=== PATIENT | male | born 1965 | race Caucasian/White ===

== ENCOUNTER 2017-11-10 20:06 | Inpatient (IN) | payer OTHER ==
--- OUTSIDE RECORDS SUMMARY | 2017-11-10 20:09 | XMS REPORT | Clinical Summary ---
:1965 Author Organization [facility] Address [address] [place] [address] Phone Care Team Providers Name Role Phone Unavailable Primary Care Provider Unavailable Allergies Active Allergy Reactions Severity Noted Date Comments Morphine 04/16/2017 Current Medications Prescription Sig. Disp. Refills Start Date End Date Status benzocaine (ORAJEL) Use as 9.45 g 0 04/21/2017 Active 7.5 % oral gel directed in the mouth or throat 3 (three) times daily as needed for Pain. amLODIPine Take 10 mg by Discontinued (NORVASC) 10 MG mouth daily. 7 tablet furosemide (LASIX) Take 20 mg by Discontinued 20 MG tablet mouth daily. 7 cilostazol (PLETAL) Take 100 mg by Discontinued 100 MG tablet mouth 2 (two) 7 times daily. multivitamin Take 1 tablet 30 tablet 0 04/20/2017 (THERAGRAN) tablet by mouth daily 7 for 30 days. folic acid Take 1 tablet 30 tablet 0 04/20/2017 (FOLVITE) 1 MG (1 mg total) 7 tablet by mouth daily for 30 days. levETIRAcetam Take 1 tablet 60 tablet 0 04/19/2017 (KEPPRA) 500 MG (500 mg total) 7 tablet by mouth 2 (two) times daily for 30 days New seizure medicine. amLODIPine Take 1 tablet 30 tablet 0 04/19/2017 (NORVASC) 10 MG (10 mg total) 7 tablet by mouth daily for 30 days. sodium bicarbonate Take 1 tablet 60 tablet 0 04/19/2017 Discontinued 650 MG tablet (650 mg total) 7 by mouth 2 (two) times daily for 30 days To treat acid level. Lactobacillus Take 1 tablet 60 tablet 0 04/21/2017 acidoph-L.bulgar by mouth 2 7 (FLORANEX) 1 (two) times million cell Tab daily for 30 per tablet days For diarrhea. loperamide Take 1 capsule 30 capsule 0 04/21/2017 (IMODIUM) 2 mg (2 mg total) 7 capsule by mouth 4 (four) times daily as needed for Diarrhea (max 16 mg per day) for up to 10 days. sodium bicarbonate Take 2 tablets 180 tablet 0 04/21/2017 650 MG tablet (1,300 mg 7 total) by mouth 3 (three) times daily for 30 days To treat acid level. Active Problems Problem Noted Date Metabolic acidosis 04/20/2017 H/O ETOH abuse 04/17/2017 Acute kidney injury (HCC) 04/17/2017 Hypertension, essential 04/17/2017 Leukocytosis 04/17/2017 Tongue laceration 04/17/2017 Status epilepticus ([facility]) 04/16/2017 Encounters Date Type Specialty Care Team Description 04/16/2017 - Hospital Encounter General Internal Jose Desouza Status epilepticus 04/21/2017 Medicine Shalini, ([facility]);Acute MD respiratory failure Danna, with hypoxia MD Roxana ([facility]);Acute encephalopathy;CODY (acute kidney injury) ([facility]);Acute kidney injury ([facility]);H/O ETOH abuse;Hypertension, essential;Laceration of tongue, subsequent encounter;Tetrahydro cannabinol (THC) use disorder, mild, abuse after 11/09/2016 Social History Tobacco Use Types Packs/Day Years Used Date Current Every Day Smoker 1 Smokeless Tobacco: Current User Tobacco Cessation: Ready to Quit: No; Counseling Given: Yes Sex Assigned at Date Recorded Not on file Last Filed Vital Signs Vital Sign Reading Time Taken Blood Pressure 133/63 04/21/2017 8:05 AM [facility] Pulse 58 04/21/2017 8:05 AM [facility] Temperature 36.8 C (98.2 F) 04/21/2017 8:05 AM [facility] Respiratory Rate 18 04/21/2017 8:05 AM [facility] Oxygen Saturation 98% 04/21/2017 8:05 AM [facility] Inhaled Oxygen Concentration - - Weight 93.2 kg (205 lb 8 oz) 04/21/2017 5:00 AM [facility] Height 185.4 cm (6' 1") 04/16/2017 8:00 PM [facility] Body Mass Index 27.11 04/21/2017 5:00 AM [facility] Plan of Treatment Not on file Results EKG-SCANNED (04/24/2017 2:03 PM)Basic Metabolic Panel (04/21/2017 5:12 AM) Only the most recent of6 resultswithin the time period is included. Component Value Ref Range Sodium 137 136 - 145 meq/L Potassium 3.6 3.5 - 5.1 meq/L Chloride 110 (H) 98 - 107 meq/L CO2 16 (L) 22 - 29 meq/L BUN 18 7 - 21 mg/dL Creatinine 2.02 (H) 0.57 - 1.25 mg/dL Glucose 91 70 - 105 mg/dL Calcium 9.3 8.4 - 10.2 mg/dL EGFR 35Comment: ESTIMATED GFR IS NOT ACCURATE mL/min/1.73 sq m CREATININE CLEARANCE IN PREDICTING GLOMERULAR FILTRATION RATE. ESTIMATED GFR IS NOT APPLICABLE FOR DIALYSIS PATIENTS. Specimen Performing Laboratory Blood [address] [address] Blood gas, arterial (04/20/2017 10:49 AM)Only the most recent of2 resultswithin the time period is included. Component Value Ref Range pH, Arterial 7.38 7.35 - 7.45 pCO2, Arterial 28 (L) 35 - 45 mmHg pO2, Arterial 95 (H) 80 - 90 mmHg O2 Sat, Arterial 97.4 (H) 96.0 - 97.0 % HCO3, Arterial 16 (L) 21 - 29 mmol/L Base Excess, Arterial -7.2 (L) -2.0 - 3.0 mmol/L Patient Temperature 36.5 C FIO2 21.0 % Specimen Performing Laboratory Blood, Arterial - Arm, Right [address] [address] PTH, intact (04/20/2017 4:25 AM) Component Value Ref Range PTH 41.8 8.5 - 72.5 pg/mL Specimen Performing Laboratory Blood - Arm, Left [address] [address] STOOL PATH CHARGE (04/19/2017 12:58 PM) Component Value Ref Range Pathogen exam charged Done Specimen Performing Laboratory Stool [address] [address] Shiga Toxin Screen (04/19/2017 12:58 PM) Component Value Ref Range Shiga toxin 1 Not detected Not detected Shiga toxin 2 Not detected Not detected Specimen Performing Laboratory Stool [address] [address] Clostridium difficile Toxin PCR (04/19/2017 12:58 PM) Component Value Ref Range C.Diff Toxin, PCR Not Detected Not Detected Specimen Performing Laboratory Stool [address] [address] Narrative This qualitative real-time polymerase chain reaction assay detects the tcdB gene, encoded on the C.difficile pathogenicity locus (PaLoc).The product of tcdB , toxin B, is a cytotoxin essential for causing C.difficile-associated disease (CDAD) and is found in virtually all toxigenic C.difficile. This assay is performed for patients suspected of having either community- acquired or nosocomial CDAD.Accordingly, only symptomatic patients should be tested and formed stools will be rejected unless ileus is present (i.e., specified when ordering).Patients may be colonized with toxigenic C.difficile strains not causing active disease; therefore, clinical correlation is needed when deciding how to manage patients with a positive test result. The assay has not been validated as a test of cure as amplifiable nucleic acid may persist after effective treatment; therefore, follow-up testing of a positive result is not recommended. Ova and Parasite Examination (04/19/2017 12:58 PM) Specimen Performing Laboratory Stool [address] [address] Narrative See Scanned Results. Stool culture + Shiga toxin (04/19/2017 12:58 PM) Component Value Ref Range Result No Salmonella, Shigella or Campylobacter isolated Specimen Performing Laboratory Stool [address] [address] Sodium, random urine (04/19/2017 6:13 AM)Only the most recent of2 resultswithin the time period is included. Component Value Ref Range Sodium Urine 65 meq/L Specimen Performing Laboratory Urine [address] [address] Narrative Reference Range: No Normals Prothrombin time/INR (04/19/2017 5:37 AM)Only the most recent of2 resultswithin the time period is included. Component Value Ref Range Protime 14.5 11.7 - 14.7 seconds INR 1.1 <=5.9 Specimen Performing Laboratory Blood - Arm, Right [address] [address] Narrative RECOMMENDED COUMADIN/WARFARIN INR THERAPY RANGES STANDARD DOSE: 2.0 - 3.0 Includes: PROPHYLAXIS for venous thrombosis, systemic embolization; TREATMENT for venous thrombosis and/or pulmonary embolus. HIGH RISK: Target INR is 2.5-3.5 for patients with mechanical heart valves. Rapid drug screen, urine (04/18/2017 2:59 PM) Component Value Ref Range Barbiturate Screen Negative Negative Benzodiazepine Screen Positive (A) Negative Cocaine (Metab.) Screen Negative Negative Methadone Screen Negative Negative Opiate Screen Negative Negative Cannabinoid Screen Negative Negative Amph/Methamph Screen Negative Negative Phencyclidine Screen Negative Negative Oxycodone Screen Negative Negative Specimen Performing Laboratory Urine - Urine, Voided [address] [address] Narrative DRUGCUTOFF CONC. Cocaine 300 ng/mL Cxplkjxwyez15 ng/mL Rnqmulwfkglili317 ng/mL Barbiturate 200 ng/mL Mddxbgyeamxpx34 ng/mL Sjzkpb943 ng/mL Methadone 300 ng/mL Amphetamine/ 1000 ng/mL Methamphetamine Oxycodone 300 ng/mL This assay provides an unconfirmed qualitative test result for the clinical management of patients in emergency situations. Chain of custody not maintained. Some jkax-nfx-notbbai medications, as well as adulterants, may cause inaccurate results. Clinical correlation should be applied. A more comprehensive drug screen or confirmation of a detected drug may be performed upon request. CBC with platelet count + automated diff (04/18/2017 6:18 AM)Only the most recent of3 resultswithin the time period is included. Component Value Ref Range WBC 9.9 3.5 - 10.5 K/L RBC 4.01 (L) 4.63 - 6.08 M/L Hemoglobin 13.2 (L) 13.7 - 17.5 GM/DL Hematocrit 38.1 (L) 40.1 - 51.0 % MCV 95.0 (H) 79.0 - 92.2 fL MCH 32.9 (H) 25.7 - 32.2 pg MCHC 34.6 32.3 - 36.5 GM/DL RDW 13.1 11.6 - 14.4 % Platelets 121 (L) 150 - 450 K/CU MM MPV 10.1 9.4 - 12.4 fL nRBC 0 0 - 0 /100 WBC % Neutros 73 % % Lymphs 17 % % Monos 8 % % Eos 2 % % Baso 0 % # Neutros 7.25 (H) 1.78 - 5.38 K/L # Lymphs 1.66 1.32 - 3.57 K/L # Monos 0.76 0.30 - 0.82 K/L # Eos 0.19 0.04 - 0.54 K/L # Baso 0.03 0.01 - 0.08 K/L Immature Granulocytes-Relative 0 0 - 1 % Specimen Performing Laboratory Blood [facility] [address] [address] CBC with platelet count + automated diff (04/18/2017 6:18 AM)Only the most recent of3 resultswithin the time period is included. Specimen Performing Laboratory Blood Narrative The following orders were created for panel order CBC with platelet count + automated diff. Procedure Abnormality Status --------- ------ CBC with platelet count ...[[id number]]AbnormalFinal result Please view results for these tests on the individual orders. US renal complete (04/17/2017 9:57 PM) Specimen Performing Laboratory [employer] Narrative FINAL REPORT Renal ultrasound. Clinical History: acute kidney injury. Comparison Study: None. Findings: The right kidney measures 11.7 x 6.4 x 6.6 cm and left kidney measures 12.7 x 6.8 x 6.2 cm. There is no evidence of hydronephrosis, nephrolithiasis or renal mass on either side. The echogenicity is normal bilaterally. The cortical thickness on the right side is 1.8 cm and on the left side is 1.9 cm. Color flow is documented to both kidneys. The bladder is partially filled with urine. Impression: Morphologically normal appearing kidneys bilaterally with no evidence of hydronephrosis. Signed: Zion Jack MD Report Verified Date/Time:04/17/2017 22:34:25 Reading Location: [facility] [address] Consult Reading Room Procedure Note Interface, External Ris In - 04/17/2017 10:36 PM [facility] FINAL REPORT Renal ultrasound. Clinical History: acute kidney injury. Comparison Study: None. Findings: The right kidney measures 11.7 x 6.4 x 6.6 cm and left kidney measures 12.7 x 6.8 x 6.2 cm. There is no evidence of hydronephrosis, nephrolithiasis or renal mass on either side. The echogenicity is normal bilaterally. The cortical thickness on the right side is 1.8 cm and on the left side is 1.9 cm. Color flow is documented to both kidneys. The bladder is partially filled with urine. Impression: Morphologically normal appearing kidneys bilaterally with no evidence of hydronephrosis. Signed: Zion Jack MD Report Verified Date/Time: 04/17/2017 22:34:25 Reading Location: [facility] [id number] Consult Reading Room brain without IV contrast (04/17/2017 6:31 PM) Specimen Performing Laboratory [employer] [facility] Narrative FINAL REPORT MRI Brain without contrast Clinical History: Epilepsy Stroke evaluation Technique: MRI of the brain utilizing axial T2, FLAIR, GRE, DWI; coronal T1, T2, FLAIR; sagittal T1-weighted images. Comparisons: None Findings: There is no evidence of acute infarct or hemorrhage. There is periventricular and subcortical white matter T2 hyperintensity, which is nonspecific but compatible with chronic microvascular ischemic change. There is mild generalized parenchymal volume loss without hydrocephalus, midline shift, or apparent mass effect. There are no extra-axial fluid collections. The craniocervical junction is preserved. The major intracranial flow-voids appear patent. Please note that the coronal sequences are motion degraded, limiting evaluation of the hippocampi as well as evaluation for focal dysplasia or heterotopia. IMPRESSION: No evidence of acute infarct, hemorrhage, or hydrocephalus. Repeat thin section coronal T1, T2, and FLAIR sequences are recommended for better evaluation of the hippocampi and for possible seizure foci. Signed: Wicho Davis MD Report Verified Date/Time:04/17/2017 19:18:34 Reading [facility] Rad[facility] Reading Room Procedure Note Interface, External Ris In - 04/17/2017 7:20 PM [facility] FINAL REPORT MRI Brain without contrast Clinical History: Epilepsy Stroke evaluation Technique: MRI of the brain utilizing axial T2, FLAIR, GRE, DWI; coronal T1, T2, FLAIR; sagittal T1-weighted images. Comparisons: None Findings: There is no evidence of acute infarct or hemorrhage. There is periventricular and subcortical white matter T2 hyperintensity, which is nonspecific but compatible with chronic microvascular ischemic change. There is mild generalized parenchymal volume loss without hydrocephalus, midline shift, or apparent mass effect. There are no extra-axial fluid collections. The craniocervical junction is preserved. The major intracranial flow-voids appear patent. Please note that the coronal sequences are motion degraded, limiting evaluation of the hippocampi as well as evaluation for focal dysplasia or heterotopia. IMPRESSION: No evidence of acute infarct, hemorrhage, or hydrocephalus. Repeat thin section coronal T1, T2, and FLAIR sequences are recommended for better evaluation of the hippocampi and for possible seizure foci. Signed: Wicho Davis MD Report Verified Date/Time: 04/17/2017 19:18:34 Reading Location: [facility] Rad[facility] Reading Room Creatine Kinase (CK) (04/17/2017 9:23 AM) Component Value Ref Range Total CK 136 29 - 200 U/L Specimen Performing Laboratory Blood - Arm, [address] [address] Urea Nitrogen, random urine (04/17/2017 9:08 AM) Component Value Ref Range Urea Nitrogen, Ur 172 mg/dL Specimen Performing Laboratory Urine - Urine, [address] [address] Narrative Reference Range: No Normals Myoglobin, random urine (04/17/2017 9:08 AM) Component Value Ref Range Myoglobin, Urine 32 (H) <28 mcg/L Comment: This test was developed and its analytical performance characteristics have been determined by [facility]. It has not been cleared or approved by the US Food and Drug Administration. This assay has been validated pursuant to the CLIA regulations and is used for clinical purposes. Specimen Performing Laboratory Urine - Urine, [facility] [address] [place] [address] Narrative Performing Lab *[facility], [address] [place] [address] B Aime POSADAS, FCAP Creatinine, random urine (04/17/2017 9:08 AM) Component Value Ref Range Creatinine, Ur 69.7 mg/dL Specimen Performing Laboratory Urine - Urine, [address] [address] Narrative Reference Range: No Normals Urinalysis w/Microscopic (04/17/2017 9:08 AM)Only the most recent of2 resultswithin the time period is included. Component Value Ref Range Color, UA Light Yellow Clarity, UA Clear Specific [place], UA 1.006 1.001 - 1.035 pH, UA 6.0 5.0 - 8.0 Protein, UA 30 mg/dL (A) Negative Glucose, UA Negative Negative Ketones, UA Negative Negative Bilirubin, UA Negative Negative Blood, UA Small (A) Negative Nitrite, UA Negative Negative Leukocytes, UA Large (A) Negative Urobilinogen, UA 0.2 0.2 - 1.0 mg/dL RBC, UA 7 /HPF WBC, UA 21 /HPF Bacteria, UA Occasional Squam Epithel, UA <1 /HPF Uric Acid Crystals Rare Specimen Source Urine, [place] Specimen Performing Laboratory Urine - Urine, [address] [address] Eosinophil smear (04/17/2017 9:08 AM) Component Value Ref Range Eosinophil Smear No EOS seen No EOS seen Specimen Performing Laboratory Urine - Urine, [address] [address] EEG monitoring with video recording each 24 hours (04/17/2017 7:07 AM)Only the most recent of2 resultswithin the time period is included. Specimen Performing Laboratory [facility] Narrative DATE OF TEST: 04/17/2017 DATE OF REPORT 04/17/2017 ACC: [id number] EE Start time: 16:42 Stop time: 18:44 ICD-10: R56.9 CPT Code: 25093 HISTORY: 51 y/o woman with history of epilepsy presents with status epilepticus, now intubated and sedated MEDICATIONS: Ativan, versed, rocephin, propofol, ketamine, fentanyl, diprivan TECHNICAL SUMMARY: This is a digital video EEG recorded with 32 input channels reviewed with bipolar and referential montages using the modified combinatorial system nomenclature. DESCRIPTION OF RECORD: The entire EEG is technically limited. There are brief periods of reduced artifact in a few of the EEG channels during which the background consists of 2-3 Hz delta intermixed with 4-8 Hz alpha and theta activity and occasional faster frequencies. IMPRESSION: Technically limited EEG. CLINICAL CORRELATION: The majority of the EEG background is obscured by artifact. There are brief periods where a few channels are visible during which there are no seizures. Furthermore, this recording condition has a low sensitivity for differentiating mild encephalopathy from normal lianet-sleep somnolence. Aixa Reis M.D. Neurophysiology Fellow I have reviewed this electroencephalogram and this report and agree with its interpretation. Shahnaz Davis MD Neurophysiology Attending Procedure Note Interface, External Ris In - 04/17/2017 6:01 PM [facility] DATE OF TEST: 04/17/2017 DATE OF REPORT 04/17/2017 ACC: [id number] EE Start time: 16:42 Stop time: 18:44 ICD-10: R56.9 CPT Code: 66101 HISTORY: 51 y/o woman with history of epilepsy presents with status epilepticus, now intubated and sedated MEDICATIONS: Ativan, versed, rocephin, propofol, ketamine, fentanyl, diprivan TECHNICAL SUMMARY: This is a digital video EEG recorded with 32 input channels reviewed with bipolar and referential montages using the modified combinatorial system nomenclature. DESCRIPTION OF RECORD: The entire EEG is technically limited. There are brief periods of reduced artifact in a few of the EEG channels during which the background consists of 2-3 Hz delta intermixed with 4-8 Hz alpha and theta activity and occasional faster frequencies. IMPRESSION: Technically limited EEG. CLINICAL CORRELATION: The majority of the EEG background is obscured by artifact. There are brief periods where a few channels are visible during which there are no seizures. Furthermore, this recording condition has a low sensitivity for differentiating mild encephalopathy from normal lianet-sleep somnolence. Aixa Reis M.D. Neurophysiology Fellow I have reviewed this electroencephalogram and this report and agree with its interpretation. Shahnaz Davis MD Neurophysiology Attending 12 lead (04/16/2017 11:29 AM) Specimen Performing Laboratory GE [facility] Narrative Ventricular Rate 98 BPM Atrial Rate 98 BPM P-R Interval 154 ms QRS Duration 78 ms Q-T Interval 366 ms QTC Calculation(Bazett) 467 ms P Kent 43 degrees R Kent 0 degrees T Kent 31 degrees Normal sinus rhythm Normal ECG No previous ECGs available Confirmed by MD Wilson Roberto ([id number]) on 04/16/2017 5:38:41 PM Procedure Note Interface, External Ris In - 04/16/2017 5:38 PM [facility] Ventricular Rate 98 BPM Atrial Rate 98 BPM P-R Interval 154 ms QRS Duration 78 ms Q-T Interval 366 ms QTC Calculation(Bazett) 467 ms P Kent 43 degrees R Kent 0 degrees T Kent 31 degrees Normal sinus rhythm Normal ECG No previous ECGs available Confirmed by MD Wilson Roberto ([id number]) on 04/16/2017 5:38:41 PM XR chest 1 view portable / bedside (04/16/2017 9:12 AM) Specimen Performing Laboratory [facility] Narrative FINAL REPORT Chest two views AP 04/16/2017 9:15 AM CLINICAL INDICATION: intubated COMPARISON: None available IMPRESSION: Support hardware is in satisfactory radiographic position. Cardiomediastinal contours are within normal limits. There is central pulmonary vasculature congestion without remarkable peripheral edema. There are streaky foci of atelectasis bilaterally. Superimposed pneumonia should be excluded clinically. Signed: Rogerio Hernandez MD Report Verified Date/Time:04/16/2017 09:16:32 Reading Location[facility] Rad[facility] Reading Room Procedure Note Interface, External Ris In - 04/16/2017 9:18 AM [facility] FINAL REPORT Chest two views AP 04/16/2017 9:15 AM CLINICAL INDICATION: intubated COMPARISON: None available IMPRESSION: Support hardware is in satisfactory radiographic position. Cardiomediastinal contours are within normal limits. There is central pulmonary vasculature congestion without remarkable peripheral edema. There are streaky foci of atelectasis bilaterally. Superimposed pneumonia should be excluded clinically. Signed: Rogerio Hernandez MD Report Verified Date/Time: 04/16/2017 09:16:32 Reading Location[facility] Rad[facility] Reading Room AWAKE/ASLEEP (04/16/2017 9:08 AM) Specimen Performing Laboratory [facility] Narrative DATE OF TEST: 04/16/2017 DATE OF REPORT 04/16/2017 ACC: [id number] EE Start time: 08:21 Stop time: 08:42 ICD-10: R56.9 CPT Code: 60056 HISTORY: 51 y/o woman with history of epilepsy presents with status epilepticus, now intubated and sedated MEDICATIONS: Ativan, versed, rocephin, propofol, ketamine, fentanyl, diprivan TECHNICAL SUMMARY: This is a digital video EEG recorded with 32 input channels reviewed with bipolar and referential montages using the modified combinatorial system nomenclature. DESCRIPTION OF RECORD: Neither a posterior dominant rhythm nor anterior-posterior voltage gradient are present. The EEG background consists of 5-7 Hz theta activities intermixed with 3-4 Hz delta activities. Superimposed on the background are diffuse 12-14 Hz spindle-like activities. There are brief periods of background voltage attenuation. The EEG is unreactive to external stimulus. No sleep is recorded. There are no clinical or electrographic seizures. HV: Hyperventilation was not performed. PHOTIC STIMULATION: Flash stimulation was done from 3-21 Hz; no photic driving was seen; photoparoxysmal responses were absent. IMPRESSION: Abnormal EEG due to: 1. Diffuse delta and theta background slowing, unreactive 2. Excessive beta activity CLINICAL CORRELATION: The diffuse slowing in this record is consistent with a severe degree of encephalopathy. The excessive beta activity is likely related to medications, thus the degree of encephalopathy in the record may be in part due to pharmacological sedation.An EEG without epileptiform discharges does not exclude the possibility of epilepsy. If the clinical suspicion of epilepsy remains, consider additional EEG recordings. Aixa Reis M.D. Neurophysiology Fellow Attending note: I personally reviewed this EEG record in its entirety and I agree with the details of this report. Phoebe Villar MD Epilepsy Attending Procedure Note Interface, External Ris In - 04/16/2017 1:27 PM [facility] DATE OF TEST: 04/16/2017 DATE OF REPORT 04/16/2017 ACC: [id number] EE Start time: 08:21 Stop time: 08:42 ICD-10: R56.9 CPT Code: 87747 HISTORY: 51 y/o woman with history of epilepsy presents with status epilepticus, now intubated and sedated MEDICATIONS: Ativan, versed, rocephin, propofol, ketamine, fentanyl, diprivan TECHNICAL SUMMARY: This is a digital video EEG recorded with 32 input channels reviewed with bipolar and referential montages using the modified combinatorial system nomenclature. DESCRIPTION OF RECORD: Neither a posterior dominant rhythm nor anterior-posterior voltage gradient are present. The EEG background consists of 5-7 Hz theta activities intermixed with 3-4 Hz delta activities. Superimposed on the background are diffuse 12-14 Hz spindle-like activities. There are brief periods of background voltage attenuation. The EEG is unreactive to external stimulus. No sleep is recorded. There are no clinical or electrographic seizures. HV: Hyperventilation was not performed. PHOTIC STIMULATION: Flash stimulation was done from 3-21 Hz; no photic driving was seen; photoparoxysmal responses were absent. IMPRESSION: Abnormal EEG due to: 1. Diffuse delta and theta background slowing, unreactive 2. Excessive beta activity CLINICAL CORRELATION: The diffuse slowing in this record is consistent with a severe degree of encephalopathy. The excessive beta activity is likely related to medications, thus the degree of encephalopathy in the record may be in part due to pharmacological sedation. An EEG without epileptiform discharges does not exclude the possibility of epilepsy. If the clinical suspicion of epilepsy remains, consider additional EEG recordings. Aixa Reis M.D. Neurophysiology Fellow Attending note: I personally reviewed this EEG record in its entirety and I agree with the details of this report. Phoebe Villar MD Epilepsy Attending Folate, Serum (04/16/2017 5:23 AM) Component Value Ref Range Folate 8.0 >=7.0 ng/mL Specimen Performing Laboratory [address] [address] Vitamin B12 (04/16/2017 5:23 AM) Component Value Ref Range Vitamin B12 450 213 - 816 pg/mL Specimen Performing Laboratory Blood [address] [address] Urine culture (04/16/2017 4:49 AM) Component Value Ref Range Result No growth Specimen Performing Laboratory Urine - Urine, [place] [address] [address] Blood culture (04/16/2017 4:48 AM) Component Value Ref Range Result No growth in 5 days Specimen Performing Laboratory Blood - Arm, Right [address] [address] Phosphorus (04/16/2017 4:47 AM) Component Value Ref Range Phosphorus 3.0Comment: Specimen moderately hemolyzed 2.3 - 4.7 mg/dL Specimen Performing Laboratory [address] [address] Magnesium (04/16/2017 4:47 AM) Component Value Ref Range Magnesium 3.0 (H)Comment: Specimen moderately hemolyzed 1.6 - 2.6 mg/dL Specimen Performing Laboratory [address] [address] Hepatic function panel (04/16/2017 4:47 AM) Component Value Ref Range Protein, Total 8.0Comment: Specimen moderately hemolyzed 6.0 - 8.3 gm/dL Albumin 3.8Comment: Specimen moderately hemolyzed 3.5 - 5.0 g/dL Total Bilirubin 0.3Comment: Specimen moderately hemolyzed 0.2 - 1.2 mg/dL Bilirubin, Direct 0.1Comment: Specimen moderately hemolyzed 0.1 - 0.5 mg/dL Alkaline Phosphatase 79 40 - 150 U/L AST 34Comment: Specimen moderately hemolyzed 5 - 34 U/L ALT 30Comment: Specimen moderately hemolyzed 6 - 55 U/L Specimen Performing Laboratory Blood [facility] [address] [address] after 11/09/2016
--- OUTSIDE RECORDS SUMMARY | 2017-11-10 20:10 | XMS REPORT ---
:1965 [facility] Organization [facility] Address [address] [place] [address] Dr. Monsivais [address] [place] [id number] Care Team Providers Name Role Phone VICTOR M SEGURA Unavailable Unavailable Problems This patient has no known problems. Allergies, Adverse Reactions, Alerts This patient has no known allergies or adverse reactions. Medications This patient has no known medications. Results Test Description Test Time Test Comments Text Results Atomic Results Result Comments BLOOD CULTURE 2017-04-21 10:00:00 Test Item Value Reference Range Comments CULTURE (BEAKER) (test svdg=5463) No growth in 5 days STOOL CULTURE + SHIGA [id number] 09:59:00 Test Item Value Reference Range Comments CULTURE (BEAKER) (test No Salmonella, Shigella or ojhb=6293) Campylobacter isolated STOOL PATH [id number] 09:01:00 Test Item Value Reference Range Comments PATHOGEN EXAM CHARGED (BEAKER) (test nski=4478) Done BASIC METABOLIC [id number] 06:59:00 Test Item Value Reference Range Comments SODIUM (BEAKER) (test 137 meq/L 136-145 zdhq=121) POTASSIUM (BEAKER) (test 3.6 meq/L 3.5-5.1 vsoq=978) CHLORIDE (BEAKER) (test 110 meq/L 98-107 oqax=986) CO2 (BEAKER) (test 16 meq/L 22-29 byjo=121) BLOOD UREA NITROGEN 18 mg/dL 7-21 (BEAKER) (test avgb=432) CREATININE (BEAKER) (test 2.02 mg/dL 0.57-1.25 cdwv=675) GLUCOSE RANDOM (BEAKER) 91 mg/dL 70-105 (test dmsv=980) CALCIUM (BEAKER) (test 9.3 mg/dL 8.4-10.2 ehwd=639) EGFR (BEAKER) (test 35 mL/min/1.73 sq m ESTIMATED GFR IS NOT curz=0371) ACCURATE CREATININE CLEARANCE IN PREDICTING GLOMERULAR FILTRATION RATE. ESTIMATED GFR IS NOT APPLICABLE FOR DIALYSIS PATIENTS. SHIGA TOXIN [id number] 15:48:00 Test Item Value Reference Range Comments SHIGA TOXIN 1 (BEAKER) (test nooj=7467) Not detected Not detected SHIGA TOXIN 2 (BEAKER) (test nxnj=6146) Not detected Not detected CLOSTRIDIUM DIFFICILE TOXIN [id number] 15:13:00 Test Item Value Reference Range Comments CLOSTRIDIUM DIFFICILE TOXIN, PCR (BEAKER) (test Not Detected Not Detected anci=1145) This qualitative real-time polymerase chain reaction assay detects the tcdB gene , encoded on the C.difficile pathogenicity locus (PaLoc). The product of tcdB, toxin B, is a cytotoxin essential for causing C.difficile-associated disease ( CDAD) and is found in virtually all toxigenic C.difficile.This assay is performed for patients suspected of having either community-acquired or nosocomial CDAD. Accordingly, only symptomatic patients should be tested and formed stools will be rejected unless ileus is present (i.e., specified when ordering). Patients may be colonized with toxigenic C.difficile strains not causing active disease; therefore, clinical correlation is needed when deciding how to manage patients with a positive test result.The assay has not been validated as a test of cure as amplifiable nucleic acid may persist after effective treatment; therefore, follow-up testing of a positive result is not recommended.BLOOD GAS, [id number] 11:03:00 Test Item Value Reference Range Comments PH ARTERIAL (BEAKER) (test csii=621) 7.38 7.35-7.45 PCO2 ARTERIAL (BEAKER) (test lksx=647) 28 mmHg 35-45 PO2 ARTERIAL (BEAKER) (test xuzl=577) 95 mmHg 80-90 O2 SATURATION ARTERIAL (BEAKER) (test irhu=403) 97.4 % 96.0-97.0 HCO3 ARTERIAL (BEAKER) (test plmf=509) 16 mmol/L 21-29 BASE EXCESS ARTERIAL (BEAKER) (test bzva=928) -7.2 mmol/L -2.0-3.0 PATIENT TEMPERATURE (BEAKER) (test iuup=6592) 36.5 C FIO2 (BEAKER) (test opcj=8231) 21.0 % BASIC METABOLIC [id number] 05:14:00 Test Item Value Reference Range Comments SODIUM (BEAKER) (test 136 meq/L 136-145 qfzt=372) POTASSIUM (BEAKER) (test 3.9 meq/L 3.5-5.1 xybq=799) CHLORIDE (BEAKER) (test 111 meq/L 98-107 tmwj=606) CO2 (BEAKER) (test 13 meq/L 22-29 pmng=419) BLOOD UREA NITROGEN 20 mg/dL 7-21 (BEAKER) (test czfm=458) CREATININE (BEAKER) (test 2.70 mg/dL 0.57-1.25 xuss=852) GLUCOSE RANDOM (BEAKER) 77 mg/dL 70-105 (test mgpy=026) CALCIUM (BEAKER) (test 9.3 mg/dL 8.4-10.2 ufix=140) EGFR (BEAKER) (test 25 mL/min/1.73 sq m ESTIMATED GFR IS NOT gbvf=4866) ACCURATE CREATININE CLEARANCE IN PREDICTING GLOMERULAR FILTRATION RATE. ESTIMATED GFR IS NOT APPLICABLE FOR DIALYSIS PATIENTS. PTH, [id number] 05:03:00 Test Item Value Reference Range Comments PARATHYROID HORMONE INTACT (BEAKER) (test 41.8 pg/mL 8.5-72.5 qcom=796) BASIC METABOLIC [id number] 07:10:00 Test Item Value Reference Range Comments SODIUM (BEAKER) (test 136 meq/L 136-145 vktj=350) POTASSIUM (BEAKER) (test 3.4 meq/L 3.5-5.1 gvbi=035) CHLORIDE (BEAKER) (test 109 meq/L 98-107 urcb=232) CO2 (BEAKER) (test 15 meq/L 22-29 twpq=963) BLOOD UREA NITROGEN 23 mg/dL 7-21 (BEAKER) (test ppbs=998) CREATININE (BEAKER) (test 3.91 mg/dL 0.57-1.25 ndgp=537) GLUCOSE RANDOM (BEAKER) 79 mg/dL 70-105 (test gfwv=633) CALCIUM (BEAKER) (test 8.9 mg/dL 8.4-10.2 ympa=871) EGFR (BEAKER) (test 16 mL/min/1.73 sq m ESTIMATED GFR IS NOT iesg=2146) ACCURATE CREATININE CLEARANCE IN PREDICTING GLOMERULAR FILTRATION RATE. ESTIMATED GFR IS NOT APPLICABLE FOR DIALYSIS PATIENTS. SODIUM, RANDOM [id number] 06:58:00 Test Item Value Reference Range Comments SODIUM URINE (BEAKER) (test nbme=139) 65 meq/L Reference Range: No NormalsPROTHROMBIN [id number] 06:47:00 Test Item Value Reference Range Comments PROTIME (BEAKER) (test bdit=739) 14.5 seconds 11.7-14.7 INR (BEAKER) (test mvor=211) 1.1 <=5.9 RECOMMENDED COUMADIN/WARFARIN INR THERAPY RANGESSTANDARD DOSE: 2.0 - 3.0 Includes: PROPHYLAXIS forvenous thrombosis, systemic embolization; TREATMENT for venous thrombosis and/or pulmonary embolus.HIGH RISK: Target INR is 2.5-3.5 for patients with mechanical heart valves.RAPID DRUG SCREEN, [id number] 15: 43:00 Test Item Value Reference Range Comments BARBITURATE URINE (BEAKER) (test dzjh=038) Negative Negative BENZODIAZEPINE SCREEN URINE (BEAKER) (test Positive Negative jbzh=116) COCAINE (METAB.) SCREEN (BEAKER) (test hkbs=1651) Negative Negative METHADONE SCREEN (BEAKER) (test kchj=1807) Negative Negative OPIATE SCREEN URINE (BEAKER) (test vigu=605) Negative Negative CANNABINOID SCREEN URINE (BEAKER) (test rksf=331) Negative Negative AMPH/METHAMPH SCREEN (BEAKER) (test zwmm=5446) Negative Negative PHENCYCLIDINE SCREEN URINE (BEAKER) (test qwvd=906) Negative Negative OXYCODONE SCREEN URINE (BEAKER) (test jebi=5882) Negative Negative DRUG CUTOFF CONC.Cocaine 300 ng/mL Cannabinoid 50 ng/mL Benzodiazepine 200 ng/mLBarbiturate 200 ng/ mLPhencyclidine 25 ng/mLOpiate 300 ng/mLMethadone 300 ng/mLAmphetamine/ 1000 ng/mL MethamphetamineOxycodone 300 ng/mLThis assay provides an unconfirmed qualitative test result for the clinical management of patients in emergency situations. Chain of custody not maintained. Some ojcs-kyd-pjdgbyy medications, as well as adulterants, may cause inaccurate results. Clinical correlation should be applied. A more comprehensive drug screen or confirmation of a detected drug may be performed upon request.URINE [id number] 14:33:00 Test Item Value Reference Range Comments CULTURE (BEAKER) (test trnd=8022) No growth BASIC METABOLIC [id number] 08:09:00 Test Item Value Reference Range Comments SODIUM (BEAKER) (test 136 meq/L 136-145 yhmc=471) POTASSIUM (BEAKER) (test 3.5 meq/L 3.5-5.1 Specimen slightly ysim=956) hemolyzed CHLORIDE (BEAKER) (test 107 meq/L 98-107 iozu=817) CO2 (BEAKER) (test 15 meq/L 22-29 zkmp=314) BLOOD UREA NITROGEN 25 mg/dL 7-21 (BEAKER) (test vzyu=349) CREATININE (BEAKER) (test 4.75 mg/dL 0.57-1.25 Specimen slightly hyjh=732) hemolyzed GLUCOSE RANDOM (BEAKER) 74 mg/dL 70-105 (test fdrq=144) CALCIUM (BEAKER) (test 8.5 mg/dL 8.4-10.2 sjwt=571) EGFR (BEAKER) (test 13 mL/min/1.73 sq m ESTIMATED GFR IS NOT jqim=0615) ACCURATE CREATININE CLEARANCE IN PREDICTING GLOMERULAR FILTRATION RATE. ESTIMATED GFR IS NOT APPLICABLE FOR DIALYSIS PATIENTS. CBC W/PLT COUNT & AUTO [id number] 06:38:00 Test Item Value Reference Range Comments WHITE BLOOD CELL COUNT (BEAKER) (test kcgo=993) 9.9 K/ L 3.5-10.5 RED BLOOD CELL COUNT (BEAKER) (test csfy=571) 4.01 M/ L 4.63-6.08 HEMOGLOBIN (BEAKER) (test ppog=762) 13.2 GM/DL 13.7-17.5 HEMATOCRIT (BEAKER) (test zwol=758) 38.1 % 40.1-51.0 MEAN CORPUSCULAR VOLUME (BEAKER) (test vuvl=701) 95.0 fL 79.0-92.2 MEAN CORPUSCULAR HEMOGLOBIN (BEAKER) (test 32.9 pg 25.7-32.2 ltws=994) MEAN CORPUSCULAR HEMOGLOBIN CONC (BEAKER) (test 34.6 GM/DL 32.3-36.5 bvso=385) RED CELL DISTRIBUTION WIDTH (BEAKER) (test 13.1 % 11.6-14.4 cnmg=530) PLATELET COUNT (BEAKER) (test ijcz=488) 121 K/CU MM 150-450 MEAN PLATELET VOLUME (BEAKER) (test bexg=012) 10.1 fL 9.4-12.4 NUCLEATED RED BLOOD CELLS (BEAKER) (test 0 /100 WBC 0-0 zzjr=331) NEUTROPHILS RELATIVE PERCENT (BEAKER) (test 73 % eujj=920) LYMPHOCYTES RELATIVE PERCENT (BEAKER) (test 17 % bsfq=593) MONOCYTES RELATIVE PERCENT (BEAKER) (test 8 % gkdx=277) EOSINOPHILS RELATIVE PERCENT (BEAKER) (test 2 % qhpt=068) BASOPHILS RELATIVE PERCENT (BEAKER) (test 0 % vnhd=323) NEUTROPHILS ABSOLUTE COUNT (BEAKER) (test 7.25 K/ L 1.78-5.38 zzqp=828) LYMPHOCYTES ABSOLUTE COUNT (BEAKER) (test 1.66 K/ L 1.32-3.57 tunw=221) MONOCYTES ABSOLUTE COUNT (BEAKER) (test 0.76 K/ L 0.30-0.82 xnps=570) EOSINOPHILS ABSOLUTE COUNT (BEAKER) (test 0.19 K/ L 0.04-0.54 cdzd=309) BASOPHILS ABSOLUTE COUNT (BEAKER) (test 0.03 K/ L 0.01-0.08 gcqo=196) IMMATURE GRANULOCYTES-RELATIVE PERCENT (BEAKER) 0 % 0-1 (test blij=5587) U/S, RENAL, [id number] 22:34:00Reason for exam:->acute kidney injuryFINAL REPORT Renal ultrasound. Clinical History: acute kidney [...] no evidence of hydronephrosis. Signed: Zion Jack MDReport Verified Date/Time: 2016 22:34:25 Reading Location:[facility] C013 Consult Reading Room MR, BRAIN, WITHOUT [id number] 19:18:00Reason for exam:->Stroke evaluationFINAL REPORT MRI Brain without contrast Clinical History: EpilepsyStroke evaluation Technique: MRI of the brain utilizing axial T2, FLAIR , GRE, DWI; coronal T1, T2, FLAIR; sagittal [...] T1, T2, and FLAIR sequences are recommended forbetter evaluation of the hippocampi and for possible seizure foci. Signed: Wicho Davis MDReport Verified Date/Time: 04/17/2017 19:18:34 Reading Location: [facility] Radiology Reading Room EEG MONITORING WITH VIDEO RECORDING EACH 24 [id number] 18:01:00DATE OF TEST: 04/17/2017 DATE OF REPORT 04/17/2017 ACC: [id number] EE Start time: 16:42 Stop time: 18: 44 ICD-10: R56.9 CPT Code: 76666 HISTORY: 51 y/o woman with history of epilepsy presents with status epilepticus, now intubated and sedated MEDICATIONS: Ativan , versed, rocephin, propofol, ketamine, fentanyl, diprivan TECHNICAL [...] its interpretation. Shahnaz Davis MD Neurophysiology Attending URINALYSIS W/ [id number] 11:57:00 Test Item Value Reference Range Comments COLOR (BEAKER) (test rsir=683) Light Yellow CLARITY (BEAKER) (test dpkg=116) Clear SPECIFIC GRAVITY UA (BEAKER) (test snqi=568) 1.006 1.001-1.035 PH UA (BEAKER) (test wemw=359) 6.0 5.0-8.0 PROTEIN UA (BEAKER) (test cwnu=331) 30 mg/dL Negative GLUCOSE UA (BEAKER) (test znjs=806) Negative Negative KETONES UA (BEAKER) (test eqva=556) Negative Negative BILIRUBIN UA (BEAKER) (test ftyw=771) Negative Negative BLOOD UA (BEAKER) (test xqfu=113) Small Negative NITRITE UA (BEAKER) (test cgpp=023) Negative Negative LEUKOCYTE ESTERASE UA (BEAKER) (test ldtj=657) Large Negative UROBILINOGEN UA (BEAKER) (test vxuj=886) 0.2 mg/dL 0.2-1.0 RBC UA (BEAKER) (test mbmq=107) 7 /HPF WBC UA (BEAKER) (test ydlt=246) 21 /HPF BACTERIA (BEAKER) (test yihd=801) Occasional SQUAMOUS EPITHELIAL (BEAKER) (test zqrq=278) < /HPF URIC ACID CRYSTALS (BEAKER) (test iabm=2140) Rare SOURCE(BEAKER) (test tioz=3431) Urine, Cooper EOSINOPHIL SMEAR, [id number] 11:56:00 Test Item Value Reference Range Comments EOSINOPHIL SMEAR, URINE (BEAKER) (test No EOS seen No EOS seen fmry=9176) CREATININE, RANDOM [id number] 11:24:00 Test Item Value Reference Range Comments CREATININE URINE (BEAKER) (test gwpr=006) 69.7 mg/dL Reference Range: No NormalsSODIUM, RANDOM [id number] 11:24:00 Test Item Value Reference Range Comments SODIUM URINE (BEAKER) (test emkg=954) 58 meq/L Reference Range: No NormalsUREA NITROGEN, RANDOM [id number] 11:24:00 Test Item Value Reference Range Comments UREA NITROGEN URINE (BEAKER) (test ombg=968) 172 mg/dL Reference Range: No NormalsCREATINE KINASE (CK)2017-04-17 11:06:00 Test Item Value Reference Range Comments CREATINE KINASE TOTAL (BEAKER) (test pfui=593) 136 U/L 29-200 BASIC METABOLIC [id number] 04:53:00 Test Item Value Reference Range Comments SODIUM (BEAKER) (test 137 meq/L 136-145 ngfn=725) POTASSIUM (BEAKER) (test 3.4 meq/L 3.5-5.1 urfb=464) CHLORIDE (BEAKER) (test 105 meq/L 98-107 ktzc=384) CO2 (BEAKER) (test 21 meq/L 22-29 xhuk=539) BLOOD UREA NITROGEN 19 mg/dL 7-21 (BEAKER) (test dkff=993) CREATININE (BEAKER) (test 3.75 mg/dL 0.57-1.25 rmxi=685) GLUCOSE RANDOM (BEAKER) 100 mg/dL 70-105 (test uldz=881) CALCIUM (BEAKER) (test 8.6 mg/dL 8.4-10.2 zfjv=272) EGFR (BEAKER) (test 17 mL/min/1.73 sq m ESTIMATED GFR IS NOT paar=9087) ACCURATE CREATININE CLEARANCE IN PREDICTING GLOMERULAR FILTRATION RATE. ESTIMATED GFR IS NOT APPLICABLE FOR DIALYSIS PATIENTS. CBC W/PLT COUNT & AUTO [id number] 04:19:00 Test Item Value Reference Range Comments WHITE BLOOD CELL COUNT (BEAKER) (test dnny=505) 12.0 K/ L 3.5-10.5 RED BLOOD CELL COUNT (BEAKER) (test xglh=126) 4.19 M/ L 4.63-6.08 HEMOGLOBIN (BEAKER) (test lxer=869) 13.8 GM/DL 13.7-17.5 HEMATOCRIT (BEAKER) (test ajfa=765) 40.4 % 40.1-51.0 MEAN CORPUSCULAR VOLUME (BEAKER) (test otio=090) 96.4 fL 79.0-92.2 MEAN CORPUSCULAR HEMOGLOBIN (BEAKER) (test 32.9 pg 25.7-32.2 ierk=979) MEAN CORPUSCULAR HEMOGLOBIN CONC (BEAKER) (test 34.2 GM/DL 32.3-36.5 xihr=883) RED CELL DISTRIBUTION WIDTH (BEAKER) (test 13.4 % 11.6-14.4 dsji=666) PLATELET COUNT (BEAKER) (test ptfi=033) 118 K/CU MM 150-450 MEAN PLATELET VOLUME (BEAKER) (test wwxh=615) 9.5 fL 9.4-12.4 NUCLEATED RED BLOOD CELLS (BEAKER) (test 0 /100 WBC 0-0 ulcg=764) NEUTROPHILS RELATIVE PERCENT (BEAKER) (test 77 % ptdh=695) LYMPHOCYTES RELATIVE PERCENT (BEAKER) (test 15 % gtsp=997) MONOCYTES RELATIVE PERCENT (BEAKER) (test 7 % ytsv=086) EOSINOPHILS RELATIVE PERCENT (BEAKER) (test 1 % sysc=330) BASOPHILS RELATIVE PERCENT (BEAKER) (test 0 % awek=100) NEUTROPHILS ABSOLUTE COUNT (BEAKER) (test 9.20 K/ L 1.78-5.38 xxck=163) LYMPHOCYTES ABSOLUTE COUNT (BEAKER) (test 1.78 K/ L 1.32-3.57 fhgj=310) MONOCYTES ABSOLUTE COUNT (BEAKER) (test 0.82 K/ L 0.30-0.82 ngzk=422) EOSINOPHILS ABSOLUTE COUNT (BEAKER) (test 0.12 K/ L 0.04-0.54 xxgw=484) BASOPHILS ABSOLUTE COUNT (BEAKER) (test 0.04 K/ L 0.01-0.08 ggno=891) IMMATURE GRANULOCYTES-RELATIVE PERCENT (BEAKER) 0 % 0-1 (test skok=0156) EEG MONITORING WITH VIDEO RECORDING EACH 24 [id number] 17:57:00DATE OF TEST : 04/16/2017DATE OF REPORT 04/16/2017 ACC: [id number]: Start time: 08: 42 Stop time: 16:42ICD-10: R56.9CPT Code: 25055YYMVKMM: 51 y/o woman with history of epilepsy presents with status epilepticus, now intubated and sedatedMEDICATIONS: Ativan, versed, rocephin, propofol, ketamine, fentanyl, diprivanTECHNICAL SUMMARY: This is a digital video EEG recorded with 32 input channels reviewed with bipolar and referential montages using the modified combinatorial system nomenclature.DESCRIPTION OF RECORD: During the maximally alert state, the background consists of 5-7 Hz theta activities intermixed with 1.5-4 Hz delta activities. Towards the end of the recording, frequencies up to 9 -10Hz are present in the occipital region bilaterally, though a clear posterior dominant rhythm is not demonstrated. There are diffuse superimposed 12-14 Hz beta frequency activities. The EEG demonstrates spontaneous variability. No normal sleep structures are present. HV: Hyperventilation was not performed. PHOTIC STIMULATION: Flash stimulation was not done.IMPRESSION: Abnormal EEG due to: 1. Mildto moderate diffuse slowing 2. Excessive beta activity CLINICAL CORRELATION: The diffuse slowingin this record is consistent with a mild to moderate degree of encephalopathy. The excessive beta activity is likely related to medications, thus the degree of encephalopathy in the record may be in part due to pharmacological sedation. An EEG without epileptiform discharges does not exclude the possibility of epilepsy. When compared to the prior EEG, this EEG demonstrates improvement in the degree of encephalopathy.Aixa Reis M.D.Neurophysiology FellowAttending note: I personally reviewed this EEG record in tis entirety and I agree with the details of this report.Phoebe Villar MDEpilepsy Attending EEG AWAKE/ASLEEP AND [id number] 13:27:00Reason for exam:->status epilepticusDATE OF TEST: DATE OF REPORT 04/16/2017 ACC: [id number] EEart time: 08:21 Stop time: 08:42ICD-10: R56.9CPT Code: 43580EOLOJLE: 51 y/o woman with history of epilepsy presents with status epilepticus, now intubated and sedatedMEDICATIONS: Ativan, versed, rocephin, propofol, ketamine,fentanyl, diprivanTECHNICAL SUMMARY: This is a digital video EEG recorded with 32 input channels reviewed with bipolar and referential montages using the modified combinatorial system nomenclature.DESCRIPTION OF RECORD: Neither a posterior dominant rhythm [...] from 3-21 Hz; no photic driving was seen ; photoparoxysmal responses were absent.IMPRESSION: Abnormal EEG due to: 1. Diffuse delta and theta background slowing, unreactive 2. Excessive beta activity CLINICAL CORRELATION: The diffuse slowing in this record isconsistent with a severe degree of encephalopathy. The excessive beta activity is likely related to medications, thus the degree of encephalopathy in the record may be in part due to pharmacological sedation. An EEG without epileptiform discharges does not exclude the possibility of epilepsy. If the clinical suspicion of epilepsy remains, consider additional EEG recordings.Aixa Reis M.D.Neurophysiology FellowAttending note:I personally reviewed this EEG record in its entirety and I agree with the details of this report.Phoebe Villar MDEpilepsy Attending HEPATIC FUNCTION [id number] 12:59:00 Test Item Value Reference Range Comments TOTAL PROTEIN (BEAKER) (test 8.0 gm/dL 6.0-8.3 Specimen moderately hemolyzed lkdt=557) ALBUMIN (BEAKER) (test 3.8 g/dL 3.5-5.0 Specimen moderately hemolyzed qugq=1985) BILIRUBIN TOTAL (BEAKER) (test 0.3 mg/dL 0.2-1.2 Specimen moderately hemolyzed erzl=984) BILIRUBIN DIRECT (BEAKER) 0.1 mg/dL 0.1-0.5 Specimen moderately hemolyzed (test hgpy=124) ALKALINE PHOSPHATASE (BEAKER) 79 U/L 40-150 (test pall=561) AST (SGOT) (BEAKER) (test 34 U/L 5-34 Specimen moderately hemolyzed egfn=892) ALT (SGPT) (BEAKER) (test 30 U/L 6-55 Specimen moderately doxh=401) hemolyzed RAD, CHEST, 1 VIEW, NON [id number] 09:16:00Reason for exam:-> intubatedShould this be performed at the bedside?->YesFINAL REPORT Chest two views AP 04/16/2017 9:15 AM CLINICAL INDICATION: intubated COMPARISON: None available IMPRESSION: Support hardware is in satisfactory radiographic position. Cardiomediastinal contours are within normal limits. There is central pulmonary vasculature congestion without remarkable peripheral edema. There are streaky foci of atelectasis bilaterally. Superimposed pneumonia should be excluded clinically. Signed: Rogerio Hernandez Verified Date/Time: 04/16/2017 09:16:32 Reading Location: [facility] Radiology Reading Room VITAMIN [id number] 07:31:00 Test Item Value Reference Range Comments VITAMIN B12 (BEAKER) (test abbv=535) 450 pg/mL 213-816 FOLATE, [id number] 07:31:00 Test Item Value Reference Range Comments FOLATE (BEAKER) (test qnkq=593) 8.0 ng/mL >=7.0 URINALYSIS W/ [id number] 07:09:00 Test Item Value Reference Range Comments COLOR (BEAKER) (test mfgv=808) Light Yellow CLARITY (BEAKER) (test mdgo=395) Hazy SPECIFIC GRAVITY UA (BEAKER) (test eagc=951) 1.008 1.001-1.035 PH UA (BEAKER) (test ckpj=836) 6.0 5.0-8.0 PROTEIN UA (BEAKER) (test oyda=868) 20 mg/dL Negative GLUCOSE UA (BEAKER) (test bsfx=710) 200 mg/dL Negative KETONES UA (BEAKER) (test lhst=664) Negative Negative BILIRUBIN UA (BEAKER) (test ttmy=608) Negative Negative BLOOD UA (BEAKER) (test ahby=597) Negative Negative NITRITE UA (BEAKER) (test endf=793) Negative Negative LEUKOCYTE ESTERASE UA (BEAKER) (test kacq=101) Negative Negative UROBILINOGEN UA (BEAKER) (test byki=703) 0.2 mg/dL 0.2-1.0 RBC UA (BEAKER) (test yvfd=375) < /HPF WBC UA (BEAKER) (test nccy=222) 1 /HPF BACTERIA (BEAKER) (test cmhy=899) Rare SQUAMOUS EPITHELIAL (BEAKER) (test uwqu=779) < /HPF HYALINE CASTS (BEAKER) (test qfcw=316) 8 /LPF SOURCE(BEAKER) (test nzlv=9162) [id number] 05:59:00 Test Item Value Reference Range Comments MAGNESIUM (BEAKER) (test 3.0 mg/dL 1.6-2.6 Specimen moderately hemolyzed gelw=398) [id number] 05:59:00 Test Item Value Reference Range Comments PHOSPHORUS (BEAKER) (test 3.0 mg/dL 2.3-4.7 Specimen moderately hemolyzed yrhm=735) BASIC METABOLIC [id number] 05:59:00 Test Item Value Reference Range Comments SODIUM (BEAKER) (test 137 meq/L 136-145 mwnr=318) POTASSIUM (BEAKER) (test 3.8 meq/L 3.5-5.1 Specimen moderately rybs=552) hemolyzed CHLORIDE (BEAKER) (test 99 meq/L 98-107 ahgn=405) CO2 (BEAKER) (test 23 meq/L 22-29 whgu=303) BLOOD UREA NITROGEN 14 mg/dL 7-21 (BEAKER) (test bwrs=328) CREATININE (BEAKER) (test 1.48 mg/dL 0.57-1.25 Specimen moderately uovi=877) hemolyzed GLUCOSE RANDOM (BEAKER) 386 mg/dL 70-105 (test raxb=188) CALCIUM (BEAKER) (test 8.0 mg/dL 8.4-10.2 nmqz=319) EGFR (BEAKER) (test 50 mL/min/1.73 sq m ESTIMATED GFR IS NOT gjkz=3410) ACCURATE CREATININE CLEARANCE IN PREDICTING GLOMERULAR FILTRATION RATE. ESTIMATED GFR IS NOT APPLICABLE FOR DIALYSIS PATIENTS. PROTHROMBIN [id number] 05:33:00 Test Item Value Reference Range Comments PROTIME (BEAKER) (test qhxs=837) 15.7 seconds 11.7-14.7 INR (BEAKER) (test gqhb=786) 1.3 <=5.9 RECOMMENDED COUMADIN/WARFARIN INR THERAPY RANGESSTANDARD DOSE: 2.0 - 3.0 Includes: PROPHYLAXIS forvenous thrombosis, systemic embolization; TREATMENT for venous thrombosis and/or pulmonary embolus.HIGH RISK: Target INR is 2.5-3.5 for patients with mechanical heart valves.BLOOD GAS, [id number] 05:31:00 Test Item Value Reference Range Comments PH ARTERIAL (BEAKER) (test jdze=284) 7.34 7.35-7.45 PCO2 ARTERIAL (BEAKER) (test zcsa=867) 43 mmHg 35-45 PO2 ARTERIAL (BEAKER) (test haqr=811) 123 mmHg 80-90 O2 SATURATION ARTERIAL (BEAKER) (test adgm=672) 98.2 % 96.0-97.0 HCO3 ARTERIAL (BEAKER) (test gvps=159) 22 mmol/L 21-29 BASE EXCESS ARTERIAL (BEAKER) (test wcnc=066) -3.2 mmol/L -2.0-3.0 PATIENT TEMPERATURE (BEAKER) (test ujfi=5805) 37.2 C FIO2 (BEAKER) (test kpxz=0856) 60.0 % CBC W/PLT COUNT & AUTO [id number] 05:08:00 Test Item Value Reference Range Comments WHITE BLOOD CELL COUNT (BEAKER) (test jxhr=472) 16.2 K/ L 3.5-10.5 RED BLOOD CELL COUNT (BEAKER) (test qshu=549) 4.53 M/ L 4.63-6.08 HEMOGLOBIN (BEAKER) (test elro=183) 14.9 GM/DL 13.7-17.5 HEMATOCRIT (BEAKER) (test ekhr=758) 43.7 % 40.1-51.0 MEAN CORPUSCULAR VOLUME (BEAKER) (test ihrz=218) 96.5 fL 79.0-92.2 MEAN CORPUSCULAR HEMOGLOBIN (BEAKER) (test 32.9 pg 25.7-32.2 lkqt=474) MEAN CORPUSCULAR HEMOGLOBIN CONC (BEAKER) (test 34.1 GM/DL 32.3-36.5 plos=255) RED CELL DISTRIBUTION WIDTH (BEAKER) (test 13.2 % 11.6-14.4 xiqw=879) PLATELET COUNT (BEAKER) (test bflb=945) 127 K/CU MM 150-450 MEAN PLATELET VOLUME (BEAKER) (test abnp=697) 10.0 fL 9.4-12.4 NUCLEATED RED BLOOD CELLS (BEAKER) (test 0 /100 WBC 0-0 xebc=661) NEUTROPHILS RELATIVE PERCENT (BEAKER) (test 84 % dnlw=491) LYMPHOCYTES RELATIVE PERCENT (BEAKER) (test 7 % nezz=430) MONOCYTES RELATIVE PERCENT (BEAKER) (test 9 % znkq=543) EOSINOPHILS RELATIVE PERCENT (BEAKER) (test 0 % jzhi=084) BASOPHILS RELATIVE PERCENT (BEAKER) (test 0 % mlko=477) NEUTROPHILS ABSOLUTE COUNT (BEAKER) (test 13.58 K/ L 1.78-5.38 dxgp=154) LYMPHOCYTES ABSOLUTE COUNT (BEAKER) (test 1.06 K/ L 1.32-3.57 buqu=656) MONOCYTES ABSOLUTE COUNT (BEAKER) (test 1.38 K/ L 0.30-0.82 dbef=794) EOSINOPHILS ABSOLUTE COUNT (BEAKER) (test 0.01 K/ L 0.04-0.54 hgbu=623) BASOPHILS ABSOLUTE COUNT (BEAKER) (test 0.02 K/ L 0.01-0.08 twwc=646) IMMATURE GRANULOCYTES-RELATIVE PERCENT (BEAKER) 1 % 0-1 (test etgc=7820)
[2017-11-10] MEDS ORDERED: PIPER/TAZO/NS 3.375gm 3.375 GM/100 ML BAG ONE (21:11)
[2017-11-10] MEDS ORDERED: NA CHLORIDE 0.9% 1,000 ML ONE (21:11)
[2017-11-10] MEDS ORDERED: VANCOMYCIN 1 GM/250 ML BAG ONE (21:11)
[2017-11-10 21:23] LABS: RBC Red Blood Cell Count 4.42 M/uL (4.33-5.43)
[2017-11-10 21:26] LABS: Absolute Lymphocytes (CBC) 1.8 K/uL (0.7-4.9); Absolute Monocytes 1.5 K/uL (0.1-1.3); Absolute Neutrophil 17.5 K/uL (1.8-8.0); Basophils % 0.3 % (0-1.3); Eosinophils % 0.1 % (0-4.4); Lymphocytes % 8.8 % (15.3-44.8); MCH 33.3 pg (27.0-35.0); MPV 8.2 fL (7.6-11.3); Monocytes % 7.3 % (3.3-12.3)
[2017-11-10] MEDS ORDERED: ONDANSETRON 4 MG/2 ML VIAL ONE (21:30)
[2017-11-10] MEDS ORDERED: FENTANYL CITR 100 MCG/2 ML ONE (21:30)
--- NOTE | 2017-11-10 21:35 | RAD REPORT ---
EXAM DESCRIPTION: RAD - Foot Left 3 View - 11/10/2017 9:27 pm CLINICAL HISTORY: Left Foot pain FINDINGS: No fracture or dislocation is seen. Pes planus and hammertoe deformities are noted. Arthritis involves talonavicular joint. Osteophytes and subchondral cysts are present within the firs t MTP joint. Mild lateral subluxation of the first proximal phalanx is seen. The bones are osteoporotic. Ulceration involves the soft tissues of the first phalanx in the region of the first IP joint. No und erlying bony destructive lesion is noted.
[2017-11-10 21:47] LABS: Blood Morphology Comment NOT SEEN (NOT SEEN); Platelet Estimate ADEQ; Toxic Granulation 1+
[2017-11-10 21:55] LABS: Albumin 3.8 g/dL (3.2-5.5); Bilirubin Total 0.7 mg/dL (0.3-1.2); C-Reactive Protein 179.8 mg/L (<10.0); Protein, Total 8.1 g/dL (6.0-8.3)
[2017-11-10 22:04] LABS: Potassium 2.8 mEq/L (3.6-5.0)
--- NOTE | 2017-11-10 23:16 | ER ---
Nurse's Notes [facility] Name: Karlos Lelbanc Age: 51 yrs Sex: Male : 1965 Arrival Date: 11/10/2017 Time: 20:10 Bed 24 Private MD: Diagnosis: Cellulitis of the foot Presentation: 11/10 20:41 Presenting complaint: Patient states: he had a new air of shoes that gave him what he kr2 calls "[employer] foot". States the shoes caused his feet to trap a lot of moisture and he developed sores on his left foot a couple of weeks ago. He just recently noticed his toe changed colors to a black and red and he has streaking going up his leg. Transition of care: patient was not received from another setting of care. Onset of symptoms is unknown. Risk Assessment: Do you want to hurt yourself or someone else? Patient reports no desire to harm self or others. Initial Sepsis Screen: Does the patient meet any 2 criteria? No. Patient's initial sepsis screen is negative. Does the patient have a suspected source of infection? No. Patient's initial sepsis screen is negative. Care prior to arrival: None. 20:41 Method Of Arrival: Ambulatory kr2 20:41 Acuity: KENIA 3 kr2 Triage Assessment: 20:45 General: Appears in no apparent distress. uncomfortable, unkempt, well developed, well kr2 nourished, Behavior is calm, cooperative, appropriate for age. Pain: Complains of pain in left foot Pain currently is 7 out of 10 on a pain scale. Quality of pain is described as aching, tender, throbbing, Is continuous, Alleviated by nothing. Aggravated by increased activity, weight bearing. Historical: - Allergies: 23:48 Morphine; kr2 - Home Meds: 23:48 alprazolam 2 mg Oral tab 1 tab twice a day [Active]; amlodipine 10 mg tab 1 tab once kr2 daily [Active]; atorvastatin 40 mg Oral tab 1 tab once daily [Active]; diclofenac sodium 75 mg Oral TbEC 1 tab 2 times per day [Active]; gabapentin 300 mg Oral cap 1 cap twice a day [Active]; Lasix 20 mg Oral tab 1 tab once daily [Active]; lisinopril 10 mg Oral tab 1 tab once daily [Active]; metoprolol tartrate 100 mg Oral tab 1 tab 2 times per day [Active]; [place] 10-325 mg Oral tab 1 tab [Active]; Pletal 100 mg Oral tab 1 tab 2 times per day [Active]; Tylenol-Codeine #3 300- 60 mg Oral 1 tab twice a day for Pain [Active]; umeclidinium/vilanterol [Active]; - PMHx: 23:48 CHF; COPD; CVA; Seizures; Myocardial infarction; kr2 - PSHx: 23:48 amputation of toes to right foot; kr2 - Immunization history:: Adult Immunizations up to date. - Social history:: Smoking status: Patient uses tobacco products, smokes one pack cigarettes per day. - Ebola Screening: : No symptoms or risks identified at this time. Screenin:44 Abuse screen: Denies threats or abuse. Denies injuries from another. Nutritional kr2 screening: No deficits noted. Tuberculosis screening: No symptoms or risk factors identified. Fall Risk None identified. Assessment: 20:30 General: Appears in no apparent distress. uncomfortable, well groomed, well developed, kr2 well nourished, Behavior is calm, cooperative, appropriate for age. Pain: Complains of pain in left foot Pain does not radiate. Pain currently is 7 out of 10 on a pain scale. Quality of pain is described as aching, tender, throbbing, Is continuous, Alleviated by nothing. Aggravated by increased activity, weight bearing. Neuro: Level of Consciousness is awake, alert, obeys commands, Oriented to person, place, time, situation, Appropriate for age Intact. Cardiovascular: Capillary refill < 3 seconds in bilateral fingers Patient's skin is warm and dry. Respiratory: Airway is patent Respiratory effort is even, unlabored, Respiratory pattern is regular, symmetrical. GI: Abdomen is round non-distended. : No signs and/or symptoms were reported regarding the genitourinary system. EENT: Oral mucosa is moist. Derm: Skin with poor turgor Skin is pink, warm \\T\\ dry. Wound noted left foot Wound is on bottom of foot and wound bed is black, small amount of yellow-green, foul smelling drainage. Great toe is purple and foot is red with streaking up inner aspect of left leg up to thigh level. Musculoskeletal: Amputation of patient reports it was the result of an infection of a wound on his foot Circulation, motion, and sensation intact. 21:45 Reassessment: Patient appears in no apparent distress at this time. Patient and/or kr2 family updated on plan of care and expected duration. Pain level reassessed. Patient is alert, oriented x 3, equal unlabored respirations, skin warm/dry/pink. 22:30 Reassessment: Patient appears in no apparent distress at this time. Patient and/or kr2 family updated on plan of care and expected duration. Pain level reassessed. Patient is alert, oriented x 3, equal unlabored respirations, skin warm/dry/pink. 23:36 Reassessment: Patient appears in no apparent distress at this time. Patient and/or kr2 family updated on plan of care and expected duration. Pain level reassessed. Patient is alert, oriented x 3, equal unlabored respirations, skin warm/dry/pink. 23:57 Reassessment: Patient appears in no apparent distress at this time. Patient and/or kr2 family updated on plan of care and expected duration. Pain level reassessed. Patient is alert, oriented x 3, equal unlabored respirations, skin warm/dry/pink. Complains of pain to left foot 12/04. Provider notified. Orders received for Fentanyl, see JUL. 11/11 00:55 Reassessment: Patient appears in no apparent distress at this time. Patient and/or kr2 family updated on plan of care and expected duration. Pain level reassessed. Patient is alert, oriented x 3, equal unlabored respirations, skin warm/dry/pink. 00:55 Reassessment: Report called to Daphne Herrera. [facility] Vital Signs: 11/10 20:46 BP 139 / 82; Pulse 89; Resp 18; Temp 98.6; Pulse Ox 97% on R/A; Weight 99.79 kg; Height kr2 6 ft. 1 in. (185.42 cm); Pain 12/04; 21:19 BP 142 / 79; Pulse 94; Resp 16; Pulse Ox 99% on R/A; kr2 21:39 BP 106 / 79; Pulse 94; Resp 17; Pulse Ox 100% on R/A; kr2 22:30 BP 150 / 78; Pulse 96; Resp 17; Pulse Ox 99% on R/A; kr2 23:39 BP 132 / 88; Pulse 93; Resp 16; Pulse Ox 99% on R/A; kr2 11/11 00:55 BP 131 / 74; Pulse 84; Resp 17; Pulse Ox 95% on R/A; kr2 11/10 20:46 Body Mass Index 29.03 (99.79 kg, 185.42 cm) kr2 ED Course: 11/10 20:10 Patient arrived in ED. es 20:34 [facility] jmm 20:34 Aaron Pichardo MD is Attending Physician. jmm 20:41 Christine Leggett, TAVO is Primary Nurse. kr2 20:44 Triage completed. kr2 20:45 Arm band placed on. kr2 20:46 Patient has correct armband on for positive identification. Bed in low position. Call kr2 light in reach. Side rails up X 1. Pulse ox on. NIBP on. Door closed. Warm blanket given. Head of bed elevated. 21:02 Missed attempt(s): 22 gauge in left forearm. Bleeding controlled, band aid applied, kr2 catheter tip intact. 21:05 Inserted saline lock: 22 gauge in left forearm, using aseptic technique. Blood kr2 collected. 21:28 Foot Left 3 View In Process Unspecified. EDMS 22:04 Notified Nurse Practitioner and/or Physician Retail Advertising Executive of a critical lab result(s), bb POTASSIUM OF 2.8 J. JAE BACA NOTIFIED. 22:49 Ultrasound completed. Patient tolerated well. Notified VISUAL MERCHANDISING SPECIALIST/PA susan. sg3 23:14 Huy Glass MD is Hospitalizing Provider. jm 23:16 [facility] [employer] [facility] In Process Unspecified. EDMS 11/11 00:56 No provider procedures requiring assistance completed. Patient admitted, IV remains in kr2 place. Administered Medications: 11/10 21:18 Drug: NS 0.9% 1000 ml Route: IV; Rate: 1 bolus; Site: left antecubital; ao 23:13 Follow up: Response: No adverse reaction; IV Status: Completed infusion kr2 21:18 Drug: vancoMYCIN 1 grams Route: IVPB; Infused Over: 2 hrs; Site: left forearm; kr2 23:13 Follow up: Response: No adverse reaction; IV Status: Completed infusion kr2 21:44 Drug: Zofran 4 mg Route: IVP; Site: left forearm; kr2 21:53 Follow up: Response: No adverse reaction kr2 21:45 Drug: fentaNYL (PF) 50 mcg Route: IVP; Site: left forearm; kr2 21:53 Follow up: Response: No adverse reaction; Pain is decreased kr2 23:13 Drug: Zosyn 3.375 grams Route: IVPB; Infused Over: 60 mins; Site: left forearm; kr2 23:58 Follow up: Response: No adverse reaction; IV Status: Completed infusion kr2 23:58 Drug: fentaNYL (PF) 50 mcg Route: IVP; Site: left forearm; kr2 Outcome: 23:15 Decision to Hospitalize by Provider. nirmal 11/11 00:56 Admitted to Med/surg accompanied by tech, via wheelchair, room 204, with chart, Report kr2 called to Daphne Herrera Condition: stable 01:43 Patient left the ED. ao Signatures: Dispatcher [employer] EDAK Susan Payne PA PA jmm Salyer, Edna es Ballard, Brenda, RN RN bb Apolinar Reza RN RN Christine Kelly RN RN kr2 Leonila De sg3 Corrections: (The following items were deleted from the chart) 11/10 21:42 21:41 No provider procedures requiring assistance completed. kr2 kr2 21:42 21:41 Patient did not have IV access during this emergency room visit. kr2 kr2 21:42 21:41 Condition: good kr2 kr2 21:42 21:41 Discharged to home ambulatory, with family, kr2 kr2 21:42 21:41 Discharge instructions given to patient, Instructed on discharge instructions, kr2 follow up and referral plans. medication usage, Demonstrated understanding of instructions, follow-up care, medications, Prescriptions given X 1, kr2 21:45 21:41 Reassessment: Patient appears in no apparent distress at this time. Patient kr2 and/or family updated on plan of care and expected duration. Pain level reassessed. Patient is alert, oriented x 3, equal unlabored respirations, skin warm/dry/pink. Patient denies pain at this time. kr2 21:46 21:39 BP 121 / 79; Pulse 57bpm; Resp 16bpm; Pulse Ox 100% RA; kr2 kr2 21:53 21:18 Zosyn 3.375 grams IVPB in left antecubital over 60 mins ao kr2 21:54 21:53 Response: No adverse reaction; Pain is decreased kr2 kr2
--- NOTE | 2017-11-10 23:16 | EDPHYS ---
Physician Documentation [facility] Name: Karlos Leblanc Age: 51 yrs Sex: Male : 1965 Arrival Date: 11/10/2017 Time: 20:10 Bed 24 Private MD: ED Physician Aaron Pichardo HPI: 11/10 20:42 This 51 yrs old Male presents to ER via Ambulatory with complaints of jmm INFECTION IN FOOT. 20:42 The patient presents with pain, that is acute, swelling. The complaints affect the jmm instep of left foot, dorsum of left foot, left first toe and medial aspect of left toes. Onset: The symptoms/episode began/occurred gradually, 1.5 week(s) ago. Modifying factors: The symptoms are alleviated by nothing, the symptoms are aggravated by nothing. Associated signs and symptoms: Pertinent positives: chills. This is a 51 year old male with a history of CHF, COPD, CAD that presents to the ED with pain, swelling, and redness to the left foot. Patient has history of toe amputation to the right foot. Patient admits to chills.. Historical: - Allergies: 23:48 Morphine; kr2 - Home Meds: 23:48 alprazolam 2 mg Oral tab 1 tab twice a day [Active]; amlodipine 10 mg tab 1 tab once kr2 daily [Active]; atorvastatin 40 mg Oral tab 1 tab once daily [Active]; diclofenac sodium 75 mg Oral TbEC 1 tab 2 times per day [Active]; gabapentin 300 mg Oral cap 1 cap twice a day [Active]; Lasix 20 mg Oral tab 1 tab once daily [Active]; lisinopril 10 mg Oral tab 1 tab once daily [Active]; metoprolol tartrate 100 mg Oral tab 1 tab 2 times per day [Active]; [place] 10-325 mg Oral tab 1 tab [Active]; Pletal 100 mg Oral tab 1 tab 2 times per day [Active]; Tylenol-Codeine #3 300- 60 mg Oral 1 tab twice a day for Pain [Active]; umeclidinium/vilanterol [Active]; - PMHx: 23:48 CHF; COPD; CVA; Seizures; Myocardial infarction; kr2 - PSHx: 23:48 amputation of toes to right foot; kr2 - Immunization history:: Adult Immunizations up to date. - Social history:: Smoking status: Patient uses tobacco products, smokes one pack cigarettes per day. - Ebola Screening: : No symptoms or risks identified at this time. ROS: 20:42 Eyes: Negative for injury, pain, redness, and discharge, Cardiovascular: Negative for jmm chest pain, palpitations, and edema, Respiratory: Negative for shortness of breath, cough, wheezing, and pleuritic chest pain, Abdomen/GI: Negative for abdominal pain, nausea, vomiting, diarrhea, and constipation. 20:42 Constitutional: Positive for chills. 20:42 MS/extremity: Positive for pain. 20:42 Skin: Positive for erythema. 20:42 Neuro: Negative for weakness. 20:42 Psych: 20:42 All other systems are negative. Exam: 20:42 Head/Face: atraumatic. Chest/axilla: Normal chest wall appearance and motion. jmm Nontender with no deformity. No lesions are appreciated. Cardiovascular: Regular rate and rhythm. No gallops, murmurs, or rubs. Full/Equal distal pulses. Respiratory: Lungs have equal breath sounds bilaterally, clear to auscultation. No rales, rhonchi or wheezes noted. No increased work of breathing, no retractions or nasal flaring. Abdomen/GI: Soft, non-tender, with normal bowel sounds. No distension or tympany. No guarding or rebound. No evidence of tenderness throughout. Back: No spinal tenderness. No costovertebral tenderness. Full range of motion. 20:42 Constitutional: The patient appears in no acute distress, alert, awake. 20:42 Musculoskeletal/extremity: erythema noted to the left foot, dorsalis pedis pulse appreciated, NVI. 20:42 Skin: erythema noted to the left foot with ecchymosis along the lateral surface of the great toe. 20:42 Neuro: Orientation: is normal, Mentation: is normal, Memory: is normal. 20:42 Psych: Behavior/mood is pleasant, cooperative. Vital Signs: 20:46 BP 139 / 82; Pulse 89; Resp 18; Temp 98.6; Pulse Ox 97% on R/A; Weight 99.79 kg; Height kr2 6 ft. 1 in. (185.42 cm); Pain 7/10; 21:19 BP 142 / 79; Pulse 94; Resp 16; Pulse Ox 99% on R/A; kr2 21:39 BP 106 / 79; Pulse 94; Resp 17; Pulse Ox 100% on R/A; kr2 22:30 BP 150 / 78; Pulse 96; Resp 17; Pulse Ox 99% on R/A; kr2 23:39 BP 132 / 88; Pulse 93; Resp 16; Pulse Ox 99% on R/A; 2 11/11 00:55 BP 131 / 74; Pulse 84; Resp 17; Pulse Ox 95% on R/A; 2 11/10 20:46 Body Mass Index 29.03 (99.79 kg, 185.42 cm) [facility] MDM: 11/10 20:42 Patient medically screened. [facility] 23:14 Data reviewed: vital signs, nurses notes, lab test result(s), radiologic studies, plain [facility] films, ultrasound. Counseling: I had a detailed discussion with the patient and/or guardian regarding: the historical points, exam findings, and any diagnostic results supporting the discharge/admit diagnosis, lab results, radiology results, the need for further work-up and treatment in the hospital. Physician consultation: Krish Burroughs MD. Physician consultation: Huy Glass MD and will see patient in ED. 11/10 20:52 Order name: CBC with Manual Differential; Complete Time: 21:49 [facility] 11/10 20:52 Order name: CMP; Complete Time: 22:15 [facility] 11/10 20:52 Order name: Lactate; Complete Time: 21:39 [facility] 11/10 20:52 Order name: Procalcitonin; Complete Time: 21:58 [facility] 11/10 20:52 Order name: Blood Culture Adult (2) [facility] 11/10 20:52 Order name: ESR; Complete Time: 21:49 [facility] 11/10 20:52 Order name: CRP; Complete Time: 22:15 [facility] 11/10 21:23 Order name: Foot Left 3 View; Complete Time: 21:39 [facility] 11/10 21:58 Order name: LE [facility] Administered Medications: 21:18 Drug: NS 0.9% 1000 ml Route: IV; Rate: 1 bolus; Site: left antecubital; ao 23:13 Follow up: Response: No adverse reaction; IV Status: Completed infusion [facility] 21:18 Drug: vancoMYCIN 1 grams Route: IVPB; Infused Over: 2 hrs; Site: left forearm; kr2 23:13 Follow up: Response: No adverse reaction; IV Status: Completed infusion kr2 21:44 Drug: Zofran 4 mg Route: IVP; Site: left forearm; kr2 21:53 Follow up: Response: No adverse reaction kr2 21:45 Drug: fentaNYL (PF) 50 mcg Route: IVP; Site: left forearm; kr2 21:53 Follow up: Response: No adverse reaction; Pain is decreased kr2 23:13 Drug: Zosyn 3.375 grams Route: IVPB; Infused Over: 60 mins; Site: left forearm; kr2 23:58 Follow up: Response: No adverse reaction; IV Status: Completed infusion kr2 23:58 Drug: fentaNYL (PF) 50 mcg Route: IVP; Site: left forearm; kr2 Disposition: 11/10/17 23:15 Hospitalization ordered by Huy Glass for Inpatient Admission. Preliminary diagnosis is Cellulitis of the foot. - Bed requested for Telemetry/MedSurg (Inpatient). - Status is Inpatient Admission. ao - Condition is Stable. - Problem is new. - Symptoms are unchanged. UTI on Admission? No Addendum: 11/12/2017 09:58 Co-signature as Attending Physician, Aaron Pichardo MD I agree with the assessment and c gutiérrez plan of care. Signatures: Dispatcher [employer] [facility] Tara Cabral RN RN kl Anderson, Corey, MD MD cha Mickail, Joel, PA PA Apolinar Mendes RN RN ao Reaves, Karey, RN RN kr2 Botello, Elizabeth eb Corrections: (The following items were deleted from the chart) 11/10 21:23 20:53 Foot Right 3 View+RAD.RAD.BRZ ordered. [facility] 11/11 00:05 11/10 23:15 Hospitalization Ordered by Huy Glass MD for Inpatient Admission. eb Preliminary diagnosis is Cellulitis of the foot. Bed requested for Telemetry/MedSurg (Inpatient). Status is Inpatient Admission. Condition is Stable. Problem is new. Symptoms are unchanged. UTI on Admission? No. [facility] 11/11 00:33 00:05 11/10/2017 23:15 Hospitalization Ordered by Huy Glass MD for Inpatient kl Admission. Preliminary diagnosis is Cellulitis of the foot. Bed requested for Telemetry/MedSurg (Inpatient). Status is Inpatient Admission. Condition is Stable. Problem is new. Symptoms are unchanged. UTI on Admission? No. eb 01:03 11/10 20:42 This is a 51 year old male with a history of CHF, COPD, CAD that presents [facility] to the ED with pain, swelling, and redness to the left foot. Patient has history of toe amputation to the right foot. Patient admits to chills denies measured subjective fever. . [facility] 11/11 01:43 00:33 11/10/2017 23:15 Hospitalization Ordered by Huy Glass MD for Inpatient ao Admission. Preliminary diagnosis is Cellulitis of the foot. Bed requested for Telemetry/MedSurg (Inpatient). Status is Inpatient Admission. Condition is Stable. Problem is new. Symptoms are unchanged. UTI on Admission? No. kl
--- NOTE | 2017-11-10 23:56 | P.HP ---
Certification for Inpatient Patient admitted to: Inpatient With expected LOS: >2 Midnights Practitioner: I am a practitioner with admitting privileges, knowledge of patient current condition, hospital course, and medical plan of care. Services: Services provided to patient in accordance with Admission requirements found in Title 42 Section 412.3 of the Code of Federal Regulations Patient History Date of Service: 11/10/17 Reason for admission: cellulitis/gangrene History of Present Illness: Mr Leblanc is a 51 years old male with history of PVD, osteomyelitis, CKD, S/P right foot amputation, tobacco abuse, who start about 1 week ago with a lesion on the posterior aspect of first toe on his left foot. He states that the wound got worse today, turning to black descoloration. He has an ulcerative lesion with a black escar. No history o fever, but has had chills. Lab work remarkable for Leukocytosis, with normal lactate and procalcitonin. No fever at presentation. Allergies morphine Allergy (Mild, Verified 01/25/17 09:14) Headaches No Known Drug Allergies Allergy (Uncoded 07/27/16 10:55) Unknown Home Medications: Amlodipine Besylate 10 mg PO DAILY 03/13/17 Furosemide 20 mg PO DAILY 03/13/17 - Past Medical/Surgical History Diabetic: No -: HTN -: CHF, diastolic dysfunction -: COPD -: CAD -: Alcohol withdrawal seizure -: Right metatarsal amputation -: History of osteomyelitis -: IV drug use -: Alcohol abuse -: Tobacco abuse -: Rt great toe & 2nd toe amputated-Dec 2015 Psychosocial/ Personal History: Unable to be obtained - Family History Family History: Reviewed- Non-Contributory - Social History Smoking Status: Current every day smoker Counseled patient to stop smoking for: less than 10 minutes Smoking therapy provided: Yes Patient receptive to therapy: Yes Alcohol use: Yes CD- Drugs: No Caffeine use: Yes Place of Residence: Home Review of Systems 10-point ROS is otherwise unremarkable Physical Examination - Physical Exam General: Alert, In no apparent distress HEENT: Atraumatic, PERRLA, Mucous membr. moist/pink, EOMI, Sclerae nonicteric Neck: Supple, 2+ carotid pulse no bruit, No LAD, Without JVD or thyroid abnormality Respiratory: Clear to auscultation bilaterally, Diminished Cardiovascular: Regular rate/rhythm, Normal S1 S2 Gastrointestinal: Normal bowel sounds, No tenderness Musculoskeletal: No tenderness Integumentary: Skin lesion, Tenderness/swelling, Other (black escar on his first metatarsal area of his left foot.) Neurological: Normal speech, Normal strength at 5/5 x4 extr, Normal tone, Normal affect Lymphatics: No axilla or inguinal lymphadenopathy - Studies Laboratory Data (last 24 hrs) 11/10/17 21:05: Sodium 132 L, Potassium 2.8 L*, BUN 20, Creatinine 1.69 H, Glucose 115, Total Bilirubin 0.7, AST 25, ALT 29, Alkaline Phosphatase 62 11/10/17 21:05: WBC 21.0 H*, Hgb 14.7, Hct 42.0, Plt Count 211 Assessment and Plan - Problems (Diagnosis) (1) Cellulitis Current Visit: Yes Status: Acute Qualifiers: Site of cellulitis: extremity Site of cellulitis of extremity: lower extremity Laterality: left Qualified Code(s): L03.116 - Cellulitis of left lower limb (2) Gangrene Current Visit: Yes Status: Acute (3) Tobacco abuse Current Visit: No Status: Chronic - Plan The patient will be admitted to the hospital due to cellulitis/gangrene of his first toe on the left foot. Will start empiric treatment with IV Vancomycin and Zosyn. Will consult Dr Burroughs. Keep NPO after midnight for eventual surgical procedure. - Advance Directives Does patient have a Living Will: No Does patient have a Durable POA for Healthcare: No - Code Status/Comfort Care Code Status Assessed: Yes Code Status: Full Code
[2017-11-11] MEDS ORDERED: FENTANYL CITR 100 MCG/2 ML IV PRN (02:07)
[2017-11-11] MEDS ORDERED: ACETAMINOPHEN 500 MG TAB PO PRN (02:07)
[2017-11-11] MEDS ORDERED: ONDANSETRON 4 MG/2 ML VIAL IV PRN (02:07)
[2017-11-11] MEDS: NA CHLORIDE 0.9% 1,000 ML IV SCH ×3 (02:31→16:17)
[2017-11-11] MEDS ORDERED: PIPER/TAZO/NS 3.375gm 3.375 GM/100 ML BAG IVPB SCH (03:00)
[2017-11-11] MEDS ORDERED: VANCOMYCIN 0.75 GM in NA CHLORIDE 0.9% 250 ML IV ONE (03:00)
[2017-11-11] MEDS ORDERED: NA CHLORIDE 0.9% 250 ML ONE (03:01)
[2017-11-11] MEDS ORDERED: VANCOMYCIN 1 GM/VIAL ONE (03:01)
[2017-11-11] MEDS ORDERED: PIPER/TAZO/NS 3.375gm 3.375 GM/100 ML BAG ONE (03:02)
[2017-11-11 05:19] LABS: Absolute Lymphocytes (CBC) 1.6 K/uL (0.7-4.9); Absolute Monocytes 1.2 K/uL (0.1-1.3); Absolute Neutrophil 12.9 K/uL (1.8-8.0); Basophils % 0.5 % (0-1.3); Eosinophils % 0.3 % (0-4.4); Hematocrit 37.5 % (39.6-49.0); MCH 33.6 pg (27.0-35.0); MCV 94.9 fL (80-100); MPV 8.4 fL (7.6-11.3); Monocytes % 7.8 % (3.3-12.3); RBC Red Blood Cell Count 3.95 M/uL (4.33-5.43)
[2017-11-11 05:41] LABS: Potassium 3.2 mEq/L (3.6-5.0)
[2017-11-11] MEDS ORDERED: POTASSIUM 25 MEQ EFFERV TAB PO ONE ×2 (05:59→16:00)
[2017-11-11] MEDS: PIPER/TAZO/NS 3.375gm 3.375 GM/100 ML BAG IVPB SCH ×2 (08:27→16:30)
[2017-11-11] MEDS: NICOTINE 21 MG/PAT TD SCH (09:00)
[2017-11-11] MEDS ORDERED: COLLAGENASE 30 GM OINTMENT TOP ONE (10:47)
[2017-11-11] MEDS ORDERED: Ringers Lactate 1,000 ML IV ONE (10:48)
[2017-11-11] MEDS ORDERED: PROPOFOL 200 MG/20 ML VIAL IV ONE (10:49)
[2017-11-11] MEDS ORDERED: FENTANYL CITR 100 MCG/2 ML ONE ×2 (10:49→11:16)
[2017-11-11] MEDS ORDERED: IPRATROPIUM BROM 0.5MG/2.5ML NEB PRN (10:55)
--- NOTE | 2017-11-11 10:59 | P.PN ---
Subjective Date of Service: 11/11/17 Chief Complaint: cellulitis/gangrene Subjective: Worsening (Patient's lack complaining of discoloration pain swelling of the left foot is a necrotizing infection) Review of Systems General: Weakness Musculoskeletal: Foot Pain Integumentary: Other, As per HPI Physical Examination - Vital Signs Temperature: 98.7 F Blood Pressure: 123/67 Pulse: 81 Respirations: 20 Pulse Ox (%): 98 - Physical Exam General: Alert, Cooperative, Severe distress Neck: Supple Respiratory: Clear to auscultation bilaterally Cardiovascular: No edema, Regular rate/rhythm - Studies Laboratory Data (last 24 hrs) 11/10/17 21:05: Sodium 132 L, Potassium 2.8 L*, BUN 20, Creatinine 1.69 H, Glucose 115, Total Bilirubin 0.7, AST 25, ALT 29, Alkaline Phosphatase 62 11/10/17 21:05: WBC 21.0 H*, Hgb 14.7, Hct 42.0, Plt Count 211 Assessment & Plan - Problems (Diagnosis) (1) Necrotizing subcutaneous infection Current Visit: Yes Status: Acute Plan: Patient is 51 years of age admitted with necrotizing infection of his left foot he is to be gangrenous seen by Dr. Hampton now scheduled to have surgery today continue with vancomycin and Zosyn and pain relief these OD had amputation of the limb right foot will continues to smoke has COPD takes net labs reviewed white count elevated he also drinks on a daily basis patient is also hypokalemic may be a side effect of the Lasix Plan to discharge in: 72 Hours
[2017-11-11] MEDS ORDERED: DEXAMETHASONE 10 MG/ML VIAL ONE (11:18)
[2017-11-11] MEDS ORDERED: ONDANSETRON HCL 40 MG/20 ML VIAL ONE (11:18)
[2017-11-11] MEDS ORDERED: KETOROLAC 30 MG/ML INJ ONE (11:19)
--- NOTE | 2017-11-11 11:30 | P.OP ---
Preoperative diagnosis: Gangrene and cellulitis left great toe, severe PVD Postoperative diagnosis: same Primary procedure: L first toe T-M amputation Anesthesia: gen Estimated blood loss: min Specimen: l first toe Findings: as above Complications: None Transferred to: Recovery Room Condition: Good
[2017-11-11] MEDS ORDERED: MEPERIDINE HCL 25 MG/0.5 ML ONE (11:56)
--- NOTE | 2017-11-11 12:40 | RAD REPORT ---
EXAM DESCRIPTION: VAS - Lower Extremity Artery Uni Ltd - 11/10/2017 11:16 pm CLINICAL HISTORY: PAIN Claudication. 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 The proximal left SFA is monophasic with spectral broadening and peak systolic velocity 117 cm/second . All distal left lower extremity artery show similar monophasic waveforms with spectral broadening a nd decreased PSV. Multifocal multisegmental atherosclerosis is present. IMPRESSION: Significant change in peak systolic velocity and Doppler waveform from the left common f emoral artery to the left superficial femoral artery is seen as described, suggesting a treatable les ion may be present in this location.
--- NOTE | 2017-11-11 13:35 | OP ---
Date of Procedure: 11/11/2017 Surgeon: Krish Burroughs MD Preoperative Diagnosis: Gangrenous and cellulitis, left great toe. Postoperative Diagnosis: Gangrenous and cellulitis, left great toe. Procedure: Left transmetatarsal first toe amputation. Estimated Blood Loss: Minimal. Specimen: Left great toe and transmetatarsal head. Findings: As above. Anesthesia: General. Complications: None. Disposition: The patient tolerated the procedure in stable condition and taken to Recovery in good g eneral condition. Procedure In Detail: The patient was brought to the OR and placed in supine position. General anest hesia begun. The patient was prepped and draped in usual sterile fashion. Marcaine 0.5% was infiltr ated locally for postop pain control. Then, sharp dissection was proceeded, which performed around t he gangrenous part to the midfoot medially and then in the first web space. Toward the great toe and to include the ulcer on the posterior aspect, subcutaneous tissue was divided. All structures divid ed with cautery and then the toe removed and metatarsal head identified. Bone cautery was used to di vide that and then sent to Pathology as specimen. Wound irrigated. Bleeding controlled with cautery . Wet-to-dry normal saline dressing change applied. The patient tolerated the procedure in stable condition and taken to the Recovery in good g eneral condition. /MODL Voice ID: [id number] Report ID: [id number]
--- NOTE | 2017-11-11 13:44 | PREOPCON ---
Reason For Consultation: Cellulitis and gangrene, left great toe. History Of Present Illness: The patient is a 51-year-old gentleman with multiple medical problems, w payal states about a week ago he had a new shoe that he is wearing caused an ulcer on the posterior aspe ct of his first toe, and yesterday and the day before turned to black with the entire toe with increa sing redness, swelling, fever, and increasing pain. Please note, he has had all of his toes amputate d on the right foot for similar issues. I am managing this patient for a long time with regard to hi s right foot in the past and all the wounds on that side had healed up. He does have peripheral vasc ular disease as well. No sore throat, runny nose, cough, headaches, or dizziness. No chest pain. Review of Systems: Otherwise unremarkable. Past Medical History: Significant for hypertension, CHF, COPD, coronary artery disease, history of a lcohol withdrawal seizure, history of osteomyelitis, IV drug abuse, tobacco abuse. Past Surgical History: All of his toes on his right foot have been amputated. Allergies: INCLUDE MORPHINE. Social History: He does smoke, he was counseled by the primary care physician. He does drink occasi onally. Family History: Noncontributory. Physical Examination: Vital Signs: T-max is 100.1, currently afebrile. Vital signs are stable. General: He is awake, alert, and oriented x3. Head and Neck: Cranial nerves 2 through 12 grossly within normal limits. No neck masses. No JVD. Throat clear. Neck is supple. Chest: Clear. Heart: S1, S2. Abdomen: Soft. Extremities: Markedly diminished popliteal dorsalis pedis and posterior tibial pulses on both sides. On the left foot, there is gangrene on the left entire toe extending towards the medial foot. Ther e is erythema, warmth, and edema extending up the foot towards the lower lateral left leg. Laboratory Data: His white count on admission was 21,000 with left shift and sed rate was 80. His w tracy count today is 15.8. Chemistry reviewed. Potassium was 2.9, it is up to 3.2. Procalcitonin is 0.27. Lactic acid is 13.3. Foot x-ray reviewed and the Doppler study reviewed with Dr. Moura [facility] shows probably a blockage in the distal left common femoral artery and he will need evaluation by the Cardiology Department to see if he is accounted for an intervention. Assessment: Left foot gangrene with cellulitis of the great toe with severe peripheral vascular dise ase. Recommendations: The patient needs toe amputation transmetatarsal of the first toe. He understands risks, benefits, and alternatives and agrees to procedure. Continue IV antibiotics and will need Car diology evaluation for his peripheral vascular disease. /MODL Voice ID: [id number] Report ID: [id number]
[2017-11-11] MEDS: HYDROCODONE/APAP 7.5/325 MG TAB PO PRN ×3 (13:45→22:33)
[2017-11-11] MEDS: MORPHINE 4 MG/ML SYR IV PRN ×2 (16:17→20:27)
[2017-11-11] MEDS: VANCOMYCIN 1.75 GM in NA CHLORIDE 0.9% 500 ML IVPB SCH (20:26)
[2017-11-12] MEDS: PIPER/TAZO/NS 3.375gm 3.375 GM/100 ML BAG IVPB SCH ×3 (00:11→18:02)
[2017-11-12] MEDS: MORPHINE 4 MG/ML SYR IV PRN ×2 (00:47→05:11)
[2017-11-12] MEDS: HYDROCODONE/APAP 7.5/325 MG TAB PO PRN ×4 (02:45→19:23)
[2017-11-12] MEDS ORDERED: VANCOMYCIN 1.75 GM in NA CHLORIDE 0.9% 500 ML IVPB SCH (03:00)
[2017-11-12 05:14] LABS: Absolute Lymphocytes (CBC) 1.1 K/uL (0.7-4.9); Absolute Monocytes 0.6 K/uL (0.1-1.3); Absolute Neutrophil 15.7 K/uL (1.8-8.0); Basophils % 0.2 % (0-1.3); Hematocrit 39.1 % (39.6-49.0); Lymphocytes % 6.2 % (15.3-44.8); MCH 33.5 pg (27.0-35.0); MCV 96.9 fL (80-100); MPV 8.1 fL (7.6-11.3); Monocytes % 3.5 % (3.3-12.3); RBC Red Blood Cell Count 4.03 M/uL (4.33-5.43)
[2017-11-12 05:44] LABS: Phosphorus 2.4 mg/dL (2.5-4.3)
[2017-11-12 05:46] LABS: Potassium 2.8 mEq/L (3.6-5.0)
[2017-11-12] MEDS: KCL 20 MEQ/100 mL IVPB 20 MEQ/100 ML BAG IV SCH ×3 (08:00→10:00)
[2017-11-12] MEDS: NA CHLORIDE 0.9% 1,000 ML IV SCH ×3 (08:07→21:05)
[2017-11-12] MEDS ORDERED: TRAMADOL HCL 50 MG TAB PO PRN (08:45)
[2017-11-12] MEDS ORDERED: ALBUTEROL 2.5 MG/3 ML NEB SOL NEB PRN (08:46)
--- NOTE | 2017-11-12 08:48 | P.PN ---
Subjective Date of Service: 11/12/17 Chief Complaint: cellulitis/gangrene Subjective: Doing well (Pain seems to be controlled. Patient desires to smoke.) Physical Examination - Vital Signs Temperature: 98.1 F Blood Pressure: 163/80 Pulse: 68 Respirations: 16 Pulse Ox (%): 100 - Physical Exam General: Alert, In no apparent distress, Oriented x3, Cooperative HEENT: Atraumatic Neck: Supple Respiratory: Clear to auscultation bilaterally, Normal air movement Cardiovascular: Normal pulses, Regular rate/rhythm Gastrointestinal: Normal bowel sounds, Soft and benign, Non-distended, No tenderness, No masses, No rebound, No guarding Musculoskeletal: No erythema, No tenderness, No warmth Integumentary: Other (Left foot bandaged. Patient status post left great toe amputation and of the head of the metatarsal.) Neurological: Normal speech, Normal strength at 5/5 x4 extr, Normal tone, Normal affect, Other (Patient currently in wheelchair.) - Studies Laboratory Data (last 24 hrs) 11/12/17 04:53: Sodium 136, Potassium 2.8 L*, BUN 16, Creatinine 1.29 H, Glucose 156 H, Phosphorus 2.4 L, Magnesium 2.0 D 11/12/17 04:53: WBC 17.4 H, Hgb 13.5 L, Hct 39.1 L, Plt Count 202 11/11/17 12:15: Potassium 3.6 Medications List Reviewed: Yes Assessment & Plan - Problems (Diagnosis) (1) Cellulitis Current Visit: Yes Status: Acute Plan: Cellulitis and gangrene to the left great toe. Patient status post surgery including amputation of the left great toe and head of the metatarsal. Patient doing well this time. Case discussed with surgery. Surgery believes the patient has underlying peripheral vascular disease. Surgery has consulted Cardiology for further evaluation. Patient may require angiogram with possible further intervention. Await Cardiology recommendation. Continue IV antibiotic therapy. At discharge patient will continue with oral antibiotic therapy. Qualifiers: Site of cellulitis: extremity Site of cellulitis of extremity: lower extremity Laterality: left Qualified Code(s): L03.116 - Cellulitis of left lower limb (2) Gangrene Current Visit: Yes Status: Acute Plan: Continue as above. (3) Hyperlipemia Current Visit: No Status: Chronic Plan: Will check fasting lipid panel. Will start medication. Qualifiers: Hyperlipidemia type: unspecified Qualified Code(s): E78.5 - Hyperlipidemia , unspecified (4) COPD (chronic obstructive pulmonary disease) Onset Date: 03/15/17 Current Visit: No Status: Chronic Plan: Will continue with COPD medication. Qualifiers: COPD type: chronic bronchitis Chronic bronchitis type: unspecified Qualified Code(s): J42 - Unspecified chronic bronchitis (5) Hypertension Onset Date: 01/07/16 Current Visit: No Status: Chronic Plan: Will continue with Norvasc. Will add lisinopril for better blood pressure control. Qualifiers: Hypertension type: essential hypertension Qualified Code(s): I10 - Essential (primary) hypertension (6) PAD (peripheral artery disease) Current Visit: No Status: Chronic Plan: Patient with peripheral artery disease. Cardiology to evaluate further. (7) Tobacco abuse Current Visit: No Status: Chronic Plan: Tobacco cessation addressed in detail. (8) Renal insufficiency Current Visit: Yes Status: Acute Plan: Will continue with IV fluids. Will monitor and adjust appropriately. (9) Hypokalemia Current Visit: Yes Status: Acute Plan: Will monitor and replace appropriately. Replacement protocol in place. (10) Hyponatremia Current Visit: Yes Status: Acute Plan: Will continue with IV fluids. Will monitor and adjust electrolytes. Discharge Plan: Home Plan to discharge in: 48 Hours Time Spent Managing Pts Care (In Minutes): 55
[2017-11-12] MEDS: NICOTINE 21 MG/PAT TD SCH (08:52)
[2017-11-12] MEDS: AMLODIPINE 10 MG TAB PO SCH (08:53)
[2017-11-12] MEDS: THIAMINE HCL 100 MG TABLET PO SCH (08:53)
[2017-11-12] MEDS: LISINOPRIL 10 MG TAB PO SCH (08:59)
[2017-11-12] MEDS ORDERED: FUROSEMIDE 20 MG TABLET PO SCH (09:00)
--- NOTE | 2017-11-12 11:27 | CON ---
History Of Present Illness: Mr. Leblanc is a 51-year-old, came to the hospital with gangrene on his l eft toes. He has had surgery, seems to be getting better. He may have more extensive gangrene. His calf is very tender. I am asked to see him because of possible stenosis in his left iliac and super ficial femoral arteries. The patient no doubt has peripheral vascular disease. 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 He has history of drug abuse, history of amputations on the right, it is a transmetatarsal amputation. On the left, he has had at least 2 digits amputated now. The patient continues to use tobacco. We believe he is also using some illicit drugs and alcohol. He has a history of poor compl iance with medical recommendations, and it was just yesterday that he had amputation of the left grea t toe. Physical Examination: General: He appears to be older than his stated age of 51, 6 feet 1 inch, 209 pounds. Vital Signs: Temperature 96.5, blood pressure 159/92. HEENT: Unremarkable. Neck: I do not appreciate a carotid bruit. Lungs: Clear. Heart: Does not have a significant murmur or gallop. Abdomen: Soft. Extremities: There is left iliac, left femoral bruit. His left calf is tender, but the skin seems t o be well perfused. I do not really appreciate cellulitis, but there is a lot of discoloration of th e skin on the left and popliteal pulse is not palpable. Impression: I think it is reasonable to attempt an angiogram and possible stent of the left iliac. I will talk with Dr. Burroughs about the status of his foot to see if we should try to do it tomorrow or await a little bit for the antibiotics to work, make sure we do not insert a stent in a patient who h as bacteremia. FELISHA/RENATO Voice ID: [id number] Report ID: [id number]
[2017-11-12] MEDS ORDERED: POTASSIUM CL 60 MEQ in NA CHLORIDE 0.9% 500 ML IV ONE (11:30)
--- NOTE | 2017-11-12 11:36 | PN ---
Date of Progress Note: 11/12/2017 Subjective: The patient is awake, alert. States that the left groin and thigh pain is much better; however, still having pain below the knee and the foot. Objective: Vital Signs: Stable. Afebrile. Extremities: Dressing is clean, dry, and intact. Assessment: Left great toe transmetatarsal amputation for gangrene with cellulitis and lymphangitis. Recommendations: Continue IV antibiotics. 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 We will discuss amelia t with Dr. Perry. Wound care as ordered. /MODL Voice ID: [id number] Report ID: [id number]
[2017-11-12] MEDS: VANCOMYCIN 1.75 GM in NA CHLORIDE 0.9% 500 ML IVPB SCH (15:02)
[2017-11-12] MEDS: ENOXAPARIN 40 MG/0.4 ML SQ SCH (17:00)
[2017-11-12] MEDS: ARFORMOTEROL TARTRATE 15 MCG/2 ML VIAL.NEB NEB SCH (19:48)
[2017-11-12] MEDS ORDERED: MORPHINE 2 MG/ML SYR IV PRN (20:18)
[2017-11-12] MEDS: ATORVASTATIN 40 MG TAB PO SCH (20:31)
[2017-11-13] MEDS: PIPER/TAZO/NS 3.375gm 3.375 GM/100 ML BAG IVPB SCH ×4 (00:13→23:48)
[2017-11-13] MEDS ORDERED: POTASSIUM 25 MEQ EFFERV TAB PO ONE ×2 (01:58→06:34)
[2017-11-13] MEDS: HYDROCODONE/APAP 7.5/325 MG TAB PO PRN ×2 (04:08→11:23)
[2017-11-13 04:53] LABS: Absolute Lymphocytes (CBC) 1.8 K/uL (0.7-4.9); Absolute Monocytes 0.5 K/uL (0.1-1.3); Absolute Neutrophil 7.6 K/uL (1.8-8.0); Basophils % 0.2 % (0-1.3); Eosinophils % 0.2 % (0-4.4); Hematocrit 33.4 % (39.6-49.0); Lymphocytes % 18.2 % (15.3-44.8); MCH 34.1 pg (27.0-35.0); MCV 95.4 fL (80-100); MPV 8.6 fL (7.6-11.3); Monocytes % 4.6 % (3.3-12.3); RBC Red Blood Cell Count 3.51 M/uL (4.33-5.43)
[2017-11-13 05:23] LABS: Potassium 3.5 mEq/L (3.6-5.0)
[2017-11-13] MEDS: PANTOPRAZOLE 40MG TABLET PO SCH (05:33)
--- NOTE | 2017-11-13 07:46 | P.PN ---
Subjective Date of Service: 11/13/17 Primary Care Provider: None Chief Complaint: cellulitis/gangrene Subjective: Improving (Patient doing better. Patient required IV pain medication last night.) Physical Examination - Vital Signs Temperature: 97.5 F Blood Pressure: 120/63 Pulse: 74 Respirations: 18 Pulse Ox (%): 98 - Physical Exam General: Alert, In no apparent distress, Oriented x3, Cooperative HEENT: Atraumatic Neck: Supple Respiratory: Clear to auscultation bilaterally, Normal air movement Cardiovascular: Normal pulses, Regular rate/rhythm Gastrointestinal: Normal bowel sounds, Soft and benign, Non-distended, No tenderness, No masses, No rebound, No guarding Musculoskeletal: No erythema, No warmth, Tenderness (Patient reports pain to the left foot.) Integumentary: Other (Left foot bandaged.) Neurological: Normal speech, Normal strength at 5/5 x4 extr, Normal tone, Normal affect - Studies Medications List Reviewed: Yes Assessment & Plan - Problems (Diagnosis) (1) Cellulitis Onset Date: 11/12/17 Current Visit: Yes Status: Acute Plan: Cellulitis and gangrene to the left great toe. Patient status post surgery including amputation of the left great toe and head of the metatarsal. Will continue with pain control. Will add Neurontin for pain. Will decrease IV pain medication use. Case discussed with surgery yesterday. Cardiology has evaluated patient. Cardiology agrees with angiogram and possible need for stent placement. Will discuss with cardiology to see when this will be done. So far blood cultures negative. Will continue IV antibiotic therapy. Qualifiers: Site of cellulitis: extremity Site of cellulitis of extremity: lower extremity Laterality: left Qualified Code(s): L03.116 - Cellulitis of left lower limb (2) Gangrene Onset Date: 11/12/17 Current Visit: Yes Status: Acute Plan: Continue as above. (3) Hyperlipemia Current Visit: No Status: Chronic Plan: Will continue with medication. Qualifiers: Hyperlipidemia type: unspecified Qualified Code(s): E78.5 - Hyperlipidemia , unspecified (4) COPD (chronic obstructive pulmonary disease) Onset Date: 03/15/17 Current Visit: No Status: Chronic Plan: Will continue with COPD medication. Qualifiers: COPD type: chronic bronchitis Chronic bronchitis type: unspecified Qualified Code(s): J42 - Unspecified chronic bronchitis (5) Hypertension Onset Date: 01/07/16 Current Visit: No Status: Chronic Plan: Blood pressure better controlled with lisinopril. Patient already on Norvasc. Qualifiers: Hypertension type: essential hypertension Qualified Code(s): I10 - Essential (primary) hypertension (6) PAD (peripheral artery disease) Current Visit: No Status: Chronic Plan: Patient with peripheral artery disease. Cardiology has evaluated patient. Cardiology agrees with plan for angiogram and possible need for stent placement. Will discuss with Cardiology to determine when this will be done. (7) Tobacco abuse Onset Date: 11/12/17 Current Visit: Yes Status: Chronic Plan: Tobacco cessation addressed in detail. (8) Renal insufficiency Onset Date: 11/12/17 Current Visit: Yes Status: Acute Plan: Will continue with IV fluids. This has improved. Will Dc IV fluids if taking oral intake well. (9) Hypokalemia Onset Date: 11/12/17 Current Visit: Yes Status: Acute Plan: Will monitor and replace appropriately. Replacement protocol in place. (10) Hyponatremia Onset Date: 11/12/17 Current Visit: Yes Status: Acute Plan: Will continue with IV fluids. Will monitor and adjust electrolytes. (11) Anemia Onset Date: 01/07/16 Current Visit: No Status: Chronic Plan: Patient is status post surgery. Will monitor closely. Qualifiers: Anemia type: other cause Discharge Plan: Home Plan to discharge in: 24 Hours (to 48 hours) Time Spent Managing Pts Care (In Minutes): 55
[2017-11-13] MEDS: ARFORMOTEROL TARTRATE 15 MCG/2 ML VIAL.NEB NEB SCH ×2 (07:59→21:27)
[2017-11-13] MEDS: GABAPENTIN 100 MG CAP PO SCH ×3 (08:50→20:15)
[2017-11-13] MEDS: NICOTINE 21 MG/PAT TD SCH (08:50)
[2017-11-13] MEDS: AMLODIPINE 10 MG TAB PO SCH (08:51)
[2017-11-13] MEDS: LISINOPRIL 10 MG TAB PO SCH (08:51)
[2017-11-13] MEDS: VANCOMYCIN 1.75 GM in NA CHLORIDE 0.9% 500 ML IVPB SCH (08:52)
[2017-11-13] MEDS: THIAMINE HCL 100 MG TABLET PO SCH (08:58)
[2017-11-13] MEDS: MORPHINE 4 MG/ML SYR IV PRN ×3 (08:59→20:36)
[2017-11-13] MEDS: COLLAGENASE 30 GM OINTMENT TOP SCH (11:24)
[2017-11-13] MEDS: NA CHLORIDE 0.9% 1,000 ML IV SCH (11:40)
--- NOTE | 2017-11-13 13:49 | PN ---
Date of Progress Note: 11/13/2017 Subjective: The patient with no complaints. Objective: Vital Signs: Stable. Afebrile. Extremities: Dressing clean, dry, and intact. Assessment: Status post left first toe transmetatarsal amputation. Recommendations: Continue IV antibiotics. The patient needs to have a peripheral angiogram on . We will await the results of that, following which, the patient can be discharged. /MODL Voice ID: [id number] Report ID: [id number]
[2017-11-13] MEDS: ENOXAPARIN 40 MG/0.4 ML SQ SCH (16:58)
[2017-11-13] MEDS: ATORVASTATIN 40 MG TAB PO SCH (20:14)
[2017-11-14] MEDS: MORPHINE 4 MG/ML SYR IV PRN ×2 (00:11→06:00)
[2017-11-14] MEDS: NA CHLORIDE 0.9% 1,000 ML IV SCH (00:34)
[2017-11-14] MEDS: VANCOMYCIN 1.75 GM in NA CHLORIDE 0.9% 500 ML IVPB SCH ×2 (03:41→21:06)
[2017-11-14 05:00] LABS: Absolute Lymphocytes (CBC) 2.6 K/uL (0.7-4.9); Absolute Monocytes 0.4 K/uL (0.1-1.3); Absolute Neutrophil 3.2 K/uL (1.8-8.0); Eosinophils % 1.6 % (0-4.4); Hematocrit 35.5 % (39.6-49.0); Lymphocytes % 40.1 % (15.3-44.8); MCH 32.7 pg (27.0-35.0); MPV 8.4 fL (7.6-11.3)
[2017-11-14 05:22] LABS: Magnesium 2.3 mg/dL (1.8-2.4); Potassium 3.5 mmol/L (3.5-5.1)
[2017-11-14] MEDS: PANTOPRAZOLE 40MG TABLET PO SCH (05:56)
[2017-11-14] MEDS ORDERED: POTASSIUM 25 MEQ EFFERV TAB PO ONE (06:00)
[2017-11-14] MEDS: ARFORMOTEROL TARTRATE 15 MCG/2 ML VIAL.NEB NEB SCH ×2 (07:50→20:01)
[2017-11-14] MEDS: NICOTINE 21 MG/PAT TD SCH (09:00)
[2017-11-14] MEDS: AMLODIPINE 10 MG TAB PO SCH (09:34)
[2017-11-14] MEDS: LISINOPRIL 10 MG TAB PO SCH (09:34)
[2017-11-14] MEDS: THIAMINE HCL 100 MG TABLET PO SCH (09:34)
[2017-11-14] MEDS: GABAPENTIN 100 MG CAP PO SCH ×3 (09:34→21:07)
[2017-11-14] MEDS: PIPER/TAZO/NS 3.375gm 3.375 GM/100 ML BAG IVPB SCH ×2 (09:35→17:19)
[2017-11-14] MEDS: COLLAGENASE 30 GM OINTMENT TOP SCH (09:35)
--- NOTE | 2017-11-14 09:55 | P.PN ---
Subjective Date of Service: 11/14/17 Primary Care Provider: None Chief Complaint: cellulitis/gangrene Subjective: Other (Patient doing well. Pain the left lower extremity improved.) Physical Examination - Vital Signs Temperature: 97.8 F Blood Pressure: 114/67 Pulse: 70 Respirations: 18 Pulse Ox (%): 97 - Physical Exam General: Alert, In no apparent distress, Oriented x3, Cooperative HEENT: Atraumatic, Mucous membr. moist/pink Neck: Supple Respiratory: Clear to auscultation bilaterally, Normal air movement Cardiovascular: Normal pulses, Regular rate/rhythm Gastrointestinal: Normal bowel sounds, Soft and benign, Non-distended, No tenderness, No masses, No rebound, No guarding Musculoskeletal: No tenderness, No warmth Integumentary: Other (Bandage to the left foot in place. No edema noted.) Neurological: Normal speech, Normal strength at 5/5 x4 extr, Normal tone, Normal affect Lymphatics: No axilla or inguinal lymphadenopathy - Studies Medications List Reviewed: Yes Assessment & Plan - Problems (Diagnosis) (1) Cellulitis Onset Date: 11/12/17 Current Visit: Yes Status: Acute Plan: Cellulitis and gangrene to the left great toe. Patient status post surgery including amputation of the left great toe and head of the metatarsal. Will continue with pain control. Will increase Neurontin for better pain control. Will limit IV pain medication. Cardiology plans for angiogram and possible stent placement tomorrow. Possible discharge tomorrow if stable. Patient will need oral antibiotic therapy at discharge. Continue with wound care. Qualifiers: Site of cellulitis: extremity Site of cellulitis of extremity: lower extremity Laterality: left Qualified Code(s): L03.116 - Cellulitis of left lower limb (2) Gangrene Onset Date: 11/12/17 Current Visit: Yes Status: Acute Plan: Continue as above. (3) Hyperlipemia Current Visit: No Status: Chronic Plan: Will continue with medication. Qualifiers: Hyperlipidemia type: unspecified Qualified Code(s): E78.5 - Hyperlipidemia , unspecified (4) COPD (chronic obstructive pulmonary disease) Onset Date: 03/15/17 Current Visit: No Status: Chronic Plan: Will continue with COPD medication. Qualifiers: COPD type: chronic bronchitis Chronic bronchitis type: unspecified Qualified Code(s): J42 - Unspecified chronic bronchitis (5) Hypertension Onset Date: 01/07/16 Current Visit: No Status: Chronic Plan: Blood pressure better controlled with lisinopril. Patient already on Norvasc. Qualifiers: Hypertension type: essential hypertension Qualified Code(s): I10 - Essential (primary) hypertension (6) PAD (peripheral artery disease) Current Visit: No Status: Chronic Plan: Patient with peripheral artery disease. Cardiology has evaluated patient. Cardiology agrees with plan for angiogram and possible need for stent placement for tomorrow. (7) Tobacco abuse Onset Date: 11/12/17 Current Visit: Yes Status: Chronic Plan: Tobacco cessation addressed in detail. (8) Renal insufficiency Onset Date: 11/12/17 Current Visit: Yes Status: Acute Plan: This appears resolved. If taking good oral intake will discontinue IV fluids. (9) Hypokalemia Onset Date: 11/12/17 Current Visit: Yes Status: Acute Plan: Will monitor and replace appropriately. Replacement protocol in place. (10) Hyponatremia Onset Date: 11/12/17 Current Visit: Yes Status: Acute Plan: Will continue with IV fluids. Will monitor and adjust electrolytes. (11) Anemia Onset Date: 01/07/16 Current Visit: No Status: Chronic Plan: Patient is status post surgery. Will monitor closely. Qualifiers: Anemia type: other cause Discharge Plan: Home Plan to discharge in: 24 Hours Time Spent Managing Pts Care (In Minutes): 55
[2017-11-14] MEDS: HYDROCODONE/APAP 7.5/325 MG TAB PO PRN ×2 (12:57→17:18)
[2017-11-14] MEDS: ENOXAPARIN 40 MG/0.4 ML SQ SCH (17:19)
[2017-11-14] MEDS: ATORVASTATIN 40 MG TAB PO SCH (21:07)
[2017-11-15] MEDS: PIPER/TAZO/NS 3.375gm 3.375 GM/100 ML BAG IVPB SCH ×3 (00:25→17:00)
--- NOTE | 2017-11-15 00:53 | PN ---
Subjective: Mr. Leblanc had been seen by Dr. Perry, admitted by Dr. Mota, and seen by Dr. Burroughs fo r peripheral vascular disease and gangrene. Arterial Doppler is consistent with iliac stenosis on left side in the common iliac and probably SFA. Remains on IV antibiotics, slightly febrile, with an elevated white count. We will continue his present therapy with IV antibiotics. We will plan to give him that for another 48 hours. I will plan to do an abdominal angiogram with runoff with possib le intervention on , 11/15/2017. The patient understands the risk and the benefit of the pro cedure. Dr. Mota and Dr. Burroughs are aware. LASHAUN/RENATO Voice ID: [id number] Report ID: [id number]
[2017-11-15] MEDS: PANTOPRAZOLE 40MG TABLET PO SCH (04:39)
[2017-11-15 04:43] LABS: Absolute Lymphocytes (CBC) 2.2 K/uL (0.7-4.9); Absolute Monocytes 0.6 K/uL (0.1-1.3); Absolute Neutrophil 4.6 K/uL (1.8-8.0); Basophils % 1.1 % (0-1.3); Eosinophils % 2.3 % (0-4.4); Hematocrit 40.7 % (39.6-49.0); Lymphocytes % 28.3 % (15.3-44.8); MCV 96.4 fL (80-100); MPV 8.2 fL (7.6-11.3); Monocytes % 7.9 % (3.3-12.3); RBC Red Blood Cell Count 4.23 M/uL (4.33-5.43)
[2017-11-15 04:49] LABS: Magnesium 2.2 mg/dL (1.8-2.4); Potassium 3.8 mmol/L (3.5-5.1)
[2017-11-15] MEDS ORDERED: NA CHLORIDE 0.9% 250 ML ONE (05:34)
[2017-11-15] MEDS ORDERED: KCL 20 MEQ/100 mL IVPB 20 MEQ/100 ML BAG IV SCH (06:00)
[2017-11-15 06:33] VITALS: BMI 27.1
[2017-11-15] MEDS: MORPHINE 4 MG/ML SYR IV PRN ×3 (06:55→16:19)
[2017-11-15] MEDS: COLLAGENASE 30 GM OINTMENT TOP SCH ×2 (07:22→08:24)
[2017-11-15] MEDS: ARFORMOTEROL TARTRATE 15 MCG/2 ML VIAL.NEB NEB SCH ×2 (07:27→20:39)
[2017-11-15] MEDS: AMLODIPINE 10 MG TAB PO SCH (08:20)
[2017-11-15] MEDS: LISINOPRIL 10 MG TAB PO SCH (08:21)
[2017-11-15] MEDS: GABAPENTIN 100 MG CAP PO SCH ×2 (08:27→13:48)
[2017-11-15] MEDS: NICOTINE 21 MG/PAT TD SCH (08:27)
[2017-11-15] MEDS: THIAMINE HCL 100 MG TABLET PO SCH ×2 (08:28→16:11)
--- NOTE | 2017-11-15 08:40 | P.PN ---
Subjective Date of Service: 11/15/17 Primary Care Provider: None Chief Complaint: cellulitis/gangrene Subjective: Doing well Physical Examination - Vital Signs Temperature: 97.9 F Blood Pressure: 151/79 Pulse: 78 Respirations: 18 Pulse Ox (%): 99 - Physical Exam General: Alert, In no apparent distress, Oriented x3 HEENT: Atraumatic, Mucous membr. moist/pink Neck: Supple Respiratory: Clear to auscultation bilaterally, Normal air movement Cardiovascular: Normal pulses, Regular rate/rhythm Gastrointestinal: Normal bowel sounds, Soft and benign, Non-distended, No tenderness, No masses, No rebound, No guarding Musculoskeletal: No erythema, No tenderness, No warmth Integumentary: Other (Wounds to the left foot evaluated. Good granulation noted to amputated area. No exudate noted.) Neurological: Normal speech, Normal strength at 5/5 x4 extr, Normal tone, Normal affect - Studies Medications List Reviewed: Yes Assessment & Plan - Problems (Diagnosis) (1) Cellulitis Onset Date: 11/12/17 Current Visit: Yes Status: Acute Plan: Patient doing well post amputation of the left great toe and head of the metatarsal. Wound evaluated. Good granulation noted. Patient will continue with current wound care. Pain seems to be better controlled with Neurontin. Patient to have angiogram with possible stent placement today. If stable possible discharge later today. Patient will need to continue with wound care and follow up with surgery. Will discuss with cardiology about plan of care. Qualifiers: Site of cellulitis: extremity Site of cellulitis of extremity: lower extremity Laterality: left Qualified Code(s): L03.116 - Cellulitis of left lower limb (2) Gangrene Onset Date: 11/12/17 Current Visit: Yes Status: Acute Plan: Continue as above. (3) Hyperlipemia Current Visit: No Status: Chronic Plan: Will continue with medication. Qualifiers: Hyperlipidemia type: unspecified Qualified Code(s): E78.5 - Hyperlipidemia , unspecified (4) COPD (chronic obstructive pulmonary disease) Onset Date: 03/15/17 Current Visit: No Status: Chronic Plan: Will continue with COPD medication. Qualifiers: COPD type: chronic bronchitis Chronic bronchitis type: unspecified Qualified Code(s): J42 - Unspecified chronic bronchitis (5) Hypertension Onset Date: 01/07/16 Current Visit: No Status: Chronic Plan: Blood pressure better controlled with lisinopril. Patient already on Norvasc. Qualifiers: Hypertension type: essential hypertension Qualified Code(s): I10 - Essential (primary) hypertension (6) PAD (peripheral artery disease) Current Visit: No Status: Chronic Plan: Patient with peripheral artery disease. Cardiology has evaluated patient. Cardiology plans for angiogram with possible stent placement of the lower extremity today. Await recommendations and findings. (7) Tobacco abuse Onset Date: 11/12/17 Current Visit: Yes Status: Chronic Plan: Tobacco cessation addressed in detail. (8) Renal insufficiency Onset Date: 11/12/17 Current Visit: Yes Status: Acute Plan: This appears resolved. If taking good oral intake will discontinue IV fluids. (9) Hypokalemia Onset Date: 11/12/17 Current Visit: Yes Status: Acute Plan: Will monitor and replace appropriately. Replacement protocol in place. (10) Hyponatremia Onset Date: 11/12/17 Current Visit: Yes Status: Acute Plan: Will continue with IV fluids. Will monitor and adjust electrolytes. (11) Anemia Onset Date: 01/07/16 Current Visit: No Status: Chronic Plan: Patient is status post surgery. Will monitor closely. Qualifiers: Anemia type: other cause Discharge Plan: Home Plan to discharge in: 24 Hours Time Spent Managing Pts Care (In Minutes): 55
--- NOTE | 2017-11-15 12:19 | PN ---
Date of Progress Note: 11/15/2017 Subjective: The patient is awake, alert. No complaint. Objective: Vital Signs: Stable. Afebrile. Extremities: Dressing clean, dry, intact. Assessment: Status post left great toe transmetatarsal amputation with severe peripheral vascular di sease. Recommendations: The patient is on antibiotics, we will continue that. We will have an angiogram to day and following which if he is stable, he can be discharged home. Follow up with me with the appro priate antibiotics discussed with Dr. Mota as well as wound care and we will make further recommend ation after seeing him in the clinic next week. /MODL Voice ID: [id number] Report ID: [id number]
[2017-11-15] MEDS ORDERED: MIDAZOLAM HCL 2 MG/2 ML INJ ONE ×2 (13:54→14:20)
[2017-11-15] MEDS ORDERED: FENTANYL CITR 100 MCG/2 ML ONE (13:54)
[2017-11-15] MEDS ORDERED: LIDOCAINE 1% 20 ML MDV ONE (13:54)
[2017-11-15] MEDS ORDERED: HEPA 1000U/500MLS 2,000 UNIT/1,000 ML BAG IV ONE (13:54)
[2017-11-15] MEDS ORDERED: HEPARIN 5000 UNIT/ML 1 ML VIAL ONE (14:15)
[2017-11-15] MEDS ORDERED: CLOPIDOGREL 75 MG TABLET ONE (14:46)
--- NOTE | 2017-11-15 15:18 | P.DS ---
Admission Date: 11/12/17 Discharge Date: 11/15/17 Primary Care Provider: None Disposition: ROUTINE DISCHARGE Discharge Condition: GOOD Reason for Admission: cellulitis/gangrene Consultations: Surgery-Dr. Burroughs Cardiology-Dr. Clark Procedures: Surgery: Date of Procedure: 11/11/2017 Surgeon: Krish Burroughs MD Preoperative Diagnosis: Gangrenous and cellulitis, left great toe. Postoperative Diagnosis: Gangrenous and cellulitis, left great toe. Procedure: Left transmetatarsal first toe amputation. Estimated Blood Loss: Minimal. Specimen: Left great toe and transmetatarsal head. Findings: As above. Anesthesia: General. Complications: None. Angiogram: Stent placed to Left Superficial Femoral Artery. - Problems (1) Cellulitis Onset Date: 11/12/17 Current Visit: Yes Status: Acute Qualifiers: Site of cellulitis: extremity Site of cellulitis of extremity: lower extremity Laterality: left Qualified Code(s): L03.116 - Cellulitis of left lower limb (2) Gangrene Onset Date: 11/12/17 Current Visit: Yes Status: Acute (3) Hyperlipemia Current Visit: No Status: Chronic Qualifiers: Hyperlipidemia type: unspecified Qualified Code(s): E78.5 - Hyperlipidemia , unspecified (4) COPD (chronic obstructive pulmonary disease) Onset Date: 03/15/17 Current Visit: No Status: Chronic Qualifiers: COPD type: chronic bronchitis Chronic bronchitis type: unspecified Qualified Code(s): J42 - Unspecified chronic bronchitis (5) Hypertension Onset Date: 01/07/16 Current Visit: No Status: Chronic Qualifiers: Hypertension type: essential hypertension Qualified Code(s): I10 - Essential (primary) hypertension (6) PAD (peripheral artery disease) Current Visit: No Status: Chronic (7) Tobacco abuse Onset Date: 11/12/17 Current Visit: Yes Status: Chronic (8) Renal insufficiency Onset Date: 11/12/17 Current Visit: Yes Status: Acute (9) Hypokalemia Onset Date: 11/12/17 Current Visit: Yes Status: Acute (10) Hyponatremia Onset Date: 11/12/17 Current Visit: Yes Status: Acute (11) Anemia Onset Date: 01/07/16 Current Visit: No Status: Chronic Qualifiers: Anemia type: other cause (12) Superficial femoral artery occlusion Current Visit: Yes Status: Acute Brief History of Present Illness: 51 yo CM presented to the ER with Gangrene to the left great toe. He was admitted for treatment. He has HTN, COPD, PVD. Hospital Course: Patient presented with Gangrene to the left great toe. Patient seen and evaluated by Surgery. Surgery recommended amputation. Patient had Amputation of left great toe and distal metatarsal head. He tolerated procedure well. At discharge he will continue with wound care. He will continue with Cipro 500 mg one pill twice daily and doxycycline 100 mg one pill twice daily for 10 days. He will need to follow up with Surgery at the Wound care center to continue to monitor and care for the wound. Patient has COPD. He will continue with Symbicort 2 puffs twice daily and Proair HFA 2 puffs three times a day as needed for shortness of breath. Patient has HTN. Recommendation is to maintain BP less than 150/80. At discharge he will continue with Norvasc 10 mg daily and Lisinopril 10 mg daily. Further adjustment can be done by his PCP as outpatient. Tobacco and alcohol cessation education will be provided. Patient has peripheral vascular disease. Surgery recommended Cardiology evaluation for further assessment of his PVD. Patient seen by Cardiology. He had an angiogram of the left lower extremity. Stent was placed to Left Superficial Femoral Artery. He tolerated the procedure well. Cardiology recommends that he continue with Aspirin 81 mg daily and Plavix 75 mg one pill daily. Patient has Chronic pain and neuropathy. At discharge he will continue with Neurontin 200 mg one pill three times a day. He will be given a limited supply of Tramadol for severe pain. Recommendation is for the patient to see Pain management as an outpatient to further address and control. Patient has GERD. At discharge he will continue with Protonix 40 mg daily Patient has Hyperlipidemia. He will continue with Lipitor 80 mg one pill daily. Vital Signs/Physical Exam: Temp Pulse Resp BP Pulse Ox 98.8 F 53 15 130/73 100 11/15/17 14:27 11/15/17 14:57 11/15/17 14:57 11/15/17 14:57 11/15/17 12:00 General: Alert, In no apparent distress, Oriented x3, Cooperative HEENT: Atraumatic Neck: Supple Respiratory: Clear to auscultation bilaterally, Normal air movement Cardiovascular: Normal pulses, Regular rate/rhythm Gastrointestinal: Normal bowel sounds, Soft and benign, Non-distended, No tenderness, No masses, No rebound, No guarding Musculoskeletal: No erythema, No tenderness, No warmth Integumentary: No tenderness/swelling, No erythema, No warmth, No cyanosis Neurological: Normal speech, Normal strength at 5/5 x4 extr, Normal tone, Normal affect Laboratory Data at Discharge: WBC 7.6 K/uL (4.3-10.9) D 11/15/17 04:06 Hgb 14.0 g/dL (13.6-17.9) 11/15/17 04:06 Hct 40.7 % (39.6-49.0) 11/15/17 04:06 Plt Count 233 K/uL (152-406) D 11/15/17 04:06 Sodium 140 mmol/L (136-145) 11/15/17 04:06 Potassium 3.8 mmol/L (3.5-5.1) 11/15/17 04:06 BUN 9 mg/dL (7-18) 11/15/17 04:06 Creatinine 1.00 mg/dL (0.55-1.3) 11/15/17 04:06 Glucose 106 mg/dL (74-106) 11/15/17 04:06 Phosphorus 2.4 mg/dL (2.5-4.3) L 11/12/17 04:53 Magnesium 2.2 mg/dL (1.8-2.4) 11/15/17 04:06 Total Bilirubin 0.7 mg/dL (0.3-1.2) 11/10/17 21:05 AST 25 IU/L (10-42) 11/10/17 21:05 ALT 29 IU/L (10-60) 11/10/17 21:05 Alkaline Phosphatase 62 IU/L (42-121) 11/10/17 21:05 Triglycerides 264 mg/dL (35-160) H 11/13/17 04:16 Cholesterol 155 mg/dL (<200) 11/13/17 04:16 HDL Cholesterol 12 mg/dL (27-67) L 11/13/17 04:16 Cholesterol/HDL Ratio 12.92 11/13/17 04:16 Home Medications: Albuterol Sulfate [Proair Hfa] 8.5 gm IH TID PRN #1 hfa.aer.ad 11/15/17 Amlodipine Besylate 10 mg PO DAILY #30 tablet 11/15/17 Aspirin [Aspirin EC 81 MG] 81 mg PO DAILY #90 tablet. 11/15/17 Atorvastatin Calcium [Lipitor] 80 mg PO BEDTIME #30 tablet 11/15/17 Budesonide/Formoterol Fumarate [Symbicort 160-4.5 Mcg Inhaler] 2 puff IH BID #1 hfa.aer.ad 11/15/17 Clopidogrel Bisulfate [Plavix] 75 mg PO DAILY #30 tablet 11/15/17 Collagenase [Santyl Ointment*] 1 appl TOP DAILY #1 tube 11/15/17 Gabapentin [Neurontin*] 200 mg PO TID #180 cap 11/15/17 Lisinopril [Prinivil*] 10 mg PO DAILY #30 tab 11/15/17 Pantoprazole [Protonix Tab*] 40 mg PO DAILYAC #30 tab 11/15/17 Thiamine HCl [Vitamin B-1*] 100 mg PO DAILY #30 tablet 11/15/17 traMADol HCL [Ultram*] 50 mg PO TID PRN #20 tab 11/15/17 New Medications: Albuterol Sulfate [Proair Hfa] 8.5 gm IH TID PRN #1 hfa.aer.ad PRN Reason: Shortness Of Breath Amlodipine Besylate 10 mg PO DAILY #30 tablet Aspirin [Aspirin EC 81 MG] 81 mg PO DAILY #90 tablet. Atorvastatin Calcium [Lipitor] 80 mg PO BEDTIME #30 tablet Budesonide/Formoterol Fumarate [Symbicort 160-4.5 Mcg Inhaler] 2 puff IH BID #1 hfa.aer.ad Clopidogrel Bisulfate [Plavix] 75 mg PO DAILY #30 tablet Collagenase [Santyl Ointment*] 1 appl TOP DAILY #1 tube Gabapentin [Neurontin*] 200 mg PO TID #180 cap Lisinopril [Prinivil*] 10 mg PO DAILY #30 tab Pantoprazole [Protonix Tab*] 40 mg PO DAILYAC #30 tab Thiamine HCl [Vitamin B-1*] 100 mg PO DAILY #30 tablet traMADol HCL [Ultram*] 50 mg PO TID PRN #20 tab PRN Reason: Pain Mild Patient Discharge Instructions: 1. Patient will need to follow up with his PCP in 1 week to follow up this hospitalization. 2. Patient presented with Gangrene to the left great toe. Patient seen and evaluated by Surgery. Surgery recommended amputation. Patient had Amputation of left great toe and distal metatarsal head. He tolerated procedure well. At discharge he will continue with wound care. He will continue with Cipro 500 mg one pill twice daily and doxycycline 100 mg one pill twice daily for 10 days. He will need to follow up with Surgery at the Wound care center to continue to monitor and care for the wound. 3. Patient has COPD. He will continue with Symbicort 2 puffs twice daily and Proair HFA 2 puffs three times a day as needed for shortness of breath. 4. Patient has HTN. Recommendation is to maintain BP less than 150/ 80. At discharge he will continue with Norvasc 10 mg daily and Lisinopril 10 mg daily. Further adjustment can be done by his PCP as outpatient. 5. Tobacco and alcohol cessation education will be provided. 6. Patient has peripheral vascular disease. Patient seen by Cardiology. He has an angiogram of the left lower extremity. Stent was placed to Left Superficial Femoral Artery. He tolerated the procedure well. He will continue with Aspirin 81 mg daily and Plavix 75 mg one pill daily. 7. Patient has Chronic pain and neuropathy. At discharge he will continue with Neurontin 200 mg one pill three times a day. He will be given a limited supply of Tramadol for severe pain. Recommendation is for the patient to see Pain management as an outpatient to further address and control. 8. Patient has GERD. At discharge he will continue with Protonix 40 mg daily. 9. Patient has Hyperlipidemia. He will continue with Lipitor 80 mg one pill daily. Diet: AHA Activity: Fall precautions Followup: Krish Burroughs MD [ACTIVE - CAN ADMIT] - 1-2 Weeks ([facility] in my clinic) Time spent managing pt's care (in minutes): 55
[2017-11-15] MEDS: ENOXAPARIN 40 MG/0.4 ML SQ SCH (16:24)
[2017-11-15] MEDS: VANCOMYCIN 1.75 GM in NA CHLORIDE 0.9% 500 ML IVPB SCH (16:43)
[2017-11-15 17:24] VITALS: O2SAT 100
[2017-11-15 18:03] VITALS: BP 157/74; TEMP 97.6
--- NOTE | 2017-11-16 02:31 | OP ---
Date of Procedure: 11/15/2017 Surgeon: Bill Clark MD Rejector: Justa Parikh. Case was discussed with Dr. Mota. I recommended he goes home on Plavix, aspirin, and Lipitor 80 mg daily. The patient can go home in 2 hours. Closure was done using [employer]. Procedure: Abdominal angiogram with runoff with primary stent of the left SFA. Indication: Peripheral vascular disease. Description Of Procedure: Mr. Leblanc was brought in as an inpatient. He is a 51-year-old. He is st atus post toe amputation on the left foot, documented peripheral vascular disease by Doppler, brought in for abdominal angiogram with runoff. Given 2 mg of Versed for IV sedation and 25 mg of fentanyl. A 6-[place] sheath introduced in the right common femoral artery successfully. A pigtail was used a nd advanced above the renals. Angiogram showed normal renals, diffuse plaquing in the left SFA, diff use disease below the knee on the left side. On the right-sided below the knee, he had some minimal plaquing, but patent posterior tibial, anterior tibial, and peroneal vessels. He has some mild-to-mo derate plaquing in the iliacs and throughout the SFA. He had only one 90% stenosis in the left SFA t hat was focal. A 6 x 39 Omnilink stent was used. Primary was 0% residual at 8 atmosphere. No compl ications. Blood loss was 5 cc. Final Diagnosis: Peripheral vascular disease status post primary stent of the left SFA. 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 Total conscious sedation was 45 minutes. Operators: MD LASHAUN Guzman/RENATO Voice ID: [id number] Report ID: [id number]
[2017-11-16] MEDS ORDERED: ASPIRIN EC 81 MG TAB PO SCH (09:00)
== END 2017-11-15 21:00 | disposition home health service (06) | DRG 253 ==
LOC: ER 20:06 → ERHOLD 11-11 00:27 → 2ND 11-11 00:43 → OBSVTOIN 11-12 08:13 → 4TH 11-13 16:41
PROVIDERS: ADMIT Internal Medicine; ATTEND Family Medicine
PROC: 0Y6Q0Z0 Detachment at Left 1st Toe, Complete, Open Approach (ICD-10-PCS; principal; 2017-11-11 11:00)
PROC: 047L3DZ Dilation of Left Femoral Artery with Intraluminal Device, Percutaneous Approach (ICD-10-PCS; 2017-11-15)
PROC: B41D1ZZ Fluoroscopy of Aorta and Bilateral Lower Extremity Arteries using Low Osmolar Contrast (ICD-10-PCS; 2017-11-15)
DX: I70.262 Atherosclerosis of native arteries of extremities with gangrene, left leg (principal); L03.116 Cellulitis of left lower limb; E87.1 Hypo-osmolality and hyponatremia; I50.32 Chronic diastolic (congestive) heart failure; L97.521 Non-pressure chronic ulcer of other part of left foot limited to breakdown of skin; E78.5 Hyperlipidemia, unspecified; J42 Unspecified chronic bronchitis; N28.9 Disorder of kidney and ureter, unspecified; E87.6 Hypokalemia; D64.9 Anemia, unspecified; F19.11 Other psychoactive substance abuse, in remission; Z89.421 Acquired absence of other right toe(s); Z89.411 Acquired absence of right great toe; Z89.422 Acquired absence of other left toe(s); I25.10 Atherosclerotic heart disease of native coronary artery without angina pectoris; I11.0 Hypertensive heart disease with heart failure; F17.210 Nicotine dependence, cigarettes, uncomplicated
CPT/HCPCS: 36415; 37226; 75630; 80048; 80053; 80061; 80202; 83605; 83735; 84100; 84132; 84145; 85025; 85652; 86140; 87040; 88305; 93926; 94640; 96365; 96366; 96367; 96375; 99285; C1725; C1769; C1887; C1893; J1100; J1644; J1650; J2175; J2250; J2270; J2405; J2543; J3010; J3370; J3590; J7030; J7605

== ENCOUNTER 2018-02-17 19:08 | Observation (INO) | payer OTHER ==
[2018-02-17 20:37] LABS: Absolute Monocytes 0.6 K/uL (0.1-1.3); Basophils % 1.5 % (0-1.3); Hematocrit 39.2 % (39.6-49.0); Lymphocytes % 29.8 % (15.3-44.8); MCH 32.9 pg (27.0-35.0); MCV 94.9 fL (80-100); MPV 8.4 fL (7.6-11.3); Monocytes % 5.9 % (3.3-12.3); RBC Red Blood Cell Count 4.14 M/uL (4.33-5.43)
[2018-02-17 20:41] LABS: Protime INR 1.08
[2018-02-17 20:48] LABS: AST/SGOT 12 U/L (15-37); BUN Blood Urea Nitrogen 10 mg/dL (7-18); Bicarbonate 28 mmol/L (21-32); Glucose Level 83 mg/dL (74-106); Potassium 3.9 mmol/L (3.5-5.1); Sodium Level 137 mmol/L (136-145)
[2018-02-17 20:49] LABS: ALT/SGPT 17 U/L (12-78); Albumin 3.6 g/dL (3.4-5.0); Alkaline Phosphatase 113 U/L (45-117); Bilirubin Direct < 0.1 mg/dL (0-0.2); Bilirubin Total 0.3 mg/dL (0.2-1.0); Protein, Total 8.1 g/dL (6.4-8.2)
[2018-02-17 21:08] LABS: Urine Blood NEGATIVE (NEG); Urine Glucose NEGATIVE (NEG); Urine Protein NEGATIVE (NEG)
--- NOTE | 2018-02-17 21:14 | ER ---
Nurse's Notes [facility] Name: Karlos Leblanc Age: 52 yrs Sex: Male : 1965 Arrival Date: 02/17/2018 Time: 19:11 Bed 27 Private MD: Diagnosis: Cellulitis of left lower limb Presentation: 02/17 19:23 Presenting complaint: Patient states: he was sent by Dr Burroughs for evaluation of left bb foot non-healing post-op wound from amputation to big toe on Father's Day with possible IV antibiotics. Transition of care: patient was not received from another setting of care. Onset of symptoms was November 11, 2017. Risk Assessment: Do you want to hurt yourself or someone else? Patient reports no desire to harm self or others. Initial Sepsis Screen: Does the patient meet any 2 criteria? No. Patient's initial sepsis screen is negative. Does the patient have a suspected source of infection? No. Patient's initial sepsis screen is negative. Care prior to arrival: None. 19:23 Method Of Arrival: Wheelchair bb 19:23 Acuity: KENIA 3 bb Historical: - Allergies: 19:35 NKDA; bb - Home Meds: 19:35 gabapentin 100 mg oral cap 2 caps 3 times per day [Active]; clopidogrel 75 mg oral tab bb 1 tab once daily [Active]; VITAMIN B1 100 MG DAILY [Active]; amlodipine 10 mg tab 1 tab once daily [Active]; atorvastatin 80 mg oral tab 1 tab once daily [Active]; aspirin 81 mg Oral chew 1 tab once daily [Active]; lisinopril 10 mg Oral tab 1 tab once daily [Active]; ACETIC ACID TOPICAL [Active]; ibuprofen 200 mg Oral tab 2 tabs every 4-6 hours [Active]; naproxen sodium 220 mg Oral cap [Active]; Santyl 250 unit/gram Topical oint once daily [Active]; Centrum oral oral [Active]; - PMHx: 19:35 CHF; COPD; CVA; Myocardial infarction; Seizures; PVD; bb - PSHx: 19:35 AMPUTATIONS TO BILATERAL FEET; bb - Immunization history:: Adult Immunizations up to date. - Ebola Screening: : Patient negative for fever greater than or equal to 101.5 degrees Fahrenheit, and additional compatible Ebola Virus Disease symptoms Patient denies exposure to infectious person Patient denies travel to an Ebola-affected area in the 21 days before illness onset. - Social history:: Smoking status: Patient uses tobacco products, smokes two packs cigarettes per day. Patient/guardian denies using alcohol, street drugs. Screenin:25 Abuse screen: Denies threats or abuse. Denies injuries from another. Nutritional rv screening: No deficits noted. Tuberculosis screening: No symptoms or risk factors identified. Fall Risk None identified. Assessment: 19:24 General: Appears in no apparent distress. comfortable, Behavior is calm, cooperative. rv Pain: Complains of pain in left foot Pain currently is 4 out of 10 on a pain scale. Neuro: Level of Consciousness is awake, alert, obeys commands, Oriented to person, place, time, situation. Cardiovascular: Capillary refill < 3 seconds. Respiratory: Airway is patent. GI: No signs and/or symptoms were reported involving the gastrointestinal system. : No signs and/or symptoms were reported regarding the genitourinary system. EENT: No signs and/or symptoms were reported regarding the EENT system. Derm: Wound noted left foot. Musculoskeletal: Reports pain in left foot. 21:07 Reassessment: Patient appears in no apparent distress at this time. Patient and/or rv family updated on plan of care and expected duration. Pain level reassessed. Patient is alert, oriented x 3, equal unlabored respirations, skin warm/dry/pink. 22:54 Reassessment: Patient appears in no apparent distress at this time. Patient and/or rv family updated on plan of care and expected duration. Pain level reassessed. Patient is alert, oriented x 3, equal unlabored respirations, skin warm/dry/pink. Vital Signs: 19:35 BP 160 / 60; Pulse 78; Resp 18 S; Temp 99.1(O); Pulse Ox 96% on R/A; Weight 90.72 kg bb (R); Height 6 ft. 1 in. (185.42 cm) (R); Pain 4/10; 20:26 BP 153 / 81; Pulse 75; Resp 12; Pulse Ox 96% on R/A; rv 21:07 BP 156 / 77; Pulse 70; rv 22:53 BP 161 / 79; Pulse 68; rv 19:35 Body Mass Index 26.39 (90.72 kg, 185.42 cm) bb ED Course: 19:11 Patient arrived in ED. es 19:18 Aaron Meek PA is PHCP. cp 19:18 Aaron Pichardo MD is Attending Physician. cp 19:25 Triage completed. bb 19:26 Patient has correct armband on for positive identification. Bed in low position. Call rv light in reach. Side rails up X 1. Pulse ox on. NIBP on. 20:15 Inserted saline lock: 20 gauge in left antecubital area, using aseptic technique. rv 20:17 Wound Culture Sent. rv 20:23 EKG done, by ED staff, reviewed by Aaron BACA. jp3 20:36 XRAY Foot LEFT 2 View In Process Unspecified. EDMS 21:07 Awaiting radiology results. rv 21:12 Huy Glass MD is Hospitalizing Provider. cp 22:54 No provider procedures requiring assistance completed. Patient admitted, IV remains in rv place. intact. Administered Medications: 21:24 Drug: Zosyn 3.375 grams Route: IVPB; Infused Over: 60 mins; Site: left antecubital; rv 22:23 Follow up: IV Status: Completed infusion rv 21:38 Drug: fentaNYL (PF) 25 mcg Route: IVP; Site: left antecubital; rv 22:23 Follow up: Response: No adverse reaction rv 22:24 Drug: vancoMYCIN 1 grams Route: IVPB; Infused Over: 2 hrs; Site: left antecubital; rv 23:14 Follow up: IV Status: Infusion continued upon admission rv Point of Care Testing: Blood Glucose: 20:26 Blood Glucose: 78 mg/dL; rv Ranges: Outcome: 21:13 Decision to Hospitalize by Provider. cp 22:54 Admitted to Med/surg accompanied by tech, via wheelchair, room 212, with chart, Report rv called to ADRIÁN VO 22:54 Condition: good 22:54 Instructed on the need for admit. 23:15 Patient left the ED. rv Signatures: Dispatcher [employer] EDBibi Le Brenda, RN RN Aaron Zheng PA PA cp Chava Lux, RN RN rv Stan Thomas jp3
--- NOTE | 2018-02-17 21:14 | EDPHYS ---
Physician Documentation [facility] Name: Karlos Leblanc Age: 52 yrs Sex: Male : 1965 Arrival Date: 02/17/2018 Time: 19:11 Bed 27 Private MD: ED Physician Aaron Pichardo HPI: 02/17 20:00 This 52 yrs old Male presents to ER via Wheelchair with complaints of Foot cp infected. 20:00 The patient presents with cellulitis. cp 20:00 The complaints affect the left foot. Onset: The symptoms/episode began/occurred cp gradually. Associated signs and symptoms: Pertinent positives: swelling, warmth, open wound with drainage, Pertinent negatives: calf tenderness, fever. Severity of symptoms: in the emergency department the symptoms are unchanged, despite home interventions. Historical: - Allergies: 19:35 NKDA; bb - Home Meds: 19:35 gabapentin 100 mg oral cap 2 caps 3 times per day [Active]; clopidogrel 75 mg oral tab bb 1 tab once daily [Active]; VITAMIN B1 100 MG DAILY [Active]; amlodipine 10 mg tab 1 tab once daily [Active]; atorvastatin 80 mg oral tab 1 tab once daily [Active]; aspirin 81 mg Oral chew 1 tab once daily [Active]; lisinopril 10 mg Oral tab 1 tab once daily [Active]; ACETIC ACID TOPICAL [Active]; ibuprofen 200 mg Oral tab 2 tabs every 4-6 hours [Active]; naproxen sodium 220 mg Oral cap [Active]; Santyl 250 unit/gram Topical oint once daily [Active]; Centrum oral oral [Active]; - PMHx: 19:35 CHF; COPD; CVA; Myocardial infarction; Seizures; PVD; bb - PSHx: 19:35 AMPUTATIONS TO BILATERAL FEET; bb - Immunization history:: Adult Immunizations up to date. - Ebola Screening: : Patient negative for fever greater than or equal to 101.5 degrees Fahrenheit, and additional compatible Ebola Virus Disease symptoms Patient denies exposure to infectious person Patient denies travel to an Ebola-affected area in the 21 days before illness onset. - Social history:: Smoking status: Patient uses tobacco products, smokes two packs cigarettes per day. Patient/guardian denies using alcohol, street drugs. ROS: 20:05 Constitutional: Negative for body aches, chills, fever, poor PO intake. cp 20:05 Eyes: Negative for injury, pain, redness, and discharge. cp 20:05 Cardiovascular: Negative for chest pain, edema, palpitations. 20:05 Respiratory: Negative for cough, shortness of breath, wheezing. 20:05 Abdomen/GI: Negative for abdominal pain, nausea, vomiting, and diarrhea. 20:05 MS/extremity: Positive for erythema, pain, swelling, warmth, of the left foot, open wound. 20:05 Neuro: Negative for altered mental status, headache, weakness. 20:05 All other systems are negative. Exam: 20:10 Constitutional: The patient appears in no acute distress, alert, awake, cp non-diaphoretic, non-toxic, well developed, well nourished. 20:10 Head/Face: Normocephalic, atraumatic. cp 20:10 Eyes: Periorbital structures: appear normal, Conjunctiva: normal, no exudate, no injection, Sclera: no appreciated abnormality, Lids and lashes: appear normal, bilaterally. 20:10 ENT: External ear(s): are unremarkable, Nose: is normal, Mouth: Lips: moist, Oral mucosa: pink and intact, moist, Posterior pharynx: is normal, airway is patent, no erythema, no exudate, Voice: is normal. 20:10 Chest/axilla: Inspection: normal, Palpation: is normal, no crepitus, no tenderness. 20:10 Cardiovascular: Rate: normal, Rhythm: regular, Edema: is not appreciated, JVD: is not appreciated. 20:10 Respiratory: the patient does not display signs of respiratory distress, Respirations: normal, no use of accessory muscles, no retractions, no splinting, no tachypnea, labored breathing, is not present, Breath sounds: are clear throughout, no decreased breath sounds, no stridor, no wheezing. 20:10 Abdomen/GI: Exam negative for discomfort, distension, guarding, Inspection: abdomen appears normal. 20:10 Skin: cellulitis, that is moderate, on the left foot, noted open wound medial aspect left foot with amputated left great toe, mild colored drainage. 20:10 Neuro: Orientation: to person, place \T\ time. Mentation: lucid, able to follow commands, Cerebellar function: is grossly normal, Motor: moves all fours, strength is normal. 20:25 ECG was reviewed by the Attending Physician. Vital Signs: 19:35 BP 160 / 60; Pulse 78; Resp 18 S; Temp 99.1(O); Pulse Ox 96% on R/A; Weight 90.72 kg bb (R); Height 6 ft. 1 in. (185.42 cm) (R); Pain 4/10; 20:26 BP 153 / 81; Pulse 75; Resp 12; Pulse Ox 96% on R/A; rv 21:07 BP 156 / 77; Pulse 70; rv 22:53 BP 161 / 79; Pulse 68; rv 19:35 Body Mass Index 26.39 (90.72 kg, 185.42 cm) bb MDM: 19:18 Patient medically screened. cp 21:10 Data reviewed: vital signs, nurses notes, lab test result(s), EKG, radiologic studies, cp plain films, and as a result, I will admit patient. 21:11 Physician consultation: Huy Glass MD was called at 21:11, was contacted at 21:11, regarding admission, to the medical/surgical unit. patient's condition. 21:45 Physician consultation: Krish Burroughs MD was contacted at 21:40, regarding consult, patient's condition, and will see patient in inpatient room, tomorrow. 02/17 19:53 Order name: Wound Culture 02/17 19:53 Order name: Basic Metabolic Panel; Complete Time: 21:09 02/17 19:53 Order name: Blood Culture Adult (2) 02/17 19:53 Order name: CBC with Diff; Complete Time: 20:48 02/17 20:48 Interpretation: Normal except: RBC 4.14; HCT 39.2; BASO% 1.5. 02/17 19:53 Order name: Lactate; Complete Time: 21:09 02/17 19:53 Order name: LFT's; Complete Time: 21:09 02/17 19:53 Order name: Procalcitonin 02/17 19:53 Order name: Protime (+inr); Complete Time: 20:48 02/17 19:53 Order name: Ptt, Activated; Complete Time: 20:48 02/17 19:53 Order name: XRAY Foot LEFT 2 View 02/17 19:54 Order name: Wound Culture EDMO 02/17 20:56 Order name: Urine Dipstick--Ancillary (enter results) mw2 02/17 19:53 Order name: Accucheck; Complete Time: 20:26 cp 02/17 19:53 Order name: Cardiac monitoring; Complete Time: 20:17 cp 02/17 19:53 Order name: EKG - Nurse/Tech; Complete Time: 20:17 cp 02/17 19:53 Order name: IV Saline Lock - Large Bore; Complete Time: 20:17 cp 02/17 19:53 Order name: Labs collected and sent; Complete Time: 20:17 cp 02/17 19:53 Order name: O2 Per Protocol; Complete Time: 20:17 cp 02/17 19:53 Order name: O2 Sat Monitoring; Complete Time: 20:17 cp 02/17 19:53 Order name: Urine Dipstick-Ancillary (obtain specimen); Complete Time: 20:54 cp 02/17 19:53 Order name: Misc. Order: doppler pulse of left foot; Complete Time: 20:33 cp EC:25 Rate is 67 beats/min. Rhythm is regular. LA interval is normal. QRS interval is normal. cp QT interval is normal. Interpreted by me. Reviewed by me. Administered Medications: 21:24 Drug: Zosyn 3.375 grams Route: IVPB; Infused Over: 60 mins; Site: left antecubital; rv 22:23 Follow up: IV Status: Completed infusion rv 21:38 Drug: fentaNYL (PF) 25 mcg Route: IVP; Site: left antecubital; rv 22:23 Follow up: Response: No adverse reaction rv 22:24 Drug: vancoMYCIN 1 grams Route: IVPB; Infused Over: 2 hrs; Site: left antecubital; rv 23:14 Follow up: IV Status: Infusion continued upon admission rv Point of Care Testing: Blood Glucose: 20:26 Blood Glucose: 78 mg/dL; rv Ranges: Critical Glucose Levels:Adult <50 mg/dl or >400 mg/dl <40 mg/dl or >180 mg/dl Disposition: 02/18 07:10 Co-signature as Attending Physician, Aaron POSADAS I agree with the assessment and riya plan of care. Disposition: 02/17/18 21:13 Hospitalization ordered by Huy Glass for Inpatient Admission. Preliminary diagnosis is Cellulitis of left lower limb. - Bed requested for Telemetry/MedSurg (Inpatient). - Status is Inpatient Admission. rv - Condition is Stable. - Problem is an ongoing problem. - Symptoms have improved. UTI on Admission? No Signatures: Dispatcher [employer] EDTara Sanchez, RN RN Aaron Mercado MD MD cha Ballard, Brenda RN RN Aaron Zheng PA PA cp Vicente, Ronaldo RN RN rv Corrections: (The following items were deleted from the chart) 02/17 22:39 21:13 Hospitalization Ordered by Huy Glass MD for Inpatient Admission. Preliminary kl diagnosis is Cellulitis of left lower limb. Bed requested for Telemetry/MedSurg (Inpatient). Status is Inpatient Admission. Condition is Stable. Problem is an ongoing problem. Symptoms have improved. UTI on Admission? No. cp 23:15 22:39 02/17/2018 21:13 Hospitalization Ordered by Huy Glass MD for Inpatient rv Admission. Preliminary diagnosis is Cellulitis of left lower limb. Bed requested for Telemetry/MedSurg (Inpatient). Status is Inpatient Admission. Condition is Stable. Problem is an ongoing problem. Symptoms have improved. UTI on Admission? No. kl 02/18 02:04 02/16 20:00 This 52 yrs old Male presents to ER via Wheelchair with cp complaints of Foot infected. cp
[2018-02-17] MEDS ORDERED: VANCOMYCIN 1 GM/250 ML BAG ONE (21:21)
[2018-02-17] MEDS ORDERED: PIPER/TAZO/NS 3.375gm 3.375 GM/100 ML BAG ONE (21:21)
--- NOTE | 2018-02-17 21:32 | RAD REPORT ---
EXAM DESCRIPTION: RAD - Foot Left 2 View - 02/17/2018 8:38 pm CLINICAL HISTORY: open wound of foot COMPARISON: None FINDINGS: Soft tissue swelling is seen along the dorsum of the forefoot. Prominent larger wound is s een along the medial aspect of the forefoot. Underlying definitive evidence of osteomyelitis is not s een, however, early osteomyelitis may not be appreciable on plain radiograph. No acute fracture or fo reign body. Prominent calcaneal spurs.
[2018-02-17] MEDS ORDERED: FENTANYL CITR 100 MCG/2 ML ONE (21:39)
--- NOTE | 2018-02-17 22:11 | P.HP ---
Certification for Inpatient Patient admitted to: Observation With expected LOS: <2 Midnights Practitioner: I am a practitioner with admitting privileges, knowledge of patient current condition, hospital course, and medical plan of care. Services: Services provided to patient in accordance with Admission requirements found in Title 42 Section 412.3 of the Code of Federal Regulations Patient History Date of Service: 02/17/18 Reason for admission: Worsening nonhealing wound History of Present Illness: Mr Leblanc is a 52-year-old male with history of hypertension, coronary artery disease, tobacco abuse, bilateral feet amputation, last time he had great toe amputation in 10/2017, the wound was not healing requiring significant wound care. He has had VAC in place until 3 days ago which was removed since the wound has improved. However, have nurse came to see the patient today and found worsening appearance of the wound, it has yellowish/greenish secretion, increasing pain and swelling. There is no history of fever or chills. ER workup shows normal WBC count, normal procalcitonin and lactate. Allergies No Known Allergies Allergy (Verified 11/12/17 20:22) Home medications list reviewed: Yes Home Medications: Albuterol Sulfate [Proair Hfa] 8.5 gm IH TID PRN #1 hfa.aer.ad 11/15/17 Amlodipine Besylate 10 mg PO DAILY #30 tablet 11/15/17 Aspirin [Aspirin EC 81 MG] 81 mg PO DAILY #90 tablet.dr 11/15/17 Atorvastatin Calcium [Lipitor] 80 mg PO BEDTIME #30 tablet 11/15/17 Budesonide/Formoterol Fumarate [Symbicort 160-4.5 Mcg Inhaler] 2 puff IH BID #1 hfa.aer.ad 11/15/17 Clopidogrel Bisulfate [Plavix] 75 mg PO DAILY #30 tablet 11/15/17 Collagenase [Santyl Ointment*] 1 appl TOP DAILY #1 tube 11/15/17 Gabapentin [Neurontin*] 200 mg PO TID #180 cap 11/15/17 Lisinopril [Prinivil*] 10 mg PO DAILY #30 tab 11/15/17 Pantoprazole [Protonix Tab*] 40 mg PO DAILYAC #30 tab 11/15/17 Thiamine HCl [Vitamin B-1*] 100 mg PO DAILY #30 tablet 11/15/17 traMADol HCL [Ultram*] 50 mg PO TID PRN #20 tab 11/15/17 - Past Medical/Surgical History Diabetic: No -: HTN -: CHF, diastolic dysfunction -: COPD -: CAD -: Alcohol withdrawal seizure -: Right metatarsal amputation -: History of osteomyelitis -: IV drug use -: Alcohol abuse -: Tobacco abuse -: Rt great toe & 2nd toe amputated-Dec 2015 Psychosocial/ Personal History: Unable to be obtained - Social History Smoking Status: Current every day smoker Counseled patient to stop smoking for: less than 10 minutes Smoking therapy provided: Yes Patient receptive to therapy: No Alcohol use: No CD- Drugs: No Caffeine use: Yes Place of Residence: Home Review of Systems 10-point ROS is otherwise unremarkable Physical Examination - Physical Exam General: Alert, In no apparent distress HEENT: Atraumatic, PERRLA, Mucous membr. moist/pink, EOMI, Sclerae nonicteric Neck: Supple, 2+ carotid pulse no bruit, No LAD, Without JVD or thyroid abnormality Respiratory: Normal air movement, Other (coarse bilaterally) Cardiovascular: Regular rate/rhythm, Normal S1 S2 Gastrointestinal: Normal bowel sounds, No tenderness Musculoskeletal: No tenderness Integumentary: Skin lesion ( nonhealing chronic wound, after amputation of the great toe on the left foot.) Neurological: Normal speech, Normal strength at 5/5 x4 extr, Normal tone, Normal affect Lymphatics: No axilla or inguinal lymphadenopathy - Studies Laboratory Data (last 24 hrs) 02/17/18 20:15: PT 12.7 H, INR 1.08, APTT 41.2 H 02/17/18 20:15: WBC 9.9, Hgb 13.6, Hct 39.2 L, Plt Count 205 02/17/18 20:15: Sodium 137, Potassium 3.9, BUN 10, Creatinine 1.10, Glucose 83, Total Bilirubin 0.3, AST 12 L, ALT 17, Alkaline Phosphatase 113 Assessment and Plan - Problems (Diagnosis) (1) Pressure ulcer of left foot, stage 3 Current Visit: No Status: Acute (2) CAD (coronary artery disease) Onset Date: 03/15/17 Current Visit: No Status: Chronic Qualifiers: Coronary Disease-Associated Artery/Lesion type: unspecified vessel or lesion type [place] vs. transplanted heart: unspecified whether [place] or transplanted heart Associated angina: without angina Qualified Code(s): I25.10 - Atherosclerotic heart disease of [place] coronary artery without angina pectoris (3) COPD (chronic obstructive pulmonary disease) Onset Date: 03/15/17 Current Visit: No Status: Chronic Qualifiers: COPD type: chronic bronchitis Chronic bronchitis type: unspecified Qualified Code(s): J42 - Unspecified chronic bronchitis (4) Tobacco abuse Onset Date: 11/12/17 Current Visit: No Status: Chronic - Plan The patient will be admitted to the hospital to worsening nonhealing surgical wound, after application of the great toe. He has no sign of systemic infection , no fever, WBC within normal limits. The case has been discussed it with Dr. Burroughs, who recommended to admit the patient and start IV vancomycin and IV Zosyn empiric treatment. Consult wound care team. - Advance Directives Does patient have a Living Will: No Does patient have a Durable POA for Healthcare: No - Code Status/Comfort Care Code Status Assessed: Yes Code Status: Full Code
[2018-02-17] MEDS ORDERED: ONDANSETRON 4 MG/2 ML VIAL IV PRN (22:42)
[2018-02-17] MEDS ORDERED: VANCOMYCIN/NS 1 gm 1 GM/250 ML BAG IVPB SCH (22:42)
[2018-02-17] MEDS ORDERED: KETOROLAC 30 MG/ML INJ IV PRN (22:42)
[2018-02-17] MEDS ORDERED: ACETAMINOPHEN 500 MG TAB PO PRN (22:42)
[2018-02-17 23:26] VITALS: BMI 24.6
[2018-02-17] MEDS ORDERED: VANCOMYCIN 500 MG in NA CHLORIDE 0.9% 250 ML IV ONE (23:45)
[2018-02-18] MEDS ORDERED: NA CHLORIDE 0.9% 250 ML ONE (00:09)
[2018-02-18] MEDS ORDERED: VANCOMYCIN 500 MG/VIAL ONE (00:11)
[2018-02-18] MEDS: NA CHLORIDE 0.9% 1,000 ML IV SCH ×2 (01:07→10:11)
[2018-02-18] MEDS ORDERED: PIPER/TAZO/NS 3.375gm 3.375 GM/100 ML BAG IVPB SCH ×2 (04:00→09:00)
[2018-02-18] MEDS ORDERED: PIPER/TAZO/NS 3.375gm 3.375 GM/100 ML BAG ONE (04:14)
[2018-02-18 04:40] VITALS: TEMP 97.6
[2018-02-18 04:46] LABS: Absolute Lymphocytes (CBC) 1.8 K/uL (0.7-4.9); Absolute Monocytes 0.6 K/uL (0.1-1.3); Absolute Neutrophil 5.1 K/uL (1.8-8.0); Basophils % 0.7 % (0-1.3); Eosinophils % 2.3 % (0-4.4); Hematocrit 42.6 % (39.6-49.0); Lymphocytes % 23.4 % (15.3-44.8); MCH 32.5 pg (27.0-35.0); MPV 8.1 fL (7.6-11.3); Monocytes % 7.7 % (3.3-12.3); RBC Red Blood Cell Count 4.49 M/uL (4.33-5.43)
[2018-02-18 05:13] LABS: Magnesium 2.4 mg/dL (1.8-2.4); Potassium 4.3 mmol/L (3.5-5.1)
[2018-02-18] MEDS ORDERED: LORazepam 2 MG/ML VIAL ONE ×2 (07:17→07:24)
[2018-02-18] MEDS ORDERED: ZIPRASIDONE MESYLA 20 MG/VIAL IM ONE (07:20)
[2018-02-18] MEDS ORDERED: WATER FOR INJ,STERILE 10 ML ONE (07:21)
[2018-02-18] MEDS ORDERED: DIAZEPAM 10 MG/2 ML INJ SYRINGE ONE (07:35)
[2018-02-18] MEDS ORDERED: DIAZEPAM 10 MG/2 ML INJ SYRINGE IV PRN (07:40)
--- NOTE | 2018-02-18 08:08 | EKG ---
Test Date: 2018-02-17 Test Time: 20:16:34 [employer]: MARIELENA MEASUREMENT RESULTS: Intervals: Rate: 67 NJ: 148 QRSD: 88 QT: 400 QTc: 422 [place]: P: 54 NJ: 148 QRS: 23 T: 35 INTERPRETIVE STATEMENTS: Normal sinus rhythm Normal ECG Compared to ECG 04/16/2017 00:18:30 Sinus tachycardia no longer present ST (T wave) deviation no longer present Electronically Signed On 02-18-18 08:08:02 CDT by Parveen Perry
[2018-02-18 09:16] LABS: Barbiturates NEGATIVE (NEGATIVE); Benzodiazepines NEGATIVE (NEGATIVE); Cocaine NEGATIVE (NEGATIVE); METHAMPHETAM NEGATIVE (NEGATIVE); Methadone NEGATIVE (NEGATIVE); Opiates NEGATIVE (NEGATIVE); Phencyclidine NEGATIVE (NEGATIVE); THC Cannibis NEGATIVE (NEGATIVE)
[2018-02-18 10:54] VITALS: O2SAT 97
[2018-02-18] MEDS ORDERED: VANCOMYCIN 1.5 GM in NA CHLORIDE 0.9% 500 ML IV SCH ×3 (11:00)
[2018-02-18 11:48] VITALS: BP 150/74
--- OUTSIDE RECORDS SUMMARY | 2018-02-18 12:14 | XMS REPORT | Clinical Summary ---
:1965 [facility] Address [address] [place] [address] Phone Care Team Providers Name Role Phone [...] Leukocytosis 04/17/2017 Tongue laceration 04/17/2017 Status epilepticus (FORMERLY [facility]) 04/16/2017 Encounters Date Type Specialty Care Team Description 04/16/2017 - Hospital Encounter General Internal Jose Desouza Status epilepticus 04/21/2017 Medicine Shalini, (FORMERLY [facility]);Acute MD respiratory failure Danna, with hypoxia MD Roxana (FORMERLY [facility]);Acute encephalopathy;CODY (acute kidney injury) (FORMERLY [facility]);Acute kidney injury (FORMERLY [facility]);H/O ETOH abuse;Hypertension, essential;Laceration of tongue, subsequent encounter;Tetrahydro cannabinol (THC) use disorder, mild, abuse after 02/17/2017 Social History Tobacco Use Types Packs/Day Years Used Date Current Every Day Smoker 1 Smokeless Tobacco: Current User Tobacco Cessation: Ready to Quit: No; Counseling Given: Yes Sex Assigned at Date Recorded Not on file Last Filed Vital Signs Vital Sign Reading Time Taken Blood Pressure 133/63 04/21/2017 8:05 AM EVENT MGR Pulse 58 04/21/2017 8:05 AM EVENT MGR Temperature 36.8 C (98.2 F) 04/21/2017 8:05 AM EVENT MGR Respiratory Rate 18 04/21/2017 8:05 AM EVENT MGR Oxygen Saturation 98% 04/21/2017 8:05 AM EVENT MGR Inhaled Oxygen Concentration - - Weight 93.2 kg (205 lb 8 oz) 04/21/2017 5:00 AM EVENT MGR Height 185.4 cm (6' 1") 04/16/2017 8:00 PM EVENT MGR Body Mass Index 27.11 04/21/2017 5:00 AM EVENT MGR Plan of Treatment Not on file Results [...] FOR DIALYSIS PATIENTS. Specimen Performing Laboratory Blood [address] [address] Blood gas, arterial (04/20/2017 10:49 AM)Only the [...] Performing Laboratory Blood, Arterial - Arm, Right [address] [address] PTH, intact (04/20/2017 4:25 AM) Component Value Ref Range PTH 41.8 8.5 - 72.5 pg/mL Specimen Performing Laboratory Blood - Arm, Left [address] [address] STOOL PATH CHARGE (04/19/2017 12:58 PM) Component Value Ref Range Pathogen exam charged Done Specimen Performing Laboratory Stool [address] [address] Shiga Toxin Screen (04/19/2017 12:58 PM) Component Value Ref Range Shiga toxin 1 Not detected Not detected Shiga toxin 2 Not detected Not detected Specimen Performing Laboratory Stool [address] [address] Clostridium difficile Toxin PCR (04/19/2017 12:58 PM) Component Value Ref Range C.Diff Toxin, PCR Not Detected Not Detected Specimen Performing Laboratory Stool [address] [address] Narrative This qualitative real-time polymerase chain reaction [...] (04/19/2017 12:58 PM) Specimen Performing Laboratory Stool [address] [address] Narrative See Scanned Results. Stool culture + Shiga toxin (04/19/2017 12:58 PM) Component Value Ref Range Result No Salmonella, Shigella or Campylobacter isolated Specimen Performing Laboratory Stool [address] [address] Sodium, random urine (04/19/2017 6:13 AM)Only the most recent of2 resultswithin the time period is included. Component Value Ref Range Sodium Urine 65 meq/L Specimen Performing Laboratory Urine [address] [address] Narrative Reference Range: No Normals Prothrombin time/INR (04/19/2017 5:37 AM)Only the most recent of2 resultswithin the time period is included. Component Value Ref Range Protime 14.5 11.7 - 14.7 seconds INR 1.1 <=5.9 Specimen Performing Laboratory Blood - Arm, Right [address] [address] Narrative RECOMMENDED COUMADIN/WARFARIN INR THERAPY RANGES STANDARD [...] Specimen Performing Laboratory Urine - Urine, Voided [address] [address] Narrative DRUGCUTOFF CONC. Cocaine 300 ng/mL Hlqjhgdasge46 ng/mL Biatwhepsbmbcn821 ng/mL Barbiturate 200 ng/mL Ptygxzdhaziec18 ng/mL Epijtv252 ng/mL Methadone 300 ng/mL Amphetamine/ 1000 ng/mL Methamphetamine Oxycodone 300 ng/mL This assay provides an unconfirmed qualitative test result for the clinical management of patients in emergency situations. Chain of custody not maintained. Some ykov-fxm-gmxvapy medications, as well as adulterants, may cause [...] 1 % Specimen Performing Laboratory Blood [facility] [address] [address] CBC with platelet count + automated diff (04/18/2017 6:18 AM)Only the most recent of3 resultswithin the time period is included. Specimen Performing Laboratory Blood Narrative The following orders were created for panel order CBC with platelet count + automated diff. Procedure Abnormality Status --------- ------ CBC with platelet count ...[[id number]]AbnormalFinal result Please view results for these tests on the individual orders. US renal complete (04/17/2017 9:57 PM) Specimen Performing Laboratory [facility] Narrative FINAL REPORT Renal ultrasound. Clinical History: [...] MD Report Verified Date/Time:04/17/2017 22:34:25 Reading Location: [facility] B1 C013W Consult Reading Room Procedure Note Interface, External Ris In - 04/17/2017 10:36 PM EVENT MGR FINAL REPORT Renal ultrasound. Clinical History: acute [...] Report Verified Date/Time: 04/17/2017 22:34:25 Reading Location: [facility] C013W Consult Reading Room brain without IV contrast (04/17/2017 6:31 PM) Specimen Performing Laboratory Lovely RIS Narrative FINAL REPORT MRI Brain without [...] MD Report Verified Date/Time:04/17/2017 19:18:34 Reading Location: [facility] Radiology Reading Room Procedure Note Interface, External Ris In - 04/17/2017 7:20 PM EVENT MGR FINAL REPORT MRI Brain without contrast Clinical [...] Report Verified Date/Time: 04/17/2017 19:18:34 Reading Location: [facility] Radiology Reading Room Creatine Kinase (CK) (04/17/2017 9:23 AM) Component Value Ref Range Total CK 136 29 - 200 U/L Specimen Performing Laboratory Blood - Arm, [address] [address] Urea Nitrogen, random urine (04/17/2017 9:08 AM) Component Value Ref Range Urea Nitrogen, Ur 172 mg/dL Specimen Performing Laboratory Urine - Urine, [address] [address] Narrative Reference Range: No Normals Myoglobin, random urine (04/17/2017 9:08 AM) Component Value Ref Range Myoglobin, Urine 32 (H) <28 mcg/L Comment: This test was developed and its analytical performance characteristics have been determined by [facility]. It has not been cleared or approved by the [place] Food and Drug Administration. This assay has been validated pursuant to the CLIA regulations and is used for clinical purposes. Specimen Performing Laboratory Urine - Urine, [place] [facility] [address] [place] [address] Narrative Performing Lab *[facility], [address] [place] [address] B Aime POSADAS, FCAP Creatinine, random urine (04/17/2017 9:08 AM) Component Value Ref Range Creatinine, Ur 69.7 mg/dL Specimen Performing Laboratory Urine - Urine, [address] [address] Narrative Reference Range: No Normals Urinalysis w/Microscopic (04/17/2017 9:08 AM)Only the most recent of2 resultswithin the time period is included. Component Value Ref Range Color, UA Light Yellow Clarity, UA Clear Specific Larsen, UA 1.006 1.001 - 1.035 pH, UA [...] Uric Acid Crystals Rare Specimen Source Urine, [place] Specimen Performing Laboratory Urine - Urine, [address] [address] Eosinophil smear (04/17/2017 9:08 AM) Component Value Ref Range Eosinophil Smear No EOS seen No EOS seen Specimen Performing Laboratory Urine - Urine, [address] [address] EEG monitoring with video recording each 24 hours (04/17/2017 7:07 AM)Only the most recent of2 resultswithin the time period is included. Specimen Performing Laboratory GE RIS Narrative DATE OF TEST: 04/17/2017 DATE OF REPORT 04/17/2017 ACC: [id number] EE Start time: 16:42 Stop time: 18:44 ICD-10: R56.9 CPT Code: 60319 HISTORY: 51 y/o woman with history of [...] External Ris In - 04/17/2017 6:01 PM EVENT MGR DATE OF TEST: 04/17/2017 DATE OF REPORT 04/17/2017 ACC: [id number] EE Start time: 16:42 Stop time: 18:44 ICD-10: R56.9 CPT Code: 89494 HISTORY: 51 y/o woman with history of [...] 366 ms QTC Calculation(Bazett) 467 ms P [place] 43 degrees R [place] 0 degrees T [place] 31 degrees Normal sinus rhythm Normal ECG No previous ECGs available Confirmed by MD Wilson Roberto ([id number]) on 04/16/2017 5:38:41 PM Procedure Note Interface, External Ris In - 04/16/2017 5:38 PM EVENT MGR Ventricular Rate 98 BPM Atrial Rate 98 BPM P-R Interval 154 ms QRS Duration 78 ms Q-T Interval 366 ms QTC Calculation(Bazett) 467 ms P [place] 43 degrees R [place] 0 degrees T [place] 31 degrees Normal sinus rhythm Normal ECG [...] MD Report Verified Date/Time:04/16/2017 09:16:32 Reading Location: [facility] Radiology Reading Room Procedure Note Interface, External Ris In - 04/16/2017 9:18 AM EVENT MGR FINAL REPORT Chest two views AP 04/16/2017 9:15 AM CLINICAL INDICATION: intubated COMPARISON: None available IMPRESSION: Support hardware is in satisfactory radiographic position. Cardiomediastinal contours are within normal limits. There is central pulmonary vasculature congestion without remarkable peripheral edema. There are streaky foci of atelectasis bilaterally. Superimposed pneumonia should be excluded clinically. Signed: Rogerio Hernandez MD Report Verified Date/Time: 04/16/2017 09:16:32 Reading Location: [facility] Radiology Reading Room AWAKE/ASLEEP (04/16/2017 9:08 AM) Specimen Performing Laboratory GE RIS Narrative DATE OF TEST: 04/16/2017 DATE OF REPORT 04/16/2017 ACC: [id number] EE Start time: 08:21 Stop time: 08:42 ICD-10: R56.9 CPT Code: 95880 HISTORY: 51 y/o woman with history of [...] External Ris In - 04/16/2017 1:27 PM EVENT MGR DATE OF TEST: 04/16/2017 DATE OF REPORT 04/16/2017 ACC: [id number] EE Start time: 08:21 Stop time: 08:42 ICD-10: R56.9 CPT Code: 87962 HISTORY: 51 y/o woman with history of [...] Folate 8.0 >=7.0 ng/mL Specimen Performing Laboratory [address] [address] Vitamin B12 (04/16/2017 5:23 AM) Component Value Ref Range Vitamin B12 450 213 - 816 pg/mL Specimen Performing Laboratory Blood [address] [address] Urine culture (04/16/2017 4:49 AM) Component Value Ref Range Result No growth Specimen Performing Laboratory Urine - Urine, [place] [address] [address] Blood culture (04/16/2017 4:48 AM) Component Value Ref Range Result No growth in 5 days Specimen Performing Laboratory Blood - Arm, Right [address] [address] Phosphorus (04/16/2017 4:47 AM) Component Value Ref Range Phosphorus 3.0Comment: Specimen moderately hemolyzed 2.3 - 4.7 mg/dL Specimen Performing Laboratory [address] [address] Magnesium (04/16/2017 4:47 AM) Component Value Ref Range Magnesium 3.0 (H)Comment: Specimen moderately hemolyzed 1.6 - 2.6 mg/dL Specimen Performing Laboratory [address] [address] Hepatic function panel (04/16/2017 4:47 AM) Component [...] 55 U/L Specimen Performing Laboratory Blood [facility] [address] [address] after 02/17/2017
--- OUTSIDE RECORDS SUMMARY | 2018-02-18 12:17 | XMS REPORT | Continuity of Care Document ---
:1965 Author Organization Interface Problems Problem Status Onset Classification Date Comments Source Date Reported ANEMIA Active 04/04/20 The 16 [facility] Discharge 03/14/20 03/17/2016 The Diagnosis: Acute 16 [facility] on chronic renal failure Discharge 03/14/20 03/17/2016 The Diagnosis: Anemia 16 [facility] Discharge 03/14/20 03/17/2016 The Diagnosis: [address] [place] [address] Post-operative pain Discharge 03/14/20 03/17/2016 The Diagnosis: Acute 16 [facility] hypokalemia OTHER Active 03/13/20 The 16 [facility] FOOT GANGRENE Active 01/31/20 The 16 [facility] LEFT FOOT SORES Active 01/31/20 The 16 [facility] Discharge 02/17/20 02/19/2015 The Diagnosis: 15 [facility] Hyperlipidemia Discharge 02/17/20 02/19/2015 The Diagnosis: 15 [facility] Hypertension Discharge 02/17/20 02/19/2015 The Diagnosis: Angina 15 [facility] pectoris CHEST PAIN Active 02/16/20 The 15 [facility] CP Active 02/16/20 The 15 [facility] Discharge 02/10/20 02/12/2015 The Diagnosis: Wrist 15 [facility] sprain LEFT WRIST PAIN Active 02/10/20 The 15 [facility] Discharge 01/24/20 01/26/2015 The Diagnosis: 15 [facility] Epileptic seizure, generalized Discharge 01/24/20 01/26/2015 The Diagnosis: 15 [facility] Cerebral seizure AMS Active 01/24/20 The 15 [facility] WOUND INFECTION V Active 10/21/19 The NECFAS;CHRONIC 14 [facility] OSTEOMY Acute Active Problem 04/08/2016 The osteomyelitis [facility] CHF - Congestive Active Problem 04/08/2016 The heart failure [facility] HTN (<span Active Problem 04/08/2016 The ID="[id number]"> [facility] Confirmed</span>) Bronchitis Active Problem 04/08/2016 [place] COPD Active Problem 04/08/2016 [place] Nose bleed Active Problem 04/08/2016 [place] Seizure Active Problem 04/08/2016 [place] H/O candidiasis Active Problem 04/08/2016 [place] H/O amputation of Active Problem 04/08/2016 The lesser toe [facility] Hx of peripheral Active Problem 04/08/2016 The vascular disease [facility] BPH (<span Active Problem 04/08/2016 The ID="[id number]" [facility] >Confirmed</span> ) CELLULITIS OF Active The FOOT [facility] AC Active MH The OSTEOMYELITIS-UNS [facility] PEC CHEST PAIN NOS Active [place] GANGRENE, NOT Active The ELSEWHERE [facility] CLASSIFIED ANEMIA, Active The UNSPECIFIED [facility] Medications Medication Details Route Status Patient Ordering Order Source Instructions Provider Date Sodium Chloride IVPB, 150 Active The 0.9% IV ml/hr, PRN, 2015 [facility] Start date: 04/05/16 8:00:00 [employer], Duration: 30, 1,000 ml EPINEPHrine 0.5 mg, 0.5 Active The mL, Route: 2015 [facility] IVP, Drug form: INJ, PRN, PRN Other -See Comment, Start date: 04/05/16 7:22:00 [employer], Duration: 30 day, Stop date: 05/05/16 7:21:00 CSTNotes: MEDICATION WASTE Product Size: 1 mg Product Wasted: ___ mg Solu-CORTEF 100 mg, 2 mL, Active The Route: IVP2015 [facility] Drug form: PDR/INJ, PRN, PRN Other -See Comment, Start date: 04/05/16 7:22:00 [employer], Duration: 30 day, Stop date: 05/05/16 7:21:00 CSTNotes: (Same as: Solu-CORTEF) Benadryl 50 mg, 1 mL, Active The Route: IVP, 2015 [facility] Drug form: INJ, PRN, PRN Other -See Comment, Start date: 04/05/16 7:22:00 [employer], Duration: 30 day, Stop date: 05/05/16 7:21:00 CSTNotes: (Same as: Benadryl) Sodium Chloride IV, 0 ml/hr, Active The 0.9% IV PRN, PRN Blood 2015 [facility] Transfusion, Start date: 04/05/16 7:21:00 [employer], Duration: 30, 250 ml heparin flush 500 unit, 5 Active The mL, Route: 2015 [facility] IVP, Drug form: SOLN, PRN, PRN Line Flush, Start date: 04/05/16 7:21:00 [employer], Duration: 30 day, Stop date: 05/05/16 7:20:00 CSTNotes: (Same as: Heparin Lock Flush) BD Normal Saline 20 mL, Route: Active The Flush IVP, Drug 2015 [facility] Form: INJ, PRN, PRN Line Flush, Start date: 04/05/16 7:21:00 [employer], Duration: 30 day, Stop date: 05/05/16 7:20:00 CSTNotes: (Same as: BD Posiflush) Benadryl 25 mg, 0.5 mL, Active The Route: IVP, 2015 [facility] Drug form: INJ, Before Transfusion, PRN Blood Transfusion, Start date: 04/05/16 7:21:00 [employer], Duration: 30 day, Stop date: 05/05/16 7:20:00 CSTNotes: (Same as: Benadryl) Tylenol 650 mg, 2 tab, Active The Route: PO, 2015 [facility] Drug form: TAB, Before Transfusion, PRN Blood Transfusion, Start date: 04/05/16 7:20:00 [employer], Duration: 30 day, Stop date: 05/05/16 7:19:00 CSTNotes: Do not exceed 4 gm/day. (Same as: Tylenol) Acetaminophen 325 1 tab, Route: Inactive The MG / Hydrocodone PO, Drug Form: 2015 [facility] Bitartrate 5 MG TAB, Dosing Oral Tablet [[place] Weight 98.636, 5/325] kg, ONCE, STAT, Start date: 03/14/16 6:34:00 CDT, Stop date: 03/14/16 6:34:00 CDTNotes: (Same as: [place] 325/5) Do not exceed 4gm/day of acetaminophen. Acetaminophen 300 1 tab, PO, No Longer The MG / Codeine Q4H, PRN Pain, Active 2015 [facility] Phosphate 30 MG X 2 day, # 12 Oral Tablet tab, 0 [Tylenol with Refill(s) Codeine #3] Zofran 4 mg, 2 mL, No Longer The Route: IVP, Active 2015 [facility] Drug form: INJ, ONCE, Dosing Weight 98.636, kg, Priority: STAT, Start date: 03/13/16 23:18:00 CDT, Stop date: 03/13/16 23:18:00 CDTNotes: (Same as: Zofran) MEDICATION WASTE Product Size: 4 mg Product Wasted: ___ mg Dilaudid 0.5 mg, 0.5 No Longer The mL, Route: Active 2015 [facility] IVP, Drug form: INJ, ONCE, Dosing Weight 98.636, kg, Priority: STAT, Start date: 03/13/16 23:18:00 CDT, Stop date: 03/13/16 23:18:00 CDTNotes: Same as: Dilaudid Sodium Chloride 500 mL, 500 No Longer The 0.154 MEQ/ML ml/hr, Infuse Active 2015 [facility] Injectable Over: 1 hr, Solution Route: IV, 500, Drug form: INJ, ONCE, Priority: STAT, Dosing Weight 98.636 kg, Start date: 03/13/16 23:18:00 CDT, Duration: 1 doses or times, Stop date: 03/13/16 23:18:00 CDT Oxycodone 15 mg=3 tab, Active The Hydrochloride 5 MG PO, Q4H, PRN 2015 [facility] Oral Tablet Pain Score 7-10, 0 Refill(s) Oxycodone 15 mg, 3 tab, Inactive The Hydrochloride 5 MG Route: PO, 2015 [facility] Oral Tablet Drug form: TAB, Q4H, Dosing Weight 96.023, kg, PRN Pain Score 7-10, Start date: 02/18/16 8:43:00 CDT, Duration: 30 day, Stop date: 03/19/16 8:42:00 CDTNotes: (Same as: Roxicodone) Ceftriaxone 2 gm, Route: No Longer The IVPB, [id number], Active 2015 [facility] Dosing Weight 96.023, kg, Start date: 02/17/16 15:00:00 CDT, Duration: 30 day, Stop date: 03/17/16 15:00:00 CDTNotes: (Same As: Rocephin). Use with 100 mL NS and infuse over 30 min MEDICATION WASTE Product Size: 2000 mg Product Wasted: ___ mg Albuterol 0.83 NEB, PRN, PRN Active The MG/ML Inhalant Respiratory 2015 [facility] Solution Protocol, 0 Refill(s) chlorhexidine 1 appl, BATHE, Active The gluconate 40 MG/ML Q-M-W-F, 0 2015 [facility] Medicated Liquid Refill(s) Soap tamsulosin 0.4 mg 0.4 mg=1 cap, Active The oral capsule PO, After 2015 [facility] Dinner, 0 Refill(s) fluconazole 100 mg 200 mg=2 tab, Active The oral tablet PO, [id number], 0 2015 [facility] Refill(s) pantoprazole 40 mg 40 mg=1 tab, Active The oral enteric PO, Before 2015 [facility] coated tablet Breakfast, 0 Refill(s) Acetaminophen 325 1 tab, PO, Active The MG / Hydrocodone Q4H, PRN Pain 2015 [facility] Bitartrate 5 MG Score 1-3, 0 Oral Tablet Refill(s) cefTRIAXone + 2 gm, Route: No Longer The sodium chloride IVPB, [id number], Active 2015 [facility] 0.9% INJ 100 mL Dosing Weight 96.023, kg, Start date: 02/15/16 18:00:00 CDT, Duration: 2 day, Stop date: 02/16/16 18:00:00 CDTNotes: (Same As: Rocephin). Use with 100 mL NS and infuse over 30 min MEDICATION WASTE Product Size: 2000 mg Product Wasted: ___ mg Flomax 0.4 mg, 1 cap, No Longer The Route: PO, Active 2015 [facility] Drug form: CAP, After Dinner, Dosing Weight 96.023, kg, Start date: 02/13/16 17:00:00 CDT, Duration: 30 day, Stop date: 03/13/16 17:00:00 CDTNotes: (Same As: Flomax) "Do Not Crush" vancomycin + 1,000 mg, No Longer The sodium chloride Route: IVPB, Active [place] 0.9% INJ 250 mL Q24H, Start date: 02/13/16 6:00:00 CDT, Duration: 30 day, Stop date: 03/13/16 6:00:00 CDTNotes: TIME CRITICAL MEDICATION (Same As: Vancocin) Infusion rate 2001 mg: infuse over 2.5 hours MEDICATION WASTE Product Size: 1000 mg Product Wasted: ___ mg Fluconazole 200 mg, 2 tab, No Longer The Route: PO, Active 2015 [facility] Drug form: TAB, [id number], Dosing Weight 96.023, kg, Start date: 02/12/16 16:00:00 CDT, Duration: 30 day, Stop date: 03/12/16 16:00:00 CDTNotes: (Same as: Diflucan) Dilaudid 1.5 mg, 0.75 No Longer The mL, Route: Active 2015 [facility] IVP, Drug form: INJ, Q4H, Dosing Weight 96.023, kg, PRN Pain Score 7-10, Start date: 02/12/16 14:19:00 CDT, Stop date: 03/13/16 14:18:00 CDTNotes: Same as: Dilaudid gabapentin 600 mg, 2 cap, No Longer The Route: PO, Active 2015 [facility] Drug form: CAP, TID, Dosing Weight 97.273, kg, Start date: 02/12/16 13:00:00 CDT, Duration: 30 day, Stop date: 03/13/16 9:00:00 CDTNotes: (Same as: Neurontin) Naloxone 0.4 mg, 1 mL, Inactive The Route: IVP, 2015 [facility] Drug form: INJ, Q2MIN, Dosing Weight 96.023, kg, PRN Narcotic Reversal, Start date: 02/12/16 9:59:00 CDT, Duration: 8 doses or times, Stop date: Limited # of timesNotes: Same as Narcan Lorazepam 0.5 mg, 0.25 Inactive The mL, Route: 2015 [facility] IVP, Drug form: INJ, Q20Min, Dosing Weight 96.023, kg, PRN Anxiety, Start date: 02/12/16 9:59:00 CDT, Duration: 3 doses or times, Stop date: Limited # of timesNotes: (Same as: Ativan) Ondansetron 4 mg, Route: Inactive The IVP, ONCE, 2015 [facility] Dosing Weight 96.023, kg, PRN Nausea & Vomiting, Start date: 02/12/16 9:59:00 CDT Glycopyrrolate 0.2 mg, 1 mL, Inactive The Route: IVP, 2015 [facility] Drug form: INJ, Q5Min, Dosing Weight 96.023, kg, PRN Bradycardia, Start date: 02/12/16 9:59:00 CDT, Duration: 3 doses or times, Stop date: Limited # of timesNotes: (Same as: [place]) Flumazenil 0.2 mg, 2 mL, Inactive The Route: IVP, 2015 [facility] Drug form: INJ, PRN, Dosing Weight 96.023, kg, PRN Benzodiazepine Reversal, Initial dose, Start date: 02/12/16 9:59:00 CDT, Duration: 30 day, Stop date: 03/13/16 9:58:00 CDTNotes: (Same as: Romazicon) Fentanyl 25 microgram, Inactive The 0.5 mL, Route: 2015 [facility] IVP, Drug form: INJ, Q5Min, Dosing Weight 96.023, kg, PRN Pain Score 4-6, Start date: 02/12/16 9:59:00 CDT, Duration: 4 doses or times, Stop date: Limited # of timesNotes: (Same as: Sublimaze) Preservative free. Hydralazine 10 mg, 0.5 mL, Inactive The Route: IVP, 2015 [facility] Drug form: INJ, Q20Min, Dosing Weight 96.023, kg, PRN Elevated BP, Start date: 02/12/16 9:59:00 CDT, Duration: 2 doses or times, Stop date: Limited # of timesNotes: (Same as: Apresoline) Push over 5 minutes Hydromorphone 0.5 mg, 0.5 Inactive The mL, Route: 2015 [facility] IVP, Drug form: INJ, Q5Min, Dosing Weight 96.023, kg, PRN Pain Score 7-10, Start date: 02/12/16 9:59:00 CDT, Duration: 4 doses or times, Stop date: Limited # of timesNotes: Same as: Dilaudid Labetalol 10 mg, 2 mL, Inactive The Route: IVP, 2015 [facility] Drug form: INJ, Q5Min, Dosing Weight 96.023, kg, PRN Elevated BP, Start date: 02/12/16 9:59:00 CDT, Duration: 5 doses or times, Stop date: Limited # of times fentaNYL (ANES) Route: IV, Inactive The Drug form: 2015 [facility] INJ, ONCE, Stop date: 02/12/16 8:40:00 CDT propofol (ANES) Route: IV, Inactive The Drug form: 2015 [facility] INJ, ONCE, Stop date: 02/12/16 8:40:00 CDT lidocaine (ANES) Route: IV, Inactive The Drug form: 2015 [facility] INJ, ONCE, Stop date: 02/12/16 8:40:00 CDT LR 1000 mL INJ Route: IV, Inactive The (ANES) Total Volume: 2015 [facility] 1,000, Start date: 02/12/16 7:55:00 CDT, Stop date: 02/12/16 8:55:00 CDT Ceftriaxone 2 gm, Route: No Longer The IVPB, [id number], Active 2015 [facility] Dosing Weight 96.023, kg, Start date: 02/11/16 13:00:00 CDT, Duration: 5 day, Stop date: 02/15/16 13:00:00 CDTNotes: (Same As: Rocephin). Use with 100 mL NS and infuse over 30 min MEDICATION WASTE Product Size: 2000 mg Product Wasted: ___ mg Dilaudid 1 mg, 1 mL, No Longer The Route: IVP, Active 2015 [facility] Drug form: INJ, Q6H, Dosing Weight 96.023, kg, PRN Pain Score 7-10, Start date: 02/11/16 8:37:00 CDT, Duration: 30 day, Stop date: 03/12/16 8:36:00 CDTNotes: Same as: Dilaudid vancomycin 750 mg, 150 No Longer The mL, Route: Active 2015 [facility] IVPB, Drug form: INJ, Q24H, Start date: 02/11/16 6:00:00 CDT, Duration: 30 day, Stop date: 03/11/16 6:00:00 CDTNotes: TIME CRITICAL MEDICATION Same as: Vancocin Infusion rate 2000 mg: infuse over 2.5 hours metoprolol 50 mg, 1 tab, No Longer The Route: PO, Active 2015 [facility] Drug form: ERTAB, Daily, Start date: 02/10/16 9:00:00 CDT, Duration: 30 day, Stop date: 03/10/16 9:00:00 CDTNotes: (Same as: Toprol XL) May split tab, but do not crush. Alprazolam 1 MG 1 mg, 1 tab, No Longer The Oral Tablet Route: PO, Active 2015 [facility] [Xanax] Drug form: TAB, Q12H, Dosing Weight 96.023, kg, PRN Anxiety, Start date: 02/10/16 8:19:00 CDT, Duration: 30 day, Stop date: 03/11/16 8:18:00 CDTNotes: With food or milk (Same as: Xanax) vancomycin 750 mg, 150 Inactive The mL, Route: 2015 [facility] IVPB, Drug form: INJ, ONCE, Start date: 02/10/16 5:00:00 CDT, Stop date: 02/10/16 5:00:00 CDTNotes: TIME CRITICAL MEDICATION Same as: Vancocin Infusion rate 2001 mg: infuse over 2.5 hours Anoro 62.5mcg/25 Anoro No Longer The mcg 62.5mcg/25 Active 2015 [facility] mcg, 1 puff, Route: INHALATION, RBID, 02/09/16 20:00:00 CDT, Duration: 30 day, Stop date: 03/10/16 8:00:00 CDT ketOROLAC 30 mg/mL 60 mg, Route: Inactive The injectable IVP, Drug 2015 [facility] solution form: INJ, ONCE, Dosing Weight 96.023, kg, Start date: 02/09/16 17:40:00 CDT, Duration: 1 doses or times, Stop date: 02/09/16 17:40:00 CDT Vancomycin Dosing Vancomycin No Longer The per RPh Dosing per Active 2015 [facility], [facility] Drug form: MISC, Route: MISC, PRN, PRN Other -See Comment, 02/09/16 14:51:00 CDT, Duration: 30 day, Stop date: 03/10/16 14:50:00 CDT Dilaudid 1 mg, 1 mL, No Longer The Route: IVP, Active 2015 [facility] Drug form: INJ, Q4H, Dosing Weight 96.023, kg, PRN Pain Score 7-10, Start date: 02/09/16 13:01:00 CDT, Duration: 30 day, Stop date: 03/10/16 13:00:00 CDTNotes: Same as: Dilaudid Sodium Chloride 500 mL, 500 Inactive The 0.154 MEQ/ML ml/hr, Infuse 2015 [facility] Injectable Over: 1 hr, Solution Route: IV, 500, Drug form: INJ, ONCE, Priority: STAT, Dosing Weight 96.023 kg, Start date: 02/09/16 12:59:00 CDT, Duration: 1 doses or times, Stop date: 02/09/16 12:59:00 CDT pantoprazole 40 mg, 1 tab, No Longer The Route: PO, Active 2015 [facility] Drug form: ECTAB, Before Breakfast, Dosing Weight 96.023, kg, Start date: 02/09/16 9:00:00 CDT, Stop date: 03/09/16 7:30:00 CDTNotes: Tablet should not be chewed or crushed. (Same as: Protonix) chlorhexidine 1 appl, Route: No Longer The gluconate 40 MG/ML BATHE, Active 2015 [facility] Medicated Liquid Q-M-W-F, Drug Soap form: SOAP, Start date: 02/09/16 9:00:00 CDT, Duration: 30 day, Stop date: 03/08/16 9:00:00 CDTNotes: (Same As: M[place]) Simvastatin 20 mg, 1 tab, No Longer The Route: PO, Active 2015 [facility] Drug form: TAB, Bedtime, Dosing Weight 96.023, kg, Start date: 02/08/16 21:00:00 CDT, Duration: 30 day, Stop date: 03/08/16 21:00:00 CDTNotes: (Same as: Zocor) Cefuroxime 1.5 gm, Route: No Longer The IVPB, [id number], Active 2015 [facility] [place] Dosing Weight 96.023, kg, Start date: 02/08/16 21:00:00 CDT, Duration: 3 doses or times, Stop date: 02/09/16 13:00:00 CDT Neutra-Phos 2 pkt, Route: No Longer The PO, Drug Form: Active 2015 [facility] PDR/REC, Dosing Weight 96.023, kg, PRN, PRN Abnormal Lab Result, FOR ICU USE ONLY, Start date: 02/08/16 20:04:00 CDT, Duration: 30 day, Stop date: 03/09/16 20:03:00 CDTNotes: Same as: Phos-Nak Mix 1 packet with 75 mL water or juice. Each packet has 160mg of sodium, 280mg of potassium, and 250mg of phosphorus Non-Formulary Item potassium 45 mmol, 15 No Longer The phosphate + sodium mL, Route: Active 2015 [facility] chloride 0.9% 500 IVPB, Drug ml INJ 500 mL form: INJ, PRN, Dosing Weight 96.023, kg, PRN Abnormal Lab Result, Start date: 02/08/16 20:04:00 CDT, Duration: 30 day, Stop date: 03/09/16 20:03:00 CDT, FOR ICU USE ONLYNotes: (Same as: K Phosphate.) 1 mMol phoshate has 1.47 mEq potassium Infuse over 4 hours potassium 30 mmol, 10 No Longer The phosphate + sodium mL, Route: Active 2015 [facility] chloride 0.9% INJ IVPB, PRN, 250 mL Dosing Weight 96.023, kg, PRN Abnormal Lab Result, Start date: 02/08/16 20:04:00 CDT, Duration: 30 day, Stop date: 03/09/16 20:03:00 CDT, FOR ICU USE ONLYNotes: (Same as: K Phosphate.) 1 mMol phoshate has 1.47 mEq potassium Infuse over 4 hours Magnesium Oxide 800 mg, 2 tab, No Longer The Route: PO, Active 2015 [facility] Drug form: TAB, PRN, Dosing Weight 96.023, kg, PRN Abnormal Lab Result, FOR ICU USE ONLY, Start date: 02/08/16 20:04:00 CDT, Duration: 30 day, Stop date: 03/09/16 20:03:00 CDTNotes: (Same as: Mag-Ox 400) Magnesium oxide [id number] elemental magnesium Dose=____mg magnesium oxide (___mg elemental magnesium) Magnesium Sulfate 2 gm, 50 mL, No Longer The Route: IVPB, Active 2015 [facility] Drug form: INJ, PRN, Dosing Weight 96.023, kg, PRN Abnormal Lab Result, Start date: 02/08/16 20:04:00 CDT, Duration: 30 day, Stop date: 03/09/16 20:03:00 CDT, FOR ICU USE ONLYNotes: WASTE: F/P - Sink; E - Municipal Trash Bin potassium chloride 20 mEq, 15 mL, No Longer The Route: NJ, Active 2015 [facility] Drug form: LIQ, PRN, Dosing Weight 96.023, kg, PRN Abnormal Lab Result, Start date: 02/08/16 20:04:00 CDT, Duration: 30 day, Stop date: 03/09/16 20:03:00 CDT, FOR ICU USE ONLYNotes: (Same as: Potassium Chloride) sodium phosphate + 15 mmol, 5 mL, No Longer The sodium chloride Route: IVPB, Active 2015 [facility] 0.9% INJ 250 mL PRN, Dosing Weight 96.023, kg, PRN Abnormal Lab Result, Start date: 02/08/16 20:04:00 CDT, Duration: 30 day, Stop date: 03/09/16 20:03:00 CDT, FOR ICU USE ONLY sodium phosphate + 45 mmol, 15 No Longer The sodium chloride mL, Route: Active 2015 [facility] 0.9% 500 ml INJ IVPB, Drug 500 mL form: INJ, PRN, Dosing Weight 96.023, kg, PRN Abnormal Lab Result, Start date: 02/08/16 20:04:00 CDT, Duration: 30 day, Stop date: 03/09/16 20:03:00 CDT, FOR ICU USE ONLY Calcium Carbonate 500 mg, 1 tab, No Longer The 500 MG Chewable Route: PO, Active 2015 [facility] Tablet Drug form: CHEWTAB, PRN, Dosing Weight 96.023, kg, PRN Abnormal Lab Result, FOR ICU USE ONLY, Start date: 02/08/16 20:04:00 CDT, Duration: 30 day, Stop date: 03/09/16 20:03:00 CDTNotes: (Same As: [place]) Calcium Carbonate 500 [id number] mg elemental calcium Dose= mg calcium carbonate ( mg elemental calcium) Calcium Gluconate 1 gm, 10 mL, No Longer The Route: IVPB, Active 2015 [facility] PRN, Dosing Weight 96.023, kg, PRN Abnormal Lab Result, Start date: 02/08/16 20:04:00 CDT, Duration: 30 day, Stop date: 03/09/16 20:03:00 CDT, FOR ICU USE ONLYNotes: WASTE: F/P - Sink; E - Municipal Trash Bin Albuterol 0.83 2.49 mg, 3 mL, No Longer The MG/ML Inhalant Route: NEB, Active 2015 [facility] Solution Drug form: SOLN, PRN, Dosing Weight 96.023, kg, PRN Respiratory Protocol, Start date: 02/08/16 20:04:00 CDT, Duration: 30 day, Stop date: 03/09/16 20:03:00 CDTNotes: SEE RT DOCUMENTATION (Same as: Proventil) Dextrose 50% 25 gm, 50 mL, No Longer The Syringe Route: IVP, Active 2015 [facility] Drug Form: INJ, Dosing Weight 96.023, kg, PRN, PRN Blood Glucose Results, Start date: 02/08/16 20:04:00 CDT, Duration: 30 day, Stop date: 03/09/16 20:03:00 CDT Docusate 100 mg, 1 cap, No Longer The Route: PO, Active 2015 [facility] Drug form: CAP, BID, Dosing Weight 96.023, kg, PRN Constipation, Start date: 02/08/16 20:04:00 CDT, Duration: 30 day, Stop date: 03/09/16 20:03:00 CDTNotes: (Same as: Colace) (Do Not Crush) Glucagon 1 mg, Route: No Longer The IM, Drug form: Active 2015 [facility] PDR/INJ, PRN, Dosing Weight 96.023, kg, PRN Blood Glucose Results, Start date: 02/08/16 20:04:00 CDT, Duration: 30 day, Stop date: 03/09/16 20:03:00 CDT Acetaminophen 325 2 tab, Route: No Longer The MG / Hydrocodone PO, Drug Form: Active 2015 [facility] Bitartrate 5 MG TAB, Dosing Oral Tablet Weight 96.023, kg, Q4H, PRN Pain Score 4-6, Start date: 02/08/16 20:04:00 CDT, Duration: 30 day, Stop date: 03/09/16 20:03:00 CDTNotes: (Same as: [place] 325/5) Do not exceed 4gm/day of acetaminophen. Acetaminophen 650 mg, 2 tab, No Longer The Route: PO, Active 2015 [facility] Drug form: TAB, Q4H, Dosing Weight 96.023, kg, PRN Pain 1-3/Temp > 100.4 F, Start date: 02/08/16 20:04:00 CDT, Duration: 30 day, Stop date: 03/09/16 20:03:00 CDTNotes: Do not exceed 4 gm/day. (Same as: Tylenol) D5W 1/2NS + KCL 1,000 mL, No Longer The 20mEq/L 1000ml Rate: 50 Active 2015 [facility] (Premix) 1,000 mL ml/hr, Infuse over: 20 hr, Route: IV, Dosing Weight 96.023 kg, Total Volume: 1,000, Start date: 02/08/16 20:04:00 CDT, Duration: 30 day, Stop date: 03/09/16 20:03:00 CDTNotes: PREMIX IV - Do Not Alter WASTE: F/P - Sink; E - Municipal Trash Bin Ondansetron 4 mg, 2 mL, Inactive The Route: IVP, 2015 [facility] Drug form: INJ, ONCE, Dosing Weight 96.023, kg, PRN Nausea & Vomiting, Start date: 02/08/16 9:59:00 CDTNotes: (Same as: Zofran) MEDICATION WASTE Product Size: 4 mg Product Wasted: ___ mg Promethazine 6.25 mg, 25 Inactive The mL, Route: 2015 [facility] IVPB, Drug form: SOLN, ONCE, Dosing Weight 96.023, kg, PRN Nausea & Vomiting, Start date: 02/08/16 9:59:00 CDT Flumazenil 0.2 mg, 2 mL, Inactive The Route: IV2015 [facility] Drug form: INJ, PRN, Dosing Weight 96.023, kg, PRN Benzodiazepine Reversal, Initial dose, Start date: 02/08/16 9:59:00 CDT, Duration: 30 day, Stop date: 03/09/16 9:58:00 CDTNotes: (Same as: Romazicon) Naloxone 0.4 mg, 1 mL, Inactive The Route: IVP, 2015 [place] Drug form: INJ, Q2MIN, Dosing Weight 96.023, kg, PRN Narcotic Reversal, Start date: 02/08/16 9:59:00 CDT, Duration: 8 doses or times, Stop date: Limited # of timesNotes: Same as Narcan Fentanyl 50 microgram, Inactive The 1 mL, Route: 2015 [place] IVP, Drug form: INJ, Q5Min, Dosing Weight 96.023, kg, PRN Pain Score 7-10, Start date: 02/08/16 9:59:00 CDT, Duration: 2 doses or times, Stop date: Limited # of timesNotes: (Same as: [employer]) Preservative free. Hydromorphone 1 mg, 1 mL, Inactive The Route: IVP, 2015 [facility] [place] Drug form: INJ, Q5Min, Dosing Weight 96.023, kg, PRN Pain Score 7-10, Start date: 02/08/16 9:59:00 CDT, Duration: 4 doses or times, Stop date: Limited # of timesNotes: Same as: Dilaudid Labetalol 10 mg, 2 mL, Inactive The Route: IVP, 2015 [facility] Drug form: INJ, Q5Min, Dosing Weight 96.023, kg, PRN Elevated BP, Start date: 02/08/16 9:59:00 CDT, Duration: 5 doses or times, Stop date: Limited # of times ondansetron (ANES) Route: IV, Inactive The Drug form: 2015 [facility] [place] INJ, ONCE, Stop date: 02/08/16 9:40:00 CDT hydromorphone Route: IV, Inactive The (ANES) Drug form: 2015 [facility] [place] INJ, ONCE, Stop date: 02/08/16 9:15:00 CDT LR 1000 mL INJ Route: IV, Inactive The (ANES) Total Volume: 2015 [facility] [place] 1,000, Start date: 02/08/16 9:08:00 CDT, Stop date: 02/08/16 10:08:00 CDT heparin (ANES) Route: IV, Inactive The Drug form: 2015 [facility] [place] INJ, ONCE, Stop date: 02/08/16 8:55:00 CDT fentaNYL (ANES) Route: IV, Inactive The Drug form: 2015 [facility] [place] INJ, ONCE, Stop date: 02/08/16 8:40:00 CDT propofol (ANES) Route: IV, Inactive The Drug form: 2015 [facility] INJ, ONCE, Stop date: 02/08/16 8:40:00 CDT lidocaine (ANES) Route: IV, Inactive The Drug form: [facility] INJ, ONCE, Stop date: 02/08/16 8:40:00 CDT midazolam (ANES) Route: IV, Inactive The Drug form: [facility] SOLN, ONCE, Stop date: 02/08/16 8:40:00 CDT rocuronium (ANES) Route: IV, Inactive The Drug form: 2015 [facility] [place] INJ, ONCE, Stop date: 02/08/16 8:40:00 CDT piperacillin-tazob IV, ONCE Inactive The actam (ANES) [facility] famotidine (ANES) Route: IV, Inactive The Drug form: 2015 [facility] INJ, ONCE, Stop date: 02/08/16 8:25:00 CDT Rifadin IV 600 mg, Route: No Longer The MISC, Drug Active 2015 form: PDR/INJ, ONCALL, Start date: 02/08/16 7:00:00 CDT, Duration: 30 day, Stop date: 03/09/16 6:59:00 CDTNotes: Child:10-20mg/ kg , Lidocaine 5 mg, Route: Inactive The Hydrochloride 10 INTRADERM, [facility] MG/ML Injectable Dosing Weight Solution 98.636, kg, ONCALL, Start date: 02/08/16 7:00:00 CDT, Duration: 30 day, Stop date: 03/09/16 6:59:00 CDT Lactated Ringers 1,000 mL, No Longer The 1,000 mL Rate: 40 Active [facility] ml/hr, Infuse over: 25 hr, Route: IV, Dosing Weight 98.636 kg, Total Volume: 1,000, Start date: 02/08/16 6:31:00 CDT, Duration: 30 day, Stop date: 03/09/16 6:30:00 CDT Roxicodone 15 mg, Route: Inactive The PO, Drug form: [facility] TAB, Q4H, Start date: 02/07/16 12:00:00 CDT, Stop date: 03/08/16 8:00:00 CDT Roxicodone 15 mg, 3 tab, No Longer The Route: PO, Active 2015 [facility] Drug form: TAB, Q4H, PRN Pain 1-3/Temp > 100.4 F, Start date: 02/07/16 10:35:00 CDT, Duration: 30 day, Stop date: 03/08/16 10:34:00 CDTNotes: (Same as: Roxicodone) oxyCODONE 10 mg 15 mg, Route: Inactive The extended release PO, Drug form: 2015 [facility] ERTAB, Q6H, Start date: 02/05/16 18:00:00 CDT, Duration: 30 day, Stop date: 03/06/16 12:00:00 CDT Roxicodone 15 mg, 3 tab, No Longer The Route: PO, Active 2015 [facility] Drug form: TAB, Q6Hnow, Start date: 02/05/16 15:21:00 CDT, Stop date: 03/06/16 11:00:00 CDTNotes: (Same as: Roxicodone) Dilaudid 2 mg, 1 mL, No Longer The Route: IV, Active 2015 [facility] Drug form: INJ, Q2H, Dosing Weight 97.273, kg, PRN Pain Score 7-10, Start date: 02/05/16 15:04:00 CDT, Duration: 30 day, Stop date: 03/06/16 15:03:00 CDTNotes: Same as: Dilaudid sodium chloride 1,000 mL, No Longer The 0.9% 1000 ml INJ Rate: 50 Active 2015 [facility] 1,000 mL ml/hr, Infuse over: 20 hr, Route: IV, Dosing Weight 97.273 kg, Total Volume: 1,000, Start date: 02/04/16 11:14:00 CDT, Stop date: 03/05/16 11:13:00 CDT vancomycin 750 mg, 150 No Longer The mL, Route: Active 2015 [facility] IVPB, Drug form: INJ, [id number], Start date: 02/02/16 15:00:00 CDT, Duration: 30 day, Stop date: 03/03/16 3:00:00 CDTNotes: TIME CRITICAL MEDICATION Same as: Vancocin Infusion rate 2000 mg: infuse over 2.5 hours atorvastatin 40 mg, 1 tab, No Longer The Route: PO, Active [address] [place] [address] Drug form: TAB, Bedtime, Dosing Weight 97.273, kg, Start date: 02/01/16 21:00:00 CDT, Duration: 30 day, Stop date: 03/01/16 21:00:00 CDTNotes: (Same as: Lipitor) Vancomycin 1 ea, Route: Inactive The MISC, Dosing 2015 [facility] Weight 97.273, kg, ONCALL, Start date: 02/01/16 15:00:00 CDT, Duration: 1 doses or times, Pharmacy to dose Acetaminophen 325 1 tab, Route: No Longer The MG / Hydrocodone PO, Drug Form: Active 2015 [facility] Bitartrate 10 MG TAB, Dosing Oral Tablet [[place] Weight 97.273, 10/325] kg, Q6H, PRN Pain Score 4-6, Start date: 02/01/16 13:10:00 CDT, Duration: 30 day, Stop date: 03/02/16 13:09:00 CDTNotes: Do not exceed 4gm/day of acetaminophen. (Same as: [place] 325/10) Tylenol 650 mg, 2 tab, No Longer The Route: PO, Active 2015 [facility] Drug form: TAB, Q6H, Dosing Weight 97.273, kg, PRN Pain Score 1-3, Start date: 02/01/16 13:02:00 CDT, Duration: 30 day, Stop date: 03/02/16 13:01:00 CDTNotes: Do not exceed 4 gm/day. (Same as: Tylenol) Vancomycin 1,000 mg, No Longer The Route: IVPB, Active 2015 [facility] [id number], Dosing Weight 97.273, kg, Start date: 02/01/16 13:00:00 CDT, Stop date: 03/02/16 1:00:00 CDTNotes: TIME CRITICAL MEDICATION (Same As: Vancocin) Infusion rate 2001 mg: infuse over 2.5 hours MEDICATION WASTE Product Size: 1000 mg Product Wasted: ___ mg Zosyn 3.375 gm, No Longer The Route: IVPB, Active 2015 [facility] [id number], Dosing Weight 97.273, kg, CrCl Notes: (Same as: Zosyn) Dosing based on Piperacillin component MEDICATION WASTE Product Size: 3375 mg Product Wasted: ___ mg Lisinopril 5 mg, 1 tab, No Longer The Route: PO, Active 2015 [facility] Drug form: TAB, Daily, Dosing Weight 97.273, kg, Start date: 02/01/16 9:00:00 CDT, Stop date: 03/01/16 9:00:00 CDTNotes: (Same as: Prinivil, Zestril) Amlodipine 5 mg, 1 tab, No Longer The Route: PO, Active [facility] Drug form: TAB, Daily, Dosing Weight 97.273, kg, Start date: 02/01/16 9:00:00 CDT, Stop date: 03/01/16 9:00:00 CDTNotes: (Same as: Norvasc) cilostazol 100 mg, 1 tab, No Longer The Route: PO, Active [facility] Drug form: TAB, BID, Dosing Weight 97.273, kg, Start date: 02/01/16 9:00:00 CDT, Duration: 30 day, Stop date: 03/01/16 17:00:00 CDTNotes: Non-Formulary Drug. (Same As: Pletal) Doxazosin 1 mg, 0.5 tab, No Longer The Route: PO, Active [facility] Drug form: TAB, Daily, Dosing Weight 97.273, kg, Start date: 02/01/16 9:00:00 CDT, Duration: 30 day, Stop date: 03/01/16 9:00:00 CDTNotes: (Same as: Cardura) gabapentin 300 mg, 1 cap, No Longer The Route: PO, Active [facility] Drug form: CAP, BID, Dosing Weight 97.273, kg, Start date: 02/01/16 9:00:00 CDT, Duration: 30 day, Stop date: 03/01/16 17:00:00 CDTNotes: (Same as: Neurontin) 24 HR Metoprolol 0.5 tab, No Longer The Tartrate 100 MG Route: PO, Active 2015 [facility] Extended Release Drug form: Tablet [Toprol] ERTAB, Daily, Start date: 02/01/16 9:00:00 CDT, Duration: 30 day, Stop date: 03/01/16 9:00:00 CDTNotes: (Same as: Toprol XL) May split tab, but do not crush. Alprazolam 2 MG 2 mg, 2 tab, No Longer The Oral Tablet Route: PO, Active 2015 [facility] Drug form: TAB, BID, Dosing Weight 97.273, kg, PRN Anxiety, Start date: 02/01/16 8:23:00 CDT, Duration: 30 day, Stop date: 03/02/16 8:22:00 CDTNotes: With food or milk (Same as: Xanax) Albuterol 0.833 3 ml, Route: No Longer The MG/ML / NEB, Drug Active 2015 [facility] Ipratropium Form: SOLN, [place] 0.167 Dosing Weight MG/ML Inhalant 97.273, kg, Solution PRN, PRN Respiratory Protocol, Start date: 02/01/16 8:22:00 CDT, Duration: 30 day, Stop date: 03/02/16 8:21:00 CDTNotes: (Same as: Duoneb) Zofran 4 mg, 2 mL, No Longer The Route: IVP, Active 2015 [facility] Drug form: INJ, Q6H, Dosing Weight 97.273, kg, PRN Nausea, Start date: 02/01/16 1:24:00 CDT, Duration: 30 day, Stop date: 03/02/16 1:23:00 CDTNotes: (Same as: Zofran) MEDICATION WASTE Product Size: 4 mg Product Wasted: ___ mg Dilaudid 2 mg, 2 mL, No Longer The Route: IVP, Active 2015 [facility] Drug form: INJ, Q4H, Dosing Weight 97.273, kg, PRN Pain Score 7-10, Start date: 02/01/16 1:23:00 CDT, Duration: 30 day, Stop date: 03/02/16 1:22:00 CDTNotes: Same as: Dilaudid Acetaminophen 300 1 tab, PO, No Longer The MG / Codeine BID, PRN pain, Active 2015 [facility] Phosphate 30 MG # 28 tab, 0 Oral Tablet Refill(s) lisinopril 10 mg 10 mg=1 tab, Active The oral tablet PO, Daily, # 2015 [facility] 30 tab, 0 Refill(s) metoprolol 100 mg=1 tab, Active The tartrate 100 mg PO, BID, # 60 2015 [facility] oral tablet tab, 0 Refill(s) Centrum Adults 1 tab, PO, Active The oral tablet Daily, 0 2015 [facility] Refill(s) doxazosin 1 mg 1 mg=1 tab, Active The oral tablet PO, Daily, # 2015 [facility] 30 tab, 0 Refill(s) atorvastatin 40 mg 40 mg=1 tab, Active The oral tablet PO, Bedtime, # 2015 [facility] 30 tab, 0 Refill(s) Anoro Ellipta 62.5 1 puff, Active The mcg-25 mcg INHALER, 2015 [facility] inhalation powder Daily, # 1 ea, 3 Refill(s) Alprazolam 2 MG 2 mg=1 tab, Active The Oral Tablet PO, BID, PRN 2015 [facility] Anxiety, # 20 tab, 0 Refill(s) Furosemide 20 MG 20 mg=1 tab, Active The Oral Tablet PO, Daily, # 2015 [facility] 30 tab, 0 Refill(s) cilostazol 100 mg 100 mg=1 tab, Active The oral tablet PO, BID, # 60 2015 [facility] tab, 0 Refill(s) Acetaminophen 650 mg, Route: Inactive The PO, Drug form: 2015 [facility] TAB, ONCE, Dosing Weight 95, kg, Priority: STAT, Start date: 01/31/16 22:28:00 CDT, Stop date: 01/31/16 22:28:00 CDT Piperacillin / 3.375 gm, Inactive The tazobactam Route: IVPB, 2015 [facility] ONCE, Dosing Weight 95, kg, Priority: STAT, Start date: 01/31/16 17:57:00 CDT, Stop date: 01/31/16 17:57:00 CDTNotes: (Same as: Zosyn) Dosing based on Piperacillin component MEDICATION WASTE Product Size: 3375 mg Product Wasted: ___ mg Vancomycin 1,000 mg, Inactive The Route: IVPB, 2015 [facility] ONCE, Dosing Weight 95, kg, Priority: STAT, Start date: 01/31/16 17:57:00 CDT, Stop date: 01/31/16 17:57:00 CDT, TIME CRITICAL MEDICATIONNote s: TIME CRITICAL MEDICATION (Same As: Vancocin) Infusion rate 2001 mg: infuse over 2.5 hours MEDICATION WASTE Product Size: 1000 mg Product Wasted: ___ mg Sodium Chloride 1,000 mL, Inactive The 0.154 MEQ/ML 2,000 ml/hr, 2015 [facility] Injectable Infuse Over: Solution 30 minutes, Route: IV, 1,000, Drug form: INJ, ONCE, Priority: STAT, Dosing Weight 95 kg, Start date: 01/31/16 17:04:00 CDT, Duration: 1 doses or times, Stop date: 01/31/16 17:04:00 CDT Acetaminophen 325 1 tab, Route: Inactive The MG / Hydrocodone PO, Drug Form: 2015 [facility] Bitartrate 10 MG TAB, Dosing Oral Tablet [[place] Weight 95, kg, 10/325] ONCE, STAT, Start date: 01/31/16 16:57:00 CDT, Stop date: 01/31/16 16:57:00 CDTNotes: Do not exceed 4gm/day of acetaminophen. (Same as: [place] 325/10) Amlodipine 10 mg, PO, Active The Daily, 0 2015 [facility] Refill(s) gabapentin 300 mg, PO, Active The BID, 0 2015 [facility] Refill(s) atorvastatin 20 mg, 1 tab, Inactive The Route: PO, 2014 [facility] Drug form: TAB, Bedtime, Dosing Weight 98.267, kg, Start date: 02/16/15 21:00:00, Duration: 30 day, Stop date: 03/17/15 21:00:00Notes: (Same As: Lipitor) lovastatin 20 mg 20 mg=1 tab, Active The oral tablet PO, Bedtime, # [facility] 30 tab, 0 Refill(s), given to patient Hydrochlorothiazid 1 tab, Route: No Longer The e 12.5 MG / PO, Drug Form: Active [facility] Lisinopril 20 MG TAB, Dosing Oral Tablet Weight 98.267, kg, Daily, Start date: 02/16/15 9:00:00, Duration: 30 day, Stop date: 03/17/15 9:00:00 Prinivil 20 mg, 1 tab, Inactive The Route: PO, 2014 [facility] Drug form: TAB, Daily, Start date: 02/16/15 9:00:00, Duration: 30 day, Stop date: 03/17/15 9:00:00Notes: (Same as: Prinivil, Zestril) metoprolol 25 mg, 1 tab, Inactive The tartrate Route: PO, 2014 [facility] Drug form: TAB, Q12H, Dosing Weight 98.267, kg, Start date: 02/16/15 9:00:00, Duration: 30 day, Stop date: 03/17/15 21:00:00Notes: (Same as: Lopressor) Microzide 12.5 mg, 1 Inactive The tab, Route: 2014 [facility] PO, Drug form: TAB, Daily, Start date: 02/16/15 9:00:00, Duration: 30 day, Stop date: 03/17/15 9:00:00Notes: (Same as: Hydrodiuril). Give with food. pneumococcal 0.5 mL, Route: Inactive The capsular IM, Drug Form: 2014 [facility] polysaccharide INJ, Daily, type 1 vaccine / Start date: pneumococcal 02/16/15 capsular 9:00:00, polysaccharide Duration: 1 type 10A vaccine / doses or pneumococcal times, Stop capsular date: 02/16/15 polysaccharide 9:00:00Notes: type 11A vaccine / (Same as: pneumococcal Pneumovax 23) capsular Refrigerate polysaccharide type 12F vaccine / pneumococcal capsular polysacchar Alprazolam 0.25 MG 0.25 mg, 1 No Longer The Oral Tablet tab, Route: Active 2014 [facility] [Xanax] PO, Drug form: TAB, BID, Dosing Weight 98.267, kg, PRN Anxiety, Start date: 02/15/15 23:39:00, Duration: 30 day, Stop date: 03/17/15 23:38:00Notes: With food or milk (Same as: Xanax) Acetaminophen 325 1 tab, Route: No Longer The MG / Hydrocodone PO, Drug Form: Active 2014 [facility] Bitartrate 5 MG TAB, Dosing Oral Tablet [[place] Weight 98.267, 5/325] kg, Q12H, PRN Pain 1-3/Temp > 100.4 F, Start date: 02/15/15 23:39:00, Duration: 30 day, Stop date: 03/17/15 23:38:00Notes: (Same as: [place] 325/5) Do not exceed 4gm/day of acetaminophen. Tessalon Perles 200 mg, 2 cap, No Longer The Route: PO, Active 2014 [facility] Drug form: CAP, TID, Dosing Weight 13.636, kg, Start date: 02/15/15 20:00:00, Duration: 30 day, Stop date: 03/17/15 17:00:00Notes: (Same As: Tessalon Perles) "Do Not Crush" Acetaminophen 325 1 tab, PO, Active The MG / Hydrocodone Q12H, PRN 2014 [facility] Bitartrate 5 MG Pain, # 30 Oral Tablet [[place] tab, 0 5/325] Refill(s) Alprazolam 0.25 MG 0.25 mg=1 tab, Active The Oral Tablet PO, BID, PRN 2014 [facility] [Xanax] Anxiety, Stress, # 20 tab, 0 Refill(s) metoprolol 25 mg, PO, Active The tartrate BID, 0 2014 [facility] Refill(s) NS 1,000 mL 1,000 mL, No Longer The Rate: 75 Active 2014 [facility] ml/hr, Infuse over: 13.3 hr, Route: IV, Dosing Weight 13.636 kg, Total Volume: 1,000, Start date: 02/15/15 18:04:00, Duration: 30 day, Stop date: 03/17/15 18:03:00 Xopenex 0.63 mg, 3 mL, No Longer The Route: NEB, Active 2014 [facility] Drug form: SOLN, PRN, Dosing Weight 13.636, kg, PRN Respiratory Protocol, Start date: 02/15/15 18:03:00, Duration: 30 day, Stop date: 03/17/15 18:02:00Notes: SEE RT DOCUMENTATION (Same as:Xopenex) Non-Formulary Acetaminophen 325 2 tab, Route: No Longer The MG / Hydrocodone PO, Drug Form: Active 2014 [facility] Bitartrate 10 MG TAB, Dosing Oral Tablet [[place] Weight 13.636, 10/325] kg, Q4H, PRN Pain Score 4-6, Start date: 02/15/15 18:03:00, Duration: 30 day, Stop date: 03/17/15 18:02:00Notes: Do not exceed 4gm/day of acetaminophen. (Same as: [place] 325/10) Albuterol 0.833 3 ml, Route: No Longer The MG/ML / NEB, Drug Active 2014 [facility] Ipratropium Form: SOLN, [place] 0.167 Dosing Weight MG/ML Inhalant 13.636, kg, Solution [DuoNeb] PRN, PRN Respiratory Protocol, Start date: 02/15/15 15:51:00, Duration: 30 day, Stop date: 03/17/15 15:50:00Notes: (Same as: Duoneb) Aspirin 324 mg, 4 tab, Inactive The Route: CHEW, 2014 [facility] Drug form: CHEWTAB, ONCE, Dosing Weight 13.636, kg, Priority: STAT, Start date: 02/15/15 15:00:00, Stop date: 02/15/15 15:00:00Notes: Take with food. tramadol 100 mg=2 tab, Active The hydrochloride 50 PO, Q6H, PRN 2014 [facility] MG Oral Tablet pain, X 3 day, [Ultram] # 20 tab, 0 Refill(s) Tylenol 650 mg, 2 tab, Inactive The Route: PO, 2014 [facility] Drug form: TAB, ONCE, Dosing Weight 108.182, kg, Pediatric Dosing, Priority: STAT, Start date: 02/09/15 15:47:00, Stop date: 02/09/15 15:47:00Notes: Do not exceed 4 gm/day. (Same as: Tylenol) Sodium Chloride 1,000 mL, Inactive The 0.154 MEQ/ML 1,000 ml/hr, 2014 [facility] Injectable Infuse Over: 1 Solution hr, Route: IV, 1,000, Drug form: INJ, ONCE, Priority: STAT, Dosing Weight 104.545 kg, Start date: 01/23/15 14:39:00, Duration: 1 doses or times, Stop date: 01/23/15 14:39:00 Saline Flush 0.9% 10 mL, Route: Inactive The IVP, Drug 2014 [facility] Form: INJ, Dosing Weight 104.545, kg, PRN, PRN Line Flush, Start date: 01/23/15 14:39:00, Duration: 30 day, Stop date: 02/22/15 14:38:00Notes: preservative free. Allergies, Adverse Reactions, Alerts Substance Category Reaction Severity Reaction Status Date Comments Source type Reported morphine Assertion Drug Active The allergy [facility] Immunizations Immunization Date Site Status Last Updated Comments Source Given pneumococcal Right completed Ashok The 23-valent 5 deltoid [facility] vaccine Results Order Name Results Value Reference Date Interpretation Comments Source Range BLOOD BANK RBC product Product available 04/04 The RESULTS /2015 [facility] (04/04/16 11:22 AM) BLOOD BANK ABO/Rh B POS 04/04 The RESULTS [facility] BLOOD BANK Antibody Negative 04/04 The RESULTS [facility] (04/04/16 11:20 AM) URINE AND UA <=1.0 0.1 - 1.0 03/14 The STOOL Urobilinogen mg/dL /2016 [facility] URINE AND UA RBC 1 /HPF 0 - 2 03/14 The [facility]OOL [facility] URINE AND UA WBC 3 /HPF 0 - 5 03/14 The STOOL [facility] URINE AND UA Sq Epi Few /LPF Few /LPF 03/14 [facility] The STOOL [facility] URINE AND UA Mucus Few /LPF None Seen 03/14 The STOOL /LPF /[facility] URINE AND UA Leuk Est Negative Negative 03/14 The STOOL [facility] (03/14/16 2:08 AM) URINE AND UA Protein Negative Negative 03/14 The STOOL mg/dL mg/dL [facility] URINE AND UA pH 5.0 5.0 - 8.0 03/14 The STOOL [facility] URINE AND UA Spec Grav 1.009 <=1.030 03/14 The [facility] URINE AND UA Turbidity Clear Clear 03/14 The [facility] (03/14/16 2:08 AM) URINE AND UA Ketones Negative Negative 03/14 The STOOL mg/dL mg/dL [facility] URINE AND UA Glucose Negative Negative 03/14 The STOOL mg/dL mg/dL [facility] URINE AND UA Color Yellow Yellow 03/14 The [facility] *NA* (03/14/16 2:08 AM) URINE AND UA Nitrite Negative Negative 03/14 The STOOL [facility] (03/14/16 2:08 AM) URINE AND UA Blood Negative Negative 03/14 The [facility] (03/14/16 2:08 AM) URINE AND UA Bili Negative Negative 03/14 The [facility] *NA* (03/14/16 2:08 AM) CHEM PANEL Lactic Acid 0.8 mMol/L 0.5 - 2.2 03/14 The Lvl [facility] CHEM PANEL Procalcitoni <0.05 0.00 - 03/14 The n Lvl ng/mL 0. [facility] BLOOD BANK Antibody Negative 03/14 The RESULTS [facility] (03/13/16 9:07 PM) BLOOD BANK ABO/Rh B POS 03/14 The RESULTS [facility] CHEM PANEL eGFR 43 03/14 Result Comment: The eGFR is calculated using the CKD-EPI formula. In most young, healthy individuals the eGFR will be >90 mL/ min/1.73m2. The eGFR declines with age. An eGFR of 60-89 may be normal in The mL/min/1.7 some populations, particularly the elderly, for whom the CKD-EPI formula has not been extensively validated. Use of the eGFR is not recommended in the following populations: [place] [address] Individuals with unstable creatinine concentrations, including patients and those with serious co-morbid conditions. Patients with extremes in muscle mass or diet. The data above are obtained from the National Kid[employer] Disease Education Program (NKDEP) which additionally recommends that when the eGFR is used in patients with extremes of body mass index for purposes of drug dosing, the eGFR should be multiplied by the estimated BMI. CHEM PANEL BUN 21 mg/dL 7 - 22 03/14 MH [facility] CHEM PANEL Creatinine 1.79 mg/dL 0.50 - 03/14 [facility] The Lvl 1.40 [facility] CHEM PANEL Alk Phos 95 unit/L 39 - 136 03/14 MH [facility] CHEM PANEL Bili Total 0.3 mg/dL 0.2 - 1.3 03/14 MH [facility] CHEM PANEL AST 39 unit/L 0 - 37 03/14 MH The [facility] CHEM PANEL ALT 59 unit/L 0 - 65 03/14 MH The [facility] CHEM PANEL Sodium Lvl 139 meq/L 135 - 145 03/14 MH The [facility] CHEM PANEL Total 7.8 g/dL 6.4 - 8.4 03/14 MH The Protein [facility] CHEM PANEL Albumin Lvl 2.5 g/dL 3.5 - 5.0 03/14 MH The [facility] CHEM PANEL Glucose Lvl 120 mg/dL 70 - 99 03/14 MH The [facility] CHEM PANEL Chloride Lvl 106 meq/L 95 - 109 03/14 [facility] The [facility] CHEM PANEL CO2 21 meq/L 24 - 32 03/14 MH [facility] CHEM PANEL Calcium Lvl 10.1 mg/dL 8.5 - 10.5 03/14 MH The [facility] CHEM PANEL Potassium 3.3 meq/L 3.5 - 5.1 03/14 [facility] The Lvl [facility] CHEM PANEL A/G Ratio 0.5 0.7 - 1.6 03/14 MH The [facility] CHEM PANEL Globulin 5.3 g/dL 2.7 - 4.2 03/14 The [facility] CHEM PANEL B/C Ratio 12 6 - 25 03/14 The [facility] CHEM PANEL AGAP 15.3 meq/L 10.0 - 03/14 [facility] The 20.0 [facility] HEMATOLOGY MPV 7.4 fL 7.4 - 10.4 03/14 [facility] The [facility] HEMATOLOGY WBC 7.3 K/CMM 3.7 - 10.4 03/14 The [facility] HEMATOLOGY MCV 88.5 fL 80.0 - 03/14 [facility] The 94.0 [facility] HEMATOLOGY RBC 3.00 M/CMM 4.70 - 03/14 [facility] The 6. [facility] HEMATOLOGY Hct 26.5 % 42.0 - 03/14 [facility] The 54.0 [facility] HEMATOLOGY Hgb 8.8 g/dL 14.0 - 03/14 MH The 18.0 [facility] HEMATOLOGY MCHC 33.1 g/dL 32.0 - 03/14 MH The 36.0 [facility] HEMATOLOGY MCH 29.3 pg 27.0 - 03/14 MH The 31.0 [facility] HEMATOLOGY Platelet 241 K/CMM 133 - 450 03/14 MH The [facility] HEMATOLOGY RDW 15.5 % 11.5 - 03/14 [facility] The 14.5 [facility] HEMATOLOGY Basophils # 0.1 K/CMM 0.0 - 0.2 03/14 MH The [facility] HEMATOLOGY Lymphocytes 14.3 % 20.0 - 03/14 MH The 40.0 [facility] HEMATOLOGY Eosinophils 1.9 % 0.0 - 4.0 03/14 MH The [facility] HEMATOLOGY Segs 77.1 % 45.0 - 03/14 MH The 75.0 [facility] Monocytes 5.3 % 2.0 - 12.0 03/14 [facility] Basophils 1.4 % 0.0 - 1.0 03/14 [facility] Segs-Bands # 5.6 K/CMM 1.5 - 8.1 03/14 [facility] Lymphocytes 1.0 K/CMM 1.0 - 5.5 03/14 [facility] # [facility] Monocytes # 0.4 K/CMM 0.0 - 0.8 03/14 [facility] Eosinophils 0.1 K/CMM 0.0 - 0.5 03/14 [facility] Ext Lower Ext Lower Study: Ext Lower Venous Doppler Bilat US 03/13/2016 11: 06 PM CDT 03/13 - [facility] Venous Venous /2015 [facility] Doppler Doppler Ordering Physician: Blanche Diaz MD Bilat US Bilat US Clinical Indication: Pain, Limb. 50-year-old with bilateral lower extremity pain, worse on the left than the right. Read by: Tayla Thorne MD Dictated Date/time: 03/13/16 23:52 Comparison: None Electronically Signed by: Tayla Thorne MD 03/13/16 23:59 FINAL REPORT TECHNIQUE: Sonographic evaluation of the bilateral lower extremity veins is performed using high resolution B-mode imaging, along with pulse and color Doppler imaging. FINDINGS: Normal, spontaneous, phasic flow with normal augmentation and compression is identified in the bilateral common femoral, superficial femoral and popliteal veins. Spontaneous, phasic flow is present in t he external iliac, greater saphenous and posterior tibial veins. IMPRESSION: Negative bilateral lower extremity venous Doppler ultrasound, with no evidence for deep venous thrombosis. SL: [id number] Chest Chest 1view Study: Chest 1view DX 03/13/2016 11:18 PM CDT 03/13 [facility] 1view DX DX [facility] Ordering Physician: Blanche Diaz MD Clinical Indication: Fever Read by: Tayla Thorne MD Dictated Date/time: 03/13/16 23:32 Comparison: February 15, 2016 Electronically Signed by: Tayla Thorne MD 03/13/16 23:33 FINAL REPORT FINDINGS: A right arm PICC line catheter is present, with tip projecting over the distal SVC. The lungs are adequately expanded and clear. There is no evidence for alveolar consolidation, pleural effusion, pulmonary edema or pneumothorax. The cardiomediastinal silhouette is within normal limits. No acute osseous abnormality is seen. Soft tissues are unremarkable. IMPRESSION: A right arm PICC line catheter is present with tip overlying the distal SVC. There is no pneumothorax. No acute cardiopulmonary disease. SL: [id number] ANEMIA UIBC 174 ug/dl 110 - 370 02/15 The [facility] ANEMIA TIBC 196 ug/dl 228 - 428 02/15 The [facility] ANEMIA Iron 22 ug/dl 45 - 160 02/15 The [facility] ANEMIA % [place] 11 % 12 - 57 02/15 The [facility] Chest Chest 1view Clinical Indication: Fever; 02/14 - The 1view DX DX /2015 - [facility] Comparison: 02/15/2015 Read by: Akil Castaneda MD Dictated Date/time: 02/15/16 16:57 FINDINGS: Electronically Signed by: Akil Castaneda MD 02/15/16 16:57 FINAL REPORT AP chest radiographs shows normal lung volumes without interstitial or airspace opacities, pleural effusions or pneumothorax. The heart size and pulmonary vasculature are normal. The trachea is midline. There are no clinically significant osseous abnormalities noted. IMPRESSION: No chest radiographic evidence of acute cardiopulmonary disease. SL: [id number] CHEM PANEL eGFR 57 02/14 Result Comment: The eGFR is calculated using the CKD-EPI formula. In most young, healthy individuals the eGFR will be >90 mL/ min/1.73m2. The eGFR declines with age. An eGFR of 60-89 may be normal in The mL/min/1. some populations, particularly the elderly, for whom the CKD-EPI formula has not been extensively validated. Use of the eGFR is not recommended in the following populations: [facility] 3m2 Individuals with unstable creatinine concentrations, including patients and those with serious co-morbid conditions. Patients with extremes in muscle mass or diet. The data above are obtained from the National Kidney Disease Education Program (NKDEP) which additionally recommends that when the eGFR is used in patients with extremes of body mass index for purposes of drug dosing, the eGFR should be multiplied by the estimated BMI. CHEM PANEL AGAP 14.7 meq/L 10.0 - 02/14 The . [facility] CHEM PANEL Calcium Lvl 8.7 mg/dL 8.5 - 10.5 02/14 [facility] CHEM PANEL CO2 24 meq/L 24 - 32 02/14 [facility] CHEM PANEL Chloride Lvl 99 meq/L 95 - 109 02/14 [facility] CHEM PANEL Potassium 3.7 meq/L 3.5 - 5.1 02/14 The Lvl /2015 [facility] CHEM PANEL BUN 16 mg/dL 7 - 22 02/14 The [facility] CHEM PANEL Glucose Lvl 128 mg/dL 70 - 99 02/14 The [facility] CHEM PANEL Sodium Lvl 134 meq/L 135 - 145 02/14 The [facility] CHEM PANEL Creatinine 1.42 mg/dL 0.50 - 02/14 The Lvl 1.40 [facility] CHEM PANEL eGFR 51 02/13 Result Comment: The eGFR is calculated using the CKD-EPI formula. In most young, healthy individuals the eGFR will be >90 mL/ min/1.73m2. The eGFR declines with age. An eGFR of 60-89 may be normal in The mL/min/1.7 some populations, particularly the elderly, for whom the CKD-EPI formula has not been extensively validated. Use of the eGFR is not recommended in the following populations: [address] Individuals with unstable creatinine concentrations, including patients and those with serious co-morbid conditions. Patients with extremes in muscle mass or diet. The data above are obtained from the National Kidney Disease Education Program (NKDEP) which additionally recommends that when the eGFR is used in patients with extremes of body mass index for purposes of drug dosing, the eGFR should be multiplied by the estimated BMI. CHEM PANEL Bili Total 0.8 mg/dL 0.2 - 1.3 02/13 Result Comment: [facility] reviewed all results 02/14/2016 06:35 [facility] CHEM PANEL ALT 25 unit/L 0 - 65 02/13 The [facility] CHEM PANEL AST 15 unit/L 0 - 37 02/13 The [facility] CHEM PANEL Alk Phos 62 unit/L 39 - 136 02/13 The [facility] CHEM PANEL Globulin 4.8 g/dL 2.7 - 4.2 02/13 The [facility] CHEM PANEL A/G Ratio 0.5 0.7 - 1.6 02/13 The [facility] CHEM PANEL Calcium Lvl 9.0 mg/dL 8.5 - 10.5 02/13 The [facility] CHEM PANEL Glucose Lvl 109 mg/dL 70 - 99 02/13 The [facility] CHEM PANEL CO2 24 meq/L 24 - 32 02/13 The [facility] CHEM PANEL Chloride Lvl 101 meq/L 95 - 109 02/13 The [facility] CHEM PANEL BUN 17 mg/dL 7 - 22 02/13 The [facility] CHEM PANEL Potassium 4.1 meq/L 3.5 - 5.1 02/13 The Lvl /2015 [facility] CHEM PANEL AGAP 14.1 meq/L 10.0 - 02/13 The 20.0 [facility] CHEM PANEL Albumin Lvl 2.3 g/dL 3.5 - 5.0 02/13 The [facility] CHEM PANEL Total 7.1 g/dL 6.4 - 8.4 02/13 The Protein /2015 [facility] CHEM PANEL Creatinine 1.55 mg/dL 0.50 - 02/13 The Lvl 1.40 [facility] CHEM PANEL Sodium Lvl 135 meq/L 135 - 145 02/13 The [facility] CHEM PANEL B/C Ratio 11 6 - 25 02/13 The [facility] HEMATOLOGY MPV 7.7 fL 7.4 - 10.4 02/13 The [facility] HEMATOLOGY Hct 25.4 % 42.0 - 02/13 The 54.0 [facility] HEMATOLOGY MCH 32.7 pg 27.0 - 02/13 The 31.0 [facility] HEMATOLOGY MCV 96.6 fL 80.0 - 02/13 The 94.0 [facility] HEMATOLOGY Platelet 296 K/CMM 133 - 450 02/13 The [facility] HEMATOLOGY RDW 14.7 % 11.5 - 02/13 The 14.5 [facility] HEMATOLOGY MCHC 33.8 g/dL 32.0 - 02/13 The 36.0 [facility] HEMATOLOGY WBC 8.4 K/CMM 3.7 - 10.4 02/13 The [facility] HEMATOLOGY Hgb 8.6 g/dL 14.0 - 02/13 The 18.0 [facility] HEMATOLOGY RBC 2.63 M/CMM 4.70 - 02/13 The 6.10 [facility] HEMATOLOGY Lymphocytes 1.5 K/CMM 1.0 - 5.5 02/13 The # /2015 [facility] HEMATOLOGY Eosinophils 0.2 K/CMM 0.0 - 0.5 02/13 The # [facility] HEMATOLOGY Monocytes # 0.8 K/CMM 0.0 - 0.8 02/13 MH The [facility] HEMATOLOGY Basophils # 0.1 K/CMM 0.0 - 0.2 02/13 The [facility] HEMATOLOGY Monocytes 9.9 % 2.0 - 12.0 02/13 The [facility] HEMATOLOGY Lymphocytes 17.2 % 20.0 - 02/13 MH The 40.0 [facility] HEMATOLOGY Segs 69.8 % 45.0 - 02/13 MH The 75.0 [facility] HEMATOLOGY Eosinophils 2.2 % 0.0 - 4.0 02/13 The [facility] HEMATOLOGY Segs-Bands # 5.9 K/CMM 1.5 - 8.1 02/13 [facility] HEMATOLOGY Basophils 0.9 % 0.0 - 1.0 02/13 The [facility] Foot Foot series Clinical Indication: Pain and swelling. Post surgery. The series DX DX - [facility] Comparison: 01/31/2016. Read by: Samson Ramirez MD Dictated Date/time: 02/13/16 19:20 Electronically Signed by: Samson Ramirez MD 02/13/16 19:22 FINAL REPORT FINDINGS: The 4 views of the foot show interval postsurgical changes status post transmetatarsal amputations at the level of the proximal metatarsals. Soft tissue swelling and soft tissue gas is noted at the stum p site, related to the recent surgery. The mid tarsal joints and subtalar joint show mild degenerative changes. Small plantar calcaneal spur is noted. Follow-up radiographs may be obtained for complete assessment. IMPRESSION: 1. Interval postsurgical changes of the right foot status post transmetatarsal amputation, as noted above. SL: [id number] CHEM PANEL Total 6.3 g/dL 6.4 - 8.4 02/12 The Protein [facility] CHEM PANEL A/G Ratio 0.7 0.7 - 1.6 02/12 [facility] CHEM PANEL B/C Ratio 12 6 - 25 02/12 [facility] CHEM PANEL Globulin 3.8 g/dL 2.7 - 4.2 02/12 [facility] CHEM PANEL AST 12 unit/L 0 - 37 02/12 [facility] CHEM PANEL Alk Phos 61 unit/L 39 - 136 02/12 The [facility] CHEM PANEL Albumin Lvl 2.5 g/dL 3.5 - 5.0 02/12 [facility] CHEM PANEL ALT 26 unit/L 0 - 65 02/12 [facility] CHEM PANEL Bili Total 0.4 mg/dL 0.2 - 1.3 02/12 [facility] CHEM PANEL AGAP 13.5 meq/L 10.0 - 02/12 The 20.0 [facility] CHEM PANEL eGFR 57 02/12 Result Comment: The eGFR is calculated using the CKD-EPI formula. In most young, healthy individuals the eGFR will be >90 mL/ min/1.73m2. The eGFR declines with age. An eGFR of 60-89 may be normal in The mL/min/1. some populations, particularly the elderly, for whom the CKD-EPI formula has not been extensively validated. Use of the eGFR is not recommended in the following populations: [address] Individuals with unstable creatinine concentrations, including patients and those with serious co-morbid conditions. Patients with extremes in muscle mass or diet. The data above are obtained from the National Kidney Disease Education Program (NKDEP) which additionally recommends that when the eGFR is used in patients with extremes of body mass index for purposes of drug dosing, the eGFR should be multiplied by the estimated BMI. CHEM PANEL CO2 27 meq/L 24 - 32 02/12 [facility] CHEM PANEL Calcium Lvl 8.7 mg/dL 8.5 - 10.5 02/12 [facility] CHEM PANEL Chloride Lvl 100 meq/L 95 - 109 02/12 [facility] CHEM PANEL Potassium 4.5 meq/L 3.5 - 5.1 02/12 The Lvl [facility] CHEM PANEL Creatinine 1.42 mg/dL 0.50 - 02/12 MH The Lvl 1.40 [facility] CHEM PANEL Sodium Lvl 136 meq/L 135 - 145 02/12 The [facility] CHEM PANEL Glucose Lvl 105 mg/dL 70 - 99 02/12 The [facility] CHEM PANEL BUN 17 mg/dL 7 - 22 02/12 [facility] CHEM PANEL Phosphorus 4.9 mg/dL 2.5 - 4.5 02/11 The /2015 [facility] CHEM PANEL Magnesium 1.8 mg/dL 1.8 - 2.4 02/11 MH The Lvl /2015 [facility] HEMATOLOGY Segs 70.5 % 45.0 - 02/11 MH The 75.0 [facility] HEMATOLOGY Lymphocytes 18.0 % 20.0 - 02/11 MH The 40.0 [facility] HEMATOLOGY Monocytes 9.7 % 2.0 - 12.0 02/11 The [facility] HEMATOLOGY Segs-Bands # 6.4 K/CMM 1.5 - 8.1 02/11 The [facility] HEMATOLOGY Lymphocytes 1.6 K/CMM 1.0 - 5.5 02/11 MH The [facility] HEMATOLOGY Basophils 0.5 % 0.0 - 1.0 02/11 MH The [facility] HEMATOLOGY Eosinophils 1.3 % 0.0 - 4.0 02/11 MH The [facility] HEMATOLOGY Monocytes # 0.9 K/CMM 0.0 - 0.8 02/11 The [facility] HEMATOLOGY Eosinophils 0.1 K/CMM 0.0 - 0.5 02/11 MH The # [facility] HEMATOLOGY Platelet 307 K/CMM 133 - 450 02/11 The [facility] HEMATOLOGY MPV 6.9 fL 7.4 - 10.4 02/11 The [facility] HEMATOLOGY MCHC 33.9 g/dL 32.0 - 02/11 The 36.0 [facility] HEMATOLOGY RDW 15.1 % 11.5 - 02/11 MH The 14.5 [facility] HEMATOLOGY RBC 2.69 M/CMM 4.70 - 02/11 The 6.10 [facility] HEMATOLOGY MCV 96.5 fL 80.0 - 02/11 MH The 94.0 [facility] HEMATOLOGY WBC 9.1 K/CMM 3.7 - 10.4 02/11 The [facility] HEMATOLOGY Hgb 8.8 g/dL 14.0 - 02/11 MH The 18.0 [facility] HEMATOLOGY Hct 26.0 % 42.0 - 02/11 MH The 54.0 [facility] HEMATOLOGY MCH 32.7 pg 27.0 - 02/11 MH The 31.0 [facility] HEMATOLOGY Segs-Bands # 7.7 K/CMM 1.5 - 8.1 02/11 The [facility] HEMATOLOGY Basophils 1.5 % 0.0 - 1.0 02/11 The [facility] HEMATOLOGY Basophils # 0.2 K/CMM 0.0 - 0.2 02/11 MH The [facility] HEMATOLOGY Eosinophils 0.2 K/CMM 0.0 - 0.5 02/11 MH The # /2015 [facility] HEMATOLOGY Monocytes # 1.2 K/CMM 0.0 - 0.8 02/11 The [facility] HEMATOLOGY Segs 69.4 % 45.0 - 02/11 MH The 75.0 [facility] HEMATOLOGY Monocytes 10.5 % 2.0 - 12.0 02/11 The [facility] HEMATOLOGY Eosinophils 1.6 % 0.0 - 4.0 02/11 The [facility] HEMATOLOGY Lymphocytes 1.9 K/CMM 1.0 - 5.5 02/11 MH The # /2015 [facility] HEMATOLOGY Lymphocytes 17.0 % 20.0 - 02/11 The 40.0 [facility] HEMATOLOGY Hct 28.9 % 42.0 - 02/11 The 54.0 [facility] HEMATOLOGY MCHC 33.6 g/dL 32.0 - 02/11 The 36.0 [facility] HEMATOLOGY RDW 14.6 % 11.5 - 02/11 The 14.5 [facility] HEMATOLOGY MCV 96.6 fL 80.0 - 02/11 The 94.0 [facility] HEMATOLOGY MCH 32.4 pg 27.0 - 02/11 The 31.0 [facility] HEMATOLOGY Hgb 9.7 g/dL 14.0 - 02/11 The 18.0 [facility] HEMATOLOGY WBC 11.1 K/CMM 3.7 - 10.4 02/11 The [facility] HEMATOLOGY RBC 2.99 M/CMM 4.70 - 02/11 The 6.10 [facility] HEMATOLOGY Platelet 360 K/CMM 133 - 450 02/11 MH The [facility] HEMATOLOGY MPV 7.4 fL 7.4 - 10.4 02/11 The [facility] HEMATOLOGY Basophils # 0.1 K/CMM 0.0 - 0.2 02/09 The [facility] HEMATOLOGY Sed Rate null 0 - 15 02/08 The [facility] BLOOD BANK Antibody Negative 02/07 The RESULTS Scrn [facility] (02/08/16 5:38 AM) BLOOD BANK ABO/Rh B POS 02/07 The RESULTS [facility] CHEM PANEL Procalcitoni 0.11 ng/mL 0.00 - 02/07 The n Lvl 0.10 [facility] URINE AND UA Sq Epi None Seen 02/04 The STOOL [facility] URINE AND UA <=1.0 0.1 - 1.0 02/04 The STOOL Urobilinogen mg/dL lands URINE AND UA Leuk Est Negative Negative 02/04 The STOOL [facility] (02/05/16 12:36 AM) URINE AND UA Bacteria Occasional None Seen 02/04 The STOOL /HPF /HPF lands URINE AND UA WBC 1 /HPF 0 - 5 02/04 The lands URINE AND UA Blood Negative Negative 02/04 The STOOL lands (02/05/16 12:36 AM) URINE AND UA Bili Negative Negative 02/04 The lands *NA* (02/05/16 12:36 AM) URINE AND UA Nitrite Negative Negative 02/04 The STOOL [facility] (02/05/16 12:36 AM) URINE AND UA Glucose Negative Negative 02/04 The STOOL mg/dL mg/dL lands URINE AND UA Protein Negative Negative 02/04 The STOOL mg/dL mg/dL lands URINE AND UA Turbidity Clear Clear 02/04 The STOOL lands (02/05/16 12:36 AM) URINE AND UA pH 6.0 5.0 - 8.0 02/04 The lands URINE AND UA Color Light Yellow Yellow 02/04 The lands *NA* (02/05/16 12:36 AM) URINE AND UA Ketones Negative Negative 02/04 The STOOL mg/dL mg/dL lands URINE AND UA Spec Grav 1.006 <=1.030 02/04 The [facility] Abdominal Abdominal Clinical Indication: Gangrene; right foot gangrene. - MH The Aorta with Aorta with /2015 - [facility] runoff CTA runoff CTA Comparison: None Read by: Jaciel Atkinson MD Dictated Date/time: 02/03/16 14:29 TECHNIQUE: CT angiography of the abdomen, pelvis, and bilateral lower extremities was performed after administration of iodinated contrast. Coronal and sagittal reconstructions were obtained. 3-D recons Electronically Signed by: Jaciel Atkinson MD 02/03/16 14:47 truction imaging, MIP with postprocessing was also performed of the arterial vessels. FINAL REPORT IV CONTRAST: [address] Radiation Dose DLP 1418 mGy-cm FINDINGS: ARTERIAL EVALUATION: Advanced multifocal atherosclerosis of the infrarenal aorta. No evidence of aneurysm or dissection. Multifocal atherosclerosis throughout the celiac axis, superior and inferior mesenteric arteries without significant focal stenosis. The peripheral the cerebral branches are patent. Atherosclerotic plaque is seen in the bilateral renal arteries and intrarenal branches, without CT evidence of renal artery stenosis. RIGHT LOWER EXTREMITY: Aortoiliac inflow: The common iliac and external iliac arteries demonstrate advanced multifocal atherosclerosis without significant stenosis or occlusion. Femoral-popliteal outflow: There is a severe focal stenosis of the right common femoral artery (greater than 80%), which extends into the proximal SFA. The PFA is patent. There is severe multifocal athe rosclerosis throughout the course of the right SFA with multifocal stenosis. No definite areas of occlusion. Moderate atherosclerosis of the popliteal artery without definite focal stenosis. Infrapopliteal runoff: The anterior tibial, posterior tibial, and peroneal arteries are patent. The dosalis pedis artery is patent. LEFT LOWER EXTREMITY: Aortoiliac inflow: The common iliac and external iliac arteries demonstrate advanced multifocal atherosclerosis without significant stenosis or occlusion. Femoral-popliteal outflow: Severe multifocal atherosclerosis is seen, and and superficial femoral artery. The PFA is patent. Moderate atherosclerosis of the popliteal artery without focal stenosis. Infrapopliteal runoff: The anterior tibial, posterior tibial, and peroneal arteries are patent. The dosalis pedis artery is patent. VISUALIZED LUNG BASES: Unremarkable. ABDOMINAL SOLID ORGANS: The arterial phase contrast-enhanced images of the liver, spleen, pancreas, kidneys and adrenals are unremarkable. The gallbladder is present. PERITONEUM AND RETROPERITONEUM: There is no retroperitoneal or abdominal lymphadenopathy. There is no abdominal ascites. STOMACH AND BOWEL: No evidence of bowel obstruction. No bowel wall thickening or perienteric inflammation. BLADDER: The bladder is unremarkable. OSSEOUS STRUCTURES: Advanced multifocal degenerative disc disease of the lumbar spine. Prior amputation of the distal right 1st and 2nd ray. Soft tissue ulceration overlying the 1st metatarsal stump wit h soft tissue ulceration along the plantar aspect of the lateral foot and soft tissue gas. Metacarpal phalangeal joint. IMPRESSION: 1. Focal severe stenosis of the right common femoral artery (greater than 80%). 2. Severe multifocal atherosclerosis throughout the superficial femoral arteries bilaterally with preserved popliteal and three-vessel runoff below the knee. 3. Advanced multifocal atherosclerosis of the aorta. No aneurysm or dissection. 4. Soft tissue ulceration of the distal right foot with prior amputation of the distal 1st and 2nd rays. Soft tissue gas adjacent to the 5th metatarsal head and 5th MCP is concerning for osteomyelitis. SL: [id number] URINE AND UA Sq Epi None Seen 01/31 The [facility] URINE AND UA <=1.0 0.1 - 1.0 01/31 The STOOL Urobilinogen mg/dL [facility] URINE AND UA Blood Negative Negative 01/31 The [facility] (02/01/16 4:31 PM) URINE AND UA Nitrite Negative Negative 01/31 The [facility] (02/01/16 4:31 PM) URINE AND UA Leuk Est Negative Negative 01/31 The [facility] (02/01/16 4:31 PM) URINE AND UA WBC 1 /HPF 0 - 5 01/31 The [facility] URINE AND UA Hyal Cast 3 /LPF 0 - 2 01/31 The [facility] URINE AND UA pH 5.5 5.0 - 8.0 01/31 The [facility] URINE AND UA Glucose Negative Negative 01/31 The STOOL mg/dL mg/dL [facility] URINE AND UA Ketones Negative Negative 01/31 The STOOL mg/dL mg/dL [facility] URINE AND UA Bili Negative Negative 01/31 The [facility] *NA* (02/01/16 4:31 PM) URINE AND UA Protein Negative Negative 01/31 The STOOL mg/dL mg/dL [facility] URINE AND UA Color Yellow Yellow 01/31 The [facility] *NA* (02/01/16 4:31 PM) URINE AND UA Turbidity Clear Clear 01/31 The [facility] (02/01/16 4:31 PM) URINE AND UA Spec Grav 1.007 <=1.030 01/31 MH The STOOL [facility] URINE CHEM U Chloride 41 meq/L 01/31 The [facility] URINE CHEM U Creatinine 70.40 01/31 The mg/dL [facility] URINE CHEM U Sodium 38 meq/L 01/31 The [facility] Retroperit Retroperiton Clinical Indication: Renal insufficiency 01/31 - The talbot eal limited /2015 - [facility] US Comparison: None Read by: Ky Woods MD Dictated Date/time: 02/01/16 21:24 TECHNIQUE: Electronically Signed by: Ky Woods MD 02/01/16 21:25 FINAL REPORT Multiple longitudinal and transverse real time sonographic images of the kidneys and urinary bladder are obtained. FINDINGS: KIDNEY: The right kidney measures 10.2 cm. The left kidney measures 11.8 cm. Both kidneys demonstrate normal echotexture. No solid renal masses. No echogenic intrarenal foci to suggest calculi. No hydronephrosis. No perinephric fluid collections. BLADDER: Scanning through the pelvis reveals the bladder to be partially distended with anechoic urine and layering echogenic debris. Bilateral ureteral jets are noted. IMPRESSION: 1. Layering echogenic debris of the bladder. Correlation with urinalysis recommended as findings can be seen with hematuria or urinary tract infection. SL: [id number] CARDIAC Troponin-I null 0.00 - 01/30 The ENZYMES 0.40 /2015 [facility] CHEM PANEL Procalcitoni 0.13 ng/mL 0.00 - 01/30 The n Lvl 0.10 [facility] CHEM PANEL Lactic Acid 1.7 mMol/L 0.5 - 2.2 01/30 The Lvl /2015 [facility] CHEM PANEL Bili Total 0.4 mg/dL 0.2 - 1.3 01/30 The [facility] CHEM PANEL Total 7.7 g/dL 6.4 - 8.4 01/30 The Protein [facility] CHEM PANEL AST 19 unit/L 0 - 37 01/30 The [facility] CHEM PANEL ALT 23 unit/L 0 - 65 01/30 The [facility] CHEM PANEL Alk Phos 58 unit/L 39 - 136 01/30 The [facility] CHEM PANEL Albumin Lvl 2.8 g/dL 3.5 - 5.0 01/30 [facility] CHEM PANEL A/G Ratio 0.6 0.7 - 1.6 01/30 [facility] CHEM PANEL Globulin 4.9 g/dL 2.7 - 4.2 01/30 [facility] CHEM PANEL B/C Ratio 15 6 - 25 01/30 The [facility] HEMATOLOGY PTT 42.4 s 22.9 - 01/30 The 35.8 [facility] HEMATOLOGY PT 14.6 s 12.0 - 01/30 The 14.7 [facility] HEMATOLOGY INR 1.11 0.85 - 01/30 The 1.17 [facility] Ext Lower Ext Lower Clinical Indication: Right leg claudication and leg ulcer. 01/30 - The Arterial Arterial /2015 [facility] Doppler Doppler Comparison: None unilat US unilat US Read by: Samson Ramirez MD Dictated Date/time: 01/31/16 20:20 Electronically Signed by: Samson Ramirez MD 01/31/16 20:25 FINAL REPORT TECHNIQUE: Sonographic evaluation of the right lower extremity arteries was performed with grayscale and color Doppler imaging with standard technique. FINDINGS: RIGHT: ROPE CLEANER: Monophasic waveforms with severely decreased peak systolic velocities. SFA: Monophasic waveforms. Spectral broadening. Mildly decreased peak systolic velocities. This may be related to collateral flow. POP: Monophasic waveforms. Spectral broadening with moderately decreased peak systolic velocities. HAND CLOTH CUTTER: Monophasic waveforms. Spectral broadening with severely decreased peak systolic velocities. ADAMA: Monophasic waveforms. Spectral broadening with moderate to severely decreased peak systolic velocities. DP: Monophasic waveforms. Spectral broadening with severely decreased peak systolic velocities. Recommended CTA, MRA or conventional angiography for complete assessment. IMPRESSION: 1. Severely decreased peak systolic velocities of the right common femoral artery, which may be related to severe stenosis or near occlusion. 2. Monophasic waveforms throughout the right lower extremity with spectral broadening of the waveforms. Mild superficial femoral artery, moderate popliteal artery, severe posterior tibial artery, modera te to severe anterior tibial artery and severe dorsalis pedis artery decreased peak systolic velocities. These findings may be related to collateral flow with superimposed other distal areas of arterial occlusive disease. Recommended CTA, MRA or conventional angiography for complete assessment. SL: [id number] Foot Foot series Clinical Indication: Pain and swelling , status post amputation 4 years ago 01/30 - The series DX DX - [facility] Comparison: None Read by: Ky Woods MD Dictated Date/time: 01/31/16 15:30 FINDINGS: Electronically Signed by: Ky Woods MD 01/31/16 15:31 FINAL REPORT 3 views of the right foot. Transmetatarsal 1st and 2nd ray amputation. No erosive change or periostitis to suggest osteomyelitis of the metatarsal stumps. No acute fracture or dislocation. No soft tissue gas or radiopaque foreign body. IMPRESSION: Postoperative change. No acute osseous changes. If there is continued concern, MRI (preferred) or three-phase bone scan of the right foot may be beneficial. SL: [id number] LIPIDS VLDL 77 02/16 MH The [facility] LIPIDS HDL 29 mg/dL >=61 mg/dL 02/16 The [facility] LIPIDS Chol 222 mg/dL <=199 02/16 MH The mg/dL [facility] LIPIDS CHD Risk 7.66 4.00 - 02/16 The 7.30 [facility] LIPIDS Trig 384 mg/dL <=149 02/16 MH The mg/dL [facility] LIPIDS LDL 116 mg/dL <=99 mg/dL 02/16 The (Calculated) [facility] CARDIAC CK MB Index 0.8 0.0 - 2.5 02/16 The ENZYMES [facility] CARDIAC CK MB 0.6 ng/mL 0.5 - 3.6 02/16 The [facility] CARDIAC Troponin-I null 0.00 - 02/16 The ENZYMES 0.40 [facility] CARDIAC Total CK 76 unit/L - 02/16 The ENZYMES [facility] CARDIAC Troponin-I null 0.00 - 02/16 The ENZYMES 0.40 [facility] CARDIAC Total CK 89 unit/L - 02/16 The ENZYMES [facility] CARDIAC CK MB Index 1.0 0.0 - 2.5 02/16 The ENZYMES [facility] CARDIAC CK MB 0.9 ng/mL 0.5 - 3.6 02/16 The ENZYMES [facility] THYROID TSH 2.000 0.360 - 02/16 The PANEL uIU/mL 3.740 [facility] CARDIAC CK MB Index 0.8 0.0 - 2.5 02/15 MH The ENZYMES /2014 [facility] CARDIAC Troponin-I null 0.00 - 02/15 MH The ENZYMES 0.40 /2014 [facility] CARDIAC Total CK 111 unit/L 12 - 191 02/15 MH The ENZYMES [facility] CARDIAC CK MB 0.9 ng/mL 0.5 - 3.6 02/15 MH The ENZYMES [facility] CHEM PANEL eGFR 70 02/15 Result Comment: The eGFR is calculated using the CKD-EPI formula. In most young, healthy individuals the eGFR will be >90 mL/ min/1.73m2. The eGFR declines with age. An eGFR of 60-89 may be normal in The mL/min/1.7 /2014 some populations, particularly the elderly, for whom the CKD-EPI formula has not been extensively validated. Use of the eGFR is not recommended in the following populations: [address] Individuals with unstable creatinine concentrations, including patients and those with serious co-morbid conditions. Patients with extremes in muscle mass or diet. The data above are obtained from the National Kidney Disease Education Program (NKDEP) which additionally recommends that when the eGFR is used in patients with extremes of body mass index for purposes of drug dosing, the eGFR should be multiplied by the estimated BMI. CHEM PANEL Alk Phos 87 unit/L 39 - 136 02/15 MH The [facility] CHEM PANEL AST 23 unit/L 0 - 37 02/15 MH The [facility] CHEM PANEL ALT 27 unit/L 0 - 65 02/15 MH The [facility] CHEM PANEL Albumin Lvl 3.4 g/dL 3.5 - 5.0 02/15 The [facility] CHEM PANEL Total 7.7 g/dL 6.4 - 8.4 02/15 The Protein [facility] CHEM PANEL A/G Ratio 0.8 0.7 - 1.6 02/15 MH The [facility] CHEM PANEL Globulin 4.3 g/dL 2.0 - 4.0 02/15 MH The [facility] CHEM PANEL B/C Ratio 6 6 - 25 02/15 MH The [facility] CHEM PANEL AGAP 11.8 meq/L 10.0 - 02/15 MH The 20.0 [facility] CHEM PANEL Bili Total 0.4 mg/dL 0.2 - 1.3 02/15 The [facility] CHEM PANEL Calcium Lvl 9.2 mg/dL 8.5 - 10.5 02/15 The [facility] CHEM PANEL CO2 25 meq/L 24 - 32 02/15 The [facility] CHEM PANEL Glucose Lvl 88 mg/dL 70 - 99 02/15 The [facility] CHEM PANEL Chloride Lvl 106 meq/L 95 - 109 02/15 The [facility] CHEM PANEL Potassium 4.8 meq/L 3.5 - 5.1 02/15 The [facility] CHEM PANEL Sodium Lvl 138 meq/L 135 - 145 02/15 The [facility] CHEM PANEL Creatinine 1.2 mg/dL 0.5 - 1.4 02/15 The [facility] CHEM PANEL BUN 7 mg/dL 7 - 22 02/15 The [facility] CHEM PANEL Magnesium 2.0 mg/dL 1.8 - 2.4 02/15 The l [facility] HEMATOLOGY Eosinophils 0.4 K/CMM 0.0 - 0.5 02/15 The # [facility] HEMATOLOGY Basophils # 0.0 K/CMM 0.0 - 0.2 02/15 The [facility] HEMATOLOGY Segs-Bands # 4.6 K/CMM 1.5 - 8.1 02/15 The [facility] HEMATOLOGY Monocytes # 0.8 K/CMM 0.0 - 0.8 02/15 The [facility] HEMATOLOGY Monocytes 10.3 % 2.0 - 12.0 02/15 The [facility] HEMATOLOGY Eosinophils 5.0 % 0.0 - 4.0 02/15 The [facility] HEMATOLOGY Basophils 0.4 % 0.0 - 1.0 02/15 The [facility] HEMATOLOGY Lymphocytes 25.7 % 20.0 - 02/15 MH The 40.0 [facility] HEMATOLOGY Lymphocytes 2.0 K/CMM 1.0 - 5.5 02/15 The [facility] HEMATOLOGY Segs 58.6 % 45.0 - 02/15 MH The 75.0 [facility] HEMATOLOGY INR 1.00 0.85 - 02/15 MH The 1.17 [facility] HEMATOLOGY PT 13.5 s 12.0 - 02/15 MH The 14.7 [facility] HEMATOLOGY PTT 33.7 s 22.9 - 02/15 The 35.8 /2014 [facility] HEMATOLOGY Platelet 170 K/CMM 133 - 450 02/15 The [facility] HEMATOLOGY WBC 7.8 K/CMM 3.7 - 10.4 02/15 The [facility] HEMATOLOGY MCH 33.3 pg 27.0 - 02/15 The 31.0 /2014 [facility] HEMATOLOGY RBC 4.62 M/CMM 4.70 - 02/15 The 6.10 [facility] HEMATOLOGY MCV 97.4 fL 80.0 - 02/15 The 94.0 [facility] HEMATOLOGY Hgb 15.4 g/dL 14.0 - 02/15 The 18.0 /2014 [facility] HEMATOLOGY Hct 45.0 % 42.0 - 02/15 The 54.0 [facility] HEMATOLOGY MCHC 34.2 g/dL 32.0 - 02/15 The 36.0 [facility] HEMATOLOGY MPV 7.0 fL 7.4 - 10.4 02/15 The [facility] HEMATOLOGY RDW 16.0 % 11.5 - 02/15 The 14.5 [facility] Chest 2 Chest 2 NAME: REMEDIOS SANCHEZ 02/15 - The views DX views DX [facility] : 1965 SEX: M Ordering Physician: Jaciel De Read by: Parveen Solares MD Dictated Date/time: 02/15/15 13:57 Chest 2 views : Feb 15, 2015 01:43:00 PM. Electronically Signed by: Parveen Solares MD 02/15/15 13:58 FINAL REPORT CLINICAL INDICATION: chest pain; smoker / See Clinic Indication Comparison Examination: October 20, 2013. FINDINGS: The PA and lateral chest radiographs show normal lung volumes without consolidations, interstitial opacities, pleural effusions or pneumothorax. The heart size and pulmonary vasculature are normal. The mediastinal contour appears unremarkable. The trachea is midline. There are no clinically significant osseous abnormalities noted. IMPRESSION: 1. No acute cardiopulmonary disease. SL: 24 Wrist Wrist NAME: REMEDIOS SANCHEZ 02/09 - The complete complete DX /2014 [facility] DX : 1965 SEX: M Ordering Physician: Víctor Wasserman Read by: Ky Woods MD Dictated Date/time: 02/09/15 15:49 Wrist complete ( min.3 views) : Feb 09, 2015 03:45:00 PM. Electronically Signed by: Ky Woods MD 02/09/15 15 :50 FINAL REPORT CLINICAL INDICATION: Pain and swelling / See Clinic Indication Comparison Examination: None. FINDINGS: Four views of the left wrist were performed. No evidence of acute fracture or dislocation. No destructive osseous lesions seen. Overlying soft tissues are unremarkable. Follow-up radiographs are recommended in 7-10 days to exclude an occult fracture if clinical symptoms persist. IMPRESSION: 1. No acute osseous injury of the left wrist. SL: 24 DRUG U Cocaine Negative Negative 01/23 The SCREEN Scr [facility] *NA* (01/23/15 3:10 PM) DRUG U Opiate Scr Negative Negative 01/23 The [facility] *NA* (01/23/15 3:10 PM) DRUG U Cannab Scr Negative Negative 01/23 The [facility] *NA* (01/23/15 3:10 PM) DRUG U Phencyc Negative Negative 01/23 The SCREEN [facility] *NA* (01/23/15 3:10 PM) DRUG UDS Note See Note 01/23 The [facility] (01/23/15 3:10 PM) DRUG U Shoshana Scr Negative Negative 01/23 The [facility] *NA* (01/23/15 3:10 PM) DRUG U Benzodia Positive Negative 01/23 The SCREEN [facility] *ABN* (01/23/15 3:10 PM) DRUG U Amph Scr Negative Negative 01/23 The [facility] *NA* (01/23/15 3:10 PM) URINE AND UA <=1.0 0.1 - 1.0 01/23 The STOOL Urobilinogen mg/dL /2014 [facility] URINE AND UA Glucose Negative Negative 01/23 The STOOL mg/dL mg/dL [facility] URINE AND UA Sq Epi Few /LPF Few /LPF 01/23 The STOOL /2014 [facility] URINE AND UA Leuk Est Negative Negative 01/23 The STOOL /2014 [facility] (01/23/15 3:10 PM) URINE AND UA Nitrite Negative Negative 01/23 MH The STOOL /2014 [facility] (01/23/15 3:10 PM) URINE AND UA Bacteria Occasional None Seen 01/23 The STOOL /HPF /HPF lands URINE AND UA RBC 3 /HPF 0 - 2 01/23 The STOOL lands URINE AND UA WBC null 0 - 5 01/23 The STOOL lands URINE AND UA Hyal Cast 5 /LPF 0 - 2 01/23 The STOOL lands URINE AND UA Amorph Occasional None Seen 01/23 The STOOL Brisa /HPF /HPF lands URINE AND UA Mucus Few /LPF None Seen 01/23 The STOOL /LPF /2014lands URINE AND UA Color Yellow Yellow 01/23 The STOOL lands *NA* (01/23/15 3:10 PM) URINE AND UA Protein 200 mg/dL Negative 01/23 The STOOL mg/dL lands URINE AND UA pH 6.0 5.0 - 8.0 01/23 The lands URINE AND UA Spec Grav 1.017 <=1.030 01/23 The STOOL lands URINE AND UA Turbidity Slight Clear 01/23 The lands *ABN* (01/23/15 3:10 PM) URINE AND UA Blood Moderate Negative 01/23 The [facility] *ABN* (01/23/15 3:10 PM) URINE AND UA Bili Negative Negative 01/23 The [facility] *NA* (01/23/15 3:10 PM) URINE AND UA Ketones Trace Negative 01/23 The STOOL mg/dL mg/dL lands URINE AND UA Sperm Occasional None Seen 01/23 The STOOL /HPF /HPF [facility] CARDIAC CK MB Index 0.7 0.0 - 2.5 01/23 The ENZYMES [facility] CARDIAC Troponin-I null 0.00 - 01/23 The ENZYMES 0.40 [facility] CARDIAC Total CK 170 unit/L 12 - 191 01/23 The ENZYMES lands CARDIAC CK MB 1.2 ng/mL 0.5 - 3.6 01/23 The ENZYMES [facility] CHEM PANEL eGFR 54 01/23 Result Comment: The eGFR is calculated using the CKD-EPI formula. In most young, healthy individuals the eGFR will be >90 mL/ min/1.73m2. The eGFR declines with age. An eGFR of 60-89 may be normal in The mL/min/1.7 some populations, particularly the elderly, for whom the CKD-EPI formula has not been extensively validated. Use of the eGFR is not recommended in the following populations: [address] Individuals with unstable creatinine concentrations, including patients and those with serious co-morbid conditions. Patients with extremes in muscle mass or diet. The data above are obtained from the National Kidney Disease Education Program (NKDEP) which additionally recommends that when the eGFR is used in patients with extremes of body mass index for purposes of drug dosing, the eGFR should be multiplied by the estimated BMI. CHEM PANEL A/G Ratio 1.0 0.7 - 1.6 01/23 [facility] CHEM PANEL AST 23 unit/L 0 - 37 01/23 The [facility] CHEM PANEL Albumin Lvl 4.3 g/dL 3.5 - 5.0 01/23 [facility] CHEM PANEL ALT 39 unit/L 0 - 65 01/23 The [facility] CHEM PANEL Total 8.8 g/dL 6.4 - 8.4 01/23 The Protein [facility] CHEM PANEL Calcium Lvl 9.3 mg/dL 8.5 - 10.5 01/23 The [facility] CHEM PANEL AGAP 20.5 meq/L 10.0 - 01/23 MH The 20.0 [facility] CHEM PANEL Globulin 4.5 g/dL 2.0 - 4.0 01/23 The [facility] CHEM PANEL B/C Ratio 10 6 - 25 01/23 The [facility] CHEM PANEL Bili Total 0.5 mg/dL 0.2 - 1.3 01/23 The [facility] CHEM PANEL Alk Phos 88 unit/L 39 - 136 01/23 The [facility] CHEM PANEL Potassium 4.5 meq/L 3.5 - 5.1 01/23 MH The Lvl [facility] CHEM PANEL Sodium Lvl 139 meq/L 135 - 145 01/23 The [facility] CHEM PANEL CO2 17 meq/L 24 - 32 01/23 The [facility] CHEM PANEL Chloride Lvl 106 meq/L 95 - 109 01/23 The [facility] CHEM PANEL Glucose Lvl 114 mg/dL 70 - 99 01/23 The [facility] CHEM PANEL Creatinine 1.5 mg/dL 0.5 - 1.4 01/23 The Lvl [facility] CHEM PANEL BUN 15 mg/dL 7 - 22 01/23 The [facility] HEMATOLOGY Segs 89.7 % 45.0 - 01/23 The 75.0 [facility] HEMATOLOGY Segs-Bands # 11.6 K/CMM 1.5 - 8.1 01/23 The [facility] HEMATOLOGY Lymphocytes 0.8 K/CMM 1.0 - 5.5 01/23 The [facility] HEMATOLOGY Lymphocytes 6.5 % 20.0 - 01/23 The 40.0 [facility] HEMATOLOGY Monocytes 3.2 % 2.0 - 12.0 01/23 The [facility] HEMATOLOGY Monocytes # 0.4 K/CMM 0.0 - 0.8 01/23 The [facility] HEMATOLOGY Eosinophils 0.0 K/CMM 0.0 - 0.5 01/23 The [facility] HEMATOLOGY Basophils # 0.1 K/CMM 0.0 - 0.2 01/23 The [facility] HEMATOLOGY Eosinophils 0.2 % 0.0 - 4.0 01/23 The [facility] HEMATOLOGY Basophils 0.4 % 0.0 - 1.0 01/23 The [facility] HEMATOLOGY PT 14.2 s 12.0 - 01/23 The . [facility] HEMATOLOGY INR 1.07 0.85 - 01/23 The 1.17 [facility] HEMATOLOGY PTT 31.2 s 22.9 - 01/23 The 35.8 [facility] HEMATOLOGY MPV 8.3 fL 7.4 - 10.4 01/23 The [facility] HEMATOLOGY MCHC 32.8 g/dL 32.0 - 01/23 The 36.0 [facility] HEMATOLOGY RDW 17.0 % 11.5 - 01/23 The 14. [facility] HEMATOLOGY Platelet 202 K/CMM 133 - 450 01/23 The [facility] HEMATOLOGY Hct 51.7 % 42.0 - 01/23 The 54.0 [facility] HEMATOLOGY MCV 97.9 fL 80.0 - 01/23 MH The 94.0 [facility] HEMATOLOGY MCH 32.1 pg 27.0 - 01/23 The 31.0 [facility] HEMATOLOGY Hgb 17.0 g/dL 14.0 - 01/23 The 18.0 [facility] HEMATOLOGY WBC 12.9 K/CMM 3.7 - 10.4 01/23 [facility] HEMATOLOGY RBC 5.28 M/CMM 4.70 - 01/23 The 6.10 [facility] Brain wo Brain wo Name: REMEDIOS SANCHEZ 01/23 - The contrast contrast CT /2014 - [facility] CT : 1965 Read by: Tayla Thorne MD Dictated Date/time: 01/23/15 16:01 SEX: M Electronically Signed by: Tayla Thorne MD 01/23/15 16:07 FINAL REPORT Ordering Physician: Tim Fry wo contrast CT : Jan 23, 2015 03:04:00 PM. CLINICAL INDICATION: Seizures Comparison Examination: None 2.[address] images are obtained from the skull base to the vertex. Sagittal and coronal reformats are acquired. Total examined DLP is 1180.2 mgy- CM. A small region of decreased attenuation is present in the genu of the corpus callosum on the left, associated with ex vacuo dilatation of the left frontal horn. The appearance could reflect ischemic riya nge, however, given the location, demyelination should be considered. No additional areas of abnormal density are identified within the cerebral or cerebellar hemispheres. The mace-white junction is int act. There is no evidence for intracranial mass, mass effect or extra- axial fluid collection. No intracranial hemorrhage is seen. The skull is intact. Mild mucosal thickening is present in the inferior left maxillary antrum. Moderate bilateral ethmoid, mild right sphenoid and mild bilateral frontal sinus opacification is present. Mastoids are clear. Orbits are grossly unremarkable. IMPRESSION: Is a small focus of decreased attenuation in the genu of the corpus callosum on the left, measuring approximately 1.5 x 0.5 x 0.5 cm. This is associated with ex vacuo dilatation of the frontal horn of t he left lateral ventricle. The appearance is nonspecific and could reflect chronic ischemic change; there is evidence for minimal chronic small vessel ischemic disease in the frontal white matter. Given the location within the corpus callosum, however, demyelination should be considered. MRI of the brain without and with contrast may be helpful. There is mild to moderate chronic pansinusitis. SL: 23 CHEM PANEL eGFR 71 11/20 1Result Comment: The eGFR is calculated using the CKD-EPI formula. In most young, healthy individuals the eGFR will be >90 mL/ min/1.73m2. The eGFR declines with age. An eGFR of 60-89 may be normal in The mL/min/1.7 some populations, particularly the elderly, for whom the CKD-EPI formula has not been extensively validated. Use of the eGFR is not recommended in the following populations: [address] Individuals with unstable creatinine concentrations, including patients and those with serious co-morbid conditions. Patients with extremes in muscle mass or diet. The data above are obtained from the National Kidney Disease Education Program (NKDEP) which additionally recommends that when the eGFR is used in patients with extremes of body mass index for purposes of drug dosing, the eGFR should be multiplied by the estimated BMI. CHEM PANEL Bili Total 0.3 mg/dL 0.2 - 1.3 11/20 [facility] CHEM PANEL AST 18 unit/L 0 - 37 11/20 [facility] CHEM PANEL Alk Phos 88 unit/L 39 - 136 11/20 [facility] CHEM PANEL ALT 36 unit/L 0 - 65 11/20 The [facility] CHEM PANEL Albumin Lvl 4.0 g/dL 3.5 - 5.0 11/20 [facility] CHEM PANEL Total 8.8 g/dL 6.4 - 8.4 11/20 The Protein [facility] CHEM PANEL CO2 22 meq/L 24 - 32 11/20 [facility] CHEM PANEL Calcium Lvl 9.5 mg/dL 8.5 - 10.5 11/20 [facility] CHEM PANEL Chloride Lvl 103 meq/L 95 - 109 11/20 [facility] CHEM PANEL Sodium Lvl 135 meq/L 135 - 145 11/20 [facility] CHEM PANEL Potassium 4.2 meq/L 3.5 - 5.1 11/20 The [facility] CHEM PANEL Creatinine 1.2 mg/dL 0.5 - 1.4 11/20 The Lvl [facility] CHEM PANEL Glucose Lvl 110 mg/dL 70 - 99 11/20 4Interpretive Data: Adult reference range values reflect the clinical guidelines MH of the [place] [employer]. [facility] CHEM PANEL BUN 7 mg/dL 7 - 22 11/20 The [facility] CHEM PANEL Globulin 4.8 g/dL 2.0 - 4.0 11/20 The [facility] CHEM PANEL A/G Ratio 0.8 0.7 - 1.6 11/20 The [facility] CHEM PANEL B/C Ratio 6 6 - 25 11/20 The [facility] CHEM PANEL AGAP 14.2 meq/L 10.0 - 11/20 The 20.0 [facility] HEMATOLOGY Eosinophils 3.2 % 0.0 - 4.0 11/20 The [facility] HEMATOLOGY Lymphocytes 16.7 % 20.0 - 11/20 The 40.0 [facility] HEMATOLOGY Monocytes 6.2 % 2.0 - 12.0 11/20 The [facility] HEMATOLOGY Segs 73.3 % 45.0 - 11/20 The 75.0 [facility] HEMATOLOGY Basophils 0.6 % 0.0 - 1.0 11/20 The [facility] HEMATOLOGY Basophils # 0.1 K/CMM 0.0 - 0.2 11/20 The [facility] HEMATOLOGY Eosinophils 0.3 K/CMM 0.0 - 0.5 11/20 The # [facility] HEMATOLOGY Monocytes # 0.6 K/CMM 0.0 - 0.8 11/20 The [facility] HEMATOLOGY Lymphocytes 1.6 K/CMM 1.0 - 5.5 11/20 The [facility] HEMATOLOGY Segs-Bands # 6.8 K/CMM 1.5 - 8.1 11/20 The [facility] HEMATOLOGY Platelet 170 K/CMM 133 - 450 11/20 The [facility] HEMATOLOGY MPV 7.6 fL 7.4 - 10.4 11/20 The [facility] HEMATOLOGY MCHC 33.8 g/dL 32.0 - 11/20 The 36.0 [facility] HEMATOLOGY RDW 14.2 % 11.5 - 11/20 The 14. [facility] HEMATOLOGY MCH 33.1 pg 27.0 - 11/20 The [facility] HEMATOLOGY MCV 97.9 fL 80.0 - 11/20 The [facility] HEMATOLOGY Hgb 14.2 g/dL 14.0 - 11/20 The [facility] HEMATOLOGY Hct 42.1 % 42.0 - 11/20 The [facility] HEMATOLOGY WBC 9.3 K/CMM 3.7 - 10.4 11/20 [facility] HEMATOLOGY RBC 4.30 M/CMM 4.70 - 11/20 The 11.04 [facility] CHEM PANEL eGFR 47 11/17 2Result Comment: The eGFR is calculated using the CKD-EPI formula. In most young, healthy individuals the eGFR will be >90 mL/ min/1.73m2. The eGFR declines with age. An eGFR of 60-89 may be normal in The mL/min/1. some populations, particularly the elderly, for whom the CKD-EPI formula has not been extensively validated. Use of the eGFR is not recommended in the following populations: [facility] 3m2 Individuals with unstable creatinine concentrations, including patients and those with serious co-morbid conditions. Patients with extremes in muscle mass or diet. The data above are obtained from the National Kidney Disease Education Program (NKDEP) which additionally recommends that when the eGFR is used in patients with extremes of body mass index for purposes of drug dosing, the eGFR should be multiplied by the estimated BMI. CHEM PANEL Creatinine 1.7 mg/dL 0.5 - 1.4 11/17 The [facility] CHEM PANEL BUN 14 mg/dL 7 - 11/17 [facility] ELECTROLYT Potassium 4.3 meq/L 3.5 - 5.1 11/17 The ES [facility] HEMATOLOGY Hct 36.8 % 42.0 - 11/17 The [facility] HEMATOLOGY MCV 97.6 fL 80.0 - 11/17 The [facility] HEMATOLOGY MCH 33.2 pg 27.0 - 11/17 The [facility] HEMATOLOGY Hgb 12.5 g/dL 14.0 - 11/17 The [facility] HEMATOLOGY WBC 7.7 K/CMM 3.7 - 10.4 11/17 The [facility] HEMATOLOGY RBC 3.77 M/CMM 4.70 - 11/17 The 6.10 [facility] HEMATOLOGY RDW 14.0 % 11.5 - 11/17 The 14. [facility] HEMATOLOGY Platelet 155 K/CMM 133 - 450 11/17 The [facility] HEMATOLOGY MPV 7.7 fL 7.4 - 10.4 11/17 The [facility] HEMATOLOGY MCHC 34.0 g/dL 32.0 - 11/17 The 36.0 [facility] HEMATOLOGY Segs-Bands # 5.7 K/CMM 1.5 - 8.1 11/17 The [facility] HEMATOLOGY Eosinophils 4.3 % 0.0 - 4.0 11/17 The [facility] HEMATOLOGY Basophils # 0.0 K/CMM 0.0 - 0.2 11/17 The [facility] HEMATOLOGY Basophils 0.3 % 0.0 - 1.0 11/17 The [facility] HEMATOLOGY Monocytes 5.1 % 2.0 - 12.0 11/17 The [facility] HEMATOLOGY Lymphocytes 16.3 % 20.0 - 11/17 The 40.0 [facility]AT[facility] Lymphocytes 1.2 K/CMM 1.0 - 5.5 11/17 The [facility]AT[facility] Eosinophils 0.3 K/CMM 0.0 - 0.5 11/17 The [facility]EMAT[facility] Monocytes # 0.4 K/CMM 0.0 - 0.8 11/17 The [facility]EMAT[facility] Segs 74.0 % 45.0 - 11/17 The 75.0 [facility] CHEM PANEL eGFR 54 11/13 3Result Comment: The eGFR is calculated using the CKD-EPI formula. In most young, healthy individuals the eGFR will be >90 mL/ min/1.73m2. The eGFR declines with age. An eGFR of 60-89 may be normal in The mL/min/1.7 /2013 some populations, particularly the elderly, for whom the CKD-EPI formula has not been extensively validated. Use of the eGFR is not recommended in the following populations: [facility] [place] 3m2 Individuals with unstable creatinine concentrations, including patients and those with serious co-morbid conditions. Patients with extremes in muscle mass or diet. The data above are obtained from the National Kidney Disease Education Program (NKDEP) which additionally recommends that when the eGFR is used in patients with extremes of body mass index for purposes of drug dosing, the eGFR should be multiplied by the estimated BMI. CHEM PANEL Creatinine 1.5 mg/dL 0.5 - 1.4 11/13 The [facility] CHEM PANEL BUN 11 mg/dL 7 - 22 11/13 [facility] ELECTROLYT Potassium 4.5 meq/L 3.5 - 5.1 11/13 The ES Lvl [facility]EMAT[facility] MCH 32.7 pg 27.0 - 11/13 The 31.0 [facility]EMAT[facility] MCHC 33.6 g/dL 32.0 - 11/13 The 36.0 [facility]EMAT[facility] Platelet 186 K/CMM 133 - 450 11/13 The [facility] HEMATOLOGY RDW 14.0 % 11.5 - 11/13 [facility] The 14.5 [facility]EMAT[facility] MPV 7.4 fL 7.4 - 10.4 11/13 The [facility]EMAT[facility] Hgb 12.2 g/dL 14.0 - 11/13 The 18.0 [facility]EMAT[facility] RBC 3.73 M/CMM 4.70 - 11/13 [facility] The 6.10 [facility]EMAT[facility] MCV 97.6 fL 80.0 - 11/13 The 94.0 [facility]EMAT[facility] Hct 36.4 % 42.0 - 11/13 [facility] The 54.0 [facility] HEMAT[facility] WBC 9.7 K/CMM 3.7 - 10.4 11/13 The [facility] HEMAT[facility]Y Basophils # 0.1 K/CMM 0.0 - 0.2 11/13 The [facility]EMAT[facility] Lymphocytes 2.0 K/CMM 1.0 - 5.5 11/13 [facility] The [facility] HEMATOLOGY Monocytes # 0.7 K/CMM 0.0 - 0.8 11/13 [facility] The [facility]EMAT[facility] Eosinophils 0.4 K/CMM 0.0 - 0.5 11/13 [facility] The [facility]EMAT[facility] Basophils 0.6 % 0.0 - 1.0 11/13 The [facility] HEMATOLOGY Segs-Bands # 6.6 K/CMM 1.5 - 8.1 11/13 [facility]EMAT[facility] Lymphocytes 20.5 % 20.0 - 11/13 [facility] The 40.0 [facility] HEMATOLOGY Monocytes 7.3 % 2.0 - 12.0 11/13 [facility] HEMATOLOGY Eosinophils 3.7 % 0.0 - 4.0 11/13 [facility] HEMATOLOG[facility] Segs 67.9 % 45.0 - 11/13 The 75.0 [facility] Vital Signs Vital Sign Value Date Comments Source Systolic (mm Hg) 84 04/05/2016 [facility] [place] Diastolic (mm Hg) 47 04/05/2016 [place] Respitory Rate 18 04/05/2016 [place] Heart Rate 76 04/05/2016 [place] Systolic (mm Hg) 80 04/05/2016 [place] Diastolic (mm Hg) 49 04/05/2016 [place] Respitory Rate 18 04/05/2016 [place] Heart Rate 73 04/05/2016 [place] Respitory Rate 18 04/05/2016 [place] Heart Rate 72 04/05/2016 [place] Systolic (mm Hg) 79 04/05/2016 [place] Diastolic (mm Hg) 42 04/05/2016 [place] Temperature Oral (F) 97.7 F 04/05/2016 [place] Temperature Oral (F) 97.7 F 04/05/2016 [place] Temperature Oral (F) 98.2 F 04/05/2016 [place] Weight 98.6 04/05/2016 [place] BMI Calculated 28.81 04/05/2016 [place] Height 185 cm 04/05/2016 [place] Respitory Rate 18 03/14/2016 [place] Systolic (mm Hg) 119 03/14/2016 [place] Diastolic (mm Hg) 63 03/14/2016 [place] Systolic (mm Hg) 124 03/14/2016 [place] Diastolic (mm Hg) 58 03/14/2016 [place] Respitory Rate 16 03/14/2016 [place] Temperature Oral (F) 98.8 F 03/14/2016 [place] Respitory Rate 18 03/14/2016 [place] Systolic (mm Hg) 129 03/14/2016 [facility] [place] Diastolic (mm Hg) 62 03/14/2016 [place] Temperature Oral (F) 98.7 F 03/14/2016 [facility] [place] Heart Rate 95 03/14/2016 [facility] [place] BMI Calculated 28.69 03/13/2016 [facility] [place] Weight 98.636 03/13/2016 [place] Temperature Oral (F) 98.6 F 03/13/2016 [facility] [place] Height 185.42 cm 03/13/2016 [facility] [place] Heart Rate 105 03/13/2016 [facility] [place] Heart Rate 111 02/18/2016 [place] Temperature Oral (F) 98.8 F 02/18/2016 [facility] [place] Respitory Rate 18 02/18/2016 [facility] [place] Systolic (mm Hg) 110 02/18/2016 [facility] [place] Diastolic (mm Hg) 56 02/18/2016 [place] Temperature Oral (F) 98.3 F 02/18/2016 [place] Heart Rate 97 02/18/2016 [facility] [place] Systolic (mm Hg) 94 02/18/2016 [facility] [place] Diastolic (mm Hg) 56 02/18/2016 [place] Respitory Rate 18 02/18/2016 [place] Temperature Oral (F) 98.2 F 02/18/2016 [place] Heart Rate 86 02/18/2016 [facility] [place] Systolic (mm Hg) 112 02/18/2016 [facility] [place] Diastolic (mm Hg) 54 02/18/2016 [place] Respitory Rate 18 02/18/2016 [place] Weight 96.023 02/08/2016 [place] BMI Calculated 28.69 02/08/2016 [place] Weight 98.636 02/08/2016 [place] Height 185.42 cm 02/08/2016 [facility] [place] Weight 97.273 02/01/2016 [facility] [place] BMI Calculated 28.29 02/01/2016 [facility] [place] Height 185.42 cm 02/01/2016 [facility] [place] Height 185.42 cm 01/31/2016 [facility] [place] BMI Calculated 27.63 01/31/2016 [facility] [place] Respitory Rate 16 02/16/2015 [place] Temperature Oral (F) 98.0 F 02/16/2015 [place] Respitory Rate 18 02/16/2015 [place] Heart Rate 77 02/16/2015 [place] Systolic (mm Hg) 175 02/16/2015 [facility] [place] Diastolic (mm Hg) 94 02/16/2015 [place] Temperature Oral (F) 98.2 F 02/16/2015 [place] Heart Rate 74 02/16/2015 [facility] [place] Systolic (mm Hg) 164 02/16/2015 [facility] [place] Diastolic (mm Hg) 89 02/16/2015 [place] Respitory Rate 18 02/16/2015 [place] Temperature Oral (F) 97.5 F 02/16/2015 [facility] [place] Systolic (mm Hg) 145 02/16/2015 [facility] [place] Diastolic (mm Hg) 83 02/16/2015 [place] Heart Rate 72 02/16/2015 [place] Height 185.42 cm 02/16/2015 [place] BMI Calculated 28.58 02/16/2015 [place] Weight 98.267 02/16/2015 [place] Weight 13.636 02/15/2015 [place] BMI Calculated 3.97 02/15/2015 [place] Height 185.42 cm 02/15/2015 [place] Temperature Oral (F) 98.2 F 02/09/2015 [place] Heart Rate 88 02/09/2015 [place] Respitory Rate 18 02/09/2015 [place] Systolic (mm Hg) 173 02/09/2015 [place] Diastolic (mm Hg) 82 02/09/2015 [place] BMI Calculated 31.47 02/09/2015 [place] Weight 108.182 02/09/2015 [place] Height 185.42 cm 02/09/2015 [place] Systolic (mm Hg) 189 02/09/2015 [place] Diastolic (mm Hg) 97 02/09/2015 [place] Heart Rate 77 02/09/2015 [place] Respitory Rate 16 02/09/2015 [facility] [place] Systolic (mm Hg) 172 01/23/2015 [facility] [place] Diastolic (mm Hg) 79 01/23/2015 [place] Systolic (mm Hg) 174 01/23/2015 [place] Diastolic (mm Hg) 92 01/23/2015 [place] Systolic (mm Hg) 184 01/23/[address] [facility] Diastolic (mm Hg) 86 01/23/2015 [place] Respitory Rate 18 01/23/2015 [place] Weight 104.545 01/23/2015 [place] Height 185.42 cm 01/23/2015 [place] BMI Calculated 30.41 01/23/2015 [place] Respitory Rate 18 01/23/[address] [facility] Heart Rate 92 01/23/[address] [facility] Temperature Oral (F) 98.5 F 01/23/[address] [facility] Encounters Location Location Encounter Encounter Reason Attending ADM DC Status Source Details Type Number For Provider Date Date Visit [facility] OP Recurring [id number] Nabeel 10/31 11/30 [facility]2013 [facility] EC Emergency [id number] Edozie 01/23 01/23 [facility] Lisandra /2014 [facility] EC Emergency [id number] [place] 02/09 02/09 [facility] OBS [id number] Juan 02/15 02/16 [facility] /2014 [place] [facility] Patient [facility] Inpatient [id number] Abb 01/30 02/17 [facility] Kari /2015 [facility] Emergency [id number] Blanche 03/13 03/14 [facility] Diaz /2015 [facility] Outpatient [id number] Abb 04/05 04/06 [facility] /2015 [facility] Procedures Procedure Code Date Perfomer Comments Source Amputation of toe [id number] [place] Amputation of [id number] toes The toe<sup>1</sup> [facility] Blood transfusion [id number] [facility]
--- OUTSIDE RECORDS SUMMARY | 2018-02-18 12:20 | XMS REPORT ---
:1965 [facility] Address [address] [place] [address] Dr. Monsivais [address] [place] [address] Care Team Providers Name Role Phone VICTOR [...] Value Reference Range Comments CULTURE (BEAKER) (test okma=9559) No growth in 5 days STOOL CULTURE + SHIGA [id number] 09:59:00 Test Item Value Reference Range Comments CULTURE (BEAKER) (test No Salmonella, Shigella or qlij=7957) Campylobacter isolated STOOL PATH [id number] 09:01:00 Test Item Value Reference Range Comments PATHOGEN EXAM CHARGED (BEAKER) (test enyl=2689) Done BASIC METABOLIC [id number] 06:59:00 Test Item Value Reference Range Comments SODIUM (BEAKER) (test 137 meq/L 136-145 xlyv=604) POTASSIUM (BEAKER) (test 3.6 meq/L 3.5-5.1 nrig=603) CHLORIDE (BEAKER) (test 110 meq/L 98-107 jdqp=862) CO2 (BEAKER) (test 16 meq/L 22-29 nrww=712) BLOOD UREA NITROGEN 18 mg/dL 7-21 (BEAKER) (test lqre=391) CREATININE (BEAKER) (test 2.02 mg/dL 0.57-1.25 ysyi=441) GLUCOSE RANDOM (BEAKER) 91 mg/dL 70-105 (test hylk=417) CALCIUM (BEAKER) (test 9.3 mg/dL 8.4-10.2 qwfu=591) EGFR (BEAKER) (test 35 mL/min/1.73 sq m ESTIMATED GFR IS NOT hidg=6647) ACCURATE CREATININE CLEARANCE IN PREDICTING GLOMERULAR FILTRATION RATE. ESTIMATED GFR IS NOT APPLICABLE FOR DIALYSIS PATIENTS. SHIGA TOXIN [id number] 15:48:00 Test Item Value Reference Range Comments SHIGA TOXIN 1 (BEAKER) (test zvmr=5261) Not detected Not detected SHIGA TOXIN 2 (BEAKER) (test vpuh=6750) Not detected Not detected CLOSTRIDIUM DIFFICILE TOXIN [id number] 15:13:00 Test Item Value Reference Range Comments CLOSTRIDIUM DIFFICILE TOXIN, PCR (BEAKER) (test Not Detected Not Detected sqdl=7326) This qualitative real-time polymerase chain reaction assay [...] a positive result is not recommended.BLOOD GAS, [id number] 11:03:00 Test Item Value Reference Range Comments PH ARTERIAL (BEAKER) (test cmpp=978) 7.38 7.35-7.45 PCO2 ARTERIAL (BEAKER) (test hrrt=149) 28 mmHg 35-45 PO2 ARTERIAL (BEAKER) (test fhyw=075) 95 mmHg 80-90 O2 SATURATION ARTERIAL (BEAKER) (test jlfp=023) 97.4 % 96.0-97.0 HCO3 ARTERIAL (BEAKER) (test xrnn=696) 16 mmol/L 21-29 BASE EXCESS ARTERIAL (BEAKER) (test mika=569) -7.2 mmol/L -2.0-3.0 PATIENT TEMPERATURE (BEAKER) (test bptx=8813) 36.5 C FIO2 (BEAKER) (test eitu=2359) 21.0 % BASIC METABOLIC [id number] 05:14:00 Test Item Value Reference Range Comments SODIUM (BEAKER) (test 136 meq/L 136-145 hfmp=945) POTASSIUM (BEAKER) (test 3.9 meq/L 3.5-5.1 wzru=328) CHLORIDE (BEAKER) (test 111 meq/L 98-107 hiot=358) CO2 (BEAKER) (test 13 meq/L 22-29 kpbk=211) BLOOD UREA NITROGEN 20 mg/dL 7-21 (BEAKER) (test wevr=480) CREATININE (BEAKER) (test 2.70 mg/dL 0.57-1.25 opoe=447) GLUCOSE RANDOM (BEAKER) 77 mg/dL 70-105 (test trwb=720) CALCIUM (BEAKER) (test 9.3 mg/dL 8.4-10.2 yyhu=591) EGFR (BEAKER) (test 25 mL/min/1.73 sq m ESTIMATED GFR IS NOT qmjp=7642) ACCURATE CREATININE CLEARANCE IN PREDICTING GLOMERULAR FILTRATION RATE. ESTIMATED GFR IS NOT APPLICABLE FOR DIALYSIS PATIENTS. PTH, [id number] 05:03:00 Test Item Value Reference Range Comments PARATHYROID HORMONE INTACT (BEAKER) (test 41.8 pg/mL 8.5-72.5 wrbr=011) BASIC METABOLIC [id number] 07:10:00 Test Item Value Reference Range Comments SODIUM (BEAKER) (test 136 meq/L 136-145 plwt=967) POTASSIUM (BEAKER) (test 3.4 meq/L 3.5-5.1 oblr=320) CHLORIDE (BEAKER) (test 109 meq/L 98-107 taaa=074) CO2 (BEAKER) (test 15 meq/L 22-29 emos=280) BLOOD UREA NITROGEN 23 mg/dL 7-21 (BEAKER) (test liox=912) CREATININE (BEAKER) (test 3.91 mg/dL 0.57-1.25 wggn=396) GLUCOSE RANDOM (BEAKER) 79 mg/dL 70-105 (test xviq=851) CALCIUM (BEAKER) (test 8.9 mg/dL 8.4-10.2 sgmp=273) EGFR (BEAKER) (test 16 mL/min/1.73 sq m ESTIMATED GFR IS NOT qooo=7246) ACCURATE CREATININE CLEARANCE IN PREDICTING GLOMERULAR FILTRATION RATE. ESTIMATED GFR IS NOT APPLICABLE FOR DIALYSIS PATIENTS. SODIUM, RANDOM [id number] 06:58:00 Test Item Value Reference Range Comments SODIUM URINE (BEAKER) (test qvrs=619) 65 meq/L Reference Range: No NormalsPROTHROMBIN [id number] 06:47:00 Test Item Value Reference Range Comments PROTIME (BEAKER) (test kmdm=515) 14.5 seconds 11.7-14.7 INR (BEAKER) (test ltzf=222) 1.1 <=5.9 RECOMMENDED COUMADIN/WARFARIN INR THERAPY RANGESSTANDARD DOSE: 2.0 - 3.0 Includes: PROPHYLAXIS forvenous thrombosis, systemic embolization; TREATMENT for venous thrombosis and/or pulmonary embolus.HIGH RISK: Target INR is 2.5-3.5 for patients with mechanical heart valves.RAPID DRUG SCREEN, [id number] 15: 43:00 Test Item Value Reference Range Comments BARBITURATE URINE (BEAKER) (test jobj=901) Negative Negative BENZODIAZEPINE SCREEN URINE (BEAKER) (test Positive Negative aoeh=593) COCAINE (METAB.) SCREEN (BEAKER) (test sjpx=2568) Negative Negative METHADONE SCREEN (BEAKER) (test vups=4930) Negative Negative OPIATE SCREEN URINE (BEAKER) (test nfsc=627) Negative Negative CANNABINOID SCREEN URINE (BEAKER) (test tbre=767) Negative Negative AMPH/METHAMPH SCREEN (BEAKER) (test kdgb=0271) Negative Negative PHENCYCLIDINE SCREEN URINE (BEAKER) (test asxx=427) Negative Negative OXYCODONE SCREEN URINE (BEAKER) (test twjq=1031) Negative Negative DRUG CUTOFF CONC.Cocaine 300 ng/mL Cannabinoid 50 ng/mL Benzodiazepine 200 ng/mLBarbiturate 200 ng/ mLPhencyclidine 25 ng/mLOpiate 300 ng/mLMethadone 300 ng/mLAmphetamine/ 1000 ng/mL MethamphetamineOxycodone 300 ng/mLThis assay provides an unconfirmed qualitative test result for the clinical management of patients in emergency situations. Chain of custody not maintained. Some mhif-afc-edbyqui medications, as well as adulterants, may cause inaccurate results. Clinical correlation should be applied. A more comprehensive drug screen or confirmation of a detected drug may be performed upon request.URINE [id number] 14:33:00 Test Item Value Reference Range Comments CULTURE (BEAKER) (test hvex=4444) No growth BASIC METABOLIC [id number] 08:09:00 Test Item Value Reference Range Comments SODIUM (BEAKER) (test 136 meq/L 136-145 hmxk=455) POTASSIUM (BEAKER) (test 3.5 meq/L 3.5-5.1 Specimen slightly rcem=754) hemolyzed CHLORIDE (BEAKER) (test 107 meq/L 98-107 xwnh=578) CO2 (BEAKER) (test 15 meq/L 22-29 reyd=662) BLOOD UREA NITROGEN 25 mg/dL 7-21 (BEAKER) (test nell=990) CREATININE (BEAKER) (test 4.75 mg/dL 0.57-1.25 Specimen slightly sxlg=065) hemolyzed GLUCOSE RANDOM (BEAKER) 74 mg/dL 70-105 (test nwit=180) CALCIUM (BEAKER) (test 8.5 mg/dL 8.4-10.2 ajii=424) EGFR (BEAKER) (test 13 mL/min/1.73 sq m ESTIMATED GFR IS NOT egkh=4686) ACCURATE CREATININE CLEARANCE IN PREDICTING GLOMERULAR FILTRATION RATE. ESTIMATED GFR IS NOT APPLICABLE FOR DIALYSIS PATIENTS. CBC W/PLT COUNT & AUTO [id number] 06:38:00 Test Item Value Reference Range Comments WHITE BLOOD CELL COUNT (BEAKER) (test bjdv=631) 9.9 K/ L 3.5-10.5 RED BLOOD CELL COUNT (BEAKER) (test ipam=338) 4.01 M/ L 4.63-6.08 HEMOGLOBIN (BEAKER) (test dxbm=653) 13.2 GM/DL 13.7-17.5 HEMATOCRIT (BEAKER) (test vccc=262) 38.1 % 40.1-51.0 MEAN CORPUSCULAR VOLUME (BEAKER) (test mcny=915) 95.0 fL 79.0-92.2 MEAN CORPUSCULAR HEMOGLOBIN (BEAKER) (test 32.9 pg 25.7-32.2 blgt=665) MEAN CORPUSCULAR HEMOGLOBIN CONC (BEAKER) (test 34.6 GM/DL 32.3-36.5 xtsq=393) RED CELL DISTRIBUTION WIDTH (BEAKER) (test 13.1 % 11.6-14.4 efmn=824) PLATELET COUNT (BEAKER) (test acrc=690) 121 K/CU MM 150-450 MEAN PLATELET VOLUME (BEAKER) (test oiqc=444) 10.1 fL 9.4-12.4 NUCLEATED RED BLOOD CELLS (BEAKER) (test 0 /100 WBC 0-0 zvwl=405) NEUTROPHILS RELATIVE PERCENT (BEAKER) (test 73 % yzuj=141) LYMPHOCYTES RELATIVE PERCENT (BEAKER) (test 17 % jjyu=051) MONOCYTES RELATIVE PERCENT (BEAKER) (test 8 % mcyc=172) EOSINOPHILS RELATIVE PERCENT (BEAKER) (test 2 % mopv=778) BASOPHILS RELATIVE PERCENT (BEAKER) (test 0 % bxqt=680) NEUTROPHILS ABSOLUTE COUNT (BEAKER) (test 7.25 K/ L 1.78-5.38 tjey=083) LYMPHOCYTES ABSOLUTE COUNT (BEAKER) (test 1.66 K/ L 1.32-3.57 xhwr=798) MONOCYTES ABSOLUTE COUNT (BEAKER) (test 0.76 K/ L 0.30-0.82 acnu=018) EOSINOPHILS ABSOLUTE COUNT (BEAKER) (test 0.19 K/ L 0.04-0.54 avbt=351) BASOPHILS ABSOLUTE COUNT (BEAKER) (test 0.03 K/ L 0.01-0.08 lrpa=144) IMMATURE GRANULOCYTES-RELATIVE PERCENT (BEAKER) 0 % 0-1 (test wdzb=0949) U/S, RENAL, [id number] 22:34:00Reason for exam:->acute kidney injuryFINAL REPORT Renal [...] with no evidence of hydronephrosis. Signed: Zion Jackeport Verified Date/Time: 2016 22:34:25 Reading Location:[facility] C0[facility] Consult Reading Room MR, BRAIN, WITHOUT [id number] 19:18:00Reason for exam:->Stroke evaluationFINAL REPORT MRI Brain [...] MDReport Verified Date/Time: 04/17/2017 19:18:34 Reading Location: [facility] [address] Radiology Reading Room EEG MONITORING WITH VIDEO RECORDING EACH 24 [id number] 18:01:00DATE OF TEST: 04/17/2017 DATE OF REPORT 04/17/2017 ACC: [id number] EE Start time: 16:42 Stop time: 18: 44 ICD-10: R56.9 CPT Code: 89955 HISTORY: 51 y/o woman with history of [...] Shahnaz Davis MD Neurophysiology Attending URINALYSIS W/ [id number] 11:57:00 Test Item Value Reference Range Comments COLOR (BEAKER) (test ikoh=010) Light Yellow CLARITY (BEAKER) (test ngvn=535) Clear SPECIFIC GRAVITY UA (BEAKER) (test mwwr=296) 1.006 1.001-1.035 PH UA (BEAKER) (test ejyz=935) 6.0 5.0-8.0 PROTEIN UA (BEAKER) (test ipxj=253) 30 mg/dL Negative GLUCOSE UA (BEAKER) (test klig=363) Negative Negative KETONES UA (BEAKER) (test fmhd=589) Negative Negative BILIRUBIN UA (BEAKER) (test xlvc=590) Negative Negative BLOOD UA (BEAKER) (test pjxt=945) Small Negative NITRITE UA (BEAKER) (test mlpf=666) Negative Negative LEUKOCYTE ESTERASE UA (BEAKER) (test upzx=278) Large Negative UROBILINOGEN UA (BEAKER) (test ixxw=923) 0.2 mg/dL 0.2-1.0 RBC UA (BEAKER) (test ejch=863) 7 /HPF WBC UA (BEAKER) (test wvzh=233) 21 /HPF BACTERIA (BEAKER) (test lwqd=352) Occasional SQUAMOUS EPITHELIAL (BEAKER) (test rgba=876) < /HPF URIC ACID CRYSTALS (BEAKER) (test pnqg=2248) Rare SOURCE(BEAKER) (test phti=0107) Urine, Cooper EOSINOPHIL SMEAR, [id number] 11:56:00 Test Item Value Reference Range Comments EOSINOPHIL SMEAR, URINE (BEAKER) (test No EOS seen No EOS seen bbxl=4572) CREATININE, RANDOM [id number] 11:24:00 Test Item Value Reference Range Comments CREATININE URINE (BEAKER) (test lxcb=988) 69.7 mg/dL Reference Range: No NormalsSODIUM, RANDOM [id number] 11:24:00 Test Item Value Reference Range Comments SODIUM URINE (BEAKER) (test hzur=465) 58 meq/L Reference Range: No NormalsUREA NITROGEN, RANDOM [id number] 11:24:00 Test Item Value Reference Range Comments UREA NITROGEN URINE (BEAKER) (test pmdz=403) 172 mg/dL Reference Range: No NormalsCREATINE KINASE (CK)2017-04-17 11:06:00 Test Item Value Reference Range Comments CREATINE KINASE TOTAL (BEAKER) (test mlfz=245) 136 U/L 29-200 BASIC METABOLIC [id number] 04:53:00 Test Item Value Reference Range Comments SODIUM (BEAKER) (test 137 meq/L 136-145 kkzf=448) POTASSIUM (BEAKER) (test 3.4 meq/L 3.5-5.1 zcbe=734) CHLORIDE (BEAKER) (test 105 meq/L 98-107 yasp=476) CO2 (BEAKER) (test 21 meq/L 22-29 erwn=675) BLOOD UREA NITROGEN 19 mg/dL 7-21 (BEAKER) (test mtyc=747) CREATININE (BEAKER) (test 3.75 mg/dL 0.57-1.25 hjwn=110) GLUCOSE RANDOM (BEAKER) 100 mg/dL 70-105 (test dgfh=752) CALCIUM (BEAKER) (test 8.6 mg/dL 8.4-10.2 ixiy=496) EGFR (BEAKER) (test 17 mL/min/1.73 sq m ESTIMATED GFR IS NOT vdnr=6548) ACCURATE CREATININE CLEARANCE IN PREDICTING GLOMERULAR FILTRATION RATE. ESTIMATED GFR IS NOT APPLICABLE FOR DIALYSIS PATIENTS. CBC W/PLT COUNT & AUTO [id number] 04:19:00 Test Item Value Reference Range Comments WHITE BLOOD CELL COUNT (BEAKER) (test hdvp=476) 12.0 K/ L 3.5-10.5 RED BLOOD CELL COUNT (BEAKER) (test zpgb=907) 4.19 M/ L 4.63-6.08 HEMOGLOBIN (BEAKER) (test eenh=512) 13.8 GM/DL 13.7-17.5 HEMATOCRIT (BEAKER) (test asai=076) 40.4 % 40.1-51.0 MEAN CORPUSCULAR VOLUME (BEAKER) (test bjfh=145) 96.4 fL 79.0-92.2 MEAN CORPUSCULAR HEMOGLOBIN (BEAKER) (test 32.9 pg 25.7-32.2 iftf=743) MEAN CORPUSCULAR HEMOGLOBIN CONC (BEAKER) (test 34.2 GM/DL 32.3-36.5 spwe=694) RED CELL DISTRIBUTION WIDTH (BEAKER) (test 13.4 % 11.6-14.4 ktbd=493) PLATELET COUNT (BEAKER) (test pmhe=446) 118 K/CU MM 150-450 MEAN PLATELET VOLUME (BEAKER) (test gwfe=187) 9.5 fL 9.4-12.4 NUCLEATED RED BLOOD CELLS (BEAKER) (test 0 /100 WBC 0-0 wtcr=288) NEUTROPHILS RELATIVE PERCENT (BEAKER) (test 77 % zakc=074) LYMPHOCYTES RELATIVE PERCENT (BEAKER) (test 15 % mjss=849) MONOCYTES RELATIVE PERCENT (BEAKER) (test 7 % fbbe=035) EOSINOPHILS RELATIVE PERCENT (BEAKER) (test 1 % dqio=915) BASOPHILS RELATIVE PERCENT (BEAKER) (test 0 % qmah=770) NEUTROPHILS ABSOLUTE COUNT (BEAKER) (test 9.20 K/ L 1.78-5.38 hvay=626) LYMPHOCYTES ABSOLUTE COUNT (BEAKER) (test 1.78 K/ L 1.32-3.57 nycu=792) MONOCYTES ABSOLUTE COUNT (BEAKER) (test 0.82 K/ L 0.30-0.82 tygz=132) EOSINOPHILS ABSOLUTE COUNT (BEAKER) (test 0.12 K/ L 0.04-0.54 dkeo=674) BASOPHILS ABSOLUTE COUNT (BEAKER) (test 0.04 K/ L 0.01-0.08 egxt=062) IMMATURE GRANULOCYTES-RELATIVE PERCENT (BEAKER) 0 % 0-1 (test fmgh=3302) EEG MONITORING WITH VIDEO RECORDING EACH 24 [id number] 17:57:00DATE OF TEST : 04/16/2017DATE OF REPORT 04/16/2017 ACC: [id number]: Start time: 08: 42 Stop time: 16:42ICD-10: R56.9CPT Code: 29014SIYWNYK: 51 y/o woman with history of epilepsy [...] report.Phoebe Villar MDEpilepsy Attending EEG AWAKE/ASLEEP AND [id number] 13:27:00Reason for exam:->status epilepticusDATE OF TEST: DATE OF REPORT 04/16/2017 ACC: [id number] EEart time: 08:21 Stop time: 08:42ICD-10: R56.9CPT Code: 81923ZXOCAKQ: 51 y/o woman with history of epilepsy [...] this report.Phoebe Villar MDEpilepsy Attending HEPATIC FUNCTION [id number] 12:59:00 Test Item Value Reference Range Comments TOTAL PROTEIN (BEAKER) (test 8.0 gm/dL 6.0-8.3 Specimen moderately hemolyzed kcrp=194) ALBUMIN (BEAKER) (test 3.8 g/dL 3.5-5.0 Specimen moderately hemolyzed dlue=3895) BILIRUBIN TOTAL (BEAKER) (test 0.3 mg/dL 0.2-1.2 Specimen moderately hemolyzed rfdx=373) BILIRUBIN DIRECT (BEAKER) 0.1 mg/dL 0.1-0.5 Specimen moderately hemolyzed (test mvop=662) ALKALINE PHOSPHATASE (BEAKER) 79 U/L 40-150 (test lhsv=049) AST (SGOT) (BEAKER) (test 34 U/L 5-34 Specimen moderately hemolyzed luyk=588) ALT (SGPT) (BEAKER) (test 30 U/L 6-55 Specimen moderately bits=394) hemolyzed RAD, CHEST, 1 VIEW, NON [id number] 09:16:00Reason for exam:-> intubatedShould this be performed [...] Hernandez Verified Date/Time: 04/16/2017 09:16:32 Reading Location: [facility] [address] Radiology Reading Room VITAMIN [id number] 07:31:00 Test Item Value Reference Range Comments VITAMIN B12 (BEAKER) (test zaoc=232) 450 pg/mL 213-816 FOLATE, [id number] 07:31:00 Test Item Value Reference Range Comments FOLATE (BEAKER) (test euik=161) 8.0 ng/mL >=7.0 URINALYSIS W/ [id number] 07:09:00 Test Item Value Reference Range Comments COLOR (BEAKER) (test slik=482) Light Yellow CLARITY (BEAKER) (test wgws=419) Hazy SPECIFIC GRAVITY UA (BEAKER) (test yjzd=041) 1.008 1.001-1.035 PH UA (BEAKER) (test mwbl=181) 6.0 5.0-8.0 PROTEIN UA (BEAKER) (test gqpi=279) 20 mg/dL Negative GLUCOSE UA (BEAKER) (test clyz=783) 200 mg/dL Negative KETONES UA (BEAKER) (test qqkc=544) Negative Negative BILIRUBIN UA (BEAKER) (test khhv=248) Negative Negative BLOOD UA (BEAKER) (test aknv=700) Negative Negative NITRITE UA (BEAKER) (test ukfu=026) Negative Negative LEUKOCYTE ESTERASE UA (BEAKER) (test iiuo=308) Negative Negative UROBILINOGEN UA (BEAKER) (test tuvt=845) 0.2 mg/dL 0.2-1.0 RBC UA (BEAKER) (test audn=817) < /HPF WBC UA (BEAKER) (test hhvp=587) 1 /HPF BACTERIA (BEAKER) (test zowb=250) Rare SQUAMOUS EPITHELIAL (BEAKER) (test luak=670) < /HPF HYALINE CASTS (BEAKER) (test khih=930) 8 /LPF SOURCE(BEAKER) (test ejdp=3195) [id number] 05:59:00 Test Item Value Reference Range Comments MAGNESIUM (BEAKER) (test 3.0 mg/dL 1.6-2.6 Specimen moderately hemolyzed xawo=097) [id number] 05:59:00 Test Item Value Reference Range Comments PHOSPHORUS (BEAKER) (test 3.0 mg/dL 2.3-4.7 Specimen moderately hemolyzed ojbl=115) BASIC METABOLIC [id number] 05:59:00 Test Item Value Reference Range Comments SODIUM (BEAKER) (test 137 meq/L 136-145 efic=017) POTASSIUM (BEAKER) (test 3.8 meq/L 3.5-5.1 Specimen moderately akib=290) hemolyzed CHLORIDE (BEAKER) (test 99 meq/L 98-107 huby=268) CO2 (BEAKER) (test 23 meq/L 22-29 dgji=193) BLOOD UREA NITROGEN 14 mg/dL 7-21 (BEAKER) (test yzro=803) CREATININE (BEAKER) (test 1.48 mg/dL 0.57-1.25 Specimen moderately jiau=454) hemolyzed GLUCOSE RANDOM (BEAKER) 386 mg/dL 70-105 (test ctii=099) CALCIUM (BEAKER) (test 8.0 mg/dL 8.4-10.2 pcmk=113) EGFR (BEAKER) (test 50 mL/min/1.73 sq m ESTIMATED GFR IS NOT bvzg=1049) ACCURATE CREATININE CLEARANCE IN PREDICTING GLOMERULAR FILTRATION RATE. ESTIMATED GFR IS NOT APPLICABLE FOR DIALYSIS PATIENTS. PROTHROMBIN [id number] 05:33:00 Test Item Value Reference Range Comments PROTIME (BEAKER) (test hzdu=439) 15.7 seconds 11.7-14.7 INR (BEAKER) (test egqj=358) 1.3 <=5.9 RECOMMENDED COUMADIN/WARFARIN INR THERAPY RANGESSTANDARD DOSE: 2.0 - 3.0 Includes: PROPHYLAXIS forvenous thrombosis, systemic embolization; TREATMENT for venous thrombosis and/or pulmonary embolus.HIGH RISK: Target INR is 2.5-3.5 for patients with mechanical heart valves.BLOOD GAS, [id number] 05:31:00 Test Item Value Reference Range Comments PH ARTERIAL (BEAKER) (test mamv=140) 7.34 7.35-7.45 PCO2 ARTERIAL (BEAKER) (test lgkc=181) 43 mmHg 35-45 PO2 ARTERIAL (BEAKER) (test qsbr=305) 123 mmHg 80-90 O2 SATURATION ARTERIAL (BEAKER) (test huwq=511) 98.2 % 96.0-97.0 HCO3 ARTERIAL (BEAKER) (test isgh=082) 22 mmol/L 21-29 BASE EXCESS ARTERIAL (BEAKER) (test xgbf=293) -3.2 mmol/L -2.0-3.0 PATIENT TEMPERATURE (BEAKER) (test ljbi=9990) 37.2 C FIO2 (BEAKER) (test ewfq=1217) 60.0 % CBC W/PLT COUNT & AUTO [id number] 05:08:00 Test Item Value Reference Range Comments WHITE BLOOD CELL COUNT (BEAKER) (test qqxp=771) 16.2 K/ L 3.5-10.5 RED BLOOD CELL COUNT (BEAKER) (test zzym=200) 4.53 M/ L 4.63-6.08 HEMOGLOBIN (BEAKER) (test ejnk=556) 14.9 GM/DL 13.7-17.5 HEMATOCRIT (BEAKER) (test ctms=413) 43.7 % 40.1-51.0 MEAN CORPUSCULAR VOLUME (BEAKER) (test xpiy=823) 96.5 fL 79.0-92.2 MEAN CORPUSCULAR HEMOGLOBIN (BEAKER) (test 32.9 pg 25.7-32.2 vkza=262) MEAN CORPUSCULAR HEMOGLOBIN CONC (BEAKER) (test 34.1 GM/DL 32.3-36.5 sowt=679) RED CELL DISTRIBUTION WIDTH (BEAKER) (test 13.2 % 11.6-14.4 hegu=158) PLATELET COUNT (BEAKER) (test tyvr=280) 127 K/CU MM 150-450 MEAN PLATELET VOLUME (BEAKER) (test etea=881) 10.0 fL 9.4-12.4 NUCLEATED RED BLOOD CELLS (BEAKER) (test 0 /100 WBC 0-0 fzku=631) NEUTROPHILS RELATIVE PERCENT (BEAKER) (test 84 % idla=287) LYMPHOCYTES RELATIVE PERCENT (BEAKER) (test 7 % djxj=079) MONOCYTES RELATIVE PERCENT (BEAKER) (test 9 % bfqk=340) EOSINOPHILS RELATIVE PERCENT (BEAKER) (test 0 % lntx=531) BASOPHILS RELATIVE PERCENT (BEAKER) (test 0 % kiea=740) NEUTROPHILS ABSOLUTE COUNT (BEAKER) (test 13.58 K/ L 1.78-5.38 maof=534) LYMPHOCYTES ABSOLUTE COUNT (BEAKER) (test 1.06 K/ L 1.32-3.57 hdvj=770) MONOCYTES ABSOLUTE COUNT (BEAKER) (test 1.38 K/ L 0.30-0.82 tmfz=316) EOSINOPHILS ABSOLUTE COUNT (BEAKER) (test 0.01 K/ L 0.04-0.54 nrzy=852) BASOPHILS ABSOLUTE COUNT (BEAKER) (test 0.02 K/ L 0.01-0.08 taua=531) IMMATURE GRANULOCYTES-RELATIVE PERCENT (BEAKER) 1 % 0-1 (test [id number])
--- NOTE | 2018-02-18 13:57 | CON ---
Date of Consultation: 02/17/2018 Reason: Infection, left foot. History Of Present Illness: The patient is a 52-year-old gentleman who [facility]. 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 This wound VAC was stopped in the last clinic visit ; however, he had a little bit of redness and he was prescribed antibiotics which he failed to pick u p. Sunday, I got a call from the visiting nurse, stating again she noticed some redness. I advised her that if he has not picked up his antibiotics to do so immediately, if not go to the emergency [facility] . He apparently did not last picker the antibiotics on Sunday night and yesterday I got a call early in the morning from the visiting nurse stating that he had increasing redness and swelling, so I said i mmediately take him to the ER where he had a workup initially done, normal procalcitonin, normal lact ate and he was okay until he went down to smoke and he came back and he was very combative and code jordin leiva was called and he was transferred to the ICU with restraints for his own protection. He has be en started on IV antibiotics. He denies any fever or chills. He is somewhat sedated at this time. Review of Systems: Otherwise unremarkable. Past Medical History: Significant for hypertension, CHF, COPD, coronary artery disease, history of o steo, multiple amputations of his lower extremity on the foot and toes. Allergies: NONE. Social History: He does have a history of tobacco use, alcohol use and IV drug use. He was counsele d by the hospitalist regarding these issues. Family History: Noncontributory. Physical Examination: Vital Signs: Currently are stable. He is afebrile. He is awake, alert, sedated from the medication given to him, his anxiety is down. Head and Neck: No masses. Chest: Clear. Heart: S1, S2. ABDOMEN: Soft. Extremity: Diminished dorsalis pedis and posterior tibial pulses. On the left foot on the medial as pect, there is approximately a 4 x 2 cm wound with good granulation tissue. At this time there is no surrounding erythema, warmth and edema. There is no purulent discharge. Neuro: Nonfocal. Laboratory Data: White count is normal. Chemistry: His procalcitonin less than 0.05, lactic acid i s 1.6. His foot x-ray does not show any evidence of osteo. Assessment: Wound to left foot with possible mild cellulitis. Recommendations: Continue IV antibiotics as ordered. When he is medically stabilized, he can be dis charged on Cipro and doxy as previously ordered. We will make sure the squadron worker can provide him with the antibiotics before he leaves the hospital so he has access to the medications, collagenase dressing and he can follow up with me [facility] the [facility] upon discharge. /MODL Voice ID: [id number] Report ID: [id number]
--- NOTE | 2018-02-18 14:13 | RAD REPORT ---
EXAM DESCRIPTION: CT - Head Brain Wo Cont - 02/18/2018 2:02 pm CLINICAL HISTORY: Alteration of awareness/confusion COMPARISON: February 2017 TECHNIQUE: Computed axial tomography of the head was obtained. IV contrast was not requested. All CT scans are performed using dose optimization technique as appropriate and may include automated exposure control or mA/KV adjustment according to patient size. FINDINGS: An intracranial bleed is not seen . The ventricles are normal in caliber. No extra-axial fluid collection is noted. Mild low-density areas within periventricular, deep and sub cortical white matter likely represent ischemic changes secondary to small vessel disease. Fluid within the sinuses/ mastoids is not seen. IMPRESSION: No acute intracranial abnormality is seen. If patient's symptoms persist MRI of the bra in would be recommended.
--- NOTE | 2018-02-18 14:22 | P.SSS ---
Patient History Date of Service: 02/18/18 Reason for admission: Worsening nonhealing wound History of Present Illness: Mr Leblanc is a 52-year-old male with history of hypertension, coronary artery disease, tobacco abuse, bilateral feet amputation, last time he had great toe amputation in 10/2017, the wound was not healing requiring significant wound care. He has had VAC in place until 3 days ago which was removed since the wound has improved. However, have nurse came to see the patient today and found worsening appearance of the wound, it has yellowish/greenish secretion, increasing pain and swelling. There is no history of fever or chills. ER workup shows normal WBC count, normal procalcitonin and lactate. Allergies No Known Allergies Allergy (Verified 11/12/17 20:22) Home Medications: Amlodipine Besylate 10 mg PO DAILY #30 tablet 11/15/17 Aspirin [Aspirin EC 81 MG] 81 mg PO DAILY #90 tablet. 11/15/17 Atorvastatin Calcium [Lipitor] 80 mg PO BEDTIME #30 tablet 11/15/17 Clopidogrel Bisulfate [Plavix*] 75 mg PO DAILY #30 tablet 11/15/17 Collagenase [Santyl Ointment*] 1 appl TOP DAILY #1 tube 11/15/17 Gabapentin [Neurontin*] 200 mg PO TID #180 cap 11/15/17 Lisinopril [Prinivil*] 10 mg PO DAILY #30 tab 11/15/17 Thiamine HCl [Vitamin B-1*] 100 mg PO DAILY #30 tablet 11/15/17 Acetic Acid 0.25% [Acetic Acid 0.25%*] 1 appl IR DAILY 02/17/18 Ibuprofen [Motrin*] 400 mg PO Q4HP PRN 02/17/18 Multivit,Ther Iron,Ca,FA & Min [Centrum Tablet*] 1 tab PO DAILY 02/17/18 Naproxen [Naprosyn] 500 mg PO DAILYPRN PRN 02/17/18 Ciprofloxacin HCl 500 mg PO DAILY #14 tablet 02/18/18 Doxycycline Hyclate 100 mg PO BID #28 tablet 02/18/18 - Past Medical/Surgical History Has patient received pneumonia vaccine in the past: No Diabetic: No -: HTN -: CHF, diastolic dysfunction -: COPD -: CAD -: . -: Right metatarsal amputation -: History of osteomyelitis -: IV drug use -: Alcohol abuse -: Tobacco abuse -: Rt great toe & 2nd toe amputated-Dec 2015 Psychosocial/ Personal History: Unable to be obtained - Social History Smoking Status: Current every day smoker Alcohol use: No CD- Drugs: No Caffeine use: Yes Place of Residence: Home Review of Systems 10-point ROS is otherwise unremarkable Physical Examination - Vital Signs Temperature: 97.6 F Blood Pressure: 150/74 Pulse: 67 Respirations: 27 Pulse Ox (%): 98 - Physical Exam General: Alert, In no apparent distress HEENT: Atraumatic, PERRLA, Mucous membr. moist/pink, EOMI, Sclerae nonicteric Neck: Supple, 2+ carotid pulse no bruit, No LAD, Without JVD or thyroid abnormality Respiratory: Clear to auscultation bilaterally, Normal air movement Cardiovascular: Regular rate/rhythm, Normal S1 S2 Gastrointestinal: Normal bowel sounds, No tenderness Musculoskeletal: No tenderness Integumentary: No rashes Neurological: Normal gait, Normal speech, Normal strength at 5/5 x4 extr, Normal tone, Normal affect Lymphatics: No axilla or inguinal lymphadenopathy - Studies Laboratory Data (last 24 hrs) 02/17/18 20:15: PT 12.7 H, INR 1.08, APTT 41.2 H 02/17/18 20:15: WBC 9.9, Hgb 13.6, Hct 39.2 L, Plt Count 205 02/17/18 20:15: Sodium 137, Potassium 3.9, BUN 10, Creatinine 1.10, Glucose 83, Total Bilirubin 0.3, AST 12 L, ALT 17, Alkaline Phosphatase 113 Microbiology Data (last 24 hrs): 02/17/18 20:17 Wound - Left Foot Gram Stain - Final - Diagnosis (Problem(s)) (1) Non-healing surgical wound Current Visit: No Status: Chronic Plan: Left toe without any cellulitis. Doing well. Qualifiers: Encounter type: sequela Qualified Code(s): T81.89XS - Other complications of procedures, not elsewhere classified, sequela (2) Encounter for tobacco use cessation counseling Current Visit: No Status: Acute (3) Anemia Onset Date: 01/07/16 Current Visit: No Status: Chronic Qualifiers: Anemia type: other cause (4) CAD (coronary artery disease) Onset Date: 03/15/17 Current Visit: No Status: Chronic Qualifiers: Coronary Disease-Associated Artery/Lesion type: unspecified vessel or lesion type [place] vs. transplanted heart: unspecified whether [place] or transplanted heart Associated angina: without angina Qualified Code(s): I25.10 - Atherosclerotic heart disease of [place] coronary artery without angina pectoris (5) COPD (chronic obstructive pulmonary disease) Onset Date: 03/15/17 Current Visit: No Status: Chronic Qualifiers: COPD type: chronic bronchitis Chronic bronchitis type: unspecified Qualified Code(s): J42 - Unspecified chronic bronchitis (6) Congestive heart failure Current Visit: No Status: Chronic (7) Hyperlipemia Current Visit: No Status: Chronic Qualifiers: Hyperlipidemia type: unspecified Qualified Code(s): E78.5 - Hyperlipidemia , unspecified (8) Hypertension Onset Date: 01/07/16 Current Visit: No Status: Chronic Qualifiers: Hypertension type: essential hypertension Qualified Code(s): I10 - Essential (primary) hypertension (9) Methamphetamine abuse Onset Date: 03/15/17 Current Visit: No Status: Chronic (10) PAD (peripheral artery disease) Current Visit: No Status: Chronic Treatment Summary: Overall during the hospital stay patient remained stable Patient was initially admitted to the hospital for left leg cellulitis. Patient has nonhealing surgical wound chronically. Patient does have wound care that comes to the house. General surgery was consulted here in the hospital who recommended the patient to be discharged home on p.o. antibiotics. Wound looks the same as before. No new changes were noted. Patient was discharged home under stable condition. Of note while patient was here in the hospital patient went down to have a cigarette smoke and then came back up and was having intermittent confusion. Cardia was called patient was transferred to the ICU. Patient became very combative and was given Valium 5 mg x2. Patient did well overall after that. Patient was alert oriented x3 and 3 hr post Valium. Patient then was discharged home under stable condition. UDS was done for possible drug abuse. UDS however was negative. Patient had CT was negative. The patient states that he does have some intermittent confusion sometimes. There may be a concern for meth abuse. As you DS does not protect all drugs in the urine there is a concern that patient might have had something that was not detected in the urine drug screen. However patient's repeat lab work here in the hospital after code yellow to remained negative for any acute abnormality and thus patient was discharged home under stable condition. - Disposition Disposition: ROUTINE DISCHARGE Condition: GOOD Patient Discharge Instructions: Please f.u with PCP and Dr Burroughs In clinic in 1 to 2 week post discharge. New medication. Ciprofloxacin and Doxycycline for 14 days Diet: Regular Activity: Ad leydi
[2018-02-19] MEDS ORDERED: COLLAGENASE 30 GM OINTMENT TOP SCH (09:00)
== END 2018-02-18 14:50 | disposition home or self-care (01) ==
LOC: ER 19:08 → ERHOLD 21:46 → INTOOBSV 21:46 → 2ND 22:58 → 3RD-ICU 02-18 07:35
PROVIDERS: ADMIT Internal Medicine; ATTEND Internal Medicine
DX: T81.89XA Other complications of procedures, not elsewhere classified, initial encounter (principal); S91.102A Unspecified open wound of left great toe without damage to nail, initial encounter; I25.10 Atherosclerotic heart disease of native coronary artery without angina pectoris; I11.0 Hypertensive heart disease with heart failure; I50.9 Heart failure, unspecified; J44.9 Chronic obstructive pulmonary disease, unspecified; J42 Unspecified chronic bronchitis; F17.220 Nicotine dependence, chewing tobacco, uncomplicated; D64.9 Anemia, unspecified; E78.5 Hyperlipidemia, unspecified; Z98.890 Other specified postprocedural states; Z89.432 Acquired absence of left foot
CPT/HCPCS: 36415; 70450; 73620; 80048 ×2; 80076; 80307 ×8; 81003; 82962 ×2; 83605; 83735; 84145; 85025 ×2; 85610; 85730; 87040 ×2; 87070; 87077 ×2; 87186 ×2; 87205; 93005; 96365; 96367; 96375; 99285; G0378 ×2; J2543 ×3; J3010; J3360; J3370; J3486; J7030 ×3; J3590

== ENCOUNTER 2018-03-21 10:49 | Emergency (ER) | payer OTHER ==
--- OUTSIDE RECORDS SUMMARY | 2018-03-21 10:51 | XMS REPORT | Clinical Summary ---
:1965 [facility] Address [address] [place] [address] Phone Care Team Providers Name Role Phone [...] Leukocytosis 04/17/2017 Tongue laceration 04/17/2017 Status epilepticus ([facility]) 04/16/2017 Encounters Date Type Specialty Care Team Description 04/16/2017 - Hospital Encounter General Internal Jose Desouza Status epilepticus 04/21/2017 Medicine Shalini, ([facility]);Acute MD respiratory failure Danna, with hypoxia MD Roxana ([facility]);Acute encephalopathy;CODY (acute kidney injury) ([facility]);Acute kidney injury ([facility]);H/O ETOH abuse;Hypertension, essential;Laceration of tongue, subsequent encounter;Tetrahydro cannabinol (THC) use disorder, mild, abuse after 03/20/2017 Social History Tobacco Use Types Packs/Day Years Used Date Current Every Day Smoker 1 Smokeless Tobacco: Current User Tobacco Cessation: Ready to Quit: No; Counseling Given: Yes Sex Assigned at Date Recorded Not on file Last Filed Vital Signs Vital Sign Reading Time Taken Blood Pressure 133/63 04/21/2017 8:05 AM [employer] Pulse 58 04/21/2017 8:05 AM [employer] Temperature 36.8 C (98.2 F) 04/21/2017 8:05 AM [employer] Respiratory Rate 18 04/21/2017 8:05 AM [employer] Oxygen Saturation 98% 04/21/2017 8:05 AM [employer] Inhaled Oxygen Concentration - - Weight 93.2 kg (205 lb 8 oz) 04/21/2017 5:00 AM [employer] Height 185.4 cm (6' 1") 04/16/2017 8:00 PM [employer] Body Mass Index 27.11 04/21/2017 5:00 AM [employer] Plan of Treatment Not on file Results [...] FOR DIALYSIS PATIENTS. Specimen Performing Laboratory Blood [address] [address] Blood gas, arterial (04/20/2017 10:49 AM)Only the [...] Performing Laboratory Blood, Arterial - Arm, Right [address] [address] PTH, intact (04/20/2017 4:25 AM) Component Value Ref Range PTH 41.8 8.5 - 72.5 pg/mL Specimen Performing Laboratory Blood - Arm, Left [address] [address] STOOL PATH CHARGE (04/19/2017 12:58 PM) Component Value Ref Range Pathogen exam charged Done Specimen Performing Laboratory Stool [address] [address] Shiga Toxin Screen (04/19/2017 12:58 PM) Component Value Ref Range Shiga toxin 1 Not detected Not detected Shiga toxin 2 Not detected Not detected Specimen Performing Laboratory Stool [address] [address] Clostridium difficile Toxin PCR (04/19/2017 12:58 PM) Component Value Ref Range C.Diff Toxin, PCR Not Detected Not Detected Specimen Performing Laboratory Stool [address] [address] Narrative This qualitative real-time polymerase chain reaction [...] (04/19/2017 12:58 PM) Specimen Performing Laboratory Stool [address] [address] Narrative See Scanned Results. Stool culture + Shiga toxin (04/19/2017 12:58 PM) Component Value Ref Range Result No Salmonella, Shigella or Campylobacter isolated Specimen Performing Laboratory Stool [address] [address] Sodium, random urine (04/19/2017 6:13 AM)Only the most recent of2 resultswithin the time period is included. Component Value Ref Range Sodium Urine 65 meq/L Specimen Performing Laboratory Urine [address] [address] Narrative Reference Range: No Normals Prothrombin time/INR (04/19/2017 5:37 AM)Only the most recent of2 resultswithin the time period is included. Component Value Ref Range Protime 14.5 11.7 - 14.7 seconds INR 1.1 <=5.9 Specimen Performing Laboratory Blood - Arm, Right [address] [address] Narrative RECOMMENDED COUMADIN/WARFARIN INR THERAPY RANGES STANDARD [...] Specimen Performing Laboratory Urine - Urine, Voided [address] [address] Narrative DRUGCUTOFF CONC. Cocaine 300 ng/mL Dwcvxtjuwuq10 ng/mL Nhqfzpkfzhzdkv746 ng/mL Barbiturate 200 ng/mL Dxjioqgckbfmh25 ng/mL Cimzsq480 ng/mL Methadone 300 ng/mL Amphetamine/ 1000 ng/mL Methamphetamine Oxycodone 300 ng/mL This assay provides an unconfirmed qualitative test result for the clinical management of patients in emergency situations. Chain of custody not maintained. Some suqm-fad-orjphbs medications, as well as adulterants, may cause [...] 1 % Specimen Performing Laboratory Blood [facility] [address] [address] CBC with platelet count + automated diff (04/18/2017 6:18 AM)Only the most recent of3 resultswithin the time period is included. Specimen Performing Laboratory Blood Narrative The following orders were created for panel order CBC with platelet count + automated diff. Procedure Abnormality Status --------- ------ CBC with platelet count ...[[id number]]AbnormalFinal result Please view results for these tests on the individual orders. US renal complete (04/17/2017 9:57 PM) Specimen Performing Laboratory [facility] Narrative FINAL REPORT Renal ultrasound. Clinical History: [...] MD Report Verified Date/Time:04/17/2017 22:34:25 Reading Location: [facility] B1 C013W Consult Reading Room Procedure Note Interface, External Ris In - 04/17/2017 10:36 PM [employer] FINAL REPORT Renal ultrasound. Clinical History: acute [...] Verified Date/Time: 04/17/2017 22:34:25 Reading Location: [facility] C013W Consult Reading Room brain without IV contrast (04/17/2017 6:31 PM) Specimen Performing Laboratory Qian Xiao'er RIS Narrative FINAL REPORT MRI Brain without [...] MD Report Verified Date/Time:04/17/2017 19:18:34 Reading Location: [facility] Radiology Reading Room Procedure Note Interface, External Ris In - 04/17/2017 7:20 PM [employer] FINAL REPORT MRI Brain without contrast Clinical [...] Report Verified Date/Time: 04/17/2017 19:18:34 Reading Location: [facility] Radiology Reading Room Creatine Kinase (CK) (04/17/2017 9:23 AM) Component Value Ref Range Total CK 136 29 - 200 U/L Specimen Performing Laboratory Blood - Arm, [address] [address] Urea Nitrogen, random urine (04/17/2017 9:08 AM) Component Value Ref Range Urea Nitrogen, Ur 172 mg/dL Specimen Performing Laboratory Urine - Urine, [address] [address] Narrative Reference Range: No Normals Myoglobin, random urine (04/17/2017 9:08 AM) Component Value Ref Range Myoglobin, Urine 32 (H) <28 mcg/L Comment: This test was developed and its analytical performance characteristics have been determined by [facility]. It has not been cleared or approved by the US Food and Drug Administration. This assay has been validated pursuant to the CLIA regulations and is used for clinical purposes. Specimen Performing Laboratory Urine - Urine, [place] [facility] [address] [place] [address] Narrative Performing Lab *[facility], [address] [place] [address] B Aime POSADAS, FCAP Creatinine, random urine (04/17/2017 9:08 AM) Component Value Ref Range Creatinine, Ur 69.7 mg/dL Specimen Performing Laboratory Urine - Urine, [address] [address] Narrative Reference Range: No Normals Urinalysis w/Microscopic (04/17/2017 9:08 AM)Only the most recent of2 resultswithin the time period is included. Component Value Ref Range Color, UA Light Yellow Clarity, UA Clear Specific Micro, UA 1.006 1.001 - 1.035 pH, UA [...] Uric Acid Crystals Rare Specimen Source Urine, [place] Specimen Performing Laboratory Urine - Urine, [address] [address] Eosinophil smear (04/17/2017 9:08 AM) Component Value Ref Range Eosinophil Smear No EOS seen No EOS seen Specimen Performing Laboratory Urine - Urine, [address] [address] EEG monitoring with video recording each 24 hours (04/17/2017 7:07 AM)Only the most recent of2 resultswithin the time period is included. Specimen Performing Laboratory GE RIS Narrative DATE OF TEST: 04/17/2017 DATE OF REPORT 04/17/2017 ACC: [id number] EE Start time: 16:42 Stop time: 18:44 ICD-10: R56.9 CPT Code: 31591 HISTORY: 51 y/o woman with history of [...] External Ris In - 04/17/2017 6:01 PM [employer] DATE OF TEST: 04/17/2017 DATE OF REPORT 04/17/2017 ACC: [id number] EE Start time: 16:42 Stop time: 18:44 ICD-10: R56.9 CPT Code: 62629 HISTORY: 51 y/o woman with history of [...] 366 ms QTC Calculation(Bazett) 467 ms P [place] 43 degrees R [place] 0 degrees T [place] 31 degrees Normal sinus rhythm Normal ECG No previous ECGs available Confirmed by MD Wilson Roberto ([id number]) on 04/16/2017 5:38:41 PM Procedure Note Interface, External Ris In - 04/16/2017 5:38 PM [employer] Ventricular Rate 98 BPM Atrial Rate 98 BPM P-R Interval 154 ms QRS Duration 78 ms Q-T Interval 366 ms QTC Calculation(Bazett) 467 ms P [place] 43 degrees R [place] 0 degrees T [place] 31 degrees Normal sinus rhythm Normal ECG [...] MD Report Verified Date/Time:04/16/2017 09:16:32 Reading Location: [facility] Radiology Reading Room Procedure Note Interface, External Ris In - 04/16/2017 9:18 AM [employer] FINAL REPORT Chest two views AP 04/16/2017 9:15 AM CLINICAL INDICATION: intubated COMPARISON: None available IMPRESSION: Support hardware is in satisfactory radiographic position. Cardiomediastinal contours are within normal limits. There is central pulmonary vasculature congestion without remarkable peripheral edema. There are streaky foci of atelectasis bilaterally. Superimposed pneumonia should be excluded clinically. Signed: Rogerio Hernandez MD Report Verified Date/Time: 04/16/2017 09:16:32 Reading Location: [facility] Radiology Reading Room AWAKE/ASLEEP (04/16/2017 9:08 AM) Specimen Performing Laboratory GE RIS Narrative DATE OF TEST: 04/16/2017 DATE OF REPORT 04/16/2017 ACC: [id number] EE Start time: 08:21 Stop time: 08:42 ICD-10: R56.9 CPT Code: 13033 HISTORY: 51 y/o woman with history of [...] External Ris In - 04/16/2017 1:27 PM [employer] DATE OF TEST: 04/16/2017 DATE OF REPORT 04/16/2017 ACC: [id number] EE Start time: 08:21 Stop time: 08:42 ICD-10: R56.9 CPT Code: 18086 HISTORY: 51 y/o woman with history of [...] Folate 8.0 >=7.0 ng/mL Specimen Performing Laboratory [address] [address] Vitamin B12 (04/16/2017 5:23 AM) Component Value Ref Range Vitamin B12 450 213 - 816 pg/mL Specimen Performing Laboratory Blood [address] [address] Urine culture (04/16/2017 4:49 AM) Component Value Ref Range Result No growth Specimen Performing Laboratory Urine - Urine, [place] [address] [address] Blood culture (04/16/2017 4:48 AM) Component Value Ref Range Result No growth in 5 days Specimen Performing Laboratory Blood - Arm, Right [address] [address] Phosphorus (04/16/2017 4:47 AM) Component Value Ref Range Phosphorus 3.0Comment: Specimen moderately hemolyzed 2.3 - 4.7 mg/dL Specimen Performing Laboratory [address] [address] Magnesium (04/16/2017 4:47 AM) Component Value Ref Range Magnesium 3.0 (H)Comment: Specimen moderately hemolyzed 1.6 - 2.6 mg/dL Specimen Performing Laboratory [address] [address] Hepatic function panel (04/16/2017 4:47 AM) Component [...] 55 U/L Specimen Performing Laboratory Blood [facility] [address] [address] after 03/20/2017
--- OUTSIDE RECORDS SUMMARY | 2018-03-21 10:56 | XMS REPORT | Continuity of Care Document ---
:1965 Author Organization Interface Problems Problem Status Onset Classification Date Comments Source Date Reported ANEMIA Active 04/04/20 The [place] Discharge 03/14/20 03/17/2016 The Diagnosis: Acute [place] on chronic renal failure Discharge 03/14/20 03/17/2016 The Diagnosis: Anemia 16 [place] Discharge 03/14/20 03/17/2016 The Diagnosis: [address] [place] [address] Post-operative pain Discharge 03/14/20 03/17/2016 The Diagnosis: Acute 16 [place] hypokalemia OTHER Active 03/13/20 The [place] FOOT GANGRENE Active 01/31/20 The [place] LEFT FOOT SORES Active 01/31/20 The [place] Discharge 02/17/20 02/19/2015 The Diagnosis: 15 [place] Hyperlipidemia Discharge 02/17/20 02/19/2015 The Diagnosis: 15 [place] Hypertension Discharge 02/17/20 02/19/2015 The Diagnosis: Angina 15 [place] pectoris CHEST PAIN Active 02/16/20 The 15 [place] CP Active 02/16/20 The 15 [place] Discharge 02/10/20 02/12/2015 The Diagnosis: Wrist 15 [place] sprain LEFT WRIST PAIN Active 02/10/20 The [place] Discharge 01/24/20 01/26/2015 The Diagnosis: 15 [place] Epileptic seizure, generalized Discharge 01/24/20 01/26/2015 The Diagnosis: 15 [place] Cerebral seizure AMS Active 01/24/20 The 15 [place] WOUND INFECTION V Active 10/21/19 The NECFAS;CHRONIC 14 [place] OSTEOMY Acute Active Problem 04/08/2016 The osteomyelitis [place] CHF - Congestive Active Problem 04/08/2016 The heart failure [place] HTN (<span Active Problem 04/08/2016 The ID="[id number]"> [place] Confirmed</span>) Bronchitis Active Problem 04/08/2016 [place] COPD Active Problem 04/08/2016 [place] Nose bleed Active Problem 04/08/2016 [place] Seizure Active Problem 04/08/2016 [place] H/O candidiasis Active Problem 04/08/2016 [place] H/O amputation of Active Problem 04/08/2016 The lesser toe [place] Hx of peripheral Active Problem 04/08/2016 The vascular disease [place] BPH (<span Active Problem 04/08/2016 The ID="[id number]" [place] >Confirmed</span> ) CELLULITIS OF Active The FOOT [place] AC Active [facility] The OSTEOMYELITIS-UNS [place] PEC CHEST PAIN NOS Active [place] GANGRENE, NOT Active The ELSEWHERE [place] CLASSIFIED ANEMIA, Active The UNSPECIFIED [place] Medications Medication Details Route Status Patient Ordering Order Source Instructions Provider Date Sodium Chloride IVPB, 150 Active The 0.9% IV ml/hr, PRN, 2015 [place] Start date: 04/05/16 8:00:00 [employer], Duration: 30, 1,000 ml EPINEPHrine 0.5 mg, 0.5 Active The mL, Route: 2015 [place] IVP, Drug form: INJ, PRN, PRN Other -See Comment, Start date: 04/05/16 7:22:00 [employer], Duration: 30 day, Stop date: 05/05/16 7:21:00 CSTNotes: MEDICATION WASTE Product Size: 1 mg Product Wasted: ___ mg Solu-CORTEF 100 mg, 2 mL, Active The Route: IVP2015 [place] Drug form: PDR/INJ, PRN, PRN Other -See Comment, Start date: 04/05/16 7:22:00 [employer], Duration: 30 day, Stop date: 05/05/16 7:21:00 CSTNotes: (Same as: Solu-CORTEF) Benadryl 50 mg, 1 mL, Active The Route: IVP, 2015 [place] Drug form: INJ, PRN, PRN Other -See Comment, Start date: 04/05/16 7:22:00 [employer], Duration: 30 day, Stop date: 05/05/16 7:21:00 CSTNotes: (Same as: Benadryl) Sodium Chloride IV, 0 ml/hr, Active The 0.9% IV PRN, PRN Blood 2015 [place] Transfusion, Start date: 04/05/16 7:21:00 [employer], Duration: 30, 250 ml heparin flush 500 unit, 5 Active The mL, Route: 2015 [place] IVP, Drug form: SOLN, PRN, PRN Line Flush, Start date: 04/05/16 7:21:00 [employer], Duration: 30 day, Stop date: 05/05/16 7:20:00 CSTNotes: (Same as: Heparin Lock Flush) BD Normal Saline 20 mL, Route: Active The Flush IVP, Drug 2015 [place] Form: INJ, PRN, PRN Line Flush, Start date: 04/05/16 7:21:00 [employer], Duration: 30 day, Stop date: 05/05/16 7:20:00 CSTNotes: (Same as: BD Posiflush) Benadryl 25 mg, 0.5 mL, Active The Route: IVP, 2015 [place] Drug form: INJ, Before Transfusion, PRN Blood Transfusion, Start date: 04/05/16 7:21:00 [employer], Duration: 30 day, Stop date: 05/05/16 7:20:00 CSTNotes: (Same as: Benadryl) Tylenol 650 mg, 2 tab, Active The Route: PO, 2015 [place] Drug form: TAB, Before Transfusion, PRN Blood Transfusion, Start date: 04/05/16 7:20:00 [employer], Duration: 30 day, Stop date: 05/05/16 7:19:00 CSTNotes: Do not exceed 4 gm/day. (Same as: Tylenol) Acetaminophen 325 1 tab, Route: Inactive The MG / Hydrocodone PO, Drug Form: 2015 [place] Bitartrate 5 MG TAB, Dosing Oral Tablet [[place] Weight 98.636, 5/325] kg, ONCE, STAT, Start date: 03/14/16 6:34:00 CDT, Stop date: 03/14/16 6:34:00 CDTNotes: (Same as: [place] 325/5) Do not exceed 4gm/day of acetaminophen. Acetaminophen 300 1 tab, PO, No Longer The MG / Codeine Q4H, PRN Pain, Active 2015 [place] Phosphate 30 MG X 2 day, # 12 Oral Tablet tab, 0 [Tylenol with Refill(s) Codeine #3] Zofran 4 mg, 2 mL, No Longer The Route: IVP, Active 2015 [place] Drug form: INJ, ONCE, Dosing Weight 98.636, kg, Priority: STAT, Start date: 03/13/16 23:18:00 CDT, Stop date: 03/13/16 23:18:00 CDTNotes: (Same as: Zofran) MEDICATION WASTE Product Size: 4 mg Product Wasted: ___ mg Dilaudid 0.5 mg, 0.5 No Longer The mL, Route: Active 2015 [place] IVP, Drug form: INJ, ONCE, Dosing Weight 98.636, kg, Priority: STAT, Start date: 03/13/16 23:18:00 CDT, Stop date: 03/13/16 23:18:00 CDTNotes: Same as: Dilaudid Sodium Chloride 500 mL, 500 No Longer The 0.154 MEQ/ML ml/hr, Infuse Active 2015 [place] Injectable Over: 1 hr, Solution Route: IV, 500, Drug form: INJ, ONCE, Priority: STAT, Dosing Weight 98.636 kg, Start date: 03/13/16 23:18:00 CDT, Duration: 1 doses or times, Stop date: 03/13/16 23:18:00 CDT Oxycodone 15 mg=3 tab, Active The Hydrochloride 5 MG PO, Q4H, PRN 2015 [place] Oral Tablet Pain Score 7-10, 0 Refill(s) Oxycodone 15 mg, 3 tab, Inactive The Hydrochloride 5 MG Route: PO, 2015 [place] Oral Tablet Drug form: TAB, Q4H, Dosing Weight 96.023, kg, PRN Pain Score 7-10, Start date: 02/18/16 8:43:00 CDT, Duration: 30 day, Stop date: 03/19/16 8:42:00 CDTNotes: (Same as: Roxicodone) Ceftriaxone 2 gm, Route: No Longer The IVPB, [id number], Active 2015 [place] Dosing Weight 96.023, kg, Start date: 02/17/16 15:00:00 CDT, Duration: 30 day, Stop date: 03/17/16 15:00:00 CDTNotes: (Same As: Rocephin). Use with 100 mL NS and infuse over 30 min MEDICATION WASTE Product Size: 2000 mg Product Wasted: ___ mg Albuterol 0.83 NEB, PRN, PRN Active The MG/ML Inhalant Respiratory 2015 [place] Solution Protocol, 0 Refill(s) chlorhexidine 1 appl, BATHE, Active The gluconate 40 MG/ML Q-M-W-F, 0 [place] Medicated Liquid Refill(s) Soap tamsulosin 0.4 mg 0.4 mg=1 cap, Active The oral capsule PO, After 2015 [place] Dinner, 0 Refill(s) fluconazole 100 mg 200 mg=2 tab, Active The oral tablet PO, [id number], 0 2015 [place] Refill(s) pantoprazole 40 mg 40 mg=1 tab, Active The oral enteric PO, Before 2015 [place] coated tablet Breakfast, 0 Refill(s) Acetaminophen 325 1 tab, PO, Active The MG / Hydrocodone Q4H, PRN Pain 2015 [place] Bitartrate 5 MG Score 1-3, 0 Oral Tablet Refill(s) cefTRIAXone + 2 gm, Route: No Longer The sodium chloride IVPB, [id number], Active 2015 [place] 0.9% INJ 100 mL Dosing Weight 96.023, kg, Start date: 02/15/16 18:00:00 CDT, Duration: 2 day, Stop date: 02/16/16 18:00:00 CDTNotes: (Same As: Rocephin). Use with 100 mL NS and infuse over 30 min MEDICATION WASTE Product Size: 2000 mg Product Wasted: ___ mg Flomax 0.4 mg, 1 cap, No Longer The Route: PO, Active 2015 [place] Drug form: CAP, After Dinner, Dosing Weight [...] No Longer The Route: PO, Active 2015 [place] Drug form: TAB, [id number], Dosing Weight 96.023, kg, Start date: 02/12/16 16:00:00 CDT, Duration: 30 day, Stop date: 03/12/16 16:00:00 CDTNotes: (Same as: Diflucan) Dilaudid 1.5 mg, 0.75 No Longer The mL, Route: Active 2015 [place] IVP, Drug form: INJ, Q4H, Dosing Weight 96.023, kg, PRN Pain Score 7-10, Start date: 02/12/16 14:19:00 CDT, Stop date: 03/13/16 14:18:00 CDTNotes: Same as: Dilaudid gabapentin 600 mg, 2 cap, No Longer The Route: PO, Active 2015 [place] Drug form: CAP, TID, Dosing Weight 97.273, kg, Start date: 02/12/16 13:00:00 CDT, Duration: 30 day, Stop date: 03/13/16 9:00:00 CDTNotes: (Same as: Neurontin) Naloxone 0.4 mg, 1 mL, Inactive The Route: IVP, 2015 [place] Drug form: INJ, Q2MIN, Dosing Weight 96.023, kg, PRN Narcotic Reversal, Start date: 02/12/16 9:59:00 CDT, Duration: 8 doses or times, Stop date: Limited # of timesNotes: Same as Narcan Lorazepam 0.5 mg, 0.25 Inactive The mL, Route: 2015 [place] IVP, Drug form: INJ, Q20Min, Dosing Weight 96.023, kg, PRN Anxiety, Start date: 02/12/16 9:59:00 CDT, Duration: 3 doses or times, Stop date: Limited # of timesNotes: (Same as: Ativan) Ondansetron 4 mg, Route: Inactive The IVP, ONCE, 2015 [place] Dosing Weight 96.023, kg, PRN Nausea & Vomiting, Start date: 02/12/16 9:59:00 CDT Glycopyrrolate 0.2 mg, 1 mL, Inactive The Route: IVP, 2015 [place] Drug form: INJ, Q5Min, Dosing Weight 96.023, kg, PRN Bradycardia, Start date: 02/12/16 9:59:00 CDT, Duration: 3 doses or times, Stop date: Limited # of timesNotes: (Same as: [place]) Flumazenil 0.2 mg, 2 mL, Inactive The Route: IVP, 2015 [place] Drug form: INJ, PRN, Dosing Weight 96.023, kg, PRN Benzodiazepine Reversal, Initial dose, Start date: 02/12/16 9:59:00 CDT, Duration: 30 day, Stop date: 03/13/16 9:58:00 CDTNotes: (Same as: Romazicon) Fentanyl 25 microgram, Inactive The 0.5 mL, Route: 2015 [place] IVP, Drug form: INJ, Q5Min, Dosing Weight 96.023, kg, PRN Pain Score 4-6, Start date: 02/12/16 9:59:00 CDT, Duration: 4 doses or times, Stop date: Limited # of timesNotes: (Same as: Sublimaze) Preservative free. Hydralazine 10 mg, 0.5 mL, Inactive The Route: IVP, 2015 [place] Drug form: INJ, Q20Min, Dosing Weight 96.023, kg, PRN Elevated BP, Start date: 02/12/16 9:59:00 CDT, Duration: 2 doses or times, Stop date: Limited # of timesNotes: (Same as: Apresoline) Push over 5 minutes Hydromorphone 0.5 mg, 0.5 Inactive The mL, Route: 2015 [place] IVP, Drug form: INJ, Q5Min, Dosing Weight 96.023, kg, PRN Pain Score 7-10, Start date: 02/12/16 9:59:00 CDT, Duration: 4 doses or times, Stop date: Limited # of timesNotes: Same as: Dilaudid Labetalol 10 mg, 2 mL, Inactive The Route: IVP, 2015 [place] Drug form: INJ, Q5Min, Dosing Weight 96.023, kg, PRN Elevated BP, Start date: 02/12/16 9:59:00 CDT, Duration: 5 doses or times, Stop date: Limited # of times fentaNYL (ANES) Route: IV, Inactive The Drug form: 2015 [place] INJ, ONCE, Stop date: 02/12/16 8:40:00 CDT propofol (ANES) Route: IV, Inactive The Drug form: 2015 [place] INJ, ONCE, Stop date: 02/12/16 8:40:00 CDT lidocaine (ANES) Route: IV, Inactive The Drug form: 2015 [place] INJ, ONCE, Stop date: 02/12/16 8:40:00 CDT LR 1000 mL INJ Route: IV, Inactive The (ANES) Total Volume: 2015 [place] 1,000, Start date: 02/12/16 7:55:00 CDT, Stop date: 02/12/16 8:55:00 CDT Ceftriaxone 2 gm, Route: No Longer The IVPB, [id number], Active 2015 [place] Dosing Weight 96.023, kg, Start date: 02/11/16 13:00:00 CDT, Duration: 5 day, Stop date: 02/15/16 13:00:00 CDTNotes: (Same As: Rocephin). Use with 100 mL NS and infuse over 30 min MEDICATION WASTE Product Size: 2000 mg Product Wasted: ___ mg Dilaudid 1 mg, 1 mL, No Longer The Route: IVP, Active 2015 [place] Drug form: INJ, Q6H, Dosing Weight 96.023, kg, PRN Pain Score 7-10, Start date: 02/11/16 8:37:00 CDT, Duration: 30 day, Stop date: 03/12/16 8:36:00 CDTNotes: Same as: Dilaudid vancomycin 750 mg, 150 No Longer The mL, Route: Active 2015 [place] IVPB, Drug form: INJ, Q24H, Start date: 02/11/16 6:00:00 CDT, Duration: 30 day, Stop date: 03/11/16 6:00:00 CDTNotes: TIME CRITICAL MEDICATION Same as: Vancocin Infusion rate 2000 mg: infuse over 2.5 hours metoprolol 50 mg, 1 tab, No Longer The Route: PO, Active 2015 [place] Drug form: ERTAB, Daily, Start date: 02/10/16 9:00:00 CDT, Duration: 30 day, Stop date: 03/10/16 9:00:00 CDTNotes: (Same as: Toprol XL) May split tab, but do not crush. Alprazolam 1 MG 1 mg, 1 tab, No Longer The Oral Tablet Route: PO, Active 2015 [place] [Xanax] Drug form: TAB, Q12H, Dosing Weight 96.023, kg, PRN Anxiety, Start date: 02/10/16 8:19:00 CDT, Duration: 30 day, Stop date: 03/11/16 8:18:00 CDTNotes: With food or milk (Same as: Xanax) vancomycin 750 mg, 150 Inactive The mL, Route: 2015 [place] IVPB, Drug form: INJ, ONCE, Start date: 02/10/16 5:00:00 CDT, Stop date: 02/10/16 5:00:00 CDTNotes: TIME CRITICAL MEDICATION Same as: Vancocin Infusion rate 2001 mg: infuse over 2.5 hours Anoro 62.5mcg/25 Anoro No Longer The mcg 62.5mcg/25 Active 2015 [place] mcg, 1 puff, Route: INHALATION, RBID, 02/09/16 20:00:00 CDT, Duration: 30 day, Stop date: 03/10/16 8:00:00 CDT ketOROLAC 30 mg/mL 60 mg, Route: Inactive The injectable IVP, Drug 2015 [place] solution form: INJ, ONCE, Dosing Weight 96.023, kg, Start date: 02/09/16 17:40:00 CDT, Duration: 1 doses or times, Stop date: 02/09/16 17:40:00 CDT Vancomycin Dosing Vancomycin No Longer The per RPh Dosing per Active 2015 [facility], ., Drug form: MISC, Route: MISC, PRN, PRN Other -See Comment, 02/09/16 14:51:00 CDT, Duration: 30 day, Stop date: 03/10/16 14:50:00 CDT Dilaudid 1 mg, 1 mL, No Longer The Route: IVP, Active 2015 [place] Drug form: INJ, Q4H, Dosing Weight 96.023, kg, PRN Pain Score 7-10, Start date: 02/09/16 13:01:00 CDT, Duration: 30 day, Stop date: 03/10/16 13:00:00 CDTNotes: Same as: Dilaudid Sodium Chloride 500 mL, 500 Inactive The 0.154 MEQ/ML ml/hr, Infuse 2015 [place] Injectable Over: 1 hr, Solution Route: IV, 500, Drug form: INJ, ONCE, Priority: STAT, Dosing Weight 96.023 kg, Start date: 02/09/16 12:59:00 CDT, Duration: 1 doses or times, Stop date: 02/09/16 12:59:00 CDT pantoprazole 40 mg, 1 tab, No Longer The Route: PO, Active 2015 [place] Drug form: ECTAB, Before Breakfast, Dosing Weight 96.023, kg, Start date: 02/09/16 9:00:00 CDT, Stop date: 03/09/16 7:30:00 CDTNotes: Tablet should not be chewed or crushed. (Same as: Protonix) chlorhexidine 1 appl, Route: No Longer The gluconate 40 MG/ML BATHE, Active 2015 [place] Medicated Liquid Q-M-W-F, Drug Soap form: SOAP, Start date: 02/09/16 9:00:00 CDT, Duration: 30 day, Stop date: 03/08/16 9:00:00 CDTNotes: (Same As: [place]) Simvastatin 20 mg, 1 tab, No Longer The Route: PO, Active 2015 [place] Drug form: TAB, Bedtime, Dosing Weight 96.023, kg, Start date: 02/08/16 21:00:00 CDT, Duration: 30 day, Stop date: 03/08/16 21:00:00 CDTNotes: (Same as: Zocor) Cefuroxime 1.5 gm, Route: No Longer The IVPB, [id number], Active 2015 [place] Dosing Weight 96.023, kg, Start date: 02/08/16 21:00:00 CDT, Duration: 3 doses or times, Stop date: 02/09/16 13:00:00 CDT Neutra-Phos 2 pkt, Route: No Longer The PO, Drug Form: Active 2015 [place] PDR/REC, Dosing Weight 96.023, kg, PRN, PRN [...] phosphate + sodium mL, Route: Active 2015 [place] chloride 0.9% 500 IVPB, Drug ml INJ [...] phosphate + sodium mL, Route: Active 2015 [place] chloride 0.9% INJ IVPB, PRN, 250 mL Dosing Weight 96.023, kg, PRN Abnormal Lab Result, Start date: 02/08/16 20:04:00 CDT, Duration: 30 day, Stop date: 03/09/16 20:03:00 CDT, FOR ICU USE ONLYNotes: (Same as: K Phosphate.) 1 mMol phoshate has 1.47 mEq potassium Infuse over 4 hours Magnesium Oxide 800 mg, 2 tab, No Longer The Route: PO, Active 2015 [place] Drug form: TAB, PRN, Dosing Weight 96.023, kg, PRN Abnormal Lab Result, FOR ICU USE ONLY, Start date: 02/08/16 20:04:00 CDT, Duration: 30 day, Stop date: 03/09/16 20:03:00 CDTNotes: (Same as: Mag-Ox 400) Magnesium oxide [id number] elemental magnesium Dose=____mg magnesium oxide (___mg elemental magnesium) Magnesium Sulfate 2 gm, 50 mL, No Longer The Route: IVPB, Active 2015 [place] Drug form: INJ, PRN, Dosing Weight 96.023, kg, PRN Abnormal Lab Result, Start date: 02/08/16 20:04:00 CDT, Duration: 30 day, Stop date: 03/09/16 20:03:00 CDT, FOR ICU USE ONLYNotes: WASTE: F/P - Sink; E - Municipal Trash Bin potassium chloride 20 mEq, 15 mL, No Longer The Route: [place], Active 2015 [place] Drug form: LIQ, PRN, Dosing Weight 96.023, kg, PRN Abnormal Lab Result, Start date: 02/08/16 20:04:00 CDT, Duration: 30 day, Stop date: 03/09/16 20:03:00 CDT, FOR ICU USE ONLYNotes: (Same as: Potassium Chloride) sodium phosphate + 15 mmol, 5 mL, No Longer The sodium chloride Route: IVPB, Active 2015 [place] 0.9% INJ 250 mL PRN, Dosing Weight 96.023, kg, PRN Abnormal Lab Result, Start date: 02/08/16 20:04:00 CDT, Duration: 30 day, Stop date: 03/09/16 20:03:00 CDT, FOR ICU USE ONLY sodium phosphate + 45 mmol, 15 No Longer The sodium chloride mL, Route: Active 2015 [place] 0.9% 500 ml INJ IVPB, Drug 500 mL form: INJ, PRN, Dosing Weight 96.023, kg, PRN Abnormal Lab Result, Start date: 02/08/16 20:04:00 CDT, Duration: 30 day, Stop date: 03/09/16 20:03:00 CDT, FOR ICU USE ONLY Calcium Carbonate 500 mg, 1 tab, No Longer The 500 MG Chewable Route: PO, Active 2015 [place] Tablet Drug form: CHEWTAB, PRN, Dosing Weight 96.023, kg, PRN Abnormal Lab Result, FOR ICU USE ONLY, Start date: 02/08/16 20:04:00 CDT, Duration: 30 day, Stop date: 03/09/16 20:03:00 CDTNotes: (Same As: [place]) Calcium Carbonate 500 hc=119 mg elemental calcium Dose= mg calcium carbonate ( mg elemental calcium) Calcium Gluconate 1 gm, 10 mL, No Longer The Route: IVPB, Active 2015 [place] PRN, Dosing Weight 96.023, kg, PRN Abnormal Lab Result, Start date: 02/08/16 20:04:00 CDT, Duration: 30 day, Stop date: 03/09/16 20:03:00 CDT, FOR ICU USE ONLYNotes: WASTE: F/P - Sink; E - Municipal Trash Bin Albuterol 0.83 2.49 mg, 3 mL, No Longer The MG/ML Inhalant Route: NEB, Active 2015 [place] Solution Drug form: SOLN, PRN, Dosing Weight 96.023, kg, PRN Respiratory Protocol, Start date: 02/08/16 20:04:00 CDT, Duration: 30 day, Stop date: 03/09/16 20:03:00 CDTNotes: SEE RT DOCUMENTATION (Same as: Proventil) Dextrose 50% 25 gm, 50 mL, No Longer The Syringe Route: IVP, Active 2015 [place] Drug Form: INJ, Dosing Weight 96.023, kg, PRN, PRN Blood Glucose Results, Start date: 02/08/16 20:04:00 CDT, Duration: 30 day, Stop date: 03/09/16 20:03:00 CDT Docusate 100 mg, 1 cap, No Longer The Route: PO, Active 2015 [place] Drug form: CAP, BID, Dosing Weight 96.023, kg, PRN Constipation, Start date: 02/08/16 20:04:00 CDT, Duration: 30 day, Stop date: 03/09/16 20:03:00 CDTNotes: (Same as: Colace) (Do Not Crush) Glucagon 1 mg, Route: No Longer The IM, Drug form: Active 2015 [place] PDR/INJ, PRN, Dosing Weight 96.023, kg, PRN Blood Glucose Results, Start date: 02/08/16 20:04:00 CDT, Duration: 30 day, Stop date: 03/09/16 20:03:00 CDT Acetaminophen 325 2 tab, Route: No Longer The MG / Hydrocodone PO, Drug Form: Active 2015 [place] Bitartrate 5 MG TAB, Dosing Oral Tablet Weight 96.023, kg, Q4H, PRN Pain Score 4-6, Start date: 02/08/16 20:04:00 CDT, Duration: 30 day, Stop date: 03/09/16 20:03:00 CDTNotes: (Same as: [place] 325/5) Do not exceed 4gm/day of acetaminophen. Acetaminophen 650 mg, 2 tab, No Longer The Route: PO, Active 2015 [place] Drug form: TAB, Q4H, Dosing Weight 96.023, kg, PRN Pain 1-3/Temp > 100.4 F, Start date: 02/08/16 20:04:00 CDT, Duration: 30 day, Stop date: 03/09/16 20:03:00 CDTNotes: Do not exceed 4 gm/day. (Same as: Tylenol) D5W 1/2NS + KCL 1,000 mL, No Longer The 20mEq/L 1000ml Rate: 50 Active 2015 [place] (Premix) 1,000 mL ml/hr, Infuse over: 20 hr, Route: IV, Dosing Weight 96.023 kg, Total Volume: 1,000, Start date: 02/08/16 20:04:00 CDT, Duration: 30 day, Stop date: 03/09/16 20:03:00 CDTNotes: PREMIX IV - Do Not Alter WASTE: F/P - Sink; E - Municipal Trash Bin Ondansetron 4 mg, 2 mL, Inactive The Route: IVP, 2015 [place] Drug form: INJ, ONCE, Dosing Weight 96.023, kg, PRN Nausea & Vomiting, Start date: 02/08/16 9:59:00 CDTNotes: (Same as: Zofran) MEDICATION WASTE Product Size: 4 mg Product Wasted: ___ mg Promethazine 6.25 mg, 25 Inactive The mL, Route: 2015 [place] IVPB, Drug form: SOLN, ONCE, Dosing Weight 96.023, kg, PRN Nausea & Vomiting, Start date: 02/08/16 9:59:00 CDT Flumazenil 0.2 mg, 2 mL, Inactive The Route: IV2015 [place] Drug form: INJ, PRN, Dosing Weight 96.023, kg, PRN Benzodiazepine Reversal, Initial dose, Start date: 02/08/16 9:59:00 CDT, Duration: 30 day, Stop date: 03/09/16 9:58:00 CDTNotes: (Same as: Romazicon) Naloxone 0.4 mg, 1 mL, Inactive The Route: IVP, 2015 [place] Drug form: INJ, Q2MIN, Dosing Weight 96.023, kg, PRN Narcotic Reversal, Start date: 02/08/16 9:59:00 CDT, Duration: 8 doses or times, Stop date: Limited # of timesNotes: Same as Narcan Fentanyl 50 microgram, Inactive The 1 mL, Route: 2015 [place] IVP, Drug form: INJ, Q5Min, Dosing Weight 96.023, kg, PRN Pain Score 7-10, Start date: 02/08/16 9:59:00 CDT, Duration: 2 doses or times, Stop date: Limited # of timesNotes: (Same as: Sublimaze) Preservative free. Hydromorphone 1 mg, 1 mL, Inactive The Route: IVP, 2015 [place] Drug form: INJ, Q5Min, Dosing Weight 96.023, kg, PRN Pain Score 7-10, Start date: 02/08/16 9:59:00 CDT, Duration: 4 doses or times, Stop date: Limited # of timesNotes: Same as: Dilaudid Labetalol 10 mg, 2 mL, Inactive The Route: IVP, 2015 [place] Drug form: INJ, Q5Min, Dosing Weight 96.023, kg, PRN Elevated BP, Start date: 02/08/16 9:59:00 CDT, Duration: 5 doses or times, Stop date: Limited # of times ondansetron (ANES) Route: IV, Inactive The Drug form: 2015 [place] INJ, ONCE, Stop date: 02/08/16 9:40:00 CDT hydromorphone Route: IV, Inactive The (ANES) Drug form: 2015 [place] INJ, ONCE, Stop date: 02/08/16 9:15:00 CDT LR 1000 mL INJ Route: IV, Inactive The (ANES) Total Volume: 2015 [place] 1,000, Start date: 02/08/16 9:08:00 CDT, Stop date: 02/08/16 10:08:00 CDT heparin (ANES) Route: IV, Inactive The Drug form: 2015 [place] INJ, ONCE, Stop date: 02/08/16 8:55:00 CDT fentaNYL (ANES) Route: IV, Inactive The Drug form: 2015 [place] INJ, ONCE, Stop date: 02/08/16 8:40:00 CDT propofol (ANES) Route: IV, Inactive The Drug form: 2015 [place] INJ, ONCE, Stop date: 02/08/16 8:40:00 CDT lidocaine (ANES) Route: IV, Inactive The Drug form: [place] INJ, ONCE, Stop date: 02/08/16 8:40:00 CDT midazolam (ANES) Route: IV, Inactive The Drug form: [place] SOLN, ONCE, Stop date: 02/08/16 8:40:00 CDT rocuronium (ANES) Route: IV, Inactive The Drug form: 2015 [place] INJ, ONCE, Stop date: 02/08/16 8:40:00 CDT piperacillin-tazob IV, ONCE Inactive The actam (ANES) [place] famotidine (ANES) Route: IV, Inactive The Drug form: 2015 [place] INJ, ONCE, Stop date: 02/08/16 8:25:00 CDT [...] No Longer The Route: PO, Active 2015 [place] Drug form: TAB, Q4H, PRN Pain 1-3/Temp > 100.4 F, Start date: 02/07/16 10:35:00 CDT, Duration: 30 day, Stop date: 03/08/16 10:34:00 CDTNotes: (Same as: Roxicodone) oxyCODONE 10 mg 15 mg, Route: Inactive The extended release PO, Drug form: 2015 [place] ERTAB, Q6H, Start date: 02/05/16 18:00:00 CDT, Duration: 30 day, Stop date: 03/06/16 12:00:00 CDT Roxicodone 15 mg, 3 tab, No Longer The Route: PO, Active 2015 [place] Drug form: TAB, Q6Hnow, Start date: 02/05/16 15:21:00 CDT, Stop date: 03/06/16 11:00:00 CDTNotes: (Same as: Roxicodone) Dilaudid 2 mg, 1 mL, No Longer The Route: IV, Active 2015 [place] Drug form: INJ, Q2H, Dosing Weight 97.273, kg, PRN Pain Score 7-10, Start date: 02/05/16 15:04:00 CDT, Duration: 30 day, Stop date: 03/06/16 15:03:00 CDTNotes: Same as: Dilaudid sodium chloride 1,000 mL, No Longer The 0.9% 1000 ml INJ Rate: 50 Active 2015 [place] 1,000 mL ml/hr, Infuse over: 20 hr, Route: IV, Dosing Weight 97.273 kg, Total Volume: 1,000, Start date: 02/04/16 11:14:00 CDT, Stop date: 03/05/16 11:13:00 CDT vancomycin 750 mg, 150 No Longer The mL, Route: Active 2015 [place] IVPB, Drug form: INJ, [id number], Start date: 02/02/16 15:00:00 CDT, Duration: 30 day, Stop date: 03/03/16 3:00:00 CDTNotes: TIME CRITICAL MEDICATION Same as: Vancocin Infusion rate 2000 mg: infuse over 2.5 hours atorvastatin 40 mg, 1 tab, No Longer The Route: PO, Active [address] [place] [address] Drug form: TAB, Bedtime, Dosing Weight 97.273, kg, Start date: 02/01/16 21:00:00 CDT, Duration: 30 day, Stop date: 03/01/16 21:00:00 CDTNotes: (Same as: Lipitor) Vancomycin 1 ea, Route: Inactive The MISC, Dosing 2015 [place] Weight 97.273, kg, ONCALL, Start date: 02/01/16 15:00:00 CDT, Duration: 1 doses or times, Pharmacy to dose Acetaminophen 325 1 tab, Route: No Longer The MG / Hydrocodone PO, Drug Form: Active 2015 [place] Bitartrate 10 MG TAB, Dosing Oral Tablet [[place] Weight 97.273, 10/325] kg, Q6H, PRN Pain Score 4-6, Start date: 02/01/16 13:10:00 CDT, Duration: 30 day, Stop date: 03/02/16 13:09:00 CDTNotes: Do not exceed 4gm/day of acetaminophen. (Same as: [place] 325/10) Tylenol 650 mg, 2 tab, No Longer The Route: PO, Active 2015 [place] Drug form: TAB, Q6H, Dosing Weight 97.273, kg, PRN Pain Score 1-3, Start date: 02/01/16 13:02:00 CDT, Duration: 30 day, Stop date: 03/02/16 13:01:00 CDTNotes: Do not exceed 4 gm/day. (Same as: Tylenol) Vancomycin 1,000 mg, No Longer The Route: IVPB, Active 2015 [place] [id number], Dosing Weight 97.273, kg, Start date: 02/01/16 13:00:00 CDT, Stop date: 03/02/16 1:00:00 CDTNotes: TIME CRITICAL MEDICATION (Same As: Vancocin) Infusion rate 2001 mg: infuse over 2.5 hours MEDICATION WASTE Product Size: 1000 mg Product Wasted: ___ mg Zosyn 3.375 gm, No Longer The Route: IVPB, Active 2015 [place] [id number], Dosing Weight 97.273, kg, CrCl Notes: (Same as: Zosyn) Dosing based on Piperacillin component MEDICATION WASTE Product Size: 3375 mg Product Wasted: ___ mg Lisinopril 5 mg, 1 tab, No Longer The Route: PO, Active 2015 [place] Drug form: TAB, Daily, Dosing Weight 97.273, [...] Tartrate 100 MG Route: PO, Active 2015 [place] Extended Release Drug form: Tablet [Toprol] ERTAB, Daily, Start date: 02/01/16 9:00:00 CDT, Duration: 30 day, Stop date: 03/01/16 9:00:00 CDTNotes: (Same as: Toprol XL) May split tab, but do not crush. Alprazolam 2 MG 2 mg, 2 tab, No Longer The Oral Tablet Route: PO, Active 2015 [place] Drug form: TAB, BID, Dosing Weight 97.273, kg, PRN Anxiety, Start date: 02/01/16 8:23:00 CDT, Duration: 30 day, Stop date: 03/02/16 8:22:00 CDTNotes: With food or milk (Same as: Xanax) Albuterol 0.833 3 ml, Route: No Longer The MG/ML / NEB, Drug Active 2015 [place] Ipratropium Form: SOLN, [place] 0.167 Dosing Weight MG/ML Inhalant 97.273, kg, Solution PRN, PRN Respiratory Protocol, Start date: 02/01/16 8:22:00 CDT, Duration: 30 day, Stop date: 03/02/16 8:21:00 CDTNotes: (Same as: Duoneb) Zofran 4 mg, 2 mL, No Longer The Route: IVP, Active 2015 [place] Drug form: INJ, Q6H, Dosing Weight 97.273, kg, PRN Nausea, Start date: 02/01/16 1:24:00 CDT, Duration: 30 day, Stop date: 03/02/16 1:23:00 CDTNotes: (Same as: Zofran) MEDICATION WASTE Product Size: 4 mg Product Wasted: ___ mg Dilaudid 2 mg, 2 mL, No Longer The Route: IVP, Active 2015 [place] Drug form: INJ, Q4H, Dosing Weight 97.273, kg, PRN Pain Score 7-10, Start date: 02/01/16 1:23:00 CDT, Duration: 30 day, Stop date: 03/02/16 1:22:00 CDTNotes: Same as: Dilaudid Acetaminophen 300 1 tab, PO, No Longer The MG / Codeine BID, PRN pain, Active 2015 [place] Phosphate 30 MG # 28 tab, 0 Oral Tablet Refill(s) lisinopril 10 mg 10 mg=1 tab, Active The oral tablet PO, Daily, # 2015 [place] 30 tab, 0 Refill(s) metoprolol 100 mg=1 tab, Active The tartrate 100 mg PO, BID, # 60 2015 [place] oral tablet tab, 0 Refill(s) Centrum Adults 1 tab, PO, Active The oral tablet Daily, 0 2015 [place] Refill(s) doxazosin 1 mg 1 mg=1 tab, Active The oral tablet PO, Daily, # 2015 [place] 30 tab, 0 Refill(s) atorvastatin 40 mg 40 mg=1 tab, Active The oral tablet PO, Bedtime, # 2015 [place] 30 tab, 0 Refill(s) Anoro Ellipta 62.5 1 puff, Active The mcg-25 mcg INHALER, 2015 [place] inhalation powder Daily, # 1 ea, 3 Refill(s) Alprazolam 2 MG 2 mg=1 tab, Active The Oral Tablet PO, BID, PRN 2015 [place] Anxiety, # 20 tab, 0 Refill(s) Furosemide 20 MG 20 mg=1 tab, Active The Oral Tablet PO, Daily, # 2015 [place] 30 tab, 0 Refill(s) cilostazol 100 mg 100 mg=1 tab, Active The oral tablet PO, BID, # 60 2015 [place] tab, 0 Refill(s) Acetaminophen 650 mg, Route: Inactive The PO, Drug form: 2015 [place] TAB, ONCE, Dosing Weight 95, kg, Priority: STAT, Start date: 01/31/16 22:28:00 CDT, Stop date: 01/31/16 22:28:00 CDT Piperacillin / 3.375 gm, Inactive The tazobactam Route: IVPB, 2015 [place] ONCE, Dosing Weight 95, kg, Priority: STAT, Start date: 01/31/16 17:57:00 CDT, Stop date: 01/31/16 17:57:00 CDTNotes: (Same as: Zosyn) Dosing based on Piperacillin component MEDICATION WASTE Product Size: 3375 mg Product Wasted: ___ mg Vancomycin 1,000 mg, Inactive The Route: IVPB, 2015 [place] ONCE, Dosing Weight 95, kg, Priority: STAT, Start date: 01/31/16 17:57:00 CDT, Stop date: 01/31/16 17:57:00 CDT, TIME CRITICAL MEDICATIONNote s: TIME CRITICAL MEDICATION (Same As: Vancocin) Infusion rate 2001 mg: infuse over 2.5 hours MEDICATION WASTE Product Size: 1000 mg Product Wasted: ___ mg Sodium Chloride 1,000 mL, Inactive The 0.154 MEQ/ML 2,000 ml/hr, 2015 [place] Injectable Infuse Over: Solution 30 minutes, Route: IV, 1,000, Drug form: INJ, ONCE, Priority: STAT, Dosing Weight 95 kg, Start date: 01/31/16 17:04:00 CDT, Duration: 1 doses or times, Stop date: 01/31/16 17:04:00 CDT Acetaminophen 325 1 tab, Route: Inactive The MG / Hydrocodone PO, Drug Form: 2015 [place] Bitartrate 10 MG TAB, Dosing Oral Tablet [[place] Weight 95, kg, 10/325] ONCE, STAT, Start date: 01/31/16 16:57:00 CDT, Stop date: 01/31/16 16:57:00 CDTNotes: Do not exceed 4gm/day of acetaminophen. (Same as: [place] 325/10) Amlodipine 10 mg, PO, Active The Daily, 0 2015 [place] Refill(s) gabapentin 300 mg, PO, Active The BID, 0 2015 [place] Refill(s) atorvastatin 20 mg, 1 tab, Inactive The Route: PO, 2014 [place] Drug form: TAB, Bedtime, Dosing Weight 98.267, [...] 1 tab, Inactive The Route: PO, 2014 [place] Drug form: TAB, Daily, Start date: 02/16/15 9:00:00, Duration: 30 day, Stop date: 03/17/15 9:00:00Notes: (Same as: Prinivil, Zestril) metoprolol 25 mg, 1 tab, Inactive The tartrate Route: PO, 2014 [place] Drug form: TAB, Q12H, Dosing Weight 98.267, kg, Start date: 02/16/15 9:00:00, Duration: 30 day, Stop date: 03/17/15 21:00:00Notes: (Same as: Lopressor) Microzide 12.5 mg, 1 Inactive The tab, Route: 2014 [place] PO, Drug form: TAB, Daily, Start date: 02/16/15 9:00:00, Duration: 30 day, Stop date: 03/17/15 9:00:00Notes: (Same as: Hydrodiuril). Give with food. pneumococcal 0.5 mL, Route: Inactive The capsular IM, Drug Form: 2014 [place] polysaccharide INJ, Daily, type 1 vaccine / [...] The Oral Tablet tab, Route: Active 2014 [place] [Xanax] PO, Drug form: TAB, BID, Dosing Weight 98.267, kg, PRN Anxiety, Start date: 02/15/15 23:39:00, Duration: 30 day, Stop date: 03/17/15 23:38:00Notes: With food or milk (Same as: Xanax) Acetaminophen 325 1 tab, Route: No Longer The MG / Hydrocodone PO, Drug Form: Active 2014 [place] Bitartrate 5 MG TAB, Dosing Oral Tablet [[place] Weight 98.267, 5/325] kg, Q12H, PRN Pain 1-3/Temp > 100.4 F, Start date: 02/15/15 23:39:00, Duration: 30 day, Stop date: 03/17/15 23:38:00Notes: (Same as: [place] 325/5) Do not exceed 4gm/day of acetaminophen. Tessalon Perles 200 mg, 2 cap, No Longer The Route: PO, Active 2014 [place] Drug form: CAP, TID, Dosing Weight 13.636, kg, Start date: 02/15/15 20:00:00, Duration: 30 day, Stop date: 03/17/15 17:00:00Notes: (Same As: Tessalon Perles) "Do Not Crush" Acetaminophen 325 1 tab, PO, Active The MG / Hydrocodone Q12H, PRN 2014 [place] Bitartrate 5 MG Pain, # 30 Oral Tablet [[place] tab, 0 5/325] Refill(s) Alprazolam 0.25 MG 0.25 mg=1 tab, Active The Oral Tablet PO, BID, PRN 2014 [place] [Xanax] Anxiety, Stress, # 20 tab, 0 Refill(s) metoprolol 25 mg, PO, Active The tartrate BID, 0 2014 [place] Refill(s) NS 1,000 mL 1,000 mL, No Longer The Rate: 75 Active 2014 [place] ml/hr, Infuse over: 13.3 hr, Route: IV, Dosing Weight 13.636 kg, Total Volume: 1,000, Start date: 02/15/15 18:04:00, Duration: 30 day, Stop date: 03/17/15 18:03:00 Xopenex 0.63 mg, 3 mL, No Longer The Route: NEB, Active 2014 [place] Drug form: SOLN, PRN, Dosing Weight 13.636, kg, PRN Respiratory Protocol, Start date: 02/15/15 18:03:00, Duration: 30 day, Stop date: 03/17/15 18:02:00Notes: SEE RT DOCUMENTATION (Same as:Xopenex) Non-Formulary Acetaminophen 325 2 tab, Route: No Longer The MG / Hydrocodone PO, Drug Form: Active 2014 [place] Bitartrate 10 MG TAB, Dosing Oral Tablet [[place] Weight 13.636, 10/325] kg, Q4H, PRN Pain Score 4-6, Start date: 02/15/15 18:03:00, Duration: 30 day, Stop date: 03/17/15 18:02:00Notes: Do not exceed 4gm/day of acetaminophen. (Same as: [place] 325/10) Albuterol 0.833 3 ml, Route: No Longer The MG/ML / NEB, Drug Active 2014 [place] Ipratropium Form: SOLN, [place] 0.167 Dosing Weight MG/ML Inhalant 13.636, kg, Solution [DuoNeb] PRN, PRN Respiratory Protocol, Start date: 02/15/15 15:51:00, Duration: 30 day, Stop date: 03/17/15 15:50:00Notes: (Same as: Duoneb) Aspirin 324 mg, 4 tab, Inactive The Route: CHEW, 2014 [place] Drug form: CHEWTAB, ONCE, Dosing Weight 13.636, kg, Priority: STAT, Start date: 02/15/15 15:00:00, Stop date: 02/15/15 15:00:00Notes: Take with food. tramadol 100 mg=2 tab, Active The hydrochloride 50 PO, Q6H, PRN 2014 [place] MG Oral Tablet pain, X 3 day, [Ultram] # 20 tab, 0 Refill(s) Tylenol 650 mg, 2 tab, Inactive The Route: PO, 2014 [place] Drug form: TAB, ONCE, Dosing Weight 108.182, kg, Pediatric Dosing, Priority: STAT, Start date: 02/09/15 15:47:00, Stop date: 02/09/15 15:47:00Notes: Do not exceed 4 gm/day. (Same as: Tylenol) Sodium Chloride 1,000 mL, Inactive The 0.154 MEQ/ML 1,000 ml/hr, 2014 [place] Injectable Infuse Over: 1 Solution hr, Route: IV, 1,000, Drug form: INJ, ONCE, Priority: STAT, Dosing Weight 104.545 kg, Start date: 01/23/15 14:39:00, Duration: 1 doses or times, Stop date: 01/23/15 14:39:00 Saline Flush 0.9% 10 mL, Route: Inactive The IVP, Drug 2014 [place] Form: INJ, Dosing Weight 104.545, kg, PRN, PRN Line Flush, Start date: 01/23/15 14:39:00, Duration: 30 day, Stop date: 02/22/15 14:38:00Notes: preservative free. Allergies, Adverse Reactions, Alerts Substance Category Reaction Severity Reaction Status Date Comments Source type Reported morphine Assertion Drug Active The allergy [place] Immunizations Immunization Date Site Status Last Updated Comments Source Given pneumococcal Right completed Ashok The 23-valent 5 deltoid [place] vaccine Results Order Name Results Value Reference Date Interpretation Comments Source Range BLOOD BANK RBC product Product available 04/04 The RESULTS /2015 [place] (04/04/16 11:22 AM) BLOOD BANK ABO/Rh B POS 04/04 The RESULTS [place] BLOOD BANK Antibody Negative 04/04 The RESULTS Scr [place] (04/04/16 11:20 AM) URINE AND UA <=1.0 0.1 - 1.0 03/14 The STOOL Urobilinogen mg/dL /2016 [place] URINE AND UA RBC 1 /HPF 0 [...] mMol/L 0.5 - 2.2 03/14 The Lvl [place] CHEM PANEL Procalcitoni <0.05 0.00 - 03/14 The n Lvl ng/mL 0. [place] BLOOD BANK Antibody Negative 03/14 The RESULTS [place] (03/13/16 9:07 PM) BLOOD BANK ABO/Rh B POS 03/14 The RESULTS [place] CHEM PANEL eGFR 43 03/14 Result Comment: [...] is not recommended in the following populations: [place] [address] Individuals with unstable creatinine concentrations, including patients [...] 21 mg/dL 7 - 22 03/14 MH [place] CHEM PANEL Creatinine 1.79 mg/dL 0.50 - 03/14 MH The Lvl 1.40 [place] CHEM PANEL Alk Phos 95 unit/L 39 - 136 03/14 MH [place] CHEM PANEL Bili Total 0.3 mg/dL 0.2 - 1.3 03/14 MH [place] CHEM PANEL AST 39 unit/L 0 - 37 03/14 MH The [place] CHEM PANEL ALT 59 unit/L 0 - 65 03/14 MH The [place] CHEM PANEL Sodium Lvl 139 meq/L 135 - 145 03/14 MH The [place] CHEM PANEL Total 7.8 g/dL 6.4 - 8.4 03/14 MH The Protein [place] CHEM PANEL Albumin Lvl 2.5 g/dL 3.5 - 5.0 03/14 MH The [place] CHEM PANEL Glucose Lvl 120 mg/dL 70 - 99 03/14 MH The [place] CHEM PANEL Chloride Lvl 106 meq/L 95 - 109 03/14 MH The [place] CHEM PANEL CO2 21 meq/L 24 - 32 03/14 MH [place] CHEM PANEL Calcium Lvl 10.1 mg/dL 8.5 - 10.5 03/14 MH The [place] CHEM PANEL Potassium 3.3 meq/L 3.5 - 5.1 03/14 MH The Lvl [place] CHEM PANEL A/G Ratio 0.5 0.7 - 1.6 03/14 MH The [place] CHEM PANEL Globulin 5.3 g/dL 2.7 - 4.2 03/14 The [place] CHEM PANEL B/C Ratio 12 6 - 25 03/14 The [place] CHEM PANEL AGAP 15.3 meq/L 10.0 - 03/14 MH The 20.0 [place] HEMATOLOGY MPV 7.4 fL 7.4 - 10.4 03/14 MH The [place] HEMATOLOGY WBC 7.3 K/CMM 3.7 - 10.4 03/14 The [place] HEMATOLOGY MCV 88.5 fL 80.0 - 03/14 MH The 94.0 [place] HEMATOLOGY RBC 3.00 M/CMM 4.70 - 03/14 MH The 6. [place] HEMATOLOGY Hct 26.5 % 42.0 - 03/14 MH The 54.0 [place] HEMATOLOGY Hgb 8.8 g/dL 14.0 - 03/14 MH The 18.0 [place] HEMATOLOGY MCHC 33.1 g/dL 32.0 - 03/14 MH The 36.0 [place] HEMATOLOGY MCH 29.3 pg 27.0 - 03/14 MH The 31.0 [place] HEMATOLOGY Platelet 241 K/CMM 133 - 450 03/14 MH The [place] HEMATOLOGY RDW 15.5 % 11.5 - 03/14 MH The 14.5 [place] HEMATOLOGY Basophils # 0.1 K/CMM 0.0 - 0.2 03/14 MH The [place] HEMATOLOGY Lymphocytes 14.3 % 20.0 - 03/14 MH The 40.0 [place] HEMATOLOGY Eosinophils 1.9 % 0.0 - 4.0 03/14 MH The [place] HEMATOLOGY Segs 77.1 % 45.0 - 03/14 MH The 75.0 [place] HEMATOLOGY Monocytes 5.3 % 2.0 - 12.0 03/14 MH The [place] HEMATOLOGY Basophils 1.4 % 0.0 - 1.0 03/14 MH The [place] HEMATOLOGY Segs-Bands # 5.6 K/CMM 1.5 - 8.1 03/14 MH The [place] HEMATOLOGY Lymphocytes 1.0 K/CMM 1.0 - 5.5 03/14 MH The # [place] HEMATOLOGY Monocytes # 0.4 K/CMM 0.0 - 0.8 03/14 [place] HEMATOLOGY Eosinophils 0.1 K/CMM 0.0 - 0.5 03/14 The [place] Ext Lower Ext Lower Study: Ext Lower Venous Doppler Bilat US 03/13/2016 11: 06 PM CDT 03/13 - [facility] Venous Venous /2015 [facility] Doppler Doppler Ordering Physician: Blanche Diaz MD [...] no evidence for deep venous thrombosis. SL: [id number] Chest Chest 1view Study: Chest 1view DX 03/13/2016 11:18 PM CDT 03/13 [facility] 1view DX DX [facility] Ordering Physician: Blanche Diaz MD Clinical Indication: [...] no pneumothorax. No acute cardiopulmonary disease. SL: [id number] ANEMIA UIBC 174 ug/dl 110 - 370 02/15 The [place] ANEMIA TIBC 196 ug/dl 228 - 428 02/15 The [place] ANEMIA Iron 22 ug/dl 45 - 160 02/15 The [place] ANEMIA % [place] Fe 11 % 12 - 57 02/15 The [place] Chest Chest 1view Clinical Indication: Fever; 02/14 - The 1view DX DX /2015 - [place] Comparison: 02/15/2015 Read by: Akil Castaneda MD [...] radiographic evidence of acute cardiopulmonary disease. SL: [id number] CHEM PANEL eGFR 57 02/14 Result Comment: [...] is not recommended in the following populations: [place] 3m2 Individuals with unstable creatinine concentrations, including [...] 14.7 meq/L 10.0 - 02/14 The . [place] CHEM PANEL Calcium Lvl 8.7 mg/dL 8.5 - 10.5 02/14 [place] CHEM PANEL CO2 24 meq/L 24 - 32 02/14 [place] CHEM PANEL Chloride Lvl 99 meq/L 95 - 109 02/14 [place] CHEM PANEL Potassium 3.7 meq/L 3.5 - 5.1 02/14 The Lvl /2015 [place] CHEM PANEL BUN 16 mg/dL 7 - 22 02/14 The [place] CHEM PANEL Glucose Lvl 128 mg/dL 70 - 99 02/14 The [place] CHEM PANEL Sodium Lvl 134 meq/L 135 - 145 02/14 The [place] CHEM PANEL Creatinine 1.42 mg/dL 0.50 - 02/14 The Lvl 1.40 [place] CHEM PANEL eGFR 51 02/13 Result Comment: [...] not recommended in the following populations: [address] Individuals with unstable creatinine concentrations, including [...] mg/dL 0.2 - 1.3 02/13 Result Comment: [place] reviewed all results 02/14/2016 06:35 [facility] CHEM PANEL ALT 25 unit/L 0 - 65 02/13 The [place] CHEM PANEL AST 15 unit/L 0 - 37 02/13 The [place] CHEM PANEL Alk Phos 62 unit/L 39 - 136 02/13 The [place] CHEM PANEL Globulin 4.8 g/dL 2.7 - 4.2 02/13 The [place] CHEM PANEL A/G Ratio 0.5 0.7 - 1.6 02/13 The [place] CHEM PANEL Calcium Lvl 9.0 mg/dL 8.5 - 10.5 02/13 The [place] CHEM PANEL Glucose Lvl 109 mg/dL 70 - 99 02/13 The [place] CHEM PANEL CO2 24 meq/L 24 - 32 02/13 The [place] CHEM PANEL Chloride Lvl 101 meq/L 95 - 109 02/13 The [place] CHEM PANEL BUN 17 mg/dL 7 - 22 02/13 The [place] CHEM PANEL Potassium 4.1 meq/L 3.5 - 5.1 02/13 The Lvl /2015 [place] CHEM PANEL AGAP 14.1 meq/L 10.0 - 02/13 The 20.0 [place] CHEM PANEL Albumin Lvl 2.3 g/dL 3.5 - 5.0 02/13 The [place] CHEM PANEL Total 7.1 g/dL 6.4 - 8.4 02/13 The Protein /2015 [place] CHEM PANEL Creatinine 1.55 mg/dL 0.50 - 02/13 The Lvl 1.40 [place] CHEM PANEL Sodium Lvl 135 meq/L 135 - 145 02/13 The [place] CHEM PANEL B/C Ratio 11 6 - 25 02/13 The [place] HEMATOLOGY MPV 7.7 fL 7.4 - 10.4 02/13 The [place] HEMATOLOGY Hct 25.4 % 42.0 - 02/13 The 54.0 [place] HEMATOLOGY MCH 32.7 pg 27.0 - 02/13 The 31.0 [place] HEMATOLOGY MCV 96.6 fL 80.0 - 02/13 The 94.0 [place] HEMATOLOGY Platelet 296 K/CMM 133 - 450 02/13 The [place] HEMATOLOGY RDW 14.7 % 11.5 - 02/13 The 14.5 [place] HEMATOLOGY MCHC 33.8 g/dL 32.0 - 02/13 The 36.0 [place] HEMATOLOGY WBC 8.4 K/CMM 3.7 - 10.4 02/13 The [place] HEMATOLOGY Hgb 8.6 g/dL 14.0 - 02/13 The 18.0 [place] HEMATOLOGY RBC 2.63 M/CMM 4.70 - 02/13 The 6.10 [place] HEMATOLOGY Lymphocytes 1.5 K/CMM 1.0 - 5.5 02/13 The # /2015 [place] HEMATOLOGY Eosinophils 0.2 K/CMM 0.0 - 0.5 02/13 The # [place] HEMATOLOGY Monocytes # 0.8 K/CMM 0.0 - 0.8 02/13 MH The [place] HEMATOLOGY Basophils # 0.1 K/CMM 0.0 - 0.2 02/13 The [place] HEMATOLOGY Monocytes 9.9 % 2.0 - 12.0 02/13 The [place] HEMATOLOGY Lymphocytes 17.2 % 20.0 - 02/13 MH The 40.0 [place] HEMATOLOGY Segs 69.8 % 45.0 - 02/13 MH The 75.0 [place] HEMATOLOGY Eosinophils 2.2 % 0.0 - 4.0 02/13 The [place] HEMATOLOGY Segs-Bands # 5.9 K/CMM 1.5 - 8.1 02/13 [place] HEMATOLOGY Basophils 0.9 % 0.0 - 1.0 02/13 The [place] Foot Foot series Clinical Indication: Pain and swelling. Post surgery. The series DX DX - [place] Comparison: 01/31/2016. Read by: Samson Ramirez MD [...] post transmetatarsal amputation, as noted above. SL: [id number] CHEM PANEL Total 6.3 g/dL 6.4 - 8.4 02/12 The Protein [place] CHEM PANEL A/G Ratio 0.7 0.7 - 1.6 02/12 [place] CHEM PANEL B/C Ratio 12 6 - 25 02/12 [place] CHEM PANEL Globulin 3.8 g/dL 2.7 - 4.2 02/12 [place] CHEM PANEL AST 12 unit/L 0 - 37 02/12 [place] CHEM PANEL Alk Phos 61 unit/L 39 - 136 02/12 The [place] CHEM PANEL Albumin Lvl 2.5 g/dL 3.5 - 5.0 02/12 [place] CHEM PANEL ALT 26 unit/L 0 - 65 02/12 [place] CHEM PANEL Bili Total 0.4 mg/dL 0.2 - 1.3 02/12 [place] CHEM PANEL AGAP 13.5 meq/L 10.0 - 02/12 The 20.0 [place] CHEM PANEL eGFR 57 02/12 Result Comment: [...] not recommended in the following populations: [address] Individuals with unstable creatinine concentrations, including [...] CO2 27 meq/L 24 - 32 02/12 [place] CHEM PANEL Calcium Lvl 8.7 mg/dL 8.5 - 10.5 02/12 [place] CHEM PANEL Chloride Lvl 100 meq/L 95 - 109 02/12 [place] CHEM PANEL Potassium 4.5 meq/L 3.5 - 5.1 02/12 The Lvl [place] CHEM PANEL Creatinine 1.42 mg/dL 0.50 - 02/12 MH The Lvl 1.40 [place] CHEM PANEL Sodium Lvl 136 meq/L 135 - 145 02/12 The [place] CHEM PANEL Glucose Lvl 105 mg/dL 70 - 99 02/12 The [place] CHEM PANEL BUN 17 mg/dL 7 - 22 02/12 [place] CHEM PANEL Phosphorus 4.9 mg/dL 2.5 - 4.5 02/11 The /2015 [place] CHEM PANEL Magnesium 1.8 mg/dL 1.8 - 2.4 02/11 MH The Lvl /2015 [place] HEMATOLOGY Segs 70.5 % 45.0 - 02/11 MH The 75.0 [place] HEMATOLOGY Lymphocytes 18.0 % 20.0 - 02/11 MH The 40.0 [place] HEMATOLOGY Monocytes 9.7 % 2.0 - 12.0 02/11 The [place] HEMATOLOGY Segs-Bands # 6.4 K/CMM 1.5 - 8.1 02/11 The [place] HEMATOLOGY Lymphocytes 1.6 K/CMM 1.0 - 5.5 02/11 MH The [place] HEMATOLOGY Basophils 0.5 % 0.0 - 1.0 02/11 MH The [place] HEMATOLOGY Eosinophils 1.3 % 0.0 - 4.0 02/11 MH The [place] HEMATOLOGY Monocytes # 0.9 K/CMM 0.0 - 0.8 02/11 The [place] HEMATOLOGY Eosinophils 0.1 K/CMM 0.0 - 0.5 02/11 MH The # [place] HEMATOLOGY Platelet 307 K/CMM 133 - 450 02/11 The [place] HEMATOLOGY MPV 6.9 fL 7.4 - 10.4 02/11 The [place] HEMATOLOGY MCHC 33.9 g/dL 32.0 - 02/11 The 36.0 [place] HEMATOLOGY RDW 15.1 % 11.5 - 02/11 MH The 14.5 [place] HEMATOLOGY RBC 2.69 M/CMM 4.70 - 02/11 The 6.10 [place] HEMATOLOGY MCV 96.5 fL 80.0 - 02/11 MH The 94.0 [place] HEMATOLOGY WBC 9.1 K/CMM 3.7 - 10.4 02/11 The [place] HEMATOLOGY Hgb 8.8 g/dL 14.0 - 02/11 MH The 18.0 [place] HEMATOLOGY Hct 26.0 % 42.0 - 02/11 MH The 54.0 [place] HEMATOLOGY MCH 32.7 pg 27.0 - 02/11 MH The 31.0 [place] HEMATOLOGY Segs-Bands # 7.7 K/CMM 1.5 - 8.1 02/11 The [place] HEMATOLOGY Basophils 1.5 % 0.0 - 1.0 02/11 The [place] HEMATOLOGY Basophils # 0.2 K/CMM 0.0 - 0.2 02/11 MH The [place] HEMATOLOGY Eosinophils 0.2 K/CMM 0.0 - 0.5 02/11 MH The # /2015 [place] HEMATOLOGY Monocytes # 1.2 K/CMM 0.0 - 0.8 02/11 The [place] HEMATOLOGY Segs 69.4 % 45.0 - 02/11 MH The 75.0 [place] HEMATOLOGY Monocytes 10.5 % 2.0 - 12.0 02/11 The [place] HEMATOLOGY Eosinophils 1.6 % 0.0 - 4.0 02/11 The [place] HEMATOLOGY Lymphocytes 1.9 K/CMM 1.0 - 5.5 02/11 MH The # /2015 [place] HEMATOLOGY Lymphocytes 17.0 % 20.0 - 02/11 The 40.0 [place] HEMATOLOGY Hct 28.9 % 42.0 - 02/11 The 54.0 [place] HEMATOLOGY MCHC 33.6 g/dL 32.0 - 02/11 The 36.0 [place] HEMATOLOGY RDW 14.6 % 11.5 - 02/11 The 14.5 [place] HEMATOLOGY MCV 96.6 fL 80.0 - 02/11 The 94.0 [place] HEMATOLOGY MCH 32.4 pg 27.0 - 02/11 The 31.0 [place] HEMATOLOGY Hgb 9.7 g/dL 14.0 - 02/11 The 18.0 [place] HEMATOLOGY WBC 11.1 K/CMM 3.7 - 10.4 02/11 The [place] HEMATOLOGY RBC 2.99 M/CMM 4.70 - 02/11 The 6.10 [place] HEMATOLOGY Platelet 360 K/CMM 133 - 450 02/11 MH The [place] HEMATOLOGY MPV 7.4 fL 7.4 - 10.4 02/11 The [place] HEMATOLOGY Basophils # 0.1 K/CMM 0.0 - 0.2 02/09 The [place] HEMATOLOGY Sed Rate null 0 - 15 02/08 The [place] BLOOD BANK Antibody Negative 02/07 The RESULTS Scrn [place] (02/08/16 5:38 AM) BLOOD BANK ABO/Rh B POS 02/07 The RESULTS [place] CHEM PANEL Procalcitoni 0.11 ng/mL 0.00 - 02/07 The n Lvl 0.10 [place] URINE AND UA Sq Epi None Seen 02/04 The STOOL [place] URINE AND UA <=1.0 0.1 - 1.0 02/04 The STOOL Urobilinogen mg/dL [place] URINE AND UA Leuk Est Negative Negative 02/04 The STOOL [place] (02/05/16 12:36 AM) URINE AND UA Bacteria [...] UA Spec Grav 1.006 <=1.030 02/04 The [place] Abdominal Abdominal Clinical Indication: Gangrene; right foot gangrene. - MH The Aorta with Aorta with /2015 - [place] runoff CTA runoff CTA Comparison: None Read [...] 5th MCP is concerning for osteomyelitis. SL: [id number] URINE AND UA Sq Epi None Seen 01/31 The [place] URINE AND UA <=1.0 0.1 - 1.0 01/31 The STOOL Urobilinogen mg/dL [place] URINE AND UA Blood Negative Negative 01/31 The [place] (02/01/16 4:31 PM) URINE AND UA Nitrite Negative Negative 01/31 The [place] (02/01/16 4:31 PM) URINE AND UA Leuk Est Negative Negative 01/31 The [place] (02/01/16 4:31 PM) URINE AND UA WBC 1 /HPF 0 - 5 01/31 The [place] URINE AND UA Hyal Cast 3 /LPF 0 - 2 01/31 The [place] URINE AND UA pH 5.5 5.0 - 8.0 01/31 The [place] URINE AND UA Glucose Negative Negative 01/31 The STOOL mg/dL mg/dL [place] URINE AND UA Ketones Negative Negative 01/31 The STOOL mg/dL mg/dL [place] URINE AND UA Bili Negative Negative 01/31 The [place] *NA* (02/01/16 4:31 PM) URINE AND UA Protein Negative Negative 01/31 The STOOL mg/dL mg/dL [place] URINE AND UA Color Yellow Yellow 01/31 The [place] *NA* (02/01/16 4:31 PM) URINE AND UA Turbidity Clear Clear 01/31 The [place] (02/01/16 4:31 PM) URINE AND UA Spec Grav 1.007 <=1.030 01/31 MH The STOOL [place] URINE CHEM U Chloride 41 meq/L 01/31 The [place] URINE CHEM U Creatinine 70.40 01/31 The mg/dL [place] URINE CHEM U Sodium 38 meq/L 01/31 The [place] Retroperit Retroperiton Clinical Indication: Renal insufficiency 01/31 - The [place] eal limited /2015 - [facility] [place] Comparison: None Read by: Ky Woods [...] with hematuria or urinary tract infection. SL: [id number] CARDIAC Troponin-I null 0.00 - 01/30 The ENZYMES 0.40 /2015 [place] CHEM PANEL Procalcitoni 0.13 ng/mL 0.00 - 01/30 The n Lvl 0.10 [place] CHEM PANEL Lactic Acid 1.7 mMol/L 0.5 - 2.2 01/30 The Lvl /2015 [place] CHEM PANEL Bili Total 0.4 mg/dL 0.2 - 1.3 01/30 The [place] CHEM PANEL Total 7.7 g/dL 6.4 - 8.4 01/30 The Protein [place] CHEM PANEL AST 19 unit/L 0 - 37 01/30 The [place] CHEM PANEL ALT 23 unit/L 0 - 65 01/30 The [place] CHEM PANEL Alk Phos 58 unit/L 39 - 136 01/30 The [place] CHEM PANEL Albumin Lvl 2.8 g/dL 3.5 - 5.0 01/30 [place] CHEM PANEL A/G Ratio 0.6 0.7 - 1.6 01/30 [place] CHEM PANEL Globulin 4.9 g/dL 2.7 - 4.2 01/30 [place] CHEM PANEL B/C Ratio 15 6 - 25 01/30 The [place] HEMATOLOGY PTT 42.4 s 22.9 - 01/30 The 35.8 [place] HEMATOLOGY PT 14.6 s 12.0 - 01/30 The 14.7 [place] HEMATOLOGY INR 1.11 0.85 - 01/30 The 1.17 [place] Ext Lower Ext Lower Clinical Indication: Right leg claudication and leg ulcer. 01/30 - The Arterial Arterial /2015 [place] Doppler Doppler Comparison: None unilat US unilat US Read by: Samson Ramirez MD Dictated Date/time: 01/31/16 20:20 Electronically Signed by: Samson Ramirez MD 01/31/16 20:25 FINAL REPORT TECHNIQUE: Sonographic evaluation of the right lower extremity arteries was performed with grayscale and color Doppler imaging with standard technique. FINDINGS: RIGHT: FIXED ASSETS ACCOUNTANT: Monophasic waveforms with severely decreased peak systolic velocities. SFA: Monophasic waveforms. Spectral broadening. Mildly decreased peak systolic velocities. This may be related to collateral flow. POP: Monophasic waveforms. Spectral broadening with moderately decreased peak systolic velocities. [employer] RECORD CLERK: Monophasic waveforms. Spectral broadening with severely decreased [...] or conventional angiography for complete assessment. SL: [id number] Foot Foot series Clinical Indication: Pain and swelling , status post amputation 4 years ago 01/30 - The series DX DX - [place] Comparison: None Read by: Ky Woods MD [...] the right foot may be beneficial. SL: [id number] LIPIDS VLDL 77 02/16 MH The [place] LIPIDS HDL 29 mg/dL >=61 mg/dL 02/16 The [place] LIPIDS Chol 222 mg/dL <=199 02/16 MH The mg/dL [place] LIPIDS CHD Risk 7.66 4.00 - 02/16 The 7.30 [place] LIPIDS Trig 384 mg/dL <=149 02/16 MH The mg/dL [place] LIPIDS LDL 116 mg/dL <=99 mg/dL 02/16 The (Calculated) [place] CARDIAC CK MB Index 0.8 0.0 - 2.5 02/16 The ENZYMES [place] CARDIAC CK MB 0.6 ng/mL 0.5 - 3.6 02/16 The [place] CARDIAC Troponin-I null 0.00 - 02/16 The ENZYMES 0.40 [place] CARDIAC Total CK 76 unit/L - 02/16 The ENZYMES [place] CARDIAC Troponin-I null 0.00 - 02/16 The ENZYMES 0.40 [place] CARDIAC Total CK 89 unit/L - 02/16 The ENZYMES [place] CARDIAC CK MB Index 1.0 0.0 - 2.5 02/16 The ENZYMES [place] CARDIAC CK MB 0.9 ng/mL 0.5 - 3.6 02/16 The ENZYMES [place] THYROID TSH 2.000 0.360 - 02/16 The PANEL uIU/mL 3.740 [place] CARDIAC CK MB Index 0.8 0.0 - 2.5 02/15 MH The ENZYMES /2014 [place] CARDIAC Troponin-I null 0.00 - 02/15 MH The ENZYMES 0.40 /2014 [place] CARDIAC Total CK 111 unit/L 12 - 191 02/15 MH The ENZYMES [place] CARDIAC CK MB 0.9 ng/mL 0.5 - 3.6 02/15 MH The ENZYMES [place] CHEM PANEL eGFR 70 02/15 Result Comment: [...] not recommended in the following populations: [address] Individuals with unstable creatinine concentrations, including [...] unit/L 39 - 136 02/15 MH The [place] CHEM PANEL AST 23 unit/L 0 - 37 02/15 MH The [place] CHEM PANEL ALT 27 unit/L 0 - 65 02/15 MH The [place] CHEM PANEL Albumin Lvl 3.4 g/dL 3.5 - 5.0 02/15 The [place] CHEM PANEL Total 7.7 g/dL 6.4 - 8.4 02/15 The Protein [place] CHEM PANEL A/G Ratio 0.8 0.7 - 1.6 02/15 MH The [place] CHEM PANEL Globulin 4.3 g/dL 2.0 - 4.0 02/15 MH The [place] CHEM PANEL B/C Ratio 6 6 - 25 02/15 MH The [place] CHEM PANEL AGAP 11.8 meq/L 10.0 - 02/15 MH The 20.0 [place] CHEM PANEL Bili Total 0.4 mg/dL 0.2 - 1.3 02/15 The [place] CHEM PANEL Calcium Lvl 9.2 mg/dL 8.5 - 10.5 02/15 The [place] CHEM PANEL CO2 25 meq/L 24 - 32 02/15 The [place] CHEM PANEL Glucose Lvl 88 mg/dL 70 - 99 02/15 The [place] CHEM PANEL Chloride Lvl 106 meq/L 95 - 109 02/15 The [place] CHEM PANEL Potassium 4.8 meq/L 3.5 - 5.1 02/15 The [place] CHEM PANEL Sodium Lvl 138 meq/L 135 - 145 02/15 The [place] CHEM PANEL Creatinine 1.2 mg/dL 0.5 - 1.4 02/15 The [place] CHEM PANEL BUN 7 mg/dL 7 - 22 02/15 The [place] CHEM PANEL Magnesium 2.0 mg/dL 1.8 - 2.4 02/15 The l [place] HEMATOLOGY Eosinophils 0.4 K/CMM 0.0 - 0.5 02/15 The # [place] HEMATOLOGY Basophils # 0.0 K/CMM 0.0 - 0.2 02/15 The [place] HEMATOLOGY Segs-Bands # 4.6 K/CMM 1.5 - 8.1 02/15 The [place] HEMATOLOGY Monocytes # 0.8 K/CMM 0.0 - 0.8 02/15 The [place] HEMATOLOGY Monocytes 10.3 % 2.0 - 12.0 02/15 The [place] HEMATOLOGY Eosinophils 5.0 % 0.0 - 4.0 02/15 The [place] HEMATOLOGY Basophils 0.4 % 0.0 - 1.0 02/15 The [place] HEMATOLOGY Lymphocytes 25.7 % 20.0 - 02/15 MH The 40.0 [place] HEMATOLOGY Lymphocytes 2.0 K/CMM 1.0 - 5.5 02/15 The [place] HEMATOLOGY Segs 58.6 % 45.0 - 02/15 MH The 75.0 [place] HEMATOLOGY INR 1.00 0.85 - 02/15 MH The 1.17 [place] HEMATOLOGY PT 13.5 s 12.0 - 02/15 MH The 14.7 [place] HEMATOLOGY PTT 33.7 s 22.9 - 02/15 The 35.8 /2014 [place] HEMATOLOGY Platelet 170 K/CMM 133 - 450 02/15 The [place] HEMATOLOGY WBC 7.8 K/CMM 3.7 - 10.4 02/15 The [place] HEMATOLOGY MCH 33.3 pg 27.0 - 02/15 The 31.0 /2014 [place] HEMATOLOGY RBC 4.62 M/CMM 4.70 - 02/15 The 6.10 [place] HEMATOLOGY MCV 97.4 fL 80.0 - 02/15 The 94.0 [place] HEMATOLOGY Hgb 15.4 g/dL 14.0 - 02/15 The 18.0 /2014 [place] HEMATOLOGY Hct 45.0 % 42.0 - 02/15 The 54.0 [place] HEMATOLOGY MCHC 34.2 g/dL 32.0 - 02/15 The 36.0 [place] HEMATOLOGY MPV 7.0 fL 7.4 - 10.4 02/15 The [place] HEMATOLOGY RDW 16.0 % 11.5 - 02/15 The 14.5 [place] Chest 2 Chest 2 NAME: REMEDIOS SANCHEZ 02/15 - The views DX views DX [place] : 1965 SEX: M Ordering Physician: Jaciel [...] 02/09 - The complete complete DX /2014 [facility] DX : 1965 SEX: M Ordering Physician: [...] Cocaine Negative Negative 01/23 The SCREEN Scr [place] *NA* (01/23/15 3:10 PM) DRUG U Opiate Scr Negative Negative 01/23 The [place] *NA* (01/23/15 3:10 PM) DRUG U Cannab Scr Negative Negative 01/23 The [place] *NA* (01/23/15 3:10 PM) DRUG U Phencyc Negative Negative 01/23 The SCREEN [place] *NA* (01/23/15 3:10 PM) DRUG UDS Note See Note 01/23 The [place] (01/23/15 3:10 PM) DRUG U Shoshana Scr Negative Negative 01/23 The [place] *NA* (01/23/15 3:10 PM) DRUG U Benzodia Positive Negative 01/23 The SCREEN [place] *ABN* (01/23/15 3:10 PM) DRUG U Amph Scr Negative Negative 01/23 The [place] *NA* (01/23/15 3:10 PM) URINE AND UA <=1.0 0.1 - 1.0 01/23 The STOOL Urobilinogen mg/dL /2014 [place] URINE AND UA Glucose Negative Negative 01/23 The STOOL mg/dL mg/dL [place] URINE AND UA Sq Epi Few /LPF Few /LPF 01/23 The STOOL /2014 [place] URINE AND UA Leuk Est Negative Negative 01/23 The STOOL /2014 [place] (01/23/15 3:10 PM) URINE AND UA Nitrite Negative Negative 01/23 MH The STOOL /2014 [place] (01/23/15 3:10 PM) URINE AND UA Bacteria [...] AND UA Blood Moderate Negative 01/23 The [place] *ABN* (01/23/15 3:10 PM) URINE AND UA Bili Negative Negative 01/23 The [place] *NA* (01/23/15 3:10 PM) URINE AND UA Ketones Trace Negative 01/23 The STOOL mg/dL mg/dL lands URINE AND UA Sperm Occasional None Seen 01/23 The STOOL /HPF /HPF [place] CARDIAC CK MB Index 0.7 0.0 - 2.5 01/23 The ENZYMES [place] CARDIAC Troponin-I null 0.00 - 01/23 The ENZYMES 0.40 [place] CARDIAC Total CK 170 unit/L 12 - 191 01/23 The ENZYMES lands CARDIAC CK MB 1.2 ng/mL 0.5 - 3.6 01/23 The ENZYMES [place] CHEM PANEL eGFR 54 01/23 Result Comment: [...] not recommended in the following populations: [address] Individuals with unstable creatinine concentrations, including [...] A/G Ratio 1.0 0.7 - 1.6 01/23 [place] CHEM PANEL AST 23 unit/L 0 - 37 01/23 The [place] CHEM PANEL Albumin Lvl 4.3 g/dL 3.5 - 5.0 01/23 [place] CHEM PANEL ALT 39 unit/L 0 - 65 01/23 The [place] CHEM PANEL Total 8.8 g/dL 6.4 - 8.4 01/23 The Protein [place] CHEM PANEL Calcium Lvl 9.3 mg/dL 8.5 - 10.5 01/23 The [place] CHEM PANEL AGAP 20.5 meq/L 10.0 - 01/23 MH The 20.0 [place] CHEM PANEL Globulin 4.5 g/dL 2.0 - 4.0 01/23 The [place] CHEM PANEL B/C Ratio 10 6 - 25 01/23 The [place] CHEM PANEL Bili Total 0.5 mg/dL 0.2 - 1.3 01/23 The [place] CHEM PANEL Alk Phos 88 unit/L 39 - 136 01/23 The [place] CHEM PANEL Potassium 4.5 meq/L 3.5 - 5.1 01/23 MH The Lvl [place] CHEM PANEL Sodium Lvl 139 meq/L 135 - 145 01/23 The [place] CHEM PANEL CO2 17 meq/L 24 - 32 01/23 The [place] CHEM PANEL Chloride Lvl 106 meq/L 95 - 109 01/23 The [place] CHEM PANEL Glucose Lvl 114 mg/dL 70 - 99 01/23 The [place] CHEM PANEL Creatinine 1.5 mg/dL 0.5 - 1.4 01/23 The Lvl [place] CHEM PANEL BUN 15 mg/dL 7 - 22 01/23 The [place] HEMATOLOGY Segs 89.7 % 45.0 - 01/23 The 75.0 [place] HEMATOLOGY Segs-Bands # 11.6 K/CMM 1.5 - 8.1 01/23 The [place] HEMATOLOGY Lymphocytes 0.8 K/CMM 1.0 - 5.5 01/23 The [place] HEMATOLOGY Lymphocytes 6.5 % 20.0 - 01/23 The 40.0 [place] HEMATOLOGY Monocytes 3.2 % 2.0 - 12.0 01/23 The [place] HEMATOLOGY Monocytes # 0.4 K/CMM 0.0 - 0.8 01/23 The [place] HEMATOLOGY Eosinophils 0.0 K/CMM 0.0 - 0.5 01/23 The [place] HEMATOLOGY Basophils # 0.1 K/CMM 0.0 - 0.2 01/23 The [place] HEMATOLOGY Eosinophils 0.2 % 0.0 - 4.0 01/23 The [place] HEMATOLOGY Basophils 0.4 % 0.0 - 1.0 01/23 The [place] HEMATOLOGY PT 14.2 s 12.0 - 01/23 The . [place] HEMATOLOGY INR 1.07 0.85 - 01/23 The 1.17 [place] HEMATOLOGY PTT 31.2 s 22.9 - 01/23 The 35.8 [place] HEMATOLOGY MPV 8.3 fL 7.4 - 10.4 01/23 The [place] HEMATOLOGY MCHC 32.8 g/dL 32.0 - 01/23 The 36.0 [place] HEMATOLOGY RDW 17.0 % 11.5 - 01/23 The 14. [place] HEMATOLOGY Platelet 202 K/CMM 133 - 450 01/23 The [place] HEMATOLOGY Hct 51.7 % 42.0 - 01/23 The 54.0 [place] HEMATOLOGY MCV 97.9 fL 80.0 - 01/23 MH The 94.0 [place] HEMATOLOGY MCH 32.1 pg 27.0 - 01/23 The 31.0 [place] HEMATOLOGY Hgb 17.0 g/dL 14.0 - 01/23 The 18.0 [place] HEMATOLOGY WBC 12.9 K/CMM 3.7 - 10.4 01/23 [place] HEMATOLOGY RBC 5.28 M/CMM 4.70 - 01/23 The 6.10 [place] Brain wo Brain wo Name: REMEDIOS SANCHEZ 01/23 - The contrast contrast CT /2014 - [place] CT : 1965 Read by: Tayla Thorne [...] not recommended in the following populations: [address] Individuals with unstable creatinine concentrations, including [...] Total 0.3 mg/dL 0.2 - 1.3 11/20 [place] CHEM PANEL AST 18 unit/L 0 - 37 11/20 [place] CHEM PANEL Alk Phos 88 unit/L 39 - 136 11/20 [place] CHEM PANEL ALT 36 unit/L 0 - 65 11/20 The [place] CHEM PANEL Albumin Lvl 4.0 g/dL 3.5 - 5.0 11/20 [place] CHEM PANEL Total 8.8 g/dL 6.4 - 8.4 11/20 The Protein [place] CHEM PANEL CO2 22 meq/L 24 - 32 11/20 [place] CHEM PANEL Calcium Lvl 9.5 mg/dL 8.5 - 10.5 11/20 [place] CHEM PANEL Chloride Lvl 103 meq/L 95 - 109 11/20 [place] CHEM PANEL Sodium Lvl 135 meq/L 135 - 145 11/20 [place] CHEM PANEL Potassium 4.2 meq/L 3.5 - 5.1 11/20 The [place] CHEM PANEL Creatinine 1.2 mg/dL 0.5 - 1.4 11/20 The Lvl [place] CHEM PANEL Glucose Lvl 110 mg/dL 70 - 99 11/20 4Interpretive Data: Adult reference range values reflect the clinical guidelines MH of the [place] [employer]. [place] CHEM PANEL BUN 7 mg/dL 7 - 22 11/20 The [place] CHEM PANEL Globulin 4.8 g/dL 2.0 - 4.0 11/20 The [place] CHEM PANEL A/G Ratio 0.8 0.7 - 1.6 11/20 The [place] CHEM PANEL B/C Ratio 6 6 - 25 11/20 The [place] CHEM PANEL AGAP 14.2 meq/L 10.0 - 11/20 The 20.0 [place] HEMATOLOGY Eosinophils 3.2 % 0.0 - 4.0 11/20 The [place] HEMATOLOGY Lymphocytes 16.7 % 20.0 - 11/20 The 40.0 [place] HEMATOLOGY Monocytes 6.2 % 2.0 - 12.0 11/20 The [place] HEMATOLOGY Segs 73.3 % 45.0 - 11/20 The 75.0 [place] HEMATOLOGY Basophils 0.6 % 0.0 - 1.0 11/20 The [place] HEMATOLOGY Basophils # 0.1 K/CMM 0.0 - 0.2 11/20 The [place] HEMATOLOGY Eosinophils 0.3 K/CMM 0.0 - 0.5 11/20 The # [place] HEMATOLOGY Monocytes # 0.6 K/CMM 0.0 - 0.8 11/20 The [place] HEMATOLOGY Lymphocytes 1.6 K/CMM 1.0 - 5.5 11/20 The [place] HEMATOLOGY Segs-Bands # 6.8 K/CMM 1.5 - 8.1 11/20 The [place] HEMATOLOGY Platelet 170 K/CMM 133 - 450 11/20 The [place] HEMATOLOGY MPV 7.6 fL 7.4 - 10.4 11/20 The [place] HEMATOLOGY MCHC 33.8 g/dL 32.0 - 11/20 The 36.0 [place] HEMATOLOGY RDW 14.2 % 11.5 - 11/20 The 14. [place] HEMATOLOGY MCH 33.1 pg 27.0 - 11/20 The [place] HEMATOLOGY MCV 97.9 fL 80.0 - 11/20 The [place] HEMATOLOGY Hgb 14.2 g/dL 14.0 - 11/20 The [place] HEMATOLOGY Hct 42.1 % 42.0 - 11/20 The [place] HEMATOLOGY WBC 9.3 K/CMM 3.7 - 10.4 11/20 [place] HEMATOLOGY RBC 4.30 M/CMM 4.70 - 11/20 The 11.04 [place] CHEM PANEL eGFR 47 11/17 2Result Comment: [...] is not recommended in the following populations: [place] 3m2 Individuals with unstable creatinine concentrations, including [...] 1.7 mg/dL 0.5 - 1.4 11/17 The [place] CHEM PANEL BUN 14 mg/dL 7 - 11/17 [place] ELECTROLYT Potassium 4.3 meq/L 3.5 - 5.1 11/17 The ES [place] HEMATOLOGY Hct 36.8 % 42.0 - 11/17 The [place] HEMATOLOGY MCV 97.6 fL 80.0 - 11/17 The [place] HEMATOLOGY MCH 33.2 pg 27.0 - 11/17 The [place] HEMATOLOGY Hgb 12.5 g/dL 14.0 - 11/17 The [place] HEMATOLOGY WBC 7.7 K/CMM 3.7 - 10.4 11/17 The [place] HEMATOLOGY RBC 3.77 M/CMM 4.70 - 11/17 The 6.10 [place] HEMATOLOGY RDW 14.0 % 11.5 - 11/17 The 14. [place] HEMATOLOGY Platelet 155 K/CMM 133 - 450 11/17 The [place] HEMATOLOGY MPV 7.7 fL 7.4 - 10.4 11/17 The [place] HEMATOLOGY MCHC 34.0 g/dL 32.0 - 11/17 The 36.0 [place] HEMATOLOGY Segs-Bands # 5.7 K/CMM 1.5 - 8.1 11/17 The [place] HEMATOLOGY Eosinophils 4.3 % 0.0 - 4.0 11/17 The [place] HEMATOLOGY Basophils # 0.0 K/CMM 0.0 - 0.2 11/17 The [place] HEMATOLOGY Basophils 0.3 % 0.0 - 1.0 11/17 The [place] HEMATOLOGY Monocytes 5.1 % 2.0 - 12.0 11/17 The [place] HEMATOLOGY Lymphocytes 16.3 % 20.0 - 11/17 The 40.0 [place] HEMATOLOGY Lymphocytes 1.2 K/CMM 1.0 - 5.5 11/17 The [place] HEMATOLOGY Eosinophils 0.3 K/CMM 0.0 - 0.5 11/17 The [place] HEMATOLOGY Monocytes # 0.4 K/CMM 0.0 - 0.8 11/17 The [place] HEMATOLOGY Segs 74.0 % 45.0 - 11/17 The 75.0 [place] CHEM PANEL eGFR 54 11/13 3Result Comment: [...] is not recommended in the following populations: [place] 3m2 Individuals with unstable creatinine concentrations, including [...] 1.5 mg/dL 0.5 - 1.4 11/13 The [place] CHEM PANEL BUN 11 mg/dL 7 - 22 11/13 [place] ELECTROLYT Potassium 4.5 meq/L 3.5 - 5.1 11/13 The ES Lvl [place] HEMATOLOGY MCH 32.7 pg 27.0 - 11/13 The 31.0 [place] HEMATOLOGY MCHC 33.6 g/dL 32.0 - 11/13 The 36.0 [place] HEMATOLOGY Platelet 186 K/CMM 133 - 450 11/13 The [place] HEMATOLOGY RDW 14.0 % 11.5 - 11/13 MH The 14.5 [place] HEMATOLOGY MPV 7.4 fL 7.4 - 10.4 11/13 The [place] HEMATOLOGY Hgb 12.2 g/dL 14.0 - 11/13 The 18.0 [place] HEMATOLOGY RBC 3.73 M/CMM 4.70 - 11/13 MH The 6.10 [place] HEMATOLOGY MCV 97.6 fL 80.0 - 11/13 The 94.0 [place] HEMATOLOGY Hct 36.4 % 42.0 - 11/13 MH The 54.0 [place] HEMATOLOGY WBC 9.7 K/CMM 3.7 - 10.4 11/13 The [place] HEMATOLOGY Basophils # 0.1 K/CMM 0.0 - 0.2 11/13 The [place] HEMATOLOGY Lymphocytes 2.0 K/CMM 1.0 - 5.5 11/13 MH The [place] HEMATOLOGY Monocytes # 0.7 K/CMM 0.0 - 0.8 11/13 MH The [place] HEMATOLOGY Eosinophils 0.4 K/CMM 0.0 - 0.5 11/13 MH The [place] HEMATOLOGY Basophils 0.6 % 0.0 - 1.0 11/13 The [place] HEMATOLOGY Segs-Bands # 6.6 K/CMM 1.5 - 8.1 11/13 [place] HEMATOLOGY Lymphocytes 20.5 % 20.0 - 11/13 MH The 40.0 [place] HEMATOLOGY Monocytes 7.3 % 2.0 - 12.0 11/13 [place] HEMATOLOGY Eosinophils 3.7 % 0.0 - 4.0 11/13 [place] HEMATOLOGY Segs 67.9 % 45.0 - 11/13 The 75.0 [place] Vital Signs Vital Sign Value Date Comments Source Systolic (mm Hg) 84 04/05/2016 [facility] [place] Diastolic (mm Hg) 47 04/05/2016 [place] Respitory Rate 18 04/05/2016 [place] Heart Rate 76 04/05/2016 [place] Systolic (mm Hg) 80 04/05/2016 [place] Diastolic (mm Hg) 49 04/05/2016 [place] Respitory Rate 18 04/05/2016 [place] Heart Rate 73 04/05/2016 [place] Respitory Rate 18 04/05/2016 [place] Heart Rate 72 04/05/2016 [place] Systolic (mm Hg) 79 04/05/2016 [place] Diastolic (mm Hg) 42 04/05/2016 [place] Temperature Oral (F) 97.7 F 04/05/2016 [place] Temperature Oral (F) 97.7 F 04/05/2016 [place] Temperature Oral (F) 98.2 F 04/05/2016 [place] Weight 98.6 04/05/2016 [place] BMI Calculated 28.81 04/05/2016 [place] Height 185 cm 04/05/2016 [place] Respitory Rate 18 03/14/2016 [place] Systolic (mm Hg) 119 03/14/2016 [place] Diastolic (mm Hg) 63 03/14/2016 [place] Systolic (mm Hg) 124 03/14/2016 [place] Diastolic (mm Hg) 58 03/14/2016 [place] Respitory Rate 16 03/14/2016 [place] Temperature Oral (F) 98.8 F 03/14/2016 [place] Respitory Rate 18 03/14/2016 [place] Systolic (mm Hg) 129 03/14/2016 MH [place] Diastolic (mm Hg) 62 03/14/2016 [place] Temperature Oral (F) 98.7 F 03/14/2016 MH [place] Heart Rate 95 03/14/2016 MH [place] BMI Calculated 28.69 03/13/2016 MH [place] Weight 98.636 03/13/2016 [place] Temperature Oral (F) 98.6 F 03/13/2016 MH [place] Height 185.42 cm 03/13/2016 MH [place] Heart Rate 105 03/13/2016 MH [place] Heart Rate 111 02/18/2016 [place] Temperature Oral (F) 98.8 F 02/18/2016 MH [place] Respitory Rate 18 02/18/2016 MH [place] Systolic (mm Hg) 110 02/18/2016 MH [place] Diastolic (mm Hg) 56 02/18/2016 [place] Temperature Oral (F) 98.3 F 02/18/2016 [place] Heart Rate 97 02/18/2016 MH [place] Systolic (mm Hg) 94 02/18/2016 MH [place] Diastolic (mm Hg) 56 02/18/2016 [place] Respitory Rate 18 02/18/2016 [place] Temperature Oral (F) 98.2 F 02/18/2016 [place] Heart Rate 86 02/18/2016 MH [place] Systolic (mm Hg) 112 02/18/2016 MH [place] Diastolic (mm Hg) 54 02/18/2016 [place] Respitory Rate 18 02/18/2016 [place] Weight 96.023 02/08/2016 [place] BMI Calculated 28.69 02/08/2016 [place] Weight 98.636 02/08/2016 [place] Height 185.42 cm 02/08/2016 MH [place] Weight 97.273 02/01/2016 MH [place] BMI Calculated 28.29 02/01/2016 MH [place] Height 185.42 cm 02/01/2016 MH [place] Height 185.42 cm 01/31/2016 [facility] [place] BMI Calculated 27.63 01/31/2016 MH [place] Respitory Rate 16 02/16/2015 [place] Temperature Oral (F) 98.0 F 02/16/2015 [place] Respitory Rate 18 02/16/2015 [place] Heart Rate 77 02/16/2015 [place] Systolic (mm Hg) 175 02/16/2015 MH [place] Diastolic (mm Hg) 94 02/16/2015 [place] Temperature Oral (F) 98.2 F 02/16/2015 [place] Heart Rate 74 02/16/2015 MH [place] Systolic (mm Hg) 164 02/16/2015 MH [place] Diastolic (mm Hg) 89 02/16/2015 [place] Respitory Rate 18 02/16/2015 [place] Temperature Oral (F) 97.5 F 02/16/2015 MH [place] Systolic (mm Hg) 145 02/16/2015 MH [place] Diastolic (mm Hg) 83 02/16/2015 [place] Heart Rate 72 02/16/2015 [place] Height 185.42 cm 02/16/2015 [place] BMI Calculated 28.58 02/16/2015 [place] Weight 98.267 02/16/2015 [place] Weight 13.636 02/15/2015 [place] BMI Calculated 3.97 02/15/2015 [place] Height 185.42 cm 02/15/2015 [place] Temperature Oral (F) 98.2 F 02/09/2015 [place] Heart Rate 88 02/09/2015 [place] Respitory Rate 18 02/09/2015 [place] Systolic (mm Hg) 173 02/09/2015 [place] Diastolic (mm Hg) 82 02/09/2015 [place] BMI Calculated 31.47 02/09/2015 [place] Weight 108.182 02/09/2015 [place] Height 185.42 cm 02/09/2015 [place] Systolic (mm Hg) 189 02/09/2015 [place] Diastolic (mm Hg) 97 02/09/2015 [place] Heart Rate 77 02/09/2015 [place] Respitory Rate 16 02/09/2015 MH [place] Systolic (mm Hg) 172 01/23/2015 MH [place] Diastolic (mm Hg) 79 01/23/2015 [place] Systolic (mm Hg) 174 01/23/2015 [place] Diastolic (mm Hg) 92 01/23/2015 [place] Systolic (mm Hg) 184 01/23/2015 [facility] Diastolic (mm Hg) 86 01/23/2015 [place] Respitory Rate 18 01/23/2015 [place] Weight 104.545 01/23/2015 [place] Height 185.42 cm 01/23/2015 [place] BMI Calculated 30.41 01/23/2015 [place] Respitory Rate 18 01/23/2015 [facility] Heart Rate 92 01/23/2015 [facility] Temperature Oral (F) 98.5 F 01/23/2015 [facility] Encounters Location Location Encounter Encounter Reason Attending ADM DC Status Source Details Type Number For Provider Date Date Visit [facility] OP Recurring [id number] Nabeel 10/31 11/30 The [facility] Rosibel /2013 [facility] EC Emergency [id number] Edozie 01/23 01/23 The [facility] Lisandra /2014 [facility] Emergency [id number] Az Ladd 02/09 02/09 [facility] /2014 [facility] OBS [id number] Juan 02/15 02/16 The [facility] Observation Torres /2014 [place] [facility] [id number] Abb 01/30 02/17 The Ronald Kari /2015 [facility] Emergency [id number] Blanche 03/13 03/14 The Kaiemile Diaz /2015 [facility] Outpatient [id number] Abb 04/05 04/06 The Ronald Kari /2015 [facility] Procedures Procedure Code Date Perfomer Comments Source Amputation of toe [id number] [place] Amputation of [id number] 2 toes The toe<sup>1</sup> [place] Blood transfusion [id number] [facility]
[2018-03-21] MEDS ORDERED: LORazepam 2 MG/ML VIAL ONE (10:58)
[2018-03-21] MEDS ORDERED: ZIPRASIDONE MESYLA 20 MG/VIAL IM ONE (10:58)
--- OUTSIDE RECORDS SUMMARY | 2018-03-21 10:59 | XMS REPORT ---
:1965 [facility] Address [address] [place] [address] Dr. Monsivais [address] [place] [id number] Care Team Providers Name Role Phone VICTOR [...] Value Reference Range Comments CULTURE (BEAKER) (test lksu=5575) No growth in 5 days STOOL CULTURE + SHIGA [id number] 09:59:00 Test Item Value Reference Range Comments CULTURE (BEAKER) (test No Salmonella, Shigella or izwy=7653) Campylobacter isolated STOOL PATH [id number] 09:01:00 Test Item Value Reference Range Comments PATHOGEN EXAM CHARGED (BEAKER) (test bvjg=5930) Done BASIC METABOLIC [id number] 06:59:00 Test Item Value Reference Range Comments SODIUM (BEAKER) (test 137 meq/L 136-145 kdds=522) POTASSIUM (BEAKER) (test 3.6 meq/L 3.5-5.1 klhd=726) CHLORIDE (BEAKER) (test 110 meq/L 98-107 kntv=160) CO2 (BEAKER) (test 16 meq/L 22-29 czbv=443) BLOOD UREA NITROGEN 18 mg/dL 7-21 (BEAKER) (test tnvs=356) CREATININE (BEAKER) (test 2.02 mg/dL 0.57-1.25 xghi=536) GLUCOSE RANDOM (BEAKER) 91 mg/dL 70-105 (test fmij=326) CALCIUM (BEAKER) (test 9.3 mg/dL 8.4-10.2 bfvo=571) EGFR (BEAKER) (test 35 mL/min/1.73 sq m ESTIMATED GFR IS NOT jxqa=5323) ACCURATE CREATININE CLEARANCE IN PREDICTING GLOMERULAR FILTRATION RATE. ESTIMATED GFR IS NOT APPLICABLE FOR DIALYSIS PATIENTS. SHIGA TOXIN [id number] 15:48:00 Test Item Value Reference Range Comments SHIGA TOXIN 1 (BEAKER) (test kjie=2771) Not detected Not detected SHIGA TOXIN 2 (BEAKER) (test blkc=5550) Not detected Not detected CLOSTRIDIUM DIFFICILE TOXIN [id number] 15:13:00 Test Item Value Reference Range Comments CLOSTRIDIUM DIFFICILE TOXIN, PCR (BEAKER) (test Not Detected Not Detected kyzw=4466) This qualitative real-time polymerase chain reaction assay [...] a positive result is not recommended.BLOOD GAS, [id number] 11:03:00 Test Item Value Reference Range Comments PH ARTERIAL (BEAKER) (test tugj=698) 7.38 7.35-7.45 PCO2 ARTERIAL (BEAKER) (test rgir=446) 28 mmHg 35-45 PO2 ARTERIAL (BEAKER) (test ybzn=641) 95 mmHg 80-90 O2 SATURATION ARTERIAL (BEAKER) (test cmcr=947) 97.4 % 96.0-97.0 HCO3 ARTERIAL (BEAKER) (test svgm=790) 16 mmol/L 21-29 BASE EXCESS ARTERIAL (BEAKER) (test hqvi=239) -7.2 mmol/L -2.0-3.0 PATIENT TEMPERATURE (BEAKER) (test lacs=6713) 36.5 C FIO2 (BEAKER) (test wmxd=5100) 21.0 % BASIC METABOLIC [id number] 05:14:00 Test Item Value Reference Range Comments SODIUM (BEAKER) (test 136 meq/L 136-145 onvu=727) POTASSIUM (BEAKER) (test 3.9 meq/L 3.5-5.1 wqxt=299) CHLORIDE (BEAKER) (test 111 meq/L 98-107 gfyr=916) CO2 (BEAKER) (test 13 meq/L 22-29 ndsw=084) BLOOD UREA NITROGEN 20 mg/dL 7-21 (BEAKER) (test dnnp=329) CREATININE (BEAKER) (test 2.70 mg/dL 0.57-1.25 blkr=518) GLUCOSE RANDOM (BEAKER) 77 mg/dL 70-105 (test rwnp=932) CALCIUM (BEAKER) (test 9.3 mg/dL 8.4-10.2 gznj=391) EGFR (BEAKER) (test 25 mL/min/1.73 sq m ESTIMATED GFR IS NOT qguu=7252) ACCURATE CREATININE CLEARANCE IN PREDICTING GLOMERULAR FILTRATION RATE. ESTIMATED GFR IS NOT APPLICABLE FOR DIALYSIS PATIENTS. PTH, [id number] 05:03:00 Test Item Value Reference Range Comments PARATHYROID HORMONE INTACT (BEAKER) (test 41.8 pg/mL 8.5-72.5 wozb=415) BASIC METABOLIC [id number] 07:10:00 Test Item Value Reference Range Comments SODIUM (BEAKER) (test 136 meq/L 136-145 ernh=519) POTASSIUM (BEAKER) (test 3.4 meq/L 3.5-5.1 cbqr=221) CHLORIDE (BEAKER) (test 109 meq/L 98-107 tirk=708) CO2 (BEAKER) (test 15 meq/L 22-29 fclm=756) BLOOD UREA NITROGEN 23 mg/dL 7-21 (BEAKER) (test kspj=085) CREATININE (BEAKER) (test 3.91 mg/dL 0.57-1.25 xnes=943) GLUCOSE RANDOM (BEAKER) 79 mg/dL 70-105 (test dagp=962) CALCIUM (BEAKER) (test 8.9 mg/dL 8.4-10.2 iprj=896) EGFR (BEAKER) (test 16 mL/min/1.73 sq m ESTIMATED GFR IS NOT icgh=8886) ACCURATE CREATININE CLEARANCE IN PREDICTING GLOMERULAR FILTRATION RATE. ESTIMATED GFR IS NOT APPLICABLE FOR DIALYSIS PATIENTS. SODIUM, RANDOM [id number] 06:58:00 Test Item Value Reference Range Comments SODIUM URINE (BEAKER) (test jodw=257) 65 meq/L Reference Range: No NormalsPROTHROMBIN [id number] 06:47:00 Test Item Value Reference Range Comments PROTIME (BEAKER) (test piqs=469) 14.5 seconds 11.7-14.7 INR (BEAKER) (test fcea=328) 1.1 <=5.9 RECOMMENDED COUMADIN/WARFARIN INR THERAPY RANGESSTANDARD DOSE: 2.0 - 3.0 Includes: PROPHYLAXIS forvenous thrombosis, systemic embolization; TREATMENT for venous thrombosis and/or pulmonary embolus.HIGH RISK: Target INR is 2.5-3.5 for patients with mechanical heart valves.RAPID DRUG SCREEN, [id number] 15: 43:00 Test Item Value Reference Range Comments BARBITURATE URINE (BEAKER) (test vuwi=666) Negative Negative BENZODIAZEPINE SCREEN URINE (BEAKER) (test Positive Negative dwdt=135) COCAINE (METAB.) SCREEN (BEAKER) (test xscp=7896) Negative Negative METHADONE SCREEN (BEAKER) (test suqo=7710) Negative Negative OPIATE SCREEN URINE (BEAKER) (test ispu=605) Negative Negative CANNABINOID SCREEN URINE (BEAKER) (test kjao=086) Negative Negative AMPH/METHAMPH SCREEN (BEAKER) (test ylwx=2203) Negative Negative PHENCYCLIDINE SCREEN URINE (BEAKER) (test lflx=514) Negative Negative OXYCODONE SCREEN URINE (BEAKER) (test wpbr=0537) Negative Negative DRUG CUTOFF CONC.Cocaine 300 ng/mL Cannabinoid 50 ng/mL Benzodiazepine 200 ng/mLBarbiturate 200 ng/ mLPhencyclidine 25 ng/mLOpiate 300 ng/mLMethadone 300 ng/mLAmphetamine/ 1000 ng/mL MethamphetamineOxycodone 300 ng/mLThis assay provides an unconfirmed qualitative test result for the clinical management of patients in emergency situations. Chain of custody not maintained. Some glwa-hhw-yehjcjr medications, as well as adulterants, may cause inaccurate results. Clinical correlation should be applied. A more comprehensive drug screen or confirmation of a detected drug may be performed upon request.URINE [id number] 14:33:00 Test Item Value Reference Range Comments CULTURE (BEAKER) (test vmjo=1743) No growth BASIC METABOLIC [id number] 08:09:00 Test Item Value Reference Range Comments SODIUM (BEAKER) (test 136 meq/L 136-145 ywvo=881) POTASSIUM (BEAKER) (test 3.5 meq/L 3.5-5.1 Specimen slightly toax=598) hemolyzed CHLORIDE (BEAKER) (test 107 meq/L 98-107 owaf=237) CO2 (BEAKER) (test 15 meq/L 22-29 rtgh=167) BLOOD UREA NITROGEN 25 mg/dL 7-21 (BEAKER) (test ktrp=078) CREATININE (BEAKER) (test 4.75 mg/dL 0.57-1.25 Specimen slightly xlje=203) hemolyzed GLUCOSE RANDOM (BEAKER) 74 mg/dL 70-105 (test hfxa=321) CALCIUM (BEAKER) (test 8.5 mg/dL 8.4-10.2 kljm=053) EGFR (BEAKER) (test 13 mL/min/1.73 sq m ESTIMATED GFR IS NOT jnoq=7763) ACCURATE CREATININE CLEARANCE IN PREDICTING GLOMERULAR FILTRATION RATE. ESTIMATED GFR IS NOT APPLICABLE FOR DIALYSIS PATIENTS. CBC W/PLT COUNT & AUTO [id number] 06:38:00 Test Item Value Reference Range Comments WHITE BLOOD CELL COUNT (BEAKER) (test jrtg=101) 9.9 K/ L 3.5-10.5 RED BLOOD CELL COUNT (BEAKER) (test yeby=213) 4.01 M/ L 4.63-6.08 HEMOGLOBIN (BEAKER) (test imlk=716) 13.2 GM/DL 13.7-17.5 HEMATOCRIT (BEAKER) (test ktvi=422) 38.1 % 40.1-51.0 MEAN CORPUSCULAR VOLUME (BEAKER) (test tdww=292) 95.0 fL 79.0-92.2 MEAN CORPUSCULAR HEMOGLOBIN (BEAKER) (test 32.9 pg 25.7-32.2 iunc=294) MEAN CORPUSCULAR HEMOGLOBIN CONC (BEAKER) (test 34.6 GM/DL 32.3-36.5 yncu=211) RED CELL DISTRIBUTION WIDTH (BEAKER) (test 13.1 % 11.6-14.4 vzaw=715) PLATELET COUNT (BEAKER) (test tarm=358) 121 K/CU MM 150-450 MEAN PLATELET VOLUME (BEAKER) (test bjri=777) 10.1 fL 9.4-12.4 NUCLEATED RED BLOOD CELLS (BEAKER) (test 0 /100 WBC 0-0 omyi=772) NEUTROPHILS RELATIVE PERCENT (BEAKER) (test 73 % tprx=179) LYMPHOCYTES RELATIVE PERCENT (BEAKER) (test 17 % erhu=380) MONOCYTES RELATIVE PERCENT (BEAKER) (test 8 % ezlj=455) EOSINOPHILS RELATIVE PERCENT (BEAKER) (test 2 % amox=672) BASOPHILS RELATIVE PERCENT (BEAKER) (test 0 % tkgm=330) NEUTROPHILS ABSOLUTE COUNT (BEAKER) (test 7.25 K/ L 1.78-5.38 kcmh=561) LYMPHOCYTES ABSOLUTE COUNT (BEAKER) (test 1.66 K/ L 1.32-3.57 otye=725) MONOCYTES ABSOLUTE COUNT (BEAKER) (test 0.76 K/ L 0.30-0.82 nkep=447) EOSINOPHILS ABSOLUTE COUNT (BEAKER) (test 0.19 K/ L 0.04-0.54 mrya=080) BASOPHILS ABSOLUTE COUNT (BEAKER) (test 0.03 K/ L 0.01-0.08 ibmu=025) IMMATURE GRANULOCYTES-RELATIVE PERCENT (BEAKER) 0 % 0-1 (test zxsi=6734) U/S, RENAL, [id number] 22:34:00Reason for exam:->acute kidney injuryFINAL REPORT Renal [...] [place] Verified Date/Time: 2016 22:34:25 Reading Location:[facility] C0[facility] Consult Reading Room MR, BRAIN, WITHOUT [id number] 19:18:00Reason for exam:->Stroke evaluationFINAL REPORT MRI Brain [...] MDReport Verified Date/Time: 04/17/2017 19:18:34 Reading Location: [facility] Radiology Reading Room EEG MONITORING WITH VIDEO RECORDING EACH 24 [id number] 18:01:00DATE OF TEST: 04/17/2017 DATE OF REPORT 04/17/2017 ACC: [id number] EE Start time: 16:42 Stop time: 18: 44 ICD-10: R56.9 CPT Code: 21111 HISTORY: 51 y/o woman with history of [...] Shahnaz Davis MD Neurophysiology Attending URINALYSIS W/ [id number] 11:57:00 Test Item Value Reference Range Comments COLOR (BEAKER) (test yqci=330) Light Yellow CLARITY (BEAKER) (test jklz=127) Clear SPECIFIC GRAVITY UA (BEAKER) (test audx=574) 1.006 1.001-1.035 PH UA (BEAKER) (test wyun=639) 6.0 5.0-8.0 PROTEIN UA (BEAKER) (test zlgr=707) 30 mg/dL Negative GLUCOSE UA (BEAKER) (test qums=502) Negative Negative KETONES UA (BEAKER) (test vimx=849) Negative Negative BILIRUBIN UA (BEAKER) (test xuiq=708) Negative Negative BLOOD UA (BEAKER) (test pake=170) Small Negative NITRITE UA (BEAKER) (test zyit=857) Negative Negative LEUKOCYTE ESTERASE UA (BEAKER) (test blgs=360) Large Negative UROBILINOGEN UA (BEAKER) (test clui=783) 0.2 mg/dL 0.2-1.0 RBC UA (BEAKER) (test bwsq=977) 7 /HPF WBC UA (BEAKER) (test fpqd=623) 21 /HPF BACTERIA (BEAKER) (test tcee=804) Occasional SQUAMOUS EPITHELIAL (BEAKER) (test vdnq=775) < /HPF URIC ACID CRYSTALS (BEAKER) (test pdbr=0074) Rare SOURCE(BEAKER) (test rpfq=3148) Urine, Cooper EOSINOPHIL SMEAR, [id number] 11:56:00 Test Item Value Reference Range Comments EOSINOPHIL SMEAR, URINE (BEAKER) (test No EOS seen No EOS seen dvda=2561) CREATININE, RANDOM [id number] 11:24:00 Test Item Value Reference Range Comments CREATININE URINE (BEAKER) (test vwpt=695) 69.7 mg/dL Reference Range: No NormalsSODIUM, RANDOM [id number] 11:24:00 Test Item Value Reference Range Comments SODIUM URINE (BEAKER) (test dlfl=360) 58 meq/L Reference Range: No NormalsUREA NITROGEN, RANDOM [id number] 11:24:00 Test Item Value Reference Range Comments UREA NITROGEN URINE (BEAKER) (test pogl=521) 172 mg/dL Reference Range: No NormalsCREATINE KINASE (CK)2017-04-17 11:06:00 Test Item Value Reference Range Comments CREATINE KINASE TOTAL (BEAKER) (test lnyj=103) 136 U/L 29-200 BASIC METABOLIC [id number] 04:53:00 Test Item Value Reference Range Comments SODIUM (BEAKER) (test 137 meq/L 136-145 cadw=247) POTASSIUM (BEAKER) (test 3.4 meq/L 3.5-5.1 wzqs=097) CHLORIDE (BEAKER) (test 105 meq/L 98-107 exnu=659) CO2 (BEAKER) (test 21 meq/L 22-29 wslc=080) BLOOD UREA NITROGEN 19 mg/dL 7-21 (BEAKER) (test xsis=198) CREATININE (BEAKER) (test 3.75 mg/dL 0.57-1.25 gtho=099) GLUCOSE RANDOM (BEAKER) 100 mg/dL 70-105 (test dblc=413) CALCIUM (BEAKER) (test 8.6 mg/dL 8.4-10.2 kkvg=120) EGFR (BEAKER) (test 17 mL/min/1.73 sq m ESTIMATED GFR IS NOT rlso=8582) ACCURATE CREATININE CLEARANCE IN PREDICTING GLOMERULAR FILTRATION RATE. ESTIMATED GFR IS NOT APPLICABLE FOR DIALYSIS PATIENTS. CBC W/PLT COUNT & AUTO [id number] 04:19:00 Test Item Value Reference Range Comments WHITE BLOOD CELL COUNT (BEAKER) (test jtjd=704) 12.0 K/ L 3.5-10.5 RED BLOOD CELL COUNT (BEAKER) (test fnyr=294) 4.19 M/ L 4.63-6.08 HEMOGLOBIN (BEAKER) (test kxfe=731) 13.8 GM/DL 13.7-17.5 HEMATOCRIT (BEAKER) (test zoom=170) 40.4 % 40.1-51.0 MEAN CORPUSCULAR VOLUME (BEAKER) (test wpss=982) 96.4 fL 79.0-92.2 MEAN CORPUSCULAR HEMOGLOBIN (BEAKER) (test 32.9 pg 25.7-32.2 uoyo=599) MEAN CORPUSCULAR HEMOGLOBIN CONC (BEAKER) (test 34.2 GM/DL 32.3-36.5 xbjf=134) RED CELL DISTRIBUTION WIDTH (BEAKER) (test 13.4 % 11.6-14.4 cvuk=773) PLATELET COUNT (BEAKER) (test pxzh=919) 118 K/CU MM 150-450 MEAN PLATELET VOLUME (BEAKER) (test tclp=663) 9.5 fL 9.4-12.4 NUCLEATED RED BLOOD CELLS (BEAKER) (test 0 /100 WBC 0-0 fpsm=497) NEUTROPHILS RELATIVE PERCENT (BEAKER) (test 77 % lnhw=464) LYMPHOCYTES RELATIVE PERCENT (BEAKER) (test 15 % pajh=698) MONOCYTES RELATIVE PERCENT (BEAKER) (test 7 % schi=953) EOSINOPHILS RELATIVE PERCENT (BEAKER) (test 1 % vopl=961) BASOPHILS RELATIVE PERCENT (BEAKER) (test 0 % xxga=154) NEUTROPHILS ABSOLUTE COUNT (BEAKER) (test 9.20 K/ L 1.78-5.38 ajqm=007) LYMPHOCYTES ABSOLUTE COUNT (BEAKER) (test 1.78 K/ L 1.32-3.57 ctml=858) MONOCYTES ABSOLUTE COUNT (BEAKER) (test 0.82 K/ L 0.30-0.82 kmmv=489) EOSINOPHILS ABSOLUTE COUNT (BEAKER) (test 0.12 K/ L 0.04-0.54 euxj=393) BASOPHILS ABSOLUTE COUNT (BEAKER) (test 0.04 K/ L 0.01-0.08 vlej=653) IMMATURE GRANULOCYTES-RELATIVE PERCENT (BEAKER) 0 % 0-1 (test ztfj=9542) EEG MONITORING WITH VIDEO RECORDING EACH 24 [id number] 17:57:00DATE OF TEST : 04/16/2017DATE OF REPORT 04/16/2017 ACC: [id number]: Start time: 08: 42 Stop time: 16:42ICD-10: R56.9CPT Code: 37486QYNBLFI: 51 y/o woman with history of epilepsy [...] report.Phoebe Villar MDEpilepsy Attending EEG AWAKE/ASLEEP AND [id number] 13:27:00Reason for exam:->status epilepticusDATE OF TEST: DATE OF REPORT 04/16/2017 ACC: [id number] EEart time: 08:21 Stop time: 08:42ICD-10: R56.9CPT Code: [id number]: 51 y/o woman with history of epilepsy [...] this report.Phoebe Villar MDEpilepsy Attending HEPATIC FUNCTION [id number] 12:59:00 Test Item Value Reference Range Comments TOTAL PROTEIN (BEAKER) (test 8.0 gm/dL 6.0-8.3 Specimen moderately hemolyzed wkhk=025) ALBUMIN (BEAKER) (test 3.8 g/dL 3.5-5.0 Specimen moderately hemolyzed julw=5681) BILIRUBIN TOTAL (BEAKER) (test 0.3 mg/dL 0.2-1.2 Specimen moderately hemolyzed yytn=112) BILIRUBIN DIRECT (BEAKER) 0.1 mg/dL 0.1-0.5 Specimen moderately hemolyzed (test oolb=185) ALKALINE PHOSPHATASE (BEAKER) 79 U/L 40-150 (test rxwi=539) AST (SGOT) (BEAKER) (test 34 U/L 5-34 Specimen moderately hemolyzed lexi=391) ALT (SGPT) (BEAKER) (test 30 U/L 6-55 Specimen moderately ibtf=543) hemolyzed RAD, CHEST, 1 VIEW, NON [id number] 09:16:00Reason for exam:-> intubatedShould this be performed [...] Hernandez Verified Date/Time: 04/16/2017 09:16:32 Reading Location: [facility] Radiology Reading Room VITAMIN [id number] 07:31:00 Test Item Value Reference Range Comments VITAMIN B12 (BEAKER) (test pmzb=292) 450 pg/mL 213-816 FOLATE, [id number] 07:31:00 Test Item Value Reference Range Comments FOLATE (BEAKER) (test frlu=460) 8.0 ng/mL >=7.0 URINALYSIS W/ [id number] 07:09:00 Test Item Value Reference Range Comments COLOR (BEAKER) (test qmfq=267) Light Yellow CLARITY (BEAKER) (test wwhk=244) Hazy SPECIFIC GRAVITY UA (BEAKER) (test owfj=019) 1.008 1.001-1.035 PH UA (BEAKER) (test issk=546) 6.0 5.0-8.0 PROTEIN UA (BEAKER) (test lumn=500) 20 mg/dL Negative GLUCOSE UA (BEAKER) (test rzdh=201) 200 mg/dL Negative KETONES UA (BEAKER) (test gzbg=122) Negative Negative BILIRUBIN UA (BEAKER) (test osjy=781) Negative Negative BLOOD UA (BEAKER) (test smrq=595) Negative Negative NITRITE UA (BEAKER) (test sezt=341) Negative Negative LEUKOCYTE ESTERASE UA (BEAKER) (test mbdb=111) Negative Negative UROBILINOGEN UA (BEAKER) (test kode=077) 0.2 mg/dL 0.2-1.0 RBC UA (BEAKER) (test qwgx=697) < /HPF WBC UA (BEAKER) (test vdfb=982) 1 /HPF BACTERIA (BEAKER) (test mxvj=866) Rare SQUAMOUS EPITHELIAL (BEAKER) (test yzot=868) < /HPF HYALINE CASTS (BEAKER) (test msgg=623) 8 /LPF SOURCE(BEAKER) (test obba=9443) [id number] 05:59:00 Test Item Value Reference Range Comments MAGNESIUM (BEAKER) (test 3.0 mg/dL 1.6-2.6 Specimen moderately hemolyzed sbkl=911) [id number] 05:59:00 Test Item Value Reference Range Comments PHOSPHORUS (BEAKER) (test 3.0 mg/dL 2.3-4.7 Specimen moderately hemolyzed wdeq=220) BASIC METABOLIC [id number] 05:59:00 Test Item Value Reference Range Comments SODIUM (BEAKER) (test 137 meq/L 136-145 vdgk=890) POTASSIUM (BEAKER) (test 3.8 meq/L 3.5-5.1 Specimen moderately rqfr=214) hemolyzed CHLORIDE (BEAKER) (test 99 meq/L 98-107 cuzo=710) CO2 (BEAKER) (test 23 meq/L 22-29 fsdb=966) BLOOD UREA NITROGEN 14 mg/dL 7-21 (BEAKER) (test xoah=925) CREATININE (BEAKER) (test 1.48 mg/dL 0.57-1.25 Specimen moderately vnfy=435) hemolyzed GLUCOSE RANDOM (BEAKER) 386 mg/dL 70-105 (test utqu=841) CALCIUM (BEAKER) (test 8.0 mg/dL 8.4-10.2 bsir=119) EGFR (BEAKER) (test 50 mL/min/1.73 sq m ESTIMATED GFR IS NOT qmyb=2140) ACCURATE CREATININE CLEARANCE IN PREDICTING GLOMERULAR FILTRATION RATE. ESTIMATED GFR IS NOT APPLICABLE FOR DIALYSIS PATIENTS. PROTHROMBIN [id number] 05:33:00 Test Item Value Reference Range Comments PROTIME (BEAKER) (test egpd=504) 15.7 seconds 11.7-14.7 INR (BEAKER) (test imgf=466) 1.3 <=5.9 RECOMMENDED COUMADIN/WARFARIN INR THERAPY RANGESSTANDARD DOSE: 2.0 - 3.0 Includes: PROPHYLAXIS forvenous thrombosis, systemic embolization; TREATMENT for venous thrombosis and/or pulmonary embolus.HIGH RISK: Target INR is 2.5-3.5 for patients with mechanical heart valves.BLOOD GAS, [id number] 05:31:00 Test Item Value Reference Range Comments PH ARTERIAL (BEAKER) (test dbsc=819) 7.34 7.35-7.45 PCO2 ARTERIAL (BEAKER) (test pmml=895) 43 mmHg 35-45 PO2 ARTERIAL (BEAKER) (test xjru=191) 123 mmHg 80-90 O2 SATURATION ARTERIAL (BEAKER) (test rfbt=002) 98.2 % 96.0-97.0 HCO3 ARTERIAL (BEAKER) (test nkml=131) 22 mmol/L 21-29 BASE EXCESS ARTERIAL (BEAKER) (test bbmg=468) -3.2 mmol/L -2.0-3.0 PATIENT TEMPERATURE (BEAKER) (test cczh=0458) 37.2 C FIO2 (BEAKER) (test zsde=2536) 60.0 % CBC W/PLT COUNT & AUTO [id number] 05:08:00 Test Item Value Reference Range Comments WHITE BLOOD CELL COUNT (BEAKER) (test oxel=261) 16.2 K/ L 3.5-10.5 RED BLOOD CELL COUNT (BEAKER) (test qvpy=952) 4.53 M/ L 4.63-6.08 HEMOGLOBIN (BEAKER) (test gsnr=414) 14.9 GM/DL 13.7-17.5 HEMATOCRIT (BEAKER) (test mchf=483) 43.7 % 40.1-51.0 MEAN CORPUSCULAR VOLUME (BEAKER) (test yelz=684) 96.5 fL 79.0-92.2 MEAN CORPUSCULAR HEMOGLOBIN (BEAKER) (test 32.9 pg 25.7-32.2 aeeu=608) MEAN CORPUSCULAR HEMOGLOBIN CONC (BEAKER) (test 34.1 GM/DL 32.3-36.5 eupr=131) RED CELL DISTRIBUTION WIDTH (BEAKER) (test 13.2 % 11.6-14.4 ejsn=228) PLATELET COUNT (BEAKER) (test gech=452) 127 K/CU MM 150-450 MEAN PLATELET VOLUME (BEAKER) (test qlwa=893) 10.0 fL 9.4-12.4 NUCLEATED RED BLOOD CELLS (BEAKER) (test 0 /100 WBC 0-0 jjfg=244) NEUTROPHILS RELATIVE PERCENT (BEAKER) (test 84 % ebsm=087) LYMPHOCYTES RELATIVE PERCENT (BEAKER) (test 7 % lcjl=404) MONOCYTES RELATIVE PERCENT (BEAKER) (test 9 % upxi=884) EOSINOPHILS RELATIVE PERCENT (BEAKER) (test 0 % ioos=568) BASOPHILS RELATIVE PERCENT (BEAKER) (test 0 % owix=486) NEUTROPHILS ABSOLUTE COUNT (BEAKER) (test 13.58 K/ L 1.78-5.38 qajr=362) LYMPHOCYTES ABSOLUTE COUNT (BEAKER) (test 1.06 K/ L 1.32-3.57 tgmv=084) MONOCYTES ABSOLUTE COUNT (BEAKER) (test 1.38 K/ L 0.30-0.82 atli=733) EOSINOPHILS ABSOLUTE COUNT (BEAKER) (test 0.01 K/ L 0.04-0.54 hyuz=770) BASOPHILS ABSOLUTE COUNT (BEAKER) (test 0.02 K/ L 0.01-0.08 zeai=360) IMMATURE GRANULOCYTES-RELATIVE PERCENT (BEAKER) 1 % 0-1 (test zmdd=2323)
[2018-03-21] MEDS ORDERED: MIDAZOLAM HCL 2 MG/2 ML INJ ONE (11:06)
--- NOTE | 2018-03-21 11:39 | RAD REPORT ---
EXAM DESCRIPTION: CT - Head Brain Wo Cont - 03/21/2018 11:29 am CLINICAL HISTORY: CONFUSED Drowsiness COMPARISON: Head Brain Wo Cont dated 02/18/2018; Head Brain Wo Cont dated 03/13/2017 TECHNIQUE: All CT scans are performed using dose optimization technique as appropriate and may inclu de automated exposure control or mA/KV adjustment according to patient size. FINDINGS: No intracranial hemorrhage, hydrocephalus or extra-axial fluid collection.No areas of brai n edema or evidence of midline shift. The paranasal sinuses and mastoids are clear. The calvarium is intact. IMPRESSION: No acute intracranial abnormality.
[2018-03-21 11:41] LABS: Absolute Lymphocytes (CBC) 4.1 K/uL (0.7-4.9); Absolute Neutrophil 8.7 K/uL (1.8-8.0); Basophils % 1.3 % (0-1.3); Eosinophils % 0.3 % (0-4.4); Hematocrit 55.2 % (39.6-49.0); MCH 32.3 pg (27.0-35.0); MCV 101.9 fL (80-100); MPV 8.9 fL (7.6-11.3); Monocytes % 7.4 % (3.3-12.3); RBC Red Blood Cell Count 5.41 M/uL (4.33-5.43)
[2018-03-21] MEDS ORDERED: NA CHLORIDE 0.9% 1,000 ML ONE ×2 (11:47→12:14)
[2018-03-21 11:51] LABS: Barbiturates NEGATIVE (NEGATIVE); Benzodiazepines NEGATIVE (NEGATIVE); Cocaine NEGATIVE (NEGATIVE); METHAMPHETAM NEGATIVE (NEGATIVE); Methadone NEGATIVE (NEGATIVE); Opiates NEGATIVE (NEGATIVE); Phencyclidine NEGATIVE (NEGATIVE); THC Cannibis NEGATIVE (NEGATIVE)
[2018-03-21 12:01] LABS: Protime INR 0.97
[2018-03-21 12:06] LABS: Arterial Blood Carboxyhemoglob 5.4 % (0-1.5); Blood Gas Oxyhemoglobin 89.7 % (94-97)
--- NOTE | 2018-03-21 12:19 | RAD REPORT ---
EXAM DESCRIPTION: RAD - Chest Single View - 03/21/2018 12:13 pm CLINICAL HISTORY: AMS Chest pain. COMPARISON: Chest Single View dated 04/16/2017; Chest Pa And Lat (2 Views) dated 04/10/2017; Chest S johny View dated 03/15/2017; Chest Single View dated 03/14/2017 FINDINGS: Portable technique limits examination quality. The lungs are emphysematous but grossly clear. The heart is normal in size. No displaced fractures. IMPRESSION: No acute intrathoracic process suspected.
[2018-03-21 12:25] LABS: ALT/SGPT 25 U/L (12-78); AST/SGOT 20 U/L (15-37); Albumin 4.1 g/dL (3.4-5.0); Alkaline Phosphatase 102 U/L (45-117); BUN Blood Urea Nitrogen 12 mg/dL (7-18); Bilirubin Direct < 0.1 mg/dL (0-0.2); Bilirubin Total 0.3 mg/dL (0.2-1.0); Glucose Level 134 mg/dL (74-106); Magnesium 2.8 mg/dL (1.8-2.4); NT PRO-BNP 904 pg/mL (<125); Potassium 3.1 mmol/L (3.5-5.1); Protein, Total 9.3 g/dL (6.4-8.2); Sodium Level 138 mmol/L (136-145); Troponin (Emerg Dept Use Only) < 0.02 ng/mL (0.0-0.045)
[2018-03-21 12:26] LABS: Bicarbonate 13 mmol/L (21-32)
[2018-03-21 12:34] LABS: Urine White Blood Cell Casts OK
[2018-03-21 12:35] LABS: Blood Morphology Comment NOT SEEN (NOT SEEN); Platelet Estimate ADEQ
[2018-03-21 13:01] LABS: Urine Blood NEGATIVE (NEG); Urine Glucose TRACE (NEG); Urine Protein 1+ (NEG); Urine Specific Gravity 1.005 (1.005-1.030); Urine pH 5.5 (5.0-7.0)
[2018-03-21 14:00] LABS: Potassium 3.6 mmol/L (3.5-5.1)
--- NOTE | 2018-03-21 14:13 | ER ---
Nurse's Notes [facility] Name: Karlos Leblanc Age: 52 yrs Sex: Male : 1965 Arrival Date: 03/21/2018 Time: 10:50 Bed 4 Private MD: Diagnosis: Seizure Presentation: 03/21 10:45 Note Went outside to get the pt from his friends truck. Pt was placed in a wheelchair sv by bystander, pt slumped over to the right, drooling. Pt taken to ER #3, uncooperative, aggressive and combative. Dr Guerin and Henry BACA at bedside. 10:51 Presenting complaint: Friend states: He was just at the wound care center to have a sg wound debrided by , we were driving back home and he just got real red in the face and stiffened up and then wasn't acting right or able to talk to me so i turned around and brought him back here. Transition of care: patient was not received from another setting of care. Onset of symptoms was March 21, 2018. Risk Assessment: Do you want to hurt yourself or someone else? Unable to obtain. Initial Sepsis Screen: Does the patient meet any 2 criteria? Altered Mental Status. Does the patient have a suspected source of infection? Yes: Skin breakdown/wound Other: currently being treated by [facility], . Care prior to arrival: None. 10:51 Method Of Arrival: Wheelchair sg 10:51 Acuity: KENIA 2 sg Triage Assessment: 10:45 General: Appears distressed, Behavior is agitated, combative, uncooperative. Pain: sv Unable to use pain scale. Patient is disoriented. FLACC scale score is 0 out of 10. Neuro: Level of Consciousness is confused, Oriented to none Moves all extremities. Respiratory: Respiratory effort is even, labored, Respiratory pattern is tachypnea. Derm: Skin is diaphoretic. Historical: - Allergies: 11:43 NKDA; sg - Home Meds: 11:43 acetic acid topical [Active]; amlodipine 10 mg tab 1 tab once daily [Active]; aspirin sg 81 mg Oral chew 1 tab once daily [Active]; atorvastatin 80 mg Oral tab 1 tab once daily [Active]; Centrum Oral [Active]; clopidogrel 75 mg Oral tab 1 tab once daily [Active]; gabapentin 100 mg Oral cap 2 caps 3 times per day [Active]; ibuprofen 200 mg Oral tab 2 tabs every 4-6 hours [Active]; lisinopril 10 mg Oral tab 1 tab once daily [Active]; naproxen sodium 220 mg Oral cap [Active]; Santyl 250 unit/gram Topical oint once daily [Active]; VITAMIN B1 100 MG DAILY [Active]; - PMHx: 11:43 CHF; COPD; CVA; Myocardial infarction; PVD; Seizures; sg - PSHx: 11:43 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 - Social history:: Smoking status: Patient uses tobacco products, unknown amount. - Ebola Screening: : Patient negative for fever greater than or equal to 101.5 degrees Fahrenheit, and additional compatible Ebola Virus Disease symptoms Patient denies exposure to infectious person Patient denies travel to an Ebola-affected area in the 21 days before illness onset No symptoms or risks identified at this time. Screenin:01 Abuse screen: Denies threats or abuse. Denies injuries from another. Nutritional sv screening: No deficits noted. Tuberculosis screening: No symptoms or risk factors identified. Fall Risk No fall in past 12 months (0 pts). Secondary diagnosis (15 points) seizures, IV access (20 points). Ambulatory Aid- None/Bed Rest/Nurse Assist (0 pts). Gait- Normal/Bed Rest/Wheelchair (0 pts) Mental Status- Oriented to own ability (0 pts). Total Mota Fall Scale indicates Low Risk Score (25-44 pts). Fall prevention measures have been instituted. Side Rails Up X 2 Frequent Obs/Assesments occuring Family Present and informed to notify staff if they need to leave bedside As available Patient and Family Educated on Fall Prevention Program and strategies. Assessment: 11:00 Reassessment: V/O received for Soft Restraint x4 per Henry BACA. sg 11:46 Reassessment: RT at bedside for ABG, pt is awake and speaking with ER staff at this sg time, pt is currently non combative and aa\T\ox2. 11:50 General: Appears in no apparent distress. Behavior is calm, cooperative, appropriate sv for age. Pain: Denies pain. Neuro: Level of Consciousness is awake, obeys commands, confused, Oriented to person, time, Speech is normal. Respiratory: Respiratory effort is even, unlabored, Respiratory pattern is regular, symmetrical. 13:36 Reassessment: Patient appears in no apparent distress at this time. Patient and/or sv family updated on plan of care and expected duration. Pain level reassessed. Patient is alert, oriented x 3, equal unlabored respirations, skin warm/dry/pink. 14:26 Reassessment: Patient appears in no apparent distress at this time. Patient and/or sv family updated on plan of care and expected duration. Pain level reassessed. Patient is alert, oriented x 3, equal unlabored respirations, skin warm/dry/pink. Pt's friend taking him home. Vital Signs: 10:45 Pulse 155; sv 11:15 BP 148 / 84; Pulse 104; Resp 27; Pulse Ox 95% on R/A; dh3 11:15 Temp 98.8; hb 11:53 BP 165 / 92; Pulse 103; Resp 14; Pulse Ox 99% on R/A; sv 13:00 BP 178 / 92; Pulse 95; Resp 13; Pulse Ox 99% ; sv 14:15 BP 166 / 90; Pulse 97; Resp 16; Pulse Ox 99% ; sv 10:45 Pt uncooperative, aggressive, and combative at this time. sv Patricia Coma Score: 12:52 Eye Response: spontaneous(4). Verbal Response: confused(4). Motor Response: obeys jr8 commands(6). Total: 14. ED Course: 10:50 Patient arrived in ED. as 11:00 Patient has correct armband on for positive identification. Bed in low position. Side sv rails up X2. 11:05 Missed attempt(s): 20 gauge in left forearm. x2. Bleeding controlled, band aid applied, sv catheter tip intact. 11:10 Henry Mcgowan PA is PHCP. jr8 11:10 German Guerin MD is Attending Physician. jr8 11:10 Missed attempt(s): 18 gauge in right antecubital area. done by Henry BACA. Bleeding sv controlled, band aid applied, catheter tip intact. 11:12 EKG done, by endoscopy technican. reviewed by Henry BACA. at1 11:20 Initial lab(s) drawn, by wv, sent to lab. Inserted saline lock: 18 gauge in right sv forearm, using aseptic technique. Blood collected. Flushed right forearm with 5 ml normal saline. 11:[address] via stretcher. sv 11:29 CT Head Brain wo Cont In Process Unspecified. EDMS 11:38 Lata Valladares, RN is Primary Nurse. sv 11:40 Straight cath inserted, using sterile technique, 16 Fr. Specimen obtained. Returned sv clear yellow urine. Patient tolerated well. 11:44 Lab(s) recollected, by me, sent to lab. dh3 11:45 Triage completed. sg 11:46 Arm band placed on. sg 11:53 X-ray(s) taken. sv 11:59 X-ray completed. Portable x-ray completed in exam room. Patient tolerated procedure jb2 well. 12:01 XRAY Chest (1 view) In Process Unspecified. EDMS 12:05 ABG Arterial Blood Gas Sent. sv 12:27 Notified Nurse Practitioner and/or Physician Last Ironer of a critical lab result(s), Co2 hb 13. 13:36 Repeat lab(s) drawn. by me, sent to lab. sv 14:08 Notified Nurse Practitioner and/or Physician Last Ironer of a critical lab result(s), sv lactic acid-2.4. 14:12 Anibal Escobar MD is Referral Physician. jr8 14:27 No provider procedures requiring assistance completed. IV discontinued, intact, sv bleeding controlled, No redness/swelling at site. Pressure dressing applied. Restraints: 11:00 Violent/Self Destructive Restraint: Order: obtained. Initiated March 21, 2018 at sg 11:00 Staff present during the Initiation of Restraint: , Henry BACA, Lata Valladares RN, Harish Floyd RN, Latia Haney RN. Observed actions/behavior: violent, severely aggressive, confusion/disorientation, repeated attempts to get up from bed/chair without assistance. decreased Level of Consciousness (LOC), unable to follow instructions, Clinical justification for use: Violent/self destructing behavior impacts therapeutic environment. Poses a serious danger to physical safety of self \T\ others. 11:15 Violent/Self Destructive Restraint: Monitoring: Mental status: patient asleep, sg Cognition: poor judgement, poor safety awareness, Circulation: Within defined parameters (based on Cardiovascular assessment). Skin integrity: Within defined parameters (based on Integumentary assessment). 11:30 Violent/Self Destructive Restraint: Monitoring: Mental status: patient asleep, sg Cognition: poor judgement, poor safety awareness, Circulation: Within defined parameters (based on Cardiovascular assessment). Skin integrity: Within defined parameters (based on Integumentary assessment). 11:45 Violent/Self Destructive Restraint: Monitoring: Mental status: patient asleep, sg Cognition: poor judgement, poor safety awareness, Circulation: Within defined parameters (based on Cardiovascular assessment). Skin integrity: Within defined parameters (based on Integumentary assessment). 11:50 Violent/Self Destructive Restraint: Face to Face Evaluatn: Terminate restraint. MD bocanegra Notified of Evaluation result: Henry BACA Restraint discontinuation: Discontinued at March 21, 2018 at 11:50 Effective alternative interventions: reoriented to location, family at bedside, Debriefing: Staff in attendance: Harish Floyd RN, Lata Valladares RN, Henry BACA. Success/Problems/Necessary Modifications: pt was successfully and safely restrained, no harm to pt or hospital staff noted. Administered Medications: 11:00 Drug: Ativan 2 mg Route: IM; Site: right vastus lateralis; sg 12:05 Follow up: Response: No adverse reaction sv 11:10 Drug: Versed 3 mg Route: IM; Site: right vastus lateralis; sg 12:05 Follow up: Response: No adverse reaction sv 11:39 Not Given (Other Intervention Used): Ativan 2 mg IVP once sg 11:40 Drug: NS 0.9% 1000 ml Route: IV; Rate: 1000 ml; Site: right forearm; sv 13:34 Follow up: Response: No adverse reaction; IV Status: Completed infusion; IV Intake: sv 1000ml 12:21 Drug: NS 0.9% 1000 ml Route: IV; Rate: 1000 ml; Site: right forearm; sv 13:33 Follow up: Response: No adverse reaction; IV Status: Completed infusion; IV Intake: sv 1000ml Point of Care Testing: Blood Glucose: 11:20 Blood Glucose: 118 mg/dL; sg Ranges: Intake: 13:33 IV: 1000ml; Total: 1000ml. sv 13:34 IV: 1000ml; Total: 2000ml. sv Outcome: 14:12 Discharge ordered by . jr8 14:27 Discharged to home ambulatory, with friend. sv 14:27 Condition: stable 14:27 Discharge instructions given to patient, Instructed on discharge instructions, follow up and referral plans. Demonstrated understanding of instructions, follow-up care. 14:28 Patient left the ED. sv Signatures: Dispatcher [employer] Lata Cody, Harish Giron RN, RN RN Bautista Rojas Amelia as Roszak, Josh, PA PA jr8 Becka Stafford, shot grinder operator EKG Tat1 Latia Haney RN RN Sarai Venegas [facility]
--- NOTE | 2018-03-21 14:13 | EDPHYS ---
Physician Documentation [facility] Name: Karlos Leblanc Age: 52 yrs Sex: Male : 1965 Arrival Date: 03/21/2018 Time: 10:50 Bed 4 Private MD: ED Physician German Guerin HPI: 03/21 12:52 This 52 yrs old Male presents to ER via Wheelchair with complaints of Altered jr8 Mental Status. 12:52 The patient presents with agitation, confusion. Onset: The symptoms/episode jr8 began/occurred acutely, today. Possible causes: unknown. Associated signs and symptoms: The patient has no apparent associated signs or symptoms. Current symptoms: In the emergency department the patient's symptoms are unchanged from the initial presentation. Patient's baseline: Neuro: alert and fully oriented, Motor: no deficits, Ambulation: walks without assistance, Speech: normal. It is unknown whether or not the patient has had similar symptoms in the past. The patient has been recently seen by a physician: with different complaint(s). Patient had just been seen and let go from our wound healing center here. Stated that he was completely normal at that time. Friend stated that while in there vehicle patient became red and stiffened up. Has been altered since then. Patient continues to be altered and aggressive/combative in ED. Patient does have seizure history . Historical: - Allergies: 11:43 NKDA; sg - Home Meds: 11:43 acetic acid topical [Active]; amlodipine 10 mg tab 1 tab once daily [Active]; aspirin sg 81 mg Oral chew 1 tab once daily [Active]; atorvastatin 80 mg Oral tab 1 tab once daily [Active]; Centrum Oral [Active]; clopidogrel 75 mg Oral tab 1 tab once daily [Active]; gabapentin 100 mg Oral cap 2 caps 3 times per day [Active]; ibuprofen 200 mg Oral tab 2 tabs every 4-6 hours [Active]; lisinopril 10 mg Oral tab 1 tab once daily [Active]; naproxen sodium 220 mg Oral cap [Active]; Santyl 250 unit/gram Topical oint once daily [Active]; VITAMIN B1 100 MG DAILY [Active]; - PMHx: 11:43 CHF; COPD; CVA; Myocardial infarction; PVD; Seizures; sg - PSHx: 11:43 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 - Social history:: Smoking status: Patient uses tobacco products, unknown amount. - Ebola Screening: : Patient negative for fever greater than or equal to 101.5 degrees Fahrenheit, and additional compatible Ebola Virus Disease symptoms Patient denies exposure to infectious person Patient denies travel to an Ebola-affected area in the 21 days before illness onset No symptoms or risks identified at this time. ROS: 12:52 Unable to obtain ROS due to altered mental status. jr8 Exam: 12:52 Eyes: Pupils equal round and reactive to light, extra-ocular motions intact. Lids and jr8 lashes normal. Conjunctiva and sclera are non-icteric and not injected. Cornea within normal limits. Periorbital areas with no swelling, redness, or edema. ENT: Nares patent. No nasal discharge, no septal abnormalities noted. Tympanic membranes are normal and external auditory canals are clear. Oropharynx with no redness, swelling, or masses, exudates, or evidence of obstruction, uvula midline. Mucous membranes moist. Neck: Trachea midline, no thyromegaly or masses palpated, and no cervical lymphadenopathy. Supple, full range of motion without nuchal rigidity, or vertebral point tenderness. No Meningismus. Cardiovascular: Sinus Tachycardia with a normal S1 and S2. No gallops, murmurs, or rubs. Normal PMI, no JVD. No pulse deficits. Respiratory: Lungs have equal breath sounds bilaterally, clear to auscultation and percussion. No rales, rhonchi or wheezes noted. Tachypneic with increased work of breathing noted Abdomen/GI: Soft with normal bowel sounds. No distension or tympany. No guarding or rebound. Back: Full range of motion. Skin: Warm, and moist with normal turgor. Normal color with no rashes, no lesions, and no evidence of cellulitis. MS/ Extremity: Pulses equal, no cyanosis. Neurovascular intact. Full, normal range of motion. 12:52 Neuro: Orientation: Not oriented to person, place, time, situation, Mentation: confused, Memory: unable to test, Cranial nerves: unable to test, Cerebellar function: unable to test, Motor: moves all fours, strength is 5/5 in all extremities, Sensation: no obvious gross deficits, Gait: not tested. Abnormal movements: there are no abnormal movements. Vital Signs: 10:45 Pulse 155; sv 11:15 BP 148 / 84; Pulse 104; Resp 27; Pulse Ox 95% on R/A; dh3 11:15 Temp 98.8; hb 11:53 BP 165 / 92; Pulse 103; Resp 14; Pulse Ox 99% on R/A; sv 13:00 BP 178 / 92; Pulse 95; Resp 13; Pulse Ox 99% ; sv 14:15 BP 166 / 90; Pulse 97; Resp 16; Pulse Ox 99% ; sv 10:45 Pt uncooperative, aggressive, and combative at this time. sv [place] Coma Score: 12:52 Eye Response: spontaneous(4). Verbal Response: confused(4). Motor Response: obeys jr8 commands(6). Total: 14. MDM: 11:10 Patient medically screened. jr8 13:13 Data reviewed: vital signs, nurses notes, lab test result(s), EKG, radiologic studies, jr8 CT scan, plain films. Data interpreted: Pulse oximetry: on room air is 99 %. Interpretation: normal. Counseling: I had a detailed discussion with the patient and/or guardian regarding: the historical points, exam findings, and any diagnostic results supporting the discharge/admit diagnosis, lab results, radiology results. ED course: Patient now alert and oriented to person, place, time, event. No longer altered. Has no complaints currently and feels back to normal. Patient more then likely had a seizure with prolonged postictal state. Will recheck his labs to insure they are trending back to normal . 14:03 ED course: labs are markedly better after fluids. Patient without seizures and still at jr8 baseline. Patient is wanting to go home and f/u. Could not convince him to stay for further evaluation and observation. Patient and friend know to come back if anything were to change or worsen or if he were to have another episode . 03/21 11:11 Order name: Basic Metabolic Panel; Complete Time: 12: jr8 03/21 11:11 Order name: CBC with Diff; Complete Time: 12:52 jr8 03/21 11:11 Order name: LFT's; Complete Time: 12:32 jr8 03/21 11:11 Order name: Magnesium; Complete Time: 12:32 jr8 03/21 11:11 Order name: NT PRO-BNP; Complete Time: 12:32 jr8 03/21 11:11 Order name: PT-INR; Complete Time: 12:24 [facility] 03/21 11:11 Order name: Troponin (emerg Dept Use Only); Complete Time: 12:32 [facility] 03/21 11:11 Order name: Acetaminophen; Complete Time: 12:32 [facility] 03/21 11:11 Order name: ETOH Level; Complete Time: 11:50 [facility] 03/21 11:11 Order name: Ptt, Activated; Complete Time: 12:24 [facility] 03/21 11:11 Order name: Salicylate; Complete Time: 11:45 [facility] 03/21 11:11 Order name: Urine Drug Screen; Complete Time: 11:52 [facility] 03/21 11:11 Order name: AMMONIA; Complete Time: 12:02 [facility] 03/21 11:11 Order name: Lactate; Complete Time: 11:59 [facility] 03/21 11:11 Order name: CT Head Brain wo Cont; Complete Time: 11:45 [facility] 03/21 11:11 Order name: XRAY Chest (1 view); Complete Time: 12:24 [facility] 03/21 11:11 Order name: EKG; Complete Time: 11:12 [facility] 03/21 11:29 Order name: Urine Dipstick--Ancillary (enter results); Complete Time: 13:12 03/21 11:33 Order name: ABG [facility] 03/21 11:44 Order name: CBC Smear Scan; Complete Time: 12:52 [facility] 03/21 12:03 Order name: ABG Arterial Blood Gas; Complete Time: 12:24 [facility] 03/21 13:41 Order name: Lactate; Complete Time: 14:11 [facility] 03/21 13:41 Order name: Basic Metabolic Panel; Complete Time: 14:02 [facility] 03/21 11:11 Order name: Cardiac monitoring; Complete Time: 11:27 [facility] 03/21 11:11 Order name: EKG - Nurse/Tech; Complete Time: 11:27 [facility] 03/21 11:11 Order name: IV Saline Lock; Complete Time: 11:40 [facility] 03/21 11:11 Order name: Labs collected and sent; Complete Time: 11:27 [facility] 03/21 11:11 Order name: O2 Per Protocol; Complete Time: 11:27 [facility] 03/21 11:11 Order name: O2 Sat Monitoring; Complete Time: 11:27 jr8 03/21 11:53 Order name: Restraint:Violent/Self Destructive (Adult:18yo or >); Complete Time: 11:53 sg 03/21 13:33 Order name: Diet Heart Healthy; Complete Time: 13:40 sv Administered Medications: 11:00 Drug: Ativan 2 mg Route: IM; Site: right vastus lateralis; sg 12:05 Follow up: Response: No adverse reaction sv 11:10 Drug: Versed 3 mg Route: IM; Site: right vastus lateralis; sg 12:05 Follow up: Response: No adverse reaction sv 11:39 Not Given (Other Intervention Used): Ativan 2 mg IVP once sg 11:40 Drug: NS 0.9% 1000 ml Route: IV; Rate: 1000 ml; Site: right forearm; sv 13:34 Follow up: Response: No adverse reaction; IV Status: Completed infusion; IV Intake: sv 1000ml 12:21 Drug: NS 0.9% 1000 ml Route: IV; Rate: 1000 ml; Site: right forearm; sv 13:33 Follow up: Response: No adverse reaction; IV Status: Completed infusion; IV Intake: sv 1000ml Point of Care Testing: Blood Glucose: 11:20 Blood Glucose: 118 mg/dL; sg Ranges: Critical Glucose Levels:Adult <50 mg/dl or >400 mg/dl <40 mg/dl or >180 mg/dl Disposition: 16:07 Co-signature as Attending Physician, German Guerin MD. rn Disposition: 03/21/18 14:12 Discharged to Home. Impression: Seizure. - Condition is Stable. - Discharge Instructions: Nonepileptic Seizures, Seizure, Adult. - Medication Reconciliation Form, Thank You Letter, Antibiotic Education, Prescription Opioid Use form. - Follow up: Anibal Escobar MD; When: 1 - 2 days; Reason: Recheck today's complaints, Continuance of care, Re-evaluation by your physician. - Problem is new. - Symptoms have improved. Signatures: Dispatcher [employer] Lata Cody RN RN Harish Marcelino RN RN sg Nieto, Roman, MD MD rn Roszak, Josh, PA PA jr8 Corrections: (The following items were deleted from the chart) 12:59 12:52 Patient had just been seen and let go from our wound healing center here. Stated jr8 that he was completely normal at that time. Friend stated that while in there vehicle patient became red and stiffened up. Has been altered since then. Patient continues to be altered and aggressive/combative in ED . jr8 14:14 14:03 ED course: labs are markedly better after fluids. Patient without seizures and jr8 still at baseline. Patient is wanting to go home and f/u. Could not convince him to stay for further evaluation and observation . jr8 14:28 14:12 03/21/2018 14:12 Discharged to Home. Impression: Seizure. Condition is Stable. sv Forms are Medication Reconciliation Form, Thank You Letter, Antibiotic Education, Prescription Opioid Use. Follow up: Anibal Escobar; When: 1 - 2 days; Reason: Recheck today's complaints, Continuance of care, Re-evaluation by your physician. Problem is new. Symptoms have improved. jr8
[2018-03-21 14:56] VITALS: TEMP 98.8
[2018-03-21 14:57] VITALS: O2SAT 99
[2018-03-21 15:00] VITALS: BP 166/90
--- NOTE | 2018-03-22 07:31 | EKG ---
Test Date: 2018-03-21 Test Time: 11:08:26 Freight Sorter: SHADI MEASUREMENT RESULTS: Intervals: Rate: 109 [place]: 140 QRSD: 100 QT: 336 QTc: 452 [place]: P: 82 [place]: 140 QRS: 48 T: 91 INTERPRETIVE STATEMENTS: Sinus tachycardia ST depression, consider subendocardial injury Abnormal ECG Compared to ECG 02/17/2018 20:16:34 ST (T wave) deviation now present Sinus rhythm no longer present Electronically Signed On 03-22-18 07:27:59 CDT by Bill Clark
== END 2018-03-21 14:28 | disposition home or self-care (01) ==
LOC: ER 10:49
DX: G40.909 Epilepsy, unspecified, not intractable, without status epilepticus (principal); J44.9 Chronic obstructive pulmonary disease, unspecified; I50.9 Heart failure, unspecified; I25.2 Old myocardial infarction; Z79.82 Long term (current) use of aspirin; Z86.73 Personal history of transient ischemic attack (TIA), and cerebral infarction without residual deficits
CPT/HCPCS: 36415; 51702; 70450; 71045; 80048 ×2; 80076; 80307 ×8; 80320; 80329 ×2; 81003; 82140; 82805; 82962; 83605 ×2; 83735; 83880; 84484; 85025; 85610; 85730; 93005; 96360; 96361; 96372; 99285; J2250; J7030 ×2; J3486

== ENCOUNTER 2018-05-01 13:19 | Emergency (ER) | payer OTHER ==
--- OUTSIDE RECORDS SUMMARY | 2018-05-01 13:21 | XMS REPORT | Clinical Summary ---
:1965 Author Organization [employer] [id number] [facility] [place] [address] Care Team Providers Name Role Phone Unavailable Primary Care Provider Unavailable Allergies Active Allergy Reactions Severity Noted Date Comments Morphine 04/16/2017 Medications Medication Sig Dispensed Refills Start Date End Date Status benzocaine (ORAJEL) Use as directed 9.45 g 0 04/21/2017 Active 7.5 % oral gel in the mouth or throat 3 (three) times daily as needed for Pain. multivitamin Take 1 tablet 30 tablet 0 04/20/2017 05/20/2017 (THERAGRAN) tablet by mouth daily for 30 days. folic acid (FOLVITE) Take 1 tablet 30 tablet 0 04/20/2017 05/20/2017 1 MG tablet (1 mg total) by mouth daily for 30 days. levETIRAcetam Take 1 tablet 60 tablet 0 04/19/2017 05/19/2017 (KEPPRA) 500 MG (500 mg total) tablet by mouth 2 (two) times daily for 30 days New seizure medicine. amLODIPine (NORVASC) Take 1 tablet 30 tablet 0 04/19/2017 05/19/2017 10 MG tablet (10 mg total) by mouth daily for 30 days. Lactobacillus Take 1 tablet 60 tablet 0 04/21/2017 05/21/2017 acidoph-L.bulgar by mouth 2 (FLORANEX) 1 million (two) times cell Tab per tablet daily for 30 days For diarrhea. loperamide (IMODIUM) Take 1 capsule 30 capsule 0 04/21/2017 05/01/2017 2 mg capsule (2 mg total) by mouth 4 (four) times daily as needed for Diarrhea (max 16 mg per day) for up to 10 days. sodium bicarbonate Take 2 tablets 180 tablet 0 04/21/2017 05/21/2017 650 MG tablet (1,300 mg total) by mouth 3 (three) times daily for 30 days To treat acid level. Active Problems Problem Noted Date Metabolic acidosis 04/20/2017 H/O ETOH abuse 04/17/2017 Acute kidney injury 04/17/2017 Hypertension, essential 04/17/2017 Leukocytosis 04/17/2017 Tongue laceration 04/17/2017 Status epilepticus 04/16/2017 Social History Tobacco Use Types Packs/Day Years Used Date Current Every Day Smoker 1 Smokeless Tobacco: Current User Tobacco Cessation: Ready to Quit: No; Counseling Given: Yes Sex Assigned at Date Recorded Not on file Job Start Date Occupation Industry Not on file Not on file Not on file Travel History Travel Start Travel End No recent travel history available. Last Filed Vital Signs Not on file Plan of Treatment Not on file Results Not on fileafter 04/30/2017 Insurance Payer Benefit Plan / Subscriber ID Type Phone Address Group [employer] - [employer] MED[employer]ARE xxxxxxxx [facility] [phone] MEDICARE [id number] [place] [address]
--- OUTSIDE RECORDS SUMMARY | 2018-05-01 13:27 | XMS REPORT | Continuity of Care Document ---
:1965 Author Organization Interface Problems Problem Status Onset Classification Date Comments Source Date Reported ANEMIA Active 04/04/20 The 16 [facility] Discharge 03/14/20 03/17/2016 The Diagnosis: Acute 16 [facility] on chronic renal failure Discharge 03/14/20 03/17/2016 The Diagnosis: Anemia 16 [facility] Discharge 03/14/20 03/17/2016 The Diagnosis: 16 [facility] Post-operative pain Discharge 03/14/20 03/17/2016 The Diagnosis: Acute 16 [facility] hypokalemia OTHER Active 03/13/20 The 16 [facility] FOOT GANGRENE Active 01/31/20 The 16 [facility] LEFT FOOT SORES Active 01/31/20 The 16 [facility] Discharge 02/17/20 02/19/2015 The Diagnosis: 15 [facility] Hyperlipidemia Discharge 02/17/20 02/19/2015 The Diagnosis: 15 [facility] Hypertension Discharge 02/17/20 02/19/2015 The Diagnosis: Angina 15 [facility] pectoris CHEST PAIN Active 02/16/20 The 15 [facility] CP Active 02/16/20 The 15 [facility] Discharge 02/10/20 02/12/2015 The Diagnosis: Wrist 15 [facility] sprain LEFT WRIST PAIN Active 02/10/20 The 15 [facility] Discharge 01/24/20 01/26/2015 The Diagnosis: 15 [facility] Epileptic seizure, generalized Discharge 01/24/20 01/26/2015 The Diagnosis: 15 [facility] Cerebral seizure AMS Active 01/24/20 The 15 [facility] WOUND INFECTION V Active 10/21/19 The NECFAS;CHRONIC 14 [facility] OSTEOMY Acute Active Problem 04/08/2016 The osteomyelitis [facility] Bronchitis Active Problem 04/08/2016 [facility] CHF - Congestive Active Problem 04/08/2016 The heart failure [facility] COPD Active Problem 04/08/2016 [facility] HTN (<span Active Problem 04/08/2016 The ID="[id number]"> [facility] Confirmed</span>) Nose bleed Active Problem 04/08/2016 [facility] Seizure Active Problem 04/08/2016 [facility] H/O candidiasis Active Problem 04/08/2016 [facility] H/O amputation of Active Problem 04/08/2016 The lesser toe [facility] Hx of peripheral Active Problem 04/08/2016 The vascular disease [facility] BPH (<span Active Problem 04/08/2016 The ID="[id number]" [facility] >Confirmed</span> ) CELLULITIS OF Active The FOOT [facility] AC Active [facility] The OSTEOMYELITIS-UNS [facility] PEC CHEST PAIN NOS Active [facility] GANGRENE, NOT Active The ELSEWHERE [facility] CLASSIFIED ANEMIA, Active The UNSPECIFIED [facility] Medications Medication Details Route Status Patient Ordering Order Source Instructions Provider Date Sodium Chloride IVPB, 150 Active The 0.9% IV ml/hr, PRN, 2015 [facility] Start date: 04/05/16 8:00:00 ASSISTANT INVENTORY MANAGER, Duration: 30, 1,000 ml EPINEPHrine 0.5 mg, 0.5 Active The mL, Route: 2015 [facility] IVP, Drug form: INJ, PRN, PRN Other -See Comment, Start date: 04/05/16 7:22:00 ASSISTANT INVENTORY MANAGER, Duration: 30 day, Stop date: 05/05/16 7:21:00 CSTNotes: MEDICATION WASTE Product Size: 1 mg Product Wasted: ___ mg Solu-CORTEF 100 mg, 2 mL, Active The Route: IVP2015 [place] Drug form: PDR/INJ, PRN, PRN Other -See Comment, Start date: 04/05/16 7:22:00 ASSISTANT INVENTORY MANAGER, Duration: 30 day, Stop date: 05/05/16 7:21:00 CSTNotes: (Same as: Solu-CORTEF) Benadryl 50 mg, 1 mL, Active The Route: IVP, 2015 [place] Drug form: INJ, PRN, PRN Other -See Comment, Start date: 04/05/16 7:22:00 ASSISTANT INVENTORY MANAGER, Duration: 30 day, Stop date: 05/05/16 7:21:00 CSTNotes: (Same as: Benadryl) Sodium Chloride IV, 0 ml/hr, Active The 0.9% IV PRN, PRN Blood 2015 [facility] Transfusion, Start date: 04/05/16 7:21:00 ASSISTANT INVENTORY MANAGER, Duration: 30, 250 ml heparin flush 500 unit, 5 Active The mL, Route: 2015 [place] IVP, Drug form: SOLN, PRN, PRN Line Flush, Start date: 04/05/16 7:21:00 ASSISTANT INVENTORY MANAGER, Duration: 30 day, Stop date: 05/05/16 7:20:00 CSTNotes: (Same as: Heparin Lock Flush) BD Normal Saline 20 mL, Route: Active The Flush IVP, Drug 2015 [place] Form: INJ, PRN, PRN Line Flush, Start date: 04/05/16 7:21:00 ASSISTANT INVENTORY MANAGER, Duration: 30 day, Stop date: 05/05/16 7:20:00 CSTNotes: (Same as: BD Posiflush) Benadryl 25 mg, 0.5 mL, Active The Route: IVP, 2015 [place] Drug form: INJ, Before Transfusion, PRN Blood Transfusion, Start date: 04/05/16 7:21:00 ASSISTANT INVENTORY MANAGER, Duration: 30 day, Stop date: 05/05/16 7:20:00 CSTNotes: (Same as: Benadryl) Tylenol 650 mg, 2 tab, Active The Route: PO, 2015 [place] Drug form: TAB, Before Transfusion, PRN Blood Transfusion, Start date: 04/05/16 7:20:00 ASSISTANT INVENTORY MANAGER, Duration: 30 day, Stop date: 05/05/16 7:19:00 CSTNotes: Do not exceed 4 gm/day. (Same as: Tylenol) Acetaminophen 325 1 tab, Route: Inactive The MG / Hydrocodone PO, Drug Form: 2015 [facility] Bitartrate 5 MG TAB, Dosing Oral Tablet [[place] Weight 98.636, 5/325] kg, ONCE, STAT, Start date: 03/14/16 6:34:00 CDT, Stop date: 03/14/16 6:34:00 CDTNotes: (Same as: [place] 325/5) Do not exceed 4gm/day of acetaminophen. Acetaminophen 300 1 tab, PO, No Longer The MG / Codeine Q4H, PRN Pain, Active 2015 [place] Phosphate 30 MG X 2 day, # 12 Oral Tablet tab, 0 [Tylenol with Refill(s) Codeine #3] Zofran 4 mg, 2 mL, No Longer The Route: IVP, Active 2015 [facility] Drug form: INJ, ONCE, Dosing Weight 98.636, kg, Priority: STAT, Start date: 03/13/16 23:18:00 CDT, Stop date: 03/13/16 23:18:00 CDTNotes: (Same as: Zofran) MEDICATION WASTE Product Size: 4 mg Product Wasted: ___ mg Dilaudid 0.5 mg, 0.5 No Longer The mL, Route: Active 2015 [facility] IVP, Drug form: INJ, ONCE, Dosing Weight 98.636, kg, Priority: STAT, Start date: 03/13/16 23:18:00 CDT, Stop date: 03/13/16 23:18:00 CDTNotes: Same as: Dilaudid Sodium Chloride 500 mL, 500 No Longer The 0.154 MEQ/ML ml/hr, Infuse Active 2015 [facility] Injectable Over: 1 hr, Solution Route: IV, 500, Drug form: INJ, ONCE, Priority: STAT, Dosing Weight 98.636 kg, Start date: 03/13/16 23:18:00 CDT, Duration: 1 doses or times, Stop date: 03/13/16 23:18:00 CDT Oxycodone 15 mg=3 tab, Active The Hydrochloride 5 MG PO, Q4H, PRN 2015 [place] Oral Tablet Pain Score 7-10, 0 Refill(s) Oxycodone 15 mg, 3 tab, Inactive The Hydrochloride 5 MG Route: PO, 2015 [facility] Oral Tablet Drug form: TAB, Q4H, Dosing Weight 96.023, kg, PRN Pain Score 7-10, Start date: 02/18/16 8:43:00 CDT, Duration: 30 day, Stop date: 03/19/16 8:42:00 CDTNotes: (Same as: Roxicodone) Ceftriaxone 2 gm, Route: No Longer The IVPB, [id number], Active 2015 [facility] Dosing Weight 96.023, kg, Start date: 02/17/16 15:00:00 CDT, Duration: 30 day, Stop date: 03/17/16 15:00:00 CDTNotes: (Same As: Rocephin). Use with 100 mL NS and infuse over 30 min MEDICATION WASTE Product Size: 2000 mg Product Wasted: ___ mg Albuterol 0.83 NEB, PRN, PRN Active The MG/ML Inhalant Respiratory 2015 [facility] Solution Protocol, 0 Refill(s) chlorhexidine 1 appl, BATHE, Active The gluconate 40 MG/ML Q-M-W-F, 0 2015 [facility] Medicated Liquid Refill(s) Soap tamsulosin 0.4 mg 0.4 mg=1 cap, Active The oral capsule PO, After 2015 [facility] Dinner, 0 Refill(s) fluconazole 100 mg 200 mg=2 tab, Active The oral tablet PO, [id number], 0 2015 [facility] Refill(s) pantoprazole 40 mg 40 mg=1 tab, Active The oral enteric PO, Before 2015 [facility] coated tablet Breakfast, 0 Refill(s) Acetaminophen 325 1 tab, PO, Active The MG / Hydrocodone Q4H, PRN Pain 2015 [place] Bitartrate 5 MG Score 1-3, 0 Oral Tablet Refill(s) cefTRIAXone + 2 gm, Route: No Longer The sodium chloride IVPB, [id number], Active 2015 [place] 0.9% INJ 100 mL Dosing Weight 96.023, kg, Start date: 02/15/16 18:00:00 CDT, Duration: 2 day, Stop date: 02/16/16 18:00:00 CDTNotes: (Same As: Rocephin). Use with 100 mL NS and infuse over 30 min MEDICATION WASTE Product Size: 2000 mg Product Wasted: ___ mg Flomax 0.4 mg, 1 cap, No Longer The Route: PO, Active 2015 [place] Drug form: CAP, After Dinner, Dosing Weight [...] No Longer The Route: PO, Active 2015 [place] Drug form: TAB, [id number], Dosing Weight 96.023, kg, Start date: 02/12/16 16:00:00 CDT, Duration: 30 day, Stop date: 03/12/16 16:00:00 CDTNotes: (Same as: Diflucan) Dilaudid 1.5 mg, 0.75 No Longer The mL, Route: Active 2015 [facility] IVP, Drug form: INJ, Q4H, Dosing Weight 96.023, kg, PRN Pain Score 7-10, Start date: 02/12/16 14:19:00 CDT, Stop date: 03/13/16 14:18:00 CDTNotes: Same as: Dilaudid gabapentin 600 mg, 2 cap, No Longer The Route: PO, Active 2015 [place] Drug form: CAP, TID, Dosing Weight 97.273, kg, Start date: 02/12/16 13:00:00 CDT, Duration: 30 day, Stop date: 03/13/16 9:00:00 CDTNotes: (Same as: Neurontin) Naloxone 0.4 mg, 1 mL, Inactive The Route: IVP, 2015 [place] Drug form: INJ, Q2MIN, Dosing Weight 96.023, kg, PRN Narcotic Reversal, Start date: 02/12/16 9:59:00 CDT, Duration: 8 doses or times, Stop date: Limited # of timesNotes: Same as Narcan Lorazepam 0.5 mg, 0.25 Inactive The mL, Route: 2015 [facility] IVP, Drug form: INJ, Q20Min, Dosing Weight 96.023, kg, PRN Anxiety, Start date: 02/12/16 9:59:00 CDT, Duration: 3 doses or times, Stop date: Limited # of timesNotes: (Same as: Ativan) Ondansetron 4 mg, Route: Inactive The IVP, ONCE, 2015 [place] Dosing Weight 96.023, kg, PRN Nausea & Vomiting, Start date: 02/12/16 9:59:00 CDT Glycopyrrolate 0.2 mg, 1 mL, Inactive The Route: IVP, 2015 [place] Drug form: INJ, Q5Min, Dosing Weight 96.023, kg, PRN Bradycardia, Start date: 02/12/16 9:59:00 CDT, Duration: 3 doses or times, Stop date: Limited # of timesNotes: (Same as: [place] Antonio) Flumazenil 0.2 mg, 2 mL, Inactive The Route: IVP, 2015 [place] Drug form: INJ, PRN, Dosing Weight 96.023, kg, PRN Benzodiazepine Reversal, Initial dose, Start date: 02/12/16 9:59:00 CDT, Duration: 30 day, Stop date: 03/13/16 9:58:00 CDTNotes: (Same as: Romazicon) Fentanyl 25 microgram, Inactive The 0.5 mL, Route: 2015 [place] IVP, Drug form: INJ, Q5Min, Dosing Weight 96.023, kg, PRN Pain Score 4-6, Start date: 02/12/16 9:59:00 CDT, Duration: 4 doses or times, Stop date: Limited # of timesNotes: (Same as: Sublimaze) Preservative free. Hydralazine 10 mg, 0.5 mL, Inactive The Route: IVP, 2015 [place] Drug form: INJ, Q20Min, Dosing Weight 96.023, kg, PRN Elevated BP, Start date: 02/12/16 9:59:00 CDT, Duration: 2 doses or times, Stop date: Limited # of timesNotes: (Same as: Apresoline) Push over 5 minutes Hydromorphone 0.5 mg, 0.5 Inactive The mL, Route: 2015 [place] IVP, Drug form: INJ, Q5Min, Dosing Weight 96.023, kg, PRN Pain Score 7-10, Start date: 02/12/16 9:59:00 CDT, Duration: 4 doses or times, Stop date: Limited # of timesNotes: Same as: Dilaudid Labetalol 10 mg, 2 mL, Inactive The Route: IVP, 2015 [place] Drug form: INJ, Q5Min, Dosing Weight 96.023, kg, PRN Elevated BP, Start date: 02/12/16 9:59:00 CDT, Duration: 5 doses or times, Stop date: Limited # of times fentaNYL (ANES) Route: IV, Inactive The Drug form: 2015 [place] INJ, ONCE, Stop date: 02/12/16 8:40:00 CDT propofol (ANES) Route: IV, Inactive The Drug form: 2015 [place] INJ, ONCE, Stop date: 02/12/16 8:40:00 CDT lidocaine (ANES) Route: IV, Inactive The Drug form: 2015 [place] INJ, ONCE, Stop date: 02/12/16 8:40:00 CDT LR 1000 mL INJ Route: IV, Inactive The (ANES) Total Volume: 2015 [place] 1,000, Start date: 02/12/16 7:55:00 CDT, Stop date: 02/12/16 8:55:00 CDT Ceftriaxone 2 gm, Route: No Longer The IVPB, [id number], Active 2015 [place] Dosing Weight 96.023, kg, Start date: 02/11/16 13:00:00 CDT, Duration: 5 day, Stop date: 02/15/16 13:00:00 CDTNotes: (Same As: Rocephin). Use with 100 mL NS and infuse over 30 min MEDICATION WASTE Product Size: 2000 mg Product Wasted: ___ mg Dilaudid 1 mg, 1 mL, No Longer The Route: IVP, Active 2015 [place] Drug form: INJ, Q6H, Dosing Weight 96.023, kg, PRN Pain Score 7-10, Start date: 02/11/16 8:37:00 CDT, Duration: 30 day, Stop date: 03/12/16 8:36:00 CDTNotes: Same as: Dilaudid vancomycin 750 mg, 150 No Longer The mL, Route: Active 2015 [facility] IVPB, Drug form: INJ, Q24H, Start date: 02/11/16 6:00:00 CDT, Duration: 30 day, Stop date: 03/11/16 6:00:00 CDTNotes: TIME CRITICAL MEDICATION Same as: Vancocin Infusion rate 2000 mg: infuse over 2.5 hours metoprolol 50 mg, 1 tab, No Longer The Route: PO, Active 2015 [place] Drug form: ERTAB, Daily, Start date: 02/10/16 9:00:00 CDT, Duration: 30 day, Stop date: 03/10/16 9:00:00 CDTNotes: (Same as: Toprol XL) May split tab, but do not crush. Alprazolam 1 MG 1 mg, 1 tab, No Longer The Oral Tablet Route: PO, Active 2015 [facility] [Xanax] Drug form: TAB, Q12H, Dosing Weight 96.023, kg, PRN Anxiety, Start date: 02/10/16 8:19:00 CDT, Duration: 30 day, Stop date: 03/11/16 8:18:00 CDTNotes: With food or milk (Same as: Xanax) vancomycin 750 mg, 150 Inactive The mL, Route: 2015 [facility] IVPB, Drug form: INJ, ONCE, Start date: 02/10/16 5:00:00 CDT, Stop date: 02/10/16 5:00:00 CDTNotes: TIME CRITICAL MEDICATION Same as: Vancocin Infusion rate 2001 mg: infuse over 2.5 hours Anoro 62.5mcg/25 Anoro No Longer The mcg 62.5mcg/25 Active 2015 [facility] mcg, 1 puff, Route: INHALATION, RBID, 02/09/16 20:00:00 CDT, Duration: 30 day, Stop date: 03/10/16 8:00:00 CDT ketOROLAC 30 mg/mL 60 mg, Route: Inactive The injectable IVP, Drug 2015 [facility] solution form: INJ, ONCE, Dosing Weight 96.023, kg, Start date: 02/09/16 17:40:00 CDT, Duration: 1 doses or times, Stop date: 02/09/16 17:40:00 CDT Vancomycin Dosing Vancomycin No Longer The per RPh Dosing per Active 2015 [facility], [facility] Drug form: MISC, Route: MISC, PRN, PRN Other -See Comment, 02/09/16 14:51:00 CDT, Duration: 30 day, Stop date: 03/10/16 14:50:00 CDT Dilaudid 1 mg, 1 mL, No Longer The Route: IVP, Active 2015 [place] Drug form: INJ, Q4H, Dosing Weight 96.023, kg, PRN Pain Score 7-10, Start date: 02/09/16 13:01:00 CDT, Duration: 30 day, Stop date: 03/10/16 13:00:00 CDTNotes: Same as: Dilaudid Sodium Chloride 500 mL, 500 Inactive The 0.154 MEQ/ML ml/hr, Infuse 2015 [facility] Injectable Over: 1 hr, Solution Route: IV, 500, Drug form: INJ, ONCE, Priority: STAT, Dosing Weight 96.023 kg, Start date: 02/09/16 12:59:00 CDT, Duration: 1 doses or times, Stop date: 02/09/16 12:59:00 CDT pantoprazole 40 mg, 1 tab, No Longer The Route: PO, Active 2015 [place] Drug form: ECTAB, Before Breakfast, Dosing Weight 96.023, kg, Start date: 02/09/16 9:00:00 CDT, Stop date: 03/09/16 7:30:00 CDTNotes: Tablet should not be chewed or crushed. (Same as: Protonix) chlorhexidine 1 appl, Route: No Longer The gluconate 40 MG/ML BATHE, Active 2015 [facility] Medicated Liquid Q-M-W-F, Drug Soap form: SOAP, Start date: 02/09/16 9:00:00 CDT, Duration: 30 day, Stop date: 03/08/16 9:00:00 CDTNotes: (Same As: Milla) Simvastatin 20 mg, 1 tab, No Longer The Route: PO, Active 2015 [place] Drug form: TAB, Bedtime, Dosing Weight 96.023, kg, Start date: 02/08/16 21:00:00 CDT, Duration: 30 day, Stop date: 03/08/16 21:00:00 CDTNotes: (Same as: Zocor) Cefuroxime 1.5 gm, Route: No Longer The IVPB, [id number], Active 2015 [place] Dosing Weight 96.023, kg, Start date: 02/08/16 21:00:00 CDT, Duration: 3 doses or times, Stop date: 02/09/16 13:00:00 CDT Neutra-Phos 2 pkt, Route: No Longer The PO, Drug Form: Active 2015 [facility] PDR/REC, Dosing Weight 96.023, kg, PRN, PRN [...] phosphate + sodium mL, Route: Active 2015 [place] chloride 0.9% 500 IVPB, Drug ml INJ [...] phosphate + sodium mL, Route: Active 2015 [place] chloride 0.9% INJ IVPB, PRN, 250 mL Dosing Weight 96.023, kg, PRN Abnormal Lab Result, Start date: 02/08/16 20:04:00 CDT, Duration: 30 day, Stop date: 03/09/16 20:03:00 CDT, FOR ICU USE ONLYNotes: (Same as: K Phosphate.) 1 mMol phoshate has 1.47 mEq potassium Infuse over 4 hours Magnesium Oxide 800 mg, 2 tab, No Longer The Route: PO, Active 2015 [place] Drug form: TAB, PRN, Dosing Weight 96.023, kg, PRN Abnormal Lab Result, FOR ICU USE ONLY, Start date: 02/08/16 20:04:00 CDT, Duration: 30 day, Stop date: 03/09/16 20:03:00 CDTNotes: (Same as: Mag-Ox 400) Magnesium oxide [id number] elemental magnesium Dose=____mg magnesium oxide (___mg elemental magnesium) Magnesium Sulfate 2 gm, 50 mL, No Longer The Route: IVPB, Active 2015 [place] Drug form: INJ, PRN, Dosing Weight 96.023, kg, PRN Abnormal Lab Result, Start date: 02/08/16 20:04:00 CDT, Duration: 30 day, Stop date: 03/09/16 20:03:00 CDT, FOR ICU USE ONLYNotes: WASTE: F/P - Sink; E - Municipal Trash Bin potassium chloride 20 mEq, 15 mL, No Longer The Route: NJ, Active 2015 [place] Drug form: LIQ, PRN, Dosing Weight 96.023, kg, PRN Abnormal Lab Result, Start date: 02/08/16 20:04:00 CDT, Duration: 30 day, Stop date: 03/09/16 20:03:00 CDT, FOR ICU USE ONLYNotes: (Same as: Potassium Chloride) sodium phosphate + 15 mmol, 5 mL, No Longer The sodium chloride Route: IVPB, Active 2015 [place] 0.9% INJ 250 mL PRN, Dosing Weight 96.023, kg, PRN Abnormal Lab Result, Start date: 02/08/16 20:04:00 CDT, Duration: 30 day, Stop date: 03/09/16 20:03:00 CDT, FOR ICU USE ONLY sodium phosphate + 45 mmol, 15 No Longer The sodium chloride mL, Route: Active 2015 [place] 0.9% 500 ml INJ IVPB, Drug 500 mL form: INJ, PRN, Dosing Weight 96.023, kg, PRN Abnormal Lab Result, Start date: 02/08/16 20:04:00 CDT, Duration: 30 day, Stop date: 03/09/16 20:03:00 CDT, FOR ICU USE ONLY Calcium Carbonate 500 mg, 1 tab, No Longer The 500 MG Chewable Route: PO, Active 2015 [place] Tablet Drug form: CHEWTAB, PRN, Dosing Weight 96.023, kg, PRN Abnormal Lab Result, FOR ICU USE ONLY, Start date: 02/08/16 20:04:00 CDT, Duration: 30 day, Stop date: 03/09/16 20:03:00 CDTNotes: (Same As: [place]) Calcium Carbonate 500 up=704 mg elemental calcium Dose= mg calcium carbonate ( mg elemental calcium) Calcium Gluconate 1 gm, 10 mL, No Longer The Route: IVPB, Active 2015 [facility] PRN, Dosing Weight 96.023, kg, PRN Abnormal Lab Result, Start date: 02/08/16 20:04:00 CDT, Duration: 30 day, Stop date: 03/09/16 20:03:00 CDT, FOR ICU USE ONLYNotes: WASTE: F/P - Sink; E - Municipal Trash Bin Albuterol 0.83 2.49 mg, 3 mL, No Longer The MG/ML Inhalant Route: NEB, Active 2015 [facility] Solution Drug form: SOLN, PRN, Dosing Weight 96.023, kg, PRN Respiratory Protocol, Start date: 02/08/16 20:04:00 CDT, Duration: 30 day, Stop date: 03/09/16 20:03:00 CDTNotes: SEE RT DOCUMENTATION (Same as: Proventil) Dextrose 50% 25 gm, 50 mL, No Longer The Syringe Route: IVP, Active 2015 [place] Drug Form: INJ, Dosing Weight 96.023, kg, PRN, PRN Blood Glucose Results, Start date: 02/08/16 20:04:00 CDT, Duration: 30 day, Stop date: 03/09/16 20:03:00 CDT Docusate 100 mg, 1 cap, No Longer The Route: PO, Active 2015 [place] Drug form: CAP, BID, Dosing Weight 96.023, kg, PRN Constipation, Start date: 02/08/16 20:04:00 CDT, Duration: 30 day, Stop date: 03/09/16 20:03:00 CDTNotes: (Same as: Colace) (Do Not Crush) Glucagon 1 mg, Route: No Longer The IM, Drug form: Active 2015 [place] PDR/INJ, PRN, Dosing Weight 96.023, kg, PRN Blood Glucose Results, Start date: 02/08/16 20:04:00 CDT, Duration: 30 day, Stop date: 03/09/16 20:03:00 CDT Acetaminophen 325 2 tab, Route: No Longer The MG / Hydrocodone PO, Drug Form: Active 2015 [facility] Bitartrate 5 MG TAB, Dosing Oral Tablet Weight 96.023, kg, Q4H, PRN Pain Score 4-6, Start date: 02/08/16 20:04:00 CDT, Duration: 30 day, Stop date: 03/09/16 20:03:00 CDTNotes: (Same as: [place] 325/5) Do not exceed 4gm/day of acetaminophen. Acetaminophen 650 mg, 2 tab, No Longer The Route: PO, Active 2015 [place] Drug form: TAB, Q4H, Dosing Weight 96.023, kg, PRN Pain 1-3/Temp > 100.4 F, Start date: 02/08/16 20:04:00 CDT, Duration: 30 day, Stop date: 03/09/16 20:03:00 CDTNotes: Do not exceed 4 gm/day. (Same as: Tylenol) D5W 1/2NS + KCL 1,000 mL, No Longer The 20mEq/L 1000ml Rate: 50 Active 2015 [facility] (Premix) 1,000 mL ml/hr, Infuse over: 20 hr, Route: IV, Dosing Weight 96.023 kg, Total Volume: 1,000, Start date: 02/08/16 20:04:00 CDT, Duration: 30 day, Stop date: 03/09/16 20:03:00 CDTNotes: PREMIX IV - Do Not Alter WASTE: F/P - Sink; E - Municipal Trash Bin Ondansetron 4 mg, 2 mL, Inactive The Route: IVP, 2015 [place] Drug form: INJ, ONCE, Dosing Weight 96.023, kg, PRN Nausea & Vomiting, Start date: 02/08/16 9:59:00 CDTNotes: (Same as: Zofran) MEDICATION WASTE Product Size: 4 mg Product Wasted: ___ mg Promethazine 6.25 mg, 25 Inactive The mL, Route: 2015 [place] IVPB, Drug form: SOLN, ONCE, Dosing Weight 96.023, kg, PRN Nausea & Vomiting, Start date: 02/08/16 9:59:00 CDT Flumazenil 0.2 mg, 2 mL, Inactive The Route: IV2015 [place] Drug form: INJ, PRN, Dosing Weight 96.023, kg, PRN Benzodiazepine Reversal, Initial dose, Start date: 02/08/16 9:59:00 CDT, Duration: 30 day, Stop date: 03/09/16 9:58:00 CDTNotes: (Same as: Romazicon) Naloxone 0.4 mg, 1 mL, Inactive The Route: IVP, 2015 [place] Drug form: INJ, Q2MIN, Dosing Weight 96.023, kg, PRN Narcotic Reversal, Start date: 02/08/16 9:59:00 CDT, Duration: 8 doses or times, Stop date: Limited # of timesNotes: Same as Narcan Fentanyl 50 microgram, Inactive The 1 mL, Route: 2015 [place] IVP, Drug form: INJ, Q5Min, Dosing Weight 96.023, kg, PRN Pain Score 7-10, Start date: 02/08/16 9:59:00 CDT, Duration: 2 doses or times, Stop date: Limited # of timesNotes: (Same as: Sublimaze) Preservative free. Hydromorphone 1 mg, 1 mL, Inactive The Route: IVP, 2015 [place] Drug form: INJ, Q5Min, Dosing Weight 96.023, kg, PRN Pain Score 7-10, Start date: 02/08/16 9:59:00 CDT, Duration: 4 doses or times, Stop date: Limited # of timesNotes: Same as: Dilaudid Labetalol 10 mg, 2 mL, Inactive The Route: IVP, 2015 [place] Drug form: INJ, Q5Min, Dosing Weight 96.023, kg, PRN Elevated BP, Start date: 02/08/16 9:59:00 CDT, Duration: 5 doses or times, Stop date: Limited # of times ondansetron (ANES) Route: IV, Inactive The Drug form: 2015 [place] INJ, ONCE, Stop date: 02/08/16 9:40:00 CDT hydromorphone Route: IV, Inactive The (ANES) Drug form: 2015 [place] INJ, ONCE, Stop date: 02/08/16 9:15:00 CDT LR 1000 mL INJ Route: IV, Inactive The (ANES) Total Volume: 2015 [place] 1,000, Start date: 02/08/16 9:08:00 CDT, Stop date: 02/08/16 10:08:00 CDT heparin (ANES) Route: IV, Inactive The Drug form: 2015 [place] INJ, ONCE, Stop date: 02/08/16 8:55:00 CDT fentaNYL (ANES) Route: IV, Inactive The Drug form: 2015 [place] INJ, ONCE, Stop date: 02/08/16 8:40:00 CDT propofol (ANES) Route: IV, Inactive The Drug form: 2015 [place] INJ, ONCE, Stop date: 02/08/16 8:40:00 CDT lidocaine (ANES) Route: IV, Inactive The Drug form: [place] INJ, ONCE, Stop date: 02/08/16 8:40:00 CDT midazolam (ANES) Route: IV, Inactive The Drug form: [place] SOLN, ONCE, Stop date: 02/08/16 8:40:00 CDT rocuronium (ANES) Route: IV, Inactive The Drug form: 2015 [place] INJ, ONCE, Stop date: 02/08/16 8:40:00 CDT piperacillin-tazob IV, ONCE Inactive The actam (ANES) [place] famotidine (ANES) Route: IV, Inactive The Drug form: 2015 [place] INJ, ONCE, Stop date: 02/08/16 8:25:00 CDT [...] No Longer The Route: PO, Active 2015 [place] Drug form: TAB, Q4H, PRN Pain 1-3/Temp > 100.4 F, Start date: 02/07/16 10:35:00 CDT, Duration: 30 day, Stop date: 03/08/16 10:34:00 CDTNotes: (Same as: Roxicodone) oxyCODONE 10 mg 15 mg, Route: Inactive The extended release PO, Drug form: 2015 [place] ERTAB, Q6H, Start date: 02/05/16 18:00:00 CDT, Duration: 30 day, Stop date: 03/06/16 12:00:00 CDT Roxicodone 15 mg, 3 tab, No Longer The Route: PO, Active 2015 [facility] Drug form: TAB, Q6Hnow, Start date: 02/05/16 15:21:00 CDT, Stop date: 03/06/16 11:00:00 CDTNotes: (Same as: Roxicodone) Dilaudid 2 mg, 1 mL, No Longer The Route: IV, Active 2015 [facility] Drug form: INJ, Q2H, Dosing Weight 97.273, kg, PRN Pain Score 7-10, Start date: 02/05/16 15:04:00 CDT, Duration: 30 day, Stop date: 03/06/16 15:03:00 CDTNotes: Same as: Dilaudid sodium chloride 1,000 mL, No Longer The 0.9% 1000 ml INJ Rate: 50 Active 2015 [facility] 1,000 mL ml/hr, Infuse over: 20 hr, Route: IV, Dosing Weight 97.273 kg, Total Volume: 1,000, Start date: 02/04/16 11:14:00 CDT, Stop date: 03/05/16 11:13:00 CDT vancomycin 750 mg, 150 No Longer The mL, Route: Active 2015 [facility] IVPB, Drug form: INJ, [id number], Start date: 02/02/16 15:00:00 CDT, Duration: 30 day, Stop date: 03/03/16 3:00:00 CDTNotes: TIME CRITICAL MEDICATION Same as: Vancocin Infusion rate 2000 mg: infuse over 2.5 hours atorvastatin 40 mg, 1 tab, No Longer The Route: PO, Active [address] [place] [address] Drug form: TAB, Bedtime, Dosing Weight 97.273, kg, Start date: 02/01/16 21:00:00 CDT, Duration: 30 day, Stop date: 03/01/16 21:00:00 CDTNotes: (Same as: Lipitor) Vancomycin 1 ea, Route: Inactive The MISC, Dosing 2015 [facility] Weight 97.273, kg, ONCALL, Start date: 02/01/16 15:00:00 CDT, Duration: 1 doses or times, Pharmacy to dose Acetaminophen 325 1 tab, Route: No Longer The MG / Hydrocodone PO, Drug Form: Active 2015 [facility] Bitartrate 10 MG TAB, Dosing Oral Tablet [[place] Weight 97.273, 10/325] kg, Q6H, PRN Pain Score 4-6, Start date: 02/01/16 13:10:00 CDT, Duration: 30 day, Stop date: 03/02/16 13:09:00 CDTNotes: Do not exceed 4gm/day of acetaminophen. (Same as: [place] 325/10) Tylenol 650 mg, 2 tab, No Longer The Route: PO, Active 2015 [facility] Drug form: TAB, Q6H, Dosing Weight 97.273, kg, PRN Pain Score 1-3, Start date: 02/01/16 13:02:00 CDT, Duration: 30 day, Stop date: 03/02/16 13:01:00 CDTNotes: Do not exceed 4 gm/day. (Same as: Tylenol) Vancomycin 1,000 mg, No Longer The Route: IVPB, Active 2015 [facility] [id number], Dosing Weight 97.273, kg, Start date: 02/01/16 13:00:00 CDT, Stop date: 03/02/16 1:00:00 CDTNotes: TIME CRITICAL MEDICATION (Same As: Vancocin) Infusion rate 2001 mg: infuse over 2.5 hours MEDICATION WASTE Product Size: 1000 mg Product Wasted: ___ mg Zosyn 3.375 gm, No Longer The Route: IVPB, Active 2015 [facility] [id number], Dosing Weight 97.273, kg, CrCl Notes: (Same as: Zosyn) Dosing based on Piperacillin component MEDICATION WASTE Product Size: 3375 mg Product Wasted: ___ mg Lisinopril 5 mg, 1 tab, No Longer The Route: PO, Active 2015 [facility] Drug form: TAB, Daily, Dosing Weight 97.273, [...] Tartrate 100 MG Route: PO, Active 2015 [facility] Extended Release Drug form: Tablet [Toprol] ERTAB, Daily, Start date: 02/01/16 9:00:00 CDT, Duration: 30 day, Stop date: 03/01/16 9:00:00 CDTNotes: (Same as: Toprol XL) May split tab, but do not crush. Alprazolam 2 MG 2 mg, 2 tab, No Longer The Oral Tablet Route: PO, Active 2015 [facility] Drug form: TAB, BID, Dosing Weight 97.273, kg, PRN Anxiety, Start date: 02/01/16 8:23:00 CDT, Duration: 30 day, Stop date: 03/02/16 8:22:00 CDTNotes: With food or milk (Same as: Xanax) Albuterol 0.833 3 ml, Route: No Longer The MG/ML / NEB, Drug Active 2015 [facility] Ipratropium Form: SOLN, [place] 0.167 Dosing Weight MG/ML Inhalant 97.273, kg, Solution PRN, PRN Respiratory Protocol, Start date: 02/01/16 8:22:00 CDT, Duration: 30 day, Stop date: 03/02/16 8:21:00 CDTNotes: (Same as: Duoneb) Zofran 4 mg, 2 mL, No Longer The Route: IVP, Active 2015 [facility] Drug form: INJ, Q6H, Dosing Weight 97.273, kg, PRN Nausea, Start date: 02/01/16 1:24:00 CDT, Duration: 30 day, Stop date: 03/02/16 1:23:00 CDTNotes: (Same as: Zofran) MEDICATION WASTE Product Size: 4 mg Product Wasted: ___ mg Dilaudid 2 mg, 2 mL, No Longer The Route: IVP, Active 2015 [facility] Drug form: INJ, Q4H, Dosing Weight 97.273, kg, PRN Pain Score 7-10, Start date: 02/01/16 1:23:00 CDT, Duration: 30 day, Stop date: 03/02/16 1:22:00 CDTNotes: Same as: Dilaudid Acetaminophen 300 1 tab, PO, No Longer The MG / Codeine BID, PRN pain, Active 2015 [facility] Phosphate 30 MG # 28 tab, 0 Oral Tablet Refill(s) lisinopril 10 mg 10 mg=1 tab, Active The oral tablet PO, Daily, # 2015 [facility] 30 tab, 0 Refill(s) metoprolol 100 mg=1 tab, Active The tartrate 100 mg PO, BID, # 60 2015 [facility] oral tablet tab, 0 Refill(s) Centrum Adults 1 tab, PO, Active The oral tablet Daily, 0 2015 [facility] Refill(s) doxazosin 1 mg 1 mg=1 tab, Active The oral tablet PO, Daily, # 2015 [facility] 30 tab, 0 Refill(s) atorvastatin 40 mg 40 mg=1 tab, Active The oral tablet PO, Bedtime, # 2015 [facility] 30 tab, 0 Refill(s) Anoro Ellipta 62.5 1 puff, Active The mcg-25 mcg INHALER, 2015 [facility] inhalation powder Daily, # 1 ea, 3 Refill(s) Alprazolam 2 MG 2 mg=1 tab, Active The Oral Tablet PO, BID, PRN 2015 [facility] Anxiety, # 20 tab, 0 Refill(s) Furosemide 20 MG 20 mg=1 tab, Active The Oral Tablet PO, Daily, # 2015 [facility] 30 tab, 0 Refill(s) cilostazol 100 mg 100 mg=1 tab, Active The oral tablet PO, BID, # 60 2015 [facility] tab, 0 Refill(s) Acetaminophen 650 mg, Route: Inactive The PO, Drug form: 2015 [facility] TAB, ONCE, Dosing Weight 95, kg, Priority: STAT, Start date: 01/31/16 22:28:00 CDT, Stop date: 01/31/16 22:28:00 CDT Piperacillin / 3.375 gm, Inactive The tazobactam Route: IVPB, 2015 [facility] ONCE, Dosing Weight 95, kg, Priority: STAT, Start date: 01/31/16 17:57:00 CDT, Stop date: 01/31/16 17:57:00 CDTNotes: (Same as: Zosyn) Dosing based on Piperacillin component MEDICATION WASTE Product Size: 3375 mg Product Wasted: ___ mg Vancomycin 1,000 mg, Inactive The Route: IVPB, 2015 [facility] ONCE, Dosing Weight 95, kg, Priority: STAT, Start date: 01/31/16 17:57:00 CDT, Stop date: 01/31/16 17:57:00 CDT, TIME CRITICAL MEDICATIONNote s: TIME CRITICAL MEDICATION (Same As: Vancocin) Infusion rate 2001 mg: infuse over 2.5 hours MEDICATION WASTE Product Size: 1000 mg Product Wasted: ___ mg Sodium Chloride 1,000 mL, Inactive The 0.154 MEQ/ML 2,000 ml/hr, 2015 [facility] Injectable Infuse Over: Solution 30 minutes, Route: IV, 1,000, Drug form: INJ, ONCE, Priority: STAT, Dosing Weight 95 kg, Start date: 01/31/16 17:04:00 CDT, Duration: 1 doses or times, Stop date: 01/31/16 17:04:00 CDT Acetaminophen 325 1 tab, Route: Inactive The MG / Hydrocodone PO, Drug Form: 2015 [facility] Bitartrate 10 MG TAB, Dosing Oral Tablet [[place] Weight 95, kg, 10/325] ONCE, STAT, Start date: 01/31/16 16:57:00 CDT, Stop date: 01/31/16 16:57:00 CDTNotes: Do not exceed 4gm/day of acetaminophen. (Same as: [place] 325/10) Amlodipine 10 mg, PO, Active The Daily, 0 2015 [facility] Refill(s) gabapentin 300 mg, PO, Active The BID, 0 2015 [facility] Refill(s) atorvastatin 20 mg, 1 tab, Inactive The Route: PO, 2014 [facility] Drug form: TAB, Bedtime, Dosing Weight 98.267, [...] 1 tab, Inactive The Route: PO, 2014 [facility] Drug form: TAB, Daily, Start date: 02/16/15 9:00:00, Duration: 30 day, Stop date: 03/17/15 9:00:00Notes: (Same as: Prinivil, Zestril) metoprolol 25 mg, 1 tab, Inactive The tartrate Route: PO, 2014 [facility] Drug form: TAB, Q12H, Dosing Weight 98.267, kg, Start date: 02/16/15 9:00:00, Duration: 30 day, Stop date: 03/17/15 21:00:00Notes: (Same as: Lopressor) Microzide 12.5 mg, 1 Inactive The tab, Route: 2014 [facility] PO, Drug form: TAB, Daily, Start date: 02/16/15 9:00:00, Duration: 30 day, Stop date: 03/17/15 9:00:00Notes: (Same as: Hydrodiuril). Give with food. pneumococcal 0.5 mL, Route: Inactive The capsular IM, Drug Form: 2014 [facility] polysaccharide INJ, Daily, type 1 vaccine / [...] The Oral Tablet tab, Route: Active 2014 [facility] [Xanax] PO, Drug form: TAB, BID, Dosing Weight 98.267, kg, PRN Anxiety, Start date: 02/15/15 23:39:00, Duration: 30 day, Stop date: 03/17/15 23:38:00Notes: With food or milk (Same as: Xanax) Acetaminophen 325 1 tab, Route: No Longer The MG / Hydrocodone PO, Drug Form: Active 2014 [facility] Bitartrate 5 MG TAB, Dosing Oral Tablet [[place] Weight 98.267, 5/325] kg, Q12H, PRN Pain 1-3/Temp > 100.4 F, Start date: 02/15/15 23:39:00, Duration: 30 day, Stop date: 03/17/15 23:38:00Notes: (Same as: [place] 325/5) Do not exceed 4gm/day of acetaminophen. Tessalon Perles 200 mg, 2 cap, No Longer The Route: PO, Active 2014 [facility] Drug form: CAP, TID, Dosing Weight 13.636, kg, Start date: 02/15/15 20:00:00, Duration: 30 day, Stop date: 03/17/15 17:00:00Notes: (Same As: Tessalon Perles) "Do Not Crush" Acetaminophen 325 1 tab, PO, Active The MG / Hydrocodone Q12H, PRN 2014 [facility] Bitartrate 5 MG Pain, # 30 Oral Tablet [[place] tab, 0 5/325] Refill(s) Alprazolam 0.25 MG 0.25 mg=1 tab, Active The Oral Tablet PO, BID, PRN 2014 [facility] [Xanax] Anxiety, Stress, # 20 tab, 0 Refill(s) metoprolol 25 mg, PO, Active The tartrate BID, 0 2014 [facility] Refill(s) NS 1,000 mL 1,000 mL, No Longer The Rate: 75 Active 2014 [facility] ml/hr, Infuse over: 13.3 hr, Route: IV, Dosing Weight 13.636 kg, Total Volume: 1,000, Start date: 02/15/15 18:04:00, Duration: 30 day, Stop date: 03/17/15 18:03:00 Xopenex 0.63 mg, 3 mL, No Longer The Route: NEB, Active 2014 [facility] Drug form: SOLN, PRN, Dosing Weight 13.636, kg, PRN Respiratory Protocol, Start date: 02/15/15 18:03:00, Duration: 30 day, Stop date: 03/17/15 18:02:00Notes: SEE RT DOCUMENTATION (Same as:Xopenex) Non-Formulary Acetaminophen 325 2 tab, Route: No Longer The MG / Hydrocodone PO, Drug Form: Active 2014 [facility] Bitartrate 10 MG TAB, Dosing Oral Tablet [[place] Weight 13.636, 10/325] kg, Q4H, PRN Pain Score 4-6, Start date: 02/15/15 18:03:00, Duration: 30 day, Stop date: 03/17/15 18:02:00Notes: Do not exceed 4gm/day of acetaminophen. (Same as: [place] 325/10) Albuterol 0.833 3 ml, Route: No Longer The MG/ML / NEB, Drug Active 2014 [facility] Ipratropium Form: SOLN, [place] 0.167 Dosing Weight MG/ML Inhalant 13.636, kg, Solution [DuoNeb] PRN, PRN Respiratory Protocol, Start date: 02/15/15 15:51:00, Duration: 30 day, Stop date: 03/17/15 15:50:00Notes: (Same as: Duoneb) Aspirin 324 mg, 4 tab, Inactive The Route: CHEW, 2014 [facility] Drug form: CHEWTAB, ONCE, Dosing Weight 13.636, kg, Priority: STAT, Start date: 02/15/15 15:00:00, Stop date: 02/15/15 15:00:00Notes: Take with food. tramadol 100 mg=2 tab, Active The hydrochloride 50 PO, Q6H, PRN 2014 [facility] MG Oral Tablet pain, X 3 day, [Ultram] # 20 tab, 0 Refill(s) Tylenol 650 mg, 2 tab, Inactive The Route: PO, 2014 [facility] Drug form: TAB, ONCE, Dosing Weight 108.182, kg, Pediatric Dosing, Priority: STAT, Start date: 02/09/15 15:47:00, Stop date: 02/09/15 15:47:00Notes: Do not exceed 4 gm/day. (Same as: Tylenol) Sodium Chloride 1,000 mL, Inactive The 0.154 MEQ/ML 1,000 ml/hr, 2014 [facility] Injectable Infuse Over: 1 Solution hr, Route: IV, 1,000, Drug form: INJ, ONCE, Priority: STAT, Dosing Weight 104.545 kg, Start date: 01/23/15 14:39:00, Duration: 1 doses or times, Stop date: 01/23/15 14:39:00 Saline Flush 0.9% 10 mL, Route: Inactive The IVP, Drug 2014 [facility] Form: INJ, Dosing Weight 104.545, kg, PRN, PRN Line Flush, Start date: 01/23/15 14:39:00, Duration: 30 day, Stop date: 02/22/15 14:38:00Notes: preservative free. Allergies, Adverse Reactions, Alerts Substance Category Reaction Severity Reaction Status Date Comments Source type Reported morphine Assertion Drug Active The allergy [facility] Immunizations Immunization Date Site Status Last Updated Comments Source Given pneumococcal Right completed Ashok The 23-valent 5 deltoid [facility] vaccine Results Order Name Results Value Reference Date Interpretation Comments Source Range BLOOD BANK RBC product Product available 04/04 The RESULTS /2015 [facility] (04/04/16 11:22 AM) BLOOD BANK ABO/Rh B POS 04/04 The RESULTS [facility] BLOOD BANK Antibody Negative 04/04 The RESULTS [facility] (04/04/16 11:20 AM) URINE AND UA <=1.0 0.1 - 1.0 03/14 The STOOL Urobilinogen mg/dL /2016 [facility] URINE AND UA RBC 1 /HPF 0 [...] mMol/L 0.5 - 2.2 03/14 The Lvl [facility] CHEM PANEL Procalcitoni <0.05 0.00 - 03/14 The n Lvl ng/mL 0. [facility] BLOOD BANK Antibody Negative 03/14 The RESULTS [place] (03/13/16 9:07 PM) BLOOD BANK ABO/Rh B POS 03/14 The RESULTS [facility] CHEM PANEL eGFR 43 03/14 Result Comment: [...] is not recommended in the following populations: [place] [id number] Individuals with unstable creatinine concentrations, including patients [...] 21 mg/dL 7 - 22 03/14 [facility] CHEM PANEL Creatinine 1.79 mg/dL 0.50 - 03/14 MH The Lvl 1.40 [facility] CHEM PANEL Alk Phos 95 unit/L 39 - 136 03/14 [facility] CHEM PANEL Bili Total 0.3 mg/dL 0.2 - 1.3 03/14 [facility] CHEM PANEL AST 39 unit/L 0 - 37 03/14 MH The [facility] CHEM PANEL ALT 59 unit/L 0 - 65 03/14 MH The [facility] CHEM PANEL Sodium Lvl 139 meq/L 135 - 145 03/14 MH The [facility] CHEM PANEL Total 7.8 g/dL 6.4 - 8.4 03/14 MH The Protein [facility] CHEM PANEL Albumin Lvl 2.5 g/dL 3.5 - 5.0 03/14 MH The [facility] CHEM PANEL Glucose Lvl 120 mg/dL 70 - 99 03/14 MH The [facility] CHEM PANEL Chloride Lvl 106 meq/L 95 - 109 03/14 MH The [facility] CHEM PANEL CO2 21 meq/L 24 - 32 03/14 [facility] CHEM PANEL Calcium Lvl 10.1 mg/dL 8.5 - 10.5 03/14 MH The [facility] CHEM PANEL Potassium 3.3 meq/L 3.5 - 5.1 03/14 MH The Lvl [facility] CHEM PANEL A/G Ratio 0.5 0.7 - 1.6 03/14 MH The [facility] CHEM PANEL Globulin 5.3 g/dL 2.7 - 4.2 03/14 The [facility] CHEM PANEL B/C Ratio 12 6 - 25 03/14 The [facility] CHEM PANEL AGAP 15.3 meq/L 10.0 - 03/14 MH The 20.0 [facility] HEMATOLOGY MPV 7.4 fL 7.4 - 10.4 03/14 MH The [facility] HEMATOLOGY WBC 7.3 K/CMM 3.7 - 10.4 03/14 The [facility] HEMATOLOGY MCV 88.5 fL 80.0 - 03/14 MH The 94.0 [facility] HEMATOLOGY RBC 3.00 M/CMM 4.70 - 03/14 MH The 6. [facility] HEMATOLOGY Hct 26.5 % 42.0 - 03/14 MH The 54.0 [facility] HEMATOLOGY Hgb 8.8 g/dL 14.0 - 03/14 MH The 18.0 [facility] HEMATOLOGY MCHC 33.1 g/dL 32.0 - 03/14 MH The 36.0 [facility] HEMATOLOGY MCH 29.3 pg 27.0 - 03/14 MH The 31.0 [facility] HEMATOLOGY Platelet 241 K/CMM 133 - 450 03/14 MH The [facility] HEMATOLOGY RDW 15.5 % 11.5 - 03/14 MH The 14.5 [facility] HEMATOLOGY Basophils # 0.1 K/CMM 0.0 - 0.2 03/14 MH The [facility] HEMATOLOGY Lymphocytes 14.3 % 20.0 - 03/14 MH The 40.0 [facility] HEMATOLOGY Eosinophils 1.9 % 0.0 - 4.0 03/14 MH The [facility] HEMATOLOGY Segs 77.1 % 45.0 - 03/14 MH The 75.0 [facility] HEMATOLOGY Monocytes 5.3 % 2.0 - 12.0 03/14 MH The [facility] HEMATOLOGY Basophils 1.4 % 0.0 - 1.0 03/14 MH The [facility] HEMATOLOGY Segs-Bands # 5.6 K/CMM 1.5 - 8.1 03/14 MH The [facility] HEMATOLOGY Lymphocytes 1.0 K/CMM 1.0 - 5.5 03/14 MH The # [facility] HEMATOLOGY Monocytes # 0.4 K/CMM 0.0 - 0.8 03/14 [facility] HEMATOLOGY Eosinophils 0.1 K/CMM 0.0 - 0.5 03/14 The [facility] Ext Lower Ext Lower Study: Ext Lower Venous Doppler Bilat US 03/13/2016 11: 06 PM CDT 03/13 - [facility] Venous Venous /2015 [facility] Doppler Doppler Ordering Physician: Blanche Diza MD Bilat US Bilat US Clinical Indication: [...] no evidence for deep venous thrombosis. SL: [id number] Chest Chest 1view Study: Chest 1view DX 03/13/2016 11:18 PM CDT 03/13 [facility] 1view DX DX [facility] Ordering Physician: Blanche Diaz MD Clinical Indication: [...] no pneumothorax. No acute cardiopulmonary disease. SL: [id number] ANEMIA UIBC 174 ug/dl 110 - 370 02/15 The [facility] ANEMIA TIBC 196 ug/dl 228 - 428 02/15 The [facility] ANEMIA Iron 22 ug/dl 45 - 160 02/15 The [facility] ANEMIA % [place] 11 % 12 - 57 02/15 The [facility] Chest Chest 1view Clinical Indication: Fever; 02/14 - The 1view DX DX /2015 - [facility] Comparison: 02/15/2015 Read by: Akil Castaneda MD [...] radiographic evidence of acute cardiopulmonary disease. SL: [id number] CHEM PANEL eGFR 57 02/14 Result Comment: [...] is not recommended in the following populations: [facility] 3m2 Individuals with unstable creatinine concentrations, including [...] 14.7 meq/L 10.0 - 02/14 The . [facility] CHEM PANEL Calcium Lvl 8.7 mg/dL 8.5 - 10.5 02/14 [facility] CHEM PANEL CO2 24 meq/L 24 - 32 02/14 [facility] CHEM PANEL Chloride Lvl 99 meq/L 95 - 109 02/14 [facility] CHEM PANEL Potassium 3.7 meq/L 3.5 - 5.1 02/14 The Lvl /2015 [facility] CHEM PANEL BUN 16 mg/dL 7 - 22 02/14 The [facility] CHEM PANEL Glucose Lvl 128 mg/dL 70 - 99 02/14 The [facility] CHEM PANEL Sodium Lvl 134 meq/L 135 - 145 02/14 The [facility] CHEM PANEL Creatinine 1.42 mg/dL 0.50 - 02/14 The Lvl 1.40 [facility] CHEM PANEL eGFR 51 02/13 Result Comment: [...] is not recommended in the following populations: [address] Individuals with unstable creatinine concentrations, including [...] mg/dL 0.2 - 1.3 02/13 Result Comment: [facility] reviewed all results 02/14/2016 06:35 [facility] CHEM PANEL ALT 25 unit/L 0 - 65 02/13 The [facility] CHEM PANEL AST 15 unit/L 0 - 37 02/13 The [facility] CHEM PANEL Alk Phos 62 unit/L 39 - 136 02/13 The [facility] CHEM PANEL Globulin 4.8 g/dL 2.7 - 4.2 02/13 The [facility] CHEM PANEL A/G Ratio 0.5 0.7 - 1.6 02/13 The [facility] CHEM PANEL Calcium Lvl 9.0 mg/dL 8.5 - 10.5 02/13 The [facility] CHEM PANEL Glucose Lvl 109 mg/dL 70 - 99 02/13 The [facility] CHEM PANEL CO2 24 meq/L 24 - 32 02/13 The [facility] CHEM PANEL Chloride Lvl 101 meq/L 95 - 109 02/13 The [facility] CHEM PANEL BUN 17 mg/dL 7 - 22 02/13 The [facility] CHEM PANEL Potassium 4.1 meq/L 3.5 - 5.1 02/13 The Lvl /2015 [facility] CHEM PANEL AGAP 14.1 meq/L 10.0 - 02/13 The 20.0 [facility] CHEM PANEL Albumin Lvl 2.3 g/dL 3.5 - 5.0 02/13 The [facility] CHEM PANEL Total 7.1 g/dL 6.4 - 8.4 02/13 The Protein /2015 [facility] CHEM PANEL Creatinine 1.55 mg/dL 0.50 - 02/13 The Lvl 1.40 [facility] CHEM PANEL Sodium Lvl 135 meq/L 135 - 145 02/13 The [facility] CHEM PANEL B/C Ratio 11 6 - 25 02/13 The [facility] HEMATOLOGY MPV 7.7 fL 7.4 - 10.4 02/13 The [facility] HEMATOLOGY Hct 25.4 % 42.0 - 02/13 The 54.0 [facility] HEMATOLOGY MCH 32.7 pg 27.0 - 02/13 The 31.0 [facility] HEMATOLOGY MCV 96.6 fL 80.0 - 02/13 The 94.0 [facility] HEMATOLOGY Platelet 296 K/CMM 133 - 450 02/13 The [facility] HEMATOLOGY RDW 14.7 % 11.5 - 02/13 The 14.5 [facility] HEMATOLOGY MCHC 33.8 g/dL 32.0 - 02/13 The 36.0 [facility] HEMATOLOGY WBC 8.4 K/CMM 3.7 - 10.4 02/13 The [facility] HEMATOLOGY Hgb 8.6 g/dL 14.0 - 02/13 The 18.0 [facility] HEMATOLOGY RBC 2.63 M/CMM 4.70 - 02/13 The 6.10 [facility] HEMATOLOGY Lymphocytes 1.5 K/CMM 1.0 - 5.5 02/13 The # /2015 [facility] HEMATOLOGY Eosinophils 0.2 K/CMM 0.0 - 0.5 02/13 The # [facility] HEMATOLOGY Monocytes # 0.8 K/CMM 0.0 - 0.8 02/13 [facility] HEMATOLOGY Basophils # 0.1 K/CMM 0.0 - 0.2 02/13 [facility] HEMATOLOGY Monocytes 9.9 % 2.0 - 12.0 02/13 The [facility] HEMATOLOGY Lymphocytes 17.2 % 20.0 - 02/13 The 40.0 [facility] HEMATOLOGY Segs 69.8 % 45.0 - 02/13 The 75.0 [facility] HEMATOLOGY Eosinophils 2.2 % 0.0 - 4.0 02/13 The [facility] HEMATOLOGY Segs-Bands # 5.9 K/CMM 1.5 - 8.1 02/13 [facility] HEMATOLOGY Basophils 0.9 % 0.0 - 1.0 02/13 [facility] TOXICOLOGY Vanco Tr 14.8 ug/ml 02/13 [facility] TOXICOLOGY Vanco Tr TND TBD 02/13 [facility] Foot Foot series Clinical Indication: Pain and swelling. Post surgery. The series DX DX - [facility] Comparison: 01/31/2016. Read by: Samson Ramirez MD [...] post transmetatarsal amputation, as noted above. SL: [id number] CHEM PANEL Total 6.3 g/dL 6.4 - 8.4 02/12 The Protein [facility] CHEM PANEL A/G Ratio 0.7 0.7 - 1.6 02/12 The [facility] CHEM PANEL B/C Ratio 12 6 - 25 02/12 [facility] CHEM PANEL Globulin 3.8 g/dL 2.7 - 4.2 02/12 MH The [place] CHEM PANEL AST 12 unit/L 0 - 37 02/12 MH The [place] CHEM PANEL Alk Phos 61 unit/L 39 - 136 02/12 MH The [place] CHEM PANEL Albumin Lvl 2.5 g/dL 3.5 - 5.0 02/12 MH The [place] CHEM PANEL ALT 26 unit/L 0 - 65 02/12 MH The [place] CHEM PANEL Bili Total 0.4 mg/dL 0.2 - 1.3 02/12 MH The [place] CHEM PANEL AGAP 13.5 meq/L 10.0 - 02/12 MH The 20.0 [facility] CHEM PANEL eGFR 57 02/12 Result Comment: [...] is not recommended in the following populations: [address] Individuals with unstable creatinine concentrations, including [...] CO2 27 meq/L 24 - 32 02/12 MH [facility] CHEM PANEL Calcium Lvl 8.7 mg/dL 8.5 - 10.5 02/12 MH The [place] CHEM PANEL Chloride Lvl 100 meq/L 95 - 109 02/12 MH The [place] CHEM PANEL Potassium 4.5 meq/L 3.5 - 5.1 02/12 MH The [place] CHEM PANEL Creatinine 1.42 mg/dL 0.50 - 02/12 MH The Lvl 1.40 [facility] CHEM PANEL Sodium Lvl 136 meq/L 135 - 145 02/12 MH The [place] CHEM PANEL Glucose Lvl 105 mg/dL 70 - 99 02/12 MH The [place] CHEM PANEL BUN 17 mg/dL 7 - 22 02/12 The [facility] TOXICOLOGY Vanco Tr TND TBD 02/12 The [facility] TOXICOLOGY Vanco Tr 9.3 ug/ml 02/12 The [facility] CHEM PANEL Phosphorus 4.9 mg/dL 2.5 - 4.5 02/11 The [facility] CHEM PANEL Magnesium 1.8 mg/dL 1.8 - 2.4 02/11 The Lvl [facility] HEMATOLOGY Segs 70.5 % 45.0 - 02/11 MH The 75.0 [facility] HEMATOLOGY Lymphocytes 18.0 % 20.0 - 02/11 MH The 40.0 [facility] HEMATOLOGY Monocytes 9.7 % 2.0 - 12.0 02/11 The [facility] HEMATOLOGY Segs-Bands # 6.4 K/CMM 1.5 - 8.1 02/11 The [facility] HEMATOLOGY Lymphocytes 1.6 K/CMM 1.0 - 5.5 02/11 The # [facility] HEMATOLOGY Basophils 0.5 % 0.0 - 1.0 02/11 MH The [place] HEMATOLOGY Eosinophils 1.3 % 0.0 - 4.0 02/11 MH The [place] HEMATOLOGY Monocytes # 0.9 K/CMM 0.0 - 0.8 02/11 The [place] HEMATOLOGY Eosinophils 0.1 K/CMM 0.0 - 0.5 02/11 The # [facility] HEMATOLOGY Platelet 307 K/CMM 133 - 450 02/11 The [facility] HEMATOLOGY MPV 6.9 fL 7.4 - 10.4 02/11 The [facility] HEMATOLOGY MCHC 33.9 g/dL 32.0 - 02/11 The 36.0 [facility] HEMATOLOGY RDW 15.1 % 11.5 - 02/11 MH The 14.5 [facility] HEMATOLOGY RBC 2.69 M/CMM 4.70 - 02/11 MH The 6.10 [facility] HEMATOLOGY MCV 96.5 fL 80.0 - 02/11 MH The 94.0 [facility] HEMATOLOGY WBC 9.1 K/CMM 3.7 - 10.4 02/11 The [facility] HEMATOLOGY Hgb 8.8 g/dL 14.0 - 02/11 MH The 18.0 [facility] HEMATOLOGY Hct 26.0 % 42.0 - 02/11 MH The 54.0 [facility] HEMATOLOGY MCH 32.7 pg 27.0 - 02/11 MH The 31.0 [facility] HEMATOLOGY Segs-Bands # 7.7 K/CMM 1.5 - 8.1 02/11 The [facility] HEMATOLOGY Basophils 1.5 % 0.0 - 1.0 02/11 MH The [place] HEMATOLOGY Basophils # 0.2 K/CMM 0.0 - 0.2 02/11 MH The [place] HEMATOLOGY Eosinophils 0.2 K/CMM 0.0 - 0.5 02/11 MH The # /2015 [facility] HEMATOLOGY Monocytes # 1.2 K/CMM 0.0 - 0.8 02/11 MH The [place] HEMATOLOGY Segs 69.4 % 45.0 - 02/11 MH The 75.0 [facility] HEMATOLOGY Monocytes 10.5 % 2.0 - 12.0 02/11 The [facility] HEMATOLOGY Eosinophils 1.6 % 0.0 - 4.0 02/11 MH The [place] HEMATOLOGY Lymphocytes 1.9 K/CMM 1.0 - 5.5 02/11 MH The # /2015 [facility] HEMATOLOGY Lymphocytes 17.0 % 20.0 - 02/11 MH The 40.0 [facility] HEMATOLOGY Hct 28.9 % 42.0 - 02/11 MH The 54.0 [facility] HEMATOLOGY MCHC 33.6 g/dL 32.0 - 02/11 The 36.0 [facility] HEMATOLOGY RDW 14.6 % 11.5 - 02/11 The 14.5 [facility] HEMATOLOGY MCV 96.6 fL 80.0 - 02/11 MH The 94.0 [facility] HEMATOLOGY MCH 32.4 pg 27.0 - 02/11 MH The 31.0 [facility] HEMATOLOGY Hgb 9.7 g/dL 14.0 - 02/11 MH The 18.0 [facility] HEMATOLOGY WBC 11.1 K/CMM 3.7 - 10.4 02/11 MH The [place] HEMATOLOGY RBC 2.99 M/CMM 4.70 - 02/11 The 6.10 [facility] HEMATOLOGY Platelet 360 K/CMM 133 - 450 02/11 The [facility] HEMATOLOGY MPV 7.4 fL 7.4 - 10.4 02/11 The [facility] TOXICOLOGY Vanco Tr 10.9 ug/ml 02/10 The [facility] TOXICOLOGY Vanco Tr TND TBD 02/10 The [facility] HEMATOLOGY Basophils # 0.1 K/CMM 0.0 - 0.2 02/09 The [facility] TOXICOLOGY Vanco Lvl 14.1 ug/ml 02/09 The [facility] HEMATOLOGY Sed Rate null 0 - 15 02/08 The [facility] BLOOD BANK Antibody Negative 02/07 The RESULTS Scrn /2015 [facility] (02/08/16 5:38 AM) BLOOD BANK ABO/Rh B POS 02/07 The RESULTS [facility] CHEM PANEL Procalcitoni 0.11 ng/mL 0.00 - 02/07 The n Lvl 0. [facility] URINE AND UA Sq Epi None Seen 02/04 The STOOL [facility] URINE AND UA <=1.0 0.1 - 1.0 02/04 The STOOL Urobilinogen mg/dL [facility] URINE AND UA Leuk Est Negative Negative 02/04 The STOOL /2015 [facility] (02/05/16 12:36 AM) URINE AND UA Bacteria Occasional None Seen 02/04 The STOOL /HPF /HPF [facility] URINE AND UA WBC 1 /HPF 0 - 5 02/04 The STOOL [facility] URINE AND UA Blood Negative Negative 02/04 The STOOL /2015 [facility] (02/05/16 12:36 AM) URINE AND UA Bili Negative Negative 02/04 The STOOL [facility] *NA* (02/05/16 12:36 AM) URINE AND UA Nitrite Negative Negative 02/04 The STOOL /2015 [facility] (02/05/16 12:36 AM) URINE AND UA Glucose Negative Negative 02/04 The ST[facility]OL mg/dL mg/dL [facility] URINE AND UA Protein Negative Negative 02/04 The STOOL mg/dL mg/dL [place] URINE AND UA Turbidity Clear Clear 02/04 The STOOL /2015 [facility] (02/05/16 12:36 AM) URINE AND UA pH 6.0 5.0 - 8.0 02/04 The STOOL /2015 [facility] URINE AND UA Color Light Yellow Yellow 02/04 The STOOL [facility] *NA* (02/05/16 12:36 AM) URINE AND UA Ketones Negative Negative 02/04 The STOOL mg/dL mg/dL /2015[place] URINE AND UA Spec Grav 1.006 <=1.030 02/04 The STOOL [facility] Abdominal Abdominal Clinical Indication: Gangrene; right foot gangrene. The Aorta with Aorta with /2015 - [facility] runoff CTA runoff CTA Comparison: None Read [...] 5th MCP is concerning for osteomyelitis. SL: [id number] URINE AND UA Sq Epi None Seen 01/31 The [facility] URINE AND UA <=1.0 0.1 - 1.0 01/31 The STOOL Urobilinogen mg/dL [place] URINE AND UA Blood Negative Negative 01/31 The [facility] (02/01/16 4:31 PM) URINE AND UA Nitrite Negative Negative 01/31 The [facility] (02/01/16 4:31 PM) URINE AND UA Leuk Est Negative Negative 01/31 The [facility] (02/01/16 4:31 PM) URINE AND UA WBC 1 /HPF 0 - 5 01/31 The [facility] [place] URINE AND UA Hyal Cast 3 /LPF 0 - 2 01/31 The [facility] [place] URINE AND UA pH 5.5 5.0 - 8.0 01/31 The [facility] [place] URINE AND UA Glucose Negative Negative 01/31 The STOOL mg/dL mg/dL [place] URINE AND UA Ketones Negative Negative 01/31 The STOOL mg/dL mg/dL /2015 [facility] URINE AND UA Bili Negative Negative 01/31 The STOOL [facility] *NA* (02/01/16 4:31 PM) URINE AND UA Protein Negative Negative 01/31 The STOOL mg/dL mg/dL /2015 [facility] URINE AND UA Color Yellow Yellow 01/31 The STOOL [facility] *NA* (02/01/16 4:31 PM) URINE AND UA Turbidity Clear Clear 01/31 The STOOL /2015 [place] (02/01/16 4:31 PM) URINE AND UA Spec Grav 1.007 <=1.030 01/31 The STOOL [place] URINE CHEM U Chloride 41 meq/L 01/31 The [place] URINE CHEM U Creatinine 70.40 01/31 The mg/dL [place] URINE CHEM U Sodium 38 meq/L 01/31 The [place] Retroperit Retroperiton Clinical Indication: Renal insufficiency 01/31 - The [facility] - [facility] US US Comparison: None Read by: Ky Woods [...] with hematuria or urinary tract infection. SL: [id number] CARDIAC Troponin-I null 0.00 - 01/30 The ENZYMES 0.40 [place] CHEM PANEL Procalcitoni 0.13 ng/mL 0.00 - 01/30 The n Lvl 0.10 [place] CHEM PANEL Lactic Acid 1.7 mMol/L 0.5 - 2.2 01/30 The Lvl /2015 [place] CHEM PANEL Bili Total 0.4 mg/dL 0.2 - 1.3 01/30 The [place] CHEM PANEL Total 7.7 g/dL 6.4 - 8.4 01/30 The Protein [place] CHEM PANEL AST 19 unit/L 0 - 37 01/30 The [place] CHEM PANEL ALT 23 unit/L 0 - 65 01/30 The [place] CHEM PANEL Alk Phos 58 unit/L 39 - 136 01/30 The [place] CHEM PANEL Albumin Lvl 2.8 g/dL 3.5 - 5.0 01/30 The [place] CHEM PANEL A/G Ratio 0.6 0.7 - 1.6 01/30 The [place] CHEM PANEL Globulin 4.9 g/dL 2.7 - 4.2 01/30 The [place] CHEM PANEL B/C Ratio 15 6 - 25 01/30 The [place] HEMATOLOGY PTT 42.4 s 22.9 - 01/30 The 35.8 [place] HEMATOLOGY PT 14.6 s 12.0 - 01/30 The 14.7 [place] HEMATOLOGY INR 1.11 0.85 - 01/30 The 1.17 [place] Ext Lower Ext Lower Clinical Indication: Right leg claudication and leg ulcer. 01/30 - The Arterial Arterial /2015 [place] Doppler Doppler [facility]: [facility] Read by: Samson Ramirez MD Dictated Date/time: 01/31/16 20:20 Electronically Signed by: Samson Ramirez MD 01/31/16 20:25 FINAL REPORT TECHNIQUE: Sonographic evaluation of the right lower extremity arteries was performed with grayscale and color Doppler imaging with standard technique. FINDINGS: RIGHT: SUGAR REFINER: Monophasic waveforms with severely decreased peak systolic velocities. SFA: Monophasic waveforms. Spectral broadening. Mildly decreased peak systolic velocities. This may be related to collateral flow. POP: Monophasic waveforms. Spectral broadening with moderately decreased peak systolic velocities. SHUTTLE FINAL INSPECTOR: Monophasic waveforms. Spectral broadening with severely decreased [...] or conventional angiography for complete assessment. SL: [id number] Foot Foot series Clinical Indication: Pain and swelling , status post amputation 4 years ago 01/30 The series DX /2015 [facility] Comparison: None Read by: Ky Woods MD [...] the right foot may be beneficial. SL: [id number] LIPIDS VLDL 77 02/16 [place] LIPIDS HDL 29 mg/dL >=61 mg/dL 02/16 The [place] LIPIDS Chol 222 mg/dL <=199 02/16 The mg/dL [place] LIPIDS CHD Risk 7.66 4.00 - 02/16 The 7.30 [place] LIPIDS Trig 384 mg/dL <=149 02/16 The mg/dL [place] LIPIDS LDL 116 mg/dL <=99 mg/dL 02/16 The (Calculated) /2014 [place] CARDIAC CK MB Index 0.8 0.0 - 2.5 02/16 The ENZYMES /2014 [place] CARDIAC CK MB 0.6 ng/mL 0.5 - 3.6 02/16 The ENZYMES /2014 [place] CARDIAC Troponin-I null 0.00 - 02/16 The ENZYMES 0.40 [place] CARDIAC Total CK 76 unit/L 12 - 191 02/16 The ENZYMES [place] CARDIAC Troponin-I null 0.00 - 02/16 [facility] The ENZYMES 0.40 /2014 [place] CARDIAC Total CK 89 unit/L 12 - 191 02/16 MH The ENZYMES [place] CARDIAC CK MB Index 1.0 0.0 - 2.5 02/16 MH The ENZYMES [place] CARDIAC CK MB 0.9 ng/mL 0.5 - 3.6 02/16 MH The ENZYMES [place] THYROID TSH 2.000 0.360 - 02/16 MH The PANEL uIU/mL 3.740 /2014 [place] CARDIAC CK MB Index 0.8 0.0 - 2.5 02/15 MH The ENZYMES [place] CARDIAC Troponin-I null 0.00 - 02/15 MH The ENZYMES 0.40 [place] CARDIAC Total CK 111 unit/L 12 - 191 02/15 MH The ENZYMES [place] CARDIAC CK MB 0.9 ng/mL 0.5 - 3.6 02/15 MH The ENZYMES [place] CHEM PANEL eGFR 70 02/15 Result Comment: [...] is not recommended in the following populations: [place] 3m2 Individuals with unstable creatinine concentrations, including [...] 87 unit/L 39 - 136 02/15 [facility] [place] CHEM PANEL AST 23 unit/L 0 - 37 02/15 MH [place] CHEM PANEL ALT 27 unit/L 0 - 65 02/15 [facility] The [place] CHEM PANEL Albumin Lvl 3.4 g/dL 3.5 - 5.0 02/15 The [place] CHEM PANEL Total 7.7 g/dL 6.4 - 8.4 02/15 [facility] The Protein [place] CHEM PANEL A/G Ratio 0.8 0.7 - 1.6 02/15 The [place] CHEM PANEL Globulin 4.3 g/dL 2.0 - 4.0 02/15 The [place] CHEM PANEL B/C Ratio 6 6 - 25 02/15 The [place] CHEM PANEL AGAP 11.8 meq/L 10.0 - 02/15 The 20.0 [place] CHEM PANEL Bili Total 0.4 mg/dL 0.2 - 1.3 02/15 The [place] CHEM PANEL Calcium Lvl 9.2 mg/dL 8.5 - 10.5 02/15 The [place] CHEM PANEL CO2 25 meq/L 24 - 32 02/15 The [place] CHEM PANEL Glucose Lvl 88 mg/dL 70 - 99 02/15 The [place] CHEM PANEL Chloride Lvl 106 meq/L 95 - 109 02/15 The [place] CHEM PANEL Potassium 4.8 meq/L 3.5 - 5.1 02/15 The Lv [place] CHEM PANEL Sodium Lvl 138 meq/L 135 - 145 02/15 The [place] CHEM PANEL Creatinine 1.2 mg/dL 0.5 - 1.4 02/15 The l [place] CHEM PANEL BUN 7 mg/dL 7 - 22 02/15 The [place] CHEM PANEL Magnesium 2.0 mg/dL 1.8 - 2.4 02/15 The Lv [place] HEMATOLOGY Eosinophils 0.4 K/CMM 0.0 - 0.5 02/15 The # [place] HEMATOLOGY Basophils # 0.0 K/CMM 0.0 - 0.2 02/15 The [place] HEMATOLOGY Segs-Bands # 4.6 K/CMM 1.5 - 8.1 02/15 The [place] HEMATOLOGY Monocytes # 0.8 K/CMM 0.0 - 0.8 02/15 The [place] HEMATOLOGY Monocytes 10.3 % 2.0 - 12.0 02/15 The [place] HEMATOLOGY Eosinophils 5.0 % 0.0 - 4.0 02/15 The [place] HEMATOLOGY Basophils 0.4 % 0.0 - 1.0 02/15 The /2014 [place] HEMATOLOGY Lymphocytes 25.7 % 20.0 - 02/15 The 40.0 /2014 [place] HEMATOLOGY Lymphocytes 2.0 K/CMM 1.0 - 5.5 02/15 The # /2014 [place] HEMATOLOGY Segs 58.6 % 45.0 - 02/15 The 75.0 [place] HEMATOLOGY INR 1.00 0.85 - 02/15 The 1.17 [place] HEMATOLOGY PT 13.5 s 12.0 - 02/15 The 14.7 [place] HEMATOLOGY PTT 33.7 s 22.9 - 02/15 The 35.8 [place] HEMATOLOGY Platelet 170 K/CMM 133 - 450 02/15 The [place] HEMATOLOGY WBC 7.8 K/CMM 3.7 - 10.4 02/15 The [place] HEMATOLOGY MCH 33.3 pg 27.0 - 02/15 The 31.0 [place] HEMATOLOGY RBC 4.62 M/CMM 4.70 - 02/15 The 6.10 [place] HEMATOLOGY MCV 97.4 fL 80.0 - 02/15 The 94.0 [place] HEMATOLOGY Hgb 15.4 g/dL 14.0 - 02/15 The 18.0 [place] HEMATOLOGY Hct 45.0 % 42.0 - 02/15 The 54.0 [place] HEMATOLOGY MCHC 34.2 g/dL 32.0 - 02/15 The 36.0 [place] HEMATOLOGY MPV 7.0 fL 7.4 - 10.4 02/15 The [place] HEMATOLOGY RDW 16.0 % 11.5 - 02/15 The 14.5 [place] Chest 2 Chest 2 NAME: REMEDIOS SANCHEZ 02/15 - The views DX views DX - [place] : 1965 SEX: M Ordering Physician: Jaciel [...] 02/09 - The complete complete DX /2014 [place] DX : 1965 SEX: M Ordering Physician: [...] U Cocaine Negative Negative 01/23 The SCREEN [place] *NA* (01/23/15 3:10 PM) DRUG U Opiate Scr Negative Negative 01/23 The [place] *NA* (01/23/15 3:10 PM) DRUG U Cannab Scr Negative Negative 01/23 The [place] *NA* (01/23/15 3:10 PM) DRUG U Phencyc Negative Negative 01/23 The SCREEN [place] *NA* (01/23/15 3:10 PM) DRUG UDS Note See Note 01/23 The [place] (01/23/15 3:10 PM) DRUG U Shoshana Scr Negative Negative 01/23 The [place] *NA* (01/23/15 3:10 PM) DRUG U Benzodia Positive Negative 01/23 The SCREEN [place] *ABN* (01/23/15 3:10 PM) DRUG U Amph Scr Negative Negative 01/23 The [place] *NA* (01/23/15 3:10 PM) URINE AND UA <=1.0 0.1 - 1.0 01/23 [facility] The STOOL Urobilinogen mg/dL [place] URINE AND UA Glucose Negative Negative 01/23 The [facility] mg/dL mg/dL [facility] URINE AND UA Sq Epi Few /LPF Few /LPF 01/23 The STOOL [facility] URINE AND UA Leuk Est Negative Negative 01/23 The ST[facility] (01/23/15 3:10 PM) URINE AND UA Nitrite Negative Negative 01/23 The STOOL [facility] (01/23/15 3:10 PM) URINE AND UA Bacteria Occasional None Seen 01/23 The STOOL /HPF /HPF [facility] URINE AND UA RBC 3 /HPF 0 - 2 01/23 The STOOL [facility] URINE AND UA WBC null 0 - 5 01/23 The STOOL [facility] URINE AND UA Hyal Cast 5 /LPF 0 - 2 01/23 The lands URINE AND UA Amorph Occasional None Seen 01/23 [facility] The [facility] Brisa /HPF /HPF lands URINE AND UA Mucus Few /LPF None Seen 01/23 The STOOL /LPF /2014[place] URINE AND UA Color Yellow Yellow 01/23 The lands *NA* (01/23/15 3:10 PM) URINE AND UA Protein 200 mg/dL Negative 01/23 The STOOL mg/dL lands URINE AND UA pH 6.0 5.0 - 8.0 01/23 The lands URINE AND UA Spec Grav 1.017 <=1.030 01/23 The lands URINE AND UA Turbidity Slight Clear 01/23 The lands *ABN* (01/23/15 3:10 PM) URINE AND UA Blood Moderate Negative 01/23 The lands *ABN* (01/23/15 3:10 PM) URINE AND UA Bili Negative Negative 01/23 The lands *NA* (01/23/15 3:10 PM) URINE AND UA Ketones Trace Negative 01/23 The STO[facility] mg/dL mg/dL [facility] URINE AND UA Sperm Occasional None Seen 01/23 MH The [facility] /HPF /HPF [facility] CARDIAC CK MB Index 0.7 0.0 - 2.5 01/23 MH The ENZYMES [place] CARDIAC Troponin-I null 0.00 - 01/23 MH The ENZYMES 0.40 /2014 [place] CARDIAC Total CK 170 unit/L 12 - 191 01/23 MH The ENZYMES [place] CARDIAC CK MB 1.2 ng/mL 0.5 - 3.6 01/23 The ENZYMES [place] CHEM PANEL eGFR 54 01/23 Result Comment: [...] is not recommended in the following populations: [place] 3m2 Individuals with unstable creatinine concentrations, including [...] A/G Ratio 1.0 0.7 - 1.6 01/23 [place] CHEM PANEL AST 23 unit/L 0 - 37 01/23 The [place] CHEM PANEL Albumin Lvl 4.3 g/dL 3.5 - 5.0 01/23 [place] CHEM PANEL ALT 39 unit/L 0 - 65 01/23 The [place] CHEM PANEL Total 8.8 g/dL 6.4 - 8.4 01/23 The Protein [place] CHEM PANEL Calcium Lvl 9.3 mg/dL 8.5 - 10.5 01/23 [place] CHEM PANEL AGAP 20.5 meq/L 10.0 - 01/23 MH The 20.0 [place] CHEM PANEL Globulin 4.5 g/dL 2.0 - 4.0 01/23 [place] CHEM PANEL B/C Ratio 10 6 - 25 01/23 [place] CHEM PANEL Bili Total 0.5 mg/dL 0.2 - 1.3 01/23 MH The [place] CHEM PANEL Alk Phos 88 unit/L 39 - 136 01/23 MH The [place] CHEM PANEL Potassium 4.5 meq/L 3.5 - 5.1 01/23 MH The Lvl [place] CHEM PANEL Sodium Lvl 139 meq/L 135 - 145 01/23 The [place] CHEM PANEL CO2 17 meq/L 24 - 32 01/23 The [place] CHEM PANEL Chloride Lvl 106 meq/L 95 - 109 01/23 MH The [place] CHEM PANEL Glucose Lvl 114 mg/dL 70 - 99 01/23 MH The [place] CHEM PANEL Creatinine 1.5 mg/dL 0.5 - 1.4 01/23 MH The Lv [place] CHEM PANEL BUN 15 mg/dL 7 - 22 01/23 The [place] HEMATOLOGY Segs 89.7 % 45.0 - 01/23 MH The 75.0 [place] HEMATOLOGY Segs-Bands # 11.6 K/CMM 1.5 - 8.1 01/23 The [place] HEMATOLOGY Lymphocytes 0.8 K/CMM 1.0 - 5.5 01/23 MH The [place] HEMATOLOGY Lymphocytes 6.5 % 20.0 - 01/23 The 40.0 [place] HEMATOLOGY Monocytes 3.2 % 2.0 - 12.0 01/23 MH The [place] HEMATOLOGY Monocytes # 0.4 K/CMM 0.0 - 0.8 01/23 The [place] HEMATOLOGY Eosinophils 0.0 K/CMM 0.0 - 0.5 01/23 MH The [place] HEMATOLOGY Basophils # 0.1 K/CMM 0.0 - 0.2 01/23 MH The [place] HEMATOLOGY Eosinophils 0.2 % 0.0 - 4.0 01/23 The [place] HEMATOLOGY Basophils 0.4 % 0.0 - 1.0 01/23 The [place] HEMATOLOGY PT 14.2 s 12.0 - 01/23 MH The 14.7 [place] HEMATOLOGY INR 1.07 0.85 - 01/23 MH The 1.17 [place] HEMATOLOGY PTT 31.2 s 22.9 - 01/23 MH The 35.8 [place] HEMATOLOGY MPV 8.3 fL 7.4 - 10.4 01/23 The [place] HEMATOLOGY MCHC 32.8 g/dL 32.0 - 01/23 The 36.0 [place] HEMATOLOGY RDW 17.0 % 11.5 - 01/23 MH The 14.5 [place] HEMATOLOGY Platelet 202 K/CMM 133 - 450 01/23 The [place] HEMATOLOGY Hct 51.7 % 42.0 - 01/23 The 54.0 [place] HEMATOLOGY MCV 97.9 fL 80.0 - 01/23 The 94.0 [place] HEMATOLOGY MCH 32.1 pg 27.0 - 01/23 The 31.0 [place] HEMATOLOGY Hgb 17.0 g/dL 14.0 - 01/23 The 18.0 [place] HEMATOLOGY WBC 12.9 K/CMM 3.7 - 10.4 01/23 The [place] HEMATOLOGY RBC 5.28 M/CMM 4.70 - 01/23 The 6.10 [place] TOXICOLOGY Etoh (%) null 01/23 The [place] TOXICOLOGY Ethanol Lvl null 01/23 [place] Brain wo Brain wo Name: REMEDIOS SANCHEZ 01/23 - The contrast contrast CT /2014 [facility] CT : 1965 Read by: Tayla hTorne MD Dictated Date/time: 01/23/15 16:01 SEX: M Electronically Signed by: Tayla Thorne MD 01/23/15 16:07 FINAL REPORT Ordering Physician: Tim Fry Brain wo contrast CT : Jan 23, 2015 [...] is not recommended in the following populations: [address] Individuals with unstable creatinine concentrations, including [...] Total 0.3 mg/dL 0.2 - 1.3 11/20 [place] CHEM PANEL AST 18 unit/L 0 - 37 11/20 [place] CHEM PANEL Alk Phos 88 unit/L 39 - 136 11/20 [place] CHEM PANEL ALT 36 unit/L 0 - 65 11/20 [place] CHEM PANEL Albumin Lvl 4.0 g/dL 3.5 - 5.0 11/20 [place] CHEM PANEL Total 8.8 g/dL 6.4 - 8.4 11/20 The Protein [place] CHEM PANEL CO2 22 meq/L 24 - 32 11/20 The [place] CHEM PANEL Calcium Lvl 9.5 mg/dL 8.5 - 10.5 11/20 The [place] CHEM PANEL Chloride Lvl 103 meq/L 95 - 109 11/20 The [place] CHEM PANEL Sodium Lvl 135 meq/L 135 - 145 11/20 The [place] CHEM PANEL Potassium 4.2 meq/L 3.5 - 5.1 11/20 The Lvl [place] CHEM PANEL Creatinine 1.2 mg/dL 0.5 - 1.4 11/20 The Lvl [place] CHEM PANEL Glucose Lvl 110 mg/dL 70 - 99 11/20 4Interpretive Data: Adult reference range values reflect the clinical guidelines MH of the [place] [employer]. [place] CHEM PANEL BUN 7 mg/dL 7 - 22 11/20 The [place] CHEM PANEL Globulin 4.8 g/dL 2.0 - 4.0 11/20 The [place] CHEM PANEL A/G Ratio 0.8 0.7 - 1.6 11/20 The [place] CHEM PANEL B/C Ratio 6 6 - 25 11/20 The [place] CHEM PANEL AGAP 14.2 meq/L 10.0 - 11/20 The 20.0 [place] HEMATOLOGY Eosinophils 3.2 % 0.0 - 4.0 11/20 The [place] HEMATOLOGY Lymphocytes 16.7 % 20.0 - 11/20 The 40.0 [place] HEMATOLOGY Monocytes 6.2 % 2.0 - 12.0 11/20 The [place] HEMATOLOGY Segs 73.3 % 45.0 - 11/20 The 75.0 [place] HEMATOLOGY Basophils 0.6 % 0.0 - 1.0 11/20 The [place] HEMATOLOGY Basophils # 0.1 K/CMM 0.0 - 0.2 11/20 The [place] HEMATOLOGY Eosinophils 0.3 K/CMM 0.0 - 0.5 11/20 The # [place] HEMATOLOGY Monocytes # 0.6 K/CMM 0.0 - 0.8 11/20 The [place] HEMATOLOGY Lymphocytes 1.6 K/CMM 1.0 - 5.5 11/20 The # [place] HEMATOLOGY Segs-Bands # 6.8 K/CMM 1.5 - 8.1 11/20 The [place] HEMATOLOGY Platelet 170 K/CMM 133 - 450 11/20 The [place] HEMATOLOGY MPV 7.6 fL 7.4 - 10.4 11/20 The [place] HEMATOLOGY MCHC 33.8 g/dL 32.0 - 11/20 The 36.0 [place] HEMATOLOGY RDW 14.2 % 11.5 - 11/20 The 14. [place] HEMATOLOGY MCH 33.1 pg 27.0 - 11/20 The 31.0 [place] HEMATOLOGY MCV 97.9 fL 80.0 - 11/20 The 94.0 [place] HEMATOLOGY Hgb 14.2 g/dL 14.0 - 11/20 The 18.0 [place] HEMATOLOGY Hct 42.1 % 42.0 - 11/20 The 54.0 [place] HEMATOLOGY WBC 9.3 K/CMM 3.7 - 10.4 11/20 The [place] HEMATOLOGY RBC 4.30 M/CMM 4.70 - 11/20 The 6. [place] TOXICOLOGY Vanco Tr TND unknown 11/20 [place] TOXICOLOGY Vanco Tr 7.7 ug/ml 11/20 5Interpretive Data: Therapeutic Range: Trough: 10 - 20 ug/mL [place] Peak: 20 - 40 ug/mL Potential Toxicity: >80 ug/mL CHEM PANEL eGFR 47 11/17 2Result Comment: [...] is not recommended in the following populations: [place] 3m2 Individuals with unstable creatinine concentrations, including [...] 1.7 mg/dL 0.5 - 1.4 11/17 The [place] CHEM PANEL BUN 14 mg/dL 7 - 22 11/17 [place] ELECTROLYT Potassium 4.3 meq/L 3.5 - 5.1 11/17 The ES [place] HEMATOLOGY Hct 36.8 % 42.0 - 11/17 The 54.0 [place] HEMATOLOGY MCV 97.6 fL 80.0 - 11/17 The 94.0 [place] HEMATOLOGY MCH 33.2 pg 27.0 - 11/17 The 31.0 [place] HEMATOLOGY Hgb 12.5 g/dL 14.0 - 11/17 The 18.0 [place] HEMATOLOGY WBC 7.7 K/CMM 3.7 - 10.4 11/17 [place] HEMATOLOGY RBC 3.77 M/CMM 4.70 - 11/17 The 6.10 [place] HEMATOLOGY RDW 14.0 % 11.5 - 11/17 The 14. [place] HEMATOLOGY Platelet 155 K/CMM 133 - 450 11/17 [place] HEMATOLOGY MPV 7.7 fL 7.4 - 10.4 11/17 The [place] HEMATOLOGY MCHC 34.0 g/dL 32.0 - 11/17 The 36.0 [place] HEMATOLOGY Segs-Bands # 5.7 K/CMM 1.5 - 8.1 11/17 [place] HEMATOLOGY Eosinophils 4.3 % 0.0 - 4.0 11/17 The [place] HEMATOLOGY Basophils # 0.0 K/CMM 0.0 - 0.2 11/17 The [place] HEMATOLOGY Basophils 0.3 % 0.0 - 1.0 11/17 The [place] HEMATOLOGY Monocytes 5.1 % 2.0 - 12.0 11/17 [place] HEMATOLOGY Lymphocytes 16.3 % 20.0 - 11/17 The 40.0 [place] HEMATOLOGY Lymphocytes 1.2 K/CMM 1.0 - 5.5 11/17 The [place] HEMATOLOGY Eosinophils 0.3 K/CMM 0.0 - 0.5 11/17 The [place] HEMATOLOGY Monocytes # 0.4 K/CMM 0.0 - 0.8 11/17 [place] HEMATOLOGY Segs 74.0 % 45.0 - 11/17 The 75.0 [place] TOXICOLOGY Vanco Tr TND unknown 11/17 [place] TOXICOLOGY Vanco Tr 24.4 ug/ml 11/17 6Interpretive Data: Therapeutic Range: Trough: 10 - 20 ug/mL [place] Peak: 20 - 40 ug/mL Potential Toxicity: >80 ug/mL CHEM PANEL eGFR 54 11/13 3Result Comment: [...] is not recommended in the following populations: [place] 3m2 Individuals with unstable creatinine concentrations, including [...] 1.5 mg/dL 0.5 - 1.4 11/13 The [place] CHEM PANEL BUN 11 mg/dL 7 - 22 11/13 [place] ELECTROLYT Potassium 4.5 meq/L 3.5 - 5.1 11/13 The ES [place] HEMATOLOGY MCH 32.7 pg 27.0 - 11/13 The 31.0 [place] HEMATOLOGY MCHC 33.6 g/dL 32.0 - 11/13 The 36.0 [place] HEMATOLOGY Platelet 186 K/CMM 133 - 450 11/13 [place] HEMATOLOGY RDW 14.0 % 11.5 - 11/13 The 14.5 [place] HEMATOLOGY MPV 7.4 fL 7.4 - 10.4 11/13 The [place] HEMATOLOGY Hgb 12.2 g/dL 14.0 - 11/13 The 18.0 [place] HEMATOLOGY RBC 3.73 M/CMM 4.70 - 11/13 The 6.10 [place] HEMATOLOGY MCV 97.6 fL 80.0 - 11/13 The 94.0 [place] HEMATOLOGY Hct 36.4 % 42.0 - 11/13 The 54.0 [place] HEMATOLOGY WBC 9.7 K/CMM 3.7 - 10.4 11/13 The [place] HEMATOLOGY Basophils # 0.1 K/CMM 0.0 - 0.2 11/13 The [place] HEMATOLOGY Lymphocytes 2.0 K/CMM 1.0 - 5.5 11/13 The [place] HEMATOLOGY Monocytes # 0.7 K/CMM 0.0 - 0.8 11/13 The [place] HEMATOLOGY Eosinophils 0.4 K/CMM 0.0 - 0.5 11/13 The [place] HEMATOLOGY Basophils 0.6 % 0.0 - 1.0 11/13 The [place] HEMATOLOGY Segs-Bands # 6.6 K/CMM 1.5 - 8.1 11/13 The [place] HEMATOLOGY Lymphocytes 20.5 % 20.0 - 11/13 The 40.0 [place] HEMATOLOGY Monocytes 7.3 % 2.0 - 12.0 11/13 The [place] HEMATOLOGY Eosinophils 3.7 % 0.0 - 4.0 11/13 The [place] HEMATOLOGY Segs 67.9 % 45.0 - 11/13 The 75.0 [place] TOXICOLOGY Vanco Tr TND NA 11/13 The [place] TOXICOLOGY Vanco Tr 24.1 ug/ml 11/13 7Interpretive Data: Therapeutic Range: Trough: 10 - 20 ug/mL [place] Peak: 20 - 40 ug/mL Potential Toxicity: >80 ug/mL Vital Signs Vital Sign Value Date Comments Source Systolic (mm Hg) 84 04/05/2016 [facility] Diastolic (mm Hg) 47 04/05/2016 [facility] Respitory Rate 18 04/05/2016 [place] Heart Rate 76 04/05/2016 [facility] Systolic (mm Hg) 80 04/05/2016 [place] Diastolic (mm Hg) 49 04/05/2016 [facility] Respitory Rate 18 04/05/2016 [place] Heart Rate 73 04/05/2016 [facility] Respitory Rate 18 04/05/2016 [place] Heart Rate 72 04/05/2016 [facility] Systolic (mm Hg) 79 04/05/2016 [facility] Diastolic (mm Hg) 42 04/05/2016 [facility] Temperature Oral (F) 97.7 F 04/05/2016 [facility] Temperature Oral (F) 97.7 F 04/05/2016 [facility] Temperature Oral (F) 98.2 F 04/05/2016 [place] Weight 98.6 04/05/2016 [facility] BMI Calculated 28.81 04/05/2016 [facility] Height 185 cm 04/05/2016 [facility] Respitory Rate 18 03/14/2016 [place] Systolic (mm Hg) 119 03/14/2016 [place] Diastolic (mm Hg) 63 03/14/2016 [facility] Systolic (mm Hg) 124 03/14/2016 [facility] Diastolic (mm Hg) 58 03/14/2016 [facility] Respitory Rate 16 03/14/2016 [place] Temperature Oral (F) 98.8 F 03/14/2016 [facility] Respitory Rate 18 03/14/2016 [facility] Systolic (mm Hg) 129 03/14/2016 [place] Diastolic (mm Hg) 62 03/14/2016 [place] Temperature Oral (F) 98.7 F 03/14/2016 [place] Heart Rate 95 03/14/2016 [facility] BMI Calculated 28.69 03/13/2016 [place] Weight 98.636 03/13/2016 [place] Temperature Oral (F) 98.6 F 03/13/2016 [place] Height 185.42 cm 03/13/2016 [place] Heart Rate 105 03/13/2016 [place] Heart Rate 111 02/18/2016 [place] Temperature Oral (F) 98.8 F 02/18/2016 [place] Respitory Rate 18 02/18/2016 [facility] [place] Systolic (mm Hg) 110 02/18/2016 [facility] [place] Diastolic (mm Hg) 56 02/18/2016 [place] Temperature Oral (F) 98.3 F 02/18/2016 [facility] [place] Heart Rate 97 02/18/2016 [facility] [place] Systolic (mm Hg) 94 02/18/2016 [facility] [place] Diastolic (mm Hg) 56 02/18/2016 [facility] [place] Respitory Rate 18 02/18/2016 [place] Temperature Oral (F) 98.2 F 02/18/2016 [facility] Heart Rate 86 02/18/2016 [facility] [place] Systolic (mm Hg) 112 02/18/2016 [facility] [place] Diastolic (mm Hg) 54 02/18/2016 [facility] [place] Respitory Rate 18 02/18/2016 [place] Weight 96.023 02/08/2016 [facility] BMI Calculated 28.69 02/08/2016 [facility] [place] Weight 98.636 02/08/2016 [facility] [place] Height 185.42 cm 02/08/2016 [facility] [place] Weight 97.273 02/01/2016 [facility] [place] BMI Calculated 28.29 02/01/2016 [facility] [place] Height 185.42 cm 02/01/2016 [facility] [place] Height 185.42 cm 01/31/2016 [facility] [place] BMI Calculated 27.63 01/31/2016 [facility] [place] Respitory Rate 16 02/16/2015 [place] Temperature Oral (F) 98.0 F 02/16/2015 [facility] Respitory Rate 18 02/16/2015 [place] Heart Rate 77 02/16/2015 [facility] [place] Systolic (mm Hg) 175 02/16/2015 [facility] [place] Diastolic (mm Hg) 94 02/16/2015 [facility] [place] Temperature Oral (F) 98.2 F 02/16/2015 [facility] [place] Heart Rate 74 02/16/2015 [facility] [place] Systolic (mm Hg) 164 02/16/2015 [facility] [place] Diastolic (mm Hg) 89 02/16/2015 [place] Respitory Rate 18 02/16/2015 [facility] Temperature Oral (F) 97.5 F 02/16/2015 [facility] Systolic (mm Hg) 145 02/16/2015 [facility] Diastolic (mm Hg) 83 02/16/2015 [facility] Heart Rate 72 02/16/2015 [facility] Height 185.42 cm 02/16/2015 [facility] BMI Calculated 28.58 02/16/2015 [facility] Weight 98.267 02/16/2015 [facility] Weight 13.636 02/15/2015 [facility] BMI Calculated 3.97 02/15/2015 [facility] Height 185.42 cm 02/15/2015 [facility] Temperature Oral (F) 98.2 F 02/09/2015 [facility] Heart Rate 88 02/09/2015 [facility] Respitory Rate 18 02/09/2015 [facility] Systolic (mm Hg) 173 02/09/2015 [facility] Diastolic (mm Hg) 82 02/09/2015 [facility] BMI Calculated 31.47 02/09/2015 [facility] Weight 108.182 02/09/2015 [facility] Height 185.42 cm 02/09/2015 [facility] Systolic (mm Hg) 189 02/09/2015 [facility] Diastolic (mm Hg) 97 02/09/2015 [facility] Heart Rate 77 02/09/2015 [facility] Respitory Rate 16 02/09/2015 [facility] Systolic (mm Hg) 172 01/23/2015 [facility] Diastolic (mm Hg) 79 01/23/2015 [facility] Systolic (mm Hg) 174 01/23/2015 [facility] Diastolic (mm Hg) 92 01/23/2015 [facility] Systolic (mm Hg) 184 01/23/2015 [facility] Diastolic (mm Hg) 86 01/23/2015 [facility] Respitory Rate 18 01/23/2015 [facility] Weight 104.545 01/23/2015 [facility] Height 185.42 cm 01/23/2015 [facility] BMI Calculated 30.41 01/23/2015 [facility] Respitory Rate 18 01/23/2015 [facility] Heart Rate 92 01/23/2015 [facility] Temperature Oral (F) 98.5 F 01/23/2015 [facility] Encounters Location Location Encounter Encounter Reason Attending ADM DC Status Source Details Type Number For Provider Date Date Visit [facility] [id number] Nabeel 10/31 11/30 [facility]2013 [facility] EC Emergency [id number] Edozie 01/23 01/23 [facility] Lisandra /2014 [facility] EC Emergency [id number] [place] 02/09 02/09 [facility] /2014 [facility] OBS [id number] Juan 02/15 02/16 [facility] /2014 [facility] Inpatient [id number] Abbas 01/30 02/17 [facility] [place] [facility] /2015 [facility] Emergency [id number] Blanche 03/13 03/14 [facility] /2015 [facility] Outpatient [id number] Abb 04/05 04/06 [facility] [place] Kari /2015 [facility] Procedures Procedure Code Date Perfomer Comments Source Amputation of toe [id number] [facility] Amputation of [id number] 2 toes The toe<sup>1</sup> [place] [facility] transfusion [id number] [facility]
--- OUTSIDE RECORDS SUMMARY | 2018-05-01 13:30 | XMS REPORT ---
:1965 [facility] Address [address] [place] [address] Dr. Monsivais [address] [place] [id number] Care Team Providers Name Role Phone VICTOR [...] Value Reference Range Comments CULTURE (BEAKER) (test hust=8414) No growth in 5 days STOOL CULTURE + SHIGA [id number] 09:59:00 Test Item Value Reference Range Comments CULTURE (BEAKER) (test No Salmonella, Shigella or vdae=0150) Campylobacter isolated STOOL PATH [id number] 09:01:00 Test Item Value Reference Range Comments PATHOGEN EXAM CHARGED (BEAKER) (test aqrq=5539) Done BASIC METABOLIC [id number] 06:59:00 Test Item Value Reference Range Comments SODIUM (BEAKER) (test 137 meq/L 136-145 lqih=964) POTASSIUM (BEAKER) (test 3.6 meq/L 3.5-5.1 kvzp=188) CHLORIDE (BEAKER) (test 110 meq/L 98-107 rqnq=544) CO2 (BEAKER) (test 16 meq/L 22-29 ycoq=978) BLOOD UREA NITROGEN 18 mg/dL 7-21 (BEAKER) (test sjmv=815) CREATININE (BEAKER) (test 2.02 mg/dL 0.57-1.25 visf=139) GLUCOSE RANDOM (BEAKER) 91 mg/dL 70-105 (test cpfe=136) CALCIUM (BEAKER) (test 9.3 mg/dL 8.4-10.2 qhti=786) EGFR (BEAKER) (test 35 mL/min/1.73 sq m ESTIMATED GFR IS NOT nbej=0861) ACCURATE CREATININE CLEARANCE IN PREDICTING GLOMERULAR FILTRATION RATE. ESTIMATED GFR IS NOT APPLICABLE FOR DIALYSIS PATIENTS. SHIGA TOXIN [id number] 15:48:00 Test Item Value Reference Range Comments SHIGA TOXIN 1 (BEAKER) (test kgpa=9810) Not detected Not detected SHIGA TOXIN 2 (BEAKER) (test kemk=0750) Not detected Not detected CLOSTRIDIUM DIFFICILE TOXIN [id number] 15:13:00 Test Item Value Reference Range Comments CLOSTRIDIUM DIFFICILE TOXIN, PCR (BEAKER) (test Not Detected Not Detected rvro=0431) This qualitative real-time polymerase chain reaction assay [...] a positive result is not recommended.BLOOD GAS, [id number] 11:03:00 Test Item Value Reference Range Comments PH ARTERIAL (BEAKER) (test zhnb=771) 7.38 7.35-7.45 PCO2 ARTERIAL (BEAKER) (test ngxc=255) 28 mmHg 35-45 PO2 ARTERIAL (BEAKER) (test tzsf=308) 95 mmHg 80-90 O2 SATURATION ARTERIAL (BEAKER) (test ltab=681) 97.4 % 96.0-97.0 HCO3 ARTERIAL (BEAKER) (test icgw=990) 16 mmol/L 21-29 BASE EXCESS ARTERIAL (BEAKER) (test zwxd=928) -7.2 mmol/L -2.0-3.0 PATIENT TEMPERATURE (BEAKER) (test bbiw=8467) 36.5 C FIO2 (BEAKER) (test mzcx=2885) 21.0 % BASIC METABOLIC [id number] 05:14:00 Test Item Value Reference Range Comments SODIUM (BEAKER) (test 136 meq/L 136-145 uhqj=063) POTASSIUM (BEAKER) (test 3.9 meq/L 3.5-5.1 ycgk=765) CHLORIDE (BEAKER) (test 111 meq/L 98-107 uyfq=100) CO2 (BEAKER) (test 13 meq/L 22-29 iedi=307) BLOOD UREA NITROGEN 20 mg/dL 7-21 (BEAKER) (test gkmp=734) CREATININE (BEAKER) (test 2.70 mg/dL 0.57-1.25 bore=643) GLUCOSE RANDOM (BEAKER) 77 mg/dL 70-105 (test ibtn=617) CALCIUM (BEAKER) (test 9.3 mg/dL 8.4-10.2 mqtx=733) EGFR (BEAKER) (test 25 mL/min/1.73 sq m ESTIMATED GFR IS NOT frkw=3509) ACCURATE CREATININE CLEARANCE IN PREDICTING GLOMERULAR FILTRATION RATE. ESTIMATED GFR IS NOT APPLICABLE FOR DIALYSIS PATIENTS. PTH, [id number] 05:03:00 Test Item Value Reference Range Comments PARATHYROID HORMONE INTACT (BEAKER) (test 41.8 pg/mL 8.5-72.5 clbu=493) BASIC METABOLIC [id number] 07:10:00 Test Item Value Reference Range Comments SODIUM (BEAKER) (test 136 meq/L 136-145 gdgw=933) POTASSIUM (BEAKER) (test 3.4 meq/L 3.5-5.1 youe=784) CHLORIDE (BEAKER) (test 109 meq/L 98-107 qaje=063) CO2 (BEAKER) (test 15 meq/L 22-29 lqkm=798) BLOOD UREA NITROGEN 23 mg/dL 7-21 (BEAKER) (test jfqw=750) CREATININE (BEAKER) (test 3.91 mg/dL 0.57-1.25 fsxp=307) GLUCOSE RANDOM (BEAKER) 79 mg/dL 70-105 (test ujyq=069) CALCIUM (BEAKER) (test 8.9 mg/dL 8.4-10.2 kdzd=143) EGFR (BEAKER) (test 16 mL/min/1.73 sq m ESTIMATED GFR IS NOT cxvw=9092) ACCURATE CREATININE CLEARANCE IN PREDICTING GLOMERULAR FILTRATION RATE. ESTIMATED GFR IS NOT APPLICABLE FOR DIALYSIS PATIENTS. SODIUM, RANDOM [id number] 06:58:00 Test Item Value Reference Range Comments SODIUM URINE (BEAKER) (test oldm=503) 65 meq/L Reference Range: No NormalsPROTHROMBIN [id number] 06:47:00 Test Item Value Reference Range Comments PROTIME (BEAKER) (test wdnj=858) 14.5 seconds 11.7-14.7 INR (BEAKER) (test bxuo=684) 1.1 <=5.9 RECOMMENDED COUMADIN/WARFARIN INR THERAPY RANGESSTANDARD DOSE: 2.0 - 3.0 Includes: PROPHYLAXIS forvenous thrombosis, systemic embolization; TREATMENT for venous thrombosis and/or pulmonary embolus.HIGH RISK: Target INR is 2.5-3.5 for patients with mechanical heart valves.RAPID DRUG SCREEN, [id number] 15: 43:00 Test Item Value Reference Range Comments BARBITURATE URINE (BEAKER) (test ewza=561) Negative Negative BENZODIAZEPINE SCREEN URINE (BEAKER) (test Positive Negative ipkd=378) COCAINE (METAB.) SCREEN (BEAKER) (test txjv=4090) Negative Negative METHADONE SCREEN (BEAKER) (test xrqq=0803) Negative Negative OPIATE SCREEN URINE (BEAKER) (test gmkm=598) Negative Negative CANNABINOID SCREEN URINE (BEAKER) (test pobk=027) Negative Negative AMPH/METHAMPH SCREEN (BEAKER) (test ssao=2514) Negative Negative PHENCYCLIDINE SCREEN URINE (BEAKER) (test bleb=785) Negative Negative OXYCODONE SCREEN URINE (BEAKER) (test hawp=2782) Negative Negative DRUG CUTOFF CONC.Cocaine 300 ng/mL Cannabinoid 50 ng/mL Benzodiazepine 200 ng/mLBarbiturate 200 ng/ mLPhencyclidine 25 ng/mLOpiate 300 ng/mLMethadone 300 ng/mLAmphetamine/ 1000 ng/mL MethamphetamineOxycodone 300 ng/mLThis assay provides an unconfirmed qualitative test result for the clinical management of patients in emergency situations. Chain of custody not maintained. Some herf-kih-rjaffbs medications, as well as adulterants, may cause inaccurate results. Clinical correlation should be applied. A more comprehensive drug screen or confirmation of a detected drug may be performed upon request.URINE [id number] 14:33:00 Test Item Value Reference Range Comments CULTURE (BEAKER) (test sdxn=8941) No growth BASIC METABOLIC [id number] 08:09:00 Test Item Value Reference Range Comments SODIUM (BEAKER) (test 136 meq/L 136-145 ycoz=961) POTASSIUM (BEAKER) (test 3.5 meq/L 3.5-5.1 Specimen slightly zwwy=046) hemolyzed CHLORIDE (BEAKER) (test 107 meq/L 98-107 dszl=336) CO2 (BEAKER) (test 15 meq/L 22-29 rgln=422) BLOOD UREA NITROGEN 25 mg/dL 7-21 (BEAKER) (test beub=422) CREATININE (BEAKER) (test 4.75 mg/dL 0.57-1.25 Specimen slightly vkin=085) hemolyzed GLUCOSE RANDOM (BEAKER) 74 mg/dL 70-105 (test dxyv=601) CALCIUM (BEAKER) (test 8.5 mg/dL 8.4-10.2 yojl=691) EGFR (BEAKER) (test 13 mL/min/1.73 sq m ESTIMATED GFR IS NOT euha=4040) ACCURATE CREATININE CLEARANCE IN PREDICTING GLOMERULAR FILTRATION RATE. ESTIMATED GFR IS NOT APPLICABLE FOR DIALYSIS PATIENTS. CBC W/PLT COUNT & AUTO [id number] 06:38:00 Test Item Value Reference Range Comments WHITE BLOOD CELL COUNT (BEAKER) (test sfqx=391) 9.9 K/ L 3.5-10.5 RED BLOOD CELL COUNT (BEAKER) (test rmue=241) 4.01 M/ L 4.63-6.08 HEMOGLOBIN (BEAKER) (test hcvo=173) 13.2 GM/DL 13.7-17.5 HEMATOCRIT (BEAKER) (test dosq=979) 38.1 % 40.1-51.0 MEAN CORPUSCULAR VOLUME (BEAKER) (test asgx=087) 95.0 fL 79.0-92.2 MEAN CORPUSCULAR HEMOGLOBIN (BEAKER) (test 32.9 pg 25.7-32.2 xexf=449) MEAN CORPUSCULAR HEMOGLOBIN CONC (BEAKER) (test 34.6 GM/DL 32.3-36.5 mwrb=845) RED CELL DISTRIBUTION WIDTH (BEAKER) (test 13.1 % 11.6-14.4 rysl=601) PLATELET COUNT (BEAKER) (test sbdl=556) 121 K/CU MM 150-450 MEAN PLATELET VOLUME (BEAKER) (test rkhi=699) 10.1 fL 9.4-12.4 NUCLEATED RED BLOOD CELLS (BEAKER) (test 0 /100 WBC 0-0 ygla=315) NEUTROPHILS RELATIVE PERCENT (BEAKER) (test 73 % zcby=014) LYMPHOCYTES RELATIVE PERCENT (BEAKER) (test 17 % atai=303) MONOCYTES RELATIVE PERCENT (BEAKER) (test 8 % jteq=151) EOSINOPHILS RELATIVE PERCENT (BEAKER) (test 2 % mgej=596) BASOPHILS RELATIVE PERCENT (BEAKER) (test 0 % zfuk=746) NEUTROPHILS ABSOLUTE COUNT (BEAKER) (test 7.25 K/ L 1.78-5.38 robx=437) LYMPHOCYTES ABSOLUTE COUNT (BEAKER) (test 1.66 K/ L 1.32-3.57 rbze=023) MONOCYTES ABSOLUTE COUNT (BEAKER) (test 0.76 K/ L 0.30-0.82 hrcm=258) EOSINOPHILS ABSOLUTE COUNT (BEAKER) (test 0.19 K/ L 0.04-0.54 oron=730) BASOPHILS ABSOLUTE COUNT (BEAKER) (test 0.03 K/ L 0.01-0.08 kkmo=023) IMMATURE GRANULOCYTES-RELATIVE PERCENT (BEAKER) 0 % 0-1 (test qmgh=9354) U/S, RENAL, [id number] 22:34:00Reason for exam:->acute kidney injuryFINAL REPORT Renal [...] [place] Verified Date/Time: 2016 22:34:25 Reading Location:[facility] C0[facility] Consult Reading Room MR, BRAIN, WITHOUT [id number] 19:18:00Reason for exam:->Stroke evaluationFINAL REPORT MRI Brain [...] MDReport Verified Date/Time: 04/17/2017 19:18:34 Reading Location: [facility] Radiology Reading Room EEG MONITORING WITH VIDEO RECORDING EACH 24 [id number] 18:01:00DATE OF TEST: 04/17/2017 DATE OF REPORT 04/17/2017 ACC: [id number] EE Start time: 16:42 Stop time: 18: 44 ICD-10: R56.9 CPT Code: 37842 HISTORY: 51 y/o woman with history of [...] Shahnaz Davis MD Neurophysiology Attending URINALYSIS W/ [id number] 11:57:00 Test Item Value Reference Range Comments COLOR (BEAKER) (test szeo=541) Light Yellow CLARITY (BEAKER) (test bnag=727) Clear SPECIFIC GRAVITY UA (BEAKER) (test lmbo=345) 1.006 1.001-1.035 PH UA (BEAKER) (test fkmc=265) 6.0 5.0-8.0 PROTEIN UA (BEAKER) (test ssxf=667) 30 mg/dL Negative GLUCOSE UA (BEAKER) (test andi=783) Negative Negative KETONES UA (BEAKER) (test nhmx=915) Negative Negative BILIRUBIN UA (BEAKER) (test xqaf=971) Negative Negative BLOOD UA (BEAKER) (test eaas=218) Small Negative NITRITE UA (BEAKER) (test uldc=781) Negative Negative LEUKOCYTE ESTERASE UA (BEAKER) (test grwb=077) Large Negative UROBILINOGEN UA (BEAKER) (test ndsv=271) 0.2 mg/dL 0.2-1.0 RBC UA (BEAKER) (test lzhm=238) 7 /HPF WBC UA (BEAKER) (test glcd=851) 21 /HPF BACTERIA (BEAKER) (test psew=631) Occasional SQUAMOUS EPITHELIAL (BEAKER) (test vunv=925) < /HPF URIC ACID CRYSTALS (BEAKER) (test futh=4163) Rare SOURCE(BEAKER) (test reul=0471) Urine, Cooper EOSINOPHIL SMEAR, [id number] 11:56:00 Test Item Value Reference Range Comments EOSINOPHIL SMEAR, URINE (BEAKER) (test No EOS seen No EOS seen bihc=7959) CREATININE, RANDOM [id number] 11:24:00 Test Item Value Reference Range Comments CREATININE URINE (BEAKER) (test yysb=895) 69.7 mg/dL Reference Range: No NormalsSODIUM, RANDOM [id number] 11:24:00 Test Item Value Reference Range Comments SODIUM URINE (BEAKER) (test lxsp=712) 58 meq/L Reference Range: No NormalsUREA NITROGEN, RANDOM [id number] 11:24:00 Test Item Value Reference Range Comments UREA NITROGEN URINE (BEAKER) (test bdbq=248) 172 mg/dL Reference Range: No NormalsCREATINE KINASE (CK)2017-04-17 11:06:00 Test Item Value Reference Range Comments CREATINE KINASE TOTAL (BEAKER) (test dxhq=867) 136 U/L 29-200 BASIC METABOLIC [id number] 04:53:00 Test Item Value Reference Range Comments SODIUM (BEAKER) (test 137 meq/L 136-145 qzlz=136) POTASSIUM (BEAKER) (test 3.4 meq/L 3.5-5.1 cbwd=773) CHLORIDE (BEAKER) (test 105 meq/L 98-107 phet=548) CO2 (BEAKER) (test 21 meq/L 22-29 atvs=023) BLOOD UREA NITROGEN 19 mg/dL 7-21 (BEAKER) (test kvby=398) CREATININE (BEAKER) (test 3.75 mg/dL 0.57-1.25 dway=898) GLUCOSE RANDOM (BEAKER) 100 mg/dL 70-105 (test icjm=122) CALCIUM (BEAKER) (test 8.6 mg/dL 8.4-10.2 jfwn=578) EGFR (BEAKER) (test 17 mL/min/1.73 sq m ESTIMATED GFR IS NOT uzey=0651) ACCURATE CREATININE CLEARANCE IN PREDICTING GLOMERULAR FILTRATION RATE. ESTIMATED GFR IS NOT APPLICABLE FOR DIALYSIS PATIENTS. CBC W/PLT COUNT & AUTO [id number] 04:19:00 Test Item Value Reference Range Comments WHITE BLOOD CELL COUNT (BEAKER) (test ebtc=259) 12.0 K/ L 3.5-10.5 RED BLOOD CELL COUNT (BEAKER) (test zcjb=577) 4.19 M/ L 4.63-6.08 HEMOGLOBIN (BEAKER) (test ornb=661) 13.8 GM/DL 13.7-17.5 HEMATOCRIT (BEAKER) (test zstl=244) 40.4 % 40.1-51.0 MEAN CORPUSCULAR VOLUME (BEAKER) (test ryyu=197) 96.4 fL 79.0-92.2 MEAN CORPUSCULAR HEMOGLOBIN (BEAKER) (test 32.9 pg 25.7-32.2 fwrf=784) MEAN CORPUSCULAR HEMOGLOBIN CONC (BEAKER) (test 34.2 GM/DL 32.3-36.5 mzfb=574) RED CELL DISTRIBUTION WIDTH (BEAKER) (test 13.4 % 11.6-14.4 ntmw=929) PLATELET COUNT (BEAKER) (test uvqg=031) 118 K/CU MM 150-450 MEAN PLATELET VOLUME (BEAKER) (test lqbt=052) 9.5 fL 9.4-12.4 NUCLEATED RED BLOOD CELLS (BEAKER) (test 0 /100 WBC 0-0 crdg=184) NEUTROPHILS RELATIVE PERCENT (BEAKER) (test 77 % jaww=640) LYMPHOCYTES RELATIVE PERCENT (BEAKER) (test 15 % kygx=635) MONOCYTES RELATIVE PERCENT (BEAKER) (test 7 % axgt=513) EOSINOPHILS RELATIVE PERCENT (BEAKER) (test 1 % wxeb=355) BASOPHILS RELATIVE PERCENT (BEAKER) (test 0 % pnsi=610) NEUTROPHILS ABSOLUTE COUNT (BEAKER) (test 9.20 K/ L 1.78-5.38 qinf=051) LYMPHOCYTES ABSOLUTE COUNT (BEAKER) (test 1.78 K/ L 1.32-3.57 osgz=528) MONOCYTES ABSOLUTE COUNT (BEAKER) (test 0.82 K/ L 0.30-0.82 kxug=472) EOSINOPHILS ABSOLUTE COUNT (BEAKER) (test 0.12 K/ L 0.04-0.54 ryrg=856) BASOPHILS ABSOLUTE COUNT (BEAKER) (test 0.04 K/ L 0.01-0.08 jzte=099) IMMATURE GRANULOCYTES-RELATIVE PERCENT (BEAKER) 0 % 0-1 (test anfw=9984) EEG MONITORING WITH VIDEO RECORDING EACH 24 [id number] 17:57:00DATE OF TEST : 04/16/2017DATE OF REPORT 04/16/2017 ACC: [id number]: Start time: 08: 42 Stop time: 16:42ICD-10: R56.9CPT Code: 20143NSJRTLO: 51 y/o woman with history of epilepsy [...] report.Phoebe Villar MDEpilepsy Attending EEG AWAKE/ASLEEP AND [id number] 13:27:00Reason for exam:->status epilepticusDATE OF TEST: DATE OF REPORT 04/16/2017 ACC: [id number] EEart time: 08:21 Stop time: 08:42ICD-10: R56.9CPT Code: 73859MHMVZFV: 51 y/o woman with history of epilepsy [...] this report.Phoebe Villar MDEpilepsy Attending HEPATIC FUNCTION [id number] 12:59:00 Test Item Value Reference Range Comments TOTAL PROTEIN (BEAKER) (test 8.0 gm/dL 6.0-8.3 Specimen moderately hemolyzed dpsu=404) ALBUMIN (BEAKER) (test 3.8 g/dL 3.5-5.0 Specimen moderately hemolyzed ucii=1121) BILIRUBIN TOTAL (BEAKER) (test 0.3 mg/dL 0.2-1.2 Specimen moderately hemolyzed evzh=987) BILIRUBIN DIRECT (BEAKER) 0.1 mg/dL 0.1-0.5 Specimen moderately hemolyzed (test qgbx=330) ALKALINE PHOSPHATASE (BEAKER) 79 U/L 40-150 (test ivaa=570) AST (SGOT) (BEAKER) (test 34 U/L 5-34 Specimen moderately hemolyzed ruvi=598) ALT (SGPT) (BEAKER) (test 30 U/L 6-55 Specimen moderately ekbv=460) hemolyzed RAD, CHEST, 1 VIEW, NON [id number] 09:16:00Reason for exam:-> intubatedShould this be performed [...] Hernandez Verified Date/Time: 04/16/2017 09:16:32 Reading Location: [facility] Radiology Reading Room VITAMIN [id number] 07:31:00 Test Item Value Reference Range Comments VITAMIN B12 (BEAKER) (test meyk=269) 450 pg/mL 213-816 FOLATE, [id number] 07:31:00 Test Item Value Reference Range Comments FOLATE (BEAKER) (test xkoc=878) 8.0 ng/mL >=7.0 URINALYSIS W/ [id number] 07:09:00 Test Item Value Reference Range Comments COLOR (BEAKER) (test qucg=775) Light Yellow CLARITY (BEAKER) (test sysw=662) Hazy SPECIFIC GRAVITY UA (BEAKER) (test ovch=781) 1.008 1.001-1.035 PH UA (BEAKER) (test kdth=172) 6.0 5.0-8.0 PROTEIN UA (BEAKER) (test gdlh=957) 20 mg/dL Negative GLUCOSE UA (BEAKER) (test vixw=220) 200 mg/dL Negative KETONES UA (BEAKER) (test pjok=597) Negative Negative BILIRUBIN UA (BEAKER) (test xmtg=655) Negative Negative BLOOD UA (BEAKER) (test hkwj=915) Negative Negative NITRITE UA (BEAKER) (test tiqi=926) Negative Negative LEUKOCYTE ESTERASE UA (BEAKER) (test hhkt=929) Negative Negative UROBILINOGEN UA (BEAKER) (test ajvk=350) 0.2 mg/dL 0.2-1.0 RBC UA (BEAKER) (test sais=612) < /HPF WBC UA (BEAKER) (test mwwx=208) 1 /HPF BACTERIA (BEAKER) (test yvlo=336) Rare SQUAMOUS EPITHELIAL (BEAKER) (test ohcz=146) < /HPF HYALINE CASTS (BEAKER) (test yeam=004) 8 /LPF SOURCE(BEAKER) (test yplu=0852) [id number] 05:59:00 Test Item Value Reference Range Comments MAGNESIUM (BEAKER) (test 3.0 mg/dL 1.6-2.6 Specimen moderately hemolyzed izyj=857) [id number] 05:59:00 Test Item Value Reference Range Comments PHOSPHORUS (BEAKER) (test 3.0 mg/dL 2.3-4.7 Specimen moderately hemolyzed ceaz=995) BASIC METABOLIC [id number] 05:59:00 Test Item Value Reference Range Comments SODIUM (BEAKER) (test 137 meq/L 136-145 aaky=321) POTASSIUM (BEAKER) (test 3.8 meq/L 3.5-5.1 Specimen moderately hgwk=751) hemolyzed CHLORIDE (BEAKER) (test 99 meq/L 98-107 crih=227) CO2 (BEAKER) (test 23 meq/L 22-29 cubu=784) BLOOD UREA NITROGEN 14 mg/dL 7-21 (BEAKER) (test ncky=544) CREATININE (BEAKER) (test 1.48 mg/dL 0.57-1.25 Specimen moderately glxt=631) hemolyzed GLUCOSE RANDOM (BEAKER) 386 mg/dL 70-105 (test wzyw=920) CALCIUM (BEAKER) (test 8.0 mg/dL 8.4-10.2 jqgc=065) EGFR (BEAKER) (test 50 mL/min/1.73 sq m ESTIMATED GFR IS NOT joif=6181) ACCURATE CREATININE CLEARANCE IN PREDICTING GLOMERULAR FILTRATION RATE. ESTIMATED GFR IS NOT APPLICABLE FOR DIALYSIS PATIENTS. PROTHROMBIN [id number] 05:33:00 Test Item Value Reference Range Comments PROTIME (BEAKER) (test axig=876) 15.7 seconds 11.7-14.7 INR (BEAKER) (test wimz=819) 1.3 <=5.9 RECOMMENDED COUMADIN/WARFARIN INR THERAPY RANGESSTANDARD DOSE: 2.0 - 3.0 Includes: PROPHYLAXIS forvenous thrombosis, systemic embolization; TREATMENT for venous thrombosis and/or pulmonary embolus.HIGH RISK: Target INR is 2.5-3.5 for patients with mechanical heart valves.BLOOD GAS, [id number] 05:31:00 Test Item Value Reference Range Comments PH ARTERIAL (BEAKER) (test tosh=262) 7.34 7.35-7.45 PCO2 ARTERIAL (BEAKER) (test fkim=550) 43 mmHg 35-45 PO2 ARTERIAL (BEAKER) (test llkx=074) 123 mmHg 80-90 O2 SATURATION ARTERIAL (BEAKER) (test edpd=912) 98.2 % 96.0-97.0 HCO3 ARTERIAL (BEAKER) (test bewj=103) 22 mmol/L 21-29 BASE EXCESS ARTERIAL (BEAKER) (test fvld=758) -3.2 mmol/L -2.0-3.0 PATIENT TEMPERATURE (BEAKER) (test nddw=1528) 37.2 C FIO2 (BEAKER) (test zvpa=3104) 60.0 % CBC W/PLT COUNT & AUTO [id number] 05:08:00 Test Item Value Reference Range Comments WHITE BLOOD CELL COUNT (BEAKER) (test iats=012) 16.2 K/ L 3.5-10.5 RED BLOOD CELL COUNT (BEAKER) (test smhb=696) 4.53 M/ L 4.63-6.08 HEMOGLOBIN (BEAKER) (test lcvx=069) 14.9 GM/DL 13.7-17.5 HEMATOCRIT (BEAKER) (test szxr=614) 43.7 % 40.1-51.0 MEAN CORPUSCULAR VOLUME (BEAKER) (test dsbi=857) 96.5 fL 79.0-92.2 MEAN CORPUSCULAR HEMOGLOBIN (BEAKER) (test 32.9 pg 25.7-32.2 efvj=672) MEAN CORPUSCULAR HEMOGLOBIN CONC (BEAKER) (test 34.1 GM/DL 32.3-36.5 psnh=691) RED CELL DISTRIBUTION WIDTH (BEAKER) (test 13.2 % 11.6-14.4 ditt=424) PLATELET COUNT (BEAKER) (test mgac=308) 127 K/CU MM 150-450 MEAN PLATELET VOLUME (BEAKER) (test adyq=805) 10.0 fL 9.4-12.4 NUCLEATED RED BLOOD CELLS (BEAKER) (test 0 /100 WBC 0-0 amih=929) NEUTROPHILS RELATIVE PERCENT (BEAKER) (test 84 % nbez=010) LYMPHOCYTES RELATIVE PERCENT (BEAKER) (test 7 % jxgg=538) MONOCYTES RELATIVE PERCENT (BEAKER) (test 9 % ordw=664) EOSINOPHILS RELATIVE PERCENT (BEAKER) (test 0 % ytwl=103) BASOPHILS RELATIVE PERCENT (BEAKER) (test 0 % mszs=270) NEUTROPHILS ABSOLUTE COUNT (BEAKER) (test 13.58 K/ L 1.78-5.38 tnvo=174) LYMPHOCYTES ABSOLUTE COUNT (BEAKER) (test 1.06 K/ L 1.32-3.57 fcjh=546) MONOCYTES ABSOLUTE COUNT (BEAKER) (test 1.38 K/ L 0.30-0.82 qhtb=773) EOSINOPHILS ABSOLUTE COUNT (BEAKER) (test 0.01 K/ L 0.04-0.54 xmjp=253) BASOPHILS ABSOLUTE COUNT (BEAKER) (test 0.02 K/ L 0.01-0.08 lzwu=987) IMMATURE GRANULOCYTES-RELATIVE PERCENT (BEAKER) 1 % 0-1 (test jyqs=3842)
[2018-05-01 14:57] LABS: Absolute Lymphocytes (CBC) 2.3 K/uL (0.7-4.9); Absolute Monocytes 1.1 K/uL (0.1-1.3); Absolute Neutrophil 8.9 K/uL (1.8-8.0); Eosinophils % 0.2 % (0-4.4); Lymphocytes % 18.4 % (15.3-44.8); MCV 96.1 fL (80-100); MPV 7.9 fL (7.6-11.3); Monocytes % 8.8 % (3.3-12.3); RBC Red Blood Cell Count 5.62 M/uL (4.33-5.43)
[2018-05-01 15:15] LABS: ALT/SGPT 25 U/L (12-78); AST/SGOT 19 U/L (15-37); Albumin 4.3 g/dL (3.4-5.0); Alkaline Phosphatase 88 U/L (45-117); BUN Blood Urea Nitrogen 23 mg/dL (7-18); Bicarbonate 25 mmol/L (21-32); Bilirubin Direct 0.2 mg/dL (0-0.2); Bilirubin Total 0.6 mg/dL (0.2-1.0); Glucose Level 97 mg/dL (74-106); Potassium 3.9 mmol/L (3.5-5.1); Protein, Total 9.1 g/dL (6.4-8.2); Sodium Level 136 mmol/L (136-145)
--- NOTE | 2018-05-01 15:15 | RAD REPORT ---
EXAM DESCRIPTION: CT - Head C Spine Mpr Wo Con - 05/01/2018 2:48 pm CLINICAL HISTORY: Seizure with Head and neck injury and head and neck pain COMPARISON: February [address] TECHNIQUE: Computed axial tomography of the head and cervical spine was obtained. Sagittal and coronal reconstruction was performed. All CT scans are performed using dose optimization technique as appropriate and may include automated exposure control or mA/KV adjustment according to patient size. FINDINGS: Mild low-density areas within periventricular and deep white matter likely represent ische javier changes secondary to small vessel disease. An intracranial bleed is not seen. The ventricles are normal in caliber. An extra-axial fluid collect ion is not noted.Fluid within the visualized sinuses and mastoids is not seen A cervical fracture is not visualized. No dislocation is noted. Spondylosis involves the cervical spi ne. A right Cade's duct stone is unchanged IMPRESSION: No acute intracranial abnormality is seen. A cervical fracture is not visualized. If the patient continues to have symptoms to suggest intracra nial /spinal cord pathology then MRI would be recommended
[2018-05-01 15:20] LABS: Protime INR 1.07
--- NOTE | 2018-05-01 15:33 | EKG ---
Test Date: 2018-05-01 Test Time: 13:55:09 Object Oriented Programmer: SHADI MEASUREMENT RESULTS: Intervals: Rate: 101 SD: 132 QRSD: 90 QT: 340 QTc: 440 [place]: P: 84 SD: 132 QRS: 59 T: 77 INTERPRETIVE STATEMENTS: Sinus tachycardia Otherwise normal ECG Compared to ECG 03/21/2018 11:08:26 ST (T wave) deviation no longer present Electronically Signed On 05-01-18 15:32:39 PULLER MACHINE by Parveen Perry
[2018-05-01] MEDS ORDERED: NA CHLORIDE 0.9% 1,000 ML ONE (16:03)
[2018-05-01] MEDS ORDERED: HYDROCODONE/APAP 5/325 MG TAB ONE (16:09)
[2018-05-01] MEDS ORDERED: levETIRAcetam 1,000 MG in NA CHLORIDE 0.9% 100 ML IV ONE (17:00)
--- NOTE | 2018-05-01 17:20 | ER ---
Nurse's Notes [facility] Name: Karlos Leblanc Age: 52 yrs Sex: Male : 1965 Arrival Date: 05/01/2018 Time: 13:20 Bed 23 Private MD: None, None Diagnosis: Epilepsy and recurrent seizures Presentation: 05/01 13:25 Note name called twice, no answer, no one by that name inside ER at this time. tw2 13:49 Presenting complaint: Patient states: i had a seizure 3 oclock Sunday morning, my home tw2 health nurse told me to come here and get checked out. Presenting complaint: Patient states: i also have been throwing up and having nausea and diarrhea. Transition of care: patient was not received from another setting of care. Onset of symptoms was May 01, 2018. Risk Assessment: Do you want to hurt yourself or someone else? Patient reports no desire to harm self or others. Initial Sepsis Screen: Does the patient meet any 2 criteria? No. Patient's initial sepsis screen is negative. Does the patient have a suspected source of infection? No. Patient's initial sepsis screen is negative. Care prior to arrival: None. 13:49 Method Of Arrival: Ambulatory tw2 13:49 Acuity: KENIA 3 tw2 Historical: - Allergies: 13:51 NKDA; tw2 - Home Meds: 17:58 VITAMIN B1 100 MG DAILY [Active]; naproxen sodium 220 mg Oral cap [Active]; Santyl 250 mg2 unit/gram Topical oint once daily [Active]; lisinopril 10 mg Oral tab 1 tab once daily [Active]; ibuprofen 200 mg Oral tab 2 tabs every 4-6 hours [Active]; gabapentin 100 mg Oral cap 2 caps 3 times per day [Active]; clopidogrel 75 mg Oral tab 1 tab once daily [Active]; Centrum Oral [Active]; atorvastatin 80 mg Oral tab 1 tab once daily [Active]; aspirin 81 mg Oral chew 1 tab once daily [Active]; amlodipine 10 mg tab 1 tab once daily [Active]; acetic acid topical [Active]; - PMHx: 13:51 CHF; CVA; COPD; Myocardial infarction; PVD; Seizures; tw2 - PSHx: 13:51 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 - Social history:: Smoking status: Patient uses tobacco products, smokes one pack cigarettes per day. Smoking status: Patient uses tobacco products. - Ebola Screening: : Patient denies travel to an Ebola-affected area in the 21 days before illness onset. Screenin:13 Abuse screen: Denies threats or abuse. Denies injuries from another. Nutritional aj1 screening: No deficits noted. Tuberculosis screening: No symptoms or risk factors identified. 17:58 Fall Risk Secondary diagnosis (15 points) seizures, IV access (20 points). mg2 Assessment: 14:13 General: Appears in no apparent distress. uncomfortable, Behavior is calm, cooperative, aj1 appropriate for age. Pain: Complains of pain in scalp Pain currently is 6 out of 10 on a pain scale. Neuro: Level of Consciousness is awake, alert, obeys commands, Oriented to person, place, time, situation, Speech is normal, Reports he has a seizure at 0300 Sunday morning, his friends told him that he refused EMS when it happened, but he does not remember that. Cardiovascular: Patient's skin is warm and dry. Respiratory: Airway is patent Respiratory effort is even, unlabored, Respiratory pattern is regular, symmetrical. GI: Abdomen is non-distended, Reports diarrhea, nausea, vomiting. : No signs and/or symptoms were reported regarding the genitourinary system. EENT: No signs and/or symptoms were reported regarding the EENT system. Derm: No signs and/or symptoms reported regarding the dermatologic system. Skin is pink, warm \T\ dry. normal. Musculoskeletal: No signs and/or symptoms reported regarding the musculoskeletal system. Circulation, motion, and sensation intact. 15:32 Reassessment: Patient appears in no apparent distress at this time. No changes from aj1 previously documented assessment. Patient and/or family updated on plan of care and expected duration. Pain level reassessed. Patient is alert, oriented x 3, equal unlabored respirations, skin warm/dry/pink. 16:30 Reassessment: Patient appears in no apparent distress at this time. No changes from aj1 previously documented assessment. Patient and/or family updated on plan of care and expected duration. Pain level reassessed. Patient is alert, oriented x 3, equal unlabored respirations, skin warm/dry/pink. 17:13 Reassessment: Patient appears in no apparent distress at this time. No changes from aj1 previously documented assessment. Patient and/or family updated on plan of care and expected duration. Pain level reassessed. Patient is alert, oriented x 3, equal unlabored respirations, skin warm/dry/pink. Vital Signs: 13:50 BP 141 / 93; Pulse 101; Resp 16; Temp 99.8(O); Pulse Ox 96% on R/A; Pain 4/10; tw2 15:32 BP 137 / 96; Pulse 97; Resp 20; Pulse Ox 100% on R/A; aj1 16:30 BP 146 / 92; Pulse 88; Resp 18; Pulse Ox 99% ; aj1 17:15 BP 151 / 82; Pulse 75; Resp 18; Pulse Ox 97% on R/A; aj1 17:56 BP 138 / 83; Pulse 80; Resp 18; Pulse Ox 100% on R/A; Pain 0/10; mg2 Patricia Coma Score: 17:59 Eye Response: spontaneous(4). Verbal Response: oriented(5). Motor Response: obeys mg2 commands(6). Total: 15. ED Course: 13:20 Patient arrived in ED. sb2 13:20 None, None is Private Physician. sb2 13:50 Triage completed. tw2 13:51 Arm band placed on. tw2 13:57 Stevie Payne PA is PHCP. jm 13:57 German Guerin MD is Attending Physician. jm 13:58 Kell Jane, TAVO is Primary Nurse. aj1 14:00 EKG done, by tablet technician. reviewed by German Guerin MD. vh 14:13 Patient has correct armband on for positive identification. Bed in low position. Call aj1 light in reach. Side rails up X 1. 14:13 No provider procedures requiring assistance completed. aj1 17:18 Anibal Escobar MD is Referral Physician. jmm 17:52 IV discontinued, intact, bleeding controlled, No redness/swelling at site. Pressure mg2 dressing applied. 17:57 Seizure precautions initiated. mg2 Administered Medications: 16:26 Drug: NS 0.9% 1000 ml Route: IV; Rate: 1 bolus; Site: right antecubital; ph 17:30 Follow up: IV Status: Completed infusion; IV Intake: 1000ml aj1 16:26 Drug: [place] 5 mg-325 mg 1 tabs Route: PO; ph 17:52 Follow up: Response: No adverse reaction aj1 17:08 Drug: Keppra 1000 mg Route: IV; Rate: calculated rate; Site: right antecubital; aj1 17:27 Follow up: IV Status: Completed infusion; IV Intake: 100ml aj1 Intake: 17:27 IV: 100ml; Total: 100ml. aj1 17:30 IV: 1000ml; Total: 1100ml. aj1 Outcome: 17:19 Discharge ordered by . nirmal 17:56 Discharged to home ambulatory. mg2 17:56 Condition: stable 17:56 Discharge instructions given to patient, Instructed on discharge instructions, follow up and referral plans. medication usage, Demonstrated understanding of instructions, follow-up care, medications, Prescriptions given X 1. 18:00 Patient left the ED. mg2 Signatures: Kell Jane, RN RN aj1 Stevie Payne PA PA jmm Harrell, Venessa vh Hall, Patricia, RN RN Jailene Yi RN RN 2 Linette Dumas [facility] Cristhian Garduno RN RN mg2
--- NOTE | 2018-05-01 17:20 | EDPHYS ---
Physician Documentation [facility] Name: Karlos Leblanc Age: 52 yrs Sex: Male : 1965 Arrival Date: 05/01/2018 Time: 13:20 Bed 23 Private MD: None, None ED Physician German Guerin HPI: 05/01 14:18 This 52 yrs old Male presents to ER via Ambulatory with complaints of jmm Probable Seizure. 14:18 The patient presents after having a single isolated seizure. Character of seizure(s): jmm Loss of consciousness: the patient experienced loss of consciousness, Motor activity: generalized. Seizure onset: today. Seizure Hx: Seizure medications:. Associated injury: Head/face:. Current symptoms: Currently, the patient is not experiencing any symptoms. This is a 52 year old male complaining of headache after a seizure which occurred earlier today. Was witnessed by friends. Patient states having a history of seizure. States he takes his antiseizure medication. Patient states he has been stressed recently with decreased sleep. . Historical: - Allergies: 13:51 NKDA; tw2 - Home Meds: 17:58 VITAMIN B1 100 MG DAILY [Active]; naproxen sodium 220 mg Oral cap [Active]; Santyl 250 mg2 unit/gram Topical oint once daily [Active]; lisinopril 10 mg Oral tab 1 tab once daily [Active]; ibuprofen 200 mg Oral tab 2 tabs every 4-6 hours [Active]; gabapentin 100 mg Oral cap 2 caps 3 times per day [Active]; clopidogrel 75 mg Oral tab 1 tab once daily [Active]; Centrum Oral [Active]; atorvastatin 80 mg Oral tab 1 tab once daily [Active]; aspirin 81 mg Oral chew 1 tab once daily [Active]; amlodipine 10 mg tab 1 tab once daily [Active]; acetic acid topical [Active]; - PMHx: 13:51 CHF; CVA; COPD; Myocardial infarction; PVD; Seizures; tw2 - PSHx: 13:51 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 - Social history:: Smoking status: Patient uses tobacco products, smokes one pack cigarettes per day. Smoking status: Patient uses tobacco products. - Ebola Screening: : Patient denies travel to an Ebola-affected area in the 21 days before illness onset. ROS: 14:18 Constitutional: Negative for fever, chills, and weight loss, Cardiovascular: Negative [facility] for chest pain, palpitations, and edema, Respiratory: Negative for shortness of breath, cough, wheezing, and pleuritic chest pain. 14:18 Neuro: Positive for headache. 14:18 All other systems are negative. Exam: 14:18 Constitutional: This is a well developed, well nourished patient who is awake, alert, jmm and in no acute distress. Head/Face: atraumatic. Eyes: EOMI, no conjunctival erythema appreciated ENT: Moist Mucus Membranes Neck: Trachea midline, Supple Chest/axilla: Normal chest wall appearance and motion. Cardiovascular: Regular rate and rhythm. No edema appreciated Respiratory: Normal respirations, no respiratory distress appreciated Abdomen/GI: Non distended, soft Back: Normal ROM Skin: General appearance color normal MS/ Extremity: Moves all extremities, no obvious deformities appreciated, no edema noted to the lower extremities Neuro: Awake and alert, normal gait Psych: Behavior is normal, Mood is normal, Patient is cooperative and pleasant Vital Signs: 13:50 BP 141 / 93; Pulse 101; Resp 16; Temp 99.8(O); Pulse Ox 96% on R/A; Pain 4/10; tw2 15:32 BP 137 / 96; Pulse 97; Resp 20; Pulse Ox 100% on R/A; aj1 16:30 BP 146 / 92; Pulse 88; Resp 18; Pulse Ox 99% ; aj1 17:15 BP 151 / 82; Pulse 75; Resp 18; Pulse Ox 97% on R/A; aj1 17:56 BP 138 / 83; Pulse 80; Resp 18; Pulse Ox 100% on R/A; Pain 0/10; mg2 [place] Coma Score: 17:59 Eye Response: spontaneous(4). Verbal Response: oriented(5). Motor Response: obeys mg2 commands(6). Total: 15. MDM: 14:13 Patient medically screened. [facility] 16:00 Data reviewed: vital signs, nurses notes. [facility] 16:21 Counseling: I had a detailed discussion with the patient and/or guardian regarding: the [facility] historical points, exam findings, and any diagnostic results supporting the discharge/admit diagnosis, lab results, the need for outpatient follow up, to return to the emergency department if symptoms worsen or persist or if there are any questions or concerns that arise at home. ED course: I discussed the patient with Dr. Escobar whom recommends sherrell and will follow up with patient. 05/01 14:14 Order name: Acetaminophen [facility] 05/01 14:14 Order name: Basic Metabolic Panel [facility] 05/01 14:14 Order name: CBC with Diff [facility] 05/01 14:14 Order name: ETOH Level [facility] 05/01 14:14 Order name: Hepatic Function [facility] 05/01 14:14 Order name: PT-INR [facility] 05/01 14:14 Order name: Ptt, Activated [facility] 05/01 14:14 Order name: Salicylate [facility] 05/01 14:14 Order name: Urine Drug Screen [facility] 05/01 14:24 Order name: Troponin (emerg Dept Use Only) [facility] 05/01 14:24 Order name: CPK [facility] 05/01 15:08 Order name: CBC with Automated Diff; Complete Time: 15:18 EDMS 05/01 15:15 Order name: Alcohol Serum/Plasma; Complete Time: 15:18 EDMS 05/01 15:21 Order name: Basic Metabolic Panel; Complete Time: 15:21 EDMS 05/01 14:14 Order name: EKG; Complete Time: 14:15 [facility] 05/01 14:14 Order name: EKG - Nurse/Tech; Complete Time: 14:16 [facility] 05/01 14:14 Order name: IV Saline Lock; Complete Time: 15:04 [facility] 05/01 14:14 Order name: Labs collected and sent; Complete Time: 15:04 [facility] 05/01 14:14 Order name: CT Head C Spine [facility] 05/01 15:16 Order name: CT; Complete Time: 15:18 EDMS 05/01 15:21 Order name: Liver (Hepatic) Function; Complete Time: 15:21 MS 05/01 15:21 Order name: Acetaminophen Level; Complete Time: 15:21 EDMS 05/01 15:43 Order name: Protime (+INR); Complete Time: 15:55 EDMS 05/01 15:43 Order name: PTT, Activated Partial Thromb; Complete Time: 15:55 EDMS 05/01 16:43 Order name: Salicylates Level; Complete Time: 17:18 EDMS Administered Medications: 16:26 Drug: NS 0.9% 1000 ml Route: IV; Rate: 1 bolus; Site: right antecubital; ph 17:30 Follow up: IV Status: Completed infusion; IV Intake: 1000ml [facility] 16:26 Drug: [place] 5 mg-325 mg 1 tabs Route: PO; ph 17:52 Follow up: Response: No adverse reaction aj1 17:08 Drug: Keppra 1000 mg Route: IV; Rate: calculated rate; Site: right antecubital; aj1 17:27 Follow up: IV Status: Completed infusion; IV Intake: 100ml [facility] Disposition: 18:38 Co-signature as Attending Physician, German Guerin MD. rn Disposition: 05/01/18 17:19 Discharged to Home. Impression: Epilepsy and recurrent seizures. - Condition is Stable. - Discharge Instructions: Seizure, Adult. - Prescriptions for Keppra 500 mg Oral Tablet - take 1 tablet by ORAL route every 12 hours; 60 tablet. - Medication Reconciliation Form, Thank You Letter, Antibiotic Education, Prescription Opioid Use form. - Follow up: Anibal Escobar MD; When: 2 - 3 days; Reason: Recheck today's complaints, Continuance of care, Re-evaluation by your physician. Signatures: Dispatcher [employer] EDKell Del Rio RN RN aj1 Stevie Payne PA PA jmm Nieto, Roman, MD MD rn Kelsey Contreras RN RN Jailene Yi, RN RN tw2 Cristhian Garduno RN RN mg2 Corrections: (The following items were deleted from the chart) 18:00 17:19 05/01/2018 17:19 Discharged to Home. Impression: Epilepsy and recurrent seizures. mg2 Condition is Stable. Forms are Medication Reconciliation Form, Thank You Letter, Antibiotic Education, Prescription Opioid Use. Follow up: Anibal Escobar; When: 2 - 3 days; Reason: Recheck today's complaints, Continuance of care, Re-evaluation by your physician. nirmal
[2018-05-01 18:06] VITALS: TEMP 99.8
[2018-05-01 18:11] VITALS: BP 138/83; O2SAT 100
== END 2018-05-01 18:00 | disposition home or self-care (01) ==
LOC: ER 13:19
DX: G40.802 Other epilepsy, not intractable, without status epilepticus (principal); F17.210 Nicotine dependence, cigarettes, uncomplicated; I50.9 Heart failure, unspecified; J44.9 Chronic obstructive pulmonary disease, unspecified; I25.2 Old myocardial infarction; Z79.82 Long term (current) use of aspirin
CPT/HCPCS: 36415; 70450; 72125; 80048; 80076; 80320; 80329 ×2; 85025; 85610; 85730; 93005; J1953; J7030

== ENCOUNTER 2018-08-07 14:49 | Emergency (ER) | payer OTHER ==
--- OUTSIDE RECORDS SUMMARY | 2018-08-07 14:52 | XMS REPORT | Clinical Summary ---
:1965 Author Organization [facility] Address [address] [place] [address] Care Team Providers Name Role Phone Unavailable Primary Care Provider Unavailable Allergies Active Allergy Reactions Severity Noted Date Comments Morphine 04/16/2017 Medications Medication Sig Dispensed Refills Start Date End Date Status benzocaine (ORAJEL) Use as directed in 9.45 g 0 04/21/2017 Active 7.5 % oral gel the mouth or throat 3 (three) times daily as needed for Pain. Active Problems Problem Noted Date Metabolic acidosis [...] Not on file Results Not on fileafter 08/06/2017 Insurance Payer Benefit Plan / Subscriber ID Type Phone Address Group [employer] - [employer] MED[employer]ARE xxxxxxxx [facility] Contracted [phone] MEDICARE [employer] HMO POS [id number] [place] [address]
--- OUTSIDE RECORDS SUMMARY | 2018-08-07 15:02 | XMS REPORT | Continuity of Care Document ---
:1965 Author Organization Interface Problems Problem Status Onset Classification Date Comments Source Date Reported ANEMIA Active 04/04/20 The 16 [place] Discharge 03/14/20 03/17/2016 The Diagnosis: Acute 16 [place] on chronic renal failure Discharge 03/14/20 03/17/2016 The Diagnosis: Anemia 16 [place] Discharge 03/14/20 03/17/2016 The Diagnosis: [address] [place] [address] Post-operative pain Discharge 03/14/20 03/17/2016 The Diagnosis: Acute 16 [place] hypokalemia OTHER Active 03/13/20 The 16 [place] FOOT GANGRENE Active 01/31/20 The 16 [place] LEFT FOOT SORES Active 01/31/20 The 16 [place] Discharge 02/17/20 02/19/2015 The Diagnosis: 15 [place] Hyperlipidemia Discharge 02/17/20 02/19/2015 The Diagnosis: 15 [place] Hypertension Discharge 02/17/20 02/19/2015 The Diagnosis: Angina 15 [place] pectoris CHEST PAIN Active 02/16/20 The 15 [place] CP Active 02/16/20 The 15 [place] Discharge 02/10/20 02/12/2015 The Diagnosis: Wrist 15 [place] sprain LEFT WRIST PAIN Active 02/10/20 The 15 [place] Discharge 01/24/20 01/26/2015 The Diagnosis: 15 [place] Epileptic seizure, generalized Discharge 01/24/20 01/26/2015 The Diagnosis: 15 [place] Cerebral seizure AMS Active 01/24/20 The 15 [place] WOUND INFECTION V Active 10/21/19 The NECFAS;CHRONIC 14 [place] OSTEOMY Acute Active Problem 04/08/2016 The osteomyelitis [place] CHF - Congestive Active Problem 04/08/2016 The heart failure [place] HTN (<span Active Problem 04/08/2016 The ID="[id number]"> [place] Confirmed</span>) Bronchitis Active Problem 04/08/2016 [place] COPD Active Problem 04/08/2016 [place] Nose bleed Active Problem 04/08/2016 [place] Seizure Active Problem 04/08/2016 [place] H/O candidiasis Active Problem 04/08/2016 [place] H/O amputation of Active Problem 04/08/2016 The lesser toe [place] Hx of peripheral Active Problem 04/08/2016 The vascular disease [place] BPH (<span Active Problem 04/08/2016 The ID="[id number]" [place] >Confirmed</span> ) CELLULITIS OF Active The FOOT [place] AC Active [facility] The OSTEOMYELITIS-UNS [place] PEC CHEST PAIN NOS Active [place] GANGRENE, NOT Active The ELSEWHERE [place] CLASSIFIED ANEMIA, Active The UNSPECIFIED [place] Medications Medication Details Route Status Patient Ordering Order Source Instructions Provider Date Sodium Chloride IVPB, 150 Active The 0.9% IV ml/hr, PRN, 2015 [place] Start date: 04/05/16 8:00:00 [employer], Duration: 30, 1,000 ml EPINEPHrine 0.5 mg, 0.5 Active The mL, Route: 2015 [place] IVP, Drug form: INJ, PRN, PRN Other -See Comment, Start date: 04/05/16 7:22:00 [employer], Duration: 30 day, Stop date: 05/05/16 7:21:00 CSTNotes: MEDICATION WASTE Product Size: 1 mg Product Wasted: ___ mg Solu-CORTEF 100 mg, 2 mL, Active The Route: IVP2015 [place] Drug form: PDR/INJ, PRN, PRN Other -See Comment, Start date: 04/05/16 7:22:00 [employer], Duration: 30 day, Stop date: 05/05/16 7:21:00 CSTNotes: (Same as: Solu-CORTEF) Benadryl 50 mg, 1 mL, Active The Route: IVP, 2015 [place] Drug form: INJ, PRN, PRN Other -See Comment, Start date: 04/05/16 7:22:00 [employer], Duration: 30 day, Stop date: 05/05/16 7:21:00 CSTNotes: (Same as: Benadryl) Sodium Chloride IV, 0 ml/hr, Active The 0.9% IV PRN, PRN Blood 2015 [place] Transfusion, Start date: 04/05/16 7:21:00 [employer], Duration: 30, 250 ml heparin flush 500 unit, 5 Active The mL, Route: 2015 [place] IVP, Drug form: SOLN, PRN, PRN Line Flush, Start date: 04/05/16 7:21:00 [employer], Duration: 30 day, Stop date: 05/05/16 7:20:00 CSTNotes: (Same as: Heparin Lock Flush) BD Normal Saline 20 mL, Route: Active The Flush IVP, Drug 2015 [place] Form: INJ, PRN, PRN Line Flush, Start date: 04/05/16 7:21:00 [employer], Duration: 30 day, Stop date: 05/05/16 7:20:00 CSTNotes: (Same as: BD Posiflush) Benadryl 25 mg, 0.5 mL, Active The Route: IVP, 2015 [place] Drug form: INJ, Before Transfusion, PRN Blood Transfusion, Start date: 04/05/16 7:21:00 [employer], Duration: 30 day, Stop date: 05/05/16 7:20:00 CSTNotes: (Same as: Benadryl) Tylenol 650 mg, 2 tab, Active The Route: PO, 2015 [place] Drug form: TAB, Before Transfusion, PRN Blood Transfusion, Start date: 04/05/16 7:20:00 [employer], Duration: 30 day, Stop date: 05/05/16 7:19:00 CSTNotes: Do not exceed 4 gm/day. (Same as: Tylenol) Acetaminophen 325 1 tab, Route: Inactive The MG / Hydrocodone PO, Drug Form: 2015 [place] Bitartrate 5 MG TAB, Dosing Oral Tablet [[place] Weight 98.636, 5/325] kg, ONCE, STAT, Start date: 03/14/16 6:34:00 CDT, Stop date: 03/14/16 6:34:00 CDTNotes: (Same as: [place] 325/5) Do not exceed 4gm/day of acetaminophen. Acetaminophen 300 1 tab, PO, No Longer The MG / Codeine Q4H, PRN Pain, Active 2015 [place] Phosphate 30 MG X 2 day, # 12 Oral Tablet tab, 0 [Tylenol with Refill(s) Codeine #3] Zofran 4 mg, 2 mL, No Longer The Route: IVP, Active 2015 [place] Drug form: INJ, ONCE, Dosing Weight 98.636, kg, Priority: STAT, Start date: 03/13/16 23:18:00 CDT, Stop date: 03/13/16 23:18:00 CDTNotes: (Same as: Zofran) MEDICATION WASTE Product Size: 4 mg Product Wasted: ___ mg Dilaudid 0.5 mg, 0.5 No Longer The mL, Route: Active 2015 [place] IVP, Drug form: INJ, ONCE, Dosing Weight 98.636, kg, Priority: STAT, Start date: 03/13/16 23:18:00 CDT, Stop date: 03/13/16 23:18:00 CDTNotes: Same as: Dilaudid Sodium Chloride 500 mL, 500 No Longer The 0.154 MEQ/ML ml/hr, Infuse Active 2015 [place] Injectable Over: 1 hr, Solution Route: IV, 500, Drug form: INJ, ONCE, Priority: STAT, Dosing Weight 98.636 kg, Start date: 03/13/16 23:18:00 CDT, Duration: 1 doses or times, Stop date: 03/13/16 23:18:00 CDT Oxycodone 15 mg=3 tab, Active The Hydrochloride 5 MG PO, Q4H, PRN 2015 [place] Oral Tablet Pain Score 7-10, 0 Refill(s) Oxycodone 15 mg, 3 tab, Inactive The Hydrochloride 5 MG Route: PO, 2015 [place] Oral Tablet Drug form: TAB, Q4H, Dosing Weight 96.023, kg, PRN Pain Score 7-10, Start date: 02/18/16 8:43:00 CDT, Duration: 30 day, Stop date: 03/19/16 8:42:00 CDTNotes: (Same as: Roxicodone) Ceftriaxone 2 gm, Route: No Longer The IVPB, [id number], Active 2015 [place] Dosing Weight 96.023, kg, Start date: 02/17/16 15:00:00 CDT, Duration: 30 day, Stop date: 03/17/16 15:00:00 CDTNotes: (Same As: Rocephin). Use with 100 mL NS and infuse over 30 min MEDICATION WASTE Product Size: 2000 mg Product Wasted: ___ mg Albuterol 0.83 NEB, PRN, PRN Active The MG/ML Inhalant Respiratory 2015 [place] Solution Protocol, 0 Refill(s) chlorhexidine 1 appl, BATHE, Active The gluconate 40 MG/ML Q-M-W-F, 0 2015 [place] Medicated Liquid Refill(s) Soap tamsulosin 0.4 mg 0.4 mg=1 cap, Active The oral capsule PO, After 2015 [place] Dinner, 0 Refill(s) fluconazole 100 mg 200 mg=2 tab, Active The oral tablet PO, [id number], 0 2015 [place] Refill(s) pantoprazole 40 mg 40 mg=1 tab, Active The oral enteric PO, Before 2015 [place] coated tablet Breakfast, 0 Refill(s) Acetaminophen 325 1 tab, PO, Active The MG / Hydrocodone Q4H, PRN Pain 2015 [place] Bitartrate 5 MG Score 1-3, 0 Oral Tablet Refill(s) cefTRIAXone + 2 gm, Route: No Longer The sodium chloride IVPB, [id number], Active 2015 [place] 0.9% INJ 100 mL Dosing Weight 96.023, kg, Start date: 02/15/16 18:00:00 CDT, Duration: 2 day, Stop date: 02/16/16 18:00:00 CDTNotes: (Same As: Rocephin). Use with 100 mL NS and infuse over 30 min MEDICATION WASTE Product Size: 2000 mg Product Wasted: ___ mg Flomax 0.4 mg, 1 cap, No Longer The Route: PO, Active 2015 [place] Drug form: CAP, After Dinner, Dosing Weight [...] No Longer The Route: PO, Active 2015 [place] Drug form: TAB, [id number], Dosing Weight 96.023, kg, Start date: 02/12/16 16:00:00 CDT, Duration: 30 day, Stop date: 03/12/16 16:00:00 CDTNotes: (Same as: Diflucan) Dilaudid 1.5 mg, 0.75 No Longer The mL, Route: Active 2015 [place] IVP, Drug form: INJ, Q4H, Dosing Weight 96.023, kg, PRN Pain Score 7-10, Start date: 02/12/16 14:19:00 CDT, Stop date: 03/13/16 14:18:00 CDTNotes: Same as: Dilaudid gabapentin 600 mg, 2 cap, No Longer The Route: PO, Active 2015 [place] Drug form: CAP, TID, Dosing Weight 97.273, kg, Start date: 02/12/16 13:00:00 CDT, Duration: 30 day, Stop date: 03/13/16 9:00:00 CDTNotes: (Same as: Neurontin) Naloxone 0.4 mg, 1 mL, Inactive The Route: IVP, 2015 [place] Drug form: INJ, Q2MIN, Dosing Weight 96.023, kg, PRN Narcotic Reversal, Start date: 02/12/16 9:59:00 CDT, Duration: 8 doses or times, Stop date: Limited # of timesNotes: Same as Narcan Lorazepam 0.5 mg, 0.25 Inactive The mL, Route: 2015 [place] IVP, Drug form: INJ, Q20Min, Dosing Weight 96.023, kg, PRN Anxiety, Start date: 02/12/16 9:59:00 CDT, Duration: 3 doses or times, Stop date: Limited # of timesNotes: (Same as: Ativan) Ondansetron 4 mg, Route: Inactive The IVP, ONCE, 2015 [place] Dosing Weight 96.023, kg, PRN Nausea & Vomiting, Start date: 02/12/16 9:59:00 CDT Glycopyrrolate 0.2 mg, 1 mL, Inactive The Route: IVP, 2015 [place] Drug form: INJ, Q5Min, Dosing Weight 96.023, kg, PRN Bradycardia, Start date: 02/12/16 9:59:00 CDT, Duration: 3 doses or times, Stop date: Limited # of timesNotes: (Same as: [place]) Flumazenil 0.2 mg, 2 mL, Inactive The Route: IVP, 2015 [place] Drug form: INJ, PRN, Dosing Weight 96.023, kg, PRN Benzodiazepine Reversal, Initial dose, Start date: 02/12/16 9:59:00 CDT, Duration: 30 day, Stop date: 03/13/16 9:58:00 CDTNotes: (Same as: Romazicon) Fentanyl 25 microgram, Inactive The 0.5 mL, Route: 2015 [place] IVP, Drug form: INJ, Q5Min, Dosing Weight 96.023, kg, PRN Pain Score 4-6, Start date: 02/12/16 9:59:00 CDT, Duration: 4 doses or times, Stop date: Limited # of timesNotes: (Same as: Sublimaze) Preservative free. Hydralazine 10 mg, 0.5 mL, Inactive The Route: IVP, 2015 [place] Drug form: INJ, Q20Min, Dosing Weight 96.023, kg, PRN Elevated BP, Start date: 02/12/16 9:59:00 CDT, Duration: 2 doses or times, Stop date: Limited # of timesNotes: (Same as: Apresoline) Push over 5 minutes Hydromorphone 0.5 mg, 0.5 Inactive The mL, Route: 2015 [place] IVP, Drug form: INJ, Q5Min, Dosing Weight 96.023, kg, PRN Pain Score 7-10, Start date: 02/12/16 9:59:00 CDT, Duration: 4 doses or times, Stop date: Limited # of timesNotes: Same as: Dilaudid Labetalol 10 mg, 2 mL, Inactive The Route: IVP, 2015 [place] Drug form: INJ, Q5Min, Dosing Weight 96.023, kg, PRN Elevated BP, Start date: 02/12/16 9:59:00 CDT, Duration: 5 doses or times, Stop date: Limited # of times fentaNYL (ANES) Route: IV, Inactive The Drug form: 2015 [place] INJ, ONCE, Stop date: 02/12/16 8:40:00 CDT propofol (ANES) Route: IV, Inactive The Drug form: 2015 [place] INJ, ONCE, Stop date: 02/12/16 8:40:00 CDT lidocaine (ANES) Route: IV, Inactive The Drug form: 2015 [place] INJ, ONCE, Stop date: 02/12/16 8:40:00 CDT LR 1000 mL INJ Route: IV, Inactive The (ANES) Total Volume: 2015 [place] 1,000, Start date: 02/12/16 7:55:00 CDT, Stop date: 02/12/16 8:55:00 CDT Ceftriaxone 2 gm, Route: No Longer The IVPB, [id number], Active 2015 [place] Dosing Weight 96.023, kg, Start date: 02/11/16 13:00:00 CDT, Duration: 5 day, Stop date: 02/15/16 13:00:00 CDTNotes: (Same As: Rocephin). Use with 100 mL NS and infuse over 30 min MEDICATION WASTE Product Size: 2000 mg Product Wasted: ___ mg Dilaudid 1 mg, 1 mL, No Longer The Route: IVP, Active 2015 [place] Drug form: INJ, Q6H, Dosing Weight 96.023, kg, PRN Pain Score 7-10, Start date: 02/11/16 8:37:00 CDT, Duration: 30 day, Stop date: 03/12/16 8:36:00 CDTNotes: Same as: Dilaudid vancomycin 750 mg, 150 No Longer The mL, Route: Active 2015 [place] IVPB, Drug form: INJ, Q24H, Start date: 02/11/16 6:00:00 CDT, Duration: 30 day, Stop date: 03/11/16 6:00:00 CDTNotes: TIME CRITICAL MEDICATION Same as: Vancocin Infusion rate 2000 mg: infuse over 2.5 hours metoprolol 50 mg, 1 tab, No Longer The Route: PO, Active 2015 [place] Drug form: ERTAB, Daily, Start date: 02/10/16 9:00:00 CDT, Duration: 30 day, Stop date: 03/10/16 9:00:00 CDTNotes: (Same as: Toprol XL) May split tab, but do not crush. Alprazolam 1 MG 1 mg, 1 tab, No Longer The Oral Tablet Route: PO, Active 2015 [place] [Xanax] Drug form: TAB, Q12H, Dosing Weight 96.023, kg, PRN Anxiety, Start date: 02/10/16 8:19:00 CDT, Duration: 30 day, Stop date: 03/11/16 8:18:00 CDTNotes: With food or milk (Same as: Xanax) vancomycin 750 mg, 150 Inactive The mL, Route: 2015 [place] IVPB, Drug form: INJ, ONCE, Start date: 02/10/16 5:00:00 CDT, Stop date: 02/10/16 5:00:00 CDTNotes: TIME CRITICAL MEDICATION Same as: Vancocin Infusion rate 2001 mg: infuse over 2.5 hours Anoro 62.5mcg/25 Anoro No Longer The mcg 62.5mcg/25 Active 2015 [place] mcg, 1 puff, Route: INHALATION, RBID, 02/09/16 20:00:00 CDT, Duration: 30 day, Stop date: 03/10/16 8:00:00 CDT ketOROLAC 30 mg/mL 60 mg, Route: Inactive The injectable IVP, Drug 2015 [place] solution form: INJ, ONCE, Dosing Weight 96.023, kg, Start date: 02/09/16 17:40:00 CDT, Duration: 1 doses or times, Stop date: 02/09/16 17:40:00 CDT Vancomycin Dosing Vancomycin No Longer The per RPh Dosing per Active 2015 [facility], [facility] Drug form: MISC, Route: MISC, PRN, PRN Other -See Comment, 02/09/16 14:51:00 CDT, Duration: 30 day, Stop date: 03/10/16 14:50:00 CDT Dilaudid 1 mg, 1 mL, No Longer The Route: IVP, Active 2015 [place] Drug form: INJ, Q4H, Dosing Weight 96.023, kg, PRN Pain Score 7-10, Start date: 02/09/16 13:01:00 CDT, Duration: 30 day, Stop date: 03/10/16 13:00:00 CDTNotes: Same as: Dilaudid Sodium Chloride 500 mL, 500 Inactive The 0.154 MEQ/ML ml/hr, Infuse 2015 [place] Injectable Over: 1 hr, Solution Route: IV, 500, Drug form: INJ, ONCE, Priority: STAT, Dosing Weight 96.023 kg, Start date: 02/09/16 12:59:00 CDT, Duration: 1 doses or times, Stop date: 02/09/16 12:59:00 CDT pantoprazole 40 mg, 1 tab, No Longer The Route: PO, Active 2015 [place] Drug form: ECTAB, Before Breakfast, Dosing Weight 96.023, kg, Start date: 02/09/16 9:00:00 CDT, Stop date: 03/09/16 7:30:00 CDTNotes: Tablet should not be chewed or crushed. (Same as: Protonix) chlorhexidine 1 appl, Route: No Longer The gluconate 40 MG/ML BATHE, Active 2015 [place] Medicated Liquid Q-M-W-F, Drug Soap form: SOAP, Start date: 02/09/16 9:00:00 CDT, Duration: 30 day, Stop date: 03/08/16 9:00:00 CDTNotes: (Same As: [place]) Simvastatin 20 mg, 1 tab, No Longer The Route: PO, Active 2015 [place] Drug form: TAB, Bedtime, Dosing Weight 96.023, kg, Start date: 02/08/16 21:00:00 CDT, Duration: 30 day, Stop date: 03/08/16 21:00:00 CDTNotes: (Same as: Zocor) Cefuroxime 1.5 gm, Route: No Longer The IVPB, [id number], Active 2015 [place] Dosing Weight 96.023, kg, Start date: 02/08/16 21:00:00 CDT, Duration: 3 doses or times, Stop date: 02/09/16 13:00:00 CDT Neutra-Phos 2 pkt, Route: No Longer The PO, Drug Form: Active 2015 [place] PDR/REC, Dosing Weight 96.023, kg, PRN, PRN [...] phosphate + sodium mL, Route: Active 2015 [place] chloride 0.9% 500 IVPB, Drug ml INJ [...] phosphate + sodium mL, Route: Active 2015 [place] chloride 0.9% INJ IVPB, PRN, 250 mL Dosing Weight 96.023, kg, PRN Abnormal Lab Result, Start date: 02/08/16 20:04:00 CDT, Duration: 30 day, Stop date: 03/09/16 20:03:00 CDT, FOR ICU USE ONLYNotes: (Same as: K Phosphate.) 1 mMol phoshate has 1.47 mEq potassium Infuse over 4 hours Magnesium Oxide 800 mg, 2 tab, No Longer The Route: PO, Active 2015 [place] Drug form: TAB, PRN, Dosing Weight 96.023, kg, PRN Abnormal Lab Result, FOR ICU USE ONLY, Start date: 02/08/16 20:04:00 CDT, Duration: 30 day, Stop date: 03/09/16 20:03:00 CDTNotes: (Same as: Mag-Ox 400) Magnesium oxide [id number] elemental magnesium Dose=____mg magnesium oxide (___mg elemental magnesium) Magnesium Sulfate 2 gm, 50 mL, No Longer The Route: IVPB, Active 2015 [place] Drug form: INJ, PRN, Dosing Weight 96.023, kg, PRN Abnormal Lab Result, Start date: 02/08/16 20:04:00 CDT, Duration: 30 day, Stop date: 03/09/16 20:03:00 CDT, FOR ICU USE ONLYNotes: WASTE: F/P - Sink; E - Municipal Trash Bin potassium chloride 20 mEq, 15 mL, No Longer The Route: [place], Active 2015 [place] Drug form: LIQ, PRN, Dosing Weight 96.023, kg, PRN Abnormal Lab Result, Start date: 02/08/16 20:04:00 CDT, Duration: 30 day, Stop date: 03/09/16 20:03:00 CDT, FOR ICU USE ONLYNotes: (Same as: Potassium Chloride) sodium phosphate + 15 mmol, 5 mL, No Longer The sodium chloride Route: IVPB, Active 2015 [place] 0.9% INJ 250 mL PRN, Dosing Weight 96.023, kg, PRN Abnormal Lab Result, Start date: 02/08/16 20:04:00 CDT, Duration: 30 day, Stop date: 03/09/16 20:03:00 CDT, FOR ICU USE ONLY sodium phosphate + 45 mmol, 15 No Longer The sodium chloride mL, Route: Active 2015 [place] 0.9% 500 ml INJ IVPB, Drug 500 mL form: INJ, PRN, Dosing Weight 96.023, kg, PRN Abnormal Lab Result, Start date: 02/08/16 20:04:00 CDT, Duration: 30 day, Stop date: 03/09/16 20:03:00 CDT, FOR ICU USE ONLY Calcium Carbonate 500 mg, 1 tab, No Longer The 500 MG Chewable Route: PO, Active 2015 [place] Tablet Drug form: CHEWTAB, PRN, Dosing Weight 96.023, kg, PRN Abnormal Lab Result, FOR ICU USE ONLY, Start date: 02/08/16 20:04:00 CDT, Duration: 30 day, Stop date: 03/09/16 20:03:00 CDTNotes: (Same As: [place]) Calcium Carbonate 500 ng=773 mg elemental calcium Dose= mg calcium carbonate ( mg elemental calcium) Calcium Gluconate 1 gm, 10 mL, No Longer The Route: IVPB, Active 2015 [place] PRN, Dosing Weight 96.023, kg, PRN Abnormal Lab Result, Start date: 02/08/16 20:04:00 CDT, Duration: 30 day, Stop date: 03/09/16 20:03:00 CDT, FOR ICU USE ONLYNotes: WASTE: F/P - Sink; E - Municipal Trash Bin Albuterol 0.83 2.49 mg, 3 mL, No Longer The MG/ML Inhalant Route: NEB, Active 2015 [place] Solution Drug form: SOLN, PRN, Dosing Weight 96.023, kg, PRN Respiratory Protocol, Start date: 02/08/16 20:04:00 CDT, Duration: 30 day, Stop date: 03/09/16 20:03:00 CDTNotes: SEE RT DOCUMENTATION (Same as: Proventil) Dextrose 50% 25 gm, 50 mL, No Longer The Syringe Route: IVP, Active 2015 [place] Drug Form: INJ, Dosing Weight 96.023, kg, PRN, PRN Blood Glucose Results, Start date: 02/08/16 20:04:00 CDT, Duration: 30 day, Stop date: 03/09/16 20:03:00 CDT Docusate 100 mg, 1 cap, No Longer The Route: PO, Active 2015 [place] Drug form: CAP, BID, Dosing Weight 96.023, kg, PRN Constipation, Start date: 02/08/16 20:04:00 CDT, Duration: 30 day, Stop date: 03/09/16 20:03:00 CDTNotes: (Same as: Colace) (Do Not Crush) Glucagon 1 mg, Route: No Longer The IM, Drug form: Active 2015 [place] PDR/INJ, PRN, Dosing Weight 96.023, kg, PRN Blood Glucose Results, Start date: 02/08/16 20:04:00 CDT, Duration: 30 day, Stop date: 03/09/16 20:03:00 CDT Acetaminophen 325 2 tab, Route: No Longer The MG / Hydrocodone PO, Drug Form: Active 2015 [place] Bitartrate 5 MG TAB, Dosing Oral Tablet Weight 96.023, kg, Q4H, PRN Pain Score 4-6, Start date: 02/08/16 20:04:00 CDT, Duration: 30 day, Stop date: 03/09/16 20:03:00 CDTNotes: (Same as: [place] 325/5) Do not exceed 4gm/day of acetaminophen. Acetaminophen 650 mg, 2 tab, No Longer The Route: PO, Active 2015 [place] Drug form: TAB, Q4H, Dosing Weight 96.023, kg, PRN Pain 1-3/Temp > 100.4 F, Start date: 02/08/16 20:04:00 CDT, Duration: 30 day, Stop date: 03/09/16 20:03:00 CDTNotes: Do not exceed 4 gm/day. (Same as: Tylenol) D5W 1/2NS + KCL 1,000 mL, No Longer The 20mEq/L 1000ml Rate: 50 Active 2015 [place] (Premix) 1,000 mL ml/hr, Infuse over: 20 hr, Route: IV, Dosing Weight 96.023 kg, Total Volume: 1,000, Start date: 02/08/16 20:04:00 CDT, Duration: 30 day, Stop date: 03/09/16 20:03:00 CDTNotes: PREMIX IV - Do Not Alter WASTE: F/P - Sink; E - Municipal Trash Bin Ondansetron 4 mg, 2 mL, Inactive The Route: IVP, 2015 [place] Drug form: INJ, ONCE, Dosing Weight 96.023, kg, PRN Nausea & Vomiting, Start date: 02/08/16 9:59:00 CDTNotes: (Same as: Zofran) MEDICATION WASTE Product Size: 4 mg Product Wasted: ___ mg Promethazine 6.25 mg, 25 Inactive The mL, Route: 2015 [place] IVPB, Drug form: SOLN, ONCE, Dosing Weight 96.023, kg, PRN Nausea & Vomiting, Start date: 02/08/16 9:59:00 CDT Flumazenil 0.2 mg, 2 mL, Inactive The Route: IV2015 [place] Drug form: INJ, PRN, Dosing Weight 96.023, kg, PRN Benzodiazepine Reversal, Initial dose, Start date: 02/08/16 9:59:00 CDT, Duration: 30 day, Stop date: 03/09/16 9:58:00 CDTNotes: (Same as: Romazicon) Naloxone 0.4 mg, 1 mL, Inactive The Route: IVP, 2015 [place] Drug form: INJ, Q2MIN, Dosing Weight 96.023, kg, PRN Narcotic Reversal, Start date: 02/08/16 9:59:00 CDT, Duration: 8 doses or times, Stop date: Limited # of timesNotes: Same as Narcan Fentanyl 50 microgram, Inactive The 1 mL, Route: 2015 [place] IVP, Drug form: INJ, Q5Min, Dosing Weight 96.023, kg, PRN Pain Score 7-10, Start date: 02/08/16 9:59:00 CDT, Duration: 2 doses or times, Stop date: Limited # of timesNotes: (Same as: Sublimaze) Preservative free. Hydromorphone 1 mg, 1 mL, Inactive The Route: IVP, 2015 [place] Drug form: INJ, Q5Min, Dosing Weight 96.023, kg, PRN Pain Score 7-10, Start date: 02/08/16 9:59:00 CDT, Duration: 4 doses or times, Stop date: Limited # of timesNotes: Same as: Dilaudid Labetalol 10 mg, 2 mL, Inactive The Route: IVP, 2015 [place] Drug form: INJ, Q5Min, Dosing Weight 96.023, kg, PRN Elevated BP, Start date: 02/08/16 9:59:00 CDT, Duration: 5 doses or times, Stop date: Limited # of times ondansetron (ANES) Route: IV, Inactive The Drug form: 2015 [place] INJ, ONCE, Stop date: 02/08/16 9:40:00 CDT hydromorphone Route: IV, Inactive The (ANES) Drug form: 2015 [place] INJ, ONCE, Stop date: 02/08/16 9:15:00 CDT LR 1000 mL INJ Route: IV, Inactive The (ANES) Total Volume: 2015 [place] 1,000, Start date: 02/08/16 9:08:00 CDT, Stop date: 02/08/16 10:08:00 CDT heparin (ANES) Route: IV, Inactive The Drug form: 2015 [place] INJ, ONCE, Stop date: 02/08/16 8:55:00 CDT fentaNYL (ANES) Route: IV, Inactive The Drug form: 2015 [place] INJ, ONCE, Stop date: 02/08/16 8:40:00 CDT propofol (ANES) Route: IV, Inactive The Drug form: 2015 [place] INJ, ONCE, Stop date: 02/08/16 8:40:00 CDT lidocaine (ANES) Route: IV, Inactive The Drug form: [place] INJ, ONCE, Stop date: 02/08/16 8:40:00 CDT midazolam (ANES) Route: IV, Inactive The Drug form: [place] SOLN, ONCE, Stop date: 02/08/16 8:40:00 CDT rocuronium (ANES) Route: IV, Inactive The Drug form: 2015 [place] INJ, ONCE, Stop date: 02/08/16 8:40:00 CDT piperacillin-tazob IV, ONCE Inactive The actam (ANES) [place] famotidine (ANES) Route: IV, Inactive The Drug form: 2015 [place] INJ, ONCE, Stop date: 02/08/16 8:25:00 CDT [...] No Longer The Route: PO, Active 2015 [place] Drug form: TAB, Q4H, PRN Pain 1-3/Temp > 100.4 F, Start date: 02/07/16 10:35:00 CDT, Duration: 30 day, Stop date: 03/08/16 10:34:00 CDTNotes: (Same as: Roxicodone) oxyCODONE 10 mg 15 mg, Route: Inactive The extended release PO, Drug form: 2015 [place] ERTAB, Q6H, Start date: 02/05/16 18:00:00 CDT, Duration: 30 day, Stop date: 03/06/16 12:00:00 CDT Roxicodone 15 mg, 3 tab, No Longer The Route: PO, Active 2015 [place] Drug form: TAB, Q6Hnow, Start date: 02/05/16 15:21:00 CDT, Stop date: 03/06/16 11:00:00 CDTNotes: (Same as: Roxicodone) Dilaudid 2 mg, 1 mL, No Longer The Route: IV, Active 2015 [place] Drug form: INJ, Q2H, Dosing Weight 97.273, kg, PRN Pain Score 7-10, Start date: 02/05/16 15:04:00 CDT, Duration: 30 day, Stop date: 03/06/16 15:03:00 CDTNotes: Same as: Dilaudid sodium chloride 1,000 mL, No Longer The 0.9% 1000 ml INJ Rate: 50 Active 2015 [place] 1,000 mL ml/hr, Infuse over: 20 hr, Route: IV, Dosing Weight 97.273 kg, Total Volume: 1,000, Start date: 02/04/16 11:14:00 CDT, Stop date: 03/05/16 11:13:00 CDT vancomycin 750 mg, 150 No Longer The mL, Route: Active 2015 [place] IVPB, Drug form: INJ, [id number], Start date: 02/02/16 15:00:00 CDT, Duration: 30 day, Stop date: 03/03/16 3:00:00 CDTNotes: TIME CRITICAL MEDICATION Same as: Vancocin Infusion rate 2000 mg: infuse over 2.5 hours atorvastatin 40 mg, 1 tab, No Longer The Route: PO, Active 50 [place] [address] Drug form: TAB, Bedtime, Dosing Weight 97.273, kg, Start date: 02/01/16 21:00:00 CDT, Duration: 30 day, Stop date: 03/01/16 21:00:00 CDTNotes: (Same as: Lipitor) Vancomycin 1 ea, Route: Inactive The MISC, Dosing 2015 [place] Weight 97.273, kg, ONCALL, Start date: 02/01/16 15:00:00 CDT, Duration: 1 doses or times, Pharmacy to dose Acetaminophen 325 1 tab, Route: No Longer The MG / Hydrocodone PO, Drug Form: Active 2015 [place] Bitartrate 10 MG TAB, Dosing Oral Tablet [[place] Weight 97.273, 10/325] kg, Q6H, PRN Pain Score 4-6, Start date: 02/01/16 13:10:00 CDT, Duration: 30 day, Stop date: 03/02/16 13:09:00 CDTNotes: Do not exceed 4gm/day of acetaminophen. (Same as: [place] 325/10) Tylenol 650 mg, 2 tab, No Longer The Route: PO, Active 2015 [place] Drug form: TAB, Q6H, Dosing Weight 97.273, kg, PRN Pain Score 1-3, Start date: 02/01/16 13:02:00 CDT, Duration: 30 day, Stop date: 03/02/16 13:01:00 CDTNotes: Do not exceed 4 gm/day. (Same as: Tylenol) Vancomycin 1,000 mg, No Longer The Route: IVPB, Active 2015 [place] [id number], Dosing Weight 97.273, kg, Start date: 02/01/16 13:00:00 CDT, Stop date: 03/02/16 1:00:00 CDTNotes: TIME CRITICAL MEDICATION (Same As: Vancocin) Infusion rate 2001 mg: infuse over 2.5 hours MEDICATION WASTE Product Size: 1000 mg Product Wasted: ___ mg Zosyn 3.375 gm, No Longer The Route: IVPB, Active 2015 [place] [id number], Dosing Weight 97.273, kg, CrCl Notes: (Same as: Zosyn) Dosing based on Piperacillin component MEDICATION WASTE Product Size: 3375 mg Product Wasted: ___ mg Lisinopril 5 mg, 1 tab, No Longer The Route: PO, Active 2015 [place] Drug form: TAB, Daily, Dosing Weight 97.273, [...] Tartrate 100 MG Route: PO, Active 2015 [place] Extended Release Drug form: Tablet [Toprol] ERTAB, Daily, Start date: 02/01/16 9:00:00 CDT, Duration: 30 day, Stop date: 03/01/16 9:00:00 CDTNotes: (Same as: Toprol XL) May split tab, but do not crush. Alprazolam 2 MG 2 mg, 2 tab, No Longer The Oral Tablet Route: PO, Active 2015 [place] Drug form: TAB, BID, Dosing Weight 97.273, kg, PRN Anxiety, Start date: 02/01/16 8:23:00 CDT, Duration: 30 day, Stop date: 03/02/16 8:22:00 CDTNotes: With food or milk (Same as: Xanax) Albuterol 0.833 3 ml, Route: No Longer The MG/ML / NEB, Drug Active 2015 [place] Ipratropium Form: SOLN, [place] 0.167 Dosing Weight MG/ML Inhalant 97.273, kg, Solution PRN, PRN Respiratory Protocol, Start date: 02/01/16 8:22:00 CDT, Duration: 30 day, Stop date: 03/02/16 8:21:00 CDTNotes: (Same as: Duoneb) Zofran 4 mg, 2 mL, No Longer The Route: IVP, Active 2015 [place] Drug form: INJ, Q6H, Dosing Weight 97.273, kg, PRN Nausea, Start date: 02/01/16 1:24:00 CDT, Duration: 30 day, Stop date: 03/02/16 1:23:00 CDTNotes: (Same as: Zofran) MEDICATION WASTE Product Size: 4 mg Product Wasted: ___ mg Dilaudid 2 mg, 2 mL, No Longer The Route: IVP, Active 2015 [place] Drug form: INJ, Q4H, Dosing Weight 97.273, kg, PRN Pain Score 7-10, Start date: 02/01/16 1:23:00 CDT, Duration: 30 day, Stop date: 03/02/16 1:22:00 CDTNotes: Same as: Dilaudid Acetaminophen 300 1 tab, PO, No Longer The MG / Codeine BID, PRN pain, Active 2015 [place] Phosphate 30 MG # 28 tab, 0 Oral Tablet Refill(s) lisinopril 10 mg 10 mg=1 tab, Active The oral tablet PO, Daily, # 2015 [place] 30 tab, 0 Refill(s) metoprolol 100 mg=1 tab, Active The tartrate 100 mg PO, BID, # 60 2015 [place] oral tablet tab, 0 Refill(s) Centrum Adults 1 tab, PO, Active The oral tablet Daily, 0 2015 [place] Refill(s) doxazosin 1 mg 1 mg=1 tab, Active The oral tablet PO, Daily, # 2015 [place] 30 tab, 0 Refill(s) atorvastatin 40 mg 40 mg=1 tab, Active The oral tablet PO, Bedtime, # 2015 [place] 30 tab, 0 Refill(s) Anoro Ellipta 62.5 1 puff, Active The mcg-25 mcg INHALER, 2015 [place] inhalation powder Daily, # 1 ea, 3 Refill(s) Alprazolam 2 MG 2 mg=1 tab, Active The Oral Tablet PO, BID, PRN 2015 [place] Anxiety, # 20 tab, 0 Refill(s) Furosemide 20 MG 20 mg=1 tab, Active The Oral Tablet PO, Daily, # 2015 [place] 30 tab, 0 Refill(s) cilostazol 100 mg 100 mg=1 tab, Active The oral tablet PO, BID, # 60 2015 [place] tab, 0 Refill(s) Acetaminophen 650 mg, Route: Inactive The PO, Drug form: 2015 [place] TAB, ONCE, Dosing Weight 95, kg, Priority: STAT, Start date: 01/31/16 22:28:00 CDT, Stop date: 01/31/16 22:28:00 CDT Piperacillin / 3.375 gm, Inactive The tazobactam Route: IVPB, 2015 [place] ONCE, Dosing Weight 95, kg, Priority: STAT, Start date: 01/31/16 17:57:00 CDT, Stop date: 01/31/16 17:57:00 CDTNotes: (Same as: Zosyn) Dosing based on Piperacillin component MEDICATION WASTE Product Size: 3375 mg Product Wasted: ___ mg Vancomycin 1,000 mg, Inactive The Route: IVPB, 2015 [place] ONCE, Dosing Weight 95, kg, Priority: STAT, Start date: 01/31/16 17:57:00 CDT, Stop date: 01/31/16 17:57:00 CDT, TIME CRITICAL MEDICATIONNote s: TIME CRITICAL MEDICATION (Same As: Vancocin) Infusion rate 2001 mg: infuse over 2.5 hours MEDICATION WASTE Product Size: 1000 mg Product Wasted: ___ mg Sodium Chloride 1,000 mL, Inactive The 0.154 MEQ/ML 2,000 ml/hr, 2015 [place] Injectable Infuse Over: Solution 30 minutes, Route: IV, 1,000, Drug form: INJ, ONCE, Priority: STAT, Dosing Weight 95 kg, Start date: 01/31/16 17:04:00 CDT, Duration: 1 doses or times, Stop date: 01/31/16 17:04:00 CDT Acetaminophen 325 1 tab, Route: Inactive The MG / Hydrocodone PO, Drug Form: 2015 [place] Bitartrate 10 MG TAB, Dosing Oral Tablet [[place] Weight 95, kg, 10/325] ONCE, STAT, Start date: 01/31/16 16:57:00 CDT, Stop date: 01/31/16 16:57:00 CDTNotes: Do not exceed 4gm/day of acetaminophen. (Same as: [place] 325/10) Amlodipine 10 mg, PO, Active The Daily, 0 2015 [place] Refill(s) gabapentin 300 mg, PO, Active The BID, 0 2015 [place] Refill(s) atorvastatin 20 mg, 1 tab, Inactive The Route: PO, 2014 [place] Drug form: TAB, Bedtime, Dosing Weight 98.267, [...] 1 tab, Inactive The Route: PO, 2014 [place] Drug form: TAB, Daily, Start date: 02/16/15 9:00:00, Duration: 30 day, Stop date: 03/17/15 9:00:00Notes: (Same as: Prinivil, Zestril) metoprolol 25 mg, 1 tab, Inactive The tartrate Route: PO, 2014 [place] Drug form: TAB, Q12H, Dosing Weight 98.267, kg, Start date: 02/16/15 9:00:00, Duration: 30 day, Stop date: 03/17/15 21:00:00Notes: (Same as: Lopressor) Microzide 12.5 mg, 1 Inactive The tab, Route: 2014 [place] PO, Drug form: TAB, Daily, Start date: 02/16/15 9:00:00, Duration: 30 day, Stop date: 03/17/15 9:00:00Notes: (Same as: Hydrodiuril). Give with food. pneumococcal 0.5 mL, Route: Inactive The capsular IM, Drug Form: 2014 [place] polysaccharide INJ, Daily, type 1 vaccine / [...] The Oral Tablet tab, Route: Active 2014 [place] [Xanax] PO, Drug form: TAB, BID, Dosing Weight 98.267, kg, PRN Anxiety, Start date: 02/15/15 23:39:00, Duration: 30 day, Stop date: 03/17/15 23:38:00Notes: With food or milk (Same as: Xanax) Acetaminophen 325 1 tab, Route: No Longer The MG / Hydrocodone PO, Drug Form: Active 2014 [place] Bitartrate 5 MG TAB, Dosing Oral Tablet [[place] Weight 98.267, 5/325] kg, Q12H, PRN Pain 1-3/Temp > 100.4 F, Start date: 02/15/15 23:39:00, Duration: 30 day, Stop date: 03/17/15 23:38:00Notes: (Same as: [place] 325/5) Do not exceed 4gm/day of acetaminophen. Tessalon Perles 200 mg, 2 cap, No Longer The Route: PO, Active 2014 [place] Drug form: CAP, TID, Dosing Weight 13.636, kg, Start date: 02/15/15 20:00:00, Duration: 30 day, Stop date: 03/17/15 17:00:00Notes: (Same As: Tessalon Perles) "Do Not Crush" Acetaminophen 325 1 tab, PO, Active The MG / Hydrocodone Q12H, PRN 2014 [place] Bitartrate 5 MG Pain, # 30 Oral Tablet [[place] tab, 0 5/325] Refill(s) Alprazolam 0.25 MG 0.25 mg=1 tab, Active The Oral Tablet PO, BID, PRN 2014 [place] [Xanax] Anxiety, Stress, # 20 tab, 0 Refill(s) metoprolol 25 mg, PO, Active The tartrate BID, 0 2014 [place] Refill(s) NS 1,000 mL 1,000 mL, No Longer The Rate: 75 Active 2014 [place] ml/hr, Infuse over: 13.3 hr, Route: IV, Dosing Weight 13.636 kg, Total Volume: 1,000, Start date: 02/15/15 18:04:00, Duration: 30 day, Stop date: 03/17/15 18:03:00 Xopenex 0.63 mg, 3 mL, No Longer The Route: NEB, Active 2014 [place] Drug form: SOLN, PRN, Dosing Weight 13.636, kg, PRN Respiratory Protocol, Start date: 02/15/15 18:03:00, Duration: 30 day, Stop date: 03/17/15 18:02:00Notes: SEE RT DOCUMENTATION (Same as:Xopenex) Non-Formulary Acetaminophen 325 2 tab, Route: No Longer The MG / Hydrocodone PO, Drug Form: Active 2014 [place] Bitartrate 10 MG TAB, Dosing Oral Tablet [[place] Weight 13.636, 10/325] kg, Q4H, PRN Pain Score 4-6, Start date: 02/15/15 18:03:00, Duration: 30 day, Stop date: 03/17/15 18:02:00Notes: Do not exceed 4gm/day of acetaminophen. (Same as: [place] 325/10) Albuterol 0.833 3 ml, Route: No Longer The MG/ML / NEB, Drug Active 2014 [place] Ipratropium Form: SOLN, [place] 0.167 Dosing Weight MG/ML Inhalant 13.636, kg, Solution [DuoNeb] PRN, PRN Respiratory Protocol, Start date: 02/15/15 15:51:00, Duration: 30 day, Stop date: 03/17/15 15:50:00Notes: (Same as: Duoneb) Aspirin 324 mg, 4 tab, Inactive The Route: CHEW, 2014 [place] Drug form: CHEWTAB, ONCE, Dosing Weight 13.636, kg, Priority: STAT, Start date: 02/15/15 15:00:00, Stop date: 02/15/15 15:00:00Notes: Take with food. tramadol 100 mg=2 tab, Active The hydrochloride 50 PO, Q6H, PRN 2014 [place] MG Oral Tablet pain, X 3 day, [Ultram] # 20 tab, 0 Refill(s) Tylenol 650 mg, 2 tab, Inactive The Route: PO, 2014 [place] Drug form: TAB, ONCE, Dosing Weight 108.182, kg, Pediatric Dosing, Priority: STAT, Start date: 02/09/15 15:47:00, Stop date: 02/09/15 15:47:00Notes: Do not exceed 4 gm/day. (Same as: Tylenol) Sodium Chloride 1,000 mL, Inactive The 0.154 MEQ/ML 1,000 ml/hr, 2014 [place] Injectable Infuse Over: 1 Solution hr, Route: IV, 1,000, Drug form: INJ, ONCE, Priority: STAT, Dosing Weight 104.545 kg, Start date: 01/23/15 14:39:00, Duration: 1 doses or times, Stop date: 01/23/15 14:39:00 Saline Flush 0.9% 10 mL, Route: Inactive The IVP, Drug 2014 [place] Form: INJ, Dosing Weight 104.545, kg, PRN, PRN Line Flush, Start date: 01/23/15 14:39:00, Duration: 30 day, Stop date: 02/22/15 14:38:00Notes: preservative free. Allergies, Adverse Reactions, Alerts Substance Category Reaction Severity Reaction Status Date Comments Source type Reported morphine Assertion Drug Active The allergy [place] Immunizations Immunization Date Site Status Last Updated Comments Source Given pneumococcal Right completed Ashok The 23-valent 5 deltoid [place] vaccine Results Order Name Results Value Reference Date Interpretation Comments Source Range BLOOD BANK RBC product Product available 04/04 The RESULTS /2015 [place] (04/04/16 11:22 AM) BLOOD BANK ABO/Rh B POS 04/04 The RESULTS [place] BLOOD BANK Antibody Negative 04/04 The RESULTS [facility] [place] (04/04/16 11:20 AM) URINE AND UA <=1.0 0.1 - 1.0 03/14 The STOOL Urobilinogen mg/dL /2016 [place] URINE AND UA RBC 1 /HPF 0 [...] mMol/L 0.5 - 2.2 03/14 The Lvl [place] CHEM PANEL Procalcitoni <0.05 0.00 - 03/14 The n Lvl ng/mL 0. [place] BLOOD BANK Antibody Negative 03/14 The RESULTS [place] (03/13/16 9:07 PM) BLOOD BANK ABO/Rh B POS 03/14 The RESULTS [place] CHEM PANEL eGFR 43 03/14 Result Comment: [...] is not recommended in the following populations: [place] [address] Individuals with unstable creatinine concentrations, including patients [...] 21 mg/dL 7 - 22 03/14 MH [place] CHEM PANEL Creatinine 1.79 mg/dL 0.50 - 03/14 MH The Lvl 1.40 [place] CHEM PANEL Alk Phos 95 unit/L 39 - 136 03/14 MH [place] CHEM PANEL Bili Total 0.3 mg/dL 0.2 - 1.3 03/14 MH [place] CHEM PANEL AST 39 unit/L 0 - 37 03/14 MH The [place] CHEM PANEL ALT 59 unit/L 0 - 65 03/14 MH The [place] CHEM PANEL Sodium Lvl 139 meq/L 135 - 145 03/14 MH The [place] CHEM PANEL Total 7.8 g/dL 6.4 - 8.4 03/14 MH The Protein [place] CHEM PANEL Albumin Lvl 2.5 g/dL 3.5 - 5.0 03/14 MH The [place] CHEM PANEL Glucose Lvl 120 mg/dL 70 - 99 03/14 MH The [place] CHEM PANEL Chloride Lvl 106 meq/L 95 - 109 03/14 MH The [place] CHEM PANEL CO2 21 meq/L 24 - 32 03/14 MH [place] CHEM PANEL Calcium Lvl 10.1 mg/dL 8.5 - 10.5 03/14 MH The [place] CHEM PANEL Potassium 3.3 meq/L 3.5 - 5.1 03/14 MH The Lvl [place] CHEM PANEL A/G Ratio 0.5 0.7 - 1.6 03/14 MH The [place] CHEM PANEL Globulin 5.3 g/dL 2.7 - 4.2 03/14 The [place] CHEM PANEL B/C Ratio 12 6 - 25 03/14 The [place] CHEM PANEL AGAP 15.3 meq/L 10.0 - 03/14 MH The 20.0 [place] HEMATOLOGY MPV 7.4 fL 7.4 - 10.4 03/14 MH The [place] HEMATOLOGY WBC 7.3 K/CMM 3.7 - 10.4 03/14 The [place] HEMATOLOGY MCV 88.5 fL 80.0 - 03/14 MH The 94.0 [place] HEMATOLOGY RBC 3.00 M/CMM 4.70 - 03/14 MH The 6. [place] HEMATOLOGY Hct 26.5 % 42.0 - 03/14 MH The 54.0 [place] HEMATOLOGY Hgb 8.8 g/dL 14.0 - 03/14 MH The 18.0 [place] HEMATOLOGY MCHC 33.1 g/dL 32.0 - 03/14 MH The 36.0 [place] HEMATOLOGY MCH 29.3 pg 27.0 - 03/14 MH The 31.0 [place] HEMATOLOGY Platelet 241 K/CMM 133 - 450 03/14 MH The [place] HEMATOLOGY RDW 15.5 % 11.5 - 03/14 MH The 14.5 [place] HEMATOLOGY Basophils # 0.1 K/CMM 0.0 - 0.2 03/14 MH The [place] HEMATOLOGY Lymphocytes 14.3 % 20.0 - 03/14 MH The 40.0 [place] HEMATOLOGY Eosinophils 1.9 % 0.0 - 4.0 03/14 MH The [place] HEMATOLOGY Segs 77.1 % 45.0 - 03/14 MH The 75.0 [place] HEMATOLOGY Monocytes 5.3 % 2.0 - 12.0 03/14 MH The [place] HEMATOLOGY Basophils 1.4 % 0.0 - 1.0 03/14 MH The [place] HEMATOLOGY Segs-Bands # 5.6 K/CMM 1.5 - 8.1 03/14 MH The [place] HEMATOLOGY Lymphocytes 1.0 K/CMM 1.0 - 5.5 03/14 MH The # [place] HEMATOLOGY Monocytes # 0.4 K/CMM 0.0 - 0.8 03/14 [place] HEMATOLOGY Eosinophils 0.1 K/CMM 0.0 - 0.5 03/14 The [place] Ext Lower Ext Lower Study: Ext Lower Venous Doppler Bilat US 03/13/2016 11: 06 PM CDT 03/13 - [facility] Venous Venous /2015 [facility] Doppler Doppler Ordering Physician: Blanche Diaz [...] no evidence for deep venous thrombosis. SL: [id number] Chest Chest 1view Study: Chest 1view DX 03/13/2016 11:18 PM CDT 03/13 [facility] 1view DX DX [facility] Ordering Physician: Blanche Diaz MD Clinical [...] no pneumothorax. No acute cardiopulmonary disease. SL: [id number] ANEMIA UIBC 174 ug/dl 110 - 370 02/15 The [place] ANEMIA TIBC 196 ug/dl 228 - 428 02/15 The [place] ANEMIA Iron 22 ug/dl 45 - 160 02/15 The [place] ANEMIA % [place] Fe 11 % 12 - 57 02/15 The [place] Chest Chest 1view Clinical Indication: Fever; 02/14 - The 1view DX DX /2015 - [place] Comparison: 02/15/2015 Read by: Akil Castaneda MD [...] radiographic evidence of acute cardiopulmonary disease. SL: [id number] CHEM PANEL eGFR 57 02/14 Result Comment: [...] is not recommended in the following populations: [place] 3m2 Individuals with unstable creatinine concentrations, including [...] 14.7 meq/L 10.0 - 02/14 The . [place] CHEM PANEL Calcium Lvl 8.7 mg/dL 8.5 - 10.5 02/14 [place] CHEM PANEL CO2 24 meq/L 24 - 32 02/14 [place] CHEM PANEL Chloride Lvl 99 meq/L 95 - 109 02/14 [place] CHEM PANEL Potassium 3.7 meq/L 3.5 - 5.1 02/14 The Lvl /2015 [place] CHEM PANEL BUN 16 mg/dL 7 - 22 02/14 The [place] CHEM PANEL Glucose Lvl 128 mg/dL 70 - 99 02/14 The [place] CHEM PANEL Sodium Lvl 134 meq/L 135 - 145 02/14 The [place] CHEM PANEL Creatinine 1.42 mg/dL 0.50 - 02/14 The Lvl 1.40 [place] CHEM PANEL eGFR 51 02/13 Result Comment: [...] is not recommended in the following populations: [address] Individuals with unstable creatinine concentrations, including [...] mg/dL 0.2 - 1.3 02/13 Result Comment: [place] reviewed all results 02/14/2016 06:35 [facility] CHEM PANEL ALT 25 unit/L 0 - 65 02/13 The [place] CHEM PANEL AST 15 unit/L 0 - 37 02/13 The [place] CHEM PANEL Alk Phos 62 unit/L 39 - 136 02/13 The [place] CHEM PANEL Globulin 4.8 g/dL 2.7 - 4.2 02/13 The [place] CHEM PANEL A/G Ratio 0.5 0.7 - 1.6 02/13 The [place] CHEM PANEL Calcium Lvl 9.0 mg/dL 8.5 - 10.5 02/13 The [place] CHEM PANEL Glucose Lvl 109 mg/dL 70 - 99 02/13 The [place] CHEM PANEL CO2 24 meq/L 24 - 32 02/13 The [place] CHEM PANEL Chloride Lvl 101 meq/L 95 - 109 02/13 The [place] CHEM PANEL BUN 17 mg/dL 7 - 22 02/13 The [place] CHEM PANEL Potassium 4.1 meq/L 3.5 - 5.1 02/13 The Lvl /2015 [place] CHEM PANEL AGAP 14.1 meq/L 10.0 - 02/13 The 20.0 [place] CHEM PANEL Albumin Lvl 2.3 g/dL 3.5 - 5.0 02/13 The [place] CHEM PANEL Total 7.1 g/dL 6.4 - 8.4 02/13 The Protein /2015 [place] CHEM PANEL Creatinine 1.55 mg/dL 0.50 - 02/13 The Lvl 1.40 [place] CHEM PANEL Sodium Lvl 135 meq/L 135 - 145 02/13 The [place] CHEM PANEL B/C Ratio 11 6 - 25 02/13 The [place] HEMATOLOGY MPV 7.7 fL 7.4 - 10.4 02/13 The [place] HEMATOLOGY Hct 25.4 % 42.0 - 02/13 The 54.0 [place] HEMATOLOGY MCH 32.7 pg 27.0 - 02/13 The 31.0 [place] HEMATOLOGY MCV 96.6 fL 80.0 - 02/13 The 94.0 [place] HEMATOLOGY Platelet 296 K/CMM 133 - 450 02/13 The [place] HEMATOLOGY RDW 14.7 % 11.5 - 02/13 The 14.5 [place] HEMATOLOGY MCHC 33.8 g/dL 32.0 - 02/13 The 36.0 [place] HEMATOLOGY WBC 8.4 K/CMM 3.7 - 10.4 02/13 The [place] HEMATOLOGY Hgb 8.6 g/dL 14.0 - 02/13 The 18.0 [place] HEMATOLOGY RBC 2.63 M/CMM 4.70 - 02/13 The 6.10 [place] HEMATOLOGY Lymphocytes 1.5 K/CMM 1.0 - 5.5 02/13 The # /2015 [place] HEMATOLOGY Eosinophils 0.2 K/CMM 0.0 - 0.5 02/13 The # [place] HEMATOLOGY Monocytes # 0.8 K/CMM 0.0 - 0.8 02/13 [place] HEMATOLOGY Basophils # 0.1 K/CMM 0.0 - 0.2 02/13 [place] HEMATOLOGY Monocytes 9.9 % 2.0 - 12.0 02/13 The [place] HEMATOLOGY Lymphocytes 17.2 % 20.0 - 02/13 The 40.0 [place] HEMATOLOGY Segs 69.8 % 45.0 - 02/13 The 75.0 [place] HEMATOLOGY Eosinophils 2.2 % 0.0 - 4.0 02/13 The [place] HEMATOLOGY Segs-Bands # 5.9 K/CMM 1.5 - 8.1 02/13 [place] HEMATOLOGY Basophils 0.9 % 0.0 - 1.0 02/13 [place] TOXICOLOGY Vanco Tr 14.8 ug/ml 02/13 [place] TOXICOLOGY Vanco Tr TND TBD 02/13 [place] Foot Foot series Clinical Indication: Pain and swelling. Post surgery. The series DX DX - [place] Comparison: 01/31/2016. Read by: Samson Ramirez MD [...] post transmetatarsal amputation, as noted above. SL: [id number] CHEM PANEL Total 6.3 g/dL 6.4 - 8.4 02/12 The Protein [place] CHEM PANEL A/G Ratio 0.7 0.7 - 1.6 02/12 The [place] CHEM PANEL B/C Ratio 12 6 - 25 02/12 [place] CHEM PANEL Globulin 3.8 g/dL 2.7 - 4.2 02/12 MH The [place] CHEM PANEL AST 12 unit/L 0 - 37 02/12 MH The [place] CHEM PANEL Alk Phos 61 unit/L 39 - 136 02/12 MH The [place] CHEM PANEL Albumin Lvl 2.5 g/dL 3.5 - 5.0 02/12 MH The [place] CHEM PANEL ALT 26 unit/L 0 - 65 02/12 MH The [place] CHEM PANEL Bili Total 0.4 mg/dL 0.2 - 1.3 02/12 MH The [place] CHEM PANEL AGAP 13.5 meq/L 10.0 - 02/12 MH The 20.0 [place] CHEM PANEL eGFR 57 02/12 Result Comment: [...] is not recommended in the following populations: [address] Individuals with unstable creatinine concentrations, including [...] 27 meq/L 24 - 32 02/12 MH [place] CHEM PANEL Calcium Lvl 8.7 mg/dL 8.5 - 10.5 02/12 MH The [place] CHEM PANEL Chloride Lvl 100 meq/L 95 - 109 02/12 MH The [place] CHEM PANEL Potassium 4.5 meq/L 3.5 - 5.1 02/12 MH The [place] CHEM PANEL Creatinine 1.42 mg/dL 0.50 - 02/12 MH The Lvl 1.40 [place] CHEM PANEL Sodium Lvl 136 meq/L 135 - 145 02/12 MH The [place] CHEM PANEL Glucose Lvl 105 mg/dL 70 - 99 02/12 MH The [place] CHEM PANEL BUN 17 mg/dL 7 - 22 02/12 The [place] TOXICOLOGY Vanco Tr TND TBD 02/12 The [place] TOXICOLOGY Vanco Tr 9.3 ug/ml 02/12 The [place] CHEM PANEL Phosphorus 4.9 mg/dL 2.5 - 4.5 02/11 The [place] CHEM PANEL Magnesium 1.8 mg/dL 1.8 - 2.4 02/11 The Lvl [place] HEMATOLOGY Segs 70.5 % 45.0 - 02/11 MH The 75.0 [place] HEMATOLOGY Lymphocytes 18.0 % 20.0 - 02/11 MH The 40.0 [place] HEMATOLOGY Monocytes 9.7 % 2.0 - 12.0 02/11 The [place] HEMATOLOGY Segs-Bands # 6.4 K/CMM 1.5 - 8.1 02/11 The [place] HEMATOLOGY Lymphocytes 1.6 K/CMM 1.0 - 5.5 02/11 The # [place] HEMATOLOGY Basophils 0.5 % 0.0 - 1.0 02/11 MH The [place] HEMATOLOGY Eosinophils 1.3 % 0.0 - 4.0 02/11 MH The [place] HEMATOLOGY Monocytes # 0.9 K/CMM 0.0 - 0.8 02/11 The [place] HEMATOLOGY Eosinophils 0.1 K/CMM 0.0 - 0.5 02/11 The # [place] HEMATOLOGY Platelet 307 K/CMM 133 - 450 02/11 The [place] HEMATOLOGY MPV 6.9 fL 7.4 - 10.4 02/11 The [place] HEMATOLOGY MCHC 33.9 g/dL 32.0 - 02/11 The 36.0 [place] HEMATOLOGY RDW 15.1 % 11.5 - 02/11 MH The 14.5 [place] HEMATOLOGY RBC 2.69 M/CMM 4.70 - 02/11 MH The 6.10 [place] HEMATOLOGY MCV 96.5 fL 80.0 - 02/11 MH The 94.0 [place] HEMATOLOGY WBC 9.1 K/CMM 3.7 - 10.4 02/11 The [place] HEMATOLOGY Hgb 8.8 g/dL 14.0 - 02/11 MH The 18.0 [place] HEMATOLOGY Hct 26.0 % 42.0 - 02/11 MH The 54.0 [place] HEMATOLOGY MCH 32.7 pg 27.0 - 02/11 MH The 31.0 [place] HEMATOLOGY Segs-Bands # 7.7 K/CMM 1.5 - 8.1 02/11 The [place] HEMATOLOGY Basophils 1.5 % 0.0 - 1.0 02/11 MH The [place] HEMATOLOGY Basophils # 0.2 K/CMM 0.0 - 0.2 02/11 MH The [place] HEMATOLOGY Eosinophils 0.2 K/CMM 0.0 - 0.5 02/11 MH The # /2015 [place] HEMATOLOGY Monocytes # 1.2 K/CMM 0.0 - 0.8 02/11 MH The [place] HEMATOLOGY Segs 69.4 % 45.0 - 02/11 MH The 75.0 [place] HEMATOLOGY Monocytes 10.5 % 2.0 - 12.0 02/11 The [place] HEMATOLOGY Eosinophils 1.6 % 0.0 - 4.0 02/11 MH The [place] HEMATOLOGY Lymphocytes 1.9 K/CMM 1.0 - 5.5 02/11 MH The # /2015 [place] HEMATOLOGY Lymphocytes 17.0 % 20.0 - 02/11 MH The 40.0 [place] HEMATOLOGY Hct 28.9 % 42.0 - 02/11 MH The 54.0 [place] HEMATOLOGY MCHC 33.6 g/dL 32.0 - 02/11 The 36.0 [place] HEMATOLOGY RDW 14.6 % 11.5 - 02/11 The 14.5 [place] HEMATOLOGY MCV 96.6 fL 80.0 - 02/11 MH The 94.0 [place] HEMATOLOGY MCH 32.4 pg 27.0 - 02/11 MH The 31.0 [place] HEMATOLOGY Hgb 9.7 g/dL 14.0 - 02/11 MH The 18.0 [place] HEMATOLOGY WBC 11.1 K/CMM 3.7 - 10.4 02/11 MH The [place] HEMATOLOGY RBC 2.99 M/CMM 4.70 - 02/11 The 6.10 [place] HEMATOLOGY Platelet 360 K/CMM 133 - 450 02/11 The [place] HEMATOLOGY MPV 7.4 fL 7.4 - 10.4 02/11 The [place] TOXICOLOGY Vanco Tr 10.9 ug/ml 02/10 The [place] TOXICOLOGY Vanco Tr TND TBD 02/10 The [place] HEMATOLOGY Basophils # 0.1 K/CMM 0.0 - 0.2 02/09 The [place] TOXICOLOGY Vanco Lvl 14.1 ug/ml 02/09 The [place] HEMATOLOGY Sed Rate null 0 - 15 02/08 The [place] BLOOD BANK Antibody Negative 02/07 The RESULTS Scrn /2015 [place] (02/08/16 5:38 AM) BLOOD BANK ABO/Rh B POS 02/07 The RESULTS [place] CHEM PANEL Procalcitoni 0.11 ng/mL 0.00 - 02/07 The n Lvl 0. [place] URINE AND UA Sq Epi None Seen 02/04 The STOOL [place] URINE AND UA <=1.0 0.1 - 1.0 02/04 The STOOL Urobilinogen mg/dL [place] URINE AND UA Leuk Est Negative Negative 02/04 The STOOL /2015 [place] (02/05/16 12:36 AM) URINE AND UA Bacteria Occasional None Seen 02/04 The STOOL /HPF /HPF [place] URINE AND UA WBC 1 /HPF 0 - 5 02/04 The STOOL [place] URINE AND UA Blood Negative Negative 02/04 The STOOL /2015 [place] (02/05/16 12:36 AM) URINE AND UA Bili Negative Negative 02/04 The STOOL [place] *NA* (02/05/16 12:36 AM) URINE AND UA Nitrite Negative Negative 02/04 The STOOL /2015 [place] (02/05/16 12:36 AM) URINE AND UA Glucose Negative Negative 02/04 The STOOL mg/dL mg/dL [place] URINE AND UA Protein Negative Negative 02/04 The STOOL mg/dL mg/dL [place] URINE AND UA Turbidity Clear Clear 02/04 The STOOL /2015 [place] (02/05/16 12:36 AM) URINE AND UA pH 6.0 5.0 - 8.0 02/04 The STOOL /2015 [place] URINE AND UA Color Light Yellow Yellow 02/04 The STOOL [place] *NA* (02/05/16 12:36 AM) URINE AND UA Ketones Negative Negative 02/04 The STOOL mg/dL mg/dL /2015[place] URINE AND UA Spec Grav 1.006 <=1.030 02/04 The STOOL [place] Abdominal Abdominal Clinical Indication: Gangrene; right foot gangrene. The Aorta with Aorta with /2015 - [place] runoff CTA runoff CTA Comparison: None Read [...] 5th MCP is concerning for osteomyelitis. SL: [id number] URINE AND UA Sq Epi None Seen 01/31 The [facility] [place] URINE AND UA <=1.0 0.1 - 1.0 01/31 The STOOL Urobilinogen mg/dL [place] URINE AND UA Blood Negative Negative 01/31 The [place] (02/01/16 4:31 PM) URINE AND UA Nitrite Negative Negative 01/31 The [place] (02/01/16 4:31 PM) URINE AND UA Leuk Est Negative Negative 01/31 The [facility] [place] (02/01/16 4:31 PM) URINE AND UA WBC 1 /HPF 0 - 5 01/31 The [facility] [place] URINE AND UA Hyal Cast 3 /LPF 0 - 2 01/31 The [facility] [place] URINE AND UA pH 5.5 5.0 - 8.0 01/31 The [facility] [place] URINE AND UA Glucose Negative Negative 01/31 The [facility] mg/dL mg/dL [place] URINE AND UA Ketones Negative Negative 01/31 The [facility] mg/dL mg/dL /2015 [place] URINE AND UA Bili Negative Negative 01/31 The STOOL [place] *NA* (02/01/16 4:31 PM) URINE AND UA Protein Negative Negative 01/31 The [facility] mg/dL mg/dL /2015 [place] URINE AND UA Color Yellow Yellow 01/31 The STOOL [place] *NA* (02/01/16 4:31 PM) URINE AND UA Turbidity Clear Clear 01/31 The STOOL /2015 [place] (02/01/16 4:31 PM) URINE AND UA Spec Grav 1.007 <=1.030 01/31 The STOOL [place] URINE CHEM U Chloride 41 meq/L 01/31 The [place] URINE CHEM U Creatinine 70.40 01/31 The mg/dL [place] URINE CHEM U Sodium 38 meq/L 01/31 The [place] Retroperit Retroperiton Clinical Indication: Renal insufficiency 01/31 - The [facility] [facility] - [facility] US US Comparison: None Read by: Ky [...] with hematuria or urinary tract infection. SL: [id number] CARDIAC Troponin-I null 0.00 - 01/30 The ENZYMES 0.40 [place] CHEM PANEL Procalcitoni 0.13 ng/mL 0.00 - 01/30 The n Lvl 0.10 [place] CHEM PANEL Lactic Acid 1.7 mMol/L 0.5 - 2.2 01/30 The Lvl /2015 [place] CHEM PANEL Bili Total 0.4 mg/dL 0.2 - 1.3 01/30 The [place] CHEM PANEL Total 7.7 g/dL 6.4 - 8.4 01/30 The Protein [place] CHEM PANEL AST 19 unit/L 0 - 37 01/30 The [place] CHEM PANEL ALT 23 unit/L 0 - 65 01/30 The [place] CHEM PANEL Alk Phos 58 unit/L 39 - 136 01/30 The [place] CHEM PANEL Albumin Lvl 2.8 g/dL 3.5 - 5.0 01/30 The [place] CHEM PANEL A/G Ratio 0.6 0.7 - 1.6 01/30 The [place] CHEM PANEL Globulin 4.9 g/dL 2.7 - 4.2 01/30 The [place] CHEM PANEL B/C Ratio 15 6 - 25 01/30 The [place] HEMATOLOGY PTT 42.4 s 22.9 - 01/30 The 35.8 [place] HEMATOLOGY PT 14.6 s 12.0 - 01/30 The 14.7 [place] HEMATOLOGY INR 1.11 0.85 - 01/30 The 1.17 [place] Ext Lower Ext Lower Clinical Indication: Right leg claudication and leg ulcer. 01/30 - The Arterial Arterial /2015 [place] Doppler Doppler [facility] Read by: Samson Ramirez MD Dictated Date/time: 01/31/16 20:20 Electronically Signed by: Samson Ramirez MD 01/31/16 20:25 FINAL REPORT TECHNIQUE: Sonographic evaluation of the right lower extremity arteries was performed with grayscale and color Doppler imaging with standard technique. FINDINGS: RIGHT: PLANT CONTROLLER: Monophasic waveforms with severely decreased peak systolic velocities. SFA: Monophasic waveforms. Spectral broadening. Mildly decreased peak systolic velocities. This may be related to collateral flow. POP: Monophasic waveforms. Spectral broadening with moderately decreased peak systolic velocities. ECHOCARDIOGRAPH TECHNICIAN: Monophasic waveforms. Spectral broadening with severely decreased [...] or conventional angiography for complete assessment. SL: [id number] Foot Foot series Clinical Indication: Pain and swelling , status post amputation 4 years ago 01/30 The series DX /2015 [facility] Comparison: None Read by: Ky Woods MD [...] the right foot may be beneficial. SL: [id number] LIPIDS VLDL 77 02/16 [place] LIPIDS HDL 29 mg/dL >=61 mg/dL 02/16 The [place] LIPIDS Chol 222 mg/dL <=199 02/16 The mg/dL [place] LIPIDS CHD Risk 7.66 4.00 - 02/16 The 7.30 [place] LIPIDS Trig 384 mg/dL <=149 02/16 The mg/dL [place] LIPIDS LDL 116 mg/dL <=99 mg/dL 02/16 The (Calculated) /2014 [place] CARDIAC CK MB Index 0.8 0.0 - 2.5 02/16 The ENZYMES /2014 [place] CARDIAC CK MB 0.6 ng/mL 0.5 - 3.6 02/16 The ENZYMES /2014 [place] CARDIAC Troponin-I null 0.00 - 02/16 The ENZYMES 0.40 [place] CARDIAC Total CK 76 unit/L 12 - 191 02/16 The ENZYMES [place] CARDIAC Troponin-I null 0.00 - 02/16 [facility] The ENZYMES 0.40 /2014 [place] CARDIAC Total CK 89 unit/L 12 - 191 02/16 MH The ENZYMES [place] CARDIAC CK MB Index 1.0 0.0 - 2.5 02/16 MH The ENZYMES [place] CARDIAC CK MB 0.9 ng/mL 0.5 - 3.6 02/16 MH The ENZYMES [place] THYROID TSH 2.000 0.360 - 02/16 MH The PANEL uIU/mL 3.740 /2014 [place] CARDIAC CK MB Index 0.8 0.0 - 2.5 02/15 MH The ENZYMES [place] CARDIAC Troponin-I null 0.00 - 02/15 MH The ENZYMES 0.40 [place] CARDIAC Total CK 111 unit/L 12 - 191 02/15 MH The ENZYMES [place] CARDIAC CK MB 0.9 ng/mL 0.5 - 3.6 02/15 MH The ENZYMES [place] CHEM PANEL eGFR 70 02/15 Result Comment: [...] is not recommended in the following populations: [place] 3m2 Individuals with unstable creatinine concentrations, including [...] 87 unit/L 39 - 136 02/15 MH [place] CHEM PANEL AST 23 unit/L 0 - 37 02/15 MH [place] CHEM PANEL ALT 27 unit/L 0 - 65 02/15 MH The [place] CHEM PANEL Albumin Lvl 3.4 g/dL 3.5 - 5.0 02/15 The [place] CHEM PANEL Total 7.7 g/dL 6.4 - 8.4 02/15 MH The Protein [place] CHEM PANEL A/G Ratio 0.8 0.7 - 1.6 02/15 The [place] CHEM PANEL Globulin 4.3 g/dL 2.0 - 4.0 02/15 The [place] CHEM PANEL B/C Ratio 6 6 - 25 02/15 The [place] CHEM PANEL AGAP 11.8 meq/L 10.0 - 02/15 The 20.0 [place] CHEM PANEL Bili Total 0.4 mg/dL 0.2 - 1.3 02/15 The [place] CHEM PANEL Calcium Lvl 9.2 mg/dL 8.5 - 10.5 02/15 The [place] CHEM PANEL CO2 25 meq/L 24 - 32 02/15 The [place] CHEM PANEL Glucose Lvl 88 mg/dL 70 - 99 02/15 The [place] CHEM PANEL Chloride Lvl 106 meq/L 95 - 109 02/15 The [place] CHEM PANEL Potassium 4.8 meq/L 3.5 - 5.1 02/15 The Lv [place] CHEM PANEL Sodium Lvl 138 meq/L 135 - 145 02/15 The [place] CHEM PANEL Creatinine 1.2 mg/dL 0.5 - 1.4 02/15 The l [place] CHEM PANEL BUN 7 mg/dL 7 - 22 02/15 The [place] CHEM PANEL Magnesium 2.0 mg/dL 1.8 - 2.4 02/15 The Lv [place] HEMATOLOGY Eosinophils 0.4 K/CMM 0.0 - 0.5 02/15 The # [place] HEMATOLOGY Basophils # 0.0 K/CMM 0.0 - 0.2 02/15 The [place] HEMATOLOGY Segs-Bands # 4.6 K/CMM 1.5 - 8.1 02/15 The [place] HEMATOLOGY Monocytes # 0.8 K/CMM 0.0 - 0.8 02/15 The [place] HEMATOLOGY Monocytes 10.3 % 2.0 - 12.0 02/15 The [place] HEMATOLOGY Eosinophils 5.0 % 0.0 - 4.0 02/15 The [place] HEMATOLOGY Basophils 0.4 % 0.0 - 1.0 02/15 The /2014 [place] HEMATOLOGY Lymphocytes 25.7 % 20.0 - 02/15 The 40.0 /2014 [place] HEMATOLOGY Lymphocytes 2.0 K/CMM 1.0 - 5.5 02/15 The # /2014 [place] HEMATOLOGY Segs 58.6 % 45.0 - 02/15 The 75.0 [place] HEMATOLOGY INR 1.00 0.85 - 02/15 The 1.17 [place] HEMATOLOGY PT 13.5 s 12.0 - 02/15 The 14.7 [place] HEMATOLOGY PTT 33.7 s 22.9 - 02/15 The 35.8 [place] HEMATOLOGY Platelet 170 K/CMM 133 - 450 02/15 The [place] HEMATOLOGY WBC 7.8 K/CMM 3.7 - 10.4 02/15 The [place] HEMATOLOGY MCH 33.3 pg 27.0 - 02/15 The 31.0 [place] HEMATOLOGY RBC 4.62 M/CMM 4.70 - 02/15 The 6.10 [place] HEMATOLOGY MCV 97.4 fL 80.0 - 02/15 The 94.0 [place] HEMATOLOGY Hgb 15.4 g/dL 14.0 - 02/15 The 18.0 [place] HEMATOLOGY Hct 45.0 % 42.0 - 02/15 The 54.0 [place] HEMATOLOGY MCHC 34.2 g/dL 32.0 - 02/15 The 36.0 [place] HEMATOLOGY MPV 7.0 fL 7.4 - 10.4 02/15 The [place] HEMATOLOGY RDW 16.0 % 11.5 - 02/15 The 14.5 [place] Chest 2 Chest 2 NAME: REMEDIOS SANCHEZ 02/15 - The views DX views DX - [place] : 1965 SEX: M Ordering Physician: Jaciel [...] 02/09 - The complete complete DX /2014 [place] DX : 1965 SEX: M Ordering Physician: [...] U Cocaine Negative Negative 01/23 The SCREEN [place] *NA* (01/23/15 3:10 PM) DRUG U Opiate Scr Negative Negative 01/23 The [place] *NA* (01/23/15 3:10 PM) DRUG U Cannab Scr Negative Negative 01/23 The [place] *NA* (01/23/15 3:10 PM) DRUG U Phencyc Negative Negative 01/23 The SCREEN [place] *NA* (01/23/15 3:10 PM) DRUG UDS Note See Note 01/23 The [place] (01/23/15 3:10 PM) DRUG U Shoshana Scr Negative Negative 01/23 The [place] *NA* (01/23/15 3:10 PM) DRUG U Benzodia Positive Negative 01/23 The SCREEN [place] *ABN* (01/23/15 3:10 PM) DRUG U Amph Scr Negative Negative 01/23 The [place] *NA* (01/23/15 3:10 PM) URINE AND UA [...] 0.0 - 2.5 01/23 MH The ENZYMES [place] CARDIAC Troponin-I null 0.00 - 01/23 MH The ENZYMES 0.40 /2014 [place] CARDIAC Total CK 170 unit/L 12 - 191 01/23 MH The ENZYMES [place] CARDIAC CK MB 1.2 ng/mL 0.5 - 3.6 01/23 The ENZYMES [place] CHEM PANEL eGFR 54 01/23 Result Comment: [...] is not recommended in the following populations: [place] 3m2 Individuals with unstable creatinine concentrations, including [...] A/G Ratio 1.0 0.7 - 1.6 01/23 [place] CHEM PANEL AST 23 unit/L 0 - 37 01/23 The [place] CHEM PANEL Albumin Lvl 4.3 g/dL 3.5 - 5.0 01/23 [place] CHEM PANEL ALT 39 unit/L 0 - 65 01/23 The [place] CHEM PANEL Total 8.8 g/dL 6.4 - 8.4 01/23 The Protein [place] CHEM PANEL Calcium Lvl 9.3 mg/dL 8.5 - 10.5 01/23 [place] CHEM PANEL AGAP 20.5 meq/L 10.0 - 01/23 MH The 20.0 [place] CHEM PANEL Globulin 4.5 g/dL 2.0 - 4.0 01/23 [place] CHEM PANEL B/C Ratio 10 6 - 25 01/23 [place] CHEM PANEL Bili Total 0.5 mg/dL 0.2 - 1.3 01/23 MH The [place] CHEM PANEL Alk Phos 88 unit/L 39 - 136 01/23 MH The [place] CHEM PANEL Potassium 4.5 meq/L 3.5 - 5.1 01/23 MH The Lvl [place] CHEM PANEL Sodium Lvl 139 meq/L 135 - 145 01/23 The [place] CHEM PANEL CO2 17 meq/L 24 - 32 01/23 The [place] CHEM PANEL Chloride Lvl 106 meq/L 95 - 109 01/23 MH The [place] CHEM PANEL Glucose Lvl 114 mg/dL 70 - 99 01/23 MH The [place] CHEM PANEL Creatinine 1.5 mg/dL 0.5 - 1.4 01/23 MH The Lv [place] CHEM PANEL BUN 15 mg/dL 7 - 22 01/23 The [place] HEMATOLOGY Segs 89.7 % 45.0 - 01/23 MH The 75.0 [place] HEMATOLOGY Segs-Bands # 11.6 K/CMM 1.5 - 8.1 01/23 The [place] HEMATOLOGY Lymphocytes 0.8 K/CMM 1.0 - 5.5 01/23 MH The [place] HEMATOLOGY Lymphocytes 6.5 % 20.0 - 01/23 The 40.0 [place] HEMATOLOGY Monocytes 3.2 % 2.0 - 12.0 01/23 MH The [place] HEMATOLOGY Monocytes # 0.4 K/CMM 0.0 - 0.8 01/23 The [place] HEMATOLOGY Eosinophils 0.0 K/CMM 0.0 - 0.5 01/23 MH The [place] HEMATOLOGY Basophils # 0.1 K/CMM 0.0 - 0.2 01/23 MH The [place] HEMATOLOGY Eosinophils 0.2 % 0.0 - 4.0 01/23 The [place] HEMATOLOGY Basophils 0.4 % 0.0 - 1.0 01/23 The [place] HEMATOLOGY PT 14.2 s 12.0 - 01/23 MH The 14.7 [place] HEMATOLOGY INR 1.07 0.85 - 01/23 MH The 1.17 [place] HEMATOLOGY PTT 31.2 s 22.9 - 01/23 MH The 35.8 [place] HEMATOLOGY MPV 8.3 fL 7.4 - 10.4 01/23 The [place] HEMATOLOGY MCHC 32.8 g/dL 32.0 - 01/23 The 36.0 [place] HEMATOLOGY RDW 17.0 % 11.5 - 01/23 MH The 14.5 [place] HEMATOLOGY Platelet 202 K/CMM 133 - 450 01/23 The [place] HEMATOLOGY Hct 51.7 % 42.0 - 01/23 The 54.0 [place] HEMATOLOGY MCV 97.9 fL 80.0 - 01/23 The 94.0 [place] HEMATOLOGY MCH 32.1 pg 27.0 - 01/23 The 31.0 [place] HEMATOLOGY Hgb 17.0 g/dL 14.0 - 01/23 The 18.0 [place] HEMATOLOGY WBC 12.9 K/CMM 3.7 - 10.4 01/23 The [place] HEMATOLOGY RBC 5.28 M/CMM 4.70 - 01/23 The 6.10 [place] TOXICOLOGY Etoh (%) null 01/23 The [place] TOXICOLOGY Ethanol Lvl null 01/23 [place] Brain wo Brain wo Name: REMEDIOS SANCHEZ 01/23 - The contrast contrast CT /2014 [facility] [place] : 1965 Read by: Tayla Thorne [...] is not recommended in the following populations: [address] Individuals with unstable creatinine concentrations, including [...] Total 0.3 mg/dL 0.2 - 1.3 11/20 [place] CHEM PANEL AST 18 unit/L 0 - 37 11/20 [place] CHEM PANEL Alk Phos 88 unit/L 39 - 136 11/20 [place] CHEM PANEL ALT 36 unit/L 0 - 65 11/20 [place] CHEM PANEL Albumin Lvl 4.0 g/dL 3.5 - 5.0 11/20 [place] CHEM PANEL Total 8.8 g/dL 6.4 - 8.4 11/20 The Protein [place] CHEM PANEL CO2 22 meq/L 24 - 32 11/20 The [place] CHEM PANEL Calcium Lvl 9.5 mg/dL 8.5 - 10.5 11/20 The [place] CHEM PANEL Chloride Lvl 103 meq/L 95 - 109 11/20 The [place] CHEM PANEL Sodium Lvl 135 meq/L 135 - 145 11/20 The [place] CHEM PANEL Potassium 4.2 meq/L 3.5 - 5.1 11/20 The Lvl [place] CHEM PANEL Creatinine 1.2 mg/dL 0.5 - 1.4 11/20 The Lvl [place] CHEM PANEL Glucose Lvl 110 mg/dL 70 - 99 11/20 4Interpretive Data: Adult reference range values reflect the clinical guidelines MH of the [place]. [place] CHEM PANEL BUN 7 mg/dL 7 - 22 11/20 The [place] CHEM PANEL Globulin 4.8 g/dL 2.0 - 4.0 11/20 The [place] CHEM PANEL A/G Ratio 0.8 0.7 - 1.6 11/20 The [place] CHEM PANEL B/C Ratio 6 6 - 25 11/20 The [place] CHEM PANEL AGAP 14.2 meq/L 10.0 - 11/20 The 20.0 [place] HEMATOLOGY Eosinophils 3.2 % 0.0 - 4.0 11/20 The [place] HEMATOLOGY Lymphocytes 16.7 % 20.0 - 11/20 The 40.0 [place] HEMATOLOGY Monocytes 6.2 % 2.0 - 12.0 11/20 The [place] HEMATOLOGY Segs 73.3 % 45.0 - 11/20 The 75.0 [place] HEMATOLOGY Basophils 0.6 % 0.0 - 1.0 11/20 The [place] HEMATOLOGY Basophils # 0.1 K/CMM 0.0 - 0.2 11/20 The [place] HEMATOLOGY Eosinophils 0.3 K/CMM 0.0 - 0.5 11/20 The # [place] HEMATOLOGY Monocytes # 0.6 K/CMM 0.0 - 0.8 11/20 The [place] HEMATOLOGY Lymphocytes 1.6 K/CMM 1.0 - 5.5 11/20 The # [place] HEMATOLOGY Segs-Bands # 6.8 K/CMM 1.5 - 8.1 11/20 The [place] HEMATOLOGY Platelet 170 K/CMM 133 - 450 11/20 The [place] HEMATOLOGY MPV 7.6 fL 7.4 - 10.4 11/20 The [place] HEMATOLOGY MCHC 33.8 g/dL 32.0 - 11/20 The 36.0 [place] HEMATOLOGY RDW 14.2 % 11.5 - 11/20 The 14. [place] HEMATOLOGY MCH 33.1 pg 27.0 - 11/20 The 31.0 [place] HEMATOLOGY MCV 97.9 fL 80.0 - 11/20 The 94.0 [place] HEMATOLOGY Hgb 14.2 g/dL 14.0 - 11/20 The 18.0 [place] HEMATOLOGY Hct 42.1 % 42.0 - 11/20 The 54.0 [place] HEMATOLOGY WBC 9.3 K/CMM 3.7 - 10.4 11/20 The [place] HEMATOLOGY RBC 4.30 M/CMM 4.70 - 11/20 The 6. [place] TOXICOLOGY Vanco Tr TND unknown 11/20 [place] TOXICOLOGY Vanco Tr 7.7 ug/ml 11/20 5Interpretive Data: Therapeutic Range: Trough: 10 - 20 ug/mL [place] Peak: 20 - 40 ug/mL Potential Toxicity: [...] is not recommended in the following populations: [place] 3m2 Individuals with unstable creatinine concentrations, including [...] 1.7 mg/dL 0.5 - 1.4 11/17 The [place] CHEM PANEL BUN 14 mg/dL 7 - 22 11/17 [place] ELECTROLYT Potassium 4.3 meq/L 3.5 - 5.1 11/17 The ES [place] HEMATOLOGY Hct 36.8 % 42.0 - 11/17 The 54.0 [place] HEMATOLOGY MCV 97.6 fL 80.0 - 11/17 The 94.0 [place] HEMATOLOGY MCH 33.2 pg 27.0 - 11/17 The 31.0 [place] HEMATOLOGY Hgb 12.5 g/dL 14.0 - 11/17 The 18.0 [place] HEMATOLOGY WBC 7.7 K/CMM 3.7 - 10.4 11/17 [place] HEMATOLOGY RBC 3.77 M/CMM 4.70 - 11/17 The 6.10 [place] HEMATOLOGY RDW 14.0 % 11.5 - 11/17 The 14. [place] HEMATOLOGY Platelet 155 K/CMM 133 - 450 11/17 [place] HEMATOLOGY MPV 7.7 fL 7.4 - 10.4 11/17 The [place] HEMATOLOGY MCHC 34.0 g/dL 32.0 - 11/17 The 36.0 [place] HEMATOLOGY Segs-Bands # 5.7 K/CMM 1.5 - 8.1 11/17 [place] HEMATOLOGY Eosinophils 4.3 % 0.0 - 4.0 11/17 The [place] HEMATOLOGY Basophils # 0.0 K/CMM 0.0 - 0.2 11/17 The [place] HEMATOLOGY Basophils 0.3 % 0.0 - 1.0 11/17 The [place] HEMATOLOGY Monocytes 5.1 % 2.0 - 12.0 11/17 [place] HEMATOLOGY Lymphocytes 16.3 % 20.0 - 11/17 The 40.0 [place] HEMATOLOGY Lymphocytes 1.2 K/CMM 1.0 - 5.5 11/17 The [place] HEMATOLOGY Eosinophils 0.3 K/CMM 0.0 - 0.5 11/17 The [place] HEMATOLOGY Monocytes # 0.4 K/CMM 0.0 - 0.8 11/17 [place] HEMATOLOGY Segs 74.0 % 45.0 - 11/17 The 75.0 [place] TOXICOLOGY Vanco Tr TND unknown 11/17 [place] TOXICOLOGY Vanco Tr 24.4 ug/ml 11/17 6Interpretive Data: Therapeutic Range: Trough: 10 - 20 ug/mL [place] Peak: 20 - 40 ug/mL Potential Toxicity: [...] is not recommended in the following populations: [place] 3m2 Individuals with unstable creatinine concentrations, including [...] 1.5 mg/dL 0.5 - 1.4 11/13 The [place] CHEM PANEL BUN 11 mg/dL 7 - 22 11/13 [place] ELECTROLYT Potassium 4.5 meq/L 3.5 - 5.1 11/13 The ES [place] HEMATOLOGY MCH 32.7 pg 27.0 - 11/13 The 31.0 [place] HEMATOLOGY MCHC 33.6 g/dL 32.0 - 11/13 The 36.0 [place] HEMATOLOGY Platelet 186 K/CMM 133 - 450 11/13 [place] HEMATOLOGY RDW 14.0 % 11.5 - 11/13 The 14.5 [place] HEMATOLOGY MPV 7.4 fL 7.4 - 10.4 11/13 The [place] HEMATOLOGY Hgb 12.2 g/dL 14.0 - 11/13 The 18.0 [place] HEMATOLOGY RBC 3.73 M/CMM 4.70 - 11/13 The 6.10 [place] HEMATOLOGY MCV 97.6 fL 80.0 - 11/13 The 94.0 [place] HEMATOLOGY Hct 36.4 % 42.0 - 11/13 The 54.0 [place] HEMATOLOGY WBC 9.7 K/CMM 3.7 - 10.4 11/13 The [place] HEMATOLOGY Basophils # 0.1 K/CMM 0.0 - 0.2 11/13 The [place] HEMATOLOGY Lymphocytes 2.0 K/CMM 1.0 - 5.5 11/13 The [place] HEMATOLOGY Monocytes # 0.7 K/CMM 0.0 - 0.8 11/13 The [place] HEMATOLOGY Eosinophils 0.4 K/CMM 0.0 - 0.5 11/13 The [place] HEMATOLOGY Basophils 0.6 % 0.0 - 1.0 11/13 The [place] HEMATOLOGY Segs-Bands # 6.6 K/CMM 1.5 - 8.1 11/13 The [place] HEMATOLOGY Lymphocytes 20.5 % 20.0 - 11/13 The 40.0 [place] HEMATOLOGY Monocytes 7.3 % 2.0 - 12.0 11/13 The [place] HEMATOLOGY Eosinophils 3.7 % 0.0 - 4.0 11/13 The [place] HEMATOLOGY Segs 67.9 % 45.0 - 11/13 The 75.0 [place] TOXICOLOGY Vanco Tr TND NA 11/13 The [place] TOXICOLOGY Vanco Tr 24.1 ug/ml 11/13 7Interpretive Data: Therapeutic Range: Trough: 10 - 20 ug/mL [place] Peak: 20 - 40 ug/mL Potential Toxicity: >80 ug/mL Vital Signs Vital Sign Value Date Comments Source Systolic (mm Hg) 84 04/05/2016 [facility] Diastolic (mm Hg) 47 04/05/2016 [facility] [place] Respitory Rate 18 04/05/2016 [place] Heart Rate 76 04/05/2016 [place] Systolic (mm Hg) 80 04/05/2016 [place] Diastolic (mm Hg) 49 04/05/2016 [place] Respitory Rate 18 04/05/2016 [place] Heart Rate 73 04/05/2016 [place] Respitory Rate 18 04/05/2016 [place] Heart Rate 72 04/05/2016 [place] Systolic (mm Hg) 79 04/05/2016 [place] Diastolic (mm Hg) 42 04/05/2016 [place] Temperature Oral (F) 97.7 F 04/05/2016 [place] Temperature Oral (F) 97.7 F 04/05/2016 [place] Temperature Oral (F) 98.2 F 04/05/2016 [place] Weight 98.6 04/05/2016 [place] BMI Calculated 28.81 04/05/2016 [place] Height 185 cm 04/05/2016 [place] Respitory Rate 18 03/14/2016 [place] Systolic (mm Hg) 119 03/14/2016 [place] Diastolic (mm Hg) 63 03/14/2016 [place] Systolic (mm Hg) 124 03/14/2016 [place] Diastolic (mm Hg) 58 03/14/2016 [place] Respitory Rate 16 03/14/2016 [place] Temperature Oral (F) 98.8 F 03/14/2016 [place] Respitory Rate 18 03/14/2016 [place] Systolic (mm Hg) 129 03/14/2016 [place] Diastolic (mm Hg) 62 03/14/2016 [place] Temperature Oral (F) 98.7 F 03/14/2016 [place] Heart Rate 95 03/14/2016 [place] BMI Calculated 28.69 03/13/2016 [place] Weight 98.636 03/13/2016 [place] Temperature Oral (F) 98.6 F 03/13/2016 [place] Height 185.42 cm 03/13/2016 [place] Heart Rate 105 03/13/2016 [place] Heart Rate 111 02/18/2016 [place] Temperature Oral (F) 98.8 F 02/18/2016 [place] Respitory Rate 18 02/18/2016 [facility] [place] Systolic (mm Hg) 110 02/18/2016 [facility] [place] Diastolic (mm Hg) 56 02/18/2016 [place] Temperature Oral (F) 98.3 F 02/18/2016 [facility] [place] Heart Rate 97 02/18/2016 [facility] [place] Systolic (mm Hg) 94 02/18/2016 [facility] [place] Diastolic (mm Hg) 56 02/18/2016 [facility] [place] Respitory Rate 18 02/18/2016 [place] Temperature Oral (F) 98.2 F 02/18/2016 [place] Heart Rate 86 02/18/2016 [facility] [place] Systolic (mm Hg) 112 02/18/2016 [facility] [place] Diastolic (mm Hg) 54 02/18/2016 [facility] [place] Respitory Rate 18 02/18/2016 [place] Weight 96.023 02/08/2016 [place] BMI Calculated 28.69 02/08/2016 [facility] [place] Weight 98.636 02/08/2016 [facility] [place] Height 185.42 cm 02/08/2016 [facility] [place] Weight 97.273 02/01/2016 [facility] [place] BMI Calculated 28.29 02/01/2016 [facility] [place] Height 185.42 cm 02/01/2016 [facility] [place] Height 185.42 cm 01/31/2016 [facility] [place] BMI Calculated 27.63 01/31/2016 [facility] [place] Respitory Rate 16 02/16/2015 [place] Temperature Oral (F) 98.0 F 02/16/2015 [place] Respitory Rate 18 02/16/2015 [place] Heart Rate 77 02/16/2015 [facility] [place] Systolic (mm Hg) 175 02/16/2015 [facility] [place] Diastolic (mm Hg) 94 02/16/2015 [facility] [place] Temperature Oral (F) 98.2 F 02/16/2015 [facility] [place] Heart Rate 74 02/16/2015 [facility] [place] Systolic (mm Hg) 164 02/16/2015 [facility] [place] Diastolic (mm Hg) 89 02/16/2015 [place] Respitory Rate 18 02/16/2015 [place] Temperature Oral (F) 97.5 F 02/16/2015 [facility] [place] Systolic (mm Hg) 145 02/16/2015 [facility] [place] Diastolic (mm Hg) 83 02/16/2015 [facility] [place] Heart Rate 72 02/16/2015 [facility] [place] Height 185.42 cm 02/16/2015 [facility] [place] BMI Calculated 28.58 02/16/2015 [facility] [place] Weight 98.267 02/16/2015 [facility] [place] Weight 13.636 02/15/2015 [facility] [place] BMI Calculated 3.97 02/15/2015 [facility] [place] Height 185.42 cm 02/15/2015 [place] Temperature Oral (F) 98.2 F 02/09/2015 [facility] [place] Heart Rate 88 02/09/2015 [facility] [place] Respitory Rate 18 02/09/2015 [facility] [place] Systolic (mm Hg) 173 02/09/2015 [facility] [place] Diastolic (mm Hg) 82 02/09/2015 [place] BMI Calculated 31.47 02/09/2015 [facility] [place] Weight 108.182 02/09/2015 [place] Height 185.42 cm 02/09/2015 [facility] [place] Systolic (mm Hg) 189 02/09/2015 [facility] [place] Diastolic (mm Hg) 97 02/09/2015 [place] Heart Rate 77 02/09/2015 [facility] [place] Respitory Rate 16 02/09/2015 [facility] [place] Systolic (mm Hg) 172 01/23/2015 [facility] [place] Diastolic (mm Hg) 79 01/23/2015 [facility] [place] Systolic (mm Hg) 174 01/23/2015 [facility] [place] Diastolic (mm Hg) 92 01/23/2015 [place] Systolic (mm Hg) 184 01/23/2015 [facility] [place] Diastolic (mm Hg) 86 01/23/2015 [place] Respitory Rate 18 01/23/2015 [place] Weight 104.545 01/23/2015 [facility] [place] Height 185.42 cm 01/23/2015 [place] BMI Calculated 30.41 01/23/2015 [facility] [place] Respitory Rate 18 01/23/2015 [place] Heart Rate 92 01/23/2015 [place] Temperature Oral (F) 98.5 F 01/23/2015 [place] Encounters Location Location Encounter Encounter Reason Attending ADM DC Status Source Details Type Number For Provider Date Date Visit [facility] [id number] Nabeel 10/31 11/30 [facility] /2013 [facility] EC Emergency [id number] Edozie 01/23 01/23 [facility] Lisandra /2014 [facility] EC Emergency [id number] Az Radnor 02/09 02/09 [facility] /2014 [facility] OBS [id number] Juan 02/15 02/16 [facility] /2014 [place] [facility] Inpatient [id number] Abbas 01/30 02/17 [facility] Kari /2015 [facility] Emergency [id number] Blanche 03/13 03/14 [facility] Diaz /2015 [facility] Outpatient [id number] Abb 04/05 04/06 [facility] Kari /2015 [facility] Procedures Procedure Code Date Perfomer Comments Source Amputation of toe [id number] [facility] Amputation of [id number] 2 toes The toe<sup>1</sup> [place] Blood transfusion [id number] [facility]
--- OUTSIDE RECORDS SUMMARY | 2018-08-07 15:06 | XMS REPORT ---
:1965 [facility] Address [address] [place] [address] Dr. Monsivais [address] [place] [id number] Care Team Providers Name Role Phone VICTOR [...] Value Reference Range Comments CULTURE (BEAKER) (test bgzz=5301) No growth in 5 days STOOL CULTURE + SHIGA [id number] 09:59:00 Test Item Value Reference Range Comments CULTURE (BEAKER) (test No Salmonella, Shigella or yugq=0291) Campylobacter isolated STOOL PATH [id number] 09:01:00 Test Item Value Reference Range Comments PATHOGEN EXAM CHARGED (BEAKER) (test kxns=3511) Done BASIC METABOLIC [id number] 06:59:00 Test Item Value Reference Range Comments SODIUM (BEAKER) (test 137 meq/L 136-145 aigf=637) POTASSIUM (BEAKER) (test 3.6 meq/L 3.5-5.1 suge=158) CHLORIDE (BEAKER) (test 110 meq/L 98-107 qgim=996) CO2 (BEAKER) (test 16 meq/L 22-29 qpqg=954) BLOOD UREA NITROGEN 18 mg/dL 7-21 (BEAKER) (test oyuf=083) CREATININE (BEAKER) (test 2.02 mg/dL 0.57-1.25 elpm=710) GLUCOSE RANDOM (BEAKER) 91 mg/dL 70-105 (test lnva=742) CALCIUM (BEAKER) (test 9.3 mg/dL 8.4-10.2 ogrg=476) EGFR (BEAKER) (test 35 mL/min/1.73 sq m ESTIMATED GFR IS NOT mzrw=3962) ACCURATE CREATININE CLEARANCE IN PREDICTING GLOMERULAR FILTRATION RATE. ESTIMATED GFR IS NOT APPLICABLE FOR DIALYSIS PATIENTS. SHIGA TOXIN [id number] 15:48:00 Test Item Value Reference Range Comments SHIGA TOXIN 1 (BEAKER) (test uhtc=8635) Not detected Not detected SHIGA TOXIN 2 (BEAKER) (test zakd=1808) Not detected Not detected CLOSTRIDIUM DIFFICILE TOXIN [id number] 15:13:00 Test Item Value Reference Range Comments CLOSTRIDIUM DIFFICILE TOXIN, PCR (BEAKER) (test Not Detected Not Detected dyeu=1911) This qualitative real-time polymerase chain reaction assay [...] a positive result is not recommended.BLOOD GAS, [id number] 11:03:00 Test Item Value Reference Range Comments PH ARTERIAL (BEAKER) (test oskc=841) 7.38 7.35-7.45 PCO2 ARTERIAL (BEAKER) (test jtck=886) 28 mmHg 35-45 PO2 ARTERIAL (BEAKER) (test snfp=206) 95 mmHg 80-90 O2 SATURATION ARTERIAL (BEAKER) (test tbjq=959) 97.4 % 96.0-97.0 HCO3 ARTERIAL (BEAKER) (test dody=020) 16 mmol/L 21-29 BASE EXCESS ARTERIAL (BEAKER) (test nsjj=536) -7.2 mmol/L -2.0-3.0 PATIENT TEMPERATURE (BEAKER) (test sixq=6894) 36.5 C FIO2 (BEAKER) (test pknz=8305) 21.0 % BASIC METABOLIC [id number] 05:14:00 Test Item Value Reference Range Comments SODIUM (BEAKER) (test 136 meq/L 136-145 xqql=362) POTASSIUM (BEAKER) (test 3.9 meq/L 3.5-5.1 fice=550) CHLORIDE (BEAKER) (test 111 meq/L 98-107 cafl=334) CO2 (BEAKER) (test 13 meq/L 22-29 udgh=285) BLOOD UREA NITROGEN 20 mg/dL 7-21 (BEAKER) (test juun=385) CREATININE (BEAKER) (test 2.70 mg/dL 0.57-1.25 dguq=535) GLUCOSE RANDOM (BEAKER) 77 mg/dL 70-105 (test siek=134) CALCIUM (BEAKER) (test 9.3 mg/dL 8.4-10.2 scea=695) EGFR (BEAKER) (test 25 mL/min/1.73 sq m ESTIMATED GFR IS NOT gktd=3479) ACCURATE CREATININE CLEARANCE IN PREDICTING GLOMERULAR FILTRATION RATE. ESTIMATED GFR IS NOT APPLICABLE FOR DIALYSIS PATIENTS. PTH, [id number] 05:03:00 Test Item Value Reference Range Comments PARATHYROID HORMONE INTACT (BEAKER) (test 41.8 pg/mL 8.5-72.5 wugr=821) BASIC METABOLIC [id number] 07:10:00 Test Item Value Reference Range Comments SODIUM (BEAKER) (test 136 meq/L 136-145 pbzt=392) POTASSIUM (BEAKER) (test 3.4 meq/L 3.5-5.1 bibo=114) CHLORIDE (BEAKER) (test 109 meq/L 98-107 byzm=038) CO2 (BEAKER) (test 15 meq/L 22-29 rbxk=427) BLOOD UREA NITROGEN 23 mg/dL 7-21 (BEAKER) (test pgyp=557) CREATININE (BEAKER) (test 3.91 mg/dL 0.57-1.25 yqnm=936) GLUCOSE RANDOM (BEAKER) 79 mg/dL 70-105 (test butm=085) CALCIUM (BEAKER) (test 8.9 mg/dL 8.4-10.2 rbfu=857) EGFR (BEAKER) (test 16 mL/min/1.73 sq m ESTIMATED GFR IS NOT cndr=4606) ACCURATE CREATININE CLEARANCE IN PREDICTING GLOMERULAR FILTRATION RATE. ESTIMATED GFR IS NOT APPLICABLE FOR DIALYSIS PATIENTS. SODIUM, RANDOM [id number] 06:58:00 Test Item Value Reference Range Comments SODIUM URINE (BEAKER) (test kpnc=046) 65 meq/L Reference Range: No NormalsPROTHROMBIN [id number] 06:47:00 Test Item Value Reference Range Comments PROTIME (BEAKER) (test bers=626) 14.5 seconds 11.7-14.7 INR (BEAKER) (test hcau=139) 1.1 <=5.9 RECOMMENDED COUMADIN/WARFARIN INR THERAPY RANGESSTANDARD DOSE: 2.0 - 3.0 Includes: PROPHYLAXIS forvenous thrombosis, systemic embolization; TREATMENT for venous thrombosis and/or pulmonary embolus.HIGH RISK: Target INR is 2.5-3.5 for patients with mechanical heart valves.RAPID DRUG SCREEN, [id number] 15: 43:00 Test Item Value Reference Range Comments BARBITURATE URINE (BEAKER) (test tzfz=048) Negative Negative BENZODIAZEPINE SCREEN URINE (BEAKER) (test Positive Negative ajjm=397) COCAINE (METAB.) SCREEN (BEAKER) (test ztgt=2887) Negative Negative METHADONE SCREEN (BEAKER) (test kmxh=2869) Negative Negative OPIATE SCREEN URINE (BEAKER) (test vooe=661) Negative Negative CANNABINOID SCREEN URINE (BEAKER) (test vbgb=286) Negative Negative AMPH/METHAMPH SCREEN (BEAKER) (test sqcp=9419) Negative Negative PHENCYCLIDINE SCREEN URINE (BEAKER) (test onuv=843) Negative Negative OXYCODONE SCREEN URINE (BEAKER) (test vccx=8720) Negative Negative DRUG CUTOFF CONC.Cocaine 300 ng/mL Cannabinoid 50 ng/mL Benzodiazepine 200 ng/mLBarbiturate 200 ng/ mLPhencyclidine 25 ng/mLOpiate 300 ng/mLMethadone 300 ng/mLAmphetamine/ 1000 ng/mL MethamphetamineOxycodone 300 ng/mLThis assay provides an unconfirmed qualitative test result for the clinical management of patients in emergency situations. Chain of custody not maintained. Some eylf-ypi-igxnttx medications, as well as adulterants, may cause inaccurate results. Clinical correlation should be applied. A more comprehensive drug screen or confirmation of a detected drug may be performed upon request.URINE [id number] 14:33:00 Test Item Value Reference Range Comments CULTURE (BEAKER) (test edre=3167) No growth BASIC METABOLIC [id number] 08:09:00 Test Item Value Reference Range Comments SODIUM (BEAKER) (test 136 meq/L 136-145 bnog=944) POTASSIUM (BEAKER) (test 3.5 meq/L 3.5-5.1 Specimen slightly vdjb=114) hemolyzed CHLORIDE (BEAKER) (test 107 meq/L 98-107 mfin=292) CO2 (BEAKER) (test 15 meq/L 22-29 igup=240) BLOOD UREA NITROGEN 25 mg/dL 7-21 (BEAKER) (test zphj=413) CREATININE (BEAKER) (test 4.75 mg/dL 0.57-1.25 Specimen slightly hpao=510) hemolyzed GLUCOSE RANDOM (BEAKER) 74 mg/dL 70-105 (test mtsy=129) CALCIUM (BEAKER) (test 8.5 mg/dL 8.4-10.2 msxe=391) EGFR (BEAKER) (test 13 mL/min/1.73 sq m ESTIMATED GFR IS NOT dbrk=2960) ACCURATE CREATININE CLEARANCE IN PREDICTING GLOMERULAR FILTRATION RATE. ESTIMATED GFR IS NOT APPLICABLE FOR DIALYSIS PATIENTS. CBC W/PLT COUNT & AUTO [id number] 06:38:00 Test Item Value Reference Range Comments WHITE BLOOD CELL COUNT (BEAKER) (test qfzi=516) 9.9 K/ L 3.5-10.5 RED BLOOD CELL COUNT (BEAKER) (test bfav=034) 4.01 M/ L 4.63-6.08 HEMOGLOBIN (BEAKER) (test kxla=913) 13.2 GM/DL 13.7-17.5 HEMATOCRIT (BEAKER) (test zjip=274) 38.1 % 40.1-51.0 MEAN CORPUSCULAR VOLUME (BEAKER) (test zcid=638) 95.0 fL 79.0-92.2 MEAN CORPUSCULAR HEMOGLOBIN (BEAKER) (test 32.9 pg 25.7-32.2 ghnr=867) MEAN CORPUSCULAR HEMOGLOBIN CONC (BEAKER) (test 34.6 GM/DL 32.3-36.5 wafp=962) RED CELL DISTRIBUTION WIDTH (BEAKER) (test 13.1 % 11.6-14.4 gqhq=671) PLATELET COUNT (BEAKER) (test khfe=451) 121 K/CU MM 150-450 MEAN PLATELET VOLUME (BEAKER) (test qmuz=185) 10.1 fL 9.4-12.4 NUCLEATED RED BLOOD CELLS (BEAKER) (test 0 /100 WBC 0-0 iuzi=735) NEUTROPHILS RELATIVE PERCENT (BEAKER) (test 73 % hgdz=454) LYMPHOCYTES RELATIVE PERCENT (BEAKER) (test 17 % kunb=040) MONOCYTES RELATIVE PERCENT (BEAKER) (test 8 % lewf=094) EOSINOPHILS RELATIVE PERCENT (BEAKER) (test 2 % fuqk=131) BASOPHILS RELATIVE PERCENT (BEAKER) (test 0 % qktb=920) NEUTROPHILS ABSOLUTE COUNT (BEAKER) (test 7.25 K/ L 1.78-5.38 bzet=256) LYMPHOCYTES ABSOLUTE COUNT (BEAKER) (test 1.66 K/ L 1.32-3.57 eucv=073) MONOCYTES ABSOLUTE COUNT (BEAKER) (test 0.76 K/ L 0.30-0.82 nceh=472) EOSINOPHILS ABSOLUTE COUNT (BEAKER) (test 0.19 K/ L 0.04-0.54 wyog=007) BASOPHILS ABSOLUTE COUNT (BEAKER) (test 0.03 K/ L 0.01-0.08 eunq=880) IMMATURE GRANULOCYTES-RELATIVE PERCENT (BEAKER) 0 % 0-1 (test puex=3172) U/S, RENAL, [id number] 22:34:00Reason for exam:->acute kidney injuryFINAL REPORT Renal [...] [place] Verified Date/Time: 2016 22:34:25 Reading Location:[facility] C0[facility] Consult Reading Room MR, BRAIN, WITHOUT [id number] 19:18:00Reason for exam:->Stroke evaluationFINAL REPORT MRI Brain [...] MDReport Verified Date/Time: 04/17/2017 19:18:34 Reading Location: [facility] Radiology Reading Room EEG MONITORING WITH VIDEO RECORDING EACH 24 [id number] 18:01:00DATE OF TEST: 04/17/2017 DATE OF REPORT 04/17/2017 ACC: [id number] EE Start time: 16:42 Stop time: 18: 44 ICD-10: R56.9 CPT Code: 27570 HISTORY: 51 y/o woman with history of [...] Shahnaz Davis MD Neurophysiology Attending URINALYSIS W/ [id number] 11:57:00 Test Item Value Reference Range Comments COLOR (BEAKER) (test zakr=955) Light Yellow CLARITY (BEAKER) (test jpjs=288) Clear SPECIFIC GRAVITY UA (BEAKER) (test qqqa=796) 1.006 1.001-1.035 PH UA (BEAKER) (test jmps=190) 6.0 5.0-8.0 PROTEIN UA (BEAKER) (test cbgs=677) 30 mg/dL Negative GLUCOSE UA (BEAKER) (test otov=120) Negative Negative KETONES UA (BEAKER) (test yflk=028) Negative Negative BILIRUBIN UA (BEAKER) (test uuki=839) Negative Negative BLOOD UA (BEAKER) (test ibsc=807) Small Negative NITRITE UA (BEAKER) (test lguu=577) Negative Negative LEUKOCYTE ESTERASE UA (BEAKER) (test wckb=363) Large Negative UROBILINOGEN UA (BEAKER) (test hkou=668) 0.2 mg/dL 0.2-1.0 RBC UA (BEAKER) (test kvjy=773) 7 /HPF WBC UA (BEAKER) (test xkoa=995) 21 /HPF BACTERIA (BEAKER) (test yvzs=629) Occasional SQUAMOUS EPITHELIAL (BEAKER) (test xspe=673) < /HPF URIC ACID CRYSTALS (BEAKER) (test yayy=3663) Rare SOURCE(BEAKER) (test tggl=2203) Urine, Cooper EOSINOPHIL SMEAR, [id number] 11:56:00 Test Item Value Reference Range Comments EOSINOPHIL SMEAR, URINE (BEAKER) (test No EOS seen No EOS seen ilum=1338) CREATININE, RANDOM [id number] 11:24:00 Test Item Value Reference Range Comments CREATININE URINE (BEAKER) (test gbbn=005) 69.7 mg/dL Reference Range: No NormalsSODIUM, RANDOM [id number] 11:24:00 Test Item Value Reference Range Comments SODIUM URINE (BEAKER) (test cqoq=184) 58 meq/L Reference Range: No NormalsUREA NITROGEN, RANDOM [id number] 11:24:00 Test Item Value Reference Range Comments UREA NITROGEN URINE (BEAKER) (test ouxi=421) 172 mg/dL Reference Range: No NormalsCREATINE KINASE (CK)2017-04-17 11:06:00 Test Item Value Reference Range Comments CREATINE KINASE TOTAL (BEAKER) (test vuyw=983) 136 U/L 29-200 BASIC METABOLIC [id number] 04:53:00 Test Item Value Reference Range Comments SODIUM (BEAKER) (test 137 meq/L 136-145 dffg=890) POTASSIUM (BEAKER) (test 3.4 meq/L 3.5-5.1 bxxz=838) CHLORIDE (BEAKER) (test 105 meq/L 98-107 akgj=252) CO2 (BEAKER) (test 21 meq/L 22-29 wjwe=497) BLOOD UREA NITROGEN 19 mg/dL 7-21 (BEAKER) (test omzv=662) CREATININE (BEAKER) (test 3.75 mg/dL 0.57-1.25 bgkj=777) GLUCOSE RANDOM (BEAKER) 100 mg/dL 70-105 (test thpn=479) CALCIUM (BEAKER) (test 8.6 mg/dL 8.4-10.2 iegf=406) EGFR (BEAKER) (test 17 mL/min/1.73 sq m ESTIMATED GFR IS NOT iutw=9092) ACCURATE CREATININE CLEARANCE IN PREDICTING GLOMERULAR FILTRATION RATE. ESTIMATED GFR IS NOT APPLICABLE FOR DIALYSIS PATIENTS. CBC W/PLT COUNT & AUTO [id number] 04:19:00 Test Item Value Reference Range Comments WHITE BLOOD CELL COUNT (BEAKER) (test bmyd=470) 12.0 K/ L 3.5-10.5 RED BLOOD CELL COUNT (BEAKER) (test ozfm=649) 4.19 M/ L 4.63-6.08 HEMOGLOBIN (BEAKER) (test rkur=160) 13.8 GM/DL 13.7-17.5 HEMATOCRIT (BEAKER) (test zqtr=214) 40.4 % 40.1-51.0 MEAN CORPUSCULAR VOLUME (BEAKER) (test pkkd=782) 96.4 fL 79.0-92.2 MEAN CORPUSCULAR HEMOGLOBIN (BEAKER) (test 32.9 pg 25.7-32.2 cdvm=659) MEAN CORPUSCULAR HEMOGLOBIN CONC (BEAKER) (test 34.2 GM/DL 32.3-36.5 lzle=209) RED CELL DISTRIBUTION WIDTH (BEAKER) (test 13.4 % 11.6-14.4 drcw=950) PLATELET COUNT (BEAKER) (test yqca=050) 118 K/CU MM 150-450 MEAN PLATELET VOLUME (BEAKER) (test bmsv=616) 9.5 fL 9.4-12.4 NUCLEATED RED BLOOD CELLS (BEAKER) (test 0 /100 WBC 0-0 ebxt=079) NEUTROPHILS RELATIVE PERCENT (BEAKER) (test 77 % xltg=802) LYMPHOCYTES RELATIVE PERCENT (BEAKER) (test 15 % kyxm=700) MONOCYTES RELATIVE PERCENT (BEAKER) (test 7 % vequ=682) EOSINOPHILS RELATIVE PERCENT (BEAKER) (test 1 % qshg=718) BASOPHILS RELATIVE PERCENT (BEAKER) (test 0 % wftk=147) NEUTROPHILS ABSOLUTE COUNT (BEAKER) (test 9.20 K/ L 1.78-5.38 blet=359) LYMPHOCYTES ABSOLUTE COUNT (BEAKER) (test 1.78 K/ L 1.32-3.57 vejq=854) MONOCYTES ABSOLUTE COUNT (BEAKER) (test 0.82 K/ L 0.30-0.82 luht=002) EOSINOPHILS ABSOLUTE COUNT (BEAKER) (test 0.12 K/ L 0.04-0.54 sotv=180) BASOPHILS ABSOLUTE COUNT (BEAKER) (test 0.04 K/ L 0.01-0.08 zerb=099) IMMATURE GRANULOCYTES-RELATIVE PERCENT (BEAKER) 0 % 0-1 (test qxut=2648) EEG MONITORING WITH VIDEO RECORDING EACH 24 [id number] 17:57:00DATE OF TEST : 04/16/2017DATE OF REPORT 04/16/2017 ACC: [id number]: Start time: 08: 42 Stop time: 16:42ICD-10: R56.9CPT Code: 88243KVBMFAJ: 51 y/o woman with history of epilepsy [...] report.Phoebe Villar MDEpilepsy Attending EEG AWAKE/ASLEEP AND [id number] 13:27:00Reason for exam:->status epilepticusDATE OF TEST: DATE OF REPORT 04/16/2017 ACC: [id number] EEart time: 08:21 Stop time: 08:42ICD-10: R56.9CPT Code: 26061OLJBLGO: 51 y/o woman with history of epilepsy [...] this report.Phoebe Villar MDEpilepsy Attending HEPATIC FUNCTION [id number] 12:59:00 Test Item Value Reference Range Comments TOTAL PROTEIN (BEAKER) (test 8.0 gm/dL 6.0-8.3 Specimen moderately hemolyzed snct=968) ALBUMIN (BEAKER) (test 3.8 g/dL 3.5-5.0 Specimen moderately hemolyzed gsmp=5396) BILIRUBIN TOTAL (BEAKER) (test 0.3 mg/dL 0.2-1.2 Specimen moderately hemolyzed ndgb=687) BILIRUBIN DIRECT (BEAKER) 0.1 mg/dL 0.1-0.5 Specimen moderately hemolyzed (test pfcx=850) ALKALINE PHOSPHATASE (BEAKER) 79 U/L 40-150 (test cnnt=539) AST (SGOT) (BEAKER) (test 34 U/L 5-34 Specimen moderately hemolyzed davu=169) ALT (SGPT) (BEAKER) (test 30 U/L 6-55 Specimen moderately jure=665) hemolyzed RAD, CHEST, 1 VIEW, NON [id number] 09:16:00Reason for exam:-> intubatedShould this be performed [...] Hernandez Verified Date/Time: 04/16/2017 09:16:32 Reading Location: [facility] Radiology Reading Room VITAMIN [id number] 07:31:00 Test Item Value Reference Range Comments VITAMIN B12 (BEAKER) (test iqwf=962) 450 pg/mL 213-816 FOLATE, [id number] 07:31:00 Test Item Value Reference Range Comments FOLATE (BEAKER) (test gyiq=032) 8.0 ng/mL >=7.0 URINALYSIS W/ [id number] 07:09:00 Test Item Value Reference Range Comments COLOR (BEAKER) (test indn=890) Light Yellow CLARITY (BEAKER) (test llgq=121) Hazy SPECIFIC GRAVITY UA (BEAKER) (test xvzj=895) 1.008 1.001-1.035 PH UA (BEAKER) (test jwus=994) 6.0 5.0-8.0 PROTEIN UA (BEAKER) (test djoi=405) 20 mg/dL Negative GLUCOSE UA (BEAKER) (test ccqy=799) 200 mg/dL Negative KETONES UA (BEAKER) (test tzcl=771) Negative Negative BILIRUBIN UA (BEAKER) (test lflq=991) Negative Negative BLOOD UA (BEAKER) (test yjkt=283) Negative Negative NITRITE UA (BEAKER) (test icvy=401) Negative Negative LEUKOCYTE ESTERASE UA (BEAKER) (test mtnj=533) Negative Negative UROBILINOGEN UA (BEAKER) (test ykmu=104) 0.2 mg/dL 0.2-1.0 RBC UA (BEAKER) (test ecjo=018) < /HPF WBC UA (BEAKER) (test wydv=435) 1 /HPF BACTERIA (BEAKER) (test jvru=567) Rare SQUAMOUS EPITHELIAL (BEAKER) (test xers=736) < /HPF HYALINE CASTS (BEAKER) (test txdy=503) 8 /LPF SOURCE(BEAKER) (test uoqq=5762) [id number] 05:59:00 Test Item Value Reference Range Comments MAGNESIUM (BEAKER) (test 3.0 mg/dL 1.6-2.6 Specimen moderately hemolyzed grwm=367) [id number] 05:59:00 Test Item Value Reference Range Comments PHOSPHORUS (BEAKER) (test 3.0 mg/dL 2.3-4.7 Specimen moderately hemolyzed xaze=194) BASIC METABOLIC [id number] 05:59:00 Test Item Value Reference Range Comments SODIUM (BEAKER) (test 137 meq/L 136-145 bcii=614) POTASSIUM (BEAKER) (test 3.8 meq/L 3.5-5.1 Specimen moderately rnlw=784) hemolyzed CHLORIDE (BEAKER) (test 99 meq/L 98-107 iamm=797) CO2 (BEAKER) (test 23 meq/L 22-29 pgvr=545) BLOOD UREA NITROGEN 14 mg/dL 7-21 (BEAKER) (test izbr=518) CREATININE (BEAKER) (test 1.48 mg/dL 0.57-1.25 Specimen moderately lzrm=618) hemolyzed GLUCOSE RANDOM (BEAKER) 386 mg/dL 70-105 (test siyh=809) CALCIUM (BEAKER) (test 8.0 mg/dL 8.4-10.2 tgtb=443) EGFR (BEAKER) (test 50 mL/min/1.73 sq m ESTIMATED GFR IS NOT jzgj=1714) ACCURATE CREATININE CLEARANCE IN PREDICTING GLOMERULAR FILTRATION RATE. ESTIMATED GFR IS NOT APPLICABLE FOR DIALYSIS PATIENTS. PROTHROMBIN [id number] 05:33:00 Test Item Value Reference Range Comments PROTIME (BEAKER) (test slkt=340) 15.7 seconds 11.7-14.7 INR (BEAKER) (test erap=551) 1.3 <=5.9 RECOMMENDED COUMADIN/WARFARIN INR THERAPY RANGESSTANDARD DOSE: 2.0 - 3.0 Includes: PROPHYLAXIS forvenous thrombosis, systemic embolization; TREATMENT for venous thrombosis and/or pulmonary embolus.HIGH RISK: Target INR is 2.5-3.5 for patients with mechanical heart valves.BLOOD GAS, [id number] 05:31:00 Test Item Value Reference Range Comments PH ARTERIAL (BEAKER) (test ecvi=118) 7.34 7.35-7.45 PCO2 ARTERIAL (BEAKER) (test beoq=480) 43 mmHg 35-45 PO2 ARTERIAL (BEAKER) (test cpkv=408) 123 mmHg 80-90 O2 SATURATION ARTERIAL (BEAKER) (test sllg=823) 98.2 % 96.0-97.0 HCO3 ARTERIAL (BEAKER) (test xlqr=557) 22 mmol/L 21-29 BASE EXCESS ARTERIAL (BEAKER) (test xxks=834) -3.2 mmol/L -2.0-3.0 PATIENT TEMPERATURE (BEAKER) (test cwkt=3080) 37.2 C FIO2 (BEAKER) (test gwwf=0455) 60.0 % CBC W/PLT COUNT & AUTO [id number] 05:08:00 Test Item Value Reference Range Comments WHITE BLOOD CELL COUNT (BEAKER) (test ccwu=808) 16.2 K/ L 3.5-10.5 RED BLOOD CELL COUNT (BEAKER) (test isaf=551) 4.53 M/ L 4.63-6.08 HEMOGLOBIN (BEAKER) (test hepo=757) 14.9 GM/DL 13.7-17.5 HEMATOCRIT (BEAKER) (test xwpi=286) 43.7 % 40.1-51.0 MEAN CORPUSCULAR VOLUME (BEAKER) (test jnrf=132) 96.5 fL 79.0-92.2 MEAN CORPUSCULAR HEMOGLOBIN (BEAKER) (test 32.9 pg 25.7-32.2 fzhz=852) MEAN CORPUSCULAR HEMOGLOBIN CONC (BEAKER) (test 34.1 GM/DL 32.3-36.5 qkpk=957) RED CELL DISTRIBUTION WIDTH (BEAKER) (test 13.2 % 11.6-14.4 osfj=428) PLATELET COUNT (BEAKER) (test saxm=568) 127 K/CU MM 150-450 MEAN PLATELET VOLUME (BEAKER) (test iydi=193) 10.0 fL 9.4-12.4 NUCLEATED RED BLOOD CELLS (BEAKER) (test 0 /100 WBC 0-0 ycba=003) NEUTROPHILS RELATIVE PERCENT (BEAKER) (test 84 % lvyx=996) LYMPHOCYTES RELATIVE PERCENT (BEAKER) (test 7 % zync=846) MONOCYTES RELATIVE PERCENT (BEAKER) (test 9 % pkqf=089) EOSINOPHILS RELATIVE PERCENT (BEAKER) (test 0 % xxnt=118) BASOPHILS RELATIVE PERCENT (BEAKER) (test 0 % oeyo=978) NEUTROPHILS ABSOLUTE COUNT (BEAKER) (test 13.58 K/ L 1.78-5.38 rmri=108) LYMPHOCYTES ABSOLUTE COUNT (BEAKER) (test 1.06 K/ L 1.32-3.57 kmrw=307) MONOCYTES ABSOLUTE COUNT (BEAKER) (test 1.38 K/ L 0.30-0.82 teaa=133) EOSINOPHILS ABSOLUTE COUNT (BEAKER) (test 0.01 K/ L 0.04-0.54 lliy=020) BASOPHILS ABSOLUTE COUNT (BEAKER) (test 0.02 K/ L 0.01-0.08 fqsi=541) IMMATURE GRANULOCYTES-RELATIVE PERCENT (BEAKER) 1 % 0-1 (test aznk=6504)
[2018-08-07] MEDS ORDERED: levETIRAcetam 1,000 MG in NA CHLORIDE 0.9% 100 ML IV ONE (15:15)
[2018-08-07 15:27] LABS: Absolute Lymphocytes (CBC) 0.5 K/uL (0.7-4.9); Absolute Monocytes 0.5 K/uL (0.1-1.3); Basophils % 0.9 % (0-1.3); Eosinophils % 0.1 % (0-4.4); Hematocrit 47.7 % (39.6-49.0); Lymphocytes % 4.3 % (15.3-44.8); Monocytes % 4.4 % (3.3-12.3); RBC Red Blood Cell Count 4.86 M/uL (4.33-5.43)
[2018-08-07 15:47] LABS: Potassium 4.1 mmol/L (3.5-5.1)
--- NOTE | 2018-08-07 16:24 | ER ---
Nurse's Notes [facility] Name: Karlos Leblanc Age: 52 yrs Sex: Male : 1965 Arrival Date: 08/07/2018 Time: 14:51 Bed 2 Private MD: Diagnosis: Epilepsy and recurrent seizures Presentation: 08/07 14:52 Presenting complaint: EMS states: Patient's roommate called EMS and states that he has aj1 had 4 seizures today. Patient is confused, oriented x2. Patient was given 4mg Ativan IV en route. Transition of care: patient was not received from another setting of care. Onset of symptoms was August 07, 2018. Risk Assessment: Do you want to hurt yourself or someone else? Patient reports no desire to harm self or others. Initial Sepsis Screen: Does the patient meet any 2 criteria? HR > 90 bpm. No. Patient's initial sepsis screen is negative. Does the patient have a suspected source of infection? No. Patient's initial sepsis screen is negative. Care prior to arrival: IV initiated. 20 GA, in the left antecubital area. 14:52 Method Of Arrival: EMS: [facility] aj1 14:52 Acuity: KENIA 3 aj1 Triage Assessment: 14:56 General: Appears in no apparent distress. comfortable, Behavior is restless, aj1 uncooperative. Pain: Denies pain. Neuro: Level of Consciousness is awake, alert, confused, Oriented to person, place. Historical: - Allergies: 14:56 NKDA; aj1 - PMHx: 14:56 CHF; COPD; CVA; Myocardial infarction; PVD; Seizures; ADD/ADHD; aj1 - Immunization history:: Flu vaccine status is unknown. - Social history:: Smoking status: unknown. - Ebola Screening: : Patient denies travel to an Ebola-affected area in the 21 days before illness onset. Screenin:04 Abuse screen: Denies threats or abuse. Denies injuries from another. Nutritional aj1 screening: No deficits noted. Tuberculosis screening: No symptoms or risk factors identified. Assessment: 15:04 General: Appears in no apparent distress. comfortable, Behavior is. Pain: Denies pain. aj1 Neuro: Level of Consciousness is awake, alert, obeys commands, confused, Oriented to person, place. Neuro: Seizure activity reported prior to arrival. Patient is post-ictal at this time. Cardiovascular: Patient's skin is warm and dry. Rhythm is sinus rhythm. Respiratory: Airway is patent Respiratory effort is even, unlabored, Respiratory pattern is regular, symmetrical. GI: No signs and/or symptoms were reported involving the gastrointestinal system. : No signs and/or symptoms were reported regarding the genitourinary system. EENT: No signs and/or symptoms were reported regarding the EENT system. Derm: No signs and/or symptoms reported regarding the dermatologic system. Skin is pink, warm \T\ dry. normal. Musculoskeletal: No signs and/or symptoms reported regarding the musculoskeletal system. Circulation, motion, and sensation intact. 16:10 Reassessment: Patient and/or family updated on plan of care and expected duration. Pain aj1 level reassessed. General: Appears in no apparent distress. comfortable, Behavior is calm, cooperative, appropriate for age. Pain: Denies pain. Neuro: Level of Consciousness is awake, alert, obeys commands, Oriented to person, place, time, situation. Cardiovascular: Patient's skin is warm and dry. Respiratory: Airway is patent Respiratory effort is even, unlabored, Respiratory pattern is regular, symmetrical. Derm: No signs and/or symptoms reported regarding the dermatologic system. Skin is pink, warm \T\ dry. normal. Musculoskeletal: No signs and/or symptoms reported regarding the musculoskeletal system. Circulation, motion, and sensation intact. 16:50 Reassessment: Patient was notified that he has been discharged, but he will need a ride aj1 before he leaves. Patient states that he will call someone to pick him up. 17:10 Reassessment: Patient appears in no apparent distress at this time. No changes from aj1 previously documented assessment. Patient and/or family updated on plan of care and expected duration. Pain level reassessed. Patient is alert, oriented x 3, equal unlabored respirations, skin warm/dry/pink. 17:50 Reassessment: Spoke with patient's brother via telephone, who states he will pick the aj1 patient up. 18:09 Reassessment: Patient appears in no apparent distress at this time. No changes from aj1 previously documented assessment. Patient and/or family updated on plan of care and expected duration. Pain level reassessed. Patient is alert, oriented x 3, equal unlabored respirations, skin warm/dry/pink. Vital Signs: 14:56 BP 172 / 67; Pulse 87; Resp 24; Temp 98.8; Pulse Ox 97% on R/A; Pain 0/10; aj1 15:45 BP 153 / 71; Pulse 85; Resp 24; Pulse Ox 99% ; sv 16:29 BP 159 / 66; Pulse 78; Resp 20; Pulse Ox 99% on R/A; aj1 17:30 BP 157 / 75; Pulse 72; Resp 18; Pulse Ox 99% ; aj1 Patricia Coma Score: 14:56 Eye Response: spontaneous(4). Verbal Response: confused(4). Motor Response: obeys aj1 commands(6). Total: 14. ED Course: 14:51 Patient arrived in ED. aj1 14:52 Seema Nguyen FNP-C is [facility]. kb 14:52 Aaron Pichardo MD is Attending Physician. kb 14:55 Triage completed. aj1 14:56 Arm band placed on. aj1 14:57 Maintain EMS IV. Dressing intact. Good blood return noted. Site clean \T\ dry. Gauge \T\ sv site: 20G L AC. 15:04 Kell Jane, RN is Primary Nurse. aj1 15:04 No provider procedures requiring assistance completed. aj1 15:04 Patient has correct armband on for positive identification. Bed in low position. Call aj1 light in reach. Side rails up X 1. Seizure precautions initiated. hotel or motel room service supervisor on. Pulse ox on. NIBP on. 15:16 EKG done, by phlebotomy technologist. reviewed by Seema TELLES. sm3 18:09 IV discontinued, intact, bleeding controlled, No redness/swelling at site. Pressure aj1 dressing applied. Administered Medications: 15:21 Drug: Keppra 1000 mg Route: IV; Rate: calculated rate; Site: left antecubital; aj1 15:45 Follow up: IV Status: Completed infusion; IV Intake: 100ml aj1 Intake: 15:45 IV: 100ml; Total: 100ml. aj1 Outcome: 16:24 Discharge ordered by . kb 18:22 Discharged to home with crutches, with family. aj1 18:22 Condition: good 18:22 Discharge instructions given to patient, Instructed on discharge instructions, follow up and referral plans. Demonstrated understanding of instructions, follow-up care. 18:22 Patient left the ED. aj1 Signatures: Seema Nguyen, LLOY[place] Kell Barrow RN RN aj1 Lata Valladares, RN RN eMera Neville 3
--- NOTE | 2018-08-07 16:25 | EDPHYS ---
Physician Documentation [facility] Name: Karlos Leblanc Age: 52 yrs Sex: Male : 1965 Arrival Date: 08/07/2018 Time: 14:51 Bed 2 Private MD: ED Physician Aaron Pichardo HPI: 08/07 16:19 This 52 yrs old Male presents to ER via EMS with complaints of Seizure. kb 16:19 The patient presents after having a single isolated seizure. Character of seizure(s): kb Loss of consciousness: the patient experienced loss of consciousness, during seizure(s), Motor activity: generalized, shaking all over, Incontinence: none. Seizure onset: just prior to arrival. Context: the seizure(s) was witnessed, by a friend, occurred at home. Seizure Hx: Original onset: longstanding, Seizure medications: Keppra. Associated injury: The patient did not suffer any apparent associated injury. EMS care: Ativan, 4 mg(s), IV. Current symptoms: confusion. The patient has experienced similar episodes in the past. The patient has not recently seen a physician. EMS reports pt was posticle when they arrived on scene. Pt knew his name only, but was confused and trying to get off of stretcher in ambulance so Ativan was administered. Pt now oriented to name and . Pt trying to pull gown off to cover up with. Not fully aware of surroundings. Historical: - Allergies: 14:56 NKDA; aj1 - PMHx: 14:56 CHF; COPD; CVA; Myocardial infarction; PVD; Seizures; ADD/ADHD; aj1 - Immunization history:: Flu vaccine status is unknown. - Social history:: Smoking status: unknown. - Ebola Screening: : Patient denies travel to an Ebola-affected area in the 21 days before illness onset. ROS: 16:18 Constitutional: Negative for fever, chills, and weight loss, ENT: Negative for injury, kb pain, and discharge, Neck: Negative for injury, pain, and swelling, Cardiovascular: Negative for chest pain, palpitations, and edema, Respiratory: Negative for shortness of breath, cough, wheezing, and pleuritic chest pain, Abdomen/GI: Negative for abdominal pain, nausea, vomiting, diarrhea, and constipation, MS/Extremity: Negative for injury and deformity, Skin: Negative for injury, rash, and discoloration. 16:18 Neuro: Positive for seizure activity. Exam: 16:18 Constitutional: This is a well developed, well nourished patient who is awake, alert, kb and in no acute distress. Head/Face: Normocephalic, atraumatic. Eyes: Pupils equal round and reactive to light, extra-ocular motions intact. Lids and lashes normal. Conjunctiva and sclera are non-icteric and not injected. Cornea within normal limits. Periorbital areas with no swelling, redness, or edema. ENT: Nares patent. No nasal discharge, no septal abnormalities noted. Tympanic membranes are normal and external auditory canals are clear. Oropharynx with no redness, swelling, or masses, exudates, or evidence of obstruction, uvula midline. Mucous membranes moist. Neck: Trachea midline, no thyromegaly or masses palpated, and no cervical lymphadenopathy. Supple, full range of motion without nuchal rigidity, or vertebral point tenderness. No Meningismus. Chest/axilla: Normal chest wall appearance and motion. Nontender with no deformity. No lesions are appreciated. Cardiovascular: Regular rate and rhythm with a normal S1 and S2. No gallops, murmurs, or rubs. Normal PMI, no JVD. No pulse deficits. Respiratory: Lungs have equal breath sounds bilaterally, clear to auscultation and percussion. No rales, rhonchi or wheezes noted. No increased work of breathing, no retractions or nasal flaring. Abdomen/GI: Soft, non-tender, with normal bowel sounds. No distension or tympany. No guarding or rebound. No evidence of tenderness throughout. Skin: Warm, dry with normal turgor. Normal color with no rashes, no lesions, and no evidence of cellulitis. MS/ Extremity: Pulses equal, no cyanosis. Neurovascular intact. Full, normal range of motion. 16:18 Neuro: Orientation: to person. Vital Signs: 14:56 BP 172 / 67; Pulse 87; Resp 24; Temp 98.8; Pulse Ox 97% on R/A; Pain 0/10; aj1 15:45 BP 153 / 71; Pulse 85; Resp 24; Pulse Ox 99% ; sv 16:29 BP 159 / 66; Pulse 78; Resp 20; Pulse Ox 99% on R/A; aj1 17:30 BP 157 / 75; Pulse 72; Resp 18; Pulse Ox 99% ; aj1 Patricia Coma Score: 14:56 Eye Response: spontaneous(4). Verbal Response: confused(4). Motor Response: obeys aj1 commands(6). Total: 14. MDM: 14:52 Patient medically screened. kb 16:15 Data reviewed: vital signs, nurses notes. Data interpreted: Pulse oximetry: on room air kb is 99 %. Interpretation: normal. Counseling: I had a detailed discussion with the patient and/or guardian regarding: the historical points, exam findings, and any diagnostic results supporting the discharge/admit diagnosis, lab results, the need for outpatient follow up, a family practitioner, to return to the emergency department if symptoms worsen or persist or if there are any questions or concerns that arise at home. ED course: Woke pt from sleeping by calling his name. Pt alert and oriented after awakened. Pt did not remember coming in, educated that he had a seizure at home. Pt states he did not take his seizure medication. Reports he is feeling back to normal now, no complaints. Will discharge home. . 08/07 14:58 Order name: CBC with Diff; Complete Time: 16:38 kb 08/07 14:58 Order name: Basic Metabolic Panel; Complete Time: 15:53 kb 08/07 14:58 Order name: EKG; Complete Time: 14:59 kb 08/07 14:58 Order name: EKG - Nurse/Tech; Complete Time: 15:06 kb 08/07 15:29 Order name: CBC Smear Scan; Complete Time: 16:38 EDMS Administered Medications: 15:21 Drug: Keppra 1000 mg Route: IV; Rate: calculated rate; Site: left antecubital; aj1 15:45 Follow up: IV Status: Completed infusion; IV Intake: 100ml aj1 Disposition: 08/08 07:49 Co-signature as Attending Physician, Aaron Pichardo MD I agree with the assessment and riya plan of care. Disposition: 08/07/18 16:24 Discharged to Home. Impression: Epilepsy and recurrent seizures. - Condition is Stable. - Discharge Instructions: Seizure, Adult, [id number]. - Medication Reconciliation Form, Thank You Letter, Antibiotic Education, Prescription Opioid Use form. - Follow up: Emergency Department; When: As needed; Reason: Worsening of condition. Follow up: Private Physician; When: 2 - 3 days; Reason: Recheck today's complaints, Continuance of care, Re-evaluation by your physician. Signatures: Dispatcher [employer] Seema Amezcua, KOKI CORBETT-Kell Garcia RN RN aj1 Aaron Pichardo MD MD cha Corrections: (The following items were deleted from the chart) 08/07 18:22 16:24 08/07/2018 16:24 Discharged to Home. Impression: Epilepsy and recurrent seizures. aj1 Condition is Stable. Forms are Medication Reconciliation Form, Thank You Letter, Antibiotic Education, Prescription Opioid Use. Follow up: Emergency Department; When: As needed; Reason: Worsening of condition. Follow up: Private Physician; When: 2 - 3 days; Reason: Recheck today's complaints, Continuance of care, Re-evaluation by your physician. kb
[2018-08-07 16:34] LABS: Platelet Estimate ADEQ; Urine White Blood Cell Casts OK
[2018-08-07 16:35] LABS: Blood Morphology Comment NOT SEEN (NOT SEEN)
[2018-08-07 19:44] VITALS: TEMP 98.8
[2018-08-07 19:45] VITALS: O2SAT 99
[2018-08-07 19:47] VITALS: BP 157/75
--- NOTE | 2018-08-08 10:34 | EKG ---
Test Date: 2018-08-07 Test Time: 15:08:25 Community Relations Advisor: BIRGIT MEASUREMENT RESULTS: Intervals: Rate: 82 NE: 154 QRSD: 100 QT: 384 QTc: 448 [place]: P: 79 NE: 154 QRS: 37 T: 56 INTERPRETIVE STATEMENTS: Normal sinus rhythm Normal ECG Compared to ECG 05/01/2018 13:55:09 Sinus tachycardia no longer present Electronically Signed On 08-07-18 17:46:53 CDT by Parveen Perry
== END 2018-08-07 18:22 | disposition home or self-care (01) ==
LOC: ER 14:49
DX: G40.909 Epilepsy, unspecified, not intractable, without status epilepticus (principal)
CPT/HCPCS: 96365; 93005; 85025; 80048; 36415; 99284; J1953

== ENCOUNTER 2018-08-31 11:49 | Emergency (ER) | payer OTHER ==
--- OUTSIDE RECORDS SUMMARY | 2018-08-31 11:50 | XMS REPORT | Clinical Summary ---
:1965 Author Organization [facility] Address [address] [place] [address] Care Team Providers Name Role Phone Unavailable [...] Not on file Results Not on fileafter 08/30/2017 Insurance Payer Benefit Plan / Subscriber ID Type Phone Address Group [employer] - [employer] MEDICARE xxxxxxxx [facility] Contracted [phone] MEDICARE M[employer] HMO POS [id number] [place] [address]
--- OUTSIDE RECORDS SUMMARY | 2018-08-31 12:00 | XMS REPORT | Continuity of Care Document ---
:1965 Author Organization Interface Problems Problem Status Onset Classification Date Comments Source Date Reported ANEMIA Active 04/04/20 The 16 [place] Discharge 03/14/20 03/17/2016 The Diagnosis: Acute 16 [place] on chronic renal failure Discharge 03/14/20 03/17/2016 The Diagnosis: Anemia 16 [place] Discharge 03/14/20 03/17/2016 The Diagnosis: [address] [place] [address] Post-operative pain Discharge 03/14/20 03/17/2016 The Diagnosis: Acute 16 [place] hypokalemia OTHER Active 03/13/20 The 16 [place] FOOT GANGRENE Active 01/31/20 The 16 [place] LEFT FOOT SORES Active 01/31/20 The 16 [place] Discharge 02/17/20 02/19/2015 The Diagnosis: 15 [place] Hyperlipidemia Discharge 02/17/20 02/19/2015 The Diagnosis: 15 [place] Hypertension Discharge 02/17/20 02/19/2015 The Diagnosis: Angina 15 [place] pectoris CHEST PAIN Active 02/16/20 The 15 [place] CP Active 02/16/20 The 15 [place] Discharge 02/10/20 02/12/2015 The Diagnosis: Wrist 15 [place] sprain LEFT WRIST PAIN Active 02/10/20 The 15 [place] Discharge 01/24/20 01/26/2015 The Diagnosis: 15 [place] Epileptic seizure, generalized Discharge 01/24/20 01/26/2015 The Diagnosis: 15 [place] Cerebral seizure AMS Active 01/24/20 The 15 [place] WOUND INFECTION V Active 10/21/19 The NECFAS;CHRONIC 14 [place] OSTEOMY Acute Active Problem 04/08/2016 The osteomyelitis [facility] CHF - Congestive Active Problem 04/08/2016 The heart failure [place] HTN (<span Active Problem 04/08/2016 The ID="[id number]"> [place] Confirmed</span>) Bronchitis Active Problem 04/08/2016 [place] COPD Active Problem 04/08/2016 [place] Nose bleed Active Problem 04/08/2016 [place] Seizure Active Problem 04/08/2016 [place] H/O candidiasis Active Problem 04/08/2016 [place] H/O amputation of Active Problem 04/08/2016 The lesser toe [place] Hx of peripheral Active Problem 04/08/2016 The vascular disease [facility] BPH (<span Active Problem 04/08/2016 The ID="[id number]" [place] >Confirmed</span> ) CELLULITIS OF Active The FOOT [place] AC Active [facility] The OSTEOMYELITIS-UNS [facility] PEC CHEST PAIN NOS Active [place] GANGRENE, NOT Active The ELSEWHERE [facility] CLASSIFIED ANEMIA, Active The UNSPECIFIED [facility] Medications Medication Details Route Status Patient Ordering Order Source Instructions Provider Date Sodium Chloride IVPB, 150 Active The 0.9% IV ml/hr, PRN, 2015 [place] Start date: 04/05/16 8:00:00 NURSE RESEARCHER, Duration: 30, 1,000 ml EPINEPHrine 0.5 mg, 0.5 Active The mL, Route: 2015 [place] IVP, Drug form: INJ, PRN, PRN Other -See Comment, Start date: 04/05/16 7:22:00 NURSE RESEARCHER, Duration: 30 day, Stop date: 05/05/16 7:21:00 CSTNotes: MEDICATION WASTE Product Size: 1 mg Product Wasted: ___ mg Solu-CORTEF 100 mg, 2 mL, Active The Route: IVP2015 [place] Drug form: PDR/INJ, PRN, PRN Other -See Comment, Start date: 04/05/16 7:22:00 NURSE RESEARCHER, Duration: 30 day, Stop date: 05/05/16 7:21:00 CSTNotes: (Same as: Solu-CORTEF) Benadryl 50 mg, 1 mL, Active The Route: IVP, 2015 [place] Drug form: INJ, PRN, PRN Other -See Comment, Start date: 04/05/16 7:22:00 NURSE RESEARCHER, Duration: 30 day, Stop date: 05/05/16 7:21:00 CSTNotes: (Same as: Benadryl) Sodium Chloride IV, 0 ml/hr, Active The 0.9% IV PRN, PRN Blood 2015 [place] Transfusion, Start date: 04/05/16 7:21:00 NURSE RESEARCHER, Duration: 30, 250 ml heparin flush 500 unit, 5 Active The mL, Route: 2015 [place] IVP, Drug form: SOLN, PRN, PRN Line Flush, Start date: 04/05/16 7:21:00 NURSE RESEARCHER, Duration: 30 day, Stop date: 05/05/16 7:20:00 CSTNotes: (Same as: Heparin Lock Flush) BD Normal Saline 20 mL, Route: Active The Flush IVP, Drug 2015 [place] Form: INJ, PRN, PRN Line Flush, Start date: 04/05/16 7:21:00 NURSE RESEARCHER, Duration: 30 day, Stop date: 05/05/16 7:20:00 CSTNotes: (Same as: BD Posiflush) Benadryl 25 mg, 0.5 mL, Active The Route: IVP, 2015 [place] Drug form: INJ, Before Transfusion, PRN Blood Transfusion, Start date: 04/05/16 7:21:00 NURSE RESEARCHER, Duration: 30 day, Stop date: 05/05/16 7:20:00 CSTNotes: (Same as: Benadryl) Tylenol 650 mg, 2 tab, Active The Route: PO, 2015 [place] Drug form: TAB, Before Transfusion, PRN Blood Transfusion, Start date: 04/05/16 7:20:00 NURSE RESEARCHER, Duration: 30 day, Stop date: 05/05/16 7:19:00 CSTNotes: Do not exceed 4 gm/day. (Same as: Tylenol) Acetaminophen 325 1 tab, Route: Inactive The MG / Hydrocodone PO, Drug Form: 2015 [place] Bitartrate 5 MG TAB, Dosing Oral Tablet [[place] Weight 98.636, 5/325] kg, ONCE, STAT, Start date: 03/14/16 6:34:00 CDT, Stop date: 03/14/16 6:34:00 CDTNotes: (Same as: [place] 325/5) Do not exceed 4gm/day of acetaminophen. Acetaminophen 300 1 tab, PO, No Longer The MG / Codeine Q4H, PRN Pain, Active 2015 [place] Phosphate 30 MG X 2 day, # 12 Oral Tablet tab, 0 [Tylenol with Refill(s) Codeine #3] Zofran 4 mg, 2 mL, No Longer The Route: IVP, Active 2015 [place] Drug form: INJ, ONCE, Dosing Weight 98.636, kg, Priority: STAT, Start date: 03/13/16 23:18:00 CDT, Stop date: 03/13/16 23:18:00 CDTNotes: (Same as: Zofran) MEDICATION WASTE Product Size: 4 mg Product Wasted: ___ mg Dilaudid 0.5 mg, 0.5 No Longer The mL, Route: Active 2015 [place] IVP, Drug form: INJ, ONCE, Dosing Weight 98.636, kg, Priority: STAT, Start date: 03/13/16 23:18:00 CDT, Stop date: 03/13/16 23:18:00 CDTNotes: Same as: Dilaudid Sodium Chloride 500 mL, 500 No Longer The 0.154 MEQ/ML ml/hr, Infuse Active 2015 [place] Injectable Over: 1 hr, Solution Route: IV, 500, Drug form: INJ, ONCE, Priority: STAT, Dosing Weight 98.636 kg, Start date: 03/13/16 23:18:00 CDT, Duration: 1 doses or times, Stop date: 03/13/16 23:18:00 CDT Oxycodone 15 mg=3 tab, Active The Hydrochloride 5 MG PO, Q4H, PRN 2015 [place] Oral Tablet Pain Score 7-10, 0 Refill(s) Oxycodone 15 mg, 3 tab, Inactive The Hydrochloride 5 MG Route: PO, 2015 [place] Oral Tablet Drug form: TAB, Q4H, Dosing Weight 96.023, kg, PRN Pain Score 7-10, Start date: 02/18/16 8:43:00 CDT, Duration: 30 day, Stop date: 03/19/16 8:42:00 CDTNotes: (Same as: Roxicodone) Ceftriaxone 2 gm, Route: No Longer The IVPB, [id number], Active 2015 [place] Dosing Weight 96.023, kg, Start date: 02/17/16 15:00:00 CDT, Duration: 30 day, Stop date: 03/17/16 15:00:00 CDTNotes: (Same As: Rocephin). Use with 100 mL NS and infuse over 30 min MEDICATION WASTE Product Size: 2000 mg Product Wasted: ___ mg Albuterol 0.83 NEB, PRN, PRN Active The MG/ML Inhalant Respiratory 2015 [place] Solution Protocol, 0 Refill(s) chlorhexidine 1 appl, BATHE, Active The gluconate 40 MG/ML Q-M-W-F, 0 2015 [place] Medicated Liquid Refill(s) Soap tamsulosin 0.4 mg 0.4 mg=1 cap, Active The oral capsule PO, After 2015 [place] Dinner, 0 Refill(s) fluconazole 100 mg 200 mg=2 tab, Active The oral tablet PO, [id number], 0 2015 [place] Refill(s) pantoprazole 40 mg 40 mg=1 tab, Active The oral enteric PO, Before 2015 [place] coated tablet Breakfast, 0 Refill(s) Acetaminophen 325 1 tab, PO, Active The MG / Hydrocodone Q4H, PRN Pain 2015 [place] Bitartrate 5 MG Score 1-3, 0 Oral Tablet Refill(s) cefTRIAXone + 2 gm, Route: No Longer The sodium chloride IVPB, [id number], Active 2015 [place] 0.9% INJ 100 mL Dosing Weight 96.023, kg, Start date: 02/15/16 18:00:00 CDT, Duration: 2 day, Stop date: 02/16/16 18:00:00 CDTNotes: (Same As: Rocephin). Use with 100 mL NS and infuse over 30 min MEDICATION WASTE Product Size: 2000 mg Product Wasted: ___ mg Flomax 0.4 mg, 1 cap, No Longer The Route: PO, Active 2015 [place] Drug form: CAP, After Dinner, Dosing Weight [...] No Longer The Route: PO, Active 2015 [place] Drug form: TAB, [id number], Dosing Weight 96.023, kg, Start date: 02/12/16 16:00:00 CDT, Duration: 30 day, Stop date: 03/12/16 16:00:00 CDTNotes: (Same as: Diflucan) Dilaudid 1.5 mg, 0.75 No Longer The mL, Route: Active 2015 [place] IVP, Drug form: INJ, Q4H, Dosing Weight 96.023, kg, PRN Pain Score 7-10, Start date: 02/12/16 14:19:00 CDT, Stop date: 03/13/16 14:18:00 CDTNotes: Same as: Dilaudid gabapentin 600 mg, 2 cap, No Longer The Route: PO, Active 2015 [place] Drug form: CAP, TID, Dosing Weight 97.273, kg, Start date: 02/12/16 13:00:00 CDT, Duration: 30 day, Stop date: 03/13/16 9:00:00 CDTNotes: (Same as: Neurontin) Naloxone 0.4 mg, 1 mL, Inactive The Route: IVP, 2015 [place] Drug form: INJ, Q2MIN, Dosing Weight 96.023, kg, PRN Narcotic Reversal, Start date: 02/12/16 9:59:00 CDT, Duration: 8 doses or times, Stop date: Limited # of timesNotes: Same as Narcan Lorazepam 0.5 mg, 0.25 Inactive The mL, Route: 2015 [place] IVP, Drug form: INJ, Q20Min, Dosing Weight 96.023, kg, PRN Anxiety, Start date: 02/12/16 9:59:00 CDT, Duration: 3 doses or times, Stop date: Limited # of timesNotes: (Same as: Ativan) Ondansetron 4 mg, Route: Inactive The IVP, ONCE, 2015 [place] Dosing Weight 96.023, kg, PRN Nausea & Vomiting, Start date: 02/12/16 9:59:00 CDT Glycopyrrolate 0.2 mg, 1 mL, Inactive The Route: IVP, 2015 [place] Drug form: INJ, Q5Min, Dosing Weight 96.023, kg, PRN Bradycardia, Start date: 02/12/16 9:59:00 CDT, Duration: 3 doses or times, Stop date: Limited # of timesNotes: (Same as: [place]) Flumazenil 0.2 mg, 2 mL, Inactive The Route: IVP, 2015 [place] Drug form: INJ, PRN, Dosing Weight 96.023, kg, PRN Benzodiazepine Reversal, Initial dose, Start date: 02/12/16 9:59:00 CDT, Duration: 30 day, Stop date: 03/13/16 9:58:00 CDTNotes: (Same as: Romazicon) Fentanyl 25 microgram, Inactive The 0.5 mL, Route: 2015 [place] IVP, Drug form: INJ, Q5Min, Dosing Weight 96.023, kg, PRN Pain Score 4-6, Start date: 02/12/16 9:59:00 CDT, Duration: 4 doses or times, Stop date: Limited # of timesNotes: (Same as: Sublimaze) Preservative free. Hydralazine 10 mg, 0.5 mL, Inactive The Route: IVP, 2015 [place] Drug form: INJ, Q20Min, Dosing Weight 96.023, kg, PRN Elevated BP, Start date: 02/12/16 9:59:00 CDT, Duration: 2 doses or times, Stop date: Limited # of timesNotes: (Same as: Apresoline) Push over 5 minutes Hydromorphone 0.5 mg, 0.5 Inactive The mL, Route: 2015 [place] IVP, Drug form: INJ, Q5Min, Dosing Weight 96.023, kg, PRN Pain Score 7-10, Start date: 02/12/16 9:59:00 CDT, Duration: 4 doses or times, Stop date: Limited # of timesNotes: Same as: Dilaudid Labetalol 10 mg, 2 mL, Inactive The Route: IVP, 2015 [place] Drug form: INJ, Q5Min, Dosing Weight 96.023, kg, PRN Elevated BP, Start date: 02/12/16 9:59:00 CDT, Duration: 5 doses or times, Stop date: Limited # of times fentaNYL (ANES) Route: IV, Inactive The Drug form: 2015 [place] INJ, ONCE, Stop date: 02/12/16 8:40:00 CDT propofol (ANES) Route: IV, Inactive The Drug form: 2015 [place] INJ, ONCE, Stop date: 02/12/16 8:40:00 CDT lidocaine (ANES) Route: IV, Inactive The Drug form: 2015 [place] INJ, ONCE, Stop date: 02/12/16 8:40:00 CDT LR 1000 mL INJ Route: IV, Inactive The (ANES) Total Volume: 2015 [place] 1,000, Start date: 02/12/16 7:55:00 CDT, Stop date: 02/12/16 8:55:00 CDT Ceftriaxone 2 gm, Route: No Longer The IVPB, [id number], Active 2015 [place] Dosing Weight 96.023, kg, Start date: 02/11/16 13:00:00 CDT, Duration: 5 day, Stop date: 02/15/16 13:00:00 CDTNotes: (Same As: Rocephin). Use with 100 mL NS and infuse over 30 min MEDICATION WASTE Product Size: 2000 mg Product Wasted: ___ mg Dilaudid 1 mg, 1 mL, No Longer The Route: IVP, Active 2015 [place] Drug form: INJ, Q6H, Dosing Weight 96.023, kg, PRN Pain Score 7-10, Start date: 02/11/16 8:37:00 CDT, Duration: 30 day, Stop date: 03/12/16 8:36:00 CDTNotes: Same as: Dilaudid vancomycin 750 mg, 150 No Longer The mL, Route: Active 2015 [place] IVPB, Drug form: INJ, Q24H, Start date: 02/11/16 6:00:00 CDT, Duration: 30 day, Stop date: 03/11/16 6:00:00 CDTNotes: TIME CRITICAL MEDICATION Same as: Vancocin Infusion rate 2000 mg: infuse over 2.5 hours metoprolol 50 mg, 1 tab, No Longer The Route: PO, Active 2015 [place] Drug form: ERTAB, Daily, Start date: 02/10/16 9:00:00 CDT, Duration: 30 day, Stop date: 03/10/16 9:00:00 CDTNotes: (Same as: Toprol XL) May split tab, but do not crush. Alprazolam 1 MG 1 mg, 1 tab, No Longer The Oral Tablet Route: PO, Active 2015 [place] [Xanax] Drug form: TAB, Q12H, Dosing Weight 96.023, kg, PRN Anxiety, Start date: 02/10/16 8:19:00 CDT, Duration: 30 day, Stop date: 03/11/16 8:18:00 CDTNotes: With food or milk (Same as: Xanax) vancomycin 750 mg, 150 Inactive The mL, Route: 2015 [place] IVPB, Drug form: INJ, ONCE, Start date: 02/10/16 5:00:00 CDT, Stop date: 02/10/16 5:00:00 CDTNotes: TIME CRITICAL MEDICATION Same as: Vancocin Infusion rate 2001 mg: infuse over 2.5 hours Anoro 62.5mcg/25 Anoro No Longer The mcg 62.5mcg/25 Active 2015 [place] mcg, 1 puff, Route: INHALATION, RBID, 02/09/16 20:00:00 CDT, Duration: 30 day, Stop date: 03/10/16 8:00:00 CDT ketOROLAC 30 mg/mL 60 mg, Route: Inactive The injectable IVP, Drug 2015 [place] solution form: INJ, ONCE, Dosing Weight 96.023, kg, Start date: 02/09/16 17:40:00 CDT, Duration: 1 doses or times, Stop date: 02/09/16 17:40:00 CDT Vancomycin Dosing Vancomycin No Longer The per RPh Dosing per Active 2015 [facility], [facility] Drug form: MISC, Route: MISC, PRN, PRN Other -See Comment, 02/09/16 14:51:00 CDT, Duration: 30 day, Stop date: 03/10/16 14:50:00 CDT Dilaudid 1 mg, 1 mL, No Longer The Route: IVP, Active 2015 [place] Drug form: INJ, Q4H, Dosing Weight 96.023, kg, PRN Pain Score 7-10, Start date: 02/09/16 13:01:00 CDT, Duration: 30 day, Stop date: 03/10/16 13:00:00 CDTNotes: Same as: Dilaudid Sodium Chloride 500 mL, 500 Inactive The 0.154 MEQ/ML ml/hr, Infuse 2015 [place] Injectable Over: 1 hr, Solution Route: IV, 500, Drug form: INJ, ONCE, Priority: STAT, Dosing Weight 96.023 kg, Start date: 02/09/16 12:59:00 CDT, Duration: 1 doses or times, Stop date: 02/09/16 12:59:00 CDT pantoprazole 40 mg, 1 tab, No Longer The Route: PO, Active 2015 [place] Drug form: ECTAB, Before Breakfast, Dosing Weight 96.023, kg, Start date: 02/09/16 9:00:00 CDT, Stop date: 03/09/16 7:30:00 CDTNotes: Tablet should not be chewed or crushed. (Same as: Protonix) chlorhexidine 1 appl, Route: No Longer The gluconate 40 MG/ML BATHE, Active 2015 [place] Medicated Liquid Q-M-W-F, Drug Soap form: SOAP, Start date: 02/09/16 9:00:00 CDT, Duration: 30 day, Stop date: 03/08/16 9:00:00 CDTNotes: (Same As: M[place]) Simvastatin 20 mg, 1 tab, No Longer The Route: PO, Active 2015 [place] Drug form: TAB, Bedtime, Dosing Weight 96.023, kg, Start date: 02/08/16 21:00:00 CDT, Duration: 30 day, Stop date: 03/08/16 21:00:00 CDTNotes: (Same as: Zocor) Cefuroxime 1.5 gm, Route: No Longer The IVPB, [id number], Active 2015 [place] Dosing Weight 96.023, kg, Start date: 02/08/16 21:00:00 CDT, Duration: 3 doses or times, Stop date: 02/09/16 13:00:00 CDT Neutra-Phos 2 pkt, Route: No Longer The PO, Drug Form: Active 2015 [place] PDR/REC, Dosing Weight 96.023, kg, PRN, PRN [...] phosphate + sodium mL, Route: Active 2015 [place] chloride 0.9% 500 IVPB, Drug ml INJ [...] phosphate + sodium mL, Route: Active 2015 [place] chloride 0.9% INJ IVPB, PRN, 250 mL Dosing Weight 96.023, kg, PRN Abnormal Lab Result, Start date: 02/08/16 20:04:00 CDT, Duration: 30 day, Stop date: 03/09/16 20:03:00 CDT, FOR ICU USE ONLYNotes: (Same as: K Phosphate.) 1 mMol phoshate has 1.47 mEq potassium Infuse over 4 hours Magnesium Oxide 800 mg, 2 tab, No Longer The Route: PO, Active 2015 [place] Drug form: TAB, PRN, Dosing Weight 96.023, kg, PRN Abnormal Lab Result, FOR ICU USE ONLY, Start date: 02/08/16 20:04:00 CDT, Duration: 30 day, Stop date: 03/09/16 20:03:00 CDTNotes: (Same as: Mag-Ox 400) Magnesium oxide 247oh=720ts elemental magnesium Dose=____mg magnesium oxide (___mg elemental magnesium) Magnesium Sulfate 2 gm, 50 mL, No Longer The Route: IVPB, Active 2015 [place] Drug form: INJ, PRN, Dosing Weight 96.023, kg, PRN Abnormal Lab Result, Start date: 02/08/16 20:04:00 CDT, Duration: 30 day, Stop date: 03/09/16 20:03:00 CDT, FOR ICU USE ONLYNotes: WASTE: F/P - Sink; E - Municipal Trash Bin potassium chloride 20 mEq, 15 mL, No Longer The Route: NJ, Active 2015 [place] Drug form: LIQ, PRN, Dosing Weight 96.023, kg, PRN Abnormal Lab Result, Start date: 02/08/16 20:04:00 CDT, Duration: 30 day, Stop date: 03/09/16 20:03:00 CDT, FOR ICU USE ONLYNotes: (Same as: Potassium Chloride) sodium phosphate + 15 mmol, 5 mL, No Longer The sodium chloride Route: IVPB, Active 2015 [place] 0.9% INJ 250 mL PRN, Dosing Weight 96.023, kg, PRN Abnormal Lab Result, Start date: 02/08/16 20:04:00 CDT, Duration: 30 day, Stop date: 03/09/16 20:03:00 CDT, FOR ICU USE ONLY sodium phosphate + 45 mmol, 15 No Longer The sodium chloride mL, Route: Active 2015 [place] 0.9% 500 ml INJ IVPB, Drug 500 mL form: INJ, PRN, Dosing Weight 96.023, kg, PRN Abnormal Lab Result, Start date: 02/08/16 20:04:00 CDT, Duration: 30 day, Stop date: 03/09/16 20:03:00 CDT, FOR ICU USE ONLY Calcium Carbonate 500 mg, 1 tab, No Longer The 500 MG Chewable Route: PO, Active 2015 [place] Tablet Drug form: CHEWTAB, PRN, Dosing Weight 96.023, kg, PRN Abnormal Lab Result, FOR ICU USE ONLY, Start date: 02/08/16 20:04:00 CDT, Duration: 30 day, Stop date: 03/09/16 20:03:00 CDTNotes: (Same As: [place]) Calcium Carbonate 500 yl=953 mg elemental calcium Dose= mg calcium carbonate ( mg elemental calcium) Calcium Gluconate 1 gm, 10 mL, No Longer The Route: IVPB, Active 2015 [place] PRN, Dosing Weight 96.023, kg, PRN Abnormal Lab Result, Start date: 02/08/16 20:04:00 CDT, Duration: 30 day, Stop date: 03/09/16 20:03:00 CDT, FOR ICU USE ONLYNotes: WASTE: F/P - Sink; E - Municipal Trash Bin Albuterol 0.83 2.49 mg, 3 mL, No Longer The MG/ML Inhalant Route: NEB, Active 2015 [place] Solution Drug form: SOLN, PRN, Dosing Weight 96.023, kg, PRN Respiratory Protocol, Start date: 02/08/16 20:04:00 CDT, Duration: 30 day, Stop date: 03/09/16 20:03:00 CDTNotes: SEE RT DOCUMENTATION (Same as: Proventil) Dextrose 50% 25 gm, 50 mL, No Longer The Syringe Route: IVP, Active 2015 [place] Drug Form: INJ, Dosing Weight 96.023, kg, PRN, PRN Blood Glucose Results, Start date: 02/08/16 20:04:00 CDT, Duration: 30 day, Stop date: 03/09/16 20:03:00 CDT Docusate 100 mg, 1 cap, No Longer The Route: PO, Active 2015 [place] Drug form: CAP, BID, Dosing Weight 96.023, kg, PRN Constipation, Start date: 02/08/16 20:04:00 CDT, Duration: 30 day, Stop date: 03/09/16 20:03:00 CDTNotes: (Same as: Colace) (Do Not Crush) Glucagon 1 mg, Route: No Longer The IM, Drug form: Active 2015 [place] PDR/INJ, PRN, Dosing Weight 96.023, kg, PRN Blood Glucose Results, Start date: 02/08/16 20:04:00 CDT, Duration: 30 day, Stop date: 03/09/16 20:03:00 CDT Acetaminophen 325 2 tab, Route: No Longer The MG / Hydrocodone PO, Drug Form: Active 2015 [place] Bitartrate 5 MG TAB, Dosing Oral Tablet Weight 96.023, kg, Q4H, PRN Pain Score 4-6, Start date: 02/08/16 20:04:00 CDT, Duration: 30 day, Stop date: 03/09/16 20:03:00 CDTNotes: (Same as: [place] 325/5) Do not exceed 4gm/day of acetaminophen. Acetaminophen 650 mg, 2 tab, No Longer The Route: PO, Active 2015 [place] Drug form: TAB, Q4H, Dosing Weight 96.023, kg, PRN Pain 1-3/Temp > 100.4 F, Start date: 02/08/16 20:04:00 CDT, Duration: 30 day, Stop date: 03/09/16 20:03:00 CDTNotes: Do not exceed 4 gm/day. (Same as: Tylenol) D5W 1/2NS + KCL 1,000 mL, No Longer The 20mEq/L 1000ml Rate: 50 Active 2015 [place] (Premix) 1,000 mL ml/hr, Infuse over: 20 hr, Route: IV, Dosing Weight 96.023 kg, Total Volume: 1,000, Start date: 02/08/16 20:04:00 CDT, Duration: 30 day, Stop date: 03/09/16 20:03:00 CDTNotes: PREMIX IV - Do Not Alter WASTE: F/P - Sink; E - Municipal Trash Bin Ondansetron 4 mg, 2 mL, Inactive The Route: IVP, 2015 [place] Drug form: INJ, ONCE, Dosing Weight 96.023, kg, PRN Nausea & Vomiting, Start date: 02/08/16 9:59:00 CDTNotes: (Same as: Zofran) MEDICATION WASTE Product Size: 4 mg Product Wasted: ___ mg Promethazine 6.25 mg, 25 Inactive The mL, Route: 2015 [place] IVPB, Drug form: SOLN, ONCE, Dosing Weight 96.023, kg, PRN Nausea & Vomiting, Start date: 02/08/16 9:59:00 CDT Flumazenil 0.2 mg, 2 mL, Inactive The Route: IV2015 [place] Drug form: INJ, PRN, Dosing Weight 96.023, kg, PRN Benzodiazepine Reversal, Initial dose, Start date: 02/08/16 9:59:00 CDT, Duration: 30 day, Stop date: 03/09/16 9:58:00 CDTNotes: (Same as: Romazicon) Naloxone 0.4 mg, 1 mL, Inactive The Route: IVP, 2015 [place] Drug form: INJ, Q2MIN, Dosing Weight 96.023, kg, PRN Narcotic Reversal, Start date: 02/08/16 9:59:00 CDT, Duration: 8 doses or times, Stop date: Limited # of timesNotes: Same as Narcan Fentanyl 50 microgram, Inactive The 1 mL, Route: 2015 [place] IVP, Drug form: INJ, Q5Min, Dosing Weight 96.023, kg, PRN Pain Score 7-10, Start date: 02/08/16 9:59:00 CDT, Duration: 2 doses or times, Stop date: Limited # of timesNotes: (Same as: Sublimaze) Preservative free. Hydromorphone 1 mg, 1 mL, Inactive The Route: IVP, 2015 [place] Drug form: INJ, Q5Min, Dosing Weight 96.023, kg, PRN Pain Score 7-10, Start date: 02/08/16 9:59:00 CDT, Duration: 4 doses or times, Stop date: Limited # of timesNotes: Same as: Dilaudid Labetalol 10 mg, 2 mL, Inactive The Route: IVP, 2015 [place] Drug form: INJ, Q5Min, Dosing Weight 96.023, kg, PRN Elevated BP, Start date: 02/08/16 9:59:00 CDT, Duration: 5 doses or times, Stop date: Limited # of times ondansetron (ANES) Route: IV, Inactive The Drug form: 2015 [place] INJ, ONCE, Stop date: 02/08/16 9:40:00 CDT hydromorphone Route: IV, Inactive The (ANES) Drug form: 2015 [place] INJ, ONCE, Stop date: 02/08/16 9:15:00 CDT LR 1000 mL INJ Route: IV, Inactive The (ANES) Total Volume: 2015 [place] 1,000, Start date: 02/08/16 9:08:00 CDT, Stop date: 02/08/16 10:08:00 CDT heparin (ANES) Route: IV, Inactive The Drug form: 2015 [place] INJ, ONCE, Stop date: 02/08/16 8:55:00 CDT fentaNYL (ANES) Route: IV, Inactive The Drug form: 2015 [place] INJ, ONCE, Stop date: 02/08/16 8:40:00 CDT propofol (ANES) Route: IV, Inactive The Drug form: 2015 [place] INJ, ONCE, Stop date: 02/08/16 8:40:00 CDT lidocaine (ANES) Route: IV, Inactive The Drug form: [place] INJ, ONCE, Stop date: 02/08/16 8:40:00 CDT midazolam (ANES) Route: IV, Inactive The Drug form: [place] SOLN, ONCE, Stop date: 02/08/16 8:40:00 CDT rocuronium (ANES) Route: IV, Inactive The Drug form: 2015 [place] INJ, ONCE, Stop date: 02/08/16 8:40:00 CDT piperacillin-tazob IV, ONCE Inactive The actam (ANES) [place] famotidine (ANES) Route: IV, Inactive The Drug form: 2015 [place] INJ, ONCE, Stop date: 02/08/16 8:25:00 CDT [...] No Longer The Route: PO, Active 2015 [place] Drug form: TAB, Q4H, PRN Pain 1-3/Temp > 100.4 F, Start date: 02/07/16 10:35:00 CDT, Duration: 30 day, Stop date: 03/08/16 10:34:00 CDTNotes: (Same as: Roxicodone) oxyCODONE 10 mg 15 mg, Route: Inactive The extended release PO, Drug form: 2015 [place] ERTAB, Q6H, Start date: 02/05/16 18:00:00 CDT, Duration: 30 day, Stop date: 03/06/16 12:00:00 CDT Roxicodone 15 mg, 3 tab, No Longer The Route: PO, Active 2015 [place] Drug form: TAB, Q6Hnow, Start date: 02/05/16 15:21:00 CDT, Stop date: 03/06/16 11:00:00 CDTNotes: (Same as: Roxicodone) Dilaudid 2 mg, 1 mL, No Longer The Route: IV, Active 2015 [place] Drug form: INJ, Q2H, Dosing Weight 97.273, kg, PRN Pain Score 7-10, Start date: 02/05/16 15:04:00 CDT, Duration: 30 day, Stop date: 03/06/16 15:03:00 CDTNotes: Same as: Dilaudid sodium chloride 1,000 mL, No Longer The 0.9% 1000 ml INJ Rate: 50 Active 2015 [place] 1,000 mL ml/hr, Infuse over: 20 hr, Route: IV, Dosing Weight 97.273 kg, Total Volume: 1,000, Start date: 02/04/16 11:14:00 CDT, Stop date: 03/05/16 11:13:00 CDT vancomycin 750 mg, 150 No Longer The mL, Route: Active 2015 [place] IVPB, Drug form: INJ, [id number], Start date: 02/02/16 15:00:00 CDT, Duration: 30 day, Stop date: 03/03/16 3:00:00 CDTNotes: TIME CRITICAL MEDICATION Same as: Vancocin Infusion rate 2000 mg: infuse over 2.5 hours atorvastatin 40 mg, 1 tab, No Longer The Route: PO, Active [address] [place] [address] Drug form: TAB, Bedtime, Dosing Weight 97.273, kg, Start date: 02/01/16 21:00:00 CDT, Duration: 30 day, Stop date: 03/01/16 21:00:00 CDTNotes: (Same as: Lipitor) Vancomycin 1 ea, Route: Inactive The MISC, Dosing 2015 [place] Weight 97.273, kg, ONCALL, Start date: 02/01/16 15:00:00 CDT, Duration: 1 doses or times, Pharmacy to dose Acetaminophen 325 1 tab, Route: No Longer The MG / Hydrocodone PO, Drug Form: Active 2015 [place] Bitartrate 10 MG TAB, Dosing Oral Tablet [[place] Weight 97.273, 10/325] kg, Q6H, PRN Pain Score 4-6, Start date: 02/01/16 13:10:00 CDT, Duration: 30 day, Stop date: 03/02/16 13:09:00 CDTNotes: Do not exceed 4gm/day of acetaminophen. (Same as: [place] 325/10) Tylenol 650 mg, 2 tab, No Longer The Route: PO, Active 2015 [place] Drug form: TAB, Q6H, Dosing Weight 97.273, kg, PRN Pain Score 1-3, Start date: 02/01/16 13:02:00 CDT, Duration: 30 day, Stop date: 03/02/16 13:01:00 CDTNotes: Do not exceed 4 gm/day. (Same as: Tylenol) Vancomycin 1,000 mg, No Longer The Route: IVPB, Active 2015 [place] [id number], Dosing Weight 97.273, kg, Start date: 02/01/16 13:00:00 CDT, Stop date: 03/02/16 1:00:00 CDTNotes: TIME CRITICAL MEDICATION (Same As: Vancocin) Infusion rate 2001 mg: infuse over 2.5 hours MEDICATION WASTE Product Size: 1000 mg Product Wasted: ___ mg Zosyn 3.375 gm, No Longer The Route: IVPB, Active 2015 [place] [id number], Dosing Weight 97.273, kg, CrCl Notes: (Same as: Zosyn) Dosing based on Piperacillin component MEDICATION WASTE Product Size: 3375 mg Product Wasted: ___ mg Lisinopril 5 mg, 1 tab, No Longer The Route: PO, Active 2015 [place] Drug form: TAB, Daily, Dosing Weight 97.273, [...] Tartrate 100 MG Route: PO, Active 2015 [place] Extended Release Drug form: Tablet [Toprol] ERTAB, Daily, Start date: 02/01/16 9:00:00 CDT, Duration: 30 day, Stop date: 03/01/16 9:00:00 CDTNotes: (Same as: Toprol XL) May split tab, but do not crush. Alprazolam 2 MG 2 mg, 2 tab, No Longer The Oral Tablet Route: PO, Active 2015 [place] Drug form: TAB, BID, Dosing Weight 97.273, kg, PRN Anxiety, Start date: 02/01/16 8:23:00 CDT, Duration: 30 day, Stop date: 03/02/16 8:22:00 CDTNotes: With food or milk (Same as: Xanax) Albuterol 0.833 3 ml, Route: No Longer The MG/ML / NEB, Drug Active 2015 [place] Ipratropium Form: SOLN, [place] 0.167 Dosing Weight MG/ML Inhalant 97.273, kg, Solution PRN, PRN Respiratory Protocol, Start date: 02/01/16 8:22:00 CDT, Duration: 30 day, Stop date: 03/02/16 8:21:00 CDTNotes: (Same as: Duoneb) Zofran 4 mg, 2 mL, No Longer The Route: IVP, Active 2015 [place] Drug form: INJ, Q6H, Dosing Weight 97.273, kg, PRN Nausea, Start date: 02/01/16 1:24:00 CDT, Duration: 30 day, Stop date: 03/02/16 1:23:00 CDTNotes: (Same as: Zofran) MEDICATION WASTE Product Size: 4 mg Product Wasted: ___ mg Dilaudid 2 mg, 2 mL, No Longer The Route: IVP, Active 2015 [place] Drug form: INJ, Q4H, Dosing Weight 97.273, kg, PRN Pain Score 7-10, Start date: 02/01/16 1:23:00 CDT, Duration: 30 day, Stop date: 03/02/16 1:22:00 CDTNotes: Same as: Dilaudid Acetaminophen 300 1 tab, PO, No Longer The MG / Codeine BID, PRN pain, Active 2015 [place] Phosphate 30 MG # 28 tab, 0 Oral Tablet Refill(s) lisinopril 10 mg 10 mg=1 tab, Active The oral tablet PO, Daily, # 2015 [place] 30 tab, 0 Refill(s) metoprolol 100 mg=1 tab, Active The tartrate 100 mg PO, BID, # 60 2015 [place] oral tablet tab, 0 Refill(s) Centrum Adults 1 tab, PO, Active The oral tablet Daily, 0 2015 [place] Refill(s) doxazosin 1 mg 1 mg=1 tab, Active The oral tablet PO, Daily, # 2015 [place] 30 tab, 0 Refill(s) atorvastatin 40 mg 40 mg=1 tab, Active The oral tablet PO, Bedtime, # 2015 [place] 30 tab, 0 Refill(s) Anoro Ellipta 62.5 1 puff, Active The mcg-25 mcg INHALER, 2015 [place] inhalation powder Daily, # 1 ea, 3 Refill(s) Alprazolam 2 MG 2 mg=1 tab, Active The Oral Tablet PO, BID, PRN 2015 [place] Anxiety, # 20 tab, 0 Refill(s) Furosemide 20 MG 20 mg=1 tab, Active The Oral Tablet PO, Daily, # 2015 [place] 30 tab, 0 Refill(s) cilostazol 100 mg 100 mg=1 tab, Active The oral tablet PO, BID, # 60 2015 [place] tab, 0 Refill(s) Acetaminophen 650 mg, Route: Inactive The PO, Drug form: 2015 [place] TAB, ONCE, Dosing Weight 95, kg, Priority: STAT, Start date: 01/31/16 22:28:00 CDT, Stop date: 01/31/16 22:28:00 CDT Piperacillin / 3.375 gm, Inactive The tazobactam Route: IVPB, 2015 [place] ONCE, Dosing Weight 95, kg, Priority: STAT, Start date: 01/31/16 17:57:00 CDT, Stop date: 01/31/16 17:57:00 CDTNotes: (Same as: Zosyn) Dosing based on Piperacillin component MEDICATION WASTE Product Size: 3375 mg Product Wasted: ___ mg Vancomycin 1,000 mg, Inactive The Route: IVPB, 2015 [place] ONCE, Dosing Weight 95, kg, Priority: STAT, Start date: 01/31/16 17:57:00 CDT, Stop date: 01/31/16 17:57:00 CDT, TIME CRITICAL MEDICATIONNote s: TIME CRITICAL MEDICATION (Same As: Vancocin) Infusion rate 2001 mg: infuse over 2.5 hours MEDICATION WASTE Product Size: 1000 mg Product Wasted: ___ mg Sodium Chloride 1,000 mL, Inactive The 0.154 MEQ/ML 2,000 ml/hr, 2015 [place] Injectable Infuse Over: Solution 30 minutes, Route: IV, 1,000, Drug form: INJ, ONCE, Priority: STAT, Dosing Weight 95 kg, Start date: 01/31/16 17:04:00 CDT, Duration: 1 doses or times, Stop date: 01/31/16 17:04:00 CDT Acetaminophen 325 1 tab, Route: Inactive The MG / Hydrocodone PO, Drug Form: 2015 [place] Bitartrate 10 MG TAB, Dosing Oral Tablet [[place] Weight 95, kg, 10/325] ONCE, STAT, Start date: 01/31/16 16:57:00 CDT, Stop date: 01/31/16 16:57:00 CDTNotes: Do not exceed 4gm/day of acetaminophen. (Same as: [place] 325/10) Amlodipine 10 mg, PO, Active The Daily, 0 2015 [place] Refill(s) gabapentin 300 mg, PO, Active The BID, 0 2015 [place] Refill(s) atorvastatin 20 mg, 1 tab, Inactive The Route: PO, 2014 [place] Drug form: TAB, Bedtime, Dosing Weight 98.267, [...] 1 tab, Inactive The Route: PO, 2014 [place] Drug form: TAB, Daily, Start date: 02/16/15 9:00:00, Duration: 30 day, Stop date: 03/17/15 9:00:00Notes: (Same as: Prinivil, Zestril) metoprolol 25 mg, 1 tab, Inactive The tartrate Route: PO, 2014 [place] Drug form: TAB, Q12H, Dosing Weight 98.267, kg, Start date: 02/16/15 9:00:00, Duration: 30 day, Stop date: 03/17/15 21:00:00Notes: (Same as: Lopressor) Microzide 12.5 mg, 1 Inactive The tab, Route: 2014 [place] PO, Drug form: TAB, Daily, Start date: 02/16/15 9:00:00, Duration: 30 day, Stop date: 03/17/15 9:00:00Notes: (Same as: Hydrodiuril). Give with food. pneumococcal 0.5 mL, Route: Inactive The capsular IM, Drug Form: 2014 [place] polysaccharide INJ, Daily, type 1 vaccine / [...] The Oral Tablet tab, Route: Active 2014 [place] [Xanax] PO, Drug form: TAB, BID, Dosing Weight 98.267, kg, PRN Anxiety, Start date: 02/15/15 23:39:00, Duration: 30 day, Stop date: 03/17/15 23:38:00Notes: With food or milk (Same as: Xanax) Acetaminophen 325 1 tab, Route: No Longer The MG / Hydrocodone PO, Drug Form: Active 2014 [place] Bitartrate 5 MG TAB, Dosing Oral Tablet [[place] Weight 98.267, 5/325] kg, Q12H, PRN Pain 1-3/Temp > 100.4 F, Start date: 02/15/15 23:39:00, Duration: 30 day, Stop date: 03/17/15 23:38:00Notes: (Same as: [place] 325/5) Do not exceed 4gm/day of acetaminophen. Tessalon Perles 200 mg, 2 cap, No Longer The Route: PO, Active 2014 [place] Drug form: CAP, TID, Dosing Weight 13.636, kg, Start date: 02/15/15 20:00:00, Duration: 30 day, Stop date: 03/17/15 17:00:00Notes: (Same As: [place]on Perles) "Do Not Crush" Acetaminophen 325 1 tab, PO, Active The MG / Hydrocodone Q12H, PRN 2014 [place] Bitartrate 5 MG Pain, # 30 Oral Tablet [[place] tab, 0 5/325] Refill(s) Alprazolam 0.25 MG 0.25 mg=1 tab, Active The Oral Tablet PO, BID, PRN 2014 [place] [Xanax] Anxiety, Stress, # 20 tab, 0 Refill(s) metoprolol 25 mg, PO, Active The tartrate BID, 0 2014 [place] Refill(s) NS 1,000 mL 1,000 mL, No Longer The Rate: 75 Active 2014 [place] ml/hr, Infuse over: 13.3 hr, Route: IV, Dosing Weight 13.636 kg, Total Volume: 1,000, Start date: 02/15/15 18:04:00, Duration: 30 day, Stop date: 03/17/15 18:03:00 Xopenex 0.63 mg, 3 mL, No Longer The Route: NEB, Active 2014 [place] Drug form: SOLN, PRN, Dosing Weight 13.636, kg, PRN Respiratory Protocol, Start date: 02/15/15 18:03:00, Duration: 30 day, Stop date: 03/17/15 18:02:00Notes: SEE RT DOCUMENTATION (Same as:Xopenex) Non-Formulary Acetaminophen 325 2 tab, Route: No Longer The MG / Hydrocodone PO, Drug Form: Active 2014 [place] Bitartrate 10 MG TAB, Dosing Oral Tablet [[place] Weight 13.636, 10/325] kg, Q4H, PRN Pain Score 4-6, Start date: 02/15/15 18:03:00, Duration: 30 day, Stop date: 03/17/15 18:02:00Notes: Do not exceed 4gm/day of acetaminophen. (Same as: [place] 325/10) Albuterol 0.833 3 ml, Route: No Longer The MG/ML / NEB, Drug Active 2014 [place] Ipratropium Form: SOLN, [place] 0.167 Dosing Weight MG/ML Inhalant 13.636, kg, Solution [DuoNeb] PRN, PRN Respiratory Protocol, Start date: 02/15/15 15:51:00, Duration: 30 day, Stop date: 03/17/15 15:50:00Notes: (Same as: Duoneb) Aspirin 324 mg, 4 tab, Inactive The Route: CHEW, 2014 [place] Drug form: CHEWTAB, ONCE, Dosing Weight 13.636, kg, Priority: STAT, Start date: 02/15/15 15:00:00, Stop date: 02/15/15 15:00:00Notes: Take with food. tramadol 100 mg=2 tab, Active The hydrochloride 50 PO, Q6H, PRN 2014 [place] MG Oral Tablet pain, X 3 day, [Ultram] # 20 tab, 0 Refill(s) Tylenol 650 mg, 2 tab, Inactive The Route: PO, 2014 [place] Drug form: TAB, ONCE, Dosing Weight 108.182, kg, Pediatric Dosing, Priority: STAT, Start date: 02/09/15 15:47:00, Stop date: 02/09/15 15:47:00Notes: Do not exceed 4 gm/day. (Same as: Tylenol) Sodium Chloride 1,000 mL, Inactive The 0.154 MEQ/ML 1,000 ml/hr, 2014 [place] Injectable Infuse Over: 1 Solution hr, Route: IV, 1,000, Drug form: INJ, ONCE, Priority: STAT, Dosing Weight 104.545 kg, Start date: 01/23/15 14:39:00, Duration: 1 doses or times, Stop date: 01/23/15 14:39:00 Saline Flush 0.9% 10 mL, Route: Inactive The IVP, Drug 2014 [place] Form: INJ, Dosing Weight 104.545, kg, PRN, PRN Line Flush, Start date: 01/23/15 14:39:00, Duration: 30 day, Stop date: 02/22/15 14:38:00Notes: preservative free. Allergies, Adverse Reactions, Alerts Substance Category Reaction Severity Reaction Status Date Comments Source type Reported morphine Assertion Drug Active The allergy [place] Immunizations Immunization Date Site Status Last Updated Comments Source Given pneumococcal Right completed Ashok The 23-valent 5 deltoid [place] vaccine Results Order Name Results Value Reference Date Interpretation Comments Source Range BLOOD BANK RBC product Product available 04/04 The RESULTS /2015 [place] (04/04/16 11:22 AM) BLOOD BANK ABO/Rh B POS 04/04 The RESULTS [place] BLOOD BANK Antibody Negative 04/04 The RESULTS [facility] [place] (04/04/16 11:20 AM) URINE AND UA <=1.0 0.1 - 1.0 03/14 The STOOL Urobilinogen mg/dL /2016 [place] URINE AND UA RBC 1 /HPF 0 [...] mMol/L 0.5 - 2.2 03/14 The Lvl [place] CHEM PANEL Procalcitoni <0.05 0.00 - 03/14 The n Lvl ng/mL 0. [place] BLOOD BANK Antibody Negative 03/14 The RESULTS [place] (03/13/16 9:07 PM) BLOOD BANK ABO/Rh B POS 03/14 The RESULTS [place] CHEM PANEL eGFR 43 03/14 Result Comment: [...] is not recommended in the following populations: [place] [address] Individuals with unstable creatinine concentrations, including patients [...] 21 mg/dL 7 - 22 03/14 MH [place] CHEM PANEL Creatinine 1.79 mg/dL 0.50 - 03/14 MH The Lvl 1.40 [place] CHEM PANEL Alk Phos 95 unit/L 39 - 136 03/14 MH [place] CHEM PANEL Bili Total 0.3 mg/dL 0.2 - 1.3 03/14 MH [place] CHEM PANEL AST 39 unit/L 0 - 37 03/14 MH The [place] CHEM PANEL ALT 59 unit/L 0 - 65 03/14 MH The [place] CHEM PANEL Sodium Lvl 139 meq/L 135 - 145 03/14 MH The [place] CHEM PANEL Total 7.8 g/dL 6.4 - 8.4 03/14 MH The Protein [place] CHEM PANEL Albumin Lvl 2.5 g/dL 3.5 - 5.0 03/14 MH The [place] CHEM PANEL Glucose Lvl 120 mg/dL 70 - 99 03/14 MH The [place] CHEM PANEL Chloride Lvl 106 meq/L 95 - 109 03/14 MH The [place] CHEM PANEL CO2 21 meq/L 24 - 32 03/14 MH [place] CHEM PANEL Calcium Lvl 10.1 mg/dL 8.5 - 10.5 03/14 MH The [place] CHEM PANEL Potassium 3.3 meq/L 3.5 - 5.1 03/14 MH The Lvl [place] CHEM PANEL A/G Ratio 0.5 0.7 - 1.6 03/14 MH The [place] CHEM PANEL Globulin 5.3 g/dL 2.7 - 4.2 03/14 The [place] CHEM PANEL B/C Ratio 12 6 - 25 03/14 The [place] CHEM PANEL AGAP 15.3 meq/L 10.0 - 03/14 MH The 20.0 [place] HEMATOLOGY MPV 7.4 fL 7.4 - 10.4 03/14 MH The [place] HEMATOLOGY WBC 7.3 K/CMM 3.7 - 10.4 03/14 The [place] HEMATOLOGY MCV 88.5 fL 80.0 - 03/14 MH The 94.0 [place] HEMATOLOGY RBC 3.00 M/CMM 4.70 - 03/14 MH The 6. [place] HEMATOLOGY Hct 26.5 % 42.0 - 03/14 MH The 54.0 [place] HEMATOLOGY Hgb 8.8 g/dL 14.0 - 03/14 MH The 18.0 [place] HEMATOLOGY MCHC 33.1 g/dL 32.0 - 03/14 MH The 36.0 [place] HEMATOLOGY MCH 29.3 pg 27.0 - 03/14 MH The 31.0 [place] HEMATOLOGY Platelet 241 K/CMM 133 - 450 03/14 MH The [place] HEMATOLOGY RDW 15.5 % 11.5 - 03/14 MH The 14.5 [place] HEMATOLOGY Basophils # 0.1 K/CMM 0.0 - 0.2 03/14 MH The [place] HEMATOLOGY Lymphocytes 14.3 % 20.0 - 03/14 MH The 40.0 [place] HEMATOLOGY Eosinophils 1.9 % 0.0 - 4.0 03/14 MH The [place] HEMATOLOGY Segs 77.1 % 45.0 - 03/14 MH The 75.0 [place] HEMATOLOGY Monocytes 5.3 % 2.0 - 12.0 03/14 MH The [place] HEMATOLOGY Basophils 1.4 % 0.0 - 1.0 03/14 MH The [place] HEMATOLOGY Segs-Bands # 5.6 K/CMM 1.5 - 8.1 03/14 MH The [place] HEMATOLOGY Lymphocytes 1.0 K/CMM 1.0 - 5.5 03/14 MH The # [place] HEMATOLOGY Monocytes # 0.4 K/CMM 0.0 - 0.8 03/14 [place] HEMATOLOGY Eosinophils 0.1 K/CMM 0.0 - 0.5 03/14 The [place] Ext Lower Ext Lower Study: Ext Lower Venous Doppler Bilat US 03/13/2016 11: 06 PM CDT 03/13 - [facility] Venous Venous /2015 [facility] Doppler Doppler Ordering Physician: Blanche Diaz MD [...] no evidence for deep venous thrombosis. SL: [id number] Chest Chest 1view Study: Chest 1view DX 03/13/2016 11:18 PM CDT 03/13 [facility] 1view DX DX [facility] Ordering Physician: Blanche Diaz MD Clinical Indication: [...] no pneumothorax. No acute cardiopulmonary disease. SL: [id number] ANEMIA UIBC 174 ug/dl 110 - 370 02/15 The [place] ANEMIA TIBC 196 ug/dl 228 - 428 02/15 The [place] ANEMIA Iron 22 ug/dl 45 - 160 02/15 The [place] ANEMIA % Satur Fe 11 % 12 - 57 02/15 The [place] Chest Chest 1view Clinical Indication: Fever; 02/14 - The 1view DX DX /2015 - [place] Comparison: 02/15/2015 Read by: Akil Castaneda MD [...] radiographic evidence of acute cardiopulmonary disease. SL: [id number] CHEM PANEL eGFR 57 02/14 Result Comment: [...] is not recommended in the following populations: [place] 3m2 Individuals with unstable creatinine concentrations, including [...] 14.7 meq/L 10.0 - 02/14 The . [place] CHEM PANEL Calcium Lvl 8.7 mg/dL 8.5 - 10.5 02/14 [place] CHEM PANEL CO2 24 meq/L 24 - 32 02/14 [place] CHEM PANEL Chloride Lvl 99 meq/L 95 - 109 02/14 [place] CHEM PANEL Potassium 3.7 meq/L 3.5 - 5.1 02/14 The Lvl /2015 [place] CHEM PANEL BUN 16 mg/dL 7 - 22 02/14 The [place] CHEM PANEL Glucose Lvl 128 mg/dL 70 - 99 02/14 The [place] CHEM PANEL Sodium Lvl 134 meq/L 135 - 145 02/14 The [place] CHEM PANEL Creatinine 1.42 mg/dL 0.50 - 02/14 The Lvl 1.40 [place] CHEM PANEL eGFR 51 02/13 Result Comment: [...] is not recommended in the following populations: [address] Individuals with unstable creatinine concentrations, including [...] mg/dL 0.2 - 1.3 02/13 Result Comment: [place] reviewed all results 02/14/2016 06:35 [facility] CHEM PANEL ALT 25 unit/L 0 - 65 02/13 The [place] CHEM PANEL AST 15 unit/L 0 - 37 02/13 The [place] CHEM PANEL Alk Phos 62 unit/L 39 - 136 02/13 The [place] CHEM PANEL Globulin 4.8 g/dL 2.7 - 4.2 02/13 The [place] CHEM PANEL A/G Ratio 0.5 0.7 - 1.6 02/13 The [place] CHEM PANEL Calcium Lvl 9.0 mg/dL 8.5 - 10.5 02/13 The [place] CHEM PANEL Glucose Lvl 109 mg/dL 70 - 99 02/13 The [place] CHEM PANEL CO2 24 meq/L 24 - 32 02/13 The [place] CHEM PANEL Chloride Lvl 101 meq/L 95 - 109 02/13 The [place] CHEM PANEL BUN 17 mg/dL 7 - 22 02/13 The [place] CHEM PANEL Potassium 4.1 meq/L 3.5 - 5.1 02/13 The Lvl /2015 [place] CHEM PANEL AGAP 14.1 meq/L 10.0 - 02/13 The 20.0 [place] CHEM PANEL Albumin Lvl 2.3 g/dL 3.5 - 5.0 02/13 The [place] CHEM PANEL Total 7.1 g/dL 6.4 - 8.4 02/13 The Protein /2015 [place] CHEM PANEL Creatinine 1.55 mg/dL 0.50 - 02/13 The Lvl 1.40 [place] CHEM PANEL Sodium Lvl 135 meq/L 135 - 145 02/13 The [place] CHEM PANEL B/C Ratio 11 6 - 25 02/13 The [place] HEMATOLOGY MPV 7.7 fL 7.4 - 10.4 02/13 The [place] HEMATOLOGY Hct 25.4 % 42.0 - 02/13 The 54.0 [place] HEMATOLOGY MCH 32.7 pg 27.0 - 02/13 The 31.0 [place] HEMATOLOGY MCV 96.6 fL 80.0 - 02/13 The 94.0 [place] HEMATOLOGY Platelet 296 K/CMM 133 - 450 02/13 The [place] HEMATOLOGY RDW 14.7 % 11.5 - 02/13 The 14.5 [place] HEMATOLOGY MCHC 33.8 g/dL 32.0 - 02/13 The 36.0 [place] HEMATOLOGY WBC 8.4 K/CMM 3.7 - 10.4 02/13 The [place] HEMATOLOGY Hgb 8.6 g/dL 14.0 - 02/13 The 18.0 [place] HEMATOLOGY RBC 2.63 M/CMM 4.70 - 02/13 The 6.10 [place] HEMATOLOGY Lymphocytes 1.5 K/CMM 1.0 - 5.5 02/13 The # /2015 [place] HEMATOLOGY Eosinophils 0.2 K/CMM 0.0 - 0.5 02/13 The # [place] HEMATOLOGY Monocytes # 0.8 K/CMM 0.0 - 0.8 02/13 [place] HEMATOLOGY Basophils # 0.1 K/CMM 0.0 - 0.2 02/13 [place] HEMATOLOGY Monocytes 9.9 % 2.0 - 12.0 02/13 The [place] HEMATOLOGY Lymphocytes 17.2 % 20.0 - 02/13 The 40.0 [place] HEMATOLOGY Segs 69.8 % 45.0 - 02/13 The 75.0 [place] HEMATOLOGY Eosinophils 2.2 % 0.0 - 4.0 02/13 The [place] HEMATOLOGY Segs-Bands # 5.9 K/CMM 1.5 - 8.1 02/13 [place] HEMATOLOGY Basophils 0.9 % 0.0 - 1.0 02/13 [place] TOXICOLOGY Vanco Tr 14.8 ug/ml 02/13 [place] TOXICOLOGY Vanco Tr TND TBD 02/13 [place] Foot Foot series Clinical Indication: Pain and swelling. Post surgery. The series DX DX - [place] Comparison: 01/31/2016. Read by: Samson Ramirez MD [...] post transmetatarsal amputation, as noted above. SL: [id number] CHEM PANEL Total 6.3 g/dL 6.4 - 8.4 02/12 The Protein [place] CHEM PANEL A/G Ratio 0.7 0.7 - 1.6 02/12 The [place] CHEM PANEL B/C Ratio 12 6 - 25 02/12 [place] CHEM PANEL Globulin 3.8 g/dL 2.7 - 4.2 02/12 MH The [place] CHEM PANEL AST 12 unit/L 0 - 37 02/12 MH The [place] CHEM PANEL Alk Phos 61 unit/L 39 - 136 02/12 MH The [place] CHEM PANEL Albumin Lvl 2.5 g/dL 3.5 - 5.0 02/12 MH The [place] CHEM PANEL ALT 26 unit/L 0 - 65 02/12 MH The [place] CHEM PANEL Bili Total 0.4 mg/dL 0.2 - 1.3 02/12 MH The [place] CHEM PANEL AGAP 13.5 meq/L 10.0 - 02/12 MH The 20.0 [place] CHEM PANEL eGFR 57 02/12 Result Comment: [...] is not recommended in the following populations: [address] Individuals with unstable creatinine concentrations, including [...] 27 meq/L 24 - 32 02/12 MH [place] CHEM PANEL Calcium Lvl 8.7 mg/dL 8.5 - 10.5 02/12 MH The [place] CHEM PANEL Chloride Lvl 100 meq/L 95 - 109 02/12 MH The [place] CHEM PANEL Potassium 4.5 meq/L 3.5 - 5.1 02/12 MH The [place] CHEM PANEL Creatinine 1.42 mg/dL 0.50 - 02/12 MH The Lvl 1.40 [place] CHEM PANEL Sodium Lvl 136 meq/L 135 - 145 02/12 MH The [place] CHEM PANEL Glucose Lvl 105 mg/dL 70 - 99 02/12 MH The [place] CHEM PANEL BUN 17 mg/dL 7 - 22 02/12 The [place] TOXICOLOGY Vanco Tr TND TBD 02/12 The [place] TOXICOLOGY Vanco Tr 9.3 ug/ml 02/12 The [place] CHEM PANEL Phosphorus 4.9 mg/dL 2.5 - 4.5 02/11 The [place] CHEM PANEL Magnesium 1.8 mg/dL 1.8 - 2.4 02/11 The Lvl [place] HEMATOLOGY Segs 70.5 % 45.0 - 02/11 MH The 75.0 [place] HEMATOLOGY Lymphocytes 18.0 % 20.0 - 02/11 MH The 40.0 [place] HEMATOLOGY Monocytes 9.7 % 2.0 - 12.0 02/11 The [place] HEMATOLOGY Segs-Bands # 6.4 K/CMM 1.5 - 8.1 02/11 The [place] HEMATOLOGY Lymphocytes 1.6 K/CMM 1.0 - 5.5 02/11 The # [place] HEMATOLOGY Basophils 0.5 % 0.0 - 1.0 02/11 MH The [place] HEMATOLOGY Eosinophils 1.3 % 0.0 - 4.0 02/11 MH The [place] HEMATOLOGY Monocytes # 0.9 K/CMM 0.0 - 0.8 02/11 The [place] HEMATOLOGY Eosinophils 0.1 K/CMM 0.0 - 0.5 02/11 The # [place] HEMATOLOGY Platelet 307 K/CMM 133 - 450 02/11 The [place] HEMATOLOGY MPV 6.9 fL 7.4 - 10.4 02/11 The [place] HEMATOLOGY MCHC 33.9 g/dL 32.0 - 02/11 The 36.0 [place] HEMATOLOGY RDW 15.1 % 11.5 - 02/11 MH The 14.5 [place] HEMATOLOGY RBC 2.69 M/CMM 4.70 - 02/11 MH The 6.10 [place] HEMATOLOGY MCV 96.5 fL 80.0 - 02/11 MH The 94.0 [place] HEMATOLOGY WBC 9.1 K/CMM 3.7 - 10.4 02/11 The [place] HEMATOLOGY Hgb 8.8 g/dL 14.0 - 02/11 MH The 18.0 [place] HEMATOLOGY Hct 26.0 % 42.0 - 02/11 MH The 54.0 [place] HEMATOLOGY MCH 32.7 pg 27.0 - 02/11 MH The 31.0 [place] HEMATOLOGY Segs-Bands # 7.7 K/CMM 1.5 - 8.1 02/11 The [place] HEMATOLOGY Basophils 1.5 % 0.0 - 1.0 02/11 MH The [place] HEMATOLOGY Basophils # 0.2 K/CMM 0.0 - 0.2 02/11 MH The [place] HEMATOLOGY Eosinophils 0.2 K/CMM 0.0 - 0.5 02/11 MH The # /2015 [place] HEMATOLOGY Monocytes # 1.2 K/CMM 0.0 - 0.8 02/11 MH The [place] HEMATOLOGY Segs 69.4 % 45.0 - 02/11 MH The 75.0 [place] HEMATOLOGY Monocytes 10.5 % 2.0 - 12.0 02/11 The [place] HEMATOLOGY Eosinophils 1.6 % 0.0 - 4.0 02/11 MH The [place] HEMATOLOGY Lymphocytes 1.9 K/CMM 1.0 - 5.5 02/11 MH The # /2015 [place] HEMATOLOGY Lymphocytes 17.0 % 20.0 - 02/11 MH The 40.0 [place] HEMATOLOGY Hct 28.9 % 42.0 - 02/11 MH The 54.0 [place] HEMATOLOGY MCHC 33.6 g/dL 32.0 - 02/11 The 36.0 [place] HEMATOLOGY RDW 14.6 % 11.5 - 02/11 The 14.5 [place] HEMATOLOGY MCV 96.6 fL 80.0 - 02/11 MH The 94.0 [place] HEMATOLOGY MCH 32.4 pg 27.0 - 02/11 MH The 31.0 [facility] HEMATOLOGY Hgb 9.7 g/dL 14.0 - 02/11 MH The 18.0 [facility] HEMATOLOGY WBC 11.1 K/CMM 3.7 - 10.4 02/11 MH The [facility] HEMATOLOG[facility] RBC 2.99 M/CMM 4.70 - 02/11 The 6.10 [facility] HEMATOLOGY Platelet 360 K/CMM 133 - 450 02/11 The [facility] HEMATOLOGY MPV 7.4 fL 7.4 - 10.4 02/11 The [facility] TOXICOLOGY Vanco Tr 10.9 ug/ml 02/10 The [facility] TOXICOLOGY [place] Tr TND TBD 02/10 The [facility] HEMATOLOGY Basophils # 0.1 K/CMM 0.0 - 0.2 02/09 The [facility] TOXICOLOGY Vanco Lvl 14.1 ug/ml 02/09 The [facility] HEMATOLOGY Sed Rate null 0 - 15 02/08 The [facility] BLOOD BANK Antibody Negative 02/07 The RESULTS Scrn /2015 [place] (02/08/16 5:38 AM) BLOOD BANK ABO/Rh B POS 02/07 The RESULTS [facility] CHEM PANEL Procalcitoni 0.11 ng/mL 0.00 - 02/07 The n Lvl 0. [facility] URINE AND UA Sq Epi None Seen 02/04 The STOOL [place] URINE AND UA <=1.0 0.1 - 1.0 02/04 The STOOL Urobilinogen mg/dL [facility] URINE AND UA Leuk Est Negative Negative 02/04 The STOOL /2015 [place] (02/05/16 12:36 AM) URINE AND UA Bacteria Occasional None Seen 02/04 The STOOL /HPF /HPF [facility] URINE AND UA WBC 1 /HPF 0 - 5 02/04 The STOOL [place] URINE AND UA Blood Negative Negative 02/04 The STOOL /2015 [place] (02/05/16 12:36 AM) URINE AND UA Bili Negative Negative 02/04 The STOOL [place] *NA* (02/05/16 12:36 AM) URINE AND UA Nitrite Negative Negative 02/04 The STOOL /2015 [place] (02/05/16 12:36 AM) URINE AND UA Glucose Negative Negative 02/04 The STOOL mg/dL mg/dL [place] URINE AND UA Protein Negative Negative 02/04 The STOOL mg/dL mg/dL [facility] URINE AND UA Turbidity Clear Clear 02/04 The STOOL /2015 [place] (02/05/16 12:36 AM) URINE AND UA pH 6.0 5.0 - 8.0 02/04 The STOOL /2015 [place] URINE AND UA Color Light Yellow Yellow 02/04 The STOOL [place] *NA* (02/05/16 12:36 AM) URINE AND UA Ketones Negative Negative 02/04 The STOOL mg/dL mg/dL /2015[facility] URINE AND UA Spec Grav 1.006 <=1.030 02/04 The STOOL [place] Abdominal Abdominal Clinical Indication: Gangrene; right foot gangrene. The Aorta with Aorta with /2015 - [facility] runoff CTA runoff CTA Comparison: None Read [...] 5th MCP is concerning for osteomyelitis. SL: [id number] URINE AND UA Sq Epi None Seen 01/31 The [facility] [place] URINE AND UA <=1.0 0.1 - 1.0 01/31 The STOOL Urobilinogen mg/dL [place] URINE AND UA Blood Negative Negative 01/31 The [place] (02/01/16 4:31 PM) URINE AND UA Nitrite Negative Negative 01/31 The [place] (02/01/16 4:31 PM) URINE AND UA Leuk Est Negative Negative 01/31 The [facility] [place] (02/01/16 4:31 PM) URINE AND UA WBC 1 /HPF 0 - 5 01/31 The [facility] [place] URINE AND UA Hyal Cast 3 /LPF 0 - 2 01/31 The [facility] [place] URINE AND UA pH 5.5 5.0 - 8.0 01/31 The [facility] [place] URINE AND UA Glucose Negative Negative 01/31 The STOOL mg/dL mg/dL [place] URINE AND UA Ketones Negative Negative 01/31 The STOOL mg/dL mg/dL /2015 [place] URINE AND UA Bili Negative Negative 01/31 The STOOL [place] *NA* (02/01/16 4:31 PM) URINE AND UA Protein Negative Negative 01/31 The STOOL mg/dL mg/dL /2015 [place] URINE AND UA Color Yellow Yellow 01/31 The STOOL [place] *NA* (02/01/16 4:31 PM) URINE AND UA Turbidity Clear Clear 01/31 The STOOL /2015 [place] (02/01/16 4:31 PM) URINE AND UA Spec Grav 1.007 <=1.030 01/31 The STOOL [place] URINE CHEM U Chloride 41 meq/L 01/31 The [place] URINE CHEM U Creatinine 70.40 01/31 The mg/dL [place] URINE CHEM U Sodium 38 meq/L 01/31 The [place] Retroperit Retroperiton Clinical Indication: Renal insufficiency 01/31 - The [facility] US US Comparison: None Read by: Ky [...] with hematuria or urinary tract infection. SL: [id number] CARDIAC Troponin-I null 0.00 - 01/30 The ENZYMES 0.40 [place] CHEM PANEL Procalcitoni 0.13 ng/mL 0.00 - 01/30 The n Lvl 0.10 [place] CHEM PANEL Lactic Acid 1.7 mMol/L 0.5 - 2.2 01/30 The Lvl /2015 [place] CHEM PANEL Bili Total 0.4 mg/dL 0.2 - 1.3 01/30 The [place] CHEM PANEL Total 7.7 g/dL 6.4 - 8.4 01/30 The Protein [place] CHEM PANEL AST 19 unit/L 0 - 37 01/30 The [place] CHEM PANEL ALT 23 unit/L 0 - 65 01/30 The [place] CHEM PANEL Alk Phos 58 unit/L 39 - 136 01/30 The [place] CHEM PANEL Albumin Lvl 2.8 g/dL 3.5 - 5.0 01/30 The [place] CHEM PANEL A/G Ratio 0.6 0.7 - 1.6 01/30 The [place] CHEM PANEL Globulin 4.9 g/dL 2.7 - 4.2 01/30 The [place] CHEM PANEL B/C Ratio 15 6 - 25 01/30 The [place] HEMATOLOGY PTT 42.4 s 22.9 - 01/30 The 35.8 [place] HEMATOLOGY PT 14.6 s 12.0 - 01/30 The 14.7 [place] HEMATOLOGY INR 1.11 0.85 - 01/30 The 1.17 [place] Ext Lower Ext Lower Clinical Indication: Right leg claudication and leg ulcer. 01/30 - The Arterial Arterial /2015 [place] Doppler Doppler [facility] [place] Read by: Samson Ramirez MD Dictated Date/time: 01/31/16 20:20 Electronically Signed by: Samson Ramirez MD 01/31/16 20:25 FINAL REPORT TECHNIQUE: Sonographic evaluation of the right lower extremity arteries was performed with grayscale and color Doppler imaging with standard technique. FINDINGS: RIGHT: HEMATOLOGY TECHNICIAN: Monophasic waveforms with severely decreased peak systolic velocities. SFA: Monophasic waveforms. Spectral broadening. Mildly decreased peak systolic velocities. This may be related to collateral flow. POP: Monophasic waveforms. Spectral broadening with moderately decreased peak systolic velocities. SURGEON'S ASSISTANT: Monophasic waveforms. Spectral broadening with severely decreased [...] or conventional angiography for complete assessment. SL: [id number] Foot Foot series Clinical Indication: Pain and swelling , status post amputation 4 years ago 01/30 The series DX /2015 [facility] Comparison: None Read by: Ky Woods MD [...] the right foot may be beneficial. SL: [id number] LIPIDS VLDL 77 02/16 [place] LIPIDS HDL 29 mg/dL >=61 mg/dL 02/16 The [place] LIPIDS Chol 222 mg/dL <=199 02/16 The mg/dL [place] LIPIDS CHD Risk 7.66 4.00 - 02/16 The 7.30 [place] LIPIDS Trig 384 mg/dL <=149 02/16 The mg/dL [place] LIPIDS LDL 116 mg/dL <=99 mg/dL 02/16 The (Calculated) /2014 [place] CARDIAC CK MB Index 0.8 0.0 - 2.5 02/16 The ENZYMES /2014 [place] CARDIAC CK MB 0.6 ng/mL 0.5 - 3.6 02/16 The ENZYMES /2014 [place] CARDIAC Troponin-I null 0.00 - 02/16 The ENZYMES 0.40 [place] CARDIAC Total CK 76 unit/L 12 - 191 02/16 The ENZYMES [place] CARDIAC Troponin-I null 0.00 - 02/16 MH The ENZYMES 0.40 /2014 [place] CARDIAC Total CK 89 unit/L 12 - 191 02/16 MH The ENZYMES [place] CARDIAC CK MB Index 1.0 0.0 - 2.5 02/16 MH The ENZYMES [place] CARDIAC CK MB 0.9 ng/mL 0.5 - 3.6 02/16 MH The ENZYMES [place] THYROID TSH 2.000 0.360 - 02/16 MH The PANEL uIU/mL 3.740 /2014 [place] CARDIAC CK MB Index 0.8 0.0 - 2.5 02/15 MH The ENZYMES [place] CARDIAC Troponin-I null 0.00 - 02/15 MH The ENZYMES 0.40 [place] CARDIAC Total CK 111 unit/L 12 - 191 02/15 MH The ENZYMES [place] CARDIAC CK MB 0.9 ng/mL 0.5 - 3.6 02/15 MH The ENZYMES [place] CHEM PANEL eGFR 70 02/15 Result Comment: [...] is not recommended in the following populations: [place] 3m2 Individuals with unstable creatinine concentrations, including [...] 87 unit/L 39 - 136 02/15 MH [place] CHEM PANEL AST 23 unit/L 0 - 37 02/15 MH [place] CHEM PANEL ALT 27 unit/L 0 - 65 02/15 MH The [place] CHEM PANEL Albumin Lvl 3.4 g/dL 3.5 - 5.0 02/15 The [place] CHEM PANEL Total 7.7 g/dL 6.4 - 8.4 02/15 MH The Protein [place] CHEM PANEL A/G Ratio 0.8 0.7 - 1.6 02/15 The [place] CHEM PANEL Globulin 4.3 g/dL 2.0 - 4.0 02/15 The [place] CHEM PANEL B/C Ratio 6 6 - 25 02/15 The [place] CHEM PANEL AGAP 11.8 meq/L 10.0 - 02/15 The 20.0 [place] CHEM PANEL Bili Total 0.4 mg/dL 0.2 - 1.3 02/15 The [place] CHEM PANEL Calcium Lvl 9.2 mg/dL 8.5 - 10.5 02/15 The [place] CHEM PANEL CO2 25 meq/L 24 - 32 02/15 The [place] CHEM PANEL Glucose Lvl 88 mg/dL 70 - 99 02/15 The [place] CHEM PANEL Chloride Lvl 106 meq/L 95 - 109 02/15 The [place] CHEM PANEL Potassium 4.8 meq/L 3.5 - 5.1 02/15 The Lv [place] CHEM PANEL Sodium Lvl 138 meq/L 135 - 145 02/15 The [place] CHEM PANEL Creatinine 1.2 mg/dL 0.5 - 1.4 02/15 The l [place] CHEM PANEL BUN 7 mg/dL 7 - 22 02/15 The [place] CHEM PANEL Magnesium 2.0 mg/dL 1.8 - 2.4 02/15 The Lv [place] HEMATOLOGY Eosinophils 0.4 K/CMM 0.0 - 0.5 02/15 The # [place] HEMATOLOGY Basophils # 0.0 K/CMM 0.0 - 0.2 02/15 The [place] HEMATOLOGY Segs-Bands # 4.6 K/CMM 1.5 - 8.1 02/15 The [place] HEMATOLOGY Monocytes # 0.8 K/CMM 0.0 - 0.8 02/15 The [place] HEMATOLOGY Monocytes 10.3 % 2.0 - 12.0 02/15 The [place] HEMATOLOGY Eosinophils 5.0 % 0.0 - 4.0 02/15 The [place] HEMATOLOGY Basophils 0.4 % 0.0 - 1.0 02/15 The /2014 [place] HEMATOLOGY Lymphocytes 25.7 % 20.0 - 02/15 The 40.0 /2014 [place] HEMATOLOGY Lymphocytes 2.0 K/CMM 1.0 - 5.5 02/15 The # /2014 [place] HEMATOLOGY Segs 58.6 % 45.0 - 02/15 The 75.0 [place] HEMATOLOGY INR 1.00 0.85 - 02/15 The 1.17 [place] HEMATOLOGY PT 13.5 s 12.0 - 02/15 The 14.7 [place] HEMATOLOGY PTT 33.7 s 22.9 - 02/15 The 35.8 [place] HEMATOLOGY Platelet 170 K/CMM 133 - 450 02/15 The [place] HEMATOLOGY WBC 7.8 K/CMM 3.7 - 10.4 02/15 The [place] HEMATOLOGY MCH 33.3 pg 27.0 - 02/15 The 31.0 [place] HEMATOLOGY RBC 4.62 M/CMM 4.70 - 02/15 The 6.10 [place] HEMATOLOGY MCV 97.4 fL 80.0 - 02/15 The 94.0 [place] HEMATOLOGY Hgb 15.4 g/dL 14.0 - 02/15 The 18.0 [place] HEMATOLOGY Hct 45.0 % 42.0 - 02/15 The 54.0 [place] HEMATOLOGY MCHC 34.2 g/dL 32.0 - 02/15 The 36.0 [place] HEMATOLOGY MPV 7.0 fL 7.4 - 10.4 02/15 The [place] HEMATOLOGY RDW 16.0 % 11.5 - 02/15 The 14.5 [place] Chest 2 Chest 2 NAME: REMEDIOS SANCHEZ 02/15 - The views DX views DX - [place] : 1965 SEX: M Ordering Physician: Jaciel [...] 02/09 - The complete complete DX /2014 [place] DX : 1965 SEX: M Ordering Physician: [...] U Cocaine Negative Negative 01/23 The SCREEN [place] *NA* (01/23/15 3:10 PM) DRUG U Opiate Scr Negative Negative 01/23 The [place] *NA* (01/23/15 3:10 PM) DRUG U Cannab Scr Negative Negative 01/23 The [place] *NA* (01/23/15 3:10 PM) DRUG U Phencyc Negative Negative 01/23 The SCREEN [place] *NA* (01/23/15 3:10 PM) DRUG UDS Note See Note 01/23 The [place] (01/23/15 3:10 PM) DRUG U Shoshana Scr Negative Negative 01/23 The [place] *NA* (01/23/15 3:10 PM) DRUG U Benzodia Positive Negative 01/23 The SCREEN [place] *ABN* (01/23/15 3:10 PM) DRUG U Amph Scr Negative Negative 01/23 The [place] *NA* (01/23/15 3:10 PM) URINE AND UA [...] 0.0 - 2.5 01/23 MH The ENZYMES [place] CARDIAC Troponin-I null 0.00 - 01/23 MH The ENZYMES 0.40 /2014 [place] CARDIAC Total CK 170 unit/L 12 - 191 01/23 MH The ENZYMES [place] CARDIAC CK MB 1.2 ng/mL 0.5 - 3.6 01/23 The ENZYMES [place] CHEM PANEL eGFR 54 01/23 Result Comment: [...] is not recommended in the following populations: [place] 3m2 Individuals with unstable creatinine concentrations, including [...] A/G Ratio 1.0 0.7 - 1.6 01/23 [place] CHEM PANEL AST 23 unit/L 0 - 37 01/23 The [place] CHEM PANEL Albumin Lvl 4.3 g/dL 3.5 - 5.0 01/23 [place] CHEM PANEL ALT 39 unit/L 0 - 65 01/23 The [place] CHEM PANEL Total 8.8 g/dL 6.4 - 8.4 01/23 The Protein [place] CHEM PANEL Calcium Lvl 9.3 mg/dL 8.5 - 10.5 01/23 [place] CHEM PANEL AGAP 20.5 meq/L 10.0 - 01/23 MH The 20.0 [place] CHEM PANEL Globulin 4.5 g/dL 2.0 - 4.0 01/23 [place] CHEM PANEL B/C Ratio 10 6 - 25 01/23 [place] CHEM PANEL Bili Total 0.5 mg/dL 0.2 - 1.3 01/23 MH The [place] CHEM PANEL Alk Phos 88 unit/L 39 - 136 01/23 MH The [place] CHEM PANEL Potassium 4.5 meq/L 3.5 - 5.1 01/23 MH The Lvl [place] CHEM PANEL Sodium Lvl 139 meq/L 135 - 145 01/23 The [place] CHEM PANEL CO2 17 meq/L 24 - 32 01/23 The [place] CHEM PANEL Chloride Lvl 106 meq/L 95 - 109 01/23 MH The [place] CHEM PANEL Glucose Lvl 114 mg/dL 70 - 99 01/23 MH The [place] CHEM PANEL Creatinine 1.5 mg/dL 0.5 - 1.4 01/23 MH The Lv [place] CHEM PANEL BUN 15 mg/dL 7 - 22 01/23 The [place] HEMATOLOGY Segs 89.7 % 45.0 - 01/23 MH The 75.0 [place] HEMATOLOGY Segs-Bands # 11.6 K/CMM 1.5 - 8.1 01/23 The [place] HEMATOLOGY Lymphocytes 0.8 K/CMM 1.0 - 5.5 01/23 MH The [place] HEMATOLOGY Lymphocytes 6.5 % 20.0 - 01/23 The 40.0 [place] HEMATOLOGY Monocytes 3.2 % 2.0 - 12.0 01/23 MH The [place] HEMATOLOGY Monocytes # 0.4 K/CMM 0.0 - 0.8 01/23 The [place] HEMATOLOGY Eosinophils 0.0 K/CMM 0.0 - 0.5 01/23 MH The [place] HEMATOLOGY Basophils # 0.1 K/CMM 0.0 - 0.2 01/23 MH The [place] HEMATOLOGY Eosinophils 0.2 % 0.0 - 4.0 01/23 The [place] HEMATOLOGY Basophils 0.4 % 0.0 - 1.0 01/23 The [place] HEMATOLOGY PT 14.2 s 12.0 - 01/23 MH The 14.7 [place] HEMATOLOGY INR 1.07 0.85 - 01/23 MH The 1.17 [place] HEMATOLOGY PTT 31.2 s 22.9 - 01/23 MH The 35.8 [place] HEMATOLOGY MPV 8.3 fL 7.4 - 10.4 01/23 The [place] HEMATOLOGY MCHC 32.8 g/dL 32.0 - 01/23 The 36.0 [place] HEMATOLOGY RDW 17.0 % 11.5 - 01/23 MH The 14.5 [place] HEMATOLOGY Platelet 202 K/CMM 133 - 450 01/23 The [place] HEMATOLOGY Hct 51.7 % 42.0 - 01/23 The 54.0 [place] HEMATOLOGY MCV 97.9 fL 80.0 - 01/23 The 94.0 [place] HEMATOLOGY MCH 32.1 pg 27.0 - 01/23 The 31.0 [place] HEMATOLOGY Hgb 17.0 g/dL 14.0 - 01/23 The 18.0 [place] HEMATOLOGY WBC 12.9 K/CMM 3.7 - 10.4 01/23 The [place] HEMATOLOGY RBC 5.28 M/CMM 4.70 - 01/23 The 6.10 [place] TOXICOLOGY Etoh (%) null 01/23 The [place] TOXICOLOGY Ethanol Lvl null 01/23 [place] Brain wo Brain wo Name: REMEDIOS SANCHEZ 01/23 - The contrast contrast CT /2014 [facility] [place] : 1965 Read by: Tayla Thorne [...] is not recommended in the following populations: [address] Individuals with unstable creatinine concentrations, including [...] Total 0.3 mg/dL 0.2 - 1.3 11/20 [place] CHEM PANEL AST 18 unit/L 0 - 37 11/20 [place] CHEM PANEL Alk Phos 88 unit/L 39 - 136 11/20 [place] CHEM PANEL ALT 36 unit/L 0 - 65 11/20 [place] CHEM PANEL Albumin Lvl 4.0 g/dL 3.5 - 5.0 11/20 [place] CHEM PANEL Total 8.8 g/dL 6.4 - 8.4 11/20 The Protein [place] CHEM PANEL CO2 22 meq/L 24 - 32 11/20 The [place] CHEM PANEL Calcium Lvl 9.5 mg/dL 8.5 - 10.5 11/20 The [place] CHEM PANEL Chloride Lvl 103 meq/L 95 - 109 11/20 The [place] CHEM PANEL Sodium Lvl 135 meq/L 135 - 145 11/20 The [place] CHEM PANEL Potassium 4.2 meq/L 3.5 - 5.1 11/20 The Lvl [place] CHEM PANEL Creatinine 1.2 mg/dL 0.5 - 1.4 11/20 The Lvl [place] CHEM PANEL Glucose Lvl 110 mg/dL 70 - 99 11/20 4Interpretive Data: Adult reference range values reflect the clinical guidelines MH of the [place] [employer]. [place] CHEM PANEL BUN 7 mg/dL 7 - 22 11/20 The [place] CHEM PANEL Globulin 4.8 g/dL 2.0 - 4.0 11/20 The [place] CHEM PANEL A/G Ratio 0.8 0.7 - 1.6 11/20 The [place] CHEM PANEL B/C Ratio 6 6 - 25 11/20 The [place] CHEM PANEL AGAP 14.2 meq/L 10.0 - 11/20 The 20.0 [place] HEMATOLOGY Eosinophils 3.2 % 0.0 - 4.0 11/20 The [place] HEMATOLOGY Lymphocytes 16.7 % 20.0 - 11/20 The 40.0 [place] HEMATOLOGY Monocytes 6.2 % 2.0 - 12.0 11/20 The [place] HEMATOLOGY Segs 73.3 % 45.0 - 11/20 The 75.0 [place] HEMATOLOGY Basophils 0.6 % 0.0 - 1.0 11/20 The [place] HEMATOLOGY Basophils # 0.1 K/CMM 0.0 - 0.2 11/20 The [place] HEMATOLOGY Eosinophils 0.3 K/CMM 0.0 - 0.5 11/20 The # [place] HEMATOLOGY Monocytes # 0.6 K/CMM 0.0 - 0.8 11/20 The [place] HEMATOLOGY Lymphocytes 1.6 K/CMM 1.0 - 5.5 11/20 The # [place] HEMATOLOGY Segs-Bands # 6.8 K/CMM 1.5 - 8.1 11/20 The [place] HEMATOLOGY Platelet 170 K/CMM 133 - 450 11/20 The [place] HEMATOLOGY MPV 7.6 fL 7.4 - 10.4 11/20 The [place] HEMATOLOGY MCHC 33.8 g/dL 32.0 - 11/20 The 36.0 [place] HEMATOLOGY RDW 14.2 % 11.5 - 11/20 The 14. [place] HEMATOLOGY MCH 33.1 pg 27.0 - 11/20 The 31.0 [place] HEMATOLOGY MCV 97.9 fL 80.0 - 11/20 The 94.0 [place] HEMATOLOGY Hgb 14.2 g/dL 14.0 - 11/20 The 18.0 [place] HEMATOLOGY Hct 42.1 % 42.0 - 11/20 The 54.0 [place] HEMATOLOGY WBC 9.3 K/CMM 3.7 - 10.4 11/20 The [place] HEMATOLOGY RBC 4.30 M/CMM 4.70 - 11/20 The 6. [place] TOXICOLOGY Vanco Tr TND unknown 11/20 [place] TOXICOLOGY Vanco Tr 7.7 ug/ml 11/20 5Interpretive Data: Therapeutic Range: Trough: 10 - 20 ug/mL [place] Peak: 20 - 40 ug/mL Potential Toxicity: [...] is not recommended in the following populations: [place] 3m2 Individuals with unstable creatinine concentrations, including [...] 1.7 mg/dL 0.5 - 1.4 11/17 The [place] CHEM PANEL BUN 14 mg/dL 7 - 22 11/17 [place] ELECTROLYT Potassium 4.3 meq/L 3.5 - 5.1 11/17 The ES [place] HEMATOLOGY Hct 36.8 % 42.0 - 11/17 The 54.0 [place] HEMATOLOGY MCV 97.6 fL 80.0 - 11/17 The 94.0 [place] HEMATOLOGY MCH 33.2 pg 27.0 - 11/17 The 31.0 [place] HEMATOLOGY Hgb 12.5 g/dL 14.0 - 11/17 The 18.0 [place] HEMATOLOGY WBC 7.7 K/CMM 3.7 - 10.4 11/17 [place] HEMATOLOGY RBC 3.77 M/CMM 4.70 - 11/17 The 6.10 [place] HEMATOLOGY RDW 14.0 % 11.5 - 11/17 The 14. [place] HEMATOLOGY Platelet 155 K/CMM 133 - 450 11/17 [place] HEMATOLOGY MPV 7.7 fL 7.4 - 10.4 11/17 The [place] HEMATOLOGY MCHC 34.0 g/dL 32.0 - 11/17 The 36.0 [place] HEMATOLOGY Segs-Bands # 5.7 K/CMM 1.5 - 8.1 11/17 [place] HEMATOLOGY Eosinophils 4.3 % 0.0 - 4.0 11/17 The [place] HEMATOLOGY Basophils # 0.0 K/CMM 0.0 - 0.2 11/17 The [place] HEMATOLOGY Basophils 0.3 % 0.0 - 1.0 11/17 The [place] HEMATOLOGY Monocytes 5.1 % 2.0 - 12.0 11/17 [place] HEMATOLOGY Lymphocytes 16.3 % 20.0 - 11/17 The 40.0 [place] HEMATOLOGY Lymphocytes 1.2 K/CMM 1.0 - 5.5 11/17 The [place] HEMATOLOGY Eosinophils 0.3 K/CMM 0.0 - 0.5 11/17 The [place] HEMATOLOGY Monocytes # 0.4 K/CMM 0.0 - 0.8 11/17 [place] HEMATOLOGY Segs 74.0 % 45.0 - 11/17 The 75.0 [place] TOXICOLOGY Vanco Tr TND unknown 11/17 [place] TOXICOLOGY Vanco Tr 24.4 ug/ml 11/17 6Interpretive Data: Therapeutic Range: Trough: 10 - 20 ug/mL [place] Peak: 20 - 40 ug/mL Potential Toxicity: [...] is not recommended in the following populations: [place] 3m2 Individuals with unstable creatinine concentrations, including [...] 1.5 mg/dL 0.5 - 1.4 11/13 The [place] CHEM PANEL BUN 11 mg/dL 7 - 22 11/13 [place] ELECTROLYT Potassium 4.5 meq/L 3.5 - 5.1 11/13 The ES [place] HEMATOLOGY MCH 32.7 pg 27.0 - 11/13 The 31.0 [place] HEMATOLOGY MCHC 33.6 g/dL 32.0 - 11/13 The 36.0 [place] HEMATOLOGY Platelet 186 K/CMM 133 - 450 11/13 [place] HEMATOLOGY RDW 14.0 % 11.5 - 11/13 The 14.5 [place] HEMATOLOGY MPV 7.4 fL 7.4 - 10.4 11/13 The [place] HEMATOLOGY Hgb 12.2 g/dL 14.0 - 11/13 The 18.0 [place] HEMATOLOGY RBC 3.73 M/CMM 4.70 - 11/13 The 6.10 [place] HEMATOLOGY MCV 97.6 fL 80.0 - 11/13 The 94.0 [place] HEMATOLOGY Hct 36.4 % 42.0 - 11/13 The 54.0 [place] HEMATOLOGY WBC 9.7 K/CMM 3.7 - 10.4 11/13 The [place] HEMATOLOGY Basophils # 0.1 K/CMM 0.0 - 0.2 11/13 The [place] HEMATOLOGY Lymphocytes 2.0 K/CMM 1.0 - 5.5 11/13 The [place] HEMATOLOGY Monocytes # 0.7 K/CMM 0.0 - 0.8 11/13 The [place] HEMATOLOGY Eosinophils 0.4 K/CMM 0.0 - 0.5 11/13 The [place] HEMATOLOGY Basophils 0.6 % 0.0 - 1.0 11/13 The [place] HEMATOLOGY Segs-Bands # 6.6 K/CMM 1.5 - 8.1 11/13 The [place] HEMATOLOGY Lymphocytes 20.5 % 20.0 - 11/13 The 40.0 [place] HEMATOLOGY Monocytes 7.3 % 2.0 - 12.0 11/13 The [place] HEMATOLOGY Eosinophils 3.7 % 0.0 - 4.0 11/13 The [place] HEMATOLOGY Segs 67.9 % 45.0 - 11/13 The 75.0 [place] TOXICOLOGY Vanco Tr TND NA 11/13 The [place] TOXICOLOGY Vanco Tr 24.1 ug/ml 11/13 7Interpretive Data: Therapeutic Range: Trough: 10 - 20 ug/mL [place] Peak: 20 - 40 ug/mL Potential Toxicity: >80 ug/mL Vital Signs Vital Sign Value Date Comments Source Systolic (mm Hg) 84 04/05/2016 [facility] Diastolic (mm Hg) 47 04/05/2016 [facility] [place] Respitory Rate 18 04/05/2016 [place] Heart Rate 76 04/05/2016 [place] Systolic (mm Hg) 80 04/05/2016 [place] Diastolic (mm Hg) 49 04/05/2016 [place] Respitory Rate 18 04/05/2016 [place] Heart Rate 73 04/05/2016 [place] Respitory Rate 18 04/05/2016 [place] Heart Rate 72 04/05/2016 [place] Systolic (mm Hg) 79 04/05/2016 [place] Diastolic (mm Hg) 42 04/05/2016 [place] Temperature Oral (F) 97.7 F 04/05/2016 [place] Temperature Oral (F) 97.7 F 04/05/2016 [place] Temperature Oral (F) 98.2 F 04/05/2016 [place] Weight 98.6 04/05/2016 [place] BMI Calculated 28.81 04/05/2016 [place] Height 185 cm 04/05/2016 [place] Respitory Rate 18 03/14/2016 [place] Systolic (mm Hg) 119 03/14/2016 [place] Diastolic (mm Hg) 63 03/14/2016 [place] Systolic (mm Hg) 124 03/14/2016 [place] Diastolic (mm Hg) 58 03/14/2016 [place] Respitory Rate 16 03/14/2016 [place] Temperature Oral (F) 98.8 F 03/14/2016 [place] Respitory Rate 18 03/14/2016 [place] Systolic (mm Hg) 129 03/14/2016 [place] Diastolic (mm Hg) 62 03/14/2016 [place] Temperature Oral (F) 98.7 F 03/14/2016 [place] Heart Rate 95 03/14/2016 [place] BMI Calculated 28.69 03/13/2016 [place] Weight 98.636 03/13/2016 [place] Temperature Oral (F) 98.6 F 03/13/2016 [place] Height 185.42 cm 03/13/2016 [place] Heart Rate 105 03/13/2016 [place] Heart Rate 111 02/18/2016 [place] Temperature Oral (F) 98.8 F 02/18/2016 [place] Respitory Rate 18 02/18/2016 [facility] [place] Systolic (mm Hg) 110 02/18/2016 [facility] [place] Diastolic (mm Hg) 56 02/18/2016 [place] Temperature Oral (F) 98.3 F 02/18/2016 [facility] [place] Heart Rate 97 02/18/2016 MH [place] Systolic (mm Hg) 94 02/18/2016 [facility] [place] Diastolic (mm Hg) 56 02/18/2016 [facility] [place] Respitory Rate 18 02/18/2016 [place] Temperature Oral (F) 98.2 F 02/18/2016 [place] Heart Rate 86 02/18/2016 MH [place] Systolic (mm Hg) 112 02/18/2016 MH [place] Diastolic (mm Hg) 54 02/18/2016 MH [place] Respitory Rate 18 02/18/2016 [place] Weight 96.023 02/08/2016 [place] BMI Calculated 28.69 02/08/2016 MH [place] Weight 98.636 02/08/2016 [facility] [place] Height 185.42 cm 02/08/2016 [facility] [place] Weight 97.273 02/01/2016 [facility] [place] BMI Calculated 28.29 02/01/2016 [facility] [place] Height 185.42 cm 02/01/2016 [facility] [place] Height 185.42 cm 01/31/2016 [facility] [place] BMI Calculated 27.63 01/31/2016 MH [place] Respitory Rate 16 02/16/2015 [place] Temperature Oral (F) 98.0 F 02/16/2015 [place] Respitory Rate 18 02/16/2015 [place] Heart Rate 77 02/16/2015 MH [place] Systolic (mm Hg) 175 02/16/2015 MH [place] Diastolic (mm Hg) 94 02/16/2015 MH [place] Temperature Oral (F) 98.2 F 02/16/2015 MH [place] Heart Rate 74 02/16/2015 MH [place] Systolic (mm Hg) 164 02/16/2015 [facility] [place] Diastolic (mm Hg) 89 02/16/2015 [place] Respitory Rate 18 02/16/2015 [place] Temperature Oral (F) 97.5 F 02/16/2015 MH [place] Systolic (mm Hg) 145 02/16/2015 MH [place] Diastolic (mm Hg) 83 02/16/2015 MH [place] Heart Rate 72 02/16/2015 MH [place] Height 185.42 cm 02/16/2015 [facility] [place] BMI Calculated 28.58 02/16/2015 MH [place] Weight 98.267 02/16/2015 MH [place] Weight 13.636 02/15/2015 [facility] [place] BMI Calculated 3.97 02/15/2015 [facility] [place] Height 185.42 cm 02/15/2015 [place] Temperature Oral (F) 98.2 F 02/09/2015 [facility] [place] Heart Rate 88 02/09/2015 [facility] [place] Respitory Rate 18 02/09/2015 [facility] [place] Systolic (mm Hg) 173 02/09/2015 [facility] [place] Diastolic (mm Hg) 82 02/09/2015 [place] BMI Calculated 31.47 02/09/2015 [facility] [place] Weight 108.182 02/09/2015 [place] Height 185.42 cm 02/09/2015 [facility] [place] Systolic (mm Hg) 189 02/09/2015 [facility] [place] Diastolic (mm Hg) 97 02/09/2015 [place] Heart Rate 77 02/09/2015 [facility] [place] Respitory Rate 16 02/09/2015 [facility] [place] Systolic (mm Hg) 172 01/23/2015 [facility] [place] Diastolic (mm Hg) 79 01/23/2015 [facility] [place] Systolic (mm Hg) 174 01/23/2015 [facility] [place] Diastolic (mm Hg) 92 01/23/2015 [place] Systolic (mm Hg) 184 01/23/2015 [facility] [place] Diastolic (mm Hg) 86 01/23/2015 [place] Respitory Rate 18 01/23/2015 [place] Weight 104.545 01/23/2015 [facility] [place] Height 185.42 cm 01/23/2015 [place] BMI Calculated 30.41 01/23/2015 [facility] [place] Respitory Rate 18 01/23/2015 [place] Heart Rate 92 01/23/2015 [place] Temperature Oral (F) 98.5 F 01/23/2015 [place] Encounters Location Location Encounter Encounter Reason Attending ADM DC Status Source Details Type Number For Provider Date Date Visit [facility] Recurring [id number] Nabeel 10/31 11/30 [facility] /2013 [facility] EC Emergency [id number] Edozie 01/23 01/23 [facility] Lisandra /2014 [facility] EC Emergency [id number] Az [place] 02/09 02/09 [facility] /2014 [facility] OBS [id number] Juan 02/15 02/16 [facility] [place] [facility] /2014 [place] The Patient [facility] Inpatient [id number] Abbas 01/30 02/17 [facility] [place] Kari /2015 [facility] Emergency [id number] Blanche 03/13 03/14 [facility] /2015 [facility] Outpatient [id number] Abb 04/05 04/06 [facility] [place] Kari /2015 [facility] Procedures Procedure Code Date Perfomer Comments Source Amputation of toe [id number] [facility] Amputation of [id number] 2 toes The toe<sup>1</sup> [place] Blood transfusion [id number] [facility]
--- OUTSIDE RECORDS SUMMARY | 2018-08-31 12:04 | XMS REPORT ---
:1965 [facility] [address] [place] [address] Dr. Monsivais [address] [place] [id number] Care Team Providers Name Role Phone VICTOR [...] Value Reference Range Comments CULTURE (BEAKER) (test gbae=7394) No growth in 5 days STOOL CULTURE + SHIGA [id number] 09:59:00 Test Item Value Reference Range Comments CULTURE (BEAKER) (test No Salmonella, Shigella or csni=6631) Campylobacter isolated STOOL PATH [id number] 09:01:00 Test Item Value Reference Range Comments PATHOGEN EXAM CHARGED (BEAKER) (test cxud=3729) Done BASIC METABOLIC [id number] 06:59:00 Test Item Value Reference Range Comments SODIUM (BEAKER) (test 137 meq/L 136-145 ixma=723) POTASSIUM (BEAKER) (test 3.6 meq/L 3.5-5.1 nsqj=844) CHLORIDE (BEAKER) (test 110 meq/L 98-107 wypn=234) CO2 (BEAKER) (test 16 meq/L 22-29 tpgs=282) BLOOD UREA NITROGEN 18 mg/dL 7-21 (BEAKER) (test zege=119) CREATININE (BEAKER) (test 2.02 mg/dL 0.57-1.25 jaqb=769) GLUCOSE RANDOM (BEAKER) 91 mg/dL 70-105 (test njjk=785) CALCIUM (BEAKER) (test 9.3 mg/dL 8.4-10.2 qqyo=915) EGFR (BEAKER) (test 35 mL/min/1.73 sq m ESTIMATED GFR IS NOT rdfr=2357) ACCURATE CREATININE CLEARANCE IN PREDICTING GLOMERULAR FILTRATION RATE. ESTIMATED GFR IS NOT APPLICABLE FOR DIALYSIS PATIENTS. SHIGA TOXIN [id number] 15:48:00 Test Item Value Reference Range Comments SHIGA TOXIN 1 (BEAKER) (test lhcp=0429) Not detected Not detected SHIGA TOXIN 2 (BEAKER) (test diaf=3516) Not detected Not detected CLOSTRIDIUM DIFFICILE TOXIN [id number] 15:13:00 Test Item Value Reference Range Comments CLOSTRIDIUM DIFFICILE TOXIN, PCR (BEAKER) (test Not Detected Not Detected btpg=8652) This qualitative real-time polymerase chain reaction assay [...] a positive result is not recommended.BLOOD GAS, [id number] 11:03:00 Test Item Value Reference Range Comments PH ARTERIAL (BEAKER) (test oxfv=039) 7.38 7.35-7.45 PCO2 ARTERIAL (BEAKER) (test cies=849) 28 mmHg 35-45 PO2 ARTERIAL (BEAKER) (test duch=986) 95 mmHg 80-90 O2 SATURATION ARTERIAL (BEAKER) (test opxw=123) 97.4 % 96.0-97.0 HCO3 ARTERIAL (BEAKER) (test qjfj=737) 16 mmol/L 21-29 BASE EXCESS ARTERIAL (BEAKER) (test xegp=569) -7.2 mmol/L -2.0-3.0 PATIENT TEMPERATURE (BEAKER) (test gtye=2783) 36.5 C FIO2 (BEAKER) (test noqa=1336) 21.0 % BASIC METABOLIC [id number] 05:14:00 Test Item Value Reference Range Comments SODIUM (BEAKER) (test 136 meq/L 136-145 ibpx=864) POTASSIUM (BEAKER) (test 3.9 meq/L 3.5-5.1 lawf=622) CHLORIDE (BEAKER) (test 111 meq/L 98-107 kpeh=654) CO2 (BEAKER) (test 13 meq/L 22-29 upat=578) BLOOD UREA NITROGEN 20 mg/dL 7-21 (BEAKER) (test rykl=005) CREATININE (BEAKER) (test 2.70 mg/dL 0.57-1.25 grvm=651) GLUCOSE RANDOM (BEAKER) 77 mg/dL 70-105 (test xkrz=155) CALCIUM (BEAKER) (test 9.3 mg/dL 8.4-10.2 lics=215) EGFR (BEAKER) (test 25 mL/min/1.73 sq m ESTIMATED GFR IS NOT ycex=4673) ACCURATE CREATININE CLEARANCE IN PREDICTING GLOMERULAR FILTRATION RATE. ESTIMATED GFR IS NOT APPLICABLE FOR DIALYSIS PATIENTS. PTH, [id number] 05:03:00 Test Item Value Reference Range Comments PARATHYROID HORMONE INTACT (BEAKER) (test 41.8 pg/mL 8.5-72.5 icui=801) BASIC METABOLIC [id number] 07:10:00 Test Item Value Reference Range Comments SODIUM (BEAKER) (test 136 meq/L 136-145 rqtt=270) POTASSIUM (BEAKER) (test 3.4 meq/L 3.5-5.1 faat=012) CHLORIDE (BEAKER) (test 109 meq/L 98-107 mzrq=519) CO2 (BEAKER) (test 15 meq/L 22-29 wvkc=040) BLOOD UREA NITROGEN 23 mg/dL 7-21 (BEAKER) (test zkda=514) CREATININE (BEAKER) (test 3.91 mg/dL 0.57-1.25 uofw=838) GLUCOSE RANDOM (BEAKER) 79 mg/dL 70-105 (test rzwa=779) CALCIUM (BEAKER) (test 8.9 mg/dL 8.4-10.2 eqkt=167) EGFR (BEAKER) (test 16 mL/min/1.73 sq m ESTIMATED GFR IS NOT tyov=6957) ACCURATE CREATININE CLEARANCE IN PREDICTING GLOMERULAR FILTRATION RATE. ESTIMATED GFR IS NOT APPLICABLE FOR DIALYSIS PATIENTS. SODIUM, RANDOM [id number] 06:58:00 Test Item Value Reference Range Comments SODIUM URINE (BEAKER) (test vfvq=818) 65 meq/L Reference Range: No NormalsPROTHROMBIN [id number] 06:47:00 Test Item Value Reference Range Comments PROTIME (BEAKER) (test hpuu=865) 14.5 seconds 11.7-14.7 INR (BEAKER) (test fvko=771) 1.1 <=5.9 RECOMMENDED COUMADIN/WARFARIN INR THERAPY RANGESSTANDARD DOSE: 2.0 - 3.0 Includes: PROPHYLAXIS forvenous thrombosis, systemic embolization; TREATMENT for venous thrombosis and/or pulmonary embolus.HIGH RISK: Target INR is 2.5-3.5 for patients with mechanical heart valves.RAPID DRUG SCREEN, [id number] 15: 43:00 Test Item Value Reference Range Comments BARBITURATE URINE (BEAKER) (test drqn=972) Negative Negative BENZODIAZEPINE SCREEN URINE (BEAKER) (test Positive Negative edec=871) COCAINE (METAB.) SCREEN (BEAKER) (test uswn=9283) Negative Negative METHADONE SCREEN (BEAKER) (test uezc=5096) Negative Negative OPIATE SCREEN URINE (BEAKER) (test yesd=542) Negative Negative CANNABINOID SCREEN URINE (BEAKER) (test nfgp=680) Negative Negative AMPH/METHAMPH SCREEN (BEAKER) (test amno=1666) Negative Negative PHENCYCLIDINE SCREEN URINE (BEAKER) (test rjyd=450) Negative Negative OXYCODONE SCREEN URINE (BEAKER) (test ikyu=1067) Negative Negative DRUG CUTOFF CONC.Cocaine 300 ng/mL Cannabinoid 50 ng/mL Benzodiazepine 200 ng/mLBarbiturate 200 ng/ mLPhencyclidine 25 ng/mLOpiate 300 ng/mLMethadone 300 ng/mLAmphetamine/ 1000 ng/mL MethamphetamineOxycodone 300 ng/mLThis assay provides an unconfirmed qualitative test result for the clinical management of patients in emergency situations. Chain of custody not maintained. Some irph-nrp-jmxnlaq medications, as well as adulterants, may cause inaccurate results. Clinical correlation should be applied. A more comprehensive drug screen or confirmation of a detected drug may be performed upon request.URINE [id number] 14:33:00 Test Item Value Reference Range Comments CULTURE (BEAKER) (test jylz=7967) No growth BASIC METABOLIC [id number] 08:09:00 Test Item Value Reference Range Comments SODIUM (BEAKER) (test 136 meq/L 136-145 ymgp=067) POTASSIUM (BEAKER) (test 3.5 meq/L 3.5-5.1 Specimen slightly qqrr=860) hemolyzed CHLORIDE (BEAKER) (test 107 meq/L 98-107 ahbz=595) CO2 (BEAKER) (test 15 meq/L 22-29 gidu=181) BLOOD UREA NITROGEN 25 mg/dL 7-21 (BEAKER) (test mvmy=133) CREATININE (BEAKER) (test 4.75 mg/dL 0.57-1.25 Specimen slightly rcxs=240) hemolyzed GLUCOSE RANDOM (BEAKER) 74 mg/dL 70-105 (test puys=672) CALCIUM (BEAKER) (test 8.5 mg/dL 8.4-10.2 twtk=830) EGFR (BEAKER) (test 13 mL/min/1.73 sq m ESTIMATED GFR IS NOT xfrk=3959) ACCURATE CREATININE CLEARANCE IN PREDICTING GLOMERULAR FILTRATION RATE. ESTIMATED GFR IS NOT APPLICABLE FOR DIALYSIS PATIENTS. CBC W/PLT COUNT & AUTO [id number] 06:38:00 Test Item Value Reference Range Comments WHITE BLOOD CELL COUNT (BEAKER) (test rlzu=641) 9.9 K/ L 3.5-10.5 RED BLOOD CELL COUNT (BEAKER) (test diej=254) 4.01 M/ L 4.63-6.08 HEMOGLOBIN (BEAKER) (test xsyv=058) 13.2 GM/DL 13.7-17.5 HEMATOCRIT (BEAKER) (test hdhm=484) 38.1 % 40.1-51.0 MEAN CORPUSCULAR VOLUME (BEAKER) (test cwjz=288) 95.0 fL 79.0-92.2 MEAN CORPUSCULAR HEMOGLOBIN (BEAKER) (test 32.9 pg 25.7-32.2 yejh=711) MEAN CORPUSCULAR HEMOGLOBIN CONC (BEAKER) (test 34.6 GM/DL 32.3-36.5 fqgm=430) RED CELL DISTRIBUTION WIDTH (BEAKER) (test 13.1 % 11.6-14.4 tpbk=284) PLATELET COUNT (BEAKER) (test moey=530) 121 K/CU MM 150-450 MEAN PLATELET VOLUME (BEAKER) (test tyfp=043) 10.1 fL 9.4-12.4 NUCLEATED RED BLOOD CELLS (BEAKER) (test 0 /100 WBC 0-0 shzm=110) NEUTROPHILS RELATIVE PERCENT (BEAKER) (test 73 % njml=959) LYMPHOCYTES RELATIVE PERCENT (BEAKER) (test 17 % qkpt=328) MONOCYTES RELATIVE PERCENT (BEAKER) (test 8 % idrv=336) EOSINOPHILS RELATIVE PERCENT (BEAKER) (test 2 % qbbr=588) BASOPHILS RELATIVE PERCENT (BEAKER) (test 0 % acos=840) NEUTROPHILS ABSOLUTE COUNT (BEAKER) (test 7.25 K/ L 1.78-5.38 vssq=847) LYMPHOCYTES ABSOLUTE COUNT (BEAKER) (test 1.66 K/ L 1.32-3.57 olpg=312) MONOCYTES ABSOLUTE COUNT (BEAKER) (test 0.76 K/ L 0.30-0.82 szhd=541) EOSINOPHILS ABSOLUTE COUNT (BEAKER) (test 0.19 K/ L 0.04-0.54 allq=228) BASOPHILS ABSOLUTE COUNT (BEAKER) (test 0.03 K/ L 0.01-0.08 kbyf=147) IMMATURE GRANULOCYTES-RELATIVE PERCENT (BEAKER) 0 % 0-1 (test svry=8106) U/S, RENAL, [id number] 22:34:00Reason for exam:->acute kidney injuryFINAL REPORT Renal [...] [place] Verified Date/Time: 2016 22:34:25 Reading Location:[facility] Consult Reading Room MR, BRAIN, WITHOUT [id number] 19:18:00Reason for exam:->Stroke evaluationFINAL REPORT MRI Brain [...] MDReport Verified Date/Time: 04/17/2017 19:18:34 Reading Location: [facility] Radiology Reading Room EEG MONITORING WITH VIDEO RECORDING EACH 24 [id number] 18:01:00DATE OF TEST: 04/17/2017 DATE OF REPORT 04/17/2017 ACC: [id number] EE Start time: 16:42 Stop time: 18: 44 ICD-10: R56.9 CPT Code: 91850 HISTORY: 51 y/o woman with history of [...] Shahnaz Davis MD Neurophysiology Attending URINALYSIS W/ [id number] 11:57:00 Test Item Value Reference Range Comments COLOR (BEAKER) (test viao=393) Light Yellow CLARITY (BEAKER) (test zzcm=035) Clear SPECIFIC GRAVITY UA (BEAKER) (test rnab=068) 1.006 1.001-1.035 PH UA (BEAKER) (test ikvk=995) 6.0 5.0-8.0 PROTEIN UA (BEAKER) (test hbfu=523) 30 mg/dL Negative GLUCOSE UA (BEAKER) (test yfwg=563) Negative Negative KETONES UA (BEAKER) (test vepy=600) Negative Negative BILIRUBIN UA (BEAKER) (test kefc=078) Negative Negative BLOOD UA (BEAKER) (test osks=040) Small Negative NITRITE UA (BEAKER) (test lotv=360) Negative Negative LEUKOCYTE ESTERASE UA (BEAKER) (test hemo=251) Large Negative UROBILINOGEN UA (BEAKER) (test skpe=375) 0.2 mg/dL 0.2-1.0 RBC UA (BEAKER) (test vdfk=473) 7 /HPF WBC UA (BEAKER) (test usma=256) 21 /HPF BACTERIA (BEAKER) (test gqpv=432) Occasional SQUAMOUS EPITHELIAL (BEAKER) (test nntc=296) < /HPF URIC ACID CRYSTALS (BEAKER) (test wcmr=6019) Rare SOURCE(BEAKER) (test smnk=0001) Urine, Cooper EOSINOPHIL SMEAR, [id number] 11:56:00 Test Item Value Reference Range Comments EOSINOPHIL SMEAR, URINE (BEAKER) (test No EOS seen No EOS seen uodh=7307) CREATININE, RANDOM [id number] 11:24:00 Test Item Value Reference Range Comments CREATININE URINE (BEAKER) (test fdla=575) 69.7 mg/dL Reference Range: No NormalsSODIUM, RANDOM [id number] 11:24:00 Test Item Value Reference Range Comments SODIUM URINE (BEAKER) (test yelo=841) 58 meq/L Reference Range: No NormalsUREA NITROGEN, RANDOM [id number] 11:24:00 Test Item Value Reference Range Comments UREA NITROGEN URINE (BEAKER) (test ofpf=545) 172 mg/dL Reference Range: No NormalsCREATINE KINASE (CK)2017-04-17 11:06:00 Test Item Value Reference Range Comments CREATINE KINASE TOTAL (BEAKER) (test bwis=021) 136 U/L 29-200 BASIC METABOLIC [id number] 04:53:00 Test Item Value Reference Range Comments SODIUM (BEAKER) (test 137 meq/L 136-145 mcwu=073) POTASSIUM (BEAKER) (test 3.4 meq/L 3.5-5.1 auzm=932) CHLORIDE (BEAKER) (test 105 meq/L 98-107 rccd=913) CO2 (BEAKER) (test 21 meq/L 22-29 qkwl=411) BLOOD UREA NITROGEN 19 mg/dL 7-21 (BEAKER) (test jgul=107) CREATININE (BEAKER) (test 3.75 mg/dL 0.57-1.25 rqyz=020) GLUCOSE RANDOM (BEAKER) 100 mg/dL 70-105 (test idpm=961) CALCIUM (BEAKER) (test 8.6 mg/dL 8.4-10.2 miul=986) EGFR (BEAKER) (test 17 mL/min/1.73 sq m ESTIMATED GFR IS NOT qisf=2240) ACCURATE CREATININE CLEARANCE IN PREDICTING GLOMERULAR FILTRATION RATE. ESTIMATED GFR IS NOT APPLICABLE FOR DIALYSIS PATIENTS. CBC W/PLT COUNT & AUTO [id number] 04:19:00 Test Item Value Reference Range Comments WHITE BLOOD CELL COUNT (BEAKER) (test ouly=590) 12.0 K/ L 3.5-10.5 RED BLOOD CELL COUNT (BEAKER) (test iwhw=779) 4.19 M/ L 4.63-6.08 HEMOGLOBIN (BEAKER) (test fzvi=637) 13.8 GM/DL 13.7-17.5 HEMATOCRIT (BEAKER) (test bams=912) 40.4 % 40.1-51.0 MEAN CORPUSCULAR VOLUME (BEAKER) (test jpet=019) 96.4 fL 79.0-92.2 MEAN CORPUSCULAR HEMOGLOBIN (BEAKER) (test 32.9 pg 25.7-32.2 obdy=251) MEAN CORPUSCULAR HEMOGLOBIN CONC (BEAKER) (test 34.2 GM/DL 32.3-36.5 vwbz=730) RED CELL DISTRIBUTION WIDTH (BEAKER) (test 13.4 % 11.6-14.4 snbc=203) PLATELET COUNT (BEAKER) (test tkoa=482) 118 K/CU MM 150-450 MEAN PLATELET VOLUME (BEAKER) (test rktk=312) 9.5 fL 9.4-12.4 NUCLEATED RED BLOOD CELLS (BEAKER) (test 0 /100 WBC 0-0 xnvt=205) NEUTROPHILS RELATIVE PERCENT (BEAKER) (test 77 % qhld=604) LYMPHOCYTES RELATIVE PERCENT (BEAKER) (test 15 % urug=798) MONOCYTES RELATIVE PERCENT (BEAKER) (test 7 % vslw=747) EOSINOPHILS RELATIVE PERCENT (BEAKER) (test 1 % toyj=460) BASOPHILS RELATIVE PERCENT (BEAKER) (test 0 % opmp=864) NEUTROPHILS ABSOLUTE COUNT (BEAKER) (test 9.20 K/ L 1.78-5.38 ifro=055) LYMPHOCYTES ABSOLUTE COUNT (BEAKER) (test 1.78 K/ L 1.32-3.57 ajxq=827) MONOCYTES ABSOLUTE COUNT (BEAKER) (test 0.82 K/ L 0.30-0.82 wtyv=202) EOSINOPHILS ABSOLUTE COUNT (BEAKER) (test 0.12 K/ L 0.04-0.54 srkc=111) BASOPHILS ABSOLUTE COUNT (BEAKER) (test 0.04 K/ L 0.01-0.08 yiwx=938) IMMATURE GRANULOCYTES-RELATIVE PERCENT (BEAKER) 0 % 0-1 (test vajt=5700) EEG MONITORING WITH VIDEO RECORDING EACH 24 [id number] 17:57:00DATE OF TEST : 04/16/2017DATE OF REPORT 04/16/2017 ACC: [id number]: Start time: 08: 42 Stop time: 16:42ICD-10: R56.9CPT Code: 87959IIDELSP: 51 y/o woman with history of epilepsy [...] report.Phoebe Villar MDEpilepsy Attending EEG AWAKE/ASLEEP AND [id number] 13:27:00Reason for exam:->status epilepticusDATE OF TEST: DATE OF REPORT 04/16/2017 ACC: [id number] EEart time: 08:21 Stop time: 08:42ICD-10: R56.9CPT Code: 46059PNAFYMH: 51 y/o woman with history of epilepsy [...] this report.Phoebe Villar MDEpilepsy Attending HEPATIC FUNCTION [id number] 12:59:00 Test Item Value Reference Range Comments TOTAL PROTEIN (BEAKER) (test 8.0 gm/dL 6.0-8.3 Specimen moderately hemolyzed rouc=370) ALBUMIN (BEAKER) (test 3.8 g/dL 3.5-5.0 Specimen moderately hemolyzed srpt=9853) BILIRUBIN TOTAL (BEAKER) (test 0.3 mg/dL 0.2-1.2 Specimen moderately hemolyzed eboo=219) BILIRUBIN DIRECT (BEAKER) 0.1 mg/dL 0.1-0.5 Specimen moderately hemolyzed (test nnly=191) ALKALINE PHOSPHATASE (BEAKER) 79 U/L 40-150 (test tcwy=417) AST (SGOT) (BEAKER) (test 34 U/L 5-34 Specimen moderately hemolyzed luqw=181) ALT (SGPT) (BEAKER) (test 30 U/L 6-55 Specimen moderately hptp=222) hemolyzed RAD, CHEST, 1 VIEW, NON [id number] 09:16:00Reason for exam:-> intubatedShould this be performed [...] Hernandez Verified Date/Time: 04/16/2017 09:16:32 Reading Location: [facility] Radiology Reading Room VITAMIN [id number] 07:31:00 Test Item Value Reference Range Comments VITAMIN B12 (BEAKER) (test dxdq=326) 450 pg/mL 213-816 FOLATE, [id number] 07:31:00 Test Item Value Reference Range Comments FOLATE (BEAKER) (test cwnp=330) 8.0 ng/mL >=7.0 URINALYSIS W/ [id number] 07:09:00 Test Item Value Reference Range Comments COLOR (BEAKER) (test ndrz=322) Light Yellow CLARITY (BEAKER) (test xjaa=661) Hazy SPECIFIC GRAVITY UA (BEAKER) (test pzhu=703) 1.008 1.001-1.035 PH UA (BEAKER) (test ttng=559) 6.0 5.0-8.0 PROTEIN UA (BEAKER) (test zbtz=502) 20 mg/dL Negative GLUCOSE UA (BEAKER) (test gwjq=414) 200 mg/dL Negative KETONES UA (BEAKER) (test znvi=302) Negative Negative BILIRUBIN UA (BEAKER) (test mzpq=891) Negative Negative BLOOD UA (BEAKER) (test mqoo=662) Negative Negative NITRITE UA (BEAKER) (test rkut=309) Negative Negative LEUKOCYTE ESTERASE UA (BEAKER) (test vevo=928) Negative Negative UROBILINOGEN UA (BEAKER) (test xngv=727) 0.2 mg/dL 0.2-1.0 RBC UA (BEAKER) (test blwe=263) < /HPF WBC UA (BEAKER) (test idpv=484) 1 /HPF BACTERIA (BEAKER) (test fvtf=412) Rare SQUAMOUS EPITHELIAL (BEAKER) (test vxpt=937) < /HPF HYALINE CASTS (BEAKER) (test ibds=659) 8 /LPF SOURCE(BEAKER) (test adrm=6261) [id number] 05:59:00 Test Item Value Reference Range Comments MAGNESIUM (BEAKER) (test 3.0 mg/dL 1.6-2.6 Specimen moderately hemolyzed egte=584) [id number] 05:59:00 Test Item Value Reference Range Comments PHOSPHORUS (BEAKER) (test 3.0 mg/dL 2.3-4.7 Specimen moderately hemolyzed ecxs=226) BASIC METABOLIC [id number] 05:59:00 Test Item Value Reference Range Comments SODIUM (BEAKER) (test 137 meq/L 136-145 omlq=568) POTASSIUM (BEAKER) (test 3.8 meq/L 3.5-5.1 Specimen moderately ppij=314) hemolyzed CHLORIDE (BEAKER) (test 99 meq/L 98-107 ahuq=578) CO2 (BEAKER) (test 23 meq/L 22-29 neda=740) BLOOD UREA NITROGEN 14 mg/dL 7-21 (BEAKER) (test viih=933) CREATININE (BEAKER) (test 1.48 mg/dL 0.57-1.25 Specimen moderately bhsa=015) hemolyzed GLUCOSE RANDOM (BEAKER) 386 mg/dL 70-105 (test jowz=350) CALCIUM (BEAKER) (test 8.0 mg/dL 8.4-10.2 ysry=328) EGFR (BEAKER) (test 50 mL/min/1.73 sq m ESTIMATED GFR IS NOT ubqj=8407) ACCURATE CREATININE CLEARANCE IN PREDICTING GLOMERULAR FILTRATION RATE. ESTIMATED GFR IS NOT APPLICABLE FOR DIALYSIS PATIENTS. PROTHROMBIN [id number] 05:33:00 Test Item Value Reference Range Comments PROTIME (BEAKER) (test eteg=609) 15.7 seconds 11.7-14.7 INR (BEAKER) (test bjww=647) 1.3 <=5.9 RECOMMENDED COUMADIN/WARFARIN INR THERAPY RANGESSTANDARD DOSE: 2.0 - 3.0 Includes: PROPHYLAXIS forvenous thrombosis, systemic embolization; TREATMENT for venous thrombosis and/or pulmonary embolus.HIGH RISK: Target INR is 2.5-3.5 for patients with mechanical heart valves.BLOOD GAS, [id number] 05:31:00 Test Item Value Reference Range Comments PH ARTERIAL (BEAKER) (test jivp=840) 7.34 7.35-7.45 PCO2 ARTERIAL (BEAKER) (test xmfn=010) 43 mmHg 35-45 PO2 ARTERIAL (BEAKER) (test onuk=413) 123 mmHg 80-90 O2 SATURATION ARTERIAL (BEAKER) (test sloz=091) 98.2 % 96.0-97.0 HCO3 ARTERIAL (BEAKER) (test edhn=729) 22 mmol/L 21-29 BASE EXCESS ARTERIAL (BEAKER) (test egpr=357) -3.2 mmol/L -2.0-3.0 PATIENT TEMPERATURE (BEAKER) (test opfr=0259) 37.2 C FIO2 (BEAKER) (test uuap=0559) 60.0 % CBC W/PLT COUNT & AUTO [id number] 05:08:00 Test Item Value Reference Range Comments WHITE BLOOD CELL COUNT (BEAKER) (test oztn=627) 16.2 K/ L 3.5-10.5 RED BLOOD CELL COUNT (BEAKER) (test xcex=528) 4.53 M/ L 4.63-6.08 HEMOGLOBIN (BEAKER) (test hdhr=983) 14.9 GM/DL 13.7-17.5 HEMATOCRIT (BEAKER) (test dsfz=625) 43.7 % 40.1-51.0 MEAN CORPUSCULAR VOLUME (BEAKER) (test towm=884) 96.5 fL 79.0-92.2 MEAN CORPUSCULAR HEMOGLOBIN (BEAKER) (test 32.9 pg 25.7-32.2 tghn=802) MEAN CORPUSCULAR HEMOGLOBIN CONC (BEAKER) (test 34.1 GM/DL 32.3-36.5 vkki=685) RED CELL DISTRIBUTION WIDTH (BEAKER) (test 13.2 % 11.6-14.4 vxig=761) PLATELET COUNT (BEAKER) (test utos=755) 127 K/CU MM 150-450 MEAN PLATELET VOLUME (BEAKER) (test saqz=014) 10.0 fL 9.4-12.4 NUCLEATED RED BLOOD CELLS (BEAKER) (test 0 /100 WBC 0-0 mmlp=271) NEUTROPHILS RELATIVE PERCENT (BEAKER) (test 84 % vgdq=965) LYMPHOCYTES RELATIVE PERCENT (BEAKER) (test 7 % uclc=045) MONOCYTES RELATIVE PERCENT (BEAKER) (test 9 % nnyn=454) EOSINOPHILS RELATIVE PERCENT (BEAKER) (test 0 % xssi=066) BASOPHILS RELATIVE PERCENT (BEAKER) (test 0 % xmnk=287) NEUTROPHILS ABSOLUTE COUNT (BEAKER) (test 13.58 K/ L 1.78-5.38 vrvx=246) LYMPHOCYTES ABSOLUTE COUNT (BEAKER) (test 1.06 K/ L 1.32-3.57 jvie=242) MONOCYTES ABSOLUTE COUNT (BEAKER) (test 1.38 K/ L 0.30-0.82 whdb=585) EOSINOPHILS ABSOLUTE COUNT (BEAKER) (test 0.01 K/ L 0.04-0.54 ukte=761) BASOPHILS ABSOLUTE COUNT (BEAKER) (test 0.02 K/ L 0.01-0.08 kbno=241) IMMATURE GRANULOCYTES-RELATIVE PERCENT (BEAKER) 1 % 0-1 (test kzay=5426)
[2018-08-31 12:48] LABS: Absolute Lymphocytes (CBC) 0.5 K/uL (0.7-4.9); Absolute Monocytes 0.6 K/uL (0.1-1.3); Absolute Neutrophil 10.1 K/uL (1.8-8.0); Basophils % 0.4 % (0-1.3); Eosinophils % 0.2 % (0-4.4); Hematocrit 44.8 % (39.6-49.0); Lymphocytes % 4.8 % (15.3-44.8); MPV 7.8 fL (7.6-11.3); Monocytes % 4.9 % (3.3-12.3); RBC Red Blood Cell Count 4.66 M/uL (4.33-5.43)
[2018-08-31] MEDS ORDERED: NA CHLORIDE 0.9% 1,000 ML ONE (12:51)
[2018-08-31 13:09] LABS: Albumin 3.7 g/dL (3.4-5.0); Bilirubin Total 0.4 mg/dL (0.2-1.0); Potassium 4.4 mmol/L (3.5-5.1); Protein, Total 7.7 g/dL (6.4-8.2)
[2018-08-31 13:44] LABS: Blood Morphology Comment NOT SEEN (NOT SEEN); Platelet Estimate ADEQ
[2018-08-31] MEDS ORDERED: levETIRAcetam 1,000 MG in NA CHLORIDE 0.9% 100 ML IV ONE (14:15)
[2018-08-31 15:11] LABS: Urine Blood 1+ (NEG); Urine Glucose NEGATIVE (NEG); Urine Protein 2+ (NEG); Urine pH 5.5 (5.0-7.0)
--- NOTE | 2018-08-31 15:57 | ER ---
Nurse's Notes [facility] Name: Karlos Leblanc Age: 52 yrs Sex: Male : 1965 Arrival Date: 08/31/2018 Time: 11:53 Bed 16 Private MD: Diagnosis: Epilepsy and recurrent seizures Presentation: 08/31 11:55 Presenting complaint: EMS states: toned out for seizure pt was postictal on scene, em while en route to facility pt had a second seizure, was given Ativan 2 mg IV, pt responsive to painful stimuli, blood noted in mouth. Transition of care: patient was not received from another setting of care. Onset of symptoms was August 31, 2018. Risk Assessment: Do you want to hurt yourself or someone else? Unable to obtain. Initial Sepsis Screen: Does the patient meet any 2 criteria? HR > 90 bpm. Does the patient have a suspected source of infection? No. Patient's initial sepsis screen is negative. Care prior to arrival: Medication(s) given: Ativan 2 mg. 11:55 Method Of Arrival: EMS: [facility] em 11:55 Acuity: KENIA 2 hb Triage Assessment: 12:00 General: Appears unkempt, Behavior is unresponsive. Pain: Unable to use pain scale. em Patient is unresponsive. Neuro: Level of Consciousness is post ictal. Historical: - Allergies: 12:00 NKDA; em - PMHx: 12:00 ADD/ADHD; CHF; COPD; Myocardial infarction; PVD; CVA; Seizures; em - Immunization history:: Adult Immunizations unknown. - Social history:: Smoking status: unknown. - Ebola Screening: : Unable to complete screening because patient is unresponsive. Screenin:00 Abuse screen: Denies threats or abuse. Nutritional screening: No deficits noted. em Tuberculosis screening: No symptoms or risk factors identified. Fall Risk Gait- Weak (10 pts.). Mental Status- Overestimates/Forgets Limitations (15 pts.). Total [place] Fall Scale indicates Low Risk Score (25-44 pts). Fall prevention measures have been instituted. Side Rails Up X 2 Placed close to Nursing Station Frequent Obs/Assesments occuring. Assessment: 12:00 General: Appears unkempt, Behavior is unresponsive. Neuro: Level of Consciousness is em post ictal. Cardiovascular: Heart tones S1 S2 present Capillary refill < 3 seconds Patient's skin is warm and dry. Respiratory: Airway is patent Respiratory effort is even, Respiratory pattern is regular, symmetrical. Derm: Skin is intact, Skin is pink, warm \T\ dry. 12:15 Reassessment: I agree with previous assessment. hb 12:51 Reassessment: Patient appears in no apparent distress at this time. Patient and/or em family updated on plan of care and expected duration. Pain level reassessed. Patient is alert, oriented x 3, equal unlabored respirations, skin warm/dry/pink. Patient states symptoms have improved. 14:00 Reassessment: Patient appears in no apparent distress at this time. Patient and/or em family updated on plan of care and expected duration. Pain level reassessed. Patient is alert, oriented x 3, equal unlabored respirations, skin warm/dry/pink. assisted pt with urinal, voided yellow, clear urine approx. 300 mL. 15:00 Reassessment: Patient appears in no apparent distress at this time. Patient and/or em family updated on plan of care and expected duration. Pain level reassessed. Patient is alert, oriented x 3, equal unlabored respirations, skin warm/dry/pink. Patient states feeling better. Patient states symptoms have improved. 16:10 Reassessment: Patient appears in no apparent distress at this time. Patient and/or em family updated on plan of care and expected duration. Pain level reassessed. Patient is alert, oriented x 3, equal unlabored respirations, skin warm/dry/pink. pt discharged, waiting for pt brother to come pick pt brother. 17:04 Reassessment: Patient appears in no apparent distress at this time. Patient and/or em family updated on plan of care and expected duration. Pain level reassessed. Patient is alert, oriented x 3, equal unlabored respirations, skin warm/dry/pink. 18:10 Reassessment: has notified friend (Varghese) to come pick him up, reports it will be a few em minutes. 19:21 Reassessment: Patient appears in no apparent distress at this time. Patient and/or jb4 family updated on plan of care and expected duration. Pain level reassessed. Patient is alert, oriented x 3, equal unlabored respirations, skin warm/dry/pink. Pt is waiting for his ride prior to discharge. 20:30 Reassessment: Patient appears in no apparent distress at this time. No changes from jb4 previously documented assessment. Patient and/or family updated on plan of care and expected duration. Pain level reassessed. Patient is alert, oriented x 3, equal unlabored respirations, skin warm/dry/pink. Provider notified of high blood pressure, no orders given at this time. 21:08 Reassessment: Pt attempted to call brother (Yoseph), left a voice mail. jb4 21:43 Reassessment: Patient appears in no apparent distress at this time. No changes from jb4 previously documented assessment. Patient and/or family updated on plan of care and expected duration. Pain level reassessed. 22:22 Reassessment: Patient appears in no apparent distress at this time. Patient and/or jb4 family updated on plan of care and expected duration. Pain level reassessed. Patient is alert, oriented x 3, equal unlabored respirations, skin warm/dry/pink. Attempted to call pt's brother, left a voice mail. Vital Signs: 12:00 BP 165 / 79; Pulse 125; Resp 24; Temp 99.2(A); Pulse Ox 95% on 2 lpm NC; em 12:52 BP 183 / 81; Pulse 105; Resp 24; Pulse Ox 95% on 2 lpm NC; em 14:00 BP 195 / 90; Pulse 96; Resp 18; Pulse Ox 99% on R/A; em 15:09 BP 181 / 86; Pulse 89; Resp 16; Pulse Ox 99% on R/A; Pain 0/10; em 17:04 BP 165 / 87; Pulse 79; Resp 18; Pulse Ox 99% on R/A; Pain 0/10; em 19:26 BP 179 / 92; Pulse 94; Resp 16; Pulse Ox 98% on R/A; jb4 20:30 BP 187 / 98; Pulse 83; Resp 16; Pulse Ox 96% on R/A; jb4 21:00 Temp 98.7(O); jb4 21:30 BP 173 / 81; Pulse 82; Resp 16; Pulse Ox 97% ; jb4 22:46 BP 169 / 102; Pulse 82; Resp 14; Pulse Ox 100% ; jb4 [place] Coma Score: 12:00 Eye Response: to pain(2). Verbal Response: none(1). Motor Response: withdraws from em pain(4). Total: 7. 12:52 Eye Response: spontaneous(4). Verbal Response: oriented(5). Motor Response: obeys em commands(6). Total: 15. ED Course: 11:53 Patient arrived in ED. em 12:00 Arm band placed on. em 12:00 Patient has correct armband on for positive identification. Placed in gown. Bed in low em position. Call light in reach. Side rails up X2. Seizure precautions initiated. laboratory monitor on. Pulse ox on. NIBP on. 12:00 Maintain EMS IV. Dressing intact. Good blood return noted. Site clean \T\ dry. Gauge \T\ em site: 18 LAC. 12:07 Triage completed. hb 12:09 Stevie Payne PA is PHCP. jm 12:09 Aaron Pichardo MD is Attending Physician. jm 12:20 Aureliano Hugo LVN is Primary Nurse. em 15:56 Anibal Escobar MD is Referral Physician. [facility] 16:28 No provider procedures requiring assistance completed. em 20:57 Primary Nurse role handed off by Aureliano Hugo LVN jb4 20:57 Jason Cabrera RN is Primary Nurse. jb4 22:30 IV discontinued, intact, bleeding controlled. jb4 Administered Medications: 12:51 Drug: NS 0.9% 1000 ml Route: IV; Rate: 1 bolus; Site: left antecubital; em 13:30 Follow up: IV Status: Completed infusion; IV Intake: 1000ml em 14:10 Drug: levETIRAcetam 1000 mg Route: IV; Rate: calculated rate; Site: left antecubital; em 15:32 Follow up: Response: No adverse reaction; IV Status: Completed infusion; IV Intake: em 100ml Intake: 13:30 IV: 1000ml; Total: 1000ml. em 15:32 IV: 100ml; Total: 1100ml. em Outcome: 15:56 Discharge ordered by . [facility] 22:48 Discharged to home via wheelchair. jb4 22:48 Condition: stable 22:48 Discharge instructions given to patient, Instructed on discharge instructions, follow up and referral plans. medication usage, Demonstrated understanding of instructions, follow-up care, medications, Prescriptions given X 1. 22:48 Patient left the ED. jb4 Signatures: Stevie Payne PA PA jmm Munoz, Edgar, SHOE SALESPERSON SHOE SALESPERSON em Latia Haney RN RN Jason Simms RN RN jb4 Corrections: (The following items were deleted from the chart) 22:23 20:30 Reassessment: Patient appears in no apparent distress at this time. No changes jb4 from previously documented assessment. Patient and/or family updated on plan of care and expected duration. Pain level reassessed. Patient is alert, oriented x 3, equal unlabored respirations, skin warm/dry/pink. jb4
--- NOTE | 2018-08-31 15:57 | EDPHYS ---
Physician Documentation [facility] Name: Karlos Leblanc Age: 52 yrs Sex: Male : 1965 Arrival Date: 08/31/2018 Time: 11:53 Bed 16 Private MD: ED Physician Aaron Pichardo HPI: 08/31 12:10 This 52 yrs old Male presents to ER via EMS with complaints of Seizure. jmm 12:10 The patient presents with a history of multiple seizures. Character of seizure(s): Loss jmm of consciousness: the patient experienced loss of consciousness, Motor activity: generalized. Seizure onset: just prior to arrival. Seizure Hx: Seizure medications: Keppra. Associated injury:. This is a 52 year old male with a history of CHF, COPD, SD, epilepsy that presents to the ED after 2 seizures. Patient was administered 2 mg of ativan en route. Patient is currently somnolent and responsive to painful stimuli. . Historical: - Allergies: 12:00 NKDA; em - PMHx: 12:00 ADD/ADHD; CHF; COPD; Myocardial infarction; PVD; CVA; Seizures; em - Immunization history:: Adult Immunizations unknown. - Social history:: Smoking status: unknown. - Ebola Screening: : Unable to complete screening because patient is unresponsive. ROS: 12:10 Constitutional: Negative for fever, chills, and weight loss, Cardiovascular: Negative jmm for chest pain, palpitations, and edema, Respiratory: Negative for shortness of breath, cough, wheezing, and pleuritic chest pain. 12:10 Neuro: Positive for seizure activity. 12:10 All other systems are negative. Exam: 12:10 Constitutional: This is a well developed, well nourished patient who is awake, alert, jmm and in no acute distress. 12:10 ENT: Moist Mucus Membranes Neck: Trachea midline, Supple Chest/axilla: Normal chest wall appearance and motion. 12:10 ENT: oral abrasion noted, no active bleeding appreciated. superficial laceration noted to the left side of tongue.. 12:10 Cardiovascular: Rate: tachycardic, Rhythm: regular. 12:10 Respiratory: the patient does not display signs of respiratory distress, Respirations: normal, Breath sounds: are clear throughout. 12:10 Abdomen/GI: Inspection: abdomen appears normal, Bowel sounds: normal, Palpation: abdomen is soft and non-tender. 12:10 Back: ROM is normal. 12:10 Musculoskeletal/extremity: ROM: intact in all extremities. 12:10 Skin: Appearance: Color: normal in color. 12:10 Neuro: Orientation: is normal, Mentation: is normal, Memory: is normal. 12:10 Psych: Behavior/mood is pleasant, cooperative. Vital Signs: 12:00 BP 165 / 79; Pulse 125; Resp 24; Temp 99.2(A); Pulse Ox 95% on 2 lpm NC; em 12:52 BP 183 / 81; Pulse 105; Resp 24; Pulse Ox 95% on 2 lpm NC; em 14:00 BP 195 / 90; Pulse 96; Resp 18; Pulse Ox 99% on R/A; em 15:09 BP 181 / 86; Pulse 89; Resp 16; Pulse Ox 99% on R/A; Pain 0/10; em 17:04 BP 165 / 87; Pulse 79; Resp 18; Pulse Ox 99% on R/A; Pain 0/10; em 19:26 BP 179 / 92; Pulse 94; Resp 16; Pulse Ox 98% on R/A; jb4 20:30 BP 187 / 98; Pulse 83; Resp 16; Pulse Ox 96% on R/A; jb4 21:00 Temp 98.7(O); jb4 21:30 BP 173 / 81; Pulse 82; Resp 16; Pulse Ox 97% ; jb4 22:46 BP 169 / 102; Pulse 82; Resp 14; Pulse Ox 100% ; jb4 [place] Coma Score: 12:00 Eye Response: to pain(2). Verbal Response: none(1). Motor Response: withdraws from em pain(4). Total: 7. 12:52 Eye Response: spontaneous(4). Verbal Response: oriented(5). Motor Response: obeys em commands(6). Total: 15. MDM: 12:10 Patient medically screened. riya 15:55 Data reviewed: vital signs, nurses notes. Counseling: I had a detailed discussion with nirmal the patient and/or guardian regarding: the historical points, exam findings, and any diagnostic results supporting the discharge/admit diagnosis, the need for outpatient follow up, to return to the emergency department if symptoms worsen or persist or if there are any questions or concerns that arise at home. 16:13 ED course: After approx 1 hour, patient became alert. Patient has no complaints and [facility] state he feels well. Patient states he has been taking keppra as directed. Patient is able to tolerate PO in the ED. HR came down after IVF. Patient was administered 1 gram of keppra IV. Patient states he will follow up with Dr. Escobar and take keppra as directed. Patient was otherwise given strict return precautions. Patient understood and agrees with the plan of care. . 08/31 12:18 Order name: CBC with Diff; Complete Time: 14:23 [facility] 08/31 12:18 Order name: CMP; Complete Time: 13:12 [facility] 08/31 12:53 Order name: Manual Differential; Complete Time: 14:23 [facility] 08/31 14:42 Order name: Urine Dipstick--Ancillary (enter results); Complete Time: 15:23 [facility] 08/31 12:18 Order name: Saline Lock; Complete Time: 12:51 [facility] 08/31 12:18 Order name: Urine Dipstick-Ancillary (obtain specimen); Complete Time: 14:41 [facility] 08/31 12:18 Order name: EKG - Nurse/Tech; Complete Time: 12:51 [facility] Administered Medications: 12:51 Drug: NS 0.9% 1000 ml Route: IV; Rate: 1 bolus; Site: left antecubital; em 13:30 Follow up: IV Status: Completed infusion; IV Intake: 1000ml em 14:10 Drug: levETIRAcetam 1000 mg Route: IV; Rate: calculated rate; Site: left antecubital; em 15:32 Follow up: Response: No adverse reaction; IV Status: Completed infusion; IV Intake: em 100ml Disposition: 08/31/18 15:56 Discharged to Home. Impression: Epilepsy and recurrent seizures. - Condition is Stable. - Discharge Instructions: Seizure, Adult. - Prescriptions for Keppra 500 mg Oral Tablet - take 1 tablet by ORAL route every 12 hours; 20 tablet. - Medication Reconciliation Form, Thank You Letter, Antibiotic Education, Prescription Opioid Use form. - Follow up: Anibal Escobar MD; When: 1 - 2 days; Reason: Recheck today's complaints, Continuance of care, Re-evaluation by your physician. Addendum: 09/02/2018 07:59 Co-signature as Attending Physician, Aaron Pichardo MD I agree with the assessment and c gutiérrez plan of care. Signatures: Dispatcher [employer] Aaron Schumacher MD MD cha Mickail, Joel, PA PA Aureliano Tariq, TOBACCO PACKING MACHINE OPERATOR TOBACCO PACKING MACHINE OPERATOR em Jason Cabrera, RN RN jb4 Corrections: (The following items were deleted from the chart) 08/31 22:48 15:56 08/31/2018 15:56 Discharged to Home. Impression: Epilepsy and recurrent seizures. jb4 Condition is Stable. Forms are Medication Reconciliation Form, Thank You Letter, Antibiotic Education, Prescription Opioid Use. Follow up: Anibal Escobar; When: 1 - 2 days; Reason: Recheck today's complaints, Continuance of care, Re-evaluation by your physician. nirmal
[2018-08-31 23:18] VITALS: TEMP 98.7
[2018-08-31 23:20] VITALS: BP 169/102; O2SAT 100
--- NOTE | 2018-09-03 11:32 | EKG ---
Test Date: 2018-08-31 Test Time: 11:53:33 Tension Machine Operator: CONNOR MEASUREMENT RESULTS: Intervals: Rate: 121 DC: 142 QRSD: 94 QT: 328 QTc: 465 [place]: P: 73 DC: 142 QRS: 26 T: 55 INTERPRETIVE STATEMENTS: Sinus tachycardia with premature atrial complexes Otherwise normal ECG Compared to ECG 08/07/2018 15:08:25 Atrial premature complex(es) now present Sinus rhythm no longer present Electronically Signed On 09-01-18 10:51:15 CDT by Parveen Perry
== END 2018-08-31 22:48 | disposition home or self-care (01) ==
LOC: ER 11:49
DX: G40.802 Other epilepsy, not intractable, without status epilepticus (principal); J44.9 Chronic obstructive pulmonary disease, unspecified; I50.9 Heart failure, unspecified; I25.2 Old myocardial infarction
CPT/HCPCS: 96365; 96361; 93005; 85025; 36415; 81003; 80053; 99284; J1953; J7030

== ENCOUNTER 2018-10-12 08:02 | Emergency (ER) | payer OTHER ==
--- OUTSIDE RECORDS SUMMARY | 2018-10-12 08:04 | XMS REPORT | Clinical Summary ---
:1965 Author Organization [facility] Address [address] [place] [address] Care Team Providers Name Role Phone Unavailable [...] Not on file Results Not on fileafter 10/11/2017 Insurance Payer Benefit Plan / Subscriber ID Type Phone Address Group [employer] - [employer] MEDICARE xxxxxxxx [facility] Contracted [phone] MEDICARE MGD HMO POS 233491 [place] [address]
--- OUTSIDE RECORDS SUMMARY | 2018-10-12 08:14 | XMS REPORT | Continuity of Care Document ---
:1965 Author Organization Interface Problems Problem Status Onset Classification Date Comments Source Date Reported ANEMIA Active 04/04/20 The 16 [place] Discharge 03/14/20 03/17/2016 The Diagnosis: Acute 16 [place] on chronic renal failure Discharge 03/14/20 03/17/2016 The Diagnosis: Anemia 16 [place] Discharge 03/14/20 03/17/2016 The Diagnosis: [address] [place] [address] Post-operative pain Discharge 03/14/20 03/17/2016 The Diagnosis: Acute 16 [place] hypokalemia OTHER Active 03/13/20 The 16 [place] FOOT GANGRENE Active 01/31/20 The 16 [place] LEFT FOOT SORES Active 01/31/20 The 16 [place] Discharge 02/17/20 02/19/2015 The Diagnosis: 15 [place] Hyperlipidemia Discharge 02/17/20 02/19/2015 The Diagnosis: 15 [place] Hypertension Discharge 02/17/20 02/19/2015 The Diagnosis: Angina 15 [place] pectoris CHEST PAIN Active 02/16/20 The 15 [place] CP Active 02/16/20 The 15 [place] Discharge 02/10/20 02/12/2015 The Diagnosis: Wrist 15 [place] sprain LEFT WRIST PAIN Active 02/10/20 The 15 [place] Discharge 01/24/20 01/26/2015 The Diagnosis: 15 [place] Epileptic seizure, generalized Discharge 01/24/20 01/26/2015 The Diagnosis: 15 [place] Cerebral seizure AMS Active 01/24/20 The 15 [place] WOUND INFECTION V Active 10/21/19 The NECFAS;CHRONIC 14 [place] OSTEOMY Acute Active Problem 04/08/2016 The osteomyelitis [place] CHF - Congestive Active Problem 04/08/2016 The heart failure [place] HTN (<span Active Problem 04/08/2016 The ID="[id number]"> [place] Confirmed</span>) Bronchitis Active Problem 04/08/2016 [place] COPD Active Problem 04/08/2016 [place] Nose bleed Active Problem 04/08/2016 [place] Seizure Active Problem 04/08/2016 [place] H/O candidiasis Active Problem 04/08/2016 [place] H/O amputation of Active Problem 04/08/2016 The lesser toe [place] Hx of peripheral Active Problem 04/08/2016 The vascular disease [place] BPH (<span Active Problem 04/08/2016 The ID="[id number]" [place] >Confirmed</span> ) CELLULITIS OF Active The FOOT [place] AC Active MH The OSTEOMYELITIS-UNS [place] PEC CHEST PAIN NOS Active [place] GANGRENE, NOT Active The ELSEWHERE [place] CLASSIFIED ANEMIA, Active The UNSPECIFIED [place] Medications Medication Details Route Status Patient Ordering Order Source Instructions Provider Date Sodium Chloride IVPB, 150 Active The 0.9% IV ml/hr, PRN, 2015 [place] Start date: 04/05/16 8:00:00 [employer], Duration: 30, 1,000 ml EPINEPHrine 0.5 mg, 0.5 Active The mL, Route: 2015 [place] IVP, Drug form: INJ, PRN, PRN Other -See Comment, Start date: 04/05/16 7:22:00 [employer], Duration: 30 day, Stop date: 05/05/16 7:21:00 CSTNotes: MEDICATION WASTE Product Size: 1 mg Product Wasted: ___ mg Solu-CORTEF 100 mg, 2 mL, Active The Route: IVP2015 [place] Drug form: PDR/INJ, PRN, PRN Other -See Comment, Start date: 04/05/16 7:22:00 [employer], Duration: 30 day, Stop date: 05/05/16 7:21:00 CSTNotes: (Same as: Solu-CORTEF) Benadryl 50 mg, 1 mL, Active The Route: IVP, 2015 [place] Drug form: INJ, PRN, PRN Other -See Comment, Start date: 04/05/16 7:22:00 [employer], Duration: 30 day, Stop date: 05/05/16 7:21:00 CSTNotes: (Same as: Benadryl) Sodium Chloride IV, 0 ml/hr, Active The 0.9% IV PRN, PRN Blood 2015 [place] Transfusion, Start date: 04/05/16 7:21:00 [employer], Duration: 30, 250 ml heparin flush 500 unit, 5 Active The mL, Route: 2015 [place] IVP, Drug form: SOLN, PRN, PRN Line Flush, Start date: 04/05/16 7:21:00 [employer], Duration: 30 day, Stop date: 05/05/16 7:20:00 CSTNotes: (Same as: Heparin Lock Flush) BD Normal Saline 20 mL, Route: Active The Flush IVP, Drug 2015 [place] Form: INJ, PRN, PRN Line Flush, Start date: 04/05/16 7:21:00 [employer], Duration: 30 day, Stop date: 05/05/16 7:20:00 CSTNotes: (Same as: BD Posiflush) Benadryl 25 mg, 0.5 mL, Active The Route: IVP, 2015 [place] Drug form: INJ, Before Transfusion, PRN Blood Transfusion, Start date: 04/05/16 7:21:00 [employer], Duration: 30 day, Stop date: 05/05/16 7:20:00 CSTNotes: (Same as: Benadryl) Tylenol 650 mg, 2 tab, Active The Route: PO, 2015 [place] Drug form: TAB, Before Transfusion, PRN Blood Transfusion, Start date: 04/05/16 7:20:00 [employer], Duration: 30 day, Stop date: 05/05/16 7:19:00 CSTNotes: Do not exceed 4 gm/day. (Same as: Tylenol) Acetaminophen 325 1 tab, Route: Inactive The MG / Hydrocodone PO, Drug Form: 2015 [place] Bitartrate 5 MG TAB, Dosing Oral Tablet [[place] Weight 98.636, 5/325] kg, ONCE, STAT, Start date: 03/14/16 6:34:00 CDT, Stop date: 03/14/16 6:34:00 CDTNotes: (Same as: [place] 325/5) Do not exceed 4gm/day of acetaminophen. Acetaminophen 300 1 tab, PO, No Longer The MG / Codeine Q4H, PRN Pain, Active 2015 [place] Phosphate 30 MG X 2 day, # 12 Oral Tablet tab, 0 [Tylenol with Refill(s) Codeine #3] Zofran 4 mg, 2 mL, No Longer The Route: IVP, Active 2015 [place] Drug form: INJ, ONCE, Dosing Weight 98.636, kg, Priority: STAT, Start date: 03/13/16 23:18:00 CDT, Stop date: 03/13/16 23:18:00 CDTNotes: (Same as: Zofran) MEDICATION WASTE Product Size: 4 mg Product Wasted: ___ mg Dilaudid 0.5 mg, 0.5 No Longer The mL, Route: Active 2015 [place] IVP, Drug form: INJ, ONCE, Dosing Weight 98.636, kg, Priority: STAT, Start date: 03/13/16 23:18:00 CDT, Stop date: 03/13/16 23:18:00 CDTNotes: Same as: Dilaudid Sodium Chloride 500 mL, 500 No Longer The 0.154 MEQ/ML ml/hr, Infuse Active 2015 [place] Injectable Over: 1 hr, Solution Route: IV, 500, Drug form: INJ, ONCE, Priority: STAT, Dosing Weight 98.636 kg, Start date: 03/13/16 23:18:00 CDT, Duration: 1 doses or times, Stop date: 03/13/16 23:18:00 CDT Oxycodone 15 mg=3 tab, Active The Hydrochloride 5 MG PO, Q4H, PRN 2015 [place] Oral Tablet Pain Score 7-10, 0 Refill(s) Oxycodone 15 mg, 3 tab, Inactive The Hydrochloride 5 MG Route: PO, 2015 [place] Oral Tablet Drug form: TAB, Q4H, Dosing Weight 96.023, kg, PRN Pain Score 7-10, Start date: 02/18/16 8:43:00 CDT, Duration: 30 day, Stop date: 03/19/16 8:42:00 CDTNotes: (Same as: Roxicodone) Ceftriaxone 2 gm, Route: No Longer The IVPB, [id number], Active 2015 [place] Dosing Weight 96.023, kg, Start date: 02/17/16 15:00:00 CDT, Duration: 30 day, Stop date: 03/17/16 15:00:00 CDTNotes: (Same As: Rocephin). Use with 100 mL NS and infuse over 30 min MEDICATION WASTE Product Size: 2000 mg Product Wasted: ___ mg Albuterol 0.83 NEB, PRN, PRN Active The MG/ML Inhalant Respiratory 2015 [place] Solution Protocol, 0 Refill(s) chlorhexidine 1 appl, BATHE, Active The gluconate 40 MG/ML Q-M-W-F, 0 2015 [place] Medicated Liquid Refill(s) Soap tamsulosin 0.4 mg 0.4 mg=1 cap, Active The oral capsule PO, After 2015 [place] Dinner, 0 Refill(s) fluconazole 100 mg 200 mg=2 tab, Active The oral tablet PO, [id number], 0 2015 [place] Refill(s) pantoprazole 40 mg 40 mg=1 tab, Active The oral enteric PO, Before 2015 [place] coated tablet Breakfast, 0 Refill(s) Acetaminophen 325 1 tab, PO, Active The MG / Hydrocodone Q4H, PRN Pain 2015 [place] Bitartrate 5 MG Score 1-3, 0 Oral Tablet Refill(s) cefTRIAXone + 2 gm, Route: No Longer The sodium chloride IVPB, [id number], Active 2015 [place] 0.9% INJ 100 mL Dosing Weight 96.023, kg, Start date: 02/15/16 18:00:00 CDT, Duration: 2 day, Stop date: 02/16/16 18:00:00 CDTNotes: (Same As: Rocephin). Use with 100 mL NS and infuse over 30 min MEDICATION WASTE Product Size: 2000 mg Product Wasted: ___ mg Flomax 0.4 mg, 1 cap, No Longer The Route: PO, Active 2015 [place] Drug form: CAP, After Dinner, Dosing Weight [...] No Longer The Route: PO, Active 2015 [place] Drug form: TAB, [id number], Dosing Weight 96.023, kg, Start date: 02/12/16 16:00:00 CDT, Duration: 30 day, Stop date: 03/12/16 16:00:00 CDTNotes: (Same as: Diflucan) Dilaudid 1.5 mg, 0.75 No Longer The mL, Route: Active 2015 [place] IVP, Drug form: INJ, Q4H, Dosing Weight 96.023, kg, PRN Pain Score 7-10, Start date: 02/12/16 14:19:00 CDT, Stop date: 03/13/16 14:18:00 CDTNotes: Same as: Dilaudid gabapentin 600 mg, 2 cap, No Longer The Route: PO, Active 2015 [place] Drug form: CAP, TID, Dosing Weight 97.273, kg, Start date: 02/12/16 13:00:00 CDT, Duration: 30 day, Stop date: 03/13/16 9:00:00 CDTNotes: (Same as: Neurontin) Naloxone 0.4 mg, 1 mL, Inactive The Route: IVP, 2015 [place] Drug form: INJ, Q2MIN, Dosing Weight 96.023, kg, PRN Narcotic Reversal, Start date: 02/12/16 9:59:00 CDT, Duration: 8 doses or times, Stop date: Limited # of timesNotes: Same as Narcan Lorazepam 0.5 mg, 0.25 Inactive The mL, Route: 2015 [place] IVP, Drug form: INJ, Q20Min, Dosing Weight 96.023, kg, PRN Anxiety, Start date: 02/12/16 9:59:00 CDT, Duration: 3 doses or times, Stop date: Limited # of timesNotes: (Same as: Ativan) Ondansetron 4 mg, Route: Inactive The IVP, ONCE, 2015 [place] Dosing Weight 96.023, kg, PRN Nausea & Vomiting, Start date: 02/12/16 9:59:00 CDT Glycopyrrolate 0.2 mg, 1 mL, Inactive The Route: IVP, 2015 [place] Drug form: INJ, Q5Min, Dosing Weight 96.023, kg, PRN Bradycardia, Start date: 02/12/16 9:59:00 CDT, Duration: 3 doses or times, Stop date: Limited # of timesNotes: (Same as: [place]) Flumazenil 0.2 mg, 2 mL, Inactive The Route: IVP, 2015 [place] Drug form: INJ, PRN, Dosing Weight 96.023, kg, PRN Benzodiazepine Reversal, Initial dose, Start date: 02/12/16 9:59:00 CDT, Duration: 30 day, Stop date: 03/13/16 9:58:00 CDTNotes: (Same as: Romazicon) Fentanyl 25 microgram, Inactive The 0.5 mL, Route: 2015 [place] IVP, Drug form: INJ, Q5Min, Dosing Weight 96.023, kg, PRN Pain Score 4-6, Start date: 02/12/16 9:59:00 CDT, Duration: 4 doses or times, Stop date: Limited # of timesNotes: (Same as: Sublimaze) Preservative free. Hydralazine 10 mg, 0.5 mL, Inactive The Route: IVP, 2015 [place] Drug form: INJ, Q20Min, Dosing Weight 96.023, kg, PRN Elevated BP, Start date: 02/12/16 9:59:00 CDT, Duration: 2 doses or times, Stop date: Limited # of timesNotes: (Same as: Apresoline) Push over 5 minutes Hydromorphone 0.5 mg, 0.5 Inactive The mL, Route: 2015 [place] IVP, Drug form: INJ, Q5Min, Dosing Weight 96.023, kg, PRN Pain Score 7-10, Start date: 02/12/16 9:59:00 CDT, Duration: 4 doses or times, Stop date: Limited # of timesNotes: Same as: Dilaudid Labetalol 10 mg, 2 mL, Inactive The Route: IVP, 2015 [place] Drug form: INJ, Q5Min, Dosing Weight 96.023, kg, PRN Elevated BP, Start date: 02/12/16 9:59:00 CDT, Duration: 5 doses or times, Stop date: Limited # of times fentaNYL (ANES) Route: IV, Inactive The Drug form: 2015 [place] INJ, ONCE, Stop date: 02/12/16 8:40:00 CDT propofol (ANES) Route: IV, Inactive The Drug form: 2015 [place] INJ, ONCE, Stop date: 02/12/16 8:40:00 CDT lidocaine (ANES) Route: IV, Inactive The Drug form: 2015 [place] INJ, ONCE, Stop date: 02/12/16 8:40:00 CDT LR 1000 mL INJ Route: IV, Inactive The (ANES) Total Volume: 2015 [place] 1,000, Start date: 02/12/16 7:55:00 CDT, Stop date: 02/12/16 8:55:00 CDT Ceftriaxone 2 gm, Route: No Longer The IVPB, [id number], Active 2015 [place] Dosing Weight 96.023, kg, Start date: 02/11/16 13:00:00 CDT, Duration: 5 day, Stop date: 02/15/16 13:00:00 CDTNotes: (Same As: Rocephin). Use with 100 mL NS and infuse over 30 min MEDICATION WASTE Product Size: 2000 mg Product Wasted: ___ mg Dilaudid 1 mg, 1 mL, No Longer The Route: IVP, Active 2015 [place] Drug form: INJ, Q6H, Dosing Weight 96.023, kg, PRN Pain Score 7-10, Start date: 02/11/16 8:37:00 CDT, Duration: 30 day, Stop date: 03/12/16 8:36:00 CDTNotes: Same as: Dilaudid vancomycin 750 mg, 150 No Longer The mL, Route: Active 2015 [place] IVPB, Drug form: INJ, Q24H, Start date: 02/11/16 6:00:00 CDT, Duration: 30 day, Stop date: 03/11/16 6:00:00 CDTNotes: TIME CRITICAL MEDICATION Same as: Vancocin Infusion rate 2000 mg: infuse over 2.5 hours metoprolol 50 mg, 1 tab, No Longer The Route: PO, Active 2015 [place] Drug form: ERTAB, Daily, Start date: 02/10/16 9:00:00 CDT, Duration: 30 day, Stop date: 03/10/16 9:00:00 CDTNotes: (Same as: Toprol XL) May split tab, but do not crush. Alprazolam 1 MG 1 mg, 1 tab, No Longer The Oral Tablet Route: PO, Active 2015 [place] [Xanax] Drug form: TAB, Q12H, Dosing Weight 96.023, kg, PRN Anxiety, Start date: 02/10/16 8:19:00 CDT, Duration: 30 day, Stop date: 03/11/16 8:18:00 CDTNotes: With food or milk (Same as: Xanax) vancomycin 750 mg, 150 Inactive The mL, Route: 2015 [place] IVPB, Drug form: INJ, ONCE, Start date: 02/10/16 5:00:00 CDT, Stop date: 02/10/16 5:00:00 CDTNotes: TIME CRITICAL MEDICATION Same as: Vancocin Infusion rate 2001 mg: infuse over 2.5 hours Anoro 62.5mcg/25 Anoro No Longer The mcg 62.5mcg/25 Active 2015 [place] mcg, 1 puff, Route: INHALATION, RBID, 02/09/16 20:00:00 CDT, Duration: 30 day, Stop date: 03/10/16 8:00:00 CDT ketOROLAC 30 mg/mL 60 mg, Route: Inactive The injectable IVP, Drug 2015 [place] solution form: INJ, ONCE, Dosing Weight 96.023, kg, Start date: 02/09/16 17:40:00 CDT, Duration: 1 doses or times, Stop date: 02/09/16 17:40:00 CDT Vancomycin Dosing Vancomycin No Longer The per RPh Dosing per Active 2015 [facility], ., Drug form: MISC, Route: MISC, PRN, PRN Other -See Comment, 02/09/16 14:51:00 CDT, Duration: 30 day, Stop date: 03/10/16 14:50:00 CDT Dilaudid 1 mg, 1 mL, No Longer The Route: IVP, Active 2015 [place] Drug form: INJ, Q4H, Dosing Weight 96.023, kg, PRN Pain Score 7-10, Start date: 02/09/16 13:01:00 CDT, Duration: 30 day, Stop date: 03/10/16 13:00:00 CDTNotes: Same as: Dilaudid Sodium Chloride 500 mL, 500 Inactive The 0.154 MEQ/ML ml/hr, Infuse 2015 [place] Injectable Over: 1 hr, Solution Route: IV, 500, Drug form: INJ, ONCE, Priority: STAT, Dosing Weight 96.023 kg, Start date: 02/09/16 12:59:00 CDT, Duration: 1 doses or times, Stop date: 02/09/16 12:59:00 CDT pantoprazole 40 mg, 1 tab, No Longer The Route: PO, Active 2015 [place] Drug form: ECTAB, Before Breakfast, Dosing Weight 96.023, kg, Start date: 02/09/16 9:00:00 CDT, Stop date: 03/09/16 7:30:00 CDTNotes: Tablet should not be chewed or crushed. (Same as: Protonix) chlorhexidine 1 appl, Route: No Longer The gluconate 40 MG/ML BATHE, Active 2015 [place] Medicated Liquid Q-M-W-F, Drug Soap form: SOAP, Start date: 02/09/16 9:00:00 CDT, Duration: 30 day, Stop date: 03/08/16 9:00:00 CDTNotes: (Same As: Milla) Simvastatin 20 mg, 1 tab, No Longer The Route: PO, Active 2015 [place] Drug form: TAB, Bedtime, Dosing Weight 96.023, kg, Start date: 02/08/16 21:00:00 CDT, Duration: 30 day, Stop date: 03/08/16 21:00:00 CDTNotes: (Same as: Zocor) Cefuroxime 1.5 gm, Route: No Longer The IVPB, [id number], Active 2015 [place] Dosing Weight 96.023, kg, Start date: 02/08/16 21:00:00 CDT, Duration: 3 doses or times, Stop date: 02/09/16 13:00:00 CDT Neutra-Phos 2 pkt, Route: No Longer The PO, Drug Form: Active 2015 [place] PDR/REC, Dosing Weight 96.023, kg, PRN, PRN [...] phosphate + sodium mL, Route: Active 2015 [place] chloride 0.9% 500 IVPB, Drug ml INJ [...] phosphate + sodium mL, Route: Active 2015 [place] chloride 0.9% INJ IVPB, PRN, 250 mL Dosing Weight 96.023, kg, PRN Abnormal Lab Result, Start date: 02/08/16 20:04:00 CDT, Duration: 30 day, Stop date: 03/09/16 20:03:00 CDT, FOR ICU USE ONLYNotes: (Same as: K Phosphate.) 1 mMol phoshate has 1.47 mEq potassium Infuse over 4 hours Magnesium Oxide 800 mg, 2 tab, No Longer The Route: PO, Active 2015 [place] Drug form: TAB, PRN, Dosing Weight 96.023, kg, PRN Abnormal Lab Result, FOR ICU USE ONLY, Start date: 02/08/16 20:04:00 CDT, Duration: 30 day, Stop date: 03/09/16 20:03:00 CDTNotes: (Same as: Mag-Ox 400) Magnesium oxide 790mu=273an elemental magnesium Dose=____mg magnesium oxide (___mg elemental magnesium) Magnesium Sulfate 2 gm, 50 mL, No Longer The Route: IVPB, Active 2015 [place] Drug form: INJ, PRN, Dosing Weight 96.023, kg, PRN Abnormal Lab Result, Start date: 02/08/16 20:04:00 CDT, Duration: 30 day, Stop date: 03/09/16 20:03:00 CDT, FOR ICU USE ONLYNotes: WASTE: F/P - Sink; E - Municipal Trash Bin potassium chloride 20 mEq, 15 mL, No Longer The Route: NJ, Active 2015 [place] Drug form: LIQ, PRN, Dosing Weight 96.023, kg, PRN Abnormal Lab Result, Start date: 02/08/16 20:04:00 CDT, Duration: 30 day, Stop date: 03/09/16 20:03:00 CDT, FOR ICU USE ONLYNotes: (Same as: Potassium Chloride) sodium phosphate + 15 mmol, 5 mL, No Longer The sodium chloride Route: IVPB, Active 2015 [place] 0.9% INJ 250 mL PRN, Dosing Weight 96.023, kg, PRN Abnormal Lab Result, Start date: 02/08/16 20:04:00 CDT, Duration: 30 day, Stop date: 03/09/16 20:03:00 CDT, FOR ICU USE ONLY sodium phosphate + 45 mmol, 15 No Longer The sodium chloride mL, Route: Active 2015 [place] 0.9% 500 ml INJ IVPB, Drug 500 mL form: INJ, PRN, Dosing Weight 96.023, kg, PRN Abnormal Lab Result, Start date: 02/08/16 20:04:00 CDT, Duration: 30 day, Stop date: 03/09/16 20:03:00 CDT, FOR ICU USE ONLY Calcium Carbonate 500 mg, 1 tab, No Longer The 500 MG Chewable Route: PO, Active 2015 [place] Tablet Drug form: CHEWTAB, PRN, Dosing Weight 96.023, kg, PRN Abnormal Lab Result, FOR ICU USE ONLY, Start date: 02/08/16 20:04:00 CDT, Duration: 30 day, Stop date: 03/09/16 20:03:00 CDTNotes: (Same As: [place]) Calcium Carbonate 500 vx=025 mg elemental calcium Dose= mg calcium carbonate ( mg elemental calcium) Calcium Gluconate 1 gm, 10 mL, No Longer The Route: IVPB, Active 2015 [place] PRN, Dosing Weight 96.023, kg, PRN Abnormal Lab Result, Start date: 02/08/16 20:04:00 CDT, Duration: 30 day, Stop date: 03/09/16 20:03:00 CDT, FOR ICU USE ONLYNotes: WASTE: F/P - Sink; E - Municipal Trash Bin Albuterol 0.83 2.49 mg, 3 mL, No Longer The MG/ML Inhalant Route: NEB, Active 2015 [place] Solution Drug form: SOLN, PRN, Dosing Weight 96.023, kg, PRN Respiratory Protocol, Start date: 02/08/16 20:04:00 CDT, Duration: 30 day, Stop date: 03/09/16 20:03:00 CDTNotes: SEE RT DOCUMENTATION (Same as: Proventil) Dextrose 50% 25 gm, 50 mL, No Longer The Syringe Route: IVP, Active 2015 [place] Drug Form: INJ, Dosing Weight 96.023, kg, PRN, PRN Blood Glucose Results, Start date: 02/08/16 20:04:00 CDT, Duration: 30 day, Stop date: 03/09/16 20:03:00 CDT Docusate 100 mg, 1 cap, No Longer The Route: PO, Active 2015 [place] Drug form: CAP, BID, Dosing Weight 96.023, kg, PRN Constipation, Start date: 02/08/16 20:04:00 CDT, Duration: 30 day, Stop date: 03/09/16 20:03:00 CDTNotes: (Same as: Colace) (Do Not Crush) Glucagon 1 mg, Route: No Longer The IM, Drug form: Active 2015 [place] PDR/INJ, PRN, Dosing Weight 96.023, kg, PRN Blood Glucose Results, Start date: 02/08/16 20:04:00 CDT, Duration: 30 day, Stop date: 03/09/16 20:03:00 CDT Acetaminophen 325 2 tab, Route: No Longer The MG / Hydrocodone PO, Drug Form: Active 2015 [place] Bitartrate 5 MG TAB, Dosing Oral Tablet Weight 96.023, kg, Q4H, PRN Pain Score 4-6, Start date: 02/08/16 20:04:00 CDT, Duration: 30 day, Stop date: 03/09/16 20:03:00 CDTNotes: (Same as: [place] 325/5) Do not exceed 4gm/day of acetaminophen. Acetaminophen 650 mg, 2 tab, No Longer The Route: PO, Active 2015 [place] Drug form: TAB, Q4H, Dosing Weight 96.023, kg, PRN Pain 1-3/Temp > 100.4 F, Start date: 02/08/16 20:04:00 CDT, Duration: 30 day, Stop date: 03/09/16 20:03:00 CDTNotes: Do not exceed 4 gm/day. (Same as: Tylenol) D5W 1/2NS + KCL 1,000 mL, No Longer The 20mEq/L 1000ml Rate: 50 Active 2015 [place] (Premix) 1,000 mL ml/hr, Infuse over: 20 hr, Route: IV, Dosing Weight 96.023 kg, Total Volume: 1,000, Start date: 02/08/16 20:04:00 CDT, Duration: 30 day, Stop date: 03/09/16 20:03:00 CDTNotes: PREMIX IV - Do Not Alter WASTE: F/P - Sink; E - Municipal Trash Bin Ondansetron 4 mg, 2 mL, Inactive The Route: IVP, 2015 [place] Drug form: INJ, ONCE, Dosing Weight 96.023, kg, PRN Nausea & Vomiting, Start date: 02/08/16 9:59:00 CDTNotes: (Same as: Zofran) MEDICATION WASTE Product Size: 4 mg Product Wasted: ___ mg Promethazine 6.25 mg, 25 Inactive The mL, Route: 2015 [place] IVPB, Drug form: SOLN, ONCE, Dosing Weight 96.023, kg, PRN Nausea & Vomiting, Start date: 02/08/16 9:59:00 CDT Flumazenil 0.2 mg, 2 mL, Inactive The Route: IV2015 [place] Drug form: INJ, PRN, Dosing Weight 96.023, kg, PRN Benzodiazepine Reversal, Initial dose, Start date: 02/08/16 9:59:00 CDT, Duration: 30 day, Stop date: 03/09/16 9:58:00 CDTNotes: (Same as: Romazicon) Naloxone 0.4 mg, 1 mL, Inactive The Route: IVP, 2015 [place] Drug form: INJ, Q2MIN, Dosing Weight 96.023, kg, PRN Narcotic Reversal, Start date: 02/08/16 9:59:00 CDT, Duration: 8 doses or times, Stop date: Limited # of timesNotes: Same as Narcan Fentanyl 50 microgram, Inactive The 1 mL, Route: 2015 [place] IVP, Drug form: INJ, Q5Min, Dosing Weight 96.023, kg, PRN Pain Score 7-10, Start date: 02/08/16 9:59:00 CDT, Duration: 2 doses or times, Stop date: Limited # of timesNotes: (Same as: Sublimaze) Preservative free. Hydromorphone 1 mg, 1 mL, Inactive The Route: IVP, 2015 [place] Drug form: INJ, Q5Min, Dosing Weight 96.023, kg, PRN Pain Score 7-10, Start date: 02/08/16 9:59:00 CDT, Duration: 4 doses or times, Stop date: Limited # of timesNotes: Same as: Dilaudid Labetalol 10 mg, 2 mL, Inactive The Route: IVP, 2015 [place] Drug form: INJ, Q5Min, Dosing Weight 96.023, kg, PRN Elevated BP, Start date: 02/08/16 9:59:00 CDT, Duration: 5 doses or times, Stop date: Limited # of times ondansetron (ANES) Route: IV, Inactive The Drug form: 2015 [place] INJ, ONCE, Stop date: 02/08/16 9:40:00 CDT hydromorphone Route: IV, Inactive The (ANES) Drug form: 2015 [place] INJ, ONCE, Stop date: 02/08/16 9:15:00 CDT LR 1000 mL INJ Route: IV, Inactive The (ANES) Total Volume: 2015 [place] 1,000, Start date: 02/08/16 9:08:00 CDT, Stop date: 02/08/16 10:08:00 CDT heparin (ANES) Route: IV, Inactive The Drug form: 2015 [place] INJ, ONCE, Stop date: 02/08/16 8:55:00 CDT fentaNYL (ANES) Route: IV, Inactive The Drug form: 2015 [place] INJ, ONCE, Stop date: 02/08/16 8:40:00 CDT propofol (ANES) Route: IV, Inactive The Drug form: 2015 [place] INJ, ONCE, Stop date: 02/08/16 8:40:00 CDT lidocaine (ANES) Route: IV, Inactive The Drug form: [place] INJ, ONCE, Stop date: 02/08/16 8:40:00 CDT midazolam (ANES) Route: IV, Inactive The Drug form: [place] SOLN, ONCE, Stop date: 02/08/16 8:40:00 CDT rocuronium (ANES) Route: IV, Inactive The Drug form: 2015 [place] INJ, ONCE, Stop date: 02/08/16 8:40:00 CDT piperacillin-tazob IV, ONCE Inactive The actam (ANES) [place] famotidine (ANES) Route: IV, Inactive The Drug form: 2015 [place] INJ, ONCE, Stop date: 02/08/16 8:25:00 CDT [...] No Longer The Route: PO, Active 2015 [place] Drug form: TAB, Q4H, PRN Pain 1-3/Temp > 100.4 F, Start date: 02/07/16 10:35:00 CDT, Duration: 30 day, Stop date: 03/08/16 10:34:00 CDTNotes: (Same as: Roxicodone) oxyCODONE 10 mg 15 mg, Route: Inactive The extended release PO, Drug form: 2015 [place] ERTAB, Q6H, Start date: 02/05/16 18:00:00 CDT, Duration: 30 day, Stop date: 03/06/16 12:00:00 CDT Roxicodone 15 mg, 3 tab, No Longer The Route: PO, Active 2015 [place] Drug form: TAB, Q6Hnow, Start date: 02/05/16 15:21:00 CDT, Stop date: 03/06/16 11:00:00 CDTNotes: (Same as: Roxicodone) Dilaudid 2 mg, 1 mL, No Longer The Route: IV, Active 2015 [place] Drug form: INJ, Q2H, Dosing Weight 97.273, kg, PRN Pain Score 7-10, Start date: 02/05/16 15:04:00 CDT, Duration: 30 day, Stop date: 03/06/16 15:03:00 CDTNotes: Same as: Dilaudid sodium chloride 1,000 mL, No Longer The 0.9% 1000 ml INJ Rate: 50 Active 2015 [place] 1,000 mL ml/hr, Infuse over: 20 hr, Route: IV, Dosing Weight 97.273 kg, Total Volume: 1,000, Start date: 02/04/16 11:14:00 CDT, Stop date: 03/05/16 11:13:00 CDT vancomycin 750 mg, 150 No Longer The mL, Route: Active 2015 [place] IVPB, Drug form: INJ, [id number], Start date: 02/02/16 15:00:00 CDT, Duration: 30 day, Stop date: 03/03/16 3:00:00 CDTNotes: TIME CRITICAL MEDICATION Same as: Vancocin Infusion rate 2000 mg: infuse over 2.5 hours atorvastatin 40 mg, 1 tab, No Longer The Route: PO, Active [address] [place] [address] Drug form: TAB, Bedtime, Dosing Weight 97.273, kg, Start date: 02/01/16 21:00:00 CDT, Duration: 30 day, Stop date: 03/01/16 21:00:00 CDTNotes: (Same as: Lipitor) Vancomycin 1 ea, Route: Inactive The MISC, Dosing 2015 [place] Weight 97.273, kg, ONCALL, Start date: 02/01/16 15:00:00 CDT, Duration: 1 doses or times, Pharmacy to dose Acetaminophen 325 1 tab, Route: No Longer The MG / Hydrocodone PO, Drug Form: Active 2015 [place] Bitartrate 10 MG TAB, Dosing Oral Tablet [[place] Weight 97.273, 10/325] kg, Q6H, PRN Pain Score 4-6, Start date: 02/01/16 13:10:00 CDT, Duration: 30 day, Stop date: 03/02/16 13:09:00 CDTNotes: Do not exceed 4gm/day of acetaminophen. (Same as: [place] 325/10) Tylenol 650 mg, 2 tab, No Longer The Route: PO, Active 2015 [place] Drug form: TAB, Q6H, Dosing Weight 97.273, kg, PRN Pain Score 1-3, Start date: 02/01/16 13:02:00 CDT, Duration: 30 day, Stop date: 03/02/16 13:01:00 CDTNotes: Do not exceed 4 gm/day. (Same as: Tylenol) Vancomycin 1,000 mg, No Longer The Route: IVPB, Active 2015 [place] [id number], Dosing Weight 97.273, kg, Start date: 02/01/16 13:00:00 CDT, Stop date: 03/02/16 1:00:00 CDTNotes: TIME CRITICAL MEDICATION (Same As: Vancocin) Infusion rate 2001 mg: infuse over 2.5 hours MEDICATION WASTE Product Size: 1000 mg Product Wasted: ___ mg Zosyn 3.375 gm, No Longer The Route: IVPB, Active 2015 [place] [id number], Dosing Weight 97.273, kg, CrCl Notes: (Same as: Zosyn) Dosing based on Piperacillin component MEDICATION WASTE Product Size: 3375 mg Product Wasted: ___ mg Lisinopril 5 mg, 1 tab, No Longer The Route: PO, Active 2015 [place] Drug form: TAB, Daily, Dosing Weight 97.273, [...] Tartrate 100 MG Route: PO, Active 2015 [place] Extended Release Drug form: Tablet [Toprol] ERTAB, Daily, Start date: 02/01/16 9:00:00 CDT, Duration: 30 day, Stop date: 03/01/16 9:00:00 CDTNotes: (Same as: Toprol XL) May split tab, but do not crush. Alprazolam 2 MG 2 mg, 2 tab, No Longer The Oral Tablet Route: PO, Active 2015 [place] Drug form: TAB, BID, Dosing Weight 97.273, kg, PRN Anxiety, Start date: 02/01/16 8:23:00 CDT, Duration: 30 day, Stop date: 03/02/16 8:22:00 CDTNotes: With food or milk (Same as: Xanax) Albuterol 0.833 3 ml, Route: No Longer The MG/ML / NEB, Drug Active 2015 [place] Ipratropium Form: SOLN, [place] 0.167 Dosing Weight MG/ML Inhalant 97.273, kg, Solution PRN, PRN Respiratory Protocol, Start date: 02/01/16 8:22:00 CDT, Duration: 30 day, Stop date: 03/02/16 8:21:00 CDTNotes: (Same as: Duoneb) Zofran 4 mg, 2 mL, No Longer The Route: IVP, Active 2015 [place] Drug form: INJ, Q6H, Dosing Weight 97.273, kg, PRN Nausea, Start date: 02/01/16 1:24:00 CDT, Duration: 30 day, Stop date: 03/02/16 1:23:00 CDTNotes: (Same as: Zofran) MEDICATION WASTE Product Size: 4 mg Product Wasted: ___ mg Dilaudid 2 mg, 2 mL, No Longer The Route: IVP, Active 2015 [place] Drug form: INJ, Q4H, Dosing Weight 97.273, kg, PRN Pain Score 7-10, Start date: 02/01/16 1:23:00 CDT, Duration: 30 day, Stop date: 03/02/16 1:22:00 CDTNotes: Same as: Dilaudid Acetaminophen 300 1 tab, PO, No Longer The MG / Codeine BID, PRN pain, Active 2015 [place] Phosphate 30 MG # 28 tab, 0 Oral Tablet Refill(s) lisinopril 10 mg 10 mg=1 tab, Active The oral tablet PO, Daily, # 2015 [place] 30 tab, 0 Refill(s) metoprolol 100 mg=1 tab, Active The tartrate 100 mg PO, BID, # 60 2015 [place] oral tablet tab, 0 Refill(s) Centrum Adults 1 tab, PO, Active The oral tablet Daily, 0 2015 [place] Refill(s) doxazosin 1 mg 1 mg=1 tab, Active The oral tablet PO, Daily, # 2015 [place] 30 tab, 0 Refill(s) atorvastatin 40 mg 40 mg=1 tab, Active The oral tablet PO, Bedtime, # 2015 [place] 30 tab, 0 Refill(s) Anoro Ellipta 62.5 1 puff, Active The mcg-25 mcg INHALER, 2015 [place] inhalation powder Daily, # 1 ea, 3 Refill(s) Alprazolam 2 MG 2 mg=1 tab, Active The Oral Tablet PO, BID, PRN 2015 [place] Anxiety, # 20 tab, 0 Refill(s) Furosemide 20 MG 20 mg=1 tab, Active The Oral Tablet PO, Daily, # 2015 [place] 30 tab, 0 Refill(s) cilostazol 100 mg 100 mg=1 tab, Active The oral tablet PO, BID, # 60 2015 [place] tab, 0 Refill(s) Acetaminophen 650 mg, Route: Inactive The PO, Drug form: 2015 [place] TAB, ONCE, Dosing Weight 95, kg, Priority: STAT, Start date: 01/31/16 22:28:00 CDT, Stop date: 01/31/16 22:28:00 CDT Piperacillin / 3.375 gm, Inactive The tazobactam Route: IVPB, 2015 [place] ONCE, Dosing Weight 95, kg, Priority: STAT, Start date: 01/31/16 17:57:00 CDT, Stop date: 01/31/16 17:57:00 CDTNotes: (Same as: Zosyn) Dosing based on Piperacillin component MEDICATION WASTE Product Size: 3375 mg Product Wasted: ___ mg Vancomycin 1,000 mg, Inactive The Route: IVPB, 2015 [place] ONCE, Dosing Weight 95, kg, Priority: STAT, Start date: 01/31/16 17:57:00 CDT, Stop date: 01/31/16 17:57:00 CDT, TIME CRITICAL MEDICATIONNote s: TIME CRITICAL MEDICATION (Same As: Vancocin) Infusion rate 2001 mg: infuse over 2.5 hours MEDICATION WASTE Product Size: 1000 mg Product Wasted: ___ mg Sodium Chloride 1,000 mL, Inactive The 0.154 MEQ/ML 2,000 ml/hr, 2015 [place] Injectable Infuse Over: Solution 30 minutes, Route: IV, 1,000, Drug form: INJ, ONCE, Priority: STAT, Dosing Weight 95 kg, Start date: 01/31/16 17:04:00 CDT, Duration: 1 doses or times, Stop date: 01/31/16 17:04:00 CDT Acetaminophen 325 1 tab, Route: Inactive The MG / Hydrocodone PO, Drug Form: 2015 [place] Bitartrate 10 MG TAB, Dosing Oral Tablet [[place] Weight 95, kg, 10/325] ONCE, STAT, Start date: 01/31/16 16:57:00 CDT, Stop date: 01/31/16 16:57:00 CDTNotes: Do not exceed 4gm/day of acetaminophen. (Same as: [place] 325/10) Amlodipine 10 mg, PO, Active The Daily, 0 2015 [place] Refill(s) gabapentin 300 mg, PO, Active The BID, 0 2015 [place] Refill(s) atorvastatin 20 mg, 1 tab, Inactive The Route: PO, 2014 [place] Drug form: TAB, Bedtime, Dosing Weight 98.267, [...] 1 tab, Inactive The Route: PO, 2014 [place] Drug form: TAB, Daily, Start date: 02/16/15 9:00:00, Duration: 30 day, Stop date: 03/17/15 9:00:00Notes: (Same as: Prinivil, Zestril) metoprolol 25 mg, 1 tab, Inactive The tartrate Route: PO, 2014 [place] Drug form: TAB, Q12H, Dosing Weight 98.267, kg, Start date: 02/16/15 9:00:00, Duration: 30 day, Stop date: 03/17/15 21:00:00Notes: (Same as: Lopressor) Microzide 12.5 mg, 1 Inactive The tab, Route: 2014 [place] PO, Drug form: TAB, Daily, Start date: 02/16/15 9:00:00, Duration: 30 day, Stop date: 03/17/15 9:00:00Notes: (Same as: Hydrodiuril). Give with food. pneumococcal 0.5 mL, Route: Inactive The capsular IM, Drug Form: 2014 [place] polysaccharide INJ, Daily, type 1 vaccine / [...] The Oral Tablet tab, Route: Active 2014 [place] [Xanax] PO, Drug form: TAB, BID, Dosing Weight 98.267, kg, PRN Anxiety, Start date: 02/15/15 23:39:00, Duration: 30 day, Stop date: 03/17/15 23:38:00Notes: With food or milk (Same as: Xanax) Acetaminophen 325 1 tab, Route: No Longer The MG / Hydrocodone PO, Drug Form: Active 2014 [place] Bitartrate 5 MG TAB, Dosing Oral Tablet [[place] Weight 98.267, 5/325] kg, Q12H, PRN Pain 1-3/Temp > 100.4 F, Start date: 02/15/15 23:39:00, Duration: 30 day, Stop date: 03/17/15 23:38:00Notes: (Same as: [place] 325/5) Do not exceed 4gm/day of acetaminophen. Tessalon Perles 200 mg, 2 cap, No Longer The Route: PO, Active 2014 [place] Drug form: CAP, TID, Dosing Weight 13.636, kg, Start date: 02/15/15 20:00:00, Duration: 30 day, Stop date: 03/17/15 17:00:00Notes: (Same As: Tessalon Perles) "Do Not Crush" Acetaminophen 325 1 tab, PO, Active The MG / Hydrocodone Q12H, PRN 2014 [place] Bitartrate 5 MG Pain, # 30 Oral Tablet [[place] tab, 0 5/325] Refill(s) Alprazolam 0.25 MG 0.25 mg=1 tab, Active The Oral Tablet PO, BID, PRN 2014 [place] [Xanax] Anxiety, Stress, # 20 tab, 0 Refill(s) metoprolol 25 mg, PO, Active The tartrate BID, 0 2014 [place] Refill(s) NS 1,000 mL 1,000 mL, No Longer The Rate: 75 Active 2014 [place] ml/hr, Infuse over: 13.3 hr, Route: IV, Dosing Weight 13.636 kg, Total Volume: 1,000, Start date: 02/15/15 18:04:00, Duration: 30 day, Stop date: 03/17/15 18:03:00 Xopenex 0.63 mg, 3 mL, No Longer The Route: NEB, Active 2014 [place] Drug form: SOLN, PRN, Dosing Weight 13.636, kg, PRN Respiratory Protocol, Start date: 02/15/15 18:03:00, Duration: 30 day, Stop date: 03/17/15 18:02:00Notes: SEE RT DOCUMENTATION (Same as:Xopenex) Non-Formulary Acetaminophen 325 2 tab, Route: No Longer The MG / Hydrocodone PO, Drug Form: Active 2014 [place] Bitartrate 10 MG TAB, Dosing Oral Tablet [[place] Weight 13.636, 10/325] kg, Q4H, PRN Pain Score 4-6, Start date: 02/15/15 18:03:00, Duration: 30 day, Stop date: 03/17/15 18:02:00Notes: Do not exceed 4gm/day of acetaminophen. (Same as: [place] 325/10) Albuterol 0.833 3 ml, Route: No Longer The MG/ML / NEB, Drug Active 2014 [place] Ipratropium Form: SOLN, [place] 0.167 Dosing Weight MG/ML Inhalant 13.636, kg, Solution [DuoNeb] PRN, PRN Respiratory Protocol, Start date: 02/15/15 15:51:00, Duration: 30 day, Stop date: 03/17/15 15:50:00Notes: (Same as: Duoneb) Aspirin 324 mg, 4 tab, Inactive The Route: CHEW, 2014 [place] Drug form: CHEWTAB, ONCE, Dosing Weight 13.636, kg, Priority: STAT, Start date: 02/15/15 15:00:00, Stop date: 02/15/15 15:00:00Notes: Take with food. tramadol 100 mg=2 tab, Active The hydrochloride 50 PO, Q6H, PRN 2014 [place] MG Oral Tablet pain, X 3 day, [Ultram] # 20 tab, 0 Refill(s) Tylenol 650 mg, 2 tab, Inactive The Route: PO, 2014 [place] Drug form: TAB, ONCE, Dosing Weight 108.182, kg, Pediatric Dosing, Priority: STAT, Start date: 02/09/15 15:47:00, Stop date: 02/09/15 15:47:00Notes: Do not exceed 4 gm/day. (Same as: Tylenol) Sodium Chloride 1,000 mL, Inactive The 0.154 MEQ/ML 1,000 ml/hr, 2014 [place] Injectable Infuse Over: 1 Solution hr, Route: IV, 1,000, Drug form: INJ, ONCE, Priority: STAT, Dosing Weight 104.545 kg, Start date: 01/23/15 14:39:00, Duration: 1 doses or times, Stop date: 01/23/15 14:39:00 Saline Flush 0.9% 10 mL, Route: Inactive The IVP, Drug 2014 [place] Form: INJ, Dosing Weight 104.545, kg, PRN, PRN Line Flush, Start date: 01/23/15 14:39:00, Duration: 30 day, Stop date: 02/22/15 14:38:00Notes: preservative free. Allergies, Adverse Reactions, Alerts Substance Category Reaction Severity Reaction Status Date Comments Source type Reported morphine Assertion Drug Active The allergy [place] Immunizations Immunization Date Site Status Last Updated Comments Source Given pneumococcal Right completed Ashok The 23-valent 5 deltoid [place] vaccine Results Order Name Results Value Reference Date Interpretation Comments Source Range BLOOD BANK RBC product Product available 04/04 The RESULTS /2015 [place] (04/04/16 11:22 AM) BLOOD BANK ABO/Rh B POS 04/04 The RESULTS [place] BLOOD BANK Antibody Negative 04/04 The RESULTS [facility] [place] (04/04/16 11:20 AM) URINE AND UA <=1.0 0.1 - 1.0 03/14 The STOOL Urobilinogen mg/dL /2016 [place] URINE AND UA RBC 1 /HPF 0 [...] mMol/L 0.5 - 2.2 03/14 The Lvl [place] CHEM PANEL Procalcitoni <0.05 0.00 - 03/14 The n Lvl ng/mL 0. [place] BLOOD BANK Antibody Negative 03/14 The RESULTS [place] (03/13/16 9:07 PM) BLOOD BANK ABO/Rh B POS 03/14 The RESULTS [place] CHEM PANEL eGFR 43 03/14 Result Comment: [...] is not recommended in the following populations: [place] [id number] Individuals with unstable creatinine concentrations, including patients [...] 21 mg/dL 7 - 22 03/14 MH [place] CHEM PANEL Creatinine 1.79 mg/dL 0.50 - 03/14 MH The Lvl 1.40 [place] CHEM PANEL Alk Phos 95 unit/L 39 - 136 03/14 MH [place] CHEM PANEL Bili Total 0.3 mg/dL 0.2 - 1.3 03/14 MH [place] CHEM PANEL AST 39 unit/L 0 - 37 03/14 MH The [place] CHEM PANEL ALT 59 unit/L 0 - 65 03/14 MH The [place] CHEM PANEL Sodium Lvl 139 meq/L 135 - 145 03/14 MH The [place] CHEM PANEL Total 7.8 g/dL 6.4 - 8.4 03/14 MH The Protein [place] CHEM PANEL Albumin Lvl 2.5 g/dL 3.5 - 5.0 03/14 MH The [place] CHEM PANEL Glucose Lvl 120 mg/dL 70 - 99 03/14 MH The [place] CHEM PANEL Chloride Lvl 106 meq/L 95 - 109 03/14 MH The [place] CHEM PANEL CO2 21 meq/L 24 - 32 03/14 MH [place] CHEM PANEL Calcium Lvl 10.1 mg/dL 8.5 - 10.5 03/14 MH The [place] CHEM PANEL Potassium 3.3 meq/L 3.5 - 5.1 03/14 MH The Lvl [place] CHEM PANEL A/G Ratio 0.5 0.7 - 1.6 03/14 MH The [place] CHEM PANEL Globulin 5.3 g/dL 2.7 - 4.2 03/14 The [place] CHEM PANEL B/C Ratio 12 6 - 25 03/14 The [place] CHEM PANEL AGAP 15.3 meq/L 10.0 - 03/14 MH The 20.0 [place] HEMATOLOGY MPV 7.4 fL 7.4 - 10.4 03/14 MH The [place] HEMATOLOGY WBC 7.3 K/CMM 3.7 - 10.4 03/14 The [place] HEMATOLOGY MCV 88.5 fL 80.0 - 03/14 MH The 94.0 [place] HEMATOLOGY RBC 3.00 M/CMM 4.70 - 03/14 MH The 6. [place] HEMATOLOGY Hct 26.5 % 42.0 - 03/14 MH The 54.0 [place] HEMATOLOGY Hgb 8.8 g/dL 14.0 - 03/14 MH The 18.0 [place] HEMATOLOGY MCHC 33.1 g/dL 32.0 - 03/14 MH The 36.0 [place] HEMATOLOGY MCH 29.3 pg 27.0 - 03/14 MH The 31.0 [place] HEMATOLOGY Platelet 241 K/CMM 133 - 450 03/14 MH The [place] HEMATOLOGY RDW 15.5 % 11.5 - 03/14 MH The 14.5 [place] HEMATOLOGY Basophils # 0.1 K/CMM 0.0 - 0.2 03/14 MH The [place] HEMATOLOGY Lymphocytes 14.3 % 20.0 - 03/14 MH The 40.0 [place] HEMATOLOGY Eosinophils 1.9 % 0.0 - 4.0 03/14 MH The [place] HEMATOLOGY Segs 77.1 % 45.0 - 03/14 MH The 75.0 [place] HEMATOLOGY Monocytes 5.3 % 2.0 - 12.0 03/14 MH The [place] HEMATOLOGY Basophils 1.4 % 0.0 - 1.0 03/14 MH The [place] HEMATOLOGY Segs-Bands # 5.6 K/CMM 1.5 - 8.1 03/14 MH The [place] HEMATOLOGY Lymphocytes 1.0 K/CMM 1.0 - 5.5 03/14 MH The # [place] HEMATOLOGY Monocytes # 0.4 K/CMM 0.0 - 0.8 03/14 [place] HEMATOLOGY Eosinophils 0.1 K/CMM 0.0 - 0.5 03/14 The [place] Ext Lower Ext Lower Study: Ext Lower Venous Doppler Bilat US 03/13/2016 11: 06 PM CDT 03/13 - [facility] Venous Venous /2015 [facility] Doppler Doppler Ordering Physician: Blanche Diaz MD [...] no evidence for deep venous thrombosis. SL: [id number] Chest Chest 1view Study: Chest 1view DX 03/13/2016 11:18 PM CDT 03/13 [facility] 1view DX DX [facility] Ordering Physician: Blanche Diaz MD Clinical [...] no pneumothorax. No acute cardiopulmonary disease. SL: [id number] ANEMIA UIBC 174 ug/dl 110 - 370 02/15 The [place] ANEMIA TIBC 196 ug/dl 228 - 428 02/15 The [place] ANEMIA Iron 22 ug/dl 45 - 160 02/15 The [place] ANEMIA % S[place] Fe 11 % 12 - 57 02/15 The [place] Chest Chest 1view Clinical Indication: Fever; 02/14 - The 1view DX DX /2015 - [place] Comparison: 02/15/2015 Read by: Akil Castaneda MD [...] radiographic evidence of acute cardiopulmonary disease. SL: [id number] CHEM PANEL eGFR 57 02/14 Result Comment: [...] is not recommended in the following populations: [place] 3m2 Individuals with unstable creatinine concentrations, including [...] 14.7 meq/L 10.0 - 02/14 The . [place] CHEM PANEL Calcium Lvl 8.7 mg/dL 8.5 - 10.5 02/14 [place] CHEM PANEL CO2 24 meq/L 24 - 32 02/14 [place] CHEM PANEL Chloride Lvl 99 meq/L 95 - 109 02/14 [place] CHEM PANEL Potassium 3.7 meq/L 3.5 - 5.1 02/14 The Lvl /2015 [place] CHEM PANEL BUN 16 mg/dL 7 - 22 02/14 The [place] CHEM PANEL Glucose Lvl 128 mg/dL 70 - 99 02/14 The [place] CHEM PANEL Sodium Lvl 134 meq/L 135 - 145 02/14 The [place] CHEM PANEL Creatinine 1.42 mg/dL 0.50 - 02/14 The Lvl 1.40 [place] CHEM PANEL eGFR 51 02/13 Result Comment: [...] is not recommended in the following populations: [address] Individuals with unstable creatinine concentrations, including [...] mg/dL 0.2 - 1.3 02/13 Result Comment: [place] reviewed all results 02/14/2016 06:35 [facility] CHEM PANEL ALT 25 unit/L 0 - 65 02/13 The [place] CHEM PANEL AST 15 unit/L 0 - 37 02/13 The [place] CHEM PANEL Alk Phos 62 unit/L 39 - 136 02/13 The [place] CHEM PANEL Globulin 4.8 g/dL 2.7 - 4.2 02/13 The [place] CHEM PANEL A/G Ratio 0.5 0.7 - 1.6 02/13 The [place] CHEM PANEL Calcium Lvl 9.0 mg/dL 8.5 - 10.5 02/13 The [place] CHEM PANEL Glucose Lvl 109 mg/dL 70 - 99 02/13 The [place] CHEM PANEL CO2 24 meq/L 24 - 32 02/13 The [place] CHEM PANEL Chloride Lvl 101 meq/L 95 - 109 02/13 The [place] CHEM PANEL BUN 17 mg/dL 7 - 22 02/13 The [place] CHEM PANEL Potassium 4.1 meq/L 3.5 - 5.1 02/13 The Lvl /2015 [place] CHEM PANEL AGAP 14.1 meq/L 10.0 - 02/13 The 20.0 [place] CHEM PANEL Albumin Lvl 2.3 g/dL 3.5 - 5.0 02/13 The [place] CHEM PANEL Total 7.1 g/dL 6.4 - 8.4 02/13 The Protein /2015 [place] CHEM PANEL Creatinine 1.55 mg/dL 0.50 - 02/13 The Lvl 1.40 [place] CHEM PANEL Sodium Lvl 135 meq/L 135 - 145 02/13 The [place] CHEM PANEL B/C Ratio 11 6 - 25 02/13 The [place] HEMATOLOGY MPV 7.7 fL 7.4 - 10.4 02/13 The [place] HEMATOLOGY Hct 25.4 % 42.0 - 02/13 The 54.0 [place] HEMATOLOGY MCH 32.7 pg 27.0 - 02/13 The 31.0 [place] HEMATOLOGY MCV 96.6 fL 80.0 - 02/13 The 94.0 [place] HEMATOLOGY Platelet 296 K/CMM 133 - 450 02/13 The [place] HEMATOLOGY RDW 14.7 % 11.5 - 02/13 The 14.5 [place] HEMATOLOGY MCHC 33.8 g/dL 32.0 - 02/13 The 36.0 [place] HEMATOLOGY WBC 8.4 K/CMM 3.7 - 10.4 02/13 The [place] HEMATOLOGY Hgb 8.6 g/dL 14.0 - 02/13 The 18.0 [place] HEMATOLOGY RBC 2.63 M/CMM 4.70 - 02/13 The 6.10 [place] HEMATOLOGY Lymphocytes 1.5 K/CMM 1.0 - 5.5 02/13 The # /2015 [place] HEMATOLOGY Eosinophils 0.2 K/CMM 0.0 - 0.5 02/13 The # [place] HEMATOLOGY Monocytes # 0.8 K/CMM 0.0 - 0.8 02/13 [place] HEMATOLOGY Basophils # 0.1 K/CMM 0.0 - 0.2 02/13 [place] HEMATOLOGY Monocytes 9.9 % 2.0 - 12.0 02/13 The [place] HEMATOLOGY Lymphocytes 17.2 % 20.0 - 02/13 The 40.0 [place] HEMATOLOGY Segs 69.8 % 45.0 - 02/13 The 75.0 [place] HEMATOLOGY Eosinophils 2.2 % 0.0 - 4.0 02/13 The [place] HEMATOLOGY Segs-Bands # 5.9 K/CMM 1.5 - 8.1 02/13 [place] HEMATOLOGY Basophils 0.9 % 0.0 - 1.0 02/13 [place] TOXICOLOGY Vanco Tr 14.8 ug/ml 02/13 [place] TOXICOLOGY Vanco Tr TND TBD 02/13 [place] Foot Foot series Clinical Indication: Pain and swelling. Post surgery. The series DX DX - [place] Comparison: 01/31/2016. Read by: Samson Ramirez MD [...] post transmetatarsal amputation, as noted above. SL: [id number] CHEM PANEL Total 6.3 g/dL 6.4 - 8.4 02/12 The Protein [place] CHEM PANEL A/G Ratio 0.7 0.7 - 1.6 02/12 The [place] CHEM PANEL B/C Ratio 12 6 - 25 02/12 [place] CHEM PANEL Globulin 3.8 g/dL 2.7 - 4.2 02/12 MH The [place] CHEM PANEL AST 12 unit/L 0 - 37 02/12 MH The [place] CHEM PANEL Alk Phos 61 unit/L 39 - 136 02/12 MH The [place] CHEM PANEL Albumin Lvl 2.5 g/dL 3.5 - 5.0 02/12 MH The [place] CHEM PANEL ALT 26 unit/L 0 - 65 02/12 MH The [place] CHEM PANEL Bili Total 0.4 mg/dL 0.2 - 1.3 02/12 MH The [place] CHEM PANEL AGAP 13.5 meq/L 10.0 - 02/12 MH The 20.0 [place] CHEM PANEL eGFR 57 02/12 Result Comment: [...] is not recommended in the following populations: [address] Individuals with unstable creatinine concentrations, including [...] 27 meq/L 24 - 32 02/12 MH [place] CHEM PANEL Calcium Lvl 8.7 mg/dL 8.5 - 10.5 02/12 MH The [place] CHEM PANEL Chloride Lvl 100 meq/L 95 - 109 02/12 MH The [place] CHEM PANEL Potassium 4.5 meq/L 3.5 - 5.1 02/12 MH The [place] CHEM PANEL Creatinine 1.42 mg/dL 0.50 - 02/12 MH The Lvl 1.40 [place] CHEM PANEL Sodium Lvl 136 meq/L 135 - 145 02/12 MH The [place] CHEM PANEL Glucose Lvl 105 mg/dL 70 - 99 02/12 MH The [place] CHEM PANEL BUN 17 mg/dL 7 - 22 02/12 The [place] TOXICOLOGY Vanco Tr TND TBD 02/12 The [place] TOXICOLOGY Vanco Tr 9.3 ug/ml 02/12 The [place] CHEM PANEL Phosphorus 4.9 mg/dL 2.5 - 4.5 02/11 The [place] CHEM PANEL Magnesium 1.8 mg/dL 1.8 - 2.4 02/11 The Lvl [place] HEMATOLOGY Segs 70.5 % 45.0 - 02/11 MH The 75.0 [place] HEMATOLOGY Lymphocytes 18.0 % 20.0 - 02/11 MH The 40.0 [place] HEMATOLOGY Monocytes 9.7 % 2.0 - 12.0 02/11 The [place] HEMATOLOGY Segs-Bands # 6.4 K/CMM 1.5 - 8.1 02/11 The [place] HEMATOLOGY Lymphocytes 1.6 K/CMM 1.0 - 5.5 02/11 The # [place] HEMATOLOGY Basophils 0.5 % 0.0 - 1.0 02/11 MH The [place] HEMATOLOGY Eosinophils 1.3 % 0.0 - 4.0 02/11 MH The [place] HEMATOLOGY Monocytes # 0.9 K/CMM 0.0 - 0.8 02/11 The [place] HEMATOLOGY Eosinophils 0.1 K/CMM 0.0 - 0.5 02/11 The # [place] HEMATOLOGY Platelet 307 K/CMM 133 - 450 02/11 The [place] HEMATOLOGY MPV 6.9 fL 7.4 - 10.4 02/11 The [place] HEMATOLOGY MCHC 33.9 g/dL 32.0 - 02/11 The 36.0 [place] HEMATOLOGY RDW 15.1 % 11.5 - 02/11 MH The 14.5 [place] HEMATOLOGY RBC 2.69 M/CMM 4.70 - 02/11 MH The 6.10 [place] HEMATOLOGY MCV 96.5 fL 80.0 - 02/11 MH The 94.0 [place] HEMATOLOGY WBC 9.1 K/CMM 3.7 - 10.4 02/11 The [place] HEMATOLOGY Hgb 8.8 g/dL 14.0 - 02/11 MH The 18.0 [place] HEMATOLOGY Hct 26.0 % 42.0 - 02/11 MH The 54.0 [place] HEMATOLOGY MCH 32.7 pg 27.0 - 02/11 MH The 31.0 [place] HEMATOLOGY Segs-Bands # 7.7 K/CMM 1.5 - 8.1 02/11 The [place] HEMATOLOGY Basophils 1.5 % 0.0 - 1.0 02/11 MH The [place] HEMATOLOGY Basophils # 0.2 K/CMM 0.0 - 0.2 02/11 MH The [place] HEMATOLOGY Eosinophils 0.2 K/CMM 0.0 - 0.5 02/11 MH The # /2015 [place] HEMATOLOGY Monocytes # 1.2 K/CMM 0.0 - 0.8 02/11 MH The [place] HEMATOLOGY Segs 69.4 % 45.0 - 02/11 MH The 75.0 [place] HEMATOLOGY Monocytes 10.5 % 2.0 - 12.0 02/11 The [place] HEMATOLOGY Eosinophils 1.6 % 0.0 - 4.0 02/11 MH The [place] HEMATOLOGY Lymphocytes 1.9 K/CMM 1.0 - 5.5 02/11 MH The # /2015 [place] HEMATOLOGY Lymphocytes 17.0 % 20.0 - 02/11 MH The 40.0 [place] HEMATOLOGY Hct 28.9 % 42.0 - 02/11 MH The 54.0 [place] HEMATOLOGY MCHC 33.6 g/dL 32.0 - 02/11 The 36.0 [place] HEMATOLOGY RDW 14.6 % 11.5 - 02/11 The 14.5 [place] HEMATOLOGY MCV 96.6 fL 80.0 - 02/11 MH The 94.0 [place] HEMATOLOGY MCH 32.4 pg 27.0 - 02/11 MH The 31.0 [place] HEMATOLOGY Hgb 9.7 g/dL 14.0 - 02/11 MH The 18.0 [place] HEMATOLOGY WBC 11.1 K/CMM 3.7 - 10.4 02/11 MH The [place] HEMATOLOGY RBC 2.99 M/CMM 4.70 - 02/11 The 6.10 [place] HEMATOLOGY Platelet 360 K/CMM 133 - 450 02/11 The [place] HEMATOLOGY MPV 7.4 fL 7.4 - 10.4 02/11 The [place] TOXICOLOGY Vanco Tr 10.9 ug/ml 02/10 The [place] TOXICOLOGY Vanco Tr TND TBD 02/10 The [place] HEMATOLOGY Basophils # 0.1 K/CMM 0.0 - 0.2 02/09 The [place] TOXICOLOGY Vanco Lvl 14.1 ug/ml 02/09 The [place] HEMATOLOGY Sed Rate null 0 - 15 02/08 The [place] BLOOD BANK Antibody Negative 02/07 The RESULTS Scrn /2015 [place] (02/08/16 5:38 AM) BLOOD BANK ABO/Rh B POS 02/07 The RESULTS [place] CHEM PANEL Procalcitoni 0.11 ng/mL 0.00 - 02/07 The n Lvl 0. [place] URINE AND UA Sq Epi None Seen 02/04 The STOOL [place] URINE AND UA <=1.0 0.1 - 1.0 02/04 The STOOL Urobilinogen mg/dL [place] URINE AND UA Leuk Est Negative Negative 02/04 The STOOL /2015 [place] (02/05/16 12:36 AM) URINE AND UA Bacteria Occasional None Seen 02/04 The STOOL /HPF /HPF [place] URINE AND UA WBC 1 /HPF 0 - 5 02/04 The STOOL [place] URINE AND UA Blood Negative Negative 02/04 The STOOL /2015 [place] (02/05/16 12:36 AM) URINE AND UA Bili Negative Negative 02/04 The STOOL [place] *NA* (02/05/16 12:36 AM) URINE AND UA Nitrite Negative Negative 02/04 The STOOL /2015 [place] (02/05/16 12:36 AM) URINE AND UA Glucose Negative Negative 02/04 The STOOL mg/dL mg/dL [place] URINE AND UA Protein Negative Negative 02/04 The STOOL mg/dL mg/dL [place] URINE AND UA Turbidity Clear Clear 02/04 The STOOL /2015 [place] (02/05/16 12:36 AM) URINE AND UA pH 6.0 5.0 - 8.0 02/04 The STOOL /2015 [place] URINE AND UA Color Light Yellow Yellow 02/04 The STOOL [place] *NA* (02/05/16 12:36 AM) URINE AND UA Ketones Negative Negative 02/04 The STOOL mg/dL mg/dL /2015[place] URINE AND UA Spec Grav 1.006 <=1.030 02/04 The STOOL [place] Abdominal Abdominal Clinical Indication: Gangrene; right foot gangrene. The Aorta with Aorta with /2015 - [place] runoff CTA runoff CTA Comparison: None Read [...] 5th MCP is concerning for osteomyelitis. SL: [id number] URINE AND UA Sq Epi None Seen 01/31 The [facility] [place] URINE AND UA <=1.0 0.1 - 1.0 01/31 The STOOL Urobilinogen mg/dL [place] URINE AND UA Blood Negative Negative 01/31 The [place] (02/01/16 4:31 PM) URINE AND UA Nitrite Negative Negative 01/31 The [place] (02/01/16 4:31 PM) URINE AND UA Leuk Est Negative Negative 01/31 The [facility] [place] (02/01/16 4:31 PM) URINE AND UA WBC 1 /HPF 0 - 5 01/31 The [facility] [place] URINE AND UA Hyal Cast 3 /LPF 0 - 2 01/31 The [facility] [place] URINE AND UA pH 5.5 5.0 - 8.0 01/31 The [facility] [place] URINE AND UA Glucose Negative Negative 01/31 The STOOL mg/dL mg/dL [place] URINE AND UA Ketones Negative Negative 01/31 The STOOL mg/dL mg/dL /2015 [place] URINE AND UA Bili Negative Negative 01/31 The STOOL [place] *NA* (02/01/16 4:31 PM) URINE AND UA Protein Negative Negative 01/31 The STOOL mg/dL mg/dL /2015 [place] URINE AND UA Color Yellow Yellow 01/31 The STOOL [place] *NA* (02/01/16 4:31 PM) URINE AND UA Turbidity Clear Clear 01/31 The STOOL /2015 [place] (02/01/16 4:31 PM) URINE AND UA Spec Grav 1.007 <=1.030 01/31 The STOOL [place] URINE CHEM U Chloride 41 meq/L 01/31 The [place] URINE CHEM U Creatinine 70.40 01/31 The mg/dL [place] URINE CHEM U Sodium 38 meq/L 01/31 The [place] Retroperit Retroperiton Clinical Indication: Renal insufficiency 01/31 - The [facility] [place] Comparison: None Read by: [...] with hematuria or urinary tract infection. SL: [id number] CARDIAC Troponin-I null 0.00 - 01/30 The ENZYMES 0.40 [place] CHEM PANEL Procalcitoni 0.13 ng/mL 0.00 - 01/30 The n Lvl 0.10 [place] CHEM PANEL Lactic Acid 1.7 mMol/L 0.5 - 2.2 01/30 The Lvl /2015 [place] CHEM PANEL Bili Total 0.4 mg/dL 0.2 - 1.3 01/30 The [place] CHEM PANEL Total 7.7 g/dL 6.4 - 8.4 01/30 The Protein [place] CHEM PANEL AST 19 unit/L 0 - 37 01/30 The [place] CHEM PANEL ALT 23 unit/L 0 - 65 01/30 The [place] CHEM PANEL Alk Phos 58 unit/L 39 - 136 01/30 The [place] CHEM PANEL Albumin Lvl 2.8 g/dL 3.5 - 5.0 01/30 The [place] CHEM PANEL A/G Ratio 0.6 0.7 - 1.6 01/30 The [place] CHEM PANEL Globulin 4.9 g/dL 2.7 - 4.2 01/30 The [place] CHEM PANEL B/C Ratio 15 6 - 25 01/30 The [place] HEMATOLOGY PTT 42.4 s 22.9 - 01/30 The 35.8 [place] HEMATOLOGY PT 14.6 s 12.0 - 01/30 The 14.7 [place] HEMATOLOGY INR 1.11 0.85 - 01/30 The 1.17 [place] Ext Lower Ext Lower Clinical Indication: Right leg claudication and leg ulcer. 01/30 - The Arterial Arterial /2015 [place] Doppler Doppler [facility]: [facility] Read by: Samson Ramirez MD Dictated Date/time: 01/31/16 20:20 Electronically Signed by: Samson Ramirez MD 01/31/16 20:25 FINAL REPORT TECHNIQUE: Sonographic evaluation of the right lower extremity arteries was performed with grayscale and color Doppler imaging with standard technique. FINDINGS: RIGHT: UNION REPRESENTATIVE: Monophasic waveforms with severely decreased peak systolic velocities. SFA: Monophasic waveforms. Spectral broadening. Mildly decreased peak systolic velocities. This may be related to collateral flow. POP: Monophasic waveforms. Spectral broadening with moderately decreased peak systolic velocities. WAGE CONCILIATOR: Monophasic waveforms. Spectral broadening with severely decreased [...] or conventional angiography for complete assessment. SL: [id number] Foot Foot series Clinical Indication: Pain and swelling , status post amputation 4 years ago 01/30 The series DX /2015 [facility] Comparison: None Read by: Ky Woods [...] the right foot may be beneficial. SL: [id number] LIPIDS VLDL 77 02/16 [place] LIPIDS HDL 29 mg/dL >=61 mg/dL 02/16 The [place] LIPIDS Chol 222 mg/dL <=199 02/16 The mg/dL [place] LIPIDS CHD Risk 7.66 4.00 - 02/16 The 7.30 [place] LIPIDS Trig 384 mg/dL <=149 02/16 The mg/dL [place] LIPIDS LDL 116 mg/dL <=99 mg/dL 02/16 The (Calculated) /2014 [place] CARDIAC CK MB Index 0.8 0.0 - 2.5 02/16 The ENZYMES /2014 [place] CARDIAC CK MB 0.6 ng/mL 0.5 - 3.6 02/16 The ENZYMES /2014 [place] CARDIAC Troponin-I null 0.00 - 02/16 The ENZYMES 0.40 [place] CARDIAC Total CK 76 unit/L 12 - 191 02/16 The ENZYMES [place] CARDIAC Troponin-I null 0.00 - 02/16 MH The ENZYMES 0.40 /2014 [place] CARDIAC Total CK 89 unit/L 12 - 191 02/16 MH The ENZYMES [place] CARDIAC CK MB Index 1.0 0.0 - 2.5 02/16 MH The ENZYMES [place] CARDIAC CK MB 0.9 ng/mL 0.5 - 3.6 02/16 MH The ENZYMES [place] THYROID TSH 2.000 0.360 - 02/16 MH The PANEL uIU/mL 3.740 /2014 [place] CARDIAC CK MB Index 0.8 0.0 - 2.5 02/15 MH The ENZYMES [place] CARDIAC Troponin-I null 0.00 - 02/15 MH The ENZYMES 0.40 [place] CARDIAC Total CK 111 unit/L 12 - 191 02/15 MH The ENZYMES [place] CARDIAC CK MB 0.9 ng/mL 0.5 - 3.6 02/15 MH The ENZYMES [place] CHEM PANEL eGFR 70 02/15 Result Comment: [...] is not recommended in the following populations: [place] 3m2 Individuals with unstable creatinine concentrations, including [...] 87 unit/L 39 - 136 02/15 MH [place] CHEM PANEL AST 23 unit/L 0 - 37 02/15 MH [place] CHEM PANEL ALT 27 unit/L 0 - 65 02/15 MH The [place] CHEM PANEL Albumin Lvl 3.4 g/dL 3.5 - 5.0 02/15 The [place] CHEM PANEL Total 7.7 g/dL 6.4 - 8.4 02/15 MH The Protein [place] CHEM PANEL A/G Ratio 0.8 0.7 - 1.6 02/15 The [place] CHEM PANEL Globulin 4.3 g/dL 2.0 - 4.0 02/15 The [place] CHEM PANEL B/C Ratio 6 6 - 25 02/15 The [place] CHEM PANEL AGAP 11.8 meq/L 10.0 - 02/15 The 20.0 [place] CHEM PANEL Bili Total 0.4 mg/dL 0.2 - 1.3 02/15 The [place] CHEM PANEL Calcium Lvl 9.2 mg/dL 8.5 - 10.5 02/15 The [place] CHEM PANEL CO2 25 meq/L 24 - 32 02/15 The [place] CHEM PANEL Glucose Lvl 88 mg/dL 70 - 99 02/15 The [place] CHEM PANEL Chloride Lvl 106 meq/L 95 - 109 02/15 The [place] CHEM PANEL Potassium 4.8 meq/L 3.5 - 5.1 02/15 The Lv [place] CHEM PANEL Sodium Lvl 138 meq/L 135 - 145 02/15 The [place] CHEM PANEL Creatinine 1.2 mg/dL 0.5 - 1.4 02/15 The l [place] CHEM PANEL BUN 7 mg/dL 7 - 22 02/15 The [place] CHEM PANEL Magnesium 2.0 mg/dL 1.8 - 2.4 02/15 The Lv [place] HEMATOLOGY Eosinophils 0.4 K/CMM 0.0 - 0.5 02/15 The # [place] HEMATOLOGY Basophils # 0.0 K/CMM 0.0 - 0.2 02/15 The [place] HEMATOLOGY Segs-Bands # 4.6 K/CMM 1.5 - 8.1 02/15 The [place] HEMATOLOGY Monocytes # 0.8 K/CMM 0.0 - 0.8 02/15 The [place] HEMATOLOGY Monocytes 10.3 % 2.0 - 12.0 02/15 The [place] HEMATOLOGY Eosinophils 5.0 % 0.0 - 4.0 02/15 The [place] HEMATOLOGY Basophils 0.4 % 0.0 - 1.0 02/15 The /2014 [place] HEMATOLOGY Lymphocytes 25.7 % 20.0 - 02/15 The 40.0 /2014 [place] HEMATOLOGY Lymphocytes 2.0 K/CMM 1.0 - 5.5 02/15 The # /2014 [place] HEMATOLOGY Segs 58.6 % 45.0 - 02/15 The 75.0 [place] HEMATOLOGY INR 1.00 0.85 - 02/15 The 1.17 [place] HEMATOLOGY PT 13.5 s 12.0 - 02/15 The 14.7 [place] HEMATOLOGY PTT 33.7 s 22.9 - 02/15 The 35.8 [place] HEMATOLOGY Platelet 170 K/CMM 133 - 450 02/15 The [place] HEMATOLOGY WBC 7.8 K/CMM 3.7 - 10.4 02/15 The [place] HEMATOLOGY MCH 33.3 pg 27.0 - 02/15 The 31.0 [place] HEMATOLOGY RBC 4.62 M/CMM 4.70 - 02/15 The 6.10 [place] HEMATOLOGY MCV 97.4 fL 80.0 - 02/15 The 94.0 [place] HEMATOLOGY Hgb 15.4 g/dL 14.0 - 02/15 The 18.0 [place] HEMATOLOGY Hct 45.0 % 42.0 - 02/15 The 54.0 [place] HEMATOLOGY MCHC 34.2 g/dL 32.0 - 02/15 The 36.0 [place] HEMATOLOGY MPV 7.0 fL 7.4 - 10.4 02/15 The [place] HEMATOLOGY RDW 16.0 % 11.5 - 02/15 The 14.5 [place] Chest 2 Chest 2 NAME: REMEDIOS SANCHEZ 02/15 - The views DX views DX - [place] : 1965 SEX: M Ordering Physician: Jaciel [...] 02/09 - The complete complete DX /2014 [place] DX : 1965 SEX: M Ordering Physician: [...] U Cocaine Negative Negative 01/23 The SCREEN [place] *NA* (01/23/15 3:10 PM) DRUG U Opiate Scr Negative Negative 01/23 The [place] *NA* (01/23/15 3:10 PM) DRUG U Cannab Scr Negative Negative 01/23 The [place] *NA* (01/23/15 3:10 PM) DRUG U Phencyc Negative Negative 01/23 The SCREEN [place] *NA* (01/23/15 3:10 PM) DRUG UDS Note See Note 01/23 The [place] (01/23/15 3:10 PM) DRUG U Shoshana Scr Negative Negative 01/23 The [place] *NA* (01/23/15 3:10 PM) DRUG U Benzodia Positive Negative 01/23 The SCREEN [place] *ABN* (01/23/15 3:10 PM) DRUG U Amph Scr Negative Negative 01/23 The [place] *NA* (01/23/15 3:10 PM) URINE AND UA [...] 0.0 - 2.5 01/23 MH The ENZYMES [place] CARDIAC Troponin-I null 0.00 - 01/23 MH The ENZYMES 0.40 /2014 [place] CARDIAC Total CK 170 unit/L 12 - 191 01/23 MH The ENZYMES [place] CARDIAC CK MB 1.2 ng/mL 0.5 - 3.6 01/23 The ENZYMES [place] CHEM PANEL eGFR 54 01/23 Result Comment: [...] is not recommended in the following populations: [place] 3m2 Individuals with unstable creatinine concentrations, including [...] A/G Ratio 1.0 0.7 - 1.6 01/23 [place] CHEM PANEL AST 23 unit/L 0 - 37 01/23 The [place] CHEM PANEL Albumin Lvl 4.3 g/dL 3.5 - 5.0 01/23 [place] CHEM PANEL ALT 39 unit/L 0 - 65 01/23 The [place] CHEM PANEL Total 8.8 g/dL 6.4 - 8.4 01/23 The Protein [place] CHEM PANEL Calcium Lvl 9.3 mg/dL 8.5 - 10.5 01/23 [place] CHEM PANEL AGAP 20.5 meq/L 10.0 - 01/23 MH The 20.0 [place] CHEM PANEL Globulin 4.5 g/dL 2.0 - 4.0 01/23 [place] CHEM PANEL B/C Ratio 10 6 - 25 01/23 [place] CHEM PANEL Bili Total 0.5 mg/dL 0.2 - 1.3 01/23 MH The [place] CHEM PANEL Alk Phos 88 unit/L 39 - 136 01/23 MH The [place] CHEM PANEL Potassium 4.5 meq/L 3.5 - 5.1 01/23 MH The Lvl [place] CHEM PANEL Sodium Lvl 139 meq/L 135 - 145 01/23 The [place] CHEM PANEL CO2 17 meq/L 24 - 32 01/23 The [place] CHEM PANEL Chloride Lvl 106 meq/L 95 - 109 01/23 MH The [place] CHEM PANEL Glucose Lvl 114 mg/dL 70 - 99 01/23 MH The [place] CHEM PANEL Creatinine 1.5 mg/dL 0.5 - 1.4 01/23 MH The Lv [place] CHEM PANEL BUN 15 mg/dL 7 - 22 01/23 The [place] HEMATOLOGY Segs 89.7 % 45.0 - 01/23 MH The 75.0 [place] HEMATOLOGY Segs-Bands # 11.6 K/CMM 1.5 - 8.1 01/23 The [place] HEMATOLOGY Lymphocytes 0.8 K/CMM 1.0 - 5.5 01/23 MH The [place] HEMATOLOGY Lymphocytes 6.5 % 20.0 - 01/23 The 40.0 [place] HEMATOLOGY Monocytes 3.2 % 2.0 - 12.0 01/23 MH The [place] HEMATOLOGY Monocytes # 0.4 K/CMM 0.0 - 0.8 01/23 The [place] HEMATOLOGY Eosinophils 0.0 K/CMM 0.0 - 0.5 01/23 MH The [place] HEMATOLOGY Basophils # 0.1 K/CMM 0.0 - 0.2 01/23 MH The [place] HEMATOLOGY Eosinophils 0.2 % 0.0 - 4.0 01/23 The [place] HEMATOLOGY Basophils 0.4 % 0.0 - 1.0 01/23 The [place] HEMATOLOGY PT 14.2 s 12.0 - 01/23 MH The 14.7 [place] HEMATOLOGY INR 1.07 0.85 - 01/23 MH The 1.17 [place] HEMATOLOGY PTT 31.2 s 22.9 - 01/23 MH The 35.8 [place] HEMATOLOGY MPV 8.3 fL 7.4 - 10.4 01/23 The [place] HEMATOLOGY MCHC 32.8 g/dL 32.0 - 01/23 The 36.0 [place] HEMATOLOGY RDW 17.0 % 11.5 - 01/23 MH The 14.5 [place] HEMATOLOGY Platelet 202 K/CMM 133 - 450 01/23 The [place] HEMATOLOGY Hct 51.7 % 42.0 - 01/23 The 54.0 [place] HEMATOLOGY MCV 97.9 fL 80.0 - 01/23 The 94.0 [place] HEMATOLOGY MCH 32.1 pg 27.0 - 01/23 The 31.0 [place] HEMATOLOGY Hgb 17.0 g/dL 14.0 - 01/23 The 18.0 [place] HEMATOLOGY WBC 12.9 K/CMM 3.7 - 10.4 01/23 The [place] HEMATOLOGY RBC 5.28 M/CMM 4.70 - 01/23 The 6.10 [place] TOXICOLOGY Etoh (%) null 01/23 The [place] TOXICOLOGY Ethanol Lvl null 01/23 [place] Brain wo Brain wo Name: REMEDIOS SANCHEZ 01/23 - The contrast contrast CT /2014 [facility] CT : 1965 Read by: Tayla Thorne [...] is not recommended in the following populations: [address] Individuals with unstable creatinine concentrations, including [...] Total 0.3 mg/dL 0.2 - 1.3 11/20 [place] CHEM PANEL AST 18 unit/L 0 - 37 11/20 [place] CHEM PANEL Alk Phos 88 unit/L 39 - 136 11/20 [place] CHEM PANEL ALT 36 unit/L 0 - 65 11/20 [place] CHEM PANEL Albumin Lvl 4.0 g/dL 3.5 - 5.0 11/20 [place] CHEM PANEL Total 8.8 g/dL 6.4 - 8.4 11/20 The Protein [place] CHEM PANEL CO2 22 meq/L 24 - 32 11/20 The [place] CHEM PANEL Calcium Lvl 9.5 mg/dL 8.5 - 10.5 11/20 The [place] CHEM PANEL Chloride Lvl 103 meq/L 95 - 109 11/20 The [place] CHEM PANEL Sodium Lvl 135 meq/L 135 - 145 11/20 The [place] CHEM PANEL Potassium 4.2 meq/L 3.5 - 5.1 11/20 The Lvl [place] CHEM PANEL Creatinine 1.2 mg/dL 0.5 - 1.4 11/20 The Lvl [place] CHEM PANEL Glucose Lvl 110 mg/dL 70 - 99 11/20 4Interpretive Data: Adult reference range values reflect the clinical guidelines MH of the [place] [employer]. [place] CHEM PANEL BUN 7 mg/dL 7 - 22 11/20 The [place] CHEM PANEL Globulin 4.8 g/dL 2.0 - 4.0 11/20 The [place] CHEM PANEL A/G Ratio 0.8 0.7 - 1.6 11/20 The [place] CHEM PANEL B/C Ratio 6 6 - 25 11/20 The [place] CHEM PANEL AGAP 14.2 meq/L 10.0 - 11/20 The 20.0 [place] HEMATOLOGY Eosinophils 3.2 % 0.0 - 4.0 11/20 The [place] HEMATOLOGY Lymphocytes 16.7 % 20.0 - 11/20 The 40.0 [place] HEMATOLOGY Monocytes 6.2 % 2.0 - 12.0 11/20 The [place] HEMATOLOGY Segs 73.3 % 45.0 - 11/20 The 75.0 [place] HEMATOLOGY Basophils 0.6 % 0.0 - 1.0 11/20 The [place] HEMATOLOGY Basophils # 0.1 K/CMM 0.0 - 0.2 11/20 The [place] HEMATOLOGY Eosinophils 0.3 K/CMM 0.0 - 0.5 11/20 The # [place] HEMATOLOGY Monocytes # 0.6 K/CMM 0.0 - 0.8 11/20 The [place] HEMATOLOGY Lymphocytes 1.6 K/CMM 1.0 - 5.5 11/20 The # [place] HEMATOLOGY Segs-Bands # 6.8 K/CMM 1.5 - 8.1 11/20 The [place] HEMATOLOGY Platelet 170 K/CMM 133 - 450 11/20 The [place] HEMATOLOGY MPV 7.6 fL 7.4 - 10.4 11/20 The [place] HEMATOLOGY MCHC 33.8 g/dL 32.0 - 11/20 The 36.0 [place] HEMATOLOGY RDW 14.2 % 11.5 - 11/20 The 14. [place] HEMATOLOGY MCH 33.1 pg 27.0 - 11/20 The 31.0 [place] HEMATOLOGY MCV 97.9 fL 80.0 - 11/20 The 94.0 [place] HEMATOLOGY Hgb 14.2 g/dL 14.0 - 11/20 The 18.0 [place] HEMATOLOGY Hct 42.1 % 42.0 - 11/20 The 54.0 [place] HEMATOLOGY WBC 9.3 K/CMM 3.7 - 10.4 11/20 The [place] HEMATOLOGY RBC 4.30 M/CMM 4.70 - 11/20 The 6. [place] TOXICOLOGY Vanco Tr TND unknown 11/20 [place] TOXICOLOGY Vanco Tr 7.7 ug/ml 11/20 5Interpretive Data: Therapeutic Range: Trough: 10 - 20 ug/mL [place] Peak: 20 - 40 ug/mL Potential Toxicity: [...] is not recommended in the following populations: [place] 3m2 Individuals with unstable creatinine concentrations, including [...] 1.7 mg/dL 0.5 - 1.4 11/17 The [place] CHEM PANEL BUN 14 mg/dL 7 - 22 11/17 [place] ELECTROLYT Potassium 4.3 meq/L 3.5 - 5.1 11/17 The ES [place] HEMATOLOGY Hct 36.8 % 42.0 - 11/17 The 54.0 [place] HEMATOLOGY MCV 97.6 fL 80.0 - 11/17 The 94.0 [place] HEMATOLOGY MCH 33.2 pg 27.0 - 11/17 The 31.0 [place] HEMATOLOGY Hgb 12.5 g/dL 14.0 - 11/17 The 18.0 [place] HEMATOLOGY WBC 7.7 K/CMM 3.7 - 10.4 11/17 [place] HEMATOLOGY RBC 3.77 M/CMM 4.70 - 11/17 The 6.10 [place] HEMATOLOGY RDW 14.0 % 11.5 - 11/17 The 14. [place] HEMATOLOGY Platelet 155 K/CMM 133 - 450 11/17 [place] HEMATOLOGY MPV 7.7 fL 7.4 - 10.4 11/17 The [place] HEMATOLOGY MCHC 34.0 g/dL 32.0 - 11/17 The 36.0 [place] HEMATOLOGY Segs-Bands # 5.7 K/CMM 1.5 - 8.1 11/17 [place] HEMATOLOGY Eosinophils 4.3 % 0.0 - 4.0 11/17 The [place] HEMATOLOGY Basophils # 0.0 K/CMM 0.0 - 0.2 11/17 The [place] HEMATOLOGY Basophils 0.3 % 0.0 - 1.0 11/17 The [place] HEMATOLOGY Monocytes 5.1 % 2.0 - 12.0 11/17 [place] HEMATOLOGY Lymphocytes 16.3 % 20.0 - 11/17 The 40.0 [place] HEMATOLOGY Lymphocytes 1.2 K/CMM 1.0 - 5.5 11/17 The [place] HEMATOLOGY Eosinophils 0.3 K/CMM 0.0 - 0.5 11/17 The [place] HEMATOLOGY Monocytes # 0.4 K/CMM 0.0 - 0.8 11/17 [place] HEMATOLOGY Segs 74.0 % 45.0 - 11/17 The 75.0 [place] TOXICOLOGY Vanco Tr TND unknown 11/17 [place] TOXICOLOGY Vanco Tr 24.4 ug/ml 11/17 6Interpretive Data: Therapeutic Range: Trough: 10 - 20 ug/mL [place] Peak: 20 - 40 ug/mL Potential Toxicity: [...] is not recommended in the following populations: [place] 3m2 Individuals with unstable creatinine concentrations, including [...] 1.5 mg/dL 0.5 - 1.4 11/13 The [place] CHEM PANEL BUN 11 mg/dL 7 - 22 11/13 [place] ELECTROLYT Potassium 4.5 meq/L 3.5 - 5.1 11/13 The ES [place] HEMATOLOGY MCH 32.7 pg 27.0 - 11/13 The 31.0 [place] HEMATOLOGY MCHC 33.6 g/dL 32.0 - 11/13 The 36.0 [place] HEMATOLOGY Platelet 186 K/CMM 133 - 450 11/13 [place] HEMATOLOGY RDW 14.0 % 11.5 - 11/13 The 14.5 [place] HEMATOLOGY MPV 7.4 fL 7.4 - 10.4 11/13 The [place] HEMATOLOGY Hgb 12.2 g/dL 14.0 - 11/13 The 18.0 [place] HEMATOLOGY RBC 3.73 M/CMM 4.70 - 11/13 The 6.10 [place] HEMATOLOGY MCV 97.6 fL 80.0 - 11/13 The 94.0 [place] HEMATOLOGY Hct 36.4 % 42.0 - 11/13 The 54.0 [place] HEMATOLOGY WBC 9.7 K/CMM 3.7 - 10.4 11/13 The [place] HEMATOLOGY Basophils # 0.1 K/CMM 0.0 - 0.2 11/13 The [place] HEMATOLOGY Lymphocytes 2.0 K/CMM 1.0 - 5.5 11/13 The [place] HEMATOLOGY Monocytes # 0.7 K/CMM 0.0 - 0.8 11/13 The [place] HEMATOLOGY Eosinophils 0.4 K/CMM 0.0 - 0.5 11/13 The [place] HEMATOLOGY Basophils 0.6 % 0.0 - 1.0 11/13 The [place] HEMATOLOGY Segs-Bands # 6.6 K/CMM 1.5 - 8.1 11/13 The [place] HEMATOLOGY Lymphocytes 20.5 % 20.0 - 11/13 The 40.0 [place] HEMATOLOGY Monocytes 7.3 % 2.0 - 12.0 11/13 The [place] HEMATOLOGY Eosinophils 3.7 % 0.0 - 4.0 11/13 The [place] HEMATOLOGY Segs 67.9 % 45.0 - 11/13 The 75.0 [place] TOXICOLOGY Vanco Tr TND NA 11/13 The [place] TOXICOLOGY Vanco Tr 24.1 ug/ml 11/13 7Interpretive Data: Therapeutic Range: Trough: 10 - 20 ug/mL [place] Peak: 20 - 40 ug/mL Potential Toxicity: >80 ug/mL Vital Signs Vital Sign Value Date Comments Source Systolic (mm Hg) 84 04/05/2016 [facility] Diastolic (mm Hg) 47 04/05/2016 [facility] [place] Respitory Rate 18 04/05/2016 [place] Heart Rate 76 04/05/2016 [place] Systolic (mm Hg) 80 04/05/2016 [place] Diastolic (mm Hg) 49 04/05/2016 [place] Respitory Rate 18 04/05/2016 [place] Heart Rate 73 04/05/2016 [place] Respitory Rate 18 04/05/2016 [place] Heart Rate 72 04/05/2016 [place] Systolic (mm Hg) 79 04/05/2016 [place] Diastolic (mm Hg) 42 04/05/2016 [place] Temperature Oral (F) 97.7 F 04/05/2016 [place] Temperature Oral (F) 97.7 F 04/05/2016 [place] Temperature Oral (F) 98.2 F 04/05/2016 [place] Weight 98.6 04/05/2016 [place] BMI Calculated 28.81 04/05/2016 [place] Height 185 cm 04/05/2016 [place] Respitory Rate 18 03/14/2016 [place] Systolic (mm Hg) 119 03/14/2016 [place] Diastolic (mm Hg) 63 03/14/2016 [place] Systolic (mm Hg) 124 03/14/2016 [place] Diastolic (mm Hg) 58 03/14/2016 [place] Respitory Rate 16 03/14/2016 [place] Temperature Oral (F) 98.8 F 03/14/2016 [place] Respitory Rate 18 03/14/2016 [place] Systolic (mm Hg) 129 03/14/2016 [place] Diastolic (mm Hg) 62 03/14/2016 [place] Temperature Oral (F) 98.7 F 03/14/2016 [place] Heart Rate 95 03/14/2016 [place] BMI Calculated 28.69 03/13/2016 [place] Weight 98.636 03/13/2016 [place] Temperature Oral (F) 98.6 F 03/13/2016 [place] Height 185.42 cm 03/13/2016 [place] Heart Rate 105 03/13/2016 [place] Heart Rate 111 02/18/2016 [place] Temperature Oral (F) 98.8 F 02/18/2016 [place] Respitory Rate 18 02/18/2016 [facility] [place] Systolic (mm Hg) 110 02/18/2016 MH [place] Diastolic (mm Hg) 56 02/18/2016 [place] Temperature Oral (F) 98.3 F 02/18/2016 MH [place] Heart Rate 97 02/18/2016 MH [place] Systolic (mm Hg) 94 02/18/2016 [facility] [place] Diastolic (mm Hg) 56 02/18/2016 [facility] [place] Respitory Rate 18 02/18/2016 [place] Temperature Oral (F) 98.2 F 02/18/2016 [place] Heart Rate 86 02/18/2016 [facility] [place] Systolic (mm Hg) 112 02/18/2016 [facility] [place] Diastolic (mm Hg) 54 02/18/2016 [facility] [place] Respitory Rate 18 02/18/2016 [place] Weight 96.023 02/08/2016 [place] BMI Calculated 28.69 02/08/2016 MH [place] Weight 98.636 02/08/2016 [facility] [place] Height 185.42 cm 02/08/2016 [facility] [place] Weight 97.273 02/01/2016 [facility] [place] BMI Calculated 28.29 02/01/2016 [facility] [place] Height 185.42 cm 02/01/2016 [facility] [place] Height 185.42 cm 01/31/2016 [facility] [place] BMI Calculated 27.63 01/31/2016 [facility] [place] Respitory Rate 16 02/16/2015 [place] Temperature Oral (F) 98.0 F 02/16/2015 [place] Respitory Rate 18 02/16/2015 [place] Heart Rate 77 02/16/2015 [facility] [place] Systolic (mm Hg) 175 02/16/2015 [facility] [place] Diastolic (mm Hg) 94 02/16/2015 [facility] [place] Temperature Oral (F) 98.2 F 02/16/2015 [facility] [place] Heart Rate 74 02/16/2015 [facility] [place] Systolic (mm Hg) 164 02/16/2015 [facility] [place] Diastolic (mm Hg) 89 02/16/2015 [place] Respitory Rate 18 02/16/2015 [place] Temperature Oral (F) 97.5 F 02/16/2015 [facility] [place] Systolic (mm Hg) 145 02/16/2015 [facility] [place] Diastolic (mm Hg) 83 02/16/2015 [facility] [place] Heart Rate 72 02/16/2015 [facility] [place] Height 185.42 cm 02/16/2015 [facility] [place] BMI Calculated 28.58 02/16/2015 [facility] [place] Weight 98.267 02/16/2015 MH [place] Weight 13.636 02/15/2015 [facility] [place] BMI Calculated 3.97 02/15/2015 [facility] [place] Height 185.42 cm 02/15/2015 [place] Temperature Oral (F) 98.2 F 02/09/2015 MH [place] Heart Rate 88 02/09/2015 MH [place] Respitory Rate 18 02/09/2015 [facility] [place] Systolic (mm Hg) 173 02/09/2015 [facility] [place] Diastolic (mm Hg) 82 02/09/2015 [place] BMI Calculated 31.47 02/09/2015 MH [place] Weight 108.182 02/09/2015 [place] Height 185.42 cm 02/09/2015 [facility] [place] Systolic (mm Hg) 189 02/09/2015 [facility] [place] Diastolic (mm Hg) 97 02/09/2015 [place] Heart Rate 77 02/09/2015 [facility] [place] Respitory Rate 16 02/09/2015 [facility] [place] Systolic (mm Hg) 172 01/23/2015 [facility] [place] Diastolic (mm Hg) 79 01/23/2015 [facility] [place] Systolic (mm Hg) 174 01/23/2015 [facility] [place] Diastolic (mm Hg) 92 01/23/2015 [place] Systolic (mm Hg) 184 01/23/2015 [facility] [place] Diastolic (mm Hg) 86 01/23/2015 [place] Respitory Rate 18 01/23/2015 [place] Weight 104.545 01/23/2015 [facility] [place] Height 185.42 cm 01/23/2015 [place] BMI Calculated 30.41 01/23/2015 [facility] [place] Respitory Rate 18 01/23/2015 [place] Heart Rate 92 01/23/2015 [place] Temperature Oral (F) 98.5 F 01/23/2015 [place] Encounters Location Location Encounter Encounter Reason Attending ADM DC Status Source Details Type Number For Provider Date Date Visit [facility] [id number] Nabeel 10/31 11/30 [facility] /2013 [facility] EC Emergency [id number] Edozie 01/23 01/23 [facility] Lsiandra /2014 [facility] EC Emergency [id number] Az Baxley 02/09 02/09 [facility] /2014 [facility] OBS [id number] Juan 02/15 02/16 [facility]2014 [facility] Inpatient [id number] Abbas 01/30 02/17 [facility] /2015 [facility] Emergency [id number] Blanche 03/13 03/14 [facility] Diaz /2015 [facility] Outpatient [id number] Abb 04/05 04/06 [facility] /2015 [facility] Procedures Procedure Code Date Perfomer Comments Source Amputation of toe [id number] [facility] Amputation of [id number] 2 toes The toe<sup>1</sup> [place] Blood transfusion [id number] [facility]
--- OUTSIDE RECORDS SUMMARY | 2018-10-12 08:18 | XMS REPORT ---
:1965 Author Organization [facility] Address [address] [place] [address] Dr. Monsivais [address] [place] [id number] Care Team Providers Name Role Phone VICTOR [...] Value Reference Range Comments CULTURE (BEAKER) (test mxlu=1606) No growth in 5 days STOOL CULTURE + SHIGA [id number] 09:59:00 Test Item Value Reference Range Comments CULTURE (BEAKER) (test No Salmonella, Shigella or ojpp=6111) Campylobacter isolated STOOL PATH [id number] 09:01:00 Test Item Value Reference Range Comments PATHOGEN EXAM CHARGED (BEAKER) (test xclp=3983) Done BASIC METABOLIC [id number] 06:59:00 Test Item Value Reference Range Comments SODIUM (BEAKER) (test 137 meq/L 136-145 ysnk=731) POTASSIUM (BEAKER) (test 3.6 meq/L 3.5-5.1 vzon=464) CHLORIDE (BEAKER) (test 110 meq/L 98-107 pkan=074) CO2 (BEAKER) (test 16 meq/L 22-29 tbjs=177) BLOOD UREA NITROGEN 18 mg/dL 7-21 (BEAKER) (test gccb=813) CREATININE (BEAKER) (test 2.02 mg/dL 0.57-1.25 dwhk=603) GLUCOSE RANDOM (BEAKER) 91 mg/dL 70-105 (test nxmf=027) CALCIUM (BEAKER) (test 9.3 mg/dL 8.4-10.2 aeku=868) EGFR (BEAKER) (test 35 mL/min/1.73 sq m ESTIMATED GFR IS NOT qcdg=2899) ACCURATE CREATININE CLEARANCE IN PREDICTING GLOMERULAR FILTRATION RATE. ESTIMATED GFR IS NOT APPLICABLE FOR DIALYSIS PATIENTS. SHIGA TOXIN [id number] 15:48:00 Test Item Value Reference Range Comments SHIGA TOXIN 1 (BEAKER) (test qzla=0166) Not detected Not detected SHIGA TOXIN 2 (BEAKER) (test pjmc=4972) Not detected Not detected CLOSTRIDIUM DIFFICILE TOXIN [id number] 15:13:00 Test Item Value Reference Range Comments CLOSTRIDIUM DIFFICILE TOXIN, PCR (BEAKER) (test Not Detected Not Detected pfpu=3865) This qualitative real-time polymerase chain reaction assay [...] a positive result is not recommended.BLOOD GAS, [id number] 11:03:00 Test Item Value Reference Range Comments PH ARTERIAL (BEAKER) (test qsbs=417) 7.38 7.35-7.45 PCO2 ARTERIAL (BEAKER) (test lrst=331) 28 mmHg 35-45 PO2 ARTERIAL (BEAKER) (test izxt=607) 95 mmHg 80-90 O2 SATURATION ARTERIAL (BEAKER) (test onib=587) 97.4 % 96.0-97.0 HCO3 ARTERIAL (BEAKER) (test emvm=623) 16 mmol/L 21-29 BASE EXCESS ARTERIAL (BEAKER) (test hjlq=923) -7.2 mmol/L -2.0-3.0 PATIENT TEMPERATURE (BEAKER) (test sbvz=4501) 36.5 C FIO2 (BEAKER) (test ipjl=9256) 21.0 % BASIC METABOLIC [id number] 05:14:00 Test Item Value Reference Range Comments SODIUM (BEAKER) (test 136 meq/L 136-145 rprs=527) POTASSIUM (BEAKER) (test 3.9 meq/L 3.5-5.1 ehbn=246) CHLORIDE (BEAKER) (test 111 meq/L 98-107 ysci=702) CO2 (BEAKER) (test 13 meq/L 22-29 ewcn=123) BLOOD UREA NITROGEN 20 mg/dL 7-21 (BEAKER) (test wodo=372) CREATININE (BEAKER) (test 2.70 mg/dL 0.57-1.25 rznf=731) GLUCOSE RANDOM (BEAKER) 77 mg/dL 70-105 (test ptpt=110) CALCIUM (BEAKER) (test 9.3 mg/dL 8.4-10.2 yiqr=085) EGFR (BEAKER) (test 25 mL/min/1.73 sq m ESTIMATED GFR IS NOT myqm=3248) ACCURATE CREATININE CLEARANCE IN PREDICTING GLOMERULAR FILTRATION RATE. ESTIMATED GFR IS NOT APPLICABLE FOR DIALYSIS PATIENTS. PTH, [id number] 05:03:00 Test Item Value Reference Range Comments PARATHYROID HORMONE INTACT (BEAKER) (test 41.8 pg/mL 8.5-72.5 onol=095) BASIC METABOLIC [id number] 07:10:00 Test Item Value Reference Range Comments SODIUM (BEAKER) (test 136 meq/L 136-145 giiy=311) POTASSIUM (BEAKER) (test 3.4 meq/L 3.5-5.1 vupw=848) CHLORIDE (BEAKER) (test 109 meq/L 98-107 hixb=544) CO2 (BEAKER) (test 15 meq/L 22-29 ldkz=142) BLOOD UREA NITROGEN 23 mg/dL 7-21 (BEAKER) (test xzys=578) CREATININE (BEAKER) (test 3.91 mg/dL 0.57-1.25 nnrw=274) GLUCOSE RANDOM (BEAKER) 79 mg/dL 70-105 (test ekvg=614) CALCIUM (BEAKER) (test 8.9 mg/dL 8.4-10.2 ggpf=155) EGFR (BEAKER) (test 16 mL/min/1.73 sq m ESTIMATED GFR IS NOT kyix=6723) ACCURATE CREATININE CLEARANCE IN PREDICTING GLOMERULAR FILTRATION RATE. ESTIMATED GFR IS NOT APPLICABLE FOR DIALYSIS PATIENTS. SODIUM, RANDOM [id number] 06:58:00 Test Item Value Reference Range Comments SODIUM URINE (BEAKER) (test qkpg=469) 65 meq/L Reference Range: No NormalsPROTHROMBIN [id number] 06:47:00 Test Item Value Reference Range Comments PROTIME (BEAKER) (test zesp=586) 14.5 seconds 11.7-14.7 INR (BEAKER) (test tbmk=523) 1.1 <=5.9 RECOMMENDED COUMADIN/WARFARIN INR THERAPY RANGESSTANDARD DOSE: 2.0 - 3.0 Includes: PROPHYLAXIS forvenous thrombosis, systemic embolization; TREATMENT for venous thrombosis and/or pulmonary embolus.HIGH RISK: Target INR is 2.5-3.5 for patients with mechanical heart valves.RAPID DRUG SCREEN, [id number] 15: 43:00 Test Item Value Reference Range Comments BARBITURATE URINE (BEAKER) (test jtag=251) Negative Negative BENZODIAZEPINE SCREEN URINE (BEAKER) (test Positive Negative ahjy=236) COCAINE (METAB.) SCREEN (BEAKER) (test yfld=2146) Negative Negative METHADONE SCREEN (BEAKER) (test inwh=8855) Negative Negative OPIATE SCREEN URINE (BEAKER) (test cxzy=046) Negative Negative CANNABINOID SCREEN URINE (BEAKER) (test wtam=449) Negative Negative AMPH/METHAMPH SCREEN (BEAKER) (test sbhe=0997) Negative Negative PHENCYCLIDINE SCREEN URINE (BEAKER) (test itgj=514) Negative Negative OXYCODONE SCREEN URINE (BEAKER) (test lyfx=2956) Negative Negative DRUG CUTOFF CONC.Cocaine 300 ng/mL Cannabinoid 50 ng/mL Benzodiazepine 200 ng/mLBarbiturate 200 ng/ mLPhencyclidine 25 ng/mLOpiate 300 ng/mLMethadone 300 ng/mLAmphetamine/ 1000 ng/mL MethamphetamineOxycodone 300 ng/mLThis assay provides an unconfirmed qualitative test result for the clinical management of patients in emergency situations. Chain of custody not maintained. Some nifu-ldh-xjzkvtn medications, as well as adulterants, may cause inaccurate results. Clinical correlation should be applied. A more comprehensive drug screen or confirmation of a detected drug may be performed upon request.URINE [id number] 14:33:00 Test Item Value Reference Range Comments CULTURE (BEAKER) (test jitm=8415) No growth BASIC METABOLIC [id number] 08:09:00 Test Item Value Reference Range Comments SODIUM (BEAKER) (test 136 meq/L 136-145 wdrc=683) POTASSIUM (BEAKER) (test 3.5 meq/L 3.5-5.1 Specimen slightly hiks=282) hemolyzed CHLORIDE (BEAKER) (test 107 meq/L 98-107 mumn=544) CO2 (BEAKER) (test 15 meq/L 22-29 gnfm=710) BLOOD UREA NITROGEN 25 mg/dL 7-21 (BEAKER) (test qqxy=158) CREATININE (BEAKER) (test 4.75 mg/dL 0.57-1.25 Specimen slightly wbix=283) hemolyzed GLUCOSE RANDOM (BEAKER) 74 mg/dL 70-105 (test swmi=845) CALCIUM (BEAKER) (test 8.5 mg/dL 8.4-10.2 huot=562) EGFR (BEAKER) (test 13 mL/min/1.73 sq m ESTIMATED GFR IS NOT yvnz=7916) ACCURATE CREATININE CLEARANCE IN PREDICTING GLOMERULAR FILTRATION RATE. ESTIMATED GFR IS NOT APPLICABLE FOR DIALYSIS PATIENTS. CBC W/PLT COUNT & AUTO [id number] 06:38:00 Test Item Value Reference Range Comments WHITE BLOOD CELL COUNT (BEAKER) (test oezq=027) 9.9 K/ L 3.5-10.5 RED BLOOD CELL COUNT (BEAKER) (test xghm=472) 4.01 M/ L 4.63-6.08 HEMOGLOBIN (BEAKER) (test blgj=228) 13.2 GM/DL 13.7-17.5 HEMATOCRIT (BEAKER) (test lfbl=682) 38.1 % 40.1-51.0 MEAN CORPUSCULAR VOLUME (BEAKER) (test vemr=663) 95.0 fL 79.0-92.2 MEAN CORPUSCULAR HEMOGLOBIN (BEAKER) (test 32.9 pg 25.7-32.2 ppwg=520) MEAN CORPUSCULAR HEMOGLOBIN CONC (BEAKER) (test 34.6 GM/DL 32.3-36.5 wail=404) RED CELL DISTRIBUTION WIDTH (BEAKER) (test 13.1 % 11.6-14.4 xeut=991) PLATELET COUNT (BEAKER) (test eocu=000) 121 K/CU MM 150-450 MEAN PLATELET VOLUME (BEAKER) (test basb=704) 10.1 fL 9.4-12.4 NUCLEATED RED BLOOD CELLS (BEAKER) (test 0 /100 WBC 0-0 eyff=953) NEUTROPHILS RELATIVE PERCENT (BEAKER) (test 73 % nycq=071) LYMPHOCYTES RELATIVE PERCENT (BEAKER) (test 17 % wqmn=096) MONOCYTES RELATIVE PERCENT (BEAKER) (test 8 % ddzx=207) EOSINOPHILS RELATIVE PERCENT (BEAKER) (test 2 % juwk=276) BASOPHILS RELATIVE PERCENT (BEAKER) (test 0 % rbwe=530) NEUTROPHILS ABSOLUTE COUNT (BEAKER) (test 7.25 K/ L 1.78-5.38 hphg=323) LYMPHOCYTES ABSOLUTE COUNT (BEAKER) (test 1.66 K/ L 1.32-3.57 flxh=611) MONOCYTES ABSOLUTE COUNT (BEAKER) (test 0.76 K/ L 0.30-0.82 ywmx=357) EOSINOPHILS ABSOLUTE COUNT (BEAKER) (test 0.19 K/ L 0.04-0.54 aqnk=588) BASOPHILS ABSOLUTE COUNT (BEAKER) (test 0.03 K/ L 0.01-0.08 udyz=634) IMMATURE GRANULOCYTES-RELATIVE PERCENT (BEAKER) 0 % 0-1 (test iocl=8880) U/S, RENAL, [id number] 22:34:00Reason for exam:->acute kidney injuryFINAL REPORT Renal [...] [place] Verified Date/Time: 2016 22:34:25 Reading Location:[facility] C0[facility] Consult Reading Room MR, BRAIN, WITHOUT [id number] 19:18:00Reason for exam:->Stroke evaluationFINAL REPORT MRI Brain [...] MDReport Verified Date/Time: 04/17/2017 19:18:34 Reading Location: [facility] Radiology Reading Room EEG MONITORING WITH VIDEO RECORDING EACH 24 [id number] 18:01:00DATE OF TEST: 04/17/2017 DATE OF REPORT 04/17/2017 ACC: [id number] EE Start time: 16:42 Stop time: 18: 44 ICD-10: R56.9 CPT Code: 85015 HISTORY: 51 y/o woman with history of [...] Shahnaz Davis MD Neurophysiology Attending URINALYSIS W/ [id number] 11:57:00 Test Item Value Reference Range Comments COLOR (BEAKER) (test vfry=112) Light Yellow CLARITY (BEAKER) (test zoet=241) Clear SPECIFIC GRAVITY UA (BEAKER) (test gljs=204) 1.006 1.001-1.035 PH UA (BEAKER) (test qtfy=907) 6.0 5.0-8.0 PROTEIN UA (BEAKER) (test olwh=299) 30 mg/dL Negative GLUCOSE UA (BEAKER) (test zohj=743) Negative Negative KETONES UA (BEAKER) (test odke=628) Negative Negative BILIRUBIN UA (BEAKER) (test cnmj=069) Negative Negative BLOOD UA (BEAKER) (test hein=615) Small Negative NITRITE UA (BEAKER) (test shbw=539) Negative Negative LEUKOCYTE ESTERASE UA (BEAKER) (test absv=736) Large Negative UROBILINOGEN UA (BEAKER) (test vtka=245) 0.2 mg/dL 0.2-1.0 RBC UA (BEAKER) (test epcx=550) 7 /HPF WBC UA (BEAKER) (test pamg=300) 21 /HPF BACTERIA (BEAKER) (test dcce=074) Occasional SQUAMOUS EPITHELIAL (BEAKER) (test ndte=526) < /HPF URIC ACID CRYSTALS (BEAKER) (test zwpd=5242) Rare SOURCE(BEAKER) (test hmrv=2761) Urine, Cooper EOSINOPHIL SMEAR, [id number] 11:56:00 Test Item Value Reference Range Comments EOSINOPHIL SMEAR, URINE (BEAKER) (test No EOS seen No EOS seen cbzt=3655) CREATININE, RANDOM [id number] 11:24:00 Test Item Value Reference Range Comments CREATININE URINE (BEAKER) (test apco=337) 69.7 mg/dL Reference Range: No NormalsSODIUM, RANDOM [id number] 11:24:00 Test Item Value Reference Range Comments SODIUM URINE (BEAKER) (test xtrp=987) 58 meq/L Reference Range: No NormalsUREA NITROGEN, RANDOM [id number] 11:24:00 Test Item Value Reference Range Comments UREA NITROGEN URINE (BEAKER) (test doqd=308) 172 mg/dL Reference Range: No NormalsCREATINE KINASE (CK)2017-04-17 11:06:00 Test Item Value Reference Range Comments CREATINE KINASE TOTAL (BEAKER) (test phsx=790) 136 U/L 29-200 BASIC METABOLIC [id number] 04:53:00 Test Item Value Reference Range Comments SODIUM (BEAKER) (test 137 meq/L 136-145 knnx=565) POTASSIUM (BEAKER) (test 3.4 meq/L 3.5-5.1 hmgk=211) CHLORIDE (BEAKER) (test 105 meq/L 98-107 ebqu=997) CO2 (BEAKER) (test 21 meq/L 22-29 omib=204) BLOOD UREA NITROGEN 19 mg/dL 7-21 (BEAKER) (test jbiu=954) CREATININE (BEAKER) (test 3.75 mg/dL 0.57-1.25 mijx=184) GLUCOSE RANDOM (BEAKER) 100 mg/dL 70-105 (test rdep=072) CALCIUM (BEAKER) (test 8.6 mg/dL 8.4-10.2 nibs=839) EGFR (BEAKER) (test 17 mL/min/1.73 sq m ESTIMATED GFR IS NOT vone=2698) ACCURATE CREATININE CLEARANCE IN PREDICTING GLOMERULAR FILTRATION RATE. ESTIMATED GFR IS NOT APPLICABLE FOR DIALYSIS PATIENTS. CBC W/PLT COUNT & AUTO [id number] 04:19:00 Test Item Value Reference Range Comments WHITE BLOOD CELL COUNT (BEAKER) (test lkuq=386) 12.0 K/ L 3.5-10.5 RED BLOOD CELL COUNT (BEAKER) (test srmi=822) 4.19 M/ L 4.63-6.08 HEMOGLOBIN (BEAKER) (test qwak=857) 13.8 GM/DL 13.7-17.5 HEMATOCRIT (BEAKER) (test dbnk=392) 40.4 % 40.1-51.0 MEAN CORPUSCULAR VOLUME (BEAKER) (test cqkd=198) 96.4 fL 79.0-92.2 MEAN CORPUSCULAR HEMOGLOBIN (BEAKER) (test 32.9 pg 25.7-32.2 gxwn=115) MEAN CORPUSCULAR HEMOGLOBIN CONC (BEAKER) (test 34.2 GM/DL 32.3-36.5 tkhh=292) RED CELL DISTRIBUTION WIDTH (BEAKER) (test 13.4 % 11.6-14.4 iofc=431) PLATELET COUNT (BEAKER) (test oyow=598) 118 K/CU MM 150-450 MEAN PLATELET VOLUME (BEAKER) (test fawi=438) 9.5 fL 9.4-12.4 NUCLEATED RED BLOOD CELLS (BEAKER) (test 0 /100 WBC 0-0 hciw=582) NEUTROPHILS RELATIVE PERCENT (BEAKER) (test 77 % hvkx=875) LYMPHOCYTES RELATIVE PERCENT (BEAKER) (test 15 % udjx=082) MONOCYTES RELATIVE PERCENT (BEAKER) (test 7 % ptsk=704) EOSINOPHILS RELATIVE PERCENT (BEAKER) (test 1 % omlp=166) BASOPHILS RELATIVE PERCENT (BEAKER) (test 0 % zmgs=039) NEUTROPHILS ABSOLUTE COUNT (BEAKER) (test 9.20 K/ L 1.78-5.38 junv=478) LYMPHOCYTES ABSOLUTE COUNT (BEAKER) (test 1.78 K/ L 1.32-3.57 rzlt=080) MONOCYTES ABSOLUTE COUNT (BEAKER) (test 0.82 K/ L 0.30-0.82 iokm=097) EOSINOPHILS ABSOLUTE COUNT (BEAKER) (test 0.12 K/ L 0.04-0.54 sysc=220) BASOPHILS ABSOLUTE COUNT (BEAKER) (test 0.04 K/ L 0.01-0.08 gkam=476) IMMATURE GRANULOCYTES-RELATIVE PERCENT (BEAKER) 0 % 0-1 (test ibjl=0218) EEG MONITORING WITH VIDEO RECORDING EACH 24 [id number] 17:57:00DATE OF TEST : 04/16/2017DATE OF REPORT 04/16/2017 ACC: [id number]: Start time: 08: 42 Stop time: 16:42ICD-10: R56.9CPT Code: 69116FORHLVL: 51 y/o woman with history of epilepsy [...] report.Phoebe Villar MDEpilepsy Attending EEG AWAKE/ASLEEP AND [id number] 13:27:00Reason for exam:->status epilepticusDATE OF TEST: DATE OF REPORT 04/16/2017 ACC: [id number] EEart time: 08:21 Stop time: 08:42ICD-10: R56.9CPT Code: 23987YENYPTM: 51 y/o woman with history of epilepsy [...] this report.Phoebe Villar MDEpilepsy Attending HEPATIC FUNCTION [id number] 12:59:00 Test Item Value Reference Range Comments TOTAL PROTEIN (BEAKER) (test 8.0 gm/dL 6.0-8.3 Specimen moderately hemolyzed vnsi=270) ALBUMIN (BEAKER) (test 3.8 g/dL 3.5-5.0 Specimen moderately hemolyzed uhvk=0890) BILIRUBIN TOTAL (BEAKER) (test 0.3 mg/dL 0.2-1.2 Specimen moderately hemolyzed fapy=558) BILIRUBIN DIRECT (BEAKER) 0.1 mg/dL 0.1-0.5 Specimen moderately hemolyzed (test gwiq=501) ALKALINE PHOSPHATASE (BEAKER) 79 U/L 40-150 (test zkov=171) AST (SGOT) (BEAKER) (test 34 U/L 5-34 Specimen moderately hemolyzed eiot=894) ALT (SGPT) (BEAKER) (test 30 U/L 6-55 Specimen moderately nrha=869) hemolyzed RAD, CHEST, 1 VIEW, NON [id number] 09:16:00Reason for exam:-> intubatedShould this be performed [...] Hernandez Verified Date/Time: 04/16/2017 09:16:32 Reading Location: [facility] Radiology Reading Room VITAMIN [id number] 07:31:00 Test Item Value Reference Range Comments VITAMIN B12 (BEAKER) (test pvvg=077) 450 pg/mL 213-816 FOLATE, [id number] 07:31:00 Test Item Value Reference Range Comments FOLATE (BEAKER) (test kyob=006) 8.0 ng/mL >=7.0 URINALYSIS W/ [id number] 07:09:00 Test Item Value Reference Range Comments COLOR (BEAKER) (test phaw=817) Light Yellow CLARITY (BEAKER) (test ixro=361) Hazy SPECIFIC GRAVITY UA (BEAKER) (test nhgj=569) 1.008 1.001-1.035 PH UA (BEAKER) (test dyqj=999) 6.0 5.0-8.0 PROTEIN UA (BEAKER) (test qhph=691) 20 mg/dL Negative GLUCOSE UA (BEAKER) (test wehu=157) 200 mg/dL Negative KETONES UA (BEAKER) (test qksj=111) Negative Negative BILIRUBIN UA (BEAKER) (test xvtg=251) Negative Negative BLOOD UA (BEAKER) (test kzfi=669) Negative Negative NITRITE UA (BEAKER) (test mclq=105) Negative Negative LEUKOCYTE ESTERASE UA (BEAKER) (test mabn=757) Negative Negative UROBILINOGEN UA (BEAKER) (test fhhc=804) 0.2 mg/dL 0.2-1.0 RBC UA (BEAKER) (test ygux=315) < /HPF WBC UA (BEAKER) (test hnko=580) 1 /HPF BACTERIA (BEAKER) (test zvdx=927) Rare SQUAMOUS EPITHELIAL (BEAKER) (test rdnj=242) < /HPF HYALINE CASTS (BEAKER) (test dlja=259) 8 /LPF SOURCE(BEAKER) (test ogsh=8804) [id number] 05:59:00 Test Item Value Reference Range Comments MAGNESIUM (BEAKER) (test 3.0 mg/dL 1.6-2.6 Specimen moderately hemolyzed dbjo=025) [id number] 05:59:00 Test Item Value Reference Range Comments PHOSPHORUS (BEAKER) (test 3.0 mg/dL 2.3-4.7 Specimen moderately hemolyzed dcyv=344) BASIC METABOLIC [id number] 05:59:00 Test Item Value Reference Range Comments SODIUM (BEAKER) (test 137 meq/L 136-145 eiwh=806) POTASSIUM (BEAKER) (test 3.8 meq/L 3.5-5.1 Specimen moderately ujjz=699) hemolyzed CHLORIDE (BEAKER) (test 99 meq/L 98-107 hkkf=604) CO2 (BEAKER) (test 23 meq/L 22-29 swfl=623) BLOOD UREA NITROGEN 14 mg/dL 7-21 (BEAKER) (test wyzw=547) CREATININE (BEAKER) (test 1.48 mg/dL 0.57-1.25 Specimen moderately ptkk=735) hemolyzed GLUCOSE RANDOM (BEAKER) 386 mg/dL 70-105 (test nqcz=627) CALCIUM (BEAKER) (test 8.0 mg/dL 8.4-10.2 nhjo=326) EGFR (BEAKER) (test 50 mL/min/1.73 sq m ESTIMATED GFR IS NOT wssb=1354) ACCURATE CREATININE CLEARANCE IN PREDICTING GLOMERULAR FILTRATION RATE. ESTIMATED GFR IS NOT APPLICABLE FOR DIALYSIS PATIENTS. PROTHROMBIN [id number] 05:33:00 Test Item Value Reference Range Comments PROTIME (BEAKER) (test igru=183) 15.7 seconds 11.7-14.7 INR (BEAKER) (test nxwu=085) 1.3 <=5.9 RECOMMENDED COUMADIN/WARFARIN INR THERAPY RANGESSTANDARD DOSE: 2.0 - 3.0 Includes: PROPHYLAXIS forvenous thrombosis, systemic embolization; TREATMENT for venous thrombosis and/or pulmonary embolus.HIGH RISK: Target INR is 2.5-3.5 for patients with mechanical heart valves.BLOOD GAS, [id number] 05:31:00 Test Item Value Reference Range Comments PH ARTERIAL (BEAKER) (test zrmy=744) 7.34 7.35-7.45 PCO2 ARTERIAL (BEAKER) (test bbhy=838) 43 mmHg 35-45 PO2 ARTERIAL (BEAKER) (test ymmk=546) 123 mmHg 80-90 O2 SATURATION ARTERIAL (BEAKER) (test bawb=497) 98.2 % 96.0-97.0 HCO3 ARTERIAL (BEAKER) (test iqty=543) 22 mmol/L 21-29 BASE EXCESS ARTERIAL (BEAKER) (test yaqg=506) -3.2 mmol/L -2.0-3.0 PATIENT TEMPERATURE (BEAKER) (test mhjw=3730) 37.2 C FIO2 (BEAKER) (test ssis=2629) 60.0 % CBC W/PLT COUNT & AUTO [id number] 05:08:00 Test Item Value Reference Range Comments WHITE BLOOD CELL COUNT (BEAKER) (test eayp=751) 16.2 K/ L 3.5-10.5 RED BLOOD CELL COUNT (BEAKER) (test uakp=512) 4.53 M/ L 4.63-6.08 HEMOGLOBIN (BEAKER) (test brlf=347) 14.9 GM/DL 13.7-17.5 HEMATOCRIT (BEAKER) (test tqkx=768) 43.7 % 40.1-51.0 MEAN CORPUSCULAR VOLUME (BEAKER) (test dtgg=673) 96.5 fL 79.0-92.2 MEAN CORPUSCULAR HEMOGLOBIN (BEAKER) (test 32.9 pg 25.7-32.2 knwi=646) MEAN CORPUSCULAR HEMOGLOBIN CONC (BEAKER) (test 34.1 GM/DL 32.3-36.5 ngcp=819) RED CELL DISTRIBUTION WIDTH (BEAKER) (test 13.2 % 11.6-14.4 xwdt=138) PLATELET COUNT (BEAKER) (test mumo=365) 127 K/CU MM 150-450 MEAN PLATELET VOLUME (BEAKER) (test ftux=639) 10.0 fL 9.4-12.4 NUCLEATED RED BLOOD CELLS (BEAKER) (test 0 /100 WBC 0-0 ptxb=333) NEUTROPHILS RELATIVE PERCENT (BEAKER) (test 84 % sqra=127) LYMPHOCYTES RELATIVE PERCENT (BEAKER) (test 7 % dybi=850) MONOCYTES RELATIVE PERCENT (BEAKER) (test 9 % nfxc=937) EOSINOPHILS RELATIVE PERCENT (BEAKER) (test 0 % gauu=689) BASOPHILS RELATIVE PERCENT (BEAKER) (test 0 % ztrz=114) NEUTROPHILS ABSOLUTE COUNT (BEAKER) (test 13.58 K/ L 1.78-5.38 vbho=035) LYMPHOCYTES ABSOLUTE COUNT (BEAKER) (test 1.06 K/ L 1.32-3.57 dqeg=415) MONOCYTES ABSOLUTE COUNT (BEAKER) (test 1.38 K/ L 0.30-0.82 llfa=303) EOSINOPHILS ABSOLUTE COUNT (BEAKER) (test 0.01 K/ L 0.04-0.54 fqwx=646) BASOPHILS ABSOLUTE COUNT (BEAKER) (test 0.02 K/ L 0.01-0.08 dwyd=439) IMMATURE GRANULOCYTES-RELATIVE PERCENT (BEAKER) 1 % 0-1 (test rjcv=3035)
[2018-10-12] MEDS ORDERED: LORazepam 2 MG/ML VIAL ONE ×2 (08:28→09:49)
[2018-10-12] MEDS ORDERED: NA CHLORIDE 0.9% 1,000 ML ONE ×2 (08:55→10:02)
[2018-10-12] MEDS ORDERED: FOSPHENYTOIN PE 1,000 MG in NA CHLORIDE 0.9% 100 ML IV ONE (09:00)
[2018-10-12 09:16] LABS: Protime INR 0.91
[2018-10-12 09:18] LABS: Barbiturates NEGATIVE (NEGATIVE); Benzodiazepines NEGATIVE (NEGATIVE); Cocaine NEGATIVE (NEGATIVE); METHAMPHETAM NEGATIVE (NEGATIVE); Methadone NEGATIVE (NEGATIVE); Opiates NEGATIVE (NEGATIVE); Phencyclidine NEGATIVE (NEGATIVE); THC Cannibis NEGATIVE (NEGATIVE)
[2018-10-12 09:18] LABS: Absolute Lymphocytes (CBC) 2.6 K/uL (0.7-4.9); Absolute Monocytes 1.3 K/uL (0.1-1.3); Absolute Neutrophil 10.3 K/uL (1.8-8.0); Basophils % 0.9 % (0-1.3); Eosinophils % 1.4 % (0-4.4); Hematocrit 50.8 % (39.6-49.0); Lymphocytes % 18.1 % (15.3-44.8); MPV 8.2 fL (7.6-11.3); Monocytes % 8.9 % (3.3-12.3); RBC Red Blood Cell Count 4.74 M/uL (4.33-5.43)
[2018-10-12 09:32] LABS: ALT/SGPT 57 U/L (12-78); AST/SGOT 64 U/L (15-37); Albumin 4.1 g/dL (3.4-5.0); Alkaline Phosphatase 92 U/L (45-117); BUN Blood Urea Nitrogen 11 mg/dL (7-18); Bilirubin Direct 0.1 mg/dL (0-0.2); Bilirubin Total 0.3 mg/dL (0.2-1.0); Glucose Level 164 mg/dL (74-106); Potassium 4.5 mmol/L (3.5-5.1); Protein, Total 8.9 g/dL (6.4-8.2); Sodium Level 139 mmol/L (136-145)
[2018-10-12 09:33] LABS: Creatine Phosphokinase 255 U/L (39-308)
[2018-10-12 09:34] LABS: Bicarbonate 6 mmol/L (21-32)
[2018-10-12 09:57] LABS: Arterial Blood Carboxyhemoglob 0.9 % (0-1.5)
[2018-10-12 10:08] LABS: Urine Blood 2+ (NEG); Urine Glucose NEGATIVE (NEG); Urine Protein 3+ (NEG); Urine Specific Gravity >1.030 (1.005-1.030)
[2018-10-12 10:10] LABS: Anisocytosis 1+; Blood Morphology Comment NOTED (NOT SEEN); Macrocytosis 1+; Platelet Estimate ADEQ; Urine White Blood Cell Casts OK
--- NOTE | 2018-10-12 11:08 | ER ---
Nurse's Notes [facility] Name: Karlos Leblanc Age: 52 yrs Sex: Male : 1965 Arrival Date: 10/12/2018 Time: 08:08 Bed 3 Private MD: Diagnosis: Acidosis-Lactic Acidosis;Dehydration;Epilepsy and recurrent seizures;Acute kidney failure Presentation: 10/12 08:08 Presenting complaint: EMS states: EMS called for seizure activity, pt has hx of ph seizures, seizure witnessed by roommate who reported that pt had been drinking last night and possibly using synthetic, 5mg Midazolam administered nasally, BGL 186, pt post-ictal. Transition of care: patient was not received from another setting of care. Onset of symptoms was October 12, 2018. Risk Assessment: Do you want to hurt yourself or someone else? Patient reports no desire to harm self or others. Initial Sepsis Screen: Does the patient meet any 2 criteria? No. Patient's initial sepsis screen is negative. Does the patient have a suspected source of infection? No. Patient's initial sepsis screen is negative. Care prior to arrival: Medication(s) given: Midazolam 5 mg IV initiated. 20 GA, in the left antecubital area, Glucose check: 186. 08:08 Method Of Arrival: EMS: [facility] 08:08 Acuity: KENIA 2 ph Triage Assessment: 08:00 General: Appears uncomfortable, unkempt, urinated on himself. Behavior is unresponsive. sv 08:00 Pain: Unable to use pain scale. Does not appear to understand pain scale. Patient is sv unresponsive. Neuro: Level of Consciousness is lethargic, unresponsive, Oriented to none Moves all extremities. Respiratory: Airway is patent Respiratory effort is unlabored, shallow, Respiratory pattern is regular. Derm: Skin is normal. Historical: - Allergies: 08:17 NKDA; ph - PMHx: 08:17 ADD/ADHD; CHF; COPD; CVA; Myocardial infarction; PVD; Seizures; ph - Immunization history:: Adult Immunizations unknown. - Social history:: Smoking status: unknown. - Ebola Screening: : Unable to complete screening because patient is disoriented, . Screenin:06 Abuse screen: Denies threats or abuse. Denies injuries from another. Nutritional sv screening: No deficits noted. Tuberculosis screening: No symptoms or risk factors identified. Fall Risk No fall in past 12 months (0 pts). Secondary diagnosis (15 points) seizures, IV access (20 points). Ambulatory Aid- None/Bed Rest/Nurse Assist (0 pts). Gait- Impaired (20 pts.). Mental Status- Overestimates/Forgets Limitations (15 pts.). Total Mota Fall Scale indicates High Risk Score (45 or more points). Fall prevention measures have been instituted. Side Rails Up X 2 Placed Close to Nursing Station Frequent Obs/Assessments Occuring As available patient and family educated on Fall Prevention Program and Strategies. Assessment: 08:15 Reassessment: Pt noted to be actively seizing at this time, ERP notified, IV medication ph given and O2 administered via NRB mask, se JUL. 08:55 Reassessment: Patient appears in no apparent distress at this time. No changes from sv previously documented assessment. Neuro: Level of Consciousness is lethargic, unresponsive, Oriented to none. 09:57 Reassessment: Patient appears in no apparent distress at this time. No changes from sv previously documented assessment. Patient and/or family updated on plan of care and expected duration. Pain level reassessed. 11:00 Reassessment: Patient appears in no apparent distress at this time. Patient and/or sv family updated on plan of care and expected duration. Pain level reassessed. Neuro: Level of Consciousness is obeys commands, lethargic, Oriented to person, Moves all extremities. Speech is normal. Respiratory: Respiratory effort is even, unlabored, Respiratory pattern is regular, symmetrical. 11:54 Reassessment: Patient appears in no apparent distress at this time. Patient and/or sv family updated on plan of care and expected duration. Pain level reassessed. Neuro: Level of Consciousness is obeys commands, lethargic, Oriented to person, Moves all extremities. Respiratory: Respiratory effort is even, unlabored, Respiratory pattern is regular, symmetrical. 12:06 Reassessment: Report given to Melody from EMS. sv Vital Signs: 08:11 BP 146 / 62; Pulse 116; Resp 18; Temp 98.3; Pulse Ox 96% on R/A; Weight 86.18 kg; ph 08:19 BP 125 / 59; Pulse 125; Resp 30; Pulse Ox 97% on Non-rebreather mask; sv 08:33 BP 136 / 57; Pulse 131; Resp 27; Pulse Ox 99% on 15% Non-rebreather mask; sv 08:45 BP 110 / 55; Pulse 111; Resp 28; Pulse Ox 100% on 15% Non-rebreather mask; sv 09:00 BP 117 / 47; Pulse 107; Resp 23; Temp 98; Pulse Ox 100% on 15% Non-rebreather mask; sv 09:27 BP 100 / 47; Pulse 105; Resp 22; Pulse Ox 100% on 15% Non-rebreather mask; sv 09:58 BP 128 / 60; Pulse 98; Resp 20; Pulse Ox 100% on 15% Non-rebreather mask; sv 10:30 BP 137 / 70; Pulse 109; Resp 22; Pulse Ox 99% on R/A; sv 11:00 BP 174 / 83; Pulse 117; Resp 27; Pulse Ox 98% on 2 lpm NC; sv 11:30 BP 133 / 78; Pulse 95; Resp 25; Pulse Ox 95% on 2 lpm NC; sv 11:53 BP 164 / 83; Pulse 88; Resp 22; Pulse Ox 99% on 2 lpm NC; sv Diamond Coma Score: 08:00 Eye Response: to voice(3). Verbal Response: none(1). Motor Response: withdraws from sv pain(4). Modifying Factors: Medicated. Total: 8. 08:46 Eye Response: to pain(2). Verbal Response: none(1). Motor Response: localizes pain(5). jr8 Total: 8. 11:03 Eye Response: spontaneous(4). Verbal Response: oriented(5). Motor Response: obeys jr8 commands(6). Total: 15. ED Course: 07:58 Maintain EMS IV. Dressing intact. Site clean \T\ dry. Gauge \T\ site: 20G L AC. sv 08:08 Patient arrived in ED. ph 08:11 Henry Mcgowan PA is PHCP. jr8 08:11 J Carlos Parada MD is Attending Physician. jr8 08:11 Triage completed. ph 08:11 Modesto Wang MD is Attending Physician. jr8 08:15 Initial lab(s) drawn, by me, sent to lab. Inserted saline lock: 20 gauge in right sv wrist, using aseptic technique. Flushed right with 5 ml normal saline wrist. 08:19 Patient has correct armband on for positive identification. Bed in low position. Side ph rails up X2. Seizure precautions initiated. telemetry monitor on. Pulse ox on. NIBP on. 08:30 Arm band placed on. sv 08:30 Straight cath inserted, using sterile technique, 16 Fr. Specimen obtained. Returned ph clear yellow urine. Patient tolerated well. 08:50 Lab(s) recollected, by me, sent to lab. Inserted saline lock: 18 gauge in right sv forearm, using aseptic technique. Blood collected. Flushed right forearm with 5 ml normal saline. 09:00 Lata Valladares, TAVO is Primary Nurse. sv 09:02 Acetaminophen Sent. sv 09:02 Basic Metabolic Panel Sent. sv 09:02 CBC with Diff Sent. sv 09:26 CBC Smear Scan Sent. sv 09:34 Notified Nurse Practitioner and/or Physician Cooler Operator of a critical lab result(s), sv CO2-6. 09:54 Initial lab(s) drawn, by me, sent to lab. sv 09:57 ABG drawn. by RT staff, on oxygen. sv 10:35 Notified Nurse Practitioner and/or Physician Cooler Operator of a critical lab result(s), sg Lactate of 11.8. 10:37 Notified Nurse Practitioner and/or Physician Cooler Operator of a critical lab result(s), hb Lactate 11.8. 11:15 Transfer center [facility], the approval time is 1113, Dr.ArifS. room 2214. ms 11:51 No provider procedures requiring assistance completed. Patient transferred, IV remains sv in place. intact. Administered Medications: 08:17 Drug: Ativan 2 mg Route: IVP; Site: right forearm; ph 08:30 Follow up: Response: No adverse reaction; Marked relief of symptoms sv 08:55 Drug: NS 0.9% 1000 ml Route: IV; Rate: 1000 ml; Site: right forearm; sv 10:00 Follow up: Response: No adverse reaction; IV Status: Completed infusion; IV Intake: sv 1000ml 08:55 Drug: Fosphenytoin 1 grams Route: IVPB; Site: right forearm; sv 09:15 Follow up: Response: No adverse reaction; IV Status: Completed infusion; IV Intake: sv 100ml 09:59 Drug: NS 0.9% 1000 ml Route: IV; Rate: 1000 ml; Site: right forearm; sv 11:00 Follow up: Response: No adverse reaction; IV Status: Completed infusion; IV Intake: sv 1000ml Intake: 09:15 IV: 100ml; Total: 100ml. sv 10:00 IV: 1000ml; Total: 1100ml. sv 11:00 IV: 1000ml; Total: 2100ml. sv Output: 08:35 Urine: 50ml (Straight Cath); Total: 50ml. sv 11:00 Urine: 200ml (Voided); Total: 250ml. sv Outcome: 11:07 ER care complete, transfer ordered by . humberto 11:51 Transferred by ground EMS to [facility], [facility] [place], Transfer form completed. sv Note: Report given to Shweta VO at [facility] 11:51 Condition: stable 11:51 Instructed on the need for transfer. 12:17 Patient left the ED. sv Signatures: Lata Valladares RN RN Harish Floyd RN RN sg Solis, Maria ms Roszak, Josh, PA PA jrKelsey Elliott RN RN Latia Haney RN RN Corrections: (The following items were deleted from the chart) 09:30 08:00 General: Appears in no apparent distress. sv sv 09:30 09:28 Pain: Unable to use pain scale. Does not appear to understand pain scale. Patient sv is unresponsive. sv 09:30 09:28 Neuro: Level of Consciousness is lethargic, unresponsive, Oriented to none Moves sv all extremities. sv 09:30 09:28 Respiratory: Airway is patent Respiratory effort is unlabored, shallow, sv Respiratory pattern is regular, sv :30 09:28 Derm: Skin is normal, sv sv
--- NOTE | 2018-10-12 11:08 | EDPHYS ---
Physician Documentation [facility] Name: Karlos Leblanc Age: 52 yrs Sex: Male : 1965 Arrival Date: 10/12/2018 Time: 08:08 Bed 3 Private MD: ED Physician Modesto Wang HPI: 10/12 08:46 This 52 yrs old Male presents to ER via EMS with complaints of Seizure. jr8 08:46 Seizure onset: just prior to arrival. Context: the seizure(s) was witnessed, by a jr8 friend, occurred at home, occurred while the patient was at rest, Contributing factors: suspected or documented drug use, recent alcohol abuse. Current symptoms: decreased level of consciousness, is arousable but tired. It is unknown whether or not the patient has had similar symptoms in the past. It is unknown whether or not the patient has recently seen a physician. EMS was called out to the patient seizing per his roommate. Stated that they had to give IN midazolam. Patient postictal at this time. Stated that the roommate noted him drinking last night and had possible use of marajuana or synthetic. Historical: - Allergies: 08:17 NKDA; ph - PMHx: 08:17 ADD/ADHD; CHF; COPD; CVA; Myocardial infarction; PVD; Seizures; ph - Immunization history:: Adult Immunizations unknown. - Social history:: Smoking status: unknown. - Ebola Screening: : Unable to complete screening because patient is disoriented, . ROS: 08:46 Unable to obtain ROS due to altered mental status, obtunded state. jr8 Exam: 08:46 Eyes: Pupils equal round and reactive to light, extra-ocular motions intact. Lids and jr8 lashes normal. Conjunctiva and sclera are non-icteric and not injected. Cornea within normal limits. Periorbital areas with no swelling, redness, or edema. ENT: Oropharynx with no redness, swelling, or masses, exudates, or evidence of obstruction, uvula midline. Mucous membranes moist. Neck: Trachea midline, no thyromegaly or masses palpated, and no cervical lymphadenopathy. Supple, full range of motion without nuchal rigidity Respiratory: Lungs have equal breath sounds bilaterally, clear to auscultation and percussion. No rales, rhonchi or wheezes noted. No increased work of breathing, no retractions or nasal flaring. Abdomen/GI: Soft with normal bowel sounds. No distension or tympany. No guarding or rebound. Back: No evidence of external trauma Skin: Warm, moist with normal turgor. Normal color with no rashes, no lesions, and no evidence of cellulitis. MS/ Extremity: Pulses equal, no cyanosis. Neurovascular intact. Full, normal range of motion. 08:46 Neuro: Orientation: Not oriented to person, place, time, situation, Mentation: unable to follow commands, Memory: unable to test, Cerebellar function: unable to test, Motor: moves all fours, Sensation: unable to test, Gait: not tested. seizure activity, is not currently displayed, but the patient is post-ictal, Abnormal movements: there are no abnormal movements. 08:53 Cardiovascular: Rate: tachycardic, Rhythm: regular, Pulses: Pulses are 2+ in right jr8 radial artery and left radial artery. Heart sounds: normal, normal S1and S2, no S3 or S4, no murmur, no rub, no gallop, Edema: is not appreciated. Vital Signs: 08:11 BP 146 / 62; Pulse 116; Resp 18; Temp 98.3; Pulse Ox 96% on R/A; Weight 86.18 kg; ph 08:19 BP 125 / 59; Pulse 125; Resp 30; Pulse Ox 97% on Non-rebreather mask; sv 08:33 BP 136 / 57; Pulse 131; Resp 27; Pulse Ox 99% on 15% Non-rebreather mask; sv 08:45 BP 110 / 55; Pulse 111; Resp 28; Pulse Ox 100% on 15% Non-rebreather mask; sv 09:00 BP 117 / 47; Pulse 107; Resp 23; Temp 98; Pulse Ox 100% on 15% Non-rebreather mask; sv 09:27 BP 100 / 47; Pulse 105; Resp 22; Pulse Ox 100% on 15% Non-rebreather mask; sv 09:58 BP 128 / 60; Pulse 98; Resp 20; Pulse Ox 100% on 15% Non-rebreather mask; sv 10:30 BP 137 / 70; Pulse 109; Resp 22; Pulse Ox 99% on R/A; sv 11:00 BP 174 / 83; Pulse 117; Resp 27; Pulse Ox 98% on 2 lpm NC; sv 11:30 BP 133 / 78; Pulse 95; Resp 25; Pulse Ox 95% on 2 lpm NC; sv 11:53 BP 164 / 83; Pulse 88; Resp 22; Pulse Ox 99% on 2 lpm NC; sv Patricia Coma Score: 08:00 Eye Response: to voice(3). Verbal Response: none(1). Motor Response: withdraws from sv pain(4). Modifying Factors: Medicated. Total: 8. 08:46 Eye Response: to pain(2). Verbal Response: none(1). Motor Response: localizes pain(5). jr8 Total: 8. 11:03 Eye Response: spontaneous(4). Verbal Response: oriented(5). Motor Response: obeys jr8 commands(6). Total: 15. MDM: 08:12 Patient medically screened. jr8 08:52 ED course: Patient had another seizure and was medicated at that time. Resting at this jr8 point with adequate vital signs. No indication to intubate at this time due to seizure or respiratory status . 11:03 Data reviewed: vital signs, nurses notes, lab test result(s), EKG, radiologic studies, jr8 plain films. Data interpreted: Pulse oximetry: on room air is 99 %. Interpretation: normal. Counseling: I had a detailed discussion with the patient and/or guardian regarding: the historical points, exam findings, and any diagnostic results supporting the discharge/admit diagnosis, lab results, radiology results, the need to transfer to another facility, [facility] does not immediately have the required specialist. ED course: Patient alert and oriented to person, place, time, event. No more seizures at this time. Discussed that due to general dehydration on top of the multiple seizure that he had. He now is in lactic acidosis and needs admission to insure his renal function increases and that we insure he normalizes his lab values again. Patient is good with this and knows transfer is necessary since we do not have neurology on currently . ED course: Dr. Morrow consulted and [facility] and accepted for consult for neuro services . 10/12 08:12 Order name: Acetaminophen jr8 10/12 08:12 Order name: Basic Metabolic Panel jr8 10/12 08:12 Order name: CBC with Diff 8 10/12 08:12 Order name: ETOH Level; Complete Time: 09:46 8 10/12 08:12 Order name: Hepatic Function; Complete Time: 09:46 8 10/12 08:12 Order name: PT-INR; Complete Time: 09:28 10/12 08:12 Order name: Salicylate; Complete Time: 09:28 10/12 08:12 Order name: Urine Drug Screen; Complete Time: 09:19 8 10/12 08:12 Order name: CK; Complete Time: 09:46 8 10/12 08:13 Order name: Acetaminophen Level; Complete Time: 09:46 EDMS 10/12 08:13 Order name: Basic Metabolic Panel; Complete Time: 09:46 EDMS 10/12 08:13 Order name: CBC with Automated Diff; Complete Time: 10:38 EDMS 10/12 08:41 Order name: Glucose, Ancillary Testing; Complete Time: 08:45 EDMS 10/12 08:42 Order name: Urine Dipstick--Ancillary (enter results); Complete Time: 10:38 ms 10/12 08:12 Order name: EKG; Complete Time: 08:13 8 10/12 08:12 Order name: EKG - Nurse/Tech; Complete Time: 09:01 10/12 08:12 Order name: IV Saline Lock; Complete Time: 09:10/12 08:12 Order name: Labs collected and sent; Complete Time: 09:10/12 08:12 Order name: Urine Dipstick-Ancillary (obtain specimen); Complete Time: 09:01 10/12 08:16 Order name: Straight Cath - Urine; Complete Time: 08:39 10/12 09:20 Order name: CBC Smear Scan; Complete Time: 10:38 EDMS 10/12 09:47 Order name: Lactate; Complete Time: 10:38 8 10/12 09:47 Order name: AMMONIA; Complete Time: 10:38 8 10/12 09:47 Order name: ABG; Complete Time: 10:38 10/12 10:00 Order name: Osmolality, Serum; Complete Time: 11:54 jr8 Administered Medications: 08:17 Drug: Ativan 2 mg Route: IVP; Site: right forearm; ph 08:30 Follow up: Response: No adverse reaction; Marked relief of symptoms sv 08:55 Drug: NS 0.9% 1000 ml Route: IV; Rate: 1000 ml; Site: right forearm; sv 10:00 Follow up: Response: No adverse reaction; IV Status: Completed infusion; IV Intake: sv 1000ml 08:55 Drug: Fosphenytoin 1 grams Route: IVPB; Site: right forearm; sv 09:15 Follow up: Response: No adverse reaction; IV Status: Completed infusion; IV Intake: sv 100ml 09:59 Drug: NS 0.9% 1000 ml Route: IV; Rate: 1000 ml; Site: right forearm; sv 11:00 Follow up: Response: No adverse reaction; IV Status: Completed infusion; IV Intake: sv 1000ml Disposition: 16:33 Co-signature as Attending Physician, Modesto Wang MD. gaetano Disposition: 10/12/18 11:[address] [facility]. Diagnosis are Acidosis - Lactic Acidosis, Dehydration, Epilepsy and recurrent seizures, Acute kidney failure. - Reason for transfer: Higher level of care. - Accepting physician is Dr. Cole. - Condition is Stable. - Problem is new. - Symptoms have improved. Signatures: Dispatcher [employer] EDMS Lata Valladares RN RN sv Roszak, Josh, PA PA jr8 Kelsey Contreras RN RN ph Starr, Gregory, MD MD Corrections: (The following items were deleted from the chart) 08:53 08:46 Eyes: Pupils equal round and reactive to light, extra-ocular motions intact. Lids jr8 and lashes normal. Conjunctiva and sclera are non-icteric and not injected. Cornea within normal limits. Periorbital areas with no swelling, redness, or edema. ENT: Oropharynx with no redness, swelling, or masses, exudates, or evidence of obstruction, uvula midline. Mucous membranes moist. Neck: Trachea midline, no thyromegaly or masses palpated, and no cervical lymphadenopathy. Supple, full range of motion without nuchal rigidity Respiratory: Lungs have equal breath sounds bilaterally, clear to auscultation and percussion. No rales, rhonchi or wheezes noted. No increased work of breathing, no retractions or nasal flaring. Abdomen/GI: Soft with normal bowel sounds. No distension or tympany. No guarding or rebound. Back: No evidence of external trauma Skin: Warm, moist with normal turgor. Normal color with no rashes, no lesions, and no evidence of cellulitis. MS/ Extremity: Pulses equal, no cyanosis. Neurovascular intact. Full, normal range of motion. jr8 11:12 11:07 10/12/2018 11:[address] [facility]. Diagnosis is jr8 Acidosis - Lactic Acidosis; Dehydration; Epilepsy and recurrent seizures; Acute kidney failure. Reason for transfer: Higher level of care. Accepting physician is Odalys. Condition is Stable. Problem is new. Symptoms have improved. jr8 12:17 11:12 10/12/2018 11:[address] [facility]. Diagnosis is sv Acidosis - Lactic Acidosis; Dehydration; Epilepsy and recurrent seizures; Acute kidney failure. Reason for transfer: Higher level of care. Accepting physician is Dr. Cole. Condition is Stable. Problem is new. Symptoms have improved. jr8
[2018-10-12 15:30] VITALS: TEMP 98
[2018-10-12 15:39] VITALS: BP 164/83; O2SAT 99
--- NOTE | 2018-10-13 06:21 | EKG ---
Test Date: 2018-10-12 Test Time: 08:03:27 Sales Consultant Residential Manager: HB MEASUREMENT RESULTS: Intervals: Rate: 116 WY: 152 QRSD: 100 QT: 334 QTc: 464 [place]: P: 78 W[place]: 152 QRS: 35 T: 71 INTERPRETIVE STATEMENTS: Sinus tachycardia Incomplete right bundle branch block Borderline ECG Compared to ECG 08/31/2018 11:53:33 Incomplete right bundle-branch block now present Atrial premature complex(es) no longer present Electronically Signed On 10-13-18 06:20:24 CDT by Parveen Perry
== END 2018-10-12 12:17 | disposition short-term general hospital (02) ==
LOC: ER 08:02
DX: G40.802 Other epilepsy, not intractable, without status epilepticus (principal); E87.2 Acidosis; E86.0 Dehydration; N17.9 Acute kidney failure, unspecified; I25.2 Old myocardial infarction
CPT/HCPCS: 96365; 96361; 93005; 85025; 80048; 36415; 80320; 82140; 82550; 80329 ×2; 85610; 82962; 80076; 80307 ×8; 83605; 81003; 83930; 82805; 51702; 96375; 99285; Q2009; J7030 ×2

== ENCOUNTER 2018-12-12 11:21 | Emergency (ER) | payer OTHER ==
--- OUTSIDE RECORDS SUMMARY | 2018-12-12 11:26 | XMS REPORT | Clinical Summary ---
:1965 [facility] Address [address] [place] [address] Care Team Providers Name Role Phone Unavailable Primary Care Provider Unavailable Allergies Active Allergy Reactions Severity Noted Date Comments Morphine Other (See Comments) 04/16/2017 Headache Medications Medication Sig Dispensed Refills Start Date End Date Status VENTOLIN HFA 90 Inhale 1 puff 1 08/26/2018 Active mcg/actuation by mouth via inhaler inhaler 3 (three) times daily as needed for Shortness of Breath. lisinopril Take 10 mg by 0 08/26/2018 Active (PRINIVIL,ZESTRIL) mouth daily. 10 MG tablet amLODIPine Take 10 mg by 0 08/26/2018 Active (NORVASC) 10 MG mouth daily. tablet lovastatin Take 20 mg by 0 Active (MEVACOR) 20 MG mouth nightly. tablet aspirin/salicylamid Take 2 packets 0 Active e/caffeine (BC by mouth daily HEADACHE POWDER as needed (For ORAL) headache and pain relief). folic acid Take 1 tablet 30 tablet 11 10/14/2018 Active (FOLVITE) 1 MG (1 mg total) by 0 tablet mouth daily. thiamine 100 MG Take 1 tablet 30 tablet 11 10/14/2018 Active tablet (100 mg total) 0 by mouth daily. levETIRAcetam Take 1 tablet 60 tablet 11 10/14/2018 Active (KEPPRA) 1000 MG (1,000 mg 0 tablet total) by mouth 2 (two) times daily. benzocaine (ORAJEL) Use as directed 9.45 g 0 04/21/2017 Discontinued 7.5 % oral gel in the mouth or 9 throat 3 (three) times daily as needed for Pain. levETIRAcetam Take 500 mg by 0 08/26/2018 Discontinued (KEPPRA) 500 MG mouth every 12 9 tablet (twelve) hours. levETIRAcetam Take 1 tablet 60 tablet 0 10/14/2018 Discontinued (KEPPRA) 500 MG (500 mg total) 9 tablet by mouth every 12 (twelve) hours for 30 days. Active Problems Problem Noted Date Seizures 10/13/2018 Metabolic acidosis 04/20/2017 H/O ETOH abuse 04/17/2017 Acute kidney injury 04/17/2017 Hypertension, essential 04/17/2017 Leukocytosis 04/17/2017 Tongue laceration 04/17/2017 Status epilepticus 04/16/2017 Encounters Date Type Specialty Care Team Description 10/12/2018 - Hospital Encounter General Internal ArifFermin, Seizures ([facility] ); 10/14/2018 Medicine MD Acute kidney injury ([facility]); Gadicherjamaal, H/O ETOH abuse; Emily Status epilepticus ([facility]) MD Olga 10/12/2018 Travel after 12/11/2017 Social History Tobacco Use Types Packs/Day Years [...] travel history available. Last Filed Vital Signs Vital Sign Reading Time Taken Blood Pressure 114/58 10/14/2018 8:07 PM CDT Pulse 80 10/14/2018 8:07 PM CDT Temperature 36 C (96.8 F) 10/14/2018 8:07 PM CDT Respiratory Rate 17 10/14/2018 8:07 PM CDT Oxygen Saturation 100% 10/14/2018 8:07 PM CDT Inhaled Oxygen Concentration - - Weight 93 kg (205 lb) 10/12/2018 9:30 PM CDT Height 185.4 cm (6' 1") 10/12/2018 9:30 PM CDT Body Mass Index 27.05 10/12/2018 9:30 PM CDT Plan of Treatment Not on file Procedures Procedure Name Priority Date/Time Associated Comments Diagnosis REPORT OF PROCEDURE - 10/16/2018 2:10 ENDOSCOPY SCAN PM CDT RHYTHM STRIP - SCAN 10/16/2018 2:10 PM CDT EEG AWAKE AND DROWSY Routine 10/14/2018 1:57 Results for this PM CDT procedure are in the results section. BASIC METABOLIC PANEL Routine 10/13/2018 6:39 Results for this (7) AM CDT procedure are in the results section. CBC W/PLT COUNT & Routine 10/13/2018 4:25 Results for this AUTO DIFFERENTIAL AM CDT procedure are in the results section. CBC W/PLT COUNT & Routine 10/13/2018 4:25 Results for this AUTO DIFFERENTIAL AM CDT procedure are in the results section. BLOOD CULTURE Routine 10/12/2018 5:31 Results for this PM CDT procedure are in the results section. VITAMIN B12 AND Routine 10/12/2018 5:28 Results for this FOLATE PM CDT procedure are in the results section. PHOSPHORUS Routine 10/12/2018 5:28 Results for this PM CDT procedure are in the results section. MAGNESIUM Routine 10/12/2018 5:28 Results for this PM CDT procedure are in the results section. PHENYTOIN LEVEL, Routine 10/12/2018 5:28 Results for this TOTAL AND FREE PM CDT procedure are in the results section. CT BRAIN WITHOUT IV Routine 10/12/2018 4:38 Results for this CONTRAST PM CDT procedure are in the results section. URINALYSIS W/ Routine 10/12/2018 3:59 Results for this MICROSCOPIC PM CDT procedure are in the results section. BLOOD CULTURE Routine 10/12/2018 3:49 Results for this PM CDT procedure are in the results section. after 12/11/2017 Results EKG-SCANNED (10/16/2018 2:10 PM CDT) Narrative Performed At RHYTHM STRIP - SCAN (10/16/2018 2:10 PM CDT) Narrative Performed At EEG AWAKE AND DROWSY (10/14/2018 1:57 PM CDT) Specimen Narrative Performed At Date(s) of EE10/14/18 [facility] DATE OF REPORT: 10/14/18 ACC: [id number] EEG Number: [id number] Start time: 13:36 Stop time: 13:57 ICD-10: R56.9 Unspecified Convulsions CPT Code: 84611 EEG: awake and drowsy <40 min HISTORY: 52 y.o. right handed M w/ PMH of HTN, PAD, s/p Rt foot and Left big toe amputation, seizures, alcohol use, current smoker was transferred from the OSH for ongoing seizures, s/pVersed enroute to OSH , 2 mgativan. 1L of saline and fosphenytoin 1 gm. At OSH ER, now post ictal on transfer. MEDICATION THAT CAN AFFECT EEG: Versed, Levetiracetam TECHNICAL SUMMARY: This is a digital video-EEG recorded with 32 input channels reviewed with bipolar and referential montages using the modified combinatorial system nomenclature. DESCRIPTION OF RECORD: During the maximally alert state a 9 Hz posterior dominant rhythm was seen that was symmetric, reactive to eye opening and well regulated. More anteriorly, low voltage frontocentral beta predominated. Drowsiness was characterized by alpha attenuation and increased frontocentral theta, vertex sharp transients. Stage 2 sleep was not reached. SIGNIFICANT VIDEO EVENTS: None SIGNIFICANT ELECTROCARDIOGRAM EVENTS: None HV: Hyperventilation was not performed. PHOTIC STIMULATION: Photic stimulation was done from 1-30 Hz; no photic driving was seen; photoparoxysmal responses were absent. IMPRESSION: Normal Awake and Drowsy EEG CLINICAL CORRELATION: An EEG without epileptiform discharges does not exclude the possibility of epilepsy. It the clinical suspicion of epilepsy remains, consider additional EEG recordings capturing the sleep state. Indigo Zabala MD Neurophysiology Fellow Anjali Mann MD Neurophysiology/Epilepsy Attending Procedure Note Interface, External Ris In - 10/14/2018 2:50 PM CDT Date(s) of EE10/14/18 DATE OF REPORT: 10/14/18 ACC: [id number] EEG Number: [id number] Start time: 13:36 Stop time: 13:57 ICD-10: R56.9 Unspecified Convulsions CPT Code: 26753 EEG: awake and drowsy <40 min HISTORY: 52 y.o. 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 1L of saline and fosphenytoin 1 gm. At OSH ER, now post ictal on transfer. MEDICATION THAT CAN AFFECT EEG: Versed, Levetiracetam TECHNICAL SUMMARY: This is a digital video-EEG recorded with 32 input channels reviewed with bipolar and referential montages using the modified combinatorial system nomenclature. DESCRIPTION OF RECORD: During the maximally alert state a 9 Hz posterior dominant rhythm was seen that was symmetric, reactive to eye opening and well regulated. More anteriorly, low voltage frontocentral beta predominated. Drowsiness was characterized by alpha attenuation and increased frontocentral theta, vertex sharp transients. Stage 2 sleep was not reached. SIGNIFICANT VIDEO EVENTS: None SIGNIFICANT ELECTROCARDIOGRAM EVENTS: None HV: Hyperventilation was not performed. PHOTIC STIMULATION: Photic stimulation was done from 1-30 Hz; no photic driving was seen; photoparoxysmal responses were absent. IMPRESSION: Normal Awake and Drowsy EEG CLINICAL CORRELATION: An EEG without epileptiform discharges does not exclude the possibility of epilepsy. It the clinical suspicion of epilepsy remains, consider additional EEG recordings capturing the sleep state. Indigo Zabala MD Neurophysiology Fellow Anjali Mann MD Neurophysiology/Epilepsy Attending Performing Organization Address City/State/Zipcode Phone Number [facility] Basic Metabolic Panel (10/13/2018 6:39 AM CDT) Sodium 133 (L) 136 - 145 meq/L [facility] Potassium 4.1Comment: Specimen slightly 3.5 - 5.1 meq/L [facility] Chloride 103 98 - 107 meq/L [facility] CO2 19 (L) 22 - 29 meq/L [facility] BUN 8 7 - 21 mg/dL [facility] Creatinine 0.83Comment: Specimen 0.57 - 1.25 mg/dL [facility] slightly hemolyzed [facility] Glucose 84 70 - 105 mg/dL [facility] Calcium 8.5 8.4 - 10.2 mg/dL [facility] EGFR 97Comment: ESTIMATED GFR IS mL/min/1.73 sq m [facility] NOT ACCURATE [facility] CLEARANCE IN PREDICTING GLOMERULAR FILTRATION RATE. ESTIMATED GFR IS NOT APPLICABLE FOR DIALYSIS PATIENTS. Specimen Blood Performing Organization Address City/State/Zipcode Phone Number [facility] [address] [place] [address] CENTER CBC with platelet count + automated diff (10/13/2018 4:25 AM CDT) WBC 9.7 3.5 - 10.5 K/L [facility] RBC 4.44 (L) 4.63 - 6.08 M/L [facility] Hemoglobin 14.9 13.7 - 17.5 GM/DL [facility] Hematocrit 44.1 40.1 - 51.0 % [facility] MCV 99.3 (H) 79.0 - 92.2 fL [facility] MCH 33.6 (H) 25.7 - 32.2 pg [facility] MCHC 33.8 32.3 - 36.5 GM/DL [facility] RDW 15.2 (H) 11.6 - 14.4 % [facility] Platelets 177 150 - 450 K/CU MM [facility] MPV 9.7 9.4 - 12.4 fL [facility] nRBC 0 0 - 0 /100 WBC [facility] % Neutros 73 % [facility] % Lymphs 16 % [facility] % Monos 11 % [facility] % Eos 0 % [facility] % Baso 0 % [facility] # Neutros 7.05 (H) 1.78 - 5.38 K/L [facility] # Lymphs 1.52 1.32 - 3.57 K/L [facility] # Monos 1.04 (H) 0.30 - 0.82 K/L [facility] # Eos 0.01 (L) 0.04 - 0.54 K/L [facility] # Baso 0.04 0.01 - 0.08 K/L [facility] Immature Granulocytes-Relative 0 0 - 1 % [facility] Specimen Blood Performing Organization Address City/[facility] Phone Number [facility] [address] [place] [phone] [place] Blood Culture - Routine (Right Venipuncture) (10/12/2018 5:31 PM CDT)Only the most recent of2 resultswithin the time period is included. Result No growth in 5 days [facility] Specimen Blood Performing Organization Address City/[facility] Cent[facility]ode Phone Number [address] [address] [phone] [place] Vitamin B12 and Folate (10/12/2018 5:28 PM CDT) Vitamin B12 683 213 - 816 pg/mL [facility] Folate >40.0 >=7.0 ng/mL [facility] Specimen Blood Performing Organization Address City/[facility] Phone Number [facility] [address] [place] [phone] [place] Phenytoin level, total and free (10/12/2018 5:28 PM CDT) Phenytoin 13.0 10.0 - 20.0 ug/mL [facility] Dilantin, Free 0.58 (L) 1.00 - 2.00 mcg/ml [facility] Specimen Blood Narrative Performed At Performing Organization Address City/[facility] Cent[facility]ode Phone Number [facility] [address], [address] [place] [address] Phosphorus (10/12/2018 5:28 PM CDT) Phosphorus 4.0 2.3 - 4.7 mg/dL [facility] Specimen Blood Performing Organization Address City/State/Zipcode Phone Number [facility] [address] [place] [address] [place] Magnesium (10/12/2018 5:28 PM CDT) Magnesium 2.5 1.6 - 2.6 mg/dL [facility] Specimen Blood Performing Organization Address City/[facility]/Zipcode Phone Number [facility] [address] [place] [address] brain without IV contrast (10/12/2018 4:38 PM CDT) Specimen Narrative Performed At FINAL REPORT [facility] CT head without contrast. Reason for exam: Seizures new or progressive Comparisons: No priors Discussion: Multiple axial CT images of the head are provided without contrast evaluated in brain and bone windows. This exam was performed according to our departmental dose optimization program which includes automated exposure control, adjustment of the mA and/or kV according to patient's size and/or use of iterative reconstructive technique. There is age related generalized brain volume loss. Nonspecific scattered supratentorial white matter hypodensity most likely reflects chronic small vessel ischemic disease. 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 No evidence of acute territorial infarct. Intracranial vascular calcifications are present.There is no CT evidence of intracranial hemorrhage, mass-effect, hydrocephalus, shift, or extra-axial collections. The visualized orbital contents, bones and surrounding soft tissues are unremarkable. The visualized paranasal sinuses and mastoid air cells are unremarkable. Impressions: No CT evidence of acute intracranial process. Involutional and chronic microvascular ischemic changes. Signed: Delisa Bustillo MD Report Verified Date/Time:10/12/2018 16:58:56 Reading Location: [facility] [id number] Neuro Reading Room Procedure Note Interface, External Ris In - 10/12/2018 5:01 PM CDT FINAL REPORT CT head without contrast. Reason for exam: Seizures new or progressive Comparisons: No priors Discussion: Multiple axial CT images of the head are provided without contrast evaluated in brain and bone windows. This exam was performed according to our departmental dose optimization program which includes automated exposure control, adjustment of the mA and/or kV according to patient's size and/or use of iterative reconstructive technique. There is age related generalized brain volume loss. Nonspecific scattered supratentorial white matter hypodensity most likely reflects chronic small vessel ischemic disease. 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 No evidence of acute territorial infarct. Intracranial vascular calcifications are present. There is no CT evidence of intracranial hemorrhage, mass-effect, hydrocephalus, shift, or extra-axial collections. The visualized orbital contents, bones and surrounding soft tissues are unremarkable. The visualized paranasal sinuses and mastoid air cells are unremarkable. Impressions: No CT evidence of acute intracranial process. Involutional and chronic microvascular ischemic changes. Signed: Delisa Bustillo MD Report Verified Date/Time: 10/12/2018 16:58:56 Reading Location: [facility] [id number] Neuro Reading Room Performing Organization Address City/State/Zipcode Phone Number [facility] Urinalysis w/Microscopic (10/12/2018 3:59 PM CDT) Color, UA Light Yellow [facility] Clarity, UA Clear [facility] Specific [place], UA 1.007 1.001 - 1.035 [facility] pH, UA 5.5 5.0 - 8.0 [facility] Protein, UA 10 mg/dL (A) Negative [facility] Glucose, UA Negative Negative [facility] Ketones, UA 20 mg/dL (A) Negative [facility] Bilirubin, UA Negative Negative [facility] Blood, UA Trace (A) Negative [facility] Nitrite, UA Negative Negative [facility] Leukocytes, UA Negative Negative [facility] Urobilinogen, UA 0.2 0.2 - 1.0 mg/dL [facility] RBC, UA <1 /HPF [facility] WBC, UA 1 /HPF [facility] Squam Epithel, UA <1 /HPF [facility] Specimen Source Urine, Voided [facility] Specimen Urine Performing Organization Address City/State/Zipcode Phone Number [facility] [address] [place] [address] [phone] CENTER after 12/11/2017 Insurance Payer Benefit Plan / Subscriber ID Type Phone Address Group [employer] - [employer] MEDICARE xxxxxxxx [facility] Contracted [phone] MEDICARE [employer] HMO POS 218551 [place] [address] (Home) [place] [address]
--- OUTSIDE RECORDS SUMMARY | 2018-12-12 11:31 | XMS REPORT | Continuity of Care Document ---
:1965 Author Organization [employer] Care Team Providers Name Role Phone [employer] Unavailable Unavailable Problems Problem Status Onset Classification Date Comments Source Date Reported ANEMIA Active 04/04/20 The 16 [place] Discharge 03/14/20 03/17/2016 The Diagnosis: Acute 16 [place] on chronic renal failure Discharge 03/14/20 03/17/2016 The Diagnosis: Anemia 16 [place] Discharge 03/14/20 03/17/2016 The Diagnosis: 16 [place] Post-operative pain Discharge 03/14/20 03/17/2016 The Diagnosis: Acute 16 [place] hypokalemia OTHER Active 03/13/20 The 16 [place] FOOT GANGRENE Active 01/31/20 The 16 [place] LEFT FOOT SORES Active 01/31/20 The 16 [place] Discharge 02/17/20 02/19/2015 The Diagnosis: 15 [place] Hyperlipidemia Discharge 02/17/20 02/19/2015 The Diagnosis: 15 [place] Hypertension Discharge 02/17/20 02/19/2015 The Diagnosis: Angina 15 [place] pectoris CHEST PAIN Active 02/16/20 The 15 [place] CP Active 02/16/20 The 15 [place] Discharge 02/10/20 02/12/2015 The Diagnosis: Wrist 15 [place] sprain LEFT WRIST PAIN Active 02/10/20 The 15 [place] Discharge 01/24/20 01/26/2015 The Diagnosis: 15 [place] Epileptic seizure, generalized Discharge 01/24/20 01/26/2015 The Diagnosis: 15 [place] Cerebral seizure AMS Active 01/24/20 The 15 [place] WOUND INFECTION V Active 10/21/19 The NECFAS;CHRONIC 14 [place] OSTEOMY Acute Active Problem 04/08/2016 The osteomyelitis [place] CHF - Congestive Active Problem 04/08/2016 The heart failure [place] HTN (Confirmed) Active Problem 04/08/2016 [place] Bronchitis Active Problem 04/08/2016 [place] COPD Active Problem 04/08/2016 [place] Nose bleed Active Problem 04/08/2016 [place] Seizure Active Problem 04/08/2016 [place] H/O candidiasis Active Problem 04/08/2016 [place] H/O amputation of Active Problem 04/08/2016 The lesser toe [place] Hx of peripheral Active Problem 04/08/2016 The vascular disease [place] BPH (Confirmed) Active Problem 04/08/2016 [place] CELLULITIS OF Active The FOOT [place] AC Active The OSTEOMYELITIS-UNS [place] PEC CHEST PAIN NOS Active [place] GANGRENE, NOT Active The ELSEWHERE [place] CLASSIFIED ANEMIA, Active The UNSPECIFIED [place] Medications Medication Details Route Status Patient Ordering Order Source Instructions Provider Date Sodium Chloride IVPB, 150 Active The 0.9% IV ml/hr, PRN, 2015 [place] Start date: 04/05/16 8:00:00 NURSING TECH, Duration: 30, 1,000 ml EPINEPHrine 0.5 mg, 0.5 Active The mL, Route: 2015 [place] IVP, Drug form: INJ, PRN, PRN Other -See Comment, Start date: 04/05/16 7:22:00 NURSING TECH, Duration: 30 day, Stop date: 05/05/16 7:21:00 CSTNotes: MEDICATION WASTE Product Size: 1 mg Product Wasted: ___ mg Solu-CORTEF 100 mg, 2 mL, Active The Route: IVP, 2015 [place] Drug form: PDR/INJ, PRN, PRN Other -See Comment, Start date: 04/05/16 7:22:00 NURSING TECH, Duration: 30 day, Stop date: 05/05/16 7:21:00 CSTNotes: (Same as: Solu-CORTEF) Benadryl 50 mg, 1 mL, Active The Route: IVP, 2015 [place] Drug form: INJ, PRN, PRN Other -See Comment, Start date: 04/05/16 7:22:00 NURSING TECH, Duration: 30 day, Stop date: 05/05/16 7:21:00 CSTNotes: (Same as: Benadryl) Sodium Chloride IV, 0 ml/hr, Active The 0.9% IV PRN, PRN Blood 2015 [place] Transfusion, Start date: 04/05/16 7:21:00 NURSING TECH, Duration: 30, 250 ml heparin flush 500 unit, 5 Active The mL, Route: 2015 [place] IVP, Drug form: SOLN, PRN, PRN Line Flush, Start date: 04/05/16 7:21:00 NURSING TECH, Duration: 30 day, Stop date: 05/05/16 7:20:00 CSTNotes: (Same as: Heparin Lock Flush) BD Normal Saline 20 mL, Route: Active The Flush IVP, Drug 2015 [place] Form: INJ, PRN, PRN Line Flush, Start date: 04/05/16 7:21:00 NURSING TECH, Duration: 30 day, Stop date: 05/05/16 7:20:00 CSTNotes: (Same as: BD Posiflush) Benadryl 25 mg, 0.5 mL, Active The Route: IVP, 2015 [place] Drug form: INJ, Before Transfusion, PRN Blood Transfusion, Start date: 04/05/16 7:21:00 NURSING TECH, Duration: 30 day, Stop date: 05/05/16 7:20:00 CSTNotes: (Same as: Benadryl) Tylenol 650 mg, 2 tab, Active The Route: PO, 2015 [place] Drug form: TAB, Before Transfusion, PRN Blood Transfusion, Start date: 04/05/16 7:20:00 NURSING TECH, Duration: 30 day, Stop date: 05/05/16 7:19:00 CSTNotes: Do not exceed 4 gm/day. (Same as: Tylenol) Acetaminophen 325 1 tab, Route: Inactive The MG / Hydrocodone PO, Drug Form: 2015 [place] Bitartrate 5 MG TAB, Dosing Oral Tablet [[place] Weight 98.636, 5/325] kg, ONCE, STAT, Start date: 03/14/16 6:34:00 CDT, Stop date: 03/14/16 6:34:00 CDTNotes: (Same as: [place] 325/5) Do not exceed 4gm/day of acetaminophen. Acetaminophen 300 1 tab, PO, No Longer The MG / Codeine Q4H, PRN Pain, Active 2015 [place] Phosphate 30 MG X 2 day, # 12 Oral Tablet tab, 0 [Tylenol with Refill(s) Codeine #3] Zofran 4 mg, 2 mL, No Longer The Route: IVP, Active 2015 [place] Drug form: INJ, ONCE, Dosing Weight 98.636, kg, Priority: STAT, Start date: 03/13/16 23:18:00 CDT, Stop date: 03/13/16 23:18:00 CDTNotes: (Same as: Zofran) MEDICATION WASTE Product Size: 4 mg Product Wasted: ___ mg Dilaudid 0.5 mg, 0.5 No Longer The mL, Route: Active 2015 [place] IVP, Drug form: INJ, ONCE, Dosing Weight 98.636, kg, Priority: STAT, Start date: 03/13/16 23:18:00 CDT, Stop date: 03/13/16 23:18:00 CDTNotes: Same as: Dilaudid Sodium Chloride 500 mL, 500 No Longer The 0.154 MEQ/ML ml/hr, Infuse Active 2015 [place] Injectable Over: 1 hr, Solution Route: IV, 500, Drug form: INJ, ONCE, Priority: STAT, Dosing Weight 98.636 kg, Start date: 03/13/16 23:18:00 CDT, Duration: 1 doses or times, Stop date: 03/13/16 23:18:00 CDT Oxycodone 15 mg=3 tab, Active The Hydrochloride 5 MG PO, Q4H, PRN 2015 [place] Oral Tablet Pain Score 7-10, 0 Refill(s) Oxycodone 15 mg, 3 tab, Inactive The Hydrochloride 5 MG Route: PO, 2015 [place] Oral Tablet Drug form: TAB, Q4H, Dosing Weight 96.023, kg, PRN Pain Score 7-10, Start date: 02/18/16 8:43:00 CDT, Duration: 30 day, Stop date: 03/19/16 8:42:00 CDTNotes: (Same as: Roxicodone) Ceftriaxone 2 gm, Route: No Longer The IVPB, [id number], Active 2015 [place] Dosing Weight 96.023, kg, Start date: 02/17/16 15:00:00 CDT, Duration: 30 day, Stop date: 03/17/16 15:00:00 CDTNotes: (Same As: Rocephin). Use with 100 mL NS and infuse over 30 min MEDICATION WASTE Product Size: 2000 mg Product Wasted: ___ mg Albuterol 0.83 NEB, PRN, PRN Active The MG/ML Inhalant Respiratory 2015 [place] Solution Protocol, 0 Refill(s) chlorhexidine 1 appl, BATHE, Active The gluconate 40 MG/ML Q--W-, 0 2015 [place] Medicated Liquid Refill(s) Soap tamsulosin 0.4 mg 0.4 mg=1 cap, Active The oral capsule PO, After 2015 [place] Dinner, 0 Refill(s) fluconazole 100 mg 200 mg=2 tab, Active The oral tablet PO, [id number], 0 2015 [place] Refill(s) pantoprazole 40 mg 40 mg=1 tab, Active The oral enteric PO, Before 2015 [place] coated tablet Breakfast, 0 Refill(s) Acetaminophen 325 1 tab, PO, Active The MG / Hydrocodone Q4H, PRN Pain 2015 [place] Bitartrate 5 MG Score 1-3, 0 Oral Tablet Refill(s) cefTRIAXone + 2 gm, Route: No Longer The sodium chloride IVPB, [id number], Active 2015 [place] 0.9% INJ 100 mL Dosing Weight 96.023, kg, Start date: 02/15/16 18:00:00 CDT, Duration: 2 day, Stop date: 02/16/16 18:00:00 CDTNotes: (Same As: Rocephin). Use with 100 mL NS and infuse over 30 min MEDICATION WASTE Product Size: 2000 mg Product Wasted: ___ mg Flomax 0.4 mg, 1 cap, No Longer The Route: PO, Active 2015 [place] Drug form: CAP, After Dinner, Dosing Weight 96.023, kg, Start date: 02/13/16 17:00:00 CDT, Duration: 30 day, Stop date: 03/13/16 17:00:00 CDTNotes: (Same As: Flomax) "Do Not Crush" vancomycin + 1,000 mg, No Longer The sodium chloride Route: IVPB, Active 2015 [place] 0.9% INJ 250 mL Q24H, Start date: 02/13/16 6:00:00 CDT, Duration: 30 day, Stop date: 03/13/16 6:00:00 CDTNotes: TIME CRITICAL MEDICATION (Same As: Vancocin) Infusion rate 2001 mg: infuse over 2.5 hours MEDICATION WASTE Product Size: 1000 mg Product Wasted: ___ mg Fluconazole 200 mg, 2 tab, No Longer The Route: PO, Active 2015 [place] Drug form: TAB, [id number], Dosing Weight 96.023, kg, Start date: 02/12/16 16:00:00 CDT, Duration: 30 day, Stop date: 03/12/16 16:00:00 CDTNotes: (Same as: Diflucan) Dilaudid 1.5 mg, 0.75 No Longer The mL, Route: Active 2015 [place] IVP, Drug form: INJ, Q4H, Dosing Weight 96.023, kg, PRN Pain Score 7-10, Start date: 02/12/16 14:19:00 CDT, Stop date: 03/13/16 14:18:00 CDTNotes: Same as: Dilaudid gabapentin 600 mg, 2 cap, No Longer The Route: PO, Active 2015 [place] Drug form: CAP, TID, Dosing Weight 97.273, kg, Start date: 02/12/16 13:00:00 CDT, Duration: 30 day, Stop date: 03/13/16 9:00:00 CDTNotes: (Same as: Neurontin) Naloxone 0.4 mg, 1 mL, Inactive The Route: IVP, 2015 [place] Drug form: INJ, Q2MIN, Dosing Weight 96.023, kg, PRN Narcotic Reversal, Start date: 02/12/16 9:59:00 CDT, Duration: 8 doses or times, Stop date: Limited # of timesNotes: Same as Narcan Lorazepam 0.5 mg, 0.25 Inactive The mL, Route: 2015 [place] IVP, Drug form: INJ, Q20Min, Dosing Weight 96.023, kg, PRN Anxiety, Start date: 02/12/16 9:59:00 CDT, Duration: 3 doses or times, Stop date: Limited # of timesNotes: (Same as: Ativan) Ondansetron 4 mg, Route: Inactive The IVP, ONCE, 2015 [place] Dosing Weight 96.023, kg, PRN Nausea & Vomiting, Start date: 02/12/16 9:59:00 CDT Glycopyrrolate 0.2 mg, 1 mL, Inactive The Route: IVP, 2015 [place] Drug form: INJ, Q5Min, Dosing Weight 96.023, kg, PRN Bradycardia, Start date: 02/12/16 9:59:00 CDT, Duration: 3 doses or times, Stop date: Limited # of timesNotes: (Same as: [place] Antonio) Flumazenil 0.2 mg, 2 mL, Inactive The Route: IVP, 2015 [place] Drug form: INJ, PRN, Dosing Weight 96.023, kg, PRN Benzodiazepine Reversal, Initial dose, Start date: 02/12/16 9:59:00 CDT, Duration: 30 day, Stop date: 03/13/16 9:58:00 CDTNotes: (Same as: Romazicon) Fentanyl 25 microgram, Inactive The 0.5 mL, Route: 2015 [place] IVP, Drug form: INJ, Q5Min, Dosing Weight 96.023, kg, PRN Pain Score 4-6, Start date: 02/12/16 9:59:00 CDT, Duration: 4 doses or times, Stop date: Limited # of timesNotes: (Same as: Sublimaze) Preservative free. Hydralazine 10 mg, 0.5 mL, Inactive The Route: IVP, 2015 [place] Drug form: INJ, Q20Min, Dosing Weight 96.023, kg, PRN Elevated BP, Start date: 02/12/16 9:59:00 CDT, Duration: 2 doses or times, Stop date: Limited # of timesNotes: (Same as: Apresoline) Push over 5 minutes Hydromorphone 0.5 mg, 0.5 Inactive The mL, Route: 2015 [place] IVP, Drug form: INJ, Q5Min, Dosing Weight 96.023, kg, PRN Pain Score 7-10, Start date: 02/12/16 9:59:00 CDT, Duration: 4 doses or times, Stop date: Limited # of timesNotes: Same as: Dilaudid Labetalol 10 mg, 2 mL, Inactive The Route: IVP, 2015 [place] Drug form: INJ, Q5Min, Dosing Weight 96.023, kg, PRN Elevated BP, Start date: 02/12/16 9:59:00 CDT, Duration: 5 doses or times, Stop date: Limited # of times fentaNYL (ANES) Route: IV, Inactive The Drug form: 2015 [place] INJ, ONCE, Stop date: 02/12/16 8:40:00 CDT propofol (ANES) Route: IV, Inactive The Drug form: 2015 [place] INJ, ONCE, Stop date: 02/12/16 8:40:00 CDT lidocaine (ANES) Route: IV, Inactive The Drug form: 2015 [place] INJ, ONCE, Stop date: 02/12/16 8:40:00 CDT LR 1000 mL INJ Route: IV, Inactive The (ANES) Total Volume: 2015 [place] 1,000, Start date: 02/12/16 7:55:00 CDT, Stop date: 02/12/16 8:55:00 CDT Ceftriaxone 2 gm, Route: No Longer The IVPB, [id number], Active 2015 [place] Dosing Weight 96.023, kg, Start date: 02/11/16 13:00:00 CDT, Duration: 5 day, Stop date: 02/15/16 13:00:00 CDTNotes: (Same As: Rocephin). Use with 100 mL NS and infuse over 30 min MEDICATION WASTE Product Size: 2000 mg Product Wasted: ___ mg Dilaudid 1 mg, 1 mL, No Longer The Route: IVP, Active 2015 [place] Drug form: INJ, Q6H, Dosing Weight 96.023, kg, PRN Pain Score 7-10, Start date: 02/11/16 8:37:00 CDT, Duration: 30 day, Stop date: 03/12/16 8:36:00 CDTNotes: Same as: Dilaudid vancomycin 750 mg, 150 No Longer The mL, Route: Active 2015 [place] IVPB, Drug form: INJ, Q24H, Start date: 02/11/16 6:00:00 CDT, Duration: 30 day, Stop date: 03/11/16 6:00:00 CDTNotes: TIME CRITICAL MEDICATION Same as: Vancocin Infusion rate 2000 mg: infuse over 2.5 hours metoprolol 50 mg, 1 tab, No Longer The Route: PO, Active 2015 [place] Drug form: ERTAB, Daily, Start date: 02/10/16 9:00:00 CDT, Duration: 30 day, Stop date: 03/10/16 9:00:00 CDTNotes: (Same as: Toprol XL) May split tab, but do not crush. Alprazolam 1 MG 1 mg, 1 tab, No Longer The Oral Tablet Route: PO, Active 2015 [place] [Xanax] Drug form: TAB, Q12H, Dosing Weight 96.023, kg, PRN Anxiety, Start date: 02/10/16 8:19:00 CDT, Duration: 30 day, Stop date: 03/11/16 8:18:00 CDTNotes: With food or milk (Same as: Xanax) vancomycin 750 mg, 150 Inactive The mL, Route: 2015 [place] IVPB, Drug form: INJ, ONCE, Start date: 02/10/16 5:00:00 CDT, Stop date: 02/10/16 5:00:00 CDTNotes: TIME CRITICAL MEDICATION Same as: Vancocin Infusion rate 2001 mg: infuse over 2.5 hours Anoro 62.5mcg/25 Anoro No Longer The mcg 62.5mcg/25 Active 2015 [place] mcg, 1 puff, Route: INHALATION, RBID, 02/09/16 20:00:00 CDT, Duration: 30 day, Stop date: 03/10/16 8:00:00 CDT ketOROLAC 30 mg/mL 60 mg, Route: Inactive The injectable IVP, Drug 2015 [place] solution form: INJ, ONCE, Dosing Weight 96.023, kg, Start date: 02/09/16 17:40:00 CDT, Duration: 1 doses or times, Stop date: 02/09/16 17:40:00 CDT Vancomycin Dosing Vancomycin No Longer The per RPh Dosing per Active 2015 [facility], [facility] Drug form: MISC, Route: MISC, PRN, PRN Other -See Comment, 02/09/16 14:51:00 CDT, Duration: 30 day, Stop date: 03/10/16 14:50:00 CDT Dilaudid 1 mg, 1 mL, No Longer The Route: IVP, Active 2015 [place] Drug form: INJ, Q4H, Dosing Weight 96.023, kg, PRN Pain Score 7-10, Start date: 02/09/16 13:01:00 CDT, Duration: 30 day, Stop date: 03/10/16 13:00:00 CDTNotes: Same as: Dilaudid Sodium Chloride 500 mL, 500 Inactive The 0.154 MEQ/ML ml/hr, Infuse 2015 [place] Injectable Over: 1 hr, Solution Route: IV, 500, Drug form: INJ, ONCE, Priority: STAT, Dosing Weight 96.023 kg, Start date: 02/09/16 12:59:00 CDT, Duration: 1 doses or times, Stop date: 02/09/16 12:59:00 CDT pantoprazole 40 mg, 1 tab, No Longer The Route: PO, Active 2015 [place] Drug form: ECTAB, Before Breakfast, Dosing Weight 96.023, kg, Start date: 02/09/16 9:00:00 CDT, Stop date: 03/09/16 7:30:00 CDTNotes: Tablet should not be chewed or crushed. (Same as: Protonix) chlorhexidine 1 appl, Route: No Longer The gluconate 40 MG/ML BATHE, Active 2015 [place] Medicated Liquid Q-M-W-F, Drug Soap form: SOAP, Start date: 02/09/16 9:00:00 CDT, Duration: 30 day, Stop date: 03/08/16 9:00:00 CDTNotes: (Same As: Milla) Simvastatin 20 mg, 1 tab, No Longer The Route: PO, Active 2015 [place] Drug form: TAB, Bedtime, Dosing Weight 96.023, kg, Start date: 02/08/16 21:00:00 CDT, Duration: 30 day, Stop date: 03/08/16 21:00:00 CDTNotes: (Same as: Zocor) Cefuroxime 1.5 gm, Route: No Longer The IVPB, [id number], Active 2015 [place] Dosing Weight 96.023, kg, Start date: 02/08/16 21:00:00 CDT, Duration: 3 doses or times, Stop date: 02/09/16 13:00:00 CDT Neutra-Phos 2 pkt, Route: No Longer The PO, Drug Form: Active 2015 [place] PDR/REC, Dosing Weight 96.023, kg, PRN, PRN [...] phosphate + sodium mL, Route: Active 2015 [place] chloride 0.9% 500 IVPB, Drug ml INJ [...] phosphate + sodium mL, Route: Active 2015 [place] chloride 0.9% INJ IVPB, PRN, 250 mL Dosing Weight 96.023, kg, PRN Abnormal Lab Result, Start date: 02/08/16 20:04:00 CDT, Duration: 30 day, Stop date: 03/09/16 20:03:00 CDT, FOR ICU USE ONLYNotes: (Same as: K Phosphate.) 1 mMol phoshate has 1.47 mEq potassium Infuse over 4 hours Magnesium Oxide 800 mg, 2 tab, No Longer The Route: PO, Active 2015 [place] Drug form: TAB, PRN, Dosing Weight 96.023, kg, PRN Abnormal Lab Result, FOR ICU USE ONLY, Start date: 02/08/16 20:04:00 CDT, Duration: 30 day, Stop date: 03/09/16 20:03:00 CDTNotes: (Same as: Mag-Ox 400) Magnesium oxide [id number] elemental magnesium Dose=____mg magnesium oxide (___mg elemental magnesium) Magnesium Sulfate 2 gm, 50 mL, No Longer The Route: IVPB, Active 2015 [place] Drug form: INJ, PRN, Dosing Weight 96.023, kg, PRN Abnormal Lab Result, Start date: 02/08/16 20:04:00 CDT, Duration: 30 day, Stop date: 03/09/16 20:03:00 CDT, FOR ICU USE ONLYNotes: WASTE: F/P - Sink; E - Municipal Trash Bin potassium chloride 20 mEq, 15 mL, No Longer The Route: NJ, Active 2015 [place] Drug form: LIQ, PRN, Dosing Weight 96.023, kg, PRN Abnormal Lab Result, Start date: 02/08/16 20:04:00 CDT, Duration: 30 day, Stop date: 03/09/16 20:03:00 CDT, FOR ICU USE ONLYNotes: (Same as: Potassium Chloride) sodium phosphate + 15 mmol, 5 mL, No Longer The sodium chloride Route: IVPB, Active 2015 [place] 0.9% INJ 250 mL PRN, Dosing Weight 96.023, kg, PRN Abnormal Lab Result, Start date: 02/08/16 20:04:00 CDT, Duration: 30 day, Stop date: 03/09/16 20:03:00 CDT, FOR ICU USE ONLY sodium phosphate + 45 mmol, 15 No Longer The sodium chloride mL, Route: Active 2015 [place] 0.9% 500 ml INJ IVPB, Drug 500 mL form: INJ, PRN, Dosing Weight 96.023, kg, PRN Abnormal Lab Result, Start date: 02/08/16 20:04:00 CDT, Duration: 30 day, Stop date: 03/09/16 20:03:00 CDT, FOR ICU USE ONLY Calcium Carbonate 500 mg, 1 tab, No Longer The 500 MG Chewable Route: PO, Active 2015 [place] Tablet Drug form: CHEWTAB, PRN, Dosing Weight 96.023, kg, PRN Abnormal Lab Result, FOR ICU USE ONLY, Start date: 02/08/16 20:04:00 CDT, Duration: 30 day, Stop date: 03/09/16 20:03:00 CDTNotes: (Same As: Tums) Calcium Carbonate 500 ob=050 mg elemental calcium Dose= mg calcium carbonate ( mg elemental calcium) Calcium Gluconate 1 gm, 10 mL, No Longer The Route: IVPB, Active [place] PRN, Dosing Weight 96.023, kg, PRN Abnormal Lab Result, Start date: 02/08/16 20:04:00 CDT, Duration: 30 day, Stop date: 03/09/16 20:03:00 CDT, FOR ICU USE ONLYNotes: WASTE: F/P - Sink; E - Municipal Trash Bin Albuterol 0.83 2.49 mg, 3 mL, No Longer The MG/ML Inhalant Route: NEB, Active 2015 [place] Solution Drug form: SOLN, PRN, Dosing Weight 96.023, kg, PRN Respiratory Protocol, Start date: 02/08/16 20:04:00 CDT, Duration: 30 day, Stop date: 03/09/16 20:03:00 CDTNotes: SEE RT DOCUMENTATION (Same as: Proventil) Dextrose 50% 25 gm, 50 mL, No Longer The Syringe Route: IVP, Active 2015 [place] Drug Form: INJ, Dosing Weight 96.023, kg, PRN, PRN Blood Glucose Results, Start date: 02/08/16 20:04:00 CDT, Duration: 30 day, Stop date: 03/09/16 20:03:00 CDT Docusate 100 mg, 1 cap, No Longer The Route: PO, Active 2015 [place] Drug form: CAP, BID, Dosing Weight 96.023, kg, PRN Constipation, Start date: 02/08/16 20:04:00 CDT, Duration: 30 day, Stop date: 03/09/16 20:03:00 CDTNotes: (Same as: Colace) (Do Not Crush) Glucagon 1 mg, Route: No Longer The IM, Drug form: Active 2015 [place] PDR/INJ, PRN, Dosing Weight 96.023, kg, PRN Blood Glucose Results, Start date: 02/08/16 20:04:00 CDT, Duration: 30 day, Stop date: 03/09/16 20:03:00 CDT Acetaminophen 325 2 tab, Route: No Longer The MG / Hydrocodone PO, Drug Form: Active 2015 [place] Bitartrate 5 MG TAB, Dosing Oral Tablet Weight 96.023, kg, Q4H, PRN Pain Score 4-6, Start date: 02/08/16 20:04:00 CDT, Duration: 30 day, Stop date: 03/09/16 20:03:00 CDTNotes: (Same as: [place] 325/5) Do not exceed 4gm/day of acetaminophen. Acetaminophen 650 mg, 2 tab, No Longer The Route: PO, Active 2015 [place] Drug form: TAB, Q4H, Dosing Weight 96.023, kg, PRN Pain 1-3/Temp > 100.4 F, Start date: 02/08/16 20:04:00 CDT, Duration: 30 day, Stop date: 03/09/16 20:03:00 CDTNotes: Do not exceed 4 gm/day. (Same as: Tylenol) D5W /2NS + KCL 1,000 mL, No Longer The 20mEq/L 1000ml Rate: 50 Active 2015 [place] (Premix) 1,000 mL ml/hr, Infuse over: 20 hr, Route: IV, Dosing Weight 96.023 kg, Total Volume: 1,000, Start date: 02/08/16 20:04:00 CDT, Duration: 30 day, Stop date: 03/09/16 20:03:00 CDTNotes: PREMIX IV - Do Not Alter WASTE: F/P - Sink; E - Municipal Trash Bin Ondansetron 4 mg, 2 mL, Inactive The Route: IVP2015 [place] Drug form: INJ, ONCE, Dosing Weight 96.023, kg, PRN Nausea & Vomiting, Start date: 02/08/16 9:59:00 CDTNotes: (Same as: Zofran) MEDICATION WASTE Product Size: 4 mg Product Wasted: ___ mg Promethazine 6.25 mg, 25 Inactive The mL, Route: 2015 [place] IVPB, Drug form: SOLN, ONCE, Dosing Weight 96.023, kg, PRN Nausea & Vomiting, Start date: 02/08/16 9:59:00 CDT Flumazenil 0.2 mg, 2 mL, Inactive The Route: IVP, 2015 [place] Drug form: INJ, PRN, Dosing Weight 96.023, kg, PRN Benzodiazepine Reversal, Initial dose, Start date: 02/08/16 9:59:00 CDT, Duration: 30 day, Stop date: 03/09/16 9:58:00 CDTNotes: (Same as: Romazicon) Naloxone 0.4 mg, 1 mL, Inactive The Route: IVP, 2015 [place] Drug form: INJ, Q2MIN, Dosing Weight 96.023, kg, PRN Narcotic Reversal, Start date: 02/08/16 9:59:00 CDT, Duration: 8 doses or times, Stop date: Limited # of timesNotes: Same as Narcan Fentanyl 50 microgram, Inactive The 1 mL, Route: 2015 [place] IVP, Drug form: INJ, Q5Min, Dosing Weight 96.023, kg, PRN Pain Score 7-10, Start date: 02/08/16 9:59:00 CDT, Duration: 2 doses or times, Stop date: Limited # of timesNotes: (Same as: Sublimaze) Preservative free. Hydromorphone 1 mg, 1 mL, Inactive The Route: IVP, 2015 [place] Drug form: INJ, Q5Min, Dosing Weight 96.023, kg, PRN Pain Score 7-10, Start date: 02/08/16 9:59:00 CDT, Duration: 4 doses or times, Stop date: Limited # of timesNotes: Same as: Dilaudid Labetalol 10 mg, 2 mL, Inactive The Route: IVP, 2015 [place] Drug form: INJ, Q5Min, Dosing Weight 96.023, kg, PRN Elevated BP, Start date: 02/08/16 9:59:00 CDT, Duration: 5 doses or times, Stop date: Limited # of times ondansetron (ANES) Route: IV, Inactive The Drug form: 2015 [place] INJ, ONCE, Stop date: 02/08/16 9:40:00 CDT hydromorphone Route: IV, Inactive The (ANES) Drug form: 2015 [place] INJ, ONCE, Stop date: 02/08/16 9:15:00 CDT LR 1000 mL INJ Route: IV, Inactive The (ANES) Total Volume: 2015 [place] 1,000, Start date: 02/08/16 9:08:00 CDT, Stop date: 02/08/16 10:08:00 CDT heparin (ANES) Route: IV, Inactive The Drug form: 2015 [place] INJ, ONCE, Stop date: 02/08/16 8:55:00 CDT fentaNYL (ANES) Route: IV, Inactive The Drug form: 2015 [place] INJ, ONCE, Stop date: 02/08/16 8:40:00 CDT propofol (ANES) Route: IV, Inactive The Drug form: 2015 [place] INJ, ONCE, Stop date: 02/08/16 8:40:00 CDT lidocaine (ANES) Route: IV, Inactive The Drug form: 2015 [place] INJ, ONCE, Stop date: 02/08/16 8:40:00 CDT midazolam (ANES) Route: IV, Inactive The Drug form: 2015 [place] SOLN, ONCE, Stop date: 02/08/16 8:40:00 CDT rocuronium (ANES) Route: IV, Inactive The Drug form: 2015 [place] INJ, ONCE, Stop date: 02/08/16 8:40:00 CDT piperacillin-tazob IV, ONCE Inactive The actam (ANES) [place] famotidine (ANES) Route: IV, Inactive The Drug form: 2015 [place] INJ, ONCE, Stop date: 02/08/16 8:25:00 CDT [...] No Longer The Route: PO, Active 2015 [place] Drug form: TAB, Q4H, PRN Pain 1-3/Temp > 100.4 F, Start date: 02/07/16 10:35:00 CDT, Duration: 30 day, Stop date: 03/08/16 10:34:00 CDTNotes: (Same as: Roxicodone) oxyCODONE 10 mg 15 mg, Route: Inactive The extended release PO, Drug form: 2015 [place] ERTAB, Q6H, Start date: 02/05/16 18:00:00 CDT, Duration: 30 day, Stop date: 03/06/16 12:00:00 CDT Roxicodone 15 mg, 3 tab, No Longer The Route: PO, Active 2015 [place] Drug form: TAB, Q6Hnow, Start date: 02/05/16 15:21:00 CDT, Stop date: 03/06/16 11:00:00 CDTNotes: (Same as: Roxicodone) Dilaudid 2 mg, 1 mL, No Longer The Route: IV, Active 2015 [place] Drug form: INJ, Q2H, Dosing Weight 97.273, kg, PRN Pain Score 7-10, Start date: 02/05/16 15:04:00 CDT, Duration: 30 day, Stop date: 03/06/16 15:03:00 CDTNotes: Same as: Dilaudid sodium chloride 1,000 mL, No Longer The 0.9% 1000 ml INJ Rate: 50 Active 2015 [place] 1,000 mL ml/hr, Infuse over: 20 hr, Route: IV, Dosing Weight 97.273 kg, Total Volume: 1,000, Start date: 02/04/16 11:14:00 CDT, Stop date: 03/05/16 11:13:00 CDT vancomycin 750 mg, 150 No Longer The mL, Route: Active 2015 [place] IVPB, Drug form: INJ, [id number], Start date: 02/02/16 15:00:00 CDT, Duration: 30 day, Stop date: 03/03/16 3:00:00 CDTNotes: TIME CRITICAL MEDICATION Same as: Vancocin Infusion rate 2000 mg: infuse over 2.5 hours atorvastatin 40 mg, 1 tab, No Longer The Route: PO, Active 2015 [place] Drug form: TAB, Bedtime, Dosing Weight 97.273, kg, Start date: 02/01/16 21:00:00 CDT, Duration: 30 day, Stop date: 03/01/16 21:00:00 CDTNotes: (Same as: Lipitor) Vancomycin 1 ea, Route: Inactive The [facility] [place] 2015 [place] Weight 97.273, kg, ONCALL, Start date: 02/01/16 15:00:00 CDT, Duration: 1 doses or times, Pharmacy to dose Acetaminophen 325 1 tab, Route: No Longer The MG / Hydrocodone PO, Drug Form: Active 2015 [place] Bitartrate 10 MG TAB, Dosing Oral Tablet [[place] Weight 97.273, 10/325] kg, Q6H, PRN Pain Score 4-6, Start date: 02/01/16 13:10:00 CDT, Duration: 30 day, Stop date: 03/02/16 13:09:00 CDTNotes: Do not exceed 4gm/day of acetaminophen. (Same as: [place] 325/10) Tylenol 650 mg, 2 tab, No Longer The Route: PO, Active 2015 [place] Drug form: TAB, Q6H, Dosing Weight 97.273, kg, PRN Pain Score 1-3, Start date: 02/01/16 13:02:00 CDT, Duration: 30 day, Stop date: 03/02/16 13:01:00 CDTNotes: Do not exceed 4 gm/day. (Same as: Tylenol) Vancomycin 1,000 mg, No Longer The Route: IVPB, Active 2015 [place] [id number], Dosing Weight 97.273, kg, Start date: 02/01/16 13:00:00 CDT, Stop date: 03/02/16 1:00:00 CDTNotes: TIME CRITICAL MEDICATION (Same As: Vancocin) Infusion rate 2001 mg: infuse over 2.5 hours MEDICATION WASTE Product Size: 1000 mg Product Wasted: ___ mg Zosyn 3.375 gm, No Longer The Route: IVPB, Active 2015 [place] [id number], Dosing Weight 97.273, kg, CrCl Notes: [...] 1 tab, No Longer The Route: PO, [place] Drug form: TAB, BID, Dosing Weight [...] Tartrate 100 MG Route: PO, Active 2015 [place] Extended Release Drug form: Tablet [Toprol] ERTAB, Daily, Start date: 02/01/16 9:00:00 CDT, Duration: 30 day, Stop date: 03/01/16 9:00:00 CDTNotes: (Same as: Toprol XL) May split tab, but do not crush. Alprazolam 2 MG 2 mg, 2 tab, No Longer The Oral Tablet Route: PO, Active 2015 [place] Drug form: TAB, BID, Dosing Weight 97.273, kg, PRN Anxiety, Start date: 02/01/16 8:23:00 CDT, Duration: 30 day, Stop date: 03/02/16 8:22:00 CDTNotes: With food or milk (Same as: Xanax) Albuterol 0.833 3 ml, Route: No Longer The MG/ML / NEB, Drug Active 2015 [place] Ipratropium Form: SOLN, [place] 0.167 Dosing Weight MG/ML Inhalant 97.273, kg, Solution PRN, PRN Respiratory Protocol, Start date: 02/01/16 8:22:00 CDT, Duration: 30 day, Stop date: 03/02/16 8:21:00 CDTNotes: (Same as: Duoneb) Zofran 4 mg, 2 mL, No Longer The Route: IVP, Active 2015 [place] Drug form: INJ, Q6H, Dosing Weight 97.273, kg, PRN Nausea, Start date: 02/01/16 1:24:00 CDT, Duration: 30 day, Stop date: 03/02/16 1:23:00 CDTNotes: (Same as: Zofran) MEDICATION WASTE Product Size: 4 mg Product Wasted: ___ mg Dilaudid 2 mg, 2 mL, No Longer The Route: IVP, Active 2015 [place] Drug form: INJ, Q4H, Dosing Weight 97.273, kg, PRN Pain Score 7-10, Start date: 02/01/16 1:23:00 CDT, Duration: 30 day, Stop date: 03/02/16 1:22:00 CDTNotes: Same as: Dilaudid Acetaminophen 300 1 tab, PO, No Longer The MG / Codeine BID, PRN pain, Active 2015 [place] Phosphate 30 MG # 28 tab, 0 Oral Tablet Refill(s) lisinopril 10 mg 10 mg=1 tab, Active The oral tablet PO, Daily, # 2015 [place] 30 tab, 0 Refill(s) metoprolol 100 mg=1 tab, Active The tartrate 100 mg PO, BID, # 60 2015 [place] oral tablet tab, 0 Refill(s) Centrum Adults 1 tab, PO, Active The oral tablet Daily, 0 2015 [place] Refill(s) doxazosin 1 mg 1 mg=1 tab, Active The oral tablet PO, Daily, # 2015 [place] 30 tab, 0 Refill(s) atorvastatin 40 mg 40 mg=1 tab, Active The oral tablet PO, Bedtime, # 2015 [place] 30 tab, 0 Refill(s) Anoro Ellipta 62.5 1 puff, Active The mcg-25 mcg INHALER, 2015 [place] inhalation powder Daily, # 1 ea, 3 Refill(s) Alprazolam 2 MG 2 mg=1 tab, Active The Oral Tablet PO, BID, PRN 2015 [place] Anxiety, # 20 tab, 0 Refill(s) Furosemide 20 MG 20 mg=1 tab, Active The Oral Tablet PO, Daily, # 2015 [place] 30 tab, 0 Refill(s) cilostazol 100 mg 100 mg=1 tab, Active The oral tablet PO, BID, # 60 2015 [place] tab, 0 Refill(s) Acetaminophen 650 mg, Route: Inactive The PO, Drug form: 2015 [place] TAB, ONCE, Dosing Weight 95, kg, Priority: STAT, Start date: 01/31/16 22:28:00 CDT, Stop date: 01/31/16 22:28:00 CDT Piperacillin / 3.375 gm, Inactive The tazobactam Route: IVPB, 2015 [place] ONCE, Dosing Weight 95, kg, Priority: STAT, Start date: 01/31/16 17:57:00 CDT, Stop date: 01/31/16 17:57:00 CDTNotes: (Same as: Zosyn) Dosing based on Piperacillin component MEDICATION WASTE Product Size: 3375 mg Product Wasted: ___ mg Vancomycin 1,000 mg, Inactive The Route: IVPB, 2015 [place] ONCE, Dosing Weight 95, kg, Priority: STAT, Start date: 01/31/16 17:57:00 CDT, Stop date: 01/31/16 17:57:00 CDT, TIME CRITICAL MEDICATIONNote s: TIME CRITICAL MEDICATION (Same As: Vancocin) Infusion rate 2001 mg: infuse over 2.5 hours MEDICATION WASTE Product Size: 1000 mg Product Wasted: ___ mg Sodium Chloride 1,000 mL, Inactive The 0.154 MEQ/ML 2,000 ml/hr, 2015 [place] Injectable Infuse Over: Solution 30 minutes, Route: IV, 1,000, Drug form: INJ, ONCE, Priority: STAT, Dosing Weight 95 kg, Start date: 01/31/16 17:04:00 CDT, Duration: 1 doses or times, Stop date: 01/31/16 17:04:00 CDT Acetaminophen 325 1 tab, Route: Inactive The MG / Hydrocodone PO, Drug Form: 2015 [place] Bitartrate 10 MG TAB, Dosing Oral Tablet [[place] Weight 95, kg, 10/325] ONCE, STAT, Start date: 01/31/16 16:57:00 CDT, Stop date: 01/31/16 16:57:00 CDTNotes: Do not exceed 4gm/day of acetaminophen. (Same as: [place] 325/10) Amlodipine 10 mg, PO, Active The Daily, 0 2015 [place] Refill(s) gabapentin 300 mg, PO, Active The BID, 0 2015 [place] Refill(s) atorvastatin 20 mg, 1 tab, Inactive The Route: PO, 2014 [place] Drug form: TAB, Bedtime, Dosing Weight 98.267, kg, Start date: 02/16/15 21:00:00, Duration: 30 day, Stop date: 03/17/15 21:00:00Notes: (Same As: Lipitor) lovastatin 20 mg 20 mg=1 tab, Active The oral tablet PO, Bedtime, # [place] 30 tab, 0 Refill(s), given to patient Hydrochlorothiazid 1 tab, Route: No Longer The e 12.5 MG / PO, Drug Form: Active 2014 [place] Lisinopril 20 MG TAB, Dosing Oral Tablet Weight 98.267, kg, Daily, Start date: 02/16/15 9:00:00, Duration: 30 day, Stop date: 03/17/15 9:00:00 Prinivil 20 mg, 1 tab, Inactive The Route: PO, 2014 [place] Drug form: TAB, Daily, Start date: 02/16/15 9:00:00, Duration: 30 day, Stop date: 03/17/15 9:00:00Notes: (Same as: Prinivil, Zestril) metoprolol 25 mg, 1 tab, Inactive The tartrate Route: PO, 2014 [place] Drug form: TAB, Q12H, Dosing Weight 98.267, kg, Start date: 02/16/15 9:00:00, Duration: 30 day, Stop date: 03/17/15 21:00:00Notes: (Same as: Lopressor) Microzide 12.5 mg, 1 Inactive The tab, Route: 2014 [place] PO, Drug form: TAB, Daily, Start date: 02/16/15 9:00:00, Duration: 30 day, Stop date: 03/17/15 9:00:00Notes: (Same as: Hydrodiuril). Give with food. pneumococcal 0.5 mL, Route: Inactive The capsular IM, Drug Form: 2014 [place] polysaccharide INJ, Daily, type 1 vaccine / [...] The Oral Tablet tab, Route: Active 2014 [place] [Xanax] PO, Drug form: TAB, BID, Dosing Weight 98.267, kg, PRN Anxiety, Start date: 02/15/15 23:39:00, Duration: 30 day, Stop date: 03/17/15 23:38:00Notes: With food or milk (Same as: Xanax) Acetaminophen 325 1 tab, Route: No Longer The MG / Hydrocodone PO, Drug Form: Active 2014 [place] Bitartrate 5 MG TAB, Dosing Oral Tablet [[place] Weight 98.267, 5/325] kg, Q12H, PRN Pain 1-3/Temp > 100.4 F, Start date: 02/15/15 23:39:00, Duration: 30 day, Stop date: 03/17/15 23:38:00Notes: (Same as: [place] 325/5) Do not exceed 4gm/day of acetaminophen. Tessalon Perles 200 mg, 2 cap, No Longer The Route: PO, Active 2014 [place] Drug form: CAP, TID, Dosing Weight 13.636, kg, Start date: 02/15/15 20:00:00, Duration: 30 day, Stop date: 03/17/15 17:00:00Notes: (Same As: Tessalon Perles) "Do Not Crush" Acetaminophen 325 1 tab, PO, Active The MG / Hydrocodone Q12H, PRN 2014 [place] Bitartrate 5 MG Pain, # 30 Oral Tablet [[place] tab, 0 5/325] Refill(s) Alprazolam 0.25 MG 0.25 mg=1 tab, Active The Oral Tablet PO, BID, PRN 2014 [place] [Xanax] Anxiety, Stress, # 20 tab, 0 Refill(s) metoprolol 25 mg, PO, Active The tartrate BID, 0 2014 [place] Refill(s) NS 1,000 mL 1,000 mL, No Longer The Rate: 75 Active 2014 [place] ml/hr, Infuse over: 13.3 hr, Route: IV, Dosing Weight 13.636 kg, Total Volume: 1,000, Start date: 02/15/15 18:04:00, Duration: 30 day, Stop date: 03/17/15 18:03:00 Xopenex 0.63 mg, 3 mL, No Longer The Route: NEB, Active 2014 [place] Drug form: SOLN, PRN, Dosing Weight 13.636, kg, PRN Respiratory Protocol, Start date: 02/15/15 18:03:00, Duration: 30 day, Stop date: 03/17/15 18:02:00Notes: SEE RT DOCUMENTATION (Same as:Xopenex) Non-Formulary Acetaminophen 325 2 tab, Route: No Longer The MG / Hydrocodone PO, Drug Form: Active 2014 [place] Bitartrate 10 MG TAB, Dosing Oral Tablet [[place] Weight 13.636, 10/325] kg, Q4H, PRN Pain Score 4-6, Start date: 02/15/15 18:03:00, Duration: 30 day, Stop date: 03/17/15 18:02:00Notes: Do not exceed 4gm/day of acetaminophen. (Same as: [place] 325/10) Albuterol 0.833 3 ml, Route: No Longer The MG/ML / NEB, Drug Active 2014 [place] Ipratropium Form: SOLN, [place] 0.167 Dosing Weight MG/ML Inhalant 13.636, kg, Solution [DuoNeb] PRN, PRN Respiratory Protocol, Start date: 02/15/15 15:51:00, Duration: 30 day, Stop date: 03/17/15 15:50:00Notes: (Same as: Duoneb) Aspirin 324 mg, 4 tab, Inactive The Route: CHEW, 2014 [place] Drug form: CHEWTAB, ONCE, Dosing Weight 13.636, kg, Priority: STAT, Start date: 02/15/15 15:00:00, Stop date: 02/15/15 15:00:00Notes: Take with food. tramadol 100 mg=2 tab, Active The hydrochloride 50 PO, Q6H, PRN 2014 [place] MG Oral Tablet pain, X 3 day, [Ultram] # 20 tab, 0 Refill(s) Tylenol 650 mg, 2 tab, Inactive The Route: PO, 2014 [place] Drug form: TAB, ONCE, Dosing Weight 108.182, kg, Pediatric Dosing, Priority: STAT, Start date: 02/09/15 15:47:00, Stop date: 02/09/15 15:47:00Notes: Do not exceed 4 gm/day. (Same as: Tylenol) Sodium Chloride 1,000 mL, Inactive The 0.154 MEQ/ML 1,000 ml/hr, 2014 [place] Injectable Infuse Over: 1 Solution hr, Route: IV, 1,000, Drug form: INJ, ONCE, Priority: STAT, Dosing Weight 104.545 kg, Start date: 01/23/15 14:39:00, Duration: 1 doses or times, Stop date: 01/23/15 14:39:00 Saline Flush 0.9% 10 mL, Route: Inactive The IVP, Drug 2014 [place] Form: INJ, Dosing Weight 104.545, kg, PRN, PRN Line Flush, Start date: 01/23/15 14:39:00, Duration: 30 day, Stop date: 02/22/15 14:38:00Notes: preservative free. Allergies, Adverse Reactions, Alerts Substance Category Reaction Severity Reaction Status Date Comments Source type Reported morphine Assertion Drug Active The allergy [place] Immunizations Immunization Date Site Status Last Updated Comments Source Given pneumococcal Right completed Ashok The 23-valent 5 deltoid [place] vaccine Results Order Name Results Value Reference Date Interpretation Comments Source Range BLOOD BANK RBC product Product available 04/04 The RESULTS (04/04/16 11:22 AM) /2015 [place] BLOOD BANK ABO/Rh B POS 04/04 The RESULTS /2015 [place] BLOOD BANK Antibody Negative 04/04 The RESULTS Scrn (04/04/16 11:20 AM) [place] URINE AND UA <=1.0 0.1 - 1.0 03/14 The STOOL Urobilinogen mg/dL /2015 [place] URINE AND UA RBC 1 0 - 2 03/14 The STOOL /2015 [place] URINE AND UA WBC 3 0 - 5 03/14 The STOOL /2015 [place] URINE AND UA Sq Epi Few /LPF Few /LPF 03/14 The STOOL /2015 [place] URINE AND UA Mucus Few /LPF None Seen 03/14 The STOOL /LPF /2015 [place] URINE AND UA Leuk Est Negative Negative 03/14 The STOOL (03/14/16 2:08 AM) /2015 [place] URINE AND UA Protein Negative Negative 03/14 The STOOL mg/dL mg/dL /2015 [place] URINE AND UA pH 5.0 5.0 - 8.0 03/14 The STOOL /2015 [place] URINE AND UA Spec Grav 1.009 <=1.030 03/14 The STOOL /2015 [place] URINE AND UA Turbidity Clear Clear 03/14 The STOOL (03/14/16 2:08 AM) /2015 [place] URINE AND UA Ketones Negative Negative 03/14 The STOOL mg/dL mg/dL /2015 [place] URINE AND UA Glucose Negative Negative 03/14 The STOOL mg/dL mg/dL /2015 [place] URINE AND UA Color Yellow Yellow 03/14 The STOOL *NA* /2015 [place] (03/14/16 2:08 AM) URINE AND UA Nitrite Negative Negative 03/14 The STOOL (03/14/16 2:08 AM) /2015 [place] URINE AND UA Blood Negative Negative 03/14 The STOOL (03/14/16 2:08 AM) /2015 [place] URINE AND UA Bili Negative Negative 03/14 The STOOL *NA* /2015 [place] (03/14/16 2:08 AM) CHEM PANEL Lactic Acid 0.8 0.5 - 2.2 03/14 The Lvl /2015 [place] CHEM PANEL Procalcitoni <0.05 0.00 - 03/14 The n Lvl ng/mL 0. [place] BLOOD BANK Antibody Negative 03/14 The RESULTS Scrn (03/13/16 9:07 PM) /2015 [place] BLOOD BANK ABO/Rh B POS 03/14 The RESULTS [place] CHEM PANEL eGFR 43 03/14 Result MH Comment: [place] eGFR is calculated using the CKD-EPI formula. In most young, healthy individuals the eGFR will be >90 mL/min/1.73m2 . The eGFR declines with age. An eGFR of 60-89 may be normal in some populations, particularly the elderly, for whom the CKD-EPI formula has not been extensively validated. Use of the eGFR is not recommended in the following populations:< br/>
Yadira viduals with unstable creatinine concentration s, including patients and those with serious co-morbid conditions.<b r/>
Patie nts with extremes in muscle mass or diet.

The data above are obtained from the National Kidney Disease Education Program (NKDEP) which additionally recommends that when the eGFR is used in patients with extremes of body mass index for purposes of drug dosing, the eGFR should be multiplied by the estimated BMI. CHEM PANEL BUN 21 7 - 22 10 MH The [place] CHEM PANEL Creatinine 1.79 0.50 - 10 MH The Lvl 1.40 [place] CHEM PANEL Alk Phos 95 39 - 136 10 MH The [place] CHEM PANEL Bili Total 0.3 0.2 - 1.3 03/14 MH The [place] CHEM PANEL AST 39 0 - 37 10 MH The [place] CHEM PANEL ALT 59 0 - 65 10 MH The [place] CHEM PANEL Sodium Lvl 139 135 - 145 10 MH The [place] CHEM PANEL Total 7.8 6.4 - 8.4 10 MH The Protein [place] CHEM PANEL Albumin Lvl 2.5 3.5 - 5.0 10 MH The [place] CHEM PANEL Glucose Lvl 120 70 - 99 10 MH The [place] CHEM PANEL Chloride Lvl 106 95 - 109 10/ MH The [place] CHEM PANEL CO2 21 24 - 32 10/18 MH The [place] CHEM PANEL Calcium Lvl 10.1 8.5 - 10.5 10/18 MH The [place] CHEM PANEL Potassium 3.3 3.5 - 5.1 10/18 MH The Lvl [place] CHEM PANEL A/G Ratio 0.5 0.7 - 1.6 10/18 MH The [place] CHEM PANEL Globulin 5.3 2.7 - 4.2 10/18 MH The [place] CHEM PANEL B/C Ratio 12 6 - 25 10 MH The [place] CHEM PANEL AGAP 15.3 10.0 - 03/14 MH The 20.0 [place] HEMATOLOGY MPV 7.4 7.4 - 10.4 10 MH The [place] HEMATOLOGY WBC 7.3 3.7 - 10.4 10 MH The [place] HEMATOLOGY MCV 88.5 80.0 - 03/14 MH The 94.0 [place] HEMATOLOGY RBC 3.00 4.70 - 03/14 MH The 6.10 [place] HEMATOLOGY Hct 26.5 42.0 - 10 MH The 54.0 [place] HEMATOLOGY Hgb 8.8 14.0 - 03/14 MH The 18.0 [place] HEMATOLOGY MCHC 33.1 32.0 - 03/14 MH The 36.0 [place] HEMATOLOGY MCH 29.3 27.0 - 03/14 MH The 31.0 [place] HEMATOLOGY Platelet 241 133 - 450 03/14 MH The [place] HEMATOLOGY RDW 15.5 11.5 - 03/14 MH The 14.5 [place] HEMATOLOGY Basophils # 0.1 0.0 - 0.2 10 MH The [place] HEMATOLOGY Lymphocytes 14.3 20.0 - 03/14 MH The 40.0 [place] HEMATOLOGY Eosinophils 1.9 0.0 - 4.0 10 MH The [place] HEMATOLOGY Segs 77.1 45.0 - 03/14 MH The 75.0 [place] HEMATOLOGY Monocytes 5.3 2.0 - 12.0 03/14 MH The [place] HEMATOLOGY Basophils 1.4 0.0 - 1.0 10 MH The [place] HEMATOLOGY Segs-Bands # 5.6 1.5 - 8.1 10 MH The [place] HEMATOLOGY Lymphocytes 1.0 1.0 - 5.5 10 MH The # [place] HEMATOLOGY Monocytes # 0.4 0.0 - 0.8 03/14 MH The [place] HEMATOLOGY Eosinophils 0.1 0.0 - 0.5 03/14 MH The # [place] ANEMIA UIBC 174 110 - 370 02/15 MH The STUDY /2015 [place] ANEMIA TIBC 196 228 - 428 02/15 MH The STUDY /2015 [place] ANEMIA Iron 22 45 - 160 02/15 The [place] ANEMIA % S[place] Fe 11 12 - 57 02/15 The [place] CHEM PANEL eGFR 57 02/14 Result The Comment: [place] eGFR is calculated using the CKD-EPI formula. In most young, healthy individuals the eGFR will be >90 mL/min/1.73m2 . The eGFR declines with age. An eGFR of 60-89 may be normal in some populations, particularly the elderly, for whom the CKD-EPI formula has not been extensively validated. Use of the eGFR is not recommended in the following populations:< br/>
Yadira viduals with unstable creatinine concentration s, including patients and those with serious co-morbid conditions.<b r/>
Patie nts with extremes in muscle mass or diet.

The data above are obtained from the National Kidney Disease Education Program (NKDEP) which additionally recommends that when the eGFR is used in patients with extremes of body mass index for purposes of drug dosing, the eGFR should be multiplied by the estimated BMI. CHEM PANEL AGAP 14.7 10.0 - 02/14 The .0 [place] CHEM PANEL Calcium Lvl 8.7 8.5 - 10.5 02/14 The [place] CHEM PANEL CO2 24 24 - 32 02/14 The [place] CHEM PANEL Chloride Lvl 99 95 - 109 02/14 MH The [place] CHEM PANEL Potassium 3.7 3.5 - 5.1 02/14 The [place] CHEM PANEL BUN 16 7 - 22 02/14 The [place] CHEM PANEL Glucose Lvl 128 70 - 99 02/14 The [place] CHEM PANEL Sodium Lvl 134 135 - 145 02/14 The [place] CHEM PANEL Creatinine 1.42 0.50 - 02/14 MH The Lvl 1.40 [place] CHEM PANEL eGFR 51 02/13 Result Comment: [place] eGFR is calculated using the CKD-EPI formula. In most young, healthy individuals the eGFR will be >90 mL/min/1.73m2 . The eGFR declines with age. An eGFR of 60-89 may be normal in some populations, particularly the elderly, for whom the CKD-EPI formula has not been extensively validated. Use of the eGFR is not recommended in the following populations:< br/>
Yadira viduals with unstable creatinine concentration s, including patients and those with serious co-morbid conditions.<b r/>
Patie nts with extremes in muscle mass or diet.

The data above are obtained from the National Kidney Disease Education Program (NKDEP) which additionally recommends that when the eGFR is used in patients with extremes of body mass index for purposes of drug dosing, the eGFR should be multiplied by the estimated BMI. CHEM PANEL Bili Total 0.8 0.2 - 1.3 02/13 Result The Comment: [place] reviewed all results 02/14/2016 06:35 [facility] CHEM PANEL ALT 25 0 - 65 02/13 The [place] CHEM PANEL AST 15 0 - 37 02/13 The [place] CHEM PANEL Alk Phos 62 39 - 136 02/13 The [place] CHEM PANEL Globulin 4.8 2.7 - 4.2 02/13 The [place] CHEM PANEL A/G Ratio 0.5 0.7 - 1.6 02/13 The [place] CHEM PANEL Calcium Lvl 9.0 8.5 - 10.5 02/13 The [place] CHEM PANEL Glucose Lvl 109 70 - 99 02/13 The [place] CHEM PANEL CO2 24 24 - 32 02/13 The [place] CHEM PANEL Chloride Lvl 101 95 - 109 02/13 The [place] CHEM PANEL BUN 17 7 - 22 02/13 The [place] CHEM PANEL Potassium 4.1 3.5 - 5.1 02/13 The Lvl [place] CHEM PANEL AGAP 14.1 10.0 - 02/13 The 20.0 [place] CHEM PANEL Albumin Lvl 2.3 3.5 - 5.0 02/13 The [place] CHEM PANEL Total 7.1 6.4 - 8.4 02/13 The Protein [place] CHEM PANEL Creatinine 1.55 0.50 - 02/13 The Lvl 1.40 [place] CHEM PANEL Sodium Lvl 135 135 - 145 02/13 The [place] CHEM PANEL B/C Ratio 11 6 - 25 02/13 The /2015 [place] HEMATOLOGY MPV 7.7 7.4 - 10.4 09 The /2015 [place] HEMATOLOGY Hct 25.4 42.0 - 02/13 MH The 54.0 /2015 [place] HEMATOLOGY MCH 32.7 27.0 - 02/13 MH The 31.0 [place] HEMATOLOGY MCV 96.6 80.0 - 02/13 MH The 94.0 [place] HEMATOLOGY Platelet 296 133 - 450 02/13 The [place] HEMATOLOGY RDW 14.7 11.5 - 02/13 The 14.5 [place] HEMATOLOGY MCHC 33.8 32.0 - 02/13 MH The 36.0 [place] HEMATOLOGY WBC 8.4 3.7 - 10.4 02/13 The [place] HEMATOLOGY Hgb 8.6 14.0 - 02/13 MH The 18.0 [place] HEMATOLOGY RBC 2.63 4.70 - 02/13 MH The 6.10 [place] HEMATOLOGY Lymphocytes 1.5 1.0 - 5.5 02/13 MH The # [place] HEMATOLOGY Eosinophils 0.2 0.0 - 0.5 02/13 MH The # [place] HEMATOLOGY Monocytes # 0.8 0.0 - 0.8 02/13 MH The [place] HEMATOLOGY Basophils # 0.1 0.0 - 0.2 02/13 MH The [place] HEMATOLOGY Monocytes 9.9 2.0 - 12.0 02/13 MH The [place] HEMATOLOGY Lymphocytes 17.2 20.0 - 02/13 MH The 40.0 [place] HEMATOLOGY Segs 69.8 45.0 - 02/13 MH The 75.0 [place] HEMATOLOGY Eosinophils 2.2 0.0 - 4.0 02/13 MH The [place] HEMATOLOGY Segs-Bands # 5.9 1.5 - 8.1 02/13 MH The [place] HEMATOLOGY Basophils 0.9 0.0 - 1.0 02/13 MH The [place] TOXICOLOGY Vanco Tr 14.8 02/13 MH The [place] TOXICOLOGY Vanco Tr TND TBD 02/13 MH The [place] CHEM PANEL Total 6.3 6.4 - 8.4 02/12 MH The Protein [place] CHEM PANEL A/G Ratio 0.7 0.7 - 1.6 09/18 MH The [place] CHEM PANEL B/C Ratio 12 6 - 25 09/18 MH The [place] CHEM PANEL Globulin 3.8 2.7 - 4.2 09/18 MH The [place] CHEM PANEL AST 12 0 - 37 /18 MH The [place] CHEM PANEL Alk Phos 61 39 - 136 /18 MH The [place] CHEM PANEL Albumin Lvl 2.5 3.5 - 5.0 09/18 MH The [place] CHEM PANEL ALT 26 0 - 65 09/18 MH The [place] CHEM PANEL Bili Total 0.4 0.2 - 1.3 09/18 MH The [place] CHEM PANEL AGAP 13.5 10.0 - 0918 MH The 20.0 [place] CHEM PANEL eGFR 57 /18 Result MH The Comment: [place] eGFR is calculated using the CKD-EPI formula. In most young, healthy individuals the eGFR will be >90 mL/min/1.73m2 . The eGFR declines with age. An eGFR of 60-89 may be normal in some populations, particularly the elderly, for whom the CKD-EPI formula has not been extensively validated. Use of the eGFR is not recommended in the following populations:< br/>
Yadira viduals with unstable creatinine concentration s, including patients and those with serious co-morbid conditions.<b r/>
Patie nts with extremes in muscle mass or diet.

The data above are obtained from the National Kidney Disease Education Program (NKDEP) which additionally recommends that when the eGFR is used in patients with extremes of body mass index for purposes of drug dosing, the eGFR should be multiplied by the estimated BMI. CHEM PANEL CO2 27 24 - 32 09/18 MH The [place] CHEM PANEL Calcium Lvl 8.7 8.5 - 10.5 /18 MH The [place] CHEM PANEL Chloride Lvl 100 95 - 109 /18 MH The [place] CHEM PANEL Potassium 4.5 3.5 - 5.1 18 MH The Lvl /2015 [place] CHEM PANEL Creatinine 1.42 0.50 - 0918 MH The Lvl 1.40 /2015 [place] CHEM PANEL Sodium Lvl 136 135 - 145 09/18 MH The [place] CHEM PANEL Glucose Lvl 105 70 - 99 02/12 The [place] CHEM PANEL BUN 17 7 - 22 02/12 The [place] TOXICOLOGY Vanco Tr TND TBD 02/12 The [place] TOXICOLOGY Vanco Tr 9.3 02/12 The [place] CHEM PANEL Phosphorus 4.9 2.5 - 4.5 02/11 The [place] CHEM PANEL Magnesium 1.8 1.8 - 2.4 02/11 The Lvl /2015 [place] HEMATOLOGY Segs 70.5 45.0 - 02/11 The 75.0 [place] HEMATOLOGY Lymphocytes 18.0 20.0 - 02/11 The 40.0 [place] HEMATOLOGY Monocytes 9.7 2.0 - 12.0 02/11 The [place] HEMATOLOGY Segs-Bands # 6.4 1.5 - 8.1 02/11 The [place] HEMATOLOGY Lymphocytes 1.6 1.0 - 5.5 02/11 The # [place] HEMATOLOGY Basophils 0.5 0.0 - 1.0 02/11 The [place] HEMATOLOGY Eosinophils 1.3 0.0 - 4.0 02/11 The [place] HEMATOLOGY Monocytes # 0.9 0.0 - 0.8 02/11 The [place] HEMATOLOGY Eosinophils 0.1 0.0 - 0.5 02/11 The # [place] HEMATOLOGY Platelet 307 133 - 450 02/11 The [place] HEMATOLOGY MPV 6.9 7.4 - 10.4 02/11 The [place] HEMATOLOGY MCHC 33.9 32.0 - 02/11 The 36.0 [place] HEMATOLOGY RDW 15.1 11.5 - 02/11 The 14.5 /2015 [place] HEMATOLOGY RBC 2.69 4.70 - 02/11 The 6.10 [place] HEMATOLOGY MCV 96.5 80.0 - 02/11 The 94.0 [place] HEMATOLOGY WBC 9.1 3.7 - 10.4 02/11 The [place] HEMATOLOGY Hgb 8.8 14.0 - 02/11 The 18.0 [place] HEMATOLOGY Hct 26.0 42.0 - 02/11 The 54.0 /2015 [place] HEMATOLOGY MCH 32.7 27.0 - 02/11 The 31.0 [place] HEMATOLOGY Segs-Bands # 7.7 1.5 - 8.1 02/11 The [place] HEMATOLOGY Basophils 1.5 0.0 - 1.0 09 The [place] HEMATOLOGY Basophils # 0.2 0.0 - 0.2 02/11 The [place] HEMAT[facility]Y Eosinophils 0.2 0.0 - 0.5 02/11 The # [place] HEMAT[facility] Monocytes # 1.2 0.0 - 0.8 02/11 The [place] HEMATOLOGY Segs 69.4 45.0 - 02/11 The 75.0 [place] HEMATOLOGY Monocytes 10.5 2.0 - 12.0 02/11 The [place] HEMATOLOGY Eosinophils 1.6 0.0 - 4.0 02/11 The [place] HEMATOLOGY Lymphocytes 1.9 1.0 - 5.5 02/11 The # [place] HEMATOLOGY Lymphocytes 17.0 20.0 - 02/11 The 40.0 [place] HEMATOLOGY Hct 28.9 42.0 - 02/11 The 54.0 [place] HEMATOLOGY MCHC 33.6 32.0 - 02/11 The 36.0 [place] HEMATOLOGY RDW 14.6 11.5 - 02/11 The 14.5 [place] HEMATOLOGY MCV 96.6 80.0 - 02/11 The 94.0 /2015 [place] HEMATOLOGY MCH 32.4 27.0 - 02/11 The 31.0 [place] HEMATOLOGY Hgb 9.7 14.0 - 02/11 The 18.0 [place] HEMATOLOGY WBC 11.1 3.7 - 10.4 02/11 The /2015 [place] HEMATOLOGY RBC 2.99 4.70 - 02/11 The 6.10 [place] HEMAT[facility] Platelet 360 133 - 450 02/11 The [place] HEMATOLOGY MPV 7.4 7.4 - 10.4 02/11 The [place] TOXICOLOGY Vanco Tr 10.9 02/10 The [place] TOXICOLOGY Vanco Tr TND TBD 02/10 The [place] HEMATOLOGY Basophils # 0.1 0.0 - 0.2 02/09 [place] TOXICOLOGY Vanco Lvl 14.1 02/09 The [place] HEMATOLOGY Sed Rate >100 0 - 15 02/08 The [place] BLOOD BANK Antibody Negative 02/07 The RESULTS Scrn (02/08/16 5:38 AM) [place] BLO[facility] ABO/Rh B POS 02/07 The RESULTS [place] CHEM PANEL Procalcitoni 0.11 0.00 - 02/07 The n Lvl 0.10 [place] URINE AND UA Sq Epi None Seen 02/04 The STOOL /2015 [place] URINE AND UA <=1.0 0.1 - 1.0 02/04 The STOOL Urobilinogen mg/dL [place] URINE AND UA Leuk Est Negative Negative 02/04 The STOOL (02/05/16 12:36 AM) /2015 [place] URINE AND UA Bacteria Occasional None Seen 02/04 The STOOL /HPF /HPF [place] URINE AND UA WBC 1 0 - 5 02/04 The STOOL /2015 [place] URINE AND UA Blood Negative Negative 02/04 The STOOL (02/05/16 12:36 AM) /2015 [place] URINE AND UA Bili Negative Negative 02/04 The STOOL *NA* /2015 [place] (02/05/16 12:36 AM) URINE AND UA Nitrite Negative Negative 02/04 The STOOL (02/05/16 12:36 AM) [place] URINE AND UA Glucose Negative Negative 02/04 The STOOL mg/dL mg/dL [place] URINE AND UA Protein Negative Negative 02/04 The STOOL mg/dL mg/dL [place] URINE AND UA Turbidity Clear Clear 02/04 The STOOL (02/05/16 12:36 AM) /2015 [place] URINE AND UA pH 6.0 5.0 - 8.0 02/04 The STOOL /2015 [place] URINE AND UA Color Light Yellow Yellow 02/04 The STOOL *NA* /2015 [place] (02/05/16 12:36 AM) URINE AND UA Ketones Negative Negative 02/04 The STOOL mg/dL mg/dL [place] URINE AND UA Spec Grav 1.006 <=1.030 02/04 The STOOL [place] URINE AND UA Sq Epi None Seen 09/06 MH The STOOL /2015 [place] URINE AND UA <=1.0 0.1 - 1.0 01/31 MH The STOOL Urobilinogen mg/dL [place] URINE AND UA Blood Negative Negative 01/31 The STOOL (02/01/16 4:31 PM) /2015 [place] URINE AND UA Nitrite Negative Negative 01/31 The STOOL (02/01/16 4:31 PM) /2015 [place] URINE AND UA Leuk Est Negative Negative 01/31 The STOOL (02/01/16 4:31 PM) /2015 [place] URINE AND UA WBC 1 0 - 5 01/31 MH The STOOL /2015 [place] URINE AND UA Hyal Cast 3 0 - 2 01/31 MH The STOOL /2015 [place] URINE AND UA pH 5.5 5.0 - 8.0 01/31 The STOOL /2015 [place] URINE AND UA Glucose Negative Negative 01/31 The STOOL mg/dL mg/dL [place] URINE AND UA Ketones Negative Negative 01/31 The STOOL mg/dL mg/dL [place] URINE AND UA Bili Negative Negative 01/31 The STOOL *NA* /2015 [place] (02/01/16 4:31 PM) URINE AND UA Protein Negative Negative 01/31 The STOOL mg/dL mg/dL [place] URINE AND UA Color Yellow Yellow 01/31 The STOOL *NA* /2015 [place] (02/01/16 4:31 PM) URINE AND UA Turbidity Clear Clear 01/31 The STOOL (02/01/16 4:31 PM) [place] URINE AND UA Spec Grav 1.007 <=1.030 01/31 The STOOL [place] URINE CHEM U Chloride 41 01/31 The [place] URINE CHEM U Creatinine 70.40 01/31 The [place] URINE CHEM U Sodium 38 01/31 The [place] CARDIAC Troponin-I <0.02 0.00 - 01/30 The ENZYMES 0.40 [place] CHEM PANEL Procalcitoni 0.13 0.00 - 01/30 The n Lvl 0.10 [place] CHEM PANEL Lactic Acid 1.7 0.5 - 2.2 09 The Lvl [place] CHEM PANEL Bili Total 0.4 0.2 - 1.3 09/05 MH The [place] CHEM PANEL Total 7.7 6.4 - 8.4 09 The Protein [place] CHEM PANEL AST 19 0 - 37 09 MH The [place] CHEM PANEL ALT 23 0 - 65 09 The [place] CHEM PANEL Alk Phos 58 39 - 136 09 MH The [place] CHEM PANEL Albumin Lvl 2.8 3.5 - 5.0 09/ The [place] CHEM PANEL A/G Ratio 0.6 0.7 - 1.6 09/05 The [place] CHEM PANEL Globulin 4.9 2.7 - 4.2 09 The [place] CHEM PANEL B/C Ratio 15 6 - 25 09 The [place] HEMATOLOGY PTT 42.4 22.9 - 01/30 The 35.8 [place] HEMATOLOGY PT 14.6 12.0 - 01/30 MH The 14.7 [place] HEMATOLOGY INR 1.11 0.85 - 01/30 The 1.17 [place] LIPIDS VLDL 77 02/16 The [place] LIPIDS HDL 29 >=61 mg/dL 02/16 The [place] LIPIDS Chol 222 <=199 02/16 MH The mg/dL [place] LIPIDS CHD Risk 7.66 4.00 - 02/16 MH The 7.30 [place] LIPIDS Trig 384 <=149 02/16 MH The mg/dL [place] LIPIDS LDL 116 <=99 mg/dL 02/16 The (Calculated) [place] CARDIAC CK MB Index 0.8 0.0 - 2.5 02/16 MH The ENZYMES [place] CARDIAC CK MB 0.6 0.5 - 3.6 02/16 MH The ENZYMES [place] CARDIAC Troponin-I <0.02 0.00 - 02/16 MH The ENZYMES 0.40 [place] CARDIAC Total CK 76 12 - 191 02/16 MH The ENZYMES [place] CARDIAC Troponin-I <0.02 0.00 - 02/16 MH The ENZYMES 0.40 [place] CARDIAC Total CK 89 12 - 191 02/16 MH The ENZYMES [place] CARDIAC CK MB Index 1.0 0.0 - 2.5 02/16 MH The ENZYMES [place] CARDIAC CK MB 0.9 0.5 - 3.6 02/16 MH The ENZYMES /2014 [place] THYROID TSH 2.000 0.360 - 02/16 MH The PANEL 3.740 /2014 [place] CARDIAC CK MB Index 0.8 0.0 - 2.5 02/15 MH The ENZYMES [place] CARDIAC Troponin-I <0.02 0.00 - 02/15 MH The ENZYMES 0.40 /2014 [place] CARDIAC Total CK 111 12 - 191 02/15 MH The ENZYMES [place] CARDIAC CK MB 0.9 0.5 - 3.6 02/15 MH The ENZYMES /2014 [place] CHEM PANEL eGFR 70 02/15 [facility] Comment: [place] eGFR is calculated using the CKD-EPI formula. In most young, healthy individuals the eGFR will be >90 mL/min/1.73m2 . The eGFR declines with age. An eGFR of 60-89 may be normal in some populations, particularly the elderly, for whom the CKD-EPI formula has not been extensively validated. Use of the eGFR is not recommended in the following populations:< br/>
Yadira viduals with unstable creatinine concentration s, including patients and those with serious co-morbid conditions.<b r/>
Patie nts with extremes in muscle mass or diet.

The data above are obtained from the National Kidney Disease Education Program (NKDEP) which additionally recommends that when the eGFR is used in patients with extremes of body mass index for purposes of drug dosing, the eGFR should be multiplied by the estimated BMI. CHEM PANEL Alk Phos 87 39 - 136 02/15 MH The [place] CHEM PANEL AST 23 0 - 37 02/15 The [place] CHEM PANEL ALT 27 0 - 65 02/15 MH The [place] CHEM PANEL Albumin Lvl 3.4 3.5 - 5.0 02/15 The [place] CHEM PANEL Total 7.7 6.4 - 8.4 02/15 The Protein [place] CHEM PANEL A/G Ratio 0.8 0.7 - 1.6 02/15 The [place] CHEM PANEL Globulin 4.3 2.0 - 4.0 02/15 The [place] CHEM PANEL B/C Ratio 6 6 - 25 02/15 The [place] CHEM PANEL AGAP 11.8 10.0 - 02/15 The 20.0 [place] CHEM PANEL Bili Total 0.4 0.2 - 1.3 02/15 The [place] CHEM PANEL Calcium Lvl 9.2 8.5 - 10.5 02/15 The [place] CHEM PANEL CO2 25 24 - 32 02/15 The [place] CHEM PANEL Glucose Lvl 88 70 - 99 02/15 The [place] CHEM PANEL Chloride Lvl 106 95 - 109 02/15 The [place] CHEM PANEL Potassium 4.8 3.5 - 5.1 02/15 The [place] CHEM PANEL Sodium Lvl 138 135 - 145 02/15 The [place] CHEM PANEL Creatinine 1.2 0.5 - 1.4 02/15 The [place] CHEM PANEL BUN 7 7 - 22 02/15 The [place] CHEM PANEL Magnesium 2.0 1.8 - 2.4 02/15 The [place] HEMATOLOGY Eosinophils 0.4 0.0 - 0.5 02/15 The # [place] HEMATOLOGY Basophils # 0.0 0.0 - 0.2 02/15 The [place] HEMATOLOGY Segs-Bands # 4.6 1.5 - 8.1 02/15 The [place] HEMATOLOGY Monocytes # 0.8 0.0 - 0.8 02/15 The [place] HEMATOLOGY Monocytes 10.3 2.0 - 12.0 02/15 The [place] HEMATOLOGY Eosinophils 5.0 0.0 - 4.0 02/15 The [place] HEMATOLOGY Basophils 0.4 0.0 - 1.0 02/15 The [place] HEMATOLOGY Lymphocytes 25.7 20.0 - 02/15 The 40.0 [place] HEMATOLOGY Lymphocytes 2.0 1.0 - 5.5 02/15 MH The # [place] HEMATOLOGY Segs 58.6 45.0 - 02/15 MH The 75.0 [place] HEMATOLOGY INR 1.00 0.85 - 02/15 MH The 1.17 [place] HEMATOLOGY PT 13.5 12.0 - 02/15 The 14.7 [place] HEMATOLOGY PTT 33.7 22.9 - 02/15 The 35.8 [place] HEMATOLOGY Platelet 170 133 - 450 02/15 The [place] HEMATOLOGY WBC 7.8 3.7 - 10.4 02/15 The [place] HEMATOLOGY MCH 33.3 27.0 - 02/15 The 31.0 [place] HEMATOLOGY RBC 4.62 4.70 - 02/15 The 6.10 [place] HEMATOLOGY MCV 97.4 80.0 - 02/15 The 94.0 [place] HEMATOLOGY Hgb 15.4 14.0 - 02/15 The 18.0 [place] HEMATOLOGY Hct 45.0 42.0 - 02/15 The 54.0 [place] HEMATOLOGY MCHC 34.2 32.0 - 02/15 The 36.0 [place] HEMATOLOGY MPV 7.0 7.4 - 10.4 02/15 The [place] HEMATOLOGY RDW 16.0 11.5 - 02/15 The 14.5 [place] DRUG U Cocaine Negative Negative 01/23 The SCREEN Scr *NA* [place] (01/23/15 3:10 PM) DRUG U Opiate Scr Negative Negative 01/23 The SCREEN *NA* [place] (01/23/15 3:10 PM) DRUG U Cannab Scr Negative Negative 01/23 The SCREEN [place] (01/23/15 3:10 PM) DRUG U Phencyc Negative Negative 01/23 The SCREEN Scr *NA* [place] (01/23/15 3:10 PM) DRUG UDS Note See Note 01/23 The SCREEN (01/23/15 3:10 PM) /2014 [place] DRUG U Shoshana Scr Negative Negative 01/23 The SCREEN *NA* [place] (01/23/15 3:10 PM) DRUG U Benzodia Positive Negative 01/23 The SCREEN Scr *ABN* [place] (01/23/15 3:10 PM) DRUG U Amph Scr Negative Negative 01/23 The SCREEN *NA* [place] (01/23/15 3:10 PM) URINE AND UA <=1.0 0.1 - 1.0 01/23 The STOOL Urobilinogen mg/dL /2014 [place] URINE AND UA Glucose Negative Negative 01/23 MH The STOOL mg/dL mg/dL [place] URINE AND UA Sq Epi Few /LPF Few /LPF 01/23 The STOOL /2014 [place] URINE AND UA Leuk Est Negative Negative 01/23 The STOOL (01/23/15 3:10 PM) /2014lands URINE AND UA Nitrite Negative Negative 01/23 MH The STOOL (01/23/15 3:10 PM) /2014 [place] URINE AND UA Bacteria Occasional None Seen 01/23 The STOOL /HPF /HPF [place] URINE AND UA RBC 3 0 - 2 01/23 MH The STOOL /2014 [place] URINE AND UA WBC <1 0 - 5 01/23 The STOOL /2014 [place] URINE AND UA Hyal Cast 5 0 - 2 01/23 The STOOL /2014[place] URINE AND UA Amorph Occasional None Seen 01/23 The STOOL Brisa /HPF /HPF [facility] URINE AND UA Mucus Few /LPF None Seen 01/23 The STOOL /LPF /2014 [place] URINE AND UA Color Yellow Yellow 01/23 The STOOL *NA* /2014 [place] (01/23/15 3:10 PM) URINE AND UA Protein 200 mg/dL Negative 01/23 The STOOL mg/dL [place] URINE AND UA pH 6.0 5.0 - 8.0 01/23 The STOOL [place] URINE AND UA Spec Grav 1.017 <=1.030 01/23 The STOOL [place] URINE AND UA Turbidity Slight Clear 01/23 The STOOL *ABN* /2014 [place] (01/23/15 3:10 PM) URINE AND UA Blood Moderate Negative 01/23 The STOOL *ABN* /2014 [place] (01/23/15 3:10 PM) URINE AND UA Bili Negative Negative 01/23 The STOOL *NA* /2014 [place] (01/23/15 3:10 PM) URINE AND UA Ketones Trace Negative 01/23 The STOOL mg/dL mg/dL [place] URINE AND UA Sperm Occasional None Seen 01/23 The STOOL /HPF /HPF [place] CARDIAC CK MB Index 0.7 0.0 - 2.5 01/23 The ENZYMES /2014 [place] CARDIAC Troponin-I <0.02 0.00 - 01/23 The ENZYMES 0.40 [place] CARDIAC Total CK 170 12 - 191 08/29 MH The ENZYMES /2014 [place] CARDIAC CK MB 1.2 0.5 - 3.6 01/23 The ENZYMES [place] CHEM PANEL eGFR 54 01/23 [facility] Comment: [place] eGFR is calculated using the CKD-EPI formula. In most young, healthy individuals the eGFR will be >90 mL/min/1.73m2 . The eGFR declines with age. An eGFR of 60-89 may be normal in some populations, particularly the elderly, for whom the CKD-EPI formula has not been extensively validated. Use of the eGFR is not recommended in the following populations:< br/>
Yadira viduals with unstable creatinine concentration s, including patients and those with serious co-morbid conditions.<b r/>
Patie nts with extremes in muscle mass or diet.

The data above are obtained from the National Kidney Disease Education Program (NKDEP) which additionally recommends that when the eGFR is used in patients with extremes of body mass index for purposes of drug dosing, the eGFR should be multiplied by the estimated BMI. CHEM PANEL A/G Ratio 1.0 0.7 - 1.6 01/23 [place] CHEM PANEL AST 23 0 - 37 01/23 The [place] CHEM PANEL Albumin Lvl 4.3 3.5 - 5.0 01/23 The [place] CHEM PANEL ALT 39 0 - 65 01/23 MH The [place] CHEM PANEL Total 8.8 6.4 - 8.4 01/23 MH The Protein [place] CHEM PANEL Calcium Lvl 9.3 8.5 - 10.5 01/23 The [place] CHEM PANEL AGAP 20.5 10.0 - 01/23 MH The 20.0 [place] CHEM PANEL Globulin 4.5 2.0 - 4.0 01/23 MH The [place] CHEM PANEL B/C Ratio 10 6 - 25 01/23 MH [place] CHEM PANEL Bili Total 0.5 0.2 - 1.3 01/23 The [place] CHEM PANEL Alk Phos 88 39 - 136 01/23 The [place] CHEM PANEL Potassium 4.5 3.5 - 5.1 01/23 MH The Lvl [place] CHEM PANEL Sodium Lvl 139 135 - 145 01/23 The [place] CHEM PANEL CO2 17 24 - 32 01/23 The [place] CHEM PANEL Chloride Lvl 106 95 - 109 01/23 The [place] CHEM PANEL Glucose Lvl 114 70 - 99 01/23 The [place] CHEM PANEL Creatinine 1.5 0.5 - 1.4 01/23 The Lvl [place] CHEM PANEL BUN 15 7 - 22 01/23 The [place] HEMATOLOGY Segs 89.7 45.0 - 01/23 The 75.0 [place] HEMATOLOGY Segs-Bands # 11.6 1.5 - 8.1 01/23 The [place] HEMATOLOGY Lymphocytes 0.8 1.0 - 5.5 01/23 The [place] HEMATOLOGY Lymphocytes 6.5 20.0 - 01/23 The 40.0 [place] HEMATOLOGY Monocytes 3.2 2.0 - 12.0 01/23 The [place] HEMATOLOGY Monocytes # 0.4 0.0 - 0.8 01/23 The [place] HEMATOLOGY Eosinophils 0.0 0.0 - 0.5 01/23 The [place] HEMATOLOGY Basophils # 0.1 0.0 - 0.2 01/23 The [place] HEMATOLOGY Eosinophils 0.2 0.0 - 4.0 01/23 The [place] HEMATOLOGY Basophils 0.4 0.0 - 1.0 01/23 The [place] HEMATOLOGY PT 14.2 12.0 - 01/23 The 14. [place] HEMATOLOGY INR 1.07 0.85 - 01/23 The 1.17 [place] HEMATOLOGY PTT 31.2 22.9 - 01/23 The 35.8 [place] HEMATOLOGY MPV 8.3 7.4 - 10.4 01/23 The [place] HEMATOLOGY MCHC 32.8 32.0 - 01/23 The 36.0 [place] HEMATOLOGY RDW 17.0 11.5 - 01/23 The 14. [place] HEMATOLOGY Platelet 202 133 - 450 01/23 The [place] HEMATOLOGY Hct 51.7 42.0 - 01/23 The 54.0 [place] HEMATOLOGY MCV 97.9 80.0 - 01/23 The 94.0 [place] HEMATOLOGY MCH 32.1 27.0 - 01/23 The 31.0 [place] HEMATOLOGY Hgb 17.0 14.0 - 01/23 The 18.0 [place] HEMATOLOGY WBC 12.9 3.7 - 10.4 01/23 [place] HEMATOLOGY RBC 5.28 4.70 - 01/23 The 6.10 [place] TOXICOLOGY Etoh (%) <0.003 01/23 [place] TOXICOLOGY Ethanol Lvl <3 01/23 [place] CHEM PANEL eGFR 71 11/20 <sup>1</sup>R [facility] Comment: The eGFR is calculated using the CKD-EPI formula. In most young, healthy individuals the eGFR will be >90 mL/min/1.73m2 . The eGFR declines with age. An eGFR of 60-89 may be normal in some populations, particularly the elderly, for whom the CKD-EPI formula has not been extensively validated. Use of the eGFR is not recommended in the following populations:& lt;br/>
I ndividuals with unstable creatinine concentration s, including patients and those with serious co-morbid conditions.<b r/>
Patie nts with extremes in muscle mass or diet.

The data above are obtained from the National Kidney Disease Education Program (NKDEP) which additionally recommends that when the eGFR is used in patients with extremes of body mass index for purposes of drug dosing, the eGFR should be multiplied by the estimated BMI. CHEM PANEL Bili Total 0.3 0.2 - 1.3 11/20 The [place] CHEM PANEL AST 18 0 - 37 11/20 [place] CHEM PANEL Alk Phos 88 39 - 136 11/20 The [place] CHEM PANEL ALT 36 0 - 65 11/20 The [place] CHEM PANEL Albumin Lvl 4.0 3.5 - 5.0 11/20 The [place] CHEM PANEL Total 8.8 6.4 - 8.4 11/20 The Protein [place] CHEM PANEL CO2 22 24 - 32 11/20 [place] CHEM PANEL Calcium Lvl 9.5 8.5 - 10.5 11/20 [place] CHEM PANEL Chloride Lvl 103 95 - 109 11/20 The [place] CHEM PANEL Sodium Lvl 135 135 - 145 11/20 The [place] CHEM PANEL Potassium 4.2 3.5 - 5.1 11/20 The [place] CHEM PANEL Creatinine 1.2 0.5 - 1.4 11/20 The [place] CHEM PANEL Glucose Lvl 110 70 - 99 11/20 <sup>4</sup>I The nterpretive [place] Data: Adult reference range values reflect the clinical guidelines
of the [place] [employer]. CHEM PANEL BUN 7 7 - 22 11/20 The [place] CHEM PANEL Globulin 4.8 2.0 - 4.0 11/20 The [place] CHEM PANEL A/G Ratio 0.8 0.7 - 1.6 11/20 The [place] CHEM PANEL B/C Ratio 6 6 - 25 11/20 The [place] CHEM PANEL AGAP 14.2 10.0 - 11/20 The 20.0 [place] HEMATOLOGY Eosinophils 3.2 0.0 - 4.0 11/20 The [place] HEMATOLOGY Lymphocytes 16.7 20.0 - 11/20 The 40.0 [place] HEMATOLOGY Monocytes 6.2 2.0 - 12.0 11/20 The [place] HEMATOLOGY Segs 73.3 45.0 - 11/20 The 75.0 [place] HEMATOLOGY Basophils 0.6 0.0 - 1.0 11/20 The [place] HEMATOLOGY Basophils # 0.1 0.0 - 0.2 11/20 The [place] HEMATOLOGY Eosinophils 0.3 0.0 - 0.5 11/20 The # [place] HEMATOLOGY Monocytes # 0.6 0.0 - 0.8 11/20 The [place] HEMATOLOGY Lymphocytes 1.6 1.0 - 5.5 11/20 The [place] HEMATOLOGY Segs-Bands # 6.8 1.5 - 8.1 11/20 The [place] HEMATOLOGY Platelet 170 133 - 450 11/20 The [place] HEMATOLOGY MPV 7.6 7.4 - 10.4 11/20 [place] HEMATOLOGY MCHC 33.8 32.0 - 11/20 The 36.0 [place] HEMATOLOGY RDW 14.2 11.5 - 11/20 The 14. [place] HEMATOLOGY MCH 33.1 27.0 - 11/20 The 31. [place] HEMATOLOGY MCV 97.9 80.0 - 11/20 The 94.0 [place] HEMATOLOGY Hgb 14.2 14.0 - 11/20 The 18.0 [place] HEMATOLOGY Hct 42.1 42.0 - 11/20 The 54.0 [place] HEMATOLOGY WBC 9.3 3.7 - 10.4 11/20 [place] HEMATOLOGY RBC 4.30 4.70 - 11/20 The 6. [place] TOXICOLOGY Vanco Tr TND unknown 11/20 [place] TOXICOLOGY Vanco Tr 7.7 11/20 <sup>5</sup>I nterpretive [place] Data: Therapeutic Range:
Trough: 10 - 20 ug/mL
Peak: 20 - 40 ug/mL
Potential Toxicity: >80 ug/mL CHEM PANEL eGFR 47 11/17 <sup>2</sup>R [facility] Comment: The eGFR is calculated using the CKD-EPI formula. In most young, healthy individuals the eGFR will be >90 mL/min/1.73m2 . The eGFR declines with age. An eGFR of 60-89 may be normal in some populations, particularly the elderly, for whom the CKD-EPI formula has not been extensively validated. Use of the eGFR is not recommended in the following populations:& lt;br/>
I ndividuals with unstable creatinine concentration s, including patients and those with serious co-morbid conditions.<b r/>
Patie nts with extremes in muscle mass or diet.

The data above are obtained from the National Kidney Disease Education Program (NKDEP) which additionally recommends that when the eGFR is used in patients with extremes of body mass index for purposes of drug dosing, the eGFR should be multiplied by the estimated BMI. CHEM PANEL Creatinine 1.7 0.5 - 1.4 11/17 The [place] CHEM PANEL BUN 14 7 - 22 11/17 The [place] ELECTROLYT Potassium 4.3 3.5 - 5.1 11/17 The ES Lvl [place] HEMATOLOGY Hct 36.8 42.0 - 11/17 The 54.0 [place] HEMATOLOGY MCV 97.6 80.0 - 11/17 The 94.0 [place] HEMATOLOGY MCH 33.2 27.0 - 11/17 The 31.0 [place] HEMATOLOGY Hgb 12.5 14.0 - 11/17 The 18.0 [place] HEMATOLOGY WBC 7.7 3.7 - 10.4 11/17 The [place] HEMATOLOGY RBC 3.77 4.70 - 11/17 The 6.10 [place] HEMATOLOGY RDW 14.0 11.5 - 11/17 The 14.5 [place] HEMATOLOGY Platelet 155 133 - 450 11/17 The [place] HEMATOLOGY MPV 7.7 7.4 - 10.4 11/17 The [place] HEMATOLOGY MCHC 34.0 32.0 - 11/17 The 36.0 [place] HEMATOLOGY Segs-Bands # 5.7 1.5 - 8.1 11/17 The [place] HEMATOLOGY Eosinophils 4.3 0.0 - 4.0 11/17 The [place] HEMATOLOGY Basophils # 0.0 0.0 - 0.2 11/17 The [place] HEMATOLOGY Basophils 0.3 0.0 - 1.0 11/17 The [place] HEMATOLOGY Monocytes 5.1 2.0 - 12.0 11/17 The [place] HEMATOLOGY Lymphocytes 16.3 20.0 - 11/17 The 40.0 [place] HEMATOLOGY Lymphocytes 1.2 1.0 - 5.5 11/17 The # [place] HEMATOLOGY Eosinophils 0.3 0.0 - 0.5 11/17 The # [place] HEMATOLOGY Monocytes # 0.4 0.0 - 0.8 11/17 The [place] HEMATOLOGY Segs 74.0 45.0 - 11/17 The 75.0 [place] TOXICOLOGY Vanco Tr TND unknown 11/17 The [place] TOXICOLOGY Vanco Tr 24.4 11/17 <sup>6</sup>I nterpretive [place] Data: Therapeutic Range:
Trough: 10 - 20 ug/mL
Peak: 20 - 40 ug/mL
Potential Toxicity: >80 ug/mL CHEM PANEL eGFR 54 11/13 <sup>3</sup>R [facility] Comment: The eGFR is calculated using the CKD-EPI formula. In most young, healthy individuals the eGFR will be >90 mL/min/1.73m2 . The eGFR declines with age. An eGFR of 60-89 may be normal in some populations, particularly the elderly, for whom the CKD-EPI formula has not been extensively validated. Use of the eGFR is not recommended in the following populations:& lt;br/>
I ndividuals with unstable creatinine concentration s, including patients and those with serious co-morbid conditions.<b r/>
Patie nts with extremes in muscle mass or diet.

The data above are obtained from the National Kid[employer] Disease Education Program (NKDEP) which additionally recommends that when the eGFR is used in patients with extremes of body mass index for purposes of drug dosing, the eGFR should be multiplied by the estimated BMI. CHEM PANEL Creatinine 1.5 0.5 - 1.4 11/13 [facility] [place] CHEM PANEL BUN 11 7 - 22 11/13 [place] ELECTROLYT Potassium 4.5 3.5 - 5.1 11/13 [facility] [place] HEMATOLOGY MCH 32.7 27.0 - 11/13 The 31.0 [place] HEMATOLOGY MCHC 33.6 32.0 - 11/13 The 36.0 [place] HEMATOLOGY Platelet 186 133 - 450 11/13 [place] HEMATOLOGY RDW 14.0 11.5 - 11/13 The 14. [place] HEMATOLOGY MPV 7.4 7.4 - 10.4 11/13 [place] HEMATOLOGY Hgb 12.2 14.0 - 11/13 The 18.0 [place] HEMATOLOGY RBC 3.73 4.70 - 11/13 The 6.10 [place] HEMATOLOGY MCV 97.6 80.0 - 11/13 The 94.0 [place] HEMATOLOGY Hct 36.4 42.0 - 11/13 The 54.0 [place] HEMATOLOGY WBC 9.7 3.7 - 10.4 11/13 [facility] [place] HEMATOLOGY Basophils # 0.1 0.0 - 0.2 11/13 [facility] [place] HEMATOLOGY Lymphocytes 2.0 1.0 - 5.5 11/13 [facility] [place] HEMATOLOGY Monocytes # 0.7 0.0 - 0.8 11/13 [facility] [place] HEMATOLOGY Eosinophils 0.4 0.0 - 0.5 11/13 The # [place] HEMATOLOGY Basophils 0.6 0.0 - 1.0 11/13 [facility] [place] HEMATOLOGY Segs-Bands # 6.6 1.5 - 8.1 11/13 [facility] [place] HEMATOLOGY Lymphocytes 20.5 20.0 - 11/13 The 40.0 [place] HEMATOLOGY Monocytes 7.3 2.0 - 12.0 11/13 The [place] HEMATOLOGY Eosinophils 3.7 0.0 - 4.0 11/13 [facility] [place] HEMATOLOGY Segs 67.9 45.0 - 11/13 The 75.0 [place] TOXICOLOGY Vanco Tr TND NA 11/13 [place] TOXICOLOGY Vanco Tr 24.1 11/13 <sup>7</sup>I nterpretive [place] Data: Therapeutic Range:
Trough: 10 - 20 ug/mL
Peak: 20 - 40 ug/mL
Potential Toxicity: >80 ug/mL Pathology Reports No Data Provided for This Section Diagnostic Reports Report Value Date Source Ext Lower Venous Doppler Study: Ext Lower Venous Doppler Bilat US 03/13/2016 11:06 PM CDT 03/13/2016 [facility] Bil US Ordering Physician: Blanche Diaz MD Clinical Indication: Pain, Limb. 50-year-old with bilateral lower extremity pain, worse on the left than the right. Comparison: None TECHNIQUE: Sonographic evaluation of the bilateral lower [...] no evidence for deep venous thrombosis. SL: [id number] Chest 1view DX Study: Chest 1view DX 03/13/2016 11:18 PM CDT 03/13/2016 [facility] Ordering Physician: Blanche Diaz MD Clinical Indication: Fever Comparison: February 15, 2016 FINDINGS: A right arm PICC line catheter [...] no pneumothorax. No acute cardiopulmonary disease. SL: [id number] Chest 1view DX Clinical Indication: Fever; 02/15/2016 [facility] Comparison: 02/15/2015 FINDINGS: AP chest radiographs shows normal lung volumes without interstitial or airspace opacities, pleural effusions or pneumothorax. The heart size and pulmonary vasculature are normal. The trachea is midline. There are no clinically significant osseous abnormalities noted. IMPRESSION: No chest radiographic evidence of acute cardiopulmonary disease. SL: [id number] Foot series DX Clinical Indication: Pain and swelling. Post surgery. 2015 [facility] [facility] Comparison: 01/31/2016. FINDINGS: The 4 views of the foot [...] post transmetatarsal amputation, as noted above. SL: [id number] Abdominal Aorta with Clinical Indication: Gangrene; right foot gangrene. 12/2015 [facility] runoff CTA Comparison: None TECHNIQUE: CT angiography of the abdomen, pelvis, and bilateral lower extremities was performed after administration of iodinated contrast. Coronal and sagittal reconstructions were obtained. 3-D recons truction imaging, MIP with postprocessing was also performed of the arterial vessels. IV CONTRAST: [address] [...] the right common femoral artery (greater than 80 %). 2. Severe multifocal atherosclerosis throughout the superficial [...] 5th MCP is concerning for osteomyelitis. SL: [id number] Retroperitoneal limited Clinical Indication: Renal insufficiency 02/01/2016 [facility] US Comparison: None TECHNIQUE: Multiple longitudinal and transverse real time sonographic [...] with hematuria or urinary tract infection. SL: [id number] Ext Lower Arterial Clinical Indication: Right leg claudication and leg ulcer. 01/31/2016 [facility] Doppler unilat US Comparison: None TECHNIQUE: Sonographic evaluation of the right lower extremity arteries was performed with grayscale and color Doppler imaging with standard technique. 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 SFA: Monophasic waveforms. Spectral broadening. Mildly decreased peak systolic velocities. This may be related to collateral flow. POP: Monophasic waveforms. Spectral broadening with moderately decreased peak systolic velocities. 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 Spectral broadening with severely decreased [...] or conventional angiography for complete assessment. SL: [id number] Foot series DX Clinical Indication: Pain and swelling , status post amputation 4 years ago 01/31/2016 [facility] Comparison: None FINDINGS: 3 views of the right foot. Transmetatarsal 1st and 2nd ray amputation. No erosive change or periostitis to suggest osteomyelitis of the metatarsal stumps. No acute fracture or dislocation. No soft tissue gas or radiopaque foreign body. IMPRESSION: Postoperative change. No acute osseous changes. If there is continued concern, MRI (preferred) or three-phase bone scan of the right foot may be beneficial. SL: [id number] Chest 2 views DX NAME: REMEDIOS SANCHEZ 02/15/2015 [facility] : 1965 SEX: M Ordering Physician: Jaciel De Chest 2 views : Feb 15, 2015 01:43:00 PM. CLINICAL INDICATION: chest pain; smoker / See [...] No acute cardiopulmonary disease. SL: 24 Wrist complete DX NAME: REMEDIOS SANCHEZ 02/09/2015 [facility] : 1965 SEX: M Ordering Physician: Víctor Wasserman Wrist complete ( min.3 views) : Feb 09, 2015 03:45:00 PM. CLINICAL INDICATION: Pain and swelling / See [...] injury of the left wrist. SL: [address] Name: REMEDIOS SANCHEZ 01/23/2015 [facility] : 1965 SEX: M Ordering Physician: Tim Fry Brain wo contrast [...] evidence for intracranial mass, mass effect or extra-axial fluid collection. No intracranial hemorrhage is seen. 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 SL: 23 Consultation Notes No Data Provided for This Section Discharge Summaries No Data Provided for This Section History and Physicals No Data Provided for This Section Vital Signs Vital Sign Value Date Comments Source Systolic (mm Hg) 84 04/05/2016 [facility] Diastolic (mm Hg) 47 04/05/2016 [facility] Respitory Rate 18 04/05/2016 [facility] Heart Rate 76 04/05/2016 [facility] Systolic (mm Hg) 80 04/05/2016 [facility] Diastolic (mm Hg) 49 04/05/2016 [facility] Respitory Rate 18 04/05/2016 [facility] Heart Rate 73 04/05/2016 [facility] Respitory Rate 18 04/05/2016 [facility] Heart Rate 72 04/05/2016 [facility] Systolic (mm Hg) 79 04/05/2016 [facility] Diastolic (mm Hg) 42 04/05/2016 [facility] Temperature Oral (F) 97.7 F 04/05/2016 [facility] Temperature Oral (F) 97.7 F 04/05/2016 [facility] Temperature Oral (F) 98.2 F 04/05/2016 [facility] Weight 98.6 04/05/2016 [facility] BMI Calculated 28.81 04/05/2016 [facility] Height 185 cm 04/05/2016 [facility] Respitory Rate 18 03/14/2016 [facility] Systolic (mm Hg) 119 03/14/2016 [facility] Diastolic (mm Hg) 63 03/14/2016 [facility] Systolic (mm Hg) 124 03/14/2016 [facility] Diastolic (mm Hg) 58 03/14/2016 [facility] Respitory Rate 16 03/14/2016 [facility] Temperature Oral (F) 98.8 F 03/14/2016 [facility] Respitory Rate 18 03/14/2016 [facility] Systolic (mm Hg) 129 03/14/2016 [facility] Diastolic (mm Hg) 62 03/14/2016 [facility] Temperature Oral (F) 98.7 F 03/14/2016 [facility] Heart Rate 95 03/14/2016 [facility] BMI Calculated 28.69 03/13/2016 [facility] Weight 98.636 03/13/2016 [facility] Temperature Oral (F) 98.6 F 03/13/2016 [facility] Height 185.42 cm 03/13/2016 [facility] Heart Rate 105 03/13/2016 [facility] Heart Rate 111 02/18/2016 [facility] Temperature Oral (F) 98.8 F 02/18/2016 [facility] Respitory Rate 18 02/18/2016 [facility] Systolic (mm Hg) 110 02/18/2016 [facility] Diastolic (mm Hg) 56 02/18/2016 [facility] Temperature Oral (F) 98.3 F 02/18/2016 [facility] Heart Rate 97 02/18/2016 [facility] Systolic (mm Hg) 94 02/18/2016 [facility] Diastolic (mm Hg) 56 02/18/2016 [facility] Respitory Rate 18 02/18/2016 [facility] Temperature Oral (F) 98.2 F 02/18/2016 [facility] Heart Rate 86 02/18/2016 [facility] Systolic (mm Hg) 112 02/18/2016 [facility] Diastolic (mm Hg) 54 02/18/2016 [facility] Respitory Rate 18 02/18/2016 [facility] Weight 96.023 02/08/2016 [facility] BMI Calculated 28.69 02/08/2016 [facility] Weight 98.636 02/08/2016 [facility] Height 185.42 cm 02/08/2016 [facility] Weight 97.273 02/01/2016 [facility] BMI Calculated 28.29 02/01/2016 [facility] Height 185.42 cm 02/01/2016 [facility] Height 185.42 cm 01/31/2016 [facility] BMI Calculated 27.63 01/31/2016 [facility] Respitory Rate 16 02/16/2015 [facility] Temperature Oral (F) 98.0 F 02/16/2015 [facility] Respitory Rate 18 02/16/2015 [facility] Heart Rate 77 02/16/2015 [facility] Systolic (mm Hg) 175 02/16/2015 [facility] Diastolic (mm Hg) 94 02/16/2015 [facility] Temperature Oral (F) 98.2 F 02/16/2015 [facility] Heart Rate 74 02/16/2015 [facility] Systolic (mm Hg) 164 02/16/2015 [facility] Diastolic (mm Hg) 89 02/16/2015 [facility] Respitory Rate 18 02/16/2015 [facility] Temperature Oral (F) 97.5 F 02/16/2015 [facility] Systolic (mm Hg) 145 02/16/2015 [facility] Diastolic (mm Hg) 83 02/16/2015 [facility] Heart Rate 72 02/16/2015 [facility] Height 185.42 cm 02/16/2015 [facility] BMI Calculated 28.58 02/16/2015 [facility] Weight 98.267 02/16/2015 [facility] Weight 13.636 02/15/2015 [facility] BMI Calculated 3.97 02/15/2015 [facility] Height 185.42 cm 02/15/2015 [facility] Temperature Oral (F) 98.2 F 02/09/2015 [facility] Heart Rate 88 02/09/2015 [facility] Respitory Rate 18 02/09/2015 [facility] Systolic (mm Hg) 173 02/09/2015 [facility] Diastolic (mm Hg) 82 02/09/2015 [facility] BMI Calculated 31.47 02/09/2015 [facility] Weight 108.182 02/09/2015 [facility] Height 185.42 cm 02/09/2015 [facility] Systolic (mm Hg) 189 02/09/2015 [facility] Diastolic (mm Hg) 97 02/09/2015 [facility] Heart Rate 77 02/09/2015 [facility] Respitory Rate 16 02/09/2015 [facility] Systolic (mm Hg) 172 01/23/2015 [facility] Diastolic (mm Hg) 79 01/23/2015 [facility] Systolic (mm Hg) 174 01/23/2015 [facility] Diastolic (mm Hg) 92 01/23/2015 [facility] Systolic (mm Hg) 184 01/23/2015 [facility] Diastolic (mm Hg) 86 01/23/2015 [facility] Respitory Rate 18 01/23/2015 [facility] Weight 104.545 01/23/2015 [facility] Height 185.42 cm 01/23/2015 [facility] BMI Calculated 30.41 01/23/2015 [facility] Respitory Rate 18 01/23/2015 [facility] Heart Rate 92 01/23/2015 [facility] Temperature Oral (F) 98.5 F 01/23/2015 [facility] Encounters Location Location Encounter Encounter Reason Attending ADM DC Status Source Details Type Number For Provider Date Date Visit [facility] OP Recurring [id number] Nabeel 10/31 11/30 [facility] Rosibel /2013 [facility] EC Emergency [id number] Edozie 01/23 01/23 [facility] Lisandra /2014 [facility] EC Emergency [id number] Az Alana 02/09 02/09 [facility] /2014 [facility] OBS [id number] Juan 02/15 02/16 [facility] Torres /[address] [place] [address] [facility] Inpatient [id number] Abbas 01/30 02/17 [facility] Championi /2015 [facility] Emergency [id number] Blanche 03/13 03/14 [facility] Gott[facility] /2015 [facility] Outpatient [id number] Abbas 04/05 04/06 [facility] Procedures Procedure Code Date Perfomer Comments Source Amputation of toe [id number] [facility] Amputation of [id number] 2 toes The toe<sup>1</sup> [place] Blood transfusion [id number] [facility] Assessment and Plan Assessment and Plan Date Source Extracted from:Title: id 02/18/2016 [facility] Author: Rogerio Ruggiero DO Date: 02/18/16 Impression and Plan The patient was seen and examined by me with the resident/PRODUCT OPERATIONS ASSOCIATE/PA and I agree with the History/Exam documented. Extracted from:Title: Dr. Eugene Podiatry Consultation Author: Lise Eugene DPM Date: 02/10/16 Impression and Plan Diagnosis Gangrene of foot ([id number] I96, Working, Medical). PVD (peripheral vascular disease) (VUI05-GX I73.9, Working, Medical). Course: Worsening. - PLAN FOR OR ON SUNDAY MORNING FOR A TRANSMETATARSAL AMPUTATION AT 8AM WITH DR. GARCIA - NPO/CONSENT/HOLD ANTICOAG MEDS PRIOR TO SX - ALTERNATIVES, RISKS AND COMPLICATIONS WERE DISCUSSED IN DETAIL WITH THE PATIENT AT BEDSIDE TODAY. HE UNDERSTANDS THAT NO GUARANTEES CAN BE MADE TO THE OUT COME OF THE PROCEDURE. HE ALSO UNDERSTANDS TH AT IF HE CONTINUES TO SMOKE OR USE NICOTENE PRODUCTS THIS SURGERY WILL FAIL AND WILL RESULT IN THE LOSS OF HIS LEG. - I ALSO EXPRESSED TO HIM THAT A BKA WOULD BE THE BEST TREATMENT ALTERNATIVE FOR HIS PAIN. HE IS REFUSING A BKA AND WOULD LIKE TO TRY A TMA OR PARTIAL FOOT AMPUATATION TO STOP THE PAIN AND REMOVE THE GA NGRENE AND INFECTION. HE TOLD ME HE WOULD QUIT SMOKING TO BE COMPLIANT WITH HIS TREATMENT AND UNDERSTANDS IF HE DOES NOT STOP SMOKING HE WILL LIKELY LOSE HIS LEG WITHIN THE YEAR. -NURSING TO APPLY BETADINE AND DSD DAILY -NWB right leg, use walker for assistance Extracted from:Title: Consult Note 02/16/2015 [facility] Author: Foreign Toscano MD Date: 02/16/15 Assessment/Plan 1.Angina pectoris Mi ruled out. An echocardiogram and a nuclear stress test were ordered. 2.Hypertension High on admission and now better. 3.Hyperlipidemia Heart healthy diet and regular exercise recommended. Needs statin. Orders: CDM Lexiscan Stress Test with Nuclear Medicine Diet NPO Diet NPO After Midnight Medication Instructions to Nurse Medication Instructions to Nurse Arthur Perfusion w/ Stress PreProcedure Instructions to Nurse PreProcedure Instructions to Nurse Stress Test w/ NM Plan of Care No Data Provided for This Section Social History Social History Date Source Social History TypeResponse 10/21/2013 [facility] Substance Abuse Previous Treatment: None. Alcohol Current, Type Beer, Wine, Liquor. Frequency: 1-2 times per month. Smoking Status Current every day smoker; Lives with someone who smokes; Cigarette Smoking Last 365 Days Yes; Reg Smoking Cessation Counseling Yes Family History No Data Provided for This Section Advance Directives No Data Provided for This Section Functional Status No Data Provided for This Section
--- NOTE | 2018-12-12 12:12 | ER ---
Nurse's Notes [facility] Name: Karlos Leblanc Age: 52 yrs Sex: Male : 1965 Arrival Date: 12/12/2018 Time: 11:28 Bed 19 Private MD: Diagnosis: Other acute postprocedural pain Presentation: 12/12 11:10 Presenting complaint: EMS states: 52 yr. old male, A \T\ O x 4 had the 2nd and 4th toes rb1 amputated on his left foot last Sunday in [facility] due to flesh eating bacteria and was discharged yesterday with no pain medication. Pain is currently 10/10. History of Seizures, COPD, HTN, and skin cancer. Vital signs are normal. Pt. walker is at bedside. Transition of care: patient was not received from another setting of care. Onset of symptoms was December 07, 2018. Risk Assessment: Do you want to hurt yourself or someone else? Patient reports no desire to harm self or others. Care prior to arrival: None. 11:10 Method Of Arrival: EMS: [facility] 11:10 Acuity: KENIA 3 rb1 12:00 Initial Sepsis Screen: Does the patient meet any 2 criteria? No. Patient's initial ph sepsis screen is negative. Does the patient have a suspected source of infection? No. Patient's initial sepsis screen is negative. Historical: - Allergies: 11:10 NKDA; rb1 - PMHx: 11:10 ADD/ADHD; CHF; COPD; CVA; Myocardial infarction; PVD; Seizures; skin cancer; rb1 - PSHx: 11:10 cancer removed from right hand; Left toes amputated; rb1 - Immunization history:: Adult Immunizations up to date. - Social history:: Smoking status: Patient uses tobacco products, smokes one pack cigarettes per day. - Ebola Screening: : No symptoms or risks identified at this time. Screenin:00 Abuse screen: Denies threats or abuse. Denies injuries from another. Nutritional ph screening:. Tuberculosis screening: No symptoms or risk factors identified. Fall Risk None identified. Assessment: 12:00 General: Appears in no apparent distress. uncomfortable, Behavior is calm, cooperative, ph appropriate for age, Denies fever, feeling ill. Pain: Complains of pain in left foot. Neuro: Level of Consciousness is awake, alert, obeys commands, Oriented to person, place, time, situation. Cardiovascular: Capillary refill < 3 seconds in bilateral fingers Patient's skin is warm and dry. Respiratory: Airway is patent Respiratory effort is even, unlabored, Respiratory pattern is regular, symmetrical. Derm: Skin is healthy with good turgor, Skin is pink, warm \T\ dry. Musculoskeletal: Amputation of left first toe and left third toe. Circulation, motion, and sensation intact. Range of motion: intact in all extremities. Vital Signs: 11:10 BP 116 / 80; Pulse 80; Resp 17; Temp 98.4(O); Pulse Ox 95% on R/A; Weight 72.12 kg (R); rb1 Height 6 ft. 1 in. (185.42 cm) (R); Pain 10/10; 12:50 BP 122 / 84; Pulse 76; Resp 18; Temp 97.9; Pulse Ox 95% ; ph 11:10 Body Mass Index 20.98 (72.12 kg, 185.42 cm) rb1 ED Course: 11:10 Arm band placed on right wrist. rb1 11:28 Patient arrived in ED. rb1 11:29 Modesto Wang MD is Attending Physician. gs 11:33 Triage completed. rb1 11:36 Kelsey Contreras RN is Primary Nurse. ph 12:00 Patient has correct armband on for positive identification. Bed in low position. Call ph light in reach. Pulse ox on. NIBP on. 12:09 Brian Fernandez DPM is Referral Physician. gs 12:50 No provider procedures requiring assistance completed. Patient did not have IV access ph during this emergency room visit. Administered Medications: No medications were administered Outcome: 12:11 Discharge ordered by . gs 12:56 Patient left the ED. iw 12:56 Discharged to home ambulatory. ph 12:56 Condition: good 12:56 Discharge instructions given to patient, Instructed on discharge instructions, follow up and referral plans. medication usage, Demonstrated understanding of instructions, follow-up care, medications, Prescriptions given X 1. Signatures: Ella Talavera, RN RN iw Kelsey Contreras RN RN ph Vira Mondragon RN RN rb1 Modesto Wang MD MD Corrections: (The following items were deleted from the chart) 17:22 17:21 BP 122 / 84; Pulse 76bpm; Resp 18bpm; Pulse Ox 95%; Temp 97.9F; ph ph
--- NOTE | 2018-12-12 12:12 | EDPHYS ---
Physician Documentation [facility] Name: Karlos Leblanc Age: 52 yrs Sex: Male : 1965 Arrival Date: 12/12/2018 Time: 11:28 Bed 19 Private MD: ED Physician Modetso Wang HPI: 12/12 12:06 This 52 yrs old Male presents to ER via EMS with complaints of Foot Pain. gs 12:06 The patient presents with pain. The complaints affect the left foot. Onset: The gs symptoms/episode began/occurred 2 day(s) ago, and became worse. Modifying factors: The symptoms are alleviated by nothing, the symptoms are aggravated by nothing. Severity of symptoms: At their worst the symptoms were moderate, in the emergency department the symptoms are unchanged. The patient has not experienced similar symptoms in the past. surgery. Historical: - Allergies: 11:10 NKDA; rb1 - PMHx: 11:10 ADD/ADHD; CHF; COPD; CVA; Myocardial infarction; PVD; Seizures; skin cancer; rb1 - PSHx: 11:10 cancer removed from right hand; Left toes amputated; rb1 - Immunization history:: Adult Immunizations up to date. - Social history:: Smoking status: Patient uses tobacco products, smokes one pack cigarettes per day. - Ebola Screening: : No symptoms or risks identified at this time. ROS: 12:06 All other systems are negative. gs Exam: 12:06 Constitutional: The patient appears alert, awake. gs 12:06 Musculoskeletal/extremity: Perfusion: the patient is warm, Sensation intact. suture lines clean no drainage no cellulitis. Vital Signs: 11:10 BP 116 / 80; Pulse 80; Resp 17; Temp 98.4(O); Pulse Ox 95% on R/A; Weight 72.12 kg (R); rb1 Height 6 ft. 1 in. (185.42 cm) (R); Pain 10/10; 12:50 BP 122 / 84; Pulse 76; Resp 18; Temp 97.9; Pulse Ox 95% ; ph 11:10 Body Mass Index 20.98 (72.12 kg, 185.42 cm) rb1 MDM: 11:48 Patient medically screened. gs 12:06 Data reviewed: vital signs, nurses notes. Physician consultation: Brian Slate DPM gs regarding patient's condition, and will see patient in office. Administered Medications: No medications were administered Disposition: 12/12/18 12:11 Discharged to Home. Impression: Other acute postprocedural pain. - Condition is Stable. - Discharge Instructions: Pain Medicine Instructions, [id number]. - Prescriptions for Tylenol- Codeine #4 300-60 mg Oral Tablet - take 1 tablet by ORAL route every 12 hours As needed; 10 tablet. - Medication Reconciliation Form, Thank You Letter, Antibiotic Education, Prescription Opioid Use form. - Follow up: Brian Fernandez DPM; When: 1 - 2 days; Reason: Re-evaluation by your physician. Signatures: Ella Talavera RN RN iw Kelsey Contreras RN RN ph Vira Mondragon RN RN rb1 Modesto Wang MD MD gs Corrections: (The following items were deleted from the chart) 12:56 12:11 12/12/2018 12:11 Discharged to Home. Impression: Other acute postprocedural pain. iw Condition is Stable. Forms are Medication Reconciliation Form, Thank You Letter, Antibiotic Education, Prescription Opioid Use. Follow up: Brian Fernandez; When: 1 - 2 days; Reason: Re-evaluation by your physician. gs
== END 2018-12-12 12:56 | disposition home or self-care (01) ==
LOC: ER 11:21
DX: G89.18 Other acute postprocedural pain (principal); F90.9 Attention-deficit hyperactivity disorder, unspecified type; I11.0 Hypertensive heart disease with heart failure; I50.9 Heart failure, unspecified; J44.9 Chronic obstructive pulmonary disease, unspecified; I25.2 Old myocardial infarction; C44.90 Unspecified malignant neoplasm of skin, unspecified; F17.210 Nicotine dependence, cigarettes, uncomplicated; Z86.73 Personal history of transient ischemic attack (TIA), and cerebral infarction without residual deficits
CPT/HCPCS: 99283

== ENCOUNTER 2018-12-27 11:30 | Emergency (ER) | payer OTHER ==
--- OUTSIDE RECORDS SUMMARY | 2018-12-27 11:32 | XMS REPORT | Clinical Summary ---
:1965 [facility] Address [address] [place] [address] Care Team Providers Name Role Phone Unavailable [...] - Hospital Encounter General Internal ArifFermin, Seizures ([facility] ); 10/14/2018 Medicine MD Acute kidney injury ([facility]); Gadicherjamaal, H/O ETOH abuse; Emily Status epilepticus ([facility]) MD Olga 10/12/2018 Travel after 12/26/2017 Social History Tobacco Use Types Packs/Day Years [...] procedure are in the results section. after 12/26/2017 Results EKG-SCANNED (10/16/2018 2:10 PM CDT) Narrative Performed At RHYTHM STRIP - SCAN (10/16/2018 2:10 PM CDT) Narrative Performed At EEG AWAKE AND DROWSY (10/14/2018 1:57 PM CDT) Specimen Narrative Performed At Date(s) of EE10/14/18 GE RIS DATE OF REPORT: 10/14/18 ACC: [id number] EEG Number: [id number] Start time: 13:36 Stop time: 13:57 ICD-10: R56.9 Unspecified Convulsions CPT Code: 46014 EEG: awake and drowsy <40 min HISTORY: [...] of EE10/14/18 DATE OF REPORT: 10/14/18 ACC: [id number] EEG Number: [id number] Start time: 13:36 Stop time: 13:57 ICD-10: R56.9 Unspecified Convulsions CPT Code: 07570 EEG: awake and drowsy <40 min HISTORY: [...] Sodium 133 (L) 136 - 145 meq/L [facility] Potassium 4.1Comment: Specimen slightly 3.5 - 5.1 meq/L [facility] Ch[facility] 103 98 - 107 meq/L [facility] CO2 19 (L) 22 - 29 meq/L [facility] BUN 8 7 - 21 mg/dL [facility] Creatinine 0.83Comment: Specimen 0.57 - 1.25 mg/dL [facility] slightly hemolyzed [facility] Glucose 84 70 - 105 mg/dL [facility] Calcium 8.5 8.4 - 10.2 mg/dL [facility] EGFR 97Comment: ESTIMATED GFR IS mL/min/1.73 sq m [facility] NOT ACCURATE [facility] CLEARANCE IN PREDICTING GLOMERULAR FILTRATION RATE. ESTIMATED GFR IS NOT APPLICABLE FOR DIALYSIS PATIENTS. Specimen Blood Performing Organization Address City/State/Zipcode Phone Number [facility] [address] [place] [address] [phone] CENTER CBC with platelet count + automated diff (10/13/2018 4:25 AM CDT) WBC 9.7 3.5 - 10.5 K/L [facility] RBC 4.44 (L) 4.63 - 6.08 M/L [facility] Hemoglobin 14.9 13.7 - 17.5 GM/DL [facility] Hematocrit 44.1 40.1 - 51.0 % [facility] MCV 99.3 (H) 79.0 - 92.2 fL [facility] MCH 33.6 (H) 25.7 - 32.2 pg [facility] MCHC 33.8 32.3 - 36.5 GM/DL [facility] RDW 15.2 (H) 11.6 - 14.4 % [facility] Platelets 177 150 - 450 K/CU MM [facility] MPV 9.7 9.4 - 12.4 fL [facility] nRBC 0 0 - 0 /100 WBC [facility] % Neutros 73 % [facility] % Lymphs 16 % [facility] % Monos 11 % [facility] % Eos 0 % [facility] % Baso 0 % [facility] # Neutros 7.05 (H) 1.78 - 5.38 K/L [facility] # Lymphs 1.52 1.32 - 3.57 K/L [facility] # Monos 1.04 (H) 0.30 - 0.82 K/L [facility] # Eos 0.01 (L) 0.04 - 0.54 K/L [facility] # Baso 0.04 0.01 - 0.08 K/L [facility] Immature Granulocytes-Relative 0 0 - 1 % [facility] Specimen Blood Performing Organization Address City/[facility] Phone Number [facility] [address] [place] [phone] [place] Blood Culture - Routine (Right Venipuncture) (10/12/2018 5:31 PM CDT)Only the most recent of2 resultswithin the time period is included. Result No growth in 5 days [facility] Specimen Blood Performing Organization Address City/[facility] Phone Number [address] [phone] [place] Vitamin B12 and Folate (10/12/2018 5:28 PM CDT) Vitamin B12 683 213 - 816 pg/mL [facility] Folate >40.0 >=7.0 ng/mL [facility] Specimen Blood Performing Organization Address City/[facility] Phone Number [facility] [address] [place] [phone] [place] Phenytoin level, total and free (10/12/2018 5:28 PM CDT) Phenytoin 13.0 10.0 - 20.0 ug/mL [facility] Dilantin, Free 0.58 (L) 1.00 - 2.00 mcg/ml [facility] Specimen Blood Narrative Performed At Performing Organization Address City/[facility] Phone Number [facility] [address], [address] [place] [address] Phosphorus (10/12/2018 5:28 PM CDT) Phosphorus 4.0 2.3 - 4.7 mg/dL [facility] Specimen Blood Performing Organization Address City/State/Zipcode Phone Number [facility] [address] [place] [address] [phone] [place] Magnesium (10/12/2018 5:28 PM CDT) Magnesium 2.5 1.6 - 2.6 mg/dL [facility] Specimen Blood Performing Organization Address City/[facility]/Zipcode Phone Number [facility] [address] [place] [address] [phone] brain without IV contrast (10/12/2018 4:38 PM CDT) Specimen Narrative Performed At FINAL REPORT [facility] CT head without contrast. Reason [...] MD Report Verified Date/Time:10/12/2018 16:58:56 Reading Location: [facility] C0[facility] Neuro Reading Room Procedure Note Interface, External [...] Report Verified Date/Time: 10/12/2018 16:58:56 Reading Location: [facility] [id number] Neuro Reading Room Performing Organization Address City/State/Zipcode Phone Number [facility] Urinalysis w/Microscopic (10/12/2018 3:59 PM CDT) Color, UA Light Yellow [facility] Clarity, UA Clear [facility] Specific [place], UA 1.007 1.001 - 1.035 [facility] pH, UA 5.5 5.0 - 8.0 [facility] Protein, UA 10 mg/dL (A) Negative [facility] Glucose, UA Negative Negative [facility] Ketones, UA 20 mg/dL (A) Negative [facility] Bilirubin, UA Negative Negative [facility] Blood, UA Trace (A) Negative [facility] Nitrite, UA Negative Negative [facility] Leukocytes, UA Negative Negative [facility] Urobilinogen, UA 0.2 0.2 - 1.0 mg/dL [facility] RBC, UA <1 /HPF [facility] WBC, UA 1 /HPF [facility] Squam Epithel, UA <1 /HPF [facility] Specimen Source Urine, Voided [facility] Specimen Urine Performing Organization Address City/State/Zipcode Phone Number [facility] [address] [place] [address] CENTER after 12/26/2017 Insurance Payer Benefit Plan / Subscriber ID Type Phone Address Group [employer] - [employer]ARE xxxxxxxx Maps Contracted [phone] [address] MED[employer] HMO POS [id number] [place] [address] (Home) [place] [address]
[2018-12-27] MEDS ORDERED: LORazepam 2 MG/ML VIAL ONE (11:37)
[2018-12-27] MEDS ORDERED: NA CHLORIDE 0.9% 1,000 ML ONE (11:37)
--- OUTSIDE RECORDS SUMMARY | 2018-12-27 11:38 | XMS REPORT | Continuity of Care Document ---
:1965 Author Organization [employer] Care Team Providers Name Role Phone [employer] Unavailable Unavailable Problems Problem Status Onset Classification Date Comments Source Date Reported ANEMIA Active 04/04/20 The [facility] [place] Discharge 03/14/20 03/17/2016 The Diagnosis: Acute [facility] [place] on chronic renal failure Discharge 03/14/20 03/17/2016 The Diagnosis: Anemia [address] [place] Discharge 03/14/20 03/17/2016 The Diagnosis: [facility] Post-operative pain Discharge 03/14/20 03/17/2016 The Diagnosis: Acute [address] [facility] hypokalemia OTHER Active 03/13/20 The [facility] [place] [facility] FOOT GANGRENE Active 01/31/20 The [facility] [place] LEFT FOOT SORES Active 01/31/20 The [facility] [place] [facility] Discharge 02/17/20 02/19/2015 The Diagnosis: [facility] Hyperlipidemia Discharge 02/17/20 02/19/2015 The Diagnosis: [address] [place] Hypertension Discharge 02/17/20 02/19/2015 The Diagnosis: Angina [address] [place] pectoris CHEST PAIN Active 02/16/20 The [facility] [place] [facility] CP Active 02/16/20 The [facility] [place] Discharge 02/10/20 02/12/2015 The Diagnosis: Wrist [address] [place] sprain LEFT WRIST PAIN Active 02/10/20 The [facility] [place] [place] Discharge 01/24/20 01/26/2015 The Diagnosis: [address] [facility] Epileptic seizure, generalized Discharge 01/24/20 01/26/2015 The Diagnosis: [address] [place] [facility] Cerebral seizure AMS Active 01/24/20 The [address] [facility] WOUND INFECTION V Active 10/21/19 The NECFAS;CHRONIC [facility] OSTEOMY Acute Active Problem 04/08/2016 The osteomyelitis [facility] CHF - Congestive Active Problem 04/08/2016 The heart failure [facility] HTN (Confirmed) Active Problem 04/08/2016 [place] Bronchitis Active Problem 04/08/2016 [place] COPD Active Problem 04/08/2016 [place] Nose bleed Active Problem 04/08/2016 [place] Seizure Active Problem 04/08/2016 [place] H/O candidiasis Active Problem 04/08/2016 [place] H/O amputation of Active Problem 04/08/2016 The lesser toe [place] [facility] Hx of peripheral Active Problem 04/08/2016 The vascular disease [facility] BPH (Confirmed) Active Problem 04/08/2016 [place] CELLULITIS OF Active The FOOT [facility] AC Active The OSTEOMYELITIS-UNS [facility] PEC CHEST PAIN NOS Active [place] GANGRENE, NOT Active The ELSEWHERE [facility] CLASSIFIED ANEMIA, Active The UNSPECIFIED [facility] Medications Medication Details Route Status Patient Ordering Order Source Instructions Provider Date Sodium Chloride IVPB, 150 Active The 0.9% IV ml/hr, PRN, [facility] [place] Start date: 04/05/16 8:00:00 ACTIVE DIRECTORY SPECIALIST, Duration: 30, 1,000 ml EPINEPHrine 0.5 mg, 0.5 Active The mL, Route: 2015 [facility] IVP, Drug form: INJ, PRN, PRN Other -See Comment, Start date: 04/05/16 7:22:00 ACTIVE DIRECTORY SPECIALIST, Duration: 30 day, Stop date: 05/05/16 7:21:00 CSTNotes: MEDICATION WASTE Product Size: 1 mg Product Wasted: ___ mg Solu-CORTEF 100 mg, 2 mL, Active The Route: IVP, 2015 [facility] Drug form: PDR/INJ, PRN, PRN Other -See Comment, Start date: 04/05/16 7:22:00 ACTIVE DIRECTORY SPECIALIST, Duration: 30 day, Stop date: 05/05/16 7:21:00 CSTNotes: (Same as: Solu-CORTEF) Benadryl 50 mg, 1 mL, Active The Route: IVP, 2015 [facility] Drug form: INJ, PRN, PRN Other -See Comment, Start date: 04/05/16 7:22:00 ACTIVE DIRECTORY SPECIALIST, Duration: 30 day, Stop date: 05/05/16 7:21:00 CSTNotes: (Same as: Benadryl) Sodium Chloride IV, 0 ml/hr, Active The 0.9% IV PRN, PRN Blood 2015 [facility] Transfusion, Start date: 04/05/16 7:21:00 ACTIVE DIRECTORY SPECIALIST, Duration: 30, 250 ml heparin flush 500 unit, 5 Active The mL, Route: 2015 [facility] IVP, Drug form: SOLN, PRN, PRN Line Flush, Start date: 04/05/16 7:21:00 ACTIVE DIRECTORY SPECIALIST, Duration: 30 day, Stop date: 05/05/16 7:20:00 CSTNotes: (Same as: Heparin Lock Flush) BD Normal Saline 20 mL, Route: Active The Flush IVP, Drug [address] [facility] Form: INJ, PRN, PRN Line Flush, Start date: 04/05/16 7:21:00 ACTIVE DIRECTORY SPECIALIST, Duration: 30 day, Stop date: 05/05/16 7:20:00 CSTNotes: (Same as: BD Posiflush) Benadryl 25 mg, 0.5 mL, Active The Route: IVP, 2015 [facility] Drug form: INJ, Before Transfusion, PRN Blood Transfusion, Start date: 04/05/16 7:21:00 ACTIVE DIRECTORY SPECIALIST, Duration: 30 day, Stop date: 05/05/16 7:20:00 CSTNotes: (Same as: Benadryl) Tylenol 650 mg, 2 tab, Active The Route: PO, 2015 [facility] Drug form: TAB, Before Transfusion, PRN Blood Transfusion, Start date: 04/05/16 7:20:00 ACTIVE DIRECTORY SPECIALIST, Duration: 30 day, Stop date: 05/05/16 7:19:00 CSTNotes: Do not exceed 4 gm/day. (Same as: Tylenol) Acetaminophen 325 1 tab, Route: Inactive The MG / Hydrocodone PO, Drug Form: 2015 [facility] Bitartrate 5 MG TAB, Dosing Oral Tablet [[place] Weight 98.636, 5/325] kg, ONCE, STAT, Start date: 03/14/16 6:34:00 CDT, Stop date: 03/14/16 6:34:00 CDTNotes: (Same as: [place] 325/5) Do not exceed 4gm/day of acetaminophen. Acetaminophen 300 1 tab, PO, No Longer The MG / Codeine Q4H, PRN Pain, Active 2015 [facility] Phosphate 30 MG X 2 day, # 12 Oral Tablet tab, 0 [Tylenol with Refill(s) Codeine #3] Zofran 4 mg, 2 mL, No Longer The Route: IVP, Active 2015 [facility] Drug form: INJ, ONCE, Dosing Weight 98.636, kg, Priority: STAT, Start date: 03/13/16 23:18:00 CDT, Stop date: 03/13/16 23:18:00 CDTNotes: (Same as: Zofran) MEDICATION WASTE Product Size: 4 mg Product Wasted: ___ mg Dilaudid 0.5 mg, 0.5 No Longer The mL, Route: Active 2015 [facility] IVP, Drug form: INJ, ONCE, Dosing Weight 98.636, kg, Priority: STAT, Start date: 03/13/16 23:18:00 CDT, Stop date: 03/13/16 23:18:00 CDTNotes: Same as: Dilaudid Sodium Chloride 500 mL, 500 No Longer The 0.154 MEQ/ML ml/hr, Infuse Active 2015 [facility] Injectable Over: 1 hr, Solution Route: IV, 500, Drug form: INJ, ONCE, Priority: STAT, Dosing Weight 98.636 kg, Start date: 03/13/16 23:18:00 CDT, Duration: 1 doses or times, Stop date: 03/13/16 23:18:00 CDT Oxycodone 15 mg=3 tab, Active The Hydrochloride 5 MG PO, Q4H, PRN [address] [facility] Oral Tablet Pain Score 7-10, 0 Refill(s) Oxycodone 15 mg, 3 tab, Inactive The Hydrochloride 5 MG Route: PO, 2015 [facility] Oral Tablet Drug form: TAB, Q4H, Dosing Weight 96.023, kg, PRN Pain Score 7-10, Start date: 02/18/16 8:43:00 CDT, Duration: 30 day, Stop date: 03/19/16 8:42:00 CDTNotes: (Same as: Roxicodone) Ceftriaxone 2 gm, Route: No Longer The IVPB, [id number], Active 2015 [facility] Dosing Weight 96.023, kg, Start date: 02/17/16 15:00:00 CDT, Duration: 30 day, Stop date: 03/17/16 15:00:00 CDTNotes: (Same As: Rocephin). Use with 100 mL NS and infuse over 30 min MEDICATION WASTE Product Size: 2000 mg Product Wasted: ___ mg Albuterol 0.83 NEB, PRN, PRN Active The MG/ML Inhalant Respiratory [address] [facility] Solution Protocol, 0 Refill(s) chlorhexidine 1 appl, BATHE, Active The gluconate 40 MG/ML Q--W-, 0 [address] [facility] Medicated Liquid Refill(s) Soap tamsulosin 0.4 mg 0.4 mg=1 cap, Active The oral capsule PO, After 2015 [facility] Dinner, 0 Refill(s) fluconazole 100 mg 200 mg=2 tab, Active The oral tablet PO, [id number], 0 [facility] Refill(s) pantoprazole 40 mg 40 mg=1 tab, Active The oral enteric PO, Before 2015 [facility] coated tablet Breakfast, 0 Refill(s) Acetaminophen 325 1 tab, PO, Active The MG / Hydrocodone Q4H, PRN Pain 2015 [facility] Bitartrate 5 MG Score 1-3, 0 Oral Tablet Refill(s) cefTRIAXone + 2 gm, Route: No Longer The sodium chloride IVPB, [id number], Active 2015 [facility] 0.9% INJ 100 mL Dosing Weight 96.023, kg, Start date: 02/15/16 18:00:00 CDT, Duration: 2 day, Stop date: 02/16/16 18:00:00 CDTNotes: (Same As: Rocephin). Use with 100 mL NS and infuse over 30 min MEDICATION WASTE Product Size: 2000 mg Product Wasted: ___ mg Flomax 0.4 mg, 1 cap, No Longer The Route: PO, Active 2015 [facility] Drug form: CAP, After Dinner, Dosing Weight 96.023, kg, Start date: 02/13/16 17:00:00 CDT, Duration: 30 day, Stop date: 03/13/16 17:00:00 CDTNotes: (Same As: Flomax) "Do Not Crush" vancomycin + 1,000 mg, No Longer The sodium chloride Route: IVPB, Active 2015 [facility] 0.9% INJ 250 mL Q24H, Start date: 02/13/16 6:00:00 CDT, Duration: 30 day, Stop date: 03/13/16 6:00:00 CDTNotes: TIME CRITICAL MEDICATION (Same As: Vancocin) Infusion rate 2001 mg: infuse over 2.5 hours MEDICATION WASTE Product Size: 1000 mg Product Wasted: ___ mg Fluconazole 200 mg, 2 tab, No Longer The Route: PO, Active 2015 [facility] Drug form: TAB, [id number], Dosing Weight 96.023, kg, Start date: 02/12/16 16:00:00 CDT, Duration: 30 day, Stop date: 03/12/16 16:00:00 CDTNotes: (Same as: Diflucan) Dilaudid 1.5 mg, 0.75 No Longer The mL, Route: Active 2015 [facility] IVP, Drug form: INJ, Q4H, Dosing Weight 96.023, kg, PRN Pain Score 7-10, Start date: 02/12/16 14:19:00 CDT, Stop date: 03/13/16 14:18:00 CDTNotes: Same as: Dilaudid gabapentin 600 mg, 2 cap, No Longer The Route: PO, Active 2015 [facility] Drug form: CAP, TID, Dosing Weight 97.273, kg, Start date: 02/12/16 13:00:00 CDT, Duration: 30 day, Stop date: 03/13/16 9:00:00 CDTNotes: (Same as: Neurontin) Naloxone 0.4 mg, 1 mL, Inactive The Route: IVP, 2015 [facility] Drug form: INJ, Q2MIN, Dosing Weight 96.023, kg, PRN Narcotic Reversal, Start date: 02/12/16 9:59:00 CDT, Duration: 8 doses or times, Stop date: Limited # of timesNotes: Same as Narcan Lorazepam 0.5 mg, 0.25 Inactive The mL, Route: 2015 [facility] IVP, Drug form: INJ, Q20Min, Dosing Weight 96.023, kg, PRN Anxiety, Start date: 02/12/16 9:59:00 CDT, Duration: 3 doses or times, Stop date: Limited # of timesNotes: (Same as: Ativan) Ondansetron 4 mg, Route: Inactive The IVP, ONCE, 2015 [facility] Dosing Weight 96.023, kg, PRN Nausea & Vomiting, Start date: 02/12/16 9:59:00 CDT Glycopyrrolate 0.2 mg, 1 mL, Inactive The Route: IVP, 2015 [facility] Drug form: INJ, Q5Min, Dosing Weight 96.023, kg, PRN Bradycardia, Start date: 02/12/16 9:59:00 CDT, Duration: 3 doses or times, Stop date: Limited # of timesNotes: (Same as: [place] Antonio) Flumazenil 0.2 mg, 2 mL, Inactive The Route: IVP, 2015 [facility] Drug form: INJ, PRN, Dosing Weight 96.023, kg, PRN Benzodiazepine Reversal, Initial dose, Start date: 02/12/16 9:59:00 CDT, Duration: 30 day, Stop date: 03/13/16 9:58:00 CDTNotes: (Same as: Romazicon) Fentanyl 25 microgram, Inactive The 0.5 mL, Route: 2015 [facility] IVP, Drug form: INJ, Q5Min, Dosing Weight 96.023, kg, PRN Pain Score 4-6, Start date: 02/12/16 9:59:00 CDT, Duration: 4 doses or times, Stop date: Limited # of timesNotes: (Same as: Sublimaze) Preservative free. Hydralazine 10 mg, 0.5 mL, Inactive The Route: IVP, 2015 [facility] Drug form: INJ, Q20Min, Dosing Weight 96.023, kg, PRN Elevated BP, Start date: 02/12/16 9:59:00 CDT, Duration: 2 doses or times, Stop date: Limited # of timesNotes: (Same as: Apresoline) Push over 5 minutes Hydromorphone 0.5 mg, 0.5 Inactive The mL, Route: 2015 [facility] IVP, Drug form: INJ, Q5Min, Dosing Weight 96.023, kg, PRN Pain Score 7-10, Start date: 02/12/16 9:59:00 CDT, Duration: 4 doses or times, Stop date: Limited # of timesNotes: Same as: Dilaudid Labetalol 10 mg, 2 mL, Inactive The Route: IVP, 2015 [facility] Drug form: INJ, Q5Min, Dosing Weight 96.023, kg, PRN Elevated BP, Start date: 02/12/16 9:59:00 CDT, Duration: 5 doses or times, Stop date: Limited # of times fentaNYL (ANES) Route: IV, Inactive The Drug form: 2015 [facility] INJ, ONCE, Stop date: 02/12/16 8:40:00 CDT propofol (ANES) Route: IV, Inactive The Drug form: 2015 [facility] INJ, ONCE, Stop date: 02/12/16 8:40:00 CDT lidocaine (ANES) Route: IV, Inactive The Drug form: 2015 [facility] INJ, ONCE, Stop date: 02/12/16 8:40:00 CDT LR 1000 mL INJ Route: IV, Inactive The (ANES) Total Volume: 2015 [facility] 1,000, Start date: 02/12/16 7:55:00 CDT, Stop date: 02/12/16 8:55:00 CDT Ceftriaxone 2 gm, Route: No Longer The IVPB, [id number], Active 2015 [facility] Dosing Weight 96.023, kg, Start date: 02/11/16 13:00:00 CDT, Duration: 5 day, Stop date: 02/15/16 13:00:00 CDTNotes: (Same As: Rocephin). Use with 100 mL NS and infuse over 30 min MEDICATION WASTE Product Size: 2000 mg Product Wasted: ___ mg Dilaudid 1 mg, 1 mL, No Longer The Route: IVP, Active 2015 [facility] Drug form: INJ, Q6H, Dosing Weight 96.023, kg, PRN Pain Score 7-10, Start date: 02/11/16 8:37:00 CDT, Duration: 30 day, Stop date: 03/12/16 8:36:00 CDTNotes: Same as: Dilaudid vancomycin 750 mg, 150 No Longer The mL, Route: Active 2015 [facility] IVPB, Drug form: INJ, Q24H, Start date: 02/11/16 6:00:00 CDT, Duration: 30 day, Stop date: 03/11/16 6:00:00 CDTNotes: TIME CRITICAL MEDICATION Same as: Vancocin Infusion rate 2000 mg: infuse over 2.5 hours metoprolol 50 mg, 1 tab, No Longer The Route: PO, Active 2015 [facility] Drug form: ERTAB, Daily, Start date: 02/10/16 9:00:00 CDT, Duration: 30 day, Stop date: 03/10/16 9:00:00 CDTNotes: (Same as: Toprol XL) May split tab, but do not crush. Alprazolam 1 MG 1 mg, 1 tab, No Longer The Oral Tablet Route: PO, Active [facility] [Xanax] Drug form: TAB, Q12H, Dosing Weight 96.023, kg, PRN Anxiety, Start date: 02/10/16 8:19:00 CDT, Duration: 30 day, Stop date: 03/11/16 8:18:00 CDTNotes: With food or milk (Same as: Xanax) vancomycin 750 mg, 150 Inactive The mL, Route: 2015 [facility] IVPB, Drug form: INJ, ONCE, Start date: 02/10/16 5:00:00 CDT, Stop date: 02/10/16 5:00:00 CDTNotes: TIME CRITICAL MEDICATION Same as: Vancocin Infusion rate 2001 mg: infuse over 2.5 hours Anoro 62.5mcg/25 Anoro No Longer The mcg 62.5mcg/25 Active 2015 [facility] mcg, 1 puff, Route: INHALATION, RBID, 02/09/16 20:00:00 CDT, Duration: 30 day, Stop date: 03/10/16 8:00:00 CDT ketOROLAC 30 mg/mL 60 mg, Route: Inactive The injectable IVP, Drug 2015 [facility] solution form: INJ, ONCE, Dosing Weight 96.023, kg, Start date: 02/09/16 17:40:00 CDT, Duration: 1 doses or times, Stop date: 02/09/16 17:40:00 CDT Vancomycin Dosing Vancomycin No Longer The per RPh Dosing per Active 2015 [facility], ., Drug form: MISC, Route: MISC, PRN, PRN Other -See Comment, 02/09/16 14:51:00 CDT, Duration: 30 day, Stop date: 03/10/16 14:50:00 CDT Dilaudid 1 mg, 1 mL, No Longer The Route: IVP, Active 2015 [place] [facility] Drug form: INJ, Q4H, Dosing Weight 96.023, kg, PRN Pain Score 7-10, Start date: 02/09/16 13:01:00 CDT, Duration: 30 day, Stop date: 03/10/16 13:00:00 CDTNotes: Same as: Dilaudid Sodium Chloride 500 mL, 500 Inactive The 0.154 MEQ/ML ml/hr, Infuse 2015 [place] [facility] Injectable Over: 1 hr, Solution Route: IV, 500, Drug form: INJ, ONCE, Priority: STAT, Dosing Weight 96.023 kg, Start date: 02/09/16 12:59:00 CDT, Duration: 1 doses or times, Stop date: 02/09/16 12:59:00 CDT pantoprazole 40 mg, 1 tab, No Longer The Route: PO, Active 2015 [place] Drug form: ECTAB, Before Breakfast, Dosing Weight 96.023, kg, Start date: 02/09/16 9:00:00 CDT, Stop date: 03/09/16 7:30:00 CDTNotes: Tablet should not be chewed or crushed. (Same as: Protonix) chlorhexidine 1 appl, Route: No Longer The gluconate 40 MG/ML BATHE, Active 2015 [place] Medicated Liquid Q-M-W-F, Drug Soap form: SOAP, Start date: 02/09/16 9:00:00 CDT, Duration: 30 day, Stop date: 03/08/16 9:00:00 CDTNotes: (Same As: Milla) Simvastatin 20 mg, 1 tab, No Longer The Route: PO, Active 2015 [place] [facility] Drug form: TAB, Bedtime, Dosing Weight 96.023, kg, Start date: 02/08/16 21:00:00 CDT, Duration: 30 day, Stop date: 03/08/16 21:00:00 CDTNotes: (Same as: Zocor) Cefuroxime 1.5 gm, Route: No Longer The IVPB, [id number], Active 2015 [place] Dosing Weight 96.023, kg, Start date: 02/08/16 21:00:00 CDT, Duration: 3 doses or times, Stop date: 02/09/16 13:00:00 CDT Neutra-Phos 2 pkt, Route: No Longer The PO, Drug Form: Active 2015 [facility] PDR/REC, Dosing Weight 96.023, kg, PRN, PRN [...] phosphate + sodium mL, Route: Active 2015 [facility] chloride 0.9% 500 IVPB, Drug ml INJ [...] phosphate + sodium mL, Route: Active 2015 [facility] chloride 0.9% INJ IVPB, PRN, 250 mL Dosing Weight 96.023, kg, PRN Abnormal Lab Result, Start date: 02/08/16 20:04:00 CDT, Duration: 30 day, Stop date: 03/09/16 20:03:00 CDT, FOR ICU USE ONLYNotes: (Same as: K Phosphate.) 1 mMol phoshate has 1.47 mEq potassium Infuse over 4 hours Magnesium Oxide 800 mg, 2 tab, No Longer The Route: PO, Active 2015 [facility] Drug form: TAB, PRN, Dosing Weight 96.023, kg, PRN Abnormal Lab Result, FOR ICU USE ONLY, Start date: 02/08/16 20:04:00 CDT, Duration: 30 day, Stop date: 03/09/16 20:03:00 CDTNotes: (Same as: Mag-Ox 400) Magnesium oxide [id number] elemental magnesium Dose=____mg magnesium oxide (___mg elemental magnesium) Magnesium Sulfate 2 gm, 50 mL, No Longer The Route: IVPB, Active 2015 [facility] Drug form: INJ, PRN, Dosing Weight 96.023, kg, PRN Abnormal Lab Result, Start date: 02/08/16 20:04:00 CDT, Duration: 30 day, Stop date: 03/09/16 20:03:00 CDT, FOR ICU USE ONLYNotes: WASTE: F/P - Sink; E - Municipal Trash Bin potassium chloride 20 mEq, 15 mL, No Longer The Route: NJ, Active 2015 [facility] Drug form: LIQ, PRN, Dosing Weight 96.023, kg, PRN Abnormal Lab Result, Start date: 02/08/16 20:04:00 CDT, Duration: 30 day, Stop date: 03/09/16 20:03:00 CDT, FOR ICU USE ONLYNotes: (Same as: Potassium Chloride) sodium phosphate + 15 mmol, 5 mL, No Longer The sodium chloride Route: IVPB, Active 2015 [facility] 0.9% INJ 250 mL PRN, Dosing Weight 96.023, kg, PRN Abnormal Lab Result, Start date: 02/08/16 20:04:00 CDT, Duration: 30 day, Stop date: 03/09/16 20:03:00 CDT, FOR ICU USE ONLY sodium phosphate + 45 mmol, 15 No Longer The sodium chloride mL, Route: Active 2015 [facility] 0.9% 500 ml INJ IVPB, Drug 500 mL form: INJ, PRN, Dosing Weight 96.023, kg, PRN Abnormal Lab Result, Start date: 02/08/16 20:04:00 CDT, Duration: 30 day, Stop date: 03/09/16 20:03:00 CDT, FOR ICU USE ONLY Calcium Carbonate 500 mg, 1 tab, No Longer The 500 MG Chewable Route: PO, Active 2015 [facility] Tablet Drug form: CHEWTAB, PRN, Dosing Weight 96.023, kg, PRN Abnormal Lab Result, FOR ICU USE ONLY, Start date: 02/08/16 20:04:00 CDT, Duration: 30 day, Stop date: 03/09/16 20:03:00 CDTNotes: (Same As: Tums) Calcium Carbonate 500 hn=308 mg elemental calcium Dose= mg calcium carbonate [...] The MG/ML Inhalant Route: NEB, Active 2015 [facility] Solution Drug form: SOLN, PRN, Dosing Weight 96.023, kg, PRN Respiratory Protocol, Start date: 02/08/16 20:04:00 CDT, Duration: 30 day, Stop date: 03/09/16 20:03:00 CDTNotes: SEE RT DOCUMENTATION (Same as: Proventil) Dextrose 50% 25 gm, 50 mL, No Longer The Syringe Route: IVP, Active 2015 [facility] Drug Form: INJ, Dosing Weight 96.023, kg, PRN, PRN Blood Glucose Results, Start date: 02/08/16 20:04:00 CDT, Duration: 30 day, Stop date: 03/09/16 20:03:00 CDT Docusate 100 mg, 1 cap, No Longer The Route: PO, Active 2015 [facility] Drug form: CAP, BID, Dosing Weight 96.023, kg, PRN Constipation, Start date: 02/08/16 20:04:00 CDT, Duration: 30 day, Stop date: 03/09/16 20:03:00 CDTNotes: (Same as: Colace) (Do Not Crush) Glucagon 1 mg, Route: No Longer The IM, Drug form: Active 2015 [facility] PDR/INJ, PRN, Dosing Weight 96.023, kg, PRN Blood Glucose Results, Start date: 02/08/16 20:04:00 CDT, Duration: 30 day, Stop date: 03/09/16 20:03:00 CDT Acetaminophen 325 2 tab, Route: No Longer The MG / Hydrocodone PO, Drug Form: Active 2015 [facility] Bitartrate 5 MG TAB, Dosing Oral Tablet Weight 96.023, kg, Q4H, PRN Pain Score 4-6, Start date: 02/08/16 20:04:00 CDT, Duration: 30 day, Stop date: 03/09/16 20:03:00 CDTNotes: (Same as: [place] 325/5) Do not exceed 4gm/day of acetaminophen. Acetaminophen 650 mg, 2 tab, No Longer The Route: PO, Active 2015 [facility] Drug form: TAB, Q4H, Dosing Weight 96.023, kg, PRN Pain 1-3/Temp > 100.4 F, Start date: 02/08/16 20:04:00 CDT, Duration: 30 day, Stop date: 03/09/16 20:03:00 CDTNotes: Do not exceed 4 gm/day. (Same as: Tylenol) D5W /2NS + KCL 1,000 mL, No Longer The 20mEq/L 1000ml Rate: 50 Active 2015 [facility] (Premix) 1,000 mL ml/hr, Infuse over: 20 hr, Route: IV, Dosing Weight 96.023 kg, Total Volume: 1,000, Start date: 02/08/16 20:04:00 CDT, Duration: 30 day, Stop date: 03/09/16 20:03:00 CDTNotes: PREMIX IV - Do Not Alter WASTE: F/P - Sink; E - Municipal Trash Bin Ondansetron 4 mg, 2 mL, Inactive The Route: IVP2015 [facility] Drug form: INJ, ONCE, Dosing Weight 96.023, kg, PRN Nausea & Vomiting, Start date: 02/08/16 9:59:00 CDTNotes: (Same as: Zofran) MEDICATION WASTE Product Size: 4 mg Product Wasted: ___ mg Promethazine 6.25 mg, 25 Inactive The mL, Route: 2015 [facility] IVPB, Drug form: SOLN, ONCE, Dosing Weight 96.023, kg, PRN Nausea & Vomiting, Start date: 02/08/16 9:59:00 CDT Flumazenil 0.2 mg, 2 mL, Inactive The Route: IVP, 2015 [facility] Drug form: INJ, PRN, Dosing Weight 96.023, kg, PRN Benzodiazepine Reversal, Initial dose, Start date: 02/08/16 9:59:00 CDT, Duration: 30 day, Stop date: 03/09/16 9:58:00 CDTNotes: (Same as: Romazicon) Naloxone 0.4 mg, 1 mL, Inactive The Route: IVP, 2015 [facility] Drug form: INJ, Q2MIN, Dosing Weight 96.023, kg, PRN Narcotic Reversal, Start date: 02/08/16 9:59:00 CDT, Duration: 8 doses or times, Stop date: Limited # of timesNotes: Same as Narcan Fentanyl 50 microgram, Inactive The 1 mL, Route: 2015 [facility] IVP, Drug form: INJ, Q5Min, Dosing Weight 96.023, kg, PRN Pain Score 7-10, Start date: 02/08/16 9:59:00 CDT, Duration: 2 doses or times, Stop date: Limited # of timesNotes: (Same as: Sublimaze) Preservative free. Hydromorphone 1 mg, 1 mL, Inactive The Route: IVP, 2015 [facility] Drug form: INJ, Q5Min, Dosing Weight 96.023, kg, PRN Pain Score 7-10, Start date: 02/08/16 9:59:00 CDT, Duration: 4 doses or times, Stop date: Limited # of timesNotes: Same as: Dilaudid Labetalol 10 mg, 2 mL, Inactive The Route: IVP, 2015 [facility] Drug form: INJ, Q5Min, Dosing Weight 96.023, kg, PRN Elevated BP, Start date: 02/08/16 9:59:00 CDT, Duration: 5 doses or times, Stop date: Limited # of times ondansetron (ANES) Route: IV, Inactive The Drug form: 2015 [facility] INJ, ONCE, Stop date: 02/08/16 9:40:00 CDT hydromorphone Route: IV, Inactive The (ANES) Drug form: 2015 [facility] INJ, ONCE, Stop date: 02/08/16 9:15:00 CDT LR 1000 mL INJ Route: IV, Inactive The (ANES) Total Volume: 2015 [facility] 1,000, Start date: 02/08/16 9:08:00 CDT, Stop date: 02/08/16 10:08:00 CDT heparin (ANES) Route: IV, Inactive The Drug form: 2015 [facility] INJ, ONCE, Stop date: 02/08/16 8:55:00 CDT fentaNYL (ANES) Route: IV, Inactive The Drug form: 2015 [facility] INJ, ONCE, Stop date: 02/08/16 8:40:00 CDT propofol (ANES) Route: IV, Inactive The Drug form: 2015 [facility] INJ, ONCE, Stop date: 02/08/16 8:40:00 CDT lidocaine (ANES) Route: IV, Inactive The Drug form: 2015 [facility] INJ, ONCE, Stop date: 02/08/16 8:40:00 CDT midazolam (ANES) Route: IV, Inactive The Drug form: 2015 [facility] SOLN, ONCE, Stop date: 02/08/16 8:40:00 CDT rocuronium (ANES) Route: IV, Inactive The Drug form: 2015 [facility] INJ, ONCE, Stop date: 02/08/16 8:40:00 CDT piperacillin-tazob IV, ONCE Inactive The actam (ANES) [place] famotidine (ANES) Route: IV, Inactive The Drug form: 2015 [facility] INJ, ONCE, Stop date: 02/08/16 8:25:00 CDT [...] No Longer The Route: PO, Active 2015 [facility] Drug form: TAB, Q4H, PRN Pain 1-3/Temp > 100.4 F, Start date: 02/07/16 10:35:00 CDT, Duration: 30 day, Stop date: 03/08/16 10:34:00 CDTNotes: (Same as: Roxicodone) oxyCODONE 10 mg 15 mg, Route: Inactive The extended release PO, Drug form: 2015 [facility] ERTAB, Q6H, Start date: 02/05/16 18:00:00 CDT, Duration: 30 day, Stop date: 03/06/16 12:00:00 CDT Roxicodone 15 mg, 3 tab, No Longer The Route: PO, Active 2015 [facility] Drug form: TAB, Q6Hnow, Start date: 02/05/16 15:21:00 CDT, Stop date: 03/06/16 11:00:00 CDTNotes: (Same as: Roxicodone) Dilaudid 2 mg, 1 mL, No Longer The Route: IV, Active 2015 [facility] Drug form: INJ, Q2H, Dosing Weight 97.273, kg, PRN Pain Score 7-10, Start date: 02/05/16 15:04:00 CDT, Duration: 30 day, Stop date: 03/06/16 15:03:00 CDTNotes: Same as: Dilaudid sodium chloride 1,000 mL, No Longer The 0.9% 1000 ml INJ Rate: 50 Active 2015 [facility] 1,000 mL ml/hr, Infuse over: 20 hr, Route: IV, Dosing Weight 97.273 kg, Total Volume: 1,000, Start date: 02/04/16 11:14:00 CDT, Stop date: 03/05/16 11:13:00 CDT vancomycin 750 mg, 150 No Longer The mL, Route: Active 2015 [facility] IVPB, Drug form: INJ, [id number], Start date: 02/02/16 15:00:00 CDT, Duration: 30 day, Stop date: 03/03/16 3:00:00 CDTNotes: TIME CRITICAL MEDICATION Same as: Vancocin Infusion rate 2000 mg: infuse over 2.5 hours atorvastatin 40 mg, 1 tab, No Longer The Route: PO, Active 2015 [facility] Drug form: TAB, Bedtime, Dosing Weight 97.273, kg, Start date: 02/01/16 21:00:00 CDT, Duration: 30 day, Stop date: 03/01/16 21:00:00 CDTNotes: (Same as: Lipitor) Vancomycin 1 ea, Route: Inactive The [facility] [place] Dosing 2015 [facility] Weight 97.273, kg, ONCALL, Start date: 02/01/16 15:00:00 CDT, Duration: 1 doses or times, Pharmacy to dose Acetaminophen 325 1 tab, Route: No Longer The MG / Hydrocodone PO, Drug Form: Active 2015 [facility] Bitartrate 10 MG TAB, Dosing Oral Tablet [[place] Weight 97.273, 10/325] kg, Q6H, PRN Pain Score 4-6, Start date: 02/01/16 13:10:00 CDT, Duration: 30 day, Stop date: 03/02/16 13:09:00 CDTNotes: Do not exceed 4gm/day of acetaminophen. (Same as: [place] 325/10) Tylenol 650 mg, 2 tab, No Longer The Route: PO, Active 2015 [facility] Drug form: TAB, Q6H, Dosing Weight 97.273, kg, PRN Pain Score 1-3, Start date: 02/01/16 13:02:00 CDT, Duration: 30 day, Stop date: 03/02/16 13:01:00 CDTNotes: Do not exceed 4 gm/day. (Same as: Tylenol) Vancomycin 1,000 mg, No Longer The Route: IVPB, Active 2015 [facility] [id number], Dosing Weight 97.273, kg, Start date: 02/01/16 13:00:00 CDT, Stop date: 03/02/16 1:00:00 CDTNotes: TIME CRITICAL MEDICATION (Same As: Vancocin) Infusion rate 2001 mg: infuse over 2.5 hours MEDICATION WASTE Product Size: 1000 mg Product Wasted: ___ mg Zosyn 3.375 gm, No Longer The Route: IVPB, Active 2015 [facility] [id number], Dosing Weight 97.273, kg, CrCl Notes: [...] Tartrate 100 MG Route: PO, Active 2015 [facility] Extended Release Drug form: Tablet [Toprol] ERTAB, Daily, Start date: 02/01/16 9:00:00 CDT, Duration: 30 day, Stop date: 03/01/16 9:00:00 CDTNotes: (Same as: Toprol XL) May split tab, but do not crush. Alprazolam 2 MG 2 mg, 2 tab, No Longer The Oral Tablet Route: PO, Active 2015 [facility] Drug form: TAB, BID, Dosing Weight 97.273, kg, PRN Anxiety, Start date: 02/01/16 8:23:00 CDT, Duration: 30 day, Stop date: 03/02/16 8:22:00 CDTNotes: With food or milk (Same as: Xanax) Albuterol 0.833 3 ml, Route: No Longer The MG/ML / NEB, Drug Active 2015 [facility] Ipratropium Form: SOLN, [place] 0.167 Dosing Weight MG/ML Inhalant 97.273, kg, Solution PRN, PRN Respiratory Protocol, Start date: 02/01/16 8:22:00 CDT, Duration: 30 day, Stop date: 03/02/16 8:21:00 CDTNotes: (Same as: Duoneb) Zofran 4 mg, 2 mL, No Longer The Route: IVP, Active 2015 [facility] Drug form: INJ, Q6H, Dosing Weight 97.273, kg, PRN Nausea, Start date: 02/01/16 1:24:00 CDT, Duration: 30 day, Stop date: 03/02/16 1:23:00 CDTNotes: (Same as: Zofran) MEDICATION WASTE Product Size: 4 mg Product Wasted: ___ mg Dilaudid 2 mg, 2 mL, No Longer The Route: IVP, Active 2015 [facility] Drug form: INJ, Q4H, Dosing Weight 97.273, kg, PRN Pain Score 7-10, Start date: 02/01/16 1:23:00 CDT, Duration: 30 day, Stop date: 03/02/16 1:22:00 CDTNotes: Same as: Dilaudid Acetaminophen 300 1 tab, PO, No Longer The MG / Codeine BID, PRN pain, Active 2015 [facility] Phosphate 30 MG # 28 tab, 0 Oral Tablet Refill(s) lisinopril 10 mg 10 mg=1 tab, Active The oral tablet PO, Daily, # 2015 [facility] 30 tab, 0 Refill(s) metoprolol 100 mg=1 tab, Active The tartrate 100 mg PO, BID, # 60 2015 [facility] oral tablet tab, 0 Refill(s) Centrum Adults 1 tab, PO, Active The oral tablet Daily, 0 2015 [facility] Refill(s) doxazosin 1 mg 1 mg=1 tab, Active The oral tablet PO, Daily, # 2015 [facility] 30 tab, 0 Refill(s) atorvastatin 40 mg 40 mg=1 tab, Active The oral tablet PO, Bedtime, # 2015 [facility] 30 tab, 0 Refill(s) Anoro Ellipta 62.5 1 puff, Active The mcg-25 mcg INHALER, 2015 [facility] inhalation powder Daily, # 1 ea, 3 Refill(s) Alprazolam 2 MG 2 mg=1 tab, Active The Oral Tablet PO, BID, PRN 2015 [facility] Anxiety, # 20 tab, 0 Refill(s) Furosemide 20 MG 20 mg=1 tab, Active The Oral Tablet PO, Daily, # 2015 [facility] 30 tab, 0 Refill(s) cilostazol 100 mg 100 mg=1 tab, Active The oral tablet PO, BID, # 60 2015 [facility] tab, 0 Refill(s) Acetaminophen 650 mg, Route: Inactive The PO, Drug form: 2015 [facility] TAB, ONCE, Dosing Weight 95, kg, Priority: STAT, Start date: 01/31/16 22:28:00 CDT, Stop date: 01/31/16 22:28:00 CDT Piperacillin / 3.375 gm, Inactive The tazobactam Route: IVPB, 2015 [facility] ONCE, Dosing Weight 95, kg, Priority: STAT, Start date: 01/31/16 17:57:00 CDT, Stop date: 01/31/16 17:57:00 CDTNotes: (Same as: Zosyn) Dosing based on Piperacillin component MEDICATION WASTE Product Size: 3375 mg Product Wasted: ___ mg Vancomycin 1,000 mg, Inactive The Route: IVPB, 2015 [facility] ONCE, Dosing Weight 95, kg, Priority: STAT, Start date: 01/31/16 17:57:00 CDT, Stop date: 01/31/16 17:57:00 CDT, TIME CRITICAL MEDICATIONNote s: TIME CRITICAL MEDICATION (Same As: Vancocin) Infusion rate 2001 mg: infuse over 2.5 hours MEDICATION WASTE Product Size: 1000 mg Product Wasted: ___ mg Sodium Chloride 1,000 mL, Inactive The 0.154 MEQ/ML 2,000 ml/hr, 2015 [facility] Injectable Infuse Over: Solution 30 minutes, Route: IV, 1,000, Drug form: INJ, ONCE, Priority: STAT, Dosing Weight 95 kg, Start date: 01/31/16 17:04:00 CDT, Duration: 1 doses or times, Stop date: 01/31/16 17:04:00 CDT Acetaminophen 325 1 tab, Route: Inactive The MG / Hydrocodone PO, Drug Form: 2015 [facility] Bitartrate 10 MG TAB, Dosing Oral Tablet [[place] Weight 95, kg, 10/325] ONCE, STAT, Start date: 01/31/16 16:57:00 CDT, Stop date: 01/31/16 16:57:00 CDTNotes: Do not exceed 4gm/day of acetaminophen. (Same as: [place] 325/10) Amlodipine 10 mg, PO, Active The Daily, 0 2015 [facility] Refill(s) gabapentin 300 mg, PO, Active The BID, 0 2015 [facility] Refill(s) atorvastatin 20 mg, 1 tab, Inactive The Route: PO, 2014 [facility] Drug form: TAB, Bedtime, Dosing Weight 98.267, kg, Start date: 02/16/15 21:00:00, Duration: 30 day, Stop date: 03/17/15 21:00:00Notes: (Same As: Lipitor) lovastatin 20 mg 20 mg=1 tab, Active The oral tablet PO, Bedtime, # [facility] 30 tab, 0 Refill(s), given to patient Hydrochlorothiazid 1 tab, Route: No Longer The e 12.5 MG / PO, Drug Form: Active 2014 [facility] Lisinopril 20 MG TAB, Dosing Oral Tablet Weight 98.267, kg, Daily, Start date: 02/16/15 9:00:00, Duration: 30 day, Stop date: 03/17/15 9:00:00 Prinivil 20 mg, 1 tab, Inactive The Route: PO, 2014 [facility] Drug form: TAB, Daily, Start date: 02/16/15 9:00:00, Duration: 30 day, Stop date: 03/17/15 9:00:00Notes: (Same as: Prinivil, Zestril) metoprolol 25 mg, 1 tab, Inactive The tartrate Route: PO, 2014 [facility] Drug form: TAB, Q12H, Dosing Weight 98.267, kg, Start date: 02/16/15 9:00:00, Duration: 30 day, Stop date: 03/17/15 21:00:00Notes: (Same as: Lopressor) Microzide 12.5 mg, 1 Inactive The tab, Route: 2014 [facility] PO, Drug form: TAB, Daily, Start date: 02/16/15 9:00:00, Duration: 30 day, Stop date: 03/17/15 9:00:00Notes: (Same as: Hydrodiuril). Give with food. pneumococcal 0.5 mL, Route: Inactive The capsular IM, Drug Form: 2014 [facility] polysaccharide INJ, Daily, type 1 vaccine / [...] The Oral Tablet tab, Route: Active 2014 [facility] [Xanax] PO, Drug form: TAB, BID, Dosing Weight 98.267, kg, PRN Anxiety, Start date: 02/15/15 23:39:00, Duration: 30 day, Stop date: 03/17/15 23:38:00Notes: With food or milk (Same as: Xanax) Acetaminophen 325 1 tab, Route: No Longer The MG / Hydrocodone PO, Drug Form: Active 2014 [facility] Bitartrate 5 MG TAB, Dosing Oral Tablet [[place] Weight 98.267, 5/325] kg, Q12H, PRN Pain 1-3/Temp > 100.4 F, Start date: 02/15/15 23:39:00, Duration: 30 day, Stop date: 03/17/15 23:38:00Notes: (Same as: [place] 325/5) Do not exceed 4gm/day of acetaminophen. Tessalon Perles 200 mg, 2 cap, No Longer The Route: PO, Active 2014 [facility] Drug form: CAP, TID, Dosing Weight 13.636, kg, Start date: 02/15/15 20:00:00, Duration: 30 day, Stop date: 03/17/15 17:00:00Notes: (Same As: Tessalon Perles) "Do Not Crush" Acetaminophen 325 1 tab, PO, Active The MG / Hydrocodone Q12H, PRN 2014 [facility] Bitartrate 5 MG Pain, # 30 Oral Tablet [[place] tab, 0 5/325] Refill(s) Alprazolam 0.25 MG 0.25 mg=1 tab, Active The Oral Tablet PO, BID, PRN 2014 [facility] [Xanax] Anxiety, Stress, # 20 tab, 0 Refill(s) metoprolol 25 mg, PO, Active The tartrate BID, 0 2014 [facility] Refill(s) NS 1,000 mL 1,000 mL, No Longer The Rate: 75 Active 2014 [facility] ml/hr, Infuse over: 13.3 hr, Route: IV, Dosing Weight 13.636 kg, Total Volume: 1,000, Start date: 02/15/15 18:04:00, Duration: 30 day, Stop date: 03/17/15 18:03:00 Xopenex 0.63 mg, 3 mL, No Longer The Route: NEB, Active 2014 [facility] Drug form: SOLN, PRN, Dosing Weight 13.636, kg, PRN Respiratory Protocol, Start date: 02/15/15 18:03:00, Duration: 30 day, Stop date: 03/17/15 18:02:00Notes: SEE RT DOCUMENTATION (Same as:Xopenex) Non-Formulary Acetaminophen 325 2 tab, Route: No Longer The MG / Hydrocodone PO, Drug Form: Active 2014 [facility] Bitartrate 10 MG TAB, Dosing Oral Tablet [[place] Weight 13.636, 10/325] kg, Q4H, PRN Pain Score 4-6, Start date: 02/15/15 18:03:00, Duration: 30 day, Stop date: 03/17/15 18:02:00Notes: Do not exceed 4gm/day of acetaminophen. (Same as: [place] 325/10) Albuterol 0.833 3 ml, Route: No Longer The MG/ML / NEB, Drug Active 2014 [facility] Ipratropium Form: SOLN, [place] 0.167 Dosing Weight MG/ML Inhalant 13.636, kg, Solution [DuoNeb] PRN, PRN Respiratory Protocol, Start date: 02/15/15 15:51:00, Duration: 30 day, Stop date: 03/17/15 15:50:00Notes: (Same as: Duoneb) Aspirin 324 mg, 4 tab, Inactive The Route: CHEW, 2014 [facility] Drug form: CHEWTAB, ONCE, Dosing Weight 13.636, kg, Priority: STAT, Start date: 02/15/15 15:00:00, Stop date: 02/15/15 15:00:00Notes: Take with food. tramadol 100 mg=2 tab, Active The hydrochloride 50 PO, Q6H, PRN 2014 [facility] MG Oral Tablet pain, X 3 day, [Ultram] # 20 tab, 0 Refill(s) Tylenol 650 mg, 2 tab, Inactive The Route: PO, 2014 [facility] Drug form: TAB, ONCE, Dosing Weight 108.182, kg, Pediatric Dosing, Priority: STAT, Start date: 02/09/15 15:47:00, Stop date: 02/09/15 15:47:00Notes: Do not exceed 4 gm/day. (Same as: Tylenol) Sodium Chloride 1,000 mL, Inactive The 0.154 MEQ/ML 1,000 ml/hr, 2014 [facility] Injectable Infuse Over: 1 Solution hr, Route: IV, 1,000, Drug form: INJ, ONCE, Priority: STAT, Dosing Weight 104.545 kg, Start date: 01/23/15 14:39:00, Duration: 1 doses or times, Stop date: 01/23/15 14:39:00 Saline Flush 0.9% 10 mL, Route: Inactive The IVP, Drug 2014 [facility] Form: INJ, Dosing Weight 104.545, kg, PRN, PRN Line Flush, Start date: 01/23/15 14:39:00, Duration: 30 day, Stop date: 02/22/15 14:38:00Notes: preservative free. Allergies, Adverse Reactions, Alerts Substance Category Reaction Severity Reaction Status Date Comments Source type Reported morphine Assertion Drug Active The allergy [facility] Immunizations Immunization Date Site Status Last Updated Comments Source Given pneumococcal Right completed Ashok The 23-valent 5 deltoid [facility] vaccine Results Order Name Results Value Reference Date Interpretation Comments Source Range BLOOD BANK RBC product Product available 04/04 The RESULTS (04/04/16 11:22 AM) /2015 [facility] BLOOD BANK ABO/Rh B POS 04/04 The RESULTS /2015 [facility] BLOOD BANK Antibody Negative 04/04 The RESULTS Scrn (04/04/16 11:20 AM) [facility] URINE AND UA <=1.0 0.1 - 1.0 03/14 The STOOL Urobilinogen mg/dL /2015 [facility] URINE AND UA RBC 1 0 - 2 03/14 The STOOL /2015 [facility] URINE AND UA WBC 3 0 - 5 03/14 The STOOL /2015 [facility] URINE AND UA Sq Epi Few /LPF Few /LPF 03/14 The STOOL /2015 [facility] URINE AND UA Mucus Few /LPF None Seen 03/14 The STOOL /LPF /2015 [facility] URINE AND UA Leuk Est Negative Negative 03/14 The STOOL (03/14/16 2:08 AM) /2015 [facility] URINE AND UA Protein Negative Negative 03/14 The STOOL mg/dL mg/dL /2015 [facility] URINE AND UA pH 5.0 5.0 - 8.0 03/14 The STOOL /2015 [facility] URINE AND UA Spec Grav 1.009 <=1.030 03/14 The STOOL /2015 [facility] URINE AND UA Turbidity Clear Clear 03/14 The STOOL (03/14/16 2:08 AM) /2015 [facility] URINE AND UA Ketones Negative Negative 03/14 The STOOL mg/dL mg/dL /2015 [facility] URINE AND UA Glucose Negative Negative 03/14 The STOOL mg/dL mg/dL /2015 [facility] URINE AND UA Color Yellow Yellow 03/14 The STOOL *NA* /2015 [facility] (03/14/16 2:08 AM) URINE AND UA Nitrite Negative Negative 03/14 The STOOL (03/14/16 2:08 AM) /2015 [facility] URINE AND UA Blood Negative Negative 03/14 The STOOL (03/14/16 2:08 AM) /2015 [facility] URINE AND UA Bili Negative Negative 03/14 The STOOL *NA* /2015 [facility] (03/14/16 2:08 AM) CHEM PANEL Lactic Acid 0.8 0.5 - 2.2 03/14 The Lvl /2015 [facility] CHEM PANEL Procalcitoni <0.05 0.00 - 03/14 The n Lvl ng/mL 0. [facility] BLOOD BANK Antibody Negative 03/14 The RESULTS Scrn (03/13/16 9:07 PM) /2015 [facility] BLOOD BANK ABO/Rh B POS 03/14 The RESULTS [facility] CHEM PANEL eGFR 43 03/14 Result MH Comment: [place] eGFR is calculated using the CKD-EPI formula. [...] 21 7 - 22 10 MH The [facility] CHEM PANEL Creatinine 1.79 0.50 - 10 MH The Lvl 1.40 [facility] CHEM PANEL Alk Phos 95 39 - 136 10 MH The [facility] CHEM PANEL Bili Total 0.3 0.2 - 1.3 03/14 MH The [facility] CHEM PANEL AST 39 0 - 37 10 MH The [facility] CHEM PANEL ALT 59 0 - 65 10 MH The [facility] CHEM PANEL Sodium Lvl 139 135 - 145 10 MH The [facility] CHEM PANEL Total 7.8 6.4 - 8.4 10 MH The Protein [facility] CHEM PANEL Albumin Lvl 2.5 3.5 - 5.0 10 MH The [facility] CHEM PANEL Glucose Lvl 120 70 - 99 10 MH The [facility] CHEM PANEL Chloride Lvl 106 95 - 109 10/ MH The [facility] CHEM PANEL CO2 21 24 - 32 10/18 MH The [facility] CHEM PANEL Calcium Lvl 10.1 8.5 - 10.5 10/18 MH The [facility] CHEM PANEL Potassium 3.3 3.5 - 5.1 10/18 MH The Lvl [facility] CHEM PANEL A/G Ratio 0.5 0.7 - 1.6 10/18 MH The [facility] CHEM PANEL Globulin 5.3 2.7 - 4.2 10/18 MH The [employer] CHEM PANEL B/C Ratio 12 6 - 25 10 MH The [facility] CHEM PANEL AGAP 15.3 10.0 - 03/14 MH The 20.0 [facility] HEMATOLOGY MPV 7.4 7.4 - 10.4 10 MH The [facility] HEMATOLOGY WBC 7.3 3.7 - 10.4 10 MH The [facility] HEMATOLOGY MCV 88.5 80.0 - 03/14 MH The 94.0 [facility] HEMATOLOGY RBC 3.00 4.70 - 03/14 MH The 6.10 [facility] HEMATOLOGY Hct 26.5 42.0 - 10 MH The 54.0 [facility] HEMATOLOGY Hgb 8.8 14.0 - 03/14 MH The 18.0 [facility] HEMATOLOGY MCHC 33.1 32.0 - 03/14 MH The 36.0 [facility] HEMATOLOGY MCH 29.3 27.0 - 03/14 MH The 31.0 [facility] HEMATOLOGY Platelet 241 133 - 450 03/14 MH The [facility] HEMATOLOGY RDW 15.5 11.5 - 03/14 MH The 14.5 [facility] HEMATOLOGY Basophils # 0.1 0.0 - 0.2 10 MH The [facility] HEMATOLOGY Lymphocytes 14.3 20.0 - 03/14 MH The 40.0 [facility] HEMATOLOGY Eosinophils 1.9 0.0 - 4.0 10 MH The [facility] HEMATOLOGY Segs 77.1 45.0 - 03/14 MH The 75.0 [facility] HEMATOLOGY Monocytes 5.3 2.0 - 12.0 03/14 MH The [facility] HEMATOLOGY Basophils 1.4 0.0 - 1.0 10 MH The [facility] HEMATOLOGY Segs-Bands # 5.6 1.5 - 8.1 10 MH The [facility] HEMATOLOGY Lymphocytes 1.0 1.0 - 5.5 10 MH The # [facility] HEMATOLOGY Monocytes # 0.4 0.0 - 0.8 03/14 MH The [facility] HEMATOLOGY Eosinophils 0.1 0.0 - 0.5 03/14 MH The # [facility] ANEMIA UIBC 174 110 - 370 02/15 MH The STUDY /2015 [facility] ANEMIA TIBC 196 228 - 428 02/15 MH The STUDY /2015 [facility] ANEMIA Iron 22 45 - 160 02/15 The [facility] ANEMIA % Satur Fe 11 12 - 57 02/15 The [facility] CHEM PANEL eGFR 57 02/14 Result The Comment: [place] eGFR is calculated using the CKD-EPI formula. [...] AGAP 14.7 10.0 - 02/14 The .0 [facility] CHEM PANEL Calcium Lvl 8.7 8.5 - 10.5 02/14 The [facility] CHEM PANEL CO2 24 24 - 32 02/14 The [facility] CHEM PANEL Chloride Lvl 99 95 - 109 02/14 MH The [facility] CHEM PANEL Potassium 3.7 3.5 - 5.1 02/14 The [facility] CHEM PANEL BUN 16 7 - 22 02/14 The [facility] CHEM PANEL Glucose Lvl 128 70 - 99 02/14 The [facility] CHEM PANEL Sodium Lvl 134 135 - 145 02/14 The [facility] CHEM PANEL Creatinine 1.42 0.50 - 02/14 MH The Lvl 1.40 [facility] CHEM PANEL eGFR 51 02/13 Result Comment: [place] eGFR is calculated using the CKD-EPI formula. [...] 0.2 - 1.3 02/13 Result The Comment: [facility] reviewed all results 02/14/2016 06:35 [facility] CHEM PANEL ALT 25 0 - 65 02/13 The [employer] CHEM PANEL AST 15 0 - 37 02/13 The [employer] CHEM PANEL Alk Phos 62 39 - 136 02/13 The [employer] CHEM PANEL Globulin 4.8 2.7 - 4.2 02/13 The [employer] CHEM PANEL A/G Ratio 0.5 0.7 - 1.6 02/13 The [employer] CHEM PANEL Calcium Lvl 9.0 8.5 - 10.5 02/13 The [employer] CHEM PANEL Glucose Lvl 109 70 - 99 02/13 The [employer] CHEM PANEL CO2 24 24 - 32 02/13 The [employer] CHEM PANEL Chloride Lvl 101 95 - 109 02/13 The [facility] CHEM PANEL BUN 17 7 - 22 02/13 The [facility] CHEM PANEL Potassium 4.1 3.5 - 5.1 02/13 The Lvl [employer] CHEM PANEL AGAP 14.1 10.0 - 02/13 The 20.0 [employer] CHEM PANEL Albumin Lvl 2.3 3.5 - 5.0 02/13 The [employer] CHEM PANEL Total 7.1 6.4 - 8.4 02/13 The Protein [employer] CHEM PANEL Creatinine 1.55 0.50 - 02/13 The Lvl 1.40 [employer] CHEM PANEL Sodium Lvl 135 135 - 145 02/13 The [employer] CHEM PANEL B/C Ratio 11 6 - 25 02/13 The /2015 [facility] HEMATOLOGY MPV 7.7 7.4 - 10.4 09 The /2015 [facility] HEMATOLOGY Hct 25.4 42.0 - 02/13 MH The 54.0 /2015 [facility] HEMATOLOGY MCH 32.7 27.0 - 02/13 MH The 31.0 [facility] HEMATOLOGY MCV 96.6 80.0 - 02/13 MH The 94.0 [facility] HEMATOLOGY Platelet 296 133 - 450 02/13 The [facility] HEMATOLOGY RDW 14.7 11.5 - 02/13 The 14.5 [facility] HEMATOLOGY MCHC 33.8 32.0 - 02/13 MH The 36.0 [facility] HEMATOLOGY WBC 8.4 3.7 - 10.4 02/13 The [facility] HEMATOLOGY Hgb 8.6 14.0 - 02/13 MH The 18.0 [facility] HEMATOLOGY RBC 2.63 4.70 - 02/13 MH The 6.10 [facility] HEMATOLOGY Lymphocytes 1.5 1.0 - 5.5 02/13 MH The # [facility] HEMATOLOGY Eosinophils 0.2 0.0 - 0.5 02/13 MH The # [facility] HEMATOLOGY Monocytes # 0.8 0.0 - 0.8 02/13 MH The [facility] HEMATOLOGY Basophils # 0.1 0.0 - 0.2 02/13 MH The [facility] HEMATOLOGY Monocytes 9.9 2.0 - 12.0 02/13 MH The [facility] HEMATOLOGY Lymphocytes 17.2 20.0 - 02/13 MH The 40.0 [facility] HEMATOLOGY Segs 69.8 45.0 - 02/13 MH The 75.0 [facility] HEMATOLOGY Eosinophils 2.2 0.0 - 4.0 02/13 MH The [facility] HEMATOLOGY Segs-Bands # 5.9 1.5 - 8.1 02/13 MH The [facility] HEMATOLOGY Basophils 0.9 0.0 - 1.0 02/13 MH The [facility] TOXICOLOGY Vanco Tr 14.8 02/13 MH The [facility] TOXICOLOGY Vanco Tr TND TBD 02/13 MH The [facility] CHEM PANEL Total 6.3 6.4 - 8.4 02/12 MH The Protein [facility] CHEM PANEL A/G Ratio 0.7 0.7 - 1.6 09/18 MH The [facility] CHEM PANEL B/C Ratio 12 6 - 25 09/18 MH The [facility] CHEM PANEL Globulin 3.8 2.7 - 4.2 09/18 MH The [facility] CHEM PANEL AST 12 0 - 37 /18 MH The [facility] CHEM PANEL Alk Phos 61 39 - 136 /18 MH The [facility] CHEM PANEL Albumin Lvl 2.5 3.5 - 5.0 09/18 MH The [facility] CHEM PANEL ALT 26 0 - 65 09/18 MH The [facility] CHEM PANEL Bili Total 0.4 0.2 - 1.3 09/18 MH The [facility] CHEM PANEL AGAP 13.5 10.0 - 0918 MH The 20.0 [facility] CHEM PANEL eGFR 57 /18 Result MH The Comment: [place] eGFR is calculated using the CKD-EPI formula. [...] 27 24 - 32 09/18 MH The [facility] CHEM PANEL Calcium Lvl 8.7 8.5 - 10.5 /18 MH The [facility] CHEM PANEL Chloride Lvl 100 95 - 109 /18 MH The [facility] CHEM PANEL Potassium 4.5 3.5 - 5.1 18 MH The Lvl /2015 [facility] CHEM PANEL Creatinine 1.42 0.50 - 0918 MH The Lvl 1.40 /2015 [facility] CHEM PANEL Sodium Lvl 136 135 - 145 09/18 MH The [facility] CHEM PANEL Glucose Lvl 105 70 - 99 02/12 The [facility] CHEM PANEL BUN 17 7 - 22 02/12 The [facility] TOXICOLOGY Vanco Tr TND TBD 02/12 The [facility] TOXICOLOGY Vanco Tr 9.3 02/12 The [facility] CHEM PANEL Phosphorus 4.9 2.5 - 4.5 02/11 The [facility] CHEM PANEL Magnesium 1.8 1.8 - 2.4 02/11 The Lvl /2015 [facility] HEMATOLOGY Segs 70.5 45.0 - 02/11 The 75.0 [facility] HEMATOLOGY Lymphocytes 18.0 20.0 - 02/11 The 40.0 [facility] HEMATOLOGY Monocytes 9.7 2.0 - 12.0 02/11 The [facility] HEMATOLOGY Segs-Bands # 6.4 1.5 - 8.1 02/11 The [facility] HEMATOLOGY Lymphocytes 1.6 1.0 - 5.5 02/11 The # [facility] HEMATOLOGY Basophils 0.5 0.0 - 1.0 02/11 The [facility] HEMATOLOGY Eosinophils 1.3 0.0 - 4.0 02/11 The [facility] HEMATOLOGY Monocytes # 0.9 0.0 - 0.8 02/11 The [facility] HEMATOLOGY Eosinophils 0.1 0.0 - 0.5 02/11 The # [facility] HEMATOLOGY Platelet 307 133 - 450 02/11 The [facility] HEMATOLOGY MPV 6.9 7.4 - 10.4 02/11 The [facility] HEMATOLOGY MCHC 33.9 32.0 - 02/11 The 36.0 [facility] HEMATOLOGY RDW 15.1 11.5 - 02/11 The 14.5 /2015 [facility] HEMATOLOGY RBC 2.69 4.70 - 02/11 The 6.10 [facility] HEMATOLOGY MCV 96.5 80.0 - 02/11 The 94.0 [facility] HEMATOLOGY WBC 9.1 3.7 - 10.4 02/11 The [facility] HEMATOLOGY Hgb 8.8 14.0 - 02/11 The 18.0 [facility] HEMATOLOGY Hct 26.0 42.0 - 02/11 The 54.0 /2015 [facility] HEMATOLOGY MCH 32.7 27.0 - 02/11 The 31.0 [facility] HEMATOLOGY Segs-Bands # 7.7 1.5 - 8.1 02/11 The [facility] HEMATOLOGY Basophils 1.5 0.0 - 1.0 09 The [facility] HEMATOLOGY Basophils # 0.2 0.0 - 0.2 02/11 The [facility] HEMATOLOGY Eosinophils 0.2 0.0 - 0.5 02/11 The # [facility] HEMATOLOGY Monocytes # 1.2 0.0 - 0.8 02/11 The [facility] HEMATOLOGY Segs 69.4 45.0 - 02/11 The 75.0 [facility] HEMATOLOGY Monocytes 10.5 2.0 - 12.0 02/11 The [facility] HEMATOLOGY Eosinophils 1.6 0.0 - 4.0 02/11 The [facility] HEMATOLOGY Lymphocytes 1.9 1.0 - 5.5 02/11 The # [facility] HEMATOLOGY Lymphocytes 17.0 20.0 - 02/11 The 40.0 [facility] HEMATOLOGY Hct 28.9 42.0 - 02/11 The 54.0 [facility] HEMATOLOGY MCHC 33.6 32.0 - 02/11 The 36.0 [facility] HEMATOLOGY RDW 14.6 11.5 - 02/11 The 14.5 [facility] HEMATOLOGY MCV 96.6 80.0 - 02/11 The 94.0 /2015 [facility] HEMATOLOGY MCH 32.4 27.0 - 02/11 The 31.0 [facility] HEMATOLOGY Hgb 9.7 14.0 - 02/11 The 18.0 [facility] HEMATOLOGY WBC 11.1 3.7 - 10.4 02/11 The /2015 [facility] HEMATOLOGY RBC 2.99 4.70 - 02/11 The 6.10 [facility] HEMATOLOGY Platelet 360 133 - 450 02/11 The [facility] HEMATOLOGY MPV 7.4 7.4 - 10.4 02/11 The [facility] TOXICOLOGY Vanco Tr 10.9 02/10 The [facility] TOXICOLOGY Vanco Tr TND TBD 02/10 The [facility] HEMATOLOGY Basophils # 0.1 0.0 - 0.2 02/09 [facility] TOXICOLOGY Vanco Lvl 14.1 02/09 The [facility] HEMATOLOGY Sed Rate >100 0 - 15 02/08 The [facility] BLOOD BANK Antibody Negative 02/07 The RESULTS Scrn (02/08/16 5:38 AM) [facility] BLOOD BANK ABO/Rh B POS 02/07 The RESULTS [facility] CHEM PANEL Procalcitoni 0.11 0.00 - 02/07 The n Lvl 0.10 [facility] URINE AND UA Sq Epi None Seen 02/04 The STOOL /2015 [facility] URINE AND UA <=1.0 0.1 - 1.0 02/04 The STOOL Urobilinogen mg/dL [facility] URINE AND UA Leuk Est Negative Negative 02/04 The STOOL (02/05/16 12:36 AM) /2015 [facility] URINE AND UA Bacteria Occasional None Seen 02/04 The STOOL /HPF /HPF [facility] URINE AND UA WBC 1 0 - 5 02/04 The STOOL /2015 [facility] URINE AND UA Blood Negative Negative 02/04 The STOOL (02/05/16 12:36 AM) /2015 [facility] URINE AND UA Bili Negative Negative 02/04 The STOOL *NA* /2015 [facility] (02/05/16 12:36 AM) URINE AND UA Nitrite Negative Negative 02/04 The STOOL (02/05/16 12:36 AM) [facility] URINE AND UA Glucose Negative Negative 02/04 The STOOL mg/dL mg/dL [facility] URINE AND UA Protein Negative Negative 02/04 The STOOL mg/dL mg/dL [facility] URINE AND UA Turbidity Clear Clear 02/04 The STOOL (02/05/16 12:36 AM) /2015 [facility] URINE AND UA pH 6.0 5.0 - 8.0 02/04 The STOOL /2015 [facility] URINE AND UA Color Light Yellow Yellow 02/04 The STOOL *NA* /2015 [facility] (02/05/16 12:36 AM) URINE AND UA Ketones Negative Negative 02/04 The STOOL mg/dL mg/dL [facility] URINE AND UA Spec Grav 1.006 <=1.030 02/04 The STOOL [facility] URINE AND UA Sq Epi None Seen 09/06 MH The STOOL /2015 [facility] URINE AND UA <=1.0 0.1 - 1.0 01/31 [facility] The STOOL Urobilinogen mg/dL [facility] URINE AND UA Blood Negative Negative 01/31 The [facility] (02/01/16 4:31 PM) /2015 [facility] URINE AND UA Nitrite Negative Negative 01/31 The [facility] (02/01/16 4:31 PM) /2015 [facility] URINE AND UA Leuk Est Negative Negative 01/31 The [facility] (02/01/16 4:31 PM) /2015 [facility] URINE AND UA WBC 1 0 - 5 01/31 MH The STOOL /2015 [facility] URINE AND UA Hyal Cast 3 0 - 2 01/31 MH The STOOL /2015 [facility] URINE AND UA pH 5.5 5.0 - 8.0 01/31 The STOOL /2015 [facility] URINE AND UA Glucose Negative Negative 01/31 The [facility] mg/dL mg/dL [facility] URINE AND UA Ketones Negative Negative 01/31 The [facility] mg/dL mg/dL [facility] URINE AND UA Bili Negative Negative 01/31 The STOOL *NA* /2015 [facility] (02/01/16 4:31 PM) URINE AND UA Protein Negative Negative 01/31 The [facility] mg/dL mg/dL [facility] URINE AND UA Color Yellow Yellow 01/31 The STOOL *NA* /2015 [facility] (02/01/16 4:31 PM) URINE AND UA Turbidity Clear Clear 01/31 The [facility] (02/01/16 4:31 PM) [facility] URINE AND UA Spec Grav 1.007 <=1.030 01/31 The STOOL [facility] URINE CHEM U Chloride 41 01/31 The [facility] URINE CHEM U Creatinine 70.40 01/31 The [facility] URINE CHEM U Sodium 38 01/31 The [facility] CARDIAC Troponin-I <0.02 0.00 - 01/30 The ENZYMES 0.40 [facility] CHEM PANEL Procalcitoni 0.13 0.00 - 01/30 The n Lvl 0.10 [facility] CHEM PANEL Lactic Acid 1.7 0.5 - 2.2 09 The Lvl [facility] CHEM PANEL Bili Total 0.4 0.2 - 1.3 09/05 MH The [facility] CHEM PANEL Total 7.7 6.4 - 8.4 09 The Protein [facility] CHEM PANEL AST 19 0 - 37 09 MH The [facility] CHEM PANEL ALT 23 0 - 65 09 The [facility] CHEM PANEL Alk Phos 58 39 - 136 09 MH The [facility] CHEM PANEL Albumin Lvl 2.8 3.5 - 5.0 09/ The [facility] CHEM PANEL A/G Ratio 0.6 0.7 - 1.6 09/05 The [facility] CHEM PANEL Globulin 4.9 2.7 - 4.2 09 The [facility] CHEM PANEL B/C Ratio 15 6 - 25 09 The [facility] HEMATOLOGY PTT 42.4 22.9 - 01/30 The 35.8 [facility] HEMATOLOGY PT 14.6 12.0 - 01/30 MH The 14.7 [facility] HEMATOLOGY INR 1.11 0.85 - 01/30 The 1.17 [facility] LIPIDS VLDL 77 02/16 The [facility] LIPIDS HDL 29 >=61 mg/dL 02/16 The [facility] LIPIDS Chol 222 <=199 02/16 MH The mg/dL [facility] LIPIDS CHD Risk 7.66 4.00 - 02/16 MH The 7.30 [facility] LIPIDS Trig 384 <=149 02/16 MH The mg/dL [facility] LIPIDS LDL 116 <=99 mg/dL 02/16 The (Calculated) [facility] CARDIAC CK MB Index 0.8 0.0 - 2.5 02/16 MH The ENZYMES [facility] CARDIAC CK MB 0.6 0.5 - 3.6 02/16 MH The ENZYMES [facility] CARDIAC Troponin-I <0.02 0.00 - 02/16 MH The ENZYMES 0.40 [facility] CARDIAC Total CK 76 12 - 191 02/16 MH The ENZYMES [facility] CARDIAC Troponin-I <0.02 0.00 - 02/16 MH The ENZYMES 0.40 [facility] CARDIAC Total CK 89 12 - 191 02/16 MH The ENZYMES [facility] CARDIAC CK MB Index 1.0 0.0 - 2.5 02/16 MH The ENZYMES [facility] CARDIAC CK MB 0.9 0.5 - 3.6 02/16 MH The ENZYMES /2014 [facility] THYROID TSH 2.000 0.360 - 02/16 MH The PANEL 3.740 /2014 [facility] CARDIAC CK MB Index 0.8 0.0 - 2.5 02/15 MH The ENZYMES [facility] CARDIAC Troponin-I <0.02 0.00 - 02/15 MH The ENZYMES 0.40 /2014 [facility] CARDIAC Total CK 111 12 - 191 02/15 MH The ENZYMES [facility] CARDIAC CK MB 0.9 0.5 - 3.6 02/15 MH The ENZYMES /2014 [facility] CHEM PANEL eGFR 70 02/15 [facility] Comment: [facility] eGFR is calculated using the CKD-EPI formula. [...] 87 39 - 136 02/15 MH The [facility] CHEM PANEL AST 23 0 - 37 02/15 The [facility] CHEM PANEL ALT 27 0 - 65 02/15 MH The [facility] CHEM PANEL Albumin Lvl 3.4 3.5 - 5.0 02/15 The [facility] CHEM PANEL Total 7.7 6.4 - 8.4 02/15 The Protein [facility] CHEM PANEL A/G Ratio 0.8 0.7 - 1.6 02/15 The [facility] CHEM PANEL Globulin 4.3 2.0 - 4.0 02/15 The [facility] CHEM PANEL B/C Ratio 6 6 - 25 02/15 The [facility] CHEM PANEL AGAP 11.8 10.0 - 02/15 The 20.0 [facility] CHEM PANEL Bili Total 0.4 0.2 - 1.3 02/15 The [facility] CHEM PANEL Calcium Lvl 9.2 8.5 - 10.5 02/15 The [facility] CHEM PANEL CO2 25 24 - 32 02/15 The [facility] CHEM PANEL Glucose Lvl 88 70 - 99 02/15 The [facility] CHEM PANEL Chloride Lvl 106 95 - 109 02/15 The [facility] CHEM PANEL Potassium 4.8 3.5 - 5.1 02/15 The [facility] CHEM PANEL Sodium Lvl 138 135 - 145 02/15 The [facility] CHEM PANEL Creatinine 1.2 0.5 - 1.4 02/15 The [facility] CHEM PANEL BUN 7 7 - 22 02/15 The [facility] CHEM PANEL Magnesium 2.0 1.8 - 2.4 02/15 The [facility] HEMATOLOGY Eosinophils 0.4 0.0 - 0.5 02/15 The # [facility] HEMATOLOGY Basophils # 0.0 0.0 - 0.2 02/15 The [facility] HEMATOLOGY Segs-Bands # 4.6 1.5 - 8.1 02/15 The [facility] HEMATOLOGY Monocytes # 0.8 0.0 - 0.8 02/15 The [facility] HEMATOLOGY Monocytes 10.3 2.0 - 12.0 02/15 The [facility] HEMATOLOGY Eosinophils 5.0 0.0 - 4.0 02/15 The [facility] HEMATOLOGY Basophils 0.4 0.0 - 1.0 02/15 The [facility] HEMATOLOGY Lymphocytes 25.7 20.0 - 02/15 The 40.0 [facility] HEMATOLOGY Lymphocytes 2.0 1.0 - 5.5 02/15 MH The # [facility] HEMATOLOGY Segs 58.6 45.0 - 02/15 MH The 75.0 [facility] HEMATOLOGY INR 1.00 0.85 - 02/15 MH The 1.17 [facility] HEMATOLOGY PT 13.5 12.0 - 02/15 The 14.7 [facility] HEMATOLOGY PTT 33.7 22.9 - 02/15 The 35.8 [facility] HEMATOLOGY Platelet 170 133 - 450 02/15 The [facility] HEMATOLOGY WBC 7.8 3.7 - 10.4 02/15 The [facility] HEMATOLOGY MCH 33.3 27.0 - 02/15 The 31.0 [facility] HEMATOLOGY RBC 4.62 4.70 - 02/15 The 6.10 [facility] HEMATOLOGY MCV 97.4 80.0 - 02/15 The 94.0 [facility] HEMATOLOGY Hgb 15.4 14.0 - 02/15 The 18.0 [facility] HEMATOLOGY Hct 45.0 42.0 - 02/15 The 54.0 [facility] HEMATOLOGY MCHC 34.2 32.0 - 02/15 The 36.0 [facility] HEMATOLOGY MPV 7.0 7.4 - 10.4 02/15 The [facility] HEMATOLOGY RDW 16.0 11.5 - 02/15 The 14.5 [facility] DRUG U Cocaine Negative Negative 01/23 The SCREEN Scr *NA* [facility] (01/23/15 3:10 PM) DRUG U Opiate Scr Negative Negative 01/23 The SCREEN *NA* [facility] (01/23/15 3:10 PM) DRUG U Cannab Scr Negative Negative 01/23 The SCREEN [facility] (01/23/15 3:10 PM) DRUG U Phencyc Negative Negative 01/23 The SCREEN Scr *NA* [facility] (01/23/15 3:10 PM) DRUG UDS Note See Note 01/23 The SCREEN (01/23/15 3:10 PM) /2014 [facility] DRUG U Shoshana Scr Negative Negative 01/23 The SCREEN *NA* [facility] (01/23/15 3:10 PM) DRUG U Benzodia Positive Negative 01/23 The SCREEN Scr *ABN* [facility] (01/23/15 3:10 PM) DRUG U Amph Scr Negative Negative 01/23 The SCREEN *NA* [facility] (01/23/15 3:10 PM) URINE AND UA <=1.0 0.1 - 1.0 01/23 The STOOL Urobilinogen mg/dL /2014 [facility] URINE AND UA Glucose Negative Negative 01/23 MH The STOOL mg/dL mg/dL [facility] URINE AND UA Sq Epi Few /LPF Few /LPF 01/23 The STOOL /2014 [facility] URINE AND UA Leuk Est Negative Negative 01/23 The STOOL (01/23/15 3:10 PM) /2014lands URINE AND UA Nitrite Negative Negative 01/23 MH The STOOL (01/23/15 3:10 PM) /2014 [facility] URINE AND UA Bacteria Occasional None Seen 01/23 The STOOL /HPF /HPF [facility] URINE AND UA RBC 3 0 - 2 01/23 MH The STOOL /2014 [facility] URINE AND UA WBC <1 0 - 5 01/23 The STOOL /2014 [facility] URINE AND UA Hyal Cast 5 0 - 2 01/23 The STOOL /2014[facility] URINE AND UA Amorph Occasional None Seen 01/23 The STOOL [facility] /HPF /HPF [facility] URINE AND UA Mucus Few /LPF None Seen 01/23 The STOOL /LPF /2014 [facility] URINE AND UA Color Yellow Yellow 01/23 The STOOL *NA* /2014 [facility] (01/23/15 3:10 PM) URINE AND UA Protein 200 mg/dL Negative 01/23 The STOOL mg/dL [facility] URINE AND UA pH 6.0 5.0 - 8.0 01/23 The STOOL [facility] URINE AND UA Spec Grav 1.017 <=1.030 01/23 The STOOL [facility] URINE AND UA Turbidity Slight Clear 01/23 The STOOL *ABN* /2014 [facility] (01/23/15 3:10 PM) URINE AND UA Blood Moderate Negative 01/23 The STOOL *ABN* /2014 [facility] (01/23/15 3:10 PM) URINE AND UA Bili Negative Negative 01/23 The STOOL *NA* /2014 [facility] (01/23/15 3:10 PM) URINE AND UA Ketones Trace Negative 01/23 The STOOL mg/dL mg/dL [facility] URINE AND UA Sperm Occasional None Seen 01/23 The STOOL /HPF /HPF [facility] CARDIAC CK MB Index 0.7 0.0 - 2.5 01/23 The ENZYMES /2014 [facility] CARDIAC Troponin-I <0.02 0.00 - 01/23 The ENZYMES 0.40 [facility] CARDIAC Total CK 170 12 - 191 08/29 MH The ENZYMES /2014 [facility] CARDIAC CK MB 1.2 0.5 - 3.6 01/23 The ENZYMES [facility] CHEM PANEL eGFR 54 01/23 [facility] Comment: [facility] eGFR is calculated using the CKD-EPI formula. [...] A/G Ratio 1.0 0.7 - 1.6 01/23 [facility] CHEM PANEL AST 23 0 - 37 01/23 The [facility] CHEM PANEL Albumin Lvl 4.3 3.5 - 5.0 01/23 The [facility] CHEM PANEL ALT 39 0 - 65 01/23 MH The [facility] CHEM PANEL Total 8.8 6.4 - 8.4 01/23 MH The Protein [facility] CHEM PANEL Calcium Lvl 9.3 8.5 - 10.5 01/23 The [facility] CHEM PANEL AGAP 20.5 10.0 - 01/23 MH The 20.0 [facility] CHEM PANEL Globulin 4.5 2.0 - 4.0 01/23 MH The [facility] CHEM PANEL B/C Ratio 10 6 - 25 01/23 MH [facility] CHEM PANEL Bili Total 0.5 0.2 - 1.3 01/23 The [facility] CHEM PANEL Alk Phos 88 39 - 136 01/23 The [facility] CHEM PANEL Potassium 4.5 3.5 - 5.1 01/23 MH The Lvl [facility] CHEM PANEL Sodium Lvl 139 135 - 145 01/23 The [facility] CHEM PANEL CO2 17 24 - 32 01/23 The [facility] CHEM PANEL Chloride Lvl 106 95 - 109 01/23 The [facility] CHEM PANEL Glucose Lvl 114 70 - 99 01/23 The [facility] CHEM PANEL Creatinine 1.5 0.5 - 1.4 01/23 The Lvl [facility] CHEM PANEL BUN 15 7 - 22 01/23 The [facility] HEMATOLOGY Segs 89.7 45.0 - 01/23 The 75.0 [facility] HEMATOLOGY Segs-Bands # 11.6 1.5 - 8.1 01/23 The [facility] HEMATOLOGY Lymphocytes 0.8 1.0 - 5.5 01/23 The [facility] HEMATOLOGY Lymphocytes 6.5 20.0 - 01/23 The 40.0 [facility] HEMATOLOGY Monocytes 3.2 2.0 - 12.0 01/23 The [facility] HEMATOLOGY Monocytes # 0.4 0.0 - 0.8 01/23 The [facility] HEMATOLOGY Eosinophils 0.0 0.0 - 0.5 01/23 The [facility] HEMATOLOGY Basophils # 0.1 0.0 - 0.2 01/23 The [facility] HEMATOLOGY Eosinophils 0.2 0.0 - 4.0 01/23 The [facility] HEMATOLOGY Basophils 0.4 0.0 - 1.0 01/23 The [facility] HEMATOLOGY PT 14.2 12.0 - 01/23 The 14. [facility] HEMATOLOGY INR 1.07 0.85 - 01/23 The 1.17 [facility] HEMATOLOGY PTT 31.2 22.9 - 01/23 The 35.8 [facility] HEMATOLOGY MPV 8.3 7.4 - 10.4 01/23 The [facility] HEMATOLOGY MCHC 32.8 32.0 - 01/23 The 36.0 [facility] HEMATOLOGY RDW 17.0 11.5 - 01/23 The 14. [facility] HEMATOLOGY Platelet 202 133 - 450 01/23 The [facility] HEMATOLOGY Hct 51.7 42.0 - 01/23 The 54.0 [facility] HEMATOLOGY MCV 97.9 80.0 - 01/23 The 94.0 [facility] HEMATOLOGY MCH 32.1 27.0 - 01/23 The 31.0 [facility] HEMATOLOGY Hgb 17.0 14.0 - 01/23 The 18.0 [facility] HEMATOLOGY WBC 12.9 3.7 - 10.4 01/23 [facility] HEMATOLOGY RBC 5.28 4.70 - 01/23 The 6.10 [facility] TOXICOLOGY Etoh (%) <0.003 01/23 [facility] TOXICOLOGY Ethanol Lvl <3 01/23 [facility] CHEM PANEL eGFR 71 11/20 <sup>1</sup>R [facility] Comment: The eGFR is calculated using the [...] Total 0.3 0.2 - 1.3 11/20 The [facility] CHEM PANEL AST 18 0 - 37 11/20 [facility] CHEM PANEL Alk Phos 88 39 - 136 11/20 The [facility] CHEM PANEL ALT 36 0 - 65 11/20 The [facility] CHEM PANEL Albumin Lvl 4.0 3.5 - 5.0 11/20 The [facility] CHEM PANEL Total 8.8 6.4 - 8.4 11/20 The Protein [facility] CHEM PANEL CO2 22 24 - 32 11/20 [facility] CHEM PANEL Calcium Lvl 9.5 8.5 - 10.5 11/20 [facility] CHEM PANEL Chloride Lvl 103 95 - 109 11/20 The [facility] CHEM PANEL Sodium Lvl 135 135 - 145 11/20 The [facility] CHEM PANEL Potassium 4.2 3.5 - 5.1 11/20 The [facility] CHEM PANEL Creatinine 1.2 0.5 - 1.4 11/20 The [facility] CHEM PANEL Glucose Lvl 110 70 - 99 11/20 <sup>4</sup>I The nterpretive [facility] Data: Adult reference range values reflect the clinical guidelines
of the [place] [employer]. CHEM PANEL BUN 7 7 - 22 11/20 The [facility] CHEM PANEL Globulin 4.8 2.0 - 4.0 11/20 The [facility] CHEM PANEL A/G Ratio 0.8 0.7 - 1.6 11/20 The [facility] CHEM PANEL B/C Ratio 6 6 - 25 11/20 The [facility] CHEM PANEL AGAP 14.2 10.0 - 11/20 The 20.0 [facility] HEMATOLOGY Eosinophils 3.2 0.0 - 4.0 11/20 The [facility] HEMATOLOGY Lymphocytes 16.7 20.0 - 11/20 The 40.0 [facility] HEMATOLOGY Monocytes 6.2 2.0 - 12.0 11/20 The [facility] HEMATOLOGY Segs 73.3 45.0 - 11/20 The 75.0 [facility] HEMATOLOGY Basophils 0.6 0.0 - 1.0 11/20 The [facility] HEMATOLOGY Basophils # 0.1 0.0 - 0.2 11/20 The [facility] HEMATOLOGY Eosinophils 0.3 0.0 - 0.5 11/20 The # [facility] HEMATOLOGY Monocytes # 0.6 0.0 - 0.8 11/20 The [facility] HEMATOLOGY Lymphocytes 1.6 1.0 - 5.5 11/20 The [facility] HEMATOLOGY Segs-Bands # 6.8 1.5 - 8.1 11/20 The [facility] HEMATOLOGY Platelet 170 133 - 450 11/20 The [facility] HEMATOLOGY MPV 7.6 7.4 - 10.4 11/20 [facility] HEMATOLOGY MCHC 33.8 32.0 - 11/20 The 36.0 [facility] HEMATOLOGY RDW 14.2 11.5 - 11/20 The 14. [facility] HEMATOLOGY MCH 33.1 27.0 - 11/20 The 31. [facility] HEMATOLOGY MCV 97.9 80.0 - 11/20 The 94.0 [facility] HEMATOLOGY Hgb 14.2 14.0 - 11/20 The 18.0 [facility] HEMATOLOGY Hct 42.1 42.0 - 11/20 The 54.0 [facility] HEMATOLOGY WBC 9.3 3.7 - 10.4 11/20 [facility] HEMATOLOGY RBC 4.30 4.70 - 11/20 The 6. [facility] TOXICOLOGY Vanco Tr TND unknown 11/20 [facility] TOXICOLOGY Vanco Tr 7.7 11/20 <sup>5</sup>I nterpretive [facility] Data: Therapeutic Range:
Trough: 10 - 20 ug/mL
Peak: 20 - 40 ug/mL
Potential Toxicity: >80 ug/mL CHEM PANEL eGFR 47 11/17 <sup>2</sup>R [facility] Comment: The eGFR is calculated using the [...] Creatinine 1.7 0.5 - 1.4 11/17 The [facility] CHEM PANEL BUN 14 7 - 22 11/17 The [facility] ELECTROLYT Potassium 4.3 3.5 - 5.1 11/17 The ES Lvl [facility] HEMATOLOGY Hct 36.8 42.0 - 11/17 The 54.0 [facility] HEMATOLOGY MCV 97.6 80.0 - 11/17 The 94.0 [facility] HEMATOLOGY MCH 33.2 27.0 - 11/17 The 31.0 [facility] HEMATOLOGY Hgb 12.5 14.0 - 11/17 The 18.0 [facility] HEMATOLOGY WBC 7.7 3.7 - 10.4 11/17 The [facility] HEMATOLOGY RBC 3.77 4.70 - 11/17 The 6.10 [facility] HEMATOLOGY RDW 14.0 11.5 - 11/17 The 14.5 [facility] HEMATOLOGY Platelet 155 133 - 450 11/17 The [facility] HEMATOLOGY MPV 7.7 7.4 - 10.4 11/17 The [facility] HEMATOLOGY MCHC 34.0 32.0 - 11/17 The 36.0 [facility] HEMATOLOGY Segs-Bands # 5.7 1.5 - 8.1 11/17 The [facility] HEMATOLOGY Eosinophils 4.3 0.0 - 4.0 11/17 The [facility] HEMATOLOGY Basophils # 0.0 0.0 - 0.2 11/17 The [facility] HEMATOLOGY Basophils 0.3 0.0 - 1.0 11/17 The [facility] HEMATOLOGY Monocytes 5.1 2.0 - 12.0 11/17 The [facility] HEMATOLOGY Lymphocytes 16.3 20.0 - 11/17 The 40.0 [facility] HEMATOLOGY Lymphocytes 1.2 1.0 - 5.5 11/17 The # [facility] HEMATOLOGY Eosinophils 0.3 0.0 - 0.5 11/17 The # [facility] HEMATOLOGY Monocytes # 0.4 0.0 - 0.8 11/17 The [facility] HEMATOLOGY Segs 74.0 45.0 - 11/17 The 75.0 [facility] TOXICOLOGY Vanco Tr TND unknown 11/17 The [facility] TOXICOLOGY Vanco Tr 24.4 11/17 <sup>6</sup>I nterpretive [facility] Data: Therapeutic Range:
Trough: 10 - 20 ug/mL
Peak: 20 - 40 ug/mL
Potential Toxicity: >80 ug/mL CHEM PANEL eGFR 54 11/13 <sup>3</sup>R [facility] Comment: The eGFR is calculated using the [...] Creatinine 1.5 0.5 - 1.4 11/13 The [facility] CHEM PANEL BUN 11 7 - 22 11/13 [facility] ELECTROLYT Potassium 4.5 3.5 - 5.1 11/13 The [facility] HEMATOLOGY MCH 32.7 27.0 - 11/13 The 31.0 [facility] HEMATOLOGY MCHC 33.6 32.0 - 11/13 The 36.0 [facility] HEMATOLOGY Platelet 186 133 - 450 11/13 [facility] HEMATOLOGY RDW 14.0 11.5 - 11/13 The 14. [facility] HEMATOLOGY MPV 7.4 7.4 - 10.4 11/13 [facility] HEMATOLOGY Hgb 12.2 14.0 - 11/13 The 18.0 [facility] HEMATOLOGY RBC 3.73 4.70 - 11/13 The 6.10 [facility] HEMATOLOGY MCV 97.6 80.0 - 11/13 The 94.0 [facility] HEMATOLOGY Hct 36.4 42.0 - 11/13 The 54.0 [facility] HEMATOLOGY WBC 9.7 3.7 - 10.4 11/13 The [facility] HEMATOLOGY Basophils # 0.1 0.0 - 0.2 11/13 The [facility] HEMATOLOGY Lymphocytes 2.0 1.0 - 5.5 11/13 The [facility] HEMATOLOGY Monocytes # 0.7 0.0 - 0.8 11/13 The [facility] HEMATOLOGY Eosinophils 0.4 0.0 - 0.5 11/13 The # [facility] HEMATOLOGY Basophils 0.6 0.0 - 1.0 11/13 The [facility] HEMATOLOGY Segs-Bands # 6.6 1.5 - 8.1 11/13 The [facility] HEMATOLOGY Lymphocytes 20.5 20.0 - 11/13 The 40.0 [facility] HEMATOLOGY Monocytes 7.3 2.0 - 12.0 11/13 The [facility] HEMATOLOGY Eosinophils 3.7 0.0 - 4.0 11/13 The [facility] HEMATOLOGY Segs 67.9 45.0 - 11/13 The 75.0 [facility] TOXICOLOGY Vanco Tr TND NA 11/13 [facility] TOXICOLOGY Vanco Tr 24.1 11/13 <sup>7</sup>I nterpretive [facility] Data: Therapeutic Range:
Trough: 10 - 20 ug/mL
Peak: 20 - 40 ug/mL
Potential Toxicity: >80 ug/mL Pathology Reports No Data Provided for This Section Diagnostic Reports Report Value Date Source Ext Lower Venous Doppler Study: Ext Lower Venous Doppler Bilat US 03/13/2016 11:06 PM CDT 03/13/2016 [facility] Bil US Ordering Physician: Blanche Diaz MD [...] no evidence for deep venous thrombosis. SL: [id number] Chest 1view DX Study: Chest 1view DX 03/13/2016 11:18 PM CDT 03/13/2016 [facility] Ordering Physician: Blanche Diaz MD Clinical [...] no pneumothorax. No acute cardiopulmonary disease. SL: [id number] Chest 1view DX Clinical Indication: Fever; 02/15/2016 [facility] Comparison: 02/15/2015 FINDINGS: AP chest radiographs shows normal lung volumes without interstitial or airspace opacities, pleural effusions or pneumothorax. The heart size and pulmonary vasculature are normal. The trachea is midline. There are no clinically significant osseous abnormalities noted. IMPRESSION: No chest radiographic evidence of acute cardiopulmonary disease. SL: [id number] Foot series DX Clinical Indication: Pain and swelling. Post surgery. 2015 [facility] Comparison: 01/31/2016. FINDINGS: The 4 views of [...] post transmetatarsal amputation, as noted above. SL: [id number] Abdominal Aorta with Clinical Indication: Gangrene; right foot gangrene. 12/2015 [facility] runoff CTA Comparison: None TECHNIQUE: CT angiography [...] 5th MCP is concerning for osteomyelitis. SL: [id number] Retroperitoneal limited Clinical Indication: Renal insufficiency 02/01/2016 [facility] US Comparison: None TECHNIQUE: Multiple longitudinal and [...] with hematuria or urinary tract infection. SL: [id number] Ext Lower Arterial Clinical Indication: Right leg claudication and leg ulcer. 01/31/2016 [facility] Doppler unilat US Comparison: None TECHNIQUE: Sonographic evaluation of the right lower extremity arteries was performed with grayscale and color Doppler imaging with standard technique. FINDINGS: RIGHT: MATTRESS FINISHER: Monophasic waveforms with severely decreased peak systolic velocities. SFA: Monophasic waveforms. Spectral broadening. Mildly decreased peak systolic velocities. This may be related to collateral flow. POP: Monophasic waveforms. Spectral broadening with moderately decreased peak systolic velocities. SENIOR QA AUTOMATION ENGINEER: Monophasic waveforms. Spectral broadening with severely decreased [...] or conventional angiography for complete assessment. SL: [id number] Foot series DX Clinical Indication: Pain and swelling , status post amputation 4 years ago 01/31/2016 [facility] Comparison: None FINDINGS: 3 views of the [...] the right foot may be beneficial. SL: [id number] Chest 2 views DX NAME: REMEDIOS SANCHEZ 02/15/2015 [facility] : 1965 SEX: M Ordering Physician: Jaciel [...] Wrist complete DX NAME: REMEDIOS SANCHEZ 02/09/2015 [facility] : 1965 SEX: M Ordering Physician: Víctor [...] wo contrast CT Name: REMEDIOS SANCHEZ 01/23/2015 [facility] : 1965 SEX: M Ordering Physician: Tim [...] Comments Source Systolic (mm Hg) 84 04/05/2016 [facility] Diastolic (mm Hg) 47 04/05/2016 [facility] Respitory Rate 18 04/05/2016 [facility] Heart Rate 76 04/05/2016 [facility] Systolic (mm Hg) 80 04/05/2016 [facility] Diastolic (mm Hg) 49 04/05/2016 [facility] Respitory Rate 18 04/05/2016 [facility] Heart Rate 73 04/05/2016 [facility] Respitory Rate 18 04/05/2016 [facility] Heart Rate 72 04/05/2016 [facility] Systolic (mm Hg) 79 04/05/2016 [facility] Diastolic (mm Hg) 42 04/05/2016 [facility] Temperature Oral (F) 97.7 F 04/05/2016 [facility] Temperature Oral (F) 97.7 F 04/05/2016 [facility] Temperature Oral (F) 98.2 F 04/05/2016 [facility] Weight 98.6 04/05/2016 [facility] BMI Calculated 28.81 04/05/2016 [facility] Height 185 cm 04/05/2016 [facility] Respitory Rate 18 03/14/2016 [facility] Systolic (mm Hg) 119 03/14/2016 [facility] Diastolic (mm Hg) 63 03/14/2016 [facility] Systolic (mm Hg) 124 03/14/2016 [facility] Diastolic (mm Hg) 58 03/14/2016 [facility] Respitory Rate 16 03/14/2016 [facility] Temperature Oral (F) 98.8 F 03/14/2016 [facility] Respitory Rate 18 03/14/2016 [facility] Systolic (mm Hg) 129 03/14/2016 [facility] Diastolic (mm Hg) 62 03/14/2016 [facility] Temperature Oral (F) 98.7 F 03/14/2016 [facility] Heart Rate 95 03/14/2016 [facility] BMI Calculated 28.69 03/13/2016 [facility] Weight 98.636 03/13/2016 [facility] Temperature Oral (F) 98.6 F 03/13/2016 [facility] Height 185.42 cm 03/13/2016 [facility] Heart Rate 105 03/13/2016 [facility] Heart Rate 111 02/18/2016 [facility] Temperature Oral (F) 98.8 F 02/18/2016 [facility] Respitory Rate 18 02/18/2016 [facility] Systolic (mm Hg) 110 02/18/2016 [facility] Diastolic (mm Hg) 56 02/18/2016 [facility] Temperature Oral (F) 98.3 F 02/18/2016 [facility] Heart Rate 97 02/18/2016 [facility] Systolic (mm Hg) 94 02/18/2016 [facility] Diastolic (mm Hg) 56 02/18/2016 [facility] Respitory Rate 18 02/18/2016 [facility] Temperature Oral (F) 98.2 F 02/18/2016 [facility] Heart Rate 86 02/18/2016 [facility] Systolic (mm Hg) 112 02/18/2016 [facility] [place] Diastolic (mm Hg) 54 02/18/2016 [facility] Respitory Rate 18 02/18/2016 [facility] Weight 96.023 02/08/2016 [facility] BMI Calculated 28.69 02/08/2016 [facility] Weight 98.636 02/08/2016 [facility] [place] Height 185.42 cm 02/08/2016 [facility] Weight 97.273 02/01/2016 [facility] BMI Calculated 28.29 02/01/2016 [facility] Height 185.42 cm 02/01/2016 [facility] Height 185.42 cm 01/31/2016 [facility] BMI Calculated 27.63 01/31/2016 [facility] Respitory Rate 16 02/16/2015 [facility] Temperature Oral (F) 98.0 F 02/16/2015 [facility] Respitory Rate 18 02/16/2015 [facility] Heart Rate 77 02/16/2015 [facility] Systolic (mm Hg) 175 02/16/2015 [facility] Diastolic (mm Hg) 94 02/16/2015 [facility] Temperature Oral (F) 98.2 F 02/16/2015 [facility] Heart Rate 74 02/16/2015 [facility] Systolic (mm Hg) 164 02/16/2015 [facility] Diastolic (mm Hg) 89 02/16/2015 [facility] Respitory Rate 18 02/16/2015 [facility] Temperature Oral (F) 97.5 F 02/16/2015 [facility] Systolic (mm Hg) 145 02/16/2015 [facility] Diastolic (mm Hg) 83 02/16/2015 [facility] Heart Rate 72 02/16/2015 [facility] Height 185.42 cm 02/16/2015 [facility] BMI Calculated 28.58 02/16/2015 [facility] Weight 98.267 02/16/2015 [facility] Weight 13.636 02/15/2015 [facility] BMI Calculated 3.97 02/15/2015 [facility] Height 185.42 cm 02/15/2015 [facility] Temperature Oral (F) 98.2 F 02/09/2015 [facility] Heart Rate 88 02/09/2015 [facility] Respitory Rate 18 02/09/2015 [facility] Systolic (mm Hg) 173 02/09/2015 [facility] Diastolic (mm Hg) 82 02/09/2015 [facility] BMI Calculated 31.47 02/09/2015 [facility] Weight 108.182 02/09/2015 [facility] Height 185.42 cm 02/09/2015 [facility] Systolic (mm Hg) 189 02/09/2015 [facility] Diastolic (mm Hg) 97 02/09/2015 [facility] Heart Rate 77 02/09/2015 [facility] Respitory Rate 16 02/09/2015 [facility] Systolic (mm Hg) 172 01/23/2015 [facility] Diastolic (mm Hg) 79 01/23/2015 [facility] Systolic (mm Hg) 174 01/23/2015 [facility] Diastolic (mm Hg) 92 01/23/2015 [facility] Systolic (mm Hg) 184 01/23/2015 [facility] Diastolic (mm Hg) 86 01/23/2015 [facility] Respitory Rate 18 01/23/2015 [facility] Weight 104.545 01/23/2015 [facility] Height 185.42 cm 01/23/2015 [facility] BMI Calculated 30.41 01/23/2015 [facility] Respitory Rate 18 01/23/2015 [facility] Heart Rate 92 01/23/2015 [facility] Temperature Oral (F) 98.5 F 01/23/2015 [facility] Encounters Location Location Encounter Encounter Reason Attending ADM DC Status Source Details Type Number For Provider Date Date Visit [facility] OP Recurring [id number] Nabeel 10/31 11/30 [facility] [place] Rosibel /2013 [facility] EC Emergency [id number] Edozie 01/23 01/23 [facility] Lisandra /2014 [facility] EC Emergency [id number] Az Alana 02/09 02/09 [facility] /2014 [facility] OBS [id number] Ujan 02/15 02/16 [facility] [place] [facility] Torres /2014 [place] The Patient [facility] Inpatient [id number] Abbas 01/30 02/17 [facility] [place] Championi /2015 [facility] Emergency [id number] Blanche 03/13 03/14 [facility] Gottis /2015 [facility] Outpatient [id number] Abbas 04/05 04/06 [facility] [place] [facility] Procedures Procedure Code Date Perfomer Comments Source Amputation of toe [id number] [place] Amputation of [id number] 2 toes The toe<sup>1</sup> [place] Blood transfusion [id number] [facility] Assessment and Plan Assessment and Plan Date Source Extracted from:Title: id 02/18/2016 [facility] Author: Rogerio Ruggiero DO Date: 02/18/16 Impression and Plan The patient was seen and examined by me with the resident/POLITICAL RESEARCHER/PA and I agree with the History/Exam documented. Extracted from:Title: Dr. Eugene Podiatry Consultation Author: Lise Eugene DPM Date: 02/10/16 Impression and Plan Diagnosis Gangrene of foot (OAF48-VM I96, Working, Medical). PVD (peripheral vascular disease) (OIX31-RI I73.9, Working, Medical). Course: Worsening. - PLAN [...] for assistance Extracted from:Title: Consult Note 02/16/2015 [place] Author: Foreign Toscano MD Date: 02/16/15 Assessment/Plan [...] History Date Source Social History TypeResponse 10/21/2013 [place] Substance Abuse Previous Treatment: None. Alcohol Current, [...]
--- OUTSIDE RECORDS SUMMARY | 2018-12-27 11:41 | XMS REPORT ---
:1965 [facility] [address] [place] [address] [address] [place] [address] Care Team Providers Name Role Phone CLARISSA SHEEHAN Unavailable Unavailable VICTOR M SEGURA Unavailable Unavailable Problems This patient has no known problems. Allergies, Adverse Reactions, Alerts This patient has no known allergies or adverse reactions. Medications This patient has no known medications. Results Test Description Test Time Test Comments Text Results Atomic Results Result Comments BLOOD CULTURE 2018-10-18 02:00:00 Test Item Value Reference Range Comments CULTURE (BEAKER) (test dndw=4036) No growth in 5 days BLOOD [id number] 20:01:00 Test Item Value Reference Range Comments CULTURE (BEAKER) (test uhpo=2755) No growth in 5 days EEG AWAKE AND [id number] 14:49:00Reason for exam:->seizuresDate(s) of EE10/14/18DATE OF REPORT: 10/14/18ACC: [id number] Number: [id number] time: 13:36Stop time: 13:57ICD-10: R56.9 Unspecified ConvulsionsCPT Code: 52700 EEG: awake and drowsy <40 min HISTORY: [...] THAT CAN AFFECT EEG: Versed, Levetiracetam TECHNICAL SUMMARY:This is a digital video-EEG recorded with 32 input channels reviewed with bipolar and referential montages using the modified combinatorial system nomenclature. DESCRIPTION OF RECORD:During the maximally alert state a 9 Hz posterior dominant rhythm was seen that was symmetric, reactive to eye opening and well regulated. More anteriorly,low voltage frontocentral beta predominated. Drowsiness was characterized [...] possibility of epilepsy. It the clinical suspicion ofepilepsy remains, consider additional EEG recordings capturing the sleep state. Indigo Zabala MDNeurophysiology Fellow Anjali Floyd MDNeurophysiology/Epilepsy Attending BASI METABOLIC [id number] 07:41:00 Test Item Value Reference Range Comments SODIUM (BEAKER) (test 133 meq/L 136-145 rnts=037) POTASSIUM (BEAKER) (test 4.1 meq/L 3.5-5.1 Specimen slightly fsnv=542) hemolyzed CHLORIDE (BEAKER) (test 103 meq/L 98-107 taeo=311) CO2 (BEAKER) (test 19 meq/L 22-29 dmvs=308) BLOOD UREA NITROGEN 8 mg/dL 7-21 (BEAKER) (test kwpz=820) CREATININE (BEAKER) (test 0.83 mg/dL 0.57-1.25 Specimen slightly mqbl=776) hemolyzed GLUCOSE RANDOM (BEAKER) 84 mg/dL 70-105 (test njjj=195) CALCIUM (BEAKER) (test 8.5 mg/dL 8.4-10.2 xnvr=892) EGFR (BEAKER) (test 97 mL/min/1.73 sq m ESTIMATED GFR IS NOT shtp=3069) ACCURATE CREATININE CLEARANCE IN PREDICTING GLOMERULAR FILTRATION RATE. ESTIMATED GFR IS NOT APPLICABLE FOR DIALYSIS PATIENTS. CBC W/PLT COUNT & AUTO [id number] 05:30:00 Test Item Value Reference Range Comments WHITE BLOOD CELL COUNT (BEAKER) (test ywdw=950) 9.7 K/ L 3.5-10.5 RED BLOOD CELL COUNT (BEAKER) (test pixm=287) 4.44 M/ L 4.63-6.08 HEMOGLOBIN (BEAKER) (test cbpq=999) 14.9 GM/DL 13.7-17.5 HEMATOCRIT (BEAKER) (test ymwa=571) 44.1 % 40.1-51.0 MEAN CORPUSCULAR VOLUME (BEAKER) (test oiad=452) 99.3 fL 79.0-92.2 MEAN CORPUSCULAR HEMOGLOBIN (BEAKER) (test 33.6 pg 25.7-32.2 nudq=892) MEAN CORPUSCULAR HEMOGLOBIN CONC (BEAKER) (test 33.8 GM/DL 32.3-36.5 ojex=514) RED CELL DISTRIBUTION WIDTH (BEAKER) (test 15.2 % 11.6-14.4 eyvj=496) PLATELET COUNT (BEAKER) (test efuk=951) 177 K/CU MM 150-450 MEAN PLATELET VOLUME (BEAKER) (test pbwu=475) 9.7 fL 9.4-12.4 NUCLEATED RED BLOOD CELLS (BEAKER) (test 0 /100 WBC 0-0 eycn=772) NEUTROPHILS RELATIVE PERCENT (BEAKER) (test 73 % xqkl=601) LYMPHOCYTES RELATIVE PERCENT (BEAKER) (test 16 % iogc=648) MONOCYTES RELATIVE PERCENT (BEAKER) (test 11 % hqng=829) EOSINOPHILS RELATIVE PERCENT (BEAKER) (test 0 % ntko=529) BASOPHILS RELATIVE PERCENT (BEAKER) (test 0 % nqlv=140) NEUTROPHILS ABSOLUTE COUNT (BEAKER) (test 7.05 K/ L 1.78-5.38 zeev=972) LYMPHOCYTES ABSOLUTE COUNT (BEAKER) (test 1.52 K/ L 1.32-3.57 hkkz=423) MONOCYTES ABSOLUTE COUNT (BEAKER) (test 1.04 K/ L 0.30-0.82 uqds=085) EOSINOPHILS ABSOLUTE COUNT (BEAKER) (test 0.01 K/ L 0.04-0.54 sekn=192) BASOPHILS ABSOLUTE COUNT (BEAKER) (test 0.04 K/ L 0.01-0.08 uqjn=656) IMMATURE GRANULOCYTES-RELATIVE PERCENT (BEAKER) 0 % 0-1 (test etbw=2695) VITAMIN B12 AND [id number] 19:46:00 Test Item Value Reference Range Comments VITAMIN B12 (BEAKER) (test kvfv=353) 683 pg/mL 213-816 FOLATE (BEAKER) (test cekk=578) > ng/mL >=7.0 [id number] 17:59:00 Test Item Value Reference Range Comments PHOSPHORUS (BEAKER) (test cgyt=597) 4.0 mg/dL 2.3-4.7 [id number] 17:59:00 Test Item Value Reference Range Comments MAGNESIUM (BEAKER) (test otdv=636) 2.5 mg/dL 1.6-2.6 CT, BRAIN, WITHOUT [id number] 16:58:00FINAL REPORT CT head without contrast. Reason for [...] Nonspecific scattered supratentorial white matter hypodensity most likelyreflects chronic small vessel ischemic disease. There is [...] and chronic microvascular ischemic changes. Signed: Delisa Bustilloeport Verified Date/Time: 10/12/2018 16:58:56 Reading Location: [address] Neuro Reading Room Electronically signed by: DELISA BUSTILLO M.D. on 04:58 PMURINALYSIS W/ [id number] 16:25:00 Test Item Value Reference Range Comments COLOR (BEAKER) (test nmip=360) Light Yellow CLARITY (BEAKER) (test hthp=607) Clear SPECIFIC GRAVITY UA (BEAKER) (test vomc=599) 1.007 1.001-1.035 PH UA (BEAKER) (test nppi=958) 5.5 5.0-8.0 PROTEIN UA (BEAKER) (test yxve=365) 10 mg/dL Negative GLUCOSE UA (BEAKER) (test weos=936) Negative Negative KETONES UA (BEAKER) (test qjno=376) 20 mg/dL Negative BILIRUBIN UA (BEAKER) (test djsf=569) Negative Negative BLOOD UA (BEAKER) (test tbxj=146) Trace Negative NITRITE UA (BEAKER) (test xiov=269) Negative Negative LEUKOCYTE ESTERASE UA (BEAKER) (test wfbz=368) Negative Negative UROBILINOGEN UA (BEAKER) (test qmui=035) 0.2 mg/dL 0.2-1.0 RBC UA (BEAKER) (test rvah=644) < /HPF WBC UA (BEAKER) (test uqxc=395) 1 /HPF SQUAMOUS EPITHELIAL (BEAKER) (test yfdt=597) < /HPF SOURCE(BEAKER) (test swgh=7482) Urine, Voided BLOOD [id number] 10:00:00 Test Item Value Reference Range Comments CULTURE (BEAKER) (test ucqs=6547) No growth in 5 days STOOL CULTURE + SHIGA [id number] 09:59:00 Test Item Value Reference Range Comments CULTURE (BEAKER) (test No Salmonella, Shigella or bqzu=9780) Campylobacter isolated STOOL PATH [id number] 09:01:00 Test Item Value Reference Range Comments PATHOGEN EXAM CHARGED (BEAKER) (test lwms=7549) Done BASIC METABOLIC [id number] 06:59:00 Test Item Value Reference Range Comments SODIUM (BEAKER) (test 137 meq/L 136-145 ozpa=962) POTASSIUM (BEAKER) (test 3.6 meq/L 3.5-5.1 iqxd=001) CHLORIDE (BEAKER) (test 110 meq/L 98-107 sdaa=394) CO2 (BEAKER) (test 16 meq/L 22-29 eaza=480) BLOOD UREA NITROGEN 18 mg/dL 7-21 (BEAKER) (test nhdo=078) CREATININE (BEAKER) (test 2.02 mg/dL 0.57-1.25 bkuh=952) GLUCOSE RANDOM (BEAKER) 91 mg/dL 70-105 (test gurp=975) CALCIUM (BEAKER) (test 9.3 mg/dL 8.4-10.2 obql=464) EGFR (BEAKER) (test 35 mL/min/1.73 sq m ESTIMATED GFR IS NOT zhli=6477) ACCURATE CREATININE CLEARANCE IN PREDICTING GLOMERULAR FILTRATION RATE. ESTIMATED GFR IS NOT APPLICABLE FOR DIALYSIS PATIENTS. SHIGA TOXIN [id number] 15:48:00 Test Item Value Reference Range Comments SHIGA TOXIN 1 (BEAKER) (test yuvw=1106) Not detected Not detected SHIGA TOXIN 2 (BEAKER) (test qmxv=2270) Not detected Not detected CLOSTRIDIUM DIFFICILE TOXIN [id number] 15:13:00 Test Item Value Reference Range Comments CLOSTRIDIUM DIFFICILE TOXIN, PCR (BEAKER) (test Not Detected Not Detected kosb=8657) This qualitative real-time polymerase chain reaction assay [...] a positive result is not recommended.BLOOD GAS, [id number] 11:03:00 Test Item Value Reference Range Comments PH ARTERIAL (BEAKER) (test kxhe=110) 7.38 7.35-7.45 PCO2 ARTERIAL (BEAKER) (test eqgk=606) 28 mmHg 35-45 PO2 ARTERIAL (BEAKER) (test ogfd=394) 95 mmHg 80-90 O2 SATURATION ARTERIAL (BEAKER) (test rjub=704) 97.4 % 96.0-97.0 HCO3 ARTERIAL (BEAKER) (test plmr=182) 16 mmol/L 21-29 BASE EXCESS ARTERIAL (BEAKER) (test vfij=666) -7.2 mmol/L -2.0-3.0 PATIENT TEMPERATURE (BEAKER) (test lenu=0819) 36.5 C FIO2 (BEAKER) (test cmni=5701) 21.0 % BASIC METABOLIC [id number] 05:14:00 Test Item Value Reference Range Comments SODIUM (BEAKER) (test 136 meq/L 136-145 vwaf=598) POTASSIUM (BEAKER) (test 3.9 meq/L 3.5-5.1 gdgx=768) CHLORIDE (BEAKER) (test 111 meq/L 98-107 vzep=453) CO2 (BEAKER) (test 13 meq/L 22-29 ictr=429) BLOOD UREA NITROGEN 20 mg/dL 7-21 (BEAKER) (test eebb=993) CREATININE (BEAKER) (test 2.70 mg/dL 0.57-1.25 zvys=249) GLUCOSE RANDOM (BEAKER) 77 mg/dL 70-105 (test rpjo=001) CALCIUM (BEAKER) (test 9.3 mg/dL 8.4-10.2 nstz=485) EGFR (BEAKER) (test 25 mL/min/1.73 sq m ESTIMATED GFR IS NOT okpj=3569) ACCURATE CREATININE CLEARANCE IN PREDICTING GLOMERULAR FILTRATION RATE. ESTIMATED GFR IS NOT APPLICABLE FOR DIALYSIS PATIENTS. PTH, [id number] 05:03:00 Test Item Value Reference Range Comments PARATHYROID HORMONE INTACT (BEAKER) (test 41.8 pg/mL 8.5-72.5 ggcw=470) BASIC METABOLIC [id number] 07:10:00 Test Item Value Reference Range Comments SODIUM (BEAKER) (test 136 meq/L 136-145 nxbt=665) POTASSIUM (BEAKER) (test 3.4 meq/L 3.5-5.1 olqf=509) CHLORIDE (BEAKER) (test 109 meq/L 98-107 nlpz=567) CO2 (BEAKER) (test 15 meq/L 22-29 vvao=075) BLOOD UREA NITROGEN 23 mg/dL 7-21 (BEAKER) (test maew=276) CREATININE (BEAKER) (test 3.91 mg/dL 0.57-1.25 karw=621) GLUCOSE RANDOM (BEAKER) 79 mg/dL 70-105 (test twbf=994) CALCIUM (BEAKER) (test 8.9 mg/dL 8.4-10.2 bbcv=722) EGFR (BEAKER) (test 16 mL/min/1.73 sq m ESTIMATED GFR IS NOT cpnl=4070) ACCURATE CREATININE CLEARANCE IN PREDICTING GLOMERULAR FILTRATION RATE. ESTIMATED GFR IS NOT APPLICABLE FOR DIALYSIS PATIENTS. SODIUM, RANDOM [id number] 06:58:00 Test Item Value Reference Range Comments SODIUM URINE (BEAKER) (test bbqy=758) 65 meq/L Reference Range: No NormalsPROTHROMBIN [id number] 06:47:00 Test Item Value Reference Range Comments PROTIME (BEAKER) (test ykmr=754) 14.5 seconds 11.7-14.7 INR (BEAKER) (test ktui=794) 1.1 <=5.9 RECOMMENDED COUMADIN/WARFARIN INR THERAPY RANGESSTANDARD DOSE: 2.0 - 3.0 Includes: PROPHYLAXIS forvenous thrombosis, systemic embolization; TREATMENT for venous thrombosis and/or pulmonary embolus.HIGH RISK: Target INR is 2.5-3.5 for patients with mechanical heart valves.RAPID DRUG SCREEN, [id number] 15: 43:00 Test Item Value Reference Range Comments BARBITURATE URINE (BEAKER) (test vjfu=861) Negative Negative BENZODIAZEPINE SCREEN URINE (BEAKER) (test Positive Negative apvl=817) COCAINE (METAB.) SCREEN (BEAKER) (test bqdp=8626) Negative Negative METHADONE SCREEN (BEAKER) (test yilr=3133) Negative Negative OPIATE SCREEN URINE (BEAKER) (test syvt=854) Negative Negative CANNABINOID SCREEN URINE (BEAKER) (test rytp=295) Negative Negative AMPH/METHAMPH SCREEN (BEAKER) (test xnbv=8518) Negative Negative PHENCYCLIDINE SCREEN URINE (BEAKER) (test yjez=323) Negative Negative OXYCODONE SCREEN URINE (BEAKER) (test rthu=8220) Negative Negative DRUG CUTOFF CONC.Cocaine 300 ng/mL Cannabinoid 50 ng/mL Benzodiazepine 200 ng/mLBarbiturate 200 ng/ mLPhencyclidine 25 ng/mLOpiate 300 ng/mLMethadone 300 ng/mLAmphetamine/ 1000 ng/mL MethamphetamineOxycodone 300 ng/mLThis assay provides an unconfirmed qualitative test result for the clinical management of patients in emergency situations. Chain of custody not maintained. Some igtk-iav-hfbqalb medications, as well as adulterants, may cause inaccurate results. Clinical correlation should be applied. A more comprehensive drug screen or confirmation of a detected drug may be performed upon request.URINE [id number] 14:33:00 Test Item Value Reference Range Comments CULTURE (BEAKER) (test cnff=1980) No growth BASIC METABOLIC [id number] 08:09:00 Test Item Value Reference Range Comments SODIUM (BEAKER) (test 136 meq/L 136-145 guui=582) POTASSIUM (BEAKER) (test 3.5 meq/L 3.5-5.1 Specimen slightly gwye=951) hemolyzed CHLORIDE (BEAKER) (test 107 meq/L 98-107 mlnl=434) CO2 (BEAKER) (test 15 meq/L 22-29 znyl=913) BLOOD UREA NITROGEN 25 mg/dL 7-21 (BEAKER) (test wfij=236) CREATININE (BEAKER) (test 4.75 mg/dL 0.57-1.25 Specimen slightly remd=435) hemolyzed GLUCOSE RANDOM (BEAKER) 74 mg/dL 70-105 (test qqys=864) CALCIUM (BEAKER) (test 8.5 mg/dL 8.4-10.2 aacr=929) EGFR (BEAKER) (test 13 mL/min/1.73 sq m ESTIMATED GFR IS NOT fuus=2794) ACCURATE CREATININE CLEARANCE IN PREDICTING GLOMERULAR FILTRATION RATE. ESTIMATED GFR IS NOT APPLICABLE FOR DIALYSIS PATIENTS. CBC W/PLT COUNT & AUTO [id number] 06:38:00 Test Item Value Reference Range Comments WHITE BLOOD CELL COUNT (BEAKER) (test fead=019) 9.9 K/ L 3.5-10.5 RED BLOOD CELL COUNT (BEAKER) (test qzsd=106) 4.01 M/ L 4.63-6.08 HEMOGLOBIN (BEAKER) (test zpon=404) 13.2 GM/DL 13.7-17.5 HEMATOCRIT (BEAKER) (test ayra=934) 38.1 % 40.1-51.0 MEAN CORPUSCULAR VOLUME (BEAKER) (test jssy=182) 95.0 fL 79.0-92.2 MEAN CORPUSCULAR HEMOGLOBIN (BEAKER) (test 32.9 pg 25.7-32.2 fffr=867) MEAN CORPUSCULAR HEMOGLOBIN CONC (BEAKER) (test 34.6 GM/DL 32.3-36.5 jimw=948) RED CELL DISTRIBUTION WIDTH (BEAKER) (test 13.1 % 11.6-14.4 wvuh=920) PLATELET COUNT (BEAKER) (test fiha=706) 121 K/CU MM 150-450 MEAN PLATELET VOLUME (BEAKER) (test gykh=595) 10.1 fL 9.4-12.4 NUCLEATED RED BLOOD CELLS (BEAKER) (test 0 /100 WBC 0-0 ktrq=434) NEUTROPHILS RELATIVE PERCENT (BEAKER) (test 73 % hkju=359) LYMPHOCYTES RELATIVE PERCENT (BEAKER) (test 17 % zcii=847) MONOCYTES RELATIVE PERCENT (BEAKER) (test 8 % ucgs=645) EOSINOPHILS RELATIVE PERCENT (BEAKER) (test 2 % ovqp=913) BASOPHILS RELATIVE PERCENT (BEAKER) (test 0 % yomc=501) NEUTROPHILS ABSOLUTE COUNT (BEAKER) (test 7.25 K/ L 1.78-5.38 ywtq=292) LYMPHOCYTES ABSOLUTE COUNT (BEAKER) (test 1.66 K/ L 1.32-3.57 vhkj=902) MONOCYTES ABSOLUTE COUNT (BEAKER) (test 0.76 K/ L 0.30-0.82 uwny=265) EOSINOPHILS ABSOLUTE COUNT (BEAKER) (test 0.19 K/ L 0.04-0.54 bowb=885) BASOPHILS ABSOLUTE COUNT (BEAKER) (test 0.03 K/ L 0.01-0.08 wegl=971) IMMATURE GRANULOCYTES-RELATIVE PERCENT (BEAKER) 0 % 0-1 (test rjpv=9986) U/S, RENAL, [id number] 22:34:00Reason for exam:->acute kidney injuryFINAL REPORT Renal [...] no evidence of hydronephrosis. Signed: Zion Jack Verified Date/Time: 2016 22:34:25 Reading Location:[facility] [id number] Consult Reading Room MR, BRAIN, WITHOUT [id number] 19:18:00Reason for exam:->Stroke evaluationFINAL REPORT MRI Brain [...] and for possible seizure foci. Signed: Wicho Nelson Verified Date/Time: 04/17/2017 19:18:34 Reading Location: [facility] Radiology Reading Room EEG MONITORING WITH VIDEO RECORDING EACH 24 [id number] 18:01:00DATE OF TEST: 04/17/2017 DATE OF REPORT 04/17/2017 ACC: [id number] EE Start time: 16:42 Stop time: 18: 44 ICD-10: R56.9 CPT Code: 17402 HISTORY: 51 y/o woman with history of [...] Shahnaz Davis MD Neurophysiology Attending URINALYSIS W/ [id number] 11:57:00 Test Item Value Reference Range Comments COLOR (BEAKER) (test czwv=830) Light Yellow CLARITY (BEAKER) (test jglh=284) Clear SPECIFIC GRAVITY UA (BEAKER) (test kicm=308) 1.006 1.001-1.035 PH UA (BEAKER) (test yskf=989) 6.0 5.0-8.0 PROTEIN UA (BEAKER) (test tbxk=093) 30 mg/dL Negative GLUCOSE UA (BEAKER) (test qikx=868) Negative Negative KETONES UA (BEAKER) (test qoxo=343) Negative Negative BILIRUBIN UA (BEAKER) (test ziyg=375) Negative Negative BLOOD UA (BEAKER) (test iddw=323) Small Negative NITRITE UA (BEAKER) (test pffs=288) Negative Negative LEUKOCYTE ESTERASE UA (BEAKER) (test lhkz=582) Large Negative UROBILINOGEN UA (BEAKER) (test jvmc=906) 0.2 mg/dL 0.2-1.0 RBC UA (BEAKER) (test ejrb=070) 7 /HPF WBC UA (BEAKER) (test izkq=451) 21 /HPF BACTERIA (BEAKER) (test hngb=003) Occasional SQUAMOUS EPITHELIAL (BEAKER) (test zorh=258) < /HPF URIC ACID CRYSTALS (BEAKER) (test gxqw=7261) Rare SOURCE(BEAKER) (test ckku=4456) Urine, Cooper EOSINOPHIL SMEAR, [id number] 11:56:00 Test Item Value Reference Range Comments EOSINOPHIL SMEAR, URINE (BEAKER) (test No EOS seen No EOS seen vook=1364) CREATININE, RANDOM [id number] 11:24:00 Test Item Value Reference Range Comments CREATININE URINE (BEAKER) (test vyoq=256) 69.7 mg/dL Reference Range: No NormalsSODIUM, RANDOM [id number] 11:24:00 Test Item Value Reference Range Comments SODIUM URINE (BEAKER) (test xfkj=917) 58 meq/L Reference Range: No NormalsUREA NITROGEN, RANDOM [id number] 11:24:00 Test Item Value Reference Range Comments UREA NITROGEN URINE (BEAKER) (test bqgo=473) 172 mg/dL Reference Range: No NormalsCREATINE KINASE (CK)2017-04-17 11:06:00 Test Item Value Reference Range Comments CREATINE KINASE TOTAL (BEAKER) (test tnjm=009) 136 U/L 29-200 BASIC METABOLIC [id number] 04:53:00 Test Item Value Reference Range Comments SODIUM (BEAKER) (test 137 meq/L 136-145 oszr=586) POTASSIUM (BEAKER) (test 3.4 meq/L 3.5-5.1 kpcy=708) CHLORIDE (BEAKER) (test 105 meq/L 98-107 fqvp=338) CO2 (BEAKER) (test 21 meq/L 22-29 rrty=198) BLOOD UREA NITROGEN 19 mg/dL 7-21 (BEAKER) (test wgng=003) CREATININE (BEAKER) (test 3.75 mg/dL 0.57-1.25 avmv=834) GLUCOSE RANDOM (BEAKER) 100 mg/dL 70-105 (test vvqx=587) CALCIUM (BEAKER) (test 8.6 mg/dL 8.4-10.2 qxlp=916) EGFR (BEAKER) (test 17 mL/min/1.73 sq m ESTIMATED GFR IS NOT thxc=4692) ACCURATE CREATININE CLEARANCE IN PREDICTING GLOMERULAR FILTRATION RATE. ESTIMATED GFR IS NOT APPLICABLE FOR DIALYSIS PATIENTS. CBC W/PLT COUNT & AUTO [id number] 04:19:00 Test Item Value Reference Range Comments WHITE BLOOD CELL COUNT (BEAKER) (test hmbk=212) 12.0 K/ L 3.5-10.5 RED BLOOD CELL COUNT (BEAKER) (test dsfm=832) 4.19 M/ L 4.63-6.08 HEMOGLOBIN (BEAKER) (test axrk=932) 13.8 GM/DL 13.7-17.5 HEMATOCRIT (BEAKER) (test wjqj=556) 40.4 % 40.1-51.0 MEAN CORPUSCULAR VOLUME (BEAKER) (test fnkk=928) 96.4 fL 79.0-92.2 MEAN CORPUSCULAR HEMOGLOBIN (BEAKER) (test 32.9 pg 25.7-32.2 xphc=125) MEAN CORPUSCULAR HEMOGLOBIN CONC (BEAKER) (test 34.2 GM/DL 32.3-36.5 xuba=613) RED CELL DISTRIBUTION WIDTH (BEAKER) (test 13.4 % 11.6-14.4 gzcz=930) PLATELET COUNT (BEAKER) (test ujwc=563) 118 K/CU MM 150-450 MEAN PLATELET VOLUME (BEAKER) (test sdmz=742) 9.5 fL 9.4-12.4 NUCLEATED RED BLOOD CELLS (BEAKER) (test 0 /100 WBC 0-0 mtbf=073) NEUTROPHILS RELATIVE PERCENT (BEAKER) (test 77 % hgev=591) LYMPHOCYTES RELATIVE PERCENT (BEAKER) (test 15 % nqet=144) MONOCYTES RELATIVE PERCENT (BEAKER) (test 7 % hqhu=320) EOSINOPHILS RELATIVE PERCENT (BEAKER) (test 1 % cgcv=763) BASOPHILS RELATIVE PERCENT (BEAKER) (test 0 % rgrc=892) NEUTROPHILS ABSOLUTE COUNT (BEAKER) (test 9.20 K/ L 1.78-5.38 xmpj=096) LYMPHOCYTES ABSOLUTE COUNT (BEAKER) (test 1.78 K/ L 1.32-3.57 rtbe=239) MONOCYTES ABSOLUTE COUNT (BEAKER) (test 0.82 K/ L 0.30-0.82 goop=268) EOSINOPHILS ABSOLUTE COUNT (BEAKER) (test 0.12 K/ L 0.04-0.54 rppj=929) BASOPHILS ABSOLUTE COUNT (BEAKER) (test 0.04 K/ L 0.01-0.08 qpfx=934) IMMATURE GRANULOCYTES-RELATIVE PERCENT (BEAKER) 0 % 0-1 (test qwig=9318) EEG MONITORING WITH VIDEO RECORDING EACH 24 [id number] 17:57:00DATE OF TEST : 04/16/2017DATE OF REPORT 04/16/2017 ACC: [id number]: Start time: 08: 42 Stop time: 16:42ICD-10: R56.9CPT Code: 03138QKOMKDW: 51 y/o woman with history of epilepsy [...] agree with the details of this report.Phoebe Hassan MDEpilepsy Attending EEG AWAKE/ASLEEP AND [id number] 13:27:00Reason for exam:->status epilepticusDATE OF TEST: DATE OF REPORT 04/16/2017 ACC: [id number] EEStart time: 08:21 Stop time: 08:42ICD-10: R56.9CPT Code: 11985UABEKYY: 51 y/o woman with history of epilepsy [...] agree with the details of this report.Phoebe Hassan MDEpilepsy Attending HEPATIC FUNCTION [id number] 12:59:00 Test Item Value Reference Range Comments TOTAL PROTEIN (BEAKER) (test 8.0 gm/dL 6.0-8.3 Specimen moderately hemolyzed iuhs=624) ALBUMIN (BEAKER) (test 3.8 g/dL 3.5-5.0 Specimen moderately hemolyzed ikmv=0914) BILIRUBIN TOTAL (BEAKER) (test 0.3 mg/dL 0.2-1.2 Specimen moderately hemolyzed ocaq=485) BILIRUBIN DIRECT (BEAKER) 0.1 mg/dL 0.1-0.5 Specimen moderately hemolyzed (test uglw=767) ALKALINE PHOSPHATASE (BEAKER) 79 U/L 40-150 (test vpqi=142) AST (SGOT) (BEAKER) (test 34 U/L 5-34 Specimen moderately hemolyzed zmwb=809) ALT (SGPT) (BEAKER) (test 30 U/L 6-55 Specimen moderately hjcw=439) hemolyzed RAD, CHEST, 1 VIEW, NON [id number] 09:16:00Reason for exam:-> intubatedShould this be performed at the bedside?->YesFINAL REPORT Chest two views AP 04/16/2017 9:15 AM CLINICAL INDICATION: intubated COMPARISON: None available IMPRESSION: Support hardware is in satisfactory radiographic position. Cardiomediastinal contours are within normal limits. There is central pulmonary vasculature congestion without remarkable peripheral edema. There are streaky foci of atelectasis bilaterally. Superimposed pneumonia should be excluded clinically. Signed: Rogerio Doe Verified Date/Time: 04/16/2017 09:16:32 Reading Location: [facility] Radiology Reading Room VITAMIN [id number] 07:31:00 Test Item Value Reference Range Comments VITAMIN B12 (BEAKER) (test vtqn=919) 450 pg/mL 213-816 FOLATE, [id number] 07:31:00 Test Item Value Reference Range Comments FOLATE (BEAKER) (test lana=420) 8.0 ng/mL >=7.0 URINALYSIS W/ [id number] 07:09:00 Test Item Value Reference Range Comments COLOR (BEAKER) (test kaui=951) Light Yellow CLARITY (BEAKER) (test rfil=219) Hazy SPECIFIC GRAVITY UA (BEAKER) (test wyys=089) 1.008 1.001-1.035 PH UA (BEAKER) (test bbaj=601) 6.0 5.0-8.0 PROTEIN UA (BEAKER) (test arqw=690) 20 mg/dL Negative GLUCOSE UA (BEAKER) (test xmxk=604) 200 mg/dL Negative KETONES UA (BEAKER) (test syvu=740) Negative Negative BILIRUBIN UA (BEAKER) (test yrzv=388) Negative Negative BLOOD UA (BEAKER) (test odtz=441) Negative Negative NITRITE UA (BEAKER) (test nnrd=964) Negative Negative LEUKOCYTE ESTERASE UA (BEAKER) (test pjds=659) Negative Negative UROBILINOGEN UA (BEAKER) (test xlqa=023) 0.2 mg/dL 0.2-1.0 RBC UA (BEAKER) (test soeu=016) < /HPF WBC UA (BEAKER) (test vhka=154) 1 /HPF BACTERIA (BEAKER) (test mqpl=203) Rare SQUAMOUS EPITHELIAL (BEAKER) (test ehch=952) < /HPF HYALINE CASTS (BEAKER) (test ygfb=813) 8 /LPF SOURCE(BEAKER) (test wqmu=2007) [id number] 05:59:00 Test Item Value Reference Range Comments MAGNESIUM (BEAKER) (test 3.0 mg/dL 1.6-2.6 Specimen moderately hemolyzed gxeb=653) [id number] 05:59:00 Test Item Value Reference Range Comments PHOSPHORUS (BEAKER) (test 3.0 mg/dL 2.3-4.7 Specimen moderately hemolyzed fomg=994) BASIC METABOLIC [id number] 05:59:00 Test Item Value Reference Range Comments SODIUM (BEAKER) (test 137 meq/L 136-145 annx=955) POTASSIUM (BEAKER) (test 3.8 meq/L 3.5-5.1 Specimen moderately wash=016) hemolyzed CHLORIDE (BEAKER) (test 99 meq/L 98-107 wbqm=936) CO2 (BEAKER) (test 23 meq/L 22-29 eohd=039) BLOOD UREA NITROGEN 14 mg/dL 7-21 (BEAKER) (test ecib=235) CREATININE (BEAKER) (test 1.48 mg/dL 0.57-1.25 Specimen moderately laac=192) hemolyzed GLUCOSE RANDOM (BEAKER) 386 mg/dL 70-105 (test apcw=169) CALCIUM (BEAKER) (test 8.0 mg/dL 8.4-10.2 wjqz=615) EGFR (BEAKER) (test 50 mL/min/1.73 sq m ESTIMATED GFR IS NOT ggdv=8538) ACCURATE CREATININE CLEARANCE IN PREDICTING GLOMERULAR FILTRATION RATE. ESTIMATED GFR IS NOT APPLICABLE FOR DIALYSIS PATIENTS. PROTHROMBIN [id number] 05:33:00 Test Item Value Reference Range Comments PROTIME (BEAKER) (test xgrr=093) 15.7 seconds 11.7-14.7 INR (BEAKER) (test emni=515) 1.3 <=5.9 RECOMMENDED COUMADIN/WARFARIN INR THERAPY RANGESSTANDARD DOSE: 2.0 - 3.0 Includes: PROPHYLAXIS forvenous thrombosis, systemic embolization; TREATMENT for venous thrombosis and/or pulmonary embolus.HIGH RISK: Target INR is 2.5-3.5 for patients with mechanical heart valves.BLOOD GAS, [id number] 05:31:00 Test Item Value Reference Range Comments PH ARTERIAL (BEAKER) (test eaul=251) 7.34 7.35-7.45 PCO2 ARTERIAL (BEAKER) (test lzjb=228) 43 mmHg 35-45 PO2 ARTERIAL (BEAKER) (test qhmp=766) 123 mmHg 80-90 O2 SATURATION ARTERIAL (BEAKER) (test gxje=865) 98.2 % 96.0-97.0 HCO3 ARTERIAL (BEAKER) (test gbxf=487) 22 mmol/L 21-29 BASE EXCESS ARTERIAL (BEAKER) (test cgca=026) -3.2 mmol/L -2.0-3.0 PATIENT TEMPERATURE (BEAKER) (test efwt=4311) 37.2 C FIO2 (BEAKER) (test zket=1391) 60.0 % CBC W/PLT COUNT & AUTO [id number] 05:08:00 Test Item Value Reference Range Comments WHITE BLOOD CELL COUNT (BEAKER) (test kxex=780) 16.2 K/ L 3.5-10.5 RED BLOOD CELL COUNT (BEAKER) (test qlqj=217) 4.53 M/ L 4.63-6.08 HEMOGLOBIN (BEAKER) (test fwtd=155) 14.9 GM/DL 13.7-17.5 HEMATOCRIT (BEAKER) (test ahng=010) 43.7 % 40.1-51.0 MEAN CORPUSCULAR VOLUME (BEAKER) (test doud=072) 96.5 fL 79.0-92.2 MEAN CORPUSCULAR HEMOGLOBIN (BEAKER) (test 32.9 pg 25.7-32.2 udft=630) MEAN CORPUSCULAR HEMOGLOBIN CONC (BEAKER) (test 34.1 GM/DL 32.3-36.5 dwuq=281) RED CELL DISTRIBUTION WIDTH (BEAKER) (test 13.2 % 11.6-14.4 tids=685) PLATELET COUNT (BEAKER) (test fiab=369) 127 K/CU MM 150-450 MEAN PLATELET VOLUME (BEAKER) (test azxa=425) 10.0 fL 9.4-12.4 NUCLEATED RED BLOOD CELLS (BEAKER) (test 0 /100 WBC 0-0 unjp=424) NEUTROPHILS RELATIVE PERCENT (BEAKER) (test 84 % fjhu=480) LYMPHOCYTES RELATIVE PERCENT (BEAKER) (test 7 % tbhi=955) MONOCYTES RELATIVE PERCENT (BEAKER) (test 9 % jekt=541) EOSINOPHILS RELATIVE PERCENT (BEAKER) (test 0 % siqg=212) BASOPHILS RELATIVE PERCENT (BEAKER) (test 0 % nsqr=052) NEUTROPHILS ABSOLUTE COUNT (BEAKER) (test 13.58 K/ L 1.78-5.38 qnnm=534) LYMPHOCYTES ABSOLUTE COUNT (BEAKER) (test 1.06 K/ L 1.32-3.57 esko=361) MONOCYTES ABSOLUTE COUNT (BEAKER) (test 1.38 K/ L 0.30-0.82 vpbj=781) EOSINOPHILS ABSOLUTE COUNT (BEAKER) (test 0.01 K/ L 0.04-0.54 tzpq=840) BASOPHILS ABSOLUTE COUNT (BEAKER) (test 0.02 K/ L 0.01-0.08 umjg=849) IMMATURE GRANULOCYTES-RELATIVE PERCENT (BEAKER) 1 % 0-1 (test npij=8379)
[2018-12-27] MEDS ORDERED: FOSPHENYTOIN PE 1,000 MG in NA CHLORIDE 0.9% 100 ML IV ONE (12:00)
[2018-12-27 12:06] LABS: Barbiturates NEGATIVE (NEGATIVE); Benzodiazepines NEGATIVE (NEGATIVE); Cocaine NEGATIVE (NEGATIVE); METHAMPHETAM NEGATIVE (NEGATIVE); Methadone NEGATIVE (NEGATIVE); Opiates NEGATIVE (NEGATIVE); Phencyclidine NEGATIVE (NEGATIVE); THC Cannibis NEGATIVE (NEGATIVE)
[2018-12-27 12:22] LABS: Urine Blood 2+ (NEG); Urine Glucose NEGATIVE (NEG); Urine Protein 3+ (NEG); Urine pH 5.5 (5.0-7.0)
--- NOTE | 2018-12-27 12:28 | RAD REPORT ---
EXAM DESCRIPTION: RAD - Chest Single View - 12/27/2018 11:59 am CLINICAL HISTORY: Seizure, shortness of breath COMPARISON: February 2018 TECHNIQUE: AP portable chest image was obtained 1156 hours . FINDINGS: Lungs are clear. Lung markings are similar to comparison. Heart and vasculature are normal . No measurable pleural effusion and no pneumothorax. No acute bony abnormality seen. No acute aortic findings suspected. IMPRESSION: No acute cardiopulmonary process. No significant change from comparison.
[2018-12-27 12:31] LABS: Hematocrit 52.3 % (39.6-49.0); Lymphocytes % 11.6 % (15.3-44.8); MPV 8.3 fL (7.6-11.3); RBC Red Blood Cell Count 4.78 M/uL (4.33-5.43)
[2018-12-27 12:32] LABS: Protime INR 0.89
--- NOTE | 2018-12-27 12:33 | EKG ---
Test Date: 2018-12-27 Test Time: 11:59:15 Extracorporeal Technician: SHADI MEASUREMENT RESULTS: Intervals: Rate: 126 RI: 138 QRSD: 78 QT: 318 QTc: 460 [place]: P: 77 RI: 138 QRS: 32 T: 70 INTERPRETIVE STATEMENTS: Sinus tachycardia with premature supraventricular complexes Otherwise normal ECG Compared to ECG 10/12/2018 08:03:27 Atrial premature complex(es) now present Incomplete right bundle-branch block no longer present Electronically Signed On 12-27-18 12:32:31 CDT by Bill Clark
--- NOTE | 2018-12-27 12:53 | RAD REPORT ---
EXAM DESCRIPTION: CT - Head Brain Wo Cont - 12/27/2018 12:41 pm CLINICAL HISTORY: Seizure, transient alteration of awareness. COMPARISON: CT head February 2018 TECHNIQUE: Axial 5 mm thick images of the head were obtained without IV contrast. All CT scans are performed using dose optimization technique as appropriate and may include automated exposure control or mA/KV adjustment according to patient size. FINDINGS: No intracranial hemorrhage, mass, edema or shift of mid-line structures. No acute infarcti on changes seen. No abnormal extra-axial fluid collections. Patient has volume loss that is greater t grant typically seen at this age. There are chronic ischemic changes as well. Ventricles are in proport ion to any volume loss. Intracranial findings are similar to comparison. Mastoid air cells are clear. No paranasal sinus air-fluid levels. No acute bony findings. IMPRESSION: No acute intracranial finding seen. Patient has atrophy and chronic ischemic change greater than typically seen at this age. Intracranial findings are stable from comparison.
[2018-12-27 13:11] LABS: ALT/SGPT 48 U/L (12-78); AST/SGOT 54 U/L (15-37); Albumin 3.9 g/dL (3.4-5.0); Alkaline Phosphatase 96 U/L (45-117); BUN Blood Urea Nitrogen 8 mg/dL (7-18); Bilirubin Direct < 0.1 mg/dL (0-0.2); Bilirubin Total 0.2 mg/dL (0.2-1.0); Glucose Level 142 mg/dL (74-106); NT PRO-BNP 335 pg/mL (<125); Potassium 4.7 mmol/L (3.5-5.1); Protein, Total 9.2 g/dL (6.4-8.2); Sodium Level 148 mmol/L (136-145); Troponin (Emerg Dept Use Only) < 0.02 ng/mL (0.0-0.045)
[2018-12-27 13:15] LABS: Bicarbonate 7 mmol/L (21-32); Magnesium 3.8 mg/dL (1.8-2.4)
[2018-12-27 13:22] LABS: Blood Morphology Comment NOTED (NOT SEEN); Macrocytosis 1+; Platelet Estimate ADEQ
[2018-12-27 16:11] LABS: Potassium 4.2 mmol/L (3.5-5.1)
--- NOTE | 2018-12-27 17:20 | EDPHYS ---
Physician Documentation [facility] Name: Karlos Leblanc Age: 53 yrs Sex: Male : 1965 Arrival Date: 12/27/2018 Time: 11:32 Bed 2 Private MD: ED Physician Jordan Austin HPI: 12/27 11:44 This 53 yrs old Male presents to ER via EMS with complaints of Seizure. kdr 11:44 The patient presents with a history of multiple seizures, a total of 2, the episode(s) kdr was witnessed, by a bystander. Character of seizure(s): Loss of consciousness: the patient experienced loss of consciousness, Motor activity: generalized, Incontinence: none, Apnea: it is not know whether or not the patient experienced apnea, Circulation: it is unknown whether or not the patient experienced a disturbance in pulse, Eye movements: are unknown. Seizure onset: just prior to arrival. Context: the seizure(s) was witnessed, by a bystander, occurred Bank, occurred while the patient was Unknown. Seizure Hx: Detail unknown - no apparent seizure meds but he may have a seizure history. Associated injury: The patient did not suffer any apparent associated injury. EMS care: none. Current symptoms: decreased level of consciousness. It is unknown whether or not the patient has had similar symptoms in the past. It is unknown whether or not the patient has recently seen a physician. 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 - Social history:: Smoking status: Patient uses tobacco products, unknown amount chewing tobacco. - Ebola Screening: : No symptoms or risks identified at this time. ROS: 11:44 Constitutional: Unoobtainable secondary to AMS/Post-ictal Cardiovascular: Negative for kdr chest pain, palpitations, and edema, Respiratory: Negative for shortness of breath, cough, wheezing, and pleuritic chest pain, Abdomen/GI: Negative for abdominal pain, nausea, vomiting, diarrhea, and constipation, Back: Negative for injury and pain, MS/Extremity: Negative for injury and deformity, Skin: Negative for injury, rash, and discoloration. 11:44 Neuro: Positive for altered mental status, loss of consciousness, seizure activity, syncope, Negative for dizziness, gait disturbance, headache, hearing loss. Exam: 11:44 Constitutional: This is a well developed, well nourished patient who is seizing upon kdr my arrival Head/Face: Normocephalic, atraumatic. Eyes: Pupils equal round and reactive to light, extra-ocular motions intact. Lids and lashes normal. Conjunctiva and sclera are non-icteric and not injected. Cornea within normal limits. Periorbital areas with no swelling, redness, or edema. Neck: Trachea midline, no thyromegaly or masses palpated, and no cervical lymphadenopathy. Supple, full range of motion without nuchal rigidity, or vertebral point tenderness. No Meningismus. Chest/axilla: Normal chest wall appearance and motion. Nontender with no deformity. No lesions are appreciated. Cardiovascular: Regular rate and rhythm with a normal S1 and S2. No gallops, murmurs, or rubs. Normal PMI, no JVD. No pulse deficits. Respiratory: Lungs have equal breath sounds bilaterally, clear to auscultation and percussion. No rales, rhonchi or wheezes noted. No increased work of breathing, no retractions or nasal flaring. Abdomen/GI: Soft, non-tender, with normal bowel sounds. No distension or tympany. No guarding or rebound. No evidence of tenderness throughout. Back: No spinal tenderness. No costovertebral tenderness. Full range of motion. Skin: Warm, dry with normal turgor. Normal color with no rashes, no lesions, and no evidence of cellulitis. MS/ Extremity: Pulses equal, no cyanosis. Neurovascular intact. Full, normal range of motion. Vital Signs: 11:32 BP 164 / 88; Pulse 115; Resp 20 S; Temp 98.0(O); Pulse Ox 95% on R/A; aa5 12:00 BP 142 / 74; Pulse 126; Resp 30; Pulse Ox 100% ; bp 13:55 BP 170 / 80; Pulse 114; Resp 19; Pulse Ox 94% on R/A; aj 16:00 BP 161 / 75; Pulse 100; Resp 16; Temp 98; Pulse Ox 95% ; bp Patricia Coma Score: 11:36 Eye Response: spontaneous(4). Verbal Response: inappropriate words(3). Motor Response: bp localizes pain(5). Total: 12. MDM: 17:19 Patient medically screened. kdr 18:39 Data reviewed: vital signs, nurses notes, lab test result(s), radiologic studies. kdr Counseling: I had a detailed discussion with the patient and/or guardian regarding: the historical points, exam findings, and any diagnostic results supporting the discharge/admit diagnosis, lab results, radiology results, the need for outpatient follow up. 12/27 11:43 Order name: Acetaminophen; Complete Time: 13:53 kdr 12/27 11:43 Order name: Basic Metabolic Panel; Complete Time: 13:53 kdr 12/27 11:43 Order name: CBC with Diff; Complete Time: 13:53 kdr 12/27 11:43 Order name: ETOH Level; Complete Time: 13:53 kdr 12/27 11:43 Order name: Hepatic Function; Complete Time: 13:53 kdr 12/27 11:43 Order name: PT-INR; Complete Time: 13:53 kdr 12/27 11:43 Order name: Ptt, Activated; Complete Time: 13:53 kdr 12/27 11:43 Order name: Salicylate; Complete Time: 13:53 kdr 12/27 11:43 Order name: Urine Drug Screen; Complete Time: 12:22 kdr 12/27 11:43 Order name: Magnesium; Complete Time: 13:53 kdr 12/27 11:43 Order name: NT PRO-BNP; Complete Time: 13:53 kdr 12/27 11:43 Order name: Troponin (emerg Dept Use Only); Complete Time: 13:53 kdr 12/27 11:58 Order name: Urine Dipstick--Ancillary (enter results); Complete Time: 13:53 eb 12/27 13:23 Order name: Manual Differential; Complete Time: 13:53 EDMS 12/27 11:43 Order name: EKG; Complete Time: 11:44 kdr 12/27 11:43 Order name: EKG - Nurse/Tech; Complete Time: 12:16 kdr 12/27 11:43 Order name: IV Saline Lock; Complete Time: 11:50 kdr 12/27 11:43 Order name: Labs collected and sent; Complete Time: 11:50 kdr 12/27 11:43 Order name: Urine Dipstick-Ancillary (obtain specimen); Complete Time: 11:50 [facility] 12/27 11:43 Order name: CT Head Brain wo Cont; Complete Time: 13:53 [facility] 12/27 11:43 Order name: XRAY Chest (1 view); Complete Time: 13:53 [facility] 12/27 11:43 Order name: Cardiac monitoring; Complete Time: 11:50 [facility] 12/27 11:43 Order name: O2 Per Protocol; Complete Time: 11:50 [facility] 12/27 11:43 Order name: O2 Sat Monitoring; Complete Time: 11:50 [facility] 12/27 14:30 Order name: Chem 7; Complete Time: 17:11 [facility] 12/27 12:26 Order name: Straight Cath: VO received at 1145; Complete Time: 12:26 aa5 Administered Medications: 11:50 Drug: Ativan 2 mg Route: IVP; Site: right forearm; bp 12:16 Follow up: Response: Anxiety decreased bp 11:55 Drug: CEREbyx 1 grams Route: IVPB; Site: right forearm; bp 12:30 Follow up: IV Status: Completed infusion; IV Intake: 100ml bp 15:01 Drug: NS 0.9% 1000 ml Route: IV; Rate: 1 bolus; Site: right forearm; bp 17:50 Follow up: IV Status: Completed infusion; IV Intake: 1000ml bp 19:05 Drug: Tylenol 1000 mg Route: PO; bp 19:05 Follow up: Response: Medication administered at discharge. bp 19:05 Drug: Zofran 4 mg Route: PO; bp 19:05 Follow up: Response: Medication administered at discharge. bp Disposition: 12/27/18 17:19 Discharged to Home. Impression: Epilepsy and recurrent seizures, Dehydration. - Condition is Stable. - Discharge Instructions: Seizure, Adult, [id number], Dehydration, Adult, Lmhm-gl-[id number]. - Medication Reconciliation Form, Thank You Letter form. - Follow up: Private Physician; When: 2 - 3 days; Reason: If symptoms return, Further diagnostic work-up, Recheck today's complaints, Continuance of care, Re-evaluation by your physician. - Problem is new. - Symptoms have improved. Signatures: Dispatcher [employer] Becka George, RN RN Jordan Khan MD MD kdr Scarlet Washington RN RN aa5 Carlene, Narciso, RN RN bp Corrections: (The following items were deleted from the chart) 19:49 17:19 12/27/2018 17:19 Discharged to Home. Impression: Epilepsy and recurrent seizures; aj Dehydration. Condition is Stable. Forms are Medication Reconciliation Form, Thank You Letter, Antibiotic Education, Prescription Opioid Use. Follow up: Private Physician; When: 2 - 3 days; Reason: If symptoms return, Further diagnostic work-up, Recheck today's complaints, Continuance of care, Re-evaluation by your physician. Problem is new. Symptoms have improved. kdr
--- NOTE | 2018-12-27 17:20 | ER ---
Nurse's Notes [facility] Name: Karlos Leblanc Age: 53 yrs Sex: Male : 1965 Arrival Date: 12/27/2018 Time: 11:32 Bed 2 Private MD: Diagnosis: Epilepsy and recurrent seizures;Dehydration Presentation: 12/27 11:32 Presenting complaint: EMS states: "pt has a seizure witnessed by bank staff". EMS aa5 reports pt was post-ictal upon arrival BP 141/83 and O2 sat 87% RA. Pt now A\\T\\O x person and place and O2 sat 95% RA. Transition of care: patient was not received from another setting of care. Onset of symptoms was December 27, 2018. Care prior to arrival: None. 11:32 Acuity: KENIA 3 aa5 11:32 Method Of Arrival: EMS aa 11:50 Risk Assessment: Do you want to hurt yourself or someone else? Patient reports no bp desire to harm self or others. Initial Sepsis Screen: Does the patient meet any 2 criteria? HR > 90 bpm. No. Patient's initial sepsis screen is negative. Does the patient have a suspected source of infection? No. Patient's initial sepsis screen is negative. Triage Assessment: 11:36 General: Appears distressed, unkempt, Behavior is POST-ICTAL. Pain: Unable to use pain bp scale. Does not appear to understand pain scale. EENT: No deficits noted. Neuro: Level of Consciousness is post ictal. Cardiovascular: No deficits noted. Rhythm is sinus tachycardia. Respiratory: No deficits noted. GI: No signs and/or symptoms were reported involving the gastrointestinal system. : No signs and/or symptoms were reported regarding the genitourinary system. Derm: No deficits noted. Musculoskeletal: No deficits noted. 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 - Social history:: Smoking status: Patient uses tobacco products, unknown amount chewing tobacco. - Ebola Screening: : No symptoms or risks identified at this time. Screenin:30 Abuse screen: Denies threats or abuse. Denies injuries from another. Nutritional bp screening: No deficits noted. Tuberculosis screening: No symptoms or risk factors identified. Fall Risk Fall in past 12 months (25 points). Secondary diagnosis (15 points) seizures, IV access (20 points). Ambulatory Aid- None/Bed Rest/Nurse Assist (0 pts). Gait- Normal/Bed Rest/Wheelchair (0 pts) Mental Status- Overestimates/Forgets Limitations (15 pts.). Total Mota Fall Scale indicates High Risk Score (45 or more points). Fall prevention measures have been instituted. Side Rails Up X 2 Placed Close to Nursing Station Frequent Obs/Assessments Occuring As available patient and family educated on Fall Prevention Program and Strategies. Assessment: 11:51 Reassessment: TONIC CLONIC SZ ACTIVITY NOTED, MD AT B/S. DURATION <1 MINUTE. bp 12:19 Reassessment: PT AO4 BUT UNCOOPERATIVE, DC OWN PIV AND MONITORING EQUIPMENT. bp 13:49 Reassessment: Patient is awake and alert and oriented x 4. Requested water. Swallows aj water with no difficulty. 15:02 Reassessment: PT AMBULATORY, AOx4, NO FURTHER SZ ACTIVITY NOTED. bp 17:00 Reassessment: ALL CURRENT ORDERS COMPLETE, DISPO PENDING BMP REPEAT. bp 17:50 Reassessment: PT D/C ON HOLD PENDING TRANSPORT. bp 18:55 Reassessment: PT DEVORA WITH FAMILY. bp Vital Signs: 11:32 BP 164 / 88; Pulse 115; Resp 20 S; Temp 98.0(O); Pulse Ox 95% on R/A; aa5 12:00 BP 142 / 74; Pulse 126; Resp 30; Pulse Ox 100% ; bp 13:55 BP 170 / 80; Pulse 114; Resp 19; Pulse Ox 94% on R/A; aj 16:00 BP 161 / 75; Pulse 100; Resp 16; Temp 98; Pulse Ox 95% ; bp [place] Coma Score: 11:36 Eye Response: spontaneous(4). Verbal Response: inappropriate words(3). Motor Response: bp localizes pain(5). Total: 12. ED Course: 11:32 Patient arrived in ED. aa5 11:32 Arm band placed on. aa5 11:32 Seizure precautions initiated. bp 11:33 Narciso Concepcion, TAVO is Primary Nurse. bp 11:35 Triage completed. aa5 11:40 Jordan Austin MD is Attending Physician. kdr 11:43 Missed attempt(s): 20 gauge in right forearm. Bleeding controlled, band aid applied, ms catheter tip intact. 11:45 Inserted saline lock: 18 gauge in right forearm, using aseptic technique. Blood bp collected. 11:47 Straight cath inserted, using sterile technique, 16 Fr. Specimen obtained. Returned aa5 cloudy urine. Patient tolerated well. 11:57 X-ray completed. Portable x-ray completed in exam room. Patient tolerated procedure ml well. 11:58 XRAY Chest (1 view) In Process Unspecified. EDMS 12:06 EKG done, by quality control technician. reviewed by Jordan Austin MD. at1 12:09 Radiology exam delayed due to pt getting IV meds at this time; will call when ready. vm2 12:13 Patient has correct armband on for positive identification. Placed in gown. Bed in low bp position. Call light in reach. Side rails up X2. 12:41 CT Head Brain wo Cont In Process Unspecified. EDMS 17:50 No provider procedures requiring assistance completed. IV discontinued, intact, bp bleeding controlled, No redness/swelling at site. Pressure dressing applied. Administered Medications: 11:50 Drug: Ativan 2 mg Route: IVP; Site: right forearm; bp 12:16 Follow up: Response: Anxiety decreased bp 11:55 Drug: CEREbyx 1 grams Route: IVPB; Site: right forearm; bp 12:30 Follow up: IV Status: Completed infusion; IV Intake: 100ml bp 15:01 Drug: NS 0.9% 1000 ml Route: IV; Rate: 1 bolus; Site: right forearm; bp 17:50 Follow up: IV Status: Completed infusion; IV Intake: 1000ml bp 19:05 Drug: Tylenol 1000 mg Route: PO; bp 19:05 Follow up: Response: Medication administered at discharge. bp 19:05 Drug: Zofran 4 mg Route: PO; bp 19:05 Follow up: Response: Medication administered at discharge. bp Intake: 12:30 IV: 100ml; Total: 100ml. bp 17:50 IV: 1000ml; Total: 1100ml. bp Outcome: 17:19 Discharge ordered by . kdr 17:50 Discharged to home ambulatory. bp 17:50 Condition: stable 17:50 Discharge instructions given to patient, Instructed on discharge instructions, follow up and referral plans. medication usage, Demonstrated understanding of instructions, follow-up care, medications, Prescriptions given X 1. 19:49 Patient left the ED. aj Signatures: Dispatcher [employer] EDBecka Zuniga, RN RN Jordan Khan MD MD kdr Solis, Maria ms Lopez, Scarlet Burt RN RN aa5 Becka Stafford, roll sheeting cutter EKG Tat1 Vivien Austin 2 Narciso Concepcion RN RN bp Corrections: (The following items were deleted from the chart) 12:04 11:51 GCS: 12, bp bp 12:25 11:30 BP 166 / 83; Pulse 129bpm; Resp 20bpm; Pulse Ox 97%; Temp 98F; 68.04 kg; bp aa5 18:25 17:50 Reassessment: PT D/C HOME AMBULATORY, DX WITH EPILEPSY AND RECURRENT SEIZURES. bp bp
[2018-12-27] MEDS ORDERED: ACETAMINOPHEN 500 MG TAB ONE (19:00)
[2018-12-27] MEDS ORDERED: ONDANSETRON 4 MG (ODT) TAB ONE (19:00)
[2018-12-27 20:00] VITALS: BP 161/75; TEMP 98; O2SAT 95
== END 2018-12-27 19:49 | disposition home or self-care (01) ==
LOC: ER 11:30
DX: G40.909 Epilepsy, unspecified, not intractable, without status epilepticus (principal); E86.0 Dehydration; F90.9 Attention-deficit hyperactivity disorder, unspecified type; I50.9 Heart failure, unspecified; J44.9 Chronic obstructive pulmonary disease, unspecified; I25.2 Old myocardial infarction; C44.90 Unspecified malignant neoplasm of skin, unspecified; Z86.73 Personal history of transient ischemic attack (TIA), and cerebral infarction without residual deficits; Z72.0 Tobacco use
CPT/HCPCS: 93005; 85025; 80048 ×2; 36415; 80320; 83735; 80329 ×2; 85610; 80076; 80307 ×8; 85730; 81003; 84484; 83880; 70450; 71045; Q2009; J7030; 51702; 96361; 96365; 96375; 99285

== ENCOUNTER 2019-02-06 07:53 | Inpatient (IN) | payer OTHER ==
--- OUTSIDE RECORDS SUMMARY | 2019-02-06 07:56 | XMS REPORT | Clinical Summary ---
:1965 [facility] Address [address] [place] [address] Care Team Providers Name Role Phone Unavailable [...] - Hospital Encounter General Internal ArifFermin, Seizures ([facility] ); 10/14/2018 Medicine MD Acute kidney injury ([facility]); Gadicherjamaal, H/O ETOH abuse; Emily Status epilepticus ([facility]) MD Olga 10/12/2018 Travel after 02/05/2018 Social History Tobacco Use Types Packs/Day Years [...] procedure are in the results section. after 02/05/2018 Results EKG-SCANNED (10/16/2018 2:10 PM CDT) Narrative Performed At RHYTHM STRIP - SCAN (10/16/2018 2:10 PM CDT) Narrative Performed At EEG AWAKE AND DROWSY (10/14/2018 1:57 PM CDT) Specimen Narrative Performed At Date(s) of EE10/14/18 GE RIS DATE OF REPORT: 10/14/18 ACC: [id number] EEG Number: [id number] Start time: 13:36 Stop time: 13:57 ICD-10: R56.9 Unspecified Convulsions CPT Code: 89471 EEG: awake and drowsy <40 min HISTORY: [...] of EE10/14/18 DATE OF REPORT: 10/14/18 ACC: [id number] EEG Number: [id number] Start time: 13:36 Stop time: 13:57 ICD-10: R56.9 Unspecified Convulsions CPT Code: 82500 EEG: awake and drowsy <40 min HISTORY: [...] Sodium 133 (L) 136 - 145 meq/L [facility] Potassium 4.1Comment: Specimen slightly 3.5 - 5.1 meq/L [facility] 103 98 - 107 meq/L [facility] CO2 19 (L) 22 - 29 meq/L [facility] BUN 8 7 - 21 mg/dL [facility] Creatinine 0.83Comment: Specimen 0.57 - 1.25 mg/dL [facility] slightly hemolyzed [facility] Glucose 84 70 - 105 mg/dL [facility] Calcium 8.5 8.4 - 10.2 mg/dL [facility] EGFR 97Comment: ESTIMATED GFR IS mL/min/1.73 sq m [facility] NOT ACCURATE [facility] CLEARANCE IN PREDICTING GLOMERULAR FILTRATION RATE. ESTIMATED GFR IS NOT APPLICABLE FOR DIALYSIS PATIENTS. Specimen Blood Performing Organization Address City/State/Zipcode Phone Number [facility] [address] [place] [address] CENTER CBC with platelet count + automated diff (10/13/2018 4:25 AM CDT) WBC 9.7 3.5 - 10.5 K/L [facility] RBC 4.44 (L) 4.63 - 6.08 M/L [facility] Hemoglobin 14.9 13.7 - 17.5 GM/DL [facility] Hematocrit 44.1 40.1 - 51.0 % [facility] MCV 99.3 (H) 79.0 - 92.2 fL [facility] MCH 33.6 (H) 25.7 - 32.2 pg [facility] MCHC 33.8 32.3 - 36.5 GM/DL [facility] RDW 15.2 (H) 11.6 - 14.4 % [facility] Platelets 177 150 - 450 K/CU MM [facility] MPV 9.7 9.4 - 12.4 fL [facility] nRBC 0 0 - 0 /100 WBC [facility] % Neutros 73 % [facility] % Lymphs 16 % [facility] % Monos 11 % [facility] % Eos 0 % [facility] % Baso 0 % [facility] # Neutros 7.05 (H) 1.78 - 5.38 K/L [facility] # Lymphs 1.52 1.32 - 3.57 K/L [facility] # Monos 1.04 (H) 0.30 - 0.82 K/L [facility] # Eos 0.01 (L) 0.04 - 0.54 K/L [facility] # Baso 0.04 0.01 - 0.08 K/L [facility] Immature Granulocytes-Relative 0 0 - 1 % [facility] Specimen Blood Performing Organization Address City/[facility] Phone Number [facility] [address] [place] [address] [phone] [place] Blood Culture - Routine (Right Venipuncture) (10/12/2018 5:31 PM CDT)Only the most recent of2 resultswithin the time period is included. Result No growth in 5 days [facility] Specimen Blood Performing Organization Address City/[facility] Phone Number [address] [address] [place] Vitamin B12 and Folate (10/12/2018 5:28 PM CDT) Vitamin B12 683 213 - 816 pg/mL [facility] Folate >40.0 >=7.0 ng/mL [facility] Specimen Blood Performing Organization Address City/[facility] Phone Number [facility] [address] [place] [phone] [place] Phenytoin level, total and free (10/12/2018 5:28 PM CDT) Phenytoin 13.0 10.0 - 20.0 ug/mL [facility] Dilantin, Free 0.58 (L) 1.00 - 2.00 mcg/ml [facility] Specimen Blood Narrative Performed At Performing Organization Address City/[facility] Phone Number [facility] [address], [address] [place] [address] Phosphorus (10/12/2018 5:28 PM CDT) Phosphorus 4.0 2.3 - 4.7 mg/dL [facility] Specimen Blood Performing Organization Address City/State/Zipcode Phone Number [facility] [address] [place] [address] [phone] [place] Magnesium (10/12/2018 5:28 PM CDT) Magnesium 2.5 1.6 - 2.6 mg/dL [facility] Specimen Blood Performing Organization Address City/[facility]/Zipcode Phone Number [facility] [address] [place] [address] [phone] [place] [address] brain without IV contrast (10/12/2018 4:38 PM CDT) Specimen Narrative Performed At FINAL REPORT [place] head without contrast. Reason for exam: [...] MD Report Verified Date/Time:10/12/2018 16:58:56 Reading Location: [facility] C0[facility] Neuro Reading Room Procedure Note Interface, [...] Report Verified Date/Time: 10/12/2018 16:58:56 Reading Location: [facility] [id number] Neuro Reading Room Performing Organization Address City/State/Zipcode Phone Number [facility] Urinalysis w/Microscopic (10/12/2018 3:59 PM CDT) Color, UA Light Yellow [facility] Clarity, UA Clear [facility] Specific [place], UA 1.007 1.001 - 1.035 [facility] pH, UA 5.5 5.0 - 8.0 [facility] Protein, UA 10 mg/dL (A) Negative [facility] Glucose, UA Negative Negative [facility] Ketones, UA 20 mg/dL (A) Negative [facility] Bilirubin, UA Negative Negative [facility] Blood, UA Trace (A) Negative [facility] Nitrite, UA Negative Negative [facility] Leukocytes, UA Negative Negative [facility] Urobilinogen, UA 0.2 0.2 - 1.0 mg/dL [facility] RBC, UA <1 /HPF [facility] WBC, UA 1 /HPF [facility] Squam Epithel, UA <1 /HPF [facility] Specimen Source Urine, Voided [facility] Specimen Urine Performing Organization Address City/State/Zipcode Phone Number [facility] [address] [place] [address] [phone] CENTER after 02/05/2018 Insurance Payer Benefit Plan / Subscriber ID Type Phone Address Group [employer] - [employer] MED[employer]ARE xxxxxxxx [facility] [place] Contracted [phone] [address] [employer] HMO POS [id number] [place] [address] (Home) [place] [address]
--- OUTSIDE RECORDS SUMMARY | 2019-02-06 08:02 | XMS REPORT | Continuity of Care Document ---
:1965 Author Organization [employer] Care Team Providers Name Role Phone [employer] Unavailable Unavailable Problems Problem Status Onset Classification Date Comments Source Date Reported ANEMIA Active 04/04/20 The 16 [facility] Discharge 03/14/20 03/17/2016 The Diagnosis: Acute 16 [facility] on chronic renal failure Discharge 03/14/20 03/17/2016 The Diagnosis: Anemia 16 [facility] Discharge 03/14/20 03/17/2016 The Diagnosis: 16 [facility] Post-operative pain Discharge 03/14/20 03/17/2016 The Diagnosis: Acute 16 [facility] hypokalemia OTHER Active 03/13/20 The 16 [facility] FOOT GANGRENE Active 01/31/20 The 16 [facility] LEFT FOOT SORES Active 01/31/20 The 16 [facility] Discharge 02/17/20 02/19/2015 The Diagnosis: 15 [facility] Hyperlipidemia Discharge 02/17/20 02/19/2015 The Diagnosis: 15 [facility] Hypertension Discharge 02/17/20 02/19/2015 The Diagnosis: Angina 15 [facility] pectoris CHEST PAIN Active 02/16/20 The 15 [facility] CP Active 02/16/20 The 15 [facility] Discharge 02/10/20 02/12/2015 The Diagnosis: Wrist 15 [facility] sprain LEFT WRIST PAIN Active 02/10/20 The 15 [facility] Discharge 01/24/20 01/26/2015 The Diagnosis: 15 [facility] Epileptic seizure, generalized Discharge 01/24/20 01/26/2015 The Diagnosis: 15 [facility] Cerebral seizure AMS Active 01/24/20 The 15 [facility] WOUND INFECTION V Active 10/21/19 The NECFAS;CHRONIC 14 [facility] OSTEOMY Acute Active Problem 04/08/2016 The osteomyelitis [facility] CHF - Congestive Active Problem 04/08/2016 The heart failure [facility] HTN (Confirmed) Active Problem 04/08/2016 [place] Bronchitis Active Problem 04/08/2016 [place] COPD Active Problem 04/08/2016 [place] Nose bleed Active Problem 04/08/2016 [place] Seizure Active Problem 04/08/2016 [place] H/O candidiasis Active Problem 04/08/2016 [place] H/O amputation of Active Problem 04/08/2016 The lesser toe [facility] Hx of peripheral Active Problem 04/08/2016 The vascular disease [facility] BPH (Confirmed) Active Problem 04/08/2016 [place] CELLULITIS OF Active The FOOT [facility] AC Active The OSTEOMYELITIS-UNS [facility] PEC CHEST PAIN NOS Active [place] GANGRENE, NOT Active The ELSEWHERE [facility] CLASSIFIED ANEMIA, Active The UNSPECIFIED [facility] Medications Medication Details Route Status Patient Ordering Order Source Instructions Provider Date Sodium Chloride IVPB, 150 Active The 0.9% IV ml/hr, PRN, 2015 [facility] Start date: 04/05/16 8:00:00 [employer]IL[employer] W[employer]ER, Duration: 30, 1,000 ml EPINEPHrine 0.5 mg, 0.5 Active The mL, Route: 2015 [facility] IVP, Drug form: INJ, PRN, PRN Other -See Comment, Start date: 04/05/16 7:22:00 [employer], Duration: 30 day, Stop date: 05/05/16 7:21:00 CSTNotes: MEDICATION WASTE Product Size: 1 mg Product Wasted: ___ mg Solu-CORTEF 100 mg, 2 mL, Active The Route: IVP, 2015 [facility] Drug form: PDR/INJ, PRN, PRN Other -See Comment, Start date: 04/05/16 7:22:00 [employer], Duration: 30 day, Stop date: 05/05/16 7:21:00 CSTNotes: (Same as: Solu-CORTEF) Benadryl 50 mg, 1 mL, Active The Route: IVP, 2015 [facility] Drug form: INJ, PRN, PRN Other -See Comment, Start date: 04/05/16 7:22:00 [employer], Duration: 30 day, Stop date: 05/05/16 7:21:00 CSTNotes: (Same as: Benadryl) Sodium Chloride IV, 0 ml/hr, Active The 0.9% IV PRN, PRN Blood 2015 [facility] Transfusion, Start date: 04/05/16 7:21:00 [employer], Duration: 30, 250 ml heparin flush 500 unit, 5 Active The mL, Route: 2015 [facility] IVP, Drug form: SOLN, PRN, PRN Line Flush, Start date: 04/05/16 7:21:00 [employer], Duration: 30 day, Stop date: 05/05/16 7:20:00 CSTNotes: (Same as: Heparin Lock Flush) BD Normal Saline 20 mL, Route: Active The Flush IVP, Drug 2015 [facility] Form: INJ, PRN, PRN Line Flush, Start date: 04/05/16 7:21:00 [employer], Duration: 30 day, Stop date: 05/05/16 7:20:00 CSTNotes: (Same as: BD Posiflush) Benadryl 25 mg, 0.5 mL, Active The Route: IVP, 2015 [facility] Drug form: INJ, Before Transfusion, PRN Blood Transfusion, Start date: 04/05/16 7:21:00 [employer] W[employer]ER, Duration: 30 day, Stop date: 05/05/16 7:20:00 CSTNotes: (Same as: Benadryl) Tylenol 650 mg, 2 tab, Active The Route: PO, 2015 [facility] Drug form: TAB, Before Transfusion, PRN Blood Transfusion, Start date: 04/05/16 7:20:00 [employer] W[employer], Duration: 30 day, Stop date: 05/05/16 7:19:00 CSTNotes: Do not exceed 4 gm/day. (Same as: Tylenol) Acetaminophen 325 1 tab, Route: Inactive The MG / Hydrocodone PO, Drug Form: 2015 [facility] Bitartrate 5 MG TAB, Dosing Oral Tablet [[place] Weight 98.636, 5/325] kg, ONCE, STAT, Start date: 03/14/16 6:34:00 CDT, Stop date: 03/14/16 6:34:00 CDTNotes: (Same as: Sidon 325/5) Do not exceed 4gm/day of acetaminophen. Acetaminophen 300 1 tab, PO, No Longer The MG / Codeine Q4H, PRN Pain, Active 2015 [facility] Phosphate 30 MG X 2 day, # 12 Oral Tablet tab, 0 [Tylenol with Refill(s) Codeine #3] Zofran 4 mg, 2 mL, No Longer The Route: IVP, Active 2015 [facility] Drug form: INJ, ONCE, Dosing Weight 98.636, kg, Priority: STAT, Start date: 03/13/16 23:18:00 CDT, Stop date: 03/13/16 23:18:00 CDTNotes: (Same as: Zofran) MEDICATION WASTE Product Size: 4 mg Product Wasted: ___ mg Dilaudid 0.5 mg, 0.5 No Longer The mL, Route: Active 2015 [facility] IVP, Drug form: INJ, ONCE, Dosing Weight 98.636, kg, Priority: STAT, Start date: 03/13/16 23:18:00 CDT, Stop date: 03/13/16 23:18:00 CDTNotes: Same as: Dilaudid Sodium Chloride 500 mL, 500 No Longer The 0.154 MEQ/ML ml/hr, Infuse Active 2015 [facility] Injectable Over: 1 hr, Solution Route: IV, 500, Drug form: INJ, ONCE, Priority: STAT, Dosing Weight 98.636 kg, Start date: 03/13/16 23:18:00 CDT, Duration: 1 doses or times, Stop date: 03/13/16 23:18:00 CDT Oxycodone 15 mg=3 tab, Active The Hydrochloride 5 MG PO, Q4H, PRN 2015 [facility] Oral Tablet Pain Score 7-10, 0 Refill(s) Oxycodone 15 mg, 3 tab, Inactive The Hydrochloride 5 MG Route: PO, 2015 [facility] Oral Tablet Drug form: TAB, Q4H, Dosing Weight 96.023, kg, PRN Pain Score 7-10, Start date: 02/18/16 8:43:00 CDT, Duration: 30 day, Stop date: 03/19/16 8:42:00 CDTNotes: (Same as: Roxicodone) Ceftriaxone 2 gm, Route: No Longer The IVPB, [id number], Active 2015 [facility] Dosing Weight 96.023, kg, Start date: 02/17/16 15:00:00 CDT, Duration: 30 day, Stop date: 03/17/16 15:00:00 CDTNotes: (Same As: Rocephin). Use with 100 mL NS and infuse over 30 min MEDICATION WASTE Product Size: 2000 mg Product Wasted: ___ mg Albuterol 0.83 NEB, PRN, PRN Active The MG/ML Inhalant Respiratory 2015 [facility] Solution Protocol, 0 Refill(s) chlorhexidine 1 appl, BATHE, Active The gluconate 40 MG/ML Q--W-, 0 2015 [facility] Medicated Liquid Refill(s) Soap tamsulosin 0.4 mg 0.4 mg=1 cap, Active The oral capsule PO, After 2015 [facility] Dinner, 0 Refill(s) fluconazole 100 mg 200 mg=2 tab, Active The oral tablet PO, [id number], 0 2015 [facility] Refill(s) pantoprazole 40 mg 40 mg=1 tab, Active The oral enteric PO, Before 2015 [facility] coated tablet Breakfast, 0 Refill(s) Acetaminophen 325 1 tab, PO, Active The MG / Hydrocodone Q4H, PRN Pain 2015 [facility] Bitartrate 5 MG Score 1-3, 0 Oral Tablet Refill(s) cefTRIAXone + 2 gm, Route: No Longer The sodium chloride IVPB, [id number], Active 2015 [facility] 0.9% INJ 100 mL Dosing Weight 96.023, kg, Start date: 02/15/16 18:00:00 CDT, Duration: 2 day, Stop date: 02/16/16 18:00:00 CDTNotes: (Same As: Rocephin). Use with 100 mL NS and infuse over 30 min MEDICATION WASTE Product Size: 2000 mg Product Wasted: ___ mg Flomax 0.4 mg, 1 cap, No Longer The Route: PO, Active 2015 [facility] Drug form: CAP, After Dinner, Dosing Weight 96.023, kg, Start date: 02/13/16 17:00:00 CDT, Duration: 30 day, Stop date: 03/13/16 17:00:00 CDTNotes: (Same As: Flomax) "Do Not Crush" vancomycin + 1,000 mg, No Longer The sodium chloride Route: IVPB, Active 2015 [facility] 0.9% INJ 250 mL Q24H, Start date: 02/13/16 6:00:00 CDT, Duration: 30 day, Stop date: 03/13/16 6:00:00 CDTNotes: TIME CRITICAL MEDICATION (Same As: Vancocin) Infusion rate 2001 mg: infuse over 2.5 hours MEDICATION WASTE Product Size: 1000 mg Product Wasted: ___ mg Fluconazole 200 mg, 2 tab, No Longer The Route: PO, Active 2015 [facility] Drug form: TAB, [id number], Dosing Weight 96.023, kg, Start date: 02/12/16 16:00:00 CDT, Duration: 30 day, Stop date: 03/12/16 16:00:00 CDTNotes: (Same as: Diflucan) Dilaudid 1.5 mg, 0.75 No Longer The mL, Route: Active 2015 [facility] IVP, Drug form: INJ, Q4H, Dosing Weight 96.023, kg, PRN Pain Score 7-10, Start date: 02/12/16 14:19:00 CDT, Stop date: 03/13/16 14:18:00 CDTNotes: Same as: Dilaudid gabapentin 600 mg, 2 cap, No Longer The Route: PO, Active 2015 [facility] Drug form: CAP, TID, Dosing Weight 97.273, kg, Start date: 02/12/16 13:00:00 CDT, Duration: 30 day, Stop date: 03/13/16 9:00:00 CDTNotes: (Same as: Neurontin) Naloxone 0.4 mg, 1 mL, Inactive The Route: IVP, 2015 [facility] Drug form: INJ, Q2MIN, Dosing Weight 96.023, kg, PRN Narcotic Reversal, Start date: 02/12/16 9:59:00 CDT, Duration: 8 doses or times, Stop date: Limited # of timesNotes: Same as Narcan Lorazepam 0.5 mg, 0.25 Inactive The mL, Route: 2015 [facility] IVP, Drug form: INJ, Q20Min, Dosing Weight 96.023, kg, PRN Anxiety, Start date: 02/12/16 9:59:00 CDT, Duration: 3 doses or times, Stop date: Limited # of timesNotes: (Same as: Ativan) Ondansetron 4 mg, Route: Inactive The IVP, ONCE, 2015 [facility] Dosing Weight 96.023, kg, PRN Nausea & Vomiting, Start date: 02/12/16 9:59:00 CDT Glycopyrrolate 0.2 mg, 1 mL, Inactive The Route: IVP, 2015 [facility] Drug form: INJ, Q5Min, Dosing Weight 96.023, kg, PRN Bradycardia, Start date: 02/12/16 9:59:00 CDT, Duration: 3 doses or times, Stop date: Limited # of timesNotes: (Same as: Marco Antonio) Flumazenil 0.2 mg, 2 mL, Inactive The Route: IVP, 2015 [facility] Drug form: INJ, PRN, Dosing Weight 96.023, kg, PRN Benzodiazepine Reversal, Initial dose, Start date: 02/12/16 9:59:00 CDT, Duration: 30 day, Stop date: 03/13/16 9:58:00 CDTNotes: (Same as: Romazicon) Fentanyl 25 microgram, Inactive The 0.5 mL, Route: 2015 [facility] IVP, Drug form: INJ, Q5Min, Dosing Weight 96.023, kg, PRN Pain Score 4-6, Start date: 02/12/16 9:59:00 CDT, Duration: 4 doses or times, Stop date: Limited # of timesNotes: (Same as: Sublimaze) Preservative free. Hydralazine 10 mg, 0.5 mL, Inactive The Route: IVP, 2015 [facility] Drug form: INJ, Q20Min, Dosing Weight 96.023, kg, PRN Elevated BP, Start date: 02/12/16 9:59:00 CDT, Duration: 2 doses or times, Stop date: Limited # of timesNotes: (Same as: Apresoline) Push over 5 minutes Hydromorphone 0.5 mg, 0.5 Inactive The mL, Route: 2015 [facility] IVP, Drug form: INJ, Q5Min, Dosing Weight 96.023, kg, PRN Pain Score 7-10, Start date: 02/12/16 9:59:00 CDT, Duration: 4 doses or times, Stop date: Limited # of timesNotes: Same as: Dilaudid Labetalol 10 mg, 2 mL, Inactive The Route: IVP, 2015 [facility] Drug form: INJ, Q5Min, Dosing Weight 96.023, kg, PRN Elevated BP, Start date: 02/12/16 9:59:00 CDT, Duration: 5 doses or times, Stop date: Limited # of times fentaNYL (ANES) Route: IV, Inactive The Drug form: 2015 [facility] INJ, ONCE, Stop date: 02/12/16 8:40:00 CDT propofol (ANES) Route: IV, Inactive The Drug form: 2015 [facility] INJ, ONCE, Stop date: 02/12/16 8:40:00 CDT lidocaine (ANES) Route: IV, Inactive The Drug form: 2015 [facility] INJ, ONCE, Stop date: 02/12/16 8:40:00 CDT LR 1000 mL INJ Route: IV, Inactive The (ANES) Total Volume: 2015 [facility] 1,000, Start date: 02/12/16 7:55:00 CDT, Stop date: 02/12/16 8:55:00 CDT Ceftriaxone 2 gm, Route: No Longer The IVPB, [id number], Active 2015 [facility] Dosing Weight 96.023, kg, Start date: 02/11/16 13:00:00 CDT, Duration: 5 day, Stop date: 02/15/16 13:00:00 CDTNotes: (Same As: Rocephin). Use with 100 mL NS and infuse over 30 min MEDICATION WASTE Product Size: 2000 mg Product Wasted: ___ mg Dilaudid 1 mg, 1 mL, No Longer The Route: IVP, Active 2015 [facility] Drug form: INJ, Q6H, Dosing Weight 96.023, kg, PRN Pain Score 7-10, Start date: 02/11/16 8:37:00 CDT, Duration: 30 day, Stop date: 03/12/16 8:36:00 CDTNotes: Same as: Dilaudid vancomycin 750 mg, 150 No Longer The mL, Route: Active 2015 [facility] IVPB, Drug form: INJ, Q24H, Start date: 02/11/16 6:00:00 CDT, Duration: 30 day, Stop date: 03/11/16 6:00:00 CDTNotes: TIME CRITICAL MEDICATION Same as: Vancocin Infusion rate 2000 mg: infuse over 2.5 hours metoprolol 50 mg, 1 tab, No Longer The Route: PO, Active 2015 [facility] Drug form: ERTAB, Daily, Start date: 02/10/16 9:00:00 CDT, Duration: 30 day, Stop date: 03/10/16 9:00:00 CDTNotes: (Same as: Toprol XL) May split tab, but do not crush. Alprazolam 1 MG 1 mg, 1 tab, No Longer The Oral Tablet Route: PO, Active 2015 [facility] [Xanax] Drug form: TAB, Q12H, Dosing Weight 96.023, kg, PRN Anxiety, Start date: 02/10/16 8:19:00 CDT, Duration: 30 day, Stop date: 03/11/16 8:18:00 CDTNotes: With food or milk (Same as: Xanax) vancomycin 750 mg, 150 Inactive The mL, Route: 2015 [facility] IVPB, Drug form: INJ, ONCE, Start date: 02/10/16 5:00:00 CDT, Stop date: 02/10/16 5:00:00 CDTNotes: TIME CRITICAL MEDICATION Same as: Vancocin Infusion rate 2001 mg: infuse over 2.5 hours Anoro 62.5mcg/25 Anoro No Longer The mcg 62.5mcg/25 Active 2015 [facility] mcg, 1 puff, Route: INHALATION, RBID, 02/09/16 20:00:00 CDT, Duration: 30 day, Stop date: 03/10/16 8:00:00 CDT ketOROLAC 30 mg/mL 60 mg, Route: Inactive The injectable IVP, Drug 2015 [facility] solution form: INJ, ONCE, Dosing Weight 96.023, kg, Start date: 02/09/16 17:40:00 CDT, Duration: 1 doses or times, Stop date: 02/09/16 17:40:00 CDT Vancomycin Dosing Vancomycin No Longer The per RPh Dosing per Active 2015 [facility], [facility] Drug form: MISC, Route: MISC, PRN, PRN Other -See Comment, 02/09/16 14:51:00 CDT, Duration: 30 day, Stop date: 03/10/16 14:50:00 CDT Dilaudid 1 mg, 1 mL, No Longer The Route: IVP, Active 2015 [facility] Drug form: INJ, Q4H, Dosing Weight 96.023, kg, PRN Pain Score 7-10, Start date: 02/09/16 13:01:00 CDT, Duration: 30 day, Stop date: 03/10/16 13:00:00 CDTNotes: Same as: Dilaudid Sodium Chloride 500 mL, 500 Inactive The 0.154 MEQ/ML ml/hr, Infuse 2015 [facility] Injectable Over: 1 hr, Solution Route: IV, 500, Drug form: INJ, ONCE, Priority: STAT, Dosing Weight 96.023 kg, Start date: 02/09/16 12:59:00 CDT, Duration: 1 doses or times, Stop date: 02/09/16 12:59:00 CDT pantoprazole 40 mg, 1 tab, No Longer The Route: PO, Active 2015 [facility] Drug form: ECTAB, Before Breakfast, Dosing Weight 96.023, kg, Start date: 02/09/16 9:00:00 CDT, Stop date: 03/09/16 7:30:00 CDTNotes: Tablet should not be chewed or crushed. (Same as: Protonix) chlorhexidine 1 appl, Route: No Longer The gluconate 40 MG/ML BATHE, Active 2015 [facility] Medicated Liquid Q-M-W-F, Drug Soap form: SOAP, Start date: 02/09/16 9:00:00 CDT, Duration: 30 day, Stop date: 03/08/16 9:00:00 CDTNotes: (Same As: Milla) Simvastatin 20 mg, 1 tab, No Longer The Route: PO, Active 2015 [facility] Drug form: TAB, Bedtime, Dosing Weight 96.023, kg, Start date: 02/08/16 21:00:00 CDT, Duration: 30 day, Stop date: 03/08/16 21:00:00 CDTNotes: (Same as: Zocor) Cefuroxime 1.5 gm, Route: No Longer The IVPB, [id number], Active 2015 [facility] Dosing Weight 96.023, kg, Start date: 02/08/16 21:00:00 CDT, Duration: 3 doses or times, Stop date: 02/09/16 13:00:00 CDT Neutra-Phos 2 pkt, Route: No Longer The PO, Drug Form: Active 2015 [facility] PDR/REC, Dosing Weight 96.023, kg, PRN, PRN [...] phosphate + sodium mL, Route: Active 2015 [facility] chloride 0.9% 500 IVPB, Drug ml INJ [...] phosphate + sodium mL, Route: Active [address] [employer] [address] [employer] chloride 0.9% INJ IVPB, PRN, 250 mL Dosing Weight 96.023, kg, PRN Abnormal Lab Result, Start date: 02/08/16 20:04:00 CDT, Duration: 30 day, Stop date: 03/09/16 20:03:00 CDT, FOR ICU USE ONLYNotes: (Same as: K Phosphate.) 1 mMol phoshate has 1.47 mEq potassium Infuse over 4 hours Magnesium Oxide 800 mg, 2 tab, No Longer The Route: PO, Active 2015 [facility] Drug form: TAB, PRN, Dosing Weight 96.023, kg, PRN Abnormal Lab Result, FOR ICU USE ONLY, Start date: 02/08/16 20:04:00 CDT, Duration: 30 day, Stop date: 03/09/16 20:03:00 CDTNotes: (Same as: Mag-Ox 400) Magnesium oxide [id number] elemental magnesium Dose=____mg magnesium oxide (___mg elemental magnesium) Magnesium Sulfate 2 gm, 50 mL, No Longer The Route: IVPB, Active 2015 [facility] Drug form: INJ, PRN, Dosing Weight 96.023, kg, PRN Abnormal Lab Result, Start date: 02/08/16 20:04:00 CDT, Duration: 30 day, Stop date: 03/09/16 20:03:00 CDT, FOR ICU USE ONLYNotes: WASTE: F/P - Sink; E - Municipal Trash Bin potassium chloride 20 mEq, 15 mL, No Longer The Route: NJ, Active 2015 [facility] Drug form: LIQ, PRN, Dosing Weight 96.023, kg, PRN Abnormal Lab Result, Start date: 02/08/16 20:04:00 CDT, Duration: 30 day, Stop date: 03/09/16 20:03:00 CDT, FOR ICU USE ONLYNotes: (Same as: Potassium Chloride) sodium phosphate + 15 mmol, 5 mL, No Longer The sodium chloride Route: IVPB, Active 2015 [facility] 0.9% INJ 250 mL PRN, Dosing Weight 96.023, kg, PRN Abnormal Lab Result, Start date: 02/08/16 20:04:00 CDT, Duration: 30 day, Stop date: 03/09/16 20:03:00 CDT, FOR ICU USE ONLY sodium phosphate + 45 mmol, 15 No Longer The sodium chloride mL, Route: Active 2015 [facility] 0.9% 500 ml INJ IVPB, Drug 500 mL form: INJ, PRN, Dosing Weight 96.023, kg, PRN Abnormal Lab Result, Start date: 02/08/16 20:04:00 CDT, Duration: 30 day, Stop date: 03/09/16 20:03:00 CDT, FOR ICU USE ONLY Calcium Carbonate 500 mg, 1 tab, No Longer The 500 MG Chewable Route: PO, Active 2015 [facility] Tablet Drug form: CHEWTAB, PRN, Dosing Weight 96.023, kg, PRN Abnormal Lab Result, FOR ICU USE ONLY, Start date: 02/08/16 20:04:00 CDT, Duration: 30 day, Stop date: 03/09/16 20:03:00 CDTNotes: (Same As: Tums) Calcium Carbonate 500 ev=796 mg elemental calcium Dose= mg calcium carbonate [...] The MG/ML Inhalant Route: NEB, Active 2015 [facility] Solution Drug form: SOLN, PRN, Dosing Weight 96.023, kg, PRN Respiratory Protocol, Start date: 02/08/16 20:04:00 CDT, Duration: 30 day, Stop date: 03/09/16 20:03:00 CDTNotes: SEE RT DOCUMENTATION (Same as: Proventil) Dextrose 50% 25 gm, 50 mL, No Longer The Syringe Route: IVP, Active 2015 [facility] Drug Form: INJ, Dosing Weight 96.023, kg, PRN, PRN Blood Glucose Results, Start date: 02/08/16 20:04:00 CDT, Duration: 30 day, Stop date: 03/09/16 20:03:00 CDT Docusate 100 mg, 1 cap, No Longer The Route: PO, Active 2015 [facility] Drug form: CAP, BID, Dosing Weight 96.023, kg, PRN Constipation, Start date: 02/08/16 20:04:00 CDT, Duration: 30 day, Stop date: 03/09/16 20:03:00 CDTNotes: (Same as: Colace) (Do Not Crush) Glucagon 1 mg, Route: No Longer The IM, Drug form: Active 2015 [facility] PDR/INJ, PRN, Dosing Weight 96.023, kg, PRN Blood Glucose Results, Start date: 02/08/16 20:04:00 CDT, Duration: 30 day, Stop date: 03/09/16 20:03:00 CDT Acetaminophen 325 2 tab, Route: No Longer The MG / Hydrocodone PO, Drug Form: Active 2015 [facility] Bitartrate 5 MG TAB, Dosing Oral Tablet Weight 96.023, kg, Q4H, PRN Pain Score 4-6, Start date: 02/08/16 20:04:00 CDT, Duration: 30 day, Stop date: 03/09/16 20:03:00 CDTNotes: (Same as: Sidon 325/5) Do not exceed 4gm/day of acetaminophen. Acetaminophen 650 mg, 2 tab, No Longer The Route: PO, Active 2015 [facility] Drug form: TAB, Q4H, Dosing Weight 96.023, kg, PRN Pain 1-3/Temp > 100.4 F, Start date: 02/08/16 20:04:00 CDT, Duration: 30 day, Stop date: 03/09/16 20:03:00 CDTNotes: Do not exceed 4 gm/day. (Same as: Tylenol) D5W /2NS + KCL 1,000 mL, No Longer The 20mEq/L 1000ml Rate: 50 Active 2015 [facility] (Premix) 1,000 mL ml/hr, Infuse over: 20 hr, Route: IV, Dosing Weight 96.023 kg, Total Volume: 1,000, Start date: 02/08/16 20:04:00 CDT, Duration: 30 day, Stop date: 03/09/16 20:03:00 CDTNotes: PREMIX IV - Do Not Alter WASTE: F/P - Sink; E - [employer] Trash Bin Ondansetron 4 mg, 2 mL, Inactive The Route: IVP2015 [facility] Drug form: INJ, ONCE, Dosing Weight 96.023, kg, PRN Nausea & Vomiting, Start date: 02/08/16 9:59:00 CDTNotes: (Same as: Zofran) MEDICATION WASTE Product Size: 4 mg Product Wasted: ___ mg Promethazine 6.25 mg, 25 Inactive The mL, Route: 2015 [facility] IVPB, Drug form: SOLN, ONCE, Dosing Weight 96.023, kg, PRN Nausea & Vomiting, Start date: 02/08/16 9:59:00 CDT Flumazenil 0.2 mg, 2 mL, Inactive The Route: IVP, 2015 [facility] Drug form: INJ, PRN, Dosing Weight 96.023, kg, PRN Benzodiazepine Reversal, Initial dose, Start date: 02/08/16 9:59:00 CDT, Duration: 30 day, Stop date: 03/09/16 9:58:00 CDTNotes: (Same as: Romazicon) Naloxone 0.4 mg, 1 mL, Inactive The Route: IVP, 2015 [facility] Drug form: INJ, Q2MIN, Dosing Weight 96.023, kg, PRN Narcotic Reversal, Start date: 02/08/16 9:59:00 CDT, Duration: 8 doses or times, Stop date: Limited # of timesNotes: Same as Narcan Fentanyl 50 microgram, Inactive The 1 mL, Route: 2015 [facility] IVP, Drug form: INJ, Q5Min, Dosing Weight 96.023, kg, PRN Pain Score 7-10, Start date: 02/08/16 9:59:00 CDT, Duration: 2 doses or times, Stop date: Limited # of timesNotes: (Same as: Sublimaze) Preservative free. Hydromorphone 1 mg, 1 mL, Inactive The Route: IVP, 2015 [facility] Drug form: INJ, Q5Min, Dosing Weight 96.023, kg, PRN Pain Score 7-10, Start date: 02/08/16 9:59:00 CDT, Duration: 4 doses or times, Stop date: Limited # of timesNotes: Same as: Dilaudid Labetalol 10 mg, 2 mL, Inactive The Route: IVP, 2015 [facility] Drug form: INJ, Q5Min, Dosing Weight 96.023, kg, PRN Elevated BP, Start date: 02/08/16 9:59:00 CDT, Duration: 5 doses or times, Stop date: Limited # of times ondansetron (ANES) Route: IV, Inactive The Drug form: 2015 [facility] INJ, ONCE, Stop date: 02/08/16 9:40:00 CDT hydromorphone Route: IV, Inactive The (ANES) Drug form: 2015 [facility] INJ, ONCE, Stop date: 02/08/16 9:15:00 CDT LR 1000 mL INJ Route: IV, Inactive The (ANES) Total Volume: 2015 [facility] 1,000, Start date: 02/08/16 9:08:00 CDT, Stop date: 02/08/16 10:08:00 CDT heparin (ANES) Route: IV, Inactive The Drug form: 2015 [facility] INJ, ONCE, Stop date: 02/08/16 8:55:00 CDT fentaNYL (ANES) Route: IV, Inactive The Drug form: 2015 [facility] INJ, ONCE, Stop date: 02/08/16 8:40:00 CDT propofol (ANES) Route: IV, Inactive The Drug form: 2015 [facility] INJ, ONCE, Stop date: 02/08/16 8:40:00 CDT lidocaine (ANES) Route: IV, Inactive The Drug form: 2015 [facility] INJ, ONCE, Stop date: 02/08/16 8:40:00 CDT midazolam (ANES) Route: IV, Inactive The Drug form: 2015 [facility] SOLN, ONCE, Stop date: 02/08/16 8:40:00 CDT rocuronium (ANES) Route: IV, Inactive The Drug form: 2015 [facility] INJ, ONCE, Stop date: 02/08/16 8:40:00 CDT piperacillin-tazob IV, ONCE Inactive The actam (ANES) [place] famotidine (ANES) Route: IV, Inactive The Drug form: 2015 [facility] INJ, ONCE, Stop date: 02/08/16 8:25:00 CDT [...] No Longer The Route: PO, Active 2015 [facility] Drug form: TAB, Q4H, PRN Pain 1-3/Temp > 100.4 F, Start date: 02/07/16 10:35:00 CDT, Duration: 30 day, Stop date: 03/08/16 10:34:00 CDTNotes: (Same as: Roxicodone) oxyCODONE 10 mg 15 mg, Route: Inactive The extended release PO, Drug form: 2015 [facility] ERTAB, Q6H, Start date: 02/05/16 18:00:00 CDT, Duration: 30 day, Stop date: 03/06/16 12:00:00 CDT Roxicodone 15 mg, 3 tab, No Longer The Route: PO, Active 2015 [facility] Drug form: TAB, Q6Hnow, Start date: 02/05/16 15:21:00 CDT, Stop date: 03/06/16 11:00:00 CDTNotes: (Same as: Roxicodone) Dilaudid 2 mg, 1 mL, No Longer The Route: IV, Active 2015 [facility] Drug form: INJ, Q2H, Dosing Weight 97.273, kg, PRN Pain Score 7-10, Start date: 02/05/16 15:04:00 CDT, Duration: 30 day, Stop date: 03/06/16 15:03:00 CDTNotes: Same as: Dilaudid sodium chloride 1,000 mL, No Longer The 0.9% 1000 ml INJ Rate: 50 Active 2015 [facility] 1,000 mL ml/hr, Infuse over: 20 hr, Route: IV, Dosing Weight 97.273 kg, Total Volume: 1,000, Start date: 02/04/16 11:14:00 CDT, Stop date: 03/05/16 11:13:00 CDT vancomycin 750 mg, 150 No Longer The mL, Route: Active 2015 [facility] IVPB, Drug form: INJ, [id number], Start date: 02/02/16 15:00:00 CDT, Duration: 30 day, Stop date: 03/03/16 3:00:00 CDTNotes: TIME CRITICAL MEDICATION Same as: Vancocin Infusion rate 2000 mg: infuse over 2.5 hours atorvastatin 40 mg, 1 tab, No Longer The Route: PO, Active 2015 [facility] Drug form: TAB, Bedtime, Dosing Weight 97.273, kg, Start date: 02/01/16 21:00:00 CDT, Duration: 30 day, Stop date: 03/01/16 21:00:00 CDTNotes: (Same as: Lipitor) Vancomycin 1 ea, Route: Inactive The [facility] – [place], Dosing 2015 [facility] Weight 97.273, kg, ONCALL, Start date: 02/01/16 15:00:00 CDT, Duration: 1 doses or times, Pharmacy to dose Acetaminophen 325 1 tab, Route: No Longer The MG / Hydrocodone PO, Drug Form: Active 2015 [facility] Bitartrate 10 MG TAB, Dosing Oral Tablet [Sidon Weight 97.273, 10/325] kg, Q6H, PRN Pain Score 4-6, Start date: 02/01/16 13:10:00 CDT, Duration: 30 day, Stop date: 03/02/16 13:09:00 CDTNotes: Do not exceed 4gm/day of acetaminophen. (Same as: Sidon 325/10) Tylenol 650 mg, 2 tab, No Longer The Route: PO, Active 2015 [facility] Drug form: TAB, Q6H, Dosing Weight 97.273, kg, PRN Pain Score 1-3, Start date: 02/01/16 13:02:00 CDT, Duration: 30 day, Stop date: 03/02/16 13:01:00 CDTNotes: Do not exceed 4 gm/day. (Same as: Tylenol) Vancomycin 1,000 mg, No Longer The Route: IVPB, Active 2015 [facility] [id number], Dosing Weight 97.273, kg, Start date: 02/01/16 13:00:00 CDT, Stop date: 03/02/16 1:00:00 CDTNotes: TIME CRITICAL MEDICATION (Same As: Vancocin) Infusion rate 2001 mg: infuse over 2.5 hours MEDICATION WASTE Product Size: 1000 mg Product Wasted: ___ mg Zosyn 3.375 gm, No Longer The Route: IVPB, Active 2015 [facility] [id number], Dosing Weight 97.273, kg, CrCl Notes: [...] Tartrate 100 MG Route: PO, Active 2015 [facility] Extended Release Drug form: Tablet [Toprol] ERTAB, Daily, Start date: 02/01/16 9:00:00 CDT, Duration: 30 day, Stop date: 03/01/16 9:00:00 CDTNotes: (Same as: Toprol XL) May split tab, but do not crush. Alprazolam 2 MG 2 mg, 2 tab, No Longer The Oral Tablet Route: PO, Active 2015 [facility] Drug form: TAB, BID, Dosing Weight 97.273, kg, PRN Anxiety, Start date: 02/01/16 8:23:00 CDT, Duration: 30 day, Stop date: 03/02/16 8:22:00 CDTNotes: With food or milk (Same as: Xanax) Albuterol 0.833 3 ml, Route: No Longer The MG/ML / NEB, Drug Active 2015 [facility] Ipratropium Form: SOLN, [place] 0.167 Dosing Weight MG/ML Inhalant 97.273, kg, Solution PRN, PRN Respiratory Protocol, Start date: 02/01/16 8:22:00 CDT, Duration: 30 day, Stop date: 03/02/16 8:21:00 CDTNotes: (Same as: Duoneb) Zofran 4 mg, 2 mL, No Longer The Route: IVP, Active 2015 [facility] Drug form: INJ, Q6H, Dosing Weight 97.273, kg, PRN Nausea, Start date: 02/01/16 1:24:00 CDT, Duration: 30 day, Stop date: 03/02/16 1:23:00 CDTNotes: (Same as: Zofran) MEDICATION WASTE Product Size: 4 mg Product Wasted: ___ mg Dilaudid 2 mg, 2 mL, No Longer The Route: IVP, Active 2015 [facility] Drug form: INJ, Q4H, Dosing Weight 97.273, kg, PRN Pain Score 7-10, Start date: 02/01/16 1:23:00 CDT, Duration: 30 day, Stop date: 03/02/16 1:22:00 CDTNotes: Same as: Dilaudid Acetaminophen 300 1 tab, PO, No Longer The MG / Codeine BID, PRN pain, Active 2015 [facility] Phosphate 30 MG # 28 tab, 0 Oral Tablet Refill(s) lisinopril 10 mg 10 mg=1 tab, Active The oral tablet PO, Daily, # 2015 [facility] 30 tab, 0 Refill(s) metoprolol 100 mg=1 tab, Active The tartrate 100 mg PO, BID, # 60 2015 [facility] oral tablet tab, 0 Refill(s) Centrum Adults 1 tab, PO, Active The oral tablet Daily, 0 2015 [facility] Refill(s) doxazosin 1 mg 1 mg=1 tab, Active The oral tablet PO, Daily, # 2015 [facility] 30 tab, 0 Refill(s) atorvastatin 40 mg 40 mg=1 tab, Active The oral tablet PO, Bedtime, # 2015 [facility] 30 tab, 0 Refill(s) Anoro Ellipta 62.5 1 puff, Active The mcg-25 mcg INHALER, 2015 [facility] inhalation powder Daily, # 1 ea, 3 Refill(s) Alprazolam 2 MG 2 mg=1 tab, Active The Oral Tablet PO, BID, PRN 2015 [facility] Anxiety, # 20 tab, 0 Refill(s) Furosemide 20 MG 20 mg=1 tab, Active The Oral Tablet PO, Daily, # 2015 [facility] 30 tab, 0 Refill(s) cilostazol 100 mg 100 mg=1 tab, Active The oral tablet PO, BID, # 60 2015 [facility] tab, 0 Refill(s) Acetaminophen 650 mg, Route: Inactive The PO, Drug form: 2015 [facility] TAB, ONCE, Dosing Weight 95, kg, Priority: STAT, Start date: 01/31/16 22:28:00 CDT, Stop date: 01/31/16 22:28:00 CDT Piperacillin / 3.375 gm, Inactive The tazobactam Route: IVPB, 2015 [facility] ONCE, Dosing Weight 95, kg, Priority: STAT, Start date: 01/31/16 17:57:00 CDT, Stop date: 01/31/16 17:57:00 CDTNotes: (Same as: Zosyn) Dosing based on Piperacillin component MEDICATION WASTE Product Size: 3375 mg Product Wasted: ___ mg Vancomycin 1,000 mg, Inactive The Route: IVPB, 2015 [facility] ONCE, Dosing Weight 95, kg, Priority: STAT, Start date: 01/31/16 17:57:00 CDT, Stop date: 01/31/16 17:57:00 CDT, TIME CRITICAL MEDICATIONNote s: TIME CRITICAL MEDICATION (Same As: Vancocin) Infusion rate 2001 mg: infuse over 2.5 hours MEDICATION WASTE Product Size: 1000 mg Product Wasted: ___ mg Sodium Chloride 1,000 mL, Inactive The 0.154 MEQ/ML 2,000 ml/hr, 2015 [facility] Injectable Infuse Over: Solution 30 minutes, Route: IV, 1,000, Drug form: INJ, ONCE, Priority: STAT, Dosing Weight 95 kg, Start date: 01/31/16 17:04:00 CDT, Duration: 1 doses or times, Stop date: 01/31/16 17:04:00 CDT Acetaminophen 325 1 tab, Route: Inactive The MG / Hydrocodone PO, Drug Form: 2015 [facility] Bitartrate 10 MG TAB, Dosing Oral Tablet [Sidon Weight 95, kg, 10/325] ONCE, STAT, Start date: 01/31/16 16:57:00 CDT, Stop date: 01/31/16 16:57:00 CDTNotes: Do not exceed 4gm/day of acetaminophen. (Same as: Sidon 325/10) Amlodipine 10 mg, PO, Active The Daily, 0 2015 [facility] Refill(s) gabapentin 300 mg, PO, Active The BID, 0 2015 [facility] Refill(s) atorvastatin 20 mg, 1 tab, Inactive The Route: PO, 2014 [facility] Drug form: TAB, Bedtime, Dosing Weight 98.267, kg, Start date: 02/16/15 21:00:00, Duration: 30 day, Stop date: 03/17/15 21:00:00Notes: (Same As: Lipitor) lovastatin 20 mg 20 mg=1 tab, Active The oral tablet PO, Bedtime, # [facility] 30 tab, 0 Refill(s), given to patient Hydrochlorothiazid 1 tab, Route: No Longer The e 12.5 MG / PO, Drug Form: Active 2014 [facility] Lisinopril 20 MG TAB, Dosing Oral Tablet Weight 98.267, kg, Daily, Start date: 02/16/15 9:00:00, Duration: 30 day, Stop date: 03/17/15 9:00:00 Prinivil 20 mg, 1 tab, Inactive The Route: PO, 2014 [facility] Drug form: TAB, Daily, Start date: 02/16/15 9:00:00, Duration: 30 day, Stop date: 03/17/15 9:00:00Notes: (Same as: Prinivil, Zestril) metoprolol 25 mg, 1 tab, Inactive The tartrate Route: PO, 2014 [facility] Drug form: TAB, Q12H, Dosing Weight 98.267, kg, Start date: 02/16/15 9:00:00, Duration: 30 day, Stop date: 03/17/15 21:00:00Notes: (Same as: Lopressor) Microzide 12.5 mg, 1 Inactive The tab, Route: 2014 [facility] PO, Drug form: TAB, Daily, Start date: 02/16/15 9:00:00, Duration: 30 day, Stop date: 03/17/15 9:00:00Notes: (Same as: Hydrodiuril). Give with food. pneumococcal 0.5 mL, Route: Inactive The capsular IM, Drug Form: 2014 [facility] polysaccharide INJ, Daily, type 1 vaccine / [...] The Oral Tablet tab, Route: Active 2014 [facility] [Xanax] PO, Drug form: TAB, BID, Dosing Weight 98.267, kg, PRN Anxiety, Start date: 02/15/15 23:39:00, Duration: 30 day, Stop date: 03/17/15 23:38:00Notes: With food or milk (Same as: Xanax) Acetaminophen 325 1 tab, Route: No Longer The MG / Hydrocodone PO, Drug Form: Active 2014 [facility] Bitartrate 5 MG TAB, Dosing Oral Tablet [Sidon Weight 98.267, 5/325] kg, Q12H, PRN Pain 1-3/Temp > 100.4 F, Start date: 02/15/15 23:39:00, Duration: 30 day, Stop date: 03/17/15 23:38:00Notes: (Same as: Sidon 325/5) Do not exceed 4gm/day of acetaminophen. Tessalon Perles 200 mg, 2 cap, No Longer The Route: PO, Active 2014 [facility] Drug form: CAP, TID, Dosing Weight 13.636, kg, Start date: 02/15/15 20:00:00, Duration: 30 day, Stop date: 03/17/15 17:00:00Notes: (Same As: Tessalon Perles) "Do Not Crush" Acetaminophen 325 1 tab, PO, Active The MG / Hydrocodone Q12H, PRN 2014 [facility] Bitartrate 5 MG Pain, # 30 Oral Tablet [Sidon tab, 0 5/325] Refill(s) Alprazolam 0.25 MG 0.25 mg=1 tab, Active The Oral Tablet PO, BID, PRN 2014 [facility] [Xanax] Anxiety, Stress, # 20 tab, 0 Refill(s) metoprolol 25 mg, PO, Active The tartrate BID, 0 2014 [facility] Refill(s) NS 1,000 mL 1,000 mL, No Longer The Rate: 75 Active 2014 [facility] ml/hr, Infuse over: 13.3 hr, Route: IV, Dosing Weight 13.636 kg, Total Volume: 1,000, Start date: 02/15/15 18:04:00, Duration: 30 day, Stop date: 03/17/15 18:03:00 Xopenex 0.63 mg, 3 mL, No Longer The Route: NEB, Active 2014 [facility] Drug form: SOLN, PRN, Dosing Weight 13.636, kg, PRN Respiratory Protocol, Start date: 02/15/15 18:03:00, Duration: 30 day, Stop date: 03/17/15 18:02:00Notes: SEE RT DOCUMENTATION (Same as:Xopenex) Non-Formulary Acetaminophen 325 2 tab, Route: No Longer The MG / Hydrocodone PO, Drug Form: Active 2014 [facility] Bitartrate 10 MG TAB, Dosing Oral Tablet [Sidon Weight 13.636, 10/325] kg, Q4H, PRN Pain Score 4-6, Start date: 02/15/15 18:03:00, Duration: 30 day, Stop date: 03/17/15 18:02:00Notes: Do not exceed 4gm/day of acetaminophen. (Same as: Sidon 325/10) Albuterol 0.833 3 ml, Route: No Longer The MG/ML / NEB, Drug Active 2014 [facility] Ipratropium Form: SOLN, [place] 0.167 Dosing Weight MG/ML Inhalant 13.636, kg, Solution [DuoNeb] PRN, PRN Respiratory Protocol, Start date: 02/15/15 15:51:00, Duration: 30 day, Stop date: 03/17/15 15:50:00Notes: (Same as: Duoneb) Aspirin 324 mg, 4 tab, Inactive The Route: CHEW, 2014 [facility] Drug form: CHEWTAB, ONCE, Dosing Weight 13.636, kg, Priority: STAT, Start date: 02/15/15 15:00:00, Stop date: 02/15/15 15:00:00Notes: Take with food. tramadol 100 mg=2 tab, Active The hydrochloride 50 PO, Q6H, PRN 2014 [facility] MG Oral Tablet pain, X 3 day, [Ultram] # 20 tab, 0 Refill(s) Tylenol 650 mg, 2 tab, Inactive The Route: PO, 2014 [facility] Drug form: TAB, ONCE, Dosing Weight 108.182, kg, Pediatric Dosing, Priority: STAT, Start date: 02/09/15 15:47:00, Stop date: 02/09/15 15:47:00Notes: Do not exceed 4 gm/day. (Same as: Tylenol) Sodium Chloride 1,000 mL, Inactive The 0.154 MEQ/ML 1,000 ml/hr, 2014 [facility] Injectable Infuse Over: 1 Solution hr, Route: IV, 1,000, Drug form: INJ, ONCE, Priority: STAT, Dosing Weight 104.545 kg, Start date: 01/23/15 14:39:00, Duration: 1 doses or times, Stop date: 01/23/15 14:39:00 Saline Flush 0.9% 10 mL, Route: Inactive The IVP, Drug 2014 [facility] Form: INJ, Dosing Weight 104.545, kg, PRN, PRN Line Flush, Start date: 01/23/15 14:39:00, Duration: 30 day, Stop date: 02/22/15 14:38:00Notes: preservative free. Allergies, Adverse Reactions, Alerts Substance Category Reaction Severity Reaction Status Date Comments Source type Reported morphine Assertion Drug Active The allergy [facility] Immunizations Immunization Date Site Status Last Updated Comments Source Given pneumococcal Right completed Ashok The 23-valent 5 deltoid [facility] vaccine Results Order Name Results Value Reference Date Interpretation Comments Source Range BLOOD BANK RBC product Product available 04/04 The RESULTS (04/04/16 11:22 AM) /2015 [facility] BLOOD BANK ABO/Rh B POS 04/04 The RESULTS /2015 [facility] BLOOD BANK Antibody Negative 04/04 The RESULTS Scrn (04/04/16 11:20 AM) [facility] URINE AND UA <=1.0 0.1 - 1.0 03/14 The STOOL Urobilinogen mg/dL /2015 [facility] URINE AND UA RBC 1 0 - 2 03/14 The STOOL /2015 [facility] URINE AND UA WBC 3 0 - 5 03/14 The STOOL /2015 [facility] URINE AND UA Sq Epi Few /LPF Few /LPF 03/14 The STOOL /2015 [facility] URINE AND UA Mucus Few /LPF None Seen 03/14 The STOOL /LPF /2015 [facility] URINE AND UA Leuk Est Negative Negative 03/14 The STOOL (03/14/16 2:08 AM) /2015 [facility] URINE AND UA Protein Negative Negative 03/14 The STOOL mg/dL mg/dL /2015 [facility] URINE AND UA pH 5.0 5.0 - 8.0 03/14 The STOOL /2015 [facility] URINE AND UA Spec Grav 1.009 <=1.030 03/14 The STOOL /2015 [facility] URINE AND UA Turbidity Clear Clear 03/14 The STOOL (03/14/16 2:08 AM) /2015 [facility] URINE AND UA Ketones Negative Negative 03/14 The STOOL mg/dL mg/dL /2015 [facility] URINE AND UA Glucose Negative Negative 03/14 The STOOL mg/dL mg/dL /2015 [facility] URINE AND UA Color Yellow Yellow 03/14 The STOOL *NA* /2015 [facility] (03/14/16 2:08 AM) URINE AND UA Nitrite Negative Negative 03/14 The STOOL (03/14/16 2:08 AM) /2015 [facility] URINE AND UA Blood Negative Negative 03/14 The STOOL (03/14/16 2:08 AM) /2015 [facility] URINE AND UA Bili Negative Negative 03/14 The STOOL *NA* /2015 [facility] (03/14/16 2:08 AM) CHEM PANEL Lactic Acid 0.8 0.5 - 2.2 03/14 The Lvl /2015 [facility] CHEM PANEL Procalcitoni <0.05 0.00 - 03/14 The n Lvl ng/mL 0. [facility] BLOOD BANK Antibody Negative 03/14 The RESULTS Scrn (03/13/16 9:07 PM) /2015 [facility] BLOOD BANK ABO/Rh B POS 03/14 The RESULTS [facility] CHEM PANEL eGFR 43 03/14 Result MH Comment: [place] eGFR is calculated using the CKD-EPI formula. [...] 21 7 - 22 10 MH The [facility] CHEM PANEL Creatinine 1.79 0.50 - 10 MH The Lvl 1.40 [facility] CHEM PANEL Alk Phos 95 39 - 136 10 MH The [facility] CHEM PANEL Bili Total 0.3 0.2 - 1.3 03/14 MH The [facility] CHEM PANEL AST 39 0 - 37 10 MH The [facility] CHEM PANEL ALT 59 0 - 65 10 MH The [facility] CHEM PANEL Sodium Lvl 139 135 - 145 10 MH The [facility] CHEM PANEL Total 7.8 6.4 - 8.4 10 MH The Protein [facility] CHEM PANEL Albumin Lvl 2.5 3.5 - 5.0 10 MH The [facility] CHEM PANEL Glucose Lvl 120 70 - 99 10 MH The [facility] CHEM PANEL Chloride Lvl 106 95 - 109 10/ MH The [facility] [employer] CHEM PANEL CO2 21 24 - 32 10/18 MH The [facility] CHEM PANEL Calcium Lvl 10.1 8.5 - 10.5 10/18 MH The [facility] CHEM PANEL Potassium 3.3 3.5 - 5.1 10/18 MH The Lvl [facility] CHEM PANEL A/G Ratio 0.5 0.7 - 1.6 10/18 MH The [facility] CHEM PANEL Globulin 5.3 2.7 - 4.2 10/[address] [facility] [employer] CHEM PANEL B/C Ratio 12 6 - 25 10 MH The [facility] CHEM PANEL AGAP 15.3 10.0 - 03/14 MH The 20.0 [facility] HEMATOLOGY MPV 7.4 7.4 - 10.4 10 MH The [facility] HEMATOLOGY WBC 7.3 3.7 - 10.4 10 MH The [facility] HEMATOLOGY MCV 88.5 80.0 - 03/14 MH The 94.0 [facility] HEMATOLOGY RBC 3.00 4.70 - 03/14 MH The 6.10 [facility] HEMATOLOGY Hct 26.5 42.0 - 10 MH The 54.0 [facility] HEMATOLOGY Hgb 8.8 14.0 - 03/14 MH The 18.0 [facility] HEMATOLOGY MCHC 33.1 32.0 - 03/14 MH The 36.0 [facility] HEMATOLOGY MCH 29.3 27.0 - 03/14 MH The 31.0 [facility] HEMATOLOGY Platelet 241 133 - 450 03/14 MH The [facility] HEMATOLOGY RDW 15.5 11.5 - 03/14 MH The 14.5 [facility] HEMATOLOGY Basophils # 0.1 0.0 - 0.2 10 MH The [facility] HEMATOLOGY Lymphocytes 14.3 20.0 - 03/14 MH The 40.0 [facility] HEMATOLOGY Eosinophils 1.9 0.0 - 4.0 10 MH The [facility] HEMATOLOGY Segs 77.1 45.0 - 03/14 MH The 75.0 [facility] HEMATOLOGY Monocytes 5.3 2.0 - 12.0 03/14 MH The [facility] HEMATOLOGY Basophils 1.4 0.0 - 1.0 10 MH The [facility] HEMATOLOGY Segs-Bands # 5.6 1.5 - 8.1 10 MH The [facility] HEMATOLOGY Lymphocytes 1.0 1.0 - 5.5 10 MH The # [facility] HEMATOLOGY Monocytes # 0.4 0.0 - 0.8 03/14 MH The [facility] HEMATOLOGY Eosinophils 0.1 0.0 - 0.5 03/14 MH The # [facility] ANEMIA UIBC 174 110 - 370 02/15 MH The STUDY /2015 [facility] ANEMIA TIBC 196 228 - 428 02/15 MH The STUDY /2015 [facility] ANEMIA Iron 22 45 - 160 02/15 The [facility] ANEMIA % Satur Fe 11 12 - 57 02/15 The [facility] CHEM PANEL eGFR 57 02/14 Result The Comment: [place] eGFR is calculated using the CKD-EPI formula. [...] AGAP 14.7 10.0 - 02/14 The .0 [facility] CHEM PANEL Calcium Lvl 8.7 8.5 - 10.5 02/14 The [facility] CHEM PANEL CO2 24 24 - 32 02/14 The [facility] CHEM PANEL Chloride Lvl 99 95 - 109 02/14 MH The [facility] CHEM PANEL Potassium 3.7 3.5 - 5.1 02/14 The [facility] CHEM PANEL BUN 16 7 - 22 02/14 The [facility] CHEM PANEL Glucose Lvl 128 70 - 99 02/14 The [facility] CHEM PANEL Sodium Lvl 134 135 - 145 02/14 The [facility] CHEM PANEL Creatinine 1.42 0.50 - 02/14 MH The Lvl 1.40 [facility] CHEM PANEL eGFR 51 02/13 Result Comment: [place] eGFR is calculated using the CKD-EPI formula. [...] 0.2 - 1.3 02/13 Result The Comment: [facility] reviewed all results 02/14/2016 06:35 [facility] CHEM PANEL ALT 25 0 - 65 02/[address] [facility] [employer] CHEM PANEL AST 15 0 - 37 02/[address] [facility] [employer] CHEM PANEL Alk Phos 62 39 - 136 02/[address] [facility] [employer] CHEM PANEL Globulin 4.8 2.7 - 4.2 02/[address] [facility] [employer] CHEM PANEL A/G Ratio 0.5 0.7 - 1.6 02/[address] [facility] [employer] CHEM PANEL Calcium Lvl 9.0 8.5 - 10.5 02/[address] [facility] [employer] CHEM PANEL Glucose Lvl 109 70 - 99 02/[address] [facility] [employer] CHEM PANEL CO2 24 24 - 32 02/[address] [facility] [employer] CHEM PANEL Chloride Lvl 101 95 - 109 02/13 The [facility] CHEM PANEL BUN 17 7 - 22 02/13 The [facility] CHEM PANEL Potassium 4.1 3.5 - 5.1 02/[address] [facility] [employer] CHEM PANEL AGAP 14.1 10.0 - 02/[address] [facility] CHEM PANEL Albumin Lvl 2.3 3.5 - 5.0 02/[address] [facility] [employer] CHEM PANEL Total 7.1 6.4 - 8.4 02/[address] [facility] [employer] CHEM PANEL Creatinine 1.55 0.50 - 02/[address] [facility] CHEM PANEL Sodium Lvl 135 135 - 145 02/[address] [facility] [employer] CHEM PANEL B/C Ratio 11 6 - 25 02/13 The /2015 [facility] HEMATOLOGY MPV 7.7 7.4 - 10.4 09 The /2015 [facility] HEMATOLOGY Hct 25.4 42.0 - 02/13 MH The 54.0 /2015 [facility] HEMATOLOGY MCH 32.7 27.0 - 02/13 MH The 31.0 [facility] HEMATOLOGY MCV 96.6 80.0 - 02/13 MH The 94.0 [facility] HEMATOLOGY Platelet 296 133 - 450 02/13 The [facility] HEMATOLOGY RDW 14.7 11.5 - 02/13 The 14.5 [facility] HEMATOLOGY MCHC 33.8 32.0 - 02/13 MH The 36.0 [facility] HEMATOLOGY WBC 8.4 3.7 - 10.4 02/13 The [facility] HEMATOLOGY Hgb 8.6 14.0 - 02/13 MH The 18.0 [facility] HEMATOLOGY RBC 2.63 4.70 - 02/13 MH The 6.10 [facility] HEMATOLOGY Lymphocytes 1.5 1.0 - 5.5 02/13 MH The # [facility] HEMATOLOGY Eosinophils 0.2 0.0 - 0.5 02/13 MH The # [facility] HEMATOLOGY Monocytes # 0.8 0.0 - 0.8 02/13 MH The [facility] HEMATOLOGY Basophils # 0.1 0.0 - 0.2 02/13 MH The [facility] HEMATOLOGY Monocytes 9.9 2.0 - 12.0 02/13 MH The [facility] HEMATOLOGY Lymphocytes 17.2 20.0 - 02/13 MH The 40.0 [facility] HEMATOLOGY Segs 69.8 45.0 - 02/13 MH The 75.0 [facility] HEMATOLOGY Eosinophils 2.2 0.0 - 4.0 02/13 MH The [facility] HEMATOLOGY Segs-Bands # 5.9 1.5 - 8.1 02/13 MH The [facility] HEMATOLOGY Basophils 0.9 0.0 - 1.0 02/13 MH The [facility] TOXICOLOGY Vanco Tr 14.8 02/13 MH The [facility] TOXICOLOGY Vanco Tr TND TBD 02/13 MH The [facility] CHEM PANEL Total 6.3 6.4 - 8.4 02/12 MH The Protein [facility] CHEM PANEL A/G Ratio 0.7 0.7 - 1.6 09/18 MH The [facility] CHEM PANEL B/C Ratio 12 6 - 25 09/18 MH The [facility] CHEM PANEL Globulin 3.8 2.7 - 4.2 09/18 MH The [facility] CHEM PANEL AST 12 0 - 37 /18 MH The [facility] CHEM PANEL Alk Phos 61 39 - 136 /18 MH The [facility] CHEM PANEL Albumin Lvl 2.5 3.5 - 5.0 09/18 MH The [facility] CHEM PANEL ALT 26 0 - 65 09/18 MH The [facility] CHEM PANEL Bili Total 0.4 0.2 - 1.3 09/18 MH The [facility] CHEM PANEL AGAP 13.5 10.0 - 0918 MH The 20.0 [facility] CHEM PANEL eGFR 57 /18 Result MH The Comment: [place] eGFR is calculated using the CKD-EPI formula. [...] 27 24 - 32 09/18 MH The [facility] CHEM PANEL Calcium Lvl 8.7 8.5 - 10.5 /18 MH The [facility] CHEM PANEL Chloride Lvl 100 95 - 109 /18 MH The [facility] CHEM PANEL Potassium 4.5 3.5 - 5.1 18 MH The Lvl /2015 [facility] CHEM PANEL Creatinine 1.42 0.50 - 0918 MH The Lvl 1.40 /2015 [facility] CHEM PANEL Sodium Lvl 136 135 - 145 09/18 MH The [facility] CHEM PANEL Glucose Lvl 105 70 - 99 02/12 The [facility] CHEM PANEL BUN 17 7 - 22 02/12 The [facility] TOXICOLOGY Vanco Tr TND TBD 02/12 The [facility] TOXICOLOGY Vanco Tr 9.3 02/12 The [facility] CHEM PANEL Phosphorus 4.9 2.5 - 4.5 02/11 The [facility] CHEM PANEL Magnesium 1.8 1.8 - 2.4 02/11 The Lvl /2015 [facility] HEMATOLOGY Segs 70.5 45.0 - 02/11 The 75.0 [facility] HEMATOLOGY Lymphocytes 18.0 20.0 - 02/11 The 40.0 [facility] HEMATOLOGY Monocytes 9.7 2.0 - 12.0 02/11 The [facility] HEMATOLOGY Segs-Bands # 6.4 1.5 - 8.1 02/11 The [facility] HEMATOLOGY Lymphocytes 1.6 1.0 - 5.5 02/11 The # [facility] HEMATOLOGY Basophils 0.5 0.0 - 1.0 02/11 The [facility] HEMATOLOGY Eosinophils 1.3 0.0 - 4.0 02/11 The [facility] HEMATOLOGY Monocytes # 0.9 0.0 - 0.8 02/11 The [facility] HEMATOLOGY Eosinophils 0.1 0.0 - 0.5 02/11 The # [facility] HEMATOLOGY Platelet 307 133 - 450 02/11 The [facility] HEMATOLOGY MPV 6.9 7.4 - 10.4 02/11 The [facility] HEMATOLOGY MCHC 33.9 32.0 - 02/11 The 36.0 [facility] HEMATOLOGY RDW 15.1 11.5 - 02/11 The 14.5 /2015 [facility] HEMATOLOGY RBC 2.69 4.70 - 02/11 The 6.10 [facility] HEMATOLOGY MCV 96.5 80.0 - 02/11 The 94.0 [facility] HEMATOLOGY WBC 9.1 3.7 - 10.4 02/11 The [facility] HEMATOLOGY Hgb 8.8 14.0 - 02/11 The 18.0 [facility] HEMATOLOGY Hct 26.0 42.0 - 02/11 The 54.0 /2015 [facility] HEMATOLOGY MCH 32.7 27.0 - 02/11 The 31.0 [facility] HEMATOLOGY Segs-Bands # 7.7 1.5 - 8.1 02/11 The [facility] HEMATOLOGY Basophils 1.5 0.0 - 1.0 09 The [facility] HEMATOLOGY Basophils # 0.2 0.0 - 0.2 02/11 The [facility] HEMATOLOGY Eosinophils 0.2 0.0 - 0.5 02/11 [facility] [facility] HEMATOLOGY Monocytes # 1.2 0.0 - 0.8 02/11 The [facility] HEMATOLOGY Segs 69.4 45.0 - 02/11 The 75.0 [facility] HEMATOLOGY Monocytes 10.5 2.0 - 12.0 02/11 The [facility] HEMATOLOGY Eosinophils 1.6 0.0 - 4.0 02/11 The [facility] HEMATOLOGY Lymphocytes 1.9 1.0 - 5.5 02/11 The # [facility] HEMATOLOGY Lymphocytes 17.0 20.0 - 02/11 The 40.0 [facility] HEMATOLOGY Hct 28.9 42.0 - 02/11 The 54.0 [facility] HEMATOLOGY MCHC 33.6 32.0 - 02/11 The 36.0 [facility] HEMATOLOGY RDW 14.6 11.5 - 02/11 The 14.5 [facility] HEMATOLOGY MCV 96.6 80.0 - 02/11 The 94.0 /2015 [facility] HEMATOLOGY MCH 32.4 27.0 - 02/11 The 31.0 [facility] HEMATOLOGY Hgb 9.7 14.0 - 02/11 The 18.0 [facility] HEMATOLOGY WBC 11.1 3.7 - 10.4 02/11 The /2015 [facility] HEMATOLOGY RBC 2.99 4.70 - 02/11 The 6.10 [facility] HEMATOLOGY Platelet 360 133 - 450 02/11 The [facility] HEMATOLOGY MPV 7.4 7.4 - 10.4 02/11 The [facility] TOXICOLOGY Vanco Tr 10.9 02/10 The [facility] TOXICOLOGY Vanco Tr TND TBD 02/10 The [facility] HEMATOLOGY Basophils # 0.1 0.0 - 0.2 02/09 [facility] TOXICOLOGY Vanco Lvl 14.1 02/09 The [facility] HEMATOLOGY Sed Rate >100 0 - 15 02/08 The [facility] BLOOD BANK Antibody Negative 02/07 The RESULTS Scrn (02/08/16 5:38 AM) [facility] BLOOD BANK ABO/Rh B POS 02/07 The RESULTS [facility] CHEM PANEL Procalcitoni 0.11 0.00 - 02/07 The n Lvl 0.10 [facility] URINE AND UA Sq Epi None Seen 02/04 The STOOL /2015 [facility] URINE AND UA <=1.0 0.1 - 1.0 02/04 The STOOL Urobilinogen mg/dL [facility] URINE AND UA Leuk Est Negative Negative 02/04 The STOOL (02/05/16 12:36 AM) /2015 [facility] URINE AND UA Bacteria Occasional None Seen 02/04 The STOOL /HPF /HPF [facility] URINE AND UA WBC 1 0 - 5 02/04 The STOOL /2015 [facility] URINE AND UA Blood Negative Negative 02/04 The STOOL (02/05/16 12:36 AM) /2015 [facility] URINE AND UA Bili Negative Negative 02/04 The STOOL *NA* /2015 [facility] (02/05/16 12:36 AM) URINE AND UA Nitrite Negative Negative 02/04 The STOOL (02/05/16 12:36 AM) [facility] URINE AND UA Glucose Negative Negative 02/04 The STOOL mg/dL mg/dL [facility] URINE AND UA Protein Negative Negative 02/04 The STOOL mg/dL mg/dL [facility] URINE AND UA Turbidity Clear Clear 02/04 The STOOL (02/05/16 12:36 AM) /2015 [facility] URINE AND UA pH 6.0 5.0 - 8.0 02/04 The STOOL /2015 [facility] URINE AND UA Color Light Yellow Yellow 02/04 The STOOL *NA* /2015 [facility] (02/05/16 12:36 AM) URINE AND UA Ketones Negative Negative 02/04 The STOOL mg/dL mg/dL [facility] URINE AND UA Spec Grav 1.006 <=1.030 02/04 The STOOL [facility] URINE AND UA Sq Epi None Seen 09/06 MH The STOOL /2015 [facility] URINE AND UA <=1.0 0.1 - 1.0 01/31 MH The STOOL Urobilinogen mg/dL [facility] URINE AND UA Blood Negative Negative 01/31 The STOOL (02/01/16 4:31 PM) /2015 [facility] URINE AND UA Nitrite Negative Negative 01/31 The STOOL (02/01/16 4:31 PM) /2015 [facility] URINE AND UA Leuk Est Negative Negative 01/31 The STOOL (02/01/16 4:31 PM) /2015 [facility] URINE AND UA WBC 1 0 - 5 01/31 MH The STOOL /2015 [facility] URINE AND UA Hyal Cast 3 0 - 2 01/31 MH The STOOL /2015 [facility] URINE AND UA pH 5.5 5.0 - 8.0 01/31 The STOOL /2015 [facility] URINE AND UA Glucose Negative Negative 01/31 The STOOL mg/dL mg/dL [facility] URINE AND UA Ketones Negative Negative 01/31 The STOOL mg/dL mg/dL [facility] URINE AND UA Bili Negative Negative 01/31 The STOOL *NA* /2015 [facility] (02/01/16 4:31 PM) URINE AND UA Protein Negative Negative 01/31 The STOOL mg/dL mg/dL [facility] URINE AND UA Color Yellow Yellow 01/31 The STOOL *NA* /2015 [facility] (02/01/16 4:31 PM) URINE AND UA Turbidity Clear Clear 01/31 The STOOL (02/01/16 4:31 PM) [facility] URINE AND UA Spec Grav 1.007 <=1.030 01/31 The STOOL [facility] URINE CHEM U Chloride 41 01/31 The [facility] URINE CHEM U Creatinine 70.40 01/31 The [facility] URINE CHEM U Sodium 38 01/31 The [facility] CARDIAC Troponin-I <0.02 0.00 - 01/30 The ENZYMES 0.40 [facility] CHEM PANEL Procalcitoni 0.13 0.00 - 01/30 The n Lvl 0.10 [facility] CHEM PANEL Lactic Acid 1.7 0.5 - 2.2 09 The Lvl [facility] CHEM PANEL Bili Total 0.4 0.2 - 1.3 09/05 MH The [facility] CHEM PANEL Total 7.7 6.4 - 8.4 09 The Protein [facility] CHEM PANEL AST 19 0 - 37 09 MH The [facility] CHEM PANEL ALT 23 0 - 65 09 The [facility] CHEM PANEL Alk Phos 58 39 - 136 09 MH The [facility] CHEM PANEL Albumin Lvl 2.8 3.5 - 5.0 09/ The [facility] CHEM PANEL A/G Ratio 0.6 0.7 - 1.6 09/05 The [facility] CHEM PANEL Globulin 4.9 2.7 - 4.2 09 The [facility] CHEM PANEL B/C Ratio 15 6 - 25 09 The [facility] HEMATOLOGY PTT 42.4 22.9 - 01/30 The 35.8 [facility] HEMATOLOGY PT 14.6 12.0 - 01/30 MH The 14.7 [facility] HEMATOLOGY INR 1.11 0.85 - 01/30 The 1.17 [facility] LIPIDS VLDL 77 02/16 The [facility] LIPIDS HDL 29 >=61 mg/dL 02/16 The [facility] LIPIDS Chol 222 <=199 02/16 MH The mg/dL [facility] LIPIDS CHD Risk 7.66 4.00 - 02/16 MH The 7.30 [facility] LIPIDS Trig 384 <=149 02/16 MH The mg/dL [facility] LIPIDS LDL 116 <=99 mg/dL 02/16 The (Calculated) [facility] CARDIAC CK MB Index 0.8 0.0 - 2.5 02/16 MH The ENZYMES [facility] CARDIAC CK MB 0.6 0.5 - 3.6 02/16 MH The ENZYMES [facility] CARDIAC Troponin-I <0.02 0.00 - 02/16 MH The ENZYMES 0.40 [facility] CARDIAC Total CK 76 12 - 191 02/16 MH The ENZYMES [facility] CARDIAC Troponin-I <0.02 0.00 - 02/16 MH The ENZYMES 0.40 [facility] CARDIAC Total CK 89 12 - 191 02/16 MH The ENZYMES [facility] CARDIAC CK MB Index 1.0 0.0 - 2.5 02/16 MH The ENZYMES [facility] CARDIAC CK MB 0.9 0.5 - 3.6 02/16 MH The ENZYMES /2014 [facility] THYROID TSH 2.000 0.360 - 02/16 MH The PANEL 3.740 /2014 [facility] CARDIAC CK MB Index 0.8 0.0 - 2.5 02/15 MH The ENZYMES [facility] CARDIAC Troponin-I <0.02 0.00 - 02/15 MH The ENZYMES 0.40 /2014 [facility] CARDIAC Total CK 111 12 - 191 02/15 MH The ENZYMES [facility] CARDIAC CK MB 0.9 0.5 - 3.6 02/15 MH The ENZYMES /2014 [facility] CHEM PANEL eGFR 70 02/15 [facility] Comment: [place] eGFR is calculated using the CKD-EPI formula. [...] 87 39 - 136 02/15 MH The [facility] CHEM PANEL AST 23 0 - 37 02/15 The [facility] CHEM PANEL ALT 27 0 - 65 02/15 MH The [facility] CHEM PANEL Albumin Lvl 3.4 3.5 - 5.0 02/15 The [facility] CHEM PANEL Total 7.7 6.4 - 8.4 02/15 The Protein [facility] CHEM PANEL A/G Ratio 0.8 0.7 - 1.6 02/15 The [facility] CHEM PANEL Globulin 4.3 2.0 - 4.0 02/15 The [facility] CHEM PANEL B/C Ratio 6 6 - 25 02/15 The [facility] CHEM PANEL AGAP 11.8 10.0 - 02/15 The 20.0 [facility] CHEM PANEL Bili Total 0.4 0.2 - 1.3 02/15 The [facility] CHEM PANEL Calcium Lvl 9.2 8.5 - 10.5 02/15 The [facility] CHEM PANEL CO2 25 24 - 32 02/15 The [facility] CHEM PANEL Glucose Lvl 88 70 - 99 02/15 The [facility] CHEM PANEL Chloride Lvl 106 95 - 109 02/15 The [facility] CHEM PANEL Potassium 4.8 3.5 - 5.1 02/15 The [facility] CHEM PANEL Sodium Lvl 138 135 - 145 02/15 The [facility] CHEM PANEL Creatinine 1.2 0.5 - 1.4 02/15 The [facility] CHEM PANEL BUN 7 7 - 22 02/15 The [facility] CHEM PANEL Magnesium 2.0 1.8 - 2.4 02/15 The [facility] HEMATOLOGY Eosinophils 0.4 0.0 - 0.5 02/15 The # [facility] HEMATOLOGY Basophils # 0.0 0.0 - 0.2 02/15 The [facility] HEMATOLOGY Segs-Bands # 4.6 1.5 - 8.1 02/15 The [facility] HEMATOLOGY Monocytes # 0.8 0.0 - 0.8 02/15 The [facility] HEMATOLOGY Monocytes 10.3 2.0 - 12.0 02/15 The [facility] HEMATOLOGY Eosinophils 5.0 0.0 - 4.0 02/15 The [facility] HEMATOLOGY Basophils 0.4 0.0 - 1.0 02/15 The [facility] HEMATOLOGY Lymphocytes 25.7 20.0 - 02/15 The 40.0 [facility] HEMATOLOGY Lymphocytes 2.0 1.0 - 5.5 02/15 MH The # [facility] HEMATOLOGY Segs 58.6 45.0 - 02/15 MH The 75.0 [facility] HEMATOLOGY INR 1.00 0.85 - 02/15 MH The 1.17 [facility] HEMATOLOGY PT 13.5 12.0 - 02/15 The 14.7 [facility] HEMATOLOGY PTT 33.7 22.9 - 02/15 The 35.8 [facility] HEMATOLOGY Platelet 170 133 - 450 02/15 The [facility] HEMATOLOGY WBC 7.8 3.7 - 10.4 02/15 The [facility] HEMATOLOGY MCH 33.3 27.0 - 02/15 The 31.0 [facility] HEMATOLOGY RBC 4.62 4.70 - 02/15 The 6.10 [facility] HEMATOLOGY MCV 97.4 80.0 - 02/15 The 94.0 [facility] HEMATOLOGY Hgb 15.4 14.0 - 02/15 The 18.0 [facility] HEMATOLOGY Hct 45.0 42.0 - 02/15 The 54.0 [facility] HEMATOLOGY MCHC 34.2 32.0 - 02/15 The 36.0 [facility] HEMATOLOGY MPV 7.0 7.4 - 10.4 02/15 The [facility] HEMATOLOGY RDW 16.0 11.5 - 02/15 The 14.5 [facility] DRUG U Cocaine Negative Negative 01/23 The SCREEN Scr *NA* [facility] (01/23/15 3:10 PM) DRUG U Opiate Scr Negative Negative 01/23 The SCREEN *NA* [facility] (01/23/15 3:10 PM) DRUG U Cannab Scr Negative Negative 01/23 The SCREEN [facility] (01/23/15 3:10 PM) DRUG U Phencyc Negative Negative 01/23 The SCREEN Scr *NA* [facility] (01/23/15 3:10 PM) DRUG UDS Note See Note 01/23 The SCREEN (01/23/15 3:10 PM) /2014 [facility] DRUG U Shoshana Scr Negative Negative 01/23 The SCREEN *NA* [facility] (01/23/15 3:10 PM) DRUG U Benzodia Positive Negative 01/23 The SCREEN Scr *ABN* [facility] (01/23/15 3:10 PM) DRUG U Amph Scr Negative Negative 01/23 The SCREEN *NA* [facility] (01/23/15 3:10 PM) URINE AND UA <=1.0 0.1 - 1.0 01/23 The STOOL Urobilinogen mg/dL /2014 [facility] URINE AND UA Glucose Negative Negative 01/23 MH The STOOL mg/dL mg/dL [facility] URINE AND UA Sq Epi Few /LPF Few /LPF 01/23 The STOOL /2014 [facility] URINE AND UA Leuk Est Negative Negative 01/23 The STOOL (01/23/15 3:10 PM) /2014lands URINE AND UA Nitrite Negative Negative 01/23 MH The STOOL (01/23/15 3:10 PM) /2014 [facility] URINE AND UA Bacteria Occasional None Seen 01/23 The STOOL /HPF /HPF [facility] URINE AND UA RBC 3 0 - 2 01/23 MH The STOOL /2014 [facility] URINE AND UA WBC <1 0 - 5 01/23 The STOOL /2014 [facility] URINE AND UA Hyal Cast 5 0 - 2 01/23 The STOOL /2014[facility] URINE AND UA Amorph Occasional None Seen 01/23 The STOOL Brisa /HPF /HPF lands URINE AND UA Mucus Few /LPF None Seen 01/23 The STOOL /LPF /2014 [facility] URINE AND UA Color Yellow Yellow 01/23 The STOOL *NA* /2014 [facility] (01/23/15 3:10 PM) URINE AND UA Protein 200 mg/dL Negative 01/23 The STOOL mg/dL [facility] URINE AND UA pH 6.0 5.0 - 8.0 01/23 The STOOL [facility] URINE AND UA Spec Grav 1.017 <=1.030 01/23 The STOOL [facility] URINE AND UA Turbidity Slight Clear 01/23 The STOOL *ABN* /2014 [facility] (01/23/15 3:10 PM) URINE AND UA Blood Moderate Negative 01/23 The STOOL *ABN* /2014 [facility] (01/23/15 3:10 PM) URINE AND UA Bili Negative Negative 01/23 The STOOL *NA* /2014 [facility] (01/23/15 3:10 PM) URINE AND UA Ketones Trace Negative 01/23 The STOOL mg/dL mg/dL [facility] URINE AND UA Sperm Occasional None Seen 01/23 The STOOL /HPF /HPF [facility] CARDIAC CK MB Index 0.7 0.0 - 2.5 01/23 The ENZYMES /2014 [facility] CARDIAC Troponin-I <0.02 0.00 - 01/23 The ENZYMES 0.40 [facility] CARDIAC Total CK 170 12 - 191 08/29 MH The ENZYMES /2014 [facility] CARDIAC CK MB 1.2 0.5 - 3.6 01/23 The ENZYMES [facility] CHEM PANEL eGFR 54 01/23 [facility] Comment: [place] eGFR is calculated using the CKD-EPI formula. [...] A/G Ratio 1.0 0.7 - 1.6 01/23 [facility] CHEM PANEL AST 23 0 - 37 01/23 The [facility] CHEM PANEL Albumin Lvl 4.3 3.5 - 5.0 01/23 The [facility] CHEM PANEL ALT 39 0 - 65 01/23 MH The [facility] CHEM PANEL Total 8.8 6.4 - 8.4 01/23 MH The Protein [facility] CHEM PANEL Calcium Lvl 9.3 8.5 - 10.5 01/23 The [facility] CHEM PANEL AGAP 20.5 10.0 - 01/23 MH The 20.0 [facility] CHEM PANEL Globulin 4.5 2.0 - 4.0 01/23 MH The [facility] CHEM PANEL B/C Ratio 10 6 - 25 01/23 MH [facility] CHEM PANEL Bili Total 0.5 0.2 - 1.3 01/23 The [facility] CHEM PANEL Alk Phos 88 39 - 136 01/23 The [facility] CHEM PANEL Potassium 4.5 3.5 - 5.1 01/23 MH The Lvl [facility] CHEM PANEL Sodium Lvl 139 135 - 145 01/23 The [facility] CHEM PANEL CO2 17 24 - 32 01/23 The [facility] CHEM PANEL Chloride Lvl 106 95 - 109 01/23 The [facility] CHEM PANEL Glucose Lvl 114 70 - 99 01/23 The [facility] CHEM PANEL Creatinine 1.5 0.5 - 1.4 01/23 The Lvl [facility] CHEM PANEL BUN 15 7 - 22 01/23 The [facility] HEMATOLOGY Segs 89.7 45.0 - 01/23 The 75.0 [facility] HEMATOLOGY Segs-Bands # 11.6 1.5 - 8.1 01/23 The [facility] HEMATOLOGY Lymphocytes 0.8 1.0 - 5.5 01/23 The [facility] HEMATOLOGY Lymphocytes 6.5 20.0 - 01/23 The 40.0 [facility] HEMATOLOGY Monocytes 3.2 2.0 - 12.0 01/23 The [facility] HEMATOLOGY Monocytes # 0.4 0.0 - 0.8 01/23 The [facility] HEMATOLOGY Eosinophils 0.0 0.0 - 0.5 01/23 The [facility] HEMATOLOGY Basophils # 0.1 0.0 - 0.2 01/23 The [facility] HEMATOLOGY Eosinophils 0.2 0.0 - 4.0 01/23 The [facility] HEMATOLOGY Basophils 0.4 0.0 - 1.0 01/23 The [facility] HEMATOLOGY PT 14.2 12.0 - 01/23 The 14. [facility] HEMATOLOGY INR 1.07 0.85 - 01/23 The 1.17 [facility] HEMATOLOGY PTT 31.2 22.9 - 01/23 The 35.8 [facility] HEMATOLOGY MPV 8.3 7.4 - 10.4 01/23 The [facility] HEMATOLOGY MCHC 32.8 32.0 - 01/23 The 36.0 [facility] HEMATOLOGY RDW 17.0 11.5 - 01/23 The 14. [facility] HEMATOLOGY Platelet 202 133 - 450 01/23 The [facility] HEMATOLOGY Hct 51.7 42.0 - 01/23 The 54.0 [facility] HEMATOLOGY MCV 97.9 80.0 - 01/23 The 94.0 [facility] HEMATOLOGY MCH 32.1 27.0 - 01/23 The 31.0 [facility] HEMATOLOGY Hgb 17.0 14.0 - 01/23 The 18.0 [facility] HEMATOLOGY WBC 12.9 3.7 - 10.4 01/23 [facility] HEMATOLOGY RBC 5.28 4.70 - 01/23 The 6.10 [facility] TOXICOLOGY Etoh (%) <0.003 01/23 [facility] TOXICOLOGY Ethanol Lvl <3 01/23 [facility] CHEM PANEL eGFR 71 11/20 <sup>1</sup>R [facility] Comment: The eGFR is calculated using the [...] Total 0.3 0.2 - 1.3 11/20 The [facility] CHEM PANEL AST 18 0 - 37 11/20 [facility] CHEM PANEL Alk Phos 88 39 - 136 11/20 The [facility] CHEM PANEL ALT 36 0 - 65 11/20 The [facility] CHEM PANEL Albumin Lvl 4.0 3.5 - 5.0 11/20 The [facility] CHEM PANEL Total 8.8 6.4 - 8.4 11/20 The Protein [facility] CHEM PANEL CO2 22 24 - 32 11/20 [facility] CHEM PANEL Calcium Lvl 9.5 8.5 - 10.5 11/20 [facility] CHEM PANEL Chloride Lvl 103 95 - 109 11/20 The [facility] CHEM PANEL Sodium Lvl 135 135 - 145 11/20 The [facility] CHEM PANEL Potassium 4.2 3.5 - 5.1 11/20 The [facility] CHEM PANEL Creatinine 1.2 0.5 - 1.4 11/20 The [facility] CHEM PANEL Glucose Lvl 110 70 - 99 11/20 <sup>4</sup>I The nterpretive [facility] Data: Adult reference range values reflect the clinical guidelines
of the [place] [employer]. CHEM PANEL BUN 7 7 - 22 11/20 The [facility] CHEM PANEL Globulin 4.8 2.0 - 4.0 11/20 The [facility] CHEM PANEL A/G Ratio 0.8 0.7 - 1.6 11/20 The [facility] CHEM PANEL B/C Ratio 6 6 - 25 11/20 The [facility] CHEM PANEL AGAP 14.2 10.0 - 11/20 The 20.0 [facility] HEMATOLOGY Eosinophils 3.2 0.0 - 4.0 11/20 The [facility] HEMATOLOGY Lymphocytes 16.7 20.0 - 11/20 The 40.0 [facility] HEMATOLOGY Monocytes 6.2 2.0 - 12.0 11/20 The [facility] HEMATOLOGY Segs 73.3 45.0 - 11/20 The 75.0 [facility] HEMATOLOGY Basophils 0.6 0.0 - 1.0 11/20 The [facility] HEMATOLOGY Basophils # 0.1 0.0 - 0.2 11/20 The [facility] HEMATOLOGY Eosinophils 0.3 0.0 - 0.5 11/20 The # [facility] HEMATOLOGY Monocytes # 0.6 0.0 - 0.8 11/20 The [facility] HEMATOLOGY Lymphocytes 1.6 1.0 - 5.5 11/20 The [facility] HEMATOLOGY Segs-Bands # 6.8 1.5 - 8.1 11/20 The [facility] HEMATOLOGY Platelet 170 133 - 450 11/20 The [facility] HEMATOLOGY MPV 7.6 7.4 - 10.4 11/20 [facility] HEMATOLOGY MCHC 33.8 32.0 - 11/20 The 36.0 [facility] HEMATOLOGY RDW 14.2 11.5 - 11/20 The 14. [facility] HEMATOLOGY MCH 33.1 27.0 - 11/20 The 31. [facility] HEMATOLOGY MCV 97.9 80.0 - 11/20 The 94.0 [facility] HEMATOLOGY Hgb 14.2 14.0 - 11/20 The 18.0 [facility] HEMATOLOGY Hct 42.1 42.0 - 11/20 The 54.0 [facility] HEMATOLOGY WBC 9.3 3.7 - 10.4 11/20 [facility] HEMATOLOGY RBC 4.30 4.70 - 11/20 The 6. [facility] TOXICOLOGY Vanco Tr TND unknown 11/20 [facility] TOXICOLOGY Vanco Tr 7.7 11/20 <sup>5</sup>I nterpretive [facility] Data: Therapeutic Range:
Trough: 10 - 20 ug/mL
Peak: 20 - 40 ug/mL
Potential Toxicity: >80 ug/mL CHEM PANEL eGFR 47 11/17 <sup>2</sup>R [facility] Comment: The eGFR is calculated using the [...] Creatinine 1.7 0.5 - 1.4 11/17 The [facility] CHEM PANEL BUN 14 7 - 22 11/17 The [facility] ELECTROLYT Potassium 4.3 3.5 - 5.1 11/17 The ES Lvl [facility] HEMATOLOGY Hct 36.8 42.0 - 11/17 The 54.0 [facility] HEMATOLOGY MCV 97.6 80.0 - 11/17 The 94.0 [facility] HEMATOLOGY MCH 33.2 27.0 - 11/17 The 31.0 [facility] HEMATOLOGY Hgb 12.5 14.0 - 11/17 The 18.0 [facility] HEMATOLOGY WBC 7.7 3.7 - 10.4 11/17 The [facility] HEMATOLOGY RBC 3.77 4.70 - 11/17 The 6.10 [facility] HEMATOLOGY RDW 14.0 11.5 - 11/17 The 14.5 [facility] HEMATOLOGY Platelet 155 133 - 450 11/17 The [facility] HEMATOLOGY MPV 7.7 7.4 - 10.4 11/17 The [facility] HEMATOLOGY MCHC 34.0 32.0 - 11/17 The 36.0 [facility] HEMATOLOGY Segs-Bands # 5.7 1.5 - 8.1 11/17 The [facility] HEMATOLOGY Eosinophils 4.3 0.0 - 4.0 11/17 The [facility] HEMATOLOGY Basophils # 0.0 0.0 - 0.2 11/17 The [facility] HEMATOLOGY Basophils 0.3 0.0 - 1.0 11/17 The [facility] HEMATOLOGY Monocytes 5.1 2.0 - 12.0 11/17 The [facility] HEMATOLOGY Lymphocytes 16.3 20.0 - 11/17 The 40.0 [facility] HEMATOLOGY Lymphocytes 1.2 1.0 - 5.5 11/17 The # [facility] HEMATOLOGY Eosinophils 0.3 0.0 - 0.5 11/17 The # [facility] HEMATOLOGY Monocytes # 0.4 0.0 - 0.8 11/17 The [facility] HEMATOLOGY Segs 74.0 45.0 - 11/17 The 75.0 [facility] TOXICOLOGY Vanco Tr TND unknown 11/17 The [facility] TOXICOLOGY Vanco Tr 24.4 11/17 <sup>6</sup>I nterpretive [facility] Data: Therapeutic Range:
Trough: 10 - 20 ug/mL
Peak: 20 - 40 ug/mL
Potential Toxicity: >80 ug/mL CHEM PANEL eGFR 54 11/13 <sup>3</sup>R [facility] Comment: The eGFR is calculated using the [...] Creatinine 1.5 0.5 - 1.4 11/13 The [facility] CHEM PANEL BUN 11 7 - 22 11/13 [facility] ELECTROLYT Potassium 4.5 3.5 - 5.1 11/13 The [facility] HEMATOLOGY MCH 32.7 27.0 - 11/13 The 31.0 [facility] HEMATOLOGY MCHC 33.6 32.0 - 11/13 The 36.0 [facility] HEMATOLOGY Platelet 186 133 - 450 11/13 [facility] HEMATOLOGY RDW 14.0 11.5 - 11/13 The 14. [facility] HEMATOLOGY MPV 7.4 7.4 - 10.4 11/13 [facility] HEMATOLOGY Hgb 12.2 14.0 - 11/13 The 18.0 [facility] HEMATOLOGY RBC 3.73 4.70 - 11/13 The 6.10 [facility] HEMATOLOGY MCV 97.6 80.0 - 11/13 The 94.0 [facility] HEMATOLOGY Hct 36.4 42.0 - 11/13 The 54.0 [facility] HEMATOLOGY WBC 9.7 3.7 - 10.4 11/13 The [facility] HEMATOLOGY Basophils # 0.1 0.0 - 0.2 11/13 The [facility] HEMATOLOGY Lymphocytes 2.0 1.0 - 5.5 11/13 The [facility] HEMATOLOGY Monocytes # 0.7 0.0 - 0.8 11/13 The [facility] HEMATOLOGY Eosinophils 0.4 0.0 - 0.5 11/13 The # [facility] HEMATOLOGY Basophils 0.6 0.0 - 1.0 11/13 The [facility] HEMATOLOGY Segs-Bands # 6.6 1.5 - 8.1 11/13 The [facility] HEMATOLOGY Lymphocytes 20.5 20.0 - 11/13 The 40.0 [facility] HEMATOLOGY Monocytes 7.3 2.0 - 12.0 11/13 The [facility] HEMATOLOGY Eosinophils 3.7 0.0 - 4.0 11/13 The [facility] HEMATOLOGY Segs 67.9 45.0 - 11/13 The 75.0 [facility] TOXICOLOGY Vanco Tr TND NA 11/13 [facility] TOXICOLOGY Vanco Tr 24.1 11/13 <sup>7</sup>I nterpretive [facility] Data: Therapeutic Range:
Trough: 10 - 20 ug/mL
Peak: 20 - 40 ug/mL
Potential Toxicity: >80 ug/mL Pathology Reports No Data Provided for This Section Diagnostic Reports Report Value Date Source Ext Lower Venous Doppler Study: Ext Lower Venous Doppler Bilat US 03/13/2016 11:06 PM CDT 03/13/2016 [facility] Bil US Ordering Physician: Blanche Diaz MD [...] no evidence for deep venous thrombosis. SL: [id number] Chest 1view DX Study: Chest 1view DX 03/13/2016 11:18 PM CDT 03/13/2016 [facility] Ordering Physician: Blanche Diaz MD Clinical Indication: [...] no pneumothorax. No acute cardiopulmonary disease. SL: [id number] Chest 1view DX Clinical Indication: Fever; 02/15/2016 [facility] Comparison: 02/15/2015 FINDINGS: AP chest radiographs shows normal lung volumes without interstitial or airspace opacities, pleural effusions or pneumothorax. The heart size and pulmonary vasculature are normal. The trachea is midline. There are no clinically significant osseous abnormalities noted. IMPRESSION: No chest radiographic evidence of acute cardiopulmonary disease. SL: [id number] Foot series DX Clinical Indication: Pain and swelling. Post surgery. 2015 [facility] Comparison: 01/31/2016. FINDINGS: The 4 views of [...] post transmetatarsal amputation, as noted above. SL: [id number] Abdominal Aorta with Clinical Indication: Gangrene; right foot gangrene. 12/2015 [facility] runoff CTA Comparison: None TECHNIQUE: CT angiography [...] 5th MCP is concerning for osteomyelitis. SL: [id number] Retroperitoneal limited Clinical Indication: Renal insufficiency 02/01/2016 [facility] [place] Comparison: None TECHNIQUE: Multiple longitudinal and [...] with hematuria or urinary tract infection. SL: [id number] Ext Lower Arterial Clinical Indication: Right leg claudication and leg ulcer. 01/31/2016 [facility] Doppler unilat [place] Comparison: None TECHNIQUE: Sonographic evaluation of the right lower extremity arteries was performed with grayscale and color Doppler imaging with standard technique. FINDINGS: RIGHT: ENGINE HOUSE HELPER: Monophasic waveforms with severely decreased peak systolic velocities. SFA: Monophasic waveforms. Spectral broadening. Mildly decreased peak systolic velocities. This may be related to collateral flow. POP: Monophasic waveforms. Spectral broadening with moderately decreased peak systolic velocities. SOFTWARE QA MANAGER: Monophasic waveforms. Spectral broadening with severely decreased [...] or conventional angiography for complete assessment. SL: [id number] Foot series DX Clinical Indication: Pain and swelling , status post amputation 4 years ago 01/31/2016 [facility] Comparison: None FINDINGS: 3 views of the [...] the right foot may be beneficial. SL: [id number] Chest 2 views DX NAME: REMEDIOS SANCHEZ 02/15/2015 [facility] : 1965 SEX: M Ordering Physician: Jaciel [...] Wrist complete DX NAME: REMEDIOS SANCHEZ 02/09/2015 [facility] : 1965 SEX: M Ordering Physician: Víctor [...] wo contrast CT Name: REMEDIOS SANCHEZ 01/23/2015 [facility] : 1965 SEX: M Ordering Physician: Tim [...] Comments Source Systolic (mm Hg) 84 04/05/2016 [place] Diastolic (mm Hg) 47 04/05/2016 [place] Respitory Rate 18 04/05/2016 [place] Heart Rate 76 04/05/2016 [place] Systolic (mm Hg) 80 04/05/2016 [place] Diastolic (mm Hg) 49 04/05/2016 [place] Respitory Rate 18 04/05/2016 [place] Heart Rate 73 04/05/2016 [place] Respitory Rate 18 04/05/2016 [place] Heart Rate 72 04/05/2016 [facility] Systolic (mm Hg) 79 04/05/2016 [facility] [place] Diastolic (mm Hg) 42 04/05/2016 [place] Temperature Oral (F) 97.7 F 04/05/2016 [place] Temperature Oral (F) 97.7 F 04/05/2016 [place] Temperature Oral (F) 98.2 F 04/05/2016 [place] Weight 98.6 04/05/2016 [place] BMI Calculated 28.81 04/05/2016 [place] Height 185 cm 04/05/2016 [place] Respitory Rate 18 03/14/2016 [place] Systolic (mm Hg) 119 03/14/2016 [place] Diastolic (mm Hg) 63 03/14/2016 [place] Systolic (mm Hg) 124 03/14/2016 [place] Diastolic (mm Hg) 58 03/14/2016 [place] Respitory Rate 16 03/14/2016 [place] Temperature Oral (F) 98.8 F 03/14/2016 [place] Respitory Rate 18 03/14/2016 [place] Systolic (mm Hg) 129 03/14/2016 [place] Diastolic (mm Hg) 62 03/14/2016 [place] Temperature Oral (F) 98.7 F 03/14/2016 [place] Heart Rate 95 03/14/2016 [place] BMI Calculated 28.69 03/13/2016 [place] Weight 98.636 03/13/2016 [place] Temperature Oral (F) 98.6 F 03/13/2016 [place] Height 185.42 cm 03/13/2016 [place] Heart Rate 105 03/13/2016 [place] Heart Rate 111 02/18/2016 [place] Temperature Oral (F) 98.8 F 02/18/2016 [place] Respitory Rate 18 02/18/2016 [place] Systolic (mm Hg) 110 02/18/2016 [place] Diastolic (mm Hg) 56 02/18/2016 [place] Temperature Oral (F) 98.3 F 02/18/2016 [place] Heart Rate 97 02/18/2016 [place] Systolic (mm Hg) 94 02/18/2016 [place] Diastolic (mm Hg) 56 02/18/2016 [place] Respitory Rate 18 02/18/2016 [place] Temperature Oral (F) 98.2 F 02/18/2016 [place] Heart Rate 86 02/18/2016 [facility] [place] Systolic (mm Hg) 112 02/18/2016 [facility] [place] Diastolic (mm Hg) 54 02/18/2016 [facility] [place] Respitory Rate 18 02/18/2016 [place] Weight 96.023 02/08/2016 [facility] [place] BMI Calculated 28.69 02/08/2016 [facility] [place] Weight 98.636 02/08/2016 [facility] [place] Height 185.42 cm 02/08/2016 [facility] [place] Weight 97.273 02/01/2016 [facility] [place] BMI Calculated 28.29 02/01/2016 [facility] [place] Height 185.42 cm 02/01/2016 [facility] [place] Height 185.42 cm 01/31/2016 [facility] [place] BMI Calculated 27.63 01/31/2016 [place] Respitory Rate 16 02/16/2015 [place] Temperature Oral (F) 98.0 F 02/16/2015 [place] Respitory Rate 18 02/16/2015 [place] Heart Rate 77 02/16/2015 [facility] [place] Systolic (mm Hg) 175 02/16/2015 [facility] [place] Diastolic (mm Hg) 94 02/16/2015 [place] Temperature Oral (F) 98.2 F 02/16/2015 [place] Heart Rate 74 02/16/2015 [facility] [place] Systolic (mm Hg) 164 02/16/2015 [facility] [place] Diastolic (mm Hg) 89 02/16/2015 [place] Respitory Rate 18 02/16/2015 [place] Temperature Oral (F) 97.5 F 02/16/2015 [place] Systolic (mm Hg) 145 02/16/2015 [facility] [place] Diastolic (mm Hg) 83 02/16/2015 [place] Heart Rate 72 02/16/2015 [facility] [place] Height 185.42 cm 02/16/2015 [facility] [place] BMI Calculated 28.58 02/16/2015 [facility] [place] Weight 98.267 02/16/2015 [facility] [place] Weight 13.636 02/15/2015 [facility] [place] BMI Calculated 3.97 02/15/2015 [facility] [place] Height 185.42 cm 02/15/2015 [place] Temperature Oral (F) 98.2 F 02/09/2015 [place] Heart Rate 88 02/09/2015 [facility] [place] Respitory Rate 18 02/09/2015 [facility] [place] Systolic (mm Hg) 173 02/09/2015 [facility] [place] Diastolic (mm Hg) 82 02/09/2015 [place] BMI Calculated 31.47 02/09/2015 [place] Weight 108.182 02/09/2015 [place] Height 185.42 cm 02/09/2015 [facility] [place] Systolic (mm Hg) 189 02/09/2015 [facility] [place] Diastolic (mm Hg) 97 02/09/2015 [place] Heart Rate 77 02/09/2015 [facility] [place] Respitory Rate 16 02/09/2015 [facility] [place] Systolic (mm Hg) 172 01/23/2015 [facility] [place] Diastolic (mm Hg) 79 01/23/2015 [facility] [place] Systolic (mm Hg) 174 01/23/2015 [facility] [place] Diastolic (mm Hg) 92 01/23/2015 [place] Systolic (mm Hg) 184 01/23/2015 [facility] [place] Diastolic (mm Hg) 86 01/23/2015 [facility] [place] Respitory Rate 18 01/23/2015 [facility] [place] Weight 104.545 01/23/2015 [facility] [place] Height 185.42 cm 01/23/2015 [place] BMI Calculated 30.41 01/23/2015 [facility] [place] Respitory Rate 18 01/23/2015 [place] Heart Rate 92 01/23/2015 [place] Temperature Oral (F) 98.5 F 01/23/2015 [place] Encounters Location Location Encounter Encounter Reason Attending ADM DC Status Source Details Type Number For Provider Date Date Visit [facility] OP Recurring [id number] Nabeel 10/31 11/30 [facility] [place] [facility]2013 [facility] EC Emergency [id number] Edozie 01/23 01/23 [facility] [place] Lisandra /2014 [facility] EC Emergency [id number] Az Lititz 02/09 02/09 [facility] [place] /2014 [facility] OBS [id number] Juan 02/15 02/16 [facility] [place] /2014 [place] [facility] Inpatient [id number] Abbas 01/30 02/17 [facility] [place] /2015 [facility] Emergency [id number] Blanche 03/13 03/14 [facility] /2015 [facility] Outpatient [id number] Abbas 04/05 04/06 [facility] Procedures Procedure Code Date Perfomer Comments Source Amputation of toe [id number] [place] Amputation of 720189696 2 toes The toe<sup>1</sup> [facility] Blood transfusion [id number] [facility] Assessment and Plan Assessment and Plan Date Source Extracted from:Title: id 02/18/2016 [facility] Author: Rogerio Ruggiero DO Date: 02/18/16 Impression and Plan The patient was seen and examined by me with 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 Extracted from:Title: Dr. Eugene Podiatry Consultation Author: Lise Eugene DPM Date: 02/10/16 Impression and Plan Diagnosis Gangrene of foot ([id number] I96, Working, Medical). PVD (peripheral vascular disease) (EKT26-UD I73.9, Working, Medical). Course: Worsening. - PLAN [...] for assistance Extracted from:Title: Consult Note 02/16/2015 [place] Author: Foreign Toscano MD Date: 02/16/15 Assessment/Plan [...] History Date Source Social History TypeResponse 10/21/2013 [place] Substance Abuse Previous Treatment: None. Alcohol Current, [...]
--- OUTSIDE RECORDS SUMMARY | 2019-02-06 08:04 | XMS REPORT ---
:1965 [facility] Address [address] [place] [address] [address]. [address] [place] [address] Care Team Providers Name Role Phone CLARISSA [...] Value Reference Range Comments CULTURE (BEAKER) (test vcqz=2909) No growth in 5 days BLOOD [id number] 20:01:00 Test Item Value Reference Range Comments CULTURE (BEAKER) (test oyza=2761) No growth in 5 days EEG AWAKE AND [id number] 14:49:00Reason for exam:->seizuresDate(s) of EE10/14/18DATE OF REPORT: 10/14/18ACC: [id number] Number: [id number] time: 13:36Stop time: 13:57ICD-10: R56.9 Unspecified ConvulsionsCPT Code: 65134 EEG: awake and drowsy <40 min HISTORY: [...] Fellow Anjali Floyd MDNeurophysiology/Epilepsy Attending BASI METABOLIC [id number] 07:41:00 Test Item Value Reference Range Comments SODIUM (BEAKER) (test 133 meq/L 136-145 qzjr=542) POTASSIUM (BEAKER) (test 4.1 meq/L 3.5-5.1 Specimen slightly nnbd=858) hemolyzed CHLORIDE (BEAKER) (test 103 meq/L 98-107 qqvo=818) CO2 (BEAKER) (test 19 meq/L 22-29 uami=700) BLOOD UREA NITROGEN 8 mg/dL 7-21 (BEAKER) (test xjho=648) CREATININE (BEAKER) (test 0.83 mg/dL 0.57-1.25 Specimen slightly zjma=491) hemolyzed GLUCOSE RANDOM (BEAKER) 84 mg/dL 70-105 (test nzzs=303) CALCIUM (BEAKER) (test 8.5 mg/dL 8.4-10.2 zgml=117) EGFR (BEAKER) (test 97 mL/min/1.73 sq m ESTIMATED GFR IS NOT xirh=3629) ACCURATE CREATININE CLEARANCE IN PREDICTING GLOMERULAR FILTRATION RATE. ESTIMATED GFR IS NOT APPLICABLE FOR DIALYSIS PATIENTS. CBC W/PLT COUNT & AUTO [id number] 05:30:00 Test Item Value Reference Range Comments WHITE BLOOD CELL COUNT (BEAKER) (test yvfd=582) 9.7 K/ L 3.5-10.5 RED BLOOD CELL COUNT (BEAKER) (test uifc=325) 4.44 M/ L 4.63-6.08 HEMOGLOBIN (BEAKER) (test yzuf=312) 14.9 GM/DL 13.7-17.5 HEMATOCRIT (BEAKER) (test kveb=526) 44.1 % 40.1-51.0 MEAN CORPUSCULAR VOLUME (BEAKER) (test eyys=407) 99.3 fL 79.0-92.2 MEAN CORPUSCULAR HEMOGLOBIN (BEAKER) (test 33.6 pg 25.7-32.2 iaqs=753) MEAN CORPUSCULAR HEMOGLOBIN CONC (BEAKER) (test 33.8 GM/DL 32.3-36.5 wpgz=902) RED CELL DISTRIBUTION WIDTH (BEAKER) (test 15.2 % 11.6-14.4 jcax=214) PLATELET COUNT (BEAKER) (test eycn=120) 177 K/CU MM 150-450 MEAN PLATELET VOLUME (BEAKER) (test vwjx=902) 9.7 fL 9.4-12.4 NUCLEATED RED BLOOD CELLS (BEAKER) (test 0 /100 WBC 0-0 cpgr=795) NEUTROPHILS RELATIVE PERCENT (BEAKER) (test 73 % xxyp=427) LYMPHOCYTES RELATIVE PERCENT (BEAKER) (test 16 % znmp=411) MONOCYTES RELATIVE PERCENT (BEAKER) (test 11 % cwkp=451) EOSINOPHILS RELATIVE PERCENT (BEAKER) (test 0 % kxoo=892) BASOPHILS RELATIVE PERCENT (BEAKER) (test 0 % hzry=368) NEUTROPHILS ABSOLUTE COUNT (BEAKER) (test 7.05 K/ L 1.78-5.38 oyvn=191) LYMPHOCYTES ABSOLUTE COUNT (BEAKER) (test 1.52 K/ L 1.32-3.57 qgrp=975) MONOCYTES ABSOLUTE COUNT (BEAKER) (test 1.04 K/ L 0.30-0.82 okst=493) EOSINOPHILS ABSOLUTE COUNT (BEAKER) (test 0.01 K/ L 0.04-0.54 hqno=217) BASOPHILS ABSOLUTE COUNT (BEAKER) (test 0.04 K/ L 0.01-0.08 dnjl=822) IMMATURE GRANULOCYTES-RELATIVE PERCENT (BEAKER) 0 % 0-1 (test zdux=0676) VITAMIN B12 AND [id number] 19:46:00 Test Item Value Reference Range Comments VITAMIN B12 (BEAKER) (test lpqz=396) 683 pg/mL 213-816 FOLATE (BEAKER) (test tcqk=977) > ng/mL >=7.0 [id number] 17:59:00 Test Item Value Reference Range Comments PHOSPHORUS (BEAKER) (test dyze=148) 4.0 mg/dL 2.3-4.7 [id number] 17:59:00 Test Item Value Reference Range Comments MAGNESIUM (BEAKER) (test ezyw=636) 2.5 mg/dL 1.6-2.6 CT, BRAIN, WITHOUT [id number] 16:58:00FINAL REPORT CT head without contrast. Reason [...] [place] Verified Date/Time: 10/12/2018 16:58:56 Reading Location: [address] Neuro Reading Room Electronically signed by: DELISA BUSTILLO M.D. on 04:58 PMURINALYSIS W/ [id number] 16:25:00 Test Item Value Reference Range Comments COLOR (BEAKER) (test miva=359) Light Yellow CLARITY (BEAKER) (test ahqr=158) Clear SPECIFIC GRAVITY UA (BEAKER) (test elbb=235) 1.007 1.001-1.035 PH UA (BEAKER) (test rkdx=003) 5.5 5.0-8.0 PROTEIN UA (BEAKER) (test uwzt=754) 10 mg/dL Negative GLUCOSE UA (BEAKER) (test bqsc=549) Negative Negative KETONES UA (BEAKER) (test qyur=958) 20 mg/dL Negative BILIRUBIN UA (BEAKER) (test ecfg=954) Negative Negative BLOOD UA (BEAKER) (test xiuh=576) Trace Negative NITRITE UA (BEAKER) (test lkbz=370) Negative Negative LEUKOCYTE ESTERASE UA (BEAKER) (test tiyy=985) Negative Negative UROBILINOGEN UA (BEAKER) (test mccx=794) 0.2 mg/dL 0.2-1.0 RBC UA (BEAKER) (test ezim=910) < /HPF WBC UA (BEAKER) (test xreg=947) 1 /HPF SQUAMOUS EPITHELIAL (BEAKER) (test rgdj=632) < /HPF SOURCE(BEAKER) (test txok=8784) Urine, Voided BLOOD [id number] 10:00:00 Test Item Value Reference Range Comments CULTURE (BEAKER) (test hfjn=0876) No growth in 5 days STOOL CULTURE + SHIGA [id number] 09:59:00 Test Item Value Reference Range Comments CULTURE (BEAKER) (test No Salmonella, Shigella or makb=2736) Campylobacter isolated STOOL PATH [id number] 09:01:00 Test Item Value Reference Range Comments PATHOGEN EXAM CHARGED (BEAKER) (test madr=8875) Done BASIC METABOLIC [id number] 06:59:00 Test Item Value Reference Range Comments SODIUM (BEAKER) (test 137 meq/L 136-145 ohcn=540) POTASSIUM (BEAKER) (test 3.6 meq/L 3.5-5.1 dhzh=719) CHLORIDE (BEAKER) (test 110 meq/L 98-107 hloi=599) CO2 (BEAKER) (test 16 meq/L 22-29 tbdf=800) BLOOD UREA NITROGEN 18 mg/dL 7-21 (BEAKER) (test sjjs=561) CREATININE (BEAKER) (test 2.02 mg/dL 0.57-1.25 lzvp=933) GLUCOSE RANDOM (BEAKER) 91 mg/dL 70-105 (test eabh=209) CALCIUM (BEAKER) (test 9.3 mg/dL 8.4-10.2 kfgu=606) EGFR (BEAKER) (test 35 mL/min/1.73 sq m ESTIMATED GFR IS NOT qaec=7107) ACCURATE CREATININE CLEARANCE IN PREDICTING GLOMERULAR FILTRATION RATE. ESTIMATED GFR IS NOT APPLICABLE FOR DIALYSIS PATIENTS. SHIGA TOXIN [id number] 15:48:00 Test Item Value Reference Range Comments SHIGA TOXIN 1 (BEAKER) (test wteb=4852) Not detected Not detected SHIGA TOXIN 2 (BEAKER) (test nlml=4733) Not detected Not detected CLOSTRIDIUM DIFFICILE TOXIN [id number] 15:13:00 Test Item Value Reference Range Comments CLOSTRIDIUM DIFFICILE TOXIN, PCR (BEAKER) (test Not Detected Not Detected oiye=0706) This qualitative real-time polymerase chain reaction assay [...] a positive result is not recommended.BLOOD GAS, [id number] 11:03:00 Test Item Value Reference Range Comments PH ARTERIAL (BEAKER) (test wufb=348) 7.38 7.35-7.45 PCO2 ARTERIAL (BEAKER) (test gzyv=925) 28 mmHg 35-45 PO2 ARTERIAL (BEAKER) (test lboo=370) 95 mmHg 80-90 O2 SATURATION ARTERIAL (BEAKER) (test xvas=055) 97.4 % 96.0-97.0 HCO3 ARTERIAL (BEAKER) (test bzjf=183) 16 mmol/L 21-29 BASE EXCESS ARTERIAL (BEAKER) (test xvkq=512) -7.2 mmol/L -2.0-3.0 PATIENT TEMPERATURE (BEAKER) (test bqzo=9412) 36.5 C FIO2 (BEAKER) (test yrza=9695) 21.0 % BASIC METABOLIC [id number] 05:14:00 Test Item Value Reference Range Comments SODIUM (BEAKER) (test 136 meq/L 136-145 wxxu=805) POTASSIUM (BEAKER) (test 3.9 meq/L 3.5-5.1 ypjt=507) CHLORIDE (BEAKER) (test 111 meq/L 98-107 csku=113) CO2 (BEAKER) (test 13 meq/L 22-29 nszk=765) BLOOD UREA NITROGEN 20 mg/dL 7-21 (BEAKER) (test kxwk=014) CREATININE (BEAKER) (test 2.70 mg/dL 0.57-1.25 ktda=049) GLUCOSE RANDOM (BEAKER) 77 mg/dL 70-105 (test xdir=065) CALCIUM (BEAKER) (test 9.3 mg/dL 8.4-10.2 vvgl=899) EGFR (BEAKER) (test 25 mL/min/1.73 sq m ESTIMATED GFR IS NOT ssnq=7410) ACCURATE CREATININE CLEARANCE IN PREDICTING GLOMERULAR FILTRATION RATE. ESTIMATED GFR IS NOT APPLICABLE FOR DIALYSIS PATIENTS. PTH, [id number] 05:03:00 Test Item Value Reference Range Comments PARATHYROID HORMONE INTACT (BEAKER) (test 41.8 pg/mL 8.5-72.5 huex=073) BASIC METABOLIC [id number] 07:10:00 Test Item Value Reference Range Comments SODIUM (BEAKER) (test 136 meq/L 136-145 aeds=589) POTASSIUM (BEAKER) (test 3.4 meq/L 3.5-5.1 vzdk=956) CHLORIDE (BEAKER) (test 109 meq/L 98-107 jxhw=359) CO2 (BEAKER) (test 15 meq/L 22-29 tiol=756) BLOOD UREA NITROGEN 23 mg/dL 7-21 (BEAKER) (test ryza=790) CREATININE (BEAKER) (test 3.91 mg/dL 0.57-1.25 fvgd=231) GLUCOSE RANDOM (BEAKER) 79 mg/dL 70-105 (test zmxe=551) CALCIUM (BEAKER) (test 8.9 mg/dL 8.4-10.2 jznl=169) EGFR (BEAKER) (test 16 mL/min/1.73 sq m ESTIMATED GFR IS NOT gjdp=3265) ACCURATE CREATININE CLEARANCE IN PREDICTING GLOMERULAR FILTRATION RATE. ESTIMATED GFR IS NOT APPLICABLE FOR DIALYSIS PATIENTS. SODIUM, RANDOM [id number] 06:58:00 Test Item Value Reference Range Comments SODIUM URINE (BEAKER) (test nwvh=042) 65 meq/L Reference Range: No NormalsPROTHROMBIN TIME/[id number] 06:47:00 Test Item Value Reference Range Comments PROTIME (BEAKER) (test fkqq=885) 14.5 seconds 11.7-14.7 INR (BEAKER) (test ztww=605) 1.1 <=5.9 RECOMMENDED COUMADIN/WARFARIN INR THERAPY RANGESSTANDARD DOSE: 2.0 - 3.0 Includes: PROPHYLAXIS forvenous thrombosis, systemic embolization; TREATMENT for venous thrombosis and/or pulmonary embolus.HIGH RISK: Target INR is 2.5-3.5 for patients with mechanical heart valves.RAPID DRUG SCREEN, [id number] 15: 43:00 Test Item Value Reference Range Comments BARBITURATE URINE (BEAKER) (test brry=891) Negative Negative BENZODIAZEPINE SCREEN URINE (BEAKER) (test Positive Negative lmha=569) COCAINE (METAB.) SCREEN (BEAKER) (test fytl=0877) Negative Negative METHADONE SCREEN (BEAKER) (test avvw=7756) Negative Negative OPIATE SCREEN URINE (BEAKER) (test wovz=651) Negative Negative CANNABINOID SCREEN URINE (BEAKER) (test neqo=850) Negative Negative AMPH/METHAMPH SCREEN (BEAKER) (test arjf=6246) Negative Negative PHENCYCLIDINE SCREEN URINE (BEAKER) (test gzzk=845) Negative Negative OXYCODONE SCREEN URINE (BEAKER) (test lmvq=1942) Negative Negative DRUG CUTOFF CONC.Cocaine 300 ng/mL Cannabinoid 50 ng/mL Benzodiazepine 200 ng/mLBarbiturate 200 ng/ mLPhencyclidine 25 ng/mLOpiate 300 ng/mLMethadone 300 ng/mLAmphetamine/ 1000 ng/mL MethamphetamineOxycodone 300 ng/mLThis assay provides an unconfirmed qualitative test result for the clinical management of patients in emergency situations. Chain of custody not maintained. Some ypbr-urc-zzkceue medications, as well as adulterants, may cause inaccurate results. Clinical correlation should be applied. A more comprehensive drug screen or confirmation of a detected drug may be performed upon request.URINE [id number] 14:33:00 Test Item Value Reference Range Comments CULTURE (BEAKER) (test ulxe=5937) No growth BASIC METABOLIC [id number] 08:09:00 Test Item Value Reference Range Comments SODIUM (BEAKER) (test 136 meq/L 136-145 fiwm=631) POTASSIUM (BEAKER) (test 3.5 meq/L 3.5-5.1 Specimen slightly zoxg=302) hemolyzed CHLORIDE (BEAKER) (test 107 meq/L 98-107 niix=623) CO2 (BEAKER) (test 15 meq/L 22-29 dmvx=355) BLOOD UREA NITROGEN 25 mg/dL 7-21 (BEAKER) (test qxex=306) CREATININE (BEAKER) (test 4.75 mg/dL 0.57-1.25 Specimen slightly gkup=432) hemolyzed GLUCOSE RANDOM (BEAKER) 74 mg/dL 70-105 (test bnlo=867) CALCIUM (BEAKER) (test 8.5 mg/dL 8.4-10.2 fxzt=731) EGFR (BEAKER) (test 13 mL/min/1.73 sq m ESTIMATED GFR IS NOT jkce=1849) ACCURATE CREATININE CLEARANCE IN PREDICTING GLOMERULAR FILTRATION RATE. ESTIMATED GFR IS NOT APPLICABLE FOR DIALYSIS PATIENTS. CBC W/PLT COUNT & AUTO [id number] 06:38:00 Test Item Value Reference Range Comments WHITE BLOOD CELL COUNT (BEAKER) (test lozk=345) 9.9 K/ L 3.5-10.5 RED BLOOD CELL COUNT (BEAKER) (test ujga=098) 4.01 M/ L 4.63-6.08 HEMOGLOBIN (BEAKER) (test fbsc=194) 13.2 GM/DL 13.7-17.5 HEMATOCRIT (BEAKER) (test beju=882) 38.1 % 40.1-51.0 MEAN CORPUSCULAR VOLUME (BEAKER) (test uqht=662) 95.0 fL 79.0-92.2 MEAN CORPUSCULAR HEMOGLOBIN (BEAKER) (test 32.9 pg 25.7-32.2 mrsa=436) MEAN CORPUSCULAR HEMOGLOBIN CONC (BEAKER) (test 34.6 GM/DL 32.3-36.5 dclu=431) RED CELL DISTRIBUTION WIDTH (BEAKER) (test 13.1 % 11.6-14.4 vosl=016) PLATELET COUNT (BEAKER) (test eiyp=282) 121 K/CU MM 150-450 MEAN PLATELET VOLUME (BEAKER) (test uymp=743) 10.1 fL 9.4-12.4 NUCLEATED RED BLOOD CELLS (BEAKER) (test 0 /100 WBC 0-0 vpdj=596) NEUTROPHILS RELATIVE PERCENT (BEAKER) (test 73 % pfyk=389) LYMPHOCYTES RELATIVE PERCENT (BEAKER) (test 17 % pjot=863) MONOCYTES RELATIVE PERCENT (BEAKER) (test 8 % ltvm=175) EOSINOPHILS RELATIVE PERCENT (BEAKER) (test 2 % eoqt=715) BASOPHILS RELATIVE PERCENT (BEAKER) (test 0 % orpi=619) NEUTROPHILS ABSOLUTE COUNT (BEAKER) (test 7.25 K/ L 1.78-5.38 ooeb=088) LYMPHOCYTES ABSOLUTE COUNT (BEAKER) (test 1.66 K/ L 1.32-3.57 iijk=220) MONOCYTES ABSOLUTE COUNT (BEAKER) (test 0.76 K/ L 0.30-0.82 zhzh=344) EOSINOPHILS ABSOLUTE COUNT (BEAKER) (test 0.19 K/ L 0.04-0.54 dcly=420) BASOPHILS ABSOLUTE COUNT (BEAKER) (test 0.03 K/ L 0.01-0.08 owdx=366) IMMATURE GRANULOCYTES-RELATIVE PERCENT (BEAKER) 0 % 0-1 (test hztr=9119) U/S, RENAL, [id number] 22:34:00Reason for exam:->acute kidney injuryFINAL REPORT Renal [...] Jack Verified Date/Time: 2016 22:34:25 Reading Location:[facility] C013W Consult Reading Room MR, BRAIN, WITHOUT [id number] 19:18:00Reason for exam:->Stroke evaluationFINAL REPORT MRI Brain [...] Nelson Verified Date/Time: 04/17/2017 19:18:34 Reading Location: [facility] Radiology Reading Room EEG MONITORING WITH VIDEO RECORDING EACH 24 [id number] 18:01:00DATE OF TEST: 04/17/2017 DATE OF REPORT 04/17/2017 ACC: [id number] EE Start time: 16:42 Stop time: 18: 44 ICD-10: R56.9 CPT Code: 32398 HISTORY: 51 y/o woman with history of [...] Shahnaz Davis MD Neurophysiology Attending URINALYSIS W/ [id number] 11:57:00 Test Item Value Reference Range Comments COLOR (BEAKER) (test bshm=716) Light Yellow CLARITY (BEAKER) (test rbjm=476) Clear SPECIFIC GRAVITY UA (BEAKER) (test njxn=114) 1.006 1.001-1.035 PH UA (BEAKER) (test pyyj=862) 6.0 5.0-8.0 PROTEIN UA (BEAKER) (test tszb=567) 30 mg/dL Negative GLUCOSE UA (BEAKER) (test qqjq=056) Negative Negative KETONES UA (BEAKER) (test phdf=224) Negative Negative BILIRUBIN UA (BEAKER) (test wqdv=204) Negative Negative BLOOD UA (BEAKER) (test nnhq=184) Small Negative NITRITE UA (BEAKER) (test ocpd=138) Negative Negative LEUKOCYTE ESTERASE UA (BEAKER) (test hvkp=037) Large Negative UROBILINOGEN UA (BEAKER) (test juad=098) 0.2 mg/dL 0.2-1.0 RBC UA (BEAKER) (test nzlf=562) 7 /HPF WBC UA (BEAKER) (test vclc=140) 21 /HPF BACTERIA (BEAKER) (test mimn=226) Occasional SQUAMOUS EPITHELIAL (BEAKER) (test fhmv=279) < /HPF URIC ACID CRYSTALS (BEAKER) (test nmuf=0637) Rare SOURCE(BEAKER) (test wblg=4694) Urine, Cooper EOSINOPHIL SMEAR, [id number] 11:56:00 Test Item Value Reference Range Comments EOSINOPHIL SMEAR, URINE (BEAKER) (test No EOS seen No EOS seen hzur=5156) CREATININE, RANDOM [id number] 11:24:00 Test Item Value Reference Range Comments CREATININE URINE (BEAKER) (test pwvw=293) 69.7 mg/dL Reference Range: No NormalsSODIUM, RANDOM [id number] 11:24:00 Test Item Value Reference Range Comments SODIUM URINE (BEAKER) (test agma=343) 58 meq/L Reference Range: No NormalsUREA NITROGEN, RANDOM [id number] 11:24:00 Test Item Value Reference Range Comments UREA NITROGEN URINE (BEAKER) (test dqjs=765) 172 mg/dL Reference Range: No NormalsCREATINE KINASE (CK)2017-04-17 11:06:00 Test Item Value Reference Range Comments CREATINE KINASE TOTAL (BEAKER) (test smbi=182) 136 U/L 29-200 BASIC METABOLIC [id number] 04:53:00 Test Item Value Reference Range Comments SODIUM (BEAKER) (test 137 meq/L 136-145 lyav=146) POTASSIUM (BEAKER) (test 3.4 meq/L 3.5-5.1 mvko=058) CHLORIDE (BEAKER) (test 105 meq/L 98-107 ynln=836) CO2 (BEAKER) (test 21 meq/L 22-29 aoqu=508) BLOOD UREA NITROGEN 19 mg/dL 7-21 (BEAKER) (test ttrc=001) CREATININE (BEAKER) (test 3.75 mg/dL 0.57-1.25 mkgm=133) GLUCOSE RANDOM (BEAKER) 100 mg/dL 70-105 (test seua=739) CALCIUM (BEAKER) (test 8.6 mg/dL 8.4-10.2 xyac=839) EGFR (BEAKER) (test 17 mL/min/1.73 sq m ESTIMATED GFR IS NOT xjam=6118) ACCURATE CREATININE CLEARANCE IN PREDICTING GLOMERULAR FILTRATION RATE. ESTIMATED GFR IS NOT APPLICABLE FOR DIALYSIS PATIENTS. CBC W/PLT COUNT & AUTO [id number] 04:19:00 Test Item Value Reference Range Comments WHITE BLOOD CELL COUNT (BEAKER) (test mxmd=862) 12.0 K/ L 3.5-10.5 RED BLOOD CELL COUNT (BEAKER) (test kddn=068) 4.19 M/ L 4.63-6.08 HEMOGLOBIN (BEAKER) (test evnu=246) 13.8 GM/DL 13.7-17.5 HEMATOCRIT (BEAKER) (test muhw=329) 40.4 % 40.1-51.0 MEAN CORPUSCULAR VOLUME (BEAKER) (test xleh=359) 96.4 fL 79.0-92.2 MEAN CORPUSCULAR HEMOGLOBIN (BEAKER) (test 32.9 pg 25.7-32.2 jcrz=985) MEAN CORPUSCULAR HEMOGLOBIN CONC (BEAKER) (test 34.2 GM/DL 32.3-36.5 lrmv=956) RED CELL DISTRIBUTION WIDTH (BEAKER) (test 13.4 % 11.6-14.4 rxpj=745) PLATELET COUNT (BEAKER) (test kfzt=705) 118 K/CU MM 150-450 MEAN PLATELET VOLUME (BEAKER) (test yrat=674) 9.5 fL 9.4-12.4 NUCLEATED RED BLOOD CELLS (BEAKER) (test 0 /100 WBC 0-0 ushb=661) NEUTROPHILS RELATIVE PERCENT (BEAKER) (test 77 % cfza=795) LYMPHOCYTES RELATIVE PERCENT (BEAKER) (test 15 % ngow=069) MONOCYTES RELATIVE PERCENT (BEAKER) (test 7 % avuv=159) EOSINOPHILS RELATIVE PERCENT (BEAKER) (test 1 % epjs=346) BASOPHILS RELATIVE PERCENT (BEAKER) (test 0 % eooh=492) NEUTROPHILS ABSOLUTE COUNT (BEAKER) (test 9.20 K/ L 1.78-5.38 hcpe=027) LYMPHOCYTES ABSOLUTE COUNT (BEAKER) (test 1.78 K/ L 1.32-3.57 ofuo=857) MONOCYTES ABSOLUTE COUNT (BEAKER) (test 0.82 K/ L 0.30-0.82 pvjb=320) EOSINOPHILS ABSOLUTE COUNT (BEAKER) (test 0.12 K/ L 0.04-0.54 efej=104) BASOPHILS ABSOLUTE COUNT (BEAKER) (test 0.04 K/ L 0.01-0.08 rvhx=179) IMMATURE GRANULOCYTES-RELATIVE PERCENT (BEAKER) 0 % 0-1 (test bjak=2476) EEG MONITORING WITH VIDEO RECORDING EACH 24 [id number] 17:57:00DATE OF TEST : 04/16/2017DATE OF REPORT 04/16/2017 ACC: [id number]: Start time: 08: 42 Stop time: 16:42ICD-10: R56.9CPT Code: [id number]: 51 y/o woman with history of epilepsy [...] report.Phoebe Hassan MDEpilepsy Attending EEG AWAKE/ASLEEP AND [id number] 13:27:00Reason for exam:->status epilepticusDATE OF TEST: DATE OF REPORT 04/16/2017 ACC: [id number] EEStart time: 08:21 Stop time: 08:42ICD-10: R56.9CPT Code: [id number]: 51 y/o woman with history of epilepsy [...] this report.Phoebe Hassan MDEpilepsy Attending HEPATIC FUNCTION [id number] 12:59:00 Test Item Value Reference Range Comments TOTAL PROTEIN (BEAKER) (test 8.0 gm/dL 6.0-8.3 Specimen moderately hemolyzed mcih=560) ALBUMIN (BEAKER) (test 3.8 g/dL 3.5-5.0 Specimen moderately hemolyzed wtqx=7127) BILIRUBIN TOTAL (BEAKER) (test 0.3 mg/dL 0.2-1.2 Specimen moderately hemolyzed dcuq=607) BILIRUBIN DIRECT (BEAKER) 0.1 mg/dL 0.1-0.5 Specimen moderately hemolyzed (test tjcm=094) ALKALINE PHOSPHATASE (BEAKER) 79 U/L 40-150 (test lrwr=923) AST (SGOT) (BEAKER) (test 34 U/L 5-34 Specimen moderately hemolyzed uhve=724) ALT (SGPT) (BEAKER) (test 30 U/L 6-55 Specimen moderately ejsc=136) hemolyzed RAD, CHEST, 1 VIEW, NON [id number] 09:16:00Reason for exam:-> intubatedShould this be performed [...] Doe Verified Date/Time: 04/16/2017 09:16:32 Reading Location: [facility] Radiology Reading Room VITAMIN [id number] 07:31:00 Test Item Value Reference Range Comments VITAMIN B12 (BEAKER) (test hjed=347) 450 pg/mL 213-816 FOLATE, [id number] 07:31:00 Test Item Value Reference Range Comments FOLATE (BEAKER) (test noxw=908) 8.0 ng/mL >=7.0 URINALYSIS W/ [id number] 07:09:00 Test Item Value Reference Range Comments COLOR (BEAKER) (test pprb=769) Light Yellow CLARITY (BEAKER) (test iatp=956) Hazy SPECIFIC GRAVITY UA (BEAKER) (test attq=552) 1.008 1.001-1.035 PH UA (BEAKER) (test yetk=530) 6.0 5.0-8.0 PROTEIN UA (BEAKER) (test iohy=721) 20 mg/dL Negative GLUCOSE UA (BEAKER) (test dbsq=782) 200 mg/dL Negative KETONES UA (BEAKER) (test osnm=179) Negative Negative BILIRUBIN UA (BEAKER) (test qhai=219) Negative Negative BLOOD UA (BEAKER) (test tmie=772) Negative Negative NITRITE UA (BEAKER) (test ehsj=206) Negative Negative LEUKOCYTE ESTERASE UA (BEAKER) (test dcxh=627) Negative Negative UROBILINOGEN UA (BEAKER) (test obnf=985) 0.2 mg/dL 0.2-1.0 RBC UA (BEAKER) (test mtpl=520) < /HPF WBC UA (BEAKER) (test kmte=588) 1 /HPF BACTERIA (BEAKER) (test fugo=351) Rare SQUAMOUS EPITHELIAL (BEAKER) (test fupn=769) < /HPF HYALINE CASTS (BEAKER) (test uqlt=870) 8 /LPF SOURCE(BEAKER) (test ejii=5168) [id number] 05:59:00 Test Item Value Reference Range Comments MAGNESIUM (BEAKER) (test 3.0 mg/dL 1.6-2.6 Specimen moderately hemolyzed ohto=479) [id number] 05:59:00 Test Item Value Reference Range Comments PHOSPHORUS (BEAKER) (test 3.0 mg/dL 2.3-4.7 Specimen moderately hemolyzed sbwu=971) BASIC METABOLIC [id number] 05:59:00 Test Item Value Reference Range Comments SODIUM (BEAKER) (test 137 meq/L 136-145 xyvv=458) POTASSIUM (BEAKER) (test 3.8 meq/L 3.5-5.1 Specimen moderately dwfi=827) hemolyzed CHLORIDE (BEAKER) (test 99 meq/L 98-107 efev=625) CO2 (BEAKER) (test 23 meq/L 22-29 xawk=989) BLOOD UREA NITROGEN 14 mg/dL 7-21 (BEAKER) (test ymgm=490) CREATININE (BEAKER) (test 1.48 mg/dL 0.57-1.25 Specimen moderately ifyp=307) hemolyzed GLUCOSE RANDOM (BEAKER) 386 mg/dL 70-105 (test qogi=826) CALCIUM (BEAKER) (test 8.0 mg/dL 8.4-10.2 njfi=090) EGFR (BEAKER) (test 50 mL/min/1.73 sq m ESTIMATED GFR IS NOT kxfq=9764) ACCURATE CREATININE CLEARANCE IN PREDICTING GLOMERULAR FILTRATION RATE. ESTIMATED GFR IS NOT APPLICABLE FOR DIALYSIS PATIENTS. PROTHROMBIN [id number] 05:33:00 Test Item Value Reference Range Comments PROTIME (BEAKER) (test cnko=004) 15.7 seconds 11.7-14.7 INR (BEAKER) (test njnn=455) 1.3 <=5.9 RECOMMENDED COUMADIN/WARFARIN INR THERAPY RANGESSTANDARD DOSE: 2.0 - 3.0 Includes: PROPHYLAXIS forvenous thrombosis, systemic embolization; TREATMENT for venous thrombosis and/or pulmonary embolus.HIGH RISK: Target INR is 2.5-3.5 for patients with mechanical heart valves.BLOOD GAS, [id number] 05:31:00 Test Item Value Reference Range Comments PH ARTERIAL (BEAKER) (test mqdx=679) 7.34 7.35-7.45 PCO2 ARTERIAL (BEAKER) (test sslz=705) 43 mmHg 35-45 PO2 ARTERIAL (BEAKER) (test zjpw=148) 123 mmHg 80-90 O2 SATURATION ARTERIAL (BEAKER) (test oqxa=003) 98.2 % 96.0-97.0 HCO3 ARTERIAL (BEAKER) (test wvrp=372) 22 mmol/L 21-29 BASE EXCESS ARTERIAL (BEAKER) (test wxpe=062) -3.2 mmol/L -2.0-3.0 PATIENT TEMPERATURE (BEAKER) (test kzop=9665) 37.2 C FIO2 (BEAKER) (test rudm=3678) 60.0 % CBC W/PLT COUNT & AUTO [id number] 05:08:00 Test Item Value Reference Range Comments WHITE BLOOD CELL COUNT (BEAKER) (test kzjj=998) 16.2 K/ L 3.5-10.5 RED BLOOD CELL COUNT (BEAKER) (test bwrh=608) 4.53 M/ L 4.63-6.08 HEMOGLOBIN (BEAKER) (test utzm=753) 14.9 GM/DL 13.7-17.5 HEMATOCRIT (BEAKER) (test hhxr=981) 43.7 % 40.1-51.0 MEAN CORPUSCULAR VOLUME (BEAKER) (test uqpe=775) 96.5 fL 79.0-92.2 MEAN CORPUSCULAR HEMOGLOBIN (BEAKER) (test 32.9 pg 25.7-32.2 xeed=249) MEAN CORPUSCULAR HEMOGLOBIN CONC (BEAKER) (test 34.1 GM/DL 32.3-36.5 zxxa=429) RED CELL DISTRIBUTION WIDTH (BEAKER) (test 13.2 % 11.6-14.4 hxxy=251) PLATELET COUNT (BEAKER) (test txbn=338) 127 K/CU MM 150-450 MEAN PLATELET VOLUME (BEAKER) (test atlp=417) 10.0 fL 9.4-12.4 NUCLEATED RED BLOOD CELLS (BEAKER) (test 0 /100 WBC 0-0 uwto=025) NEUTROPHILS RELATIVE PERCENT (BEAKER) (test 84 % sone=915) LYMPHOCYTES RELATIVE PERCENT (BEAKER) (test 7 % cfsu=661) MONOCYTES RELATIVE PERCENT (BEAKER) (test 9 % hmjw=426) EOSINOPHILS RELATIVE PERCENT (BEAKER) (test 0 % hfjk=385) BASOPHILS RELATIVE PERCENT (BEAKER) (test 0 % owov=637) NEUTROPHILS ABSOLUTE COUNT (BEAKER) (test 13.58 K/ L 1.78-5.38 tzzr=669) LYMPHOCYTES ABSOLUTE COUNT (BEAKER) (test 1.06 K/ L 1.32-3.57 ythc=029) MONOCYTES ABSOLUTE COUNT (BEAKER) (test 1.38 K/ L 0.30-0.82 dose=401) EOSINOPHILS ABSOLUTE COUNT (BEAKER) (test 0.01 K/ L 0.04-0.54 igia=314) BASOPHILS ABSOLUTE COUNT (BEAKER) (test 0.02 K/ L 0.01-0.08 aqid=821) IMMATURE GRANULOCYTES-RELATIVE PERCENT (BEAKER) 1 % 0-1 (test zixa=1864)
[2019-02-06] MEDS ORDERED: MORPHINE 4 MG/ML SYR ONE (10:30)
[2019-02-06] MEDS ORDERED: ONDANSETRON 4 MG/2 ML VIAL ONE (10:30)
[2019-02-06] MEDS ORDERED: PIPER/TAZO/NS 3.375gm 3.375 GM/100 ML BAG ONE (10:31)
[2019-02-06] MEDS ORDERED: NA CHLORIDE 0.9% 1,000 ML ONE ×2 (10:31)
[2019-02-06 10:39] LABS: Absolute Lymphocytes (CBC) 1.3 K/uL (0.7-4.9); Basophils % 0.5 % (0-1.3); Hematocrit 38.1 % (39.6-49.0); Lymphocytes % 12.9 % (15.3-44.8); RBC Red Blood Cell Count 3.86 M/uL (4.33-5.43)
[2019-02-06 10:48] LABS: Protime INR 1.09
[2019-02-06 10:54] LABS: ALT/SGPT 43 U/L (12-78); AST/SGOT 35 U/L (15-37); Albumin 2.8 g/dL (3.4-5.0); Alkaline Phosphatase 71 U/L (45-117); BUN Blood Urea Nitrogen 12 mg/dL (7-18); Bicarbonate 26 mmol/L (21-32); Bilirubin Direct 0.2 mg/dL (0-0.2); Bilirubin Total 0.4 mg/dL (0.2-1.0); CKMB Creatine Kinase MB < 1.0 ng/mL (0.3-3.6); Creatine Phosphokinase 436 U/L (39-308); Glucose Level 92 mg/dL (74-106); Lipase 1225 U/L (73-393); Potassium 3.6 mmol/L (3.5-5.1); Protein, Total 7.8 g/dL (6.4-8.2); Sodium Level 136 mmol/L (136-145); Troponin (Emerg Dept Use Only) < 0.02 ng/mL (0.0-0.045)
[2019-02-06 10:59] LABS: Urine Blood NEGATIVE (NEG); Urine Glucose NEGATIVE (NEG); Urine Protein 2+ (NEG)
[2019-02-06 11:02] LABS: Urine Bacteria NONE SEEN /HPF (NONE SEEN); Urine RBC <5 /HPF (NONE SEEN)
[2019-02-06 11:03] LABS: Urine Culture Reflex Order NOT NEEDED; Urine Mucus LIGHT /HPF (NONE SEEN)
--- NOTE | 2019-02-06 11:23 | RAD REPORT ---
EXAM DESCRIPTION: RAD - Foot Left 3 View - 02/06/2019 11:07 am CLINICAL HISTORY: DEFORMITY COMPARISON: Foot Left 2 View dated 02/17/2018; Foot Left 3 View dated 11/10/2017 FINDINGS: Soft tissue wound is seen along the medial aspect of the midfoot with evidence of prior fi rst metatarsal amputation. Prior amputation of the second through fourth toes. Third toe demonstrate partial amputation with the proximal phalanx tearing exposed through the soft tissue of the forefoot. Prominent calcaneal spurs noted. No fracture identified.
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
--- NOTE | 2019-02-06 11:25 | EDPHYS ---
Physician Documentation [facility] Name: Karlos Leblanc Age: 53 yrs Sex: Male : 1965 Arrival Date: 02/06/2019 Time: 07:56 Bed 18 Private MD: Krish Burroughs ED Physician Fili Perez HPI: 02/06 10:25 This 53 yrs old Male presents to ER via Ambulatory with complaints of Toe ma2 Injury, Foot Pain. 10:25 The patient presents with a crush injury, an injury. The complaints affect the left ma2 foot. Onset: The symptoms/episode began/occurred suddenly, 2 day(s) ago. Associated signs and symptoms: Pertinent negatives: fever, swelling, vomiting. Severity of symptoms: At their worst the symptoms were severe, in the emergency department the symptoms are unchanged. The patient has experienced similar episodes in the past. 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 2 days ago he tripped and sustained left foot trauma and lost his left 2nd toe. . 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 - Social history:: Smoking status: Patient uses tobacco products, smokes one pack cigarettes per day. Patient/guardian denies using alcohol, street drugs, The patient lives with family. - Ebola Screening: : Patient denies exposure to infectious person Patient denies travel to an Ebola-affected area in the 21 days before illness onset. - Family history:: not pertinent. ROS: 10:25 MS/extremity: Positive for injury or acute deformity, Negative for erythema. ma2 10:25 Constitutional: Negative for fever, chills, and weight loss, Eyes: Negative for injury, pain, redness, and discharge. 10:25 All other systems are negative. Exam: 10:25 Constitutional: This is a well developed, well nourished patient who is awake, alert, ma2 and in no acute distress. Chest/axilla: Normal chest wall appearance and motion. Nontender with no deformity. No lesions are appreciated. Cardiovascular: Regular rate and rhythm with a normal S1 and S2. No gallops, murmurs, or rubs. Normal PMI, no JVD. No pulse deficits. Respiratory: Lungs have equal breath sounds bilaterally, clear to auscultation and percussion. No rales, rhonchi or wheezes noted. No increased work of breathing, no retractions or nasal flaring. Abdomen/GI: Soft, non-tender, with normal bowel sounds. No distension or tympany. No guarding or rebound. No evidence of tenderness throughout. 10:25 Musculoskeletal/extremity: Extremities: deformity, tenderness, left great toe wound, diabetic foot, wet puss and bone sticking out, , ROM: limited passive range of motion, Severe pain noted. Tingling of extremity. Compartment Syndrome exam of affected extremity: is normal. Vital Signs: 08:28 BP 108 / 60; Pulse 90; Resp 16; Temp 98.8(TE); Pulse Ox 98% on R/A; Weight 67.59 kg; ss Height 6 ft. 1 in. (185.42 cm); Pain 7/10; 10:15 BP 122 / 64; Pulse 66; Resp 22; Temp 98.1(O); Pulse Ox 99% on R/A; ca1 11:14 BP 119 / 69; Pulse 75; Resp 19 S; Pulse Ox 100% on R/A; ca1 12:15 BP 127 / 68; Pulse 75; Resp 17 S; Pulse Ox 75% on R/A; ca1 13:24 BP 117 / 75; Pulse 72; Resp 17 S; Pulse Ox 97% on R/A; ca1 14:49 BP 109 / 53; Pulse 62; Resp 20; Temp 98(O); Pulse Ox 100% on R/A; ca1 08:28 Body Mass Index 19.66 (67.59 kg, 185.42 cm) ss MDM: 09:20 Patient medically screened. ma2 10:25 Differential diagnosis: fracture, cellulitis, diabetic foot with abscess here with ma2 deformity and bone sticking out. Data reviewed: vital signs, nurses notes, diagnostic data from outside facility, old medical records, lab test result(s), radiologic studies. 11:21 Counseling: I had a detailed discussion with the patient and/or guardian regarding: the [facility] historical points, exam findings, and any diagnostic results supporting the discharge/admit diagnosis, the presence of at least one elevated blood pressure reading (>120/80) during this emergency department visit, the need for further work-up and treatment in the hospital. ED course: diabetic foot, needs amputation discussed with dr. Burroughs. 02/06 09:56 Order name: Basic Metabolic Panel; Complete Time: 11:14 [facility] 02/06 09:56 Order name: Blood Culture Adult (2) [facility] 02/06 09:56 Order name: CBC with Diff; Complete Time: 10:53 [facility] 02/06 09:56 Order name: Ckmb; Complete Time: 11:14 [facility] 02/06 09:56 Order name: CPK; Complete Time: 11:14 [facility] 02/06 09:56 Order name: Lactate; Complete Time: 10:53 [facility] 02/06 09:56 Order name: LFT's; Complete Time: 11:14 [facility] 02/06 09:56 Order name: Lipase; Complete Time: 11:14 [facility] 02/06 09:56 Order name: Procalcitonin [facility] 02/06 09:56 Order name: Protime (+inr); Complete Time: 11:14 [facility] 02/06 09:56 Order name: Ptt, Activated; Complete Time: 11:14 [facility] 02/06 09:56 Order name: Troponin (emerg Dept Use Only); Complete Time: 11:14 [facility] 02/06 09:56 Order name: Urine Microscopic Only; Complete Time: 11:14 [facility] 02/06 10:57 Order name: Urine Dipstick--Ancillary (enter results); Complete Time: 11:14 bd 02/06 09:56 Order name: Accucheck; Complete Time: 10:36 [facility] 02/06 09:56 Order name: Cardiac monitoring; Complete Time: 10:26 [facility] 02/06 09:56 Order name: EKG - Nurse/Tech; Complete Time: 10:54 ok02/06 09:56 Order name: IV Saline Lock - Large Bore; Complete Time: 10:27 [facility] 02/06 09:56 Order name: Labs collected and sent; Complete Time: 10:27 [facility] 02/06 09:56 Order name: O2 Per Protocol; Complete Time: 10:27 [facility] 02/06 09:56 Order name: O2 Sat Monitoring; Complete Time: 10:27 [facility] 02/06 09:56 Order name: Urine Dipstick-Ancillary (obtain specimen); Complete Time: 10:43 [facility] 02/06 09:56 Order name: Foot Left 3 View XRAY [facility] 02/06 11:18 Order name: NPO; Complete Time: 11:21 [facility] 02/06 11:24 Order name: Lower Extremity W/ Cont EDMS 02/06 12:02 Order name: CONS Physician Consult EDCT Administered Medications: 10:30 Drug: NS 0.9% (30 ml/kg) 30 ml/kg Route: IV; Rate: bolus; Site: right forearm; ca1 12:04 Follow up: Response: No adverse reaction; IV Status: Completed infusion; IV Intake: ca1 2000ml 10:30 Drug: morphine 4 mg {Note: RASS - 0.} Route: IVP; Site: right forearm; ca1 12:04 Follow up: Response: No adverse reaction; Pain is decreased; RASS: Alert and Calm (0) ca1 10:33 Drug: Zofran 4 mg Route: IVP; Site: right forearm; ca1 12:05 Follow up: Response: No adverse reaction; Nausea is decreased ca1 10:40 Drug: Zosyn 3.375 grams Route: IVPB; Infused Over: 60 mins; Site: right forearm; ca1 12:05 Follow up: Response: No adverse reaction; IV Status: Completed infusion ca1 Point of Care Testing: Blood Glucose: 10:36 Blood Glucose: 101 mg/dL; ca1 Ranges: Critical Glucose Levels:Adult <50 mg/dl or >400 mg/dl <40 mg/dl or >180 mg/dl Disposition: 02/06/19 11:24 Hospitalization ordered by Sari Lindsay for Inpatient Admission. Preliminary diagnosis is Other infective (teno)synovitis, left ankle and foot. - Bed requested for Telemetry/MedSurg (Inpatient). - Status is Inpatient Admission. ca1 - Condition is Stable. - Problem is new. - Symptoms are unchanged. UTI on Admission? No Signatures: Dispatcher [employer] EDPeggy Conti RN RN dw Smirch, Shelby, RN RN Fili Perez MD MD [facility] Acob, [place], RN RN ca1 Corrections: (The following items were deleted from the chart) 14:35 11:24 Hospitalization Ordered by Sari Lindsay MD for Inpatient Admission. Preliminary dw diagnosis is Other infective (teno)synovitis, left ankle and foot. Bed requested for Telemetry/MedSurg (Inpatient). Status is Inpatient Admission. Condition is Stable. Problem is new. Symptoms are unchanged. UTI on Admission? No. ma2 15:34 14:35 02/06/2019 11:24 Hospitalization Ordered by Sari Lindsay MD for Inpatient ca1 Admission. Preliminary diagnosis is Other infective (teno)synovitis, left ankle and foot. Bed requested for Telemetry/MedSurg (Inpatient). Status is Inpatient Admission. Condition is Stable. Problem is new. Symptoms are unchanged. UTI on Admission? No. dw
--- NOTE | 2019-02-06 12:13 | RAD REPORT ---
EXAM DESCRIPTION: CT - Lower Extremity W/ Cont - 02/06/2019 11:39 am CLINICAL HISTORY: Leg pain and swelling COMPARISON: February 06, 2019 x-ray TECHNIQUE: Computed axial tomography of the left lower extremity with coronal and sagittal reconstru ction. 50 cc Isovue administered intravenously All CT scans are performed using dose optimization technique as appropriate and may include automated exposure control or mA/KV adjustment according to patient size. FINDINGS: A portion of the third proximal phalanx protrudes through the skin. Several air bubbles ar e present within the third proximal phalanx. Air bubbles are present within the adjacent soft tissue. Indications involve portions of the first, second, third and fourth digits. No acute fracture or dislocation seen. Soft tissue ulceration involves the medial forefoot. Diffuse edema is present in the soft tissues No bony destructive lesion noted Soft tissue abscess is not seen. IMPRESSION: A portion of the third proximal phalanx protrudes through the skin. Several air bubbles are present within the third proximal phalanx. Air bubbles are present within the adjacent soft tissu e. This likely indicates infection involving the bone and soft tissues
[2019-02-06] MEDS ORDERED: ONDANSETRON 4 MG/2 ML VIAL IV PRN (15:23)
[2019-02-06] MEDS ORDERED: NA CHLORIDE 0.9% 1,000 ML IV SCH (15:23)
[2019-02-06 15:56] VITALS: BMI 19.5
--- NOTE | 2019-02-06 16:13 | P.HP ---
Certification for Inpatient Patient admitted to: Inpatient With expected LOS: >2 Midnights Practitioner: I am a practitioner with admitting privileges, knowledge of patient current condition, hospital course, and medical plan of care. Services: Services provided to patient in accordance with Admission requirements found in Title 42 Section 412.3 of the Code of Federal Regulations Patient History Date of Service: 02/06/19 History of Present Illness: This is a 53-year-old male past medical history hypertension, diastolic CHF, COPD, CAD, multiple her amputations including all 5 toes on the right foot and basic, 2nd and 4th toe on the left foot If admitted for with injury to the left foot. Per patient, he had a recent amputation in the ankles and on the left foot in 2-3 weeks ago. He was doing well until the morning of admission when he tried to take his walker out of the truck and he accidentally ran a walker over his left foot. After that, it seemed that the stitches from the recent surgery came undone 5th and 3rd toe seemed to have fallen off. patient stated that there was a foul smell and he he could not bear the pain therefore he came to the ER. In the ER, blood pressure was 108/60, heart rate of 90, respirations of 16, afebrile at 98.8, satting 90% on room air and a BMI of 19.66. His labs were fairly unremarkable except for CK level elevated at 436. Foot x-ray shows soft tissue wound and a CT of the foot showed A portion of the third proximal phalanx protrudes through the skin. Several air bubbles are present within the third proximal phalanx. Air bubbles are present within the adjacent soft tissue. This likely indicates infection involving the bone and soft tissues. he was given IV antibiotics in the ER. General surgery was called. At the time of my exam, he was alert oriented x3, in mild to moderate distress due to pain but he was hemodynamically stable. Allergies No Known Allergies Allergy (Verified 11/12/17 20:22) Home medications list reviewed: Yes Home Medications: Amlodipine [Norvasc] 10 mg PO DAILY 02/06/19 Atorvastatin Calcium [Lipitor] 40 mg PO DAILY 02/06/19 Levetiracetam [Keppra] 1,000 mg PO DAILY 02/06/19 - Past Medical/Surgical History Has patient received pneumonia vaccine in the past: No Diabetic: No -: HTN -: CHF, diastolic dysfunction -: COPD -: CAD -: . -: Right metatarsal amputation -: History of osteomyelitis -: IV drug use -: Alcohol abuse -: Tobacco abuse -: Rt great toe & 2nd toe amputated-Dec 2015 Psychosocial/ Personal History: Unable to be obtained - Social History Alcohol use: No CD- Drugs: No Caffeine use: Yes Review of Systems 10-point ROS is otherwise unremarkable Physical Examination - Vital Signs Temperature: 98 F Blood Pressure: 109/53 Pulse: 62 Respirations: 20 - Physical Exam General: Alert, Oriented x3, Moderate distress HEENT: Atraumatic, PERRLA, Mucous membr. moist/pink, EOMI, Sclerae nonicteric Neck: Supple, 2+ carotid pulse no bruit, No LAD, Without JVD or thyroid abnormality Respiratory: Clear to auscultation bilaterally, Normal air movement Cardiovascular: Regular rate/rhythm, Normal S1 S2 Gastrointestinal: Normal bowel sounds, No tenderness Musculoskeletal: Tenderness, Other (Left foot, great toe/2nd toe: bone sticking out, foul-smelling drainage noted from the area) Integumentary: No rashes Neurological: Normal gait, Normal speech, Normal strength at 5/5 x4 extr, Normal tone, Normal affect Lymphatics: No axilla or inguinal lymphadenopathy - Studies Laboratory Data (last 24 hrs) 02/06/19 10:17: PT 12.8 H, INR 1.09, APTT 41.9 H 02/06/19 10:17: WBC 9.8, Hgb 13.1 L, Hct 38.1 L, Plt Count 202 02/06/19 10:17: Sodium 136, Potassium 3.6, BUN 12, Creatinine 1.11, Glucose 92, Total Bilirubin 0.4, AST 35, ALT 43, Alkaline Phosphatase 71, Lipase 1225 H Assessment and Plan - Problems (Diagnosis) (1) Open wound of left lower leg with complication Current Visit: No Status: Acute Plan: Patient with multiple lower extremity amputations likely secondary to peripheral vascular disease. Patient with a recent amputation of left toe with subsequent trauma to the area. - CT of the foot consistent with findings of osteomyelitis - General surgery consulted, patient did go to OR for partial left foot amputation tomorrow. Recommendations appreciated. - NPO post midnight - continue broad-spectrum IV antibiotics with Zosyn - pain control Qualifiers: Encounter type: subsequent encounter Qualified Code(s): S81.802D - Unspecified open wound, left lower leg, subsequent encounter (2) Non-healing surgical wound Current Visit: No Status: Chronic Qualifiers: Encounter type: sequela Qualified Code(s): T81.89XS - Other complications of procedures, not elsewhere classified, sequela (3) Osteomyelitis Current Visit: Yes Status: Acute (4) CAD (coronary artery disease) Onset Date: 03/15/17 Current Visit: No Status: Chronic Plan: Stable, will continue home medications. Qualifiers: Coronary Disease-Associated Artery/Lesion type: [place] artery [place] vs. transplanted heart: [place] heart Associated angina: without angina Qualified Code(s): I25.10 - Atherosclerotic heart disease of [place] coronary artery without angina pectoris (5) CHF (congestive heart failure) Onset Date: 03/15/17 Current Visit: No Status: Chronic Plan: Stable, will continue home medications Qualifiers: Qualified Code(s): I50.22 - Chronic systolic (congestive) heart failure (6) COPD (chronic obstructive pulmonary disease) Onset Date: 03/15/17 Current Visit: No Status: Chronic Plan: Stable. Will continue breathing treatments as needed. Qualifiers: COPD type: chronic bronchitis Chronic bronchitis type: unspecified Qualified Code(s): J42 - Unspecified chronic bronchitis (7) Hyperlipemia Current Visit: No Status: Chronic Plan: Stable, continue home statin. Qualifiers: Hyperlipidemia type: unspecified Qualified Code(s): E78.5 - Hyperlipidemia , unspecified (8) Hypertension Onset Date: 01/07/16 Current Visit: No Status: Chronic Plan: Stable, continue home amlodipine Qualifiers: Hypertension type: essential hypertension Qualified Code(s): I10 - Essential (primary) hypertension (9) Methamphetamine abuse Onset Date: 03/15/17 Current Visit: No Status: Chronic (10) PAD (peripheral artery disease) Current Visit: No Status: Chronic (11) Alcohol abuse Onset Date: 01/07/16 Current Visit: No Status: Chronic (12) Elevated lipase Current Visit: Yes Status: Acute Plan: Unsure of etiology. Patient not really complaining of any abdominal pain/ nausea or vomiting. She does have a history of heavy alcohol use. Currently denies any alcohol usage. -unable to do CT of the abdomen with contrast today as patient already had a CT with contrast of the foot today. -Abdominal ultrasound ordered, pending to evaluate a little bit more. -Will repeat lipase levels tomorrow, if continued to be elevated, will proceed with a CT abdomen with contrast to evaluate for pancreatitis. -Clinically, No evidence of pancreatitis at this time. Will continue to monitor - Plan DVT prophylaxis: None GI prophylaxis: none Diet: heart healthy, NPO after midnight for surgical intervention tomorrow Disposition: admit to floor with tele. Pending symptomatic improvement and surgical intervention with partial foot amputation tomorrow. - Advance Directives Does patient have a Living Will: Yes Does patient have a Durable POA for Healthcare: Yes Time Spent Managing Pts Care (In Minutes): 55
[2019-02-06] MEDS ORDERED: NA CHLORIDE 0.9% 250 ML ONE (17:59)
[2019-02-06] MEDS: PIPER/TAZO/NS 3.375gm 3.375 GM/100 ML BAG IVPB SCH (18:04)
--- NOTE | 2019-02-06 18:32 | RAD REPORT ---
EXAM DESCRIPTION: US - Abdomen Exam Complete - 02/06/2019 6:05 pm CLINICAL HISTORY: Abdominal pain COMPARISON: none FINDINGS: The liver has an increased echotexture. Multiple gallstones. The gallbladder wall is not thickened. The biliary tree is normal caliber. The pancreatic head is normal in size and echotexture. Remainder the pancreas is poorly seen secondar y to overlying bowel gas. The right kidney measures 10 centimeters with a normal echotexture. The left kidney measures 11 centimeters with a normal echotexture. The spleen measures 10 centimeters. The abdominal aorta and inferior vena cava appear unremarkable IMPRESSION: Increased hepatic echotexture consistent with fatty infiltration Cholelithiasis without evidence of cholecystitis
[2019-02-06] MEDS: MORPHINE 4 MG/ML SYR IV PRN (18:43)
--- NOTE | 2019-02-06 20:15 | CON ---
Date of Consultation: 02/06/2019 Reason For Consultation: Infected wound, left foot. History Of Present Illness: Patient is a 53-year-old gentleman with multiple medical problems, who I had seen in the past, last time being in May of this year. He was in his usual state of health until 2 weeks ago, he had some amputation done of his left foot in [facility] and then 2 days a go, he had a crush injury to his left foot with bone exposed and it became infected and he started gutiérrez ving pain, fever and he came to the emergency room. He had some vomiting as well, swelling of the le ft foot, and he has had gangrene in the past with partial right foot amputation and multiple toe ampu tations on the left foot. There is some drainage. There is foul odor to it. There is increasing pa in. Review of Systems: Otherwise unremarkable. Past Medical History: Attention deficit disorder, COPD, AL, skin cancer, peripheral vascular disease , CHF, CVA. Past Surgical History: Right hand surgery for skin cancer, left toe amputation, right partial foot a mputation. Allergies: NONE. Social History: He has smoked and drank in the past. Currently, he denies. Family History: Noncontributory. Physical Examination: Vital Signs: Reviewed. He is afebrile and his vital signs are stable. General: He is awake, alert, and oriented x3. Head and Neck: Cranial nerves 2 through 12 grossly w ithin normal limits. No neck masses. No JVD. Throat clear. Neck is supple. Chest: Clear. Heart: S1, S2. Abdomen: Soft, nondistended, nontender. Positive bowel sounds. Extremities: Diminished dorsalis pedis and posterior tibial pulses. On the left foot, there is expo sed phalangeal bone of the 3rd toe. There is redness, foul odor, necrosis of the wound, it is open. There are sutures placed from his recent surgery and pulses again are markedly diminished. Diagnostic Data: He had a lower extremity CAT scan done, which shows a portion of the 3rd proximal p halanx protrudes through the skin. Several air bubbles are present within the 3rd proximal phalanx, air bubbles are present within the adjacent soft tissue, indications in involved portion of the 1st, 2nd, 3rd, and 4th digits, no fracture or dislocation is seen, soft tissue ulcerations seen in the med ial forefoot and diffuse edema is present in the soft tissue. X-ray, foot x-ray also shows similar f indings. His laboratory data, his procalcitonin and lactic acid are normal; however, his lipase is 1 225. His white count is 9.8 with a left shift. INR is 1.09. He had an arterial Doppler done last y ear in October, which showed significant changes in the peak velocity in the left common femoral artery to the left superficial artery, following which the patient did have an operative procedure by Dr. Slim whaley and a stent placed in the left SFA. Assessment: A 53-year-old gentleman with left foot infection with osteomyelitis. Recommendation: Admit, n.p.o., IV fluid, IV antibiotics. Patient needs to go to the OR for an amput ation. Left below-knee amputation would probably be best for the patient. However, he refuses that and he does agree to a partial foot amputation, current salvage the heel and we will proceed with amelia t tomorrow. He will also need evaluation of his elevated lipase with a CAT scan and ultrasound. Ult rasound will be done today. He cannot have another ultrasound because he just got contrast for the l ower leg study, and he understands the risks, benefits, and alternatives, and need for further surgery for this very complicated medical issue that the patient has and he agrees. CELENA/RENATO Voice ID: [id number] Report ID: [id number]
[2019-02-07] MEDS: PIPER/TAZO/NS 3.375gm 3.375 GM/100 ML BAG IVPB SCH ×3 (00:33→17:00)
[2019-02-07] MEDS: MORPHINE 4 MG/ML SYR IV PRN ×3 (00:33→18:38)
[2019-02-07 06:18] LABS: Absolute Lymphocytes (CBC) 1.9 K/uL (0.7-4.9); Basophils % 0.9 % (0-1.3); Hematocrit 38.1 % (39.6-49.0); Lymphocytes % 21.2 % (15.3-44.8); MPV 7.9 fL (7.6-11.3); RBC Red Blood Cell Count 3.83 M/uL (4.33-5.43)
[2019-02-07 06:36] LABS: Albumin 2.7 g/dL (3.4-5.0); Bilirubin Total 0.3 mg/dL (0.2-1.0); Magnesium 2.3 mg/dL (1.8-2.4); Potassium 3.8 mmol/L (3.5-5.1); Protein, Total 7.6 g/dL (6.4-8.2)
[2019-02-07] MEDS ORDERED: POTASSIUM CL SA 10 MEQ TAB PO ONE (07:32)
--- NOTE | 2019-02-07 07:42 | EKG ---
Test Date: 2019-02-06 Test Time: 10:54:33 Dredge Worker: SHADI MEASUREMENT RESULTS: Intervals: Rate: 71 KS: 142 QRSD: 96 QT: 420 QTc: 456 [place]: P: 58 KS: 142 QRS: 65 T: 71 INTERPRETIVE STATEMENTS: Normal sinus rhythm Nonspecific T wave abnormality Abnormal ECG Compared to ECG 12/27/2018 11:59:15 T-wave abnormality now present Sinus tachycardia no longer present Atrial premature complex(es) no longer present Electronically Signed On 02-07-19 07:38:36 CDT by Bill Clark
[2019-02-07] MEDS: AMLODIPINE 10 MG TAB PO SCH (08:07)
[2019-02-07] MEDS: ATORVASTATIN 40 MG TAB PO SCH (08:08)
[2019-02-07] MEDS: levETIRAcetam 500 MG TAB PO SCH (08:08)
[2019-02-07] MEDS ORDERED: Ringers Lactate 1,000 ML IV ONE (08:23)
[2019-02-07] MEDS ORDERED: HOME MED 1 EA UNK (Levetiracetam [Keppra] 1,000 MG) PO SCH (09:00)
[2019-02-07] MEDS ORDERED: PROPOFOL 200 MG/20 ML VIAL IV ONE (10:02)
[2019-02-07] MEDS ORDERED: FENTANYL CITR 100 MCG/2 ML ONE (10:02)
[2019-02-07] MEDS ORDERED: LIDOCAINE 1% MPF 5 ML VIAL ONE (10:02)
[2019-02-07] MEDS ORDERED: MIDAZOLAM HCL 2 MG/2 ML INJ ONE (10:03)
[2019-02-07] MEDS ORDERED: BUPIVACAINE 0.5% PF 10 ML VIAL ONE (10:21)
[2019-02-07] MEDS ORDERED: KETOROLAC 30 MG/ML INJ ONE (10:45)
[2019-02-07] MEDS ORDERED: ONDANSETRON 4 MG/2 ML VIAL ONE (11:09)
[2019-02-07] MEDS: HYDROMORPHONE HCL 1 MG/ML INJ ONE ×2 (11:56→12:25)
--- NOTE | 2019-02-07 12:07 | P.OP ---
Obiee Architect: Gideon KELSEY Preoperative diagnosis: Infected Left Foot wound with Osteo Postoperative diagnosis: same Primary procedure: Left Foot Partial Foot Amputation Anesthesia: General Estimated blood loss: min Specimen: L Foot Partial Findings: as above Complications: None Transferred to: Recovery Room Condition: Good
--- NOTE | 2019-02-07 12:26 | P.PN ---
Subjective Date of Service: 02/07/19 Patient seen and examined at bedside. No family at bedside. Chart reviewed and case discussed with nursing staff. Pending -surgery today left foot, partial foot amputation No acute events noted overnight Review of Systems 10-point ROS is otherwise unremarkable Physical Examination - Vital Signs Temperature: 99.2 F Blood Pressure: 190/71 Pulse: 66 Respirations: 15 Pulse Ox (%): 97 - Physical Exam General: Alert, In no apparent distress HEENT: Atraumatic, PERRLA, EOMI Neck: Supple, JVD not distended Respiratory: Clear to auscultation bilaterally, Normal air movement Cardiovascular: Regular rate/rhythm, Normal S1 S2 Gastrointestinal: Normal bowel sounds, No tenderness Musculoskeletal: Erythema, Tenderness, Other (Infection, bone exposed) Integumentary: No rashes Neurological: Normal speech, Normal tone, Normal affect Lymphatics: No axilla or inguinal lymphadenopathy Assessment And Plan - Current Problems (Diagnosis) (1) Open wound of left lower leg with complication Current Visit: No Status: Acute Plan: Patient with multiple lower extremity amputations likely secondary to peripheral vascular disease. Patient with a recent amputation of left toe with subsequent trauma to the area. - CT of the foot consistent with findings of osteomyelitis - General surgery consulted, patient did go to OR for partial left foot amputation today. Recommendations appreciated. - NPO for surgery - continue broad-spectrum IV antibiotics with Zosyn - pain control Qualifiers: Encounter type: subsequent encounter Qualified Code(s): S81.802D - Unspecified open wound, left lower leg, subsequent encounter (2) Non-healing surgical wound Current Visit: No Status: Chronic Qualifiers: Encounter type: sequela Qualified Code(s): T81.89XS - Other complications of procedures, not elsewhere classified, sequela (3) Osteomyelitis Current Visit: Yes Status: Acute (4) CAD (coronary artery disease) Onset Date: 03/15/17 Current Visit: No Status: Chronic Plan: Stable, will continue home medications. Qualifiers: Coronary Disease-Associated Artery/Lesion type: [place] artery [place] vs. transplanted heart: [place] heart Associated angina: without angina Qualified Code(s): I25.10 - Atherosclerotic heart disease of [place] coronary artery without angina pectoris (5) CHF (congestive heart failure) Onset Date: 03/15/17 Current Visit: No Status: Chronic Plan: Stable, will continue home medications Qualifiers: Qualified Code(s): I50.22 - Chronic systolic (congestive) heart failure (6) COPD (chronic obstructive pulmonary disease) Onset Date: 03/15/17 Current Visit: No Status: Chronic Plan: Stable. Will continue breathing treatments as needed. Qualifiers: COPD type: chronic bronchitis Chronic bronchitis type: unspecified Qualified Code(s): J42 - Unspecified chronic bronchitis (7) Hyperlipemia Current Visit: No Status: Chronic Plan: Stable, continue home statin. Qualifiers: Hyperlipidemia type: unspecified Qualified Code(s): E78.5 - Hyperlipidemia , unspecified (8) Hypertension Onset Date: 01/07/16 Current Visit: No Status: Chronic Plan: Stable, continue home amlodipine Qualifiers: Hypertension type: essential hypertension Qualified Code(s): I10 - Essential (primary) hypertension (9) Methamphetamine abuse Onset Date: 03/15/17 Current Visit: No Status: Chronic (10) PAD (peripheral artery disease) Current Visit: No Status: Chronic (11) Alcohol abuse Onset Date: 01/07/16 Current Visit: No Status: Chronic (12) Elevated lipase Current Visit: Yes Status: Resolved Plan: Lipase now normalized. Unsure of etiology. Patient not really complaining of any abdominal pain/ nausea or vomiting. He does have a history of heavy alcohol use. Currently denies any alcohol usage. -unable to do CT of the abdomen with contrast today as patient already had a CT with contrast of the foot today. -Abdominal ultrasound with cholelithiasis without cholecystitis. -Clinically, No evidence of pancreatitis at this time. Will continue to monitor - Plan DVT prophylaxis: None GI prophylaxis: none Diet: NPO for surgery, then heart healthy after surgery. Disposition: Pending symptomatic improvement and surgical intervention with partial foot amputation today
[2019-02-07] MEDS ORDERED: SILVER NITRATE 1 APPL TOP SCH (19:00)
[2019-02-07] MEDS: HYDROCODONE/APAP 7.5/325 MG TAB PO PRN (21:18)
[2019-02-08] MEDS: PIPER/TAZO/NS 3.375gm 3.375 GM/100 ML BAG IVPB SCH ×3 (00:33→16:12)
[2019-02-08] MEDS: MORPHINE 4 MG/ML SYR IV PRN ×2 (00:34→06:10)
--- NOTE | 2019-02-08 01:14 | OP ---
Date of Procedure: 02/07/2019 Surgeon: Krish Burroughs MD Industrial Illuminating Engineer: LOW Lee. Preoperative Diagnosis: Left foot infection with osteomyelitis. Postoperative Diagnosis: Left foot infection with osteomyelitis. Procedure: Left foot partial amputation. Estimated Blood Loss: Minimal. Findings: Exposed third phalangeal proximal phalanx bone, infected wound. Anesthesia: General. Complications: None. Disposition: Patient tolerated the procedure, in stable condition, and taken to Recovery in good gen eral condition. Description Of Procedure: Patient was brought to the OR and placed in the supine position. General anesthesia was begun. Patient was prepped and draped in the usual sterile fashion. A 15-blade was u sed to make an incision around the infected portion of the forefoot and the ulcer on the medial foot all the way around to the plantar aspect where healthy skin could be seen and then dissection proceed ed all the way down to all the metatarsal bones. The bone cutter was used to divide all the bones an d then the entire forefoot was excised and amputated and sent to Pathology. The entire wound was irr igated. A rongeur and a rasp were used to smooth out rough edges. Wound was irrigated, bleeding con trolled with cautery. All necrotic tissue had been removed. Then the skin was loosely approximated with interrupted 2-0 nylon sutures. Medial aspect of the wound was left open for drainage purposes. Sterile dressing was applied. Patient was awakened and taken to Recovery in good general condition. /MODL Voice ID: [id number] Report ID: [id number]
[2019-02-08] MEDS: HYDROCODONE/APAP 7.5/325 MG TAB PO PRN ×3 (03:31→16:15)
[2019-02-08 06:27] LABS: Absolute Lymphocytes (CBC) 1.9 K/uL (0.7-4.9); Basophils % 0.8 % (0-1.3); Hematocrit 29.8 % (39.6-49.0); Lymphocytes % 29.3 % (15.3-44.8); MPV 8.1 fL (7.6-11.3); RBC Red Blood Cell Count 2.99 M/uL (4.33-5.43)
[2019-02-08 06:47] LABS: Albumin 2.2 g/dL (3.4-5.0); Bilirubin Total 0.2 mg/dL (0.2-1.0); Protein, Total 6.3 g/dL (6.4-8.2)
[2019-02-08] MEDS: AMLODIPINE 10 MG TAB PO SCH (08:27)
[2019-02-08] MEDS: levETIRAcetam 500 MG TAB PO SCH (08:27)
[2019-02-08] MEDS: ATORVASTATIN 40 MG TAB PO SCH (08:27)
--- NOTE | 2019-02-08 10:27 | P.PN ---
Subjective Date of Service: 02/08/19 Subjective: Improving Patient seen and examined at bedside. No family at bedside. Chart reviewed and case discussed with nursing staff. Pending -surgery today left foot, partial foot amputation No acute events noted overnight Review of Systems 10-point ROS is otherwise unremarkable Physical Examination - Vital Signs Temperature: 97.5 F Blood Pressure: 118/54 Pulse: 70 Respirations: 19 Pulse Ox (%): 95 - Physical Exam General: Alert, In no apparent distress HEENT: Atraumatic, PERRLA, EOMI Neck: Supple, JVD not distended Respiratory: Clear to auscultation bilaterally, Normal air movement Cardiovascular: Regular rate/rhythm, Normal S1 S2 Gastrointestinal: Normal bowel sounds, No tenderness Musculoskeletal: Other (surgical site without bleeding; ) Integumentary: No rashes Neurological: Normal speech, Normal tone, Normal affect Lymphatics: No axilla or inguinal lymphadenopathy Assessment And Plan - Current Problems (Diagnosis) (1) Open wound of left lower leg with complication Current Visit: No Status: Acute Plan: Patient with multiple lower extremity amputations likely secondary to peripheral vascular disease. Patient with a recent amputation of left toe with subsequent trauma to the area. - CT of the foot consistent with findings of osteomyelitis - General surgery consulted, patient did go to OR for partial left foot amputation today. Recommendations appreciated. - Regular diet - pt refused heart healthy diet. - continue broad-spectrum IV antibiotics with Zosyn. Will likely not need IV antibiotic on discharge. Will DC on PO clindamycin and doxycycline - pain control Qualifiers: Encounter type: subsequent encounter Qualified Code(s): S81.802D - Unspecified open wound, left lower leg, subsequent encounter (2) Non-healing surgical wound Current Visit: No Status: Chronic Qualifiers: Encounter type: sequela Qualified Code(s): T81.89XS - Other complications of procedures, not elsewhere classified, sequela (3) Osteomyelitis Current Visit: Yes Status: Acute (4) CAD (coronary artery disease) Onset Date: 03/15/17 Current Visit: No Status: Chronic Plan: Stable, will continue home medications. Qualifiers: Coronary Disease-Associated Artery/Lesion type: [place] artery [place] vs. transplanted heart: [place] heart Associated angina: without angina Qualified Code(s): I25.10 - Atherosclerotic heart disease of [place] coronary artery without angina pectoris (5) CHF (congestive heart failure) Onset Date: 03/15/17 Current Visit: No Status: Chronic Plan: Stable, will continue home medications Qualifiers: Qualified Code(s): I50.22 - Chronic systolic (congestive) heart failure (6) COPD (chronic obstructive pulmonary disease) Onset Date: 03/15/17 Current Visit: No Status: Chronic Plan: Stable. Will continue breathing treatments as needed. Qualifiers: COPD type: chronic bronchitis Chronic bronchitis type: unspecified Qualified Code(s): J42 - Unspecified chronic bronchitis (7) Hyperlipemia Current Visit: No Status: Chronic Plan: Stable, continue home statin. Qualifiers: Hyperlipidemia type: unspecified Qualified Code(s): E78.5 - Hyperlipidemia , unspecified (8) Hypertension Onset Date: 01/07/16 Current Visit: No Status: Chronic Plan: Stable, continue home amlodipine Qualifiers: Hypertension type: essential hypertension Qualified Code(s): I10 - Essential (primary) hypertension (9) Methamphetamine abuse Onset Date: 03/15/17 Current Visit: No Status: Chronic (10) PAD (peripheral artery disease) Current Visit: No Status: Chronic (11) Alcohol abuse Onset Date: 01/07/16 Current Visit: No Status: Chronic (12) Elevated lipase Current Visit: Yes Status: Resolved Plan: Lipase now normalized. Unsure of etiology. Patient not really complaining of any abdominal pain/ nausea or vomiting. He does have a history of heavy alcohol use. Currently denies any alcohol usage. -unable to do CT of the abdomen with contrast today as patient already had a CT with contrast of the foot today. -Abdominal ultrasound with cholelithiasis without cholecystitis. -Clinically, No evidence of pancreatitis at this time. Will continue to monitor - Plan DVT prophylaxis: None GI prophylaxis: none Diet: Regular diet, Pt refused heart healthy diet. Disposition: Pending symptomatic improvement.
--- NOTE | 2019-02-08 15:35 | PN ---
Date of Progress Note: 02/08/2019 Subjective: Patient is awake, alert, had some incisional pain. He had some bleeding in the dressing s with nurses change and has not any bleeding since. He had been ambulating and putting pressure on the wound against advice yesterday prior to the bleeding episode. I have advised him again the impor tance of offloading the wound while it is healing. Objective: Vital Signs: Stable. He is afebrile. Skin: Wound exam, there was no evidence of any bleeding or oozing noted this morning. Laboratory Data: Reviewed. His H and H are 10.3 and 29.8. Left shift has improved. Chemistry revi ewed as well. Assessment: Status post left foot partial amputation. Recommendations: IV antibiotics. Wound care as ordered, offloading. Hopefully discharge in a day o r 2. /MODL Voice ID: [id number] Report ID: [id number]
[2019-02-09] MEDS: PIPER/TAZO/NS 3.375gm 3.375 GM/100 ML BAG IVPB SCH ×3 (00:15→17:36)
[2019-02-09] MEDS: HYDROCODONE/APAP 7.5/325 MG TAB PO PRN ×3 (00:17→23:48)
[2019-02-09 05:01] LABS: Basophils % 0.8 % (0-1.3); Hematocrit 29.5 % (39.6-49.0); MPV 8.1 fL (7.6-11.3); RBC Red Blood Cell Count 2.98 M/uL (4.33-5.43)
[2019-02-09 05:12] LABS: Albumin 2.2 g/dL (3.4-5.0); Bilirubin Total 0.1 mg/dL (0.2-1.0); Phosphorus 3.3 mg/dL (2.5-4.9); Potassium 3.9 mmol/L (3.5-5.1); Protein, Total 6.4 g/dL (6.4-8.2)
[2019-02-09] MEDS ORDERED: POTASSIUM CL SA 10 MEQ TAB PO ONE (09:00)
[2019-02-09] MEDS: AMLODIPINE 10 MG TAB PO SCH (09:03)
[2019-02-09] MEDS: ATORVASTATIN 40 MG TAB PO SCH (09:04)
[2019-02-09] MEDS: levETIRAcetam 500 MG TAB PO SCH (09:04)
[2019-02-09] MEDS: NICOTINE 21 MG/PAT TD SCH (10:30)
--- NOTE | 2019-02-09 11:06 | PN ---
Date of Progress Note: 02/09/2019 Subjective: Patient was not in his room when I went to see him. He had walked outside against medic al advice for smoking purposes so therefore I was not able to examine him. His vital signs were stable. He is afebrile. Assessment: Status post left foot partial amputation. Recommendations: I advised the nursing staff to state to him that he can have a Nicoderm patch. He does not need to go outside. I want him to offload the wound because it is counterintuitive for heal ing purposes if he puts a lot of pressure on it. Continue IV antibiotics. Wound care is ordered. D ischarge planning. /MODL Voice ID: [id number] Report ID: [id number]
--- NOTE | 2019-02-09 12:31 | P.PN ---
Subjective Date of Service: 02/09/19 Subjective: No new changes, No C/O voiced Patient seen and examined at bedside. No family at bedside. Chart reviewed and case discussed with nursing staff. s/p surgery left foot, partial foot amputation No acute events noted overnight patient does go down to smoke. Review of Systems 10-point ROS is otherwise unremarkable Physical Examination - Vital Signs Temperature: 97.6 F Blood Pressure: 104/60 Pulse: 60 Respirations: 17 Pulse Ox (%): 97 - Physical Exam General: Alert, In no apparent distress HEENT: Atraumatic, PERRLA, EOMI Neck: Supple, JVD not distended Respiratory: Clear to auscultation bilaterally, Normal air movement Cardiovascular: Regular rate/rhythm, Normal S1 S2 Gastrointestinal: Normal bowel sounds, No tenderness Musculoskeletal: Other (Incision site clean/dry. ) Integumentary: No rashes Neurological: Normal speech, Normal tone, Normal affect Lymphatics: No axilla or inguinal lymphadenopathy Assessment And Plan - Current Problems (Diagnosis) (1) Open wound of left lower leg with complication Current Visit: No Status: Acute Plan: Patient with multiple lower extremity amputations likely secondary to peripheral vascular disease. Patient with a recent amputation of left toe with subsequent trauma to the area. - CT of the foot consistent with findings of osteomyelitis - General surgery consulted, patients/p partial left foot amputation, POD #2 Recommendations appreciated. - Regular diet - pt refused heart healthy diet. - continue broad-spectrum IV antibiotics with Zosyn. Will likely not need IV antibiotic on discharge. Will DC on PO clindamycin and doxycycline - pain control Qualifiers: Encounter type: subsequent encounter Qualified Code(s): S81.802D - Unspecified open wound, left lower leg, subsequent encounter (2) Non-healing surgical wound Current Visit: No Status: Chronic Qualifiers: Encounter type: sequela Qualified Code(s): T81.89XS - Other complications of procedures, not elsewhere classified, sequela (3) Osteomyelitis Current Visit: Yes Status: Acute (4) CAD (coronary artery disease) Onset Date: 03/15/17 Current Visit: No Status: Chronic Plan: Stable, will continue home medications. Qualifiers: Coronary Disease-Associated Artery/Lesion type: [place] artery [place] vs. transplanted heart: [place] heart Associated angina: without angina Qualified Code(s): I25.10 - Atherosclerotic heart disease of [place] coronary artery without angina pectoris (5) CHF (congestive heart failure) Onset Date: 03/15/17 Current Visit: No Status: Chronic Plan: Stable, will continue home medications Qualifiers: Qualified Code(s): I50.22 - Chronic systolic (congestive) heart failure (6) COPD (chronic obstructive pulmonary disease) Onset Date: 03/15/17 Current Visit: No Status: Chronic Plan: Stable. Will continue breathing treatments as needed. Qualifiers: COPD type: chronic bronchitis Chronic bronchitis type: unspecified Qualified Code(s): J42 - Unspecified chronic bronchitis (7) Hyperlipemia Current Visit: No Status: Chronic Plan: Stable, continue home statin. Qualifiers: Hyperlipidemia type: unspecified Qualified Code(s): E78.5 - Hyperlipidemia , unspecified (8) Hypertension Onset Date: 01/07/16 Current Visit: No Status: Chronic Plan: Stable, continue home amlodipine Qualifiers: Hypertension type: essential hypertension Qualified Code(s): I10 - Essential (primary) hypertension (9) Methamphetamine abuse Onset Date: 03/15/17 Current Visit: No Status: Chronic (10) PAD (peripheral artery disease) Current Visit: No Status: Chronic (11) Alcohol abuse Onset Date: 01/07/16 Current Visit: No Status: Chronic (12) Elevated lipase Current Visit: Yes Status: Resolved Plan: Lipase now normalized. Unsure of etiology. Patient not really complaining of any abdominal pain/ nausea or vomiting. He does have a history of heavy alcohol use. Currently denies any alcohol usage. -unable to do CT of the abdomen with contrast today as patient already had a CT with contrast of the foot today. -Abdominal ultrasound with cholelithiasis without cholecystitis. -Clinically, No evidence of pancreatitis at this time. Will continue to monitor (13) Nicotine dependence Current Visit: Yes Status: Chronic Plan: Counseled, more than 10 min. -Nicotine patch ordered Qualifiers: Nicotine product type: cigarettes Substance use status: uncomplicated Qualified Code(s): F17.210 - Nicotine dependence, cigarettes, uncomplicated - Plan DVT prophylaxis: None GI prophylaxis: none Diet: Regular diet, Pt refused heart healthy diet. Disposition: Pending symptomatic improvement.
[2019-02-10] MEDS: PIPER/TAZO/NS 3.375gm 3.375 GM/100 ML BAG IVPB SCH ×2 (00:52→09:52)
[2019-02-10] MEDS: NICOTINE 21 MG/PAT TD SCH (09:50)
[2019-02-10] MEDS: AMLODIPINE 10 MG TAB PO SCH (09:51)
[2019-02-10] MEDS: ATORVASTATIN 40 MG TAB PO SCH (09:51)
[2019-02-10] MEDS: levETIRAcetam 500 MG TAB PO SCH (09:51)
[2019-02-10 11:27] VITALS: O2SAT 97
[2019-02-10] MEDS: HYDROCODONE/APAP 7.5/325 MG TAB PO PRN (11:44)
[2019-02-10 14:36] VITALS: BP 97/53; TEMP 98.5
--- NOTE | 2019-02-10 15:19 | PN ---
Date of Progress Note: 02/10/2019 Subjective: Patient is awake, alert. No complaint. Objective: Vital Signs: Stable. Afebrile. Skin: Dressing is clean, dry, intact. Assessment: Status post partial amputation of left foot. Recommendations: Patient is cleared for discharge on Cipro and doxy. [facility]. Wound care order given. CELENA/MODRoyal Voice ID: [id number] Report ID: [id number]
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
== END 2019-02-10 13:05 | disposition home health service (06) | DRG 475 ==
LOC: ER 07:53 → ERHOLD 12:00 → 2ND 15:23
PROVIDERS: ADMIT Family Medicine; ATTEND Family Medicine
PROC: 0Y6N0ZB Detachment at Left Foot, Partial 2nd Ray, Open Approach (ICD-10-PCS; 2019-02-07)
PROC: 0Y6N0ZC Detachment at Left Foot, Partial 3rd Ray, Open Approach (ICD-10-PCS; 2019-02-07)
PROC: 0Y6N0ZD Detachment at Left Foot, Partial 4th Ray, Open Approach (ICD-10-PCS; 2019-02-07)
PROC: 0Y6N0ZF Detachment at Left Foot, Partial 5th Ray, Open Approach (ICD-10-PCS; 2019-02-07)
PROC: 0Y6N0Z9 Detachment at Left Foot, Partial 1st Ray, Open Approach (ICD-10-PCS; principal; 2019-02-07 09:30)
DX: M86.172 Other acute osteomyelitis, left ankle and foot (principal); I50.22 Chronic systolic (congestive) heart failure; S91.302A Unspecified open wound, left foot, initial encounter; X58.XXXA Exposure to other specified factors, initial encounter; Y92.9 Unspecified place or not applicable; I73.9 Peripheral vascular disease, unspecified; I25.10 Atherosclerotic heart disease of native coronary artery without angina pectoris; J44.9 Chronic obstructive pulmonary disease, unspecified; E78.5 Hyperlipidemia, unspecified; F15.10 Other stimulant abuse, uncomplicated; I11.0 Hypertensive heart disease with heart failure; R79.9 Abnormal finding of blood chemistry, unspecified; F17.210 Nicotine dependence, cigarettes, uncomplicated; Z89.422 Acquired absence of other left toe(s); Z86.73 Personal history of transient ischemic attack (TIA), and cerebral infarction without residual deficits; Z89.431 Acquired absence of right foot
CPT/HCPCS: 36415; 73701; 76700; 80048; 80053; 80076; 81003; 81015; 82550; 82553; 82962; 83605; 83690; 83735; 84100; 84145; 84484; 85025; 85610; 85730; 87040; 88305; 88311; 93005; 96365; 96375; 99285; J1170; J2250; J2405; J2543; J2704; J3010; J7030; Q9967

== ENCOUNTER 2019-02-16 18:19 | Inpatient (IN) | payer OTHER ==
--- OUTSIDE RECORDS SUMMARY | 2019-02-16 18:21 | XMS REPORT | Clinical Summary ---
:1965 [facility] Address [address] [place] [address] Care Team Providers Name Role Phone Unavailable [...] - Hospital Encounter General Internal ArifFermin, Seizures ([facility] ); 10/14/2018 Medicine MD Acute kidney injury ([facility]); Gadicherjamaal, H/O ETOH abuse; Emily Status epilepticus ([facility]) MD Olga 10/12/2018 Travel after 02/15/2018 Social History Tobacco Use Types Packs/Day Years [...] procedure are in the results section. after 02/15/2018 Results EKG-SCANNED (10/16/2018 2:10 PM CDT) Narrative Performed At RHYTHM STRIP - SCAN (10/16/2018 2:10 PM CDT) Narrative Performed At EEG AWAKE AND DROWSY (10/14/2018 1:57 PM CDT) Specimen Narrative Performed At Date(s) of EE10/14/18 [facility] DATE OF REPORT: 10/14/18 ACC: [id number] EEG Number: [id number] Start time: 13:36 Stop time: 13:57 ICD-10: R56.9 Unspecified Convulsions CPT Code: 23121 EEG: awake and drowsy <40 min HISTORY: [...] of EE10/14/18 DATE OF REPORT: 10/14/18 ACC: [id number] EEG Number: [id number] Start time: 13:36 Stop time: 13:57 ICD-10: R56.9 Unspecified Convulsions CPT Code: 41896 EEG: awake and drowsy <40 min HISTORY: [...] Sodium 133 (L) 136 - 145 meq/L [facility] Potassium 4.1Comment: Specimen slightly 3.5 - 5.1 meq/L [facility]lor[facility] 103 98 - 107 meq/L [facility] CO2 19 (L) 22 - 29 meq/L [facility] BUN 8 7 - 21 mg/dL [facility] Creatinine 0.83Comment: Specimen 0.57 - 1.25 mg/dL [facility] slightly hemolyzed [facility] Glucose 84 70 - 105 mg/dL [facility] Calcium 8.5 8.4 - 10.2 mg/dL [facility] EGFR 97Comment: ESTIMATED GFR IS mL/min/1.73 sq m [facility] NOT ACCURATE [facility] CLEARANCE IN PREDICTING GLOMERULAR FILTRATION RATE. ESTIMATED GFR IS NOT APPLICABLE FOR DIALYSIS PATIENTS. Specimen Blood Performing Organization Address City/State/Zipcode Phone Number [facility] [address] [place] [address] [phone] CENTER CBC with platelet count + automated diff (10/13/2018 4:25 AM CDT) WBC 9.7 3.5 - 10.5 K/L [facility] RBC 4.44 (L) 4.63 - 6.08 M/L [facility] Hemoglobin 14.9 13.7 - 17.5 GM/DL [facility] Hematocrit 44.1 40.1 - 51.0 % [facility] MCV 99.3 (H) 79.0 - 92.2 fL [facility] MCH 33.6 (H) 25.7 - 32.2 pg [facility] MCHC 33.8 32.3 - 36.5 GM/DL [facility] RDW 15.2 (H) 11.6 - 14.4 % [facility] Platelets 177 150 - 450 K/CU MM [facility] MPV 9.7 9.4 - 12.4 fL [facility] nRBC 0 0 - 0 /100 WBC [facility] % Neutros 73 % [facility] % Lymphs 16 % [facility] % Monos 11 % [facility] % Eos 0 % [facility] % Baso 0 % [facility] # Neutros 7.05 (H) 1.78 - 5.38 K/L [facility] # Lymphs 1.52 1.32 - 3.57 K/L [facility] # Monos 1.04 (H) 0.30 - 0.82 K/L [facility] # Eos 0.01 (L) 0.04 - 0.54 K/L [facility] # Baso 0.04 0.01 - 0.08 K/L [facility] Immature Granulocytes-Relative 0 0 - 1 % [facility] Specimen Blood Performing Organization Address City/[facility] Cent[facility]ode Phone Number [facility] [address] [place] [phone] [place] Blood Culture - Routine (Right Venipuncture) (10/12/2018 5:31 PM CDT)Only the most recent of2 resultswithin the time period is included. Result No growth in 5 days [facility] Specimen Blood Performing Organization Address City/[facility] Centercode Phone Number [address] [address] [phone] [place] Vitamin B12 and Folate (10/12/2018 5:28 PM CDT) Vitamin B12 683 213 - 816 pg/mL [facility] Folate >40.0 >=7.0 ng/mL [facility] Specimen Blood Performing Organization Address City/[facility] Centerconm Phone Number [facility] [address] [place] [phone] [place] Phenytoin level, total and free (10/12/2018 5:28 PM CDT) Phenytoin 13.0 10.0 - 20.0 ug/mL [facility] Dilantin, Free 0.58 (L) 1.00 - 2.00 mcg/ml [facility] Specimen Blood Narrative Performed At Performing Organization Address City/[facility] Centercode Phone Number [facility] [address], [address] [place] [address] Phosphorus (10/12/2018 5:28 PM CDT) Phosphorus 4.0 2.3 - 4.7 mg/dL [facility] Specimen Blood Performing Organization Address City/State/Zipcode Phone Number [facility] [address] [place] [address] [phone] [place] Magnesium (10/12/2018 5:28 PM CDT) Magnesium 2.5 1.6 - 2.6 mg/dL [facility] Specimen Blood Performing Organization Address City/[facility]/Zipcode Phone Number [facility] [address] [place] [address] [phone] [place] [address] brain without IV contrast (10/12/2018 4:38 PM CDT) Specimen Narrative Performed At FINAL REPORT [facility] CT head without contrast. Reason for exam: [...] MD Report Verified Date/Time:10/12/2018 16:58:56 Reading Location: [id number] Neuro Reading Room Procedure Note Interface, [...] Report Verified Date/Time: 10/12/2018 16:58:56 Reading Location: [facility] [id number] Neuro Reading Room Performing Organization Address City/State/Zipcode Phone Number [facility] Urinalysis w/Microscopic (10/12/2018 3:59 PM CDT) Color, UA Light Yellow [facility] Clarity, UA Clear [facility] Specific [place], UA 1.007 1.001 - 1.035 [facility] pH, UA 5.5 5.0 - 8.0 [facility] Protein, UA 10 mg/dL (A) Negative [facility] Glucose, UA Negative Negative [facility] Ketones, UA 20 mg/dL (A) Negative [facility] Bilirubin, UA Negative Negative [facility] Blood, UA Trace (A) Negative [facility] Nitrite, UA Negative Negative [facility] Leukocytes, UA Negative Negative [facility] Urobilinogen, UA 0.2 0.2 - 1.0 mg/dL [facility] RBC, UA <1 /HPF [facility] WBC, UA 1 /HPF [facility] Squam Epithel, UA <1 /HPF [facility] Specimen Source Urine, Voided [facility] Specimen Urine Performing Organization Address City/State/Zipcode Phone Number [facility] [address] [place] [address] [phone] CENTER after 02/15/2018 Insurance Payer Benefit Plan / Subscriber ID Type Phone Address Group [employer] - [employer] MEDICARE xxxxxxxx [facility] Contracted [phone] [address] MEDICARE [employer] HMO POS [id number] [place] [address] (Home) [place] [address]
--- OUTSIDE RECORDS SUMMARY | 2019-02-16 18:28 | XMS REPORT | Continuity of Care Document ---
:1965 Author Organization [employer] Care Team Providers Name Role Phone [employer] Unavailable Unavailable Problems Problem Status Onset Classification Date Comments Source Date Reported ANEMIA Active 04/04/20 The 16 [facility] Discharge 03/14/20 03/17/2016 The Diagnosis: Acute 16 [facility] on chronic renal failure Discharge 03/14/20 03/17/2016 The Diagnosis: Anemia 16 [facility] Discharge 03/14/20 03/17/2016 The Diagnosis: 16 [facility] Post-operative pain Discharge 03/14/20 03/17/2016 The Diagnosis: Acute 16 [facility] hypokalemia OTHER Active 03/13/20 The 16 [facility] FOOT GANGRENE Active 01/31/20 The 16 [facility] LEFT FOOT SORES Active 01/31/20 The 16 [facility] Discharge 02/17/20 02/19/2015 The Diagnosis: 15 [facility] Hyperlipidemia Discharge 02/17/20 02/19/2015 The Diagnosis: 15 [place] Hypertension Discharge 02/17/20 02/19/2015 The Diagnosis: Angina 15 [facility] pectoris CHEST PAIN Active 02/16/20 The 15 [facility] CP Active 02/16/20 The 15 [facility] Discharge 02/10/20 02/12/2015 The Diagnosis: Wrist 15 [facility] sprain LEFT WRIST PAIN Active 02/10/20 The 15 [facility] Discharge 01/24/20 01/26/2015 The Diagnosis: 15 [facility] Epileptic seizure, generalized Discharge 01/24/20 01/26/2015 The Diagnosis: 15 [facility] Cerebral seizure AMS Active 01/24/20 The 15 [facility] WOUND INFECTION V Active 10/21/19 The NECFAS;CHRONIC 14 [facility] OSTEOMY Acute Active Problem 04/08/2016 The osteomyelitis [facility] CHF - Congestive Active Problem 04/08/2016 The heart failure [facility] HTN (Confirmed) Active Problem 04/08/2016 [place] Bronchitis Active Problem 04/08/2016 [place] COPD Active Problem 04/08/2016 [place] Nose bleed Active Problem 04/08/2016 [place] Seizure Active Problem 04/08/2016 [place] H/O candidiasis Active Problem 04/08/2016 [place] H/O amputation of Active Problem 04/08/2016 The lesser toe [facility] Hx of peripheral Active Problem 04/08/2016 The vascular disease [facility] BPH (Confirmed) Active Problem 04/08/2016 [place] CELLULITIS OF Active The FOOT [facility] AC Active The OSTEOMYELITIS-UNS [facility] PEC CHEST PAIN NOS Active [place] GANGRENE, NOT Active The ELSEWHERE [facility] CLASSIFIED ANEMIA, Active The UNSPECIFIED [facility] Medications Medication Details Route Status Patient Ordering Order Source Instructions Provider Date Sodium Chloride IVPB, 150 Active The 0.9% IV ml/hr, PRN, 2015 [facility] Start date: 04/05/16 8:00:00 [employer], Duration: 30, 1,000 ml EPINEPHrine 0.5 mg, 0.5 Active The mL, Route: 2015 [facility] IVP, Drug form: INJ, PRN, PRN Other -See Comment, Start date: 04/05/16 7:22:00 [employer], Duration: 30 day, Stop date: 05/05/16 7:21:00 CSTNotes: MEDICATION WASTE Product Size: 1 mg Product Wasted: ___ mg Solu-CORTEF 100 mg, 2 mL, Active The Route: IVP, 2015 [facility] Drug form: PDR/INJ, PRN, PRN Other -See Comment, Start date: 04/05/16 7:22:00 [employer], Duration: 30 day, Stop date: 05/05/16 7:21:00 CSTNotes: (Same as: Solu-CORTEF) Benadryl 50 mg, 1 mL, Active The Route: IVP, 2015 [facility] Drug form: INJ, PRN, PRN Other -See Comment, Start date: 04/05/16 7:22:00 [employer], Duration: 30 day, Stop date: 05/05/16 7:21:00 CSTNotes: (Same as: Benadryl) Sodium Chloride IV, 0 ml/hr, Active The 0.9% IV PRN, PRN Blood 2015 [facility] Transfusion, Start date: 04/05/16 7:21:00 [employer], Duration: 30, 250 ml heparin flush 500 unit, 5 Active The mL, Route: 2015 [facility] IVP, Drug form: SOLN, PRN, PRN Line Flush, Start date: 04/05/16 7:21:00 [employer], Duration: 30 day, Stop date: 05/05/16 7:20:00 CSTNotes: (Same as: Heparin Lock Flush) BD Normal Saline 20 mL, Route: Active The Flush IVP, Drug 2015 [facility] Form: INJ, PRN, PRN Line Flush, Start date: 04/05/16 7:21:00 [employer]ING SU[employer], Duration: 30 day, Stop date: 05/05/16 7:20:00 CSTNotes: (Same as: BD Posiflush) Benadryl 25 mg, 0.5 mL, Active The Route: IVP, 2015 [facility] Drug form: INJ, Before Transfusion, PRN Blood Transfusion, Start date: 04/05/16 7:21:00 [employer], Duration: 30 day, Stop date: 05/05/16 7:20:00 CSTNotes: (Same as: Benadryl) Tylenol 650 mg, 2 tab, Active The Route: PO, 2015 [facility] Drug form: TAB, Before Transfusion, PRN Blood Transfusion, Start date: 04/05/16 7:20:00 [employer] SU[employer], Duration: 30 day, Stop date: 05/05/16 7:19:00 CSTNotes: Do not exceed 4 gm/day. (Same as: Tylenol) Acetaminophen 325 1 tab, Route: Inactive The MG / Hydrocodone PO, Drug Form: 2015 [facility] Bitartrate 5 MG TAB, Dosing Oral Tablet [[place] Weight 98.636, 5/325] kg, ONCE, STAT, Start date: 03/14/16 6:34:00 CDT, Stop date: 03/14/16 6:34:00 CDTNotes: (Same as: [place] 325/5) Do not exceed 4gm/day of acetaminophen. Acetaminophen 300 1 tab, PO, No Longer The MG / Codeine Q4H, PRN Pain, Active 2015 [facility] Phosphate 30 MG X 2 day, # 12 Oral Tablet tab, 0 [Tylenol with Refill(s) Codeine #3] Zofran 4 mg, 2 mL, No Longer The Route: IVP, Active 2015 [facility] Drug form: INJ, ONCE, Dosing Weight 98.636, kg, Priority: STAT, Start date: 03/13/16 23:18:00 CDT, Stop date: 03/13/16 23:18:00 CDTNotes: (Same as: Zofran) MEDICATION WASTE Product Size: 4 mg Product Wasted: ___ mg Dilaudid 0.5 mg, 0.5 No Longer The mL, Route: Active 2015 [facility] IVP, Drug form: INJ, ONCE, Dosing Weight 98.636, kg, Priority: STAT, Start date: 03/13/16 23:18:00 CDT, Stop date: 03/13/16 23:18:00 CDTNotes: Same as: Dilaudid Sodium Chloride 500 mL, 500 No Longer The 0.154 MEQ/ML ml/hr, Infuse Active 2015 [facility] Injectable Over: 1 hr, Solution Route: IV, 500, Drug form: INJ, ONCE, Priority: STAT, Dosing Weight 98.636 kg, Start date: 03/13/16 23:18:00 CDT, Duration: 1 doses or times, Stop date: 03/13/16 23:18:00 CDT Oxycodone 15 mg=3 tab, Active The Hydrochloride 5 MG PO, Q4H, PRN 2015 [facility] Oral Tablet Pain Score 7-10, 0 Refill(s) Oxycodone 15 mg, 3 tab, Inactive The Hydrochloride 5 MG Route: PO, 2015 [facility] Oral Tablet Drug form: TAB, Q4H, Dosing Weight 96.023, kg, PRN Pain Score 7-10, Start date: 02/18/16 8:43:00 CDT, Duration: 30 day, Stop date: 03/19/16 8:42:00 CDTNotes: (Same as: Roxicodone) Ceftriaxone 2 gm, Route: No Longer The IVPB, [id number], Active 2015 [facility] Dosing Weight 96.023, kg, Start date: 02/17/16 15:00:00 CDT, Duration: 30 day, Stop date: 03/17/16 15:00:00 CDTNotes: (Same As: Rocephin). Use with 100 mL NS and infuse over 30 min MEDICATION WASTE Product Size: 2000 mg Product Wasted: ___ mg Albuterol 0.83 NEB, PRN, PRN Active The MG/ML Inhalant Respiratory 2015 [facility] Solution Protocol, 0 Refill(s) chlorhexidine 1 appl, BATHE, Active The gluconate 40 MG/ML Q--W-, 0 2015 [facility] Medicated Liquid Refill(s) Soap tamsulosin 0.4 mg 0.4 mg=1 cap, Active The oral capsule PO, After 2015 [facility] Dinner, 0 Refill(s) fluconazole 100 mg 200 mg=2 tab, Active The oral tablet PO, [id number], 0 2015 [facility] Refill(s) pantoprazole 40 mg 40 mg=1 tab, Active The oral enteric PO, Before 2015 [facility] coated tablet Breakfast, 0 Refill(s) Acetaminophen 325 1 tab, PO, Active The MG / Hydrocodone Q4H, PRN Pain 2015 [facility] Bitartrate 5 MG Score 1-3, 0 Oral Tablet Refill(s) cefTRIAXone + 2 gm, Route: No Longer The sodium chloride IVPB, [id number], Active 2015 [facility] 0.9% INJ 100 mL Dosing Weight 96.023, kg, Start date: 02/15/16 18:00:00 CDT, Duration: 2 day, Stop date: 02/16/16 18:00:00 CDTNotes: (Same As: Rocephin). Use with 100 mL NS and infuse over 30 min MEDICATION WASTE Product Size: 2000 mg Product Wasted: ___ mg Flomax 0.4 mg, 1 cap, No Longer The Route: PO, Active 2015 [facility] Drug form: CAP, After Dinner, Dosing Weight 96.023, kg, Start date: 02/13/16 17:00:00 CDT, Duration: 30 day, Stop date: 03/13/16 17:00:00 CDTNotes: (Same As: Flomax) "Do Not Crush" vancomycin + 1,000 mg, No Longer The sodium chloride Route: IVPB, Active 2015 [facility] 0.9% INJ 250 mL Q24H, Start date: 02/13/16 6:00:00 CDT, Duration: 30 day, Stop date: 03/13/16 6:00:00 CDTNotes: TIME CRITICAL MEDICATION (Same As: Vancocin) Infusion rate 2001 mg: infuse over 2.5 hours MEDICATION WASTE Product Size: 1000 mg Product Wasted: ___ mg Fluconazole 200 mg, 2 tab, No Longer The Route: PO, Active 2015 [facility] Drug form: TAB, [id number], Dosing Weight 96.023, kg, Start date: 02/12/16 16:00:00 CDT, Duration: 30 day, Stop date: 03/12/16 16:00:00 CDTNotes: (Same as: Diflucan) Dilaudid 1.5 mg, 0.75 No Longer The mL, Route: Active 2015 [facility] IVP, Drug form: INJ, Q4H, Dosing Weight 96.023, kg, PRN Pain Score 7-10, Start date: 02/12/16 14:19:00 CDT, Stop date: 03/13/16 14:18:00 CDTNotes: Same as: Dilaudid gabapentin 600 mg, 2 cap, No Longer The Route: PO, Active 2015 [facility] Drug form: CAP, TID, Dosing Weight 97.273, kg, Start date: 02/12/16 13:00:00 CDT, Duration: 30 day, Stop date: 03/13/16 9:00:00 CDTNotes: (Same as: Neurontin) Naloxone 0.4 mg, 1 mL, Inactive The Route: IVP, 2015 [facility] Drug form: INJ, Q2MIN, Dosing Weight 96.023, kg, PRN Narcotic Reversal, Start date: 02/12/16 9:59:00 CDT, Duration: 8 doses or times, Stop date: Limited # of timesNotes: Same as Narcan Lorazepam 0.5 mg, 0.25 Inactive The mL, Route: 2015 [facility] IVP, Drug form: INJ, Q20Min, Dosing Weight 96.023, kg, PRN Anxiety, Start date: 02/12/16 9:59:00 CDT, Duration: 3 doses or times, Stop date: Limited # of timesNotes: (Same as: Ativan) Ondansetron 4 mg, Route: Inactive The IVP, ONCE, 2015 [facility] Dosing Weight 96.023, kg, PRN Nausea & Vomiting, Start date: 02/12/16 9:59:00 CDT Glycopyrrolate 0.2 mg, 1 mL, Inactive The Route: IVP, 2015 [facility] Drug form: INJ, Q5Min, Dosing Weight 96.023, kg, PRN Bradycardia, Start date: 02/12/16 9:59:00 CDT, Duration: 3 doses or times, Stop date: Limited # of timesNotes: (Same as: [place]) Flumazenil 0.2 mg, 2 mL, Inactive The Route: IVP, 2015 [facility] Drug form: INJ, PRN, Dosing Weight 96.023, kg, PRN Benzodiazepine Reversal, Initial dose, Start date: 02/12/16 9:59:00 CDT, Duration: 30 day, Stop date: 03/13/16 9:58:00 CDTNotes: (Same as: Romazicon) Fentanyl 25 microgram, Inactive The 0.5 mL, Route: 2015 [facility] IVP, Drug form: INJ, Q5Min, Dosing Weight 96.023, kg, PRN Pain Score 4-6, Start date: 02/12/16 9:59:00 CDT, Duration: 4 doses or times, Stop date: Limited # of timesNotes: (Same as: Sublimaze) Preservative free. Hydralazine 10 mg, 0.5 mL, Inactive The Route: IVP, 2015 [facility] Drug form: INJ, Q20Min, Dosing Weight 96.023, kg, PRN Elevated BP, Start date: 02/12/16 9:59:00 CDT, Duration: 2 doses or times, Stop date: Limited # of timesNotes: (Same as: Apresoline) Push over 5 minutes Hydromorphone 0.5 mg, 0.5 Inactive The mL, Route: 2015 [facility] IVP, Drug form: INJ, Q5Min, Dosing Weight 96.023, kg, PRN Pain Score 7-10, Start date: 02/12/16 9:59:00 CDT, Duration: 4 doses or times, Stop date: Limited # of timesNotes: Same as: Dilaudid Labetalol 10 mg, 2 mL, Inactive The Route: IVP, 2015 [facility] Drug form: INJ, Q5Min, Dosing Weight 96.023, kg, PRN Elevated BP, Start date: 02/12/16 9:59:00 CDT, Duration: 5 doses or times, Stop date: Limited # of times fentaNYL (ANES) Route: IV, Inactive The Drug form: 2015 [facility] INJ, ONCE, Stop date: 02/12/16 8:40:00 CDT propofol (ANES) Route: IV, Inactive The Drug form: 2015 [facility] INJ, ONCE, Stop date: 02/12/16 8:40:00 CDT lidocaine (ANES) Route: IV, Inactive The Drug form: 2015 [facility] INJ, ONCE, Stop date: 02/12/16 8:40:00 CDT LR 1000 mL INJ Route: IV, Inactive The (ANES) Total Volume: 2015 [facility] 1,000, Start date: 02/12/16 7:55:00 CDT, Stop date: 02/12/16 8:55:00 CDT Ceftriaxone 2 gm, Route: No Longer The IVPB, [id number], Active 2015 [facility] Dosing Weight 96.023, kg, Start date: 02/11/16 13:00:00 CDT, Duration: 5 day, Stop date: 02/15/16 13:00:00 CDTNotes: (Same As: Rocephin). Use with 100 mL NS and infuse over 30 min MEDICATION WASTE Product Size: 2000 mg Product Wasted: ___ mg Dilaudid 1 mg, 1 mL, No Longer The Route: IVP, Active 2015 [facility] Drug form: INJ, Q6H, Dosing Weight 96.023, kg, PRN Pain Score 7-10, Start date: 02/11/16 8:37:00 CDT, Duration: 30 day, Stop date: 03/12/16 8:36:00 CDTNotes: Same as: Dilaudid vancomycin 750 mg, 150 No Longer The mL, Route: Active 2015 [facility] IVPB, Drug form: INJ, Q24H, Start date: 02/11/16 6:00:00 CDT, Duration: 30 day, Stop date: 03/11/16 6:00:00 CDTNotes: TIME CRITICAL MEDICATION Same as: Vancocin Infusion rate 2000 mg: infuse over 2.5 hours metoprolol 50 mg, 1 tab, No Longer The Route: PO, Active 2015 [facility] Drug form: ERTAB, Daily, Start date: 02/10/16 9:00:00 CDT, Duration: 30 day, Stop date: 03/10/16 9:00:00 CDTNotes: (Same as: Toprol XL) May split tab, but do not crush. Alprazolam 1 MG 1 mg, 1 tab, No Longer The Oral Tablet Route: PO, Active 2015 [facility] [Xanax] Drug form: TAB, Q12H, Dosing Weight 96.023, kg, PRN Anxiety, Start date: 02/10/16 8:19:00 CDT, Duration: 30 day, Stop date: 03/11/16 8:18:00 CDTNotes: With food or milk (Same as: Xanax) vancomycin 750 mg, 150 Inactive The mL, Route: 2015 [facility] IVPB, Drug form: INJ, ONCE, Start date: 02/10/16 5:00:00 CDT, Stop date: 02/10/16 5:00:00 CDTNotes: TIME CRITICAL MEDICATION Same as: Vancocin Infusion rate 2001 mg: infuse over 2.5 hours Anoro 62.5mcg/25 Anoro No Longer The mcg 62.5mcg/25 Active 2015 [facility] mcg, 1 puff, Route: INHALATION, RBID, 02/09/16 20:00:00 CDT, Duration: 30 day, Stop date: 03/10/16 8:00:00 CDT ketOROLAC 30 mg/mL 60 mg, Route: Inactive The injectable IVP, Drug 2015 [facility] solution form: INJ, ONCE, Dosing Weight 96.023, kg, Start date: 02/09/16 17:40:00 CDT, Duration: 1 doses or times, Stop date: 02/09/16 17:40:00 CDT Vancomycin Dosing Vancomycin No Longer The per RPh Dosing per Active 2015 [facility], [facility] Drug form: MISC, Route: MISC, PRN, PRN Other -See Comment, 02/09/16 14:51:00 CDT, Duration: 30 day, Stop date: 03/10/16 14:50:00 CDT Dilaudid 1 mg, 1 mL, No Longer The Route: IVP, Active 2015 [place] Drug form: INJ, Q4H, Dosing Weight 96.023, kg, PRN Pain Score 7-10, Start date: 02/09/16 13:01:00 CDT, Duration: 30 day, Stop date: 03/10/16 13:00:00 CDTNotes: Same as: Dilaudid Sodium Chloride 500 mL, 500 Inactive The 0.154 MEQ/ML ml/hr, Infuse 2015 [place] Injectable Over: 1 hr, Solution Route: IV, 500, Drug form: INJ, ONCE, Priority: STAT, Dosing Weight 96.023 kg, Start date: 02/09/16 12:59:00 CDT, Duration: 1 doses or times, Stop date: 02/09/16 12:59:00 CDT pantoprazole 40 mg, 1 tab, No Longer The Route: PO, Active 2015 [facility] Drug form: ECTAB, Before Breakfast, Dosing Weight 96.023, kg, Start date: 02/09/16 9:00:00 CDT, Stop date: 03/09/16 7:30:00 CDTNotes: Tablet should not be chewed or crushed. (Same as: Protonix) chlorhexidine 1 appl, Route: No Longer The gluconate 40 MG/ML BATHE, Active 2015 [facility] Medicated Liquid Q-M-W-F, Drug Soap form: SOAP, Start date: 02/09/16 9:00:00 CDT, Duration: 30 day, Stop date: 03/08/16 9:00:00 CDTNotes: (Same As: Milla) Simvastatin 20 mg, 1 tab, No Longer The Route: PO, Active 2015 [facility] Drug form: TAB, Bedtime, Dosing Weight 96.023, kg, Start date: 02/08/16 21:00:00 CDT, Duration: 30 day, Stop date: 03/08/16 21:00:00 CDTNotes: (Same as: Zocor) Cefuroxime 1.5 gm, Route: No Longer The IVPB, [id number], Active 2015 [facility] Dosing Weight 96.023, kg, Start date: 02/08/16 21:00:00 CDT, Duration: 3 doses or times, Stop date: 02/09/16 13:00:00 CDT Neutra-Phos 2 pkt, Route: No Longer The PO, Drug Form: Active 2015 [facility] PDR/REC, Dosing Weight 96.023, kg, PRN, PRN [...] phosphate + sodium mL, Route: Active 2015 [facility] chloride 0.9% 500 IVPB, Drug ml INJ [...] phosphate + sodium mL, Route: Active 2015 [employer] chloride 0.9% INJ IVPB, PRN, 250 mL Dosing Weight 96.023, kg, PRN Abnormal Lab Result, Start date: 02/08/16 20:04:00 CDT, Duration: 30 day, Stop date: 03/09/16 20:03:00 CDT, FOR ICU USE ONLYNotes: (Same as: K Phosphate.) 1 mMol phoshate has 1.47 mEq potassium Infuse over 4 hours Magnesium Oxide 800 mg, 2 tab, No Longer The Route: PO, Active 2015 [facility] Drug form: TAB, PRN, Dosing Weight 96.023, kg, PRN Abnormal Lab Result, FOR ICU USE ONLY, Start date: 02/08/16 20:04:00 CDT, Duration: 30 day, Stop date: 03/09/16 20:03:00 CDTNotes: (Same as: Mag-Ox 400) Magnesium oxide [id number] elemental magnesium Dose=____mg magnesium oxide (___mg elemental magnesium) Magnesium Sulfate 2 gm, 50 mL, No Longer The Route: IVPB, Active 2015 [place] Drug form: INJ, PRN, Dosing Weight 96.023, kg, PRN Abnormal Lab Result, Start date: 02/08/16 20:04:00 CDT, Duration: 30 day, Stop date: 03/09/16 20:03:00 CDT, FOR ICU USE ONLYNotes: WASTE: F/P - Sink; E - [employer] Trash Bin potassium chloride 20 mEq, 15 mL, No Longer The Route: NJ, Active 2015 [facility] Drug form: LIQ, PRN, Dosing Weight 96.023, kg, PRN Abnormal Lab Result, Start date: 02/08/16 20:04:00 CDT, Duration: 30 day, Stop date: 03/09/16 20:03:00 CDT, FOR ICU USE ONLYNotes: (Same as: Potassium Chloride) sodium phosphate + 15 mmol, 5 mL, No Longer The sodium chloride Route: IVPB, Active 2015 [place] 0.9% INJ 250 mL PRN, Dosing Weight 96.023, kg, PRN Abnormal Lab Result, Start date: 02/08/16 20:04:00 CDT, Duration: 30 day, Stop date: 03/09/16 20:03:00 CDT, FOR ICU USE ONLY sodium phosphate + 45 mmol, 15 No Longer The sodium chloride mL, Route: Active 2015 [place] 0.9% 500 ml INJ IVPB, Drug 500 mL form: INJ, PRN, Dosing Weight 96.023, kg, PRN Abnormal Lab Result, Start date: 02/08/16 20:04:00 CDT, Duration: 30 day, Stop date: 03/09/16 20:03:00 CDT, FOR ICU USE ONLY Calcium Carbonate 500 mg, 1 tab, No Longer The 500 MG Chewable Route: PO, Active 2015 [facility] Tablet Drug form: CHEWTAB, PRN, Dosing Weight 96.023, kg, PRN Abnormal Lab Result, FOR ICU USE ONLY, Start date: 02/08/16 20:04:00 CDT, Duration: 30 day, Stop date: 03/09/16 20:03:00 CDTNotes: (Same As: Tums) Calcium Carbonate 500 ea=392 mg elemental calcium Dose= mg calcium carbonate [...] The MG/ML Inhalant Route: NEB, Active 2015 [facility] Solution Drug form: SOLN, PRN, Dosing Weight 96.023, kg, PRN Respiratory Protocol, Start date: 02/08/16 20:04:00 CDT, Duration: 30 day, Stop date: 03/09/16 20:03:00 CDTNotes: SEE RT DOCUMENTATION (Same as: Proventil) Dextrose 50% 25 gm, 50 mL, No Longer The Syringe Route: IVP, Active 2015 [facility] Drug Form: INJ, Dosing Weight 96.023, kg, PRN, PRN Blood Glucose Results, Start date: 02/08/16 20:04:00 CDT, Duration: 30 day, Stop date: 03/09/16 20:03:00 CDT Docusate 100 mg, 1 cap, No Longer The Route: PO, Active 2015 [facility] Drug form: CAP, BID, Dosing Weight 96.023, kg, PRN Constipation, Start date: 02/08/16 20:04:00 CDT, Duration: 30 day, Stop date: 03/09/16 20:03:00 CDTNotes: (Same as: Colace) (Do Not Crush) Glucagon 1 mg, Route: No Longer The IM, Drug form: Active 2015 [facility] PDR/INJ, PRN, Dosing Weight 96.023, kg, PRN Blood Glucose Results, Start date: 02/08/16 20:04:00 CDT, Duration: 30 day, Stop date: 03/09/16 20:03:00 CDT Acetaminophen 325 2 tab, Route: No Longer The MG / Hydrocodone PO, Drug Form: Active 2015 [facility] Bitartrate 5 MG TAB, Dosing Oral Tablet Weight 96.023, kg, Q4H, PRN Pain Score 4-6, Start date: 02/08/16 20:04:00 CDT, Duration: 30 day, Stop date: 03/09/16 20:03:00 CDTNotes: (Same as: [place] 325/5) Do not exceed 4gm/day of acetaminophen. Acetaminophen 650 mg, 2 tab, No Longer The Route: PO, Active 2015 [facility] Drug form: TAB, Q4H, Dosing Weight 96.023, kg, PRN Pain 1-3/Temp > 100.4 F, Start date: 02/08/16 20:04:00 CDT, Duration: 30 day, Stop date: 03/09/16 20:03:00 CDTNotes: Do not exceed 4 gm/day. (Same as: Tylenol) D5W /2NS + KCL 1,000 mL, No Longer The 20mEq/L 1000ml Rate: 50 Active 2015 [facility] (Premix) 1,000 mL ml/hr, Infuse over: 20 hr, Route: IV, Dosing Weight 96.023 kg, Total Volume: 1,000, Start date: 02/08/16 20:04:00 CDT, Duration: 30 day, Stop date: 03/09/16 20:03:00 CDTNotes: PREMIX IV - Do Not Alter WASTE: F/P - Sink; E - [employer] Trash Bin Ondansetron 4 mg, 2 mL, Inactive The Route: IVP2015 [facility] Drug form: INJ, ONCE, Dosing Weight 96.023, kg, PRN Nausea & Vomiting, Start date: 02/08/16 9:59:00 CDTNotes: (Same as: Zofran) MEDICATION WASTE Product Size: 4 mg Product Wasted: ___ mg Promethazine 6.25 mg, 25 Inactive The mL, Route: 2015 [facility] IVPB, Drug form: SOLN, ONCE, Dosing Weight 96.023, kg, PRN Nausea & Vomiting, Start date: 02/08/16 9:59:00 CDT Flumazenil 0.2 mg, 2 mL, Inactive The Route: IVP, 2015 [facility] Drug form: INJ, PRN, Dosing Weight 96.023, kg, PRN Benzodiazepine Reversal, Initial dose, Start date: 02/08/16 9:59:00 CDT, Duration: 30 day, Stop date: 03/09/16 9:58:00 CDTNotes: (Same as: Romazicon) Naloxone 0.4 mg, 1 mL, Inactive The Route: IVP, 2015 [facility] Drug form: INJ, Q2MIN, Dosing Weight 96.023, kg, PRN Narcotic Reversal, Start date: 02/08/16 9:59:00 CDT, Duration: 8 doses or times, Stop date: Limited # of timesNotes: Same as Narcan Fentanyl 50 microgram, Inactive The 1 mL, Route: 2015 [facility] IVP, Drug form: INJ, Q5Min, Dosing Weight 96.023, kg, PRN Pain Score 7-10, Start date: 02/08/16 9:59:00 CDT, Duration: 2 doses or times, Stop date: Limited # of timesNotes: (Same as: Sublimaze) Preservative free. Hydromorphone 1 mg, 1 mL, Inactive The Route: IVP, 2015 [facility] Drug form: INJ, Q5Min, Dosing Weight 96.023, kg, PRN Pain Score 7-10, Start date: 02/08/16 9:59:00 CDT, Duration: 4 doses or times, Stop date: Limited # of timesNotes: Same as: Dilaudid Labetalol 10 mg, 2 mL, Inactive The Route: IVP, 2015 [facility] Drug form: INJ, Q5Min, Dosing Weight 96.023, kg, PRN Elevated BP, Start date: 02/08/16 9:59:00 CDT, Duration: 5 doses or times, Stop date: Limited # of times ondansetron (ANES) Route: IV, Inactive The Drug form: 2015 [facility] INJ, ONCE, Stop date: 02/08/16 9:40:00 CDT hydromorphone Route: IV, Inactive The (ANES) Drug form: 2015 [facility] INJ, ONCE, Stop date: 02/08/16 9:15:00 CDT LR 1000 mL INJ Route: IV, Inactive The (ANES) Total Volume: 2015 [facility] 1,000, Start date: 02/08/16 9:08:00 CDT, Stop date: 02/08/16 10:08:00 CDT heparin (ANES) Route: IV, Inactive The Drug form: 2015 [facility] INJ, ONCE, Stop date: 02/08/16 8:55:00 CDT fentaNYL (ANES) Route: IV, Inactive The Drug form: 2015 [facility] INJ, ONCE, Stop date: 02/08/16 8:40:00 CDT propofol (ANES) Route: IV, Inactive The Drug form: 2015 [facility] INJ, ONCE, Stop date: 02/08/16 8:40:00 CDT lidocaine (ANES) Route: IV, Inactive The Drug form: 2015 [facility] INJ, ONCE, Stop date: 02/08/16 8:40:00 CDT midazolam (ANES) Route: IV, Inactive The Drug form: 2015 [facility] SOLN, ONCE, Stop date: 02/08/16 8:40:00 CDT rocuronium (ANES) Route: IV, Inactive The Drug form: 2015 [facility] INJ, ONCE, Stop date: 02/08/16 8:40:00 CDT piperacillin-tazob IV, ONCE Inactive The actam (ANES) [place] famotidine (ANES) Route: IV, Inactive The Drug form: 2015 [place] INJ, ONCE, Stop date: 02/08/16 8:25:00 CDT [...] No Longer The Route: PO, Active 2015 [facility] Drug form: TAB, Q4H, PRN Pain 1-3/Temp > 100.4 F, Start date: 02/07/16 10:35:00 CDT, Duration: 30 day, Stop date: 03/08/16 10:34:00 CDTNotes: (Same as: Roxicodone) oxyCODONE 10 mg 15 mg, Route: Inactive The extended release PO, Drug form: 2015 [facility] ERTAB, Q6H, Start date: 02/05/16 18:00:00 CDT, Duration: 30 day, Stop date: 03/06/16 12:00:00 CDT Roxicodone 15 mg, 3 tab, No Longer The Route: PO, Active 2015 [facility] Drug form: TAB, Q6Hnow, Start date: 02/05/16 15:21:00 CDT, Stop date: 03/06/16 11:00:00 CDTNotes: (Same as: Roxicodone) Dilaudid 2 mg, 1 mL, No Longer The Route: IV, Active 2015 [facility] Drug form: INJ, Q2H, Dosing Weight 97.273, kg, PRN Pain Score 7-10, Start date: 02/05/16 15:04:00 CDT, Duration: 30 day, Stop date: 03/06/16 15:03:00 CDTNotes: Same as: Dilaudid sodium chloride 1,000 mL, No Longer The 0.9% 1000 ml INJ Rate: 50 Active 2015 [facility] 1,000 mL ml/hr, Infuse over: 20 hr, Route: IV, Dosing Weight 97.273 kg, Total Volume: 1,000, Start date: 02/04/16 11:14:00 CDT, Stop date: 03/05/16 11:13:00 CDT vancomycin 750 mg, 150 No Longer The mL, Route: Active 2015 [facility] IVPB, Drug form: INJ, [id number], Start date: 02/02/16 15:00:00 CDT, Duration: 30 day, Stop date: 03/03/16 3:00:00 CDTNotes: TIME CRITICAL MEDICATION Same as: Vancocin Infusion rate 2000 mg: infuse over 2.5 hours atorvastatin 40 mg, 1 tab, No Longer The Route: PO, Active 2015 [facility] Drug form: TAB, Bedtime, Dosing Weight 97.273, kg, Start date: 02/01/16 21:00:00 CDT, Duration: 30 day, Stop date: 03/01/16 21:00:00 CDTNotes: (Same as: Lipitor) Vancomycin 1 ea, Route: Inactive [facility] [place] Weight 97.273, kg, ONCALL, Start date: 02/01/16 15:00:00 CDT, Duration: 1 doses or times, Pharmacy to dose Acetaminophen 325 1 tab, Route: No Longer The MG / Hydrocodone PO, Drug Form: Active 2015 [facility] Bitartrate 10 MG TAB, Dosing Oral Tablet [[place] Weight 97.273, 10/325] kg, Q6H, PRN Pain Score 4-6, Start date: 02/01/16 13:10:00 CDT, Duration: 30 day, Stop date: 03/02/16 13:09:00 CDTNotes: Do not exceed 4gm/day of acetaminophen. (Same as: [place] 325/10) Tylenol 650 mg, 2 tab, No Longer The Route: PO, Active 2015 [facility] Drug form: TAB, Q6H, Dosing Weight 97.273, kg, PRN Pain Score 1-3, Start date: 02/01/16 13:02:00 CDT, Duration: 30 day, Stop date: 03/02/16 13:01:00 CDTNotes: Do not exceed 4 gm/day. (Same as: Tylenol) Vancomycin 1,000 mg, No Longer The Route: IVPB, Active 2015 [place] [id number], Dosing Weight 97.273, kg, Start date: 02/01/16 13:00:00 CDT, Stop date: 03/02/16 1:00:00 CDTNotes: TIME CRITICAL MEDICATION (Same As: Vancocin) Infusion rate 2001 mg: infuse over 2.5 hours MEDICATION WASTE Product Size: 1000 mg Product Wasted: ___ mg Zosyn 3.375 gm, No Longer The Route: IVPB, Active 2015 [place] [id number], Dosing Weight 97.273, kg, CrCl Notes: [...] Tartrate 100 MG Route: PO, Active 2015 [facility] Extended Release Drug form: Tablet [Toprol] ERTAB, Daily, Start date: 02/01/16 9:00:00 CDT, Duration: 30 day, Stop date: 03/01/16 9:00:00 CDTNotes: (Same as: Toprol XL) May split tab, but do not crush. Alprazolam 2 MG 2 mg, 2 tab, No Longer The Oral Tablet Route: PO, Active 2015 [place] Drug form: TAB, BID, Dosing Weight 97.273, kg, PRN Anxiety, Start date: 02/01/16 8:23:00 CDT, Duration: 30 day, Stop date: 03/02/16 8:22:00 CDTNotes: With food or milk (Same as: Xanax) Albuterol 0.833 3 ml, Route: No Longer The MG/ML / NEB, Drug Active 2015 [facility] Ipratropium Form: SOLN, [place] 0.167 Dosing Weight MG/ML Inhalant 97.273, kg, Solution PRN, PRN Respiratory Protocol, Start date: 02/01/16 8:22:00 CDT, Duration: 30 day, Stop date: 03/02/16 8:21:00 CDTNotes: (Same as: Duoneb) Zofran 4 mg, 2 mL, No Longer The Route: IVP, Active 2015 [place] Drug form: INJ, Q6H, Dosing Weight 97.273, kg, PRN Nausea, Start date: 02/01/16 1:24:00 CDT, Duration: 30 day, Stop date: 03/02/16 1:23:00 CDTNotes: (Same as: Zofran) MEDICATION WASTE Product Size: 4 mg Product Wasted: ___ mg Dilaudid 2 mg, 2 mL, No Longer The Route: IVP, Active 2015 [place] Drug form: INJ, Q4H, Dosing Weight 97.273, kg, PRN Pain Score 7-10, Start date: 02/01/16 1:23:00 CDT, Duration: 30 day, Stop date: 03/02/16 1:22:00 CDTNotes: Same as: Dilaudid Acetaminophen 300 1 tab, PO, No Longer The MG / Codeine BID, PRN pain, Active 2015 [place] Phosphate 30 MG # 28 tab, 0 Oral Tablet Refill(s) lisinopril 10 mg 10 mg=1 tab, Active The oral tablet PO, Daily, # 2015 [place] 30 tab, 0 Refill(s) metoprolol 100 mg=1 tab, Active The tartrate 100 mg PO, BID, # 60 2015 [place] oral tablet tab, 0 Refill(s) Centrum Adults 1 tab, PO, Active The oral tablet Daily, 0 2015 [place] Refill(s) doxazosin 1 mg 1 mg=1 tab, Active The oral tablet PO, Daily, # 2015 [place] 30 tab, 0 Refill(s) atorvastatin 40 mg 40 mg=1 tab, Active The oral tablet PO, Bedtime, # 2015 [place] 30 tab, 0 Refill(s) Anoro Ellipta 62.5 1 puff, Active The mcg-25 mcg INHALER, 2015 [place] inhalation powder Daily, # 1 ea, 3 Refill(s) Alprazolam 2 MG 2 mg=1 tab, Active The Oral Tablet PO, BID, PRN 2015 [place] Anxiety, # 20 tab, 0 Refill(s) Furosemide 20 MG 20 mg=1 tab, Active The Oral Tablet PO, Daily, # 2015 [place] 30 tab, 0 Refill(s) cilostazol 100 mg 100 mg=1 tab, Active The oral tablet PO, BID, # 60 2015 [place] tab, 0 Refill(s) Acetaminophen 650 mg, Route: Inactive The PO, Drug form: 2015 [place] TAB, ONCE, Dosing Weight 95, kg, Priority: STAT, Start date: 01/31/16 22:28:00 CDT, Stop date: 01/31/16 22:28:00 CDT Piperacillin / 3.375 gm, Inactive The tazobactam Route: IVPB, 2015 [place] ONCE, Dosing Weight 95, kg, Priority: STAT, Start date: 01/31/16 17:57:00 CDT, Stop date: 01/31/16 17:57:00 CDTNotes: (Same as: Zosyn) Dosing based on Piperacillin component MEDICATION WASTE Product Size: 3375 mg Product Wasted: ___ mg Vancomycin 1,000 mg, Inactive The Route: IVPB, 2015 [place] ONCE, Dosing Weight 95, kg, Priority: STAT, Start date: 01/31/16 17:57:00 CDT, Stop date: 01/31/16 17:57:00 CDT, TIME CRITICAL MEDICATIONNote s: TIME CRITICAL MEDICATION (Same As: Vancocin) Infusion rate 2001 mg: infuse over 2.5 hours MEDICATION WASTE Product Size: 1000 mg Product Wasted: ___ mg Sodium Chloride 1,000 mL, Inactive The 0.154 MEQ/ML 2,000 ml/hr, 2015 [place] Injectable Infuse Over: Solution 30 minutes, Route: IV, 1,000, Drug form: INJ, ONCE, Priority: STAT, Dosing Weight 95 kg, Start date: 01/31/16 17:04:00 CDT, Duration: 1 doses or times, Stop date: 01/31/16 17:04:00 CDT Acetaminophen 325 1 tab, Route: Inactive The MG / Hydrocodone PO, Drug Form: 2015 [place] Bitartrate 10 MG TAB, Dosing Oral Tablet [[place] Weight 95, kg, 10/325] ONCE, STAT, Start date: 01/31/16 16:57:00 CDT, Stop date: 01/31/16 16:57:00 CDTNotes: Do not exceed 4gm/day of acetaminophen. (Same as: [place] 325/10) Amlodipine 10 mg, PO, Active The Daily, 0 2015 [place] Refill(s) gabapentin 300 mg, PO, Active The BID, 0 2015 [place] Refill(s) atorvastatin 20 mg, 1 tab, Inactive The Route: PO, 2014 [place] Drug form: TAB, Bedtime, Dosing Weight 98.267, kg, Start date: 02/16/15 21:00:00, Duration: 30 day, Stop date: 03/17/15 21:00:00Notes: (Same As: Lipitor) lovastatin 20 mg 20 mg=1 tab, Active The oral tablet PO, Bedtime, # [place] 30 tab, 0 Refill(s), given to patient Hydrochlorothiazid 1 tab, Route: No Longer The e 12.5 MG / PO, Drug Form: Active 2014 [place] Lisinopril 20 MG TAB, Dosing Oral Tablet Weight 98.267, kg, Daily, Start date: 02/16/15 9:00:00, Duration: 30 day, Stop date: 03/17/15 9:00:00 Prinivil 20 mg, 1 tab, Inactive The Route: PO, 2014 [place] Drug form: TAB, Daily, Start date: 02/16/15 9:00:00, Duration: 30 day, Stop date: 03/17/15 9:00:00Notes: (Same as: Prinivil, Zestril) metoprolol 25 mg, 1 tab, Inactive The tartrate Route: PO, 2014 [place] Drug form: TAB, Q12H, Dosing Weight 98.267, kg, Start date: 02/16/15 9:00:00, Duration: 30 day, Stop date: 03/17/15 21:00:00Notes: (Same as: Lopressor) Microzide 12.5 mg, 1 Inactive The tab, Route: 2014 [place] PO, Drug form: TAB, Daily, Start date: 02/16/15 9:00:00, Duration: 30 day, Stop date: 03/17/15 9:00:00Notes: (Same as: Hydrodiuril). Give with food. pneumococcal 0.5 mL, Route: Inactive The capsular IM, Drug Form: 2014 [place] polysaccharide INJ, Daily, type 1 vaccine / [...] The Oral Tablet tab, Route: Active 2014 [place] [Xanax] PO, Drug form: TAB, BID, Dosing Weight 98.267, kg, PRN Anxiety, Start date: 02/15/15 23:39:00, Duration: 30 day, Stop date: 03/17/15 23:38:00Notes: With food or milk (Same as: Xanax) Acetaminophen 325 1 tab, Route: No Longer The MG / Hydrocodone PO, Drug Form: Active 2014 [place] Bitartrate 5 MG TAB, Dosing Oral Tablet [[place] Weight 98.267, 5/325] kg, Q12H, PRN Pain 1-3/Temp > 100.4 F, Start date: 02/15/15 23:39:00, Duration: 30 day, Stop date: 03/17/15 23:38:00Notes: (Same as: [place] 325/5) Do not exceed 4gm/day of acetaminophen. Tessalon Perles 200 mg, 2 cap, No Longer The Route: PO, Active 2014 [place] Drug form: CAP, TID, Dosing Weight 13.636, kg, Start date: 02/15/15 20:00:00, Duration: 30 day, Stop date: 03/17/15 17:00:00Notes: (Same As: Tessalon Perles) "Do Not Crush" Acetaminophen 325 1 tab, PO, Active The MG / Hydrocodone Q12H, PRN 2014 [place] Bitartrate 5 MG Pain, # 30 Oral Tablet [[place] tab, 0 5/325] Refill(s) Alprazolam 0.25 MG 0.25 mg=1 tab, Active The Oral Tablet PO, BID, PRN 2014 [place] [Xanax] Anxiety, Stress, # 20 tab, 0 Refill(s) metoprolol 25 mg, PO, Active The tartrate BID, 0 2014 [place] Refill(s) NS 1,000 mL 1,000 mL, No Longer The Rate: 75 Active 2014 [place] ml/hr, Infuse over: 13.3 hr, Route: IV, Dosing Weight 13.636 kg, Total Volume: 1,000, Start date: 02/15/15 18:04:00, Duration: 30 day, Stop date: 03/17/15 18:03:00 Xopenex 0.63 mg, 3 mL, No Longer The Route: NEB, Active 2014 [place] Drug form: SOLN, PRN, Dosing Weight 13.636, kg, PRN Respiratory Protocol, Start date: 02/15/15 18:03:00, Duration: 30 day, Stop date: 03/17/15 18:02:00Notes: SEE RT DOCUMENTATION (Same as:Xopenex) Non-Formulary Acetaminophen 325 2 tab, Route: No Longer The MG / Hydrocodone PO, Drug Form: Active 2014 [place] Bitartrate 10 MG TAB, Dosing Oral Tablet [[place] Weight 13.636, 10/325] kg, Q4H, PRN Pain Score 4-6, Start date: 02/15/15 18:03:00, Duration: 30 day, Stop date: 03/17/15 18:02:00Notes: Do not exceed 4gm/day of acetaminophen. (Same as: [place] 325/10) Albuterol 0.833 3 ml, Route: No Longer The MG/ML / NEB, Drug Active 2014 [place] Ipratropium Form: SOLN, [place] 0.167 Dosing Weight MG/ML Inhalant 13.636, kg, Solution [DuoNeb] PRN, PRN Respiratory Protocol, Start date: 02/15/15 15:51:00, Duration: 30 day, Stop date: 03/17/15 15:50:00Notes: (Same as: Duoneb) Aspirin 324 mg, 4 tab, Inactive The Route: CHEW, 2014 [place] Drug form: CHEWTAB, ONCE, Dosing Weight 13.636, kg, Priority: STAT, Start date: 02/15/15 15:00:00, Stop date: 02/15/15 15:00:00Notes: Take with food. tramadol 100 mg=2 tab, Active The hydrochloride 50 PO, Q6H, PRN 2014 [place] MG Oral Tablet pain, X 3 day, [Ultram] # 20 tab, 0 Refill(s) Tylenol 650 mg, 2 tab, Inactive The Route: PO, 2014 [place] Drug form: TAB, ONCE, Dosing Weight 108.182, kg, Pediatric Dosing, Priority: STAT, Start date: 02/09/15 15:47:00, Stop date: 02/09/15 15:47:00Notes: Do not exceed 4 gm/day. (Same as: Tylenol) Sodium Chloride 1,000 mL, Inactive The 0.154 MEQ/ML 1,000 ml/hr, 2014 [place] Injectable Infuse Over: 1 Solution hr, Route: IV, 1,000, Drug form: INJ, ONCE, Priority: STAT, Dosing Weight 104.545 kg, Start date: 01/23/15 14:39:00, Duration: 1 doses or times, Stop date: 01/23/15 14:39:00 Saline Flush 0.9% 10 mL, Route: Inactive The IVP, Drug 2014 [place] Form: INJ, Dosing Weight 104.545, kg, PRN, PRN Line Flush, Start date: 01/23/15 14:39:00, Duration: 30 day, Stop date: 02/22/15 14:38:00Notes: preservative free. Allergies, Adverse Reactions, Alerts Substance Category Reaction Severity Reaction Status Date Comments Source type Reported morphine Assertion Drug Active The allergy [facility] Immunizations Immunization Date Site Status Last Updated Comments Source Given pneumococcal Right completed Ashok The 23-valent 5 deltoid [place] vaccine Results Order Name Results Value Reference Date Interpretation Comments Source Range BLOOD BANK RBC product Product available 04/04 The RESULTS (04/04/16 11:22 AM) /2015 [facility] BLOOD BANK ABO/Rh B POS 04/04 The RESULTS /2015 [place] BLOOD BANK Antibody Negative 04/04 The RESULTS Scrn (04/04/16 11:20 AM) [place] URINE AND UA <=1.0 0.1 - 1.0 03/14 The STOOL Urobilinogen mg/dL /2015 [place] URINE AND UA RBC 1 0 - 2 03/14 The STOOL /2015 [place] URINE AND UA WBC 3 0 - 5 03/14 The STOOL /2015 [place] URINE AND UA Sq Epi Few /LPF Few /LPF 03/14 The STOOL /2015 [place] URINE AND UA Mucus Few /LPF None Seen 03/14 The STOOL /LPF /2015 [place] URINE AND UA Leuk Est Negative Negative 03/14 The STOOL (03/14/16 2:08 AM) /2015 [place] URINE AND UA Protein Negative Negative 03/14 The STOOL mg/dL mg/dL /2015 [place] URINE AND UA pH 5.0 5.0 - 8.0 03/14 The STOOL /2015 [place] URINE AND UA Spec Grav 1.009 <=1.030 03/14 The STOOL /2015 [place] URINE AND UA Turbidity Clear Clear 03/14 The STOOL (03/14/16 2:08 AM) /2015 [place] URINE AND UA Ketones Negative Negative 03/14 The STOOL mg/dL mg/dL /2015 [place] URINE AND UA Glucose Negative Negative 03/14 The STOOL mg/dL mg/dL /2015 [place] URINE AND UA Color Yellow Yellow 03/14 The STOOL *NA* /2015 [place] (03/14/16 2:08 AM) URINE AND UA Nitrite Negative Negative 03/14 The STOOL (03/14/16 2:08 AM) /2015 [place] URINE AND UA Blood Negative Negative 03/14 The STOOL (03/14/16 2:08 AM) /2015 [facility] URINE AND UA Bili Negative Negative 03/14 The STOOL *NA* /2015 [place] (03/14/16 2:08 AM) CHEM PANEL Lactic Acid 0.8 0.5 - 2.2 03/14 The Lvl /2015 [place] CHEM PANEL Procalcitoni <0.05 0.00 - 03/14 The n Lvl ng/mL 0. [place] BLOOD BANK Antibody Negative 03/14 The RESULTS Scrn (03/13/16 9:07 PM) /2015 [place] BLOOD BANK ABO/Rh B POS 03/14 The RESULTS [facility] CHEM PANEL eGFR 43 03/14 Result MH Comment: [place] eGFR is calculated using the CKD-EPI formula. [...] 21 7 - 22 10 MH The [facility] CHEM PANEL Creatinine 1.79 0.50 - 10 MH The Lvl 1.40 [facility] CHEM PANEL Alk Phos 95 39 - 136 10 MH The [place] CHEM PANEL Bili Total 0.3 0.2 - 1.3 03/14 MH The [place] CHEM PANEL AST 39 0 - 37 10 MH The [place] CHEM PANEL ALT 59 0 - 65 10 MH The [place] CHEM PANEL Sodium Lvl 139 135 - 145 10 MH The [place] CHEM PANEL Total 7.8 6.4 - 8.4 10 MH The Protein [facility] CHEM PANEL Albumin Lvl 2.5 3.5 - 5.0 10 MH The [place] CHEM PANEL Glucose Lvl 120 70 - 99 10 MH The [place] CHEM PANEL Chloride Lvl 106 95 - 109 10/ MH The [employer] CHEM PANEL CO2 21 24 - 32 10/18 MH The [place] CHEM PANEL Calcium Lvl 10.1 8.5 - 10.5 10/18 MH The [place] CHEM PANEL Potassium 3.3 3.5 - 5.1 10/18 MH The Lvl [place] CHEM PANEL A/G Ratio 0.5 0.7 - 1.6 10/18 MH The [place] CHEM PANEL Globulin 5.3 2.7 - 4.2 10/18 MH The [employer] CHEM PANEL B/C Ratio 12 6 - 25 10 MH The [place] CHEM PANEL AGAP 15.3 10.0 - 03/14 MH The 20.0 [facility] HEMATOLOGY MPV 7.4 7.4 - 10.4 10 MH The [place] HEMATOLOGY WBC 7.3 3.7 - 10.4 10 MH The [place] HEMATOLOGY MCV 88.5 80.0 - 03/14 MH The 94.0 [place] HEMATOLOGY RBC 3.00 4.70 - 03/14 MH The 6.10 [place] HEMATOLOGY Hct 26.5 42.0 - 10 MH The 54.0 [place] HEMATOLOGY Hgb 8.8 14.0 - 03/14 MH The 18.0 [place] HEMATOLOGY MCHC 33.1 32.0 - 03/14 MH The 36.0 [place] HEMATOLOGY MCH 29.3 27.0 - 03/14 MH The 31.0 [place] HEMATOLOGY Platelet 241 133 - 450 03/14 MH The [place] HEMATOLOGY RDW 15.5 11.5 - 03/14 MH The 14.5 [place] HEMATOLOGY Basophils # 0.1 0.0 - 0.2 10 MH The [place] HEMATOLOGY Lymphocytes 14.3 20.0 - 03/14 MH The 40.0 [place] HEMATOLOGY Eosinophils 1.9 0.0 - 4.0 10 MH The [place] HEMATOLOGY Segs 77.1 45.0 - 03/14 MH The 75.0 [place] HEMATOLOGY Monocytes 5.3 2.0 - 12.0 03/14 MH The [place] HEMATOLOGY Basophils 1.4 0.0 - 1.0 10 MH The [place] HEMATOLOGY Segs-Bands # 5.6 1.5 - 8.1 10 MH The [place] HEMATOLOGY Lymphocytes 1.0 1.0 - 5.5 10 MH The # [place] HEMATOLOGY Monocytes # 0.4 0.0 - 0.8 03/14 MH The [place] HEMATOLOGY Eosinophils 0.1 0.0 - 0.5 03/14 MH The # [place] ANEMIA UIBC 174 110 - 370 02/15 MH The STUDY /2015 [place] ANEMIA TIBC 196 228 - 428 02/15 MH The STUDY /2015 [place] ANEMIA Iron 22 45 - 160 02/15 The [place] ANEMIA % Satur Fe 11 12 - 57 02/15 The [place] CHEM PANEL eGFR 57 02/14 Result The Comment: [place] eGFR is calculated using the CKD-EPI formula. [...] AGAP 14.7 10.0 - 02/14 The .0 [place] CHEM PANEL Calcium Lvl 8.7 8.5 - 10.5 02/14 The [place] CHEM PANEL CO2 24 24 - 32 02/14 The [place] CHEM PANEL Chloride Lvl 99 95 - 109 02/14 MH The [place] CHEM PANEL Potassium 3.7 3.5 - 5.1 02/14 The [place] CHEM PANEL BUN 16 7 - 22 02/14 The [place] CHEM PANEL Glucose Lvl 128 70 - 99 02/14 The [place] CHEM PANEL Sodium Lvl 134 135 - 145 02/14 The [facility] CHEM PANEL Creatinine 1.42 0.50 - 02/14 MH The Lvl 1.40 [facility] CHEM PANEL eGFR 51 02/13 Result Comment: [place] eGFR is calculated using the CKD-EPI formula. [...] 0.2 - 1.3 02/13 Result The Comment: [facility] reviewed all results 02/14/2016 06:35 [facility] CHEM PANEL ALT 25 0 - 65 02/13 The [employer] CHEM PANEL AST 15 0 - 37 02/13 The [employer] CHEM PANEL Alk Phos 62 39 - 136 02/13 The [employer] CHEM PANEL Globulin 4.8 2.7 - 4.2 02/13 The [employer] CHEM PANEL A/G Ratio 0.5 0.7 - 1.6 02/13 The [employer] CHEM PANEL Calcium Lvl 9.0 8.5 - 10.5 02/13 The [employer] CHEM PANEL Glucose Lvl 109 70 - 99 02/13 The [employer] CHEM PANEL CO2 24 24 - 32 02/13 The [employer] CHEM PANEL Chloride Lvl 101 95 - 109 02/13 The [facility] CHEM PANEL BUN 17 7 - 22 02/13 The [place] CHEM PANEL Potassium 4.1 3.5 - 5.1 02/13 The Lvl [employer] CHEM PANEL AGAP 14.1 10.0 - 02/13 The 20.0 [employer] CHEM PANEL Albumin Lvl 2.3 3.5 - 5.0 02/13 The [employer] CHEM PANEL Total 7.1 6.4 - 8.4 02/13 The Protein [employer] CHEM PANEL Creatinine 1.55 0.50 - 02/13 The Lvl 1.40 [employer] CHEM PANEL Sodium Lvl 135 135 - 145 02/13 The [employer] CHEM PANEL B/C Ratio 11 6 - 25 02/13 The /2015 [place] HEMATOLOGY MPV 7.7 7.4 - 10.4 09 The /2015 [place] HEMATOLOGY Hct 25.4 42.0 - 02/13 MH The 54.0 /2015 [place] HEMATOLOGY MCH 32.7 27.0 - 02/13 MH The 31.0 [facility] HEMATOLOGY MCV 96.6 80.0 - 02/13 MH The 94.0 [facility] HEMATOLOGY Platelet 296 133 - 450 02/13 The [facility] HEMATOLOGY RDW 14.7 11.5 - 02/13 The 14.5 [facility] HEMATOLOGY MCHC 33.8 32.0 - 02/13 MH The 36.0 [place] HEMATOLOGY WBC 8.4 3.7 - 10.4 02/13 The [facility] HEMATOLOGY Hgb 8.6 14.0 - 02/13 MH The 18.0 [place] HEMATOLOGY RBC 2.63 4.70 - 02/13 MH The 6.10 [place] HEMATOLOGY Lymphocytes 1.5 1.0 - 5.5 02/13 MH The # [place] HEMATOLOGY Eosinophils 0.2 0.0 - 0.5 02/13 MH The # [place] HEMATOLOGY Monocytes # 0.8 0.0 - 0.8 02/13 MH The [place] HEMATOLOGY Basophils # 0.1 0.0 - 0.2 02/13 MH The [place] HEMATOLOGY Monocytes 9.9 2.0 - 12.0 02/13 MH The [place] HEMATOLOGY Lymphocytes 17.2 20.0 - 02/13 MH The 40.0 [place] HEMATOLOGY Segs 69.8 45.0 - 02/13 MH The 75.0 [place] HEMATOLOGY Eosinophils 2.2 0.0 - 4.0 02/13 MH The [facility] HEMATOLOGY Segs-Bands # 5.9 1.5 - 8.1 02/13 MH The [place] HEMATOLOGY Basophils 0.9 0.0 - 1.0 02/13 MH The [facility] TOXICOLOGY Vanco Tr 14.8 02/13 MH The [facility] TOXICOLOGY Vanco Tr TND TBD 02/13 MH The [facility] CHEM PANEL Total 6.3 6.4 - 8.4 02/12 MH The Protein [facility] CHEM PANEL A/G Ratio 0.7 0.7 - 1.6 09/18 MH The [facility] CHEM PANEL B/C Ratio 12 6 - 25 09/18 MH The [facility] CHEM PANEL Globulin 3.8 2.7 - 4.2 09/18 MH The [facility] CHEM PANEL AST 12 0 - 37 /18 MH The [facility] CHEM PANEL Alk Phos 61 39 - 136 /18 MH The [facility] CHEM PANEL Albumin Lvl 2.5 3.5 - 5.0 09/18 MH The [facility] CHEM PANEL ALT 26 0 - 65 09/18 MH The [facility] CHEM PANEL Bili Total 0.4 0.2 - 1.3 09/18 MH The [facility] CHEM PANEL AGAP 13.5 10.0 - 0918 MH The 20.0 [facility] CHEM PANEL eGFR 57 /18 Result MH The Comment: [place] eGFR is calculated using the CKD-EPI formula. [...] 27 24 - 32 09/18 MH The [facility] CHEM PANEL Calcium Lvl 8.7 8.5 - 10.5 /18 MH The [facility] CHEM PANEL Chloride Lvl 100 95 - 109 /18 MH The [facility] CHEM PANEL Potassium 4.5 3.5 - 5.1 18 MH The Lvl /2015 [facility] CHEM PANEL Creatinine 1.42 0.50 - 0918 MH The Lvl 1.40 /2015 [facility] CHEM PANEL Sodium Lvl 136 135 - 145 09/18 MH The [place] CHEM PANEL Glucose Lvl 105 70 - 99 02/12 The [facility] CHEM PANEL BUN 17 7 - 22 02/12 The [facility] TOXICOLOGY Vanco Tr TND TBD 02/12 The [facility] TOXICOLOGY Vanco Tr 9.3 02/12 The [facility] CHEM PANEL Phosphorus 4.9 2.5 - 4.5 02/11 The [facility] CHEM PANEL Magnesium 1.8 1.8 - 2.4 02/11 The Lvl /2015 [place] HEMATOLOGY Segs 70.5 45.0 - 02/11 The 75.0 [place] HEMATOLOGY Lymphocytes 18.0 20.0 - 02/11 The 40.0 [place] HEMATOLOGY Monocytes 9.7 2.0 - 12.0 02/11 The [facility] HEMATOLOGY Segs-Bands # 6.4 1.5 - 8.1 02/11 The [facility] HEMATOLOGY Lymphocytes 1.6 1.0 - 5.5 02/11 The # [place] HEMATOLOGY Basophils 0.5 0.0 - 1.0 02/11 The [facility] HEMATOLOGY Eosinophils 1.3 0.0 - 4.0 02/11 The [place] HEMATOLOGY Monocytes # 0.9 0.0 - 0.8 02/11 The [facility] HEMATOLOGY Eosinophils 0.1 0.0 - 0.5 02/11 The # [place] HEMATOLOGY Platelet 307 133 - 450 02/11 The [facility] HEMATOLOGY MPV 6.9 7.4 - 10.4 02/11 The [facility] HEMATOLOGY MCHC 33.9 32.0 - 02/11 The 36.0 [facility] HEMATOLOGY RDW 15.1 11.5 - 02/11 The 14.5 /2015 [facility] HEMATOLOGY RBC 2.69 4.70 - 02/11 The 6.10 [facility] HEMATOLOGY MCV 96.5 80.0 - 02/11 The 94.0 [facility] HEMATOLOGY WBC 9.1 3.7 - 10.4 02/11 The [facility] HEMATOLOGY Hgb 8.8 14.0 - 02/11 The 18.0 [facility] HEMATOLOGY Hct 26.0 42.0 - 02/11 The 54.0 /2015 [facility] HEMATOLOGY MCH 32.7 27.0 - 02/11 The 31.0 [facility] HEMATOLOGY Segs-Bands # 7.7 1.5 - 8.1 02/11 The [facility] HEMATOLOGY Basophils 1.5 0.0 - 1.0 09 The [facility] HEMATOLOGY Basophils # 0.2 0.0 - 0.2 02/11 The [facility] HEMATOLOGY Eosinophils 0.2 0.0 - 0.5 02/11 The # [place] HEMATOLOGY Monocytes # 1.2 0.0 - 0.8 02/11 The [facility] HEMATOLOGY Segs 69.4 45.0 - 02/11 The 75.0 [facility] HEMATOLOGY Monocytes 10.5 2.0 - 12.0 02/11 The [facility] HEMATOLOGY Eosinophils 1.6 0.0 - 4.0 02/11 The [facility] HEMATOLOGY Lymphocytes 1.9 1.0 - 5.5 02/11 The # [place] HEMATOLOGY Lymphocytes 17.0 20.0 - 02/11 The 40.0 [facility] HEMATOLOGY Hct 28.9 42.0 - 02/11 The 54.0 [facility] HEMATOLOGY MCHC 33.6 32.0 - 02/11 The 36.0 [facility] HEMATOLOGY RDW 14.6 11.5 - 02/11 The 14.5 [facility] HEMATOLOGY MCV 96.6 80.0 - 02/11 The 94.0 /2015 [facility] HEMATOLOGY MCH 32.4 27.0 - 02/11 The 31.0 [facility] HEMATOLOGY Hgb 9.7 14.0 - 02/11 The 18.0 [facility] HEMATOLOGY WBC 11.1 3.7 - 10.4 02/11 The /2015 [facility] HEMATOLOGY RBC 2.99 4.70 - 02/11 The 6.10 [facility] HEMATOLOGY Platelet 360 133 - 450 02/11 The [facility] HEMATOLOGY MPV 7.4 7.4 - 10.4 02/11 The [facility] TOXICOLOGY Vanco Tr 10.9 02/10 The [facility] TOXICOLOGY Vanco Tr TND TBD 02/10 The [facility] HEMATOLOGY Basophils # 0.1 0.0 - 0.2 02/09 [facility] TOXICOLOGY Vanco Lvl 14.1 02/09 The [facility] HEMATOLOGY Sed Rate >100 0 - 15 02/08 The [facility] BLOOD BANK Antibody Negative 02/07 The RESULTS Scrn (02/08/16 5:38 AM) [facility] BLOOD BANK ABO/Rh B POS 02/07 The RESULTS [facility] CHEM PANEL Procalcitoni 0.11 0.00 - 02/07 The n Lvl 0.10 [facility] URINE AND UA Sq Epi None Seen 02/04 The STOOL /2015 [facility] URINE AND UA <=1.0 0.1 - 1.0 02/04 The STOOL Urobilinogen mg/dL [facility] URINE AND UA Leuk Est Negative Negative 02/04 The STOOL (02/05/16 12:36 AM) /2015 [facility] URINE AND UA Bacteria Occasional None Seen 02/04 The STOOL /HPF /HPF [facility] URINE AND UA WBC 1 0 - 5 02/04 The STOOL /2015 [facility] URINE AND UA Blood Negative Negative 02/04 The STOOL (02/05/16 12:36 AM) /2015 [facility] URINE AND UA Bili Negative Negative 02/04 The STOOL *NA* /2015 [facility] (02/05/16 12:36 AM) URINE AND UA Nitrite Negative Negative 02/04 The STOOL (02/05/16 12:36 AM) [facility] URINE AND UA Glucose Negative Negative 02/04 The STOOL mg/dL mg/dL [facility] URINE AND UA Protein Negative Negative 02/04 The STOOL mg/dL mg/dL [facility] URINE AND UA Turbidity Clear Clear 02/04 The STOOL (02/05/16 12:36 AM) /2015 [facility] URINE AND UA pH 6.0 5.0 - 8.0 02/04 The STOOL /2015 [facility] URINE AND UA Color Light Yellow Yellow 02/04 The STOOL *NA* /2015 [facility] (02/05/16 12:36 AM) URINE AND UA Ketones Negative Negative 02/04 The STOOL mg/dL mg/dL [facility] URINE AND UA Spec Grav 1.006 <=1.030 02/04 The STOOL [facility] URINE AND UA Sq Epi None Seen 09/06 MH The STOOL /2015 [facility] URINE AND UA <=1.0 0.1 - 1.0 01/31 MH The STOOL Urobilinogen mg/dL [facility] URINE AND UA Blood Negative Negative 01/31 The STOOL (02/01/16 4:31 PM) /2015 [facility] URINE AND UA Nitrite Negative Negative 01/31 The STOOL (02/01/16 4:31 PM) /2015 [facility] URINE AND UA Leuk Est Negative Negative 01/31 The STOOL (02/01/16 4:31 PM) /2015 [facility] URINE AND UA WBC 1 0 - 5 01/31 MH The STOOL /2015 [facility] URINE AND UA Hyal Cast 3 0 - 2 01/31 MH The STOOL /2015 [facility] URINE AND UA pH 5.5 5.0 - 8.0 01/31 The STOOL /2015 [facility] URINE AND UA Glucose Negative Negative 01/31 The STOOL mg/dL mg/dL [facility] URINE AND UA Ketones Negative Negative 01/31 The STOOL mg/dL mg/dL [facility] URINE AND UA Bili Negative Negative 01/31 The STOOL *NA* /2015 [facility] (02/01/16 4:31 PM) URINE AND UA Protein Negative Negative 01/31 The STOOL mg/dL mg/dL [facility] URINE AND UA Color Yellow Yellow 01/31 The STOOL *NA* /2015 [facility] (02/01/16 4:31 PM) URINE AND UA Turbidity Clear Clear 01/31 The STOOL (02/01/16 4:31 PM) [facility] URINE AND UA Spec Grav 1.007 <=1.030 01/31 The STOOL [place] URINE CHEM U Chloride 41 01/31 The [facility] URINE CHEM U Creatinine 70.40 01/31 [facility] URINE CHEM U Sodium 38 01/31 The [facility] CARDIAC Troponin-I <0.02 0.00 - 01/30 The ENZYMES 0.40 [place] CHEM PANEL Procalcitoni 0.13 0.00 - 01/30 The n Lvl 0.10 [facility] CHEM PANEL Lactic Acid 1.7 0.5 - 2.2 09 The Lvl [place] CHEM PANEL Bili Total 0.4 0.2 - 1.3 09/05 [facility] The [place] CHEM PANEL Total 7.7 6.4 - 8.4 09 The Protein [place] CHEM PANEL AST 19 0 - 37 09 [facility] The [place] CHEM PANEL ALT 23 0 - 65 09 The [place] CHEM PANEL Alk Phos 58 39 - 136 09 MH The [place] CHEM PANEL Albumin Lvl 2.8 3.5 - 5.0 09/ The [facility] CHEM PANEL A/G Ratio 0.6 0.7 - 1.6 09/05 The [place] CHEM PANEL Globulin 4.9 2.7 - 4.2 09 The [place] CHEM PANEL B/C Ratio 15 6 - 25 09 The [place] HEMATOLOGY PTT 42.4 22.9 - 01/30 The 35.8 [place] HEMATOLOGY PT 14.6 12.0 - 01/30 MH The 14.7 [place] HEMATOLOGY INR 1.11 0.85 - 01/30 The 1.17 [place] LIPIDS VLDL 77 02/16 The [place] LIPIDS HDL 29 >=61 mg/dL 02/16 The [place] LIPIDS Chol 222 <=199 02/16 MH The mg/dL [place] LIPIDS CHD Risk 7.66 4.00 - 02/16 MH The 7.30 [place] LIPIDS Trig 384 <=149 02/16 MH The mg/dL [place] LIPIDS LDL 116 <=99 mg/dL 02/16 The (Calculated) [place] CARDIAC CK MB Index 0.8 0.0 - 2.5 02/16 MH The ENZYMES [place] CARDIAC CK MB 0.6 0.5 - 3.6 02/16 MH The ENZYMES [place] CARDIAC Troponin-I <0.02 0.00 - 02/16 MH The ENZYMES 0.40 [place] CARDIAC Total CK 76 12 - 191 02/16 MH The ENZYMES [place] CARDIAC Troponin-I <0.02 0.00 - 02/16 MH The ENZYMES 0.40 [place] CARDIAC Total CK 89 12 - 191 02/16 MH The ENZYMES [place] CARDIAC CK MB Index 1.0 0.0 - 2.5 02/16 MH The ENZYMES [place] CARDIAC CK MB 0.9 0.5 - 3.6 02/16 MH The ENZYMES /2014 [place] THYROID TSH 2.000 0.360 - 02/16 MH The PANEL 3.740 /2014 [place] CARDIAC CK MB Index 0.8 0.0 - 2.5 02/15 MH The ENZYMES [place] CARDIAC Troponin-I <0.02 0.00 - 02/15 MH The ENZYMES 0.40 /2014 [place] CARDIAC Total CK 111 12 - 191 02/15 MH The ENZYMES [place] CARDIAC CK MB 0.9 0.5 - 3.6 02/15 MH The ENZYMES /2014 [place] CHEM PANEL eGFR 70 02/15 [facility] Comment: [place] eGFR is calculated using the CKD-EPI formula. [...] 87 39 - 136 02/15 [facility] The [place] CHEM PANEL AST 23 0 - 37 02/15 The [place] CHEM PANEL ALT 27 0 - 65 02/15 [facility] The [place] CHEM PANEL Albumin Lvl 3.4 3.5 - 5.0 02/15 The [place] CHEM PANEL Total 7.7 6.4 - 8.4 02/15 The Protein [place] CHEM PANEL A/G Ratio 0.8 0.7 - 1.6 02/15 The [place] CHEM PANEL Globulin 4.3 2.0 - 4.0 02/15 The [place] CHEM PANEL B/C Ratio 6 6 - 25 02/15 The [place] CHEM PANEL AGAP 11.8 10.0 - 02/15 The 20.0 [place] CHEM PANEL Bili Total 0.4 0.2 - 1.3 02/15 The [place] CHEM PANEL Calcium Lvl 9.2 8.5 - 10.5 02/15 The [place] CHEM PANEL CO2 25 24 - 32 02/15 The [place] CHEM PANEL Glucose Lvl 88 70 - 99 02/15 The [place] CHEM PANEL Chloride Lvl 106 95 - 109 02/15 The [place] CHEM PANEL Potassium 4.8 3.5 - 5.1 02/15 The [place] CHEM PANEL Sodium Lvl 138 135 - 145 02/15 The [place] CHEM PANEL Creatinine 1.2 0.5 - 1.4 02/15 The [place] CHEM PANEL BUN 7 7 - 22 02/15 The [place] CHEM PANEL Magnesium 2.0 1.8 - 2.4 02/15 The [place] HEMATOLOGY Eosinophils 0.4 0.0 - 0.5 02/15 The # [place] HEMATOLOGY Basophils # 0.0 0.0 - 0.2 02/15 The [place] HEMATOLOGY Segs-Bands # 4.6 1.5 - 8.1 02/15 The [place] HEMATOLOGY Monocytes # 0.8 0.0 - 0.8 02/15 The [place] HEMATOLOGY Monocytes 10.3 2.0 - 12.0 02/15 The [place] HEMATOLOGY Eosinophils 5.0 0.0 - 4.0 02/15 The [place] HEMATOLOGY Basophils 0.4 0.0 - 1.0 02/15 The [place] HEMATOLOGY Lymphocytes 25.7 20.0 - 02/15 The 40.0 [place] HEMATOLOGY Lymphocytes 2.0 1.0 - 5.5 02/15 MH The # [place] HEMATOLOGY Segs 58.6 45.0 - 02/15 MH The 75.0 [place] HEMATOLOGY INR 1.00 0.85 - 02/15 MH The 1.17 [place] HEMATOLOGY PT 13.5 12.0 - 02/15 The 14.7 [place] HEMATOLOGY PTT 33.7 22.9 - 02/15 The 35.8 [place] HEMATOLOGY Platelet 170 133 - 450 02/15 The [place] HEMATOLOGY WBC 7.8 3.7 - 10.4 02/15 The [place] HEMATOLOGY MCH 33.3 27.0 - 02/15 The 31.0 [place] HEMATOLOGY RBC 4.62 4.70 - 02/15 The 6.10 [place] HEMATOLOGY MCV 97.4 80.0 - 02/15 The 94.0 [place] HEMATOLOGY Hgb 15.4 14.0 - 02/15 The 18.0 [place] HEMATOLOGY Hct 45.0 42.0 - 02/15 The 54.0 [place] HEMATOLOGY MCHC 34.2 32.0 - 02/15 The 36.0 [place] HEMATOLOGY MPV 7.0 7.4 - 10.4 02/15 The [place] HEMATOLOGY RDW 16.0 11.5 - 02/15 The 14.5 [place] DRUG U Cocaine Negative Negative 01/23 The SCREEN Scr *NA* [place] (01/23/15 3:10 PM) DRUG U Opiate Scr Negative Negative 01/23 The SCREEN *NA* [place] (01/23/15 3:10 PM) DRUG U Cannab Scr Negative Negative 01/23 The SCREEN [place] (01/23/15 3:10 PM) DRUG U Phencyc Negative Negative 01/23 The SCREEN Scr *NA* [place] (01/23/15 3:10 PM) DRUG UDS Note See Note 01/23 The SCREEN (01/23/15 3:10 PM) /2014 [facility] DRUG U Shoshana Scr Negative Negative 01/23 The SCREEN *NA* [facility] (01/23/15 3:10 PM) DRUG U Benzodia Positive Negative 01/23 The SCREEN Scr *ABN* [facility] (01/23/15 3:10 PM) DRUG U Amph Scr Negative Negative 01/23 The SCREEN *NA* [place] (01/23/15 3:10 PM) URINE AND UA <=1.0 0.1 - 1.0 01/23 The STOOL Urobilinogen mg/dL /2014 [place] URINE AND UA Glucose Negative Negative 01/23 MH The STOOL mg/dL mg/dL [place] URINE AND UA Sq Epi Few /LPF Few /LPF 01/23 The STOOL /2014 [place] URINE AND UA Leuk Est Negative Negative 01/23 The STOOL (01/23/15 3:10 PM) /2014lands URINE AND UA Nitrite Negative Negative 01/23 MH The STOOL (01/23/15 3:10 PM) /2014 [place] URINE AND UA Bacteria Occasional None Seen 01/23 The STOOL /HPF /HPF [place] URINE AND UA RBC 3 0 - 2 01/23 MH The STOOL /2014 [place] URINE AND UA WBC <1 0 - 5 01/23 The STOOL /2014 [place] URINE AND UA Hyal Cast 5 0 - 2 01/23 The STOOL /2014[place] URINE AND UA Amorph Occasional None Seen 01/23 The STOOL Brisa /HPF /HPF [place] URINE AND UA Mucus Few /LPF None Seen 01/23 The STOOL /LPF /2014 [place] URINE AND UA Color Yellow Yellow 01/23 The STOOL *NA* /2014 [place] (01/23/15 3:10 PM) URINE AND UA Protein 200 mg/dL Negative 01/23 The STOOL mg/dL [place] URINE AND UA pH 6.0 5.0 - 8.0 01/23 The STOOL [place] URINE AND UA Spec Grav 1.017 <=1.030 01/23 The STOOL [place] URINE AND UA Turbidity Slight Clear 01/23 The STOOL *ABN* /2014 [place] (01/23/15 3:10 PM) URINE AND UA Blood Moderate Negative 01/23 The STOOL *ABN* /2014 [place] (01/23/15 3:10 PM) URINE AND UA Bili Negative Negative 01/23 The STOOL *NA* /2014 [place] (01/23/15 3:10 PM) URINE AND UA Ketones Trace Negative 01/23 The STOOL mg/dL mg/dL [place] URINE AND UA Sperm Occasional None Seen 01/23 The STOOL /HPF /HPF [place] CARDIAC CK MB Index 0.7 0.0 - 2.5 01/23 The ENZYMES /2014 [place] CARDIAC Troponin-I <0.02 0.00 - 01/23 The ENZYMES 0.40 [place] CARDIAC Total CK 170 12 - 191 08/29 MH The ENZYMES /2014 [place] CARDIAC CK MB 1.2 0.5 - 3.6 01/23 The ENZYMES [place] CHEM PANEL eGFR 54 01/23 [facility] Comment: [place] eGFR is calculated using the CKD-EPI formula. [...] A/G Ratio 1.0 0.7 - 1.6 01/23 [place] CHEM PANEL AST 23 0 - 37 01/23 The [place] CHEM PANEL Albumin Lvl 4.3 3.5 - 5.0 01/23 The [place] CHEM PANEL ALT 39 0 - 65 01/23 MH The [place] CHEM PANEL Total 8.8 6.4 - 8.4 01/23 MH The Protein [place] CHEM PANEL Calcium Lvl 9.3 8.5 - 10.5 01/23 The [place] CHEM PANEL AGAP 20.5 10.0 - 01/23 MH The 20.0 [place] CHEM PANEL Globulin 4.5 2.0 - 4.0 01/23 MH The [place] CHEM PANEL B/C Ratio 10 6 - 25 01/23 MH [place] CHEM PANEL Bili Total 0.5 0.2 - 1.3 01/23 The [place] CHEM PANEL Alk Phos 88 39 - 136 01/23 The [place] CHEM PANEL Potassium 4.5 3.5 - 5.1 01/23 MH The Lvl [place] CHEM PANEL Sodium Lvl 139 135 - 145 01/23 The [place] CHEM PANEL CO2 17 24 - 32 01/23 The [place] CHEM PANEL Chloride Lvl 106 95 - 109 01/23 The [place] CHEM PANEL Glucose Lvl 114 70 - 99 01/23 The [place] CHEM PANEL Creatinine 1.5 0.5 - 1.4 01/23 The Lvl [place] CHEM PANEL BUN 15 7 - 22 01/23 The [place] HEMATOLOGY Segs 89.7 45.0 - 01/23 The 75.0 [place] HEMATOLOGY Segs-Bands # 11.6 1.5 - 8.1 01/23 The [place] HEMATOLOGY Lymphocytes 0.8 1.0 - 5.5 01/23 The [place] HEMATOLOGY Lymphocytes 6.5 20.0 - 01/23 The 40.0 [place] HEMATOLOGY Monocytes 3.2 2.0 - 12.0 01/23 The [place] HEMATOLOGY Monocytes # 0.4 0.0 - 0.8 01/23 The [place] HEMATOLOGY Eosinophils 0.0 0.0 - 0.5 01/23 The [place] HEMATOLOGY Basophils # 0.1 0.0 - 0.2 01/23 The [place] HEMATOLOGY Eosinophils 0.2 0.0 - 4.0 01/23 The [place] HEMATOLOGY Basophils 0.4 0.0 - 1.0 01/23 The [place] HEMATOLOGY PT 14.2 12.0 - 01/23 The 14. [place] HEMATOLOGY INR 1.07 0.85 - 01/23 The 1.17 [place] HEMATOLOGY PTT 31.2 22.9 - 01/23 The 35.8 [place] HEMATOLOGY MPV 8.3 7.4 - 10.4 01/23 The [place] HEMATOLOGY MCHC 32.8 32.0 - 01/23 The 36.0 [place] HEMATOLOGY RDW 17.0 11.5 - 01/23 The 14. [place] HEMATOLOGY Platelet 202 133 - 450 01/23 The [place] HEMATOLOGY Hct 51.7 42.0 - 01/23 The 54.0 [place] HEMATOLOGY MCV 97.9 80.0 - 01/23 The 94.0 [place] HEMATOLOGY MCH 32.1 27.0 - 01/23 The 31.0 [place] HEMATOLOGY Hgb 17.0 14.0 - 01/23 The 18.0 [place] HEMATOLOGY WBC 12.9 3.7 - 10.4 01/23 [place] HEMATOLOGY RBC 5.28 4.70 - 01/23 The 6.10 [facility] TOXICOLOGY Etoh (%) <0.003 01/23 [facility] TOXICOLOGY Ethanol Lvl <3 01/23 [place] CHEM PANEL eGFR 71 11/20 <sup>1</sup>R [facility] Comment: The eGFR is calculated using [...] Total 0.3 0.2 - 1.3 11/20 The [place] CHEM PANEL AST 18 0 - 37 11/20 [place] CHEM PANEL Alk Phos 88 39 - 136 11/20 The [place] CHEM PANEL ALT 36 0 - 65 11/20 The [place] CHEM PANEL Albumin Lvl 4.0 3.5 - 5.0 11/20 The [place] CHEM PANEL Total 8.8 6.4 - 8.4 11/20 The Protein [place] CHEM PANEL CO2 22 24 - 32 11/20 [place] CHEM PANEL Calcium Lvl 9.5 8.5 - 10.5 11/20 [place] CHEM PANEL Chloride Lvl 103 95 - 109 11/20 The [place] CHEM PANEL Sodium Lvl 135 135 - 145 11/20 The [place] CHEM PANEL Potassium 4.2 3.5 - 5.1 11/20 The [place] CHEM PANEL Creatinine 1.2 0.5 - 1.4 11/20 The [place] CHEM PANEL Glucose Lvl 110 70 - 99 11/20 <sup>4</sup>I The nterpretive [facility] Data: Adult reference range values reflect the clinical guidelines
of the [employer]. CHEM PANEL BUN 7 7 - 22 11/20 The [place] CHEM PANEL Globulin 4.8 2.0 - 4.0 11/20 The [place] CHEM PANEL A/G Ratio 0.8 0.7 - 1.6 11/20 The [place] CHEM PANEL B/C Ratio 6 6 - 25 11/20 The [place] CHEM PANEL AGAP 14.2 10.0 - 11/20 The 20.0 [place] HEMATOLOGY Eosinophils 3.2 0.0 - 4.0 11/20 The [place] HEMATOLOGY Lymphocytes 16.7 20.0 - 11/20 The 40.0 [place] HEMATOLOGY Monocytes 6.2 2.0 - 12.0 11/20 The [place] HEMATOLOGY Segs 73.3 45.0 - 11/20 The 75.0 [place] HEMATOLOGY Basophils 0.6 0.0 - 1.0 11/20 The [place] HEMATOLOGY Basophils # 0.1 0.0 - 0.2 11/20 The [place] HEMATOLOGY Eosinophils 0.3 0.0 - 0.5 11/20 The # [place] HEMATOLOGY Monocytes # 0.6 0.0 - 0.8 11/20 The [place] HEMATOLOGY Lymphocytes 1.6 1.0 - 5.5 11/20 The [place] HEMATOLOGY Segs-Bands # 6.8 1.5 - 8.1 11/20 The [place] HEMATOLOGY Platelet 170 133 - 450 11/20 The [place] HEMATOLOGY MPV 7.6 7.4 - 10.4 11/20 [facility] HEMATOLOGY MCHC 33.8 32.0 - 11/20 The 36.0 [place] HEMATOLOGY RDW 14.2 11.5 - 11/20 The 14. [place] HEMATOLOGY MCH 33.1 27.0 - 11/20 The 31. [place] HEMATOLOGY MCV 97.9 80.0 - 11/20 The 94.0 [place] HEMATOLOGY Hgb 14.2 14.0 - 11/20 The 18.0 [place] HEMATOLOGY Hct 42.1 42.0 - 11/20 The 54.0 [place] HEMATOLOGY WBC 9.3 3.7 - 10.4 11/20 [place] HEMATOLOGY RBC 4.30 4.70 - 11/20 The 6. [facility] TOXICOLOGY Vanco Tr TND unknown 11/20 [facility] TOXICOLOGY Vanco Tr 7.7 11/20 <sup>5</sup>I nterpretive [place] Data: Therapeutic Range:
Trough: 10 - 20 ug/mL
Peak: 20 - 40 ug/mL
Potential Toxicity: >80 ug/mL CHEM PANEL eGFR 47 11/17 <sup>2</sup>R [facility] Comment: The eGFR is calculated using [...] Creatinine 1.7 0.5 - 1.4 11/17 The [place] CHEM PANEL BUN 14 7 - 22 11/17 The [place] ELECTROLYT Potassium 4.3 3.5 - 5.1 11/17 The ES Lvl [place] HEMATOLOGY Hct 36.8 42.0 - 11/17 The 54.0 [place] HEMATOLOGY MCV 97.6 80.0 - 11/17 The 94.0 [place] HEMATOLOGY MCH 33.2 27.0 - 11/17 The 31.0 [place] HEMATOLOGY Hgb 12.5 14.0 - 11/17 The 18.0 [place] HEMATOLOGY WBC 7.7 3.7 - 10.4 11/17 The [place] HEMATOLOGY RBC 3.77 4.70 - 11/17 The 6.10 [place] HEMATOLOGY RDW 14.0 11.5 - 11/17 The 14.5 [place] HEMATOLOGY Platelet 155 133 - 450 11/17 The [place] HEMATOLOGY MPV 7.7 7.4 - 10.4 11/17 The [place] HEMATOLOGY MCHC 34.0 32.0 - 11/17 The 36.0 [place] HEMATOLOGY Segs-Bands # 5.7 1.5 - 8.1 11/17 The [place] HEMATOLOGY Eosinophils 4.3 0.0 - 4.0 11/17 The [place] HEMATOLOGY Basophils # 0.0 0.0 - 0.2 11/17 The [place] HEMATOLOGY Basophils 0.3 0.0 - 1.0 11/17 The [place] HEMATOLOGY Monocytes 5.1 2.0 - 12.0 11/17 The [place] HEMATOLOGY Lymphocytes 16.3 20.0 - 11/17 The 40.0 [place] HEMATOLOGY Lymphocytes 1.2 1.0 - 5.5 11/17 The # [place] HEMATOLOGY Eosinophils 0.3 0.0 - 0.5 11/17 The # [place] HEMATOLOGY Monocytes # 0.4 0.0 - 0.8 11/17 The [place] HEMATOLOGY Segs 74.0 45.0 - 11/17 The 75.0 [place] TOXICOLOGY Vanco Tr TND unknown 11/17 The [place] TOXICOLOGY Vanco Tr 24.4 11/17 <sup>6</sup>I nterpretive [place] Data: Therapeutic Range:
Trough: 10 - 20 ug/mL
Peak: 20 - 40 ug/mL
Potential Toxicity: >80 ug/mL CHEM PANEL eGFR 54 11/13 <sup>3</sup>R [facility] Comment: The eGFR is calculated using [...] Creatinine 1.5 0.5 - 1.4 11/13 The [place] CHEM PANEL BUN 11 7 - 22 11/13 [facility] ELECTROLYT Potassium 4.5 3.5 - 5.1 11/13 The [place] HEMATOLOGY MCH 32.7 27.0 - 11/13 The 31.0 [place] HEMATOLOGY MCHC 33.6 32.0 - 11/13 The 36.0 [place] HEMATOLOGY Platelet 186 133 - 450 11/13 [facility] HEMATOLOGY RDW 14.0 11.5 - 11/13 The 14. [place] HEMATOLOGY MPV 7.4 7.4 - 10.4 11/13 [place] HEMATOLOGY Hgb 12.2 14.0 - 11/13 The 18.0 [place] HEMATOLOGY RBC 3.73 4.70 - 11/13 The 6.10 [place] HEMATOLOGY MCV 97.6 80.0 - 11/13 The 94.0 [place] HEMATOLOGY Hct 36.4 42.0 - 11/13 The 54.0 [place] HEMATOLOGY WBC 9.7 3.7 - 10.4 11/13 The [place] HEMATOLOGY Basophils # 0.1 0.0 - 0.2 11/13 The [place] HEMATOLOGY Lymphocytes 2.0 1.0 - 5.5 11/13 The [place] HEMATOLOGY Monocytes # 0.7 0.0 - 0.8 11/13 The [place] HEMATOLOGY Eosinophils 0.4 0.0 - 0.5 11/13 The # [place] HEMATOLOGY Basophils 0.6 0.0 - 1.0 11/13 The [place] HEMATOLOGY Segs-Bands # 6.6 1.5 - 8.1 11/13 The [place] HEMATOLOGY Lymphocytes 20.5 20.0 - 11/13 The 40.0 [place] HEMATOLOGY Monocytes 7.3 2.0 - 12.0 11/13 The [place] HEMATOLOGY Eosinophils 3.7 0.0 - 4.0 11/13 The [place] HEMATOLOGY Segs 67.9 45.0 - 11/13 The 75.0 [place] TOXICOLOGY Vanco Tr TND NA 11/13 [facility] TOXICOLOGY Vanco Tr 24.1 11/13 <sup>7</sup>I nterpretive [facility] Data: Therapeutic Range:
Trough: 10 - 20 ug/mL
Peak: 20 - 40 ug/mL
Potential Toxicity: >80 ug/mL Pathology Reports No Data Provided for This Section Diagnostic Reports Report Value Date Source Ext Lower Venous Doppler Study: Ext Lower Venous Doppler Bilat US 03/13/2016 11:06 PM CDT 03/13/2016 [facility] Bil US Ordering Physician: Blanche Diaz MD [...] no evidence for deep venous thrombosis. SL: [id number] Chest 1view DX Study: Chest 1view DX 03/13/2016 11:18 PM CDT 03/13/2016 [facility] Ordering Physician: Blanche Diaz MD [...] no pneumothorax. No acute cardiopulmonary disease. SL: [id number] Chest 1view DX Clinical Indication: Fever; 02/15/2016 [facility] Comparison: 02/15/2015 FINDINGS: AP chest radiographs shows normal lung volumes without interstitial or airspace opacities, pleural effusions or pneumothorax. The heart size and pulmonary vasculature are normal. The trachea is midline. There are no clinically significant osseous abnormalities noted. IMPRESSION: No chest radiographic evidence of acute cardiopulmonary disease. SL: [id number] Foot series DX Clinical Indication: Pain and swelling. Post surgery. 2015 [facility] Comparison: 01/31/2016. FINDINGS: The 4 views of [...] post transmetatarsal amputation, as noted above. SL: [id number] Abdominal Aorta with Clinical Indication: Gangrene; right foot gangrene. 12/2015 [facility] runoff CTA Comparison: None TECHNIQUE: CT angiography [...] 5th MCP is concerning for osteomyelitis. SL: [id number] Retroperitoneal limited Clinical Indication: Renal insufficiency 02/01/2016 [facility] US Comparison: None TECHNIQUE: Multiple longitudinal and [...] with hematuria or urinary tract infection. SL: [id number] Ext Lower Arterial Clinical Indication: Right leg claudication and leg ulcer. 01/31/2016 [facility] Doppler unilat US Comparison: None TECHNIQUE: Sonographic evaluation of the right lower extremity arteries was performed with grayscale and color Doppler imaging with standard technique. FINDINGS: RIGHT: VETERINARY PHARMACOLOGIST: Monophasic waveforms with severely decreased peak systolic velocities. SFA: Monophasic waveforms. Spectral broadening. Mildly decreased peak systolic velocities. This may be related to collateral flow. POP: Monophasic waveforms. Spectral broadening with moderately decreased peak systolic velocities. ENCODING MACHINE OPERATOR: Monophasic waveforms. Spectral broadening with severely decreased [...] or conventional angiography for complete assessment. SL: [id number] Foot series DX Clinical Indication: Pain and swelling , status post amputation 4 years ago 01/31/2016 [facility] Comparison: None FINDINGS: 3 views of the [...] the right foot may be beneficial. SL: [id number] Chest 2 views DX NAME: REMEDIOS SANCHEZ 02/15/2015 [facility] : 1965 SEX: M Ordering Physician: Jaciel [...] Wrist complete DX NAME: REMEDIOS SANCHEZ 02/09/2015 [facility] : 1965 SEX: M Ordering Physician: Víctor [...] wo contrast CT Name: REMEDIOS SANCHEZ 01/23/2015 [facility] : 1965 SEX: M Ordering Physician: Tim [...] Comments Source Systolic (mm Hg) 84 04/05/2016 [place] Diastolic (mm Hg) 47 04/05/2016 [place] Respitory Rate 18 04/05/2016 [place] Heart Rate 76 04/05/2016 [place] Systolic (mm Hg) 80 04/05/2016 [place] Diastolic (mm Hg) 49 04/05/2016 [place] Respitory Rate 18 04/05/2016 [place] Heart Rate 73 04/05/2016 [place] Respitory Rate 18 04/05/2016 [place] Heart Rate 72 04/05/2016 [facility] Systolic (mm Hg) 79 04/05/2016 [facility] [place] Diastolic (mm Hg) 42 04/05/2016 [place] Temperature Oral (F) 97.7 F 04/05/2016 [place] Temperature Oral (F) 97.7 F 04/05/2016 [place] Temperature Oral (F) 98.2 F 04/05/2016 [place] Weight 98.6 04/05/2016 [place] BMI Calculated 28.81 04/05/2016 [place] Height 185 cm 04/05/2016 [place] Respitory Rate 18 03/14/2016 [place] Systolic (mm Hg) 119 03/14/2016 [place] Diastolic (mm Hg) 63 03/14/2016 [place] Systolic (mm Hg) 124 03/14/2016 [place] Diastolic (mm Hg) 58 03/14/2016 [place] Respitory Rate 16 03/14/2016 [place] Temperature Oral (F) 98.8 F 03/14/2016 [place] Respitory Rate 18 03/14/2016 [place] Systolic (mm Hg) 129 03/14/2016 [place] Diastolic (mm Hg) 62 03/14/2016 [place] Temperature Oral (F) 98.7 F 03/14/2016 [place] Heart Rate 95 03/14/2016 [place] BMI Calculated 28.69 03/13/2016 [place] Weight 98.636 03/13/2016 [place] Temperature Oral (F) 98.6 F 03/13/2016 [place] Height 185.42 cm 03/13/2016 [place] Heart Rate 105 03/13/2016 [place] Heart Rate 111 02/18/2016 [place] Temperature Oral (F) 98.8 F 02/18/2016 [place] Respitory Rate 18 02/18/2016 [place] Systolic (mm Hg) 110 02/18/2016 [place] Diastolic (mm Hg) 56 02/18/2016 [place] Temperature Oral (F) 98.3 F 02/18/2016 [place] Heart Rate 97 02/18/2016 [place] Systolic (mm Hg) 94 02/18/2016 [place] Diastolic (mm Hg) 56 02/18/2016 [place] Respitory Rate 18 02/18/2016 [place] Temperature Oral (F) 98.2 F 02/18/2016 [place] Heart Rate 86 02/18/2016 [facility] [place] Systolic (mm Hg) 112 02/18/2016 [facility] [place] Diastolic (mm Hg) 54 02/18/2016 [facility] [place] Respitory Rate 18 02/18/2016 [place] Weight 96.023 02/08/2016 [facility] [place] BMI Calculated 28.69 02/08/2016 [facility] [place] Weight 98.636 02/08/2016 [facility] [place] Height 185.42 cm 02/08/2016 [facility] [place] Weight 97.273 02/01/2016 [facility] [place] BMI Calculated 28.29 02/01/2016 [facility] [place] Height 185.42 cm 02/01/2016 [facility] [place] Height 185.42 cm 01/31/2016 [facility] [place] BMI Calculated 27.63 01/31/2016 [place] Respitory Rate 16 02/16/2015 [place] Temperature Oral (F) 98.0 F 02/16/2015 [place] Respitory Rate 18 02/16/2015 [place] Heart Rate 77 02/16/2015 [facility] [place] Systolic (mm Hg) 175 02/16/2015 [facility] [place] Diastolic (mm Hg) 94 02/16/2015 [place] Temperature Oral (F) 98.2 F 02/16/2015 [place] Heart Rate 74 02/16/2015 [facility] [place] Systolic (mm Hg) 164 02/16/2015 [facility] [place] Diastolic (mm Hg) 89 02/16/2015 [place] Respitory Rate 18 02/16/2015 [place] Temperature Oral (F) 97.5 F 02/16/2015 [place] Systolic (mm Hg) 145 02/16/2015 [facility] [place] Diastolic (mm Hg) 83 02/16/2015 [place] Heart Rate 72 02/16/2015 [facility] [place] Height 185.42 cm 02/16/2015 [facility] [place] BMI Calculated 28.58 02/16/2015 [facility] [place] Weight 98.267 02/16/2015 [facility] [place] Weight 13.636 02/15/2015 [facility] [place] BMI Calculated 3.97 02/15/2015 [facility] [place] Height 185.42 cm 02/15/2015 [place] Temperature Oral (F) 98.2 F 02/09/2015 [place] Heart Rate 88 02/09/2015 [facility] [place] Respitory Rate 18 02/09/2015 [facility] [place] Systolic (mm Hg) 173 02/09/2015 [facility] [place] Diastolic (mm Hg) 82 02/09/2015 [place] BMI Calculated 31.47 02/09/2015 [place] Weight 108.182 02/09/2015 [place] Height 185.42 cm 02/09/2015 [facility] [place] Systolic (mm Hg) 189 02/09/2015 [facility] [place] Diastolic (mm Hg) 97 02/09/2015 [place] Heart Rate 77 02/09/2015 [facility] [place] Respitory Rate 16 02/09/2015 [facility] [place] Systolic (mm Hg) 172 01/23/2015 [facility] [place] Diastolic (mm Hg) 79 01/23/2015 [facility] [place] Systolic (mm Hg) 174 01/23/2015 [facility] [place] Diastolic (mm Hg) 92 01/23/2015 [place] Systolic (mm Hg) 184 01/23/2015 [facility] [place] Diastolic (mm Hg) 86 01/23/2015 [facility] [place] Respitory Rate 18 01/23/2015 [facility] [place] Weight 104.545 01/23/2015 [facility] [place] Height 185.42 cm 01/23/2015 [place] BMI Calculated 30.41 01/23/2015 [facility] [place] Respitory Rate 18 01/23/2015 [place] Heart Rate 92 01/23/2015 [place] Temperature Oral (F) 98.5 F 01/23/2015 [place] Encounters Location Location Encounter Encounter Reason Attending ADM DC Status Source Details Type Number For Provider Date Date Visit [facility] OP Recurring [id number] Nabeel 10/31 11/30 [facility] [place] [facility]2013 [facility] EC Emergency [id number] Edozie 01/23 01/23 [facility] [place] /2014 [facility] EC Emergency [id number] [place] 02/09 02/09 [facility] /2014 [facility] OBS [id number] Juan 02/15 02/16 [facility] [place] /2014 [place] [facility] Inpatient [id number] Abbas 01/30 02/17 [facility] [place] /2015 [facility] Emergency [id number] Blanche 03/13 03/14 [facility] [place] /2015 [facility] Outpatient [id number] Abbas 04/05 04/06 [facility] Procedures Procedure Code Date Perfomer Comments Source Amputation of toe [id number] [place] Amputation of [id number] 2 toes The toe<sup>1</sup> Quint[place] Blood transfusion [id number] [facility] Assessment and Plan Assessment and Plan Date Source Extracted from:Title: id 02/18/2016 [facility] Author: Rogerio Ruggiero DO Date: 02/18/16 Impression and Plan The patient was seen and examined by me with the resident/[employer]ICULT[employer] LOAN OFFICER/PA and I agree with the History/Exam documented. Extracted from:Title: Dr. Eugene Podiatry Consultation Author: Lise Eugene DPM Date: 02/10/16 Impression and Plan Diagnosis Gangrene of foot ([id number] I96, Working, Medical). PVD (peripheral vascular disease) ([id number] I73.9, Working, Medical). Course: Worsening. - PLAN [...] for assistance Extracted from:Title: Consult Note 02/16/2015 [place] Author: Foreign Toscano MD Date: 02/16/15 Assessment/Plan [...] History Date Source Social History TypeResponse 10/21/2013 [place] Substance Abuse Previous Treatment: None. Alcohol Current, [...]
--- OUTSIDE RECORDS SUMMARY | 2019-02-16 18:31 | XMS REPORT ---
:1965 [facility] Address [address] [place] [address] [address]. [address] [place] [address] Care Team Providers Name Role Phone CLARISSA [...] Value Reference Range Comments CULTURE (BEAKER) (test nlpa=9493) No growth in 5 days BLOOD [id number] 20:01:00 Test Item Value Reference Range Comments CULTURE (BEAKER) (test cpkp=6804) No growth in 5 days EEG AWAKE AND [id number] 14:49:00Reason for exam:->seizuresDate(s) of EE10/14/18DATE OF REPORT: 10/14/18ACC: [id number] Number: [id number] time: 13:36Stop time: 13:57ICD-10: R56.9 Unspecified ConvulsionsCPT Code: 61442 EEG: awake and drowsy <40 min HISTORY: [...] Fellow Anjali Floyd MDNeurophysiology/Epilepsy Attending BASI METABOLIC [id number] 07:41:00 Test Item Value Reference Range Comments SODIUM (BEAKER) (test 133 meq/L 136-145 jdef=850) POTASSIUM (BEAKER) (test 4.1 meq/L 3.5-5.1 Specimen slightly zgni=294) hemolyzed CHLORIDE (BEAKER) (test 103 meq/L 98-107 kdkg=471) CO2 (BEAKER) (test 19 meq/L 22-29 ogss=210) BLOOD UREA NITROGEN 8 mg/dL 7-21 (BEAKER) (test zsqh=307) CREATININE (BEAKER) (test 0.83 mg/dL 0.57-1.25 Specimen slightly mqge=270) hemolyzed GLUCOSE RANDOM (BEAKER) 84 mg/dL 70-105 (test wdig=783) CALCIUM (BEAKER) (test 8.5 mg/dL 8.4-10.2 ybxy=326) EGFR (BEAKER) (test 97 mL/min/1.73 sq m ESTIMATED GFR IS NOT nwzh=8226) ACCURATE CREATININE CLEARANCE IN PREDICTING GLOMERULAR FILTRATION RATE. ESTIMATED GFR IS NOT APPLICABLE FOR DIALYSIS PATIENTS. CBC W/PLT COUNT & AUTO [id number] 05:30:00 Test Item Value Reference Range Comments WHITE BLOOD CELL COUNT (BEAKER) (test drcd=283) 9.7 K/ L 3.5-10.5 RED BLOOD CELL COUNT (BEAKER) (test ohsh=422) 4.44 M/ L 4.63-6.08 HEMOGLOBIN (BEAKER) (test xuod=215) 14.9 GM/DL 13.7-17.5 HEMATOCRIT (BEAKER) (test gclb=994) 44.1 % 40.1-51.0 MEAN CORPUSCULAR VOLUME (BEAKER) (test ztfa=007) 99.3 fL 79.0-92.2 MEAN CORPUSCULAR HEMOGLOBIN (BEAKER) (test 33.6 pg 25.7-32.2 mvut=027) MEAN CORPUSCULAR HEMOGLOBIN CONC (BEAKER) (test 33.8 GM/DL 32.3-36.5 kinl=143) RED CELL DISTRIBUTION WIDTH (BEAKER) (test 15.2 % 11.6-14.4 zbjj=474) PLATELET COUNT (BEAKER) (test dhyw=849) 177 K/CU MM 150-450 MEAN PLATELET VOLUME (BEAKER) (test gygy=237) 9.7 fL 9.4-12.4 NUCLEATED RED BLOOD CELLS (BEAKER) (test 0 /100 WBC 0-0 rukz=214) NEUTROPHILS RELATIVE PERCENT (BEAKER) (test 73 % ypfy=176) LYMPHOCYTES RELATIVE PERCENT (BEAKER) (test 16 % adrg=230) MONOCYTES RELATIVE PERCENT (BEAKER) (test 11 % opjc=286) EOSINOPHILS RELATIVE PERCENT (BEAKER) (test 0 % toyj=586) BASOPHILS RELATIVE PERCENT (BEAKER) (test 0 % krro=578) NEUTROPHILS ABSOLUTE COUNT (BEAKER) (test 7.05 K/ L 1.78-5.38 zklg=362) LYMPHOCYTES ABSOLUTE COUNT (BEAKER) (test 1.52 K/ L 1.32-3.57 kdhh=033) MONOCYTES ABSOLUTE COUNT (BEAKER) (test 1.04 K/ L 0.30-0.82 yrqb=426) EOSINOPHILS ABSOLUTE COUNT (BEAKER) (test 0.01 K/ L 0.04-0.54 zywc=352) BASOPHILS ABSOLUTE COUNT (BEAKER) (test 0.04 K/ L 0.01-0.08 ujkx=858) IMMATURE GRANULOCYTES-RELATIVE PERCENT (BEAKER) 0 % 0-1 (test hwvc=2612) VITAMIN B12 AND [id number] 19:46:00 Test Item Value Reference Range Comments VITAMIN B12 (BEAKER) (test cnrs=841) 683 pg/mL 213-816 FOLATE (BEAKER) (test cgio=525) > ng/mL >=7.0 [id number] 17:59:00 Test Item Value Reference Range Comments PHOSPHORUS (BEAKER) (test sbhv=147) 4.0 mg/dL 2.3-4.7 [id number] 17:59:00 Test Item Value Reference Range Comments MAGNESIUM (BEAKER) (test xctu=483) 2.5 mg/dL 1.6-2.6 CT, BRAIN, WITHOUT [id number] 16:58:00FINAL REPORT CT head without contrast. Reason [...] chronic microvascular ischemic changes. Signed: Delisa Bustillo MDReport Verified Date/Time: 10/12/2018 16:58:56 Reading Location: [address] Neuro Reading Room Electronically signed by: DELISA BUSTILLO M.D. on 04:58 PMURINALYSIS W/ [id number] 16:25:00 Test Item Value Reference Range Comments COLOR (BEAKER) (test ktmm=676) Light Yellow CLARITY (BEAKER) (test inlo=788) Clear SPECIFIC GRAVITY UA (BEAKER) (test ojpm=227) 1.007 1.001-1.035 PH UA (BEAKER) (test awkk=782) 5.5 5.0-8.0 PROTEIN UA (BEAKER) (test kbgt=320) 10 mg/dL Negative GLUCOSE UA (BEAKER) (test vbrk=246) Negative Negative KETONES UA (BEAKER) (test fpmn=089) 20 mg/dL Negative BILIRUBIN UA (BEAKER) (test chtm=491) Negative Negative BLOOD UA (BEAKER) (test dcix=212) Trace Negative NITRITE UA (BEAKER) (test abls=128) Negative Negative LEUKOCYTE ESTERASE UA (BEAKER) (test yvgx=672) Negative Negative UROBILINOGEN UA (BEAKER) (test bhrw=380) 0.2 mg/dL 0.2-1.0 RBC UA (BEAKER) (test nngu=394) < /HPF WBC UA (BEAKER) (test xujo=983) 1 /HPF SQUAMOUS EPITHELIAL (BEAKER) (test kiol=239) < /HPF SOURCE(BEAKER) (test zqfd=2821) Urine, Voided BLOOD [id number] 10:00:00 Test Item Value Reference Range Comments CULTURE (BEAKER) (test bsrt=6753) No growth in 5 days STOOL CULTURE + SHIGA [id number] 09:59:00 Test Item Value Reference Range Comments CULTURE (BEAKER) (test No Salmonella, Shigella or cygh=8512) Campylobacter isolated STOOL PATH [id number] 09:01:00 Test Item Value Reference Range Comments PATHOGEN EXAM CHARGED (BEAKER) (test doqk=8468) Done BASIC METABOLIC [id number] 06:59:00 Test Item Value Reference Range Comments SODIUM (BEAKER) (test 137 meq/L 136-145 jgkd=448) POTASSIUM (BEAKER) (test 3.6 meq/L 3.5-5.1 uvwc=310) CHLORIDE (BEAKER) (test 110 meq/L 98-107 pfbo=316) CO2 (BEAKER) (test 16 meq/L 22-29 tfju=746) BLOOD UREA NITROGEN 18 mg/dL 7-21 (BEAKER) (test frjx=433) CREATININE (BEAKER) (test 2.02 mg/dL 0.57-1.25 pztu=556) GLUCOSE RANDOM (BEAKER) 91 mg/dL 70-105 (test kczh=482) CALCIUM (BEAKER) (test 9.3 mg/dL 8.4-10.2 wsvl=720) EGFR (BEAKER) (test 35 mL/min/1.73 sq m ESTIMATED GFR IS NOT kwsd=9037) ACCURATE CREATININE CLEARANCE IN PREDICTING GLOMERULAR FILTRATION RATE. ESTIMATED GFR IS NOT APPLICABLE FOR DIALYSIS PATIENTS. SHIGA TOXIN [id number] 15:48:00 Test Item Value Reference Range Comments SHIGA TOXIN 1 (BEAKER) (test bqgd=9702) Not detected Not detected SHIGA TOXIN 2 (BEAKER) (test ztcr=2477) Not detected Not detected CLOSTRIDIUM DIFFICILE TOXIN [id number] 15:13:00 Test Item Value Reference Range Comments CLOSTRIDIUM DIFFICILE TOXIN, PCR (BEAKER) (test Not Detected Not Detected iszi=7169) This qualitative real-time polymerase chain reaction assay [...] a positive result is not recommended.BLOOD GAS, [id number] 11:03:00 Test Item Value Reference Range Comments PH ARTERIAL (BEAKER) (test lmwe=442) 7.38 7.35-7.45 PCO2 ARTERIAL (BEAKER) (test lrxd=583) 28 mmHg 35-45 PO2 ARTERIAL (BEAKER) (test hdgy=380) 95 mmHg 80-90 O2 SATURATION ARTERIAL (BEAKER) (test tkbq=416) 97.4 % 96.0-97.0 HCO3 ARTERIAL (BEAKER) (test kcul=587) 16 mmol/L 21-29 BASE EXCESS ARTERIAL (BEAKER) (test lcsb=126) -7.2 mmol/L -2.0-3.0 PATIENT TEMPERATURE (BEAKER) (test ghfv=3383) 36.5 C FIO2 (BEAKER) (test mrsp=0280) 21.0 % BASIC METABOLIC [id number] 05:14:00 Test Item Value Reference Range Comments SODIUM (BEAKER) (test 136 meq/L 136-145 apvp=670) POTASSIUM (BEAKER) (test 3.9 meq/L 3.5-5.1 gulg=766) CHLORIDE (BEAKER) (test 111 meq/L 98-107 zpjd=015) CO2 (BEAKER) (test 13 meq/L 22-29 ihgk=347) BLOOD UREA NITROGEN 20 mg/dL 7-21 (BEAKER) (test yllc=128) CREATININE (BEAKER) (test 2.70 mg/dL 0.57-1.25 nklg=656) GLUCOSE RANDOM (BEAKER) 77 mg/dL 70-105 (test jeab=019) CALCIUM (BEAKER) (test 9.3 mg/dL 8.4-10.2 pbqo=140) EGFR (BEAKER) (test 25 mL/min/1.73 sq m ESTIMATED GFR IS NOT bhqc=4780) ACCURATE CREATININE CLEARANCE IN PREDICTING GLOMERULAR FILTRATION RATE. ESTIMATED GFR IS NOT APPLICABLE FOR DIALYSIS PATIENTS. PTH, [id number] 05:03:00 Test Item Value Reference Range Comments PARATHYROID HORMONE INTACT (BEAKER) (test 41.8 pg/mL 8.5-72.5 dkad=332) BASIC METABOLIC [id number] 07:10:00 Test Item Value Reference Range Comments SODIUM (BEAKER) (test 136 meq/L 136-145 rbyi=091) POTASSIUM (BEAKER) (test 3.4 meq/L 3.5-5.1 lvug=260) CHLORIDE (BEAKER) (test 109 meq/L 98-107 usng=160) CO2 (BEAKER) (test 15 meq/L 22-29 xcko=200) BLOOD UREA NITROGEN 23 mg/dL 7-21 (BEAKER) (test qaqy=383) CREATININE (BEAKER) (test 3.91 mg/dL 0.57-1.25 twfw=915) GLUCOSE RANDOM (BEAKER) 79 mg/dL 70-105 (test eogk=421) CALCIUM (BEAKER) (test 8.9 mg/dL 8.4-10.2 nfyc=483) EGFR (BEAKER) (test 16 mL/min/1.73 sq m ESTIMATED GFR IS NOT msrd=5787) ACCURATE CREATININE CLEARANCE IN PREDICTING GLOMERULAR FILTRATION RATE. ESTIMATED GFR IS NOT APPLICABLE FOR DIALYSIS PATIENTS. SODIUM, RANDOM [id number] 06:58:00 Test Item Value Reference Range Comments SODIUM URINE (BEAKER) (test tilz=886) 65 meq/L Reference Range: No NormalsPROTHROMBIN [id number] 06:47:00 Test Item Value Reference Range Comments PROTIME (BEAKER) (test iyqy=990) 14.5 seconds 11.7-14.7 INR (BEAKER) (test sxle=625) 1.1 <=5.9 RECOMMENDED COUMADIN/WARFARIN INR THERAPY RANGESSTANDARD DOSE: 2.0 - 3.0 Includes: PROPHYLAXIS forvenous thrombosis, systemic embolization; TREATMENT for venous thrombosis and/or pulmonary embolus.HIGH RISK: Target INR is 2.5-3.5 for patients with mechanical heart valves.RAPID DRUG SCREEN, [id number] 15: 43:00 Test Item Value Reference Range Comments BARBITURATE URINE (BEAKER) (test hdvq=766) Negative Negative BENZODIAZEPINE SCREEN URINE (BEAKER) (test Positive Negative fkqd=516) COCAINE (METAB.) SCREEN (BEAKER) (test jjjq=6113) Negative Negative METHADONE SCREEN (BEAKER) (test rcyi=1492) Negative Negative OPIATE SCREEN URINE (BEAKER) (test nyow=734) Negative Negative CANNABINOID SCREEN URINE (BEAKER) (test expa=757) Negative Negative AMPH/METHAMPH SCREEN (BEAKER) (test akyy=9004) Negative Negative PHENCYCLIDINE SCREEN URINE (BEAKER) (test ggav=966) Negative Negative OXYCODONE SCREEN URINE (BEAKER) (test nfcm=7987) Negative Negative DRUG CUTOFF CONC.Cocaine 300 ng/mL Cannabinoid 50 ng/mL Benzodiazepine 200 ng/mLBarbiturate 200 ng/ mLPhencyclidine 25 ng/mLOpiate 300 ng/mLMethadone 300 ng/mLAmphetamine/ 1000 ng/mL MethamphetamineOxycodone 300 ng/mLThis assay provides an unconfirmed qualitative test result for the clinical management of patients in emergency situations. Chain of custody not maintained. Some izdc-jif-vqipufh medications, as well as adulterants, may cause inaccurate results. Clinical correlation should be applied. A more comprehensive drug screen or confirmation of a detected drug may be performed upon request.URINE [id number] 14:33:00 Test Item Value Reference Range Comments CULTURE (BEAKER) (test wpsl=9237) No growth BASIC METABOLIC [id number] 08:09:00 Test Item Value Reference Range Comments SODIUM (BEAKER) (test 136 meq/L 136-145 dgwl=375) POTASSIUM (BEAKER) (test 3.5 meq/L 3.5-5.1 Specimen slightly enqb=315) hemolyzed CHLORIDE (BEAKER) (test 107 meq/L 98-107 izzq=818) CO2 (BEAKER) (test 15 meq/L 22-29 pywh=873) BLOOD UREA NITROGEN 25 mg/dL 7-21 (BEAKER) (test kphw=037) CREATININE (BEAKER) (test 4.75 mg/dL 0.57-1.25 Specimen slightly vwtu=923) hemolyzed GLUCOSE RANDOM (BEAKER) 74 mg/dL 70-105 (test amkm=300) CALCIUM (BEAKER) (test 8.5 mg/dL 8.4-10.2 jqqz=659) EGFR (BEAKER) (test 13 mL/min/1.73 sq m ESTIMATED GFR IS NOT llar=7089) ACCURATE CREATININE CLEARANCE IN PREDICTING GLOMERULAR FILTRATION RATE. ESTIMATED GFR IS NOT APPLICABLE FOR DIALYSIS PATIENTS. CBC W/PLT COUNT & AUTO [id number] 06:38:00 Test Item Value Reference Range Comments WHITE BLOOD CELL COUNT (BEAKER) (test zvsn=217) 9.9 K/ L 3.5-10.5 RED BLOOD CELL COUNT (BEAKER) (test flqo=790) 4.01 M/ L 4.63-6.08 HEMOGLOBIN (BEAKER) (test bnkg=345) 13.2 GM/DL 13.7-17.5 HEMATOCRIT (BEAKER) (test uolf=537) 38.1 % 40.1-51.0 MEAN CORPUSCULAR VOLUME (BEAKER) (test ilmd=651) 95.0 fL 79.0-92.2 MEAN CORPUSCULAR HEMOGLOBIN (BEAKER) (test 32.9 pg 25.7-32.2 txik=464) MEAN CORPUSCULAR HEMOGLOBIN CONC (BEAKER) (test 34.6 GM/DL 32.3-36.5 amai=568) RED CELL DISTRIBUTION WIDTH (BEAKER) (test 13.1 % 11.6-14.4 jvqm=995) PLATELET COUNT (BEAKER) (test yyfu=652) 121 K/CU MM 150-450 MEAN PLATELET VOLUME (BEAKER) (test ddsx=939) 10.1 fL 9.4-12.4 NUCLEATED RED BLOOD CELLS (BEAKER) (test 0 /100 WBC 0-0 xgel=659) NEUTROPHILS RELATIVE PERCENT (BEAKER) (test 73 % fqld=737) LYMPHOCYTES RELATIVE PERCENT (BEAKER) (test 17 % mgpb=616) MONOCYTES RELATIVE PERCENT (BEAKER) (test 8 % npit=651) EOSINOPHILS RELATIVE PERCENT (BEAKER) (test 2 % vlfq=814) BASOPHILS RELATIVE PERCENT (BEAKER) (test 0 % ybyn=690) NEUTROPHILS ABSOLUTE COUNT (BEAKER) (test 7.25 K/ L 1.78-5.38 bkhm=687) LYMPHOCYTES ABSOLUTE COUNT (BEAKER) (test 1.66 K/ L 1.32-3.57 epfr=953) MONOCYTES ABSOLUTE COUNT (BEAKER) (test 0.76 K/ L 0.30-0.82 ccvn=482) EOSINOPHILS ABSOLUTE COUNT (BEAKER) (test 0.19 K/ L 0.04-0.54 otcr=754) BASOPHILS ABSOLUTE COUNT (BEAKER) (test 0.03 K/ L 0.01-0.08 owfa=058) IMMATURE GRANULOCYTES-RELATIVE PERCENT (BEAKER) 0 % 0-1 (test btka=6543) U/S, RENAL, [id number] 22:34:00Reason for exam:->acute kidney injuryFINAL REPORT Renal [...] with no evidence of hydronephrosis. Signed: Zion Jackort Verified Date/Time: 2016 22:34:25 Reading Location:[facility] C013 Consult Reading Room MR, BRAIN, WITHOUT [id number] 19:18:00Reason for exam:->Stroke evaluationFINAL REPORT MRI Brain [...] Nelson Verified Date/Time: 04/17/2017 19:18:34 Reading Location: [facility] Radiology Reading Room EEG MONITORING WITH VIDEO RECORDING EACH 24 [id number] 18:01:00DATE OF TEST: 04/17/2017 DATE OF REPORT 04/17/2017 ACC: [id number] EE Start time: 16:42 Stop time: 18: 44 ICD-10: R56.9 CPT Code: 55024 HISTORY: 51 y/o woman with history of [...] Shahnaz Davis MD Neurophysiology Attending URINALYSIS W/ [id number] 11:57:00 Test Item Value Reference Range Comments COLOR (BEAKER) (test lfhv=213) Light Yellow CLARITY (BEAKER) (test gngt=777) Clear SPECIFIC GRAVITY UA (BEAKER) (test bmfu=766) 1.006 1.001-1.035 PH UA (BEAKER) (test jxkn=228) 6.0 5.0-8.0 PROTEIN UA (BEAKER) (test nknr=913) 30 mg/dL Negative GLUCOSE UA (BEAKER) (test zcck=173) Negative Negative KETONES UA (BEAKER) (test gref=826) Negative Negative BILIRUBIN UA (BEAKER) (test skaw=539) Negative Negative BLOOD UA (BEAKER) (test zlli=056) Small Negative NITRITE UA (BEAKER) (test hgxd=955) Negative Negative LEUKOCYTE ESTERASE UA (BEAKER) (test fbjl=230) Large Negative UROBILINOGEN UA (BEAKER) (test vtye=391) 0.2 mg/dL 0.2-1.0 RBC UA (BEAKER) (test ofhu=021) 7 /HPF WBC UA (BEAKER) (test speb=839) 21 /HPF BACTERIA (BEAKER) (test pofz=709) Occasional SQUAMOUS EPITHELIAL (BEAKER) (test besz=990) < /HPF URIC ACID CRYSTALS (BEAKER) (test fbek=3216) Rare SOURCE(BEAKER) (test mgkn=0092) Urine, Cooper EOSINOPHIL SMEAR, [id number] 11:56:00 Test Item Value Reference Range Comments EOSINOPHIL SMEAR, URINE (BEAKER) (test No EOS seen No EOS seen unmd=1501) CREATININE, RANDOM [id number] 11:24:00 Test Item Value Reference Range Comments CREATININE URINE (BEAKER) (test vypu=295) 69.7 mg/dL Reference Range: No NormalsSODIUM, RANDOM [id number] 11:24:00 Test Item Value Reference Range Comments SODIUM URINE (BEAKER) (test oaxr=519) 58 meq/L Reference Range: No NormalsUREA NITROGEN, RANDOM [id number] 11:24:00 Test Item Value Reference Range Comments UREA NITROGEN URINE (BEAKER) (test vczq=374) 172 mg/dL Reference Range: No NormalsCREATINE KINASE (CK)2017-04-17 11:06:00 Test Item Value Reference Range Comments CREATINE KINASE TOTAL (BEAKER) (test rtxe=141) 136 U/L 29-200 BASIC METABOLIC [id number] 04:53:00 Test Item Value Reference Range Comments SODIUM (BEAKER) (test 137 meq/L 136-145 hcos=770) POTASSIUM (BEAKER) (test 3.4 meq/L 3.5-5.1 dcmv=372) CHLORIDE (BEAKER) (test 105 meq/L 98-107 qupw=312) CO2 (BEAKER) (test 21 meq/L 22-29 rcuy=322) BLOOD UREA NITROGEN 19 mg/dL 7-21 (BEAKER) (test sugb=608) CREATININE (BEAKER) (test 3.75 mg/dL 0.57-1.25 qipk=824) GLUCOSE RANDOM (BEAKER) 100 mg/dL 70-105 (test qygf=854) CALCIUM (BEAKER) (test 8.6 mg/dL 8.4-10.2 xkxe=598) EGFR (BEAKER) (test 17 mL/min/1.73 sq m ESTIMATED GFR IS NOT aqpx=9146) ACCURATE CREATININE CLEARANCE IN PREDICTING GLOMERULAR FILTRATION RATE. ESTIMATED GFR IS NOT APPLICABLE FOR DIALYSIS PATIENTS. CBC W/PLT COUNT & AUTO [id number] 04:19:00 Test Item Value Reference Range Comments WHITE BLOOD CELL COUNT (BEAKER) (test ekap=382) 12.0 K/ L 3.5-10.5 RED BLOOD CELL COUNT (BEAKER) (test dxgq=976) 4.19 M/ L 4.63-6.08 HEMOGLOBIN (BEAKER) (test ivbj=653) 13.8 GM/DL 13.7-17.5 HEMATOCRIT (BEAKER) (test ldjm=072) 40.4 % 40.1-51.0 MEAN CORPUSCULAR VOLUME (BEAKER) (test rvba=606) 96.4 fL 79.0-92.2 MEAN CORPUSCULAR HEMOGLOBIN (BEAKER) (test 32.9 pg 25.7-32.2 zcsh=352) MEAN CORPUSCULAR HEMOGLOBIN CONC (BEAKER) (test 34.2 GM/DL 32.3-36.5 coyz=626) RED CELL DISTRIBUTION WIDTH (BEAKER) (test 13.4 % 11.6-14.4 ikhv=817) PLATELET COUNT (BEAKER) (test srma=513) 118 K/CU MM 150-450 MEAN PLATELET VOLUME (BEAKER) (test pktq=259) 9.5 fL 9.4-12.4 NUCLEATED RED BLOOD CELLS (BEAKER) (test 0 /100 WBC 0-0 enxz=180) NEUTROPHILS RELATIVE PERCENT (BEAKER) (test 77 % cisv=424) LYMPHOCYTES RELATIVE PERCENT (BEAKER) (test 15 % fnxf=506) MONOCYTES RELATIVE PERCENT (BEAKER) (test 7 % hhxx=503) EOSINOPHILS RELATIVE PERCENT (BEAKER) (test 1 % rczv=250) BASOPHILS RELATIVE PERCENT (BEAKER) (test 0 % xvls=117) NEUTROPHILS ABSOLUTE COUNT (BEAKER) (test 9.20 K/ L 1.78-5.38 ixyo=531) LYMPHOCYTES ABSOLUTE COUNT (BEAKER) (test 1.78 K/ L 1.32-3.57 ahbl=200) MONOCYTES ABSOLUTE COUNT (BEAKER) (test 0.82 K/ L 0.30-0.82 vzln=597) EOSINOPHILS ABSOLUTE COUNT (BEAKER) (test 0.12 K/ L 0.04-0.54 ddaq=952) BASOPHILS ABSOLUTE COUNT (BEAKER) (test 0.04 K/ L 0.01-0.08 jove=479) IMMATURE GRANULOCYTES-RELATIVE PERCENT (BEAKER) 0 % 0-1 (test lgko=4020) EEG MONITORING WITH VIDEO RECORDING EACH 24 [id number] 17:57:00DATE OF TEST : 04/16/2017DATE OF REPORT 04/16/2017 ACC: [id number]: Start time: 08: 42 Stop time: 16:42ICD-10: R56.9CPT Code: 16260TQISJUH: 51 y/o woman with history of epilepsy [...] report.Phoebe Hassan MDEpilepsy Attending EEG AWAKE/ASLEEP AND [id number] 13:27:00Reason for exam:->status epilepticusDATE OF TEST: DATE OF REPORT 04/16/2017 ACC: [id number]-1988Start time: 08:21 Stop time: 08:42ICD-10: R56.9CPT Code: 86463LJGOUIP: 51 y/o woman with history of epilepsy [...] this report.Phoebe Hassan MDEpilepsy Attending HEPATIC FUNCTION [id number] 12:59:00 Test Item Value Reference Range Comments TOTAL PROTEIN (BEAKER) (test 8.0 gm/dL 6.0-8.3 Specimen moderately hemolyzed pxlp=003) ALBUMIN (BEAKER) (test 3.8 g/dL 3.5-5.0 Specimen moderately hemolyzed nidj=1253) BILIRUBIN TOTAL (BEAKER) (test 0.3 mg/dL 0.2-1.2 Specimen moderately hemolyzed jkfz=492) BILIRUBIN DIRECT (BEAKER) 0.1 mg/dL 0.1-0.5 Specimen moderately hemolyzed (test itgk=879) ALKALINE PHOSPHATASE (BEAKER) 79 U/L 40-150 (test jtrq=730) AST (SGOT) (BEAKER) (test 34 U/L 5-34 Specimen moderately hemolyzed cxbl=091) ALT (SGPT) (BEAKER) (test 30 U/L 6-55 Specimen moderately oqbu=958) hemolyzed RAD, CHEST, 1 VIEW, NON [id number] 09:16:00Reason for exam:-> intubatedShould this be performed [...] Doe Verified Date/Time: 04/16/2017 09:16:32 Reading Location: [facility] Radiology Reading Room VITAMIN [id number] 07:31:00 Test Item Value Reference Range Comments VITAMIN B12 (BEAKER) (test zlsb=974) 450 pg/mL 213-816 FOLATE, [id number] 07:31:00 Test Item Value Reference Range Comments FOLATE (BEAKER) (test kgxj=763) 8.0 ng/mL >=7.0 URINALYSIS W/ [id number] 07:09:00 Test Item Value Reference Range Comments COLOR (BEAKER) (test ybxj=065) Light Yellow CLARITY (BEAKER) (test vztn=591) Hazy SPECIFIC GRAVITY UA (BEAKER) (test eggb=525) 1.008 1.001-1.035 PH UA (BEAKER) (test rzro=460) 6.0 5.0-8.0 PROTEIN UA (BEAKER) (test ywtd=416) 20 mg/dL Negative GLUCOSE UA (BEAKER) (test jipg=939) 200 mg/dL Negative KETONES UA (BEAKER) (test uovi=618) Negative Negative BILIRUBIN UA (BEAKER) (test nxzj=050) Negative Negative BLOOD UA (BEAKER) (test hotu=776) Negative Negative NITRITE UA (BEAKER) (test aski=258) Negative Negative LEUKOCYTE ESTERASE UA (BEAKER) (test nblv=139) Negative Negative UROBILINOGEN UA (BEAKER) (test vjea=869) 0.2 mg/dL 0.2-1.0 RBC UA (BEAKER) (test iprl=540) < /HPF WBC UA (BEAKER) (test rkyi=914) 1 /HPF BACTERIA (BEAKER) (test frfd=955) Rare SQUAMOUS EPITHELIAL (BEAKER) (test fpak=587) < /HPF HYALINE CASTS (BEAKER) (test jgsq=606) 8 /LPF SOURCE(BEAKER) (test hlmj=0308) [id number] 05:59:00 Test Item Value Reference Range Comments MAGNESIUM (BEAKER) (test 3.0 mg/dL 1.6-2.6 Specimen moderately hemolyzed oysp=280) [id number] 05:59:00 Test Item Value Reference Range Comments PHOSPHORUS (BEAKER) (test 3.0 mg/dL 2.3-4.7 Specimen moderately hemolyzed lnie=046) BASIC METABOLIC [id number] 05:59:00 Test Item Value Reference Range Comments SODIUM (BEAKER) (test 137 meq/L 136-145 flxe=595) POTASSIUM (BEAKER) (test 3.8 meq/L 3.5-5.1 Specimen moderately obhy=483) hemolyzed CHLORIDE (BEAKER) (test 99 meq/L 98-107 omiv=808) CO2 (BEAKER) (test 23 meq/L 22-29 ofex=683) BLOOD UREA NITROGEN 14 mg/dL 7-21 (BEAKER) (test osjb=715) CREATININE (BEAKER) (test 1.48 mg/dL 0.57-1.25 Specimen moderately afak=543) hemolyzed GLUCOSE RANDOM (BEAKER) 386 mg/dL 70-105 (test titz=348) CALCIUM (BEAKER) (test 8.0 mg/dL 8.4-10.2 lzjs=996) EGFR (BEAKER) (test 50 mL/min/1.73 sq m ESTIMATED GFR IS NOT olxn=9061) ACCURATE CREATININE CLEARANCE IN PREDICTING GLOMERULAR FILTRATION RATE. ESTIMATED GFR IS NOT APPLICABLE FOR DIALYSIS PATIENTS. PROTHROMBIN [id number] 05:33:00 Test Item Value Reference Range Comments PROTIME (BEAKER) (test tqby=688) 15.7 seconds 11.7-14.7 INR (BEAKER) (test ofnx=437) 1.3 <=5.9 RECOMMENDED COUMADIN/WARFARIN INR THERAPY RANGESSTANDARD DOSE: 2.0 - 3.0 Includes: PROPHYLAXIS forvenous thrombosis, systemic embolization; TREATMENT for venous thrombosis and/or pulmonary embolus.HIGH RISK: Target INR is 2.5-3.5 for patients with mechanical heart valves.BLOOD GAS, [id number] 05:31:00 Test Item Value Reference Range Comments PH ARTERIAL (BEAKER) (test rygt=033) 7.34 7.35-7.45 PCO2 ARTERIAL (BEAKER) (test wuhm=119) 43 mmHg 35-45 PO2 ARTERIAL (BEAKER) (test ygcz=995) 123 mmHg 80-90 O2 SATURATION ARTERIAL (BEAKER) (test ekba=818) 98.2 % 96.0-97.0 HCO3 ARTERIAL (BEAKER) (test xzea=079) 22 mmol/L 21-29 BASE EXCESS ARTERIAL (BEAKER) (test rbbe=466) -3.2 mmol/L -2.0-3.0 PATIENT TEMPERATURE (BEAKER) (test kmwk=2289) 37.2 C FIO2 (BEAKER) (test znme=4438) 60.0 % CBC W/PLT COUNT & AUTO [id number] 05:08:00 Test Item Value Reference Range Comments WHITE BLOOD CELL COUNT (BEAKER) (test rnme=412) 16.2 K/ L 3.5-10.5 RED BLOOD CELL COUNT (BEAKER) (test ncfe=226) 4.53 M/ L 4.63-6.08 HEMOGLOBIN (BEAKER) (test ksml=950) 14.9 GM/DL 13.7-17.5 HEMATOCRIT (BEAKER) (test xnrb=173) 43.7 % 40.1-51.0 MEAN CORPUSCULAR VOLUME (BEAKER) (test zkas=631) 96.5 fL 79.0-92.2 MEAN CORPUSCULAR HEMOGLOBIN (BEAKER) (test 32.9 pg 25.7-32.2 fump=041) MEAN CORPUSCULAR HEMOGLOBIN CONC (BEAKER) (test 34.1 GM/DL 32.3-36.5 hzbs=189) RED CELL DISTRIBUTION WIDTH (BEAKER) (test 13.2 % 11.6-14.4 gdtr=298) PLATELET COUNT (BEAKER) (test hmrw=232) 127 K/CU MM 150-450 MEAN PLATELET VOLUME (BEAKER) (test yqbp=944) 10.0 fL 9.4-12.4 NUCLEATED RED BLOOD CELLS (BEAKER) (test 0 /100 WBC 0-0 vwjf=296) NEUTROPHILS RELATIVE PERCENT (BEAKER) (test 84 % rfcr=163) LYMPHOCYTES RELATIVE PERCENT (BEAKER) (test 7 % uzdm=271) MONOCYTES RELATIVE PERCENT (BEAKER) (test 9 % lfeg=734) EOSINOPHILS RELATIVE PERCENT (BEAKER) (test 0 % wmmc=706) BASOPHILS RELATIVE PERCENT (BEAKER) (test 0 % eoqk=780) NEUTROPHILS ABSOLUTE COUNT (BEAKER) (test 13.58 K/ L 1.78-5.38 hcck=690) LYMPHOCYTES ABSOLUTE COUNT (BEAKER) (test 1.06 K/ L 1.32-3.57 xnbc=502) MONOCYTES ABSOLUTE COUNT (BEAKER) (test 1.38 K/ L 0.30-0.82 mppa=827) EOSINOPHILS ABSOLUTE COUNT (BEAKER) (test 0.01 K/ L 0.04-0.54 vnph=044) BASOPHILS ABSOLUTE COUNT (BEAKER) (test 0.02 K/ L 0.01-0.08 bmsl=826) IMMATURE GRANULOCYTES-RELATIVE PERCENT (BEAKER) 1 % 0-1 (test sbua=1810)
[2019-02-16 20:33] LABS: Absolute Lymphocytes (CBC) 2.3 K/uL (0.7-4.9); Basophils % 1.2 % (0-1.3); Hematocrit 42.7 % (39.6-49.0); Lymphocytes % 15.4 % (15.3-44.8); MPV 7.7 fL (7.6-11.3); RBC Red Blood Cell Count 4.36 M/uL (4.33-5.43)
[2019-02-16 20:49] LABS: Albumin 3.7 g/dL (3.4-5.0); Bilirubin Total 0.4 mg/dL (0.2-1.0); Potassium 3.8 mmol/L (3.5-5.1); Protein, Total 9.3 g/dL (6.4-8.2)
[2019-02-16] MEDS ORDERED: NA CHLORIDE 0.9% 1,000 ML ONE (21:03)
[2019-02-16] MEDS ORDERED: ONDANSETRON 4 MG/2 ML VIAL ONE (21:03)
[2019-02-16] MEDS ORDERED: MORPHINE 4 MG/ML SYR ONE (21:03)
--- NOTE | 2019-02-16 21:33 | ER ---
Nurse's Notes [facility] Name: Karlos Leblanc Age: 53 yrs Sex: Male : 1965 Arrival Date: 02/16/2019 Time: 18:22 Bed 14 Private MD: None, None Diagnosis: Acute kidney failure, unspecified;Open wound of foot Presentation: 02/16 18:38 Presenting complaint: Patient states: I had sx with Dr stephenson about a week and a half la1 ago on my left foot. I stubbed my foot last night and it is has not stopped bleeding still. Transition of care: patient was not received from another setting of care. Onset of symptoms was February 16, 2019. Risk Assessment: Do you want to hurt yourself or someone else? Patient reports no desire to harm self or others. Initial Sepsis Screen: Does the patient meet any 2 criteria? No. Patient's initial sepsis screen is negative. Does the patient have a suspected source of infection? No. Patient's initial sepsis screen is negative. Care prior to arrival: None. 18:38 Method Of Arrival: Ambulatory la1 18:38 Acuity: KENIA 4 la1 Historical: - Allergies: 18:39 NKDA; la1 - PMHx: 18:39 ADD/ADHD; CHF; COPD; CVA; Myocardial infarction; PVD; Seizures; skin cancer; la1 - Immunization history:: Adult Immunizations up to date. - Social history:: Smoking status: unknown. - Ebola Screening: : No symptoms or risks identified at this time. Screenin:10 Abuse screen: Denies threats or abuse. Nutritional screening: No deficits noted. jb4 Tuberculosis screening: No symptoms or risk factors identified. Fall Risk IV access (20 points). Total Mota Fall Scale indicates No Risk (0-24 pts). Assessment: 19:10 General: Appears in no apparent distress. uncomfortable, Behavior is calm, cooperative, jb4 appropriate for age. Pain: Complains of pain in left foot, headache. Pain does not radiate. Pain currently is 9 out of 10 on a pain scale. Quality of pain is described as throbbing. Neuro: Level of Consciousness is awake, alert, obeys commands, Oriented to person, place, time, situation. Cardiovascular: Patient's skin is warm and dry. Respiratory: Airway is patent Respiratory effort is even, unlabored, Respiratory pattern is regular, symmetrical. GI: Reports nausea. : No deficits noted. No signs and/or symptoms were reported regarding the genitourinary system. EENT: No deficits noted. No signs and/or symptoms were reported regarding the EENT system. Derm: Skin is pink, warm \T\ dry. Surgical wound to the left foot. Musculoskeletal: Circulation, motion, and sensation intact. Range of motion: intact in all extremities. 20:00 Reassessment: Patient appears in no apparent distress at this time. Patient and/or jb4 family updated on plan of care and expected duration. Pain level reassessed. Patient is alert, oriented x 3, equal unlabored respirations, skin warm/dry/pink. Patient states feeling better. 21:00 Reassessment: Patient appears in no apparent distress at this time. Patient and/or jb4 family updated on plan of care and expected duration. Pain level reassessed. Patient is alert, oriented x 3, equal unlabored respirations, skin warm/dry/pink. Left foot wrapped. 22:00 Reassessment: Patient appears in no apparent distress at this time. Patient and/or jb4 family updated on plan of care and expected duration. Pain level reassessed. Patient is alert, oriented x 3, equal unlabored respirations, skin warm/dry/pink. 23:27 Reassessment: report given to Víctor VO. jd3 Vital Signs: 18:39 Pulse 102; Resp 16; Temp 97.4; Pulse Ox 100% on R/A; Weight 71.21 kg; Height 6 ft. 1 la1 in. (185.42 cm); 18:41 BP 169 / 83; la1 20:00 BP 147 / 71; Pulse 87; Resp 16; Pulse Ox 100% on R/A; jb4 21:00 BP 141 / 85; Pulse 77; Resp 16; Pulse Ox 100% on R/A; jb4 22:00 BP 149 / 87; Pulse 81; Resp 16; Pulse Ox 100% on R/A; jb4 23:30 BP 155 / 79; Pulse 73; Resp 16; Pulse Ox 99% on R/A; jb4 18:39 Body Mass Index 20.71 (71.21 kg, 185.42 cm) la1 ED Course: 18:22 Patient arrived in ED. ag5 18:23 None, None is Private Physician. ag5 18:39 Triage completed. la1 18:40 Arm band placed on right wrist. la1 19:10 Patient has correct armband on for positive identification. Bed in low position. Call jb4 light in reach. Side rails up X 1. Pulse ox on. NIBP on. 19:34 J Carlos Parada MD is Attending Physician. tw4 19:35 Jason Cabrera, TAVO is Primary Nurse. jb4 20:23 Missed attempt(s): 20 gauge in right wrist. Bleeding controlled, band aid applied, jb5 catheter tip intact. 20:24 Missed attempt(s): 20 gauge in left Bleeding controlled, band aid applied, catheter tip jb5 intact. 20:24 Inserted saline lock: 22 gauge in left forearm, using aseptic technique. Blood jb5 collected. 21:32 Abner Mota DO is Hospitalizing Provider. tw4 23:45 No provider procedures requiring assistance completed. Patient admitted, IV remains in jb4 place. Administered Medications: 21:00 Drug: Zofran 4 mg Route: IVP; Site: left forearm; 4 21:30 Follow up: Response: No adverse reaction; Nausea is decreased jb4 21:02 Drug: morphine 4 mg {Note: Rass score 0.} Route: IVP; Site: left forearm; [facility] 21:30 Follow up: Response: No adverse reaction; Pain is decreased; RASS: Alert and Calm (0) 4 21:05 Drug: NS 0.9% 1000 ml Route: IV; Rate: 125 ml/hr; Site: left forearm; [facility] 23:39 Follow up: Response: No adverse reaction; IV Status: Infusion continued upon admission jb4 22:07 CANCELLED (Physician Discretion): Zosyn 2.25 grams IVPB once over 60 mins; (mix in NS tw4 100 mL) 22:28 Drug: Cefepime 1 grams Route: IVPB; Rate: 200 ml/hr; Infused Over: 30 mins; Site: left jb4 forearm; 22:58 Follow up: Response: No adverse reaction; IV Status: Completed infusion; IV Intake: jb4 100ml 23:19 Drug: vancoMYCIN 1 grams Route: IVPB; Infused Over: 2 hrs; Site: right antecubital; [facility] 23:38 Follow up: Response: No adverse reaction; IV Status: Infusion continued upon admission jb4 Intake: 22:58 IV: 100ml; Total: 100ml. jb4 Outcome: 21:33 Decision to Hospitalize by Provider. tw4 23:45 Admitted to Tele accompanied by tech, via wheelchair, room 426, with chart, Report jb4 called to TAVO Renee 23:45 Condition: stable 23:45 Discharge instructions given to patient, Instructed on the need for admit, Demonstrated understanding of instructions. 23:46 Patient left the ED. jb4 Signatures: Jose Cochran, RN RN la1 Jason Cabrera RN RN jb4 Catalina Rutledge jb5 Gordy Dyer RN RN jd3 J Carlos Parada MD MD tw4 Jorge Taylor [facility]
--- NOTE | 2019-02-16 21:34 | EDPHYS ---
Physician Documentation [facility] Name: Karlos Leblanc Age: 53 yrs Sex: Male : 1965 Arrival Date: 02/16/2019 Time: 18:22 Bed 14 Private MD: None, None ED Physician J Carlos Parada HPI: 02/17 05:44 This 53 yrs old Male presents to ER via Ambulatory with complaints of tw4 Puncture Wound To Foot, Foot Bleeding. 05:44 The patient presents with a contusion, pain, that is acute. The complaints affect the tw4 left foot. Context: The problem was sustained at home, resulted from a mis-step by the patient. Onset: The symptoms/episode began/occurred 2 day(s) ago. Modifying factors: The symptoms are alleviated by nothing, the symptoms are aggravated by movement, wearing shoes. Severity of symptoms: At their worst the symptoms were moderate, in the emergency department the symptoms are unchanged. The patient has not experienced similar symptoms in the past. Historical: - Allergies: 02/16 18:39 NKDA; la1 - PMHx: 18:39 ADD/ADHD; CHF; COPD; CVA; Myocardial infarction; PVD; Seizures; skin cancer; la1 - Immunization history:: Adult Immunizations up to date. - Social history:: Smoking status: unknown. - Ebola Screening: : No symptoms or risks identified at this time. ROS: 02/17 05:44 MS/extremity: Positive for pain, swelling, tenderness. tw4 Constitutional: Negative for fever, chills, and weight loss, Eyes: Negative for injury, pain, redness, and discharge, Cardiovascular: Negative for chest pain, palpitations, and edema, Respiratory: Negative for shortness of breath, cough, wheezing, and pleuritic chest pain, Abdomen/GI: Negative for abdominal pain, nausea, vomiting, diarrhea, and constipation, : Negative for injury, bleeding, discharge, and swelling, Skin: Negative for injury, rash, and discoloration, Neuro: Negative for headache, weakness, numbness, tingling, and seizure. Exam: 05:44 Constitutional: This is a well developed, well nourished patient who is awake, alert, tw4 and in no acute distress. Head/Face: Normocephalic, atraumatic. Chest/axilla: Normal chest wall appearance and motion. Nontender with no deformity. No lesions are appreciated. Cardiovascular: Regular rate and rhythm with a normal S1 and S2. No gallops, murmurs, or rubs. Normal PMI, no JVD. No pulse deficits. Respiratory: Lungs have equal breath sounds bilaterally, clear to auscultation and percussion. No rales, rhonchi or wheezes noted. No increased work of breathing, no retractions or nasal flaring. Abdomen/GI: Soft, non-tender, with normal bowel sounds. No distension or tympany. No guarding or rebound. No evidence of tenderness throughout. Back: No spinal tenderness. No costovertebral tenderness. Full range of motion. 05:44 Musculoskeletal/extremity: Extremities: tenderness, open wound with necrotic tissue left midfoot s/p amputation, Perfusion: the extremity is warm, Sensation intact. 05:44 Skin: Wound recheck: Suture laceration closure: mild drainage, moderate dehiscence. Vital Signs: 02/16 18:39 Pulse 102; Resp 16; Temp 97.4; Pulse Ox 100% on R/A; Weight 71.21 kg; Height 6 ft. 1 la1 in. (185.42 cm); 18:41 BP 169 / 83; la1 20:00 BP 147 / 71; Pulse 87; Resp 16; Pulse Ox 100% on R/A; jb4 21:00 BP 141 / 85; Pulse 77; Resp 16; Pulse Ox 100% on R/A; jb4 22:00 BP 149 / 87; Pulse 81; Resp 16; Pulse Ox 100% on R/A; jb4 23:30 BP 155 / 79; Pulse 73; Resp 16; Pulse Ox 99% on R/A; jb4 18:39 Body Mass Index 20.71 (71.21 kg, 185.42 cm) la1 MDM: 19:34 Patient medically screened. tw4 02/17 05:44 Differential diagnosis: fracture, gout. Data reviewed: vital signs, nurses notes. Data tw4 reviewed: lab test result(s), CBC, white blood cell count, hemoglobin, hematocrit, platelets, electrolytes, sodium, potassium, chloride, serum bicarbonate, BUN, creatinine, serum glucose. Data interpreted: Pulse oximetry: Interpretation: normal. Counseling: I had a detailed discussion with the patient and/or guardian regarding: the historical points, exam findings, and any diagnostic results supporting the discharge/admit diagnosis, lab results. Physician consultation: Abner Mota DO regarding admission, to the medical/surgical unit. patient's condition, need to come to ED to see patient, and will see patient in ED. 02/16 20:08 Order name: CBC with Diff; Complete Time: 21:21 tw4 02/16 21:20 Interpretation: Normal except: WBC 14.8; RBC 4.36; HGB 14.5; HCT 42.7; NERY% 75.1; PLT tw4 361; NEUT A 11.1. 02/16 20:08 Order name: CMP; Complete Time: 21:21 tw4 02/16 21:20 Interpretation: Normal except: NA 135; CO2 19; CRE 1.78; GFR 40. tw4 Administered Medications: 02/16 21:00 Drug: Zofran 4 mg Route: IVP; Site: left forearm; jb4 21:30 Follow up: Response: No adverse reaction; Nausea is decreased jb4 21:02 Drug: morphine 4 mg {Note: Rass score 0.} Route: IVP; Site: left forearm; jb4 21:30 Follow up: Response: No adverse reaction; Pain is decreased; RASS: Alert and Calm (0) jb4 21:05 Drug: NS 0.9% 1000 ml Route: IV; Rate: 125 ml/hr; Site: left forearm; jb4 23:39 Follow up: Response: No adverse reaction; IV Status: Infusion continued upon admission jb4 22:07 CANCELLED (Physician Discretion): Zosyn 2.25 grams IVPB once over 60 mins; (mix in NS tw4 100 mL) 22:28 Drug: Cefepime 1 grams Route: IVPB; Rate: 200 ml/hr; Infused Over: 30 mins; Site: left jb4 forearm; 22:58 Follow up: Response: No adverse reaction; IV Status: Completed infusion; IV Intake: jb4 100ml 23:19 Drug: vancoMYCIN 1 grams Route: IVPB; Infused Over: 2 hrs; Site: right antecubital; jb4 23:38 Follow up: Response: No adverse reaction; IV Status: Infusion continued upon admission jb4 Disposition: 02/16/19 21:33 Hospitalization ordered by Abner Mota for Inpatient Admission. Preliminary diagnosis are Acute kidney failure, unspecified, Open wound of foot. - Bed requested for Telemetry/MedSurg (Inpatient). - Status is Inpatient Admission. jb4 - Condition is Stable. - Problem is new. - Symptoms have improved. UTI on Admission? No Signatures: Dispatcher [employer] EDMS Jose Cochran RN RN la1 Minerva Ferreira RN RN Jason Cabrera RN RN jb4 J Carlos Parada MD MD tw4 Corrections: (The following items were deleted from the chart) 22: 21:30 Zosyn 2.25 grams IVPB once over 60 mins; (mix in NS 100 mL) ordered. 22:07 22:07 Zosyn 2.25 grams IVPB once over 60 mins; (mix in NS 100 mL) ordered. tw4 22:32 21:33 Hospitalization Ordered by Abner Mota DO for Inpatient Admission. Preliminary cg diagnosis is Acute kidney failure, unspecified; Open wound of foot. Bed requested for Telemetry/MedSurg (Inpatient). Status is Inpatient Admission. Condition is Stable. Problem is new. Symptoms have improved. UTI on Admission? No. tw4 23:46 22:32 02/16/2019 21:33 Hospitalization Ordered by Abner Mota DO for Inpatient jb4 Admission. Preliminary diagnosis is Acute kidney failure, unspecified; Open wound of foot. Bed requested for Telemetry/MedSurg (Inpatient). Status is Inpatient Admission. Condition is Stable. Problem is new. Symptoms have improved. UTI on Admission? No. cg
[2019-02-16] MEDS ORDERED: PIPER/TAZO/NS 2.25gm 0 GM/0 ML BAG ONE (21:59)
[2019-02-16] MEDS ORDERED: VANCOMYCIN 1 GM/VIAL ONE (22:21)
[2019-02-16] MEDS ORDERED: CEFEPIME 1 GM/100 ML BAG IV ONE (22:21)
[2019-02-16] MEDS ORDERED: NA CHLORIDE 0.9% 250 ML ONE (22:21)
--- NOTE | 2019-02-16 22:35 | P.HP ---
Certification for Inpatient Patient admitted to: Inpatient With expected LOS: >2 Midnights Patient will require the following post-hospital care: Home Health Services Practitioner: I am a practitioner with admitting privileges, knowledge of patient current condition, hospital course, and medical plan of care. Services: Services provided to patient in accordance with Admission requirements found in Title 42 Section 412.3 of the Code of Federal Regulations Patient History Date of Service: 02/16/19 Primary Care Provider: none; Surgery-Dr. Burroughs Reason for admission: Left foot pain History of Present Illness: 53-year-old male presented to the emergency room with increasing left foot pain. Patient was hospitalized February 06 through the . Patient presented with osteomyelitis of the left foot. Patient had left partial foot amputation on February 07. Patient did well on that hospitalization. He was sent home with antibiotics and wound care with home health. Patient with underlying hypertension, COPD, CAD with peripheral vascular disease , tobacco abuse, seizure disorder. Patient reports that he bumped his left foot the other day against the kitchen trailer. Since that time he noted increased erythema, pain to the left lower extremity. He also reported some drainage to the left partial foot amputation. Sutures did not appear approximated as prior. Pain increase. He came to the ER for further evaluation. Patient denied any significant fever, chills. No shortness of breath noted. In the ER patient evaluated. White count elevated at 14.8, hemoglobin 14.5. Platelet count of 361. Percent neutrophils 75. Sodium 135, potassium 3.8, BUN of 15, creatinine 1.78 with a GFR 40. Glucose 101. Lactic acid and pro calcitonin pending at this time. Patient was admitted for further evaluation and treatment. Antibiotics initiated in the emergency room. When I saw the patient the ER, pain appeared improved. Patient stable at this time. Patient reports compliance with wound care and antibiotic therapy. Allergies No Known Allergies Allergy (Verified 11/12/17 20:22) Home medications list reviewed: Yes Home Medications: Amlodipine [Norvasc*] 10 mg PO DAILY 02/06/19 Atorvastatin Calcium [Lipitor] 40 mg PO DAILY 02/06/19 Levetiracetam [Keppra] 1,000 mg PO DAILY 02/06/19 Ciprofloxacin HCl [Cipro 500 MG Tablet] 500 mg PO BID #28 tab 02/10/19 Doxycycline Hyclate 100 mg PO BID #28 capsule 02/10/19 - Past Medical/Surgical History Diabetic: No -: HTN -: CHF, diastolic dysfunction -: COPD -: CAD -: PVD -: Left partial foot amputation -: History of osteomyelitis -: History of drug use -: Alcohol abuse -: Tobacco abuse -: GERD -: Rt great toe & 2nd toe amputated-Dec 2015 -: Left partial foot amputation-January 2019 Psychosocial/ Personal History: Patient currently lives in a trailer - Family History Family History: Reviewed- Non-Contributory - Social History Smoking Status: Heavy Tobacco smoker (>10 cigarettes/day) Counseled patient to stop smoking for: less than 10 minutes Smoking therapy provided: Yes Patient receptive to therapy: Yes Alcohol use: Yes CD- Drugs: No Caffeine use: Yes Place of Residence: Home Review of Systems General: As per HPI Eyes: Unremarkable ENT: Unremarkable Respiratory: Unremarkable Cardiovascular: Unremarkable Gastrointestinal: Unremarkable Genitourinary: Unremarkable Musculoskeletal: As per HPI Integumentary: As per HPI Neurological: Unremarkable Lymphatics: Unremarkable Physical Examination - Physical Exam General: Alert, In no apparent distress, Oriented x3, Cooperative HEENT: Atraumatic, Normocephalic, Mucous membr. moist/pink Neck: Supple, No Thyromegaly Respiratory: Clear to auscultation bilaterally, Normal air movement Cardiovascular: Normal pulses, Regular rate/rhythm Gastrointestinal: Normal bowel sounds, Soft and benign, Non-distended, No tenderness, No masses, No rebound, No guarding Musculoskeletal: No contractures Integumentary: Other (Patient status post left partial foot amputation. Erythema, mild swelling noted to the foot and just above the ankle region. Sutures to the wound site appear less approximated. Dried blood noted. No significant pus or drainage noted. Pain with palpation to the foot noted) Neurological: Normal speech, Normal strength at 5/5 x4 extr, Normal tone, Normal affect - Studies Laboratory Data (last 24 hrs) 02/16/19 20:22: Sodium 135 L, Potassium 3.8, BUN 15, Creatinine 1.78 H, Glucose 101, Total Bilirubin 0.4, AST 15, ALT 17, Alkaline Phosphatase 76 02/16/19 20:22: WBC 14.8 H D, Hgb 14.5 D, Hct 42.7 D, Plt Count 361 D Assessment and Plan - Plan Impression: Left lower extremity cellulitis status post recent left foot partial amputation for osteomyelitis Acute renal injury suspect dehydration Peripheral vascular disease Hypertension COPD Tobacco abuse GERD Seizure disorder Chronic pain with neuropathy Plan: Left lower extremity cellulitis status post recent left foot partial amputation for osteomyelitis: Patient will be admitted for further evaluation and treatment. IV antibiotic therapy-vancomycin and cefepime initiated. Will obtain lactic acid and pro calcitonin. Patient does not appear septic at this time. Will keep the patient NPO after midnight as the patient may require surgical debridement. Surgery consulted. Await recommendation. Pharmacy to monitor and adjust medication. Will provide DVT prophylaxis-Lovenox. Resume home medication. Will provide medication for pain. Patient will need a continue with home health at discharge. Daytime hospitalist will continue his care. Anticipate discharge in the next 3-5 days with clinical improvement. Acute renal injury suspect dehydration: IV fluids initiated. Will monitor and adjust appropriately. Replacement protocol in place. Peripheral vascular disease: Continue with Plavix 75 mg daily. Patient on DVT prophylaxis-Lovenox. Hypertension: Continue with home medication Norvasc 10 mg daily and lisinopril 10 mg daily. Will monitor and adjust accordingly. COPD: Continue with COPD medication-Brovana, albuterol, Atrovent. Tobacco abuse: Tobacco cessation addressed in detail. Will provide nicotine GERD: Continue with Protonix 40 mg daily. Seizure disorder: Continue with home medication Keppra 1000 mg daily. Chronic pain with neuropathy: Continue Neurontin 200 mg 1 pill 3 times a day. Will continue with other pain medication as needed. Discharge Plan: Home Plan to discharge in: Greater than 2 days - Advance Directives Does patient have a Living Will: No Does patient have a Durable POA for Healthcare: Yes - Code Status/Comfort Care Code Status Assessed: Yes (Patient is full code) Time Spent Managing Pts Care (In Minutes): 55
[2019-02-17 00:01] VITALS: BMI 23.3
[2019-02-17] MEDS ORDERED: ACETAMINOPHEN 500 MG TAB PO PRN (00:01)
[2019-02-17] MEDS: NA CHLORIDE 0.9% 1,000 ML IV SCH ×3 (00:01→17:11)
[2019-02-17] MEDS ORDERED: ONDANSETRON 4 MG/2 ML VIAL IV PRN (00:01)
[2019-02-17] MEDS ORDERED: ALBUTEROL 2.5 MG/3 ML NEB SOL NEB PRN (00:01)
[2019-02-17 01:42] LABS: Urine Appearance CLOUDY; Urine Blood NEGATIVE (NEG); Urine Color DK YELLOW; Urine Glucose NEGATIVE (NEG); Urine Protein 1+ (NEG); Urine Specific Gravity 1.025 (1.005-1.030); Urine Urobilinogen 0.2 mg/dL (0.2-1.0); Urine pH 5.5 (5.0-7.0)
[2019-02-17 01:47] LABS: Urine Bilirubin NEGATIVE (NEG); Urine Microscopic Reflex ORDER UMIC
[2019-02-17] MEDS: HYDROCODONE/APAP 7.5/325 MG TAB PO PRN ×2 (02:00→21:30)
[2019-02-17 02:10] LABS: Calcium Oxalate Crystals- Ur FEW (NONE SEEN); Urine Bacteria 20-50 /HPF (NONE SEEN); Urine Culture Reflex Order REFLEXED; Urine Mucus 2+ /HPF (NONE SEEN); Urine RBC <5 /HPF (NONE SEEN)
[2019-02-17 06:17] LABS: Absolute Lymphocytes (CBC) 2.3 K/uL (0.7-4.9); MPV 7.6 fL (7.6-11.3)
[2019-02-17] MEDS: PANTOPRAZOLE 40MG TABLET PO SCH (06:30)
[2019-02-17 06:32] LABS: Magnesium 2.6 mg/dL (1.8-2.4); Potassium 3.8 mmol/L (3.5-5.1)
[2019-02-17] MEDS: IPRATROPIUM BROM 0.5MG/2.5ML NEB PRN (07:30)
[2019-02-17] MEDS: ARFORMOTEROL TARTRATE 15 MCG/2 ML VIAL.NEB NEB SCH ×3 (07:30→20:00)
[2019-02-17] MEDS: NICOTINE 21 MG/PAT TD SCH (08:36)
[2019-02-17] MEDS: GABAPENTIN 100 MG CAP PO SCH ×3 (08:37→21:30)
[2019-02-17] MEDS: AMLODIPINE 10 MG TAB PO SCH (08:37)
[2019-02-17] MEDS: LISINOPRIL 10 MG TAB PO SCH (08:37)
[2019-02-17] MEDS: levETIRAcetam 500 MG TAB PO SCH (08:37)
[2019-02-17] MEDS: ENOXAPARIN 40 MG/0.4 ML SQ SCH ×2 (08:38→15:42)
[2019-02-17] MEDS: CLOPIDOGREL 75 MG TABLET PO SCH ×2 (08:38→15:42)
[2019-02-17] MEDS ORDERED: CEFEPIME 1 GM/VIAL IV SCH (09:00)
[2019-02-17] MEDS: CEFEPIME/SWI 1gm 10 ML IV SCH ×2 (09:53→21:31)
[2019-02-17] MEDS ORDERED: LIDOCAINE 1% MPF 5 ML VIAL ONE (10:26)
[2019-02-17] MEDS ORDERED: FENTANYL CITR 100 MCG/2 ML ONE (10:26)
[2019-02-17] MEDS ORDERED: PROPOFOL 200 MG/20 ML VIAL IV ONE (10:26)
[2019-02-17] MEDS ORDERED: MIDAZOLAM HCL 2 MG/2 ML INJ ONE (10:27)
[2019-02-17] MEDS: Ringers Lactate 1,000 ML IV ONE (10:50)
[2019-02-17] MEDS: VANCOMYCIN 1.5 GM in NA CHLORIDE 0.9% 500 ML IVPB SCH ×2 (11:23→11:25)
[2019-02-17] MEDS: COLLAGENASE 30 GM OINTMENT TOP ONE ×2 (11:38→11:44)
--- NOTE | 2019-02-17 11:47 | P.OP ---
Preoperative diagnosis: Infected Wound Left Foot Postoperative diagnosis: same Primary procedure: Debridement Left Foot Wound to sq,mm, and bone 11x4cm Anesthesia: gen Estimated blood loss: min Specimen: c&s Findings: as above Complications: None Transferred to: Recovery Room Condition: Good
[2019-02-17] MEDS ORDERED: POTASSIUM 25 MEQ EFFERV TAB PO ONE (12:00)
--- NOTE | 2019-02-17 12:17 | P.PN ---
Subjective Date of Service: 02/17/19 Primary Care Provider: none; Surgery-Dr. Burroughs Chief Complaint: Left foot pain Patient seen and examined at bedside with RN. Chart reviewed. Case discussed with general surgery. Currently NPO for surgical debridement today. Review of Systems 10-point ROS is otherwise unremarkable Physical Examination - Vital Signs Temperature: 97.8 F Blood Pressure: 74/45 Pulse: 54 Respirations: 16 Pulse Ox (%): 100 - Physical Exam General: Alert, In no apparent distress HEENT: Atraumatic, PERRLA, EOMI Neck: Supple, JVD not distended Respiratory: Clear to auscultation bilaterally, Normal air movement Cardiovascular: Regular rate/rhythm, Normal S1 S2 Gastrointestinal: Normal bowel sounds, No tenderness Musculoskeletal: Erythema, Tenderness, Warmth Integumentary: No rashes Neurological: Normal speech, Normal tone, Normal affect Lymphatics: No axilla or inguinal lymphadenopathy - Studies Laboratory Data (last 24 hrs) 02/16/19 20:22: Sodium 135 L, Potassium 3.8, BUN 15, Creatinine 1.78 H, Glucose 101, Total Bilirubin 0.4, AST 15, ALT 17, Alkaline Phosphatase 76 02/16/19 20:22: WBC 14.8 H D, Hgb 14.5 D, Hct 42.7 D, Plt Count 361 D Medications List Reviewed: Yes Assessment And Plan - Current Problems (Diagnosis) (1) Cellulitis Onset Date: 11/12/17 Current Visit: No Status: Resolved Plan: Left lower extremity cellulitis status post recent left foot partial amputation for osteomyelitis -currently started on IV antibiotic therapy-vancomycin and cefepime -blood culture and wound cultures were collected at this time pending -surgery consulted. Recommendations appreciated -NPO after midnight for surgical debridement today -will followup post procedure -monitor patient here in the hospital at this time Qualifiers: Site of cellulitis: extremity Site of cellulitis of extremity: lower extremity Laterality: left Qualified Code(s): L03.116 - Cellulitis of left lower limb (2) CAD (coronary artery disease) Onset Date: 03/15/17 Current Visit: No Status: Chronic Qualifiers: Coronary Disease-Associated Artery/Lesion type: [place] artery [place] vs. transplanted heart: [place] heart Associated angina: without angina Qualified Code(s): I25.10 - Atherosclerotic heart disease of [place] coronary artery without angina pectoris (3) CHF (congestive heart failure) Onset Date: 03/15/17 Current Visit: No Status: Chronic (4) COPD (chronic obstructive pulmonary disease) Onset Date: 03/15/17 Current Visit: No Status: Chronic Qualifiers: COPD type: chronic bronchitis Chronic bronchitis type: unspecified Qualified Code(s): J42 - Unspecified chronic bronchitis (5) Hyperlipemia Current Visit: No Status: Chronic Qualifiers: Hyperlipidemia type: unspecified Qualified Code(s): E78.5 - Hyperlipidemia , unspecified (6) Hypertension Onset Date: 01/07/16 Current Visit: No Status: Chronic Qualifiers: Hypertension type: essential hypertension Qualified Code(s): I10 - Essential (primary) hypertension (7) Methamphetamine abuse Onset Date: 03/15/17 Current Visit: No Status: Chronic (8) Nicotine dependence Current Visit: No Status: Chronic Qualifiers: Nicotine product type: cigarettes Substance use status: uncomplicated Qualified Code(s): F17.210 - Nicotine dependence, cigarettes, uncomplicated (9) PAD (peripheral artery disease) Current Visit: No Status: Chronic - Plan Pending clinical improvement at this time Discharge Plan: Home Plan to discharge in: 48 Hours - Code Status/Comfort Care Code Status Assessed: Yes
[2019-02-17] MEDS ORDERED: HYDROMORPHONE HCL 1 MG/ML INJ ONE (12:18)
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
[2019-02-17] MEDS: ATORVASTATIN 80 MG TAB PO SCH (21:30)
--- NOTE | 2019-02-17 22:20 | OP ---
Date of Procedure: 02/17/2019 Surgeon: Krish Burroughs MD Preoperative Diagnosis: Infected wound, left foot. Postoperative Diagnosis: Infected wound, left foot. Procedure: Debridement of infected wound, left foot, 11 x 4 cm to subcutaneous tissue, muscle, and b one. Estimated Blood Loss: Minimal. Specimen: Bone for culture and sensitivity as well as infected tissue. Findings: As above. Anesthesia: General. Complications: None. Disposition: Patient tolerated the procedure in stable condition, taken to Recovery in good general condition. Description Of Procedure: Patient was brought to the OR and placed in supine position. General anes thesia was begun. Patient was prepped and draped in usual sterile fashion. All the sutures that had from the wound were removed. Then, all necrotic tissue was debrided and there was first m etatarsal bone was exposed, which was debrided with a rongeur, smoothened out with a rasp. Cultures were done both on infected tissue as well as the bone. The wound was irrigated. Bleeding controlled with cautery. Good healthy tissue was obtained and then collagenase wet-to-dry normal saline dressi ng change was applied. Patient tolerated the procedure in stable condition and taken to Recovery in good gener al condition. /MODL Voice ID: [id number] Report ID: [id number]
[2019-02-17] MEDS ORDERED: VANCOMYCIN 1.5 GM in NA CHLORIDE 0.9% 500 ML IVPB SCH (23:00)
[2019-02-17] MEDS: TRAMADOL HCL 50 MG TAB PO PRN (23:31)
[2019-02-18 05:16] LABS: Absolute Lymphocytes (CBC) 2.9 K/uL (0.7-4.9); Basophils % 0.2 % (0-1.3); Hematocrit 35.7 % (39.6-49.0); Lymphocytes % 32.1 % (15.3-44.8); MPV 7.9 fL (7.6-11.3); RBC Red Blood Cell Count 3.64 M/uL (4.33-5.43)
[2019-02-18 05:37] LABS: Magnesium 2.5 mg/dL (1.8-2.4); Potassium 4.5 mmol/L (3.5-5.1)
[2019-02-18] MEDS: NA CHLORIDE 0.9% 1,000 ML IV SCH ×3 (06:01→16:01)
[2019-02-18] MEDS: VANCOMYCIN 1.5 GM in NA CHLORIDE 0.9% 500 ML IVPB SCH ×2 (06:17→22:50)
[2019-02-18] MEDS: HYDROCODONE/APAP 7.5/325 MG TAB PO PRN ×2 (06:18→19:05)
[2019-02-18] MEDS: PANTOPRAZOLE 40MG TABLET PO SCH (06:19)
[2019-02-18] MEDS: ARFORMOTEROL TARTRATE 15 MCG/2 ML VIAL.NEB NEB SCH ×2 (07:39→20:00)
[2019-02-18] MEDS: NICOTINE 21 MG/PAT TD SCH ×2 (09:00→09:08)
[2019-02-18] MEDS: LISINOPRIL 10 MG TAB PO SCH (09:08)
[2019-02-18] MEDS: GABAPENTIN 100 MG CAP PO SCH ×3 (09:09→20:54)
[2019-02-18] MEDS: ENOXAPARIN 40 MG/0.4 ML SQ SCH (09:09)
[2019-02-18] MEDS: levETIRAcetam 500 MG TAB PO SCH (09:09)
[2019-02-18] MEDS: CLOPIDOGREL 75 MG TABLET PO SCH (09:09)
[2019-02-18] MEDS: AMLODIPINE 10 MG TAB PO SCH (09:09)
[2019-02-18] MEDS: TRAMADOL HCL 50 MG TAB PO PRN ×2 (09:10→21:00)
[2019-02-18] MEDS: CEFEPIME/SWI 1gm 10 ML IV SCH ×2 (09:10→20:54)
--- NOTE | 2019-02-18 12:30 | P.PN ---
Subjective Date of Service: 02/18/19 Primary Care Provider: none; Surgery-Dr. Burroughs Chief Complaint: Left foot pain Patient seen and examined at bedside with RN. Chart reviewed. Case discussed with general surgery. Status post surgical debridement. Doing well today. Advised not to go down to smoke. Review of Systems 10-point ROS is otherwise unremarkable Physical Examination - Vital Signs Temperature: 98.2 F Blood Pressure: 114/65 Pulse: 73 Respirations: 16 Pulse Ox (%): 99 - Physical Exam General: Alert, In no apparent distress HEENT: Atraumatic, PERRLA, EOMI Neck: Supple, JVD not distended Respiratory: Clear to auscultation bilaterally, Normal air movement Cardiovascular: Regular rate/rhythm, Normal S1 S2 Gastrointestinal: Normal bowel sounds, No tenderness Musculoskeletal: No tenderness Integumentary: Tenderness/swelling, Erythema, Warmth Neurological: Normal speech, Normal tone, Normal affect Lymphatics: No axilla or inguinal lymphadenopathy - Studies Medications List Reviewed: Yes Assessment And Plan - Current Problems (Diagnosis) (1) Cellulitis Onset Date: 11/12/17 Current Visit: No Status: Resolved Plan: Left lower extremity cellulitis status post recent left foot partial amputation for osteomyelitis -currently started on IV antibiotic therapy-vancomycin and cefepime -blood culture and wound cultures were collected at this time pending -surgery consulted. Recommendations appreciated -S/P surgical debridement POD # 1 -will need wound VAC to the affected area. -monitor patient here in the hospital at this time Qualifiers: Site of cellulitis: extremity Site of cellulitis of extremity: lower extremity Laterality: left Qualified Code(s): L03.116 - Cellulitis of left lower limb (2) CAD (coronary artery disease) Onset Date: 03/15/17 Current Visit: No Status: Chronic Qualifiers: Coronary Disease-Associated Artery/Lesion type: [place] artery [place] vs. transplanted heart: [place] heart Associated angina: without angina Qualified Code(s): I25.10 - Atherosclerotic heart disease of [place] coronary artery without angina pectoris (3) CHF (congestive heart failure) Onset Date: 03/15/17 Current Visit: No Status: Chronic (4) COPD (chronic obstructive pulmonary disease) Onset Date: 03/15/17 Current Visit: No Status: Chronic Qualifiers: COPD type: chronic bronchitis Chronic bronchitis type: unspecified Qualified Code(s): J42 - Unspecified chronic bronchitis (5) Hyperlipemia Current Visit: No Status: Chronic Qualifiers: Hyperlipidemia type: unspecified Qualified Code(s): E78.5 - Hyperlipidemia , unspecified (6) Hypertension Onset Date: 01/07/16 Current Visit: No Status: Chronic Qualifiers: Hypertension type: essential hypertension Qualified Code(s): I10 - Essential (primary) hypertension (7) Methamphetamine abuse Onset Date: 03/15/17 Current Visit: No Status: Chronic (8) Nicotine dependence Current Visit: No Status: Chronic Qualifiers: Nicotine product type: cigarettes Substance use status: uncomplicated Qualified Code(s): F17.210 - Nicotine dependence, cigarettes, uncomplicated (9) PAD (peripheral artery disease) Current Visit: No Status: Chronic - Plan Pending clinical improvement at this time. Continue with IV antibiotics at this time. Will arrange for wound VAC. Will follow up with wound culture here shortly. - Code Status/Comfort Care Code Status Assessed: Yes Critical Care: No
--- NOTE | 2019-02-18 12:36 | PN ---
Date of Progress Note: 02/18/2019 Subjective: Please note, when I went to see the patient, he was not in his room, he was outside smok ing. He has been advised about this in the past, not to do that. He has been given a Nicoderm patch but he still does not follow medical advice. So, therefore I was unable to examine him. Objective: Vital Signs: Stable. Afebrile. Cultures are pending. Assessment: Status post debridement of left foot infected wound. Recommendations: We will order wound VAC and collagenase starting tomorrow. Antibiotics for now and discharge planning. /MODL Voice ID: [id number] Report ID: [id number]
[2019-02-18] MEDS: ATORVASTATIN 80 MG TAB PO SCH (20:54)
[2019-02-19] MEDS: HYDROCODONE/APAP 7.5/325 MG TAB PO PRN ×3 (00:37→22:40)
[2019-02-19] MEDS: NA CHLORIDE 0.9% 1,000 ML IV SCH (02:01)
[2019-02-19] MEDS: PANTOPRAZOLE 40MG TABLET PO SCH (05:30)
[2019-02-19] MEDS: TRAMADOL HCL 50 MG TAB PO PRN ×2 (05:30→13:15)
[2019-02-19 06:13] LABS: Magnesium 2.3 mg/dL (1.8-2.4); Potassium 3.9 mmol/L (3.5-5.1)
[2019-02-19] MEDS ORDERED: POTASSIUM CL SA 10 MEQ TAB PO ONE (06:15)
[2019-02-19 06:26] LABS: Absolute Lymphocytes (CBC) 2.1 K/uL (0.7-4.9); Basophils % 1.2 % (0-1.3); Hematocrit 30.2 % (39.6-49.0); Lymphocytes % 29.9 % (15.3-44.8); MPV 8.2 fL (7.6-11.3); RBC Red Blood Cell Count 3.07 M/uL (4.33-5.43)
[2019-02-19] MEDS: IPRATROPIUM BROM 0.5MG/2.5ML NEB PRN (07:30)
[2019-02-19] MEDS: ARFORMOTEROL TARTRATE 15 MCG/2 ML VIAL.NEB NEB SCH ×2 (07:30→20:00)
[2019-02-19] MEDS: ENOXAPARIN 40 MG/0.4 ML SQ SCH (08:13)
[2019-02-19] MEDS: CEFEPIME/SWI 1gm 10 ML IV SCH ×2 (08:14→22:36)
[2019-02-19] MEDS: levETIRAcetam 500 MG TAB PO SCH (08:15)
[2019-02-19] MEDS: GABAPENTIN 100 MG CAP PO SCH ×3 (08:15→22:37)
[2019-02-19] MEDS: CLOPIDOGREL 75 MG TABLET PO SCH (08:15)
[2019-02-19] MEDS: NICOTINE 21 MG/PAT TD SCH (08:16)
[2019-02-19] MEDS: AMLODIPINE 10 MG TAB PO SCH (08:16)
[2019-02-19] MEDS: LISINOPRIL 10 MG TAB PO SCH (08:16)
--- NOTE | 2019-02-19 12:38 | P.PN ---
Subjective Date of Service: 02/19/19 Primary Care Provider: none; Surgery-Dr. Burroughs Chief Complaint: Left foot pain Patient seen and examined at bedside with RN. Chart reviewed. Case discussed with general surgery. Status post surgical debridement. Doing well today. Advised not to go down to smoke. Review of Systems 10-point ROS is otherwise unremarkable Physical Examination - Vital Signs Temperature: 97.0 F Blood Pressure: 101/58 Pulse: 62 Respirations: 16 Pulse Ox (%): 98 - Physical Exam General: Alert, In no apparent distress HEENT: Atraumatic, PERRLA, EOMI Neck: Supple, JVD not distended Respiratory: Clear to auscultation bilaterally, Normal air movement Cardiovascular: Regular rate/rhythm, Normal S1 S2 Gastrointestinal: Normal bowel sounds, No tenderness Musculoskeletal: Erythema, Tenderness, Warmth Integumentary: No rashes Neurological: Normal speech, Normal tone, Normal affect Lymphatics: No axilla or inguinal lymphadenopathy - Studies Medications List Reviewed: Yes Assessment And Plan - Current Problems (Diagnosis) (1) Cellulitis Onset Date: 11/12/17 Current Visit: No Status: Resolved Plan: Left lower extremity cellulitis status post recent left foot partial amputation for osteomyelitis -On IV antibiotic therapy-vancomycin and cefepime will be needed for total of 6 weeks for osteomyelitis -blood culture and wound cultures were collected. culture + ecoli -surgery consulted. Recommendations appreciated -S/P surgical debridement POD # 2 -wound VAC to the affected area. -monitor patient here in the hospital at this time -LTAC placement Qualifiers: Site of cellulitis: extremity Site of cellulitis of extremity: lower extremity Laterality: left Qualified Code(s): L03.116 - Cellulitis of left lower limb (2) CAD (coronary artery disease) Onset Date: 03/15/17 Current Visit: No Status: Chronic Qualifiers: Coronary Disease-Associated Artery/Lesion type: [place] artery [place] vs. transplanted heart: [place] heart Associated angina: without angina Qualified Code(s): I25.10 - Atherosclerotic heart disease of [place] coronary artery without angina pectoris (3) CHF (congestive heart failure) Onset Date: 03/15/17 Current Visit: No Status: Chronic (4) COPD (chronic obstructive pulmonary disease) Onset Date: 03/15/17 Current Visit: No Status: Chronic Qualifiers: COPD type: chronic bronchitis Chronic bronchitis type: unspecified Qualified Code(s): J42 - Unspecified chronic bronchitis (5) Hyperlipemia Current Visit: No Status: Chronic Qualifiers: Hyperlipidemia type: unspecified Qualified Code(s): E78.5 - Hyperlipidemia , unspecified (6) Hypertension Onset Date: 01/07/16 Current Visit: No Status: Chronic Qualifiers: Hypertension type: essential hypertension Qualified Code(s): I10 - Essential (primary) hypertension (7) Methamphetamine abuse Onset Date: 03/15/17 Current Visit: No Status: Chronic (8) Nicotine dependence Current Visit: No Status: Chronic Qualifiers: Nicotine product type: cigarettes Substance use status: uncomplicated Qualified Code(s): F17.210 - Nicotine dependence, cigarettes, uncomplicated (9) PAD (peripheral artery disease) Current Visit: No Status: Chronic - Plan Pending clinical improvement at this time. Continue with IV antibiotics for total of 6 weeks Will arrange for wound VAC. Patient will need a long-term acute care facility placement at this time. For wound care along with IV antibiotics Discharge Plan: LTAC Plan to discharge in: Greater than 2 days - Code Status/Comfort Care Code Status Assessed: Yes Critical Care: No
--- NOTE | 2019-02-19 14:43 | PN ---
Date of Progress Note: 02/19/2019 Subjective: Patient states that he does not have a home to go back to. He has been evicted. His vi hossein signs are stable. He is afebrile. Cultures were reviewed. He is sensitive to Augmentin as well as other antibiotics. Physical Examination: No significant change. Assessment: Status post debridement of left foot, infected wound. Recommendations: Wound care is ordered. IV antibiotics. Discharge planning LTAC for the time being and follow up in the wound healing center upon discharge. /MODL Voice ID: [id number] Report ID: [id number]
[2019-02-19] MEDS: VANCOMYCIN 1.5 GM in NA CHLORIDE 0.9% 500 ML IVPB SCH (16:29)
[2019-02-19] MEDS ORDERED: CALCIUM CARBONATE CHEW 500MG TAB PO PRN (21:42)
[2019-02-19] MEDS: FAMOTIDINE 20 MG TAB PO SCH (22:36)
[2019-02-19] MEDS: ATORVASTATIN 80 MG TAB PO SCH (22:37)
[2019-02-20] MEDS: PANTOPRAZOLE 40MG TABLET PO SCH (05:13)
[2019-02-20] MEDS: TRAMADOL HCL 50 MG TAB PO PRN (05:14)
[2019-02-20 06:00] LABS: Absolute Lymphocytes (CBC) 2.2 K/uL (0.7-4.9); Basophils % 2.1 % (0-1.3); Hematocrit 33.9 % (39.6-49.0); Lymphocytes % 30.8 % (15.3-44.8); RBC Red Blood Cell Count 3.41 M/uL (4.33-5.43)
[2019-02-20 06:20] LABS: Magnesium 2.3 mg/dL (1.8-2.4)
[2019-02-20] MEDS: ARFORMOTEROL TARTRATE 15 MCG/2 ML VIAL.NEB NEB SCH ×2 (07:37→20:05)
[2019-02-20 07:49] VITALS: O2SAT 98
[2019-02-20] MEDS: CLOPIDOGREL 75 MG TABLET PO SCH (08:18)
[2019-02-20] MEDS: levETIRAcetam 500 MG TAB PO SCH (08:20)
[2019-02-20] MEDS: HYDROCODONE/APAP 7.5/325 MG TAB PO PRN ×3 (08:20→20:35)
[2019-02-20] MEDS: CEFEPIME/SWI 1gm 10 ML IV SCH ×2 (08:20→20:23)
[2019-02-20] MEDS: FAMOTIDINE 20 MG TAB PO SCH ×2 (08:21→20:23)
[2019-02-20] MEDS: NICOTINE 21 MG/PAT TD SCH (08:21)
[2019-02-20] MEDS: LISINOPRIL 10 MG TAB PO SCH (08:24)
[2019-02-20] MEDS: GABAPENTIN 100 MG CAP PO SCH ×3 (08:25→20:23)
[2019-02-20] MEDS: AMLODIPINE 10 MG TAB PO SCH (08:25)
[2019-02-20] MEDS: ENOXAPARIN 40 MG/0.4 ML SQ SCH (08:25)
[2019-02-20] MEDS: VANCOMYCIN 1.5 GM in NA CHLORIDE 0.9% 500 ML IVPB SCH (10:15)
--- NOTE | 2019-02-20 14:14 | P.PN ---
Subjective Date of Service: 02/20/19 Primary Care Provider: none; Surgery-Dr. Burroughs Chief Complaint: Left foot pain Patient seen and examined at bedside with RN. Chart reviewed. Case discussed with general surgery. Status post surgical debridement. Doing well today. Advised not to go down to smoke. Physical Examination - Vital Signs Temperature: 98.3 F Blood Pressure: 117/62 Pulse: 80 Respirations: 16 Pulse Ox (%): 97 - Physical Exam General: Alert, In no apparent distress HEENT: Atraumatic, PERRLA, EOMI Neck: Supple, JVD not distended Respiratory: Clear to auscultation bilaterally, Normal air movement Cardiovascular: Regular rate/rhythm, Normal S1 S2 Gastrointestinal: Normal bowel sounds, No tenderness Musculoskeletal: Erythema, Tenderness, Warmth Integumentary: No rashes, Diabetic ulcer Neurological: Normal speech, Normal tone, Normal affect Lymphatics: No axilla or inguinal lymphadenopathy - Studies Medications List Reviewed: Yes Assessment And Plan - Current Problems (Diagnosis) (1) Cellulitis Onset Date: 11/12/17 Current Visit: No Status: Resolved Plan: Left lower extremity cellulitis status post recent left foot partial amputation for osteomyelitis -On IV antibiotic therapy-vancomycin and cefepime will be needed for total of 6 weeks for osteomyelitis -blood culture and wound cultures were collected. culture + MRSA -surgery consulted. Recommendations appreciated -S/P surgical debridement POD # 3 -wound VAC to the affected area. -monitor patient here in the hospital at this time -LTAC placement Qualifiers: Site of cellulitis: extremity Site of cellulitis of extremity: lower extremity Laterality: left Qualified Code(s): L03.116 - Cellulitis of left lower limb (2) CAD (coronary artery disease) Onset Date: 03/15/17 Current Visit: No Status: Chronic Qualifiers: Coronary Disease-Associated Artery/Lesion type: [place] artery [place] vs. transplanted heart: [place] heart Associated angina: without angina Qualified Code(s): I25.10 - Atherosclerotic heart disease of [place] coronary artery without angina pectoris (3) CHF (congestive heart failure) Onset Date: 03/15/17 Current Visit: No Status: Chronic (4) COPD (chronic obstructive pulmonary disease) Onset Date: 03/15/17 Current Visit: No Status: Chronic Qualifiers: COPD type: chronic bronchitis Chronic bronchitis type: unspecified Qualified Code(s): J42 - Unspecified chronic bronchitis (5) Hyperlipemia Current Visit: No Status: Chronic Qualifiers: Hyperlipidemia type: unspecified Qualified Code(s): E78.5 - Hyperlipidemia , unspecified (6) Hypertension Onset Date: 01/07/16 Current Visit: No Status: Chronic Qualifiers: Hypertension type: essential hypertension Qualified Code(s): I10 - Essential (primary) hypertension (7) Methamphetamine abuse Onset Date: 03/15/17 Current Visit: No Status: Chronic (8) Nicotine dependence Current Visit: No Status: Chronic Qualifiers: Nicotine product type: cigarettes Substance use status: uncomplicated Qualified Code(s): F17.210 - Nicotine dependence, cigarettes, uncomplicated (9) PAD (peripheral artery disease) Current Visit: No Status: Chronic - Plan Pending clinical improvement at this time. Continue with IV antibiotics for total of 6 weeks Will arrange for wound VAC. Patient will need a long-term acute care facility placement at this time. For wound care along with IV antibiotics Discharge Plan: LTAC Plan to discharge in: Greater than 2 days - Code Status/Comfort Care Code Status Assessed: Yes Critical Care: No
[2019-02-20] MEDS: ATORVASTATIN 80 MG TAB PO SCH (20:23)
[2019-02-21] MEDS: HYDROCODONE/APAP 7.5/325 MG TAB PO PRN ×2 (05:02→13:06)
[2019-02-21] MEDS: PANTOPRAZOLE 40MG TABLET PO SCH (05:03)
[2019-02-21] MEDS: VANCOMYCIN 1.5 GM in NA CHLORIDE 0.9% 500 ML IVPB SCH (05:08)
[2019-02-21] MEDS: ARFORMOTEROL TARTRATE 15 MCG/2 ML VIAL.NEB NEB SCH (08:00)
[2019-02-21 08:04] VITALS: BP 132/70; TEMP 97.9
[2019-02-21] MEDS: NICOTINE 21 MG/PAT TD SCH (09:00)
[2019-02-21] MEDS: GABAPENTIN 100 MG CAP PO SCH (09:40)
[2019-02-21] MEDS: CLOPIDOGREL 75 MG TABLET PO SCH (09:44)
[2019-02-21] MEDS: LISINOPRIL 10 MG TAB PO SCH (09:44)
[2019-02-21] MEDS: FAMOTIDINE 20 MG TAB PO SCH (09:44)
[2019-02-21] MEDS: AMLODIPINE 10 MG TAB PO SCH (09:44)
[2019-02-21] MEDS: levETIRAcetam 500 MG TAB PO SCH (09:45)
[2019-02-21] MEDS: ENOXAPARIN 40 MG/0.4 ML SQ SCH (09:45)
[2019-02-21] MEDS: CEFEPIME/SWI 1gm 10 ML IV SCH (09:48)
--- NOTE | 2019-02-21 12:52 | P.DS ---
Admission Date: 02/16/19 Discharge Date: 02/21/19 Primary Care Provider: none; Surgery-Dr. Burroughs Reason for Admission: Left foot pain - Problems (1) Cellulitis Onset Date: 11/12/17 Current Visit: No Status: Resolved Qualifiers: Site of cellulitis: extremity Site of cellulitis of extremity: lower extremity Laterality: left Qualified Code(s): L03.116 - Cellulitis of left lower limb (2) CAD (coronary artery disease) Onset Date: 03/15/17 Current Visit: No Status: Chronic Qualifiers: Coronary Disease-Associated Artery/Lesion type: [place] artery [place] vs. transplanted heart: [place] heart Associated angina: without angina Qualified Code(s): I25.10 - Atherosclerotic heart disease of [place] coronary artery without angina pectoris (3) CHF (congestive heart failure) Onset Date: 03/15/17 Current Visit: No Status: Chronic (4) COPD (chronic obstructive pulmonary disease) Onset Date: 03/15/17 Current Visit: No Status: Chronic Qualifiers: COPD type: chronic bronchitis Chronic bronchitis type: unspecified Qualified Code(s): J42 - Unspecified chronic bronchitis (5) Hyperlipemia Current Visit: No Status: Chronic Qualifiers: Hyperlipidemia type: unspecified Qualified Code(s): E78.5 - Hyperlipidemia , unspecified (6) Hypertension Onset Date: 01/07/16 Current Visit: No Status: Chronic Qualifiers: Hypertension type: essential hypertension Qualified Code(s): I10 - Essential (primary) hypertension (7) Methamphetamine abuse Onset Date: 03/15/17 Current Visit: No Status: Chronic (8) Nicotine dependence Current Visit: No Status: Chronic Qualifiers: Nicotine product type: cigarettes Substance use status: uncomplicated Qualified Code(s): F17.210 - Nicotine dependence, cigarettes, uncomplicated (9) PAD (peripheral artery disease) Current Visit: No Status: Chronic Brief History of Present Illness: 53-year-old male presented to the emergency room with increasing left foot pain. Patient was hospitalized February 06 through the . Patient presented with osteomyelitis of the left foot. Patient had left partial foot amputation on February 07. Patient did well on that hospitalization. He was sent home with antibiotics and wound care with home health. Patient with underlying hypertension, COPD, CAD with peripheral vascular disease , tobacco abuse, seizure disorder. Patient reports that he bumped his left foot the other day against the kitchen trailer. Since that time he noted increased erythema, pain to the left lower extremity. He also reported some drainage to the left partial foot amputation. Sutures did not appear approximated as prior. Pain increase. He came to the ER for further evaluation. Patient denied any significant fever, chills. No shortness of breath noted. In the ER patient evaluated. White count elevated at 14.8, hemoglobin 14.5. Platelet count of 361. Percent neutrophils 75. Sodium 135, potassium 3.8, BUN of 15, creatinine 1.78 with a GFR 40. Glucose 101. Lactic acid and pro calcitonin pending at this time. Patient was admitted for further evaluation and treatment. Antibiotics initiated in the emergency room. Hospital Course: Overall during the hospital stay patient main stable Patient was initially admitted to the hospital for left-sided foot cellulitis. General surgery was consulted while here in the hospital. General surgery has been following patient outpatient and the wound healing center. General surgery recommended amputation of the left foot. Patient thus was scheduled for surgery and had amputation of the left foot toes. Wound cultures were collected. Wound culture was positive for MRSE. Patient was thus referred over to a long-term acute care facility for IV antibiotics and wound care. Wound VAC was also ordered by surgery while here in the hospital. Patient was educated extensively regarding the healing process and demonstrated understanding. Patient does have a history of drug abuse and smoking which she was educated extensively on while here in the hospital as well. Once patient was accepted at [facility] he was transferred there for further care. Vital Signs/Physical Exam: Temp Pulse Resp BP Pulse Ox 97.9 F 73 18 132/70 98 02/21/19 08:00 02/21/19 09:44 02/21/19 08:00 02/21/19 09:44 02/21/19 08:00 General: Alert, In no apparent distress HEENT: Atraumatic, PERRLA, EOMI Neck: Supple, JVD not distended Respiratory: Clear to auscultation bilaterally, Normal air movement Cardiovascular: Regular rate/rhythm, Normal S1 S2 Gastrointestinal: Normal bowel sounds, No tenderness Musculoskeletal: No tenderness Integumentary: No rashes Neurological: Normal speech, Normal tone, Normal affect Lymphatics: No axilla or inguinal lymphadenopathy Laboratory Data at Discharge: WBC 7.3 K/uL (4.3-10.9) 02/20/19 05:35 Hgb 11.5 g/dL (13.6-17.9) L 02/20/19 05:35 Hct 33.9 % (39.6-49.0) L 02/20/19 05:35 Plt Count 221 K/uL (152-406) 02/20/19 05:35 Sodium 142 mmol/L (136-145) 02/20/19 05:35 Potassium 5.0 mmol/L (3.5-5.1) 02/20/19 05:35 BUN 10 mg/dL (7-18) 02/20/19 05:35 Creatinine 1.00 mg/dL (0.55-1.3) 02/20/19 05:35 Glucose 76 mg/dL (74-106) 02/20/19 05:35 Magnesium 2.3 mg/dL (1.8-2.4) 02/20/19 05:35 Total Bilirubin 0.4 mg/dL (0.2-1.0) 02/16/19 20:22 AST 15 U/L (15-37) 02/16/19 20:22 ALT 17 U/L (12-78) 02/16/19 20:22 Alkaline Phosphatase 76 U/L (45-117) 02/16/19 20:22 Home Medications: Amlodipine [Norvasc*] 10 mg PO DAILY 02/06/19 Atorvastatin Calcium [Lipitor] 40 mg PO DAILY 02/06/19 Levetiracetam [Keppra] 1,000 mg PO DAILY 02/06/19 Ciprofloxacin HCl [Cipro 500 MG Tablet] 500 mg PO BID #28 tab 02/10/19 Doxycycline Hyclate 100 mg PO BID #28 capsule 02/10/19 Cefepime [Maxipime 1 gm/100 ml Ivpb] 1 gm IV Q12H #28 bag 02/21/19 Vancomycin/0.9 % Sod Chloride [Vanco 1.5 gm/250 ml-0.9% NaCl] 1.5 gm IV DIRECTED #18 plast..bag 02/21/19 New Medications: Cefepime [Maxipime 1 gm/100 ml Ivpb] 1 gm IV Q12H #28 bag Vancomycin/0.9 % Sod Chloride [Vanco 1.5 gm/250 ml-0.9% NaCl] 1.5 gm IV DIRECTED #18 plast..bag Followup: Krish Burroughs MD [ACTIVE - CAN ADMIT] - 1-2 Weeks (f/u [facility] in my clinic)
== END 2019-02-21 13:51 | DRG 580 ==
LOC: ER 18:19 → ERHOLD 22:22 → 4TH 22:37
PROVIDERS: ADMIT Family Medicine; ATTEND Family Medicine
PROC: 0QDP0ZZ Extraction of Left Metatarsal, Open Approach (ICD-10-PCS; principal; 2019-02-17 11:15)
DX: L03.116 Cellulitis of left lower limb (principal); I50.32 Chronic diastolic (congestive) heart failure; N17.9 Acute kidney failure, unspecified; B95.62 Methicillin resistant Staphylococcus aureus infection as the cause of diseases classified elsewhere; I25.10 Atherosclerotic heart disease of native coronary artery without angina pectoris; E78.5 Hyperlipidemia, unspecified; F15.10 Other stimulant abuse, uncomplicated; F17.210 Nicotine dependence, cigarettes, uncomplicated; J44.9 Chronic obstructive pulmonary disease, unspecified; I73.9 Peripheral vascular disease, unspecified; Z89.432 Acquired absence of left foot; I11.0 Hypertensive heart disease with heart failure; G40.909 Epilepsy, unspecified, not intractable, without status epilepticus; K21.9 Gastro-esophageal reflux disease without esophagitis; G62.9 Polyneuropathy, unspecified
CPT/HCPCS: 36415; 80048; 80053; 80202; 81003; 81015; 83605; 83735; 84145; 85025; 87040; 87070; 87075; 87077; 87086; 87088; 87176; 87185; 87186; 87205; 88304; 94640; 96361; 96365; 96367; 96375; 99285; J0692; J1170; J1650; J2250; J2405; J2543; J2704; J3010; J3590; J7030; J7605

== ENCOUNTER 2019-09-01 11:29 | Inpatient (IN) | payer OTHER ==
[2019-09-02 17:12] VITALS: BMI 29.5
[2019-09-02 23:02] VITALS: O2SAT 98
[2019-09-03 13:18] VITALS: BP 141/66; TEMP 98.1
== END 2019-09-03 16:11 | disposition home or self-care (01) | DRG 41 ==
LOC: ER 11:29 → ERHOLD 16:07 → 2ND 17:09
PROVIDERS: ADMIT Family Medicine; ATTEND Hospitalist
PROC: 0JBR0ZZ Excision of Left Foot Subcutaneous Tissue and Fascia, Open Approach (ICD-10-PCS; principal; 2019-09-02)
DX: R56.9 Unspecified convulsions (principal); N17.9 Acute kidney failure, unspecified; I50.32 Chronic diastolic (congestive) heart failure; I13.0 Hypertensive heart and chronic kidney disease with heart failure and stage 1 through stage 4 chronic kidney disease, or unspecified chronic kidney disease; F32.9 Major depressive disorder, single episode, unspecified; D64.9 Anemia, unspecified; I25.10 Atherosclerotic heart disease of native coronary artery without angina pectoris; J44.9 Chronic obstructive pulmonary disease, unspecified; E78.5 Hyperlipidemia, unspecified; F15.10 Other stimulant abuse, uncomplicated; F17.210 Nicotine dependence, cigarettes, uncomplicated; Z91.120 Patient's intentional underdosing of medication regimen due to financial hardship; Z79.899 Other long term (current) drug therapy; Z89.432 Acquired absence of left foot; K21.9 Gastro-esophageal reflux disease without esophagitis; Z91.14 Patient's other noncompliance with medication regimen; E86.0 Dehydration; R79.89 Other specified abnormal findings of blood chemistry; Z79.82 Long term (current) use of aspirin; I25.2 Old myocardial infarction; Z86.73 Personal history of transient ischemic attack (TIA), and cerebral infarction without residual deficits; Z85.828 Personal history of other malignant neoplasm of skin; Z95.820 Peripheral vascular angioplasty status with implants and grafts; N18.3 Chronic kidney disease, stage 3 (moderate); E11.22 Type 2 diabetes mellitus with diabetic chronic kidney disease; E11.51 Type 2 diabetes mellitus with diabetic peripheral angiopathy without gangrene; Z89.431 Acquired absence of right foot; B95.62 Methicillin resistant Staphylococcus aureus infection as the cause of diseases classified elsewhere; S81.802D Unspecified open wound, left lower leg, subsequent encounter
CPT/HCPCS: 36415; 70450; 71045; 80048; 80076; 80307; 80320; 80329; 81003; 81015; 82550; 83690; 83735; 83880; 84145; 84484; 85025; 85610; 85730; 87040; 87070; 87075; 87077; 87086; 87088; 87186; 87205; 93005; 93306; 96374; 96375; 99285; J0692; J1650; J1953; J2250; J3010; J3590; J7030; J7040; J7606; Q2009

== ENCOUNTER 2020-01-01 21:35 | Emergency (ER) | payer OTHER ==
--- OUTSIDE RECORDS SUMMARY | 2020-01-01 21:38 | XMS REPORT | Clinical Summary ---
:1965 [facility] Address [address] [place] [address] Care Team Providers Name Role Phone Unavailable Primary Care Provider Unavailable Allergies Active Allergy Reactions Severity Noted Date Comments Morphine Other (See Comments) 04/16/2017 Headach e Medications Medication Sig Dispensed Refills Start Date End Date Status VENTOLIN HFA 90 Inhale 1 puff by 1 08/26/2018 Active mcg/actuation inhaler mouth via inhaler 3 (three) times daily as needed for Shortness of Breath. lisinopril Take 10 mg by 0 08/26/2018 Acti ve (PRINIVIL,ZESTRIL) 10 mouth daily. MG tablet amLODIPine (NORVASC) Take 10 mg by 0 08/26/2018 Active 10 MG tablet mouth daily. lovastatin (MEVACOR) Take 20 mg by 0 Active 20 MG tablet mouth nightly. aspirin/salicylamide/ Take 2 packets 0 Active caffeine (BC HEADACHE by mouth daily POWDER ORAL) as needed (For headache and pain relief). folic acid (FOLVITE) Take 1 tablet (1 30 tablet 11 10/14/2018 0 10/14/2019 1 MG tablet mg total) by mouth daily. thiamine 100 MG Take 1 tablet 30 tablet 11 10/14/2018 0 tablet (100 mg total) by mouth daily. levETIRAcetam Take 1 tablet 60 tablet 11 10/14/2018 10/14/2019 (KEPPRA) 1000 MG (1,000 mg total) tablet by mouth 2 (two) times daily. Active Problems Problem Noted Date Seizures 10/13/2018 Metabolic acidosis 04/20/2017 H/O ETOH abuse 04/17/2017 Acute kidney injury 04/17/2017 Hypertension, essential 04/17/2017 Leukocytosis 04/17/2017 Tongue laceration 04/17/2017 Status epilepticus 04/16/2017 Social History Tobacco Use Types Packs/Day Years Used Date Current Every Day Smoker 1 Smokeless Tobacco: Current User Tobacco Cessation: Ready to Quit: No; Co unseling Given: Yes Sex Assigned at Date Recorded Not on file Job Start Date Occupation Industry Not on file Not on file Not on file Travel History Travel Start Travel End No recent travel history available. Last Filed Vital Signs Not on file Plan of Treatment Not on file Results Not on fileafter 12/31/2018 Insurance Payer Benefit Plan / Subscriber ID Type Phone Address Group [employer] - [employer] MED[employer]ARE xxxxxxxx Maps Contracted [phone] [address] MEDICARE [employer] HMO POS [id number] [place] [address] (Home) [place] [address]
--- OUTSIDE RECORDS SUMMARY | 2020-01-01 21:44 | XMS REPORT | Continuity of Care Document ---
:1965 Author Organization [employer] Care Team Providers Name Role Phone [employer] Unavailable Un available Problems Problem Status Onset Classification Date Comments Sourc e Date Reported ANEMIA Active 04/04/20 The 16 [place] Discharge 03/14/20 03/17/2016 The Diagnosis: Acute 16 [place] on chronic renal failure Discharge 03/14/20 03/17/2016 The Diagnosis: Anemia 16 [place] Discharge 03/14/20 03/17/2016 The Diagnosis: 16 [place] Post-operative pain Discharge 03/14/20 03/17/2016 The Diagnosis: Acute 16 [place] hypokalemia OTHER Active 03/13/20 The 16 [place] LEFT FOOT SORES Active 01/31/20 T he 16 [place] FOOT GANGRENE Active 01/31/20 The 16 [place] Discharge 02/17/20 02/19/2015 The Diagnosis: 15 [place] Hyperlipidemia Discharge 02/17/20 02/19/2015 The Diagnosis: 15 [place] Hypertension Discharge 02/17/20 02/19/2015 The Diagnosis: Angina 15 [place] pectoris CHEST PAIN Active 02/16/20 The 15 [place] CP Active 02/16/20 The 15 [place] Discharge 02/10/20 02/12/2015 The Diagnosis: Wrist 15 [place] sprain LEFT WRIST PAIN Active 02/10/20 T he 15 [place] Discharge 01/24/20 01/26/2015 The Diagnosis: 15 [place] Epileptic seizure, generalized Discharge 01/24/20 01/26/2015 The Diagnosis: 15 [place] Cerebral seizure AMS Active 01/24/20 The 15 [place] WOUND INFECTION V Active 10/21/19 The NECFAS;CHRONIC 14 [place] OSTEOMY Acute Active Problem 04/08/2016 The osteomyelitis [place] (disorder) Congestive heart Active Problem 04/08/2016 The failure [place] (disorder) 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/08/2016 The disorder, [place]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 (disorder) Bronchitis Active Problem 04/08/2016 The (disorder) [place] Chronic Active Problem 04/08/2016 The obstructive lung [place] disease (disorder) Epistaxis Active Problem 04/08/2016 The (disorder) [place] Seizure (finding) Active Problem 04/08/2016 [facility] [place] History of - Active Problem 04/08/2016 The infectious [place] disease (context-dependen t category) History of Active Problem 04/08/2016 The amputation of [place] lesser toe (situation) History of - Active Problem 04/08/2016 The cardiovascular [place] and[place] disease (context-dependen t category) Benign prostatic Active Problem 04/08/2016 The hyperplasia [place] (disorder) CELLULITIS OF Active The FOOT [place] AC Active The OSTEOMYELITIS-UNS [facility] PEC CHEST PAIN NOS Active Th e [place] GANGRENE, NOT Active The ELSEWHERE [place] CLASSIFIED ANEMIA, Active The UNSPECIFIED [place] Medications Medication Details Route Status Patient Ordering Order Source Instructions Provider Date Sodium Chloride IVPB, 150 Active The 0.9% IV ml/hr, PRN, 2015 [place] Start date: 04/05/16 8:00:00 [employer], Duration: 30, 1,000 ml EPINEPHrine Notes: Active The MEDICATION 2015 [place] WASTE Product Size: 1 mg Product Wasted: ___ mg Solu-CORTEF Notes: (Same Active The as: [address] [place] [address] Solu-CORTEF) Benadryl Notes: (Same Active The as: Benadryl) 2015 [place] Sodium Chloride IV, 0 ml/hr, Active The 0.9% IV PRN, PRN Blood 2015 [place] Transfusion, Start date: 04/05/16 7:21:00 [employer], Duration: 30, 250 ml heparin flush Notes: (Same Active Th e as: Heparin 2015 [place] Lock Flush) BD Normal Saline Notes: (Same Active The Flush as: BD 2015 [place] Posiflush) Benadryl Notes: (Same Active The as: Benadryl) 2015 [place] Tylenol Notes: Do not Active The exceed 4 2015lands gm/day. (Same as: Tylenol) Acetaminophen 325 Notes: (Same Inactive The MG / Hydrocodone as: [place] 2015 and Bitartrate 5 MG 325/5) Do not Oral Tablet [[place] exceed 4gm/day 5/325] of acetaminophen. Acetaminophen 300 1 tab, PO, No Longer 03/14/ H The MG / Codeine Q4H, PRN Pain, Active 2015 [facility] Phosphate 30 MG X 2 day, # 12 Oral Tablet tab, 0 [Tylenol with Refill(s) Codeine #3] Zofran Notes: (Same No Longer The as: Zofran) Active 2015 MEDICATION WASTE Product Size: 4 mg Product Wasted: ___ mg Dilaudid Notes: Same No Longer The as: Dilaudid Active 2015 Sodium Chloride 500 mL, 500 No Longer The 0.154 MEQ/ML ml/hr, Infuse Active 2015 [employer] Injectable Over: 1 hr, Solution Route: IV, 500, Drug form: INJ, ONCE, Priority: STAT, Dosing Weight 98.636 kg, Start date: 03/13/16 23:18:00 CDT, Duration: 1 doses or times, Stop date: 03/13/16 23:18:00 CDT Oxycodone 15 mg = 3 tab, Active The Hydrochloride 5 MG PO, Q4H, PRN 2015 Oral Tablet Pain Score 7-10, 0 Refill(s) Oxycodone Notes: (Same Inactive The Hydrochloride 5 MG as: 2015 [facility] ands Oral Tablet Roxicodone) Ceftriaxone Notes: (Same No Longer Th e As: Rocephin). Active 2015 [place] Use with 100 mL NS and infuse over 30 min MEDICATION WASTE Product Size: 2000 mg Product Wasted: ___ mg Albuterol 0.83 NEB, PRN, PRN Active The MG/ML Inhalant Respiratory 2015 [facility] Solution Protocol, 0 Refill(s) chlorhexidine 1 appl, BATHE, Active The gluconate 40 MG/ML Q-M-W-F, 0 2015 [facility] Medicated Liquid Refill(s) Soap tamsulosin 0.4 mg 0.4 mg = 1 Active The oral capsule cap, PO, After 2015 [facility] Dinner, 0 Refill(s) fluconazole 100 mg 200 mg = 2 Active The oral tablet tab, PO, 2015 [place] [id number], 0 Refill(s) pantoprazole 40 mg 40 mg = 1 tab, Active The oral enteric PO, Before 2015 [place] coated tablet Breakfast, 0 Refill(s) Acetaminophen 325 1 tab, PO, Active The MG / Hydrocodone Q4H, PRN Pain [facility] Bitartrate 5 MG Score 1-3, 0 Oral Tablet Refill(s) cefTRIAXone + Notes: (Same No Longer The sodium chloride As: Rocephin). [facility] 0.9% INJ 100 mL Use with 100 mL NS and infuse over 30 min MEDICATION WASTE Product Size: 2000 mg Product Wasted: ___ mg Flomax Notes: (Same No Longer The As: Flomax) Active 2015 [place] "Do Not Crush" vancomycin + 2001 mg: No Longer The sodium chloride infuse over Active 2015 [facility] 0.9% INJ 250 mL 2.5 hours MEDICATION WASTE Product Size: 1000 mg Product Wasted: ___ mg Fluconazole Notes: (Same No Longer Th e as: Diflucan) Active 2015 [place] Dilaudid Notes: Same No Longer The as: Dilaudid Active 2015 [place] gabapentin Notes: (Same No Longer The as: Neurontin) Active 2015 [place] Naloxone Notes: Same as Inactive The Narcan 2015[place] Lorazepam Notes: (Same Inactive The as: Ativan) 2015[place] Ondansetron 4 mg, Route: Inactive The IVP, ONCE, 2015 [place] Dosing Weight 96.023, kg, PRN Nausea & Vomiting, Start date: 02/12/16 9:59:00 CDT Glycopyrrolate Notes: (Same Inactive The as: Robinul) 2015 [place] Flumazenil Notes: (Same Inactive The as: Romazicon) 2015 [place] Fentanyl Notes: (Same Inactive The as: Sublimaze) 2015 [place] Preservative free. Hydralazine Notes: (Same Inactive The as: 2015 [place] Apresoline) Push over 5 minutes Hydromorphone Notes: Same Inactive Th e as: Dilaudid 2015 [place] Labetalol 10 mg, 2 mL, Inactive The Route: IVP, 2015 [place] Drug form: INJ, Q5Min, Dosing Weight 96.023, kg, PRN Elevated BP, Start date: 02/12/16 9:59:00 CDT, Duration: 5 doses or times, Stop date: Limited # of times fentaNYL (ANES) Route: IV, Inactive T he Drug form: 2015 [place] INJ, ONCE, Stop date: 02/12/16 8:40:00 CDT propofol (ANES) Route: IV, Inactive T he Drug form: 2015 [place] INJ, ONCE, Stop date: 02/12/16 8:40:00 CDT lidocaine (ANES) Route: IV, Inactive The Drug form: 2015 [place] INJ, ONCE, Stop date: 02/12/16 8:40:00 CDT LR 1000 mL INJ Route: IV, Inactive Th e (ANES) Total Volume: 2015 [place] 1,000, Start date: 02/12/16 7:55:00 CDT, Stop date: 02/12/16 8:55:00 CDT Ceftriaxone Notes: (Same No Longer Th e As: Rocephin). Active 2015 [place] Use with 100 mL NS and infuse over 30 min MEDICATION WASTE Product Size: 2000 mg Product Wasted: ___ mg Dilaudid Notes: Same No Longer The as: Dilaudid Active 2015 [place] vancomycin 2001 mg: No Longer The infuse over Active 2015 [place] 2.5 hours metoprolol Notes: (Same No Longer The as: Toprol XL) Active 2015 [place] May split tab, but do not crush. Alprazolam 1 MG Notes: With No Longer The Oral Tablet food or milk Active 2015 [facility] ds [Xanax] (Same as: Xanax) vancomycin 2001 mg: Inactive The infuse over 2015[place] 2.5 hours Anoro 62.5mcg/25 Anoro No Longer Th e mcg 62.5mcg/25 Active 2015 [place] mcg, 1 puff, Route: INHALATION, RBID, 02/09/16 20:00:00 CDT, Duration: 30 day, Stop date: 03/10/16 8:00:00 CDT ketOROLAC 30 mg/mL 60 mg, Route: Inactive The injectable IVP, Drug 2015 [place] solution form: INJ, ONCE, Dosing Weight 96.023, kg, Start date: 02/09/16 17:40:00 CDT, Duration: 1 doses or times, Stop date: 02/09/16 17:40:00 CDT Vancomycin Dosing Vancomycin No Longer H The per RPh Dosing per Active 2015 [place] RPh, ., Drug form: MISC, Route: MISC, PRN, PRN Other -See Comment, 02/09/16 14:51:00 CDT, Duration: 30 day, Stop date: 03/10/16 14:50:00 CDT Dilaudid Notes: Same No Longer The as: Dilaudid Active 2015 [place] Sodium Chloride 500 mL, 500 Inactive The 0.154 MEQ/ML ml/hr, Infuse 2015 [place] [facility] Injectable Over: 1 hr, Solution Route: IV, 500, Drug form: INJ, ONCE, Priority: STAT, Dosing Weight 96.023 kg, Start date: 02/09/16 12:59:00 CDT, Duration: 1 doses or times, Stop date: 02/09/16 12:59:00 CDT pantoprazole Notes: Tablet No Longer The should not be Active 2015 [place] chewed or crushed. (Same as: Protonix) chlorhexidine Notes: (Same No Longer The gluconate 40 MG/ML As: Hibiclens) Active 2015 [place] Medicated Liquid Soap Simvastatin Notes: (Same No Longer Th e as: Zocor) Active 2015 [place] Cefuroxime 1.5 gm, Route: No Longer T he IVPB, [id number], Active 2015 [place] Dosing Weight 96.023, kg, Start date: 02/08/16 21:00:00 CDT, Duration: 3 doses or times, Stop date: 02/09/16 13:00:00 CDT Neutra-Phos Notes: Same No Longer The as: Phos-Nak Active 2015 [place] Mix 1 packet with 75 mL water or juice. Each packet has 160mg of sodium, 280mg of potassium, and 250mg of phosphorus Non-Formulary Item potassium Notes: (Same No Longer The phosphate + sodium as: K Active 2015 [place] chloride 0.9% 500 Phosphate.) 1 ml INJ 500 mL mMol phoshate has 1.47 mEq potassium Infuse over 4 hours potassium Notes: (Same No Longer The phosphate + sodium as: K Active 2015 [place] chloride 0.9% INJ Phosphate.) 1 250 mL mMol phoshate has 1.47 mEq potassium Infuse over 4 hours Magnesium Oxide Notes: (Same No Longer H The as: Mag-Ox Active 2015 [place] 400) Magnesium oxide [id number] elemental magnesium Dose=____mg magnesium oxide (___mg elemental magnesium) Magnesium Sulfate Notes: WASTE: No Longer The F/P - Sink; E Active 2015 [place] - [employer] potassium chloride Notes: (Same No Longer The as: Potassium Active 2015 [place] Chloride) sodium phosphate + 15 mmol, 5 mL, No Longer 01/26 4/ MH The sodium chloride Route: IVPB, Active 2015 [place] 0.9% INJ 250 mL PRN, Dosing Weight 96.023, kg, PRN Abnormal Lab Result, Start date: 02/08/16 20:04:00 CDT, Duration: 30 day, Stop date: 03/09/16 20:03:00 CDT, FOR ICU USE ONLY sodium phosphate + 45 mmol, 15 No Longer The sodium chloride mL, Route: Active 2015 [place] and[facility] 0.9% 500 ml INJ IVPB, Drug 500 mL form: INJ, PRN, Dosing Weight 96.023, kg, PRN Abnormal Lab Result, Start date: 02/08/16 20:04:00 CDT, Duration: 30 day, Stop date: 03/09/16 20:03:00 CDT, FOR ICU USE ONLY Calcium Carbonate Notes: (Same No Longer The 500 MG Chewable As: Tums) Active 2015 [facility] nds Tablet Calcium Carbonate 500 mg = 200 mg elemental calcium Dose = mg calcium carbonate ( mg elemental calcium) Calcium Gluconate Notes: WASTE: No Longer The F/P - Sink; E Active 2015 [place] - [employer] Albuterol 0.83 Notes: SEE RT No Longer H The MG/ML Inhalant DOCUMENTATION Active 2015 [place] Solution (Same as: Proventil) Dextrose 50% 25 gm, 50 mL, No Longer The Syringe Route: IVP, Active 2015 [place] Drug Form: INJ, Dosing Weight 96.023, kg, PRN, PRN Blood Glucose Results, Start date: 02/08/16 20:04:00 CDT, Duration: 30 day, Stop date: 03/09/16 20:03:00 CDT Docusate Notes: (Same No Longer The as: Colace) Active 2015 [place] (Do Not Crush) Glucagon 1 mg, Route: No Longer The IM, Drug form: Active 2015 [place] PDR/INJ, PRN, Dosing Weight 96.023, kg, PRN Blood Glucose Results, Start date: 02/08/16 20:04:00 CDT, Duration: 30 day, Stop date: 03/09/16 20:03:00 CDT Acetaminophen 325 Notes: (Same No Longer The MG / Hydrocodone as: [place] Active 2015 [facility]a Bitartrate 5 MG 325/5) Do not Oral Tablet exceed 4gm/day of acetaminophen. Acetaminophen Notes: Do not No Longer The exceed 4 Active 2015 [place] gm/day. (Same as: Tylenol) D5W 1/2NS + KCL Notes: PREMIX No Longer The 20mEq/L 1000ml IV - Do Not Active 2015 [facility] ands (Premix) 1,000 mL Alter WASTE: F/P - Sink; E - [employer] Ondansetron Notes: (Same Inactive The as: Zofran) 2015 [place] MEDICATION WASTE Product Size: 4 mg Product Wasted: ___ mg Promethazine 6.25 mg, 25 Inactive The mL, Route: 2015 [place] IVPB, Drug form: SOLN, ONCE, Dosing Weight 96.023, kg, PRN Nausea & Vomiting, Start date: 02/08/16 9:59:00 CDT Flumazenil Notes: (Same Inactive The as: Romazicon) 2015 [place] Naloxone Notes: Same as Inactive The Narcan 2015 [place] Fentanyl Notes: (Same Inactive The as: Sublimaze) 2015 [place] Preservative free. Hydromorphone Notes: Same Inactive e as: Dilaudid 2015 [place] Labetalol 10 mg, 2 mL, Inactive The Route: IVP, 2015 [place] Drug form: INJ, Q5Min, Dosing Weight 96.023, kg, PRN Elevated BP, Start date: 02/08/16 9:59:00 CDT, Duration: 5 doses or times, Stop date: Limited # of times ondansetron (ANES) Route: IV, Inactive H The Drug form: 2015 [place] INJ, ONCE, Stop date: 02/08/16 9:40:00 CDT hydromorphone Route: IV, Inactive The (ANES) Drug form: 2015 [place] INJ, ONCE, Stop date: 02/08/16 9:15:00 CDT LR 1000 mL INJ Route: IV, Inactive e (ANES) Total Volume: 2015 [place] 1,000, Start date: 02/08/16 9:08:00 CDT, Stop date: 02/08/16 10:08:00 CDT heparin (ANES) Route: IV, Inactive e Drug form: 2015 [place] INJ, ONCE, Stop date: 02/08/16 8:55:00 CDT fentaNYL (ANES) Route: IV, Inactive T he Drug form: 2015 [place] INJ, ONCE, Stop date: 02/08/16 8:40:00 CDT propofol (ANES) Route: IV, Inactive T he Drug form: 2015 [place] INJ, ONCE, Stop date: 02/08/16 8:40:00 CDT lidocaine (ANES) Route: IV, Inactive The Drug form: 2015 [place] INJ, ONCE, Stop date: 02/08/16 8:40:00 CDT midazolam (ANES) Route: IV, Inactive The Drug form: 2015 [place] SOLN, ONCE, Stop date: 02/08/16 8:40:00 CDT rocuronium (ANES) Route: IV, Inactive The Drug form: 2015 [place] INJ, ONCE, Stop date: 02/08/16 8:40:00 CDT piperacillin-tazob IV, ONCE Inactive The actam (ANES) 2015 [place] famotidine (ANES) Route: IV, Inactive The Drug form: 2015 [place] INJ, ONCE, Stop date: 02/08/16 8:25:00 CDT Rifadin IV Notes: No Longer The Child:10-20mg/ Active 2015 kg ,<= 600mg/day. Protect from light (Same as: Rifadin) Lidocaine 5 mg, Route: Inactive The Hydrochloride 10 INTRADERM, 2015 [facility] MG/ML Injectable Dosing Weight Solution 98.636, kg, ONCALL, Start date: 02/08/16 7:00:00 CDT, Duration: 30 day, Stop date: 03/09/16 6:59:00 CDT Lactated Ringers 1,000 mL, No Longer The 1,000 mL Rate: 40 Active 2015 ml/hr, Infuse over: 25 hr, Route: IV, Dosing Weight 98.636 kg, Total Volume: 1,000, Start date: 02/08/16 6:31:00 CDT, Duration: 30 day, Stop date: 03/09/16 6:30:00 CDT Roxicodone 15 mg, Route: Inactive The PO, Drug form: 2015 [place] TAB, Q4H, Start date: 02/07/16 12:00:00 CDT, Stop date: 03/08/16 8:00:00 CDT Roxicodone Notes: (Same No Longer The as: Active 2015 [place] Roxicodone) oxyCODONE 10 mg 15 mg, Route: Inactive H The extended release PO, Drug form: 2015 [place] ERTAB, Q6H, Start date: 02/05/16 18:00:00 CDT, Duration: 30 day, Stop date: 03/06/16 12:00:00 CDT Roxicodone Notes: (Same No Longer The as: Active 2015 [place] Roxicodone) Dilaudid Notes: Same No Longer The as: Dilaudid Active 2015 [place] sodium chloride 1,000 mL, No Longer T he 0.9% 1000 ml INJ Rate: 50 Active 2015 [facility] nds 1,000 mL ml/hr, Infuse over: 20 hr, Route: IV, Dosing Weight 97.273 kg, Total Volume: 1,000, Start date: 02/04/16 11:14:00 CDT, Stop date: 03/05/16 11:13:00 CDT vancomycin 2001 mg: No Longer The infuse over Active [address] [place] [address] 2.5 hours atorvastatin Notes: (Same No Longer T he as: Lipitor) Active 2015 [place] Vancomycin 1 ea, Route: Inactive The MISC, Dosing 2015 [place] Weight 97.273, kg, ONCALL, Start date: 02/01/16 15:00:00 CDT, Duration: 1 doses or times, Pharmacy to dose Acetaminophen 325 Notes: Do not No Longer The MG / Hydrocodone exceed 4gm/day Active 2015 [place] Bitartrate 10 MG of Oral Tablet [[place] acetaminophen. 10/325] (Same as: [place] 325/10) Tylenol Notes: Do not No Longer The exceed [address] [place] [address] gm/day. (Same as: Tylenol) Vancomycin 2001 mg: No Longer The infuse over Active 2015 [place] 2.5 hours MEDICATION WASTE Product Size: 1000 mg Product Wasted: ___ mg Zosyn Notes: (Same No Longer The as: Zosyn) Active 2015 [place] Dosing based on Piperacillin component MEDICATION WASTE Product Size: 3375 mg Product Wasted: ___ mg Lisinopril Notes: (Same No Longer The as: Prinivil, Active 2015 [place] Zestril) Amlodipine Notes: (Same No Longer The as: Norvasc) Active 2015 [place] cilostazol Notes: No Longer The Non-Formulary Active 2015 [place] Drug. (Same As: Pletal) Doxazosin Notes: (Same No Longer The as: Cardura) Active 2015 [place] gabapentin Notes: (Same No Longer The as: Neurontin) Active 2015 [place] 24 HR Metoprolol Notes: (Same No Longer The Tartrate 100 MG as: Toprol XL) Active 2015 [facility] Extended Release May split Tablet [Toprol] tab, but do not crush. Alprazolam 2 MG Notes: With No Longer The Oral Tablet food or milk Active 2015 [facility] ds (Same as: Xanax) Albuterol 0.833 Notes: (Same No Longer H The MG/ML / as: Duoneb) Active 2015[place] Ipratropium [place] 0.167 MG/ML Inhalant Solution Zofran Notes: (Same No Longer The as: Zofran) Active 2015 [place] MEDICATION WASTE Product Size: 4 mg Product Wasted: ___ mg Dilaudid Notes: Same No Longer The as: Dilaudid Active 2015 [place] Acetaminophen 300 1 tab, PO, No Longer M H The MG / Codeine BID, PRN pain, Active 2015 [facility] Phosphate 30 MG # 28 tab, 0 Oral Tablet Refill(s) lisinopril 10 mg 10 mg = 1 tab, Active The oral tablet PO, Daily, # 2016 [place] ds 30 tab, 0 Refill(s) metoprolol 100 mg = 1 Active The tartrate 100 mg tab, PO, BID, 2015 [facility] oral tablet # 60 tab, 0 Refill(s) Centrum Adults 1 tab, PO, Active The oral tablet Daily, 0 2015lands Refill(s) doxazosin 1 mg 1 mg = 1 tab, Active The oral tablet PO, Daily, # 2015 [place] ds 30 tab, 0 Refill(s) atorvastatin 40 mg 40 mg = 1 tab, Active The oral tablet PO, Bedtime, # 2015 [place] 30 tab, 0 Refill(s) Anoro Ellipta 62.5 1 puff, Active Th e mcg-25 mcg INHALER, 2015[place] inhalation powder Daily, # 1 ea, 3 Refill(s) Alprazolam 2 MG 2 mg = 1 tab, Active The Oral Tablet PO, BID, PRN 2015lan ds Anxiety, # 20 tab, 0 Refill(s) Furosemide 20 MG 20 mg = 1 tab, Active The Oral Tablet PO, Daily, # 2015 [place] ds 30 tab, 0 Refill(s) cilostazol 100 mg 100 mg = 1 Active The oral tablet tab, PO, BID, 2015la nds # 60 tab, 0 Refill(s) Acetaminophen 650 mg, Route: Inactive The PO, Drug form: 2015 [place] TAB, ONCE, Dosing Weight 95, kg, Priority: STAT, Start date: 01/31/16 22:28:00 CDT, Stop date: 01/31/16 22:28:00 CDT Piperacillin / Notes: (Same Inactive The tazobactam as: Zosyn) 2015 [place] Dosing based on Piperacillin component MEDICATION WASTE Product Size: 3375 mg Product Wasted: ___ mg Vancomycin 2001 mg: Inactive The infuse over 2015 2.5 hours MEDICATION WASTE Product Size: 1000 mg Product Wasted: ___ mg Sodium Chloride 1,000 mL, Inactive Th e 0.154 MEQ/ML 2,000 ml/hr, 2015 [facility] nds Injectable Infuse Over: Solution 30 minutes, Route: IV, 1,000, Drug form: INJ, ONCE, Priority: STAT, Dosing Weight 95 kg, Start date: 01/31/16 17:04:00 CDT, Duration: 1 doses or times, Stop date: 01/31/16 17:04:00 CDT Acetaminophen 325 Notes: Do not Inactive The MG / Hydrocodone exceed 4gm/day 2015 [place] Bitartrate 10 MG of Oral Tablet [[place] acetaminophen. 10/325] (Same as: [place] 325/10) Amlodipine 10 mg, PO, Active The Daily, 0 2015 [place] Refill(s) gabapentin 300 mg, PO, Active The BID, 0 2015 [place] Refill(s) atorvastatin Notes: (Same Inactive e As: Lipitor) 2014 [place] lovastatin 20 mg 20 mg = 1 tab, Active The oral tablet PO, Bedtime, # 2014 [place] and[place]ose 30 tab, 0 Refill(s), given to patient Hydrochlorothiazid 1 tab, Route: No Longer 02/16 The e 12.5 MG / PO, Drug Form: Active 2014 [facility] Lisinopril 20 MG TAB, Dosing Oral Tablet Weight 98.267, kg, Daily, Start date: 02/16/15 9:00:00, Duration: 30 day, Stop date: 03/17/15 9:00:00 Prinivil Notes: (Same Inactive The as: Prinivil, 2014 [place] Zestril) metoprolol Notes: (Same Inactive The tartrate as: Lopressor) 2014 [place] Microzide Notes: (Same Inactive The as: 2014 [place] Hydrodiuril). Give with food. pneumococcal Notes: (Same Inactive Th e capsular as: Pneumovax 2014 [place] polysaccharide 23) type 1 vaccine / Refrigerate pneumococcal capsular polysaccharide type 10A vaccine / pneumococcal capsular polysaccharide type 11A vaccine / pneumococcal capsular polysaccharide type 12F vaccine / pneumococcal capsular polysacchar Alprazolam 0.25 MG Notes: With No Longer The Oral Tablet food or milk Active 2014 [place] ds [Xanax] (Same as: Xanax) Acetaminophen 325 Notes: (Same No Longer The MG / Hydrocodone as: [place] Active 2014l ands Bitartrate 5 MG 325/5) Do not Oral Tablet [[place] exceed 4gm/day 5/325] of acetaminophen. Maria Esther Cruz Notes: (Same No Longer H The As: Tessalon Active 2014 [place] Anthony) "Do Not Crush" Acetaminophen 325 1 tab, PO, Active The MG / Hydrocodone Q12H, PRN 2014l ands Bitartrate 5 MG Pain, # 30 Oral Tablet [[place] tab, 0 5/325] Refill(s) Alprazolam 0.25 MG 0.25 mg = 1 Active H The Oral Tablet tab, PO, BID, 2014me nds [Xanax] PRN Anxiety, Stress, # 20 tab, 0 Refill(s) metoprolol 25 mg, PO, Active The tartrate BID, 0 2014 [place] Refill(s) NS 1,000 mL 1,000 mL, No Longer The Rate: 75 Active 2014 [place] ml/hr, Infuse over: 13.3 hr, Route: IV, Dosing Weight 13.636 kg, Total Volume: 1,000, Start date: 02/15/15 18:04:00, Duration: 30 day, Stop date: 03/17/15 18:03:00 Xopenex Notes: SEE RT No Longer The DOCUMENTATION Active 2014 [place] (Same as:Xopenex) Non-Formulary Acetaminophen 325 Notes: Do not No Longer The MG / Hydrocodone exceed 4gm/day Active 2014 [place] Bitartrate 10 MG of Oral Tablet [[place] acetaminophen. 10/325] (Same as: [place] 325/10) Albuterol 0.833 Notes: (Same No Longer H The MG/ML / as: Duoneb) Active 2014lands Ipratropium [place] 0.167 MG/ML Inhalant Solution [DuoNeb] Aspirin Notes: Take Inactive The with food. 2014[place] tramadol 100 mg = 2 Active The hydrochloride 50 tab, PO, Q6H, 2015 [place] MG Oral Tablet PRN pain, X 3 [Ultram] day, # 20 tab, 0 Refill(s) Tylenol Notes: Do not Inactive The exceed 4 2014 [place] gm/day. (Same as: Tylenol) Sodium Chloride 1,000 mL, Inactive e 0.154 MEQ/ML 1,000 ml/hr, 2014me nds Injectable Infuse Over: 1 Solution hr, Route: IV, 1,000, Drug form: INJ, ONCE, Priority: STAT, Dosing Weight 104.545 kg, Start date: 01/23/15 14:39:00, Duration: 1 doses or times, Stop date: 01/23/15 14:39:00 Saline Flush 0.9% Notes: Inactive e preservative 2014 [place] free. Allergies, Adverse Reactions, Alerts Substance Category Reaction Severity Reaction Status Date Comments S ource type Reported morphine Assertion Drug Active e allergy [place] Immunizations Immunization Date Site Status Last Updated Comments Sour ce Given pneumococcal Right completed [facility] The 23-valent 5 deltoid [place] vaccine Results Order Name Results Value Reference Date Interpretation Comments Samia rce Range BLOOD BANK RBC product Product available 04/04 The RESULTS (04/04/16 11:22 AM) [facility] Services BLOOD BANK ABO/Rh B POS 04/04 The RESULTS /2015 [facility] BLOOD BANK Antibody Negative 04/04 The RESULTS Scrn (04/04/16 11:20 AM) [facility] URINE AND UA <=1.0 0.1 - 1.0 03/14 The STOOL Urobilinogen mg/dL /2015 [facility] URINE AND UA RBC 1 0 - 2 03/14 The STOOL /2015 [facility] URINE AND UA WBC 3 0 - 5 03/14 The STOOL /2015 [facility] URINE AND UA Sq Epi Few /LPF Few /LPF 03/14 The STOOL /2015 [facility] URINE AND UA Mucus Few /LPF None Seen 03/14 The STOOL /LPF /2015 [facility] URINE AND UA Leuk Est Negative Negative 03/14 The STOOL (10/18/16 2:08 AM) [facility] URINE AND UA Protein Negative Negative 03/14 The STOOL mg/dL mg/dL /2015 [facility] URINE AND UA pH 5.0 5.0 - 8.0 03/14 The STOOL /2015 [facility] URINE AND UA Spec Grav 1.009 <=1.030 03/14 The STOOL /2015 [facility] URINE AND UA Turbidity Clear Clear 03/14 The STOOL (03/14/16 2:08 AM) /2015 [facility] URINE AND UA Ketones Negative Negative 03/14 The STOOL mg/dL mg/dL /2015 [facility] URINE AND UA Glucose Negative Negative 03/14 The STOOL mg/dL mg/dL /2015 [facility] URINE AND UA Color Yellow Yellow 03/14 The STOOL *NA* /2015 [facility] (03/14/16 2:08 AM) URINE AND UA Nitrite Negative Negative 03/14 The STOOL (03/14/16 2:08 AM) /2015 [facility] URINE AND UA Blood Negative Negative 03/14 The STOOL (03/14/16 2:08 AM) /2015 [facility] URINE AND UA Bili Negative Negative 03/14 The STOOL *NA* /2015 [facility] (03/14/16 2:08 AM) CHEM PANEL Lactic Acid 0.8 0.5 - 2.2 03/14 The Lvl /2015 [facility] CHEM PANEL Procalcitoni <0.05 0.00 - 03/14 The n Lvl ng/mL 0. [facility] BLOOD BANK Antibody Negative 03/14 The RESULTS Scrn (03/13/16 9:07 PM) [facility] BLOOD BANK ABO/Rh B POS 03/14 The RESULTS /2015 [facility] CHEM PANEL eGFR 43 03/14 Result MH Comment: [place] eGFR is calculated using the CKD-EPI formula. [...] 21 7 - 22 10 MH The [facility] CHEM PANEL Creatinine 1.79 0.50 - 10 MH The Lvl 1.40 /2015 [facility] CHEM PANEL Alk Phos 95 39 - 136 10 MH The [facility] CHEM PANEL Bili Total 0.3 0.2 - 1.3 10 MH The [facility] CHEM PANEL AST 39 0 - 37 10 MH The [facility] CHEM PANEL ALT 59 0 - 65 10 MH The [facility] CHEM PANEL Sodium Lvl 139 135 - 145 10 MH The [facility] CHEM PANEL Total 7.8 6.4 - 8.4 10 MH The Protein [facility] CHEM PANEL Albumin Lvl 2.5 3.5 - 5.0 10 MH The [facility] CHEM PANEL Glucose Lvl 120 70 - 99 10 MH The [facility] CHEM PANEL Chloride Lvl 106 95 - 109 10 MH The [facility] CHEM PANEL CO2 21 24 - 32 10 MH The [facility] CHEM PANEL Calcium Lvl 10.1 8.5 - 10.5 10 MH The [facility] CHEM PANEL Potassium 3.3 3.5 - 5.1 10 MH The Lvl [facility] CHEM PANEL A/G Ratio 0.5 0.7 - 1.6 10 MH The [facility] CHEM PANEL Globulin 5.3 2.7 - 4.2 10 MH The [facility] CHEM PANEL B/C Ratio 12 6 - 25 10/ MH The [facility] CHEM PANEL AGAP 15.3 10.0 - 10 MH The 20.0 [facility] HEMATOLOGY MPV 7.4 7.4 - 10.4 1018 MH The [facility] HEMATOLOGY WBC 7.3 3.7 - 10.4 10 MH The [facility] HEMATOLOGY MCV 88.5 80.0 - 1018 MH The 94.0 [facility] HEMATOLOGY RBC 3.00 4.70 - 10 MH The 6.10 [facility] HEMATOLOGY Hct 26.5 42.0 - 03/14 MH The 54.0 /2015 [facility] HEMATOLOGY Hgb 8.8 14.0 - 03/14 MH The 18.0 [facility] HEMATOLOGY MCHC 33.1 32.0 - 03/14 MH The 36.0 [facility] HEMATOLOGY MCH 29.3 27.0 - 03/14 The 31.0 [facility] HEMATOLOGY Platelet 241 133 - 450 10 MH The [facility] HEMATOLOGY RDW 15.5 11.5 - 03/14 The 14.5 [facility] HEMATOLOGY Basophils # 0.1 0.0 - 0.2 03/14 MH The [facility] HEMATOLOGY Lymphocytes 14.3 20.0 - 03/14 MH The 40.0 [facility] HEMATOLOGY Eosinophils 1.9 0.0 - 4.0 03/14 MH The [facility] HEMATOLOGY Segs 77.1 45.0 - 03/14 MH The 75.0 [facility] HEMATOLOGY Monocytes 5.3 2.0 - 12.0 03/14 MH The [facility] HEMATOLOGY Basophils 1.4 0.0 - 1.0 03/14 MH The [facility] HEMATOLOGY Segs-Bands # 5.6 1.5 - 8.1 03/14 MH The [facility] HEMATOLOGY Lymphocytes 1.0 1.0 - 5.5 03/14 MH The [facility] HEMATOLOGY Monocytes # 0.4 0.0 - 0.8 03/14 MH The [facility] HEMATOLOGY Eosinophils 0.1 0.0 - 0.5 03/14 MH The [facility] ANEMIA UIBC 174 110 - 370 02/15 The [facility] ANEMIA TIBC 196 228 - 428 02/15 The [facility] ANEMIA Iron 22 45 - 160 02/15 The [facility] ANEMIA % Satur Fe 11 12 - 57 02/15 The [facility] CHEM PANEL eGFR 57 02/14 The [facility] Comment: [place] eGFR is calculated using the CKD-EPI formula. [...] CHEM PANEL AGAP 14.7 10.0 - 02/14 MH The 20.0 [facility] CHEM PANEL Calcium Lvl 8.7 8.5 - 10.5 02/14 MH The [facility] CHEM PANEL CO2 24 24 - 32 09 MH The [facility] CHEM PANEL Chloride Lvl 99 95 - 109 02/14 MH The [facility] CHEM PANEL Potassium 3.7 3.5 - 5.1 02/14 MH The Lvl /2015 [facility] CHEM PANEL BUN 16 7 - 22 02/14 MH The [facility] CHEM PANEL Glucose Lvl 128 70 - 99 02/14 MH The [facility] CHEM PANEL Sodium Lvl 134 135 - 145 02/14 MH The [facility] CHEM PANEL Creatinine 1.42 0.50 - 02/14 MH The Lvl 1.40 [facility] CHEM PANEL eGFR 51 09 Result MH Comment: [place] eGFR is calculated using the CKD-EPI formula. [...] 0.2 - 1.3 02/13 Result The Comment: [facility] reviewed all results 02/14/2016 06:35 [facility] CHEM PANEL ALT 25 0 - 65 02/13 The [facility] CHEM PANEL AST 15 0 - 37 02/13 The [facility] CHEM PANEL Alk Phos 62 39 - 136 02/13 The [facility] CHEM PANEL Globulin 4.8 2.7 - 4.2 02/13 The [facility] CHEM PANEL A/G Ratio 0.5 0.7 - 1.6 02/13 The [facility] CHEM PANEL Calcium Lvl 9.0 8.5 - 10.5 02/13 The [facility] CHEM PANEL Glucose Lvl 109 70 - 99 02/13 The [facility] CHEM PANEL CO2 24 24 - 32 02/13 The [facility] CHEM PANEL Chloride Lvl 101 95 - 109 02/13 The [facility] CHEM PANEL BUN 17 7 - 22 02/13 The [facility] CHEM PANEL Potassium 4.1 3.5 - 5.1 02/13 The Lvl /2015 [facility] CHEM PANEL AGAP 14.1 10.0 - 02/13 The 20.0 [facility] CHEM PANEL Albumin Lvl 2.3 3.5 - 5.0 02/13 The [facility] CHEM PANEL Total 7.1 6.4 - 8.4 02/13 The Protein [facility] CHEM PANEL Creatinine 1.55 0.50 - 02/13 The Lvl 1.40 [facility] CHEM PANEL Sodium Lvl 135 135 - 145 02/13 The [facility] CHEM PANEL B/C Ratio 11 6 - 25 02/13 The [facility] HEMATOLOGY MPV 7.7 7.4 - 10.4 02/13 The [facility] HEMATOLOGY Hct 25.4 42.0 - 02/13 The 54.0 [facility] HEMATOLOGY MCH 32.7 27.0 - 02/13 The 31.0 [facility] HEMATOLOGY MCV 96.6 80.0 - 02/13 The 94.0 [facility] HEMATOLOGY Platelet 296 133 - 450 02/13 The [facility] HEMATOLOGY RDW 14.7 11.5 - 02/13 The 14.5 [facility] HEMATOLOGY MCHC 33.8 32.0 - 02/13 MH The 36.0 [facility] HEMATOLOGY WBC 8.4 3.7 - 10.4 02/13 The [facility] HEMATOLOGY Hgb 8.6 14.0 - 02/13 The 18.0 [facility] HEMATOLOGY RBC 2.63 4.70 - 02/13 The 6.10 [facility] HEMATOLOGY Lymphocytes 1.5 1.0 - 5.5 02/13 MH The # [facility] HEMATOLOGY Eosinophils 0.2 0.0 - 0.5 02/13 MH The # [facility] HEMATOLOGY Monocytes # 0.8 0.0 - 0.8 02/13 The [facility] HEMATOLOGY Basophils # 0.1 0.0 - 0.2 02/13 The [facility] HEMATOLOGY Monocytes 9.9 2.0 - 12.0 02/13 The [facility] HEMATOLOGY Lymphocytes 17.2 20.0 - 02/13 The 40.0 [facility] HEMATOLOGY Segs 69.8 45.0 - 02/13 The 75.0 [facility] HEMATOLOGY Eosinophils 2.2 0.0 - 4.0 02/13 The [facility] HEMATOLOGY Segs-Bands # 5.9 1.5 - 8.1 02/13 The [facility] HEMATOLOGY Basophils 0.9 0.0 - 1.0 02/13 The [facility] TOXICOLOGY Vanco Tr 14.8 02/13 The [facility] TOXICOLOGY Vanco Tr TND TBD 02/13 The [facility] CHEM PANEL Total 6.3 6.4 - 8.4 02/12 The Protein [facility] CHEM PANEL A/G Ratio 0.7 0.7 - 1.6 02/12 The [facility] CHEM PANEL B/C Ratio 12 6 - 25 02/12 The [facility] CHEM PANEL Globulin 3.8 2.7 - 4.2 02/12 The [facility] CHEM PANEL AST 12 0 - 37 02/12 The [facility] CHEM PANEL Alk Phos 61 39 - 136 02/12 The [facility] CHEM PANEL Albumin Lvl 2.5 3.5 - 5.0 / MH The [facility] CHEM PANEL ALT 26 0 - 65 02/12 MH The [facility] CHEM PANEL Bili Total 0.4 0.2 - 1.3 02/12 MH The [facility] CHEM PANEL AGAP 13.5 10.0 - 02/12 MH The 20.0 [facility] CHEM PANEL eGFR 57 02/12 Result Comment: [place] eGFR is calculated using the CKD-EPI formula. [...] CHEM PANEL CO2 27 24 - 32 02/12 MH The [facility] CHEM PANEL Calcium Lvl 8.7 8.5 - 10.5 02/12 MH The [facility] CHEM PANEL Chloride Lvl 100 95 - 109 02/12 MH The [facility] CHEM PANEL Potassium 4.5 3.5 - 5.1 02/12 MH The Lvl [facility] CHEM PANEL Creatinine 1.42 0.50 - 02/12 MH The Lvl 1.40 /2015 [facility] CHEM PANEL Sodium Lvl 136 135 - 145 02/12 MH The [facility] CHEM PANEL Glucose Lvl 105 70 - 99 02/12 The [facility] CHEM PANEL BUN 17 7 - 22 02/12 The [facility] TOXICOLOGY Vanco Tr TND TBD 02/12 MH The [facility] TOXICOLOGY Vanco Tr 9.3 02/12 The [facility] CHEM PANEL Phosphorus 4.9 2.5 - 4.5 02/11 MH The [facility] CHEM PANEL Magnesium 1.8 1.8 - 2.4 09/ MH The Lvl /2015 [facility] HEMATOLOGY Segs 70.5 45.0 - 02/11 MH The 75.0 /2015 [facility] HEMATOLOGY Lymphocytes 18.0 20.0 - 02/11 MH The 40.0 /2015 [facility] HEMATOLOGY Monocytes 9.7 2.0 - 12.0 02/11 The [facility] HEMATOLOGY Segs-Bands # 6.4 1.5 - 8.1 02/11 The [facility] HEMATOLOGY Lymphocytes 1.6 1.0 - 5.5 02/11 MH The # [facility] HEMATOLOGY Basophils 0.5 0.0 - 1.0 02/11 MH The [facility] HEMATOLOGY Eosinophils 1.3 0.0 - 4.0 02/11 MH The [facility] HEMATOLOGY Monocytes # 0.9 0.0 - 0.8 02/11 The [facility] HEMATOLOGY Eosinophils 0.1 0.0 - 0.5 02/11 MH The [facility] HEMATOLOGY Platelet 307 133 - 450 02/11 The [facility] HEMATOLOGY MPV 6.9 7.4 - 10.4 02/11 The [facility] HEMATOLOGY MCHC 33.9 32.0 - 02/11 The 36.0 [facility] HEMATOLOGY RDW 15.1 11.5 - 02/11 MH The 14.5 /2015 [facility] HEMATOLOGY RBC 2.69 4.70 - 02/11 The 6.10 /2015 [facility] HEMATOLOGY MCV 96.5 80.0 - 02/11 MH The 94.0 [facility] HEMATOLOGY WBC 9.1 3.7 - 10.4 02/11 The [facility] HEMATOLOGY Hgb 8.8 14.0 - 02/11 The 18.0 /2015 [facility] HEMATOLOGY Hct 26.0 42.0 - 02/11 MH The 54.0 /2015 [facility] HEMATOLOGY MCH 32.7 27.0 - 02/11 MH The 31.0 [facility] HEMATOLOGY Segs-Bands # 7.7 1.5 - 8.1 02/11 The [facility] HEMATOLOGY Basophils 1.5 0.0 - 1.0 09 The [facility] HEMATOLOGY Basophils # 0.2 0.0 - 0.2 09 MH The [facility] HEMATOLOGY Eosinophils 0.2 0.0 - 0.5 02/11 The # [facility] HEMATOLOGY Monocytes # 1.2 0.0 - 0.8 02/11 The [facility] HEMATOLOGY Segs 69.4 45.0 - 02/11 The 75.0 /2015 [facility] HEMATOLOGY Monocytes 10.5 2.0 - 12.0 02/11 The [facility] HEMATOLOGY Eosinophils 1.6 0.0 - 4.0 02/11 The [facility] HEMATOLOGY Lymphocytes 1.9 1.0 - 5.5 02/11 The # /2015 [facility] HEMATOLOGY Lymphocytes 17.0 20.0 - 02/11 The 40.0 /2015 [facility] HEMATOLOGY Hct 28.9 42.0 - 02/11 The 54.0 /2015 [facility] HEMATOLOGY MCHC 33.6 32.0 - 02/11 The 36.0 [facility] HEMATOLOGY RDW 14.6 11.5 - 02/11 The 14.5 [facility] HEMATOLOGY MCV 96.6 80.0 - 02/11 The 94.0 [facility] HEMATOLOGY MCH 32.4 27.0 - 02/11 The 31.0 /2015 [facility] HEMATOLOGY Hgb 9.7 14.0 - 02/11 The 18.0 [facility] HEMATOLOGY WBC 11.1 3.7 - 10.4 02/11 The [facility] HEMATOLOGY RBC 2.99 4.70 - 02/11 The 6.10 [facility] HEMATOLOGY Platelet 360 133 - 450 02/11 The [facility] HEMATOLOGY MPV 7.4 7.4 - 10.4 02/11 The [facility] TOXICOLOGY Vanco Tr 10.9 02/10 The [facility] TOXICOLOGY Vanco Tr TND TBD 02/10 The [facility] HEMATOLOGY Basophils # 0.1 0.0 - 0.2 02/09 The [facility] TOXICOLOGY Vanco Lvl 14.1 02/09 The [facility] HEMATOLOGY Sed Rate >100 0 - 15 02/08 The [facility] BLOOD BANK Antibody Negative 02/07 The RESULTS Scrn (02/08/16 5:38 AM) /2015 [facility] BLOOD BANK ABO/Rh B POS 02/07 The RESULTS [facility] CHEM PANEL Procalcitoni 0.11 0.00 - 02/07 The n Lvl 0.10 [facility] URINE AND UA Sq Epi None Seen 02/04 The STOOL /2015 [facility] URINE AND UA <=1.0 0.1 - 1.0 02/04 The STOOL Urobilinogen mg/dL /2015 [facility] URINE AND UA Leuk Est Negative Negative 02/04 The STOOL (02/05/16 12:36 AM) /2015 [facility] URINE AND UA Bacteria Occasional None Seen 02/04 Th e STOOL /HPF /HPF /2015 [facility] URINE AND UA WBC 1 0 - 5 02/04 The STOOL /2015 [facility] URINE AND UA Blood Negative Negative 02/04 The STOOL (02/05/16 12:36 AM) /2015 [facility] URINE AND UA Bili Negative Negative 02/04 The STOOL *NA* /[facility] (02/05/16 12:36 AM) URINE AND UA Nitrite Negative Negative 02/04 The STOOL (02/05/16 12:36 AM) /2015 [facility] URINE AND UA Glucose Negative Negative 02/04 The STOOL mg/dL mg/dL /2015 [facility] URINE AND UA Protein Negative Negative 02/04 The STOOL mg/dL mg/dL /2015 [facility] URINE AND UA Turbidity Clear Clear 02/04 The STOOL (02/05/16 12:36 AM) /2015 [facility] URINE AND UA pH 6.0 5.0 - 8.0 02/04 The STOOL /2015 [facility] URINE AND UA Color Light Yellow Yellow 02/04 The STOOL *NA* /2015 [facility] (02/05/16 12:36 AM) URINE AND UA Ketones Negative Negative 02/04 The STOOL mg/dL mg/dL /2015 [facility] URINE AND UA Spec Grav 1.006 <=1.030 02/04 The STOOL /2015 [facility] URINE AND UA Sq Epi None Seen 01/31 MH The STOOL /2015 [facility] URINE AND UA <=1.0 0.1 - 1.0 01/31 The STOOL Urobilinogen mg/dL /2015 [facility] URINE AND UA Blood Negative Negative 01/31 The STOOL (02/01/16 4:31 PM) /2015 [facility] URINE AND UA Nitrite Negative Negative 01/31 MH The STOOL (02/01/16 4:31 PM) /2016 [facility] URINE AND UA Leuk Est Negative Negative 01/31 The STOOL (02/01/16 4:31 PM) /2015 [facility] URINE AND UA WBC 1 0 - 5 01/31 MH The STOOL /2015 [facility] URINE AND UA Hyal Cast 3 0 - 2 01/31 MH The STOOL /2015 [facility] URINE AND UA pH 5.5 5.0 - 8.0 01/31 The STOOL /2015 [facility] URINE AND UA Glucose Negative Negative 01/31 MH The STOOL mg/dL mg/dL /2015 [facility] URINE AND UA Ketones Negative Negative 01/31 The STOOL mg/dL mg/dL /2015 [facility] URINE AND UA Bili Negative Negative 01/31 The STOOL *NA* /2015 [facility] (02/01/16 4:31 PM) URINE AND UA Protein Negative Negative 01/31 The STOOL mg/dL mg/dL [facility] URINE AND UA Color Yellow Yellow 01/31 The STOOL *NA* [facility] (02/01/16 4:31 PM) URINE AND UA Turbidity Clear Clear 01/31 The STOOL (02/01/16 4:31 PM) [facility] URINE AND UA Spec Grav 1.007 <=1.030 01/31 MH The STOOL /2015 [facility] URINE CHEM U Chloride 41 01/31 The [facility] URINE CHEM U Creatinine 70.40 01/31 The [facility] URINE CHEM U Sodium 38 01/31 The [facility] CARDIAC Troponin-I <0.02 0.00 - 01/30 The ENZYMES 0.40 [facility] CHEM PANEL Procalcitoni 0.13 0.00 - 01/30 The n Lvl 0.10 [facility] CHEM PANEL Lactic Acid 1.7 0.5 - 2.2 09 MH The Lvl /2015 [facility] CHEM PANEL Bili Total 0.4 0.2 - 1.3 01/30 The [facility] CHEM PANEL Total 7.7 6.4 - 8.4 01/30 MH The Protein /2015 [facility] CHEM PANEL AST 19 0 - 37 01/30 The [facility] CHEM PANEL ALT 23 0 - 65 01/30 The [facility] CHEM PANEL Alk Phos 58 39 - 136 09 The [facility] CHEM PANEL Albumin Lvl 2.8 3.5 - 5.0 09/ MH The /2015 [facility] CHEM PANEL A/G Ratio 0.6 0.7 - 1.6 09/ MH The [facility] CHEM PANEL Globulin 4.9 2.7 - 4.2 09/ MH The [facility] CHEM PANEL B/C Ratio 15 6 - 25 09/ MH The /2015 [facility] HEMATOLOGY PTT 42.4 22.9 - 09 MH The 35.8 /2015 [facility] HEMATOLOGY PT 14.6 12.0 - 09 MH The 14.7 /2015 [facility] HEMATOLOGY INR 1.11 0.85 - 09 MH The 1.17 [facility] LIPIDS VLDL 77 02/16 MH The [facility] LIPIDS HDL 29 >=61 mg/dL 02/16 MH The [facility] LIPIDS Chol 222 <=199 02/16 MH The mg/dL [facility] LIPIDS CHD Risk 7.66 4.00 - 02/16 MH The 7.30 [facility] LIPIDS Trig 384 <=149 02/16 MH The mg/dL [facility] LIPIDS LDL 116 <=99 mg/dL 02/16 MH The (Calculated) /2014 [facility] CARDIAC CK MB Index 0.8 0.0 - 2.5 02/16 MH The ENZYMES /2014 [facility] CARDIAC CK MB 0.6 0.5 - 3.6 02/16 MH The ENZYMES [facility] CARDIAC Troponin-I <0.02 0.00 - 02/16 MH The ENZYMES 0.40 /2014 [facility] CARDIAC Total CK 76 12 - 191 02/16 MH The ENZYMES [facility] CARDIAC Troponin-I <0.02 0.00 - 02/16 MH The ENZYMES 0.40 /2014 [facility] CARDIAC Total CK 89 12 - 191 02/16 MH The ENZYMES /2014 [facility] CARDIAC CK MB Index 1.0 0.0 - 2.5 02/16 MH The ENZYMES /2014 [facility] CARDIAC CK MB 0.9 0.5 - 3.6 02/16 MH The ENZYMES /2014 [facility] THYROID TSH 2.000 0.360 - 02/16 MH The PANEL 3.740 /2014 [facility] CARDIAC CK MB Index 0.8 0.0 - 2.5 02/15 MH The ENZYMES [facility] CARDIAC Troponin-I <0.02 0.00 - 02/15 MH The ENZYMES 0.40 /2014 [facility] CARDIAC Total CK 111 12 - 191 02/15 MH The ENZYMES /2014 [facility] CARDIAC CK MB 0.9 0.5 - 3.6 02/15 MH The ENZYMES /2014 [facility] CHEM PANEL eGFR 70 02/15 Result Comment: [place] eGFR is calculated using the CKD-EPI formula. [...] Alk Phos 87 39 - 136 02/15 The [facility] CHEM PANEL AST 23 0 - 37 02/15 MH The [facility] CHEM PANEL ALT 27 0 - 65 02/15 MH The [facility] CHEM PANEL Albumin Lvl 3.4 3.5 - 5.0 02/15 The [facility] CHEM PANEL Total 7.7 6.4 - 8.4 02/15 MH The Protein [facility] CHEM PANEL A/G Ratio 0.8 0.7 - 1.6 02/15 MH The [facility] CHEM PANEL Globulin 4.3 2.0 - 4.0 02/15 MH The [facility] CHEM PANEL B/C Ratio 6 6 - 25 02/15 MH The [facility] CHEM PANEL AGAP 11.8 10.0 - 02/15 MH The 20.0 [facility] CHEM PANEL Bili Total 0.4 0.2 - 1.3 02/15 The [facility] CHEM PANEL Calcium Lvl 9.2 8.5 - 10.5 02/15 The [facility] CHEM PANEL CO2 25 24 - 32 02/15 MH The [facility] CHEM PANEL Glucose Lvl 88 70 - 99 02/15 The [facility] CHEM PANEL Chloride Lvl 106 95 - 109 02/15 The [facility] CHEM PANEL Potassium 4.8 3.5 - 5.1 02/15 The [facility] CHEM PANEL Sodium Lvl 138 135 - 145 02/15 The [facility] CHEM PANEL Creatinine 1.2 0.5 - 1.4 02/15 The [facility] CHEM PANEL BUN 7 7 - 22 02/15 The [facility] CHEM PANEL Magnesium 2.0 1.8 - 2.4 02/15 The [facility] HEMATOLOGY Eosinophils 0.4 0.0 - 0.5 02/15 The # [facility] HEMATOLOGY Basophils # 0.0 0.0 - 0.2 02/15 The [facility] HEMATOLOGY Segs-Bands # 4.6 1.5 - 8.1 02/15 The [facility] HEMATOLOGY Monocytes # 0.8 0.0 - 0.8 02/15 The [facility] HEMATOLOGY Monocytes 10.3 2.0 - 12.0 02/15 The [facility] HEMATOLOGY Eosinophils 5.0 0.0 - 4.0 02/15 The [facility] HEMATOLOGY Basophils 0.4 0.0 - 1.0 02/15 The [facility] HEMATOLOGY Lymphocytes 25.7 20.0 - 02/15 The 40.0 [facility] HEMATOLOGY Lymphocytes 2.0 1.0 - 5.5 02/15 The # [facility] HEMATOLOGY Segs 58.6 45.0 - 02/15 The 75.0 [facility] HEMATOLOGY INR 1.00 0.85 - 02/15 The 1.17 [facility] HEMATOLOGY PT 13.5 12.0 - 02/15 The 14.7 [facility] HEMATOLOGY PTT 33.7 22.9 - 02/15 The 35.8 [facility] HEMATOLOGY Platelet 170 133 - 450 02/15 The [facility] HEMATOLOGY WBC 7.8 3.7 - 10.4 02/15 The [facility] HEMATOLOGY MCH 33.3 27.0 - 02/15 The 31.0 [facility] HEMATOLOGY RBC 4.62 4.70 - 02/15 The 6.10 [facility] HEMATOLOGY MCV 97.4 80.0 - 02/15 The 94.0 [facility] HEMATOLOGY Hgb 15.4 14.0 - 02/15 The 18.0 [facility] HEMATOLOGY Hct 45.0 42.0 - 02/15 The 54.0 [facility] HEMATOLOGY MCHC 34.2 32.0 - 02/15 The 36.0 [facility] HEMATOLOGY MPV 7.0 7.4 - 10.4 02/15 The /2014 [facility] HEMATOLOGY RDW 16.0 11.5 - 02/15 The 14. [facility] DRUG U Cocaine Negative Negative 01/23 The SCREEN Scr *NA* [facility] (01/23/15 3:10 PM) DRUG U Opiate Scr Negative Negative 01/23 The SCREEN /2014 [facility] (01/23/15 3:10 PM) DRUG U Cannab Scr Negative Negative 01/23 The SCREEN [facility] (01/23/15 3:10 PM) DRUG U Phencyc Negative Negative 01/23 The SCREEN Scr *NA* /2014 [facility] (01/23/15 3:10 PM) DRUG UDS Note See Note 01/23 The SCREEN (01/23/15 3:10 PM) /2014 [facility] DRUG U Shoshana Scr Negative Negative 01/23 The SCREEN *NA* [facility] (01/23/15 3:10 PM) DRUG U Benzodia Positive Negative 01/23 The SCREEN Scr *ABN* /2014 [facility] (01/23/15 3:10 PM) DRUG U Amph Scr Negative Negative 01/23 The SCREEN *NA* /2014 [facility] (01/23/15 3:10 PM) URINE AND UA <=1.0 0.1 - 1.0 01/23 The STOOL Urobilinogen mg/dL /2014 [facility] URINE AND UA Glucose Negative Negative 01/23 The STOOL mg/dL mg/dL [facility] URINE AND UA Sq Epi Few /LPF Few /LPF 01/23 The STOOL /2014 [facility] URINE AND UA Leuk Est Negative Negative 01/23 The STOOL (01/23/15 3:10 PM) /2014[facility] URINE AND UA Nitrite Negative Negative 01/23 MH The STOOL (01/23/15 3:10 PM) /2014 [facility] URINE AND UA Bacteria Occasional None Seen 01/23 Th e STOOL /HPF /HPF /2014 [facility] URINE AND UA RBC 3 0 - 2 01/23 MH The STOOL /2014 [facility] URINE AND UA WBC <1 0 - 5 01/23 MH The STOOL /2014 [facility] URINE AND UA Hyal Cast 5 0 - 2 01/23 The STOOL /2014 [facility] URINE AND UA Amorph Occasional None Seen 01/23 MH The STOOL Brisa /HPF /HPF /2014 [facility] URINE AND UA Mucus Few /LPF None Seen 01/23 The STOOL /LPF /2014 [facility] URINE AND UA Color Yellow Yellow 01/23 The STOOL *NA* /2014 [facility] (01/23/15 3:10 PM) URINE AND UA Protein 200 mg/dL Negative 01/23 MH The STOOL mg/dL [facility] URINE AND UA pH 6.0 5.0 - 8.0 01/23 The STOOL [facility] URINE AND UA Spec Grav 1.017 <=1.030 01/23 The STOOL [facility] URINE AND UA Turbidity Slight Clear 01/23 The STOOL *ABN* /2014 [facility] (01/23/15 3:10 PM) URINE AND UA Blood Moderate Negative 01/23 The STOOL *ABN* /2014 [facility] (01/23/15 3:10 PM) URINE AND UA Bili Negative Negative 01/23 The STOOL *NA* /2014 [facility] (01/23/15 3:10 PM) URINE AND UA Ketones Trace Negative 01/23 The STOOL mg/dL mg/dL [facility] URINE AND UA Sperm Occasional None Seen 01/23 MH The STOOL /HPF /HPF [facility] CARDIAC CK MB Index 0.7 0.0 - 2.5 01/23 The ENZYMES [facility] CARDIAC Troponin-I <0.02 0.00 - 01/23 MH The ENZYMES 0.40 [facility] CARDIAC Total CK 170 12 - 191 01/23 MH The ENZYMES [facility] CARDIAC CK MB 1.2 0.5 - 3.6 01/23 The ENZYMES [facility] CHEM PANEL eGFR 54 01/23 Result Comment: [place] eGFR is calculated using the CKD-EPI formula. [...] A/G Ratio 1.0 0.7 - 1.6 01/23 MH The [email or web address] CHEM PANEL AST 23 0 - 37 01/23 MH The [facility] CHEM PANEL Albumin Lvl 4.3 3.5 - 5.0 01/23 The [facility] CHEM PANEL ALT 39 0 - 65 01/23 MH The [facility] CHEM PANEL Total 8.8 6.4 - 8.4 01/23 MH The Protein [email or web address] CHEM PANEL Calcium Lvl 9.3 8.5 - 10.5 01/23 MH The [facility] CHEM PANEL AGAP 20.5 10.0 - 08 MH The 20.0 [email or web address] CHEM PANEL Globulin 4.5 2.0 - 4.0 01/23 [facility] CHEM PANEL B/C Ratio 10 6 - 25 01/23 [facility] CHEM PANEL Bili Total 0.5 0.2 - 1.3 01/23 [email or web address] CHEM PANEL Alk Phos 88 39 - 136 01/23 [email or web address] CHEM PANEL Potassium 4.5 3.5 - 5.1 01/23 [facility] CHEM PANEL Sodium Lvl 139 135 - 145 01/23 [facility] CHEM PANEL CO2 17 24 - 32 01/23 The [email or web address] CHEM PANEL Chloride Lvl 106 95 - 109 01/23 The [email or web address] CHEM PANEL Glucose Lvl 114 70 - 99 01/23 The [email or web address] CHEM PANEL Creatinine 1.5 0.5 - 1.4 01/23 [facility] CHEM PANEL BUN 15 7 - 22 01/23 [facility] HEMATOLOGY Segs 89.7 45.0 - 01/23 The 75.0 [facility] HEMATOLOGY Segs-Bands # 11.6 1.5 - 8.1 01/23 [facility] HEMATOLOGY Lymphocytes 0.8 1.0 - 5.5 01/23 The # [facility] HEMATOLOGY Lymphocytes 6.5 20.0 - 01/23 The 40.0 [facility] HEMATOLOGY Monocytes 3.2 2.0 - 12.0 01/23 [facility] HEMATOLOGY Monocytes # 0.4 0.0 - 0.8 01/23 [facility] HEMATOLOGY Eosinophils 0.0 0.0 - 0.5 01/23 [facility] HEMATOLOGY Basophils # 0.1 0.0 - 0.2 01/23 The [facility] HEMATOLOGY Eosinophils 0.2 0.0 - 4.0 01/23 The [facility] HEMATOLOGY Basophils 0.4 0.0 - 1.0 01/23 [facility] HEMATOLOGY PT 14.2 12.0 - 01/23 The 14. [facility] HEMATOLOGY INR 1.07 0.85 - 01/23 The 1.17 [facility] HEMATOLOGY PTT 31.2 22.9 - 01/23 The 35.8 [facility] HEMATOLOGY MPV 8.3 7.4 - 10.4 01/23 The [facility] HEMATOLOGY MCHC 32.8 32.0 - 01/23 The 36.0 [facility] HEMATOLOGY RDW 17.0 11.5 - 01/23 The 14. [facility] HEMATOLOGY Platelet 202 133 - 450 01/23 The [facility] HEMATOLOGY Hct 51.7 42.0 - 01/23 The 54.0 [facility] HEMATOLOGY MCV 97.9 80.0 - 01/23 The 94.0 [facility] HEMATOLOGY MCH 32.1 27.0 - 01/23 The 31.0 [facility] HEMATOLOGY Hgb 17.0 14.0 - 01/23 The 18.0 [facility] HEMATOLOGY WBC 12.9 3.7 - 10.4 01/23 [facility] HEMATOLOGY RBC 5.28 4.70 - 01/23 The 6.10 [facility] TOXICOLOGY Etoh (%) <0.003 01/23 [facility] TOXICOLOGY Ethanol Lvl <3 01/23 [facility] CHEM PANEL eGFR 71 11/20 <sup>1</sup>R HCA [...] Total 0.3 0.2 - 1.3 11/20 [facility] CHEM PANEL AST 18 0 - 37 11/20 [facility] CHEM PANEL Alk Phos 88 39 - 136 11/20 [facility] CHEM PANEL ALT 36 0 - 65 11/20 [facility] CHEM PANEL Albumin Lvl 4.0 3.5 - 5.0 11/20 [facility] CHEM PANEL Total 8.8 6.4 - 8.4 11/20 The [facility] CHEM PANEL CO2 22 24 - 32 11/20 The [facility] CHEM PANEL Calcium Lvl 9.5 8.5 - 10.5 11/20 [facility] CHEM PANEL Chloride Lvl 103 95 - 109 11/20 [facility] CHEM PANEL Sodium Lvl 135 135 - 145 11/20 The [facility] CHEM PANEL Potassium 4.2 3.5 - 5.1 11/20 [facility] CHEM PANEL Creatinine 1.2 0.5 - 1.4 11/20 [facility] CHEM PANEL Glucose Lvl 110 70 - 99 11/20 <sup>4</sup>I nterpretive [facility] Data: Adult reference range values reflect the clinical guidelines
of the [place] [employer]. CHEM PANEL BUN 7 7 - 22 11/20 [facility] CHEM PANEL Globulin 4.8 2.0 - 4.0 11/20 [facility] CHEM PANEL A/G Ratio 0.8 0.7 - 1.6 11/20 [facility] CHEM PANEL B/C Ratio 6 6 - 25 11/20 [facility] CHEM PANEL AGAP 14.2 10.0 - 11/20 The 20.0 [facility] HEMATOLOGY Eosinophils 3.2 0.0 - 4.0 11/20 The [facility] HEMATOLOGY Lymphocytes 16.7 20.0 - 11/20 The 40.0 [facility] HEMATOLOGY Monocytes 6.2 2.0 - 12.0 11/20 The [facility] HEMATOLOGY Segs 73.3 45.0 - 11/20 The 75.0 [facility] HEMATOLOGY Basophils 0.6 0.0 - 1.0 11/20 The [facility] HEMATOLOGY Basophils # 0.1 0.0 - 0.2 11/20 The [facility] HEMATOLOGY Eosinophils 0.3 0.0 - 0.5 11/20 The # [facility] HEMATOLOGY Monocytes # 0.6 0.0 - 0.8 11/20 [facility] HEMATOLOGY Lymphocytes 1.6 1.0 - 5.5 11/20 The [facility] HEMATOLOGY Segs-Bands # 6.8 1.5 - 8.1 11/20 [facility] HEMATOLOGY Platelet 170 133 - 450 11/20 The [facility] HEMATOLOGY MPV 7.6 7.4 - 10.4 11/20 The [facility] HEMATOLOGY MCHC 33.8 32.0 - 11/20 The 36.0 [facility] HEMATOLOGY RDW 14.2 11.5 - 11/20 The 14.5 [facility] HEMATOLOGY MCH 33.1 27.0 - 11/20 The 31.0 [facility] HEMATOLOGY MCV 97.9 80.0 - 11/20 The 94. [facility] HEMATOLOGY Hgb 14.2 14.0 - 11/20 The 18.0 [facility] HEMATOLOGY Hct 42.1 42.0 - 11/20 The 54. [place] HEMATOLOGY WBC 9.3 3.7 - 10.4 11/20 [place] HEMATOLOGY RBC 4.30 4.70 - 11/20 The [facility]. [place] TOXICOLOGY Vanco Tr TND unknown 11/20 [facility] TOXICOLOGY Vanco Tr 7.7 11/20 <sup>5</sup>I nterpretive [place] Data: Therapeutic Range:
Trough: 10 - 20 [...] Creatinine 1.7 0.5 - 1.4 11/17 [facility] [place] CHEM PANEL BUN 14 7 - 22 11/17 [facility] ELECTROLYT Potassium 4.3 3.5 - 5.1 11/17 The ES [place] HEMATOLOGY Hct 36.8 42.0 - 11/17 The [facility] [place] HEMATOLOGY MCV 97.6 80.0 - 11/17 The 94.0 [place] HEMATOLOGY MCH 33.2 27.0 - 11/17 The 31.0 [place] HEMATOLOGY Hgb 12.5 14.0 - 11/17 The 18.0 [place] HEMATOLOGY WBC 7.7 3.7 - 10.4 11/17 The [place] HEMATOLOGY RBC 3.77 4.70 - 11/17 The 6.10 [place] HEMATOLOGY RDW 14.0 11.5 - 11/17 The 14.5 [place] HEMATOLOGY Platelet 155 133 - 450 11/17 The [place] HEMATOLOGY MPV 7.7 7.4 - 10.4 11/17 The [place] HEMATOLOGY MCHC 34.0 32.0 - 11/17 The 36.0 [place] HEMATOLOGY Segs-Bands # 5.7 1.5 - 8.1 11/17 The [place] HEMATOLOGY Eosinophils 4.3 0.0 - 4.0 11/17 The [place] HEMATOLOGY Basophils # 0.0 0.0 - 0.2 11/17 The [place] HEMATOLOGY Basophils 0.3 0.0 - 1.0 11/17 The [place] HEMATOLOGY Monocytes 5.1 2.0 - 12.0 11/17 The [place] HEMATOLOGY Lymphocytes 16.3 20.0 - 11/17 The 40.0 [place] HEMATOLOGY Lymphocytes 1.2 1.0 - 5.5 11/17 The [place] HEMATOLOGY Eosinophils 0.3 0.0 - 0.5 11/17 The # [place] HEMATOLOGY Monocytes # 0.4 0.0 - 0.8 11/17 The [place] HEMATOLOGY Segs 74.0 45.0 - 11/17 The 75.0 [place] TOXICOLOGY Vanco Tr TND unknown 11/17 The [place] TOXICOLOGY Vanco Tr 24.4 11/17 <sup>6</sup>I nterpretive [place] Data: Therapeutic Range:
Trough: 10 - 20 [...] Creatinine 1.5 0.5 - 1.4 11/13 The [place] CHEM PANEL BUN 11 7 - 22 11/13 [place] ELECTROLYT Potassium 4.5 3.5 - 5.1 11/13 The [place] HEMATOLOGY MCH 32.7 27.0 - 11/13 The 31.0 [place] HEMATOLOGY MCHC 33.6 32.0 - 11/13 The 36.0 [place] HEMATOLOGY Platelet 186 133 - 450 11/13 [place] HEMATOLOGY RDW 14.0 11.5 - 11/13 The 14.5 [place] HEMATOLOGY MPV 7.4 7.4 - 10.4 11/13 [place] HEMATOLOGY Hgb 12.2 14.0 - 11/13 The 18.0 [place] HEMATOLOGY RBC 3.73 4.70 - 11/13 The 6.10 [place] HEMATOLOGY MCV 97.6 80.0 - 11/13 The 94.0 [place] HEMATOLOGY Hct 36.4 42.0 - 11/13 The 54.0 [place] HEMATOLOGY WBC 9.7 3.7 - 10.4 11/13 [place] HEMATOLOGY Basophils # 0.1 0.0 - 0.2 11/13 [place] HEMATOLOGY Lymphocytes 2.0 1.0 - 5.5 11/13 The # [place] HEMATOLOGY Monocytes # 0.7 0.0 - 0.8 11/13 The [place] HEMATOLOGY Eosinophils 0.4 0.0 - 0.5 11/13 The [place] HEMATOLOGY Basophils 0.6 0.0 - 1.0 11/13 The [place] HEMATOLOGY Segs-Bands # 6.6 1.5 - 8.1 11/13 The [place] HEMATOLOGY Lymphocytes 20.5 20.0 - 11/13 The 40.0 [place] HEMATOLOGY Monocytes 7.3 2.0 - 12.0 11/13 The [place] HEMATOLOGY Eosinophils 3.7 0.0 - 4.0 11/13 The [place] HEMATOLOGY Segs 67.9 45.0 - 11/13 The 75.0 [place] TOXICOLOGY Vanco Tr TND NA 11/13 The [place] TOXICOLOGY Vanco Tr 24.1 11/13 <sup>7</sup>I nterpretive [place] Data: Therapeutic Range:
Trough: 10 - 20 ug/mL
Peak: 20 - 40 ug/mL
Potential Toxicity: >80 ug/mL Pathology Reports No Data Provided for This Section Diagnostic Reports Report Value Date Source Ext Lower Venous Doppler Study: Ext Lower Venous Dopp ler Bil US 03/13/2016 11:06 PM CDT 03/13/2016 [facility] Ordering Physician: Blanche Diaz MD Clinical Indication: Pain, L imb. 50-year-old with bilateral lower extremity pain, worse on the left than the right. Comparison: None TECHNIQUE: Sonographic evaluation of th e bilateral lower extremity veins is performed using high resolution B-mode imaging, along with pulse and color Doppler imaging. FINDINGS: Normal, spontaneous, phasic flow with normal augmentation and compression is identified in the bilateral common femoral, superficial femoral and popliteal veins. Spontaneous, phasic flow is present in t he external iliac, greater saphenous and posteri or tibial veins. IMPRESSION: Negative bilateral lower ext remity venous Doppler ultrasound, with no evidence for deep venous thrombosis. SL: [id number] Chest 1view DX Study: Chest 1view DX 03/13/2016 11:18 PM CDT [facility] Ordering Physician: Blanche Diaz MD Clinical Indication: Fever Comparison: February 15, 2016 FINDINGS: A right arm PICC l ine catheter is present, with tip projecting over the distal SVC. The lungs are adequately expanded and clear. There is no evidence for alveolar consolidation, pleural effusion, pulmonary edema or pneumothorax. The cardiomediastinal silhouette is within reggie l limits. No acute osseous abnormality is seen. Soft tissu es are unremarkable. IMPRESSION: A right arm PICC line cathet er is present with tip overlying the distal SVC. There is no pneumothorax. No acute cardiopulmonary disease. SL: [id number] Chest 1view DX Clinical Indication: Fever; 02/15/2016 [facility] Comparison: 02/15/2015 FINDINGS: AP chest radiographs shows n ormal lung volumes without interstitial or airspace opacities, pleural effusions or pneumothorax. The heart size and pulmonary vasculature are normal. The trachea is midline. There are no clinically significant osseous abnormalities noted. IMPRESSION: No chest radiographic evidence of acute cardiopu lmonary disease. SL: [id number] Foot series DX Clinical Indication: Pain and swelling. Post robert luanne. 02/13/2016 [facility] Comparison: 01/31/2016. FINDINGS: The 4 views of the foot show interval postsurgical changes status post transmetatarsal amputations at the level of the proximal metatarsals. Soft tissue swelling and soft tissue gas is noted at the stum p site, related to the recen t surgery. The mid tarsal joints and subtalar joint show mild degenerative changes. Small plantar calcaneal spur is noted. Follow-up radiographs may be obtained for comple te assessment. IMPRESSION: 1. Interval postsurgical riya nges of the right foot status post transmetatarsal amputation, as noted above. SL: [id number] Abdominal Aorta with Clinical Indication: Gangrene; right fo ot gangrene. 02/03/2016 [facility] runoff CTA Comparison: None TECHNIQUE: CT angiography of the abdomen, pelvis, and bilateral lower extremities was performed after administration of iodinated contrast. Coronal and sagittal reconstructions were obtained. 3-D recons truction imaging, MIP with p ostprocessing was also performed of the arterial vessels. IV CONTRAST: [address] Radiation Dose DLP 1418 mGy-cm FINDINGS: ARTERIAL EVALUATION: Advanced multifocal atherosc lerosis of the infrarenal aorta. No evidence of aneurysm or dissection. Multifocal atherosclerosis t hroughout the celiac axis, superior and inferior mesenteric arteries without significant focal stenosis. The peripheral the cerebral branches are patent. Atherosclerotic plaque is se en in the bilateral renal arteries and intrarenal branches, without CT evidence of renal artery stenosis. RIGHT LOWER EXTREMITY: Aortoiliac inflow: The commo n iliac and external iliac arteries demonstrate advanced multifocal atherosclerosis without significant stenosis or occlusion. Femoral-popliteal outflow: T here is a severe focal stenosis of the right common femoral artery (greater than 80%), which extends into the proximal SFA. The PFA is patent. There is severe multifocal athe rosclerosis throughout the c ourse of the right SFA with multifocal stenosis. No definite areas of occlusion. Moderate atherosclerosis of the popliteal artery without definite focal stenosis. Infrapopliteal runoff: The a nterior tibial, posterior tibial, and peroneal arteries are patent. The dosalis pedis artery is patent. LEFT LOWER EXTREMITY: Aortoiliac inflow: The commo n iliac and external iliac arteries demonstrate advanced multifocal atherosclerosis without significant stenosis or occlusion. Femoral-popliteal outflow: S evere multifocal atherosclerosis is seen, and and superficial femoral artery. The PFA is patent. Moderate atherosclerosis of the popliteal artery without focal stenosis. Infrapopliteal runoff: The a nterior tibial, posterior tibial, and peroneal arteries are patent. The dosalis pedis artery is patent. VISUALIZED LUNG BASES: Unremarkable. ABDOMINAL SOLID ORGANS: The arterial phase contrast-enhanced images of the liver, spleen, pancreas, kidneys and adrenals are unremarkable. The gallbladder is present. PERITONEUM AND RETROPERITONE UM: There is no retroperitoneal or abdominal lymphadenopathy. There is no abdominal ascites. STOMACH AND BOWEL: No eviden ce of bowel obstruction. No bowel wall thickening or perienteric inflammation. BLADDER: The bladder is unremarkable. OSSEOUS STRUCTURES: Advanced multifocal degenerative disc disease of the lumbar spine. Prior amputation of the distal right 1st and 2nd ray. Soft tissue ulceration overlying the 1st metatarsal stump wit h soft tissue ulceration shawn ng the plantar aspect of the lateral foot and soft tissue gas. Metacarpal phalangeal joint. IMPRESSION: 1. Focal severe stenosis of the right common femoral artery (greater than 80%). 2. Severe multifocal athero sclerosis throughout the superficial femoral arteries bilaterally with preserved popliteal and three-vessel runoff below the knee. 3. Advanced multifocal athe rosclerosis of the aorta. No aneurysm or dissection. 4. Soft tissue ulceration o f the distal right foot with prior amputation of the distal 1st and 2nd rays. Soft tissue gas adjacent to the 5th metatarsal head and 5th MCP is concerning for osteomyelitis. SL: [id number] Retroperitoneal limited Clinical Indication: Renal insufficiency 02/01/2016 [facility] US Comparison: None TECHNIQUE: Multiple longitudinal and tr ansverse real time sonographic images of the kidneys and urinary bladder are obtained. FINDINGS: KIDNEY: The right kidney measures 10.2 cm. The left kidney measures 11.8 cm. Both kidneys demonstrate nor mal echotexture. No solid renal masses. No echogenic [...] with hematuria or urinary tract infection. SL: [id number] Ext Lower Arterial Clinical Indication: Right leg claudicat ion and leg ulcer. 01/31/2016 [facility] Doppler unilat US Comparison: None TECHNIQUE: Sonographic evalu ation of the right lower extremity arteries was performed with grayscale and color Doppler imaging with standard technique. FINDINGS: RIGHT: NIPPLE THREADER: Monophasic waveforms with severely decrease d peak systolic velocities. SFA: Monophasic waveforms. S pectral broadening. Mildly decreased peak systolic velocities. This may be related to collateral flow. POP: Monophasic waveforms. S pectral broadening with moderately decreased peak systolic velocities. BATCH RECORDS CLERK: Monophasic waveforms. S pectral broadening with severely decreased peak systolic velocities. ADAMA: Monophasic waveforms. S pectral broadening with moderate to severely decreased peak systolic velocities. DP: Monophasic waveforms. Sp ectral broadening with severely decreased peak systolic velocities. Recommended CTA, MRA or conventional angiography for complete assessment. IMPRESSION: 1. Severely decreased peak s ystolic velocities of the right common femoral artery, which may be related to severe stenosis or near occlusion. 2. Monophasic waveforms thro ughout the right lower extremity with spectral broadening of the waveforms. Mild superficial femoral artery, moderate popliteal artery, severe posterior tibial artery, modera te to severe anterior tibial artery and severe dorsalis pedis artery decreased peak systolic velocities. These findings may be related to collateral flow with superimposed other distal areas of arterial occlusive disease. Recommen ded CTA, MRA or conventional angiography for complete assessment. SL: [id number] Foot series DX Clinical Indication: Pain an d swelling , status post amputation 4 years ago 01/31/2016 [facility] Comparison: None FINDINGS: 3 views of the right foot. T ransmetatarsal 1st and 2nd ray amputation. No erosive change or periostitis to suggest osteomyelitis of the metatarsal stumps. No acute fracture or dislocation. No soft tissue gas or radiopaque foreign body. IMPRESSION: Postoperative change. No acute osseous changes. If there is continued concer n, MRI (preferred) or three-phase bone scan of the right foot may be beneficial. SL: [id number] Chest 2 views DX NAME: REMEDIOS SANCHEZ 02/15/2015 [facility] : 1965 SEX: M 78 Ordering Physician: Jaciel De Chest 2 views : Feb 15, 2015 01:43:00 PM. CLINICAL INDICATION: chest pain; smoker / See Clinic Indication Comparison Examination: October 20, 2013. FINDINGS: The PA and lateral chest rad iographs show normal lung volumes without consolidations, interstitial opacities, pleural effusions or pneumothorax. The heart size and pulmonary vasculature are normal. The mediastinal contour appears unremarkable. The trachea is midline. There are no clinically significant osseous abnormalities noted. IMPRESSION: 1. No acute cardiopulmonary disease. SL: 24 Wrist complete DX NAME: REMEDIOS SANCHEZ 02/09/2015 [facility] : 1965 SEX: M 78 Ordering Physician: Víctor Wasserman Wrist complete ( min.3 views) : Feb 09, 2015 03 :45:00 PM. CLINICAL INDICATION: Pain and swelling / See Clinic Indication Comparison Examination: None. FINDINGS: Four views of the left wrist were perf ormed. No evidence of acute fractur e or dislocation. No destructive osseous lesions seen. Overlying soft tissues are unremarkable. Follow-up radiographs are re commended in 7-10 days to exclude an occult fracture if clinical symptoms persist. IMPRESSION: 1. No acute osseous injury of the left wrist. SL: [address] Name: REMEDIOS SANCHEZ 01/23/2015 [facility] : 1965 SEX: M Ordering Physician: Tim Fry Brain wo contrast CT : Jan 23, 2015 03:04:00 PM. CLINICAL INDICATION: Seizures Comparison Examination: None 2.[address] images are o btained from the skull base to the vertex. Sagittal and coronal reformats are acquired. Total examined DLP is 1180.2 mgy-CM. A small region of decreased attenuation is present in the genu of the corpus callosum on the left, associated with ex vacuo dilatation of the left frontal horn. The appearance could reflect ischemic riya nge, however, given the loca tion, demyelination should be considered. No additional areas of abnormal density are identified within the cerebral or cerebellar hemispheres. The mace-white junction is int act. There is no evidence fo r intracranial mass, mass effect or extra-axial fluid collection. No intracranial hemorrhage is seen. The skull is intact. Mild mu cosal thickening is present in the inferior left maxillary antrum. Moderate bilateral ethmoid, mild right sphenoid and mild bilateral frontal sinus opacification is present. Mastoids are clear. Orbits are grossly unremarka ble. IMPRESSION: Is a small focus of decrease d attenuation in the genu of the corpus callosum on the left, measuring approximately 1.5 x 0.5 x 0.5 cm. This is associated with ex vacuo dilatation of the frontal horn of t he left lateral ventricle. T he appearance is nonspecific and could reflect chronic ischemic change; there is evidence for minimal chronic small vessel ischemic disease in the frontal white matter. Given the location within the cor pus callosum, however, demyelination should be considered. MRI [...] Comments Source Systolic (mm Hg) 84 04/05/2016 [facility] Diastolic (mm Hg) 47 04/05/2016 [facility] [place] Respitory Rate 18 04/05/2016 [facility] Heart Rate 76 04/05/2016 [facility] Systolic (mm Hg) 80 04/05/2016 [facility] Diastolic (mm Hg) 49 04/05/2016 [facility] [place] Respitory Rate 18 04/05/2016 [facility] Heart Rate 73 04/05/2016 [facility] [place] [facility] Respitory Rate 18 04/05/2016 [facility] [place] Heart Rate 72 04/05/2016 [facility] [place] [facility] Systolic (mm Hg) 79 04/05/2016 [facility] [place] Diastolic (mm Hg) 42 04/05/2016 [facility] [place] Temperature Oral (F) 97.7 F 04/05/2016 [place] Temperature Oral (F) 97.7 F 04/05/2016 [place] Temperature Oral (F) 98.2 F 04/05/2016 [place] Weight 98.6 04/05/2016 [facility] [place] BMI Calculated 28.81 04/05/2016 [facility] [place] Height 185 cm 04/05/2016 [facility] [place] [facility] Respitory Rate 18 03/14/2016 [facility] [place] Systolic (mm Hg) 119 03/14/2016 [facility] [place] Diastolic (mm Hg) 63 03/14/2016 [facility] [place] Systolic (mm Hg) 124 03/14/2016 [facility] [place] Diastolic (mm Hg) 58 03/14/2016 [facility] [place] Respitory Rate 16 03/14/2016 [facility] [place] Temperature Oral (F) 98.8 F 03/14/2016 [place] Respitory Rate 18 03/14/2016 [facility] [place] Systolic (mm Hg) 129 03/14/2016 [facility] [place] Diastolic (mm Hg) 62 03/14/2016 [facility] [place] Temperature Oral (F) 98.7 F 03/14/2016 [place] Heart Rate 95 03/14/2016 [facility] [place] BMI Calculated 28.69 03/13/2016 [facility] [place] Weight 98.636 03/13/2016 [facility] [place] Temperature Oral (F) 98.6 F 03/13/2016 [place] Height 185.42 cm 03/13/2016 [facility] [place] Heart Rate 105 03/13/2016 [facility] [place] [facility] Heart Rate 111 02/18/2016 [facility] [place] Temperature Oral (F) 98.8 F 02/18/2016 [place] Respitory Rate 18 02/18/2016 [facility] [place] Systolic (mm Hg) 110 02/18/2016 [facility] [place] Diastolic (mm Hg) 56 02/18/2016 [facility] [place] Temperature Oral (F) 98.3 F 02/18/2016 [place] Heart Rate 97 02/18/2016 [facility] [place] Systolic (mm Hg) 94 02/18/2016 [facility] [place] Diastolic (mm Hg) 56 02/18/2016 [facility] [place] Respitory Rate 18 02/18/2016 [facility] [place] Temperature Oral (F) 98.2 F 02/18/2016 [place] Heart Rate 86 02/18/2016 [facility] [place] Systolic (mm Hg) 112 02/18/2016 [facility] [place] Diastolic (mm Hg) 54 02/18/2016 [facility] [place] Respitory Rate 18 02/18/2016 [facility] [place] Weight 96.023 02/08/2016 [facility] [place] BMI Calculated 28.69 02/08/2016 [facility] [place] Weight 98.636 02/08/2016 [facility] [place] Height 185.42 cm 02/08/2016 [facility] [place] Weight 97.273 02/01/2016 [facility] [place] BMI Calculated 28.29 02/01/2016 [facility] [place] Height 185.42 cm 02/01/2016 [facility] [place] Height 185.42 cm 01/31/2016 [facility] [place] BMI Calculated 27.63 01/31/2016 [facility] [place] Respitory Rate 16 02/16/2015 [facility] [place] Temperature Oral (F) 98.0 F 02/16/2015 [place] Respitory Rate 18 02/16/2015 [facility] [place] Heart Rate 77 02/16/2015 [facility] [place] Systolic (mm Hg) 175 02/16/2015 [facility] [place] Diastolic (mm Hg) 94 02/16/2015 [facility] [place] Temperature Oral (F) 98.2 F 02/16/2015 [place] Heart Rate 74 02/16/2015 [facility] [place] Systolic (mm Hg) 164 02/16/2015 [facility] [place] Diastolic (mm Hg) 89 02/16/2015 [facility] [place] Respitory Rate 18 02/16/2015 [facility] [place] Temperature Oral (F) 97.5 F 02/16/2015 [place] Systolic (mm Hg) 145 02/16/2015 [facility] [place] Diastolic (mm Hg) 83 02/16/2015 [facility] [place] Heart Rate 72 02/16/2015 [facility] [place] Height 185.42 cm 02/16/2015 [facility] [place] BMI Calculated 28.58 02/16/2015 [facility] [place] Weight 98.267 02/16/2015 [facility] [place] Weight 13.636 02/15/2015 [facility] [place] BMI Calculated 3.97 02/15/2015 [facility] [place] [facility] Height 185.42 cm 02/15/2015 [facility] [place] Temperature Oral (F) 98.2 F 02/09/2015 [place] Heart Rate 88 02/09/2015 [facility] [place] Respitory Rate 18 02/09/2015 [facility] [place] Systolic (mm Hg) 173 02/09/2015 [facility] [place] Diastolic (mm Hg) 82 02/09/2015 [facility] [place] BMI Calculated 31.47 02/09/2015 [facility] [place] Weight 108.182 02/09/2015 [facility] [place] Height 185.42 cm 02/09/2015 [facility] [place] Systolic (mm Hg) 189 02/09/2015 [facility] [place] Diastolic (mm Hg) 97 02/09/2015 [facility] [place] Heart Rate 77 02/09/2015 [facility] [place] Respitory Rate 16 02/09/2015 [facility] [place] Systolic (mm Hg) 172 01/23/2015 [facility] [place] Diastolic (mm Hg) 79 01/23/2015 [facility] [place] Systolic (mm Hg) 174 01/23/2015 [facility] [place] Diastolic (mm Hg) 92 01/23/2015 [facility] [place] Systolic (mm Hg) 184 01/23/2015 [facility] [place] Diastolic (mm Hg) 86 01/23/2015 [facility] [place] Respitory Rate 18 01/23/2015 [facility] [place] Weight 104.545 01/23/2015 [facility] [place] Height 185.42 cm 01/23/2015 [facility] [place] BMI Calculated 30.41 01/23/2015 [facility] [place] Respitory Rate 18 01/23/2015 [facility] [place] Heart Rate 92 01/23/2015 [facility] Temperature Oral (F) 98.5 F 01/23/2015 [facility] Encounters Location Location Encounter Encounter Reason Attending ADM DC Stat us Source Details Type Number For Provider Date Date Visit [facility] Recurring [id number] Nabeel 10/31 11/30 [facility] [facility]2013 [facility] [place] [facility] Emergency [id number] Edozie 01/23 01/23 [facility] [place] /2014 [facility] d [facility] EC Emergency [id number] Az Alana 02/09 02/09 [facility] /2014 [facility] [place] OBS [id number] Juan 02/15 02/16 [facility] [place] /2014 [facility] The Patient [facility] Inpatient [id number] Abbas 01/30 02/17 [facility] [place] /2015 [facility] [place] Emergency [id number] Blanche 03/13 03/14 [facility] [place] /2015 [facility] [place] Outpatient [id number] Abbas 04/05 04/06 [facility] /2015 [facility] Procedures Procedure Code Date Perfomer Comments Source Amputation of toe [id number] [facility] Amputation of [id number] 2 toes The toe<sup>1</sup> [place] Blood transfusion [id number] [facility] Assessment and Plan Assessment and Plan Date Source Extracted from:Title: id 02/18/2016 [facility] Author: Rogerio Ruggiero DO Date: 02/18/16 Impression and Plan The patient was seen and examined by me with the resident/INFORMATION RESOURCES MANAGER/PA and I agree with the History/Exam documented. Extracted from:Title: Dr. Eugene Podiatry Consultation Author: Lise Eugene DPM Date: 02/10/16 Impression and Plan Diagnosis Gangrene of foot ([id number] I96, Working, Medical). PVD (peripheral vascular disease) ([id number]-RG I73.9, Working, Medical). Course: Worsening. - PLAN FOR OR ON SUNDAY MORNING FOR A TRANSMETATARSAL AMPUTATION AT 8AM WITH DR. JOSE - NPO/CONSENT/HOLD ANTICOAG MEDS PRIOR TO SX - ALTERNATIVES, RISKS AND COMPLICATIONS WERE DISCUSSED IN DETAIL WITH THE PATIENT AT BEDSIDE TODAY. HE UNDERSTANDS THAT NO GUARANTEES CAN BE MADE TO THE OUT COME OF THE PROCEDURE. HE ALSO UNDERSTANDS TH AT IF HE CONTINUES TO SMOKE OR USE NICOT DANY PRODUCTS THIS SURGERY WILL FAIL AND WILL RESULT IN THE LOSS OF HIS LEG. - I ALSO EXPRESSED TO HIM THAT A BKA WOU LD BE THE BEST TREATMENT ALTERNATIVE FOR HIS PAIN. HE IS REFUSING A BKA AND WOULD LIKE TO TRY A TMA OR PARTIAL FOOT AMPUATATION TO STOP THE PAIN AND REMOVE THE GA NGRENE AND INFECTION. HE TOLD ME HE WOUL D QUIT SMOKING TO BE COMPLIANT WITH HIS TREATMENT AND UNDERSTANDS IF HE DOES NOT STOP SMOKING HE WILL LIKELY LOSE HIS LEG WITHIN THE YEAR. -NURSING TO APPLY BETADINE AND DSD DAILY -NWB right leg, use walker for assistance Extracted from:Title: Consult Note 02/16/2015 [facility] Author: Foreign Toscano MD Date: 02/16/15 Assessment/Plan 1.Angina pectoris Mi ruled out. An ec hocardiogram and a nuclear stress test were ordered. [...] History Date Source Social History TypeResponse 10/21/2013 [facility] Substance Abuse Previous Treatment: None. Alcohol Current, Type Beer, Wine, Liquor. Frequency: 1-2 times per month. Smoking Status Current every day smoker; Lives with ro eone who smokes; Cigarette Smoking Last 365 Days Yes; Reg Smoking Cessation Counseling Yes Family History No Data Provided for This Section Advance Directives No Data Provided for This Section Functional Status No Data Provided for This Section
--- OUTSIDE RECORDS SUMMARY | 2020-01-01 21:51 | XMS REPORT | Continuity of Care Document ---
:1965 Author Organization [facility] t Address [address] [place] [address] Care Team Providers Name Role Phone ARIF Attending Clinician Unavailable SANTIAGO SEGURA Attending Clinician Unavailable Jeff Pierce Attending Clinician Joseph Diaz Attending Clinician Unavailable Mike Torres Attending Clinician Sundar Warner Attending Clinician Anatoliy Fry Attending Clinician Hermes Gleason Attending Clinician ARIF Admitting Clinician Unavailable SANTIAGO SEGURA Admitting Clinician Unavailable Jeff Pierce Admitting Clinician Mike Torres Admitting Clinician Payers Payer Name Policy Type Policy Number Effective Date Expiration Date S ource Problems Condition Condition Condition Status Onset Resolution Last Treating Co mments Source Name Details Category Date Date Treatment Clinician Date Metabolic Metabolic Disease Active 2016-[address] [facility] acidosis acidosis 06-20 [facility] 00 [place] H/O ETOH H/O ETOH Disease [facility] 00 [place] Acute Acute Disease Active 2016-[address] [facility] kidney kidney 06-17 [facility] - injury injury 00:00: Medical 00 [place] Hypertensi Hypertensi Disease Active 2016-[address] [facility] [address] on, on, 06-17 [facility] - essential essential 00:00: Medi mari 00 Center Leukocytos Leukocytos Disease Active 2016-[address] is is 06-17 [facility] 00 [facility] Tongue Tongue Disease Active 2016-[address] [facility] laceration laceration 06-17 Evelyn kes - 00:00: Medical 00 Center Status Status Disease Active 2016-[address] [facility] epilepticu epilepticu 06-16 Evelyn kes - s s 00:00: Medical 00 Center ANEMIA Diagnosis Active 2015-052016-04-05 Mem oria 06-04 09:38:00 l ANEMIA 00:00: [place] 00 Active 04/04/2016 [facility] OTHER Diagnosis Active 2015-052016-03-13 Mem oria 19:39:00 l OTHER 00:00: [place] 00 Active 03/13/2016 [place] LEFT FOOT Diagnosis Active 2016-01-31 Memoria SORES 01-30 22:38:00 l LEFT 00:00: Kai FOOT SORES 00 Active 01/31/2016 [facility] FOOT Diagnosis Active 2016-02-12 Mem oria GANGRENE 01-30 20:08:00 l FOOT 00:00: Kai GANGRENE 00 Active 01/31/2016 [facility] CHEST PAIN Diagnosis Active 2015-02-15 Memoria 02-15 18:21:00 l CHEST 00:00: Kai PAIN 00 Active 02/15/2015 [facility] CP Diagnosis Active 2015-02-15 Mem oria 02-15 16:10:00 l CP 00:00: [place] 00 Active 02/15/2015 [place] LEFT WRIST Diagnosis Active 2015-02-09 Memoria PAIN 02-09 16:02:00 l LEFT 00:00: Kai WRIST PAIN 00 Active 02/09/2015 [facility] AMS Diagnosis Active 2015-01-23 Mem oria 01-23 15:36:00 l AMS 00:00: [place] 00 Active 01/23/2015 [facility] WOUND Diagnosis Active 2014-02-12 Mem oria INFECTION 10-20 13:06:00 l V WOUND 00:00: Kai NECFAS;CHR INFECTION 00 ONIC V OSTEOMY NECFAS;CHR ONIC OSTEOMY Active 10/20/2013 [place] Acute Problem Active 2016-04-08 Memor ia osteomyeli 03:42:03 l tis Acute [place] (disorder) osteomyeli tis (disorder) Active Problem 04/08/2016 [place] Congestive Problem Active 2016-04-08 M emoria heart 03:42:03 l failure [place] (disorder) Congestive heart failure (disorder) Active Problem 04/08/2016 [place] Hypertensi Problem Active 2016-04-08 M emoria ve 03:42:03 l disorder, Kai systemic Hypertensi arterial ve (disorder) disorder,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 (disorder) Active Problem 04/08/2016 [place] Bronchitis Problem Active 2016-04-08 M emoria (disorder) 03:42:03 l [place] Bronchitis (disorder) Active Problem 04/08/2016 [place] Chronic Problem Active 2016-04-08 Ed bandar obstructiv 03:42:03 l e lung Chronic Kai disease obstructiv (disorder) e lung disease (disorder) Active Problem 04/08/2016 [place] Epistaxis Problem Active 2016-04-08 Me moria (disorder) 03:42:03 l [place] Epistaxis (disorder) Active Problem 04/08/2016 [place] Seizure Problem Active 2016-04-08 Ed bandar (finding) 03:42:03 l Seizure [place] (finding) Active Problem 04/08/2016 [facility] History of Problem Active 2016-04-08 M emoria - 03:42:03 l infectious History Her cook disease of - (context-d infectious ependent disease category) (context-d ependent category) Active Problem 04/08/2016 [place] History of Problem Active 2016-04-08 M emoria amputation 03:42:03 l of lesser History Herm delisa toe of (situation amputation ) of lesser toe (situation ) Active Problem 04/08/2016 [facility] History of Problem Active 2016-04-08 M emoria - 03:42:03 l cardiovasc History Her cook ular of - disease cardiovasc (context-d ular ependent disease category) (context-d ependent category) Active Problem 04/08/2016 [place] Benign Problem Active 2016-04-08 Memor ia prostatic 03:42:03 l hyperplasi Benign Herm delisa a prostatic (disorder) hyperplasi a (disorder) Active Problem 04/08/2016 [facility] CELLULITIS Diagnosis Active 2014-02-12 Memoria OF FOOT 13:06:00 l [place] CELLULITIS OF FOOT Active [facility] AC Diagnosis Active 2014-02-12 Mem oria OSTEOMYELI 13:06:00 l TIS-UNSPEC AC Raudel n OSTEOMYELI TIS-UNSPEC Active [facility] CHEST PAIN Diagnosis Active 2015-02-15 Memoria NOS 18:21:00 l CHEST Kai PAIN NOS Active [facility] GANGRENE, Diagnosis Active 2016-02-12 Memoria NOT 20:08:00 l ELSEWHERE [place] CLASSIFIED GANGRENE, NOT ELSEWHERE CLASSIFIED Active [facility] ANEMIA, Diagnosis Active 2016-04-05 Me moria UNSPECIFIE 09:38:00 l D ANEMIA, Kai UNSPECIFIE D Active [facility] Discharge Problem 2015-052016-03-17 2016-03-17 Memoria Diagnosis: 0-18 03:02:37 03:02:37 l Acute on 05:00: [place] chronic Discharge 00 renal Diagnosis: failure Acute on chronic renal failure 03/14/2016 03/17/2016 [facility] Discharge Problem 2015-052016-03-17 2016-03-17 Memoria Diagnosis: 0-18 03:02:37 03:02:37 l Anemia 05:00: [place] Discharge 00 Diagnosis: Anemia 03/14/2016 03/17/2016 [facility] Discharge Problem 2015-052016-03-17 2016-03-17 Memoria Diagnosis: 0-18 03:02:37 03:02:37 l Post-opera 05:00: Raudel black tive pain Discharge 00 Diagnosis: Post-opera tive pain 03/14/2016 03/17/2016 [facility] Discharge Problem 2015-052016-03-17 2016-03-17 Memoria Diagnosis: 0-18 03:02:37 03:02:37 l Acute 05:00: [place] hypokalemi Discharge 00 a Diagnosis: Acute hypokalemi a 03/14/2016 03/17/2016 [facility] Discharge Problem 2015-02-19 2015-02-19 Memoria Diagnosis: 02-16 07:51:51 07:51:51 l Hyperlipid 14:36: Raudel n emia Discharge 09 Diagnosis: Hyperlipid emia 02/16/2015 02/19/2015 [facility] Discharge Problem 2015-02-19 2015-02-19 Memoria Diagnosis: 02-16 07:51:51 07:51:51 l Hypertensi 14:36: Raudel n on Discharge 00 Diagnosis: Hypertensi on 02/16/2015 02/19/2015 [facility] Discharge Problem 2015-02-19 2015-02-19 Memoria Diagnosis: 02-16 07:51:51 07:51:51 l Angina 14:35: [place] pectoris Discharge 54 Diagnosis: Angina pectoris 5 02/19/2015 [facility] Discharge Problem 2015-02-12 2015-02-[facility] Diagnosis: 02-09 09:59:31 09:59:31 l Wrist 05:00: [place] sprain Discharge 00 Diagnosis: Wrist sprain 02/09/2015 02/12/2015 [facility] Discharge Problem 2015-01-26 2015-01-26 Memoria Diagnosis: 01-23 02:07:27 02:07:27 l Epileptic 05:00: Kai seizure, Discharge 00 generalize Diagnosis: d Epileptic seizure, generalize d 01/23/2015 01/26/2015 [facility] Discharge Problem 2015-01-26 2015-01-26 Memoria Diagnosis: 01-23 02:07:27 02:07:27 l Cerebral 05:00: [place] seizure Discharge 00 Diagnosis: Cerebral seizure 01/23/2015 01/26/2015 [facility] Allergies, Adverse Reactions, Alerts Allergy Allergy Status Severity Reaction(s) Onset Inactive Treating Comm ents Source Name Type Date Date Clinician No Known DA Active U 2018-05 [facility] All[facility]ie 0-10 [facility] 00:[facility] [address] Morphine Propensi Active Other (See 2016-[address] ty to Comments) - [facility] - adverse 00:00: Medical reaction 00 Center s morphine morphine Active [facility] Social History Social Habit Start Date Stop Date Quantity Comments Source Sex Assigned At [facility] Cigarettes smoked 2017-04-16 2017-04-16 [facility] - current (pack per 00:00:00 00:00:00 Medical Center day) - Reported Social History 2013-10-21 2013-10-21 [facility] Myriam david 05:36:39 05:36:39 Smoking Status Start Date Stop Date Source Current every day smoker 2017-04-16 00:00:[address] [facility] Medications Ordered Filled Start Stop Current Ordering Indication Dosage Frequency Signature Comments Components Source Medication Medication Date Date Medication? Clinician (SIG) Name Name folic acid 2019- No 1mg QD Take [address] [facility] (FOLVITE) 1 -20 - tablet (1 Evelyn kes - MG tablet 00:00: 23:59 mg total) Me dical 00 :00 by mouth Center daily. thiamine 2019- No 100mg QD Take 1 [facility] MG -20 - tablet [facility] - tablet 00:00: 23:59 (100 mg Medical 00 :00 total) by Center mouth daily. levETIRAcet 2019- No 1000mg Q.5D Take [address] am (KEPPRA) -14 10- tablet [facility] - 1000 MG 00:00: 23:59 (1,000 mg Medi mari tablet 00 :00 total) by Center mouth 2 (two) times daily. lovastatin Yes 20mg QD Take [address] (MEVACOR) 5-19 by mouth [facility] - 20 MG 09:38: nightly. Medical tablet 15 Center aspirin/shawn Yes 2{packe Take [address] icylamide/c 5-19 t} packets by Evelyn magana (BC 09:38: mouth Medic al HEADACHE 15 daily as Center POWDER needed ORAL) (For headache and pain relief). VENTOLIN Yes 1{puff} Inhale [address] HFA 90 4-01 puff by [facility] - mcg/actuati 00:00: mouth via M edical on inhaler 00 inhaler 3 Cent er (three) times daily as needed for Shortness of Breath. lisinopril Yes 10mg QD Take [address] (PRINIVIL,Z 4- by mouth Luke s - ESTRIL) 10 00:00: daily. Medic al MG tablet 00 Center amLODIPine Yes 10mg QD Take [address] (NORVASC) 4- by mouth [facility] - 10 MG 00:00: daily. Medical tablet 00 Center Sodium 2015-05 Yes IVPB, 150 Memori a Chloride 1-09 ml/hr, l 0.9% IV 14:00: PRN, Start Herm delisa date: 04/05/16 8:00:00 REAL ESTATE REP, Duration: 30, 1,000 ml EPINEPHrine 2015-05 Yes Notes: Memoria - MEDICATION l 13:22: WASTE [place] 00 Product Size: 1 mg Product Wasted: ___ mg Solu-CORTEF 2015-05 Yes Notes: Ed bandar - (Same as: l 13:22: Solu-JOHN [place] F) Benadryl 2015-05 Yes Notes: Memoria 06-05 (Same as: l 13:22: Benadryl) [place] Sodium 2015-05 Yes IV, 0 Memoria Chloride 1-09 ml/hr, l 0.9% IV 13:21: PRN, PRN Raudel n 00 Blood Transfusio n, Start date: 04/05/16 7:21:00 [employer] REP, Duration: 30, 250 ml heparin 2015-05 Yes Notes: Memoria flush - (Same as: l 13:21: Heparin Lock Flush) BD Normal 2015-05 Yes Notes: Memori a Saline 06-05 (Same as: l Flush 13:21: BD Kai 00 Posiflush) Benadryl 2015-05 Yes Notes: Memoria 06-05 (Same as: l 13:21: Benadryl) Tylenol 2015-05 Yes Notes: Do Memor ia 06-05 not exceed l 13:20: 4 gm/day. Kai (Same as: Tylenol) Acetaminoph 2015-05 No Notes: Ed bandar en 325 MG / 0-18 (Same as: l Hydrocodone 11:34: [place] Denita nn Bitartrate 00 325/5) Do 5 MG Oral not exceed Tablet 4gm/day of [[place] acetaminop 5/325] hen. Acetaminoph 2015-05 No 1 tab, PO, Memoria en 300 MG / 0-18 Q4H, PRN l Codeine 09:54: Pain, X 2 Denita nn Phosphate 00 day, # 12 30 MG Oral tab, 0 Tablet Refill(s) [Tylenol with Codeine #3] Zofran 2015-05 No Notes: Memoria 0-18 (Same as: l 04:18: Zofran) MEDICATION WASTE Product Size: 4 mg Product Wasted: ___ mg Dilaudid 2015-05 No Notes: Memoria 0-18 Same as: l 04:18: Dilaudid Kai 00 Sodium 2015-05 No 500 mL, Memoria Chloride 0-18 500 ml/hr, l 0.154 04:18: Infuse Kai MEQ/ML 00 Over: 1 Injectable hr, Route: Solution IV, 500, Drug form: INJ, ONCE, Priority: STAT, Dosing Weight 98.636 kg, Start date: 03/13/16 23:18:00 CDT, Duration: 1 doses or times, Stop date: 03/13/16 23:18:00 CDT Oxycodone Yes 15 mg = 3 Mem oria Hydrochlori 02-17 tab, PO, l de 5 MG 17:22: Q4H, PRN Raudel n Oral Tablet Pain Score 7-10, 0 Refill(s) Oxycodone No Notes: Memori a Hydrochlori 02-17 (Same as: l de 5 MG 13:43: Roxicodone Herm delisa Oral Tablet ) Ceftriaxone No Notes: Ed bandar 02-16 (Same As: l 20:00: Rocephin). Use with 100 mL NS and infuse over 30 min MEDICATION WASTE Product Size: 2000 mg Product Wasted: ___ mg Albuterol Yes NEB, PRN, Mem oria 0.83 MG/ML 02-16 PRN l Inhalant 12:57: Respirator Her cook Solution 00 y Protocol, 0 Refill(s) chlorhexidi Yes 1 appl, Mem oria ne 02-16 BATHE, l gluconate 12:57: Q-M-W-F, 0 He rmann 40 MG/ML 00 Refill(s) Medicated Liquid Soap tamsulosin Yes 0.4 mg = 1 M emoria 0.4 mg oral 02-16 cap, PO, l capsule 12:57: After Kai 00 Dinner, 0 Refill(s) fluconazole Yes 200 mg = 2 Memoria 100 mg oral 02-16 tab, PO, l tablet 12:57: [id number], 0 Denita nn 00 Refill(s) pantoprazol Yes 40 mg = 1 M emoria e 40 mg - tab, PO, l oral 12:57: Before Kai enteric 00 Breakfast, coated 0 tablet Refill(s) Acetaminoph Yes 1 tab, PO, Memoria en 325 MG / 02-16 Q4H, PRN l Hydrocodone 12:57: Pain Score [place] Bitartrate 00 1-3, 0 5 MG Oral Refill(s) Tablet cefTRIAXone No Notes: Ed bandar + sodium 02-14 (Same As: l chloride 23:00: Rocephin). Her cook 0.9% INJ 00 Use with 100 mL 100 mL NS and infuse over 30 min MEDICATION WASTE Product Size: 2000 mg Product Wasted: ___ mg Flomax No Notes: Memoria 02-12 (Same As: l 22:00: Flomax) "Do Not Crush" vancomycin No 2001 mg: Me moria + sodium 18 infuse l chloride 11:00: over 2.5 Denita nn 0.9% INJ 00 hours 250 mL MEDICATION WASTE Product Size: 1000 mg Product Wasted: ___ mg Fluconazole No Notes: Ed bandar 02-11 (Same as: l 21:00: Diflucan) Dilaudid No Notes: Memoria 02-11 Same as: l 19:19: Dilaudid gabapentin No Notes: Memor ia 02-11 (Same as: l 18:00: Neurontin) Naloxone No Notes: Memoria 02-11 Same as l 14:59: Narcan Lorazepam No Notes: Memori a 02-11 (Same as: l 14:59: Ativan) Ondansetron No 4 mg, Memor ia 02-11 Route: l 14:59: IVP, ONCE, Dosing Weight 96.023, kg, PRN Nausea & Vomiting, Start date: 02/12/16 9:59:00 CDT Glycopyrrol No Notes: Ed bandar ate 02-11 (Same as: l 14:59: Robinul) Flumazenil No Notes: Memor ia 02-11 (Same as: l 14:59: Romazicon) Fentanyl No Notes: Memoria 02-11 (Same as: l 14:59: Sublimaze) Preservat vahid free. Hydralazine No Notes: Ed bandar 02-11 (Same as: l 14:59: Apresoline ) Push over 5 minutes Hydromorpho No Notes: Ed bandar ne 02-11 Same as: l 14:59: Dilaudid Labetalol No 10 mg, 2 Ed bandar 02-11 mL, Route: l 14:59: IVP, Drug form: INJ, Q5Min, Dosing Weight 96.023, kg, PRN Elevated BP, Start date: 02/12/16 9:59:00 CDT, Duration: 5 doses or times, Stop date: Limited # of times fentaNYL No Route: IV, Mem oria (ANES) 02-11 Drug form: l 13:40: INJ, ONCE, Stop date: 02/12/16 8:40:00 CDT propofol No Route: IV, Mem oria (ANES) 02-11 Drug form: l 13:40: INJ, ONCE, Stop date: 02/12/16 8:40:00 CDT lidocaine No Route: IV, Me moria (ANES) 02-11 Drug form: l 13:40: INJ, ONCE, Stop date: 02/12/16 8:40:00 CDT LR 1000 mL No Route: IV, M emoria INJ (ANES) 02-11 Total l 12:55: Volume: 1,000, Start date: 02/12/16 7:55:00 CDT, Stop date: 02/12/16 8:55:00 CDT Ceftriaxone No Notes: Ed bandar 02-10 (Same As: l 18:00: Rocephin). Kai 00 Use with 100 mL NS and infuse over 30 min MEDICATION WASTE Product Size: 2000 mg Product Wasted: ___ mg Dilaudid No Notes: Memoria 02-10 Same as: l 13:37: Dilaudid Kai 00 vancomycin No 2001 mg: Me moria 02-10 infuse l 11:00: over 2.5 [place] 00 hours metoprolol No Notes: Memor ia 15 (Same as: l 14:00: Toprol XL) Kai May split tab, but do not crush. Alprazolam No Notes: Memor ia 1 MG Oral 02-09 With food l Tablet 13:19: or milk [place] [Xanax] 00 (Same as: Xanax) vancomycin No 2001 mg: Me moria -15 infuse l 10:00: over 2.5 [place] 00 hours Anoro No Anoro Memoria 62.5mcg/25 02-09 62.5mcg/25 l mcg 01:00: mcg, 1 Kai 00 puff, Route: INHALATION , RBID, 02/09/16 20:00:00 CDT, Duration: 30 day, Stop date: 03/10/16 8:00:00 CDT ketOROLAC No 60 mg, Memori a 30 mg/mL 02-08 Route: l injectable 22:40: IVP, Drug He rmann solution 00 form: INJ, ONCE, Dosing Weight 96.023, kg, Start date: 02/09/16 17:40:00 CDT, Duration: 1 doses or times, Stop date: 02/09/16 17:40:00 CDT Vancomycin No Vancomycin M emoria Dosing per 02-08 Dosing per l RPh 19:51: RPh, ., [place] 00 Drug form: MISC, Route: MISC, PRN, PRN Other -See Comment, 02/09/16 14:51:00 CDT, Duration: 30 day, Stop date: 03/10/16 14:50:00 CDT Dilaudid 0 No Notes: Memoria 9-14 Same as: l 18:01: Dilaudid Kai 00 Sodium No 500 mL, Memoria Chloride -14 500 ml/hr, l 0.154 17:59: Infuse Kai MEQ/ML 00 Over: 1 Injectable hr, Route: Solution IV, 500, Drug form: INJ, ONCE, Priority: STAT, Dosing Weight 96.023 kg, Start date: 02/09/16 12:59:00 CDT, Duration: 1 doses or times, Stop date: 02/09/16 12:59:00 CDT pantoprazol No Notes: Ed bandar e - Tablet l 14:00: should not [place] 00 be chewed or crushed. (Same as: Protonix) chlorhexidi No Notes: Ed bandar ne 02-08 (Same As: l gluconate 14:00: Hibiclens) He rmann 40 MG/ML 00 Medicated Liquid Soap Simvastatin No Notes: Ed bandar 02-08 (Same as: l 02:00: Zocor) Kai 00 Cefuroxime No 1.5 gm, Ed bandar 02-08 Route: l 02:00: IVPB, Kai 00 ABXQ8H, Dosing Weight 96.023, kg, Start date: 02/08/16 21:00:00 CDT, Duration: 3 doses or times, Stop date: 02/09/16 13:00:00 CDT Neutra-Phos No Notes: Ed bandar 02-08 Same as: l 01:04: Phos-Nak [place] 00 Mix 1 packet with 75 mL water or juice. Each packet has 160mg of sodium, 280mg of potassium, and 250mg of phosphorus Non-Formu puneet Item potassium No Notes: Memori a phosphate + -14 (Same as: l sodium 01:04: K Kai chloride 00 Phosphate. 0.9% 500 ml ) 1 mMol INJ 500 mL phoshate has 1.47 mEq potassium Infuse over 4 hours potassium No Notes: Memori a phosphate + 9-14 (Same as: l sodium 01:04: K Kai chloride 00 Phosphate. 0.9% INJ ) 1 mMol 250 mL phoshate has 1.47 mEq potassium Infuse over 4 hours Magnesium 2016-0 No Notes: Memori a Oxide 9- (Same as: l 01:04: Mag-Ox Kai 00 400) Magnesium oxide [id number]=[id number] g elemental magnesium Dose=____m g magnesium oxide (___mg elemental magnesium) Magnesium No Notes: Memori a Sulfate 02-08 WASTE: F/P l 01:04: - Sink; E Kai - Municipal Trash Bin potassium No Notes: Memori a chloride 02-08 (Same as: l 01:04: Potassium [place] 00 Chloride) sodium No 15 mmol, 5 Memor ia phosphate + 9-14 mL, Route: l sodium 01:04: IVPB, PRN, Denita nn chloride 00 Dosing 0.9% INJ Weight 250 mL 96.023, kg, PRN Abnormal Lab Result, Start date: 02/08/16 20:04:00 CDT, Duration: 30 day, Stop date: 03/09/16 20:03:00 CDT, FOR ICU USE ONLY sodium No 45 mmol, Memoria phosphate + 9-14 15 mL, l sodium 01:04: Route: Kai chloride 00 IVPB, Drug 0.9% 500 ml form: INJ, INJ 500 mL PRN, Dosing Weight 96.023, kg, PRN Abnormal Lab Result, Start date: 02/08/16 20:04:00 CDT, Duration: 30 day, Stop date: 03/09/16 20:03:00 CDT, FOR ICU USE ONLY Calcium No Notes: Memoria Carbonate 02-08 (Same As: l 500 MG 01:04: Tums) [place] Chewable 00 Calcium Tablet Carbonate 500 mg = 200 mg elemental calcium Dose = mg calcium carbonate ( mg elemental calcium) Calcium No Notes: Memoria Gluconate 02-08 WASTE: F/P l 01:04: - Sink; E Kai - Municipal Trash Bin Albuterol No Notes: SEE Me moria 0.83 MG/ML 14 RT l Inhalant 01:04: DOCUMENTAT Her cook Solution 00 ION (Same as: Proventil) Dextrose No 25 gm, 50 Ed bandar 50% Syringe 9-14 mL, Route: l 01:04: IVP, Drug [place] 00 Form: INJ, Dosing Weight 96.023, kg, PRN, PRN Blood Glucose Results, Start date: 02/08/16 20:04:00 CDT, Duration: 30 day, Stop date: 03/09/16 20:03:00 CDT Docusate No Notes: Memoria 02-08 (Same as: l 01:04: Colace) [place] (Do Not Crush) Glucagon No 1 mg, Memoria 02-08 Route: IM, l 01:04: Drug form: [place] 00 PDR/INJ, PRN, Dosing Weight 96.023, kg, PRN Blood Glucose Results, Start date: 02/08/16 20:04:00 CDT, Duration: 30 day, Stop date: 03/09/16 20:03:00 CDT Acetaminoph No Notes: Ed bandar en 325 MG / 02-08 (Same as: l Hydrocodone 01:04: [place] Denita nn Bitartrate 00 325/5) Do 5 MG Oral not exceed Tablet 4gm/day of acetaminop hen. Acetaminoph No Notes: Do M emoria en 02-08 not exceed l 01:04: 4 gm/day. [place] (Same as: Tylenol) D5W 1/2NS + No Notes: Ed bandar KCL 20mEq/L 02-08 PREMIX IV l 1000ml 01:04: - Do Not [place] (Premix) 00 Alter 1,000 mL WASTE: F/P - Sink; E - Municipal Trash Bin Ondansetron No Notes: Ed bandar 02-07 (Same as: l 14:59: Zofran) Kai MEDICATION WASTE Product Size: 4 mg Product Wasted: ___ mg Promethazin No 6.25 mg, Me moria e 02-07 25 mL, l 14:59: Route: Kai IVPB, Drug form: SOLN, ONCE, Dosing Weight 96.023, kg, PRN Nausea & Vomiting, Start date: 02/08/16 9:59:00 CDT Flumazenil No Notes: Memor ia 02-07 (Same as: l 14:59: Romazicon) Kai Naloxone No Notes: Memoria 02-07 Same as l 14:59: Narcan Fentanyl No Notes: Memoria -13 (Same as: l 14:59: Sublimaze) Preservat vahid free. Hydromorpho No Notes: Ed bandar ne 02-07 Same as: l 14:59: Dilaudid Labetalol No 10 mg, 2 Ed bandar 9-13 mL, Route: l 14:59: IVP, Drug form: INJ, Q5Min, Dosing Weight 96.023, kg, PRN Elevated BP, Start date: 02/08/16 9:59:00 CDT, Duration: 5 doses or times, Stop date: Limited # of times ondansetron No Route: IV, Memoria (ANES) 02-07 Drug form: l 14:40: INJ, ONCE, Stop date: 02/08/16 9:40:00 CDT hydromorpho No Route: IV, Memoria ne (ANES) 02-07 Drug form: l 14:15: INJ, ONCE, Stop date: 02/08/16 9:15:00 CDT LR 1000 mL No Route: IV, M emoria INJ (ANES) 02-07 Total l 14:08: Volume: 1,000, Start date: 02/08/16 9:08:00 CDT, Stop date: 02/08/16 10:08:00 CDT heparin No Route: IV, Ed bandar (ANES) 02-07 Drug form: l 13:55: INJ, ONCE, Stop date: 02/08/16 8:55:00 CDT fentaNYL No Route: IV, Mem oria (ANES) 02-07 Drug form: l 13:40: INJ, ONCE, Stop date: 02/08/16 8:40:00 CDT propofol No Route: IV, Mem oria (ANES) 02-07 Drug form: l 13:40: INJ, ONCE, Stop date: 02/08/16 8:40:00 CDT lidocaine No Route: IV, Me moria (ANES) 02-07 Drug form: l 13:40: INJ, ONCE, Stop date: 02/08/16 8:40:00 CDT midazolam No Route: IV, moria (ANES) 02-07 Drug form: l 13:40: SOLN, [place] 00 ONCE, Stop date: 02/08/16 8:40:00 CDT rocuronium No Route: IV, Otto emoria (ANES) 02-07 Drug form: l 13:40: INJ, ONCE, Stop date: 02/08/16 8:40:00 CDT piperacilli No IV, ONCE moria n-tazobacta 02-07 l otto (ANES) 13:25: Kai 00 famotidine No Route: IV, Otto emoria (ANES) 02-07 Drug form: l 13:25: INJ, ONCE, Stop date: 02/08/16 8:25:00 CDT Rifadin IV No Notes: Memor ia 02-07 Child:10-2 l 12:00: 0mg/kg ,<= Kai 00 600mg/day. Protect from light (Same as: Rifadin) Lidocaine No 5 mg, Memoria Hydrochlori 02-07 Route: l de 10 MG/ML 12:00: INTRADERM, Kai Injectable Dosing Solution Weight 98.636, kg, ONCALL, Start date: 02/08/16 7:00:00 CDT, Duration: 30 day, Stop date: 03/09/16 6:59:00 CDT Lactated No 1,000 mL, Ed bandar Ringers 02-07 Rate: 40 l 1,000 mL 11:31: ml/hr, Kai 00 Infuse over: 25 hr, Route: IV, Dosing Weight 98.636 kg, Total Volume: 1,000, Start date: 02/08/16 6:31:00 CDT, Duration: 30 day, Stop date: 03/09/16 6:30:00 CDT Roxicodone No 15 mg, Memor ia 02-06 Route: PO, l 17:00: Drug form: [place] 00 TAB, Q4H, Start date: 02/07/16 12:00:00 CDT, Stop date: 03/08/16 8:00:00 CDT Roxicodone No Notes: Memor ia 12 (Same as: l 15:35: Roxicodone ) oxyCODONE No 15 mg, Memori a 10 mg 02-04 Route: PO, l extended 23:00: Drug form: Her cook release 00 ERTAB, Q6H, Start date: 02/05/16 18:00:00 CDT, Duration: 30 day, Stop date: 03/06/16 12:00:00 CDT Roxicodone No Notes: Memor ia 02-04 (Same as: l 20:21: Roxicodone ) Dilaudid No Notes: Memoria 02-04 Same as: l 20:04: Dilaudid sodium No 1,000 mL, Memori a chloride 02-03 Rate: 50 l 0.9% 1000 16:14: ml/hr, Raudel n ml INJ 00 Infuse 1,000 mL over: 20 hr, Route: IV, Dosing Weight 97.273 kg, Total Volume: 1,000, Start date: 02/04/16 11:14:00 CDT, Stop date: 03/05/16 11:13:00 CDT vancomycin No 2001 mg: Me moria 02-01 infuse l 20:00: over 2.5 Kai 00 hours atorvastati No Notes: Ed bandar n 02-01 (Same as: l 02:00: Lipitor) Vancomycin No 1 ea, Memori a 01-31 Route: l 20:00: MISC, Kai 00 Dosing Weight 97.273, kg, ONCALL, Start date: 02/01/16 15:00:00 CDT, Duration: 1 doses or times, Pharmacy to dose Acetaminoph No Notes: Do Otto emoria en 325 MG / 01-31 not exceed l Hydrocodone 18:10: 4gm/day of [place] Bitartrate 00 acetaminop 10 MG Oral hen. Tablet (Same as: [[place] 10/325] 325/10) Tylenol No Notes: Do Memor ia 01-31 not exceed l 18:02: 4 gm/day. (Same as: Tylenol) Vancomycin No 2001 mg: Me moria 01-31 infuse l 18:00: over 2.5 Kai 00 hours MEDICATION WASTE Product Size: 1000 mg Product Wasted: ___ mg Zosyn No Notes: Memoria 01-31 (Same as: l 18:00: Zosyn) Dosing based on Piperacill in component MEDICATION WASTE Product Size: 3375 mg Product Wasted: ___ mg Lisinopril No Notes: Memor ia 01-31 (Same as: l 14:00: Prinivil, Zestril) Amlodipine No Notes: Memor ia 01-31 (Same as: l 14:00: Norvasc) cilostazol No Notes: Memor ia 01-31 Non-Formul l 14:00: tamara Drug. (Same As: Pletal) Doxazosin No Notes: Memori a 01-31 (Same as: l 14:00: Cardura) gabapentin No Notes: Memor ia 01-31 (Same as: l 14:00: Neurontin) Kai 00 24 HR No Notes: Memoria Metoprolol 01-31 (Same as: l Tartrate 14:00: Toprol XL) Her cook 100 MG 00 May split Extended tab, but Release do not Tablet crush. [Toprol] Alprazolam No Notes: Memor ia 2 MG Oral 01-31 With food l Tablet 13:23: or milk (Same as: Xanax) Albuterol No Notes: Memori a 0.833 MG/ML 01-31 (Same as: l / 13:22: Duoneb) Ipratropium 00 Alpine 0.167 MG/ML Inhalant Solution Zofran No Notes: Memoria 01-31 (Same as: l 06:24: Zofran) MEDICATION WASTE Product Size: 4 mg Product Wasted: ___ mg Dilaudid No Notes: Memoria 01-31 Same as: l 06:23: Dilaudid Kai 00 Acetaminoph No 1 tab, PO, Memoria en 300 MG / 01-31 BID, PRN l Codeine 04:53: pain, # 28 Herm delisa Phosphate 00 tab, 0 30 MG Oral Refill(s) Tablet lisinopril Yes 10 mg = 1 Me moria 10 mg oral 01-31 tab, PO, l tablet 04:53: Daily, # [place] 00 30 tab, 0 Refill(s) metoprolol Yes 100 mg = 1 M emoria tartrate 01-31 tab, PO, l 100 mg oral 04:53: BID, # 60 H ermann tablet 00 tab, 0 Refill(s) Centrum Yes 1 tab, PO, Ed bandar Adults oral 01-31 Daily, 0 l tablet 04:53: Refill(s) Raudel n 00 doxazosin 1 Yes 1 mg = 1 Me moria mg oral 01-31 tab, PO, l tablet 04:53: Daily, # Kai 00 30 tab, 0 Refill(s) atorvastati Yes 40 mg = 1 M emoria n 40 mg 01-31 tab, PO, l oral tablet 04:53: Bedtime, # Kai 00 30 tab, 0 Refill(s) Anoro Yes 1 puff, Memoria Ellipta 01-31 INHALER, l 62.5 mcg-25 04:53: Daily, # 1 Kai mcg 00 ea, 3 inhalation Refill(s) powder Alprazolam Yes 2 mg = 1 Mem oria 2 MG Oral 01-31 tab, PO, l Tablet 04:53: BID, PRN [place] 00 Anxiety, # 20 tab, 0 Refill(s) Furosemide Yes 20 mg = 1 Me moria 20 MG Oral 01-31 tab, PO, l Tablet 04:53: Daily, # Kai 00 30 tab, 0 Refill(s) cilostazol Yes 100 mg = 1 M emoria 100 mg oral 01-31 tab, PO, l tablet 04:53: BID, # 60 Raudel n 00 tab, 0 Refill(s) Acetaminoph No 650 mg, Mem oria en 01-31 Route: PO, l 03:28: Drug form: Kai 00 TAB, ONCE, Dosing Weight 95, kg, Priority: STAT, Start date: 01/31/16 22:28:00 CDT, Stop date: 01/31/16 22:28:00 CDT Piperacilli No Notes: Ed bandar n / 01-30 (Same as: l tazobactam 22:57: Zosyn) Dosing based on Piperacill in component MEDICATION WASTE Product Size: 3375 mg Product Wasted: ___ mg Vancomycin No 2001 mg: Me moria 01-30 infuse l 22:57: over 2.5 hours MEDICATION WASTE Product Size: 1000 mg Product Wasted: ___ mg Sodium No 1,000 mL, Memori a Chloride 01-30 2,000 l 0.154 22:04: ml/hr, Kai MEQ/ML 00 Infuse Injectable Over: 30 Solution minutes, Route: IV, 1,000, Drug form: INJ, ONCE, Priority: STAT, Dosing Weight 95 kg, Start date: 01/31/16 17:04:00 CDT, Duration: 1 doses or times, Stop date: 01/31/16 17:04:00 CDT Acetaminoph No Notes: Do M emoria en 325 MG / 01-30 not exceed l Hydrocodone 21:57: 4gm/day of [place] Bitartrate 00 acetaminop 10 MG Oral hen. Tablet (Same as: [[place] 10/325] 325/10) Amlodipine Yes 10 mg, PO, M emoria 01-30 Daily, 0 l 21:17: Refill(s) gabapentin Yes 300 mg, Ed bandar 01-30 PO, BID, 0 l 21:17: Refill(s) atorvastati No Notes: Ed bandar n 02-17 (Same As: l 02:00: Lipitor) lovastatin Yes 20 mg = 1 Me moria 20 mg oral 02-16 tab, PO, l tablet 19:49: Bedtime, # Denita nn 00 30 tab, 0 Refill(s), given to patient Hydrochloro No 1 tab, Ed bandar thiazide 02-16 Route: PO, l 12.5 MG / 14:00: Drug Form: [place] Lisinopril 00 TAB, 20 MG Oral Dosing Tablet Weight 98.267, kg, Daily, Start date: 02/16/15 9:00:00, Duration: 30 day, Stop date: 03/17/15 9:00:00 Prinivil No Notes: Memoria 02-16 (Same as: l 14:00: Prinivil, [place] Zestril) metoprolol No Notes: Memor ia tartrate 02-16 (Same as: l 14:00: Lopressor) [place] 00 Microzide No Notes: Memori a 02-16 (Same as: l 14:00: Hydrodiuri [place] 00 l). Give with food. pneumococca No Notes: Ed bandar l capsular 02-16 (Same as: l polysacchar 14:00: Pneumovax H ermann ramandeep type 1 00 23) vaccine / Refrigerat pneumococca e l capsular polysacchar ramandeep type 10A vaccine / pneumococca l capsular polysacchar ramandeep type 11A vaccine / pneumococca l capsular polysacchar ramandeep type 12F vaccine / pneumococca l capsular polysacchar Alprazolam No Notes: Memor ia 0.25 MG 02-16 With food l Oral Tablet 04:39: or milk Her cook [Xanax] 00 (Same as: Xanax) Acetaminoph No Notes: Ed bandar en 325 MG / 02-16 (Same as: l Hydrocodone 04:39: [place] Denita nn Bitartrate 00 325/5) Do 5 MG Oral not exceed Tablet 4gm/day of [[place] acetaminop 5/325] hen. Tessalon No Notes: Memoria Perles 02-16 (Same As: l 01:00: Tessalon Kai 00 Perles) "Do Not Crush" Acetaminoph Yes 1 tab, PO, Memoria en 325 MG / 02-16 Q12H, PRN l Hydrocodone 00:48: Pain, # 30 [place] Bitartrate 00 tab, 0 5 MG Oral Refill(s) Tablet [[place] 5/325] Alprazolam Yes 0.25 mg = Me moria 0.25 MG 02-16 1 tab, PO, l Oral Tablet 00:48: BID, PRN He rmann [Xanax] 00 Anxiety, Stress, # 20 tab, 0 Refill(s) metoprolol Yes 25 mg, PO, M emoria tartrate 02-16 BID, 0 l 00:48: Refill(s) NS 1,000 mL No 1,000 mL, M emoria 02-15 Rate: 75 l 23:04: ml/hr, Kai 00 Infuse over: 13.3 hr, Route: IV, Dosing Weight 13.636 kg, Total Volume: 1,000, Start date: 02/15/15 18:04:00, Duration: 30 day, Stop date: 03/17/15 18:03:00 Xopenex No Notes: SEE Ed bandar 02-15 RT l 23:03: DOCUMENTAT ION (Same as:Xopenex ) Non-Formul tamara Acetaminoph No Notes: Do M emoria en 325 MG / 02-15 not exceed l Hydrocodone 23:03: 4gm/day of [place] Bitartrate acetaminop 10 MG Oral hen. Tablet (Same as: [[place] 10/325] 325/10) Albuterol No Notes: Memori a 0.833 MG/ML 02-15 (Same as: l / 20:51: Duoneb) Kai Ipratropium 00 Alpine 0.167 MG/ML Inhalant Solution [DuoNeb] Aspirin No Notes: Memoria 02-15 Take with l 20:00: food. [place] 00 tramadol Yes 100 mg = 2 Mem oria hydrochlori 02-09 tab, PO, l de 50 MG 21:05: Q6H, PRN Denita nn Oral Tablet 00 pain, X 3 [Ultram] day, # 20 tab, 0 Refill(s) Tylenol No Notes: Do Memor ia 02-09 not exceed l 20:47: 4 gm/day. [place] 00 (Same as: Tylenol) Sodium No 1,000 mL, Memori a Chloride 01-23 1,000 l 0.154 19:39: ml/hr, [place] MEQ/ML 00 Infuse Injectable Over: 1 Solution hr, Route: IV, 1,000, Drug form: INJ, ONCE, Priority: STAT, Dosing Weight 104.545 kg, Start date: 01/23/15 14:39:00, Duration: 1 doses or times, Stop date: 01/23/15 14:39:00 Saline No Notes: Memoria Flush 0.9% 01-23 preservati l 19:39: ve free. [place] 00 Vital Signs Vital Name Observation Time Observation Value Comments Source Systolic (mm Hg) 2016-04-05 18:57:00 Ed rial [place] Diastolic (mm Hg) 2016-04-05 18:57:00 Mem orial Kai Respitory Rate 2016-04-05 18:57:00 Memori al [place] Heart Rate 2016-04-05 18:57:00 [facility] [place] Systolic (mm Hg) 2016-04-05 18:27:00 Ed rial [place] Diastolic (mm Hg) 2016-04-05 18:27:00 Mem orial Kai Respitory Rate 2016-04-05 18:27:00 Memori al [place] Heart Rate 2016-04-05 18:27:00 [facility] [place] Respitory Rate 2016-04-05 17:57:00 Memori al [place] Heart Rate 2016-04-05 17:57:00 [facility] [place] Systolic (mm Hg) 2016-04-05 17:57:00 Ed rial [place] Diastolic (mm Hg) 2016-04-05 17:57:00 Mem orial [place] Temperature Oral (F) 2016-04-05 17:35:00 97.7 F [facility] [place] Temperature Oral (F) 2016-04-05 17:27:00 97.7 F [facility] [place] Temperature Oral (F) 2016-04-05 16:22:00 98.2 F [facility] [place] Weight 2016-04-05 13:20:00 [facility] [place] BMI Calculated 2016-04-05 13:20:00 Memori al [place] Height 2016-04-05 13:20:00 185 cm [facility] [place] Respitory Rate 2016-03-14 11:00:00 Memori al [place] Systolic (mm Hg) 2016-03-14 11:00:00 Ed rial [place] Diastolic (mm Hg) 2016-03-14 11:00:00 Mem orial [place] Systolic (mm Hg) 2016-03-14 10:00:00 Ed rial [place] Diastolic (mm Hg) 2016-03-14 10:00:00 Mem orial [place] Respitory Rate 2016-03-14 10:00:00 Memori al [place] Temperature Oral (F) 2016-03-14 09:00:00 98.8 F [facility] [place] Respitory Rate 2016-03-14 09:00:00 Memori al [place] Systolic (mm Hg) 2016-03-14 09:00:00 Ed rial [place] Diastolic (mm Hg) 2016-03-14 09:00:00 Mem orial [place] Temperature Oral (F) 2016-03-14 05:00:00 98.7 F [facility] [place] Heart Rate 2016-03-14 03:48:00 [facility] [place] BMI Calculated 2016-03-13 23:42:00 Memori al [place] Weight 2016-03-13 23:42:00 [facility] [place] Temperature Oral (F) 2016-03-13 23:42:00 98.6 F [facility] [place] Height 2016-03-13 23:42:00 185.42 cm [facility] [place] Heart Rate 2016-03-13 23:42:00 [facility] [place] Heart Rate 2016-02-18 19:19:00 [facility] [place] Temperature Oral (F) 2016-02-18 19:19:00 98.8 F [facility] [place] Respitory Rate 2016-02-18 19:19:00 Memori al [place] Systolic (mm Hg) 2016-02-18 19:19:00 Ed rial Kai Diastolic (mm Hg) 2016-02-18 19:19:00 Mem orial [place] Temperature Oral (F) 2016-02-18 15:28:00 98.3 F [facility] [place] Heart Rate 2016-02-18 15:28:00 [facility] [place] Systolic (mm Hg) 2016-02-18 15:28:00 Ed rial Kai Diastolic (mm Hg) 2016-02-18 15:28:00 Mem orial [place] Respitory Rate 2016-02-18 15:28:00 Memori al [place] Temperature Oral (F) 2016-02-18 12:40:00 98.2 F [facility] [place] Heart Rate 2016-02-18 12:40:00 [facility] [place] Systolic (mm Hg) 2016-02-18 12:40:00 Ed rial [place] Diastolic (mm Hg) 2016-02-18 12:40:00 Mem orial [place] Respitory Rate 2016-02-18 12:40:00 [facility] al [place] Weight 2016-02-08 11:10:00 [facility] [place] BMI Calculated 2016-02-08 10:24:00 Mem[facility] al [place] Weight 2016-02-08 10:24:00 [facility] [place] Height 2016-02-08 10:24:00 185.42 cm [facility] [place] Weight 2016-02-01 04:41:00 [facility] [place] BMI Calculated 2016-02-01 04:41:00 Memori al [place] Height 2016-02-01 04:41:00 185.42 cm [facility] [place] Height 2016-01-31 19:21:00 185.42 cm [facility] [place] BMI Calculated 2016-01-31 19:21:00 Memori al [place] Respitory Rate 2015-02-16 18:18:00 Memori al [place] Temperature Oral (F) 2015-02-16 17:50:00 98.0 F [facility] [place] Respitory Rate 2015-02-16 17:50:00 Memori al [place] Heart Rate 2015-02-16 17:50:00 [facility] [place] Systolic (mm Hg) 2015-02-16 17:50:00 Ed rial [place] Diastolic (mm Hg) 2015-02-16 17:50:00 Mem orial [place] Temperature Oral (F) 2015-02-16 12:35:00 98.2 F [facility] [place] Heart Rate 2015-02-16 12:35:00 [facility] [place] Systolic (mm Hg) 2015-02-16 12:35:00 Ed rial [place] Diastolic (mm Hg) 2015-02-16 12:35:00 Mem orial [place] Respitory Rate 2015-02-16 12:35:00 Memori al [place] Temperature Oral (F) 2015-02-16 09:00:00 97.5 F [facility] [place] Systolic (mm Hg) 2015-02-16 09:00:00 Ed rial [place] Diastolic (mm Hg) 2015-02-16 09:00:00 Mem orial [place] Heart Rate 2015-02-16 09:00:00 [facility] [place] Height 2015-02-16 00:50:00 185.42 cm [facility] [place] BMI Calculated 2015-02-16 00:50:00 [facility] al [place] Weight 2015-02-16 00:50:00 [facility] [place] Weight 2015-02-15 17:48:00 [facility] [place] BMI Calculated 2015-02-15 17:48:00 Memori al [place] Height 2015-02-15 17:48:00 185.42 cm [facility] [place] Temperature Oral (F) 2015-02-09 21:12:00 98.2 F [facility] [place] Heart Rate 2015-02-09 21:12:00 [facility] [place] Respitory Rate 2015-02-09 21:12:00 Memori al [place] Systolic (mm Hg) 2015-02-09 21:12:00 Ed rial [place] Diastolic (mm Hg) 2015-02-09 21:12:00 Mem orial [place] BMI Calculated 2015-02-09 20:27:00 [facility] al [place] Weight 2015-02-09 20:27:00 [facility] [place] Height 2015-02-09 20:27:00 185.42 cm [facility] [place] Systolic (mm Hg) 2015-02-09 20:27:00 Ed rial [place] Diastolic (mm Hg) 2015-02-09 20:27:00 Mem orial [place] Heart Rate 2015-02-09 20:27:00 [facility] [place] Respitory Rate 2015-02-09 20:27:00 Memori al [place] Systolic (mm Hg) 2015-01-23 23:00:00 Ed rial Kai Diastolic (mm Hg) 2015-01-23 23:00:00 Mem orial [place] Systolic (mm Hg) 2015-01-23 22:00:00 Ed rial [place] Diastolic (mm Hg) 2015-01-23 22:00:00 Mem orial [place] Systolic (mm Hg) 2015-01-23 21:00:00 Ed rial [place] Diastolic (mm Hg) 2015-01-23 21:00:00 Mem orial [place] Respitory Rate 2015-01-23 19:15:00 Memori al [place] Weight 2015-01-23 18:26:00 Chacorta Quinn Height 2015-01-23 18:26:00 185.42 cm Chacorta Quinn BMI Calculated 2015-01-23 18:26:00 Memwillian Jamisonann Respitory Rate 2015-01-23 18:26:00 Memori miya [place] Heart Rate 2015-01-23 18:26:00 Chacorta Quinn Temperature Oral (F) 2015-01-23 18:26:00 98.5 F Chacorta Abarcaann Procedures Procedure Date / Time Performed Performing Clinician [facility] e Amputation of [facility] toe<sup>1</sup> Blood transfusion [facility] Denita nn Encounters Start End Encounter Admission Attending Care Care Encounter Source Date/Time Date/Time Type Type Clinicians Facility Department ID 2016-04-05 2016-04-05 Outpatient SAVI Pierce [facility] [id number] 08:00:00 23:59:00 Abbmarek 08 Jeff 2016-03-13 2016-03-14 Outpatient Emily [facility] [id number] 18:41:00 10:51:00 Blanche Ruiz 07 2016-01-31 2016-02-18 Outpatient SAVI Pierce [facility] [id number] 13:47:00 15:15:00 Abb 06 Jeff 2015-02-15 2015-02-16 Outpatient Brian [facility] [id number] 12:38:00 16:20:00 Juan Mckeon 2015-02-09 2015-02-09 Outpatient Az Warner [facility] [id number] 15:20:00 16:13:00 Sundar 04 2015-01-23 2015-01-23 Outpatient Lisandra [facility] [id number] 13:23:00 18:13:00 Tim Cope 03 2013-10-31 2013-11-29 Outpatient Rosibel [facility] [id number] 08:00:00 23:59:00 Nabeel Mirza 00 Results Test Description Test Time Test Comments Results Result Comments Source BLOOD CULTURE 2018-10-18 02:00:00 Test Item Value Reference Range Interpretation Comme nts CULTURE (BEAKER) (test code = 1095) No growth in 5 days BLOOD [id number] 20:01:00 Test Item Value Reference Range Interpretation Comments CULTURE (BEAKER) (test No growth in 5 days code = 1095) EEG AWAKE AND [id number] 14:49:00Reason for exam:->seizuresDate(s) of EE10/14/18DATE OF REPORT: 10/14/18ACC: [id number] Number: [id number] time: 13:36Stop time: 13:57ICD-10: R56.9 Unspecified ConvulsionsCPT Code: 69315 EEG: awake and drowsy <40 min HISTORY: [...] Zabala MDNeurophysiology Fellow Anjali Floyd MDNeurophysiology/Epilepsy Attending [facility] [id number] 07:41:00 Test Item Value Reference Range Interpretation Comments SODIUM (BEAKER) 133 meq/L 136-145 L (test code = 381) POTASSIUM (BEAKER) 4.1 meq/L 3.5-5.1 Specimen slightly (test code = 379) hemolyzed CHLORIDE (BEAKER) 103 meq/L 98-107 (test code = 382) CO2 (BEAKER) (test 19 meq/L 22-29 L code = 355) BLOOD UREA NITROGEN 8 mg/dL 7-21 (BEAKER) (test code = 354) CREATININE (BEAKER) 0.83 mg/dL 0.57-1.25 Specimen slightly (test code = 358) hemolyzed GLUCOSE RANDOM 84 mg/dL 70-105 (BEAKER) (test code = 652) CALCIUM (BEAKER) 8.5 mg/dL 8.4-10.2 (test code = 697) EGFR (BEAKER) (test 97 mL/min/1.73 ESTIMA MEET GFR IS code = 1092) sq m NOT ACCURATE CREATININE CLEARANCE IN PREDICTING GLOMERULAR FILTRATION RATE . ESTIMATED GFR I S NOT APPLICABLE FOR DIALYSIS PATIEN TS. CBC W/PLT COUNT & AUTO [id number] 05:30:00 Test Item Value Reference Range Interpretation Comments WHITE BLOOD CELL COUNT (BEAKER) 9.7 K/ L 3.5-10.5 (test code = 775) RED BLOOD CELL COUNT (BEAKER) 4.44 M/ L 4.63-6.08 L (test code = 761) HEMOGLOBIN (BEAKER) (test code = 14.9 GM/DL 13.7-17.5 410) HEMATOCRIT (BEAKER) (test code = 44.1 % 40.1-51.0 411) MEAN CORPUSCULAR VOLUME (BEAKER) 99.3 fL 79.0-92.2 H (test code = 753) MEAN CORPUSCULAR HEMOGLOBIN 33.6 pg 25.7-32.2 H (BEAKER) (test code = 751) MEAN CORPUSCULAR HEMOGLOBIN CONC 33.8 GM/DL 32.3-36.5 (BEAKER) (test code = 752) RED CELL DISTRIBUTION WIDTH 15.2 % 11.6-14.4 H (BEAKER) (test code = 412) PLATELET COUNT (BEAKER) (test 177 K/CU MM 150-450 code = 756) MEAN PLATELET VOLUME (BEAKER) 9.7 fL 9.4-12.4 (test code = 754) NUCLEATED RED BLOOD CELLS 0 /100 WBC 0-0 (BEAKER) (test code = 413) NEUTROPHILS RELATIVE PERCENT 73 % (BEAKER) (test code = 429) LYMPHOCYTES RELATIVE PERCENT 16 % (BEAKER) (test code = 430) MONOCYTES RELATIVE PERCENT 11 % (BEAKER) (test code = 431) EOSINOPHILS RELATIVE PERCENT 0 % (BEAKER) (test code = 432) BASOPHILS RELATIVE PERCENT 0 % (BEAKER) (test code = 437) NEUTROPHILS ABSOLUTE COUNT 7.05 K/ L 1.78-5.38 H (BEAKER) (test code = 670) LYMPHOCYTES ABSOLUTE COUNT 1.52 K/ L 1.32-3.57 (BEAKER) (test code = 414) MONOCYTES ABSOLUTE COUNT (BEAKER) 1.04 K/ L 0.30-0.82 H (test code = 415) EOSINOPHILS ABSOLUTE COUNT 0.01 K/ L 0.04-0.54 L (BEAKER) (test code = 416) BASOPHILS ABSOLUTE COUNT (BEAKER) 0.04 K/ L 0.01-0.08 (test code = 417) IMMATURE GRANULOCYTES-RELATIVE 0 % 0-1 PERCENT (BEAKER) (test code = 2801) VITAMIN B12 AND [id number] 19:46:00 Test Item Value Reference Range Interpretation Comments VITAMIN B12 (BEAKER) (test code = 683 pg/mL 213-816 774) FOLATE (BEAKER) (test code = 362) > ng/mL >=7.0 [id number] 17:59:00 Test Item Value Reference Range Interpretation Comments PHOSPHORUS (BEAKER) (test code = 4.0 mg/dL 2.3-4.7 604) [id number] 17:59:00 Test Item Value Reference Range Interpretation Comments MAGNESIUM (BEAKER) (test code = 2.5 mg/dL 1.6-2.6 627) CT, BRAIN, WITHOUT [id number] 16:58:00FINAL REPORT CT head without contrast. Reason [...] MDReport Verified Date/Time: 10/12/2018 16:58:56 Reading Location: [facility] C013V Neuro Reading Room ALYSIS W/ [id number] 16:25:00 Test Item Value Reference Range Interpretation Comments COLOR (BEAKER) (test code = Light Yellow 470) CLARITY (BEAKER) (test code = Clear 469) SPECIFIC GRAVITY UA (BEAKER) 1.007 1.001-1.035 (test code = 468) PH UA (BEAKER) (test code = 5.5 5.0-8.0 467) PROTEIN UA (BEAKER) (test code 10 mg/dL Negative A = 464) GLUCOSE UA (BEAKER) (test code Negative Negative = 365) KETONES UA (BEAKER) (test code 20 mg/dL Negative A = 371) BILIRUBIN UA (BEAKER) (test Negative Negative code = 462) BLOOD UA (BEAKER) (test code = Trace Negative A 461) NITRITE UA (BEAKER) (test code Negative Negative = 465) LEUKOCYTE ESTERASE UA (BEAKER) Negative Negative (test code = 466) UROBILINOGEN UA (BEAKER) (test 0.2 mg/dL 0.2-1.0 code = 463) RBC UA (BEAKER) (test code = < /HPF 519) WBC UA (BEAKER) (test code = 1 /HPF 520) SQUAMOUS EPITHELIAL (BEAKER) < /HPF (test code = 516) SOURCE(BEAKER) (test code = Urine, Voided 2795) BLOOD [id number] 10:00:00 Test Item Value Reference Range Interpretation Comments CULTURE (BEAKER) (test No growth in 5 days code = 1095) STOOL CULTURE + SHIGA [id number] 09:59:00 Test Item Value Reference Range Interpretation Comments CULTURE (BEAKER) No Salmonella, Shigella (test code = 1095) or Campylobacter isolated STOOL PATH [id number] 09:01:00 Test Item Value Reference Range Interpretation Comments PATHOGEN EXAM CHARGED (BEAKER) (test Done code = 8634) BASIC METABOLIC [id number] 06:59:00 Test Item Value Reference Range Interpretation Comments SODIUM (BEAKER) 137 meq/L 136-145 (test code = 381) POTASSIUM (BEAKER) 3.6 meq/L 3.5-5.1 (test code = 379) CHLORIDE (BEAKER) 110 meq/L 98-107 H (test code = 382) CO2 (BEAKER) (test 16 meq/L 22-29 L code = 355) BLOOD UREA NITROGEN 18 mg/dL 7-21 (BEAKER) (test code = 354) CREATININE (BEAKER) 2.02 mg/dL 0.57-1.25 H (test code = 358) GLUCOSE RANDOM 91 mg/dL 70-105 (BEAKER) (test code = 652) CALCIUM (BEAKER) 9.3 mg/dL 8.4-10.2 (test code = 697) EGFR (BEAKER) (test 35 mL/min/1.73 ESTIMA MEET GFR IS code = 1092) sq m NOT ACCURATE CREATININE CLEARANCE IN PREDICTING GLOMERULAR FILTRATION RATE . ESTIMATED GFR I S NOT APPLICABLE FOR DIALYSIS PATIEN TS. SHIGA TOXIN [id number] 15:48:00 Test Item Value Reference Range Interpretation Comments SHIGA TOXIN 1 (BEAKER) (test Not detected Not detected code = 2177) SHIGA TOXIN 2 (BEAKER) (test Not detected Not detected code = 2179) CLOSTRIDIUM DIFFICILE TOXIN [id number] 15:13:00 Test Item Value Reference Range Interpretation Comments CLOSTRIDIUM DIFFICILE TOXIN, PCR Not Detected Not Detected (BEAKER) (test code = 1525) This qualitative real-time polymerase chain reaction assay detects the tcdB gene, encoded on the C.difficile pathogenicity locus (PaLoc). [...] a positive result is not recommended.BLOOD GAS, [id number] 11:03:00 Test Item Value Reference Range Interpretation Comments PH ARTERIAL (BEAKER) (test code = 7.38 7.35-7.45 383) PCO2 ARTERIAL (BEAKER) (test code 28 mmHg 35-45 L = 384) PO2 ARTERIAL (BEAKER) (test code 95 mmHg 80-90 H = 385) O2 SATURATION ARTERIAL (BEAKER) 97.4 % 96.0-97.0 H (test code = 386) HCO3 ARTERIAL (BEAKER) (test code 16 mmol/L 21-29 L = 388) BASE EXCESS ARTERIAL (BEAKER) -7.2 mmol/L -2.0-3.0 L (test code = 387) PATIENT TEMPERATURE (BEAKER) 36.5 C (test code = 1818) FIO2 (BEAKER) (test code = 1819) 21.0 % BASIC METABOLIC [id number] 05:14:00 Test Item Value Reference Range Interpretation Comments SODIUM (BEAKER) 136 meq/L 136-145 (test code = 381) POTASSIUM (BEAKER) 3.9 meq/L 3.5-5.1 (test code = 379) CHLORIDE (BEAKER) 111 meq/L 98-107 H (test code = 382) CO2 (BEAKER) (test 13 meq/L 22-29 L code = 355) BLOOD UREA NITROGEN 20 mg/dL 7-21 (BEAKER) (test code = 354) CREATININE (BEAKER) 2.70 mg/dL 0.57-1.25 H (test code = 358) GLUCOSE RANDOM 77 mg/dL 70-105 (BEAKER) (test code = 652) CALCIUM (BEAKER) 9.3 mg/dL 8.4-10.2 (test code = 697) EGFR (BEAKER) (test 25 mL/min/1.73 ESTIMA MEET GFR IS code = 1092) sq m NOT ACCURATE CREATININE CLEARANCE IN PREDICTING GLOMERULAR FILTRATION RATE . ESTIMATED GFR I S NOT APPLICABLE FOR DIALYSIS PATIEN TS. PTH, [id number] 05:03:00 Test Item Value Reference Range Interpretation Comments PARATHYROID HORMONE INTACT 41.8 pg/mL 8.5-72.5 (BEAKER) (test code = 577) BASIC METABOLIC [id number] 07:10:00 Test Item Value Reference Range Interpretation Comments SODIUM (BEAKER) 136 meq/L 136-145 (test code = 381) POTASSIUM (BEAKER) 3.4 meq/L 3.5-5.1 L (test code = 379) CHLORIDE (BEAKER) 109 meq/L 98-107 H (test code = 382) CO2 (BEAKER) (test 15 meq/L 22-29 L code = 355) BLOOD UREA NITROGEN 23 mg/dL 7-21 H (BEAKER) (test code = 354) CREATININE (BEAKER) 3.91 mg/dL 0.57-1.25 H (test code = 358) GLUCOSE RANDOM 79 mg/dL 70-105 (BEAKER) (test code = 652) CALCIUM (BEAKER) 8.9 mg/dL 8.4-10.2 (test code = 697) EGFR (BEAKER) (test 16 mL/min/1.73 ESTIMA MEET GFR IS code = 1092) sq m NOT ACCURATE CREATININE CLEARANCE IN PREDICTING GLOMERULAR FILTRATION RATE . ESTIMATED GFR I S NOT APPLICABLE FOR DIALYSIS PATIEN TS. SODIUM, RANDOM [id number] 06:58:00 Test Item Value Reference Range Interpretation Comments SODIUM URINE (BEAKER) (test code = 65 meq/L 243) Reference Range: No NormalsPROTHROMBIN [id number] 06:47:00 Test Item Value Reference Range Interpretation Comments PROTIME (BEAKER) (test code = 14.5 seconds 11.7-14.7 759) INR (BEAKER) (test code = 370) 1.1 <=5.9 RECOMMENDED COUMADIN/WARFARIN INR THERAPY RANGESSTANDARD DOSE: 2.0 - 3.0 Includes: PROPHYLAXIS forvenous thrombosis, systemic embolization; TREATMENT for venous thrombosis and/or pulmonary embolus.HIGH RISK: Target INR is 2.5-3.5 for patients with mechanical heart valves.RAPID DRUG SCREEN, [id number] 15:43:00 Test Item Value Reference Range Interpretation Comments BARBITURATE URINE (BEAKER) (test Negative Negative code = 725) BENZODIAZEPINE SCREEN URINE (BEAKER) Positive Negative A (test code = 726) COCAINE (METAB.) SCREEN (BEAKER) Negative Negative (test code = 1164) METHADONE SCREEN (BEAKER) (test code Negative Negative = 1436) OPIATE SCREEN URINE (BEAKER) (test Negative Negative code = 734) CANNABINOID SCREEN URINE (BEAKER) Negative Negative (test code = 727) AMPH/METHAMPH SCREEN (BEAKER) (test Negative Negative code = 1438) PHENCYCLIDINE SCREEN URINE (BEAKER) Negative Negative (test code = 608) OXYCODONE SCREEN URINE (BEAKER) Negative Negative (test code = 2761) DRUG CUTOFF CONC.Cocaine 300 ng/mL Cannabinoid 50 ng/mL Benzodiazepine 200 ng/mLBarbiturate 200 ng/mLPhencyclidine 25 ng/mLOpiate 300 ng/mLMethadone 300 ng/mLAmphetamine/ 1000 ng/mL MethamphetamineOxycodone 300 ng/mLThis assay provides an unconfirmed qualitative test result for the clinical management of patients in emergency situations. Chain of custody not maintained. Some snum-muv-fvbporv medications, as well as adulterants, may cause inaccurate results. Clinical correlation should be applied. A more comprehensive drug screen or confirmation of a detected drug may be performed upon request.URINE [id number] 14:33:00 Test Item Value Reference Range Interpretation Comments CULTURE (BEAKER) (test code = 1095) No growth BASIC METABOLIC [id number] 08:09:00 Test Item Value Reference Range Interpretation Comments SODIUM (BEAKER) 136 meq/L 136-145 (test code = 381) POTASSIUM (BEAKER) 3.5 meq/L 3.5-5.1 Specimen slightly (test code = 379) hemolyzed CHLORIDE (BEAKER) 107 meq/L 98-107 (test code = 382) CO2 (BEAKER) (test 15 meq/L 22-29 L code = 355) BLOOD UREA NITROGEN 25 mg/dL 7-21 H (BEAKER) (test code = 354) CREATININE (BEAKER) 4.75 mg/dL 0.57-1.25 H Specimen slightly (test code = 358) hemolyzed GLUCOSE RANDOM 74 mg/dL 70-105 (BEAKER) (test code = 652) CALCIUM (BEAKER) 8.5 mg/dL 8.4-10.2 (test code = 697) EGFR (BEAKER) (test 13 mL/min/1.73 ESTIMA MEET GFR IS code = 1092) sq m NOT ACCURATE CREATININE CLEARANCE IN PREDICTING GLOMERULAR FILTRATION RATE . ESTIMATED GFR I S NOT APPLICABLE FOR DIALYSIS PATIEN TS. CBC W/PLT COUNT & AUTO [id number] 06:38:00 Test Item Value Reference Range Interpretation Comments WHITE BLOOD CELL COUNT (BEAKER) 9.9 K/ L 3.5-10.5 (test code = 775) RED BLOOD CELL COUNT (BEAKER) 4.01 M/ L 4.63-6.08 L (test code = 761) HEMOGLOBIN (BEAKER) (test code = 13.2 GM/DL 13.7-17.5 L 410) HEMATOCRIT (BEAKER) (test code = 38.1 % 40.1-51.0 L 411) MEAN CORPUSCULAR VOLUME (BEAKER) 95.0 fL 79.0-92.2 H (test code = 753) MEAN CORPUSCULAR HEMOGLOBIN 32.9 pg 25.7-32.2 H (BEAKER) (test code = 751) MEAN CORPUSCULAR HEMOGLOBIN CONC 34.6 GM/DL 32.3-36.5 (BEAKER) (test code = 752) RED CELL DISTRIBUTION WIDTH 13.1 % 11.6-14.4 (BEAKER) (test code = 412) PLATELET COUNT (BEAKER) (test 121 K/CU MM 150-450 L code = 756) MEAN PLATELET VOLUME (BEAKER) 10.1 fL 9.4-12.4 (test code = 754) NUCLEATED RED BLOOD CELLS 0 /100 WBC 0-0 (BEAKER) (test code = 413) NEUTROPHILS RELATIVE PERCENT 73 % (BEAKER) (test code = 429) LYMPHOCYTES RELATIVE PERCENT 17 % (BEAKER) (test code = 430) MONOCYTES RELATIVE PERCENT 8 % (BEAKER) (test code = 431) EOSINOPHILS RELATIVE PERCENT 2 % (BEAKER) (test code = 432) BASOPHILS RELATIVE PERCENT 0 % (BEAKER) (test code = 437) NEUTROPHILS ABSOLUTE COUNT 7.25 K/ L 1.78-5.38 H (BEAKER) (test code = 670) LYMPHOCYTES ABSOLUTE COUNT 1.66 K/ L 1.32-3.57 (BEAKER) (test code = 414) MONOCYTES ABSOLUTE COUNT (BEAKER) 0.76 K/ L 0.30-0.82 (test code = 415) EOSINOPHILS ABSOLUTE COUNT 0.19 K/ L 0.04-0.54 (BEAKER) (test code = 416) BASOPHILS ABSOLUTE COUNT (BEAKER) 0.03 K/ L 0.01-0.08 (test code = 417) IMMATURE GRANULOCYTES-RELATIVE 0 % 0-1 PERCENT (BEAKER) (test code = 2801) U/S, RENAL, [id number] 22:34:00Reason for exam:->acute kidney injury FINAL REPORT Renal ultrasound. Clinical History: acute [...] hydronephrosis. Signed: Zion Jack MDReport Verified Date/Time: 04/17/2017 22:34:25 Reading Location:[facility] [id number] Consult Reading Room MR, BRAIN, WITHOUT [id number] 19:18:00Reason for exam:->Stroke evaluationFINAL REPORT MRI Brain [...] for possible seizure foci. Signed: Wicho Nelson MDReport Charlene ified Date/Time: 04/17/2017 19:18:34 Reading Location: [facility] Radiology Reading Room EEG MONITORING WITH VIDEO RECORDING EACH 24 [id number] 18:01:00DATE OF TEST: 04/17/2017 DATE OF REPORT 04/17/2017 ACC: [id number] EE Start time: 16:42 Stop time: 18:44 ICD-10: R56.9 CPT Code: 64042 HISTORY: 51 y/o woman with history of [...] its interpretation. Shahnaz Davis MD Neurophysiology Attending ALYSIS W/ [id number] 11:57:00 Test Item Value Reference Range Interpretation Comments COLOR (BEAKER) (test code = 470) Light Yellow CLARITY (BEAKER) (test code = Clear 469) SPECIFIC GRAVITY UA (BEAKER) 1.006 1.001-1.035 (test code = 468) PH UA (BEAKER) (test code = 467) 6.0 5.0-8.0 PROTEIN UA (BEAKER) (test code = 30 mg/dL Negative A 464) GLUCOSE UA (BEAKER) (test code = Negative Negative 365) KETONES UA (BEAKER) (test code = Negative Negative 371) BILIRUBIN UA (BEAKER) (test code Negative Negative = 462) BLOOD UA (BEAKER) (test code = Small Negative A 461) NITRITE UA (BEAKER) (test code = Negative Negative 465) LEUKOCYTE ESTERASE UA (BEAKER) Large Negative A (test code = 466) UROBILINOGEN UA (BEAKER) (test 0.2 mg/dL 0.2-1.0 code = 463) RBC UA (BEAKER) (test code = 7 /HPF 519) WBC UA (BEAKER) (test code = 21 /HPF 520) BACTERIA (BEAKER) (test code = Occasional 517) SQUAMOUS EPITHELIAL (BEAKER) < /HPF (test code = 516) URIC ACID CRYSTALS (BEAKER) Rare (test code = 1583) SOURCE(BEAKER) (test code = Urine, Cooper 5579) EOSINOPHIL SMEAR, [id number] 11:56:00 Test Item Value Reference Range Interpretation Comments EOSINOPHIL SMEAR, URINE (BEAKER) No EOS seen No EOS seen (test code = 0737) CREATININE, RANDOM [id number] 11:24:00 Test Item Value Reference Range Interpretation Comments CREATININE URINE (BEAKER) (test 69.7 mg/dL code = 375) Reference Range: No NormalsSODIUM, RANDOM [id number] 11:24:00 Test Item Value Reference Range Interpretation Comments SODIUM URINE (BEAKER) (test code = 58 meq/L 243) Reference Range: No NormalsUREA NITROGEN, RANDOM [id number] 11:24:00 Test Item Value Reference Range Interpretation Comments UREA NITROGEN URINE (BEAKER) (test 172 mg/dL code = 538) Reference Range: No NormalsCREATINE KINASE (CK)2017-04-17 11:06:00 Test Item Value Reference Range Interpretation Comments CREATINE KINASE TOTAL (BEAKER) (test 136 U/L 29-200 code = 380) BASIC METABOLIC [id number] 04:53:00 Test Item Value Reference Range Interpretation Comments SODIUM (BEAKER) 137 meq/L 136-145 (test code = 381) POTASSIUM (BEAKER) 3.4 meq/L 3.5-5.1 L (test code = 379) CHLORIDE (BEAKER) 105 meq/L 98-107 (test code = 382) CO2 (BEAKER) (test 21 meq/L 22-29 L code = 355) BLOOD UREA NITROGEN 19 mg/dL 7-21 (BEAKER) (test code = 354) CREATININE (BEAKER) 3.75 mg/dL 0.57-1.25 H (test code = 358) GLUCOSE RANDOM 100 mg/dL 70-105 (BEAKER) (test code = 652) CALCIUM (BEAKER) 8.6 mg/dL 8.4-10.2 (test code = 697) EGFR (BEAKER) (test 17 mL/min/1.73 ESTIMA MEET GFR IS code = 1092) sq m NOT ACCURATE CREATININE CLEARANCE IN PREDICTING GLOMERULAR FILTRATION RATE . ESTIMATED GFR I S NOT APPLICABLE FOR DIALYSIS PATIEN TS. CBC W/PLT COUNT & AUTO [id number] 04:19:00 Test Item Value Reference Range Interpretation Comments WHITE BLOOD CELL COUNT (BEAKER) 12.0 K/ L 3.5-10.5 H (test code = 775) RED BLOOD CELL COUNT (BEAKER) 4.19 M/ L 4.63-6.08 L (test code = 761) HEMOGLOBIN (BEAKER) (test code = 13.8 GM/DL 13.7-17.5 410) HEMATOCRIT (BEAKER) (test code = 40.4 % 40.1-51.0 411) MEAN CORPUSCULAR VOLUME (BEAKER) 96.4 fL 79.0-92.2 H (test code = 753) MEAN CORPUSCULAR HEMOGLOBIN 32.9 pg 25.7-32.2 H (BEAKER) (test code = 751) MEAN CORPUSCULAR HEMOGLOBIN CONC 34.2 GM/DL 32.3-36.5 (BEAKER) (test code = 752) RED CELL DISTRIBUTION WIDTH 13.4 % 11.6-14.4 (BEAKER) (test code = 412) PLATELET COUNT (BEAKER) (test 118 K/CU MM 150-450 L code = 756) MEAN PLATELET VOLUME (BEAKER) 9.5 fL 9.4-12.4 (test code = 754) NUCLEATED RED BLOOD CELLS 0 /100 WBC 0-0 (BEAKER) (test code = 413) NEUTROPHILS RELATIVE PERCENT 77 % (BEAKER) (test code = 429) LYMPHOCYTES RELATIVE PERCENT 15 % (BEAKER) (test code = 430) MONOCYTES RELATIVE PERCENT 7 % (BEAKER) (test code = 431) EOSINOPHILS RELATIVE PERCENT 1 % (BEAKER) (test code = 432) BASOPHILS RELATIVE PERCENT 0 % (BEAKER) (test code = 437) NEUTROPHILS ABSOLUTE COUNT 9.20 K/ L 1.78-5.38 H (BEAKER) (test code = 670) LYMPHOCYTES ABSOLUTE COUNT 1.78 K/ L 1.32-3.57 (BEAKER) (test code = 414) MONOCYTES ABSOLUTE COUNT (BEAKER) 0.82 K/ L 0.30-0.82 (test code = 415) EOSINOPHILS ABSOLUTE COUNT 0.12 K/ L 0.04-0.54 (BEAKER) (test code = 416) BASOPHILS ABSOLUTE COUNT (BEAKER) 0.04 K/ L 0.01-0.08 (test code = 417) IMMATURE GRANULOCYTES-RELATIVE 0 % 0-1 PERCENT (BEAKER) (test code = 2801) EEG MONITORING WITH VIDEO RECORDING EACH 24 [id number] 17:57:00DATE OF TEST: 04/16/2017DATE OF REPORT 04/16/2017 ACC: [id number]: 17-1988Start time: 08:42 Stop time: 16:42ICD-10: R56.9CPT Code: 12485NCVKLCL: 51 y/o woman with history of epilepsy [...] end of the recording, frequencies up to 9-10Hz are present in the occipital region bilaterally, [...] report.Phoebe Hassan MDEpilepsy Attending EEG AWAKE/ASLEEP AND [id number] 13:27:00Reason for exam:->status epilepticusDATE OF TEST: 04/16/2017DATE OF REPORT 04/16/2017 ACC: [id number] EEStart time: 08:21 Stop time: 08:42ICD-10: R56.9CPT Code: 52494MAZEGMO: 51 y/o woman with history of epilepsy presents with status epilepticus, now intubated and sedatedMEDICATIONS: Ativan, versed, rocephin, propofol, ketamine,fentanyl, diprivanTECHNICAL SUMMARY: This is a digital video EEG recorded with 32 input channels reviewed with bipolar and referential montages using the modified combinatorial system nomenclature.DESCR IPTION OF RECORD: Neither a posterior dominant rhythm [...] photic driving was seen; photoparoxysmal responses were absent.IMPRESSION: Abnormal EEG due to: 1. Diffuse delta and theta background slowing, unreactive 2. Excessive beta activity CLINICAL CORRELATION: The diffuse slowing in this record isconsistent with a severe degree of encephalopathy. The excessive beta activity is likely related to m edications, thus the degree of encephalopathy in the record may be in part due to pharmacological sedation. An EEG without epileptiform discharges does not exclude the possibility of epilepsy. If the clinical suspicion of epilepsy remains, consider additional EEG recordings.Aixa Reis M.D.Neur ophysiology FellowAttending note:I personally reviewed this EEG record in its entirety and I agree with the details of this report.Phoebe Hassan MDEpilepsy Attending HEPATIC FUNCTION [id number] 12:59:00 Test Item Value Reference Range Interpretation Comments TOTAL PROTEIN (BEAKER) 8.0 gm/dL 6.0-8.3 Speci men moderately (test code = 770) hemolyzed ALBUMIN (BEAKER) (test 3.8 g/dL 3.5-5.0 Speci men moderately code = 1145) hemolyzed BILIRUBIN TOTAL 0.3 mg/dL 0.2-1.2 Specimen mod erately (BEAKER) (test code = hemoly zed 377) BILIRUBIN DIRECT 0.1 mg/dL 0.1-0.5 Specimen mo derately (BEAKER) (test code = hemoly zed 706) ALKALINE PHOSPHATASE 79 U/L 40-150 (BEAKER) (test code = 346) AST (SGOT) (BEAKER) 34 U/L 5-34 Specimen moderately (test code = 353) hemolyzed ALT (SGPT) (BEAKER) 30 U/L 6-55 Specimen moderately (test code = 347) hemolyzed RAD, CHEST, 1 VIEW, NON [id number] 09:16:00Reason for exam:- >intubatedShould this be performed at the bedside?->YesFINAL REPORT Chest two views AP 04/16/2017 9:15 AM CLINICAL INDICATION: intubated COMPARISON: None available IMPRESSION: Support hardware is in satisfactory radiographic position. Cardiomediastinal contours are within normal limits. There is central pulmonary vasculature congestion without remarkable peripheral edema. There are streaky foci of atelectasis bilaterally. Superimposed pneumonia should be excluded clinically. Signed: Rogerio Doeort Verified Date/Time: 04/16/2017 09:16:32 Reading Location: [facility] Radiology Reading Room VITAMIN [id number] 07:31:00 Test Item Value Reference Range Interpretation Comments VITAMIN B12 (BEAKER) (test code = 450 pg/mL 213-816 774) FOLATE, [id number] 07:31:00 Test Item Value Reference Range Interpretation Comments FOLATE (BEAKER) (test code = 362) 8.0 ng/mL >=7.0 URINALYSIS W/ [id number] 07:09:00 Test Item Value Reference Range Interpretation Comments COLOR (BEAKER) (test code = 470) Light Yellow CLARITY (BEAKER) (test code = Hazy 469) SPECIFIC GRAVITY UA (BEAKER) 1.008 1.001-1.035 (test code = 468) PH UA (BEAKER) (test code = 467) 6.0 5.0-8.0 PROTEIN UA (BEAKER) (test code = 20 mg/dL Negative A 464) GLUCOSE UA (BEAKER) (test code = 200 mg/dL Negative A 365) KETONES UA (BEAKER) (test code = Negative Negative 371) BILIRUBIN UA (BEAKER) (test code Negative Negative = 462) BLOOD UA (BEAKER) (test code = Negative Negative 461) NITRITE UA (BEAKER) (test code = Negative Negative 465) LEUKOCYTE ESTERASE UA (BEAKER) Negative Negative (test code = 466) UROBILINOGEN UA (BEAKER) (test 0.2 mg/dL 0.2-1.0 code = 463) RBC UA (BEAKER) (test code = < /HPF 519) WBC UA (BEAKER) (test code = 1 /HPF 520) BACTERIA (BEAKER) (test code = Rare 517) SQUAMOUS EPITHELIAL (BEAKER) < /HPF (test code = 516) HYALINE CASTS (BEAKER) (test 8 /LPF code = 514) SOURCE(BEAKER) (test code = 2795) [id number] 05:59:00 Test Item Value Reference Range Interpretation Comments MAGNESIUM (BEAKER) 3.0 mg/dL 1.6-2.6 H Specimen moderately (test code = 627) hemolyzed [id number] 05:59:00 Test Item Value Reference Range Interpretation Comments PHOSPHORUS (BEAKER) 3.0 mg/dL 2.3-4.7 Specimen moderately (test code = 604) hemolyzed BASIC METABOLIC [id number] 05:59:00 Test Item Value Reference Range Interpretation Comments SODIUM (BEAKER) 137 meq/L 136-145 (test code = 381) POTASSIUM (BEAKER) 3.8 meq/L 3.5-5.1 Specimen moderately (test code = 379) hemolyzed CHLORIDE (BEAKER) 99 meq/L 98-107 (test code = 382) CO2 (BEAKER) (test 23 meq/L 22-29 code = 355) BLOOD UREA NITROGEN 14 mg/dL 7-21 (BEAKER) (test code = 354) CREATININE (BEAKER) 1.48 mg/dL 0.57-1.25 H Specimen moderately (test code = 358) hemolyzed GLUCOSE RANDOM 386 mg/dL 70-105 H (BEAKER) (test code = 652) CALCIUM (BEAKER) 8.0 mg/dL 8.4-10.2 L (test code = 697) EGFR (BEAKER) (test 50 mL/min/1.73 ESTIMA MEET GFR IS code = 1092) sq m NOT ACCURATE CREATININE CLEARANCE IN PREDICTING GLOMERULAR FILTRATION RATE . ESTIMATED GFR I S NOT APPLICABLE FOR DIALYSIS PATIEN TS. PROTHROMBIN [id number] 05:33:00 Test Item Value Reference Range Interpretation Comments PROTIME (BEAKER) (test code = 15.7 seconds 11.7-14.7 H 759) INR (BEAKER) (test code = 370) 1.3 <=5.9 RECOMMENDED COUMADIN/WARFARIN INR THERAPY RANGESSTANDARD DOSE: 2.0 - 3.0 Includes: PROPHYLAXIS forvenous thrombosis, systemic embolization; TREATMENT for venous thrombosis and/or pulmonary embolus.HIGH RISK: Target INR is 2.5-3.5 for patients with mechanical heart valves.BLOOD GAS, [id number] 05:31:00 Test Item Value Reference Range Interpretation Comments PH ARTERIAL (BEAKER) (test code = 7.34 7.35-7.45 L 383) PCO2 ARTERIAL (BEAKER) (test code 43 mmHg 35-45 = 384) PO2 ARTERIAL (BEAKER) (test code 123 mmHg 80-90 H = 385) O2 SATURATION ARTERIAL (BEAKER) 98.2 % 96.0-97.0 H (test code = 386) HCO3 ARTERIAL (BEAKER) (test code 22 mmol/L 21-29 = 388) BASE EXCESS ARTERIAL (BEAKER) -3.2 mmol/L -2.0-3.0 L (test code = 387) PATIENT TEMPERATURE (BEAKER) 37.2 C (test code = 1818) FIO2 (BEAKER) (test code = 1819) 60.0 % CBC W/PLT COUNT & AUTO [id number] 05:08:00 Test Item Value Reference Range Interpretation Comments WHITE BLOOD CELL COUNT (BEAKER) 16.2 K/ L 3.5-10.5 H (test code = 775) RED BLOOD CELL COUNT (BEAKER) 4.53 M/ L 4.63-6.08 L (test code = 761) HEMOGLOBIN (BEAKER) (test code = 14.9 GM/DL 13.7-17.5 410) HEMATOCRIT (BEAKER) (test code = 43.7 % 40.1-51.0 411) MEAN CORPUSCULAR VOLUME (BEAKER) 96.5 fL 79.0-92.2 H (test code = 753) MEAN CORPUSCULAR HEMOGLOBIN 32.9 pg 25.7-32.2 H (BEAKER) (test code = 751) MEAN CORPUSCULAR HEMOGLOBIN CONC 34.1 GM/DL 32.3-36.5 (BEAKER) (test code = 752) RED CELL DISTRIBUTION WIDTH 13.2 % 11.6-14.4 (BEAKER) (test code = 412) PLATELET COUNT (BEAKER) (test 127 K/CU MM 150-450 L code = 756) MEAN PLATELET VOLUME (BEAKER) 10.0 fL 9.4-12.4 (test code = 754) NUCLEATED RED BLOOD CELLS 0 /100 WBC 0-0 (BEAKER) (test code = 413) NEUTROPHILS RELATIVE PERCENT 84 % (BEAKER) (test code = 429) LYMPHOCYTES RELATIVE PERCENT 7 % (BEAKER) (test code = 430) MONOCYTES RELATIVE PERCENT 9 % (BEAKER) (test code = 431) EOSINOPHILS RELATIVE PERCENT 0 % (BEAKER) (test code = 432) BASOPHILS RELATIVE PERCENT 0 % (BEAKER) (test code = 437) NEUTROPHILS ABSOLUTE COUNT 13.58 K/ L 1.78-5.38 H (BEAKER) (test code = 670) LYMPHOCYTES ABSOLUTE COUNT 1.06 K/ L 1.32-3.57 L (BEAKER) (test code = 414) MONOCYTES ABSOLUTE COUNT (BEAKER) 1.38 K/ L 0.30-0.82 H (test code = 415) EOSINOPHILS ABSOLUTE COUNT 0.01 K/ L 0.04-0.54 L (BEAKER) (test code = 416) BASOPHILS ABSOLUTE COUNT (BEAKER) 0.02 K/ L 0.01-0.08 (test code = 417) IMMATURE GRANULOCYTES-RELATIVE 1 % 0-1 PERCENT (BEAKER) (test code = 2801) BLOOD BANK [id number] 17:22:00Product available (04/04/16 11:22 AM) [facility]annBLOOD BANK [id number] 17:20:00Negative (04/04/16 11:20 AM) [facility] [id number] 07:08:001[facility] [id number] 07:08:003[facility] [id number] 07:08:00 Negative (03/14/16 2:08 AM)[facility] [id number] 07:08:005.0 [facility] [id number] 07:08:001.009[facility] [id number] 07:08:00Clear (03/14/16 2:08 AM)[facility] STOOL 2016-03-14 07:08:00Yellow *NA*(03/14/16 2:08 AM)[facility] STOOL 2016-03-14 07:08:00Negative (03/14/16 2:08 AM)[facility] STOOL 2016-03-14 07:08:00Negative (03/14/16 2:08 AM)[facility] STOOL 2016-03-14 07:08:00Negative *NA*(03/14/16 2:08 AM)[facility]annCHEM PANEL 2016-03-14 05:40:000.8[facility]annBLOOD BANK [id number] 02:07:00 Negative (03/13/16 9:07 PM)[facility]annCHEM [id number] 02:07:0043 [facility]annCHEM [id number] 02:07:0021[facility]annCHEM PANEL 2016-03-14 02:07:001.79[facility]annCHEM [id number] 02:07:0095[facility]annCHEM [id number] 02:07:000.3[facility]annCHEM [id number] 02:07:0039[facility]annCHEM [id number] 02:07:0059[facility]annCHEM [id number] 02:07:25295Nandhbcx HermannCHEM [id number] 02:07:007.8 [facility]annCHEM [id number] 02:07:002.5[facility]annCHEM PANEL 2016-03-14 02:07:34337Ghshmepn HermannCHEM [id number] 02:07:75407Qlrzahxz HermannCHEM [id number] 02:07:0021[facility]annCHEM [id number] 02:07:0010.1[facility]annCHEM [id number] 02:07:003.3[facility]annCHEM [id number] 02:07:000.5[facility]annCHEM WDLWQ8508-02-02 02:07:005.3 [facility]annCHEM [id number] 02:07:0012[facility]annCHEM PANEL 2016-03-14 02:07:0015.3[facility] MdhncujIUWMKBNTSD7089-67-40 02:07:007.4[facility] LrjnimqXNTWYZCCEY4302-07-57 02:07:007.3[facility] RlwfeqaRBYQWDGTGX2363-07-60 02:07:0088.5[facility] RerxzhfCRVXUFWTIJ2914-51-76 02:07:003.00[facility] [place] [id number] 02:07:0026.5[facility] InclnluLXYXFIMJOU6371-59-41 02:07:00 8.8[facility] QyvinuoBXVFDAFUBM7990-15-16 02:07:0033.1[facility] HermannHEMATOLOGY 2016-03-14 02:07:00 Test Item Value Reference Range Interpretation Comments MCH (test code = MCH) 29.3 pg 27.0-31.0 [facility] FwixurnGXEPBSQAOQ9875-60-57 02:07:19694Jhyqldpv HermannHEMATOLOGY 2016-03-14 02:07:0015.5[facility] RiylsuqNPUUQLSAPO5514-30-88 02:07:000.1[facility] NebqtpkIGBRZEXDIV3171-33-38 02:07:0014.3[facility] EucoqawVVQGCJLQTJ1385-19-89 02:07:001.9[facility] PtehdcmUQGDAOPAID9028-41-97 02:07:0077.1[facility] Kai CWNGKZJUWV1400-98-97 02:07:005.3[facility] JscmpucEOFCQIRJSW1094-17-87 02:07:001.4 [facility] CruplrcUTBDPBAFMO0773-07-01 02:07:005.6[facility] HermannHEMATOLOGY 2016-03-14 02:07:001.0[facility] KgrngreLSEWGROSCT4265-29-63 02:07:000.4[facility] SemnyoiIIKWCNSCHI1741-52-16 02:07:000.1[facility] HermannANEMIA FAFIS3867-27-49 09:04:60241Ryfupwlt HermannANEMIA APJQF7987-02-23 09:04:92924Badruxkr [place] ANEMIA [id number] 09:04:0022[facility] HermannANEMIA [id number] 09:04:00 11[facility] HermannCHEM [id number] 15:50:0057[facility] HermannCHEM PANEL 2016-02-15 15:50:0014.7[facility] HermannCHEM VXUXD9052-78-15 15:50:008.7[facility] HermannCHEM YGQUG7066-56-67 15:50:0024[facility] HermannCHEM NGLVA2790-82-18 15:50:0099[facility] HermannCHEM ACOWS2237-91-30 15:50:003.7[facility] HermannCHEM DEHVW9713-97-55 15:50:0016[facility] HermannCHEM WEJBI4091-59-91 15:50:20380 [facility]annCHEM YVSNO9877-03-10 15:50:26538Ceblmjuj HermannCHEM PANEL 2016-02-15 15:50:001.42[facility] HermannCHEM OYFVG7152-01-95 09:45:0051[facility] HermannCHEM DSBVD7483-37-62 09:45:000.8[facility] HermannCHEM EGLOV7779-81-06 09:45:0025[facility] HermannCHEM GDEHD4268-13-24 09:45:0015[facility] HermannCHEM JTPBW4018-17-29 09:45:0062[facility] HermannCHEM OHRQZ6221-15-94 09:45:004.8 [facility]annCHEM DXDLS8980-32-06 09:45:000.5[facility] HermannCHEM PANEL 2016-02-14 09:45:009.0[facility] HermannCHEM HQGLE1283-92-88 09:45:43894Mcttizil HermannCHEM FARYS4396-06-26 09:45:0024[facility]annCHEM PNQDD5597-72-54 09:45:38338Naqxslsn HermannCHEM SQJVL0577-42-73 09:45:0017[facility] HermannCHEM KNQTR6161-13-06 09:45:004.1[facility] HermannCHEM SQWZO4982-91-33 09:45:0014.1 [facility]annCHEM NYAXF1190-19-68 09:45:002.3[facility] HermannCHEM PANEL 2016-02-14 09:45:007.1[facility] HermannCHEM FWSAW3064-98-86 09:45:001.55[facility] HermannCHEM WSOWS4970-41-09 09:45:87693Zaafehay HermannCHEM ENADI1475-10-05 09:45:0011[facility] XevsrtoGFOUYTMRGX4307-07-98 09:45:007.7[facility] INWKNXXIRW2052-92-29 09:45:0025.4[facility] XnhijbvTEXGRWUOOO8108-49-11 09:45:00 Test Item Value Reference Range Interpretation Comments MCH (test code = MCH) 32.7 pg 27.0-31.0 [facility] DbouibaBMZGDOOIYH1234-50-81 09:45:0096.6[facility] HermannHEMATOLOGY 2016-02-14 09:45:91809Fsszubkh WxhdszcABZDJHDPWM6415-46-32 09:45:0014.7[facility] UeynwpaESMIJGJBDQ8912-28-37 09:45:0033.8[facility] BdozghjUMCPGJYQQR1972-01-18 09:45:008.4[facility] EgywbhxKSZTOMSZHT8762-08-46 09:45:008.6[facility] NIIOMOHEHH4498-00-83 09:45:002.63[facility] DsgrrklEQGWYTLTPP1786-72-18 09:45:00 1.5[facility] OusggaeHBFCSULRNA4755-25-29 09:45:000.2[facility] HermannHEMATOLOGY 2016-02-14 09:45:000.8[facility] XecgjwoQHJLJFBDSV0912-96-93 09:45:000.1[facility] CwmuihiLGHHGFAVFI1962-75-60 09:45:009.9[facility] WrybmqbJUGHYFRNTL3571-00-40 09:45:0017.2[facility] KpfyhiwKHUURSNMDE4673-04-73 09:45:0069.8[facility] XLPPWNKQVL4289-41-27 09:45:002.2[facility] JncavtpIQSZBRXHKW1215-54-79 09:45:005.9 [facility] AdsdhiqKAIBTUKNJY2171-95-60 09:45:000.9[facility] HermannTOXICOLOGY 2016-02-14 09:45:0014.8[facility] HermannCHEM AWMUJ9482-66-87 09:54:006.3[facility] HermannCHEM VARMD8965-86-91 09:54:000.7[facility] HermannCHEM PYDKO3819-42-18 09:54:0012[facility]annCHEM LMKLW0444-43-04 09:54:003.8[facility] HermannCHEM UHDFU3344-42-57 09:54:0012[facility]annCHEM REZAB7185-55-25 09:54:0061 [facility]annCHEM MQZZY8451-97-15 09:54:002.5[facility] HermannCHEM PANEL 2016-02-13 09:54:0026[facility] HermannCHEM NEUZG0857-93-99 09:54:000.4[facility] HermannCHEM LCRSO3727-55-09 09:54:0013.5[facility] HermannCHEM DSOJO4345-45-19 09:54:0057[facility] HermannCHEM PPAYS7703-84-20 09:54:0027[facility] HermannCHEM DSGZT2398-59-53 09:54:008.7[facility] HermannCHEM DAUIQ6530-66-62 09:54:04995 [facility]annCHEM DSBIW5111-41-41 09:54:004.5[facility] HermannCHEM PANEL 2016-02-13 09:54:001.42[facility] HermannCHEM TSSYH0622-34-79 09:54:99105Jeufmlov HermannCHEM BYKCS7660-13-75 09:54:20147Jlmhhexn HermannCHEM ZVKCP0540-67-69 09:54:0017[facility] HukdiknUGILJBSDUT8064-01-95 09:54:009.3[facility] HermannCHEM AFAGG4654-87-74 17:04:004.9[facility] HermannCHEM BJPSW4765-86-42 17:04:001.8 [facility] PasxqgiEAFERKKTNZ4008-19-46 17:04:0070.5[facility] HermannHEMATOLOGY 2016-02-12 17:04:0018.0[facility] LrkhfafMHJYXCEKZE7693-94-50 17:04:009.7[facility] OhjcgehFTHVLIMTGQ3469-98-48 17:04:006.4[facility] LdmkgxuEYGJWOAXBS6886-40-34 17:04:001.6[facility] WjlievaOETDQKMYZX7804-07-07 17:04:000.5[facility] LPFKZYFGPN6732-34-83 17:04:001.3[facility] OlpqpqaSGZMEHSXHF4757-73-03 17:04:000.9 [facility] GecafpcKGBYWMLUNG4307-32-14 17:04:000.1[facility] [facility]annHEMATOLOGY 2016-02-12 17:04:32690Xxdrprsc FgheprhRNIFNPAKMU6524-89-56 17:04:006.9[facility] AevckjpFHGORHPVOD6194-37-70 17:04:0033.9[facility] XhklucjDGUEQTEAAL7542-56-24 17:04:0015.1[facility] XdopzcqNTBDCKYPRF8234-23-87 17:04:002.69[facility] LYWTCUNMAS6769-79-49 17:04:0096.5[facility] HczidvxNWPSDWVDXZ2183-41-98 17:04:00 9.1[facility] LmnilriISYRZBNQIO5642-55-66 17:04:008.8[facility]annHEMATOLOGY 2016-02-12 17:04:0026.0[facility] ArlanqgETNESGOMNT3784-75-35 17:04:00 Test Item Value Reference Range Interpretation Comments MCH (test code = MCH) 32.7 pg 27.0-31.0 [facility] ZjlzlsbYFQTZOUYLX8577-65-24 08:18:007.7[facility]annHEMATOLOGY 2016-02-12 08:18:001.5[facility] OkexerzWFKTTTKIEA7462-81-24 08:18:000.2[facility] EzdxvyjVAHYSKCWCA3894-33-51 08:18:000.2[facility] PnsnswvWYRHCTEGUI8477-92-81 08:18:001.2[facility] EgdnodgMOGEOBSVLA3482-02-74 08:18:0069.4[facility] SCBRXCXPAN8369-35-44 08:18:0010.5[facility] BveyhanZBOFAGECFV9928-97-76 08:18:00 1.6[facility] TfneuyoOBKTRXOZUU4535-25-68 08:18:001.9[facility] HermannHEMATOLOGY 2016-02-12 08:18:0017.0[facility] AiuhnauKKDZGQQOYI0278-54-82 08:18:0028.9[facility] ZdfzpbeREZUXGVEQK3245-95-61 08:18:0033.6[facility] ZvuiedhPYEKZBPFQK6336-03-70 08:18:0014.6[facility] KgwrlwbZQHJLXJGAN9805-97-33 08:18:0096.6[facility] YRDZRAEQPY8416-35-56 08:18:00 Test Item Value Reference Range Interpretation Comments MCH (test code = MCH) 32.4 pg 27.0-31.0 [facility] MhnrjkaHKZPKOMURS6378-40-63 08:18:009.7[facility]annHEMATOLOGY 2016-02-12 08:18:0011.1[facility] UlwgtblRZGONBKFWN8120-34-51 08:18:002.99[facility] NjpgyhyXWAXNZKRCN1950-56-78 08:18:87964Jgcpdjnl MsaejsvZXZIFNWHDB8782-20-23 08:18:007.4[facility] MllxyyyIACVOBWFSA7627-86-14 09:02:0010.9[facility] GIXOZUGNMN2840-57-45 08:14:000.1[facility] YuknwlvRYZOOERVZA4978-09-12 08:14:00 14.1[facility] UzbncwkFZWTPKOUCH2311-79-14 18:46:00>100[facility] HermannBLOOD BANK EZNQZSI6551-89-46 10:38:00Negative (02/08/16 5:38 AM)[facility]annCHEM WSMZT9110-93-20 10:38:000.11[facility]annURINE AND TMSPT5146-09-56 05:36:00 Negative (02/05/16 12:36 AM)[facility] BTXIQ6269-37-24 05:36:001 [facility] ULGOP7999-98-84 05:36:00Negative (02/05/16 12:36 AM) [facility] RZKFN5858-31-75 05:36:00Negative *NA*(02/05/16 12:36 AM)[facility] BWVIB1412-75-89 05:36:00Negative (02/05/16 12:36 AM) [facility] UGLAH8846-22-87 05:36:00Clear (02/05/16 12:36 AM) [facility] POWKF9633-95-04 05:36:006.0[facility] XTVBA1528-16-31 05:36:00Light Yellow *NA*(02/05/16 12:36 AM)[facility] QAXWH2444-60-69 05:36:001.006[facility] HSKIT9615-95-45 21:31:00Negative (02/01/16 4:31 PM)[facility] IXOUF1345-14-10 21:31:00Negative (02/01/16 4:31 PM)[facility] GFQGN9459-68-84 21:31:00Negative (02/01/16 4:31 PM)[facility] EZQWI3446-28-04 21:31:001[facility] QNKBF1967-91-32 21:31:003[facility]INE AND RVHJM9999-91-62 21:31:005.5[facility] UOHJH0637-29-41 21:31:00Negative *NA*(02/01/16 4:31 PM)[facility] LTLWE8265-33-41 21:31:00Yellow *NA*(02/01/16 4:31 PM)[facility] PKCJV1940-38-19 21:31:00Clear (02/01/16 4:31 PM)[facility] NJZOO3291-28-95 21:31:00 1.007[facility] XGUW5369-85-21 21:31:0041[facility] CHEM 2016-02-01 21:31:0070.40[facility] WUQA3160-26-84 21:31:0038[facility] HermannCARDIAC NLXXLJQ3372-16-83 20:44:00<0.02[facility] HermannCHEM PANEL 2016-01-31 20:44:000.13[facility] HermannCHEM CBTFI9335-61-20 20:44:001.7[facility] HermannCHEM HOIQZ9235-23-88 20:44:000.4[facility] HermannCHEM UEEXA1307-35-56 20:44:007.7[facility] HermannCHEM FVTLQ1585-74-69 20:44:0019[facility] HermannCHEM UDLJF5870-61-91 20:44:0023[facility]annCHEM XWZYG6435-64-29 20:44:0058 [facility]annCHEM SIJKM4504-57-41 20:44:002.8[facility] HermannCHEM PANEL 2016-01-31 20:44:000.6[facility] HermannCHEM EWPMV4625-96-24 20:44:004.9[facility] HermannCHEM IESRQ3348-34-53 20:44:0015[facility] ZdrcfamVDLGNNIVHW1388-93-35 20:44:00 Test Item Value Reference Range Interpretation Comments PTT (test code = PTT) 42.4 s 22.9-35.8 [facility] UwioyznQWCCULDUTL8999-19-51 20:44:00 Test Item Value Reference Range Interpretation Comments PT (test code = PT) 14.6 s 12.0-14.7 [facility] ZevqcitWNOOFJMNAZ1702-79-55 20:44:001.11[facility] HermannLIPIDS 2015-02-16 05:00:0077[facility] BqzokaxOUHXCB6742-22-53 05:00:0029[facility] ATEXRU0237-41-04 05:00:81782Aswxpfit EzfzdlwTNIGCC5298-70-17 05:00:007.66 [facility] MkynzqlOZCRGU1859-52-16 05:00:78166Pgycsepp WfoucghZEZQHN4222-98-13 05:00:81842Kljntbah HermannCARDIAC CQHQBIG4326-26-51 04:23:000.8[facility] CARDIAC EWHYGZE8534-82-41 04:23:000.6[facility] HermannCARDIAC AKDTSOE5742-33-24 04:23:00<0.02[facility]annCARDIAC PFVILLB4897-29-17 04:23:0076[facility]annCARDIAC NURFSUC9732-74-26 00:27:00<0.02[facility]annCARDIAC ENZYMES 2015-02-16 00:27:0089[facility]annCARDIAC TQHHNDH0328-59-90 00:27:001.0 [facility]annCARDIAC FHYIZYK9756-21-16 00:27:000.9[facility] HermannTHYROID GPCXW5625-83-68 00:27:002.000[facility]annCARDIAC UXJLVSH9264-10-01 19:22:00 0.8[facility]annCARDIAC YDDRVPK5327-50-68 19:22:00<0.02[facility] CARDIAC ZTZTEYS5814-89-91 19:22:91256Wpfyeulp HermannCARDIAC EIYUYJU9963-51-85 19:22:000.9[facility] HermannCHEM NXTGR8521-18-12 19:22:0070[facility] HermannCHEM ISTCO3385-24-09 19:22:0087[facility] HermannCHEM JLWTY8354-45-04 19:22:0023 [facility]annCHEM SJJYY3967-59-56 19:22:0027[facility] HermannCHEM PANEL 2015-02-15 19:22:003.4[facility] HermannCHEM CBTZW7071-06-47 19:22:007.7[facility] HermannCHEM EJTGR5695-40-81 19:22:000.8[facility] HermannCHEM BAHRF2977-57-41 19:22:004.3[facility] HermannCHEM CYWII9511-10-96 19:22:006[facility]annCHEM YMABV0731-04-45 19:22:0011.8[facility] HermannCHEM ZNSRD6233-35-86 19:22:000.4 [facility]annCHEM EFZQO7740-70-72 19:22:009.2[facility] HermannCHEM PANEL 2015-02-15 19:22:0025[facility] HermannCHEM WAIGS9865-04-37 19:22:0088[facility] HermannCHEM EHIVF4149-95-26 19:22:34515Kdintohg HermannCHEM PNGYT3761-12-65 19:22:004.8[facility] HermannCHEM IQYIK7024-83-25 19:22:41982Dtqcescs HermannCHEM GQWDA5574-52-46 19:22:001.2[facility] HermannCHEM NDTXX3270-71-74 19:22:007 [facility]annCHEM PDIWY8261-78-10 19:22:002.0[facility] HermannHEMATOLOGY 2015-02-15 19:22:000.4[facility] PggnpirJJYNKHCGRL9494-07-69 19:22:000.0[facility] FnebriiDDCUIJIYOY9113-97-78 19:22:004.6[facility] PggbktzLOSZTKIPRO6031-69-26 19:22:000.8[facility] DuucsvhJNMTEEHPYK7340-87-73 19:22:0010.3[facility] XKASCQOZBW8099-67-99 19:22:005.0[facility] YjrdhzdQNKBREXSDS3522-95-89 19:22:000.4 [facility] XgwxbmfXTWWHDLRJB3313-27-20 19:22:0025.7[facility] HermannHEMATOLOGY 2015-02-15 19:22:002.0[facility] GpnlvhfJRGIVXQPYW3710-79-43 19:22:0058.6[facility] DmnystaRZVCYMSFZE9147-41-57 19:22:001.00[facility] LvzlknrDWMIQNVHZJ8549-78-60 19:22:00 Test Item Value Reference Range Interpretation Comments PT (test code = PT) 13.5 s 12.0-14.7 [facility] BsrbtgsLXKCKMOBSA1239-62-90 19:22:00 Test Item Value Reference Range Interpretation Comments PTT (test code = PTT) 33.7 s 22.9-35.8 [facility] PjgsprhLUMMOAQYIN2208-83-84 19:22:15825Nysuwqdt HermannHEMATOLOGY 2015-02-15 19:22:007.8[facility] VaywkznJIUEDJOZFE3489-32-02 19:22:00 Test Item Value Reference Range Interpretation Comments MCH (test code = MCH) 33.3 pg 27.0-31.0 [facility] AtovcrcCVKNYSABXH2697-79-69 19:22:004.62[facility]annHEMATOLOGY 2015-02-15 19:22:0097.4[facility] YbczvwfKFHMEVSBBO4466-36-67 19:22:0015.4[facility] UlitzntMATECWZVFO9625-02-19 19:22:0045.0[facility] GkztsljALDGWNXKIQ4979-38-09 19:22:0034.2[facility] OghcgneIWJYCKJNKG8536-97-34 19:22:007.0[facility] SSYGEZMDEU3032-96-75 19:22:0016.0[facility] HermannDRUG YAKMSW0186-06-28 20:10:00 Negative *NA*(01/23/15 3:10 PM)[facility]annDRUG RABAPR8170-43-84 20:10:00 Negative *NA*(01/23/15 3:10 PM)[facility] HermannDRUG BFYLAD1996-19-87 20:10:00 Negative *NA*(01/23/15 3:10 PM)[facility]annDRUG OBAZXI1371-05-34 20:10:00 Negative *NA*(01/23/15 3:10 PM)[facility] HermannDRUG DBKVPU6702-67-13 20:10:00See Note (01/23/15 3:10 PM)[facility] HermannDRUG SUAADO0367-11-62 20:10:00Negative *NA*(01/23/15 3:10 PM)[facility]annDR[facility] GVKQLC0598-67-00 20:10:00Positive *ABN*(01/23/15 3:10 PM)[facility]annDRUG UXNFGR0231-93-10 20:10:00Negative *NA*(01/23/15 3:10 PM)[facility] PUDYX2785-38-51 20:10:00Negative (01/23/15 3:10 PM)[facility] OBLXV0534-69-71 20:10:00Negative (01/23/15 3:10 PM)[facility] FHZEI1217-40-26 20:10:003[facility]UR[facility] AND KIYUD6127-88-74 20:10:00<1[facility] STOOL 2015-01-23 20:10:005[facility] AND WQZBP6513-80-91 20:10:00Yellow *NA*(01/23/15 3:10 PM)[facility] JPIWR7079-48-42 20:10:006.0 [facility] IEMEV2303-44-69 20:10:001.017[facility]UR[facility] AND IKSYW4470-21-90 20:10:00Slight *ABN*(01/23/15 3:10 PM)[facility] BFKPR2915-12-27 20:10:00Moderate *ABN*(01/23/15 3:10 PM)[facility] EWFTR1508-26-40 20:10:00Negative *NA*(01/23/15 3:10 PM)[facility] HermannCARDIAC XBANWGA8873-57-16 19:55:000.7[facility] HermannCARDIAC KYWSZHU2135-98-02 19:55:00 <0.02[facility] HermannCARDIAC ZZPINXB0542-99-16 19:55:37[place] CARDIAC DJEQKNK2225-47-09 19:55:001.2[facility] HermannCHEM GZDGA4319-40-17 19:55:0054[facility] HermannCHEM CHVGE7977-18-96 19:55:001.0[facility] HermannCHEM HHGPS6022-87-28 19:55:0023[facility] HermannCHEM MDUQJ8028-01-30 19:55:004.3 [facility] HermannCHEM VURWL3603-29-34 19:55:0039[facility] HermannCHEM PANEL 2015-01-23 19:55:008.8[facility] HermannCHEM PPDLL2775-36-48 19:55:009.3[facility] HermannCHEM YXDEQ7575-29-71 19:55:0020.5[facility] HermannCHEM IARJI4497-31-28 19:55:004.5[facility] HermannCHEM RIPGK4528-85-57 19:55:0010[facility] HermannCHEM XOBQK5634-91-96 19:55:000.5[facility] HermannCHEM WMSEJ3273-53-07 19:55:0088 [facility]annCHEM UNAOP1421-26-05 19:55:004.5[facility] HermannCHEM PANEL 2015-01-23 19:55:60966Uxommtmy HermannCHEM HCZQL8000-87-77 19:55:0017[facility] HermannCHEM MENFD3541-14-97 19:55:21839Zzwspyhz HermannCHEM FEOPW1720-12-48 19:55:97301Evtzsium HermannCHEM JNZFS3301-98-89 19:55:001.5[facility] HermannCHEM IPXGT1690-21-55 19:55:0015[facility] DdxgchkXBIVIXJVEJ0664-46-87 19:55:0089.7 [facility] UqbcfvtRTXYQKAQRA6563-06-19 19:55:0011.6[facility] HermannHEMATOLOGY 2015-01-23 19:55:000.8[facility] UjcvwnxPMNPFUATPD7883-00-18 19:55:006.5[facility] PkjfsmtQSIBYRQOME3996-26-70 19:55:003.2[facility] NkmqbuvBJRLMKBGKX0811-41-26 19:55:000.4[facility] ZwtmysxZYZEVQXSFK2700-81-23 19:55:000.0[facility] TEQWWAEZZJ1712-73-92 19:55:000.1[facility] VsnufzlIAQBRDHZRR3014-31-12 19:55:000.2 [facility] NycofeaSCLMFAJECR0713-89-49 19:55:000.4[facility] HermannHEMATOLOGY 2015-01-23 19:55:00 Test Item Value Reference Range Interpretation Comments PT (test code = PT) 14.2 s 12.0-14.7 [facility] OhujssxFTFHMLVOUE4120-57-60 19:55:001.07[facility] HermannHEMATOLOGY 2015-01-23 19:55:00 Test Item Value Reference Range Interpretation Comments PTT (test code = PTT) 31.2 s 22.9-35.8 [facility] GrvlgcpJPIZCFQVNK9079-21-44 19:55:008.3[facility] HermannHEMATOLOGY 2015-01-23 19:55:0032.8[facility] YxulavpIXXHTIQHLN8709-77-12 19:55:0017.0[facility] DunwlfnCYTLYDDSBH2964-20-58 19:55:34563Iubowecl TthftvpRBMEWHUFAU4142-27-79 19:55:0051.7[facility] KebqmbeGTMUHJXMKC1094-96-77 19:55:0097.9[facility] TKPEBUWKTI4906-16-82 19:55:00 Test Item Value Reference Range Interpretation Comments MCH (test code = MCH) 32.1 pg 27.0-31.0 [facility] XlfmuuaCRTUIXRVHB3253-34-59 19:55:0017.0[facility]annHEMATOLOGY 2015-01-23 19:55:0012.9[facility] NuuzaloYMWJVRLOEQ3350-39-14 19:55:005.28[facility] InkhoylCNIICIHTMI6802-18-23 19:55:00<0.003[facility] HermannTOXICOLOGY 2015-01-23 19:55:00<3[facility] HermannCHEM EFBYY1105-35-37 17:07:0071[facility] HermannCHEM WRWAZ7363-24-90 17:07:000.3[facility] HermannCHEM QJMCJ8482-39-78 17:07:0018[facility] HermannCHEM OYMMU6826-71-18 17:07:0088[facility] HermannCHEM DWPQG3406-72-79 17:07:0036[facility] HermannCHEM MKVJZ0183-80-72 17:07:004.0 [facility] HermannCHEM PIYXS8061-24-90 17:07:008.8[facility] HermannCHEM PANEL 2013-11-20 17:07:0022[facility] HermannCHEM PYHDO7181-51-96 17:07:009.5[facility] HermannCHEM IAKRJ4078-98-16 17:07:78982Ycekuyll HermannCHEM BWCAP3706-44-23 17:07:73999Cunugyrs HermannCHEM ZEYHA8391-76-52 17:07:004.2[facility] HermannCHEM CRBIP7250-68-38 17:07:001.2[facility] HermannCHEM GESQO8501-91-56 17:07:40266 [facility]annCHEM ZCIKM4211-51-86 17:07:007[facility] HermannCHEM PANEL 2013-11-20 17:07:004.8[facility] HermannCHEM TVTFL3228-07-52 17:07:000.8[facility] HermannCHEM AOEOQ1046-45-33 17:07:006[facility] HermannCHEM CYYUQ1702-50-69 17:07:0014.2[facility] HhykrwnLWVCXJWVED8860-91-79 17:07:003.2[facility] WGNWTBQXJB1756-33-10 17:07:0016.7[facility] RnltyynMVJRHQNAEY1168-15-45 17:07:00 6.2[facility] YfrifkhAGVDXZARQE1807-03-01 17:07:0073.3[facility] HermannHEMATOLOGY 2013-11-20 17:07:000.6[facility] HjjlzkoWXNOFMBXQE6132-55-63 17:07:000.1[facility] QmxyqzoKADPIBCICK1817-29-48 17:07:000.3[facility] HmqrinfLHRKCUIDVY0414-45-79 17:07:000.emorial EljjtujAHFJZDSAXJ5749-37-41 17:07:001.6[facility] TNRHCONRHG0888-41-51 17:07:006.8[facility] WzblkxcKKMRBAZVCD9390-50-79 17:07:95313 [facility] UatnzvvSRIOUNRZFK3600-37-66 17:07:007.6[facility] HermannHEMATOLOGY 2013-11-20 17:07:0033.8[facility] CivppiwXWYTOQWNEX3544-66-39 17:07:0014.2[facility] LfncgxaWUKIAYUSFL8491-14-45 17:07:00 Test Item Value Reference Range Interpretation Comments MCH (test code = MCH) 33.1 pg 27.0-31.0 [facility] ArjmovdDWEUEFYWSE2092-79-42 17:07:0097.9[facility] HermannHEMATOLOGY 2013-11-20 17:07:0014.2[facility] NpvxkgyKPVCYBSSIV3980-16-04 17:07:0042.1[facility] LwfgymlAGUGMMJPTN2397-91-63 17:07:009.3[facility] BpqneadVTQQJYHQZN9490-00-48 17:07:004.30[facility] VqnhqmrRWKJEBOAKX8641-03-73 17:07:007.7[facility] HermannCHEM JKDKM8920-01-84 19:25:0047[facility] HermannCHEM WXGPK9407-52-79 19:25:001.7 [facility] HermannCHEM EKWKU4943-41-84 19:25:0014[facility] HermannELECTROLYTES 2013-11-17 19:25:004.3[facility] WjxztpsHPLPBRDVLJ3356-88-17 19:25:0036.8[facility] QmykzfzBITXDKDXOX7122-14-75 19:25:0097.6[facility] AbnlmqrCYWVOAMTKN7944-94-86 19:25:00 Test Item Value Reference Range Interpretation Comments MCH (test code = MCH) 33.2 pg 27.0-31.0 [facility] TpjvezuXACEMSEPYV5078-55-80 19:25:0012.5[facility] HermannHEMATOLOGY 2013-11-17 19:25:007.7[facility] IwzeookJZHACACHGX1524-01-14 19:25:003.77[facility] GyeqtoxTFWGJCQSHQ2480-24-00 19:25:0014.0[facility] RbkaxoqKVFCKGFWZY4877-82-55 19:25:02276Ryehysjf YsmkpgzEVBSZZBNGH9561-96-10 19:25:007.7[facility] LWLGKHQMPR9939-29-34 19:25:0034.0[facility] LrsavldBKONIABHAC5966-81-10 19:25:00 5.7[facility] PcktfqhALFCDALQLZ1419-48-58 19:25:004.3[facility] HermannHEMATOLOGY 2013-11-17 19:25:000.0[facility] LumtbxaFVLTQVPZBS4653-08-70 19:25:000.3[facility] FlpoogdXXWLDZFOTJ4228-60-91 19:25:005.1[facility] ZclrenaXNEDJWCFEM6750-55-06 19:25:0016.3[facility] TlzxnnvGHKUILBNTO9987-09-25 19:25:001.2[facility] QNFPNRSQTQ4213-87-92 19:25:000.3[facility] ExfkkcrXVRKKXQJKK7427-71-72 19:25:000.4 [facility] ExmqeodXSMRRPBEBW5008-74-26 19:25:0074.0[facility] HermannTOXICOLOGY 2013-11-17 19:25:0024.4[facility] HermannCHEM QVEUB1010-04-10 18:20:0054[facility] HermannCHEM DCWWA8451-02-05 18:20:001.5[facility] HermannCHEM LTTLM1315-27-58 18:20:0011[facility] ZytiamcTGRNEJHVWSDS8919-09-72 18:20:004.5[facility] YRCAGQWOFF0988-69-54 18:20:00 Test Item Value Reference Range Interpretation Comments MCH (test code = MCH) 32.7 pg 27.0-31.0 [facility] WspnioqIVMXGDVQSB0552-48-84 18:20:0033.6[facility] HermannHEMATOLOGY 2013-11-13 18:20:73375Baceoubw QltjzugJVKHMCHQLH7706-70-24 18:20:0014.0[facility] IzxxjfrHWCODWYMHP2876-74-03 18:20:007.4[facility] GvsgzdkJOINJMRCBU0703-44-39 18:20:0012.2[facility] PlibssjXZIXZWJSSZ9040-31-28 18:20:003.73[facility] XGIHPMRQSB2908-46-17 18:20:0097.6[facility] DznlufnGDGOUEAIHE3760-02-62 18:20:00 36.4[facility] IinedxaYMOAHRCPDD4421-43-60 18:20:009.7[facility] HermannHEMATOLOGY 2013-11-13 18:20:000.1[facility] WfhgedzDUXQPPFUSS3465-44-28 18:20:002.0[facility] KjboqppMUCTULTWXR2269-43-01 18:20:000.7[facility] IzovkwdQUYAFHRIWN0632-86-56 18:20:000.4[facility] VdjyudmXBSQSPOXEN1466-14-42 18:20:000.6[facility] AXMEKKKOZF8001-39-30 18:20:006.6[facility] LjxtktcMMMMVWSONX8208-92-22 18:20:00 20.5[facility] NbcywvgGFGQZEHSWS1007-05-91 18:20:007.3[facility] HermannHEMATOLOGY 2013-11-13 18:20:003.7[facility] OmjorkkFMYRAAJZYT7905-71-12 18:20:0067.9[facility] LjikymbFXCXDUZBDE6553-09-15 18:20:0024.1[facility]
[2020-01-01] MEDS ORDERED: ONDANSETRON 4 MG/2 ML VIAL ONE (22:29)
[2020-01-01] MEDS ORDERED: FENTANYL CITR 100 MCG/2 ML ONE ×2 (22:29→23:59)
--- NOTE | 2020-01-01 22:56 | RAD REPORT ---
EXAM DESCRIPTION: RAD - Shoulder Left 2 View - 01/01/2020 10:47 pm CLINICAL HISTORY: PAIN COMPARISON: No comparisons FINDINGS: There is a subcoracoid anterior dislocation of the humeral head seen. AC joint degenerativ e changes are present. No fracture evident.
--- NOTE | 2020-01-01 22:57 | RAD REPORT ---
EXAM DESCRIPTION: RAD - Forearm Left - 01/01/2020 10:47 pm CLINICAL HISTORY: PAIN COMPARISON: Forearm Left dated 11/30/2015 FINDINGS: Degenerative changes present involving the wrist. No acute fracture or dislocation evident .
--- NOTE | 2020-01-01 22:57 | RAD REPORT ---
EXAM DESCRIPTION: RAD - Humerus Left - 01/01/2020 10:47 pm CLINICAL HISTORY: PAIN COMPARISON: No comparisons FINDINGS: Subcoracoid anterior dislocation of the humeral head noted. No gross fracture appreciated.
[2020-01-01] MEDS ORDERED: MIDAZOLAM HCL 2 MG/2 ML INJ ONE (23:58)
--- NOTE | 2020-01-02 02:05 | ER ---
Nurse's Notes [facility] Name: Karlos Leblanc Age: 54 yrs Sex: Male : 1965 Arrival Date: 01/01/2020 Time: 21:37 Bed 5 Private MD: Diagnosis: Anterior Dislocation of Humeral Head Presentation: 12/31 21:59 Chief complaint: Patient states: Fall 8 days ago. Left shoulder pain with limited ROM ll1 since. + edema noted to SANDRA. Coronavirus screen: Client denies travel out of the [place] in the last 14 days. At this time, the client does not indicate any symptoms associated with coronavirus-19. "smokers cough". Ebola Screen: Patient denies travel to an Ebola-affected area in the 21 days before illness onset. Initial Sepsis Screen: Does the patient meet any 2 criteria? HR > 90 bpm. Risk Assessment: Do you want to hurt yourself or someone else? Patient reports no desire to harm self or others. Onset of symptoms was January 24, 2020. 21:59 Method Of Arrival: Ambulatory ll1 21:59 Acuity: KENIA 3 ll1 Historical: - Allergies: 22:03 NKDA; ll1 - PMHx: 22:03 ADD/ADHD; CHF; PVD; Diabetes - NIDDM; COPD; CVA; Myocardial infarction; Seizures; skin ll1 cancer; - Immunization history:: Last tetanus immunization: up to date. - Social history:: Smoking status: Patient reports the use of cigarette tobacco products, smokes one pack cigarettes per day. Patient uses alcohol, street drugs, marijuana. Screenin:30 Abuse screen: Denies threats or abuse. Nutritional screening: No deficits noted. jb4 Tuberculosis screening: No symptoms or risk factors identified. Fall Risk Fall in past 12 months (25 points). Assessment: 22:00 General: Appears in no apparent distress. uncomfortable, Behavior is calm, cooperative, jb4 appropriate for age. Pain: Complains of pain in left shoulder Pain does not radiate. Pain currently is 9 out of 10 on a pain scale. Neuro: Level of Consciousness is awake, alert, obeys commands, Oriented to person, place, time, situation. Cardiovascular: Patient's skin is warm and dry. Respiratory: Airway is patent Respiratory effort is even, unlabored, Respiratory pattern is regular, symmetrical. GI: No signs and/or symptoms were reported involving the gastrointestinal system. : No signs and/or symptoms were reported regarding the genitourinary system. EENT: No signs and/or symptoms were reported regarding the EENT system. Derm: Skin is intact, Skin is pink, warm \\T\\ dry. Musculoskeletal: Circulation, motion, and sensation intact. Range of motion: limited in left shoulder. 23:00 Reassessment: No changes from previously documented assessment. Patient and/or family jb4 updated on plan of care and expected duration. Pain level reassessed. Patient is alert, oriented x 3, equal unlabored respirations, skin warm/dry/pink. Patient states feeling better. 01/01 00:00 Reassessment: Patient and/or family updated on plan of care and expected duration. Pain jb4 level reassessed. Patient is alert, oriented x 3, equal unlabored respirations, skin warm/dry/pink. 00:45 Reassessment: Patient and/or family updated on plan of care and expected duration. Pain jb4 level reassessed. Patient is alert, oriented x 3, equal unlabored respirations, skin warm/dry/pink. Pt remains A\\T\\O x4, reports pain decreased after medication administration. Attempt to reduce shoulder unsucessful. Patient states feeling better. 01:45 Reassessment: Patient and/or family updated on plan of care and expected duration. Pain jb4 level reassessed. Pt resting peacefully in bed with no s/s of pain or distress noted. respirations are even and unlabored. 02:59 Reassessment: Patient and/or family updated on plan of care and expected duration. Pain jb4 level reassessed. Report given to TAVO Gamez \\T\\ [facility]. 03:58 Reassessment: No changes from previously documented assessment. Patient and/or family jb4 updated on plan of care and expected duration. Pain level reassessed. Patient is alert, oriented x 3, equal unlabored respirations, skin warm/dry/pink. 04:30 Reassessment: Patient and/or family updated on plan of care and expected duration. Pain jb4 level reassessed. Patient is alert, oriented x 3, equal unlabored respirations, skin warm/dry/pink. Pt reports increased pain. Provider notified. See MAR for orders. 05:15 Reassessment: Patient and/or family updated on plan of care and expected duration. Pain jb4 level reassessed. Patient is alert, oriented x 3, equal unlabored respirations, skin warm/dry/pink. Pt transferred to Receiving facility via EMS. reports feeling better after Fentanyl administration. Vital Signs: 12/31 21:59 BP 126 / 69; Pulse 95; Resp 18; Temp 98.5; Pulse Ox 96% ; Pain 9/10; ll1 23:14 Weight 88.3 kg (M); jp3 01/01 00:00 BP 119 / 72; Pulse 73; Resp 17; Pulse Ox 100% on R/A; oe 01:00 BP 147 / 69; Pulse 62; Resp 17; Pulse Ox 100% on R/A; oe 02:00 BP 164 / 72; Pulse 74; Resp 16; Pulse Ox 100% on R/A; jb4 02:45 BP 126 / 51; Pulse 66; Resp 16; Pulse Ox 100% on R/A; jb4 04:00 BP 175 / 91; Pulse 95; Resp 16; Pulse Ox 99% on R/A; jb4 ED Course: 12/31 21:37 Patient arrived in ED. cl3 22:02 Triage completed. ll1 22:03 Arm band placed on Patient placed in an exam room, on a stretcher. ll1 22:08 Seema [facility]NP-C [facility] kb 22:08 Celso Mccain MD is Attending Physician. kb 22:18 Jason Cabrera, RN is Primary Nurse. jb4 22:30 Patient has correct armband on for positive identification. Placed in gown. Bed in low jb4 position. Call light in reach. Side rails up X 1. Pulse ox on. NIBP on. 01/01 05:15 No provider procedures requiring assistance completed. Patient transferred, IV remains jb4 in place. 06:17 tried to call pts family member Armen to inform him that pt left cellphone at our [facility] facility. I left a voicemail. 06:19 called [facility] spoke with Gena Barone to inform her that the patient left his mw2 cellphone on the bed at our facility. We did a three way call with the charge nurse at [facility] and they are informed as well. 06:21 Gave the pts cellphone to our Nurses' Registry Director Dannie. mw2 Administered Medications: 12/31 22:25 Drug: fentaNYL (PF) 50 mcg {Note: RASS 0.} Route: IVP; Site: right antecubital; ll1 23:00 Follow up: Response: No adverse reaction; Pain is decreased; RASS: Alert and Calm (0) jb4 22:25 Drug: Zofran (Ondansetron) 4 mg Route: IVP; Site: right antecubital; 1 23:00 Follow up: Response: No adverse reaction jb4 23:09 CANCELLED (Physician Discretion): Valium 5 mg IVP once kb 01/01 00:11 Drug: fentaNYL (PF) 50 mcg Route: IVP; Site: right antecubital; jb4 00:45 Follow up: Response: No adverse reaction; Pain is decreased; RASS: Alert and Calm (0) jb4 00:12 Drug: Versed 1 mg Route: IVP; Site: right antecubital; jb4 00:45 Follow up: Response: No adverse reaction jb4 00:14 Drug: Versed 1 mg Route: IVP; Site: right antecubital; jb4 00:45 Follow up: Response: No adverse reaction jb4 00:19 Drug: fentaNYL (PF) 50 mcg {Note: rass score 0.} Route: IVP; Site: right antecubital; jb4 00:45 Follow up: Response: No adverse reaction; Pain is decreased; RASS: Alert and Calm (0) jb4 04:35 Drug: fentaNYL (PF) 50 mcg Route: IVP; Site: right antecubital; jb4 05:17 Follow up: Response: No adverse reaction; Pain is decreased; RASS: Alert and Calm (0) jb4 Outcome: 02:04 ER care complete, transfer ordered by MD. ramires 05:15 Transferred by ground EMS EMS. to [facility], [facility], Transfer form jb4 completed. X-rays sent w/ patient. 05:15 Condition: stable 05:15 Discharge instructions given to patient, Instructed on the need for transfer, Demonstrated understanding of instructions. 05:17 Patient left the ED. jb4 Signatures: Seema Nguyen, LLOYDC CHELLE-Jason De León, RN RN jb4 Hunter Webb MyKena mw2 Stan Thomas jp3 Cate Cabral cl3 Phil Cabral RN RN ll1 Corrections: (The following items were deleted from the chart) 03:04 08 23:00 Reassessment: No changes from previously documented assessment. Patient jb4 and/or family updated on plan of care and expected duration. Pain level reassessed. Patient is alert, oriented x 3, equal unlabored respirations, skin warm/dry/pink. jb4 01/01 03:04 00:00 Reassessment: Patient and/or family updated on plan of care and expected jb4 duration. Pain level reassessed. Patient is alert, oriented x 3, equal unlabored respirations, skin warm/dry/pink. Pt remains A\\T\\O x4, reports pain decreased after medication administration Patient states feeling better. jb4 03:58 02:59 Reassessment: Report given to TAVO Gamez \\T\\ [facility]. jb4 jb4
--- NOTE | 2020-01-02 02:05 | EDPHYS ---
Physician Documentation [facility] Name: Karlos Leblanc Age: 54 yrs Sex: Male : 1965 Arrival Date: 01/01/2020 Time: 21:37 Bed 5 Private MD: ED Physician Celso Mccani HPI: 12/31 22:35 This 54 yrs old Male presents to ER via Ambulatory with complaints of kb Shoulder Injury, Fall Injury. 22:35 The patient or guardian complains of decreased range of motion, an injury, pain, kb swelling, tenderness. left shoulder. Context: The problem was sustained at home, resulted from a fall, The patient experiences decreased range of motion, The patient notes a deformity. Onset: The symptoms/episode began/occurred 8 day(s) ago. Modifying factors: the symptoms are alleviated by nothing. The symptoms are aggravated by movement. Associated signs and symptoms: The patient has no apparent associated signs or symptoms. Severity of symptoms: At their worst the symptoms were moderate, in the emergency department the symptoms are unchanged. Treatment prior to arrival includes: no previous treatment. The patient has not experienced similar symptoms in the past. The patient has not recently seen a physician. Pt reports he fell 8 days ago onto left arm. Reports pain from shoulder to wrist. Came to the ER on the day it occurred but it was too busy so he left. States the pain has been constant since then. Reports decreased range of motion to shoulder. Reports tenderness to shoulder, upper arm and forearm. . Historical: - Allergies: 22:03 NKDA; ll1 - PMHx: 22:03 ADD/ADHD; CHF; PVD; Diabetes - NIDDM; COPD; CVA; Myocardial infarction; Seizures; skin ll1 cancer; - Immunization history:: Last tetanus immunization: up to date. - Social history:: Smoking status: Patient reports the use of cigarette tobacco products, smokes one pack cigarettes per day. Patient uses alcohol, street drugs, marijuana. ROS: 22:35 Constitutional: Negative for fever, chills, and weight loss, Cardiovascular: Negative kb for chest pain, palpitations, and edema, Respiratory: Negative for shortness of breath, cough, wheezing, and pleuritic chest pain, Abdomen/GI: Negative for abdominal pain, nausea, vomiting, diarrhea, and constipation, Back: Negative for injury and pain, Skin: Negative for injury, rash, and discoloration, Neuro: Negative for headache, weakness, numbness, tingling, and seizure. 22:35 MS/extremity: Positive for injury or acute deformity, decreased range of motion, pain, swelling, tenderness, of the left arm. Exam: 22:37 Constitutional: This is a well developed, well nourished patient who is awake, alert, kb and in no acute distress. Head/Face: Normocephalic, atraumatic. Chest/axilla: Normal chest wall appearance and motion. Nontender with no deformity. No lesions are appreciated. Cardiovascular: Regular rate and rhythm with a normal S1 and S2. No gallops, murmurs, or rubs. Normal PMI, no JVD. No pulse deficits. Respiratory: Lungs have equal breath sounds bilaterally, clear to auscultation and percussion. No rales, rhonchi or wheezes noted. No increased work of breathing, no retractions or nasal flaring. Abdomen/GI: Soft, non-tender, with normal bowel sounds. No distension or tympany. No guarding or rebound. No evidence of tenderness throughout. Skin: Warm, dry with normal turgor. Normal color with no rashes, no lesions, and no evidence of cellulitis. Neuro: Awake and alert, GCS 15, oriented to person, place, time, and situation. Cranial nerves II-XII grossly intact. Motor strength 5/5 in all extremities. Sensory grossly intact. Cerebellar exam normal. Normal gait. 22:37 Musculoskeletal/extremity: Extremities: grossly normal except: noted in the left shoulder: decreased ROM, deformity, pain, swelling, tenderness, noted in the left hand: swelling, noted in the left arm: pain, tenderness, ROM: limited active range of motion due to pain, in the left shoulder, Circulation is intact in all extremities. Sensation intact. Vital Signs: 21:59 BP 126 / 69; Pulse 95; Resp 18; Temp 98.5; Pulse Ox 96% ; Pain 9/10; ll1 23:14 Weight 88.3 kg (M); jp3 01/01 00:00 BP 119 / 72; Pulse 73; Resp 17; Pulse Ox 100% on R/A; oe 01:00 BP 147 / 69; Pulse 62; Resp 17; Pulse Ox 100% on R/A; oe 02:00 BP 164 / 72; Pulse 74; Resp 16; Pulse Ox 100% on R/A; jb4 02:45 BP 126 / 51; Pulse 66; Resp 16; Pulse Ox 100% on R/A; jb4 04:00 BP 175 / 91; Pulse 95; Resp 16; Pulse Ox 99% on R/A; jb4 MDM: 12/31 22:08 Patient medically screened. kb 22:35 Data reviewed: vital signs, nurses notes. Data interpreted: Pulse oximetry: on room air kb is 96 %. Interpretation: normal. 23:43 ED course: Conscious sedation consent signed by pt and ERP. Pt being prepped for kb procedure. . 01/01 00:25 ED course: Attempted reduction with ERP under conscious sedation. Unable to reduce kb dislocation. Will consult Joshua. 02:03 Counseling: I had a detailed discussion with the patient and/or guardian regarding: the kb historical points, exam findings, and any diagnostic results supporting the discharge/admit diagnosis, radiology results, the need for further work-up and treatment in the hospital. ED course: Dr Zamudio accepts pt for transfer. 12/31 22:11 Order name: Shoulder Left (2 View) XRAY kb 12/31 22:11 Order name: Forearm Left XRAY kb 12/31 22:11 Order name: Humerus Left XRAY kb 12/31 22:58 Order name: RAD; Complete Time: 22:59 EDMS 12/31 22:58 Order name: RAD; Complete Time: 22:59 EDMS 12/31 22:59 Order name: RAD; Complete Time: 23:01 EDMS 12/31 22:11 Order name: IV Start; Complete Time: 22:17 kb 12/31 23:08 Order name: Conscious Sedation; Complete Time: 01:03 kb 12/31 23:10 Order name: Misc. Order: obtain pt's weight; Complete Time: 01:03 kb Administered Medications: 12/31 22:25 Drug: fentaNYL (PF) 50 mcg {Note: RASS 0.} Route: IVP; Site: right antecubital; ll1 23:00 Follow up: Response: No adverse reaction; Pain is decreased; RASS: Alert and Calm (0) [facility] 22:25 Drug: Zofran (Ondansetron) 4 mg Route: IVP; Site: right antecubital; ll1 23:00 Follow up: Response: No adverse reaction jb4 23:09 CANCELLED (Physician Discretion): Valium 5 mg IVP once kb 01/01 00:11 Drug: fentaNYL (PF) 50 mcg Route: IVP; Site: right antecubital; jb4 00:45 Follow up: Response: No adverse reaction; Pain is decreased; RASS: Alert and Calm (0) jb4 00:12 Drug: Versed 1 mg Route: IVP; Site: right antecubital; jb4 00:45 Follow up: Response: No adverse reaction jb4 00:14 Drug: Versed 1 mg Route: IVP; Site: right antecubital; jb4 00:45 Follow up: Response: No adverse reaction jb4 00:19 Drug: fentaNYL (PF) 50 mcg {Note: rass score 0.} Route: IVP; Site: right antecubital; jb4 00:45 Follow up: Response: No adverse reaction; Pain is decreased; RASS: Alert and Calm (0) jb4 04:35 Drug: fentaNYL (PF) 50 mcg Route: IVP; Site: right antecubital; jb4 05:17 Follow up: Response: No adverse reaction; Pain is decreased; RASS: Alert and Calm (0) jb4 Disposition: 23:59 Co-signature as Attending Physician, Celso Mccain MD I agree with the assessment and [facility] plan of care. Disposition: 01/02/20 02:04 Transfer ordered to [facility]. Diagnosis is Anterior Dislocation of Humeral Head. - Reason for transfer: Higher level of care. - Accepting physician is Robb. - Condition is Stable. - Problem is new. - Symptoms are unchanged. Signatures: Dispatcher [employer] Seema Amezcua, LIQUID YEAST SUPERVISOR-C LIQUID YEAST SUPERVISOR-Ckb Jason Cabrera RN RN jb4 Phil Cabral RN RN ll1 Celso Mccain MD MD [facility] Corrections: (The following items were deleted from the chart) 12/31 23:09 23:08 Valium 5 mg IVP once ordered. kb kb 01/01 05:17 02:04 01/02/2020 02:04 Transfer ordered to [facility]. jb4 Diagnosis is Anterior Dislocation of Humeral Head. Reason for transfer: Higher level of care. Accepting physician is Robb. Condition is Stable. Problem is new. Symptoms are unchanged. kb
[2020-01-02] MEDS ORDERED: FENTANYL CITR 100 MCG/2 ML ONE (04:42)
[2020-01-02 05:29] VITALS: TEMP 98.5
[2020-01-02 05:36] VITALS: BP 175/91; O2SAT 99
== END 2020-01-02 05:17 | disposition short-term general hospital (02) ==
LOC: ER 21:35
PROC: 0RSKXZZ Reposition Left Shoulder Joint, External Approach (ICD-10-PCS; principal; 2020-01-02)
DX: S43.015A Anterior dislocation of left humerus, initial encounter (principal); W19.XXXA Unspecified fall, initial encounter; Y93.9 Activity, unspecified; Y92.009 Unspecified place in unspecified non-institutional (private) residence as the place of occurrence of the external cause; F17.210 Nicotine dependence, cigarettes, uncomplicated
CPT/HCPCS: 73090; 73060; 73030; 96375; 96374; 99285; 23655; J2250; J3010 ×3; J2405

== ENCOUNTER 2020-02-29 14:08 | Emergency (ER) | payer OTHER ==
[2020-02-29] MEDS ORDERED: LORazepam 2 MG/ML VIAL ONE ×2 (14:59→15:08)
[2020-02-29] MEDS ORDERED: NA CHLORIDE 0.9% 100 ML IV ONE (15:04)
[2020-02-29] MEDS ORDERED: FOSPHENYTOIN PE 500 MG/10 ML VIAL ONE (15:05)
[2020-02-29 15:15] LABS: Absolute Lymphocytes (CBC) 1.6 K/uL (0.7-4.9); Basophils % 0.8 % (0-1.3); Hematocrit 42.2 % (39.6-49.0); Lymphocytes % 11.5 % (15.3-44.8); MPV 8.7 fL (7.6-11.3); RBC Red Blood Cell Count 4.47 M/uL (4.33-5.43)
[2020-02-29 15:18] LABS: Protime INR 0.97
[2020-02-29 15:20] LABS: Urine Blood TRACE (NEG); Urine Glucose NEGATIVE (NEG); Urine Protein 2+ (NEG)
[2020-02-29 15:30] LABS: Barbiturates NEGATIVE (NEGATIVE); Benzodiazepines NEGATIVE (NEGATIVE); Cocaine NEGATIVE (NEGATIVE); METHAMPHETAM NEGATIVE (NEGATIVE); Methadone NEGATIVE (NEGATIVE); Opiates NEGATIVE (NEGATIVE); Phencyclidine NEGATIVE (NEGATIVE); THC Cannibis NEGATIVE (NEGATIVE)
[2020-02-29 15:34] LABS: ALT/SGPT 20 U/L (12-78); AST/SGOT 14 U/L (15-37); Albumin 3.4 g/dL (3.4-5.0); Alkaline Phosphatase 89 U/L (45-117); BUN Blood Urea Nitrogen 14 mg/dL (7-18); Bicarbonate 15 mmol/L (21-32); Bilirubin Direct 0.1 mg/dL (0-0.2); Bilirubin Total 0.3 mg/dL (0.2-1.0); Glucose Level 126 mg/dL (74-106); Magnesium 2.4 mg/dL (1.8-2.4); NT PRO-BNP 718 pg/mL (<125); Potassium 3.7 mmol/L (3.5-5.1); Sodium Level 140 mmol/L (136-145); Troponin (Emerg Dept Use Only) < 0.02 ng/mL (0.0-0.045)
--- NOTE | 2020-02-29 15:46 | RAD REPORT ---
EXAM DESCRIPTION: CT - [id number] - 02/29/2020 3:33 pm CLINICAL HISTORY: Trauma, head and neck injury. PAIN COMPARISON: Head C Spine Mpr Wo Con dated 05/01/2018 TECHNIQUE: Axial 5 mm thick images of the head were obtained. Axial 2 mm thick images of the cervical spine were obtained with sagittal and coronal reconstruction images generated and reviewed. All CT scans are performed using dose optimization technique as appropriate and may include automated exposure control or mA/KV adjustment according to patient size. FINDINGS: CT HEAD WITHOUT CONTRAST: No acute hemorrhage, hydrocephalus or extra-axial collection is identified.Mild generalized brain atr ophy is present with mild periventricular and deep white matter chronic microvascular ischemic change s.No areas of brain edema or midline shift. The paranasal sinuses and mastoids are clear.The calvarium is intact. CT CERVICAL SPINE WITHOUT CONTRAST: No fracture or subluxation.Mild spondylosis is seen involving the lower cervical levels with posterio r osteophytes.No prevertebral soft tissues swelling is identified. Moderate carotid atherosclerosis b ilaterally. A large 16 mm stone is present along the right submandibular region likely representing sialolithiasi s. IMPRESSION: No acute intracranial or cervical spine findings. Mild lower cervical spondylosis. 16 mm salivary duct stone right submandibular region.
--- NOTE | 2020-02-29 16:15 | RAD REPORT ---
EXAM DESCRIPTION: RAD - Chest Single View - 02/29/2020 4:00 pm CLINICAL HISTORY: COUGH Chest pain. COMPARISON: Chest Single View dated 09/01/2019; Chest Single View dated 12/27/2018; Chest Single View da roseann 03/21/2018; Chest Single View dated 04/16/2017 FINDINGS: Portable technique limits examination quality. Mild interstitial pulmonary edema suspected. The heart is normal in size. No displaced fractures.
--- NOTE | 2020-02-29 16:16 | RAD REPORT ---
EXAM DESCRIPTION: RAD - Shoulder Left 2 View - 02/29/2020 4:00 pm CLINICAL HISTORY: Pain;Deformity COMPARISON: Shoulder Left 2 View dated 01/01/2020 FINDINGS: Subcoracoid anterior dislocation of the humeral head is noted. AC joint degenerative allen es are present. Tiny bony fragments are seen lateral to the glenoid.
[2020-02-29 17:22] LABS: Potassium 4.1 mmol/L (3.5-5.1)
--- NOTE | 2020-02-29 17:34 | ER ---
Nurse's Notes [facility] Name: Karlos Leblanc Age: 54 yrs Sex: Male : 1965 Arrival Date: 02/29/2020 Time: 14:14 Bed 3 Private MD: Diagnosis: Epilepsy and recurrent seizures;Unspecified kidney failure-chronic;Recurrent dislocation, left shoulder-chronic Presentation: 02/28 14:15 Chief complaint: EMS states: Pt had a seizure about 1130 today, refused to be jl7 transported to ED at that time. Went to friends and took 2 hydrocodone and passed out, responding to painful stimuli only on arrival. Pt verbally responsive during triage, A\T\Ox4, reports hx of seizures, has been taking medications as ordered, had a seizure last week and c/o left shoulder pain. Abrasions to nose and right forearm noted. Coronavirus screen: Client denies travel out of the [place] in the last 14 days. At this time, the client does not indicate any symptoms associated with coronavirus-19. Ebola Screen: No symptoms or risks identified at this time. Initial Sepsis Screen: Does the patient meet any 2 criteria? HR > 90 bpm. No. Patient's initial sepsis screen is negative. Does the patient have a suspected source of infection? No. Patient's initial sepsis screen is negative. Risk Assessment: Do you want to hurt yourself or someone else? Patient reports no desire to harm self or others. Onset of symptoms was February 29, 2020 at 13:30. Care prior to arrival: None. Transition of care: patient was not received from another setting of care. 14:15 Method Of Arrival: EMS: [facility] jl7 14:15 Acuity: KENIA 3 jl7 Triage Assessment: 14:15 General: Appears in no apparent distress. uncomfortable, Behavior is calm, cooperative, jl7 appropriate for age. Pain: Complains of pain in left shoulder. Neuro: Level of Consciousness is awake, alert, obeys commands, Oriented to person, place, time, situation. Cardiovascular: Patient's skin is warm and dry. Respiratory: Airway is patent Respiratory effort is even, unlabored, Respiratory pattern is regular, symmetrical. GI: Patient currently denies diarrhea, nausea, vomiting. Derm: Skin is pink, warm \T\ dry. Injury Description: Abrasion sustained to right arm and nose. Historical: - Allergies: 14:26 NKDA; jl7 - Home Meds: 14:26 acetic acid topical [Active]; amlodipine 10 mg tab 1 tab once daily [Active]; aspirin jl7 81 mg Oral chew 1 tab once daily [Active]; Aspirin Oral [Active]; atorvastatin 80 mg Oral tab 1 tab once daily [Active]; Centrum Oral [Active]; clopidogrel 75 mg Oral tab 1 tab once daily [Active]; gabapentin 100 mg Oral cap 2 caps 3 times per day [Active]; ibuprofen 200 mg Oral tab 2 tabs every 4-6 hours [Active]; lisinopril 10 mg Oral tab 1 tab once daily [Active]; Metoprolol Tartrate Oral [Active]; naproxen sodium 220 mg Oral cap [Active]; unknown seizure med [Active]; VITAMIN B1 100 MG DAILY [Active]; Santyl 250 unit/gram Topical oint once daily [Active]; - PMHx: 14:26 ADD/ADHD; CHF; COPD; CVA; Diabetes - NIDDM; Myocardial infarction; PVD; Seizures; skin jl7 cancer; - Immunization history:: Adult Immunizations unknown. - Social history:: Smoking status: Patient reports the use of cigarette tobacco products, smokes one pack cigarettes per day. - Family history:: not pertinent. Screenin:30 Abuse screen: Denies threats or abuse. Denies injuries from another. Nutritional jl7 screening: No deficits noted. Tuberculosis screening: No symptoms or risk factors identified. 14:30 Fall Risk Fall in past 12 months (25 points). Secondary diagnosis (15 points) seizures, jl7 IV access (20 points). Ambulatory Aid- Crutches/Cane/Walker (15 pts). Gait- Weak (10 pts.). Mental Status- Oriented to own ability (0 pts). Total Mota Fall Scale indicates High Risk Score (45 or more points). Fall prevention measures have been instituted. Side Rails Up X 2 Placed Close to Nursing Station Frequent Obs/Assessments Occuring As available patient and family educated on Fall Prevention Program and Strategies. Assessment: 14:15 General: See triage assessment . jl7 14:30 Reassessment: Patient appears in no apparent distress at this time. Pt laying in bed jl7 with eyes closed, respirations even and unlabored. 14:50 Reassessment: Pt actively seizing, Dr. Pichardo at bedside. jl7 15:10 Reassessment: Pt post-ictal at this time. jl7 17:15 Reassessment: Pt A\T\Ox4, denies discomfort, called son to come get patient from ER, son shoshana reports he's on his way. 17:24 Reassessment: PT. resting with eyes closed, respirations even, unlabored. rb1 Vital Signs: 14:15 BP 155 / 82; Pulse 98; Resp 18 S; Temp 99.3(O); Pulse Ox 93% on R/A; jl7 15:01 BP 145 / 75; Pulse 96; Resp 21; Pulse Ox 95% on R/A; rb1 17:00 BP 136 / 81; Pulse 86; Resp 20; Pulse Ox 94% on R/A; rb1 18:00 BP 130 / 85; Pulse 75; Resp 15; Pulse Ox 100% ; jl7 ED Course: 14:14 Patient arrived in ED. jl7 14:15 Davy Garza RN is Primary Nurse. jl7 14:15 Arm band placed on right wrist. jl7 14:17 Aaron Pichardo MD is Attending Physician. [facility] 14:17 Stevie Payne PA is PHCP. [facility] 14:20 Triage completed. jl7 14:30 Patient has correct armband on for positive identification. Placed in gown. Bed in low jl7 position. Call light in reach. Side rails up X2. Seizure precautions initiated. residential monitor on. Pulse ox on. NIBP on. Warm blanket given. 14:50 Inserted saline lock: 18 gauge in right EJ, using aseptic technique. jl7 15:00 Inserted saline lock: 20 gauge in right forearm, using aseptic technique. jl7 15:10 Initial lab(s) drawn, by ED staff, sent to lab. jl7 15:20 Inserted saline lock: 20 gauge in left antecubital area, using aseptic technique. dh4 forearm, using aseptic technique. Blood collected. 15:33 CT Head C Spine In Process Unspecified. EDMS 16:00 Shoulder Left (2 View) XRAY In Process Unspecified. EDMS 16:00 XRAY Chest (1 view) In Process Unspecified. EDMS 17:33 Harish Ramos MD is Referral Physician. [facility] 17:34 Anibal Escobar MD is Referral Physician. [facility] 18:20 No provider procedures requiring assistance completed. IV discontinued, intact, jl7 bleeding controlled, No redness/swelling at site. Pressure dressing applied. Administered Medications: 14:52 Drug: Ativan 2 mg Route: IVP; Site: right jugular; jd3 14:55 Follow up: Response: No adverse reaction; Marked relief of symptoms jl7 15:10 Drug: Fosphenytoin 1 grams Route: IVPB; Site: right jugular; jl7 15:25 Follow up: Response: No adverse reaction; IV Status: Completed infusion jl7 15:33 Not Given (Duplicate Order): Fosphenytoin 1 grams IVPB once; (mix in 50 to 100mL NS) jl7 18:06 Drug: Dilantin 300 mg Route: PO; jl7 18:07 Follow up: Response: No adverse reaction jl7 18:07 Not Given (Other Intervention Used): Ativan 2 mg IVP once jl7 Outcome: 17:34 Discharge ordered by . [facility] 18:22 Discharged to home via wheelchair, with family. jl7 18:22 Condition: stable 18:22 Discharge instructions given to patient, Instructed on discharge instructions, follow up and referral plans. medication usage, Demonstrated understanding of instructions, follow-up care, medications, Prescriptions given X 1. 18:23 Patient left the ED. jl7 Signatures: Dispatcher [employer] EDAaron De Jesus MD MD cha Mickail, Joel, PA PA jmm Barber, Rebecca, RN RN rb1 Davy Garza RN RN jl7 Gordy Dyer RN RN jd3 Huhn, Donald formerly [facility] Corrections: (The following items were deleted from the chart) 15:33 14:48 Ativan 2 mg IVP in right jugular jl7 jl7
--- NOTE | 2020-02-29 17:34 | EDPHYS ---
Physician Documentation 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 15:03 The patient presents with confusion. Onset: The symptoms/episode began/occurred just riya prior to arrival. Possible causes: seizure. The patient presents after having a single isolated seizure. Character of seizure(s): Loss of consciousness: the patient experienced loss of consciousness, Motor activity: generalized, Incontinence: none, Apnea: the patient did not experience apnea, Circulation: the patient did not experience evidence of pulse disturbance. Seizure onset: the onset is not known. Context: the seizure(s) was witnessed, by co-worker(s). Seizure Hx: recent, poorly controlled. Associated injury: Left upper extremity: decreased range of motion, dislocated 2 month ago. Historical: - Allergies: 14:26 NKDA; jl7 - Home Meds: 14:26 acetic acid topical [Active]; amlodipine 10 mg tab 1 tab once daily [Active]; aspirin jl7 81 mg Oral chew 1 tab once daily [Active]; Aspirin Oral [Active]; atorvastatin 80 mg Oral tab 1 tab once daily [Active]; Centrum Oral [Active]; clopidogrel 75 mg Oral tab 1 tab once daily [Active]; gabapentin 100 mg Oral cap 2 caps 3 times per day [Active]; ibuprofen 200 mg Oral tab 2 tabs every 4-6 hours [Active]; lisinopril 10 mg Oral tab 1 tab once daily [Active]; Metoprolol Tartrate Oral [Active]; naproxen sodium 220 mg Oral cap [Active]; unknown seizure med [Active]; VITAMIN B1 100 MG DAILY [Active]; Santyl 250 unit/gram Topical oint once daily [Active]; - PMHx: 14:26 ADD/ADHD; CHF; COPD; CVA; Diabetes - NIDDM; Myocardial infarction; PVD; Seizures; skin jl7 cancer; - Immunization history:: Adult Immunizations unknown. - Social history:: Smoking status: Patient reports the use of cigarette tobacco products, smokes one pack cigarettes per day. - Family history:: not pertinent. ROS: 15:03 Constitutional: Negative for fever, chills, and weight loss, Eyes: Negative for injury, riya pain, redness, and discharge, ENT: Negative for injury, pain, and discharge, Neck: Negative for injury, pain, and swelling, Cardiovascular: Negative for chest pain, palpitations, and edema, Respiratory: Negative for shortness of breath, cough, wheezing, and pleuritic chest pain, Abdomen/GI: Negative for abdominal pain, nausea, vomiting, diarrhea, and constipation, Back: Negative for injury and pain, : Negative for injury, bleeding, discharge, and swelling, Skin: Negative for injury, rash, and discoloration, Psych: Negative for depression, anxiety, suicide ideation, homicidal ideation, and hallucinations, Allergy/Immunology: Negative for hives, rash, and allergies, Endocrine: Negative for neck swelling, polydipsia, polyuria, polyphagia, and marked weight changes, Hematologic/Lymphatic: Negative for swollen nodes, abnormal bleeding, and unusual bruising. 15:03 Respiratory: Positive for cough. 15:03 MS/extremity: Positive for decreased range of motion, deformity, pain, of the anterior aspect of left shoulder and posterior aspect of left shoulder. 15:03 Neuro: Positive for seizure activity, service captain, at baseline now. Exam: 15:03 Constitutional: This is a well developed, well nourished patient who is awake, alert, riya and in no acute distress. Head/Face: Normocephalic, atraumatic. Eyes: Pupils equal round and reactive to light, extra-ocular motions intact. Lids and lashes normal. Conjunctiva and sclera are non-icteric and not injected. Cornea within normal limits. Periorbital areas with no swelling, redness, or edema. ENT: Nares patent. No nasal discharge, no septal abnormalities noted. Tympanic membranes are normal and external auditory canals are clear. Oropharynx with no redness, swelling, or masses, exudates, or evidence of obstruction, uvula midline. Mucous membranes moist. Neck: Trachea midline, no thyromegaly or masses palpated, and no cervical lymphadenopathy. Supple, full range of motion without nuchal rigidity, or vertebral point tenderness. No Meningismus. Chest/axilla: Normal chest wall appearance and motion. Nontender with no deformity. No lesions are appreciated. Cardiovascular: Regular rate and rhythm with a normal S1 and S2. No gallops, murmurs, or rubs. Normal PMI, no JVD. No pulse deficits. Abdomen/GI: Soft, non-tender, with normal bowel sounds. No distension or tympany. No guarding or rebound. No evidence of tenderness throughout. Back: No spinal tenderness. No costovertebral tenderness. Full range of motion. Male : Normal genitalia with no discharge or lesions. Skin: Warm, dry with normal turgor. Normal color with no rashes, no lesions, and no evidence of cellulitis. Neuro: Awake and alert, GCS 15, oriented to person, place, time, and situation. Cranial nerves II-XII grossly intact. Motor strength 5/5 in all extremities. Sensory grossly intact. Cerebellar exam normal. Normal gait. Psych: Awake, alert, with orientation to person, place and time. Behavior, mood, and affect are within normal limits. 15:03 Respiratory: the patient does not display signs of respiratory distress, Respirations: normal, Breath sounds: decreased breath sounds, wheezing: inspiratory expiratory 15:03 Musculoskeletal/extremity: Extremities: noted in the anterior aspect of left shoulder and posterior aspect of left shoulder: decreased ROM, deformity, dislocated 8/6... sent to [facility], never could stay reduced. 15:03 Neuro: Orientation: is normal, appropriate for stated age, no acute changes, Mentation: is normal, appropriate for stated age, no acute changes, Memory: is normal, appropriate for stated age, no acute changes, Cranial nerves: grossly normal, is grossly normal based on the patient's age, no acute changes, Cerebellar function: is grossly normal based on the patient's age, no acute changes, Motor: moves all fours, Sensation: is normal, no obvious gross deficits, appropriate no acute changes, Gait: not tested. seizure activity, grand mal type is displayed, occurred in the er , tonic clonic, resolved ativan 2 mg sivp x1, 1 gm fosphenotoyn. 15:19 ECG was reviewed by the Attending Physician. riya Vital Signs: 14:15 BP 155 / 82; Pulse 98; Resp 18 S; Temp 99.3(O); Pulse Ox 93% on R/A; jl7 15:01 BP 145 / 75; Pulse 96; Resp 21; Pulse Ox 95% on R/A; rb1 17:00 BP 136 / 81; Pulse 86; Resp 20; Pulse Ox 94% on R/A; rb1 18:00 BP 130 / 85; Pulse 75; Resp 15; Pulse Ox 100% ; jl7 MDM: 14:17 Patient medically screened. riya 15:10 Differential Diagnosis: alcohol intoxication, hypoglycemia, intracranial bleed, riya overdose, TIA, volume depletion, cardiac arrhythmia, seizure. Data reviewed: vital signs, nurses notes, lab test result(s), EKG, radiologic studies, CT scan, plain films. Data interpreted: patient monitor: rate is 98 beats/min, rhythm is regular, Pulse oximetry: is not applicable for this patient encounter. Test interpretation: by ED physician or midlevel provider: ECG, plain radiologic studies. Counseling: I had a detailed discussion with the patient and/or guardian regarding: the historical points, exam findings, and any diagnostic results supporting the discharge/admit diagnosis, lab results, radiology results. 17:35 ED course: attempt made to reduce left shoulder out since 12/31, no able to do, would not riya reduce. 02/28 15:01 Order name: Basic Metabolic Panel riya 02/28 15:01 Order name: CBC with Diff riya 02/28 15:01 Order name: LFT's riya 02/28 15: Order name: Magnesium; Complete Time: 16:06 riya 02/28 15:01 Order name: NT PRO-BNP; Complete Time: 16:06 riya 02/28 15:01 Order name: Troponin (emerg Dept Use Only); Complete Time: 16:06 riya 02/28 15: Order name: Acetaminophen; Complete Time: 16:06 riya 02/28 15:01 Order name: ETOH Level; Complete Time: 16:06 riya 02/28 15:01 Order name: PT-INR; Complete Time: 16:06 riya 02/28 15:01 Order name: Ptt, Activated; Complete Time: 16:06 riya 02/28 15:01 Order name: Salicylate; Complete Time: 16:06 riya 02/28 15:01 Order name: Urine Drug Screen; Complete Time: 16:06 riya 02/28 15:01 Order name: Basic Metabolic Panel; Complete Time: 16:06 EDMS 02/28 15:01 Order name: CBC with Automated Diff; Complete Time: 15:19 EDMS 02/28 15:01 Order name: Shoulder Left (2 View) XRAY; Complete Time: 16:58 [facility] 02/28 15:01 Order name: XRAY Chest (1 view); Complete Time: 16:58 [facility] 02/28 15:01 Order name: EKG; Complete Time: 15:01 [facility] 02/28 15:01 Order name: Cardiac monitoring; Complete Time: 15:27 [facility] 02/28 15:01 Order name: EKG - Nurse/Tech; Complete Time: 15:27 [facility] 02/28 15:01 Order name: IV Saline Lock; Complete Time: 15:26 [facility] 02/28 15:01 Order name: Labs collected and sent; Complete Time: 15:26 [facility] 02/28 15:01 Order name: CT Head C Spine; Complete Time: 16:06 [facility] 02/28 15:01 Order name: Liver (Hepatic) Function; Complete Time: 16:06 EDMS 02/28 15:19 Order name: Urine Dipstick--Ancillary (enter results); Complete Time: 16:06 02/28 16:46 Order name: Chem 7; Complete Time: 17:29 [facility] 02/28 15:01 Order name: O2 Per Protocol; Complete Time: 15:26 [facility] 02/28 15:01 Order name: O2 Sat Monitoring; Complete Time: 15:26 [facility] 02/28 15:01 Order name: Urine Dipstick-Ancillary (obtain specimen); Complete Time: 15:31 [facility] 02/28 15:01 Order name: Seizure Precautions; Complete Time: 15:08 [facility] EC:19 Rate is 96 beats/min. Rhythm is regular. QRS [place] is Normal. [place] interval is normal. QRS riya interval is normal. QT interval is normal. No Q waves. T waves are Normal. No ST changes noted. Clinical impression: Normal ECG and No evidence of ischemia. Interpreted by me. Reviewed by me. Administered Medications: 14:52 Drug: Ativan 2 mg Route: IVP; Site: right jugular; jd3 14:55 Follow up: Response: No adverse reaction; Marked relief of symptoms jl7 15:10 Drug: Fosphenytoin 1 grams Route: IVPB; Site: right jugular; jl7 15:25 Follow up: Response: No adverse reaction; IV Status: Completed infusion jl7 15:33 Not Given (Duplicate Order): Fosphenytoin 1 grams IVPB once; (mix in 50 to 100mL NS) 18:06 Drug: Dilantin 300 mg Route: PO; 18:07 Follow up: Response: No adverse reaction 18:07 Not Given (Other Intervention Used): Ativan 2 mg IVP once jl7 Disposition: 02/29/20 17:34 Discharged to Home. Impression: Epilepsy and recurrent seizures, Unspecified kidney failure - chronic, Recurrent dislocation, left shoulder - chronic. - Condition is Stable. - Discharge Instructions: Shoulder Dislocation, Seizure, Adult, Seizure, Adult, [id number], Chronic Kidney Disease, Adult, [id number], Shoulder Dislocation, [id number]. - Prescriptions for Dilantin Kapseal 100 mg Oral Capsule - take 1 capsule by ORAL route every 8 hours; 30 capsule. - Medication Reconciliation Form, Thank You Letter, Antibiotic Education, Prescription Opioid Use form. - Follow up: Private Physician; When: 2 - 3 days; Reason: Recheck today's complaints, Continuance of care, Re-evaluation by your physician. Follow up: Harish Ramos MD; When: 2 - 3 days; Reason: Recheck today's complaints, Re-evaluation by your physician. Follow up: Anibal Escobar MD; When: 2 - 3 days; Reason: Recheck today's complaints, Re-evaluation by your physician. - Problem is new. - Symptoms have improved. Signatures: Dispatcher [employer] EDMS Aaron Pichardo MD MD cha Calderon, Audri RN RN aa5 Davy Garza RN RN jl7 Gordy Dyer RN RN jd3 Corrections: (The following items were deleted from the chart) 17:35 17:34 02/29/2020 17:34 Discharged to Home. Impression: Epilepsy and recurrent seizures; riya Unspecified kidney failure - chronic. Condition is Stable. Forms are Medication Reconciliation Form, Thank You Letter, Antibiotic Education, Prescription Opioid Use. Follow up: Private Physician; When: 2 - 3 days; Reason: Recheck today's complaints, Continuance of care, Re-evaluation by your physician. Follow up: Harish Ramos; When: 2 - 3 days; Reason: Recheck today's complaints, Re-evaluation by your physician. Follow up: Anibal Escobar; When: 2 - 3 days; Reason: Recheck today's complaints, Re-evaluation by your physician. Problem is new. Symptoms have improved. [facility] 18:06 17:30 Sling ordered. [facility] jl7 18:23 17:35 02/29/2020 17:34 Discharged to Home. Impression: Epilepsy and recurrent seizures; jl7 Unspecified kidney failure - chronic; Recurrent dislocation, left shoulder - chronic. Condition is Stable. Discharge Instructions: Shoulder Dislocation, Seizure, Adult, Seizure, Adult, [id number], Chronic Kidney Disease, Adult, Odwi-wi-Vdeo, Shoulder Dislocation, [id number]. Prescriptions for Dilantin Kapseal 100 mg Oral Capsule - take 1 capsule by ORAL route every 8 hours; 30 capsule. and Forms are Medication Reconciliation Form, Thank You Letter, Antibiotic Education, Prescription Opioid Use. Follow up: Private Physician; When: 2 - 3 days; Reason: Recheck today's complaints, Continuance of care, Re-evaluation by your physician. Follow up: Harish Ramos; When: 2 - 3 days; Reason: Recheck today's complaints, Re-evaluation by your physician. Follow up: Anibal Escobar; When: 2 - 3 days; Reason: Recheck today's complaints, Re-evaluation by your physician. Problem is new. Symptoms have improved. [facility]
[2020-02-29] MEDS ORDERED: PHENYTOIN ER 100 MG CAP PO ONE (18:03)
[2020-02-29 18:34] VITALS: TEMP 99.3
[2020-02-29 18:38] VITALS: BP 130/85; O2SAT 100
--- OUTSIDE RECORDS SUMMARY | 2020-03-04 01:08 | XMS REPORT | Clinical Summary ---
:1965 [facility] Organization [facility] [place] [facility] Address [address] [place] [address] Care Team Providers Name Role Phone Unavailable [...] 100 MG Take 1 tablet 30 tablet 10/14/2018 0 tablet (100 mg total) by mouth daily. levETIRAcetam Take 1 tablet 60 tablet 10/14/2018 10/14/2019 (KEPPRA) 1000 MG (1,000 mg total) tablet by mouth 2 (two) times daily. acetaminophen-codeine Take 1 tablet by 12 tablet 0 01/02/2020 01/06/2020 (TYLENOL #3) 300-30 mouth every 6 mg per tablet (six) hours as needed for Pain for up to 4 days. Max Daily Amount: 4 tablets Active Problems Problem Noted Date Seizures 10/13/2018 Metabolic acidosis 04/20/2017 H/O ETOH abuse 04/17/2017 Acute kidney injury 04/17/2017 Hypertension, essential 04/17/2017 Leukocytosis 04/17/2017 Tongue laceration 04/17/2017 Status epilepticus 04/16/2017 Encounters Date Type Specialty Care Team Description 01/02/2020 Emergency Emergency Medicine [place] Ant erior dislocation of left shoulder, initial encounter (Primary Dx); Acute pain of l eft shoulder 01/02/2020 Travel after 03/03/2019 Social History Tobacco Use Types Packs/Day Years [...] Vital Sign Reading Time Taken Blood Pressure 147/79 01/02/2020 2:29 PM CDT Pulse 91 01/02/2020 2:29 PM CDT Temperature 36.5 C (97.7 F) 01/02/2020 6:34 AM CDT Respiratory Rate 18 01/02/2020 2:29 PM CDT Oxygen Saturation 95% 01/02/2020 2:29 PM CDT Inhaled Oxygen Concentration - - Weight 85.3 kg (188 lb) 01/02/2020 6:36 AM CDT Height - - Body Mass Index 24.8 01/02/2020 6:36 AM CDT Plan of Treatment Not on file Procedures Procedure Name Priority Date/Time Associated Comments Diagnosis CT UPPER EXTREMITY STAT 01/02/2020 2:15 Resul ts for this WITHOUT IV CONTRAST PM CDT procedur e are in LEFT the results section. XR SHOULDER LEFT STAT 01/02/2020 9:56 Results for this COMPLETE MIN 2 VIEWS AM CDT procedu re are in the results section. PT/APTT STAT 01/02/2020 8:49 Results for this AM CDT procedure are i n the results section. SARS-COV2/RT-PCR ([facility] STAT 01/02/2020 8:22 R esults for this & REF LABS) AM CDT procedure are i n the results section. CBC W/PLT COUNT & AUTO STAT 01/02/2020 8:18 R esults for this DIFFERENTIAL AM CDT procedure are i n the results section. COMPREHENSIVE STAT 01/02/2020 8:18 Results fo r this METABOLIC PANEL AM CDT procedure ar e in the results section. CBC W/PLT COUNT & AUTO STAT 01/02/2020 8:18 R esults for this DIFFERENTIAL AM CDT procedure are i n the results section. XR SHOULDER LEFT STAT 01/02/2020 7:18 Results for this COMPLETE MIN 2 VIEWS AM CDT procedu re are in the results section. PROCEDURAL SEDATION Routine 01/02/2020 7:10 Resu lts for this AM CDT procedure are i n the results section. after 03/03/[address] upper extremity without contrast left (01/02/2020 2:15 PM CDT) Specimen Narrative Performed At FINAL REPORT [employer] CT of the left shoulder without contrast History: left shoulder dislocation Comparisons: Radiograph dated January 02, 2020 Technique: CT of the left shoulder was p erformed without contrast. Axial images were generated as were mult iplanar reformatted images in the coronal and sagittal planes. This exam was performed according to our departmental dose optimization program which includes auto mated exposure control, adjustment of the mA and/or kV according to patient's size and/or use of iterative reconstructive technique. Findings: There is anterior inferior dislocation o f the left shoulder. Slight flattening of the posterolateral left hu meral head may reflect a Hill-Sachs deformity, although acuity is uncertain, and fibrocystic changes are seen in this location. There are a few tiny ossific densities inferior to the humeral head, probably reflecting avulsion fracture fragment, although the donor si te is not clearly identified. No definite glenoid fracture is seen. 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 A sclerotic focus in the humeral head is most likely a bone islan d. There is soft tissue edema around the sh oulder. A small joint effusion is suspected. Partially imaged left hemithorax is unremarkable. IMPRESSION: Anterior left shoulder dislocation. Slight flattening of the posterolateral humeral head may reflect a Hill-Sachs deformity, although acuity is uncertain. There are a few tiny ossific densities i nferior to the humeral head, which may reflect avulsion fracture frag ments, from unclear donor sites. Signed: Delisa Bustillo MD Report Verified Date/Time:01/02/2020 15:45:14 Reading Location: [facility] Radiology Reading Room Procedure Note Interface, External Ris In - 01/02/2020 3:47 PM CDT FINAL REPORT CT of the left shoulder without contrast History: left shoulder dislocation Comparisons: Radiograph dated January 02, 2020 Technique: CT of the left shoulder was p erformed without contrast. Axial images were generated as were mult iplanar reformatted images in the coronal and sagittal planes. This exam was performed according to our departmental dose optimization program which includes auto mated exposure control, adjustment of the mA and/or kV according to patient's size and/or use of iterative reconstructive technique. Findings: There is anterior inferior dislocation o f the left shoulder. Slight flattening of the posterolateral left hu meral head may reflect a Hill-Sachs deformity, although acuity is uncertain, and fibrocystic changes are seen in this location. There are a few tiny ossific densities inferior to the humeral head, probably reflecting avulsion fracture fragment, although the donor si te is not clearly identified. No definite glenoid fracture is seen. 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 A sclerotic focus in the humeral head is most likely a bone islan d. There is soft tissue edema around the sh oulder. A small joint effusion is suspected. Partially imaged left hemithorax is unremarkable. IMPRESSION: Anterior left shoulder dislocation. Slight flattening of the posterolateral humeral head may reflect a Hill-Sachs deformity, although acuity is uncertain. There are a few tiny ossific densities i nferior to the humeral head, which may reflect avulsion fracture frag ments, from unclear donor sites. Signed: Delisa Bustillo MD Report Verified Date/Time: 01/02/2020 1 5:45:14 Reading Location: [facility] Radiology Reading Room Performing Organization Address City/State/Zipcode Phone Number [employer] XR shoulder complete 2 views min left (01/02/2020 9:56 AM CDT)Only the most recent of2 resultswithin the time period is included. Specimen Narrative Performed At FINAL REPORT [employer] RAD, SHOULDER, COMPLETE (MIN 2 VIEWS), L EFT INDICATION: ARM INJURY COMPARISON: 2 hours prior TECHNIQUE: Single frontal view of the le ft shoulder. IMPRESSION: Redemonstration of chronic changes in th e anteriorly displaced humeral head. Glenoid rim appears preser sanna. Acromioclavicular joint remains intact. Signed: JR Moreira Robert MD Report Verified Date/Time:01/02/2020 10:34:05 Reading Location: [facility] Reading Room Procedure Note Interface, External Ris In - 01/02/2020 10:36 AM CDT FINAL REPORT RAD, SHOULDER, COMPLETE (MIN 2 VIEWS), L EFT INDICATION: ARM INJURY COMPARISON: 2 hours prior TECHNIQUE: Single frontal view of the le ft shoulder. IMPRESSION: Redemonstration of chronic changes in th e anteriorly displaced humeral head. Glenoid rim appears preser sanna. Acromioclavicular joint remains intact. Signed: JR Moreira Robert MD Report Verified Date/Time: 01/02/2020 1 0:34:05 Reading Location: [facility] Reading Room Performing Organization Address City/State/Zipcode Phone Number [facility] PT/aPTT (01/02/2020 8:49 AM CDT) Protime 13.4 11.9 - 14.2 seconds [facility] INR 1.1 <=5.9 [facility] PTT 30.8 22.5 - 36.0 seconds [facility] Specimen Blood Narrative Performed At Effective 10/23/2018: PT Reference Range [facility] Change New: 11.9-14.2Previous: 11.7-14.7 RECOMMENDED COUMADIN/WARFARIN INR THERAPY RANGES STANDARD DOSE: 2.0-3.0Includes: PROPHYLAXIS for venous thrombosis, systemic embolization; TREATMENT for venous thrombosis and/or pulmonary embolus. HIGH RISK: Target INR is 2.5-3.5 for patients wiht mechanical heart valves. Performing Organization Address City/State/Zipcode Phone Number [facility] [address] [place] [address] CENTER SARS-CoV2/RT-PCR (Asymptomatic ONLY) (01/02/2020 8:22 AM CDT) SARS-COV2/RT-PCR Negative Not Detected, Negative, [facility] See external report for MEDICAL CENTER linked test SARS-COV-2 PERFORMING LAB [facility] [place] [facility] Specimen Other Narrative Performed At Negative result for this test determines that [facility] SARS-CoV-2 RNA was not present in the specimen above the Limit of Detection (LOD).However, Negative results do not preclude SARS-CoV-2 infection and should not be used as the sole basis for treatment or patient management decisions. Negative results must be combined with clinical observations, patient history, and epidemiological information. A false negative result may occur if a specimen is improperly collected, transported or handled.A false negative result should be considered if patient's recent exposures or clinical presentation indicate that COVID-19 (SARS-CoV-2) is likely and diagnostic tests for other causes of illness are negative.Re-testing should be considered in cases of suspected false negatives. The limit of detection for this assay is 800 copies/mL. This SARS CoV-2 test is a real-time RT-PCR test intended for the qualitative detection of nucleic acid from SARS-CoV-2 in a nasopharyngeal swab specimen collected from individuals suspected of COVID-19 by their healthcare provider. This test has not been Food and Drug Administration (FDA) cleared or approved.This is a modified version of an approved Emergency Use Authorization (EUA) and is in the process of review by the FDA. Once authorized by the FDA, the issued EUA will be effective until the declaration that circumstances exist justifying the authorization of the emergency use of in vitro diagnostic tests for detection and/or diagnosis of COVID-19 is terminated under Section 564(b)(2) of the Act or the EUA is revoked under Section 564(g) of the Act. Fact Sheet for Healthcare Providers: https://www.[employer]ipin.CartCrunch/sites/default/files/pro duct/documents/Fact_Sheet_HC_Providers_Lyra_SA RS-CoV-2.pdf Fact Sheet for Healthcare Patients: https://www.Xipin.CartCrunch/sites/default/files/pro duct/documents/Fact_Sheet_Patients_Lyra_SARS-C oV-2.pdf Performing Laboratory: [address] [place] [address] Performing Organization Address City/State/Zipcode Phone Number [address] [address] CENTER CBC with platelet count + automated diff (01/02/2020 8:18 AM CDT) WBC 7.5 3.5 - 10.5 K/L [facility] RBC 4.74 4.63 - 6.08 M/L [facility] Hemoglobin 14.5 13.7 - 17.5 GM/DL [facility] Hematocrit 42.6 40.1 - 51.0 % [facility] MCV 89.9 79.0 - 92.2 fL [facility] MCH 30.6 25.7 - 32.[address] [facility] MCHC 34.0 32.3 - 36.5 GM/DL [facility] RDW 16.3 (H) 11.6 - 14.4 % [facility] Platelets 218 150 - 450 K/CU MM [facility] MPV 8.8 (L) 9.4 - 12.[address] [facility] nRBC 0 0 - 0 /[address] [facility] % Neutros 73 % [facility] % Lymphs 18 % [facility] % Monos 6 % [facility] % Eos 3 % [facility] % Baso 1 % [facility] # Neutros 5.49 (H) 1.78 - 5.38 K/L [facility] # Lymphs 1.32 1.32 - 3.57 K/L [facility] # Monos 0.41 0.30 - 0.82 K/L [facility] # Eos 0.19 0.04 - 0.54 K/L [facility] # Baso 0.06 0.01 - 0.08 K/L [facility] Immature Granulocytes-Relative 1 0 - 1 % C [facility] Specimen Blood Performing Organization Address City/State/Zipcode Phone Number [facility] [address] [place] [address] CENTER Comprehensive metabolic panel (01/02/2020 8:18 AM CDT) Protein, Total 8.0Comment: Specimen 6.0 - 8.3 gm/dL [facility] slightly hemolyzed [facility] Albumin 4.2Comment: Specimen 3.5 - 5.0 g/dL [facility] slightly hemolyzed [facility] Alkaline Phosphatase 78 40 - 150 U/L [facility] Total Bilirubin 0.4Comment: Specimen 0.2 - 1.2 mg/dL [facility] slightly hemolyzed [facility] Sodium 134 (L) 136 - 145 meq/L [facility] Potassium 3.5Comment: Specimen 3.5 - 5.1 meq/L [facility] slightly hemolyzed [facility] Chloride 100 98 - 107 meq/L [facility] CO2 21 (L) 22 - 29 meq/L [facility] AL[facility] BUN 10 7 - 21 mg/dL [facility] AL[facility] Creatinine 0.83Comment: Specimen 0.57 - 1.25 mg/dL [facility] slightly hemolyzed [facility] Glucose 74 70 - 105 mg/dL [facility] HE ALTH [facility] Calcium 9.3 8.4 - 10.2 mg/dL [facility] AST 25Comment: Specimen 5 - 34 U/L [facility] slightly hemolyzed [facility] ALT 16Comment: Specimen 6 - 55 U/L [facility] slightly hemolyzed [facility] EGFR 96Comment: ESTIMATED GFR mL/min/1.73 sq m [facility] IS NOT ACCURATE [facility] CREATININE CLEARANCE IN PREDICTING GLOMERULAR FILTRATION RATE. ESTIMATED GFR IS NOT APPLICABLE FOR DIALYSIS PATIENTS. Specimen Blood Narrative Performed At Quality Rn ID - [facility] Performing Organization Address City/State/Zipcode Phone Number [facility] [address] [place] [address] CENTER Procedural sedation (01/02/2020 7:10 AM CDT) Narrative Performed At [place] MD 01/22/2020 10:38 PM Procedural sedation Date/Time: 01/02/2020 8:00 AM Performed by: Rio Freitas MD Authorized by: [place] [facility] MD Consent: Consent obtained:Written See paper consent form. Indications: Procedure performed:Dislocation reduction Procedure necessitating sedation performed by: Physician performing sedation Pre-sedation assessment: Clinician revie wed the following: allergies, anesthesia history, family history, olivia ent summary, pertinent labs, problem list, family history of anesthet ic complications and social history reviewed ASA classification: class 1 - normal , healthy patient Neck mobility: normal Mouth openin or more finger w idths Mallampati score:I - soft palate , uvula, fauces, pillars visible History of difficult intubation: no Pre-sedation assessment completed: 01/02/2020 7:40 AM Immediate pre-procedure details: Reassessment: Patient reassessed imm ediately prior to procedure Procedure details (see MAR for exact dos ages): Sedation level: moderate (conscious) sedation, Sedation start time:01/02/2020 8:0 0 AM Preoxygenation:Nasal cannula Sedation:Propofol and ketamine Intra-procedure monitoring:secured entrance monitor, bl ood pressure monitoring, continuous capnometry and continuous pul se oximetry Intra-procedure events: none Sedation end time:01/02/2020 10:05 AM Post Sedation Evaluation: Respiration: a [employer]way patent The following have been reviewed and fou nd to be within acceptable parameters: RR, HR, BP and pulse ox Pain Scale: 5/10 Nausea/Vomiting: no Hydration status: wnl Temperature within expected parameters :Temperature wi thin defined limits @SLHSEDMULTIPLEVITALS@ after 03/03/2019 Insurance Payer Benefit Plan / Subscriber ID Type Phone Address Group [employer] - A[employer] MEDICARE xxxxxxxx [facility] Contracted [phone] [address] MEDICARE MGD HMO POS 204171 [place] [address] CDC REVIEW CDC REVIEW xxxxxxxx [place] [address] ([place] [address]
--- OUTSIDE RECORDS SUMMARY | 2020-03-04 01:14 | XMS REPORT | Continuity of Care Document ---
:1965 Author Organization [facility] Care Team Providers Name Role Phone [facility] Unavailable Un available Problems Problem Status Onset Classification Date Comments Sourc e Date Reported ANEMIA Active 04/04/20 The 16 [place] Discharge 03/14/20 03/17/2016 The Diagnosis: Acute 16 [place] on chronic renal failure Discharge 03/14/20 03/17/2016 The Diagnosis: Anemia 16 [place] Discharge 03/14/20 03/17/2016 The Diagnosis: 16 [place] Post-operative pain Discharge 03/14/20 03/17/2016 The Diagnosis: Acute 16 [place] hypokalemia OTHER Active 03/13/20 The 16 [place] LEFT FOOT SORES Active 01/31/20 T he 16 [place] FOOT GANGRENE Active 01/31/20 The 16 [place] Discharge 02/17/20 02/19/2015 The Diagnosis: 15 [place] Hyperlipidemia Discharge 02/17/20 02/19/2015 The Diagnosis: 15 [place] Hypertension Discharge 02/17/20 02/19/2015 The Diagnosis: Angina 15 [place] pectoris CHEST PAIN Active 02/16/20 The 15 [place] CP Active 02/16/20 The 15 [place] Discharge 02/10/20 02/12/2015 The Diagnosis: Wrist 15 [place] sprain LEFT WRIST PAIN Active 02/10/20 T he 15 [place] Discharge 01/24/20 01/26/2015 The Diagnosis: 15 [place] Epileptic seizure, generalized Discharge 01/24/20 01/26/2015 The Diagnosis: 15 [place] Cerebral seizure AMS Active 01/24/20 The 15 [place] WOUND INFECTION V Active 10/21/19 The NECFAS;CHRONIC 14 [place] OSTEOMY Acute Active Problem 04/08/2016 The osteomyelitis [place] (disorder) Congestive heart Active Problem 04/08/2016 The failure [place] (disorder) 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/08/2016 The disorder, [place]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 (disorder) Bronchitis Active Problem 04/08/2016 The (disorder) [place] Chronic Active Problem 04/08/2016 The obstructive lung [place] disease (disorder) Epistaxis Active Problem 04/08/2016 The (disorder) [place] Seizure (finding) Active Problem 04/08/2016 [facility] [place] History of - Active Problem 04/08/2016 The infectious [place] disease (context-dependen t category) History of Active Problem 04/08/2016 The amputation of [place] lesser toe (situation) History of - Active Problem 04/08/2016 The cardiovascular [place] [facility] disease (context-dependen t category) Benign prostatic Active Problem 04/08/2016 The hyperplasia [place] (disorder) CELLULITIS OF Active The FOOT [place] AC Active The OSTEOMYELITIS-UNS [facility] PEC CHEST PAIN NOS Active Th e [place] GANGRENE, NOT Active The ELSEWHERE [place] CLASSIFIED ANEMIA, Active The UNSPECIFIED [place] Medications Medication Details Route Status Patient Ordering Order Source Instructions Provider Date Sodium Chloride IVPB, 150 Active The 0.9% IV ml/hr, PRN, 2015 [place] Start date: 04/05/16 8:00:00 [employer] SCHEDULER, Duration: 30, 1,000 ml EPINEPHrine Notes: Active The MEDICATION 2015 [place] WASTE Product Size: 1 mg Product Wasted: ___ mg Solu-CORTEF Notes: (Same Active The as: [address] [place] [address] Solu-CORTEF) Benadryl Notes: (Same Active The as: Benadryl) 2015 [place] Sodium Chloride IV, 0 ml/hr, Active The 0.9% IV PRN, PRN Blood 2015 [place] Transfusion, Start date: 04/05/16 7:21:00 [employer] SCHEDULER, Duration: 30, 250 ml heparin flush Notes: (Same Active Th e as: Heparin 2015 [place] Lock Flush) BD Normal Saline Notes: (Same Active The Flush as: BD 2015 [place] Posiflush) Benadryl Notes: (Same Active The as: Benadryl) 2015 [place] Tylenol Notes: Do not Active The exceed 4 [place] gm/day. (Same as: Tylenol) Acetaminophen 325 Notes: (Same Inactive The MG / Hydrocodone as: [place] 2015 and Bitartrate 5 MG 325/5) Do not Oral Tablet [[place] exceed 4gm/day 5/325] of acetaminophen. Acetaminophen 300 1 tab, PO, No Longer 03/14/ H The MG / Codeine Q4H, PRN Pain, Active 2015 [facility] Phosphate 30 MG X 2 day, # 12 Oral Tablet tab, 0 [Tylenol with Refill(s) Codeine #3] Zofran Notes: (Same No Longer The as: Zofran) Active 2015 MEDICATION WASTE Product Size: 4 mg Product Wasted: ___ mg Dilaudid Notes: Same No Longer The as: Dilaudid Active 2015 Sodium Chloride 500 mL, 500 No Longer The 0.154 MEQ/ML ml/hr, Infuse Active 2015 [facility] Injectable Over: 1 hr, Solution Route: IV, [...] Inactive The Hydrochloride 5 MG as: 2015 [facility] ands Oral Tablet Roxicodone) Ceftriaxone Notes: (Same No Longer Th e As: Rocephin). Active 2015 [place] Use with 100 mL NS and infuse over 30 min MEDICATION WASTE Product Size: 2000 mg Product Wasted: ___ mg Albuterol 0.83 NEB, PRN, PRN Active The MG/ML Inhalant Respiratory 2015 [employer] and[employer] Solution Protocol, 0 Refill(s) chlorhexidine 1 appl, BATHE, Active The gluconate 40 MG/ML Q-M-W-F, 0 2015 [facility] Medicated Liquid Refill(s) Soap tamsulosin 0.4 mg 0.4 mg = 1 Active The oral capsule cap, PO, After 2015 [facility] Dinner, 0 Refill(s) fluconazole 100 mg 200 mg = 2 Active The oral tablet tab, PO, 2015 [place] [id number], 0 Refill(s) pantoprazole 40 mg 40 mg = 1 tab, Active The oral enteric PO, Before 2015 [place] coated tablet Breakfast, 0 Refill(s) Acetaminophen 325 1 tab, PO, Active The MG / Hydrocodone Q4H, PRN Pain [address] [facility] [facility] Bitartrate 5 MG Score 1-3, 0 Oral Tablet Refill(s) cefTRIAXone + Notes: (Same No Longer The sodium chloride As: Rocephin). [facility] [address] [facility] 0.9% INJ 100 mL Use with 100 mL NS and infuse over 30 min MEDICATION WASTE Product Size: 2000 mg Product Wasted: ___ mg Flomax Notes: (Same No Longer The As: Flomax) Active 2015 [place] "Do Not Crush" vancomycin + 2001 mg: No Longer The sodium chloride infuse over Active 2015 [facility] 0.9% INJ 250 mL 2.5 hours MEDICATION WASTE Product Size: 1000 mg Product Wasted: ___ mg Fluconazole Notes: (Same No Longer Th e as: Diflucan) Active 2015 [place] Dilaudid Notes: Same No Longer The as: Dilaudid Active 2015 [place] gabapentin Notes: (Same No Longer The as: Neurontin) Active 2015 [place] Naloxone Notes: Same as Inactive The Narcan [place] Lorazepam Notes: (Same Inactive The as: Ativan) 2015[place] Ondansetron 4 mg, Route: Inactive The IVP, ONCE, 2015 [place] Dosing Weight 96.023, kg, PRN Nausea & Vomiting, Start date: 02/12/16 9:59:00 CDT Glycopyrrolate Notes: (Same Inactive The as: Robinul) 2015 [place] Flumazenil Notes: (Same Inactive The as: Romazicon) 2015 [place] Fentanyl Notes: (Same Inactive The as: Sublimaze) 2015 [place] Preservative free. Hydralazine Notes: (Same Inactive The as: 2015 [place] Apresoline) Push over 5 minutes Hydromorphone Notes: Same Inactive Th e as: Dilaudid 2015 [place] Labetalol 10 mg, 2 mL, Inactive The Route: IVP, 2015 [place] Drug form: INJ, Q5Min, Dosing Weight 96.023, kg, PRN Elevated BP, Start date: 02/12/16 9:59:00 CDT, Duration: 5 doses or times, Stop date: Limited # of times fentaNYL (ANES) Route: IV, Inactive T he Drug form: 2015 [place] INJ, ONCE, Stop date: 02/12/16 8:40:00 CDT propofol (ANES) Route: IV, Inactive T he Drug form: 2015 [place] INJ, ONCE, Stop date: 02/12/16 8:40:00 CDT lidocaine (ANES) Route: IV, Inactive The Drug form: 2015 [place] INJ, ONCE, Stop date: 02/12/16 8:40:00 CDT LR 1000 mL INJ Route: IV, Inactive Th e (ANES) Total Volume: 2015 [place] 1,000, Start date: 02/12/16 7:55:00 CDT, Stop date: 02/12/16 8:55:00 CDT Ceftriaxone Notes: (Same No Longer Th e As: Rocephin). Active 2015 [place] Use with 100 mL NS and infuse over 30 min MEDICATION WASTE Product Size: 2000 mg Product Wasted: ___ mg Dilaudid Notes: Same No Longer The as: Dilaudid Active 2015 [place] vancomycin 2001 mg: No Longer The infuse over Active 2015 [place] 2.5 hours metoprolol Notes: (Same No Longer The as: Toprol XL) Active 2015 [place] May split tab, but do not crush. Alprazolam 1 MG Notes: With No Longer The Oral Tablet food or milk Active 2015 [facility] ds [Xanax] (Same as: Xanax) vancomycin 2001 mg: Inactive The infuse over 2015[place] 2.5 hours Anoro 62.5mcg/25 Anoro No Longer Th e mcg 62.5mcg/25 Active 2015 [place] mcg, 1 puff, Route: INHALATION, RBID, 02/09/16 20:00:00 CDT, Duration: 30 day, Stop date: 03/10/16 8:00:00 CDT ketOROLAC 30 mg/mL 60 mg, Route: Inactive The injectable IVP, Drug 2015 [place] solution form: INJ, ONCE, Dosing Weight 96.023, kg, Start date: 02/09/16 17:40:00 CDT, Duration: 1 doses or times, Stop date: 02/09/16 17:40:00 CDT Vancomycin Dosing Vancomycin No Longer H The per RPh Dosing per Active 2015 [place] RPh, ., Drug form: MISC, Route: MISC, PRN, PRN Other -See Comment, 02/09/16 14:51:00 CDT, Duration: 30 day, Stop date: 03/10/16 14:50:00 CDT Dilaudid Notes: Same No Longer The as: Dilaudid Active 2015 [place] Sodium Chloride 500 mL, 500 Inactive The 0.154 MEQ/ML ml/hr, Infuse 2015 [place] [facility] Injectable Over: 1 hr, Solution Route: IV, 500, Drug form: INJ, ONCE, Priority: STAT, Dosing Weight 96.023 kg, Start date: 02/09/16 12:59:00 CDT, Duration: 1 doses or times, Stop date: 02/09/16 12:59:00 CDT pantoprazole Notes: Tablet No Longer The should not be Active 2015 [place] chewed or crushed. (Same as: Protonix) chlorhexidine Notes: (Same No Longer The gluconate 40 MG/ML As: Hibiclens) Active 2015 [place] Medicated Liquid Soap Simvastatin Notes: (Same No Longer Th e as: Zocor) Active 2015 [place] Cefuroxime 1.5 gm, Route: No Longer T he IVPB, [id number], Active 2015 [place] Dosing Weight 96.023, kg, Start date: 02/08/16 21:00:00 CDT, Duration: 3 doses or times, Stop date: 02/09/16 13:00:00 CDT Neutra-Phos Notes: Same No Longer The as: Phos-Nak Active 2015 [place] Mix 1 packet with 75 mL water or juice. Each packet has 160mg of sodium, 280mg of potassium, and 250mg of phosphorus Non-Formulary Item potassium Notes: (Same No Longer The phosphate + sodium as: K Active 2015 [place] [facility] chloride 0.9% 500 Phosphate.) 1 ml INJ 500 mL mMol phoshate has 1.47 mEq potassium Infuse over 4 hours potassium Notes: (Same No Longer The phosphate + sodium as: K Active 2015 [place] [facility] chloride 0.9% INJ Phosphate.) 1 250 mL mMol phoshate has 1.47 mEq potassium Infuse over 4 hours Magnesium Oxide Notes: (Same No Longer H The as: Mag-Ox Active 2015 [place] 400) Magnesium oxide [id number] elemental magnesium Dose=____mg magnesium oxide (___mg elemental magnesium) Magnesium Sulfate Notes: WASTE: No Longer The F/P - Sink; E Active 2015 [place] - [employer] potassium chloride Notes: (Same No Longer The as: Potassium Active 2015 [place] Chloride) sodium phosphate + 15 mmol, 5 [...] The sodium chloride mL, Route: Active 2015 [place] 0.9% 500 ml INJ IVPB, Drug 500 mL form: INJ, PRN, Dosing Weight 96.023, kg, PRN Abnormal Lab Result, Start date: 02/08/16 20:04:00 CDT, Duration: 30 day, Stop date: 03/09/16 20:03:00 CDT, FOR ICU USE ONLY Calcium Carbonate Notes: (Same No Longer The 500 MG Chewable As: Tums) Active 2015 [facility] nds Tablet Calcium Carbonate 500 mg = 200 mg elemental calcium Dose = mg calcium carbonate ( mg elemental calcium) Calcium Gluconate Notes: WASTE: No Longer The F/P - Sink; E Active 2015 [place] - [employer] Albuterol 0.83 Notes: SEE RT No Longer H The MG/ML Inhalant DOCUMENTATION Active 2015 [place] Solution (Same as: Proventil) Dextrose 50% 25 gm, 50 mL, No Longer The Syringe Route: IVP, Active 2015 [place] Drug Form: INJ, Dosing Weight 96.023, kg, PRN, PRN Blood Glucose Results, Start date: 02/08/16 20:04:00 CDT, Duration: 30 day, Stop date: 03/09/16 20:03:00 CDT Docusate Notes: (Same No Longer The as: Colace) Active 2015 [place] (Do Not Crush) Glucagon 1 mg, Route: No Longer The IM, Drug form: Active 2015 [place] PDR/INJ, PRN, Dosing Weight 96.023, kg, PRN Blood Glucose Results, Start date: 02/08/16 20:04:00 CDT, Duration: 30 day, Stop date: 03/09/16 20:03:00 CDT Acetaminophen 325 Notes: (Same No Longer The MG / Hydrocodone as: [place] Active 2015 [facility] sima Bitartrate 5 MG 325/5) Do not Oral Tablet exceed 4gm/day of acetaminophen. Acetaminophen Notes: Do not No Longer The exceed 4 Active 2015 [place] gm/day. (Same as: Tylenol) D5W 1/2NS + KCL Notes: PREMIX No Longer The 20mEq/L 1000ml IV - Do Not Active 2015 [facility] ands (Premix) 1,000 mL Alter WASTE: F/P - Sink; E - [employer] Ondansetron Notes: (Same Inactive The as: Zofran) 2015 [place] MEDICATION WASTE Product Size: 4 mg Product Wasted: ___ mg Promethazine 6.25 mg, 25 Inactive The mL, Route: 2015 [place] IVPB, Drug form: SOLN, ONCE, Dosing Weight 96.023, kg, PRN Nausea & Vomiting, Start date: 02/08/16 9:59:00 CDT Flumazenil Notes: (Same Inactive The as: Romazicon) 2015 [place] Naloxone Notes: Same as Inactive The Narcan 2015 [place] Fentanyl Notes: (Same Inactive The as: Sublimaze) 2015 [place] Preservative free. Hydromorphone Notes: Same Inactive e as: Dilaudid 2015 [place] Labetalol 10 mg, 2 mL, Inactive The Route: IVP, 2015 [place] Drug form: INJ, Q5Min, Dosing Weight 96.023, kg, PRN Elevated BP, Start date: 02/08/16 9:59:00 CDT, Duration: 5 doses or times, Stop date: Limited # of times ondansetron (ANES) Route: IV, Inactive H The Drug form: 2015 [place] INJ, ONCE, Stop date: 02/08/16 9:40:00 CDT hydromorphone Route: IV, Inactive The (ANES) Drug form: 2015 [place] INJ, ONCE, Stop date: 02/08/16 9:15:00 CDT LR 1000 mL INJ Route: IV, Inactive e (ANES) Total Volume: 2015 [place] 1,000, Start date: 02/08/16 9:08:00 CDT, Stop date: 02/08/16 10:08:00 CDT heparin (ANES) Route: IV, Inactive e Drug form: 2015 [place] INJ, ONCE, Stop date: 02/08/16 8:55:00 CDT fentaNYL (ANES) Route: IV, Inactive T he Drug form: 2015 [place] INJ, ONCE, Stop date: 02/08/16 8:40:00 CDT propofol (ANES) Route: IV, Inactive T he Drug form: 2015 [place] INJ, ONCE, Stop date: 02/08/16 8:40:00 CDT lidocaine (ANES) Route: IV, Inactive The Drug form: 2015 [place] INJ, ONCE, Stop date: 02/08/16 8:40:00 CDT midazolam (ANES) Route: IV, Inactive The Drug form: 2015 [place] SOLN, ONCE, Stop date: 02/08/16 8:40:00 CDT rocuronium (ANES) Route: IV, Inactive The Drug form: 2015 [place] INJ, ONCE, Stop date: 02/08/16 8:40:00 CDT piperacillin-tazob IV, ONCE Inactive The actam (ANES) 2015 [place] famotidine (ANES) Route: IV, Inactive The Drug form: 2015 [place] INJ, ONCE, Stop date: 02/08/16 8:25:00 CDT Rifadin IV Notes: No Longer The Child:10-20mg/ Active 2015 kg ,<= 600mg/day. Protect from light (Same as: Rifadin) Lidocaine 5 mg, Route: Inactive The Hydrochloride 10 INTRADERM, [address] [facility] MG/ML Injectable Dosing Weight Solution 98.636, kg, [...] Route: Inactive The PO, Drug form: 2015 [place] TAB, Q4H, Start date: 02/07/16 12:00:00 CDT, Stop date: 03/08/16 8:00:00 CDT Roxicodone Notes: (Same No Longer The as: Active 2015 [place] Roxicodone) oxyCODONE 10 mg 15 mg, Route: Inactive H The extended release PO, Drug form: 2015 [place] ERTAB, Q6H, Start date: 02/05/16 18:00:00 CDT, Duration: 30 day, Stop date: 03/06/16 12:00:00 CDT Roxicodone Notes: (Same No Longer The as: Active 2015 [place] Roxicodone) Dilaudid Notes: Same No Longer The as: Dilaudid Active 2015 [place] sodium chloride 1,000 mL, No Longer T he 0.9% 1000 ml INJ Rate: [address] [facility] nds 1,000 mL ml/hr, Infuse over: 20 hr, Route: IV, Dosing Weight 97.273 kg, Total Volume: 1,000, Start date: 02/04/16 11:14:00 CDT, Stop date: 03/05/16 11:13:00 CDT vancomycin 2001 mg: No Longer The infuse over Active [address] [place] [address] 2.5 hours atorvastatin Notes: (Same No Longer T he as: Lipitor) Active 2015 [place] Vancomycin 1 ea, Route: Inactive The MISC, Dosing 2015 [place] Weight 97.273, kg, ONCALL, Start date: 02/01/16 15:00:00 CDT, Duration: 1 doses or times, Pharmacy to dose Acetaminophen 325 Notes: Do not No Longer The MG / Hydrocodone exceed 4gm/day Active 2015 [place] Bitartrate 10 MG of Oral Tablet [[place] acetaminophen. 10/325] (Same as: [place] 325/10) Tylenol Notes: Do not No Longer The exceed [address] [place] [address] gm/day. (Same as: Tylenol) Vancomycin 2001 mg: No Longer The infuse over Active 2015 [place] 2.5 hours MEDICATION WASTE Product Size: 1000 mg Product Wasted: ___ mg Zosyn Notes: (Same No Longer The as: Zosyn) Active 2015 [place] Dosing based on Piperacillin component MEDICATION WASTE Product Size: 3375 mg Product Wasted: ___ mg Lisinopril Notes: (Same No Longer The as: Prinivil, Active 2015 [place] Zestril) Amlodipine Notes: (Same No Longer The as: Norvasc) Active 2015 [place] cilostazol Notes: No Longer The Non-Formulary Active 2015 [place] Drug. (Same As: Pletal) Doxazosin Notes: (Same No Longer The as: Cardura) Active 2015 [place] gabapentin Notes: (Same No Longer The as: Neurontin) Active 2015 [place] 24 HR Metoprolol Notes: (Same No Longer The Tartrate 100 MG as: Toprol XL) Active 2015 [facility] Extended Release May split Tablet [Toprol] tab, but do not crush. Alprazolam 2 MG Notes: With No Longer The Oral Tablet food or milk Active 2015 [facility] ds (Same as: Xanax) Albuterol 0.833 Notes: (Same No Longer H The MG/ML / as: Duoneb) Active 2015[place] Ipratropium [place] 0.167 MG/ML Inhalant Solution Zofran Notes: (Same No Longer The as: Zofran) Active 2015 [place] MEDICATION WASTE Product Size: 4 mg Product Wasted: ___ mg Dilaudid Notes: Same No Longer The as: Dilaudid Active 2015 [place] Acetaminophen 300 1 tab, PO, No Longer M H The MG / Codeine BID, PRN pain, Active 2015 [facility] Phosphate 30 MG # 28 tab, 0 Oral Tablet Refill(s) lisinopril 10 mg 10 mg = 1 tab, Active The oral tablet PO, Daily, # 2016 [place] ds 30 tab, 0 Refill(s) metoprolol 100 mg = 1 Active The tartrate 100 mg tab, PO, BID, 2015 [facility] oral tablet # 60 tab, 0 Refill(s) [...] Route: Inactive The PO, Drug form: 2015 [place] TAB, ONCE, Dosing Weight 95, kg, Priority: STAT, Start date: 01/31/16 22:28:00 CDT, Stop date: 01/31/16 22:28:00 CDT Piperacillin / Notes: (Same Inactive The tazobactam as: Zosyn) 2015 [place] Dosing based on Piperacillin component MEDICATION WASTE Product Size: 3375 mg Product Wasted: ___ mg Vancomycin 2001 mg: Inactive The infuse over 2015 2.5 hours MEDICATION WASTE Product Size: 1000 mg Product Wasted: ___ mg Sodium Chloride 1,000 mL, Inactive Th e 0.154 MEQ/ML 2,000 ml/hr, 2015 [facility] nds Injectable Infuse Over: Solution 30 minutes, Route: IV, 1,000, Drug form: INJ, ONCE, Priority: STAT, Dosing Weight 95 kg, Start date: 01/31/16 17:04:00 CDT, Duration: 1 doses or times, Stop date: 01/31/16 17:04:00 CDT Acetaminophen 325 Notes: Do not Inactive The MG / Hydrocodone exceed 4gm/day 2015 [place] Bitartrate 10 MG of Oral Tablet [[place] acetaminophen. 10/325] (Same as: [place] 325/10) Amlodipine 10 mg, PO, Active The Daily, 0 2015 [place] Refill(s) gabapentin 300 mg, PO, Active The BID, 0 2015 [place] Refill(s) atorvastatin Notes: (Same Inactive e As: Lipitor) 2014 [place] lovastatin 20 mg 20 mg = 1 tab, Active The oral tablet PO, Bedtime, # 2014 [place] [facility] 30 tab, 0 Refill(s), given to patient Hydrochlorothiazid 1 tab, Route: No Longer 02/16 The e 12.5 MG / PO, Drug Form: Active 2014 [facility] Lisinopril 20 MG TAB, Dosing Oral Tablet Weight 98.267, kg, Daily, Start date: 02/16/15 9:00:00, Duration: 30 day, Stop date: 03/17/15 9:00:00 Prinivil Notes: (Same Inactive The as: Prinivil, 2014 [place] Zestril) metoprolol Notes: (Same Inactive The tartrate as: Lopressor) 2014 [place] Microzide Notes: (Same Inactive The as: 2014 [place] Hydrodiuril). Give with food. pneumococcal Notes: (Same Inactive Th e capsular as: Pneumovax 2014 [place] polysaccharide 23) type 1 vaccine / Refrigerate pneumococcal capsular polysaccharide type 10A vaccine / pneumococcal capsular polysaccharide type 11A vaccine / pneumococcal capsular polysaccharide type 12F vaccine / pneumococcal capsular polysacchar Alprazolam 0.25 MG Notes: With No Longer The Oral Tablet food or milk Active 2014 [place] ds [Xanax] (Same as: Xanax) Acetaminophen 325 Notes: (Same No Longer The MG / Hydrocodone as: [place] Active 2014l and[facility] Bitartrate 5 MG 325/5) Do not Oral Tablet [[place] exceed 4gm/day 5/325] of acetaminophen. Maria Esther Cruz Notes: (Same No Longer H The As: Tessalon Active 2014 [place] Anthony) "Do Not Crush" Acetaminophen 325 1 tab, PO, Active The MG / Hydrocodone Q12H, PRN 2014l ands Bitartrate 5 MG Pain, # 30 Oral Tablet [[place] tab, 0 5/325] Refill(s) Alprazolam 0.25 MG 0.25 mg = 1 Active H The Oral Tablet tab, PO, BID, 2014[place] nds [Xanax] PRN Anxiety, Stress, # 20 tab, 0 Refill(s) metoprolol 25 mg, PO, Active The tartrate BID, 0 2014 [place] Refill(s) NS 1,000 mL 1,000 mL, No Longer The Rate: 75 Active 2014 [place] ml/hr, Infuse over: 13.3 hr, Route: IV, Dosing Weight 13.636 kg, Total Volume: 1,000, Start date: 02/15/15 18:04:00, Duration: 30 day, Stop date: 03/17/15 18:03:00 Xopenex Notes: SEE RT No Longer The DOCUMENTATION Active 2014 [place] (Same as:Xopenex) Non-Formulary Acetaminophen 325 Notes: Do not No Longer The MG / Hydrocodone exceed 4gm/day Active 2014 [place] Bitartrate 10 MG of Oral Tablet [[place] acetaminophen. 10/325] (Same as: [place] 325/10) Albuterol 0.833 Notes: (Same No Longer H The MG/ML / as: Duoneb) Active 2014lands Ipratropium [place] 0.167 MG/ML Inhalant Solution [DuoNeb] Aspirin Notes: Take Inactive The with food. 2014[place] tramadol 100 mg = 2 Active The hydrochloride 50 tab, PO, Q6H, 2015 [place] MG Oral Tablet PRN pain, X 3 [Ultram] day, # 20 tab, 0 Refill(s) Tylenol Notes: Do not Inactive The exceed 4 2014 [place] gm/day. (Same as: Tylenol) Sodium Chloride 1,000 mL, Inactive e 0.154 MEQ/ML 1,000 ml/hr, 2014[place] nds Injectable Infuse Over: 1 Solution hr, Route: IV, 1,000, Drug form: INJ, ONCE, Priority: STAT, Dosing Weight 104.545 kg, Start date: 01/23/15 14:39:00, Duration: 1 doses or times, Stop date: 01/23/15 14:39:00 Saline Flush 0.9% Notes: Inactive e preservative 2014 [place] free. Allergies, Adverse Reactions, Alerts Substance Category Reaction Severity Reaction Status Date Comments S ource type Reported morphine Assertion Drug Active e allergy [place] Immunizations Immunization Date Site Status Last Updated Comments Sour ce Given pneumococcal Right completed [facility] The 23-valent 5 deltoid [place] vaccine Results Order Name Results Value Reference Date Interpretation Comments [facility] BLOOD BANK RBC product Product available 04/04 The RESULTS (04/04/16 11:22 AM) [facility] BLOOD BANK ABO/Rh B POS 04/04 The RESULTS /2015 [place] BLOOD BANK Antibody Negative 04/04 The RESULTS Scrn (04/04/16 11:20 AM) [facility] URINE AND UA <=1.0 0.1 - 1.0 03/14 The STOOL Urobilinogen mg/dL /2015 [place] URINE AND UA RBC 1 0 - 2 03/14 The STOOL /2015 [place] URINE AND UA WBC 3 0 - 5 03/14 The STOOL /2015 [place] URINE AND UA Sq Epi Few /LPF Few /LPF 03/14 The STOOL /2015 [place] URINE AND UA Mucus Few /LPF None Seen 03/14 The STOOL /LPF /2015 [place] URINE AND UA Leuk Est Negative Negative 03/14 The STOOL (10/18/16 2:08 AM) [place] [facility] URINE AND UA Protein Negative Negative 03/14 The STOOL mg/dL mg/dL /2015 [place] URINE AND UA pH 5.0 5.0 - 8.0 03/14 The STOOL /2015 [place] URINE AND UA Spec Grav 1.009 <=1.030 03/14 The STOOL /2015 [place] URINE AND UA Turbidity Clear Clear 03/14 The STOOL (03/14/16 2:08 AM) /2015 [place] [facility] URINE AND UA Ketones Negative Negative 03/14 The STOOL mg/dL mg/dL /2015 [place] URINE AND UA Glucose Negative Negative 03/14 The STOOL mg/dL mg/dL /2015 [place] URINE AND UA Color Yellow Yellow 03/14 The STOOL *NA* /2015 [place] (03/14/16 2:08 AM) URINE AND UA Nitrite Negative Negative 03/14 The STOOL (03/14/16 2:08 AM) /2015 [place] [facility] URINE AND UA Blood Negative Negative 03/14 The STOOL (03/14/16 2:08 AM) /2015 [place] [facility] URINE AND UA Bili Negative Negative 03/14 The STOOL *NA* /2015 [place] (03/14/16 2:08 AM) CHEM PANEL Lactic Acid 0.8 0.5 - 2.2 03/14 The Lvl /2015 [place] CHEM PANEL Procalcitoni <0.05 0.00 - 03/14 The n Lvl ng/mL 0. [place] BLOOD BANK Antibody Negative 03/14 The RESULTS Scrn (03/13/16 9:07 PM) [facility] BLOOD BANK ABO/Rh B POS 03/14 The RESULTS /2015 [place] CHEM PANEL eGFR 43 03/14 Result MH Comment: [facility] eGFR is calculated using the CKD-EPI formula. [...] 21 7 - 22 10 MH The [place] CHEM PANEL Creatinine 1.79 0.50 - 10 MH The Lvl 1.40 /2015 [place] CHEM PANEL Alk Phos 95 39 - 136 10 MH The [place] CHEM PANEL Bili Total 0.3 0.2 - 1.3 10 MH The [place] CHEM PANEL AST 39 0 - 37 10 MH The [place] CHEM PANEL ALT 59 0 - 65 10 MH The [place] CHEM PANEL Sodium Lvl 139 135 - 145 10 MH The [place] CHEM PANEL Total 7.8 6.4 - 8.4 10 MH The Protein [place] CHEM PANEL Albumin Lvl 2.5 3.5 - 5.0 10 MH The [place] CHEM PANEL Glucose Lvl 120 70 - 99 10 MH The [place] CHEM PANEL Chloride Lvl 106 95 - 109 10 MH The [place] CHEM PANEL CO2 21 24 - 32 10 MH The [place] CHEM PANEL Calcium Lvl 10.1 8.5 - 10.5 10 MH The [place] CHEM PANEL Potassium 3.3 3.5 - 5.1 10 MH The Lvl [place] CHEM PANEL A/G Ratio 0.5 0.7 - 1.6 10 MH The [place] CHEM PANEL Globulin 5.3 2.7 - 4.2 10 MH The [place] CHEM PANEL B/C Ratio 12 6 - 25 10/ MH The [place] CHEM PANEL AGAP 15.3 10.0 - 10 MH The 20.0 [place] HEMATOLOGY MPV 7.4 7.4 - 10.4 1018 MH The [place] HEMATOLOGY WBC 7.3 3.7 - 10.4 10 MH The [place] HEMATOLOGY MCV 88.5 80.0 - 1018 MH The 94.0 [place] HEMATOLOGY RBC 3.00 4.70 - 10 MH The 6.10 [place] HEMATOLOGY Hct 26.5 42.0 - 03/14 MH The 54.0 /2015 [place] HEMATOLOGY Hgb 8.8 14.0 - 03/14 MH The 18.0 [place] HEMATOLOGY MCHC 33.1 32.0 - 03/14 MH The 36.0 [place] HEMATOLOGY MCH 29.3 27.0 - 03/14 The 31.0 [place] HEMATOLOGY Platelet 241 133 - 450 10 MH The [place] HEMATOLOGY RDW 15.5 11.5 - 03/14 The 14.5 [place] HEMATOLOGY Basophils # 0.1 0.0 - 0.2 03/14 MH The [place] HEMATOLOGY Lymphocytes 14.3 20.0 - 03/14 MH The 40.0 [place] HEMATOLOGY Eosinophils 1.9 0.0 - 4.0 03/14 MH The [place] HEMATOLOGY Segs 77.1 45.0 - 03/14 MH The 75.0 [place] HEMATOLOGY Monocytes 5.3 2.0 - 12.0 03/14 MH The [place] HEMATOLOGY Basophils 1.4 0.0 - 1.0 03/14 MH The [place] HEMATOLOGY Segs-Bands # 5.6 1.5 - 8.1 03/14 MH The [place] HEMATOLOGY Lymphocytes 1.0 1.0 - 5.5 03/14 MH The [place] HEMATOLOGY Monocytes # 0.4 0.0 - 0.8 03/14 MH The [place] HEMATOLOGY Eosinophils 0.1 0.0 - 0.5 03/14 MH The [place] ANEMIA UIBC 174 110 - 370 02/15 The [place] ANEMIA TIBC 196 228 - 428 02/15 The [place] ANEMIA Iron 22 45 - 160 02/15 The [place] ANEMIA % Satur Fe 11 12 - 57 02/15 The [place] CHEM PANEL eGFR 57 02/14 [facility] Comment: [place] eGFR is calculated using the CKD-EPI formula. [...] 14.7 10.0 - 02/14 MH The 20.0 [place] CHEM PANEL Calcium Lvl 8.7 8.5 - 10.5 02/14 MH The [place] CHEM PANEL CO2 24 24 - 32 09 MH The [place] CHEM PANEL Chloride Lvl 99 95 - 109 02/14 MH The [place] CHEM PANEL Potassium 3.7 3.5 - 5.1 02/14 MH The Lvl /2015 [place] CHEM PANEL BUN 16 7 - 22 02/14 MH The [place] CHEM PANEL Glucose Lvl 128 70 - 99 02/14 MH The [place] CHEM PANEL Sodium Lvl 134 135 - 145 02/14 MH The [place] CHEM PANEL Creatinine 1.42 0.50 - 02/14 MH The Lvl 1.40 [place] CHEM PANEL eGFR 51 09 Result MH Comment: [facility] eGFR is calculated using the CKD-EPI formula. [...] 0.2 - 1.3 02/13 Result The Comment: [place] reviewed all results 02/14/2016 06:35 [facility] CHEM PANEL ALT 25 0 - 65 02/13 The [place] CHEM PANEL AST 15 0 - 37 02/13 The [place] CHEM PANEL Alk Phos 62 39 - 136 02/13 The [place] CHEM PANEL Globulin 4.8 2.7 - 4.2 02/13 The [place] CHEM PANEL A/G Ratio 0.5 0.7 - 1.6 02/13 The [place] CHEM PANEL Calcium Lvl 9.0 8.5 - 10.5 02/13 The [place] CHEM PANEL Glucose Lvl 109 70 - 99 02/13 The [place] CHEM PANEL CO2 24 24 - 32 02/13 The [place] CHEM PANEL Chloride Lvl 101 95 - 109 02/13 The [place] CHEM PANEL BUN 17 7 - 22 02/13 The [place] CHEM PANEL Potassium 4.1 3.5 - 5.1 02/13 The Lvl /2015 [place] CHEM PANEL AGAP 14.1 10.0 - 02/13 The 20.0 [place] CHEM PANEL Albumin Lvl 2.3 3.5 - 5.0 02/13 The [place] CHEM PANEL Total 7.1 6.4 - 8.4 02/13 The Protein [place] CHEM PANEL Creatinine 1.55 0.50 - 02/13 The Lvl 1.40 [place] CHEM PANEL Sodium Lvl 135 135 - 145 02/13 The [place] CHEM PANEL B/C Ratio 11 6 - 25 02/13 The [place] HEMATOLOGY MPV 7.7 7.4 - 10.4 02/13 The [place] HEMATOLOGY Hct 25.4 42.0 - 02/13 The 54.0 [place] HEMATOLOGY MCH 32.7 27.0 - 02/13 The 31.0 [place] HEMATOLOGY MCV 96.6 80.0 - 02/13 The 94.0 [place] HEMATOLOGY Platelet 296 133 - 450 02/13 The [place] HEMATOLOGY RDW 14.7 11.5 - 02/13 The 14.5 [place] HEMATOLOGY MCHC 33.8 32.0 - 02/13 MH The 36.0 [place] HEMATOLOGY WBC 8.4 3.7 - 10.4 02/13 The [place] HEMATOLOGY Hgb 8.6 14.0 - 02/13 The 18.0 [place] HEMATOLOGY RBC 2.63 4.70 - 02/13 The 6.10 [place] HEMATOLOGY Lymphocytes 1.5 1.0 - 5.5 02/13 MH The # [place] HEMATOLOGY Eosinophils 0.2 0.0 - 0.5 02/13 MH The # [place] HEMATOLOGY Monocytes # 0.8 0.0 - 0.8 02/13 The [place] HEMATOLOGY Basophils # 0.1 0.0 - 0.2 02/13 The [place] HEMATOLOGY Monocytes 9.9 2.0 - 12.0 02/13 The [place] HEMATOLOGY Lymphocytes 17.2 20.0 - 02/13 The 40.0 [place] HEMATOLOGY Segs 69.8 45.0 - 02/13 The 75.0 [place] HEMATOLOGY Eosinophils 2.2 0.0 - 4.0 02/13 The [place] HEMATOLOGY Segs-Bands # 5.9 1.5 - 8.1 02/13 The [place] HEMATOLOGY Basophils 0.9 0.0 - 1.0 02/13 The [place] TOXICOLOGY Vanco Tr 14.8 02/13 The [place] TOXICOLOGY Vanco Tr TND TBD 02/13 The [place] CHEM PANEL Total 6.3 6.4 - 8.4 02/12 The Protein [place] CHEM PANEL A/G Ratio 0.7 0.7 - 1.6 02/12 The [place] CHEM PANEL B/C Ratio 12 6 - 25 02/12 The [place] CHEM PANEL Globulin 3.8 2.7 - 4.2 02/12 The [place] CHEM PANEL AST 12 0 - 37 02/12 The [place] CHEM PANEL Alk Phos 61 39 - 136 02/12 The [place] CHEM PANEL Albumin Lvl 2.5 3.5 - 5.0 / MH The [place] CHEM PANEL ALT 26 0 - 65 02/12 MH The [place] CHEM PANEL Bili Total 0.4 0.2 - 1.3 02/12 MH The [place] CHEM PANEL AGAP 13.5 10.0 - 02/12 MH The 20.0 [place] CHEM PANEL eGFR 57 02/12 Result Comment: [facility] eGFR is calculated using the CKD-EPI formula. [...] 27 24 - 32 02/12 MH The [place] CHEM PANEL Calcium Lvl 8.7 8.5 - 10.5 02/12 MH The [place] CHEM PANEL Chloride Lvl 100 95 - 109 02/12 MH The [place] CHEM PANEL Potassium 4.5 3.5 - 5.1 02/12 MH The Lvl [place] CHEM PANEL Creatinine 1.42 0.50 - 02/12 MH The Lvl 1.40 /2015 [place] CHEM PANEL Sodium Lvl 136 135 - 145 02/12 MH The [place] CHEM PANEL Glucose Lvl 105 70 - 99 02/12 The [place] CHEM PANEL BUN 17 7 - 22 02/12 The [place] TOXICOLOGY Vanco Tr TND TBD 02/12 MH The [place] TOXICOLOGY Vanco Tr 9.3 02/12 The [place] CHEM PANEL Phosphorus 4.9 2.5 - 4.5 02/11 MH The [place] CHEM PANEL Magnesium 1.8 1.8 - 2.4 09/ MH The Lvl /2015 [place] HEMATOLOGY Segs 70.5 45.0 - 02/11 MH The 75.0 /2015 [place] HEMATOLOGY Lymphocytes 18.0 20.0 - 02/11 MH The 40.0 /2015 [place] HEMATOLOGY Monocytes 9.7 2.0 - 12.0 02/11 The [place] HEMATOLOGY Segs-Bands # 6.4 1.5 - 8.1 02/11 The [place] HEMATOLOGY Lymphocytes 1.6 1.0 - 5.5 02/11 MH The # [place] HEMATOLOGY Basophils 0.5 0.0 - 1.0 02/11 MH The [place] HEMATOLOGY Eosinophils 1.3 0.0 - 4.0 02/11 MH The [place] HEMATOLOGY Monocytes # 0.9 0.0 - 0.8 02/11 The [place] HEMATOLOGY Eosinophils 0.1 0.0 - 0.5 02/11 MH The [place] HEMATOLOGY Platelet 307 133 - 450 02/11 The [place] HEMATOLOGY MPV 6.9 7.4 - 10.4 02/11 The [place] HEMATOLOGY MCHC 33.9 32.0 - 02/11 The 36.0 [place] HEMATOLOGY RDW 15.1 11.5 - 02/11 MH The 14.5 /2015 [place] HEMATOLOGY RBC 2.69 4.70 - 02/11 The 6.10 /2015 [place] HEMATOLOGY MCV 96.5 80.0 - 02/11 MH The 94.0 [place] HEMATOLOGY WBC 9.1 3.7 - 10.4 02/11 The [place] HEMATOLOGY Hgb 8.8 14.0 - 02/11 The 18.0 /2015 [place] HEMATOLOGY Hct 26.0 42.0 - 02/11 MH The 54.0 /2015 [place] HEMATOLOGY MCH 32.7 27.0 - 02/11 MH The 31.0 [place] HEMATOLOGY Segs-Bands # 7.7 1.5 - 8.1 02/11 The [place] HEMATOLOGY Basophils 1.5 0.0 - 1.0 09 The [place] HEMATOLOGY Basophils # 0.2 0.0 - 0.2 09 MH The [place] HEMATOLOGY Eosinophils 0.2 0.0 - 0.5 02/11 The # [place] HEMATOLOGY Monocytes # 1.2 0.0 - 0.8 02/11 The [place] HEMATOLOGY Segs 69.4 45.0 - 02/11 The 75.0 /2015 [place] HEMATOLOGY Monocytes 10.5 2.0 - 12.0 02/11 The [place] HEMATOLOGY Eosinophils 1.6 0.0 - 4.0 02/11 The [place] HEMATOLOGY Lymphocytes 1.9 1.0 - 5.5 02/11 The # /2015 [place] HEMATOLOGY Lymphocytes 17.0 20.0 - 02/11 The 40.0 /2015 [place] HEMATOLOGY Hct 28.9 42.0 - 02/11 The 54.0 /2015 [place] HEMATOLOGY MCHC 33.6 32.0 - 02/11 The 36.0 [place] HEMATOLOGY RDW 14.6 11.5 - 02/11 The 14.5 [place] HEMATOLOGY MCV 96.6 80.0 - 02/11 The 94.0 [place] HEMATOLOGY MCH 32.4 27.0 - 02/11 The 31.0 /2015 [place] HEMATOLOGY Hgb 9.7 14.0 - 02/11 The 18.0 [place] HEMATOLOGY WBC 11.1 3.7 - 10.4 02/11 The [place] HEMATOLOGY RBC 2.99 4.70 - 02/11 The 6.10 [place] HEMATOLOGY Platelet 360 133 - 450 02/11 The [place] HEMATOLOGY MPV 7.4 7.4 - 10.4 02/11 The [place] TOXICOLOGY Vanco Tr 10.9 02/10 The [place] TOXICOLOGY Vanco Tr TND TBD 02/10 The [place] HEMATOLOGY Basophils # 0.1 0.0 - 0.2 02/09 The [place] TOXICOLOGY Vanco Lvl 14.1 02/09 The [place] HEMATOLOGY Sed Rate >100 0 - 15 02/08 The [place] BLOOD BANK Antibody Negative 02/07 The RESULTS Scrn (02/08/16 5:38 AM) /2015 [facility] BLOOD BANK ABO/Rh B POS 02/07 The RESULTS [place] CHEM PANEL Procalcitoni 0.11 0.00 - 02/07 The n Lvl 0.10 [place] URINE AND UA Sq Epi None Seen 02/04 The STOOL /2015 [place] URINE AND UA <=1.0 0.1 - 1.0 02/04 The STOOL Urobilinogen mg/dL /2015 [place] URINE AND UA Leuk Est Negative Negative 02/04 The STOOL (02/05/16 12:36 AM) /2015 [place] [facility] URINE AND UA Bacteria Occasional None Seen 02/04 Th e STOOL /HPF /HPF /2015 [place] URINE AND UA WBC 1 0 - 5 02/04 The STOOL /2015 [place] URINE AND UA Blood Negative Negative 02/04 The STOOL (02/05/16 12:36 AM) /2015 [place] [facility] URINE AND UA Bili Negative Negative 02/04 The STOOL *NA* /[place] (02/05/16 12:36 AM) URINE AND UA Nitrite Negative Negative 02/04 The STOOL (02/05/16 12:36 AM) /2015 [place] [facility] URINE AND UA Glucose Negative Negative 02/04 The STOOL mg/dL mg/dL /2015 [place] URINE AND UA Protein Negative Negative 02/04 The STOOL mg/dL mg/dL /2015 [place] URINE AND UA Turbidity Clear Clear 02/04 The STOOL (02/05/16 12:36 AM) /2015 [place] [facility] URINE AND UA pH 6.0 5.0 - 8.0 02/04 The STOOL /2015 [place] URINE AND UA Color Light Yellow Yellow 02/04 The STOOL *NA* /2015 [place] (02/05/16 12:36 AM) URINE AND UA Ketones Negative Negative 02/04 The STOOL mg/dL mg/dL /2015 [place] URINE AND UA Spec Grav 1.006 <=1.030 02/04 The STOOL /2015 [place] URINE AND UA Sq Epi None Seen 01/31 MH The STOOL /2015 [place] URINE AND UA <=1.0 0.1 - 1.0 01/31 The STOOL Urobilinogen mg/dL /2015 [place] URINE AND UA Blood Negative Negative 01/31 The STOOL (02/01/16 4:31 PM) /2015 [place] [facility] URINE AND UA Nitrite Negative Negative 01/31 MH The STOOL (02/01/16 4:31 PM) /2016 [place] [facility] URINE AND UA Leuk Est Negative Negative 01/31 The STOOL (02/01/16 4:31 PM) /2015 [place] [facility] URINE AND UA WBC 1 0 - 5 01/31 MH The STOOL /2015 [place] URINE AND UA Hyal Cast 3 0 - 2 01/31 MH The STOOL /2015 [place] URINE AND UA pH 5.5 5.0 - 8.0 01/31 The STOOL /2015 [place] URINE AND UA Glucose Negative Negative 01/31 MH The STOOL mg/dL mg/dL /2015 [place] URINE AND UA Ketones Negative Negative 01/31 The STOOL mg/dL mg/dL /2015 [place] URINE AND UA Bili Negative Negative 01/31 The STOOL *NA* /2015 [place] (02/01/16 4:31 PM) URINE AND UA Protein Negative Negative 01/31 The STOOL mg/dL mg/dL [place] URINE AND UA Color Yellow Yellow 01/31 The STOOL *NA* [place] (02/01/16 4:31 PM) URINE AND UA Turbidity Clear Clear 01/31 The STOOL (02/01/16 4:31 PM) [place] [facility] URINE AND UA Spec Grav 1.007 <=1.030 01/31 MH The STOOL /2015 [place] URINE CHEM U Chloride 41 01/31 The [place] URINE CHEM U Creatinine 70.40 01/31 The [place] URINE CHEM U Sodium 38 01/31 The [place] CARDIAC Troponin-I <0.02 0.00 - 01/30 The ENZYMES 0.40 [place] CHEM PANEL Procalcitoni 0.13 0.00 - 01/30 The n Lvl 0.10 [place] CHEM PANEL Lactic Acid 1.7 0.5 - 2.2 09 MH The Lvl /2015 [place] CHEM PANEL Bili Total 0.4 0.2 - 1.3 01/30 The [place] CHEM PANEL Total 7.7 6.4 - 8.4 01/30 MH The Protein /2015 [place] CHEM PANEL AST 19 0 - 37 01/30 The [place] CHEM PANEL ALT 23 0 - 65 01/30 The [place] CHEM PANEL Alk Phos 58 39 - 136 09 The [place] CHEM PANEL Albumin Lvl 2.8 3.5 - 5.0 09/ MH The /2015 [place] CHEM PANEL A/G Ratio 0.6 0.7 - 1.6 09/ MH The [place] CHEM PANEL Globulin 4.9 2.7 - 4.2 09/ MH The [place] CHEM PANEL B/C Ratio 15 6 - 25 09/ MH The /2015 [place] HEMATOLOGY PTT 42.4 22.9 - 09 MH The 35.8 /2015 [place] HEMATOLOGY PT 14.6 12.0 - 09 MH The 14.7 /2015 [place] HEMATOLOGY INR 1.11 0.85 - 09 MH The 1.17 [place] LIPIDS VLDL 77 02/16 MH The [place] LIPIDS HDL 29 >=61 mg/dL 02/16 MH The [place] LIPIDS Chol 222 <=199 02/16 MH The mg/dL [place] LIPIDS CHD Risk 7.66 4.00 - 02/16 MH The 7.30 [place] LIPIDS Trig 384 <=149 02/16 MH The mg/dL [place] LIPIDS LDL 116 <=99 mg/dL 02/16 MH The (Calculated) /2014 [place] CARDIAC CK MB Index 0.8 0.0 - 2.5 02/16 MH The ENZYMES /2014 [place] CARDIAC CK MB 0.6 0.5 - 3.6 02/16 MH The ENZYMES [place] CARDIAC Troponin-I <0.02 0.00 - 02/16 MH The ENZYMES 0.40 /2014 [place] CARDIAC Total CK 76 12 - 191 02/16 MH The ENZYMES [place] CARDIAC Troponin-I <0.02 0.00 - 02/16 MH The ENZYMES 0.40 /2014 [place] CARDIAC Total CK 89 12 - 191 02/16 MH The ENZYMES /2014 [place] CARDIAC CK MB Index 1.0 0.0 - 2.5 02/16 MH The ENZYMES /2014 [place] CARDIAC CK MB 0.9 0.5 - 3.6 02/16 MH The ENZYMES /2014 [place] THYROID TSH 2.000 0.360 - 02/16 MH The PANEL 3.740 /2014 [place] CARDIAC CK MB Index 0.8 0.0 - 2.5 02/15 MH The ENZYMES [place] CARDIAC Troponin-I <0.02 0.00 - 02/15 MH The ENZYMES 0.40 /2014 [place] CARDIAC Total CK 111 12 - 191 02/15 MH The ENZYMES /2014 [place] CARDIAC CK MB 0.9 0.5 - 3.6 02/15 MH The ENZYMES /2014 [place] CHEM PANEL eGFR 70 02/15 Result Comment: [facility] eGFR is calculated using the CKD-EPI formula. [...] Phos 87 39 - 136 02/15 The [place] CHEM PANEL AST 23 0 - 37 02/15 MH The [place] CHEM PANEL ALT 27 0 - 65 02/15 MH The [place] CHEM PANEL Albumin Lvl 3.4 3.5 - 5.0 02/15 The [place] CHEM PANEL Total 7.7 6.4 - 8.4 02/15 MH The Protein [place] CHEM PANEL A/G Ratio 0.8 0.7 - 1.6 02/15 MH The [place] CHEM PANEL Globulin 4.3 2.0 - 4.0 02/15 MH The [place] CHEM PANEL B/C Ratio 6 6 - 25 02/15 MH The [place] CHEM PANEL AGAP 11.8 10.0 - 02/15 MH The 20.0 [place] CHEM PANEL Bili Total 0.4 0.2 - 1.3 02/15 The [place] CHEM PANEL Calcium Lvl 9.2 8.5 - 10.5 02/15 The [place] CHEM PANEL CO2 25 24 - 32 02/15 MH The [place] CHEM PANEL Glucose Lvl 88 70 - 99 02/15 The [place] CHEM PANEL Chloride Lvl 106 95 - 109 02/15 The [place] CHEM PANEL Potassium 4.8 3.5 - 5.1 02/15 The [place] CHEM PANEL Sodium Lvl 138 135 - 145 02/15 The [place] CHEM PANEL Creatinine 1.2 0.5 - 1.4 02/15 The [place] CHEM PANEL BUN 7 7 - 22 02/15 The [place] CHEM PANEL Magnesium 2.0 1.8 - 2.4 02/15 The [place] HEMATOLOGY Eosinophils 0.4 0.0 - 0.5 02/15 The # [place] HEMATOLOGY Basophils # 0.0 0.0 - 0.2 02/15 The [place] HEMATOLOGY Segs-Bands # 4.6 1.5 - 8.1 02/15 The [place] HEMATOLOGY Monocytes # 0.8 0.0 - 0.8 02/15 The [place] HEMATOLOGY Monocytes 10.3 2.0 - 12.0 02/15 The [place] HEMATOLOGY Eosinophils 5.0 0.0 - 4.0 02/15 The [place] HEMATOLOGY Basophils 0.4 0.0 - 1.0 02/15 The [place] HEMATOLOGY Lymphocytes 25.7 20.0 - 02/15 The 40.0 [place] HEMATOLOGY Lymphocytes 2.0 1.0 - 5.5 02/15 The # [place] HEMATOLOGY Segs 58.6 45.0 - 02/15 The 75.0 [place] HEMATOLOGY INR 1.00 0.85 - 02/15 The 1.17 [place] HEMATOLOGY PT 13.5 12.0 - 02/15 The 14.7 [place] HEMATOLOGY PTT 33.7 22.9 - 02/15 The 35.8 [place] HEMATOLOGY Platelet 170 133 - 450 02/15 The [place] HEMATOLOGY WBC 7.8 3.7 - 10.4 02/15 The [place] HEMATOLOGY MCH 33.3 27.0 - 02/15 The 31.0 [place] HEMATOLOGY RBC 4.62 4.70 - 02/15 The 6.10 [place] HEMATOLOGY MCV 97.4 80.0 - 02/15 The 94.0 [place] HEMATOLOGY Hgb 15.4 14.0 - 02/15 The 18.0 [place] HEMATOLOGY Hct 45.0 42.0 - 02/15 The 54.0 [place] HEMATOLOGY MCHC 34.2 32.0 - 02/15 The 36.0 [place] HEMATOLOGY MPV 7.0 7.4 - 10.4 02/15 The /2014 [place] HEMATOLOGY RDW 16.0 11.5 - 02/15 The 14. [place] DRUG U Cocaine Negative Negative 01/23 The SCREEN Scr *NA* [place] (01/23/15 3:10 PM) DRUG U Opiate Scr Negative Negative 01/23 The SCREEN /2014 [place] (01/23/15 3:10 PM) DRUG U Cannab Scr Negative Negative 01/23 The SCREEN [place] (01/23/15 3:10 PM) DRUG U Phencyc Negative Negative 01/23 The SCREEN Scr *NA* /2014 [place] (01/23/15 3:10 PM) DRUG UDS Note See Note 01/23 The SCREEN (01/23/15 3:10 PM) /2014 [facility] nds DRUG U Shoshana Scr Negative Negative 01/23 The SCREEN *NA* [place] (01/23/15 3:10 PM) DRUG U Benzodia Positive Negative 01/23 The SCREEN Scr *ABN* /2014 [place] (01/23/15 3:10 PM) DRUG U Amph Scr Negative Negative 01/23 The SCREEN *NA* /2014 [place] (01/23/15 3:10 PM) URINE AND UA <=1.0 0.1 - 1.0 01/23 The STOOL Urobilinogen mg/dL /2014 [place] URINE AND UA Glucose Negative Negative 01/23 The STOOL mg/dL mg/dL [place] URINE AND UA Sq Epi Few /LPF Few /LPF 01/23 The STOOL /2014 [place] URINE AND UA Leuk Est Negative Negative 01/23 The STOOL (01/23/15 3:10 PM) /[facility] URINE AND UA Nitrite Negative Negative 01/23 MH The STOOL (01/23/15 3:10 PM) /2014 [facility] nds URINE AND UA Bacteria Occasional None Seen 01/23 Th e STOOL /HPF /HPF /2014 [place] URINE AND UA RBC 3 0 - 2 01/23 MH The STOOL /2014 [place] URINE AND UA WBC <1 0 - 5 01/23 MH The STOOL /2014 [place] URINE AND UA Hyal Cast 5 0 - 2 01/23 The STOOL /2014 [place] URINE AND UA Amorph Occasional None Seen 01/23 MH The STOOL Brisa /HPF /HPF /2014 [place] URINE AND UA Mucus Few /LPF None Seen 01/23 The STOOL /LPF /2014 [place] URINE AND UA Color Yellow Yellow 01/23 The STOOL *NA* /2014 [place] (01/23/15 3:10 PM) URINE AND UA Protein 200 mg/dL Negative 01/23 MH The STOOL mg/dL [place] URINE AND UA pH 6.0 5.0 - 8.0 01/23 The STOOL [place] URINE AND UA Spec Grav 1.017 <=1.030 01/23 The STOOL [place] URINE AND UA Turbidity Slight Clear 01/23 The STOOL *ABN* /2014 [place] (01/23/15 3:10 PM) URINE AND UA Blood Moderate Negative 01/23 The STOOL *ABN* /2014 [place] (01/23/15 3:10 PM) URINE AND UA Bili Negative Negative 01/23 The STOOL *NA* /2014 [place] (01/23/15 3:10 PM) URINE AND UA Ketones Trace Negative 01/23 The STOOL mg/dL mg/dL [place] URINE AND UA Sperm Occasional None Seen 01/23 MH The STOOL /HPF /HPF [place] CARDIAC CK MB Index 0.7 0.0 - 2.5 01/23 The ENZYMES [place] CARDIAC Troponin-I <0.02 0.00 - 01/23 MH The ENZYMES 0.40 [place] CARDIAC Total CK 170 12 - 191 01/23 MH The ENZYMES [place] CARDIAC CK MB 1.2 0.5 - 3.6 01/23 The ENZYMES [place] CHEM PANEL eGFR 54 01/23 Result Comment: [place] eGFR is calculated using the CKD-EPI formula. [...] 1.0 0.7 - 1.6 01/23 MH The Only [place] CHEM PANEL AST 23 0 - 37 01/23 MH The [place] CHEM PANEL Albumin Lvl 4.3 3.5 - 5.0 01/23 The [place] CHEM PANEL ALT 39 0 - 65 01/23 MH The [place] CHEM PANEL Total 8.8 6.4 - 8.4 01/23 MH The Protein Only [place] CHEM PANEL Calcium Lvl 9.3 8.5 - 10.5 01/23 MH The [place] CHEM PANEL AGAP 20.5 10.0 - 08 MH The 20.0 Only [place] CHEM PANEL Globulin 4.5 2.0 - 4.0 01/23 MH The [place] CHEM PANEL B/C Ratio 10 6 - 25 01/23 MH The [place] CHEM PANEL Bili Total 0.5 0.2 - 1.3 01/23 MH The Only [place] CHEM PANEL Alk Phos 88 39 - 136 01/23 MH The Only [place] CHEM PANEL Potassium 4.5 3.5 - 5.1 01/23 MH The Lvl [place] CHEM PANEL Sodium Lvl 139 135 - 145 01/23 The [place] CHEM PANEL CO2 17 24 - 32 01/23 The Only [place] CHEM PANEL Chloride Lvl 106 95 - 109 01/23 The Only [place] CHEM PANEL Glucose Lvl 114 70 - 99 01/23 The Only [place] CHEM PANEL Creatinine 1.5 0.5 - 1.4 01/23 The Lvl [place] CHEM PANEL BUN 15 7 - 22 01/23 The [place] HEMATOLOGY Segs 89.7 45.0 - 01/23 The 75.0 [place] HEMATOLOGY Segs-Bands # 11.6 1.5 - 8.1 01/23 The [place] HEMATOLOGY Lymphocytes 0.8 1.0 - 5.5 01/23 The # [place] HEMATOLOGY Lymphocytes 6.5 20.0 - 01/23 The 40.0 [place] HEMATOLOGY Monocytes 3.2 2.0 - 12.0 01/23 The [place] HEMATOLOGY Monocytes # 0.4 0.0 - 0.8 01/23 The [place] HEMATOLOGY Eosinophils 0.0 0.0 - 0.5 01/23 MH The [place] HEMATOLOGY Basophils # 0.1 0.0 - 0.2 01/23 The [place] HEMATOLOGY Eosinophils 0.2 0.0 - 4.0 01/23 The [place] HEMATOLOGY Basophils 0.4 0.0 - 1.0 01/23 The [place] HEMATOLOGY PT 14.2 12.0 - 01/23 The 14. [place] HEMATOLOGY INR 1.07 0.85 - 01/23 The 1.17 [place] HEMATOLOGY PTT 31.2 22.9 - 01/23 The 35.8 [place] HEMATOLOGY MPV 8.3 7.4 - 10.4 01/23 The [place] HEMATOLOGY MCHC 32.8 32.0 - 01/23 The 36.0 [place] HEMATOLOGY RDW 17.0 11.5 - 01/23 The 14. [place] HEMATOLOGY Platelet 202 133 - 450 01/23 The [place] HEMATOLOGY Hct 51.7 42.0 - 01/23 The 54.0 [place] HEMATOLOGY MCV 97.9 80.0 - 01/23 The 94.0 [place] HEMATOLOGY MCH 32.1 27.0 - 01/23 The 31.0 [place] HEMATOLOGY Hgb 17.0 14.0 - 01/23 The 18.0 [place] HEMATOLOGY WBC 12.9 3.7 - 10.4 01/23 [place] HEMATOLOGY RBC 5.28 4.70 - 01/23 The 6.10 [place] TOXICOLOGY Etoh (%) <0.003 01/23 [place] TOXICOLOGY Ethanol Lvl <3 01/23 [place] CHEM PANEL eGFR 71 11/20 <sup>1</sup>R [facility] Comment: The eGFR is calculated using the [...] Total 0.3 0.2 - 1.3 11/20 The [place] CHEM PANEL AST 18 0 - 37 11/20 The [place] CHEM PANEL Alk Phos 88 39 - 136 11/20 The [place] CHEM PANEL ALT 36 0 - 65 11/20 The [place] CHEM PANEL Albumin Lvl 4.0 3.5 - 5.0 11/20 The [place] CHEM PANEL Total 8.8 6.4 - 8.4 11/20 The Protein [place] CHEM PANEL CO2 22 24 - 32 11/20 The [place] CHEM PANEL Calcium Lvl 9.5 8.5 - 10.5 11/20 The [place] CHEM PANEL Chloride Lvl 103 95 - 109 11/20 The [place] CHEM PANEL Sodium Lvl 135 135 - 145 11/20 The [place] CHEM PANEL Potassium 4.2 3.5 - 5.1 11/20 The Lvl [place] CHEM PANEL Creatinine 1.2 0.5 - 1.4 11/20 The Lvl [place] CHEM PANEL Glucose Lvl 110 70 - 99 11/20 <sup>4</sup>I nterpretive [place] Data: Adult reference range values reflect the clinical guidelines
of the [place] [employer]. CHEM PANEL BUN 7 7 - 22 11/20 The [place] CHEM PANEL Globulin 4.8 2.0 - 4.0 11/20 The [place] CHEM PANEL A/G Ratio 0.8 0.7 - 1.6 11/20 The [place] CHEM PANEL B/C Ratio 6 6 - 25 11/20 The [place] CHEM PANEL AGAP 14.2 10.0 - 11/20 The 20.0 [place] HEMATOLOGY Eosinophils 3.2 0.0 - 4.0 11/20 The [place] HEMATOLOGY Lymphocytes 16.7 20.0 - 11/20 The 40.0 [place] HEMATOLOGY Monocytes 6.2 2.0 - 12.0 11/20 The [place] HEMATOLOGY Segs 73.3 45.0 - 11/20 The 75.0 [place] HEMATOLOGY Basophils 0.6 0.0 - 1.0 11/20 The [place] HEMATOLOGY Basophils # 0.1 0.0 - 0.2 11/20 The [place] HEMATOLOGY Eosinophils 0.3 0.0 - 0.5 11/20 The # [place] HEMATOLOGY Monocytes # 0.6 0.0 - 0.8 11/20 The [place] HEMATOLOGY Lymphocytes 1.6 1.0 - 5.5 11/20 The [place] HEMATOLOGY Segs-Bands # 6.8 1.5 - 8.1 11/20 The [place] HEMATOLOGY Platelet 170 133 - 450 11/20 The [place] HEMATOLOGY MPV 7.6 7.4 - 10.4 11/20 The [place] HEMATOLOGY MCHC 33.8 32.0 - 11/20 The 36.0 [place] HEMATOLOGY RDW 14.2 11.5 - 11/20 The 14.5 [place] HEMATOLOGY MCH 33.1 27.0 - 11/20 The 31.0 [place] HEMATOLOGY MCV 97.9 80.0 - 11/20 The 94. [place] HEMATOLOGY Hgb 14.2 14.0 - 11/20 The 18.0 [place] HEMATOLOGY Hct 42.1 42.0 - 11/20 The 54. [place] HEMATOLOGY WBC 9.3 3.7 - 10.4 11/20 [place] HEMATOLOGY RBC 4.30 4.70 - 11/20 The 6. [place] TOXICOLOGY Vanco Tr TND unknown 11/20 [place] TOXICOLOGY Vanco Tr 7.7 11/20 <sup>5</sup>I nterpretive [place] Data: Therapeutic Range:
Trough: 10 - 20 ug/mL
Peak: 20 - 40 ug/mL
Potential Toxicity: >80 ug/mL CHEM PANEL eGFR 47 11/17 <sup>2</sup>R [facility] Comment: The eGFR is calculated using the [...] Creatinine 1.7 0.5 - 1.4 11/17 The [place] CHEM PANEL BUN 14 7 - 22 11/17 [place] ELECTROLYT Potassium 4.3 3.5 - 5.1 11/17 The ES [place] HEMATOLOGY Hct 36.8 42.0 - 11/17 The 54. [place] HEMATOLOGY MCV 97.6 80.0 - 11/17 The 94.0 [place] HEMATOLOGY MCH 33.2 27.0 - 11/17 The 31.0 [place] HEMATOLOGY Hgb 12.5 14.0 - 11/17 The 18.0 [place] HEMATOLOGY WBC 7.7 3.7 - 10.4 11/17 The [place] HEMATOLOGY RBC 3.77 4.70 - 11/17 The 6.10 [place] HEMATOLOGY RDW 14.0 11.5 - 11/17 The 14.5 [place] HEMATOLOGY Platelet 155 133 - 450 11/17 The [place] HEMATOLOGY MPV 7.7 7.4 - 10.4 11/17 The [place] HEMATOLOGY MCHC 34.0 32.0 - 11/17 The 36.0 [place] HEMATOLOGY Segs-Bands # 5.7 1.5 - 8.1 11/17 The [place] HEMATOLOGY Eosinophils 4.3 0.0 - 4.0 11/17 The [place] HEMATOLOGY Basophils # 0.0 0.0 - 0.2 11/17 The [place] HEMATOLOGY Basophils 0.3 0.0 - 1.0 11/17 The [place] HEMATOLOGY Monocytes 5.1 2.0 - 12.0 11/17 The [place] HEMATOLOGY Lymphocytes 16.3 20.0 - 11/17 The 40.0 [place] HEMATOLOGY Lymphocytes 1.2 1.0 - 5.5 11/17 The [place] HEMATOLOGY Eosinophils 0.3 0.0 - 0.5 11/17 The # [place] HEMATOLOGY Monocytes # 0.4 0.0 - 0.8 11/17 The [place] HEMATOLOGY Segs 74.0 45.0 - 11/17 The 75.0 [place] TOXICOLOGY Vanco Tr TND unknown 11/17 The [place] TOXICOLOGY Vanco Tr 24.4 11/17 <sup>6</sup>I nterpretive [place] Data: Therapeutic Range:
Trough: 10 - 20 ug/mL
Peak: 20 - 40 ug/mL
Potential Toxicity: >80 ug/mL CHEM PANEL eGFR 54 11/13 <sup>3</sup>R [facility] Comment: The eGFR is calculated using the [...] Creatinine 1.5 0.5 - 1.4 11/13 The [place] CHEM PANEL BUN 11 7 - 22 11/13 [place] ELECTROLYT Potassium 4.5 3.5 - 5.1 11/13 The [place] HEMATOLOGY MCH 32.7 27.0 - 11/13 The 31.0 [place] HEMATOLOGY MCHC 33.6 32.0 - 11/13 The 36.0 [place] HEMATOLOGY Platelet 186 133 - 450 11/13 [place] HEMATOLOGY RDW 14.0 11.5 - 11/13 The 14.5 [place] HEMATOLOGY MPV 7.4 7.4 - 10.4 11/13 [place] HEMATOLOGY Hgb 12.2 14.0 - 11/13 The 18.0 [place] HEMATOLOGY RBC 3.73 4.70 - 11/13 The 6.10 [place] HEMATOLOGY MCV 97.6 80.0 - 11/13 The 94.0 [place] HEMATOLOGY Hct 36.4 42.0 - 11/13 The 54.0 [place] HEMATOLOGY WBC 9.7 3.7 - 10.4 11/13 [place] HEMATOLOGY Basophils # 0.1 0.0 - 0.2 11/13 [place] HEMATOLOGY Lymphocytes 2.0 1.0 - 5.5 11/13 The # [place] HEMATOLOGY Monocytes # 0.7 0.0 - 0.8 11/13 The [place] HEMATOLOGY Eosinophils 0.4 0.0 - 0.5 11/13 The [place] HEMATOLOGY Basophils 0.6 0.0 - 1.0 11/13 The [place] HEMATOLOGY Segs-Bands # 6.6 1.5 - 8.1 11/13 The [place] HEMATOLOGY Lymphocytes 20.5 20.0 - 11/13 The 40.0 [place] HEMATOLOGY Monocytes 7.3 2.0 - 12.0 11/13 The [place] HEMATOLOGY Eosinophils 3.7 0.0 - 4.0 11/13 The [place] HEMATOLOGY Segs 67.9 45.0 - 11/13 The 75.0 [place] TOXICOLOGY Vanco Tr TND NA 11/13 The [place] TOXICOLOGY Vanco Tr 24.1 11/13 <sup>7</sup>I nterpretive [place] Data: Therapeutic Range:
Trough: 10 - 20 ug/mL
Peak: 20 - 40 ug/mL
Potential Toxicity: >80 ug/mL Pathology Reports No Data Provided for This Section Diagnostic Reports Report Value Date Source Ext Lower Venous Doppler Study: Ext Lower Venous Dopp ler Bil US 03/13/2016 11:06 PM CDT 03/13/2016 [facility] Ordering Physician: Blanche Diaz MD Clinical Indication: [...] no evidence for deep venous thrombosis. SL: [id number] Chest 1view DX Study: Chest 1view DX 03/13/2016 11:18 PM CDT [facility] Ordering Physician: Blanche Diaz MD [...] no pneumothorax. No acute cardiopulmonary disease. SL: [id number] Chest 1view DX Clinical Indication: Fever; 02/15/2016 [facility] Comparison: 02/15/2015 FINDINGS: AP chest radiographs shows n ormal lung volumes without interstitial or airspace opacities, pleural effusions or pneumothorax. The heart size and pulmonary vasculature are normal. The trachea is midline. There are no clinically significant osseous abnormalities noted. IMPRESSION: No chest radiographic evidence of acute cardiopu lmonary disease. SL: [id number] Foot series DX Clinical Indication: Pain and swelling. Post robert luanne. 02/13/2016 [facility] Comparison: 01/31/2016. FINDINGS: The 4 [...] post transmetatarsal amputation, as noted above. SL: [id number] Abdominal Aorta with Clinical Indication: Gangrene; right fo ot gangrene. 02/03/2016 [facility] runoff CTA Comparison: None TECHNIQUE: [...] 5th MCP is concerning for osteomyelitis. SL: [id number] Retroperitoneal limited Clinical Indication: Renal insufficiency 02/01/2016 [facility] US Comparison: None TECHNIQUE: Multiple [...] with hematuria or urinary tract infection. SL: [id number] Ext Lower Arterial Clinical Indication: Right leg claudicat ion and leg ulcer. 01/31/2016 [facility] Doppler unilat US Comparison: None TECHNIQUE: Sonographic evalu ation of the right lower extremity arteries was performed with grayscale and color Doppler imaging with standard technique. 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 SFA: Monophasic waveforms. S pectral broadening. Mildly decreased peak systolic velocities. This may be related to collateral flow. POP: Monophasic waveforms. S pectral broadening with moderately decreased peak systolic velocities. TOBACCO WEIGHER: Monophasic waveforms. S pectral broadening with severely [...] or conventional angiography for complete assessment. SL: [id number] Foot series DX Clinical Indication: Pain an d swelling , status post amputation 4 years ago 01/31/2016 [facility] Comparison: None FINDINGS: 3 views [...] the right foot may be beneficial. SL: [id number] Chest 2 views DX NAME: REMEDIOS SANCHEZ 02/15/2015 [facility] : 1965 SEX: M 78 Ordering Physician: [...] Wrist complete DX NAME: REMEDIOS SANCHEZ 02/09/2015 [facility] : 1965 SEX: M 78 Ordering Physician: [...] contrast CT Name: REMEDIOS SANCHEZ 01/23/2015 [facility] : 1965 SEX: M Ordering Physician: Tim [...] Comments Source Systolic (mm Hg) 84 04/05/2016 [facility] Diastolic (mm Hg) 47 04/05/2016 [facility] [place] Respitory Rate 18 04/05/2016 [facility] Heart Rate 76 04/05/2016 [facility] Systolic (mm Hg) 80 04/05/2016 [facility] Diastolic (mm Hg) 49 04/05/2016 [facility] [place] Respitory Rate 18 04/05/2016 [facility] Heart Rate 73 04/05/2016 [facility] [place] [facility] Respitory Rate 18 04/05/2016 [facility] [place] Heart Rate 72 04/05/2016 [facility] [place] [facility] Systolic (mm Hg) 79 04/05/2016 [facility] [place] Diastolic (mm Hg) 42 04/05/2016 [facility] [place] Temperature Oral (F) 97.7 F 04/05/2016 [place] Temperature Oral (F) 97.7 F 04/05/2016 [place] Temperature Oral (F) 98.2 F 04/05/2016 [place] Weight 98.6 04/05/2016 [facility] [place] [facility] BMI Calculated 28.81 04/05/2016 [facility] [place] Height 185 cm 04/05/2016 [facility] [place] [facility] Respitory Rate 18 03/14/2016 [facility] [place] Systolic (mm Hg) 119 03/14/2016 [facility] [place] Diastolic (mm Hg) 63 03/14/2016 [facility] [place] Systolic (mm Hg) 124 03/14/2016 [facility] [place] Diastolic (mm Hg) 58 03/14/2016 [facility] [place] Respitory Rate 16 03/14/2016 [facility] [place] Temperature Oral (F) 98.8 F 03/14/2016 [place] Respitory Rate 18 03/14/2016 [facility] [place] Systolic (mm Hg) 129 03/14/2016 [facility] [place] Diastolic (mm Hg) 62 03/14/2016 [facility] [place] Temperature Oral (F) 98.7 F 03/14/2016 [place] Heart Rate 95 03/14/2016 [facility] [place] [facility] BMI Calculated 28.69 03/13/2016 [facility] [place] Weight 98.636 03/13/2016 [facility] [place] [facility] Temperature Oral (F) 98.6 F 03/13/2016 [place] Height 185.42 cm 03/13/2016 [facility] [place] [facility] Heart Rate 105 03/13/2016 [facility] [place] [facility] Heart Rate 111 02/18/2016 [facility] [place] [facility] Temperature Oral (F) 98.8 F 02/18/2016 [place] Respitory Rate 18 02/18/2016 [facility] [place] Systolic (mm Hg) 110 02/18/2016 [facility] [place] Diastolic (mm Hg) 56 02/18/2016 [facility] [place] Temperature Oral (F) 98.3 F 02/18/2016 [place] Heart Rate 97 02/18/2016 [facility] [place] [facility] Systolic (mm Hg) 94 02/18/2016 [facility] [place] Diastolic (mm Hg) 56 02/18/2016 [facility] [place] Respitory Rate 18 02/18/2016 [facility] [place] Temperature Oral (F) 98.2 F 02/18/2016 [place] Heart Rate 86 02/18/2016 [facility] [place] [facility] Systolic (mm Hg) 112 02/18/2016 [facility] [place] Diastolic (mm Hg) 54 02/18/2016 [facility] [place] Respitory Rate 18 02/18/2016 [facility] [place] Weight 96.023 02/08/2016 [facility] [place] [facility] BMI Calculated 28.69 02/08/2016 [facility] [place] Weight 98.636 02/08/2016 [facility] [place] [facility] Height 185.42 cm 02/08/2016 [facility] [place] [facility] Weight 97.273 02/01/2016 [facility] [place] [facility] BMI Calculated 28.29 02/01/2016 [facility] [place] Height 185.42 cm 02/01/2016 [facility] [place] [facility] Height 185.42 cm 01/31/2016 [facility] [place] [facility] BMI Calculated 27.63 01/31/2016 [facility] [place] Respitory Rate 16 02/16/2015 [facility] [place] Temperature Oral (F) 98.0 F 02/16/2015 [place] Respitory Rate 18 02/16/2015 [facility] [place] Heart Rate 77 02/16/2015 [facility] [place] [facility] Systolic (mm Hg) 175 02/16/2015 [facility] [place] Diastolic (mm Hg) 94 02/16/2015 [facility] [place] Temperature Oral (F) 98.2 F 02/16/2015 [place] Heart Rate 74 02/16/2015 [facility] [place] [facility] Systolic (mm Hg) 164 02/16/2015 [facility] [place] Diastolic (mm Hg) 89 02/16/2015 [facility] [place] Respitory Rate 18 02/16/2015 [facility] [place] Temperature Oral (F) 97.5 F 02/16/2015 [place] Systolic (mm Hg) 145 02/16/2015 [facility] [place] Diastolic (mm Hg) 83 02/16/2015 [facility] [place] Heart Rate 72 02/16/2015 [facility] [place] [facility] Height 185.42 cm 02/16/2015 [facility] [place] [facility] BMI Calculated 28.58 02/16/2015 [facility] [place] Weight 98.267 02/16/2015 [facility] [place] [facility] Weight 13.636 02/15/2015 [facility] [place] [facility] BMI Calculated 3.97 02/15/2015 [facility] [place] [facility] Height 185.42 cm 02/15/2015 [facility] [place] [facility] Temperature Oral (F) 98.2 F 02/09/2015 [place] Heart Rate 88 02/09/2015 [facility] [place] [facility] Respitory Rate 18 02/09/2015 [facility] [place] Systolic (mm Hg) 173 02/09/2015 [facility] [place] Diastolic (mm Hg) 82 02/09/2015 [facility] [place] BMI Calculated 31.47 02/09/2015 [facility] [place] Weight 108.182 02/09/2015 [facility] [place] [facility] Height 185.42 cm 02/09/2015 [facility] [place] [facility] Systolic (mm Hg) 189 02/09/2015 [facility] [place] Diastolic (mm Hg) 97 02/09/2015 [facility] [place] Heart Rate 77 02/09/2015 [facility] [place] [facility] Respitory Rate 16 02/09/2015 [facility] [place] [...] [facility] [place] Weight 104.545 01/23/2015 [facility] [place] [facility] Height 185.42 cm 01/23/2015 [facility] [place] [facility] BMI Calculated 30.41 01/23/2015 [facility] [place] Respitory Rate 18 01/23/2015 [facility] [place] Heart Rate 92 01/23/2015 [facility] Temperature Oral (F) 98.5 F 01/23/2015 [facility] Encounters Location Location Encounter Encounter Reason Attending ADM DC Stat us Source Details Type Number For Provider Date Date Visit Memorial OP Recurring [id number] Nabeel 10/31 11/30 [facility] [place] /2013 [facility] EC Emergency [id number] Edozie 01/23 01/23 [facility] [place] /2014 [facility] d [facility] EC Emergency [id number] Az Townley 02/09 02/09 [facility] /2014 [facility] OBS [id number] Juan 02/15 02/16 [facility] [place] /2014 [facility] The Patient [facility] Inpatient [id number] Abbas 01/30 02/17 [facility] Emergency [id number] Blanche 03/13 03/14 [facility] [place] /2015 [facility] Outpatient [id number] Abbas 04/05 04/06 [facility] /2015 [facility] Procedures Procedure Code Date Perfomer Comments Source Amputation of toe [id number] [facility] Amputation of [id number] 2 toes The toe<sup>1</sup> [place] Blood transfusion [id number] [facility] Assessment and Plan Assessment and Plan Date Source Extracted from:Title: id 02/18/2016 [facility] Author: Rogerio Ruggiero DO Date: 02/18/16 Impression and Plan The patient was seen and examined by me with the resident/INDUSTRIAL ENG/PA and I agree with the History/Exam documented. Extracted from:Title: Dr. Eugene Podiatry Consultation Author: Lise Eugene DPM Date: 02/10/16 Impression and Plan Diagnosis Gangrene of foot ([id number] [id number], Working, Medical). PVD (peripheral vascular disease) ([id number] I73.9, Working, Medical). Course: Worsening. - PLAN [...] for assistance Extracted from:Title: Consult Note 02/16/2015 [facility] Author: Foreign Toscano MD Date: 02/16/15 Assessment/Plan [...] History Date Source Social History TypeResponse 10/21/2013 [facility] Substance Abuse Previous Treatment: None. [...]
--- OUTSIDE RECORDS SUMMARY | 2020-03-04 01:22 | XMS REPORT | Continuity of Care Document ---
:1965 Author Organization [facility] t Address [address] [place] [address] Care Team Providers Name Role Phone Janette POSADAS Attending Clinician JANETTE Attending Clinician Unavailable ARIF Attending Clinician Unavailable SANTIAGO SEGURA Attending Clinician Unavailable Jeff Pierce Attending Clinician Joseph Diaz Attending Clinician Unavailable Mike Torres Attending Clinician Sundar Warner Attending Clinician Anatoliy Fry Attending Clinician Hermes Gleason Attending Clinician ARIF Admitting Clinician Unavailable SANTIAGO ESGURA Admitting Clinician Unavailable Jeff Pierce Admitting Clinician Mike Torres Admitting Clinician Payers Payer Name Policy Type Policy Number Effective Date Expiration Date S briseida AETNA - MEDICARE MGD [id number] [facility] CAREAETNA MEDICARE [facility] - O POSxxxxxxxxMaps Medic al [id number] [address] CDC REVIEWCDC xxxxxxxx [facility] REVIEW[facility]PO [facility] [id number] Center Problems Condition Condition Condition Status Onset Resolution Last Treating Co mments Source Name Details Category Date Date Treatment Clinician Date Metabolic Metabolic Disease Active 2016-[address] [facility] acidosis acidosis 06-20 [facility] H/O ETOH H/O ETOH Disease Active 2016[facility] Acute Acute Disease Active 2016-[address] [facility] kidney kidney 06-17 [facility] injury injury 00:00: Medical 00 [place] Hypertensi Hypertensi Disease Active 2016-[address] on, on, 06-17 [facility] - essential essential 00:00: Medi mari 00 Center Leukocytos Leukocytos Disease Active 2016-[address] is is 06-17 [facility] Tongue Tongue Disease Active 2016-[address] [facility] laceration laceration 06-17 Evelyn kes - 00:00: Medical 00 [place] Status Status Disease Active 2016-[address] [facility] epilepticu epilepticu 06-16 Evelyn kes - s s 00:00: Medical 00 Center ANEMIA Diagnosis Active 2015-052016-04-05 Mem oria 06-04 09:38:00 l ANEMIA 00:00: [place] 00 Active 04/04/2016 [facility] OTHER Diagnosis Active 2015-052016-03-13 Mem oria 19:39:00 l OTHER 00:00: [place] 00 Active 03/13/2016 [facility] LEFT FOOT Diagnosis Active 2016-01-31 Memoria SORES 01-30 22:38:00 l LEFT 00:00: [place] FOOT SORES 00 Active 01/31/2016 [facility] FOOT Diagnosis Active 2016-02-12 Mem oria GANGRENE 01-30 20:08:00 l FOOT 00:00: [place] GANGRENE 00 Active 01/31/2016 [facility] CHEST PAIN Diagnosis Active 2015-02-15 Memoria 02-15 18:21:00 l CHEST 00:00: Kai PAIN 00 Active 02/15/2015 [facility] CP Diagnosis Active 2015-02-15 Mem oria 02-15 16:10:00 l CP 00:00: Kai 00 Active 02/15/2015 [facility] LEFT WRIST Diagnosis Active 2015-0 2015-02-09 [facility]oria PAIN 9-15 16:02:00 l LEFT 00:00: [place] WRIST PAIN 00 Active 02/09/2015 [place] AMS Diagnosis Active 2015-01-23 Mem oria 01-23 15:36:00 l AMS 00:00: [place] 00 Active 01/23/2015 [facility] WOUND Diagnosis Active 2014-02-12 Mem oria INFECTION 10-20 13:06:00 l V WOUND 00:00: [place] NECFAS;CHR INFECTION 00 ONIC V OSTEOMY NECFAS;CHR ONIC OSTEOMY Active 10/20/2013 [facility] Acute Problem Active 2016-04-08 Memor ia osteomyeli 03:42:03 l tis Acute Kai (disorder) osteomyeli tis (disorder) Active Problem 04/08/2016 [place] Congestive Problem Active 2016-04-08 M emoria heart 03:42:03 l failure [place] (disorder) Congestive heart failure (disorder) Active Problem 04/08/2016 [place] Hypertensi Problem Active 2016-04-08 M emoria ve 03:42:03 l disorder, Kai systemic Hypertensi arterial ve (disorder) disorder,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 (disorder) Active Problem 04/08/2016 [place] Bronchitis Problem Active 2016-04-08 M emoria (disorder) 03:42:03 l Kai Bronchitis (disorder) Active Problem 04/08/2016 [facility] Chronic Problem Active 2016-04-08 Ed bandar obstructiv 03:42:03 l e lung Chronic [place] disease obstructiv (disorder) e lung disease (disorder) Active Problem 04/08/2016 [place] Epistaxis Problem Active 2016-04-08 Me moria (disorder) 03:42:03 l [place] Epistaxis (disorder) Active Problem 04/08/2016 [place] Seizure Problem Active 2016-04-08 Ed bandar (finding) 03:42:03 l Seizure Kai (finding) Active Problem 04/08/2016 [facility] History of Problem Active 2016-04-08 M emoria - 03:42:03 l infectious History Her cook disease of - (context-d infectious ependent disease category) (context-d ependent category) Active Problem 04/08/2016 [place] History of Problem Active 2016-04-08 M emoria amputation 03:42:03 l of lesser History Herm delisa toe of (situation amputation ) of lesser toe (situation ) Active Problem 04/08/2016 [facility] History of Problem Active 2016-04-08 M emoria - 03:42:03 l cardiovasc History Her cook ular of - disease cardiovasc (context-d ular ependent disease category) (context-d ependent category) Active Problem 04/08/2016 [facility] Benign Problem Active 2016-04-08 Memor ia prostatic 03:42:03 l hyperplasi Benign Herm delisa a prostatic (disorder) hyperplasi a (disorder) Active Problem 04/08/2016 [facility] CELLULITIS Diagnosis Active 2014-02-12 Memoria OF FOOT 13:06:00 l Kai CELLULITIS OF FOOT Active [facility] AC Diagnosis Active 2014-02-12 Mem oria OSTEOMYELI 13:06:00 l TIS-UNSPEC AC Raudel n OSTEOMYELI TIS-UNSPEC Active [facility] CHEST PAIN Diagnosis Active 2015-02-15 Memoria NOS 18:21:00 l CHEST Kai PAIN NOS Active [facility] GANGRENE, Diagnosis Active 2016-02-12 Memoria NOT 20:08:00 l ELSEWHERE Kai CLASSIFIED GANGRENE, NOT ELSEWHERE CLASSIFIED Active [facility] ANEMIA, Diagnosis Active 2016-04-05 Me moria UNSPECIFIE 09:38:00 l D ANEMIA, Kai UNSPECIFIE D Active [facility] Discharge Problem 2015-052016-03-17 2016-03-17 Memoria Diagnosis: 0-18 03:02:37 03:02:37 l Acute on 05:00: [place] chronic Discharge 00 renal Diagnosis: failure Acute on chronic renal failure 03/14/2016 03/17/2016 [facility] Discharge Problem 2015-052016-03-17 2016-03-17 Memoria Diagnosis: 0-18 03:02:37 03:02:37 l Anemia 05:00: Kai Discharge 00 Diagnosis: Anemia 03/14/2016 03/17/2016 [facility] Discharge Problem 2015-052016-03-17 2016-03-17 Memoria Diagnosis: 0- 03:02:37 03:02:37 l Post-opera 05:00: Raudel n tive pain Discharge 00 Diagnosis: Post-opera tive pain 03/14/2016 03/17/2016 [facility] Discharge Problem 2015-052016-03-17 2016-03-17 Memoria Diagnosis: 0- 03:02:37 03:02:37 l Acute 05:00: Kai hypokalemi Discharge 00 a Diagnosis: Acute hypokalemi a 03/14/2016 03/17/2016 [facility] Discharge Problem 2015-02-19 2015-02-19 Memoria Diagnosis: 02-16 07:51:51 07:51:51 l Hyperlipid 14:36: Raudel n emia Discharge 09 Diagnosis: Hyperlipid emia 02/16/2015 02/19/2015 [facility] Discharge Problem 2015-02-19 2015-02-19 Memoria Diagnosis: 02-16 07:51:51 07:51:51 l Hypertensi 14:36: Raudel n on Discharge 00 Diagnosis: Hypertensi on 02/16/2015 02/19/2015 [facility] Discharge Problem 2015-02-19 2015-02-19 Memoria Diagnosis: 02-16 07:51:51 07:51:51 l Angina 14:35: [place] pectoris Discharge 54 Diagnosis: Angina pectoris 5 02/19/2015 [facility] Discharge Problem 2015-02-12 2015-02-12 Memoria Diagnosis: 02-09 09:59:31 09:59:31 l Wrist 05:00: [place] sprain Discharge 00 Diagnosis: Wrist sprain 02/09/2015 02/12/2015 [facility] Discharge Problem 2015-01-26 2015-01-26 Memoria Diagnosis: 01-23 02:07:27 02:07:27 l Epileptic 05:00: [place] seizure, Discharge 00 generalize Diagnosis: d Epileptic seizure, generalize d 01/23/2015 01/26/2015 [facility] Discharge Problem 2015-01-26 2015-01-26 Memoria Diagnosis: 01-23 02:07:27 02:07:27 l Cerebral 05:00: [place] seizure Discharge 00 Diagnosis: Cerebral seizure 01/23/2015 01/26/2015 [facility] Allergies, Adverse Reactions, Alerts Allergy Allergy Status Severity Reaction(s) Onset Inactive Treating Comm ents Source Name Type Date Date Clinician No Known DA Active U 2018-05 [facility] Allergie 0-10 [facility] 00:00: [facility] [address] Morphine Propensi Active Other (See 2016-[address] ty to Comments) 06-16 [facility] - adverse 00:00: Medical reaction 00 Center s morphine morphine Active [facility] Social History Social Habit Start Date Stop Date Quantity Comments Source Sex Assigned At [facility] Cigarettes smoked 2017-04-16 2017-04-16 [facility] - current (pack per 00:00:00 00:00:00 Medical Center day) - Reported Social History 2013-10-21 2013-10-21 [facility] 05:36:39 05:36:39 Smoking Status Start Date Stop Date Source Current every day smoker 2017-04-16 00:00:00 [facility] Medications Ordered Filled Start Stop Current Ordering Indication Dosage Frequency Signature Comments Components Source Medication Medication Date Date Medication? Clinician (SIG) Name Name acetaminoph 2020- No 1{tbl} Take [address] en-codeine 801-05 tablet by Beau es - (TYLENOL 00:00: 23:59 mouth Medical #3) 300-30 00 :00 every 6 Center mg per (six) tablet hours as needed for Pain for up to 4 days. Max Daily Amount: 4 tablets folic acid 2019- No 1mg QD Take [address] (FOLVITE) 1 5-20 05-19 tablet (1 Evelyn kes - MG tablet 00:00: 23:59 mg total) Me dical 00 :00 by mouth Center daily. thiamine 2020- No 100mg QD Take 1 [facility] 100 MG 5-20 05-19 tablet [facility] - tablet 00:00: 23:59 (100 mg Medical 00 :00 total) by Center mouth daily. levETIRAcet 2020- No 1000mg Q.5D Take [address] am (KEPPRA) 5-20 05-19 tablet [facility] - 1000 MG 00:00: 23:59 (1,000 mg Medi mari tablet 00 :00 total) by Center mouth 2 (two) times daily. lovastatin Yes 20mg QD Take [address] (MEVACOR) 5-19 by mouth [facility] - 20 MG 09:38: nightly. Medical tablet 15 [place] aspirin/shawn Yes 2{packe Take [address] icylamide/c 5-19 t} packets by Evelyn magana ( 09:38: mouth Medic al HEADACHE 15 daily as Center POWDER needed ORAL) (For headache and pain relief). VENTOLIN Yes 1{puff} Inhale [address] HFA 90 4- puff by [facility] - mcg/actuati 00:00: mouth via M edical on inhaler 00 inhaler 3 Cent er (three) times daily as needed for Shortness of Breath. lisinopril Yes 10mg QD Take [address] (PRINIVIL,Z 4-01 by mouth Luke s - ESTRIL) 10 00:00: daily. Medic al MG tablet 00 [place] amLODIPine Yes 10mg QD Take [address] (NORVASC) 4 by mouth [facility] - 10 MG 00:00: daily. Medical tablet 00 [place] Sodium 2015-05 Yes IVPB, 150 Memori a Chloride 1-09 ml/hr, l 0.9% IV 14:00: PRN, Start Herm delisa 00 date: 04/05/16 8:00:00 SOLUTION [employer]KER, Duration: 30, 1,000 ml EPINEPHrine 2015-05 Yes Notes: Memoria - MEDICATION l 13:22: WASTE Product Size: 1 mg Product Wasted: ___ mg Solu-CORTEF 2015-05 Yes Notes: Ed bandar - (Same as: l 13:22: Solu-JOHN F) Benadryl 2015-05 Yes Notes: Memoria 1-09 (Same as: l 13:22: Benadryl) [place] Sodium 2015-05 Yes IV, 0 Memoria Chloride 1-09 ml/hr, l 0.9% IV 13:21: PRN, PRN Raudel n Blood Transfusio n, Start date: 04/05/16 7:21:00 SOLUTION MAKER, Duration: 30, 250 ml heparin 2015-05 Yes Notes: Memoria flush - (Same as: l 13:21: Heparin Kai 00 Lock Flush) BD Normal 2015-05 Yes Notes: Memori a Saline -09 (Same as: l Flush 13:21: BD [place] 00 Posiflush) Benadryl 2015-05 Yes Notes: Memoria 06-05 (Same as: l 13:21: Benadryl) Kai Tylenol 2015-05 Yes Notes: Do Memor ia 06-05 not exceed l 13:20: 4 gm/day. [place] 00 (Same as: Tylenol) Acetaminoph 2015-05 No Notes: Ed bandar en 325 MG / 0-18 (Same as: l Hydrocodone 11:34: [facility] Denita nn Bitartrate 00 325/5) Do 5 MG Oral not exceed Tablet 4gm/day of [[facility] acetaminop 5/325] hen. Acetaminoph 2015-05 No 1 tab, PO, Memoria en 300 MG / 0-18 Q4H, PRN l Codeine 09:54: Pain, X 2 Denita nn Phosphate 00 day, # 12 30 MG Oral tab, 0 Tablet Refill(s) [Tylenol with Codeine #3] Zofran 2015-05 No Notes: Memoria 0-18 (Same as: l 04:18: Zofran) Kai MEDICATION WASTE Product Size: 4 mg Product Wasted: ___ mg Dilaudid 2015-05 No Notes: Memoria 0-18 Same as: l 04:18: Dilaudid [place] 00 Sodium 2015-05 No 500 mL, Memoria Chloride 0-18 500 ml/hr, l 0.154 04:18: Infuse Kai MEQ/ML 00 Over: 1 Injectable hr, Route: Solution IV, 500, Drug form: INJ, ONCE, Priority: STAT, Dosing Weight 98.636 kg, Start date: 03/13/16 23:18:00 CDT, Duration: 1 doses or times, Stop date: 03/13/16 23:18:00 CDT Oxycodone Yes 15 mg = 3 Mem oria Hydrochlori 9-23 tab, PO, l de 5 MG 17:22: Q4H, PRN Raudel n Oral Tablet 00 Pain Score 7-10, 0 Refill(s) Oxycodone No Notes: Memori a Hydrochlori -23 (Same as: l de 5 MG 13:43: Roxicodone Herm delisa Oral Tablet 00 ) Ceftriaxone No Notes: Ed bandar 02-16 (Same As: l 20:00: Rocephin). Kai 00 Use with 100 mL [...] oral 02-16 tab, PO, l tablet 12:57: [id number], 0 Denita nn 00 Refill(s) pantoprazol Yes 40 mg = 1 M emoria e 40 mg 02-16 tab, PO, l oral 12:57: Before [place] enteric 00 Breakfast, coated 0 tablet Refill(s) Acetaminoph Yes 1 tab, PO, Memoria en 325 MG / 02-16 Q4H, PRN l Hydrocodone 12:57: Pain Score Kai Bitartrate 00 1-3, 0 5 MG Oral Refill(s) Tablet cefTRIAXone No Notes: Ed bandar + sodium 02-14 (Same As: l chloride 23:00: Rocephin). Her cook 0.9% INJ Use with 100 mL 100 mL NS and infuse over 30 min MEDICATION WASTE Product Size: 2000 mg Product Wasted: ___ mg Flomax No Notes: Memoria 02-12 (Same As: l 22:00: Flomax) Kai 00 "Do Not Crush" vancomycin No 2001 mg: Me moria + sodium 02-12 infuse l chloride 11:00: over 2.5 Denita [...] bandar 02-10 (Same As: l 18:00: Rocephin). Use with 100 mL NS and infuse over 30 min MEDICATION WASTE Product Size: 2000 mg Product Wasted: ___ mg Dilaudid No Notes: Memoria 02-10 Same as: l 13:37: Dilaudid vancomycin No 2000 mg: Me moria 16 infuse l 11:00: over 2.5 Kai 00 hours metoprolol No Notes: Memor ia 15 (Same as: l 14:00: Toprol XL) May split tab, but do not crush. Alprazolam No Notes: Memor ia 1 MG Oral 15 With food l Tablet 13:19: or milk [Xanax] (Same as: Xanax) vancomycin No 2000 mg: Me moria -15 infuse l 10:00: over 2.5 Kai 00 hours Anoro 0 No Anoro Memoria 62.5mcg/25 02-09 62.5mcg/25 l mcg 01:00: mcg, 1 puff, Route: INHALATION , RBID, 02/09/16 20:00:00 [...] Dosing per l RPh 19:51: RPh, ., [place] 00 Drug form: MISC, Route: MISC, PRN, PRN Other -See Comment, 02/09/16 14:51:00 CDT, Duration: 30 day, Stop date: 03/10/16 14:50:00 CDT Dilaudid No Notes: Memoria 02-08 Same as: l 18:01: Dilaudid Kai 00 Sodium No 500 mL, Memoria Chloride 02-08 500 ml/hr, l 0.154 17:59: Infuse [place] MEQ/ML 00 Over: 1 Injectable hr, Route: Solution IV, 500, Drug form: INJ, ONCE, Priority: STAT, Dosing Weight 96.023 kg, Start date: 02/09/16 12:59:00 CDT, Duration: 1 doses or times, Stop date: 02/09/16 12:59:00 CDT pantoprazol No Notes: Ed bandar e 02-08 Tablet l 14:00: should not Kai 00 be chewed or crushed. (Same as: Protonix) chlorhexidi No Notes: Ed bandar ne 02-08 (Same As: l gluconate 14:00: Hibiclens) He rmann 40 MG/ML 00 Medicated Liquid Soap Simvastatin No Notes: Ed bandar 02-08 (Same as: l 02:00: Zocor) [place] Cefuroxime No 1.5 gm, Ed bandar 02-08 Route: l 02:00: IVPB, [place] 00 ABXQ8H, Dosing Weight 96.023, kg, Start date: 02/08/16 21:00:00 CDT, Duration: 3 doses or times, Stop date: 02/09/16 13:00:00 CDT Neutra-Phos No Notes: Ed bandar 9-14 Same as: l 01:04: Phos-Nak Kai 00 Mix 1 packet with 75 mL water or juice. Each packet has 160mg of sodium, 280mg of potassium, and 250mg of phosphorus Non-Formu puneet Item potassium No Notes: Memori a phosphate + 9-14 (Same as: l sodium 01:04: K [place] chloride 00 Phosphate. 0.9% 500 ml ) 1 mMol INJ 500 mL phoshate has 1.47 mEq potassium Infuse over 4 hours potassium No Notes: Memori a phosphate + 9-14 (Same as: l sodium 01:04: K Kai chloride 00 Phosphate. 0.9% INJ ) 1 mMol 250 mL phoshate has 1.47 mEq potassium Infuse over 4 hours Magnesium No Notes: Memori a Oxide 02-08 (Same as: l 01:04: Mag-Ox [place] 00 400) Magnesium oxide 203bb=293s g elemental magnesium Dose=____m g magnesium oxide (___mg elemental magnesium) Magnesium No Notes: Memori a Sulfate 02-08 WASTE: F/P l 01:04: - Sink; E [place] 00 - Municipal Trash Bin potassium No Notes: Memori a chloride 14 (Same as: l 01:04: Potassium [place] 00 Chloride) sodium No 15 mmol, 5 [...] 9-14 15 mL, l sodium 01:04: Route: [place] chloride 00 IVPB, Drug 0.9% 500 ml form: INJ, INJ 500 mL PRN, Dosing Weight 96.023, kg, PRN Abnormal Lab Result, Start date: 02/08/16 20:04:00 CDT, Duration: 30 day, Stop date: 03/09/16 20:03:00 CDT, FOR ICU USE ONLY Calcium No Notes: Memoria Carbonate 02-08 (Same As: l 500 MG 01:04: Tums) Kai Chewable 00 Calcium Tablet Carbonate 500 mg = 200 mg elemental calcium Dose = mg calcium carbonate ( mg elemental calcium) Calcium No Notes: Memoria Gluconate 02-08 WASTE: F/P l 01:04: - Sink; E Kai 00 - Municipal Trash Bin Albuterol No Notes: SEE Me moria 0.83 MG/ML 02-08 RT l Inhalant 01:04: DOCUMENTAT Her cook Solution 00 ION (Same as: Proventil) Dextrose No 25 gm, 50 Ed bandar 50% Syringe 02-08 mL, Route: l 01:04: IVP, Drug [place] 00 Form: INJ, Dosing Weight 96.023, kg, PRN, PRN Blood Glucose Results, Start date: 02/08/16 20:04:00 CDT, Duration: 30 day, Stop date: 03/09/16 20:03:00 CDT Docusate No Notes: Memoria 02-08 (Same as: l 01:04: Colace) [place] (Do Not Crush) Glucagon No 1 mg, Memoria 02-08 Route: IM, l 01:04: Drug form: [place] 00 PDR/INJ, PRN, Dosing Weight 96.023, kg, PRN Blood Glucose Results, Start date: 02/08/16 20:04:00 CDT, Duration: 30 day, Stop date: 03/09/16 20:03:00 CDT Acetaminoph No Notes: Ed bandar en 325 MG / 02-08 (Same as: l Hydrocodone 01:04: [facility] Denita nn Bitartrate 00 325/5) Do 5 MG Oral not exceed Tablet 4gm/day of acetaminop hen. Acetaminoph No Notes: Do M emoria en 02-08 not exceed l 01:04: 4 gm/day. [place] 00 (Same as: Tylenol) D5W 1/2NS + No Notes: Ed bandar KCL 20mEq/L 02-08 PREMIX IV l 1000ml 01:04: - Do Not Kai (Premix) 00 Alter 1,000 mL WASTE: F/P - Sink; E - Municipal Trash Bin Ondansetron No Notes: Ed bandar 02-07 (Same as: l 14:59: Zofran) MEDICATION WASTE Product Size: 4 mg Product Wasted: ___ mg Promethazin No 6.25 mg, Me moria e 02-07 25 mL, l 14:59: Route: IVPB, Drug form: SOLN, ONCE, Dosing Weight 96.023, kg, PRN Nausea & Vomiting, Start date: 02/08/16 9:59:00 CDT Flumazenil No Notes: Memor ia 02-07 (Same as: l 14:59: Romazicon) Naloxone No Notes: Memoria 02-07 Same as l 14:59: Narcan Fentanyl No Notes: Memoria 02-07 (Same as: l 14:59: Sublimaze) Preservat vahid free. Hydromorpho No Notes: Ed bandar ne 02-07 Same as: l 14:59: Dilaudid Labetalol No 10 mg, 2 Ed bandar 13 mL, Route: l 14:59: IVP, Drug form: [...] INJ (ANES) 02-07 Total l 14:08: Volume: Kai 00 1,000, Start date: 02/08/16 9:08:00 CDT, Stop [...] 02/08/16 8:40:00 CDT midazolam No Route: IV, Me moria (ANES) 02-07 Drug form: l 13:40: SOLN, ONCE, Stop date: 02/08/16 8:40:00 CDT rocuronium No Route: IV, M emoria (ANES) 02-07 Drug form: l 13:40: INJ, ONCE, Stop date: 02/08/16 8:40:00 CDT piperacilli No IV, ONCE Me moria n-tazobacta 02-07 l m (ANES) 13:25: famotidine No Route: IV, M emoria (ANES) 02-07 Drug form: l 13:25: INJ, ONCE, Stop date: 02/08/16 8:25:00 CDT Rifadin IV No Notes: Memor ia 02-07 Child:10-2 l 12:00: 0mg/kg ,<= 00 600mg/day. Protect from light (Same as: Rifadin) Lidocaine No 5 mg, Memoria Hydrochlori 9-13 Route: l de 10 MG/ML 12:00: INTRADERM, Kai Injectable 00 Dosing Solution Weight 98.636, kg, ONCALL, Start date: 02/08/16 7:00:00 CDT, Duration: 30 day, Stop date: 03/09/16 6:59:00 CDT Lactated 2015-0 No 1,000 mL, Ed bandar Ringers 02-07 Rate: 40 l 1,000 mL 11:31: ml/hr, Kai 00 Infuse over: 25 hr, Route: IV, Dosing Weight 98.636 kg, Total Volume: 1,000, Start date: 02/08/16 6:31:00 CDT, Duration: 30 day, Stop date: 03/09/16 6:30:00 CDT Roxicodone 2015-0 No 15 mg, Memor ia 9- Route: PO, l 17:00: Drug form: Kai 00 TAB, Q4H, Start date: 02/07/16 12:00:00 CDT, Stop date: 03/08/16 8:00:00 CDT Roxicodone 2015-0 No Notes: Memor ia 9-12 (Same as: l 15:35: Roxicodone Kai 00 ) oxyCODONE 0 No 15 mg, Memori a 10 mg 9 Route: PO, l extended 23:00: Drug form: Her cook release 00 ERTAB, Q6H, Start date: 02/05/16 18:00:00 CDT, Duration: 30 day, Stop date: 03/06/16 12:00:00 CDT Roxicodone 2015-0 No Notes: Memor ia 9-10 (Same as: l 20:21: Roxicodone Kai ) Dilaudid 2015-0 No Notes: Memoria 9-10 Same as: l 20:04: Dilaudid [place] sodium 2015-0 No 1,000 mL, Memori a chloride 02-03 Rate: 50 l 0.9% 1000 16:14: ml/hr, Raudel n ml INJ 00 Infuse 1,000 mL over: 20 hr, Route: IV, Dosing Weight 97.273 kg, Total Volume: 1,000, Start date: 02/04/16 11:14:00 CDT, Stop date: 03/05/16 11:13:00 CDT vancomycin No 2001 mg: Me moria 02-01 infuse l 20:00: over 2.5 [place] 00 hours atorvastati No Notes: Ed bandar n 02-01 (Same as: l 02:00: Lipitor) Vancomycin No 1 ea, [place] a 01-31 Route: l 20:00: MISC, Dosing Weight 97.273, kg, ONCALL, Start date: 02/01/16 15:00:00 CDT, Duration: 1 doses or times, Pharmacy to dose Acetaminoph No Notes: Do M emoria en 325 MG / 01-31 not exceed l Hydrocodone 18:10: 4gm/day of Kai Bitartrate 00 acetaminop 10 MG Oral hen. Tablet (Same as: [[facility] 10/325] 325/10) Tylenol No Notes: Do Memor [...] 01-31 (Same as: l / 13:22: Duoneb) Kai Ipratropium 00 [place] 0.167 MG/ML Inhalant Solution Zofran No Notes: Memoria 01-31 (Same as: l 06:24: Zofran) Kai 00 MEDICATION WASTE Product Size: 4 mg Product Wasted: ___ mg Dilaudid No Notes: Memoria 01-31 Same as: l 06:23: Dilaudid [place] 00 Acetaminoph No 1 tab, PO, Memoria en 300 MG / 01-31 BID, PRN l Codeine 04:53: pain, # 28 Herm delisa Phosphate 00 tab, 0 30 MG Oral Refill(s) Tablet lisinopril Yes 10 mg = 1 Me moria 10 mg oral 01-31 tab, PO, l tablet 04:53: Daily, # Kai 00 30 tab, 0 Refill(s) metoprolol Yes [...] tab, PO, l tablet 04:53: Daily, # [place] 00 30 tab, 0 Refill(s) atorvastati Yes 40 mg = 1 M emoria n 40 mg 01-31 tab, PO, l oral tablet 04:53: Bedtime, # [place] 00 30 tab, 0 Refill(s) Anoro Yes 1 puff, Memoria Ellipta 01-31 INHALER, l 62.5 mcg-25 04:53: Daily, # 1 Kai mcg 00 ea, 3 inhalation Refill(s) powder Alprazolam Yes 2 mg = 1 Mem oria 2 MG Oral 01-31 tab, PO, l Tablet 04:53: BID, PRN Kai 00 Anxiety, # 20 tab, 0 Refill(s) [...] 01-31 Route: PO, l 03:28: Drug form: [place] 00 TAB, ONCE, Dosing Weight 95, kg, Priority: STAT, Start date: 01/31/16 22:28:00 CDT, Stop date: 01/31/16 22:28:00 CDT Piperacilli No Notes: Ed bandar n 01-30 (Same as: l tazobactam 22:57: Zosyn) Denita nn 00 Dosing based on Piperacill in component MEDICATION WASTE Product Size: 3375 mg Product Wasted: ___ mg Vancomycin No 2000 mg: Me moria 01-30 infuse l 22:57: over 2.5 Kai 00 hours MEDICATION WASTE Product Size: 1000 mg Product Wasted: ___ mg Sodium No 1,000 mL, Memori a Chloride 01-30 2,000 l 0.154 22:04: ml/hr, [place] MEQ/ML 00 Infuse Injectable Over: 30 Solution minutes, Route: IV, 1,000, Drug form: INJ, ONCE, Priority: STAT, Dosing Weight 95 kg, Start date: 01/31/16 17:04:00 CDT, Duration: 1 doses or times, Stop date: 01/31/16 17:04:00 CDT Acetaminoph No Notes: Do M emoria en 325 MG / 01-30 not exceed l Hydrocodone 21:57: 4gm/day of Bitartrate 00 acetaminop 10 MG Oral hen. Tablet (Same as: [[facility] 10/325] 325/10) Amlodipine Yes 10 mg, PO, [...] Memoria 02-16 (Same as: l 14:00: Prinivil, Zestril) metoprolol No Notes: Memor ia tartrate 02-16 (Same as: l 14:00: Lopressor) Microzide No Notes: Memori a 02-16 (Same as: l 14:00: Hydrodiuri l). Give with food. pneumococca No Notes: [...] / 02-16 (Same as: l Hydrocodone 04:39: [facility] Denita nn Bitartrate 00 325/5) Do 5 MG Oral not exceed Tablet 4gm/day of [[facility] acetaminop 5/325] hen. Tessalon No Notes: Memoria Perles 02-16 (Same As: l 01:00: Tessalon Kai 00 Perles) "Do Not Crush" Acetaminoph Yes 1 tab, PO, Memoria en 325 MG / 02-16 Q12H, PRN l Hydrocodone 00:48: Pain, # 30 [place] Bitartrate 00 tab, 0 5 MG Oral Refill(s) Tablet [[facility] 5/325] Alprazolam Yes 0.25 mg = Me moria 0.25 MG 02-16 1 tab, PO, l Oral Tablet 00:48: BID, PRN He rmann [Xanax] 00 Anxiety, Stress, # 20 tab, 0 Refill(s) metoprolol Yes 25 mg, PO, M emoria tartrate 02-16 BID, 0 l 00:48: Refill(s) [place] 00 NS 1,000 mL No 1,000 mL, M emoria 02-15 Rate: 75 l 23:04: ml/hr, Kai 00 Infuse over: 13.3 hr, Route: IV, Dosing Weight 13.636 kg, Total Volume: 1,000, Start date: 02/15/15 18:04:00, Duration: 30 day, Stop date: 03/17/15 18:03:00 Xopenex No Notes: SEE Ed bandar 02-15 RT l 23:03: DOCUMENTAT [place] 00 ION (Same as:Xopenex ) Non-Formul tamara Acetaminoph No Notes: Do M emoria en 325 MG / 02-15 not exceed l Hydrocodone 23:03: 4gm/day of Kai Bitartrate 00 acetaminop 10 MG Oral hen. Tablet (Same as: [[facility] 10/325] 325/10) Albuterol No Notes: Memori a 0.833 MG/ML 02-15 (Same as: l / 20:51: Duoneb) [place] Ipratropium 00 [place] 0.167 MG/ML Inhalant Solution [DuoNeb] Aspirin No Notes: Memoria 02-15 Take with l 20:00: food. tramadol Yes 100 mg = 2 Mem oria hydrochlori 02-09 tab, PO, l de 50 MG 21:05: Q6H, PRN Denita nn Oral Tablet 00 pain, X 3 [Ultram] day, # 20 tab, 0 Refill(s) Tylenol No Notes: Do Memor ia 02-09 not exceed l 20:47: 4 gm/day. (Same as: Tylenol) Sodium No 1,000 mL, Memori a Chloride 01-23 1,000 l 0.154 19:39: ml/hr, MEQ/ML 00 Infuse Injectable Over: 1 Solution hr, Route: IV, 1,000, Drug form: INJ, ONCE, Priority: STAT, Dosing Weight 104.545 kg, Start date: 01/23/15 14:39:00, Duration: 1 doses or times, Stop date: 01/23/15 14:39:00 Saline No Notes: Memoria Flush 0.9% 01-23 preservati l 19:39: ve free. Vital Signs Vital Name Observation Time Observation Value Comments Source Systolic blood 2020-01-02 14:29:00 147 mm[Hg] [facility] Diastolic blood 2020-01-02 14:29:00 79 mm[Hg] [facility] Heart rate 2020-01-02 14:29:00 91 /min [facility] Respiratory rate 2020-01-02 14:29:00 18 /min [facility] Oxygen saturation in 2020-01-02 14:29:00 95 /min [facility] - Arterial blood by Medical Ce nter Pulse oximetry Body weight Measured 2020-01-02 06:36:00 85.276 kg [facility] BMI 2020-01-02 06:36:00 24.80 kg/m2 [facility] Body temperature 2020-01-02 06:34:[address] [facility] Systolic (mm Hg) 2016-04-05 18:57:00 Ed rial Kai Diastolic (mm Hg) 2016-04-05 18:57:00 Mem orial Kai Respitory Rate 2016-04-05 18:57:00 Memori al Kai Heart Rate 2016-04-05 18:57:00 [facility] [place] Systolic (mm Hg) 2016-04-05 18:27:00 Ed rial Kai Diastolic (mm Hg) 2016-04-05 18:27:00 Mem orial [place] Respitory Rate 2016-04-05 18:27:00 Memori al [place] Heart Rate 2016-04-05 18:27:00 [facility] [place] Respitory Rate 2016-04-05 17:57:00 Memori al [place] Heart Rate 2016-04-05 17:57:00 [facility] [place] Systolic (mm Hg) 2016-04-05 17:57:00 Ed rial Kai Diastolic (mm Hg) 2016-04-05 17:57:00 Mem orial Kai Temperature Oral (F) 2016-04-05 17:35:00 97.7 F [facility] Temperature Oral (F) 2016-04-05 17:27:00 97.7 F [facility] Temperature Oral (F) 2016-04-05 16:22:00 98.2 F [facility] Weight 2016-04-05 13:20:00 [facility] [place] BMI Calculated 2016-04-05 13:20:00 Memori al Kai Height 2016-04-05 13:20:00 185 cm [facility] [place] Respitory Rate 2016-03-14 11:00:00 Memori al [place] Systolic (mm Hg) 2016-03-14 11:00:00 Ed rial Kai Diastolic (mm Hg) 2016-03-14 11:00:00 Mem orial [place] Systolic (mm Hg) 2016-03-14 10:00:00 Ed rial [place] Diastolic (mm Hg) 2016-03-14 10:00:00 Mem orial [place] Respitory Rate 2016-03-14 10:00:00 Memori al [place] Temperature Oral (F) 2016-03-14 09:00:00 98.8 F [facility] [place] Respitory Rate 2016-03-14 09:00:00 Memori al [place] Systolic (mm Hg) 2016-03-14 09:00:00 Ed rial [place] Diastolic (mm Hg) 2016-03-14 09:00:00 Mem orial [place] Temperature Oral (F) 2016-03-14 05:00:00 98.7 F [facility] [place] Heart Rate 2016-03-14 03:48:00 [facility] BMI Calculated 2016-03-13 23:42:00 Memori al [place] Weight 2016-03-13 23:42:00 [facility] [place] Temperature Oral (F) 2016-03-13 23:42:00 98.6 F [facility] [place] Height 2016-03-13 23:42:00 185.42 cm [facility] Heart Rate 2016-03-13 23:42:00 [facility] Heart Rate 2016-02-18 19:19:00 [facility] [place] Temperature Oral (F) 2016-02-18 19:19:00 98.8 F [facility] [place] Respitory Rate 2016-02-18 19:19:00 Memori al [place] Systolic (mm Hg) 2016-02-18 19:19:00 Ed rial [place] Diastolic (mm Hg) 2016-02-18 19:19:00 Mem orial [place] Temperature Oral (F) 2016-02-18 15:28:00 98.3 F [facility] [place] Heart Rate 2016-02-18 15:28:00 [facility] [place] Systolic (mm Hg) 2016-02-18 15:28:00 Ed rial Kai Diastolic (mm Hg) 2016-02-18 15:28:00 Mem orial [place] Respitory Rate 2016-02-18 15:28:00 Memori al [place] Temperature Oral (F) 2016-02-18 12:40:00 98.2 F [facility] Heart Rate 2016-02-18 12:40:00 [facility] [place] Systolic (mm Hg) 2016-02-18 12:40:00 Ed rial [place] Diastolic (mm Hg) 2016-02-18 12:40:00 Mem orial [place] Respitory Rate 2016-02-18 12:40:00 [facility]ori al [place] Weight 2016-02-08 11:10:00 [facility] [place] BMI Calculated 2016-02-08 10:24:00 Memori al [place] Weight 2016-02-08 10:24:00 [facility] [place] Height 2016-02-08 10:24:00 185.42 cm [facility] Weight 2016-02-01 04:41:00 [facility] BMI Calculated 2016-02-01 04:41:00 Memori al [place] Height 2016-02-01 04:41:00 185.42 cm [facility] Height 2016-01-31 19:21:00 185.42 cm [facility] [place] BMI Calculated 2016-01-31 19:21:00 Memori al [place] Respitory Rate 2015-02-16 18:18:00 Memori al [place] Temperature Oral (F) 2015-02-16 17:50:00 98.0 F [facility] [place] Respitory Rate 2015-02-16 17:50:00 Memori al [place] Heart Rate 2015-02-16 17:50:00 [facility] [place] Systolic (mm Hg) 2015-02-16 17:50:00 Ed rial [place] Diastolic (mm Hg) 2015-02-16 17:50:00 Mem orial [place] Temperature Oral (F) 2015-02-16 12:35:00 98.2 F [facility] [place] Heart Rate 2015-02-16 12:35:00 [facility] [place] Systolic (mm Hg) 2015-02-16 12:35:00 Ed rial [place] Diastolic (mm Hg) 2015-02-16 12:35:00 Mem orial [place] Respitory Rate 2015-02-16 12:35:00 Memori al [place] Temperature Oral (F) 2015-02-16 09:00:00 97.5 F [facility] [place] Systolic (mm Hg) 2015-02-16 09:00:00 Ed rial [place] Diastolic (mm Hg) 2015-02-16 09:00:00 Mem orial [place] Heart Rate 2015-02-16 09:00:00 [facility] Height 2015-02-16 00:50:00 185.42 cm [facility] BMI Calculated 2015-02-16 00:50:00 Memori al [place] Weight 2015-02-16 00:50:00 [facility] Weight 2015-02-15 17:48:00 [facility] BMI Calculated 2015-02-15 17:48:00 Memori al [place] Height 2015-02-15 17:48:00 185.42 cm [facility] [place] Temperature Oral (F) 2015-02-09 21:12:00 98.2 F [facility] Heart Rate 2015-02-09 21:12:00 [facility] [place] Respitory Rate 2015-02-09 21:12:00 Memori al [place] Systolic (mm Hg) 2015-02-09 21:12:00 Ed rial Kai Diastolic (mm Hg) 2015-02-09 21:12:00 Mem orial [place] BMI Calculated 2015-02-09 20:27:00 [facility]ori al [place] Weight 2015-02-09 20:27:00 [facility] [place] Height 2015-02-09 20:27:00 185.42 cm [facility] [place] Systolic (mm Hg) 2015-02-09 20:27:00 Ed rial [place] Diastolic (mm Hg) 2015-02-09 20:27:00 Mem orial [place] Heart Rate 2015-02-09 20:27:00 [facility] [place] Respitory Rate 2015-02-09 20:27:00 Memori al [place] Systolic (mm Hg) 2015-01-23 23:00:00 Ed rial [place] Diastolic (mm Hg) 2015-01-23 23:00:00 Mem orial [place] Systolic (mm Hg) 2015-01-23 22:00:00 Ed rial [place] Diastolic (mm Hg) 2015-01-23 22:00:00 Mem orial [place] Systolic (mm Hg) 2015-01-23 21:00:00 Ed rial [place] Diastolic (mm Hg) 2015-01-23 21:00:00 Mem orial [place] Respitory Rate 2015-01-23 19:15:00 Memori al [place] Weight 2015-01-23 18:26:00 [facility] [place] Height 2015-01-23 18:26:00 185.42 cm [facility] BMI Calculated 2015-01-23 18:26:00 Memori al [facility] Respitory Rate 2015-01-23 18:26:00 Memori al [facility] Heart Rate 2015-01-23 18:26:00 [facility] [place] Temperature Oral (F) 2015-01-23 18:26:00 98.5 F [facility] Procedures Procedure Date / Time Performing Clinician Source Performed CT UPPER EXTREMITY 2020-01-02 14:15:[address] [facility] - WITHOUT IV CONTRAST LEFT [facility] XR SHOULDER LEFT COMPLETE 2020-01-02 09:56:00 Rob Hermosillo [facility] - MIN [address] [place] [address] PT/APTT 2020-01-02 08:49:00 Rio Freitas [facility] SARS-COV2/RT-PCR ([facility] & 2020-01-02 08:22:00 Rio Freitas [facility] - REF LABS) [facility] COMPREHENSIVE METABOLIC 2020-01-02 08:18:00 Rio Freitas [facility] CBC W/PLT COUNT & AUTO 2020-01-02 08:18:00 Rio Freitas [facility] XR SHOULDER LEFT COMPLETE 2020-01-02 07:18:00 Rio Freitas [facility] - [address] PROCEDURAL SEDATION 2020-01-02 07:10:11 Rio Freitas [facility] Amputation of [facility] toe<sup>1</sup> Blood transfusion [facility] Encounters Start End Encounter Admission Attending Care Care Encounter Source Date/Time Date/Time Type Type Clinicians Facility Department ID 2016-04-05 2016-04-05 Outpatient SAVI Pierce YUMI [id number] 08:00:00 23:59:00 Chuy 08 Jeff 2016-03-13 2016-03-14 Outpatient SAVI Diaz [facility] [id number] 18:41:00 10:51:00 Blanche Ruiz 07 2016-01-31 2016-02-18 Outpatient SAVI Pierce [id number] 13:47:00 15:15:00 Chuy 06 Jeff 2015-02-15 2015-02-16 Outpatient SAVI Torres [facility] [id number] 12:38:00 16:20:00 Juan Mckeon 2015-02-09 2015-02-09 Outpatient Az Warner [facility] [id number] 15:20:00 16:13:00 Sundar Mays 2015-01-23 2015-01-23 Outpatient SAVI Fry [id number] 13:23:00 18:13:00 Tim Cope 03 2013-10-31 2013-11-29 Outpatient GENIA Gleason [id number] 08:00:00 23:59:00 Nabeel Mirza 00 Results Test Description Test Time Test Comments Results Result Sourc e Comments CT, EXTREMITY, 2020-01-02 FINAL REPORT UPPER, WITHOUT 15:45:00 PATIENT ID: CONTRAST, LEFT [id number] CT of the left shoulder without contrast History: left shoulder dislocation Comparisons: Radiograph dated January 02, 2020 Technique: CT of the left shoulder was performed without contrast. Axial images were generated as were multiplanar reformatted images in the coronal and sagittal planes. This exam was performed according to our departmental dose optimization program which includes automated exposure control, adjustment of the mA and/or kV according to patient's size and/or use of iterative reconstructive technique. Findings: There is anterior inferior dislocation of the left shoulder. Slight flattening of the posterolateral left humeral head may reflect a Hill-Sachs deformity, although acuity is uncertain, and fibrocystic changes are seen in this location. There are a few tiny ossific densities inferior to the humeral head, probably reflecting avulsion fracture fragment, although the donor site is not clearly identified. No definite glenoid fracture is seen. 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 A sclerotic focus in the humeral head is most likely a bone island. There is soft tissue edema around the shoulder. A small joint effusion is suspected. Partially imaged left hemithorax is unremarkable. IMPRESSION: Anterior left shoulder dislocation. Slight flattening of the posterolateral humeral head may reflect a Hill-Sachs deformity, although acuity is uncertain. There are a few tiny ossific densities inferior to the humeral head, which may reflect avulsion fracture fragments, from unclear donor sites. Signed: Delisa Bustilloort Verified Date/Time: 01/02/2020 15:45:14 Reading Location: [facility] Radiology Reading Room upper 2020-01-02 Interface, External [facility] extremity without 15:45:00 Ris In - 01/02/2020 - Medical contrast left 3:47 PM [facility]INAL Cent er REPORT CT of the left shoulder without contrast History: left shoulder dislocation Comparisons: Radiograph dated January 02, 2020 Technique: CT of the left shoulder was performed without contrast. Axial images were generated as were multiplanar reformatted images in the coronal and sagittal planes. This exam was performed according to our departmental dose optimization program which includes automated exposure control, adjustment of the mA and/or kV according to patient's size and/or use of iterative reconstructive technique. Findings: There is anterior inferior dislocation of the left shoulder. Slight flattening of the posterolateral left humeral head may reflect a Hill-Sachs deformity, although acuity is uncertain, and fibrocystic changes are seen in this location. There are a few tiny ossific densities inferior to the humeral head, probably reflecting avulsion fracture fragment, although the donor site is not clearly identified. No definite glenoid fracture is seen. 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 A sclerotic focus in the humeral head is most likely a bone island. There is soft tissue edema around the shoulder. A small joint effusion is suspected. Partially imaged left hemithorax is unremarkable. IMPRESSION: Anterior left shoulder dislocation. Slight flattening of the posterolateral humeral head may reflect a Hill-Sachs deformity, although acuity is uncertain. There are a few tiny ossific densities inferior to the humeral head, which may reflect avulsion fracture fragments, from unclear donor sites. Signed: Delisa Bustillo Verified Date/Time: 01/02/2020 15:45:14 Reading Location: [facility] Radiology Reading Room -CoV2/RT-PCR (Asymptomatic ONLY) 2020-01-02 13:11:00 Test Item Value Reference Range Interpretation Comme nts SARS-COV2/RT-PCR (test code = Negative Not Detected, 99463-9) Negative, See external report for linked test SARS-COV-2 PERFORMING LAB [facility] (test code = 19231-0) DELLA (test code = DELLA) Negative result for this test determines that SARS-CoV-2 RNA was not present in the specimen above the Limit of Detection (LOD). However, Negative results do not preclude SARS-CoV-2 infection and should not be used as the sole basis for treatment or patient management decisions. Negative results must be combined with clinical observations, patient history, and epidemiological information. A false negative result may occur if a specimen is improperly collected, transported or handled. A false negative result should be considered if patient's recent exposures or clinical presentation indicate that COVID-19 (SARS-CoV-2) is likely and diagnostic tests for other causes of illness are negative. Re-testing should be considered in cases of suspected [...] Food and Drug Administration (FDA) cleared or approved. This is a modified version of an approved [...] of the Act. Fact Sheet for Healthcare Providers:https://www.[employer]/sites/default/files/produ ct/documents/Fact_Sheet_HC_Pr ryqvigz_Rpsx_ONKO-MaP-8.pdf Fact Sheet for Healthcare Patients:https://www.[employer] /sites/default/files/produc t/documents/Fact_Sheet_[facility] Hospitalen kz_Rnfu_YVXZ-ZzA-6.pdf Performing Laboratory:[facility] [place] [address] [facility] & REF LABS)2020-01-02 13:11:00 Test Item Value Reference Range Interpretation Comments SARS-COV2/RT-PCR (test Negative Not Detected, Negative, code = 0770770) See external report for linked test SARS-COV-2 PERFORMING LAB [facility] (test code = 6296475) Negative result for this test determines that SARS-CoV-2 RNA was not present in the specimen above the Limit of Detection (LOD). However, Negative results do not preclude SARS-CoV-2 infection and should not be used as the sole basis for treatment or patient management decisions. Negative results mustbe combined with clinical observations, patient history, and epidemiological information. A false negative result may occur if a specimen is improperly collected, transported or handled. A false negative result should be considered if patient's recent exposures or clinical presentation indicate that COVID-19 (SARS-CoV-2) is likely and diagnostic tests for other causes of illness are negative. Re-testing should be considered in cases of suspected false negatives.The limit of detection for this assay is 800 copies/mL.This SARS CoV-2 test is a real-time RT-PCR test intended for the qualitative detection of nucleic acid from SARS-CoV-2 in a nasopharyngeal swab specimen collected from individuals suspected of COVID-19 by their healthcare provider.This test has not been Food and Drug Administration (FDA) cleared or approved. This is a modified version of an approved [...] is revoked under Section 564(g) of the Act.Fact Sheet for Healthcare Providers:https://www.[employer]/sites/default/files/product/documents/Fact_Shee n_OI_Piurlykxk_Yelc_UABO-HeI-2.pdfFact Sheet for Healthcare Patients:https://www.[employer]/sites/default/files/product/ documents/Beet_Dzxdl_Mawedkhu_Rltf_VAKG-YfV-0.pdfPerforming Laboratory:[facility], [place] [address]HNJ, SHOULDER, COMPLETE (MIN 2 VIEWS), [id number] 10:34:00Reason for exam:->ARM INJURYShould this be performed at the bedside?->YesFINAL REPORT RAD, SHOULDER, COMPLETE (MIN 2 VIEWS), LEFT INDICATION: ARM INJURY COMPARISON: 2 hours prior TECHNIQUE: Single frontal view of the left shoulder. IMPRESSION: Redemonstration of chronic changes in the anteriorly displaced humeral head. Glenoid rim appears preserved.Acromioclavicular joint remains intact. Signed: JR Moerira Robert MDReport Verified Date/Time: 01/02/2020 10:34:05 Reading Location: [facility] Radiology Reading Room XR shoulder complete 2 views min [id number] 10:34:00Interface, External Ris In - 01/02/2020 10:36 AM CDTFINAL REPORT RAD, SHOULDER, COMPLETE (MIN 2 VIEWS), LEFT INDICATION: ARM INJURY COMPARISON: 2 hours prior TECHNIQUE: Single frontal view of the left shoulder. IMPRESSION: Redemonstration of chronic changes in the anteriorly displaced humeral head. Glenoid rim appears preserved. Acromioclavicular joint remains intact. Signed: Teressa hernandez JR, Robert MDReport Verified Date/Time: 01/02/2020 10:34:05 Reading Location: [facility] Radiology Reading Room [facility] PT/[id number] 09:03:00 Test Item Value Reference Range Interpretation Comments Protime (test code = 13.4 11.9- 14.2 5902-2) seconds INR (test code = 1.1 <=5.9 6301-6) PTT (test code = 30.8 22.5- 36.0 72347-5) seconds DELLA (test code = DELLA) Effective 10/23/2018: PT Reference Range ChangeNew: 11.9-14.2 Previous: 11.7-14.7 RECOMMENDED COUMADIN/WARFARIN INR THERAPY RANGESSTANDARD DOSE: 2.0-3.0 Includes: PROPHYLAXIS for venous thrombosis, systemic embolization; TREATMENT for venous thrombosis and/or pulmonary embolus.HIGH RISK: Target INR is 2.5-3.5 for patients wiht mechanical heart valves. Lab Interpretation Normal (test code = 99737-8) [facility][id number] 09:03:00 Test Item Value Reference Range Interpretation Comments PROTIME (BEAKER) (test code = 13.4 seconds 11.9-14.2 759) INR (BEAKER) (test code = 370) 1.1 <=5.9 PARTIAL THROMBOPLASTIN TIME 30.8 seconds 22.5-36.0 (BEAKER) (test code = 760) Effective 10/23/2018: PT Reference Range ChangeNew: 11.9-14.2 Previous: 11.7- 14.7RECOMMENDED COUMADIN/WARFARIN INR THERAPY RANGESSTANDARD DOSE: 2.0-3.0 Includes: PROPHYLAXIS for venous thrombosis, systemic embolization; TREATMENT for venous thrombosis and/or pulmonary embolus.HIGH RISK: Target INR is2.5-3.5 for patients wiht mechanical heart valves.Comprehensive metabolic panel 2020-01-02 08:46:00 Test Item Value Reference Range Interpretation Comments Protein, Total (test 8.0 6.0- 8.3 gm/dL Speci men slightly code = 2885-2) hemolyzed Albumin (test code = 4.2 g/dL 3.5-5 Specime n slightly 80466-4) hemolyzed Alkaline Phosphatase 78 U/L 40-150 (test code = 6768-6) Total Bilirubin (test 0.4 mg/dL 0.2-1.2 Specim en slightly code = 1975-2) hemolyzed Sodium (test code = 134 meq/L 136-145 L 2951-2) Potassium (test code = 3.5 meq/L 3.5-5.1 Speci men slightly 2823-3) hemolyzed Chloride (test code = 100 meq/L 98-107 5-0) CO2 (test code = 21 meq/L 22-29 L 8-9) BUN (test code = 10 mg/dL 7-21 3094-0) Creatinine (test code 0.83 mg/dL 0.57-1.25 Specim en slightly = 2160-0) hemolyzed Glucose (test code = 74 mg/dL 70-105 2345-7) Calcium (test code = 9.3 mg/dL 8.4-10.2 24248-3) AST (test code = 25 U/L 5-34 Specimen sl ightly 0-8) hemolyzed ALT (test code = 16 U/L 6-55 Specimen sl ightly 1742-6) hemolyzed EGFR (test code = 96 mL/min/1.73 [place] [address]-3) NOT ACCURATE CREATININE CLEARANCE IN PREDICTING GLOMERULAR FILTRATION RATE . ESTIMATED GFR I S NOT APPLICABLE FOR DIALYSIS PATIENTS. DELLA (test code = DELLA) Child Psychiatrist ID - [id number] Lab Interpretation Abnormal (test code = 48577-3) [facility] [id number] 08:46:00 Test Item Value Reference Range Interpretation Comments TOTAL PROTEIN 8.0 gm/dL 6.0-8.3 Specimen sligh tly (BEAKER) (test code = hemoly zed 770) ALBUMIN (BEAKER) 4.2 g/dL 3.5-5.0 Specimen sl ightly (test code = 1145) hemolyzed ALKALINE PHOSPHATASE 78 U/L 40-150 (BEAKER) (test code = 346) BILIRUBIN TOTAL 0.4 mg/dL 0.2-1.2 Specimen sli ghtly (BEAKER) (test code = hemoly zed 377) SODIUM (BEAKER) (test 134 meq/L 136-145 L code = 381) POTASSIUM (BEAKER) 3.5 meq/L 3.5-5.1 Specimen slightly (test code = 379) hemolyzed CHLORIDE (BEAKER) 100 meq/L 98-107 (test code = 382) CO2 (BEAKER) (test 21 meq/L 22-29 L code = 355) BLOOD UREA NITROGEN 10 mg/dL 7-21 (BEAKER) (test code = 354) CREATININE (BEAKER) 0.83 mg/dL 0.57-1.25 Specimen slightly (test code = 358) hemolyzed GLUCOSE RANDOM 74 mg/dL 70-105 (BEAKER) (test code = 652) CALCIUM (BEAKER) 9.3 mg/dL 8.4-10.2 (test code = 697) AST (SGOT) (BEAKER) 25 U/L 5-34 Specimen slightly (test code = 353) hemolyzed ALT (SGPT) (BEAKER) 16 U/L 6-55 Specimen slightly (test code = 347) hemolyzed EGFR (BEAKER) (test 96 mL/min/1.73 ESTIMA MEET GFR IS code = 1092) sq m NOT ACCURATE CREATININE CLEARANCE IN PREDICTING GLOMERULAR FILTRATION RATE . ESTIMATED GFR I S NOT APPLICABLE FOR DIALYSIS PATIEN TS. Child Psychiatrist ID - [id number] with platelet count + automated [id number] 08:30:00 Test Item Value Reference Range Interpretation Comments WBC (test code = 6690-2) 7.5 3.5- 10.5 K/L RBC (test code = 789-8) 4.74 4.63- 6.08 M/L MCHC (test code = 786-4) 34.0 32.3- 36.5 GM/DL Hematocrit (test code = 4544-3) 42.6 % 40.1-51 MCV (test code = 787-2) 89.9 fL 79-92.2 MCH (test code = 785-6) 30.6 pg 25.7-32.2 RDW (test code = 788-0) 16.3 % 11.6-14.4 H Platelets (test code = 777-3) 218 150- 450 K/CU MM MPV (test code = 98417-0) 8.8 fL 9.4-12.4 L nRBC (test code = 413) 0 0- 0 /100 WBC % Neutros (test code = 429) 73 % % Lymphs (test code = 430) 18 % % Monos (test code = 431) 6 % % Eos (test code = 432) 3 % % Baso (test code = 437) 1 % # Neutros (test code = 670) 5.49 1.78- 5.38 K/L H # Lymphs (test code = 414) 1.32 1.32- 3.57 K/L # Monos (test code = 415) 0.41 0.30- 0.82 K/L # Eos (test code = 416) 0.19 0.04- 0.54 K/L # Baso (test code = 417) 0.06 0.01- 0.08 K/L Immature Granulocytes-Relative 1 % 0-1 (test code = 2801) Lab Interpretation (test code = Abnormal 86662-1) [facility] & AUTO [id number] 08:30:00 Test Item Value Reference Range Interpretation Comments WHITE BLOOD CELL COUNT (BEAKER) 7.5 K/ L 3.5-10.5 (test code = 775) RED BLOOD CELL COUNT (BEAKER) 4.74 M/ L 4.63-6.08 (test code = 761) HEMOGLOBIN (BEAKER) (test code = 14.5 GM/DL 13.7-17.5 410) HEMATOCRIT (BEAKER) (test code = 42.6 % 40.1-51.0 411) MEAN CORPUSCULAR VOLUME (BEAKER) 89.9 fL 79.0-92.2 (test code = 753) MEAN CORPUSCULAR HEMOGLOBIN 30.6 pg 25.7-32.2 (BEAKER) (test code = 751) MEAN CORPUSCULAR HEMOGLOBIN CONC 34.0 GM/DL 32.3-36.5 (BEAKER) (test code = 752) RED CELL DISTRIBUTION WIDTH 16.3 % 11.6-14.4 H (BEAKER) (test code = 412) PLATELET COUNT (BEAKER) (test 218 K/CU MM 150-450 code = 756) MEAN PLATELET VOLUME (BEAKER) 8.8 fL 9.4-12.4 L (test code = 754) NUCLEATED RED BLOOD CELLS 0 /100 WBC 0-0 (BEAKER) (test code = 413) NEUTROPHILS RELATIVE PERCENT 73 % (BEAKER) (test code = 429) LYMPHOCYTES RELATIVE PERCENT 18 % (BEAKER) (test code = 430) MONOCYTES RELATIVE PERCENT 6 % (BEAKER) (test code = 431) EOSINOPHILS RELATIVE PERCENT 3 % (BEAKER) (test code = 432) BASOPHILS RELATIVE PERCENT 1 % (BEAKER) (test code = 437) NEUTROPHILS ABSOLUTE COUNT 5.49 K/ L 1.78-5.38 H (BEAKER) (test code = 670) LYMPHOCYTES ABSOLUTE COUNT 1.32 K/ L 1.32-3.57 (BEAKER) (test code = 414) MONOCYTES ABSOLUTE COUNT (BEAKER) 0.41 K/ L 0.30-0.82 (test code = 415) EOSINOPHILS ABSOLUTE COUNT 0.19 K/ L 0.04-0.54 (BEAKER) (test code = 416) BASOPHILS ABSOLUTE COUNT (BEAKER) 0.06 K/ L 0.01-0.08 (test code = 417) IMMATURE GRANULOCYTES-RELATIVE 1 % 0-1 PERCENT (BEAKER) (test code = 2801) RAD, SHOULDER, COMPLETE (MIN 2 VIEWS), [id number] 07:45:00Reason for exam:- >ARM INJURYFINAL REPORT RAD, SHOULDER, COMPLETE (MIN 2 VIEWS), LEFT COMPARISON: None INDICATION: ARM INJURY FINDINGS: AP views in internal and external rotation and an axillary "Y" viewof the left shoulder. IMPRESSION: Dislocation at the glenohumeral joint with anterior positioningof the humeral head. Hill-Sachs deformity is of indeterminate chronicity. The glenoid rim appears intact. Acromioclavicular joint is normally aligned. Signed: JR Moreira Robert MDReport Verified Date/Time: 01/02/2020 07:45:57 Reading Location: [facility] Radiology Reading Room Electronic ally signed by: RENEE MOREIRA on 01/02/2020 07:45 AMProcedural sedation 2020-01-02 07:10:11ARio maki MD 01/22/2020 10:38 PM Procedural sedationDate/Time: 01/02/2020 8:00 AMPerformed by: Rio Freitas MDAuthorized by: Rio Freitas MD Consent: Consent obtained: Written See paper consent form.Indications: Procedure performed: Dislocation reduction Procedure necessitating sedation performed by: Physician performing sedationPre-sedation assessment: Clinician reviewed the following: allergies, anesthesia history, family history, patient summary, pertinent labs, problem list, family history of anesthetic complications and social history reviewed ASA classification: class 1 - normal, healthy patient Neck mobility: normal Mouth openin or more finger widths Mallampati score: I - soft palate, uvula, fauces, pillars visible History of difficult intubation: no Pre- sedation assessment completed: 01/02/2020 7:40 AMImmediate pre-procedure details: Reassessment: Patient reassessed immediately prior to procedure Procedure details (see MAR for exactdosages): Sedation level: moderate (conscious) sedation, Sedation start time: 01/02/2020 8:00 AM Preoxygenation: Nasal cannula Sedation: Propofol and ketamine Intra-procedure monitoring: life enrichment manager, blood pressure monitoring, continuous capnometry and continuous pulse oximetry Intra-procedure events: none Sedation end time: 01/02/2020 10:05 AMPost Sedation Evaluation: Respiration: airway patentThe following have been reviewed and found to be within acceptable parameters: RR, HR, BP and pulse ox Pain Scale: 5/10 Nausea/Vomiting: noHydration status: wnlTemperature within expected parameters :Temperature within defined limits @SLHSEDMULTIPLEVITALS@ [facility] CenterBLO[facility] [id number] 02:00:00 Test Item Value Reference Range Interpretation Comments CULTURE (BEAKER) (test No growth in 5 days code = 1095) BLOOD [id number] 20:01:00 Test Item Value Reference Range Interpretation Comments CULTURE (BEAKER) (test No growth in 5 days code = 1095) EEG AWAKE AND [id number] 14:49:00Reason for exam:->seizuresDate(s) of EE10/14/18DATE OF REPORT: 10/14/18ACC: [id number] Number: [id number] time: 13:36Stop time: 13:57ICD-10: R56.9 Unspecified ConvulsionsCPT Code: 18094 EEG: awake and drowsy <40 min HISTORY: [...] the sleep state. Indigo Zabala MDNeurophysiology Fellow Mario Castorenaurophysiology/Epilepsy Attending [facility] METABOLIC [id number] 07:41:00 Test Item Value Reference Range Interpretation [...] PATIEN TS. CBC W/PLT COUNT & AUTO [id number] 05:30:00 Test Item Value Reference Range Interpretation [...] % 0-1 PERCENT (BEAKER) (test code = 2804) VITAMIN B12 AND [id number] 19:46:00 Test Item Value Reference Range Interpretation Comments VITAMIN B12 (BEAKER) (test code = 683 pg/mL 213-816 774) FOLATE (BEAKER) (test code = 362) > ng/mL >=7.0 [id number] 17:59:00 Test Item Value Reference Range Interpretation Comments PHOSPHORUS (BEAKER) (test code = 4.0 mg/dL 2.3-4.7 604) [id number] 17:59:00 Test Item Value Reference Range Interpretation Comments MAGNESIUM (BEAKER) (test code = 2.5 mg/dL 1.6-2.6 627) CT, BRAIN, WITHOUT [id number] 16:58:00FINAL REPORT CT head without contrast. Reason [...] chronic microvascular ischemic changes. Signed: Delisa Bustillo Verified Date/Time: 10/12/2018 16:58:56 Reading Location: [address] Neuro Reading Room ALYSIS W/ [id number] 16:25:00 Test Item Value Reference Range Interpretation [...] 516) SOURCE(BEAKER) (test code = Urine, Voided 0453) BLOOD [id number] 10:00:00 Test Item Value Reference Range Interpretation Comments CULTURE (BEAKER) (test No growth in 5 days code = 1095) STOOL CULTURE + SHIGA [id number] 09:59:00 Test Item Value Reference Range Interpretation Comments CULTURE (BEAKER) No Salmonella, Shigella (test code = 1095) or Campylobacter isolated STOOL PATH [id number] 09:01:00 Test Item Value Reference Range Interpretation Comments PATHOGEN EXAM CHARGED (BEAKER) (test Done code = 238) BASIC METABOLIC [id number] 06:59:00 Test Item Value Reference Range Interpretation [...] APPLICABLE FOR DIALYSIS PATIEN TS. SHIGA TOXIN [id number] 15:48:00 Test Item Value Reference Range Interpretation Comments SHIGA TOXIN 1 (BEAKER) (test Not detected Not detected code = 2177) SHIGA TOXIN 2 (BEAKER) (test Not detected Not detected code = 2179) CLOSTRIDIUM DIFFICILE TOXIN [id number] 15:13:00 Test Item Value Reference Range Interpretation [...] a positive result is not recommended.BLOOD GAS, [id number] 11:03:00 Test Item Value Reference Range Interpretation [...] code = 1819) 21.0 % BASIC METABOLIC [id number] 05:14:00 Test Item Value Reference Range Interpretation [...] NOT APPLICABLE FOR DIALYSIS PATIEN TS. PTH, [id number] 05:03:00 Test Item Value Reference Range Interpretation Comments PARATHYROID HORMONE INTACT 41.8 pg/mL 8.5-72.5 (BEAKER) (test code = 577) BASIC METABOLIC [id number] 07:10:00 Test Item Value Reference Range Interpretation [...] APPLICABLE FOR DIALYSIS PATIEN TS. SODIUM, RANDOM [id number] 06:58:00 Test Item Value Reference Range Interpretation Comments SODIUM URINE (BEAKER) (test code = 65 meq/L 243) Reference Range: No NormalsPROTHROMBIN TIME/[id number] 06:47:00 Test Item Value Reference Range Interpretation Comments PROTIME (BEAKER) (test code = 14.5 seconds 11.7-14.7 759) INR (BEAKER) (test code = 370) 1.1 <=5.9 RECOMMENDED COUMADIN/WARFARIN INR THERAPY RANGESSTANDARD DOSE: 2.0 - 3.0 Includes: PROPHYLAXIS forvenous thrombosis, systemic embolization; TREATMENT for venous thrombosis and/or pulmonary embolus.HIGH RISK: Target INR is 2.5-3.5 for patients with mechanical heart valves.RAPID DRUG SCREEN, [id number] 15:43:00 Test Item Value Reference Range Interpretation [...] situations. Chain of custody not maintained. Some zyxl-ytx-mzyzlzt medications, as well as adulterants, may cause inaccurate results. Clinical correlation should be applied. A more comprehensive drug screen or confirmation of a detected drug may be performed upon request.URINE [id number] 14:33:00 Test Item Value Reference Range Interpretation Comments CULTURE (BEAKER) (test code = 1095) No growth BASIC METABOLIC [id number] 08:09:00 Test Item Value Reference Range Interpretation [...] PATIEN TS. CBC W/PLT COUNT & AUTO [id number] 06:38:00 Test Item Value Reference Range Interpretation [...] (BEAKER) (test code = 2801) U/S, RENAL, [id number] 22:34:00Reason for exam:->acute kidney injury FINAL REPORT [...] of hydronephrosis. Signed: Zion Jack Verified Date/Time: 04/17/2017 22:34:25 Reading Location:[facility] C013W Consult Reading Room MR, BRAIN, WITHOUT [id number] 19:18:00Reason for exam:->Stroke evaluationFINAL REPORT MRI Brain [...] for possible seizure foci. Signed: Wicho Nelson Charlene ified Date/Time: 04/17/2017 19:18:34 Reading Location: [facility] Radiology Reading Room EEG MONITORING WITH VIDEO RECORDING EACH 24 [id number] 18:01:00DATE OF TEST: 04/17/2017 DATE OF REPORT 04/17/2017 ACC: [id number] EE Start time: 16:42 Stop time: 18:44 ICD-10: R56.9 CPT Code: 50605 HISTORY: 51 y/o woman with history of [...] Shahnaz Davis MD Neurophysiology Attending ALYSIS W/ [id number] 11:57:00 Test Item Value Reference Range Interpretation [...] 1583) SOURCE(BEAKER) (test code = Urine, Cooper 3578) EOSINOPHIL SMEAR, [id number] 11:56:00 Test Item Value Reference Range Interpretation Comments EOSINOPHIL SMEAR, URINE (BEAKER) No EOS seen No EOS seen (test code = 1851) CREATININE, RANDOM [id number] 11:24:00 Test Item Value Reference Range Interpretation Comments CREATININE URINE (BEAKER) (test 69.7 mg/dL code = 375) Reference Range: No NormalsSODIUM, RANDOM [id number] 11:24:00 Test Item Value Reference Range Interpretation Comments SODIUM URINE (BEAKER) (test code = 58 meq/L 243) Reference Range: No NormalsUREA NITROGEN, RANDOM [id number] 11:24:00 Test Item Value Reference Range Interpretation Comments UREA NITROGEN URINE (BEAKER) (test 172 mg/dL code = 538) Reference Range: No NormalsCREATINE KINASE (CK)2017-04-17 11:06:00 Test Item Value Reference Range Interpretation Comments CREATINE KINASE TOTAL (BEAKER) (test 136 U/L 29-200 code = 380) BASIC METABOLIC [id number] 04:53:00 Test Item Value Reference Range Interpretation [...] PATIEN TS. CBC W/PLT COUNT & AUTO [id number] 04:19:00 Test Item Value Reference Range Interpretation [...] EEG MONITORING WITH VIDEO RECORDING EACH 24 [id number] 17:57:00DATE OF TEST: 04/16/2017DATE OF REPORT 04/16/2017 ACC: [id number]: Start time: 08:42 Stop time: 16:42ICD-10: R56.9CPT Code: 32278XQSXBIN: 51 y/o woman with history of epilepsy [...] report.Phoebe Hassan MDEpilepsy Attending EEG AWAKE/ASLEEP AND [id number] 13:27:00Reason for exam:->status epilepticusDATE OF TEST: 04/16/2017DATE OF REPORT 04/16/2017 ACC: [id number] EEStart time: 08:21 Stop time: 08:42ICD-10: R56.9CPT Code: 58237PDASKAP: 51 y/o woman with history of epilepsy [...] this report.Phoebe Hassan MDEpilepsy Attending HEPATIC FUNCTION [id number] 12:59:00 Test Item Value Reference Range Interpretation [...] 347) hemolyzed RAD, CHEST, 1 VIEW, NON [id number] 09:16:00Reason for exam:- >intubatedShould this be performed [...] Doe Verified Date/Time: 04/16/2017 09:16:32 Reading Location: [facility] Radiology Reading Room VITAMIN [id number] 07:31:00 Test Item Value Reference Range Interpretation Comments VITAMIN B12 (BEAKER) (test code = 450 pg/mL 213-526 254) FOLATE, [id number] 07:31:00 Test Item Value Reference Range Interpretation Comments FOLATE (BEAKER) (test code = 362) 8.0 ng/mL >=7.0 URINALYSIS W/ [id number] 07:09:00 Test Item Value Reference Range Interpretation [...] = 514) SOURCE(BEAKER) (test code = 2795) [id number] 05:59:00 Test Item Value Reference Range Interpretation Comments MAGNESIUM (BEAKER) 3.0 mg/dL 1.6-2.6 H Specimen moderately (test code = 627) hemolyzed [id number] 05:59:00 Test Item Value Reference Range Interpretation Comments PHOSPHORUS (BEAKER) 3.0 mg/dL 2.3-4.7 Specimen moderately (test code = 604) hemolyzed BASIC METABOLIC [id number] 05:59:00 Test Item Value Reference Range Interpretation [...] NOT APPLICABLE FOR DIALYSIS PATIEN TS. PROTHROMBIN [id number] 05:33:00 Test Item Value Reference Range Interpretation Comments PROTIME (BEAKER) (test code = 15.7 seconds 11.7-14.7 H 759) INR (BEAKER) (test code = 370) 1.3 <=5.9 RECOMMENDED COUMADIN/WARFARIN INR THERAPY RANGESSTANDARD DOSE: 2.0 - 3.0 Includes: PROPHYLAXIS forvenous thrombosis, systemic embolization; TREATMENT for venous thrombosis and/or pulmonary embolus.HIGH RISK: Target INR is 2.5-3.5 for patients with mechanical heart valves.BLOOD GAS, [id number] 05:31:00 Test Item Value Reference Range Interpretation [...] 60.0 % CBC W/PLT COUNT & AUTO [id number] 05:08:00 Test Item Value Reference Range Interpretation [...] (BEAKER) (test code = 2801) BLOOD BANK [id number] 17:22:00Product available (04/04/16 11:22 AM) [facility] BANK [id number] 17:20:00Negative (04/04/16 11:20 AM) [facility] [id number] 07:08:001[facility] [id number] 07:08:003[facility] NUBFQ0129-74-79 07:08:00 Negative (03/14/16 2:08 AM)[facility] [id number] 07:08:005.0 [facility] QAOIK9386-75-55 07:08:001.009[facility] YRSME4303-53-68 07:08:00Clear (03/14/16 2:08 AM)[facility] STOOL 2016-03-14 07:08:00Yellow *NA*(03/14/16 2:08 AM)[facility] STOOL 2016-03-14 07:08:00Negative (03/14/16 2:08 AM)[facility] STOOL 2016-03-14 07:08:00Negative (03/14/16 2:08 AM)[facility] ST[facility]OL 2016-03-14 07:08:00Negative *NA*(03/14/16 2:08 AM)[facility]ann[facility] PANEL 2016-03-14 05:40:000.8[facility]annBLOOD BANK [id number] 02:07:00 Negative (03/13/16 9:07 PM)[facility]annCHE[facility] [id number] 02:07:0043 [facility]annCHE[facility] [id number] 02:07:0021[facility]annCHEM PANEL 2016-03-14 02:07:001.79[facility]annCHE[facility] [id number] 02:07:0095[facility]annCHEM VAPLU5897-87-50 02:07:000.3[facility]annCHEM SVBIU9596-78-10 02:07:0039[facility]annCHEM BUWCH5212-77-67 02:07:0059[facility]annCHEM MNXNE4353-93-07 02:07:42248Yhsibhtd HermannCHEM IGVCS7566-32-73 02:07:007.8 [facility]CHE[facility] AWYVC5090-90-69 02:07:002.5[facility]annCHEM PANEL 2016-03-14 02:07:93271Nywaaoin HermannCHEM LPCIL9482-09-09 02:07:41446Vixzidto HermannCHEM ITJDP0141-52-74 02:07:0021[facility]annCHEM AQUZK9646-90-41 02:07:0010.1[facility]annCHEM FWTRN5244-96-56 02:07:003.3[facility]annCHEM ZLRAL2266-05-14 02:07:000.5[facility]annCHEM FBDPW2210-53-89 02:07:005.3 [facility]annCHE[facility] NWEAK5410-78-78 02:07:0012[facility]annCHEM PANEL 2016-03-14 02:07:0015.3[facility] UexvdllJSGZUHGRDR5139-35-41 02:07:007.4[facility] TljijjgUDQUGSQPFW3744-57-70 02:07:007.3[facility] NhesuawGKRASVSMMS0225-39-98 02:07:0088.5[facility] DivfwfvYSFPYYXANW0674-74-78 02:07:003.00[facility] ZEGNOZVHVB6776-84-52 02:07:0026.5[facility] WotljydLJPHMUHHUX5318-53-61 02:07:00 8.8[facility] VnyyihsPIEHVYGLTI2031-64-38 02:07:0033.1[facility]annHEMATOLOGY 2016-03-14 02:07:00 Test Item Value Reference Range Interpretation Comments MCH (test code = MCH) 29.3 pg 27.0-31.0 [facility] HsmwaioPCPMMBXFDV9866-79-46 02:07:97586Fwiggajx HermannHEMATOLOGY 2016-03-14 02:07:0015.5[facility] AaejvcaRSCQMXWLIW0737-83-95 02:07:000.1[facility] PgfxnypZSZWPZCWTY6177-06-10 02:07:0014.3[facility] BhvnsbtEPUOSMWVED6959-87-93 02:07:001.9[facility] FeracbrGJGTTAZFID5236-86-58 02:07:0077.1[facility] BPSSOVRZSL6576-25-68 02:07:005.3[facility] CkzhfhkXRIAFLGBTG1145-13-76 02:07:001.4 [facility] MornoltVDGTVIPMFF9775-91-65 02:07:005.6[facility]annHEMATOLOGY 2016-03-14 02:07:001.0[facility] ZasobckDWIYHMEBQM5037-99-05 02:07:000.4[facility] NlqzuadHRBELVSGHA2244-98-80 02:07:000.1[facility] HermannANEMIA MUNPN9435-01-31 09:04:70145Ghwaplsq HermannANEMIA QWXZI2689-08-64 09:04:71458Umytuivu [place] ANEMIA SXZDL3962-21-42 09:04:0022[facility] HermannANEMIA ZUTOO6617-88-72 09:04:00 11[facility] HermannCHEM TVXTW1946-01-87 15:50:0057[facility]annCHEM PANEL 2016-02-15 15:50:0014.7[facility]annCHEM ZEWTY3478-64-43 15:50:008.7[facility] HermannCHEM WFCVN9524-86-06 15:50:0024[facility]annCHEM CUWUM6442-80-09 15:50:0099[facility]annCHEM YKYTN8195-16-25 15:50:003.7[facility]annCHEM OIVZP9574-62-10 15:50:0016[facility] HermannCHEM HACYO2584-03-66 15:50:30872 [facility]annCHEM UBQXK1214-69-75 15:50:85456Lkrckegc HermannCHEM PANEL 2016-02-15 15:50:001.42[facility]annCHEM TZOYY2199-76-35 09:45:0051[facility] HermannCHEM IDMEP3131-14-95 09:45:000.8[facility]annCHEM XPGJU3664-23-54 09:45:0025[facility]annCHEM MTZSO2389-06-94 09:45:0015[facility]annCHEM QQKSI7513-64-97 09:45:0062[facility]annCHEM SCPNU8453-06-73 09:45:004.8 [facility]annCHEM RUHJE0258-73-33 09:45:000.5[facility]annCHEM PANEL 2016-02-14 09:45:009.0[facility]annCHEM ECZND6986-83-37 09:45:50958Hvfijlgx HermannCHEM FHVIL9800-56-52 09:45:0024[facility] HermannCHEM YHRVA0704-82-14 09:45:30811Ppajhhyb HermannCHEM XCZFO6953-85-52 09:45:0017[facility] HermannCHEM GDJMR0512-71-77 09:45:004.1[facility]annCHEM PJBKQ5715-39-49 09:45:0014.1 [facility]annCHEM OXCOC0127-21-01 09:45:002.3[facility] HermannCHEM PANEL 2016-02-14 09:45:007.1[facility] HermannCHEM ETMSV3071-90-46 09:45:001.55[facility] HermannCHEM RTCRF8059-51-72 09:45:56638Qhvsctdc HermannCHEM WQUSD2392-30-38 09:45:0011[facility] YawqukvLZPPVPIZTG0672-84-93 09:45:007.7[facility] HJNWQHRPGO1856-82-46 09:45:0025.4[facility] VztcztyGARUZNUNTJ4909-60-33 09:45:00 Test Item Value Reference Range Interpretation Comments MCH (test code = MCH) 32.7 pg 27.0-31.0 Memorial JpmwljjWDHRLQNNUF7427-73-59 09:45:0096.6[facility]annHEMATOLOGY 2016-02-14 09:45:86672Xbryxiei QftbbrkKMJDHOCMDG3553-63-46 09:45:0014.7[facility] RtbdineQLXAJNQQTD0601-72-33 09:45:0033.8[facility] UkzlwgqLOSCLVVOZX7763-18-81 09:45:008.4[facility] FdqbipyOMCJBIJCOZ7990-64-59 09:45:008.6[facility] GKWUUTCEBK6282-35-77 09:45:002.63[facility] LfbhyagFJQLRLZYIW7078-49-53 09:45:00 1.5[facility] TxajpzvTMPYLIADOO1178-03-56 09:45:000.2[facility]annHEMATOLOGY 2016-02-14 09:45:000.8[facility] ArtjemjDDMYSKLCFV8765-05-87 09:45:000.1[facility] JyteilcVXHQZGOWVU0392-50-34 09:45:009.9[facility] QlouvmzAHEZZLMLEU6367-69-23 09:45:0017.2[facility] BtxronkKVPNUIVYVM4102-76-56 09:45:0069.8[facility] GUMAADLIEE8351-24-82 09:45:002.2[facility] BvinwhsKGBQHWWOWH7950-78-13 09:45:005.9 [facility] PakdnggJOALSNPWTQ4233-56-19 09:45:000.9[facility] HermannTOXICOLOGY 2016-02-14 09:45:0014.8[facility] HermannCHEM WSWAS4077-77-95 09:54:006.3[facility] HermannCHEM CXPJS7049-73-61 09:54:000.7[facility] HermannCHEM XWJWF6141-49-26 09:54:0012[facility] HermannCHEM DPDJB9898-81-04 09:54:003.8[facility] HermannCHEM FKUYS2407-84-77 09:54:0012[facility] HermannCHEM LEXDE4482-63-19 09:54:0061 [facility]annCHEM RFMDD5012-30-52 09:54:002.5[facility] HermannCHEM PANEL 2016-02-13 09:54:0026[facility] HermannCHEM IZPMC2892-45-83 09:54:000.4[facility] HermannCHEM GXZII7431-54-73 09:54:0013.5[facility] HermannCHEM QRBOW0146-63-50 09:54:0057[facility] HermannCHEM POUTD3930-24-49 09:54:0027[facility] HermannCHEM SMVQA5504-74-85 09:54:008.7[facility] HermannCHEM KBDDN1227-41-15 09:54:50591 [facility]annCHEM LEVBW8063-56-96 09:54:004.5[facility] HermannCHEM PANEL 2016-02-13 09:54:001.42[facility] HermannCHEM BZXUN4534-19-70 09:54:88057Ktyuqhff HermannCHEM VTCXP2022-05-28 09:54:08361Trocyfbu HermannCHEM ZCEWS1681-85-28 09:54:0017[facility] QcnhneiMGVEAUXTMG4559-43-17 09:54:009.3[facility] HermannCHEM ZZZJY8972-41-43 17:04:004.9[facility] HermannCHEM HXIDX1954-77-79 17:04:001.8 [facility] SfcnsamMIHSVYUZQU0813-01-17 17:04:0070.5[facility]annHEMATOLOGY 2016-02-12 17:04:0018.0[facility] KqhxilqDOHEAHLKRA9981-16-66 17:04:009.7[facility] SzxmnyhHTVDOWUVYT9080-27-28 17:04:006.4[facility] XjwntdxBKJSXMBILN0217-35-28 17:04:001.6[facility] XfikniaVYCNJUKIAG8016-42-06 17:04:000.5[facility] DEUNFRIYXY7719-06-76 17:04:001.3[facility] MzjkuryHTNZJOBXPP5444-48-68 17:04:000.9 [facility] XcusxhpSATHERMITL6718-37-38 17:04:000.1[facility] HermannHEMATOLOGY 2016-02-12 17:04:15708Togjjcoj PcpaurtFWUFYDQWOM1677-19-26 17:04:006.9[facility] GytqycoVOJSMWXQMW2404-38-18 17:04:0033.9[facility] RkfckcvUEXIOBSZSI3928-05-46 17:04:0015.1[facility] FovpnowRVUDALUQUM3820-11-83 17:04:002.69[facility] QMUMYGRXEV1336-66-19 17:04:0096.5[facility] AawgiynEPVRULGUKP1985-64-78 17:04:00 9.1[facility] RiejrkkXNHLXIVQVX3499-23-12 17:04:008.8[facility]annHEMATOLOGY 2016-02-12 17:04:0026.0[facility] GxobslyKTBAMBFTHL0667-39-95 17:04:00 Test Item Value Reference Range Interpretation Comments MCH (test code = MCH) 32.7 pg 27.0-31.0 [facility] PbsokvrMIUWDBFQLL7999-24-74 08:18:007.7[facility]annHEMATOLOGY 2016-02-12 08:18:001.5[facility] NdkhrpzQCVGQJADZT9248-37-53 08:18:000.2[facility] VfeqdjiIQGVMQYDCM7780-84-07 08:18:000.2[facility] QhrmbhwATQSPDPHUG3348-86-18 08:18:001.2[facility] BcvlaopCIEVBAWDQN4085-90-24 08:18:0069.4[facility] FROTGTINKL7551-94-66 08:18:0010.5[facility] UpkqdaeDYVTHTWBDI0474-22-26 08:18:00 1.6[facility] SlgrfdfLXSFKUJZNA4124-18-83 08:18:001.9[facility]annHEMATOLOGY 2016-02-12 08:18:0017.0[facility] HxwcwpsNIWINRKLLI7744-58-37 08:18:0028.9[facility] EmfkmwxBGDZBGTFGD6193-13-47 08:18:0033.6[facility] XjbmtjoLLMKCPSDBN3747-97-48 08:18:0014.6[facility] VxapzfbNUNBEUHDPR7232-88-38 08:18:0096.6[facility] YTSARFTOUY8343-28-76 08:18:00 Test Item Value Reference Range Interpretation Comments MCH (test code = MCH) 32.4 pg 27.0-31.0 [facility] EkxusfcMPYZWEDPRP7804-26-44 08:18:009.7[facility]annHEMATOLOGY 2016-02-12 08:18:0011.1[facility] FrljlxnLTUPMZJLYW6888-06-18 08:18:002.99[facility] BxwsjpsGOJKHLXSGQ0266-18-00 08:18:05213Uclmpvmx SxvelkkXIQQTQYFDA4620-46-99 08:18:007.4[facility] JlomgqlWPBKDDAAKH9600-24-59 09:02:0010.9[facility] VEXZXSINKP5931-76-89 08:14:000.1[facility] FjshzkuXVQDUTIEEO0981-93-51 08:14:00 14.1[facility] FtucwjcCBMPWBEOYD0594-33-57 18:46:00>100[facility]BL[facility] BANK WIIMGWQ2282-07-09 10:38:00Negative (02/08/16 5:38 AM)[facility]annCHEM ITFPQ0989-75-82 10:38:000.11[facility] HEQIY4690-49-63 05:36:00 Negative (02/05/16 12:36 AM)[facility] IQPFO8018-89-94 05:36:001 [facility] RRAXG9316-58-20 05:36:00Negative (02/05/16 12:36 AM) [facility] MZYPD1007-11-94 05:36:00Negative *NA*(02/05/16 12:36 AM)[facility] BSCHL8527-48-19 05:36:00Negative (02/05/16 12:36 AM) [facility] MUSPU8605-84-88 05:36:00Clear (02/05/16 12:36 AM) [facility] OUJIA8289-90-55 05:36:006.0[facility] ATSLP9102-31-56 05:36:00Light Yellow *NA*(02/05/16 12:36 AM)[facility] OFPUR2902-64-05 05:36:001.006[facility] FHJIB6107-44-01 21:31:00Negative (02/01/16 4:31 PM)[facility] CPCTK9635-07-86 21:31:00Negative (02/01/16 4:31 PM)[facility] QFOAY3032-91-35 21:31:00Negative (02/01/16 4:31 PM)[facility] CNBXQ3166-75-28 21:31:001[facility] XEYCB7481-30-14 21:31:003[facility] AETAE0876-55-05 21:31:005.5[facility] EVRCB9777-14-49 21:31:00Negative *NA*(02/01/16 4:31 PM)[facility] TJGZN5146-54-48 21:31:00Yellow *NA*(02/01/16 4:31 PM)[facility] ZZJOZ1807-65-80 21:31:00Clear (02/01/16 4:31 PM)[facility] KSRBN0377-83-47 21:31:00 1.007[facility] OAEJ2465-85-85 21:31:0041[facility] CHEM 2016-02-01 21:31:0070.40[facility] MBCV6751-99-20 21:31:0038[facility]annCARDIAC CDBBZAJ9875-38-10 20:44:00<0.02[facility]annCHEM PANEL 2016-01-31 20:44:000.13[facility]annCHEM MUZPS9508-46-38 20:44:001.7[facility]annCHEM WUGJB4608-24-98 20:44:000.4[facility]annCHEM VVDMZ9765-31-64 20:44:007.7[facility]annCHEM VMAXD5759-39-56 20:44:0019[facility]annCHEM YCDJJ1352-89-05 20:44:0023[facility]annCHEM KJDDK5380-56-83 20:44:0058 [facility]annCHE[facility] FNLMC1001-80-92 20:44:002.8[facility]annCHEM PANEL 2016-01-31 20:44:000.6[facility]annCHEM JFHIW8110-64-53 20:44:004.9[facility]annCHEM RKXYN3446-77-85 20:44:0015[facility] KrcwudiCVVIJNKWYL7057-46-62 20:44:00 Test Item Value Reference Range Interpretation Comments PTT (test code = PTT) 42.4 s 22.9-35.8 [facility] WotfwouNCYBAVNADF7802-95-89 20:44:00 Test Item Value Reference Range Interpretation Comments PT (test code = PT) 14.6 s 12.0-14.7 [facility] RjuviinGEHXAKSZXV1379-23-09 20:44:001.11[facility] HermannLIPIDS 2015-02-16 05:00:0077[facility] NcmuqwbTSZZNM5811-09-74 05:00:0029[facility] PWPXHA8221-53-86 05:00:05708Mkfomlbb AhsedmwOMAAJX0539-26-04 05:00:007.66 [facility] KizjeruTYALWH2423-33-83 05:00:84319Csduejyw AxckvigOUYDPQ9414-63-28 05:00:83346Qcawmttd HermannCARDIAC AVDCZRR8270-90-72 04:23:000.8[facility] CARDIAC HPSCAMJ0166-61-20 04:23:000.6[facility] HermannCARDIAC PZANVRK2965-16-84 04:23:00<0.02[facility]annCARDIAC VQRRPIH1873-59-67 04:23:0076[facility]annCARDIAC JFXWETY9606-86-41 00:27:00<0.02[facility]annCARDIAC ENZYMES 2015-02-16 00:27:0089[facility]annCARDIAC UZCKHZL0456-54-71 00:27:001.0 [facility]annCARDIAC FXBTPYV2043-62-23 00:27:000.9[facility] HermannTHYROID GBHYK9371-45-08 00:27:002.000[facility]annCARDIAC AVWNSFD5786-36-60 19:22:00 0.8[facility]annCARDIAC CBEUZQS7533-45-98 19:22:00<0.02[facility] CARDIAC IPAWBTO9851-11-02 19:22:49889Kjxqqkvr HermannCARDIAC GUSSYTH6042-88-49 19:22:000.9[facility] HermannCHEM YQLKR6353-77-72 19:22:0070[facility] HermannCHEM KMCWO7091-17-45 19:22:0087[facility] HermannCHEM IROPF3261-93-64 19:22:0023 [facility] HermannCHEM MEQTH6860-93-12 19:22:0027[facility]annCHEM PANEL 2015-02-15 19:22:003.4[facility]annCHEM MAJLB6352-12-60 19:22:007.7[facility] HermannCHEM ZKICU1316-47-55 19:22:000.8[facility]annCHEM BEQJV0930-28-72 19:22:004.3[facility]annCHEM NNDZV6748-60-78 19:22:006[facility]annCHEM TPZMJ9961-21-15 19:22:0011.8[facility]annCHEM SNWUA4009-77-68 19:22:000.4 [facility]annCHEM EAKMO0383-88-54 19:22:009.2[facility] HermannCHEM PANEL 2015-02-15 19:22:0025[facility]annCHEM LKMXF0247-37-18 19:22:0088[facility] HermannCHEM SOEYS0246-31-35 19:22:03418Bihtcpas HermannCHEM FECLO5962-84-52 19:22:004.8[facility] HermannCHEM FWFPA0288-01-50 19:22:81815Gvpomsan HermannCHEM YSCFC9235-55-62 19:22:001.2[facility] HermannCHEM HVIHB0981-32-04 19:22:007 [facility]annCHEM HNATX5634-25-58 19:22:002.0[facility] HermannHEMATOLOGY 2015-02-15 19:22:000.4[facility] EgptmkgRTDCLFCPCE2698-00-64 19:22:000.0[facility] XwbthceIESLKSNHTR1178-23-18 19:22:004.6[facility] VqbtbcbGRXTVBDVZF3643-71-46 19:22:000.8[facility] OqvnfreOFPZXXKMGY4837-73-28 19:22:0010.3[facility] CDCXLPOWRO4361-41-53 19:22:005.0[facility] AprprprJFQQLVUVKY7389-79-79 19:22:000.4 [facility] JysejynGEDOIOPROA4076-68-25 19:22:0025.7[facility] HermannHEMATOLOGY 2015-02-15 19:22:002.0[facility] TukgathNJLQUKDMFV5783-35-23 19:22:0058.6[facility] HzmpruwSBXAOQSHLW9361-40-15 19:22:001.00[facility] TgeeqtdWHPMISQPBO4548-16-22 19:22:00 Test Item Value Reference Range Interpretation Comments PT (test code = PT) 13.5 s 12.0-14.7 [facility] IsxwxjyDEOQOJLMYD3541-75-45 19:22:00 Test Item Value Reference Range Interpretation Comments PTT (test code = PTT) 33.7 s 22.9-35.8 [facility] ZmntugcGJEHGTNFCU9062-94-06 19:22:86390Rxfpdeds HermannHEMATOLOGY 2015-02-15 19:22:007.8[facility] RssdapzRRCPCBAIVD4893-76-06 19:22:00 Test Item Value Reference Range Interpretation Comments MCH (test code = MCH) 33.3 pg 27.0-31.0 [facility] BjzolgbXTDXSSPFGP6370-23-00 19:22:004.62[facility] HermannHEMATOLOGY 2015-02-15 19:22:0097.4[facility] EueaxrgKYGUERGYRM7959-21-76 19:22:0015.4[facility] DhyymueWSZWQANDFZ3080-98-51 19:22:0045.0[facility] SybwllaHXNDOTHSUZ9628-76-20 19:22:0034.2[facility] MfmhltyKXDPPBDZSQ2038-00-97 19:22:007.0[facility] RTTIEDWTGP6833-03-31 19:22:0016.0[facility] HermannDRUG RUQXRT2156-46-37 20:10:00 Negative *NA*(01/23/15 3:10 PM)[facility]annDRUG HLTFFE5788-69-61 20:10:00 Negative *NA*(01/23/15 3:10 PM)[facility]annDRUG EDNBEK5961-66-76 20:10:00 Negative *NA*(01/23/15 3:10 PM)[facility]annDR[facility] RZYDIO3328-32-23 20:10:00 Negative *NA*(01/23/15 3:10 PM)[facility]annDR[facility] LCZZGM6754-03-79 20:10:00See Note (01/23/15 3:10 PM)[facility]annDR[facility] TCHKWM0850-31-75 20:10:00Negative *NA*(01/23/15 3:10 PM)[facility]annDR[facility] JLJVUC0263-40-47 20:10:00Positive *ABN*(01/23/15 3:10 PM)[facility]annDRUG WSKGTC4526-39-76 20:10:00Negative *NA*(01/23/15 3:10 PM)[facility]UR[facility] AND KOGRD5612-63-91 20:10:00Negative (01/23/15 3:10 PM)[facility] RIRRI2626-61-45 20:10:00Negative (01/23/15 3:10 PM)[facility] MQNAP2117-88-64 20:10:003[facility]UR[facility] AND SYDCP6308-58-38 20:10:00<1[facility]UR[facility] STOOL 2015-01-23 20:10:005[facility]UR[facility] AND UWBJS0949-64-55 20:10:00Yellow *NA*(01/23/15 3:10 PM)[facility] BTAUX4109-54-90 20:10:006.0 [facility] VHCBW2636-29-61 20:10:001.017[facility]UR[facility] AND ZMYYP3430-74-69 20:10:00Slight *ABN*(01/23/15 3:10 PM)[facility] PBROL7182-00-86 20:10:00Moderate *ABN*(01/23/15 3:10 PM)[facility] AND FBVXZ5993-16-02 20:10:00Negative *NA*(01/23/15 3:10 PM)[facility]annCARDIAC QFZXPXT4892-93-03 19:55:000.7[facility] HermannCARDIAC MKCTSJP1406-27-65 19:55:00 <0.02[facility]annCARDIAC LOSMRXQ1375-43-24 19:55:28519Hyuanhhh [facility] CARDIAC AHKANJG0957-12-15 19:55:001.2[facility] HermannCHEM STHYH3976-59-42 19:55:0054[facility] HermannCHEM TACFW8102-39-21 19:55:001.0[facility] HermannCHEM WDDIG5727-60-00 19:55:0023[facility] HermannCHEM HCWTU5136-14-75 19:55:004.3 [facility] HermannCHEM BOYKB8418-61-65 19:55:0039[facility] HermannCHEM PANEL 2015-01-23 19:55:008.8[facility] HermannCHEM VNPWJ7939-17-05 19:55:009.3[facility] HermannCHEM OVLGQ0197-87-82 19:55:0020.5[facility] HermannCHEM VPCRQ1125-39-39 19:55:004.5[facility] HermannCHEM SLFBQ0740-00-33 19:55:0010[facility] HermannCHEM WESGV4674-98-11 19:55:000.5[facility] HermannCHEM VOIYL0750-51-45 19:55:0088 [facility]annCHEM HDJOP0816-88-23 19:55:004.5[facility] HermannCHEM PANEL 2015-01-23 19:55:34276Krljyxaz HermannCHEM FPAKG6621-40-48 19:55:0017[facility] HermannCHEM QKWTU7142-38-28 19:55:95532Hfaqxpwf HermannCHEM KLIAE1795-30-55 19:55:50844Ucoegtlb HermannCHEM BKTCW4505-82-49 19:55:001.5[facility] HermannCHEM EYCUO7324-81-01 19:55:0015[facility] AoxqcnhOIIMQJBTQL9627-35-14 19:55:0089.7 [facility] ZtplypyTKZKHUDROX8464-07-08 19:55:0011.6[facility] HermannHEMATOLOGY 2015-01-23 19:55:000.8[facility] QwwhlyoGXDDXUIOSG9675-89-64 19:55:006.5[facility] RhkcteqFOSXAIYDSC6777-90-18 19:55:003.2[facility] IzyajpxEYFFPGKWTT7535-21-68 19:55:000.4[facility] DouofwjLOBPYUJOSV9175-93-10 19:55:000.0[facility] VMQHXHEAFM6587-12-09 19:55:000.1[facility] WlctsleDVWSWCELTF5470-23-43 19:55:000.2 [facility] GffvsdoFDPSSMGLQP3348-33-54 19:55:000.4[facility] HermannHEMATOLOGY 2015-01-23 19:55:00 Test Item Value Reference Range Interpretation Comments PT (test code = PT) 14.2 s 12.0-14.7 [facility] TylnmasWTUHBZBUHH2688-87-52 19:55:001.07[facility] HermannHEMATOLOGY 2015-01-23 19:55:00 Test Item Value Reference Range Interpretation Comments PTT (test code = PTT) 31.2 s 22.9-35.8 [facility] MsvawstTOZUYDJPEG0237-68-61 19:55:008.3[facility] HermannHEMATOLOGY 2015-01-23 19:55:0032.8[facility] PudyffvHKITNGPEPY8916-21-83 19:55:0017.0[facility] OqqopliVBFVLTUGPV0307-29-29 19:55:76130Lznilrcs ZtvgkczUPIJPMPYYE8121-59-49 19:55:0051.7[facility] BdxdqnhDQJXDKVZQH9048-78-86 19:55:0097.9[facility] GHOTNPVMON6148-68-52 19:55:00 Test Item Value Reference Range Interpretation Comments MCH (test code = MCH) 32.1 pg 27.0-31.0 [facility] QyugnqiRJFSYEIRVP1258-68-32 19:55:0017.0[facility] HermannHEMATOLOGY 2015-01-23 19:55:0012.9[facility] QhaujpxIQFDOVXFYS5068-73-16 19:55:005.28[facility] MlsowugRBMNNWDVFM3466-48-83 19:55:00<0.003[facility] HermannTOXICOLOGY 2015-01-23 19:55:00<3[facility] HermannCHEM NMKLA7034-50-94 17:07:0071[facility] HermannCHEM RUZYQ2130-36-17 17:07:000.3[facility] HermannCHEM THSYK5790-90-53 17:07:0018[facility] HermannCHEM GKNIA9693-56-67 17:07:0088[facility] HermannCHEM FHPIR9024-56-89 17:07:0036[facility] HermannCHEM BEEVW2035-11-73 17:07:004.0 [facility] HermannCHEM NZGMP4104-22-78 17:07:008.8[facility] HermannCHEM PANEL 2013-11-20 17:07:0022[facility] HermannCHEM IYOYZ7434-86-20 17:07:009.5[facility] HermannCHEM PTAOU1266-55-49 17:07:32142Xlrxrzir HermannCHEM BPBAS6707-28-88 17:07:25034Jvwdizzw HermannCHEM ECJSL9773-64-54 17:07:004.2[facility] HermannCHEM ZUGDS1643-18-66 17:07:001.2[facility] HermannCHEM NDMRP9309-51-51 17:07:65958 [facility]annCHEM JNQSK1954-42-08 17:07:007[facility] HermannCHEM PANEL 2013-11-20 17:07:004.8[facility] HermannCHEM CEKQF4538-22-22 17:07:000.8[facility] HermannCHEM PBOKA0208-12-84 17:07:006[facility] HermannCHEM XQAXV7825-96-08 17:07:0014.2[facility] UisxfikJXGNGJRFCM8304-43-92 17:07:003.2[facility] ZHQSSGHVKN9312-88-30 17:07:0016.7[facility] FgsnjpcBPXRQNORPJ7405-53-88 17:07:00 6.2[facility] VguoppoSEOYVTZLGU6404-56-66 17:07:0073.3[facility] HermannHEMATOLOGY 2013-11-20 17:07:000.6[facility] ZqrlckuGWWRSEIJKH6795-26-95 17:07:000.1[facility] ApajfuaPBOWYQKOUO0735-30-59 17:07:000.3[facility] JuquzoaTHDVXCTUDF6866-31-22 17:07:000.6[facility] AqfciutEDCUZAOJPI5352-32-79 17:07:001.6[facility] HNMAIVWTMI8504-66-93 17:07:006.8[facility] UotfisxCZAKRTDTOG3817-01-63 17:07:23998 [facility] GoohpjtUECACUYDBW6818-66-65 17:07:007.6[facility] HermannHEMATOLOGY 2013-11-20 17:07:0033.8[facility] BanozkeHLVBQVRWJB5631-56-22 17:07:0014.2[facility] LrqvrtwCFKRYWDKAM4607-06-77 17:07:00 Test Item Value Reference Range Interpretation Comments MCH (test code = MCH) 33.1 pg 27.0-31.0 [facility] XvyssqdDDUFXWRAXX1863-68-68 17:07:0097.9[facility] HermannHEMATOLOGY 2013-11-20 17:07:0014.2[facility] XbqhpbiYZESJUQPAP0670-64-38 17:07:0042.1[facility] VyffcypRPEVZOIAEM5542-52-25 17:07:009.3[facility] DmxwhloBXLEVQSRES8936-78-89 17:07:004.30[facility] EifgwygCIRRCZSOSO9161-35-54 17:07:007.7[facility] HermannCHEM XDCNP6082-92-05 19:25:0047[facility] HermannCHEM GOLIF0527-43-80 19:25:001.7 [facility] HermannCHEM NJWUC9875-23-98 19:25:0014[facility] HermannELECTROLYTES 2013-11-17 19:25:004.3[facility] ZbedbhfYQGIAMSLZU7187-53-61 19:25:0036.8[facility] KakrkjaBEVNGHDURK8860-09-55 19:25:0097.6[facility] QvxjeqeRAXQERBDTA4133-39-15 19:25:00 Test Item Value Reference Range Interpretation Comments MCH (test code = MCH) 33.2 pg 27.0-31.0 [facility] RevvrikQAMTZYWRSH8598-93-03 19:25:0012.5[facility] HermannHEMATOLOGY 2013-11-17 19:25:007.7[facility] DhhiqggZDZLLVEROK6500-72-97 19:25:003.77[facility] ZxfrkwvOTEKTQQGKL7743-69-17 19:25:0014.0[facility] XchittgPGBRTDFDSM8687-82-48 19:25:75780Iazicswd NrpdwwcXBYPWSKQEG0354-40-66 19:25:007.7[facility] XQYDFGZOYU8504-31-00 19:25:0034.0[facility] DcsyrmiGBAOXFMQVX1954-54-36 19:25:00 5.7[facility] NnrqapnUFIUUZSQGQ8221-40-64 19:25:004.3[facility] HermannHEMATOLOGY 2013-11-17 19:25:000.0[facility] RwafpzeIFFOMDPSTG7234-68-51 19:25:000.3[facility] IkcgoayRHZFINZDTR7078-59-44 19:25:005.1[facility] RwdaffxHVDNFVLHUH0809-08-09 19:25:0016.3[facility] SfgwiigVGKUNTDUVY4898-31-57 19:25:001.2[facility] QTMVJJWQSK5112-62-96 19:25:000.3[facility] UvgemnaXFDIJYHEEF9494-34-56 19:25:000.4 [facility] OcmcivnYYADVVTRCX0190-05-23 19:25:0074.0[facility] HermannTOXICOLOGY 2013-11-17 19:25:0024.4[facility] HermannCHEM HIOAA1461-88-93 18:20:0054[facility] HermannCHEM ULFWY4599-84-83 18:20:001.5[facility] HermannCHEM UFWDL8383-60-15 18:20:0011[facility] EiashevKMGFEPEYFXOU4461-27-44 18:20:004.5[facility] RUCSKEQQUQ0103-43-85 18:20:00 Test Item Value Reference Range Interpretation Comments MCH (test code = MCH) 32.7 pg 27.0-31.0 [facility] PsenmohDGCSVDUJHV3898-55-74 18:20:0033.6[facility] HermannHEMATOLOGY 2013-11-13 18:20:13799Wiripmyo DiltdvjKJFFATFSTO7176-78-36 18:20:0014.0[facility] DmffjrjLEZZJJDRIW4536-42-55 18:20:007.4[facility] ApsailbRCVXEVIDVP5802-80-28 18:20:0012.2[facility] HkwplfxZIVNJPEZKW3146-49-37 18:20:003.73[facility] CFBPFMEGTY7876-20-56 18:20:0097.6[facility] UqvzktvMQVSTZVRXI4951-34-01 18:20:00 36.4[facility] CkezzdtSCMIKYGOTR4042-57-25 18:20:009.7[facility] HermannHEMATOLOGY 2013-11-13 18:20:000.1[facility] HjdoidcLPHWSPGAUI8868-36-42 18:20:002.0[facility] DxtokgvTKUNVSZDEG9850-88-06 18:20:000.7[facility] WdbrjsrJKLCDHNSER1103-57-89 18:20:000.4[facility] IemxolbFRHWNMPUFB9168-99-14 18:20:000.6[facility] QDEPOSTRYV7438-71-91 18:20:006.6[facility] RpvlrrmFJVWYBCVQZ7860-42-72 18:20:00 20.5[facility] SqrhxgrHLAOVUMTIJ9338-28-75 18:20:007.3[facility] HermannHEMATOLOGY 2013-11-13 18:20:003.7[facility] BtkblkrZELGZHTSNL4863-34-32 18:20:0067.9[facility] EnxkbdzRDWEZXNLFA8211-63-59 18:20:0024.1[facility]
== END 2020-02-29 18:23 | disposition home or self-care (01) ==
LOC: ER 14:08
PROC: 0RSKXZZ Reposition Left Shoulder Joint, External Approach (ICD-10-PCS; principal; 2020-02-29)
DX: M24.412 Recurrent dislocation, left shoulder (principal); E11.22 Type 2 diabetes mellitus with diabetic chronic kidney disease; N18.9 Chronic kidney disease, unspecified; Z79.82 Long term (current) use of aspirin; J44.9 Chronic obstructive pulmonary disease, unspecified; F17.210 Nicotine dependence, cigarettes, uncomplicated
CPT/HCPCS: 93005 ×2; 85025; 80048 ×2; 36415; 80320; 83735; 80329 ×2; 85610; 80076; 80307 ×8; 85730; 81003; 84484; 83880; 70450; 72125; 71045; 73030; 96375; 96374; 99285; 23650; Q2009

== ENCOUNTER 2020-08-25 09:23 | Emergency (ER) | payer OTHER ==
--- OUTSIDE RECORDS SUMMARY | 2020-08-25 09:32 | XMS REPORT | Continuity of Care Document ---
:1965 Author Organization [facility] t Address [address] [address] [place] [address] Care Team Providers Name Role Phone Janette [...] Expiration Date S briseida AETNA - MEDICARE [id number] AARON Barrios MGD CAREAETNA 00:00:00 - Medical MEDICARE HMO Center [id number] [place] [id number] Contracted Problems Condition Condition Condition Status Onset Resolution Last Treating Co mments Source Name Details Category Date Date Treatment Clinician Date Seizures Se[facility] Metabolic Metabolic Disease Active 2016-[address] [facility] acidosis [facility]osis 06[facility]20 [facility] H/O ETOH H/O ETOH Disease [facility] Acute Acute Disease Active 2016-[address] [facility] kidney kidney 06-17 [facility] Hypertensi Hypertensi Disease Active 2016-05 [facility] [...] Mem oria 06-04 09:38:00 l ANEMIA 00:00: [place] 00 Active 04/04/2016 [facility] OTHER Diagnosis Active 2015-052016-03-13 Mem oria 19:39:00 l OTHER 00:00: [place] 00 Active 03/13/2016 [facility] LEFT FOOT Diagnosis Active 2016-01-31 Memoria SORES 01-30 22:38:00 l LEFT 00:00: [place] FOOT SORES 00 Active 01/31/2016 [facility] FOOT Diagnosis Active 2016-02-12 Mem oria GANGRENE 01-30 20:08:00 l FOOT 00:00: Kai GANGRENE 00 Active 01/31/2016 [facility] CHEST PAIN Diagnosis Active 2015-02-15 Memoria 02-15 18:21:00 l CHEST 00:00: [place] PAIN 00 Active 02/15/2015 [facility] CP Diagnosis Active 2015-02-15 Mem oria 02-15 16:10:00 l CP 00:00: Kai 00 Active 02/15/2015 [facility] LEFT WRIST Diagnosis Active 2015-02-09 Memoria PAIN 9-15 16:02:00 l LEFT 00:00: Kai WRIST PAIN 00 Active 02/09/2015 [facility] AMS Diagnosis Active 2015-01-23 Mem oria 01-23 15:36:00 l AMS 00:00: [place] 00 Active 01/23/2015 [facility] WOUND Diagnosis Active 2014-02-12 Mem oria INFECTION 10-20 13:06:00 l V WOUND 00:00: [place] NECFAS;CHR INFECTION 00 ONIC V OSTEOMY NECFAS;CHR ONIC OSTEOMY Active 10/20/2013 [facility] Acute Problem Active 2016-04-08 Memor ia osteomyeli 03:42:03 l tis Acute Kai (disorder) osteomyeli tis (disorder) Active Problem 04/08/2016 [facility] Congestive Problem Active 2016-04-08 M emoria heart 03:42:03 l failure Kai (disorder) Congestive heart failure (disorder) Active Problem 04/08/2016 [facility] Hypertensi Problem Active 2016-04-08 M emoria ve 03:42:03 l disorder, Kai systemic Hypertensi arterial ve (disorder) disorder,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 (disorder) Active Problem 04/08/2016 [facility] Bronchitis Problem Active 2016-04-08 M emoria (disorder) 03:42:03 l [place] Bronchitis (disorder) Active Problem 04/08/2016 [facility] Chronic Problem Active 2016-04-08 Ed bandar obstructiv 03:42:03 l e lung Chronic Kai disease obstructiv (disorder) e lung disease (disorder) Active Problem 04/08/2016 [facility] Epistaxis Problem Active 2016-04-08 Me moria (disorder) 03:42:03 l [place] Epistaxis (disorder) Active Problem 04/08/2016 [facility] History of Problem Active 2016-04-08 M emoria - 03:42:03 l infectious History Her cook disease of - (context-d infectious ependent disease category) (context-d ependent category) Active Problem 04/08/2016 [facility] History of Problem Active 2016-04-08 M emoria amputation 03:42:03 l of lesser History Herm delisa toe of (situation amputation ) of lesser toe (situation ) Active Problem 04/08/2016 [facility] History of Problem Active 2016-04-08 M emoria - 03:42:03 l cardiovasc History Her cook ular of - disease cardiovasc (context-d ular ependent disease category) (context-d ependent category) Active Problem 04/08/2016 [facility] Benign Problem Active 2016-04-08 Memor ia prostatic 03:42:03 l hyperplasi Benign Herm delisa a prostatic (disorder) hyperplasi a (disorder) Active Problem 04/08/2016 [facility] CELLULITIS Diagnosis Active 2014-02-12 Memoria OF FOOT 13:06:00 l [place] CELLULITIS OF FOOT Active [facility] AC Diagnosis Active 2014-02-12 Mem oria OSTEOMYELI 13:06:00 l TIS-UNSPEC AC Raudel n OSTEOMYELI TIS-UNSPEC Active [facility] CHEST PAIN Diagnosis Active 2015-02-15 Memoria NOS 18:21:00 l CHEST Kai PAIN NOS Active [facility] GANGRENE, Diagnosis Active 2016-02-12 Memoria NOT 20:08:00 l ELSEWHERE [place] CLASSIFIED GANGRENE, NOT ELSEWHERE CLASSIFIED Active [facility] ANEMIA, Diagnosis Active 2016-04-05 Me moria UNSPECIFIE 09:38:00 l D ANEMIA, [place] UNSPECIFIE D Active [facility] History of Past Illness Condition Condition Condition Status Onset Resolution Last Treating Co mments Source Name Details Category Date Date Treatment Clinician Date Discharge Problem 2015-052016-03-17 2016-03-17 Memoria Diagnosis: 0-18 03:02:37 03:02:37 l Acute on 05:00: Kai chronic Discharge 00 renal Diagnosis: failure Acute on chronic renal failure 03/14/2016 03/17/2016 [facility] Discharge Problem 2015-052016-03-17 2016-03-17 Memoria Diagnosis: 0-18 03:02:37 03:02:37 l Anemia 05:00: Kai Discharge 00 Diagnosis: Anemia 03/14/2016 03/17/2016 [facility] Discharge Problem 2015-052016-03-17 2016-03-17 Memoria Diagnosis: 0-18 03:02:37 03:02:37 l Post-opera 05:00: Raudel n tive pain Discharge 00 Diagnosis: Post-opera tive pain 03/14/2016 03/17/2016 [facility] Discharge Problem 2015-052016-03-17 2016-03-17 Memoria Diagnosis: 0 03:02:37 03:02:37 l Acute 05:00: [place] hypokalemi Discharge 00 a Diagnosis: Acute hypokalemi a 03/14/2016 03/17/2016 [facility] Discharge Problem 2015-02-19 2015-02-19 Memoria Diagnosis: 02-16 07:51:51 07:51:51 l Hyperlipid 14:36: Raudel n emia Discharge 09 Diagnosis: Hyperlipid emia 02/16/2015 02/19/2015 [facility] Discharge Problem 2015-02-19 2015-02-19 Memoria Diagnosis: 02-16 07:51:51 07:51:51 l Hypertensi 14:36: Arudel n on Discharge 00 Diagnosis: Hypertensi on 02/16/2015 02/19/2015 [facility] Discharge Problem 2015-02-19 2015-02-19 Memoria Diagnosis: 02-16 07:51:51 07:51:51 l Angina 14:35: Kai pectoris Discharge 54 Diagnosis: Angina pectoris 5 02/19/2015 [facility] Discharge Problem 2015-02-12 2015-02-12 Memoria Diagnosis: 02-09 09:59:31 09:59:31 l Wrist 05:00: Kai sprain Discharge 00 Diagnosis: Wrist sprain 02/09/2015 02/12/2015 [facility] Discharge Problem 2015-01-26 2015-01-26 Memoria Diagnosis: 01-23 02:07:27 02:07:27 l Epileptic 05:00: Kai seizure, Discharge 00 generalize Diagnosis: d Epileptic seizure, generalize d 01/23/2015 01/26/2015 [facility] Discharge Problem 2015-01-26 2015-01-26 Memoria Diagnosis: 01-23 02:07:27 02:07:27 l Cerebral 05:00: [place] seizure Discharge 00 Diagnosis: Cerebral seizure 01/23/2015 01/26/2015 [facility] Allergies, Adverse Reactions, Alerts Allergy Allergy Status Severity Reaction(s) Onset Inactive Treating Comm ents Source Name Type Date Date Clinician No Known DA Active U 2018-05 [facility] Allergie 0-10 Henson s 00:00: Health 00 are [facility] Morphine Propensi Active Other (See 2016-05 Headache [facility] ty to Comments) 06-16 [facility] - adverse 00:00: Medical reaction 00 [place] s morphine morphine Active Thomas Quinn Social History Social Habit Start Date Stop Date Quantity Comments Source Sex Assigned At [facility] Cigarettes smoked 2017-04-16 2017-04-16 [facility] - current (pack per 00:00:00 00:00:00 [facility] day) - Reported Tobacco use and 2017-04-16 2017-04-16 Current user [facility] - exposure 00:00:00 00:00:00 [facility] Social History 2013-10-21 2013-10-21 [facility] Myriam joann 05:36:39 05:36:39 Smoking Status Start Date Stop Date Source Current every day smoker 2017-04-16 00:00:00 [facility] Medications Ordered Filled Start Stop Current Ordering Indication Dosage Frequency Signature Comments Components Source Medication Medication Date Date Medication? Clinician (SIG) Name Name acetaminoph 2019- No 1{tbl} Take [address] en-codeine 01-01 tablet by Beau es - (TYLENOL 00:00: 23:59 mouth Medical #3) 300-30 00 :00 every 6 Center mg per (six) tablet hours as needed for Pain for up to 4 days. Max Daily Amount: 4 tablets lovastatin Yes 20mg QD Take [address] (MEVACOR) 5-20 by mouth [facility] - 20 MG 20:42: nightly. Medical tablet 31 Center aspirin/shawn Yes 2{packe Take [address] icylamide/c 5-20 t} packets by Evelyn magana (BC 20:42: mouth Medic al HEADACHE 31 daily as Center POWDER needed ORAL) (For headache and pain relief). folic acid 2019- No 1mg QD Take [...] total) by Center mouth daily. levETIRAcet 2019- 2020- No 1000mg Q.5D Take [address] am (KEPPRA) 520 05-19 tablet [facility] - 1000 MG 00:00: 23:59 (1,000 mg Medi mari tablet 00 :00 total) by Center mouth 2 (two) times daily. VENTOLIN 2019 Yes 1{puff} Inhale [address] HFA 90 4- puff by [facility] - mcg/actuati 00:00: mouth via M edical on inhaler 00 inhaler 3 Cent er (three) times daily as needed for Shortness of Breath. lisinopril Yes 10mg QD Take [address] (PRINIVIL,Z 4- by mouth Luke s - ESTRIL) 10 00:00: daily. Medic al MG tablet 00 [place] amLODIPine Yes 10mg QD Take [address] (NORVASC) 4- by mouth [facility] - 10 MG 00:00: daily. Medical tablet 00 [place] Sodium 2015-05 Yes IVPB, 150 Memori a Chloride 1-09 ml/hr, l 0.9% IV 14:00: PRN, Start Herm delisa 00 date: 04/05/16 8:00:00 [employer], Duration: 30, 1,000 ml EPINEPHrine 2015-05 Yes Notes: Memoria 1- MEDICATION l 13:22: WASTE Product Size: 1 mg Product Wasted: ___ mg Solu-CORTEF 2015-05 Yes Notes: Ed bandar 1-09 (Same as: l 13:22: Solu-JOHN F) Benadryl 2015-05 Yes Notes: Memoria 1-09 (Same as: l 13:22: Benadryl) Kai Sodium 2015-05 Yes IV, 0 Memoria Chloride 1-09 ml/hr, l 0.9% IV 13:21: PRN, PRN Raudel n 00 Blood Transfusio n, Start date: 04/05/16 7:21:00 [employer], Duration: 30, 250 ml heparin 2015-05 Yes Notes: Memoria flush 1-09 (Same as: l 13:21: Heparin [place] Lock Flush) BD Normal 2015-05 Yes Notes: Memori a Saline 06-05 (Same as: l Flush 13:21: BD Kai Posiflush) Benadryl 2015-05 Yes Notes: Memoria 06-05 (Same as: l 13:21: Benadryl) [place] Tylenol 2015-05 Yes Notes: Do Memor ia 06-05 not exceed l 13:20: 4 gm/day. Kai (Same as: Tylenol) Acetaminoph 2015-05 No Notes: Ed bandar en 325 MG / 0-18 (Same as: l Hydrocodone 11:34: [place] Denita nn Bitartrate 00 325/5) Do 5 MG Oral not exceed Tablet 4gm/day of [[place] acetaminop 5/325] hen. Acetaminoph 2015-05 No 1 tab, PO, Memoria en 300 MG / 0-18 Q4H, PRN l Codeine 09:54: Pain, X 2 Denita nn Phosphate 00 day, # 12 30 MG Oral tab, 0 Tablet Refill(s) [Tylenol with Codeine #3] Zofran 2015-05 No Notes: Memoria 0-18 (Same as: l 04:18: Zofran) Kai 00 MEDICATION WASTE Product Size: 4 mg Product Wasted: ___ mg Dilaudid 2015-05 No Notes: Memoria 0-18 Same as: l 04:18: Dilaudid [place] 00 Sodium 2015-05 No 500 mL, Memoria [...] bandar 02-16 (Same As: l 20:00: Rocephin). [place] Use with 100 mL NS and infuse [...] oral 02-16 tab, PO, l tablet 12:57: [id number], 0 Denita nn 00 Refill(s) pantoprazol Yes 40 mg = 1 M emoria e 40 mg 02-16 tab, PO, l oral 12:57: Before [place] enteric 00 Breakfast, coated 0 tablet Refill(s) Acetaminoph Yes 1 tab, PO, Memoria en 325 MG / 02-16 Q4H, PRN l Hydrocodone 12:57: Pain Score [place] Bitartrate 00 1-3, 0 5 MG Oral [...] 00 hours metoprolol No Notes: Memor ia -15 (Same as: l 14:00: Toprol XL) May split tab, but do not crush. Alprazolam No Notes: Memor ia 1 MG Oral -15 With food l Tablet 13:19: or milk [Xanax] (Same as: Xanax) vancomycin No 2000 mg: Me moria 9-15 infuse l 10:00: over 2.5 Kai 00 hours Anoro No Anoro Memoria 62.5mcg/25 [...] Dosing per l RPh 19:51: RPh, ., Kai 00 Drug form: MISC, Route: MISC, PRN, PRN Other -See Comment, 02/09/16 14:51:00 CDT, Duration: 30 day, Stop date: 03/10/16 14:50:00 CDT Dilaudid No Notes: Memoria 02-08 Same as: l 18:01: Dilaudid [place] 00 Sodium No 500 mL, Memoria Chloride 02-08 500 ml/hr, l 0.154 17:59: Infuse [place] MEQ/ML 00 Over: 1 Injectable hr, Route: Solution IV, 500, Drug form: INJ, ONCE, Priority: STAT, Dosing Weight 96.023 kg, Start date: 02/09/16 12:59:00 CDT, Duration: 1 doses or times, Stop date: 02/09/16 12:59:00 CDT chlorhexidi No Notes: Ed bandar ne 02-08 (Same As: l gluconate 14:00: Hibiclens) He rmann 40 MG/ML 00 Medicated Liquid Soap pantoprazol No Notes: Ed bandar e 02-08 Tablet l 14:00: should not [place] 00 be chewed or crushed. (Same as: Protonix) Simvastatin No Notes: Ed bandar 02-08 (Same as: l 02:00: Zocor) Kai 00 Cefuroxime No 1.5 gm, Ed bandar 02-08 Route: l 02:00: IVPB, [place] 00 [id number], Dosing Weight 96.023, kg, Start [...] hours Magnesium No Notes: Memori a Oxide -14 (Same as: l 01:04: Mag-Ox [place] 00 400) Magnesium oxide 793dw=181k g elemental magnesium Dose=____m g magnesium oxide (___mg elemental magnesium) Magnesium No Notes: Memori a Sulfate 14 WASTE: F/P l 01:04: - Sink; E Kai 00 - Municipal Trash Bin potassium No Notes: Memori a chloride 9-14 (Same as: l 01:04: Potassium [place] 00 Chloride) sodium No 15 mmol, 5 [...] (Same As: l 500 MG 01:04: Tums) [place] Chewable 00 Calcium Tablet Carbonate 500 mg = 200 mg elemental calcium Dose = mg calcium carbonate ( mg elemental calcium) Calcium No Notes: Memoria Gluconate 02-08 WASTE: F/P l 01:04: - Sink; E [place] 00 - Municipal Trash Bin Albuterol No Notes: SEE Me moria 0.83 MG/ML 02-08 RT l Inhalant 01:04: DOCUMENTAT Her cook Solution 00 ION (Same as: Proventil) Dextrose No 25 gm, 50 Ed bandar 50% Syringe -14 mL, Route: l 01:04: IVP, Drug Kai 00 Form: INJ, Dosing Weight 96.023, kg, PRN, PRN Blood Glucose Results, Start date: 02/08/16 20:04:00 CDT, Duration: 30 day, Stop date: 03/09/16 20:03:00 CDT Docusate No Notes: Memoria 02-08 (Same as: l 01:04: Colace) [place] 00 (Do Not Crush) Glucagon No 1 mg, Memoria 02-08 Route: IM, l 01:04: Drug form: [place] 00 PDR/INJ, PRN, Dosing Weight 96.023, kg, PRN Blood Glucose Results, Start date: 02/08/16 20:04:00 CDT, Duration: 30 day, Stop date: 03/09/16 20:03:00 CDT Acetaminoph No Notes: Ed bandar en 325 MG / 02-08 (Same as: l Hydrocodone 01:04: [place] Denita nn Bitartrate 00 325/5) Do 5 MG Oral not exceed Tablet 4gm/day of acetaminop hen. Acetaminoph No Notes: Do M emoria en 02-08 not exceed l 01:04: 4 gm/day. Kai 00 (Same as: Tylenol) D5W 1/2NS + No Notes: Ed bandar KCL 20mEq/L 02-08 PREMIX IV l 1000ml 01:04: - Do Not (Premix) Alter 1,000 mL WASTE: F/P - Sink; [...] Labetalol No 10 mg, 2 Ed bandar -13 mL, Route: l 14:59: IVP, Drug form: [...] ia 02-07 Child:10-2 l 12:00: 0mg/kg ,<= [place] 00 600mg/day. Protect from light (Same as: Rifadin) Lidocaine 2016-0 No 5 mg, Memoria Hydrochlori 02-07 Route: l de 10 MG/ML 12:00: INTRADERM, [place] Injectable 00 Dosing Solution Weight 98.636, kg, ONCALL, Start date: 02/08/16 7:00:00 CDT, Duration: 30 day, Stop date: 03/09/16 6:59:00 CDT Lactated 0 No 1,000 mL, Ed bandar Ringers 02-07 Rate: 40 l 1,000 mL 11:31: ml/hr, Kai 00 Infuse over: 25 hr, Route: IV, Dosing Weight 98.636 kg, Total Volume: 1,000, Start date: 02/08/16 6:31:00 CDT, Duration: 30 day, Stop date: 03/09/16 6:30:00 CDT Roxicodone No 15 mg, Memor ia 9-12 Route: PO, l 17:00: Drug form: Kai 00 TAB, Q4H, Start date: 02/07/16 12:00:00 CDT, Stop date: 03/08/16 8:00:00 CDT Roxicodone No Notes: Memor ia 9-12 (Same as: l 15:35: Roxicodone [place] 00 ) oxyCODONE 0 No 15 mg, Memori a 10 mg 9 Route: PO, l extended 23:00: Drug form: Her cook release 00 ERTAB, Q6H, Start date: 02/05/16 18:00:00 CDT, Duration: 30 day, Stop date: 03/06/16 12:00:00 CDT Roxicodone 2015-0 No Notes: Memor ia 9-10 (Same as: l 20:21: Roxicodone [place] 00 ) Dilaudid 0 No Notes: Memoria 9-10 Same as: l 20:04: Dilaudid Kai sodium 0 No 1,000 mL, Memori a chloride 02-03 [...] l 02:00: Lipitor) Vancomycin No 1 ea, Thomas a 01-31 Route: l 20:00: MISC, Kai Dosing Weight 97.273, kg, ONCALL, Start date: 02/01/16 15:00:00 CDT, Duration: 1 doses or times, Pharmacy to dose Acetaminoph No Notes: Do M emoria en 325 MG / 01-31 not exceed l Hydrocodone 18:10: 4gm/day of Kai Bitartrate acetaminop 10 MG Oral hen. Tablet (Same as: [[place]wood [place] 10/325] 325/10) Tylenol No Notes: Do Memor [...] ia 01-31 (Same as: l 14:00: Neurontin) [place] 00 24 HR No Notes: Memoria Metoprolol 01-31 (Same as: l Tartrate 14:00: Toprol XL) Her cook 100 MG May split Extended tab, but Release do not Tablet crush. [Toprol] Alprazolam No Notes: Memor ia 2 MG Oral 01-31 With food l Tablet 13:23: or milk (Same as: Xanax) Albuterol No Notes: Memori a 0.833 MG/ML 01-31 (Same as: l / 13:22: Duoneb) Ipratropium 00 [place] 0.167 MG/ML Inhalant Solution Zofran No Notes: Memoria 01-31 (Same as: l 06:24: Zofran) MEDICATION WASTE Product Size: 4 mg Product Wasted: ___ mg Dilaudid No Notes: Memoria 01-31 Same as: l 06:23: Dilaudid [place] 00 Acetaminoph No 1 tab, PO, Memoria en 300 MG / 01-31 BID, PRN l Codeine 04:53: pain, # 28 Herm delisa Phosphate 00 tab, 0 30 MG Oral Refill(s) Tablet lisinopril Yes 10 mg = 1 Me moria 10 mg oral 01-31 tab, PO, l tablet 04:53: Daily, # [place] 00 30 tab, 0 Refill(s) metoprolol Yes [...] tab, PO, l Tablet 04:53: BID, PRN [place] 00 Anxiety, # 20 tab, 0 Refill(s) [...] 01-31 Route: PO, l 03:28: Drug form: [place] 00 TAB, ONCE, Dosing Weight 95, kg, Priority: STAT, Start date: 01/31/16 22:28:00 CDT, Stop date: 01/31/16 22:28:00 CDT [place] No Notes: Ed bandar 01-30 (Same as: l tazobactam 22:57: Zosyn) [...] exceed l Hydrocodone 21:57: 4gm/day of Bitartrate acetaminop 10 MG Oral hen. Tablet (Same as: [[place] 10/325] 325/10) Amlodipine Yes 10 mg, PO, [...] / Refrigerat pneumococca e l capsular polysacchar armandeep type 10A vaccine / pneumococca l capsular [...] / 02-16 (Same as: l Hydrocodone 04:39: [place] Denita nn Bitartrate 00 325/5) Do 5 MG Oral not exceed Tablet 4gm/day of [[place] acetaminop 5/325] hen. Tessalon No Notes: Memoria Perles 02-16 (Same As: l 01:00: Tessalon Kai Perles) "Do Not Crush" Acetaminoph Yes 1 tab, PO, Memoria en 325 MG / 02-16 Q12H, PRN l Hydrocodone 00:48: Pain, # 30 [place] Bitartrate 00 tab, 0 5 MG Oral Refill(s) Tablet [[place] 5/325] Alprazolam Yes 0.25 mg = Me moria 0.25 MG 02-16 1 tab, PO, l Oral Tablet 00:48: BID, PRN rmann [Xanax] Anxiety, Stress, # 20 tab, 0 Refill(s) metoprolol Yes 25 mg, PO, M emoria tartrate 02-16 BID, 0 l 00:48: Refill(s) NS 1,000 mL No 1,000 mL, M emoria 02-15 Rate: 75 l 23:04: ml/hr, Kai Infuse over: 13.3 hr, Route: IV, Dosing Weight 13.636 kg, Total Volume: 1,000, Start date: 02/15/15 18:04:00, Duration: 30 day, Stop date: 03/17/15 18:03:00 Xopenex No Notes: SEE Ed bandar 02-15 RT l 23:03: DOCUMENTAT [place] ION (Same as:Xopenex ) Non-Formul tamara Acetaminoph No Notes: Do M emoria en 325 MG / 02-15 not exceed l Hydrocodone 23:03: 4gm/day of [place] Bitartrate 00 acetaminop 10 MG Oral hen. Tablet (Same as: [[place] 10/325] 325/10) Albuterol No Notes: Memori a 0.833 MG/ML 02-15 (Same as: l / 20:51: Duoneb) [place] Ipratropium 00 [place] 0.167 MG/ML Inhalant Solution [DuoNeb] Aspirin No Notes: Memoria 02-15 Take with l 20:00: food. [place] 00 tramadol Yes 100 mg = 2 Mem oria hydrochlori 02-09 tab, PO, l de 50 MG 21:05: Q6H, PRN Denita nn Oral Tablet 00 pain, X 3 [Ultram] day, # 20 tab, 0 Refill(s) Tylenol No Notes: Do Memor ia 02-09 not exceed l 20:47: 4 gm/day. [place] (Same as: Tylenol) Sodium No 1,000 mL, Memori a Chloride 01-23 1,000 l 0.154 19:39: ml/hr, [place] MEQ/ML 00 Infuse Injectable Over: 1 Solution hr, Route: IV, 1,000, Drug form: INJ, ONCE, Priority: STAT, Dosing Weight 104.545 kg, Start date: 01/23/15 14:39:00, Duration: 1 doses or times, Stop date: 01/23/15 14:39:00 Saline No Notes: Memoria Flush 0.9% 01-23 preservati l 19:39: ve free. [place] Vital Signs Vital Name Observation Time Observation Value Comments Source Systolic blood 2020-01-02 14:29:00 147 mm[Hg] [facility] Diastolic blood 2020-01-02 14:29:00 79 mm[Hg] [facility] Heart rate 2020-01-02 14:29:00 91 /min [facility] Respiratory rate 2020-01-02 14:29:00 18 /min [facility] Oxygen saturation in 2020-01-02 14:29:00 95 /min [facility] - Arterial blood by Medical Ce nter Pulse oximetry Body weight 2020-01-02 06:36:00 85.276 kg [facility] BMI 2020-01-02 06:36:00 24.80 kg/m2 [facility] Body temperature 2020-01-02 06:34:[address] [facility] Systolic (mm Hg) 2016-04-05 18:57:00 Ed rial Kai Diastolic (mm Hg) 2016-04-05 18:57:00 Mem orial Kai Respitory Rate 2016-04-05 18:57:00 Memori al [place] Heart Rate 2016-04-05 18:57:00 [facility] Kai Systolic (mm Hg) 2016-04-05 18:27:00 Ed rial [place] Diastolic (mm Hg) 2016-04-05 18:27:00 Mem orial [place] Respitory Rate 2016-04-05 18:27:00 Memori al Kai Heart Rate 2016-04-05 18:27:00 Memorial [place] Respitory Rate 2016-04-05 17:57:00 Memori al [place] Heart Rate 2016-04-05 17:57:00 [facility] [place] Systolic (mm Hg) 2016-04-05 17:57:00 Ed rial Kai Diastolic (mm Hg) 2016-04-05 17:57:00 Mem orial Kai Temperature Oral (F) 2016-04-05 17:35:00 97.7 F [facility] Kai Temperature Oral (F) 2016-04-05 17:27:00 97.7 F [facility] [place] Temperature Oral (F) 2016-04-05 16:22:00 98.2 F [facility] [place] Weight 2016-04-05 13:20:00 [facility] [place] BMI Calculated 2016-04-05 13:20:00 Memori al [place] Height 2016-04-05 13:20:00 185 cm [facility] [place] Respitory Rate 2016-03-14 11:00:00 Memori al [place] Systolic (mm Hg) 2016-03-14 11:00:00 Ed rial [place] Diastolic (mm Hg) 2016-03-14 11:00:00 Mem orial Kai Systolic (mm Hg) 2016-03-14 10:00:00 Ed rial Kai Diastolic (mm Hg) 2016-03-14 10:00:00 Mem orial Kai Respitory Rate 2016-03-14 10:00:00 Memori al Kai Temperature Oral (F) 2016-03-14 09:00:00 98.8 F [facility] [place] Respitory Rate 2016-03-14 09:00:00 Memori al [place] Systolic (mm Hg) 2016-03-14 09:00:00 Ed rial Kai Diastolic (mm Hg) 2016-03-14 09:00:00 Mem orial Kai Temperature Oral (F) 2016-03-14 05:00:00 98.7 F [facility] [place] Heart Rate 2016-03-14 03:48:00 [facility] [place] Heart Rate 2016-03-13 23:42:00 [facility] BMI Calculated 2016-03-13 23:42:00 Memori al Kai Weight 2016-03-13 23:42:00 [facility] [place] Temperature Oral (F) 2016-03-13 23:42:00 98.6 F [facility] Height 2016-03-13 23:42:00 185.42 cm [facility] [place] Heart Rate 2016-02-18 19:19:00 [facility] [place] Temperature Oral (F) 2016-02-18 19:19:00 98.8 F [facility] Respitory Rate 2016-02-18 19:19:00 Memori al Kai Systolic (mm Hg) 2016-02-18 19:19:00 [facility] Diastolic (mm Hg) 2016-02-18 19:19:00 [facility] [place] Temperature Oral (F) 2016-02-18 15:28:00 98.3 F [facility] Heart Rate 2016-02-18 15:28:00 [facility] Systolic (mm Hg) 2016-02-18 15:28:00 [facility] Diastolic (mm Hg) 2016-02-18 15:28:00 [facility] Respitory Rate 2016-02-18 15:28:00 [facility] [place] Temperature Oral (F) 2016-02-18 12:40:00 98.2 F [facility] [place] Heart Rate 2016-02-18 12:40:00 [facility] [place] Systolic (mm Hg) 2016-02-18 12:40:00 [facility] Diastolic (mm Hg) 2016-02-18 12:40:00 [facility] [place] Respitory Rate 2016-02-18 12:40:00 [facility] [place] Weight 2016-02-08 11:10:00 [facility] [place] BMI Calculated 2016-02-08 10:24:00 [facility] Weight 2016-02-08 10:24:00 [facility] Height 2016-02-08 10:24:00 185.42 cm [facility] Weight 2016-02-01 04:41:00 [facility] [place] BMI Calculated 2016-02-01 04:41:00 [facility] Height 2016-02-01 04:41:00 185.42 cm [facility] [place] Height 2016-01-31 19:21:00 185.42 cm [facility] [place] BMI Calculated 2016-01-31 19:21:00 [facility] Respitory Rate 2015-02-16 18:18:00 [facility] [place] Temperature Oral (F) 2015-02-16 17:50:00 98.0 F [facility] Respitory Rate 2015-02-16 17:50:00 [facility] Heart Rate 2015-02-16 17:50:00 [facility] [place] Systolic (mm Hg) 2015-02-16 17:50:00 [facility] [place] Diastolic (mm Hg) 2015-02-16 17:50:00 [facility] [place] Temperature Oral (F) 2015-02-16 12:35:00 98.2 F [facility] Heart Rate 2015-02-16 12:35:00 [facility] [place] Systolic (mm Hg) 2015-02-16 12:35:00 [facility] [place] Diastolic (mm Hg) 2015-02-16 12:35:00 [facility] [place] Respitory Rate 2015-02-16 12:35:00 [facility] Temperature Oral (F) 2015-02-16 09:00:00 97.5 F [facility] Systolic (mm Hg) 2015-02-16 09:00:00 [facility] Diastolic (mm Hg) 2015-02-16 09:00:00 [facility] [place] Heart Rate 2015-02-16 09:00:00 [facility] Height 2015-02-16 00:50:00 185.42 cm [facility] [place] BMI Calculated 2015-02-16 00:50:00 [facility] Weight 2015-02-16 00:50:00 [facility] Weight 2015-02-15 17:48:00 [facility] BMI Calculated 2015-02-15 17:48:00 [facility] Height 2015-02-15 17:48:00 185.42 cm [facility] [place] Temperature Oral (F) 2015-02-09 21:12:00 98.2 F [facility] [place] Heart Rate 2015-02-09 21:12:00 [facility] Respitory Rate 2015-02-09 21:12:00 [facility] Systolic (mm Hg) 2015-02-09 21:12:00 [facility] Diastolic (mm Hg) 2015-02-09 21:12:00 [facility] [place] BMI Calculated 2015-02-09 20:27:00 [facility] Weight 2015-02-09 20:27:00 [facility] [place] Height 2015-02-09 20:27:00 185.42 cm [facility] [place] Systolic (mm Hg) 2015-02-09 20:27:00 [facility] Diastolic (mm Hg) 2015-02-09 20:27:00 [facility] Heart Rate 2015-02-09 20:27:00 [facility] [place] Respitory Rate 2015-02-09 20:27:00 [facility] [place] Systolic (mm Hg) 2015-01-23 23:00:00 [facility] [place] Diastolic (mm Hg) 2015-01-23 23:00:00 [facility] [place] Systolic (mm Hg) 2015-01-23 22:00:00 [facility] Diastolic (mm Hg) 2015-01-23 22:00:00 [facility] [place] Systolic (mm Hg) 2015-01-23 21:00:00 [facility] [place] Diastolic (mm Hg) 2015-01-23 21:00:00 [facility] [place] Respitory Rate 2015-01-23 19:15:00 [facility] [place] Weight 2015-01-23 18:26:00 [facility] [place] Height 2015-01-23 18:26:00 185.42 cm [facility] [place] BMI Calculated 2015-01-23 18:26:00 [facility] [place] Respitory Rate 2015-01-23 18:26:00 [facility] [place] Heart Rate 2015-01-23 18:26:00 [facility] [place] Temperature Oral (F) 2015-01-23 18:26:00 98.5 F [facility] Procedures Procedure Date / Time Performing Clinician Source Performed CT UPPER EXTREMITY 2020-01-02 14:15:[address] [facility] - WITHOUT IV CONTRAST LEFT [facility] XR SHOULDER LEFT COMPLETE 2020-01-02 09:56:[address] [facility] - MIN 2 VIEWS [facility] PT/APTT 2020-01-02 08:49:[address] [facility] - [facility] SARS-COV2/RT-PCR ([facility] & 2020-01-02 08:22:[address] [facility]F [facility] CBC W/PLT COUNT & AUTO 2020-01-02 08:18:[address] [facility] - DIFFERENTIAL [facility] COMPREHENSIVE METABOLIC 2020-01-02 08:18:00 [facility]itas [facility] - PANEL [facility] XR SHOULDER LEFT COMPLETE 2020-01-02 07:18:[address] [facility] - MIN 2 [facility] PROCEDURAL SEDATION 2020-01-02 07:10:11 Rio [facility] Amputation of [facility] toe<sup>1</sup> Blood transfusion [facility] Plan of Care Planned Activity Planned Date Details Comments Source Future Scheduled 2020-01-[address] [facility] - Test 00:00:00 (#1) [code = Medical Center INFLUENZA VACCINE (#1)] Future Scheduled 2017-05-[address] [facility] - Test 00:00:00 WELLNESS (YEAR 2 or Medical Center FIRST YEAR if no IPPE) [code = MEDICARE ANNUAL WELLNESS (YEAR 2 or FIRST YEAR if no IPPE)] Future Scheduled 1999-12-[address] [facility] Test 00:00:00 (procedure) [code = [facility] 10509853] Future Scheduled [address] [facility] - Test 00:00:00 malignant neoplasm Medical C enter of colon (procedure) [code = 278569595] Encounters Start End Encounter Admission Attending Care Care Encounter Source Date/Time Date/Time Type Type Clinicians Facility Department ID 2016-04-05 2016-04-05 Outpatient SAVI Pierce [facility] [id number] 08:00:00 23:59:00 Abbmarek 08 Jeff 2016-03-13 2016-03-14 Outpatient Emily YUMI [facility] [id number] 18:41:00 10:51:00 Blanche Okeefe 2016-01-31 2016-02-18 Outpatient Kari YUMI [facility] [id number] 13:47:00 15:15:00 Abbmarek 06 Jeff 2015-02-15 2015-02-16 Outpatient Brian [facility] [id number] 12:38:00 16:20:00 Juanwilly Mckeon 2015-02-09 2015-02-09 Outpatient Az Warner [facility] [id number] 15:20:00 16:13:00 Sundar 04 2015-01-23 2015-01-23 Outpatient Lisandra [facility] [id number] 13:23:00 18:13:00 Joanadodie Cope 03 2013-10-31 2013-11-29 Outpatient Rosibel [facility] [id number] 08:00:00 23:59:00 Nabeel Hermes 00 Results Test Description Test Time Test Comments Results Result [facility] e Comments CT, EXTREMITY, 2020-01-02 FINAL REPORT UPPER, WITHOUT 15:45:00 PATIENT ID: CONTRAST, LEFT [id number] CT of the left shoulder without contrast [...] Bustillo Verified Date/Time: 01/02/2020 15:45:14 Reading Location: [facility] Radiology Reading Room upper 2020-01-02 Interface, External [...] fracture fragments, from unclear donor sites. Signed: Iwona, Delisa MDReport Verified Date/Time: 01/02/2020 15:45:14 Reading Location: [facility] Radiology Reading Room -CoV2/RT-PCR (Asymptomatic ONLY) 2020-01-02 13:11:00 Test Item Value Reference Range Interpretation Comme nts SARS-COV2/RT-PCR (test code = Negative Not Detected, 48921-6) Negative, See external report for linked test SARS-COV-[address] [facility] (test code = 07209-8) DELLA (test code = DELLA) Negative result [...] of the Act. Fact Sheet for Healthcare Providers:https://www.iMove. com/sites/default/files/produ ct/documents/Fact_Sheet_HC_Pr azbcgge_Fake_EOPQ-FgG-6.pdf Fact Sheet for Healthcare Patients:https://www.iMove.c om/sites/default/files/produc t/documents/Fact_Sheet_Desire diasfq_Hhlk_PDVA-HtD-3.pdf Performing Laboratory:[facility] [place] [address] [facility] & REF LABS)2020-01-02 13:11:00 Test Item Value Reference Range Interpretation Comments SARS-COV2/RT-PCR (test Negative Not Detected, Negative, code = 7581799) See external report for linked test SARS-COV-[address] [facility] (test code = 1309215) Negative result for this test determines that [...] a nasopharyngeal swab specimen collected from individuals susp ected of COVID-19 by their healthcare provider.This test [...] 564(g) of the Act.Fact Sheet for Healthcare Providers:https://www.iMove.Embrane/sites/default/files/product/documents/Fact_Sheladonna n_CJ_Vacelugky_Fzcf_DUHQ-IwR-3.pdfFact Sheet for Healthcare Patients:https://www.Fitcline/sites/default/files/product/ documents/Wfyr_Tmkqj_Fnkwgwnr_Lohd_XTBO-SlQ-7.pdfPerforming Laboratory:[facility], [place] [address]GNW, SHOULDER, COMPLETE (MIN 2 VIEWS), [id number] 10:34:00Reason for exam:->ARM INJURYShould this be performed at the bedside?->YesFINAL REPORT RAD, SHOULDER, COMPLETE (MIN 2 VIEWS), LEFT INDICATION: ARM INJURY COMPARISON: 2 hours prior TECHNIQUE: Single frontal view of the left shoulder. IMPRESSION: Redemonstration of chronic changes in the anteriorly displaced humeral head. Glenoid rim appears preserved.Acromioclavicular joint remains intact. Signed: JR Moreira Robert MDReport Verified Date/Time: 01/02/2020 10:34:05 Reading Location: [facility] Radiology Reading Room XR shoulder complete 2 views min [id number] 10:34:00Interface, External Ris In - 01/02/2020 10:36 AM CDTFINAL REPORT RAD, SHOULDER, COMPLETE (MIN 2 VIEWS), LEFT INDICATION: ARM INJURY COMPARISON: 2 hours prior TECHNIQUE: Single frontal view of the left shoulder. IMPRESSION: Redemonstration of chronic changes in the anteriorly displaced humeral head. Glenoid rim appears preserved. Acromioclavicular joint remains intact. Signed: Teressa hernandez JR, Robert MDReport Verified Date/Time: 01/02/2020 10:34:05 Reading Location: [facility] Radiology Reading Room [place] [facility] [id number] 09:03:00 Test Item Value Reference Interpretation Comments Range Protime (test code = 13.4 See_Comment [Autom ated 5902-2) message] The system which generated this result transmitted reference range : 11.9 - 14.2 seconds. The reference range was not used to interpret this result as normal/abnormal . INR (test code = 1.1 See_Comment [Automated 7591-6) message] The system which generated this result transmitted reference range : <=5.9. The reference range was not used to interpret this result as normal/abnormal . PTT (test code = 30.8 See_Comment [Automated 57722-7) message] The system which generated this result transmitted reference range : 22.5 - 36.0 seconds. The reference range was not used to interpret this result as normal/abnormal . DELLA (test code = Effective 10/23/2018: DELLA) PT Reference Range ChangeNew: 11.9-14.2 Previous: 11.7-14.7 RECOMMENDED COUMADIN/WARFARIN INR THERAPY RANGESSTANDARD DOSE: 2.0-3.0 Includes: PROPHYLAXIS for venous thrombosis, systemic embolization; TREATMENT for venous thrombosis and/or pulmonary embolus.HIGH RISK: Target INR is 2.5-3.5 for patients wiht mechanical heart valves. Lab Interpretation Normal (test code = 81016-2) [id number] 09:03:00 Test Item Value Reference Range Interpretation [...] Range Interpretation Comments Protein, Total (test 8.0 See_Comment Specime n slightly code = 2885-2) hemolyzed [Automated message] The system which generated this result transmit roseann reference range : 6.0 - 8.3 gm/dL . The reference range was not u sed to interpret th is result as normal/abnormal . Albumin (test code = 4.2 g/dL 3.5-5 Specime n slightly 16972-2) hemolyzed Alkaline Phosphatase 78 U/L 40-150 (test code = 6768-6) Total Bilirubin (test 0.4 mg/dL 0.2-1.2 Specim en slightly code = 1974-2) hemolyzed Sodium (test code = 134 meq/L 136-145 L 2951-2) Potassium (test code 3.5 meq/L 3.5-5.1 Specime n slightly = 2823-3) hemolyzed Chloride (test code = 100 meq/L 98-107 2075-0) CO2 (test code = 21 meq/L 22-29 L 8-9) BUN (test code = 10 mg/dL 7-21 3094-0) Creatinine (test code 0.83 mg/dL 0.57-1.25 Specim en slightly = 2160-0) hemolyzed Glucose (test code = 74 mg/dL 70-105 2345-7) Calcium (test code = 9.3 mg/dL 8.4-10.2 42123-9) AST (test code = 25 U/L 5-34 Specimen sl ightly 1920-8) hemolyzed ALT (test code = 16 U/L 6-55 Specimen sl ightly 1742-6) hemolyzed EGFR (test code = 96 mL/min/1.73 [place] [address]-0) NOT ACCURATE CREATININE CLEARANCE IN PREDICTING GLOMERULAR FILTRATION RATE . ESTIMATED GFR I S NOT APPLICABLE FOR DIALYSIS PATIEN TS. DELLA (test code = DELLA) Leadership Program Intern ID - EDASI Lab Interpretation Abnormal (test code = 06523-0) [facility] Center[facility]PRE[facility] [id number] 08:46:00 Test Item Value Reference Range Interpretation [...] hemolyzed EGFR (BEAKER) (test 96 mL/min/1.73 ESTIMA ROSEANN GFR IS code = 1092) sq m NOT ACCURATE CREATININE CLEARANCE IN PREDICTING GLOMERULAR FILTRATION RATE . ESTIMATED GFR I S NOT APPLICABLE FOR DIALYSIS PATIEN TS. Leadership Program Intern ID - EDASICBC with platelet count + automated [id number] 08:30:00 Test Item Value Reference Range Interpretation Comments WBC (test code = 6690-2) 7.5 See_Comment [A utomated message] The system [employer] generated this result transmitted ref erence range: 3.5 - 10 .5 K/L. The refe rence range was not u sed to interpret this result as normal/abnor mal. RBC (test code = 789-8) 4.74 See_Comment [Au tomated message] The system [employer] generated this result transmitted ref erence range: 4.63 - 6 .08 M/L. The refe rence range was not u sed to interpret this result as normal/abnor mal. MCHC (test code = 786-4) 34.0 See_Comment [A utomated message] The system [employer] generated this result transmitted ref erence range: 32.3 - 3 6.5 GM/DL. The refe rence range was not u sed to interpret this result as normal/abnor mal. Hematocrit (test code = 42.6 % 40.1-51 4544-3) MCV (test code = 787-2) 89.9 fL 79-92.2 MCH (test code = 785-6) 30.6 pg 25.7-32.2 RDW (test code = 788-0) 16.3 % 11.6-14.4 H Platelets (test code = 218 See_Comment [Aut omated message] 777-3) The system [employer] generated this result transmitted ref erence range: 150 - 45 0 K/CU MM. The referen ce range was not u sed to interpret this result as normal/abnor mal. MPV (test code = 8.8 fL 9.4-12.4 L 43100-4) nRBC (test code = 413) 0 See_Comment [Aut omated message] The system [employer] generated this result transmitted ref erence range: 0 - 0 /1 00 WBC. The refere nce range was not u sed to interpret this result as normal/abnor mal. % Neutros (test code = 73 % 429) % Lymphs (test code = 18 % 430) % Monos (test code = 6 % 431) % Eos (test code = 432) 3 % % Baso (test code = 437) 1 % # Neutros (test code = 5.49 See_Comment H [Aut omated message] 670) The system [employer] generated this result transmitted ref erence range: 1.78 - 5 .38 K/L. The refe rence range was not u sed to interpret this result as normal/abnor mal. # Lymphs (test code = 1.32 See_Comment [Auto mated message] 414) The system [employer] generated this result transmitted ref erence range: 1.32 - 3 .57 K/L. The refe rence range was not u sed to interpret this result as normal/abnor mal. # Monos (test code = 0.41 See_Comment [Autom ated message] 415) The system [employer] generated this result transmitted ref erence range: 0.30 - 0 .82 K/L. The refe rence range was not u sed to interpret this result as normal/abnor mal. # Eos (test code = 416) 0.19 See_Comment [Au tomated message] The system [employer] generated this result transmitted ref erence range: 0.04 - 0 .54 K/L. The refe rence range was not u sed to interpret this result as normal/abnor mal. # Baso (test code = 417) 0.06 See_Comment [A utomated message] The system [employer] generated this result transmitted ref erence range: 0.01 - 0 .08 K/L. The refe rence range was not u sed to interpret this result as normal/abnor mal. Immature 1 % 0-1 Granulocytes-Relative (test code = 2801) Lab Interpretation (test Abnormal code = 93408-8) [facility] W/PLT COUNT & AUTO [id number] 08:30:00 Test Item Value Reference Range Interpretation [...] 2801) RAD, SHOULDER, COMPLETE (MIN 2 VIEWS), [id number] 07:45:00Reason for exam:- >ARM INJURYFINAL REPORT RAD, [...] MDReport Verified Date/Time: 01/02/2020 07:45:57 Reading Location: [facility] Radiology Reading Room Electronic ally signed [...] cannula Sedation: Propofol and ketamine Intra-procedure monitoring: nuclear monitoring technician, blood pressure monitoring, continuous capnometry and continuous pulse oximetry Intra-procedure events: none Sedation end time: 01/02/2020 10:05 AMPost Sedation Evaluation: Respiration: airway patentThe following have been reviewed and found to be within acceptable parameters: RR, HR, BP and pulse ox Pain Scale: 5/10 Nausea/Vomiting: noHydration status: wnlTemperature within expected parameters :Temperature within defined limits @[facility]ENTEREDMULTIPLEVITALS@ [facility] CenterBLOOD [id number] 02:00:00 Test Item Value Reference Range Interpretation Comments CULTURE (BEAKER) (test No growth in 5 days code = 1095) BLOOD [id number] 20:01:00 Test Item Value Reference Range Interpretation Comments CULTURE (BEAKER) (test No growth in 5 days code = 1095) EEG AWAKE AND [id number] 14:49:00Reason for exam:->seizuresDate(s) of EE10/14/18DATE OF REPORT: 10/14/18ACC: [id number] Number: [id number] time: 13:36Stop time: 13:57ICD-10: R56.9 Unspecified ConvulsionsCPT Code: 11572 EEG: awake and drowsy <40 min HISTORY: [...] MDNeurophysiology Fellow Anjali Floyd MDNeurophysiology/Epilepsy Attending [facility] METABOLIC [id number] 07:41:00 Test Item Value Reference Range Interpretation [...] 697) EGFR (BEAKER) (test 97 mL/min/1.73 ESTIMA ROSEANN GFR IS code = 1092) sq m NOT ACCURATE CREATININE CLEARANCE IN PREDICTING GLOMERULAR FILTRATION RATE . ESTIMATED GFR I S NOT APPLICABLE FOR DIALYSIS PATIEN TS. CBC W/PLT COUNT & AUTO [id number] 05:30:00 Test Item Value Reference Range Interpretation [...] (test code = 2801) VITAMIN B12 AND [id number] 19:46:00 Test Item Value Reference Range Interpretation Comments VITAMIN B12 (BEAKER) (test code = 683 pg/mL 213-816 774) FOLATE (BEAKER) (test code = 362) > ng/mL >=7.0 [id number] 17:59:00 Test Item Value Reference Range Interpretation Comments PHOSPHORUS (BEAKER) (test code = 4.0 mg/dL 2.3-4.7 604) [id number] 17:59:00 Test Item Value Reference Range Interpretation Comments MAGNESIUM (BEAKER) (test code = 2.5 mg/dL 1.6-2.6 627) CT, BRAIN, WITHOUT [id number] 16:58:00FINAL REPORT CT head without contrast. Reason [...] MDReport Verified Date/Time: 10/12/2018 16:58:56 Reading Location: [facility] C013V Neuro Reading Room ALYSIS W/ [id number] 16:25:00 Test Item Value Reference Range Interpretation [...] 516) SOURCE(BEAKER) (test code = Urine, Voided 8292) BLOOD [id number] 10:00:00 Test Item Value Reference Range Interpretation Comments CULTURE (BEAKER) (test No growth in 5 days code = 1095) STOOL CULTURE + SHIGA [id number] 09:59:00 Test Item Value Reference Range Interpretation Comments CULTURE (BEAKER) No Salmonella, Shigella (test code = 1095) or Campylobacter isolated STOOL PATH [id number] 09:01:00 Test Item Value Reference Range Interpretation Comments PATHOGEN EXAM CHARGED (BEAKER) (test Done code = 2381) BASIC METABOLIC [id number] 06:59:00 Test Item Value Reference Range Interpretation [...] 697) EGFR (BEAKER) (test 35 mL/min/1.73 ESTIMA ROSEANN GFR IS code = 1092) sq m NOT ACCURATE CREATININE CLEARANCE IN PREDICTING GLOMERULAR FILTRATION RATE . ESTIMATED GFR I S NOT APPLICABLE FOR DIALYSIS PATIEN TS. SHIGA TOXIN [id number] 15:48:00 Test Item Value Reference Range Interpretation Comments SHIGA TOXIN 1 (BEAKER) (test Not detected Not detected code = 2177) SHIGA TOXIN 2 (BEAKER) (test Not detected Not detected code = 2179) CLOSTRIDIUM DIFFICILE TOXIN [id number] 15:13:00 Test Item Value Reference Range Interpretation [...] a positive result is not recommended.BLOOD GAS, [id number] 11:03:00 Test Item Value Reference Range Interpretation [...] code = 1819) 21.0 % BASIC METABOLIC [id number] 05:14:00 Test Item Value Reference Range Interpretation [...] 697) EGFR (BEAKER) (test 25 mL/min/1.73 ESTIMA ROSEANN GFR IS code = 1092) sq m NOT ACCURATE CREATININE CLEARANCE IN PREDICTING GLOMERULAR FILTRATION RATE . ESTIMATED GFR I S NOT APPLICABLE FOR DIALYSIS PATIEN TS. PTH, [id number] 05:03:00 Test Item Value Reference Range Interpretation Comments PARATHYROID HORMONE INTACT 41.8 pg/mL 8.5-72.5 (BEAKER) (test code = 577) BASIC METABOLIC [id number] 07:10:00 Test Item Value Reference Range Interpretation [...] 697) EGFR (BEAKER) (test 16 mL/min/1.73 ESTIMA ROSEANN GFR IS code = 1092) sq m NOT ACCURATE CREATININE CLEARANCE IN PREDICTING GLOMERULAR FILTRATION RATE . ESTIMATED GFR I S NOT APPLICABLE FOR DIALYSIS PATIEN TS. SODIUM, RANDOM [id number] 06:58:00 Test Item Value Reference Range Interpretation Comments SODIUM URINE (BEAKER) (test code = 65 meq/L 243) Reference Range: No NormalsPROTHROMBIN [id number] 06:47:00 Test Item Value Reference Range Interpretation Comments PROTIME (BEAKER) (test code = 14.5 seconds 11.7-14.7 759) INR (BEAKER) (test code = 370) 1.1 <=5.9 RECOMMENDED COUMADIN/WARFARIN INR THERAPY RANGESSTANDARD DOSE: 2.0 - 3.0 Includes: PROPHYLAXIS forvenous thrombosis, systemic embolization; TREATMENT for venous thrombosis and/or pulmonary embolus.HIGH RISK: Target INR is 2.5-3.5 for patients with mechanical heart valves.RAPID DRUG SCREEN, [id number] 15:43:00 Test Item Value Reference Range Interpretation [...] situations. Chain of custody not maintained. Some qvxa-lwq-cllrwlg medications, as well as adulterants, may cause inaccurate results. Clinical correlation should be applied. A more comprehensive drug screen or confirmation of a detected drug may be performed upon request. URINE [id number] 14:33:00 Test Item Value Reference Range Interpretation Comments CULTURE (BEAKER) (test code = 1095) No growth BASIC METABOLIC [id number] 08:09:00 Test Item Value Reference Range Interpretation [...] 697) EGFR (BEAKER) (test 13 mL/min/1.73 ESTIMA ROSEANN GFR IS code = 1092) sq m NOT ACCURATE CREATININE CLEARANCE IN PREDICTING GLOMERULAR FILTRATION RATE . ESTIMATED GFR I S NOT APPLICABLE FOR DIALYSIS PATIEN TS. CBC W/PLT COUNT & AUTO [id number] 06:38:00 Test Item Value Reference Range Interpretation [...] (BEAKER) (test code = 2801) U/S, RENAL, [id number] 22:34:00Reason for exam:->acute kidney injury FINAL REPORT [...] bilaterally with no evidence of hydronephrosis. Signed: Liana Jackeport Verified Date/Time: 04/17/2017 22:34:25 Reading Location:[address] Reading Room MR, BRAIN, WITHOUT [id number] 19:18:00Reason for exam:->Stroke evaluationFINAL REPORT MRI Brain [...] Charlene ified Date/Time: 04/17/2017 19:18:34 Reading Location: [facility] Radiology Reading Room EEG MONITORING WITH VIDEO RECORDING EACH 24 [id number] 18:01:00DATE OF TEST: 04/17/2017 DATE OF REPORT 04/17/2017 ACC: [id number] EE Start time: 16:42 Stop time: 18:44 ICD-10: R56.9 CPT Code: 76130 HISTORY: 51 y/o woman with history of [...] this report and agree with its interpretation. Gina Davis MD Neurophysiology Attending ALYSIS W/ [id number] 11:57:00 Test Item Value Reference Range Interpretation [...] 1583) SOURCE(BEAKER) (test code = Urine, Cooper 1712) EOSINOPHIL SMEAR, [id number] 11:56:00 Test Item Value Reference Range Interpretation Comments EOSINOPHIL SMEAR, URINE (BEAKER) No EOS seen No EOS seen (test code = 1851) CREATININE, RANDOM [id number] 11:24:00 Test Item Value Reference Range Interpretation Comments CREATININE URINE (BEAKER) (test 69.7 mg/dL code = 375) Reference Range: No NormalsSODIUM, RANDOM [id number] 11:24:00 Test Item Value Reference Range Interpretation Comments SODIUM URINE (BEAKER) (test code = 58 meq/L 243) Reference Range: No NormalsUREA NITROGEN, RANDOM [id number] 11:24:00 Test Item Value Reference Range Interpretation Comments UREA NITROGEN URINE (BEAKER) (test 172 mg/dL code = 538) Reference Range: No NormalsCREATINE KINASE (CK)2017-04-17 11:06:00 Test Item Value Reference Range Interpretation Comments CREATINE KINASE TOTAL (BEAKER) (test 136 U/L 29-200 code = 380) BASIC METABOLIC [id number] 04:53:00 Test Item Value Reference Range Interpretation [...] 697) EGFR (BEAKER) (test 17 mL/min/1.73 ESTIMA ROSEANN GFR IS code = 1092) sq m NOT ACCURATE CREATININE CLEARANCE IN PREDICTING GLOMERULAR FILTRATION RATE . ESTIMATED GFR I S NOT APPLICABLE FOR DIALYSIS PATIEN TS. CBC W/PLT COUNT & AUTO FFNBPEYVRSJW6324-09-86 04:19:00 Test Item Value Reference Range Interpretation [...] EEG MONITORING WITH VIDEO RECORDING EACH 24 [id number] 17:57:00DATE OF TEST: 04/16/2017DATE OF REPORT 04/16/2017 ACC: [id number]: 17-1987Start time: 08:42 Stop time: 16:42ICD-10: R56.9CPT Code: 60156SHWVVKR: 51 y/o woman with history of epilepsy [...] I agree with the details of this report.Vicky Hassan MDEpilepsy Attending EEG AWAKE/ASLEEP AND [id number] 13:27:00Reason for exam:->status epilepticusDATE OF TEST: 04/16/2017DATE OF REPORT 04/16/2017 ACC: [id number] EEStart time: 08:21 Stop time: 08:42ICD-10: R56.9CPT Code: 19498VTHJNQE: 51 y/o woman with history of epilepsy [...] I agree with the details of this report.Vicky Hassan MDEpilepsy Attending HEPATIC FUNCTION [id number] 12:59:00 Test Item Value Reference Range Interpretation [...] 347) hemolyzed RAD, CHEST, 1 VIEW, NON [id number] 09:16:00Reason for exam:- >intubatedShould this be performed at the bedside?->YesFINAL REPORT Chest two views AP 04/16/2017 9:15 AM CLINICAL INDICATION: intubated COMPARISON: None available IMPRESSION: Support hardware is in satisfactory radiographic position. Cardiomediastinal contours are within normal limits. There is central pulmonary vasculature congestion without remarkable peripheral edema. There are streaky foci of atelectasis bilaterally. Superimposed pneumonia should be excluded clinically. Signed: Chantale Doe Verified Date/Time: 04/16/2017 09:16:32 Reading Location: [facility] Radiology Reading Room VITAMIN [id number] 07:31:00 Test Item Value Reference Range Interpretation Comments VITAMIN B12 (BEAKER) (test code = 450 pg/mL [id number] 774) FOLATE, [id number] 07:31:00 Test Item Value Reference Range Interpretation Comments FOLATE (BEAKER) (test code = 362) 8.0 ng/mL >=7.0 URINALYSIS W/ [id number] 07:09:00 Test Item Value Reference Range Interpretation [...] = 514) SOURCE(BEAKER) (test code = 2795) [id number] 05:59:00 Test Item Value Reference Range Interpretation Comments MAGNESIUM (BEAKER) 3.0 mg/dL 1.6-2.6 H Specimen moderately (test code = 627) hemolyzed [id number] 05:59:00 Test Item Value Reference Range Interpretation Comments PHOSPHORUS (BEAKER) 3.0 mg/dL 2.3-4.7 Specimen moderately (test code = 604) hemolyzed BASIC METABOLIC [id number] 05:59:00 Test Item Value Reference Range Interpretation [...] 697) EGFR (BEAKER) (test 50 mL/min/1.73 ESTIMA ROSEANN GFR IS code = 1092) sq m NOT ACCURATE CREATININE CLEARANCE IN PREDICTING GLOMERULAR FILTRATION RATE . ESTIMATED GFR I S NOT APPLICABLE FOR DIALYSIS PATIEN TS. PROTHROMBIN TIME/[id number] 05:33:00 Test Item Value Reference Range Interpretation Comments PROTIME (BEAKER) (test code = 15.7 seconds 11.7-14.7 H 759) INR (BEAKER) (test code = 370) 1.3 <=5.9 RECOMMENDED COUMADIN/WARFARIN INR THERAPY RANGESSTANDARD DOSE: 2.0 - 3.0 Includes: PROPHYLAXIS forvenous thrombosis, systemic embolization; TREATMENT for venous thrombosis and/or pulmonary embolus.HIGH RISK: Target INR is 2.5-3.5 for patients with mechanical heart valves.BLOOD GAS, [id number] 05:31:00 Test Item Value Reference Range Interpretation [...] 60.0 % CBC W/PLT COUNT & AUTO JZRWQQJORFVG8853-43-30 05:08:00 Test Item Value Reference Range Interpretation [...] (BEAKER) (test code = 2801) BLOOD BANK [id number] 17:22:00Product available (04/04/16 11:22 AM) [facility] UDYPSVJ3677-59-68 17:20:00Negative (04/04/16 11:20 AM) [facility] [id number] 07:08:001[facility] NNDZU3754-37-07 07:08:003[facility] ZFTXN4170-69-15 07:08:00 Negative (03/14/16 2:08 AM)[facility] QKKDZ4913-48-63 07:08:005.0 [facility] WEWHK8156-62-18 07:08:001.009[facility] KQOJI2175-36-37 07:08:00Clear (03/14/16 2:08 AM)[facility] STOOL 2016-03-14 07:08:00Yellow *NA*(03/14/16 2:08 AM)[facility] STOOL 2016-03-14 07:08:00Negative (03/14/16 2:08 AM)[facility] STOOL 2016-03-14 07:08:00Negative (03/14/16 2:08 AM)[facility] STOOL 2016-03-14 07:08:00Negative *NA*(03/14/16 2:08 AM)[facility]annCHEM PANEL 2016-03-14 05:40:000.8[facility]BL[facility] BANK [id number] 02:07:00 Negative (03/13/16 9:07 PM)[facility]CHE[facility] EETPF4176-86-83 02:07:0043 [facility]annCHE[facility] FULAG8794-85-86 02:07:0021[facility]annCHE[facility] PANEL 2016-03-14 02:07:001.79[facility]annCHE[facility] RTWLQ2218-89-83 02:07:0095[facility]CHE[facility] HHPJK1524-27-86 02:07:000.3[facility]annCHE[facility] QYOIT7861-67-95 02:07:0039[facility]CHE[facility] LBBGQ4748-76-76 02:07:0059[facility]CHE[facility] ZNKCI8897-81-44 02:07:95742Hxxbzqze HermannCHEM QSROP7151-95-34 02:07:007.8 [facility]CHE[facility] ZIJZS4473-55-47 02:07:002.5[facility]annCHEM PANEL 2016-03-14 02:07:96443Gkikaegb HermannCHEM LZDKI7462-77-26 02:07:22336Pciagbjd HermannCHEM CRNXK8517-33-05 02:07:0021[facility]annCHE[facility] JIRRJ3647-17-99 02:07:0010.1[facility]annCHE[facility] LQKQS5724-88-51 02:07:003.3[facility]annCHE[facility] EDYCV7994-87-00 02:07:000.5[facility]CHE[facility] XTQBV2292-51-89 02:07:005.3 [facility]annCHE[facility] CSNCN4365-24-48 02:07:0012[facility]annCHEM PANEL 2016-03-14 02:07:0015.3[facility] OvnwwrgPOOAXUVULT8039-69-15 02:07:007.4[facility] WkmswomOPWEKBKPNS3413-34-67 02:07:007.3[facility] GvevgqpGIXXDQJKWK4162-97-78 02:07:0088.5[facility] VyfglofJDJGAEOVOG4048-92-43 02:07:003.00[facility] [place] JQJQYKAEVD4722-76-78 02:07:0026.5[facility] BuvjrifAYYLQMFZPW8479-46-22 02:07:00 8.8[facility] MueytcfGDQSWEPPIT1539-41-74 02:07:0033.1[facility]annHEMATOLOGY 2016-03-14 02:07:00 Test Item Value Reference Range Interpretation Comments MCH (test code = MCH) 29.3 pg 27.0-31.0 [facility] CpkosvyHNVMVDFGEN8323-86-61 02:07:39152Dhbeydwh HermannHEMATOLOGY 2016-03-14 02:07:0015.5[facility] ZlxlghoEZDRTTWHJI4564-77-19 02:07:000.1[facility] ZqlapgsKHERPHYEBT0247-79-85 02:07:0014.3[facility] GzafzwfYXOFLSXQBG5903-59-79 02:07:001.9[facility] KkkscmtRBSVMYRTRN2406-23-81 02:07:0077.1[facility] [place] OEPHMSMBHH6008-92-87 02:07:005.3[facility] PtyiagqBCZYNVRUVW9556-62-93 02:07:001.4 [facility] EfzkrovGCKUKMIEPI3474-53-11 02:07:005.6[facility]annHEMATOLOGY 2016-03-14 02:07:001.0[facility] LraghoiFTVPWUWYUQ4428-32-74 02:07:000.4[facility] VluolayERDRCTTVTP2044-88-24 02:07:000.1[facility] HermannANEMIA WJGFE0214-56-24 09:04:07649Mlxtjvtk HermannANEMIA RLXWR2093-54-43 09:04:22231Oktbckkr [place] ANEMIA LOMPR6352-57-80 09:04:0022[facility]annANEMIA XHYRJ9278-29-70 09:04:00 11[facility]annCHEM BTFKI2496-25-93 15:50:0057[facility]annCHEM PANEL 2016-02-15 15:50:0014.7[facility]annCHEM YNWWX4323-25-16 15:50:008.7[facility]annCHEM KLGFC2501-79-92 15:50:0024[facility]annCHEM SEILR5365-45-26 15:50:0099[facility]annCHEM VVWPT5728-92-48 15:50:003.7[facility]annCHEM GRPMM9413-11-31 15:50:0016[facility]annCHEM XWFNS1254-19-69 15:50:51431 [facility]annCHEM NJOJI0674-85-52 15:50:26301Ngpdwyzm HermannCHEM PANEL 2016-02-15 15:50:001.42[facility]annCHEM FNOPI2916-50-68 09:45:0051[facility]annCHEM DUPAK4529-04-61 09:45:000.8[facility]annCHEM JHCMJ2173-87-15 09:45:0025[facility]annCHE[facility] YJFAJ3918-54-39 09:45:0015[facility]annCHEM WOQEV2501-94-09 09:45:0062[facility]annCHE[facility] PKZMW6951-06-36 09:45:004.8 [facility]annCHE[facility] VJMQP0509-95-81 09:45:000.5[facility]annCHEM PANEL 2016-02-14 09:45:009.0[facility]annCHEM HZZSD4988-70-67 09:45:24186Yfpgibwq HermannCHEM DEDSR8052-47-01 09:45:0024[facility]annCHE[facility] RFAWT1480-44-07 09:45:54348Djuocngs HermannCHEM FHBIX5779-71-63 09:45:0017[facility]annCHEM QEPGC2034-17-82 09:45:004.1[facility]annCHE[facility] ZCTPJ5799-02-45 09:45:0014.1 [facility]annCHE[facility] BWQOM3053-30-52 09:45:002.3[facility]annCHEM PANEL 2016-02-14 09:45:007.1[facility]annCHEM VTAZA7890-72-80 09:45:001.55[facility]annCHEM IHKZD6133-29-08 09:45:45790Uvcgbltk HermannCHEM OZFTE6622-01-09 09:45:0011[facility] IolvbcdPNESJVLCYG7306-21-64 09:45:007.7[facility] SKWCJSCODD3985-97-10 09:45:0025.4[facility] ElgoqbmITHTSZPCNY6460-18-37 09:45:00 Test Item Value Reference Range Interpretation Comments MCH (test code = MCH) 32.7 pg 27.0-31.0 [facility] RwzwxxoLPQPTPPNFE7018-46-63 09:45:0096.6[facility]annHEMATOLOGY 2016-02-14 09:45:48470Masmafmy WzhmcyaTPDJPNWSFU8903-43-82 09:45:0014.7[facility] EpsvclvODWTLBDVZS0668-30-04 09:45:0033.8[facility] WkkduxhONNMFJTFHK4651-64-16 09:45:008.4[facility] KuujcziSLKHSPLJST4646-02-27 09:45:008.6[facility] [place] PGBVDKJJNR3053-07-83 09:45:002.63[facility] OeoyhrzKQVHFRFGFD0525-04-38 09:45:00 1.5[facility] JsuocioPJWMSVKKCC1298-51-87 09:45:000.2[facility]annHEMATOLOGY 2016-02-14 09:45:000.8[facility] EajarfcQNNHPTRNHU5601-68-29 09:45:000.1[facility] LvhqjxxQLRTSGBUYT9271-74-26 09:45:009.9[facility] PlqxyzcRCNZFMSKQM8894-09-23 09:45:0017.2[facility] QflcoypEYHHJPLRGH7113-28-32 09:45:0069.8[facility] INBTRBEZLI0654-41-95 09:45:002.2[facility] GijrwypMLIOWHAGXQ3082-79-18 09:45:005.9 [facility] OfvutowUWZVSGUBIS5354-21-59 09:45:000.9[facility] HermannTOXICOLOGY 2016-02-14 09:45:0014.8[facility]annCHEM YOQLM2390-29-40 09:54:006.3[facility]annCHEM RVQPH8630-30-83 09:54:000.7[facility]annCHEM QKODB9869-12-72 09:54:0012[facility]annCHEM PFHIO1896-66-10 09:54:003.8[facility]annCHEM FZRQH6804-23-58 09:54:0012[facility]annCHEM VLLLN0374-67-75 09:54:0061 [facility]annCHEM ZHSDN1061-55-01 09:54:002.5[facility]annCHEM PANEL 2016-02-13 09:54:0026[facility]annCHEM JBMEF6079-35-77 09:54:000.4[facility]annCHEM VYINZ4440-58-67 09:54:0013.5[facility]annCHEM KHDTR7212-32-93 09:54:0057[facility] HermannCHEM HWYOH6530-01-82 09:54:0027[facility]annCHEM FCZHH6851-58-72 09:54:008.7[facility]annCHEM DOFXB8398-89-70 09:54:70981 [facility]annCHEM KDVZQ9956-22-82 09:54:004.5[facility]annCHEM PANEL 2016-02-13 09:54:001.42[facility]annCHEM FFFWQ9993-69-25 09:54:78222Fvodjthw HermannCHEM GMGQW8644-76-60 09:54:70692Ozbnpynr HermannCHEM YBIDY3435-30-18 09:54:0017[facility] MxarkkmBBMUMLXFCV3832-25-22 09:54:009.3[facility] HermannCHEM DQFLY5344-20-56 17:04:004.9[facility]annCHEM IPIVR5758-09-30 17:04:001.8 [facility] YoqxdyrWFSLAMBFUT2191-05-21 17:04:0070.5[facility]annHEMATOLOGY 2016-02-12 17:04:0018.0[facility] QsozvivEOVHYEYEYA9502-31-06 17:04:009.7[facility] SmmopqiWYNKCFAWFS9410-10-14 17:04:006.4[facility] MgzfkfgMBKWEUKGCG2411-92-59 17:04:001.6[facility] HspybfnAOOAJTFEVW8821-94-63 17:04:000.5[facility] [place] UZXXYTZHFL6952-70-94 17:04:001.3[facility] VwkbovuHQSSUAZPYG3546-43-58 17:04:000.9 [facility] QwjxxteVTKPBCXJFC6468-72-86 17:04:000.1[facility]annHEMATOLOGY 2016-02-12 17:04:89327Ridldkmx GqzpwtuYCPRLDNNNO9562-25-06 17:04:006.9[facility] BtrxdzgWNYUGEUXKG1564-31-89 17:04:0033.9[facility] CjuvsefGIRYJJUENP4970-71-45 17:04:0015.1[facility] LtbrrweFYZOLUPRWK5279-35-97 17:04:002.69[facility] JCUREMGCAD0466-34-86 17:04:0096.5[facility] YqaafntPSBORPLYOG9000-22-86 17:04:00 9.1[facility] GbdjhrvXMKFWDLFMB7320-06-99 17:04:008.8[facility]annHEMATOLOGY 2016-02-12 17:04:0026.0[facility] HowkrphJTJLKXNQSQ6330-87-43 17:04:00 Test Item Value Reference Range Interpretation Comments MCH (test code = MCH) 32.7 pg 27.0-31.0 [facility] HeuoampLEHLYEHIED2731-12-59 08:18:007.7[facility]annHEMATOLOGY 2016-02-12 08:18:001.5[facility] WaadfvtVOMCRPIOTO2011-26-34 08:18:000.2[facility] HenuopfRZFSQJBFWI0006-02-65 08:18:000.2[facility] TnovjspITNHFYJZSA9058-79-47 08:18:001.2[facility] XbbphmeLIKGBGOOZQ9219-88-37 08:18:0069.4[facility] ATZESBLRVB4774-54-01 08:18:0010.5[facility] ZjoznviTQUEQSCODS3699-39-18 08:18:00 1.6[facility] RzgjmujUBYTXJKGZO3722-11-13 08:18:001.9[facility]annHEMATOLOGY 2016-02-12 08:18:0017.0[facility] DcsrdfcSUFFJPELDT0690-08-18 08:18:0028.9[facility] KnsekgbBMXYPKQRSR5994-84-88 08:18:0033.6[facility] HvhkwjhSROWKSCVDS1496-74-33 08:18:0014.6[facility] GimzjtfEDKAUEBCKL6959-42-78 08:18:0096.6[facility] [place] FCYWCTFHWS4388-45-42 08:18:00 Test Item Value Reference Range Interpretation Comments MCH (test code = MCH) 32.4 pg 27.0-31.0 [facility] KbafgzvAPFWZWFPWA6255-65-70 08:18:009.7[facility]annHEMATOLOGY 2016-02-12 08:18:0011.1[facility] DmipucpNZPGYTYLMM4500-44-31 08:18:002.99[facility] TxoxeplIEKWAIEFVL0120-01-06 08:18:15154Hnnnthnd EvwqyrbOYMJDKYCJA7824-22-31 08:18:007.4[facility] ZjwgwqlMNKYBHPMRY7760-80-47 09:02:0010.9[facility] AVUGWNBZSP8277-57-74 08:14:000.1[facility] OqdyolhYUCJVGMXAL3228-02-00 08:14:00 14.1[facility] QqaybmoATKNGRKPOK8171-91-88 18:46:00>100[facility]annBLOOD BANK UOYLSBH3955-80-25 10:38:00Negative (02/08/16 5:38 AM)[facility]annCHEM SZFMU4323-84-25 10:38:000.11[facility] JSDHE3282-80-36 05:36:00 Negative (02/05/16 12:36 AM)[facility] VVCKE6527-93-56 05:36:001 [facility] WWTUI4054-50-45 05:36:00Negative (02/05/16 12:36 AM) [facility] MKVZW3654-95-83 05:36:00Negative *NA*(02/05/16 12:36 AM)[facility] UMHLS0705-01-72 05:36:00Negative (02/05/16 12:36 AM) [facility] LCONO6999-60-16 05:36:00Clear (02/05/16 12:36 AM) [facility] LSKLI8793-87-16 05:36:006.0[facility] WMXSZ8159-65-32 05:36:00Light Yellow *NA*(02/05/16 12:36 AM)[facility] HHMUC0590-68-69 05:36:001.006[facility] XIGMV6839-00-43 21:31:00Negative (02/01/16 4:31 PM)[facility] TODBX8166-12-24 21:31:00Negative (02/01/16 4:31 PM)[facility] OVYIJ3502-79-97 21:31:00Negative (02/01/16 4:31 PM)[facility] AXXRC2180-49-36 21:31:001[facility] MGSZC6655-74-07 21:31:003[facility]INE AND XYXWS7940-01-03 21:31:005.5[facility] KMVGH7258-86-30 21:31:00Negative *NA*(02/01/16 4:31 PM)[facility] JTAHI3177-71-51 21:31:00Yellow *NA*(02/01/16 4:31 PM)[facility] YOHBZ3022-71-66 21:31:00Clear (02/01/16 4:31 PM)[facility] MKGNL3152-14-15 21:31:00 1.007[facility]UR[facility] ZROS9542-82-43 21:31:0041[facility] CHEM 2016-02-01 21:31:0070.40[facility]annURINE ZUSB1989-63-41 21:31:0038[facility] HermannCARDIAC XFZEFST4936-85-33 20:44:00<0.02[facility]annCHEM PANEL 2016-01-31 20:44:000.13[facility] HermannCHEM BNNPH6177-68-96 20:44:001.7[facility]annCHEM QKTLV0301-41-82 20:44:000.4[facility]annCHEM YNMUQ4126-07-41 20:44:007.7[facility]annCHEM VDEOT9556-21-98 20:44:0019[facility]annCHEM JLTRV3995-64-20 20:44:0023[facility]annCHEM MKAZG8035-67-88 20:44:0058 [facility]annCHEM CWTKL2141-47-16 20:44:002.8[facility]annCHEM PANEL 2016-01-31 20:44:000.6[facility]annCHEM MVUTW1684-94-18 20:44:004.9[facility]annCHEM KKFAG0985-06-81 20:44:0015[facility] XslyptxTQRZBPFVQT7630-35-80 20:44:00 Test Item Value Reference Range Interpretation Comments PTT (test code = PTT) 42.4 s 22.9-35.8 [facility] DawbzrkEIPUAWROGT2856-57-30 20:44:00 Test Item Value Reference Range Interpretation Comments PT (test code = PT) 14.6 s 12.0-14.7 [facility] LewnhdgKSJGCHDQCN5511-98-83 20:44:001.11[facility] HermannLIPIDS 2015-02-16 05:00:0077[facility] WketnjcYTRANI7557-04-40 05:00:0029[facility] JYRVLH9546-48-29 05:00:43758Bjtcsmix JufkmstNIMMVW6997-47-94 05:00:007.66 [facility] WenfqrsKALDHV9453-86-31 05:00:00274Wakjqvar ZfjczkfVYTFAB5341-45-34 05:00:16246Ftkbaudg HermannCARDIAC FWCYRPZ7555-17-39 04:23:000.8[facility] CARDIAC OXCWEGX6239-70-76 04:23:000.6[facility]annCARDIAC TNSYSDT2397-16-81 04:23:00<0.02[facility]annCARDIAC SQMEWLE9785-55-17 04:23:0076[facility]annCARDIAC UOXNQTX3057-04-23 00:27:00<0.02[facility]annCARDIAC ENZYMES 2015-02-16 00:27:0089[facility]annCARDIAC NZZAJUJ8304-94-03 00:27:001.0 [facility]annCARDIAC VEYIJTH4864-14-32 00:27:000.9[facility] HermannTHYROID OCSJR4545-52-61 00:27:002.000[facility]annCARDIAC OMOWKEZ2061-79-43 19:22:00 0.8[facility]annCARDIAC ZSZZHQQ6360-36-09 19:22:00<0.02[facility] [place] CARDIAC GDFVKEL1477-50-40 19:22:53540Xnduzlfz HermannCARDIAC XGODUDC7425-30-30 19:22:000.9[facility]annCHEM NTUDU2048-61-60 19:22:0070[facility]annCHEM YDZPO5956-24-35 19:22:0087[facility]annCHEM RDLZZ8427-22-10 19:22:0023 [facility]annCHEM DFGNB9222-21-92 19:22:0027[facility]annCHEM PANEL 2015-02-15 19:22:003.4[facility]annCHEM FDJJZ4813-40-33 19:22:007.7[facility]annCHEM PNGPX2248-00-02 19:22:000.8[facility]annCHEM JVUCZ5350-08-92 19:22:004.3[facility]annCHEM AFATY7847-65-56 19:22:006[facility]annCHEM NSKCT8362-57-59 19:22:0011.8[facility]annCHEM POEIE9543-06-60 19:22:000.4 [facility]annCHE[facility] PMYDA9621-90-95 19:22:009.2[facility]annCHEM PANEL 2015-02-15 19:22:0025[facility]annCHEM IECUC9233-73-57 19:22:0088[facility]annCHEM WAJVP3800-84-84 19:22:21547Drafkqtj HermannCHEM HWVFU7645-13-55 19:22:004.8[facility]annCHEM JFAIN8040-66-58 19:22:34185Nvugxygx HermannCHEM OLIXZ3307-08-14 19:22:001.2[facility] HermannCHEM QHTNN8199-75-56 19:22:007 [facility]annCHEM VRSMX3976-47-56 19:22:002.0[facility]annHEMATOLOGY 2015-02-15 19:22:000.4[facility] YkwwjahATRBDIXTXS2007-67-72 19:22:000.0[facility] HjakhoeTIJVLMEEAC5256-15-87 19:22:004.6[facility] KhanoqfUHPSHDZGFQ2035-88-34 19:22:000.8[facility] YrvwoqoQHUCHZKOTM1875-21-42 19:22:0010.3[facility] [place] DYTKVIQYUH2662-49-39 19:22:005.0[facility] FhoqbdnFHOMKJJOLQ9507-35-34 19:22:000.4 [facility] VciarcvIDNHXIYYLP5514-58-83 19:22:0025.7[facility] HermannHEMATOLOGY 2015-02-15 19:22:002.0[facility] SemjgvvOPUAIQSOOE2994-60-70 19:22:0058.6[facility] WyzsoybXYCHBMIUNJ5073-01-39 19:22:001.00[facility] JbkmonfZNKNZFDTBK0677-82-46 19:22:00 Test Item Value Reference Range Interpretation Comments PT (test code = PT) 13.5 s 12.0-14.7 [facility] KnlbeedXUAOFCZZQU3118-27-84 19:22:00 Test Item Value Reference Range Interpretation Comments PTT (test code = PTT) 33.7 s 22.9-35.8 [facility] YrtmxphBQNBDGEVGA2570-91-70 19:22:00419Tozxnhxo HermannHEMATOLOGY 2015-02-15 19:22:007.8[facility] WpajcllVYZQPDCYKK4601-77-57 19:22:00 Test Item Value Reference Range Interpretation Comments MCH (test code = MCH) 33.3 pg 27.0-31.0 [facility] GbzrikwQYOFIPTSWJ8216-24-14 19:22:004.62[facility]annHEMATOLOGY 2015-02-15 19:22:0097.4[facility] GnkgfexJCNZOXKFWN7028-12-82 19:22:0015.4[facility] WdttsfrFOILJBZCNO7798-46-35 19:22:0045.0[facility] ZufttfyZZXDNMQCVZ2102-37-74 19:22:0034.2[facility] UpdgwaaLFEGQDZOIW6702-09-87 19:22:007.0[facility] GWSKFGCCGN1173-35-24 19:22:0016.0[facility]annDR[facility] TJTDEI4613-22-21 20:10:00 Negative *NA*(01/23/15 3:10 PM)[facility] JJWKPM7477-87-15 20:10:00 Negative *NA*(01/23/15 3:10 PM)[facility] MEQWAN1166-96-23 20:10:00 Negative *NA*(01/23/15 3:10 PM)[facility] CJOCRQ5074-23-08 20:10:00 Negative *NA*(01/23/15 3:10 PM)[facility] GYLMWX0379-88-72 20:10:00See Note (01/23/15 3:10 PM)[facility] BARYVV3759-66-55 20:10:00Negative *NA*(01/23/15 3:10 PM)[facility] PKPHJR8340-16-48 20:10:00Positive *ABN*(01/23/15 3:10 PM)[facility] PRADRW6610-97-06 20:10:00Negative *NA*(01/23/15 3:10 PM)[facility] PBWJO8526-32-76 20:10:00Negative (01/23/15 3:10 PM)[facility] XESQG1775-62-75 20:10:00Negative (01/23/15 3:10 PM)[facility] USHFJ7188-21-70 20:10:003[facility] LQQWS1935-59-08 20:10:00<1[facility] STOOL 2015-01-23 20:10:005[facility] BXRSC7533-92-22 20:10:00Yellow *NA*(01/23/15 3:10 PM)[facility] MZFUX6352-65-99 20:10:006.0 [facility] TSIEK1902-50-43 20:10:001.017[facility] XDEVG9956-40-28 20:10:00Slight *ABN*(01/23/15 3:10 PM)[facility] QNYBD1399-98-37 20:10:00Moderate *ABN*(01/23/15 3:10 PM)[facility] JOXNZ5411-39-59 20:10:00Negative *NA*(01/23/15 3:10 PM)[facility]annCARDIAC THZDSFG3945-17-39 19:55:000.7[facility]annCARDIAC VGLXXIU8612-78-09 19:55:00 <0.02[facility]annCARDIAC SFIMAOU8755-23-28 19:55:05591Rgtydxkp [place] CARDIAC VMSDDJZ8493-23-68 19:55:001.2[facility]annCHEM DABLJ8863-24-71 19:55:0054[facility]annCHEM IVAQE7206-97-50 19:55:001.0[facility]annCHEM LBTRL4695-52-90 19:55:0023[facility]annCHEM IAFYL7919-69-69 19:55:004.3 [facility]annCHE[facility] CDJRG9852-05-92 19:55:0039[facility]annCHEM PANEL 2015-01-23 19:55:008.8[facility]annCHEM JKAAP8033-07-77 19:55:009.3[facility]annCHEM SGZBJ8531-72-68 19:55:0020.5[facility]annCHEM VHUTG7763-95-95 19:55:004.5[facility]annCHEM TWRRI3844-57-11 19:55:0010[facility]annCHEM EFAPJ5597-78-08 19:55:000.5[facility]annCHEM BAQOS9015-83-42 19:55:0088 [facility]annCHEM DQGMF5502-16-75 19:55:004.5[facility]annCHEM PANEL 2015-01-23 19:55:46015Yaumxwbs HermannCHEM CNFEO2984-89-24 19:55:0017[facility]annCHEM LKRHQ4534-23-63 19:55:15404Ggatwbvv HermannCHEM EHRNS6763-72-81 19:55:07642Dvfiklxs HermannCHEM XYIAH1034-70-27 19:55:001.5[facility]annCHEM AWNIB4580-53-72 19:55:0015[facility] NaqdssbSAWIGYBWTF7072-28-56 19:55:0089.7 [facility] UidhnymMKIMAHGXGR0895-07-15 19:55:0011.6[facility]annHEMATOLOGY 2015-01-23 19:55:000.8[facility] ArkpretTELZJAYKAG5076-26-83 19:55:006.5[facility] KyhwdpcRULPWSUIWU1337-75-44 19:55:003.2[facility] HzmzbvqIRCNSFSHPG4509-07-92 19:55:000.4[facility] SnciritACGECNNTLC2741-17-33 19:55:000.0[facility] KQKVOSZYCE0338-69-39 19:55:000.1[facility] XznglddNBMDBBQCPP5383-95-94 19:55:000.2 [facility] DerinsaMTUKYYNDRQ1508-42-72 19:55:000.4[facility]annHEMATOLOGY 2015-01-23 19:55:00 Test Item Value Reference Range Interpretation Comments PT (test code = PT) 14.2 s 12.0-14.7 [facility] TihfbkoECMTRGYWLF5873-28-79 19:55:001.07[facility]annHEMATOLOGY 2015-01-23 19:55:00 Test Item Value Reference Range Interpretation Comments PTT (test code = PTT) 31.2 s 22.9-35.8 [facility] OjxrbztXCURFYJSZJ4531-37-36 19:55:008.3[facility]annHEMATOLOGY 2015-01-23 19:55:0032.8[facility] FzepybtBWULRAUEEF8442-70-98 19:55:0017.0[facility] YgfemtqESLLFFFHSH5234-87-17 19:55:44612Zuqvvodk UtfgwjkWGQNGWTLRK6982-31-22 19:55:0051.7[facility] YywarprPONAIYPXCZ8527-79-66 19:55:0097.9[facility] [place] WKETERJFXA5357-51-72 19:55:00 Test Item Value Reference Range Interpretation Comments MCH (test code = MCH) 32.1 pg 27.0-31.0 [facility] MmzvjyrFDYWBVNARA4369-40-50 19:55:0017.0[facility]annHEMATOLOGY 2015-01-23 19:55:0012.9[facility] XcblgudEXAPWFKSYR9185-01-53 19:55:005.28[facility] AiiloieXQHQGIIGLZ2753-15-16 19:55:00<0.003[facility] HermannTOXICOLOGY 2015-01-23 19:55:00<3[facility] HermannCHEM ATMET3883-01-37 17:07:0071[facility]annCHEM HCJNA1408-14-66 17:07:000.3[facility] HermannCHEM MAPEZ7666-04-71 17:07:0018[facility]annCHEM ZKGZV5933-84-37 17:07:0088[facility]annCHEM XLDTC0491-47-79 17:07:0036[facility]annCHEM KJDUV1395-74-42 17:07:004.0 [facility]annCHEM HZOYZ6162-72-62 17:07:008.8[facility] HermannCHEM PANEL 2013-11-20 17:07:0022[facility] HermannCHEM OIFDX3659-33-56 17:07:009.5[facility]annCHEM PRZQE8567-71-14 17:07:04983Epnwyyxr HermannCHEM XCBZV3318-71-49 17:07:64648Roakkeeb HermannCHEM XLLNV0274-73-69 17:07:004.2[facility] HermannCHEM QYVHH6661-33-26 17:07:001.2[facility]annCHEM BZDPW6031-99-42 17:07:55648 [facility]annCHEM FXMTI3123-20-27 17:07:007[facility]annCHEM PANEL 2013-11-20 17:07:004.8[facility] HermannCHEM IKCFZ8097-69-05 17:07:000.8[facility] HermannCHEM BRWEI9110-96-77 17:07:006[facility]annCHEM XKDFO0959-59-61 17:07:0014.2[facility] EowdzgbVEUJJFWCYX4113-06-15 17:07:003.2[facility] ZVZWTVZYIS8196-65-00 17:07:0016.7[facility] WalequuWSCRECCEXT8480-71-68 17:07:00 6.2[facility] AriupyeFLRHVMGOJG7010-89-67 17:07:0073.3[facility] 2013-[facility]20 17:07:000.6[facility] IbossmgTCZAHAGTGX3430-13-17 17:07:000.1[facility] PvrmyhaEWYBTMHPXK9724-90-32 17:07:000.3[facility] DvmmvzqOXHMKOPKPU9776-31-45 17:07:000.6[facility] VofpqxfKTRWPXYGPC3437-09-96 17:07:001.6[facility] Kai MAWXAVCZXQ1066-92-86 17:07:006.8[facility] ZiumcsxMZUNFIDLDD8800-63-01 17:07:53207 [facility] EzucpopCTKKOCSDKL6201-79-81 17:07:007.6[facility]ann[facility]Y 2013-11-20 17:07:0033.8[facility] MqituddWJYPZJAFTC6770-11-05 17:07:0014.2[facility] LidspbcZBPNGMAEMU9896-88-80 17:07:00 Test Item Value Reference Range Interpretation Comments MCH (test code = MCH) 33.1 pg 27.0-31.0 [facility] EzvwbgqHZWBPRRPOI9260-47-49 17:07:0097.9[facility] 2013-11-20 17:07:0014.2[facility] MbdmqgaEMFBPRWKXS9351-54-34 17:07:0042.1[facility] QdrfkcyQXXVELAXOY5182-78-14 17:07:009.3[facility] WthiebxXVNVLNYHTT0333-68-83 17:07:004.30[facility] MvjesmbGVSCMOMYMT3208-44-17 17:07:007.7[facility] HermannCHEM KNUFL4578-78-48 19:25:0047[facility]annCHEM IVLTX8682-38-87 19:25:001.7 [facility]annCHE[facility] CVRJT6327-46-30 19:25:0014[facility]annELECTROLYTES 2013-11-17 19:25:004.3[facility] PbifsrsATYOVVXFRZ2125-75-37 19:25:0036.8[facility] KoqoievCIYDJYRKBR6854-82-47 19:25:0097.6[facility] KkzbbubMQWVOWAKFQ1686-69-16 19:25:00 Test Item Value Reference Range Interpretation Comments MCH (test code = MCH) 33.2 pg 27.0-31.0 [facility] XspnejeEEWPLZWXAN7939-49-48 19:25:0012.5[facility]annHE[facility]OLOGY 2013-11-17 19:25:007.7[facility] RjtmjkrOURZARDSDT0095-43-25 19:25:003.77[facility] VrttotjDQTGMPWLHB1455-29-95 19:25:0014.0[facility] SbtcgvzXZOXQRTRDD5911-22-70 19:25:41414Kscpfiiq HpbfpymDUGJBGTVPL6616-43-20 19:25:007.7[facility] [place] FWGLHBAKCE4707-61-92 19:25:0034.0[facility] KsdyphkBQUYDWQRGT5048-55-36 19:25:00 5.7[facility] JgauhoxTXKQCLIWCD8749-42-34 19:25:004.3[facility]annHE[facility]OLOGY 2013-11-17 19:25:000.0[facility] QsytiznTWGZGWSKVU8517-39-86 19:25:000.3[facility] KhimeepTNOEPWOOSO9824-07-36 19:25:005.1[facility] VzfhxwfXFQZJGLCJA9481-30-31 19:25:0016.3[facility] JafyiasIYGCRTTTXM2029-25-69 19:25:001.2[facility] [place] PUDIVSCDHG6317-60-32 19:25:000.3[facility] ElisvbfEOTTSNOBRJ3321-97-96 19:25:000.4 [facility] GweiydqXDNAXJBAQW9882-77-98 19:25:0074.0[facility] HermannTOXICOLOGY 2013-11-17 19:25:0024.4[facility] HermannCHEM QGNIK9256-16-00 18:20:0054[facility] HermannCHEM VYSJT5186-73-36 18:20:001.5[facility]annCHEM ZMLXX3035-09-43 18:20:0011[facility] FoswvzfKLCMUMQBVUPE9806-56-23 18:20:004.5[facility] [place] YVGCZDUKTE7224-72-48 18:20:00 Test Item Value Reference Range Interpretation Comments MCH (test code = MCH) 32.7 pg 27.0-31.0 [facility] UzaonlaDRMFTELCMZ3718-70-94 18:20:0033.6[facility]annHEMATOLOGY 2013-11-13 18:20:13130Gswbocfw LqafimlPWSLGIWIDX2831-51-54 18:20:0014.0[facility] FobrgdtQUWVRNJBIN9945-01-39 18:20:007.4[facility] LklihzjTKPUTBEEKU0444-94-18 18:20:0012.2[facility] EczalevMZPLAOLPJV9361-93-72 18:20:003.73[facility] [place] TIFTZDHLVS8017-88-55 18:20:0097.6[facility] OgklxwcJIEZJHLQCL3743-98-52 18:20:00 36.4[facility] XfpwdldRWYPWSBPWK5758-51-75 18:20:009.7[facility]annHEMATOLOGY 2013-11-13 18:20:000.1[facility] IqtnfztLWSRADOYAJ7614-57-80 18:20:002.0[facility] KudncmyTRPEABHXEY3315-33-04 18:20:000.7[facility] YyewqtcXYZPPWIHRM2015-98-71 18:20:000.4[facility] OiuntxnIMSALXBZTB9516-39-97 18:20:000.6[facility] RFJFPIZJZT3398-42-49 18:20:006.6[facility] DzzlrssGKQMUSSMFZ9601-54-16 18:20:00 20.5[facility] WyqcmzwTVREQYYJTI0017-56-42 18:20:007.3[facility]annHEMATOLOGY 2013-11-13 18:20:003.7[facility] GgkwoiyCMGDFHCHHQ0545-19-74 18:20:0067.9[facility] SegvywlINQKMIRGBD2885-94-48 18:20:0024.1[facility] [place]
[2020-08-25 09:55] LABS: Absolute Lymphocytes (CBC) 1.2 K/uL (0.7-4.9); Basophils % 0.6 % (0-1.3); Hematocrit 43.6 % (39.6-49.0); Lymphocytes % 11.6 % (15.3-44.8); MPV 8.3 fL (7.6-11.3); RBC Red Blood Cell Count 4.72 M/uL (4.33-5.43)
[2020-08-25] MEDS ORDERED: LORazepam 2 MG/ML VIAL ONE (10:09)
[2020-08-25 10:18] LABS: ALT/SGPT 21 U/L (12-78); AST/SGOT 16 U/L (15-37); Albumin 3.9 g/dL (3.4-5.0); Alkaline Phosphatase 105 U/L (45-117); BUN Blood Urea Nitrogen 15 mg/dL (7-18); Bicarbonate 25 mmol/L (21-32); Bilirubin Direct 0.1 mg/dL (0-0.2); Bilirubin Total 0.3 mg/dL (0.2-1.0); Glucose Level 116 mg/dL (74-106); Potassium 3.7 mmol/L (3.5-5.1); Protein, Total 8.5 g/dL (6.4-8.2); Sodium Level 138 mmol/L (136-145)
[2020-08-25] MEDS ORDERED: NA CHLORIDE 0.9% 1,000 ML ONE (10:28)
[2020-08-25 11:01] LABS: Protime INR 1.07
[2020-08-25] MEDS ORDERED: levETIRAcetam 1,000 MG in NA CHLORIDE 0.9% 100 ML IV ONE (12:15)
[2020-08-25] MEDS ORDERED: LOPERAMIDE HCL 2 MG CAPSULE ONE (14:30)
--- NOTE | 2020-08-25 16:46 | EDPHYS ---
Physician Documentation [facility] Name: Karlos Leblanc Age: 54 yrs Sex: Male : 1965 Arrival Date: 08/25/2020 Time: 09:29 Bed 2 Private MD: ED Physician Aaron Pichardo HPI: 08/25 10:00 This 54 yrs old Male presents to ER via EMS with complaints of Seizure. jmm 10:00 The patient presents after having a single isolated seizure, that lasted 10 minute(s). jmm Character of seizure(s): Loss of consciousness: the patient experienced loss of consciousness, Motor activity: generalized. Seizure onset: just prior to arrival. Context: the seizure(s) was witnessed, neighbor. This is a 54 year old male with a history of COPD, CVA, DM, [place] that presents to the ED after a seizure which occurred jhust prior to arrival. Patient states he does take his keppra as prescribed but has had increased stress due to losing his parents home. . Historical: - Allergies: 09:32 NKDA; ss - Home Meds: 09:36 levetiracetam 500 mg oral tab 1 tab 2 times per day [Active]; ss - PMHx: 09:32 ADD/ADHD; CHF; COPD; CVA; Diabetes - NIDDM; Myocardial infarction; PVD; Seizures; skin ss cancer; - Immunization history:: Adult Immunizations up to date. - Social history:: Smoking status: Patient reports the use of cigarette tobacco products, smokes two packs cigarettes per day. ROS: 10:00 Constitutional: Negative for fever, chills, and weight loss, Cardiovascular: Negative jmm for chest pain, palpitations, and edema, Respiratory: Negative for shortness of breath, cough, wheezing, and pleuritic chest pain. 10:00 Neuro: Positive for seizure activity. 10:00 All other systems are negative. Exam: 10:00 Constitutional: This is a well developed, well nourished patient who is awake, alert, jmm and in no acute distress. Head/Face: atraumatic. Eyes: EOMI, no conjunctival erythema appreciated ENT: Moist Mucus Membranes Neck: Trachea midline, Supple Chest/axilla: Normal chest wall appearance and motion. Cardiovascular: Regular rate and rhythm. No edema appreciated Respiratory: Normal respirations, no respiratory distress appreciated Abdomen/GI: Non distended, soft Back: Normal ROM Skin: General appearance color normal MS/ Extremity: Moves all extremities, no obvious deformities appreciated, no edema noted to the lower extremities Neuro: Awake and alert, normal gait Psych: Behavior is normal, Mood is normal, Patient is cooperative and pleasant Vital Signs: 09:29 BP 174 / 80; Pulse 89; Resp 15; Temp 98.9(TE); Pulse Ox 99% on R/A; Weight 84.37 kg; ss Height 6 ft. 1 in. (185.42 cm); Pain 0/10; 10:00 BP 163 / 80; Pulse 102; Resp 28; Pulse Ox 100% ; sv 10:30 BP 171 / 84; Pulse 110; Resp 27; Pulse Ox 99% on R/A; hb 11:30 BP 168 / 84; Pulse 80; Resp 22; Pulse Ox 96% on R/A; hb 12:27 BP 156 / 82; Pulse 71; Resp 24; Pulse Ox 96% on R/A; hb 13:30 Pulse 70; Resp 24; Pulse Ox 99% ; sv 17:07 Pulse 72; Resp 18; Pulse Ox 99% ; sv 09:29 Body Mass Index 24.54 (84.37 kg, 185.42 cm) ss Sutter Coma Score: 09:32 Eye Response: spontaneous(4). Verbal Response: oriented(5). Motor Response: obeys ss commands(6). Total: 15. MDM: 09:36 Patient medically screened. [facility] 16:43 Data reviewed: vital signs, nurses notes. Counseling: I had a detailed discussion with [facility] the patient and/or guardian regarding: the historical points, exam findings, and any diagnostic results supporting the discharge/admit diagnosis, lab results, the need for outpatient follow up, to return to the emergency department if symptoms worsen or persist or if there are any questions or concerns that arise at home. ED course: Patient states feeling much better. Will d/c. Advised to follow up with neuro. Patient understood and agrees with the plan of care. . 08/25 09:41 Order name: Acetaminophen; Complete Time: 10:24 [facility] 08/25 09:41 Order name: Basic Metabolic Panel; Complete Time: 10:24 [facility] 08/25 09:41 Order name: CBC with Diff; Complete Time: 10:05 [facility] 08/25 09:41 Order name: ETOH Level; Complete Time: 10:19 [facility] 08/25 09:41 Order name: Hepatic Function; Complete Time: 10:24 [facility] 08/25 09:41 Order name: PT-INR; Complete Time: 11:12 [facility] 08/25 09:41 Order name: Ptt, Activated; Complete Time: 11:12 [facility] 08/25 09:41 Order name: Salicylate; Complete Time: 10:54 [facility] 08/25 10:00 Order name: Troponin (emerg Dept Use Only); Complete Time: 11:12 [facility] 08/25 09:41 Order name: EKG; Complete Time: 09:42 [facility] 08/25 09:41 Order name: EKG - Nurse/Tech; Complete Time: 10:06 [facility] 08/25 09:41 Order name: IV Saline Lock; Complete Time: 09:46 [facility] 08/25 09:41 Order name: Labs collected and sent; Complete Time: 09:46 [facility] 08/25 15:40 Order name: PO challenge; Complete Time: 17:07 [facility] Administered Medications: 09:53 Drug: Ativan 2 mg Route: IVP; Site: right antecubital; hb 10:28 Follow up: Response: No adverse reaction hb 10:17 Drug: NS 0.9% 1000 ml Route: IV; Rate: 1 bolus; Site: right antecubital; hb 11:30 Follow up: Response: No adverse reaction; IV Status: Completed infusion; IV Intake: hb 1000ml 17:54 Follow up: Response: No adverse reaction; IV Status: Completed infusion; IV Intake: hb 1000ml 12:41 Drug: Keppra 1000 mg Route: IV; Rate: calculated rate; Site: right forearm; hb 13:00 Follow up: IV Status: Completed infusion; IV Intake: 100ml hb 13:15 Follow up: Response: No adverse reaction hb 14:16 Drug: Imodium A-D 4 mg Route: PO; hb 15:00 Follow up: Response: No adverse reaction sv Disposition: 08/26 07:16 Co-signature as Attending Physician, Aaron Pichardo MD I agree with the assessment and riya plan of care. Disposition: 08/25/20 16:45 Discharged to Home. Impression: Epilepsy and recurrent seizures. - Condition is Stable. - Discharge Instructions: Seizure, Adult. - Medication Reconciliation Form, Thank You Letter, Antibiotic Education, Prescription Opioid Use form. - Follow up: Private Physician; When: 2 - 3 days; Reason: Recheck today's complaints, Continuance of care, Re-evaluation by your physician. Signatures: Dispatcher [employer] Lata Cody RN RN Aaron Oconnor MD MD cha Mickail, Joel, PA PA jmm Smirch, Shelby, RN RN Latia Haney RN RN Corrections: (The following items were deleted from the chart) 08/25 17:07 16:45 08/25/2020 16:45 Discharged to Home. Impression: Epilepsy and recurrent seizures. sv Condition is Stable. Forms are Medication Reconciliation Form, Thank You Letter, Antibiotic Education, Prescription Opioid Use. Follow up: Private Physician; When: 2 - 3 days; Reason: Recheck today's complaints, Continuance of care, Re-evaluation by your physician. nirmal
--- NOTE | 2020-08-25 16:46 | ER ---
Nurse's Notes [facility] Name: Karlos Leblanc Age: 54 yrs Sex: Male : 1965 Arrival Date: 08/25/2020 Time: 09:29 Bed 2 Private MD: Diagnosis: Epilepsy and recurrent seizures Presentation: 08/25 09:29 Chief complaint: EMS states: "His neighbor said he was having a seizure. Lasting what ss seemed to be 10 minutes." Pt has a hx of seizures. Coronavirus screen: Client denies travel out of the [place] in the last 14 days. Ebola Screen: Patient denies exposure to infectious person. Patient denies travel to an Ebola-affected area in the 21 days before illness onset. Initial Sepsis Screen: Does the patient meet any 2 criteria? No. Patient's initial sepsis screen is negative. Does the patient have a suspected source of infection? No. Patient's initial sepsis screen is negative. Risk Assessment: Do you want to hurt yourself or someone else? Patient reports no desire to harm self or others. Onset of symptoms was August 25, 2020. Care prior to arrival: Glucose check: 103. 09:29 Method Of Arrival: EMS: [facility] ss 09:29 Acuity: KENIA 3 ss 10:00 Acuity: KENIA 2 sv Historical: - Allergies: 09:32 NKDA; ss - Home Meds: 09:36 levetiracetam 500 mg oral tab 1 tab 2 times per day [Active]; ss - PMHx: 09:32 ADD/ADHD; CHF; COPD; CVA; Diabetes - NIDDM; Myocardial infarction; PVD; Seizures; skin ss cancer; - Immunization history:: Adult Immunizations up to date. - Social history:: Smoking status: Patient reports the use of cigarette tobacco products, smokes two packs cigarettes per day. Screenin:33 Abuse screen: Denies threats or abuse. Denies injuries from another. Nutritional ss screening: No deficits noted. Tuberculosis screening: Never had TB. Fall Risk Fall in past 12 months (25 points). Secondary diagnosis (15 points) seizures, IV access (20 points). Ambulatory Aid- None/Bed Rest/Nurse Assist (0 pts). Gait- Normal/Bed Rest/Wheelchair (0 pts) Mental Status- Oriented to own ability (0 pts). Assessment: 09:35 General: Appears in no apparent distress. Behavior is calm, cooperative. Pain: Denies hb pain. Neuro: Level of Consciousness is awake, alert, obeys commands, Oriented to person, place, time, situation. Cardiovascular: Patient's skin is warm and dry. Respiratory: Respiratory effort is even, unlabored, Respiratory pattern is regular, symmetrical. GI: No signs and/or symptoms were reported involving the gastrointestinal system. : No signs and/or symptoms were reported regarding the genitourinary system. EENT: No signs and/or symptoms were reported regarding the EENT system. Derm: Skin is pink, warm \\T\\ dry. Musculoskeletal: No signs and/or symptoms reported regarding the musculoskeletal system. 09:53 Reassessment: Pt seizing,PHUONG Hubbard at bedside, Ativan 2mg IVP administered as ordered. hb 10:28 Reassessment: No seizure activity noted at this time, pt is post ictal. NAD. VSS. hb 11:30 Reassessment: Patient appears in no apparent distress at this time. No changes from hb previously documented assessment. Patient and/or family updated on plan of care and expected duration. Pain level reassessed. 12:28 Reassessment: Patient appears in no apparent distress at this time. No changes from hb previously documented assessment. Patient and/or family updated on plan of care and expected duration. Pain level reassessed. 13:30 Reassessment: Patient appears in no apparent distress at this time. Patient and/or hb family updated on plan of care and expected duration. Pain level reassessed. 14:42 Reassessment: Patient appears in no apparent distress at this time. No changes from sv previously documented assessment. Pt resting in the stretcher with eyes closed. Respirations even and unlabored. 17:07 Reassessment: Patient appears in no apparent distress at this time. Patient and/or sv family updated on plan of care and expected duration. Pain level reassessed. Patient is alert, oriented x 3, equal unlabored respirations, skin warm/dry/pink. Vital Signs: 09:29 BP 174 / 80; Pulse 89; Resp 15; Temp 98.9(TE); Pulse Ox 99% on R/A; Weight 84.37 kg; ss Height 6 ft. 1 in. (185.42 cm); Pain 0/10; 10:00 BP 163 / 80; Pulse 102; Resp 28; Pulse Ox 100% ; sv 10:30 BP 171 / 84; Pulse 110; Resp 27; Pulse Ox 99% on R/A; hb 11:30 BP 168 / 84; Pulse 80; Resp 22; Pulse Ox 96% on R/A; hb 12:27 BP 156 / 82; Pulse 71; Resp 24; Pulse Ox 96% on R/A; hb 13:30 Pulse 70; Resp 24; Pulse Ox 99% ; sv 17:07 Pulse 72; Resp 18; Pulse Ox 99% ; sv 09:29 Body Mass Index 24.54 (84.37 kg, 185.42 cm) [place] Coma Score: 09:32 Eye Response: spontaneous(4). Verbal Response: oriented(5). Motor Response: obeys ss commands(6). Total: 15. ED Course: 09:29 Patient arrived in ED. ss 09:31 Triage completed. 09:32 Stevie Payne PA is PHCP. [facility] 09:32 Aaron Pichardo MD is Attending Physician. [facility] 09:32 Arm band placed on right wrist. ss 09:33 Patient has correct armband on for positive identification. Bed in low position. Call ss light in reach. Side rails up X2. Seizure precautions initiated. environmental monitoring specialist on. Pulse ox on. NIBP on. Warm blanket given. 09:33 Patient maintains SpO2 saturation greater than 95% on room air. ss 09:40 Inserted saline lock: 20 gauge in right antecubital area, using aseptic technique. jb1 Blood collected. 09:40 Missed attempt(s): 20 gauge in left antecubital area. jb1 10:06 EKG done, by ED staff, reviewed by Aaron Pichardo MD. jb1 10:28 Latia Haney, RN is Primary Nurse. hb 17:07 No provider procedures requiring assistance completed. IV discontinued, intact, sv bleeding controlled, No redness/swelling at site. Pressure dressing applied. Administered Medications: 09:53 Drug: Ativan 2 mg Route: IVP; Site: right antecubital; hb 10:28 Follow up: Response: No adverse reaction hb 10:17 Drug: NS 0.9% 1000 ml Route: IV; Rate: 1 bolus; Site: right antecubital; hb 11:30 Follow up: Response: No adverse reaction; IV Status: Completed infusion; IV Intake: hb 1000ml 17:54 Follow up: Response: No adverse reaction; IV Status: Completed infusion; IV Intake: hb 1000ml 12:41 Drug: Keppra 1000 mg Route: IV; Rate: calculated rate; Site: right forearm; hb 13:00 Follow up: IV Status: Completed infusion; IV Intake: 100ml hb 13:15 Follow up: Response: No adverse reaction hb 14:16 Drug: Imodium A-D 4 mg Route: PO; hb 15:00 Follow up: Response: No adverse reaction sv Intake: 11:30 IV: 1000ml; Total: 1000ml. hb 13:00 IV: 100ml; Total: 1100ml. hb 17:54 IV: 1000ml; Total: 2100ml. hb Output: 12:30 Stool: 1 (Loose Stool) ; Total: 0ml. sv 14:00 Stool: 1 (Loose Stool) ; Total: 0ml. sv Outcome: 16:45 Discharge ordered by MD. kinney 17:07 Discharged to home via wheelchair. sv 17:07 Condition: stable 17:07 Condition: improved 17:07 Discharge instructions given to patient, Instructed on discharge instructions, follow up and referral plans. Demonstrated understanding of instructions, follow-up care. 17:07 Patient left the ED. sv Signatures: Anatoliy Fuentes Stephanie, RN RN sv Stevie Payne PA PA jmm Smirch, Shelby, RN RN Latia Haney, TAVO RN hb
[2020-08-25 17:57] VITALS: TEMP 98.9
[2020-08-25 18:05] VITALS: BP 156/82; O2SAT 96
--- NOTE | 2020-08-26 06:54 | EKG ---
Test Date: 2020-08-25 Test Time: 09:57:50 [place]ager Operator: AG MEASUREMENT RESULTS: Intervals: Rate: 95 HI: 152 QRSD: 98 QT: 360 QTc: 452 [place]: P: 72 HI: 152 QRS: 17 T: 86 INTERPRETIVE STATEMENTS: Normal sinus rhythm ST & T wave abnormality, consider lateral ischemia Abnormal ECG Compared to ECG 02/29/2020 15:20:49 ST (T wave) deviation now present Possible ischemia now present Electronically Signed On 08-26-20 06:51:39 CDT by Bill Clark
== END 2020-08-25 17:07 | disposition home or self-care (01) ==
LOC: ER 09:23
DX: G40.802 Other epilepsy, not intractable, without status epilepticus (principal); E11.9 Type 2 diabetes mellitus without complications; J44.9 Chronic obstructive pulmonary disease, unspecified; F17.210 Nicotine dependence, cigarettes, uncomplicated
CPT/HCPCS: 85025; 80048; 36415; 80320; 80329 ×2; 85610; 80076; 85730; 84484; J1953; J7030; 93005; 96361; 96365; 96375; 99285

== ENCOUNTER 2020-10-03 12:25 | Observation (INO) | payer OTHER ==
--- OUTSIDE RECORDS SUMMARY | 2020-10-03 12:35 | XMS REPORT | Continuity of Care Document ---
:1965 Author Organization [facility] t Address [address] [place] [address] Care Team Providers Name Role Phone Janette [...] 00:00:00 - Medical MEDICARE [facility] [id number], [place] [id number] Contracted Problems Condition Condition Condition Status Onset [...] Mem oria 06-04 09:38:00 l ANEMIA 00:00: Kai 00 Active 04/04/2016 [facility] OTHER Diagnosis Active 2015-052016-03-13 Mem oria 19:39:00 l OTHER 00:00: Kai 00 Active 03/13/2016 [facility] LEFT FOOT Diagnosis Active 2016-01-31 Memoria SORES 01-30 22:38:00 l LEFT 00:00: [place] FOOT SORES 00 Active 01/31/2016 [facility] FOOT Diagnosis Active 2016-02-12 Mem oria GANGRENE 01-30 20:08:00 l FOOT 00:00: Kai GANGRENE 00 Active 01/31/2016 [facility] CHEST PAIN Diagnosis Active 2015-02-15 Memoria 02-15 18:21:00 l CHEST 00:00: [place] PAIN 00 Active 02/15/2015 [facility] CP Diagnosis Active 2015-02-15 Mem oria 02-15 16:10:00 l CP 00:00: Kai 00 Active 02/15/2015 [facility] LEFT WRIST Diagnosis Active 2015-02-09 Memoria PAIN 9-15 16:02:00 l LEFT 00:00: [place] WRIST PAIN 00 Active 02/09/2015 [facility] AMS Diagnosis Active 2015-01-23 Mem oria 01-23 15:36:00 l AMS 00:00: [place] 00 Active 01/23/2015 [facility] WOUND Diagnosis Active 2014-02-12 Mem oria INFECTION 10-20 13:06:00 l V WOUND 00:00: Kai NECFAS;CHR INFECTION 00 ONIC V OSTEOMY NECFAS;CHR ONIC OSTEOMY Active 10/20/2013 [facility] Acute Problem Active 2016-04-08 Memor ia osteomyeli 03:42:03 l tis Acute Kai (disorder) osteomyeli tis (disorder) Active Problem 04/08/2016 [facility] Congestive Problem Active 2016-04-08 M emoria heart 03:42:03 l failure [place] (disorder) Congestive heart failure (disorder) Active Problem 04/08/2016 [facility] Hypertensi Problem Active 2016-04-08 M emoria ve 03:42:03 l disorder, Kai systemic Hypertensi arterial ve (disorder) disorder,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 (disorder) Active Problem 04/08/2016 [facility] Bronchitis Problem Active 2016-04-08 M emoria (disorder) 03:42:03 l Kai Bronchitis (disorder) Active Problem 04/08/2016 [facility] Chronic Problem Active 2016-04-08 Ed bandar obstructiv 03:42:03 l e lung Chronic [place] disease obstructiv (disorder) e lung disease (disorder) Active Problem 04/08/2016 [facility] Epistaxis Problem Active 2016-04-08 Me moria (disorder) 03:42:03 l [place] Epistaxis (disorder) Active Problem 04/08/2016 [facility] History of Problem Active 2016-04-08 M emoria - 03:42:03 l infectious History Her cook disease of - (context-d infectious ependent disease category) (context-d ependent category) Active Problem 04/08/2016 [facility] History of Problem Active 2016-04-08 M emoria amputation 03:42:03 l of lesser History Herm delisa toe of (situation amputation ) of lesser toe (situation ) Active Problem 04/08/2016 [facility] History of Problem Active 2016-04-08 M emoria - 03:42:03 l cardiovasc History Her cook ular of - disease cardiovasc (context-d ular ependent disease category) (context-d ependent category) Active Problem 04/08/2016 [facility] Benign Problem Active 2016-04-08 Memor ia prostatic 03:42:03 l hyperplasi Benign Herm delisa a prostatic (disorder) hyperplasi a (disorder) Active Problem 04/08/2016 [facility] CELLULITIS Diagnosis Active 2014-02-12 Memoria OF FOOT 13:06:00 l Kai CELLULITIS OF FOOT Active [facility] AC Diagnosis Active 2014-02-12 Mem oria OSTEOMYELI 13:06:00 l TIS-UNSPEC AC Raudel n OSTEOMYELI TIS-UNSPEC Active [facility] CHEST PAIN Diagnosis Active 2015-02-15 Memoria NOS 18:21:00 l CHEST Kai PAIN NOS Active [facility] GANGRENE, Diagnosis Active 2016-02-12 Memoria NOT 20:08:00 l ELSEWHERE [place] CLASSIFIED GANGRENE, NOT ELSEWHERE CLASSIFIED Active [facility] ANEMIA, Diagnosis Active 2016-04-05 Me moria UNSPECIFIE 09:38:00 l D ANEMIA, Kai UNSPECIFIE D Active [facility] History of Past Illness Condition Condition Condition Status Onset Resolution Last Treating Co mments Source Name Details Category Date Date Treatment Clinician Date Discharge Problem 2015-052016-03-17 2016-03-17 Memoria Diagnosis: 0-18 03:02:37 03:02:37 l Acute on 05:00: Kai chronic Discharge 00 renal Diagnosis: failure Acute on chronic renal failure 03/14/2016 03/17/2016 [facility] Discharge Problem 2015-052016-03-17 2016-03-17 Memoria Diagnosis: 0-18 03:02:37 03:02:37 l Anemia 05:00: [place] Discharge 00 Diagnosis: Anemia 03/14/2016 03/17/2016 [facility] Discharge Problem 2015-052016-03-17 2016-03-17 Memoria Diagnosis: 0-18 03:02:37 03:02:37 l Post-opera 05:00: Raudel n tive pain Discharge 00 Diagnosis: Post-opera tive pain 03/14/2016 03/17/2016 [facility] Discharge Problem 2015-052016-03-17 2016-03-17 Memoria Diagnosis: 0 03:02:37 03:02:37 l Acute 05:00: Kai hypokalemi Discharge 00 a Diagnosis: Acute hypokalemi a 03/14/2016 03/17/2016 [facility] Discharge Problem 2015-02-19 2015-02-19 Memoria Diagnosis: 02-16 07:51:51 07:51:51 l Hyperlipid 14:36: Raudel n emia Discharge 09 Diagnosis: Hyperlipid emia 02/16/2015 02/19/2015 [facility] Discharge Problem 2015-02-19 2015-02-19 Memoria Diagnosis: 02-16 07:51:51 07:51:51 l Hypertensi 14:36: Raudel n on Discharge 00 Diagnosis: Hypertensi on 02/16/2015 02/19/2015 [facility] Discharge Problem 2015-02-19 2015-02-19 Memoria Diagnosis: 02-16 07:51:51 07:51:51 l Angina 14:35: Kai pectoris Discharge 54 Diagnosis: Angina pectoris 5 02/19/2015 [facility] Discharge Problem 2015-02-12 2015-02-12 Memoria Diagnosis: 02-09 09:59:31 09:59:31 l Wrist 05:00: Kai sprain Discharge 00 Diagnosis: Wrist sprain 02/09/2015 02/12/2015 [facility] Discharge Problem 2015-01-26 2015-01-26 Memoria Diagnosis: 01-23 02:07:27 02:07:27 l Epileptic 05:00: [place] seizure, Discharge 00 generalize Diagnosis: d Epileptic seizure, generalize d 01/23/2015 01/26/2015 [facility] Discharge Problem 2015-01-26 2015-01-26 Memoria Diagnosis: 01-23 02:07:27 02:07:27 l Cerebral 05:00: Kai seizure Discharge 00 Diagnosis: Cerebral seizure 01/23/2015 01/26/2015 [facility] Allergies, Adverse Reactions, Alerts Allergy Allergy Status Severity Reaction(s) Onset Inactive Treating Comm ents Source Name Type Date Date Clinician No Known DA Active U 2018-05 [facility] Allergie 0-10 [facility] s 00:00: Health 00 are [facility] Morphine Propensi Active Other (See 2016-05 Headache [facility] ty to Comments) 06-16 [facility] - adverse 00:00: Medical reaction 00 [place] s morphine morphine Active Thomas Quinn Social History Social Habit Start Date Stop Date Quantity Comments Source Sex Assigned At [facility] Cigarettes smoked 2017-04-16 2017-04-16 [facility] - current (pack per 00:00:00 00:00:00 [facility] day) - Reported Tobacco use and 2017-04-16 2017-04-16 Current user [facility] - exposure 00:00:00 00:00:00 [facility] Social History 2013-10-21 2013-10-21 [facility] Myriam joann 05:36:39 05:36:39 Smoking Status Start Date Stop Date Source Current every day smoker 2017-04-16 00:00:00 [facility] Medications Ordered Filled Start Stop [...] 00:00: daily. Medic al MG tablet 00 [place] amLODIPine Yes 10mg QD Take [address] (NORVASC) 4- by mouth [facility] - 10 MG 00:00: daily. 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 Acetaminoph 2015-05 No 1 [...] Memoria 0-18 Same as: l 04:18: Dilaudid [place] 00 Sodium 2015-05 No 500 mL, Memoria [...] bandar 02-16 (Same As: l 20:00: Rocephin). [place] Use with 100 mL NS and infuse [...] oral 02-16 tab, PO, l tablet 12:57: [id number], 0 Denita nn 00 Refill(s) pantoprazol Yes 40 mg = 1 M emoria e 40 mg 02-16 tab, PO, l oral 12:57: Before [place] enteric 00 Breakfast, coated 0 tablet Refill(s) [...] moria 16 infuse l 11:00: over 2.5 [place] 00 hours metoprolol No Notes: Memor ia [...] Dosing per l RPh 19:51: RPh, ., [place] 00 Drug form: MISC, Route: MISC, PRN, PRN Other -See Comment, 02/09/16 14:51:00 CDT, Duration: 30 day, Stop date: 03/10/16 14:50:00 CDT Dilaudid No Notes: Memoria 02-08 Same as: l 18:01: Dilaudid Kai 00 Sodium No 500 mL, Memoria Chloride 02-08 500 ml/hr, l 0.154 17:59: Infuse [place] MEQ/ML 00 Over: 1 Injectable hr, Route: [...] e 02-08 Tablet l 14:00: should not [place] 00 be chewed or crushed. (Same as: Protonix) Simvastatin No Notes: Ed bandar 02-08 (Same as: l 02:00: Zocor) Kai 00 Cefuroxime No 1.5 gm, Ed bandar 02-08 Route: l 02:00: IVPB, [place] 00 [id number], Dosing Weight 96.023, kg, Start date: 02/08/16 21:00:00 CDT, Duration: 3 doses or times, Stop date: 02/09/16 13:00:00 CDT Neutra-Phos No Notes: Ed bandar 9-14 Same as: l 01:04: Phos-Nak [place] 00 Mix 1 packet with 75 mL water or juice. Each packet has 160mg of sodium, 280mg of potassium, and 250mg of phosphorus Non-Formu puneet Item potassium No Notes: Memori a phosphate + 9-14 (Same as: l sodium 01:04: K [place] chloride 00 Phosphate. 0.9% 500 ml ) [...] Oxide -14 (Same as: l 01:04: Mag-Ox Kai 00 400) Magnesium oxide [id number] g elemental magnesium Dose=____m g magnesium oxide (___mg elemental magnesium) Magnesium No Notes: Memori a Sulfate 14 WASTE: F/P l 01:04: - Sink; E Kai 00 - Municipal Trash Bin potassium No Notes: Memori a chloride 9-14 (Same as: l 01:04: Potassium Kai 00 Chloride) sodium No 15 mmol, 5 [...] WASTE: F/P l 01:04: - Sink; E [place] 00 - Municipal Trash Bin Albuterol No Notes: SEE Me moria 0.83 MG/ML 02-08 RT l Inhalant 01:04: DOCUMENTAT Her cook Solution 00 ION (Same as: Proventil) Dextrose No 25 gm, 50 Ed bandar 50% Syringe -14 mL, Route: l 01:04: IVP, Drug [place] 00 Form: INJ, Dosing Weight 96.023, kg, PRN, PRN Blood Glucose Results, Start date: 02/08/16 20:04:00 CDT, Duration: 30 day, Stop date: 03/09/16 20:03:00 CDT Docusate No Notes: Memoria 02-08 (Same as: l 01:04: Colace) [place] 00 (Do Not Crush) Glucagon No 1 mg, Memoria 02-08 Route: IM, l 01:04: Drug form: Kai 00 PDR/INJ, PRN, Dosing Weight 96.023, kg, PRN Blood Glucose Results, Start date: 02/08/16 20:04:00 CDT, Duration: 30 day, Stop date: 03/09/16 20:03:00 CDT Acetaminoph No Notes: Ed bandar en 325 MG / 02-08 (Same as: l Hydrocodone 01:04: [place] Denita nn Bitartrate 00 325/5) Do 5 [...] INJ (ANES) 02-07 Total l 14:08: Volume: [place] 00 1,000, Start date: 02/08/16 9:08:00 CDT, [...] ia 02-07 Child:10-2 l 12:00: 0mg/kg ,<= [place] 00 600mg/day. Protect from light (Same as: Rifadin) Lidocaine 2016-0 No 5 mg, Memoria Hydrochlori 02-07 Route: l de 10 MG/ML 12:00: INTRADERM, [place] Injectable 00 Dosing Solution Weight 98.636, kg, ONCALL, Start date: 02/08/16 7:00:00 CDT, Duration: 30 day, Stop date: 03/09/16 6:59:00 CDT Lactated 0 No 1,000 mL, Ed bandar Ringers 02-07 Rate: 40 l 1,000 mL 11:31: ml/hr, [place] 00 Infuse over: 25 hr, Route: IV, Dosing Weight 98.636 kg, Total Volume: 1,000, Start date: 02/08/16 6:31:00 CDT, Duration: 30 day, Stop date: 03/09/16 6:30:00 CDT Roxicodone No 15 mg, Memor ia 9-12 Route: PO, l 17:00: Drug form: [place] 00 TAB, Q4H, Start date: 02/07/16 12:00:00 CDT, Stop date: 03/08/16 8:00:00 CDT Roxicodone No Notes: Memor ia 9-12 (Same as: l 15:35: Roxicodone [place] 00 ) oxyCODONE 0 No 15 mg, Memori a 10 mg 9 Route: PO, l extended 23:00: Drug form: Her cook release 00 ERTAB, Q6H, Start date: 02/05/16 18:00:00 CDT, Duration: 30 day, Stop date: 03/06/16 12:00:00 CDT Roxicodone 2015-0 No Notes: Memor ia 9-10 (Same as: l 20:21: Roxicodone Kai 00 ) Dilaudid 0 No Notes: Memoria [...] moria 02-01 infuse l 20:00: over 2.5 [place] 00 hours atorvastati No Notes: Ed bandar n 02-01 (Same as: l 02:00: Lipitor) Vancomycin No 1 ea, Thomas a 01-31 Route: l 20:00: MISC, [place] Dosing Weight 97.273, kg, ONCALL, Start date: 02/01/16 15:00:00 CDT, Duration: 1 doses or times, Pharmacy to dose Acetaminoph No Notes: Do M emoria en 325 MG / 01-31 not exceed l Hydrocodone 18:10: 4gm/day of Kai Bitartrate acetaminop 10 MG Oral hen. Tablet (Same as: [[place] 10/325] 325/10) Tylenol No Notes: Do Memor ia 01-31 not exceed l 18:02: 4 gm/day. (Same as: Tylenol) Vancomycin No 2001 mg: Me moria 01-31 infuse l 18:00: over 2.5 [place] 00 hours MEDICATION WASTE Product Size: 1000 [...] as: l / 13:22: Duoneb) Ipratropium 00 [place] 0.167 MG/ML Inhalant Solution Zofran No Notes: Memoria 01-31 (Same as: l 06:24: Zofran) MEDICATION WASTE Product Size: 4 mg Product Wasted: ___ mg Dilaudid No Notes: Memoria 01-31 Same as: l 06:23: Dilaudid [place] 00 Acetaminoph No 1 tab, PO, Memoria [...] tab, PO, l tablet 04:53: Daily, # [place] 00 30 tab, 0 Refill(s) atorvastati Yes 40 mg = 1 M emoria n 40 mg 01-31 tab, PO, l oral tablet 04:53: Bedtime, # [place] 00 30 tab, 0 Refill(s) Anoro Yes 1 puff, Memoria Ellipta 01-31 INHALER, l 62.5 mcg-25 04:53: Daily, # 1 [place] mcg 00 ea, 3 inhalation Refill(s) powder Alprazolam Yes 2 mg = 1 Mem oria 2 MG Oral 01-31 tab, PO, l Tablet 04:53: BID, PRN [place] 00 Anxiety, # 20 tab, 0 Refill(s) [...] 01-31 Route: PO, l 03:28: Drug form: [place] 00 TAB, ONCE, Dosing Weight 95, kg, Priority: STAT, Start date: 01/31/16 22:28:00 CDT, Stop date: 01/31/16 22:28:00 CDT Piperacilli No Notes: Ed bandar 01-30 (Same as: l tazobactam 22:57: Zosyn) Denita nn 00 Dosing based on Piperacill in component MEDICATION WASTE Product Size: 3375 mg Product Wasted: ___ mg Vancomycin No 2000 mg: Me moria 01-30 infuse l 22:57: over 2.5 [place] 00 hours MEDICATION WASTE Product Size: 1000 mg Product Wasted: ___ mg Sodium No 1,000 mL, Memori a Chloride 01-30 2,000 l 0.154 22:04: ml/hr, [place] MEQ/ML 00 Infuse Injectable Over: 30 Solution minutes, Route: IV, 1,000, Drug form: INJ, ONCE, Priority: STAT, Dosing Weight 95 kg, Start date: 01/31/16 17:04:00 CDT, Duration: 1 doses or times, Stop date: 01/31/16 17:04:00 CDT Acetaminoph No Notes: Do M emoria en 325 MG / 01-30 not exceed l Hydrocodone 21:57: 4gm/day of Bitartrate acetaminop 10 MG Oral hen. Tablet (Same as: [[place] 10/325] 325/10) Amlodipine Yes 10 mg, PO, [...] / 02-16 (Same as: l Hydrocodone 04:39: [place] Denita nn Bitartrate 00 325/5) Do 5 MG Oral not exceed Tablet 4gm/day of [[place] acetaminop 5/325] hen. Tessalon No Notes: Memoria Perles 02-16 (Same As: l 01:00: Tessalon Kai Perles) "Do Not Crush" Acetaminoph Yes 1 tab, PO, Memoria en 325 MG / 02-16 Q12H, PRN l Hydrocodone 00:48: Pain, # 30 Kai Bitartrate 00 tab, 0 5 MG Oral Refill(s) Tablet [[place] 5/325] Alprazolam Yes 0.25 mg = Me [...] Ed bandar 02-15 RT l 23:03: DOCUMENTAT [place] ION (Same as:Xopenex ) Non-Formul tamara Acetaminoph No Notes: Do M emoria en 325 MG / 02-15 not exceed l Hydrocodone 23:03: 4gm/day of Kai Bitartrate 00 acetaminop 10 MG Oral hen. Tablet (Same as: [[place] 10/325] 325/10) Albuterol No Notes: Memori a 0.833 MG/ML 02-15 (Same as: l / 20:51: Duoneb) Kai Ipratropium 00 [place] 0.167 MG/ML Inhalant Solution [DuoNeb] Aspirin No Notes: Memoria 02-15 Take with l 20:00: food. [place] 00 tramadol Yes 100 mg = 2 Mem oria hydrochlori 02-09 tab, PO, l de 50 MG 21:05: Q6H, PRN Denita nn Oral Tablet 00 pain, X 3 [Ultram] day, # 20 tab, 0 Refill(s) Tylenol No Notes: Do Memor ia 02-09 not exceed l 20:47: 4 gm/day. [place] (Same as: Tylenol) Sodium No 1,000 mL, Memori a Chloride 01-23 1,000 l 0.154 19:39: ml/hr, Kai MEQ/ML 00 Infuse Injectable Over: 1 Solution hr, Route: IV, 1,000, Drug form: INJ, ONCE, Priority: STAT, Dosing Weight 104.545 kg, Start date: 01/23/15 14:39:00, Duration: 1 doses or times, Stop date: 01/23/15 14:39:00 Saline No Notes: Memoria Flush 0.9% 01-23 preservati l 19:39: ve free. [place] Vital Signs Vital Name Observation Time Observation Value Comments Source Systolic blood 2020-01-02 14:29:00 147 mm[Hg] [facility] Diastolic blood 2020-01-02 14:29:00 79 mm[Hg] [facility] Heart rate 2020-01-02 14:29:00 91 /min [facility] Respiratory rate 2020-01-02 14:29:00 18 /min [facility] Oxygen saturation in 2020-01-02 14:29:00 95 /min [facility] - Arterial blood by Medical Ce [facility]ter Pulse oximetry Body weight 2020-01-02 06:36:00 85.276 kg [facility] BMI 2020-01-02 06:36:00 24.80 kg/m2 [facility] Body temperature 2020-01-02 06:34:[address] [facility] Systolic (mm Hg) 2016-04-05 18:57:00 Ed rial Kai Diastolic (mm Hg) 2016-04-05 18:57:00 Mem orial Kai Respitory Rate 2016-04-05 18:57:00 Memori al Kai Heart Rate 2016-04-05 18:57:00 [facility] [place] Systolic (mm Hg) 2016-04-05 18:27:00 Ed rial Kai Diastolic (mm Hg) 2016-04-05 18:27:00 Mem orial [place] Respitory Rate 2016-04-05 18:27:00 Memori al Kai Heart Rate 2016-04-05 18:27:00 [facility] [place] Respitory Rate 2016-04-05 17:57:00 Memori al Kai Heart Rate 2016-04-05 17:57:00 [facility] [place] Systolic (mm Hg) 2016-04-05 17:57:00 Ed rial Kai Diastolic (mm Hg) 2016-04-05 17:57:00 Mem orial [place] Temperature Oral (F) 2016-04-05 17:35:00 97.7 F [facility] [place] Temperature Oral (F) 2016-04-05 17:27:00 97.7 F [facility] [place] Temperature Oral (F) 2016-04-05 16:22:00 98.2 F [facility] [place] Weight 2016-04-05 13:20:00 [facility] [place] BMI Calculated 2016-04-05 13:20:00 Memori al [place] Height 2016-04-05 13:20:00 185 cm [facility] [place] Respitory Rate 2016-03-14 11:00:00 Memori al [place] Systolic (mm Hg) 2016-03-14 11:00:00 Ed rial [place] Diastolic (mm Hg) 2016-03-14 11:00:00 Mem orial [place] Systolic (mm Hg) 2016-03-14 10:00:00 Ed rial [place] Diastolic (mm Hg) 2016-03-14 10:00:00 Mem orial [place] Respitory Rate 2016-03-14 10:00:00 Memori al [place] Temperature Oral (F) 2016-03-14 09:00:00 98.8 F [facility] [place] Respitory Rate 2016-03-14 09:00:00 Memori al [place] Systolic (mm Hg) 2016-03-14 09:00:00 Ed rial Kai Diastolic (mm Hg) 2016-03-14 09:00:00 Mem orial [place] Temperature Oral (F) 2016-03-14 05:00:00 98.7 F [facility] [place] Heart Rate 2016-03-14 03:48:00 [facility] [place] Heart Rate 2016-03-13 23:42:00 [facility] [place] BMI Calculated 2016-03-13 23:42:00 Memori al [place] Weight 2016-03-13 23:42:00 [facility] [place] Temperature Oral (F) 2016-03-13 23:42:00 98.6 F [facility] [place] Height 2016-03-13 23:42:00 185.42 cm [facility] [place] Heart Rate 2016-02-18 19:19:00 [facility] [place] Temperature Oral (F) 2016-02-18 19:19:00 98.8 F [facility] [place] Respitory Rate 2016-02-18 19:19:00 Memori al [place] Systolic (mm Hg) 2016-02-18 19:19:00 Ed rial [place] Diastolic (mm Hg) 2016-02-18 19:19:00 Mem orial [place] Temperature Oral (F) 2016-02-18 15:28:00 98.3 F [facility] [place] Heart Rate 2016-02-18 15:28:00 [facility] [place] Systolic (mm Hg) 2016-02-18 15:28:00 Ed rial [place] Diastolic (mm Hg) 2016-02-18 15:28:00 Mem orial [place] Respitory Rate 2016-02-18 15:28:00 Memori al [place] Temperature Oral (F) 2016-02-18 12:40:00 98.2 F [facility] [place] Heart Rate 2016-02-18 12:40:00 [facility] [place] Systolic (mm Hg) 2016-02-18 12:40:00 Ed rial [place] Diastolic (mm Hg) 2016-02-18 12:40:00 Mem orial [place] Respitory Rate 2016-02-18 12:40:00 Memori al [place] Weight 2016-02-08 11:10:00 [facility] [place] BMI Calculated 2016-02-08 10:24:00 Memori al [place] Weight 2016-02-08 10:24:00 [facility] [place] Height 2016-02-08 10:24:00 185.42 cm [facility] [place] Weight 2016-02-01 04:41:00 [facility] [place] BMI Calculated 2016-02-01 04:41:00 Memori al [place] Height 2016-02-01 04:41:00 185.42 cm [facility] [place] Height 2016-01-31 19:21:00 185.42 cm [facility] [place] BMI Calculated 2016-01-31 19:21:00 Memori al [place] Respitory Rate 2015-02-16 18:18:00 Memori al [place] Temperature Oral (F) 2015-02-16 17:50:00 98.0 F [facility] [place] Respitory Rate 2015-02-16 17:50:00 Memori al Kai Heart Rate 2015-02-16 17:50:00 [facility] [place] Systolic (mm Hg) 2015-02-16 17:50:00 Ed rial Kai Diastolic (mm Hg) 2015-02-16 17:50:00 Mem orial [place] Temperature Oral (F) 2015-02-16 12:35:00 98.2 F [facility] [place] Heart Rate 2015-02-16 12:35:00 [facility] [place] Systolic (mm Hg) 2015-02-16 12:35:00 Ed rial [place] Diastolic (mm Hg) 2015-02-16 12:35:00 Mem orial Kai Respitory Rate 2015-02-16 12:35:00 Memori al [place] Temperature Oral (F) 2015-02-16 09:00:00 97.5 F [facility] [place] Systolic (mm Hg) 2015-02-16 09:00:00 Ed rial [place] Diastolic (mm Hg) 2015-02-16 09:00:00 Mem orial [place] Heart Rate 2015-02-16 09:00:00 [facility] [place] Height 2015-02-16 00:50:00 185.42 cm [facility] [place] BMI Calculated 2015-02-16 00:50:00 Memori al [place] Weight 2015-02-16 00:50:00 [facility] [place] Weight 2015-02-15 17:48:00 [facility] [place] BMI Calculated 2015-02-15 17:48:00 Memori al [place] Height 2015-02-15 17:48:00 185.42 cm [facility] [place] Temperature Oral (F) 2015-02-09 21:12:00 98.2 F [facility] [place] Heart Rate 2015-02-09 21:12:00 [facility] [place] Respitory Rate 2015-02-09 21:12:00 Memori al [place] Systolic (mm Hg) 2015-02-09 21:12:00 Ed rial [place] Diastolic (mm Hg) 2015-02-09 21:12:00 Mem orial Kai BMI Calculated 2015-02-09 20:27:00 Memori al [place] Weight 2015-02-09 20:27:00 [facility] [place] Height 2015-02-09 20:27:00 185.42 cm [facility] [place] Systolic (mm Hg) 2015-02-09 20:27:00 Ed rial Kai Diastolic (mm Hg) 2015-02-09 20:27:00 Mem orial [place] Heart Rate 2015-02-09 20:27:00 [facility] [place] Respitory Rate 2015-02-09 20:27:00 Memori al [place] Systolic (mm Hg) 2015-01-23 23:00:00 Ed rial [place] Diastolic (mm Hg) 2015-01-23 23:00:00 Mem orial [place] Systolic (mm Hg) 2015-01-23 22:00:00 Ed rial [place] Diastolic (mm Hg) 2015-01-23 22:00:00 Mem orial [place] Systolic (mm Hg) 2015-01-23 21:00:00 Ed rial Kai Diastolic (mm Hg) 2015-01-23 21:00:00 Mem orial [place] Respitory Rate 2015-01-23 19:15:00 Memori al [place] Weight 2015-01-23 18:26:00 [facility] [place] Height 2015-01-23 18:26:00 185.42 cm [facility] BMI Calculated 2015-01-23 18:26:00 Memori al [place] Respitory Rate 2015-01-23 18:26:00 Memori al [place] Heart Rate 2015-01-23 18:26:00 [facility] [place] Temperature Oral (F) 2015-01-23 18:26:00 98.5 F [facility] Procedures Procedure Date / Time Performing Clinician Source Performed CT UPPER EXTREMITY 2020-01-02 14:15:[address] [facility] - WITHOUT IV CONTRAST [facility] XR SHOULDER LEFT COMPLETE 2020-01-02 09:56:[address] [facility] - MIN 2 VIEWS [facility] PT/APTT 2020-01-02 08:49:[address] [facility] SARS-COV2/RT-PCR ([facility] & 2020-01-02 08:22:[address] [facility] - REF LABS) [facility] CBC W/PLT COUNT & AUTO 2020-01-02 08:18:[address] [facility] - DIFFERENTIAL [facility] COMPREHENSIVE METABOLIC 2020-01-02 08:18:00 Rio Freitas [facility] - PANEL [facility] XR SHOULDER LEFT COMPLETE 2020-01-02 07:18:[address] [facility] - MIN 2 [facility] PROCEDURAL SEDATION 2020-01-02 07:10:[address] [facility] Amputation of [facility] toe<sup>1</sup> Blood transfusion [facility] Plan of Care Planned Activity Planned Date [...] s - Test 00:00:00 (procedure) [code = [facility] 46669492] Future Scheduled [address] [facility] - Test 00:00:00 malignant neoplasm Medical C enter of colon (procedure) [code = 271205420] Encounters Start End Encounter Admission Attending Care Care Encounter Source Date/Time Date/Time Type Type Clinicians Facility Department ID 2016-04-05 2016-04-05 Outpatient SAVI Pierce [facility] [id number] 08:00:00 23:59:00 Abbmarek 08 Jeff 2016-03-13 2016-03-14 Outpatient Emily YUMI [facility] [id number] 18:41:00 10:51:00 Blanche Okeefe 2016-01-31 2016-02-18 Outpatient Kari YUMI [facility] [id number] 13:47:00 15:15:00 Abbmarek 06 Jeff 2015-02-15 2015-02-16 Outpatient Brian [facility] [id number] 12:38:00 16:20:00 Juanwilly Mckeon 2015-02-09 2015-02-09 Outpatient Az Warner [facility] [id number] 15:20:00 16:13:00 Sundar 04 2015-01-23 2015-01-23 Outpatient Lisandra [facility] [id number] 13:23:00 18:13:00 Joanadodie Cope 03 2013-10-31 2013-11-29 Outpatient Rosibel [facility] [id number] 08:00:00 23:59:00 Nabeel Hermes 00 Results Test Description Test Time Test Comments Results Result [facility] e Comments CT, EXTREMITY, 2020-01-02 FINAL REPORT UPPER, WITHOUT 15:45:00 PATIENT ID: CONTRAST, LEFT [id number] CT of the left shoulder without contrast [...] Bustillo Verified Date/Time: 01/02/2020 15:45:14 Reading Location: [facility] Radiology Reading Room upper 2020-01-02 Interface, [...] MDReport Verified Date/Time: 01/02/2020 15:45:14 Reading Location: [facility] Radiology Reading Room -CoV2/RT-PCR (Asymptomatic ONLY) 2020-01-02 13:11:00 Test Item Value Reference Range Interpretation Comme nts SARS-COV2/RT-PCR (test code = Negative Not Detected, 31436-7) Negative, See external report for linked test SARS-COV-[address] [facility] (test code = 62893-6) DELLA (test code = DELLA) Negative result [...] of the Act. Fact Sheet for Healthcare Providers:https://www.AdScore. com/sites/default/files/produ ct/documents/Fact_Sheet_HC_Pr otumhsx_Uxnq_YTCO-LgK-7.pdf Fact Sheet for Healthcare Patients:https://www.AdScore.c om/sites/default/files/produc t/documents/Fact_Sheet_Desire diasjt_Kucu_VXCN-YlD-5.pdf Performing Laboratory:[facility] [place] [address] [facility]2020-01-02 13:11:00 Test Item Value Reference Range Interpretation Comments SARS-COV2/RT-PCR (test Negative Not Detected, Negative, code = 2016609) See external report for linked test SARS-COV-[address] [facility] (test code = 2241260) Negative result for this test determines that [...] 564(g) of the Act.Fact Sheet for Healthcare Providers:https://www.AdScore.Synapticon/sites/default/files/product/documents/Fact_Sheladonna q_JX_Ykhtsbhou_Kmwt_IWRZ-NhW-8.pdfFact Sheet for Healthcare Patients:https://www.CEL-SCI/sites/default/files/product/ documents/Huok_Ulqps_Fyposziw_Oubc_WIML-FtL-4.pdfPerforming Laboratory:[facility], [place] [address]EYP, SHOULDER, COMPLETE (MIN 2 VIEWS), [id number] 10:34:00Reason for exam:->ARM INJURYShould this be performed at the bedside?->YesFINAL REPORT RAD, SHOULDER, COMPLETE (MIN 2 VIEWS), LEFT INDICATION: ARM INJURY COMPARISON: 2 hours prior TECHNIQUE: Single frontal view of the left shoulder. IMPRESSION: Redemonstration of chronic changes in the anteriorly displaced humeral head. Glenoid rim appears preserved.Acromioclavicular joint remains intact. Signed: JR Moreira Robert MDReport Verified Date/Time: 01/02/2020 10:34:05 Reading Location: [facility] Radiology Reading Room XR shoulder complete 2 views min [id number] 10:34:00Interface, External Ris In - 01/02/2020 10:36 AM CDTFINAL REPORT RAD, SHOULDER, COMPLETE (MIN 2 VIEWS), LEFT INDICATION: ARM INJURY COMPARISON: 2 hours prior TECHNIQUE: Single frontal view of the left shoulder. IMPRESSION: Redemonstration of chronic changes in the anteriorly displaced humeral head. Glenoid rim appears preserved. Acromioclavicular joint remains intact. Signed: Teressa hernandez JR, Robert MDReport Verified Date/Time: 01/02/2020 10:34:05 Reading Location: [facility] Radiology Reading Room [facility] PT/[id number] 09:03:00 Test Item Value Reference Interpretation Comments Range Protime (test code = 13.4 See_Comment [Autom ated 5902-2) message] The system which generated this result transmitted reference range : 11.9 - 14.2 seconds. The reference range was not used to interpret this result as normal/abnormal . INR (test code = 1.1 See_Comment [Automated 0301-6) message] The system which generated this result transmitted reference range : <=5.9. The reference range was not used to interpret this result as normal/abnormal . PTT (test code = 30.8 See_Comment [Automated 62490-7) message] The system which generated this result [...] valves. Lab Interpretation Normal (test code = 10070-4) [id number] 09:03:00 Test Item Value Reference Range Interpretation [...] = 4.2 g/dL 3.5-5 [place] slightly 24323-8) hemolyzed Alkaline Phosphatase 78 U/L 40-150 (test [...] Calcium (test code = 9.3 mg/dL 8.4-10.2 68695-4) AST (test code = 25 U/L 5-34 Specimen sl ightly 1920-8) hemolyzed ALT (test code = 16 U/L 6-55 Specimen sl ightly 1742-6) hemolyzed EGFR (test code = 96 mL/min/1.73 [place] [address]-0) NOT ACCURATE CREATININE CLEARANCE IN PREDICTING GLOMERULAR FILTRATION RATE . ESTIMATED GFR I S NOT APPLICABLE FOR DIALYSIS PATIEN TS. DELLA (test code = DELLA) Tufter Operator ID - EDASI Lab Interpretation Abnormal (test code = 89315-0) [facility] Center[facility]PRE[facility] METABOL[facility] [id number] 08:46:00 Test Item Value Reference Range Interpretation [...] S NOT APPLICABLE FOR DIALYSIS PATIEN TS. Tufter Operator ID - EDASICBC with platelet count + automated [id number] 08:30:00 Test Item Value Reference Range Interpretation Comments WBC (test code = 6690-2) 7.5 See_Comment [A utomated message] The system GetOutfitted generated this result transmitted ref erence range: 3.5 - 10 .5 K/L. The refe rence range was not u sed to interpret this result as normal/abnor mal. RBC (test code = 789-8) 4.74 See_Comment [Au tomated message] The system GetOutfitted generated this result transmitted ref erence range: 4.63 - 6 .08 M/L. The refe rence range was not u sed to interpret this result as normal/abnor mal. MCHC (test code = 786-4) 34.0 See_Comment [A utomated message] The system GetOutfitted generated this result transmitted ref erence range: [...] See_Comment [Aut omated message] 777-3) The system GetOutfitted generated this result transmitted ref erence range: 150 - 45 0 K/CU MM. The referen ce range was not u sed to interpret this result as normal/abnor mal. MPV (test code = 8.8 fL 9.4-12.4 L 61605-5) nRBC (test code = 413) 0 See_Comment [Aut omated message] The system GetOutfitted generated this result transmitted ref erence range: [...] H [Aut omated message] 670) The system GetOutfitted generated this result transmitted ref erence range: 1.78 - 5 .38 K/L. The refe rence range was not u sed to interpret this result as normal/abnor mal. # Lymphs (test code = 1.32 See_Comment [Auto mated message] 414) The system GetOutfitted generated this result transmitted ref erence range: 1.32 - 3 .57 K/L. The refe rence range was not u sed to interpret this result as normal/abnor mal. # Monos (test code = 0.41 See_Comment [Autom ated message] 415) The system GetOutfitted generated this result transmitted ref erence range: 0.30 - 0 .82 K/L. The refe rence range was not u sed to interpret this result as normal/abnor mal. # Eos (test code = 416) 0.19 See_Comment [Au tomated message] The system GetOutfitted generated this result transmitted ref erence range: 0.04 - 0 .54 K/L. The refe rence range was not u sed to interpret this result as normal/abnor mal. # Baso (test code = 417) 0.06 See_Comment [A utomated message] The system GetOutfitted generated this result transmitted ref erence range: 0.01 - 0 .08 K/L. The refe rence range was not u sed to interpret this result as normal/abnor mal. Immature 1 % 0-1 Granulocytes-Relative (test code = 2801) Lab Interpretation (test Abnormal code = 77822-6) [facility] W/PLT COUNT & AUTO [id number] 08:30:00 Test Item Value Reference Range Interpretation [...] 2801) RAD, SHOULDER, COMPLETE (MIN 2 VIEWS), [id number] 07:45:00Reason for exam:- >ARM INJURYFINAL REPORT RAD, [...] MDReport Verified Date/Time: 01/02/2020 07:45:57 Reading Location: [facility] Radiology Reading Room Electronic ally signed by: [...] cannula Sedation: Propofol and ketamine Intra-procedure monitoring: monitoring tech, blood pressure monitoring, continuous capnometry and continuous pulse oximetry Intra-procedure events: none Sedation end time: 01/02/2020 10:05 AMPost Sedation Evaluation: Respiration: airway patentThe following have been reviewed and found to be within acceptable parameters: RR, HR, BP and pulse ox Pain Scale: 5/10 Nausea/Vomiting: noHydration status: wnlTemperature within expected parameters :Temperature within defined limits @[facility]EDMULT[facility]LEVITALS@ [facility] CenterBLOOD [id number] 02:00:00 Test Item Value Reference Range Interpretation Comments CULTURE (BEAKER) (test No growth in 5 days code = 1095) BLOOD [id number] 20:01:00 Test Item Value Reference Range Interpretation Comments CULTURE (BEAKER) (test No growth in 5 days code = 1095) EEG AWAKE AND [id number] 14:49:00Reason for exam:->seizuresDate(s) of EE10/14/18DATE OF REPORT: 10/14/18ACC: [id number] Number: [id number] time: 13:36Stop time: 13:57ICD-10: R56.9 Unspecified ConvulsionsCPT Code: 49800 EEG: awake and drowsy <40 min HISTORY: [...] Fellow Anjali Floyd MDNeurophysiology/Epilepsy Attending [facility] [id number] 07:41:00 Test Item Value Reference Range Interpretation [...] PATIEN TS. CBC W/PLT COUNT & AUTO [id number] 05:30:00 Test Item Value Reference Range Interpretation [...] (test code = 2801) VITAMIN B12 AND [id number] 19:46:00 Test Item Value Reference Range Interpretation Comments VITAMIN B12 (BEAKER) (test code = 683 pg/mL 213-816 774) FOLATE (BEAKER) (test code = 362) > ng/mL >=7.0 [id number] 17:59:00 Test Item Value Reference Range Interpretation Comments PHOSPHORUS (BEAKER) (test code = 4.0 mg/dL 2.3-4.7 604) [id number] 17:59:00 Test Item Value Reference Range Interpretation Comments MAGNESIUM (BEAKER) (test code = 2.5 mg/dL 1.6-2.6 627) CT, BRAIN, WITHOUT [id number] 16:58:00FINAL REPORT CT head without contrast. Reason [...] MDReport Verified Date/Time: 10/12/2018 16:58:56 Reading Location: [facility] C013V Neuro Reading Room ALYSIS W/ [id number] 16:25:00 Test Item Value Reference Range Interpretation [...] 516) SOURCE(BEAKER) (test code = Urine, Voided 1050) BLOOD [id number] 10:00:00 Test Item Value Reference Range Interpretation Comments CULTURE (BEAKER) (test No growth in 5 days code = 1095) STOOL CULTURE + SHIGA [id number] 09:59:00 Test Item Value Reference Range Interpretation Comments CULTURE (BEAKER) No Salmonella, Shigella (test code = 1095) or Campylobacter isolated STOOL PATH [id number] 09:01:00 Test Item Value Reference Range Interpretation Comments PATHOGEN EXAM CHARGED (BEAKER) (test Done code = 2381) BASIC METABOLIC [id number] 06:59:00 Test Item Value Reference Range Interpretation [...] APPLICABLE FOR DIALYSIS PATIEN TS. SHIGA TOXIN [id number] 15:48:00 Test Item Value Reference Range Interpretation Comments SHIGA TOXIN 1 (BEAKER) (test Not detected Not detected code = 2177) SHIGA TOXIN 2 (BEAKER) (test Not detected Not detected code = 2179) CLOSTRIDIUM DIFFICILE TOXIN [id number] 15:13:00 Test Item Value Reference Range Interpretation [...] a positive result is not recommended.BLOOD GAS, [id number] 11:03:00 Test Item Value Reference Range Interpretation [...] code = 1819) 21.0 % BASIC METABOLIC [id number] 05:14:00 Test Item Value Reference Range Interpretation [...] NOT APPLICABLE FOR DIALYSIS PATIEN TS. PTH, [id number] 05:03:00 Test Item Value Reference Range Interpretation Comments PARATHYROID HORMONE INTACT 41.8 pg/mL 8.5-72.5 (BEAKER) (test code = 577) BASIC METABOLIC [id number] 07:10:00 Test Item Value Reference Range Interpretation [...] APPLICABLE FOR DIALYSIS PATIEN TS. SODIUM, RANDOM [id number] 06:58:00 Test Item Value Reference Range Interpretation Comments SODIUM URINE (BEAKER) (test code = 65 meq/L 243) Reference Range: No NormalsPROTHROMBIN TIME/[id number] 06:47:00 Test Item Value Reference Range Interpretation Comments PROTIME (BEAKER) (test code = 14.5 seconds 11.7-14.7 759) INR (BEAKER) (test code = 370) 1.1 <=5.9 RECOMMENDED COUMADIN/WARFARIN INR THERAPY RANGESSTANDARD DOSE: 2.0 - 3.0 Includes: PROPHYLAXIS forvenous thrombosis, systemic embolization; TREATMENT for venous thrombosis and/or pulmonary embolus.HIGH RISK: Target INR is 2.5-3.5 for patients with mechanical heart valves.RAPID DRUG SCREEN, [id number] 15:43:00 Test Item Value Reference Range Interpretation [...] situations. Chain of custody not maintained. Some zrmr-gfc-dnbzijv medications, as well as adulterants, may cause inaccurate results. Clinical correlation should be applied. A more comprehensive drug screen or confirmation of a detected drug may be performed upon request. URINE [id number] 14:33:00 Test Item Value Reference Range Interpretation Comments CULTURE (BEAKER) (test code = 1095) No growth BASIC METABOLIC [id number] 08:09:00 Test Item Value Reference Range Interpretation [...] PATIEN TS. CBC W/PLT COUNT & AUTO [id number] 06:38:00 Test Item Value Reference Range Interpretation [...] (BEAKER) (test code = 2801) U/S, RENAL, [id number] 22:34:00Reason for exam:->acute kidney injury FINAL REPORT [...] Liana Jackeport Verified Date/Time: 04/17/2017 22:34:25 Reading Location:[address] Reading Room MR, BRAIN, WITHOUT [id number] 19:18:00Reason for exam:->Stroke evaluationFINAL REPORT MRI Brain [...] Charlene ified Date/Time: 04/17/2017 19:18:34 Reading Location: [facility] Radiology Reading Room EEG MONITORING WITH VIDEO RECORDING EACH 24 [id number] 18:01:00DATE OF TEST: 04/17/2017 DATE OF REPORT 04/17/2017 ACC: [id number] EE Start time: 16:42 Stop time: 18:44 ICD-10: R56.9 CPT Code: 95581 HISTORY: 51 y/o woman with history of [...] Gina Davis MD Neurophysiology Attending ALYSIS W/ [id number] 11:57:00 Test Item Value Reference Range Interpretation [...] 1583) SOURCE(BEAKER) (test code = Urine, Cooper 8324) EOSINOPHIL SMEAR, [id number] 11:56:00 Test Item Value Reference Range Interpretation Comments EOSINOPHIL SMEAR, URINE (BEAKER) No EOS seen No EOS seen (test code = 1851) CREATININE, RANDOM [id number] 11:24:00 Test Item Value Reference Range Interpretation Comments CREATININE URINE (BEAKER) (test 69.7 mg/dL code = 375) Reference Range: No NormalsSODIUM, RANDOM [id number] 11:24:00 Test Item Value Reference Range Interpretation Comments SODIUM URINE (BEAKER) (test code = 58 meq/L 243) Reference Range: No NormalsUREA NITROGEN, RANDOM [id number] 11:24:00 Test Item Value Reference Range Interpretation Comments UREA NITROGEN URINE (BEAKER) (test 172 mg/dL code = 538) Reference Range: No NormalsCREATINE KINASE (CK)2017-04-17 11:06:00 Test Item Value Reference Range Interpretation Comments CREATINE KINASE TOTAL (BEAKER) (test 136 U/L 29-200 code = 380) BASIC METABOLIC [id number] 04:53:00 Test Item Value Reference Range Interpretation [...] PATIEN TS. CBC W/PLT COUNT & AUTO [id number] 04:19:00 Test Item Value Reference Range Interpretation [...] EEG MONITORING WITH VIDEO RECORDING EACH 24 [id number] 17:57:00DATE OF TEST: 04/16/2017DATE OF REPORT 04/16/2017 ACC: [id number]: 17-1987Start time: 08:42 Stop time: 16:42ICD-10: R56.9CPT Code: 46316LCMXJXX: 51 y/o woman with history of epilepsy [...] report.Vicky Hassan MDEpilepsy Attending EEG AWAKE/ASLEEP AND [id number] 13:27:00Reason for exam:->status epilepticusDATE OF TEST: 04/16/2017DATE OF REPORT 04/16/2017 ACC: [id number] EEStart time: 08:21 Stop time: 08:42ICD-10: R56.9CPT Code: 12749XGNQSVI: 51 y/o woman with history of epilepsy [...] this report.Vicky Hassan MDEpilepsy Attending HEPATIC FUNCTION [id number] 12:59:00 Test Item Value Reference Range Interpretation [...] 347) hemolyzed RAD, CHEST, 1 VIEW, NON [id number] 09:16:00Reason for exam:- >intubatedShould this be performed [...] 09:16:32 Reading Location: [facility] Radiology Reading Room VITAMIN [id number] 07:31:00 Test Item Value Reference Range Interpretation Comments VITAMIN B12 (BEAKER) (test code = 450 pg/mL 213816 774) FOLATE, [id number] 07:31:00 Test Item Value Reference Range Interpretation Comments FOLATE (BEAKER) (test code = 362) 8.0 ng/mL >=7.0 URINALYSIS W/ [id number] 07:09:00 Test Item Value Reference Range Interpretation [...] = 514) SOURCE(BEAKER) (test code = 2795) [id number] 05:59:00 Test Item Value Reference Range Interpretation Comments MAGNESIUM (BEAKER) 3.0 mg/dL 1.6-2.6 H Specimen moderately (test code = 627) hemolyzed [id number] 05:59:00 Test Item Value Reference Range Interpretation Comments PHOSPHORUS (BEAKER) 3.0 mg/dL 2.3-4.7 Specimen moderately (test code = 604) hemolyzed BASIC METABOLIC [id number] 05:59:00 Test Item Value Reference Range Interpretation [...] NOT APPLICABLE FOR DIALYSIS PATIEN TS. PROTHROMBIN TIME/[id number] 05:33:00 Test Item Value Reference Range Interpretation Comments PROTIME (BEAKER) (test code = 15.7 seconds 11.7-14.7 H 759) INR (BEAKER) (test code = 370) 1.3 <=5.9 RECOMMENDED COUMADIN/WARFARIN INR THERAPY RANGESSTANDARD DOSE: 2.0 - 3.0 Includes: PROPHYLAXIS forvenous thrombosis, systemic embolization; TREATMENT for venous thrombosis and/or pulmonary embolus.HIGH RISK: Target INR is 2.5-3.5 for patients with mechanical heart valves.BLOOD GAS, [id number] 05:31:00 Test Item Value Reference Range Interpretation [...] 60.0 % CBC W/PLT COUNT & AUTO [id number] 05:08:00 Test Item Value Reference Range Interpretation [...] (BEAKER) (test code = 2801) BLOOD BANK [id number] 17:22:00Product available (04/04/16 11:22 AM) [facility] [id number] 17:20:00Negative (04/04/16 11:20 AM) [facility] [id number] 07:08:001[facility] [id number] 07:08:003[facility] [id number] 07:08:00 Negative (03/14/16 2:08 AM)[facility] PYJOT5363-11-12 07:08:005.0 [facility] [id number] 07:08:001.009[facility] [id number] 07:08:00Clear (03/14/16 2:08 AM)[facility] STOOL 2016-03-14 07:08:00Yellow *NA*(03/14/16 2:08 AM)[facility] STOOL 2016-03-14 07:08:00Negative (03/14/16 2:08 AM)[facility] STOOL 2016-03-14 07:08:00Negative (03/14/16 2:08 AM)[facility] STOOL 2016-03-14 07:08:00Negative *NA*(03/14/16 2:08 AM)[facility]annCHEM PANEL 2016-03-14 05:40:000.8[facility]BL[facility] [id number] 02:07:00 Negative (03/13/16 9:07 PM)[facility]annCHEM [id number] 02:07:0043 [facility]annCHEM [id number] 02:07:0021[facility]annCHEM PANEL 2016-03-14 02:07:001.79[facility]annCHEM [id number] 02:07:0095[facility]annCHEM [id number] 02:07:000.3[facility]annCHEM [id number] 02:07:0039[facility]annCHEM [id number] 02:07:0059[facility]annCHEM [id number] 02:07:18633Pfkpwakg HermannCHEM TIHXW9117-11-74 02:07:007.8 [facility]annCHE[facility] [id number] 02:07:002.5[facility]annCHEM PANEL 2016-03-14 02:07:07692Mnliefea HermannCHEM PFJYH1596-17-15 02:07:89370Yelnrwyv HermannCHEM PCIHB0235-36-14 02:07:0021[facility] HermannCHEM RAYWU0604-34-26 02:07:0010.1[facility]annCHEM YURAJ2754-29-89 02:07:003.3[facility]annCHEM [id number] 02:07:000.5[facility]annCHEM XCIJR9164-74-21 02:07:005.3 [facility]annCHEM [id number] 02:07:0012[facility]annCHEM PANEL 2016-03-14 02:07:0015.3[facility] TopmioxTMYZFSSIOK2562-90-01 02:07:007.4[facility] DxgvtlzZYHVAIADDQ6289-21-72 02:07:007.3[facility]orial SfbxjlrUJDJPSAGSO5888-84-75 02:07:0088.5[facility]orial YmtdwblMFSHIHRULL2268-08-81 02:07:003.00[facility] Kai TOUHGCIJQD6267-36-00 02:07:0026.5[facility] GhqaawkVGKRRGWWSF4781-50-96 02:07:00 8.8Memorial QjeepgqKSTQUDPXTN3896-81-47 02:07:0033.1[facility] HermannHEMATOLOGY 2016-03-14 02:07:00 Test Item Value Reference Range Interpretation Comments MCH (test code = MCH) 29.3 pg 27.0-31.0 Memorial ItaeubjFENBNGFNFW7507-46-78 02:07:76471Fefnklwv HermannHEMATOLOGY 2016-03-14 02:07:0015.5[facility] ZeabtmyGIGXVPCRDH1442-27-92 02:07:000.1[facility] QyirbdmNASQZXZWTG8003-79-26 02:07:0014.3[facility]orial BcaofusDYLASUBJGK3989-46-05 02:07:001.9[facility] AkhmkbfVLFSIQVIBQ8494-30-19 02:07:0077.1[facility] [place] ZKANGLDISY4613-55-84 02:07:005.3[facility] MjinymvRMAETGBXCS5781-85-50 02:07:001.4 Memorial OhiclokHGDUPUCXVK0502-30-77 02:07:005.6[facility]annHEMATOLOGY 2016-03-14 02:07:001.0Mem[facility] HkktvudHTHLMPHODZ8672-83-64 02:07:000.4[facility] NyujnkxPFOXGNJPST4899-37-01 02:07:000.1[facility] HermannANEMIA LSZOH0981-85-88 09:04:65011Ylicwdjp HermannANEMIA GPITD9767-84-75 09:04:80641Flfihnal [place] ANEMIA NUVQV4213-86-90 09:04:0022Memorial HermannANEMIA KMOPN8025-93-14 09:04:00 11[facility] HermannCHEM SMCCV4913-79-97 15:50:0057Mem[facility] HermannCHEM PANEL 2016-02-15 15:50:0014.7[facility] HermannCHEM FLBHB6808-41-03 15:50:008.7[facility] HermannCHEM SPNGL1092-61-46 15:50:0024Mem[facility] HermannCHEM EQBJH6025-10-98 15:50:0099Mem[facility] HermannCHEM UIYNM7792-19-41 15:50:003.7[facility] HermannCHEM KRDJH3735-19-14 15:50:0016[facility] HermannCHEM NIYCO0027-86-62 15:50:34365 [facility]annCHEM QOQIS1292-98-47 15:50:92237Hlwqwwye HermannCHEM PANEL 2016-02-15 15:50:001.42[facility] HermannCHEM KXPRN4425-41-71 09:45:0051[facility] HermannCHEM NPHIL2367-92-68 09:45:000.8[facility] HermannCHEM PANVE6093-01-78 09:45:0025[facility] HermannCHEM MHRLW4689-67-51 09:45:0015Mem[facility] HermannCHEM VLQJK8997-61-12 09:45:0062[facility] HermannCHEM NXOSZ9284-29-72 09:45:004.8 [facility]annCHEM RAWNP4421-27-62 09:45:000.5[facility]annCHEM PANEL 2016-02-14 09:45:009.0[facility] HermannCHEM SYGVR0918-55-45 09:45:08985Tcfrgivc HermannCHEM VVNWV5221-25-54 09:45:0024[facility] HermannCHEM VWIDD8650-88-24 09:45:81347Kdinbpqf HermannCHEM XLKXC5206-12-33 09:45:0017[facility] HermannCHEM VPJUX5325-84-66 09:45:004.1[facility] HermannCHEM KTQEV3002-76-97 09:45:0014.1 [facility]annCHEM QQPXO7922-82-42 09:45:002.3[facility] HermannCHEM PANEL 2016-02-14 09:45:007.1[facility] HermannCHEM DDCFX6263-27-66 09:45:001.55[facility] HermannCHEM TKKQY5666-02-06 09:45:59895Wozyxdfy HermannCHEM LQMWF3325-09-56 09:45:0011[facility] BqoqbtwPNUURAWBNP0268-83-89 09:45:007.7[facility] Kai PMKEKSEQSA2548-14-46 09:45:0025.4[facility] BzlfluuUZVOYEPSOE4149-75-42 09:45:00 Test Item Value Reference Range Interpretation Comments MCH (test code = MCH) 32.7 pg 27.0-31.0 [facility] VomqjzhVZEXUDXRML5706-88-98 09:45:0096.6[facility]annHEMATOLOGY 2016-02-14 09:45:67878Vdmzxtlr HdyshmnJOUTHXNPZP3524-09-59 09:45:0014.7[facility] FbvmwqmMQEXKOHUTH2493-61-91 09:45:0033.8[facility] OgxxzbsCXVJGLJRAI2240-39-53 09:45:008.4[facility] IbmcuioBBALRAVUNN0203-22-55 09:45:008.6[facility] ARDQECDOBV3392-00-16 09:45:002.63[facility] EwyaqcuRTGEKPEBIQ4839-91-83 09:45:00 1.5[facility] QxpuqmzWUCJGKFGJS8893-74-41 09:45:000.2[facility] HermannHEMATOLOGY 2016-02-14 09:45:000.8[facility] LxqticeGBXDXEAJXT9765-24-81 09:45:000.1[facility] MuqzvqbAJESJXMHND4889-90-10 09:45:009.9[facility] GrpxykxPHZGLEFIYV2519-55-98 09:45:0017.2[facility] IompsbeREAWVYVAPI6826-76-00 09:45:0069.8[facility] LGALNJMLDT7306-45-84 09:45:002.2[facility] AzczfeuVFKWAIHSZN0947-95-55 09:45:005.9 [facility] ErsswtlMSDSQDSTLC3495-34-77 09:45:000.9[facility] HermannTOXICOLOGY 2016-02-14 09:45:0014.8[facility] HermannCHEM FVPFM9739-73-84 09:54:006.3[facility] HermannCHEM AJMVY3527-02-80 09:54:000.7[facility] HermannCHEM PUMZC5284-59-48 09:54:0012[facility]annCHEM JDBPL9639-37-33 09:54:003.8[facility] HermannCHEM THUYI5040-54-45 09:54:0012[facility]annCHEM DOPSC8903-55-72 09:54:0061 [facility]annCHEM CUFTT4239-14-65 09:54:002.5[facility] HermannCHEM PANEL 2016-02-13 09:54:0026[facility]annCHEM YXWVO8761-77-26 09:54:000.4[facility] HermannCHEM KQLVC7643-41-17 09:54:0013.5[facility] HermannCHEM BJSYA3209-98-05 09:54:0057[facility] HermannCHEM DCAYV4080-92-90 09:54:0027[facility]annCHEM PCJIJ6498-92-88 09:54:008.7[facility] HermannCHEM PYSLX1093-03-30 09:54:93823 [facility]annCHEM XKNDJ3155-99-38 09:54:004.5[facility] HermannCHEM PANEL 2016-02-13 09:54:001.42[facility] HermannCHEM QCZRU7141-11-77 09:54:84329Cpsfuhkf HermannCHEM HLDJF1937-47-44 09:54:50264Vjzcxqdb HermannCHEM LBHZQ8733-70-63 09:54:0017[facility] NcwzbpfKTVKJNDVJY5386-74-32 09:54:009.3[facility] HermannCHEM RYKWX6590-66-35 17:04:004.9[facility] HermannCHEM IQOFF8249-14-99 17:04:001.8 [facility] WhburiaIMQLLXCUJA7025-16-37 17:04:0070.5[facility] HermannHEMATOLOGY 2016-02-12 17:04:0018.0[facility] JidnlmkFOQJMPKGGK3539-11-98 17:04:009.7[facility] FxidkizNJJFVQPCLE6559-03-56 17:04:006.4[facility] HwtupbyPFESLCNHJW3753-51-22 17:04:001.6[facility] UabjkigVZQABYJRLV7461-78-82 17:04:000.5[facility] RGQRXSICHU4539-28-92 17:04:001.3[facility] KvbqdigXQAEOQMQVU1198-62-78 17:04:000.9 [facility] LrfiwvnEOETDDBOFX2989-43-73 17:04:000.1[facility] HermannHEMATOLOGY 2016-02-12 17:04:65477Qzcoxppy NonyfctJZAQOBUIMA1729-91-64 17:04:006.9[facility] RuztdlkLKWVMZQSEP2927-37-25 17:04:0033.9[facility] NgvzugaDBUBSCANLQ2399-86-43 17:04:0015.1[facility] WmtktaeKEWZHXZYWL9320-46-05 17:04:002.69[facility] DLNBKXFGSL3352-64-02 17:04:0096.5[facility] BiqvubjLDWNXUQCIH4070-49-63 17:04:00 9.1[facility] XsnzmihFPWUFMZSER0162-58-15 17:04:008.8[facility] HermannHEMATOLOGY 2016-02-12 17:04:0026.0[facility] PbfyltgQTHNSBKOTC2346-33-78 17:04:00 Test Item Value Reference Range Interpretation Comments MCH (test code = MCH) 32.7 pg 27.0-31.0 [facility] JovtvbrEPTURHKSYW8553-16-01 08:18:007.7[facility] HermannHEMATOLOGY 2016-02-12 08:18:001.5[facility] YdrprelWQPOENPSFL6195-76-89 08:18:000.2[facility] JalxinuTSFEQAVWWZ5213-70-64 08:18:000.2[facility] JbfcfivYZNHVDKUPP1655-58-32 08:18:001.2[facility] TrthgdiJHGUBYMNNG2329-87-34 08:18:0069.4[facility] TWHQHHJAJY0383-96-98 08:18:0010.5[facility] KerosnlUTUJMDAJUO3139-03-42 08:18:00 1.6[facility] JllgmocIZBKJCANZH8392-69-10 08:18:001.9[facility] HermannHEMATOLOGY 2016-02-12 08:18:0017.0[facility] HerszrmUMCPKHHEDS4529-92-26 08:18:0028.9[facility] PkqgqlgSRTDNOXKST2192-57-78 08:18:0033.6[facility] ZnfwwutNGSIYONRMM7472-95-08 08:18:0014.6[facility] NefzdysSHSGJQNEYI4985-59-53 08:18:0096.6[facility] RQPCORPGCF1034-24-04 08:18:00 Test Item Value Reference Range Interpretation Comments MCH (test code = MCH) 32.4 pg 27.0-31.0 [facility] SqhxrteNKOUBTDZHT1595-02-07 08:18:009.7[facility] HermannHEMATOLOGY 2016-02-12 08:18:0011.1[facility] RkruiiuONEZJYJTIP4971-22-71 08:18:002.99[facility] NyxlybuUTAKAFUXIY5184-81-54 08:18:74483Ghxdfhkb MquobihDWYEVCMRRO4683-76-68 08:18:007.4[facility] ItguyloTGBVDFYRFY3868-81-35 09:02:0010.9[facility] JFNPSPRYWA5050-06-48 08:14:000.1[facility] AnaihilUWNXNNVOAG7901-88-42 08:14:00 14.1[facility] VulxxpgIBJVIWJEHT2168-89-52 18:46:00>100[facility] HermannBLOOD BANK VXKPWHY3962-62-35 10:38:00Negative (02/08/16 5:38 AM)[facility] HermannCHEM FCMFU2175-75-87 10:38:000.11[facility]annUR[facility] AND AFWUG8890-09-20 05:36:00 Negative (02/05/16 12:36 AM)[facility] BFYXP4180-54-80 05:36:001 [facility] KCUCV5772-41-90 05:36:00Negative (02/05/16 12:36 AM) [facility] OGCNW3565-02-53 05:36:00Negative *NA*(02/05/16 12:36 AM)[facility] QACPR5082-92-42 05:36:00Negative (02/05/16 12:36 AM) [facility] FOQJB4749-10-12 05:36:00Clear (02/05/16 12:36 AM) [facility] FCRFI2487-05-36 05:36:006.0[facility] VHOZS1635-31-91 05:36:00Light Yellow *NA*(02/05/16 12:36 AM)[facility] WGRYX6995-11-45 05:36:001.006[facility] CHABC8536-86-41 21:31:00Negative (02/01/16 4:31 PM)[facility] FAXRL0959-66-16 21:31:00Negative (02/01/16 4:31 PM)[facility] YPNTE6545-39-83 21:31:00Negative (02/01/16 4:31 PM)[facility] YIQNU6473-63-08 21:31:001[facility] AZVWK7302-01-70 21:31:003[facility]INE AND FYLSC4768-04-43 21:31:005.5[facility] AND CWTVE4728-37-23 21:31:00Negative *NA*(02/01/16 4:31 PM)[facility] BPBKU6724-46-16 21:31:00Yellow *NA*(02/01/16 4:31 PM)[facility] YBNOV6651-12-23 21:31:00Clear (02/01/16 4:31 PM)[facility] BJJRE0743-83-40 21:31:00 1.007[facility]annUR[facility] OGIJ1143-47-62 21:31:0041[facility]UR[facility] CHEM 2016-02-01 21:31:0070.40[facility]annURINE ELEZ9015-85-81 21:31:0038[facility] HermannCARDIAC KCERFIC4209-26-44 20:44:00<0.02[facility] HermannCHEM PANEL 2016-01-31 20:44:000.13[facility] HermannCHEM FLHEW1203-65-93 20:44:001.7[facility] HermannCHEM CAYTZ3846-82-26 20:44:000.4[facility] HermannCHEM CUXOE7790-99-58 20:44:007.7[facility] HermannCHEM HUSYE8260-29-94 20:44:0019[facility] HermannCHEM SBUNL9614-28-83 20:44:0023[facility] HermannCHEM ZXRIC0888-11-50 20:44:0058 [facility] HermannCHEM GMHDU2985-05-43 20:44:002.8[facility] HermannCHEM PANEL 2016-01-31 20:44:000.6[facility] HermannCHEM TYLBB9237-93-93 20:44:004.9[facility] HermannCHEM LESLD5813-35-43 20:44:0015[facility] WvhmuatKNHYKAWBBG3519-45-91 20:44:00 Test Item Value Reference Range Interpretation Comments PTT (test code = PTT) 42.4 s 22.9-35.8 [facility] FiyxkaxZKXIRNOHSO8854-97-81 20:44:00 Test Item Value Reference Range Interpretation Comments PT (test code = PT) 14.6 s 12.0-14.7 [facility] JrlligbPLIRTUPPUX5672-08-69 20:44:001.11[facility] HermannLIPIDS 2015-02-16 05:00:0077[facility] HiatmmwSXBTRL2534-73-76 05:00:0029[facility] SIKNZP1166-58-38 05:00:77342Qzwyindx NqgwagwNATMFA9977-13-09 05:00:007.66 [facility] CjdiimyZRHTRD5281-53-53 05:00:95370Pivuybbr DyxaodpZZMUEJ5076-69-08 05:00:09851Djxkhstk HermannCARDIAC JKEKQEA4402-07-66 04:23:000.8[facility] CARDIAC NENYLTU6439-10-75 04:23:000.6[facility] HermannCARDIAC IKSUUHQ6710-34-98 04:23:00<0.02[facility] HermannCARDIAC EQVPWHY1300-32-73 04:23:0076[facility] HermannCARDIAC RILIDBH2310-18-61 00:27:00<0.02[facility] HermannCARDIAC ENZYMES 2015-02-16 00:27:0089[facility]annCARDIAC HPPXIAA5808-78-61 00:27:001.0 [facility]annCARDIAC EZLTLJV5857-57-40 00:27:000.9[facility] HermannTHYROID VEVBY2377-54-32 00:27:002.000[facility]annCARDIAC WWFSUPM2400-23-82 19:22:00 0.8[facility] HermannCARDIAC GMDILRM2522-92-17 19:22:00<0.02[facility] CARDIAC TEGZDWE6466-38-31 19:22:08146Tkiobmfu HermannCARDIAC KAVFDJQ2845-63-15 19:22:000.9[facility] HermannCHEM VXPEB4409-50-28 19:22:0070[facility] HermannCHEM MZNGJ4657-50-55 19:22:0087[facility] HermannCHEM GDTCI7363-60-52 19:22:0023 [facility] HermannCHEM LUHAF6923-19-75 19:22:0027[facility] HermannCHEM PANEL 2015-02-15 19:22:003.4[facility] HermannCHEM LDQKP8522-25-68 19:22:007.7[facility] HermannCHEM CJWRW6190-79-94 19:22:000.8[facility] HermannCHEM KYKEY5847-66-38 19:22:004.3[facility] HermannCHEM BRLWO9712-86-13 19:22:006[facility] HermannCHEM OQKKK1030-56-15 19:22:0011.8[facility] HermannCHEM VYTVS9828-75-27 19:22:000.4 [facility] HermannCHEM ZISSZ1621-84-07 19:22:009.2[facility] HermannCHEM PANEL 2015-02-15 19:22:0025[facility] HermannCHEM DDGBI1145-81-66 19:22:0088[facility] HermannCHEM CWIFM0457-91-89 19:22:91368Gnqrsegp HermannCHEM BXVNQ0742-77-30 19:22:004.8[facility] HermannCHEM EYNKE3604-29-17 19:22:98397Xukufkvf HermannCHEM AOSCF3159-87-36 19:22:001.2[facility] HermannCHEM UGVOM5116-56-75 19:22:007 [facility]annCHEM KUVDA0732-29-35 19:22:002.0[facility] HermannHEMATOLOGY 2015-02-15 19:22:000.4[facility] CsnwaerSWVMEDLSBH1517-77-44 19:22:000.0[facility] CqmdwyrDLBRJJKWQV3690-78-30 19:22:004.6[facility] PfmjzxxQHBHYEWLYI0088-30-17 19:22:000.8[facility] PdcyffkGRDYIYZEQR8029-54-52 19:22:0010.3[facility] ADGQGBHYSS6650-75-08 19:22:005.0[facility] DmxmqtkZAXEAAAYAK9087-97-33 19:22:000.4 [facility] YdrmjauGVOFUTMUUE1541-77-75 19:22:0025.7[facility] HermannHEMATOLOGY 2015-02-15 19:22:002.0[facility] WheqqmiZPPKWKBNJE4084-48-36 19:22:0058.6[facility] PncgxrfXVYXCVVFLA0866-63-26 19:22:001.00[facility] CzxcouwSGIANEHVJN5761-12-73 19:22:00 Test Item Value Reference Range Interpretation Comments PT (test code = PT) 13.5 s 12.0-14.7 [facility] XnsxybzNOCIEAVEPM2928-16-61 19:22:00 Test Item Value Reference Range Interpretation Comments PTT (test code = PTT) 33.7 s 22.9-35.8 [facility] FqoqpwrCUNIFYMQFG8126-45-16 19:22:22869Menhyefn HermannHEMATOLOGY 2015-02-15 19:22:007.8[facility] AgrkrxrQXIRIYIUJF4556-39-55 19:22:00 Test Item Value Reference Range Interpretation Comments MCH (test code = MCH) 33.3 pg 27.0-31.0 [facility] YxwxxnlSCIYJGPLMJ2231-21-88 19:22:004.62[facility] HermannHEMATOLOGY 2015-02-15 19:22:0097.4[facility] BxuulkwZCBGITPDCS3175-21-34 19:22:0015.4[facility] TbfurawGDPNVPZUHL0740-79-80 19:22:0045.0[facility] YhnaosgFQFJFWWGDD0932-34-24 19:22:0034.2[facility] NjejzxnETIKTSNHSK1757-82-51 19:22:007.0[facility] VXUDCMYEPT9465-87-78 19:22:0016.0[facility] HermannDRUG OEBSVK8588-89-11 20:10:00 Negative *NA*(01/23/15 3:10 PM)[facility] HermannDRUG ZLSPSA9436-51-37 20:10:00 Negative *NA*(01/23/15 3:10 PM)[facility] HermannDRUG IKIDJU0814-38-81 20:10:00 Negative *NA*(01/23/15 3:10 PM)[facility] HermannDRUG LMKGXI2309-89-70 20:10:00 Negative *NA*(01/23/15 3:10 PM)[facility] HermannDRUG RLBVUQ7674-42-57 20:10:00See Note (01/23/15 3:10 PM)[facility] HermannDRUG HWIBXZ0076-48-06 20:10:00Negative *NA*(01/23/15 3:10 PM)[facility] HermannDRUG IAXKGG2662-56-23 20:10:00Positive *ABN*(01/23/15 3:10 PM)[facility] HermannDRUG JZNVYF0818-16-52 20:10:00Negative *NA*(01/23/15 3:10 PM)[facility] GHCYG6356-74-76 20:10:00Negative (01/23/15 3:10 PM)[facility] AOLEJ9435-68-65 20:10:00Negative (01/23/15 3:10 PM)[facility] PCXVC7918-25-88 20:10:003[facility]UR[facility] AND POOJH1531-05-76 20:10:00<1[facility]UR[facility] AND STOOL 2015-01-23 20:10:005[facility]UR[facility] AND ZMZJD8153-58-20 20:10:00Yellow *NA*(01/23/15 3:10 PM)[facility] RWHNE5052-26-67 20:10:006.0 [facility]UR[facility] AND XMWQY1828-92-99 20:10:001.017[facility]UR[facility] AND DYBZZ6009-26-53 20:10:00Slight *ABN*(01/23/15 3:10 PM)[facility]UR[facility] XQDUG2261-49-53 20:10:00Moderate *ABN*(01/23/15 3:10 PM)[facility]UR[facility] SDAEC3962-89-38 20:10:00Negative *NA*(01/23/15 3:10 PM)[facility] HermannCARDIAC YVXNOBC7799-76-04 19:55:000.7[facility] HermannCARDIAC XNPNFJT7206-74-76 19:55:00 <0.02[facility] HermannCARDIAC RWAUPRN6844-52-63 19:55:38013Xsimsaqc [place] CARDIAC KHNINVR1634-58-92 19:55:001.2[facility] HermannCHEM MHLTH0268-12-80 19:55:0054[facility] HermannCHEM OEUKL2835-00-49 19:55:001.0[facility] HermannCHEM DPOWZ8663-37-73 19:55:0023[facility] HermannCHEM PAFCI0631-94-73 19:55:004.3 [facility] HermannCHEM DDAGJ7120-47-75 19:55:0039[facility] HermannCHEM PANEL 2015-01-23 19:55:008.8[facility] HermannCHEM JUSEM3985-52-19 19:55:009.3[facility] HermannCHEM QYFSY3364-28-85 19:55:0020.5[facility] HermannCHEM JKHII1122-45-43 19:55:004.5[facility] HermannCHEM FVAIO9060-40-15 19:55:0010[facility] HermannCHEM XUYGG5057-99-89 19:55:000.5[facility] HermannCHEM RHUCC6660-60-88 19:55:0088 [facility] HermannCHEM OKABH7517-91-22 19:55:004.5[facility] HermannCHEM PANEL 2015-01-23 19:55:20294Vdqricfx HermannCHEM AQWWS4784-03-22 19:55:0017[facility] HermannCHEM RRXMW4888-49-69 19:55:66771Nepraquf HermannCHEM NGIAP3169-66-12 19:55:12398Spolgwso HermannCHEM DBUCM7085-49-94 19:55:001.5[facility] HermannCHEM LABQR5916-74-84 19:55:0015[facility] WgkzjepKLSMDZEYIV2278-90-33 19:55:0089.7 [facility] BpetbrpTUVIKYZXMM6797-16-09 19:55:0011.6[facility] HermannHEMATOLOGY 2015-01-23 19:55:000.8[facility] JrrjsvmKQBJLEOOJZ2385-26-94 19:55:006.5[facility] VofswgzBIVAQVGNJI5969-44-38 19:55:003.2[facility] GjoeduiGMWSWRKCDU5367-23-88 19:55:000.4[facility] AkdgormHZAYCRLJSY2874-04-24 19:55:000.0[facility] SBQDHOGJVN0825-55-93 19:55:000.1[facility] UufuxkfOIDBPELUTT0516-03-92 19:55:000.2 [facility] UafqhkvZQHDNPULYA4738-73-19 19:55:000.4[facility] HermannHEMATOLOGY 2015-01-23 19:55:00 Test Item Value Reference Range Interpretation Comments PT (test code = PT) 14.2 s 12.0-14.7 [facility] ZjoarlgIYBPZPOWUM0431-18-93 19:55:001.07[facility] HermannHEMATOLOGY 2015-01-23 19:55:00 Test Item Value Reference Range Interpretation Comments PTT (test code = PTT) 31.2 s 22.9-35.8 [facility] CpvlkhpRKVXMUUJEP4688-59-49 19:55:008.3[facility] HermannHEMATOLOGY 2015-01-23 19:55:0032.8[facility] XngijbeOLQYUKUQRK8763-12-37 19:55:0017.0[facility] JwddvpuZEHOOJCZTV4584-51-82 19:55:54835Wcieyhkb TyirqufMGNYGGKIFI4916-06-32 19:55:0051.7[facility] MddmcenCCTJCAOOXN5109-84-09 19:55:0097.9[facility] GHJUQCHFZV9188-57-10 19:55:00 Test Item Value Reference Range Interpretation Comments MCH (test code = MCH) 32.1 pg 27.0-31.0 [facility] TviqqwgSMHDASBLWE5661-63-58 19:55:0017.0[facility] HermannHEMATOLOGY 2015-01-23 19:55:0012.9[facility] NrugkdkZIZBOCPDRL2943-18-16 19:55:005.28[facility] KsumgteVSDCQSUTNV6376-79-70 19:55:00<0.003[facility] HermannTOXICOLOGY 2015-01-23 19:55:00<3[facility] HermannCHEM IJGXA2626-65-47 17:07:0071[facility] HermannCHEM TEIZM3981-23-88 17:07:000.3[facility] HermannCHEM BYSFI1172-65-19 17:07:0018[facility] HermannCHEM AVXFF3216-43-29 17:07:0088[facility] HermannCHEM SDKVW8723-98-51 17:07:0036[facility] HermannCHEM VTIYD4727-01-54 17:07:004.0 [facility] HermannCHEM SHDNU1553-02-61 17:07:008.8[facility] HermannCHEM PANEL 2013-11-20 17:07:0022[facility] HermannCHEM AZTSB4224-84-20 17:07:009.5[facility] HermannCHEM PHHCD9924-73-26 17:07:93827Zimsamnw HermannCHEM GSOOE9906-21-97 17:07:35680Frxqwgrl HermannCHEM BSRXX6219-66-51 17:07:004.2[facility] HermannCHEM GVDIL1922-76-70 17:07:001.2[facility] HermannCHEM WCSNG0495-47-33 17:07:81799 [facility] HermannCHEM JCHLX3528-60-24 17:07:007[facility] HermannCHEM PANEL 2013-11-20 17:07:004.8[facility] HermannCHEM ACQPI1514-94-92 17:07:000.8[facility] HermannCHEM LZSDM3027-46-88 17:07:006[facility] HermannCHEM MRMVT5145-53-17 17:07:0014.2[facility] NaybsbfRUZNJLPPOM5732-44-33 17:07:003.2[facility] BLSMYDGJEL8624-39-45 17:07:0016.7[facility] RlmmyakKQJQOHOJNV0408-34-57 17:07:00 6.2[facility] SgjqofdQCVHNQTZPE6285-43-37 17:07:0073.3[facility] HermannHEMATOLOGY 2013-11-20 17:07:000.6[facility] PkmifsrRVUCFKBVJA0029-74-68 17:07:000.1[facility] GgelillZAMLPBPAPK5451-04-72 17:07:000.3[facility] UdarlkcAAVOKTOQBG2615-03-02 17:07:000.6[facility] HabtpwjTBKEOIYIRJ2333-50-81 17:07:001.6[facility] PDSXIZFMKK6859-23-03 17:07:006.8[facility] RibxhzcYTEOFHIFKO0516-68-34 17:07:39020 [facility] XkhsrnlNBPUSUXTCE9013-00-94 17:07:007.6[facility] HermannHEMATOLOGY 2013-11-20 17:07:0033.8[facility] OrkhpiaGQDKKFBCIS3943-84-77 17:07:0014.2[facility] MmtuuskJKPOZJKAFJ7963-31-33 17:07:00 Test Item Value Reference Range Interpretation Comments MCH (test code = MCH) 33.1 pg 27.0-31.0 [facility] PqfpqmlSPJOAZVDWD4298-84-04 17:07:0097.9[facility] HermannHEMATOLOGY 2013-11-20 17:07:0014.2[facility] CckeoxaXHEZSNBCAU4480-24-57 17:07:0042.1[facility] PxygaluMJNMXGXNPP8454-12-66 17:07:009.3[facility] LaptcezROKXRTASRU8113-39-12 17:07:004.30[facility] TojpnwvFDIYSYWKSV3804-30-52 17:07:007.7[facility] HermannCHEM PNRNH0412-90-99 19:25:0047[facility] HermannCHEM IDMDM5275-51-24 19:25:001.7 [facility] HermannCHEM NZLBZ9040-38-00 19:25:0014[facility] HermannELECTROLYTES 2013-11-17 19:25:004.3[facility] VvsecndHAWACSXVRY9390-28-98 19:25:0036.8[facility] BsbyhmtDRMAAMXUSZ4345-68-90 19:25:0097.6[facility] OeeivhlICUJYKYRJP8114-15-40 19:25:00 Test Item Value Reference Range Interpretation Comments MCH (test code = MCH) 33.2 pg 27.0-31.0 [facility] SywiyeaMXAXJALYKR8991-61-15 19:25:0012.5[facility] HermannHEMATOLOGY 2013-11-17 19:25:007.7[facility] OdzrxcvFUYEYOMJAZ7871-78-72 19:25:003.77[facility] HdntvddLPRTDWCYUT7087-01-81 19:25:0014.0[facility] LyeztcxKOPLKXESSV9739-00-09 19:25:60851Uimpgaxu RyeamafUWKVVQWQIE8537-37-99 19:25:007.7[facility] [place] QCZEWPXCSM9045-15-40 19:25:0034.0[facility] IzgikvtCGXWHFJPQY1133-96-03 19:25:00 5.7[facility] XskkzdkACWDKDLSBG0418-73-60 19:25:004.3[facility] HermannHEMATOLOGY 2013-11-17 19:25:000.0[facility] HvkvspyTCAPOGUFPI3882-98-63 19:25:000.3[facility] ErpppocGCJRKUYPZM9280-20-66 19:25:005.1[facility] HjadopjFOYWYQCSYZ3089-09-59 19:25:0016.3[facility] WpjtohiAZOLPAHJDG1508-06-85 19:25:001.2[facility] GPRHWYJKAP7821-30-15 19:25:000.3[facility] MkydcbwPEHJPPJZXV6268-38-34 19:25:000.4 [facility] VtemcmtXFXWRIUFAG5235-42-18 19:25:0074.0[facility] HermannTOXICOLOGY 2013-11-17 19:25:0024.4[facility] HermannCHEM VSSDO2801-44-27 18:20:0054[facility] HermannCHEM ZANRJ0452-24-77 18:20:001.5[facility] HermannCHEM QHSBV3092-71-29 18:20:0011[facility] XbutkysXQYIYJUKMPKK4554-47-94 18:20:004.5[facility] EWTJSYHWZH6258-55-20 18:20:00 Test Item Value Reference Range Interpretation Comments MCH (test code = MCH) 32.7 pg 27.0-31.0 [facility] IvouztwJHVZYACHXG4188-99-19 18:20:0033.6[facility] HermannHEMATOLOGY 2013-11-13 18:20:47242Ujvgzwet GxajvigSRFWUZOTOR3084-10-93 18:20:0014.0[facility] MmrbizpNRVCINDDSS8253-00-74 18:20:007.4[facility] PufhlrtITXSYUALOO8352-05-22 18:20:0012.2[facility] XtjqyblBSTRZIRXFI4139-11-32 18:20:003.73[facility] CLRGIDNVFP7275-89-49 18:20:0097.6[facility] NoybyzxHJKMDOHBHC3462-15-84 18:20:00 36.4[facility] GwmvjfxAJRTGIUVKR7533-36-73 18:20:009.7[facility] 2013-11-13 18:20:000.1[facility] DdnfghsDFABXWZJHC3561-96-86 18:20:002.0[facility] XpdggfuNRKFUMAJEU9583-42-28 18:20:000.7[facility] MygbfecBNFYNDHSZO2205-96-19 18:20:000.4[facility] RhtlmjqCFRNKJVCPY5781-75-05 18:20:000.6[facility] CHHTOFUVKC1667-27-33 18:20:006.6[facility] HdidsjpMIBOHXEZDL5890-12-54 18:20:00 20.5[facility] IscgkppXOIPAHCLGC4336-81-54 18:20:007.3[facility]annHEMATOLOGY 2013-11-13 18:20:003.7[facility] LtstkbtVUMJIPFVFF4196-39-63 18:20:0067.9[facility] RcmnjgpRGFTGJAZAW2453-30-03 18:20:0024.1[facility]
[2020-10-03] MEDS ORDERED: LEVETIRACETAM 500 MG/5 ML VIAL IV ONE (13:05)
[2020-10-03] MEDS ORDERED: THIAMINE 200 MG/2 ML INJ ONE (13:05)
[2020-10-03] MEDS ORDERED: NA CHLORIDE 0.9% 1,000 ML ONE (13:06)
[2020-10-03] MEDS ORDERED: NA CHLORIDE 0.9% 500 ML ONE (13:06)
[2020-10-03 13:11] LABS: Absolute Lymphocytes (CBC) 2.8 K/uL (0.7-4.9); Basophils % 1.3 % (0-1.3); Hematocrit 40.1 % (39.6-49.0); Lymphocytes % 32.3 % (15.3-44.8); MPV 7.9 fL (7.6-11.3); RBC Red Blood Cell Count 4.33 M/uL (4.33-5.43)
[2020-10-03] MEDS ORDERED: levETIRAcetam 1,000 MG in NA CHLORIDE 0.9% 100 ML IV SCH (13:20)
[2020-10-03 13:34] LABS: Protime INR 1.03
[2020-10-03 13:36] LABS: ALT/SGPT 12 U/L (12-78); AST/SGOT 17 U/L (15-37); Albumin 3.7 g/dL (3.4-5.0); Alkaline Phosphatase 91 U/L (45-117); BUN Blood Urea Nitrogen 24 mg/dL (7-18); Bicarbonate 22 mmol/L (21-32); Bilirubin Direct < 0.1 mg/dL (0-0.2); Bilirubin Total 0.2 mg/dL (0.2-1.0); CKMB Creatine Kinase MB 1.1 ng/mL (0.3-3.6); Creatine Phosphokinase 167 U/L (39-308); Glucose Level 78 mg/dL (74-106); Lipase 384 U/L (73-393); Magnesium 2.6 mg/dL (1.8-2.4); NT PRO-BNP 185 pg/mL (<125); Potassium 4.3 mmol/L (3.5-5.1); Protein, Total 7.5 g/dL (6.4-8.2); Sodium Level 133 mmol/L (136-145); Troponin (Emerg Dept Use Only) < 0.02 ng/mL (0.0-0.045)
--- NOTE | 2020-10-03 13:58 | RAD REPORT ---
EXAM DESCRIPTION: CT - Head C Spine Cap Wo Con - 10/03/2020 1:16 pm TECHNIQUE: Computed axial tomography of the head and cervical spine was obtained. Coronal and sagitt al reconstruction was performed Computed axial tomography of the chest, abdomen and pelvis was obtained. Contrast was not requested. All CT scans are performed using dose optimization technique as appropriate and may include automated exposure control or mA/KV adjustment according to patient size. CLINICAL HISTORY: Head and neck pain with chest and abdominal pain COMPARISON: CT Head and neck 2019 FINDINGS: An intracranial bleed is not seen. Mild to moderate low-density areas within periventricular, deep an d subcortical white matter may indicate ischemic changes secondary to small vessel disease The ventricles are normal in caliber. An extra-axial fluid collection is not noted. . Fluid within the maxillary, ethmoid and frontal sinuses. Small central disc herniation C2-3. Spondylosis involves the cervical spine resulting multilevel mild to moderate foraminal stenosis. A cervical fracture is not seen. No dislocation is noted. [address] calcification unchanged within the region of the right submandibular duct. The evaluation of mediastinum, tamar, vessels, solid organs and bowel are limited secondary to the lac k of contrast administration. A mediastinal hematoma is not noted. A pleural effusion is not seen. A lung contusion is not present. Lungs are clear. The liver,spleen, pancreas, adrenals, and kidneys appear grossly normal. Cholelithiasis. Normal appendix. No evidence of diverticulitis. Diffuse atherosclerotic disease. Spondylosis involves lumbar spine IMPRESSION: 1. No acute intracranial abnormality is seen. 2. A cervical fracture is not visualized. Spondylosis. If the patient continues have symptoms to sugg est intracranial/spinal cord/ spinal canal pathology MRI be recommended 3. Cholelithiasis 4. Fluid within the sinuses indicative of acute sinusitis
--- NOTE | 2020-10-03 14:08 | RAD REPORT ---
EXAM DESCRIPTION: RAD - Shoulder Left 2 View - 10/03/2020 1:01 pm CLINICAL HISTORY: Left shoulder pain FINDINGS: Anterior dislocation left humeral head. Nondisplaced subacute fracture left acromion better seen on a CT scan on the same date. Chronic bony/calcific densities lateral to glenoid
--- NOTE | 2020-10-03 14:08 | RAD REPORT ---
EXAM DESCRIPTION: [place] Single View10/03/2020 1:01 pm CLINICAL HISTORY: Cough COMPARISON: 2019 FINDINGS: The lungs appear clear of acute infiltrate. The heart is normal size Anterior dislocation left humeral
[2020-10-03 14:36] LABS: Urine Blood Negative (Negative); Urine Glucose Negative (Negative); Urine Protein Negative (Negative); Urine Specific Gravity 1.015 (1.005-1.030); Urine pH 5.5 (5.0-7.0)
--- NOTE | 2020-10-03 14:49 | EDPHYS ---
Physician Documentation [facility] Name: Karlos Leblanc Age: 54 yrs Sex: Male : 1965 Arrival Date: 10/03/2020 Time: 12:27 Bed 7 Private MD: ED Physician Aaron Pichardo HPI: 10/03 12:38 This 54 yrs old Male presents to ER via Unassigned with complaints of General riya Weakness. 12:38 The patient or guardian complains of decreased range of motion, pain, that is acute. riya left shoulder. Context: The problem was sustained at home. Onset: The symptoms/episode began/occurred 5 day(s) ago. Modifying factors: the symptoms are alleviated by nothing. The symptoms are aggravated by movement. Associated signs and symptoms: The patient has no apparent associated signs or symptoms. Onset: The symptoms/episode began/occurred 1 week(s) ago. Severity of symptoms: At their worst the symptoms were mild, moderate, in the emergency department the symptoms are unchanged. Severity of symptoms: At their worst the symptoms were moderate in the emergency department the symptoms have improved mildly. Treatment prior to arrival includes: no previous treatment. Historical: - Allergies: 13:09 NKDA; ld1 - Home Meds: 13:09 gabapentin 100 mg Oral cap 2 caps 3 times per day [Active]; lisinopril 10 mg Oral tab 1 ld1 tab once daily [Active]; Percocet 2.5-325 mg Oral tab [Active]; Keppra 100 mg/mL Oral soln [Active]; - PMHx: 13:09 Seizures; Hypertension; ld1 - Immunization history:: Adult Immunizations up to date. - Social history:: Smoking status: Patient reports the use of cigarette tobacco products, smokes two packs cigarettes per day. - Family history:: not pertinent. ROS: 12:41 Constitutional: Negative for fever, chills, and weight loss, Eyes: Negative for injury, riya pain, redness, and discharge, ENT: Negative for injury, pain, and discharge, Neck: Negative for injury, pain, and swelling, Cardiovascular: Negative for chest pain, palpitations, and edema, Respiratory: Negative for shortness of breath, cough, wheezing, and pleuritic chest pain, Abdomen/GI: Negative for abdominal pain, nausea, vomiting, diarrhea, and constipation, Back: Negative for injury and pain, : Negative for injury, bleeding, discharge, and swelling, Skin: Negative for injury, rash, and discoloration, Psych: Negative for depression, anxiety, suicide ideation, homicidal ideation, and hallucinations, Allergy/Immunology: Negative for hives, rash, and allergies, Endocrine: Negative for neck swelling, polydipsia, polyuria, polyphagia, and marked weight changes, Hematologic/Lymphatic: Negative for swollen nodes, abnormal bleeding, and unusual bruising. 12:41 MS/extremity: Positive for decreased range of motion, deformity, tenderness, of the anterior aspect of left shoulder and posterior aspect of left shoulder. 12:41 Neuro: Positive for weakness. Exam: 12:41 Constitutional: This is a well developed, well nourished patient who is awake, alert, riya and in no acute distress. Head/Face: Normocephalic, atraumatic. Eyes: Pupils equal round and reactive to light, extra-ocular motions intact. Lids and lashes normal. Conjunctiva and sclera are non-icteric and not injected. Cornea within normal limits. Periorbital areas with no swelling, redness, or edema. ENT: Nares patent. No nasal discharge, no septal abnormalities noted. Tympanic membranes are normal and external auditory canals are clear. Oropharynx with no redness, swelling, or masses, exudates, or evidence of obstruction, uvula midline. Mucous membranes moist. Neck: Trachea midline, no thyromegaly or masses palpated, and no cervical lymphadenopathy. Supple, full range of motion without nuchal rigidity, or vertebral point tenderness. No Meningismus. Chest/axilla: Normal chest wall appearance and motion. Nontender with no deformity. No lesions are appreciated. Cardiovascular: Regular rate and rhythm with a normal S1 and S2. No gallops, murmurs, or rubs. Normal PMI, no JVD. No pulse deficits. Respiratory: Lungs have equal breath sounds bilaterally, clear to auscultation and percussion. No rales, rhonchi or wheezes noted. No increased work of breathing, no retractions or nasal flaring. Abdomen/GI: Soft, non-tender, with normal bowel sounds. No distension or tympany. No guarding or rebound. No evidence of tenderness throughout. Back: No spinal tenderness. No costovertebral tenderness. Full range of motion. Skin: Warm, dry with normal turgor. Normal color with no rashes, no lesions, and no evidence of cellulitis. Neuro: Awake and alert, GCS 15, oriented to person, place, time, and situation. Cranial nerves II-XII grossly intact. Motor strength 5/5 in all extremities. Sensory grossly intact. Cerebellar exam normal. Normal gait. Psych: Awake, alert, with orientation to person, place and time. Behavior, mood, and affect are within normal limits. 12:41 Musculoskeletal/extremity: Extremities: noted in the anterior aspect of left shoulder and posterior aspect of left shoulder: contusion, decreased ROM, pain, DVT Exam: No signs of deep vein thrombosis. no pain, no swelling, no tenderness, negative Homans' sign noted on exam, no appreciated bluish discoloration, no erythema, no increased warmth. 12:41 Neuro: Orientation: is normal, appropriate for stated age, no acute changes, Mentation: is normal, appropriate for stated age, no acute changes, Memory: is normal, appropriate for stated age, no acute changes, Cranial nerves: grossly normal, is grossly normal based on the patient's age, no acute changes, Cerebellar function: is grossly normal, is grossly normal based on the patient's age, no acute changes, Motor: moves all fours, Sensation: no acute changes, Gait: not tested. seizure activity, is not displayed by the patient. 13:48 ECG was reviewed by the Attending Physician. riya Vital Signs: 12:27 BP 92 / 63; Pulse 71; Resp 14; Temp 98.5(TE); Pulse Ox 96% on R/A; Weight 81.65 kg; ld1 Height 6 ft. 1 in. (185.42 cm); Pain 9/10; 13:10 BP 92 / 63; Pulse 69; Resp 18; Pulse Ox 97% on R/A; Pain 9/10; ld1 16:46 BP 130 / 64; Pulse 71; Resp 19; Pulse Ox 93% ; ld1 18:04 BP 128 / 64; Pulse 66; Resp 16; Pulse Ox 98% on R/A; ld1 18:50 BP 128 / 64; Pulse 69; Resp 18; Pulse Ox 95% on R/A; ld1 20:00 BP 127 / 62; Pulse 62; Resp 18; Pulse Ox 96% ; wh 21:00 BP 126 / 72; Pulse 58; Resp 16; Pulse Ox 96% on R/A; wh 12:27 Body Mass Index 23.75 (81.65 kg, 185.42 cm) ld1 MDM: 12:29 Patient medically screened. [facility] 12:43 Differential diagnosis: Anterior dislocation with fracture, Anterior dislocation riya without fracture. Differential Diagnosis altered mental status. Data reviewed: vital signs, nurses notes. Data interpreted: teletypesetter monitor: rate is 85 beats/min, rhythm is regular, Pulse oximetry: on room air is 100 %. Test interpretation: by ED physician or midlevel provider: ECG, plain radiologic studies. Counseling: I had a detailed discussion with the patient and/or guardian regarding: the historical points, exam findings, and any diagnostic results supporting the discharge/admit diagnosis, lab results. 10/03 12:36 Order name: Basic Metabolic Panel; Complete Time: 13:[address] [facility] 10/03 12:36 Order name: CBC with Diff; Complete Time: 13:[address] [facility] 10/03 12:36 Order name: LFT's; Complete Time: 13:[address] [facility] 10/03 12:36 Order name: Magnesium; Complete Time: 13:[address] [facility] 10/03 12:36 Order name: NT PRO-BNP; Complete Time: 13:[address] [facility] 10/03 12:36 Order name: PT-INR; Complete Time: 13:[address] [facility] 10/03 12:36 Order name: Troponin (emerg Dept Use Only); Complete Time: 13:[address] [facility] 10/03 12:36 Order name: Lipase; Complete Time: 13:[address] [facility] 10/03 12:36 Order name: UDS [facility] 10/03 12:43 Order name: LAB Add On eb 10/03 13:15 Order name: Creatine Phosphokinase; Complete Time: 13:48 [facility] 10/03 13:15 Order name: CKMB Creatine Kinase MB; Complete Time: 13:48 [facility] 10/03 14:35 Order name: Urine Dipstick-Ancillary; Complete Time: 14:37 [facility] 10/03 12:36 Order name: XRAY Chest (1 view); Complete Time: 14:[address] [facility] 10/03 12:36 Order name: Shoulder Left (2 View) XRAY; Complete Time: 14:[address] [facility] 10/03 12:36 Order name: CT Traumagram (Head C Spine CAP wo con); Complete Time: 14:[address] [facility] 10/03 16:36 Order name: Comprehensive Metabolic Panel EDIN 10/03 16:36 Order name: Comprehensive Metabolic Panel EDIN 10/03 16:36 Order name: Creatine Phosphokinase EDIN 10/03 16:36 Order name: Creatine Phosphokinase EDIN 10/03 16:36 Order name: Protime (+INR) EDIN 10/03 16:36 Order name: Protime (+INR) EDIN 10/03 16:36 Order name: PTT, Activated Partial Thromb EDIN 10/03 16:36 Order name: CBC with Automated Diff EDIN 10/03 16:37 Order name: CBC with Automated Diff EDIN 10/03 16:37 Order name: PTT, Activated Partial Thromb EDIN 10/03 18:58 Order name: COVID-19 : Document "Date of Symptom Onset" if Symptomatic. eb 10/03 20:01 Order name: CORONAVIRUS [facility] 10/03 20:43 Order name: SARS-COV-2 RT PCR EDIN 10/03 12:36 Order name: EKG; Complete Time: 12:[address] [facility] 10/03 12:36 Order name: Cardiac monitoring; Complete Time: 12:[address] [facility] 10/03 12:36 Order name: EKG - Nurse/Tech; Complete Time: 13:[address] [facility] 10/03 12:36 Order name: IV Saline Lock; Complete Time: 13:[address] [facility] 10/03 12:36 Order name: Labs collected and sent; Complete Time: 13:[address] [facility] 10/03 12:36 Order name: O2 Per Protocol; Complete Time: 12:[address] [facility] 10/03 12:36 Order name: O2 Sat Monitoring; Complete Time: 12:[address] [facility] 10/03 12:36 Order name: Urine Dipstick-Ancillary (obtain specimen); Complete Time: 14:[address] [facility] 10/03 12:36 Order name: Seizure Precautions; Complete Time: 13:[address] [facility] 10/03 14:39 Order name: Ice pack; Complete Time: 15:[address] [facility] 10/03 16:36 Order name: CONS Physician Consult [facility] 10/03 16:36 Order name: Heart Healthy EDIN EC:48 Rate is 58 beats/min. Rhythm is regular. QRS [place] is Normal. ME interval is normal. QRS riya interval is normal. QT interval is normal. No Q waves. T waves are Normal. No ST changes noted. Clinical impression: Sinus bradycardia and No evidence of ischemia. Interpreted by me. Reviewed by me. Administered Medications: 13:29 Drug: Keppra (levETIRAcetam) 1000 mg Route: IV; Rate: per protocol; Site: right wrist; ld1 13:44 Follow up: Response: No adverse reaction; IV Status: Completed infusion ld1 13:43 Drug: NS 0.9% 500 ml Route: IV; Rate: bolus; Site: right forearm; ld1 14:37 Follow up: Response: No adverse reaction; IV Status: Completed infusion ld1 13:44 Drug: Thiamine 100 mg Route: IV; Rate: bolus; Site: right forearm; ld1 14:36 Follow up: Response: No adverse reaction; IV Status: Completed infusion ld1 14:36 Drug: NS 0.9% 1000 ml Route: IV; Rate: 125 ml/hr; Site: right forearm; ld1 21:55 Follow up: Response: No adverse reaction; IV Status: Completed infusion 15:19 Drug: fentaNYL (PF) 50 mcg Route: IVP; Site: right forearm; ld1 21:54 Follow up: Response: No adverse reaction; Pain is decreased; RASS: Alert and Calm (0) 15:19 Drug: Zofran (Ondansetron) 4 mg Route: IVP; Site: right forearm; ld1 21:54 Follow up: Response: No adverse reaction 17:20 Drug: fentaNYL (PF) 50 mcg Route: IVP; Site: left forearm; ld1 21:46 Follow up: Response: No adverse reaction; Pain is decreased; RASS: Alert and Calm (0) 17:20 Drug: Zofran (Ondansetron) 4 mg Route: IVP; Site: left forearm; ld1 21:46 Follow up: Response: No adverse reaction Disposition: 10/03/20 14:48 Hospitalization ordered by Fili Ramirez for Observation. Preliminary diagnosis are Epileptic seizures related to external causes, Recurrent dislocation, left shoulder - chronic, Weakness, Unspecified kidney failure - acute on chronic, Repeated falls. - Bed requested for Telemetry/MedSurg (observation). - Status is Observation. wh - Condition is Fair. - Problem is new. - Symptoms have improved. Signatures: Dispatcher [employer] EDMS Ritika Yost RN RN mw Anderson, Corey, MD MD cha Habalo, Winsy, RN RN Lise Luque RN RN ld1 Corrections: (The following items were deleted from the chart) 15:18 14:39 Sling [address] [facility] ld1 20:54 14:48 Hospitalization Ordered by Fili Ramirez MD for Observation. Preliminary diagnosis is Epileptic seizures related to external causes; Recurrent dislocation, left shoulder - chronic; Weakness; Unspecified kidney failure - acute on chronic; Repeated falls. Bed requested for Telemetry/MedSurg (observation). Status is Observation. Condition is Fair. Problem is new. Symptoms have improved. [facility] 22:00 20:54 10/03/2020 14:48 Hospitalization Ordered by Fili Ramirez MD for Observation. Preliminary diagnosis is Epileptic seizures related to external causes; Recurrent dislocation, left shoulder - chronic; Weakness; Unspecified kidney failure - acute on chronic; Repeated falls. Bed requested for Telemetry/MedSurg (observation). Status is Observation. Condition is Fair. Problem is new. Symptoms have improved.
--- NOTE | 2020-10-03 14:49 | ER ---
Nurse's Notes [facility] Name: Karlos Leblanc Age: 54 yrs Sex: Male : 1965 Arrival Date: 10/03/2020 Time: 12:27 Bed 7 Private MD: Diagnosis: Epileptic seizures related to external causes;Recurrent dislocation, left shoulder-chronic;Weakness;Unspecified kidney failure-acute on chronic;Repeated falls Presentation: 10/03 12:27 Chief complaint: EMS states: Generalized weakness, pain all over. ld1 12:27 Coronavirus screen: Client denies travel out of the [place] in the last 14 days. At this ld1 time, the client does not indicate any symptoms associated with coronavirus-19. Ebola Screen: No symptoms or risks identified at this time. Initial Sepsis Screen: Does the patient meet any 2 criteria? No. Patient's initial sepsis screen is negative. Does the patient have a suspected source of infection? No. Patient's initial sepsis screen is negative. Risk Assessment: Do you want to hurt yourself or someone else? Patient reports no desire to harm self or others. Onset of symptoms was September 26, 2020. 12:27 Method Of Arrival: EMS: [facility] ld1 12:27 Acuity: KENIA 3 ld1 Triage Assessment: 12:27 General: Appears in no apparent distress. uncomfortable, Behavior is calm, cooperative, ld1 appropriate for age. 12:27 Pain: Complains of pain in right arm and left arm Pain currently is 9 out of 10 on a ld1 pain scale. Quality of pain is described as stabbing, tingling, throbbing, Pain began 1 week ago Is continuous. EENT: No signs and/or symptoms were reported regarding the EENT system. Neuro: Level of Consciousness is awake, alert, obeys commands, Oriented to person, place, time, situation. Cardiovascular: Capillary refill < 3 seconds Patient's skin is warm and dry. Respiratory: Airway is patent Respiratory effort is even, unlabored, Respiratory pattern is regular, symmetrical. GI: Abdomen is flat, non-distended. : No signs and/or symptoms were reported regarding the genitourinary system. Derm: No signs and/or symptoms reported regarding the dermatologic system. 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 Left shoulder appears to be out of socket. Historical: - Allergies: 13:09 NKDA; ld1 - Home Meds: 13:09 gabapentin 100 mg Oral cap 2 caps 3 times per day [Active]; lisinopril 10 mg Oral tab 1 ld1 tab once daily [Active]; Percocet 2.5-325 mg Oral tab [Active]; Keppra 100 mg/mL Oral soln [Active]; - PMHx: 13:09 Seizures; Hypertension; ld1 - Immunization history:: Adult Immunizations up to date. - Social history:: Smoking status: Patient reports the use of cigarette tobacco products, smokes two packs cigarettes per day. - Family history:: not pertinent. Screenin:12 Abuse screen: Denies threats or abuse. Denies injuries from another. Nutritional ld1 screening: No deficits noted. Tuberculosis screening: No symptoms or risk factors identified. Fall Risk Secondary diagnosis (15 points) seizures, IV access (20 points). Assessment: 13:12 Reassessment: See triage assessment. ld1 14:45 Reassessment: Patient and/or family updated on plan of care and expected duration. Pain ld1 level reassessed. Pt resting in bed, laying in bed waiting on results. ERP at bedside discussing POC. 15:50 Reassessment: Pt laying in bed resting with eyes closed, RR 15. No signs of respiratory ld1 distress. 17:00 Reassessment: Pt c/o pain 8/10. Notified ERP. See [facility] for orders. ld1 18:05 Reassessment: No changes from previously documented assessment. Patient and/or family ld1 updated on plan of care and expected duration. Pain level reassessed. Pt resting in bed. Denies concerns at this time. 18:50 Reassessment: No changes from previously documented assessment. Patient and/or family ld1 updated on plan of care and expected duration. Pain level reassessed. Pt laying in bed waiting on results. Denies any concerns at this time. 19:15 Reassessment: Patient appears in no apparent distress at this time. Patient and/or wh family updated on plan of care and expected duration. Pain level reassessed. Patient is alert, oriented x 3, equal unlabored respirations, skin warm/dry/pink. 21:00 Reassessment: Patient appears in no apparent distress at this time. Patient and/or wh family updated on plan of care and expected duration. Pain level reassessed. Patient is alert, oriented x 3, equal unlabored respirations, skin warm/dry/pink. Vital Signs: 12:27 BP 92 / 63; Pulse 71; Resp 14; Temp 98.5(TE); Pulse Ox 96% on R/A; Weight 81.65 kg; ld1 Height 6 ft. 1 in. (185.42 cm); Pain 9/10; 13:10 BP 92 / 63; Pulse 69; Resp 18; Pulse Ox 97% on R/A; Pain 9/10; ld1 16:46 BP 130 / 64; Pulse 71; Resp 19; Pulse Ox 93% ; ld1 18:04 BP 128 / 64; Pulse 66; Resp 16; Pulse Ox 98% on R/A; ld1 18:50 BP 128 / 64; Pulse 69; Resp 18; Pulse Ox 95% on R/A; ld1 20:00 BP 127 / 62; Pulse 62; Resp 18; Pulse Ox 96% ; wh 21:00 BP 126 / 72; Pulse 58; Resp 16; Pulse Ox 96% on R/A; wh 12:27 Body Mass Index 23.75 (81.65 kg, 185.42 cm) ld1 ED Course: 12:27 Patient arrived in ED. sv 12:27 Arm band placed on right wrist. ld1 12:29 Aaron Pichardo MD is Attending Physician. [facility] 12:38 Lise Luque, TAVO is Primary Nurse. ld1 12:52 X-ray(s) taken. sv 13:01 XRAY Chest (1 view) In Process Unspecified. EDMS 13:01 Shoulder Left (2 View) XRAY In Process Unspecified. EDMS 13:08 Triage completed. ld1 13:12 No provider procedures requiring assistance completed. Inserted saline lock: 22 gauge ld1 in right forearm, using aseptic technique. Blood collected. 13:12 Patient has correct armband on for positive identification. Placed in gown. Bed in low ld1 position. Call light in reach. Side rails up X 1. hand quilter on. Pulse ox on. NIBP on. Door closed. Noise minimized. Warm blanket given. 13:16 CT Traumagram (Head C Spine CAP wo con) In Process Unspecified. EDMS 14:10 LAB Add On Sent. sv 14:40 Fili Ramirez MD is Hospitalizing Provider. [facility] 21:54 Patient admitted, IV remains in place. Administered Medications: 13:29 Drug: Keppra (levETIRAcetam) 1000 mg Route: IV; Rate: per protocol; Site: right wrist; ld1 13:44 Follow up: Response: No adverse reaction; IV Status: Completed infusion ld1 13:43 Drug: NS 0.9% 500 ml Route: IV; Rate: bolus; Site: right forearm; ld1 14:37 Follow up: Response: No adverse reaction; IV Status: Completed infusion ld1 13:44 Drug: Thiamine 100 mg Route: IV; Rate: bolus; Site: right forearm; ld1 14:36 Follow up: Response: No adverse reaction; IV Status: Completed infusion ld1 14:36 Drug: NS 0.9% 1000 ml Route: IV; Rate: 125 ml/hr; Site: right forearm; ld1 21:55 Follow up: Response: No adverse reaction; IV Status: Completed infusion 15:19 Drug: fentaNYL (PF) 50 mcg Route: IVP; Site: right forearm; ld1 21:54 Follow up: Response: No adverse reaction; Pain is decreased; RASS: Alert and Calm (0) 15:19 Drug: Zofran (Ondansetron) 4 mg Route: IVP; Site: right forearm; ld1 21:54 Follow up: Response: No adverse reaction 17:20 Drug: fentaNYL (PF) 50 mcg Route: IVP; Site: left forearm; ld1 21:46 Follow up: Response: No adverse reaction; Pain is decreased; RASS: Alert and Calm (0) 17:20 Drug: Zofran (Ondansetron) 4 mg Route: IVP; Site: left forearm; ld1 21:46 Follow up: Response: No adverse reaction Outcome: 14:48 Decision to Hospitalize by Provider. riya 21:53 Admitted to [facility] via wheelchair, room 412. 21:53 Condition: stable 21:53 Instructed on the need for admit. 22:00 Patient left the ED. Signatures: Dispatcher [employer] Lata Cody RN RN sv Anderson, Corey, MD MD cha Habalo, Winsy, RN RN Lise Luque RN RN ld1 Corrections: (The following items were deleted from the chart) 18:05 16:46 Reassessment: No changes from previously documented assessment. c/o left shoulder ld1 pain level 11/04. ld1 18: 18:04 Reassessment: Pt c/o pain 01/04. Notified ERP. See [facility] for orders. ld1 ld1 18: 17:00 Reassessment: No changes from previously documented assessment. Patient and/or ld1 family updated on plan of care and expected duration. Pain level reassessed. Pt resting in bed. Denies concerns at this time. ld1
[2020-10-03 14:50] LABS: Barbiturates NEGATIVE (NEGATIVE); Benzodiazepines POSITIVE (NEGATIVE); Cocaine NEGATIVE (NEGATIVE); METHAMPHETAM NEGATIVE (NEGATIVE); Methadone NEGATIVE (NEGATIVE); Opiates NEGATIVE (NEGATIVE); Phencyclidine NEGATIVE (NEGATIVE); THC Cannibis NEGATIVE (NEGATIVE)
[2020-10-03] MEDS ORDERED: ONDANSETRON 4 MG/2 ML VIAL ONE (15:13)
[2020-10-03] MEDS ORDERED: FENTANYL CITR 100 MCG/2 ML ONE ×2 (15:13→17:12)
[2020-10-03] MEDS ORDERED: MORPHINE 2 MG/ML SYR IV PRN (16:33)
[2020-10-03] MEDS ORDERED: ONDANSETRON 4 MG/2 ML VIAL IV PRN (16:33)
[2020-10-03] MEDS ORDERED: ACETAMINOPHEN 500 MG TAB PO PRN (16:33)
[2020-10-03] MEDS ORDERED: CEFTRIAXONE/SWI 1gm 1 GM/10 ML SYR IV SCH (21:00)
[2020-10-03] MEDS ORDERED: CEFTRIAXONE 1 GM/NS 50 ML 1 GM/50 ML BAG IV ONE (21:00)
[2020-10-03 22:34] VITALS: BMI 23.3
[2020-10-04] MEDS: NA CHLORIDE 0.9% 1,000 ML IV SCH ×2 (00:01→08:32)
[2020-10-04] MEDS ORDERED: NA CHLORIDE 0.9% 100 ML ONE (00:29)
[2020-10-04] MEDS ORDERED: LEVETIRACETAM 500 MG/5 ML VIAL IV ONE (00:29)
--- NOTE | 2020-10-04 01:15 | P.HP ---
Certification for Inpatient Patient admitted to: Observation With expected LOS: <2 Midnights Patient will require the following post-hospital care: None Practitioner: I am a practitioner with admitting privileges, knowledge of patient current condition, hospital course, and medical plan of care. Services: Services provided to patient in accordance with Admission requirements found in Title 42 Section 412.3 of the Code of Federal Regulations Patient History Date of Service: 10/03/20 Reason for admission: Seizure disorder/fall/shoulder fracture History of Present Illness: Patient is a 54-year-old gentleman who came to the hospital after having a seizure and falling. Patient had an episode were he fell about a week ago. He suffered a laceration on the scalp. Patient has not been taking his seizure medication as prescribed. He also used to take Xanax which she does not take anymore. Patient suffered a slight shoulder fracture and orthopedic, Dr. Lewis was consulted. Patient has a prior chronic shoulder dislocation as well. Patient will also get neurology consultation. Patient will be admitted to the hospital for further evaluation. Allergies No Known Allergies Allergy (Verified 09/02/19 00:22) Home Medications: Minocycline HCl 100 mg PO BID #20 capsule 09/03/19 Sulfamethoxazole/Trimethoprim [Bactrim Ds Tablet] 1 each PO BID #20 tablet 09/03/19 - Past Medical/Surgical History Diabetic: No -: HTN -: CHF, diastolic dysfunction -: COPD -: CAD -: PVD -: Left partial foot amputation -: History of osteomyelitis -: History of drug use -: Alcohol abuse -: Tobacco abuse -: GERD -: Rt great toe & 2nd toe amputated-Dec 2015 -: Left partial foot amputation-January 2019 Psychosocial/ Personal History: Patient currently lives in a [facility] - Family History Father Medical History: Cancer Mother Medical History: Cancer - Social History Smoking Status: Light Tobacco smoker (1-9 cigarettes/day) Alcohol use: Yes CD- Drugs: No Caffeine use: Yes Review of Systems 10-point ROS is otherwise unremarkable Physical Examination - Vital Signs Temperature: 97.6 F Blood Pressure: 137/63 Pulse: 71 Respirations: 18 Pulse Ox (%): 99 - Physical Exam General: Alert, In no apparent distress, Oriented x3 HEENT: Atraumatic, PERRLA, Mucous membr. moist/pink, Other (Scabs on this scalp with no drainage), EOMI, Sclerae nonicteric Neck: Supple, 2+ carotid pulse no bruit, No LAD, Without JVD or thyroid abnormality Respiratory: Clear to auscultation bilaterally, Normal air movement Cardiovascular: Regular rate/rhythm, Normal S1 S2, No murmurs Gastrointestinal: Normal bowel sounds, Soft and benign, Non-distended, No tenderness Musculoskeletal: No clubbing, No swelling, No tenderness Integumentary: No rashes Neurological: Normal gait, Normal speech, Normal strength at 5/5 x4 extr, Normal tone, Sensation intact, Cranial nerves 3-12 intact, Normal affect Lymphatics: No axilla or inguinal lymphadenopathy - Studies Laboratory Data (last 24 hrs) 10/03/20 13:02: PT 11.8, INR 1.03 10/03/20 13:02: WBC 8.60, Hgb 13.5 L, Hct 40.1, Plt Count 184 10/03/20 13:02: Sodium 133 L, Potassium 4.3, BUN 24 H, Creatinine 1.53 H, Glucose 78, Magnesium 2.6 H, Total Bilirubin 0.2, AST 17, ALT 12, Alkaline Phosphatase 91, Lipase 384 Assessment & Plan - Problems (Diagnosis) (1) Seizure disorder Current Visit: Yes Status: Acute (2) Fracture of acromion of scapula Current Visit: Yes Status: Acute (3) Scalp laceration Current Visit: Yes Status: Acute (4) Status post fall Current Visit: Yes Status: Acute (5) Alcohol abuse Onset Date: 01/07/16 Current Visit: No Status: Chronic (6) CAD (coronary artery disease) Onset Date: 03/15/17 Current Visit: No Status: Chronic Qualifiers: Coronary Disease-Associated Artery/Lesion type: [place] artery [place] vs. transplanted heart: [place] heart Associated angina: without angina Qualified Code(s): I25.10 - Atherosclerotic heart disease of [place] coronary artery without angina pectoris (7) CHF (congestive heart failure) Onset Date: 03/15/17 Current Visit: No Status: Chronic (8) COPD exacerbation Onset Date: 12/06/15 Current Visit: No Status: Inactive - Plan Plan: 1. Continue with anti epileptics 2. Trading Assistant regarding noncompliance 3. Anxiolytics as needed 4. Bactroban to scalp laceration 5. EEG 6. Orthopedic consultation to evaluate acromion fracture 7. Neurology consultation for further recommendation regarding anti epileptic therapy 8. GI and DVT prophylaxis Discharge Plan: Home Plan to discharge in: Greater than 2 days - Advance Directives Does patient have a Living Will: No Does patient have a Durable POA for Healthcare: No - Code Status/Comfort Care Code Status Assessed: Yes Code Status: Full Code Critical Care: No Time Spent Managing PTS Care (In Minutes): 45
[2020-10-04 06:08] LABS: Absolute Lymphocytes (CBC) 2.1 K/uL (0.7-4.9); Basophils % 1.3 % (0-1.3); Lymphocytes % 23.7 % (15.3-44.8); MPV 7.8 fL (7.6-11.3); RBC Red Blood Cell Count 4.22 M/uL (4.33-5.43)
[2020-10-04 06:37] LABS: Protime INR 1.01
[2020-10-04 06:40] LABS: Albumin 3.4 g/dL (3.4-5.0); Bilirubin Total 0.3 mg/dL (0.2-1.0); Potassium 4.4 mmol/L (3.5-5.1); Protein, Total 7.1 g/dL (6.4-8.2)
[2020-10-04] MEDS: clonazePAM 0.5 MG TAB PO SCH ×2 (08:31→14:00)
[2020-10-04] MEDS: levETIRAcetam 1,000 MG in NA CHLORIDE 0.9% 100 ML IV SCH ×3 (08:31)
[2020-10-04 08:45] VITALS: O2SAT 98
[2020-10-04] MEDS ORDERED: MUPIROCIN 2% OINT 22GM TUBE TOP SCH (09:00)
--- NOTE | 2020-10-04 09:22 | P.DS ---
Admission Date: 10/03/20 Discharge Date: 10/04/20 Primary Care Provider: none Disposition: ROUTINE DISCHARGE Discharge Condition: GOOD Reason for Admission: Seizure disorder/fall/shoulder fracture Consultations: Neurology-Dr. Escobar Procedures: COVID: Negative CT Scan: Computed axial tomography of the chest, abdomen and pelvis was obtained. Contrast was not requested. All CT scans are performed using dose optimization technique as appropriate and may include automated exposure control or mA/KV adjustment according to patient size. CLINICAL HISTORY: Head and neck pain with chest and abdominal pain COMPARISON: CT Head and neck 2020 FINDINGS: An intracranial bleed is not seen. Mild to moderate low-density areas within periventricular, deep and subcortical white matter may indicate ischemic changes secondary to small vessel disease The ventricles are normal in caliber. An extra-axial fluid collection is not noted. . Fluid within the maxillary, ethmoid and frontal sinuses. Small central disc herniation C2-3. Spondylosis involves the cervical spine resulting multilevel mild to moderate foraminal stenosis. A cervical fracture is not seen. No dislocation is noted. 16 millimeter calcification unchanged within the region of the right submandibular duct. The evaluation of mediastinum, tamar, vessels, solid organs and bowel are limited secondary to the lack of contrast administration. A mediastinal hematoma is not noted. A pleural effusion is not seen. A lung contusion is not present. Lungs are clear. The liver,spleen, pancreas, adrenals, and kidneys appear grossly normal. Cholelithiasis. Normal appendix. No evidence of diverticulitis. Diffuse atherosclerotic disease. Spondylosis involves lumbar spine IMPRESSION: 1. No acute intracranial abnormality is seen. 2. A cervical fracture is not visualized. Spondylosis. 3. Cholelithiasis 4. Fluid within the sinuses indicative of acute sinusitis ADDENDUM Curvilinear lucency within the left acromion has the appearance of subacute nondisplaced fracture. Anterior dislocation involves left humeral head MRI Brain: FINDINGS: No intracranial hemorrhage, mass or acute infarction. There is no edema or shift of midline structures. No extra-axial fluid collections. Skinner- matter/white matter junction is preserved. Signal voids are seen as a normal finding in the major intracranial vessels. T2 weighted imaging shows scattered areas of hyperintense signal in the cerebral white matter. There is focally more pronounced signal abnormality in the deep periventricular white matter of each frontal lobe extending into the genu of the corpus callosum. There is focal hypointense T1 and hyperintense T2 signal in the left-side of the genu. Frontal horn left lateral ventricle has enlarged slightly relative to the right. Exam has underlying motion degradation on multiple sequences. This particularly affects the coronal imaging. No gross abnormality of either medial temporal lobe. Post-contrast images show normal enhancement. No dural thickening. Mastoid air cells are clear. Mucosal thickening and air-fluid levels are present in both maxillary sinuses with mucosal thickening in the ethmoid and frontal sinuses. No sella or supra sella abnormality. No globe or orbital content acute finding. IMPRESSION: No acute infarction seen. No mass, hemorrhage or acute intracranial finding. Patient has chronic ischemic change in the cerebral white matter with focally more prominent chronic ischemic changes in the deep periventricular white matter are of each frontal lobe in the genu of the corpus callosum. There is evidence for old infarction change involving the left-side genu of the corpus callosum and adjacent deep periventricular frontal lobe white matter. Other than the genu corpus callosum and deep frontal lobe ischemic change, no areas seen as possible seizure foci. Shoulder xray: FINDINGS: Anterior dislocation left humeral head. Nondisplaced subacute fracture left acromion better seen on a CT scan on the same date. Chronic bony/calcific densities lateral to glenoid CXR: COMPARISON: 2020 FINDINGS: The lungs appear clear of acute infiltrate. 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 This happened about a week ago. He suffered a laceration to the scalp. He had not been taking his seizure medication as prescribed. Patient was admitted for further evaluation and treatment. Hospital Course: Patient presented after a fall. Patient with history of seizure disorder. Patient also has chronic anterior dislocation of the left humeral head with nondisplaced subacute fracture of the left acromium. Orthopedics was consulted. No intervention was required since this is a chronic condition. Patient may follow-up with orthopedics as an outpatient to further address. Patient may continue with a sling at home at discharge. Patient with underlying seizure disorder. Compliance addressed in detail. Patient will continue with Keppra 500 mg daily. Recommend follow-up with neurology to further monitor and adjust medication. As recommended previously no heavy lifting, pushing or pulling. Recommend no driving, swimming or operating heavy equipment. Patient with CAD, chronic CHF and hypertension. At discharge patient may continue with lisinopril 20 mg daily. Recommend to monitor blood pressure daily. Recommend to maintain blood pressure less than 130/80. Further adjustment can be done by his PCP. Hold medication if blood pressure systolic less than 110. Patient with mild acute renal sufficiency likely dehydration. Recommend to maintain 1500 cc/day fluid restriction. Maintain adequate hydration. Recommend to recheck labBMP in 1 week to monitor his progress. Patient with chronic pain and neuropathy. At discharge patient may continue with gabapentin 600 mg twice daily. Recommend follow-up with pain management to further address his condition. Patient with anxiety. Patient takes Xanax at night. Recommend to wean off [place] ax. This can be done with the help of his PCP. Vital Signs/Physical Exam: Temp Pulse Resp BP Pulse Ox 97.3 F 73 16 104/58 L 98 10/04/20 08:00 10/04/20 08:00 10/04/20 08:00 10/04/20 08:00 10/04/20 08:00 General: Alert, In no apparent distress, Oriented x3, Cooperative HEENT: Atraumatic Neck: Supple Respiratory: Clear to auscultation bilaterally, Normal air movement Cardiovascular: Normal pulses, Regular rate/rhythm Gastrointestinal: Normal bowel sounds, Non-distended Musculoskeletal: No erythema, No tenderness, No warmth Integumentary: Other (Slight deviation to the left acromium joint ) Neurological: Normal speech, Normal strength at 5/5 x4 extr, Normal tone, Normal affect Laboratory Data at Discharge: WBC 8.80 K/uL (4.3-10.9) 10/04/20 05:48 Hgb 13.2 g/dL (13.6-17.9) L 10/04/20 05:48 Hct 39.0 % (39.6-49.0) L 10/04/20 05:48 Plt Count 195 K/uL (152-406) 10/04/20 05:48 PT 11.6 SECONDS (9.5-12.5) 10/04/20 05:48 INR 1.01 10/04/20 05:48 APTT 35.1 SECONDS (24.3-36.9) 10/04/20 05:48 Sodium 137 mmol/L (136-145) 10/04/20 05:48 Potassium 4.4 mmol/L (3.5-5.1) 10/04/20 05:48 BUN 18 mg/dL (7-18) 10/04/20 05:48 Creatinine 1.00 mg/dL (0.55-1.3) 10/04/20 05:48 Glucose 82 mg/dL (74-106) 10/04/20 05:48 Magnesium 2.6 mg/dL (1.8-2.4) H 10/03/20 13:02 Total Bilirubin 0.3 mg/dL (0.2-1.0) 10/04/20 05:48 AST 12 U/L (15-37) L 10/04/20 05:48 ALT 12 U/L (12-78) 10/04/20 05:48 Alkaline Phosphatase 81 U/L (45-117) 10/04/20 05:48 Lipase 384 U/L (73-393) 10/03/20 13:02 Home Medications: Alprazolam [Xanax] 1 tab PO BEDTIME 10/04/20 Gabapentin 1 tab PO BID 10/04/20 Levetiracetam [Keppra] 1 tab PO DAILY 10/04/20 lisinopriL [Lisinopril] 1 tab PO DAILY 10/04/20 Physician Discharge Instructions: Patient presented after a fall. Patient with history of seizure disorder. Patient also has chronic anterior dislocation of the left humeral head with nondisplaced subacute fracture of the left acromium. Orthopedics was consulted. No intervention was required since this is a chronic condition. Patient may follow-up with orthopedics as an outpatient to further address. Patient may continue with a sling at home at discharge. Patient with underlying seizure disorder. Compliance addressed in detail. Patient will continue with Keppra 500 mg daily. Recommend follow-up with neurology to further monitor and adjust medication. As recommended previously no heavy lifting, pushing or pulling. Recommend no driving, swimming or operating heavy equipment. Patient with CAD, chronic CHF and hypertension. At discharge patient may continue with lisinopril 20 mg daily. Recommend to monitor blood pressure daily. Recommend to maintain blood pressure less than 130/80. Further adjustment can be done by his PCP. Hold medication if blood pressure systolic less than 110. Patient with mild acute renal sufficiency likely dehydration. Recommend to maintain 1500 cc/day fluid restriction. Maintain adequate hydration. Recommend to recheck labBMP in 1 week to monitor his progress. Patient with chronic pain and neuropathy. At discharge patient may continue with gabapentin 600 mg twice daily. Recommend follow-up with pain management to further address his condition. Patient with anxiety. Patient takes Xanax at night. Recommend to wean off Xanax. This can be done with the help of his PCP. Diet: AHA Activity: Fall precautions Followup: Unknown,U [Primary Care Provider] - Time spent managing pt's care (in minutes): 55
--- NOTE | 2020-10-04 11:41 | RAD REPORT ---
EXAM DESCRIPTION: MRI - Brain W/Wo Cont - 10/04/2020 11:03 am CLINICAL HISTORY: seizure COMPARISON: Head C Spine Cap Wo Con dated 10/03/2020 TECHNIQUE: Sagittal and axial T1-weighted images were obtained. Axial PD/heavily T2-weighted and T2- FLAIR images were obtained along with axial DWI/ADC mapping sequences. Coronal T1 weighted and heavi ly T2 weighted sequence obtained. Axial and coronal post-contrast T1-weighted images were also obtai dale. A 17 ml Multihance contrast following utilized. FINDINGS: No intracranial hemorrhage, mass or acute infarction. There is no edema or shift of midli ne structures. No extra-axial fluid collections. Skinner-matter/white matter junction is preserved. Sig nal voids are seen as a normal finding in the major intracranial vessels. T2 weighted imaging shows scattered areas of hyperintense signal in the cerebral white matter. There is focally more pronounced signal abnormality in the deep periventricular white matter of each fronta l lobe extending into the genu of the corpus callosum. There is focal hypointense T1 and hyperintense T2 signal in the left-side of the genu. Frontal horn left lateral ventricle has enlarged slightly re lative to the right. Exam has underlying motion degradation on multiple sequences. This particularly affects the coronal i maging. No gross abnormality of either medial temporal lobe. Post-contrast images show normal enhancement. No dural thickening. Mastoid air cells are clear. Mucosal thickening and air-fluid levels are present in both maxillary si nuses with mucosal thickening in the ethmoid and frontal sinuses. No sella or supra sella abnormality. No globe or orbital content acute finding. IMPRESSION: No acute infarction seen. No mass, hemorrhage or acute intracranial finding. Patient has chronic ischemic change in the cerebral white matter with focally more prominent chronic ischemic changes in the deep periventricular white matter are of each frontal lobe in the genu of the corpus callosum. There is evidence for old infarction change involving the left-side genu of the cor pus callosum and adjacent deep periventricular frontal lobe white matter. Other than the genu corpus callosum and deep frontal lobe ischemic change, no areas seen as possible seizure foci. Exam has motion degradation limitation. No enhancement abnormalities.
[2020-10-04 12:01] VITALS: BP 123/70; TEMP 97.4
[2020-10-04] MEDS ORDERED: GABAPENTIN 300 MG CAP PO SCH (21:00)
--- NOTE | 2020-10-05 01:18 | CON ---
Reason For Consultation: Consultation called because of seizure and fall. History Of Present Illness: Mr. Leblanc is a 54-year-old right-handed patient, who came to [facility] after a seizure and falling. He did have an episode actually about a week prior to coming to the hospital and suffered a scalp laceration. He was reportedly taking his antiepilepti c medications as prescribed, but stopped Xanax. He did have a right shoulder fracture and was evalua roseann by Dr. Lewis. Since hospitalization, the patient had no additional seizure-like episodes. Hi s brain MRI identified no acute ischemic or hemorrhagic change, however, there was chronic small vess el ischemic disease in the deep periventricular white matter of each frontal lobe areas and the genu of the corpus callosum. 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 No areas of possible abnormalities consistent with a potenti al seizure focus was identified. Laboratory studies showed essentially unremarkable complete blood count with differential. Coagulati on panel was normal. Chemistries remarkable for elevated creatinine of 1.53, BUN 24, magnesium eleva roseann to 2.6, calcium normal. Liver function studies normal. Urinalysis unremarkable. Toxicology was positive for benzodiazepines. COVID-19 was negative. The patient does admit in the past of heavy alcohol use, but says no recent alcohol consumption. Past Medical History: Hypertension, congestive heart failure, COPD, peripheral vascular disease, lef t partial and right partial foot amputation, history of osteomyelitis, history of drug and alcohol al tucker with tobacco abuse, gastroesophageal reflux disease. Allergies: NO KNOWN DRUG ALLERGIES. Home Medications: Minocycline and Bactrim. Family History: Positive for cancer in father and mother. Social History: Smokes 9 cigarettes a day. The patient drank heavily in the past, but more recent a lcohol use is less. The patient lives in a trailer. Review of Systems: Aside from mentioned, no recent fevers, chills, nausea, vomiting, myalgias, arthralgias. Other than mentioned, no other positives on a 10 point systems review. Physical Examination: Vital Signs: Blood pressure 122/70, pulse 82, respiratory rate 16, temperature 97.4, oxygen saturati on 98% on room air. Weight pounds, height 5 feet 6 inches, BMI 22.3. General: Mr. Leblanc is lying in bed. He appears disheveled. He is in no acute distress. HEENT: He is normocephalic, atraumatic. Sclerae anicteric. Oropharynx is moist and pink. Neck: Supple. Chest: Clear. Heart: Regular. Extremities: No significant clubbing, cyanosis, or edema. Neurological: He has no obvious focal deficits in the face, arm, and leg in terms of strength, sensa tion, coordination. He has a slightly unsteady gait. Assessment: Mr. Leblanc is a 54-year-old patient with heavy alcohol use and history of multiple comor bid conditions and has had seizures in the past. He is on Keppra 500 mg twice daily. He has receive d ceftriaxone for possible systemic infection. Currently, no clear evidence of infection. Does have a history of drug and alcohol abuse. He has been on Klonopin, which was recently decreased and like ly a contributing factor for the patient's most recent seizure. His brain MRI shows no acute ischemi c change, but he has prominent chronic small vessel ischemic disease, likely much more than the patie nt should for his age. Plan: 1.Aspirin 81 mg daily. 2.Stop alcohol and tobacco abuse. 3.Stop drug abuse. 4.Continue with Keppra as indicated. 5.The patient did have an EEG that will be followed outpatient. 6.He may be discharged home. SAM/RENATO Voice ID: [id number] Report ID: [id number]
[2020-10-05] MEDS ORDERED: levETIRAcetam 500 MG TAB PO SCH (09:00)
== END 2020-10-04 14:24 | disposition home or self-care (01) ==
LOC: ER 12:25 → ERHOLD 16:33 → 4TH 22:28
PROVIDERS: ADMIT Hospitalist; ATTEND Family Medicine
DX: G40.909 Epilepsy, unspecified, not intractable, without status epilepticus (principal); M24.412 Recurrent dislocation, left shoulder; S42.125 Nondisplaced fracture of acromial process, left shoulder; I25.10 Atherosclerotic heart disease of native coronary artery without angina pectoris; F41.9 Anxiety disorder, unspecified; G89.29 Other chronic pain; Z20.822 Contact with and (suspected) exposure to COVID-19; G62.9 Polyneuropathy, unspecified; F10.10 Alcohol abuse, uncomplicated; I11.0 Hypertensive heart disease with heart failure; I50.30 Unspecified diastolic (congestive) heart failure; N28.9 Disorder of kidney and ureter, unspecified; J44.9 Chronic obstructive pulmonary disease, unspecified; I73.9 Peripheral vascular disease, unspecified; Z89.432 Acquired absence of left foot; K21.9 Gastro-esophageal reflux disease without esophagitis; Z89.411 Acquired absence of right great toe; Z89.421 Acquired absence of other right toe(s); F17.210 Nicotine dependence, cigarettes, uncomplicated
CPT/HCPCS: 93005; 85025 ×2; 80048; 36415; 83735; 82550 ×2; 85610 ×2; 80076; 80307 ×8; 85730; 81003; 84484; 82553; 83690; 80053; 83880; 70450; 71250; 72125; 71045; 73030; 70553; 99285; U0003; A9577; J3411; J3010 ×2; J2270; J1953 ×2; J0696; J7040; J7030 ×2; J2405 ×3; G0378

== ENCOUNTER 2020-11-30 16:15 | Observation (INO) | payer OTHER ==
--- OUTSIDE RECORDS SUMMARY | 2020-11-30 16:28 | XMS REPORT | Continuity of Care Document ---
:1965 Author Organization [facility] t Address [address] [place] [address] [place] [address] Care Team Providers Name Role Phone Janette [...] 00:00:00 - Medical MEDICARE HMO Center [id number] [id number] Contracted Problems Condition Condition Condition Status Onset [...] Mem oria 06-04 09:38:00 l ANEMIA 00:00: [place] 00 Active 04/04/2016 [facility] OTHER Diagnosis Active 2015-052016-03-13 Mem oria 19:39:00 l OTHER 00:00: [place] 00 Active 03/13/2016 [facility] FOOT Diagnosis Active 2016-02-12 Mem oria GANGRENE 01-30 20:08:00 l FOOT 00:00: [place] GANGRENE 00 Active 01/31/2016 [place] LEFT FOOT Diagnosis Active 2016-01-31 Memoria SORES 01-30 22:38:00 l LEFT 00:00: [place] FOOT SORES 00 Active 01/31/2016 [facility] CP Diagnosis Active 2015-02-15 Mem oria 02-15 16:10:00 l CP 00:00: [place] 00 Active 02/15/2015 [facility] CHEST PAIN Diagnosis Active 2015-02-15 Memoria 02-15 18:21:00 l CHEST 00:00: [place] PAIN 00 Active 02/15/2015 [place] LEFT WRIST Diagnosis Active 2015-02-09 Memoria PAIN 9-15 16:02:00 l LEFT 00:00: [place] WRIST PAIN 00 Active 02/09/2015 [facility] AMS Diagnosis Active 2015-01-23 Mem oria 01-23 15:36:00 l AMS 00:00: [place] 00 Active 01/23/2015 [facility] WOUND Diagnosis Active 2014-02-12 Mem oria INFECTION 10-20 13:06:00 l V WOUND 00:00: [place] NECFAS;CHR INFECTION 00 ONIC V OSTEOMY NECFAS;CHR ONIC OSTEOMY Active 10/20/2013 [facility] Acute Problem Active 2016-04-08 Memor ia osteomyeli 03:42:03 l tis Acute [place] (disorder) osteomyeli tis (disorder) Active Problem 04/08/2016 [facility] Congestive Problem Active 2016-04-08 M emoria heart 03:42:03 l failure [place] (disorder) Congestive heart failure (disorder) Active Problem 04/08/2016 [facility] Hypertensi Problem Active 2016-04-08 M emoria ve 03:42:03 l disorder, Kai systemic Hypertensi arterial ve (disorder) disorder,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 (disorder) Active Problem 04/08/2016 [facility] Bronchitis Problem Active 2016-04-08 M emoria (disorder) 03:42:03 l [place] Bronchitis (disorder) Active Problem 04/08/2016 [facility] Chronic Problem Active 2016-04-08 Ed bandar obstructiv 03:42:03 l e lung Chronic [place] disease obstructiv (disorder) e lung disease (disorder) Active Problem 04/08/2016 [facility] History of Problem Active 2016-04-08 M emoria - 03:42:03 l infectious History Her cook disease of - (context-d infectious ependent disease category) (context-d ependent category) Active Problem 04/08/2016 [facility] History of Problem Active 2016-04-08 M emoria amputation 03:42:03 l of lesser History Herm delisa toe of (situation amputation ) of lesser toe (situation ) Active Problem 04/08/2016 [facility] History of Problem Active 2016-04-08 emoria - 03:42:03 l cardiovasc History Her cook ular of - disease cardiovasc (context-d ular ependent disease category) (context-d ependent category) Active Problem 04/08/2016 [facility] Benign Problem Active 2016-04-08 Memor ia prostatic 03:42:03 l hyperplasi Benign Herm delisa a prostatic (disorder) hyperplasi a (disorder) Active Problem 04/08/2016 [facility] Epistaxis Problem Active 2016-04-08 Me moria (disorder) 03:42:03 l [place] Epistaxis (disorder) Active Problem 04/08/2016 [facility] CELLULITIS Diagnosis Active 2014-02-12 Memoria OF FOOT 13:06:00 l [place] CELLULITIS OF FOOT Active [facility] AC Diagnosis Active 2014-02-12 Mem oria OSTEOMYELI 13:06:00 l TIS-UNSPEC AC Raudel n OSTEOMYELI TIS-UNSPEC Active [facility] CHEST PAIN Diagnosis Active 2015-02-15 Memoria NOS 18:21:00 l CHEST [place] PAIN NOS Active [facility] GANGRENE, Diagnosis Active 2016-02-12 Memoria NOT 20:08:00 l ELSEWHERE [place] CLASSIFIED GANGRENE, NOT ELSEWHERE CLASSIFIED Active [facility] ANEMIA, Diagnosis Active 2016-04-05 Me moria UNSPECIFIE 09:38:00 l D ANEMIA, [place] UNSPECIFIE D Active [facility] History of Past Illness Condition Condition Condition Status Onset Resolution Last Treating Co mments Source Name Details Category Date Date Treatment Clinician Date Discharge Problem 2015-052016-03-17 2016-03-17 Memoria Diagnosis: 0-18 03:02:37 03:02:37 l Acute on 05:00: [place] chronic Discharge 00 renal Diagnosis: failure Acute on chronic renal failure 03/14/2016 03/17/2016 [facility] Discharge Problem 2015-052016-03-17 2016-03-17 Memoria Diagnosis: 0-18 03:02:37 03:02:37 l Anemia 05:00: [place] Discharge 00 Diagnosis: Anemia 03/14/2016 03/17/2016 [facility] Discharge Problem 2015-052016-03-17 2016-03-17 Memoria Diagnosis: 0-18 03:02:37 03:02:37 l Post-opera 05:00: Raudel n tive pain Discharge 00 Diagnosis: Post-opera tive pain 03/14/2016 03/17/2016 [facility] Discharge Problem 2015-052016-03-17 2016-03-17 Memoria Diagnosis: 0 03:02:37 03:02:37 l Acute 05:00: [place] hypokalemi Discharge 00 a Diagnosis: Acute hypokalemi a 03/14/2016 03/17/2016 [facility] Discharge Problem 2015-02-19 2015-02-19 Memoria Diagnosis: 02-16 07:51:51 07:51:51 l Hyperlipid 14:36: Raudel n emia Discharge 09 Diagnosis: Hyperlipid emia 02/16/2015 02/19/2015 [facility] Discharge Problem 2015-02-19 2015-02-19 Memoria Diagnosis: 02-16 07:51:51 07:51:51 l Hypertensi 14:36: Raudel n on Discharge 00 Diagnosis: Hypertensi on 02/16/2015 02/19/2015 [facility] Discharge Problem 2015-02-19 2015-02-19 Memoria Diagnosis: 02-16 07:51:51 07:51:51 l Angina 14:35: [place] pectoris Discharge 54 Diagnosis: Angina pectoris 5 02/19/2015 [facility] Discharge Problem 2015-02-12 2015-02-12 Memoria Diagnosis: 02-09 09:59:31 09:59:31 l Wrist 05:00: [place] sprain Discharge 00 Diagnosis: Wrist sprain 02/09/2015 02/12/2015 [facility] Discharge Problem 2015-01-26 2015-01-26 Memoria Diagnosis: 01-23 02:07:27 02:07:27 l Epileptic 05:00: [place] seizure, Discharge 00 generalize Diagnosis: d Epileptic seizure, generalize d 01/23/2015 01/26/2015 [facility] Discharge Problem 2015-01-26 2015-01-26 Memoria Diagnosis: 01-23 02:07:27 02:07:27 l Cerebral 05:00: [place] seizure Discharge 00 Diagnosis: Cerebral seizure 01/23/2015 01/26/2015 [facility] Allergies, Adverse Reactions, Alerts Allergy Allergy Status Severity Reaction(s) Onset Inactive Treating Comm ents Source Name Type Date Date Clinician No Known DA Active U 2018-05 [facility] Allergie 0-10 [facility] 00:00: Health 00 are [facility] Morphine Propensi Active Other (See 2016-05 Headache [facility] ty to Comments) 06-16 [facility] - adverse 00:00: Medical reaction 00 [place] s morphine morphine Active Thomas Quinn Social History Social Habit Start Date Stop Date Quantity Comments Source Sex Assigned At [facility] Cigarettes smoked 2017-04-16 2017-04-16 [facility] - current (pack per 00:00:00 00:00:00 [facility] day) - Reported Tobacco use and 2017-04-16 2017-04-16 Current user [facility] - exposure 00:00:00 00:00:00 [facility] Social History 2013-10-21 2013-10-21 [facility] Myriam joann 05:36:39 05:36:39 Smoking Status Start Date Stop Date Source Current every day smoker 2017-04-16 00:00:00 [facility] Medications Ordered Filled Start Stop Current Ordering Indication Dosage Frequency Signature Comments Components Source Medication Medication Date Date Medication? Clinician (SIG) Name Name acetaminoph 2020- No 1{tbl} Take [address] en-codeine 01-01 tablet by Beau jamil - (TYLENOL 00:00: 23:59 mouth Medical #3) [...] I St HFA 90 4- puff by Blank - mcg/actuati 00:00: mouth via M edical on inhaler 00 inhaler 3 Cent er (three) times daily as needed for Shortness of Breath. lisinopril Yes 10mg QD Take [address] (PRINIVIL,Z 4-01 by mouth Luke s - ESTRIL) 10 00:00: daily. Medic al MG tablet 00 [place] amLODIPine Yes 10mg QD Take [address] (NORVASC) 08-26 by mouth [facility] - 10 MG 00:00: daily. Medical tablet 00 Center Sodium 2015-05 Yes IVPB, 150 Memori a Chloride 1-09 ml/hr, l 0.9% IV 14:00: PRN, Start Herm delisa 00 date: 04/05/16 8:00:00 [employer], Duration: 30, 1,000 ml EPINEPHrine 2015-05 Yes Notes: Memoria - MEDICATION l 13:22: WASTE [place] Product Size: 1 mg Product Wasted: ___ mg Solu-CORTEF 2015-05 Yes Notes: Ed bandar - (Same as: l 13:22: Solu-JOHN [place] 00 F) Benadryl 2015-05 Yes Notes: Memoria 06-05 (Same as: l 13:22: Benadryl) [place] Sodium 2015-05 Yes IV, 0 Memoria Chloride 1-09 ml/hr, l 0.9% IV 13:21: PRN, PRN Raudel n 00 Blood Transfusio n, Start date: 04/05/16 7:21:00 [employer] 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 Kai (Same as: Tylenol) Acetaminoph 2015-05 No Notes: Ed bandar en 325 MG / 0-18 (Same as: l Hydrocodone 11:34: Vesta Denita nn Bitartrate 00 325/5) Do 5 MG Oral not exceed Tablet 4gm/day of [Vesta acetaminop 5/325] hen. Acetaminoph 2015-05 No 1 [...] Memoria 0-18 Same as: l 04:18: Dilaudid [place] 00 Sodium 2015-05 No 500 mL, Memoria Chloride 0-18 500 ml/hr, l 0.154 04:18: Infuse [place] MEQ/ML 00 Over: 1 Injectable hr, Route: Solution IV, 500, Drug form: INJ, ONCE, Priority: STAT, Dosing Weight 98.636 kg, Start date: 03/13/16 23:18:00 CDT, Duration: 1 doses or times, Stop date: 03/13/16 23:18:00 CDT Oxycodone Yes 15 mg = 3 Mem oria Hydrochlori 23 tab, PO, l de 5 MG 17:22: [...] 02-16 cap, PO, l capsule 12:57: After [place] 00 Dinner, 0 Refill(s) fluconazole Yes 200 mg = 2 Memoria 100 mg oral 02-16 tab, PO, l tablet 12:57: [id number], 0 Denita nn 00 Refill(s) pantoprazol Yes 40 mg = 1 M emoria e 40 mg 02-16 tab, PO, l oral 12:57: Before Kai enteric 00 Breakfast, coated 0 tablet Refill(s) Acetaminoph Yes 1 tab, PO, Memoria en 325 MG / 02-16 Q4H, PRN l Hydrocodone 12:57: Pain Score [place] Bitartrate 00 1-3, 0 5 MG Oral [...] INJ (ANES) 02-11 Total l 12:55: Volume: [place] 00 1,000, Start date: 02/12/16 7:55:00 CDT, Stop date: 02/12/16 8:55:00 CDT Ceftriaxone No Notes: Ed bandar 02-10 (Same As: l 18:00: Rocephin). Kai 00 Use with 100 mL NS and infuse over 30 min MEDICATION WASTE Product Size: 2000 mg Product Wasted: ___ mg Dilaudid No Notes: Memoria 02-10 Same as: l 13:37: Dilaudid [place] 00 vancomycin No 2000 mg: Me moria 02-10 infuse l 11:00: over 2.5 [place] 00 hours metoprolol No Notes: Memor ia 15 (Same as: l 14:00: Toprol XL) May split tab, but do not crush. Alprazolam No Notes: Memor ia 1 MG Oral 02-09 With food l Tablet 13:19: or milk [place] [Xanax] 00 (Same as: Xanax) vancomycin No 2000 mg: [...] Dosing per l RPh 19:51: RPh, ., Drug form: MISC, Route: MISC, PRN, PRN Other -See Comment, 02/09/16 14:51:00 CDT, Duration: 30 day, Stop date: 03/10/16 14:50:00 CDT Dilaudid No Notes: Memoria 02-08 Same as: l 18:01: Dilaudid [place] 00 Sodium No 500 mL, Memoria Chloride [...] e 02-08 Tablet l 14:00: should not [place] 00 be chewed or crushed. (Same as: Protonix) Simvastatin No Notes: Ed bandar 02-08 (Same as: l 02:00: Zocor) [place] 00 Cefuroxime No 1.5 gm, Ed bandar 02-08 Route: l 02:00: IVPB, [place] 00 [id number], Dosing Weight 96.023, kg, Start date: 02/08/16 21:00:00 CDT, Duration: 3 doses or times, Stop date: 02/09/16 13:00:00 CDT Neutra-Phos No Notes: Ed bandar 02-08 Same as: l 01:04: Phos-Nak [place] 00 Mix 1 packet with 75 mL water or juice. Each packet has 160mg of sodium, 280mg of potassium, and 250mg of phosphorus Non-Formu puneet Item potassium No Notes: Memori a phosphate + 02-08 (Same as: l sodium 01:04: K [place] chloride 00 Phosphate. 0.9% 500 ml ) 1 mMol INJ 500 mL phoshate has 1.47 mEq potassium Infuse over 4 hours potassium No Notes: Memori a phosphate + 02-08 (Same as: l sodium 01:04: K [place] chloride 00 Phosphate. 0.9% INJ ) 1 mMol 250 mL phoshate has 1.47 mEq potassium Infuse over 4 hours Magnesium No Notes: Memori a Oxide 02-08 (Same as: l 01:04: Mag-Ox [place] 00 400) Magnesium oxide 345dz=991l g elemental magnesium Dose=____m g magnesium oxide (___mg elemental magnesium) Magnesium No Notes: Memori a Sulfate 02-08 WASTE: F/P l 01:04: - Sink; E [place] 00 - Municipal Trash Bin potassium No Notes: Memori a chloride 02-08 (Same as: l 01:04: Potassium [place] 00 Chloride) sodium No 15 mmol, 5 Memor ia phosphate + 9-14 mL, Route: l sodium 01:04: IVPB, PRN, Denita nn chloride 00 Dosing 0.9% INJ Weight 250 mL 96.023, kg, PRN Abnormal Lab Result, Start date: 02/08/16 20:04:00 CDT, Duration: 30 day, Stop date: 03/09/16 20:03:00 CDT, FOR ICU USE ONLY sodium No 45 mmol, Memoria phosphate + -14 15 mL, l sodium 01:04: Route: Kai [...] WASTE: F/P l 01:04: - Sink; E [place] 00 - Municipal Trash Bin Albuterol No [...] Memoria 02-08 (Same as: l 01:04: Colace) Kai 00 (Do Not Crush) Glucagon No 1 mg, Memoria 02-08 Route: IM, l 01:04: Drug form: [place] 00 PDR/INJ, PRN, Dosing Weight 96.023, kg, PRN Blood Glucose Results, Start date: 02/08/16 20:04:00 CDT, Duration: 30 day, Stop date: 03/09/16 20:03:00 CDT Acetaminoph No Notes: Ed bandar en 325 MG / 02-08 (Same as: l Hydrocodone 01:04: Vesta Denita nn Bitartrate 00 325/5) Do 5 MG Oral not exceed Tablet 4gm/day of acetaminop hen. Acetaminoph No Notes: Do M emoria en 02-08 not exceed l 01:04: 4 gm/day. [place] 00 (Same as: Tylenol) D5W 1/2NS + No Notes: Ed bandar KCL 20mEq/L 02-08 PREMIX IV l 1000ml 01:04: - Do Not Kai (Premix) 00 Alter 1,000 mL WASTE: F/P - Sink; E - Municipal Trash Bin Ondansetron No Notes: Ed bandar 02-07 (Same as: l 14:59: Zofran) Kai 00 MEDICATION WASTE Product Size: 4 mg Product Wasted: ___ mg Promethazin No 6.25 mg, Me moria e 02-07 25 mL, l 14:59: Route: Kai 00 IVPB, Drug form: SOLN, ONCE, Dosing Weight 96.023, kg, PRN Nausea & Vomiting, Start date: 02/08/16 9:59:00 CDT Flumazenil No Notes: Memor ia 13 (Same as: l 14:59: Romazicon) Naloxone No [...] ia 02-07 Child:10-2 l 12:00: 0mg/kg ,<= 600mg/day. Protect from light (Same as: Rifadin) Lidocaine No 5 mg, Memoria Hydrochlori 02-07 Route: l de 10 MG/ML 12:00: INTRADERM, [place] Injectable Dosing Solution Weight 98.636, kg, ONCALL, Start date: 02/08/16 7:00:00 CDT, Duration: 30 day, Stop date: 03/09/16 6:59:00 CDT Lactated No 1,000 mL, Ed bandar Ringers 02-07 Rate: 40 l 1,000 mL 11:31: ml/hr, Infuse over: 25 hr, Route: IV, Dosing Weight 98.636 kg, Total Volume: 1,000, Start date: 02/08/16 6:31:00 CDT, Duration: 30 day, Stop date: 03/09/16 6:30:00 CDT Roxicodone No 15 mg, Memor ia 02-06 Route: PO, l 17:00: Drug form: [place] 00 TAB, Q4H, Start date: 02/07/16 12:00:00 CDT, Stop date: 03/08/16 8:00:00 CDT Roxicodone No Notes: Memor ia 02-06 (Same as: l 15:35: Roxicodone ) oxyCODONE [...] moria 02-01 infuse l 20:00: over 2.5 hours atorvastati No Notes: Ed bandar n 02-01 (Same as: l 02:00: Lipitor) Vancomycin No 1 ea, Memori a 01-31 Route: l 20:00: MISC, Dosing Weight 97.273, kg, ONCALL, Start date: 02/01/16 15:00:00 CDT, Duration: 1 doses or times, Pharmacy to dose Acetaminoph No Notes: Do M emoria en 325 MG / 9-06 not exceed l Hydrocodone 18:10: 4gm/day of [place] Bitartrate 00 acetaminop 10 MG Oral hen. Tablet (Same as: [Vesta Vesta 10/325] 325/10) Tylenol No Notes: Do Memor ia 01-31 not exceed l 18:02: 4 gm/day. Kai 00 (Same as: Tylenol) Vancomycin No 2001 mg: Me moria 01-31 infuse l 18:00: over 2.5 00 hours MEDICATION WASTE Product Size: 1000 [...] ia 01-31 (Same as: l 14:00: Neurontin) 00 24 HR No Notes: Memoria Metoprolol [...] as: l / 13:22: Duoneb) Ipratropium 00 [place] 0.167 MG/ML Inhalant Solution Zofran No Notes: Memoria 01-31 (Same as: l 06:24: Zofran) [place] 00 MEDICATION WASTE Product Size: 4 mg Product Wasted: ___ mg Dilaudid No Notes: Memoria 01-31 Same as: l 06:23: Dilaudid [place] 00 Acetaminoph No 1 tab, PO, Memoria en 300 MG / 01-31 BID, PRN l Codeine 04:53: pain, # 28 Herm delisa Phosphate 00 tab, 0 30 MG Oral Refill(s) Tablet lisinopril Yes 10 mg = 1 Me moria 10 mg oral 01-31 tab, PO, l tablet 04:53: Daily, # [place] 00 30 tab, 0 Refill(s) metoprolol Yes [...] tab, PO, l tablet 04:53: Daily, # [place] 00 30 tab, 0 Refill(s) atorvastati Yes [...] tab, PO, l Tablet 04:53: Daily, # [place] 00 30 tab, 0 Refill(s) cilostazol Yes [...] (Same as: l tazobactam 22:57: Zosyn) Denita Dosing based on Piperacill in component MEDICATION WASTE Product Size: 3375 mg Product Wasted: ___ mg Vancomycin No 2001 mg: Me moria 01-30 infuse l 22:57: over 2.5 00 hours MEDICATION WASTE Product Size: 1000 mg Product Wasted: ___ mg Sodium No 1,000 mL, Memori a Chloride 01-30 2,000 l 0.154 22:04: ml/hr, [place] MEQ/ML 00 Infuse Injectable Over: 30 Solution minutes, Route: IV, 1,000, Drug form: INJ, ONCE, Priority: STAT, Dosing Weight 95 kg, Start date: 01/31/16 17:04:00 CDT, Duration: 1 doses or times, Stop date: 01/31/16 17:04:00 CDT Acetaminoph No Notes: Do M emoria en 325 MG / 01-30 not exceed l Hydrocodone 21:57: 4gm/day of [place] Bitartrate 00 acetaminop 10 MG Oral hen. Tablet (Same as: [Vesta Vesta 10/325] 325/10) Amlodipine Yes 10 mg, PO, [...] / 02-16 (Same as: l Hydrocodone 04:39: Vesta Denita nn Bitartrate 00 325/5) Do 5 MG Oral not exceed Tablet 4gm/day of [Vesta acetaminop 5/325] hen. Tessalon No Notes: Memoria Perles 02-16 (Same As: l 01:00: Tessalon Perles) "Do Not Crush" Acetaminoph Yes 1 tab, PO, Memoria en 325 MG / 02-16 Q12H, PRN l Hydrocodone 00:48: Pain, # 30 [place] Bitartrate 00 tab, 0 5 MG Oral Refill(s) Tablet [Vesta 5/325] Alprazolam Yes 0.25 mg = Me [...] Ed bandar 02-15 RT l 23:03: DOCUMENTAT [place] ION (Same as:Xopenex ) Non-Formul tamara Acetaminoph No Notes: Do M emoria en 325 MG / 02-15 not exceed l Hydrocodone 23:03: 4gm/day of [place] Bitartrate acetaminop 10 MG Oral hen. Tablet (Same as: [Vesta Vesta 10/325] 325/10) Albuterol No Notes: Memori a 0.833 MG/ML 02-15 (Same as: l / 20:51: Duoneb) Kai Ipratropium 00 [place] 0.167 MG/ML Inhalant Solution [DuoNeb] Aspirin No Notes: Memoria 02-15 Take with l 20:00: food. [place] 00 tramadol Yes 100 mg = 2 Mem oria hydrochlori 02-09 tab, PO, l de 50 MG 21:05: Q6H, PRN Denita nn Oral Tablet 00 pain, X 3 [Ultram] day, # 20 tab, 0 Refill(s) Tylenol No Notes: Do Memor ia 02-09 not exceed l 20:47: 4 gm/day. [place] 00 (Same as: Tylenol) Sodium No 1,000 mL, Memori a Chloride 01-23 1,000 l 0.154 19:39: ml/hr, [place] MEQ/ML 00 Infuse Injectable Over: 1 Solution hr, Route: IV, 1,000, Drug form: INJ, ONCE, Priority: STAT, Dosing Weight 104.545 kg, Start date: 01/23/15 14:39:00, Duration: 1 doses or times, Stop date: 01/23/15 14:39:00 Saline No Notes: Memoria Flush 0.9% 01-23 preservati l 19:39: ve free. Kai Vital Signs Vital Name Observation Time Observation Value Comments Source Systolic blood 2020-01-02 14:29:00 147 mm[Hg] [facility] Diastolic blood 2020-01-02 14:29:00 79 mm[Hg] [facility] Heart rate 2020-01-02 14:29:00 91 /min [facility] Respiratory rate 2020-01-02 14:29:00 18 /min [facility] Oxygen saturation in 2020-01-02 14:29:00 95 /min [facility] Arterial blood by Medical Ce nter Pulse oximetry Body weight 2020-01-02 06:36:00 85.276 kg [facility] BMI 2020-01-02 06:36:00 24.80 kg/m2 [facility] Body temperature 2020-01-02 06:34:[address] [facility] Systolic (mm Hg) 2016-04-05 18:57:00 Ed riaissac [place] Diastolic (mm Hg) 2016-04-05 18:57:00 Mem orial [place] Respitory Rate 2016-04-05 18:57:00 Locoori al [place] Heart Rate 2016-04-05 18:57:00 [facility] [place] Systolic (mm Hg) 2016-04-05 18:27:00 Ed rial [place] Diastolic (mm Hg) 2016-04-05 18:27:00 Mem orial [place] Respitory Rate 2016-04-05 18:27:00 Memori al Kai Heart Rate 2016-04-05 18:27:00 [facility] [place] Respitory Rate 2016-04-05 17:57:00 Memori al Kai Heart Rate 2016-04-05 17:57:00 [facility] [place] Systolic (mm Hg) 2016-04-05 17:57:00 Ed rial [place] Diastolic (mm Hg) 2016-04-05 17:57:00 Mem orial [place] Temperature Oral (F) 2016-04-05 17:35:00 97.7 F [facility] [place] Temperature Oral (F) 2016-04-05 17:27:00 97.7 F [facility] [place] Temperature Oral (F) 2016-04-05 16:22:00 98.2 F [facility] [place] Weight 2016-04-05 13:20:00 [facility] [place] BMI Calculated 2016-04-05 13:20:00 Memori al [place] Height 2016-04-05 13:20:00 185 cm [facility] [place] Respitory Rate 2016-03-14 11:00:00 Memori al [place] Systolic (mm Hg) 2016-03-14 11:00:00 Ed rial Kai Diastolic (mm Hg) 2016-03-14 11:00:00 Mem orial [place] Systolic (mm Hg) 2016-03-14 10:00:00 Ed rial [place] Diastolic (mm Hg) 2016-03-14 10:00:00 Mem orial [place] Respitory Rate 2016-03-14 10:00:00 Memori al [place] Temperature Oral (F) 2016-03-14 09:00:00 98.8 F [facility] [place] Respitory Rate 2016-03-14 09:00:00 Memori al [place] Systolic (mm Hg) 2016-03-14 09:00:00 Ed rial [place] Diastolic (mm Hg) 2016-03-14 09:00:00 Mem orial [place] Temperature Oral (F) 2016-03-14 05:00:00 98.7 F [facility] [place] Heart Rate 2016-03-14 03:48:00 [facility] [place] BMI Calculated 2016-03-13 23:42:00 Memori al [place] Weight 2016-03-13 23:42:00 [facility] [place] Temperature Oral (F) 2016-03-13 23:42:00 98.6 F [facility] [place] Height 2016-03-13 23:42:00 185.42 cm [facility] [place] Heart Rate 2016-03-13 23:42:00 [facility] [place] Respitory Rate 2016-02-18 19:19:00 Memori al [place] Systolic (mm Hg) 2016-02-18 19:19:00 Ed rial Kai Diastolic (mm Hg) 2016-02-18 19:19:00 Mem orial [place] Heart Rate 2016-02-18 19:19:00 [facility] [place] Temperature Oral (F) 2016-02-18 19:19:00 98.8 F [facility] [place] Temperature Oral (F) 2016-02-18 15:28:00 98.3 F [facility] [place] Heart Rate 2016-02-18 15:28:00 [facility] [place] Systolic (mm Hg) 2016-02-18 15:28:00 Ed rial [place] Diastolic (mm Hg) 2016-02-18 15:28:00 Mem orial [place] Respitory Rate 2016-02-18 15:28:00 Memori al [place] Temperature Oral (F) 2016-02-18 12:40:00 98.2 F [facility] [place] Heart Rate 2016-02-18 12:40:00 [facility] [place] Systolic (mm Hg) 2016-02-18 12:40:00 De rial [place] Diastolic (mm Hg) 2016-02-18 12:40:00 Mem orial [place] Respitory Rate 2016-02-18 12:40:00 Memori al [place] Weight 2016-02-08 11:10:00 [facility] [place] BMI Calculated 2016-02-08 10:24:00 Memori al [place] Weight 2016-02-08 10:24:00 [facility] [place] Height 2016-02-08 10:24:00 185.42 cm [facility] [place] Weight 2016-02-01 04:41:00 [facility] [place] BMI Calculated 2016-02-01 04:41:00 Memori al [place] Height 2016-02-01 04:41:00 185.42 cm [facility] [place] Height 2016-01-31 19:21:00 185.42 cm [facility] [place] BMI Calculated 2016-01-31 19:21:00 Memori al [place] Respitory Rate 2015-02-16 18:18:00 Memori al [place] Temperature Oral (F) 2015-02-16 17:50:00 98.0 F [facility] [place] Respitory Rate 2015-02-16 17:50:00 Memori al [place] Heart Rate 2015-02-16 17:50:00 [facility] [place] Systolic (mm Hg) 2015-02-16 17:50:00 Ed rial [place] Diastolic (mm Hg) 2015-02-16 17:50:00 Mem orial [place] Temperature Oral (F) 2015-02-16 12:35:00 98.2 F [facility] [place] Heart Rate 2015-02-16 12:35:00 [facility] [place] Systolic (mm Hg) 2015-02-16 12:35:00 Ed rial [place] Diastolic (mm Hg) 2015-02-16 12:35:00 Mem orial [place] Respitory Rate 2015-02-16 12:35:00 Memori al [place] Temperature Oral (F) 2015-02-16 09:00:00 97.5 F [facility] [place] Systolic (mm Hg) 2015-02-16 09:00:00 Ed rial Kai Diastolic (mm Hg) 2015-02-16 09:00:00 Mem orial [place] Heart Rate 2015-02-16 09:00:00 [facility] [place] Height 2015-02-16 00:50:00 185.42 cm [facility] [place] BMI Calculated 2015-02-16 00:50:00 Memori al [place] Weight 2015-02-16 00:50:00 [facility] [place] Weight 2015-02-15 17:48:00 [facility] [place] BMI Calculated 2015-02-15 17:48:00 Memori al [place] Height 2015-02-15 17:48:00 185.42 cm [facility] Temperature Oral (F) 2015-02-09 21:12:00 98.2 F [facility] Heart Rate 2015-02-09 21:12:00 [facility] Respitory Rate 2015-02-09 21:12:00 [facility] Systolic (mm Hg) 2015-02-09 21:12:00 [facility] Diastolic (mm Hg) 2015-02-09 21:12:00 [facility] BMI Calculated 2015-02-09 20:27:00 [facility] [place] Weight 2015-02-09 20:27:00 [facility] Height 2015-02-09 20:27:00 185.42 cm [facility] Systolic (mm Hg) 2015-02-09 20:27:00 [facility] Diastolic (mm Hg) 2015-02-09 20:27:00 [facility] Heart Rate 2015-02-09 20:27:00 [facility] Respitory Rate 2015-02-09 20:27:00 [facility] Systolic (mm Hg) 2015-01-23 23:00:00 [facility] Diastolic (mm Hg) 2015-01-23 23:00:00 [facility] Systolic (mm Hg) 2015-01-23 22:00:00 [facility] [place] Diastolic (mm Hg) 2015-01-23 22:00:00 [facility] Systolic (mm Hg) 2015-01-23 21:00:00 [facility] Diastolic (mm Hg) 2015-01-23 21:00:00 [facility] [place] Respitory Rate 2015-01-23 19:15:00 [facility] Weight 2015-01-23 18:26:00 [facility] Height 2015-01-23 18:26:00 185.42 cm [facility] BMI Calculated 2015-01-23 18:26:00 [facility] [place] Respitory Rate 2015-01-23 18:26:00 [facility] [place] Heart Rate 2015-01-23 18:26:00 [facility] Temperature Oral (F) 2015-01-23 18:26:00 98.5 F [facility] Procedures Procedure Date / Time Performing Clinician Source Performed CT UPPER EXTREMITY 2020-01-02 14:15:[address] [facility] - WITHOUT IV CONTRAST LEFT [facility] XR SHOULDER LEFT COMPLETE 2020-01-02 09:56:[address] [facility] - MIN 2 VIEWS [facility] PT/APTT 2020-01-02 08:49:[address] [facility] - [facility] SARS-COV2/RT-PCR (HS & 2020-01-02 08:22:[address] [facility] - REF LABS) [facility] CBC W/PLT COUNT & AUTO 2020-01-02 08:18:00 Barbara Freitasilana WALKER [facility] COMPREHENSIVE METABOLIC 2020-01-02 08:18:00 Janette, Adeilana [facility] XR SHOULDER LEFT COMPLETE 2020-01-02 07:18:[address] [facility] - MIN 2 VIEWS [facility] PROCEDURAL SEDATION 2020-01-02 07:10:11 Janette Barbarailana WALKER [facility] Amputation of [facility] toe<sup>1</sup> Blood transfusion [facility] Plan of Care Planned Activity Planned Date Details Comments Source Future Scheduled 2020-01-[address] [facility] - Test 00:00:00 (#1) [code = [facility] INFLUENZA VACCINE (#1)] Future Scheduled 2017-05-[address] [facility] - Test 00:00:00 WELLNESS (YEAR 2 or [facility] FIRST YEAR if no IPPE) [code = MEDICARE ANNUAL WELLNESS (YEAR 2 or FIRST YEAR if no IPPE)] Future Scheduled 1999-12-[address] [facility] Test 00:00:00 (procedure) [code = [facility] 47889232] Future Scheduled [address] [facility] - Test 00:00:00 malignant neoplasm [facility] enter of colon (procedure) [code = 140080430] Encounters Start End Encounter Admission Attending Care Care Encounter Source Date/Time Date/Time Type Type Clinicians Facility Department ID 2016-04-05 2016-04-05 Outpatient SAVI Pierce [facility] [id number] 08:00:00 23:59:00 Chuy 08 Jeff 2016-03-13 2016-03-14 Outpatient SAVI Diaz [facility] [id number] 18:41:00 10:51:00 Blanche Ruiz 07 2016-01-31 2016-02-18 Outpatient SAVI Pierce [facility] [id number] 13:47:00 15:15:00 Chuy 06 Jeff 2015-02-15 2015-02-16 Outpatient SAVI Torres [facility] [id number] 12:38:00 16:20:00 Juan Mckeon 2015-02-09 2015-02-09 Outpatient Az Warner [facility] [id number] 15:20:00 16:13:00 Sundar 04 2015-01-23 2015-01-23 Outpatient Lisandra [facility] [id number] 13:23:00 18:13:00 Tim Cope 03 2013-10-31 2013-11-29 Outpatient Rosibel [facility] [id number] 08:00:00 23:59:00 Nabeel Cool 00 Results Test Description Test Time Test Comments Results Result Sourc e Comments CT, EXTREMITY, 2020-01-02 FINAL REPORT UPPER, WITHOUT 15:45:00 PATIENT ID: CONTRAST, LEFT [id number] CT of the left shoulder without contrast [...] Bustilloort Verified Date/Time: 01/02/2020 15:45:14 Reading Location: [facility] Radiology Reading Room upper 2020-01-02 Interface, External [facility] extremity without 15:45:00 Ris In - 01/02/2020 - [facility] of the left shoulder [...] Bustillo Verified Date/Time: 01/02/2020 15:45:14 Reading Location: [facility] Radiology Reading Room -CoV2/RT-PCR (Asymptomatic ONLY) 2020-01-02 13:11:00 Test Item Value Reference Range Interpretation Comme nts SARS-COV2/RT-PCR (test code = Negative Not Detected, 48748-8) Negative, See external report for linked test SARS-COV-2 PERFORMING LAB [facility] CARLOS MANUEL (test code = 88523-6) DELLA (test code = DELLA) Negative result [...] of the Act. Fact Sheet for Healthcare Providers:https://www.[employer]/sites/default/files/produ ct/documents/Fact_Sheet_HC_Pr airzthc_Pebu_DXST-EqN-3.pdf Fact Sheet for Healthcare Patients:https://www.[employer] /sites/default/files/produc t/documents/Fact_Sheet_[facility] vw_Fllm_CNBN-RtQ-6.pdf Performing Laboratory:[facility] [place] [address] [facility]F [facility])2020-01-02 13:11:00 Test Item Value Reference Range Interpretation Comments SARS-COV2/RT-PCR (test Negative Not Detected, Negative, code = 5575065) See external report for linked test SARS-COV-2 PERFORMING LAB [facility] CARLOS MANUEL (test code = 7933232) Negative result for this test determines that [...] 564(g) of the Act.Fact Sheet for Healthcare Providers:https://www.[employer].com/sites/default/files/product/documents/Fact_Shee o_AO_Vhllryzjr_Ylmt_UXHL-OkY-1.pdfFact Sheet for Healthcare Patients:https://www.[employer].com/sites/default/files/product/ documents/Sjbp_Vituq_Hdhvoowq_Yvzy_QENC-XeL-1.pdfPerforming Laboratory:[facility], [place] [address]EYR, SHOULDER, COMPLETE (MIN 2 VIEWS), [id number] 10:34:00Reason for exam:->ARM INJURYShould this be performed at the bedside?->YesFINAL REPORT RAD, SHOULDER, COMPLETE (MIN 2 VIEWS), LEFT INDICATION: ARM INJURY COMPARISON: 2 hours prior TECHNIQUE: Single frontal view of the left shoulder. IMPRESSION: Redemonstration of chronic changes in the anteriorly displaced humeral head. Glenoid rim appears preserved.Acromioclavicular joint remains intact. Signed: JR Moreira Robert MDReport Verified Date/Time: 01/02/2020 10:34:05 Reading Location: [facility] Radiology Reading Room XR shoulder complete 2 views min [id number] 10:34:00Interface, External Ris In - 01/02/2020 10:36 AM CDTFINAL REPORT RAD, SHOULDER, COMPLETE (MIN 2 VIEWS), LEFT INDICATION: ARM INJURY COMPARISON: 2 hours prior TECHNIQUE: Single frontal view of the left shoulder. IMPRESSION: Redemonstration of chronic changes in the anteriorly displaced humeral head. Glenoid rim appears preserved. Acromioclavicular joint remains intact. Signed: Teressa hernandez JR, Robert MDReport Verified Date/Time: 01/02/2020 10:34:05 Reading Location: [facility] Radiology Reading Room [facility] [id number] 09:03:00 Test Item Value Reference Interpretation Comments Range Protime (test code = 13.4 See_Comment [Autom ated 5902-2) message] The system which generated this result transmitted reference range : 11.9 - 14.2 seconds. The reference range was not used to interpret this result as normal/abnormal . INR (test code = 1.1 See_Comment [Automated 1691-6) message] The system which generated this result transmitted reference range : <=5.9. The reference range was not used to interpret this result as normal/abnormal . PTT (test code = 30.8 See_Comment [Automated 07396-3) message] The system which generated this result [...] valves. Lab Interpretation Normal (test code = 95916-9) [facility]PT/[id number] 09:03:00 Test Item Value Reference Range Interpretation [...] 8.0 See_Comment Specime n slightly code = 3045-2) hemolyzed [Automated message] The system which generated this result transmit roseann reference range : 6.0 - 8.3 gm/dL . The reference range was not u sed to interpret th is result as normal/abnormal . Albumin (test code = 4.2 g/dL 3.5-5 Specime n slightly 45585-1) hemolyzed Alkaline Phosphatase 78 U/L 40-150 (test code = 6768-6) Total Bilirubin (test 0.4 mg/dL 0.2-1.2 Specim en slightly code = 1975-2) hemolyzed Sodium (test code = 134 meq/L 136-145 L 2951-2) Potassium (test code 3.5 meq/L 3.5-5.1 Specime n slightly = 2153-3) hemolyzed Chloride (test code = 100 meq/L 98-107 5-0) CO2 (test code = 21 meq/L 22-29 L 8-9) BUN (test code = 10 mg/dL 7-21 3094-0) Creatinine (test code 0.83 mg/dL 0.57-1.25 Specim en slightly = 2160-0) hemolyzed Glucose (test code = 74 mg/dL 70-105 2345-7) Calcium (test code = 9.3 mg/dL 8.4-10.2 87965-6) AST (test code = 25 U/L 5-34 Specimen sl ightly 1920-8) hemolyzed ALT (test code = 16 U/L 6-55 Specimen sl ightly 1742-6) hemolyzed EGFR (test code = 96 mL/min/1.73 [place] [address]-6) NOT ACCURATE CREATININE CLEARANCE IN PREDICTING GLOMERULAR FILTRATION RATE . ESTIMATED GFR I S NOT APPLICABLE FOR DIALYSIS PATIEN TS. DELLA (test code = DELLA) Principal Archaeologist ID - EDASI Lab Interpretation Abnormal (test code = 88149-5) [facility] Center[facility] [id number] 08:46:00 Test Item Value Reference Range Interpretation [...] S NOT APPLICABLE FOR DIALYSIS PATIEN TS. Principal Archaeologist ID - EDASICBC with platelet count + automated [id number] 08:30:00 Test Item Value Reference Range Interpretation Comments WBC (test code = 6690-2) 7.5 See_Comment [A utomated message] The system [employer] generated this result transmitted ref erence range: 3.5 - 10 .5 K/L. The refe rence range was not u sed to interpret this result as normal/abnor mal. RBC (test code = 789-8) 4.74 See_Comment [Au tomated message] The system [employer] generated this result transmitted ref erence range: 4.63 - 6 .08 M/L. The refe rence range was not u sed to interpret this result as normal/abnor mal. MCHC (test code = 786-4) 34.0 See_Comment [A utomated message] The system [employer] generated this result transmitted ref erence range: [...] See_Comment [Aut omated message] 777-3) The system [employer] generated this result transmitted ref erence range: 150 - 45 0 K/CU MM. The referen ce range was not u sed to interpret this result as normal/abnor mal. MPV (test code = 8.8 fL 9.4-12.4 L 79273-1) nRBC (test code = 413) 0 See_Comment [Aut omated message] The system [employer] generated this result transmitted ref erence range: [...] H [Aut omated message] 670) The system [employer] generated this result transmitted ref erence range: 1.78 - 5 .38 K/L. The refe rence range was not u sed to interpret this result as normal/abnor mal. # Lymphs (test code = 1.32 See_Comment [Auto mated message] 414) The system [employer] generated this result transmitted ref erence range: 1.32 - 3 .57 K/L. The refe rence range was not u sed to interpret this result as normal/abnor mal. # Monos (test code = 0.41 See_Comment [Autom ated message] 415) The system [employer] generated this result transmitted ref erence range: 0.30 - 0 .82 K/L. The refe rence range was not u sed to interpret this result as normal/abnor mal. # Eos (test code = 416) 0.19 See_Comment [Au tomated message] The system [employer] generated this result transmitted ref erence range: 0.04 - 0 .54 K/L. The refe rence range was not u sed to interpret this result as normal/abnor mal. # Baso (test code = 417) 0.06 See_Comment [A utomated message] The system [employer] generated this result transmitted ref erence range: 0.01 - 0 .08 K/L. The refe rence range was not u sed to interpret this result as normal/abnor mal. Immature 1 % 0-1 Granulocytes-Relative (test code = 2801) Lab Interpretation (test Abnormal code = 95719-4) [facility] W/PLT COUNT & AUTO [id number] 08:30:00 Test Item Value Reference Range Interpretation [...] 2801) RAD, SHOULDER, COMPLETE (MIN 2 VIEWS), [id number] 07:45:00Reason for exam:- >ARM INJURYFINAL REPORT RAD, [...] MDReport Verified Date/Time: 01/02/2020 07:45:57 Reading Location: [facility] Radiology Reading Room Electronic ally [...] cannula Sedation: Propofol and ketamine Intra-procedure monitoring: case monitor, blood pressure monitoring, continuous capnometry and continuous pulse oximetry Intra-procedure events: none Sedation end time: 01/02/2020 10:05 AMPost Sedation Evaluation: Respiration: airway patentThe following have been reviewed and found to be within acceptable parameters: RR, HR, BP and pulse ox Pain Scale: 5/10 Nausea/Vomiting: noHydration status: wnlTemperature within expected parameters :Temperature within defined limits @[facility]EDMULT[facility]IT[facility]@ [facility] CenterBLOOD [id number] 02:00:00 Test Item Value Reference Range Interpretation Comments CULTURE (BEAKER) (test No growth in 5 days code = 1095) BLOOD [id number] 20:01:00 Test Item Value Reference Range Interpretation Comments CULTURE (BEAKER) (test No growth in 5 days code = 1095) EEG AWAKE AND [id number] 14:49:00Reason for exam:->seizuresDate(s) of EE10/14/18DATE OF REPORT: 10/14/18ACC: [id number] Number: [id number] time: 13:36Stop time: 13:57ICD-10: R56.9 Unspecified ConvulsionsCPT Code: 04952 EEG: awake and drowsy <40 min HISTORY: [...] MDNeurophysiology/Epilepsy Attending [facility] METABOLIC [id number] 07:41:00 Test Item Value Reference Range Interpretation [...] PATIEN TS. CBC W/PLT COUNT & AUTO [id number] 05:30:00 Test Item Value Reference Range Interpretation [...] (test code = 2801) VITAMIN B12 AND [id number] 19:46:00 Test Item Value Reference Range Interpretation Comments VITAMIN B12 (BEAKER) (test code = 683 pg/mL 213-816 774) FOLATE (BEAKER) (test code = 362) > ng/mL >=7.0 [id number] 17:59:00 Test Item Value Reference Range Interpretation Comments PHOSPHORUS (BEAKER) (test code = 4.0 mg/dL 2.3-4.7 604) [id number] 17:59:00 Test Item Value Reference Range Interpretation Comments MAGNESIUM (BEAKER) (test code = 2.5 mg/dL 1.6-2.6 627) CT, BRAIN, WITHOUT [id number] 16:58:00FINAL REPORT CT head without contrast. Reason [...] and chronic microvascular ischemic changes. Signed: Delisa Bustilloort Verified Date/Time: 10/12/2018 16:58:56 Reading Location: [facility] Neuro Reading Room ALYSIS W/ [id number] 16:25:00 Test Item Value Reference Range Interpretation [...] 516) SOURCE(BEAKER) (test code = Urine, Voided 7389) BLOOD [id number] 10:00:00 Test Item Value Reference Range Interpretation Comments CULTURE (BEAKER) (test No growth in 5 days code = 1095) STOOL CULTURE + SHIGA [id number] 09:59:00 Test Item Value Reference Range Interpretation Comments CULTURE (BEAKER) No Salmonella, Shigella (test code = 1095) or Campylobacter isolated STOOL PATH [id number] 09:01:00 Test Item Value Reference Range Interpretation Comments PATHOGEN EXAM CHARGED (BEAKER) (test Done code = 5594) BASIC METABOLIC [id number] 06:59:00 Test Item Value Reference Range Interpretation [...] APPLICABLE FOR DIALYSIS PATIEN TS. SHIGA TOXIN [id number] 15:48:00 Test Item Value Reference Range Interpretation Comments SHIGA TOXIN 1 (BEAKER) (test Not detected Not detected code = 2177) SHIGA TOXIN 2 (BEAKER) (test Not detected Not detected code = 2179) CLOSTRIDIUM DIFFICILE TOXIN [id number] 15:13:00 Test Item Value Reference Range Interpretation [...] a positive result is not recommended.BLOOD GAS, [id number] 11:03:00 Test Item Value Reference Range Interpretation [...] code = 1819) 21.0 % BASIC METABOLIC [id number] 05:14:00 Test Item Value Reference Range Interpretation [...] NOT APPLICABLE FOR DIALYSIS PATIEN TS. PTH, [id number] 05:03:00 Test Item Value Reference Range Interpretation Comments PARATHYROID HORMONE INTACT 41.8 pg/mL 8.5-72.5 (BEAKER) (test code = 577) BASIC METABOLIC [id number] 07:10:00 Test Item Value Reference Range Interpretation [...] APPLICABLE FOR DIALYSIS PATIEN TS. SODIUM, RANDOM [id number] 06:58:00 Test Item Value Reference Range Interpretation Comments SODIUM URINE (BEAKER) (test code = 65 meq/L 243) Reference Range: No NormalsPROTHROMBIN TIME/[id number] 06:47:00 Test Item Value Reference Range Interpretation Comments PROTIME (BEAKER) (test code = 14.5 seconds 11.7-14.7 759) INR (BEAKER) (test code = 370) 1.1 <=5.9 RECOMMENDED COUMADIN/WARFARIN INR THERAPY RANGESSTANDARD DOSE: 2.0 - 3.0 Includes: PROPHYLAXIS forvenous thrombosis, systemic embolization; TREATMENT for venous thrombosis and/or pulmonary embolus.HIGH RISK: Target INR is 2.5-3.5 for patients with mechanical heart valves.RAPID DRUG SCREEN, [id number] 15:43:00 Test Item Value Reference Range Interpretation [...] situations. Chain of custody not maintained. Some gjse-qrm-eymtuby medications, as well as adulterants, may cause inaccurate results. Clinical correlation should be applied. A more comprehensive drug screen or confirmation of a detected drug may be performed upon request. URINE [id number] 14:33:00 Test Item Value Reference Range Interpretation Comments CULTURE (BEAKER) (test code = 1095) No growth BASIC METABOLIC [id number] 08:09:00 Test Item Value Reference Range Interpretation [...] PATIEN TS. CBC W/PLT COUNT & AUTO [id number] 06:38:00 Test Item Value Reference Range Interpretation [...] (BEAKER) (test code = 2801) U/S, RENAL, [id number] 22:34:00Reason for exam:->acute kidney injury FINAL REPORT [...] with no evidence of hydronephrosis. Signed: Liana Jack Verified Date/Time: 04/17/2017 22:34:25 Reading Location:[address] Consult Reading Room MR, BRAIN, WITHOUT [id number] 19:18:00Reason for exam:->Stroke evaluationFINAL REPORT MRI Brain [...] Charlene ified Date/Time: 04/17/2017 19:18:34 Reading Location: [facility] Radiology Reading Room EEG MONITORING WITH VIDEO RECORDING EACH 24 [id number] 18:01:00DATE OF TEST: 04/17/2017 DATE OF REPORT 04/17/2017 ACC: [id number] EE Start time: 16:42 Stop time: 18:44 ICD-10: R56.9 CPT Code: 13299 HISTORY: 51 y/o woman with history of [...] Gina Davis MD Neurophysiology Attending ALYSIS W/ [id number] 11:57:00 Test Item Value Reference Range Interpretation [...] 1583) SOURCE(BEAKER) (test code = Urine, Cooper 8109) EOSINOPHIL SMEAR, [id number] 11:56:00 Test Item Value Reference Range Interpretation Comments EOSINOPHIL SMEAR, URINE (BEAKER) No EOS seen No EOS seen (test code = 1851) CREATININE, RANDOM [id number] 11:24:00 Test Item Value Reference Range Interpretation Comments CREATININE URINE (BEAKER) (test 69.7 mg/dL code = 375) Reference Range: No NormalsSODIUM, RANDOM [id number] 11:24:00 Test Item Value Reference Range Interpretation Comments SODIUM URINE (BEAKER) (test code = 58 meq/L 243) Reference Range: No NormalsUREA NITROGEN, RANDOM [id number] 11:24:00 Test Item Value Reference Range Interpretation Comments UREA NITROGEN URINE (BEAKER) (test 172 mg/dL code = 538) Reference Range: No NormalsCREATINE KINASE (CK)2017-04-17 11:06:00 Test Item Value Reference Range Interpretation Comments CREATINE KINASE TOTAL (BEAKER) (test 136 U/L 29-200 code = 380) BASIC METABOLIC [id number] 04:53:00 Test Item Value Reference Range Interpretation [...] 697) EGFR (BEAKER) (test 17 mL/min/1.73 ESTIMA ROSENAN GFR IS code = 1092) sq m NOT ACCURATE CREATININE CLEARANCE IN PREDICTING GLOMERULAR FILTRATION RATE . ESTIMATED GFR I S NOT APPLICABLE FOR DIALYSIS PATIEN TS. CBC W/PLT COUNT & AUTO [id number] 04:19:00 Test Item Value Reference Range Interpretation [...] EEG MONITORING WITH VIDEO RECORDING EACH 24 [id number] 17:57:00DATE OF TEST: 04/16/2017DATE OF REPORT 04/16/2017 ACC: [id number]: 17-1987Start time: 08:42 Stop time: 16:42ICD-10: R56.9CPT Code: 80305OAQLLUS: 51 y/o woman with history of epilepsy [...] EEG demonstrates improvement in the degree of encephalopathy.[place] K. Jeroudi, M.D.Neurophysiology FellowAttending note: I personally reviewed this EEG record in tis entirety and I agree with the details of this report.Vicky Hassan MDEpilepsy Attending EEG AWAKE/ASLEEP AND [id number] 13:27:00Reason for exam:->status epilepticusDATE OF TEST: 04/16/2017DATE OF REPORT 04/16/2017 ACC: [id number] EEStart time: 08:21 Stop time: 08:42ICD-10: R56.9CPT Code: 24084SAQHAEP: 51 y/o woman with history of epilepsy [...] this report.Vicky Hassan MDEpilepsy Attending HEPATIC FUNCTION [id number] 12:59:00 Test Item Value Reference Range Interpretation [...] 347) hemolyzed RAD, CHEST, 1 VIEW, NON [id number] 09:16:00Reason for exam:- >intubatedShould this be performed at the bedside?->YesFINAL REPORT Chest two views AP 04/16/2017 9:15 AM CLINICAL INDICATION: intubated COMPARISON: None available IMPRESSION: Support hardware is in satisfactory radiographic position. Cardiomediastinal contours are within normal limits. There is central pulmonary vasculature congestion without remarkable peripheral edema. There are streaky foci of atelectasis bilaterally. Superimposed pneumonia should be excluded clinically. Signed: Chantale Doeort Verified Date/Time: 04/16/2017 09:16:32 Reading Location: [facility] Radiology Reading Room VITAMIN [id number] 07:31:00 Test Item Value Reference Range Interpretation Comments VITAMIN B12 (BEAKER) (test code = 450 pg/mL 213-446 144) FOLATE, [id number] 07:31:00 Test Item Value Reference Range Interpretation Comments FOLATE (BEAKER) (test code = 362) 8.0 ng/mL >=7.0 URINALYSIS W/ [id number] 07:09:00 Test Item Value Reference Range Interpretation [...] = 514) SOURCE(BEAKER) (test code = 2795) [id number] 05:59:00 Test Item Value Reference Range Interpretation Comments MAGNESIUM (BEAKER) 3.0 mg/dL 1.6-2.6 H Specimen moderately (test code = 627) hemolyzed [id number] 05:59:00 Test Item Value Reference Range Interpretation Comments PHOSPHORUS (BEAKER) 3.0 mg/dL 2.3-4.7 Specimen moderately (test code = 604) hemolyzed BASIC METABOLIC [id number] 05:59:00 Test Item Value Reference Range Interpretation [...] NOT APPLICABLE FOR DIALYSIS PATIEN TS. PROTHROMBIN TIME/[id number] 05:33:00 Test Item Value Reference Range Interpretation Comments PROTIME (BEAKER) (test code = 15.7 seconds 11.7-14.7 H 759) INR (BEAKER) (test code = 370) 1.3 <=5.9 RECOMMENDED COUMADIN/WARFARIN INR THERAPY RANGESSTANDARD DOSE: 2.0 - 3.0 Includes: PROPHYLAXIS forvenous thrombosis, systemic embolization; TREATMENT for venous thrombosis and/or pulmonary embolus.HIGH RISK: Target INR is 2.5-3.5 for patients with mechanical heart valves.BLOOD GAS, [id number] 05:31:00 Test Item Value Reference Range Interpretation [...] 60.0 % CBC W/PLT COUNT & AUTO [id number] 05:08:00 Test Item Value Reference Range Interpretation [...] (BEAKER) (test code = 2801) BLOOD BANK [id number] 17:22:00Product available (04/04/16 11:22 AM) [facility] [id number] 17:20:00Negative (04/04/16 11:20 AM) [facility] [id number] 07:08:001[facility] [id number] 07:08:003[facility] [id number] 07:08:00 Negative (03/14/16 2:08 AM)[facility] [id number] 07:08:005.0 [facility] [id number] 07:08:001.009[facility] [id number] 07:08:00Clear (03/14/16 2:08 AM)[facility] STOOL 2016-03-14 07:08:00Yellow *NA*(03/14/16 2:08 AM)[facility] ST[facility]OL 2016-03-14 07:08:00Negative (03/14/16 2:08 AM)[facility] ST[facility]OL 2016-03-14 07:08:00Negative (03/14/16 2:08 AM)[facility]14 07:08:00Negative *NA*(03/14/16 2:08 AM)[facility]annCHEM PANEL 2016-03-14 05:40:000.8[facility]BL[facility]OD BANK LHHMKXK8816-76-09 02:07:00 Negative (03/13/16 9:07 PM)[facility]CHE[facility] QMDCV4034-78-11 02:07:0043 [facility] SYTPW2851-31-92 02:07:0021[facility]annCHE[facility] PANEL 2016-03-14 02:07:001.79[facility]CHE[facility] GTRBT5528-53-33 02:07:0095[facility]CHE[facility] ZSGQZ4905-36-84 02:07:000.3[facility]annCHE[facility] NYXJQ4117-56-12 02:07:0039[facility]CHE[facility] PIPUD1757-96-19 02:07:0059[facility]annCHE[facility] NNIEY5035-70-87 02:07:28620Kwdfjszj HermannCHEM RPXFT4428-05-54 02:07:007.8 [facility]CHE[facility] FHGCY0065-20-91 02:07:002.5[facility]annCHEM PANEL 2016-03-14 02:07:25175Cfplzomz HermannCHEM THGJY5715-85-80 02:07:83431Cizseesi HermannCHEM SVLJM4172-76-15 02:07:0021[facility]annCHE[facility] UJFKU0700-47-03 02:07:0010.1[facility]annCHEM BLPHK8704-82-94 02:07:003.3[facility]annCHEM LNLII8081-73-15 02:07:000.5[facility]annCHEM QADLP3428-66-42 02:07:005.3 [facility]CHE[facility] UFPFK9688-26-95 02:07:0012[facility]annCHEM PANEL 2016-03-14 02:07:0015.3[facility] LspwbkdLIAMVQZUTO8658-08-84 02:07:007.4[facility] PlxgzgnTFXOOTRTRD9322-83-11 02:07:007.3[facility] JlzuyxyWIXJZJPZUF4663-84-61 02:07:0088.5[facility] JmhshynBTOVVPHYMA8916-66-63 02:07:003.00[facility] QWHESVSTMV2931-12-06 02:07:0026.5[facility] YpibzlyZETXREGDDN2977-18-70 02:07:00 8.8[facility] UxdmaqlDKBMWNMXRN8939-91-71 02:07:0033.1[facility]annHEMATOLOGY 2016-03-14 02:07:00 Test Item Value Reference Range Interpretation Comments MCH (test code = MCH) 29.3 pg 27.0-31.0 [facility] GechhsdOKCYEGXEIF4895-88-59 02:07:48617Bnvhefrt HermannHEMATOLOGY 2016-03-14 02:07:0015.5[facility] VxhwhcmXPKZSAZQNI4139-90-27 02:07:000.1[facility] KpslyfyCRTGVUOYUK0844-75-00 02:07:0014.3[facility] UwglmupDJFQCUHYVD5410-64-49 02:07:001.9[facility] IrytrcdODIVBZMBGZ5764-65-80 02:07:0077.1[facility] UGUTXJZJTO8676-69-68 02:07:005.3[facility] ZjdogsaCWECILPCMG4538-91-93 02:07:001.4 [facility] RgtbfjlDBVHJDWQKQ8467-61-22 02:07:005.6[facility]annHEMATOLOGY 2016-03-14 02:07:001.0[facility] GrfhrnhHYLWOYIRGJ4881-65-94 02:07:000.4[facility] CujhgzlPMWMWVBIFK3077-52-38 02:07:000.1[facility] HermannANEMIA ITJJZ5464-14-30 09:04:50879Lbzejnzj HermannANEMIA GBDNX6384-86-62 09:04:04916Hdyttjbd Kai ANEMIA MYJGD8855-47-28 09:04:0022[facility]annANEMIA SAGFQ3257-17-09 09:04:00 11[facility]annCHEM UQDZZ2715-83-18 15:50:0057[facility]annCHEM PANEL 2016-02-15 15:50:0014.7[facility]annCHEM FDKGX6932-54-32 15:50:008.7[facility]annCHEM LKIUW6003-57-33 15:50:0024[facility]annCHEM BVZBN8750-80-83 15:50:0099[facility]annCHEM RLYAC9042-08-25 15:50:003.7[facility]annCHEM FYYYX3437-50-94 15:50:0016[facility]annCHE[facility] YLFQS8300-11-17 15:50:27677 [facility]annCHE[facility] CYFBV3243-25-06 15:50:89300Uynhfftx HermannCHEM PANEL 2016-02-15 15:50:001.42[facility]annCHEM HAMIR2875-31-44 09:45:0051[facility]annCHEM LLCGG3948-94-87 09:45:000.8[facility]annCHEM BTKKY1827-13-66 09:45:0025[facility]annCHEM UVDDY4855-82-26 09:45:0015[facility]annCHEM SJLST5609-32-35 09:45:0062[facility]annCHE[facility] RCNAP9303-66-90 09:45:004.8 [facility]CHE[facility] HGFQL4208-39-94 09:45:000.5[facility]annCHEM PANEL 2016-02-14 09:45:009.0[facility]annCHEM GZBHN8944-81-64 09:45:82818Kdzvgirw HermannCHEM KYATF3490-56-11 09:45:0024[facility]annCHEM SSPXQ7675-40-43 09:45:21047Socfbheb HermannCHEM HLYBQ3643-11-96 09:45:0017[facility]annCHEM PSBUJ4394-91-66 09:45:004.1[facility]annCHEM COIYR8003-82-19 09:45:0014.1 [facility]CHE[facility] EIINS0840-13-51 09:45:002.3[facility]annCHEM PANEL 2016-02-14 09:45:007.1[facility]annCHE[facility] QAXIG2957-50-26 09:45:001.55[facility]annCHEM NVUCL7732-64-64 09:45:64774Gdwsyses HermannCHEM JRQVI6058-33-98 09:45:0011[facility] CgewszuPKUQLZBKHA6124-64-29 09:45:007.7[facility] EYOIAIDBPV6252-30-27 09:45:0025.4[facility] PrpbseuRBAMAYCEGN1020-63-20 09:45:00 Test Item Value Reference Range Interpretation Comments MCH (test code = MCH) 32.7 pg 27.0-31.0 [facility] LgljlwxXZDBIASEXL8171-47-83 09:45:0096.6[facility]annHEMATOLOGY 2016-02-14 09:45:66963Gwmazrog TvqxggyUWSDBDGUFB7655-47-07 09:45:0014.7[facility] WzeoipyJPHLGYJDOV8874-16-01 09:45:0033.8[facility] BwavzjnIGCJFSDBLS6495-66-47 09:45:008.4[facility] AgifznpQGGMVINSOS9532-88-14 09:45:008.6[facility] IMINGQGTTI6696-92-37 09:45:002.63[facility] AsgshbuQFGSBRZMFN1522-22-22 09:45:00 1.5[facility] NkufonoJYGVPIAUTC6612-66-20 09:45:000.2[facility]annHEMATOLOGY 2016-02-14 09:45:000.8[facility] PjildbcXZNBNYNPJC4854-10-68 09:45:000.1[facility] XjmxqwaBVKXQGJMHQ0019-71-02 09:45:009.9[facility] HijhbuzYZLMYPVPJH8233-24-47 09:45:0017.2[facility] QdshpvuEVAHICDOWO0597-85-99 09:45:0069.8[facility] AMEXPULOKZ3069-64-45 09:45:002.2[facility] YjzksnlRMRJYNUFQQ4010-47-71 09:45:005.9 [facility] BmspatvORQCZXZAEB2570-80-92 09:45:000.9[facility] HermannTOXICOLOGY 2016-02-14 09:45:0014.8[facility]annCHEM UCYNW4352-46-50 09:54:006.3[facility]annCHEM HDJTQ1848-64-14 09:54:000.7[facility]annCHEM VACCE4481-90-52 09:54:0012[facility]annCHEM VALMP0356-80-09 09:54:003.8[facility]annCHEM NOAXH8124-94-65 09:54:0012[facility]annCHEM GYWRE1660-77-76 09:54:0061 [facility]annCHE[facility] YZMXZ3923-40-54 09:54:002.5[facility]annCHEM PANEL 2016-02-13 09:54:0026[facility]annCHE[facility] YSBCD8997-90-51 09:54:000.4[facility]annCHEM OGGSG7877-96-15 09:54:0013.5[facility]annCHEM LFNUC3159-35-12 09:54:0057[facility]annCHEM JRKHN9118-02-10 09:54:0027[facility]annCHE[facility] EKXAF2443-84-46 09:54:008.7[facility]annCHEM UQKRE3047-23-74 09:54:51449 [facility]annCHE[facility] NEDDQ2921-20-86 09:54:004.5[facility]annCHEM PANEL 2016-02-13 09:54:001.42[facility]annCHEM CVVHM0351-85-16 09:54:02173Zkygghbh HermannCHEM IMROE3585-16-02 09:54:97814Ivsskonl HermannCHEM JCKWQ3801-84-18 09:54:0017[facility] JqlekvgFOQKTZLDBQ0901-93-27 09:54:009.3[facility]annCHEM HIBXZ6119-44-98 17:04:004.9[facility]annCHEM JISKF9893-30-12 17:04:001.8 [facility] EhrajrvHLHMHZEOKS6681-24-92 17:04:0070.5[facility]annHEMATOLOGY 2016-02-12 17:04:0018.0[facility] SogfwxxMMXLVPFMUF5716-04-68 17:04:009.7[facility] MebzcktGXONEZAAKL9101-21-09 17:04:006.4[facility] YbvsusvCAFTSHSPVV6118-93-65 17:04:001.6[facility] VglnmjgLKLYIUKQMS2551-64-80 17:04:000.5[facility] VSAGIXRHGY4417-44-22 17:04:001.3[facility] PvbiaboKCMEXGYLYX2651-60-17 17:04:000.9 [facility] HfrefylGLPSQZVTDG6350-75-49 17:04:000.1[facility]annHEMATOLOGY 2016-02-12 17:04:43476Piqvffcb PrdebwhFCEWCSOJVR4616-15-49 17:04:006.9[facility] GycrzxeUQRUOTTNUU8197-97-93 17:04:0033.9[facility] EoucbtiZNPPRVCWRU8798-79-33 17:04:0015.1[facility] FwjhvxxUCOKEIUORZ8498-17-18 17:04:002.69[facility] IRLLXSZAGA2467-74-06 17:04:0096.5[facility] FfvmaefDGSUEEZGOC4503-02-79 17:04:00 9.1[facility] VnuytvoNXFYPVEEJI2108-42-57 17:04:008.8[facility]annHEMATOLOGY 2016-02-12 17:04:0026.0[facility] QjcdqhhKIQJKZULIB6021-40-61 17:04:00 Test Item Value Reference Range Interpretation Comments MCH (test code = MCH) 32.7 pg 27.0-31.0 [facility] JosjtkqMAXNUDLUYL7856-23-19 08:18:007.7[facility]annHEMATOLOGY 2016-02-12 08:18:001.5[facility] OqxoeiwHTRWDNSSES7790-66-68 08:18:000.2[facility] KdwsnmpRVQNAKCFKG4934-91-03 08:18:000.2[facility] HruksxjYWFNPRPDAN1202-96-99 08:18:001.2[facility] NdittuuZZALMZLHVE7720 08:18:0069.4[facility] SLLVCQOVNX8018-28-88 08:18:0010.5[facility] RdhduifLHCRFUOPUE1328-38-85 08:18:00 1.emorial BdedsbgPCECNRWAAL2165-10-59 08:18:001.9[facility]annHEMATOLOGY 2016-02-12 08:18:0017.0[facility] HwdfuezAWVEOETIJL0386-67-44 08:18:0028.9[facility] GptpbzpXIJJOSYRJJ5198-89-39 08:18:0033.6[facility] RsrqxryZTLLABZWMX0609-95-54 08:18:0014.6[facility] BukpgclFYILHJNXIP6285-54-61 08:18:0096.6[facility] HNXWNLUXZW3208-91-56 08:18:00 Test Item Value Reference Range Interpretation Comments MCH (test code = MCH) 32.4 pg 27.0-31.0 [facility] EfpamkhNTGZSTDFKU7797-54-64 08:18:009.7[facility]annHEMATOLOGY 2016-02-12 08:18:0011.1[facility] XpxxasrNGSPYETACU3548-62-83 08:18:002.99[facility] NqxoxmeNADTOFEBHC6866-77-81 08:18:87749Artsqsnm WrsbzpyPAFLURPFVK4796-76-42 08:18:007.4[facility] FhthmqcEWJGTZEBBQ9055-61-84 09:02:0010.9[facility] ZLPZCJHHRF9276-96-69 08:14:000.1[facility] VqeqbzvCJBZWWQFMR2638-17-16 08:14:00 14.1[facility] AxsfdjfMJGANGNWLN4629-07-62 18:46:00>100[facility]BL[facility] BANK POUSIJC3789-49-31 10:38:00Negative (02/08/16 5:38 AM)[facility]annCHEM CDIEV1902-18-81 10:38:000.11[facility] ZDWRH2321-33-80 05:36:00 Negative (02/05/16 12:36 AM)[facility] ZOJTX7136-08-45 05:36:001 [facility] VLVKR0369-76-66 05:36:00Negative (02/05/16 12:36 AM) [facility] NSJPW7819-33-96 05:36:00Negative *NA*(02/05/16 12:36 AM)[facility] ABMQN9786-89-52 05:36:00Negative (02/05/16 12:36 AM) [facility] AGNPI2811-84-99 05:36:00Clear (02/05/16 12:36 AM) [facility] FXXWS6337-18-65 05:36:006.0[facility] SYDUQ4444-96-60 05:36:00Light Yellow *NA*(02/05/16 12:36 AM)[facility] WKSZH6788-85-32 05:36:001.006[facility] DXKPK1163-14-63 21:31:00Negative (02/01/16 4:31 PM)[facility] QGZSV6412-11-51 21:31:00Negative (02/01/16 4:31 PM)[facility] TAHQI4526-81-39 21:31:00Negative (02/01/16 4:31 PM)[facility] MWPHV6945-10-69 21:31:001[facility] ZVMEC1022-70-81 21:31:003[facility]INE AND RVPVK7752-92-77 21:31:005.5[facility] NGZFG6491-35-72 21:31:00Negative *NA*(02/01/16 4:31 PM)[facility] LZFNP3584-22-56 21:31:00Yellow *NA*(02/01/16 4:31 PM)[facility] GWJWA4553-71-39 21:31:00Clear (02/01/16 4:31 PM)[facility] JGKYB7142-05-31 21:31:00 1.007[facility] SNVK2254-29-58 21:31:0041[facility] CHEM 2016-02-01 21:31:0070.40[facility] LEPX5896-95-91 21:31:0038[facility]annCARDIAC NIWEUQI6517-80-97 20:44:00<0.02[facility]annCHEM PANEL 2016-01-31 20:44:000.13[facility]annCHEM DBIFL5370-61-77 20:44:001.7[facility]annCHEM VGWSI5976-27-38 20:44:000.4[facility]annCHEM YCWTQ3642-44-13 20:44:007.7[facility]annCHEM FRYXH4538-68-70 20:44:0019[facility]annCHEM ALZLB5091-60-78 20:44:0023[facility]annCHEM UXQCF5919-99-23 20:44:0058 [facility]annCHEM SJDDS3430-87-34 20:44:002.8[facility]annCHEM PANEL 2016-01-31 20:44:000.6[facility]annCHEM BEUIO7959-44-32 20:44:004.9[facility]annCHEM CDQRL6731-92-90 20:44:0015[facility] VthahztLFGZFWOMXY8062-54-26 20:44:00 Test Item Value Reference Range Interpretation Comments PTT (test code = PTT) 42.4 s 22.9-35.8 [facility] QzkjwklDNAWHNOGND0679-39-44 20:44:00 Test Item Value Reference Range Interpretation Comments PT (test code = PT) 14.6 s 12.0-14.7 [facility] AcuoehxIKJRQVBSAE6853-37-21 20:44:001.11[facility] HermannLIPIDS 2015-02-16 05:00:0077[facility] StwuibgXAIFNV0292-05-99 05:00:0029[facility] RHKQLK7713-89-37 05:00:76834Pcxgcdsb RvgufaxBSRWIO0130-26-44 05:00:007.66 [facility] OczaubxJFTTZR6355-71-33 05:00:75398Wvvgwqbb LsrpdlhCSZBXB4933-21-38 05:00:36137Jcrhlgqk HermannCARDIAC SKSFBPO6823-06-74 04:23:000.8[facility] CARDIAC LPUFZCR3690-64-27 04:23:000.6[facility]annCARDIAC CBOBRPI6509-84-51 04:23:00<0.02[facility]annCARDIAC FVFSUTG1996-30-80 04:23:0076[facility]annCARDIAC FRVSPGA2218-33-81 00:27:00<0.02[facility]annCARDIAC ENZYMES 2015-02-16 00:27:0089[facility]annCARDIAC JSBHFEW4098-75-09 00:27:001.0 [facility]CARD[facility]AC IBVBSCD1205-16-19 00:27:000.9[facility] HermannTHYROID YNAAR0735-03-88 00:27:002.000[facility]annCARDIAC PZTXGZL0769-63-87 19:22:00 0.8[facility]annCARDIAC MJZRFWI7573-44-97 19:22:00<0.02[facility] CARDIAC IFZGMZC7181-14-55 19:22:32442Ftjvnulo HermannCARDIAC FCJHKYP5099-02-57 19:22:000.9[facility]annCHEM TZBHZ6064-18-01 19:22:0070[facility]annCHEM XUMHU8949-61-80 19:22:0087[facility]annCHEM NDYEX9707-58-59 19:22:0023 [facility]annCHEM CZIVA4574-78-86 19:22:0027[facility]annCHEM PANEL 2015-02-15 19:22:003.4[facility]annCHEM HJACI6125-91-91 19:22:007.7[facility]annCHEM YEENW9735-97-85 19:22:000.8[facility]annCHEM SPEWB4400-87-84 19:22:004.3[facility]annCHEM IBZYA5619-46-40 19:22:006[facility]annCHEM BONKL4319-33-54 19:22:0011.8[facility]annCHEM FTREE2140-09-18 19:22:000.4 [facility]annCHE[facility] YYGDI2886-35-41 19:22:009.2[facility]annCHEM PANEL 2015-02-15 19:22:0025[facility]annCHEM VKLMW3973-16-91 19:22:0088[facility]annCHEM YVNCY2210-88-66 19:22:18268Kmsdifbl HermannCHEM YCGYL7538-03-76 19:22:004.8[facility]annCHEM WBAFF5300-11-54 19:22:80240Twvhqjmo HermannCHEM QZUWO5940-22-64 19:22:001.2[facility]annCHEM SFDOJ2874-17-70 19:22:007 [facility]annCHEM EDGLP1246-88-36 19:22:002.0[facility]annHEMATOLOGY 2015-02-15 19:22:000.4[facility] GdxonxnBDEFZVGHRJ5715-27-52 19:22:000.0[facility] KdspjplZJXCWIVOOO4298-10-05 19:22:004.6[facility] MkjjzqrBJLSUQULPU3617-95-47 19:22:000.8[facility] TzlhtiyEYRJIVICSF5706-00-43 19:22:0010.3[facility] GDQMFQKORI1801-38-71 19:22:005.0[facility] KzfxjcrZBUSUHRIML3328-29-16 19:22:000.4 [facility] SjasrwjMZFZELFTNV5466-79-86 19:22:0025.7[facility]annHEMATOLOGY 2015-02-15 19:22:002.0[facility] CiqlnmaBGIQOOFSJY4425-63-95 19:22:0058.6[facility] PshgawdJBYBHYLXEI8432-72-97 19:22:001.00[facility] BkknlhaKVBDBRNVKN9423-01-62 19:22:00 Test Item Value Reference Range Interpretation Comments PT (test code = PT) 13.5 s 12.0-14.7 [facility] XnlwxbbTCSQDQOPAE1467-64-18 19:22:00 Test Item Value Reference Range Interpretation Comments PTT (test code = PTT) 33.7 s 22.9-35.8 [facility] OkofxmxKCLYNEGCVR4602-01-69 19:22:95551Nafpouhd HermannHEMATOLOGY 2015-02-15 19:22:007.8[facility] FgwgchvVCOUSDHWTI7688-79-51 19:22:00 Test Item Value Reference Range Interpretation Comments MCH (test code = MCH) 33.3 pg 27.0-31.0 [facility] JsvveioJZSCRRYMTJ7774-42-32 19:22:004.62[facility]annHEMATOLOGY 2015-02-15 19:22:0097.4[facility] GzvnrxmRMOSBVLAJT7220-25-10 19:22:0015.4[facility] OvcjadeRHMRZBBDQD7139-00-65 19:22:0045.0[facility] AjffqisROUGZBSLDX8650-47-74 19:22:0034.2[facility] PqmkfrmCGRZAARPYE9594-17-55 19:22:007.0[facility] QMOOFIFPNX8192-20-80 19:22:0016.0[facility] HermannDRUG NSRLSY3144-90-88 20:10:00 Negative *NA*(01/23/15 3:10 PM)[facility]annDRUG GNNNWS0999-14-32 20:10:00 Negative *NA*(01/23/15 3:10 PM)[facility]annDR[facility] HVRYCV7454-78-05 20:10:00 Negative *NA*(01/23/15 3:10 PM)[facility]annDR[facility] BZJLLP5292-41-71 20:10:00 Negative *NA*(01/23/15 3:10 PM)[facility]annDR[facility] YYPAER0260-42-36 20:10:00See Note (01/23/15 3:10 PM)[facility]annDR[facility] GREWRU2852-90-31 20:10:00Negative *NA*(01/23/15 3:10 PM)[facility]annDR[facility] CTDDJW7738-13-91 20:10:00Positive *ABN*(01/23/15 3:10 PM)[facility]annDR[facility] XUNHMR1267-83-45 20:10:00Negative *NA*(01/23/15 3:10 PM)[facility] EGHBW8973-21-70 20:10:00Negative (01/23/15 3:10 PM)[facility] WVWCT3514-13-97 20:10:00Negative (01/23/15 3:10 PM)[facility] VQOOT7276-86-88 20:10:003[facility]UR[facility] KSQAI6702-64-66 20:10:00<1[facility] STOOL 2015-01-23 20:10:005[facility] BJJJT9013-09-37 20:10:00Yellow *NA*(01/23/15 3:10 PM)[facility] MNJBN0992-03-92 20:10:006.0 [facility] RQJIC5916-13-18 20:10:001.017[facility] BKRHO4760-51-60 20:10:00Slight *ABN*(01/23/15 3:10 PM)[facility] MEXXG4173-38-21 20:10:00Moderate *ABN*(01/23/15 3:10 PM)[facility] FHXPS7493-20-75 20:10:00Negative *NA*(01/23/15 3:10 PM)[facility]annCARDIAC NWYLIOJ5850-18-90 19:55:000.7[facility]annCARDIAC IPBQCDU1313-30-08 19:55:00 <0.02[facility]annCARDIAC BQHDMOF8561-84-49 19:55:60164Gdayulpa Kai CARDIAC DVYZYLW5873-01-24 19:55:001.2[facility] HermannCHEM KMIIE4283-10-79 19:55:0054[facility] HermannCHEM XLQBS6857-63-53 19:55:001.0[facility] HermannCHEM CWBVB3828-72-63 19:55:0023[facility] HermannCHEM AJWDA4916-72-63 19:55:004.3 [facility]annCHEM NFIQL1917-25-05 19:55:0039[facility]annCHEM PANEL 2015-01-23 19:55:008.8[facility] HermannCHEM JQRPF9985-43-09 19:55:009.3[facility] HermannCHEM BVDZF9108-98-21 19:55:0020.5[facility] HermannCHEM YIXAL8641-06-81 19:55:004.5[facility]annCHEM TYKLI0377-45-08 19:55:0010[facility]annCHEM IFLNW2215-18-93 19:55:000.5[facility]annCHEM HAMHD1764-59-85 19:55:0088 [facility]annCHEM ORHBB6424-83-67 19:55:004.5[facility]annCHEM PANEL 2015-01-23 19:55:14340Eptzvfzy HermannCHEM BEFMI9013-84-59 19:55:0017[facility]annCHEM VWNZY5992-92-11 19:55:96307Awrfumxl HermannCHEM XGUNO6222-09-67 19:55:03945Vxbjfauf HermannCHEM MZMAJ6087-21-59 19:55:001.5[facility] HermannCHEM BNQOR7664-00-61 19:55:0015[facility] GoejrkhEHCVLRWHWJ6902-50-00 19:55:0089.7 [facility] XxngxvnYNFCCMBIQV2721-59-34 19:55:0011.6[facility]annHEMATOLOGY 2015-01-23 19:55:000.8[facility] QwmfvlaVYSUSTHNOL1445-64-40 19:55:006.5[facility] PtzggozSXTNOLWHOX4994-28-99 19:55:003.2[facility] ZrqcqctLGATOJOGBR4645-93-15 19:55:000.4[facility] AbnrewgOGFHZQARUU9410-96-53 19:55:000.0[facility] LZCIDBYCBE6151-12-65 19:55:000.1[facility] DdnijssFBGTDLULTX9219-15-59 19:55:000.2 [facility] XgldlkyCIHWKNJLEU5293-61-57 19:55:000.4[facility]annHEMATOLOGY 2015-01-23 19:55:00 Test Item Value Reference Range Interpretation Comments PT (test code = PT) 14.2 s 12.0-14.7 [facility] OoubjanQYLFDIILIA5094-59-63 19:55:001.07[facility]annHEMATOLOGY 2015-01-23 19:55:00 Test Item Value Reference Range Interpretation Comments PTT (test code = PTT) 31.2 s 22.9-35.8 [facility] CimdbvkUOOKRDRAKV8183-80-36 19:55:008.3[facility] HermannHEMATOLOGY 2015-01-23 19:55:0032.8[facility] YnhvqaxEYRSKHFQJW6581-43-54 19:55:0017.0[facility] NdstjttTHTRNDFCHI8424-03-25 19:55:40400Fqiicbzc GbostzwKIYNCDLYSH7911-65-19 19:55:0051.7[facility] TjfnpglVEJUZKJMGX3199-57-57 19:55:0097.9[facility] WEGOSXIQBR9859-25-59 19:55:00 Test Item Value Reference Range Interpretation Comments MCH (test code = MCH) 32.1 pg 27.0-31.0 [facility] DauquugLUXXEYLJBE3923-20-74 19:55:0017.0[facility]HE[facility]OLOGY 2015-01-23 19:55:0012.9[facility] BdopzunUERGCNXSAQ8665-09-94 19:55:005.28[facility] AcpkfplTSXROYEHXP0723-54-05 19:55:00<0.003[facility]annTOXICOLOGY 2015-01-23 19:55:00<3[facility]annCHEM UHZFF6694-50-28 17:07:0071[facility]annCHEM MVBBX4811-45-40 17:07:000.3[facility]annCHEM UYWFQ6171-84-87 17:07:0018[facility]annCHEM BCOGX7334-48-14 17:07:0088[facility]annCHEM HKMTC7032-66-17 17:07:0036[facility]annCHE[facility] RWTFY5392-67-57 17:07:004.0 [facility]annCHE[facility] JSLMZ7643-31-84 17:07:008.8[facility]annCHEM PANEL 2013-11-20 17:07:0022[facility]annCHEM HLHHY4436-29-33 17:07:009.5[facility]annCHEM WLLBG7117-59-84 17:07:29550Osnqmqiz HermannCHEM AKHDZ0257-21-84 17:07:54519Nnpozise HermannCHEM XCUAZ3359-91-85 17:07:004.2[facility]annCHEM FPEIW0364-84-96 17:07:001.2[facility]annCHE[facility] SPLXN1046-70-86 17:07:08727 [facility]annCHE[facility] DXHIV2032-42-77 17:07:007[facility]annCHEM PANEL 2013-11-20 17:07:004.8[facility]annCHEM ABQMC7386-22-41 17:07:000.8[facility]annCHEM DCKKN2278-02-71 17:07:006[facility]annCHEM TAURY1211-65-59 17:07:0014.2[facility] SbrdwqgSWUSPHRPUL7321-38-64 17:07:003.2[facility] KHKHRYVTOY2097-91-34 17:07:0016.7[facility] TktgyjqGKSJITWQNK9367-39-44 17:07:00 6.2[facility] VapaomlINNWGCBJCE2611-55-52 17:07:0073.3[facility]annHEMATOLOGY 2013-11-20 17:07:000.6[facility] IztbpxaIZKDBGQQIZ8711-40-74 17:07:000.1[facility] TmjazxzNWDKSQKUNY4558-06-02 17:07:000.3[facility] FawvpspSKXGLMGUYN9783-88-31 17:07:000.6[facility] XsunxmkVBZKQUVSST2817-92-73 17:07:001.6[facility] WSKTQGJIOL5810-57-83 17:07:006.8[facility] PjmzttpWZHWWTHDOZ7124-16-62 17:07:13925 [facility] HlrwphvVGFGBOBWWG0274-46-97 17:07:007.6[facility]annHEMATOLOGY 2013-11-20 17:07:0033.8[facility] ZwvkfdjCYGZAGGWNA2147-75-67 17:07:0014.2[facility] GaxpvfbBTLTZDVFMH8769-26-46 17:07:00 Test Item Value Reference Range Interpretation Comments MCH (test code = MCH) 33.1 pg 27.0-31.0 [facility] GvfqfwfIHBSBDNLLK9969-00-08 17:07:0097.9[facility]annHEMATOLOGY 2013-11-20 17:07:0014.2[facility] ZguzexmFHNOCIEZVV0191-68-84 17:07:0042.1[facility] DzmioleLQRQCQBZFE3593-03-02 17:07:009.3[facility] UqcbvkmSVYFCTTRHS3158-29-06 17:07:004.30[facility] WuwmwvdDQZPXCIJLF3428-89-70 17:07:007.7[facility]annCHEM QUSEW7701-10-84 19:25:0047[facility]annCHEM KUQVJ4579-55-29 19:25:001.7 [facility]annCHEM SHXMO6300-12-92 19:25:0014[facility] HermannELECTROLYTES 2013-11-17 19:25:004.3[facility] JososiqIZLHAUVGDI5808-63-56 19:25:0036.8[facility] LpjcnfeXQKROJDSZO2677-15-07 19:25:0097.6[facility] LseogvsKVEWXQZIEB9060-93-79 19:25:00 Test Item Value Reference Range Interpretation Comments MCH (test code = MCH) 33.2 pg 27.0-31.0 [facility] BcqtxleUUDLGDBWBI6887-65-98 19:25:0012.5[facility]annHEMATOLOGY 2013-11-17 19:25:007.7[facility] XppgmovJLFLQNNMOM4325-30-80 19:25:003.77[facility] ZihudqaCRMZDOCOSO6853-40-69 19:25:0014.0[facility] HgnshrtIELFGBWMSR1310-36-66 19:25:49527Newggzyz RopabmxJRGRPEADIM6384-69-03 19:25:007.7[facility] HSZKKJHWIQ4456-50-89 19:25:0034.0[facility] BkaauzjUZZGFPXTCU7418-12-20 19:25:00 5.7[facility] TkbpwgbZEGQONWUIZ8356-99-20 19:25:004.3[facility]annHEMATOLOGY 2013-11-17 19:25:000.0[facility] FhmqterLSMFTOYGDZ1146-73-66 19:25:000.3[facility] IioczqiRRASFQTBQM0368-92-02 19:25:005.1[facility] RavmxueANOECEEXGL9187-57-57 19:25:0016.3[facility] JhacsmzGJSISSTORF0254-16-86 19:25:001.2[facility] LGYZYHGKDW6503-08-65 19:25:000.3[facility] NsoeqgfWPPDDDPUUL0037-52-00 19:25:000.4 [facility] KvsibemTPSHAJZVRX8448-12-09 19:25:0074.0[facility] HermannTOXICOLOGY 2013-11-17 19:25:0024.4[facility] HermannCHEM VJADZ3763-68-30 18:20:0054[facility]annCHEM UIXHH1633-22-35 18:20:001.5[facility] HermannCHEM NLPBY4831-62-69 18:20:0011[facility] VaibudcGIDHIYRVJCLM8467-09-66 18:20:004.5[facility] WTRZWMHKZK7315-10-18 18:20:00 Test Item Value Reference Range Interpretation Comments MCH (test code = MCH) 32.7 pg 27.0-31.0 [facility] JuyepzhPVKPTSVAVQ9885-74-49 18:20:0033.6[facility]annHEMATOLOGY 2013-11-13 18:20:43626Ohbwtbjt VezmwsxGAITGINJBI6744-74-84 18:20:0014.0[facility] LpsnvwdAQKZZRJBXO0831-60-53 18:20:007.4[facility] RpwtnsmXDIWEPKHVM6904-98-77 18:20:0012.2[facility] DawzxsaGGSYFFHGBM0777-76-62 18:20:003.73[facility] TWKQZVBGCT2939-82-66 18:20:0097.6[facility] HtaqradWQMZFIHSLF0273-77-50 18:20:00 36.4[facility] CqqvfqwPMVJRZCGOA5104-83-14 18:20:009.7[facility]annHEMATOLOGY 2013-11-13 18:20:000.1[facility] WmjmezzYXMUNQXKKX8705-11-55 18:20:002.0[facility] RyeaodcWHXOVRGQOO8817-70-64 18:20:000.7[facility] GpfchjsSXPRAKJFYS5635-74-40 18:20:000.4[facility] DkvugmnWJGUXIJNIC8936-10-97 18:20:000.6[facility] FRFKLYZNFS4772-86-54 18:20:006.6[facility] DucxersTJIOBZIZWG7156-14-72 18:20:00 20.5[facility] MxnkqxmXQSFRRQPOT9156-77-98 18:20:007.3[facility]annHEMATOLOGY 2013-11-13 18:20:003.7[facility] PuqhlqdDFNPBOMTMF8808-84-54 18:20:0067.9[facility] QyvwhklPRROSBLZSR6706-65-06 18:20:0024.1[facility]
[2020-11-30 16:44] LABS: Absolute Lymphocytes (CBC) 0.7 K/uL (0.7-4.9); Basophils % 0.3 % (0-1.3); Hematocrit 42.4 % (39.6-49.0); Lymphocytes % 5.2 % (15.3-44.8); MPV 8.3 fL (7.6-11.3); RBC Red Blood Cell Count 4.63 M/uL (4.33-5.43)
[2020-11-30 16:52] LABS: Protime INR 1.01
[2020-11-30 17:10] LABS: ALT/SGPT 17 U/L (12-78); AST/SGOT 15 U/L (15-37); Albumin 3.9 g/dL (3.4-5.0); Alkaline Phosphatase 111 U/L (45-117); BUN Blood Urea Nitrogen 22 mg/dL (7-18); Bicarbonate 17 mmol/L (21-32); Bilirubin Direct < 0.1 mg/dL (0-0.2); Bilirubin Total 0.5 mg/dL (0.2-1.0); Glucose Level 127 mg/dL (74-106); Potassium 3.9 mmol/L (3.5-5.1); Protein, Total 8.1 g/dL (6.4-8.2); Sodium Level 139 mmol/L (136-145)
[2020-11-30] MEDS ORDERED: NA CHLORIDE 0.9% 1,000 ML ONE ×2 (17:13→20:48)
[2020-11-30 18:04] LABS: Blood Morphology Comment NOT SEEN (NOT SEEN); Platelet Estimate ADEQ; White Blood Cell Scan OK (OK)
[2020-11-30 18:08] LABS: Urine Blood 2+ (Negative); Urine Glucose Negative (Negative); Urine Protein 2+ (Negative); Urine Specific Gravity >=1.030 (1.005-1.030)
[2020-11-30 18:34] LABS: Barbiturates NEGATIVE (NEGATIVE); Benzodiazepines NEGATIVE (NEGATIVE); Cocaine NEGATIVE (NEGATIVE); METHAMPHETAM NEGATIVE (NEGATIVE); Methadone NEGATIVE (NEGATIVE); Opiates NEGATIVE (NEGATIVE); Phencyclidine NEGATIVE (NEGATIVE); THC Cannibis POSITIVE (NEGATIVE)
--- NOTE | 2020-11-30 19:01 | RAD REPORT ---
EXAM DESCRIPTION: RAD - Shoulder Left 2 View - 11/30/2020 4:46 pm CLINICAL HISTORY: DEFORMITY COMPARISON: Shoulder Left 2 View dated 10/03/2020 TECHNIQUE: Internal and external rotation views of the left shoulder were obtained. FINDINGS: Anterior dislocation of the humeral head medial and inferior to the bony glenoid. AC joint is normal in appearance. Several small calcific densities are present along the margin of the bony g lenoid. These were present on prior imaging and are probably small bone fragments or soft tissue mine ralization from recurrent dislocation. IMPRESSION: Anterior dislocation left humeral head as detailed.
[2020-11-30] MEDS ORDERED: LEVETIRACETAM 500 MG/5 ML VIAL IV ONE (20:48)
[2020-11-30] MEDS ORDERED: NA CHLORIDE 0.9% 100 ML ONE (20:48)
--- NOTE | 2020-11-30 20:51 | RAD REPORT ---
EXAM DESCRIPTION: CT - Head C Spine Cap Wo Con - 11/30/2020 8:10 pm CLINICAL HISTORY: fall, seizure COMPARISON: Head C Spine Cap Wo Con dated 10/03/2020 TECHNIQUE: Axial [address] head images were obtained. Axial [address] cervical spine images were obtain ed with sagittal and coronal reconstruction images reviewed. Axial 5 mm images of the chest, abdomen and pelvis were obtained. All CT scans are performed using dose optimization technique as appropriate and may include automated exposure control or mA/KV adjustment according to patient size. FINDINGS: No intracranial hemorrhage, mass or edema. No midline shift or abnormal fluid collection. Decreased attenuation cerebral white matter is present, prominent for age but not substantially diffe rent from comparison. Prominent for age arterial tree calcifications are present. Ventricles are norm al size. Mastoid air cells and paranasal sinuses are clear. No skull fracture. Small left lateral sc alp hematoma. Cervical bodies are normal in height and alignment. No fracture or acute bone finding.C5-6 and C6-7 d isc space narrowing and prominent endplate spurring changes seen. Mild C3-4 foraminal stenosis from d isc and endplate degenerative change. Bilateral C5-6 and C6-7 foraminal stenosis.No prevertebral soft tissue thickening or paraspinal mass.Central canal detail is inherently limited on CT imaging. Dense carotid bulb calcifications are present. There is a large 16 millimeter stone along the right l ateral floor the mouth probably a large sialolith. CT chest shows no pneumothorax, pulmonary contusion or pleural fluid collection. No mediastinal hem atoma and the aorta and pulmonary arteries are unremarkable. No chest will mass or abnormal axillary finding. No displaced rib fracture or other significant bony finding. Bony degenerative changes are present. Dense coronary artery calcifications are present. CT abdomen and pelvis show no injury to solid abdominal viscera. Gallbladder and biliary tree are unr emarkable. No bowel injury or significant finding. No free air, free fluid or abnormal stranding. No mass or bulky lymphadenopathy. Right testicle is in the inguinal canal possibly due to a patent ingui nal canal. No urinary bladder abnormality. No acute thoracic, abdominal or pelvic bone finding. Patient has very advanced for age degenerative c hange spanning T12-S1. Patient has very dense calcifications of the arterial tree. IMPRESSION: No intracranial abnormality. 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 A small left scalp hematoma is present. Cervical spine degenerative change present with no acute finding. No acute CT chest finding. No acute CT abdomen or pelvis finding. Additional nonacute findings detailed in the body of the report.
--- NOTE | 2020-11-30 21:14 | EDPHYS ---
Physician Documentation [facility] Name: Karlos Leblanc Age: 54 yrs Sex: Male : 1965 Arrival Date: 11/30/2020 Time: 16:16 Bed 17 Private MD: ED Physician Aaron Pichardo HPI: 11/30 16:22 This 54 yrs old Male presents to ER via EMS with complaints of Seizure. cp 16:22 The patient presents with a history of multiple seizures, reported 5 seizures by EMS. cp Seizure Hx: Cause: unknown. 16:22 Associated injury: The patient did not suffer any apparent associated injury. EMS care: cp none. Current symptoms: confusion, decreased level of consciousness, is arousable but tired. Unable to obtain HPI due to patient appears post ictal. Historical: - Allergies: 16:17 NKDA; jl7 - PMHx: 16:17 Hypertension; Seizures; Diabetes mellitus; jl7 - Immunization history:: Adult Immunizations unknown. - Social history:: Smoking status: unknown. ROS: 16:30 Constitutional: Negative for fever. cp 16:30 Neuro: Positive for altered mental status, history of multiple seizures. cp 16:30 Unable to obtain ROS due to altered mental status. Exam: 16:33 Constitutional: The patient appears in no acute distress, non-toxic, well developed, cp well nourished. 16:33 Head/Face: Normocephalic, atraumatic. cp 16:33 Eyes: Periorbital structures: appear normal, Pupils: equal, round, and reactive to light and accomodation, Conjunctiva: normal, no exudate, no injection, Sclera: no appreciated abnormality, Lids and lashes: appear normal, bilaterally. 16:33 ENT: External ear(s): are unremarkable, Ear canal(s): are normal, clear, TM's: dullness, bilaterally, Nose: is normal, Mouth: Lips: moist, Oral mucosa: moist, Posterior pharynx: Airway: no evidence of obstruction, patent. 16:33 Neck: C-spine: vertebral tenderness, is not appreciated, crepitus, is not appreciated. 16:33 Chest/axilla: Inspection: normal, Palpation: is normal, no crepitus, no tenderness. 16:33 Cardiovascular: Rate: normal, Rhythm: regular. 16:33 Respiratory: the patient does not display signs of respiratory distress, Respirations: normal, no use of accessory muscles, no retractions, labored breathing, is not present, Breath sounds: are clear throughout, no decreased breath sounds, no stridor, no wheezing. 16:33 Abdomen/GI: Inspection: abdomen appears normal, Palpation: abdomen is soft and non-tender, in all quadrants. 16:33 Neuro: Orientation: to person, Mentation: able to follow commands, confused, Motor: moves all fours, strength is normal. 17:10 ECG was reviewed by the Attending Physician. Vital Signs: 16:19 BP 148 / 72; Pulse 80; Resp 14; Temp 98; Pulse Ox 99% ; jl7 17:13 BP 158 / 72; Pulse 75; Resp 15; Pulse Ox 98% ; jl7 18:15 BP 157 / 76; Pulse 78; Resp 15; Pulse Ox 99% ; jl7 19:50 BP 160 / 68; Pulse 97; Resp 18; Pulse Ox 97% on R/A; jb4 20:20 BP 118 / 46; Pulse 84; Resp 16; Pulse Ox 95% on R/A; jb4 21:00 BP 116 / 43; Pulse 79; Resp 16; Pulse Ox 99% on R/A; jb4 22:30 BP 138 / 58; Pulse 66; Resp 18; Pulse Ox 97% on R/A; jb4 23:15 BP 133 / 65; Pulse 72; Resp 15; Pulse Ox 97% on R/A; jb4 MDM: 16:21 Patient medically screened. riya 17:00 Differential diagnosis: cerebral vascular accident, drug overdose, cardiac arrhythmia, cp seizure. 20:45 Physician consultation: Jose TELLES was contacted at 20:45, regarding admission, cp to the telemetry unit. patient's condition, and will see patient in ED, shortly. 21:15 Data reviewed: vital signs, nurses notes, lab test result(s), EKG, radiologic studies, cp CT scan. 21:15 Test interpretation: by ED physician or midlevel provider: ECG. 11/30 16:21 Order name: Acetaminophen; Complete Time: 18:20 11/30 16:21 Order name: Basic Metabolic Panel; Complete Time: 18:20 11/30 18:20 Interpretation: Normal except: CO2 17; CL 109; GLUC 127; BUN 22; CRE 1.76; GFR 40. cp 11/30 16:21 Order name: CBC with Diff; Complete Time: 18:20 cp 11/30 18:21 Interpretation: Normal except: WBC 13.70; RDW 15.5; NERY% 90.5; LYM% 5.2; NEUT A 12.4. cp 11/30 16:21 Order name: ETOH Level; Complete Time: 18:20 cp 11/30 16:21 Order name: Hepatic Function; Complete Time: 18:20 cp 11/30 16:21 Order name: PT-INR; Complete Time: 18:20 cp 11/30 16:21 Order name: Ptt, Activated; Complete Time: 18:20 cp 11/30 16:21 Order name: Salicylate; Complete Time: 18:20 cp 11/30 16:21 Order name: Urine Drug Screen; Complete Time: 19:08 cp 11/30 19:09 Interpretation: Normal except: THC POSITIVE. cp 11/30 18:04 Order name: CBC Smear Scan; Complete Time: 18:20 EDMS 11/30 18:08 Order name: Urine Dipstick-Ancillary; Complete Time: 18:20 EDMS 11/30 19:08 Interpretation: Normal except: UKET Trace; UBLD 2+; UPROT 2+. cp 11/30 20:58 Order name: COVID-19 : Document "Date of Symptom Onset" if Symptomatic. jb4 11/30 22:53 Order name: SARS-COV-2 RT PCR EDMS 12/01 05:41 Order name: CBC with Automated Diff EDMS 11/30 16:21 Order name: EKG; Complete Time: 16:22 cp 11/30 16:21 Order name: EKG - Nurse/Tech; Complete Time: 17:11 cp 11/30 16:21 Order name: XRAY Shoulder LEFT 2 view; Complete Time: 19:08 cp 11/30 19:53 Order name: CT Traumagram (Head C Spine CAP wo con); Complete Time: 21:14 cp 12/01 06:22 Order name: Comprehensive Metabolic Panel EDMS 12/01 06:23 Order name: Lipid Profile EDMS 12/01 06:23 Order name: T4 Free EDMS 12/01 06:23 Order name: Magnesium EDMS 12/01 06:23 Order name: Thyroid Stimulating Hormone EDMS 12/01 07:18 Order name: Hemoglobin A1c [facility] 11/30 16:21 Order name: IV Saline Lock; Complete Time: 16:48 cp 11/30 16:21 Order name: Labs collected and sent; Complete Time: 16:48 11/30 16:21 Order name: Suicide Screening ([place]); Complete Time: 16:48 cp 11/30 16:21 Order name: Urine Dipstick-Ancillary (obtain specimen); Complete Time: 16:48 cp 11/30 16:21 Order name: Seizure Precautions; Complete Time: 16:48 cp EC:10 Rate is 72 beats/min. Rhythm is regular. TX interval is normal. QRS interval is normal. cp QT interval is normal. T waves are Inverted in lead aVR. Interpreted by me. Reviewed by me. Administered Medications: 17:12 Drug: NS 0.9% 1000 ml Route: IV; Rate: 1 bolus; Site: right forearm; jl7 18:15 Follow up: Response: No adverse reaction; IV Status: Completed infusion; IV Intake: jl7 1000ml 20:44 Follow up: Response: No adverse reaction; IV Status: Completed infusion; IV Intake: jb4 1000ml 20:35 Drug: Keppra (levETIRAcetam) 1000 mg Route: IV; Rate: calculated rate; Site: right jb4 wrist; 20:44 Drug: NS 0.9% 1000 ml Route: IV; Rate: 1 bolus; Site: right wrist; jb4 21:50 Drug: Ativan (LORazepam) 2 mg Route: IVP; Site: right hand; jb4 22:05 Not Given (Physician Discretion): Ativan (LORazepam) 1 mg IVP once jb4 Disposition: 21:15 Chart complete. 12/01 09:33 Co-signature as Attending Physician, Aaron Pichardo MD I agree with the assessment and riya plan of care. Disposition Summary: 11/30/20 21:13 Hospitalization Ordered Hospitalization Status: Inpatient Admission cp Provider: Abner Mota cp Condition: Stable cp Problem: an ongoing problem cp Symptoms: have improved cp Bed/Room Type: Standard cp Location: [facility] ER HOLD(11/30/20 23:50) bb Room Assignment: ERHOLD-(11/30/20 23:50) bb Diagnosis - Other seizures cp Forms: - Medication Reconciliation Form cp - SBAR form cp Signatures: Dispatcher [employer] EDMS Aaron Pichardo MD MD cha Ballard, Brenda, RN RN bb Aaron Meek PA PA cp Bryson, James, RN RN jb4 Davy Garza RN RN jl7 Corrections: (The following items were deleted from the chart) 11/30 19:59 19:15 Head Brain Wo Cont+CT.RAD.BRZ ordered. EDCA EDCA 23:50 21:13 Telemetry/MedSurg (Inpatient) cp kyle 23:50 21:13 cp kyle
--- NOTE | 2020-11-30 21:14 | ER ---
Nurse's Notes [facility] Name: Karlos Leblanc Age: 54 yrs Sex: Male : 1965 Arrival Date: 11/30/2020 Time: 16:16 Bed 17 Private MD: Diagnosis: Other seizures Presentation: 11/30 16:16 Chief complaint: EMS states: called out by pt's roommate for having 5 seizures today. jl7 Also has possible left shoulder dislocation. Pt is currently post ictal. Coronavirus screen: At this time, unable to obtain information related to travel outside the [place] Ebola Screen: Unable to complete the Ebola screening because: The patient is disoriented. Risk Assessment: Do you want to hurt yourself or someone else? Patient reports no desire to harm self or others. Onset of symptoms was November 30, 2020. 16:16 Method Of Arrival: EMS: [facility] 16:16 Acuity: KENIA 3 jl7 Historical: - Allergies: 16:17 NKDA; jl7 - PMHx: 16:17 Hypertension; Seizures; Diabetes mellitus; jl7 - Immunization history:: Adult Immunizations unknown. - Social history:: Smoking status: unknown. Screenin:40 Abuse screen: Denies threats or abuse. Denies injuries from another. Nutritional jl7 screening: No deficits noted. Tuberculosis screening: No symptoms or risk factors identified. Fall Risk No fall in past 12 months (0 pts). Secondary diagnosis (15 points) seizures, IV access (20 points). Ambulatory Aid- None/Bed Rest/Nurse Assist (0 pts). Gait- Impaired (20 pts.). Mental Status- Overestimates/Forgets Limitations (15 pts.). Total Mota Fall Scale indicates High Risk Score (45 or more points). Fall prevention measures have been instituted. Side Rails Up X 2 Placed Close to Nursing Station Frequent Obs/Assessments Occuring As available patient and family educated on Fall Prevention Program and Strategies. Assessment: 16:40 General: Appears in no apparent distress. uncomfortable, unkempt, Behavior is agitated, jl7 restless. Pain: Unable to use pain scale. Does not appear to understand pain scale. Neuro: Level of Consciousness is post ictal, Oriented to person. Cardiovascular: Patient's skin is warm and dry. Respiratory: Airway is patent Respiratory effort is even, unlabored, Respiratory pattern is regular, symmetrical. Derm: Skin is pink, warm \\T\\ dry. 17:45 Reassessment: Patient appears in no apparent distress at this time. Neuro: Level of jl7 Consciousness is awake, confused, Oriented to person, place. 18:25 Reassessment: Pt reports "I shit on the floor." Pt ambulated to bathroom, with steady jl7 gate, at this time. 19:00 Reassessment: Pt remains in the restroom at this time. Is awake and alert, answering jb4 questions appropriately. 19:45 Reassessment: Pt found in the restroom laying face down with snoring respirations. jb4 blood noted to the right hand and forehead provider assisting with bringing pt back to bed. See [facility] for orders. 20:20 Reassessment: Pt is now awake and alert x2-3. responds to verbal stimuli. Respirations jb4 are even and unlabored with no s/s of pain or distress noted. Hematoma noted to the left side of the head. 20:47 Reassessment: Hospitalist at the bedside. jb4 21:30 Reassessment: Pt became more agitated, pt is alert and oriented x2. Stating " I have to jb4 pee, I want to go to the bathroom." Pt iformed that he cannot ambulate to the restroom at this time due to prior fall and medications being given. Pt states " Fuck you, get the fuck away from me, I want to go to the [facility] bathroom." Pt given a urinal and now sitting on the side of the end of the bed. Continues to swear and medical staff. Provider and charge nurse notified of situation, code rodri called, see [facility] for orders. 22:30 Reassessment: Pt is resting in bed with eyes closed, respirations are even and jb4 unlabored with no s/s of pain or distress noted. 23:30 Reassessment: Patient appears in no apparent distress at this time. No changes from jb4 previously documented assessment. Patient and/or family updated on plan of care and expected duration. Pain level reassessed. 12/01 00:04 Reassessment: Patient appears in no apparent distress at this time. No changes from jb4 previously documented assessment. Patient and/or family updated on plan of care and expected duration. Pain level reassessed. Vital Signs: 11/30 16:19 BP 148 / 72; Pulse 80; Resp 14; Temp 98; Pulse Ox 99% ; jl7 17:13 BP 158 / 72; Pulse 75; Resp 15; Pulse Ox 98% ; jl7 18:15 BP 157 / 76; Pulse 78; Resp 15; Pulse Ox 99% ; jl7 19:50 BP 160 / 68; Pulse 97; Resp 18; Pulse Ox 97% on R/A; jb4 20:20 BP 118 / 46; Pulse 84; Resp 16; Pulse Ox 95% on R/A; jb4 21:00 BP 116 / 43; Pulse 79; Resp 16; Pulse Ox 99% on R/A; jb4 22:30 BP 138 / 58; Pulse 66; Resp 18; Pulse Ox 97% on R/A; jb4 23:15 BP 133 / 65; Pulse 72; Resp 15; Pulse Ox 97% on R/A; jb4 ED Course: 16:16 Patient arrived in ED. jl7 16:17 Triage completed. jl7 16:17 Arm band placed on. jl7 16:20 Aaron Meek PA is PHCP. cp 16:20 Aaron Pichardo MD is Attending Physician. cp 16:25 Davy Garza RN is Primary Nurse. jl7 16:40 Patient has correct armband on for positive identification. Bed in low position. Call jl7 light in reach. Side rails up X 1. Seizure precautions initiated. Pulse ox on. NIBP on. 16:40 Initial lab(s) drawn, by me, sent to lab. Maintain EMS IV. Dressing intact. Good blood jl7 return noted. Site clean \\T\\ dry. Gauge \\T\\ site: 20 right FA. 16:45 XRAY Shoulder LEFT 2 view In Process Unspecified. EDMS 19:15 Primary Nurse role handed off by Davy Garza RN [email or web address] 20:10 CT Traumagram (Head C Spine CAP wo con) In Process Unspecified. EDMS 20:17 Jason Cabrera, RN is Primary Nurse. jb4 21:13 Abner Mota DO is Hospitalizing Provider. cp 23:30 No provider procedures requiring assistance completed. Patient admitted, IV remains in jb4 place. 12/01 08:03 Primary Nurse role handed off by Jason Cabrera RN 09:16 Marah Macias, TAVO is Primary Nurse. tr6 Administered Medications: 11/30 17:12 Drug: NS 0.9% 1000 ml Route: IV; Rate: 1 bolus; Site: right forearm; jl7 18:15 Follow up: Response: No adverse reaction; IV Status: Completed infusion; IV Intake: jl7 1000ml 20:44 Follow up: Response: No adverse reaction; IV Status: Completed infusion; IV Intake: jb4 1000ml 20:35 Drug: Keppra (levETIRAcetam) 1000 mg Route: IV; Rate: calculated rate; Site: right jb4 wrist; 20:44 Drug: NS 0.9% 1000 ml Route: IV; Rate: 1 bolus; Site: right wrist; jb4 21:50 Drug: Ativan (LORazepam) 2 mg Route: IVP; Site: right hand; jb4 22:05 Not Given (Physician Discretion): Ativan (LORazepam) 1 mg IVP once jb4 Intake: 18:15 IV: 1000ml; Total: 1000ml. jl7 20:44 IV: 1000ml; Total: 2000ml. jb4 Outcome: 21:13 Decision to Hospitalize by Provider. cp 23:30 Admitted to ER Hold. Please see [facility] for further documentation. jb4 23:30 Condition: stable 23:30 Discharge instructions given to patient, Instructed on the need for admit. 12/01 09:16 Patient left the ED. tr6 Signatures: Dispatcher [employer] EDMS Aaron Meek PA PA cp Jason Cabrera RN RN jb4 Davy Garza RN RN jl7 Castro Lozada 2 Mary Paiz Marah Macias, RN RN tr6 Corrections: (The following items were deleted from the chart) 11/30 16:21 16:16 Chief complaint: EMS states: called out by pt's roommate for having 5 seizures jl7 today. Pt is currently post ictal jl7
--- NOTE | 2020-11-30 21:26 | P.HP ---
Certification for Inpatient Patient admitted to: Observation With expected LOS: <2 Midnights Patient will require the following post-hospital care: None Practitioner: I am a practitioner with admitting privileges, knowledge of patient current condition, hospital course, and medical plan of care. 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 Patient lives with a roommate who reported that he had 5 seizures today, upon arrival to the emergency department patient was postictal, reported by ER staff to have another seizure in the emergency department. Labs significant for white blood cell count 13.7 chloride 109 CO2 17 BUN 22, creatinine 1.76 GFR [address] trauma gram negative for acute findings but does again demonstrate chronic dislocation of left humeral head. Patient still slightly confused, oriented x2 at this time. ED provider wishes to admit under observation for seizures. Patient reports that he has been compliant with Keppra 500 mg p.o. b.i.d.. Case discussed with neurology. Allergies No Known Allergies Allergy (Verified 09/02/19 00:22) Home Medications: Alprazolam [Xanax] 1 tab PO BEDTIME 10/04/20 Gabapentin 1 tab PO BID 10/04/20 Levetiracetam [Keppra] 1 tab PO DAILY 10/04/20 lisinopriL [Lisinopril] 1 tab PO DAILY 10/04/20 - Past Medical/Surgical History Diabetic: No -: HTN -: CHF, diastolic dysfunction -: COPD -: CAD -: PVD -: Left partial foot amputation -: History of osteomyelitis -: History of drug use -: Alcohol abuse -: Tobacco abuse -: GERD -: Rt great toe & 2nd toe amputated-Dec 2015 -: Left partial foot amputation-January 2019 Psychosocial/ Personal History: Patient currently lives in a [place] - Family History Father -: Cancer Mother -: Cancer - Social History Smoking Status: Unknown if ever smoked Alcohol use: Yes CD- Drugs: No Caffeine use: Yes Place of Residence: Home Review of Systems is unable to be obtained Physical Examination - Physical Exam General: Alert, In no apparent distress, Oriented x2, Other (Oriented x2, agitated, verbally aggressive) HEENT: Atraumatic, PERRLA, Other (Mucous membranes dry) Neck: Supple, 2+ carotid pulse no bruit, No LAD, Without JVD or thyroid abnormality Respiratory: Clear to auscultation bilaterally, Normal air movement Cardiovascular: Regular rate/rhythm, Normal S1 S2 Gastrointestinal: Normal bowel sounds, No tenderness Musculoskeletal: No tenderness Integumentary: No rashes Neurological: Normal speech, Normal strength at 5/5 x4 extr, Normal tone, Normal affect - Studies Laboratory Data (last 24 hrs) 11/30/20 16:34: PT 11.6, INR 1.01, APTT 33.2 11/30/20 16:34: WBC 13.70 H, Hgb 14.4, Hct 42.4, Plt Count 180 11/30/20 16:34: Sodium 139, Potassium 3.9, BUN 22 H, Creatinine 1.76 H, Glucose 127 H, Total Bilirubin 0.5, AST 15, ALT 17, Alkaline Phosphatase 111 Assessment and Plan - Plan Assessment Seizures with history of seizure disorder Acute kidney injury Diabetes mellitus type 2 Chronic diastolic congestive heart failure 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 b.i.d., this was confirmed with patient. Patient reports he has been compliant with Keppra 500 mg p.o. b.i.d., neurology was consulted and contacted. Neurology recommends increasing Keppra to 750 mg p.o. b.i.d. and monitor overnight. Seizure precautions, fall precautions, bed check in place. DVT prophylaxis Lovenox 40 mg subcutaneous once daily. Acute kidney injury: Continue with IV fluids overnight recheck chemistry with morning labs. Consult nephrology as necessary. Diabetes mellitus type 2: A.c. HS Accu-Cheks, sliding scale insulin therapy. 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 Discharge Plan: Home Plan to discharge in: 24 Hours - Advance Directives Does patient have a Living Will: No Does patient have a Durable POA for Healthcare: No - Code Status/Comfort Care Code Status Assessed: Yes (Full code) Critical Care: No Time Spent Managing Pts Care (In Minutes): 55
[2020-11-30] MEDS ORDERED: LORazepam 2 MG/ML VIAL ONE (22:00)
[2020-12-01] MEDS ORDERED: LORazepam 2 MG/ML VIAL IV PRN (01:00)
[2020-12-01] MEDS ORDERED: INSULIN -REGULAR HUMAN 50 UNIT/0.5 ML ML SQ SCH (01:00)
[2020-12-01] MEDS ORDERED: levETIRAcetam 500 MG TAB PO SCH (01:00)
[2020-12-01] MEDS ORDERED: ONDANSETRON 4 MG/2 ML VIAL IV PRN (01:00)
[2020-12-01] MEDS ORDERED: NA CHLORIDE 0.9% 1,000 ML IV SCH (01:00)
[2020-12-01] MEDS ORDERED: NA CHLORIDE 0.9% 1,000 ML ONE (02:31)
[2020-12-01 04:28] VITALS: TEMP 99.1
[2020-12-01 05:38] LABS: Absolute Lymphocytes (CBC) 1.7 K/uL (0.7-4.9); Basophils % 0.7 % (0-1.3); Hematocrit 37.3 % (39.6-49.0); Lymphocytes % 16.7 % (15.3-44.8); MPV 8.4 fL (7.6-11.3); RBC Red Blood Cell Count 4.06 M/uL (4.33-5.43)
[2020-12-01 06:13] LABS: Albumin 3.4 g/dL (3.4-5.0); Bilirubin Total 0.6 mg/dL (0.2-1.0); Magnesium 2.4 mg/dL (1.8-2.4); Potassium 3.3 mmol/L (3.5-5.1); Protein, Total 6.9 g/dL (6.4-8.2); Thyroid Stimulating Hormone 1.07 uIU/mL (0.360-3.740)
--- NOTE | 2020-12-01 06:19 | P.DS ---
Admission Date: 11/30/20 Discharge Date: 12/01/20 Primary Care Provider: none Disposition: ROUTINE DISCHARGE Discharge Condition: GOOD Reason for Admission: Seizure Consultations: Neurology-Dr. Escobar Procedures: CT scan: FINDINGS: No intracranial hemorrhage, mass or edema. No midline shift or abnormal fluid collection. Decreased attenuation cerebral white matter is present, prominent for age but not substantially different from comparison. Prominent for age arterial tree calcifications are present. Ventricles are normal size. Mastoid air cells and paranasal sinuses are clear. No skull fracture. Small left lateral scalp hematoma. Cervical bodies are normal in height and alignment. No fracture or acute bone finding.C5-6 and C6-7 disc space narrowing and prominent endplate spurring changes seen. Mild C3-4 foraminal stenosis from disc and endplate degenerative change. Bilateral C5-6 and C6-7 foraminal stenosis.No prevertebral soft tissue thickening or paraspinal mass.Central canal detail is inherently limited on CT imaging. Dense carotid bulb calcifications are present. There is a large 16 millimeter stone along the right lateral floor the mouth probably a large sialolith. CT chest shows no pneumothorax, pulmonary contusion or pleural fluid collection. No mediastinal hematoma and the aorta and pulmonary arteries are unremarkable. No chest will mass or abnormal axillary finding. No displaced rib fracture or other significant bony finding. Bony degenerative changes are present. Dense coronary artery calcifications are present. CT abdomen and pelvis show no injury to solid abdominal viscera. Gallbladder and biliary tree are unremarkable. No bowel injury or significant finding. No free air, free fluid or abnormal stranding. No mass or bulky lymphadenopathy. Right testicle is in the inguinal canal possibly due to a patent inguinal canal. No urinary bladder abnormality. No acute thoracic, abdominal or pelvic bone finding. Patient has very advanced for age degenerative change spanning T12-S1. Patient has very dense calcifications of the arterial tree. IMPRESSION: No intracranial abnormality. 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 A small left scalp hematoma is present. Cervical spine degenerative change present with no acute finding. No acute CT chest finding. No acute CT abdomen or pelvis finding. Additional nonacute findings detailed in the body of the report. Xray: FINDINGS: Anterior dislocation of the humeral head medial and inferior to the bony glenoid. AC joint is normal in appearance. Several small calcific densities are present along the margin of the bony glenoid. These were present on prior imaging and are probably small bone fragments or soft tissue mineralization from recurrent dislocation. IMPRESSION: Anterior dislocation left humeral head as detailed. 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 Patient lives with a roommate who reported that he had 5 seizures today, upon arrival to the emergency department patient was postictal, reported by ER staff to have another seizure in the emergency department. Labs significant for white blood cell count 13.7 chloride 109 CO2 17 BUN 22, creatinine 1.76 GFR [address] trauma gram negative for acute findings but does again demonstrate chronic dislocation of left humeral head. Patient still slightly confused, oriented x2 at this time. Patient admitted for further evaluation and treatment. Hospital Course: Patient presented with seizures. Patient with history of seizure disorder. Patient takes Keppra 500 mg [address] scan unremarkable of the head except for small left scalp hematoma. Case was discussed with neurology. His medicationKeppra was increased to 750 mg 1 pill twice daily. The patient was monitored overnight. No further seizures identified. Patient also had some acute renal injury likely from dehydration. This has improved. Patient appears to be back to his baseline level. At discharge the patient will continue with Keppra 750 mg 1 pill twice daily. Recommend to recheck Keppra level within 1 week. Patient may follow-up with neurology in 1 to 2 weeks to follow-up his hospitalization and continue his care. Will also try to arrange for the patient to establish care locally to monitor his chronic medical problems. Patient with chronic anterior dislocation of the left humeral head. This appears stable. Recommend follow-up with orthopedics as an outpatient to further address. Patient with chronic diastolic CHF, CAD, hypertension. At discharge patient will continue with the 1500 cc/day fluid restriction and low-salt diet. Recommend to monitor his weight daily. Patient will continue with his current medicationlisinopril 20 mg daily. Recommend to maintain blood pressure less than 130/80. May hold his blood pressure medication if blood pressure systolic less than 110. Further adjustment can be done by his PCP. Patient with history of alcohol, tobacco and drug abuseTHC. Cessation education provided. THC education cessation provided. Patient with history of chronic pain. At discharge patient will continue with gabapentin 600 mg 1 pill twice daily. Patient also has a history of depression with anxiety. At discharge patient will continue with Xanax 1 mg at bedtime as needed for agitation or anxiety. Vital Signs/Physical Exam: Temp Pulse Resp BP Pulse Ox 99.1 F 74 16 114/49 L 97 12/01/20 04:00 12/01/20 04:00 12/01/20 04:00 12/01/20 04:00 12/01/20 04:00 General: Alert, In no apparent distress, Oriented x3, Cooperative HEENT: Atraumatic Neck: Supple Respiratory: Clear to auscultation bilaterally, Normal air movement Cardiovascular: Normal pulses, Regular rate/rhythm Gastrointestinal: Normal bowel sounds, No tenderness, No masses, No rebound, No guarding Musculoskeletal: No tenderness, No warmth Neurological: Normal speech, Normal strength at 5/5 x4 extr, Normal tone, Normal affect Laboratory Data at Discharge: WBC 10.40 K/uL (4.3-10.9) D 12/01/20 05:10 Hgb 12.6 g/dL (13.6-17.9) L 12/01/20 05:10 Hct 37.3 % (39.6-49.0) L 12/01/20 05:10 Plt Count 169 K/uL (152-406) 12/01/20 05:10 PT 11.6 SECONDS (9.5-12.5) 11/30/20 16:34 INR 1.01 11/30/20 16:34 APTT 33.2 SECONDS (24.3-36.9) 11/30/20 16:34 Sodium 139 mmol/L (136-145) 11/30/20 16:34 Potassium 3.9 mmol/L (3.5-5.1) 11/30/20 16:34 BUN 22 mg/dL (7-18) H 11/30/20 16:34 Creatinine 1.76 mg/dL (0.55-1.3) H 11/30/20 16:34 Glucose 127 mg/dL (74-106) H 11/30/20 16:34 Total Bilirubin 0.5 mg/dL (0.2-1.0) 11/30/20 16:34 AST 15 U/L (15-37) 11/30/20 16:34 ALT 17 U/L (12-78) 11/30/20 16:34 Alkaline Phosphatase 111 U/L (45-117) 11/30/20 16:34 Home Medications: Alprazolam [Xanax] 1 tab PO BEDTIME 10/04/20 Gabapentin 1 tab PO BID 10/04/20 lisinopriL [Lisinopril] 1 tab PO DAILY 10/04/20 levETIRAcetam [Keppra*] 750 mg PO BID #90 tab 12/01/20 New Medications: levETIRAcetam [Keppra*] 750 mg PO BID #90 tab Physician Discharge Instructions: Patient presented with seizures. Patient with history of seizure disorder. Patient takes Keppra 500 mg [address] scan unremarkable of the head except for small left scalp hematoma. Case was discussed with neurology. His medicationKeppra was increased to 750 mg 1 pill twice daily. The patient was monitored overnight. No further seizures identified. Patient also had some acute renal injury likely from dehydration. This has improved. Patient appears to be back to his baseline level. At discharge the patient will continue with Keppra 750 mg 1 pill twice daily. Recommend to recheck Keppra level within 1 week. Patient may follow-up with neurology in 1 to 2 weeks to follow-up his hospitalization and continue his care. Will also try to arrange for the patient to establish care locally to monitor his chronic medical problems. Patient with chronic anterior dislocation of the left humeral head. This appears stable. Recommend follow-up with orthopedics as an outpatient to further address. Patient with chronic diastolic CHF, CAD, hypertension. At discharge patient will continue with the 1500 cc/day fluid restriction and low-salt diet. Recommend to monitor his weight daily. Patient will continue with his current medicationlisinopril 20 mg daily. Recommend to maintain blood pressure less than 130/80. May hold his blood pressure medication if blood pressure systolic less than 110. Further adjustment can be done by his PCP. Patient with history of alcohol, tobacco and drug abuseTHC. Cessation education provided. THC education cessation provided. Patient with history of chronic pain. At discharge patient will continue with gabapentin 600 mg 1 pill twice daily. Patient also has a history of depression with anxiety. At discharge patient will continue with Xanax 1 mg at bedtime as needed for agitation or anxiety. Diet: AHA Activity: Fall precautions Followup: NONE,NONE [Primary Care Provider] - Time spent managing pt's care (in minutes): 55
[2020-12-01 06:47] VITALS: BMI 24.3
[2020-12-01 08:06] VITALS: BP 121/50
[2020-12-01] MEDS ORDERED: ENOXAPARIN 40 MG/0.4 ML SQ SCH (09:00)
[2020-12-01 09:33] VITALS: O2SAT 97
--- NOTE | 2020-12-01 13:01 | EKG ---
Test Date: 2020-11-30 Test Time: 17:01:15 [employer]: CONNOR MEASUREMENT RESULTS: Intervals: Rate: 72 ID: [id number] QRSD: 96 QT: 368 QTc: 402 [place]: P: 72 ID: [id number] QRS: 47 T: 59 INTERPRETIVE STATEMENTS: Normal sinus rhythm Possible Left atrial enlargement Incomplete right bundle branch block Borderline ECG Compared to ECG 10/03/2020 13:26:54 Incomplete right bundle-branch block now present Sinus bradycardia no longer present Electronically Signed On 12-01-20 12:59:24 CDT by Bill Clark
== END 2020-12-01 09:15 | disposition home or self-care (01) ==
LOC: ER 16:15 → ERHOLD 21:12
PROVIDERS: ADMIT Family Medicine; ATTEND Family Medicine
DX: G40.909 Epilepsy, unspecified, not intractable, without status epilepticus (principal); S42.125 Nondisplaced fracture of acromial process, left shoulder; M24.412 Recurrent dislocation, left shoulder; S00.03XA Contusion of scalp, initial encounter; N17.9 Acute kidney failure, unspecified; Z20.822 Contact with and (suspected) exposure to COVID-19; I11.0 Hypertensive heart disease with heart failure; I50.32 Chronic diastolic (congestive) heart failure; I25.10 Atherosclerotic heart disease of native coronary artery without angina pectoris; F41.8 Other specified anxiety disorders; G89.29 Other chronic pain; J44.9 Chronic obstructive pulmonary disease, unspecified; Z89.432 Acquired absence of left foot; E11.51 Type 2 diabetes mellitus with diabetic peripheral angiopathy without gangrene; Z89.411 Acquired absence of right great toe; Z89.421 Acquired absence of other right toe(s); Z72.0 Tobacco use; X58.XXXA Exposure to other specified factors, initial encounter
CPT/HCPCS: 93005; 85025 ×2; 80048; 36415; 80320; 83735; 80329 ×2; 85610; 80061; 80076; 85730; 84443; 81003; 83036; 84439; 80053; 80307; 70450; 71250; 72125; 73030; 99285; U0003; J1953; J7030 ×3; G0378 ×3

== ENCOUNTER 2020-12-09 16:27 | Observation (INO) | payer OTHER ==
--- OUTSIDE RECORDS SUMMARY | 2020-12-09 16:35 | XMS REPORT | Continuity of Care Document ---
:1965 Author Organization [facility] t Address [address] [place] [address] Care Team Providers Name Role Phone Janette POSADAS Attending Clinician JANETTE Attending Clinician Unavailable ARIImtiaz Attending Clinician Unavailable SANTIAGO SEGURA Attending Clinician Unavailable Jeff Pierce Attending Clinician Joseph Diaz Attending Clinician Unavailable Mike Torres Attending Clinician Sundar Warner Attending Clinician Anatoliy Fry Attending Clinician Hermse Gleason Attending Clinician ARIF Admitting Clinician Unavailable SANTIAGO SEGURA Admitting Clinician Unavailable Jeff Pierce Admitting Clinician Mike Torres Admitting Clinician Payers Payer Name Policy Type Policy Number Effective Date Expiration Date S briseida AETNA - MEDICARE [id number] 2016 AARON Carpenter ukomero MGD CAREAETNA 00:00:00 - Medical MEDICARE HMO Center [id number], [place] [id number] Contracted Problems Condition Condition Condition Status Onset [...] l ANEMIA 00:00: Kai 00 Active 04/04/2016 [facility] OTHER Diagnosis Active 2015-052016-03-13 Mem oria 19:39:00 l OTHER 00:00: [place] 00 Active 03/13/2016 [place] FOOT Diagnosis Active 2016-02-12 Mem oria GANGRENE 01-30 20:08:00 l FOOT 00:00: [place] GANGRENE 00 Active 01/31/2016 [place] LEFT FOOT Diagnosis Active 2016-01-31 Memoria SORES 01-30 22:38:00 l LEFT 00:00: Kai FOOT SORES 00 Active 01/31/2016 [place] CP Diagnosis Active 2015-02-15 Mem oria 02-15 16:10:00 l CP 00:00: [place] 00 Active 02/15/2015 [place] CHEST PAIN Diagnosis Active 2015-02-15 Memoria 02-15 18:21:00 l CHEST 00:00: Kai PAIN 00 Active 02/15/2015 [place] LEFT WRIST Diagnosis Active 2015-02-09 Memoria PAIN 9-15 16:02:00 l LEFT 00:00: [place] WRIST PAIN 00 Active 02/09/2015 [facility] AMS Diagnosis Active 2015-01-23 Mem oria 01-23 15:36:00 l AMS 00:00: Kai 00 Active 01/23/2015 [facility] WOUND Diagnosis Active 2014-02-12 Mem oria INFECTION 10-20 13:06:00 l V WOUND 00:00: Kai NECFAS;CHR INFECTION 00 ONIC V OSTEOMY NECFAS;CHR ONIC OSTEOMY Active 10/20/2013 [facility] Acute Problem Active 2016-04-08 Memor ia osteomyeli 03:42:03 l tis Acute [place] (disorder) osteomyeli tis (disorder) Active Problem 04/08/2016 [facility] Congestive Problem Active 2016-04-08 M emoria heart 03:42:03 l failure [place] (disorder) Congestive heart failure (disorder) Active Problem 04/08/2016 [facility] Hypertensi Problem Active 2016-04-08 M emoria ve 03:42:03 l disorder, [place] systemic Hypertensi arterial ve (disorder) disorder,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 (disorder) Active Problem 04/08/2016 [facility] Bronchitis Problem Active 2016-04-08 M emoria (disorder) 03:42:03 l Kai Bronchitis (disorder) Active Problem 04/08/2016 [facility] Chronic Problem Active 2016-04-08 Ed bandar obstructiv 03:42:03 l e lung Chronic [place] disease obstructiv (disorder) e lung disease (disorder) Active Problem 04/08/2016 [facility] History of Problem Active 2016-04-08 M emoria - 03:42:03 l infectious History Her cook disease of - (context-d infectious ependent disease category) (context-d ependent category) Active Problem 04/08/2016 [facility] History of Problem Active 2016-04-08 M emoria amputation 03:42:03 l of lesser History Herm delisa toe of (situation amputation ) of lesser toe (situation ) Active Problem 04/08/2016 [facility] History of Problem Active 2016-04-08 emoria - 03:42:03 l cardiovasc History Her cook ular of - disease cardiovasc (context-d ular ependent disease category) (context-d ependent category) Active Problem 04/08/2016 [facility] Benign Problem Active 2016-04-08 Memor ia prostatic 03:42:03 l hyperplasi Benign Herm delisa a prostatic (disorder) hyperplasi a (disorder) Active Problem 04/08/2016 [facility] Epistaxis Problem Active 2016-04-08 Me moria (disorder) 03:42:03 l Kai Epistaxis (disorder) Active Problem 04/08/2016 [facility] CELLULITIS Diagnosis Active 2014-02-12 Memoria OF FOOT 13:06:00 l Kai CELLULITIS OF FOOT Active [facility] AC Diagnosis Active 2014-02-12 Mem oria OSTEOMYELI 13:06:00 l TIS-UNSPEC AC Raudel n OSTEOMYELI TIS-UNSPEC Active [facility] CHEST PAIN Diagnosis Active 2015-02-15 Memoria NOS 18:21:00 l CHEST Kai PAIN NOS Active [facility] GANGRENE, Diagnosis Active 2016-02-12 Memoria NOT 20:08:00 l ELSEWHERE [place] CLASSIFIED GANGRENE, NOT ELSEWHERE CLASSIFIED Active [facility] ANEMIA, Diagnosis Active 2016-04-05 Me moria UNSPECIFIE 09:38:00 l D ANEMIA, Kai UNSPECIFIE D Active [facility] History of Past Illness Condition Condition Condition Status Onset Resolution Last Treating Co mments Source Name Details Category Date Date Treatment Clinician Date Discharge Problem 2015-052016-03-17 2016-03-17 Memoria Diagnosis: 0-18 03:02:37 03:02:37 l Acute on 05:00: Kai chronic Discharge 00 renal Diagnosis: failure Acute on chronic renal failure 03/14/2016 03/17/2016 [facility] Discharge Problem 2015-052016-03-17 2016-03-17 Memoria Diagnosis: 0-18 03:02:37 03:02:37 l Anemia 05:00: [place] Discharge 00 Diagnosis: Anemia 03/14/2016 03/17/2016 [facility] Discharge Problem 2015-052016-03-17 2016-03-17 Memoria Diagnosis: 0-18 03:02:37 03:02:37 l Post-opera 05:00: Raudel n tive pain Discharge 00 Diagnosis: Post-opera tive pain 03/14/2016 03/17/2016 [facility] Discharge Problem 2015-052016-03-17 2016-03-17 Memoria Diagnosis: 0- 03:02:37 03:02:37 l Acute 05:00: Kai hypokalemi Discharge 00 a Diagnosis: Acute hypokalemi a 03/14/2016 03/17/2016 [facility] Discharge Problem 2015-02-19 2015-02-19 Memoria Diagnosis: 02-16 07:51:51 07:51:51 l Hyperlipid 14:36: Raudel n emia Discharge 09 Diagnosis: Hyperlipid emia 02/16/2015 02/19/2015 [facility] Discharge Problem 2015-02-19 2015-02-19 Memoria Diagnosis: 02-16 07:51:51 07:51:51 l Hypertensi 14:36: Raudel n on Discharge 00 Diagnosis: Hypertensi on 02/16/2015 02/19/2015 [facility] Discharge Problem 2015-02-19 2015-02-19 Memoria Diagnosis: 02-16 07:51:51 07:51:51 l Angina 14:35: Kai pectoris Discharge 54 Diagnosis: Angina pectoris 5 02/19/2015 [facility] Discharge Problem 2015-02-12 2015-02-12 Memoria Diagnosis: 02-09 09:59:31 09:59:31 l Wrist 05:00: Kai sprain Discharge 00 Diagnosis: Wrist sprain 02/09/2015 02/12/2015 [facility] Discharge Problem 2015-01-26 2015-01-26 Memoria Diagnosis: 01-23 02:07:27 02:07:27 l Epileptic 05:00: Kai seizure, Discharge 00 generalize Diagnosis: d Epileptic seizure, generalize d 01/23/2015 01/26/2015 [facility] Discharge Problem 2015-01-26 2015-01-26 Memoria Diagnosis: 01-23 02:07:27 02:07:27 l Cerebral 05:00: Kai seizure Discharge 00 Diagnosis: Cerebral seizure 01/23/2015 01/26/2015 [facility] Allergies, Adverse Reactions, Alerts Allergy Allergy Status Severity Reaction(s) Onset Inactive Treating Comm ents Source Name Type Date Date Clinician No Known DA Active U 2018-05 [facility] Allergie 0-10 Henson s 00:00: [facility] 00 are [facility] Morphine Propensi Active Other (See 2016-05 Headache [facility]3] ty to Comments) 06-16 [facility] - adverse 00:[facility]: Medical reaction 00 Center s morphine morphine Active [facility] Social History Social Habit Start Date Stop Date Quantity Comments Source Sex Assigned At [facility] Cigarettes smoked 2017-04-16 2017-04-16 [facility] - current (pack per 00:00:00 00:00:00 [facility] Center day) - Reported Tobacco use and 2017-04-16 2017-04-16 Current user [facility] - exposure 00:00:00 00:00:00 [facility] Social History 2013-10-21 2013-10-21 [facility] joann 05:36:39 05:36:39 Smoking Status Start Date Stop Date Source Current every day smoker 2017-04-16 00:00:00 [facility] Medications Ordered Filled Start Stop Current Ordering [...] Inhale [address] HFA 90 4 puff by Blank - mcg/actuati 00:00: mouth via M edical on inhaler 00 inhaler 3 Cent er (three) times daily as needed for Shortness of Breath. lisinopril Yes 10mg QD Take [address] (PRINIVIL,Z 4-01 by mouth [facility] s - ESTRIL) 10 00:00: daily. Medic al MG tablet 00 [place] amLODIPine Yes 10mg QD Take [address] (NORVASC) 08-26 by mouth [facility] - 10 MG 00:00: daily. Medical tablet 00 [place] Sodium 2015-05 Yes IVPB, 150 Memori a Chloride 1-09 ml/hr, l 0.9% IV 14:00: PRN, Start Herm delisa 00 date: 04/05/16 8:00:00 [employer]MENT [employer]IST, Duration: 30, 1,000 ml EPINEPHrine 2015-05 Yes Notes: Memoria - MEDICATION l 13:22: WASTE [place] Product Size: 1 mg Product Wasted: ___ mg Solu-CORTEF 2015-05 Yes Notes: Ed bandar - (Same as: l 13:22: Solu-JOHN Kai F) Benadryl 2015-05 Yes Notes: Memoria 06-05 (Same as: l 13:22: Benadryl) Kai Sodium 2015-05 Yes IV, 0 Memoria Chloride 1-09 ml/hr, l 0.9% IV 13:21: PRN, PRN Raudel n 00 Blood Transfusio n, Start date: 04/05/16 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 Kai (Same as: Tylenol) Acetaminoph 2015-05 No Notes: Ed bandar en 325 MG / 0-18 (Same as: l Hydrocodone 11:34: Floyd Denita nn Bitartrate 00 325/5) Do 5 MG Oral not exceed Tablet 4gm/day of [Floyd acetaminop 5/325] hen. Acetaminoph 2015-05 No 1 [...] Memoria 0-18 Same as: l 04:18: Dilaudid [place] 00 Sodium 2016 No 500 mL, Memoria Chloride 0-18 500 [...] bandar 02-16 (Same As: l 20:00: Rocephin). [place] 00 Use with 100 mL NS and [...] oral 02-16 tab, PO, l tablet 12:57: [id number], 0 Denita nn 00 Refill(s) pantoprazol Yes 40 mg = 1 M emoria e 40 mg 02-16 tab, PO, l oral 12:57: Before Kai enteric 00 Breakfast, coated 0 tablet Refill(s) Acetaminoph Yes 1 tab, PO, Memoria en 325 MG / 02-16 Q4H, PRN l Hydrocodone 12:57: Pain Score [place] Bitartrate 00 1-3, 0 5 MG Oral [...] INJ (ANES) 02-11 Total l 12:55: Volume: Kai 00 1,000, Start date: 02/12/16 7:55:00 CDT, [...] milk [Xanax] (Same as: Xanax) vancomycin No 2001 mg: Me moria -15 infuse l 10:00: over 2.5 [place] 00 hours Anoro No Anoro Memoria 62.5mcg/25 [...] 03/10/16 14:50:00 CDT Dilaudid No Notes: Memoria - Same as: l 18:01: Dilaudid [place] 00 Sodium No 500 mL, Memoria Chloride -14 500 ml/hr, l 0.154 17:59: Infuse [place] MEQ/ML 00 Over: 1 Injectable hr, Route: [...] e 02-08 Tablet l 14:00: should not [place] 00 be chewed or crushed. (Same as: Protonix) Simvastatin No Notes: Ed bandar 02-08 (Same as: l 02:00: Zocor) [place] 00 Cefuroxime No 1.5 gm, Ed bandar [...] 02-08 (Same as: l sodium 01:04: K [place] chloride 00 Phosphate. 0.9% 500 ml ) 1 mMol INJ 500 mL phoshate has 1.47 mEq potassium Infuse over 4 hours potassium No Notes: Memori a phosphate + 02-08 (Same as: l sodium 01:04: K [place] chloride 00 Phosphate. 0.9% INJ ) 1 mMol 250 mL phoshate has 1.47 mEq potassium Infuse over 4 hours Magnesium No Notes: Memori a Oxide 02-08 (Same as: l 01:04: Mag-Ox Kai 00 400) Magnesium oxide 250rr=082e g elemental magnesium Dose=____m g magnesium oxide (___mg elemental magnesium) Magnesium No Notes: Memori a Sulfate 02-08 WASTE: F/P l 01:04: - Sink; E [place] - Municipal Trash Bin potassium No Notes: Memori a chloride 02-08 (Same as: l 01:04: Potassium Kai 00 [...] WASTE: F/P l 01:04: - Sink; E [place] - [facility] Trash Bin Albuterol No Notes: SEE Me moria 0.83 MG/ML 02-08 RT l Inhalant 01:04: DOCUMENTAT Her cook Solution 00 ION (Same as: Proventil) Dextrose No 25 gm, 50 Ed bandar 50% Syringe 9-14 mL, Route: l 01:04: IVP, Drug [place] 00 Form: INJ, Dosing Weight 96.023, kg, PRN, PRN Blood Glucose Results, Start date: 02/08/16 20:04:00 CDT, Duration: 30 day, Stop date: 03/09/16 20:03:00 CDT Docusate No Notes: Memoria 02-08 (Same as: l 01:04: Colace) [place] (Do Not Crush) Glucagon No 1 mg, Memoria 02-08 Route: IM, l 01:04: Drug form: Kai 00 PDR/INJ, PRN, Dosing Weight 96.023, kg, PRN Blood Glucose Results, Start date: 02/08/16 20:04:00 CDT, Duration: 30 day, Stop date: 03/09/16 20:03:00 CDT Acetaminoph No Notes: Ed bandar en 325 MG / 02-08 (Same as: l Hydrocodone 01:04: Floyd Denita nn Bitartrate 00 325/5) Do 5 MG Oral not exceed Tablet 4gm/day of acetaminop hen. Acetaminoph No Notes: Do M emoria en 02-08 not exceed l 01:04: 4 gm/day. [place] 00 (Same as: Tylenol) D5W 1/2NS + No Notes: Ed bandar KCL 20mEq/L 02-08 PREMIX IV l 1000ml 01:04: - Do Not Kai (Premix) 00 Alter 1,000 mL WASTE: F/P - Sink; E - Municipal Trash Bin Ondansetron No Notes: De bandar 02-07 (Same as: l 14:59: Zofran) [place] 00 MEDICATION WASTE Product Size: 4 mg Product Wasted: ___ mg Promethazin No 6.25 mg, Me moria e 02-07 25 mL, l 14:59: Route: [place] 00 IVPB, Drug form: SOLN, ONCE, Dosing Weight 96.023, kg, PRN Nausea & Vomiting, Start date: 02/08/16 9:59:00 CDT Flumazenil No Notes: Memor ia -13 (Same as: l 14:59: Romazicon) Naloxone No Notes: Memoria 13 Same as l 14:59: Narcan Fentanyl No Notes: Memoria 13 (Same as: l 14:59: Sublimaze) Preservat vahid [...] Route: l de 10 MG/ML 12:00: INTRADERM, [place] Injectable Dosing Solution Weight 98.636, kg, ONCALL, [...] 02-06 Route: PO, l 17:00: Drug form: Kai [...] Pharmacy to dose Acetaminoph No Notes: Do Kalli emoria en 325 MG / 01-31 not exceed l Hydrocodone 18:10: 4gm/day of Kai Bitartrate 00 acetaminop 10 MG Oral hen. Tablet (Same as: [Floyd Floyd 10/325] 325/10) Tylenol No Notes: Do Memor [...] as: l / 13:22: Duoneb) Ipratropium 00 Wayne 0.167 MG/ML Inhalant Solution Zofran No Notes: Memoria 01-31 (Same as: l 06:24: Zofran) [place] 00 MEDICATION WASTE Product Size: 4 mg Product Wasted: ___ mg Dilaudid No Notes: Memoria 01-31 Same as: l 06:23: Dilaudid [place] 00 Acetaminoph No 1 tab, PO, Memoria [...] tab, PO, l tablet 04:53: Daily, # Franklin 00 30 tab, 0 Refill(s) atorvastati Yes 40 mg = 1 M emoria n 40 mg 01-31 tab, PO, l oral tablet 04:53: Bedtime, # Franklin 00 30 tab, 0 Refill(s) Anoro Yes 1 puff, Memoria Ellipta 01-31 INHALER, l 62.5 mcg-25 04:53: Daily, # 1 Kai mcg 00 ea, 3 inhalation Refill(s) powder Alprazolam Yes 2 mg = 1 Mem oria 2 MG Oral 01-31 tab, PO, l Tablet 04:53: BID, PRN [place] 00 Anxiety, # 20 tab, 0 Refill(s) [...] 10 MG Oral hen. Tablet (Same as: [Floyd Floyd 10/325] 325/10) Amlodipine Yes 10 mg, PO, [...] / 02-16 (Same as: l Hydrocodone 04:39: Floyd Denita nn Bitartrate 00 325/5) Do 5 MG Oral not exceed Tablet 4gm/day of [Floyd acetaminop 5/325] hen. Tessalon No Notes: Memoria Perles 02-16 (Same As: l 01:00: Tessalon Perles) "Do Not Crush" Acetaminoph Yes 1 tab, PO, Memoria en 325 MG / 02-16 Q12H, PRN l Hydrocodone 00:48: Pain, # 30 [place] Bitartrate 00 tab, 0 5 MG Oral Refill(s) Tablet [Floyd 5/325] Alprazolam Yes 0.25 mg = Me moria 0.25 MG 02-16 1 tab, PO, l Oral Tablet 00:48: BID, PRN He rmann [Xanax] 00 Anxiety, Stress, # 20 tab, 0 Refill(s) metoprolol Yes 25 mg, PO, M emoria tartrate 02-16 BID, 0 l 00:48: Refill(s) NS 1,000 mL No 1,000 mL, M emoria 02-15 Rate: 75 l 23:04: ml/hr, Infuse over: 13.3 hr, Route: IV, Dosing Weight 13.636 kg, Total Volume: 1,000, Start date: 02/15/15 18:04:00, Duration: 30 day, Stop date: 03/17/15 18:03:00 Xopenex No Notes: SEE Ed bandar 02-15 RT l 23:03: DOCUMENTAT ION (Same as:Xopenex ) Non-Formul tamara Acetaminoph No Notes: Do M emoria en 325 MG / 02-15 not exceed l Hydrocodone 23:03: 4gm/day of [place] Bitartrate 00 acetaminop 10 MG Oral hen. Tablet (Same as: [Floyd Floyd 10/325] 325/10) Albuterol No Notes: Memori a 0.833 MG/ML 02-15 (Same as: l / 20:51: Duoneb) Ipratropium 00 [place] 0.167 MG/ML Inhalant Solution [DuoNeb] Aspirin No Notes: Memoria 02-15 Take with l 20:00: food. [place] 00 tramadol Yes 100 mg = 2 Mem oria hydrochlori 02-09 tab, PO, l de 50 MG 21:05: Q6H, PRN Denita nn Oral Tablet 00 pain, X 3 [Ultram] day, # 20 tab, 0 Refill(s) Tylenol No Notes: Do Memor ia 02-09 not exceed l 20:47: 4 gm/day. Kai 00 (Same as: Tylenol) Sodium No 1,000 mL, Memori a Chloride 01-23 1,000 l 0.154 19:39: ml/hr, [place] MEQ/ML 00 Infuse Injectable Over: 1 Solution hr, Route: IV, 1,000, Drug form: INJ, ONCE, Priority: STAT, Dosing Weight 104.545 kg, Start date: 01/23/15 14:39:00, Duration: 1 doses or times, Stop date: 01/23/15 14:39:00 Saline No Notes: Memoria Flush 0.9% 01-23 preservati l 19:39: ve free. [place] Vital Signs Vital Name Observation Time Observation Value Comments Source Systolic blood 2020-01-02 14:29:00 147 mm[Hg] [facility] Diastolic blood 2020-01-02 14:29:00 79 mm[Hg] [facility] Heart rate 2020-01-02 14:29:00 91 /min [facility] Respiratory rate 2020-01-02 14:29:00 18 /min [facility] Oxygen saturation in 2020-01-02 14:29:00 95 /min [facility] Arterial blood by Medical Ce nter Pulse oximetry Body weight 2020-01-02 06:36:00 85.276 kg [facility] BMI 2020-01-02 06:36:00 24.80 kg/m2 [facility] Body temperature 2020-01-02 06:34:[address] [facility] Systolic (mm Hg) 2016-04-05 18:57:00 Ed shankar Kai Diastolic (mm Hg) 2016-04-05 18:57:00 Mem orial Kai Respitory Rate 2016-04-05 18:57:00 [facility] [place] Heart Rate 2016-04-05 18:57:00 [facility] [place] Systolic (mm Hg) 2016-04-05 18:27:00 Ed rial [place] Diastolic (mm Hg) 2016-04-05 18:27:00 Mem orial Kai Respitory Rate 2016-04-05 18:27:00 Memori al Kai Heart Rate 2016-04-05 18:27:00 [facility] [place] Respitory Rate 2016-04-05 17:57:00 Memori al Kai Heart Rate 2016-04-05 17:57:00 [facility] [place] Systolic (mm Hg) 2016-04-05 17:57:00 Ed rial Kai Diastolic (mm Hg) 2016-04-05 17:57:00 Mem orial Kai Temperature Oral (F) 2016-04-05 17:35:00 97.7 F [facility] [place] Temperature Oral (F) 2016-04-05 17:27:00 97.7 F [facility] [place] Temperature Oral (F) 2016-04-05 16:22:00 98.2 F [facility] [place] Weight 2016-04-05 13:20:00 [facility] [place] BMI Calculated 2016-04-05 13:20:00 Memori al Kai Height 2016-04-05 13:20:00 185 cm [facility] [place] Respitory Rate 2016-03-14 11:00:00 Memori al [place] Systolic (mm Hg) 2016-03-14 11:00:00 Ed rial Kai Diastolic (mm Hg) 2016-03-14 11:00:00 Mem orial Kai Systolic (mm Hg) 2016-03-14 10:00:00 Ed rial [place] Diastolic (mm Hg) 2016-03-14 10:00:00 Mem orial [place] Respitory Rate 2016-03-14 10:00:00 Memori al [place] Temperature Oral (F) 2016-03-14 09:00:00 98.8 F [facility] [place] Respitory Rate 2016-03-14 09:00:00 Memori al Kai Systolic (mm Hg) 2016-03-14 09:00:00 Ed rial Kai Diastolic (mm Hg) 2016-03-14 09:00:00 Mem orial [place] Temperature Oral (F) 2016-03-14 05:00:00 98.7 F [facility] [place] Heart Rate 2016-03-14 03:48:00 [facility] [place] BMI Calculated 2016-03-13 23:42:00 Memori al [place] Weight 2016-03-13 23:42:00 [facility] [place] Temperature Oral (F) 2016-03-13 23:42:00 98.6 F [facility] [place] Height 2016-03-13 23:42:00 185.42 cm [facility] [place] Heart Rate 2016-03-13 23:42:00 [facility] [place] Respitory Rate 2016-02-18 19:19:00 Memori al Kai Systolic (mm Hg) 2016-02-18 19:19:00 Ed rial Kai Diastolic (mm Hg) 2016-02-18 19:19:00 Mem orial [place] Heart Rate 2016-02-18 19:19:00 [facility] [place] Temperature Oral (F) 2016-02-18 19:19:00 98.8 F [facility] [place] Temperature Oral (F) 2016-02-18 15:28:00 98.3 F [facility] [place] Heart Rate 2016-02-18 15:28:00 [facility] [place] Systolic (mm Hg) 2016-02-18 15:28:00 Ed rial Kai Diastolic (mm Hg) 2016-02-18 15:28:00 Mem orial Kai Respitory Rate 2016-02-18 15:28:00 Memori al [place] Temperature Oral (F) 2016-02-18 12:40:00 98.2 F [facility] [place] Heart Rate 2016-02-18 12:40:00 [facility] [place] Systolic (mm Hg) 2016-02-18 12:40:00 Ed rial Kai Diastolic (mm Hg) 2016-02-18 12:40:00 Mem orial [place] Respitory Rate 2016-02-18 12:40:00 Memori al [place] Weight 2016-02-08 11:10:00 [facility] [place] BMI Calculated 2016-02-08 10:24:00 Memori al Kai Weight 2016-02-08 10:24:00 [facility] [place] Height 2016-02-08 10:24:00 185.42 cm [facility] [place] Weight 2016-02-01 04:41:00 [facility] [place] BMI Calculated 2016-02-01 04:41:00 Memori al [place] Height 2016-02-01 04:41:00 185.42 cm [facility] [place] Height 2016-01-31 19:21:00 185.42 cm [facility] BMI Calculated 2016-01-31 19:21:00 Memori al Kai Respitory Rate 2015-02-16 18:18:00 Memori al [place] Temperature Oral (F) 2015-02-16 17:50:00 98.0 F [facility] [place] Respitory Rate 2015-02-16 17:50:00 Memori al Kai Heart Rate 2015-02-16 17:50:00 [facility] [place] Systolic (mm Hg) 2015-02-16 17:50:00 Ed rial Kai Diastolic (mm Hg) 2015-02-16 17:50:00 Mem orial Kai Temperature Oral (F) 2015-02-16 12:35:00 98.2 F [facility] [place] Heart Rate 2015-02-16 12:35:00 [facility] [place] Systolic (mm Hg) 2015-02-16 12:35:00 Ed rial Kai Diastolic (mm Hg) 2015-02-16 12:35:00 Mem orial [place] Respitory Rate 2015-02-16 12:35:00 Memori al Kai Temperature Oral (F) 2015-02-16 09:00:00 97.5 F [facility] [place] Systolic (mm Hg) 2015-02-16 09:00:00 Ed rial Kai Diastolic (mm Hg) 2015-02-16 09:00:00 Mem orial Kai Heart Rate 2015-02-16 09:00:00 [facility] [place] Height 2015-02-16 00:50:00 185.42 cm [facility] BMI Calculated 2015-02-16 00:50:00 Memori al Kai Weight 2015-02-16 00:50:00 [facility] [place] Weight 2015-02-15 17:48:00 [facility] [place] BMI Calculated 2015-02-15 17:48:00 Memori al Kai Height 2015-02-15 17:48:00 185.42 cm [facility] [place] Temperature Oral (F) 2015-02-09 21:12:00 98.2 F [facility] [place] Heart Rate 2015-02-09 21:12:00 [facility] [place] Respitory Rate 2015-02-09 21:12:00 Memori al [place] Systolic (mm Hg) 2015-02-09 21:12:00 Ed rial [place] Diastolic (mm Hg) 2015-02-09 21:12:00 Mem orial Kai BMI Calculated 2015-02-09 20:27:00 Memori al Kai Weight 2015-02-09 20:27:00 [facility] [place] Height 2015-02-09 20:27:00 185.42 cm [facility] [place] Systolic (mm Hg) 2015-02-09 20:27:00 Ed rial [place] Diastolic (mm Hg) 2015-02-09 20:27:00 Mem orial [place] Heart Rate 2015-02-09 20:27:00 [facility] [place] Respitory Rate 2015-02-09 20:27:00 Memori al [place] Systolic (mm Hg) 2015-01-23 23:00:00 Ed rial Kai Diastolic (mm Hg) 2015-01-23 23:00:00 Mem orial [place] Systolic (mm Hg) 2015-01-23 22:00:00 Ed rial Kai Diastolic (mm Hg) 2015-01-23 22:00:00 Mem orial Kai Systolic (mm Hg) 2015-01-23 21:00:00 Ed rial Kai Diastolic (mm Hg) 2015-01-23 21:00:00 Mem orial Kai Respitory Rate 2015-01-23 19:15:00 Memori al [place] Weight 2015-01-23 18:26:00 [facility] Kai Height 2015-01-23 18:26:00 185.42 cm [facility] Kai BMI Calculated 2015-01-23 18:26:00 Memori al Kai Respitory Rate 2015-01-23 18:26:00 Memori al [place] Heart Rate 2015-01-23 18:26:00 [facility] Kai Temperature Oral (F) 2015-01-23 18:26:00 98.5 F [facility] Kai Procedures Procedure Date / Time Performing Clinician Source Performed CT UPPER EXTREMITY 2020-01-02 14:15:[address] [facility] - WITHOUT IV CONTRAST LEFT [facility] XR SHOULDER LEFT COMPLETE 2020-01-02 09:56:00 Rob Hermosillo [facility] - [facility] 2 VIEWS [facility] PT/APTT 2020-01-02 08:49:[address] [facility] - [facility] SARS-COV2/RT-PCR ([facility] & 2020-01-02 08:22:[address] [facility] - REF LABS) Medical [place] CBC W/PLT COUNT & AUTO 2020-01-02 08:18:[address] [facility] COMPREHENSIVE METABOLIC 2020-01-02 08:18:00 Janette, Adeilana I [facility] XR SHOULDER LEFT COMPLETE 2020-01-02 07:18:00 [facility] PROCEDURAL SEDATION 2020-01-02 07:10:11 Rio Freitas [facility] Amputation of [facility] toe<sup>1</sup> Blood transfusion [facility] Plan of Care Planned Activity Planned Date Details Comments Source Future Scheduled 2020-01-[address] [facility] - Test 00:00:00 (#1) [code = [facility] INFLUENZA VACCINE (#1)] Future Scheduled 2017-05-[address] [facility] Test 00:00:00 WELLNESS (YEAR [facility] or [facility] FIRST YEAR if no IPPE) [code = MEDICARE ANNUAL WELLNESS (YEAR 2 or FIRST YEAR if no IPPE)] Future Scheduled 1999-12-[address] [facility] - Test 00:00:00 (procedure) [code = [facility] 02343662] Future Scheduled [address] [facility] - Test 00:00:00 malignant neoplasm Medical C enter of colon (procedure) [code = 977355797] Encounters Start End Encounter Admission Attending Care Care Encounter Source Date/Time Date/Time Type Type Clinicians Facility Department ID 2016-04-05 2016-04-05 Outpatient SAVI Pierce [facility] [id number] 08:00:00 23:59:00 Chuy 08 Jeff 2016-03-13 2016-03-14 Outpatient SAVI Diaz [facility] [id number] 18:41:00 10:51:00 Blanche Ruiz 07 2016-01-31 2016-02-18 Outpatient SAVI Pierce [facility] [id number] 13:47:00 15:15:00 Chuy 06 Jeff 2015-02-15 2015-02-16 Outpatient SAVI Torres [facility] [id number] 12:38:00 16:20:00 Juan Mckeon 2015-02-09 2015-02-09 Outpatient Az Warner [facility] [id number] 15:20:00 16:13:00 Sundar 04 2015-01-23 2015-01-23 Outpatient SAVI Fry [facility] [id number] 13:23:00 18:13:00 Tim Cope 03 2013-10-31 2013-11-29 Outpatient Rosibel [facility] [id number] 08:00:00 23:59:00 Nabeel Cool 00 Results Test Description Test Time Test Comments Results Result Sour e Comments CT, EXTREMITY, 2020-01-02 FINAL REPORT UPPER, WITHOUT 15:45:00 PATIENT ID: CONTRAST, LEFT [id number] CT of the left shoulder without contrast [...] Bustilloort Verified Date/Time: 01/02/2020 15:45:14 Reading Location: [facility] Radiology Reading Room upper 2020-01-02 Interface, External [facility] extremity without 15:45:00 Ris In - 01/02/2020 - Medical contrast left 3:47 PM [facility] er REPORT CT of the left shoulder [...] fragments, from unclear donor sites. Signed: Delisa Bustilloeport Verified Date/Time: 01/02/2020 15:45:14 Reading Location: [facility] Radiology Reading Room -CoV2/RT-PCR (Asymptomatic ONLY) 2020-01-02 13:11:00 Test Item Value Reference Range Interpretation Comme nts SARS-COV2/RT-PCR (test code = Negative Not Detected, 41029-2) Negative, See external report for linked test SARS-COV-2 PERFORMING LAB [facility] CARLOS MANUEL (test code = 55947-9) DELLA (test code = DELLA) Negative result [...] of the Act. Fact Sheet for Healthcare Providers:https://www.[employer]/sites/default/files/produ ct/documents/Fact_Sheet_HC_Pr burpeku_Gebn_LBIF-GqC-3.pdf Fact Sheet for Healthcare Patients:https://www.[employer] om/sites/default/files/produc t/documents/Fact_Sheet_[facility] nq_Nlnr_GNTJ-NvU-5.pdf Performing Laboratory:[facility] [place] [address] [facility])2020-01-02 13:11:00 Test Item Value Reference Range Interpretation Comments SARS-COV2/RT-PCR (test Negative Not Detected, Negative, code = 2133248) See external report for linked test SARS-COV-2 PERFORMING LAB [facility] CARLOS MANUEL (test code = 8469003) Negative result for this test determines that [...] 564(g) of the Act.Fact Sheet for Healthcare Providers:https://www.[employer]/sites/default/files/product/documents/Fact_Shee t_FG_Pgpdkyqrn_Derg_EBUY-SpC-5.pdfFact Sheet for Healthcare Patients:https://www.[employer]/sites/default/files/product/ documents/Ccly_Anfbm_Hgpkmlqz_Ozmh_DINY-AgM-7.pdfPerforming Laboratory:[facility], [place] [address]OQQ, SHOULDER, COMPLETE (MIN 2 VIEWS), [id number] 10:34:00Reason for exam:->ARM INJURYShould this be performed at the bedside?->YesFINAL REPORT RAD, SHOULDER, COMPLETE (MIN 2 VIEWS), LEFT INDICATION: ARM INJURY COMPARISON: 2 hours prior TECHNIQUE: Single frontal view of the left shoulder. IMPRESSION: Redemonstration of chronic changes in the anteriorly displaced humeral head. Glenoid rim appears preserved.Acromioclavicular joint remains intact. Signed: JR Moreira Robert MDReport Verified Date/Time: 01/02/2020 10:34:05 Reading Location: [facility] Radiology Reading Room XR shoulder complete 2 views min [id number] 10:34:00Interface, External Ris In - 01/02/2020 10:36 AM CDTFINAL REPORT RAD, SHOULDER, COMPLETE (MIN 2 VIEWS), LEFT INDICATION: ARM INJURY COMPARISON: 2 hours prior TECHNIQUE: Single frontal view of the left shoulder. IMPRESSION: Redemonstration of chronic changes in the anteriorly displaced humeral head. Glenoid rim appears preserved. Acromioclavicular joint remains intact. Signed: Teressa hernandez JR, Robert MDReport Verified Date/Time: 01/02/2020 10:34:05 Reading Location: [facility] Radiology Reading Room [facility] PT/[id number] 09:03:00 Test Item Value Reference Interpretation Comments Range Protime (test code = 13.4 See_Comment [Autom ated 5902-2) message] The system which generated this result transmitted reference range : 11.9 - 14.2 seconds. The reference range was not used to interpret this result as normal/abnormal . INR (test code = 1.1 See_Comment [Automated 6301-6) message] The system which generated this result transmitted reference range : <=5.9. The reference range was not used to interpret this result as normal/abnormal . PTT (test code = 30.8 See_Comment [Automated 70662-3) message] The system which generated this result [...] valves. Lab Interpretation Normal (test code = 14781-7) [id number] 09:03:00 Test Item Value Reference Range Interpretation [...] = 4.2 g/dL 3.5-5 Specime n slightly 55589-5) hemolyzed Alkaline Phosphatase 78 U/L 40-150 (test code = 6768-6) Total Bilirubin (test 0.4 mg/dL 0.2-1.2 Specim en slightly code = 1975-2) hemolyzed Sodium (test code = 134 meq/L 136-145 L 2951-2) Potassium (test code 3.5 meq/L 3.5-5.1 Specime n slightly = 0553-3) hemolyzed Chloride (test code = 100 meq/L 98-107 5-0) CO2 (test code = 21 meq/L 22-29 L 2027-) BUN (test code = 10 mg/dL 7-21 3094-0) Creatinine (test code 0.83 mg/dL 0.57-1.25 Specim en slightly = 2160-0) hemolyzed Glucose (test code = 74 mg/dL 70-105 2345-7) Calcium (test code = 9.3 mg/dL 8.4-10.2 36111-5) AST (test code = 25 U/L 5-34 Specimen sl ightly 1920-8) hemolyzed ALT (test code = 16 U/L 6-55 Specimen sl ightly 1742-6) hemolyzed EGFR (test code = 96 mL/min/1.73 [place] [address]-7) NOT ACCURATE CREATININE CLEARANCE IN PREDICTING GLOMERULAR FILTRATION RATE . ESTIMATED GFR I S NOT APPLICABLE FOR DIALYSIS PATIEN TS. DELLA (test code = DELLA) Senior Quality Assurance Engineer ID - EDASI Lab Interpretation Abnormal (test code = 90016-6) [facility] Hospital[facility] METABOLIC [id number] 08:46:00 Test Item Value Reference Range Interpretation [...] S NOT APPLICABLE FOR DIALYSIS PATIEN TS. Senior Quality Assurance Engineer ID - EDASICBC with platelet count + automated [id number] 08:30:00 Test Item Value Reference Range Interpretation Comments WBC (test code = 6690-2) 7.5 See_Comment [A utomated message] The system [employer] generated this result transmitted ref erence range: 3.5 - 10 .5 K/L. The refe rence range was not u sed to interpret this result as normal/abnor mal. RBC (test code = 789-8) 4.74 See_Comment [Au tomated message] The system [employer] generated this result transmitted ref erence range: 4.63 - 6 .08 M/L. The refe rence range was not u sed to interpret this result as normal/abnor mal. MCHC (test code = 786-4) 34.0 See_Comment [A utomated message] The system [employer] generated this result transmitted ref erence range: [...] See_Comment [Aut omated message] 777-3) The system [employer] generated this result transmitted ref erence range: 150 - 45 0 K/CU MM. The referen ce range was not u sed to interpret this result as normal/abnor mal. MPV (test code = 8.8 fL 9.4-12.4 L 36146-5) nRBC (test code = 413) 0 See_Comment [Aut omated message] The system [employer] generated this result transmitted ref erence range: [...] H [Aut omated message] 670) The system [employer] generated this result transmitted ref erence range: 1.78 - 5 .38 K/L. The refe rence range was not u sed to interpret this result as normal/abnor mal. # Lymphs (test code = 1.32 See_Comment [Auto mated message] 414) The system [employer] generated this result transmitted ref erence range: 1.32 - 3 .57 K/L. The refe rence range was not u sed to interpret this result as normal/abnor mal. # Monos (test code = 0.41 See_Comment [Autom ated message] 415) The system [employer] generated this result transmitted ref erence range: 0.30 - 0 .82 K/L. The refe rence range was not u sed to interpret this result as normal/abnor mal. # Eos (test code = 416) 0.19 See_Comment [Au tomated message] The system [employer] generated this result transmitted ref erence range: 0.04 - 0 .54 K/L. The refe rence range was not u sed to interpret this result as normal/abnor mal. # Baso (test code = 417) 0.06 See_Comment [A utomated message] The system [employer] generated this result transmitted ref erence range: 0.01 - 0 .08 K/L. The refe rence range was not u sed to interpret this result as normal/abnor mal. Immature 1 % 0-1 Granulocytes-Relative (test code = 2801) Lab Interpretation (test Abnormal code = 38398-8) [facility] W/PLT COUNT & AUTO [id number] 08:30:00 Test Item Value Reference Range Interpretation [...] 2801) RAD, SHOULDER, COMPLETE (MIN 2 VIEWS), [id number] 07:45:00Reason for exam:- >ARM INJURYFINAL REPORT RAD, [...] MDReport Verified Date/Time: 01/02/2020 07:45:57 Reading Location: [facility] Radiology Reading Room Electronic ally signed [...] cannula Sedation: Propofol and ketamine Intra-procedure monitoring: quality assurance monitor final, blood pressure monitoring, continuous capnometry and continuous pulse oximetry Intra-procedure events: none Sedation end time: 01/02/2020 10:05 AMPost Sedation Evaluation: Respiration: airway patentThe following have been reviewed and found to be within acceptable parameters: RR, HR, BP and pulse ox Pain Scale: 5/10 Nausea/Vomiting: noHydration status: wnlTemperature within expected parameters :Temperature within defined limits @[facility]EDMULTIPLEVIT[facility]@ [facility] HospitalBLOOD [id number] 02:00:00 Test Item Value Reference Range Interpretation Comments CULTURE (BEAKER) (test No growth in 5 days code = 1095) BLOOD [id number] 20:01:00 Test Item Value Reference Range Interpretation Comments CULTURE (BEAKER) (test No growth in 5 days code = 1095) EEG AWAKE AND [id number] 14:49:00Reason for exam:->seizuresDate(s) of EE10/14/18DATE OF REPORT: 10/14/18ACC: [id number] Number: [id number] time: 13:36Stop time: 13:57ICD-10: R56.9 Unspecified ConvulsionsCPT Code: 72249 EEG: awake and drowsy <40 min HISTORY: [...] Zabala MDNeurophysiology Fellow Anjali Floyd MDNeurophysiology/Epilepsy Attending [facility] METABOLIC [id number] 07:41:00 Test Item Value Reference Range Interpretation [...] PATIEN TS. CBC W/PLT COUNT & AUTO [id number] 05:30:00 Test Item Value Reference Range Interpretation [...] (test code = 2801) VITAMIN B12 AND [id number] 19:46:00 Test Item Value Reference Range Interpretation Comments VITAMIN B12 (BEAKER) (test code = 683 pg/mL 213-816 774) FOLATE (BEAKER) (test code = 362) > ng/mL >=7.0 [id number] 17:59:00 Test Item Value Reference Range Interpretation Comments PHOSPHORUS (BEAKER) (test code = 4.0 mg/dL 2.3-4.7 604) [id number] 17:59:00 Test Item Value Reference Range Interpretation Comments MAGNESIUM (BEAKER) (test code = 2.5 mg/dL 1.6-2.6 627) CT, BRAIN, WITHOUT [id number] 16:58:00FINAL REPORT CT head without contrast. Reason [...] Bustilloort Verified Date/Time: 10/12/2018 16:58:56 Reading Location: [address] Neuro Reading Room ALYSIS W/ [id number] 16:25:00 Test Item Value Reference Range Interpretation [...] 516) SOURCE(BEAKER) (test code = Urine, Voided 1954) BLOOD [id number] 10:00:00 Test Item Value Reference Range Interpretation Comments CULTURE (BEAKER) (test No growth in 5 days code = 1095) STOOL CULTURE + SHIGA [id number] 09:59:00 Test Item Value Reference Range Interpretation Comments CULTURE (BEAKER) No Salmonella, Shigella (test code = 1095) or Campylobacter isolated STOOL PATH [id number] 09:01:00 Test Item Value Reference Range Interpretation Comments PATHOGEN EXAM CHARGED (BEAKER) (test Done code = 9376) BASIC METABOLIC [id number] 06:59:00 Test Item Value Reference Range Interpretation [...] APPLICABLE FOR DIALYSIS PATIEN TS. SHIGA TOXIN [id number] 15:48:00 Test Item Value Reference Range Interpretation Comments SHIGA TOXIN 1 (BEAKER) (test Not detected Not detected code = 2177) SHIGA TOXIN 2 (BEAKER) (test Not detected Not detected code = 2179) CLOSTRIDIUM DIFFICILE TOXIN [id number] 15:13:00 Test Item Value Reference Range Interpretation [...] a positive result is not recommended.BLOOD GAS, [id number] 11:03:00 Test Item Value Reference Range Interpretation [...] code = 1819) 21.0 % BASIC METABOLIC [id number] 05:14:00 Test Item Value Reference Range Interpretation [...] NOT APPLICABLE FOR DIALYSIS PATIEN TS. PTH, [id number] 05:03:00 Test Item Value Reference Range Interpretation Comments PARATHYROID HORMONE INTACT 41.8 pg/mL 8.5-72.5 (BEAKER) (test code = 577) BASIC METABOLIC [id number] 07:10:00 Test Item Value Reference Range Interpretation [...] APPLICABLE FOR DIALYSIS PATIEN TS. SODIUM, RANDOM [id number] 06:58:00 Test Item Value Reference Range Interpretation Comments SODIUM URINE (BEAKER) (test code = 65 meq/L 243) Reference Range: No NormalsPROTHROMBIN TIME/[id number] 06:47:00 Test Item Value Reference Range Interpretation Comments PROTIME (BEAKER) (test code = 14.5 seconds 11.7-14.7 759) INR (BEAKER) (test code = 370) 1.1 <=5.9 RECOMMENDED COUMADIN/WARFARIN INR THERAPY RANGESSTANDARD DOSE: 2.0 - 3.0 Includes: PROPHYLAXIS forvenous thrombosis, systemic embolization; TREATMENT for venous thrombosis and/or pulmonary embolus.HIGH RISK: Target INR is 2.5-3.5 for patients with mechanical heart valves.RAPID DRUG SCREEN, [id number] 15:43:00 Test Item Value Reference Range Interpretation [...] situations. Chain of custody not maintained. Some exqh-ilc-wylhznh medications, as well as adulterants, may cause inaccurate results. Clinical correlation should be applied. A more comprehensive drug screen or confirmation of a detected drug may be performed upon request. URINE [id number] 14:33:00 Test Item Value Reference Range Interpretation Comments CULTURE (BEAKER) (test code = 1095) No growth BASIC METABOLIC [id number] 08:09:00 Test Item Value Reference Range Interpretation [...] PATIEN TS. CBC W/PLT COUNT & AUTO [id number] 06:38:00 Test Item Value Reference Range Interpretation [...] (BEAKER) (test code = 2801) U/S, RENAL, [id number] 22:34:00Reason for exam:->acute kidney injury FINAL REPORT [...] Liana Jack Verified Date/Time: 04/17/2017 22:34:25 Reading Location:[address] Consult Reading Room MR, BRAIN, WITHOUT [id number] 19:18:00Reason for exam:->Stroke evaluationFINAL REPORT MRI Brain [...] Charlene ified Date/Time: 04/17/2017 19:18:34 Reading Location: [facility] Radiology Reading Room EEG MONITORING WITH VIDEO RECORDING EACH 24 [id number] 18:01:00DATE OF TEST: 04/17/2017 DATE OF REPORT 04/17/2017 ACC: [id number] EE Start time: 16:42 Stop time: 18:44 ICD-10: R56.9 CPT Code: 62822 HISTORY: 51 y/o woman with history of [...] Gina Davis MD Neurophysiology Attending ALYSIS W/ [id number] 11:57:00 Test Item Value Reference Range Interpretation [...] 1583) SOURCE(BEAKER) (test code = Urine, Cooper 3869) EOSINOPHIL SMEAR, [id number] 11:56:00 Test Item Value Reference Range Interpretation Comments EOSINOPHIL SMEAR, URINE (BEAKER) No EOS seen No EOS seen (test code = 1851) CREATININE, RANDOM [id number] 11:24:00 Test Item Value Reference Range Interpretation Comments CREATININE URINE (BEAKER) (test 69.7 mg/dL code = 375) Reference Range: No NormalsSODIUM, RANDOM [id number] 11:24:00 Test Item Value Reference Range Interpretation Comments SODIUM URINE (BEAKER) (test code = 58 meq/L 243) Reference Range: No NormalsUREA NITROGEN, RANDOM [id number] 11:24:00 Test Item Value Reference Range Interpretation Comments UREA NITROGEN URINE (BEAKER) (test 172 mg/dL code = 538) Reference Range: No NormalsCREATINE KINASE (CK)2017-04-17 11:06:00 Test Item Value Reference Range Interpretation Comments CREATINE KINASE TOTAL (BEAKER) (test 136 U/L 29-200 code = 380) BASIC METABOLIC [id number] 04:53:00 Test Item Value Reference Range Interpretation [...] PATIEN TS. CBC W/PLT COUNT & AUTO [id number] 04:19:00 Test Item Value Reference Range Interpretation [...] EEG MONITORING WITH VIDEO RECORDING EACH 24 [id number] 17:57:00DATE OF TEST: 04/16/2017DATE OF REPORT 04/16/2017 ACC: [id number]: Start time: 08:42 Stop time: 16:42ICD-10: R56.9CPT Code: 81177PODRHDC: 51 y/o woman with history of epilepsy [...] report.Vicky Hassan MDEpilepsy Attending EEG AWAKE/ASLEEP AND [id number] 13:27:00Reason for exam:->status epilepticusDATE OF TEST: 04/16/2017DATE OF REPORT 04/16/2017 ACC: [id number] EEStart time: 08:21 Stop time: 08:42ICD-10: R56.9CPT Code: 50968OCPUXHF: 51 y/o woman with history of epilepsy [...] this report.Vicky Hassan MDEpilepsy Attending HEPATIC FUNCTION [id number] 12:59:00 Test Item Value Reference Range Interpretation [...] 347) hemolyzed RAD, CHEST, 1 VIEW, NON [id number] 09:16:00Reason for exam:- >intubatedShould this be performed [...] Doeort Verified Date/Time: 04/16/2017 09:16:32 Reading Location: [facility] Radiology Reading Room VITAMIN [id number] 07:31:00 Test Item Value Reference Range Interpretation Comments VITAMIN B12 (BEAKER) (test code = 450 pg/mL 213-276 834) FOLATE, [id number] 07:31:00 Test Item Value Reference Range Interpretation Comments FOLATE (BEAKER) (test code = 362) 8.0 ng/mL >=7.0 URINALYSIS W/ [id number] 07:09:00 Test Item Value Reference Range Interpretation [...] = 514) SOURCE(BEAKER) (test code = 2795) [id number] 05:59:00 Test Item Value Reference Range Interpretation Comments MAGNESIUM (BEAKER) 3.0 mg/dL 1.6-2.6 H Specimen moderately (test code = 627) hemolyzed [id number] 05:59:00 Test Item Value Reference Range Interpretation Comments PHOSPHORUS (BEAKER) 3.0 mg/dL 2.3-4.7 Specimen moderately (test code = 604) hemolyzed BASIC METABOLIC [id number] 05:59:00 Test Item Value Reference Range Interpretation [...] NOT APPLICABLE FOR DIALYSIS PATIEN TS. PROTHROMBIN TIME/[id number] 05:33:00 Test Item Value Reference Range Interpretation Comments PROTIME (BEAKER) (test code = 15.7 seconds 11.7-14.7 H 759) INR (BEAKER) (test code = 370) 1.3 <=5.9 RECOMMENDED COUMADIN/WARFARIN INR THERAPY RANGESSTANDARD DOSE: 2.0 - 3.0 Includes: PROPHYLAXIS forvenous thrombosis, systemic embolization; TREATMENT for venous thrombosis and/or pulmonary embolus.HIGH RISK: Target INR is 2.5-3.5 for patients with mechanical heart valves.BLOOD GAS, [id number] 05:31:00 Test Item Value Reference Range Interpretation [...] 60.0 % CBC W/PLT COUNT & AUTO [id number] 05:08:00 Test Item Value Reference Range Interpretation [...] (BEAKER) (test code = 2801) BLOOD BANK [id number] 17:22:00Product available (04/04/16 11:22 AM) [facility] [id number] 17:20:00Negative (04/04/16 11:20 AM) [facility] [id number] 07:08:001[facility] [id number] 07:08:003[facility] [id number] 07:08:00 Negative (03/14/16 2:08 AM)[facility] [id number] 07:08:005.0 [facility] [id number] 07:08:001.009[facility] [id number] 07:08:00Clear (03/14/16 2:08 AM)[facility] STOOL 2016-03-14 07:08:00Yellow *NA*(03/14/16 2:08 AM)[facility] STOOL 2016-03-14 07:08:00Negative (03/14/16 2:08 AM)[facility] STOOL 2016-03-14 07:08:00Negative (03/14/16 2:08 AM)[facility] STOOL 2016-03-14 07:08:00Negative *NA*(03/14/16 2:08 AM)[facility]annCHEM PANEL 2016-03-14 05:40:000.8[facility]BL[facility] B[facility] [id number] 02:07:00 Negative (03/13/16 9:07 PM)[facility]annCHEM [id number] 02:07:0043 [facility]annCHE[facility] [id number] 02:07:0021[facility]annCHEM PANEL 2016-03-14 02:07:001.79[facility]annCHEM [id number] 02:07:0095[facility]annCHEM EFMFW3054-07-69 02:07:000.3[facility]annCHEM [id number] 02:07:0039[facility]annCHEM [id number] 02:07:0059[facility]annCHEM [id number] 02:07:46943Ldjrtjoz HermannCHEM JGRTF4859-84-53 02:07:007.8 [facility]annCHE[facility] [id number] 02:07:002.5[facility]annCHEM PANEL 2016-03-14 02:07:18345Meddnsyj HermannCHEM [id number] 02:07:28824Admkctkv HermannCHEM SZUBF0679-34-53 02:07:0021[facility]annCHEM [id number] 02:07:0010.1[facility]annCHEM [id number] 02:07:003.3[facility]annCHEM [id number] 02:07:000.5[facility]annCHEM [id number] 02:07:005.3 [facility]annCHEM HYWRI1404-01-08 02:07:0012[facility]annCHEM PANEL 2016-03-14 02:07:0015.3[facility] BlayawyNRQWUCWOGG6183-29-46 02:07:007.4[facility] YjwekkhFDUHQWLTTQ7599-39-92 02:07:007.3[facility] OnsvtpdKCVXWXERQR3659-22-92 02:07:0088.5[facility] HzgfemsOZMNNHIVAD4554-51-99 02:07:003.00[facility] Kai ZVDALQWRTZ3969-70-19 02:07:0026.5[facility] TcemtylNJVAXIKUNU1504-68-06 02:07:00 8.8Memorial NskxgtqAXVBXYJKZR6555-50-19 02:07:0033.1[facility]annHEMATOLOGY 2016-03-14 02:07:00 Test Item Value Reference Range Interpretation Comments MCH (test code = MCH) 29.3 pg 27.0-31.0 [facility] JawdhhbYMCSAMVLIM7441-20-14 02:07:08635Qranpcmv HermannHEMATOLOGY 2016-03-14 02:07:0015.5[facility] RxuxwozQURMGYRUOY6203-67-83 02:07:000.1[facility] KljrlknVZCTFMEESZ9860-15-38 02:07:0014.3[facility] GhfdaeqFQTGUWWNWV6048-57-37 02:07:001.9[facility] WqabeelQKJAZKQJCM6625-50-60 02:07:0077.1[facility] Kai NQGJOTAXNO6523-62-74 02:07:005.3[facility] BttcmniSXSMQHQVVI7824-46-35 02:07:001.4 [facility] UttemjpELNNYACUFH0350-04-60 02:07:005.6[facility]annHEMATOLOGY 2016-03-14 02:07:001.0[facility] KptnkepUEOQBZLSDL5902-78-88 02:07:000.4[facility] LsaregbCJJEIOETQT6222-68-04 02:07:000.1[facility] HermannANEMIA AFBWC0614-62-54 09:04:36885Pkopeoum HermannANEMIA [id number] 09:04:21407Fngnovvw Kai ANEMIA WHYDA6538-67-07 09:04:0022Mem[facility] HermannANEMIA YCPMH9541-79-75 09:04:00 11[facility] HermannCHEM GBWTZ5446-11-59 15:50:0057[facility] HermannCHEM PANEL 2016-02-15 15:50:0014.7[facility] HermannCHEM DYWLA8512-43-54 15:50:008.7[facility] HermannCHEM QDKZH7455-36-09 15:50:0024[facility] HermannCHEM AXFME5289-25-09 15:50:0099[facility] HermannCHEM TDPYJ2912-16-23 15:50:003.7[facility] HermannCHEM XQMCF2613-59-04 15:50:0016[facility] HermannCHEM FYEHB7036-21-68 15:50:06022 [facility]annCHEM EZYEY2917-69-00 15:50:35850Rztvsnmb HermannCHEM PANEL 2016-02-15 15:50:001.42[facility] HermannCHEM OOKFU0321-04-33 09:45:0051[facility] HermannCHEM KGQFD1360-75-36 09:45:000.8[facility]annCHEM DYBWH5698-68-61 09:45:0025[facility] HermannCHEM WLGMU5373-51-50 09:45:0015Mem[facility] HermannCHEM GOJEY0430-61-05 09:45:0062[facility]annCHEM ZRNBJ0380-09-69 09:45:004.8 [facility]annCHEM [id number] 09:45:000.5[facility]annCHEM PANEL 2016-02-14 09:45:009.0[facility]annCHEM [id number] 09:45:59037Grmnfdrv HermannCHEM [id number] 09:45:0024[facility]annCHEM [id number] 09:45:36965Tgcshely HermannCHEM [id number] 09:45:0017[facility]annCHEM WMUDR3698-55-65 09:45:004.1[facility]annCHEM IKBOC1832-34-08 09:45:0014.1 [facility]CHE[facility] VDDPR3409-80-70 09:45:002.3[facility]annCHEM PANEL 2016-02-14 09:45:007.1[facility]annCHEM BIEUO3045-79-90 09:45:001.55[facility]annCHEM TLOLV1331-73-06 09:45:67882Tprzmfln HermannCHEM HQXGW8488-18-60 09:45:0011[facility] ZredqvtSVIHJGTRGH8113-00-08 09:45:007.7[facility] DQBECNBEGF3041-16-35 09:45:0025.4[facility] DowkhekFIQBKVIWFF1776-14-72 09:45:00 Test Item Value Reference Range Interpretation Comments MCH (test code = MCH) 32.7 pg 27.0-31.0 [facility] AvhdlmaPYLIZICJVO5314-03-70 09:45:0096.6[facility]annHEMATOLOGY 2016-02-14 09:45:86333Paewfaje HhkrcpeYILDCQSSBT5168-45-10 09:45:0014.7[facility] VisndtgZBYXVRRTAV8206-15-84 09:45:0033.8[facility] WfhdyjhSQEKEEDAFH5238-27-43 09:45:008.4[facility] ZbzvnbnITYBHJKOSL9324-24-43 09:45:008.6[facility] JURIAOCJFL8718-15-73 09:45:002.63[facility] PmdzgrlBMAUFNYXIS2572-70-94 09:45:00 1.5[facility] VbbltbaDEJWPTSUJM2974-65-51 09:45:000.2[facility]annHEMATOLOGY 2016-02-14 09:45:000.8[facility] BiudfrzVYPBKRCYZR5112-51-28 09:45:000.1[facility] JrmnewsICJGRFZQMV6540-13-57 09:45:009.9[facility] ZvskmobBGQPLNCVEX0847-64-49 09:45:0017.2[facility] AfsmgugFJPUYEQWAJ6640-56-65 09:45:0069.8[facility] HEWRPAXFDF3530-29-78 09:45:002.2[facility] EydkzmpUYRVVJUJSD9753-86-39 09:45:005.9 [facility] TchrghzBLLHTKPLWO1438-20-15 09:45:000.9[facility] HermannTOXICOLOGY 2016-02-14 09:45:0014.8[facility]annCHEM TWADC0259-33-12 09:54:006.3[facility]annCHE[facility] YJIRT4384-75-81 09:54:000.7[facility]annCHEM VGAWL2452-75-96 09:54:0012[facility]annCHE[facility] GEDWO3484-22-92 09:54:003.8[facility]annCHEM VOXXC9842-37-60 09:54:0012[facility]annCHEM HOVWE1201-14-59 09:54:0061 [facility]CHE[facility] YGUBS3614-68-28 09:54:002.5[facility]annCHEM PANEL 2016-02-13 09:54:0026[facility]annCHEM BHNDU3562-17-89 09:54:000.4[facility]annCHE[facility] PFNNO8312-71-50 09:54:0013.5[facility]annCHE[facility] AOBXJ2922-27-34 09:54:0057[facility]annCHEM SEJHO5608-58-76 09:54:0027[facility]annCHEM ZPOWA9254-67-26 09:54:008.7[facility]annCHE[facility] FTCOY7257-25-86 09:54:99527 [facility] SGLHL7392-98-24 09:54:004.5[facility]annCHEM PANEL 2016-02-13 09:54:001.42[facility]annCHEM SKMSX3184-02-09 09:54:11561Ikzocdvd HermannCHEM GSCDS4427-27-68 09:54:37606Hivftqnu HermannCHEM CRXQQ8253-68-03 09:54:0017[facility] RfslgojOYWFCGDLFR6605-21-67 09:54:009.3[facility]annCHEM TOGEP8445-62-97 17:04:004.9[facility]annCHEM WWKMZ4195-87-62 17:04:001.8 [facility] QdaobvbMZUACZEWDQ7893-71-54 17:04:0070.5[facility]annHEMATOLOGY 2016-02-12 17:04:0018.0[facility] TbhotkhZNKLOILMCN6184-90-39 17:04:009.7[facility] UjnwjzvSKRNWHGBRO6804-40-29 17:04:006.4[facility] JmlvuouVJVOHKOOMP5530-07-63 17:04:001.6[facility] QjnjkgeKCRDKNARLX7168-52-58 17:04:000.5[facility] NBUUBYIYPS5756-17-19 17:04:001.3[facility] TuvayavUNHREIIHEP2327-88-13 17:04:000.9 [facility] JtvcnwlGMOUDGQKHB9248-79-66 17:04:000.1[facility]annHEMATOLOGY 2016-02-12 17:04:20886Ipmgztns GwmlnxoGWTGBUZPZQ0509-13-76 17:04:006.9[facility] VqjrrdqYWMMGCZMYE3312-37-60 17:04:0033.9[facility] UrmktovBYMZFDAIBI0119-85-50 17:04:0015.1[facility] KuhsbasAQMVWYLLVF2456-44-19 17:04:002.69[facility] AWPNFMVNVK4522-56-62 17:04:0096.5[facility] CguwsljAQAQRDTFSE3078-10-39 17:04:00 9.1[facility] KhqjrmuESVIJXNWVT0860-55-42 17:04:008.8[facility]annHEMATOLOGY 2016-02-12 17:04:0026.0[facility] XoxpzrzEYZQPSUOVU4939-09-97 17:04:00 Test Item Value Reference Range Interpretation Comments MCH (test code = MCH) 32.7 pg 27.0-31.0 [facility] FxfxdhcHCXVYTRALO5623-25-21 08:18:007.7[facility]annHEMATOLOGY 2016-02-12 08:18:001.5[facility] CmgpaddJGIQRNXAHB1153-78-47 08:18:000.2[facility] OyokoxvEEGGLOTVEF6398-64-96 08:18:000.2[facility] NnolsmtBDJXUCFUAE1105-82-66 08:18:001.2[facility] KbpyvvfEBUZBEQONE8507-58-62 08:18:0069.4[facility] SDNNCOHNES2381-85-81 08:18:0010.5[facility] OkvflqiBNXTHBMVBB6095-05-77 08:18:00 1.6[facility] XmtlcqaNHWUWAYPPY8751-94-59 08:18:001.9[facility]annHEMATOLOGY 2016-02-12 08:18:0017.0[facility] YuhqcnzWVGDNZNCZE4474-27-04 08:18:0028.9[facility] DgbmhxwWJHUNAKXHS6787-06-95 08:18:0033.6[facility] JbsjadzNLIKEMWNXJ3506-00-46 08:18:0014.6[facility] ZxggxxuVIMXFZGKOO5581-83-17 08:18:0096.6[facility] QHOBUGVQYH4949-78-51 08:18:00 Test Item Value Reference Range Interpretation Comments MCH (test code = MCH) 32.4 pg 27.0-31.0 [facility] UszjpnmPCVSRFBHML6375-70-20 08:18:009.7[facility]annHEMATOLOGY 2016-02-12 08:18:0011.1[facility] ZduwgzzMHNZMTZMOH8639-25-22 08:18:002.99[facility] NdvlnebRIQGMKEMET3471-23-63 08:18:31751Jxkzcydn DnnzsxkHAHBWRJIPV5713-33-82 08:18:007.4[facility] WwnkgiqDQNXKQGPTB4718-67-72 09:02:0010.9[facility] NBKFSXTGYS2782-58-41 08:14:000.1[facility] HdtgfusYBAFAXHIMR7387-96-79 08:14:00 14.1[facility] RfdpuimBEHAQTAMTP6282-32-25 18:46:00>100[facility]annBLOOD BANK CGPTLOO8652-54-20 10:38:00Negative (02/08/16 5:38 AM)[facility]annCHEM UIHRL5215-36-10 10:38:000.11[facility]UR[facility] KLWOJ9250-52-28 05:36:00 Negative (02/05/16 12:36 AM)[facility] QNLVX7997-77-46 05:36:001 [facility] NITXS5122-19-90 05:36:00Negative (02/05/16 12:36 AM) [facility] UKBAX6135-31-27 05:36:00Negative *NA*(02/05/16 12:36 AM)[facility] GUDQT7094-65-01 05:36:00Negative (02/05/16 12:36 AM) [facility] HJXAG8575-86-32 05:36:00Clear (02/05/16 12:36 AM) [facility] WEFTZ8808-49-52 05:36:006.0[facility] SAYRM1843-93-82 05:36:00Light Yellow *NA*(02/05/16 12:36 AM)[facility] ZPDRZ1376-68-58 05:36:001.006[facility] NPSSF3749-26-95 21:31:00Negative (02/01/16 4:31 PM)[facility] DNQCY4992-02-37 21:31:00Negative (02/01/16 4:31 PM)[facility] XEFHD3666-67-54 21:31:00Negative (02/01/16 4:31 PM)[facility] KEHIL4156-75-51 21:31:001[facility] SZISA8397-40-26 21:31:003[facility]INE AND ODRTD3785-72-23 21:31:005.5[facility] ZENXS6384-87-23 21:31:00Negative *NA*(02/01/16 4:31 PM)[facility] CVQEK8746-59-63 21:31:00Yellow *NA*(02/01/16 4:31 PM)[facility] TCSGQ6737-62-90 21:31:00Clear (02/01/16 4:31 PM)[facility] ELOWW9211-76-47 21:31:00 1.007[facility] WBUI6713-25-59 21:31:0041[facility] CHEM 2016-02-01 21:31:0070.40[facility] SEXW1638-85-68 21:31:0038[facility] HermannCARDIAC LPDHTSK7863-79-26 20:44:00<0.02[facility]annCHEM PANEL 2016-01-31 20:44:000.13[facility]annCHEM KCFKO1573-12-07 20:44:001.7[facility]annCHEM ZTMNH7761-23-37 20:44:000.4[facility]annCHEM WUMEX7738-37-10 20:44:007.7[facility]annCHEM XDEEA1491-44-45 20:44:0019[facility]annCHEM VEHNC2460-95-30 20:44:0023[facility]annCHEM LFCKU6533-35-10 20:44:0058 [facility]annCHE[facility] SIDTU6651-65-25 20:44:002.8[facility]annCHEM PANEL 2016-01-31 20:44:000.6[facility]annCHEM JQFAP8173-71-68 20:44:004.9[facility]annCHEM CINAG0697-19-00 20:44:0015[facility] IwqijapIFBXOMQGDN8120-73-96 20:44:00 Test Item Value Reference Range Interpretation Comments PTT (test code = PTT) 42.4 s 22.9-35.8 [facility] XdoytzmJALNOHHCWS5839-15-31 20:44:00 Test Item Value Reference Range Interpretation Comments PT (test code = PT) 14.6 s 12.0-14.7 [facility] GzeaytnCGQCUDXMLB5476-43-31 20:44:001.11[facility] HermannLIPIDS 2015-02-16 05:00:0077[facility] XstgtxwQTBGNY3419-27-69 05:00:0029[facility] WFJEVC9484-55-64 05:00:60015Txvrggqz EdtyptoLXQGZK1146-13-84 05:00:007.66 [facility] YjbrqvnNQZDKA8328-88-59 05:00:47127Cpccgfmq KhfdtbvUUNODG9633-21-12 05:00:52408Fdolyfuy HermannCARDIAC TDMTHOH1313-23-43 04:23:000.8[facility] CARDIAC XTOQLIG5653-62-82 04:23:000.6[facility]annCARDIAC FJOUJFR5225-88-16 04:23:00<0.02[facility]annCARDIAC CRWLJIH0777-88-37 04:23:0076[facility]annCARDIAC FMDIGYF7400-42-37 00:27:00<0.02[facility]annCARDIAC ENZYMES 2015-02-16 00:27:0089[facility]annCARDIAC TJVFZJW3661-28-02 00:27:001.0 [facility]AC YZJMORN4788-76-47 00:27:000.9[facility] HermannTHYROID NAOPN6522-21-04 00:27:002.000[facility]annCARDIAC YLEYTHL2341-35-43 19:22:00 0.8[facility]annCARDIAC YXQQFVA0980-33-49 19:22:00<0.02[facility] CARDIAC HWWAYZQ6670-04-20 19:22:94090Yrrcaozs HermannCARDIAC RYGEEPM4282-34-97 19:22:000.9[facility]annCHEM JBCFG6361-43-29 19:22:0070[facility]annCHEM VGYRX6287-10-15 19:22:0087[facility]annCHEM RPZPS0772-95-82 19:22:0023 [facility]annCHE[facility] JPYVW2340-18-61 19:22:0027[facility]annCHEM PANEL 2015-02-15 19:22:003.4[facility]annCHEM EYGJC5005-36-16 19:22:007.7[facility]annCHEM YWJCW7503-28-22 19:22:000.8[facility]annCHEM PACUP2273-38-55 19:22:004.3[facility]annCHEM ADXBP9385-28-14 19:22:006[facility]annCHEM JERFK1678-11-47 19:22:0011.8[facility]annCHEM BURRG4145-87-66 19:22:000.4 [facility]annCHE[facility] ACXZW4922-79-10 19:22:009.2[facility]annCHEM PANEL 2015-02-15 19:22:0025[facility]annCHEM JQBAW9573-63-09 19:22:0088[facility]annCHEM JEGFN4164-10-50 19:22:59323Vzeymkep HermannCHEM NLSVV8022-08-99 19:22:004.8[facility]annCHEM ONQFQ8515-61-48 19:22:44644Tgohbgmf HermannCHEM HHXNR1246-58-80 19:22:001.2[facility]annCHEM TGNUW3321-97-68 19:22:007 [facility]annCHEM RPAUL9100-21-76 19:22:002.0[facility] HermannHEMATOLOGY 2015-02-15 19:22:000.4[facility] KtulfdaRIYIKYBUUE4433-52-45 19:22:000.0[facility] LkovixqAXVJUZIENM4756-27-94 19:22:004.6[facility] TgkgobsLQLQWJCJKK0898-46-61 19:22:000.8[facility] MqtpmqiJGLNHWLYUF1118-44-04 19:22:0010.3[facility] NOKCMGAWJV2268-54-05 19:22:005.0[facility] WlpjefiTDEOAYBNUK5662-96-04 19:22:000.4 [facility] LhmrqvdPGHZJDDGJY4740-40-14 19:22:0025.7[facility] HermannHEMATOLOGY 2015-02-15 19:22:002.0[facility] EfwqxcfCMYBDDJVVZ0411-72-92 19:22:0058.6[facility] NqbheaoZSOBFLSEES8626-23-21 19:22:001.00[facility] DmktdelHPLOBXTWCU9885-71-71 19:22:00 Test Item Value Reference Range Interpretation Comments PT (test code = PT) 13.5 s 12.0-14.7 [facility] QvvhunwJGDJEWMOJV3682-17-45 19:22:00 Test Item Value Reference Range Interpretation Comments PTT (test code = PTT) 33.7 s 22.9-35.8 [facility] IwikillQYAGWCKKYP2576-66-22 19:22:72239Crvqoohl HermannHEMATOLOGY 2015-02-15 19:22:007.8[facility] WkjxohcFWJCUDPJII9468-31-92 19:22:00 Test Item Value Reference Range Interpretation Comments MCH (test code = MCH) 33.3 pg 27.0-31.0 [facility] NxcrnuiYORQWKFFIC5914-97-66 19:22:004.62[facility]annHEMATOLOGY 2015-02-15 19:22:0097.4[facility] TmdjdodCLZWTOWLPJ0293-21-60 19:22:0015.4[facility] LazogzxVDQKFZJUOY8120-66-99 19:22:0045.0[facility] MxsiruuOTJFHBJNPI1326-81-05 19:22:0034.2[facility] VtipqplWEWNNEDCAX0916-81-29 19:22:007.0[facility] WGYQNNTKEN6112-25-51 19:22:0016.0[facility] HermannDRUG OGZDLP6854-43-89 20:10:00 Negative *NA*(01/23/15 3:10 PM)[facility]annDRUG MIOZAN2568-18-36 20:10:00 Negative *NA*(01/23/15 3:10 PM)[facility]annDR[facility] CRRNOG7967-54-78 20:10:00 Negative *NA*(01/23/15 3:10 PM)[facility]annDR[facility] DVRDKK8605-87-36 20:10:00 Negative *NA*(01/23/15 3:10 PM)[facility]annDRUG KSZFZY3781-55-51 20:10:00See Note (01/23/15 3:10 PM)[facility]annDR[facility] XGPEWA7651-59-92 20:10:00Negative *NA*(01/23/15 3:10 PM)[facility]annDR[facility] TLJTEA2338-03-36 20:10:00Positive *ABN*(01/23/15 3:10 PM)[facility]annDRUG HMFOCO3970-00-73 20:10:00Negative *NA*(01/23/15 3:10 PM)[facility] XZZPH0471-34-51 20:10:00Negative (01/23/15 3:10 PM)[facility] LKYHT4271-64-42 20:10:00Negative (01/23/15 3:10 PM)[facility] JOAZK5868-41-81 20:10:003[facility] ELADP8230-58-88 20:10:00<1[facility] STOOL 2015-01-23 20:10:005[facility] DDZRX7398-38-25 20:10:00Yellow *NA*(01/23/15 3:10 PM)[facility] INBKV8375-15-93 20:10:006.0 [facility] MOFWH8764-96-86 20:10:001.017[facility] MHQNC9910-58-80 20:10:00Slight *ABN*(01/23/15 3:10 PM)[facility] UFQHB6945-91-50 20:10:00Moderate *ABN*(01/23/15 3:10 PM)[facility] JTZFK8594-96-60 20:10:00Negative *NA*(01/23/15 3:10 PM)[facility]annCARDIAC LPGQNUB6692-00-55 19:55:000.7[facility]annCARDIAC FCHYMLI8005-11-75 19:55:00 <0.02[facility] HermannCARDIAC EHBUHZA7087-15-13 19:55:93904Vnkdaxgi [facility] CARDIAC GHKUVFO4730-64-79 19:55:001.2[facility] HermannCHEM AYYRI3008-58-70 19:55:0054[facility] HermannCHEM DAPYD7599-84-05 19:55:001.0[facility]annCHEM FEXBU2954-33-20 19:55:0023[facility]annCHEM RQBEB1281-51-96 19:55:004.3 [facility]annCHEM WOOHJ6340-79-64 19:55:0039[facility]annCHEM PANEL 2015-01-23 19:55:008.8[facility]annCHEM YNSID6828-15-58 19:55:009.3[facility]annCHEM XAQGV3772-68-81 19:55:0020.5[facility]annCHEM HXVVZ0280-08-62 19:55:004.5[facility]annCHEM JQYTD3041-44-27 19:55:0010[facility]annCHEM RGWEN7407-34-74 19:55:000.5[facility]annCHEM AXDCQ8847-72-03 19:55:0088 [facility]annCHEM YQRSX6920-95-73 19:55:004.5[facility]annCHEM PANEL 2015-01-23 19:55:03176Xgetmarj HermannCHEM ISOQI2913-67-29 19:55:0017[facility]annCHEM ESDUR2750-28-05 19:55:88165Rqtgxhht HermannCHEM FOXCG4588-13-51 19:55:37400Zwnpyfag HermannCHEM LXZOU4794-80-88 19:55:001.5[facility]annCHEM VEOVM5289-36-56 19:55:0015[facility] VrupawzUWMPSNASYH2973-13-32 19:55:0089.7 [facility] XdhaiocZDMHFKHUTB8289-38-39 19:55:0011.6[facility]annHEMATOLOGY 2015-01-23 19:55:000.8[facility] NwbdjzhGAAFWWFUOW9102-50-55 19:55:006.5[facility] JdixhyhXBTYVQMFIB3900-04-67 19:55:003.2[facility] DzrmcjaFRVFAJCWZJ7082-85-71 19:55:000.4[facility] QdwkvllCSZSXYKUNU2799-43-83 19:55:000.0[facility] CASDILRQUW6604-76-60 19:55:000.1[facility] UtzeeroOAQSSBJOKY3017-38-98 19:55:000.2 [facility] HowvyitHNHLYAFEQH2535-00-26 19:55:000.4[facility] HermannHEMATOLOGY 2015-01-23 19:55:00 Test Item Value Reference Range Interpretation Comments PT (test code = PT) 14.2 s 12.0-14.7 [facility] DslomlpGXORUQVRIA6221-97-65 19:55:001.07[facility]annHEMATOLOGY 2015-01-23 19:55:00 Test Item Value Reference Range Interpretation Comments PTT (test code = PTT) 31.2 s 22.9-35.8 [facility] SzubhnqIKWZKXAJKU0409-73-81 19:55:008.3[facility]annHEMATOLOGY 2015-01-23 19:55:0032.8[facility] RexvlqbDMIQTEJPNU6955-88-16 19:55:0017.0[facility] WrsnnfhDRVTNODPAZ8322-32-43 19:55:29076Rikvlzpl LacihsvVQOOKUJTZE6918-09-92 19:55:0051.7[facility] UymptklGOHEVHEBCF5308-24-79 19:55:0097.9[facility] QTXQIRCRIX0029-75-09 19:55:00 Test Item Value Reference Range Interpretation Comments MCH (test code = MCH) 32.1 pg 27.0-31.0 [facility] JjxzctsGTJLFVWHSM2301-03-82 19:55:0017.0[facility]annHEMATOLOGY 2015-01-23 19:55:0012.9[facility] OxpminmKODTUAYDAS8078-98-39 19:55:005.28[facility] XgofslxBWHAMVKVRZ8843-42-60 19:55:00<0.003[facility] HermannTOXICOLOGY 2015-01-23 19:55:00<3[facility] HermannCHEM IDGCG9809-69-36 17:07:0071[facility] HermannCHEM UQSDZ6690-44-72 17:07:000.3[facility] HermannCHEM RQCTR1152-73-91 17:07:0018[facility]annCHEM UUHTE7581-51-43 17:07:0088[facility] HermannCHEM ZXEXJ4464-92-31 17:07:0036[facility] HermannCHEM AAJGX6182-50-61 17:07:004.0 [facility]annCHEM LXUPR8356-57-94 17:07:008.8[facility] HermannCHEM PANEL 2013-11-20 17:07:0022[facility] HermannCHEM RLQDS8866-00-83 17:07:009.5[facility] HermannCHEM QAMVQ7297-83-23 17:07:41145Prgwtzuz HermannCHEM GYYAZ2130-69-30 17:07:19000Fakwbexn HermannCHEM NPPCD4842-74-05 17:07:004.2[facility] HermannCHEM FOKRP9863-94-86 17:07:001.2[facility] HermannCHEM ZNDQZ8867-45-31 17:07:47178 [facility]annCHEM ZTVNJ1371-93-62 17:07:007[facility] HermannCHEM PANEL 2013-11-20 17:07:004.8[facility] HermannCHEM CWLII4479-01-27 17:07:000.8[facility] HermannCHEM BLTRD8905-07-73 17:07:006[facility] HermannCHEM YMVDL1110-28-73 17:07:0014.2[facility] PonkzvlNMHZOYVOQQ8219-97-36 17:07:003.2[facility] JNTGUDZXUA3159-39-76 17:07:0016.7[facility] LpyqzaqLNSWGZRRMT3607-41-64 17:07:00 6.2[facility] GyyvehrXREIJYCUKE2045-74-38 17:07:0073.3[facility] HermannHEMATOLOGY 2013-11-20 17:07:000.6[facility] OakvegmJYSNBSNGBM1546-19-62 17:07:000.1[facility] FoynzjgKBYUKCKUDA5692-14-74 17:07:000.3[facility] HvzwcdvHPULOEOSHN9824-26-31 17:07:000.6[facility] WvonktqJWWJTDSFAX4822-69-87 17:07:001.6[facility] YLXQEOJQQV6242-02-30 17:07:006.8[facility] GsgotvkTPKWCINKUU6457-62-69 17:07:71217 [facility] OjlptkxECHHBTYWFJ5812-63-50 17:07:007.6[facility] HermannHEMATOLOGY 2013-11-20 17:07:0033.8[facility] WaofsauTVKDQLYSDQ4302-63-62 17:07:0014.2[facility] RftcxswITGPPNXOLR5970-29-14 17:07:00 Test Item Value Reference Range Interpretation Comments MCH (test code = MCH) 33.1 pg 27.0-31.0 [facility] YftdfalMHGAGLIKTV4424-43-07 17:07:0097.9[facility] HermannHEMATOLOGY 2013-11-20 17:07:0014.2[facility] RgleervVJEMDGNLUE1127-02-20 17:07:0042.1[facility] ZywobxzNOTCJJFYYH7934-54-33 17:07:009.3[facility] KedqunuMJBIFDQJGS0972-21-15 17:07:004.30[facility] EsstxyySMCUHKWSOP5913-51-37 17:07:007.7[facility] HermannCHEM TGTJR9633-12-10 19:25:0047[facility] HermannCHEM THGIC6152-08-41 19:25:001.7 [facility] HermannCHEM HFTXE4416-51-64 19:25:0014Mem[facility] HermannELECTROLYTES 2013-11-17 19:25:004.3[facility] PpmdcbzIQUJGPWQEQ5842-64-68 19:25:0036.8[facility] MmfbcclJPSNPFEXBG6974-93-77 19:25:0097.6[facility] RpsfvejYPZKBGVKUW0617-45-74 19:25:00 Test Item Value Reference Range Interpretation Comments MCH (test code = MCH) 33.2 pg 27.0-31.0 [facility] KsipvxqNLRUTYBGKP8582-07-26 19:25:0012.5[facility] HermannHEMATOLOGY 2013-11-17 19:25:007.7[facility] FnlsjixUYBIATNFYQ4938-56-32 19:25:003.77[facility] XcvemzvUOOHXIFSNH6501-88-37 19:25:0014.0[facility] EicsbinGUKJIGTGUL9477-07-23 19:25:38997Hqzywssc YaqhyxqJLWEKHJNUY8482-81-65 19:25:007.7[facility] GNWTCQQBCO1335-81-23 19:25:0034.0[facility] EuugoloFSVTBQECZQ8518-89-44 19:25:00 5.7[facility] MjlsuzrJAEWJOYJVR2609-24-19 19:25:004.3[facility]annHEMATOLOGY 2013-11-17 19:25:000.0[facility] ZyjyshbOYYFBGYHBR1124-33-16 19:25:000.3[facility] TxgidspYRLYUHSBSQ3947-04-80 19:25:005.1[facility] FtkowbzWXMTZXOAEL2527-01-09 19:25:0016.3[facility] SxpstvsJTLHSTFMTQ7220-61-98 19:25:001.2[facility] DOAUMAUSVF4783-79-50 19:25:000.3[facility] OloeothDUKPSQEEZT8225-45-60 19:25:000.4 [facility] SlurtoiTRPNCUYBSL0348-60-86 19:25:0074.0[facility]annTOXICOLOGY 2013-11-17 19:25:0024.4[facility] HermannCHEM NTCIW4121-10-34 18:20:0054[facility] HermannCHEM KCFDL4189-28-55 18:20:001.5[facility] HermannCHEM IKLBR7141-50-34 18:20:0011[facility] IzmvllhEWGPPYYRJNLM0065-57-75 18:20:004.5[facility] KMGFGCXBGQ9314-35-59 18:20:00 Test Item Value Reference Range Interpretation Comments MCH (test code = MCH) 32.7 pg 27.0-31.0 [facility] QjcebjeKKJKAVCXPN4845-61-09 18:20:0033.6[facility]annHEMATOLOGY 2013-11-13 18:20:99451[place] ZunavecQRPAVGPEBL1255-37-25 18:20:0014.0[facility] GnvmttsUVQOFFTXOM1577-42-40 18:20:007.4[facility] JdxpnasONWHBPAQNR8039-03-99 18:20:0012.2[facility] AslubcrULIVQPXWCO1821-24-44 18:20:003.73[facility] WFRYIDMOSK9081-56-73 18:20:0097.6[facility] FihejplLFOBUVYJGI9411-82-76 18:20:00 36.4[facility] GixdimmNTLVSIZFXR8074-16-71 18:20:009.7[facility]annHEMATOLOGY 2013-11-13 18:20:000.1[facility] FgboelgLZORUGFLDL8271-50-85 18:20:002.0[facility] ItxdhjbUMVEESKWUB0749-25-12 18:20:000.7[facility] NcmzmehLAOSFSZSUQ1696-96-60 18:20:000.4[facility] RjmgxmzTOVORKYSQB8141-93-80 18:20:000.6[facility] YTXPICXMZP3946-59-78 18:20:006.6[facility] InundhsZQUHRXNRCZ1921-22-07 18:20:00 20.5[facility] RsgxfqgIYLUGYNDVU2597-37-49 18:20:007.3[facility] HermannHEMATOLOGY 2013-11-13 18:20:003.7[facility] VobdkdcXJTDFHTXCU1429-94-58 18:20:0067.9[facility] YyjrqvcOXBEZSGJAK7300-88-44 18:20:0024.1[facility]
--- NOTE | 2020-12-09 20:51 | RAD REPORT ---
EXAM DESCRIPTION: CT - Head Brain Wo Cont - 12/09/2020 8:45 pm CLINICAL HISTORY: Seizure;Traumaaltered mental status COMPARISON: Head Brain Wo Cont dated 09/01/2019 TECHNIQUE: Axial 5 mm thick images of the head were obtained without IV contrast. All CT scans are performed using dose optimization technique as appropriate and may include automated exposure control or mA/KV adjustment according to patient size. FINDINGS: No intracranial hemorrhage, mass, edema or shift of mid-line structures. No acute infarcti on changes seen. No cortical edema or sulcal effacement. Chronic ischemic pattern seen in the cerebra l white matter. No significant atrophy. Ventricles are normal. Mastoid air cells and visualized portions of the paranasal sinuses are clear. No acute bony findings. IMPRESSION: Negative non-contrast CT head examination for acute finding. No significant change from comparison.
[2020-12-09] MEDS ORDERED: NA CHLORIDE 0.9% 1,000 ML ONE (21:09)
[2020-12-09] MEDS ORDERED: NA CHLORIDE 0.9% 100 ML ONE (21:09)
[2020-12-09] MEDS ORDERED: LEVETIRACETAM 500 MG/5 ML VIAL IV ONE (21:09)
[2020-12-09 22:02] LABS: Absolute Lymphocytes (CBC) 2.7 K/uL (0.7-4.9); Basophils % 1.2 % (0-1.3); Hematocrit 40.7 % (39.6-49.0); Lymphocytes % 32.9 % (15.3-44.8); MPV 7.7 fL (7.6-11.3); RBC Red Blood Cell Count 4.42 M/uL (4.33-5.43)
[2020-12-09 22:05] LABS: Protime INR 1.09
[2020-12-09 22:06] LABS: ALT/SGPT 18 U/L (12-78); AST/SGOT 17 U/L (15-37); Albumin 3.8 g/dL (3.4-5.0); Alkaline Phosphatase 88 U/L (45-117); BUN Blood Urea Nitrogen 33 mg/dL (7-18); Bicarbonate 22 mmol/L (21-32); Bilirubin Direct 0.1 mg/dL (0-0.2); Bilirubin Total 0.5 mg/dL (0.2-1.0); Glucose Level 70 mg/dL (74-106); Potassium 3.2 mmol/L (3.5-5.1); Protein, Total 7.7 g/dL (6.4-8.2); Sodium Level 137 mmol/L (136-145)
[2020-12-09 22:52] LABS: Creatine Phosphokinase 334 U/L (39-308); Troponin (Emerg Dept Use Only) < 0.02 ng/mL (0.0-0.045)
[2020-12-09] MEDS ORDERED: D5 0.9 NS 1,000 ML IV ONE (23:16)
[2020-12-10 00:16] LABS: Urine Blood Negative (Negative); Urine Glucose Negative (Negative); Urine Protein 1+ (Negative); Urine pH 5.5 (5.0-7.0)
--- NOTE | 2020-12-10 01:02 | ER ---
Nurse's Notes [facility] Name: Karlos Leblanc Age: 54 yrs Sex: Male : 1965 Arrival Date: 12/09/2020 Time: 16:32 Bed 17 Private MD: Diagnosis: Acute Kidney Injury;Dehydration Presentation: 12/09 16:40 Onset of symptoms was November 2020. aa5 16:40 Risk Assessment: Do you want to hurt yourself or someone else? Patient reports no aa5 desire to harm self or others. 16:40 Acuity: KENIA 3 aa5 16:40 Method Of Arrival: EMS: [facility] aa5 16:40 Chief complaint: Patient states: not eating x 2-3 days ago, pt states "I'm just not aa5 hungry". Pt also reports multiple seizures since last night. Pt c/o pain all over. 16:40 Coronavirus screen: At this time, the client does not indicate any symptoms associated aa5 with coronavirus-19. Ebola Screen: Patient negative for fever greater than or equal to 101.5 degrees Fahrenheit, and additional compatible Ebola Virus Disease symptoms. Initial Sepsis Screen: Does the patient meet any 2 criteria? No. Patient's initial sepsis screen is negative. Does the patient have a suspected source of infection? No. Patient's initial sepsis screen is negative. Historical: - Allergies: 16:43 NKDA; aa5 - Home Meds: 16:43 gabapentin 100 mg Oral cap 2 caps 3 times per day [Active]; Keppra 100 mg/mL Oral soln aa5 [Active]; lisinopril 10 mg Oral tab 1 tab once daily [Active]; Percocet 2.5-325 mg Oral tab [Active]; - PMHx: 16:43 diabetes mellitus; Hypertension; Seizures; aa5 - Immunization history:: Adult Immunizations unknown. - Social history:: Smoking status: Patient reports the use of cigarette tobacco products, smokes two packs cigarettes per day. Screenin:00 Abuse screen: Denies threats or abuse. Nutritional screening: No deficits noted. jb4 Tuberculosis screening: No symptoms or risk factors identified. Fall Risk None identified. Assessment: 20:00 General: Appears in no apparent distress. comfortable, Behavior is calm, cooperative, jb4 appropriate for age. Pain: Denies pain. Neuro: Level of Consciousness is awake, alert, obeys commands, Oriented to person, place, time, situation. Cardiovascular: Patient's skin is warm and dry. Respiratory: Airway is patent Respiratory effort is even, unlabored, Respiratory pattern is regular, symmetrical. GI: No signs and/or symptoms were reported involving the gastrointestinal system. : No signs and/or symptoms were reported regarding the genitourinary system. EENT: No signs and/or symptoms were reported regarding the EENT system. Derm: Skin has skin tears on left elbow Skin is pink, warm \\T\\ dry. Musculoskeletal: Circulation, motion, and sensation intact. Range of motion: intact in all extremities. 21:00 Reassessment: Patient appears in no apparent distress at this time. Patient and/or jb4 family updated on plan of care and expected duration. Pain level reassessed. Patient is alert, oriented x 3, equal unlabored respirations, skin warm/dry/pink. 22:00 Reassessment: Patient appears in no apparent distress at this time. Patient and/or jb4 family updated on plan of care and expected duration. Pain level reassessed. Patient is alert, oriented x 3, equal unlabored respirations, skin warm/dry/pink. 23:00 Reassessment: Patient and/or family updated on plan of care and expected duration. Pain jb4 level reassessed. Pt is resting in bed with eyes closed, respirations are even and unlabored w/ no s/s of pain or distress noted. 23:56 Reassessment: Patient appears in no apparent distress at this time. Patient and/or jb4 family updated on plan of care and expected duration. Pain level reassessed. Patient is alert, oriented x 3, equal unlabored respirations, skin warm/dry/pink. 12/10 00:45 Reassessment: Patient and/or family updated on plan of care and expected duration. Pain ak2 level reassessed. 00:49 Reassessment: Patient and/or family updated on plan of care and expected duration. Pain ak2 level reassessed. 02:44 Reassessment: Patient and/or family updated on plan of care and expected duration. Pain ak2 level reassessed. 03:36 Reassessment: Patient and/or family updated on plan of care and expected duration. Pain ak2 level reassessed. 18:54 Reassessment: PT D/C FROM Checkout10. bp Vital Signs: 12/09 16:40 BP 115 / 76; Pulse 62; Resp 16 S; Temp 97.7(TE); Pulse Ox 98% on R/A; Weight 63.5 kg aa5 (R); Height 6 ft. 1 in. (185.42 cm) (R); 20:00 BP 92 / 61; Pulse 49; Resp 16; Pulse Ox 97% on R/A; jb4 21:15 BP 115 / 59; Pulse 49; Resp 18; Pulse Ox 98% on R/A; jb4 22:30 BP 123 / 78; Pulse 48; Resp 16; Pulse Ox 98% on R/A; jb4 23:15 BP 114 / 59; Pulse 53; Resp 16; Pulse Ox 98% on R/A; jb4 12/10 01:29 BP 118 / 62; Pulse 68; Resp 16; Pulse Ox 100% on R/A; ak2 02:44 BP 120 / 58; Pulse 71; Resp 16; Pulse Ox 99% on R/A; ak2 03:36 BP 117 / 63; Pulse 67; Resp 18; Pulse Ox 98% on R/A; ak2 12/09 16:40 Body Mass Index 18.47 (63.50 kg, 185.42 cm) aa5 ED Course: 12/09 16:32 Patient arrived in ED. mr 16:43 Arm band placed on. aa5 16:44 Triage completed. aa5 16:55 EKG completed in triage. Results shown to MD. aa5 19:54 Celso Mccain MD is Attending Physician. [facility] 20:15 Jason Cabrera, RN is Primary Nurse. [facility] 20:45 CT Head Brain wo Cont In Process Unspecified. EDMS 21:30 Initial lab(s) drawn, by ma, sent to lab. Inserted saline lock: 18 gauge in right jb4 forearm, using aseptic technique. Blood collected. 12/10 01:00 Fili Ramirez MD is Hospitalizing Provider. [facility] 11:40 Primary Nurse role handed off by Jason Cabrera, RN bp 11:40 Narciso Concepcion, TAVO is Primary Nurse. bp Administered Medications: 12/09 21:30 Drug: NS 0.9% 1000 ml Route: IV; Rate: 1000 ml; Site: right forearm; jb4 22:30 Follow up: IV Status: Completed infusion; IV Intake: 1000ml bb 21:30 Drug: Keppra (levETIRAcetam) 1000 mg Route: IV; Rate: per protocol; Site: right forearm;4 21:45 Follow up: IV Status: Completed infusion; IV Intake: 100ml bb 23:05 Drug: D5-NS 1000 ml Route: IV; Rate: per protocol; Site: right forearm; jb4 12/10 00:05 Follow up: IV Status: Completed infusion; IV Intake: 1000ml bb Point of Care Testing: Blood Glucose: 12/09 16:49 Blood Glucose: 90 mg/dL; aa5 Ranges: Intake: 21:45 IV: 100ml; Total: 100ml. bb 22:30 IV: 1000ml; Total: 1100ml. bb 12/10 00:05 IV: 1000ml; Total: 2100ml. bb Outcome: 01:01 Decision to Hospitalize by Provider. [facility] 18:54 Patient left the ED. bp Signatures: Dispatcher [employer] EDLA Joeslyn Torres mr Kathryn Roman, RN RN bb Ella Talavera, RN TAVO iw Scarlet Washington RN RN aa5 Jason Cabrera RN RN jbNarciso Stewart RN RN bp Celso Mccain MD MD 7 Jai Ceja2 Corrections: (The following items were deleted from the chart) 12/09 16:43 16:37 Chief complaint: iw aa5 16:44 16:37 Chief complaint: aa5 aa5 16:50 16:40 Chief complaint: Patient states: not eating x 2-3 days ago, pt states "I'm just aa5 not hungry". Pt also reports multiple seizures since last night. aa5
--- NOTE | 2020-12-10 01:02 | EDPHYS ---
Physician Documentation [facility] Name: Karlos Leblanc Age: 54 yrs Sex: Male : 1965 Arrival Date: 12/09/2020 Time: 16:32 Bed 17 Private MD: TINY Physician Celso Mccain HPI: 12/09 20:57 This 54 yrs old Male presents to ER via EMS with complaints of Decreased mh7 Appetite. 20:57 The patient presents after having a single isolated seizure, that lasted an unknown mh7 period of time. Character of seizure(s): Loss of consciousness: the patient experienced loss of consciousness, Motor activity: the motor activity is unknown, Incontinence: none, Apnea: the patient did not experience apnea, Circulation: the patient did not experience evidence of pulse disturbance, Eye movements: are unknown. Seizure onset: today. Context: the seizure(s) was witnessed, by no one, the downtime is unknown, occurred at home, occurred while the patient was sitting. Seizure Hx: Original onset: longstanding. Associated injury: Head/face: forehead, pain. The patient has experienced similar episodes in the past, multiple times. Historical: - Allergies: 16:43 NKDA; aa5 - Home Meds: 16:43 gabapentin 100 mg Oral cap 2 caps 3 times per day [Active]; Keppra 100 mg/mL Oral soln aa5 [Active]; lisinopril 10 mg Oral tab 1 tab once daily [Active]; Percocet 2.5-325 mg Oral tab [Active]; - PMHx: 16:43 diabetes mellitus; Hypertension; Seizures; aa5 - Immunization history:: Adult Immunizations unknown. - Social history:: Smoking status: Patient reports the use of cigarette tobacco products, smokes two packs cigarettes per day. ROS: 20:57 Constitutional: Negative for fever, chills, and weight loss, Eyes: Negative for injury, mh7 pain, redness, and discharge, ENT: Negative for injury, pain, and discharge, Neck: Negative for injury, pain, and swelling, Cardiovascular: Negative for chest pain, palpitations, and edema, Respiratory: Negative for shortness of breath, cough, wheezing, and pleuritic chest pain, Abdomen/GI: Negative for abdominal pain, nausea, vomiting, diarrhea, and constipation, Back: Negative for injury and pain, : Negative for injury, bleeding, discharge, and swelling, MS/Extremity: Negative for injury and deformity, Skin: Negative for injury, rash, and discoloration, Neuro: Negative for headache, weakness, numbness, tingling, and seizure, Psych: Negative for depression, anxiety, suicide ideation, homicidal ideation, and hallucinations, Allergy/Immunology: Negative for hives, rash, and allergies, Endocrine: Negative for neck swelling, polydipsia, polyuria, polyphagia, and marked weight changes, Hematologic/Lymphatic: Negative for swollen nodes, abnormal bleeding, and unusual bruising. Exam: 20:57 Head/Face: Normocephalic, atraumatic. Eyes: Pupils equal round and reactive to light, mh7 extra-ocular motions intact. Lids and lashes normal. Conjunctiva and sclera are non-icteric and not injected. Cornea within normal limits. Periorbital areas with no swelling, redness, or edema. Neck: Trachea midline, no thyromegaly or masses palpated, and no cervical lymphadenopathy. Supple, full range of motion without nuchal rigidity, or vertebral point tenderness. No Meningismus. Chest/axilla: Normal chest wall appearance and motion. Nontender with no deformity. No lesions are appreciated. Cardiovascular: Regular rate and rhythm with a normal S1 and S2. No gallops, murmurs, or rubs. Normal PMI, no JVD. No pulse deficits. Respiratory: Lungs have equal breath sounds bilaterally, clear to auscultation and percussion. No rales, rhonchi or wheezes noted. No increased work of breathing, no retractions or nasal flaring. Abdomen/GI: Soft, non-tender, with normal bowel sounds. No distension or tympany. No guarding or rebound. No evidence of tenderness throughout. Back: No spinal tenderness. No costovertebral tenderness. Full range of motion. Skin: Warm, dry with normal turgor. Normal color with no rashes, no lesions, and no evidence of cellulitis. Neuro: Awake and alert, GCS 15, oriented to person, place, time, and situation. Cranial nerves II-XII grossly intact. Motor strength 5/5 in all extremities. Sensory grossly intact. Cerebellar exam normal. Normal gait. Psych: Awake, alert, with orientation to person, place and time. Behavior, mood, and affect are within normal limits. 20:57 Constitutional: The patient appears in no acute distress, alert, awake, desheveled 20:57 MS/ Extremity: Pulses equal, no cyanosis. Neurovascular intact. Full, normal range [facility]. Vital Signs: 16:40 BP 115 / 76; Pulse 62; Resp 16 S; Temp 97.7(TE); Pulse Ox 98% on R/A; Weight 63.5 kg aa5 (R); Height 6 ft. 1 in. (185.42 cm) (R); 20:00 BP 92 / 61; Pulse 49; Resp 16; Pulse Ox 97% on R/A; jb4 21:15 BP 115 / 59; Pulse 49; Resp 18; Pulse Ox 98% on R/A; jb4 22:30 BP 123 / 78; Pulse 48; Resp 16; Pulse Ox 98% on R/A; jb4 23:15 BP 114 / 59; Pulse 53; Resp 16; Pulse Ox 98% on R/A; jb4 12/10 01:29 BP 118 / 62; Pulse 68; Resp 16; Pulse Ox 100% on R/A; ak2 02:44 BP 120 / 58; Pulse 71; Resp 16; Pulse Ox 99% on R/A; ak2 03:36 BP 117 / 63; Pulse 67; Resp 18; Pulse Ox 98% on R/A; ak2 12/09 16:40 Body Mass Index 18.47 (63.50 kg, 185.42 cm) [facility] MDM: 00:59 Differential diagnosis: drug overdose, cardiac arrhythmia, seizure. Data reviewed: [facility] vital signs, nurses notes, old medical records, lab test result(s), cardiac enzymes, CBC, electrolytes, urinalysis, EKG, radiologic studies, CT scan. Data interpreted: Pulse oximetry: on room air is 98 %. Interpretation: normal. Counseling: I had a detailed discussion with the patient and/or guardian regarding: the historical points, exam findings, and any diagnostic results supporting the discharge/admit diagnosis, lab results, radiology results, the need for further work-up and treatment in the hospital. Response to treatment: the patient's symptoms have mildly improved after treatment. 01:01 Patient medically screened. [facility] 12/09 17:00 Order name: Glucose, Ancillary Testing; Complete Time: 20:01 EDOK 12/09 20:25 Order name: Acetaminophen [facility] 12/09 20:25 Order name: Basic Metabolic Panel [facility] 12/09 20:25 Order name: CBC with Diff; Complete Time: 22:22 [facility] 12/09 20:25 Order name: ETOH Level; Complete Time: 22:22 [facility] 12/09 20:25 Order name: Hepatic Function; Complete Time: 23:35 [facility] 12/09 20:25 Order name: PT-INR; Complete Time: 22:22 [facility] 12/09 20:25 Order name: Ptt, Activated; Complete Time: 22:22 [facility] 12/09 20:25 Order name: Salicylate; Complete Time: 22:22 [facility] 12/09 20:25 Order name: Urine Drug Screen [facility] 12/09 20:26 Order name: Acetaminophen Level; Complete Time: 23:35 [facility] 12/09 20:26 Order name: Basic Metabolic Panel; Complete Time: 23:35 [facility] 12/09 22:23 Order name: CPK [facility] 12/09 22:23 Order name: Troponin (emerg Dept Use Only) [facility] 12/09 20:26 Order name: CT Head Brain wo Cont; Complete Time: 21:04 [facility] 12/09 22:25 Order name: Creatine Phosphokinase; Complete Time: 23:35 [facility] 12/09 22:25 Order name: Troponin (Emerg Dept Use Only); Complete Time: 23:35 [facility] 12/10 00:16 Order name: Urine Dipstick-Ancillary [facility] 12/10 05:09 Order name: Glucose, Ancillary Testing [facility] 12/10 06:27 Order name: CBC with Automated Diff [facility] 12/10 06:40 Order name: Comprehensive Metabolic Panel [facility] 12/10 06:40 Order name: T4 Free [facility] 12/10 06:40 Order name: Thyroid Stimulating Hormone [facility] 12/10 06:59 Order name: Hemoglobin A1c [facility] 12/10 12:39 Order name: Glucose, Ancillary Testing [facility] 12/10 14:06 Order name: RAD [facility] 12/09 20:25 Order name: EKG; Complete Time: 20:26 [facility] 12/09 20:25 Order name: EKG - Nurse/Tech; Complete Time: 21:26 [facility] 12/09 20:25 Order name: IV Saline Lock; Complete Time: 21:43 [facility] 12/09 20:25 Order name: Labs collected and sent; Complete Time: 21:43 [facility] 12/09 20:25 Order name: Urine Dipstick-Ancillary (obtain specimen); Complete Time: 00:18 [facility] 12/10 01:02 Order name: CONS Physician Consult EDMS Administered Medications: 12/09 21:30 Drug: NS 0.9% 1000 ml Route: IV; Rate: 1000 ml; Site: right forearm; 4 22:30 Follow up: IV Status: Completed infusion; IV Intake: 1000ml bb 21:30 Drug: Keppra (levETIRAcetam) 1000 mg Route: IV; Rate: per protocol; Site: right forearm;[facility] 21:45 Follow up: IV Status: Completed infusion; IV Intake: 100ml bb 23:05 Drug: D5-NS 1000 ml Route: IV; Rate: per protocol; Site: right forearm; [facility] 12/10 00:05 Follow up: IV Status: Completed infusion; IV Intake: 1000ml bb Point of Care Testing: Blood Glucose: 12/09 16:49 Blood Glucose: 90 mg/dL; aa5 Ranges: Critical Glucose Levels:Adult <50 mg/dl or >400 mg/dl <40 mg/dl or >180 mg/dl Disposition Summary: 12/10/20 01:01 Hospitalization Ordered Hospitalization Status: Inpatient Admission [facility] Provider: Fili Ramirez Condition: Stable [facility] Problem: new [facility] Symptoms: have improved [facility] Bed/Room Type: Standard [facility] Location: [facility] ER HOLD(12/10/20 01:44) am4 Room Assignment: ERHOLD-(12/10/20 01:44) am4 Diagnosis - Acute Kidney Injury [facility] - Dehydration [facility] Forms: - Medication Reconciliation Form [facility] - SBAR form [facility] Signatures: Dispatcher [employer] EDScarlet Resendez RN RN aa5 Jason Cabrera RN RN jb4 Celso Mccain MD MD 7 Milla Anderson am4 Kathryn Roman RN bb Corrections: (The following items were deleted from the chart) 21:44 20:25 Suicide Screening ([place]) ordered. [place] [id number] 22:25 22:23 Creatine Phosphokinase ordered. [facility] EDOK 22:25 22:23 Troponin (Emerg Dept Use Only) ordered. [facility] 12/10 01:44 01:01 Telemetry/MedSurg (Inpatient) mh7 am4 01:44 01:01 7 am4
[2020-12-10 01:22] LABS: Barbiturates NEGATIVE (NEGATIVE); Benzodiazepines POSITIVE (NEGATIVE); Cocaine NEGATIVE (NEGATIVE); METHAMPHETAM NEGATIVE (NEGATIVE); Methadone NEGATIVE (NEGATIVE); Opiates NEGATIVE (NEGATIVE); Phencyclidine NEGATIVE (NEGATIVE); THC Cannibis NEGATIVE (NEGATIVE)
--- NOTE | 2020-12-10 02:52 | P.HP ---
Certification for Inpatient Patient admitted to: Observation With expected LOS: <2 Midnights Patient will require the following post-hospital care: None Practitioner: I am a practitioner with admitting privileges, knowledge of patient current condition, hospital course, and medical plan of care. Services: Services provided to patient in accordance with Admission requirements found in Title 42 Section 412.3 of the Code of Federal Regulations Patient History Date of Service: 12/10/20 Reason for admission: seizure, CODY History of Present Illness: Mr. Leblanc is a 54 yo M with seizures, DM, HTN, CAD here today after a seizure. His landlord called EMS. He does not remember the event, but says he felt normal earlier in the day. He takes Keppra 750 BID, says he took his medication this morning. Reports anorexia. K 3.2. BUN 33, Cr 2.3, GFR 26. Glu 70. CT Head without acute findings. Allergies No Known Allergies Allergy (Verified 09/02/19 00:22) Home Medications: Alprazolam [Xanax] 1 tab PO BEDTIME 10/04/20 Gabapentin 1 tab PO BID 10/04/20 lisinopriL [Lisinopril] 1 tab PO DAILY 10/04/20 levETIRAcetam [Keppra*] 750 mg PO BID #90 tab 12/01/20 - Past Medical/Surgical History Diabetic: No -: HTN -: CHF, diastolic dysfunction -: COPD -: CAD -: PVD -: Left partial foot amputation -: History of osteomyelitis -: History of drug use -: Alcohol abuse -: Tobacco abuse -: GERD -: Rt great toe & 2nd toe amputated-Dec 2015 -: Left partial foot amputation-January 2019 Psychosocial/ Personal History: Patient currently lives in a trailer - Family History Father -: Cancer Mother -: Cancer - Social History Smoking Status: Current every day smoker Alcohol use: No CD- Drugs: No Caffeine use: Yes Place of Residence: Home Review of Systems 10-point ROS is otherwise unremarkable Neurological: Seizures Physical Examination - Physical Exam General: Alert, In no apparent distress, Disheveled HEENT: Atraumatic, PERRLA, Mucous membr. moist/pink, EOMI, Sclerae nonicteric Neck: Supple, 2+ carotid pulse no bruit, No LAD, Without JVD or thyroid abnormality Respiratory: Clear to auscultation bilaterally, Normal air movement Cardiovascular: Regular rate/rhythm, Normal S1 S2 Gastrointestinal: Normal bowel sounds, No tenderness Musculoskeletal: No tenderness Integumentary: No rashes Neurological: Normal speech, Normal strength at 5/5 x4 extr, Normal tone, Abnorm al affect Lymphatics: No axilla or inguinal lymphadenopathy - Studies Laboratory Data (last 24 hrs) 12/09/20 21:30: PT 12.5, INR 1.09, APTT 35.0 12/09/20 21:30: WBC 8.10 D, Hgb 13.9, Hct 40.7, Plt Count 209 D 12/09/20 21:30: Sodium 137, Potassium 3.2 L, BUN 33 H, Creatinine 2.60 H D, Glucose 70 L, Total Bilirubin 0.5, AST 17, ALT 18, Alkaline Phosphatase 88 Assessment and Plan - Problems (Diagnosis) (1) Seizures Current Visit: No Status: Acute (2) CAD (coronary artery disease) Onset Date: 03/15/17 Current Visit: No Status: Chronic Qualifiers: Coronary Disease-Associated Artery/Lesion type: unspecified vessel or lesion type [place] vs. transplanted heart: [place] heart Associated angina: without angina Qualified Code(s): I25.10 - Atherosclerotic heart disease of [place] coronary artery without angina pectoris (3) CODY (acute kidney injury) Current Visit: Yes Status: Acute (4) Hypoglycemia Current Visit: Yes Status: Acute - Plan neurology consulted, given IV keppra in the ED, Keppra level pending, continue Keppra 750 BID continue IVF hydration, will consult nephrology if Cr not improving monitor glucose q6hr, hypoglycemia precautions, A1c pending potassium replacement protocol seizure precautions, PRN ativan for seizures dietitian consulted for poor appetite Discharge Plan: Home Plan to discharge in: 24 Hours - Advance Directives Does patient have a Living Will: No Does patient have a Durable POA for Healthcare: No - Code Status/Comfort Care Code Status Assessed: Yes (full code ) Critical Care: No Time Spent Managing Pts Care (In Minutes): 70
[2020-12-10] MEDS ORDERED: D50W 25 GM/50 ML SYRINGE IV PRN (04:46)
[2020-12-10] MEDS ORDERED: ONDANSETRON 4 MG/2 ML VIAL IV PRN (04:46)
[2020-12-10] MEDS ORDERED: GLUCAGON 1 MG/VIAL IM PRN (04:46)
[2020-12-10] MEDS: INSULIN -REGULAR HUMAN 50 UNIT/0.5 ML ML SQ SCH ×2 (04:46→10:46)
[2020-12-10] MEDS ORDERED: ACETAMINOPHEN 500 MG TAB PO PRN (04:46)
[2020-12-10] MEDS ORDERED: LORazepam 2 MG/ML VIAL IV PRN (04:46)
[2020-12-10] MEDS ORDERED: NA CHLORIDE 0.9% 1,000 ML IV SCH (04:46)
[2020-12-10] MEDS: KCL 20 MEQ/100 mL IVPB 20 MEQ/100 ML BAG IV SCH ×2 (04:46→06:46)
[2020-12-10 05:01] VITALS: BMI 18.4
[2020-12-10 05:05] VITALS: BP 104/53; TEMP 97.9
[2020-12-10] MEDS ORDERED: KCL 20 MEQ/100 mL IVPB 20 MEQ/100 ML BAG IV ONE ×2 (05:14→09:44)
[2020-12-10 05:31] VITALS: O2SAT 100
[2020-12-10 06:12] LABS: Absolute Lymphocytes (CBC) 1.9 K/uL (0.7-4.9); Basophils % 1.4 % (0-1.3); Hematocrit 37.2 % (39.6-49.0); Lymphocytes % 28.8 % (15.3-44.8); MPV 7.9 fL (7.6-11.3); RBC Red Blood Cell Count 4.06 M/uL (4.33-5.43)
[2020-12-10 06:40] LABS: Albumin 3.3 g/dL (3.4-5.0); Bilirubin Total 0.4 mg/dL (0.2-1.0); Potassium 3.7 mmol/L (3.5-5.1); Protein, Total 6.9 g/dL (6.4-8.2); Thyroid Stimulating Hormone 0.703 uIU/mL (0.360-3.740)
[2020-12-10] MEDS ORDERED: PNEUMOCOCCAL VACCINE 0.5 ML IMVAC ONE (09:00)
[2020-12-10] MEDS ORDERED: levETIRAcetam 500 MG TAB PO SCH (09:00)
[2020-12-10] MEDS ORDERED: HEPARIN 5000 UNIT/ML 1 ML VIAL SQ SCH (09:00)
[2020-12-10] MEDS ORDERED: HEPARIN 5000 UNIT/ML 1 ML VIAL ONE (09:44)
[2020-12-10] MEDS ORDERED: levETIRAcetam 500 MG TAB ONE (09:44)
--- NOTE | 2020-12-10 11:44 | EKG ---
Test Date: 2020-12-09 Test Time: 16:52:49 Wash Driller: KATY MEASUREMENT RESULTS: Intervals: Rate: 63 LA: 144 QRSD: 94 QT: 430 QTc: 440 [place]: P: 61 LA: 144 QRS: 52 T: 54 INTERPRETIVE STATEMENTS: Normal sinus rhythm Minimal voltage criteria for LVH, may be normal variant Borderline ECG Compared to ECG 11/30/2020 17:01:15 Left ventricular hypertrophy now present Incomplete right bundle-branch block no longer present Electronically Signed On 12-10-20 11:42:10 CDT by Bill Clark
--- NOTE | 2020-12-10 14:05 | RAD REPORT ---
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 AC joint degenerative riya nges arm present. No fracture evident.
[2020-12-10] MEDS: MORPHINE 2 MG/ML SYR IV PRN ×2 (14:45→18:45)
[2020-12-10] MEDS ORDERED: LORazepam 2 MG/ML VIAL ONE (15:20)
[2020-12-10] MEDS ORDERED: MORPHINE 2 MG/ML SYR ONE ×2 (15:21→18:26)
[2020-12-10] MEDS ORDERED: NA CHLORIDE 0.9% 1,000 ML ONE (15:26)
== END 2020-12-10 19:07 | disposition home or self-care (01) ==
LOC: ER 16:27 → ERHOLD 12-10 01:01
PROVIDERS: ADMIT Hospitalist; ATTEND Hospitalist
DX: R56.9 Unspecified convulsions (principal); E11.649 Type 2 diabetes mellitus with hypoglycemia without coma; N17.9 Acute kidney failure, unspecified; E86.0 Dehydration; I25.10 Atherosclerotic heart disease of native coronary artery without angina pectoris; I11.0 Hypertensive heart disease with heart failure; I50.30 Unspecified diastolic (congestive) heart failure; J44.9 Chronic obstructive pulmonary disease, unspecified; I73.9 Peripheral vascular disease, unspecified; R63.0 Anorexia; Z68.1 Body mass index [BMI] 19.9 or less, adult; K21.9 Gastro-esophageal reflux disease without esophagitis; F10.10 Alcohol abuse, uncomplicated; F17.210 Nicotine dependence, cigarettes, uncomplicated; Z79.899 Other long term (current) drug therapy; Z80.9 Family history of malignant neoplasm, unspecified
CPT/HCPCS: 96361; 93005; 85025 ×2; 80048; 36415; 80320; 82550; 80329 ×2; 85610; 82947 ×3; 80076; 85730; 84443; 81003; 83036; 84484; 84439; 80053; 80177; 80307; 70450; 73030; 94760 ×2; 96374; 99284; J1644; J3480 ×2; J2270 ×2; J1953; J7042; J7030 ×2; G0378

== ENCOUNTER 2021-01-14 11:53 | Emergency (ER) | payer OTHER ==
--- OUTSIDE RECORDS SUMMARY | 2021-01-14 12:03 | XMS REPORT | Continuity of Care Document ---
:1965 Author Organization [facility] t Address [address] [place] [address] Care Team Providers Name Role Phone JANETTE Attending Clinician Unavailable ARIF Attending Clinician [...] Seizures [facility] Disease [facility] Metabolic Metabolic Disease Active 2016-[address] [facility] [address] acidosis acidosis 06-20 [facility] Hypertensi Hypertensi Disease Active 2016-[address] on, on, 06-17 [facility] - essential essential 00:00[facility] Medi mari 00 Center Leukocytos Leukocytos Disease Active 2016-[address] is is 06[facility]17 [facility] Tongue Tongue Disease Active 2016-[address] [facility] laceration laceration 06-17 Ev[facility] k[facility] - [facility] 00 [facility] H/O ETOH H/O ETOH Disease Active 2016[facility] Acute Acute Disease Active 2016-[address] [facility] kidney kidney 06-17 [facility] injury injury [facility] 00 [facility] Status Status Disease Active 2016-[address] [facility] epilepticu epilepticu 06-16 Evelyn kes - s s 00:[facility] 00 Center ANEMIA Diagnosis Active 2015-052016-04-05 Mem oria 06-04 09:38:00 l ANEMIA 00:00: Kai 00 Active 04/04/2016 [facility] OTHER Diagnosis Active 2015-052016-03-13 Mem oria 19:39:00 l OTHER 00:00: Kai 00 Active 03/13/2016 [facility] FOOT Diagnosis Active 2016-02-12 Mem oria GANGRENE 01-30 20:08:00 l FOOT 00:00: Cornelius GANGRENE 00 Active 01/31/2016 [facility] LEFT FOOT Diagnosis Active 2016-01-31 [facility]oria SORES 01-30 22:38:00 l LEFT 00:00: Kai FOOT SORES 00 Active 01/31/2016 [facility] CP Diagnosis Active 2015-02-15 Mem oria 02-15 16:10:00 l CP 00:00: Cornelius 00 Active 02/15/2015 [facility] CHEST PAIN Diagnosis Active 2015-02-15 Memoria 02-15 18:21:00 l CHEST 00:00: Cornelius PAIN 00 Active 02/15/2015 [facility] LEFT WRIST Diagnosis Active 2015-02-09 Memoria PAIN 02-09 16:02:00 l LEFT 00:00: Kai WRIST PAIN 00 Active 02/09/2015 [facility] AMS Diagnosis Active 2015-01-23 Mem oria 01-23 15:36:00 l AMS 00:00: Kai 00 Active 01/23/2015 [facility] WOUND Diagnosis Active 2014-02-12 Mem oria INFECTION 10-20 13:06:00 l V WOUND 00:00: Kai NECFAS;CHR INFECTION 00 ONIC V OSTEOMY NECFAS;CHR ONIC OSTEOMY Active 10/20/2013 [facility] Acute Problem Active 2016-04-08 Memor ia osteomyeli 03:42:03 l tis Acute Cornelius (disorder) osteomyeli tis (disorder) Active Problem 04/08/2016 [facility] Congestive Problem Active 2016-04-08 emoria heart 03:42:03 l failure Cornelius (disorder) Congestive heart failure (disorder) Active Problem 04/08/2016 [facility] Hypertensi Problem Active 2016-04-08 M emoria ve 03:42:03 l disorder, Cornelius systemic Hypertensi arterial ve (disorder) disorder,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 (disorder) Active Problem 04/08/2016 [facility] Bronchitis Problem Active 2016-04-08 emoria (disorder) 03:42:03 l Cornelius Bronchitis (disorder) Active Problem 04/08/2016 [facility] Chronic Problem Active 2016-04-08 Ed bandar obstructiv 03:42:03 l e lung Chronic Kai disease obstructiv (disorder) e lung disease (disorder) Active Problem 04/08/2016 [facility] History of Problem Active 2016-04-08 M emoria - 03:42:03 l infectious History Her cook disease of - (context-d infectious ependent disease category) (context-d ependent category) Active Problem 04/08/2016 [facility] History of Problem Active 2016-04-08 emoria amputation 03:42:03 l of lesser History Herm delisa toe of (situation amputation ) of lesser toe (situation ) Active Problem 04/08/2016 [facility] History of Problem Active 2016-04-08 M emoria - 03:42:03 l cardiovasc History Her cook ular of - disease cardiovasc (context-d ular ependent disease category) (context-d ependent category) Active Problem 04/08/2016 [facility] Benign Problem Active 2016-04-08 Memor ia prostatic 03:42:03 l hyperplasi Benign Herm delisa a prostatic (disorder) hyperplasi a (disorder) Active Problem 04/08/2016 [facility] Epistaxis Problem Active 2016-04-08 Me moria (disorder) 03:42:03 l Cornelius Epistaxis (disorder) Active Problem 04/08/2016 [facility] CELLULITIS Diagnosis Active 2014-02-12 Memoria OF FOOT 13:06:00 l Kai CELLULITIS OF FOOT Active [facility] AC Diagnosis Active 2014-02-12 Mem oria OSTEOMYELI 13:06:00 l TIS-UNSPEC AC Raudel n OSTEOMYELI TIS-UNSPEC Active [facility] CHEST PAIN Diagnosis Active 2015-02-15 Memoria NOS 18:21:00 l CHEST Cornelius PAIN NOS Active [facility] GANGRENE, Diagnosis Active 2016-02-12 Memoria NOT 20:08:00 l ELSEWHERE Cornelius CLASSIFIED GANGRENE, NOT ELSEWHERE CLASSIFIED Active [facility] ANEMIA, Diagnosis Active 2016-04-05 Me moria UNSPECIFIE 09:38:00 l D ANEMIA, Kai UNSPECIFIE D Active [facility] History of Past Illness Condition Condition Condition Status Onset Resolution Last Treating Co mments Source Name Details Category Date Date Treatment Clinician Date Discharge Problem 2015-052016-03-17 2016-03-17 Memoria Diagnosis: 0-18 03:02:37 03:02:37 l Acute on 05:00: Kai chronic Discharge 00 renal Diagnosis: failure Acute on chronic renal failure 03/14/2016 03/17/2016 [facility] Discharge Problem 2015-052016-03-17 2016-03-17 Memoria Diagnosis: 0-18 03:02:37 03:02:37 l Anemia 05:00: Cornelius Discharge 00 Diagnosis: Anemia 03/14/2016 03/17/2016 [facility] Discharge Problem 2015-052016-03-17 2016-03-17 Memoria Diagnosis: 0-18 03:02:37 03:02:37 l Post-opera 05:00: Raudel n tive pain Discharge 00 Diagnosis: Post-opera tive pain 03/14/2016 03/17/2016 [facility] Discharge Problem 2015-052016-03-17 2016-03-17 Memoria Diagnosis: 0-18 03:02:37 03:02:37 l Acute 05:00: Kai hypokalemi Discharge 00 a Diagnosis: Acute hypokalemi a 03/14/2016 03/17/2016 [facility] Discharge Problem 2015-02-19 2015-02-19 Memoria Diagnosis: 02-16 07:51:51 07:51:51 l Hyperlipid 14:36: Raudel n emia Discharge 09 Diagnosis: Hyperlipid emia 02/16/2015 02/19/2015 [facility] Discharge Problem 2015-02-19 2015-02-19 Memoria Diagnosis: 02-16 07:51:51 07:51:51 l Hypertensi 14:36: Raudel n on Discharge 00 Diagnosis: Hypertensi on 02/16/2015 02/19/2015 [facility] Discharge Problem 2015-02-19 2015-02-19 Memoria Diagnosis: 02-16 07:51:51 07:51:51 l Angina 14:35: Cornelius pectoris Discharge 54 Diagnosis: Angina pectoris 02/19/2015 [facility] Discharge Problem 2015-02-12 2015-02-12 Memoria Diagnosis: 02-09 09:59:31 09:59:31 l Wrist 05:00: Cornelius sprain Discharge 00 Diagnosis: Wrist sprain 02/09/2015 02/12/2015 [facility] Discharge Problem 2015-01-26 2015-01-26 Memoria Diagnosis: 01-23 02:07:27 02:07:27 l Epileptic 05:00: Cornelius seizure, Discharge 00 generalize Diagnosis: d Epileptic seizure, generalize d 01/23/2015 01/26/2015 [facility] Discharge Problem 2015-01-26 2015-01-26 Memoria Diagnosis: 01-23 02:07:27 02:07:27 l Cerebral 05:00: Cornelius seizure Discharge 00 Diagnosis: Cerebral seizure 01/23/2015 01/26/2015 [facility] Allergies, Adverse Reactions, Alerts Allergy Allergy Status Severity Reaction(s) Onset Inactive Treating Comm ents Source Name Type Date Date Clinician No Known DA Active U 2018-05 [facility]- [place] [facility] 00:[facility]: [facility] 00 are [facility] st Morphine Propensi Active Other (See 2016-[address] ty to Comments) 06-16 [facility] - adverse 00:00: Medical reaction 00 Center s morphine morphine Active [facility] Social History Social Habit Start Date Stop Date Quantity Comments Source Sex Assigned At [facility] Cigarettes smoked 2017-04-16 2017-04-16 [facility] - current (pack per 00:00:00 00:00:00 Medical Center day) - Reported Tobacco use and 2017-04-16 2017-04-[address] [facility] [place] - exposure 00:00:00 00:00:00 [facility] Social History 2013-10-21 2013-10-21 [facility] 05:36:39 05:36:39 Smoking Status Start Date Stop Date Source Current every day smoker 2017-04-16 00:00:00 [facility] Medications Ordered Filled Start Stop Current Ordering Indication Dosage Frequency Signature Comments Components Source Medication Medication Date Date Medication? Clinician (SIG) Name Name lovastatin Yes 20mg QD Take [address] (MEVACOR) 5-20 by mouth [facility] - 20 MG 20:42: nightly. Medical tablet 31 [place] aspirin/shawn Yes 2{packe Take [address] icylamide/c 5-20 t} packets by Evelyn magana ( 20:42: mouth Medic al HEADACHE 31 daily as Center POWDER needed ORAL) (For headache and pain relief). VENTOLIN Yes 1{puff} Inhale [address] HFA 90 4-01 puff by [facility] - mcg/actuati 00:00: mouth via M edeliecer on inhaler 00 inhaler 3 Cent er (three) times daily as needed for Shortness of Breath. lisinopril Yes 10mg QD Take [address] (PRINIVIL,Z 4-01 by mouth [facility] - ESTRIL) 10 00:00: daily. Medic al MG tablet 00 [place] amLODIPine Yes 10mg QD Take [address] (NORVASC) 4-01 by mouth [facility] - 10 MG 00:00: daily. 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, Duration: 30, 1,000 ml EPINEPHrine 2015-05 Yes Notes: Memoria 1-09 MEDICATION l 13:22: WASTE Product Size: 1 mg Product Wasted: ___ mg Solu-CORTEF 2015-05 Yes Notes: Ed bandar - (Same as: l 13:22: Solu-JOHN Kai 00 F) Benadryl 2015-05 Yes Notes: Memoria 06-05 (Same as: l 13:22: Benadryl) Cornelius Sodium 2015-05 Yes IV, 0 Memoria Chloride 1-09 ml/hr, l 0.9% IV 13:21: PRN, PRN Raudel n 00 Blood Transfusio n, Start date: 04/05/16 7:21:00 HEALTH AND SAFETY TECHNICIAN, Duration: 30, 250 ml heparin 2015-05 Yes Notes: Memoria flush 06-05 (Same as: l 13:21: Heparin Kai 00 Lock Flush) BD Normal 2015-05 Yes Notes: Memori a Saline 06-05 (Same as: l Flush 13:21: BD Cornelius 00 Posiflush) Benadryl 2015-05 Yes Notes: Memoria 06-05 (Same as: l 13:21: Benadryl) Tylenol 2015-05 Yes Notes: Do Memor ia 06-05 not exceed l 13:20: 4 gm/day. Kai 00 (Same as: Tylenol) Acetaminoph 2015-05 No Notes: Ed bandar en 325 MG / 0-18 (Same as: l Hydrocodone 11:34: [place] Denita nn Bitartrate 00 325/5) Do 5 MG Oral not exceed Tablet 4gm/day of [[place] acetaminop 5/325] hen. Acetaminoph 2015-05 No 1 [...] 0-18 500 ml/hr, l 0.154 04:18: Infuse Cornelius MEQ/ML 00 Over: 1 Injectable hr, Route: [...] bandar 02-16 (Same As: l 20:00: Rocephin). Cornelius 00 Use with 100 mL NS and [...] 02-16 cap, PO, l capsule 12:57: After Cornelius 00 Dinner, 0 Refill(s) fluconazole Yes 200 mg = 2 Memoria 100 mg oral 22 tab, PO, l tablet 12:57: [id number], 0 Denita nn 00 Refill(s) pantoprazol Yes 40 mg = 1 M emoria e 40 mg -22 tab, PO, l oral 12:57: Before Cornelius enteric 00 Breakfast, coated 0 tablet Refill(s) Acetaminoph Yes 1 tab, PO, Memoria en 325 MG / 9-22 Q4H, PRN l Hydrocodone 12:57: Pain Score Cornelius Bitartrate 00 1-3, 0 5 MG Oral Refill(s) Tablet cefTRIAXone No Notes: Ed bandar + sodium 20 (Same As: l chloride 23:00: Rocephin). Her cook 0.9% INJ 00 Use with 100 mL 100 mL NS and infuse over 30 min MEDICATION WASTE Product Size: 2000 mg Product Wasted: ___ mg Flomax No Notes: Memoria 02-12 (Same As: l 22:00: Flomax) "Do Not Crush" vancomycin No 2000 mg: Me moria + sodium 02-12 infuse [...] Labetalol No 10 mg, 2 Ed bandar -17 mL, Route: l 14:59: IVP, Drug form: [...] Same as: l 13:37: Dilaudid vancomycin No 2001 mg: Me moria 02-10 infuse l 11:00: over 2.5 hours metoprolol No Notes: Memor ia 9-15 (Same as: l 14:00: Toprol XL) Kai 00 May split tab, but do not crush. Alprazolam No Notes: Memor ia 1 MG Oral 15 With food l Tablet 13:19: or milk Cornelius [Xanax] 00 (Same as: Xanax) vancomycin No 2001 mg: Me moria 9-15 infuse l 10:00: over 2.5 Kai 00 hours Anoro No Anoro Memoria 62.5mcg/25 -15 62.5mcg/25 l mcg 01:00: mcg, 1 Kai [...] 03/10/16 14:50:00 CDT Dilaudid No Notes: Memoria -14 Same as: l 18:01: Dilaudid Kai 00 Sodium No 500 mL, Memoria Chloride 02-08 500 ml/hr, l 0.154 17:59: Infuse Cornelius MEQ/ML 00 Over: 1 Injectable hr, Route: Solution IV, 500, Drug form: INJ, ONCE, Priority: STAT, Dosing Weight 96.023 kg, Start date: 02/09/16 12:59:00 CDT, Duration: 1 doses or times, Stop date: 02/09/16 12:59:00 CDT chlorhexidi No Notes: Ed bandar ne 9- (Same As: l gluconate 14:00: Hibiclens) He rmann 40 MG/ML 00 Medicated Liquid Soap pantoprazol No Notes: Ed bandar e - Tablet l 14:00: should not Kai 00 [...] potassium No Notes: Memori a phosphate + - (Same as: l sodium 01:04: K Cornelius chloride 00 Phosphate. 0.9% 500 ml ) 1 mMol INJ 500 mL phoshate has 1.47 mEq potassium Infuse over 4 hours potassium No Notes: Memori a phosphate + -14 (Same as: l sodium 01:04: K Cornelius chloride 00 Phosphate. 0.9% INJ ) 1 mMol 250 mL phoshate has 1.47 mEq potassium Infuse over 4 hours Magnesium No Notes: Memori a Oxide -14 (Same as: l 01:04: Mag-Ox Kai 00 400) Magnesium oxide 281vb=355q g elemental magnesium Dose=____m g magnesium oxide (___mg elemental magnesium) Magnesium No Notes: Memori a Sulfate 02-08 WASTE: F/P l 01:04: - Sink; E Kai 00 - Municipal Trash Bin potassium No Notes: Memori a chloride 14 (Same as: l 01:04: Potassium Cornelius 00 Chloride) sodium 2016-0 No 15 mmol, 5 Memor ia phosphate [...] WASTE: F/P l 01:04: - Sink; E Cornelius 00 - Municipal Trash Bin Albuterol No Notes: SEE Me moria 0.83 MG/ML 14 RT l Inhalant 01:04: DOCUMENTAT Her cook Solution 00 ION (Same as: Proventil) Dextrose No 25 gm, 50 Ed bandar 50% Syringe 9-14 mL, Route: l 01:04: IVP, Drug Kai 00 Form: INJ, Dosing Weight 96.023, kg, PRN, PRN Blood Glucose Results, Start date: 02/08/16 20:04:00 CDT, Duration: 30 day, Stop date: 03/09/16 20:03:00 CDT Docusate No Notes: Memoria 02-08 (Same as: l 01:04: Colace) Cornelius 00 (Do Not Crush) Glucagon No 1 mg, Memoria 02-08 Route: IM, l 01:04: Drug form: Kai 00 PDR/INJ, PRN, Dosing Weight 96.023, kg, PRN Blood Glucose Results, Start date: 02/08/16 20:04:00 CDT, Duration: 30 day, Stop date: 03/09/16 20:03:00 CDT Acetaminoph No Notes: Ed bandar en 325 MG / 02-08 (Same as: l Hydrocodone 01:04: [place] Denita nn Bitartrate 00 325/5) Do 5 MG Oral not exceed Tablet 4gm/day of acetaminop hen. Acetaminoph No Notes: Do M emoria en 02-08 not exceed l 01:04: 4 gm/day. Kai (Same as: Tylenol) D5W 1/2NS + No Notes: Ed bandar KCL 20mEq/L 02-08 PREMIX IV l 1000ml 01:04: - Do Not Cornelius (Premix) 00 Alter 1,000 mL WASTE: F/P [...] moria n-tazobacta 02-07 l m (ANES) 13:25: Kai 00 famotidine No Route: IV, M emoria (ANES) 02-07 Drug form: l 13:25: INJ, ONCE, Stop date: 02/08/16 8:25:00 CDT Rifadin IV No Notes: Memor ia 02-07 Child:10-2 l 12:00: 0mg/kg ,<= Kai 00 600mg/day. Protect from light (Same as: Rifadin) Lidocaine No 5 mg, Memoria Hydrochlori 02-07 Route: l de 10 MG/ML 12:00: INTRADERM, Cornelius Injectable Dosing Solution Weight 98.636, kg, ONCALL, [...] 02-06 Route: PO, l 17:00: Drug form: Cornelius 00 TAB, Q4H, Start date: 02/07/16 12:00:00 [...] Stop date: 03/05/16 11:13:00 CDT vancomycin No 2000 mg: Me moria 02-01 infuse l 20:00: over 2.5 Cornelius 00 hours atorvastati No Notes: Ed bandar n 02-01 (Same as: l 02:00: Lipitor) Vancomycin No 1 ea, Memori a 01-31 Route: l 20:00: MISC, Dosing Weight 97.273, kg, ONCALL, Start date: 02/01/16 15:00:00 CDT, Duration: 1 doses or times, Pharmacy to dose Acetaminoph No Notes: Do M emoria en 325 MG / 01-31 not exceed l Hydrocodone 18:10: 4gm/day of Cornelius Bitartrate 00 acetaminop 10 MG Oral hen. Tablet (Same as: [[place] 10/325] 325/10) Tylenol No Notes: Do Memor ia 01-31 not exceed l 18:02: 4 gm/day. Cornelius 00 (Same as: Tylenol) Vancomycin No 2000 mg: Me moria 01-31 infuse l 18:00: over 2.5 Cornelius 00 hours MEDICATION WASTE Product Size: 1000 [...] ia 01-31 (Same as: l 14:00: Neurontin) 24 HR No Notes: Memoria Metoprolol 01-31 [...] as: l / 13:22: Duoneb) Ipratropium 00 [place] 0.167 MG/ML Inhalant Solution Zofran No Notes: Memoria 01-31 (Same as: l 06:24: Zofran) MEDICATION WASTE Product Size: 4 mg Product Wasted: ___ mg Dilaudid No Notes: Memoria 01-31 Same as: l 06:23: Dilaudid Acetaminoph No 1 tab, PO, Memoria en 300 MG / 01-31 BID, PRN l Codeine 04:53: pain, # 28 Herm delisa Phosphate 00 tab, 0 30 MG Oral Refill(s) Tablet lisinopril Yes 10 mg = 1 Me moria 10 mg oral 01-31 tab, PO, l tablet 04:53: Daily, # Cornelius 00 30 tab, 0 Refill(s) metoprolol Yes 100 mg = 1 M emoria tartrate 01-31 tab, PO, l 100 mg oral 04:53: BID, # 60 H ermann tablet 00 tab, 0 Refill(s) Centrum 20160 Yes 1 tab, PO, Ed bandar Adults oral 01-31 Daily, 0 l tablet 04:53: Refill(s) Raudel n 00 doxazosin 1 Yes 1 mg = 1 Me moria mg oral 01-31 tab, PO, l tablet 04:53: Daily, # Cornelius 00 30 tab, 0 Refill(s) atorvastati Yes 40 mg = 1 M emoria n 40 mg 01-31 tab, PO, l oral tablet 04:53: Bedtime, # Cornelius 00 30 tab, 0 Refill(s) Anoro Yes 1 puff, Memoria Ellipta 01-31 INHALER, l 62.5 mcg-25 04:53: Daily, # 1 Kai mcg 00 ea, 3 inhalation Refill(s) powder Alprazolam Yes 2 mg = 1 Mem oria 2 MG Oral 01-31 tab, PO, l Tablet 04:53: BID, PRN Cornelius 00 Anxiety, # 20 tab, 0 Refill(s) Furosemide Yes 20 mg = 1 Me moria 20 MG Oral 01-31 tab, PO, l Tablet 04:53: Daily, # Cornelius 00 30 tab, 0 Refill(s) cilostazol Yes [...] not exceed l Hydrocodone 21:57: 4gm/day of Cornelius Bitartrate 00 acetaminop 10 MG Oral hen. Tablet (Same as: [[place] 10/325] 325/10) Amlodipine Yes 10 mg, PO, [...] 12.5 MG / 14:00: Drug Form: Michael alannahdelisa Lisinopril 00 TAB, 20 MG Oral Dosing Tablet Weight 98.267, kg, Daily, Start date: 02/16/15 9:00:00, Duration: 30 day, Stop date: 03/17/15 9:00:00 Prinivil No Notes: Memoria 02-16 (Same as: l 14:00: Prinivil, Cornelius 00 Zestril) metoprolol No Notes: Memor ia tartrate 02-16 (Same as: l 14:00: Lopressor) Cornelius Microzide No Notes: Memori a 02-16 (Same as: l 14:00: Hydrodiuri Kai 00 l). Give with food. pneumococca No [...] / 02-16 (Same as: l Hydrocodone 04:39: [place] Denita nn Bitartrate 00 325/5) Do 5 MG Oral not exceed Tablet 4gm/day of [[place] acetaminop 5/325] hen. Tessalon No Notes: Memoria Perles 02-16 (Same As: l 01:00: Tessalon Cornelius 00 Perles) "Do Not Crush" Acetaminoph Yes 1 tab, PO, Memoria en 325 MG / 02-16 Q12H, PRN l Hydrocodone 00:48: Pain, # 30 Kai Bitartrate 00 tab, 0 5 MG Oral Refill(s) Tablet [[place] 5/325] Alprazolam Yes 0.25 mg = Me moria 0.25 MG 02-16 1 tab, PO, l Oral Tablet 00:48: BID, PRN He rmann [Xanax] 00 Anxiety, Stress, # 20 tab, 0 Refill(s) metoprolol Yes 25 mg, PO, M emoria tartrate 02-16 BID, 0 l 00:48: Refill(s) Kai 00 NS 1,000 mL No 1,000 mL, [...] not exceed l Hydrocodone 23:03: 4gm/day of Cornelius Bitartrate 00 acetaminop 10 MG Oral hen. Tablet (Same as: [[place] 10/325] 325/10) Albuterol No Notes: Memori a 0.833 MG/ML 02-15 (Same as: l / 20:51: Duoneb) Kai Ipratropium 00 [place] 0.167 MG/ML Inhalant Solution [DuoNeb] Aspirin No Notes: Memoria 02-15 Take with l 20:00: food. tramadol Yes 100 mg = 2 Mem oria hydrochlori 02-09 tab, PO, l de 50 MG 21:05: Q6H, PRN Denita nn Oral Tablet 00 pain, X 3 [Ultram] day, # 20 tab, 0 Refill(s) Tylenol No Notes: Do Memor ia 02-09 not exceed l 20:47: 4 gm/day. Kai (Same as: Tylenol) Sodium No 1,000 mL, Memori a Chloride 01-23 1,000 l 0.154 19:39: ml/hr, Kai MEQ/ML 00 Infuse Injectable Over: 1 Solution hr, Route: IV, 1,000, Drug form: INJ, ONCE, Priority: STAT, Dosing Weight 104.545 kg, Start date: 01/23/15 14:39:00, Duration: 1 doses or times, Stop date: 01/23/15 14:39:00 Saline No Notes: Memoria Flush 0.9% 8-29 preservati l 19:39: ve free. Cornelius 00 Immunizations Ordered Immunization Filled Immunization Date Status Commen ts Source Name Name pneumococcal 2015-02-16 Completed [facility] 23-valent vaccine 13:53:00 Kia Vital Signs Vital Name Observation Time Observation Value Comments Source Systolic (mm Hg) 2016-04-05 18:57:00 Ed rial Cornelius Diastolic (mm Hg) 2016-04-05 18:57:00 Mem orial Kai Respitory Rate 2016-04-05 18:57:00 Memori al Cornelius Heart Rate 2016-04-05 18:57:00 [facility] Kai Systolic (mm Hg) 2016-04-05 18:27:00 Ed rial Cornelius Diastolic (mm Hg) 2016-04-05 18:27:00 Mem orial Cornelius Respitory Rate 2016-04-05 18:27:00 Memori al Cornelius Heart Rate 2016-04-05 18:27:00 [facility] Cornelius Respitory Rate 2016-04-05 17:57:00 Memori al Kai Heart Rate 2016-04-05 17:57:00 [facility] Kai Systolic (mm Hg) 2016-04-05 17:57:00 Ed rial Kai Diastolic (mm Hg) 2016-04-05 17:57:00 Mem orial Cornelius Temperature Oral (F) 2016-04-05 17:35:00 97.7 F [facility] Cornelius Temperature Oral (F) 2016-04-05 17:27:00 97.7 F [facility] Kai Temperature Oral (F) 2016-04-05 16:22:00 98.2 F [facility] Cornelius Weight 2016-04-05 13:20:00 [facility] Kai BMI Calculated 2016-04-05 13:20:00 Memori al Kai Height 2016-04-05 13:20:00 185 cm Memorial Kai Respitory Rate 2016-03-14 11:00:00 Memori al Cornelius Systolic (mm Hg) 2016-03-14 11:00:00 Ed rial Cornelius Diastolic (mm Hg) 2016-03-14 11:00:00 Mem orial Cornelius Systolic (mm Hg) 2016-03-14 10:00:00 Ed rial Kai Diastolic (mm Hg) 2016-03-14 10:00:00 Mem orial Kai Respitory Rate 2016-03-14 10:00:00 Memori al Cornelius Temperature Oral (F) 2016-03-14 09:00:00 98.8 F [facility] Kai Respitory Rate 2016-03-14 09:00:00 Memori al Cornelius Systolic (mm Hg) 2016-03-14 09:00:00 Ed rial Cornelius Diastolic (mm Hg) 2016-03-14 09:00:00 Mem orial Cornelius Temperature Oral (F) 2016-03-14 05:00:00 98.7 F [facility] Kai Heart Rate 2016-03-14 03:48:00 [facility] Cornelius BMI Calculated 2016-03-13 23:42:00 Memori al Cornelius Weight 2016-03-13 23:42:00 [facility] Cornelius Temperature Oral (F) 2016-03-13 23:42:00 98.6 F [facility] Cornelius Height 2016-03-13 23:42:00 185.42 cm Memorial Kai Heart Rate 2016-03-13 23:42:00 [facility] Cornelius Heart Rate 2016-02-18 19:19:00 [facility] Cornelius Temperature Oral (F) 2016-02-18 19:19:00 98.8 F [facility] Kai Respitory Rate 2016-02-18 19:19:00 Memori al Cornelius Systolic (mm Hg) 2016-02-18 19:19:00 Ed rial Cornelius Diastolic (mm Hg) 2016-02-18 19:19:00 Mem orial Cornelius Temperature Oral (F) 2016-02-18 15:28:00 98.3 F [facility] Cornelius Heart Rate 2016-02-18 15:28:00 [facility] Kai Systolic (mm Hg) 2016-02-18 15:28:00 Ed rial Cornelius Diastolic (mm Hg) 2016-02-18 15:28:00 Mem orial Kai Respitory Rate 2016-02-18 15:28:00 Memori al Cornelius Temperature Oral (F) 2016-02-18 12:40:00 98.2 F [facility] Cornelius Heart Rate 2016-02-18 12:40:00 [facility] Kai Systolic (mm Hg) 2016-02-18 12:40:00 Ed rial Cornelius Diastolic (mm Hg) 2016-02-18 12:40:00 Mem orial Kai Respitory Rate 2016-02-18 12:40:00 Memori al Cornelius Weight 2016-02-08 11:10:00 [facility] Kai BMI Calculated 2016-02-08 10:24:00 Memori al Cornelius Weight 2016-02-08 10:24:00 [facility] Cornelius Height 2016-02-08 10:24:00 185.42 cm [facility] Kai Weight 2016-02-01 04:41:00 [facility] Kai BMI Calculated 2016-02-01 04:41:00 Memori al Kai Height 2016-02-01 04:41:00 185.42 cm [facility] Cornelius Height 2016-01-31 19:21:00 185.42 cm [facility] Kai BMI Calculated 2016-01-31 19:21:00 Memori al Aki Respitory Rate 2015-02-16 18:18:00 Memori al Kai Temperature Oral (F) 2015-02-16 17:50:00 98.0 F [facility] Cornelius Respitory Rate 2015-02-16 17:50:00 Memori al Kai Heart Rate 2015-02-16 17:50:00 [facility] Kai Systolic (mm Hg) 2015-02-16 17:50:00 Ed rial Kai Diastolic (mm Hg) 2015-02-16 17:50:00 Mem orial Cornelius Temperature Oral (F) 2015-02-16 12:35:00 98.2 F [facility] Cornelius Heart Rate 2015-02-16 12:35:00 [facility] Cornelius Systolic (mm Hg) 2015-02-16 12:35:00 Ed rial Cornelius Diastolic (mm Hg) 2015-02-16 12:35:00 Mem orial Cornelius Respitory Rate 2015-02-16 12:35:00 Memori al Cornelius Temperature Oral (F) 2015-02-16 09:00:00 97.5 F [facility] Cornelius Systolic (mm Hg) 2015-02-16 09:00:00 Ed rial Kai Diastolic (mm Hg) 2015-02-16 09:00:00 Mem orial Cornelius Heart Rate 2015-02-16 09:00:00 [facility] Cornelius Height 2015-02-16 00:50:00 185.42 cm [facility] Cornelius BMI Calculated 2015-02-16 00:50:00 [facility] Weight 2015-02-16 00:50:00 [facility] Weight 2015-02-15 17:48:00 [facility] BMI Calculated 2015-02-15 17:48:00 [facility] Height 2015-02-15 17:48:00 185.42 cm [facility] Temperature Oral (F) 2015-02-09 21:12:00 98.2 F [facility] Heart Rate 2015-02-09 21:12:00 [facility] Respitory Rate 2015-02-09 21:12:00 [facility] Systolic (mm Hg) 2015-02-09 21:12:00 [facility] Diastolic (mm Hg) 2015-02-09 21:12:00 [facility] BMI Calculated 2015-02-09 20:27:00 [facility] Weight 2015-02-09 20:27:00 [facility] Height 2015-02-09 20:27:00 185.42 cm [facility] Systolic (mm Hg) 2015-02-09 20:27:00 [facility] Diastolic (mm Hg) 2015-02-09 20:27:00 [facility] Heart Rate 2015-02-09 20:27:00 [facility] Respitory Rate 2015-02-09 20:27:00 [facility] Systolic (mm Hg) 2015-01-23 23:00:00 [facility] Diastolic (mm Hg) 2015-01-23 23:00:00 [facility] Systolic (mm Hg) 2015-01-23 22:00:00 [facility] Diastolic (mm Hg) 2015-01-23 22:00:00 [facility] Systolic (mm Hg) 2015-01-23 21:00:00 [facility] Diastolic (mm Hg) 2015-01-23 21:00:00 [facility] Respitory Rate 2015-01-23 19:15:00 [facility] Weight 2015-01-23 18:26:00 [facility] Height 2015-01-23 18:26:00 185.42 cm [facility] BMI Calculated 2015-01-23 18:26:00 [facility] Respitory Rate 2015-01-23 18:26:00 [facility] Heart Rate 2015-01-23 18:26:00 [facility] Temperature Oral (F) 2015-01-23 18:26:00 98.5 F [facility] Procedures Procedure Date / Time Performed Performing Clinician Maynor e Amputation of [facility] toe<sup>1</sup> Blood transfusion [facility] Plan of Care Planned Activity Planned Date [...] s - Test 00:00:00 (procedure) [code = [facility] 74872431] Future Scheduled [address] [facility] - Test 00:00:00 malignant neoplasm Medical C enter of colon (procedure) [code = 619087003] Encounters Start End Encounter Admission Attending Care Care Encounter Source Date/Time Date/Time Type Type Clinicians Facility Department ID 2016-04-05 2016-04-06 [id number] [facility] 14:00:00 05:59:00 ramirez Leiva [address] [facility] 2016-04-05 2016-04-[address] [facility] [id number] 08:00:00 23:59:00 Chuy Botello [facility] 2016-03-13 2016-03-14 [id number] 23:41:00 15:51:00 ramirez Leiva [address] [facility] 2016-03-13 2016-03-[address] [facility] [id number] 18:41:00 10:51:00 Blanche Okeefe 2016-01-31 2016-02-18 Inpatient nullFlavo [facility] [id number] [facility] 18:47:00 20:15:00 ramirez Leiva [address] [facility] 2016-01-31 2016-02-[address] [id number] 13:47:00 15:15:00 Chuy Hawthorneder 2015-02-15 2015-02-16 OBS nullFlavo [facility] [id number] [facility] 17:38:00 21:20:00 Observatio r Kai The 05 l n Patient [facility] 2015-02-15 2015-02-[address] [facility] [id number] 12:38:00 16:20:00 Juan Mckeon 2015-02-09 2015-02-09 EC nullFlavo [facility] [id number] [facility] 20:20:00 21:13:00 Emergency r Cornel[facility] The 04 l [facility] 2015-02-09 2015-02-09 Outpatient Az Warner [facility] [id number] 15:20:00 16:13:00 Sundar 04 2015-01-23 2015-01-23 EC nullFlavo [facility] [id number] [facility] 18:23:00 23:13:00 Emergency r Kai The 03 l [facility] 2015-01-23 2015-01-[address] [facility] [id number] 13:23:00 18:13:00 Joanadodie Anatoliy 03 2013-10-31 2013-11-30 [facility] [id number] [facility] 13:00:00 04:59:00 Recurring r Kai The [address] [facility] 2013-10-31 2013-11-29 Outpatient Rosibel, [id number] 08:00:00 23:59:00 Nabeel Mirza [id number] [id number] 01 Results Test Description Test Time Test Comments Results Result [facility] e Comments CT, EXTREMITY, 2020-01-02 FINAL REPORT PATIENT UPPER, WITHOUT 15:45:00 ID: [id number] CT of CONTRAST, LEFT the left shoulder without contrast History: left [...] from unclear donor sites. Signed: Delisa Bustillo MDReport Verified Date/Time: 01/02/2020 15:45:14 Reading Location: [facility] Radiology Reading Room -COV2/RT-PCR ([facility]) 2020-01-02 13:11:00 Test Item Value Reference Range Interpretation Comme nts SARS-COV2/RT-PCR (test code = 8672100) Negative Not Detected, N egative, See external report for linked test SARS-COV-2 PERFORMING LAB (test code = [facility] 5009732) Negative result for this test determines that [...] 564(g) of the Act.Fact Sheet for Healthcare Providers:https://www.[employer]/sites/default/files/product/documents/Fact_Shee m_IA_Esppazlaj_Lwdx_GRBQ-EvO-6.pdfFact Sheet for Healthcare Patients:https://www.[employer]/sites/default/files/product/ documents/Zeup_Xygrh_Pkmavvbd_Ftjx_FJJM-ErA-4.pdfPerforming Laboratory:[facility], [place] [address]RKA, SHOULDER, COMPLETE (MIN 2 VIEWS), [id number] 10:34:00Reason for exam:->ARM INJURYShould this be performed at the bedside?->YesFINAL REPORT RAD, SHOULDER, COMPLETE (MIN 2 VIEWS), LEFT INDICATION: ARM INJURY COMPARISON: 2 hours prior TECHNIQUE: Single frontal view of the left shoulder. IMPRESSION: Redemonstration of chronic changes in the anteriorly displaced humeral head. Glenoid rim appears preserved.Acromioclavicular joint remains intact. Signed: JR Moreira Robert MDReport Verified Date/Time: 01/02/2020 10:34:05 Reading Location: [facility] Radiology Reading Room PT/APTT 2020-01-02 09:03:00 Test Item Value Reference Range Interpretation [...] INR is2.5-3.5 for patients wiht mechanical heart valves.COMPREHENSIVE METABOLIC PANEL 2020-01-02 08:46:00 Test Item Value Reference Range [...] S NOT APPLICABLE FOR DIALYSIS PATIEN TS. 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 Owner ID - EDASICBC W/PLT COUNT & AUTO [id number] 08:30:00 Test Item Value Reference Range Interpretation [...] 2801) RAD, SHOULDER, COMPLETE (MIN 2 VIEWS), [id number] 07:45:00Reason for exam:- >ARM INJURYFINAL REPORT RAD, [...] MDReport Verified Date/Time: 01/02/2020 07:45:57 Reading Location: [facility] Radiology Reading Room Electronic ally signed by: RENEE MOREIRA on 01/02/2020 07:45 AMBLOOD CULTURE 2018-10-18 02:00:00 Test Item Value Reference Range Interpretation Comments CULTURE (BEAKER) (test No growth in 5 days code = 1095) BLOOD [id number] 20:01:00 Test Item Value Reference Range Interpretation Comments CULTURE (BEAKER) (test No growth in 5 days code = 1095) EEG AWAKE AND [id number] 14:49:00Reason for exam:->seizuresDate(s) of EE10/14/18DATE OF REPORT: 10/14/18ACC: [id number] Number: [id number] time: 13:36Stop time: 13:57ICD-10: R56.9 Unspecified ConvulsionsCPT Code: 86988 EEG: awake and drowsy <40 min HISTORY: [...] Zabala MDNeurophysiology Fellow Anjali Floyd MDNeurophysiology/Epilepsy Attending [facility] METABOLIC [id number] 07:41:00 Test Item Value Reference Range Interpretation [...] PATIEN TS. CBC W/PLT COUNT & AUTO [id number] 05:30:00 Test Item Value Reference Range Interpretation [...] (test code = 2801) VITAMIN B12 AND [id number] 19:46:00 Test Item Value Reference Range Interpretation Comments VITAMIN B12 (BEAKER) (test code = 683 pg/mL 213-816 774) FOLATE (BEAKER) (test code = 362) > ng/mL >=7.0 [id number] 17:59:00 Test Item Value Reference Range Interpretation Comments PHOSPHORUS (BEAKER) (test code = 4.0 mg/dL 2.3-4.7 604) [id number] 17:59:00 Test Item Value Reference Range Interpretation Comments MAGNESIUM (BEAKER) (test code = 2.5 mg/dL 1.6-2.6 627) CT, BRAIN, WITHOUT [id number] 16:58:00FINAL REPORT CT head without contrast. Reason [...] MDReport Verified Date/Time: 10/12/2018 16:58:56 Reading Location: [facility] C013V Neuro Reading Room ALYSIS W/ [id number] 16:25:00 Test Item Value Reference Range Interpretation [...] 516) SOURCE(BEAKER) (test code = Urine, Voided 3366) BLOOD [id number] 10:00:00 Test Item Value Reference Range Interpretation Comments CULTURE (BEAKER) (test No growth in 5 days code = 1095) STOOL CULTURE + SHIGA [id number] 09:59:00 Test Item Value Reference Range Interpretation Comments CULTURE (BEAKER) No Salmonella, Shigella (test code = 1095) or Campylobacter isolated STOOL PATH [id number] 09:01:00 Test Item Value Reference Range Interpretation Comments PATHOGEN EXAM CHARGED (BEAKER) (test Done code = 4731) BASIC METABOLIC [id number] 06:59:00 Test Item Value Reference Range Interpretation [...] APPLICABLE FOR DIALYSIS PATIEN TS. SHIGA TOXIN [id number] 15:48:00 Test Item Value Reference Range Interpretation Comments SHIGA TOXIN 1 (BEAKER) (test Not detected Not detected code = 2177) SHIGA TOXIN 2 (BEAKER) (test Not detected Not detected code = 2179) CLOSTRIDIUM DIFFICILE TOXIN [id number] 15:13:00 Test Item Value Reference Range Interpretation [...] a positive result is not recommended.BLOOD GAS, [id number] 11:03:00 Test Item Value Reference Range Interpretation [...] code = 1819) 21.0 % BASIC METABOLIC [id number] 05:14:00 Test Item Value Reference Range Interpretation [...] NOT APPLICABLE FOR DIALYSIS PATIEN TS. PTH, [id number] 05:03:00 Test Item Value Reference Range Interpretation Comments PARATHYROID HORMONE INTACT 41.8 pg/mL 8.5-72.5 (BEAKER) (test code = 577) BASIC METABOLIC [id number] 07:10:00 Test Item Value Reference Range Interpretation [...] APPLICABLE FOR DIALYSIS PATIEN TS. SODIUM, RANDOM [id number] 06:58:00 Test Item Value Reference Range Interpretation Comments SODIUM URINE (BEAKER) (test code = 65 meq/L 243) Reference Range: No NormalsPROTHROMBIN TIME/[id number] 06:47:00 Test Item Value Reference Range Interpretation Comments PROTIME (BEAKER) (test code = 14.5 seconds 11.7-14.7 759) INR (BEAKER) (test code = 370) 1.1 <=5.9 RECOMMENDED COUMADIN/WARFARIN INR THERAPY RANGESSTANDARD DOSE: 2.0 - 3.0 Includes: PROPHYLAXIS forvenous thrombosis, systemic embolization; TREATMENT for venous thrombosis and/or pulmonary embolus.HIGH RISK: Target INR is 2.5-3.5 for patients with mechanical heart valves.RAPID DRUG SCREEN, [id number] 15:43:00 Test Item Value Reference Range Interpretation [...] situations. Chain of custody not maintained. Some nfej-yvf-zerlusm medications, as well as adulterants, may cause inaccurate results. Clinical correlation should be applied. A more comprehensive drug screen or confirmation of a detected drug may be performed upon request. URINE [id number] 14:33:00 Test Item Value Reference Range Interpretation Comments CULTURE (BEAKER) (test code = 1095) No growth BASIC METABOLIC [id number] 08:09:00 Test Item Value Reference Range Interpretation [...] PATIEN TS. CBC W/PLT COUNT & AUTO [id number] 06:38:00 Test Item Value Reference Range Interpretation [...] (BEAKER) (test code = 2801) U/S, RENAL, [id number] 22:34:00Reason for exam:->acute kidney injury FINAL REPORT [...] Jack MDReport Verified Date/Time: 04/17/2017 22:34:25 Reading Location:[address] Consult Reading Room MR, BRAIN, WITHOUT [id number] 19:18:00Reason for exam:->Stroke evaluationFINAL REPORT MRI Brain [...] Charlene ified Date/Time: 04/17/2017 19:18:34 Reading Location: [facility] Radiology Reading Room EEG MONITORING WITH VIDEO RECORDING EACH 24 [id number] 18:01:00DATE OF TEST: 04/17/2017 DATE OF REPORT 04/17/2017 ACC: [id number] EE Start time: 16:42 Stop time: 18:44 ICD-10: R56.9 CPT Code: 64398 HISTORY: 51 y/o woman with history of [...] Shahnaz Davis MD Neurophysiology Attending ALYSIS W/ [id number] 11:57:00 Test Item Value Reference Range Interpretation [...] 1583) SOURCE(BEAKER) (test code = Urine, Cooper 4459) EOSINOPHIL SMEAR, [id number] 11:56:00 Test Item Value Reference Range Interpretation Comments EOSINOPHIL SMEAR, URINE (BEAKER) No EOS seen No EOS seen (test code = 1851) CREATININE, RANDOM [id number] 11:24:00 Test Item Value Reference Range Interpretation Comments CREATININE URINE (BEAKER) (test 69.7 mg/dL code = 375) Reference Range: No NormalsSODIUM, RANDOM [id number] 11:24:00 Test Item Value Reference Range Interpretation Comments SODIUM URINE (BEAKER) (test code = 58 meq/L 243) Reference Range: No NormalsUREA NITROGEN, RANDOM [id number] 11:24:00 Test Item Value Reference Range Interpretation Comments UREA NITROGEN URINE (BEAKER) (test 172 mg/dL code = 538) Reference Range: No NormalsCREATINE KINASE (CK)2017-04-17 11:06:00 Test Item Value Reference Range Interpretation Comments CREATINE KINASE TOTAL (BEAKER) (test 136 U/L 29-200 code = 380) BASIC METABOLIC [id number] 04:53:00 Test Item Value Reference Range Interpretation [...] PATIEN TS. CBC W/PLT COUNT & AUTO [id number] 04:19:00 Test Item Value Reference Range Interpretation [...] EEG MONITORING WITH VIDEO RECORDING EACH 24 [id number] 17:57:00DATE OF TEST: 04/16/2017DATE OF REPORT 04/16/2017 ACC: [id number]: 17-1987Start time: 08:42 Stop time: 16:42ICD-10: R56.9CPT Code: 22283UMMBLLV: 51 y/o woman with history of epilepsy [...] report.Phoebe Hassan MDEpilepsy Attending EEG AWAKE/ASLEEP AND [id number] 13:27:00Reason for exam:->status epilepticusDATE OF TEST: 04/16/2017DATE OF REPORT 04/16/2017 ACC: [id number] EEStart time: 08:21 Stop time: 08:42ICD-10: R56.9CPT Code: 98322NHJAGFY: 51 y/o woman with history of epilepsy [...] this report.Phoebe Hassan MDEpilepsy Attending HEPATIC FUNCTION [id number] 12:59:00 Test Item Value Reference Range Interpretation [...] 347) hemolyzed RAD, CHEST, 1 VIEW, NON [id number] 09:16:00Reason for exam:- >intubatedShould this be performed [...] should be excluded clinically. Signed: Rogerio Doe MDReport Verified Date/Time: 04/16/2017 09:16:32 Reading Location: [facility] Radiology Reading Room VITAMIN [id number] 07:31:00 Test Item Value Reference Range Interpretation Comments VITAMIN B12 (BEAKER) (test code = 450 pg/mL 213816 774) FOLATE, [id number] 07:31:00 Test Item Value Reference Range Interpretation Comments FOLATE (BEAKER) (test code = 362) 8.0 ng/mL >=7.0 URINALYSIS W/ [id number] 07:09:00 Test Item Value Reference Range Interpretation [...] = 514) SOURCE(BEAKER) (test code = 2795) [id number] 05:59:00 Test Item Value Reference Range Interpretation Comments MAGNESIUM (BEAKER) 3.0 mg/dL 1.6-2.6 H Specimen moderately (test code = 627) hemolyzed [id number] 05:59:00 Test Item Value Reference Range Interpretation Comments PHOSPHORUS (BEAKER) 3.0 mg/dL 2.3-4.7 Specimen moderately (test code = 604) hemolyzed BASIC METABOLIC [id number] 05:59:00 Test Item Value Reference Range Interpretation [...] NOT APPLICABLE FOR DIALYSIS PATIEN TS. PROTHROMBIN [id number] 05:33:00 Test Item Value Reference Range Interpretation Comments PROTIME (BEAKER) (test code = 15.7 seconds 11.7-14.7 H 759) INR (BEAKER) (test code = 370) 1.3 <=5.9 RECOMMENDED COUMADIN/WARFARIN INR THERAPY RANGESSTANDARD DOSE: 2.0 - 3.0 Includes: PROPHYLAXIS forvenous thrombosis, systemic embolization; TREATMENT for venous thrombosis and/or pulmonary embolus.HIGH RISK: Target INR is 2.5-3.5 for patients with mechanical heart valves.BLOOD GAS, [id number] 05:31:00 Test Item Value Reference Range Interpretation [...] 60.0 % CBC W/PLT COUNT & AUTO [id number] 05:08:00 Test Item Value Reference Range Interpretation [...] (BEAKER) (test code = 2801) BLOOD BANK [id number] 17:22:00Product available (04/04/16 11:22 AM) [facility] HermannBLOOD BANK [id number] 17:20:00Negative (04/04/16 11:20 AM) [facility] [id number] 07:08:001[facility]annURINE AND [id number] 07:08:003[facility]UR[facility] AND [id number] 07:08:00 Negative (03/14/16 2:08 AM)[facility] [id number] 07:08:005.0 [facility] [id number] 07:08:001.009[facility] AND [id number] 07:08:00Clear (03/14/16 2:08 AM)[facility] STOOL 2016-03-14 07:08:00Yellow *NA*(03/14/16 2:08 AM)[facility] STOOL 2016-03-14 07:08:00Negative (03/14/16 2:08 AM)[facility] STOOL 2016-03-14 07:08:00Negative (03/14/16 2:08 AM)[facility] STOOL 2016-03-14 07:08:00Negative *NA*(03/14/16 2:08 AM)[facility] HermannCHEM PANEL 2016-03-14 05:40:000.8[facility] HermannBLOOD BANK [id number] 02:07:00 Negative (03/13/16 9:07 PM)[facility] HermannCHEM [id number] 02:07:0043 [facility] HermannCHEM [id number] 02:07:0021[facility] HermannCHEM PANEL 2016-03-14 02:07:001.79[facility] HermannCHEM [id number] 02:07:0095[facility] HermannCHEM [id number] 02:07:000.3[facility] HermannCHEM [id number] 02:07:0039[facility] HermannCHEM [id number] 02:07:0059[facility] HermannCHEM [id number] 02:07:18327Ctofsecn HermannCHEM XXTGG6225-22-03 02:07:007.8 [facility] HermannCHEM [id number] 02:07:002.5[facility] HermannCHEM PANEL 2016-03-14 02:07:74323Csboapcx HermannCHEM TSINJ6889-73-16 02:07:85966Ovyllpev HermannCHEM OQSDK1010-29-43 02:07:0021[facility] HermannCHEM AERKN5759-72-52 02:07:0010.1[facility] HermannCHEM TDCEA4606-18-68 02:07:003.3[facility] HermannCHEM TCTYK9645-18-10 02:07:000.5[facility] HermannCHEM PGMXO0190-95-34 02:07:005.3 [facility] HermannCHEM JCGRO2609-23-90 02:07:0012[facility] HermannCHEM PANEL 2016-03-14 02:07:0015.3[facility]orial ZscucuhFKCSCBTLZF0172-44-64 02:07:007.4[facility]orial QprgxdpXRBUTNEAXP5787-52-06 02:07:007.3[facility]orial JzkechdGUFHQGJKXO5598-88-30 02:07:0088.5Memorial KjozropNRZKZUOLNY5295-63-48 02:07:003.00[facility] WIOPZBNKCX7230-26-91 02:07:0026.5[facility]orial GzhhnlzGMSKEBDFLS6432-69-37 02:07:00 8.8Memorial QpcwdkpTOUXUNVSVI0685-56-36 02:07:0033.1[facility] HermannHEMATOLOGY 2016-03-14 02:07:00 Test Item Value Reference Range Interpretation Comments MCH (test code = MCH) 29.3 pg 27.0-31.0 [facility] UjdsenxJRJGCGSWNM6399-79-50 02:07:34391Rmrzjuuu HermannHEMATOLOGY 2016-03-14 02:07:0015.5[facility] CeeliztIMZDFTTJDJ6725-25-54 02:07:000.1[facility] BvhjymsTFQFHZAULN1071-82-42 02:07:0014.3[facility] GkplqgsFUAMYMIGMX2185-55-94 02:07:001.9[facility] CkzvshoEITLOVVTVL6169-23-48 02:07:0077.1[facility] JZFHAAQMPA4278-40-05 02:07:005.3[facility] DdefsfcWCGUTIOBOS2454-34-92 02:07:001.4 Memorial MbxohzhRUWNHXAVTY2369-83-33 02:07:005.6[facility] HermannHEMATOLOGY 2016-03-14 02:07:001.0[facility] LwlpacpCKVRASXHSV0626-05-27 02:07:000.4[facility] SsjguxyZAHZITAOCK7138-00-75 02:07:000.1[facility] HermannANEMIA XVVNR9062-96-66 09:04:57647Hzhybjmw HermannANEMIA YMHWC1597-11-28 09:04:64623Aaxxavbk Kai ANEMIA KCOOQ4601-56-29 09:04:0022[facility] HermannANEMIA UTOVA2343-84-04 09:04:00 11[facility] HermannCHEM OIHGX9520-71-99 15:50:0057[facility] HermannCHEM PANEL 2016-02-15 15:50:0014.7[facility] HermannCHEM MLWYA4362-63-66 15:50:008.7[facility] HermannCHEM IGRZY9776-65-93 15:50:0024[facility] HermannCHEM BMFNH2957-73-84 15:50:0099[facility] HermannCHEM EQNWH3205-62-10 15:50:003.7[facility] HermannCHEM WDNUX4106-73-58 15:50:0016[facility] HermannCHEM YAJRZ9014-26-78 15:50:07173 [facility] HermannCHEM TJTSD2411-22-09 15:50:14980Nehqmkou HermannCHEM PANEL 2016-02-15 15:50:001.42[facility] HermannCHEM BKWUU0925-69-30 09:45:0051[facility] HermannCHEM SWJOB9927-57-59 09:45:000.8[facility] HermannCHEM OQTIB3623-09-58 09:45:0025[facility] HermannCHEM QQUSV0819-73-76 09:45:0015[facility] HermannCHEM ZOCHL8409-32-88 09:45:0062[facility] HermannCHEM ILMUO1165-05-12 09:45:004.8 [facility] HermannCHEM RDMVI1651-12-74 09:45:000.5[facility] HermannCHEM PANEL 2016-02-14 09:45:009.0[facility] HermannCHEM PTREM1767-90-56 09:45:12714Ghyrtxpy HermannCHEM ONWMD5299-15-57 09:45:0024[facility] HermannCHEM JZGWB8154-60-88 09:45:41134Lhgydaal HermannCHEM IISTU1234-17-04 09:45:0017[facility] HermannCHEM LOTXB4694-20-23 09:45:004.1[facility] HermannCHEM MZLIK7573-71-08 09:45:0014.1 [facility] HermannCHEM NOXPF7681-59-86 09:45:002.3[facility] HermannCHEM PANEL 2016-02-14 09:45:007.1[facility] HermannCHEM ADBOI2904-91-38 09:45:001.55[facility] HermannCHEM NECYB0585-47-04 09:45:21852Bteawdjt HermannCHEM DHWEB2698-32-47 09:45:0011[facility] DvewblmDYOQYCHXJV3183-25-36 09:45:007.7[facility] QVJQGRJIKK7664-47-76 09:45:0025.4[facility] OrtqnqzCZCLKWDYMM6986-89-63 09:45:00 Test Item Value Reference Range Interpretation Comments MCH (test code = MCH) 32.7 pg 27.0-31.0 [facility] BadruhxVFNDNEFGNG4196-24-82 09:45:0096.6[facility] HermannHEMATOLOGY 2016-02-14 09:45:27420Ampjezvk SdtnwsbPFHNMFCLDR7327-89-60 09:45:0014.7[facility] QbkakciDNOSTLSTRO1250-23-56 09:45:0033.8[facility] GfzppbgBLFTADTWCR3908-49-33 09:45:008.4[facility] YfbscdqEPXARXWQTI5648-00-67 09:45:008.6[facility] SPDXUDJPNY4040-70-73 09:45:002.63[facility] TshcsmkJQGKYZORHR8108-17-57 09:45:00 1.5[facility] NyqwnubEARDROKUJF9101-67-51 09:45:000.2[facility] HermannHEMATOLOGY 2016-02-14 09:45:000.8[facility] VvyisivJVMLJCGOEI8678-31-93 09:45:000.1[facility] JcxfioxIVMWNORVHN4910-28-34 09:45:009.9[facility] RknhqzmJOIGAYHVXC7110-04-37 09:45:0017.2[facility] KvpbttqORIAYDSZYI8832-71-17 09:45:0069.8[facility] HPICCSGZIV9477-58-11 09:45:002.2[facility] BuredmhUJBBPLWGQB4602-92-24 09:45:005.9 Memorial LqjqbkrESQXZICEZY5480-08-20 09:45:000.9[facility] HermannTOXICOLOGY 2016-02-14 09:45:0014.8[facility] HermannCHEM RQTVP0346-76-41 09:54:006.3[facility] HermannCHEM OSGPU7763-40-83 09:54:000.7[facility] HermannCHEM WYPXQ6832-01-48 09:54:0012[facility] HermannCHEM FZJFD3003-10-81 09:54:003.8[facility] HermannCHEM FGFGV9476-90-50 09:54:0012[facility] HermannCHEM GMUVH2100-39-47 09:54:0061 [facility] HermannCHEM AGYOI5846-95-44 09:54:002.5[facility] HermannCHEM PANEL 2016-02-13 09:54:0026[facility] HermannCHEM OFNST4793-68-09 09:54:000.4[facility]annCHE[facility] YGBNE2479-92-75 09:54:0013.5[facility]annCHE[facility] JKITE1771-82-58 09:54:0057[facility]annCHE[facility] LMTUL8316-18-10 09:54:0027[facility]annCHE[facility] ZMCQX7853-77-89 09:54:008.7[facility]annCHEM ELFOZ8887-25-69 09:54:80226 [facility]annCHE[facility] OPOJS1981-49-82 09:54:004.5[facility]annCHEM PANEL 2016-02-13 09:54:001.42[facility]annCHEM VQLDB1739-06-19 09:54:77296Xowtwobk HermannCHEM APSYA3846-45-12 09:54:19089Iftvhkbg HermannCHEM ZXIYH0992-64-52 09:54:0017[facility] KlgwnpkPZQLHPTDXU5331-42-57 09:54:009.3[facility]annCHEM FHZQP7291-09-69 17:04:004.9[facility]annCHEM LKAGX8971-65-29 17:04:001.8 [facility] RdznpfwYDEKRBOIMS0693-07-25 17:04:0070.5[facility]annHEMATOLOGY 2016-02-12 17:04:0018.0[facility] XfawtwwKOOOIJFIHL8723-51-73 17:04:009.7[facility] MgswoenENLVUFJSFV2056-42-26 17:04:006.4[facility] BtihdhdQWGVSRCMQZ7936-36-80 17:04:001.6[facility] GqmobzyVXZYDYTQVC6746-75-20 17:04:000.5[facility] ETTYQYLWWM2694-22-99 17:04:001.3[facility] VmdcfpkQGAPEZECSW3565-90-73 17:04:000.9 [facility] IgmvrupWOPBFGIZFU1316-70-15 17:04:000.1[facility]annHEMATOLOGY 2016-02-12 17:04:33979Fgshrjnf KdqbexxAZGLBUFCVV8703-37-45 17:04:006.9[facility] TzmsnzpCDQXXIKQWM9379-92-82 17:04:0033.9[facility] FhdcavjDXRZNSNEAT9698-93-02 17:04:0015.1[facility] WtgzqjaXBOOAFJPMR8298-91-76 17:04:002.69[facility] TRCPMTJBKF5684-15-71 17:04:0096.5[facility] WufvbhwBTUQCSUNBL7187-23-24 17:04:00 9.1[facility] WqnppwyULPXACAGFN7824-53-72 17:04:008.8[facility]annHEMATOLOGY 2016-02-12 17:04:0026.0[facility] SpaxautYPUWNGEXMH1061-35-20 17:04:00 Test Item Value Reference Range Interpretation Comments MCH (test code = MCH) 32.7 pg 27.0-31.0 [facility] XnazkipCKQUSPGFSR2335-20-64 08:18:007.7[facility]annHEMATOLOGY 2016-02-12 08:18:001.5[facility] XlggsrhBINIXATXPW1849-41-10 08:18:000.2[facility] PvzetrcHAQRDKDYRL0654-55-71 08:18:000.2[facility] UcmzduiFPLJOSBBIA5280-44-69 08:18:001.2[facility] CivkjjeRHVCSWIXRV1676-71-46 08:18:0069.4[facility] ULSVRAAFIJ2870-88-10 08:18:0010.5[facility] NeokpfjXDKHRRUNFS4949-35-54 08:18:00 1.6[facility] DakwqynIDHALLFSYS3126-61-19 08:18:001.9[facility] HermannHEMATOLOGY 2016-02-12 08:18:0017.0[facility] VcnqorgCAGLHFNSYH2670-85-66 08:18:0028.9[facility] DhcrmgzKHODTARFGO4253-58-65 08:18:0033.6[facility] QeqkahbYXAXFUJXVY7402-62-26 08:18:0014.6[facility] AnzctegMRWGYXWFMS2653-10-44 08:18:0096.6[facility] YRZUMRBKGJ4729-18-37 08:18:00 Test Item Value Reference Range Interpretation Comments MCH (test code = MCH) 32.4 pg 27.0-31.0 [facility] MvvcnxdXJCGJULEBN4307-58-24 08:18:009.7[facility] HermannHEMATOLOGY 2016-02-12 08:18:0011.1[facility] XfcidoeWKRCWUSENY1678-42-92 08:18:002.99[facility] JjvbptzHHKBWNGNKE1153-42-40 08:18:57700Pfulzvnt TenvwlaVWJLGLPMKC8471-75-19 08:18:007.4[facility] DqoiciiSSRMBVUXEH6924-29-23 09:02:0010.9[facility] TTQDDQPSAJ1412-22-85 08:14:000.1[facility] YlocxjcMQFLVPYOTT3509-10-73 08:14:00 14.1[facility] HvhosnsFGCCAKLVDD4592-87-69 18:46:00>100[facility]annBLOOD BANK YRQJVMI9879-99-23 10:38:00Negative (02/08/16 5:38 AM)[facility]annCHEM YJYYN4581-97-03 10:38:000.11[facility] ODOAV3146-37-28 05:36:00 Negative (02/05/16 12:36 AM)[facility] JDBCC8658-86-28 05:36:001 [facility] EQMSQ3687-84-14 05:36:00Negative (02/05/16 12:36 AM) [facility] AGIRO9254-74-02 05:36:00Negative *NA*(02/05/16 12:36 AM)[facility] LMSVW8276-03-31 05:36:00Negative (02/05/16 12:36 AM) [facility] XGGJJ3537-90-43 05:36:00Clear (02/05/16 12:36 AM) [facility] PHSTI5642-43-07 05:36:006.0[facility] VCSAJ4431-25-75 05:36:00Light Yellow *NA*(02/05/16 12:36 AM)[facility] ETHDN3779-15-63 05:36:001.006[facility] UVYCV9032-97-50 21:31:00Negative (02/01/16 4:31 PM)[facility] CCSUG9592-27-03 21:31:00Negative (02/01/16 4:31 PM)[facility] AKAYT0757-21-87 21:31:00Negative (02/01/16 4:31 PM)[facility] CLFWM7171-07-37 21:31:001[facility] HBWYS7591-70-74 21:31:003[facility] AND KJXHU6452-89-88 21:31:005.5[facility] IRTJF8666-55-48 21:31:00Negative *NA*(02/01/16 4:31 PM)[facility] DPNOG6036-21-64 21:31:00Yellow *NA*(02/01/16 4:31 PM)[facility] BUNGN7131-69-23 21:31:00Clear (02/01/16 4:31 PM)[facility] OQYLK2335-56-33 21:31:00 1.007[facility] KZBH5629-66-52 21:31:0041[facility] CHEM 2016-02-01 21:31:0070.40[facility] IJXK1553-57-50 21:31:0038[facility]annCARDIAC FNXSSIM6297-20-77 20:44:00<0.02[facility] HermannCHEM PANEL 2016-01-31 20:44:000.13[facility]annCHEM WVSZB8935-68-12 20:44:001.7[facility]annCHEM NINDK0594-62-45 20:44:000.4[facility]annCHEM DDFXK9668-31-17 20:44:007.7[facility]annCHEM UKQPV0415-85-61 20:44:0019[facility]annCHEM EKRCP5185-31-63 20:44:0023[facility]annCHEM TXWUO2296-03-03 20:44:0058 [facility]annCHEM BFAJQ1382-02-25 20:44:002.8[facility] HermannCHEM PANEL 2016-01-31 20:44:000.6[facility] HermannCHEM FEIBA8540-99-08 20:44:004.9[facility]annCHEM UIGSZ7028-97-21 20:44:0015[facility] GajjjwkCNERENDSQX5324-27-90 20:44:00 Test Item Value Reference Range Interpretation Comments PTT (test code = PTT) 42.4 s 22.9-35.8 [facility] XsbmocxPDMUGOYZFJ0443-98-40 20:44:00 Test Item Value Reference Range Interpretation Comments PT (test code = PT) 14.6 s 12.0-14.7 [facility] BrhatuvPWTHPMJWVR3094-66-89 20:44:001.11[facility] HermannLIPIDS 2015-02-16 05:00:0077[facility] JqwwhcvHJWRJQ8899-34-32 05:00:0029[facility] LTURDX7262-83-81 05:00:85440Zbnmneng JphznnnUWPJTI8581-59-95 05:00:007.66 [facility] SzpljpjDBWSDC1693-91-26 05:00:12751Mqiapcjc OmoygebIXRJTR9551-35-90 05:00:36722Afitbele HermannCARDIAC TQFEISI4972-18-04 04:23:000.8[facility] CARDIAC JOSUOJI9678-01-47 04:23:000.6[facility] HermannCARDIAC FISEKIE6717-54-80 04:23:00<0.02[facility]annCARDIAC PDOOGZX5678-03-98 04:23:0076[facility]annCARDIAC AMQPJCB9274-14-26 00:27:00<0.02[facility]annCARDIAC ENZYMES 2015-02-16 00:27:0089[facility]annCARDIAC AYLVDTX8525-66-60 00:27:001.0 [facility]annCARDIAC RJMLRQG5965-57-75 00:27:000.9[facility] HermannTHYROID QKDFQ0663-96-52 00:27:002.000[facility]annCARDIAC KIFIJJY6797-03-37 19:22:00 0.8[facility]annCARDIAC GHFMBXT0248-76-07 19:22:00<0.02[facility] CARDIAC IRZDUUB3147-35-44 19:22:80342Ejwvmsjm HermannCARDIAC FJUDKZI4434-93-91 19:22:000.9[facility] HermannCHEM YVCID8316-67-21 19:22:0070[facility]annCHEM TFXID1718-29-42 19:22:0087[facility]annCHEM QRDEW6828-72-45 19:22:0023 [facility]annCHEM KGDEF7911-63-95 19:22:0027[facility]annCHEM PANEL 2015-02-15 19:22:003.4[facility] HermannCHEM EMODH8391-40-69 19:22:007.7[facility] HermannCHEM TIGMV4314-22-96 19:22:000.8[facility] HermannCHEM SMAGC2375-02-30 19:22:004.3[facility] HermannCHEM SXXYV5050-89-84 19:22:006[facility]annCHEM WSUFD4276-27-06 19:22:0011.8[facility] HermannCHEM MIZZG8343-93-09 19:22:000.4 [facility]annCHEM XGFKW3975-74-81 19:22:009.2[facility] HermannCHEM PANEL 2015-02-15 19:22:0025[facility] HermannCHEM OJFTK8847-44-73 19:22:0088[facility]annCHEM IUVFM8560-63-37 19:22:62695Xyzpwevr HermannCHEM IHUFK9394-86-45 19:22:004.8[facility] HermannCHEM ZGLAY0282-15-87 19:22:38618Inpvncci HermannCHEM QKRLS9156-11-21 19:22:001.2[facility] HermannCHEM NJZVV8159-09-28 19:22:007 [facility]annCHEM NEBDM2348-82-79 19:22:002.0[facility] HermannHEMATOLOGY 2015-02-15 19:22:000.4[facility] TklfptuILEKAIEVPS0916-98-97 19:22:000.0[facility] TnftmguTGPKPBTYHQ4015-83-35 19:22:004.6[facility] YbdqejsWTSAJPOSWC9314-35-10 19:22:000.8[facility] XfdssqzHQXSZLSIAE8838-38-95 19:22:0010.3[facility] RNELCKTDRH2801-97-84 19:22:005.0[facility] AfekbhoBGKPODRRSM9846-28-16 19:22:000.4 [facility] MjzajfcUMQPPTBSZX1353-11-19 19:22:0025.7[facility] HermannHEMATOLOGY 2015-02-15 19:22:002.0[facility] WxrjnqdKVPDYEDPJI0853-51-21 19:22:0058.6[facility] BqeewotPYXRLMXNFZ5414-47-40 19:22:001.00[facility] EbtuicdAEVMMKRBUJ3519-06-19 19:22:00 Test Item Value Reference Range Interpretation Comments PT (test code = PT) 13.5 s 12.0-14.7 [facility] AeymnxkMFFZWOYKMQ3492-00-30 19:22:00 Test Item Value Reference Range Interpretation Comments PTT (test code = PTT) 33.7 s 22.9-35.8 [facility] UcmqvkqGOANJCAJTF7447-54-53 19:22:50400Alxyyuic HermannHEMATOLOGY 2015-02-15 19:22:007.8[facility] HwmndywVTTONUOXFH2711-33-94 19:22:00 Test Item Value Reference Range Interpretation Comments MCH (test code = MCH) 33.3 pg 27.0-31.0 [facility] MbowvjlMVZDFCRXIQ8788-00-59 19:22:004.62[facility] HermannHEMATOLOGY 2015-02-15 19:22:0097.4[facility] NmpcnbhPIEFDVJCKH8275-68-53 19:22:0015.4[facility] LxkzwtoLKHYTSUBPZ2411-01-30 19:22:0045.0[facility] JprpvvbAOZWZLXVPM1129-80-52 19:22:0034.2[facility] JvnzbewTKGUDPSKLM1034-06-10 19:22:007.0[facility] ZQXZHQXVTI1537-62-44 19:22:0016.0[facility] HermannDRUG XEUXTX2975-43-35 20:10:00 Negative *NA*(01/23/15 3:10 PM)[facility]annDRUG OVENBC4098-52-95 20:10:00 Negative *NA*(01/23/15 3:10 PM)[facility]annDRUG SOZUIL3307-28-31 20:10:00 Negative *NA*(01/23/15 3:10 PM)[facility]annDR[facility] BKESYS7908-66-79 20:10:00 Negative *NA*(01/23/15 3:10 PM)[facility]annDR[facility] OYOVNF7686-98-39 20:10:00See Note (01/23/15 3:10 PM)[facility]annDR[facility] WIYKNZ0712-83-86 20:10:00Negative *NA*(01/23/15 3:10 PM)[facility]annDR[facility] CGRJPT8576-73-78 20:10:00Positive *ABN*(01/23/15 3:10 PM)[facility]annDR[facility] WGUXSO7191-66-72 20:10:00Negative *NA*(01/23/15 3:10 PM)[facility] MTAQT9835-64-23 20:10:00Negative (01/23/15 3:10 PM)[facility] GFZLM9229-66-37 20:10:00Negative (01/23/15 3:10 PM)[facility] RIOKY9478-67-14 20:10:003[facility] WKZDI6543-64-73 20:10:00<1[facility] STOOL 2015-01-23 20:10:005[facility] HUNNY8582-84-72 20:10:00Yellow *NA*(01/23/15 3:10 PM)[facility] BAOSG7583-76-80 20:10:006.0 [facility] WWIIS9279-34-53 20:10:001.017[facility] FGKWQ4686-84-77 20:10:00Slight *ABN*(01/23/15 3:10 PM)[facility] TPNLP4489-29-77 20:10:00Moderate *ABN*(01/23/15 3:10 PM)[facility] NKEAO0514-10-77 20:10:00Negative *NA*(01/23/15 3:10 PM)[facility]annCARDIAC JDOPCOW0096-41-40 19:55:000.7[facility] HermannCARDIAC CKIYXXD3856-04-92 19:55:00 <0.02[facility] HermannCARDIAC ZIBDYMQ5430-74-43 19:55:32053Iqfwauwl [facility] CARDIAC IZHHASL3226-06-96 19:55:001.2[facility] HermannCHEM XXZMR4208-57-31 19:55:0054[facility] HermannCHEM DOEOP8014-50-43 19:55:001.0[facility] HermannCHEM ZIFGR8910-08-96 19:55:0023[facility] HermannCHEM BQORI3092-32-49 19:55:004.3 [facility] HermannCHEM IBJAZ3204-65-15 19:55:0039[facility] HermannCHEM PANEL 2015-01-23 19:55:008.8[facility] HermannCHEM LTFGO6533-36-11 19:55:009.3[facility] HermannCHEM DHLHF8201-78-30 19:55:0020.5[facility] HermannCHEM SKLYD2865-13-72 19:55:004.5[facility] HermannCHEM QENGR2440-06-65 19:55:0010[facility] HermannCHEM AVGFZ1569-72-89 19:55:000.5[facility] HermannCHEM JTSSH2456-45-08 19:55:0088 [facility]annCHEM YGGHE3785-63-91 19:55:004.5[facility] HermannCHEM PANEL 2015-01-23 19:55:51210Zpduwbfn HermannCHEM VXPFI0536-13-00 19:55:0017[facility] HermannCHEM NHQVK4512-26-15 19:55:39348Tsyggnqr HermannCHEM NZXLM6007-00-71 19:55:87248Pjfdyqmm HermannCHEM KMCAP0670-60-98 19:55:001.5[facility] HermannCHEM QAXOF2418-57-68 19:55:0015[facility] HcbhypfTLJTJTKXZY1720-26-42 19:55:0089.7 [facility] ZorxxowSSDWVRDBYA5615-38-31 19:55:0011.6[facility] HermannHEMATOLOGY 2015-01-23 19:55:000.8[facility] CwkpnaiBXWYMHMHNI3533-09-84 19:55:006.5[facility] SupwdmxOWILNUVWIX3941 19:55:003.2[facility] NazxrkmWQFQMZFOKK3553-06-86 19:55:000.4[facility] CftnsxnLVSUWNXLGR2437-58-00 19:55:000.0[facility] JYDNZHWNQY0136-72-75 19:55:000.1[facility] AijajinACTLLHTMKA8505-62-01 19:55:000.2 [facility] MgpkuklQCWXRKRRLG0843-44-35 19:55:000.4[facility] HermannHEMATOLOGY 2015-01-23 19:55:00 Test Item Value Reference Range Interpretation Comments PT (test code = PT) 14.2 s 12.0-14.7 [facility] SzefomeTNCVJJQHUP6742-36-73 19:55:001.07[facility] HermannHEMATOLOGY 2015-01-23 19:55:00 Test Item Value Reference Range Interpretation Comments PTT (test code = PTT) 31.2 s 22.9-35.8 [facility] OsytgejVIIKMSLCRZ3103-98-54 19:55:008.3[facility] HermannHEMATOLOGY 2015-01-23 19:55:0032.8[facility] RnoldywPZEMRYICWV5307-02-30 19:55:0017.0[facility] EncwaocFIIZKXQIPY2310-82-95 19:55:99233Womuhqkx UxzauzoIIWKWPIIDP4671-95-32 19:55:0051.7[facility] QhkeoimXXZCAWDZMB7068-10-01 19:55:0097.9[facility] LAXYVNDAWH4595-74-71 19:55:00 Test Item Value Reference Range Interpretation Comments MCH (test code = MCH) 32.1 pg 27.0-31.0 [facility] YhwgpcsCXJLWUSHZA8395-34-30 19:55:0017.0[facility] HermannHEMATOLOGY 2015-01-23 19:55:0012.9[facility] AcrxittCXHMSJBJSQ1576-89-57 19:55:005.28[facility] RahjbyvULQNMWGVBV2635-69-62 19:55:00<0.003[facility] HermannTOXICOLOGY 2015-01-23 19:55:00<3[facility] HermannCHEM NYHLP2436-99-98 17:07:0071[facility] HermannCHEM GNUCD4202-86-21 17:07:000.3[facility] HermannCHEM IDVKZ9091-20-11 17:07:0018[facility]annCHEM CUIJL7981-34-41 17:07:0088[facility] HermannCHEM ZKYCK6176-72-96 17:07:0036[facility]annCHEM LMZEF4952-01-39 17:07:004.0 [facility]annCHEM NGYRM1211-63-35 17:07:008.8[facility] HermannCHEM PANEL 2013-11-20 17:07:0022[facility] HermannCHEM JHIKT2630-79-89 17:07:009.5[facility] HermannCHEM XPTYF6304-93-94 17:07:90450Gkvrnikc HermannCHEM ZCQJD7582-79-19 17:07:49123Youpzgps HermannCHEM YXOFK7065-47-53 17:07:004.2[facility] HermannCHEM SKIHS8571-04-24 17:07:001.2[facility]annCHEM WJMOH5587-00-11 17:07:66892 [facility]annCHEM XYOIT2945-98-49 17:07:007[facility] HermannCHEM PANEL 2013-11-20 17:07:004.8[facility] HermannCHEM FGKOR0285-07-88 17:07:000.8[facility] HermannCHEM VTJEY5072-16-69 17:07:006[facility] HermannCHEM OJQGO6763-52-93 17:07:0014.2[facility] HibgtdpDFWQAOITJB1064-98-78 17:07:003.2[facility] LUDJCKJFRR7266-38-86 17:07:0016.7[facility] KshxjvjIOCLEAHRRS0186-19-62 17:07:00 6.2[facility] VhrbrjbEPYADDWOZE6585-32-97 17:07:0073.3[facility] HermannHEMATOLOGY 2013-11-20 17:07:000.6[facility] BduowatGXELFNVIUG7284-79-55 17:07:000.1[facility] NlxxifgMQILWACLXM5162-03-84 17:07:000.3[facility] VfejfoqNYCXCGGWWQ1781-46-38 17:07:000.emorial NwydxyxYWXAAVVZNK2790-20-80 17:07:001.6[facility] FQTOHBZYNG5153-49-80 17:07:006.8[facility] GwepngbDYXWTJIDFR3571-21-41 17:07:64624 [facility] NzljdjcNFQISYHYUI0123-26-34 17:07:007.6[facility]annHEMATOLOGY 2013-11-20 17:07:0033.8[facility] YjsacqaFBNZBWAPHC0443-75-72 17:07:0014.2[facility] MiiuheyUZCNRGTFHS6959-79-49 17:07:00 Test Item Value Reference Range Interpretation Comments MCH (test code = MCH) 33.1 pg 27.0-31.0 [facility] IkuczlyESYWGHKDBS8359-41-71 17:07:0097.9[facility] HermannHEMATOLOGY 2013-11-20 17:07:0014.2[facility] BejmcyzQZJGGUTOUD0583-13-48 17:07:0042.1[facility] GvyhftiGSWYARSKWC8319-69-65 17:07:009.3[facility] MbjbjhuIZWHTWGMVF5383-51-54 17:07:004.30[facility] KtmgtmuGXAZZQTMJF5261-13-80 17:07:007.7[facility] HermannCHEM DGOFA1859-11-61 19:25:0047[facility] HermannCHEM GINKW6569-45-00 19:25:001.7 [facility] HermannCHEM AVLRB3438-16-35 19:25:0014[facility] HermannELECTROLYTES 2013-11-17 19:25:004.3[facility] VcpwlbiOHXAWSMNKO9826-28-87 19:25:0036.8[facility] RqwutknLCFUPMXKJS0009-62-31 19:25:0097.6[facility] DbdckugFHLLYWQVAP2651-94-63 19:25:00 Test Item Value Reference Range Interpretation Comments MCH (test code = MCH) 33.2 pg 27.0-31.0 [facility] ZzktwjwYHEIGWMQGZ4097-15-19 19:25:0012.5[facility] HermannHEMATOLOGY 2013-11-17 19:25:007.7[facility] EfzacpvQREPLMYJCZ6320-21-54 19:25:003.77[facility] TqxkyziDBTCMIBBON5407-60-12 19:25:0014.0[facility] JymnkyfGCGPSDIDAZ4537-80-05 19:25:52600Jkvrgrcp VxqriybFMJVVHFFKD2238-13-44 19:25:007.7[facility] DDYHCDYBLN9943-75-02 19:25:0034.0[facility] UgcjchoTATBNIDYZM1875-00-46 19:25:00 5.7[facility] RmpamsaBIGGVHYOTZ2007-51-68 19:25:004.3[facility] HermannHEMATOLOGY 2013-11-17 19:25:000.0[facility] MntxpynMQMTYULSZR6967-10-93 19:25:000.3[facility] FfavofqBRWCYOICGX1429-35-84 19:25:005.1[facility] UtubhcpBDWBPUJTXJ2791-65-49 19:25:0016.3[facility] WcoufcwUZRSRTMBPR0451-04-26 19:25:001.2[facility] IXAZHVPTMX8616-57-51 19:25:000.3[facility] PcjpmfhVLHEUYSCWA6977-88-12 19:25:000.4 [facility] XtuqyjvGRRQCQPZAN1154-35-37 19:25:0074.0[facility] HermannTOXICOLOGY 2013-11-17 19:25:0024.4[facility] HermannCHEM CRRME3745-05-23 18:20:0054[facility] HermannCHEM KWHTF0473-02-98 18:20:001.5[facility] HermannCHEM FEXRM3988-25-97 18:20:0011[facility] SmzuyqgACCWAXPJCPXA9116-62-17 18:20:004.5[facility] TLKDDEOGCW8147-65-16 18:20:00 Test Item Value Reference Range Interpretation Comments MCH (test code = MCH) 32.7 pg 27.0-31.0 [facility] EkvocceKTFKMISCOA9619-74-92 18:20:0033.6[facility] HermannHEMATOLOGY 2013-11-13 18:20:16987Vkgzwoie PspmbytBBCOMGAWBQ0716-05-76 18:20:0014.0[facility] OhqdcnsMGKLRSLORE1610-63-24 18:20:007.4[facility] UbpgtfeYNHOKZWEPU5928-93-49 18:20:0012.2[facility] FnooewvWNNHTMQIXR5752-80-17 18:20:003.73[facility] NEMFIAJGBD2400-91-24 18:20:0097.6[facility] WexrjglJMNRKEIRBQ1287-25-87 18:20:00 36.4[facility] MtvpuxnXRUGXSTLSR6969-97-12 18:20:009.7[facility] HermannHEMATOLOGY 2013-11-13 18:20:000.1[facility] MlclxpaBSWNCBFMES8204-67-45 18:20:002.0[facility] HtkfjsvSPLLRNRDJK0590-00-20 18:20:000.7[facility] BwmjrjrHCFUPDHPWM2671-30-67 18:20:000.4[facility] YiluhwlELBMKVJUEC6516-18-50 18:20:000.6[facility] HIAVCCFHPZ2607-34-77 18:20:006.6[facility] BqspbwjHMGXTYPHZT9081-21-70 18:20:00 20.5[facility] NdwltwtGTOKACVUBG4480-58-86 18:20:007.3[facility] HermannHEMATOLOGY 2013-11-13 18:20:003.7[facility] YnnhlwtARWSRPTRZX1318-71-41 18:20:0067.9[facility] ChazgciWZKZHHGVWH4227-64-00 18:20:0024.1[facility]
--- NOTE | 2021-01-14 14:06 | RAD REPORT ---
EXAM DESCRIPTION: CT - Head Brain Wo Cont - 01/14/2021 1:53 pm CLINICAL HISTORY: Dizziness COMPARISON: November 2020 TECHNIQUE: Computed axial tomography of the head was obtained. IV contrast was not requested. All CT scans are performed using dose optimization technique as appropriate and may include automated exposure control or mA/KV adjustment according to patient size. FINDINGS: An intracranial bleed is not seen . The ventricles are normal in caliber. No extra-axial fluid collection is noted. Mild to moderate low-density areas within periventricular, deep and subcortical white matter likely r epresent ischemic changes secondary to small vessel disease. Fluid within the sinuses/ mastoids is not seen. IMPRESSION: No acute intracranial abnormality is seen. If patient's symptoms persist MRI of the bra in would be recommended.
[2021-01-14 14:33] LABS: Urine Blood Negative (Negative); Urine Glucose Negative (Negative); Urine Protein 1+ (Negative); Urine pH 5.5 (5.0-7.0)
[2021-01-14 14:47] LABS: Absolute Lymphocytes (CBC) 1.9 K/uL (0.7-4.9); Basophils % 0.9 % (0-1.3); Hematocrit 39.2 % (39.6-49.0); Lymphocytes % 20.7 % (15.3-44.8); MPV 8.3 fL (7.6-11.3); Protime INR 1.1; RBC Red Blood Cell Count 4.14 M/uL (4.33-5.43)
[2021-01-14 14:53] LABS: ALT/SGPT 20 U/L (12-78); AST/SGOT 9 U/L (15-37); Albumin 3.9 g/dL (3.4-5.0); Alkaline Phosphatase 87 U/L (45-117); BUN Blood Urea Nitrogen 40 mg/dL (7-18); Bicarbonate 21 mmol/L (21-32); Bilirubin Direct 0.1 mg/dL (0-0.2); Bilirubin Total 0.3 mg/dL (0.2-1.0); Glucose Level 94 mg/dL (74-106); Magnesium 2.4 mg/dL (1.8-2.4); NT PRO-BNP 77 pg/mL (<125); Potassium 4.2 mmol/L (3.5-5.1); Protein, Total 7.6 g/dL (6.4-8.2); Sodium Level 137 mmol/L (136-145); Troponin (Emerg Dept Use Only) < 0.02 ng/mL (0.0-0.045)
[2021-01-14 15:19] LABS: Barbiturates NEGATIVE (NEGATIVE); Benzodiazepines NEGATIVE (NEGATIVE); Cocaine NEGATIVE (NEGATIVE); METHAMPHETAM NEGATIVE (NEGATIVE); Methadone NEGATIVE (NEGATIVE); Opiates NEGATIVE (NEGATIVE); Phencyclidine NEGATIVE (NEGATIVE); THC Cannibis POSITIVE (NEGATIVE)
[2021-01-14] MEDS ORDERED: KETOROLAC 30 MG/ML INJ ONE (17:47)
[2021-01-14] MEDS ORDERED: ONDANSETRON 4 MG/2 ML VIAL ONE (17:47)
[2021-01-14] MEDS ORDERED: NA CHLORIDE 0.9% 1,000 ML ONE (17:48)
--- NOTE | 2021-01-14 18:24 | EDPHYS ---
Physician Documentation [facility] Name: Karlos Leblanc Age: 55 yrs Sex: Male : 1965 Arrival Date: 01/14/2021 Time: 11:56 Bed 6 Private MD: ED Physician Jordan Austin HPI: 01/14 19:22 This 55 yrs old Male presents to ER via EMS with complaints of General kdr Weakness, Breathing Difficulty. 19:19 Patient presents to the ED the patient presented to triage apparently complaining of kdr generalized weakness and breathing difficulty. The nursing assessment states that the patient felt he had a seizure after hitting his head yesterday. He stated that he was unsure if he had had a seizure. He also affirmed that he had been noncompliant with his medication regimen for his seizures. He also admits to using various substances acquired on the street that may have been mind altering. In general as stated in the nursing notes, he is a very poor historian. He has no focal complaints other than generally being confused and just feeling poorly.. Historical: - Allergies: 13:37 NKDA; kg - Home Meds: 14:34 gabapentin 100 mg Oral cap 2 caps 3 times per day [Active]; Keppra 100 mg/mL Oral soln ap3 [Active]; lisinopril 10 mg Oral tab 1 tab once daily [Active]; Percocet 2.5-325 mg Oral tab [Active]; - PMHx: 13:37 Seizures; Hypertension; kg - PSHx: 13:37 Cardiac Stents; kg - Immunization history:: Adult Immunizations up to date, Client reports receiving the 1st dose of the Covid vaccine, July 2020 Andrei. - Social history:: Smoking status: Patient reports the use of cigarette tobacco products, smokes two packs cigarettes per day. Patient uses street drugs, "Legal" Pt unsure of whats in it. . ROS: 19:20 Constitutional: Negative for fever, chills, and weight loss, Eyes: Negative for injury, kdr pain, redness, and discharge, Neck: Negative for injury, pain, and swelling, Cardiovascular: Negative for chest pain, palpitations, and edema. 19:20 Abdomen/GI: Negative for abdominal pain, nausea, vomiting, diarrhea, and constipation, Back: Negative for injury and pain, : Negative for injury, bleeding, discharge, and swelling, MS/Extremity: Negative for injury and deformity, Skin: Negative for injury, rash, and discoloration, Psych: Negative for depression, anxiety, suicide ideation, homicidal ideation, and hallucinations, Allergy/Immunology: Negative for hives, rash, and allergies, Endocrine: Negative for neck swelling, polydipsia, polyuria, polyphagia, and marked weight changes, Hematologic/Lymphatic: Negative for swollen nodes, abnormal bleeding, and unusual bruising. 19:20 Respiratory: Positive for shortness of breath, on exertion. This is been ongoing for several months and perhaps a little worse in the last few weeks but not acutely changing in character. 19:20 Neuro: Positive for altered mental status, weakness. Exam: 19:20 Constitutional: This is a well developed, well nourished patient who is awake, alert, kdr and in no acute distress. He appears generally disheveled and poorly kept Head/Face: Normocephalic, atraumatic. Eyes: Pupils equal round and reactive to light, extra-ocular motions intact. Lids and lashes normal. Conjunctiva and sclera are non-icteric and not injected. Cornea within normal limits. Periorbital areas with no swelling, redness, or edema. Neck: Trachea midline, no thyromegaly or masses palpated, and no cervical lymphadenopathy. Supple, full range of motion without nuchal rigidity, or vertebral point tenderness. No Meningismus. Chest/axilla: Normal chest wall appearance and motion. Nontender with no deformity. No lesions are appreciated. Cardiovascular: Regular rate and rhythm with a normal S1 and S2. No gallops, murmurs, or rubs. Normal PMI, no JVD. No pulse deficits. Respiratory: Lungs have equal breath sounds bilaterally, clear to auscultation and percussion. No rales, rhonchi or wheezes noted. No increased work of breathing, no retractions or nasal flaring. Abdomen/GI: Soft, non-tender, with normal bowel sounds. No distension or tympany. No guarding or rebound. No evidence of tenderness throughout. Back: No spinal tenderness. No costovertebral tenderness. Full range of motion. Skin: Warm, dry with normal turgor. Normal color with no rashes, no lesions, and no evidence of cellulitis. MS/ Extremity: Pulses equal, no cyanosis. Neurovascular intact. Full, normal range of motion. Neuro: Awake and alert, GCS 15, oriented to person, place, time, and situation. Cranial nerves II-XII grossly intact. Motor strength 5/5 in all extremities. Sensory grossly intact. Cerebellar exam normal. Normal gait. Psych: Awake, alert, with orientation to person, place and time. Behavior, mood, and affect are within normal limits. Vital Signs: 13:32 BP 95 / 59; Pulse 73; Resp 17; Temp 97.3(TE); Pulse Ox 96% on R/A; Weight 68.49 kg (R); kg Height 6 ft. 1 in. (185.42 cm) (R); Pain 8/10; 14:35 BP 106 / 68; ap3 15:14 BP 99 / 62; ap3 17:35 BP 116 / 64; Pulse 68; Pulse Ox 97% on R/A; Pain 7/10; ap3 13:32 Body Mass Index 19.92 (68.49 kg, 185.42 cm) kg MDM: 18:23 Patient medically screened. kdr 19:20 Data reviewed: vital signs, nurses notes, lab test result(s), radiologic studies. kdr Counseling: I had a detailed discussion with the patient and/or guardian regarding: the historical points, exam findings, and any diagnostic results supporting the discharge/admit diagnosis, lab results, radiology results, the need for outpatient follow up. Response to treatment: the patient's symptoms have markedly improved after treatment. Special discussion: I discussed with the patient/guardian in detail that at this point there is no indication for admission to the hospital. It is understood, however, that if the symptoms persist or worsen the patient needs to return immediately for re-evaluation. ED course: Patient was stable in the ED. He was happy with the care provided and the plan for discharge and follow-up. 01/14 13:45 Order name: Basic Metabolic Panel; Complete Time: 16:42 kg 01/14 13:45 Order name: CBC with Diff; Complete Time: 16:42 kg 01/14 13:45 Order name: LFT's; Complete Time: 16:42 kg 01/14 13:45 Order name: Magnesium; Complete Time: 16:42 kg 01/14 13:45 Order name: NT PRO-BNP; Complete Time: 16:42 kg 01/14 13:45 Order name: PT-INR; Complete Time: 16:42 kg 01/14 13:45 Order name: Troponin (emerg Dept Use Only); Complete Time: 16:42 kg 01/14 13:45 Order name: UDS; Complete Time: 16:42 kg 01/14 13:46 Order name: CT Head Brain wo Cont; Complete Time: 14:36 kg 01/14 14:32 Order name: Urine Dipstick-Ancillary; Complete Time: 14:36 EDMS 01/14 13:45 Order name: Labs collected and sent; Complete Time: 14:26 kg 01/14 13:45 Order name: O2 Sat Monitoring; Complete Time: 14:26 kg Administered Medications: 17:34 Drug: NS 0.9% 1000 ml Route: IV; Rate: 1 bolus; Site: right antecubital; ap3 18:45 Follow up: IV Status: Completed infusion; IV Intake: 1000ml ap3 17:34 Drug: Ketorolac 15 mg Route: IVP; Site: right antecubital; ap3 18:45 Follow up: Response: No adverse reaction; Pain is decreased ap3 17:34 Drug: Zofran (Ondansetron) 4 mg Route: IVP; Site: right antecubital; ap3 18:45 Follow up: Response: No adverse reaction ap3 Disposition Summary: 01/14/21 18:23 Discharge Ordered Location: Home kdr Problem: an ongoing problem kdr Symptoms: have improved kdr Condition: Stable kdr Diagnosis - Weakness kdr - Confusion kdr - Dehydration kdr - Renal insufficiency: Improving kdr Followup: kdr - With: Private Physician - When: 2 - 3 days - Reason: If symptoms return, Further diagnostic work-up, Recheck today's complaints, Continuance of care, Re-evaluation by your physician Discharge Instructions: - Discharge Summary Sheet kdr - Dehydration, Adult kdr - Weakness, Cern-eq-Iajl kdr Forms: - Medication Reconciliation Form kdr - Thank You Letter kdr Signatures: Dispatcher [employer] Jordan Donis MD MD kdr Becka Fritz RN RN ap3 Ankita Ji RN RN kg Corrections: (The following items were deleted from the chart) 14:35 14:34 PMHx: diabetes mellitus; ap3 ap3
--- NOTE | 2021-01-14 18:24 | ER ---
Nurse's Notes [facility] Name: Karlos Leblanc Age: 55 yrs Sex: Male : 1965 Arrival Date: 01/14/2021 Time: 11:56 Bed 6 Private MD: Diagnosis: Weakness;Confusion;Dehydration;Renal insufficiency: Improving Presentation: 01/14 13:32 Chief complaint: Patient states: Pt presents with complaints of falling and hitting his kg yesterday and unsure what happened. Pt stated, " I think I had a seizure and hit my head but I dont really know or remember. " Pt stated that he had one a few months ago but doesn't take his medications. Pt stated he did "legal" some kind of drug he bought of the street yesterday and today but isnt sure whats in it. Pt is a very poor historian. Coronavirus screen: Client denies travel out of the [place] in the last 14 days. At this time, unable to obtain information related to travel outside the [place] At this time, the client does not indicate any symptoms associated with coronavirus-19. Ebola Screen: Patient negative for fever greater than or equal to 101.5 degrees Fahrenheit, and additional compatible Ebola Virus Disease symptoms Patient denies exposure to infectious person. Patient denies travel to an Ebola-affected area in the 21 days before illness onset. Initial Sepsis Screen: Does the patient meet any 2 criteria? No. Patient's initial sepsis screen is negative. Does the patient have a suspected source of infection? No. Patient's initial sepsis screen is negative. Risk Assessment: Do you want to hurt yourself or someone else? Patient reports no desire to harm self or others. Onset of symptoms was January 13, 2021. 13:32 Method Of Arrival: EMS: [facility] kg 13:32 Acuity: KENIA 3 kg Triage Assessment: 13:37 General: Appears in no apparent distress. Behavior is calm, cooperative, appropriate kg for age, quiet. Pain: Complains of pain in Generalized Pain currently is 8 out of 10 on a pain scale. Neuro: Reports Pt stated, "I'm seeing things that I haven't seen in a long time. I seeing things that have happened in my past." "I haven't been right the past few days. ". Respiratory: Reports shortness of breath at rest on exertion cough that is productive, Congestions Onset: The symptoms/episode began/occurred gradually, Historical: - Allergies: 13:37 NKDA; kg - Home Meds: 14:34 gabapentin 100 mg Oral cap 2 caps 3 times per day [Active]; Keppra 100 mg/mL Oral soln ap3 [Active]; lisinopril 10 mg Oral tab 1 tab once daily [Active]; Percocet 2.5-325 mg Oral tab [Active]; - PMHx: 13:37 Seizures; Hypertension; kg - PSHx: 13:37 Cardiac Stents; kg - Immunization history:: Adult Immunizations up to date, Client reports receiving the 1st dose of the Covid vaccine, July 2020 Moderna. - Social history:: Smoking status: Patient reports the use of cigarette tobacco products, smokes two packs cigarettes per day. Patient uses street drugs, "Legal" Pt unsure of whats in it. . Screenin:44 Abuse screen: Denies threats or abuse. Denies injuries from another. Nutritional kg screening: No deficits noted. Tuberculosis screening: No symptoms or risk factors identified. Fall Risk None identified. Assessment: 14:26 Respiratory: Airway is patent Respiratory effort is even, unlabored. ap3 14:32 General: Appears in no apparent distress. comfortable, Behavior is calm, cooperative. ap3 Pain: Complains of pain in head Pain does not radiate. Pain began suddenly. Neuro: Level of Consciousness is awake, alert, obeys commands, Oriented to person, place, time, situation, Appropriate for age Trouble Dispatcher are equal bilaterally Speech is normal, Facial symmetry appears normal. Cardiovascular: Denies chest pain, shortness of breath, Rhythm is regular. Respiratory: Airway is patent Respiratory effort is even, unlabored, Respiratory pattern is regular, symmetrical, Breath sounds are clear bilaterally. GI: No signs and/or symptoms were reported involving the gastrointestinal system. : No signs and/or symptoms were reported regarding the genitourinary system. EENT: No signs and/or symptoms were reported regarding the EENT system. Derm: Wound noted forehead. Musculoskeletal:. 16:35 Reassessment: Patient and/or family updated on plan of care and expected duration. Pain ap3 level reassessed. Patient is alert, oriented x 3, equal unlabored respirations, skin warm/dry/pink. 17:35 Reassessment: Patient and/or family updated on plan of care and expected duration. Pain ap3 level reassessed. Patient is alert, oriented x 3, equal unlabored respirations, skin warm/dry/pink. pain medication given. Vital Signs: 13:32 BP 95 / 59; Pulse 73; Resp 17; Temp 97.3(TE); Pulse Ox 96% on R/A; Weight 68.49 kg (R); kg Height 6 ft. 1 in. (185.42 cm) (R); Pain 8/10; 14:35 BP 106 / 68; ap3 15:14 BP 99 / 62; ap3 17:35 BP 116 / 64; Pulse 68; Pulse Ox 97% on R/A; Pain 7/10; ap3 13:32 Body Mass Index 19.92 (68.49 kg, 185.42 cm) kg ED Course: 11:56 Patient arrived in ED. am2 13:37 Triage completed. kg 13:37 Arm band placed on right wrist. kg 13:53 CT Head Brain wo Cont In Process Unspecified. EDMS 14:20 Initial lab(s) drawn, by me, sent to lab. Inserted saline lock: 20 gauge in right dh3 antecubital area, using aseptic technique. Blood collected. 14:23 Patient placed in an exam room, on a stretcher. ll1 14:25 Becka Fritz, RN is Primary Nurse. ap3 14:26 Patient has correct armband on for positive identification. Placed in gown. Bed in low ap3 position. Call light in reach. Side rails up X2. Pulse ox on. NIBP on. Door closed. Noise minimized. 14:33 UDS Sent. dh3 14:36 Jordan Austin MD is Attending Physician. kdr 18:45 No provider procedures requiring assistance completed. IV discontinued, intact, ap3 bleeding controlled, No redness/swelling at site. Pressure dressing applied. Administered Medications: 17:34 Drug: NS 0.9% 1000 ml Route: IV; Rate: 1 bolus; Site: right antecubital; ap3 18:45 Follow up: IV Status: Completed infusion; IV Intake: 1000ml ap3 17:34 Drug: Ketorolac 15 mg Route: IVP; Site: right antecubital; ap3 18:45 Follow up: Response: No adverse reaction; Pain is decreased ap3 17:34 Drug: Zofran (Ondansetron) 4 mg Route: IVP; Site: right antecubital; ap3 18:45 Follow up: Response: No adverse reaction ap3 Intake: 18:45 IV: 1000ml; Total: 1000ml. ap3 Outcome: 18:23 Discharge ordered by . kdr 18:45 Discharged to home ambulatory. ap3 18:45 Condition: good 18:45 Discharge instructions given to patient, Instructed on discharge instructions, follow up and referral plans. Demonstrated understanding of instructions, follow-up care. 18:46 Patient left the ED. ap3 Signatures: Dispatcher [employer] EDMS Jordan Austin MD MD kdr Moreno, Amanda am2 Herrera, Deanna [facility] Becka Fritz RN RN ap3 Phil Cabral RN RN ll1 Ankita Ji RN RN kg Corrections: (The following items were deleted from the chart) 13:46 13:32 Chief complaint: Patient states: Pt presents with complaints of falling and kg hitting his yesterday and unsure what happened. Pt stated, " I think I had a seizure and hit my head but I dont really know or remember. " Pt stated that he had one a few months ago but doesn't take his medications. Pt stated he did "legal" some kind of drug he bought of the street yesterday and today but isnt sure whats in it. kg 14:35 14:34 PMHx: diabetes mellitus; ap3 ap3
[2021-01-14 19:27] VITALS: TEMP 97.3
[2021-01-14 19:30] VITALS: BP 116/64; O2SAT 97
== END 2021-01-14 18:46 | disposition home or self-care (01) ==
LOC: ER 11:53
DX: E86.0 Dehydration (principal); R41.0 Disorientation, unspecified; N28.9 Disorder of kidney and ureter, unspecified; I10 Essential (primary) hypertension; G40.909 Epilepsy, unspecified, not intractable, without status epilepticus; W19.XXXA Unspecified fall, initial encounter; Z95.818 Presence of other cardiac implants and grafts; Z20.822 Contact with and (suspected) exposure to COVID-19
CPT/HCPCS: 96361; 85025; 80048; 36415; 83735; 85610; 80076; 81003; 84484; 83880; 80307; 70450; 96375; 96374; 99284; U0003; J7030; J2405

== ENCOUNTER 2021-02-14 15:53 | Emergency (ER) | payer OTHER ==
[2021-02-14] MEDS ORDERED: NA CHLORIDE 0.9% 100 ML ONE (16:48)
[2021-02-14] MEDS ORDERED: LEVETIRACETAM 500 MG/5 ML VIAL IV ONE (16:48)
--- NOTE | 2021-02-14 17:43 | RAD REPORT ---
EXAM DESCRIPTION: CT - Head Brain Wo Cont - 02/14/2021 5:34 pm CLINICAL HISTORY: fall, head injury posterior scalp COMPARISON: Head Brain Wo Cont dated 01/14/2021; Head Brain Wo Cont dated 12/09/2020 TECHNIQUE: All CT scans are performed using dose optimization technique as appropriate and may inclu de automated exposure control or mA/KV adjustment according to patient size. FINDINGS: No intracranial hemorrhage, hydrocephalus or extra-axial fluid collection.No areas of brai n edema or evidence of midline shift. Chronic small vessel ischemic changes. The paranasal sinuses and mastoids are clear. The calvarium is intact. IMPRESSION: No acute intracranial abnormality.
--- NOTE | 2021-02-14 17:45 | ER ---
Nurse's Notes [facility] Name: Karlos Leblanc Age: 55 yrs Sex: Male : 1965 Arrival Date: 02/14/2021 Time: 16:03 Bed 14 Private MD: Diagnosis: Epileptic seizures related to external causes, not intractable, without status epilepticus Presentation: 02/14 16:12 Chief complaint: EMS states: Seizure while sitting in sun outside of work, abrasion hb noted to top of head. EMS was called out for seizure this morning, pt refused transport at that time. Pt reports recent seizure med change. Coronavirus screen: At this time, the client does not indicate any symptoms associated with coronavirus-19. Ebola Screen: No symptoms or risks identified at this time. Initial Sepsis Screen: Does the patient meet any 2 criteria? No. Patient's initial sepsis screen is negative. Does the patient have a suspected source of infection? No. Patient's initial sepsis screen is negative. Risk Assessment: Do you want to hurt yourself or someone else? Patient reports no desire to harm self or others. Onset of symptoms was February 14, 2021. 16:12 Method Of Arrival: EMS: [facility] hb 16:12 Acuity: KENIA 3 hb Historical: - Allergies: 16:14 NKDA; hb - Home Meds: 16:14 gabapentin 100 mg Oral cap 2 caps 3 times per day [Active]; Keppra 100 mg/mL Oral soln hb [Active]; lisinopril 10 mg Oral tab 1 tab once daily [Active]; Percocet 2.5-325 mg Oral tab [Active]; - PMHx: 16:14 Seizures; Hypertension; hb - PSHx: 16:14 cardiac stents; hb - Immunization history:: Client reports receiving the 2nd dose of the Covid vaccine. - Social history:: Smoking status: Patient reports the use of cigarette tobacco products, smokes one pack cigarettes per day. - Family history:: not pertinent. - Hospitalizations: : No recent hospitalization is reported. Screenin:54 Abuse screen: Denies threats or abuse. Denies injuries from another. Nutritional es2 screening: No deficits noted. Tuberculosis screening: No symptoms or risk factors identified. Fall Risk Secondary diagnosis (15 points) seizures, Gait-. Assessment: 16:48 Reassessment: Patient and/or family updated on plan of care and expected duration. Pain es2 level reassessed. Patient is alert, oriented x 3, equal unlabored respirations, skin warm/dry/pink. Pt had seizure. Reports he missed his dose last night and this morning for seizure med. Admits to hitting L elbow and head during fall. General: Appears slender, unkempt, Behavior is calm, cooperative, appropriate for age. Pain: Complains of pain in "my whole body hurts." Pain currently is 7 out of 10 on a pain scale. Neuro: Level of Consciousness is awake, alert, obeys commands, Oriented to person, place, time, situation, Appropriate for age Gait is unsteady, Speech is normal. Cardiovascular: Capillary refill Patient's skin is warm and dry. Respiratory: Airway is patent Respiratory effort is even, unlabored, Respiratory pattern is regular, symmetrical. GI: No signs and/or symptoms were reported involving the gastrointestinal system. : No signs and/or symptoms were reported regarding the genitourinary system. EENT: No signs and/or symptoms were reported regarding the EENT system. Derm: Skin is pink, warm \\T\\ dry. Skin temperature is warm Pt does have small tear to L elbow from fall. 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 Vital Signs: 16:02 BP 156 / 80; Pulse 90; Resp 17; Pulse Ox 100% on R/A; es2 16:12 BP 156 / 80; Pulse 91; Resp 16; Temp 98.1; Pulse Ox 98% on R/A; Weight 59.42 kg; Height hb 6 ft. 1 in. (185.42 cm); Pain 8/10; 16:15 BP 130 / 69; Pulse 83; Resp 18; Pulse Ox 98% on R/A; es2 16:30 BP 149 / 78; Pulse 78; Resp 16; Pulse Ox 98% on R/A; es2 16:45 BP 167 / 83; Pulse 72; Resp 17; Pulse Ox 99% ; es2 16:12 Body Mass Index 17.28 (59.42 kg, 185.42 cm) hb Patricia Coma Score: 16:54 Eye Response: spontaneous(4). Verbal Response: oriented(5). Motor Response: obeys es2 commands(6). Total: 15. ED Course: 16:03 Patient arrived in ED. rn 16:03 German Guerin MD is Attending Physician. rn 16:13 Mary Fritz, RN is Primary Nurse. es2 16:14 Triage completed. hb 16:14 Arm band placed on. hb 16:28 Inserted saline lock: 20 gauge in right forearm, using aseptic technique. es2 16:54 Patient has correct armband on for positive identification. Call light in reach. es2 16:54 Seizure precautions initiated. es2 17:33 CT Head Brain wo Cont In Process Unspecified. EDMS 17:53 IV discontinued, intact, bleeding controlled, No redness/swelling at site. Pressure es2 dressing applied. 17:53 No provider procedures requiring assistance completed. es2 Administered Medications: 16:31 Drug: Keppra (levETIRAcetam) 1000 mg Route: IV; Rate: calculated rate; Site: right es2 forearm; 16:48 Follow up: Response: No adverse reaction; IV Status: Completed infusion es2 Outcome: 17:45 Discharge ordered by MD. rn 17:53 Discharged to home ambulatory. es2 17:53 Condition: stable 17:53 Discharge instructions given to patient, Instructed on discharge instructions, Demonstrated understanding of instructions. 17:54 Patient left the ED. es2 Signatures: Dispatcher [employer] EDMS German Guerin MD MD rn Baxter, Heather, RN RN Mary Fritz RN RN es2 Corrections: (The following items were deleted from the chart) 17:40 16:45 BP 167 / 83; Pulse 72bpm; Resp 7bpm; Pulse Ox 99%; es2 es2
--- NOTE | 2021-02-14 17:45 | EDPHYS ---
Physician Documentation [facility] Name: Karlos Leblanc Age: 55 yrs Sex: Male : 1965 Arrival Date: 02/14/2021 Time: 16:03 Bed 14 Private MD: ED Physician German Guerin HPI: 02/14 16:27 This 55 yrs old Male presents to ER via EMS with complaints of Seizure. rn 16:27 The patient presents with a history of multiple seizures, a total of 2. Character of rn seizure(s): Loss of consciousness: the patient did not lose consciousness, Motor activity: generalized, Incontinence: none, Apnea: the patient did not experience apnea, Circulation: the patient did not experience evidence of pulse disturbance, Eye movements: are unknown. Seizure onset: just prior to arrival. Associated injury: Head/face:. 16:28 Current symptoms: Currently, the patient is not experiencing any symptoms. The patient rn has experienced similar episodes in the past. The patient has not recently seen a physician. EMS states patient had 2 seizures today generalized. Has history of seizures and epilepsy. Takes Keppra. Did not take yesterday's or today's dose. Otherwise feels okay. Upon seizing this morning patient fell struck left elbow and back of head. Otherwise feels okay night with no recent illness.. Historical: - Allergies: 16:14 NKDA; hb - Home Meds: 16:14 gabapentin 100 mg Oral cap 2 caps 3 times per day [Active]; Keppra 100 mg/mL Oral soln hb [Active]; lisinopril 10 mg Oral tab 1 tab once daily [Active]; Percocet 2.5-325 mg Oral tab [Active]; - PMHx: 16:14 Seizures; Hypertension; hb - PSHx: 16:14 cardiac stents; hb - Immunization history:: Client reports receiving the 2nd dose of the Covid vaccine. - Social history:: Smoking status: Patient reports the use of cigarette tobacco products, smokes one pack cigarettes per day. - Family history:: not pertinent. - Hospitalizations: : No recent hospitalization is reported. ROS: 16:28 Constitutional: Negative for fever, chills, and weight loss, Eyes: Negative for injury, rn pain, redness, and discharge, Neck: Negative for injury, pain, and swelling, Cardiovascular: Negative for chest pain, palpitations, and edema, Respiratory: Negative for shortness of breath, cough, wheezing, and pleuritic chest pain, Abdomen/GI: Negative for abdominal pain, nausea, vomiting, diarrhea, and constipation, Back: Negative for injury and pain, MS/Extremity: Negative for injury and deformity, Skin: Positive for abrasion to scalp and abrasion to her left elbow Neuro: Negative for weakness, numbness, tingling Exam: 16:28 Constitutional: This is a well developed, well nourished patient who is awake, alert, rn and in no acute distress. Head/Face: Normocephalic, superficial abrasion right occiput, no laceration, no skull depression Eyes: Periorbital areas with no swelling, redness, or edema. ENT: No intraoral injury noted Neck: No cervical tenderness Chest/axilla: Normal chest wall appearance and motion. Nontender with no deformity. No lesions are appreciated. Cardiovascular: Regular rate and rhythm. No pulse deficits. Respiratory: No increased work of breathing, no retractions or nasal flaring. Abdomen/GI: Soft, non-tender Skin: Warm, dry, superficial abrasion to left elbow, no laceration MS/ Extremity: Pulses equal, no cyanosis. Full range of motion left elbow Neuro: Awake and alert, GCS 15, oriented to person, place, time, and situation. Cranial nerves II-XII grossly intact. Motor strength 5/5 in all extremities. Sensory grossly intact. Vital Signs: 16:02 BP 156 / 80; Pulse 90; Resp 17; Pulse Ox 100% on R/A; es2 16:12 BP 156 / 80; Pulse 91; Resp 16; Temp 98.1; Pulse Ox 98% on R/A; Weight 59.42 kg; Height hb 6 ft. 1 in. (185.42 cm); Pain 8/10; 16:15 BP 130 / 69; Pulse 83; Resp 18; Pulse Ox 98% on R/A; es2 16:30 BP 149 / 78; Pulse 78; Resp 16; Pulse Ox 98% on R/A; es2 16:45 BP 167 / 83; Pulse 72; Resp 17; Pulse Ox 99% ; es2 16:12 Body Mass Index 17.28 (59.42 kg, 185.42 cm) hb Patricia Coma Score: 16:54 Eye Response: spontaneous(4). Verbal Response: oriented(5). Motor Response: obeys es2 commands(6). Total: 15. MDM: 16:03 Patient medically screened. rn 17:44 Differential diagnosis: seizure. Data reviewed: vital signs, nurses notes. rn 17:44 Counseling: I had a detailed discussion with the patient and/or guardian regarding: the rn historical points, exam findings, and any diagnostic results supporting the discharge/admit diagnosis, radiology results, the need for outpatient follow up, to return to the emergency department if symptoms worsen or persist or if there are any questions or concerns that arise at home. Response to treatment: the patient's symptoms have markedly improved after treatment, and as a result, I will discharge patient. Special discussion: I discussed with the patient/guardian in detail that at this point there is no indication for admission to the hospital. It is understood, however, that if the symptoms persist or worsen the patient needs to return immediately for re-evaluation. ED course: CT head from fall without acute traumatic findings. Patient had not taken his medication since yesterday or the day before. Loaded with Keppra here. States has Keppra full bottle at home. Will discharge home.. 02/14 16:28 Order name: CT Head Brain wo Cont; Complete Time: 17:44 rn 02/14 16:16 Order name: IV Start; Complete Time: 16:22 rn 02/14 16:16 Order name: EKG - Nurse/Tech; Complete Time: 17:53 rn Administered Medications: 16:31 Drug: Keppra (levETIRAcetam) 1000 mg Route: IV; Rate: calculated rate; Site: right es2 forearm; 16:48 Follow up: Response: No adverse reaction; IV Status: Completed infusion es2 Disposition Summary: 02/14/21 17:45 Discharge Ordered Location: Home rn Problem: an acute exacerbation rn Symptoms: have improved rn Condition: Stable rn Diagnosis - Epileptic seizures related to external causes, not intractable, without status rn epilepticus Followup: rn - With: Private Physician - When: As needed - Reason: Recheck today's complaints, Re-evaluation by your physician Discharge Instructions: - Discharge Summary Sheet rn - Epilepsy rn - Seizure, Adult rn Forms: - Medication Reconciliation Form rn - Thank You Letter 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
[2021-02-14 19:25] VITALS: TEMP 98.1
[2021-02-14 19:28] VITALS: BP 167/83; O2SAT 99
== END 2021-02-14 17:54 | disposition home or self-care (01) ==
LOC: ER 15:53
DX: G40.509 Epileptic seizures related to external causes, not intractable, without status epilepticus (principal); I10 Essential (primary) hypertension; F17.210 Nicotine dependence, cigarettes, uncomplicated; Z95.818 Presence of other cardiac implants and grafts
CPT/HCPCS: 96365; 70450; 99284; J1953

== ENCOUNTER 2021-08-10 02:34 | Emergency (ER) | payer OTHER ==
--- OUTSIDE RECORDS SUMMARY | 2021-08-10 02:44 | XMS REPORT | Continuity of Care Document ---
:1965 Author Organization [facility] t Address [address] [place] [address] Care Team Providers Name Role Phone PCP, DOES NOT HAVE A Primary Care Physician Unavailable Lino ANTUNEZ Attending Clinician Unavailable Memo SLD EDUCATIONAL AIDELino Attending Clinician Doctor Unassigned, Name Attending Clinician Unavailable JANETTE Attending Clinician Unavailable ARIF Attending Clinician Unavailable SANTIAGO SEGURA Attending Clinician Unavailable Lino ANTUNEZ Admitting Clinician Unavailable ARIImtiaz Admitting Clinician Unavailable SANTIAGO SEGURA Admitting Clinician Unavailable Payers Payer Name Policy Type Policy Number Effective Date Expiration Date S briseida AET MEDICARE HMO [id number] 2016 POS 00:00:00 AETNA MEDICARE OUT [id number] 2020 OF NETWORK 00:00:00 Problems Condition Condition Condition Status Onset Resolution Last Treating Co mments Source Name Details Category Date Date Treatment Clinician Date Osteomyeli Osteomyeli Disease Active 2019-0 U nivers tis tis 7-13 ity of 00:00: [place] [address] [facility] Cellulitis Cellulitis Disease Active 2019-0 U nivers of left of left 7-12 ity of foot foot 00:00: [place] [address] [facility] Seizures Seizures Disease [facility] [address] [place] [address] Metabolic Metabolic Disease Active 2016-[address] [facility] acidosis acidosis 1-24 [facility] Leukocytos Leukocytos Disease Active 2016-05 [...] on, 06-17 [facility] - essential essential 00:00: [facility] mari 00 Center Status Status Disease Active 2016-[address] [facility] epilepticu epilepticu 06-16 Evelyn kes - s s 00:00: Medical 00 Center ANEMIA Diagnosis Active 2015-052016-04-05 Mem oria 06-04 09:38:00 l ANEMIA 00:00: [place] 00 Active 04/04/2016 [facility] OTHER Diagnosis Active 2015-052016-03-13 Mem oria 19:39:00 l OTHER 00:00: Kai 00 Active 03/13/2016 [place] FOOT Diagnosis Active 2016-02-12 Mem oria GANGRENE 01-30 20:08:00 l FOOT 00:00: Kai GANGRENE 00 Active 01/31/2016 [facility] LEFT FOOT Diagnosis Active 2016-01-31 Memoria SORES 01-30 22:38:00 l LEFT 00:00: Kai FOOT SORES 00 Active 01/31/2016 [place] CP Diagnosis Active 2015-02-15 Mem oria 02-15 16:10:00 l CP 00:00: [place] 00 Active 02/15/2015 [facility] CHEST PAIN Diagnosis Active 2015-02-15 Memoria 02-15 18:21:00 l CHEST 00:00: [place] PAIN 00 Active 02/15/2015 [facility] LEFT WRIST Diagnosis Active 2015-02-09 Memoria PAIN 02-09 16:02:00 l LEFT 00:00: Kai WRIST PAIN 00 Active 02/09/2015 [place] AMS Diagnosis Active 2015-01-23 Mem oria 01-23 15:36:00 l AMS 00:00: [place] 00 Active 01/23/2015 [facility] WOUND Diagnosis Active 2014-02-12 Mem oria INFECTION 10-20 13:06:00 l V WOUND 00:00: Kai NECFAS;CHR INFECTION 00 ONIC V OSTEOMY NECFAS;CHR ONIC OSTEOMY Active 10/20/2013 [facility] Acute Problem Active 2016-04-08 Memor ia osteomyeli 03:42:03 l tis Acute Kai (disorder) osteomyeli tis (disorder) Active Problem 04/08/2016 [place] Congestive Problem Active 2016-04-08 M emoria heart 03:42:03 l failure [place] (disorder) Congestive heart failure (disorder) Active Problem 04/08/2016 [place] Hypertensi Problem Active 2016-04-08 M emoria ve 03:42:03 l disorder, Kai systemic Hypertensi arterial ve (disorder) disorder,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 (disorder) Active Problem 04/08/2016 [place] Bronchitis Problem Active 2016-04-08 M emoria (disorder) 03:42:03 l [place] Bronchitis (disorder) Active Problem 04/08/2016 [facility] Chronic Problem Active 2016-04-08 Ed bandar obstructiv 03:42:03 l e lung Chronic Kai disease obstructiv (disorder) e lung disease (disorder) Active Problem 04/08/2016 [facility] History of Problem Active 2016-04-08 M emoria - 03:42:03 l infectious History Her cook disease of - (context-d infectious ependent disease category) (context-d ependent category) Active Problem 04/08/2016 [facility] History of Problem Active 2016-04-08 M emoria amputation 03:42:03 l of lesser History Herm delisa toe of (situation amputation ) of lesser toe (situation ) Active Problem 04/08/2016 [facility] History of Problem Active 2016-04-08 M emoria - 03:42:03 l cardiovasc History Her cook ular of - disease cardiovasc (context-d ular ependent disease category) (context-d ependent category) Active Problem 04/08/2016 [facility] Benign Problem Active 2016-04-08 Memor ia prostatic 03:42:03 l hyperplasi Benign Herm delisa a prostatic (disorder) hyperplasi a (disorder) Active Problem 04/08/2016 [facility] Epistaxis Problem Active 2016-04-08 Me moria (disorder) 03:42:03 l [place] Epistaxis (disorder) Active Problem 04/08/2016 [facility] CELLULITIS Diagnosis Active 2014-02-12 Memoria OF FOOT 13:06:00 l Kai CELLULITIS OF FOOT Active [facility] AC Diagnosis Active 2014-02-12 Mem oria OSTEOMYELI 13:06:00 l TIS-UNSPEC AC Raudel n OSTEOMYELI TIS-UNSPEC Active [facility] CHEST PAIN Diagnosis Active 2015-02-15 Memoria NOS 18:21:00 l CHEST [place] PAIN NOS Active [facility] GANGRENE, Diagnosis Active 2016-02-12 Memoria NOT 20:08:00 l ELSEWHERE Kai CLASSIFIED GANGRENE, NOT ELSEWHERE CLASSIFIED Active [facility] ANEMIA, Diagnosis Active 2016-04-05 Me moria UNSPECIFIE 09:38:00 l D ANEMIA, Kai UNSPECIFIE D Active [facility] History of Past Illness Condition Condition Condition Status Onset Resolution Last Treating Co mments Source Name Details Category Date Date Treatment Clinician Date Discharge Problem 2015-052016-03-17 2016-03-17 Memoria Diagnosis: 0-18 03:02:37 03:02:37 l Acute on 05:00: [place] chronic Discharge 00 renal Diagnosis: failure Acute on chronic renal failure 03/14/2016 03/17/2016 [facility] Discharge Problem 2015-052016-03-17 2016-03-17 Memoria Diagnosis: 0-18 03:02:37 03:02:37 l Anemia 05:00: [place] Discharge 00 Diagnosis: Anemia 03/14/2016 03/17/2016 [facility] Discharge Problem 2015-052016-03-17 2016-03-17 Memoria Diagnosis: 0-18 03:02:37 03:02:37 l Post-opera 05:00: Raudel n tive pain Discharge 00 Diagnosis: Post-opera tive pain 03/14/2016 03/17/2016 [facility] Discharge Problem 2015-052016-03-17 2016-03-17 Memoria Diagnosis: 0-18 03:02:37 03:02:37 l Acute 05:00: [place] hypokalemi Discharge 00 a Diagnosis: Acute hypokalemi a 03/14/2016 03/17/2016 [facility] Discharge Problem 2015-02-19 [facility]: 02-16 07:51:51 07:51:51 l Hyperlipid 14:36: Raudel n emia Discharge 09 Diagnosis: Hyperlipid emia 02/16/2015 02/19/2015 [facility] Discharge Problem 2015-02-19 2015-02-19 Memoria Diagnosis: 02-16 07:51:51 07:51:51 l Hypertensi 14:36: Raudel n on Discharge 00 Diagnosis: Hypertensi on 02/16/2015 02/19/2015 [facility] Discharge Problem 2015-02-19 2015-02-19 [facility] Diagnosis: 02-16 07:51:51 07:51:51 l Angina 14:35: [place] pectoris Discharge 54 Diagnosis: Angina pectoris 5 02/19/2015 [facility] Discharge Problem 2015-02-12 2015-02-12 Memoria Diagnosis: 02-09 09:59:31 09:59:31 l Wrist 05:00: Kai sprain Discharge 00 Diagnosis: Wrist sprain 02/09/2015 02/12/2015 [facility] Discharge Problem 2015-01-26 2015-01-26 Memoria Diagnosis: 01-23 02:07:27 02:07:27 l Epileptic 05:00: [place] seizure, Discharge 00 generalize Diagnosis: d Epileptic seizure, generalize d 01/23/2015 01/26/2015 [facility] Discharge Problem 2015-01-26 2015-01-26 Memoria Diagnosis: 01-23 02:07:27 02:07:27 l Cerebral 05:00: Kai seizure Discharge 00 Diagnosis: Cerebral seizure 01/23/2015 01/26/2015 [facility] Allergies, Adverse Reactions, Alerts Allergy Allergy Status Severity Reaction(s) Onset Inactive Treating Comm ents Source Name Type Date Date Clinician No Known DA Active U 2018- [facility] Allergie 0-10 [facility] 00:[facility] [address] Morphine Propensi Active Other (See 2016-[address] ty to Comments) 1-20 [facility] - adverse 00:00: Medical reaction 00 [place] MORPHINE Allergy Active Other 2016-05 [facility] 06-16 00:00: 00 NO KNOWN Drug Active Univers ALLERGIE Class ity of S [facility] morphine morphine Active [facility] Social History Social Habit Start Date Stop Date Quantity Comments Source Exposure to Not sure [facility] SARS-CoV-2 (event) [facility] Cigarettes smoked 2017-04-16 [facility] per 00:[facility]:00 00:00:00 [facility] Center day) - Reported Tobacco use and 2017-04-16 2017-04-[address] [facility] [facility] - exposure 00:00:00 00:00:00 [facility] Social History 2013-10-21 2013-10-21 [facility] racheldelisa 05:36:39 05:36:39 Sex [birth year] [facility] y of 00:00:00 00:00:00 [facility] Smoking Status Start Date Stop Date Source Unknown if ever smoked [facility] Current every day smoker 2017-04-16 00:00:00 [facility] Medications Ordered Filled Start Stop Current Ordering Indication Dosage Frequency Signature Comments Components Source Medication Medication Date Date Medication? Clinician (SIG) Name Name ketorolac 2020-05 No 30mg 30 mg, Unive rs (TORADOL) 06-04 Slow IV ity of injection 05:00: 04:08 Push, [place] 30 mg 00 :00 ONCE, 1 Medical dose, On [facility] 04/03/21 at 2300, Routine
body team member approving Restricted medication : ELIUD ANTUNEZ levETIRAcet 2020-05 No 1000mg 1,000 mg, Univers am (KEPPRA) 06-04 Oral, ONCE i ty of tablet 05:00: 04:09 NOW, 1 [place] 1,000 mg 00 :00 dose, On [facility] [place] [facility] 04/03/21 at 2300, Routine levETIRAcet 2020-05- No [id number] 500mg Take 1 Univers am 500 mg 06-0308 tablet by ity of tablet 00:00: 05:59 mouth 2 [place] 00 :00 (two) Medical times Branch daily for 30 days. amLODIPine 2019-0 Yes [id number] 10mg Take 1 Univers 10 mg 7-18 [id number] tablet by ity of tablet 00:00: mouth [place] 00 daily. Medical Branch aspirin 81 2018- Yes [id number] 81mg Take 1 Univers mg chewable 7-18 [id number] tablet by i ty of tablet 00:00: mouth [place] 00 daily. Medical Branch amLODIPine 2018- Yes [id number] 10mg Take 1 Univers 10 mg 7-18 [id number] tablet by ity of tablet 00:00: mouth [place] 00 daily. Medical Branch aspirin 81 Yes [id number] 81mg Take 1 Univers mg chewable 7-18 [id number] tablet by i ty of tablet 00:00: mouth [place] 00 daily. Medical Branch levETIRAcet 2018- Yes [id number] 1000mg Take 1 Univers am 1,000 mg 7-17 [id number] tablet by i ty of tablet 00:00: mouth 2 00 (two) Medical times Branch daily. metroNIDAZO 2018- Yes [id number] 500mg Take 1 Univers LE 500 mg 7-17 [id number] tablet by ity of tablet 00:00: mouth 2 (two) Medical times Branch daily. sulfamethox 2018- Yes [id number] 1{tbl} Take 1 Univers azole-trime 7-17 [id number] tablet by i ty of thoprim 00:00: mouth 2 [place] 800-160 mg 00 (two) Medical per tablet times Branch daily. atorvastati Yes [id number] 40mg Take 1 Univers n 40 mg 7-17 [id number] tablet by ity o f tablet 00:00: mouth at [place] 00 bedtime. Medical Branch HYDROcodone 2018- Yes [id number] 1{tbl} Take 1 Univers -acetaminop 7-17 [id number] tablet by i ty of hen 10-325 00:00: mouth [place] mg tablet 00 every 6 Medical (six) Branch hours as needed for Pain (scale 4-6). levETIRAcet 2018- Yes [id number] 1000mg Take 1 Univers am 1,000 mg 7-17 [id number] tablet by i ty of tablet 00:00: mouth 2 00 (two) Medical times Branch daily. metroNIDAZO Yes [id number] 500mg Take 1 Univers LE 500 mg 7-17 [id number] tablet by ity of tablet 00:00: mouth 2 [place] 00 (two) Medical times Branch daily. sulfamethox Yes [id number] 1{tbl} Take 1 Univers azole-trime 7-17 [id number] tablet by i ty of thoprim 00:00: mouth 2 [place] 800-160 mg 00 (two) Medical per tablet times Branch daily. atorvastati Yes [id number] 40mg Take 1 Univers n 40 mg 7- [id number] tablet by ity o f tablet 00:00: mouth at [place] 00 bedtime. Medical Branch HYDROcodone Yes [id number] 1{tbl} Take 1 Univers -acetaminop 7-17 [id number] tablet by i ty of hen 10-325 00:00: mouth [place] mg tablet 00 every 6 Medical (six) Branch hours as needed for Pain (scale 4-6). lovastatin Yes 20mg QD Take [address] (MEVACOR) 5-20 by mouth [facility] - 20 MG 20:42: nightly. Medical tablet 31 [place] aspirin/shawn Yes 2{packe Take 2 C HI [...] 10 MG 00:00: daily. Medical tablet 00 [place] Sodium 2015-05 Yes IVPB, 150 Memori a Chloride 1-09 ml/hr, l 0.9% IV 14:00: PRN, Start Herm delisa date: 04/05/16 8:00:00 [employer], Duration: 30, 1,000 ml EPINEPHrine 2015-05 Yes Notes: Memoria 1-09 MEDICATION l 13:22: WASTE Product Size: 1 mg Product Wasted: ___ mg Solu-CORTEF 2015-05 Yes Notes: Ed bandar - (Same as: l 13:22: Solu-JOHN Kai 00 F) Benadryl 2015-05 Yes Notes: Memoria 06-05 (Same as: l 13:22: Benadryl) Kai 00 Sodium 2015-05 Yes IV, 0 Memoria Chloride 1-09 ml/hr, l 0.9% IV 13:21: PRN, PRN Raudel n 00 Blood Transfusio n, Start date: 04/05/16 7:21:00 [employer], Duration: 30, 250 ml heparin 2015-05 Yes Notes: Memoria flush 06-05 (Same as: l 13:21: Heparin Lock Flush) BD Normal 2015-05 Yes Notes: Memori a Saline 06-05 (Same as: l Flush 13:21: BD Posiflush) Benadryl 2015-05 Yes Notes: Memoria 06-05 (Same as: l 13:21: Benadryl) Tylenol 2015-05 Yes Notes: Do Memor ia 06-05 not exceed l 13:20: 4 gm/day. (Same as: Tylenol) Acetaminoph 2015-05 No Notes: Ed bandar en 325 MG / 0-18 (Same as: l Hydrocodone 11:34: [place] Denita nn Bitartrate 00 325/5) Do 5 MG Oral not exceed Tablet 4gm/day of [[place] acetaminop 5/325] hen. Acetaminoph 2015-05 No 1 [...] 0-18 500 ml/hr, l 0.154 04:18: Infuse [place] MEQ/ML 00 Over: 1 Injectable hr, Route: [...] 02-16 cap, PO, l capsule 12:57: After [place] 00 Dinner, 0 Refill(s) fluconazole Yes 200 mg = 2 Memoria 100 mg oral 02-16 tab, PO, l tablet 12:57: [id number], 0 Denita nn 00 Refill(s) pantoprazol Yes 40 mg = 1 M emoria e 40 mg 02-16 tab, PO, l oral 12:57: Before Kai enteric 00 Breakfast, coated 0 tablet Refill(s) Acetaminoph Yes 1 tab, PO, Memoria en 325 MG / 02-16 Q4H, PRN l Hydrocodone 12:57: Pain Score [place] Bitartrate 00 1-3, 0 5 MG Oral [...] Dilaudid vancomycin No 2001 mg: Me moria 16 infuse l 11:00: over 2.5 [place] 00 hours metoprolol 0 No Notes: Memor ia 15 (Same as: l 14:00: Toprol XL) Sp[place] 00 May split tab, but do not crush. Alprazolam No Notes: Memor ia 1 MG Oral 02-09 With food l Tablet 13:19: or milk [place] [Xanax] 00 (Same as: Xanax) vancomycin No 2000 mg: Me moria -15 infuse l 10:00: over 2.5 [place] 00 hours Anoro 0 No Anoro Memoria [...] Dosing per l RPh 19:51: RPh, ., [place] 00 Drug form: MISC, Route: MISC, PRN, PRN Other -See Comment, 02/09/16 14:51:00 CDT, Duration: 30 day, Stop date: 03/10/16 14:50:00 CDT Dilaudid 0 No Notes: Memoria 02-08 Same as: l 18:01: Dilaudid [place] 00 Sodium No 500 mL, Memoria Chloride 02-08 500 ml/hr, l 0.154 17:59: Infuse [place] MEQ/ML 00 Over: 1 Injectable hr, Route: [...] bandar 02-08 (Same as: l 02:00: Zocor) Sp[place] 00 Cefuroxime No 1.5 gm, Ed bandar 02-08 Route: l 02:00: IVPB, Kai [id number], Dosing Weight 96.023, kg, Start date: 02/08/16 21:00:00 CDT, Duration: 3 doses or times, Stop date: 02/09/16 13:00:00 CDT Neutra-Phos No Notes: Ed bandar 02-08 Same as: l 01:04: Phos-Nak [place] 00 Mix 1 packet with 75 mL [...] -14 (Same as: l sodium 01:04: K [place] chloride 00 Phosphate. 0.9% INJ ) 1 mMol 250 mL phoshate has 1.47 mEq potassium Infuse over 4 hours Magnesium No Notes: Memori a Oxide 02-08 (Same as: l 01:04: Mag-Ox [place] 00 400) Magnesium oxide 766rr=665g g elemental magnesium Dose=____m g magnesium oxide (___mg elemental magnesium) Magnesium No Notes: Memori a Sulfate 02-08 WASTE: F/P l 01:04: - Sink; E [place] 00 - Municipal Trash Bin potassium No [...] WASTE: F/P l 01:04: - Sink; E [place] 00 - [facility] Trash Bin Albuterol No Notes: SEE Me [...] Memoria 02-08 (Same as: l 01:04: Colace) Sp[place] 00 (Do Not Crush) Glucagon No 1 mg, Memoria 02-08 Route: IM, l 01:04: Drug form: [place] PDR/INJ, PRN, Dosing Weight 96.023, kg, PRN Blood Glucose Results, Start date: 02/08/16 20:04:00 CDT, Duration: 30 day, Stop date: 03/09/16 20:03:00 CDT Acetaminoph No Notes: Ed bandar en 325 MG / 02-08 (Same as: l Hydrocodone 01:04: [place] Denita nn Bitartrate 00 325/5) Do 5 [...] e 02-07 25 mL, l 14:59: Route: [place] 00 IVPB, Drug form: SOLN, ONCE, Dosing [...] (ANES) 02-07 Drug form: l 13:40: SOLN, 00 ONCE, Stop date: 02/08/16 8:40:00 CDT rocuronium No Route: IV, M emoria (ANES) 02-07 Drug form: l 13:40: INJ, ONCE, Stop date: 02/08/16 8:40:00 CDT piperacilli No IV, ONCE Me moria n-tazobacta 02-07 l otto (ANES) 13:25: famotidine No Route: IV, M emoria (ANES) 02-07 Drug form: l 13:25: INJ, ONCE, Stop date: 02/08/16 8:25:00 CDT Rifadin IV No Notes: Memor ia 02-07 Child:10-2 l 12:00: 0mg/kg ,<= Sp[place] 00 600mg/day. Protect from light (Same as: Rifadin) Lidocaine No 5 mg, Memoria Hydrochlori 02-07 Route: l de 10 MG/ML 12:00: INTRADERM, Injectable Dosing Solution Weight 98.636, kg, ONCALL, [...] 02-06 Route: PO, l 17:00: Drug form: [place] TAB, Q4H, Start date: 02/07/16 12:00:00 CDT, [...] not exceed l Hydrocodone 18:10: 4gm/day of [place] Bitartrate acetaminop 10 MG Oral hen. Tablet (Same as: [[place] 10/325] 325/10) Tylenol No Notes: Do Memor ia 01-31 not exceed l 18:02: 4 gm/day. Spur (Same as: Tylenol) Vancomycin No 2000 mg: Me moria 01-31 infuse l 18:00: over 2.5 [place] 00 hours MEDICATION WASTE Product Size: 1000 [...] as: l / 13:22: Duoneb) Ipratropium 00 [place] 0.167 MG/ML Inhalant Solution Zofran No Notes: [...] tab, PO, l tablet 04:53: Daily, # [place] 00 30 tab, 0 Refill(s) atorvastati Yes [...] tab, PO, l Tablet 04:53: Daily, # [place] 00 30 tab, 0 Refill(s) cilostazol Yes 100 mg = 1 M emoria 100 mg oral 01-31 tab, PO, l tablet 04:53: BID, # 60 Raudel n 00 tab, 0 Refill(s) Acetaminoph No 650 mg, Mem oria en 01-31 Route: PO, l 03:28: Drug form: [place] 00 TAB, ONCE, Dosing Weight 95, kg, Priority: STAT, Start date: 01/31/16 22:28:00 CDT, Stop date: 01/31/16 22:28:00 CDT Piperacilli No Notes: Ed bandar n / 01-30 (Same as: l tazobactam 22:57: Zosyn) Denita nn Dosing based on Piperacill in component MEDICATION WASTE Product Size: 3375 mg Product Wasted: ___ mg Vancomycin No 2001 mg: Me moria 01-30 infuse l 22:57: over 2.5 [place] 00 hours MEDICATION WASTE Product Size: 1000 mg Product Wasted: ___ mg Sodium No 1,000 mL, Memori a Chloride 01-30 2,000 l 0.154 22:04: ml/hr, Sp[place] MEQ/ML 00 Infuse Injectable Over: 30 Solution minutes, Route: IV, 1,000, Drug form: INJ, ONCE, Priority: STAT, Dosing Weight 95 kg, Start date: 01/31/16 17:04:00 CDT, Duration: 1 doses or times, Stop date: 01/31/16 17:04:00 CDT Acetaminoph No Notes: Do M emoria en 325 MG / 01-30 not exceed l Hydrocodone 21:57: 4gm/day of [place] Bitartrate 00 acetaminop 10 MG Oral hen. Tablet (Same as: [[place] 10/325] 325/10) Amlodipine Yes 10 mg, PO, M emoria 01-30 Daily, 0 l 21:17: Refill(s) gabapentin Yes 300 mg, Ed bnadar 01-30 PO, BID, 0 l 21:17: Refill(s) [...] Memoria 02-16 (Same as: l 14:00: Prinivil, Sp[place] 00 Zestril) metoprolol No Notes: Memor ia [...] / 02-16 (Same as: l Hydrocodone 04:39: [place] Denita nn Bitartrate 00 325/5) Do 5 MG Oral not exceed Tablet 4gm/day of [[place] acetaminop 5/325] hen. Tessalon No Notes: Memoria Perles 02-16 (Same As: l 01:00: Tessalon Perles) "Do Not Crush" Acetaminoph Yes 1 tab, PO, Memoria en 325 MG / 02-16 Q12H, PRN l Hydrocodone 00:48: Pain, # 30 [place] Bitartrate 00 tab, 0 5 MG Oral Refill(s) Tablet [[place] 5/325] Alprazolam Yes 0.25 mg = Me moria 0.25 MG 02-16 1 tab, PO, l Oral Tablet 00:48: BID, PRN He r[place] [Xanax] 00 Anxiety, Stress, # 20 tab, 0 Refill(s) metoprolol Yes 25 mg, PO, M emoria tartrate 02-16 BID, 0 l 00:48: Refill(s) NS 1,000 mL No 1,000 mL, M emoria 02-15 Rate: 75 l 23:04: ml/hr, [place] 00 Infuse over: 13.3 hr, Route: IV, Dosing Weight 13.636 kg, Total Volume: 1,000, Start date: 02/15/15 18:04:00, Duration: 30 day, Stop date: 03/17/15 18:03:00 Xopenex No Notes: SEE Ed bandar 02-15 RT l 23:03: DOCUMENTAT ION (Same as:Xopenex ) Non-Formul tamara Acetaminoph No Notes: Do [place] emoria en 325 MG / 02-15 not exceed l Hydrocodone 23:03: 4gm/day of Kai Bitartrate 00 acetaminop 10 MG Oral hen. Tablet (Same as: [[place] 10/325] 325/10) Albuterol No Notes: Memori a 0.833 MG/ML 02-15 (Same as: l / 20:51: Duoneb) Kai Ipratropium 00 [place] 0.167 MG/ML Inhalant Solution [DuoNeb] Aspirin No [...] or times, Stop date: 01/23/15 14:39:00 Saline 2015-0 No Notes: Memoria Flush 0.9% 01-23 preservati l 19:39: ve free. Kai 00 Immunizations Ordered Immunization Filled Immunization Date Status Commen ts Source Name Name pneumococcal 2015-02-16 Completed [facility] 23-valent vaccine 13:53:00 Kai Vital Signs Vital Name Observation Time Observation Value Comments Source Systolic blood 2021-04-04 05:00:00 102 mm[Hg] [facility] Diastolic blood 2021-04-04 05:00:00 62 [facility]Hg[facility] 2021-04-04 05:00:00 89 /min [facility] Oxygen saturation in 2021-04-04 05:00:00 99 /min [facility] Arterial blood by [facility] Pulse oximetry Branch Respiratory rate 2021-04-04 04:00:00 16 /min [facility] Body temperature 2021-04-04 03:37:[address] [facility] Body height 2021-04-04 03:37:00 185.4 cm [facility] Body weight 2021-04-04 03:37:00 72.576 kg [facility] BMI 2021-04-04 03:37:00 21.11 kg/m2 [facility] WEIGHT 2020-01-02 00:00:00 85.276 kg WEIGHT 2020-01-02 00:00:00 85.276 kg Systolic (mm Hg) 2016-04-05 18:57:00 Ed rial [place] Diastolic (mm Hg) 2016-04-05 18:57:00 Mem orial Kai Respitory Rate 2016-04-05 18:57:00 Memwillian al [place] Heart Rate 2016-04-05 18:57:00 [facility] Kai Systolic (mm Hg) 2016-04-05 18:27:00 Ed rial Kai Diastolic (mm Hg) 2016-04-05 18:27:00 Mem orial Kai Respitory Rate 2016-04-05 18:27:00 Memori al [place] Heart Rate 2016-04-05 18:27:00 [facility] [place] Respitory Rate 2016-04-05 17:57:00 Memori al [place] Heart Rate 2016-04-05 17:57:00 [facility] Kai Systolic (mm Hg) 2016-04-05 17:57:00 Ed rial Kai Diastolic (mm Hg) 2016-04-05 17:57:00 Mem orial [place] Temperature Oral (F) 2016-04-05 17:35:00 97.7 F [facility] Kai Temperature Oral (F) 2016-04-05 17:27:00 97.7 F [facility] Kai Temperature Oral (F) 2016-04-05 16:22:00 98.2 F [facility] [place] Weight 2016-04-05 13:20:00 [facility] BMI Calculated 2016-04-05 13:20:00 Memori al [place] Height 2016-04-05 13:20:00 185 cm [facility] Kai Respitory Rate 2016-03-14 11:00:00 Memori al Kai Systolic (mm Hg) 2016-03-14 11:00:00 Ed rial [place] Diastolic (mm Hg) 2016-03-14 11:00:00 Mem orial [place] Systolic (mm Hg) 2016-03-14 10:00:00 Ed rial Kai Diastolic (mm Hg) 2016-03-14 10:00:00 Mem orial [place] Respitory Rate 2016-03-14 10:00:00 Memori al Sp[place] Temperature Oral (F) 2016-03-14 09:00:00 98.8 F [facility] Respitory Rate 2016-03-14 09:00:00 Memori al Kai Systolic (mm Hg) 2016-03-14 09:00:00 Ed rial Kai Diastolic (mm Hg) 2016-03-14 09:00:00 Mem orial [place] Temperature Oral (F) 2016-03-14 05:00:00 98.7 F [facility] Heart Rate 2016-03-14 03:48:00 [facility] Kai BMI Calculated 2016-03-13 23:42:00 Memori al Sp[place] Weight 2016-03-13 23:42:00 [facility] [place] Temperature Oral (F) 2016-03-13 23:42:00 98.6 F [facility] Kai Height 2016-03-13 23:42:00 185.42 cm Memorial Kai Heart Rate 2016-03-13 23:42:00 [facility] [place] Heart Rate 2016-02-18 19:19:00 [facility] [place] Temperature Oral (F) 2016-02-18 19:19:00 98.8 F [facility] Kai Respitory Rate 2016-02-18 19:19:00 Memori al [place] Systolic (mm Hg) 2016-02-18 19:19:00 Ed rial Sp[place] Diastolic (mm Hg) 2016-02-18 19:19:00 Mem orial Kai Temperature Oral (F) 2016-02-18 15:28:00 98.3 F [facility] Heart Rate 2016-02-18 15:28:00 [facility] [place] Systolic (mm Hg) 2016-02-18 15:28:00 Ed rial [facility] Diastolic (mm Hg) 2016-02-18 15:28:00 [facility] Respitory Rate 2016-02-18 15:28:00 [facility] Temperature Oral (F) 2016-02-18 12:40:00 98.2 F [facility] Heart Rate 2016-02-18 12:40:00 [facility] Systolic (mm Hg) 2016-02-18 12:40:00 Ed rial [facility] Diastolic (mm Hg) 2016-02-18 12:40:00 Mem o[facility] Respitory Rate 2016-02-18 12:40:00 [facility] Weight 2016-02-08 11:10:00 [facility] BMI Calculated 2016-02-08 10:24:00 [facility] Weight 2016-02-08 10:24:00 [facility] Height 2016-02-08 10:24:00 185.42 cm [facility] Weight 2016-02-01 04:41:00 [facility] BMI Calculated 2016-02-01 04:41:00 [facility] Height 2016-02-01 04:41:00 185.42 cm [facility] Height 2016-01-31 19:21:00 185.42 cm [facility] BMI Calculated 2016-01-31 19:21:00 [facility] Respitory Rate 2015-02-16 18:18:00 [facility] Temperature Oral (F) 2015-02-16 17:50:00 98.0 F [facility] Respitory Rate 2015-02-16 17:50:00 [facility] Heart Rate 2015-02-16 17:50:00 [facility] Systolic (mm Hg) 2015-02-16 17:50:00 Ed rial Kai Diastolic (mm Hg) 2015-02-16 17:50:00 Mem [facility] Temperature Oral (F) 2015-02-16 12:35:00 98.2 F [facility] Heart Rate 2015-02-16 12:35:00 [facility] Systolic (mm Hg) 2015-02-16 12:35:00 Ed rial Kai Diastolic (mm Hg) 2015-02-16 12:35:00 [facility] Respitory Rate 2015-02-16 12:35:00 [facility] Temperature Oral (F) 2015-02-16 09:00:00 97.5 F [facility] Systolic (mm Hg) 2015-02-16 09:00:00 Ed rial [facility] Diastolic (mm Hg) 2015-02-16 09:00:00 [facility] Heart Rate 2015-02-16 09:00:00 [facility] Height 2015-02-16 00:50:00 185.42 cm [facility] BMI Calculated 2015-02-16 00:50:00 [facility] Weight 2015-02-16 00:50:00 [facility] Weight 2015-02-15 17:48:00 [facility] BMI Calculated 2015-02-15 17:48:00 [facility] Height 2015-02-15 17:48:00 185.42 cm [facility] Temperature Oral (F) 2015-02-09 21:12:00 98.2 F [facility] Heart Rate 2015-02-09 21:12:00 [facility] Respitory Rate 2015-02-09 21:12:00 [facility] Systolic (mm Hg) 2015-02-09 21:12:00 Ed rial [facility] Diastolic (mm Hg) 2015-02-09 21:12:00 [facility] BMI Calculated 2015-02-09 20:27:00 [facility] Weight 2015-02-09 20:27:00 [facility] Height 2015-02-09 20:27:00 185.42 cm [facility] Systolic (mm Hg) 2015-02-09 20:27:00 Ed [facility] Diastolic (mm Hg) 2015-02-09 20:27:00 [facility] Heart Rate 2015-02-09 20:27:00 [facility] Respitory Rate 2015-02-09 20:27:00 [facility] Systolic (mm Hg) 2015-01-23 23:00:00 Ed rial [facility] Diastolic (mm Hg) 2015-01-23 23:00:00 [facility] Systolic (mm Hg) 2015-01-23 22:00:00 Ed [facility] Diastolic (mm Hg) 2015-01-23 22:00:00 [facility] Systolic (mm Hg) 2015-01-23 21:00:00 Ed [facility] Diastolic (mm Hg) 2015-01-23 21:00:00 [facility] Respitory Rate 2015-01-23 19:15:00 [facility] 2015-01-23 18:26:00 [facility] Height 2015-01-23 18:26:00 185.42 cm [facility] BMI Calculated 2015-01-23 18:26:00 [facility] Respitory Rate 2015-01-23 18:26:00 [facility] Heart Rate 2015-01-23 18:26:00 [facility] Temperature Oral (F) 2015-01-23 18:26:00 98.5 F [facility] Procedures Procedure Date / Time Performing Clinician Source Performed CT HEAD WO CONTRAST 2021-04-04 04:32:50 Eliud Antunez [facility] XR CERVICAL SPINE 3 VW 2021-04-04 04:21:36 Eliud Antunez [facility] XR SHOULDER 2+ VW RIGHT 2021-04-04 04:21:36 Eliud Antunez [facility] BASIC METABOLIC PANEL 2021-04-04 03:59:00 Eliud Antunez [facility] (NA, K, CL, CO2, [facility] GLUCOSE, BUN, CREATININE, CA) CBC WITH DIFF 2021-04-04 03:59:00 Eliud Antunez [facility] NOTICE OF PRIVACY 2021-04-04 03:21:27 Doctor Unassigned, No [facility] PRACTICES Name Medical Branch CONSENT/REFUSAL FOR 2021-04-04 03:20:48 Doctor Unassigned, No Un [facility] DIAGNOSIS AND TREATMENT Name Medical Branch Amputation of Chacorta Quinn toe<sup>1</sup> Blood transfusion Chacorta johnson Plan of Care Planned Activity Planned Date [...] s - Test 00:00:00 (procedure) [code = [facility] 44913806] Future Scheduled [address] [facility] - Test 00:00:00 malignant neoplasm Medical C enter of colon (procedure) [code = 863708765] Encounters Start End Encounter Admission Attending Care Care Encounter Source Date/Time Date/Time Type Type Clinicians Facility Department ID 2021-03-02 Inpatient ER [facility] Orthopedics [id number] 02:26:50 [facility] 2021-04-03 2021-04-03 Emergency X [facility] ERT [id number] [facility] 21:25:00 23:39:00 ELIUD espinoza of [facility] 2021-04-03 2021-04-03 Emergency [facility] [id number] [facility] 21:25:00 23:39:00 Eliud CLAY 350.1.13.10 ity of [place] [id number] [facility] [id number] [facility] mari 084 Branch 2021-04-03 2021-04-03 Orders Doctor LASSITER [id number] Univers 00:00:00 00:00:00 Only Unassigned, BARBARA 350.1.13.10 ity of [place] [facility] 4.2.7.2.686 Ady [id number] [facility] mari 009 Branch 2020-01-02 2020-01-02 Emergency ER [facility] Emergency [id number] [facility] 06:16:00 06:16:00 2016-04-05 2016-04-06 [facility] [id number] Memoria 14:00:00 05:59:00 r Kai The 08 [facility] 2016-03-13 2016-03-14 Emergency [facility] [id number] Memoria 23:41:00 15:51:00 r Spur The 07 [facility] 2016-01-31 2016-02-18 Inpatient [facility] [id number] Memoria 18:47:00 20:15:00 r Kai The 06 [facility] 2015-02-15 2015-02-16 OBS [facility] [id number] Memoria 17:38:00 21:20:00 Observatio r Spur [facility] 05 [facility] 2015-02-09 2015-02-09 EC [facility]Flavo [facility] [id number] Memoria 20:20:00 21:13:00 Emergency r Sp[facility] The 04 [facility] 2015-01-23 2015-01-23 EC [facility]Flavo [facility] [id number] Memoria 18:23:00 23:13:00 Emergency r Spur The 03 [facility] 2013-10-31 2013-11-30 OP [facility]Flavo [facility] [id number] Memoria 13:00:00 04:59:00 Recurring r Kai The [facility] Results Test Description Test Time Test Comments Results Result Comments Source BASIC METABOLIC PANEL (NA, K, CL, CO2, GLUCOSE, BUN, 2021-03 05:02:30 CREATININE, CA) Test Item Value Reference Range Interpretation Comme nts NA (test code = 4946656560) 135 mmol/L 135-145 K (test code = 6514993924) 4.0 mmol/L 3.5-5.0 CL (test code = 9915277526) 104 mmol/L 98-108 CO2 TOTAL (test code = 0162073628) 19 mmol/L 23-31 L AGAP (test code = 1444765118) 2-16 BUN (test code = 4893172106) 11 mg/dL 7-23 GLUCOSE (test code = 3326385537) 104 mg/dL 70-110 CREATININE (test code = 0.91 mg/dL 0.60-1.25 3489339891) CALCIUM (test code = 9567935127) 8.8 mg/dL 8.6-10.6 eGFR (test code = 7689722152) mL/min/1.73m2 DELLA (test code = DELLA) Association of Glomerular Filtration Rate (GFR) and Staging of Kidney Disease* + +-------- + ------+| GFR (mL/min/1.73 m2) ?| With Kidney Damage ?| ?Without Kidney Damage+ +-- + +| ?>90 ?| ?Stage one ?| ? Normal ?+ +------- + -------+| ?60-89 ?| ?Stage two ?| ? Decreased GFR ? + +-------- + ------+| ?30-59 ?| ?Stage three ?| ? Stage three ? + +-------- + ------+| ?15-29 ?| ?Stage four ? | ? Stage four ?+ +------- + -------+| ?<15 (or dialysis) ? ?| ?Stage five ? | ? Stage five ?+ +------- + -------+ *Each stage assumes the associated GFR level has been in effect for at least three months. ?Stages 1 to 5, with or without kidney disease, indicate chronic kidney disease. Notes: Determination of stages one and two (with eGFR >59mL/min/1.73 m2) requires estimation of kidney damage for at least three months as defined by structural or functional abnormalities of the kidney, manifested by either:Pathological abnormalities or Markers of kidney damage (including abnormalities in the composition of the blood or urine or abnormalities in imaging tests). Lab Interpretation (test code = Abnormal 43101-4) [facility] WITH [id number] 04:48:31 Test Item Value Reference Range Interpretation Comments WBC (test code = See_Comment [Automated 1188-2) message] The sy stem which generated this result transmitted reference range : 4.20 - 10.70 10*3/?L. The reference range was not used to interpret this result as normal/abnormal . RBC (test code = See_Comment L [Automated 419-8) message] The sy stem which generated this result transmitted reference range : 4.26 - 5.52 10*6/?L. The reference range was not used to interpret this result as normal/abnormal . HGB (test code = 13.9 g/dL 12.2-16.4 718-7) HCT (test code = 40.5 % 38.4-49.3 4544-3) MCV (test code = 96.9 fL 81.7-95.6 H 787-2) MCH (test code = 33.3 pg 26.1-32.7 H 785-6) MCHC (test code = 34.3 g/dL 31.2-35.0 786-4) RDW-SD (test code = 48.4 fL 38.5-51.6 82439-3) RDW-CV (test code = 13.6 % 12.1-15.4 788-0) PLT (test code = See_Comment [Automated 777-3) message] The sy stem which generated this result transmitted reference range : 150 - 328 10*3/ ?L. The reference r lance was not used to interpret this result as normal/abnormal . MPV (test code = 9.4 fL 9.8-13.0 L 10746-5) NRBC/100 WBC (test See_Comment [Automat ed code = 5967474837) message] The system which generated this result transmitted reference range : 0.0 - 10.0 /100 WBCs. The refer ence range was not u sed to interpret th is result as normal/abnormal . NRBC x10^3 (test code <0.01 See_Comment [Auto mated = 2740690962) message] The s ystem which generated this result transmitted reference range : 10*3/?L. The reference range was not used to interpret this result as normal/abnormal . GRAN MAT (NEUT) % 40.0 % (test code = 770-8) IMM GRAN % (test code 0.70 % = 3276469958) LYMPH % (test code = 42.0 % 736-9) MONO % (test code = 9.4 % 5905-5) EOS % (test code = 7.0 % 713-8) BASO % (test code = 0.9 % 706-2) GRAN MAT x10^3(ANC) 3.99 10*3/uL 1.99-6.95 (test code = 8122509323) IMM GRAN x10^3 (test 0.07 10*3/uL 0.00-0.06 H code = 6140783839) LYMPH x10^3 (test code 4.19 10*3/uL 1.09-3.23 H = 731-0) MONO x10^3 (test code 0.94 10*3/uL 0.36-1.02 = 742-7) EOS x10^3 (test code = 0.70 10*3/uL 0.06-0.53 H 711-2) BASO x10^3 (test code 0.09 10*3/uL 0.01-0.09 = 704-7) Lab Interpretation Abnormal (test code = 87733-4) [facility]AST, LEFT 2020-01-02 15:45:00FINAL REPORT CT of the left shoulder without contrast History: left shoulderdislocation Comparisons: Radiograph dated January 02, 2020 Technique: CT of the left shoulder was performed without contrast. Axial images were generated as were multiplanar reformatted images in the coronal and sagittal planes. This exam was performed according to our departmental dose optimization program which includes automated exposure control, adjustment of the mA and/or kV according to patient'ssize and/or use of iterative reconstructive technique. Findings: [...] sites. Signed: Delisa Bustillo MDReport Verified Date/Time: 11/2019 15:45:14 Reading Location: [facility] Radiology Reading Room SARS-COV2/RT-PCR ([facility])2020-01-02 13:11:00 Test Item Value Reference Range Interpretation Comments SARS-COV2/RT-PCR (test Negative Not Detected, Negative, code = 1635371) See external report for linked test SARS-COV-2 PERFORMING LAB [facility] CARLOS MANUEL (test code = 8646670) Negative result for this test determines that [...] 564(g) of the Act.Fact Sheet for Healthcare Providers:https://www.[employer]/sites/default/files/product/documents/Fact_Shee r_PX_Qcgnbgvwf_Epso_JFLE-EuT-4.pdfFact Sheet for Healthcare Patients:https://www.[employer]/sites/default/files/product/ documents/Rheb_Tyajd_Hzawwgjn_Brwr_PDSZ-RkU-3.pdfPerforming Laboratory:[facility].[place], [place] [address]VCJ, SHOULDER, COMPLETE (MIN 2 VIEWS), [id number] 10:34:00Reason for exam:->ARM INJURYShould this be performed at the bedside?->YesFINAL REPORT RAD, SHOULDER, COMPLETE (MIN 2 VIEWS), LEFT INDICATION: ARM INJURY COMPARISON: 2 hours prior TECHNIQUE: Single frontal view of the left shoulder. IMPRESSION: Redemonstration of chronic changes in the anteriorly displaced humeral head. Glenoid rim appears preserved.Acromioclavicular joint remains intact. Signed: JR Moreira Robert MDReport Verified Date/Time: 01/02/2020 10:34:05 Reading Location: [facility] Radiology Reading Room PT/APTT 2020-01-02 09:03:00 [...] S NOT APPLICABLE FOR DIALYSIS PATIEN TS. It Risk Advisor ID - EDASICBC W/PLT COUNT & AUTO [id number] 08:30:00 Test Item Value Reference Range Interpretation [...] 2801) RAD, SHOULDER, COMPLETE (MIN 2 VIEWS), [id number] 07:45:00Reason for exam:- >ARM INJURYFINAL REPORT RAD, [...] MDReport Verified Date/Time: 01/02/2020 07:45:57 Reading Location: [facility] Radiology Reading Room Electronic ally signed by: RENEE MOREIRA on 01/02/2020 07:45 AMBLOOD CULTURE 2018-10-18 02:00:00 Test Item Value Reference Range Interpretation Comments CULTURE (BEAKER) (test No growth in 5 days code = 1095) BLOOD [id number] 20:01:00 Test Item Value Reference Range Interpretation Comments CULTURE (BEAKER) (test No growth in 5 days code = 1095) EEG AWAKE AND [id number] 14:49:00Reason for exam:->seizuresDate(s) of EE10/14/18DATE OF REPORT: 10/14/18ACC: [id number] Number: [id number] time: 13:36Stop time: 13:57ICD-10: R56.9 Unspecified ConvulsionsCPT Code: 84509 EEG: awake and drowsy <40 min HISTORY: [...] Indigo Zabala MDNeurophysiology Fellow Mario Castorenaurophysiology/Epilepsy Attending [facility] METABOLIC [id number] 07:41:00 Test Item Value Reference Range Interpretation [...] PATIEN TS. CBC W/PLT COUNT & AUTO [id number] 05:30:00 Test Item Value Reference Range Interpretation [...] (test code = 2801) VITAMIN B12 AND [id number] 19:46:00 Test Item Value Reference Range Interpretation Comments VITAMIN B12 (BEAKER) (test code = 683 pg/mL 213-816 774) FOLATE (BEAKER) (test code = 362) > ng/mL >=7.0 [id number] 17:59:00 Test Item Value Reference Range Interpretation Comments PHOSPHORUS (BEAKER) (test code = 4.0 mg/dL 2.3-4.7 604) [id number] 17:59:00 Test Item Value Reference Range Interpretation Comments MAGNESIUM (BEAKER) (test code = 2.5 mg/dL 1.6-2.6 627) CT, BRAIN, WITHOUT [id number] 16:58:00FINAL REPORT CT head without contrast. Reason [...] MDReport Verified Date/Time: 10/12/2018 16:58:56 Reading Location: [facility] C0[facility] Neuro Reading Room ALYSIS W/ [id number] 16:25:00 Test Item Value Reference Range Interpretation [...] 516) SOURCE(BEAKER) (test code = Urine, Voided 1120) BLOOD [id number] 10:00:00 Test Item Value Reference Range Interpretation Comments CULTURE (BEAKER) (test No growth in 5 days code = 1095) STOOL CULTURE + SHIGA [id number] 09:59:00 Test Item Value Reference Range Interpretation Comments CULTURE (BEAKER) No Salmonella, Shigella (test code = 1095) or Campylobacter isolated STOOL PATH [id number] 09:01:00 Test Item Value Reference Range Interpretation Comments PATHOGEN EXAM CHARGED (BEAKER) (test Done code = 4524) BASIC METABOLIC [id number] 06:59:00 Test Item Value Reference Range Interpretation [...] APPLICABLE FOR DIALYSIS PATIEN TS. SHIGA TOXIN [id number] 15:48:00 Test Item Value Reference Range Interpretation Comments SHIGA TOXIN 1 (BEAKER) (test Not detected Not detected code = 2177) SHIGA TOXIN 2 (BEAKER) (test Not detected Not detected code = 2179) CLOSTRIDIUM DIFFICILE TOXIN [id number] 15:13:00 Test Item Value Reference Range Interpretation [...] a positive result is not recommended.BLOOD GAS, [id number] 11:03:00 Test Item Value Reference Range Interpretation [...] code = 1819) 21.0 % BASIC METABOLIC [id number] 05:14:00 Test Item Value Reference Range Interpretation [...] NOT APPLICABLE FOR DIALYSIS PATIEN TS. PTH, [id number] 05:03:00 Test Item Value Reference Range Interpretation Comments PARATHYROID HORMONE INTACT 41.8 pg/mL 8.5-72.5 (BEAKER) (test code = 577) BASIC METABOLIC [id number] 07:10:00 Test Item Value Reference Range Interpretation [...] APPLICABLE FOR DIALYSIS PATIEN TS. SODIUM, RANDOM [id number] 06:58:00 Test Item Value Reference Range Interpretation Comments SODIUM URINE (BEAKER) (test code = 65 meq/L 243) Reference Range: No NormalsPROTHROMBIN [id number] 06:47:00 Test Item Value Reference Range Interpretation Comments PROTIME (BEAKER) (test code = 14.5 seconds 11.7-14.7 759) INR (BEAKER) (test code = 370) 1.1 <=5.9 RECOMMENDED COUMADIN/WARFARIN INR THERAPY RANGESSTANDARD DOSE: 2.0 - 3.0 Includes: PROPHYLAXIS forvenous thrombosis, systemic embolization; TREATMENT for venous thrombosis and/or pulmonary embolus.HIGH RISK: Target INR is 2.5-3.5 for patients with mechanical heart valves.RAPID DRUG SCREEN, [id number] 15:43:00 Test Item Value Reference Range Interpretation [...] situations. Chain of custody not maintained. Some hwej-fwf-yapihwu medications, as well as adulterants, may cause inaccurate results. Clinical correlation should be applied. A more comprehensive drug screen or confirmation of a detected drug may be performed upon request. URINE [id number] 14:33:00 Test Item Value Reference Range Interpretation Comments CULTURE (BEAKER) (test code = 1095) No growth BASIC METABOLIC [id number] 08:09:00 Test Item Value Reference Range Interpretation [...] PATIEN TS. CBC W/PLT COUNT & AUTO [id number] 06:38:00 Test Item Value Reference Range Interpretation [...] (BEAKER) (test code = 2801) U/S, RENAL, [id number] 22:34:00Reason for exam:->acute kidney injury FINAL REPORT [...] Zion Jack Verified Date/Time: 04/17/2017 22:34:25 Reading Location:[facility] Consult Reading Room MR, BRAIN, WITHOUT [id number] 19:18:00Reason for exam:->Stroke evaluationFINAL REPORT MRI Brain [...] Charlene ified Date/Time: 04/17/2017 19:18:34 Reading Location: [facility] Radiology Reading Room EEG MONITORING WITH VIDEO RECORDING EACH 24 [id number] 18:01:00DATE OF TEST: 04/17/2017 DATE OF REPORT 04/17/2017 ACC: [id number] EE Start time: 16:42 Stop time: 18:44 ICD-10: R56.9 CPT Code: 32140 HISTORY: 51 y/o woman with history of [...] Shahnaz Davis MD Neurophysiology Attending ALYSIS W/ [id number] 11:57:00 Test Item Value Reference Range Interpretation [...] 1583) SOURCE(BEAKER) (test code = Urine, Cooper 1767) EOSINOPHIL SMEAR, [id number] 11:56:00 Test Item Value Reference Range Interpretation Comments EOSINOPHIL SMEAR, URINE (BEAKER) No EOS seen No EOS seen (test code = 1851) CREATININE, RANDOM [id number] 11:24:00 Test Item Value Reference Range Interpretation Comments CREATININE URINE (BEAKER) (test 69.7 mg/dL code = 375) Reference Range: No NormalsSODIUM, RANDOM [id number] 11:24:00 Test Item Value Reference Range Interpretation Comments SODIUM URINE (BEAKER) (test code = 58 meq/L 243) Reference Range: No NormalsUREA NITROGEN, RANDOM [id number] 11:24:00 Test Item Value Reference Range Interpretation Comments UREA NITROGEN URINE (BEAKER) (test 172 mg/dL code = 538) Reference Range: No NormalsCREATINE KINASE (CK)2017-04-17 11:06:00 Test Item Value Reference Range Interpretation Comments CREATINE KINASE TOTAL (BEAKER) (test 136 U/L 29-200 code = 380) BASIC METABOLIC [id number] 04:53:00 Test Item Value Reference Range Interpretation [...] PATIEN TS. CBC W/PLT COUNT & AUTO [id number] 04:19:00 Test Item Value Reference Range Interpretation [...] EEG MONITORING WITH VIDEO RECORDING EACH 24 [id number] 17:57:00DATE OF TEST: 04/16/2017DATE OF REPORT 04/16/2017 ACC: [id number]: [id number] time: 08:42 Stop time: 16:42ICD-10: R56.9CPT Code: 54262UJTDMCS: 51 y/o woman with history of epilepsy [...] report.Phoebe Hassan MDEpilepsy Attending EEG AWAKE/ASLEEP AND [id number] 13:27:00Reason for exam:->status epilepticusDATE OF TEST: 04/16/2017DATE OF REPORT 04/16/2017 ACC: [id number] EEStart time: 08:21 Stop time: 08:42ICD-10: R56.9CPT Code: 32788KUSCZWG: 51 y/o woman with history of epilepsy [...] this report.Phoebe Hassan MDEpilepsy Attending HEPATIC FUNCTION [id number] 12:59:00 Test Item Value Reference Range Interpretation [...] 347) hemolyzed RAD, CHEST, 1 VIEW, NON [id number] 09:16:00Reason for exam:- >intubatedShould this be performed [...] Doe Verified Date/Time: 04/16/2017 09:16:32 Reading Location: [facility] Radiology Reading Room VITAMIN [id number] 07:31:00 Test Item Value Reference Range Interpretation Comments VITAMIN B12 (BEAKER) (test code = 450 pg/mL 302-846 922) FOLATE, [id number] 07:31:00 Test Item Value Reference Range Interpretation Comments FOLATE (BEAKER) (test code = 362) 8.0 ng/mL >=7.0 URINALYSIS W/ [id number] 07:09:00 Test Item Value Reference Range Interpretation [...] code = 514) SOURCE(BEAKER) (test code = 0835) [id number] 05:59:00 Test Item Value Reference Range Interpretation Comments MAGNESIUM (BEAKER) 3.0 mg/dL 1.6-2.6 H Specimen moderately (test code = 627) hemolyzed [id number] 05:59:00 Test Item Value Reference Range Interpretation Comments PHOSPHORUS (BEAKER) 3.0 mg/dL 2.3-4.7 Specimen moderately (test code = 604) hemolyzed BASIC METABOLIC [id number] 05:59:00 Test Item Value Reference Range Interpretation [...] NOT APPLICABLE FOR DIALYSIS PATIEN TS. PROTHROMBIN [id number] 05:33:00 Test Item Value Reference Range Interpretation Comments PROTIME (BEAKER) (test code = 15.7 seconds 11.7-14.7 H 759) INR (BEAKER) (test code = 370) 1.3 <=5.9 RECOMMENDED COUMADIN/WARFARIN INR THERAPY RANGESSTANDARD DOSE: 2.0 - 3.0 Includes: PROPHYLAXIS forvenous thrombosis, systemic embolization; TREATMENT for venous thrombosis and/or pulmonary embolus.HIGH RISK: Target INR is 2.5-3.5 for patients with mechanical heart valves.BLOOD GAS, [id number] 05:31:00 Test Item Value Reference Range Interpretation [...] 60.0 % CBC W/PLT COUNT & AUTO [id number] 05:08:00 Test Item Value Reference Range Interpretation [...] (BEAKER) (test code = 2801) BLOOD BANK [id number] 17:22:00 Test Item Value Reference Range Interpretation Comments RBC product (test code Product available = RBC product) (04/04/16 11:22 AM) [facility] [id number] 17:20:00 Test Item Value Reference Range Interpretation Comments ABO/Rh (test code = ABO/Rh) B [facility] [id number] 17:20:00 Test Item Value Reference Range Interpretation Comments Antibody Scrn (test Negative (04/04/16 code = Antibody Scrn) 11:20 AM) [facility] AND [id number] 07:08:00 Test Item Value Reference Range Interpretation Comments UA Urobilinogen (test code = UA <=1.0 mg/dL 0.1-1.0 Urobilinogen) [facility] AND [id number] 07:08:00 Test Item Value Reference Range Interpretation Comments UA RBC (test code = 1 See_Comment [Automa meet message] The UA RBC) system which ge nerated this result transmit meet reference range : <=2. The reference range was not used to interpr et this result as reggie l/abnormal. [facility] AND [id number] 07:08:00 Test Item Value Reference Range Interpretation Comments UA WBC (test code = 3 See_Comment [Automa meet message] The UA WBC) system which ge nerated this result transmit meet reference range : <=5. The reference range was not used to interpr et this result as reggie l/abnormal. [facility] AND [id number] 07:08:00 Test Item Value Reference Range Interpretation Comments UA Sq Epi (test code = UA Sq Epi) [facility] [id number] 07:08:00 Test Item Value Reference Range Interpretation Comments UA Mucus (test code = UA Mucus) [facility] [id number] 07:08:00 Test Item Value Reference Range Interpretation Comments UA Leuk Est (test Negative (03/14/16 2:08 code = UA Leuk Est) AM) [facility] AND [id number] 07:08:00 Test Item Value Reference Range Interpretation Comments UA Protein (test code = UA Negative mg/dL Protein) [facility] AND [id number] 07:08:00 Test Item Value Reference Range Interpretation Comments UA pH (test code = UA pH) 5.0 5.0-8.0 [facility] AND [id number] 07:08:00 Test Item Value Reference Range Interpretation Comments UA Spec Grav (test code = UA Spec Grav) 1.009 [facility] AND [id number] 07:08:00 Test Item Value Reference Range Interpretation Comments UA Turbidity (test code = Clear (03/14/16 2:08 UA Turbidity) AM) [facility] AND [id number] 07:08:00 Test Item Value Reference Range Interpretation Comments UA Ketones (test code = UA Negative mg/dL Ketones) [facility] AND [id number] 07:08:00 Test Item Value Reference Range Interpretation Comments UA Glucose (test code = UA Negative mg/dL Glucose) [facility] AND [id number] 07:08:00 Test Item Value Reference Range Interpretation Comments UA Color (test code = Yellow *NA*(03/14/16 UA Color) 2:08 AM) [facility] AND [id number] 07:08:00 Test Item Value Reference Range Interpretation Comments UA Nitrite (test code Negative (03/14/16 2:08 = UA Nitrite) AM) [facility] AND [id number] 07:08:00 Test Item Value Reference Range Interpretation Comments UA Blood (test code = Negative (03/14/16 2:08 UA Blood) AM) [facility] AND [id number] 07:08:00 Test Item Value Reference Range Interpretation Comments UA Bili (test code = Negative *NA*(03/14/16 UA Bili) 2:08 AM) [facility] [id number] 05:40:00 Test Item Value Reference Range Interpretation Comments Lactic Acid Lvl (test code = Lactic 0.8 0.5-2.2 Acid Lvl) [facility] [id number] 05:20:00 Test Item Value Reference Range Interpretation Comments Procalcitonin Lvl <0.05 ng/mL See_Comment [Automate d message] (test code = The system whic h Procalcitonin Lvl) generated this result transmit meet reference range : <=0.10. The reference range was not used to interpret this result as normal/abnormal . [facility] [id number] 02:07:00 Test Item Value Reference Range Interpretation Comments Lymphocytes # (test code = Lymphocytes 1.0 1.0-5.5 #) [id number] 02:07:00 Test Item Value Reference Range Interpretation Comments Monocytes # (test code 0.4 See_Comment [Aut omated message] The = Monocytes #) system which generated this result tra nsmitted reference range : <=0.8. The reference r lance was not used to int erpret this result as normal/abnormal . [facility] [id number] 02:07:00 Test Item Value Reference Range Interpretation Comments Eosinophils # (test code 0.1 See_Comment [A utomated message] The = Eosinophils #) system whic h generated this result tra nsmitted reference range : <=0.5. The reference r lance was not used to int erpret this result as normal/abnormal . [facility] [employer] [id number] 02:07:00 Test Item Value Reference Range Interpretation Comments Antibody Scrn (test Negative (03/13/16 code = Antibody Scrn) 9:07 PM) [facility] [employer] [id number] 02:07:00 Test Item Value Reference Range Interpretation Comments ABO/Rh (test code = ABO/Rh) B POS [facility] [employer] [id number] 02:07:00 Test Item Value Reference Range Interpretation Comments eGFR (test code = eGFR) 43 [facility] [employer] [id number] 02:07:00 Test Item Value Reference Range Interpretation Comments BUN (test code = BUN) 21 7-22 [facility] [employer] [id number] 02:07:00 Test Item Value Reference Range Interpretation Comments Creatinine Lvl (test code = Creatinine 1.79 0.50-1.40 Lvl) [facility] [employer] [id number] 02:07:00 Test Item Value Reference Range Interpretation Comments Alk Phos (test code = Alk Phos) 95 39-136 [facility] [employer] [id number] 02:07:00 Test Item Value Reference Range Interpretation Comments Bili Total (test code = Bili Total) 0.3 0.2-1.3 [facility] AllianceProte[facility] IndustriesCONE HE[facility] W[facility] LONG [id number] 02:07:00 Test Item Value Reference Range Interpretation Comments AST (test code = AST) 39 See_Comment [Auto mated message] The system which ge nerated this result transmit meet reference range : <=37. The reference range was not used to interpr et this result as reggie l/abnormal. [facility] [employer] [id number] 02:07:00 Test Item Value Reference Range Interpretation Comments ALT (test code = ALT) 59 See_Comment [Auto mated message] The system which ge nerated this result transmit meet reference range : <=65. The reference range was not used to interpr et this result as reggie l/abnormal. [facility] [employer] [id number] 02:07:00 Test Item Value Reference Range Interpretation Comments Sodium Lvl (test code = Sodium Lvl) 139 135-145 [facility] [employer] [id number] 02:07:00 Test Item Value Reference Range Interpretation Comments Total Protein (test code = Total 7.8 6.4-8.4 Protein) [facility] CenterAdBm Technologies [id number] 02:07:00 Test Item Value Reference Range Interpretation Comments Albumin Lvl (test code = Albumin Lvl) 2.5 3.5-5.0 [facility] [employer] [id number] 02:07:00 Test Item Value Reference Range Interpretation Comments Glucose Lvl (test code = Glucose Lvl) 120 70-99 [facility] [employer] [id number] 02:07:00 Test Item Value Reference Range Interpretation Comments Chloride Lvl (test code = Chloride Lvl) 106 95-109 [facility] [employer] [id number] 02:07:00 Test Item Value Reference Range Interpretation Comments CO2 (test code = CO2) 21 24-32 [facility] [employer] [id number] 02:07:00 Test Item Value Reference Range Interpretation Comments Calcium Lvl (test code = Calcium Lvl) 10.1 8.5-10.5 [facility] [employer] [id number] 02:07:00 Test Item Value Reference Range Interpretation Comments Potassium Lvl (test code = Potassium 3.3 3.5-5.1 Lvl) [facility] [employer] [id number] 02:07:00 Test Item Value Reference Range Interpretation Comments A/G Ratio (test code = A/G Ratio) 0.5 0.7-1.6 [facility]2016-10-18 02:07:00 Test Item Value Reference Range Interpretation Comments Globulin (test code = Globulin) 5.3 2.7-4.2 [facility]2016-10-18 02:07:00 Test Item Value Reference Range Interpretation Comments B/C Ratio (test code = B/C Ratio) 12 6-25 [facility]2016-10-18 02:07:00 Test Item Value Reference Range Interpretation Comments AGAP (test code = AGAP) 15.3 10.0-20.0 [facility] [id number] 02:07:00 Test Item Value Reference Range Interpretation Comments MPV (test code = MPV) 7.4 7.4-10.4 [facility] CenterZogpnfiJILOIGYYDT1871-30-07 02:07:00 Test Item Value Reference Range Interpretation Comments WBC (test code = WBC) 7.3 3.7-10.4 [facility] [id number] 02:07:00 Test Item Value Reference Range Interpretation Comments MCV (test code = MCV) 88.5 80.0-94.0 [facility] [id number] 02:07:00 Test Item Value Reference Range Interpretation Comments RBC (test code = RBC) 3.00 4.70-6.10 [facility] [id number] 02:07:00 Test Item Value Reference Range Interpretation Comments Hct (test code = Hct) 26.5 42.0-54.0 [facility] [id number] 02:07:00 Test Item Value Reference Range Interpretation Comments Hgb (test code = Hgb) 8.8 14.0-18.0 [facility] CenterEdkravdYKJGPSFEBC6462-53-95 02:07:00 Test Item Value Reference Range Interpretation Comments MCHC (test code = MCHC) 33.1 32.0-36.0 [facility] CenterNlqlfpiIJCSZDBJGU7634-60-35 02:07:00 Test Item Value Reference Range Interpretation Comments MCH (test code = MCH) 29.3 pg 27.0-31.0 [facility] Cent[id number] 02:07:00 Test Item Value Reference Range Interpretation Comments Platelet (test code = Platelet) 241 133-450 [facility] [id number] 02:07:00 Test Item Value Reference Range Interpretation Comments RDW (test code = RDW) 15.5 11.5-14.5 [facility] CenterFprgonkLQLHTZJRKJ2324-12-19 02:07:00 Test Item Value Reference Range Interpretation Comments Basophils # (test code 0.1 See_Comment [Aut omated message] The = Basophils #) system which generated this result tra nsmitted reference range : <=0.2. The reference r lance was not used to int erpret this result as normal/abnormal . [facility] CenterNnxcdroMRUXXPXGZM5513-18-15 02:07:00 Test Item Value Reference Range Interpretation Comments Lymphocytes (test code = Lymphocytes) 14.3 20.0-40.0 [facility] C[id number] 02:07:00 Test Item Value Reference Range Interpretation Comments Eosinophils (test code = 1.9 See_Comment [A utomated message] The Eosinophils) system which ge nerated this result tra nsmitted reference range : <=4.0. The reference r lance was not used to int erpret this result as normal/abnormal . [facility] C[id number] 02:07:00 Test Item Value Reference Range Interpretation Comments Segs (test code = Segs) 77.1 45.0-75.0 [facility] [id number] 02:07:00 Test Item Value Reference Range Interpretation Comments Monocytes (test code = Monocytes) 5.3 2.0-12.0 [facility] C[id number] 02:07:00 Test Item Value Reference Range Interpretation Comments Basophils (test code = 1.4 See_Comment [Aut omated message] The Basophils) system which ge nerated this result tra nsmitted reference range : <=1.0. The reference r lance was not used to int erpret this result as normal/abnormal . [facility] CenterGtuybgkMRMFCPEALI0400-56-63 02:07:00 Test Item Value Reference Range Interpretation Comments Segs-Bands # (test code = Segs-Bands #) 5.6 1.5-8.1 [facility]2016-09-21 09:04:00 Test Item Value Reference Range Interpretation Comments UIBC (test code = UIBC) 174 110-370 [facility]2016-09-21 09:04:00 Test Item Value Reference Range Interpretation Comments TIBC (test code = TIBC) 196 228-428 [facility]2016-09-21 09:04:00 Test Item Value Reference Range Interpretation Comments Iron (test code = Iron) 22 45-160 [facility]2016-09-21 09:04:00 Test Item Value Reference Range Interpretation Comments % Satur Fe (test code = % Satur Fe) 11 12-57 [facility]2016-09-20 15:50:00 Test Item Value Reference Range Interpretation Comments eGFR (test code = eGFR) 57 [facility]2016-09-20 15:50:00 Test Item Value Reference Range Interpretation Comments AGAP (test code = AGAP) 14.7 10.0-20.0 [facility]2016-09-20 15:50:00 Test Item Value Reference Range Interpretation Comments Calcium Lvl (test code = Calcium Lvl) 8.7 8.5-10.5 [facility]2016-09-20 15:50:00 Test Item Value Reference Range Interpretation Comments CO2 (test code = CO2) 24 24-32 [facility]2016-09-20 15:50:00 Test Item Value Reference Range Interpretation Comments Chloride Lvl (test code = Chloride Lvl) 99 95-109 [facility]2016-09-20 15:50:00 Test Item Value Reference Range Interpretation Comments Potassium Lvl (test code = Potassium 3.7 3.5-5.1 Lvl) [facility]2016-09-20 15:50:00 Test Item Value Reference Range Interpretation Comments BUN (test code = BUN) 16 7-22 [facility]2016-09-20 15:50:00 Test Item Value Reference Range Interpretation Comments Glucose Lvl (test code = Glucose Lvl) 128 70-99 [facility]2016-09-20 15:50:00 Test Item Value Reference Range Interpretation Comments Sodium Lvl (test code = Sodium Lvl) 134 135-145 [facility]2016-09-20 15:50:00 Test Item Value Reference Range Interpretation Comments Creatinine Lvl (test code = Creatinine 1.42 0.50-1.40 Lvl) [facility]2016-09-19 09:45:00 Test Item Value Reference Range Interpretation Comments eGFR (test code = eGFR) 51 [facility]2016-09-19 09:45:00 Test Item Value Reference Range Interpretation Comments Bili Total (test code = Bili Total) 0.8 0.2-1.3 [place] [id number] 09:45:00 Test Item Value Reference Range Interpretation Comments ALT (test code = ALT) 25 See_Comment [Auto mated message] The system which ge nerated this result transmit meet reference range : <=65. The reference range was not used to interpr et this result as reggie l/abnormal. [facility]2016-09-19 09:45:00 Test Item Value Reference Range Interpretation Comments AST (test code = AST) 15 See_Comment [Auto mated message] The system which ge nerated this result transmit meet reference range : <=37. The reference range was not used to interpr et this result as reggie l/abnormal. [facility]2016-09-19 09:45:00 Test Item Value Reference Range Interpretation Comments Alk Phos (test code = Alk Phos) 62 39-136 [place] [id number] 09:45:00 Test Item Value Reference Range Interpretation Comments Globulin (test code = Globulin) 4.8 2.7-4.2 [place] 694246-09-19 09:45:00 Test Item Value Reference Range Interpretation Comments A/G Ratio (test code = A/G Ratio) 0.5 0.7-1.6 [place] 694246-09-19 09:45:00 Test Item Value Reference Range Interpretation Comments Calcium Lvl (test code = Calcium Lvl) 9.0 8.5-10.5 [place] 694246-09-19 09:45:00 Test Item Value Reference Range Interpretation Comments Glucose Lvl (test code = Glucose Lvl) 109 70-99 [facility]2016-09-19 09:45:00 Test Item Value Reference Range Interpretation Comments CO2 (test code = CO2) 24 24-32 [place] 694246-09-19 09:45:00 Test Item Value Reference Range Interpretation Comments Chloride Lvl (test code = Chloride Lvl) 101 95-109 [facility]2016-09-19 09:45:00 Test Item Value Reference Range Interpretation Comments BUN (test code = BUN) 17 7-22 [facility]2016-09-19 09:45:00 Test Item Value Reference Range Interpretation Comments Potassium Lvl (test code = Potassium 4.1 3.5-5.1 Lvl) [facility]2016-09-19 09:45:00 Test Item Value Reference Range Interpretation Comments AGAP (test code = AGAP) 14.1 10.0-20.0 [place] 694246-09-19 09:45:00 Test Item Value Reference Range Interpretation Comments Albumin Lvl (test code = Albumin Lvl) 2.3 3.5-5.0 [facility]2016-09-19 09:45:00 Test Item Value Reference Range Interpretation Comments Total Protein (test code = Total 7.1 6.4-8.4 Protein) [facility]2016-09-19 09:45:00 Test Item Value Reference Range Interpretation Comments Creatinine Lvl (test code = Creatinine 1.55 0.50-1.40 Lvl) [facility]2016-09-19 09:45:00 Test Item Value Reference Range Interpretation Comments Sodium Lvl (test code = Sodium Lvl) 135 135-145 [facility]2016-09-19 09:45:00 Test Item Value Reference Range Interpretation Comments B/C Ratio (test code = B/C Ratio) 11 6-25 [facility] CenterGkaibkdFEYQPLYEEG2820-44-16 09:45:00 Test Item Value Reference Range Interpretation Comments MPV (test code = MPV) 7.7 7.4-10.4 [place] 680606-09-19 09:45:00 Test Item Value Reference Range Interpretation Comments Hct (test code = Hct) 25.4 42.0-54.0 [facility] CenterJbbaitoYAQFKJRCYP2208-24-15 09:45:00 Test Item Value Reference Range Interpretation Comments MCH (test code = MCH) 32.7 pg 27.0-31.0 [facility] CenterHqqbiqwEKKHKKZFJS7398-98-17 09:45:00 Test Item Value Reference Range Interpretation Comments MCV (test code = MCV) 96.6 80.0-94.0 [place] 680606-09-19 09:45:00 Test Item Value Reference Range Interpretation Comments Platelet (test code = Platelet) 296 133-450 [facility] CenterQnbvjzlBEKAXYKPGT6829-12-07 09:45:00 Test Item Value Reference Range Interpretation Comments RDW (test code = RDW) 14.7 11.5-14.5 [facility] CenterDqsmdhmDXTKPRVKXD4724-99-33 09:45:00 Test Item Value Reference Range Interpretation Comments MCHC (test code = MCHC) 33.8 32.0-36.0 [facility] CenterIwttuwcVJPATVEUAS1195-65-44 09:45:00 Test Item Value Reference Range Interpretation Comments WBC (test code = WBC) 8.4 3.7-10.4 [facility] CenterQojcsfsZZGPCBAZOK8999-17-68 09:45:00 Test Item Value Reference Range Interpretation Comments Hgb (test code = Hgb) 8.6 14.0-18.0 [facility] CenterWapozuaLIERVCHOQO8718-88-35 09:45:00 Test Item Value Reference Range Interpretation Comments RBC (test code = RBC) 2.63 4.70-6.10 [facility] CenterSctzhkmLMAZFZOYOR9118-10-29 09:45:00 Test Item Value Reference Range Interpretation Comments Lymphocytes # (test code = Lymphocytes 1.5 1.0-5.5 #) [facility] CenterUvuyuliKOLONTHOFI9880-87-95 09:45:00 Test Item Value Reference Range Interpretation Comments Eosinophils # (test code 0.2 See_Comment [A utomated message] The = Eosinophils #) system whic h generated this result tra nsmitted reference range : <=0.5. The reference r lance was not used to int erpret this result as normal/abnormal . [facility] CenterUjwdaltHCACKUBTNS7544-71-09 09:45:00 Test Item Value Reference Range Interpretation Comments Monocytes # (test code 0.8 See_Comment [Aut omated message] The = Monocytes #) system which generated this result tra nsmitted reference range : <=0.8. The reference r lance was not used to int erpret this result as normal/abnormal . [facility] CenterSukmfqhSJEOYXIWXL6935-14-61 09:45:00 Test Item Value Reference Range Interpretation Comments Basophils # (test code 0.1 See_Comment [Aut omated message] The = Basophils #) system which generated this result tra nsmitted reference range : <=0.2. The reference r lance was not used to int erpret this result as normal/abnormal . [facility] CenterDchhfqdWBOOJLIZJH9116-32-97 09:45:00 Test Item Value Reference Range Interpretation Comments Monocytes (test code = Monocytes) 9.9 2.0-12.0 [facility] CenterPtytiavTIVZDJQEHY0690-86-27 09:45:00 Test Item Value Reference Range Interpretation Comments Lymphocytes (test code = Lymphocytes) 17.2 20.0-40.0 [facility] CenterLfcvrxeSUPJIQBCKD1110-49-36 09:45:00 Test Item Value Reference Range Interpretation Comments Segs (test code = Segs) 69.8 45.0-75.0 [facility] CenterVguwhjdCXWNPHZNRL9494-58-56 09:45:00 Test Item Value Reference Range Interpretation Comments Eosinophils (test code = 2.2 See_Comment [A utomated message] The Eosinophils) system which ge nerated this result tra nsmitted reference range : <=4.0. The reference r lance was not used to int erpret this result as normal/abnormal . [facility] CenterKucoryuDOPISUJCYD7537-26-78 09:45:00 Test Item Value Reference Range Interpretation Comments Segs-Bands # (test code = Segs-Bands #) 5.9 1.5-8.1 [facility] CenterKwulhfnCDVZKODSVK4003-13-24 09:45:00 Test Item Value Reference Range Interpretation Comments Basophils (test code = 0.9 See_Comment [Aut omated message] The Basophils) system which ge nerated this result tra nsmitted reference range : <=1.0. The reference r lance was not used to int erpret this result as normal/abnormal . [place] [id number] 09:45:00 Test Item Value Reference Range Interpretation Comments Vanco Tr (test code = Vanco Tr) 14.8 [place] [id number] 09:45:00 Test Item Value Reference Range Interpretation Comments Vanco Tr TND (test code = Vanco Tr TND) TBD [facility]2016-09-18 09:54:00 Test Item Value Reference Range Interpretation Comments Total Protein (test code = Total 6.3 6.4-8.4 Protein) [facility]2016-09-18 09:54:00 Test Item Value Reference Range Interpretation Comments A/G Ratio (test code = A/G Ratio) 0.7 0.7-1.6 [place] 694246-09-18 09:54:00 Test Item Value Reference Range Interpretation Comments B/C Ratio (test code = B/C Ratio) 12 6-25 [place] 694246-09-18 09:54:00 Test Item Value Reference Range Interpretation Comments Globulin (test code = Globulin) 3.8 2.7-4.2 [place] 694246-09-18 09:54:00 Test Item Value Reference Range Interpretation Comments AST (test code = AST) 12 See_Comment [Auto mated message] The system which ge nerated this result transmit meet reference range : <=37. The reference range was not used to interpr et this result as reggie l/abnormal. [facility]2016-09-18 09:54:00 Test Item Value Reference Range Interpretation Comments Alk Phos (test code = Alk Phos) 61 39-136 [facility]2016-09-18 09:54:00 Test Item Value Reference Range Interpretation Comments Albumin Lvl (test code = Albumin Lvl) 2.5 3.5-5.0 [facility]2016-09-18 09:54:00 Test Item Value Reference Range Interpretation Comments ALT (test code = ALT) 26 See_Comment [Auto mated message] The system which ge nerated this result transmit meet reference range : <=65. The reference range was not used to interpr et this result as reggie l/abnormal. [facility]2016-09-18 09:54:00 Test Item Value Reference Range Interpretation Comments Bili Total (test code = Bili Total) 0.4 0.2-1.3 [place] 694246-09-18 09:54:00 Test Item Value Reference Range Interpretation Comments AGAP (test code = AGAP) 13.5 10.0-20.0 [place] 694246-09-18 09:54:00 Test Item Value Reference Range Interpretation Comments eGFR (test code = eGFR) 57 [facility]2016-09-18 09:54:00 Test Item Value Reference Range Interpretation Comments CO2 (test code = CO2) 27 24-32 [place] 694246-09-18 09:54:00 Test Item Value Reference Range Interpretation Comments Calcium Lvl (test code = Calcium Lvl) 8.7 8.5-10.5 [facility]2016-09-18 09:54:00 Test Item Value Reference Range Interpretation Comments Chloride Lvl (test code = Chloride Lvl) 100 95-109 [facility]2016-09-18 09:54:00 Test Item Value Reference Range Interpretation Comments Potassium Lvl (test code = Potassium 4.5 3.5-5.1 Lvl) [facility]2016-09-18 09:54:00 Test Item Value Reference Range Interpretation Comments Creatinine Lvl (test code = Creatinine 1.42 0.50-1.40 Lvl) [facility]2016-09-18 09:54:00 Test Item Value Reference Range Interpretation Comments Sodium Lvl (test code = Sodium Lvl) 136 135-145 [facility]2016-09-18 09:54:00 Test Item Value Reference Range Interpretation Comments Glucose Lvl (test code = Glucose Lvl) 105 70-99 [facility]2016-09-18 09:54:00 Test Item Value Reference Range Interpretation Comments BUN (test code = BUN) 17 7-22 [place] [id number] 09:54:00 Test Item Value Reference Range Interpretation Comments Lorenzoo Tr TND (test code = Vanco Tr TND) TBD [place] [id number] 09:54:00 Test Item Value Reference Range Interpretation Comments Vanco Tr (test code = Vanco Tr) 9.3 [facility]2016-09-17 17:04:00 Test Item Value Reference Range Interpretation Comments Phosphorus (test code = Phosphorus) 4.9 2.5-4.5 [facility]2016-09-17 17:04:00 Test Item Value Reference Range Interpretation Comments Magnesium Lvl (test code = Magnesium 1.8 1.8-2.4 Lvl) [facility]KcatzeyQCPNTOBPAR5688-62-82 17:04:00 Test Item Value Reference Range Interpretation Comments Segs (test code = Segs) 70.5 45.0-75.0 [facility] CenterMwbbmnjVIPGMJAZEZ5910-65-16 17:04:00 Test Item Value Reference Range Interpretation Comments Lymphocytes (test code = Lymphocytes) 18.0 20.0-40.0 [facility] CenterDgmmhqfZVRZLJOVKH0258-39-73 17:04:00 Test Item Value Reference Range Interpretation Comments Monocytes (test code = Monocytes) 9.7 2.0-12.0 [facility] CenterBjriumkTPUWKOEGAC5518-62-79 17:04:00 Test Item Value Reference Range Interpretation Comments Segs-Bands # (test code = Segs-Bands #) 6.4 1.5-8.1 [facility] CenterNpasgemVUQCKGGGTK8910-92-04 17:04:00 Test Item Value Reference Range Interpretation Comments Lymphocytes # (test code = Lymphocytes 1.6 1.0-5.5 #) [facility] CenterXlegecvJUVCZDJAAD7005-33-77 17:04:00 Test Item Value Reference Range Interpretation Comments Basophils (test code = 0.5 See_Comment [Aut omated message] The Basophils) system which ge nerated this result tra nsmitted reference range : <=1.0. The reference r lance was not used to int erpret this result as normal/abnormal . [facility] CenterYlaxaiqUUKMNSYUHD1129-78-47 17:04:00 Test Item Value Reference Range Interpretation Comments Eosinophils (test code = 1.3 See_Comment [A utomated message] The Eosinophils) system which ge nerated this result tra nsmitted reference range : <=4.0. The reference r lance was not used to int erpret this result as normal/abnormal . [facility] CenterMunxvviWVFMXSTWBW8204-59-51 17:04:00 Test Item Value Reference Range Interpretation Comments Monocytes # (test code 0.9 See_Comment [Aut omated message] The = Monocytes #) system which generated this result tra nsmitted reference range : <=0.8. The reference r lance was not used to int erpret this result as normal/abnormal . [facility] CenterMshujhpMSXVJFFJTE5775-61-06 17:04:00 Test Item Value Reference Range Interpretation Comments Eosinophils # (test code 0.1 See_Comment [A utomated message] The = Eosinophils #) system ic h generated this result tra nsmitted reference range : <=0.5. The reference r lance was not used to int erpret this result as normal/abnormal . [facility] CenterXkpanxpJQWIVQTEJR1213-08-69 17:04:00 Test Item Value Reference Range Interpretation Comments Platelet (test code = Platelet) 307 672-450 [facility] CenterWwljrpfUSRMPKUSID8421-99-20 17:04:00 Test Item Value Reference Range Interpretation Comments MPV (test code = MPV) 6.9 7.4-10.4 [facility] CenterVxilkncQWTTYFCUAZ0283-80-68 17:04:00 Test Item Value Reference Range Interpretation Comments MCHC (test code = MCHC) 33.9 32.0-36.0 [facility] CenterYdgvrczUHNKKJTEUZ5606-97-80 17:04:00 Test Item Value Reference Range Interpretation Comments RDW (test code = RDW) 15.1 11.5-14.5 [facility] CenterWhzyumsZLJPELDMIR1208-41-68 17:04:00 Test Item Value Reference Range Interpretation Comments RBC (test code = RBC) 2.69 4.70-6.10 [facility] CenterSbntmhuFOPBDGZFHT6522-19-80 17:04:00 Test Item Value Reference Range Interpretation Comments MCV (test code = MCV) 96.5 80.0-94.0 [facility] CenterNglimunQFKWNFFVRT2966-62-23 17:04:00 Test Item Value Reference Range Interpretation Comments WBC (test code = WBC) 9.1 3.7-10.4 [facility] CenterObdxdrbDEMDPEWDNF8161-47-67 17:04:00 Test Item Value Reference Range Interpretation Comments Hgb (test code = Hgb) 8.8 14.0-18.0 [facility] CenterYhjzxrtWZTHRNGYWT2256-62-16 17:04:00 Test Item Value Reference Range Interpretation Comments Hct (test code = Hct) 26.0 42.0-54.0 [facility] CenterAobwcvcOKJVCIBXUV2266-09-51 17:04:00 Test Item Value Reference Range Interpretation Comments MCH (test code = MCH) 32.7 pg 27.0-31.0 [facility] CenterLnvrsjpHIUZXKBGTL4314-69-52 08:18:00 Test Item Value Reference Range Interpretation Comments Segs-Bands # (test code = Segs-Bands #) 7.7 1.5-8.1 [facility] CenterHvmzaagATMSMHAZND8856-75-54 08:18:00 Test Item Value Reference Range Interpretation Comments Basophils (test code = 1.5 See_Comment [Aut omated message] The Basophils) system which ge nerated this result tra nsmitted reference range : <=1.0. The reference r lance was not used to int erpret this result as normal/abnormal . [facility] CenterSujlxrjXVHJFEHFPA6115-47-29 08:18:00 Test Item Value Reference Range Interpretation Comments Basophils # (test code 0.2 See_Comment [Aut omated message] The = Basophils #) system which generated this result tra nsmitted reference range : <=0.2. The reference r lance was not used to int erpret this result as normal/abnormal . [facility] CenterDsaxwieCXMBDLTQBI3457-76-07 08:18:00 Test Item Value Reference Range Interpretation Comments Eosinophils # (test code 0.2 See_Comment [A utomated message] The = Eosinophils #) system whic h generated this result tra nsmitted reference range : <=0.5. The reference r lance was not used to int erpret this result as normal/abnormal . [facility] CenterIpgjciuXHJHFMXNIY1283-71-62 08:18:00 Test Item Value Reference Range Interpretation Comments Monocytes # (test code 1.2 See_Comment [Aut omated message] The = Monocytes #) system which generated this result tra nsmitted reference range : <=0.8. The reference r lance was not used to int erpret this result as normal/abnormal . [facility] CenterXmpfjieYSJLAZCQXS6564-65-01 08:18:00 Test Item Value Reference Range Interpretation Comments Segs (test code = Segs) 69.4 45.0-75.0 [facility] CenterBpfjrmdMHHNROZWYN4919-38-59 08:18:00 Test Item Value Reference Range Interpretation Comments Monocytes (test code = Monocytes) 10.5 2.0-12.0 [facility] CenterEqeamcaUIGOTVDCTN9730-14-01 08:18:00 Test Item Value Reference Range Interpretation Comments Eosinophils (test code = 1.6 See_Comment [A utomated message] The Eosinophils) system which ge nerated this result tra nsmitted reference range : <=4.0. The reference r lance was not used to int erpret this result as normal/abnormal . [facility] CenterSmfeuktBMAGVVCHYS5707-29-96 08:18:00 Test Item Value Reference Range Interpretation Comments Lymphocytes # (test code = Lymphocytes 1.9 1.0-5.5 #) [facility] CenterRqccuhhEUMCKASVGN9280-47-24 08:18:00 Test Item Value Reference Range Interpretation Comments Lymphocytes (test code = Lymphocytes) 17.0 20.0-40.0 [facility] CenterKisuwxsTSBEJIXUPO4932-05-30 08:18:00 Test Item Value Reference Range Interpretation Comments Hct (test code = Hct) 28.9 42.0-54.0 [facility] CenterSawzrxmMKYHJMHDEI0662-34-57 08:18:00 Test Item Value Reference Range Interpretation Comments MCHC (test code = MCHC) 33.6 32.0-36.0 [facility] CenterNvrbbduJQXYRYYIPE7644-28-43 08:18:00 Test Item Value Reference Range Interpretation Comments RDW (test code = RDW) 14.6 11.5-14.5 [facility] CenterPqnlmtfVBIDDOHIHX9443-55-14 08:18:00 Test Item Value Reference Range Interpretation Comments MCV (test code = MCV) 96.6 80.0-94.0 [facility] CenterDhdemwtIVPIGSONDH5555-48-06 08:18:00 Test Item Value Reference Range Interpretation Comments MCH (test code = MCH) 32.4 pg 27.0-31.0 [facility] CenterZqqraajFEZCEYAOQE2812-14-97 08:18:00 Test Item Value Reference Range Interpretation Comments Hgb (test code = Hgb) 9.7 14.0-18.0 [facility] CenterHcqkirvSMTRXWZEMJ4970-80-69 08:18:00 Test Item Value Reference Range Interpretation Comments WBC (test code = WBC) 11.1 3.7-10.4 [facility] CenterVoclculXSYGSGVUHS0149-40-19 08:18:00 Test Item Value Reference Range Interpretation Comments RBC (test code = RBC) 2.99 4.70-6.10 [facility] CenterPgvcfguYIUOBMZEQA6836-19-17 08:18:00 Test Item Value Reference Range Interpretation Comments Platelet (test code = Platelet) 360 133-450 [facility] CenterIskoqhdEGDDXWEOQW7227-04-52 08:18:00 Test Item Value Reference Range Interpretation Comments MPV (test code = MPV) 7.4 7.4-10.4 [place] [id number] 09:02:00 Test Item Value Reference Range Interpretation Comments Vanco Tr (test code = Vanco Tr) 10.9 [place] [id number] 09:02:00 Test Item Value Reference Range Interpretation Comments Vanco Tr TND (test code = Vanco Tr TND) TBD [facility] CenterKpbxvpxJISZUHBVOJ0348-69-81 08:14:00 Test Item Value Reference Range Interpretation Comments Basophils # (test code 0.1 See_Comment [Aut omated message] The = Basophils #) system which generated this result tra nsmitted reference range : <=0.2. The reference r lance was not used to int erpret this result as normal/abnormal . [facility]LrnsnloBZTOEZUKLK7726-48-36 08:14:00 Test Item Value Reference Range Interpretation Comments Vanco Lvl (test code = Vanco Lvl) 14.1 [facility] CenterKpyxhonFDUUYQJBCT8457-65-99 18:46:00 Test Item Value Reference Range Interpretation Comments Sed Rate (test code = no gt See_Comment [Auto mated message] The Sed Rate) system which ge nerated this result transmit meet reference range : <=15. The reference range was not used to interpr et this result as reggie l/abnormal. [facility] Allianceefw-suhl [id number] 10:38:00 Test Item Value Reference Range Interpretation Comments Antibody Scrn (test Negative (02/08/16 5:38 code = Antibody Scrn) AM) [facility] CenterKodkod BANK [id number] 10:38:00 Test Item Value Reference Range Interpretation Comments ABO/Rh (test code = ABO/Rh) B POS [facility] CenterCHEM [id number] 10:38:00 Test Item Value Reference Range Interpretation Comments Procalcitonin Lvl (test 0.11 See_Comment [Au tomated message] code = Procalcitonin Lvl) Th e system which generated this result transmitted ref erence range: <=0.10. The reference range was not used to interpr et this result as normal/abnormal . [facility] AllianceannURINE AND [id number] 05:36:00 Test Item Value Reference Range Interpretation Comments UA Sq Epi (test code = UA Sq Epi) None Seen [facility] AND [id number] 05:36:00 Test Item Value Reference Range Interpretation Comments UA Urobilinogen (test code = UA <=1.0 mg/dL 0.1-1.0 Urobilinogen) [facility] [id number] 05:36:00 Test Item Value Reference Range Interpretation Comments UA Leuk Est (test Negative (02/05/16 12:36 code = UA Leuk Est) AM) [facility] AND [id number] 05:36:00 Test Item Value Reference Range Interpretation Comments UA Bacteria (test code = UA Occasional /HPF Bacteria) [facility] AND [id number] 05:36:00 Test Item Value Reference Range Interpretation Comments UA WBC (test code = 1 See_Comment [Automa meet message] The UA WBC) system which ge nerated this result transmit meet reference range : <=5. The reference range was not used to interpr et this result as reggie l/abnormal. [facility] AND [id number] 05:36:00 Test Item Value Reference Range Interpretation Comments UA Blood (test code = Negative (02/05/16 12:36 UA Blood) AM) [facility] AND [id number] 05:36:00 Test Item Value Reference Range Interpretation Comments UA Bili (test code = Negative *NA*(02/05/16 UA Bili) 12:36 AM) [facility] AND [id number] 05:36:00 Test Item Value Reference Range Interpretation Comments UA Nitrite (test code Negative (02/05/16 12:36 = UA Nitrite) AM) [facility] AND [id number] 05:36:00 Test Item Value Reference Range Interpretation Comments UA Glucose (test code = UA Negative mg/dL Glucose) [facility] AND [id number] 05:36:00 Test Item Value Reference Range Interpretation Comments UA Protein (test code = UA Negative mg/dL Protein) [facility] AND [id number] 05:36:00 Test Item Value Reference Range Interpretation Comments UA Turbidity (test code = Clear (02/05/16 12:36 UA Turbidity) AM) [facility] AND [id number] 05:36:00 Test Item Value Reference Range Interpretation Comments UA pH (test code = UA pH) 6.0 5.0-8.0 [facility] AND [id number] 05:36:00 Test Item Value Reference Range Interpretation Comments UA Color (test code = Light Yellow UA Color) *NA*(02/05/16 12:36 AM) [facility] AND [id number] 05:36:00 Test Item Value Reference Range Interpretation Comments UA Ketones (test code = UA Negative mg/dL Ketones) [facility] AND [id number] 05:36:00 Test Item Value Reference Range Interpretation Comments UA Spec Grav (test code = UA Spec Grav) 1.006 [facility] AND [id number] 21:31:00 Test Item Value Reference Range Interpretation Comments UA Sq Epi (test code = UA Sq Epi) None Seen [facility] AND [id number] 21:31:00 Test Item Value Reference Range Interpretation Comments UA Urobilinogen (test code = UA <=1.0 mg/dL 0.1-1.0 Urobilinogen) [facility] AND [id number] 21:31:00 Test Item Value Reference Range Interpretation Comments UA Blood (test code = Negative (02/01/16 4:31 UA Blood) PM) [facility] AND [id number] 21:31:00 Test Item Value Reference Range Interpretation Comments UA Nitrite (test code Negative (02/01/16 4:31 = UA Nitrite) PM) [facility] AND [id number] 21:31:00 Test Item Value Reference Range Interpretation Comments UA Leuk Est (test Negative (02/01/16 4:31 code = UA Leuk Est) PM) [facility] AND [id number] 21:31:00 Test Item Value Reference Range Interpretation Comments UA WBC (test code = 1 See_Comment [Automa meet message] The UA WBC) system which ge nerated this result transmit meet reference range : <=5. The reference range was not used to interpr et this result as reggie l/abnormal. [facility] AND [id number] 21:31:00 Test Item Value Reference Range Interpretation Comments UA Hyal Cast (test 3 See_Comment [Automat ed message] The code = UA Hyal Cast) system which generated this result transmit meet reference range : <=2. The reference range was not used to interpr et this result as reggie l/abnormal. [facility] AND [id number] 21:31:00 Test Item Value Reference Range Interpretation Comments UA pH (test code = UA pH) 5.5 5.0-8.0 [facility] AND [id number] 21:31:00 Test Item Value Reference Range Interpretation Comments UA Glucose (test code = UA Negative mg/dL Glucose) [facility] AND [id number] 21:31:00 Test Item Value Reference Range Interpretation Comments UA Ketones (test code = UA Negative mg/dL Ketones) [facility] AND [id number] 21:31:00 Test Item Value Reference Range Interpretation Comments UA Bili (test code = Negative *NA*(02/01/16 UA Bili) 4:31 PM) [facility] AND [id number] 21:31:00 Test Item Value Reference Range Interpretation Comments UA Protein (test code = UA Negative mg/dL Protein) [facility] AND [id number] 21:31:00 Test Item Value Reference Range Interpretation Comments UA Color (test code = Yellow *NA*(02/01/16 4:31 UA Color) PM) [facility] AND [id number] 21:31:00 Test Item Value Reference Range Interpretation Comments UA Turbidity (test code = Clear (02/01/16 4:31 UA Turbidity) PM) [facility] AND [id number] 21:31:00 Test Item Value Reference Range Interpretation Comments UA Spec Grav (test code = UA Spec Grav) 1.007 [facility] [id number] 21:31:00 Test Item Value Reference Range Interpretation Comments U Chloride (test code = U Chloride) 41 [facility] [id number] 21:31:00 Test Item Value Reference Range Interpretation Comments U Creatinine (test code = U Creatinine) 70.40 [facility] [id number] 21:31:00 Test Item Value Reference Range Interpretation Comments U Sodium (test code = U Sodium) 38 [facility]CARD[facility] [id number] 20:44:00 Test Item Value Reference Range Interpretation Comments Troponin-I (test code no gt See_Comment [Auto mated message] The = Troponin-I) system which g enerated this result transmit meet reference range : <=0.40. The reference r lance was not used to interpr et this result as reggie l/abnormal. [facility]CHE[facility] [id number] 20:44:00 Test Item Value Reference Range Interpretation Comments Procalcitonin Lvl (test 0.13 See_Comment [Au tomated message] code = Procalcitonin Lvl) Th e system which generated this result transmitted ref erence range: <=0.10. The reference range was not used to interpr et this result as normal/abnormal . [facility]2016-09-05 20:44:00 Test Item Value Reference Range Interpretation Comments Lactic Acid Lvl (test code = Lactic 1.7 0.5-2.2 Acid Lvl) [facility]2016-09-05 20:44:00 Test Item Value Reference Range Interpretation Comments Bili Total (test code = Bili Total) 0.4 0.2-1.3 [facility]2016-09-05 20:44:00 Test Item Value Reference Range Interpretation Comments Total Protein (test code = Total 7.7 6.4-8.4 Protein) [facility]2016-09-05 20:44:00 Test Item Value Reference Range Interpretation Comments AST (test code = AST) 19 See_Comment [Auto mated message] The system which ge nerated this result transmit meet reference range : <=37. The reference range was not used to interpr et this result as reggie l/abnormal. [facility]2016-09-05 20:44:00 Test Item Value Reference Range Interpretation Comments ALT (test code = ALT) 23 See_Comment [Auto mated message] The system which ge nerated this result transmit meet reference range : <=65. The reference range was not used to interpr et this result as reggie l/abnormal. [facility]2016-09-05 20:44:00 Test Item Value Reference Range Interpretation Comments Alk Phos (test code = Alk Phos) 58 39-136 [facility]2016-09-05 20:44:00 Test Item Value Reference Range Interpretation Comments Albumin Lvl (test code = Albumin Lvl) 2.8 3.5-5.0 [facility]2016-09-05 20:44:00 Test Item Value Reference Range Interpretation Comments A/G Ratio (test code = A/G Ratio) 0.6 0.7-1.6 [place] [id number] 20:44:00 Test Item Value Reference Range Interpretation Comments Globulin (test code = Globulin) 4.9 2.7-4.2 [place] [id number] 20:44:00 Test Item Value Reference Range Interpretation Comments B/C Ratio (test code = B/C Ratio) 15 6-25 [facility] AllianceMcxroqqTJHPJLWMER7730-15-50 20:44:00 Test Item Value Reference Range Interpretation Comments PTT (test code = PTT) 42.4 s 22.9-35.8 [facility] AllianceRoumqdgCDVCDWEPEV0732-87-64 20:44:00 Test Item Value Reference Range Interpretation Comments PT (test code = PT) 14.6 s 12.0-14.7 [facility] AllianceIsiwlbwBYLVVIOPVK0863-50-58 20:44:00 Test Item Value Reference Range Interpretation Comments INR (test code = INR) 1.11 0.85-1.17 [facility] [id number] 05:00:00 Test Item Value Reference Range Interpretation Comments VLDL (test code = VLDL) 77 [facility] AllianceUaladexUGRURY8264-71-18 05:00:00 Test Item Value Reference Range Interpretation Comments HDL (test code = HDL) 29 [facility] AllianceNrudtmpJNEBVG4525-77-76 05:00:00 Test Item Value Reference Range Interpretation Comments Chol (test code = Chol) 222 [facility] AllianceFeqpnpdUQKRMP7962-46-40 05:00:00 Test Item Value Reference Range Interpretation Comments CHD Risk (test code = CHD Risk) 7.66 4.00-7.30 [facility] KjrphsuTHNQPN0607-81-89 05:00:00 Test Item Value Reference Range Interpretation Comments Trig (test code = Trig) 384 [facility] AllianceCsvegjqQNAGJG9894-47-41 05:00:00 Test Item Value Reference Range Interpretation Comments LDL (Calculated) (test code = LDL 116 (Calculated)) [facility] AllianceProteus IndustriesCARDIAC [id number] 04:23:00 Test Item Value Reference Range Interpretation Comments CK MB Index (test 0.8 See_Comment [Automate d message] The code = CK MB Index) system w [facility] generated this result transmit meet reference range : <=2.5. The reference range was not used to interpr et this result as reggie l/abnormal. [facility] [employer] NetworksannCARDIAC [id number] 04:23:00 Test Item Value Reference Range Interpretation Comments CK MB (test code = CK MB) 0.6 0.5-3.6 [facility] [employer] NetworksannCARDIAC [id number] 04:23:00 Test Item Value Reference Range Interpretation Comments Troponin-I (test code no gt See_Comment [Auto mated message] The = Troponin-I) system which g enerated this result transmit meet reference range : <=0.40. The reference r lance was not used to interpr et this result as reggie l/abnormal. [facility] [employer] NetworksannCARInsideSales.comAC [id number] 04:23:00 Test Item Value Reference Range Interpretation Comments Total CK (test code = Total CK) 76 12-191 [facility] AlliancedondeEsta™AC [id number] 00:27:00 Test Item Value Reference Range Interpretation Comments Troponin-I (test code no gt See_Comment [Auto mated message] The = Troponin-I) system which g enerated this result transmit meet reference range : <=0.40. The reference r lance was not used to interpr et this result as reggie l/abnormal. [facility] [employer] The[employer]AC [id number] 00:27:00 Test Item Value Reference Range Interpretation Comments Total CK (test code = Total CK) 89 12-191 [facility] AlliancedondeEsta™AC [id number] 00:27:00 Test Item Value Reference Range Interpretation Comments CK MB Index (test 1.0 See_Comment [Automate d message] The code = CK MB Index) system w [email or web address] generated this result transmit meet reference range : <=2.5. The reference range was not used to interpr et this result as reggie l/abnormal. [facility] BushidoCARInsideSales.comAC [id number] 00:27:00 Test Item Value Reference Range Interpretation Comments CK MB (test code = CK MB) 0.9 0.5-3.6 [facility] AllianceannTHYROID [id number] 00:27:00 Test Item Value Reference Range Interpretation Comments TSH (test code = TSH) 2.000 0.360-3.740 [facility] [employer] The[employer]AC [id number] 19:22:00 Test Item Value Reference Range Interpretation Comments CK MB Index (test 0.8 See_Comment [Automate d message] The code = CK MB Index) system w [email or web address] generated this result transmit meet reference range : <=2.5. The reference range was not used to interpr et this result as reggie l/abnormal. [facility] AlliancedondeEsta™ [id number] 19:22:00 Test Item Value Reference Range Interpretation Comments Troponin-I (test code no gt See_Comment [Auto mated message] The = Troponin-I) system which g enerated this result transmit meet reference range : <=0.40. The reference r lance was not used to interpr et this result as reggie l/abnormal. [facility] CenterEveryScape [id number] 19:22:00 Test Item Value Reference Range Interpretation Comments Total CK (test code = Total CK) 111 12-191 [facility] CenterEverySc[facility] [id number] 19:22:00 Test Item Value Reference Range Interpretation Comments CK MB (test code = CK MB) 0.9 0.5-3.6 [facility] [employer] [id number] 19:22:00 Test Item Value Reference Range Interpretation Comments eGFR (test code = eGFR) 70 [facility] AllianceNextivity [id number] 19:22:00 Test Item Value Reference Range Interpretation Comments Alk Phos (test code = Alk Phos) 87 39-136 [facility] [employer] [id number] 19:22:00 Test Item Value Reference Range Interpretation Comments AST (test code = AST) 23 See_Comment [Auto mated message] The system which ge nerated this result transmit meet reference range : <=37. The reference range was not used to interpr et this result as reggie l/abnormal. [facility] [employer]2015-09-21 19:22:00 Test Item Value Reference Range Interpretation Comments ALT (test code = ALT) 27 See_Comment [Auto mated message] The system which ge nerated this result transmit meet reference range : <=65. The reference range was not used to interpr et this result as reggie l/abnormal. [facility] [employer]2015-09-21 19:22:00 Test Item Value Reference Range Interpretation Comments Albumin Lvl (test code = Albumin Lvl) 3.4 3.5-5.0 [facility] All[id number] 19:22:00 Test Item Value Reference Range Interpretation Comments Total Protein (test code = Total 7.7 6.4-8.4 Protein) [facility] All[id number] 19:22:00 Test Item Value Reference Range Interpretation Comments A/G Ratio (test code = A/G Ratio) 0.8 0.7-1.6 [facility]2015-09-21 19:22:00 Test Item Value Reference Range Interpretation Comments Globulin (test code = Globulin) 4.3 2.0-4.0 [facility]2015-09-21 19:22:00 Test Item Value Reference Range Interpretation Comments B/C Ratio (test code = B/C Ratio) 6 6-25 [facility]2015-09-21 19:22:00 Test Item Value Reference Range Interpretation Comments AGAP (test code = AGAP) 11.8 10.0-20.0 [facility]2015-09-21 19:22:00 Test Item Value Reference Range Interpretation Comments Bili Total (test code = Bili Total) 0.4 0.2-1.3 [facility]2015-09-21 19:22:00 Test Item Value Reference Range Interpretation Comments Calcium Lvl (test code = Calcium Lvl) 9.2 8.5-10.5 [facility]2015-09-21 19:22:00 Test Item Value Reference Range Interpretation Comments CO2 (test code = CO2) 25 24-32 [facility]2015-09-21 19:22:00 Test Item Value Reference Range Interpretation Comments Glucose Lvl (test code = Glucose Lvl) 88 70-99 [facility]2015-09-21 19:22:00 Test Item Value Reference Range Interpretation Comments Chloride Lvl (test code = Chloride Lvl) 106 95-109 [facility]2015-09-21 19:22:00 Test Item Value Reference Range Interpretation Comments Potassium Lvl (test code = Potassium 4.8 3.5-5.1 Lvl) [facility]2015-09-21 19:22:00 Test Item Value Reference Range Interpretation Comments Sodium Lvl (test code = Sodium Lvl) 138 135-145 [facility]2015-09-21 19:22:00 Test Item Value Reference Range Interpretation Comments Creatinine Lvl (test code = Creatinine 1.2 0.5-1.4 Lvl) [facility]2015-09-21 19:22:00 Test Item Value Reference Range Interpretation Comments BUN (test code = BUN) 7 - [facility]2015-09-21 19:22:00 Test Item Value Reference Range Interpretation Comments Magnesium Lvl (test code = Magnesium 2.0 1.8-2.4 Lvl) [facility]InllydpORPZLOSFWB7251-56-19 19:22:00 Test Item Value Reference Range Interpretation Comments Eosinophils # (test code 0.4 See_Comment [A utomated message] The = Eosinophils #) system [facility] generated this result tra nsmitted reference range : <=0.5. The reference r lance was not used to int erpret this result as normal/abnormal . [facility] CenterHjuqaraFTYUDLKNEO4318-46-36 19:22:00 Test Item Value Reference Range Interpretation Comments Basophils # (test code 0.0 See_Comment [Aut omated message] The = Basophils #) system which generated this result tra nsmitted reference range : <=0.2. The reference r lance was not used to int erpret this result as normal/abnormal . [facility] CenterBjuvckbPNUYWGGYZE9864-25-53 19:22:00 Test Item Value Reference Range Interpretation Comments Segs-Bands # (test code = Segs-Bands #) 4.6 1.5-8.1 [facility] CenterShkdkixGRSKYJENYB0640-96-17 19:22:00 Test Item Value Reference Range Interpretation Comments Monocytes # (test code 0.8 See_Comment [Aut omated message] The = Monocytes #) system which generated this result tra nsmitted reference range : <=0.8. The reference r lance was not used to int erpret this result as normal/abnormal . [facility] CenterEbzvxgrTRYVQQOOTT3525-85-34 19:22:00 Test Item Value Reference Range Interpretation Comments Monocytes (test code = Monocytes) 10.3 2.0-12.0 [facility] CenterVzuobayOYCBSHHHAA6884-37-64 19:22:00 Test Item Value Reference Range Interpretation Comments Eosinophils (test code = 5.0 See_Comment [A utomated message] The Eosinophils) system which ge nerated this result tra nsmitted reference range : <=4.0. The reference r lance was not used to int erpret this result as normal/abnormal . [facility] CenterFnhjwdbATOBYSPTBD9524-66-74 19:22:00 Test Item Value Reference Range Interpretation Comments Basophils (test code = 0.4 See_Comment [Aut omated message] The Basophils) system which ge nerated this result tra nsmitted reference range : <=1.0. The reference r lance was not used to int erpret this result as normal/abnormal . [facility] CenterJaxhcunMMQYWFAZHP5382-54-41 19:22:00 Test Item Value Reference Range Interpretation Comments Lymphocytes (test code = Lymphocytes) 25.7 20.0-40.0 [facility] CenterZxxgpgkZGAMUDIBOG7227-76-28 19:22:00 Test Item Value Reference Range Interpretation Comments Lymphocytes # (test code = Lymphocytes 2.0 1.0-5.5 #) [facility] CenterSnvouvwXMRZSQNRWD3560-82-54 19:22:00 Test Item Value Reference Range Interpretation Comments Segs (test code = Segs) 58.6 45.0-75.0 [facility] CenterRvzxqkhFUXAOYOTGJ1344-33-57 19:22:00 Test Item Value Reference Range Interpretation Comments INR (test code = INR) 1.00 0.85-1.17 [facility] CenterGxlfmngNPEYMUCVJP0664-48-56 19:22:00 Test Item Value Reference Range Interpretation Comments PT (test code = PT) 13.5 s 12.0-14.7 [facility] CenterAnvadgiYVYJMXBBEK0277-02-86 19:22:00 Test Item Value Reference Range Interpretation Comments PTT (test code = PTT) 33.7 s 22.9-35.8 [facility] CenterQibyhgtXSIHBGCZJZ3083-30-95 19:22:00 Test Item Value Reference Range Interpretation Comments Platelet (test code = Platelet) 170 133-450 [facility] CenterBexmxytHKTADJFMNC4698-31-25 19:22:00 Test Item Value Reference Range Interpretation Comments WBC (test code = WBC) 7.8 3.7-10.4 [facility] CenterIgvgxleNTBNASWYKX1454-51-79 19:22:00 Test Item Value Reference Range Interpretation Comments MCH (test code = MCH) 33.3 pg 27.0-31.0 [facility] CenterBhxkazmDXFQTZJQGP8746-44-03 19:22:00 Test Item Value Reference Range Interpretation Comments RBC (test code = RBC) 4.62 4.70-6.10 [facility] CenterTatizyeINSYWSQUKX7255-72-40 19:22:00 Test Item Value Reference Range Interpretation Comments MCV (test code = MCV) 97.4 80.0-94.0 [facility] CenterSvrnuamRHTERYGDVY6351-82-10 19:22:00 Test Item Value Reference Range Interpretation Comments Hgb (test code = Hgb) 15.4 14.0-18.0 [facility] AllianceDtjquopMIAMZIMQKA3203-68-77 19:22:00 Test Item Value Reference Range Interpretation Comments Hct (test code = Hct) 45.0 42.0-54.0 [facility] AllianceWphgbsiTAIOKXISTK6913-44-33 19:22:00 Test Item Value Reference Range Interpretation Comments MCHC (test code = MCHC) 34.2 32.0-36.0 [facility] AllianceQqcvyohRWHGWZTIBB6564-62-33 19:22:00 Test Item Value Reference Range Interpretation Comments MPV (test code = MPV) 7.0 7.4-10.4 [facility] CcxqzdeTEUNTDOFPO7557-30-75 19:22:00 Test Item Value Reference Range Interpretation Comments RDW (test code = RDW) 16.0 11.5-14.5 [facility] AllianceannDRUG [id number] 20:10:00 Test Item Value Reference Range Interpretation Comments U Cocaine Scr (test Negative *NA*(01/23/15 code = U Cocaine Scr) 3:10 PM) [facility] AllianceannDRUG [id number] 20:10:00 Test Item Value Reference Range Interpretation Comments U Opiate Scr (test Negative *NA*(01/23/15 code = U Opiate Scr) 3:10 PM) [facility] [id number] 20:10:00 Test Item Value Reference Range Interpretation Comments U Cannab Scr (test Negative *NA*(01/23/15 code = U Cannab Scr) 3:10 PM) [facility] AllianceannDRUG [id number] 20:10:00 Test Item Value Reference Range Interpretation Comments U Phencyc Scr (test Negative *NA*(01/23/15 code = U Phencyc Scr) 3:10 PM) [facility]annDR[facility] [id number] 20:10:00 Test Item Value Reference Range Interpretation Comments UDS Note (test code = See Note (01/23/15 3:10 UDS Note) PM) [facility] AllianceannDRUG [id number] 20:10:00 Test Item Value Reference Range Interpretation Comments U Shoshana Scr (test code Negative *NA*(01/23/15 = U Shoshana Scr) 3:10 PM) [facility]annDR[facility] [id number] 20:10:00 Test Item Value Reference Range Interpretation Comments U Benzodia Scr (test Positive *ABN*(01/23/15 code = U Benzodia Scr) 3:10 PM) [facility] [id number] 20:10:00 Test Item Value Reference Range Interpretation Comments U Amph Scr (test code Negative *NA*(01/23/15 = U Amph Scr) 3:10 PM) [facility] [id number] 20:10:00 Test Item Value Reference Range Interpretation Comments UA Urobilinogen (test code = UA <=1.0 mg/dL 0.1-1.0 Urobilinogen) [facility] [id number] 20:10:00 Test Item Value Reference Range Interpretation Comments UA Glucose (test code = UA Negative mg/dL Glucose) [facility] [id number] 20:10:00 Test Item Value Reference Range Interpretation Comments UA Sq Epi (test code = UA Sq Epi) Few /LPF [facility] [id number] 20:10:00 Test Item Value Reference Range Interpretation Comments UA Leuk Est (test Negative (01/23/15 3:10 code = UA Leuk Est) PM) [facility] [id number] 20:10:00 Test Item Value Reference Range Interpretation Comments UA Nitrite (test code Negative (01/23/15 3:10 = UA Nitrite) PM) [facility] [id number] 20:10:00 Test Item Value Reference Range Interpretation Comments UA Bacteria (test code = UA Occasional /HPF Bacteria) [facility] [id number] 20:10:00 Test Item Value Reference Range Interpretation Comments UA RBC (test code = 3 See_Comment [Automa meet message] The UA RBC) system which ge nerated this result transmit meet reference range : <=2. The reference range was not used to interpr et this result as reggie l/abnormal. [facility]ann[facility] AND [id number] 20:10:00 Test Item Value Reference Range Interpretation Comments UA WBC (test code = no gt See_Comment [Automa meet message] The UA WBC) system which ge nerated this result transmit meet reference range : <=5. The reference range was not used to interpr et this result as reggie l/abnormal. [facility] [id number] 20:10:00 Test Item Value Reference Range Interpretation Comments UA Hyal Cast (test 5 See_Comment [Automat ed message] The code = UA Hyal Cast) system which generated this result transmit meet reference range : <=2. The reference range was not used to interpr et this result as reggie l/abnormal. [facility] AND [id number] 20:10:00 Test Item Value Reference Range Interpretation Comments UA Amorph Brisa (test code = Occasional /HPF UA Amorph Brisa) [facility] AND [id number] 20:10:00 Test Item Value Reference Range Interpretation Comments UA Mucus (test code = UA Mucus) Few /LPF [facility] AND [id number] 20:10:00 Test Item Value Reference Range Interpretation Comments UA Color (test code = Yellow *NA*(01/23/15 UA Color) 3:10 PM) [facility] AND [id number] 20:10:00 Test Item Value Reference Range Interpretation Comments UA Protein (test code = UA Protein) 200 mg/dL [facility] AND [id number] 20:10:00 Test Item Value Reference Range Interpretation Comments UA pH (test code = UA pH) 6.0 5.0-8.0 [facility] AND [id number] 20:10:00 Test Item Value Reference Range Interpretation Comments UA Spec Grav (test code = UA Spec Grav) 1.017 [facility] AND [id number] 20:10:00 Test Item Value Reference Range Interpretation Comments UA Turbidity (test code Slight *ABN*(01/23/15 = UA Turbidity) 3:10 PM) [facility] AND [id number] 20:10:00 Test Item Value Reference Range Interpretation Comments UA Blood (test code = Moderate *ABN*(01/23/15 UA Blood) 3:10 PM) [facility] AND [id number] 20:10:00 Test Item Value Reference Range Interpretation Comments UA Bili (test code = Negative *NA*(01/23/15 UA Bili) 3:10 PM) [facility] AND [id number] 20:10:00 Test Item Value Reference Range Interpretation Comments UA Ketones (test code = UA Trace mg/dL Ketones) [facility] [employer] AND [id number] 20:10:00 Test Item Value Reference Range Interpretation Comments UA Sperm (test code = UA Occasional /HPF Sperm) [facility] [id number] 19:55:00 Test Item Value Reference Range Interpretation Comments CK MB Index (test 0.7 See_Comment [Automate d message] The code = CK MB Index) system w [facility] generated this result transmit meet reference range : <=2.5. The reference range was not used to interpr et this result as reggie l/abnormal. [facility] AllianceannCARDIAC [id number] 19:55:00 Test Item Value Reference Range Interpretation Comments Troponin-I (test code no gt See_Comment [Auto mated message] The = Troponin-I) system which g enerated this result transmit meet reference range : <=0.40. The reference r lance was not used to interpr et this result as reggie l/abnormal. [facility] [employer]comAC [id number] 19:55:00 Test Item Value Reference Range Interpretation Comments Total CK (test code = Total CK) 170 12-191 [facility] [employer]CAR[employer]comAC [id number] 19:55:00 Test Item Value Reference Range Interpretation Comments CK MB (test code = CK MB) 1.2 0.5-3.6 [facility] [employer] [id number] 19:55:00 Test Item Value Reference Range Interpretation Comments eGFR (test code = eGFR) 54 [facility] [employer] [id number] 19:55:00 Test Item Value Reference Range Interpretation Comments A/G Ratio (test code = A/G Ratio) 1.0 0.7-1.6 [facility] [employer]ann[employer] [id number] 19:55:00 Test Item Value Reference Range Interpretation Comments AST (test code = AST) 23 See_Comment [Auto mated message] The system which ge nerated this result transmit meet reference range : <=37. The reference range was not used to interpr et this result as reggie l/abnormal. [facility] [employer] [id number] 19:55:00 Test Item Value Reference Range Interpretation Comments Albumin Lvl (test code = Albumin Lvl) 4.3 3.5-5.0 [facility] [employer] [id number] 19:55:00 Test Item Value Reference Range Interpretation Comments ALT (test code = ALT) 39 See_Comment [Auto mated message] The system which ge nerated this result transmit meet reference range : <=65. The reference range was not used to interpr et this result as reggie l/abnormal. [facility]2015-08-29 19:55:00 Test Item Value Reference Range Interpretation Comments Total Protein (test code = Total 8.8 6.4-8.4 Protein) [facility]2015-08-29 19:55:00 Test Item Value Reference Range Interpretation Comments Calcium Lvl (test code = Calcium Lvl) 9.3 8.5-10.5 [facility]2015-08-29 19:55:00 Test Item Value Reference Range Interpretation Comments AGAP (test code = AGAP) 20.5 10.0-20.0 [facility]2015-08-29 19:55:00 Test Item Value Reference Range Interpretation Comments Globulin (test code = Globulin) 4.5 2.0-4.0 [facility]2015-08-29 19:55:00 Test Item Value Reference Range Interpretation Comments B/C Ratio (test code = B/C Ratio) 10 6-25 [facility]2015-08-29 19:55:00 Test Item Value Reference Range Interpretation Comments Bili Total (test code = Bili Total) 0.5 0.2-1.3 [facility]2015-08-29 19:55:00 Test Item Value Reference Range Interpretation Comments Alk Phos (test code = Alk Phos) 88 39-136 [facility]2015-08-29 19:55:00 Test Item Value Reference Range Interpretation Comments Potassium Lvl (test code = Potassium 4.5 3.5-5.1 Lvl) [facility]2015-08-29 19:55:00 Test Item Value Reference Range Interpretation Comments Sodium Lvl (test code = Sodium Lvl) 139 135-145 [facility]2015-08-29 19:55:00 Test Item Value Reference Range Interpretation Comments CO2 (test code = CO2) 17 24-32 [facility]2015-08-29 19:55:00 Test Item Value Reference Range Interpretation Comments Chloride Lvl (test code = Chloride Lvl) 106 95-109 [facility]2015-08-29 19:55:00 Test Item Value Reference Range Interpretation Comments Glucose Lvl (test code = Glucose Lvl) 114 70-99 [facility]2015-08-29 19:55:00 Test Item Value Reference Range Interpretation Comments Creatinine Lvl (test code = Creatinine 1.5 0.5-1.4 Lvl) [facility]2015-08-29 19:55:00 Test Item Value Reference Range Interpretation Comments BUN (test code = BUN) 15 7-22 [facility] CenterAywayqsDUNNNHPCEW0537-73-07 19:55:00 Test Item Value Reference Range Interpretation Comments Segs (test code = Segs) 89.7 45.0-75.0 [place] [address]-08-29 19:55:00 Test Item Value Reference Range Interpretation Comments Segs-Bands # (test code = Segs-Bands #) 11.6 1.5-8.1 [place] [id number] 19:55:00 Test Item Value Reference Range Interpretation Comments Lymphocytes # (test code = Lymphocytes 0.8 1.0-5.5 #) [facility] CenterBvmmgrmFGJHOPCVPP0505-19-27 19:55:00 Test Item Value Reference Range Interpretation Comments Lymphocytes (test code = Lymphocytes) 6.5 20.0-40.0 [facility] CenterTkkcngqKEIYMCKRDV4516-12-08 19:55:00 Test Item Value Reference Range Interpretation Comments Monocytes (test code = Monocytes) 3.2 2.0-12.0 [facility] CenterFhfmcmkSVMLSSZJFS1556-16-51 19:55:00 Test Item Value Reference Range Interpretation Comments Monocytes # (test code 0.4 See_Comment [Aut omated message] The = Monocytes #) system which generated this result tra nsmitted reference range : <=0.8. The reference r lance was not used to int erpret this result as normal/abnormal . [facility] CenterGbuqewcWYTDTEJERP2577-84-56 19:55:00 Test Item Value Reference Range Interpretation Comments Eosinophils # (test code 0.0 See_Comment [A utomated message] The = Eosinophils #) system whic h generated this result tra nsmitted reference range : <=0.5. The reference r lance was not used to int erpret this result as normal/abnormal . [facility] CenterTdymmjeNTFBNSMCWT4222-83-76 19:55:00 Test Item Value Reference Range Interpretation Comments Basophils # (test code 0.1 See_Comment [Aut omated message] The = Basophils #) system which generated this result tra nsmitted reference range : <=0.2. The reference r lance was not used to int erpret this result as normal/abnormal . [facility] Cent[id number] 19:55:00 Test Item Value Reference Range Interpretation Comments Eosinophils (test code = 0.2 See_Comment [A utomated message] The Eosinophils) system which ge nerated this result tra nsmitted reference range : <=4.0. The reference r lance was not used to int erpret this result as normal/abnormal . [facility] CenterAfaxpmnGTZPFGTDCY6066-75-70 19:55:00 Test Item Value Reference Range Interpretation Comments Basophils (test code = 0.4 See_Comment [Aut omated message] The Basophils) system which ge nerated this result tra nsmitted reference range : <=1.0. The reference r lance was not used to int erpret this result as normal/abnormal . [facility] CenterEfncdztLNRTNSOLGS7094-70-18 19:55:00 Test Item Value Reference Range Interpretation Comments PT (test code = PT) 14.2 s 12.0-14.7 [facility] CenterZyobsakDYGCQDUQJZ4903-59-99 19:55:00 Test Item Value Reference Range Interpretation Comments INR (test code = INR) 1.07 0.85-1.17 [facility] CenterBctyycbZMLTGUEDGF6468-28-60 19:55:00 Test Item Value Reference Range Interpretation Comments PTT (test code = PTT) 31.2 s 22.9-35.8 [facility] CenterCaluzaaXDELTWMYZI7257-86-15 19:55:00 Test Item Value Reference Range Interpretation Comments MPV (test code = MPV) 8.3 7.4-10.4 [facility] CenterSzblacyBAVOMCTJEJ5976-68-18 19:55:00 Test Item Value Reference Range Interpretation Comments MCHC (test code = MCHC) 32.8 32.0-36.0 [facility] CenterPfrfpoeZLTOHLRXSK8697-71-93 19:55:00 Test Item Value Reference Range Interpretation Comments RDW (test code = RDW) 17.0 11.5-14.5 [facility] CenterDottvuaMOWZYWUSIR1589-29-11 19:55:00 Test Item Value Reference Range Interpretation Comments Platelet (test code = Platelet) 202 133-450 [facility] CenterSdcwtatOHMGQUNNYQ0939-55-76 19:55:00 Test Item Value Reference Range Interpretation Comments Hct (test code = Hct) 51.7 42.0-54.0 [facility] CenterAjuieeyRPIOLFJDML5449-65-69 19:55:00 Test Item Value Reference Range Interpretation Comments MCV (test code = MCV) 97.9 80.0-94.0 [facility] CenterEnfyiqyOGXSGPRYHR4388-01-62 19:55:00 Test Item Value Reference Range Interpretation Comments MCH (test code = MCH) 32.1 pg 27.0-31.0 [facility] CenterMyeajlaYYCQUBBQLC9991-38-32 19:55:00 Test Item Value Reference Range Interpretation Comments Hgb (test code = Hgb) 17.0 14.0-18.0 [facility] CenterNojymdeKXRXJCNJYL4729-64-62 19:55:00 Test Item Value Reference Range Interpretation Comments WBC (test code = WBC) 12.9 3.7-10.4 [facility] CenterZfxddoaVXEKWBEHMD7726-08-21 19:55:00 Test Item Value Reference Range Interpretation Comments RBC (test code = RBC) 5.28 4.70-6.10 [facility] CenterHnhwusvTUDDDQYZMD5114-47-47 19:55:00 Test Item Value Reference Range Interpretation Comments Etoh (%) (test code = Etoh (%)) no gt [facility] CenterFqoaqumNYKLMAQSRF7416-60-30 19:55:00 Test Item Value Reference Range Interpretation Comments Ethanol Lvl (test code = Ethanol Lvl) no gt [facility] CenterCHEM [id number] 17:07:00 Test Item Value Reference Range Interpretation Comments eGFR (test code = eGFR) 71 [facility] CenterCHEM [id number] 17:07:00 Test Item Value Reference Range Interpretation Comments Bili Total (test code = Bili Total) 0.3 0.2-1.3 [facility] CenterAdBm Technologies [id number] 17:07:00 Test Item Value Reference Range Interpretation Comments AST (test code = AST) 18 See_Comment [Auto mated message] The system which ge nerated this result transmit meet reference range : <=37. The reference range was not used to interpr et this result as reggie l/abnormal. [facility]2014-06-26 17:07:00 Test Item Value Reference Range Interpretation Comments Alk Phos (test code = Alk Phos) 88 39-136 [facility]2014-06-26 17:07:00 Test Item Value Reference Range Interpretation Comments ALT (test code = ALT) 36 See_Comment [Auto mated message] The system which ge nerated this result transmit meet reference range : <=65. The reference range was not used to interpr et this result as reggie l/abnormal. [facility]2014-06-26 17:07:00 Test Item Value Reference Range Interpretation Comments Albumin Lvl (test code = Albumin Lvl) 4.0 3.5-5.0 [facility]2014-06-26 17:07:00 Test Item Value Reference Range Interpretation Comments Total Protein (test code = Total 8.8 6.4-8.4 Protein) [facility]2014-06-26 17:07:00 Test Item Value Reference Range Interpretation Comments CO2 (test code = CO2) 22 24-32 [facility]2014-06-26 17:07:00 Test Item Value Reference Range Interpretation Comments Calcium Lvl (test code = Calcium Lvl) 9.5 8.5-10.5 [facility]2014-06-26 17:07:00 Test Item Value Reference Range Interpretation Comments Chloride Lvl (test code = Chloride Lvl) 103 95-109 [facility]2014-06-26 17:07:00 Test Item Value Reference Range Interpretation Comments Sodium Lvl (test code = Sodium Lvl) 135 135-145 [facility]2014-06-26 17:07:00 Test Item Value Reference Range Interpretation Comments Potassium Lvl (test code = Potassium 4.2 3.5-5.1 Lvl) [facility]2014-06-26 17:07:00 Test Item Value Reference Range Interpretation Comments Creatinine Lvl (test code = Creatinine 1.2 0.5-1.4 Lvl) [facility]2014-06-26 17:07:00 Test Item Value Reference Range Interpretation Comments Glucose Lvl (test code = Glucose Lvl) 110 70-99 [facility]2014-06-26 17:07:00 Test Item Value Reference Range Interpretation Comments BUN (test code = BUN) 7 7-22 [facility]2014-06-26 17:07:00 Test Item Value Reference Range Interpretation Comments Globulin (test code = Globulin) 4.8 2.0-4.0 [facility]2014-06-26 17:07:00 Test Item Value Reference Range Interpretation Comments A/G Ratio (test code = A/G Ratio) 0.8 0.7-1.6 [facility]2014-06-26 17:07:00 Test Item Value Reference Range Interpretation Comments B/C Ratio (test code = B/C Ratio) 6 6-25 [facility]2014-06-26 17:07:00 Test Item Value Reference Range Interpretation Comments AGAP (test code = AGAP) 14.2 10.0-20.0 [id number] 17:07:00 Test Item Value Reference Range Interpretation Comments Eosinophils (test code = 3.2 See_Comment [A utomated message] The Eosinophils) system which ge nerated this result tra nsmitted reference range : <=4.0. The reference r lance was not used to int erpret this result as normal/abnormal . [facility] CenterBisvujlKTZIVRFWKY0706-44-62 17:07:00 Test Item Value Reference Range Interpretation Comments Lymphocytes (test code = Lymphocytes) 16.7 20.0-40.0 [facility] CenterGixeguvCACXSNYVDT9291-69-35 17:07:00 Test Item Value Reference Range Interpretation Comments Monocytes (test code = Monocytes) 6.2 2.0-12.0 [facility] CenterFavpwxnWEZUNCQUID2444-13-85 17:07:00 Test Item Value Reference Range Interpretation Comments Segs (test code = Segs) 73.3 45.0-75.0 [facility] CenterCknjtfvTRSPYWCRTS0539-98-85 17:07:00 Test Item Value Reference Range Interpretation Comments Basophils (test code = 0.6 See_Comment [Aut omated message] The Basophils) system which ge nerated this result tra nsmitted reference range : <=1.0. The reference r lance was not used to int erpret this result as normal/abnormal . [facility] CenterIbbhcykGJBYSLYHYD7844-86-81 17:07:00 Test Item Value Reference Range Interpretation Comments Basophils # (test code 0.1 See_Comment [Aut omated message] The = Basophils #) system which generated this result tra nsmitted reference range : <=0.2. The reference r lance was not used to int erpret this result as normal/abnormal . [facility] CenterBvqgtobYXKZLEENVE9782-93-47 17:07:00 Test Item Value Reference Range Interpretation Comments Eosinophils # (test code 0.3 See_Comment [A utomated message] The = Eosinophils #) system whic h generated this result tra nsmitted reference range : <=0.5. The reference r lance was not used to int erpret this result as normal/abnormal . [facility] CenterWorqzttCRRPWGSLZD4606-35-37 17:07:00 Test Item Value Reference Range Interpretation Comments Monocytes # (test code 0.6 See_Comment [Aut omated message] The = Monocytes #) system which generated this result tra nsmitted reference range : <=0.8. The reference r lance was not used to int erpret this result as normal/abnormal . [facility] CenterFpjpkwoSSLZDGXTEY0599-05-30 17:07:00 Test Item Value Reference Range Interpretation Comments Lymphocytes # (test code = Lymphocytes 1.6 1.0-5.5 #) [facility] CenterShxzptcVJJMUAFHZF5626-53-38 17:07:00 Test Item Value Reference Range Interpretation Comments Segs-Bands # (test code = Segs-Bands #) 6.8 1.5-8.1 [facility] CenterTxazvsePHNNATECSA8626-71-83 17:07:00 Test Item Value Reference Range Interpretation Comments Platelet (test code = Platelet) 170 133-450 [facility] CenterXdlivnuAVFZXPXYKJ9735-06-06 17:07:00 Test Item Value Reference Range Interpretation Comments MPV (test code = MPV) 7.6 7.4-10.4 [facility] CenterUrhwedeMKWDWHAZCH1950-85-85 17:07:00 Test Item Value Reference Range Interpretation Comments MCHC (test code = MCHC) 33.8 32.0-36.0 [facility] CenterJqexviyCGEXDXIROR7241-84-16 17:07:00 Test Item Value Reference Range Interpretation Comments RDW (test code = RDW) 14.2 11.5-14.5 [facility] CenterOcuywwnPGMSNLRVRX7624-40-79 17:07:00 Test Item Value Reference Range Interpretation Comments MCH (test code = MCH) 33.1 pg 27.0-31.0 [facility]LzpfudmBRWEWOURSS4994-74-46 17:07:00 Test Item Value Reference Range Interpretation Comments MCV (test code = MCV) 97.9 80.0-94.0 [facility] CenterQliqrceFAAMGZNHGR1182-95-22 17:07:00 Test Item Value Reference Range Interpretation Comments Hgb (test code = Hgb) 14.2 14.0-18.0 [facility] CenterKzhecmkHZEDJQMVDB1624-78-59 17:07:00 Test Item Value Reference Range Interpretation Comments Hct (test code = Hct) 42.1 42.0-54.0 [facility] CenterGobwsboDPUCLVXAYG9951-40-07 17:07:00 Test Item Value Reference Range Interpretation Comments WBC (test code = WBC) 9.3 3.7-10.4 [facility] CenterXuecfkbPBIQFPLGCQ3980-22-22 17:07:00 Test Item Value Reference Range Interpretation Comments RBC (test code = RBC) 4.30 4.70-6.10 [facility] SouthVhzuffxYWYVSWCNAP7299-62-44 17:07:00 Test Item Value Reference Range Interpretation Comments Vanco Tr TND (test code = Vanco Tr unknown TND) [facility]JoeflkbANNIKHSAJB3778-62-03 17:07:00 Test Item Value Reference Range Interpretation Comments Vanco Tr (test code = Vanco Tr) 7.7 [facility] [id number] 19:25:00 Test Item Value Reference Range Interpretation Comments eGFR (test code = eGFR) 47 [facility] CDXKU1374-82-20 19:25:00 Test Item Value Reference Range Interpretation Comments Creatinine Lvl (test code = Creatinine 1.7 0.5-1.4 Lvl) [facility] [id number] 19:25:00 Test Item Value Reference Range Interpretation Comments BUN (test code = BUN) 14 7-22 [facility] AllianceRtwhpvlFDSBUCOWTBYU8490-20-94 19:25:00 Test Item Value Reference Range Interpretation Comments Potassium Lvl (test code = Potassium 4.3 3.5-5.1 Lvl) [facility] CenterOyhjnlgECYNTJSNNO6379-38-45 19:25:00 Test Item Value Reference Range Interpretation Comments Hct (test code = Hct) 36.8 42.0-54.0 [facility] CenterXajfisjFRPJPIWXIS7084-57-31 19:25:00 Test Item Value Reference Range Interpretation Comments MCV (test code = MCV) 97.6 80.0-94.0 [facility] CenterNypyldfYGEFSWBVZQ4801-16-03 19:25:00 Test Item Value Reference Range Interpretation Comments MCH (test code = MCH) 33.2 pg 27.0-31.0 [facility] CenterPjzmqdjXHISWYRUAF7415-91-27 19:25:00 Test Item Value Reference Range Interpretation Comments Hgb (test code = Hgb) 12.5 14.0-18.0 [facility] CenterRjqhyenDTHWLWFOCF1919-47-53 19:25:00 Test Item Value Reference Range Interpretation Comments WBC (test code = WBC) 7.7 3.7-10.4 [facility] CenterSdseelvDDOSBBYXEQ9227-07-97 19:25:00 Test Item Value Reference Range Interpretation Comments RBC (test code = RBC) 3.77 4.70-6.10 [facility] CenterJzhyzmeGHEQKCQRNN0230-92-08 19:25:00 Test Item Value Reference Range Interpretation Comments RDW (test code = RDW) 14.0 11.5-14.5 [facility] CenterVrykudpCFBCVKLFOY3008-30-30 19:25:00 Test Item Value Reference Range Interpretation Comments Platelet (test code = Platelet) 155 133-450 [facility] CenterFqembupKYFRCHQJAO6873-11-30 19:25:00 Test Item Value Reference Range Interpretation Comments MPV (test code = MPV) 7.7 7.4-10.4 [facility] CenterQhjoystZMUIOWTVCV7881-93-98 19:25:00 Test Item Value Reference Range Interpretation Comments MCHC (test code = MCHC) 34.0 32.0-36.0 [facility] CenterShpbpnbEONHBIHOUZ9545-36-61 19:25:00 Test Item Value Reference Range Interpretation Comments Segs-Bands # (test code = Segs-Bands #) 5.7 1.5-8.1 [facility] CenterFcwrtuxIKNOQSQHEN4489-44-69 19:25:00 Test Item Value Reference Range Interpretation Comments Eosinophils (test code = 4.3 See_Comment [A utomated message] The Eosinophils) system which ge nerated this result tra nsmitted reference range : <=4.0. The reference r lance was not used to int erpret this result as normal/abnormal . [facility] CenterVoimiekRVKTPALWXB4479-79-31 19:25:00 Test Item Value Reference Range Interpretation Comments Basophils # (test code 0.0 See_Comment [Aut omated message] The = Basophils #) system which generated this result tra nsmitted reference range : <=0.2. The reference r lance was not used to int erpret this result as normal/abnormal . [facility] CenterGhxycjtKYYOTELIZE8853-04-61 19:25:00 Test Item Value Reference Range Interpretation Comments Basophils (test code = 0.3 See_Comment [Aut omated message] The Basophils) system which ge nerated this result tra nsmitted reference range : <=1.0. The reference r lance was not used to int erpret this result as normal/abnormal . [facility] CenterIfuwwvlZPGDYRUHBE2624-68-26 19:25:00 Test Item Value Reference Range Interpretation Comments Monocytes (test code = Monocytes) 5.1 2.0-12.0 [facility] CenterAxuluixIEBNFZQIOC8065-33-59 19:25:00 Test Item Value Reference Range Interpretation Comments Lymphocytes (test code = Lymphocytes) 16.3 20.0-40.0 [facility] CenterWmwrgxbTKEXNHCQYI9805-18-77 19:25:00 Test Item Value Reference Range Interpretation Comments Lymphocytes # (test code = Lymphocytes 1.2 1.0-5.5 #) [facility] CenterXvjklbhQAKQPIUWNY9737-64-19 19:25:00 Test Item Value Reference Range Interpretation Comments Eosinophils # (test code 0.3 See_Comment [A utomated message] The = Eosinophils #) system [facility] h generated this result tra nsmitted reference range : <=0.5. The reference r lance was not used to int erpret this result as normal/abnormal . [facility] CenterSpgmopxWCSVXUGIKB8578-45-23 19:25:00 Test Item Value Reference Range Interpretation Comments Monocytes # (test code 0.4 See_Comment [Aut omated message] The = Monocytes #) system which generated this result tra nsmitted reference range : <=0.8. The reference r lance was not used to int erpret this result as normal/abnormal . [facility] CenterQfrarezRUKTPHPNAS7488-80-50 19:25:00 Test Item Value Reference Range Interpretation Comments Segs (test code = Segs) 74.0 45.0-75.0 [facility]entonNauwsecKNWPFCGHPL8788-48-14 19:25:00 Test Item Value Reference Range Interpretation Comments Vanco Tr TND (test code = Vanco Tr unknown TND) [facility]TgjtcrtZBRIXYNHCD3317-30-19 19:25:00 Test Item Value Reference Range Interpretation Comments Vanco Tr (test code = Vanco Tr) 24.4 [facility] [id number] 18:20:00 Test Item Value Reference Range Interpretation Comments eGFR (test code = eGFR) 54 [facility] [id number] 18:20:00 Test Item Value Reference Range Interpretation Comments Creatinine Lvl (test code = Creatinine 1.5 0.5-1.4 Lvl) [facility] [id number] 18:20:00 Test Item Value Reference Range Interpretation Comments BUN (test code = BUN) 11 7-22 [facility] AllianceGgbrwsyEAQQTXKNKATD8889-29-55 18:20:00 Test Item Value Reference Range Interpretation Comments Potassium Lvl (test code = Potassium 4.5 3.5-5.1 Lvl) [facility] CenterDrhejldDCEQRFQBDN7874-59-77 18:20:00 Test Item Value Reference Range Interpretation Comments MCH (test code = MCH) 32.7 pg 27.0-31.0 [facility] CenterNnouybvRJCNBGXZUR8659-01-69 18:20:00 Test Item Value Reference Range Interpretation Comments MCHC (test code = MCHC) 33.6 32.0-36.0 [facility] CenterFrfvmcjVLZSDDZSJV3763-92-85 18:20:00 Test Item Value Reference Range Interpretation Comments Platelet (test code = Platelet) 186 133-450 [facility] CenterLyczcuqRHAXLOTCBS9049-67-15 18:20:00 Test Item Value Reference Range Interpretation Comments RDW (test code = RDW) 14.0 11.5-14.5 [facility] CenterEpkaljdEBMKGUXNGD8667-81-64 18:20:00 Test Item Value Reference Range Interpretation Comments MPV (test code = MPV) 7.4 7.4-10.4 [facility] CenterRhemrvrTHHEDCLYSF6338-58-67 18:20:00 Test Item Value Reference Range Interpretation Comments Hgb (test code = Hgb) 12.2 14.0-18.0 [facility] CenterYqfodilESQZXLMWPO2770-28-18 18:20:00 Test Item Value Reference Range Interpretation Comments RBC (test code = RBC) 3.73 4.70-6.10 [facility] CenterWmxxskmVNGSMFYMPE1656-41-03 18:20:00 Test Item Value Reference Range Interpretation Comments MCV (test code = MCV) 97.6 80.0-94.0 [facility] CenterLmisprqPTGUDQXFEP2913-13-23 18:20:00 Test Item Value Reference Range Interpretation Comments Hct (test code = Hct) 36.4 42.0-54.0 [facility] CenterXebydtaPBTCNSOOJO9852-42-33 18:20:00 Test Item Value Reference Range Interpretation Comments WBC (test code = WBC) 9.7 3.7-10.4 [facility] CenterBucxlzpNWOUMPJZIC3132-67-68 18:20:00 Test Item Value Reference Range Interpretation Comments Basophils # (test code 0.1 See_Comment [Aut omated message] The = Basophils #) system which generated this result tra nsmitted reference range : <=0.2. The reference r lance was not used to int erpret this result as normal/abnormal . [facility] CenterZdgvmhxLZWPAJFHZQ2896-80-30 18:20:00 Test Item Value Reference Range Interpretation Comments Lymphocytes # (test code = Lymphocytes 2.0 1.0-5.5 #) [facility] CenterKiuyldsKHEGPPEPXU5008-71-59 18:20:00 Test Item Value Reference Range Interpretation Comments Monocytes # (test code 0.7 See_Comment [Aut omated message] The = Monocytes #) system which generated this result tra nsmitted reference range : <=0.8. The reference r lance was not used to int erpret this result as normal/abnormal . [facility] CenterZqfxefbWUWHTOKCJM9421-59-32 18:20:00 Test Item Value Reference Range Interpretation Comments Eosinophils # (test code 0.4 See_Comment [A utomated message] The = Eosinophils #) system whic h generated this result tra nsmitted reference range : <=0.5. The reference r lance was not used to int erpret this result as normal/abnormal . [facility] CenterXbjkhxtISBSOTGIGR2091-00-01 18:20:00 Test Item Value Reference Range Interpretation Comments Basophils (test code = 0.6 See_Comment [Aut omated message] The Basophils) system which ge nerated this result tra nsmitted reference range : <=1.0. The reference r lance was not used to int erpret this result as normal/abnormal . [facility] CenterIujpbayWZBFPSHEQP2535-50-48 18:20:00 Test Item Value Reference Range Interpretation Comments Segs-Bands # (test code = Segs-Bands #) 6.6 1.5-8.1 [facility] CenterIvjgfwvDVXWVLCYBF8102-94-72 18:20:00 Test Item Value Reference Range Interpretation Comments Lymphocytes (test code = Lymphocytes) 20.5 20.0-40.0 [facility] CenterFshaadcWUBGUBOYKY8664-07-76 18:20:00 Test Item Value Reference Range Interpretation Comments Monocytes (test code = Monocytes) 7.3 2.0-12.0 [facility] CenterZpmsaalLGDGARIPWC0767-80-25 18:20:00 Test Item Value Reference Range Interpretation Comments Eosinophils (test code = 3.7 See_Comment [A utomated message] The Eosinophils) system which ge nerated this result tra nsmitted reference range : <=4.0. The reference r lance was not used to int erpret this result as normal/abnormal . [facility] CenterXzrufctLKSXXMUFNQ8814-54-55 18:20:00 Test Item Value Reference Range Interpretation Comments Segs (test code = Segs) 67.9 45.0-75.0 [facility] SouthYynxpffBDNQCOXWCS8512-33-93 18:20:00 Test Item Value Reference Range Interpretation Comments Shankar Arredondo TND (test code = Lorenzoo Tr TND) NA [facility] SouthQusapvjYJXRPHPWNA2476-80-92 18:20:00 Test Item Value Reference Range Interpretation Comments Shankar Arredondo (test code = Vanco Tr) 24.1 [facility]
[2021-08-10 02:53] LABS: Urine Blood 1+ (Negative); Urine Glucose Negative (Negative); Urine Protein Negative (Negative); Urine Specific Gravity <=1.005 (1.005-1.030); Urine pH 5.5 (5.0-7.0)
[2021-08-10 03:15] LABS: Absolute Lymphocytes (CBC) 3.5 K/uL (0.7-4.9); Hematocrit 45.9 % (39.6-49.0); Lymphocytes % 40.9 % (15.3-44.8); MPV 7.6 fL (7.6-11.3); RBC Red Blood Cell Count 4.84 M/uL (4.33-5.43)
[2021-08-10] MEDS ORDERED: LEVETIRACETAM 500 MG/5 ML VIAL IV ONE (03:16)
[2021-08-10] MEDS ORDERED: NA CHLORIDE 0.9% 1,000 ML ONE (03:16)
[2021-08-10 03:17] LABS: Protime INR 0.96
[2021-08-10] MEDS ORDERED: NA CHLORIDE 0.9% 100 ML IV ONE (03:21)
[2021-08-10 03:22] LABS: Barbiturates NEGATIVE (NEGATIVE); Benzodiazepines NEGATIVE (NEGATIVE); Cocaine NEGATIVE (NEGATIVE); METHAMPHETAM NEGATIVE (NEGATIVE); Methadone NEGATIVE (NEGATIVE); Opiates NEGATIVE (NEGATIVE); Phencyclidine NEGATIVE (NEGATIVE); THC Cannibis NEGATIVE (NEGATIVE)
[2021-08-10 03:46] LABS: ALT/SGPT 33 U/L (12-78); AST/SGOT 23 U/L (15-37); Albumin 3.8 g/dL (3.4-5.0); Alkaline Phosphatase 95 U/L (45-117); BUN Blood Urea Nitrogen 12 mg/dL (7-18); Bicarbonate 22 mmol/L (21-32); Bilirubin Direct < 0.1 mg/dL (0-0.2); Bilirubin Total 0.2 mg/dL (0.2-1.0); Creatine Phosphokinase 200 U/L (39-308); Glucose Level 87 mg/dL (74-106); Potassium 4.1 mmol/L (3.5-5.1); Protein, Total 8.4 g/dL (6.4-8.2); Sodium Level 134 mmol/L (136-145)
--- NOTE | 2021-08-10 06:30 | ER ---
Nurse's Notes [facility] Name: Karlos Leblanc Age: 55 yrs Sex: Male : 1965 Arrival Date: 08/10/2021 Time: 02:35 Bed 17 Private MD: Diagnosis: Other seizures;Alcohol use, unspecified with intoxication;Chronic left anterior shoulder dislocation Presentation: 08/10 02:44 Chief complaint: EMS states: pt went to bed around 10pm, had a seizure at some point sm5 tonight. pt lives alone, unwitnessed seizure. complaining of back pain, abrasions to L arm. Coronavirus screen: At this time, the client does not indicate any symptoms associated with coronavirus-19. Ebola Screen: No symptoms or risks identified at this time. Initial Sepsis Screen: Does the patient meet any 2 criteria? No. Patient's initial sepsis screen is negative. Does the patient have a suspected source of infection? No. Patient's initial sepsis screen is negative. Risk Assessment: Do you want to hurt yourself or someone else? Patient reports no desire to harm self or others. Onset of symptoms was August 10, 2021. 02:44 Method Of Arrival: EMS: [facility] 02:44 Acuity: KENIA 3 sm5 Triage Assessment: 02:47 General: Appears in no apparent distress. Behavior is cooperative. Pain: Complains of sm5 pain in back. Neuro: No deficits noted. Level of Consciousness is awake, alert, obeys commands, Oriented to person, place, time, situation. Cardiovascular: No deficits noted. Capillary refill < 3 seconds Patient's skin is warm and dry. Respiratory: No deficits noted. Airway is patent Trachea midline Respiratory effort is even, unlabored. Injury Description: Abrasion sustained to left arm. Historical: - Allergies: 02:45 NKDA; sm5 - Home Meds: 02:45 gabapentin 100 mg Oral cap 2 caps 3 times per day [Active]; Keppra 100 mg/mL Oral soln sm5 [Active]; lisinopril 10 mg Oral tab 1 tab once daily [Active]; Percocet 2.5-325 mg Oral tab [Active]; - PMHx: 02:45 Hypertension; Seizures; sm5 - PSHx: 02:45 cardiac stents; sm5 - Immunization history:: Client reports receiving the 2nd dose of the Covid vaccine, Flu vaccine is up to date. - Social history:: Smoking status: Patient reports the use of cigarette tobacco products, Patient uses alcohol, on a daily basis. Screenin:46 Abuse screen: Denies threats or abuse. Denies injuries from another. Nutritional 5 screening: No deficits noted. Tuberculosis screening: No symptoms or risk factors identified. Fall Risk No fall in past 12 months (0 pts). Secondary diagnosis (15 points) seizures, IV access (20 points). Ambulatory Aid- None/Bed Rest/Nurse Assist (0 pts). Gait- Normal/Bed Rest/Wheelchair (0 pts) Mental Status- Oriented to own ability (0 pts). Total Mota Fall Scale indicates Low Risk Score (25-44 pts). Fall prevention measures have been instituted. Side Rails Up X 2 Placed close to Nursing Station Frequent Obs/Assesments occuring As available Patient and Family Educated on Fall Prevention Program and strategies. Assessment: 03:31 Reassessment: labs collected and sent. Keppra started. No new seizure activity noted. sv1 Strong smell of alcohol on his breath.. 05:05 Reassessment: Up to void. C/O back pain. CT results pending. sv1 06:42 Reassessment: All labs and imaging completed. The patient slept all night. No seizure sv1 activity noted. Cleared for discharge to home by the provider.. Vital Signs: 02:43 BP 152 / 73; Pulse 83; Resp 19; Temp 97.6(O); Pulse Ox 99% on R/A; Weight 82.1 kg; 5 Height 6 ft. 1 in. (185.42 cm); 03:58 BP 124 / 76 LA Supine (auto/reg); Pulse 74 MON; Resp 16 S; Pulse Ox 99% on R/A; sv1 04:56 BP 135 / 70 LA Supine (auto/reg); Pulse 88 MON; Resp 18 S; Pulse Ox 99% on R/A; sv1 06:41 BP 111 / 62 LA Supine (auto/reg); Pulse 88 MON; Resp 17 S; Temp 97.9; Pulse Ox 96% on sv1 R/A; 02:43 Body Mass Index 23.88 (82.10 kg, 185.42 cm) [facility] ED Course: 02:35 Patient arrived in ED. ds4 02:36 Celso Mccain MD is Attending Physician. mh7 02:38 Harish Camejo, TAVO is Primary Nurse. sv1 02:44 Inserted saline lock: 18 gauge in right forearm, using aseptic technique. Blood as6 collected. 02:45 Triage completed. sm5 02:46 Arm band placed on left wrist. sm5 02:47 Patient has correct armband on for positive identification. Bed in low position. Call sm5 light in reach. Side rails up X2. Seizure precautions initiated. program manager slp on. Pulse ox on. NIBP on. 03:08 CBC with Automated Diff Sent. sv1 03:08 Acetaminophen Level Sent. sv1 03:08 Acetaminophen Sent. sv1 03:08 Basic Metabolic Panel Sent. sv1 03:08 CBC with Diff Sent. sv1 03:09 ETOH Level Sent. sv1 03:09 Hepatic Function Sent. sv1 03:09 PT-INR Sent. sv1 03:09 Ptt, Activated Sent. sv1 03:09 Salicylate Sent. sv1 03:09 Urine Drug Screen Sent. sv1 04:36 CT Head C Spine In Process Unspecified. EDMS 04:36 CT Lumbar Spine Wo Con In Process Unspecified. EDMS 04:36 CT Thoracic Spine Wo Cont In Process Unspecified. EDMS 05:06 Troponin High Sensitivity Sent. sv1 06:28 Anibal Escobar MD is Referral Physician. 7 06:42 No provider procedures requiring assistance completed. IV discontinued. sv1 Administered Medications: 03:30 Drug: NS 0.9% 1000 ml Route: IV; Rate: 1000 ml; Site: right antecubital; sv1 03:30 Drug: Keppra (levETIRAcetam) 1000 mg Route: IV; Rate: per protocol; Site: right sv1 antecubital; 03:59 Follow up: Response: No adverse reaction; IV Status: Completed infusion sv1 Point of Care Testing: Blood Glucose: 02:48 Blood Glucose: 81 mg/dL; sm5 Ranges: Outcome: 06:29 Discharge ordered by . mh7 06:42 Discharged to home ambulatory, with family. sv1 06:42 Condition: improved 06:42 Discharge instructions given to patient. 06:59 Patient left the ED. sv1 Signatures: Dispatcher [employer] EDMS Fran Jacobo ds4 Celso Mccain MD MD mh7 Kishan Bates, RN RN as6 Leonila Agurire, TAVO RN sm5 Harish Camejo, RN RN sv1
--- NOTE | 2021-08-10 06:30 | EDPHYS ---
Physician Documentation [facility] Name: Karlos Leblanc Age: 55 yrs Sex: Male : 1965 Arrival Date: 08/10/2021 Time: 02:35 Bed 17 Private MD: TINY Physician Celso Mccain HPI: 08/10 02:53 This 55 yrs old Male presents to ER via EMS with complaints of Seizure. mh7 02:53 The patient presents after having a single isolated seizure, that lasted an unknown mh7 period of time. Character of seizure(s): Loss of consciousness: the patient experienced loss of consciousness, unknown, Motor activity: the motor activity is unknown, Incontinence: none, Apnea: the patient did not experience apnea, Circulation: the patient did not experience evidence of pulse disturbance, Eye movements: are unknown. Seizure onset: at 22:00. Context: the seizure(s) was witnessed, by no one, the downtime is unknown, occurred at home, occurred while the patient was standing, Contributing factors: recent alcohol abuse. Seizure Hx: Original onset: longstanding. Associated injury: Back: lumbar area. Current symptoms: Currently, the patient is not experiencing any symptoms, the patient feels back to baseline. The patient has experienced similar episodes in the past, multiple times. 02:53 Patient states that he was at home drinking beer last night and had a seizure while mh7 standing up. He fell to the floor and woke up possibly several hours later.. Historical: - Allergies: 02:45 NKDA; sm5 - Home Meds: 02:45 gabapentin 100 mg Oral cap 2 caps 3 times per day [Active]; Keppra 100 mg/mL Oral soln sm5 [Active]; lisinopril 10 mg Oral tab 1 tab once daily [Active]; Percocet 2.5-325 mg Oral tab [Active]; - PMHx: 02:45 Hypertension; Seizures; sm5 - PSHx: 02:45 cardiac stents; sm5 - Immunization history:: Client reports receiving the 2nd dose of the Covid vaccine, Flu vaccine is up to date. - Social history:: Smoking status: Patient reports the use of cigarette tobacco products, Patient uses alcohol, on a daily basis. ROS: 02:53 Constitutional: Negative for fever, chills, and weight loss, Eyes: Negative for injury, mh7 pain, redness, and discharge, ENT: Negative for injury, pain, and discharge, Neck: Negative for injury, pain, and swelling, Cardiovascular: Negative for chest pain, palpitations, and edema, Respiratory: Negative for shortness of breath, cough, wheezing, and pleuritic chest pain, Abdomen/GI: Negative for abdominal pain, nausea, vomiting, diarrhea, and constipation, : Negative for injury, bleeding, discharge, and swelling, MS/Extremity: Negative for injury and deformity, Skin: Negative for injury, rash, and discoloration, Psych: Negative for depression, anxiety, suicide ideation, homicidal ideation, and hallucinations, Allergy/Immunology: Negative for hives, rash, and allergies, Endocrine: Negative for neck swelling, polydipsia, polyuria, polyphagia, and marked weight changes, Hematologic/Lymphatic: Negative for swollen nodes, abnormal bleeding, and unusual bruising. Exam: 02:53 Constitutional: This is a well developed, well nourished patient who is awake, alert, mh7 and in no acute distress. Head/Face: Normocephalic, atraumatic. Eyes: Pupils equal round and reactive to light, extra-ocular motions intact. Lids and lashes normal. Conjunctiva and sclera are non-icteric and not injected. Cornea within normal limits. Periorbital areas with no swelling, redness, or edema. Neck: Trachea midline, no thyromegaly or masses palpated, and no cervical lymphadenopathy. Supple, full range of motion without nuchal rigidity, or vertebral point tenderness. No Meningismus. Chest/axilla: Normal chest wall appearance and motion. Nontender with no deformity. No lesions are appreciated. Cardiovascular: Regular rate and rhythm with a normal S1 and S2. No gallops, murmurs, or rubs. Normal PMI, no JVD. No pulse deficits. Respiratory: Lungs have equal breath sounds bilaterally, clear to auscultation and percussion. No rales, rhonchi or wheezes noted. No increased work of breathing, no retractions or nasal flaring. Abdomen/GI: Soft, non-tender, with normal bowel sounds. No distension or tympany. No guarding or rebound. No evidence of tenderness throughout. 02:53 MS/ Extremity: Pulses equal, no cyanosis. Neurovascular intact. Full, normal range of motion. Psych: Awake, alert, with orientation to person, place and time. Behavior, mood, and affect are within normal limits. 02:53 Back: pain, that is moderate, of the lumbar area, normal spinal alignment noted, CVA tenderness, is absent, vertebral tenderness, is appreciated at lumbar area, muscle spasm, is not present. 02:53 Neuro: Orientation: is normal, Mentation: is normal, Memory: is normal, Cranial nerves: grossly normal, Cerebellar function: is grossly normal, Motor: is normal, Sensation: is normal, Gait: not tested. seizure activity, is not displayed by the patient, Abnormal movements: there are no abnormal movements. 03:15 ECG was reviewed by the Attending Physician. [facility] Vital Signs: 02:43 BP 152 / 73; Pulse 83; Resp 19; Temp 97.6(O); Pulse Ox 99% on R/A; Weight 82.1 kg; 5 Height 6 ft. 1 in. (185.42 cm); 03:58 BP 124 / 76 LA Supine (auto/reg); Pulse 74 MON; Resp 16 S; Pulse Ox 99% on R/A; sv1 04:56 BP 135 / 70 LA Supine (auto/reg); Pulse 88 MON; Resp 18 S; Pulse Ox 99% on R/A; sv1 06:41 BP 111 / 62 LA Supine (auto/reg); Pulse 88 MON; Resp 17 S; Temp 97.9; Pulse Ox 96% on sv1 R/A; 02:43 Body Mass Index 23.88 (82.10 kg, 185.42 cm) [facility] MDM: 06:24 Differential diagnosis: drug overdose, cardiac arrhythmia, seizure, Alcohol [facility] intoxication. Data reviewed: vital signs, nurses notes, EMS record, old medical records, lab test result(s), cardiac enzymes, CBC, drug level(s), acetaminophen, alcohol, salicylate, electrolytes, urinalysis, urine drug screen, EKG, radiologic studies, CT scan. Data interpreted: Pulse oximetry: on room air is 99 %. Interpretation: normal. Counseling: I had a detailed discussion with the patient and/or guardian regarding: the historical points, exam findings, and any diagnostic results supporting the discharge/admit diagnosis, the presence of at least one elevated blood pressure reading (>120/80) during this emergency department visit, lab results, radiology results. Response to treatment: the patient's symptoms have resolved after treatment, the patient's blood pressure is in an acceptable range, mental status has returned to baseline, the patient no longer shows bradycardia, the patient is not short of breath, the patient is not tachycardic, the patient's pain is gone, the patient's temperature has normalized. ED course: Feels better, no acute distress, vital signs stable, no focal neurological deficits. Awake, alert, and oriented x4 and answering all questions appropriately. Ambulating without any difficulty. Discussed findings of CT scan including anterior dislocation of left shoulder. Patient states that it is a chronic condition that cannot be fixed as he has seen orthopedic surgery about this issue in the past. He declined any attempt at reduction. After reviewing past medical records patient, it was found that the left anterior shoulder dislocation is indeed chronic. Patient states she ready for discharge at this time.. 06:29 Patient medically screened. [facility] 08/10 02:46 Order name: Acetaminophen [facility] 08/10 02:46 Order name: Basic Metabolic Panel [facility] 08/10 02:46 Order name: CBC with Diff [facility] 08/10 02:46 Order name: ETOH Level; Complete Time: 03:48 7 08/10 02:46 Order name: Hepatic Function; Complete Time: 03:48 7 08/10 02:46 Order name: PT-INR; Complete Time: 03:48 7 08/10 02:46 Order name: Ptt, Activated; Complete Time: 03:48 [facility] 08/10 02:46 Order name: Salicylate; Complete Time: 03:48 7 08/10 02:46 Order name: Urine Drug Screen; Complete Time: 03:48 [facility] 08/10 02:46 Order name: Acetaminophen Level; Complete Time: 03:48 EDNC 08/10 02:46 Order name: Basic Metabolic Panel; Complete Time: 03:48 EDMS 08/10 02:46 Order name: CBC with Automated Diff; Complete Time: 03:48 EDMS 08/10 02:53 Order name: Glucose, Ancillary Testing; Complete Time: 03:48 EDNC 08/10 02:46 Order name: EKG; Complete Time: 02:46 7 08/10 02:46 Order name: EKG - Nurse/Tech; Complete Time: 03:08 [facility] 08/10 02:46 Order name: IV Saline Lock; Complete Time: 03:09 [facility] 08/10 02:46 Order name: Labs collected and sent; Complete Time: 03:09 [facility] 08/10 02:46 Order name: Urine Dipstick-Ancillary (obtain specimen); Complete Time: 03:09 [facility] 08/10 02:48 Order name: CT Head C Spine [facility] 08/10 02:48 Order name: CT Lumbar Spine Wo Con 7 08/10 02:49 Order name: CT Thoracic Spine Wo Cont [facility] 08/10 02:53 Order name: Urine Dipstick-Ancillary; Complete Time: 03:48 EDMS 08/10 03:06 Order name: Creatine Phosphokinase; Complete Time: 03:48 EDMS 08/10 03:48 Order name: Troponin High Sensitivity [facility] 08/10 03:48 Order name: Troponin High Sensitivity; Complete Time: 04:17 EDMS EC:15 Rate is 77 beats/min. Rhythm is regular, Normal Sinus Rhythm with No ectopy. QRS [place] [facility] is Normal. [place] interval is normal. QRS interval is normal. QT interval is normal. No Q waves. T waves are Normal. No ST changes noted. Clinical impression: Normal ECG, No change from prior ECG, and No evidence of ischemia. Administered Medications: 03:30 Drug: NS 0.9% 1000 ml Route: IV; Rate: 1000 ml; Site: right antecubital; sv1 03:30 Drug: Keppra (levETIRAcetam) 1000 mg Route: IV; Rate: per protocol; Site: right sv1 antecubital; 03:59 Follow up: Response: No adverse reaction; IV Status: Completed infusion sv1 Point of Care Testing: Blood Glucose: 02:48 Blood Glucose: 81 mg/dL; sm5 Ranges: Critical Glucose Levels:Adult <50 mg/dl or >400 mg/dl <40 mg/dl or >180 mg/dl Disposition Summary: 08/10/21 06:29 Discharge Ordered Location: Home [facility] Problem: an acute exacerbation [facility] Symptoms: have improved [facility] Condition: Stable [facility] Diagnosis - Other seizures mh7 - Alcohol use, unspecified with intoxication mh7 - Chronic left anterior shoulder dislocation 7 Followup: [facility] - With: Private Physician - When: 1 - 2 days - Reason: Worsening of condition, Recheck today's complaints, Continuance of care, Re-evaluation by your physician Followup: [facility] - With: Anibal Escobar MD - When: 1 - 2 days - Reason: Worsening of condition, Recheck today's complaints Discharge Instructions: - Discharge Summary Sheet [facility] - Alcohol Intoxication, [id number] [facility] - Seizure, Adult, [id number] [facility] Forms: - Medication Reconciliation Form [facility] - Thank You Letter [facility] - Antibiotic Education [facility] - Prescription Opioid Use [facility] Signatures: Dispatcher [employer] Celso Carbajal MD MD 7 Leonila Aguirre, RN RN sm5 Harish Camejo RN RN sv1 Corrections: (The following items were deleted from the chart) 03:06 02:51 CREATINE PHOSPHOKINASE+[id number].LAB.BRZ ordered. EDNC EDNC
[2021-08-10 07:19] VITALS: BP 111/62; TEMP 97.9; O2SAT 96
--- NOTE | 2021-08-10 07:22 | EKG ---
Test Date: 2021-08-10 Test Time: 03:03:51 Head Shipper: Williams Knapp MEASUREMENT RESULTS: Intervals: Rate: 77 NE: 156 QRSD: 98 QT: 398 QTc: 450 [place]: P: 69 NE: 156 QRS: 57 T: 68 INTERPRETIVE STATEMENTS: Normal sinus rhythm Increased R/S ratio in V1, consider early transition or posterior infarct Abnormal ECG Compared to ECG 12/09/2020 16:52:49 Myocardial infarct finding now present Left ventricular hypertrophy no longer present Electronically Signed On 08-10-21 07:21:54 CDT by Bill Clark
--- NOTE | 2021-08-10 12:18 | RAD REPORT ---
EXAM DESCRIPTION: 1. CT of the head without contrast 2. CT of the cervical spine without contrast. CLINICAL HISTORY: Fall COMPARISON: 02/14/2021 TECHNIQUE: Axial CT of the head obtained from the skull apex to the skull base without contrast. Axi al CT images of the cervical spine obtained from the skull base through the thoracic inlet. Sagittal and coronal reformatted images available. This exam was performed according to our departmental dose- optimization program, which includes automated exposure control, adjustment of the mA and/or kV accor ding to patient size and/or use of iterative reconstruction technique. FINDINGS: CT head: No acute intracranial hemorrhage identified. No mass, mass effect, shift of the midline, abnormal ext ra-axial fluid collection or CT evidence of acute ischemic change identified. The ventricular system and sulcal spaces are age appropriate. Scattered areas of hypodensity throughout the supratentorial white matter are nonspecific and may be related to chronic small vessel ischemic change. Mild mucosal thickening of the paranasal sinuses. Mastoid air cells are well aerated. No skull fractu re identified. Visualized orbits and globes are unremarkable. Cervical CT: Straightening of the cervical lordosis may be secondary to patient positioning. The atlantoaxial, a tlantodental, and occipitoatlantal intervals are preserved. No fracture identified. Vertebral body height preserved. Prevertebral soft tissues are unremarkable. Mild to moderate multilevel loss of intervertebral disc height with endplate spondylosis, facet arthr opathy, and uncovertebral spurring. Posterior disc osteophyte complex at multiple levels encroaches u sherri the anterior spinal canal and neural foramen. Visualized skull base is intact. No fracture of the visualized facial bones. Visualized mastoid air c ells and paranasal sinuses are well aerated. Visualized thyroid is unremarkable. No cervical lymphadenopathy. No pneumothorax in the visualized lung apices. The film of the left glenohumeral dislocation. IMPRESSION: 1. No acute intracranial abnormality. 2. No acute fracture or subluxation of the cervical spine. 3. Anterior dislocation of the left shoulder. 4. Multilevel degenerative change of the cervical spine. Electronically signed by: Jason Haynes 08/10/2021 5:48 AM CDT Due to temporary technical issues with the PACS/Fluency reporting system, reports are being signed by the in house radiologist without review as a courtesy to ensure prompt reporting. The interpreting r adiologist is fully responsible for the content of the report.
--- NOTE | 2021-08-10 12:20 | RAD REPORT ---
EXAM DESCRIPTION: CT lumbar spine without intravenous contrast. CLINICAL HISTORY: 55 years Male Fall. TECHNIQUE: Multiple high-resolution thin axial CT images were performed through the lumbar spine fol lowed by sagittal and coronal reconstructed images. The CT study is performed according to ALARA (as low as reasonably achievable) or ALARA/IMAGE GENTLY, with automatic adjustment of mA and/or kV accord ing to patient size. Performed on: 08/10/2021 at 4: 11 AM COMPARISON: CT trauma report from 10/03/2020. The images were not available for review. FINDINGS: The lumbar vertebrae are normal in height. There is normal alignment of the vertebrae. T here is moderate diffuse degenerative disc disease throughout the lumbar spine and mild to moderate d egenerative disc disease throughout the visualized lower thoracic spine most pronounced at T12-L1. Th ere is degenerative spondylosis throughout the lumbar spine and there is subchondral sclerosis at mul tiple levels particularly L1-L4. There are prominent disc osteophyte complexes throughout the lumbar spine. Bone mineralization is mildly diminished There is normal alignment of the facet joints on th e parasagittal images. There is no evidence of acute fracture or subluxation. There is multilevel mild canal stenosis due to disc osteophyte complexes and degenerative joint disease. There is multilevel mild bilateral rito ral foraminal stenosis secondary to degenerative disc disease and facet joint arthropathy. There are moderate atherosclerotic calcifications along the abdominal aorta and major branch vessels. There are bilateral renal calcifications which are vascular in nature. IMPRESSION: 1. No evidence of acute osseous injury involving the lumbar spine. 2. Moderate diffuse degenerative disc disease throughout the lumbar spine and visualized lower thor acic spine. 3. Multilevel mild canal stenosis and bilateral neural foraminal stenosis secondary to disc osteoph yte complexes and degenerative joint disease. 4. Mild diffuse bone demineralization. 5. Moderate atherosclerotic calcifications along the abdominal aorta and major branch vessels. Electronically signed by: Melody Londono DO 08/10/2021 6:02 AM CDT Due to temporary technical issues with the PACS/Fluency reporting system, reports are being signed by the in house radiologist without review as a courtesy to ensure prompt reporting. The interpreting r adiologist is fully responsible for the content of the report.
--- NOTE | 2021-08-10 12:22 | RAD REPORT ---
EXAM DESCRIPTION: CT of the thoracic spine without contrast. CLINICAL HISTORY: Fall COMPARISON: None available TECHNIQUE: Axial CT of the thoracic spine obtained without contrast. This exam was performed accordi ng to our departmental dose-optimization program, which includes automated exposure control, adjustme nt of the mA and/or kV according to patient size and/or use of iterative reconstruction technique. FINDINGS: Alignment of the thoracic spine is maintained without evidence of subluxation. No fractu re identified. Vertebral body height preserved. Prevertebral soft tissues are unremarkable. Mild multilevel loss of intervertebral disc height with endplate spondylosis and facet arthropathy. Atherosclerotic calcification of the thoracic aorta. Coronary artery atherosclerosis. No pneumothorax in the visualized lungs. IMPRESSION: 1. No acute fracture or subluxation of the thoracic spine. 2. Multilevel degenerative change of the thoracic spine. Electronically signed by: Jason Haynes 08/10/2021 5:58 AM CDT Due to temporary technical issues with the PACS/Fluency reporting system, reports are being signed by the in house radiologist without review as a courtesy to ensure prompt reporting. The interpreting r adiologist is fully responsible for the content of the report.
== END 2021-08-10 06:59 | disposition home or self-care (01) ==
LOC: ER 02:34
DX: G40.89 Other seizures (principal); F10.929 Alcohol use, unspecified with intoxication, unspecified; M24.412 Recurrent dislocation, left shoulder; W18.30XA Fall on same level, unspecified, initial encounter; I10 Essential (primary) hypertension; Z95.818 Presence of other cardiac implants and grafts; Z72.0 Tobacco use
CPT/HCPCS: 96365; 93005; 85025; 80048; 36415; 80320; 82550; 80329 ×2; 85610; 82947; 80076; 85730; 81003; 84484; 80307; 72131; 70450; 72125; 72128; 99285; J1953; J7030

== ENCOUNTER 2021-12-27 11:14 | Observation (INO) | payer OTHER ==
--- OUTSIDE RECORDS SUMMARY | 2021-12-27 11:42 | XMS REPORT | Continuity of Care Document ---
:1965 Author Organization [facility] t Address [address] [place] [address] Care Team Providers Name Role Phone PCP, PATIENT DOES NOT HAVE A Primary Care Physician Unavaila ELIUD Shultz Attending Clinician Unavailable Eliud Antunez NP Attending Clinician Doctor Unassigned, [place] Attending Clinician Unavailable JOSE SAVAGE Attending Clinician Unavailable CLARISSA SHEEHAN Attending Clinician Unavailable VICTOR M SEGURA Attending Clinician Unavailable ELIUD ANTUNEZ Admitting Clinician Unavailable CLARISSA SHEEHAN Admitting Clinician Unavailable VICTOR M SEGURA Admitting Clinician Unavailable Payers Payer Name Policy Type Policy Number Effective Date Expiration Date S briseida AETNA MEDICARE HMO [id number] 2016 POS 00:00:00 AETNA MEDICARE OUT [id number] 2020 OF NETWORK 00:00:00 Problems Condition Condition Condition Status Onset Resolution Last Treating Co mments Source Name Details Category Date Date Treatment Clinician Date Osteomyeli Osteomyeli Disease Active 2019-0 U nivers tis tis 7-13 ity of 00:00: [address] Cellulitis Cellulitis Disease Active 2019-0 U nivers of left of left 7-12 ity of foot foot 00:00: [address] Branch Se[facility] Metabolic Metabolic Disease Active 2016-[address] [facility] acidosis [facility]osis 1[facility]24 [facility] Leukocytos Leukocytos Disease Active 2016-[address] [facility] Tongue Tongue Disease Active 2016-[address] [facility] laceration laceration - Evelyn kes 00:[facility] H/O ETOH H/O ETOH Disease Active 2016[facility]05 [facility] Acute Acute Disease Active 2016-[address] [facility] kidney kidney 06-17 [facility] injury injury [facility] 00 Center Hypertensi Hypertensi Disease Active 2016-[address] on, on, 06-17 [facility] essential essential 00:00: [address] Status Status Disease Active 2016-[address] [facility] epilepticu epilepticu -20 Evelyn kes s s 00:00: Medical [address] [place] ANEMIA ANEMIA Diagnosis Active 2015-052016-04-05 Me moria Active 06-04 09:38:00 l 04/04/2016 00:00: Raudel black The [address] [place] [address] OTHER OTHER Diagnosis Active 2015-052016-03-13 Mem oria Active 19:39:00 l 03/13/2016 00:00: Raudel black The 00 [employer] FOOT FOOT Diagnosis Active 2016-02-12 Mem oria GANGRENE GANGRENE 01-30 20:08:00 l Active 00:00: Kai 01/31/2016 00 [facility] LEFT FOOT LEFT FOOT Diagnosis Active 2016-01-31 Memoria SORES SORES 01-30 22:38:00 l Active 00:00: Kai 01/31/2016 00 [facility] CP CP Active Diagnosis Active 2015-02-15 Memoria 02/15/201502-15 16:10:00 l The 00:00: [facility] 00 CHEST PAIN CHEST Diagnosis Active 2015-02-15 Memoria PAIN 02-15 18:21:00 l Active 00:00: Kai 02/15/2015 00 [facility] LEFT WRIST LEFT Diagnosis Active 2015-02-09 Memoria PAIN WRIST PAIN 02-09 16:02:00 l Active 00:00: Kai 02/09/2015 00 [facility] AMS AMS Diagnosis Active 2015-01-23 Mem oria Active 01-23 15:36:00 l 01/23/2015 00:00: Raudel black The 00 [employer] WOUND WOUND Diagnosis Active 2014-02-12 Me moria INFECTION INFECTION 10-20 13:06:00 l V V 00:00: [place] NECFAS;CHR NECFAS;CHR 00 ONIC ONIC OSTEOMY OSTEOMY Active 10/20/2013 [facility] Acute Acute Problem Active 2016-04-08 Memor ia osteomyeli osteomyeli 03:42:03 l tis tis [place] (disorder) (disorder) Active Problem 04/08/2016 [facility] Congestive Congestiv Problem Active 2016-04-08 Memoria heart e heart 03:42:03 l failure failure Kai (disorder) (disorder) Active Problem 04/08/2016 [facility] Hypertensi Hypertens Problem Active 2016-04-08 Memoria ve vahid 03:42:03 l disorder, disorder, Herm delisa systemic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 arterial (disorder) (disorder) Active Problem 04/08/2016 [facility] Bronchitis Bronchiti Problem Active 2016-04-08 Memoria (disorder) s 03:42:03 l (disorder) Raudel n Active Problem 04/08/2016 [facility] Chronic Chronic Problem Active 2016-04-08 Me moria obstructiv obstructiv 03:42:03 l e lung e lung Kai disease disease (disorder) (disorder) Active Problem 04/08/2016 [facility] History of History Problem Active 2016-04-08 Memoria - of - 03:42:03 l infectious infectious He rmann disease disease (context-d (context-d ependent ependent category) category) Active Problem 04/08/2016 [facility] History of History Problem Active 2016-04-08 Memoria amputation of 03:42:03 l of lesser amputation Her cook toe of lesser (situation toe ) (situation ) Active Problem 04/08/2016 [facility] History of History Problem Active 2016-04-08 Memoria - of - 03:42:03 l cardiovasc cardiovasc He rmann ular ular disease disease (context-d (context-d ependent ependent category) category) Active Problem 04/08/2016 [facility] Benign Benign Problem Active 2016-04-08 Mem oria prostatic prostatic 03:42:03 l hyperplasi hyperplasi He rmann a a (disorder) (disorder) Active Problem 04/08/2016 [facility] Epistaxis Epistaxis Problem Active 2016-04-08 Memoria (disorder) (disorder) 03:42:03 l Active Kia Problem 04/08/2016 [facility] CELLULITIS CELLULITI Diagnosis Active 2014-02-12 Memoria OF FOOT S OF FOOT 13:06:00 l Active Raudel black Moriarty AC AC Diagnosis Active 2014-02-12 Mem oria OSTEOMYELI OSTEOMYELI 13:06:00 l TIS-UNSPEC TIS-UNSPEC He rmann Active [facility] CHEST PAIN CHEST Diagnosis Active 2015-02-15 Memoria NOS PAIN NOS 18:21:00 l Active Raudel black Moriarty GANGRENE, GANGRENE, Diagnosis Active 2016-02-12 Memoria NOT NOT 20:08:00 l ELSEWHERE ELSEWHERE Herm delisa CLASSIFIED CLASSIFIED Active [facility] ANEMIA, ANEMIA, Diagnosis Active 2016-04-05 Memoria UNSPECIFIE UNSPECIFIE 09:38:00 l D D Active Kai [facility] History of Past Illness Condition Condition Condition Status Onset Resolution Last Treating Co mments Source Name Details Category Date Date Treatment Clinician Date Discharge Discharge Problem 2015-052016-03-17 2016-03-17 Memoria Diagnosis: Diagnosis: 0-18 03:02:37 03:02:37 l Acute on Acute on 05:00: Raudel black chronic chronic 00 renal renal failure failure 03/14/2016 03/17/2016 [facility] Discharge Discharge Problem 2015-052016-03-17 2016-03-17 Memoria Diagnosis: Diagnosis: 0-18 03:02:37 03:02:37 l Anemia Anemia 05:00: Kai 03/14/2016 00 03/17/2016 [facility] Discharge Discharge Problem 2015-052016-03-17 2016-03-17 Memoria Diagnosis: Diagnosis: 0-18 03:02:37 03:02:37 l Post-opera Post-opera 05:00: He liz tive pain tive pain 00 03/14/2016 03/17/2016 [facility] Discharge Discharge Problem 2015-052016-03-17 [facility] Diagnosis: 03:02:37 03:02:37 l Acute Acute 05:00: Kai hypokalemi hypokalemi 00 a a 03/14/2016 03/17/2016 [facility] Discharge Discharge Problem 2015-02-19 2015-02-19 Memoria Diagnosis: Diagnosis: 02-16 07:51:51 07:51:51 l Hyperlipid Hyperlipid 14:36: He liz emia emia 02/16/2015 02/19/2015 [facility] Discharge Discharge Problem 2015-02-19 2015[facility]02[facility]: Diagnosis: 02-16 07:51:51 07:51:51 l Hypertensi Hypertensi 14:36: [place] on on 02/16/2015 02/19/2015 [facility] Discharge Problem 2015-02-19 2015-02-19 Memoria Diagnosis: Discharge 02-16 07:51:51 07:51:51 l Angina Diagnosis: 14:35: Raudel black pectoris Angina 54 pectoris 02/16/2015 02/19/2015 [facility] Discharge Problem 2015-02-12 2015-02-12 Memoria Diagnosis: Discharge 02-09 09:59:31 09:59:31 l Wrist Diagnosis: 05:00: Raudel black sprain Wrist 00 sprain 02/09/2015 02/12/2015 [facility] Discharge Discharge Problem 2015-01-26 2015-01-26 Memoria Diagnosis: Diagnosis: 01-23 02:07:27 02:07:27 l 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 baptiste seizure, seizure, 00 generalize generalize d d 01/23/2015 5 [facility] Discharge Discharge Problem 2015-01-26 2015-01-26 Memoria Diagnosis: Diagnosis: 01-23 02:07:27 02:07:27 l Cerebral Cerebral 05:00: Raudel black seizure seizure 00 01/23/2015 5 [facility] Allergies, Adverse Reactions, Alerts Allergy Allergy Status Severity Reaction(s) Onset Inactive Treating Comm ents Source Name Type Date Date Clinician No Known DA Active U 2018-05 [facility]ie 0-10 [place] s 00:00: [facility] [address] [facility] [address] Morphine Propensi Active Other (See 2016-[address] ty to Comments) 06-16 [facility] adverse 00:00: Medical reaction 00 [place] s MORPHINE Allergy Active Other 2016-05 [facility] 06-16 00:00: 00 morphine morphine Active Thomas Quinn NO KNOWN Drug Active [facility] ALLERG Class ity of S [facility] Social History Social Habit Start Date Stop Date Quantity Comments Source Exposure to Not sure [facility] SARS-CoV-2 (event) [facility] Cigarettes smoked 2017-04-16 2017-04-16 [facility] current (pack per 00:00:00 00:00:00 [facility] day) - Reported Tobacco use and 2017-04-16 2017-04-[address] [facility] exposure 00:00:00 00:00:00 [facility] Social History 2013-10-21 2013-10-21 [facility] 05:36:39 05:36:39 Sex Assigned At [address] [facility] y of 00:00:00 00:00:00 [facility] Smoking Status Start Date Stop Date Source Unknown if ever smoked [facility] Current every day smoker 2017-04-16 00:00:00 [facility] Medications Ordered Filled Start Stop Current Ordering Indication Dosage Frequency Signature Comments Components Source Medication Medication Date Date Medication? Clinician (SIG) Name Name ketorolac 2020-05- No 30mg 30 mg, Unive rs (TORADOL) 06-04 Slow IV ity of injection 05:00: 04:08 Push, [place] 30 mg 00 :00 ONCE, 1 Medical dose, [facility] 04/03/21 at 2300, Routine
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 amLODIPine 2019- Yes [id number] 10mg Take 1 Univers 10 mg 7-18 [id number] tablet by ity of tablet 00:00: mouth [place] 00 daily. Medical Branch aspirin 81 2019- Yes [id number] 81mg Take 1 Univers mg chewable 7-18 [id number] tablet by i ty of tablet 00:00: mouth [place] 00 daily. Medical Branch amLODIPine 2018- Yes [id number] 10mg Take 1 [facility] 10 mg 7-18 [id number] tablet by ity of tablet 00:00: mouth [place] 00 daily. Medical Branch aspirin 81 Yes [id number] 81mg Take 1 Univers mg chewable 7-18 [id number] tablet by i ty of tablet 00:00: mouth [place] 00 daily. Medical Branch levETIRAcet 2018- Yes [id number] 1000mg Take 1 Univers am 1,000 mg 7-17 [id number] tablet by i ty of tablet 00:00: mouth 2 [place] 00 (two) Medical times Branch daily. metroNIDAZO 2018- Yes [id number] 500mg Take 1 Univers LE 500 mg 7-17 [id number] tablet by ity of tablet 00:00: mouth 2 [place] 00 (two) Medical times Branch daily. sulfamethox 2019- Yes [id number] 1{tbl} Take 1 Univers azole-trime 7-17 [id number] tablet by i ty of thoprim 00:00: mouth 2 [place] 800-160 mg 00 (two) Medical per tablet times Branch daily. atorvastati 2018- Yes [id number] 40mg Take 1 Univers n 40 mg 7-17 [id number] tablet by ity o f tablet 00:00: mouth at [place] 00 bedtime. Medical Branch HYDROcodone 2018- Yes [id number] 1{tbl} Take 1 Univers -acetaminop 7-17 [id number] tablet by i ty of hen 10-325 00:00: mouth [place] mg tablet 00 every 6 Medical (six) Branch hours as needed for Pain (scale 4-6). levETIRAcet 2018- Yes [id number] 1000mg Take 1 Univers am 1,000 mg 7-17 [id number] tablet by i ty of tablet 00:00: mouth 2 [place] 00 (two) Medical times Branch daily. metroNIDAZO 2019- Yes [id number] 500mg Take 1 Univers LE 500 mg 12-11 [id number] tablet by ity of tablet 00:00: mouth 2 [place] 00 (two) Medical times Branch daily. sulfamethox Yes [id number] 1{tbl} Take 1 Univers azole-trime 17 [id number] tablet by i ty of thoprim 00:00: mouth 2 [place] 800-160 mg 00 (two) Medical per tablet times Branch daily. atorvastati Yes [id number] 40mg Take 1 Univers n 40 mg 12-11 [id number] tablet by ity o f tablet 00:00: mouth at [place] 00 bedtime. Medical Branch HYDROcodone Yes [id number] 1{tbl} Take 1 Univers -acetaminop 12-11 [id number] tablet by i ty of hen 10-325 00:00: mouth [place] mg tablet 00 every 6 Medical (six) Branch hours as needed for Pain (scale 4-6). lovastatin Yes 20mg QD Take [address] (MEVACOR) 5-20 by mouth [facility] 20 MG 20:42: nightly. Medical tablet 31 [place] aspirin/shawn Yes 2{packe Take [address] icylamide/c 5-20 t} packets by Evelyn magana (BC 20:42: mouth Medic al HEADACHE 31 daily as Center POWDER needed ORAL) (For headache and pain relief). VENTOLIN Yes 1{puff} Inhale [address] HFA 90 4-01 puff by [facility] mcg/actuati 00:00: mouth via Kalli tobar on inhaler 00 inhaler 3 Cent er (three) times daily as needed for Shortness of Breath. lisinopril Yes 10mg QD Take [address] (PRINIVIL,Z 4-01 by mouth Luke s ESTRIL) 10 00:00: daily. Medic al MG tablet 00 Center amLODIPine Yes 10mg QD Take [address] (NORVASC) 4-01 by mouth [facility] 10 MG 00:00: daily. Medical tablet 00 [place] Sodium 2015-05 Yes IVPB, 150 Memori a Chloride 1-09 ml/hr, l 0.9% IV 14:00: PRN, Start Herm delisa date: 04/05/16 8:00:00 SKIVER BOX TOE, Duration: 30, 1,000 ml EPINEPHrine 2015-05 Yes Notes: Memoria 06-05 MEDICATION l 13:22: WASTE Product Size: 1 mg Product Wasted: ___ mg Solu-CORTEF 2015-05 Yes Notes: Ed bandar - (Same as: l 13:22: Solu-JOHN Kai 00 F) Benadryl 2015-05 Yes Notes: Memoria 06-05 (Same as: l 13:22: Benadryl) [place] Sodium 2015-05 Yes IV, 0 Memoria Chloride 1-09 ml/hr, l 0.9% IV 13:21: PRN, PRN Raudel n 00 Blood Transfusio n, Start date: 04/05/16 7:21:00 SKIVER BOX TOE, Duration: 30, 250 ml heparin 2015-05 Yes Notes: Memoria flush 06-05 (Same as: l 13:21: Heparin Kai 00 Lock Flush) BD Normal 2015-05 Yes Notes: Memori a Saline 06-05 (Same as: l Flush 13:21: BD [place] 00 Posiflush) Benadryl 2015-05 Yes Notes: Memoria 06-05 (Same as: l 13:21: Benadryl) Tylenol 2015-05 Yes Notes: Do Memor ia 06-05 not exceed l 13:20: 4 gm/day. Kai 00 (Same as: Tylenol) Acetaminoph 2015-05 No Notes: Ed bandar en 325 MG / 0-18 (Same as: l Hydrocodone 11:34: [place] Denita nn Bitartrate 00 325/5) Do 5 MG Oral not exceed Tablet 4gm/day of [Yulee acetaminop 5/325] hen. Acetaminoph 2015-05 No 1 tab, PO, Memoria en 300 MG / 0-18 Q4H, PRN l Codeine 09:54: Pain, X 2 Denita nn Phosphate 00 day, # 12 30 MG Oral tab, 0 Tablet Refill(s) [Tylenol with Codeine #3] Zofran 2015-05 No Notes: Memoria 0-18 (Same as: l 04:18: Zofran) [place] 00 MEDICATION WASTE Product Size: 4 mg Product Wasted: ___ mg Dilaudid 2015-05 No Notes: Memoria 0-18 Same as: l 04:18: Dilaudid Kai 00 Sodium 2016 No 500 mL, Memoria [...] bandar 02-16 (Same As: l 20:00: Rocephin). [place] 00 Use with 100 mL NS and [...] 02-16 cap, PO, l capsule 12:57: After [place] 00 Dinner, 0 Refill(s) fluconazole Yes 200 mg = 2 Memoria 100 mg oral 02-16 tab, PO, l tablet 12:57: BRMA32O, 0 Denita nn 00 Refill(s) pantoprazol Yes 40 mg = 1 M emoria e 40 mg 02-16 tab, PO, l oral 12:57: Before [place] enteric Breakfast, coated 0 tablet Refill(s) Acetaminoph Yes 1 tab, PO, Memoria en 325 MG / 02-16 Q4H, PRN l Hydrocodone 12:57: Pain Score [place] Bitartrate 00 1-3, 0 5 MG Oral [...] Memoria 02-11 (Same as: l 14:59: Sublimaze) Preservati ve free. Hydralazine No Notes: Ed bandar 02-11 [...] 2000 mg Product Wasted: ___ mg Dilaudid 2016-0 No Notes: Memoria 02-10 Same as: l 13:37: Dilaudid [place] 00 vancomycin No 2000 mg: Me moria 02-10 infuse l 11:00: over 2.5 [place] 00 hours metoprolol No Notes: Memor ia 15 (Same as: l 14:00: Toprol XL) Kai 00 May split tab, but do not crush. Alprazolam No Notes: Memor ia 1 MG Oral 02-09 With food l Tablet 13:19: or milk [place] [Xanax] 00 (Same as: Xanax) vancomycin No 2000 mg: Me moria -15 infuse l 10:00: over 2.5 [place] 00 hours Anoro No Anoro Memoria 62.5mcg/25 [...] Dosing per l RPh 19:51: RPh, ., [place] 00 Drug form: MISC, Route: MISC, PRN, PRN Other -See Comment, 02/09/16 14:51:00 CDT, Duration: 30 day, Stop date: 03/10/16 14:50:00 CDT Dilaudid 0 No Notes: Memoria 02-08 Same as: l 18:01: Dilaudid [place] 00 Sodium No 500 mL, Memoria Chloride 02-08 500 ml/hr, l 0.154 17:59: Infuse Kai MEQ/ML 00 Over: 1 Injectable hr, Route: Solution IV, 500, Drug form: INJ, ONCE, Priority: STAT, Dosing Weight 96.023 kg, Start date: 02/09/16 12:59:00 CDT, Duration: 1 doses or times, Stop date: 02/09/16 12:59:00 CDT pantoprazol No Notes: Ed bandar e - Tablet l 14:00: should not [place] 00 be chewed or crushed. (Same as: Protonix) chlorhexidi No Notes: Ed bandar ne 02-08 (Same As: l gluconate 14:00: Hibiclens) He rmann 40 MG/ML 00 Medicated Liquid Soap Simvastatin No Notes: Ed bandar 02-08 (Same as: l 02:00: Zocor) Kai Cefuroxime No 1.5 gm, Ed bandar 02-08 Route: l 02:00: IVPB, [place] 00 ABXQ8H, Dosing Weight 96.023, kg, Start date: 02/08/16 21:00:00 CDT, Duration: 3 doses or times, Stop date: 02/09/16 13:00:00 CDT Neutra-Phos No Notes: Ed bandar 02-08 Same as: l 01:04: Phos-Nak Kai 00 Mix 1 packet with 75 mL water or juice. Each packet has 160mg of sodium, 280mg of potassium, and 250mg of phosphorus Non-Formul tamara Item potassium No Notes: Memori a phosphate + 02-08 (Same as: l sodium 01:04: K [place] chloride 00 Phosphate. 0.9% 500 ml ) [...] Oxide 02-08 (Same as: l 01:04: Mag-Ox [place] 00 400) Magnesium oxide [id number] g elemental magnesium Dose=____m g magnesium oxide [...] 9-14 15 mL, l sodium 01:04: Route: [place] chloride 00 IVPB, Drug 0.9% 500 ml [...] WASTE: F/P l 01:04: - Sink; E [place] - [employer] [facility] Albuterol No Notes: SEE Me moria 0.83 MG/ML 14 RT l Inhalant 01:04: DOCUMENTAT Her cook Solution 00 ION (Same as: Proventil) Dextrose No 25 gm, 50 Ed bandar 50% Syringe 9-14 mL, Route: l 01:04: IVP, Drug Aki 00 Form: INJ, Dosing Weight 96.023, kg, PRN, PRN Blood Glucose Results, Start date: 02/08/16 20:04:00 CDT, Duration: 30 day, Stop date: 03/09/16 20:03:00 CDT Docusate No Notes: Memoria 02-08 (Same as: l 01:04: Colace) [place] 00 (Do Not Crush) Glucagon No 1 mg, Memoria 02-08 Route: IM, l 01:04: Drug form: [place] 00 PDR/INJ, PRN, Dosing Weight 96.023, kg, PRN Blood Glucose Results, Start date: 02/08/16 20:04:00 CDT, Duration: 30 day, Stop date: 03/09/16 20:03:00 CDT Acetaminoph No Notes: Ed bandar en 325 MG / 02-08 (Same as: l Hydrocodone 01:04: Yulee Denita nn Bitartrate 00 325/5) Do 5 MG Oral not exceed Tablet 4gm/day of acetaminop hen. Acetaminoph No Notes: Do M emoria en 02-08 not exceed l 01:04: 4 gm/day. Kai (Same as: Tylenol) D5W 1/2NS + No Notes: Ed bandar KCL 20mEq/L 02-08 PREMIX IV l 1000ml 01:04: - Do Not [place] (Premix) 00 Alter 1,000 mL WASTE: F/P [...] Memoria 02-07 (Same as: l 14:59: Sublimaze) Preservati ve free. Hydromorpho No Notes: Ed bandar ne [...] (ANES) 02-07 Drug form: l 13:40: SOLN, [place] 00 ONCE, Stop date: 02/08/16 8:40:00 CDT rocuronium No Route: IV, Kalli emoria (ANES) 02-07 Drug form: l 13:40: INJ, ONCE, Kai 00 Stop date: 02/08/16 8:40:00 CDT piperacilli No IV, ONCE Me moria n-tazobacta 02-07 l m (ANES) 13:25: Kai famotidine No Route: IV, M emoria (ANES) 02-07 Drug form: l 13:25: INJ, ONCE, Stop date: 02/08/16 8:25:00 CDT Rifadin IV No Notes: Memor ia 02-07 Child:10-2 l 12:00: 0mg/kg ,<= [place] 00 600mg/day. Protect from light (Same as: [...] moria 02-01 infuse l 20:00: over 2.5 [place] 00 hours atorvastati No Notes: Ed bandar n 02-01 (Same as: l 02:00: Lipitor) Vancomycin No 1 ea, Memori a 01-31 Route: l 20:00: MISC, Dosing Weight 97.273, kg, ONCALL, Start date: 02/01/16 15:00:00 CDT, Duration: 1 doses or times, Pharmacy to dose Acetaminoph No Notes: Do M emoria en 325 MG / 01-31 not exceed l Hydrocodone 18:10: 4gm/day of [place] Bitartrate 00 acetaminop 10 MG Oral hen. (Same Tablet as: Yulee [Yulee 325/10) 10325] Tylenol No Notes: Do Memor ia 01-31 not exceed l 18:02: 4 gm/day. [place] 00 (Same as: Tylenol) Vancomycin No 2000 mg: Me moria 01-31 infuse l 18:00: over 2.5 [place] 00 hours MEDICATION WASTE Product Size: 1000 [...] as: l / 13:22: Duoneb) Ipratropium 00 [place] 0.167 MG/ML Inhalant Solution Zofran No Notes: [...] tab, PO, l tablet 04:53: Daily, # [place] 00 30 tab, 0 Refill(s) metoprolol Yes [...] PO, l oral tablet 04:53: Bedtime, # [place] 00 30 tab, 0 Refill(s) Anoro Yes 1 puff, Memoria Ellipta 01-31 INHALER, l 62.5 mcg-25 04:53: Daily, # 1 [place] mcg 00 ea, 3 inhalation Refill(s) powder Alprazolam Yes 2 mg = 1 Mem oria 2 MG Oral 01-31 tab, PO, l Tablet 04:53: BID, PRN [place] 00 Anxiety, # 20 tab, 0 Refill(s) [...] not exceed l Hydrocodone 21:57: 4gm/day of Kia Bitartrate 00 acetaminop 10 MG Oral hen. (Same Tablet as: Yulee [Yulee 325/10) 10/325] Amlodipine Yes 10 mg, PO, M emoria [...] Memoria 02-16 (Same as: l 14:00: Prinivil, Kai 00 Zestril) metoprolol No Notes: Memor ia tartrate 02-16 (Same as: l 14:00: Lopressor) Kai 00 Microzide No Notes: Memori a 02-16 (Same as: l 14:00: Hydrodiuri [place] 00 l). Give with food. pneumococca No [...] / 02-16 (Same as: l Hydrocodone 04:39: Yulee Denita nn Bitartrate 00 325/5) Do 5 MG Oral not exceed Tablet 4gm/day of [Yulee acetaminop 5/325] hen. Tessalon No Notes: Memoria Perles 02-16 (Same As: l 01:00: Tessalon [place] 00 Perles) "Do Not Crush" Acetaminoph Yes 1 tab, PO, Memoria en 325 MG / 02-16 Q12H, PRN l Hydrocodone 00:48: Pain, # 30 Kai Bitartrate 00 tab, 0 5 MG Oral Refill(s) Tablet [Yulee 5/325] Alprazolam Yes 0.25 mg = Me moria 0.25 MG 02-16 1 tab, PO, l Oral Tablet 00:48: BID, PRN He rmann [Xanax] 00 Anxiety, Stress, # 20 tab, 0 Refill(s) metoprolol Yes 25 mg, PO, M emoria tartrate 02-16 BID, 0 l 00:48: Refill(s) [place] 00 NS 1,000 mL No 1,000 mL, M emoria 02-15 Rate: 75 l 23:04: ml/hr, Kai 00 Infuse over: 13.3 hr, Route: IV, Dosing Weight 13.636 kg, Total Volume: 1,000, Start date: 02/15/15 18:04:00, Duration: 30 day, Stop date: 03/17/15 18:03:00 Xopenex No Notes: SEE Ed bandar 02-15 RT l 23:03: DOCUMENTAT [place] 00 ION (Same as:Xopenex ) Non-Formul tamara Acetaminoph No Notes: Do M emoria en 325 MG / 02-15 not exceed l Hydrocodone 23:03: 4gm/day of [place] Bitartrate 00 acetaminop 10 MG Oral hen. (Same Tablet as: Yulee [Yulee 325/10) 10/325] Albuterol No Notes: Memori a 0.833 MG/ML 02-15 (Same as: l / 20:51: Duoneb) Kai Ipratropium 00 [place] 0.167 MG/ML Inhalant Solution [DuoNeb] Aspirin No Notes: Memoria 02-15 Take with l 20:00: food. [place] 00 tramadol Yes 100 mg = 2 Mem oria hydrochlori 02-09 tab, PO, l de 50 MG 21:05: Q6H, PRN Denita nn Oral Tablet 00 pain, X 3 [Ultram] day, # 20 tab, 0 Refill(s) Tylenol No Notes: Do Memor ia 02-09 not exceed l 20:47: 4 gm/day. Kai 00 (Same as: Tylenol) Sodium No 1,000 mL, Memori a Chloride 8-29 1,000 l 0.154 19:39: ml/hr, [place] MEQ/ML 00 Infuse Injectable Over: 1 Solution hr, Route: IV, 1,000, Drug form: INJ, ONCE, Priority: STAT, Dosing Weight 104.545 kg, Start date: 01/23/15 14:39:00, Duration: 1 doses or times, Stop date: 01/23/15 14:39:00 Saline 2014-0 No Notes: Memoria Flush 0.9% 01-23 preservati l 19:39: ve free. Kai 00 Immunizations Ordered Immunization Filled Immunization Date Status Commen ts Source Name Name pneumococcal 2015-02-16 Completed [facility] 23-valent vaccine 13:53:00 Kai Vital Signs Vital Name Observation Time Observation Value Comments Source Systolic blood 2021-04-04 05:00:00 102 mm[Hg] [facility] Diastolic blood 2021-04-04 05:00:00 62 mm[Hg] [facility] Heart rate 2021-04-04 05:00:00 89 /min [facility] Oxygen saturation in 2021-04-04 05:00:00 99 /min [facility] Arterial blood by [facility] Pulse oximetry [place] Respiratory rate 2021-04-04 04:00:00 16 /min [facility] Body temperature 2021-04-04 03:37:[address] [facility] Body height 2021-04-04 03:37:00 185.4 cm [facility] Body weight 2021-04-04 03:37:00 72.576 kg [facility] BMI 2021-04-04 03:37:00 21.11 kg/m2 [facility] WEIGHT 2020-01-02 00:00:00 85.276 kg WEIGHT 2020-01-02 00:00:00 85.276 kg Systolic (mm Hg) 2016-04-05 18:57:00 Ed Abarcaann Diastolic (mm Hg) 2016-04-05 18:57:00 Mem orial [facility] Respitory Rate 2016-04-05 18:57:00 Thomas al [facility] Heart Rate 2016-04-05 18:57:00 Chacorta Quinn Systolic (mm Hg) 2016-04-05 18:27:00 Ed chaparro [facility] Diastolic (mm Hg) 2016-04-05 18:27:00 Mem orial Kai Respitory Rate 2016-04-05 18:27:00 Memori al Kai Heart Rate 2016-04-05 18:27:00 [facility] Kai Respitory Rate 2016-04-05 17:57:00 Memori al Kai Heart Rate 2016-04-05 17:57:00 [facility] Systolic (mm Hg) 2016-04-05 17:57:00 Ed rial Kai Diastolic (mm Hg) 2016-04-05 17:57:00 Mem orial Kai Temperature Oral (F) 2016-04-05 17:35:00 97.7 F [facility] Temperature Oral (F) 2016-04-05 17:27:00 97.7 F [facility] Temperature Oral (F) 2016-04-05 16:22:00 98.2 F [facility] Weight 2016-04-05 13:20:00 [facility] BMI Calculated 2016-04-05 13:20:00 Memori al Kai Height 2016-04-05 13:20:00 185 cm [facility] Respitory Rate 2016-03-14 11:00:00 Memori al [facility] Systolic (mm Hg) 2016-03-14 11:00:00 Ed rial Bowman Diastolic (mm Hg) 2016-03-14 11:00:00 Mem orial [facility] Systolic (mm Hg) 2016-03-14 10:00:00 Ed rial Kai Diastolic (mm Hg) 2016-03-14 10:00:00 Mem orial Kai Respitory Rate 2016-03-14 10:00:00 Memori al Kai Temperature Oral (F) 2016-03-14 09:00:00 98.8 F [facility] Respitory Rate 2016-03-14 09:00:00 Memori al [facility] Systolic (mm Hg) 2016-03-14 09:00:00 Ed rial [facility] Diastolic (mm Hg) 2016-03-14 09:00:00 Mem orial [facility] Temperature Oral (F) 2016-03-14 05:00:00 98.7 F [facility] Heart Rate 2016-03-14 03:48:00 [facility] BMI Calculated 2016-03-13 23:42:00 Memori al Kai Weight 2016-03-13 23:42:00 [facility] Temperature Oral (F) 2016-03-13 23:42:00 98.6 F [facility] Height 2016-03-13 23:42:00 185.42 cm [facility] Heart Rate 2016-03-13 23:42:00 [facility] Heart Rate 2016-02-18 19:19:00 [facility] Temperature Oral (F) 2016-02-18 19:19:00 98.8 F [facility] Respitory Rate 2016-02-18 19:19:00 Memori al Kai Systolic (mm Hg) 2016-02-18 19:19:00 Ed rial Bowman Diastolic (mm Hg) 2016-02-18 19:19:00 Mem orial Kai Temperature Oral (F) 2016-02-18 15:28:00 98.3 F [facility] Heart Rate 2016-02-18 15:28:00 [facility] Systolic (mm Hg) 2016-02-18 15:28:00 Ed rial Kai Diastolic (mm Hg) 2016-02-18 15:28:00 Mem orial Kai Respitory Rate 2016-02-18 15:28:00 Memori al Kai Temperature Oral (F) 2016-02-18 12:40:00 98.2 F [facility] Heart Rate 2016-02-18 12:40:00 [facility] Kai Systolic (mm Hg) 2016-02-18 12:40:00 Ed rial [facility]man Diastolic (mm Hg) 2016-02-18 12:40:00 Mem orial Kai Respitory Rate 2016-02-18 12:40:00 [facility] Weight 2016-02-08 11:10:00 [facility] BMI Calculated 2016-02-08 10:24:00 Mem[facility] al [facility] Weight 2016-02-08 10:24:00 [facility] Height 2016-02-08 10:24:00 185.42 cm [facility] Weight 2016-02-01 04:41:00 [facility] BMI Calculated 2016-02-01 04:41:00 Memori al Kai Height 2016-02-01 04:41:00 185.42 cm [facility] Height 2016-01-31 19:21:00 185.42 cm [facility] BMI Calculated 2016-01-31 19:21:00 Mem[facility] al [facility] Respitory Rate 2015-02-16 18:18:00 Mem[facility] al [facility] Temperature Oral (F) 2015-02-16 17:50:00 98.0 F [facility] Respitory Rate 2015-02-16 17:50:00 Memori al [facility] Heart Rate 2015-02-16 17:50:00 [facility] Systolic (mm Hg) 2015-02-16 17:50:00 Ed rial Bowman Diastolic (mm Hg) 2015-02-16 17:50:00 Mem orial [facility] Temperature Oral (F) 2015-02-16 12:35:00 98.2 F [facility] Heart Rate 2015-02-16 12:35:00 [facility] Systolic (mm Hg) 2015-02-16 12:35:00 Ed rial Kai Diastolic (mm Hg) 2015-02-16 12:35:00 Mem orial Kai Respitory Rate 2015-02-16 12:35:00 Memori al Kai Temperature Oral (F) 2015-02-16 09:00:00 97.5 F [facility] Systolic (mm Hg) 2015-02-16 09:00:00 Ed rial Kai Diastolic (mm Hg) 2015-02-16 09:00:00 Mem orial Kai Heart Rate 2015-02-16 09:00:00 [facility] Height 2015-02-16 00:50:00 185.42 cm [facility] BMI Calculated 2015-02-16 00:50:00 Memori al Kai Weight 2015-02-16 00:50:00 [facility] Weight 2015-02-15 17:48:00 [facility] BMI Calculated 2015-02-15 17:48:00 Memori al Kai Height 2015-02-15 17:48:00 185.42 cm [facility] Temperature Oral (F) 2015-02-09 21:12:00 98.2 F [facility] Heart Rate 2015-02-09 21:12:00 [facility] Respitory Rate 2015-02-09 21:12:00 Memori al [facility] Systolic (mm Hg) 2015-02-09 21:12:00 Ed rial Kai Diastolic (mm Hg) 2015-02-09 21:12:00 Mem orial Kai BMI Calculated 2015-02-09 20:27:00 Mem[facility] al [facility] Weight 2015-02-09 20:27:00 [facility] Height 2015-02-09 20:27:00 185.42 cm [facility] Systolic (mm Hg) 2015-02-09 20:27:00 Ed rial [facility]man Diastolic (mm Hg) 2015-02-09 20:27:00 Mem orial Kai Heart Rate 2015-02-09 20:27:00 [facility] Respitory Rate 2015-02-09 20:27:00 Memori al [facility] Systolic (mm Hg) 2015-01-23 23:00:00 Ed rial [facility]man Diastolic (mm Hg) 2015-01-23 23:00:00 Mem orial [facility] Systolic (mm Hg) 2015-01-23 22:00:00 Ed rial Kai Diastolic (mm Hg) 2015-01-23 22:00:00 Mem orial [facility] Systolic (mm Hg) 2015-01-23 21:00:00 Ed rial Kai Diastolic (mm Hg) 2015-01-23 21:00:00 Mem orial [facility] Respitory Rate 2015-01-23 19:15:00 [facility] 2015-01-23 18:26:00 [facility] Height 2015-01-23 18:26:00 185.42 cm [facility] BMI Calculated 2015-01-23 18:26:00 Memori al [facility] Respitory Rate 2015-01-23 18:26:00 Memori al Kai Heart Rate 2015-01-23 18:26:00 [facility] Temperature Oral (F) 2015-01-23 18:26:00 98.5 F [facility] Procedures Procedure Date / Time Performing Clinician Source Performed CT HEAD WO CONTRAST 2021-04-04 04:32:50 Eliud Antunez [facility] XR CERVICAL SPINE 3 VW 2021-04-04 04:21:36 Eliud Antunez [facility] XR SHOULDER 2+ VW RIGHT 2021-04-04 04:21:36 Eliud Antunez [facility] BASIC METABOLIC PANEL 2021-04-04 03:59:00 Eliud Antunez [facility] (NA, K, CL, CO2, Medical Branch GLUCOSE, BUN, CREATININE, CA) CBC WITH DIFF 2021-04-04 03:59:00 Eliud Antunez [facility] NOTICE OF PRIVACY 2021-04-04 03:21:27 Doctor Unassigned, No [facility] Name [facility] Branch CONSENT/REFUSAL FOR 2021-04-04 03:20:48 Doctor Unassigned, No [facility] Name Medical Branch Amputation of Chacorta Quinn toe<sup>1</sup> Blood transfusion Chacorta johnson Plan of Care Planned Activity Planned Date Details Comments Source Future Scheduled 2020-01-[address] [facility] Test 00:00:00 (#1) [code = [facility] INFLUENZA VACCINE (#1)] Future Scheduled 2017-05-[address] [facility] 00:00:00 WELLNESS (YEAR 2 or Medical Center FIRST YEAR if no IPPE) [code = MEDICARE ANNUAL WELLNESS (YEAR 2 or FIRST YEAR if no IPPE)] Future Scheduled 1999-12-[address] [facility] 00:00:00 (procedure) [code = [facility] 37593446] Future Scheduled [address] [facility] 00:00:00 malignant neoplasm Medical C enter of colon (procedure) [code = 379493469] Encounters Start End Encounter Admission Attending Care Care Encounter Source Date/Time Date/Time Type Type Clinicians Facility Department ID 2021-03-02 Inpatient ER [facility] Orthopedics [id number] 02:26:50 [facility] 2021-04-03 2021-04-03 Emergency X [facility] ERT [id number] Univers 21:25:00 23:39:00 ELIUD espinoza [facility] 2021-04-03 2021-04-03 Emergency [facility] [id number] Univers 21:25:00 23:39:00 Eliud CLAY 350.1.13.10 ity of [place] 4.2.7.2.686 [id number] [facility] 084 Branch 2021-04-03 2021-04-03 Orders Doctor LASSITER [id number] Univers 00:00:00 00:00:00 Only Unassigned, BARBARA 350.1.13.10 ity of [place] [facility] 4.2.7.2.686 Ady [id number] [facility] 009 Branch 2020-01-02 2020-01-02 Emergency ER [facility] Emergency [id number] [facility] 06:16:00 06:16:00 2016-04-05 2016-04-06 Outpatient [facility] [id number] Memoria 14:00:00 05:59:00 r Kai The 08 [facility] 2016-03-13 2016-03-14 Emergency nullFlavo [facility] [id number] Memoria 23:41:00 15:51:00 r Kai The 07 [facility] 2016-01-31 2016-02-18 Inpatient nullFlavo [facility] [id number] Memoria 18:47:00 20:15:00 r Kai The 06 [facility] 2015-02-15 2015-02-16 OBS nullFlavo [facility] [id number] Memoria 17:38:00 21:20:00 Observatio r Kai The 05 [facility] 2015-02-09 2015-02-09 EC nullFlavo [facility] [id number] Memoria 20:20:00 21:13:00 Emergency r Kai The [address] [facility] 2015-01-23 2015-01-23 EC nullFlavo [facility] [id number] Memoria 18:23:00 23:13:00 Emergency r Kai The [address] [facility] 2013-10-31 2013-11-30 OP nullFlavo [facility] [id number] Memoria 13:00:00 04:59:00 Recurring r Kai The [facility] Results Test Description Test Time Test Comments Results Result Comments Source BASIC METABOLIC PANEL (NA, K, CL, CO2, GLUCOSE, BUN, 2021-03 05:02:30 CREATININE, CA) Test Item Value Reference Range Interpretation Comme nts NA (test code = 7597758655) 135 mmol/L 135-145 K (test code = 8448254866) 4.0 mmol/L 3.5-5.0 CL (test code = 2249032076) 104 mmol/L 98-108 CO2 TOTAL (test code = 8513853821) 19 mmol/L 23-31 L AGAP (test code = 7971874786) 2-16 BUN (test code = 9084579578) 11 mg/dL 7-23 GLUCOSE (test code = 4216039250) 104 mg/dL 70-110 CREATININE (test code = 0.91 mg/dL 0.60-1.25 1092835729) CALCIUM (test code = 1851662206) 8.8 mg/dL 8.6-10.6 eGFR (test code = 1093957173) mL/min/1.73m2 DELLA (test code = DELLA) Association [...] tests). Lab Interpretation (test code = Abnormal 57359-8) [facility] WITH [id number] 04:48:31 Test Item Value Reference Range Interpretation Comments WBC (test code = See_Comment [Automated 9090-2) message] The sy stem which generated this result transmitted reference range : 4.20 - 10.70 10*3/?L. The reference range was not used to interpret this result as normal/abnormal . RBC (test code = See_Comment L [Automated 789-8) message] The sy stem which generated this [...] RDW-SD (test code = 48.4 fL 38.5-51.6 75446-9) RDW-CV (test code = 13.6 % 12.1-15.4 788-0) PLT (test code = See_Comment [Automated 777-3) message] The sy stem which generated this result transmitted reference range : 150 - 328 10*3/ ?L. The reference r lance was not used to interpret this result as normal/abnormal . MPV (test code = 9.4 fL 9.8-13.0 L 03935-7) NRBC/100 WBC (test See_Comment [Automat ed code = 4544597564) message] The system which generated this result transmitted reference range : 0.0 - 10.0 /100 WBCs. The refer ence range was not u sed to interpret th is result as normal/abnormal . NRBC x10^3 (test code <0.01 See_Comment [Auto mated = 8533426882) message] The s ystem which generated this result transmitted reference range : 10*3/?L. The reference range was not used to interpret this result as normal/abnormal . GRAN MAT (NEUT) % 40.0 % (test code = 770-8) IMM GRAN % (test code 0.70 % = 4642720627) LYMPH % (test code = 42.0 % 736-9) MONO % (test code = 9.4 % 5905-5) EOS % (test code = 7.0 % 713-8) BASO % (test code = 0.9 % 706-2) GRAN MAT x10^3(ANC) 3.99 10*3/uL 1.99-6.95 (test code = 1212704693) IMM GRAN x10^3 (test 0.07 10*3/uL 0.00-0.06 H code = 8085213427) LYMPH x10^3 (test code 4.19 10*3/uL 1.09-3.23 H = 731-0) MONO x10^3 (test code 0.94 10*3/uL 0.36-1.02 = 742-7) EOS x10^3 (test code = 0.70 10*3/uL 0.06-0.53 H 711-2) BASO x10^3 (test code 0.09 10*3/uL 0.01-0.09 = 704-7) Lab Interpretation Abnormal (test code = 94709-5) [facility], WITHOUT CONTRAST, LEFT 2020-01-02 15:45:00FINAL [...] reconstructive technique. Findings: There is anterior inferior dislocationof the left shoulder. Slight flattening of the [...] the humeral head is most likely a boneisland. There is soft tissue edema around the [...] sites. Signed: Delisa Bustillo MDReport Verified Date/Time: 020 15:45:14 Reading Location: [facility] Radiology Reading Room Electronically signed by: DELISA BUSTILLO M.D.on 01/02/2020 03:45 PMSARS-COV2/RT-PCR ([facility]) 2020-01-02 13:11:00 Test Item Value Reference Range Interpretation Comments SARS-COV2/RT-PCR (test Negative Not Detected, Negative, code = 7919957) See external report for linked test SARS-COV-2 PERFORMING LAB [facility] CARLOS MANUEL (test code = 5038355) Negative result for this test determines that [...] justifying the authorization of the emergency use ofin vitro diagnostic tests for detection and/or diagnosis of COVID-19 is terminated under Section 564(b)(2) of the Act or the EUA is revoked under Section 564(g) of the Act.Fact Sheet for Healthcare Prov iders:https://www.[employer]/sites/default/files/product/documents/Fact_Sheet_HC _Rkluvbnsb_Fejm_JDVG-BcU-0.pdfFact Sheet for Healthcare Patients:https://www.[employer]/sites/default/files/product/docume nts/Ywqv_Jdhtf_Tnxzgfir_Dpyp_XQCG-YqF-7.pdfPerforming Laboratory:[facility].[place], [place] [address]ONU, SHOULDER, COMPLETE (MIN 2 VIEWS), [id number] 10:34:00Reason for exam:->ARM INJURYShould this be performed at the bedside?->YesFINAL REPORT RAD, SHOULDER, COMPLETE (MIN 2 VIEWS), LEFT INDICATION: ARM INJURYCOMPARISON: 2 hours prior TECHNIQUE: Single frontal view of the left shoulder. IMPRESSION: Redemonstration of chronic changes in the anteriorly displaced humeral head. Glenoid rim appears preserved. Acromioclavicular joint remains intact. Signed: JR Moreira Robert MDReport Verified Date/Time: 01/02/2020 10:34:05 Reading Location: [facility] Radiology Reading Room [id number] 09:03:00 Test Item Value Reference Range Interpretation [...] is 2.5-3.5 for patients wiht mechanical heart valves.COMPREHENSIVE METABOLIC [...] S NOT APPLICABLE FOR DIALYSIS PATIEN TS. Access Representative ID - EDASICBC W/PLT COUNT & AUTO [id number] 08:30:00 Test Item Value Reference Range Interpretation [...] 2801) RAD, SHOULDER, COMPLETE (MIN 2 VIEWS), [id number] 07:45:00Reason for exam:- >ARM INJURYFINAL REPORT RAD, SHOULDER, COMPLETE (MIN 2 VIEWS), LEFT COMPARISON: None INDICATION: ARM INJURY FINDINGS: AP views in internal and external rotation and an axillary "Y" view of the left shoulder. IMPRESSION: Dislocation at the glenohumeral joint with anterior positioning of the humeral head. Hill-Sachs deformity is of indeterminate chronicity. The glenoid rim appears intact. Acromioclavicular joint is normally aligned. Signed: JR Moreira Robert MDReport Verified Date/Time: 01/02/2020 07:45:57 Reading Location: [facility] Radiology Reading Room BLOOD [id number] 02:00:00 Test Item Value Reference Range Interpretation Comments CULTURE (BEAKER) (test No growth in 5 days code = 1095) BLOOD [id number] 20:01:00 Test Item Value Reference Range Interpretation Comments CULTURE (BEAKER) (test No growth in 5 days code = 1095) EEG AWAKE AND [id number] 14:49:00Reason for exam:->seizuresDate(s) of EE10/14/18DATE OF REPORT: 10/14/18ACC: [id number] Number: [id number] time: 13:36Stop time: 13:57ICD-10: R56.9 Unspecified ConvulsionsCPT Code: 67600 EEG: awake and drowsy <40 min HISTORY: [...] bipolar and referential montages using the modified combinatorialsystem nomenclature. DESCRIPTION OF RECORD:During the maximally alert [...] Indigo Zabala MDNeurophysiology Fellow Mario Castorenaurophysiology/Epilepsy Attending [facility] METABOLIC [id number] 07:41:00 Test Item Value Reference Range Interpretation [...] PATIEN TS. CBC W/PLT COUNT & AUTO [id number] 05:30:00 Test Item Value Reference Range Interpretation [...] (test code = 2801) VITAMIN B12 AND [id number] 19:46:00 Test Item Value Reference Range Interpretation Comments VITAMIN B12 (BEAKER) (test code = 683 pg/mL 213-816 774) FOLATE (BEAKER) (test code = 362) > ng/mL >=7.0 [id number] 17:59:00 Test Item Value Reference Range Interpretation Comments PHOSPHORUS (BEAKER) (test code = 4.0 mg/dL 2.3-4.7 604) [id number] 17:59:00 Test Item Value Reference Range Interpretation Comments MAGNESIUM (BEAKER) (test code = 2.5 mg/dL 1.6-2.6 627) CT, BRAIN, WITHOUT [id number] 16:58:00FINAL REPORT CT head without contrast. Reason for exam: Seizures new or progressive Comparisons: No priors Discussion: Multiple axial CT images of the head are provided without contrast evaluated in brain and bone windows. This exam was performed according to our departmental doseoptimization program which includes automated exposure control, adjustment [...] evidence of intracranial hemorrhage, mass-effect, hydrocephalus, shift, orextra-axial collections. The visualized orbital contents, bones and surrounding soft tissues are unremarkable. The visualized paranasal sinuses and mastoid air cells are unremarkable. Impressions: No CT evidence of acute intracranial process. Involutional and chronic microvascular ischemic changes. Signed: Delisa Bustilloeport Verified Date/Time: 10/12/2018 16:58:56 Reading Location: [facility] C013V Neuro Reading Room URINALYSIS W/ [id number] 16:25:00 Test Item Value Reference Range Interpretation [...] 516) SOURCE(BEAKER) (test code = Urine, Voided 9975) BLOOD [id number] 10:00:00 Test Item Value Reference Range Interpretation Comments CULTURE (BEAKER) (test No growth in 5 days code = 1095) STOOL CULTURE + SHIGA [id number] 09:59:00 Test Item Value Reference Range Interpretation Comments CULTURE (BEAKER) No Salmonella, Shigella (test code = 1095) or Campylobacter isolated STOOL PATH [id number] 09:01:00 Test Item Value Reference Range Interpretation Comments PATHOGEN EXAM CHARGED (BEAKER) (test Done code = 3969) BASIC METABOLIC [id number] 06:59:00 Test Item Value Reference Range Interpretation [...] APPLICABLE FOR DIALYSIS PATIEN TS. SHIGA TOXIN [id number] 15:48:00 Test Item Value Reference Range Interpretation Comments SHIGA TOXIN 1 (BEAKER) (test Not detected Not detected code = 2177) SHIGA TOXIN 2 (BEAKER) (test Not detected Not detected code = 2179) CLOSTRIDIUM DIFFICILE TOXIN [id number] 15:13:00 Test Item Value Reference Range Interpretation [...] formed stools will be rejected unless ileus ispresent (i.e., specified when ordering). Patients may be colonized with toxigenic C.difficile strains not causing active disease; therefore, clinical correlation is needed when deciding how to manage patients with a positive test result.The assay has not been validated as a test of cure as amplifiablenucleic acid may persist after effective treatment; therefore, follow-up testing of a positive result is not recommended.BLOOD GAS, [id number] 11:03:00 Test Item Value Reference Range Interpretation [...] code = 1819) 21.0 % BASIC METABOLIC [id number] 05:14:00 Test Item Value Reference Range Interpretation [...] NOT APPLICABLE FOR DIALYSIS PATIEN TS. PTH, [id number] 05:03:00 Test Item Value Reference Range Interpretation Comments PARATHYROID HORMONE INTACT 41.8 pg/mL 8.5-72.5 (BEAKER) (test code = 577) BASIC METABOLIC [id number] 07:10:00 Test Item Value Reference Range Interpretation [...] APPLICABLE FOR DIALYSIS PATIEN TS. SODIUM, RANDOM [id number] 06:58:00 Test Item Value Reference Range Interpretation Comments SODIUM URINE (BEAKER) (test code = 65 meq/L 243) Reference Range: No NormalsPROTHROMBIN [id number] 06:47:00 Test Item Value Reference Range Interpretation Comments PROTIME (BEAKER) (test code = 14.5 seconds 11.7-14.7 759) INR (BEAKER) (test code = 370) 1.1 <=5.9 RECOMMENDED COUMADIN/WARFARIN INR THERAPY RANGESSTANDARD DOSE: 2.0 - 3.0 Includes: PROPHYLAXIS for venous thrombosis, systemic embolization; TREATMENT for venous thrombosis and/or pulmonary embolus.HIGH RISK: Target INR is 2.5-3.5 for patients with mechanical heart valves.RAPID DRUG SCREEN, [id number] 15:43:00 Test Item Value Reference Range Interpretation [...] unconfirmed qualitative test result for the clinical managementof patients in emergency situations. Chain of custody not maintained. Some jmtq-gfu-xxomwvd medications, as well as adulterants, may cause inaccurate results. Clinical correlation should be applied. A more comprehensive drug screen or confirmation of a detected drug may be performed upon request.URINE [id number] 14:33:00 Test Item Value Reference Range Interpretation Comments CULTURE (BEAKER) (test code = 1095) No growth BASIC METABOLIC [id number] 08:09:00 Test Item Value Reference Range Interpretation [...] PATIEN TS. CBC W/PLT COUNT & AUTO [id number] 06:38:00 Test Item Value Reference Range Interpretation [...] (BEAKER) (test code = 2801) U/S, RENAL, [id number] 22:34:00Reason for exam:->acute kidney injury FINAL REPORT Renal ultrasound. Clinical History: acute kidney injury. Comparison Study: None. Findings: The right kidney measures 11.7 x 6.4 x 6.6 cm and left kidney measures 12.7 x 6.8 x 6.2 cm. There is no evidence of hydronephrosis, nephrolithiasis or renal mass on either side.The echogenicity is normal bilaterally. The cortical thickness on the right side is 1.8 cm and on the left side is 1.9 cm. Color flow is documented to both kidneys. The bladder is partially filled withurine. Impression: Morphologically normal appearing kidneys bilaterally with no evidence of hydronephrosis. Signed: Zion Jack Verified Date/Time: 04/17/2017 22:34:25 Reading Location: [address] Consult Reading Room MR, BRAIN, WITHOUT [id number] 19:18:00Reason for exam:->Stroke evaluationFINAL REPORT MRI Brain without contrast Clinical History: EpilepsyStroke evaluation Technique: MRI of the brain utilizing axial T2, FLAIR, GRE, DWI; coronal T1, T2, FLAIR; sagittalT1-weighted images. Comparisons: None Findings: There is no evidence of acute infarct or hemorrhage.There is periventricular and subcortical white matter T2 [...] Nelson Verified Date/Time: 04/17/2017 19:18:34 Reading Location: [facility] Radiology Reading Room EEG MONITORING WITH VIDEO RECORDING EACH 24 [id number] 18:01:00DATE OF TEST: 04/17/2017 DATE OF REPORT 04/17/2017 ACC: [id number] EE Start time: 16:42 Stoptime: 18:44 ICD-10: R56.9 CPT Code: 73918 HISTORY: 51 y/o woman with history of [...] the background consists of 2-3 Hz delta intermixedwith 4-8 Hz alpha and theta activity and [...] Shahnaz Davis MD Neurophysiology Attending URINALYSIS W/ MICROSCOPIC 2017-04-17 11:57:00 Test Item Value Reference Range Interpretation [...] 1583) SOURCE(BEAKER) (test code = Urine, Cooper 7899) EOSINOPHIL SMEAR, [id number] 11:56:00 Test Item Value Reference Range Interpretation Comments EOSINOPHIL SMEAR, URINE (BEAKER) No EOS seen No EOS seen (test code = 1851) CREATININE, RANDOM [id number] 11:24:00 Test Item Value Reference Range Interpretation Comments CREATININE URINE (BEAKER) (test 69.7 mg/dL code = 375) Reference Range: No NormalsSODIUM, RANDOM [id number] 11:24:00 Test Item Value Reference Range Interpretation Comments SODIUM URINE (BEAKER) (test code = 58 meq/L 243) Reference Range: No NormalsUREA NITROGEN, RANDOM [id number] 11:24:00 Test Item Value Reference Range Interpretation Comments UREA NITROGEN URINE (BEAKER) (test 172 mg/dL code = 538) Reference Range: No NormalsCREATINE KINASE (CK)2017-04-17 11:06:00 Test Item Value Reference Range Interpretation Comments CREATINE KINASE TOTAL (BEAKER) (test 136 U/L 29-200 code = 380) BASIC METABOLIC [id number] 04:53:00 Test Item Value Reference Range Interpretation [...] PATIEN TS. CBC W/PLT COUNT & AUTO [id number] 04:19:00 Test Item Value Reference Range Interpretation [...] EEG MONITORING WITH VIDEO RECORDING EACH 24 [id number] 17:57:00DATE OF TEST: 04/16/2017DATE OF REPORT 04/16/2017 ACC: [id number]: Start time: 08:42 Stop time: 16:42ICD-10: R56.9CPT Code: [id number]: 51 y/o woman with history of epilepsy [...] 12-14 Hz beta frequency activities. The EEG demonstratesspontaneous variability. No normal sleep structures are present. HV: Hyperventilation was not performed. PHOTIC STIMULATION: Flash stimulation was not done.IMPRESSION: Abnormal EEG due to: 1. Mild to moderate diffuse slowing 2. Excessive beta activity CLINICAL CORRELATION: The diffuse slowing in this record is consistent with a mild to moderate degree of encephalopathy. The excessive beta activity islikely related to medications, thus the degree of encephalopathy in the record may be in part due topharmacological sedation. An EEG without epileptiform discharges does not exclude the possibility ofepilepsy. When compared to the prior EEG, this EEG demonstrates improvement in the degree of encephalopathy.Aixa Reis M.D.Neurophysiology FellowAttending note: I personally reviewed this EEG record in tis entirety and I agree with the details of this report.Phoebe Hassan MDEpilepsy Attending EEG AWAKE/ASLEEP AND [id number] 13:27:00Reason for exam:->status epilepticusDATE OF TEST: 04/16/2017DATE OF REPORT 04/16/2017 ACC: [id number] EEStart time: 08:21 Stop time: 08:42ICD-10: R56.9CPT Code: [id number]: 51 y/o woman with history of epilepsy [...] this report.Phoebe Hassan MDEpilepsy Attending HEPATIC FUNCTION [id number] 12:59:00 Test Item Value Reference Range Interpretation [...] 347) hemolyzed RAD, CHEST, 1 VIEW, NON [id number] 09:16:00Reason for exam:- >intubatedShould this be performed [...] Doe Verified Date/Time: 04/16/2017 09:16:32 Reading Location: [facility] Reading Room VITAMIN [id number] 07:31:00 Test Item Value Reference Range Interpretation Comments VITAMIN B12 (BEAKER) (test code = 450 pg/mL 463-173 641) FOLATE, [id number] 07:31:00 Test Item Value Reference Range Interpretation Comments FOLATE (BEAKER) (test code = 362) 8.0 ng/mL >=7.0 URINALYSIS W/ [id number] 07:09:00 Test Item Value Reference Range Interpretation [...] code = 514) SOURCE(BEAKER) (test code = 2594) [id number] 05:59:00 Test Item Value Reference Range Interpretation Comments MAGNESIUM (BEAKER) 3.0 mg/dL 1.6-2.6 H Specimen moderately (test code = 627) hemolyzed [id number] 05:59:00 Test Item Value Reference Range Interpretation Comments PHOSPHORUS (BEAKER) 3.0 mg/dL 2.3-4.7 Specimen moderately (test code = 604) hemolyzed BASIC METABOLIC [id number] 05:59:00 Test Item Value Reference Range Interpretation [...] NOT APPLICABLE FOR DIALYSIS PATIEN TS. PROTHROMBIN TIME/[id number] 05:33:00 Test Item Value Reference Range Interpretation Comments PROTIME (BEAKER) (test code = 15.7 seconds 11.7-14.7 H 759) INR (BEAKER) (test code = 370) 1.3 <=5.9 RECOMMENDED COUMADIN/WARFARIN INR THERAPY RANGESSTANDARD DOSE: 2.0 - 3.0 Includes: PROPHYLAXIS for venous thrombosis, systemic embolization; TREATMENT for venous thrombosis and/or pulmonary embolus.HIGH RISK: Target INR is 2.5-3.5 for patients with mechanical heart valves.BLOOD GAS, [id number] 05:31:00 Test Item Value Reference Range Interpretation [...] 60.0 % CBC W/PLT COUNT & AUTO [id number] 05:08:00 Test Item Value Reference Range Interpretation [...] (BEAKER) (test code = 2801) BLOOD BANK [id number] 17:22:00 Test Item Value Reference Range Interpretation Comments RBC product (test code Product available = RBC product) (04/04/16 11:22 AM) [facility] [id number] 17:20:00 Test Item Value Reference Range Interpretation Comments ABO/Rh (test code = ABO/Rh) B POS [facility] [id number] 17:20:00 Test Item Value Reference Range Interpretation Comments Antibody Scrn (test Negative (04/04/16 code = Antibody Scrn) 11:20 AM) [facility] AND [id number] 07:08:00 Test Item Value Reference Range Interpretation Comments UA Urobilinogen (test code = UA <=1.0 mg/dL 0.1-1.0 Urobilinogen) [facility] AND [id number] 07:08:00 Test Item Value Reference Range Interpretation Comments UA RBC (test code = 1 See_Comment [Automa meet message] The UA RBC) system which ge nerated this result transmit meet reference range : <=2. The reference range was not used to interpr et this result as reggie l/abnormal. [facility] AND [id number] 07:08:00 Test Item Value Reference Range Interpretation Comments UA WBC (test code = 3 See_Comment [Automa meet message] The UA WBC) system which ge nerated this result transmit meet reference range : <=5. The reference range was not used to interpr et this result as reggie l/abnormal. [facility] AND [id number] 07:08:00 Test Item Value Reference Range Interpretation Comments UA Sq Epi (test code = UA Sq Epi) [facility] [id number] 07:08:00 Test Item Value Reference Range Interpretation Comments UA Mucus (test code = UA Mucus) [facility] [id number] 07:08:00 Test Item Value Reference Range Interpretation Comments UA Leuk Est (test Negative (03/14/16 2:08 code = UA Leuk Est) AM) [facility] AND [id number] 07:08:00 Test Item Value Reference Range Interpretation Comments UA Protein (test code = UA Negative mg/dL Protein) [facility] [id number] 07:08:00 Test Item Value Reference Range Interpretation Comments UA pH (test code = UA pH) 5.0 5.0-8.0 [facility] [id number] 07:08:00 Test Item Value Reference Range Interpretation Comments UA Spec Grav (test code = UA Spec Grav) 1.009 [facility] AND [id number] 07:08:00 Test Item Value Reference Range Interpretation Comments UA Turbidity (test code = Clear (03/14/16 2:08 UA Turbidity) AM) [facility] AND [id number] 07:08:00 Test Item Value Reference Range Interpretation Comments UA Ketones (test code = UA Negative mg/dL Ketones) [facility] AND [id number] 07:08:00 Test Item Value Reference Range Interpretation Comments UA Glucose (test code = UA Negative mg/dL Glucose) [facility] AND [id number] 07:08:00 Test Item Value Reference Range Interpretation Comments UA Color (test code = Yellow *NA*(03/14/16 UA Color) 2:08 AM) [facility] AND [id number] 07:08:00 Test Item Value Reference Range Interpretation Comments UA Nitrite (test code Negative (03/14/16 2:08 = UA Nitrite) AM) [facility] AND [id number] 07:08:00 Test Item Value Reference Range Interpretation Comments UA Blood (test code = Negative (03/14/16 2:08 UA Blood) AM) [facility] AND [id number] 07:08:00 Test Item Value Reference Range Interpretation Comments UA Bili (test code = Negative *NA*(03/14/16 UA Bili) 2:08 AM) [facility] [id number] 05:40:00 Test Item Value Reference Range Interpretation Comments Lactic Acid Lvl (test code = Lactic 0.8 0.5-2.2 Acid Lvl) [facility] [id number] 05:20:00 Test Item Value Reference Range Interpretation Comments Procalcitonin Lvl <0.05 ng/mL See_Comment [Automate d message] (test code = The system whic h Procalcitonin Lvl) generated this result transmit meet reference range : <=0.10. The reference range was not used to interpret this result as normal/abnormal . [facility]WijnvvpJBFIBXEGWY5278-18-55 02:07:00 Test Item Value Reference Range Interpretation Comments Lymphocytes # (test code = Lymphocytes 1.0 1.0-5.5 #) [facility] 02:07:00 Test Item Value Reference Range Interpretation Comments Monocytes # (test code 0.4 See_Comment [Aut omated message] The = Monocytes #) system which generated this result tra nsmitted reference range : <=0.8. The reference r lance was not used to int erpret this result as normal/abnormal . [facility]TxruommQZGJQRINTG9266-21-27 02:07:00 Test Item Value Reference Range Interpretation Comments Eosinophils # (test code 0.1 See_Comment [A utomated message] The = Eosinophils #) system [employer] generated this result tra nsmitted reference range : <=0.5. The reference r lance was not used to int erpret this result as normal/abnormal . [facility] [id number] 02:07:00 Test Item Value Reference Range Interpretation Comments Antibody Scrn (test Negative (03/13/16 code = Antibody Scrn) 9:07 PM) [facility] [id number] 02:07:00 Test Item Value Reference Range Interpretation Comments ABO/Rh (test code = ABO/Rh) B POS [facility] [id number] 02:07:00 Test Item Value Reference Range Interpretation Comments eGFR (test code = eGFR) 43 [facility] [id number] 02:07:00 Test Item Value Reference Range Interpretation Comments BUN (test code = BUN) 21 7-22 [facility] [employer] [id number] 02:07:00 Test Item Value Reference Range Interpretation Comments Creatinine Lvl (test code = Creatinine 1.79 0.50-1.40 Lvl) [facility] [id number] 02:07:00 Test Item Value Reference Range Interpretation Comments Alk Phos (test code = Alk Phos) 95 39-136 [facility] [id number] 02:07:00 Test Item Value Reference Range Interpretation Comments Bili Total (test code = Bili Total) 0.3 0.2-1.3 [facility]2016-10-18 02:07:00 Test Item Value Reference Range Interpretation Comments AST (test code = AST) 39 See_Comment [Auto mated message] The system which ge nerated this result transmit meet reference range : <=37. The reference range was not used to interpr et this result as reggie l/abnormal. [facility]2016-10-18 02:07:00 Test Item Value Reference Range Interpretation Comments ALT (test code = ALT) 59 See_Comment [Auto mated message] The system which ge nerated this result transmit meet reference range : <=65. The reference range was not used to interpr et this result as reggie l/abnormal. [facility]2016-10-18 02:07:00 Test Item Value Reference Range Interpretation Comments Sodium Lvl (test code = Sodium Lvl) 139 135-145 [facility]2016-10-18 02:07:00 Test Item Value Reference Range Interpretation Comments Total Protein (test code = Total 7.8 6.4-8.4 Protein) [facility]2016-10-18 02:07:00 Test Item Value Reference Range Interpretation Comments Albumin Lvl (test code = Albumin Lvl) 2.5 3.5-5.0 [facility]2016-10-18 02:07:00 Test Item Value Reference Range Interpretation Comments Glucose Lvl (test code = Glucose Lvl) 120 70-99 [facility]2016-10-18 02:07:00 Test Item Value Reference Range Interpretation Comments Chloride Lvl (test code = Chloride Lvl) 106 95-109 [facility]2016-10-18 02:07:00 Test Item Value Reference Range Interpretation Comments CO2 (test code = CO2) 21 24-32 [facility]2016-10-18 02:07:00 Test Item Value Reference Range Interpretation Comments Calcium Lvl (test code = Calcium Lvl) 10.1 8.5-10.5 [facility]2016-10-18 02:07:00 Test Item Value Reference Range Interpretation Comments Potassium Lvl (test code = Potassium 3.3 3.5-5.1 Lvl) [facility]2016-10-18 02:07:00 Test Item Value Reference Range Interpretation Comments A/G Ratio (test code = A/G Ratio) 0.5 0.7-1.6 [facility]2016-10-18 02:07:00 Test Item Value Reference Range Interpretation Comments Globulin (test code = Globulin) 5.3 2.7-4.2 [facility]2016-10-18 02:07:00 Test Item Value Reference Range Interpretation Comments B/C Ratio (test code = B/C Ratio) 12 6-25 [facility]2016-10-18 02:07:00 Test Item Value Reference Range Interpretation Comments AGAP (test code = AGAP) 15.3 10.0-20.0 [facility]PilyobvTXTRAMCULV5592-32-76 02:07:00 Test Item Value Reference Range Interpretation Comments MPV (test code = MPV) 7.4 7.4-10.4 [facility]JhbufkwHUEYMGDTIS8732-86-90 02:07:00 Test Item Value Reference Range Interpretation Comments WBC (test code = WBC) 7.3 3.7-10.4 [facility]CirkjpcVYYHZVYJKP3601-15-20 02:07:00 Test Item Value Reference Range Interpretation Comments MCV (test code = MCV) 88.5 80.0-94.0 [facility]MrjmyvrWRWSADZTLH6148-62-16 02:07:00 Test Item Value Reference Range Interpretation Comments RBC (test code = RBC) 3.00 4.70-6.10 [facility]FvayakqBVIRRRZEVP4977-47-00 02:07:00 Test Item Value Reference Range Interpretation Comments Hct (test code = Hct) 26.5 42.0-54.0 [facility]CizpytfULLNVWNSEA0170-29-14 02:07:00 Test Item Value Reference Range Interpretation Comments Hgb (test code = Hgb) 8.8 14.0-18.0 [facility]WiaiatpDOMPYBZKWT9692-58-83 02:07:00 Test Item Value Reference Range Interpretation Comments MCHC (test code = MCHC) 33.1 32.0-36.0 [facility]OwbpqxxPLIQNFLULE8744-33-33 02:07:00 Test Item Value Reference Range Interpretation Comments MCH (test code = MCH) 29.3 pg 27.0-31.0 [place] [id number] 02:07:00 Test Item Value Reference Range Interpretation Comments Platelet (test code = Platelet) 241 133-450 [facility]TycvdgcJGSTAAQKFG5854-89-70 02:07:00 Test Item Value Reference Range Interpretation Comments RDW (test code = RDW) 15.5 11.5-14.5 [facility]YvirqpaMCSLYCDCTL8449-87-99 02:07:00 Test Item Value Reference Range Interpretation Comments Basophils # (test code 0.1 See_Comment [Aut omated message] The = Basophils #) system which generated this result tra nsmitted reference range : <=0.2. The reference r lance was not used to int erpret this result as normal/abnormal . [facility]UutlsrdJPJYBAYQSX3795-08-14 02:07:00 Test Item Value Reference Range Interpretation Comments Lymphocytes (test code = Lymphocytes) 14.3 20.0-40.0 [facility]JcgwbrcNODMBFZZCW4882-79-46 02:07:00 Test Item Value Reference Range Interpretation Comments Eosinophils (test code = 1.9 See_Comment [A utomated message] The Eosinophils) system which ge nerated this result tra nsmitted reference range : <=4.0. The reference r lance was not used to int erpret this result as normal/abnormal . [facility]EtcckztDJHCBZXOPP3265-14-40 02:07:00 Test Item Value Reference Range Interpretation Comments Segs (test code = Segs) 77.1 45.0-75.0 [facility]KaylneeYJSTBWDHHI7869-47-12 02:07:00 Test Item Value Reference Range Interpretation Comments Monocytes (test code = Monocytes) 5.3 2.0-12.0 [facility]JerjivrDRCSIMAYUE2168-24-84 02:07:00 Test Item Value Reference Range Interpretation Comments Basophils (test code = 1.4 See_Comment [Aut omated message] The Basophils) system which ge nerated this result tra nsmitted reference range : <=1.0. The reference r lance was not used to int erpret this result as normal/abnormal . [facility]HealthZxouwloAJWWHCAJZU2594-25-37 02:07:00 Test Item Value Reference Range Interpretation Comments Segs-Bands # (test code = Segs-Bands #) 5.6 1.5-8.1 [facility]2016-09-21 09:04:00 Test Item Value Reference Range Interpretation Comments UIBC (test code = UIBC) 174 110-370 [facility]2016-09-21 09:04:00 Test Item Value Reference Range Interpretation Comments TIBC (test code = TIBC) 196 228-428 [facility]2016-09-21 09:04:00 Test Item Value Reference Range Interpretation Comments Iron (test code = Iron) 22 45-160 [facility]2016-09-21 09:04:00 Test Item Value Reference Range Interpretation Comments % Satur Fe (test code = % Satur Fe) 11 12-57 [facility]2016-09-20 15:50:00 Test Item Value Reference Range Interpretation Comments eGFR (test code = eGFR) 57 [facility]2016-09-20 15:50:00 Test Item Value Reference Range Interpretation Comments AGAP (test code = AGAP) 14.7 10.0-20.0 [facility]2016-09-20 15:50:00 Test Item Value Reference Range Interpretation Comments Calcium Lvl (test code = Calcium Lvl) 8.7 8.5-10.5 [facility]2016-09-20 15:50:00 Test Item Value Reference Range Interpretation Comments CO2 (test code = CO2) 24 24-32 [facility]2016-09-20 15:50:00 Test Item Value Reference Range Interpretation Comments Chloride Lvl (test code = Chloride Lvl) 99 95-109 [facility]2016-09-20 15:50:00 Test Item Value Reference Range Interpretation Comments Potassium Lvl (test code = Potassium 3.7 3.5-5.1 Lvl) [facility]2016-09-20 15:50:00 Test Item Value Reference Range Interpretation Comments BUN (test code = BUN) 16 7-22 [facility]2016-09-20 15:50:00 Test Item Value Reference Range Interpretation Comments Glucose Lvl (test code = Glucose Lvl) 128 70-99 [facility]2016-09-20 15:50:00 Test Item Value Reference Range Interpretation Comments Sodium Lvl (test code = Sodium Lvl) 134 135-145 [facility]2016-09-20 15:50:00 Test Item Value Reference Range Interpretation Comments Creatinine Lvl (test code = Creatinine 1.42 0.50-1.40 Lvl) [facility]2016-09-19 09:45:00 Test Item Value Reference Range Interpretation Comments eGFR (test code = eGFR) 51 [facility]2016-09-19 09:45:00 Test Item Value Reference Range Interpretation Comments Bili Total (test code = Bili Total) 0.8 0.2-1.3 [place] 020826-09-19 09:45:00 Test Item Value Reference Range Interpretation Comments ALT (test code = ALT) 25 See_Comment [Auto mated message] The system which ge nerated this result transmit meet reference range : <=65. The reference range was not used to interpr et this result as reggie l/abnormal. [place] 020826-09-19 09:45:00 Test Item Value Reference Range Interpretation Comments AST (test code = AST) 15 See_Comment [Auto mated message] The system which ge nerated this result transmit meet reference range : <=37. The reference range was not used to interpr et this result as reggie l/abnormal. [place] 020826-09-19 09:45:00 Test Item Value Reference Range Interpretation Comments Alk Phos (test code = Alk Phos) 62 39-136 [place] 020826-09-19 09:45:00 Test Item Value Reference Range Interpretation Comments Globulin (test code = Globulin) 4.8 2.7-4.2 [place] 020826-09-19 09:45:00 Test Item Value Reference Range Interpretation Comments A/G Ratio (test code = A/G Ratio) 0.5 0.7-1.6 [place] 020826-09-19 09:45:00 Test Item Value Reference Range Interpretation Comments Calcium Lvl (test code = Calcium Lvl) 9.0 8.5-10.5 [place] 020826-09-19 09:45:00 Test Item Value Reference Range Interpretation Comments Glucose Lvl (test code = Glucose Lvl) 109 70-99 [place] 020826-09-19 09:45:00 Test Item Value Reference Range Interpretation Comments CO2 (test code = CO2) 24 24-32 [place] 020826-09-19 09:45:00 Test Item Value Reference Range Interpretation Comments Chloride Lvl (test code = Chloride Lvl) 101 95-109 [facility]2016-09-19 09:45:00 Test Item Value Reference Range Interpretation Comments BUN (test code = BUN) 17 7-22 [facility]2016-09-19 09:45:00 Test Item Value Reference Range Interpretation Comments Potassium Lvl (test code = Potassium 4.1 3.5-5.1 Lvl) [facility]2016-09-19 09:45:00 Test Item Value Reference Range Interpretation Comments AGAP (test code = AGAP) 14.1 10.0-20.0 [place] 020826-09-19 09:45:00 Test Item Value Reference Range Interpretation Comments Albumin Lvl (test code = Albumin Lvl) 2.3 3.5-5.0 [place] 020826-09-19 09:45:00 Test Item Value Reference Range Interpretation Comments Total Protein (test code = Total 7.1 6.4-8.4 Protein) [facility]2016-09-19 09:45:00 Test Item Value Reference Range Interpretation Comments Creatinine Lvl (test code = Creatinine 1.55 0.50-1.40 Lvl) [facility]2016-09-19 09:45:00 Test Item Value Reference Range Interpretation Comments Sodium Lvl (test code = Sodium Lvl) 135 135-145 [place] 020826-09-19 09:45:00 Test Item Value Reference Range Interpretation Comments B/C Ratio (test code = B/C Ratio) 11 6-25 [place] 598866-09-19 09:45:00 Test Item Value Reference Range Interpretation Comments MPV (test code = MPV) 7.7 7.4-10.4 [place] [address]-09-19 09:45:00 Test Item Value Reference Range Interpretation Comments Hct (test code = Hct) 25.4 42.0-54.0 [facility]UyxakkaQXZRXAEDFN9668-72-05 09:45:00 Test Item Value Reference Range Interpretation Comments MCH (test code = MCH) 32.7 pg 27.0-31.0 [place] 598866-09-19 09:45:00 Test Item Value Reference Range Interpretation Comments MCV (test code = MCV) 96.6 80.0-94.0 [facility]JzkeyqqSNGRSWYCDG5736-99-65 09:45:00 Test Item Value Reference Range Interpretation Comments Platelet (test code = Platelet) 296 133-450 [facility]MqzrwdvZNWDXORPYK2865-20-53 09:45:00 Test Item Value Reference Range Interpretation Comments RDW (test code = RDW) 14.7 11.5-14.5 [facility]NhxnwiqNUZCICWDBC9827-38-83 09:45:00 Test Item Value Reference Range Interpretation Comments MCHC (test code = MCHC) 33.8 32.0-36.0 [facility]QchcfmpFZWMISABXR4026-23-10 09:45:00 Test Item Value Reference Range Interpretation Comments WBC (test code = WBC) 8.4 3.7-10.4 [facility]YtynpmwLVJTQDUUBA1446-60-67 09:45:00 Test Item Value Reference Range Interpretation Comments Hgb (test code = Hgb) 8.6 14.0-18.0 [facility]AxkuagdECCFXSNCOU0246-79-30 09:45:00 Test Item Value Reference Range Interpretation Comments RBC (test code = RBC) 2.63 4.70-6.10 [facility]CvealeuILOWZJDXRI3976-49-38 09:45:00 Test Item Value Reference Range Interpretation Comments Lymphocytes # (test code = Lymphocytes 1.5 1.0-5.5 #) [facility]GyapzmdWEDRAUKMYQ2751-82-55 09:45:00 Test Item Value Reference Range Interpretation Comments Eosinophils # (test code 0.2 See_Comment [A utomated message] The = Eosinophils #) system whic h generated this result tra nsmitted reference range : <=0.5. The reference r lance was not used to int erpret this result as normal/abnormal . [facility]PpfskezXWQJISHXJD7419-65-14 09:45:00 Test Item Value Reference Range Interpretation Comments Monocytes # (test code 0.8 See_Comment [Aut omated message] The = Monocytes #) system which generated this result tra nsmitted reference range : <=0.8. The reference r lance was not used to int erpret this result as normal/abnormal . [facility]VddrqrvZJCADGRWKP0815-68-23 09:45:00 Test Item Value Reference Range Interpretation Comments Basophils # (test code 0.1 See_Comment [Aut omated message] The = Basophils #) system which generated this result tra nsmitted reference range : <=0.2. The reference r lance was not used to int erpret this result as normal/abnormal . [facility]OkwvqlrPYJEOBWAIC0934-38-24 09:45:00 Test Item Value Reference Range Interpretation Comments Monocytes (test code = Monocytes) 9.9 2.0-12.0 [facility]250[facility]:00 Test Item Value Reference Range Interpretation Comments Lymphocytes (test code = Lymphocytes) 17.2 20.0-40.0 [facility]IyxhwugREGCLHFGXN5943-50-84 09:45:00 Test Item Value Reference Range Interpretation Comments Segs (test code = Segs) 69.8 45.0-75.0 [facility]QkfpvzmVVQPSBXWDD3455-34-48 09:45:00 Test Item Value Reference Range Interpretation Comments Eosinophils (test code = 2.2 See_Comment [A utomated message] The Eosinophils) system which ge nerated this result tra nsmitted reference range : <=4.0. The reference r lance was not used to int erpret this result as normal/abnormal . [facility]UkyhcylGTHWXACWEZ8746-42-89 09:45:00 Test Item Value Reference Range Interpretation Comments Segs-Bands # (test code = Segs-Bands #) 5.9 1.5-8.1 [facility]TinyezsPSIHGPTLXB0849-56-43 09:45:00 Test Item Value Reference Range Interpretation Comments Basophils (test code = 0.9 See_Comment [Aut omated message] The Basophils) system which ge nerated this result tra nsmitted reference range : <=1.0. The reference r lance was not used to int erpret this result as normal/abnormal . [place] [id number] 09:45:00 Test Item Value Reference Range Interpretation Comments Vanco Tr (test code = Vanco Tr) 14.8 [place] [id number] 09:45:00 Test Item Value Reference Range Interpretation Comments Vanco Tr TND (test code = Vanco Tr TND) TBD [facility]2016-09-18 09:54:00 Test Item Value Reference Range Interpretation Comments Total Protein (test code = Total 6.3 6.4-8.4 Protein) [place] 020826-09-18 09:54:00 Test Item Value Reference Range Interpretation Comments A/G Ratio (test code = A/G Ratio) 0.7 0.7-1.6 [place] 020826-09-18 09:54:00 Test Item Value Reference Range Interpretation Comments B/C Ratio (test code = B/C Ratio) 12 6-25 [place] 020826-09-18 09:54:00 Test Item Value Reference Range Interpretation Comments Globulin (test code = Globulin) 3.8 2.7-4.2 [place] 020826-09-18 09:54:00 Test Item Value Reference Range Interpretation Comments AST (test code = AST) 12 See_Comment [Auto mated message] The system which ge nerated this result transmit meet reference range : <=37. The reference range was not used to interpr et this result as reggie l/abnormal. [place] 020826-09-18 09:54:00 Test Item Value Reference Range Interpretation Comments Alk Phos (test code = Alk Phos) 61 39-136 [facility]2016-09-18 09:54:00 Test Item Value Reference Range Interpretation Comments Albumin Lvl (test code = Albumin Lvl) 2.5 3.5-5.0 [facility]2016-09-18 09:54:00 Test Item Value Reference Range Interpretation Comments ALT (test code = ALT) 26 See_Comment [Auto mated message] The system which ge nerated this result transmit meet reference range : <=65. The reference range was not used to interpr et this result as reggie l/abnormal. [facility]2016-09-18 09:54:00 Test Item Value Reference Range Interpretation Comments Bili Total (test code = Bili Total) 0.4 0.2-1.3 [place] 020826-09-18 09:54:00 Test Item Value Reference Range Interpretation Comments AGAP (test code = AGAP) 13.5 10.0-20.0 [place] 020826-09-18 09:54:00 Test Item Value Reference Range Interpretation Comments eGFR (test code = eGFR) 57 [place] 020826-09-18 09:54:00 Test Item Value Reference Range Interpretation Comments CO2 (test code = CO2) 27 24-32 [facility]2016-09-18 09:54:00 Test Item Value Reference Range Interpretation Comments Calcium Lvl (test code = Calcium Lvl) 8.7 8.5-10.5 [facility]2016-09-18 09:54:00 Test Item Value Reference Range Interpretation Comments Chloride Lvl (test code = Chloride Lvl) 100 95-109 [facility]2016-09-18 09:54:00 Test Item Value Reference Range Interpretation Comments Potassium Lvl (test code = Potassium 4.5 3.5-5.1 Lvl) [facility]2016-09-18 09:54:00 Test Item Value Reference Range Interpretation Comments Creatinine Lvl (test code = Creatinine 1.42 0.50-1.40 Lvl) [facility]2016-09-18 09:54:00 Test Item Value Reference Range Interpretation Comments Sodium Lvl (test code = Sodium Lvl) 136 135-145 [facility]2016-09-18 09:54:00 Test Item Value Reference Range Interpretation Comments Glucose Lvl (test code = Glucose Lvl) 105 70-99 [facility]2016-09-18 09:54:00 Test Item Value Reference Range Interpretation Comments BUN (test code = BUN) 17 7-22 [place] [id number] 09:54:00 Test Item Value Reference Range Interpretation Comments Vanco Tr TND (test code = Vanco Tr TND) TBD [place] [id number] 09:54:00 Test Item Value Reference Range Interpretation Comments Vanco Tr (test code = Vanco Tr) 9.3 [facility]2016-09-17 17:04:00 Test Item Value Reference Range Interpretation Comments Phosphorus (test code = Phosphorus) 4.9 2.5-4.5 [facility]2016-09-17 17:04:00 Test Item Value Reference Range Interpretation Comments Magnesium Lvl (test code = Magnesium 1.8 1.8-2.4 Lvl) [facility]MxtwphvLZMKFCRIPG9231-97-53 17:04:00 Test Item Value Reference Range Interpretation Comments Segs (test code = Segs) 70.5 45.0-75.0 [facility]QtufyucGSDFYCFLWI8147-33-75 17:04:00 Test Item Value Reference Range Interpretation Comments Lymphocytes (test code = Lymphocytes) 18.0 20.0-40.0 [facility]RemrotbJMRQNGBSLQ5780-85-44 17:04:00 Test Item Value Reference Range Interpretation Comments Monocytes (test code = Monocytes) 9.7 2.0-12.0 [facility]PrvvxjwGLKNUNRVPV0806-89-00 17:04:00 Test Item Value Reference Range Interpretation Comments Segs-Bands # (test code = Segs-Bands #) 6.4 1.5-8.1 [facility]UuobzwaUSJALUIFUD3367-63-47 17:04:00 Test Item Value Reference Range Interpretation Comments Lymphocytes # (test code = Lymphocytes 1.6 1.0-5.5 #) [facility]OtcpdoaIQUNTMYRQL2670-07-90 17:04:00 Test Item Value Reference Range Interpretation Comments Basophils (test code = 0.5 See_Comment [Aut omated message] The Basophils) system which ge nerated this result tra nsmitted reference range : <=1.0. The reference r lance was not used to int erpret this result as normal/abnormal . [facility]OtaexnnJRIBUBQRUK6054-25-56 17:04:00 Test Item Value Reference Range Interpretation Comments Eosinophils (test code = 1.3 See_Comment [A utomated message] The Eosinophils) system which ge nerated this result tra nsmitted reference range : <=4.0. The reference r lance was not used to int erpret this result as normal/abnormal . [facility]ObkwiasJJUPATKJFC3727-44-03 17:04:00 Test Item Value Reference Range Interpretation Comments Monocytes # (test code 0.9 See_Comment [Aut omated message] The = Monocytes #) system which generated this result tra nsmitted reference range : <=0.8. The reference r lance was not used to int erpret this result as normal/abnormal . [facility]PcuhzbcLABXQDOAIM8412-40-43 17:04:00 Test Item Value Reference Range Interpretation Comments Eosinophils # (test code 0.1 See_Comment [A utomated message] The = Eosinophils #) system whic h generated this result tra nsmitted reference range : <=0.5. The reference r lance was not used to int erpret this result as normal/abnormal . [facility]NdfetcdJDFHEWNCAR1121-91-38 17:04:00 Test Item Value Reference Range Interpretation Comments Platelet (test code = Platelet) 307 133-450 [facility]ShxwyyrZUUHBCTYQV1790-73-04 17:04:00 Test Item Value Reference Range Interpretation Comments MPV (test code = MPV) 6.9 7.4-10.4 [facility]OvrcvghSUPXEPAIGK1946-73-09 17:04:00 Test Item Value Reference Range Interpretation Comments MCHC (test code = MCHC) 33.9 32.0-36.0 [facility]OwodiktZPKVOPUKLX9962-32-71 17:04:00 Test Item Value Reference Range Interpretation Comments RDW (test code = RDW) 15.1 11.5-14.5 [facility]TcwdflrRIATTEUSAD7984-88-57 17:04:00 Test Item Value Reference Range Interpretation Comments RBC (test code = RBC) 2.69 4.70-6.10 [facility]PvgfuepSNZFVFBOXJ3362-58-51 17:04:00 Test Item Value Reference Range Interpretation Comments MCV (test code = MCV) 96.5 80.0-94.0 [facility]CfrenabOYGHVNEHOB1965-88-21 17:04:00 Test Item Value Reference Range Interpretation Comments WBC (test code = WBC) 9.1 3.7-10.4 [facility]YabavgdXQJZCMSVET4118-82-27 17:04:00 Test Item Value Reference Range Interpretation Comments Hgb (test code = Hgb) 8.8 14.0-18.0 [facility]KznmdgwNABZJDCRCU1004-67-97 17:04:00 Test Item Value Reference Range Interpretation Comments Hct (test code = Hct) 26.0 42.0-54.0 [facility]PsfdnzpOORBEOHURI7983-85-97 17:04:00 Test Item Value Reference Range Interpretation Comments MCH (test code = MCH) 32.7 pg 27.0-31.0 [facility]IghqgfeXGDKZQOHQE4328-49-18 08:18:00 Test Item Value Reference Range Interpretation Comments Segs-Bands # (test code = Segs-Bands #) 7.7 1.5-8.1 [facility]FoyosnaAKMKVHLRIE3648-23-24 08:18:00 Test Item Value Reference Range Interpretation Comments Basophils (test code = 1.5 See_Comment [Aut omated message] The Basophils) system which ge nerated this result tra nsmitted reference range : <=1.0. The reference r lance was not used to int erpret this result as normal/abnormal . [facility]HpudhjfBRWMQRDSVD9664-48-95 08:18:00 Test Item Value Reference Range Interpretation Comments Basophils # (test code 0.2 See_Comment [Aut omated message] The = Basophils #) system which generated this result tra nsmitted reference range : <=0.2. The reference r lance was not used to int erpret this result as normal/abnormal . [facility]IbavzuwDPXHMDXHMI8119-69-02 08:18:00 Test Item Value Reference Range Interpretation Comments Eosinophils # (test code 0.2 See_Comment [A utomated message] The = Eosinophils #) system whic h generated this result tra nsmitted reference range : <=0.5. The reference r lance was not used to int erpret this result as normal/abnormal . [facility]TqizhnnUUICXFCHFW3317-97-61 08:18:00 Test Item Value Reference Range Interpretation Comments Monocytes # (test code 1.2 See_Comment [Aut omated message] The = Monocytes #) system which generated this result tra nsmitted reference range : <=0.8. The reference r lance was not used to int erpret this result as normal/abnormal . [facility]RkqxpplGDXTFRZAJT6472-55-60 08:18:00 Test Item Value Reference Range Interpretation Comments Segs (test code = Segs) 69.4 45.0-75.0 [facility]QznbtpmKQKGJZXZZV9067-19-76 08:18:00 Test Item Value Reference Range Interpretation Comments Monocytes (test code = Monocytes) 10.5 2.0-12.0 [facility]WhmguwjHEZDSXLVTJ4607-90-86 08:18:00 Test Item Value Reference Range Interpretation Comments Eosinophils (test code = 1.6 See_Comment [A utomated message] The Eosinophils) system which ge nerated this result tra nsmitted reference range : <=4.0. The reference r lance was not used to int erpret this result as normal/abnormal . [facility]AcnryvwFEVDCXSGCQ1699-38-73 08:18:00 Test Item Value Reference Range Interpretation Comments Lymphocytes # (test code = Lymphocytes 1.9 1.0-5.5 #) [facility]QbxbnxkDCSESZLNUL7686-01-65 08:18:00 Test Item Value Reference Range Interpretation Comments Lymphocytes (test code = Lymphocytes) 17.0 20.0-40.0 [facility]IhagfvqQPCVPXIPCZ9907-42-42 08:18:00 Test Item Value Reference Range Interpretation Comments Hct (test code = Hct) 28.9 42.0-54.0 [facility]GbbzyzpYFCCYNTOSN0190-73-20 08:18:00 Test Item Value Reference Range Interpretation Comments MCHC (test code = MCHC) 33.6 32.0-36.0 [facility]CiqaxwzPWNJVDAIZC1216-81-38 08:18:00 Test Item Value Reference Range Interpretation Comments RDW (test code = RDW) 14.6 11.5-14.5 [facility]SjmhaixSDVUCYRYXV4941-22-00 08:18:00 Test Item Value Reference Range Interpretation Comments MCV (test code = MCV) 96.6 80.0-94.0 [facility]UlqlwcqUOJQNCCOYG4308-37-32 08:18:00 Test Item Value Reference Range Interpretation Comments MCH (test code = MCH) 32.4 pg 27.0-31.0 [facility]YljngfuGWWUEQCZDZ4804-16-71 08:18:00 Test Item Value Reference Range Interpretation Comments Hgb (test code = Hgb) 9.7 14.0-18.0 [facility]QdywwtvKOYICCYZOC5531-00-98 08:18:00 Test Item Value Reference Range Interpretation Comments WBC (test code = WBC) 11.1 3.7-10.4 [facility]JtjkqgdHUMLSNLTQJ9993-08-21 08:18:00 Test Item Value Reference Range Interpretation Comments RBC (test code = RBC) 2.99 4.70-6.10 [facility]JijticmITLZRFWEDL7388-85-19 08:18:00 Test Item Value Reference Range Interpretation Comments Platelet (test code = Platelet) 360 133-450 [facility]YcsrqqbPBUKKJSMWH7099-88-84 08:18:00 Test Item Value Reference Range Interpretation Comments MPV (test code = MPV) 7.4 7.4-10.4 [place] [id number] 09:02:00 Test Item Value Reference Range Interpretation Comments Vanco Tr (test code = Vanco Tr) 10.9 [facility]BS[facility]IU[facility]23[facility]-70 09:02:00 Test Item Value Reference Range Interpretation Comments Vanco Tr TND (test code = Vanco Tr TND) TBD [facility]CpzhgwuWTRWLXRMQA3344-50-90 08:14:00 Test Item Value Reference Range Interpretation Comments Basophils # (test code 0.1 See_Comment [Aut omated message] The = Basophils #) system which generated this result tra nsmitted reference range : <=0.2. The reference r lance was not used to int erpret this result as normal/abnormal . [facility] CampusZpbkfuvYEEOAGYQGB3625-97-27 08:14:00 Test Item Value Reference Range Interpretation Comments Vanco Lvl (test code = Vanco Lvl) 14.1 [facility] 18:46:00 Test Item Value Reference Range Interpretation Comments Sed Rate (test code = no gt See_Comment [Auto mated message] The Sed Rate) system which ge nerated this result transmit meet reference range : <=15. The reference range was not used to interpr et this result as reggie l/abnormal. [facility] [employer] [facility] BKWMWQY0253-74-91 10:38:00 Test Item Value Reference Range Interpretation Comments Antibody Scrn (test Negative (02/08/16 5:38 code = Antibody Scrn) AM) [facility] [employer] [facility] [id number] 10:38:00 Test Item Value Reference Range Interpretation Comments ABO/Rh (test code = ABO/Rh) B POS [facility] [employer] MYGQE0849-88-67 10:38:00 Test Item Value Reference Range Interpretation Comments Procalcitonin Lvl (test 0.11 See_Comment [Au tomated message] code = Procalcitonin Lvl) Th e system which generated this result transmitted ref erence range: <=0.10. The reference range was not used to interpr et this result as normal/abnormal . [facility] [id number] 05:36:00 Test Item Value Reference Range Interpretation Comments UA Sq Epi (test code = UA Sq Epi) None [facility] [id number] 05:36:00 Test Item Value Reference Range Interpretation Comments UA Urobilinogen (test code = UA <=1.0 mg/dL 0.1-1.0 Urobilinogen) [facility] [id number] 05:36:00 Test Item Value Reference Range Interpretation Comments UA Leuk Est (test Negative (02/05/16 12:36 code = UA Leuk Est) AM) [facility] AND [id number] 05:36:00 Test Item Value Reference Range Interpretation Comments UA Bacteria (test code = UA Occasional /HPF Bacteria) [facility] AND [id number] 05:36:00 Test Item Value Reference Range Interpretation Comments UA WBC (test code = 1 See_Comment [Automa meet message] The UA WBC) system which ge nerated this result transmit meet reference range : <=5. The reference range was not used to interpr et this result as reggie l/abnormal. [facility] AND [id number] 05:36:00 Test Item Value Reference Range Interpretation Comments UA Blood (test code = Negative (02/05/16 12:36 UA Blood) AM) [facility] AND [id number] 05:36:00 Test Item Value Reference Range Interpretation Comments UA Bili (test code = Negative *NA*(02/05/16 UA Bili) 12:36 AM) [facility] AND [id number] 05:36:00 Test Item Value Reference Range Interpretation Comments UA Nitrite (test code Negative (02/05/16 12:36 = UA Nitrite) AM) [facility] AND [id number] 05:36:00 Test Item Value Reference Range Interpretation Comments UA Glucose (test code = UA Negative mg/dL Glucose) [facility] AND [id number] 05:36:00 Test Item Value Reference Range Interpretation Comments UA Protein (test code = UA Negative mg/dL Protein) [facility] AND [id number] 05:36:00 Test Item Value Reference Range Interpretation Comments UA Turbidity (test code = Clear (02/05/16 12:36 UA Turbidity) AM) [facility] AND [id number] 05:36:00 Test Item Value Reference Range Interpretation Comments UA pH (test code = UA pH) 6.0 5.0-8.0 [facility] AND [id number] 05:36:00 Test Item Value Reference Range Interpretation Comments UA Color (test code = Light Yellow UA Color) *NA*(02/05/16 12:36 AM) [facility] AND [id number] 05:36:00 Test Item Value Reference Range Interpretation Comments UA Ketones (test code = UA Negative mg/dL Ketones) [facility] AND [id number] 05:36:00 Test Item Value Reference Range Interpretation Comments UA Spec Grav (test code = UA Spec Grav) 1.006 [facility] AND [id number] 21:31:00 Test Item Value Reference Range Interpretation Comments UA Sq Epi (test code = UA Sq Epi) None Seen [facility] AND [id number] 21:31:00 Test Item Value Reference Range Interpretation Comments UA Urobilinogen (test code = UA <=1.0 mg/dL 0.1-1.0 Urobilinogen) [facility] AND [id number] 21:31:00 Test Item Value Reference Range Interpretation Comments UA Blood (test code = Negative (02/01/16 4:31 UA Blood) PM) [facility] AND [id number] 21:31:00 Test Item Value Reference Range Interpretation Comments UA Nitrite (test code Negative (02/01/16 4:31 = UA Nitrite) PM) [facility] AND [id number] 21:31:00 Test Item Value Reference Range Interpretation Comments UA Leuk Est (test Negative (02/01/16 4:31 code = UA Leuk Est) PM) [facility] AND [id number] 21:31:00 Test Item Value Reference Range Interpretation Comments UA WBC (test code = 1 See_Comment [Automa meet message] The UA WBC) system which ge nerated this result transmit meet reference range : <=5. The reference range was not used to interpr et this result as reggie l/abnormal. [facility] AND [id number] 21:31:00 Test Item Value Reference Range Interpretation Comments UA Hyal Cast (test 3 See_Comment [Automat ed message] The code = UA Hyal Cast) system which generated this result transmit meet reference range : <=2. The reference range was not used to interpr et this result as reggie l/abnormal. [facility] AND [id number] 21:31:00 Test Item Value Reference Range Interpretation Comments UA pH (test code = UA pH) 5.5 5.0-8.0 [facility] AND [id number] 21:31:00 Test Item Value Reference Range Interpretation Comments UA Glucose (test code = UA Negative mg/dL Glucose) [facility] AND [id number] 21:31:00 Test Item Value Reference Range Interpretation Comments UA Ketones (test code = UA Negative mg/dL Ketones) [facility] AND [id number] 21:31:00 Test Item Value Reference Range Interpretation Comments UA Bili (test code = Negative *NA*(02/01/16 UA Bili) 4:31 PM) [facility] AND [id number] 21:31:00 Test Item Value Reference Range Interpretation Comments UA Protein (test code = UA Negative mg/dL Protein) [facility] AND [id number] 21:31:00 Test Item Value Reference Range Interpretation Comments UA Color (test code = Yellow *NA*(02/01/16 4:31 UA Color) PM) [facility] AND [id number] 21:31:00 Test Item Value Reference Range Interpretation Comments UA Turbidity (test code = Clear (02/01/16 4:31 UA Turbidity) PM) [facility] AND [id number] 21:31:00 Test Item Value Reference Range Interpretation Comments UA Spec Grav (test code = UA Spec Grav) 1.007 [facility] [id number] 21:31:00 Test Item Value Reference Range Interpretation Comments U Chloride (test code = U Chloride) 41 [facility] [id number] 21:31:00 Test Item Value Reference Range Interpretation Comments U Creatinine (test code = U Creatinine) 70.40 [facility] [id number] 21:31:00 Test Item Value Reference Range Interpretation Comments U Sodium (test code = U Sodium) 38 [facility] [id number] 20:44:00 Test Item Value Reference Range Interpretation Comments Troponin-I (test code no gt See_Comment [Auto mated message] The = Troponin-I) system which g enerated this result transmit meet reference range : <=0.40. The reference r lance was not used to interpr et this result as reggie l/abnormal. [facility]CHE[facility] [id number] 20:44:00 Test Item Value Reference Range Interpretation Comments Procalcitonin Lvl (test 0.13 See_Comment [Au tomated message] code = Procalcitonin Lvl) Th e system which generated this result transmitted ref erence range: <=0.10. The reference range was not used to interpr et this result as normal/abnormal . [place] 020826-09-05 20:44:00 Test Item Value Reference Range Interpretation Comments Lactic Acid Lvl (test code = Lactic 1.7 0.5-2.2 Acid Lvl) [facility]2016-09-05 20:44:00 Test Item Value Reference Range Interpretation Comments Bili Total (test code = Bili Total) 0.4 0.2-1.3 [facility]2016-09-05 20:44:00 Test Item Value Reference Range Interpretation Comments Total Protein (test code = Total 7.7 6.4-8.4 Protein) [facility]2016-09-05 20:44:00 Test Item Value Reference Range Interpretation Comments AST (test code = AST) 19 See_Comment [Auto mated message] The system which ge nerated this result transmit meet reference range : <=37. The reference range was not used to interpr et this result as reggie l/abnormal. [facility]2016-09-05 20:44:00 Test Item Value Reference Range Interpretation Comments ALT (test code = ALT) 23 See_Comment [Auto mated message] The system which ge nerated this result transmit meet reference range : <=65. The reference range was not used to interpr et this result as reggie l/abnormal. [facility]2016-09-05 20:44:00 Test Item Value Reference Range Interpretation Comments Alk Phos (test code = Alk Phos) 58 39-136 [facility]2016-09-05 20:44:00 Test Item Value Reference Range Interpretation Comments Albumin Lvl (test code = Albumin Lvl) 2.8 3.5-5.0 [facility]2016-09-05 20:44:00 Test Item Value Reference Range Interpretation Comments A/G Ratio (test code = A/G Ratio) 0.6 0.7-1.6 [place] 020826-09-05 20:44:00 Test Item Value Reference Range Interpretation Comments Globulin (test code = Globulin) 4.9 2.7-4.2 [facility] [id number] 20:44:00 Test Item Value Reference Range Interpretation Comments B/C Ratio (test code = B/C Ratio) 15 6-25 [facility] C[id number] 20:44:00 Test Item Value Reference Range Interpretation Comments PTT (test code = PTT) 42.4 s 22.9-35.8 [facility]PexjqoqBHWDWZORWT8266-61-81 20:44:00 Test Item Value Reference Range Interpretation Comments PT (test code = PT) 14.6 s 12.0-14.7 [facility] CenterHiwyppzJQECMDSJUZ7685-92-55 20:44:00 Test Item Value Reference Range Interpretation Comments INR (test code = INR) 1.11 0.85-1.17 [facility] CenterEbegxdhBAFOJO8775-91-85 05:00:00 Test Item Value Reference Range Interpretation Comments VLDL (test code = VLDL) 77 [facility] CenterOiqkathWUAROS5783-11-82 05:00:00 Test Item Value Reference Range Interpretation Comments HDL (test code = HDL) 29 [facility] [id number] 05:00:00 Test Item Value Reference Range Interpretation Comments Chol (test code = Chol) 222 [facility] CenterIzzwjakQHSYKN4242-63-11 05:00:00 Test Item Value Reference Range Interpretation Comments CHD Risk (test code = CHD Risk) 7.66 4.00-7.30 [facility] CenterIiklbyxWWIMHT2547-52-22 05:00:00 Test Item Value Reference Range Interpretation Comments Trig (test code = Trig) 384 [facility] CenterZoevxreMMGGGB9780-26-51 05:00:00 Test Item Value Reference Range Interpretation Comments LDL (Calculated) (test code = LDL 116 (Calculated)) [facility] CenterNimbuz IncCARDIAC [id number] 04:23:00 Test Item Value Reference Range Interpretation Comments CK MB Index (test 0.8 See_Comment [Automate d message] The code = CK MB Index) system w [facility] generated this result transmit meet reference range : <=2.5. The reference range was not used to interpr et this result as reggie l/abnormal. [facility] CenterannCARDIAC [id number] 04:23:00 Test Item Value Reference Range Interpretation Comments CK MB (test code = CK MB) 0.6 0.5-3.6 [facility] Assay DepotannCARDIAC [id number] 04:23:00 Test Item Value Reference Range Interpretation Comments Troponin-I (test code no gt See_Comment [Auto mated message] The = Troponin-I) system which g enerated this result transmit meet reference range : <=0.40. The reference r lance was not used to interpr et this result as reggie l/abnormal. [facility] DepotannCARDIAC [id number] 04:23:00 Test Item Value Reference Range Interpretation Comments Total CK (test code = Total CK) 76 191 [facility] Assay DepotannCARDIAC [id number] 00:27:00 Test Item Value Reference Range Interpretation Comments Troponin-I (test code no gt See_Comment [Auto mated message] The = Troponin-I) system which g enerated this result transmit meet reference range : <=0.40. The reference r lance was not used to interpr et this result as reggie l/abnormal. [facility] Assay DepotannCARDIAC [id number] 00:27:00 Test Item Value Reference Range Interpretation Comments Total CK (test code = Total CK) 89 191 [facility] [id number] 00:27:00 Test Item Value Reference Range Interpretation Comments CK MB Index (test 1.0 See_Comment [Automate d message] The code = CK MB Index) system w [employer] generated this result transmit meet reference range : <=2.5. The reference range was not used to interpr et this result as reggie l/abnormal. [facility] Assay DepotannCARDIAC [id number] 00:27:00 Test Item Value Reference Range Interpretation Comments CK MB (test code = CK MB) 0.9 0.5-3.6 [facility] Assay DepotannTHYROID [id number] 00:27:00 Test Item Value Reference Range Interpretation Comments TSH (test code = TSH) 2.000 0.360-3.740 [facility] DepotannCARDIAC [id number] 19:22:00 Test Item Value Reference Range Interpretation Comments CK MB Index (test 0.8 See_Comment [Automate d message] The code = CK MB Index) system w [employer] generated this result transmit meet reference range : <=2.5. The reference range was not used to interpr et this result as reggie l/abnormal. [facility] CenterLabmeeting [id number] 19:22:00 Test Item Value Reference Range Interpretation Comments Troponin-I (test code no gt See_Comment [Auto mated message] The = Troponin-I) system which g enerated this result transmit meet reference range : <=0.40. The reference r lance was not used to interpr et this result as reggie l/abnormal. [facility] CenterLabmeeting [id number] 19:22:00 Test Item Value Reference Range Interpretation Comments Total CK (test code = Total CK) 111 12-191 [facility] CampusBloxy [id number] 19:22:00 Test Item Value Reference Range Interpretation Comments CK MB (test code = CK MB) 0.9 0.5-3.6 [facility] CentereDiets.com [id number] 19:22:00 Test Item Value Reference Range Interpretation Comments eGFR (test code = eGFR) 70 [facility] Centere[facility] [id number] 19:22:00 Test Item Value Reference Range Interpretation Comments Alk Phos (test code = Alk Phos) 87 39-136 [facility] Centere[facility] [id number] 19:22:00 Test Item Value Reference Range Interpretation Comments AST (test code = AST) 23 See_Comment [Auto mated message] The system which ge nerated this result transmit meet reference range : <=37. The reference range was not used to interpr et this result as reggie l/abnormal. [facility] [employer] [id number] 19:22:00 Test Item Value Reference Range Interpretation Comments ALT (test code = ALT) 27 See_Comment [Auto mated message] The system which ge nerated this result transmit meet reference range : <=65. The reference range was not used to interpr et this result as reggie l/abnormal. [facility] [employer] [id number] 19:22:00 Test Item Value Reference Range Interpretation Comments Albumin Lvl (test code = Albumin Lvl) 3.4 3.5-5.0 [facility] Centere[facility] [id number] 19:22:00 Test Item Value Reference Range Interpretation Comments Total Protein (test code = Total 7.7 6.4-8.4 Protein) [facility] Cent[facility] [id number] 19:22:00 Test Item Value Reference Range Interpretation Comments A/G Ratio (test code = A/G Ratio) 0.8 0.7-1.6 [facility]2015-09-21 19:22:00 Test Item Value Reference Range Interpretation Comments Globulin (test code = Globulin) 4.3 2.0-4.0 [facility]2015-09-21 19:22:00 Test Item Value Reference Range Interpretation Comments B/C Ratio (test code = B/C Ratio) 6 6-25 [facility]2015-09-21 19:22:00 Test Item Value Reference Range Interpretation Comments AGAP (test code = AGAP) 11.8 10.0-20.0 [facility]2015-09-21 19:22:00 Test Item Value Reference Range Interpretation Comments Bili Total (test code = Bili Total) 0.4 0.2-1.3 [facility]2015-09-21 19:22:00 Test Item Value Reference Range Interpretation Comments Calcium Lvl (test code = Calcium Lvl) 9.2 8.5-10.5 [facility]2015-09-21 19:22:00 Test Item Value Reference Range Interpretation Comments CO2 (test code = CO2) 25 24-32 [facility]2015-09-21 19:22:00 Test Item Value Reference Range Interpretation Comments Glucose Lvl (test code = Glucose Lvl) 88 70-99 [facility]2015-09-21 19:22:00 Test Item Value Reference Range Interpretation Comments Chloride Lvl (test code = Chloride Lvl) 106 95-109 [facility]2015-09-21 19:22:00 Test Item Value Reference Range Interpretation Comments Potassium Lvl (test code = Potassium 4.8 3.5-5.1 Lvl) [facility]2015-09-21 19:22:00 Test Item Value Reference Range Interpretation Comments Sodium Lvl (test code = Sodium Lvl) 138 135-145 [facility]2015-09-21 19:22:00 Test Item Value Reference Range Interpretation Comments Creatinine Lvl (test code = Creatinine 1.2 0.5-1.4 Lvl) [facility]2015-09-21 19:22:00 Test Item Value Reference Range Interpretation Comments BUN (test code = BUN) 7 7-22 [facility]2015-09-21 19:22:00 Test Item Value Reference Range Interpretation Comments Magnesium Lvl (test code = Magnesium 2.0 1.8-2.4 Lvl) [id number] 19:22:00 Test Item Value Reference Range Interpretation Comments Eosinophils # (test code 0.4 See_Comment [A utomated message] The = Eosinophils #) system whic h generated this result tra nsmitted reference range : <=0.5. The reference r lance was not used to int erpret this result as normal/abnormal . [id number] 19:22:00 Test Item Value Reference Range Interpretation Comments Basophils # (test code 0.0 See_Comment [Aut omated message] The = Basophils #) system which generated this result tra nsmitted reference range : <=0.2. The reference r lance was not used to int erpret this result as normal/abnormal . [facility]TeywaiwEDPXFCNWMD8089-93-00 19:22:00 Test Item Value Reference Range Interpretation Comments Segs-Bands # (test code = Segs-Bands #) 4.6 1.5-8.1 [id number] 19:22:00 Test Item Value Reference Range Interpretation Comments Monocytes # (test code 0.8 See_Comment [Aut omated message] The = Monocytes #) system which generated this result tra nsmitted reference range : <=0.8. The reference r lance was not used to int erpret this result as normal/abnormal . [facility]XucabpfKCNELBWRSR1836-34-34 19:22:00 Test Item Value Reference Range Interpretation Comments Monocytes (test code = Monocytes) 10.3 2.0-12.0 [facility]AsytetcEJTQNILCYC7738-57-91 19:22:00 Test Item Value Reference Range Interpretation Comments Eosinophils (test code = 5.0 See_Comment [A utomated message] The Eosinophils) system which ge nerated this result tra nsmitted reference range : <=4.0. The reference r lance was not used to int erpret this result as normal/abnormal . [id number] 19:22:00 Test Item Value Reference Range Interpretation Comments Basophils (test code = 0.4 See_Comment [Aut omated message] The Basophils) system which ge nerated this result tra nsmitted reference range : <=1.0. The reference r lance was not used to int erpret this result as normal/abnormal . [facility]DgfjsxtRFQBOOJNBC1680-23-22 19:22:00 Test Item Value Reference Range Interpretation Comments Lymphocytes (test code = Lymphocytes) 25.7 20.0-40.0 [facility]HtfgorpKDMHCNKYDT2204-72-17 19:22:00 Test Item Value Reference Range Interpretation Comments Lymphocytes # (test code = Lymphocytes 2.0 1.0-5.5 #) [facility]OskkabrQDSUHMYTVS2126-02-54 19:22:00 Test Item Value Reference Range Interpretation Comments Segs (test code = Segs) 58.6 45.0-75.0 [facility]DqotxsoPIPVJXKLHA6535-05-00 19:22:00 Test Item Value Reference Range Interpretation Comments INR (test code = INR) 1.00 0.85-1.17 [facility]IbikjtxXHKYOSRWSA8319-61-02 19:22:00 Test Item Value Reference Range Interpretation Comments PT (test code = PT) 13.5 s 12.0-14.7 [facility]DqbgytuNGITDBGVSU7006-79-94 19:22:00 Test Item Value Reference Range Interpretation Comments PTT (test code = PTT) 33.7 s 22.9-35.8 [facility]DkzcxzpREHFVIIGPB4025-10-96 19:22:00 Test Item Value Reference Range Interpretation Comments Platelet (test code = Platelet) 170 133-450 [facility]DqdafwwVDXPKYZDRM0123-29-85 19:22:00 Test Item Value Reference Range Interpretation Comments WBC (test code = WBC) 7.8 3.7-10.4 [facility]UjntcupHPPOUAOIBJ1774-43-15 19:22:00 Test Item Value Reference Range Interpretation Comments MCH (test code = MCH) 33.3 pg 27.0-31.0 [facility]SxdhfosNWJNWMOWQQ0752-90-08 19:22:00 Test Item Value Reference Range Interpretation Comments RBC (test code = RBC) 4.62 4.70-6.10 [facility]CgdeiulGPGQQZCSIE1458-56-31 19:22:00 Test Item Value Reference Range Interpretation Comments MCV (test code = MCV) 97.4 80.0-94.0 [facility]LmtudbxXZVXWVREQY5029-26-86 19:22:00 Test Item Value Reference Range Interpretation Comments Hgb (test code = Hgb) 15.4 14.0-18.0 [facility] [id number] 19:22:00 Test Item Value Reference Range Interpretation Comments Hct (test code = Hct) 45.0 42.0-54.0 [facility] [id number] 19:22:00 Test Item Value Reference Range Interpretation Comments MCHC (test code = MCHC) 34.2 32.0-36.0 [facility] UzofpdhYUEBSMMOJB0991-83-31 19:22:00 Test Item Value Reference Range Interpretation Comments MPV (test code = MPV) 7.0 7.4-10.4 [facility] CjkdfguKYFRBVHIZH7383-18-95 19:22:00 Test Item Value Reference Range Interpretation Comments RDW (test code = RDW) 16.0 11.5-14.5 [facility]annDR[facility] [id number] 20:10:00 Test Item Value Reference Range Interpretation Comments U Cocaine Scr (test Negative *NA*(01/23/15 code = U Cocaine Scr) 3:10 PM) [facility]annDR[facility] [id number] 20:10:00 Test Item Value Reference Range Interpretation Comments U Opiate Scr (test Negative *NA*(01/23/15 code = U Opiate Scr) 3:10 PM) [facility] [id number] 20:10:00 Test Item Value Reference Range Interpretation Comments U Cannab Scr (test Negative *NA*(01/23/15 code = U Cannab Scr) 3:10 PM) [facility] [id number] 20:10:00 Test Item Value Reference Range Interpretation Comments U Phencyc Scr (test Negative *NA*(01/23/15 code = U Phencyc Scr) 3:10 PM) [facility] [id number] 20:10:00 Test Item Value Reference Range Interpretation Comments UDS Note (test code = See Note (01/23/15 3:10 UDS Note) PM) [facility] [id number] 20:10:00 Test Item Value Reference Range Interpretation Comments U Shoshana Scr (test code Negative *NA*(01/23/15 = U Shoshana Scr) 3:10 PM) [facility] [id number] 20:10:00 Test Item Value Reference Range Interpretation Comments U Benzodia Scr (test Positive *ABN*(01/23/15 code = U Benzodia Scr) 3:10 PM) [facility] [id number] 20:10:00 Test Item Value Reference Range Interpretation Comments U Amph Scr (test code Negative *NA*(01/23/15 = U Amph Scr) 3:10 PM) [facility] AND [id number] 20:10:00 Test Item Value Reference Range Interpretation Comments UA Urobilinogen (test code = UA <=1.0 mg/dL 0.1-1.0 Urobilinogen) [facility] AND [id number] 20:10:00 Test Item Value Reference Range Interpretation Comments UA Glucose (test code = UA Negative mg/dL Glucose) [facility] AND [id number] 20:10:00 Test Item Value Reference Range Interpretation Comments UA Sq Epi (test code = UA Sq Epi) Few /LPF [facility] AND [id number] 20:10:00 Test Item Value Reference Range Interpretation Comments UA Leuk Est (test Negative (01/23/15 3:10 code = UA Leuk Est) PM) [facility] AND [id number] 20:10:00 Test Item Value Reference Range Interpretation Comments UA Nitrite (test code Negative (01/23/15 3:10 = UA Nitrite) PM) [facility] AND [id number] 20:10:00 Test Item Value Reference Range Interpretation Comments UA Bacteria (test code = UA Occasional /HPF Bacteria) [facility] AND [id number] 20:10:00 Test Item Value Reference Range Interpretation Comments UA RBC (test code = 3 See_Comment [Automa meet message] The UA RBC) system which ge nerated this result transmit meet reference range : <=2. The reference range was not used to interpr et this result as reggie l/abnormal. [facility] AND [id number] 20:10:00 Test Item Value Reference Range Interpretation Comments UA WBC (test code = no gt See_Comment [Automa meet message] The UA WBC) system which ge nerated this result transmit meet reference range : <=5. The reference range was not used to interpr et this result as reggie l/abnormal. [facility] AND [id number] 20:10:00 Test Item Value Reference Range Interpretation Comments UA Hyal Cast (test 5 See_Comment [Automat ed message] The code = UA Hyal Cast) system which generated this result transmit meet reference range : <=2. The reference range was not used to interpr et this result as reggie l/abnormal. [facility] AND [id number] 20:10:00 Test Item Value Reference Range Interpretation Comments UA Amorph Brisa (test code = Occasional /HPF UA Amorph Brisa) [facility] AND [id number] 20:10:00 Test Item Value Reference Range Interpretation Comments UA Mucus (test code = UA Mucus) Few /LPF [facility] AND [id number] 20:10:00 Test Item Value Reference Range Interpretation Comments UA Color (test code = Yellow *NA*(01/23/15 UA Color) 3:10 PM) [facility] AND [id number] 20:10:00 Test Item Value Reference Range Interpretation Comments UA Protein (test code = UA Protein) 200 mg/dL [facility] AND [id number] 20:10:00 Test Item Value Reference Range Interpretation Comments UA pH (test code = UA pH) 6.0 5.0-8.0 [facility] AND [id number] 20:10:00 Test Item Value Reference Range Interpretation Comments UA Spec Grav (test code = UA Spec Grav) 1.017 [facility] AND [id number] 20:10:00 Test Item Value Reference Range Interpretation Comments UA Turbidity (test code Slight *ABN*(01/23/15 = UA Turbidity) 3:10 PM) [facility] AND [id number] 20:10:00 Test Item Value Reference Range Interpretation Comments UA Blood (test code = Moderate *ABN*(01/23/15 UA Blood) 3:10 PM) [facility] AND [id number] 20:10:00 Test Item Value Reference Range Interpretation Comments UA Bili (test code = Negative *NA*(01/23/15 UA Bili) 3:10 PM) [facility] AND [id number] 20:10:00 Test Item Value Reference Range Interpretation Comments UA Ketones (test code = UA Trace mg/dL Ketones) [facility]annURINE AND [id number] 20:10:00 Test Item Value Reference Range Interpretation Comments UA Sperm (test code = UA Occasional /HPF Sperm) [facility] CenterannCARDIAC [id number] 19:55:00 Test Item Value Reference Range Interpretation Comments CK MB Index (test 0.7 See_Comment [Automate d message] The code = CK MB Index) system w [facility] generated this result transmit meet reference range : <=2.5. The reference range was not used to interpr et this result as reggie l/abnormal. [facility] CenterannCARDIAC [id number] 19:55:00 Test Item Value Reference Range Interpretation Comments Troponin-I (test code no gt See_Comment [Auto mated message] The = Troponin-I) system which g enerated this result transmit meet reference range : <=0.40. The reference r lance was not used to interpr et this result as reggie l/abnormal. [facility] CenterNimbuz IncCARServicefulAC [id number] 19:55:00 Test Item Value Reference Range Interpretation Comments Total CK (test code = Total CK) 170 12-191 [facility] CenterannBloxyAC [id number] 19:55:00 Test Item Value Reference Range Interpretation Comments CK MB (test code = CK MB) 1.2 0.5-3.6 [facility] [employer] [id number] 19:55:00 Test Item Value Reference Range Interpretation Comments eGFR (test code = eGFR) 54 [facility] [employer] [id number] 19:55:00 Test Item Value Reference Range Interpretation Comments A/G Ratio (test code = A/G Ratio) 1.0 0.7-1.6 [facility] [employer] [id number] 19:55:00 Test Item Value Reference Range Interpretation Comments AST (test code = AST) 23 See_Comment [Auto mated message] The system which ge nerated this result transmit meet reference range : <=37. The reference range was not used to interpr et this result as reggie l/abnormal. [facility] [employer] [id number] 19:55:00 Test Item Value Reference Range Interpretation Comments Albumin Lvl (test code = Albumin Lvl) 4.3 3.5-5.0 [facility]2015-08-29 19:55:00 Test Item Value Reference Range Interpretation Comments ALT (test code = ALT) 39 See_Comment [Auto mated message] The system which ge nerated this result transmit meet reference range : <=65. The reference range was not used to interpr et this result as reggie l/abnormal. [facility]2015-08-29 19:55:00 Test Item Value Reference Range Interpretation Comments Total Protein (test code = Total 8.8 6.4-8.4 Protein) [facility]2015-08-29 19:55:00 Test Item Value Reference Range Interpretation Comments Calcium Lvl (test code = Calcium Lvl) 9.3 8.5-10.5 [facility]2015-08-29 19:55:00 Test Item Value Reference Range Interpretation Comments AGAP (test code = AGAP) 20.5 10.0-20.0 [facility]2015-08-29 19:55:00 Test Item Value Reference Range Interpretation Comments Globulin (test code = Globulin) 4.5 2.0-4.0 [facility]2015-08-29 19:55:00 Test Item Value Reference Range Interpretation Comments B/C Ratio (test code = B/C Ratio) 10 6-25 [facility]2015-08-29 19:55:00 Test Item Value Reference Range Interpretation Comments Bili Total (test code = Bili Total) 0.5 0.2-1.3 [facility]2015-08-29 19:55:00 Test Item Value Reference Range Interpretation Comments Alk Phos (test code = Alk Phos) 88 39-136 [facility]2015-08-29 19:55:00 Test Item Value Reference Range Interpretation Comments Potassium Lvl (test code = Potassium 4.5 3.5-5.1 Lvl) [facility]2015-08-29 19:55:00 Test Item Value Reference Range Interpretation Comments Sodium Lvl (test code = Sodium Lvl) 139 135-145 [facility]2015-08-29 19:55:00 Test Item Value Reference Range Interpretation Comments CO2 (test code = CO2) 17 24-32 [facility]2015-08-29 19:55:00 Test Item Value Reference Range Interpretation Comments Chloride Lvl (test code = Chloride Lvl) 106 95-109 [facility]2015-08-29 19:55:00 Test Item Value Reference Range Interpretation Comments Glucose Lvl (test code = Glucose Lvl) 114 70-99 [facility]2015-08-29 19:55:00 Test Item Value Reference Range Interpretation Comments Creatinine Lvl (test code = Creatinine 1.5 0.5-1.4 Lvl) [facility]2015-08-29 19:55:00 Test Item Value Reference Range Interpretation Comments BUN (test code = BUN) 15 7-22 [facility]VhvmhalBABZTDLNQV6069-06-03 19:55:00 Test Item Value Reference Range Interpretation Comments Segs (test code = Segs) 89.7 45.0-75.0 [place] [id number] 19:55:00 Test Item Value Reference Range Interpretation Comments Segs-Bands # (test code = Segs-Bands #) 11.6 1.5-8.1 [place] [id number] 19:55:00 Test Item Value Reference Range Interpretation Comments Lymphocytes # (test code = Lymphocytes 0.8 1.0-5.5 #) [id number] 19:55:00 Test Item Value Reference Range Interpretation Comments Lymphocytes (test code = Lymphocytes) 6.5 20.0-40.0 [place] [id number] 19:55:00 Test Item Value Reference Range Interpretation Comments Monocytes (test code = Monocytes) 3.2 2.0-12.0 [place] [id number] 19:55:00 Test Item Value Reference Range Interpretation Comments Monocytes # (test code 0.4 See_Comment [Aut omated message] The = Monocytes #) system which generated this result tra nsmitted reference range : <=0.8. The reference r lance was not used to int erpret this result as normal/abnormal . [facility]GfmfbguIBSTBGRCVJ4038-62-64 19:55:00 Test Item Value Reference Range Interpretation Comments Eosinophils # (test code 0.0 See_Comment [A utomated message] The = Eosinophils #) system whic h generated this result tra nsmitted reference range : <=0.5. The reference r lance was not used to int erpret this result as normal/abnormal . [facility]HyvfbtnMFVRBTJCPF1292-51-07 19:55:00 Test Item Value Reference Range Interpretation Comments Basophils # (test code 0.1 See_Comment [Aut omated message] The = Basophils #) system which generated this result tra nsmitted reference range : <=0.2. The reference r lance was not used to int erpret this result as normal/abnormal . [facility]SqfppfpDZBWQTIVVJ6784-12-90 19:55:00 Test Item Value Reference Range Interpretation Comments Eosinophils (test code = 0.2 See_Comment [A utomated message] The Eosinophils) system which ge nerated this result tra nsmitted reference range : <=4.0. The reference r lance was not used to int erpret this result as normal/abnormal . [facility]IjkpazzTIVSWCYIGZ8097-24-49 19:55:00 Test Item Value Reference Range Interpretation Comments Basophils (test code = 0.4 See_Comment [Aut omated message] The Basophils) system which ge nerated this result tra nsmitted reference range : <=1.0. The reference r lance was not used to int erpret this result as normal/abnormal . [facility]K8290[facility]-18 19:55:00 Test Item Value Reference Range Interpretation Comments PT (test code = PT) 14.2 s 12.0-14.7 [facility]PgrngbaJOGBTJDCIP7007-19-07 19:55:00 Test Item Value Reference Range Interpretation Comments INR (test code = INR) 1.07 0.85-1.17 [facility]WvhwcxxHSESJOQSHC7220-92-29 19:55:00 Test Item Value Reference Range Interpretation Comments PTT (test code = PTT) 31.2 s 22.9-35.8 [facility]YuhsvwuPROHDAPWSV3059-53-31 19:55:00 Test Item Value Reference Range Interpretation Comments MPV (test code = MPV) 8.3 7.4-10.4 [facility]FttikbnNFWPLMMZTG8177-61-02 19:55:00 Test Item Value Reference Range Interpretation Comments MCHC (test code = MCHC) 32.8 32.0-36.0 [facility]AylvvzzJXEUDFMJTH5665-87-75 19:55:00 Test Item Value Reference Range Interpretation Comments RDW (test code = RDW) 17.0 11.5-14.5 [facility] CampusOtwqazeHLWOSRRDYN0793-64-75 19:55:00 Test Item Value Reference Range Interpretation Comments Platelet (test code = Platelet) 202 133-450 [facility]WxkhoquKUNCZSIGIQ8141-82-53 19:55:00 Test Item Value Reference Range Interpretation Comments Hct (test code = Hct) 51.7 42.0-54.0 [facility]NgiyddwMWDXQIHJNS4587-69-51 19:55:00 Test Item Value Reference Range Interpretation Comments MCV (test code = MCV) 97.9 80.0-94.0 [facility]dcVDOPUMUQWD9068[facility]99-48 19:55:00 Test Item Value Reference Range Interpretation Comments MCH (test code = MCH) 32.1 pg 27.0-31.0 [facility]LegngwzKLCBMKJOUM4051-00-35 19:55:00 Test Item Value Reference Range Interpretation Comments Hgb (test code = Hgb) 17.0 14.0-18.0 [facility]WuitajtXIUNJQLZXB8808-77-33 19:55:00 Test Item Value Reference Range Interpretation Comments WBC (test code = WBC) 12.9 3.7-10.4 [facility]OuonhznPAIVANXBOJ8725-65-63 19:55:00 Test Item Value Reference Range Interpretation Comments RBC (test code = RBC) 5.28 4.70-6.10 [facility] CampusTzdoqgzFTWDSUTHAE8468-09-52 19:55:00 Test Item Value Reference Range Interpretation Comments Etoh (%) (test code = Etoh (%)) no gt [facility] CampusNstuwknPFBYOWKPQW3715-91-60 19:55:00 Test Item Value Reference Range Interpretation Comments Ethanol Lvl (test code = Ethanol Lvl) no gt [facility]CHEM BJDRG0139-26-61 17:07:00 Test Item Value Reference Range Interpretation Comments eGFR (test code = eGFR) 71 [facility] [id number] 17:07:00 Test Item Value Reference Range Interpretation Comments Bili Total (test code = Bili Total) 0.3 0.2-1.3 [facility]CHE[facility] JZLBO5855-24-90 17:07:00 Test Item Value Reference Range Interpretation Comments AST (test code = AST) 18 See_Comment [Auto mated message] The system which ge nerated this result transmit meet reference range : <=37. The reference range was not used to interpr et this result as reggie l/abnormal. [facility]2014-06-26 17:07:00 Test Item Value Reference Range Interpretation Comments Alk Phos (test code = Alk Phos) 88 39-136 [facility]2014-06-26 17:07:00 Test Item Value Reference Range Interpretation Comments ALT (test code = ALT) 36 See_Comment [Auto mated message] The system which ge nerated this result transmit meet reference range : <=65. The reference range was not used to interpr et this result as reggie l/abnormal. [facility]2014-06-26 17:07:00 Test Item Value Reference Range Interpretation Comments Albumin Lvl (test code = Albumin Lvl) 4.0 3.5-5.0 [facility]2014-06-26 17:07:00 Test Item Value Reference Range Interpretation Comments Total Protein (test code = Total 8.8 6.4-8.4 Protein) [facility]2014-06-26 17:07:00 Test Item Value Reference Range Interpretation Comments CO2 (test code = CO2) 22 24-32 [facility]2014-06-26 17:07:00 Test Item Value Reference Range Interpretation Comments Calcium Lvl (test code = Calcium Lvl) 9.5 8.5-10.5 [facility]2014-06-26 17:07:00 Test Item Value Reference Range Interpretation Comments Chloride Lvl (test code = Chloride Lvl) 103 95-109 [facility]2014-06-26 17:07:00 Test Item Value Reference Range Interpretation Comments Sodium Lvl (test code = Sodium Lvl) 135 135-145 [facility]2014-06-26 17:07:00 Test Item Value Reference Range Interpretation Comments Potassium Lvl (test code = Potassium 4.2 3.5-5.1 Lvl) [facility]2014-06-26 17:07:00 Test Item Value Reference Range Interpretation Comments Creatinine Lvl (test code = Creatinine 1.2 0.5-1.4 Lvl) [facility]2014-06-26 17:07:00 Test Item Value Reference Range Interpretation Comments Glucose Lvl (test code = Glucose Lvl) 110 70-99 [place] 020824-06-26 17:07:00 Test Item Value Reference Range Interpretation Comments BUN (test code = BUN) 7 7-22 [facility]2014-06-26 17:07:00 Test Item Value Reference Range Interpretation Comments Globulin (test code = Globulin) 4.8 2.0-4.0 [facility]2014-06-26 17:07:00 Test Item Value Reference Range Interpretation Comments A/G Ratio (test code = A/G Ratio) 0.8 0.7-1.6 [facility]2014-06-26 17:07:00 Test Item Value Reference Range Interpretation Comments B/C Ratio (test code = B/C Ratio) 6 6-25 [facility]2014-06-26 17:07:00 Test Item Value Reference Range Interpretation Comments AGAP (test code = AGAP) 14.2 10.0-20.0 [facility]YlqrsogJQIOQDHPLP8783-04-95 17:07:00 Test Item Value Reference Range Interpretation Comments Eosinophils (test code = 3.2 See_Comment [A utomated message] The Eosinophils) system which ge nerated this result tra nsmitted reference range : <=4.0. The reference r lance was not used to int erpret this result as normal/abnormal . [facility]AuaxyaxNXIXYOBSZY3165-44-74 17:07:00 Test Item Value Reference Range Interpretation Comments Lymphocytes (test code = Lymphocytes) 16.7 20.0-40.0 [facility]GrtseglCCCIJOQPXP5101-76-43 17:07:00 Test Item Value Reference Range Interpretation Comments Monocytes (test code = Monocytes) 6.2 2.0-12.0 [facility]ZecyrbuGHLDDYENUK6419-64-84 17:07:00 Test Item Value Reference Range Interpretation Comments Segs (test code = Segs) 73.3 45.0-75.0 [facility]CmiwefkGSOFXHQSRT3663-57-37 17:07:00 Test Item Value Reference Range Interpretation Comments Basophils (test code = 0.6 See_Comment [Aut omated message] The Basophils) system which ge nerated this result tra nsmitted reference range : <=1.0. The reference r lance was not used to int erpret this result as normal/abnormal . [facility]ErrkagqCKRLQBRSRU0687-97-01 17:07:00 Test Item Value Reference Range Interpretation Comments Basophils # (test code 0.1 See_Comment [Aut omated message] The = Basophils #) system which generated this result tra nsmitted reference range : <=0.2. The reference r lance was not used to int erpret this result as normal/abnormal . [facility]SuufqmeOXOADYBMQL0764-26-04 17:07:00 Test Item Value Reference Range Interpretation Comments Eosinophils # (test code 0.3 See_Comment [A utomated message] The = Eosinophils #) system whic h generated this result tra nsmitted reference range : <=0.5. The reference r lance was not used to int erpret this result as normal/abnormal . [facility]JigjfjcYHFKJZAYNB3900-44-96 17:07:00 Test Item Value Reference Range Interpretation Comments Monocytes # (test code 0.6 See_Comment [Aut omated message] The = Monocytes #) system which generated this result tra nsmitted reference range : <=0.8. The reference r lance was not used to int erpret this result as normal/abnormal . [facility]RjizjwqCYTLUVQNBW1550-92-99 17:07:00 Test Item Value Reference Range Interpretation Comments Lymphocytes # (test code = Lymphocytes 1.6 1.0-5.5 #) [facility]VdgkwkoVVZBOWFZRR6877-28-94 17:07:00 Test Item Value Reference Range Interpretation Comments Segs-Bands # (test code = Segs-Bands #) 6.8 1.5-8.1 [facility]OzplefsBTVBNJMXZP7429-61-76 17:07:00 Test Item Value Reference Range Interpretation Comments Platelet (test code = Platelet) 170 133-450 [facility]WlpjmszRDRUTKVGYS1659-48-60 17:07:00 Test Item Value Reference Range Interpretation Comments MPV (test code = MPV) 7.6 7.4-10.4 [facility]KdyfvckYAFJEGTPMJ3778-32-54 17:07:00 Test Item Value Reference Range Interpretation Comments MCHC (test code = MCHC) 33.8 32.0-36.0 [facility]RhihagsTRLFWMYQDU6918-38-76 17:07:00 Test Item Value Reference Range Interpretation Comments RDW (test code = RDW) 14.2 11.5-14.5 [facility]VswuibsPTGDEYASSI9114-71-69 17:07:00 Test Item Value Reference Range Interpretation Comments MCH (test code = MCH) 33.1 pg 27.0-31.0 [facility]LdoshftXUJMFBWQTX7440-06-59 17:07:00 Test Item Value Reference Range Interpretation Comments MCV (test code = MCV) 97.9 80.0-94.0 [facility] HospitalZajbnguRNTBSYHTVU0181-05-83 17:07:00 Test Item Value Reference Range Interpretation Comments Hgb (test code = Hgb) 14.2 14.0-18.0 [facility] HospitalHnafqqqXVPMHJZVQB2974-31-75 17:07:00 Test Item Value Reference Range Interpretation Comments Hct (test code = Hct) 42.1 42.0-54.0 [facility] HospitalBuvymmoCEZYXVCPOT2925-84-63 17:07:00 Test Item Value Reference Range Interpretation Comments WBC (test code = WBC) 9.3 3.7-10.4 [facility] HospitalCpdyjujWFMEWZCIVR2641-53-76 17:07:00 Test Item Value Reference Range Interpretation Comments RBC (test code = RBC) 4.30 4.70-6.10 [facility] CampusNamqfcvEXRCMACDFU3761-72-46 17:07:00 Test Item Value Reference Range Interpretation Comments Vanco Tr TND (test code = Vanco Tr unknown TND) [facility] CampusIdskzijEOVHYTTNHF4999-92-62 17:07:00 Test Item Value Reference Range Interpretation Comments Vanco Tr (test code = Vanco Tr) 7.7 [facility] [id number] 19:25:00 Test Item Value Reference Range Interpretation Comments eGFR (test code = eGFR) 47 [facility]annCHEM JUPLR8015-40-31 19:25:00 Test Item Value Reference Range Interpretation Comments Creatinine Lvl (test code = Creatinine 1.7 0.5-1.4 Lvl) [facility]CHEM FSOMU3225-09-61 19:25:00 Test Item Value Reference Range Interpretation Comments BUN (test code = BUN) 14 7-22 [facility] CenterXmuhrcuOZUJPLXDPWXT7635-06-35 19:25:00 Test Item Value Reference Range Interpretation Comments Potassium Lvl (test code = Potassium 4.3 3.5-5.1 Lvl) [facility] HospitalZcwkshzXHCFFDUZUQ4626-27-42 19:25:00 Test Item Value Reference Range Interpretation Comments Hct (test code = Hct) 36.8 42.0-54.0 [facility]RyaetunWKMBBSYQPN7258-19-17 19:25:00 Test Item Value Reference Range Interpretation Comments MCV (test code = MCV) 97.6 80.0-94.0 [facility]FijjgphRUFGNRHIQO0427-23-78 19:25:00 Test Item Value Reference Range Interpretation Comments MCH (test code = MCH) 33.2 pg 27.0-31.0 [facility]NrgrurwDRLVHCRLDL8625-51-92 19:25:00 Test Item Value Reference Range Interpretation Comments Hgb (test code = Hgb) 12.5 14.0-18.0 [place] 598864-06-23 19:25:00 Test Item Value Reference Range Interpretation Comments WBC (test code = WBC) 7.7 3.7-10.4 [facility]CwihqzwMGVYOIWTUU9341-26-84 19:25:00 Test Item Value Reference Range Interpretation Comments RBC (test code = RBC) 3.77 4.70-6.10 [facility]XtijskiDNRJUHQOKN7569-15-82 19:25:00 Test Item Value Reference Range Interpretation Comments RDW (test code = RDW) 14.0 11.5-14.5 [facility]LittjllPSTROWEQCB0686-12-37 19:25:00 Test Item Value Reference Range Interpretation Comments Platelet (test code = Platelet) 155 133-450 [facility]WnmcsecMENOVEDKUW3454-52-45 19:25:00 Test Item Value Reference Range Interpretation Comments MPV (test code = MPV) 7.7 7.4-10.4 [facility]XxuyhxrBWTLZKXSVD2848-38-37 19:25:00 Test Item Value Reference Range Interpretation Comments MCHC (test code = MCHC) 34.0 32.0-36.0 [facility]PhiubrpMQDWUPDABC1650-68-28 19:25:00 Test Item Value Reference Range Interpretation Comments Segs-Bands # (test code = Segs-Bands #) 5.7 1.5-8.1 [facility]VdxafsrHNZVOTZNHZ0604-04-94 19:25:00 Test Item Value Reference Range Interpretation Comments Eosinophils (test code = 4.3 See_Comment [A utomated message] The Eosinophils) system which ge nerated this result tra nsmitted reference range : <=4.0. The reference r lance was not used to int erpret this result as normal/abnormal . [facility]SxfjmlsTMEZFRUDZG4678-47-12 19:25:00 Test Item Value Reference Range Interpretation Comments Basophils # (test code 0.0 See_Comment [Aut omated message] The = Basophils #) system which generated this result tra nsmitted reference range : <=0.2. The reference r lance was not used to int erpret this result as normal/abnormal . [facility]IgfdidgFAXZWBXCNO6274-47-33 19:25:00 Test Item Value Reference Range Interpretation Comments Basophils (test code = 0.3 See_Comment [Aut omated message] The Basophils) system which ge nerated this result tra nsmitted reference range : <=1.0. The reference r lance was not used to int erpret this result as normal/abnormal . [facility]DtpbwwaWGGGCNVNSO6840-04-86 19:25:00 Test Item Value Reference Range Interpretation Comments Monocytes (test code = Monocytes) 5.1 2.0-12.0 [facility]AidgbqaCMOCJFINWF0708-76-37 19:25:00 Test Item Value Reference Range Interpretation Comments Lymphocytes (test code = Lymphocytes) 16.3 20.0-40.0 [facility]ZoayirfBVNPGCTAQG8429-43-28 19:25:00 Test Item Value Reference Range Interpretation Comments Lymphocytes # (test code = Lymphocytes 1.2 1.0-5.5 #) [facility]KrhqqbhSXABTSMVYM9716-95-39 19:25:00 Test Item Value Reference Range Interpretation Comments Eosinophils # (test code 0.3 See_Comment [A utomated message] The = Eosinophils #) system [facility] generated this result tra nsmitted reference range : <=0.5. The reference r lance was not used to int erpret this result as normal/abnormal . [facility]FkqyyhmPYLVAYAOBG8484-03-03 19:25:00 Test Item Value Reference Range Interpretation Comments Monocytes # (test code 0.4 See_Comment [Aut omated message] The = Monocytes #) system which generated this result tra nsmitted reference range : <=0.8. The reference r lance was not used to int erpret this result as normal/abnormal . [facility]ElhfpgnWZJOWDDEJD4080-65-31 19:25:00 Test Item Value Reference Range Interpretation Comments Segs (test code = Segs) 74.0 45.0-75.0 [facility]LelqgoaXEFOJLSZKE8572-15-04 19:25:00 Test Item Value Reference Range Interpretation Comments Vanco Tr TND (test code = Vanco Tr unknown TND) [facility] CampusSqttgbjSRXOQFCETM6691-31-39 19:25:00 Test Item Value Reference Range Interpretation Comments Vanco Tr (test code = Vanco Tr) 24.4 [facility] CPXZB6620-62-41 18:20:00 Test Item Value Reference Range Interpretation Comments eGFR (test code = eGFR) 54 [facility] MGMSE9422-87-09 18:20:00 Test Item Value Reference Range Interpretation Comments Creatinine Lvl (test code = Creatinine 1.5 0.5-1.4 Lvl) [facility] ULXWB0409-20-88 18:20:00 Test Item Value Reference Range Interpretation Comments BUN (test code = BUN) 11 7-22 [facility] CenterHtqeppqJCJVTFGEFNDN4473-84-94 18:20:00 Test Item Value Reference Range Interpretation Comments Potassium Lvl (test code = Potassium 4.5 3.5-5.1 Lvl) [facility] HospitalDwvylljPBRVXBXMQH5243-49-24 18:20:00 Test Item Value Reference Range Interpretation Comments MCH (test code = MCH) 32.7 pg 27.0-31.0 [facility] HospitalYignruoWKPLBFNWIL1227-94-48 18:20:00 Test Item Value Reference Range Interpretation Comments MCHC (test code = MCHC) 33.6 32.0-36.0 [facility] HospitalKwwmkewUTNKINLCZP9048-61-68 18:20:00 Test Item Value Reference Range Interpretation Comments Platelet (test code = Platelet) 186 133-450 [facility] HospitalVzkvojyBCHSEMKWTU5548-09-71 18:20:00 Test Item Value Reference Range Interpretation Comments RDW (test code = RDW) 14.0 11.5-14.5 [facility] HospitalTefackqHBVWWYJXWU1312-98-60 18:20:00 Test Item Value Reference Range Interpretation Comments MPV (test code = MPV) 7.4 7.4-10.4 [facility]WyuqrhqKZJPLQAFEA1354-54-63 18:20:00 Test Item Value Reference Range Interpretation Comments Hgb (test code = Hgb) 12.2 14.0-18.0 [facility] HospitalXbqsmdtSJGWPZLUXZ2008-99-26 18:20:00 Test Item Value Reference Range Interpretation Comments RBC (test code = RBC) 3.73 4.70-6.10 [place] 598864-06-19 18:20:00 Test Item Value Reference Range Interpretation Comments MCV (test code = MCV) 97.6 80.0-94.0 [facility]EdeixxpXZCRGPMVNB0721-98-23 18:20:00 Test Item Value Reference Range Interpretation Comments Hct (test code = Hct) 36.4 42.0-54.0 [facility]LfcxzmhHNBRQYZJKG1492-54-96 18:20:00 Test Item Value Reference Range Interpretation Comments WBC (test code = WBC) 9.7 3.7-10.4 [place] 598864-06-19 18:20:00 Test Item Value Reference Range Interpretation Comments Basophils # (test code 0.1 See_Comment [Aut omated message] The = Basophils #) system which generated this result tra nsmitted reference range : <=0.2. The reference r lance was not used to int erpret this result as normal/abnormal . [facility]QlrvcuaPRRFTMMENF7555-66-31 18:20:00 Test Item Value Reference Range Interpretation Comments Lymphocytes # (test code = Lymphocytes 2.0 1.0-5.5 #) [facility]YovdwszRKPIUKAIAK7910-88-11 18:20:00 Test Item Value Reference Range Interpretation Comments Monocytes # (test code 0.7 See_Comment [Aut omated message] The = Monocytes #) system which generated this result tra nsmitted reference range : <=0.8. The reference r lance was not used to int erpret this result as normal/abnormal . [facility]YuodupiDTBJCKNZHO1734-01-70 18:20:00 Test Item Value Reference Range Interpretation Comments Eosinophils # (test code 0.4 See_Comment [A utomated message] The = Eosinophils #) system whic h generated this result tra nsmitted reference range : <=0.5. The reference r lance was not used to int erpret this result as normal/abnormal . [facility]VftpbucUOISDXIPNX6788-04-42 18:20:00 Test Item Value Reference Range Interpretation Comments Basophils (test code = 0.6 See_Comment [Aut omated message] The Basophils) system which ge nerated this result tra nsmitted reference range : <=1.0. The reference r lance was not used to int erpret this result as normal/abnormal . [place] [id number] 18:20:00 Test Item Value Reference Range Interpretation Comments Segs-Bands # (test code = Segs-Bands #) 6.6 1.5-8.1 [facility]LpdczkaPYGCAAOATH0042-61-62 18:20:00 Test Item Value Reference Range Interpretation Comments Lymphocytes (test code = Lymphocytes) 20.5 20.0-40.0 [facility]XwotuanPAKLNADEZD1074-08-54 18:20:00 Test Item Value Reference Range Interpretation Comments Monocytes (test code = Monocytes) 7.3 2.0-12.0 [facility]CoausgwAJDTFVOFLS1342-44-98 18:20:00 Test Item Value Reference Range Interpretation Comments Eosinophils (test code = 3.7 See_Comment [A utomated message] The Eosinophils) system which ge nerated this result tra nsmitted reference range : <=4.0. The reference r lance was not used to int erpret this result as normal/abnormal . [facility]VdzctdnAPVXLENVPN9928-14-59 18:20:00 Test Item Value Reference Range Interpretation Comments Segs (test code = Segs) 67.9 45.0-75.0 [place] [id number] 18:20:00 Test Item Value Reference Range Interpretation Comments Shankar Arredondo TND (test code = Shankar Tr TND) NA [place] [id number] 18:20:00 Test Item Value Reference Range Interpretation Comments Shankar Arredondo (test code = [employer] Tr) 24.1 [facility]
[2021-12-27] MEDS ORDERED: NA CHLORIDE 0.9% 100 ML ONE ×2 (11:55→12:30)
[2021-12-27] MEDS ORDERED: LEVETIRACETAM 500 MG/5 ML VIAL IV ONE (11:55)
[2021-12-27 12:12] LABS: Absolute Lymphocytes (CBC) 0.6 K/uL (0.7-4.9); Hematocrit 48.8 % (39.6-49.0); Lymphocytes % 6.4 % (15.3-44.8); MCV 99.7 fL (80-100); MPV 7.3 fL (7.6-11.3); RBC Red Blood Cell Count 4.89 M/uL (4.33-5.43)
[2021-12-27 12:29] LABS: Protime INR 1.03
[2021-12-27] MEDS ORDERED: CEFTRIAXONE 1000 MG/VIAL ONE (12:30)
--- NOTE | 2021-12-27 12:36 | RAD REPORT ---
EXAM DESCRIPTION: CT - Head C Spine Cap Wo Con - 12/27/2021 12:11 pm CLINICAL HISTORY: fall, seizure, head, neck, chest and abdomen pain COMPARISON: Head C Spine Cap Wo Con dated 11/30/2020; Head C Spine Cap Wo Con dated 10/03/2020; Shoulder Left 2 View dated 12/10/2020 TECHNIQUE: Axial [address] head images were obtained. Axial [address] cervical spine images were obtain ed with sagittal and coronal reconstruction images reviewed. Axial 5 mm images of the chest, abdomen and pelvis were obtained without IV contrast. Sagittal and coronal reconstruction of the chest, abdo men and pelvis performed. All CT scans are performed using dose optimization technique as appropriate and may include automated exposure control or mA/KV adjustment according to patient size. FINDINGS: No intracranial hemorrhage, mass or edema. No midline shift is present. There is no cortic al edema or sulcal effacement. Decreased attenuation in the cerebral white matter, more pronounced in the left frontal lobe matches the November 30 examination. Mastoid air cells are clear. No acute paranasa l sinus. Dense for age arterial tree calcifications are present. No skull fracture. Dense calcificat ion near the medial margin of the right mandibular ramus is probably calcification within a salivary gland. This is a stable finding not of acute clinical significance. CT cervical spine shows normal height and alignment. No fracture or acute finding. C5-6 and C6-7 disc space narrowing seen with endplate spurring. Bony foraminal encroachment present at each of these le vels. No suspicious soft tissue finding. Central canal detail is inherently limited. CT chest shows no pneumothorax, pulmonary contusion or pleural fluid collection. No mediastinal hemat catherine and the aorta and pulmonary arteries are unremarkable for non contrast study. No cardiomegaly or pericardial effusion. Patient has advanced for age aortic and Coronary artery calcifications. No ches t will mass or abnormal axillary finding. No displaced rib fracture or other significant bony finding . 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 Acromion degenerative changes are p resent as well. CT abdomen and pelvis show no injury to the solid abdominal viscera. Punctate gallstones layer in the dependent portion the gallbladder. No acute gallbladder finding seen. No biliary tree dilatation. No bowel injury or significant finding. No free air, free fluid or abnormal stranding. No urinary bladd er abnormality. Advanced for age degenerative change present at all lumbar disc levels. There is disc space narrowing with degenerative gas in the disc spaces. Prominent endplate spurring changes are present with multi level bony foraminal encroachment and borderline spinal stenosis. An acute or pathologic bone process is not seen. Patient has very dense for age arterial tree calcification. IMPRESSION: No hemorrhage, cerebral edema or other acute intracranial finding. Intracranial findings , detailed above, are similar to prior imaging. Advanced for age cervical spine degenerative change with no acute finding. No acute traumatic injury to the chest. Patient has prominent aortic and coronary artery calcificatio ns. Chronic left shoulder dislocation again noted. No acute traumatic CT abdomen or pelvis imaging. Advanced for age lumbar degenerative change present. Dense arterial tree calcifications present.
[2021-12-27 12:38] LABS: ALT/SGPT 34 U/L (12-78); AST/SGOT 24 U/L (15-37); Albumin 3.5 g/dL (3.4-5.0); BUN Blood Urea Nitrogen 8 mg/dL (7-18); Bicarbonate 19 mmol/L (21-32); Glomerular Filtration Rate 52 ml/min (=/>90); Glucose Level 130 mg/dL (74-106); Magnesium 2.9 mg/dL (1.8-2.4); Potassium 4.1 mmol/L (3.5-5.1); Sodium Level 138 mmol/L (136-145)
[2021-12-27 12:43] LABS: Bilirubin Direct < 0.1 mg/dL (0-0.2)
[2021-12-27 12:44] LABS: Alkaline Phosphatase 100 U/L (45-117); Bilirubin Total 0.3 mg/dL (0.2-1.0); CKMB Creatine Kinase MB 2.6 ng/mL (1.0-3.6); Creatine Phosphokinase 185 U/L (39-308); NT PRO-BNP 258 pg/mL (<125); Troponin High Sensitivity 16.4 pg/mL (<58.9)
[2021-12-27] MEDS ORDERED: NA CHLORIDE 0.9% 1,000 ML ONE ×2 (12:48→12:59)
[2021-12-27] MEDS ORDERED: LORazepam 2 MG/ML VIAL ONE (12:48)
--- NOTE | 2021-12-27 13:00 | RAD REPORT ---
EXAM DESCRIPTION: RAD - Chest Single View - 12/27/2021 12:54 pm CLINICAL HISTORY: COUGH Chest pain. COMPARISON: Chest Single View dated 10/03/2020; Chest Single View dated 02/29/2020; Chest Single View d ated 09/01/2019; Chest Single View dated 12/27/2018 FINDINGS: Portable technique limits examination quality. Mild bilateral pulmonary opacities are present. This most likely represents a viral infection or mild interstitial edema. The heart is normal in size. No displaced fractures.
[2021-12-27 14:51] LABS: Urine Blood 1+ (Negative); Urine Glucose Negative (Negative); Urine Protein 1+ (Negative)
[2021-12-27 15:10] LABS: Barbiturates NEGATIVE (NEGATIVE); Benzodiazepines NEGATIVE (NEGATIVE); Cocaine NEGATIVE (NEGATIVE); METHAMPHETAM NEGATIVE (NEGATIVE); Methadone NEGATIVE (NEGATIVE); Opiates NEGATIVE (NEGATIVE); Phencyclidine NEGATIVE (NEGATIVE); THC Cannibis NEGATIVE (NEGATIVE)
[2021-12-27 18:08] VITALS: O2SAT 98
--- NOTE | 2021-12-27 19:35 | P.HP ---
Certification for Inpatient Patient admitted to: Observation With expected LOS: <2 Midnights Patient will require the following post-hospital care: None Practitioner: I am a practitioner with admitting privileges, knowledge of patient current condition, hospital course, and medical plan of care. Services: Services provided to patient in accordance with Admission requirements found in Title 42 Section 412.3 of the Code of Federal Regulations Patient History Date of Service: 12/27/21 Reason for admission: Seizure History of Present Illness: Mr. Karlos Leblanc is a 56 year old male who has a past medical history of coronary artery disease, chronic diastolic congestive heart failure, chronic obstructive pulmonary disease, seizure disorder, history of tobacco and alcohol use disorder, and hypertension who presents to the [facility] Emergency Department for a seizure. He reports that, earlier today, he had a seizure. He states that the seizure was witnessed by his roommate, who described as generalized shaking. He is unsure how long it lasted, but reportedly it lasted for several minutes. He states that he has been significantly weak since the seizure. He denies any obvious inciting or alleviating factors; however, he reports that he has been out of his medications which include levetiracetam for at least a week. He denies excessive alcohol use. On review of systems, he denies any fevers, chills, headaches, dizziness, chest pain, palpitations, shortness of breath, wheezing, cough, abdominal pain, nausea/vomiting, diarrhea, constipation, hematochezia, melena, dysuria, hematuria, myalgia, or any other symptoms. He presented to the Emergency Department for further evaluation. Upon presentation, his vital signs were stable. His laboratory studies were notable for a bicarbonate of 19, creatinine of 1.54 (baseline ~1.0), an ethanol less than 10, and a negative urine drug screen. Lactic acid was 6.5 and 2.1, res pectively. Chest x-ray revealed, "mild bilateral pulmonary opacities are present." CT head/cervical spine/chest/abdomen/pelvis revealed, "no hemorrhage, cerebral edema or other acute intracranial finding. Intracranial findings, detailed above, are similar to prior imaging. Advanced for age cervical spine degenerative change with no acute finding. No acute traumatic injury to the chest. Patient has prominent aortic and coronary artery calcifications. Chronic left shoulder dislocation again noted. No acute traumatic CT abdomen or pelvis imaging. Advanced for age lumbar degenerative change present. Dense arterial tree calcifications present." Neurology was consulted in the Emergency Department, and recommendations are pending. He was admitted to the General Internal Medicine service for further evaluation. Allergies No Known Allergies Allergy (Verified 09/02/19 00:22) Home Medications: Alprazolam [Xanax] 1 tab PO BEDTIME 10/04/20 Gabapentin 1 tab PO BID 10/04/20 lisinopriL [Lisinopril] 1 tab PO DAILY 10/04/20 Hydrocodone 7.5/APAP 325 [[place] 7.5/325 mg] 1 tab PO Q6H PRN #30 tab 12/10/20 Levetiracetam [Keppra] 1,000 mg PO BID #60 tablet 12/10/20 - Past Medical/Surgical History Has patient received pneumonia vaccine in the past: No Diabetic: No -: HTN -: CHF, diastolic dysfunction -: COPD -: CAD -: PVD -: Left & right partial foot amputation -: History of osteomyelitis -: History of drug use -: Alcohol abuse -: Tobacco abuse -: GERD -: Rt great toe & 2nd toe amputated-Dec 2015 -: Left partial foot amputation-January 2019 -: right partial foot amputation Psychosocial/ Personal History: Patient currently lives in a trailer - Family History Father -: Cancer Mother -: Cancer - Social History Smoking Status: Current every day smoker Alcohol use: No CD- Drugs: No Caffeine use: No Review of Systems General: Unremarkable Eyes: Unremarkable ENT: Unremarkable Respiratory: Unremarkable Cardiovascular: Unremarkable Gastrointestinal: Unremarkable Genitourinary: Unremarkable Musculoskeletal: Unremarkable Integumentary: Unremarkable Neurological: Seizures Physical Examination - Vital Signs Temperature: 99.4 F Blood Pressure: 131/56 Pulse: 87 Respirations: 21 Pulse Ox (%): 98 (2 L ) - Physical Exam General: Alert, In no apparent distress, Oriented x3 HEENT: Atraumatic, PERRLA, Mucous membr. moist/pink, EOMI, Sclerae nonicteric Neck: Supple, JVD not distended Respiratory: Clear to auscultation bilaterally, Normal air movement Cardiovascular: No edema, Regular rate/rhythm, Normal S1 S2, No gallops, No rubs, No murmurs Gastrointestinal: Normal bowel sounds, Soft and benign, Non-distended, No tenderness, No rebound, No guarding Musculoskeletal: No clubbing, Other (s/p amputation of toes on bilateral feet) Integumentary: No rashes Neurological: Normal gait, Normal strength at 5/5 x4 extr, Sensation intact, Cranial nerves 3-12 intact, Normal affect - Studies Laboratory Data (last 24 hrs) 12/27/21 12:08: PT 11.3, INR 1.03, APTT 33.8 12/27/21 12:00: WBC 9.7, Hgb 17.0, Hct 48.8, Plt Count 160 12/27/21 12:00: Sodium 138, Potassium 4.1, BUN 8, Creatinine 1.54 H, Glucose 130 H, Magnesium 2.9 H D, Total Bilirubin 0.3, AST 24, ALT 34, Alkaline Phosphatase 100 12/27/21 11:44: APTT Cancelled Assessment and Plan - Plan # Acute Seizure in Known Seizure Disorder due to Medication Noncompliance He reports that he has a history of seizure disorder and recently stopped taking his levetiracetam. It would seem most likely that his seizure was secondary to medication noncompliance. Neurology was consulted and spoke with Dr. Escobar recommendations appreciated He recommended starting levetiracetam 1000 mg twice daily for now with plan to transition to 500 mg twice daily tomorrow Plan to obtain EEG in the morning Seizure precautions Every 4 hour neuro checks # KDIGO Stage I Acute Kidney Injury likely secondary to Seizure # Lactic Acidosis likely secondary to Seizure # HAGMA secondary to above - Creatinine = 1.54 (baseline creatinine around 1.0) - Urinalysis = 1+ blood, 1+ protein - Start IV fluids as mentioned below - Monitor creatinine and urine output - If worsening, obtain renal ultrasound - Renally dose medications # Tobacco Use Disorder # History of Alcohol Use Disorder Substance cessation counseling was provided - Started IV banana bag # Coronary Artery Disease # Peripheral Vascular Disease s/p bilateral toe amputations # Chronic Diastolic Congestive Heart Dailure # Hypertension # Gastroesophageal Reflux Disease He does not know his home medications. Will resume once verified. Jessee Vivas M.D. Discharge Plan: Home Plan to discharge in: 24 Hours - Advance Directives Does patient have a Living Will: No Does patient have a Durable POA for Healthcare: No
[2021-12-27] MEDS ORDERED: FOLIC ACID 1 MG, MULTIVITAMINS INJ 10 ML, THIAMINE HCL 100 MG in NA CHLORIDE 0.9% 1,000 ML IV SCH (20:00)
[2021-12-27 22:38] VITALS: BMI 23.3
[2021-12-28] MEDS ORDERED: chlordiazePOXIDE HCl 25 MG CAP PO SCH (01:00)
[2021-12-28 04:13] LABS: Absolute Lymphocytes (CBC) 1.8 K/uL (0.7-4.9); Hematocrit 39.7 % (39.6-49.0); Lymphocytes % 21.3 % (15.3-44.8); MPV 7.4 fL (7.6-11.3); RBC Red Blood Cell Count 3.97 M/uL (4.33-5.43)
[2021-12-28 04:35] LABS: Albumin 2.8 g/dL (3.4-5.0); Bilirubin Total 0.6 mg/dL (0.2-1.0); Magnesium 2.4 mg/dL (1.8-2.4); Phosphorus 2.6 mg/dL (2.5-4.9); Potassium 3.3 mmol/L (3.5-5.1); Protein, Total 6.4 g/dL (6.4-8.2)
[2021-12-28] MEDS ORDERED: levETIRAcetam 1,000 MG in NA CHLORIDE 0.9% 100 ML IV SCH (06:00)
--- NOTE | 2021-12-28 07:21 | EKG ---
Test Date: 2021-12-27 Test Time: 17:51:27 Pilot Safety Inspector: CONNOR MEASUREMENT RESULTS: Intervals: Rate: 82 UT: 142 QRSD: 82 QT: 398 QTc: 464 [place]: P: 63 UT: 142 QRS: 51 T: 61 INTERPRETIVE STATEMENTS: Normal sinus rhythm Normal ECG Compared to ECG 08/10/2021 03:03:51 Myocardial infarct finding no longer present Electronically Signed On 12-28-21 07:19:22 CDT by Bill Clark
--- NOTE | 2021-12-28 08:21 | P.DS ---
Admission Date: 12/27/21 Discharge Date: 12/28/21 Disposition: ROUTINE DISCHARGE Discharge Condition: GOOD Reason for Admission: Seizure Consultations: 1. Neurology Hospital Course: DIAGNOSES: # Acute Seizure in Known Seizure Disorder due to Medication Noncompliance # KDIGO Stage I Acute Kidney Injury likely secondary to Seizure # Lactic Acidosis likely secondary to Seizure # HAGMA secondary to above # Tobacco Use Disorder # History of Alcohol Use Disorder # Coronary Artery Disease # Peripheral Vascular Disease s/p bilateral toe amputations # Chronic Diastolic Congestive Heart Dailure # Hypertension # Gastroesophageal Reflux Disease HOSPITAL COURSE: Mr. Karlos Lbelanc is a 56 year old male who has a past medical history of coronary artery disease, chronic diastolic congestive heart failure, chronic obstructive pulmonary disease, seizure disorder, history of tobacco and alcohol use disorder, and hypertension who was admitted to the [facility] on 12/27/2021 for a seizure. Upon further evaluation, a CT head/cervical spine/chest/abdomen/pelvis revealed, "no hemorrhage, cerebral edema or other acute intracranial finding. Intracranial findings, detailed above, are similar to prior imaging. Advanced for age cervical spine degenerative change with no acute finding. No acute traumatic injury to the chest. Patient has prominent aortic and coronary artery calcifications. Chronic left shoulder dislocation again noted. No acute traumatic CT abdomen or pelvis imaging. Advanced for age lumbar degenerative change present. Dense arterial tree calcifications present." It appears that he had run out of his medications, which include levetiracetam, about 1 week ago and that his seizure was induced by medication noncompliance. Neurology was consulted and this case was reviewed with Dr. Escobar. He recommended starting IV levetiracetam and observing him overnight. During his time in the hospital, there were no recurrent seizures and he was loaded with levetiracetam. He stated that he felt well this morning and would like to be discharged, which is reasonable considering that he had no seizures in the hospital. He was provided a new prescription with levetiracetam and advised to schedule follow-up with neurology within 1 week. On 12/28/2021, he was seen on morning rounds and deemed medically stable for discharge. He was discharged with instructions to schedule follow-up appointments with his PCP in 3-5 days and with Neurology (Dr. Escobar) in 5-7 days. He was provided a prescription for levetiracetam. He was given the opportunity to ask questions and reported no further questions. Furthermore, all questions were answered to the best of my ability. Today, I personally spent 20 minutes on his case, of which greater than 50% of the time was spent in patient education, counseling, and coordination of care as described above. - Physical Exam General: Alert, In no apparent distress, Oriented x3 HEENT: Atraumatic, PERRLA, Mucous membr. moist/pink, EOMI, Sclerae nonicteric Neck: Supple, JVD not distended Respiratory: Clear to auscultation bilaterally, Normal air movement Cardiovascular: No edema, Regular rate/rhythm, Normal S1 S2, No gallops, No rubs, No murmurs Gastrointestinal: Normal bowel sounds, Soft and benign, Non-distended, No tenderness, No rebound, No guarding Musculoskeletal: No clubbing, Other (s/p amputation of toes on bilateral feet) Integumentary: No rashes Neurological: Normal gait, Normal strength at 5/5 x4 extr, Sensation intact, Cranial nerves 3-12 intact, Normal affect Vital Signs/Physical Exam: Temp Pulse Resp BP Pulse Ox 97.6 F 71 18 150/75 H 98 12/28/21 04:00 12/28/21 04:00 12/28/21 04:00 12/28/21 04:00 12/28/21 04:00 Laboratory Data at Discharge: WBC 8.4 K/uL (4.3-10.9) 12/28/21 03:33 Hgb 13.7 g/dL (13.6-17.9) D 12/28/21 03:33 Hct 39.7 % (39.6-49.0) D 12/28/21 03:33 Plt Count 140 K/uL (152-406) L 12/28/21 03:33 PT 11.3 SECONDS (9.5-12.5) 12/27/21 12:08 INR 1.03 12/27/21 12:08 APTT 33.8 SECONDS (24.3-36.9) 12/27/21 12:08 Sodium 139 mmol/L (136-145) 12/28/21 03:33 Potassium 3.3 mmol/L (3.5-5.1) L 12/28/21 03:33 BUN 8 mg/dL (7-18) 12/28/21 03:33 Creatinine 1.06 mg/dL (0.55-1.3) 12/28/21 03:33 Glucose 87 mg/dL (74-106) 12/28/21 03:33 Phosphorus 2.6 mg/dL (2.5-4.9) 12/28/21 03:33 Magnesium 2.4 mg/dL (1.8-2.4) D 12/28/21 03:33 Total Bilirubin 0.6 mg/dL (0.2-1.0) 12/28/21 03:33 AST 19 U/L (15-37) 12/28/21 03:33 ALT 24 U/L (12-78) 12/28/21 03:33 Alkaline Phosphatase 80 U/L (45-117) 12/28/21 03:33 Home Medications: Levetiracetam [Keppra] 1,000 mg PO BID #60 12/28/21 New Medications: Levetiracetam [Keppra] 1,000 mg PO BID #60 Physician Discharge Instructions: 1. Please schedule follow-up with PCP in 3-5 days 2. Please schedule follow-up with Neurology (Dr. Escobar) in 1-2 weeks Please make sure you do not miss any doses of your levetiracetam (Keppra). If you have difficulty picking up your medication, please call us at [phone]. Diet: Regular Activity: Ad leydi Followup: Anibal Escobar MD [ASSOCIATE-ACTIVE - CAN ADMIT] - (Call to schedule appointment.) Time spent managing pt's care (in minutes): 20
--- NOTE | 2021-12-28 10:12 | ER ---
Nurse's Notes [facility] Name: Karlos Leblanc Age: 56 yrs Sex: Male : 1965 Arrival Date: 12/27/2021 Time: 11:18 Bed 6 Private MD: Diagnosis: Essential (primary) hypertension;Epileptic seizures related to external causes, not intractable;Altered mental status, unspecified;Fall on same level, unspecified Presentation: 12/27 11:11 Chief complaint: EMS states: a friend called this morning to say he was seizing and tw2 they were with him last night and he was having small seizures last night. they left this morning and when they came back he was on the floor in the bathroom. busted top and multiple skin tears all over. hypertensive, bgl 162 mg/dL, responds to verbal stimulus. Coronavirus screen: At this time, the client does not indicate any symptoms associated with coronavirus-19. Ebola Screen: Patient denies travel to an Ebola-affected area in the 21 days before illness onset. Initial Sepsis Screen: Does the patient meet any 2 criteria? HR > 90 bpm. No. Patient's initial sepsis screen is negative. Does the patient have a suspected source of infection? No. Patient's initial sepsis screen is negative. Risk Assessment: Do you want to hurt yourself or someone else? Patient reports no desire to harm self or others. Onset of symptoms was December 27, 2021. Care prior to arrival: IV initiated. 20 GA, in the left forearm. 11:11 Method Of Arrival: EMS: [facility] tw2 11:11 Acuity: KENIA 3 tw2 Triage Assessment: 11:11 General: Appears in no apparent distress. unkempt, Behavior is cooperative, drowsy, tw2 quiet. Pain: Denies pain. Neuro: Pérez Agitation-Sedation Scale (RASS): -1 Drowsy Level of Consciousness is obeys commands, Oriented to person. Cardiovascular: Patient's skin is warm and dry. Respiratory: Airway is patent Respiratory effort is even, unlabored, Respiratory pattern is regular. GI: No signs and/or symptoms were reported involving the gastrointestinal system. Derm: multiple skin tears noted to b/l arms and legs, bleeding noted to left forearm skin tear, cleaned and pressure dressing applied. Musculoskeletal: Range of motion: intact in all extremities. Historical: - Allergies: 11:30 NKDA; tw2 - Home Meds: 11:30 lisinopril 10 mg Oral tab 1 tab once daily [Active]; Keppra 100 mg/mL Oral soln tw2 [Active]; Percocet 2.5-325 mg Oral tab [Active]; gabapentin 100 mg Oral cap 2 caps 3 times per day [Active]; - PMHx: 11:30 Hypertension; Seizures; tw2 - PSHx: 11:30 cardiac stents; tw2 - Immunization history:: Adult Immunizations. - Social history:: Smoking status: . - Family history:: not pertinent. Screenin:34 Abuse screen: Denies threats or abuse. Nutritional screening: No deficits noted. tw2 Tuberculosis screening: No symptoms or risk factors identified. Fall Risk Secondary diagnosis (15 points) impaired mobility. Assessment: 11:33 Reassessment: see triage assessment. tw2 12:42 Reassessment: xray at bedside at this time. tw2 12:56 Reassessment: Patient appears in no apparent distress at this time. Patient and/or tw2 family updated on plan of care and expected duration. Pain level reassessed. 14:00 Reassessment: No changes from previously documented assessment. Patient and/or family bp updated on plan of care and expected duration. Pain level reassessed. ADMIT INITIATED. 15:30 Reassessment: Patient appears in no apparent distress at this time. No changes from tw2 previously documented assessment. Patient and/or family updated on plan of care and expected duration. Pain level reassessed. Vital Signs: 11:11 BP 152 / 86; Pulse 101; Resp 20; Temp 99.4(TE); Pulse Ox 91% on R/A; Weight 82.55 kg tw2 (R); Height 6 ft. 1 in. (185.42 cm); 11:30 BP 161 / 80; Pulse 97; Resp 19; Pulse Ox 97% on 2 lpm NC; tw2 12:07 BP 130 / 64; Pulse 94; Resp 24; Pulse Ox 100% on 2 lpm NC; tw2 12:54 BP 130 / 64; Pulse 99; Resp 19; Pulse Ox 99% on 2 lpm NC; tw2 13:30 BP 174 / 77; Pulse 96; Resp 25; Pulse Ox 100% ; bp 14:30 BP 172 / 76; Pulse 91; Resp 20; Pulse Ox 100% ; bp 15:30 BP 166 / 81; Pulse 81; Resp 17; Pulse Ox 98% on 2 lpm NC; tw2 11:11 Body Mass Index 24.01 (82.55 kg, 185.42 cm) tw2 11:11 pt placed on o2 at 2L nc at this time, provider notified. will continue to monitor tw2 Patricia Coma Score: 11:11 Eye Response: to voice(3). Verbal Response: confused(4). Motor Response: obeys tw2 commands(6). Total: 13. ED Course: 11:11 Side rails up X2. Seizure precautions initiated. lunchroom monitor on. Pulse ox on. NIBP tw2 on. Warm blanket given. pt soiled briefs removed, pt cleaned and placed in new brief at this time by myself and CONNOR tech. 11:18 Patient arrived in ED. tw2 11:28 Aaron Pichardo MD is Attending Physician. riya 11:30 Triage completed. tw2 11:32 Arm band placed on. tw2 11:32 Maintain EMS IV. Dressing intact. Good blood return noted. Site clean \T\ dry. Gauge \T\ tw 2 site: 20 g iv left fa. 11:44 Jailene Yi, RN is Primary Nurse. tw2 12:13 CT Traumagram (Head C Spine CAP wo con) In Process Unspecified. EDMS 12:30 Inserted saline lock: 20 gauge in right forearm, using aseptic technique. ,using tw2 aseptic technique. Tech. CONNOR 12:31 IV discontinued, intact, bleeding controlled, No redness/swelling at site. Pressure tw2 dressing applied, to LEFT FA. 12:56 XRAY Chest (1 view) In Process Unspecified. EDMS 14:02 Jessee Vivas MD is Hospitalizing Provider. riya 19:01 Primary Nurse role handed off by Jailene Yi, RN tw2 21:56 No provider procedures requiring assistance completed. ll3 Administered Medications: 11:50 Drug: Rocephin (cefTRIAXone) 1 grams Route: IV; Rate: per protocol; Site: left forearm; tw2 12:49 Follow up: Response: No adverse reaction; IV Status: Completed infusion; IV Intake: tw2 100ml 12:15 Drug: Keppra (levETIRAcetam) 1000 mg Route: IV; Rate: per protocol; Site: right forearm;bp 12:48 Drug: NS 0.9% 1000 ml Route: IV; Rate: 1 bolus; Site: right forearm; tw2 14:45 Follow up: Response: No adverse reaction; IV Status: Completed infusion; IV Intake: tw2 1000ml 12:48 Drug: Ativan (LORazepam) 1 mg Route: IVP; Site: right forearm; tw2 14:42 Follow up: Response: No adverse reaction bp 12:54 Drug: NS 0.9% 1000 ml Route: IV; Rate: 1 bolus; Site: right forearm; tw2 Medication: 14:53 VIS not applicable for this client. tw2 Intake: 12:49 IV: 100ml; Total: 100ml. tw2 14:45 IV: 1000ml; Total: 1100ml. tw2 Outcome: 14:06 Decision to Hospitalize by Provider. riya 21:56 Admitted to Med/surg accompanied by tech, via wheelchair, room 224, with oxygen, with ll3 chart, Report called to Receiving RN 21:56 Condition: stable 21:56 Instructed on the need for admit, Demonstrated understanding of instructions. 21:57 Patient left the ED. ll3 Signatures: Dispatcher [employer] EDAaron De Jesus MD MD cha Wise, Tara, RN RN tw2 Narciso Concepcion, RN RN Amanda Walker, RN RN ll3 Corrections: (The following items were deleted from the chart) 16:11 12:56 Reassessment: Patient appears in no apparent distress at this time. Patient tw2 and/or family updated on plan of care and expected duration. Pain level reassessed. Patient is alert, oriented x 3, equal unlabored respirations, skin warm/dry/pink. tw2 18:59 11:11 Chief complaint: EMS states: a friend called this morning to say he was seizing tw2 and they were with him last night and he was having small seizures last night. the left this morning and when they came back he was on the floor in the bathroom. busted top and multiple skin tears all over. hypertensive, bgl 162 mg/dL, responds to verbal stimulus. tw2
--- NOTE | 2021-12-28 10:12 | EDPHYS ---
Physician Documentation [facility] Name: Karlos Leblanc Age: 56 yrs Sex: Male : 1965 Arrival Date: 12/27/2021 Time: 11:18 Bed 6 Private MD: ED Physician Aaron Pichardo HPI: 12/27 13:52 This 56 yrs old Male presents to ER via EMS with complaints of Seizure. riya 13:52 The patient presents after having a single isolated seizure, that lasted an unknown riya period of time. Character of seizure(s): Loss of consciousness: the patient experienced loss of consciousness, Motor activity: generalized, Incontinence: none, Apnea: it is not know whether or not the patient experienced apnea, Circulation: it is unknown whether or not the patient experienced a disturbance in pulse. Seizure onset: this morning. Context: the seizure(s) was witnessed, by no one, occurred at home. Seizure Hx: Last seizure: The patient's last seizure is unknown. Associated injury: Head/face: Chest: Back:. Current symptoms: confusion. The patient has experienced similar episodes in the past, several times. Historical: - Allergies: 11:30 NKDA; tw2 - Home Meds: 11:30 lisinopril 10 mg Oral tab 1 tab once daily [Active]; Keppra 100 mg/mL Oral soln tw2 [Active]; Percocet 2.5-325 mg Oral tab [Active]; gabapentin 100 mg Oral cap 2 caps 3 times per day [Active]; - PMHx: 11:30 Hypertension; Seizures; tw2 - PSHx: 11:30 cardiac stents; tw2 - Immunization history:: Adult Immunizations. - Social history:: Smoking status: . - Family history:: not pertinent. ROS: 13:52 Constitutional: Negative for fever, chills, and weight loss, Eyes: Negative for injury, riya pain, redness, and discharge, ENT: Negative for injury, pain, and discharge, Neck: Negative for injury, pain, and swelling, Cardiovascular: Negative for chest pain, palpitations, and edema, Respiratory: Negative for shortness of breath, cough, wheezing, and pleuritic chest pain, Abdomen/GI: Negative for abdominal pain, nausea, vomiting, diarrhea, and constipation, Back: Negative for injury and pain, : Negative for injury, bleeding, discharge, and swelling, MS/Extremity: Negative for injury and deformity, Skin: Negative for injury, rash, and discoloration, Psych: Negative for depression, anxiety, suicide ideation, homicidal ideation, and hallucinations, Allergy/Immunology: Negative for hives, rash, and allergies, Endocrine: Negative for neck swelling, polydipsia, polyuria, polyphagia, and marked weight changes, Hematologic/Lymphatic: Negative for swollen nodes, abnormal bleeding, and unusual bruising. 13:52 Neuro: Positive for altered mental status, weakness. Exam: 13:52 Constitutional: This is a well developed, well nourished patient who is awake, alert, riya and in no acute distress. Head/Face: Normocephalic, atraumatic. Eyes: Pupils equal round and reactive to light, extra-ocular motions intact. Lids and lashes normal. Conjunctiva and sclera are non-icteric and not injected. Cornea within normal limits. Periorbital areas with no swelling, redness, or edema. ENT: Nares patent. No nasal discharge, no septal abnormalities noted. Tympanic membranes are normal and external auditory canals are clear. Oropharynx with no redness, swelling, or masses, exudates, or evidence of obstruction, uvula midline. Mucous membranes moist. Neck: Trachea midline, no thyromegaly or masses palpated, and no cervical lymphadenopathy. Supple, full range of motion without nuchal rigidity, or vertebral point tenderness. No Meningismus. Chest/axilla: Normal chest wall appearance and motion. Nontender with no deformity. No lesions are appreciated. Cardiovascular: Regular rate and rhythm with a normal S1 and S2. No gallops, murmurs, or rubs. Normal PMI, no JVD. No pulse deficits. Respiratory: Lungs have equal breath sounds bilaterally, clear to auscultation and percussion. No rales, rhonchi or wheezes noted. No increased work of breathing, no retractions or nasal flaring. Abdomen/GI: Soft, non-tender, with normal bowel sounds. No distension or tympany. No guarding or rebound. No evidence of tenderness throughout. Back: No spinal tenderness. No costovertebral tenderness. Full range of motion. Skin: Warm, dry with normal turgor. Normal color with no rashes, no lesions, and no evidence of cellulitis. MS/ Extremity: Pulses equal, no cyanosis. Neurovascular intact. Full, normal range of motion. Psych: Awake, alert, with orientation to person, place and time. Behavior, mood, and affect are within normal limits. 13:52 Neuro: Orientation: appropriate for stated age, no acute changes, Mentation: slow to respond, Memory: appropriate for stated age, no acute changes, Cranial nerves: is grossly normal based on the patient's age, no acute changes, Cerebellar function: is grossly normal based on the patient's age, no acute changes, Motor: is normal, is grossly normal based on the patient's age, no acute changes, moves all fours, strength is normal, Gait: not tested. seizure activity, is not displayed by the patient. 17:57 ECG was reviewed by the Attending Physician. [facility] Vital Signs: 11:11 BP 152 / 86; Pulse 101; Resp 20; Temp 99.4(TE); Pulse Ox 91% on R/A; Weight 82.55 kg tw2 (R); Height 6 ft. 1 in. (185.42 cm); 11:30 BP 161 / 80; Pulse 97; Resp 19; Pulse Ox 97% on 2 lpm NC; tw2 12:07 BP 130 / 64; Pulse 94; Resp 24; Pulse Ox 100% on 2 lpm NC; tw2 12:54 BP 130 / 64; Pulse 99; Resp 19; Pulse Ox 99% on 2 lpm NC; tw2 13:30 BP 174 / 77; Pulse 96; Resp 25; Pulse Ox 100% ; bp 14:30 BP 172 / 76; Pulse 91; Resp 20; Pulse Ox 100% ; bp 15:30 BP 166 / 81; Pulse 81; Resp 17; Pulse Ox 98% on 2 lpm NC; tw2 11:11 Body Mass Index 24.01 (82.55 kg, 185.42 cm) tw2 11:11 pt placed on o2 at 2L nc at this time, provider notified. will continue to monitor tw2 [place] Coma Score: 11:11 Eye Response: to voice(3). Verbal Response: confused(4). Motor Response: obeys tw2 commands(6). Total: 13. MDM: 11:28 Patient medically screened. ryia 13:56 Differential diagnosis: cerebral vascular accident, drug overdose, cardiac arrhythmia, riya seizure, TIA. Data reviewed: vital signs, nurses notes, lab test result(s), EKG, radiologic studies, CT scan, plain films. Data interpreted: nuclear monitoring technician: rate is 99 beats/min, rhythm is regular, Pulse oximetry: on room air. Test interpretation: by ED physician or midlevel provider: ECG, plain radiologic studies. Counseling: I had a detailed discussion with the patient and/or guardian regarding: the historical points, exam findings, and any diagnostic results supporting the discharge/admit diagnosis, lab results, radiology results. 12/27 11:43 Order name: Basic Metabolic Panel; Complete Time: 13:34 [facility] 12/27 11:43 Order name: CBC with Diff; Complete Time: 12:33 [facility] 12/27 11:43 Order name: LFT's; Complete Time: 13:34 [facility] 12/27 11:43 Order name: Magnesium; Complete Time: 13:34 [facility] 12/27 11:43 Order name: NT PRO-BNP; Complete Time: 13:34 [facility] 12/27 11:43 Order name: PT-INR; Complete Time: 12:33 [facility] 12/27 11:43 Order name: Troponin HS; Complete Time: 13:34 [facility] 12/27 11:44 Order name: Ckmb; Complete Time: 13:34 [facility] 12/27 11:44 Order name: CK; Complete Time: 13:34 [facility] 12/27 11:44 Order name: Lactate; Complete Time: 12:33 [facility] 12/27 11:44 Order name: Blood Culture Adult (2) 12/27 11:44 Order name: SARS-COV-2 RT PCR (Document "Date of Onset" if Symptomatic); Complete Time: [facility] 13:34 12/27 11:44 Order name: Acetaminophen; Complete Time: 12:33 [facility] 12/27 11:44 Order name: ETOH Level; Complete Time: 12:33 [facility] 12/27 11:43 Order name: XRAY Chest (1 view); Complete Time: 13:34 [facility] 12/27 11:43 Order name: EKG; Complete Time: 11:44 [facility] 12/27 11:43 Order name: CT Traumagram (Head C Spine CAP wo con); Complete Time: 13:34 [facility] 12/27 11:44 Order name: Salicylate; Complete Time: 13:34 [facility] 12/27 11:44 Order name: Urine Drug Screen; Complete Time: 17:15 [facility] 12/27 12:30 Order name: PTT, Activated Partial Thromb; Complete Time: 12:33 [facility] 12/27 14:51 Order name: Urine Dipstick-Ancillary; Complete Time: 17:15 [facility] 12/27 15:12 Order name: Lactate Sepsis 2 HR Follow-up; Complete Time: 17:15 [facility] 12/27 20:41 Order name: Creatine Phosphokinase [facility] 12/27 11:43 Order name: Cardiac monitoring; Complete Time: 11:45 [facility] 12/27 11:43 Order name: EKG - Nurse/Tech; Complete Time: 12:50 [facility] 12/27 11:43 Order name: IV Saline Lock; Complete Time: 12:50 [facility] 12/27 11:43 Order name: Labs collected and sent; Complete Time: 12:50 [facility] 12/27 11:43 Order name: O2 Per Protocol; Complete Time: 11:45 [facility] 12/27 11:43 Order name: O2 Sat Monitoring; Complete Time: 11:45 [facility] 12/27 11:44 Order name: Urine Dipstick-Ancillary (obtain specimen); Complete Time: 14:52 [facility] 12/27 11:45 Order name: Seizure Precautions; Complete Time: 11:46 [facility] 12/27 14:02 Order name: Vital Signs; Complete Time: 14:43 [facility] EC:57 Rate is 82 beats/min. Rhythm is regular. QRS [place] is Normal. CT interval is normal. QRS riya interval is normal. QT interval is normal. No Q waves. T waves are Normal. No ST changes noted. Clinical impression: Normal ECG and No evidence of ischemia. Interpreted by me. Reviewed by me. Administered Medications: 11:50 Drug: Rocephin (cefTRIAXone) 1 grams Route: IV; Rate: per protocol; Site: left forearm; tw2 12:49 Follow up: Response: No adverse reaction; IV Status: Completed infusion; IV Intake: tw2 100ml 12:15 Drug: Keppra (levETIRAcetam) 1000 mg Route: IV; Rate: per protocol; Site: right forearm;bp 12:48 Drug: NS 0.9% 1000 ml Route: IV; Rate: 1 bolus; Site: right forearm; tw2 14:45 Follow up: Response: No adverse reaction; IV Status: Completed infusion; IV Intake: tw2 1000ml 12:48 Drug: Ativan (LORazepam) 1 mg Route: IVP; Site: right forearm; tw2 14:42 Follow up: Response: No adverse reaction bp 12:54 Drug: NS 0.9% 1000 ml Route: IV; Rate: 1 bolus; Site: right forearm; tw2 Disposition Summary: 12/27/21 14:06 Hospitalization Ordered Hospitalization Status: Inpatient Admission riya Provider: Jessee Vivas cha Condition: Fair riya Problem: new riya Symptoms: have improved riya Bed/Room Type: Standard riya Location: Telemetry/MedSurg (Inpatient)(12/27/21 20:10) Room Assignment: 224(12/27/21 20:10) mw Diagnosis - Essential (primary) hypertension riya - Epileptic seizures related to external causes, not intractable riya - Altered mental status, unspecified riya - Fall on same level, unspecified riya Forms: - Medication Reconciliation Form riya - SBAR form riya Signatures: Dispatcher [employer] EDMS Josiane Douglas Martha, RN RN Aaron Pichardo MD MD cha Wise, Tara RN RN tw2 Narciso Concepcion RN RN bp Corrections: (The following items were deleted from the chart) 12:34 11:47 PTT, ACTIVATED+COAG.LAB.BRZ ordered. EDMS EDMS 16:21 14:06 Telemetry/MedSurg (Inpatient) riya bd 16:21 14:06 riya bd 16:31 16:21 [facility] ER HOLD bd bd 16:31 16:21 ERHOLD- bd bd 17:15 12:51 SARS-COV-2 Antigen Rapid+I.LAB.BRZ ordered. EDMS EDMS 17:59 16:31 Telemetry/MedSurg (Inpatient) bd bd 17:59 16:31 bd bd 20:10 17:59 [facility] ER HOLD bd mw 20:10 17:59 ERHOLD- bd mw
[2021-12-28 12:04] VITALS: BP 138/59; TEMP 97.5
[2021-12-28] MEDS ORDERED: ENOXAPARIN 40 MG/0.4 ML SQ SCH (21:00)
== END 2021-12-28 12:56 | disposition home or self-care (01) ==
LOC: ER 11:14 → ERHOLD 17:28 → 2ND 20:17
PROVIDERS: ADMIT Internal Medicine; ATTEND Internal Medicine
DX: G40.909 Epilepsy, unspecified, not intractable, without status epilepticus (principal); Z91.14 Patient's other noncompliance with medication regimen; N17.8 Other acute kidney failure; E87.2 Acidosis; I11.0 Hypertensive heart disease with heart failure; I50.32 Chronic diastolic (congestive) heart failure; I25.10 Atherosclerotic heart disease of native coronary artery without angina pectoris; I73.9 Peripheral vascular disease, unspecified; J44.9 Chronic obstructive pulmonary disease, unspecified; K21.9 Gastro-esophageal reflux disease without esophagitis; F17.210 Nicotine dependence, cigarettes, uncomplicated; Z72.89 Other problems related to lifestyle; Z79.899 Other long term (current) drug therapy; Z89.422 Acquired absence of other left toe(s); Z89.421 Acquired absence of other right toe(s); Z20.822 Contact with and (suspected) exposure to COVID-19; Z80.9 Family history of malignant neoplasm, unspecified
CPT/HCPCS: 96365; 96361; 95816; 93005; 87040 ×2; 85025 ×2; 80048; 36415; 80320; 83735 ×2; 82550 ×2; 80329 ×2; 84100; 85610; 80076; 83605 ×2; 85730; 81003; 84484; 82553; 80053; 83880; 80307; 70450; 71250; 72125; 71045; 96375; 99285; U0003; J1953 ×2; J7030 ×2; G0378

== ENCOUNTER 2022-01-27 12:10 | Emergency (ER) | payer OTHER ==
--- OUTSIDE RECORDS SUMMARY | 2022-01-27 12:26 | XMS REPORT | Continuity of Care Document ---
:1965 Author Organization [facility] t Address [address] [place] [address] Care Team Providers Name Role Phone PCP, PATIENT DOES NOT HAVE A Primary Care Physician UnavailMAJO Mc Attending Clinician Unavailable Majo Antunez NP Attending Clinician Doctor Unassigned, Harrold Attending Clinician Unavailable JOSE SAVAGE Attending Clinician Unavailable CLARISSA SHEEHAN Attending Clinician Unavailable VICTOR M SEGURA Attending Clinician Unavailable Chuy Pierce Attending Clinician Blanche Diaz Attending Clinician Unavailable Juan Torres Attending Clinician Az Warner Attending Clinician Tim Fry Attending Clinician Nabeel Gleason Attending Clinician MAJO ANTUNEZ Admitting Clinician Unavailable CLARISSA SHEEHAN Admitting Clinician Unavailable VICTOR M SEGURA Admitting Clinician Unavailable Chuy Pierce Admitting Clinician Juan Torres Admitting Clinician Payers Payer Name Policy Type Policy Number Effective Date Expiration Date Williams goins AEGENNY MEDICARE HMO [id number] 2016 POS 00:00:00 [employer] MEDICARE OUT [id number] 2020 OF NETWORK 00:00:00 Problems Condition Condition Condition Status Onset Resolution Last Treating Co mments Source Name Details Category Date Date Treatment Clinician Date Osteomyeli Osteomyeli Disease Active U nivers tis tis 7-13 ity of 00:00: [address] Branch Cellulitis Cellulitis Disease Active U nivers of left of left 7-12 ity of foot foot 00:00: [address] Branch Se[facility] Center Metabolic Metabolic Disease Active 2016-[address] [facility] acidosis acidosis -24 [facility] 00 [place] Hypertensi Hypertensi Disease Active 2016-[address] on, on, 1 [facility] essential essential 00:00: [facility] 00 Center Leukocytos Leukocytos Disease Active 2016-[address] is is 06-17 [facility] 00 Center Tongue Tongue Disease Active 2016-[address] [facility] laceration laceration -21 Evelyn kes 00:00: Medical 00 Center H/O ETOH H/O ETOH Disease Active 2016[facility] Center Acute Acute Disease Active 2016-[address] [facility] kidney kidney 06-17 [facility] injury injury 00:00: Medical 00 Center Status Status Disease Active 2016-[address] [facility] epilepticu epilepticu 1-20 Evelyn kes s s 00:00: Medical 00 Center ANEMIA ANEMIA Diagnosis Active 2015-052016-04-05 Me moria Active 06-04 09:38:00 l 04/04/2016 00:00: Raudel black [facility] [place] OTHER OTHER Diagnosis Active 2015-052016-03-13 Mem oria Active 19:39:00 l 03/13/2016 00:00: Raudel black [facility] [place] FOOT FOOT Diagnosis Active 2016-02-12 Mem oria GANGRENE GANGRENE 01-30 20:08:00 l Active 00:00: Kai 01/31/2016 00 [place] LEFT FOOT LEFT FOOT Diagnosis Active 2016-01-31 Memoria SORES SORES 01-30 22:38:00 l Active 00:00: [place] 01/31/2016 00 [facility] CP CP Active Diagnosis Active 2015-02-15 Memoria 02/15/201502-15 16:10:00 l MH The 00:00: [facility] 00 CHEST PAIN CHEST Diagnosis Active 2015-02-15 Memoria PAIN 02-15 18:21:00 l Active 00:00: [place] 02/15/2015 00 [facility] LEFT WRIST LEFT Diagnosis Active 2015-02-09 Memoria PAIN WRIST PAIN 02-09 16:02:00 l Active 00:00: [place] 02/09/2015 00 [facility] AMS AMS Diagnosis Active 2015-01-23 Mem oria Active 01-23 15:36:00 l 01/23/2015 00:00: Raudel black The [facility] [place] WOUND WOUND Diagnosis Active 2014-02-12 Mem oria INFECTION INFECTION 10-20 13:06:00 l V V 00:00: [place] NECFAS;CHR NECFAS;CHR 00 ONIC ONIC OSTEOMY OSTEOMY Active 10/20/2013 [facility] Acute Acute Problem Active 2016-04-08 Ed bandar osteomyeli osteomyeli 03:42:03 l tis tis Kai (disorder) (disorder) Active Problem 04/08/2016 [facility] Congestive Congestiv Problem Active 2016-04-08 Memoria heart e heart 03:42:03 l failure failure Kai (disorder) (disorder) Active Problem 04/08/2016 [facility] Hypertensi Hypertens Problem Active 2016-04-08 Memoria ve vahid 03:42:03 l disorder, disorder, Herm delisa systemic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 arterial (disorder) (disorder) Active Problem 04/08/2016 [facility] Bronchitis Bronchiti Problem Active 2016-04-08 Memoria (disorder) s 03:42:03 l (disorder) Raudel n Active Problem 04/08/2016 [facility] Chronic Chronic Problem Active 2016-04-08 Me moria obstructiv obstructiv 03:42:03 l e lung e lung [place] disease disease (disorder) (disorder) Active Problem 04/08/2016 [facility] History of History Problem Active 2016-04-08 Memoria - of - 03:42:03 l infectious infectious He rmann disease disease (context-d (context-d ependent ependent category) category) Active Problem 04/08/2016 [facility] History of History Problem Active 2016-04-08 Memoria amputation of 03:42:03 l of lesser amputation Her cook toe of lesser (situation toe ) (situation ) Active Problem 04/08/2016 [facility] History of History Problem Active 2016-04-08 Memoria - of - 03:42:03 l cardiovasc cardiovasc He liz ular ular disease disease (context-d (context-d ependent ependent category) category) Active Problem 04/08/2016 [facility] Benign Benign Problem Active 2016-04-08 Ed bandar prostatic prostatic 03:42:03 l hyperplasi hyperplasi He liz a a (disorder) (disorder) Active Problem 04/08/2016 [facility] Epistaxis Problem Active 2016-04-08 Me moria (disorder) Epistaxis 03:42:03 l (disorder) Raudel black Active Problem 04/08/2016 [facility] CELLULITIS CELLULITI Diagnosis Active 2014-02-12 Memoria OF FOOT S OF FOOT 13:06:00 l Active Raudel black [place] AC AC Diagnosis Active 2014-02-12 Mem oria OSTEOMYELI OSTEOMYELI 13:06:00 l TIS-UNSPEC TIS-UNSPEC He rmann Active [facility] CHEST PAIN CHEST Diagnosis Active 2015-02-15 Memoria NOS PAIN NOS 18:21:00 l Active Kai [place] GANGRENE, GANGRENE, Diagnosis Active 2016-02-12 Memoria NOT NOT 20:08:00 l ELSEWHERE ELSEWHERE Herm delisa CLASSIFIED CLASSIFIED Active [facility] ANEMIA, ANEMIA, Diagnosis Active 2016-04-05 Memoria UNSPECIFIE UNSPECIFIE 09:38:00 l D D Active Kai [facility] History of Past Illness Condition Condition Condition Status Onset Resolution Last Treating Co mments Source Name Details Category Date Date Treatment Clinician Date Discharge Discharge Problem 2015-052016-03-17 2016-03-17 Memoria Diagnosis: Diagnosis: 0-18 03:02:37 03:02:37 l Acute on Acute on 05:00: Raudel black chronic chronic 00 renal renal failure failure 03/14/2016 03/17/2016 [facility] Discharge Discharge Problem 2015-052016-03-17 2016-03-17 Memgeneral acute hospital Diagnosis: Diagnosis: 0- 03:02:37 03:02:37 l Anemia Anemia 05:00: [place] 03/14/2016 00 03/17/2016 [facility] Discharge Discharge Problem 2015-052016-03-17 2016-03-17 Memoria Diagnosis: Diagnosis: 0- 03:02:37 03:02:37 l Post-opera Post-opera 05:00: He rmdelisa tive pain tive pain 00 03/14/2016 03/17/2016 [facility] Discharge Discharge Problem 2015-052016-03-17 2016-03-17 Memoria Diagnosis: Diagnosis: 0- 03:02:37 03:02:37 l Acute Acute 05:00: [place] hypokalemi hypokalemi 00 a a 03/14/2016 03/17/2016 [facility] Discharge Problem 2015-02-19 2015-02-19 Memoria Diagnosis: Discharge 02-16 07:51:51 07:51:51 l Hyperlipid Diagnosis: 14:36: He rmann emia Hyperlipid 09 emia 02/16/2015 02/19/2015 [facility] Discharge Discharge Problem 2015-02-19 2015-02-19 Memoria Diagnosis: Diagnosis: 02-16 07:51:51 07:51:51 l Hypertensi Hypertensi 14:36: He rmann on on 00 02/16/2015 02/19/2015 [facility] Discharge Discharge Problem 2015-02-19 2015-02-19 Memoria Diagnosis: Diagnosis: 02-16 07:51:51 07:51:51 l Angina Angina 14:35: Kai pectoris pectoris 54 02/16/2015 02/19/2015 [facility] Discharge Discharge Problem 2015-02-12 2015-02-12 Memoria Diagnosis: Diagnosis: 02-09 09:59:31 09:59:31 l Wrist Wrist 05:00: Kai sprain sprain 00 02/09/2015 02/12/2015 [facility] Discharge Discharge Problem 2015-01-26 2015-01-26 Memoria Diagnosis: Diagnosis: 01-23 02:07:27 02:07:27 l 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 delisa seizure, seizure, 00 generalize generalize d d 01/23/2015 5 [facility] Discharge Discharge Problem 2014-2015-01-26 2015-01-26 Priscila Diagnosis: Diagnosis: 01-23 02:07:27 02:07:27 l Cerebral Cerebral 05:00: Raudel n seizure seizure 00 01/23/2015 01/26/2015 [facility] Allergies, Adverse Reactions, Alerts Allergy Allergy Status Severity Reaction(s) Onset Inactive Treating Comm ents Source Name Type Date Date Clinician No Known DA Active U 2018-05 [facility] Allergie 0-10 [place] [facility] 00:00: Health 00 are [facility] Morphine Propensi Active Other (See 2016-[address] ty to Comments) 06-16 [facility] adverse 00:00: Medical reaction [address] [place] [address] s MORPHINE Allergy Active Other 2016-05 SLE 06-16 00:00: 00 morphine morphine Active Thomas Quinn NO KNOWN Drug Active [facility] ALLERGIE Class ity of [facility] Social History Social Habit Start Date Stop Date Quantity Comments Source Exposure to Not sure [facility] SARS-CoV-2 (event) [facility] Cigarettes smoked 2017-04-16 2017-04-[address] [facility] current (pack per 00:00:00 00:00:00 Medical Center day) - Reported Tobacco use and 2017-04-16 2017-04-[address] [facility] exposure 00:00:00 00:00:00 [facility] Social History 2013-10-21 2013-10-21 [facility] 05:36:39 05:36:39 Sex [birth year] [facility] 00:00:00 00:00:00 [facility] Smoking Status Start Date Stop Date Source Unknown if ever smoked [facility] Current every day smoker 2017-04-16 00:00:00 [facility] Medications Ordered Filled Start Stop Current Ordering Indication Dosage Frequency Signature Comments Components Source Medication Medication Date Date Medication? Clinician (SIG) Name Name ketorolac 2020-05- No 30mg 30 mg, Unive rs (TORADOL) 06-04- Slow IV ity of injection 05:00: 04:08 Push, [place] 30 mg 00 :00 ONCE, 1 Medical dose, On Branch 04/03/21 at 2300, Routine
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 amLODIPine 2018- Yes [id number] 10mg Take 1 Univers 10 mg 7-18 [id number] tablet by ity of tablet 00:00: mouth [place] 00 daily. Medical Branch aspirin 81 Yes [id number] 81mg Take 1 Univers mg chewable 7-18 [id number] tablet by i ty of tablet 00:00: mouth [place] 00 daily. Medical Branch amLODIPine Yes [id number] 10mg Take 1 Univers 10 mg 7-18 [id number] tablet by ity of tablet 00:00: mouth [place] 00 daily. Medical Branch aspirin 81 Yes [id number] 81mg Take 1 Univers mg chewable 7-18 [id number] tablet by i ty of tablet 00:00: mouth [place] 00 daily. Medical Branch levETIRAcet 2018- Yes [id number] 1000mg Take 1 Univers am 1,000 mg 7-17 [id number] tablet by i ty of tablet 00:00: mouth 2 [place] 00 (two) Medical times Branch daily. metroNIDAZO 2018- Yes [id number] 500mg Take 1 Univers LE 500 mg 7-17 [id number] tablet by ity of tablet 00:00: mouth 2 [place] 00 (two) Medical times Branch daily. sulfamethox 2018- Yes [id number] 1{tbl} Take 1 Univers azole-trime 7-17 [id number] tablet by i ty of thoprim 00:00: mouth 2 [place] 800-160 mg 00 (two) Medical per tablet times Branch daily. atorvastati 2018- Yes [id number] 40mg Take 1 Univers n 40 mg 7-17 [id number] tablet by ity o f tablet 00:00: mouth at [place] 00 bedtime. Medical Branch HYDROcodone 2019- Yes [id number] 1{tbl} Take 1 Univers -acetaminop 7-17 [id number] tablet by i ty of hen 10-325 00:00: mouth [place] mg tablet 00 every 6 Medical (six) Branch hours as needed for Pain (scale 4-6). levETIRAcet 2018- Yes [id number] 1000mg Take 1 Univers am 1,000 mg 7-17 [id number] tablet by i ty of tablet 00:00: mouth 2 [place] 00 (two) Medical times Branch daily. metroNIDAZO 2019- Yes [id number] 500mg Take 1 Univers LE 500 mg 7-17 [id number] tablet by ity of tablet 00:00: mouth 2 [place] 00 (two) Medical times Branch daily. sulfamethox 2019- Yes [id number] 1{tbl} Take 1 Univers azole-trime 7-17 [id number] tablet by i ty of thoprim 00:00: mouth 2 [place] 800-160 mg 00 (two) Medical per tablet times Branch daily. atorvastati Yes [id number] 40mg Take 1 Univers n 40 mg 7-17 [id number] tablet by ity o f tablet 00:00: mouth at [place] 00 bedtime. Medical Branch HYDROcodone Yes [id number] 1{tbl} Take 1 Univers -acetaminop 7-17 [id number] tablet by i ty of hen 10-325 [...] needed ORAL) (For headache and pain relief). lovastatin 2019-0 Yes 20mg QD Take 20 mg C [...] puff by [facility] mcg/actuati 00:00: mouth via M edical on inhaler 00 inhaler 3 Cent er (three) times daily as needed for Shortness of Breath. lisinopril Yes 10mg QD Take [address] (PRINIVIL,Z 4-01 by mouth Luke s ESTRIL) 10 00:00: daily. Medic al MG tablet 00 [place] amLODIPine Yes 10mg QD Take [address] (NORVASC) 4-01 by mouth [facility] 10 MG 00:00: daily. Medical tablet 00 [place] VENTOLIN Yes 1{puff} Inhale [address] HFA 90 4-01 puff by [facility] mcg/actuati 00:00: mouth via M edical on inhaler 00 inhaler 3 Cent er (three) times daily as needed for Shortness of Breath. lisinopril Yes 10mg QD Take [address] (PRINIVIL,Z 4-01 by mouth Luke s ESTRIL) 10 00:00: daily. Medic al MG tablet 00 [place] amLODIPine Yes 10mg QD Take [address] (NORVASC) 4-01 by mouth [facility] 10 MG 00:00: daily. Medical tablet 00 [place] Sodium 2015-05 Yes IVPB, 150 Memori a Chloride 1-09 ml/hr, l 0.9% IV 14:00: PRN, Start date: 04/05/16 8:00:00 DANCE INSTRUCTOR, Duration: 30, 1,000 ml Sodium 2015-05 Yes IVPB, 150 Memori a Chloride 1-09 ml/hr, l 0.9% IV 14:00: PRN, Start date: 04/05/16 8:00:00 DANCE INSTRUCTOR, Duration: 30, 1,000 ml EPINEPHrine 2015-05 Yes Notes: Memoria 06-05 MEDICATION l 13:22: WASTE Product Size: 1 mg Product Wasted: ___ mg Solu-CORTEF 2015-05 Yes Notes: Ed bandar 1-09 (Same as: l 13:22: Solu-JOHN [place] 00 F) Benadryl 2015-05 Yes Notes: Memoria 1-09 (Same as: l 13:22: Benadryl) Kai 00 EPINEPHrine 2015-05 Yes Notes: Memoria 1-09 MEDICATION l 13:22: WASTE Kai 00 Product Size: 1 mg Product Wasted: ___ mg Solu-CORTEF 2015-05 Yes Notes: Ed bandar 1-09 (Same as: l 13:22: Solu-JOHN [place] 00 F) Benadryl 2015-05 Yes Notes: Memoria 1-09 (Same as: l 13:22: Benadryl) [place] 00 Sodium 2015-05 Yes IV, 0 Memoria Chloride 1-09 ml/hr, l 0.9% IV 13:21: PRN, PRN Raudel n 00 Blood Transfusio n, Start date: 04/05/16 7:21:00 DANCE INSTRUCTOR, Duration: 30, 250 ml heparin 2015-05 Yes Notes: Memoria flush 1-09 (Same as: l 13:21: Heparin Kai 00 Lock Flush) BD Normal 2015-05 Yes Notes: Memori a Saline 1-09 (Same as: l Flush 13:21: BD [place] 00 Posiflush) Benadryl 2015-05 Yes Notes: Memoria 1-09 (Same as: l 13:21: Benadryl) Kai 00 Sodium 2015-05 Yes IV, 0 Memoria Chloride 1-09 ml/hr, l 0.9% IV 13:21: PRN, PRN Raudel n 00 Blood Transfusio n, Start date: 04/05/16 7:21:00 DANCE INSTRUCTOR, Duration: 30, 250 ml heparin 2015-05 Yes Notes: Memoria flush 1-09 (Same as: l 13:21: Heparin Kai 00 Lock Flush) BD Normal 2015-05 Yes Notes: Memori a Saline 1-09 (Same as: l Flush 13:21: BD [place] 00 Posiflush) Benadryl 2015-05 Yes Notes: Memoria 1-09 (Same as: l 13:21: Benadryl) [place] 00 Tylenol 2015-05 Yes Notes: Do Memor ia 06-05 not exceed l 13:20: 4 gm/day. [place] (Same as: Tylenol) Tylenol 2015-05 Yes Notes: Do Memor ia 06-05 not exceed l 13:20: 4 gm/day. Kai 00 (Same as: Tylenol) Acetaminoph 2015-05 No Notes: Ed bandar en 325 MG / 0-18 (Same as: l Hydrocodone 11:34: [place] Denita nn Bitartrate 00 325/5) Do 5 MG Oral not exceed Tablet 4gm/day of [[place] acetaminop 5/325] hen. Acetaminoph 2015-05 No Notes: Ed bandar en 325 MG / 0-18 (Same as: l Hydrocodone 11:34: [place] Denita nn Bitartrate 00 325/5) Do 5 MG Oral not exceed Tablet 4gm/day of [[place] acetaminop 5/325] hen. Acetaminoph 2015-05 No 1 tab, PO, Memoria en 300 MG / 0-18 Q4H, PRN l Codeine 09:54: Pain, X 2 Denita nn Phosphate 00 day, # 12 30 MG Oral tab, 0 Tablet Refill(s) [Tylenol with Codeine #3] Acetaminoph 2015-05 No 1 tab, PO, Memoria [...] 0-18 500 ml/hr, l 0.154 04:18: Infuse [place] MEQ/ML 00 Over: 1 Injectable hr, Route: Solution IV, 500, Drug form: INJ, ONCE, Priority: STAT, Dosing Weight 98.636 kg, Start date: 03/13/16 23:18:00 CDT, Duration: 1 doses or times, Stop date: 03/13/16 23:18:00 CDT Zofran 2015-05 No Notes: Memoria 0-18 (Same as: l 04:18: Zofran) Kai 00 MEDICATION WASTE Product Size: 4 mg Product Wasted: ___ mg Dilaudid 2015-05 No Notes: Memoria 0-18 Same as: l 04:18: Dilaudid [place] 00 Sodium 2015-05 No 500 mL, Memoria Chloride 0-18 500 ml/hr, l 0.154 04:18: Infuse [place] MEQ/ML 00 Over: 1 Injectable hr, Route: [...] 00 Pain Score 7-10, 0 Refill(s) Oxycodone Yes 15 mg = 3 Mem oria Hydrochlori 9-23 tab, PO, l de 5 MG 17:22: Q4H, PRN Raudel n Oral Tablet 00 Pain Score 7-10, 0 Refill(s) Oxycodone No Notes: Memori a Hydrochlori 9-23 (Same as: l de 5 MG 13:43: Roxicodone Herm delisa Oral Tablet 00 ) Oxycodone No Notes: Memori a Hydrochlori 9-23 (Same as: l de 5 MG 13:43: Roxicodone Herm delisa Oral Tablet 00 ) Ceftriaxone No Notes: Ed bandar - (Same As: l 20:00: Rocephin). Kai 00 Use with 100 mL NS and infuse over 30 min MEDICATION WASTE Product Size: 2000 mg Product Wasted: ___ mg Ceftriaxone No Notes: Ed bandar 9- (Same As: l 20:00: Rocephin). [place] 00 Use with 100 mL NS and infuse over 30 min MEDICATION WASTE Product Size: 2000 mg Product Wasted: ___ mg Albuterol Yes NEB, PRN, Mem oria 0.83 MG/ML 02-16 PRN l Inhalant 12:57: Respirator Her cook Solution y Protocol, 0 Refill(s) chlorhexidi Yes 1 appl, Mem oria ne 02-16 BATHE, l gluconate 12:57: Q-M--F, 0 He rmann 40 MG/ML 00 Refill(s) Medicated Liquid Soap tamsulosin Yes 0.4 mg = 1 M emoria 0.4 mg oral 02-16 cap, PO, l capsule 12:57: After [place] 00 Dinner, 0 Refill(s) fluconazole Yes 200 mg = 2 Memoria 100 mg oral 02-16 tab, PO, l tablet 12:57: [id number], 0 [place] nn 00 Refill(s) pantoprazol Yes 40 mg = 1 M emoria e 40 mg 02-16 tab, PO, l oral 12:57: Before Kai enteric 00 Breakfast, coated 0 tablet Refill(s) Acetaminoph Yes 1 tab, PO, Memoria en 325 MG / 02-16 Q4H, PRN l Hydrocodone 12:57: Pain Score [place] Bitartrate 00 1-3, 0 5 MG Oral Refill(s) Tablet Albuterol Yes NEB, PRN, Mem oria 0.83 MG/ML 02-16 PRN l Inhalant 12:57: Respirator Her cook Solution 00 y Protocol, 0 Refill(s) chlorhexidi Yes 1 appl, Mem oria ne 02-16 BATHE, l gluconate 12:57: Q-M-W-F, 0 He rmann 40 MG/ML 00 Refill(s) Medicated Liquid Soap tamsulosin Yes 0.4 mg = 1 M emoria 0.4 mg oral 02-16 cap, PO, l capsule 12:57: After [place] 00 Dinner, 0 Refill(s) fluconazole Yes 200 mg = 2 Memoria 100 mg oral -22 tab, PO, l tablet 12:57: [id number], 0 [place] nn 00 Refill(s) pantoprazol Yes 40 mg = 1 M emoria e 40 mg -22 tab, PO, l oral 12:57: Before [place] enteric 00 Breakfast, coated 0 tablet Refill(s) Acetaminoph Yes 1 tab, PO, Memoria en 325 MG / 9-22 Q4H, PRN l Hydrocodone 12:57: Pain Score Kai Bitartrate 00 1-3, 0 5 MG Oral Refill(s) Tablet cefTRIAXone No Notes: Ed bandar + sodium 9-20 (Same As: l chloride 23:00: Rocephin). Her cook 0.9% INJ 00 Use with 100 mL 100 mL NS and infuse over 30 min MEDICATION WASTE Product Size: 2000 mg Product Wasted: ___ mg cefTRIAXone No Notes: Ed bandar + sodium 9-20 (Same As: l chloride 23:00: Rocephin). Her cook 0.9% INJ 00 Use with 100 mL 100 mL NS and infuse over 30 min MEDICATION WASTE Product Size: 2000 mg Product Wasted: ___ mg Flomax No Notes: Memoria 9-18 (Same As: l 22:00: Flomax) Kai 00 "Do Not Crush" Flomax No Notes: Memoria 9-18 (Same As: l 22:00: Flomax) "Do Not Crush" vancomycin No 2001 mg: Me moria + sodium 9-18 infuse l chloride 11:00: over 2.5 Denita nn 0.9% INJ 00 hours 250 mL MEDICATION WASTE Product Size: 1000 mg Product Wasted: ___ mg vancomycin No 2001 mg: Me moria + sodium 9-18 infuse l chloride 11:00: over 2.5 Denita nn 0.9% INJ 00 hours 250 mL MEDICATION WASTE Product Size: 1000 mg Product Wasted: ___ mg Fluconazole No Notes: Ed bandar 9-17 (Same as: l 21:00: Diflucan) [place] Fluconazole No Notes: Ed bandar 9-17 (Same as: l 21:00: Diflucan) Dilaudid No Notes: Memoria 9- Same as: l 19:19: Dilaudid Dilaudid No Notes: Memoria 9 Same as: l 19:19: Dilaudid gabapentin No Notes: Memor ia - (Same as: l 18:00: Neurontin) gabapentin No Notes: Memor ia - (Same as: l 18:00: Neurontin) Naloxone No Notes: Memoria 9 Same as l 14:59: Narcan Lorazepam No [...] ve free. Hydralazine No Notes: Ed bandar -17 (Same as: l 14:59: Apresoline ) Push over 5 minutes Hydromorpho No Notes: Ed bandar ne -17 Same as: l 14:59: Dilaudid Labetalol No 10 mg, 2 Ed bandar 9-17 mL, Route: l 14:59: IVP, Drug form: INJ, Q5Min, Dosing Weight 96.023, kg, PRN Elevated BP, Start date: 02/12/16 9:59:00 CDT, Duration: 5 doses or times, Stop date: Limited # of times Naloxone No Notes: Memoria 917 Same as l 14:59: Narcan Lorazepam No [...] INJ, ONCE, Stop date: 02/12/16 8:40:00 CDT fentaNYL No Route: IV, Mem oria [...] INJ (ANES) 02-11 Total l 12:55: Volume: [place] 00 1,000, Start date: 02/12/16 7:55:00 CDT, Stop date: 02/12/16 8:55:00 CDT LR 1000 mL No Route: IV, M emoria INJ (ANES) 02-11 Total l 12:55: Volume: [place] 00 1,000, Start date: 02/12/16 7:55:00 CDT, Stop date: 02/12/16 8:55:00 CDT Ceftriaxone No Notes: Ed bandar 02-10 (Same As: l 18:00: Rocephin). Use with 100 mL NS and infuse over 30 min MEDICATION WASTE Product Size: 2000 mg Product Wasted: ___ mg Ceftriaxone No Notes: Ed bandar 02-10 (Same As: l 18:00: Rocephin). Use with 100 mL NS and infuse over 30 min MEDICATION WASTE Product Size: 2000 mg Product Wasted: ___ mg Dilaudid No Notes: Memoria 02-10 Same as: l 13:37: Dilaudid Dilaudid No Notes: Memoria 02-10 Same as: l 13:37: Dilaudid vancomycin No 2001 mg: Me moria 02-10 infuse l 11:00: over 2.5 [place] 00 hours vancomycin 0 No 2001 mg: Me moria 9-16 infuse l 11:00: over 2.5 Kai 00 hours metoprolol No Notes: Memor ia 9-15 (Same as: l 14:00: Toprol XL) Kai 00 May split tab, but do not crush. metoprolol No Notes: Memor ia 9-15 (Same as: l 14:00: Toprol XL) [place] 00 May split tab, but do not crush. Alprazolam No Notes: Memor ia 1 MG Oral 9-15 With food l Tablet 13:19: or milk [place] [Xanax] 00 (Same as: Xanax) Alprazolam No Notes: Memor ia 1 MG Oral 9-15 With food l Tablet 13:19: or milk [place] [Xanax] 00 (Same as: Xanax) vancomycin No 2001 mg: Me moria 9-15 infuse l 10:00: over 2.5 Kai 00 hours vancomycin No 2001 mg: Me moria 9-15 infuse l 10:00: over 2.5 [place] 00 hours Anoro No Anoro Memoria 62.5mcg/25 -15 62.5mcg/25 l mcg 01:00: mcg, 1 [place] 00 puff, Route: INHALATION , RBID, 02/09/16 20:00:00 CDT, Duration: 30 day, Stop date: 03/10/16 8:00:00 CDT Anoro No Anoro Memoria 62.5mcg/25 9-15 62.5mcg/25 l mcg 01:00: mcg, 1 Kai [...] or times, Stop date: 02/09/16 17:40:00 CDT ketOROLAC 2015-0 No 60 mg, Memori a 30 mg/mL 02-08 Route: l injectable 22:40: IVP, Drug He rmann solution 00 form: INJ, ONCE, Dosing Weight 96.023, kg, Start date: 02/09/16 17:40:00 CDT, Duration: 1 doses or times, Stop date: 02/09/16 17:40:00 CDT Vancomycin No Vancomycin M emoria Dosing per 9-14 Dosing per l RPh 19:51: RPh, ., [place] 00 Drug form: MISC, Route: MISC, PRN, PRN Other -See Comment, 02/09/16 14:51:00 CDT, Duration: 30 day, Stop date: 03/10/16 14:50:00 CDT Vancomycin 0 No Vancomycin M emoria Dosing per -14 Dosing per l RPh 19:51: RPh, ., Kai 00 Drug form: MISC, Route: MISC, PRN, PRN Other -See Comment, 02/09/16 14:51:00 CDT, Duration: 30 day, Stop date: 03/10/16 14:50:00 CDT Dilaudid 2015-0 No Notes: Memoria -14 Same as: l 18:01: Dilaudid [place] 00 Dilaudid 2015-0 No Notes: Memoria 9-14 Same as: l 18:01: Dilaudid Kai 00 Sodium 2015-0 No 500 mL, Memoria Chloride 9-14 500 ml/hr, l 0.154 17:59: Infuse [place] MEQ/ML 00 Over: 1 Injectable hr, Route: Solution IV, 500, Drug form: INJ, ONCE, Priority: STAT, Dosing Weight 96.023 kg, Start date: 02/09/16 12:59:00 CDT, Duration: 1 doses or times, Stop date: 02/09/16 12:59:00 CDT Sodium 2015-0 No 500 mL, Memoria Chloride 9-14 500 ml/hr, l 0.154 17:59: Infuse [place] MEQ/ML 00 Over: 1 Injectable hr, Route: Solution IV, 500, Drug form: INJ, ONCE, Priority: STAT, Dosing Weight 96.023 kg, Start date: 02/09/16 12:59:00 CDT, Duration: 1 doses or times, Stop date: 02/09/16 12:59:00 CDT chlorhexidi No Notes: Ed bandar ne -14 (Same As: l gluconate 14:00: Hibiclens) He rmann 40 MG/ML 00 Medicated Liquid Soap pantoprazol No Notes: Ed bandar e 9-14 Tablet l 14:00: should not Kai 00 be chewed or crushed. (Same as: Protonix) pantoprazol No Notes: Ed bandar e 9-14 Tablet l 14:00: should not [place] 00 be chewed or crushed. (Same as: Protonix) chlorhexidi No Notes: Ed bandar ne -14 (Same As: l gluconate 14:00: Hibiclens) He rmann 40 MG/ML 00 Medicated Liquid Soap Simvastatin No Notes: Ed bandar 02-08 (Same as: l 02:00: Zocor) [place] Cefuroxime No 1.5 gm, Ed bandar 14 Route: l 02:00: IVPB, [place] 00 [id number], Dosing Weight 96.023, kg, Start date: 02/08/16 21:00:00 CDT, Duration: 3 doses or times, Stop date: 02/09/16 13:00:00 CDT Simvastatin No Notes: Ed bandar 02-08 (Same as: l 02:00: Zocor) [place] 00 Cefuroxime 0 No 1.5 gm, Ed bandar 02-08 Route: l 02:00: IVPB, Kai 00 [id number], Dosing Weight 96.023, kg, Start date: 02/08/16 21:00:00 CDT, Duration: 3 doses or times, Stop date: 02/09/16 13:00:00 CDT Neutra-Phos No Notes: Ed bandar 14 Same as: l 01:04: Phos-Nak [place] 00 Mix 1 packet with 75 mL [...] 01:04: Mag-Ox Kai 00 400) Magnesium oxide [id number] g elemental magnesium Dose=____m g magnesium oxide (___mg elemental magnesium) Magnesium No Notes: Memori a Sulfate 02-08 WASTE: F/P l 01:04: - Sink; E [place] 00 - Municipal Trash Bin potassium No Notes: Memori a chloride 02-08 (Same as: l 01:04: Potassium [place] 00 Chloride) sodium No 15 mmol, 5 [...] WASTE: F/P l 01:04: - Sink; E [place] 00 - Municipal Trash Bin Albuterol No Notes: SEE Me moria 0.83 MG/ML 02-08 RT l Inhalant 01:04: DOCUMENTAT Her cook Solution 00 ION (Same as: Proventil) Dextrose No 25 gm, 50 Ed bandar 50% Syringe -14 mL, Route: l 01:04: IVP, Drug [place] 00 Form: INJ, Dosing Weight 96.023, kg, PRN, PRN Blood Glucose Results, Start date: 02/08/16 20:04:00 CDT, Duration: 30 day, Stop date: 03/09/16 20:03:00 CDT Docusate No Notes: Memoria 02-08 (Same as: l 01:04: Colace) [place] (Do Not Crush) Glucagon No 1 mg, Memoria 02-08 Route: IM, l 01:04: Drug form: Kai 00 PDR/INJ, PRN, Dosing Weight 96.023, kg, PRN Blood Glucose Results, Start date: 02/08/16 20:04:00 CDT, Duration: 30 day, Stop date: 03/09/16 20:03:00 CDT Acetaminoph No Notes: Ed bandar en 325 MG / 02-08 (Same as: l Hydrocodone 01:04: [place] Denita nn Bitartrate 00 325/5) Do 5 [...] - Sink; E - Municipal Trash Bin Neutra-Phos No Notes: Ed bandar 02-08 Same as: l 01:04: Phos-Nak [place] 00 Mix 1 packet with 75 mL [...] hours Magnesium No Notes: Memori a Oxide 9-14 (Same as: l 01:04: Mag-Ox Kai 00 400) Magnesium oxide [id number] g elemental magnesium Dose=____m g magnesium oxide (___mg elemental magnesium) Magnesium No Notes: Memori a Sulfate 02-08 WASTE: F/P l 01:04: - Sink; E Kai 00 - Municipal Trash Bin potassium No Notes: Memori a chloride 9-14 (Same as: l 01:04: Potassium [place] 00 Chloride) sodium No 15 mmol, 5 [...] USE ONLY Calcium No Notes: Memoria Carbonate 14 (Same As: l 500 MG 01:04: Tums) [...] Memoria 02-08 (Same as: l 01:04: Colace) [place] (Do Not Crush) Glucagon No 1 mg, Memoria 02-08 Route: IM, l 01:04: Drug form: [place] 00 PDR/INJ, PRN, Dosing Weight 96.023, kg, PRN Blood Glucose Results, Start date: 02/08/16 20:04:00 CDT, Duration: 30 day, Stop date: 03/09/16 20:03:00 CDT Acetaminoph No Notes: Ed bandar en 325 MG / 02-08 (Same as: l Hydrocodone 01:04: [place] Denita nn Bitartrate 00 325/5) Do 5 [...] Trash Bin Ondansetron No Notes: Ed bandar 9-13 (Same as: l 14:59: Zofran) MEDICATION WASTE Product Size: 4 mg Product Wasted: ___ mg Promethazin No 6.25 mg, Me moria e 9-13 25 mL, l 14:59: Route: Kai 00 [...] Labetalol No 10 mg, 2 Ed bandar 02-07 mL, Route: l 14:59: IVP, Drug form: INJ, Q5Min, Dosing Weight 96.023, kg, PRN Elevated BP, Start date: 02/08/16 9:59:00 CDT, Duration: 5 doses or times, Stop date: Limited # of times Ondansetron No Notes: Ed bandar 02-07 (Same as: l 14:59: Zofran) MEDICATION WASTE Product Size: 4 mg Product Wasted: ___ mg Promethazin No 6.25 mg, Me moria e 9-13 25 mL, l 14:59: Route: 00 IVPB, Drug form: SOLN, ONCE, Dosing [...] INJ, ONCE, Stop date: 02/08/16 9:40:00 CDT ondansetron No Route: IV, Memoria (ANES) 02-07 Drug form: l 14:40: INJ, ONCE, Stop date: 02/08/16 9:40:00 CDT hydromorpho No Route: IV, Memoria ne (ANES) 02-07 Drug form: l 14:15: INJ, ONCE, Stop date: 02/08/16 9:15:00 CDT hydromorpho No Route: IV, Memoria ne (ANES) 02-07 Drug form: l 14:15: INJ, ONCE, Stop date: 02/08/16 9:15:00 CDT LR 1000 mL No Route: IV, M emoria INJ (ANES) - Total l 14:08: Volume: Kai 00 1,000, Start date: 02/08/16 9:08:00 CDT, Stop date: 02/08/16 10:08:00 CDT LR 1000 mL No Route: IV, M emoria INJ (ANES) -13 Total l 14:08: Volume: Kai 00 1,000, Start date: 02/08/16 9:08:00 CDT, Stop date: 02/08/16 10:08:00 CDT heparin No Route: IV, Ed bandar (ANES) 02-07 Drug form: l 13:55: INJ, ONCE, Stop date: 02/08/16 8:55:00 CDT heparin 2016-0 No Route: IV, Ed bandar (ANES) 02-07 Drug form: l 13:55: INJ, ONCE, Stop date: 02/08/16 8:55:00 CDT fentaNYL 2015-0 No Route: IV, Mem oria (ANES) 02-07 Drug form: l 13:40: INJ, ONCE, Stop date: 02/08/16 8:40:00 CDT propofol 2015-0 No Route: IV, Mem oria (ANES) 02-07 Drug form: l 13:40: INJ, ONCE, Stop date: 02/08/16 8:40:00 CDT lidocaine 2015-0 No Route: IV, Me moria (ANES) 02-07 Drug form: l 13:40: INJ, ONCE, Stop date: 02/08/16 8:40:00 CDT midazolam 2015-0 No Route: IV, Me moria (ANES) 02-07 Drug form: l 13:40: SOLN, ONCE, Stop date: 02/08/16 8:40:00 CDT rocuronium 2015-0 No Route: IV, M emoria (ANES) 02-07 Drug form: l 13:40: INJ, ONCE, Stop date: 02/08/16 8:40:00 CDT fentaNYL 2015-0 No Route: IV, Mem oria (ANES) 02-07 Drug form: l 13:40: INJ, ONCE, Stop date: 02/08/16 8:40:00 CDT propofol 2015-0 No Route: IV, Mem oria (ANES) 02-07 Drug form: l 13:40: INJ, ONCE, Stop date: 02/08/16 8:40:00 CDT lidocaine 2015-0 No Route: IV, Me moria (ANES) 02-07 Drug form: l 13:40: INJ, ONCE, Stop date: 02/08/16 8:40:00 CDT midazolam 2016-0 No Route: IV, Me moria (ANES) 9 Drug form: l 13:40: SOLN, 00 ONCE, Stop date: 02/08/16 8:40:00 CDT rocuronium No Route: IV, M emoria (ANES) 02-07 Drug form: l 13:40: INJ, ONCE, Stop date: 02/08/16 8:40:00 CDT piperacilli No IV, ONCE Me moria n-tazobacta 02-07 l m (ANES) 13:25: [place] 00 famotidine No Route: IV, M emoria (ANES) 02-07 Drug form: l 13:25: INJ, ONCE, Stop date: 02/08/16 8:25:00 CDT piperacilli No IV, ONCE Me moria n-tazobacta 02-07 l m (ANES) 13:25: [place] 00 famotidine No Route: IV, M emoria (ANES) 02-07 Drug form: l 13:25: INJ, ONCE, Stop date: 02/08/16 8:25:00 CDT Rifadin IV No Notes: Memor ia 02-07 Child:10-2 l 12:00: 0mg/kg ,<= [place] 00 600mg/day. Protect from light (Same as: Rifadin) Lidocaine No 5 mg, Memoria Hydrochlori 02-07 Route: l de 10 MG/ML 12:00: INTRADERM, Kai Injectable 00 Dosing Solution Weight 98.636, kg, ONCALL, Start date: 02/08/16 7:00:00 CDT, Duration: 30 day, Stop date: 03/09/16 6:59:00 CDT Rifadin IV No Notes: Memor ia 02-07 Child:10-2 l 12:00: 0mg/kg ,<= [place] 00 600mg/day. Protect from light (Same as: Rifadin) Lidocaine No 5 mg, Memoria Hydrochlori 02-07 Route: l de 10 MG/ML 12:00: INTRADERM, Kai Injectable 00 Dosing Solution Weight 98.636, kg, ONCALL, Start date: 02/08/16 7:00:00 CDT, Duration: 30 day, Stop date: 03/09/16 6:59:00 CDT Lactated 2016-0 No 1,000 mL, Ed bandar Ringers 9-13 Rate: 40 l 1,000 mL 11:31: ml/hr, Kai 00 Infuse over: 25 hr, Route: IV, Dosing Weight 98.636 kg, Total Volume: 1,000, Start date: 02/08/16 6:31:00 CDT, Duration: 30 day, Stop date: 03/09/16 6:30:00 CDT Lactated 2016-0 No 1,000 mL, Ed bandar Ringers - Rate: 40 l 1,000 mL 11:31: ml/hr, [place] 00 Infuse over: 25 hr, Route: IV, Dosing Weight 98.636 kg, Total Volume: 1,000, Start date: 02/08/16 6:31:00 CDT, Duration: 30 day, Stop date: 03/09/16 6:30:00 CDT Roxicodone 2016-0 No 15 mg, Memor ia 9-12 Route: PO, l 17:00: Drug form: [place] 00 TAB, Q4H, Start date: 02/07/16 12:00:00 CDT, Stop date: 03/08/16 8:00:00 CDT Roxicodone 2016-0 No 15 mg, Memor ia 9-12 Route: PO, l 17:00: Drug form: [place] 00 TAB, Q4H, Start date: 02/07/16 12:00:00 CDT, Stop date: 03/08/16 8:00:00 CDT Roxicodone 2015-0 No Notes: Memor ia 9-12 (Same as: l 15:35: Roxicodone Kai 00 ) Roxicodone 2016-0 No Notes: Memor ia 9-12 (Same as: l 15:35: Roxicodone [place] 00 ) oxyCODONE 2016-0 No 15 mg, Memori a 10 mg 9-10 Route: PO, l extended 23:00: Drug form: Her cook release 00 ERTAB, Q6H, Start date: 02/05/16 18:00:00 CDT, Duration: 30 day, Stop date: 03/06/16 12:00:00 CDT oxyCODONE No 15 mg, Memori a 10 mg 02-04 Route: PO, l extended 23:00: Drug form: Her cook release 00 ERTAB, Q6H, Start date: 02/05/16 18:00:00 CDT, Duration: 30 day, Stop date: 03/06/16 12:00:00 CDT Roxicodone No Notes: Memor ia 9-10 (Same as: l 20:21: Roxicodone ) Roxicodone No Notes: Memor ia 9-10 (Same as: l 20:21: Roxicodone ) Dilaudid No Notes: Memoria 9-10 Same as: l 20:04: Dilaudid Dilaudid No Notes: Memoria 9-10 Same as: l 20:04: Dilaudid sodium No 1,000 mL, Memori a chloride 02-03 Rate: 50 l 0.9% 1000 16:14: ml/hr, Raudel n ml INJ 00 Infuse 1,000 mL over: 20 hr, Route: IV, Dosing Weight 97.273 kg, Total Volume: 1,000, Start date: 02/04/16 11:14:00 CDT, Stop date: 03/05/16 11:13:00 CDT sodium No 1,000 mL, Memori a chloride 02-03 Rate: 50 l 0.9% 1000 16:14: ml/hr, Raudel n ml INJ 00 Infuse 1,000 mL over: 20 hr, Route: IV, Dosing Weight 97.273 kg, Total Volume: 1,000, Start date: 02/04/16 11:14:00 CDT, Stop date: 03/05/16 11:13:00 CDT vancomycin No 2000 mg: Me moria 02-01 infuse l 20:00: over 2.5 [place] 00 hours vancomycin No 2000 mg: Me moria 02-01 infuse l 20:00: over 2.5 [place] 00 hours atorvastati No Notes: Ed bandar n 02-01 (Same as: l 02:00: Lipitor) Kai 00 atorvastati No Notes: Ed bandar n 02-01 (Same as: l 02:00: Lipitor) Vancomycin No 1 mame Thomas a 01-31 Route: l 20:00: MISC, Kai 00 Dosing Weight 97.273, kg, ONCALL, Start date: 02/01/16 15:00:00 CDT, Duration: 1 doses or times, Pharmacy to dose Vancomycin No 1 mame Thomas a 01-31 Route: l 20:00: MISC, Kai Dosing Weight 97.273, kg, ONCALL, Start date: 02/01/16 15:00:00 CDT, Duration: 1 doses or times, Pharmacy to dose Acetaminoph No Notes: Do M emoria en 325 MG / 01-31 not exceed l Hydrocodone 18:10: 4gm/day of Kai Bitartrate 00 acetaminop 10 MG Oral hen. (Same Tablet as: [place] [[place] 325/10) 10325] Acetaminoph No Notes: Do M emoria en 325 MG / 01-31 not exceed l Hydrocodone 18:10: 4gm/day of Kai Bitartrate 00 acetaminop 10 MG Oral hen. (Same Tablet as: [place] [[place] 325/10) 10/325] Tylenol No Notes: Do Memor ia 01-31 not exceed l 18:02: 4 gm/day. (Same as: Tylenol) Tylenol No Notes: Do Memor ia 01-31 not exceed l 18:02: 4 gm/day. [place] 00 (Same as: Tylenol) Vancomycin No 2000 mg: Me moria 01-31 infuse l 18:00: over 2.5 [place] 00 hours MEDICATION WASTE Product Size: 1000 mg Product Wasted: ___ mg Zosyn No Notes: Memoria 01-31 (Same as: l 18:00: Zosyn) Dosing based on Piperacill in component MEDICATION WASTE Product Size: 3375 mg Product Wasted: ___ mg Vancomycin No 2000 mg: Me moria 01-31 infuse l 18:00: over 2.5 [place] 00 hours MEDICATION WASTE Product Size: 1000 mg Product Wasted: ___ mg Zosyn No Notes: Memoria 9- (Same as: l 18:00: Zosyn) Dosing based on Piperacill in component MEDICATION WASTE Product Size: 3375 mg Product Wasted: ___ mg Lisinopril No Notes: Memor ia 9- (Same as: l 14:00: Prinivil, Kai 00 Zestril) Amlodipine No Notes: Memor ia 9 (Same as: l 14:00: Norvasc) cilostazol No Notes: Memor ia 9-06 Non-Formul l 14:00: tamara Drug. (Same As: Pletal) Doxazosin No Notes: Memori a 9- (Same as: l 14:00: Cardura) gabapentin No Notes: Memor ia 9- (Same as: l 14:00: Neurontin) 24 HR No Notes: Memoria Metoprolol 9- (Same as: l Tartrate 14:00: Toprol XL) Her cook 100 MG 00 May split Extended tab, but Release do not Tablet crush. [Toprol] Lisinopril No Notes: Memor ia 9- (Same as: l 14:00: Prinivil, Kai 00 Zestril) Amlodipine No Notes: Memor ia 9- (Same as: l 14:00: Norvasc) cilostazol No Notes: Memor ia 9-06 Non-Formul l 14:00: tamara Drug. (Same As: Pletal) Doxazosin No Notes: Memori a 9- (Same as: l 14:00: Cardura) gabapentin No Notes: Memor ia 9-06 (Same as: l 14:00: Neurontin) [place] 00 24 HR No Notes: Memoria Metoprolol 9-06 (Same as: l Tartrate 14:00: Toprol XL) Her cook 100 MG 00 May split Extended tab, but Release do not Tablet crush. [Toprol] Alprazolam No Notes: Memor ia 2 MG Oral 01-31 With food l Tablet 13:23: or milk Kai 00 (Same as: Xanax) Alprazolam No Notes: Memor ia 2 MG Oral 01-31 With food l Tablet 13:23: or milk Kai 00 (Same as: Xanax) Albuterol No Notes: Memori a 0.833 MG/ML 01-31 (Same as: :22: Duoneb) Kai Ipratropium 00 [place] 0.167 MG/ML Inhalant Solution Albuterol No Notes: Memori a 0.833 MG/ML 01-31 (Same as: :22: Duoneb) [place] Ipratropium 00 [place] 0.167 MG/ML Inhalant Solution Zofran No Notes: Memoria 01-31 (Same as: l 06:24: Zofran) Kai 00 MEDICATION WASTE Product Size: 4 mg Product Wasted: ___ mg Zofran No Notes: Memoria 01-31 (Same as: l 06:24: Zofran) Kai 00 MEDICATION WASTE Product Size: 4 mg Product Wasted: ___ mg Dilaudid No Notes: Memoria 01-31 Same as: l 06:23: Dilaudid [place] 00 Dilaudid No Notes: Memoria 01-31 Same as: l 06:23: Dilaudid [place] 00 Acetaminoph No 1 tab, PO, Memoria [...] l 62.5 mcg-25 04:53: Daily, # 1 [place] mcg 00 ea, 3 inhalation Refill(s) powder Alprazolam Yes 2 mg = 1 Mem oria 2 MG Oral 01-31 tab, PO, l Tablet 04:53: BID, PRN [place] 00 Anxiety, # 20 tab, 0 Refill(s) Furosemide Yes 20 mg = 1 Me moria 20 MG Oral 01-31 tab, PO, l Tablet 04:53: Daily, # [place] 00 30 tab, 0 Refill(s) cilostazol Yes 100 mg = 1 M emoria 100 mg oral 01-31 tab, PO, l tablet 04:53: BID, # 60 Raudel n 00 tab, 0 Refill(s) Acetaminoph No 1 tab, PO, Memoria en 300 MG / 01-31 BID, PRN l Codeine 04:53: pain, # 28 Herm delisa Phosphate 00 tab, 0 30 MG Oral Refill(s) Tablet lisinopril Yes 10 mg = 1 Me moria 10 mg oral 01-31 tab, PO, l tablet 04:53: Daily, # [place] 00 30 tab, 0 Refill(s) metoprolol Yes 100 mg = 1 M emoria tartrate 01-31 tab, PO, l 100 mg oral 04:53: BID, # 60 H ermann tablet 00 tab, 0 Refill(s) Centrum Yes 1 tab, PO, Ed bandar Adults oral 01-31 Daily, 0 l tablet 04:53: Refill(s) Raudel n 00 doxazosin 1 2016 Yes 1 mg = 1 Me moria mg oral -06 tab, PO, l tablet 04:53: Daily, # [place] 00 30 tab, 0 Refill(s) atorvastati 2016 Yes 40 mg = 1 M emoria n 40 mg -06 tab, PO, l oral tablet 04:53: Bedtime, # Kai 00 30 tab, 0 Refill(s) Anoro 2016 Yes 1 puff, Memoria Ellipta 01-31 INHALER, [...] tab, PO, l Tablet 04:53: Daily, # [place] 00 30 tab, 0 Refill(s) cilostazol Yes 100 mg = 1 M emoria 100 mg oral 01-31 tab, PO, l tablet 04:53: BID, # 60 Raudel n 00 tab, 0 Refill(s) Acetaminoph No 650 mg, Mem oria en 01-31 Route: PO, l 03:28: Drug form: [place] 00 TAB, ONCE, Dosing Weight 95, kg, Priority: STAT, Start date: 01/31/16 22:28:00 CDT, Stop date: 01/31/16 22:28:00 CDT Acetaminoph 0 No 650 mg, Mem oria en 01-31 Route: PO, l 03:28: Drug form: [place] 00 TAB, ONCE, Dosing Weight 95, kg, Priority: STAT, Start date: 01/31/16 22:28:00 CDT, Stop date: 01/31/16 22:28:00 CDT Piperacilli No Notes: Ed bandar 01-30 (Same as: l tazobactam 22:57: Zosyn) Denita nn Dosing based on Piperacill in component MEDICATION WASTE Product Size: 3375 mg Product Wasted: ___ mg Vancomycin No 2000 mg: Me moria 01-30 infuse l 22:57: over 2.5 [place] 00 hours MEDICATION WASTE Product Size: 1000 mg Product Wasted: ___ mg Piperacilli No Notes: Ed bandar n 01-30 (Same as: l tazobactam 22:57: Zosyn) Denita nn 00 Dosing based on Piperacill in component MEDICATION WASTE Product Size: 3375 mg Product Wasted: ___ mg Vancomycin No 2000 mg: Me moria 01-30 infuse l 22:57: over 2.5 [place] 00 hours MEDICATION WASTE Product Size: 1000 mg Product Wasted: ___ mg Sodium No 1,000 mL, Memori a Chloride 01-30 2,000 l 0.154 22:04: ml/hr, [place] MEQ/ML 00 Infuse Injectable Over: 30 Solution minutes, Route: IV, 1,000, Drug form: INJ, ONCE, Priority: STAT, Dosing Weight 95 kg, Start date: 01/31/16 17:04:00 CDT, Duration: 1 doses or times, Stop date: 01/31/16 17:04:00 CDT Sodium No 1,000 mL, Memori a Chloride 01-30 2,000 l 0.154 22:04: ml/hr, [place] MEQ/ML 00 Infuse Injectable Over: 30 Solution minutes, Route: IV, 1,000, Drug form: INJ, ONCE, Priority: STAT, Dosing Weight 95 kg, Start date: 01/31/16 17:04:00 CDT, Duration: 1 doses or times, Stop date: 01/31/16 17:04:00 CDT Acetaminoph No Notes: Do M emoria en 325 MG / 01-30 not exceed l Hydrocodone 21:57: 4gm/day of [place] Bitartrate 00 acetaminop 10 MG Oral hen. (Same Tablet as: [place] [[place] 325/10) 10/325] Acetaminoph No Notes: Do M emoria en 325 MG / 01-30 not exceed l Hydrocodone 21:57: 4gm/day of Bitartrate 00 acetaminop 10 MG Oral hen. (Same Tablet as: [place] [[place] 325/10) 10/325] Amlodipine Yes 10 mg, PO, M emoria 9-05 Daily, 0 l 21:17: Refill(s) gabapentin Yes 300 mg, Ed bandar 9-05 PO, BID, 0 l 21:17: Refill(s) Amlodipine Yes 10 mg, PO, M emoria 9-05 Daily, 0 l 21:17: Refill(s) gabapentin Yes 300 mg, Ed bandar 9-05 PO, BID, 0 l 21:17: Refill(s) atorvastati No Notes: Ed bandar n 02-17 (Same As: l 02:00: Lipitor) atorvastati No Notes: Ed bandar n 02-17 (Same As: l 02:00: Lipitor) lovastatin Yes 20 mg = 1 Me moria 20 mg oral 22 tab, PO, l tablet 19:49: Bedtime, # Denita nn 00 30 tab, 0 Refill(s), given to patient lovastatin Yes 20 mg = 1 Me moria 20 mg oral -22 tab, PO, l tablet 19:49: Bedtime, # [...] 14:00: Lopressor) Microzide No Notes: Memori a - (Same as: l 14:00: Hydrodiuri Kai 00 l). Give with food. pneumococca No Notes: Ed bandar l capsular 02-16 (Same as: l polysacchar 14:00: Pneumovax H ermann ramandeep type 1 23) vaccine / Refrigerat pneumococca e l capsular polysacchar ramandeep type 10A vaccine / pneumococca l capsular polysacchar ramandeep type 11A vaccine / pneumococca l capsular polysacchar ramandeep type 12F vaccine / pneumococca l capsular polysacchar Hydrochloro No 1 tab, Ed bandar thiazide [...] tartrate 02-16 (Same as: l 14:00: Lopressor) [place] 00 Microzide No Notes: Memori a 02-16 (Same as: l 14:00: Hydrodiuri [place] 00 l). Give with food. pneumococca No Notes: Ed bandar l capsular 02-16 (Same as: l polysacchar 14:00: Pneumovax H ermann ramandeep type 1 23) vaccine / Refrigerat pneumococca e l [...] / 02-16 (Same as: l Hydrocodone 04:39: [place] Denita nn Bitartrate 00 325/5) Do 5 MG Oral not exceed Tablet 4gm/day of [[place] acetaminop 5/325] hen. Alprazolam No Notes: Memor ia 0.25 MG 02-16 With food l Oral Tablet 04:39: or milk Her cook [Xanax] 00 (Same as: Xanax) Acetaminoph No Notes: Ed bandar en 325 MG / 02-16 (Same as: l Hydrocodone 04:39: [place] Denita nn Bitartrate 00 325/5) Do 5 MG Oral not exceed Tablet 4gm/day of [[place] acetaminop 5/325] hen. Tessalon No Notes: Memoria Perles 02-16 (Same As: l 01:00: Tessalon [place] Perles) "Do Not Crush" Tessalon No Notes: Memoria Perles 02-16 (Same As: l 01:00: Tessalon Kai 00 Perles) "Do Not Crush" Acetaminoph Yes 1 tab, PO, Memoria en 325 MG / 02-16 Q12H, PRN l Hydrocodone 00:48: Pain, # 30 [place] Bitartrate 00 tab, 0 5 MG Oral Refill(s) Tablet [[place] 5/325] Alprazolam Yes 0.25 mg = Me moria 0.25 MG 02-16 1 tab, PO, l Oral Tablet 00:48: BID, PRN He rmann [Xanax] 00 Anxiety, Stress, # 20 tab, 0 Refill(s) metoprolol Yes 25 mg, PO, M emoria tartrate 02-16 BID, 0 l 00:48: Refill(s) [place] 00 Acetaminoph Yes 1 tab, PO, Memoria en 325 MG / 02-16 Q12H, PRN l Hydrocodone 00:48: Pain, # 30 [place] Bitartrate 00 tab, 0 5 MG Oral Refill(s) Tablet [[place] 5/325] Alprazolam Yes 0.25 mg = Me moria 0.25 MG 02-16 1 tab, PO, l Oral Tablet 00:48: BID, PRN He rmann [Xanax] 00 Anxiety, Stress, # 20 tab, 0 Refill(s) metoprolol Yes 25 mg, PO, Kalli emoria tartrate 02-16 BID, 0 l 00:48: Refill(s) Kai 00 NS 1,000 mL No 1,000 mL, M emoria 02-15 Rate: 75 l 23:04: ml/hr, Kai 00 Infuse over: 13.3 hr, Route: IV, Dosing Weight 13.636 kg, Total Volume: 1,000, Start date: 02/15/15 18:04:00, Duration: 30 day, Stop date: 03/17/15 18:03:00 NS 1,000 mL No 1,000 mL, Kalli emoria 02-15 Rate: 75 l 23:04: ml/hr, [place] 00 Infuse over: 13.3 hr, Route: IV, Dosing Weight 13.636 kg, Total Volume: 1,000, Start date: 02/15/15 18:04:00, Duration: 30 day, Stop date: 03/17/15 18:03:00 Xopenex No Notes: SEE Ed bandar 02-15 RT l 23:03: DOCUMENTAT [place] 00 ION (Same as:Xopenex ) Non-Formul tamara Acetaminoph No Notes: Do M emoria en 325 MG / 02-15 not exceed l Hydrocodone 23:03: 4gm/day of [place] Bitartrate 00 acetaminop 10 MG Oral hen. (Same Tablet as: [place] [[place] 325/10) ] Xopenex No Notes: SEE Ed bandar 02-15 RT l 23:03: DOCUMENTAT [place] 00 ION (Same as:Xopenex ) Non-Formul tamara Acetaminoph No Notes: Do M emoria en 325 MG / 02-15 not exceed l Hydrocodone 23:03: 4gm/day of [place] Bitartrate 00 acetaminop 10 MG Oral hen. (Same Tablet as: [place] [[place] 325/10) 10325] Albuterol No Notes: Memori a 0.833 MG/ML 02-15 (Same as: l / 20:51: Duoneb) Kai Ipratropium 00 [place] 0.167 MG/ML Inhalant Solution [DuoNeb] Albuterol No Notes: Memori a 0.833 MG/ML 02-15 (Same as: l / 20:51: Duoneb) Ipratropium 00 [place] 0.167 MG/ML Inhalant Solution [DuoNeb] Aspirin No Notes: [facility] 02-15 Take with l 20:00: food. Aspirin No Notes: [facility] 02-15 Take with l 20:00: food. tramadol Yes 100 mg = 2 Mem oria hydrochlori 9-15 tab, PO, l de 50 MG 21:05: Q6H, PRN Denita nn Oral Tablet 00 pain, X 3 [Ultram] day, # 20 tab, 0 Refill(s) tramadol Yes 100 mg = 2 Mem oria hydrochlori 9-15 tab, PO, l de 50 MG 21:05: Q6H, PRN Denita nn Oral Tablet 00 pain, X 3 [Ultram] day, # 20 tab, 0 Refill(s) Tylenol No Notes: Do Memor ia 02-09 not exceed l 20:47: 4 gm/day. (Same as: Tylenol) Tylenol No Notes: Do Memor ia 915 not exceed l 20:47: 4 gm/day. (Same as: Tylenol) Sodium No 1,000 mL, Memori a Chloride 8-29 1,000 l 0.154 19:39: ml/hr, [place] MEQ/ML 00 Infuse Injectable Over: 1 Solution hr, Route: IV, 1,000, Drug form: INJ, ONCE, Priority: STAT, Dosing Weight 104.545 kg, Start date: 01/23/15 14:39:00, Duration: 1 doses or times, Stop date: 01/23/15 14:39:00 Saline No Notes: [facility] Flush 0.9% 01-23 preservati l 19:39: ve free. Sodium No 1,000 mL, Memori a Chloride 8-29 1,000 l 0.154 19:39: ml/hr, Kai MEQ/ML 00 Infuse Injectable Over: 1 Solution hr, Route: IV, 1,000, Drug form: INJ, ONCE, Priority: STAT, Dosing Weight 104.545 kg, Start date: 01/23/15 14:39:00, Duration: 1 doses or times, Stop date: 01/23/15 14:39:00 Saline 2014- No Notes: [facility] Flush 0.9% 829 preservati l 19:39: ve free. Kai 00 Immunizations Ordered Immunization Filled Immunization Date Status Commen ts Source Name Name pneumococcal 2015-02-16 Completed [facility] 23-valent vaccine 13:53:00 [place] pneumococcal 2015-02-16 Completed [facility] 23-valent vaccine 13:53:00 [facility] Vital Signs Vital Name Observation Time Observation Value Comments Source Systolic blood 2021-04-04 05:00:00 102 mm[Hg] [facility] Diastolic blood 2021-04-04 05:00:00 62 mm[Hg] [facility] Heart rate 2021-04-04 05:00:00 89 /min [facility] Oxygen saturation in 2021-04-04 05:00:00 99 /min [facility] Arterial blood by [facility] Pulse oximetry [facility] Respiratory rate 2021-04-04 04:00:00 16 /min [facility] Body temperature 2021-04-04 03:37:[address] [facility] Body height 2021-04-04 03:37:00 185.4 cm [facility] Body weight 2021-04-04 03:37:00 72.576 kg [facility] BMI 2021-04-04 03:37:00 21.11 kg/m2 [facility] WEIGHT 2020-01-02 00:00:00 85.276 kg WEIGHT 2020-01-02 00:00:00 85.276 kg Systolic (mm Hg) 2016-04-05 18:57:00 Ed Quinn Diastolic (mm Hg) 2016-04-05 18:57:00 Loco Quinn Respitory Rate 2016-04-05 18:57:00 Thomas Harrell Heart Rate 2016-04-05 18:57:00 Chacorta Quinn Systolic (mm Hg) 2016-04-05 18:27:00 Ed rial Kai Diastolic (mm Hg) 2016-04-05 18:27:00 Mem orial Kia Respitory Rate 2016-04-05 18:27:00 Memori al [place] Heart Rate 2016-04-05 18:27:00 [facility] Respitory Rate 2016-04-05 17:57:00 [facility] al [facility] Heart Rate 2016-04-05 17:57:00 [facility] Systolic (mm Hg) 2016-04-05 17:57:00 Ed rial [place] Diastolic (mm Hg) 2016-04-05 17:57:00 Mem orial Kai Temperature Oral (F) 2016-04-05 17:35:00 97.7 F [facility] Temperature Oral (F) 2016-04-05 17:27:00 97.7 F [facility] Temperature Oral (F) 2016-04-05 16:22:00 98.2 F [facility] Weight 2016-04-05 13:20:00 [facility] [place] BMI Calculated 2016-04-05 13:20:00 [facility] [place] Height 2016-04-05 13:20:00 185 cm [facility] [place] Respitory Rate 2016-03-14 11:00:00 [facility] [place] Systolic (mm Hg) 2016-03-14 11:00:00 Ed rial [place] Diastolic (mm Hg) 2016-03-14 11:00:00 Mem orial Kai Systolic (mm Hg) 2016-03-14 10:00:00 Ed rial [place] Diastolic (mm Hg) 2016-03-14 10:00:00 Mem [facility] [place] Respitory Rate 2016-03-14 10:00:00 [facility] [place] Temperature Oral (F) 2016-03-14 09:00:00 98.8 F [facility] Respitory Rate 2016-03-14 09:00:00 [facility] Systolic (mm Hg) 2016-03-14 09:00:00 Ed rial [place] Diastolic (mm Hg) 2016-03-14 09:00:00 Mem o[facility] Kai Temperature Oral (F) 2016-03-14 05:00:00 98.7 F [facility] [place] Heart Rate 2016-03-14 03:48:00 [facility] BMI Calculated 2016-03-13 23:42:00 [facility] Weight 2016-03-13 23:42:00 [facility] Temperature Oral (F) 2016-03-13 23:42:00 98.6 F [facility] [place] Height 2016-03-13 23:42:00 185.42 cm [facility] Heart Rate 2016-03-13 23:42:00 [facility] [place] Heart Rate 2016-02-18 19:19:00 [facility] [place] Temperature Oral (F) 2016-02-18 19:19:00 98.8 F [facility] Respitory Rate 2016-02-18 19:19:00 Memori [facility] Systolic (mm Hg) 2016-02-18 19:19:00 Ed rial [place] Diastolic (mm Hg) 2016-02-18 19:19:00 [facility] [place] Temperature Oral (F) 2016-02-18 15:28:00 98.3 F [facility] Heart Rate 2016-02-18 15:28:00 [facility] [place] Systolic (mm Hg) 2016-02-18 15:28:00 Ed rial Kai Diastolic (mm Hg) 2016-02-18 15:28:00 Mem o[facility] [place] Respitory Rate 2016-02-18 15:28:00 [facility] [place] Temperature Oral (F) 2016-02-18 12:40:00 98.2 F [facility] Heart Rate 2016-02-18 12:40:00 [facility] Systolic (mm Hg) 2016-02-18 12:40:00 Ed rial [place] Diastolic (mm Hg) 2016-02-18 12:40:00 Mem orial Kai Respitory Rate 2016-02-18 12:40:00 [facility] [place] Weight 2016-02-08 11:10:00 [facility] BMI Calculated 2016-02-08 10:24:00 [facility] [place] Weight 2016-02-08 10:24:00 [facility] Height 2016-02-08 10:24:00 185.42 cm [facility] Weight 2016-02-01 04:41:00 [facility] [place] BMI Calculated 2016-02-01 04:41:00 [facility] [place] Height 2016-02-01 04:41:00 185.42 cm [facility] [place] Height 2016-01-31 19:21:00 185.42 cm [facility] [place] BMI Calculated 2016-01-31 19:21:00 [facility] [place] Respitory Rate 2015-02-16 18:18:00 [facility] [place] Temperature Oral (F) 2015-02-16 17:50:00 98.0 F [facility] Respitory Rate 2015-02-16 17:50:00 [facility] Heart Rate 2015-02-16 17:50:00 [facility] [place] Systolic (mm Hg) 2015-02-16 17:50:00 Ed rial Kai Diastolic (mm Hg) 2015-02-16 17:50:00 [facility] [place] Temperature Oral (F) 2015-02-16 12:35:00 98.2 F [facility] [place] Heart Rate 2015-02-16 12:35:00 [facility] Systolic (mm Hg) 2015-02-16 12:35:00 Ed rial Kai Diastolic (mm Hg) 2015-02-16 12:35:00 Mem o[facility] Respitory Rate 2015-02-16 12:35:00 [facility] [place] Temperature Oral (F) 2015-02-16 09:00:00 97.5 F [facility] Systolic (mm Hg) 2015-02-16 09:00:00 Ed rial [place] Diastolic (mm Hg) 2015-02-16 09:00:00 Mem o[facility] Heart Rate 2015-02-16 09:00:00 [facility] [place] Height 2015-02-16 00:50:00 185.42 cm [facility] BMI Calculated 2015-02-16 00:50:00 [facility] [place] Weight 2015-02-16 00:50:00 [facility] Weight 2015-02-15 17:48:00 [facility] [place] BMI Calculated 2015-02-15 17:48:00 [facility] Height 2015-02-15 17:48:00 185.42 cm [facility] [place] Temperature Oral (F) 2015-02-09 21:12:00 98.2 F [facility] Heart Rate 2015-02-09 21:12:00 [facility] Respitory Rate 2015-02-09 21:12:00 [facility] [place] Systolic (mm Hg) 2015-02-09 21:12:00 Ed rial Kai Diastolic (mm Hg) 2015-02-09 21:12:00 Mem o[facility] Kai BMI Calculated 2015-02-09 20:27:00 [facility] [place] Weight 2015-02-09 20:27:00 [facility] Height 2015-02-09 20:27:00 185.42 cm [facility] Systolic (mm Hg) 2015-02-09 20:27:00 Ed rial [place] Diastolic (mm Hg) 2015-02-09 20:27:00 Mem orial Kai Heart Rate 2015-02-09 20:27:00 [facility] [place] Respitory Rate 2015-02-09 20:27:00 [facility] Systolic (mm Hg) 2015-01-23 23:00:00 Ed rial [place] Diastolic (mm Hg) 2015-01-23 23:00:00 Mem o[facility] Kai Systolic (mm Hg) 2015-01-23 22:00:00 Ed rial Kai Diastolic (mm Hg) 2015-01-23 22:00:00 Mem o[facility] Systolic (mm Hg) 2015-01-23 21:00:00 Ed rial [place] Diastolic (mm Hg) 2015-01-23 21:00:00 [facility] [place] Respitory Rate 2015-01-23 19:15:00 [facility] Weight 2015-01-23 18:26:00 [facility] [place] Height 2015-01-23 18:26:00 185.42 cm [facility] BMI Calculated 2015-01-23 18:26:00 [facility] Respitory Rate 2015-01-23 18:26:00 Memori al Kai Heart Rate 2015-01-23 18:26:00 [facility] Kai Temperature Oral (F) 2015-01-23 18:26:00 98.5 F [facility] Procedures Procedure Date / Time Performing Clinician Source Performed CT HEAD WO CONTRAST 2021-04-04 04:32:50 Majo Antunez [facility] XR CERVICAL SPINE 3 VW 2021-04-04 04:21:36 Majo Antunez [facility] XR SHOULDER 2+ VW RIGHT 2021-04-04 04:21:36 Majo Antunez [facility] BASIC METABOLIC PANEL 2021-04-04 03:59:00 Majo Antunez [facility] (NA, K, CL, CO2, Medical Branch GLUCOSE, BUN, CREATININE, CA) CBC WITH DIFF 2021-04-04 03:59:00 Majo Antunez [facility] Medical Branch NOTICE OF PRIVACY 2021-04-04 03:21:27 [facility], [facility] CONSENT/REFUSAL FOR 2021-04-04 03:20:48 Doctor Unassigned, [facility] DI[facility] AND TREATMENT Name Medical Branch [facility] toe<sup>1</sup> Blood transfusion [facility] Plan of Care Planned Activity Planned Date Details Comments Source Future Scheduled 2022-01-26 INFLUENZA VACCINE (#1) [facility] [code = INFLUENZA Medical Ce nter VACCINE (#1)] Future Scheduled 2021-05-[address] [facility] 00:00:00 (12+) [code = Medical Center DEPRESSION SCREENING (12+)] Future Scheduled 2020-01-27 INFLUENZA VACCINE (#1) [facility] 00:00:00 [code = INFLUENZA Medical Ce nter VACCINE (#1)] Future Scheduled 2017-05-[address] [facility] 00:00:00 WELLNESS (YEAR 2 or Medical Center FIRST YEAR if no IPPE) [code = MEDICARE ANNUAL WELLNESS (YEAR 2 or FIRST YEAR if no IPPE)] Future Scheduled 2017-05-[address] [facility] 00:00:00 WELLNESS (YEAR 2 or Medical Center FIRST YEAR if no IPPE) [code = MEDICARE ANNUAL WELLNESS (YEAR 2 or FIRST YEAR if no IPPE)] Future Scheduled 2014 SHINGLES VACCINES ([address] [facility] 00:00:00 2) [code = SHINGLES Medical Center VACCINES (1 of 2)] Future Scheduled 1999-12-15 Lipid panel (procedure) [facility] 00:00:00 [code = 92326536] Medical Ce nter Future Scheduled 1999-12-15 Lipid panel (procedure) [facility] 00:00:00 [code = 52743933] Medical Ce nter Future Scheduled 1983-12-15 DTAP/TDAP/TD VACCINES [facility] 00:00:00 (1 - Tdap) [code = Medical C enter DTAP/TDAP/TD VACCINES (1 - Tdap)] Future Scheduled 1982 HEPATITIS C SCREENING [facility] 00:00:00 [code = HEPATITIS C Medical Center SCREENING] Future Scheduled 1965-06-16 COVID-19 VACCINE (#1) [facility] 00:00:00 [code = COVID-[address] VACCINE (#1)] Future Scheduled 1964 CT Colonography (combo) [facility] 00:00:00 [code = CT Colonography [facility] (combo)] Future Scheduled 1964 Screening for malignant [facility] 00:00:00 neoplasm of colon Medical Ce nter (procedure) [code = 969463127] Future Scheduled 1964 Screening for malignant [facility] 00:00:00 neoplasm of colon Medical Ce nter (procedure) [code = 699570604] Future Scheduled 1964 Screening for malignant [facility] 00:00:00 neoplasm of colon Medical Ce nter (procedure) [code = 048601582] Future Scheduled 1964 Screening for malignant [facility] 00:00:00 neoplasm of colon Medical Ce nter (procedure) [code = 406001276] Future Scheduled 1964 Sigmoidoscopy [code = [facility] S[facility]oscopy] Medical Cente r Future Scheduled 1964 Screening for malignant [facility] 00:00:00 neoplasm of colon Medical Ce nter (procedure) [code = 759923333] Encounters Start End Encounter Admission Attending Care Care Encounter Source Date/Time Date/Time Type Type Clinicians Facility Department ID 2021-03-02 Inpatient ER [facility] Orthopedics [id number] 02:26:50 [facility] 2021-04-03 2021-04-03 Emergency X [facility] ERT [id number] Univers 21:25:00 23:39:00 MAJO nayak [facility] 2021-04-03 2021-04-03 Emergency [facility] [id number] Univers 21:25:00 23:39:00 Majo CLAY [id number] [facility] 4.2.7.2.686 [facility] [id number] [place] [address] [place] 2021-04-03 2021-04-03 Orders Doctor SRAVANI [id number] Univers 00:00:00 00:00:00 Only Unassigned, BARBARA 350.1.13.10 ity of [place] [facility] 4.2.7.2.686 Ady as [id number] [address] 2020-01-02 2020-01-02 Emergency ER [facility] Emergency [id number] [facility] 06:16:00 06:16:00 2016-04-05 2016-04-06 [facility] [id number] Memoria 14:00:00 05:59:00 r Kai The [address] [place] [address] 2016-04-05 2016-04-06 Outpatient [facility] [id number] Memoria 14:00:00 05:59:00 r Kai [address] 2016-04-05 2016-04-05 Outpatient SAVI Pierce [facility] [id number] 08:00:00 23:59:[address] [place] [address] 2016-03-13 2016-03-14 Emergency [facility] [id number] Memoria 23:41:00 15:51:00 r Kai The [address] [place] [address] 2016-03-13 2016-03-14 [facility] [id number] Memoria 23:41:00 15:51:[address] r Kai [address] 2016-03-13 2016-03-14 Outpatient SAVI Diaz [facility] [id number] 18:41:00 10:51:00 Blanche Ruiz 2016-01-31 2016-02-18 Inpatient [facility] [id number] Memoria 18:47:00 20:15:00 r Kai The [address] [place] [address] 2016-01-31 2016-02-18 Inpatient [facility] [id number] Memoria 18:47:00 20:15:00 ramirez Quinn The [address] [place] [address] 2016-01-31 2016-02-18 Outpatient SAVI Pierce [facility] [id number] 13:47:00 15:15:[address] [place] [address] 2015-02-15 2015-02-16 OBS [facility] [id number] [facility]oria 17:38:00 21:20:00 Observatio r Kai The [address] [facility] 2015-02-15 2015-02-16 OBS [facility] [id number] Memoria 17:38:00 21:20:00 Observatio r Kai The [address] [facility] 2015-02-15 2015-02-16 Outpatient Brian YUMI [facility] [id number] 12:38:00 16:20:00 Juan Zhanna Hookso 2015-02-09 2015-02-09 EC [facility] [id number] Memoria 20:20:00 21:13:00 Emergency r Kai The 04 [facility] 2015-02-09 2015-02-09 EC [facility] [id number] [facility] 20:20:00 21:13:00 Emergency r Kai The 04 [facility] 2015-02-09 2015-02-09 Outpatient Az Warner [facility] [id number] 15:20:00 16:13:00 Sundar 04 2015-01-23 2015-01-23 EC [facility] [id number] [facility]oria 18:23:00 23:13:00 Emergency r Kai The 03 [facility] 2015-01-23 2015-01-23 EC [facility] [id number] Memoria 18:23:00 23:13:00 Emergency r Kai The 03 [facility] 2015-01-23 2015-01-23 Outpatient Larswilliam [facility] [id number] 13:23:00 18:13:00 Edstephen Cope 03 2013-10-31 2013-11-30 OP [facility] [id number] [facility]oria 13:00:00 04:59:00 Recurring r Kai The [address] [place] [address] 2013-10-31 2013-11-30 OP [facility] [id number] Memoria 13:00:00 04:59:00 Recurring r Kai The 00 [facility] 2013-10-31 2013-11-29 Outpatient Rosibel [id number] 08:00:00 23:59:00 Nabeel Mirza [id number] 5.0.101 01 Results Test Description Test Time Test Comments Results Result Comments Source BASIC METABOLIC PANEL (NA, K, CL, CO2, GLUCOSE, BUN, 2021-03 05:02:30 CREATININE, CA) Test Item Value Reference Range Interpretation Comme nts NA (test code = 7737344821) 135 mmol/L 135-145 K (test code = 8522125855) 4.0 mmol/L 3.5-5.0 CL (test code = 6498787502) 104 mmol/L 98-108 CO2 TOTAL (test code = 7294960685) 19 mmol/L 23-31 L AGAP (test code = 5837611421) 2-16 BUN (test code = 9197358665) 11 mg/dL 7-23 GLUCOSE (test code = 1683990995) 104 mg/dL 70-110 CREATININE (test code = 0.91 mg/dL 0.60-1.25 8984986776) CALCIUM (test code = 4733574343) 8.8 mg/dL 8.6-10.6 eGFR (test code = 9459749638) mL/min/1.73m2 DELLA (test code = DELLA) Association [...] tests). Lab Interpretation (test code = Abnormal 12008-3) [facility] WITH [id number] 04:48:31 Test Item Value Reference Range Interpretation Comments WBC (test code = See_Comment [Automated 6690-2) message] The sy stem which generated this [...] RDW-SD (test code = 48.4 fL 38.5-51.6 76740-9) RDW-CV (test code = 13.6 % 12.1-15.4 788-0) PLT (test code = See_Comment [Automated 777-3) message] The sy stem which generated this result transmitted reference range : 150 - 328 10*3/ ?L. The reference r lance was not used to interpret this result as normal/abnormal . MPV (test code = 9.4 fL 9.8-13.0 L 59831-3) NRBC/100 WBC (test See_Comment [Automat ed code = 0547499729) message] The system which generated this result transmitted reference range : 0.0 - 10.0 /100 WBCs. The refer ence range was not u sed to interpret th is result as normal/abnormal . NRBC x10^3 (test code <0.01 See_Comment [Auto mated = 0344229066) message] The s ystem which generated this result transmitted reference range : 10*3/?L. The reference range was not used to interpret this result as normal/abnormal . GRAN MAT (NEUT) % 40.0 % (test code = 770-8) IMM GRAN % (test code 0.70 % = 3077184169) LYMPH % (test code = 42.0 % 736-9) MONO % (test code = 9.4 % 5905-5) EOS % (test code = 7.0 % 713-8) BASO % (test code = 0.9 % 706-2) GRAN MAT x10^3(ANC) 3.99 10*3/uL 1.99-6.95 (test code = 6572172986) IMM GRAN x10^3 (test 0.07 10*3/uL 0.00-0.06 H code = 5262185187) LYMPH x10^3 (test code 4.19 10*3/uL 1.09-3.23 H = 731-0) MONO x10^3 (test code 0.94 10*3/uL 0.36-1.02 = 742-7) EOS x10^3 (test code = 0.70 10*3/uL 0.06-0.53 H 711-2) BASO x10^3 (test code 0.09 10*3/uL 0.01-0.09 = 704-7) Lab Interpretation Abnormal (test code = 35767-7) [facility], WITHOUT CONTRAST, [...] donor sites. Signed: Delisa Bustilloort Verified Date/Time: 020 15:45:14 Reading Location: [facility] Radiology Reading Room Electronically signed by: DELISA BUSTILLO M.D.on 01/02/2020 03:45 PMSARS-COV2/RT-PCR ([facility]) 2020-01-02 13:11:00 Test Item Value Reference Range Interpretation Comments SARS-COV2/RT-PCR (test Negative Not Detected, Negative, code = 0235377) See external report for linked test SARS-COV-2 PERFORMING LAB [facility] (test code = 6917268) Negative result for this test determines that [...] of the Act.Fact Sheet for Healthcare Prov iders:https://www.Funding Options/sites/default/files/product/documents/Fact_Sheet_HC _Fxnfoorkq_Ntqs_KMPW-GqE-9.pdfFact Sheet for Healthcare Patients:https://www.Funding Options/sites/default/files/product/docume nts/Twfu_Bikuo_Pdbdyeiw_Ziut_TCSV-HgB-0.pdfPerforming Laboratory:[facility].[place], [place] [address]NIV, SHOULDER, COMPLETE (MIN 2 VIEWS), [id number] 10:34:00Reason for exam:->ARM INJURYShould this be performed at the bedside?->YesFINAL REPORT RAD, SHOULDER, COMPLETE (MIN 2 VIEWS), LEFT INDICATION: ARM INJURYCOMPARISON: 2 hours prior TECHNIQUE: Single frontal view of the left shoulder. IMPRESSION: Redemonstration of chronic changes in the anteriorly displaced humeral head. Glenoid rim appears preserved. Acromioclavicular joint remains intact. Signed: JR Moreira Robert MDReport Verified Date/Time: 01/02/2020 10:34:05 Reading Location: [facility] Radiology Reading Room [id number] 09:03:00 Test Item Value Reference Range Interpretation [...] S NOT APPLICABLE FOR DIALYSIS PATIEN TS. Death Clearance Coordinator ID - EDASICBC W/PLT COUNT & AUTO [id number] 08:30:00 Test Item Value Reference Range Interpretation [...] 2801) RAD, SHOULDER, COMPLETE (MIN 2 VIEWS), [id number] 07:45:00Reason for exam:- >ARM INJURYFINAL REPORT RAD, [...] MDReport Verified Date/Time: 01/02/2020 07:45:57 Reading Location: [facility] Radiology Reading Room BLOOD [id number] 02:00:00 Test Item Value Reference Range Interpretation Comments CULTURE (BEAKER) (test No growth in 5 days code = 1095) BLOOD [id number] 20:01:00 Test Item Value Reference Range Interpretation Comments CULTURE (BEAKER) (test No growth in 5 days code = 1095) EEG AWAKE AND [id number] 14:49:00Reason for exam:->seizuresDate(s) of EE10/14/18DATE OF REPORT: 10/14/18ACC: [id number] Number: [id number] time: 13:36Stop time: 13:57ICD-10: R56.9 Unspecified ConvulsionsCPT Code: 57957 EEG: awake and drowsy <40 min HISTORY: [...] Zabala MDNeurophysiology Fellow Anjali Floyd MDNeurophysiology/Epilepsy Attending [facility] METABOLIC [id number] 07:41:00 Test Item Value Reference Range Interpretation [...] PATIEN TS. CBC W/PLT COUNT & AUTO [id number] 05:30:00 Test Item Value Reference Range Interpretation [...] (test code = 2801) VITAMIN B12 AND [id number] 19:46:00 Test Item Value Reference Range Interpretation Comments VITAMIN B12 (BEAKER) (test code = 683 pg/mL 213-816 774) FOLATE (BEAKER) (test code = 362) > ng/mL >=7.0 [id number] 17:59:00 Test Item Value Reference Range Interpretation Comments PHOSPHORUS (BEAKER) (test code = 4.0 mg/dL 2.3-4.7 604) [id number] 17:59:00 Test Item Value Reference Range Interpretation Comments MAGNESIUM (BEAKER) (test code = 2.5 mg/dL 1.6-2.6 627) CT, BRAIN, WITHOUT [id number] 16:58:00FINAL REPORT CT head without contrast. Reason [...] MDReport Verified Date/Time: 10/12/2018 16:58:56 Reading Location: [address] Neuro Reading Room URINALYSIS W/ [id number] 16:25:00 Test Item Value Reference Range Interpretation [...] 516) SOURCE(BEAKER) (test code = Urine, Voided 2802) BLOOD [id number] 10:00:00 Test Item Value Reference Range Interpretation Comments CULTURE (BEAKER) (test No growth in 5 days code = 1095) STOOL CULTURE + SHIGA [id number] 09:59:00 Test Item Value Reference Range Interpretation Comments CULTURE (BEAKER) No Salmonella, Shigella (test code = 1095) or Campylobacter isolated STOOL PATH [id number] 09:01:00 Test Item Value Reference Range Interpretation Comments PATHOGEN EXAM CHARGED (BEAKER) (test Done code = 2381) BASIC METABOLIC [id number] 06:59:00 Test Item Value Reference Range Interpretation [...] APPLICABLE FOR DIALYSIS PATIEN TS. SHIGA TOXIN [id number] 15:48:00 Test Item Value Reference Range Interpretation Comments SHIGA TOXIN 1 (BEAKER) (test Not detected Not detected code = 2177) SHIGA TOXIN 2 (BEAKER) (test Not detected Not detected code = 2179) CLOSTRIDIUM DIFFICILE TOXIN [id number] 15:13:00 Test Item Value Reference Range Interpretation [...] a positive result is not recommended.BLOOD GAS, [id number] 11:03:00 Test Item Value Reference Range Interpretation [...] code = 1819) 21.0 % BASIC METABOLIC [id number] 05:14:00 Test Item Value Reference Range Interpretation [...] NOT APPLICABLE FOR DIALYSIS PATIEN TS. PTH, [id number] 05:03:00 Test Item Value Reference Range Interpretation Comments PARATHYROID HORMONE INTACT 41.8 pg/mL 8.5-72.5 (BEAKER) (test code = 577) BASIC METABOLIC [id number] 07:10:00 Test Item Value Reference Range Interpretation [...] APPLICABLE FOR DIALYSIS PATIEN TS. SODIUM, RANDOM [id number] 06:58:00 Test Item Value Reference Range Interpretation Comments SODIUM URINE (BEAKER) (test code = 65 meq/L 243) Reference Range: No NormalsPROTHROMBIN [id number] 06:47:00 Test Item Value Reference Range Interpretation Comments PROTIME (BEAKER) (test code = 14.5 seconds 11.7-14.7 759) INR (BEAKER) (test code = 370) 1.1 <=5.9 RECOMMENDED COUMADIN/WARFARIN INR THERAPY RANGESSTANDARD DOSE: 2.0 - 3.0 Includes: PROPHYLAXIS for venous thrombosis, systemic embolization; TREATMENT for venous thrombosis and/or pulmonary embolus.HIGH RISK: Target INR is 2.5-3.5 for patients with mechanical heart valves.RAPID DRUG SCREEN, [id number] 15:43:00 Test Item Value Reference Range Interpretation [...] situations. Chain of custody not maintained. Some zkyb-jfa-osvusob medications, as well as adulterants, may cause inaccurate results. Clinical correlation should be applied. A more comprehensive drug screen or confirmation of a detected drug may be performed upon request.URINE [id number] 14:33:00 Test Item Value Reference Range Interpretation Comments CULTURE (BEAKER) (test code = 1095) No growth BASIC METABOLIC [id number] 08:09:00 Test Item Value Reference Range Interpretation [...] PATIEN TS. CBC W/PLT COUNT & AUTO [id number] 06:38:00 Test Item Value Reference Range Interpretation [...] (BEAKER) (test code = 2801) U/S, RENAL, [id number] 22:34:00Reason for exam:->acute kidney injury FINAL REPORT [...] no evidence of hydronephrosis. Signed: Liana Jack MDReport Verified Date/Time: 04/17/2017 22:34:25 Reading Location: [address] Consult Reading Room MR, BRAIN, WITHOUT [id number] 19:18:00Reason for exam:->Stroke evaluationFINAL REPORT MRI Brain [...] possible seizure foci. Signed: Wicho Nelson MDReport Verified Date/Time: 04/17/2017 19:18:34 Reading Location: [facility] Radiology Reading Room EEG MONITORING WITH VIDEO RECORDING EACH 24 [id number] 18:01:00DATE OF TEST: 04/17/2017 DATE OF REPORT 04/17/2017 ACC: [id number] EE Start time: 16:42 Stoptime: 18:44 ICD-10: R56.9 CPT Code: 38075 HISTORY: 51 y/o woman with history of [...] its interpretation. Gina Davis MD Neurophysiology Attending URINALYSIS W/ MICROSCOPIC [...] 1583) SOURCE(BEAKER) (test code = Urine, Cooper 6427) EOSINOPHIL SMEAR, [id number] 11:56:00 Test Item Value Reference Range Interpretation Comments EOSINOPHIL SMEAR, URINE (BEAKER) No EOS seen No EOS seen (test code = 1851) CREATININE, RANDOM [id number] 11:24:00 Test Item Value Reference Range Interpretation Comments CREATININE URINE (BEAKER) (test 69.7 mg/dL code = 375) Reference Range: No NormalsSODIUM, RANDOM [id number] 11:24:00 Test Item Value Reference Range Interpretation Comments SODIUM URINE (BEAKER) (test code = 58 meq/L 243) Reference Range: No NormalsUREA NITROGEN, RANDOM [id number] 11:24:00 Test Item Value Reference Range Interpretation Comments UREA NITROGEN URINE (BEAKER) (test 172 mg/dL code = 538) Reference Range: No NormalsCREATINE KINASE (CK)2017-04-17 11:06:00 Test Item Value Reference Range Interpretation Comments CREATINE KINASE TOTAL (BEAKER) (test 136 U/L 29-200 code = 380) BASIC METABOLIC [id number] 04:53:00 Test Item Value Reference Range Interpretation [...] PATIEN TS. CBC W/PLT COUNT & AUTO [id number] 04:19:00 Test Item Value Reference Range Interpretation [...] EEG MONITORING WITH VIDEO RECORDING EACH 24 [id number] 17:57:00DATE OF TEST: 04/16/2017DATE OF REPORT 04/16/2017 ACC: [id number]: [id number] time: 08:42 Stop time: 16:42ICD-10: R56.9CPT Code: 14569VWMNTVT: 51 y/o woman with history of epilepsy [...] activity CLINICAL CORRELATION: The diffuse slowing in thisrecord is consistent with a mild to moderate [...] report.Vicky Hassan MDEpilepsy Attending EEG AWAKE/ASLEEP AND [id number] 13:27:00Reason for exam:->status epilepticusDATE OF TEST: 04/16/2017DATE OF REPORT 04/16/2017 ACC: [id number] EEStart time: 08:21 Stop time: 08:42ICD-10: R56.9CPT Code: 57564NWPLZZR: 51 y/o woman with history of epilepsy [...] this report.Vicky Hassan MDEpilepsy Attending HEPATIC FUNCTION [id number] 12:59:00 Test Item Value Reference Range Interpretation [...] 347) hemolyzed RAD, CHEST, 1 VIEW, NON [id number] 09:16:00Reason for exam:- >intubatedShould this be performed [...] Doe Verified Date/Time: 04/16/2017 09:16:32 Reading Location: [facility] Radiology Reading Room VITAMIN [id number] 07:31:00 Test Item Value Reference Range Interpretation Comments VITAMIN B12 (BEAKER) (test code = 450 pg/mL 213-816 774) FOLATE, [id number] 07:31:00 Test Item Value Reference Range Interpretation Comments FOLATE (BEAKER) (test code = 362) 8.0 ng/mL >=7.0 URINALYSIS W/ [id number] 07:09:00 Test Item Value Reference Range Interpretation [...] = 514) SOURCE(BEAKER) (test code = 2795) [id number] 05:59:00 Test Item Value Reference Range Interpretation Comments MAGNESIUM (BEAKER) 3.0 mg/dL 1.6-2.6 H Specimen moderately (test code = 627) hemolyzed [id number] 05:59:00 Test Item Value Reference Range Interpretation Comments PHOSPHORUS (BEAKER) 3.0 mg/dL 2.3-4.7 Specimen moderately (test code = 604) hemolyzed BASIC METABOLIC [id number] 05:59:00 Test Item Value Reference Range Interpretation [...] NOT APPLICABLE FOR DIALYSIS PATIEN TS. PROTHROMBIN TIME/[id number] 05:33:00 Test Item Value Reference Range Interpretation Comments PROTIME (BEAKER) (test code = 15.7 seconds 11.7-14.7 H 759) INR (BEAKER) (test code = 370) 1.3 <=5.9 RECOMMENDED COUMADIN/WARFARIN INR THERAPY RANGESSTANDARD DOSE: 2.0 - 3.0 Includes: PROPHYLAXIS for venous thrombosis, systemic embolization; TREATMENT for venous thrombosis and/or pulmonary embolus.HIGH RISK: Target INR is 2.5-3.5 for patients with mechanical heart valves.BLOOD GAS, [id number] 05:31:00 Test Item Value Reference Range Interpretation [...] 60.0 % CBC W/PLT COUNT & AUTO [id number] 05:08:00 Test Item Value Reference Range Interpretation [...] (BEAKER) (test code = 2801) BLOOD BANK [id number] 17:22:00 Test Item Value Reference Range Interpretation Comments RBC product (test code Product available = RBC product) (04/04/16 11:22 AM) [facility] BANK [id number] 17:22:00 Test Item Value Reference Range Interpretation Comments RBC product (test code Product available = RBC product) (04/04/16 11:22 AM) [facility] BANK [id number] 17:20:00 Test Item Value Reference Range Interpretation Comments ABO/Rh (test code = ABO/Rh) [facility] [id number] 17:20:00 Test Item Value Reference Range Interpretation Comments Antibody Scrn (test Negative (04/04/16 code = Antibody Scrn) 11:20 AM) [facility] [id number] 17:20:00 Test Item Value Reference Range Interpretation Comments ABO/Rh (test code = ABO/Rh) B [facility] [id number] 17:20:00 Test Item Value Reference Range Interpretation Comments Antibody Scrn (test Negative (04/04/16 code = Antibody Scrn) 11:20 AM) [facility] AND [id number] 07:08:00 Test Item Value Reference Range Interpretation Comments UA Urobilinogen (test code = UA <=1.0 mg/dL 0.1-1.0 Urobilinogen) [facility] AND [id number] 07:08:00 Test Item Value Reference Range Interpretation Comments UA RBC (test code = 1 See_Comment [Automa roseann message] The UA RBC) system which ge nerated this result transmit roseann reference range : <=2. The reference range was not used to interpr et this result as reggie l/abnormal. [facility] [id number] 07:08:00 Test Item Value Reference Range Interpretation Comments UA WBC (test code = 3 See_Comment [Automa roseann message] The UA WBC) system which ge nerated this result transmit roseann reference range : <=5. The reference range was not used to interpr et this result as reggie l/abnormal. [facility] AND [id number] 07:08:00 Test Item Value Reference Range Interpretation Comments UA Sq Epi (test code = UA Sq Epi) Few /LPF [facility] AND [id number] 07:08:00 Test Item Value Reference Range Interpretation Comments UA Mucus (test code = UA Mucus) Few /LPF [facility] AND [id number] 07:08:00 Test Item Value Reference Range Interpretation Comments UA Leuk Est (test Negative (03/14/16 2:08 code = UA Leuk Est) AM) [facility] AND [id number] 07:08:00 Test Item Value Reference Range Interpretation Comments UA Protein (test code = UA Negative mg/dL Protein) [facility] AND [id number] 07:08:00 Test Item Value Reference Range Interpretation Comments UA pH (test code = UA pH) 5.0 5.0-8.0 [facility] AND [id number] 07:08:00 Test Item Value Reference Range Interpretation Comments UA Spec Grav (test code = UA Spec Grav) 1.009 [facility] AND [id number] 07:08:00 Test Item Value Reference Range Interpretation Comments UA Turbidity (test code = Clear (03/14/16 2:08 UA Turbidity) AM) [facility] AND [id number] 07:08:00 Test Item Value Reference Range Interpretation Comments UA Ketones (test code = UA Negative mg/dL Ketones) [facility] AND [id number] 07:08:00 Test Item Value Reference Range Interpretation Comments UA Glucose (test code = UA Negative mg/dL Glucose) [facility] AND [id number] 07:08:00 Test Item Value Reference Range Interpretation Comments UA Color (test code = Yellow *NA*(03/14/16 UA Color) 2:08 AM) [facility] AND [id number] 07:08:00 Test Item Value Reference Range Interpretation Comments UA Nitrite (test code Negative (03/14/16 2:08 = UA Nitrite) AM) [facility] AND [id number] 07:08:00 Test Item Value Reference Range Interpretation Comments UA Blood (test code = Negative (03/14/16 2:08 UA Blood) AM) [facility] AND [id number] 07:08:00 Test Item Value Reference Range Interpretation Comments UA Bili (test code = Negative *NA*(03/14/16 UA Bili) 2:08 AM) [facility] AND [id number] 07:08:00 Test Item Value Reference Range Interpretation Comments UA Urobilinogen (test code = UA <=1.0 mg/dL 0.1-1.0 Urobilinogen) [facility] AND [id number] 07:08:00 Test Item Value Reference Range Interpretation Comments UA RBC (test code = 1 See_Comment [Automa roseann message] The UA RBC) system which ge nerated this result transmit roseann reference range : <=2. The reference range was not used to interpr et this result as reggie l/abnormal. [facility] AND [id number] 07:08:00 Test Item Value Reference Range Interpretation Comments UA WBC (test code = 3 See_Comment [Automa roseann message] The UA WBC) system which ge nerated this result transmit roseann reference range : <=5. The reference range was not used to interpr et this result as reggie l/abnormal. [facility] AND [id number] 07:08:00 Test Item Value Reference Range Interpretation Comments UA Sq Epi (test code = UA Sq Epi) Few /LPF [facility] AND [id number] 07:08:00 Test Item Value Reference Range Interpretation Comments UA Mucus (test code = UA Mucus) Few /LPF [facility] AND [id number] 07:08:00 Test Item Value Reference Range Interpretation Comments UA Leuk Est (test Negative (03/14/16 2:08 code = UA Leuk Est) AM) [facility] AND [id number] 07:08:00 Test Item Value Reference Range Interpretation Comments UA Protein (test code = UA Negative mg/dL Protein) [facility] AND [id number] 07:08:00 Test Item Value Reference Range Interpretation Comments UA pH (test code = UA pH) 5.0 5.0-8.0 [facility] AND [id number] 07:08:00 Test Item Value Reference Range Interpretation Comments UA Spec Grav (test code = UA Spec Grav) 1.009 [facility] AND [id number] 07:08:00 Test Item Value Reference Range Interpretation Comments UA Turbidity (test code = Clear (03/14/16 2:08 UA Turbidity) AM) [facility] AND [id number] 07:08:00 Test Item Value Reference Range Interpretation Comments UA Ketones (test code = UA Negative mg/dL Ketones) [facility] AND [id number] 07:08:00 Test Item Value Reference Range Interpretation Comments UA Glucose (test code = UA Negative mg/dL Glucose) [facility] AND [id number] 07:08:00 Test Item Value Reference Range Interpretation Comments UA Color (test code = Yellow *NA*(03/14/16 UA Color) 2:08 AM) [facility] AND [id number] 07:08:00 Test Item Value Reference Range Interpretation Comments UA Nitrite (test code Negative (03/14/16 2:08 = UA Nitrite) AM) [facility] AND [id number] 07:08:00 Test Item Value Reference Range Interpretation Comments UA Blood (test code = Negative (03/14/16 2:08 UA Blood) AM) [facility] AND [id number] 07:08:00 Test Item Value Reference Range Interpretation Comments UA Bili (test code = Negative *NA*(03/14/16 UA Bili) 2:08 AM) [facility] [id number] 05:40:00 Test Item Value Reference Range Interpretation Comments Lactic Acid Lvl (test code = Lactic 0.8 0.5-2.2 Acid Lvl) [facility]2016-10-18 05:40:00 Test Item Value Reference Range Interpretation Comments Lactic Acid Lvl (test code = Lactic 0.8 0.5-2.2 Acid Lvl) [facility] [id number] 05:20:00 Test Item Value Reference Range Interpretation Comments Procalcitonin Lvl <0.05 ng/mL See_Comment [Automate d message] (test code = The system whic h Procalcitonin Lvl) generated this result transmit roseann reference range : <=0.10. The reference range was not used to interpret this result as normal/abnormal . [facility] [id number] 05:20:00 Test Item Value Reference Range Interpretation Comments Procalcitonin Lvl <0.05 ng/mL See_Comment [Automate d message] (test code = The system whic h Procalcitonin Lvl) generated this result transmit roseann reference range : <=0.10. The reference range was not used to interpret this result as normal/abnormal . [facility] HospitalSocialTo[facility], [facility] [id number] 02:07:00 Test Item Value Reference Range Interpretation Comments Antibody Scrn (test Negative (03/13/16 code = Antibody Scrn) 9:07 PM) [facility] [employer] [facility] [id number] 02:07:00 Test Item Value Reference Range Interpretation Comments ABO/Rh (test code = ABO/Rh) B POS [facility] [id number] 02:07:00 Test Item Value Reference Range Interpretation Comments eGFR (test code = eGFR) 43 [facility] [id number] 02:07:00 Test Item Value Reference Range Interpretation Comments BUN (test code = BUN) 21 7-22 [facility] [id number] 02:07:00 Test Item Value Reference Range Interpretation Comments Creatinine Lvl (test code = Creatinine 1.79 0.50-1.40 Lvl) [facility] [id number] 02:07:00 Test Item Value Reference Range Interpretation Comments Alk Phos (test code = Alk Phos) 95 39-136 [facility]2016-10-18 02:07:00 Test Item Value Reference Range Interpretation Comments Bili Total (test code = Bili Total) 0.3 0.2-1.3 [facility]2016-10-18 02:07:00 Test Item Value Reference Range Interpretation Comments AST (test code = AST) 39 See_Comment [Auto mated message] The system which ge nerated this result transmit roseann reference range : <=37. The reference range was not used to interpr et this result as reggie l/abnormal. [facility]2016-10-18 02:07:00 Test Item Value Reference Range Interpretation Comments ALT (test code = ALT) 59 See_Comment [Auto mated message] The system which ge nerated this result transmit roseann reference range : <=65. The reference range was not used to interpr et this result as reggie l/abnormal. [place] [id number] 02:07:00 Test Item Value Reference Range Interpretation Comments Sodium Lvl (test code = Sodium Lvl) 139 135-145 [facility]2016-10-18 02:07:00 Test Item Value Reference Range Interpretation Comments Total Protein (test code = Total 7.8 6.4-8.4 Protein) [facility]2016-10-18 02:07:00 Test Item Value Reference Range Interpretation Comments Albumin Lvl (test code = Albumin Lvl) 2.5 3.5-5.0 [facility]2016-10-18 02:07:00 Test Item Value Reference Range Interpretation Comments Glucose Lvl (test code = Glucose Lvl) 120 70-99 [facility]2016-10-18 02:07:00 Test Item Value Reference Range Interpretation Comments Chloride Lvl (test code = Chloride Lvl) 106 95-109 [facility]2016-10-18 02:07:00 Test Item Value Reference Range Interpretation Comments CO2 (test code = CO2) 21 24-32 [facility]2016-10-18 02:07:00 Test Item Value Reference Range Interpretation Comments Calcium Lvl (test code = Calcium Lvl) 10.1 8.5-10.5 [facility]2016-10-18 02:07:00 Test Item Value Reference Range Interpretation Comments Potassium Lvl (test code = Potassium 3.3 3.5-5.1 Lvl) [facility]2016-10-18 02:07:00 Test Item Value Reference Range Interpretation Comments A/G Ratio (test code = A/G Ratio) 0.5 0.7-1.6 [facility]2016-10-18 02:07:00 Test Item Value Reference Range Interpretation Comments Globulin (test code = Globulin) 5.3 2.7-4.2 [facility]2016-10-18 02:07:00 Test Item Value Reference Range Interpretation Comments B/C Ratio (test code = B/C Ratio) 12 6-25 [facility]2016-10-18 02:07:00 Test Item Value Reference Range Interpretation Comments AGAP (test code = AGAP) 15.3 10.0-20.0 [id number] 02:07:00 Test Item Value Reference Range Interpretation Comments MPV (test code = MPV) 7.4 7.4-10.4 [facility] H[id number] 02:07:00 Test Item Value Reference Range Interpretation Comments WBC (test code = WBC) 7.3 3.7-10.4 [facility] Hos[id number] 02:07:00 Test Item Value Reference Range Interpretation Comments MCV (test code = MCV) 88.5 80.0-94.0 [facility] [id number] 02:07:00 Test Item Value Reference Range Interpretation Comments RBC (test code = RBC) 3.00 4.70-6.10 [facility] Ho[id number] 02:07:00 Test Item Value Reference Range Interpretation Comments Hct (test code = Hct) 26.5 42.0-54.0 [facility] Hos[id number] 02:07:00 Test Item Value Reference Range Interpretation Comments Hgb (test code = Hgb) 8.8 14.0-18.0 [facility] HospitalQythkanUWARMXCIJM7676-96-14 02:07:00 Test Item Value Reference Range Interpretation Comments MCHC (test code = MCHC) 33.1 32.0-36.0 [facility] HospitalWihbemgXJUQBZCISZ2705-11-45 02:07:00 Test Item Value Reference Range Interpretation Comments MCH (test code = MCH) 29.3 pg 27.0-31.0 [facility] Hos[id number] 02:07:00 Test Item Value Reference Range Interpretation Comments Platelet (test code = Platelet) 241 133-450 [facility] HospitalKwtgvjhMINOSTKYQV9154-64-69 02:07:00 Test Item Value Reference Range Interpretation Comments RDW (test code = RDW) 15.5 11.5-14.5 [facility] HospitalHwmkllkVEILWROECC8006-23-71 02:07:00 Test Item Value Reference Range Interpretation Comments Basophils # (test code 0.1 See_Comment [Aut omated message] The = Basophils #) system which generated this result tra nsmitted reference range : <=0.2. The reference r lance was not used to int erpret this result as normal/abnormal . [facility] HospitalGyvcfxmTZTANLCQJU3420-82-04 02:07:00 Test Item Value Reference Range Interpretation Comments Lymphocytes (test code = Lymphocytes) 14.3 20.0-40.0 [facility] HospitalVqnjtgtFPOIMUZAOD1841-88-15 02:07:00 Test Item Value Reference Range Interpretation Comments Eosinophils (test code = 1.9 See_Comment [A utomated message] The Eosinophils) system which ge nerated this result tra nsmitted reference range : <=4.0. The reference r lance was not used to int erpret this result as normal/abnormal . [facility] HospitalCbvawreSGISZMQYYG9470-06-43 02:07:00 Test Item Value Reference Range Interpretation Comments Segs (test code = Segs) 77.1 45.0-75.0 [facility] HospitalIwdeqmoLBKNQDTHMU9554-59-41 02:07:00 Test Item Value Reference Range Interpretation Comments Monocytes (test code = Monocytes) 5.3 2.0-12.0 [facility] HospitalHtskxdtKIVBRMIFIW5819-02-10 02:07:00 Test Item Value Reference Range Interpretation Comments Basophils (test code = 1.4 See_Comment [Aut omated message] The Basophils) system which ge nerated this result tra nsmitted reference range : <=1.0. The reference r lance was not used to int erpret this result as normal/abnormal . [facility] HospitalZfmterdILVBLUCRYK0286-71-95 02:07:00 Test Item Value Reference Range Interpretation Comments Segs-Bands # (test code = Segs-Bands #) 5.6 1.5-8.1 [facility] HospitalUjomngxAVSNOUHCJU6226-87-29 02:07:00 Test Item Value Reference Range Interpretation Comments Lymphocytes # (test code = Lymphocytes 1.0 1.0-5.5 #) [facility] HospitalMuwtfioJQJUEUYDEX1500-31-00 02:07:00 Test Item Value Reference Range Interpretation Comments Monocytes # (test code 0.4 See_Comment [Aut omated message] The = Monocytes #) system which generated this result tra nsmitted reference range : <=0.8. The reference r lance was not used to int erpret this result as normal/abnormal . [facility] HospitalJaatbhrIHOQJVBYXU4600-44-41 02:07:00 Test Item Value Reference Range Interpretation Comments Eosinophils # (test code 0.1 See_Comment [A utomated message] The = Eosinophils #) system [employer] generated this result tra nsmitted reference range : <=0.5. The reference r lance was not used to int erpret this result as normal/abnormal . [facility] HospitalFhengvzOTWWQTKCTM7262-70-94 02:07:00 Test Item Value Reference Range Interpretation Comments Lymphocytes # (test code = Lymphocytes 1.0 1.0-5.5 #) [facility] HospitalUbcwlzyPPVXWFPPVL5838-97-68 02:07:00 Test Item Value Reference Range Interpretation Comments Monocytes # (test code 0.4 See_Comment [Aut omated message] The = Monocytes #) system which generated this result tra nsmitted reference range : <=0.8. The reference r lance was not used to int erpret this result as normal/abnormal . [facility] HospitalKhsjkpkLRHCSSPWAZ1713-16-64 02:07:00 Test Item Value Reference Range Interpretation Comments Eosinophils # (test code 0.1 See_Comment [A utomated message] The = Eosinophils #) system [employer] generated this result tra nsmitted reference range : <=0.5. The reference r lance was not used to int erpret this result as normal/abnormal . [facility] [id number] 02:07:00 Test Item Value Reference Range Interpretation Comments Antibody Scrn (test Negative (03/13/16 code = Antibody Scrn) 9:07 PM) [facility] [id number] 02:07:00 Test Item Value Reference Range Interpretation Comments ABO/Rh (test code = ABO/Rh) B POS [facility]2016-10-18 02:07:00 Test Item Value Reference Range Interpretation Comments eGFR (test code = eGFR) 43 [facility]2016-10-18 02:07:00 Test Item Value Reference Range Interpretation Comments BUN (test code = BUN) 21 7-22 [facility]2016-10-18 02:07:00 Test Item Value Reference Range Interpretation Comments Creatinine Lvl (test code = Creatinine 1.79 0.50-1.40 Lvl) [facility]2016-10-18 02:07:00 Test Item Value Reference Range Interpretation Comments Alk Phos (test code = Alk Phos) 95 39-136 [facility]2016-10-18 02:07:00 Test Item Value Reference Range Interpretation Comments Bili Total (test code = Bili Total) 0.3 0.2-1.3 [facility]2016-10-18 02:07:00 Test Item Value Reference Range Interpretation Comments AST (test code = AST) 39 See_Comment [Auto mated message] The system which ge nerated this result transmit roseann reference range : <=37. The reference range was not used to interpr et this result as reggie l/abnormal. [facility]2016-10-18 02:07:00 Test Item Value Reference Range Interpretation Comments ALT (test code = ALT) 59 See_Comment [Auto mated message] The system which ge nerated this result transmit roseann reference range : <=65. The reference range was not used to interpr et this result as reggie l/abnormal. [facility]2016-10-18 02:07:00 Test Item Value Reference Range Interpretation Comments Sodium Lvl (test code = Sodium Lvl) 139 135-145 [facility]2016-10-18 02:07:00 Test Item Value Reference Range Interpretation Comments Total Protein (test code = Total 7.8 6.4-8.4 Protein) [facility]2016-10-18 02:07:00 Test Item Value Reference Range Interpretation Comments Albumin Lvl (test code = Albumin Lvl) 2.5 3.5-5.0 [facility]2016-10-18 02:07:00 Test Item Value Reference Range Interpretation Comments Glucose Lvl (test code = Glucose Lvl) 120 70-99 [facility]2016-10-18 02:07:00 Test Item Value Reference Range Interpretation Comments Chloride Lvl (test code = Chloride Lvl) 106 95-109 [facility]2016-10-18 02:07:00 Test Item Value Reference Range Interpretation Comments CO2 (test code = CO2) 21 24-32 [facility]2016-10-18 02:07:00 Test Item Value Reference Range Interpretation Comments Calcium Lvl (test code = Calcium Lvl) 10.1 8.5-10.5 [facility]2016-10-18 02:07:00 Test Item Value Reference Range Interpretation Comments Potassium Lvl (test code = Potassium 3.3 3.5-5.1 Lvl) [facility]2016-10-18 02:07:00 Test Item Value Reference Range Interpretation Comments A/G Ratio (test code = A/G Ratio) 0.5 0.7-1.6 [facility]2016-10-18 02:07:00 Test Item Value Reference Range Interpretation Comments Globulin (test code = Globulin) 5.3 2.7-4.2 [facility]2016-10-18 02:07:00 Test Item Value Reference Range Interpretation Comments B/C Ratio (test code = B/C Ratio) 12 6-25 [facility]2016-10-18 02:07:00 Test Item Value Reference Range Interpretation Comments AGAP (test code = AGAP) 15.3 10.0-20.0 [facility] HospitalKsyaeuzGXSMAMPMZG0679-69-41 02:07:00 Test Item Value Reference Range Interpretation Comments MPV (test code = MPV) 7.4 7.4-10.4 [facility] HospitalVoigergJPVTAOMPQX5815-02-96 02:07:00 Test Item Value Reference Range Interpretation Comments WBC (test code = WBC) 7.3 3.7-10.4 [facility] HospitalPbuthogOWYNJQEXDB0955-97-53 02:07:00 Test Item Value Reference Range Interpretation Comments MCV (test code = MCV) 88.5 80.0-94.0 [facility] HospitalBlnvvpiFNVYJQCPFQ4250-64-98 02:07:00 Test Item Value Reference Range Interpretation Comments RBC (test code = RBC) 3.00 4.70-6.10 [facility] HospitalYnwvnesAZFHJDHPSU7113-12-63 02:07:00 Test Item Value Reference Range Interpretation Comments Hct (test code = Hct) 26.5 42.0-54.0 [facility] HospitalMgzupnjTKGVINRMGH4586-86-16 02:07:00 Test Item Value Reference Range Interpretation Comments Hgb (test code = Hgb) 8.8 14.0-18.0 [facility] HospitalShyuwjhFSEZQGICOG2797-21-45 02:07:00 Test Item Value Reference Range Interpretation Comments MCHC (test code = MCHC) 33.1 32.0-36.0 [facility]oxqSGLLSHPLCG5912[facility] 02:07:00 Test Item Value Reference Range Interpretation Comments MCH (test code = MCH) 29.3 pg 27.0-31.0 [facility]OabskwvTIPPGHMDBS6905-81-92 02:07:00 Test Item Value Reference Range Interpretation Comments Platelet (test code = Platelet) 241 133-450 [facility]JbwnhcxVENGGBGCPB5766-21-55 02:07:00 Test Item Value Reference Range Interpretation Comments RDW (test code = RDW) 15.5 11.5-14.5 [facility]DmwabkxCDRGQLIBNQ9885-84-86 02:07:00 Test Item Value Reference Range Interpretation Comments Basophils # (test code 0.1 See_Comment [Aut omated message] The = Basophils #) system which generated this result tra nsmitted reference range : <=0.2. The reference r lance was not used to int erpret this result as normal/abnormal . [facility] HospitalUjgoafeFUAXLAYWMD9695-32-94 02:07:00 Test Item Value Reference Range Interpretation Comments Lymphocytes (test code = Lymphocytes) 14.3 20.0-40.0 [facility]IcvckfrXNPZHZXHIO2484-60-97 02:07:00 Test Item Value Reference Range Interpretation Comments Eosinophils (test code = 1.9 See_Comment [A utomated message] The Eosinophils) system which ge nerated this result tra nsmitted reference range : <=4.0. The reference r lance was not used to int erpret this result as normal/abnormal . [facility] HospitalKmeneqwZAYXLUUEEE9787-32-16 02:07:00 Test Item Value Reference Range Interpretation Comments Segs (test code = Segs) 77.1 45.0-75.0 [facility] HospitalTmwulfhZMMZRKQTQK3688-96-73 02:07:00 Test Item Value Reference Range Interpretation Comments Monocytes (test code = Monocytes) 5.3 2.0-12.0 [facility] HospitalTslwxajJTRSNRKZKL9491-59-42 02:07:00 Test Item Value Reference Range Interpretation Comments Basophils (test code = 1.4 See_Comment [Aut omated message] The Basophils) system which ge nerated this result tra nsmitted reference range : <=1.0. The reference r lance was not used to int erpret this result as normal/abnormal . [facility] HospitalFwhtnciZCUXTNTAUR2250-75-21 02:07:00 Test Item Value Reference Range Interpretation Comments Segs-Bands # (test code = Segs-Bands #) 5.6 1.5-8.1 [facility]2016-09-21 09:04:00 Test Item Value Reference Range Interpretation Comments UIBC (test code = UIBC) 174 110-370 [facility]2016-09-21 09:04:00 Test Item Value Reference Range Interpretation Comments TIBC (test code = TIBC) 196 228-428 [facility]2016-09-21 09:04:00 Test Item Value Reference Range Interpretation Comments Iron (test code = Iron) 22 45-160 [facility]2016-09-21 09:04:00 Test Item Value Reference Range Interpretation Comments % Satur Fe (test code = % Satur Fe) 11 12-57 [facility] VTJKF0729-31-40 09:04:00 Test Item Value Reference Range Interpretation Comments UIBC (test code = UIBC) 174 110-370 [facility]2016-09-21 09:04:00 Test Item Value Reference Range Interpretation Comments TIBC (test code = TIBC) 196 228-428 [facility]2016-09-21 09:04:00 Test Item Value Reference Range Interpretation Comments Iron (test code = Iron) 22 45-160 [facility]2016-09-21 09:04:00 Test Item Value Reference Range Interpretation Comments % Satur Fe (test code = % Satur Fe) 11 12-57 [facility]2016-09-20 15:50:00 Test Item Value Reference Range Interpretation Comments eGFR (test code = eGFR) 57 [facility]2016-09-20 15:50:00 Test Item Value Reference Range Interpretation Comments AGAP (test code = AGAP) 14.7 10.0-20.0 [facility]2016-09-20 15:50:00 Test Item Value Reference Range Interpretation Comments Calcium Lvl (test code = Calcium Lvl) 8.7 8.5-10.5 [facility]2016-09-20 15:50:00 Test Item Value Reference Range Interpretation Comments CO2 (test code = CO2) 24 24-32 [facility]2016-09-20 15:50:00 Test Item Value Reference Range Interpretation Comments Chloride Lvl (test code = Chloride Lvl) 99 95-109 [facility]2016-09-20 15:50:00 Test Item Value Reference Range Interpretation Comments Potassium Lvl (test code = Potassium 3.7 3.5-5.1 Lvl) [facility]2016-09-20 15:50:00 Test Item Value Reference Range Interpretation Comments BUN (test code = BUN) 16 7-22 [facility]2016-09-20 15:50:00 Test Item Value Reference Range Interpretation Comments Glucose Lvl (test code = Glucose Lvl) 128 70-99 [facility]2016-09-20 15:50:00 Test Item Value Reference Range Interpretation Comments Sodium Lvl (test code = Sodium Lvl) 134 135-145 [facility]2016-09-20 15:50:00 Test Item Value Reference Range Interpretation Comments Creatinine Lvl (test code = Creatinine 1.42 0.50-1.40 Lvl) [facility]2016-09-20 15:50:00 Test Item Value Reference Range Interpretation Comments eGFR (test code = eGFR) 57 [facility]2016-09-20 15:50:00 Test Item Value Reference Range Interpretation Comments AGAP (test code = AGAP) 14.7 10.0-20.0 [facility]2016-09-20 15:50:00 Test Item Value Reference Range Interpretation Comments Calcium Lvl (test code = Calcium Lvl) 8.7 8.5-10.5 [facility]2016-09-20 15:50:00 Test Item Value Reference Range Interpretation Comments CO2 (test code = CO2) 24 24-32 [facility]2016-09-20 15:50:00 Test Item Value Reference Range Interpretation Comments Chloride Lvl (test code = Chloride Lvl) 99 95-109 [facility]2016-09-20 15:50:00 Test Item Value Reference Range Interpretation Comments Potassium Lvl (test code = Potassium 3.7 3.5-5.1 Lvl) [facility]2016-09-20 15:50:00 Test Item Value Reference Range Interpretation Comments BUN (test code = BUN) 16 7-22 [facility]2016-09-20 15:50:00 Test Item Value Reference Range Interpretation Comments Glucose Lvl (test code = Glucose Lvl) 128 70-99 [facility]2016-09-20 15:50:00 Test Item Value Reference Range Interpretation Comments Sodium Lvl (test code = Sodium Lvl) 134 135-145 [facility]2016-09-20 15:50:00 Test Item Value Reference Range Interpretation Comments Creatinine Lvl (test code = Creatinine 1.42 0.50-1.40 Lvl) [facility]2016-09-19 09:45:00 Test Item Value Reference Range Interpretation Comments eGFR (test code = eGFR) 51 [facility]2016-09-19 09:45:00 Test Item Value Reference Range Interpretation Comments Bili Total (test code = Bili Total) 0.8 0.2-1.3 [facility]2016-09-19 09:45:00 Test Item Value Reference Range Interpretation Comments ALT (test code = ALT) 25 See_Comment [Auto mated message] The system which ge nerated this result transmit roseann reference range : <=65. The reference range was not used to interpr et this result as reggie l/abnormal. [place] 443746-09-19 09:45:00 Test Item Value Reference Range Interpretation Comments AST (test code = AST) 15 See_Comment [Auto mated message] The system which ge nerated this result transmit roseann reference range : <=37. The reference range was not used to interpr et this result as reggie l/abnormal. [place] 443746-09-19 09:45:00 Test Item Value Reference Range Interpretation Comments Alk Phos (test code = Alk Phos) 62 39-136 [place] 443746-09-19 09:45:00 Test Item Value Reference Range Interpretation Comments Globulin (test code = Globulin) 4.8 2.7-4.2 [facility]2016-09-19 09:45:00 Test Item Value Reference Range Interpretation Comments A/G Ratio (test code = A/G Ratio) 0.5 0.7-1.6 [facility]2016-09-19 09:45:00 Test Item Value Reference Range Interpretation Comments Calcium Lvl (test code = Calcium Lvl) 9.0 8.5-10.5 [facility]2016-09-19 09:45:00 Test Item Value Reference Range Interpretation Comments Glucose Lvl (test code = Glucose Lvl) 109 70-99 [facility]2016-09-19 09:45:00 Test Item Value Reference Range Interpretation Comments CO2 (test code = CO2) 24 24-32 [facility]2016-09-19 09:45:00 Test Item Value Reference Range Interpretation Comments Chloride Lvl (test code = Chloride Lvl) 101 95-109 [facility]2016-09-19 09:45:00 Test Item Value Reference Range Interpretation Comments BUN (test code = BUN) 17 7-22 [facility]2016-09-19 09:45:00 Test Item Value Reference Range Interpretation Comments Potassium Lvl (test code = Potassium 4.1 3.5-5.1 Lvl) [facility]2016-09-19 09:45:00 Test Item Value Reference Range Interpretation Comments AGAP (test code = AGAP) 14.1 10.0-20.0 [facility]2016-09-19 09:45:00 Test Item Value Reference Range Interpretation Comments Albumin Lvl (test code = Albumin Lvl) 2.3 3.5-5.0 [facility]2016-09-19 09:45:00 Test Item Value Reference Range Interpretation Comments Total Protein (test code = Total 7.1 6.4-8.4 Protein) [facility]2016-09-19 09:45:00 Test Item Value Reference Range Interpretation Comments Creatinine Lvl (test code = Creatinine 1.55 0.50-1.40 Lvl) [facility]2016-09-19 09:45:00 Test Item Value Reference Range Interpretation Comments Sodium Lvl (test code = Sodium Lvl) 135 135-145 [facility]2016-09-19 09:45:00 Test Item Value Reference Range Interpretation Comments B/C Ratio (test code = B/C Ratio) 11 6-25 [facility]UuahfasDCAETPWNPA6466-55-24 09:45:00 Test Item Value Reference Range Interpretation Comments MPV (test code = MPV) 7.7 7.4-10.4 [facility]PpbdjojRCVCKWFNYQ3774-55-16 09:45:00 Test Item Value Reference Range Interpretation Comments Hct (test code = Hct) 25.4 42.0-54.0 [facility]WjdtwxcIFHVWBBDLD8969-91-94 09:45:00 Test Item Value Reference Range Interpretation Comments MCH (test code = MCH) 32.7 pg 27.0-31.0 [facility] HospitalVzuxsfeNYIDEMZNBH0074-32-37 09:45:00 Test Item Value Reference Range Interpretation Comments MCV (test code = MCV) 96.6 80.0-94.0 [facility]UwkvwgkABORVJRWLB5718-75-13 09:45:00 Test Item Value Reference Range Interpretation Comments Platelet (test code = Platelet) 296 133-450 [facility]XqzeabtFREMVDHNSH2870-08-39 09:45:00 Test Item Value Reference Range Interpretation Comments RDW (test code = RDW) 14.7 11.5-14.5 [facility] HospitalHrubxzwSRMYVSNLVT3898-99-47 09:45:00 Test Item Value Reference Range Interpretation Comments MCHC (test code = MCHC) 33.8 32.0-36.0 [facility] HospitalZplgzjgFYRGECELUL7239-29-42 09:45:00 Test Item Value Reference Range Interpretation Comments WBC (test code = WBC) 8.4 3.7-10.4 [facility]UhusrrbMAZJZDJEAF3309-82-36 09:45:00 Test Item Value Reference Range Interpretation Comments Hgb (test code = Hgb) 8.6 14.0-18.0 [facility] HospitalSbrusgeACUIZHITDQ3808-49-66 09:45:00 Test Item Value Reference Range Interpretation Comments RBC (test code = RBC) 2.63 4.70-6.10 [facility] HospitalTtymagzGAZBFJYVXD1141-52-35 09:45:00 Test Item Value Reference Range Interpretation Comments Lymphocytes # (test code = Lymphocytes 1.5 1.0-5.5 #) [facility] HospitalTvrpftzVQNVGOWRUN7397-06-58 09:45:00 Test Item Value Reference Range Interpretation Comments Eosinophils # (test code 0.2 See_Comment [A utomated message] The = Eosinophils #) system whic h generated this result tra nsmitted reference range : <=0.5. The reference r lance was not used to int erpret this result as normal/abnormal . [facility] HospitalVdljnohBEJXRQKCZL0684-40-18 09:45:00 Test Item Value Reference Range Interpretation Comments Monocytes # (test code 0.8 See_Comment [Aut omated message] The = Monocytes #) system which generated this result tra nsmitted reference range : <=0.8. The reference r lance was not used to int erpret this result as normal/abnormal . [facility] HospitalZzqiuvqVDRTTGJEMP8272-10-41 09:45:00 Test Item Value Reference Range Interpretation Comments Basophils # (test code 0.1 See_Comment [Aut omated message] The = Basophils #) system which generated this result tra nsmitted reference range : <=0.2. The reference r lance was not used to int erpret this result as normal/abnormal . [facility] HospitalExnesnjLMIBVCAMSN3918-19-95 09:45:00 Test Item Value Reference Range Interpretation Comments Monocytes (test code = Monocytes) 9.9 2.0-12.0 [facility] HospitalJmhqldySCQFAJXTJP6004-74-67 09:45:00 Test Item Value Reference Range Interpretation Comments Lymphocytes (test code = Lymphocytes) 17.2 20.0-40.0 [facility] HospitalZvarhfhEYOKFBGEKE7896-35-35 09:45:00 Test Item Value Reference Range Interpretation Comments Segs (test code = Segs) 69.8 45.0-75.0 [facility] HospitalNgtdijlETYONEJDED8819-82-79 09:45:00 Test Item Value Reference Range Interpretation Comments Eosinophils (test code = 2.2 See_Comment [A utomated message] The Eosinophils) system which ge nerated this result tra nsmitted reference range : <=4.0. The reference r lance was not used to int erpret this result as normal/abnormal . [facility] HospitalYwvmijvXWDPPZMPCH1536-17-01 09:45:00 Test Item Value Reference Range Interpretation Comments Segs-Bands # (test code = Segs-Bands #) 5.9 1.5-8.1 [facility] HospitalMtbtuleYWNPPREKKZ3225-80-08 09:45:00 Test Item Value Reference Range Interpretation Comments Basophils (test code = 0.9 See_Comment [Aut omated message] The Basophils) system which ge nerated this result tra nsmitted reference range : <=1.0. The reference r lance was not used to int erpret this result as normal/abnormal . [place] 167766-09-19 09:45:00 Test Item Value Reference Range Interpretation Comments Vanco Tr (test code = Vanco Tr) 14.8 [place] 167766-09-19 09:45:00 Test Item Value Reference Range Interpretation Comments Vanco Tr TND (test code = Vanco Tr TND) TBD [facility]2016-09-19 09:45:00 Test Item Value Reference Range Interpretation Comments eGFR (test code = eGFR) 51 [facility]2016-09-19 09:45:00 Test Item Value Reference Range Interpretation Comments Bili Total (test code = Bili Total) 0.8 0.2-1.3 [facility]2016-09-19 09:45:00 Test Item Value Reference Range Interpretation Comments ALT (test code = ALT) 25 See_Comment [Auto mated message] The system which ge nerated this result transmit roseann reference range : <=65. The reference range was not used to interpr et this result as reggie l/abnormal. [facility]2016-09-19 09:45:00 Test Item Value Reference Range Interpretation Comments AST (test code = AST) 15 See_Comment [Auto mated message] The system which ge nerated this result transmit roseann reference range : <=37. The reference range was not used to interpr et this result as reggie l/abnormal. [facility]2016-09-19 09:45:00 Test Item Value Reference Range Interpretation Comments Alk Phos (test code = Alk Phos) 62 39-136 [facility]2016-09-19 09:45:00 Test Item Value Reference Range Interpretation Comments Globulin (test code = Globulin) 4.8 2.7-4.2 [facility]2016-09-19 09:45:00 Test Item Value Reference Range Interpretation Comments A/G Ratio (test code = A/G Ratio) 0.5 0.7-1.6 [facility]2016-09-19 09:45:00 Test Item Value Reference Range Interpretation Comments Calcium Lvl (test code = Calcium Lvl) 9.0 8.5-10.5 [facility]2016-09-19 09:45:00 Test Item Value Reference Range Interpretation Comments Glucose Lvl (test code = Glucose Lvl) 109 70-99 [facility]2016-09-19 09:45:00 Test Item Value Reference Range Interpretation Comments CO2 (test code = CO2) 24 24-32 [facility]2016-09-19 09:45:00 Test Item Value Reference Range Interpretation Comments Chloride Lvl (test code = Chloride Lvl) 101 95-109 [facility]2016-09-19 09:45:00 Test Item Value Reference Range Interpretation Comments BUN (test code = BUN) 17 7-22 [facility]2016-09-19 09:45:00 Test Item Value Reference Range Interpretation Comments Potassium Lvl (test code = Potassium 4.1 3.5-5.1 Lvl) [facility]2016-09-19 09:45:00 Test Item Value Reference Range Interpretation Comments AGAP (test code = AGAP) 14.1 10.0-20.0 [facility]2016-09-19 09:45:00 Test Item Value Reference Range Interpretation Comments Albumin Lvl (test code = Albumin Lvl) 2.3 3.5-5.0 [facility]2016-09-19 09:45:00 Test Item Value Reference Range Interpretation Comments Total Protein (test code = Total 7.1 6.4-8.4 Protein) [facility]2016-09-19 09:45:00 Test Item Value Reference Range Interpretation Comments Creatinine Lvl (test code = Creatinine 1.55 0.50-1.40 Lvl) [facility]2016-09-19 09:45:00 Test Item Value Reference Range Interpretation Comments Sodium Lvl (test code = Sodium Lvl) 135 135-145 [facility]2016-09-19 09:45:00 Test Item Value Reference Range Interpretation Comments B/C Ratio (test code = B/C Ratio) 11 6-25 [facility]LzawfzmWPIFRDSYXU5866-00-20 09:45:00 Test Item Value Reference Range Interpretation Comments MPV (test code = MPV) 7.7 7.4-10.4 [facility] HospitalTllwyupGYHAXLCUKH5259-12-15 09:45:00 Test Item Value Reference Range Interpretation Comments Hct (test code = Hct) 25.4 42.0-54.0 [facility]UwtnqyuIUNDJNTCTJ4240-55-27 09:45:00 Test Item Value Reference Range Interpretation Comments MCH (test code = MCH) 32.7 pg 27.0-31.0 [facility] HospitalTyhnkboYEGHHPQZRI5857-25-17 09:45:00 Test Item Value Reference Range Interpretation Comments MCV (test code = MCV) 96.6 80.0-94.0 [facility] HospitalPnqblyaCOUWKCNCHW5261-28-21 09:45:00 Test Item Value Reference Range Interpretation Comments Platelet (test code = Platelet) 296 133-450 [facility] HospitalCnmahraRMLKOTGQLX1725-51-34 09:45:00 Test Item Value Reference Range Interpretation Comments RDW (test code = RDW) 14.7 11.5-14.5 [facility] HospitalWwwhbfoAQOBTSUPDX5027-68-42 09:45:00 Test Item Value Reference Range Interpretation Comments MCHC (test code = MCHC) 33.8 32.0-36.0 [facility] HospitalCafblnqSSHOZKBNFT1567-82-32 09:45:00 Test Item Value Reference Range Interpretation Comments WBC (test code = WBC) 8.4 3.7-10.4 [facility] HospitalPlfaravDKKCBKWDTC4703-03-61 09:45:00 Test Item Value Reference Range Interpretation Comments Hgb (test code = Hgb) 8.6 14.0-18.0 [facility] HospitalSdvquabATWLFPIFPJ7762-49-77 09:45:00 Test Item Value Reference Range Interpretation Comments RBC (test code = RBC) 2.63 4.70-6.10 [facility] HospitalCvbnafbKKZJXSJUFP0449-52-96 09:45:00 Test Item Value Reference Range Interpretation Comments Lymphocytes # (test code = Lymphocytes 1.5 1.0-5.5 #) [facility] HospitalXgakynxUWFBEDJJPR9874-18-52 09:45:00 Test Item Value Reference Range Interpretation Comments Eosinophils # (test code 0.2 See_Comment [A utomated message] The = Eosinophils #) system [facility] generated this result tra nsmitted reference range : <=0.5. The reference r lance was not used to int erpret this result as normal/abnormal . [facility] HospitalWxwiqwnBIMEDVJQPP3217-29-86 09:45:00 Test Item Value Reference Range Interpretation Comments Monocytes # (test code 0.8 See_Comment [Aut omated message] The = Monocytes #) system which generated this result tra nsmitted reference range : <=0.8. The reference r lance was not used to int erpret this result as normal/abnormal . [facility] HospitalImnyhhtFINAHEQZAF3372-82-43 09:45:00 Test Item Value Reference Range Interpretation Comments Basophils # (test code 0.1 See_Comment [Aut omated message] The = Basophils #) system which generated this result tra nsmitted reference range : <=0.2. The reference r lance was not used to int erpret this result as normal/abnormal . [facility] HospitalNuveusmIFTEYBVZAZ3692-87-29 09:45:00 Test Item Value Reference Range Interpretation Comments Monocytes (test code = Monocytes) 9.9 2.0-12.0 [facility]PanpknqFHUXNHTVLH0926-54-25 09:45:00 Test Item Value Reference Range Interpretation Comments Lymphocytes (test code = Lymphocytes) 17.2 20.0-40.0 [facility] HospitalLxtfogsTJBPEUPZCZ5422-46-40 09:45:00 Test Item Value Reference Range Interpretation Comments Segs (test code = Segs) 69.8 45.0-75.0 [facility] HospitalYkqdqijYNBNCBGOOE2719-63-19 09:45:00 Test Item Value Reference Range Interpretation Comments Eosinophils (test code = 2.2 See_Comment [A utomated message] The Eosinophils) system which ge nerated this result tra nsmitted reference range : <=4.0. The reference r lance was not used to int erpret this result as normal/abnormal . [facility] HospitalWyaiowmMMIFQTDZCJ9193-21-53 09:45:00 Test Item Value Reference Range Interpretation Comments Segs-Bands # (test code = Segs-Bands #) 5.9 1.5-8.1 [facility] HospitalCrhbvptUDFEDKNITX3599-02-97 09:45:00 Test Item Value Reference Range Interpretation Comments Basophils (test code = 0.9 See_Comment [Aut omated message] The Basophils) system which ge nerated this result tra nsmitted reference range : <=1.0. The reference r lance was not used to int erpret this result as normal/abnormal . [place] [id number] 09:45:00 Test Item Value Reference Range Interpretation Comments Vanco Tr (test code = Vanco Tr) 14.8 [place] 167766-09-19 09:45:00 Test Item Value Reference Range Interpretation Comments Vanco Tr TND (test code = Vanco Tr TND) TBD [facility]2016-09-18 09:54:00 Test Item Value Reference Range Interpretation Comments Total Protein (test code = Total 6.3 6.4-8.4 Protein) [facility]2016-09-18 09:54:00 Test Item Value Reference Range Interpretation Comments A/G Ratio (test code = A/G Ratio) 0.7 0.7-1.6 [facility]2016-09-18 09:54:00 Test Item Value Reference Range Interpretation Comments B/C Ratio (test code = B/C Ratio) 12 6-25 [facility]2016-09-18 09:54:00 Test Item Value Reference Range Interpretation Comments Globulin (test code = Globulin) 3.8 2.7-4.2 [facility]2016-09-18 09:54:00 Test Item Value Reference Range Interpretation Comments AST (test code = AST) 12 See_Comment [Auto mated message] The system which ge nerated this result transmit roseann reference range : <=37. The reference range was not used to interpr et this result as reggie l/abnormal. [facility]2016-09-18 09:54:00 Test Item Value Reference Range Interpretation Comments Alk Phos (test code = Alk Phos) 61 39-136 [facility]2016-09-18 09:54:00 Test Item Value Reference Range Interpretation Comments Albumin Lvl (test code = Albumin Lvl) 2.5 3.5-5.0 [facility]2016-09-18 09:54:00 Test Item Value Reference Range Interpretation Comments ALT (test code = ALT) 26 See_Comment [Auto mated message] The system which ge nerated this result transmit roseann reference range : <=65. The reference range was not used to interpr et this result as reggie l/abnormal. [facility]2016-09-18 09:54:00 Test Item Value Reference Range Interpretation Comments Bili Total (test code = Bili Total) 0.4 0.2-1.3 [place] [id number] 09:54:00 Test Item Value Reference Range Interpretation Comments AGAP (test code = AGAP) 13.5 10.0-20.0 [facility]2016-09-18 09:54:00 Test Item Value Reference Range Interpretation Comments eGFR (test code = eGFR) 57 [facility]2016-09-18 09:54:00 Test Item Value Reference Range Interpretation Comments CO2 (test code = CO2) 27 24-32 [facility]2016-09-18 09:54:00 Test Item Value Reference Range Interpretation Comments Calcium Lvl (test code = Calcium Lvl) 8.7 8.5-10.5 [facility]2016-09-18 09:54:00 Test Item Value Reference Range Interpretation Comments Chloride Lvl (test code = Chloride Lvl) 100 95-109 [facility]2016-09-18 09:54:00 Test Item Value Reference Range Interpretation Comments Potassium Lvl (test code = Potassium 4.5 3.5-5.1 Lvl) [facility]2016-09-18 09:54:00 Test Item Value Reference Range Interpretation Comments Creatinine Lvl (test code = Creatinine 1.42 0.50-1.40 Lvl) [facility]2016-09-18 09:54:00 Test Item Value Reference Range Interpretation Comments Sodium Lvl (test code = Sodium Lvl) 136 135-145 [facility]2016-09-18 09:54:00 Test Item Value Reference Range Interpretation Comments Glucose Lvl (test code = Glucose Lvl) 105 70-99 [facility]2016-09-18 09:54:00 Test Item Value Reference Range Interpretation Comments BUN (test code = BUN) 17 7-22 [place] [id number] 09:54:00 Test Item Value Reference Range Interpretation Comments Shankar Tr TND (test code = Vanco Tr TND) TBD [place] [id number] 09:54:00 Test Item Value Reference Range Interpretation Comments Vanco Tr (test code = Vanco Tr) 9.3 [facility] TrustN[facility] [id number] 09:54:00 Test Item Value Reference Range Interpretation Comments Total Protein (test code = Total 6.3 6.4-8.4 Protein) [facility]2016-09-18 09:54:00 Test Item Value Reference Range Interpretation Comments A/G Ratio (test code = A/G Ratio) 0.7 0.7-1.6 [facility]2016-09-18 09:54:00 Test Item Value Reference Range Interpretation Comments B/C Ratio (test code = B/C Ratio) 12 6-25 [facility]2016-09-18 09:54:00 Test Item Value Reference Range Interpretation Comments Globulin (test code = Globulin) 3.8 2.7-4.2 [place] [id number] 09:54:00 Test Item Value Reference Range Interpretation Comments AST (test code = AST) 12 See_Comment [Auto mated message] The system which ge nerated this result transmit roseann reference range : <=37. The reference range was not used to interpr et this result as reggie l/abnormal. [facility] [id number] 09:54:00 Test Item Value Reference Range Interpretation Comments Alk Phos (test code = Alk Phos) 61 39-136 [facility]2016-09-18 09:54:00 Test Item Value Reference Range Interpretation Comments Albumin Lvl (test code = Albumin Lvl) 2.5 3.5-5.0 [facility]2016-09-18 09:54:00 Test Item Value Reference Range Interpretation Comments ALT (test code = ALT) 26 See_Comment [Auto mated message] The system which ge nerated this result transmit roseann reference range : <=65. The reference range was not used to interpr et this result as reggie l/abnormal. [facility] [id number] 09:54:00 Test Item Value Reference Range Interpretation Comments Bili Total (test code = Bili Total) 0.4 0.2-1.3 [facility] [id number] 09:54:00 Test Item Value Reference Range Interpretation Comments AGAP (test code = AGAP) 13.5 10.0-20.0 [facility]2016-09-18 09:54:00 Test Item Value Reference Range Interpretation Comments eGFR (test code = eGFR) 57 [facility]2016-09-18 09:54:00 Test Item Value Reference Range Interpretation Comments CO2 (test code = CO2) 27 24-32 [facility]2016-09-18 09:54:00 Test Item Value Reference Range Interpretation Comments Calcium Lvl (test code = Calcium Lvl) 8.7 8.5-10.5 [facility]2016-09-18 09:54:00 Test Item Value Reference Range Interpretation Comments Chloride Lvl (test code = Chloride Lvl) 100 95-109 [facility]2016-09-18 09:54:00 Test Item Value Reference Range Interpretation Comments Potassium Lvl (test code = Potassium 4.5 3.5-5.1 Lvl) [facility]2016-09-18 09:54:00 Test Item Value Reference Range Interpretation Comments Creatinine Lvl (test code = Creatinine 1.42 0.50-1.40 Lvl) [facility]2016-09-18 09:54:00 Test Item Value Reference Range Interpretation Comments Sodium Lvl (test code = Sodium Lvl) 136 135-145 [facility]2016-09-18 09:54:00 Test Item Value Reference Range Interpretation Comments Glucose Lvl (test code = Glucose Lvl) 105 70-99 [facility]2016-09-18 09:54:00 Test Item Value Reference Range Interpretation Comments BUN (test code = BUN) 17 7-22 [place] [id number] 09:54:00 Test Item Value Reference Range Interpretation Comments Vanco Tr TND (test code = Vanco Tr TND) TBD [place] [id number] 09:54:00 Test Item Value Reference Range Interpretation Comments Vanco Tr (test code = Vanco Tr) 9.3 [facility]2016-09-17 17:04:00 Test Item Value Reference Range Interpretation Comments Phosphorus (test code = Phosphorus) 4.9 2.5-4.5 [facility]2016-09-17 17:04:00 Test Item Value Reference Range Interpretation Comments Magnesium Lvl (test code = Magnesium 1.8 1.8-2.4 Lvl) [facility]nbTMQQFTJBOV9099-88-53 17:04:00 Test Item Value Reference Range Interpretation Comments Segs (test code = Segs) 70.5 45.0-75.0 [facility] HospitalFsvhfeaTNGLIICERQ5579-91-52 17:04:00 Test Item Value Reference Range Interpretation Comments Lymphocytes (test code = Lymphocytes) 18.0 20.0-40.0 [facility] HospitalCvvzsrbXFTINRWUYS8859-32-99 17:04:00 Test Item Value Reference Range Interpretation Comments Monocytes (test code = Monocytes) 9.7 2.0-12.0 [facility] HospitalSuyaeslKTMEXFNOMZ7732-27-36 17:04:00 Test Item Value Reference Range Interpretation Comments Segs-Bands # (test code = Segs-Bands #) 6.4 1.5-8.1 [facility] HospitalUkqaymoWMCCUFUSQS1576-27-51 17:04:00 Test Item Value Reference Range Interpretation Comments Lymphocytes # (test code = Lymphocytes 1.6 1.0-5.5 #) [facility] HospitalEdyxwreLHCJSRMOMW7119-40-80 17:04:00 Test Item Value Reference Range Interpretation Comments Basophils (test code = 0.5 See_Comment [Aut omated message] The Basophils) system which ge nerated this result tra nsmitted reference range : <=1.0. The reference r lance was not used to int erpret this result as normal/abnormal . [facility] HospitalYduronzGCPMGNAHVP0394-27-15 17:04:00 Test Item Value Reference Range Interpretation Comments Eosinophils (test code = 1.3 See_Comment [A utomated message] The Eosinophils) system which ge nerated this result tra nsmitted reference range : <=4.0. The reference r lance was not used to int erpret this result as normal/abnormal . [facility] HospitalLbpdbvrWMVYOYXASH2625-82-69 17:04:00 Test Item Value Reference Range Interpretation Comments Monocytes # (test code 0.9 See_Comment [Aut omated message] The = Monocytes #) system which generated this result tra nsmitted reference range : <=0.8. The reference r lance was not used to int erpret this result as normal/abnormal . [facility] HospitalDmggqgbZESPLUVSZR9645-03-42 17:04:00 Test Item Value Reference Range Interpretation Comments Eosinophils # (test code 0.1 See_Comment [A utomated message] The = Eosinophils #) system whic h generated this result tra nsmitted reference range : <=0.5. The reference r lance was not used to int erpret this result as normal/abnormal . [facility] HospitalRwwibvkGKUNGZBEEI7823-60-30 17:04:00 Test Item Value Reference Range Interpretation Comments Platelet (test code = Platelet) 307 133-450 [facility] HospitalQmlpxwbKWPBMVNENO2746-18-65 17:04:00 Test Item Value Reference Range Interpretation Comments MPV (test code = MPV) 6.9 7.4-10.4 [facility] HospitalCjmjkpoTJTBSCUCCC6416-47-88 17:04:00 Test Item Value Reference Range Interpretation Comments MCHC (test code = MCHC) 33.9 32.0-36.0 [facility] HospitalFvbtcwxVEAAYDPOSI3557-35-71 17:04:00 Test Item Value Reference Range Interpretation Comments RDW (test code = RDW) 15.1 11.5-14.5 [facility] HospitalFddjbbmYGAZMFRXXM8024-22-27 17:04:00 Test Item Value Reference Range Interpretation Comments RBC (test code = RBC) 2.69 4.70-6.10 [facility] HospitalAaszkphLPRRSYEVML3197-35-63 17:04:00 Test Item Value Reference Range Interpretation Comments MCV (test code = MCV) 96.5 80.0-94.0 [facility] HospitalIxusibjBDEWNHYETN9842-41-46 17:04:00 Test Item Value Reference Range Interpretation Comments WBC (test code = WBC) 9.1 3.7-10.4 [facility] HospitalElbvdehWTMDRSIUFK8618-70-03 17:04:00 Test Item Value Reference Range Interpretation Comments Hgb (test code = Hgb) 8.8 14.0-18.0 [facility] HospitalTsvuuzzRXKKEMXQMH0985-34-00 17:04:00 Test Item Value Reference Range Interpretation Comments Hct (test code = Hct) 26.0 42.0-54.0 [facility] HospitalIgbezpzMZUYZPSNAQ8985-87-16 17:04:00 Test Item Value Reference Range Interpretation Comments MCH (test code = MCH) 32.7 pg 27.0-31.0 [facility] [id number] 17:04:00 Test Item Value Reference Range Interpretation Comments Phosphorus (test code = Phosphorus) 4.9 2.5-4.5 [facility]2016-09-17 17:04:00 Test Item Value Reference Range Interpretation Comments Magnesium Lvl (test code = Magnesium 1.8 1.8-2.4 Lvl) [facility] HospitalStauamrOKDFSTFHWZ4815-72-48 17:04:00 Test Item Value Reference Range Interpretation Comments Segs (test code = Segs) 70.5 45.0-75.0 [facility] HospitalLljpcvaULTQYXGSIA7592-43-08 17:04:00 Test Item Value Reference Range Interpretation Comments Lymphocytes (test code = Lymphocytes) 18.0 20.0-40.0 [facility] HospitalFxorhnrJSEHWVDUWN7655-58-43 17:04:00 Test Item Value Reference Range Interpretation Comments Monocytes (test code = Monocytes) 9.7 2.0-12.0 [facility] HospitalVnypnzuUQXKDEFETX3871-98-98 17:04:00 Test Item Value Reference Range Interpretation Comments Segs-Bands # (test code = Segs-Bands #) 6.4 1.5-8.1 [facility] HospitalMhfihvvANBSRNJAJZ5421-70-63 17:04:00 Test Item Value Reference Range Interpretation Comments Lymphocytes # (test code = Lymphocytes 1.6 1.0-5.5 #) [facility] HospitalSezomxdYHIXTLWGJI6893-33-49 17:04:00 Test Item Value Reference Range Interpretation Comments Basophils (test code = 0.5 See_Comment [Aut omated message] The Basophils) system which ge nerated this result tra nsmitted reference range : <=1.0. The reference r lance was not used to int erpret this result as normal/abnormal . [facility] HospitalDdpowipUVMIHGUZBX1777-00-63 17:04:00 Test Item Value Reference Range Interpretation Comments Eosinophils (test code = 1.3 See_Comment [A utomated message] The Eosinophils) system which ge nerated this result tra nsmitted reference range : <=4.0. The reference r lance was not used to int erpret this result as normal/abnormal . [facility] HospitalIengctdIPIPXYCXFZ3202-98-86 17:04:00 Test Item Value Reference Range Interpretation Comments Monocytes # (test code 0.9 See_Comment [Aut omated message] The = Monocytes #) system which generated this result tra nsmitted reference range : <=0.8. The reference r lance was not used to int erpret this result as normal/abnormal . [place] [address]-09-17 17:04:00 Test Item Value Reference Range Interpretation Comments Eosinophils # (test code 0.1 See_Comment [A utomated message] The = Eosinophils #) system whic h generated this result tra nsmitted reference range : <=0.5. The reference r lance was not used to int erpret this result as normal/abnormal . [facility] HospitalEpgceusESZPOKKTDW2403-21-03 17:04:00 Test Item Value Reference Range Interpretation Comments Platelet (test code = Platelet) 307 133-450 [facility] HospitalRdxjvjeKJVRGIBFIJ9464-82-42 17:04:00 Test Item Value Reference Range Interpretation Comments MPV (test code = MPV) 6.9 7.4-10.4 [facility] HospitalYxbmerqTOBAHBNDDH8111-28-64 17:04:00 Test Item Value Reference Range Interpretation Comments MCHC (test code = MCHC) 33.9 32.0-36.0 [facility] HospitalRlgpvsgCIFOCVJINU9799-82-37 17:04:00 Test Item Value Reference Range Interpretation Comments RDW (test code = RDW) 15.1 11.5-14.5 [facility] HospitalNuzerlyPTOWSOZLNS5615-20-35 17:04:00 Test Item Value Reference Range Interpretation Comments RBC (test code = RBC) 2.69 4.70-6.10 [facility] HospitalVfdeyfmJJLSPOBUGK8164-61-04 17:04:00 Test Item Value Reference Range Interpretation Comments MCV (test code = MCV) 96.5 80.0-94.0 [facility] HospitalUurylriKPVONDVAMJ2996-92-15 17:04:00 Test Item Value Reference Range Interpretation Comments WBC (test code = WBC) 9.1 3.7-10.4 [facility] HospitalPiahrjyJROLETFRNN4285-31-65 17:04:00 Test Item Value Reference Range Interpretation Comments Hgb (test code = Hgb) 8.8 14.0-18.0 [facility] HospitalKluvczzCCVYVMPTJZ1608-02-55 17:04:00 Test Item Value Reference Range Interpretation Comments Hct (test code = Hct) 26.0 42.0-54.0 [facility] HospitalWuimgffHIBIBEQWLB8221-42-72 17:04:00 Test Item Value Reference Range Interpretation Comments MCH (test code = MCH) 32.7 pg 27.0-31.0 [facility] HospitalFrsbkwhZVJQPLZLMY9940-38-27 08:18:00 Test Item Value Reference Range Interpretation Comments Segs-Bands # (test code = Segs-Bands #) 7.7 1.5-8.1 [facility] HospitalNvqnhjkZOGCSXCVTY6576-70-43 08:18:00 Test Item Value Reference Range Interpretation Comments Basophils (test code = 1.5 See_Comment [Aut omated message] The Basophils) system which ge nerated this result tra nsmitted reference range : <=1.0. The reference r lance was not used to int erpret this result as normal/abnormal . [facility] HospitalQnkelegVROUAEIAFY5174-93-29 08:18:00 Test Item Value Reference Range Interpretation Comments Basophils # (test code 0.2 See_Comment [Aut omated message] The = Basophils #) system which generated this result tra nsmitted reference range : <=0.2. The reference r lance was not used to int erpret this result as normal/abnormal . [facility] HospitalThtocjcTKJEBUVUHB0721-74-95 08:18:00 Test Item Value Reference Range Interpretation Comments Eosinophils # (test code 0.2 See_Comment [A utomated message] The = Eosinophils #) system whic h generated this result tra nsmitted reference range : <=0.5. The reference r lance was not used to int erpret this result as normal/abnormal . [facility] HospitalChpnrvsBAYPWMOBXV0054-40-19 08:18:00 Test Item Value Reference Range Interpretation Comments Monocytes # (test code 1.2 See_Comment [Aut omated message] The = Monocytes #) system which generated this result tra nsmitted reference range : <=0.8. The reference r lance was not used to int erpret this result as normal/abnormal . [facility] HospitalAxjstbxLNBSUKUAPO3084-13-11 08:18:00 Test Item Value Reference Range Interpretation Comments Segs (test code = Segs) 69.4 45.0-75.0 [facility] HospitalDfdiztrGEECVPETVZ0012-84-21 08:18:00 Test Item Value Reference Range Interpretation Comments Monocytes (test code = Monocytes) 10.5 2.0-12.0 [facility] HospitalErdmeayQZVXFWPJHO3409-47-66 08:18:00 Test Item Value Reference Range Interpretation Comments Eosinophils (test code = 1.6 See_Comment [A utomated message] The Eosinophils) system which ge nerated this result tra nsmitted reference range : <=4.0. The reference r lance was not used to int erpret this result as normal/abnormal . [facility] HospitalKwobeviFBTBCDYCLT7562-54-87 08:18:00 Test Item Value Reference Range Interpretation Comments Lymphocytes # (test code = Lymphocytes 1.9 1.0-5.5 #) [facility] HospitalUckwsshQBUNMGORJC7369-33-07 08:18:00 Test Item Value Reference Range Interpretation Comments Lymphocytes (test code = Lymphocytes) 17.0 20.0-40.0 [facility] HospitalSowpgrrZMGRQCHBUJ1523-89-08 08:18:00 Test Item Value Reference Range Interpretation Comments Hct (test code = Hct) 28.9 42.0-54.0 [facility] HospitalKelsmhnBLQRWXYDMD2492-14-42 08:18:00 Test Item Value Reference Range Interpretation Comments MCHC (test code = MCHC) 33.6 32.0-36.0 [facility] HospitalYbtkmuiQHFTCFLXUR2545-24-29 08:18:00 Test Item Value Reference Range Interpretation Comments RDW (test code = RDW) 14.6 11.5-14.5 [facility] HospitalXyngngdRBRKGXNYWE2641-80-54 08:18:00 Test Item Value Reference Range Interpretation Comments MCV (test code = MCV) 96.6 80.0-94.0 [facility] HospitalUdzikgbGQHTDLDVJV9471-49-16 08:18:00 Test Item Value Reference Range Interpretation Comments MCH (test code = MCH) 32.4 pg 27.0-31.0 [facility] HospitalHnjdultRVFBHNKDKH7791-79-33 08:18:00 Test Item Value Reference Range Interpretation Comments Hgb (test code = Hgb) 9.7 14.0-18.0 [facility] HospitalZguewydCAQBTJQUHQ1380-50-70 08:18:00 Test Item Value Reference Range Interpretation Comments WBC (test code = WBC) 11.1 3.7-10.4 [facility] HospitalDxonaqzCUAWUNWWMY4088-00-66 08:18:00 Test Item Value Reference Range Interpretation Comments RBC (test code = RBC) 2.99 4.70-6.10 [facility] HospitalGcauokhBTZAPSIOEX4326-24-07 08:18:00 Test Item Value Reference Range Interpretation Comments Platelet (test code = Platelet) 360 133-450 [facility] HospitalXfjpzbpRLVCUMJDQH1444-97-57 08:18:00 Test Item Value Reference Range Interpretation Comments MPV (test code = MPV) 7.4 7.4-10.4 [facility] HospitalEbczzlnJTVCFMQMKA9378-53-82 08:18:00 Test Item Value Reference Range Interpretation Comments Segs-Bands # (test code = Segs-Bands #) 7.7 1.5-8.1 [facility] HospitalJioqhqtFIXZLPTOQY5108-71-84 08:18:00 Test Item Value Reference Range Interpretation Comments Basophils (test code = 1.5 See_Comment [Aut omated message] The Basophils) system which ge nerated this result tra nsmitted reference range : <=1.0. The reference r lance was not used to int erpret this result as normal/abnormal . [facility] HospitalJdwajjcDJZWFBSEUO9013-29-70 08:18:00 Test Item Value Reference Range Interpretation Comments Basophils # (test code 0.2 See_Comment [Aut omated message] The = Basophils #) system which generated this result tra nsmitted reference range : <=0.2. The reference r lance was not used to int erpret this result as normal/abnormal . [facility] HospitalUuekpeqUKLMCJQNHJ6386-04-27 08:18:00 Test Item Value Reference Range Interpretation Comments Eosinophils # (test code 0.2 See_Comment [A utomated message] The = Eosinophils #) system whic h generated this result tra nsmitted reference range : <=0.5. The reference r lance was not used to int erpret this result as normal/abnormal . [facility] HospitalDxwggztHNNNAPIXSI4564-19-03 08:18:00 Test Item Value Reference Range Interpretation Comments Monocytes # (test code 1.2 See_Comment [Aut omated message] The = Monocytes #) system which generated this result tra nsmitted reference range : <=0.8. The reference r lance was not used to int erpret this result as normal/abnormal . [facility] HospitalQwcwxxqTYFASEWIEM4119-98-69 08:18:00 Test Item Value Reference Range Interpretation Comments Segs (test code = Segs) 69.4 45.0-75.0 [facility] HospitalEwqdboaNJDYSTJPFC7286-87-67 08:18:00 Test Item Value Reference Range Interpretation Comments Monocytes (test code = Monocytes) 10.5 2.0-12.0 [facility] HospitalHuxpmzeFHOJKNLEYS5218-99-91 08:18:00 Test Item Value Reference Range Interpretation Comments Eosinophils (test code = 1.6 See_Comment [A utomated message] The Eosinophils) system which ge nerated this result tra nsmitted reference range : <=4.0. The reference r lance was not used to int erpret this result as normal/abnormal . [facility] HospitalKeacqxqDKOERGBVKL5194-61-76 08:18:00 Test Item Value Reference Range Interpretation Comments Lymphocytes # (test code = Lymphocytes 1.9 1.0-5.5 #) [facility] HospitalGqfhlcrZNCYETVMIL5204-33-18 08:18:00 Test Item Value Reference Range Interpretation Comments Lymphocytes (test code = Lymphocytes) 17.0 20.0-40.0 [facility] HospitalVibupxmRDHYLWBEZT6530-25-94 08:18:00 Test Item Value Reference Range Interpretation Comments Hct (test code = Hct) 28.9 42.0-54.0 [facility] HospitalMqcwvxgOIVKWBDWMF1257-54-62 08:18:00 Test Item Value Reference Range Interpretation Comments MCHC (test code = MCHC) 33.6 32.0-36.0 [facility] HospitalHkukkjvIBFUPDHZES9396-50-97 08:18:00 Test Item Value Reference Range Interpretation Comments RDW (test code = RDW) 14.6 11.5-14.5 [facility] HospitalMgfqqoeLZZFSSCFLK4143-18-44 08:18:00 Test Item Value Reference Range Interpretation Comments MCV (test code = MCV) 96.6 80.0-94.0 [facility] HospitalEwqhfpqGTNJRPEKTD0108-61-41 08:18:00 Test Item Value Reference Range Interpretation Comments MCH (test code = MCH) 32.4 pg 27.0-31.0 [facility] HospitalDvgoersRKUVARICOM0961-74-43 08:18:00 Test Item Value Reference Range Interpretation Comments Hgb (test code = Hgb) 9.7 14.0-18.0 [facility] HospitalLecrgjtTCBJQLWRZB2659-77-12 08:18:00 Test Item Value Reference Range Interpretation Comments WBC (test code = WBC) 11.1 3.7-10.4 [facility] HospitalTihldrfVFKKUUWFIB2308-09-74 08:18:00 Test Item Value Reference Range Interpretation Comments RBC (test code = RBC) 2.99 4.70-6.10 [facility] HospitalWkjudsgEIEMTALKEA1278-62-07 08:18:00 Test Item Value Reference Range Interpretation Comments Platelet (test code = Platelet) 360 133-450 [facility] HospitalZdiowseFLPKBSNCZD2956-17-97 08:18:00 Test Item Value Reference Range Interpretation Comments MPV (test code = MPV) 7.4 7.4-10.4 [place] [id number] 09:02:00 Test Item Value Reference Range Interpretation Comments Vanco Tr (test code = Vanco Tr) 10.9 [place] [id number] 09:02:00 Test Item Value Reference Range Interpretation Comments Vanco Tr TND (test code = Vanco Tr TND) TBD [place] [id number] 09:02:00 Test Item Value Reference Range Interpretation Comments Vanco Tr (test code = Vanco Tr) 10.9 [place] [id number] 09:02:00 Test Item Value Reference Range Interpretation Comments Vanco Tr TND (test code = Vanco Tr TND) TBD [facility] HospitalAgelipsMXSNAHZHFI2292-52-62 08:14:00 Test Item Value Reference Range Interpretation Comments Basophils # (test code 0.1 See_Comment [Aut omated message] The = Basophils #) system which generated this result tra nsmitted reference range : <=0.2. The reference r lance was not used to int erpret this result as normal/abnormal . [place] [id number] 08:14:00 Test Item Value Reference Range Interpretation Comments Vanco Lvl (test code = Vanco Lvl) 14.1 [facility] HospitalIuscsdpVFZCFDXREQ8893-26-38 08:14:00 Test Item Value Reference Range Interpretation Comments Basophils # (test code 0.1 See_Comment [Aut omated message] The = Basophils #) system which generated this result tra nsmitted reference range : <=0.2. The reference r lance was not used to int erpret this result as normal/abnormal . [place] [id number] 08:14:00 Test Item Value Reference Range Interpretation Comments Vanco Lvl (test code = Vanco Lvl) 14.1 [facility] HospitalYgmvgczUUWMTGKPLO4475-95-88 18:46:00 Test Item Value Reference Range Interpretation Comments Sed Rate (test code = no gt See_Comment [Auto mated message] The Sed Rate) system which ge nerated this result transmit roseann reference range : <=15. The reference range was not used to interpr et this result as reggie l/abnormal. [facility]WvvvgwxBQRXQXHMTZ6127-03-60 18:46:00 Test Item Value Reference Range Interpretation Comments Sed Rate (test code = no gt See_Comment [Auto mated message] The Sed Rate) system which ge nerated this result transmit roseann reference range : <=15. The reference range was not used to interpr et this result as reggie l/abnormal. [facility] [facility] XMJOGKE6649-66-63 10:38:00 Test Item Value Reference Range Interpretation Comments Antibody Scrn (test Negative (02/08/16 5:38 code = Antibody Scrn) AM) [facility] [facility] JEFARUF5925-34-97 10:38:00 Test Item Value Reference Range Interpretation Comments ABO/Rh (test code = ABO/Rh) B POS [facility] [employer] [id number] 10:38:00 Test Item Value Reference Range Interpretation Comments Procalcitonin Lvl (test 0.11 See_Comment [Au tomated message] code = Procalcitonin Lvl) Th e system which generated this result transmitted ref erence range: <=0.10. The reference range was not used to interpr et this result as normal/abnormal . [facility] [facility] NVUEZRZ1614-06-06 10:38:00 Test Item Value Reference Range Interpretation Comments Antibody Scrn (test Negative (02/08/16 5:38 code = Antibody Scrn) AM) [facility] [facility] [id number] 10:38:00 Test Item Value Reference Range Interpretation Comments ABO/Rh (test code = ABO/Rh) B POS [employer] [id number] 10:38:00 Test Item Value Reference Range Interpretation Comments Procalcitonin Lvl (test 0.11 See_Comment [Au tomated message] code = Procalcitonin Lvl) Th e system which generated this result transmitted ref erence range: <=0.10. The reference range was not used to interpr et this result as normal/abnormal . [facility] AND [id number] 05:36:00 Test Item Value Reference Range Interpretation Comments UA Sq Epi (test code = UA Sq Epi) None Seen [facility] AND [id number] 05:36:00 Test Item Value Reference Range Interpretation Comments UA Urobilinogen (test code = UA <=1.0 mg/dL 0.1-1.0 Urobilinogen) [facility] AND [id number] 05:36:00 Test Item Value Reference Range Interpretation Comments UA Leuk Est (test Negative (02/05/16 12:36 code = UA Leuk Est) AM) [facility] AND [id number] 05:36:00 Test Item Value Reference Range Interpretation Comments UA Bacteria (test code = UA Occasional /HPF Bacteria) [facility] AND [id number] 05:36:00 Test Item Value Reference Range Interpretation Comments UA WBC (test code = 1 See_Comment [Automa roseann message] The UA WBC) system which ge nerated this result transmit roseann reference range : <=5. The reference range was not used to interpr et this result as reggie l/abnormal. [facility] AND [id number] 05:36:00 Test Item Value Reference Range Interpretation Comments UA Blood (test code = Negative (02/05/16 12:36 UA Blood) AM) [facility] AND [id number] 05:36:00 Test Item Value Reference Range Interpretation Comments UA Bili (test code = Negative *NA*(02/05/16 UA Bili) 12:36 AM) [facility] AND [id number] 05:36:00 Test Item Value Reference Range Interpretation Comments UA Nitrite (test code Negative (02/05/16 12:36 = UA Nitrite) AM) [facility] AND [id number] 05:36:00 Test Item Value Reference Range Interpretation Comments UA Glucose (test code = UA Negative mg/dL Glucose) [facility] AND [id number] 05:36:00 Test Item Value Reference Range Interpretation Comments UA Protein (test code = UA Negative mg/dL Protein) [facility] AND [id number] 05:36:00 Test Item Value Reference Range Interpretation Comments UA Turbidity (test code = Clear (02/05/16 12:36 UA Turbidity) AM) [facility] AND [id number] 05:36:00 Test Item Value Reference Range Interpretation Comments UA pH (test code = UA pH) 6.0 5.0-8.0 [facility] AND [id number] 05:36:00 Test Item Value Reference Range Interpretation Comments UA Color (test code = Light Yellow UA Color) *NA*(02/05/16 12:36 AM) [facility] AND [id number] 05:36:00 Test Item Value Reference Range Interpretation Comments UA Ketones (test code = UA Negative mg/dL Ketones) [facility] AND [id number] 05:36:00 Test Item Value Reference Range Interpretation Comments UA Spec Grav (test code = UA Spec Grav) 1.006 [facility] AND [id number] 05:36:00 Test Item Value Reference Range Interpretation Comments UA Sq Epi (test code = UA Sq Epi) None Seen [facility] AND [id number] 05:36:00 Test Item Value Reference Range Interpretation Comments UA Urobilinogen (test code = UA <=1.0 mg/dL 0.1-1.0 Urobilinogen) [facility] AND [id number] 05:36:00 Test Item Value Reference Range Interpretation Comments UA Leuk Est (test Negative (02/05/16 12:36 code = UA Leuk Est) AM) [facility] AND [id number] 05:36:00 Test Item Value Reference Range Interpretation Comments UA Bacteria (test code = UA Occasional /HPF Bacteria) [facility] AND [id number] 05:36:00 Test Item Value Reference Range Interpretation Comments UA WBC (test code = 1 See_Comment [Automa roseann message] The UA WBC) system which ge nerated this result transmit roseann reference range : <=5. The reference range was not used to interpr et this result as reggie l/abnormal. [facility] AND [id number] 05:36:00 Test Item Value Reference Range Interpretation Comments UA Blood (test code = Negative (02/05/16 12:36 UA Blood) AM) [facility] AND [id number] 05:36:00 Test Item Value Reference Range Interpretation Comments UA Bili (test code = Negative *NA*(02/05/16 UA Bili) 12:36 AM) [facility] AND [id number] 05:36:00 Test Item Value Reference Range Interpretation Comments UA Nitrite (test code Negative (02/05/16 12:36 = UA Nitrite) AM) [facility] AND [id number] 05:36:00 Test Item Value Reference Range Interpretation Comments UA Glucose (test code = UA Negative mg/dL Glucose) [facility] AND [id number] 05:36:00 Test Item Value Reference Range Interpretation Comments UA Protein (test code = UA Negative mg/dL Protein) [facility] AND [id number] 05:36:00 Test Item Value Reference Range Interpretation Comments UA Turbidity (test code = Clear (02/05/16 12:36 UA Turbidity) AM) [facility] AND [id number] 05:36:00 Test Item Value Reference Range Interpretation Comments UA pH (test code = UA pH) 6.0 5.0-8.0 [facility] AND [id number] 05:36:00 Test Item Value Reference Range Interpretation Comments UA Color (test code = Light Yellow UA Color) *NA*(02/05/16 12:36 AM) [facility] AND [id number] 05:36:00 Test Item Value Reference Range Interpretation Comments UA Ketones (test code = UA Negative mg/dL Ketones) [facility] AND [id number] 05:36:00 Test Item Value Reference Range Interpretation Comments UA Spec Grav (test code = UA Spec Grav) 1.006 [facility] AND [id number] 21:31:00 Test Item Value Reference Range Interpretation Comments UA Sq Epi (test code = UA Sq Epi) None Seen [facility] AND [id number] 21:31:00 Test Item Value Reference Range Interpretation Comments UA Urobilinogen (test code = UA <=1.0 mg/dL 0.1-1.0 Urobilinogen) [facility] AND [id number] 21:31:00 Test Item Value Reference Range Interpretation Comments UA Blood (test code = Negative (02/01/16 4:31 UA Blood) PM) [facility] AND [id number] 21:31:00 Test Item Value Reference Range Interpretation Comments UA Nitrite (test code Negative (02/01/16 4:31 = UA Nitrite) PM) [facility] AND [id number] 21:31:00 Test Item Value Reference Range Interpretation Comments UA Leuk Est (test Negative (02/01/16 4:31 code = UA Leuk Est) PM) [facility] AND [id number] 21:31:00 Test Item Value Reference Range Interpretation Comments UA WBC (test code = 1 See_Comment [Automa roseann message] The UA WBC) system which ge nerated this result transmit roseann reference range : <=5. The reference range was not used to interpr et this result as reggie l/abnormal. [facility] AND [id number] 21:31:00 Test Item Value Reference Range Interpretation Comments UA Hyal Cast (test 3 See_Comment [Automat ed message] The code = UA Hyal Cast) system which generated this result transmit roseann reference range : <=2. The reference range was not used to interpr et this result as reggie l/abnormal. [facility] AND [id number] 21:31:00 Test Item Value Reference Range Interpretation Comments UA pH (test code = UA pH) 5.5 5.0-8.0 [facility] AND [id number] 21:31:00 Test Item Value Reference Range Interpretation Comments UA Glucose (test code = UA Negative mg/dL Glucose) [facility] AND [id number] 21:31:00 Test Item Value Reference Range Interpretation Comments UA Ketones (test code = UA Negative mg/dL Ketones) [facility] AND [id number] 21:31:00 Test Item Value Reference Range Interpretation Comments UA Bili (test code = Negative *NA*(02/01/16 UA Bili) 4:31 PM) [facility] AND [id number] 21:31:00 Test Item Value Reference Range Interpretation Comments UA Protein (test code = UA Negative mg/dL Protein) [facility] AND [id number] 21:31:00 Test Item Value Reference Range Interpretation Comments UA Color (test code = Yellow *NA*(02/01/16 4:31 UA Color) PM) [facility] AND [id number] 21:31:00 Test Item Value Reference Range Interpretation Comments UA Turbidity (test code = Clear (02/01/16 4:31 UA Turbidity) PM) [facility] AND [id number] 21:31:00 Test Item Value Reference Range Interpretation Comments UA Spec Grav (test code = UA Spec Grav) 1.007 [facility]2016-09-06 21:31:00 Test Item Value Reference Range Interpretation Comments U Chloride (test code = U Chloride) 41 [facility]2016-09-06 21:31:00 Test Item Value Reference Range Interpretation Comments U Creatinine (test code = U Creatinine) 70.40 [facility]2016-09-06 21:31:00 Test Item Value Reference Range Interpretation Comments U Sodium (test code = U Sodium) 38 [facility] AND [id number] 21:31:00 Test Item Value Reference Range Interpretation Comments UA Sq Epi (test code = UA Sq Epi) None Seen [facility] AND [id number] 21:31:00 Test Item Value Reference Range Interpretation Comments UA Urobilinogen (test code = UA <=1.0 mg/dL 0.1-1.0 Urobilinogen) [facility] AND [id number] 21:31:00 Test Item Value Reference Range Interpretation Comments UA Blood (test code = Negative (02/01/16 4:31 UA Blood) PM) [facility] AND [id number] 21:31:00 Test Item Value Reference Range Interpretation Comments UA Nitrite (test code Negative (02/01/16 4:31 = UA Nitrite) PM) [facility] AND [id number] 21:31:00 Test Item Value Reference Range Interpretation Comments UA Leuk Est (test Negative (02/01/16 4:31 code = UA Leuk Est) PM) [facility] AND [id number] 21:31:00 Test Item Value Reference Range Interpretation Comments UA WBC (test code = 1 See_Comment [Automa roseann message] The UA WBC) system which ge nerated this result transmit roseann reference range : <=5. The reference range was not used to interpr et this result as reggie l/abnormal. [facility] AND [id number] 21:31:00 Test Item Value Reference Range Interpretation Comments UA Hyal Cast (test 3 See_Comment [Automat ed message] The code = UA Hyal Cast) system which generated this result transmit roseann reference range : <=2. The reference range was not used to interpr et this result as reggie l/abnormal. [facility] AND [id number] 21:31:00 Test Item Value Reference Range Interpretation Comments UA pH (test code = UA pH) 5.5 5.0-8.0 [facility] AND [id number] 21:31:00 Test Item Value Reference Range Interpretation Comments UA Glucose (test code = UA Negative mg/dL Glucose) [facility] AND [id number] 21:31:00 Test Item Value Reference Range Interpretation Comments UA Ketones (test code = UA Negative mg/dL Ketones) [facility] AND [id number] 21:31:00 Test Item Value Reference Range Interpretation Comments UA Bili (test code = Negative *NA*(02/01/16 UA Bili) 4:31 PM) [facility] AND [id number] 21:31:00 Test Item Value Reference Range Interpretation Comments UA Protein (test code = UA Negative mg/dL Protein) [facility] AND [id number] 21:31:00 Test Item Value Reference Range Interpretation Comments UA Color (test code = Yellow *NA*(02/01/16 4:31 UA Color) PM) [facility] AND [id number] 21:31:00 Test Item Value Reference Range Interpretation Comments UA Turbidity (test code = Clear (02/01/16 4:31 UA Turbidity) PM) [facility] AND [id number] 21:31:00 Test Item Value Reference Range Interpretation Comments UA Spec Grav (test code = UA Spec Grav) 1.007 [facility] [id number] 21:31:00 Test Item Value Reference Range Interpretation Comments U Chloride (test code = U Chloride) 41 [facility] [id number] 21:31:00 Test Item Value Reference Range Interpretation Comments U Creatinine (test code = U Creatinine) 70.40 [facility] [id number] 21:31:00 Test Item Value Reference Range Interpretation Comments U Sodium (test code = U Sodium) 38 [facility] [id number] 20:44:00 Test Item Value Reference Range Interpretation Comments Troponin-I (test code no gt See_Comment [Auto mated message] The = Troponin-I) system which g enerated this result transmit roseann reference range : <=0.40. The reference r lance was not used to interpr et this result as reggie l/abnormal. [facility]2016-09-05 20:44:00 Test Item Value Reference Range Interpretation Comments Procalcitonin Lvl (test 0.13 See_Comment [Au tomated message] code = Procalcitonin Lvl) Th e system which generated this result transmitted ref erence range: <=0.10. The reference range was not used to interpr et this result as normal/abnormal . [facility]2016-09-05 20:44:00 Test Item Value Reference Range Interpretation Comments Lactic Acid Lvl (test code = Lactic 1.7 0.5-2.2 Acid Lvl) [facility]2016-09-05 20:44:00 Test Item Value Reference Range Interpretation Comments Bili Total (test code = Bili Total) 0.4 0.2-1.3 [facility] [id number] 20:44:00 Test Item Value Reference Range Interpretation Comments Total Protein (test code = Total 7.7 6.4-8.4 Protein) [facility]2016-09-05 20:44:00 Test Item Value Reference Range Interpretation Comments AST (test code = AST) 19 See_Comment [Auto mated message] The system which ge nerated this result transmit roseann reference range : <=37. The reference range was not used to interpr et this result as reggie l/abnormal. [facility] [id number] 20:44:00 Test Item Value Reference Range Interpretation Comments ALT (test code = ALT) 23 See_Comment [Auto mated message] The system which ge nerated this result transmit roseann reference range : <=65. The reference range was not used to interpr et this result as reggie l/abnormal. [facility] [id number] 20:44:00 Test Item Value Reference Range Interpretation Comments Alk Phos (test code = Alk Phos) 58 39-136 [facility]2016-09-05 20:44:00 Test Item Value Reference Range Interpretation Comments Albumin Lvl (test code = Albumin Lvl) 2.8 3.5-5.0 [facility] [id number] 20:44:00 Test Item Value Reference Range Interpretation Comments A/G Ratio (test code = A/G Ratio) 0.6 0.7-1.6 [facility] [id number] 20:44:00 Test Item Value Reference Range Interpretation Comments Globulin (test code = Globulin) 4.9 2.7-4.2 [facility] [id number] 20:44:00 Test Item Value Reference Range Interpretation Comments B/C Ratio (test code = B/C Ratio) 15 6-25 [id number] 20:44:00 Test Item Value Reference Range Interpretation Comments PTT (test code = PTT) 42.4 s 22.9-35.8 [facility] [id number] 20:44:00 Test Item Value Reference Range Interpretation Comments PT (test code = PT) 14.6 s 12.0-14.7 [id number] 20:44:00 Test Item Value Reference Range Interpretation Comments INR (test code = INR) 1.11 0.85-1.17 [facility] [id number] 20:44:00 Test Item Value Reference Range Interpretation Comments Troponin-I (test code no gt See_Comment [Auto mated message] The = Troponin-I) system which g enerated this result transmit roseann reference range : <=0.40. The reference r lance was not used to interpr et this result as reggie l/abnormal. [facility] [id number] 20:44:00 Test Item Value Reference Range Interpretation Comments Procalcitonin Lvl (test 0.13 See_Comment [Au tomated message] code = Procalcitonin Lvl) Th e system which generated this result transmitted ref erence range: <=0.10. The reference range was not used to interpr et this result as normal/abnormal . [facility] [id number] 20:44:00 Test Item Value Reference Range Interpretation Comments Lactic Acid Lvl (test code = Lactic 1.7 0.5-2.2 Acid Lvl) [facility] [id number] 20:44:00 Test Item Value Reference Range Interpretation Comments Bili Total (test code = Bili Total) 0.4 0.2-1.3 [place] [id number] 20:44:00 Test Item Value Reference Range Interpretation Comments Total Protein (test code = Total 7.7 6.4-8.4 Protein) [place] [id number] 20:44:00 Test Item Value Reference Range Interpretation Comments AST (test code = AST) 19 See_Comment [Auto mated message] The system which ge nerated this result transmit roseann reference range : <=37. The reference range was not used to interpr et this result as reggie l/abnormal. [place] [id number] 20:44:00 Test Item Value Reference Range Interpretation Comments ALT (test code = ALT) 23 See_Comment [Auto mated message] The system which ge nerated this result transmit roseann reference range : <=65. The reference range was not used to interpr et this result as reggie l/abnormal. [place] [id number] 20:44:00 Test Item Value Reference Range Interpretation Comments Alk Phos (test code = Alk Phos) 58 39-136 [place] [id number] 20:44:00 Test Item Value Reference Range Interpretation Comments Albumin Lvl (test code = Albumin Lvl) 2.8 3.5-5.0 [place] [id number] 20:44:00 Test Item Value Reference Range Interpretation Comments A/G Ratio (test code = A/G Ratio) 0.6 0.7-1.6 [place] 443746-09-05 20:44:00 Test Item Value Reference Range Interpretation Comments Globulin (test code = Globulin) 4.9 2.7-4.2 [place] [id number] 20:44:00 Test Item Value Reference Range Interpretation Comments B/C Ratio (test code = B/C Ratio) 15 6-25 [place] [id number] 20:44:00 Test Item Value Reference Range Interpretation Comments PTT (test code = PTT) 42.4 s 22.9-35.8 [place] 433136-09-05 20:44:00 Test Item Value Reference Range Interpretation Comments PT (test code = PT) 14.6 s 12.0-14.7 [place] 433136-09-05 20:44:00 Test Item Value Reference Range Interpretation Comments INR (test code = INR) 1.11 0.85-1.17 [facility] [id number] 05:00:00 Test Item Value Reference Range Interpretation Comments VLDL (test code = VLDL) 77 [facility] CenterNfpycueIBOKPK3717-28-58 05:00:00 Test Item Value Reference Range Interpretation Comments HDL (test code = HDL) 29 [facility] CenterWpndhtvSBXGVG2439-09-13 05:00:00 Test Item Value Reference Range Interpretation Comments Chol (test code = Chol) 222 [facility] CenterRycuucmXHYZHC1743-99-94 05:00:00 Test Item Value Reference Range Interpretation Comments CHD Risk (test code = CHD Risk) 7.66 4.00-7.30 [facility] CenterFtixyfeCJZENF4595-73-02 05:00:00 Test Item Value Reference Range Interpretation Comments Trig (test code = Trig) 384 [facility] CenterJxwmlymRAPFFG4736-70-11 05:00:00 Test Item Value Reference Range Interpretation Comments LDL (Calculated) (test code = LDL 116 (Calculated)) [facility] HospitalFkmaazaXKBXFQ8895-52-98 05:00:00 Test Item Value Reference Range Interpretation Comments VLDL (test code = VLDL) 77 [facility] [id number] 05:00:00 Test Item Value Reference Range Interpretation Comments HDL (test code = HDL) 29 [facility] CenterGrwdiwuHAQZOX8698-85-01 05:00:00 Test Item Value Reference Range Interpretation Comments Chol (test code = Chol) 222 [facility] CenterHvdlbdqCCECZV5274-43-19 05:00:00 Test Item Value Reference Range Interpretation Comments CHD Risk (test code = CHD Risk) 7.66 4.00-7.30 [facility] HospitalPkgvuaaTYJLQI8591-20-98 05:00:00 Test Item Value Reference Range Interpretation Comments Trig (test code = Trig) 384 [facility] CenterEftggrpATQJMG1692-07-94 05:00:00 Test Item Value Reference Range Interpretation Comments LDL (Calculated) (test code = LDL 116 (Calculated)) [facility] [id number] 04:23:00 Test Item Value Reference Range Interpretation Comments CK MB Index (test 0.8 See_Comment [Automate d message] The code = CK MB Index) system w [facility] generated this result transmit roseann reference range : <=2.5. The reference range was not used to interpr et this result as reggie l/abnormal. [facility] OSIsoftCARDDNAC [id number] 04:23:00 Test Item Value Reference Range Interpretation Comments CK MB (test code = CK MB) 0.6 0.5-3.6 [facility] HospitalannCARDDNAC [id number] 04:23:00 Test Item Value Reference Range Interpretation Comments Troponin-I (test code no gt See_Comment [Auto mated message] The = Troponin-I) system which g enerated this result transmit roseann reference range : <=0.40. The reference r lance was not used to interpr et this result as reggie l/abnormal. [facility] HospitalMyWebzz [id number] 04:23:00 Test Item Value Reference Range Interpretation Comments Total CK (test code = Total CK) 76 191 [facility] HospitalMy[facility] [id number] 04:23:00 Test Item Value Reference Range Interpretation Comments CK MB Index (test 0.8 See_Comment [Automate d message] The code = CK MB Index) system w [facility] generated this result transmit roseann reference range : <=2.5. The reference range was not used to interpr et this result as reggie l/abnormal. [facility] hereO [id number] 04:23:00 Test Item Value Reference Range Interpretation Comments CK MB (test code = CK MB) 0.6 0.5-3.6 [facility] [id number] 04:23:00 Test Item Value Reference Range Interpretation Comments Troponin-I (test code no gt See_Comment [Auto mated message] The = Troponin-I) system which g enerated this result transmit roseann reference range : <=0.40. The reference r lance was not used to interpr et this result as reggie l/abnormal. [facility] hereO [id number] 04:23:00 Test Item Value Reference Range Interpretation Comments Total CK (test code = Total CK) 76 12191 [facility] [id number] 00:27:00 Test Item Value Reference Range Interpretation Comments Troponin-I (test code no gt See_Comment [Auto mated message] The = Troponin-I) system which g enerated this result transmit roseann reference range : <=0.40. The reference r lance was not used to interpr et this result as reggie l/abnormal. [facility] [id number] 00:27:00 Test Item Value Reference Range Interpretation Comments Total CK (test code = Total CK) 89 191 [facility] HospitalannCARD[facility]AC [id number] 00:27:00 Test Item Value Reference Range Interpretation Comments CK MB Index (test 1.0 See_Comment [Automate d message] The code = CK MB Index) system w [employer] generated this result transmit roseann reference range : <=2.5. The reference range was not used to interpr et this result as reggie l/abnormal. [facility] OSIsoftCARDIAC [id number] 00:27:00 Test Item Value Reference Range Interpretation Comments CK MB (test code = CK MB) 0.9 0.5-3.6 [facility] HermannTHYROID [id number] 00:27:00 Test Item Value Reference Range Interpretation Comments TSH (test code = TSH) 2.000 0.360-3.740 [facility] Compliance AssuranceannPlaySpanDIAC [id number] 00:27:00 Test Item Value Reference Range Interpretation Comments Troponin-I (test code no gt See_Comment [Auto mated message] The = Troponin-I) system which g enerated this result transmit roseann reference range : <=0.40. The reference r lance was not used to interpr et this result as reggie l/abnormal. [facility] Compliance AssuranceannCARDIAC [id number] 00:27:00 Test Item Value Reference Range Interpretation Comments Total CK (test code = Total CK) 89 191 [facility] [id number] 00:27:00 Test Item Value Reference Range Interpretation Comments CK MB Index (test 1.0 See_Comment [Automate d message] The code = CK MB Index) system [employer] generated this result transmit roseann reference range : <=2.5. The reference range was not used to interpr et this result as reggie l/abnormal. [facility] Compliance AssuranceannCARDIAC [id number] 00:27:00 Test Item Value Reference Range Interpretation Comments CK MB (test code = CK MB) 0.9 0.5-3.6 [facility] [id number] 00:27:00 Test Item Value Reference Range Interpretation Comments TSH (test code = TSH) 2.000 0.360-3.740 [facility] GenciaAC [id number] 19:22:00 Test Item Value Reference Range Interpretation Comments CK MB Index (test 0.8 See_Comment [Automate d message] The code = CK MB Index) system w [facility] generated this result transmit roseann reference range : <=2.5. The reference range was not used to interpr et this result as reggie l/abnormal. [facility] [employer]2015-09-21 19:22:00 Test Item Value Reference Range Interpretation Comments Troponin-I (test code no gt See_Comment [Auto mated message] The = Troponin-I) system which g enerated this result transmit roseann reference range : <=0.40. The reference r lance was not used to interpr et this result as reggie l/abnormal. [facility] [employer]2015-09-21 19:22:00 Test Item Value Reference Range Interpretation Comments Total CK (test code = Total CK) 111 12-191 [facility] [employer]2015-09-21 19:22:00 Test Item Value Reference Range Interpretation Comments CK MB (test code = CK MB) 0.9 0.5-3.6 [facility] [employer] [id number] 19:22:00 Test Item Value Reference Range Interpretation Comments eGFR (test code = eGFR) 70 [facility] [employer] [id number] 19:22:00 Test Item Value Reference Range Interpretation Comments Alk Phos (test code = Alk Phos) 87 39-136 [facility] [employer] [id number] 19:22:00 Test Item Value Reference Range Interpretation Comments AST (test code = AST) 23 See_Comment [Auto mated message] The system which ge nerated this result transmit roseann reference range : <=37. The reference range was not used to interpr et this result as reggie l/abnormal. [employer]2015-09-21 19:22:00 Test Item Value Reference Range Interpretation Comments ALT (test code = ALT) 27 See_Comment [Auto mated message] The system which ge nerated this result transmit roseann reference range : <=65. The reference range was not used to interpr et this result as reggie l/abnormal. [facility]2015-09-21 19:22:00 Test Item Value Reference Range Interpretation Comments Albumin Lvl (test code = Albumin Lvl) 3.4 3.5-5.0 [facility]2015-09-21 19:22:00 Test Item Value Reference Range Interpretation Comments Total Protein (test code = Total 7.7 6.4-8.4 Protein) [facility]2015-09-21 19:22:00 Test Item Value Reference Range Interpretation Comments A/G Ratio (test code = A/G Ratio) 0.8 0.7-1.6 [place] [id number] 19:22:00 Test Item Value Reference Range Interpretation Comments Globulin (test code = Globulin) 4.3 2.0-4.0 [facility]2015-09-21 19:22:00 Test Item Value Reference Range Interpretation Comments B/C Ratio (test code = B/C Ratio) 6 6-25 [facility]2015-09-21 19:22:00 Test Item Value Reference Range Interpretation Comments AGAP (test code = AGAP) 11.8 10.0-20.0 [facility]2015-09-21 19:22:00 Test Item Value Reference Range Interpretation Comments Bili Total (test code = Bili Total) 0.4 0.2-1.3 [facility]2015-09-21 19:22:00 Test Item Value Reference Range Interpretation Comments Calcium Lvl (test code = Calcium Lvl) 9.2 8.5-10.5 [facility]2015-09-21 19:22:00 Test Item Value Reference Range Interpretation Comments CO2 (test code = CO2) 25 24-32 [facility]2015-09-21 19:22:00 Test Item Value Reference Range Interpretation Comments Glucose Lvl (test code = Glucose Lvl) 88 70-99 [facility]2015-09-21 19:22:00 Test Item Value Reference Range Interpretation Comments Chloride Lvl (test code = Chloride Lvl) 106 95-109 [facility]2015-09-21 19:22:00 Test Item Value Reference Range Interpretation Comments Potassium Lvl (test code = Potassium 4.8 3.5-5.1 Lvl) [facility]2015-09-21 19:22:00 Test Item Value Reference Range Interpretation Comments Sodium Lvl (test code = Sodium Lvl) 138 135-145 [facility]2015-09-21 19:22:00 Test Item Value Reference Range Interpretation Comments Creatinine Lvl (test code = Creatinine 1.2 0.5-1.4 Lvl) [facility]2015-09-21 19:22:00 Test Item Value Reference Range Interpretation Comments BUN (test code = BUN) 7 7-22 [facility]2015-09-21 19:22:00 Test Item Value Reference Range Interpretation Comments Magnesium Lvl (test code = Magnesium 2.0 1.8-2.4 Lvl) [id number] 19:22:00 Test Item Value Reference Range Interpretation Comments Eosinophils # (test code 0.4 See_Comment [A utomated message] The = Eosinophils #) system [facility] generated this result tra nsmitted reference range : <=0.5. The reference r lance was not used to int erpret this result as normal/abnormal . [facility] Ho[id number] 19:22:00 Test Item Value Reference Range Interpretation Comments Basophils # (test code 0.0 See_Comment [Aut omated message] The = Basophils #) system which generated this result tra nsmitted reference range : <=0.2. The reference r lance was not used to int erpret this result as normal/abnormal . [facility] HospitalQdfoarnHAEBOKYDNU1274-30-36 19:22:00 Test Item Value Reference Range Interpretation Comments Segs-Bands # (test code = Segs-Bands #) 4.6 1.5-8.1 [facility] Hos[id number] 19:22:00 Test Item Value Reference Range Interpretation Comments Monocytes # (test code 0.8 See_Comment [Aut omated message] The = Monocytes #) system which generated this result tra nsmitted reference range : <=0.8. The reference r lance was not used to int erpret this result as normal/abnormal . [facility] HospitalAlmrbfyFZQBEYCDWP0260-08-58 19:22:00 Test Item Value Reference Range Interpretation Comments Monocytes (test code = Monocytes) 10.3 2.0-12.0 [facility] HospitalQavakqvNWXGUXMBLF0316-82-24 19:22:00 Test Item Value Reference Range Interpretation Comments Eosinophils (test code = 5.0 See_Comment [A utomated message] The Eosinophils) system which ge nerated this result tra nsmitted reference range : <=4.0. The reference r lance was not used to int erpret this result as normal/abnormal . [facility] Hos[id number] 19:22:00 Test Item Value Reference Range Interpretation Comments Basophils (test code = 0.4 See_Comment [Aut omated message] The Basophils) system which ge nerated this result tra nsmitted reference range : <=1.0. The reference r lance was not used to int erpret this result as normal/abnormal . [facility] HospitalMuccemlURWJVWKKVU9049-69-63 19:22:00 Test Item Value Reference Range Interpretation Comments Lymphocytes (test code = Lymphocytes) 25.7 20.0-40.0 [facility] HospitalTtmnpktKGDPFROKXF6969-80-49 19:22:00 Test Item Value Reference Range Interpretation Comments Lymphocytes # (test code = Lymphocytes 2.0 1.0-5.5 #) [facility] HospitalJduybgcTBIIRDYJSO3848-56-13 19:22:00 Test Item Value Reference Range Interpretation Comments Segs (test code = Segs) 58.6 45.0-75.0 [facility] HospitalVarnlxuYOYXTVEYGZ2407-41-59 19:22:00 Test Item Value Reference Range Interpretation Comments INR (test code = INR) 1.00 0.85-1.17 [facility] HospitalFohrmwnUKBBXWZROG3130-67-04 19:22:00 Test Item Value Reference Range Interpretation Comments PT (test code = PT) 13.5 s 12.0-14.7 [facility] HospitalFiuwdsuFFIHULXJOE9299-16-57 19:22:00 Test Item Value Reference Range Interpretation Comments PTT (test code = PTT) 33.7 s 22.9-35.8 [facility] HospitalOppkavbPSAJOSMRWZ7054-92-94 19:22:00 Test Item Value Reference Range Interpretation Comments Platelet (test code = Platelet) 170 133-450 [facility] HospitalPjgakkvWVDINFHPQL0333-93-53 19:22:00 Test Item Value Reference Range Interpretation Comments WBC (test code = WBC) 7.8 3.7-10.4 [facility] HospitalJvxjkyrUDHEDMSEBB6633-65-09 19:22:00 Test Item Value Reference Range Interpretation Comments MCH (test code = MCH) 33.3 pg 27.0-31.0 [facility]FqzxnbuWGXHRTOAVO1232-13-12 19:22:00 Test Item Value Reference Range Interpretation Comments RBC (test code = RBC) 4.62 4.70-6.10 [facility] HospitalRsqmppgWQCVTEBTRD0062-93-45 19:22:00 Test Item Value Reference Range Interpretation Comments MCV (test code = MCV) 97.4 80.0-94.0 [facility] HospitalBpocgetANABQUTGFC7347-57-83 19:22:00 Test Item Value Reference Range Interpretation Comments Hgb (test code = Hgb) 15.4 14.0-18.0 [facility] HospitalSfbfcsrEOWDFIZLON6599-12-58 19:22:00 Test Item Value Reference Range Interpretation Comments Hct (test code = Hct) 45.0 42.0-54.0 [facility] HospitalGcnnznwHKHVQMZSGY5186-22-40 19:22:00 Test Item Value Reference Range Interpretation Comments MCHC (test code = MCHC) 34.2 32.0-36.0 [facility] HospitalLggzhyuUTKOPSXVOK5809-30-25 19:22:00 Test Item Value Reference Range Interpretation Comments MPV (test code = MPV) 7.0 7.4-10.4 [facility] HospitalWflbxgoHGNIHBMLRR5373-76-82 19:22:00 Test Item Value Reference Range Interpretation Comments RDW (test code = RDW) 16.0 11.5-14.5 [facility] [id number] 19:22:00 Test Item Value Reference Range Interpretation Comments CK MB Index (test 0.8 See_Comment [Automate d message] The code = CK MB Index) system w [facility] generated this result transmit roseann reference range : <=2.5. The reference range was not used to interpr et this result as reggie l/abnormal. [facility]PlusFourSixTIHUTOB1173-01-98 19:22:00 Test Item Value Reference Range Interpretation Comments Troponin-I (test code no gt See_Comment [Auto mated message] The = Troponin-I) system which g enerated this result transmit roseann reference range : <=0.40. The reference r lance was not used to interpr et this result as reggie l/abnormal. [facility] 19:22:00 Test Item Value Reference Range Interpretation Comments Total CK (test code = Total CK) 111 12-191 [facility] HospitalannCARDIAC [id number] 19:22:00 Test Item Value Reference Range Interpretation Comments CK MB (test code = CK MB) 0.9 0.5-3.6 [facility] HospitalHuiyuan [id number] 19:22:00 Test Item Value Reference Range Interpretation Comments eGFR (test code = eGFR) 70 [facility] HospitalHui[facility] [id number] 19:22:00 Test Item Value Reference Range Interpretation Comments Alk Phos (test code = Alk Phos) 87 39-136 [facility] HospitalH[facility] [id number] 19:22:00 Test Item Value Reference Range Interpretation Comments AST (test code = AST) 23 See_Comment [Auto mated message] The system which ge nerated this result transmit roseann reference range : <=37. The reference range was not used to interpr et this result as reggie l/abnormal. [facility] [employer] [id number] 19:22:00 Test Item Value Reference Range Interpretation Comments ALT (test code = ALT) 27 See_Comment [Auto mated message] The system which ge nerated this result transmit roseann reference range : <=65. The reference range was not used to interpr et this result as reggie l/abnormal. [facility] [employer] [id number] 19:22:00 Test Item Value Reference Range Interpretation Comments Albumin Lvl (test code = Albumin Lvl) 3.4 3.5-5.0 [facility] HospitalHui[facility] [id number] 19:22:00 Test Item Value Reference Range Interpretation Comments Total Protein (test code = Total 7.7 6.4-8.4 Protein) [facility] HospitalH[facility] [id number] 19:22:00 Test Item Value Reference Range Interpretation Comments A/G Ratio (test code = A/G Ratio) 0.8 0.7-1.6 [facility] HospitalH[facility] [id number] 19:22:00 Test Item Value Reference Range Interpretation Comments Globulin (test code = Globulin) 4.3 2.0-4.0 [facility] HospitalH[facility] [id number] 19:22:00 Test Item Value Reference Range Interpretation Comments B/C Ratio (test code = B/C Ratio) 6 6-25 [facility]2015-09-21 19:22:00 Test Item Value Reference Range Interpretation Comments AGAP (test code = AGAP) 11.8 10.0-20.0 [facility]2015-09-21 19:22:00 Test Item Value Reference Range Interpretation Comments Bili Total (test code = Bili Total) 0.4 0.2-1.3 [facility]2015-09-21 19:22:00 Test Item Value Reference Range Interpretation Comments Calcium Lvl (test code = Calcium Lvl) 9.2 8.5-10.5 [facility]2015-09-21 19:22:00 Test Item Value Reference Range Interpretation Comments CO2 (test code = CO2) 25 24-32 [facility]2015-09-21 19:22:00 Test Item Value Reference Range Interpretation Comments Glucose Lvl (test code = Glucose Lvl) 88 70-99 [facility]2015-09-21 19:22:00 Test Item Value Reference Range Interpretation Comments Chloride Lvl (test code = Chloride Lvl) 106 95-109 [facility]2015-09-21 19:22:00 Test Item Value Reference Range Interpretation Comments Potassium Lvl (test code = Potassium 4.8 3.5-5.1 Lvl) [facility]2015-09-21 19:22:00 Test Item Value Reference Range Interpretation Comments Sodium Lvl (test code = Sodium Lvl) 138 135-145 [facility]2015-09-21 19:22:00 Test Item Value Reference Range Interpretation Comments Creatinine Lvl (test code = Creatinine 1.2 0.5-1.4 Lvl) [facility]2015-09-21 19:22:00 Test Item Value Reference Range Interpretation Comments BUN (test code = BUN) 7 - [facility]2015-09-21 19:22:00 Test Item Value Reference Range Interpretation Comments Magnesium Lvl (test code = Magnesium 2.0 1.8-2.4 Lvl) [facility] HospitalDoplijeYCWPNQDIOC8527-94-01 19:22:00 Test Item Value Reference Range Interpretation Comments Eosinophils # (test code 0.4 See_Comment [A utomated message] The = Eosinophils #) system ic h generated this result tra nsmitted reference range : <=0.5. The reference r lance was not used to int erpret this result as normal/abnormal . [facility] HospitalPqkhntsGBVJJDOPXO9692-93-39 19:22:00 Test Item Value Reference Range Interpretation Comments Basophils # (test code 0.0 See_Comment [Aut omated message] The = Basophils #) system which generated this result tra nsmitted reference range : <=0.2. The reference r lance was not used to int erpret this result as normal/abnormal . [facility] HospitalUtfwbfbMLDZMQKSUY6812-42-87 19:22:00 Test Item Value Reference Range Interpretation Comments Segs-Bands # (test code = Segs-Bands #) 4.6 1.5-8.1 [facility] HospitalKtaaznjXDSCWUJEOQ4077-69-61 19:22:00 Test Item Value Reference Range Interpretation Comments Monocytes # (test code 0.8 See_Comment [Aut omated message] The = Monocytes #) system which generated this result tra nsmitted reference range : <=0.8. The reference r lance was not used to int erpret this result as normal/abnormal . [facility] HospitalPiwfreqWRASTELYXW8940-18-17 19:22:00 Test Item Value Reference Range Interpretation Comments Monocytes (test code = Monocytes) 10.3 2.0-12.0 [facility] HospitalOavolypKWYDMYHOPA3104-55-03 19:22:00 Test Item Value Reference Range Interpretation Comments Eosinophils (test code = 5.0 See_Comment [A utomated message] The Eosinophils) system which ge nerated this result tra nsmitted reference range : <=4.0. The reference r lance was not used to int erpret this result as normal/abnormal . [facility] HospitalMhkhumaXKOLDQHPMA9798-72-34 19:22:00 Test Item Value Reference Range Interpretation Comments Basophils (test code = 0.4 See_Comment [Aut omated message] The Basophils) system which ge nerated this result tra nsmitted reference range : <=1.0. The reference r lance was not used to int erpret this result as normal/abnormal . [facility] HospitalSkpsnvwUTHAKYHIMB6545-88-20 19:22:00 Test Item Value Reference Range Interpretation Comments Lymphocytes (test code = Lymphocytes) 25.7 20.0-40.0 [facility] HospitalIsykvztHGRZMCOYVK1771-79-58 19:22:00 Test Item Value Reference Range Interpretation Comments Lymphocytes # (test code = Lymphocytes 2.0 1.0-5.5 #) [facility] HospitalEprrjjiLQKRKMSHBJ3254-95-22 19:22:00 Test Item Value Reference Range Interpretation Comments Segs (test code = Segs) 58.6 45.0-75.0 [facility] HospitalMqlijavPPNAIMDMKQ0921-59-85 19:22:00 Test Item Value Reference Range Interpretation Comments INR (test code = INR) 1.00 0.85-1.17 [facility] HospitalBsdopohPVPMZFUUKL4120-12-74 19:22:00 Test Item Value Reference Range Interpretation Comments PT (test code = PT) 13.5 s 12.0-14.7 [facility] HospitalToiltzrUPHFFNMPVK1810-52-35 19:22:00 Test Item Value Reference Range Interpretation Comments PTT (test code = PTT) 33.7 s 22.9-35.8 [place] 433135-09-21 19:22:00 Test Item Value Reference Range Interpretation Comments Platelet (test code = Platelet) 170 133-450 [facility] HospitalNkbjjeiFSZFGJHSIG1920-69-26 19:22:00 Test Item Value Reference Range Interpretation Comments WBC (test code = WBC) 7.8 3.7-10.4 [facility] HospitalYblcanwLGMMWNDASP3518-40-24 19:22:00 Test Item Value Reference Range Interpretation Comments MCH (test code = MCH) 33.3 pg 27.0-31.0 [facility] HospitalLimoutlEQYRTVGVII7380-04-47 19:22:00 Test Item Value Reference Range Interpretation Comments RBC (test code = RBC) 4.62 4.70-6.10 [facility] HospitalWkboppzVEUOBFFRHN6138-16-03 19:22:00 Test Item Value Reference Range Interpretation Comments MCV (test code = MCV) 97.4 80.0-94.0 [facility] HospitalPglbyycJTFISJBFCA5588-27-14 19:22:00 Test Item Value Reference Range Interpretation Comments Hgb (test code = Hgb) 15.4 14.0-18.0 [facility] HospitalFhywnbdTCZFQGRAHU1840-08-78 19:22:00 Test Item Value Reference Range Interpretation Comments Hct (test code = Hct) 45.0 42.0-54.0 [facility] HospitalHoiknraDNCWNUQVZM6209-86-05 19:22:00 Test Item Value Reference Range Interpretation Comments MCHC (test code = MCHC) 34.2 32.0-36.0 [facility] EzuwfioCFWLYQNLEX0161-27-94 19:22:00 Test Item Value Reference Range Interpretation Comments MPV (test code = MPV) 7.0 7.4-10.4 [facility] PubyaynKVGGSYIFJM2975-87-96 19:22:00 Test Item Value Reference Range Interpretation Comments RDW (test code = RDW) 16.0 11.5-14.5 [facility] [id number] 20:10:00 Test Item Value Reference Range Interpretation Comments U Cocaine Scr (test Negative *NA*(01/23/15 code = U Cocaine Scr) 3:10 PM) [facility] [id number] 20:10:00 Test Item Value Reference Range Interpretation Comments U Opiate Scr (test Negative *NA*(01/23/15 code = U Opiate Scr) 3:10 PM) [facility] [id number] 20:10:00 Test Item Value Reference Range Interpretation Comments U Cannab Scr (test Negative *NA*(01/23/15 code = U Cannab Scr) 3:10 PM) [facility] [id number] 20:10:00 Test Item Value Reference Range Interpretation Comments U Phencyc Scr (test Negative *NA*(01/23/15 code = U Phencyc Scr) 3:10 PM) [facility] [id number] 20:10:00 Test Item Value Reference Range Interpretation Comments UDS Note (test code = See Note (01/23/15 3:10 UDS Note) PM) [facility] [id number] 20:10:00 Test Item Value Reference Range Interpretation Comments U Shoshana Scr (test code Negative *NA*(01/23/15 = U Shoshana Scr) 3:10 PM) [facility] [id number] 20:10:00 Test Item Value Reference Range Interpretation Comments U Benzodia Scr (test Positive *ABN*(01/23/15 code = U Benzodia Scr) 3:10 PM) [facility] [id number] 20:10:00 Test Item Value Reference Range Interpretation Comments U Amph Scr (test code Negative *NA*(01/23/15 = U Amph Scr) 3:10 PM) [facility]annUR[facility] AND [id number] 20:10:00 Test Item Value Reference Range Interpretation Comments UA Urobilinogen (test code = UA <=1.0 mg/dL 0.1-1.0 Urobilinogen) [facility] AND [id number] 20:10:00 Test Item Value Reference Range Interpretation Comments UA Glucose (test code = UA Negative mg/dL Glucose) [facility] AND [id number] 20:10:00 Test Item Value Reference Range Interpretation Comments UA Sq Epi (test code = UA Sq Epi) Few /LPF [facility] AND [id number] 20:10:00 Test Item Value Reference Range Interpretation Comments UA Leuk Est (test Negative (01/23/15 3:10 code = UA Leuk Est) PM) [facility] AND [id number] 20:10:00 Test Item Value Reference Range Interpretation Comments UA Nitrite (test code Negative (01/23/15 3:10 = UA Nitrite) PM) [facility] AND [id number] 20:10:00 Test Item Value Reference Range Interpretation Comments UA Bacteria (test code = UA Occasional /HPF Bacteria) [facility] AND [id number] 20:10:00 Test Item Value Reference Range Interpretation Comments UA RBC (test code = 3 See_Comment [Automa roseann message] The UA RBC) system which ge nerated this result transmit roseann reference range : <=2. The reference range was not used to interpr et this result as reggie l/abnormal. [facility] AND [id number] 20:10:00 Test Item Value Reference Range Interpretation Comments UA WBC (test code = no gt See_Comment [Automa roseann message] The UA WBC) system which ge nerated this result transmit roseann reference range : <=5. The reference range was not used to interpr et this result as reggie l/abnormal. [facility] AND [id number] 20:10:00 Test Item Value Reference Range Interpretation Comments UA Hyal Cast (test 5 See_Comment [Automat ed message] The code = UA Hyal Cast) system which generated this result transmit roseann reference range : <=2. The reference range was not used to interpr et this result as reggie l/abnormal. [facility] AND [id number] 20:10:00 Test Item Value Reference Range Interpretation Comments UA Amorph Brisa (test code = Occasional /HPF UA Amorph Brisa) [facility] [id number] 20:10:00 Test Item Value Reference Range Interpretation Comments UA Mucus (test code = UA Mucus) Few /LPF [facility] [id number] 20:10:00 Test Item Value Reference Range Interpretation Comments UA Color (test code = Yellow *NA*(01/23/15 UA Color) 3:10 PM) [facility] [id number] 20:10:00 Test Item Value Reference Range Interpretation Comments UA Protein (test code = UA Protein) 200 mg/dL [facility] [id number] 20:10:00 Test Item Value Reference Range Interpretation Comments UA pH (test code = UA pH) 6.0 5.0-8.0 [facility] [id number] 20:10:00 Test Item Value Reference Range Interpretation Comments UA Spec Grav (test code = UA Spec Grav) 1.017 [facility] [id number] 20:10:00 Test Item Value Reference Range Interpretation Comments UA Turbidity (test code Slight *ABN*(01/23/15 = UA Turbidity) 3:10 PM) [facility] AND [id number] 20:10:00 Test Item Value Reference Range Interpretation Comments UA Blood (test code = Moderate *ABN*(01/23/15 UA Blood) 3:10 PM) [facility] [id number] 20:10:00 Test Item Value Reference Range Interpretation Comments UA Bili (test code = Negative *NA*(01/23/15 UA Bili) 3:10 PM) [facility] [id number] 20:10:00 Test Item Value Reference Range Interpretation Comments UA Ketones (test code = UA Trace mg/dL Ketones) [facility] [id number] 20:10:00 Test Item Value Reference Range Interpretation Comments UA Sperm (test code = UA Occasional /HPF Sperm) [facility] [id number] 20:10:00 Test Item Value Reference Range Interpretation Comments U Cocaine Scr (test Negative *NA*(01/23/15 code = U Cocaine Scr) 3:10 PM) [facility] [id number] 20:10:00 Test Item Value Reference Range Interpretation Comments U Opiate Scr (test Negative *NA*(01/23/15 code = U Opiate Scr) 3:10 PM) [facility] [id number] 20:10:00 Test Item Value Reference Range Interpretation Comments U Cannab Scr (test Negative *NA*(01/23/15 code = U Cannab Scr) 3:10 PM) [facility] [id number] 20:10:00 Test Item Value Reference Range Interpretation Comments U Phencyc Scr (test Negative *NA*(01/23/15 code = U Phencyc Scr) 3:10 PM) [facility] [id number] 20:10:00 Test Item Value Reference Range Interpretation Comments UDS Note (test code = See Note (01/23/15 3:10 UDS Note) PM) [facility] [id number] 20:10:00 Test Item Value Reference Range Interpretation Comments U Shoshana Scr (test code Negative *NA*(01/23/15 = U Shoshana Scr) 3:10 PM) [facility] [id number] 20:10:00 Test Item Value Reference Range Interpretation Comments U Benzodia Scr (test Positive *ABN*(01/23/15 code = U Benzodia Scr) 3:10 PM) [facility] [id number] 20:10:00 Test Item Value Reference Range Interpretation Comments U Amph Scr (test code Negative *NA*(01/23/15 = U Amph Scr) 3:10 PM) [facility] [id number] 20:10:00 Test Item Value Reference Range Interpretation Comments UA Urobilinogen (test code = UA <=1.0 mg/dL 0.1-1.0 Urobilinogen) [facility] [id number] 20:10:00 Test Item Value Reference Range Interpretation Comments UA Glucose (test code = UA Negative mg/dL Glucose) [facility] [id number] 20:10:00 Test Item Value Reference Range Interpretation Comments UA Sq Epi (test code = UA Sq Epi) Few /LPF [facility] [id number] 20:10:00 Test Item Value Reference Range Interpretation Comments UA Leuk Est (test Negative (01/23/15 3:10 code = UA Leuk Est) PM) [facility] AND [id number] 20:10:00 Test Item Value Reference Range Interpretation Comments UA Nitrite (test code Negative (01/23/15 3:10 = UA Nitrite) PM) [facility] AND [id number] 20:10:00 Test Item Value Reference Range Interpretation Comments UA Bacteria (test code = UA Occasional /HPF Bacteria) [facility] AND [id number] 20:10:00 Test Item Value Reference Range Interpretation Comments UA RBC (test code = 3 See_Comment [Automa roseann message] The UA RBC) system which ge nerated this result transmit roseann reference range : <=2. The reference range was not used to interpr et this result as reggie l/abnormal. [facility] AND [id number] 20:10:00 Test Item Value Reference Range Interpretation Comments UA WBC (test code = no gt See_Comment [Automa roseann message] The UA WBC) system which ge nerated this result transmit roseann reference range : <=5. The reference range was not used to interpr et this result as reggie l/abnormal. [facility] AND [id number] 20:10:00 Test Item Value Reference Range Interpretation Comments UA Hyal Cast (test 5 See_Comment [Automat ed message] The code = UA Hyal Cast) system which generated this result transmit roseann reference range : <=2. The reference range was not used to interpr et this result as reggie l/abnormal. [facility] AND [id number] 20:10:00 Test Item Value Reference Range Interpretation Comments UA Amorph Brisa (test code = Occasional /HPF UA Amorph Brisa) [facility] AND [id number] 20:10:00 Test Item Value Reference Range Interpretation Comments UA Mucus (test code = UA Mucus) Few /LPF [facility] AND [id number] 20:10:00 Test Item Value Reference Range Interpretation Comments UA Color (test code = Yellow *NA*(01/23/15 UA Color) 3:10 PM) [facility] AND [id number] 20:10:00 Test Item Value Reference Range Interpretation Comments UA Protein (test code = UA Protein) 200 mg/dL [facility] AND [id number] 20:10:00 Test Item Value Reference Range Interpretation Comments UA pH (test code = UA pH) 6.0 5.0-8.0 [facility] [id number] 20:10:00 Test Item Value Reference Range Interpretation Comments UA Spec Grav (test code = UA Spec Grav) 1.017 [facility] [id number] 20:10:00 Test Item Value Reference Range Interpretation Comments UA Turbidity (test code Slight *ABN*(01/23/15 = UA Turbidity) 3:10 PM) [facility] [id number] 20:10:00 Test Item Value Reference Range Interpretation Comments UA Blood (test code = Moderate *ABN*(01/23/15 UA Blood) 3:10 PM) [facility] [id number] 20:10:00 Test Item Value Reference Range Interpretation Comments UA Bili (test code = Negative *NA*(01/23/15 UA Bili) 3:10 PM) [facility] [id number] 20:10:00 Test Item Value Reference Range Interpretation Comments UA Ketones (test code = UA Trace mg/dL Ketones) [facility] [id number] 20:10:00 Test Item Value Reference Range Interpretation Comments UA Sperm (test code = UA Occasional /HPF Sperm) [facility] [id number] 19:55:00 Test Item Value Reference Range Interpretation Comments CK MB Index (test 0.7 See_Comment [Automate d message] The code = CK MB Index) system w [facility] generated this result transmit roseann reference range : <=2.5. The reference range was not used to interpr et this result as reggie l/abnormal. [facility] [id number] 19:55:00 Test Item Value Reference Range Interpretation Comments Troponin-I (test code no gt See_Comment [Auto mated message] The = Troponin-I) system which g enerated this result transmit roseann reference range : <=0.40. The reference r lance was not used to interpr et this result as reggie l/abnormal. [facility] [id number] 19:55:00 Test Item Value Reference Range Interpretation Comments Total CK (test code = Total CK) 170 12-191 [facility] [id number] 19:55:00 Test Item Value Reference Range Interpretation Comments CK MB (test code = CK MB) 1.2 0.5-3.6 [facility] [id number] 19:55:00 Test Item Value Reference Range Interpretation Comments eGFR (test code = eGFR) 54 [facility] [id number] 19:55:00 Test Item Value Reference Range Interpretation Comments A/G Ratio (test code = A/G Ratio) 1.0 0.7-1.6 [facility] [id number] 19:55:00 Test Item Value Reference Range Interpretation Comments AST (test code = AST) 23 See_Comment [Auto mated message] The system which ge nerated this result transmit roseann reference range : <=37. The reference range was not used to interpr et this result as reggie l/abnormal. [facility] [id number] 19:55:00 Test Item Value Reference Range Interpretation Comments Albumin Lvl (test code = Albumin Lvl) 4.3 3.5-5.0 [facility] [id number] 19:55:00 Test Item Value Reference Range Interpretation Comments ALT (test code = ALT) 39 See_Comment [Auto mated message] The system which ge nerated this result transmit roseann reference range : <=65. The reference range was not used to interpr et this result as reggie l/abnormal. [facility] [id number] 19:55:00 Test Item Value Reference Range Interpretation Comments Total Protein (test code = Total 8.8 6.4-8.4 Protein) [facility] [id number] 19:55:00 Test Item Value Reference Range Interpretation Comments Calcium Lvl (test code = Calcium Lvl) 9.3 8.5-10.5 [facility] [id number] 19:55:00 Test Item Value Reference Range Interpretation Comments AGAP (test code = AGAP) 20.5 10.0-20.0 [facility] [id number] 19:55:00 Test Item Value Reference Range Interpretation Comments Globulin (test code = Globulin) 4.5 2.0-4.0 [facility]2015-08-29 19:55:00 Test Item Value Reference Range Interpretation Comments B/C Ratio (test code = B/C Ratio) 10 6-25 [facility]2015-08-29 19:55:00 Test Item Value Reference Range Interpretation Comments Bili Total (test code = Bili Total) 0.5 0.2-1.3 [facility]2015-08-29 19:55:00 Test Item Value Reference Range Interpretation Comments Alk Phos (test code = Alk Phos) 88 39-136 [facility]2015-08-29 19:55:00 Test Item Value Reference Range Interpretation Comments Potassium Lvl (test code = Potassium 4.5 3.5-5.1 Lvl) [facility]2015-08-29 19:55:00 Test Item Value Reference Range Interpretation Comments Sodium Lvl (test code = Sodium Lvl) 139 135-145 [facility]2015-08-29 19:55:00 Test Item Value Reference Range Interpretation Comments CO2 (test code = CO2) 17 24-32 [facility]2015-08-29 19:55:00 Test Item Value Reference Range Interpretation Comments Chloride Lvl (test code = Chloride Lvl) 106 95-109 [facility]2015-08-29 19:55:00 Test Item Value Reference Range Interpretation Comments Glucose Lvl (test code = Glucose Lvl) 114 70-99 [facility]2015-08-29 19:55:00 Test Item Value Reference Range Interpretation Comments Creatinine Lvl (test code = Creatinine 1.5 0.5-1.4 Lvl) [facility]2015-08-29 19:55:00 Test Item Value Reference Range Interpretation Comments BUN (test code = BUN) 15 7-22 [id number] 19:55:00 Test Item Value Reference Range Interpretation Comments Segs (test code = Segs) 89.7 45.0-75.0 [facility] H[id number] 19:55:00 Test Item Value Reference Range Interpretation Comments Segs-Bands # (test code = Segs-Bands #) 11.6 1.5-8.1 [facility] HospitalTpxhhcwZPTWJOLIZB5523-95-29 19:55:00 Test Item Value Reference Range Interpretation Comments Lymphocytes # (test code = Lymphocytes 0.8 1.0-5.5 #) [facility]LsvycqeAGTCWCHRPI1283-28-92 19:55:00 Test Item Value Reference Range Interpretation Comments Lymphocytes (test code = Lymphocytes) 6.5 20.0-40.0 [place] [id number] 19:55:00 Test Item Value Reference Range Interpretation Comments Monocytes (test code = Monocytes) 3.2 2.0-12.0 [facility] HospitalYsnqtzhUOQBZOUDZY6126-11-29 19:55:00 Test Item Value Reference Range Interpretation Comments Monocytes # (test code 0.4 See_Comment [Aut omated message] The = Monocytes #) system which generated this result tra nsmitted reference range : <=0.8. The reference r lance was not used to int erpret this result as normal/abnormal . [facility] Hos[id number] 19:55:00 Test Item Value Reference Range Interpretation Comments Eosinophils # (test code 0.0 See_Comment [A utomated message] The = Eosinophils #) system [facility] generated this result tra nsmitted reference range : <=0.5. The reference r lance was not used to int erpret this result as normal/abnormal . [facility] [id number] 19:55:00 Test Item Value Reference Range Interpretation Comments Basophils # (test code 0.1 See_Comment [Aut omated message] The = Basophils #) system which generated this result tra nsmitted reference range : <=0.2. The reference r lance was not used to int erpret this result as normal/abnormal . [facility] H[id number] 19:55:00 Test Item Value Reference Range Interpretation Comments Eosinophils (test code = 0.2 See_Comment [A utomated message] The Eosinophils) system which ge nerated this result tra nsmitted reference range : <=4.0. The reference r lance was not used to int erpret this result as normal/abnormal . [facility] HospitalMfyfguqABTSMZZOZP3098-12-82 19:55:00 Test Item Value Reference Range Interpretation Comments Basophils (test code = 0.4 See_Comment [Aut omated message] The Basophils) system which ge nerated this result tra nsmitted reference range : <=1.0. The reference r lance was not used to int erpret this result as normal/abnormal . [facility] HospitalNsujvptYMIADPLNIT2089-42-13 19:55:00 Test Item Value Reference Range Interpretation Comments PT (test code = PT) 14.2 s 12.0-14.7 [facility] HospitalJzfipdnXMOXZVZNVV3433-71-75 19:55:00 Test Item Value Reference Range Interpretation Comments INR (test code = INR) 1.07 0.85-1.17 [facility] HospitalSknaftaEOKYRVASNQ0969-59-43 19:55:00 Test Item Value Reference Range Interpretation Comments PTT (test code = PTT) 31.2 s 22.9-35.8 [facility] HospitalAnmcqadQQPNZMYXCX4416-27-89 19:55:00 Test Item Value Reference Range Interpretation Comments MPV (test code = MPV) 8.3 7.4-10.4 [facility] HospitalYrajgwpGEEGYUIEAP6894-32-09 19:55:00 Test Item Value Reference Range Interpretation Comments MCHC (test code = MCHC) 32.8 32.0-36.0 [facility] HospitalNialuaePCFZBOTYAE5157-80-25 19:55:00 Test Item Value Reference Range Interpretation Comments RDW (test code = RDW) 17.0 11.5-14.5 [facility] HospitalYfffhbiKENMSZTFMP1116-82-61 19:55:00 Test Item Value Reference Range Interpretation Comments Platelet (test code = Platelet) 202 133-450 [facility] HospitalOgjgeftOVXRAZUBUO9078-00-38 19:55:00 Test Item Value Reference Range Interpretation Comments Hct (test code = Hct) 51.7 42.0-54.0 [facility] HospitalKuwgsfySDCIUUBDXB9455-43-22 19:55:00 Test Item Value Reference Range Interpretation Comments MCV (test code = MCV) 97.9 80.0-94.0 [facility] HospitalJidyfsqKVBMBPVZYX9005-78-94 19:55:00 Test Item Value Reference Range Interpretation Comments MCH (test code = MCH) 32.1 pg 27.0-31.0 [facility] HospitalAjgzhjkZDBVIRQUON4939-16-70 19:55:00 Test Item Value Reference Range Interpretation Comments Hgb (test code = Hgb) 17.0 14.0-18.0 [facility] HospitalSutohgmNERGWCKEWI9498-48-59 19:55:00 Test Item Value Reference Range Interpretation Comments WBC (test code = WBC) 12.9 3.7-10.4 [place] 433135-08-29 19:55:00 Test Item Value Reference Range Interpretation Comments RBC (test code = RBC) 5.28 4.70-6.10 [facility] HospitalWjhljtkQXTXJLQPMN4023-84-39 19:55:00 Test Item Value Reference Range Interpretation Comments Etoh (%) (test code = Etoh (%)) no gt [facility] HospitalOlucomdYEPYZCSYQH9899-55-33 19:55:00 Test Item Value Reference Range Interpretation Comments Ethanol Lvl (test code = Ethanol Lvl) no gt [facility] Compliance AssuranceannCARDIAC [id number] 19:55:00 Test Item Value Reference Range Interpretation Comments CK MB Index (test 0.7 See_Comment [Automate d message] The code = CK MB Index) system w hich generated this result transmit roseann reference range : <=2.5. The reference range was not used to interpr et this result as reggie l/abnormal. [facility]8aweek2015-08-29 19:55:00 Test Item Value Reference Range Interpretation Comments Troponin-I (test code no gt See_Comment [Auto mated message] The = Troponin-I) system which g enerated this result transmit roseann reference range : <=0.40. The reference r lance was not used to interpr et this result as reggie l/abnormal. [facility] hereO [id number] 19:55:00 Test Item Value Reference Range Interpretation Comments Total CK (test code = Total CK) 170 12-191 [facility] hereO [id number] 19:55:00 Test Item Value Reference Range Interpretation Comments CK MB (test code = CK MB) 1.2 0.5-3.6 [facility] [employer] [id number] 19:55:00 Test Item Value Reference Range Interpretation Comments eGFR (test code = eGFR) 54 [facility] [employer] [id number] 19:55:00 Test Item Value Reference Range Interpretation Comments A/G Ratio (test code = A/G Ratio) 1.0 0.7-1.6 [facility] [employer] [id number] 19:55:00 Test Item Value Reference Range Interpretation Comments AST (test code = AST) 23 See_Comment [Auto mated message] The system which ge nerated this result transmit roseann reference range : <=37. The reference range was not used to interpr et this result as reggie l/abnormal. [facility] [id number] 19:55:00 Test Item Value Reference Range Interpretation Comments Albumin Lvl (test code = Albumin Lvl) 4.3 3.5-5.0 [facility]2015-08-29 19:55:00 Test Item Value Reference Range Interpretation Comments ALT (test code = ALT) 39 See_Comment [Auto mated message] The system which ge nerated this result transmit roseann reference range : <=65. The reference range was not used to interpr et this result as reggie l/abnormal. [facility]2015-08-29 19:55:00 Test Item Value Reference Range Interpretation Comments Total Protein (test code = Total 8.8 6.4-8.4 Protein) [facility]2015-08-29 19:55:00 Test Item Value Reference Range Interpretation Comments Calcium Lvl (test code = Calcium Lvl) 9.3 8.5-10.5 [facility]2015-08-29 19:55:00 Test Item Value Reference Range Interpretation Comments AGAP (test code = AGAP) 20.5 10.0-20.0 [facility]2015-08-29 19:55:00 Test Item Value Reference Range Interpretation Comments Globulin (test code = Globulin) 4.5 2.0-4.0 [facility]2015-08-29 19:55:00 Test Item Value Reference Range Interpretation Comments B/C Ratio (test code = B/C Ratio) 10 6-25 [facility] [id number] 19:55:00 Test Item Value Reference Range Interpretation Comments Bili Total (test code = Bili Total) 0.5 0.2-1.3 [facility]Hui[facility] [id number] 19:55:00 Test Item Value Reference Range Interpretation Comments Alk Phos (test code = Alk Phos) 88 39-136 [facility]2015-08-29 19:55:00 Test Item Value Reference Range Interpretation Comments Potassium Lvl (test code = Potassium 4.5 3.5-5.1 Lvl) [facility]2015-08-29 19:55:00 Test Item Value Reference Range Interpretation Comments Sodium Lvl (test code = Sodium Lvl) 139 135-145 [facility]2015-08-29 19:55:00 Test Item Value Reference Range Interpretation Comments CO2 (test code = CO2) 17 24-32 [facility]2015-08-29 19:55:00 Test Item Value Reference Range Interpretation Comments Chloride Lvl (test code = Chloride Lvl) 106 95-109 [facility]2015-08-29 19:55:00 Test Item Value Reference Range Interpretation Comments Glucose Lvl (test code = Glucose Lvl) 114 70-99 [facility]2015-08-29 19:55:00 Test Item Value Reference Range Interpretation Comments Creatinine Lvl (test code = Creatinine 1.5 0.5-1.4 Lvl) [facility]2015-08-29 19:55:00 Test Item Value Reference Range Interpretation Comments BUN (test code = BUN) 15 7-22 [facility]XghtjuoWAUNJLQQVZ9454-61-59 19:55:00 Test Item Value Reference Range Interpretation Comments Segs (test code = Segs) 89.7 45.0-75.0 [facility] HospitalZxepzvxMIVXSMMTMY5539-15-41 19:55:00 Test Item Value Reference Range Interpretation Comments Segs-Bands # (test code = Segs-Bands #) 11.6 1.5-8.1 [facility] HospitalAamjusmKJBAXUYDMR3214-84-35 19:55:00 Test Item Value Reference Range Interpretation Comments Lymphocytes # (test code = Lymphocytes 0.8 1.0-5.5 #) [facility] HospitalLwhounpXVRDUQQFFD4380-36-96 19:55:00 Test Item Value Reference Range Interpretation Comments Lymphocytes (test code = Lymphocytes) 6.5 20.0-40.0 [facility] HospitalOhpkcqtWGLKPNGCCY3326-57-91 19:55:00 Test Item Value Reference Range Interpretation Comments Monocytes (test code = Monocytes) 3.2 2.0-12.0 [facility] HospitalCtzaqrrLKIARTYYWJ6411-75-86 19:55:00 Test Item Value Reference Range Interpretation Comments Monocytes # (test code 0.4 See_Comment [Aut omated message] The = Monocytes #) system which generated this result tra nsmitted reference range : <=0.8. The reference r lance was not used to int erpret this result as normal/abnormal . [place] 433135-08-29 19:55:00 Test Item Value Reference Range Interpretation Comments Eosinophils # (test code 0.0 See_Comment [A utomated message] The = Eosinophils #) system whic h generated this result tra nsmitted reference range : <=0.5. The reference r lance was not used to int erpret this result as normal/abnormal . [facility] HospitalKghenvmJLFDUEWVHG4284-96-42 19:55:00 Test Item Value Reference Range Interpretation Comments Basophils # (test code 0.1 See_Comment [Aut omated message] The = Basophils #) system which generated this result tra nsmitted reference range : <=0.2. The reference r lance was not used to int erpret this result as normal/abnormal . [facility] HospitalYhmtfwlNTJWYZEWHO4328-71-63 19:55:00 Test Item Value Reference Range Interpretation Comments Eosinophils (test code = 0.2 See_Comment [A utomated message] The Eosinophils) system which ge nerated this result tra nsmitted reference range : <=4.0. The reference r lance was not used to int erpret this result as normal/abnormal . [facility] HospitalUscllrgPEWBIYDUHC1966-06-29 19:55:00 Test Item Value Reference Range Interpretation Comments Basophils (test code = 0.4 See_Comment [Aut omated message] The Basophils) system which ge nerated this result tra nsmitted reference range : <=1.0. The reference r lance was not used to int erpret this result as normal/abnormal . [facility] HospitalEalwzytUBJSIRFXSG1171-59-87 19:55:00 Test Item Value Reference Range Interpretation Comments PT (test code = PT) 14.2 s 12.0-14.7 [facility] HospitalPowtmktORDTILIBRE7191-08-23 19:55:00 Test Item Value Reference Range Interpretation Comments INR (test code = INR) 1.07 0.85-1.17 [facility] HospitalKbyepurXDCJFERWXA1823-30-26 19:55:00 Test Item Value Reference Range Interpretation Comments PTT (test code = PTT) 31.2 s 22.9-35.8 [facility] HospitalRcbmoirYOWOXJCFLH0114-26-35 19:55:00 Test Item Value Reference Range Interpretation Comments MPV (test code = MPV) 8.3 7.4-10.4 [facility] HospitalGxzgmorLTETORDQFT6049-39-52 19:55:00 Test Item Value Reference Range Interpretation Comments MCHC (test code = MCHC) 32.8 32.0-36.0 [facility] HospitalKpakvydQBFLVCQCMZ7211-07-83 19:55:00 Test Item Value Reference Range Interpretation Comments RDW (test code = RDW) 17.0 11.5-14.5 [facility] HospitalUfgwrqrAYYMUUSBLC4239-54-88 19:55:00 Test Item Value Reference Range Interpretation Comments Platelet (test code = Platelet) 202 133-450 [facility] HospitalIgjyefcBIENJBSASM2862-02-36 19:55:00 Test Item Value Reference Range Interpretation Comments Hct (test code = Hct) 51.7 42.0-54.0 [facility] HospitalNeavszaNIVQEUHKYU0761-70-69 19:55:00 Test Item Value Reference Range Interpretation Comments MCV (test code = MCV) 97.9 80.0-94.0 [facility] HospitalOjzvtfoUCZKTFQHTC0512-52-32 19:55:00 Test Item Value Reference Range Interpretation Comments MCH (test code = MCH) 32.1 pg 27.0-31.0 [facility] [facility]MDKZ3971-90-76 19:55:00 Test Item Value Reference Range Interpretation Comments Hgb (test code = Hgb) 17.0 14.0-18.0 [facility]DRFWQQNWRR8632-20-04 19:55:00 Test Item Value Reference Range Interpretation Comments WBC (test code = WBC) 12.9 3.7-10.4 [facility]YklknakMSLBQCIAEK4008-23-40 19:55:00 Test Item Value Reference Range Interpretation Comments RBC (test code = RBC) 5.28 4.70-6.10 [facility]nfQCSHMTDPHR2581-90-20 19:55:00 Test Item Value Reference Range Interpretation Comments Etoh (%) (test code = Etoh (%)) no gt [facility]DhsjuipLKHSVQSFYQ2448-79-35 19:55:00 Test Item Value Reference Range Interpretation Comments Ethanol Lvl (test code = Ethanol Lvl) no gt [facility] WOXZI9455-93-14 17:07:00 Test Item Value Reference Range Interpretation Comments eGFR (test code = eGFR) 71 [facility] [id number] 17:07:00 Test Item Value Reference Range Interpretation Comments Bili Total (test code = Bili Total) 0.3 0.2-1.3 [facility]2014-06-26 17:07:00 Test Item Value Reference Range Interpretation Comments AST (test code = AST) 18 See_Comment [Auto mated message] The system which ge nerated this result transmit roseann reference range : <=37. The reference range was not used to interpr et this result as reggie l/abnormal. [facility]2014-06-26 17:07:00 Test Item Value Reference Range Interpretation Comments Alk Phos (test code = Alk Phos) 88 39-136 [facility]2014-06-26 17:07:00 Test Item Value Reference Range Interpretation Comments ALT (test code = ALT) 36 See_Comment [Auto mated message] The system which ge nerated this result transmit roseann reference range : <=65. The reference range was not used to interpr et this result as reggie l/abnormal. [facility]2014-06-26 17:07:00 Test Item Value Reference Range Interpretation Comments Albumin Lvl (test code = Albumin Lvl) 4.0 3.5-5.0 [facility]2014-06-26 17:07:00 Test Item Value Reference Range Interpretation Comments Total Protein (test code = Total 8.8 6.4-8.4 Protein) [facility]2014-06-26 17:07:00 Test Item Value Reference Range Interpretation Comments CO2 (test code = CO2) 22 24-32 [facility]2014-06-26 17:07:00 Test Item Value Reference Range Interpretation Comments Calcium Lvl (test code = Calcium Lvl) 9.5 8.5-10.5 [facility]2014-06-26 17:07:00 Test Item Value Reference Range Interpretation Comments Chloride Lvl (test code = Chloride Lvl) 103 95-109 [place] 443744-06-26 17:07:00 Test Item Value Reference Range Interpretation Comments Sodium Lvl (test code = Sodium Lvl) 135 135-145 [facility]2014-06-26 17:07:00 Test Item Value Reference Range Interpretation Comments Potassium Lvl (test code = Potassium 4.2 3.5-5.1 Lvl) [place] 443744-06-26 17:07:00 Test Item Value Reference Range Interpretation Comments Creatinine Lvl (test code = Creatinine 1.2 0.5-1.4 Lvl) [facility]2014-06-26 17:07:00 Test Item Value Reference Range Interpretation Comments Glucose Lvl (test code = Glucose Lvl) 110 70-99 [facility]2014-06-26 17:07:00 Test Item Value Reference Range Interpretation Comments BUN (test code = BUN) 7 7-22 [place] 443744-06-26 17:07:00 Test Item Value Reference Range Interpretation Comments Globulin (test code = Globulin) 4.8 2.0-4.0 [place] 443744-06-26 17:07:00 Test Item Value Reference Range Interpretation Comments A/G Ratio (test code = A/G Ratio) 0.8 0.7-1.6 [facility]2014-06-26 17:07:00 Test Item Value Reference Range Interpretation Comments B/C Ratio (test code = B/C Ratio) 6 6-25 [place] 443744-06-26 17:07:00 Test Item Value Reference Range Interpretation Comments AGAP (test code = AGAP) 14.2 10.0-20.0 [facility] HospitalDkijuvoLMWLIYSSYB6662-38-18 17:07:00 Test Item Value Reference Range Interpretation Comments Eosinophils (test code = 3.2 See_Comment [A utomated message] The Eosinophils) system which ge nerated this result tra nsmitted reference range : <=4.0. The reference r lance was not used to int erpret this result as normal/abnormal . [facility] HospitalVdyiywbTQLAFFXAHX6759-85-17 17:07:00 Test Item Value Reference Range Interpretation Comments Lymphocytes (test code = Lymphocytes) 16.7 20.0-40.0 [facility] HospitalOnxcflsRRJLTODGXY5903-42-70 17:07:00 Test Item Value Reference Range Interpretation Comments Monocytes (test code = Monocytes) 6.2 2.0-12.0 [facility] HospitalEajejeaTSUXWFWKGW2032-21-51 17:07:00 Test Item Value Reference Range Interpretation Comments Segs (test code = Segs) 73.3 45.0-75.0 [place] 433134-06-26 17:07:00 Test Item Value Reference Range Interpretation Comments Basophils (test code = 0.6 See_Comment [Aut omated message] The Basophils) system which ge nerated this result tra nsmitted reference range : <=1.0. The reference r lance was not used to int erpret this result as normal/abnormal . [facility] HospitalYrdsuahOBBGIHESVY4801-88-47 17:07:00 Test Item Value Reference Range Interpretation Comments Basophils # (test code 0.1 See_Comment [Aut omated message] The = Basophils #) system which generated this result tra nsmitted reference range : <=0.2. The reference r lance was not used to int erpret this result as normal/abnormal . [facility] HospitalClbnrjfALWZMSXRGJ8759-25-13 17:07:00 Test Item Value Reference Range Interpretation Comments Eosinophils # (test code 0.3 See_Comment [A utomated message] The = Eosinophils #) system whic h generated this result tra nsmitted reference range : <=0.5. The reference r lance was not used to int erpret this result as normal/abnormal . [facility] HospitalLnkmgafFSQVKFOOGC3050-76-31 17:07:00 Test Item Value Reference Range Interpretation Comments Monocytes # (test code 0.6 See_Comment [Aut omated message] The = Monocytes #) system which generated this result tra nsmitted reference range : <=0.8. The reference r lance was not used to int erpret this result as normal/abnormal . [facility] HospitalAmmrvnaTYSLTSLRKU9635-63-18 17:07:00 Test Item Value Reference Range Interpretation Comments Lymphocytes # (test code = Lymphocytes 1.6 1.0-5.5 #) [facility] HospitalHgdhihvXWXUHQVZMQ7520-84-05 17:07:00 Test Item Value Reference Range Interpretation Comments Segs-Bands # (test code = Segs-Bands #) 6.8 1.5-8.1 [facility] HospitalYqahfaeFTZROXNTRJ8989-83-06 17:07:00 Test Item Value Reference Range Interpretation Comments Platelet (test code = Platelet) 170 133-450 [facility] HospitalWpgoxlrCRPEDDGAXY8166-33-16 17:07:00 Test Item Value Reference Range Interpretation Comments MPV (test code = MPV) 7.6 7.4-10.4 [facility] HospitalLzvvdizWJUVEVPMBL0197-58-84 17:07:00 Test Item Value Reference Range Interpretation Comments MCHC (test code = MCHC) 33.8 32.0-36.0 [facility] HospitalFccxfpbXSRQEVRKNI2056-09-14 17:07:00 Test Item Value Reference Range Interpretation Comments RDW (test code = RDW) 14.2 11.5-14.5 [facility] HospitalZxxfaquAPKWNTGLPV2622-94-76 17:07:00 Test Item Value Reference Range Interpretation Comments MCH (test code = MCH) 33.1 pg 27.0-31.0 [facility] HospitalActiresNVKOFQEYXT7540-77-64 17:07:00 Test Item Value Reference Range Interpretation Comments MCV (test code = MCV) 97.9 80.0-94.0 [facility] HospitalAdqjzrxQYHKFGPUUB8504-96-44 17:07:00 Test Item Value Reference Range Interpretation Comments Hgb (test code = Hgb) 14.2 14.0-18.0 [facility] HospitalPxyhuswFYWCJMRWUZ0527-50-36 17:07:00 Test Item Value Reference Range Interpretation Comments Hct (test code = Hct) 42.1 42.0-54.0 [facility] HospitalTtsxsipHYOIXFZRHB7623-88-23 17:07:00 Test Item Value Reference Range Interpretation Comments WBC (test code = WBC) 9.3 3.7-10.4 [facility] HospitalPbfjbcqKFCVETPKQE8943-25-05 17:07:00 Test Item Value Reference Range Interpretation Comments RBC (test code = RBC) 4.30 4.70-6.10 [place] 69005014-06-26 17:07:00 Test Item Value Reference Range Interpretation Comments Vanco Tr TND (test code = Vanco Tr unknown TND) [place] 69005014-06-26 17:07:00 Test Item Value Reference Range Interpretation Comments Vanco Tr (test code = Vanco Tr) 7.7 [facility]2014-06-26 17:07:00 Test Item Value Reference Range Interpretation Comments eGFR (test code = eGFR) 71 [facility]2014-06-26 17:07:00 Test Item Value Reference Range Interpretation Comments Bili Total (test code = Bili Total) 0.3 0.2-1.3 [facility]2014-06-26 17:07:00 Test Item Value Reference Range Interpretation Comments AST (test code = AST) 18 See_Comment [Auto mated message] The system which ge nerated this result transmit roseann reference range : <=37. The reference range was not used to interpr et this result as reggie l/abnormal. [facility]2014-06-26 17:07:00 Test Item Value Reference Range Interpretation Comments Alk Phos (test code = Alk Phos) 88 39-136 [facility]2014-06-26 17:07:00 Test Item Value Reference Range Interpretation Comments ALT (test code = ALT) 36 See_Comment [Auto mated message] The system which ge nerated this result transmit roseann reference range : <=65. The reference range was not used to interpr et this result as reggie l/abnormal. [facility]2014-06-26 17:07:00 Test Item Value Reference Range Interpretation Comments Albumin Lvl (test code = Albumin Lvl) 4.0 3.5-5.0 [facility]2014-06-26 17:07:00 Test Item Value Reference Range Interpretation Comments Total Protein (test code = Total 8.8 6.4-8.4 Protein) [facility]2014-06-26 17:07:00 Test Item Value Reference Range Interpretation Comments CO2 (test code = CO2) 22 24-32 [facility]2014-06-26 17:07:00 Test Item Value Reference Range Interpretation Comments Calcium Lvl (test code = Calcium Lvl) 9.5 8.5-10.5 [facility]2014-06-26 17:07:00 Test Item Value Reference Range Interpretation Comments Chloride Lvl (test code = Chloride Lvl) 103 95-109 [facility]2014-06-26 17:07:00 Test Item Value Reference Range Interpretation Comments Sodium Lvl (test code = Sodium Lvl) 135 135-145 [facility]2014-06-26 17:07:00 Test Item Value Reference Range Interpretation Comments Potassium Lvl (test code = Potassium 4.2 3.5-5.1 Lvl) [facility]2014-06-26 17:07:00 Test Item Value Reference Range Interpretation Comments Creatinine Lvl (test code = Creatinine 1.2 0.5-1.4 Lvl) [facility]2014-06-26 17:07:00 Test Item Value Reference Range Interpretation Comments Glucose Lvl (test code = Glucose Lvl) 110 70-99 [facility]2014-06-26 17:07:00 Test Item Value Reference Range Interpretation Comments BUN (test code = BUN) 7 7-22 [facility]2014-06-26 17:07:00 Test Item Value Reference Range Interpretation Comments Globulin (test code = Globulin) 4.8 2.0-4.0 [place] 443744-06-26 17:07:00 Test Item Value Reference Range Interpretation Comments A/G Ratio (test code = A/G Ratio) 0.8 0.7-1.6 [facility]2014-06-26 17:07:00 Test Item Value Reference Range Interpretation Comments B/C Ratio (test code = B/C Ratio) 6 6-25 [facility]2014-06-26 17:07:00 Test Item Value Reference Range Interpretation Comments AGAP (test code = AGAP) 14.2 10.0-20.0 [facility] HospitalMomftdsTMGDVSOLDM8524-12-41 17:07:00 Test Item Value Reference Range Interpretation Comments Eosinophils (test code = 3.2 See_Comment [A utomated message] The Eosinophils) system which ge nerated this result tra nsmitted reference range : <=4.0. The reference r lance was not used to int erpret this result as normal/abnormal . [facility] HospitalOpgclxeCFSWHMXBAG6160-88-61 17:07:00 Test Item Value Reference Range Interpretation Comments Lymphocytes (test code = Lymphocytes) 16.7 20.0-40.0 [facility] HospitalZflzinfQCZVAZMHHE3315-78-17 17:07:00 Test Item Value Reference Range Interpretation Comments Monocytes (test code = Monocytes) 6.2 2.0-12.0 [facility] HospitalYvjjwyaZPOICJGLPI8525-35-73 17:07:00 Test Item Value Reference Range Interpretation Comments Segs (test code = Segs) 73.3 45.0-75.0 [facility] HospitalVlinpqsVQIYDMDBQX2831-89-55 17:07:00 Test Item Value Reference Range Interpretation Comments Basophils (test code = 0.6 See_Comment [Aut omated message] The Basophils) system which ge nerated this result tra nsmitted reference range : <=1.0. The reference r lance was not used to int erpret this result as normal/abnormal . [facility] HospitalAukuycqMAPMQBTAYU9781-98-84 17:07:00 Test Item Value Reference Range Interpretation Comments Basophils # (test code 0.1 See_Comment [Aut omated message] The = Basophils #) system which generated this result tra nsmitted reference range : <=0.2. The reference r lance was not used to int erpret this result as normal/abnormal . [facility] HospitalQdczdnvVSCNISXMDZ0856-36-94 17:07:00 Test Item Value Reference Range Interpretation Comments Eosinophils # (test code 0.3 See_Comment [A utomated message] The = Eosinophils #) system whic h generated this result tra nsmitted reference range : <=0.5. The reference r lance was not used to int erpret this result as normal/abnormal . [facility] HospitalLwujbcaYVSFTCDGGP8333-92-73 17:07:00 Test Item Value Reference Range Interpretation Comments Monocytes # (test code 0.6 See_Comment [Aut omated message] The = Monocytes #) system which generated this result tra nsmitted reference range : <=0.8. The reference r lance was not used to int erpret this result as normal/abnormal . [facility] HospitalGwbfkzxPWFAUEGAAS2128-60-81 17:07:00 Test Item Value Reference Range Interpretation Comments Lymphocytes # (test code = Lymphocytes 1.6 1.0-5.5 #) [facility] HospitalCljkpxeAIDAOQUSIC7789-59-38 17:07:00 Test Item Value Reference Range Interpretation Comments Segs-Bands # (test code = Segs-Bands #) 6.8 1.5-8.1 [facility] HospitalUsssyszASXSHPGQLO6903-99-70 17:07:00 Test Item Value Reference Range Interpretation Comments Platelet (test code = Platelet) 170 133-450 [facility] HospitalUpkpwceKIIDYEHRYL1829-87-07 17:07:00 Test Item Value Reference Range Interpretation Comments MPV (test code = MPV) 7.6 7.4-10.4 [facility] HospitalIgqxbymOJGACHMAWY8290-22-25 17:07:00 Test Item Value Reference Range Interpretation Comments MCHC (test code = MCHC) 33.8 32.0-36.0 [facility] HospitalNoljjzuTJFZBUDTEG3350-16-98 17:07:00 Test Item Value Reference Range Interpretation Comments RDW (test code = RDW) 14.2 11.5-14.5 [facility] HospitalBdaulhdHUGLFZNUVX5848-34-32 17:07:00 Test Item Value Reference Range Interpretation Comments MCH (test code = MCH) 33.1 pg 27.0-31.0 [facility]XdkkmndLADAJZEBXJ1413-43-81 17:07:00 Test Item Value Reference Range Interpretation Comments MCV (test code = MCV) 97.9 80.0-94.0 [facility] HospitalJjksjgiIHTBABVGHO1443-64-00 17:07:00 Test Item Value Reference Range Interpretation Comments Hgb (test code = Hgb) 14.2 14.0-18.0 [facility] HospitalKwiifffMQAZZJXBHG5242-65-49 17:07:00 Test Item Value Reference Range Interpretation Comments Hct (test code = Hct) 42.1 42.0-54.0 [facility] HospitalVubuoszJSKXSMQTQQ5718-74-41 17:07:00 Test Item Value Reference Range Interpretation Comments WBC (test code = WBC) 9.3 3.7-10.4 [facility] HospitalBtwbrxvIYLNIJEQAG3964-75-08 17:07:00 Test Item Value Reference Range Interpretation Comments RBC (test code = RBC) 4.30 4.70-6.10 [facility]YlzlevcRPTRDWCNLM2036-29-51 17:07:00 Test Item Value Reference Range Interpretation Comments Vanco Tr TND (test code = Vanco Tr unknown TND) [facility]IsrbxhgHMTKNQWWHS0767-70-42 17:07:00 Test Item Value Reference Range Interpretation Comments Vanco Tr (test code = Vanco Tr) 7.7 [facility] ORLYQ9482-08-82 19:25:00 Test Item Value Reference Range Interpretation Comments eGFR (test code = eGFR) 47 [facility] AAMWU9882-22-24 19:25:00 Test Item Value Reference Range Interpretation Comments Creatinine Lvl (test code = Creatinine 1.7 0.5-1.4 Lvl) [facility]CHEM ZWYHZ7714-56-57 19:25:00 Test Item Value Reference Range Interpretation Comments BUN (test code = BUN) 14 7-22 [facility]GgwxazvBKWFMAZDDEWD6485-16-26 19:25:00 Test Item Value Reference Range Interpretation Comments Potassium Lvl (test code = Potassium 4.3 3.5-5.1 Lvl) [facility] HospitalNjjxclgBFMJPFSCZY9101-76-58 19:25:00 Test Item Value Reference Range Interpretation Comments Hct (test code = Hct) 36.8 42.0-54.0 [facility] HospitalFvaipemAGUMIBSHCP6096-85-28 19:25:00 Test Item Value Reference Range Interpretation Comments MCV (test code = MCV) 97.6 80.0-94.0 [facility] HospitalDakmzfiNTCYLECAYV9103-26-12 19:25:00 Test Item Value Reference Range Interpretation Comments MCH (test code = MCH) 33.2 pg 27.0-31.0 [facility] HospitalSajtvxoYOWZOSYRKJ1957-39-41 19:25:00 Test Item Value Reference Range Interpretation Comments Hgb (test code = Hgb) 12.5 14.0-18.0 [facility] HospitalHcjwvdnSSCJPSSMTU6526-01-80 19:25:00 Test Item Value Reference Range Interpretation Comments WBC (test code = WBC) 7.7 3.7-10.4 [facility] HospitalPrhgplqGVUETXMCYZ7465-26-90 19:25:00 Test Item Value Reference Range Interpretation Comments RBC (test code = RBC) 3.77 4.70-6.10 [facility]XmlgtapPOXYAWEKXB9325-05-44 19:25:00 Test Item Value Reference Range Interpretation Comments RDW (test code = RDW) 14.0 11.5-14.5 [facility] HospitalIcdnoxfQOVKMZPFWA3025-88-07 19:25:00 Test Item Value Reference Range Interpretation Comments Platelet (test code = Platelet) 155 133-450 [facility] HospitalMiiclwdBGVROFZJWE0416-58-73 19:25:00 Test Item Value Reference Range Interpretation Comments MPV (test code = MPV) 7.7 7.4-10.4 [facility] HospitalGlwqwdxOQKMOYJIXW9035-05-99 19:25:00 Test Item Value Reference Range Interpretation Comments MCHC (test code = MCHC) 34.0 32.0-36.0 [facility] HospitalMyowunhKRHWNOTOAK0591-23-77 19:25:00 Test Item Value Reference Range Interpretation Comments Segs-Bands # (test code = Segs-Bands #) 5.7 1.5-8.1 [facility] HospitalDketffcZCTSJHHHLI6101-67-79 19:25:00 Test Item Value Reference Range Interpretation Comments Eosinophils (test code = 4.3 See_Comment [A utomated message] The Eosinophils) system which ge nerated this result tra nsmitted reference range : <=4.0. The reference r lance was not used to int erpret this result as normal/abnormal . [facility] HospitalArwmoxgRXLEAQTXKA6518-91-43 19:25:00 Test Item Value Reference Range Interpretation Comments Basophils # (test code 0.0 See_Comment [Aut omated message] The = Basophils #) system which generated this result tra nsmitted reference range : <=0.2. The reference r lance was not used to int erpret this result as normal/abnormal . [facility] HospitalLthlnsdBSHXTJJNQG3122-11-38 19:25:00 Test Item Value Reference Range Interpretation Comments Basophils (test code = 0.3 See_Comment [Aut omated message] The Basophils) system which ge nerated this result tra nsmitted reference range : <=1.0. The reference r lance was not used to int erpret this result as normal/abnormal . [facility] HospitalOlczxdxSNEVKTVCVO9095-25-29 19:25:00 Test Item Value Reference Range Interpretation Comments Monocytes (test code = Monocytes) 5.1 2.0-12.0 [facility] HospitalXzbygfeRDXVRHAXZG7943-23-50 19:25:00 Test Item Value Reference Range Interpretation Comments Lymphocytes (test code = Lymphocytes) 16.3 20.0-40.0 [facility] HospitalRgtilwcXKCLLHEUHQ4777-66-08 19:25:00 Test Item Value Reference Range Interpretation Comments Lymphocytes # (test code = Lymphocytes 1.2 1.0-5.5 #) [facility] HospitalFwrcjbdDMVPAALOHX3916-11-24 19:25:00 Test Item Value Reference Range Interpretation Comments Eosinophils # (test code 0.3 See_Comment [A utomated message] The = Eosinophils #) system whic h generated this result tra nsmitted reference range : <=0.5. The reference r lance was not used to int erpret this result as normal/abnormal . [facility] HospitalBycgcklBWHAYNOSOW6449-71-19 19:25:00 Test Item Value Reference Range Interpretation Comments Monocytes # (test code 0.4 See_Comment [Aut omated message] The = Monocytes #) system which generated this result tra nsmitted reference range : <=0.8. The reference r lance was not used to int erpret this result as normal/abnormal . [facility] HospitalOtefgemGWGURVQBVD6232-84-66 19:25:00 Test Item Value Reference Range Interpretation Comments Segs (test code = Segs) 74.0 45.0-75.0 [facility]TzxfpckQSZQSSXTHV8654-31-34 19:25:00 Test Item Value Reference Range Interpretation Comments Vanco Tr TND (test code = Vanco Tr unknown TND) [facility]KcncqgpCLVFKSCAOI1272-17-85 19:25:00 Test Item Value Reference Range Interpretation Comments Vanco Tr (test code = Vanco Tr) 24.4 [facility] MBWMZ1328-68-08 19:25:00 Test Item Value Reference Range Interpretation Comments eGFR (test code = eGFR) 47 [facility] UVVKD2522-20-89 19:25:00 Test Item Value Reference Range Interpretation Comments Creatinine Lvl (test code = Creatinine 1.7 0.5-1.4 Lvl) [facility]CHE[facility] QAQMU1929-95-44 19:25:00 Test Item Value Reference Range Interpretation Comments BUN (test code = BUN) 14 7-22 [facility]PxzbcraYKTRBJQCAUZE2028-22-32 19:25:00 Test Item Value Reference Range Interpretation Comments Potassium Lvl (test code = Potassium 4.3 3.5-5.1 Lvl) [facility] CenterAocghrtCBLLQFUZCP6237-47-94 19:25:00 Test Item Value Reference Range Interpretation Comments Hct (test code = Hct) 36.8 42.0-54.0 [facility] CenterIdjuzfwTXQKCOSABO0251-55-91 19:25:00 Test Item Value Reference Range Interpretation Comments MCV (test code = MCV) 97.6 80.0-94.0 [facility] CenterCvrvxamKOTVAMOSZJ2838-58-06 19:25:00 Test Item Value Reference Range Interpretation Comments MCH (test code = MCH) 33.2 pg 27.0-31.0 [facility] HospitalYutbpkrYKMMELTKEJ9537-39-23 19:25:00 Test Item Value Reference Range Interpretation Comments Hgb (test code = Hgb) 12.5 14.0-18.0 [facility] CenterHejxgexQGEBXUDBUT3912-22-10 19:25:00 Test Item Value Reference Range Interpretation Comments WBC (test code = WBC) 7.7 3.7-10.4 [facility] HospitalPprqgkvVBCYYFDYPW2251-99-28 19:25:00 Test Item Value Reference Range Interpretation Comments RBC (test code = RBC) 3.77 4.70-6.10 [facility] CenterVvcwgozCTAOMCQWQM3956-98-33 19:25:00 Test Item Value Reference Range Interpretation Comments RDW (test code = RDW) 14.0 11.5-14.5 [facility]UmbqejyYVZKCQHIGE4518-66-53 19:25:00 Test Item Value Reference Range Interpretation Comments Platelet (test code = Platelet) 155 133-450 [facility] HospitalSssxvomQYNXMDQZBV6513-72-09 19:25:00 Test Item Value Reference Range Interpretation Comments MPV (test code = MPV) 7.7 7.4-10.4 [facility] HospitalYfitpvpNBIHCWINQE1637-64-22 19:25:00 Test Item Value Reference Range Interpretation Comments MCHC (test code = MCHC) 34.0 32.0-36.0 [facility] HospitalLeqwtzkODWBTOFEOT7853-44-01 19:25:00 Test Item Value Reference Range Interpretation Comments Segs-Bands # (test code = Segs-Bands #) 5.7 1.5-8.1 [facility] HospitalTsyxxquHVYXMMLOFR1703-34-89 19:25:00 Test Item Value Reference Range Interpretation Comments Eosinophils (test code = 4.3 See_Comment [A utomated message] The Eosinophils) system which ge nerated this result tra nsmitted reference range : <=4.0. The reference r lance was not used to int erpret this result as normal/abnormal . [facility] HospitalBfkbxlqBMYBNYZYOK7186-01-81 19:25:00 Test Item Value Reference Range Interpretation Comments Basophils # (test code 0.0 See_Comment [Aut omated message] The = Basophils #) system which generated this result tra nsmitted reference range : <=0.2. The reference r lance was not used to int erpret this result as normal/abnormal . [facility] HospitalJzjaxmiFUFKZWFACZ3573-67-42 19:25:00 Test Item Value Reference Range Interpretation Comments Basophils (test code = 0.3 See_Comment [Aut omated message] The Basophils) system which ge nerated this result tra nsmitted reference range : <=1.0. The reference r lance was not used to int erpret this result as normal/abnormal . [id number] 19:25:00 Test Item Value Reference Range Interpretation Comments Monocytes (test code = Monocytes) 5.1 2.0-12.0 [facility]IwxpfdpOBRECHITGH4267-25-90 19:25:00 Test Item Value Reference Range Interpretation Comments Lymphocytes (test code = Lymphocytes) 16.3 20.0-40.0 [facility] HospitalNoizptrCGAAJQDCHA8318-97-66 19:25:00 Test Item Value Reference Range Interpretation Comments Lymphocytes # (test code = Lymphocytes 1.2 1.0-5.5 #) [facility] HospitalNhezwzbFAHZUMYOWJ4075-54-27 19:25:00 Test Item Value Reference Range Interpretation Comments Eosinophils # (test code 0.3 See_Comment [A utomated message] The = Eosinophils #) system whic h generated this result tra nsmitted reference range : <=0.5. The reference r lance was not used to int erpret this result as normal/abnormal . [facility] HospitalCrbiazmIKCBMWXDXW1472-46-97 19:25:00 Test Item Value Reference Range Interpretation Comments Monocytes # (test code 0.4 See_Comment [Aut omated message] The = Monocytes #) system which generated this result tra nsmitted reference range : <=0.8. The reference r lance was not used to int erpret this result as normal/abnormal . [facility] HospitalDsheiccAWADSVIDNH4260-93-77 19:25:00 Test Item Value Reference Range Interpretation Comments Segs (test code = Segs) 74.0 45.0-75.0 [facility]wOIJSGJOCEI9771-79-94 19:25:00 Test Item Value Reference Range Interpretation Comments Vanco Tr TND (test code = Vanco Tr unknown TND) [place] [id number] 19:25:00 Test Item Value Reference Range Interpretation Comments Vanco Tr (test code = Vanco Tr) 24.4 [facility]2014-06-19 18:20:00 Test Item Value Reference Range Interpretation Comments eGFR (test code = eGFR) 54 [facility] [id number] 18:20:00 Test Item Value Reference Range Interpretation Comments Creatinine Lvl (test code = Creatinine 1.5 0.5-1.4 Lvl) [facility] [id number] 18:20:00 Test Item Value Reference Range Interpretation Comments BUN (test code = BUN) 11 7-22 [facility]BvueuyoLHBHADRIXGIZ4574-44-96 18:20:00 Test Item Value Reference Range Interpretation Comments Potassium Lvl (test code = Potassium 4.5 3.5-5.1 Lvl) [facility]jj[facility]oPBNCGWCCLE6045-96-46 18:20:00 Test Item Value Reference Range Interpretation Comments MCH (test code = MCH) 32.7 pg 27.0-31.0 [facility] HospitalPtqoeseKICLVWKICN9079-38-64 18:20:00 Test Item Value Reference Range Interpretation Comments MCHC (test code = MCHC) 33.6 32.0-36.0 [facility] HospitalVnqetteFSHQJFSOLA4469-03-48 18:20:00 Test Item Value Reference Range Interpretation Comments Platelet (test code = Platelet) 186 133-450 [facility] HospitalYnxgtulARGVCNFSUS1572-23-11 18:20:00 Test Item Value Reference Range Interpretation Comments RDW (test code = RDW) 14.0 11.5-14.5 [facility] HospitalWosrhgrQECHNSXZSL8350-01-67 18:20:00 Test Item Value Reference Range Interpretation Comments MPV (test code = MPV) 7.4 7.4-10.4 [facility]IpdmcfuMMXGLYAQXE8710-48-78 18:20:00 Test Item Value Reference Range Interpretation Comments Hgb (test code = Hgb) 12.2 14.0-18.0 [facility] HospitalCmkgeihHTZNLFUMIH0512-82-09 18:20:00 Test Item Value Reference Range Interpretation Comments RBC (test code = RBC) 3.73 4.70-6.10 [facility] HospitalAotaamiVILSSEKRNL7446-95-98 18:20:00 Test Item Value Reference Range Interpretation Comments MCV (test code = MCV) 97.6 80.0-94.0 [facility] HospitalOfirkmyMGHPRXGCGO9749-34-70 18:20:00 Test Item Value Reference Range Interpretation Comments Hct (test code = Hct) 36.4 42.0-54.0 [facility] HospitalXiovhcqXEZLMXLVBH6669-87-42 18:20:00 Test Item Value Reference Range Interpretation Comments WBC (test code = WBC) 9.7 3.7-10.4 [facility] HospitalZizpewhDAPSDZCOOI1684-82-08 18:20:00 Test Item Value Reference Range Interpretation Comments Basophils # (test code 0.1 See_Comment [Aut omated message] The = Basophils #) system which generated this result tra nsmitted reference range : <=0.2. The reference r lance was not used to int erpret this result as normal/abnormal . [facility] HospitalMfvingoJVNYDGDGUD9617-00-94 18:20:00 Test Item Value Reference Range Interpretation Comments Lymphocytes # (test code = Lymphocytes 2.0 1.0-5.5 #) [facility] HospitalJtoqfpnXMZQFDFECT0235-50-17 18:20:00 Test Item Value Reference Range Interpretation Comments Monocytes # (test code 0.7 See_Comment [Aut omated message] The = Monocytes #) system which generated this result tra nsmitted reference range : <=0.8. The reference r lance was not used to int erpret this result as normal/abnormal . [facility] HospitalCizhlpbTFQZYICFFR5602-96-17 18:20:00 Test Item Value Reference Range Interpretation Comments Eosinophils # (test code 0.4 See_Comment [A utomated message] The = Eosinophils #) system whic h generated this result tra nsmitted reference range : <=0.5. The reference r lance was not used to int erpret this result as normal/abnormal . [facility] HospitalLtkpudjVXKTYRAXSB5602-02-36 18:20:00 Test Item Value Reference Range Interpretation Comments Basophils (test code = 0.6 See_Comment [Aut omated message] The Basophils) system which ge nerated this result tra nsmitted reference range : <=1.0. The reference r lance was not used to int erpret this result as normal/abnormal . [facility] HospitalJzezgqsIZEXKOLOYS9216-72-38 18:20:00 Test Item Value Reference Range Interpretation Comments Segs-Bands # (test code = Segs-Bands #) 6.6 1.5-8.1 [facility] HospitalIlazazmJXBHCRFNOI3874-85-52 18:20:00 Test Item Value Reference Range Interpretation Comments Lymphocytes (test code = Lymphocytes) 20.5 20.0-40.0 [facility] HospitalPijivmvFERKGEOTVV8927-30-57 18:20:00 Test Item Value Reference Range Interpretation Comments Monocytes (test code = Monocytes) 7.3 2.0-12.0 [facility] HospitalDosgynjFUFJJFDQJN7332-78-94 18:20:00 Test Item Value Reference Range Interpretation Comments Eosinophils (test code = 3.7 See_Comment [A utomated message] The Eosinophils) system which ge nerated this result tra nsmitted reference range : <=4.0. The reference r lance was not used to int erpret this result as normal/abnormal . [facility] HospitalGhrqycqETKQLZJOTC9516-25-14 18:20:00 Test Item Value Reference Range Interpretation Comments Segs (test code = Segs) 67.9 45.0-75.0 [facility]UppxzygCBNVQFBJOA3149-46-82 18:20:00 Test Item Value Reference Range Interpretation Comments Vanco Tr TND (test code = Vanco Tr TND) NA [facility] CenterInkdvfeENULNRSWAA1883-57-12 18:20:00 Test Item Value Reference Range Interpretation Comments Vanco Tr (test code = Vanco Tr) 24.1 [facility] [id number] 18:20:00 Test Item Value Reference Range Interpretation Comments eGFR (test code = eGFR) 54 [facility] [id number] 18:20:00 Test Item Value Reference Range Interpretation Comments Creatinine Lvl (test code = Creatinine 1.5 0.5-1.4 Lvl) [facility]annCHEM [id number] 18:20:00 Test Item Value Reference Range Interpretation Comments BUN (test code = BUN) 11 7- [facility] HospitalQytmjcqSQDYENSBNLYH9999-20-58 18:20:00 Test Item Value Reference Range Interpretation Comments Potassium Lvl (test code = Potassium 4.5 3.5-5.1 Lvl) [facility] HospitalYfarxseIFPPQPWZOB8745-27-02 18:20:00 Test Item Value Reference Range Interpretation Comments MCH (test code = MCH) 32.7 pg 27.0-31.0 [facility] HospitalGcogsshMOVERIFLEP7442-87-85 18:20:00 Test Item Value Reference Range Interpretation Comments MCHC (test code = MCHC) 33.6 32.0-36.0 [facility] CenterXkgjzgiQKEXCPLFNZ7465-57-11 18:20:00 Test Item Value Reference Range Interpretation Comments Platelet (test code = Platelet) 186 133-450 [facility] HospitalYqgwowlJPZHHHBHOQ7147-12-66 18:20:00 Test Item Value Reference Range Interpretation Comments RDW (test code = RDW) 14.0 11.5-14.5 [facility] HospitalLrkggsuNEJVZSXDGU1587-17-34 18:20:00 Test Item Value Reference Range Interpretation Comments MPV (test code = MPV) 7.4 7.4-10.4 [facility] HospitalXakmvmmGLUQPGFTYR3083-12-87 18:20:00 Test Item Value Reference Range Interpretation Comments Hgb (test code = Hgb) 12.2 14.0-18.0 [facility] HospitalQypycjvKSNLTISMCJ0081-17-39 18:20:00 Test Item Value Reference Range Interpretation Comments RBC (test code = RBC) 3.73 4.70-6.10 [facility] HospitalZtmipdoWTXOAYPEZX4179-83-99 18:20:00 Test Item Value Reference Range Interpretation Comments MCV (test code = MCV) 97.6 80.0-94.0 [facility] HospitalCwzbocxRJUSHSUTSK8467-04-70 18:20:00 Test Item Value Reference Range Interpretation Comments Hct (test code = Hct) 36.4 42.0-54.0 [facility] HospitalUpnxwkdEBIYBGENLV0057-53-32 18:20:00 Test Item Value Reference Range Interpretation Comments WBC (test code = WBC) 9.7 3.7-10.4 [facility] HospitalVvyvykvOYNYPLJVPN6106-54-60 18:20:00 Test Item Value Reference Range Interpretation Comments Basophils # (test code 0.1 See_Comment [Aut omated message] The = Basophils #) system which generated this result tra nsmitted reference range : <=0.2. The reference r lance was not used to int erpret this result as normal/abnormal . [facility] HospitalKywkmpsZAZICSQXFO2744-08-67 18:20:00 Test Item Value Reference Range Interpretation Comments Lymphocytes # (test code = Lymphocytes 2.0 1.0-5.5 #) [facility] HospitalOsstursJTIHVGRNFI1969-46-52 18:20:00 Test Item Value Reference Range Interpretation Comments Monocytes # (test code 0.7 See_Comment [Aut omated message] The = Monocytes #) system which generated this result tra nsmitted reference range : <=0.8. The reference r lance was not used to int erpret this result as normal/abnormal . [facility] HospitalJvadcssNWIESAWJBS8488-53-07 18:20:00 Test Item Value Reference Range Interpretation Comments Eosinophils # (test code 0.4 See_Comment [A utomated message] The = Eosinophils #) system whic h generated this result tra nsmitted reference range : <=0.5. The reference r lance was not used to int erpret this result as normal/abnormal . [facility] HospitalThwyltjCUZHKYFHZT7250-97-27 18:20:00 Test Item Value Reference Range Interpretation Comments Basophils (test code = 0.6 See_Comment [Aut omated message] The Basophils) system which ge nerated this result tra nsmitted reference range : <=1.0. The reference r lance was not used to int erpret this result as normal/abnormal . [facility] HospitalZjanpaeWJZVTZOTHJ0881-58-37 18:20:00 Test Item Value Reference Range Interpretation Comments Segs-Bands # (test code = Segs-Bands #) 6.6 1.5-8.1 [facility] HospitalAwjtxtuJGBVIJSOPB2566-28-98 18:20:00 Test Item Value Reference Range Interpretation Comments Lymphocytes (test code = Lymphocytes) 20.5 20.0-40.0 [facility] HospitalTxrtyddCMWPCOTURX7884-06-54 18:20:00 Test Item Value Reference Range Interpretation Comments Monocytes (test code = Monocytes) 7.3 2.0-12.0 [facility] HospitalZoggrjsLSBMFZTXHP5352-05-42 18:20:00 Test Item Value Reference Range Interpretation Comments Eosinophils (test code = 3.7 See_Comment [A utomated message] The Eosinophils) system which ge nerated this result tra nsmitted reference range : <=4.0. The reference r lance was not used to int erpret this result as normal/abnormal . [facility] HospitalIwxskdnIUFZEGARDC2582-03-97 18:20:00 Test Item Value Reference Range Interpretation Comments Segs (test code = Segs) 67.9 45.0-75.0 [facility]wallVctnbunXAMUDFMCMK8705-41-51 18:20:00 Test Item Value Reference Range Interpretation Comments Shankar Arredondo TND (test code = Vanco Tr TND) NA [place] [id number] 18:20:00 Test Item Value Reference Range Interpretation Comments Shankar Tr (test code = Vanco Tr) 24.1 [facility]
[2022-01-27] MEDS ORDERED: levETIRAcetam 1,000 MG in NA CHLORIDE 0.9% 100 ML IV ONE (12:30)
--- NOTE | 2022-01-27 12:36 | RAD REPORT ---
EXAM DESCRIPTION: CT - Head Brain Wo Cont - 01/27/2022 12:26 pm CLINICAL HISTORY: seizure, head injury x 2 on concrete Trauma, head injury COMPARISON: Head Brain Wo Cont dated 02/14/2021; Head Brain Wo Cont dated 01/14/2021; Head C Spine Cap Wo Con dated 12/27/2021 TECHNIQUE: All CT scans are performed using dose optimization technique as appropriate and may inclu de automated exposure control or mA/KV adjustment according to patient size. FINDINGS: No intracranial hemorrhage, hydrocephalus or extra-axial fluid collection.Mild generalized brain atrophy is present with mild periventricular and deep white matter chronic microvascular ische javier changes.No areas of brain edema or evidence of midline shift. The paranasal sinuses and mastoids are clear. The calvarium is intact. IMPRESSION: No acute intracranial abnormality.
[2022-01-27 12:49] LABS: Absolute Lymphocytes (CBC) 1.1 K/uL (0.7-4.9); Hematocrit 44.8 % (39.6-49.0); Lymphocytes % 11.3 % (15.3-44.8); MCV 97.3 fL (80-100); MPV 6.8 fL (7.6-11.3)
[2022-01-27 13:01] LABS: Protime INR 1.06
[2022-01-27] MEDS ORDERED: ONDANSETRON 4 MG/2 ML VIAL ONE (13:25)
[2022-01-27] MEDS ORDERED: MORPHINE 4 MG/ML SYR ONE (13:27)
[2022-01-27] MEDS ORDERED: LIDOCAINE 1% MPF 30 ML VIAL ONE (14:09)
[2022-01-27 14:12] LABS: Potassium 4.6 mmol/L (3.5-5.1)
--- NOTE | 2022-01-27 14:42 | ER ---
Nurse's Notes [facility] Name: Karlos Leblanc Age: 56 yrs Sex: Male : 1965 Arrival Date: 01/27/2022 Time: 12:12 Bed 4 Private MD: Diagnosis: Epileptic seizures related to external causes, not intractable;Unspecified injury of head, initial encounter;Laceration without foreign body of scalp;Laceration of forehead Presentation: 01/27 12:13 Chief complaint: Patient states: C/O pain to head, DON shoulders, DON knees. 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 Pt reports falling from standing and hitting head. Laceration to right forehead and back of head. Coronavirus screen: At this time, the client does not indicate any symptoms associated with coronavirus-19. Ebola Screen: No symptoms or risks identified at this time. Initial Sepsis Screen: Does the patient meet any 2 criteria? No. Patient's initial sepsis screen is negative. Does the patient have a suspected source of infection? No. Patient's initial sepsis screen is negative. Risk Assessment: Do you want to hurt yourself or someone else? Patient reports no desire to harm self or others. Onset of symptoms was January 27, 2022. 12:13 Method Of Arrival: EMS: [facility] ld1 12:13 Acuity: KENIA 3 ld1 Triage Assessment: 12:16 General: Appears in no apparent distress. uncomfortable, Behavior is calm, cooperative, ld1 appropriate for age. Pain: Complains of pain in forehead, left parietal area, right parietal area, anterior aspect of right shoulder, anterior aspect of left shoulder, right knee and left knee Pain does not radiate. Pain currently is 10 out of 10 on a pain scale. Quality of pain is described as throbbing, Pain began suddenly, Is continuous. EENT: No signs and/or symptoms were reported regarding the EENT system. Neuro: Level of Consciousness is awake, alert, obeys commands, Oriented to person, place, time, situation. Cardiovascular: Capillary refill < 3 seconds Patient's skin is warm and dry. Rhythm is sinus tachycardia. Respiratory: Airway is patent Respiratory effort is even, unlabored. GI: Abdomen is flat, non-distended. : No signs and/or symptoms were reported regarding the genitourinary system. Derm: No signs and/or symptoms reported regarding the dermatologic system. Musculoskeletal: No signs and/or symptoms reported regarding the musculoskeletal system. Injury Description: Laceration sustained to forehead, left parietal area and right parietal area is clean, a small amount of bleeding noted at this time. Historical: - Allergies: 12:16 NKDA; ld1 - PMHx: 12:16 Hypertension; Seizures; ld1 - PSHx: 12:16 cardiac stents; ld1 - Immunization history:: Adult Immunizations up to date, Client reports receiving the 2nd dose of the Covid vaccine. - Social history:: Smoking status: Patient reports the use of cigarette tobacco products, smokes two packs cigarettes per day. Patient uses alcohol, occasionally. Patient/guardian denies using street drugs. - Family history:: not pertinent. - Hospitalizations: : No recent hospitalization is reported. Screenin:18 Abuse screen: Denies threats or abuse. Denies injuries from another. Nutritional ld1 screening: No deficits noted. Tuberculosis screening: No symptoms or risk factors identified. Fall Risk Fall in past 12 months (25 points). Secondary diagnosis (15 points) seizures, Total Mota Fall Scale indicates No Risk (0-24 pts). Assessment: 12:18 Reassessment: See triage assessment. ld1 13:22 Reassessment: Patient and/or family updated on plan of care and expected duration. Pain ld1 level reassessed. Pt c/o pain in head - notified ERP. See [facility] for orders. Vital Signs: 12:13 BP 178 / 92; Pulse 101; Resp 16; Temp 99.3(TE); Pulse Ox 100% on R/A; Weight 82.1 kg; ld1 Height 6 ft. 1 in. (185.42 cm); Pain 8/10; 13:22 BP 144 / 73; Pulse 94; Resp 18; Pulse Ox 95% on R/A; Pain 9/10; ld1 14:59 BP 142 / 76; Pulse 91; Resp 18; Pulse Ox 96% on R/A; ld1 12:13 Body Mass Index 23.88 (82.10 kg, 185.42 cm) ld1 ED Course: 12:12 Patient arrived in ED. eb 12:13 German Guerin MD is Attending Physician. rn 12:16 Triage completed. ld1 12:16 Arm band placed on right wrist. ld1 12:18 Patient has correct armband on for positive identification. Placed in gown. Bed in low ld1 position. Call light in reach. Side rails up X2. Seizure precautions initiated. ekg monitor on. Pulse ox on. NIBP on. Door closed. Noise minimized. Warm blanket given. 12:18 No provider procedures requiring assistance completed. ld1 12:20 Lise Luque, RN is Primary Nurse. ld1 12:28 Head Brain Wo Cont In Process Unspecified. EDMS 12:52 Inserted saline lock: 20 gauge in right forearm, using aseptic technique. Blood ld1 collected. 15:00 IV discontinued, intact, bleeding controlled, No redness/swelling at site. Wound care: ld1 to road rash located on face, scalp, right arm and left leg. Administered Medications: 13:15 Drug: Keppra (levETIRAcetam) 1000 mg Route: IV; Rate: calculated rate; Site: right ld1 forearm; 14:00 Follow up: Response: No adverse reaction; IV Status: Infusion continued; IV Intake: ld1 100ml 13:29 Drug: morphine 4 mg Route: IVP; Infused Over: 4 mins; Site: right forearm; ld1 15:09 Follow up: Response: No adverse reaction; RASS: Alert and Calm (0) ld1 13:29 Drug: Zofran (Ondansetron) 4 mg Route: IVP; Site: right forearm; ld1 15:09 Follow up: Response: No adverse reaction ld1 Medication: 12:18 VIS not applicable for this client. ld1 Intake: 14:00 IV: 100ml; Total: 100ml. ld1 Outcome: 14:42 Discharge ordered by . rn 14:59 Discharged to home via wheelchair. ld1 14:59 Condition: stable 14:59 Discharge instructions given to patient, Instructed on discharge instructions, follow up and referral plans. medication usage, Demonstrated understanding of instructions, follow-up care, medications, Prescriptions given X 2. 15:00 Patient left the ED. ld1 Signatures: Dispatcher [employer] EDMS German Guerin MD MD rn Botello, Elizabeth eb Dibbern, Lauren, RN RN ld1
--- NOTE | 2022-01-27 14:42 | EDPHYS ---
Physician Documentation [facility] Name: Karlos Leblanc Age: 56 yrs Sex: Male : 1965 Arrival Date: 01/27/2022 Time: 12:12 Bed 4 Private MD: ED Physician German Guerin HPI: 01/27 13:32 This 56 yrs old Male presents to ER via EMS with complaints of seizures. rn 13:32 The patient presents with a history of multiple seizures, a total of 3. Character of rn seizure(s): Loss of consciousness: the patient did not lose consciousness, Motor activity: generalized, Incontinence: none, Circulation: the patient did not experience evidence of pulse disturbance. Seizure onset: today. Associated injury: Head/face: laceration. Current symptoms: headache. The patient has experienced similar episodes in the past. The patient has not recently seen a physician. Pt reports hx of seizures, just seen and meds increased 3 weeks ago. Had 3 seizures today, hit head twice on concrete. + headache. Only complains of abrasions to legs and arms otherwise. Ambulatory. Denies drug use. Has not felt ill recently. No vomiting.. Historical: - Allergies: 12:16 NKDA; ld1 - PMHx: 12:16 Hypertension; Seizures; ld1 - PSHx: 12:16 cardiac stents; ld1 - Immunization history:: Adult Immunizations up to date, Client reports receiving the 2nd dose of the Covid vaccine. - Social history:: Smoking status: Patient reports the use of cigarette tobacco products, smokes two packs cigarettes per day. Patient uses alcohol, occasionally. Patient/guardian denies using street drugs. - Family history:: not pertinent. - Hospitalizations: : No recent hospitalization is reported. ROS: 13:32 Constitutional: Negative for fever, chills, and weight loss, Eyes: Negative for injury, rn pain, redness, and discharge, Neck: Negative for injury, pain, and swelling, Cardiovascular: Negative for chest pain, palpitations, and edema, Respiratory: Negative for shortness of breath, cough, wheezing, and pleuritic chest pain, Abdomen/GI: Negative for abdominal pain, nausea, vomiting, diarrhea, and constipation, Back: Negative for injury and pain, MS/Extremity: Negative for injury and deformity, Skin: + abrasions Neuro: Negative for numbness, tingling, and seizure. Exam: 13:32 Constitutional: This is a well developed, well nourished patient who is awake, alert, rn and in no acute distress. Head/Face: Normocephalic, + right forehead with 4 cm superficial laceration, no active bleeding noted, no foreign body. Eyes: Pupils equal round and reactive to light, extra-ocular motions intact. Lids and lashes normal. Conjunctiva and sclera are non-icteric and not injected. Cornea within normal limits. Periorbital areas with no swelling, redness, or edema. ENT: No oral trauma Neck: No midline cervical tenderness Cardiovascular: Regular rate and rhythm. No pulse deficits. Respiratory: No increased work of breathing, no retractions or nasal flaring. Abdomen/GI: Soft, non-tender Skin: + multiple skin tears to arms and legs, no lacerations to extremities. MS/ Extremity: Pulses equal, no cyanosis. Neurovascular intact. Full, normal range of motion. Equal circumference. Neuro: Awake and alert, GCS 15, oriented to person, place, time, and situation. Cranial nerves II-XII grossly intact. Motor strength 5/5 in all extremities. Sensory grossly intact. Cerebellar exam normal. Normal gait. Vital Signs: 12:13 BP 178 / 92; Pulse 101; Resp 16; Temp 99.3(TE); Pulse Ox 100% on R/A; Weight 82.1 kg; ld1 Height 6 ft. 1 in. (185.42 cm); Pain 8/10; 13:22 BP 144 / 73; Pulse 94; Resp 18; Pulse Ox 95% on R/A; Pain 9/10; ld1 14:59 BP 142 / 76; Pulse 91; Resp 18; Pulse Ox 96% on R/A; ld1 12:13 Body Mass Index 23.88 (82.10 kg, 185.42 cm) ld1 Laceration: 14:13 Wound Repair of 6cm ( 2.4in ) subcutaneous laceration to right forehead. Distal rn neuro/vascular/tendon intact. Anesthesia: Wound infiltrated with 3 mls of 1% lidocaine. Wound prep: Extensive cleansing by nurse, Wound explored extensively. Skin closed with 6 5-0 Prolene using interrupted sutures and sterile technique. Dressed with 4x4's. Patient tolerated well. 14:39 Wound Repair of 4cm ( 1.6in ) subcutaneous laceration to scalp. Distal rn neuro/vascular/tendon intact. Wound prep: Extensive cleansing by nurse, Wound explored extensively. Skin closed with 4 35W Arsenio using staple gun. Dressed with 4x4's. Patient tolerated well. MDM: 12:13 Patient medically screened. rn 14:40 Differential diagnosis: seizure, laceration, head injury. Data reviewed: vital signs, rn nurses notes, lab test result(s), radiologic studies, CT scan, and as a result, I will discharge patient. Counseling: I had a detailed discussion with the patient and/or guardian regarding: the historical points, exam findings, and any diagnostic results supporting the discharge/admit diagnosis, lab results, radiology results, the need for outpatient follow up, to return to the emergency department if symptoms worsen or persist or if there are any questions or concerns that arise at home. Response to treatment: the patient's symptoms have markedly improved after treatment, the patient's symptoms have resolved after treatment, the patient's condition has returned to base line, and as a result, I will discharge patient. Special discussion: Based on the patient's history, exam and DX evaluation, there is no indication for emergent intervention or inpatient TX. It is understood by the patient/guardian that if the SXs persist or worsen they need to return immediately for re-evaluation. I discussed with the patient/guardian in detail that at this point there is no indication for admission to the hospital. It is understood, however, that if the symptoms persist or worsen the patient needs to return immediately for re-evaluation. ED course: Pt back to normal, sutured and stapled, wants to go home already. Got BETITO wynne here. CT head and labs without acute findings. . 01/27 12:14 Order name: CBC with Diff; Complete Time: 13:57 rn 01/27 12:14 Order name: Basic Metabolic Panel; Complete Time: 14:13 rn 01/27 12:14 Order name: CT Head Brain wo Cont rn 01/27 12:14 Order name: Protime (+inr); Complete Time: 13:57 rn 01/27 12:14 Order name: Ptt, Activated; Complete Time: 13:57 rn 01/27 12:18 Order name: Head Brain Wo Cont; Complete Time: 13:57 EDMS 01/27 12:14 Order name: IV Start; Complete Time: 12:52 rn Administered Medications: 13:15 Drug: Keppra (levETIRAcetam) 1000 mg Route: IV; Rate: calculated rate; Site: right ld1 forearm; 14:00 Follow up: Response: No adverse reaction; IV Status: Infusion continued; IV Intake: ld1 100ml 13:29 Drug: morphine 4 mg Route: IVP; Infused Over: 4 mins; Site: right forearm; ld1 15:09 Follow up: Response: No adverse reaction; RASS: Alert and Calm (0) ld1 13:29 Drug: Zofran (Ondansetron) 4 mg Route: IVP; Site: right forearm; ld1 15:09 Follow up: Response: No adverse reaction ld1 Disposition Summary: 01/27/22 14:42 Discharge Ordered Location: Home rn Problem: new rn Symptoms: have improved rn Condition: Stable rn Diagnosis - Epileptic seizures related to external causes, not intractable rn - Unspecified injury of head, initial encounter rn - Laceration without foreign body of scalp rn - Laceration of forehead rn Followup: rn - With: Private Physician - When: 7 - 10 days - Reason: Recheck today's complaints, Staple/Suture removal, Re-evaluation by your physician Discharge Instructions: - Discharge Summary Sheet rn - Head Injury, Adult rn - Laceration Care, Adult rn - Facial Laceration rn Forms: - Medication Reconciliation Form rn - Thank You Letter rn - Antibiotic dietary internship - Prescription Opioid Use rn Prescriptions: - Cephalexin 500 mg Oral Capsule - take 1 capsule by ORAL route every 12 hours for 10 days; 20 capsule; Refills: rn 0, Product Selection Permitted - Tramadol 50 mg Oral Tablet - take 1 tablet by ORAL route every 8 hours as needed; 12 tablet; Refills: 0, rn Product Selection Permitted Signatures: Dispatcher [employer] German Roberts MD MD rn Lise Luque RN RN ld1
[2022-01-27 15:30] VITALS: TEMP 99.3
[2022-01-27 15:52] VITALS: BP 142/76; O2SAT 96
== END 2022-01-27 15:00 | disposition home or self-care (01) ==
LOC: ER 12:10
PROC: 0JQ10ZZ Repair Face Subcutaneous Tissue and Fascia, Open Approach (ICD-10-PCS; principal; 2022-01-27)
PROC: 0JQ00ZZ Repair Scalp Subcutaneous Tissue and Fascia, Open Approach (ICD-10-PCS; 2022-01-27)
DX: G40.509 Epileptic seizures related to external causes, not intractable, without status epilepticus (principal); S01.81XA Laceration without foreign body of other part of head, initial encounter; S01.01XA Laceration without foreign body of scalp, initial encounter; S09.90XA Unspecified injury of head, initial encounter; I10 Essential (primary) hypertension; F17.210 Nicotine dependence, cigarettes, uncomplicated
CPT/HCPCS: 96365; 85025; 36415; 80048; 85610; 85730; 70450; 96375; 99285; 12014; 12002; J1953; J2405

== ENCOUNTER 2022-02-10 19:45 | Emergency (ER) | payer OTHER ==
--- OUTSIDE RECORDS SUMMARY | 2022-02-10 20:03 | XMS REPORT | Continuity of Care Document ---
:1965 Author Organization [facility] t Address [address] [place] [address] Care Team Providers Name Role Phone PCP, PATIENT DOES NOT HAVE A Primary Care Physician UnavailMAJO Mc Attending Clinician Unavailable Majo Antunez NP Attending Clinician Doctor Unassigned, [place] Attending Clinician Unavailable JOSE SAVAGE Attending Clinician [...] Number Effective Date Expiration Date Williams goins AETNA MEDICARE HMO [id number] 2016 POS 00:00:00 AETNA MEDICARE OUT [id number] 2020 OF NETWORK 00:00:00 Problems Condition Condition Condition Status Onset Resolution Last Treating Co mments Source Name Details Category Date Date Treatment Clinician Date Osteomyeli Osteomyeli Disease Active U nivers tis tis 7-13 ity of 00:00: [address] Branch Cellulitis Cellulitis Disease Active U nivers of left of left 7-12 ity of foot foot 00:00: [address] Branch [facility] Metabolic Metabolic Disease Active 2016-[address] [facility] acidosis acidosis 1-24 [facility] 00 [place] Hypertensi Hypertensi Disease Active 2016-[address] on, on, 06-17 [facility] essential essential 00:00: [facility] 00 Center Leukocytos Leukocytos Disease Active 2016-[address] is is 06-17 [facility] Tongue Tongue Disease Active 2016-[address] [facility] [address] laceration laceration - Evelyn kes 00:00: Medical 00 Center H/O ETOH H/O ETOH Disease Active 2016[facility] Acute Acute Disease Active 2016-[address] [facility] kidney kidney 06-17 [facility] injury injury [facility] 00 Center Status Status Disease Active 2016-[address] [facility] epilepticu epilepticu 20 Evelyn kes s s 00:00: Medical 00 Center ANEMIA ANEMIA Diagnosis Active 2015-052016-04-05 Me moria Active 06-04 09:38:00 l 04/04/2016 00:00: Raudel SAMANIEGO [facility] OTHER OTHER Diagnosis Active 2015-052016-03-13 Mem oria Active 19:39:00 l 03/13/2016 00:00: Raudel SAMANIEGO [facility] FOOT FOOT Diagnosis Active 2016-02-12 Mem oria GANGRENE GANGRENE 01-30 20:08:00 l Active 00:00: Kai 01/31/2016 00 [facility] LEFT FOOT LEFT FOOT Diagnosis Active 2016-01-31 Memoria SORES SORES 01-30 22:38:00 l Active 00:00: [place] 01/31/2016 00 [facility] CP CP Active Diagnosis Active 2015-02-15 Memoria 02/15/201502-15 16:10:00 l The 00:00: [facility] 00 CHEST PAIN CHEST Diagnosis Active 2015-02-15 Memoria PAIN 02-15 18:21:00 l Active 00:00: [place] 02/15/2015 00 [facility] LEFT WRIST LEFT Diagnosis Active 2015-02-09 Memoria PAIN WRIST PAIN 02-09 16:02:00 l Active 00:00: Kai 02/09/2015 00 [facility] AMS AMS Diagnosis Active 2015-01-23 Mem oria Active 01-23 15:36:00 l 01/23/2015 00:00: Raudel black [address] WOUND WOUND Diagnosis Active 2014-02-12 Me moria INFECTION INFECTION 10-20 13:06:00 l V V 00:00: [place] NECFAS;CHR NECFAS;CHR 00 ONIC ONIC OSTEOMY OSTEOMY Active 10/20/2013 [facility] Acute Acute Problem Active 2016-04-08 Ed bandar osteomyeli osteomyeli 03:42:03 l tis tis Kai (disorder) (disorder) Active Problem 04/08/2016 [facility] Congestive Congestiv Problem Active 2016-04-08 Memoria heart e heart 03:42:03 l failure failure Kai (disorder) (disorder) Active Problem 04/08/2016 [facility] Hypertensi Hypertens Problem Active 2016-04-08 Memoria ve vahid 03:42:03 l disorder, disorder, Herm delisa systemic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 arterial (disorder) (disorder) Active Problem 04/08/2016 [place] Bronchitis Bronchiti Problem Active 2016-04-08 Memoria (disorder) s 03:42:03 l (disorder) Raudel n Active Problem 04/08/2016 [facility] Chronic Chronic Problem Active 2016-04-08 Me moria obstructiv obstructiv 03:42:03 l e lung e lung Kai disease disease (disorder) (disorder) Active Problem 04/08/2016 [facility] History of History Problem Active 2016-04-08 Memoria - of - 03:42:03 l infectious infectious He rmann disease disease (context-d (context-d ependent ependent category) category) Active Problem 04/08/2016 [facility] History of History Problem Active 2016-04-08 Memoria amputation of 03:42:03 l of lesser amputation Her cook toe of lesser (situation toe ) (situation ) Active Problem 04/08/2016 [facility] History of History Problem Active 2016-04-08 Memoria - of - 03:42:03 l cardiovasc cardiovasc He rmann ular ular disease disease (context-d (context-d ependent ependent category) category) Active Problem 04/08/2016 [facility] Benign Benign Problem Active 2016-04-08 Ed bandar prostatic prostatic 03:42:03 l hyperplasi hyperplasi He rmann a a (disorder) (disorder) Active Problem 04/08/2016 [facility] Epistaxis Epistaxis Problem Active 2016-04-08 Memoria (disorder) (disorder) 03:42:03 l Active Kai Problem 04/08/2016 [facility] CELLULITIS CELLULITI Diagnosis Active 2014-02-12 Memoria OF FOOT S OF FOOT 13:06:00 l Active Raudel black [place] AC AC Diagnosis Active 2014-02-12 Mem oria OSTEOMYELI OSTEOMYELI 13:06:00 l TIS-UNSPEC TIS-UNSPEC He rmann Active [facility] CHEST PAIN CHEST Diagnosis Active 2015-02-15 Memoria NOS PAIN NOS 18:21:00 l Active Raudel black [place] GANGRENE, GANGRENE, Diagnosis Active 2016-02-12 Memoria NOT NOT 20:08:00 l ELSEWHERE ELSEWHERE Herm delisa CLASSIFIED CLASSIFIED Active [facility] ANEMIA, ANEMIA, Diagnosis Active 2016-04-05 Memoria UNSPECIFIE UNSPECIFIE 09:38:00 l D D Active Kai [facility] History of Past Illness Condition Condition Condition Status Onset Resolution Last Treating Co mments Source Name Details Category Date Date Treatment Clinician Date Discharge Discharge Problem 2015-052016-03-17 2016-03-17 Memoria Diagnosis: Diagnosis: 0-18 03:02:37 03:02:37 l Acute on Acute on 05:00: Raudel black chronic chronic 00 renal renal failure failure 03/14/2016 03/17/2016 [facility] Discharge Discharge Problem 2015-052016-03-17 2016-03-17 Memoria Diagnosis: Diagnosis: 0- 03:02:37 03:02:37 l Anemia Anemia 05:00: Kai 03/14/2016 00 03/17/2016 [facility] Discharge Discharge Problem 2015-052016-03-17 [facility] Diagnosis: Diagnosis: 0 03:02:37 03:02:37 l Post-opera Post-opera 05:00: He rmann tive pain tive pain 00 03/14/2016 03/17/2016 [facility] Discharge Discharge Problem 2015-052016-03-17 2016-03-17 Memoria Diagnosis: Diagnosis: 0- 03:02:37 03:02:37 l Acute Acute 05:00: [place] hypokalemi hypokalemi 00 a a 03/14/2016 03/17/2016 [facility] Discharge Discharge Problem 2015-02-19 2015-02-[facility] Diagnosis: Diagnosis: 02-16 07:51:51 07:51:51 l Hyperlipid Hyperlipid 14:36: He rmdelisa emia emia 02/16/2015 02/19/2015 [facility] Discharge Problem 2015-02-19 2015-02-[facility] Diagnosis: Discharge 02-16 07:51:51 07:51:51 l Hypertensi Diagnosis: 14:36: He rmann on Hypertensi 00 on 02/16/2015 02/19/2015 [facility] Discharge Discharge Problem 2015-02-19 2015-02-[facility] Diagnosis: Diagnosis: 02-16 07:51:51 07:51:51 l Angina Angina 14:35: Kai pectoris pectoris 54 02/16/2015 02/19/2015 [facility] Discharge Discharge Problem 2015-02-12 2015-02-12 [facility] Diagnosis: Diagnosis: 02-09 09:59:31 09:59:31 l Wrist Wrist 05:00: [place] sprain sprain 00 02/09/2015 02/12/2015 [facility] Discharge Discharge Problem 2015-01-26 2015-01-26 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 baptiste seizure, seizure, 00 generalize generalize d d 01/23/2015 5 [facility] [place] Discharge Discharge Problem 2015-01-26 2015-01-26 Priscila Diagnosis: Diagnosis: 01-23 02:07:27 02:07:27 l Cerebral Cerebral 05:00: Raudel n seizure seizure 00 01/23/2015 5 [facility] Allergies, Adverse Reactions, Alerts Allergy Allergy Status Severity Reaction(s) Onset Inactive Treating Comm ents Source Name Type Date Date Clinician No Known DA Active U 2018-05 [facility] All[facility]ie 0-10 [place] s 00:00: Health 00 are [facility] st Morphine Propensi Active Other (See 2016-[address] ty to Comments) 06-16 [facility] adverse 00:00: Medical reaction 00 [place] s MORPHINE Allergy Active Other 2016-05 [facility] 06-16 00:00: 00 morphine morphine Active Thomas Quinn NO KNOWN Drug Active [facility] Class ity of [facility] Social History Social Habit Start Date Stop Date Quantity Comments Source Exposure to Not sure [facility] SARS-CoV-2 (event) [facility] Cigarettes smoked 2017-04-16 2017-04-[address] [facility] current (pack per 00:00:00 00:[facility]:00 [facility] day) - Reported Tobacco use and 2017-04-16 2017-04-[address] [facility] exposure 00:00:00 00:00:00 [facility] Social History 2013-10-21 2013-10-21 [facility] 05:36:39 05:36:39 Sex Ass[birth year] At [birth year] [facility] [address] Evelyn kes 00:00:00 00:00:00 [facility] Smoking Status Start Date Stop Date Source Unknown if [facility] Current every day smoker 2017-04-16 00:00:00 [facility] Medications Ordered Filled Start Stop Current Ordering Indication Dosage Frequency Signature Comments Components Source Medication Medication Date Date Medication? Clinician (SIG) Name Name ketorolac 2020-05- No 30mg 30 mg, Unive rs (TORADOL) 06-04 Slow IV ity of injection 05:00: 04:08 Push, [place] 30 mg 00 :00 ONCE, 1 Medical dose, On Branch 04/03/21 at 2300, Routine
wait[place] tribunal member approving Restricted medication : MAJO ANTUNEZ levETIRAcet 2020-05- No 1000mg 1,000 mg, Univers am (KEPPRA) 06-04 Oral, ONCE i ty of tablet 05:00: 04:09 NOW, 1 [place] 1,000 mg 00 :00 dose, On Medical [place] 04/03/21 at 2300, Routine levETIRAcet 2020-05- No [id number] 500mg Take 1 Univers am 500 mg 06-03 tablet by ity of tablet 00:00: 05:59 mouth 2 [place] 00 :00 (two) Medical times Branch daily for 30 days. amLODIPine Yes [id number] 10mg Take 1 Univers 10 mg 7-18 [id number] tablet by ity of tablet 00:00: mouth [place] 00 daily. Medical Branch aspirin 81 Yes [id number] 81mg Take 1 Univers mg chewable 7-18 [id number] tablet by i ty of tablet 00:00: mouth [place] 00 daily. Medical Branch amLODIPine Yes [id number] 10mg Take 1 Univers 10 mg 7-18 [id number] tablet by ity of tablet 00:00: mouth [place] 00 daily. Medical Branch aspirin 81 Yes [id number] 81mg Take 1 Univers mg chewable 7-18 [id number] tablet by i ty of tablet 00:00: mouth [place] 00 daily. Medical Branch levETIRAcet 2018- Yes [id number] 1000mg Take 1 Univers am 1,000 mg 7-17 [id number] tablet by i ty of tablet 00:00: mouth 2 [place] 00 (two) Medical times Branch daily. metroNIDAZO 2018- Yes [id number] 500mg Take 1 Univers LE 500 mg 7-17 [id number] tablet by ity of tablet 00:00: mouth 2 [place] 00 (two) Medical times Branch daily. sulfamethox 2019- Yes [id number] 1{tbl} Take 1 Univers azole-trime 7-17 [id number] tablet by i ty of thoprim 00:00: mouth 2 [place] 800-160 mg 00 (two) Medical per tablet times Branch daily. atorvastati 2018- Yes [id number] 40mg Take 1 Univers n 40 mg 7-17 [id number] tablet by ity o f tablet 00:00: mouth at [place] 00 bedtime. Medical Branch HYDROcodone 2019- Yes [id number] 1{tbl} Take 1 Univers -acetaminop 7-17 [id number] tablet by i ty of hen 10-325 00:00: mouth [place] mg tablet 00 every 6 Medical (six) Branch hours as needed for Pain (scale 4-6). levETIRAcet 2018- Yes [id number] 1000mg Take 1 Univers am 1,000 mg 7-17 [id number] tablet by i ty of tablet 00:00: mouth 2 [place] 00 (two) Medical times Branch daily. metroNIDAZO 2019- Yes [id number] 500mg Take 1 Univers LE 500 mg 7-17 [id number] tablet by ity of tablet 00:00: mouth 2 [place] 00 (two) Medical times Branch daily. sulfamethox 2018- Yes [id number] 1{tbl} Take 1 Univers azole-trime 7-17 [id number] tablet by i ty of thoprim 00:00: mouth 2 [place] 800-160 mg 00 (two) Medical per tablet times Branch daily. atorvastati Yes [id number] 40mg Take 1 Univers n 40 mg 7-17 [id number] tablet by ity o f tablet 00:00: mouth at [place] 00 bedtime. Medical Branch HYDROcodone Yes [id number] 1{tbl} Take 1 Univers -acetaminop 7-17 [id number] tablet by i ty of hen 10-325 00:00: mouth [place] mg tablet 00 every 6 Medical (six) Branch hours as needed for Pain (scale 4-6). lovastatin Yes 20mg QD Take [address] (MEVACOR) 5-20 by mouth [facility] 20 MG 20:42: nightly. Medical tablet 31 Center aspirin/sahwn 2018- Yes 2{packe Take [address] icylamide/c 5-20 t} packets by Evelyn magana (BC 20:42: mouth Medic al HEADACHE 31 daily as Center POWDER needed ORAL) (For headache and pain relief). lovastatin Yes 20mg QD Take [address] (MEVACOR) 5-20 by mouth [facility] 20 MG 20:42: nightly. Medical tablet 31 Center aspirin/shawn Yes 2{packe Take [address] icylamide/c 5-20 t} packets by Evelyn magana (BC 20:42: mouth Medic al HEADACHE 31 daily as Center POWDER needed ORAL) (For headache and pain relief). lovastatin Yes 20mg QD Take [address] (MEVACOR) 5-20 by mouth [facility] 20 MG 20:42: nightly. Medical tablet 31 [place] aspirin/shawn Yes 2{packe Take 2 C HI [...] 00:00: daily. Medic al MG tablet 00 [place] amLODIPine Yes 10mg QD Take [address] (NORVASC) 4-01 by mouth [facility] 10 MG 00:00: daily. Medical tablet 00 [place] VENTOLIN Yes 1{puff} Inhale [address] HFA 90 4-01 puff by [facility] mcg/actuati 00:00: mouth via M edical on inhaler 00 inhaler 3 Cent er (three) times daily as needed for Shortness of Breath. lisinopril Yes 10mg QD Take [address] (PRINIVIL,Z 4-01 by mouth Luke s ESTRIL) 10 00:00: daily. Medic al MG tablet 00 [place] amLODIPine Yes 10mg QD Take [address] (NORVASC) 4-01 by mouth [facility] 10 MG 00:00: daily. Medical tablet 00 [place] VENTOLIN Yes 1{puff} Inhale [address] HFA 90 4-01 puff by [facility] mcg/actuati 00:00: mouth via M edical on inhaler 00 inhaler 3 Cent er (three) times daily as needed for Shortness of Breath. lisinopril Yes 10mg QD Take [address] (PRINIVIL,Z 4-01 by mouth Luke s ESTRIL) 10 00:00: daily. Medic al MG tablet [address] [place] [address] amLODIPine Yes 10mg QD Take [address] (NORVASC) 4-01 by mouth [facility] 10 MG 00:00: daily. Medical tablet [address] [place] [address] Sodium 2015-05 Yes IVPB, 150 Memori a Chloride 1-09 ml/hr, l 0.9% IV 14:00: PRN, Start Herm delisa date: 04/05/16 8:00:00 [employer], Duration: 30, 1,000 ml Sodium 2015-05 Yes IVPB, 150 Memori a Chloride 1-09 ml/hr, l 0.9% IV 14:00: PRN, Start Herm delisa date: 04/05/16 8:00:00 [employer] ST[employer], Duration: 30, 1,000 ml EPINEPHrine 2015-05 Yes Notes: Memoria 1- MEDICATION l 13:22: WASTE Kai Product Size: 1 mg Product Wasted: ___ mg Solu-CORTEF 2015-05 Yes Notes: Ed bandar 1- (Same as: l 13:22: Solu-JOHN Kai 00 F) Benadryl 2015-05 Yes Notes: Memoria 1- (Same as: l 13:22: Benadryl) [place] 00 EPINEPHrine 2015-05 Yes Notes: Memoria 1- MEDICATION l 13:22: WASTE [place] 00 Product Size: 1 mg Product Wasted: ___ mg Solu-CORTEF 2015-05 Yes Notes: Ed bandar 1-09 (Same as: l 13:22: Solu-JOHN Kai 00 F) Benadryl 2015-05 Yes Notes: Memoria 1- (Same as: l 13:22: Benadryl) Kai Sodium 2015-05 Yes IV, 0 Memoria Chloride 1-09 ml/hr, l 0.9% IV 13:21: PRN, PRN Raudel n 00 Blood Transfusio n, Start date: 04/05/16 7:21:00 [employer]ELING STORE[employer], Duration: 30, 250 ml heparin 2015-05 Yes Notes: Memoria flush - (Same as: l 13:21: Heparin [place] 00 Lock Flush) BD Normal 2015-05 Yes Notes: Memori a Saline - (Same as: l Flush 13:21: BD Kai 00 Posiflush) Benadryl 2015-05 Yes Notes: Memoria 06-05 (Same as: l 13:21: Benadryl) Kai 00 Sodium 2015-05 Yes IV, 0 Memoria Chloride 1-09 ml/hr, l 0.9% IV 13:21: PRN, PRN Raudel n 00 Blood Transfusio n, Start date: 04/05/16 7:21:00 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 Kai 00 (Same as: Tylenol) Tylenol 2015-05 Yes Notes: Do Memor ia - not exceed l 13:20: 4 gm/day. Kai 00 (Same as: Tylenol) Acetaminoph 2015-05 No Notes: Ed bandar en 325 MG / 0-18 (Same as: l Hydrocodone 11:34: [place] Denita nn Bitartrate 00 325/5) Do 5 MG Oral not exceed Tablet 4gm/day of [[place] acetaminop 5/325] hen. Acetaminoph 2015-05 No Notes: Ed bandar en 325 MG / 0-18 (Same as: l Hydrocodone 11:34: [place] Denita nn Bitartrate 00 325/5) Do 5 MG Oral not exceed Tablet 4gm/day of [[place] acetaminop 5/325] hen. Acetaminoph 2015-05 No 1 [...] No Notes: Memoria 0-18 (Same as: l 18: Zofran) Kai 00 MEDICATION WASTE Product Size: [...] 15 mg = 3 Mem oria Hydrochlori -23 tab, PO, l de 5 MG 17:22: [...] ) Oxycodone No Notes: Memori a Hydrochlori 02-17 (Same as: l de 5 MG 13:43: Roxicodone Herm delisa Oral Tablet 00 ) Ceftriaxone No Notes: Ed bandar 02-16 (Same As: l 20:00: Rocephin). Use with 100 mL NS and infuse over 30 min MEDICATION WASTE Product Size: 2000 mg Product Wasted: ___ mg Ceftriaxone No Notes: Ed bandar 02-16 (Same [...] 02-16 cap, PO, l capsule 12:57: After [place] 00 Dinner, 0 Refill(s) fluconazole Yes 200 mg = 2 Memoria 100 mg oral 02-16 tab, PO, l tablet 12:57: [id number], 0 Den[place] nn 00 Refill(s) pantoprazol Yes 40 mg = 1 M emoria e 40 mg 9-22 tab, PO, l oral 12:57: Before Kai enteric 00 Breakfast, coated 0 tablet Refill(s) Acetaminoph Yes 1 tab, PO, Memoria en 325 MG / 22 Q4H, PRN l Hydrocodone 12:57: Pain Score [place] Bitartrate 00 1-3, 0 5 MG Oral [...] 02-16 cap, PO, l capsule 12:57: After [place] 00 Dinner, 0 Refill(s) fluconazole Yes 200 mg = 2 Memoria 100 mg oral 02-16 tab, PO, l tablet 12:57: [id number], 0 Denita nn 00 Refill(s) pantoprazol Yes 40 mg = 1 M emoria e 40 mg - tab, PO, l oral 12:57: Before Kai enteric 00 Breakfast, coated 0 tablet Refill(s) Acetaminoph Yes 1 tab, PO, Memoria en 325 MG / 02-16 Q4H, PRN l Hydrocodone 12:57: Pain Score [place] Bitartrate 00 1-3, 0 5 MG Oral [...] Wasted: ___ mg Flomax No Notes: Memoria 18 (Same As: l 22:00: Flomax) "Do Not Crush" Flomax No Notes: Memoria 02-12 (Same As: [...] bandar 02-11 (Same as: l 21:00: Diflucan) Fluconazole No Notes: Ed bandar 02-11 (Same as: l 21:00: Diflucan) Dilaudid No Notes: Memoria 9 Same as: l 19:19: Dilaudid Dilaudid No Notes: Memoria 02-11 Same as: l 19:19: Dilaudid gabapentin No Notes: Memor ia 02-11 (Same as: l 18:00: Neurontin) gabapentin No Notes: Memor ia 02-11 (Same as: l 18:00: Neurontin) Naloxone No Notes: Memoria 02-11 Same as l 14:59: Narcan Lorazepam No Notes: Memori a 02-11 (Same as: l 14:59: Ativan) Ondansetron No 4 mg, Memor ia 02-11 Route: l 14:59: IVP, ONCE, Dosing Weight 96.023, kg, PRN Nausea & Vomiting, Start date: 02/12/16 9:59:00 CDT Glycopyrrol No Notes: Ed bandar ate -17 (Same as: l 14:59: Robinul) Flumazenil No [...] # of times Naloxone No Notes: Memoria 02-11 Same as l 14:59: Narcan Lorazepam No Notes: Memori a 02-11 (Same as: l 14:59: Ativan) Ondansetron No 4 mg, Memor ia 02-11 Route: l 14:59: IVP, ONCE, Dosing Weight 96.023, kg, PRN Nausea & Vomiting, Start date: 02/12/16 9:59:00 CDT Glycopyrrol No Notes: Ed bandar ate 02-11 (Same as: l 14:59: Robinul) Flumazenil No Notes: Memor ia -17 (Same as: l 14:59: Romazicon) Fentanyl No Notes: Memoria 17 (Same as: l 14:59: Sublimaze) Preservati ve free. Hydralazine No Notes: Ed bandar 9-17 (Same as: l 14:59: Apresoline ) Push over 5 minutes Hydromorpho No Notes: Ed bandar ne 02-11 Same as: l 14:59: Dilaudid Labetalol No 10 mg, 2 Ed bandar - mL, Route: l 14:59: IVP, Drug form: [...] INJ (ANES) 02-11 Total l 12:55: Volume: [place] 00 1,000, Start date: 02/12/16 7:55:00 CDT, Stop date: 02/12/16 8:55:00 CDT LR 1000 mL No Route: IV, M emoria INJ (ANES) 9-17 Total l 12:55: Volume: Kai 00 1,000, Start date: 02/12/16 7:55:00 CDT, Stop date: 02/12/16 8:55:00 CDT Ceftriaxone No Notes: Ed bandar 9-16 (Same As: l 18:00: Rocephin). [place] 00 Use with 100 mL NS and infuse over 30 min MEDICATION WASTE Product Size: 2000 mg Product Wasted: ___ mg Ceftriaxone No Notes: Ed bandar -16 (Same As: l 18:00: Rocephin). Kai 00 Use with 100 mL NS and infuse over 30 min MEDICATION WASTE Product Size: 2000 mg Product Wasted: ___ mg Dilaudid No Notes: Memoria -16 Same as: l 13:37: Dilaudid Kai 00 Dilaudid No Notes: Memoria 16 Same as: l 13:37: Dilaudid Kai 00 vancomycin No 2001 mg: Me moria 9-16 infuse l 11:00: over 2.5 [place] 00 hours vancomycin No 2001 mg: Me moria 9-16 infuse l 11:00: over 2.5 Kai 00 hours metoprolol No Notes: Memor ia 9-15 (Same as: l 14:00: Toprol XL) [place] 00 May split tab, but do not crush. metoprolol No Notes: Memor ia 9-15 (Same as: l 14:00: Toprol XL) Kai 00 May split tab, but do not crush. Alprazolam No Notes: Memor ia 1 MG Oral 9-15 With food l Tablet 13:19: or milk [place] [Xanax] 00 (Same as: Xanax) Alprazolam No Notes: Memor ia 1 MG Oral 9-15 With food l Tablet 13:19: or milk Kai [Xanax] 00 (Same as: Xanax) vancomycin No 2001 mg: Me moria 9-15 infuse l 10:00: over 2.5 Kai 00 hours vancomycin 0 No 2001 mg: Me moria 9-15 infuse l 10:00: over 2.5 [place] 00 hours Anoro 2016-0 No Anoro Memoria 62.5mcg/25 9-15 62.5mcg/25 l mcg 01:00: mcg, 1 [place] 00 puff, Route: INHALATION , RBID, 02/09/16 20:00:00 CDT, Duration: 30 day, Stop date: 03/10/16 8:00:00 CDT Anoro 2016-0 No Anoro Memoria 62.5mcg/25 9-15 62.5mcg/25 l mcg 01:00: mcg, 1 [place] 00 puff, Route: INHALATION , RBID, 02/09/16 20:00:00 CDT, Duration: 30 day, Stop date: 03/10/16 8:00:00 CDT ketOROLAC 2016-0 No 60 mg, Memori a 30 mg/mL 02-08 Route: l injectable 22:40: IVP, Drug He rmann solution 00 form: INJ, ONCE, Dosing Weight 96.023, kg, Start date: 02/09/16 17:40:00 CDT, Duration: 1 doses or times, Stop date: 02/09/16 17:40:00 CDT ketOROLAC 2016-0 No 60 mg, Memori a 30 mg/mL 02-08 Route: l injectable 22:40: IVP, Drug He rmann solution 00 form: INJ, ONCE, Dosing Weight 96.023, kg, Start date: 02/09/16 17:40:00 CDT, Duration: 1 doses or times, Stop date: 02/09/16 17:40:00 CDT Vancomycin 0 No Vancomycin M emoria Dosing per 9-14 Dosing per l RPh 19:51: RPh, ., Kai 00 Drug form: MISC, Route: MISC, PRN, PRN Other -See Comment, 02/09/16 14:51:00 CDT, Duration: 30 day, Stop date: 03/10/16 14:50:00 CDT Vancomycin 2015-0 No Vancomycin M emoria Dosing per 9-14 Dosing per l RPh 19:51: RPh, ., [place] 00 Drug form: MISC, Route: MISC, PRN, PRN Other -See Comment, 02/09/16 14:51:00 CDT, Duration: 30 day, Stop date: 03/10/16 14:50:00 CDT Dilaudid 2015-0 No Notes: Memoria 9-14 Same as: l 18:01: Dilaudid Kai 00 Dilaudid 2015-0 No Notes: Memoria 9-14 Same as: l 18:01: Dilaudid [place] 00 Sodium 2016-0 No 500 mL, Memoria Chloride 9-14 500 ml/hr, l 0.154 17:59: Infuse [place] MEQ/ML 00 Over: 1 Injectable hr, Route: Solution IV, 500, Drug form: INJ, ONCE, Priority: STAT, Dosing Weight 96.023 kg, Start date: 02/09/16 12:59:00 CDT, Duration: 1 doses or times, Stop date: 02/09/16 12:59:00 CDT Sodium 2016-0 No 500 mL, Memoria Chloride 9-14 500 ml/hr, l 0.154 17:59: Infuse Kai [...] e 9-14 Tablet l 14:00: should not [place] 00 be chewed or crushed. (Same as: Protonix) pantoprazol No Notes: Ed bandar e 9-14 Tablet l 14:00: should not [place] 00 be chewed or crushed. (Same as: Protonix) chlorhexidi No Notes: Ed bandar ne 9-14 (Same As: l gluconate 14:00: Hibiclens) He rmann 40 MG/ML 00 Medicated Liquid Soap Simvastatin No Notes: Ed bandar 9-14 (Same as: l 02:00: Zocor) [place] 00 Cefuroxime No 1.5 gm, Ed bandar 9-14 Route: l 02:00: IVPB, [place] 00 [id number], Dosing Weight 96.023, kg, Start date: 02/08/16 21:00:00 CDT, Duration: 3 doses or times, Stop date: 02/09/16 13:00:00 CDT Simvastatin No Notes: Ed bandar 02-08 (Same as: l 02:00: Zocor) [place] 00 Cefuroxime No 1.5 gm, Ed bandar 02-08 Route: l 02:00: IVPB, [place] 00 [id number], Dosing Weight 96.023, kg, Start date: 02/08/16 21:00:00 CDT, Duration: 3 doses or times, Stop date: 02/09/16 13:00:00 CDT Neutra-Phos No Notes: Ed bandar 02-08 Same as: l 01:04: Phos-Nak [place] 00 Mix 1 packet with 75 mL water or juice. Each packet has 160mg of sodium, 280mg of potassium, and 250mg of phosphorus Non-Formul tamara Item potassium No Notes: Memori a phosphate + 9-14 (Same as: l sodium 01:04: K [place] chloride 00 Phosphate. 0.9% 500 ml ) [...] Oxide -14 (Same as: l 01:04: Mag-Ox [place] 00 400) Magnesium oxide [id number]=500k g elemental magnesium Dose=____m g magnesium oxide (___mg elemental magnesium) Magnesium No Notes: Memori a Sulfate -14 WASTE: F/P l 01:04: - Sink; E [place] 00 - Municipal Trash Bin potassium No Notes: Memori a chloride -14 (Same as: l 01:04: Potassium [place] 00 [...] 9-14 15 mL, l sodium 01:04: Route: [place] chloride 00 IVPB, Drug 0.9% 500 ml [...] 9-14 mL, Route: l 01:04: IVP, Drug [place] 00 Form: INJ, Dosing Weight 96.023, kg, [...] / 02-08 (Same as: l Hydrocodone 01:04: [place] nn Bitartrate 00 325/5) Do 5 MG Oral not exceed Tablet 4gm/day of acetaminop hen. Acetaminoph No Notes: Do M emoria en 02-08 not exceed l 01:04: 4 gm/day. [place] 00 (Same as: Tylenol) D5W 1/2NS + No Notes: Ed bandar KCL 20mEq/L 02-08 PREMIX IV l 1000ml 01:04: - Do Not [place] (Premix) 00 Alter 1,000 mL WASTE: F/P - Sink; E - [facility] Trash Bin Neutra-Phos No Notes: Ed bandar - Same as: l 01:04: Phos-Nak [place] 00 Mix 1 packet with 75 mL water or juice. Each packet has 160mg of sodium, 280mg of potassium, and 250mg of phosphorus Non-Formul tamara Item potassium No Notes: Memori a phosphate + -14 (Same as: l sodium 01:04: K [place] chloride 00 Phosphate. 0.9% 500 ml ) [...] Oxide -14 (Same as: l 01:04: Mag-Ox [place] 00 400) Magnesium oxide 543oe=900f g elemental magnesium Dose=____m g magnesium oxide (___mg elemental magnesium) Magnesium No Notes: Memori a Sulfate 02-08 WASTE: F/P l 01:04: - Sink; E [place] 00 - [facility] Trash Bin potassium No Notes: Memori a chloride -14 (Same as: l 01:04: Potassium [place] 00 Chloride) sodium No 15 mmol, 5 [...] 9-14 15 mL, l sodium 01:04: Route: [place] chloride 00 IVPB, Drug 0.9% 500 ml form: INJ, INJ 500 mL PRN, Dosing Weight 96.023, kg, PRN Abnormal Lab Result, Start date: 02/08/16 20:04:00 CDT, Duration: 30 day, Stop date: 03/09/16 20:03:00 CDT, FOR ICU USE ONLY Calcium No Notes: Mem[facility] Carbonate 02-08 (Same As: l 500 MG 01:04: Tums) [place] Chewable 00 Calcium Tablet Carbonate 500 mg = 200 mg elemental calcium Dose = mg calcium carbonate ( mg elemental calcium) Calcium No Notes: Mem[facility] Gluconate 02-08 WASTE: F/P l 01:04: - Sink; E [place] 00 - [facility] Tra Bin Albuterol No Notes: SEE Me moria [...] Memoria 02-08 (Same as: l 01:04: Colace) [place] 00 (Do Not Crush) Glucagon No 1 mg, Memoria 9-14 Route: IM, l 01:04: Drug form: [place] 00 PDR/INJ, PRN, Dosing Weight 96.023, kg, PRN Blood Glucose Results, Start date: 02/08/16 20:04:00 CDT, Duration: 30 day, Stop date: 03/09/16 20:03:00 CDT Acetaminoph No Notes: Ed bandar en 325 MG / 02-08 (Same as: l Hydrocodone 01:04: [place] Denita nn Bitartrate 00 325/5) Do 5 MG Oral not exceed Tablet 4gm/day of acetaminop hen. Acetaminoph No Notes: Do M emoria en 02-08 not exceed l 01:04: 4 gm/day. [place] (Same as: Tylenol) D5W 1/2NS + No Notes: Ed bandar KCL 20mEq/L 02-08 PREMIX IV l 1000ml 01:04: - Do Not [place] (Premix) 00 Alter 1,000 mL WASTE: F/P [...] 02-07 Same as: l 14:59: Dilaudid Labetalol 2016-0 No 10 mg, 2 Ed bandar 9-13 [...] INJ (ANES) 02-07 Total l 14:08: Volume: [place] 00 1,000, Start date: 02/08/16 9:08:00 CDT, Stop date: 02/08/16 10:08:00 CDT LR 1000 mL No Route: IV, M emoria INJ (ANES) 02-07 Total l 14:08: Volume: [place] 00 1,000, Start date: 02/08/16 9:08:00 CDT, Stop date: 02/08/16 10:08:00 CDT heparin No Route: IV, Ed bandar (ANES) 02-07 Drug form: l 13:55: INJ, ONCE, Stop date: 02/08/16 8:55:00 CDT heparin No Route: IV, Ed bandar [...] 2016-0 No Route: IV, Me moria (ANES) 9- Drug form: l 13:40: SOLN, [place] 00 ONCE, Stop date: 02/08/16 8:40:00 CDT rocuronium 2015-0 No Route: IV, M emoria (ANES) 9- Drug form: l 13:40: INJ, ONCE, Stop date: 02/08/16 8:40:00 CDT fentaNYL 2016-0 No Route: IV, Mem oria (ANES) 9- Drug form: l 13:40: INJ, ONCE, Stop date: 02/08/16 8:40:00 CDT propofol 2016-0 No Route: IV, Mem oria (ANES) 9- Drug form: l 13:40: INJ, ONCE, Stop date: 02/08/16 8:40:00 CDT lidocaine 2016-0 No Route: IV, Me moria (ANES) 9- Drug form: l 13:40: INJ, ONCE, Stop date: 02/08/16 8:40:00 CDT midazolam 2016-0 No Route: IV, Me moria (ANES) 9- Drug form: l 13:40: SOLN, ONCE, Stop date: 02/08/16 8:40:00 CDT rocuronium 2015-0 No Route: IV, M emoria (ANES) 9- Drug form: l 13:40: INJ, ONCE, Stop date: 02/08/16 8:40:00 CDT piperacilli 2015-0 No IV, ONCE Me moria n-tazobacta 9-13 l m (ANES) 13:25: [place] 00 famotidine 2015-0 No Route: IV, M emoria (ANES) 9-13 Drug form: l 13:25: INJ, ONCE, Stop date: 02/08/16 8:25:00 CDT piperacilli 2015-0 No IV, ONCE Me moria n-tazobacta 9-13 l m (ANES) 13:25: [place] 00 famotidine 2015-0 No Route: IV, M emoria (ANES) 9- Drug form: l 13:25: INJ, ONCE, Stop date: 02/08/16 8:25:00 CDT Rifadin IV 0 No Notes: Memor ia 02-07 Child:10-2 l 12:00: 0mg/kg ,<= [place] 00 600mg/day. Protect from light (Same as: Rifadin) Lidocaine 2015-0 No 5 mg, Memoria Hydrochlori 02-07 Route: l de 10 MG/ML 12:00: INTRADERM, [place] Injectable 00 Dosing Solution Weight 98.636, kg, ONCALL, Start date: 02/08/16 7:00:00 CDT, Duration: 30 day, Stop date: 03/09/16 6:59:00 CDT Rifadin IV 0 No Notes: Memor ia 02-07 Child:10-2 l 12:00: 0mg/kg ,<= [place] 00 600mg/day. Protect from light (Same as: Rifadin) Lidocaine 2015-0 No 5 mg, Memoria Hydrochlori 02-07 Route: [...] day, Stop date: 03/09/16 6:30:00 CDT Lactated 2015-0 No 1,000 mL, Ed bandar Ringers 02-07 Rate: 40 l 1,000 mL 11:31: ml/hr, [place] 00 Infuse over: 25 hr, Route: IV, Dosing Weight 98.636 kg, Total Volume: 1,000, Start date: 02/08/16 6:31:00 CDT, Duration: 30 day, Stop date: 03/09/16 6:30:00 CDT Roxicodone 2015-0 No 15 mg, Memor ia 9-12 Route: PO, l 17:00: Drug form: [place] 00 TAB, Q4H, Start date: 02/07/16 12:00:00 CDT, Stop date: 03/08/16 8:00:00 CDT Roxicodone 2015-0 No 15 mg, Memor ia 9-12 Route: PO, l 17:00: Drug form: [place] 00 TAB, Q4H, Start date: 02/07/16 12:00:00 CDT, Stop date: 03/08/16 8:00:00 CDT Roxicodone 2015-0 No Notes: Memor ia 9-12 (Same as: l 15:35: Roxicodone ) Roxicodone 2015-0 No Notes: Memor ia -12 (Same as: l 15:35: Roxicodone ) oxyCODONE 2015-0 No 15 mg, Memori a 10 mg 9-10 Route: PO, l extended 23:00: Drug form: Her cook release 00 ERTAB, Q6H, Start date: 02/05/16 18:00:00 CDT, Duration: 30 day, Stop date: 03/06/16 12:00:00 CDT oxyCODONE 2015-0 No 15 mg, Memori a 10 mg 9-10 Route: PO, l extended 23:00: Drug form: Her cook release 00 ERTAB, Q6H, Start date: 02/05/16 18:00:00 CDT, Duration: 30 day, Stop date: 03/06/16 12:00:00 CDT Roxicodone 2015-0 No Notes: Memor ia 9-10 (Same as: l 20:21: Roxicodone ) Roxicodone 2015-0 No Notes: Memor ia 9-10 (Same as: l 20:21: Roxicodone ) Dilaudid 2015-0 No Notes: Memoria 9-10 Same as: l 20:04: Dilaudid Dilaudid 2015-0 No Notes: Memoria 9-10 Same as: l 20:04: Dilaudid sodium 2015-0 No 1,000 mL, Memori a [...] moria 02-01 infuse l 20:00: over 2.5 [place] 00 hours vancomycin No 2000 mg: Me moria 02-01 infuse l 20:00: over 2.5 [place] 00 hours atorvastati No Notes: Ed bandar n 02-01 (Same as: l 02:00: Lipitor) [place] atorvastati No Notes: Ed bandar n 02-01 (Same as: l 02:00: Lipitor) [place] Vancomycin No 1 mame Memori a 01-31 Route: l 20:00: MISC, [place] Dosing Weight 97.273, kg, ONCALL, Start date: 02/01/16 15:00:00 CDT, Duration: 1 doses or times, Pharmacy to dose Vancomycin No 1 mame Memori a 01-31 Route: l 20:00: MISC, [place] 00 Dosing Weight 97.273, kg, ONCALL, Start date: 02/01/16 15:00:00 CDT, Duration: 1 doses or times, Pharmacy to dose Acetaminoph No Notes: Do M emoria en 325 MG / 01-31 not exceed l Hydrocodone 18:10: 4gm/day of Kai Bitartrate 00 acetaminop 10 MG Oral hen. (Same Tablet as: [place] [[place] 325/10) ] Acetaminoph No Notes: Do M emoria en 325 MG / 01-31 not exceed l Hydrocodone 18:10: 4gm/day of [place] Bitartrate 00 acetaminop 10 MG Oral hen. (Same Tablet as: [place] [[place] 325/10) 10/325] Tylenol No Notes: Do Memor ia 01-31 not exceed l 18:02: 4 gm/day. [place] 00 (Same as: Tylenol) Tylenol No Notes: Do Memor ia 01-31 not exceed l 18:02: 4 gm/day. [place] 00 (Same as: Tylenol) Vancomycin No 2000 mg: Me moria 01-31 infuse l 18:00: over 2.5 [place] 00 hours MEDICATION WASTE Product Size: 1000 mg Product Wasted: ___ mg Zosyn No Notes: Memoria 01-31 (Same as: l 18:00: Zosyn) Dosing based on Piperacill in component MEDICATION WASTE Product Size: 3375 mg Product Wasted: ___ mg Vancomycin No 2001 mg: Me moria 01-31 [...] crush. [Toprol] Lisinopril No Notes: Memor ia - (Same as: l 14:00: Prinivil, Zestril) Amlodipine No Notes: Memor ia 9- (Same as: l 14:00: Norvasc) cilostazol No Notes: Memor ia 01-31 Non-Formul l 14:00: tamara Drug. (Same As: Pletal) Doxazosin No Notes: Memori a 01-31 (Same as: l 14:00: Cardura) gabapentin No Notes: Memor ia 9- (Same as: l 14:00: Neurontin) 24 HR No Notes: Memoria Metoprolol - (Same as: l Tartrate 14:00: Toprol XL) Her cook 100 MG 00 May split Extended tab, but Release do not Tablet crush. [Toprol] Alprazolam No Notes: Memor ia 2 MG Oral 01-31 With food l Tablet 13:23: or milk (Same as: Xanax) Alprazolam No Notes: Memor ia 2 MG Oral 01-31 With food l Tablet 13:23: or milk (Same as: Xanax) Albuterol No Notes: Memori a 0.833 MG/ML 01-31 (Same as: l / 13:22: Duoneb) [place] Ipratropium 00 [place] 0.167 MG/ML Inhalant Solution Albuterol No Notes: Memori a 0.833 MG/ML 01-31 (Same as: l / 13:22: Duoneb) [place] Ipratropium 00 [place] 0.167 MG/ML Inhalant Solution Zofran No Notes: Memoria 9- (Same as: l 06:24: Zofran) MEDICATION WASTE Product Size: 4 mg Product Wasted: ___ mg Zofran No Notes: Memoria 01-31 (Same as: l 06:24: Zofran) [place] 00 MEDICATION WASTE Product Size: 4 mg Product Wasted: ___ mg Dilaudid No Notes: Memoria 01-31 Same as: l 06:23: Dilaudid [place] Dilaudid No Notes: Memoria 01-31 Same as: l 06:23: Dilaudid [place] Acetaminoph No 1 tab, PO, Memoria en [...] tab, PO, l tablet 04:53: Daily, # [place] 00 30 tab, 0 Refill(s) atorvastati Yes 40 mg = 1 M emoria n 40 mg 01-31 tab, PO, l oral tablet 04:53: Bedtime, # [place] 00 30 tab, 0 Refill(s) Anoro Yes [...] Raudel n 00 tab, 0 Refill(s) Acetaminoph 2016 No 1 tab, PO, Memoria en 300 [...] tab, PO, l tablet 04:53: Daily, # [place] 00 30 tab, 0 Refill(s) atorvastati Yes 40 mg = 1 M emoria n 40 mg 01-31 tab, PO, l oral tablet 04:53: Bedtime, # [place] 00 30 tab, 0 Refill(s) Anoro Yes 1 puff, Memoria Ellipta 01-31 INHALER, l 62.5 mcg-25 04:53: Daily, # 1 [place] mcg 00 ea, 3 inhalation Refill(s) powder Alprazolam Yes 2 mg = 1 Mem oria 2 MG Oral 01-31 tab, PO, l Tablet 04:53: BID, PRN [place] 00 Anxiety, # 20 tab, 0 Refill(s) [...] CDT, Stop date: 01/31/16 22:28:00 CDT Acetaminoph No 650 mg, Mem oria en 01-31 Route: PO, l 03:28: Drug form: [place] 00 TAB, ONCE, Dosing Weight 95, kg, Priority: STAT, Start date: 01/31/16 22:28:00 CDT, Stop date: 01/31/16 22:28:00 CDT Piperacilli No Notes: Ed bandar n 01-30 (Same as: l tazobactam 22:57: Zosyn) Denita nn 00 Dosing based on Piperacill in component MEDICATION WASTE Product Size: 3375 mg Product Wasted: ___ mg Vancomycin No 2000 mg: Me moria 01-30 infuse l 22:57: over 2.5 [place] 00 hours MEDICATION WASTE Product Size: 1000 mg Product Wasted: ___ mg Piperacilli No Notes: Ed bandar n 01-30 (Same as: l tazobactam 22:57: Zosyn) Denita nn 00 Dosing based on Piperacill in component MEDICATION WASTE Product Size: 3375 mg Product Wasted: ___ mg Vancomycin 2015- No 2000 mg: Me moria 01-30 infuse [...] Chloride 01-30 2,000 l 0.154 22:04: ml/hr, [place] MEQ/ML 00 Infuse Injectable Over: 30 Solution [...] 10 MG Oral hen. (Same Tablet as: [place] [[place] 325/10) 10325] Acetaminoph No Notes: Do M emoria en 325 MG / 01-30 not exceed l Hydrocodone 21:57: 4gm/day of [place] Bitartrate 00 acetaminop 10 MG Oral hen. (Same Tablet as: [place] [[place] 325/10) 10325] Amlodipine Yes 10 mg, PO, M emoria 9-05 Daily, 0 l 21:17: Refill(s) gabapentin Yes 300 mg, Ed bandar 01-30 PO, BID, 0 l 21:17: Refill(s) Amlodipine Yes 10 mg, PO, M emoria 05 Daily, 0 l 21:17: Refill(s) gabapentin Yes 300 mg, Ed bandar 05 PO, BID, 0 l 21:17: Refill(s) atorvastati No Notes: Ed bandar n 02-17 (Same As: l 02:00: Lipitor) atorvastati No Notes: Ed bandar n 02-17 (Same As: l 02:00: Lipitor) lovastatin Yes 20 mg = 1 Me moria 20 mg oral 9-22 tab, PO, l tablet 19:49: Bedtime, # Denita nn 00 30 tab, 0 Refill(s), given to patient lovastatin Yes 20 mg = 1 Me moria 20 mg oral 9-22 tab, PO, l tablet 19:49: Bedtime, # Denita nn 00 30 tab, 0 Refill(s), given to patient Hydrochloro No 1 tab, Ed bandar thiazide 02-16 Route: PO, l 12.5 MG / 14:00: Drug Form: [place] Lisinopril 00 TAB, 20 MG Oral Dosing Tablet Weight 98.267, kg, Daily, Start date: 02/16/15 9:00:00, Duration: 30 day, Stop date: 03/17/15 9:00:00 Prinivil No Notes: Memoria 02-16 (Same as: l 14:00: Prinivil, [place] 00 Zestril) metoprolol No Notes: Memor ia tartrate 02-16 (Same as: l 14:00: Lopressor) [place] 00 Microzide No Notes: Memori a 02-16 [...] 12.5 MG / 14:00: Drug Form: Michael rmann Lisinopril 00 TAB, 20 MG Oral Dosing Tablet Weight 98.267, kg, Daily, Start date: 02/16/15 9:00:00, Duration: 30 day, Stop date: 03/17/15 9:00:00 Prinivil No Notes: Memoria 02-16 (Same as: l 14:00: Prinivil, [place] 00 Zestril) metoprolol No Notes: Memor ia tartrate 02-16 (Same as: l 14:00: Lopressor) [place] Microzide No Notes: Memori a 02-16 (Same as: l 14:00: Hydrodiuri [place] 00 l). Give with food. pneumococca No [...] / 02-16 (Same as: l Hydrocodone 04:39: [place] Denita nn Bitartrate 00 325/5) Do 5 MG Oral not exceed Tablet 4gm/day of [[place] acetaminop 5/325] hen. Alprazolam No Notes: Memor ia 0.25 MG 02-16 With food l Oral Tablet 04:39: or milk Her cook [Xanax] 00 (Same as: Xanax) Acetaminoph No Notes: Ed bandar en 325 MG / 02-16 (Same as: l Hydrocodone 04:39: [place] Denita nn Bitartrate 00 325/5) Do 5 MG Oral not exceed Tablet 4gm/day of [[place] acetaminop 5/325] hen. Tessalon No Notes: Memoria Perles 02-16 (Same As: l 01:00: Tessalon [place] 00 Perles) "Do Not Crush" Tessalon No Notes: Memoria Perles 02-16 (Same As: l 01:00: Tessalon [place] 00 Perles) "Do Not Crush" Acetaminoph Yes 1 tab, PO, Memoria en 325 MG / 02-16 Q12H, PRN l Hydrocodone 00:48: Pain, # 30 [place] Bitartrate 00 tab, 0 5 MG Oral Refill(s) Tablet [[place] 5/325] Alprazolam Yes 0.25 mg = Me moria 0.25 MG 02-16 1 tab, PO, l Oral Tablet 00:48: BID, PRN [place] [Xanax] 00 Anxiety, Stress, # 20 tab, 0 Refill(s) metoprolol Yes 25 mg, PO, M emoria tartrate 02-16 BID, 0 l 00:48: Refill(s) Kai Acetaminoph Yes 1 tab, PO, Memoria en 325 MG / 02-16 Q12H, PRN l Hydrocodone 00:48: Pain, # 30 [place] Bitartrate 00 tab, 0 5 MG Oral Refill(s) Tablet [[place] 5/325] Alprazolam Yes 0.25 mg = Me moria 0.25 MG 02-16 1 tab, PO, l Oral Tablet 00:48: BID, PRN He rmann [Xanax] 00 Anxiety, Stress, # 20 tab, 0 Refill(s) metoprolol Yes 25 mg, PO, M emoria tartrate 02-16 BID, 0 l 00:48: Refill(s) NS 1,000 mL No 1,000 mL, M emoria 02-15 Rate: 75 l 23:04: ml/hr, [place] Infuse over: 13.3 hr, Route: IV, Dosing Weight 13.636 kg, Total Volume: 1,000, Start date: 02/15/15 18:04:00, Duration: 30 day, Stop date: 03/17/15 18:03:00 NS 1,000 mL No 1,000 mL, M emoria 02-15 Rate: 75 l 23:04: ml/hr, [place] 00 Infuse over: 13.3 hr, Route: IV, Dosing Weight 13.636 kg, Total Volume: 1,000, Start date: 02/15/15 18:04:00, Duration: 30 day, Stop date: 03/17/15 18:03:00 Xopenex No Notes: SEE Ed bandar 02-15 RT l 23:03: DOCUMENTAT [place] 00 ION (Same as:Xopenex ) Non-Formul tamara Acetaminoph No Notes: Do M emoria en 325 MG / 02-15 not exceed l Hydrocodone 23:03: 4gm/day of [place] Bitartrate 00 acetaminop 10 MG Oral hen. (Same Tablet as: [place] [[place] 325/10) 10/325] Xopenex No Notes: SEE Ed bandar 02-15 RT l 23:03: DOCUMENTAT [place] 00 ION (Same as:Xopenex ) Non-Formul tamara Acetaminoph No Notes: Do M emoria en 325 MG / 02-15 not exceed l Hydrocodone 23:03: 4gm/day of [place] Bitartrate 00 acetaminop 10 MG Oral hen. (Same Tablet as: [place] [[place] 325/10) 10/325] Albuterol No Notes: Memori a 0.833 MG/ML 02-15 (Same as: l / 20:51: Duoneb) [place] Ipratropium 00 [place] 0.167 MG/ML Inhalant Solution [DuoNeb] Albuterol No Notes: Memori a 0.833 MG/ML 02-15 (Same as: l / 20:51: Duoneb) [place] Ipratropium 00 [place] 0.167 MG/ML Inhalant Solution [DuoNeb] Aspirin No Notes: Memoria 02-15 Take with l 20:00: food. Aspirin No Notes: Memoria 9-21 Take with l 20:00: food. tramadol Yes [...] Refill(s) Tylenol No Notes: Do Memor ia 15 not exceed l 20:47: 4 gm/day. [place] 00 (Same as: Tylenol) Tylenol No Notes: Do Memor ia 9-15 not exceed l 20:47: 4 gm/day. (Same as: Tylenol) Sodium No 1,000 mL, Memori a Chloride 8-29 1,000 l 0.154 19:39: ml/hr, [place] MEQ/ML 00 Infuse Injectable Over: 1 Solution hr, Route: IV, 1,000, Drug form: INJ, ONCE, Priority: STAT, Dosing Weight 104.545 kg, Start date: 01/23/15 14:39:00, Duration: 1 doses or times, Stop date: 01/23/15 14:39:00 Saline No Notes: Memoria Flush 0.9% 8-29 preservati l 19:39: ve free. Sodium No 1,000 mL, Memori a Chloride 8-29 1,000 l 0.154 19:39: ml/hr, [place] MEQ/ML 00 Infuse Injectable Over: 1 Solution hr, Route: IV, 1,000, Drug form: INJ, ONCE, Priority: STAT, Dosing Weight 104.545 kg, Start date: 01/23/15 14:39:00, Duration: 1 doses or times, Stop date: 01/23/15 14:39:00 Saline No Notes: Memoria Flush 0.9% 8-29 preservati l 19:39: ve free. Immunizations Ordered Immunization Filled Immunization Date Status Commen ts Source Name Name pneumococcal 2015-02-16 Completed [facility] 23-valent vaccine 13:53:00 [place] pneumococcal 2015-02-16 Completed [facility] 23-valent vaccine 13:53:00 Kai Vital Signs Vital Name Observation Time Observation Value Comments Source Systolic blood 2021-04-04 05:00:00 102 mm[Hg] [facility] Diastolic blood 2021-04-04 05:00:00 62 mm[Hg] [facility] 2021-04-04 05:00:00 89 /min [facility] Oxygen saturation in 2021-04-04 05:00:00 99 /min [facility] Arterial blood by [facility] Pulse oximetry Branch Respiratory rate 2021-04-04 04:00:00 16 /min [facility] Body temperature 2021-04-04 03:37:[address] [facility] Body height 2021-04-04 03:37:00 185.4 cm [facility] Body weight 2021-04-04 03:37:00 72.576 kg [facility] BMI 2021-04-04 03:37:00 21.11 kg/m2 [facility] WEIGHT 2020-01-02 00:00:00 85.276 kg WEIGHT 2020-01-02 00:00:00 85.276 kg Systolic (mm Hg) 2016-04-05 18:57:00 Ed rial [place] Diastolic (mm Hg) 2016-04-05 18:57:00 Mem orial [place] Respitory Rate 2016-04-05 18:57:00 Memori al Kai Heart Rate 2016-04-05 18:57:00 [facility] [place] Systolic (mm Hg) 2016-04-05 18:27:00 Ed rial [place] Diastolic (mm Hg) 2016-04-05 18:27:00 Mem orial [place] Respitory Rate 2016-04-05 18:27:00 Memori al [place] Heart Rate 2016-04-05 18:27:00 [facility] [place] Respitory Rate 2016-04-05 17:57:00 Memori al [place] Heart Rate 2016-04-05 17:57:00 [facility] [place] Systolic (mm Hg) 2016-04-05 17:57:00 Ed rial Kai Diastolic (mm Hg) 2016-04-05 17:57:00 Mem orial [place] Temperature Oral (F) 2016-04-05 17:35:00 97.7 F [facility] [place] Temperature Oral (F) 2016-04-05 17:27:00 97.7 F [facility] [place] Temperature Oral (F) 2016-04-05 16:22:00 98.2 F [facility] [place] Weight 2016-04-05 13:20:00 [facility] [place] BMI Calculated 2016-04-05 13:20:00 Memori al [place] Height 2016-04-05 13:20:00 185 cm [facility] [place] Respitory Rate 2016-03-14 11:00:00 Memori al Kai [...] Diastolic (mm Hg) 2016-03-14 09:00:00 Mem orial [place] Temperature Oral (F) 2016-03-14 05:00:00 98.7 F [facility] [place] Heart Rate 2016-03-14 03:48:00 [facility] [place] BMI Calculated 2016-03-13 23:42:00 Memori al [place] Weight 2016-03-13 23:42:00 [facility] [place] Temperature Oral (F) 2016-03-13 23:42:00 98.6 F [facility] [place] Height 2016-03-13 23:42:00 185.42 cm [facility] [place] Heart Rate 2016-03-13 23:42:00 [facility] [place] Heart Rate 2016-02-18 19:19:00 [facility] [place] Temperature Oral (F) 2016-02-18 19:19:00 98.8 F [facility] [place] Respitory Rate 2016-02-18 19:19:00 Memori al [place] Systolic (mm Hg) 2016-02-18 19:19:00 Ed rial [place] Diastolic (mm Hg) 2016-02-18 19:19:00 Mem orial [place] Temperature Oral (F) 2016-02-18 15:28:00 98.3 F [facility] [place] Heart Rate 2016-02-18 15:28:00 [facility] [place] Systolic (mm Hg) 2016-02-18 15:28:00 Ed rial [place] Diastolic (mm Hg) 2016-02-18 15:28:00 Mem orial [place] Respitory Rate 2016-02-18 15:28:00 Memori al [place] Temperature Oral (F) 2016-02-18 12:40:00 98.2 F [facility] [place] Heart Rate 2016-02-18 12:40:00 [facility] [place] Systolic (mm Hg) 2016-02-18 12:40:00 Ed rial [place] Diastolic (mm Hg) 2016-02-18 12:40:00 Mem orial [place] Respitory Rate 2016-02-18 12:40:00 Memori al [place] Weight 2016-02-08 11:10:00 [facility] [place] BMI Calculated 2016-02-08 10:24:00 Memori al [place] Weight 2016-02-08 10:24:00 [facility] [place] Height 2016-02-08 10:24:00 185.42 cm [facility] [place] Weight 2016-02-01 04:41:00 [facility] [place] BMI Calculated 2016-02-01 04:41:00 Memori al [place] Height 2016-02-01 04:41:00 185.42 cm [facility] [place] Height 2016-01-31 19:21:00 185.42 cm [facility] [place] BMI Calculated 2016-01-31 19:21:00 Memori al Kia Respitory Rate 2015-02-16 18:18:00 Memori al [place] Temperature Oral (F) 2015-02-16 17:50:00 98.0 F [facility] [place] Respitory Rate 2015-02-16 17:50:00 Memori al [place] Heart Rate 2015-02-16 17:50:00 [facility] [place] Systolic (mm Hg) 2015-02-16 17:50:00 Ed rial [place] Diastolic (mm Hg) 2015-02-16 17:50:00 Mem orial [place] Temperature Oral (F) 2015-02-16 12:35:00 98.2 F [facility] [place] Heart Rate 2015-02-16 12:35:00 [facility] [place] Systolic (mm Hg) 2015-02-16 12:35:00 Ed rial [place] Diastolic (mm Hg) 2015-02-16 12:35:00 [facility] Respitory Rate 2015-02-16 12:35:00 [facility] [place] Temperature Oral (F) 2015-02-16 09:00:00 97.5 F [facility] Systolic (mm Hg) 2015-02-16 09:00:00 [facility] [place] Diastolic (mm Hg) 2015-02-16 09:00:00 [facility] Heart Rate 2015-02-16 09:00:00 [facility] Height 2015-02-16 00:50:00 185.42 cm [facility] BMI Calculated 2015-02-16 00:50:00 [facility] Weight 2015-02-16 00:50:00 [facility] Weight 2015-02-15 17:48:00 [facility] BMI Calculated 2015-02-15 17:48:00 [facility] [place] Height 2015-02-15 17:48:00 185.42 cm [facility] Temperature Oral (F) 2015-02-09 21:12:00 98.2 F [facility] Heart Rate 2015-02-09 21:12:00 [facility] Respitory Rate 2015-02-09 21:12:00 [facility] Systolic (mm Hg) 2015-02-09 21:12:00 [facility] [place] Diastolic (mm Hg) 2015-02-09 21:12:00 [facility] [place] BMI Calculated 2015-02-09 20:27:00 [facility] Weight 2015-02-09 20:27:00 [facility] Height 2015-02-09 20:27:00 185.42 cm [facility] Systolic (mm Hg) 2015-02-09 20:27:00 [facility] [place] Diastolic (mm Hg) 2015-02-09 20:27:00 [facility] [place] Heart Rate 2015-02-09 20:27:00 [facility] Respitory Rate 2015-02-09 20:27:00 [facility] Systolic (mm Hg) 2015-01-23 23:00:00 [facility] Diastolic (mm Hg) 2015-01-23 23:00:00 [facility] Systolic (mm Hg) 2015-01-23 22:00:00 [facility] [place] Diastolic (mm Hg) 2015-01-23 22:00:00 [facility] Systolic (mm Hg) 2015-01-23 21:00:00 [facility] Diastolic (mm Hg) 2015-01-23 21:00:00 [facility] Respitory Rate 2015-01-23 19:15:00 Thomas Harrell Weight 2015-01-23 18:26:00 Chac[facility] Height 2015-01-23 18:26:00 185.42 cm Chac[facility] Abarcaann BMI Calculated 2015-01-23 18:26:00 Thomas Harrell Respitory Rate 2015-01-23 18:26:00 Thomas holliday [facility] Heart Rate 2015-01-23 18:26:00 Chacorta Abarcaann Temperature Oral (F) 2015-01-23 18:26:00 98.5 F [facility] Abarca[facility] Procedures Procedure Date / Time Performing Clinician Source Performed CT HEAD WO CONTRAST 2021-04-04 04:32:50 [facility] Antunez [facility] XR CERVICAL SPINE 3 VW 2021-04-04 04:21:36 Majo Antunez [facility] XR SHOULDER 2+ VW RIGHT 2021-04-04 04:21:36 Majo Antunez [facility] BASIC METABOLIC PANEL 2021-04-04 03:59:00 Majo Antunez [facility] (NA, K, CL, CO2, [facility] GLUCOSE, BUN, CREATININE, CA) CBC WITH DIFF 2021-04-04 03:59:00 Majo Antunez [facility] NOTICE OF PRIVACY 2021-04-04 03:21:27 Doctor Unassigned, No Univ [facility] PRACTICES Name [facility] CONSENT/REFUSAL FOR 2021-04-04 03:20:48 [facility] Name [facility] Amputation of [facility] toe<sup>1</sup> Blood transfusion [facility] Plan of Care Planned Activity Planned Date Details Comments Source Future Scheduled 2022-01-26 INFLUENZA VACCINE (#1) [facility] [code = INFLUENZA Medical Ce nter VACCINE (#1)] Future Scheduled 2022-01-26 INFLUENZA VACCINE (#1) [facility] 00:00:00 [code = INFLUENZA Medical Ce nter VACCINE (#1)] Future Scheduled 2021-05-[address] [facility] 00:00:00 (12+) [code = Medical Center DEPRESSION SCREENING (12+)] Future Scheduled 2021-05-[address] [facility] 00:00:00 (12+) [code = [facility] DEPRESSION SCREENING (12+)] Future Scheduled 2020-01-27 [...] [facility] 00:[facility]:00 2) [code = [facility] VACCINES (1 of 2)] Future Scheduled 2014 SHINGLES VACCINES ([address] [facility] 00:00:00 2) [code = SHINGLES [facility] VACCINES (1 of 2)] Future Scheduled 1999-12-15 Lipid panel (procedure) [facility] 00:00:00 [code = 78658609] Medical Ce nter Future Scheduled 1999-12-15 Lipid panel (procedure) [facility] 00:00:00 [code = 70473172] Medical Ce nter Future Scheduled 1999-12-15 Lipid panel (procedure) [facility] 00:00:00 [code = 47930235] Medical Ce nter Future Scheduled 1983-12-15 DTAP/TDAP/TD VACCINES [facility] 00:00:00 (1 - Tdap) [code = Medical C enter DTAP/TDAP/TD VACCINES (1 - Tdap)] Future Scheduled 1983-12-15 DTAP/TDAP/TD VACCINES [facility] 00:00:00 (1 - Tdap) [code = Medical C enter DTAP/TDAP/TD VACCINES (1 - Tdap)] Future Scheduled 1982 HEPATITIS C [facility]CRE[facility]ING [facility]:00[facility]00 [code = HEPATITIS C Medical Center SCREENING] Future Scheduled 1982 HEPATITIS C [facility]:00[facility] [code = HEPATITIS C Medical Center SCREENING] Future Scheduled 1965-06-16 COVID-19 VACCINE (#1) [facility] 00:00:00 [code = COVID-[address] VACCINE (#1)] Future Scheduled 1965-06-16 COVID-19 VACCINE (#1) [facility] 00:00:00 [code = COVID-[address] VACCINE (#1)] Future Scheduled 1964 CT Colonography (combo) [facility] 00:00:00 [code = CT Colonography [facility] (combo)] Future Scheduled 1964 Screening for malignant [facility] 00:00:00 neoplasm of colon Medical Ce nter (procedure) [code = 900959528] Future Scheduled 1964 Screening for malignant [facility] 00:00:00 neoplasm of colon Medical Ce nter (procedure) [code = 662343858] Future Scheduled 1964 Screening for malignant [facility] 00:00:00 neoplasm of colon Medical Ce nter (procedure) [code = 180696064] Future Scheduled 1964 Screening for malignant [facility] 00:00:00 neoplasm of colon Medical Ce nter (procedure) [code = 292356449] Future Scheduled 1964 Sigmoidoscopy [code = [facility] S[facility]oscopy] Medical Cente r Future Scheduled 1964 Screening for malignant [facility] 00:00:00 neoplasm of colon Medical Ce nter (procedure) [code = 811819115] Future Scheduled 1964 CT Colonography (combo) [facility] 00:00:00 [code = CT Colonography [facility] (combo)] Future Scheduled 1964 Screening for malignant [facility] 00:00:00 neoplasm of colon Medical Ce nter (procedure) [code = 812780890] Future Scheduled 1964 Screening for malignant [facility] 00:00:00 neoplasm of colon Medical Ce nter (procedure) [code = 004133588] Future Scheduled 1964 Screening for malignant [facility] 00:00:00 neoplasm of colon Medical Ce nter (procedure) [code = 885495579] Future Scheduled 1964 Screening for malignant [facility] 00:00:00 neoplasm of colon Medical Ce nter (procedure) [code = 343432710] Future Scheduled 1964 Sigmoidoscopy [code = [facility] S[facility]oscopy] Medical Cente r Encounters Start End Encounter Admission Attending Care Care Encounter Source Date/Time Date/Time Type Type Clinicians Facility Department ID 2021-03-02 Inpatient ER [facility] Orthopedics [id number] 02:26:50 [facility] 2021-04-03 2021-04-03 Emergency X [facility] ERT [id number] Univers 21:25:00 23:39:00 MAJO espinoza of [facility] 2021-04-03 2021-04-03 Emergency [facility] [id number] Univers 21:25:00 23:39:00 Majo CLAY 350.1.13.10 ity [facility] 4.2.7.2.686 [facility] [id number] [facility] 084 Branch 2021-04-03 2021-04-03 Orders Doctor LASSITER [id number] Univers 00:00:00 00:00:00 Only Unassigned, BARBARA 350.1.13.10 ity of [facility] 4.2.7.2.686 [facility] [id number] [facility] 009 Branch 2020-01-02 2020-01-02 Emergency ER [facility] Emergency [id number] [facility] 06:16:00 06:16:00 2016-04-05 2016-04-06 Outpatient [facility] [id number] Memoria 14:00:00 05:59:00 ramirez Leiva [address] [place] [address] 2016-04-05 2016-04-06 Outpatient [facility] 4540 [id number] Memoria 14:00:00 05:59:00 ramirez Leiva [address] [place] [address] 2016-04-05 2016-04-05 Outpatient SAVI Pierce [facility] [id number] 08:00:00 23:59:00 Christofermarek Botello [facility] 2016-03-13 2016-03-14 Emergency [facility] [id number] Memoria 23:41:00 15:51:00 r Kai The [address] [place] [address] 2016-03-13 2016-03-14 Emergency [facility] [id number] Memoria 23:41:00 15:51:00 r Kai The [address] [place] [address] 2016-03-13 2016-03-14 Outpatient SAVI Diaz [facility] [id number] 18:41:00 10:51:00 Blanche Ruiz 2016-01-31 2016-02-18 Inpatient [facility] [id number] Memoria 18:47:00 20:15:00 r Kai The [address] [place] [address] 2016-01-31 2016-02-18 Inpatient [facility] [id number] Memoria 18:47:00 20:15:00 r Kai The [address] [place] [address] 2016-01-31 2016-02-18 Outpatient SAVI Pierce [facility] [id number] 13:47:00 15:15:00 Chuy Bradford [facility] 2015-02-15 2015-02-16 OBS [facility] [id number] Memoria 17:38:00 21:20:00 Observatio ramirez Quinn The 05 l n [facility] 2015-02-15 2015-02-16 OBS [facility] [id number] Memoria 17:38:00 21:20:00 Observatio ramirez Quinn The 05 l n [facility] 2015-02-15 2015-02-16 Outpatient SAVI Torres WOOD [id number] 12:38:00 16:20:00 Juan Mckeon 2015-02-09 2015-02-09 EC [facility] [id number] Memoria 20:20:00 21:13:00 Emergency r Kai The [address] [place] [address] 2015-02-09 2015-02-09 EC [facility] [id number] Memoria 20:20:00 21:13:00 Emergency [place] [facility] 04 l [facility] 2015-02-09 2015-02-09 Outpatient Az Warner [facility] [id number] 15:20:00 16:13:00 Sundar 04 2015-01-23 2015-01-23 EC nullFlavo [facility] [id number] Memoria 18:23:00 23:13:00 Emergency r [place] The 03 l [facility] 2015-01-23 2015-01-23 EC [facility]Flavo [facility] [id number] Memoria 18:23:00 23:13:00 Emergency r [place] The 03 l [facility] 2015-01-23 2015-01-23 Outpatient SAVI Fry [facility] [id number] 13:23:00 18:13:00 Tim Lassiter 03 2013-10-31 2013-11-30 OP [facility]Flavo [facility] [id number] Memoria 13:00:00 04:59:00 Recurring r Kai The 00 [facility] 2013-10-31 2013-11-30 OP nullFlavo [facility] [id number] Memoria 13:00:00 04:59:00 Recurring r Kai The [address] [place] [address] 2013-10-31 2013-11-29 Outpatient Rosibel, 2.16.840. [id number]. [id number] 08:00:00 23:59:00 Nabeel A [id number] 3.615.0.1 5.0.101 01 Results Test Description Test Time Test Comments Results Result Comments Source BASIC METABOLIC PANEL (NA, K, CL, CO2, GLUCOSE, BUN, 2021-03 05:02:30 CREATININE, CA) Test Item Value Reference Range Interpretation Comme nts NA (test code = 8350758715) 135 mmol/L 135-145 K (test code = 8816725010) 4.0 mmol/L 3.5-5.0 CL (test code = 3361412217) 104 mmol/L 98-108 CO2 TOTAL (test code = 0789926103) 19 mmol/L 23-31 L AGAP (test code = 5210173229) 2-16 BUN (test code = 7376923088) 11 mg/dL 7-23 GLUCOSE (test code = 2479741663) 104 mg/dL 70-110 CREATININE (test code = 0.91 mg/dL 0.60-1.25 7418838930) CALCIUM (test code = 4269999575) 8.8 mg/dL 8.6-10.6 eGFR (test code = 6147528456) mL/min/1.73m2 DELLA (test code = DELLA) Association [...] tests). Lab Interpretation (test code = Abnormal 56545-3) [facility] WITH [id number] 04:48:31 Test Item Value Reference Range Interpretation [...] RDW-SD (test code = 48.4 fL 38.5-51.6 24506-3) RDW-CV (test code = 13.6 % 12.1-15.4 788-0) PLT (test code = See_Comment [Automated 777-3) message] The sy stem which generated this result transmitted reference range : 150 - 328 10*3/ ?L. The reference r lance was not used to interpret this result as normal/abnormal . MPV (test code = 9.4 fL 9.8-13.0 L 38503-3) NRBC/100 WBC (test See_Comment [Automat ed code = 0829143316) message] The system which generated this result transmitted reference range : 0.0 - 10.0 /100 WBCs. The refer ence range was not u sed to interpret th is result as normal/abnormal . NRBC x10^3 (test code <0.01 See_Comment [Auto mated = 3784436595) message] The s ystem which generated this result transmitted reference range : 10*3/?L. The reference range was not used to interpret this result as normal/abnormal . GRAN MAT (NEUT) % 40.0 % (test code = 770-8) IMM GRAN % (test code 0.70 % = 1856693876) LYMPH % (test code = 42.0 % 736-9) MONO % (test code = 9.4 % 5905-5) EOS % (test code = 7.0 % 713-8) BASO % (test code = 0.9 % 706-2) GRAN MAT x10^3(ANC) 3.99 10*3/uL 1.99-6.95 (test code = 8439539944) IMM GRAN x10^3 (test 0.07 10*3/uL 0.00-0.06 H code = 0311357372) LYMPH x10^3 (test code 4.19 10*3/uL 1.09-3.23 H = 731-0) MONO x10^3 (test code 0.94 10*3/uL 0.36-1.02 = 742-7) EOS x10^3 (test code = 0.70 10*3/uL 0.06-0.53 H 711-2) BASO x10^3 (test code 0.09 10*3/uL 0.01-0.09 = 704-7) Lab Interpretation Abnormal (test code = 01713-8) [facility], [facility]PP[facility], WITHOUT CONTRAST, LEFT 2020-01-02 15:45:00FINAL [...] MDReport Verified Date/Time: 020 15:45:14 Reading Location: [facility] Radiology Reading Room Electronically signed by: DELISA BUSTILLO M.D.on 01/02/2020 03:45 PMSARS-COV2/RT-PCR ([facility]) 2020-01-02 13:11:00 Test Item Value Reference Range Interpretation Comments SARS-COV2/RT-PCR (test Negative Not Detected, Negative, code = 2621761) See external report for linked test SARS-COV-2 PERFORMING LAB [facility] (test code = 5002890) Negative result for this test determines that [...] of the Act.Fact Sheet for Healthcare Prov iders:https://www.KUBOO/sites/default/files/product/documents/Fact_Sheet_HC _Fogskzkgh_Fydt_KWNA-XrD-0.pdfFact Sheet for Healthcare Patients:https://www.KUBOO/sites/default/files/product/docume nts/Boye_Dciqp_Ctbbhlsl_Jtan_BIYT-YdE-6.pdfPerforming Laboratory:[facility].[place], [place] [address]HQN, SHOULDER, COMPLETE (MIN 2 VIEWS), [id number] 10:34:00Reason for exam:->ARM INJURYShould this be performed at the bedside?->YesFINAL REPORT RAD, SHOULDER, COMPLETE (MIN 2 VIEWS), LEFT INDICATION: ARM INJURYCOMPARISON: 2 hours prior TECHNIQUE: Single frontal view of the left shoulder. IMPRESSION: Redemonstration of chronic changes in the anteriorly displaced humeral head. Glenoid rim appears preserved. Acromioclavicular joint remains intact. Signed: JR Moreira Robert MDReport Verified Date/Time: 01/02/2020 10:34:05 Reading Location: [facility] Radiology Reading Room [id number] 09:03:00 Test Item Value Reference Range Interpretation [...] S NOT APPLICABLE FOR DIALYSIS PATIEN TS. Billing Adjudicator ID - EDASICBC W/PLT COUNT & AUTO [id number] 08:30:00 Test Item Value Reference Range Interpretation [...] 2801) RAD, SHOULDER, COMPLETE (MIN 2 VIEWS), [id number] 07:45:00Reason for exam:- >ARM INJURYFINAL REPORT RAD, [...] MDReport Verified Date/Time: 01/02/2020 07:45:57 Reading Location: [facility] Radiology Reading Room BLOOD [id number] 02:00:00 Test Item Value Reference Range Interpretation Comments CULTURE (BEAKER) (test No growth in 5 days code = 1095) BLOOD [id number] 20:01:00 Test Item Value Reference Range Interpretation Comments CULTURE (BEAKER) (test No growth in 5 days code = 1095) EEG AWAKE AND [id number] 14:49:00Reason for exam:->seizuresDate(s) of EE10/14/18DATE OF REPORT: 10/14/18ACC: [id number] Number: [id number] time: 13:36Stop time: 13:57ICD-10: R56.9 Unspecified ConvulsionsCPT Code: 79583 EEG: awake and drowsy <40 min HISTORY: [...] Indigo Zabala MDNeurophysiology Fellow Mario Castorenaurophysiology/Epilepsy Attending [facility] METABOLIC [id number] 07:41:00 Test Item Value Reference Range Interpretation [...] PATIEN TS. CBC W/PLT COUNT & AUTO [id number] 05:30:00 Test Item Value Reference Range Interpretation [...] (test code = 2801) VITAMIN B12 AND [id number] 19:46:00 Test Item Value Reference Range Interpretation Comments VITAMIN B12 (BEAKER) (test code = 683 pg/mL 213-816 774) FOLATE (BEAKER) (test code = 362) > ng/mL >=7.0 [id number] 17:59:00 Test Item Value Reference Range Interpretation Comments PHOSPHORUS (BEAKER) (test code = 4.0 mg/dL 2.3-4.7 604) [id number] 17:59:00 Test Item Value Reference Range Interpretation Comments MAGNESIUM (BEAKER) (test code = 2.5 mg/dL 1.6-2.6 627) CT, BRAIN, WITHOUT [id number] 16:58:00FINAL REPORT CT head without contrast. Reason [...] MDReport Verified Date/Time: 10/12/2018 16:58:56 Reading Location: [address] Neuro Reading Room URINALYSIS W/ [id number] 16:25:00 Test Item Value Reference Range Interpretation [...] 516) SOURCE(BEAKER) (test code = Urine, Voided 5437) BLOOD [id number] 10:00:00 Test Item Value Reference Range Interpretation Comments CULTURE (BEAKER) (test No growth in 5 days code = 1095) STOOL CULTURE + SHIGA [id number] 09:59:00 Test Item Value Reference Range Interpretation Comments CULTURE (BEAKER) No Salmonella, Shigella (test code = 1095) or Campylobacter isolated STOOL PATH [id number] 09:01:00 Test Item Value Reference Range Interpretation Comments PATHOGEN EXAM CHARGED (BEAKER) (test Done code = 4767) BASIC METABOLIC [id number] 06:59:00 Test Item Value Reference Range Interpretation [...] APPLICABLE FOR DIALYSIS PATIEN TS. SHIGA TOXIN [id number] 15:48:00 Test Item Value Reference Range Interpretation Comments SHIGA TOXIN 1 (BEAKER) (test Not detected Not detected code = 2177) SHIGA TOXIN 2 (BEAKER) (test Not detected Not detected code = 2179) CLOSTRIDIUM DIFFICILE TOXIN [id number] 15:13:00 Test Item Value Reference Range Interpretation [...] a positive result is not recommended.BLOOD GAS, [id number] 11:03:00 Test Item Value Reference Range Interpretation [...] code = 1819) 21.0 % BASIC METABOLIC [id number] 05:14:00 Test Item Value Reference Range Interpretation [...] NOT APPLICABLE FOR DIALYSIS PATIEN TS. PTH, [id number] 05:03:00 Test Item Value Reference Range Interpretation Comments PARATHYROID HORMONE INTACT 41.8 pg/mL 8.5-72.5 (BEAKER) (test code = 577) BASIC METABOLIC [id number] 07:10:00 Test Item Value Reference Range Interpretation [...] APPLICABLE FOR DIALYSIS PATIEN TS. SODIUM, RANDOM [id number] 06:58:00 Test Item Value Reference Range Interpretation Comments SODIUM URINE (BEAKER) (test code = 65 meq/L 243) Reference Range: No NormalsPROTHROMBIN [id number] 06:47:00 Test Item Value Reference Range Interpretation Comments PROTIME (BEAKER) (test code = 14.5 seconds 11.7-14.7 759) INR (BEAKER) (test code = 370) 1.1 <=5.9 RECOMMENDED COUMADIN/WARFARIN INR THERAPY RANGESSTANDARD DOSE: 2.0 - 3.0 Includes: PROPHYLAXIS for venous thrombosis, systemic embolization; TREATMENT for venous thrombosis and/or pulmonary embolus.HIGH RISK: Target INR is 2.5-3.5 for patients with mechanical heart valves.RAPID DRUG SCREEN, [id number] 15:43:00 Test Item Value Reference Range Interpretation [...] situations. Chain of custody not maintained. Some kjsg-cxb-ejgltto medications, as well as adulterants, may cause inaccurate results. Clinical correlation should be applied. Mildred comprehensive drug screen or confirmation of a detected drug may be performed upon request.URINE CULTURE 2017-04-18 14:33:00 Test Item Value Reference Range Interpretation Comments CULTURE (BEAKER) (test code = 1095) No growth BASIC METABOLIC [id number] 08:09:00 Test Item Value Reference Range Interpretation [...] PATIEN TS. CBC W/PLT COUNT & AUTO [id number] 06:38:00 Test Item Value Reference Range Interpretation [...] (BEAKER) (test code = 2801) U/S, RENAL, [id number] 22:34:00Reason for exam:->acute kidney injury FINAL REPORT [...] Liana Jackeport Verified Date/Time: 04/17/2017 22:34:25 Reading Location: [address] Consult Reading Room MR, BRAIN, WITHOUT [id number] 19:18:00Reason for exam:->Stroke evaluationFINAL REPORT MRI Brain [...] and for possible seizure foci. Signed: Wicho Nelsoneport Verified Date/Time: 04/17/2017 19:18:34 Reading Location: [facility] Radiology Reading Room EEG MONITORING WITH VIDEO RECORDING EACH 24 [id number] 18:01:00DATE OF TEST: 04/17/2017 DATE OF REPORT 04/17/2017 ACC: [id number] EE Start time: 16:42 Stoptime: 18:44 ICD-10: R56.9 CPT Code: 01457 HISTORY: 51 y/o woman with history of [...] = 1583) SOURCE(BEAKER) (test code = Urine, Allison 5734) EOSINOPHIL SMEAR, [id number] 11:56:00 Test Item Value Reference Range Interpretation Comments EOSINOPHIL SMEAR, URINE (BEAKER) No EOS seen No EOS seen (test code = 1851) CREATININE, RANDOM [id number] 11:24:00 Test Item Value Reference Range Interpretation Comments CREATININE URINE (BEAKER) (test 69.7 mg/dL code = 375) Reference Range: No NormalsSODIUM, RANDOM [id number] 11:24:00 Test Item Value Reference Range Interpretation Comments SODIUM URINE (BEAKER) (test code = 58 meq/L 243) Reference Range: No NormalsUREA NITROGEN, RANDOM [id number] 11:24:00 Test Item Value Reference Range Interpretation Comments UREA NITROGEN URINE (BEAKER) (test 172 mg/dL code = 538) Reference Range: No NormalsCREATINE KINASE (CK)2017-04-17 11:06:00 Test Item Value Reference Range Interpretation Comments CREATINE KINASE TOTAL (BEAKER) (test 136 U/L 29-200 code = 380) BASIC METABOLIC [id number] 04:53:00 Test Item Value Reference Range Interpretation [...] PATIEN TS. CBC W/PLT COUNT & AUTO [id number] 04:19:00 Test Item Value Reference Range Interpretation [...] EEG MONITORING WITH VIDEO RECORDING EACH 24 [id number] 17:57:00DATE OF TEST: 04/16/2017DATE OF REPORT 04/16/2017 ACC: [id number]: art time: 08:42 Stop time: 16:42ICD-10: R56.9CPT Code: 04662SBNGKFZ: 51 y/o woman with history of epilepsy [...] report.Vicky Hassan MDEpilepsy Attending EEG AWAKE/ASLEEP AND [id number] 13:27:00Reason for exam:->status epilepticusDATE OF TEST: 04/16/2017DATE OF REPORT 04/16/2017 ACC: [id number] EEStart time: 08:21 Stop time: 08:42ICD-10: R56.9CPT Code: 57410MIBOHEO: 51 y/o woman with history of epilepsy [...] this report.Vicky Hassan MDEpilepsy Attending HEPATIC FUNCTION [id number] 12:59:00 Test Item Value Reference Range Interpretation [...] 347) hemolyzed RAD, CHEST, 1 VIEW, NON [id number] 09:16:00Reason for exam:- >intubatedShould this be performed [...] Doe Verified Date/Time: 04/16/2017 09:16:32 Reading Location: [facility] Radiology Reading Room VITAMIN [id number] 07:31:00 Test Item Value Reference Range Interpretation Comments VITAMIN B12 (BEAKER) (test code = 450 pg/mL 519-089 228) FOLATE, [id number] 07:31:00 Test Item Value Reference Range Interpretation Comments FOLATE (BEAKER) (test code = 362) 8.0 ng/mL >=7.0 URINALYSIS W/ [id number] 07:09:00 Test Item Value Reference Range Interpretation [...] = 514) SOURCE(BEAKER) (test code = 2795) [id number] 05:59:00 Test Item Value Reference Range Interpretation Comments MAGNESIUM (BEAKER) 3.0 mg/dL 1.6-2.6 H Specimen moderately (test code = 627) hemolyzed [id number] 05:59:00 Test Item Value Reference Range Interpretation Comments PHOSPHORUS (BEAKER) 3.0 mg/dL 2.3-4.7 Specimen moderately (test code = 604) hemolyzed BASIC METABOLIC [id number] 05:59:00 Test Item Value Reference Range Interpretation [...] NOT APPLICABLE FOR DIALYSIS PATIEN TS. PROTHROMBIN [id number] 05:33:00 Test Item Value Reference Range Interpretation Comments PROTIME (BEAKER) (test code = 15.7 seconds 11.7-14.7 H 759) INR (BEAKER) (test code = 370) 1.3 <=5.9 RECOMMENDED COUMADIN/WARFARIN INR THERAPY RANGESSTANDARD DOSE: 2.0 - 3.0 Includes: PROPHYLAXIS for venous thrombosis, systemic embolization; TREATMENT for venous thrombosis and/or pulmonary embolus.HIGH RISK: Target INR is 2.5-3.5 for patients with mechanical heart valves.BLOOD GAS, [id number] 05:31:00 Test Item Value Reference Range Interpretation [...] 60.0 % CBC W/PLT COUNT & AUTO [id number] 05:08:00 Test Item Value Reference Range Interpretation [...] (BEAKER) (test code = 2801) BLOOD BANK [id number] 17:22:00 Test Item Value Reference Range Interpretation Comments RBC product (test code Product available = RBC product) (04/04/16 11:22 AM) [facility] [id number] 17:22:00 Test Item Value Reference Range Interpretation Comments RBC product (test code Product available = RBC product) (04/04/16 11:22 AM) [facility] [id number] 17:20:00 Test Item Value Reference Range Interpretation Comments ABO/Rh (test code = ABO/Rh) B POS [facility] [id number] 17:20:00 Test Item Value Reference Range Interpretation Comments Antibody Scrn (test Negative (04/04/16 code = Antibody Scrn) 11:20 AM) [facility] [id number] 17:20:00 Test Item Value Reference Range Interpretation Comments ABO/Rh (test code = ABO/Rh) B POS [facility] [id number] 17:20:00 Test Item Value Reference Range Interpretation Comments Antibody Scrn (test Negative (04/04/16 code = Antibody Scrn) 11:20 AM) [facility] AND [id number] 07:08:00 Test Item Value Reference Range Interpretation Comments UA Urobilinogen (test code = UA <=1.0 mg/dL 0.1-1.0 Urobilinogen) [facility] AND [id number] 07:08:00 Test Item Value Reference Range Interpretation Comments UA RBC (test code = 1 See_Comment [Automa roseann message] The UA RBC) system which ge nerated this result transmit roseann reference range : <=2. The reference range was not used to interpr et this result as reggie l/abnormal. [facility] AND [id number] 07:08:00 Test Item Value Reference Range Interpretation Comments UA WBC (test code = 3 See_Comment [Automa roseann message] The UA WBC) system which ge nerated this result transmit roseann reference range : <=5. The reference range was not used to interpr et this result as reggie l/abnormal. [facility] AND [id number] 07:08:00 Test Item Value Reference Range Interpretation Comments UA Sq Epi (test code = UA Sq Epi) Few /LPF [facility] [facility] [id number] 07:08:00 Test Item Value Reference Range Interpretation Comments UA Mucus (test code = UA Mucus) Few /LPF [facility] AND [id number] 07:08:00 Test Item Value Reference Range Interpretation Comments UA Leuk Est (test Negative (03/14/16 2:08 code = UA Leuk Est) AM) [facility] AND [id number] 07:08:00 Test Item Value Reference Range Interpretation Comments UA Protein (test code = UA Negative mg/dL Protein) [facility] AND [id number] 07:08:00 Test Item Value Reference Range Interpretation Comments UA pH (test code = UA pH) 5.0 5.0-8.0 [facility] AND [id number] 07:08:00 Test Item Value Reference Range Interpretation Comments UA Spec Grav (test code = UA Spec Grav) 1.009 [facility] AND [id number] 07:08:00 Test Item Value Reference Range Interpretation Comments UA Turbidity (test code = Clear (03/14/16 2:08 UA Turbidity) AM) [facility] AND [id number] 07:08:00 Test Item Value Reference Range Interpretation Comments UA Ketones (test code = UA Negative mg/dL Ketones) [facility] AND [id number] 07:08:00 Test Item Value Reference Range Interpretation Comments UA Glucose (test code = UA Negative mg/dL Glucose) [facility] AND [id number] 07:08:00 Test Item Value Reference Range Interpretation Comments UA Color (test code = Yellow *NA*(03/14/16 UA Color) 2:08 AM) [facility] AND [id number] 07:08:00 Test Item Value Reference Range Interpretation Comments UA Nitrite (test code Negative (03/14/16 2:08 = UA Nitrite) AM) [facility] AND [id number] 07:08:00 Test Item Value Reference Range Interpretation Comments UA Blood (test code = Negative (03/14/16 2:08 UA Blood) AM) [facility] AND [id number] 07:08:00 Test Item Value Reference Range Interpretation Comments UA Bili (test code = Negative *NA*(03/14/16 UA Bili) 2:08 AM) [facility] AND [id number] 07:08:00 Test Item Value Reference Range Interpretation Comments UA Urobilinogen (test code = UA <=1.0 mg/dL 0.1-1.0 Urobilinogen) [facility] AND [id number] 07:08:00 Test Item Value Reference Range Interpretation Comments UA RBC (test code = 1 See_Comment [Automa roseann message] The UA RBC) system which ge nerated this result transmit roseann reference range : <=2. The reference range was not used to interpr et this result as reggie l/abnormal. [facility] AND [id number] 07:08:00 Test Item Value Reference Range Interpretation Comments UA WBC (test code = 3 See_Comment [Automa roseann message] The UA WBC) system which ge nerated this result transmit roseann reference range : <=5. The reference range was not used to interpr et this result as reggie l/abnormal. [facility] AND [id number] 07:08:00 Test Item Value Reference Range Interpretation Comments UA Sq Epi (test code = UA Sq Epi) Few /LPF [facility] AND [id number] 07:08:00 Test Item Value Reference Range Interpretation Comments UA Mucus (test code = UA Mucus) Few /LPF [facility] AND [id number] 07:08:00 Test Item Value Reference Range Interpretation Comments UA Leuk Est (test Negative (03/14/16 2:08 code = UA Leuk Est) AM) [facility] AND [id number] 07:08:00 Test Item Value Reference Range Interpretation Comments UA Protein (test code = UA Negative mg/dL Protein) [facility] AND [id number] 07:08:00 Test Item Value Reference Range Interpretation Comments UA pH (test code = UA pH) 5.0 5.0-8.0 [facility] AND [id number] 07:08:00 Test Item Value Reference Range Interpretation Comments UA Spec Grav (test code = UA Spec Grav) 1.009 [facility] AND [id number] 07:08:00 Test Item Value Reference Range Interpretation Comments UA Turbidity (test code = Clear (03/14/16 2:08 UA Turbidity) AM) [facility] AND [id number] 07:08:00 Test Item Value Reference Range Interpretation Comments UA Ketones (test code = UA Negative mg/dL Ketones) [facility] AND [id number] 07:08:00 Test Item Value Reference Range Interpretation Comments UA Glucose (test code = UA Negative mg/dL Glucose) [facility] AND [id number] 07:08:00 Test Item Value Reference Range Interpretation Comments UA Color (test code = Yellow *NA*(03/14/16 UA Color) 2:08 AM) [facility] AND [id number] 07:08:00 Test Item Value Reference Range Interpretation Comments UA Nitrite (test code Negative (03/14/16 2:08 = UA Nitrite) AM) [facility] AND [id number] 07:08:00 Test Item Value Reference Range Interpretation Comments UA Blood (test code = Negative (03/14/16 2:08 UA Blood) AM) [facility] AND [id number] 07:08:00 Test Item Value Reference Range Interpretation Comments UA Bili (test code = Negative *NA*(03/14/16 UA Bili) 2:08 AM) [facility] [id number] 05:40:00 Test Item Value Reference Range Interpretation Comments Lactic Acid Lvl (test code = Lactic 0.8 0.5-2.2 Acid Lvl) [facility] [id number] 05:40:00 Test Item Value Reference Range Interpretation Comments Lactic Acid Lvl (test code = Lactic 0.8 0.5-2.2 Acid Lvl) [facility] [id number] 05:20:00 Test Item Value Reference Range Interpretation Comments Procalcitonin Lvl <0.05 ng/mL See_Comment [Automate d message] (test code = The system whic h Procalcitonin Lvl) generated this result transmit roseann reference range : <=0.10. The reference range was not used to interpret this result as normal/abnormal . [facility] [id number] 05:20:00 Test Item Value Reference Range Interpretation Comments Procalcitonin Lvl <0.05 ng/mL See_Comment [Automate d message] (test code = The system whic h Procalcitonin Lvl) generated this result transmit roseann reference range : <=0.10. The reference range was not used to interpret this result as normal/abnormal . [facility] [id number] 02:07:00 Test Item Value Reference Range Interpretation Comments Antibody Scrn (test Negative (03/13/16 code = Antibody Scrn) 9:07 PM) [facility] [id number] 02:07:00 Test Item Value Reference Range Interpretation Comments ABO/Rh (test code = ABO/Rh) B POS [facility] [id number] 02:07:00 Test Item Value Reference Range Interpretation Comments eGFR (test code = eGFR) 43 [facility] [id number] 02:07:00 Test Item Value Reference Range Interpretation Comments BUN (test code = BUN) 21 7-22 [facility] [id number] 02:07:00 Test Item Value Reference Range Interpretation Comments Creatinine Lvl (test code = Creatinine 1.79 0.50-1.40 Lvl) [facility] [id number] 02:07:00 Test Item Value Reference Range Interpretation Comments Alk Phos (test code = Alk Phos) 95 39-136 [facility] [id number] 02:07:00 Test Item Value Reference Range Interpretation Comments Bili Total (test code = Bili Total) 0.3 0.2-1.3 [facility] [id number] 02:07:00 Test Item Value Reference Range Interpretation Comments AST (test code = AST) 39 See_Comment [Auto mated message] The system which ge nerated this result transmit roseann reference range : <=37. The reference range was not used to interpr et this result as reggie l/abnormal. [facility] [id number] 02:07:00 Test Item Value Reference Range Interpretation Comments ALT (test code = ALT) 59 See_Comment [Auto mated message] The system which ge nerated this result transmit roseann reference range : <=65. The reference range was not used to interpr et this result as reggie l/abnormal. [facility]2016-10-18 02:07:00 Test Item Value Reference Range Interpretation Comments Sodium Lvl (test code = Sodium Lvl) 139 135-145 [facility]2016-10-18 02:07:00 Test Item Value Reference Range Interpretation Comments Total Protein (test code = Total 7.8 6.4-8.4 Protein) [facility]2016-10-18 02:07:00 Test Item Value Reference Range Interpretation Comments Albumin Lvl (test code = Albumin Lvl) 2.5 3.5-5.0 [facility]2016-10-18 02:07:00 Test Item Value Reference Range Interpretation Comments Glucose Lvl (test code = Glucose Lvl) 120 70-99 [facility]2016-10-18 02:07:00 Test Item Value Reference Range Interpretation Comments Chloride Lvl (test code = Chloride Lvl) 106 95-109 [facility]2016-10-18 02:07:00 Test Item Value Reference Range Interpretation Comments CO2 (test code = CO2) 21 24-32 [facility]2016-10-18 02:07:00 Test Item Value Reference Range Interpretation Comments Calcium Lvl (test code = Calcium Lvl) 10.1 8.5-10.5 [facility]2016-10-18 02:07:00 Test Item Value Reference Range Interpretation Comments Potassium Lvl (test code = Potassium 3.3 3.5-5.1 Lvl) [facility]2016-10-18 02:07:00 Test Item Value Reference Range Interpretation Comments A/G Ratio (test code = A/G Ratio) 0.5 0.7-1.6 [facility]2016-10-18 02:07:00 Test Item Value Reference Range Interpretation Comments Globulin (test code = Globulin) 5.3 2.7-4.2 [facility]2016-10-18 02:07:00 Test Item Value Reference Range Interpretation Comments B/C Ratio (test code = B/C Ratio) 12 6-25 [facility]2016-10-18 02:07:00 Test Item Value Reference Range Interpretation Comments AGAP (test code = AGAP) 15.3 10.0-20.0 [id number] 02:07:00 Test Item Value Reference Range Interpretation Comments MPV (test code = MPV) 7.4 7.4-10.4 [facility] N[id number] 02:07:00 Test Item Value Reference Range Interpretation Comments WBC (test code = WBC) 7.3 3.7-10.4 [facility] No[id number] 02:07:00 Test Item Value Reference Range Interpretation Comments MCV (test code = MCV) 88.5 80.0-94.0 [facility] Nor[id number] 02:07:00 Test Item Value Reference Range Interpretation Comments RBC (test code = RBC) 3.00 4.70-6.10 [facility] Nort[id number] 02:07:00 Test Item Value Reference Range Interpretation Comments Hct (test code = Hct) 26.5 42.0-54.0 [facility] Nort[id number] 02:07:00 Test Item Value Reference Range Interpretation Comments Hgb (test code = Hgb) 8.8 14.0-18.0 [facility] No[id number] 02:07:00 Test Item Value Reference Range Interpretation Comments MCHC (test code = MCHC) 33.1 32.0-36.0 [facility] NorthwestZdlenquLDXZKWQOFK3351-04-77 02:07:00 Test Item Value Reference Range Interpretation Comments MCH (test code = MCH) 29.3 pg 27.0-31.0 [facility] No[id number] 02:07:00 Test Item Value Reference Range Interpretation Comments Platelet (test code = Platelet) 241 133-450 [facility] NorthwestIdpudxnUZMWYUOBNM3433-79-08 02:07:00 Test Item Value Reference Range Interpretation Comments RDW (test code = RDW) 15.5 11.5-14.5 [facility] NorthwestLbijzkwRJNKFCBYET7094-90-00 02:07:00 Test Item Value Reference Range Interpretation Comments Basophils # (test code 0.1 See_Comment [Aut omated message] The = Basophils #) system which generated this result tra nsmitted reference range : <=0.2. The reference r lance was not used to int erpret this result as normal/abnormal . [facility] Nor[id number] 02:07:00 Test Item Value Reference Range Interpretation Comments Lymphocytes (test code = Lymphocytes) 14.3 20.0-40.0 [facility] Nort[id number] 02:07:00 Test Item Value Reference Range Interpretation Comments Eosinophils (test code = 1.9 See_Comment [A utomated message] The Eosinophils) system which ge nerated this result tra nsmitted reference range : <=4.0. The reference r lance was not used to int erpret this result as normal/abnormal . [facility] Nort[id number] 02:07:00 Test Item Value Reference Range Interpretation Comments Segs (test code = Segs) 77.1 45.0-75.0 [facility] NorthwestXmlzqlzPHEHXUEXLM3074-41-93 02:07:00 Test Item Value Reference Range Interpretation Comments Monocytes (test code = Monocytes) 5.3 2.0-12.0 [facility] NorthwestWmnuumiFVGYEJQSLN8559-94-78 02:07:00 Test Item Value Reference Range Interpretation Comments Basophils (test code = 1.4 See_Comment [Aut omated message] The Basophils) system which ge nerated this result tra nsmitted reference range : <=1.0. The reference r lance was not used to int erpret this result as normal/abnormal . [facility] NorthwestSlyiavrZPBPKXZIQE0775-63-18 02:07:00 Test Item Value Reference Range Interpretation Comments Segs-Bands # (test code = Segs-Bands #) 5.6 1.5-8.1 [facility] NorthwestJdcizedMCMHLHQMJW3295-58-68 02:07:00 Test Item Value Reference Range Interpretation Comments Lymphocytes # (test code = Lymphocytes 1.0 1.0-5.5 #) [facility] Nor[id number] 02:07:00 Test Item Value Reference Range Interpretation Comments Monocytes # (test code 0.4 See_Comment [Aut omated message] The = Monocytes #) system which generated this result tra nsmitted reference range : <=0.8. The reference r lance was not used to int erpret this result as normal/abnormal . [facility] Nort[id number] 02:07:00 Test Item Value Reference Range Interpretation Comments Eosinophils # (test code 0.1 See_Comment [A utomated message] The = Eosinophils #) system whic h generated this result tra nsmitted reference range : <=0.5. The reference r lance was not used to int erpret this result as normal/abnormal . [facility] [employer] [id number] 02:07:00 Test Item Value Reference Range Interpretation Comments Antibody Scrn (test Negative (03/13/16 code = Antibody Scrn) 9:07 PM) [facility] [employer] [id number] 02:07:00 Test Item Value Reference Range Interpretation Comments ABO/Rh (test code = ABO/Rh) B POS [facility] [id number] 02:07:00 Test Item Value Reference Range Interpretation Comments eGFR (test code = eGFR) 43 [facility] [id number] 02:07:00 Test Item Value Reference Range Interpretation Comments BUN (test code = BUN) 21 7-22 [facility] [id number] 02:07:00 Test Item Value Reference Range Interpretation Comments Creatinine Lvl (test code = Creatinine 1.79 0.50-1.40 Lvl) [facility] [id number] 02:07:00 Test Item Value Reference Range Interpretation Comments Alk Phos (test code = Alk Phos) 95 39-136 [facility] [id number] 02:07:00 Test Item Value Reference Range Interpretation Comments Bili Total (test code = Bili Total) 0.3 0.2-1.3 [facility] [id number] 02:07:00 Test Item Value Reference Range Interpretation Comments AST (test code = AST) 39 See_Comment [Auto mated message] The system which ge nerated this result transmit roseann reference range : <=37. The reference range was not used to interpr et this result as reggie l/abnormal. [facility] [id number] 02:07:00 Test Item Value Reference Range Interpretation Comments ALT (test code = ALT) 59 See_Comment [Auto mated message] The system which ge nerated this result transmit roseann reference range : <=65. The reference range was not used to interpr et this result as reggie l/abnormal. [facility] [id number] 02:07:00 Test Item Value Reference Range Interpretation Comments Sodium Lvl (test code = Sodium Lvl) 139 135-145 [facility] [id number] 02:07:00 Test Item Value Reference Range Interpretation Comments Total Protein (test code = Total 7.8 6.4-8.4 Protein) [facility]2016-10-18 02:07:00 Test Item Value Reference Range Interpretation Comments Albumin Lvl (test code = Albumin Lvl) 2.5 3.5-5.0 [facility]2016-10-18 02:07:00 Test Item Value Reference Range Interpretation Comments Glucose Lvl (test code = Glucose Lvl) 120 70-99 [facility]2016-10-18 02:07:00 Test Item Value Reference Range Interpretation Comments Chloride Lvl (test code = Chloride Lvl) 106 95-109 [facility]2016-10-18 02:07:00 Test Item Value Reference Range Interpretation Comments CO2 (test code = CO2) 21 24-32 [facility]2016-10-18 02:07:00 Test Item Value Reference Range Interpretation Comments Calcium Lvl (test code = Calcium Lvl) 10.1 8.5-10.5 [facility]2016-10-18 02:07:00 Test Item Value Reference Range Interpretation Comments Potassium Lvl (test code = Potassium 3.3 3.5-5.1 Lvl) [facility]2016-10-18 02:07:00 Test Item Value Reference Range Interpretation Comments A/G Ratio (test code = A/G Ratio) 0.5 0.7-1.6 [facility]2016-10-18 02:07:00 Test Item Value Reference Range Interpretation Comments Globulin (test code = Globulin) 5.3 2.7-4.2 [facility]2016-10-18 02:07:00 Test Item Value Reference Range Interpretation Comments B/C Ratio (test code = B/C Ratio) 12 6-25 [facility]2016-10-18 02:07:00 Test Item Value Reference Range Interpretation Comments AGAP (test code = AGAP) 15.3 10.0-20.0 [facility] NorthwestTogdnupILURYTVDEK9304-08-62 02:07:00 Test Item Value Reference Range Interpretation Comments MPV (test code = MPV) 7.4 7.4-10.4 [facility] NorthwestYakowrvWQRWECYLVE6378-67-14 02:07:00 Test Item Value Reference Range Interpretation Comments WBC (test code = WBC) 7.3 3.7-10.4 [facility] NorthwestOmiykvtPSFESMBWNT0645-21-92 02:07:00 Test Item Value Reference Range Interpretation Comments MCV (test code = MCV) 88.5 80.0-94.0 [facility] NorthwestLvfxyirPDBVVROFTZ2932-35-29 02:07:00 Test Item Value Reference Range Interpretation Comments RBC (test code = RBC) 3.00 4.70-6.10 [facility] NorthwestMfkrelrRNKKBRYMNW5730-70-96 02:07:00 Test Item Value Reference Range Interpretation Comments Hct (test code = Hct) 26.5 42.0-54.0 [facility] NorthwestRdnulkoKLMGCVJWKJ5606-98-58 02:07:00 Test Item Value Reference Range Interpretation Comments Hgb (test code = Hgb) 8.8 14.0-18.0 [facility] NorthwestJnkdzkkVHTVCZNCGG2470-57-22 02:07:00 Test Item Value Reference Range Interpretation Comments MCHC (test code = MCHC) 33.1 32.0-36.0 [facility] NorthwestPisuohyMBRGSQPGEC9170-42-15 02:07:00 Test Item Value Reference Range Interpretation Comments MCH (test code = MCH) 29.3 pg 27.0-31.0 [facility] NorthwestQvcwxarWBIOPYPDIA8897-70-20 02:07:00 Test Item Value Reference Range Interpretation Comments Platelet (test code = Platelet) 241 133-450 [facility] NorthwestDplsbisLVDRZELLBT7651-47-91 02:07:00 Test Item Value Reference Range Interpretation Comments RDW (test code = RDW) 15.5 11.5-14.5 [facility] NorthwestZiszyxbMMNDDIACJC0745-34-55 02:07:00 Test Item Value Reference Range Interpretation Comments Basophils # (test code 0.1 See_Comment [Aut omated message] The = Basophils #) system which generated this result tra nsmitted reference range : <=0.2. The reference r lance was not used to int erpret this result as normal/abnormal . [facility] NorthwestErboovrJXSIEEHYXU0091-08-27 02:07:00 Test Item Value Reference Range Interpretation Comments Lymphocytes (test code = Lymphocytes) 14.3 20.0-40.0 [facility] NorthwestNddvytyLTQXGBORHX5344-36-35 02:07:00 Test Item Value Reference Range Interpretation Comments Eosinophils (test code = 1.9 See_Comment [A utomated message] The Eosinophils) system which ge nerated this result tra nsmitted reference range : <=4.0. The reference r lance was not used to int erpret this result as normal/abnormal . [facility] NorthwestMzwhgvsIBMNTDHALR4668-54-47 02:07:00 Test Item Value Reference Range Interpretation Comments Segs (test code = Segs) 77.1 45.0-75.0 [facility] NorthwestAsapimbBOADDPZWRL6707-32-14 02:07:00 Test Item Value Reference Range Interpretation Comments Monocytes (test code = Monocytes) 5.3 2.0-12.0 [facility] NorthwestFzkdfadYFZVMOMOGZ8266-80-98 02:07:00 Test Item Value Reference Range Interpretation Comments Basophils (test code = 1.4 See_Comment [Aut omated message] The Basophils) system which ge nerated this result tra nsmitted reference range : <=1.0. The reference r alnce was not used to int erpret this result as normal/abnormal . [facility] NorthwestJvdrdonOTOWTZVHZQ5718-47-94 02:07:00 Test Item Value Reference Range Interpretation Comments Segs-Bands # (test code = Segs-Bands #) 5.6 1.5-8.1 [facility] NorthwestNhjtkceHFSJQYJKLR7611-99-63 02:07:00 Test Item Value Reference Range Interpretation Comments Lymphocytes # (test code = Lymphocytes 1.0 1.0-5.5 #) [facility] NorthwestMtclhtfUVERPBNIRR6949-46-70 02:07:00 Test Item Value Reference Range Interpretation Comments Monocytes # (test code 0.4 See_Comment [Aut omated message] The = Monocytes #) system which generated this result tra nsmitted reference range : <=0.8. The reference r lance was not used to int erpret this result as normal/abnormal . [facility] NorthwestMyaqbeyIOZXMOPHXE3544-58-27 02:07:00 Test Item Value Reference Range Interpretation Comments Eosinophils # (test code 0.1 See_Comment [A utomated message] The = Eosinophils #) system whic h generated this result tra nsmitted reference range : <=0.5. The reference r lance was not used to int erpret this result as normal/abnormal . [facility]2016-09-21 09:04:00 Test Item Value Reference Range Interpretation Comments UIBC (test code = UIBC) 174 110-370 [facility]2016-09-21 09:04:00 Test Item Value Reference Range Interpretation Comments TIBC (test code = TIBC) 196 228-428 [facility]2016-09-21 09:04:00 Test Item Value Reference Range Interpretation Comments Iron (test code = Iron) 22 45-160 [facility]2016-09-21 09:04:00 Test Item Value Reference Range Interpretation Comments % Satur Fe (test code = % Satur Fe) 11 12-57 [facility]2016-09-21 09:04:00 Test Item Value Reference Range Interpretation Comments UIBC (test code = UIBC) 174 110-370 [facility]2016-09-21 09:04:00 Test Item Value Reference Range Interpretation Comments TIBC (test code = TIBC) 196 228-428 [facility]2016-09-21 09:04:00 Test Item Value Reference Range Interpretation Comments Iron (test code = Iron) 22 45-160 [facility]2016-09-21 09:04:00 Test Item Value Reference Range Interpretation Comments % Satur Fe (test code = % Satur Fe) 11 12-57 [facility]2016-09-20 15:50:00 Test Item Value Reference Range Interpretation Comments eGFR (test code = eGFR) 57 [facility]2016-09-20 15:50:00 Test Item Value Reference Range Interpretation Comments AGAP (test code = AGAP) 14.7 10.0-20.0 [facility]2016-09-20 15:50:00 Test Item Value Reference Range Interpretation Comments Calcium Lvl (test code = Calcium Lvl) 8.7 8.5-10.5 [facility]2016-09-20 15:50:00 Test Item Value Reference Range Interpretation Comments CO2 (test code = CO2) 24 24-32 [facility]2016-09-20 15:50:00 Test Item Value Reference Range Interpretation Comments Chloride Lvl (test code = Chloride Lvl) 99 95-109 [facility]2016-09-20 15:50:00 Test Item Value Reference Range Interpretation Comments Potassium Lvl (test code = Potassium 3.7 3.5-5.1 Lvl) [facility]2016-09-20 15:50:00 Test Item Value Reference Range Interpretation Comments BUN (test code = BUN) 16 7- [facility]2016-09-20 15:50:00 Test Item Value Reference Range Interpretation Comments Glucose Lvl (test code = Glucose Lvl) 128 70-99 [facility]2016-09-20 15:50:00 Test Item Value Reference Range Interpretation Comments Sodium Lvl (test code = Sodium Lvl) 134 135-145 [facility]2016-09-20 15:50:00 Test Item Value Reference Range Interpretation Comments Creatinine Lvl (test code = Creatinine 1.42 0.50-1.40 Lvl) [facility]2016-09-20 15:50:00 Test Item Value Reference Range Interpretation Comments eGFR (test code = eGFR) 57 [facility]2016-09-20 15:50:00 Test Item Value Reference Range Interpretation Comments AGAP (test code = AGAP) 14.7 10.0-20.0 [facility]2016-09-20 15:50:00 Test Item Value Reference Range Interpretation Comments Calcium Lvl (test code = Calcium Lvl) 8.7 8.5-10.5 [facility]2016-09-20 15:50:00 Test Item Value Reference Range Interpretation Comments CO2 (test code = CO2) 24 24-32 [facility]2016-09-20 15:50:00 Test Item Value Reference Range Interpretation Comments Chloride Lvl (test code = Chloride Lvl) 99 95-109 [facility]2016-09-20 15:50:00 Test Item Value Reference Range Interpretation Comments Potassium Lvl (test code = Potassium 3.7 3.5-5.1 Lvl) [facility]2016-09-20 15:50:00 Test Item Value Reference Range Interpretation Comments BUN (test code = BUN) 16 - [facility]2016-09-20 15:50:00 Test Item Value Reference Range Interpretation Comments Glucose Lvl (test code = Glucose Lvl) 128 70-99 [facility]2016-09-20 15:50:00 Test Item Value Reference Range Interpretation Comments Sodium Lvl (test code = Sodium Lvl) 134 135-145 [facility]2016-09-20 15:50:00 Test Item Value Reference Range Interpretation Comments Creatinine Lvl (test code = Creatinine 1.42 0.50-1.40 Lvl) [facility]2016-09-19 09:45:00 Test Item Value Reference Range Interpretation Comments eGFR (test code = eGFR) 51 [place] 267116-09-19 09:45:00 Test Item Value Reference Range Interpretation Comments Bili Total (test code = Bili Total) 0.8 0.2-1.3 [place] 267116-09-19 09:45:00 Test Item Value Reference Range Interpretation Comments ALT (test code = ALT) 25 See_Comment [Auto mated message] The system which ge nerated this result transmit roseann reference range : <=65. The reference range was not used to interpr et this result as reggie l/abnormal. [place] 267116-09-19 09:45:00 Test Item Value Reference Range Interpretation Comments AST (test code = AST) 15 See_Comment [Auto mated message] The system which ge nerated this result transmit roseann reference range : <=37. The reference range was not used to interpr et this result as reggie l/abnormal. [facility]2016-09-19 09:45:00 Test Item Value Reference Range Interpretation Comments Alk Phos (test code = Alk Phos) 62 39-136 [facility]2016-09-19 09:45:00 Test Item Value Reference Range Interpretation Comments Globulin (test code = Globulin) 4.8 2.7-4.2 [place] 267116-09-19 09:45:00 Test Item Value Reference Range Interpretation Comments A/G Ratio (test code = A/G Ratio) 0.5 0.7-1.6 [place] 267116-09-19 09:45:00 Test Item Value Reference Range Interpretation Comments Calcium Lvl (test code = Calcium Lvl) 9.0 8.5-10.5 [facility]2016-09-19 09:45:00 Test Item Value Reference Range Interpretation Comments Glucose Lvl (test code = Glucose Lvl) 109 70-99 [place] 267116-09-19 09:45:00 Test Item Value Reference Range Interpretation Comments CO2 (test code = CO2) 24 24-32 [facility]2016-09-19 09:45:00 Test Item Value Reference Range Interpretation Comments Chloride Lvl (test code = Chloride Lvl) 101 95-109 [facility]2016-09-19 09:45:00 Test Item Value Reference Range Interpretation Comments BUN (test code = BUN) 17 7-22 [facility]2016-09-19 09:45:00 Test Item Value Reference Range Interpretation Comments Potassium Lvl (test code = Potassium 4.1 3.5-5.1 Lvl) [facility]2016-09-19 09:45:00 Test Item Value Reference Range Interpretation Comments AGAP (test code = AGAP) 14.1 10.0-20.0 [facility]2016-09-19 09:45:00 Test Item Value Reference Range Interpretation Comments Albumin Lvl (test code = Albumin Lvl) 2.3 3.5-5.0 [facility]2016-09-19 09:45:00 Test Item Value Reference Range Interpretation Comments Total Protein (test code = Total 7.1 6.4-8.4 Protein) [facility]2016-09-19 09:45:00 Test Item Value Reference Range Interpretation Comments Creatinine Lvl (test code = Creatinine 1.55 0.50-1.40 Lvl) [facility]2016-09-19 09:45:00 Test Item Value Reference Range Interpretation Comments Sodium Lvl (test code = Sodium Lvl) 135 135-145 [facility]2016-09-19 09:45:00 Test Item Value Reference Range Interpretation Comments B/C Ratio (test code = B/C Ratio) 11 6-25 [place] 868756-09-19 09:45:00 Test Item Value Reference Range Interpretation Comments MPV (test code = MPV) 7.7 7.4-10.4 [facility]YicygmgVPPXCVMOLY9131-34-56 09:45:00 Test Item Value Reference Range Interpretation Comments Hct (test code = Hct) 25.4 42.0-54.0 [facility] NorthwestDtfgzbeFSAGPBGTSJ6270-25-20 09:45:00 Test Item Value Reference Range Interpretation Comments MCH (test code = MCH) 32.7 pg 27.0-31.0 [place] 868756-09-19 09:45:00 Test Item Value Reference Range Interpretation Comments MCV (test code = MCV) 96.6 80.0-94.0 [facility] NorthwestQiusmhmZNJPQNITDS2300-45-47 09:45:00 Test Item Value Reference Range Interpretation Comments Platelet (test code = Platelet) 296 133-450 [facility] NorthwestZceekngPRSCWYOSEY8660-16-94 09:45:00 Test Item Value Reference Range Interpretation Comments RDW (test code = RDW) 14.7 11.5-14.5 [facility] NorthwestOvpdtltJGKBEFIARF0067-99-15 09:45:00 Test Item Value Reference Range Interpretation Comments MCHC (test code = MCHC) 33.8 32.0-36.0 [facility] NorthwestJgfmewsYJAWMKAMZP9366-56-41 09:45:00 Test Item Value Reference Range Interpretation Comments WBC (test code = WBC) 8.4 3.7-10.4 [facility] NorthwestBvspssaXMFJHNTPLP7134-08-50 09:45:00 Test Item Value Reference Range Interpretation Comments Hgb (test code = Hgb) 8.6 14.0-18.0 [facility] NorthwestYyibbyaYPSHSKZPVN1405-58-70 09:45:00 Test Item Value Reference Range Interpretation Comments RBC (test code = RBC) 2.63 4.70-6.10 [facility] NorthwestBfzjszuIGROXQJUTM1050-65-03 09:45:00 Test Item Value Reference Range Interpretation Comments Lymphocytes # (test code = Lymphocytes 1.5 1.0-5.5 #) [facility] NorthwestVsbhlinAAQUVNXUJE8516-68-03 09:45:00 Test Item Value Reference Range Interpretation Comments Eosinophils # (test code 0.2 See_Comment [A utomated message] The = Eosinophils #) system whic h generated this result tra nsmitted reference range : <=0.5. The reference r lance was not used to int erpret this result as normal/abnormal . [facility] NorthwestSifwhpgYYEYOSHGDZ1000-96-32 09:45:00 Test Item Value Reference Range Interpretation Comments Monocytes # (test code 0.8 See_Comment [Aut omated message] The = Monocytes #) system which generated this result tra nsmitted reference range : <=0.8. The reference r lance was not used to int erpret this result as normal/abnormal . [facility] NorthwestFgsplnwMTJXPAQAKO8441-50-75 09:45:00 Test Item Value Reference Range Interpretation Comments Basophils # (test code 0.1 See_Comment [Aut omated message] The = Basophils #) system which generated this result tra nsmitted reference range : <=0.2. The reference r lance was not used to int erpret this result as normal/abnormal . [facility] NorthwestOgsucsbMDGOGKEIJQ5948-38-71 09:45:00 Test Item Value Reference Range Interpretation Comments Monocytes (test code = Monocytes) 9.9 2.0-12.0 [facility] NorthwestAmkxqdoUXLAXMUKBT1601-05-11 09:45:00 Test Item Value Reference Range Interpretation Comments Lymphocytes (test code = Lymphocytes) 17.2 20.0-40.0 [facility] NorthwestIkhansaGDJYLJXVFM3735-77-78 09:45:00 Test Item Value Reference Range Interpretation Comments Segs (test code = Segs) 69.8 45.0-75.0 [facility] NorthwestXhvlgxkVSJBRVSNFL0422-56-28 09:45:00 Test Item Value Reference Range Interpretation Comments Eosinophils (test code = 2.2 See_Comment [A utomated message] The Eosinophils) system which ge nerated this result tra nsmitted reference range : <=4.0. The reference r lance was not used to int erpret this result as normal/abnormal . [facility] NorthwestAgdftjrSTDBTXRVEO4676-72-84 09:45:00 Test Item Value Reference Range Interpretation Comments Segs-Bands # (test code = Segs-Bands #) 5.9 1.5-8.1 [facility] NorthwestAfttrpeQVKSYCZLUS9981-97-56 09:45:00 Test Item Value Reference Range Interpretation Comments Basophils (test code = 0.9 See_Comment [Aut omated message] The Basophils) system which ge nerated this result tra nsmitted reference range : <=1.0. The reference r lance was not used to int erpret this result as normal/abnormal . [facility] 09:45:00 Test Item Value Reference Range Interpretation Comments Vanco Tr (test code = Vanco Tr) 14.8 [place] [id number] 09:45:00 Test Item Value Reference Range Interpretation Comments Vanco Tr TND (test code = Vanco Tr TND) TBD [facility]2016-09-19 09:45:00 Test Item Value Reference Range Interpretation Comments eGFR (test code = eGFR) 51 [facility]2016-09-19 09:45:00 Test Item Value Reference Range Interpretation Comments Bili Total (test code = Bili Total) 0.8 0.2-1.3 [facility]2016-09-19 09:45:00 Test Item Value Reference Range Interpretation Comments ALT (test code = ALT) 25 See_Comment [Auto mated message] The system which ge nerated this result transmit roseann reference range : <=65. The reference range was not used to interpr et this result as reggie l/abnormal. [place] 267116-09-19 09:45:00 Test Item Value Reference Range Interpretation Comments AST (test code = AST) 15 See_Comment [Auto mated message] The system which ge nerated this result transmit roseann reference range : <=37. The reference range was not used to interpr et this result as reggie l/abnormal. [place] 267116-09-19 09:45:00 Test Item Value Reference Range Interpretation Comments Alk Phos (test code = Alk Phos) 62 39-136 [facility]2016-09-19 09:45:00 Test Item Value Reference Range Interpretation Comments Globulin (test code = Globulin) 4.8 2.7-4.2 [facility]2016-09-19 09:45:00 Test Item Value Reference Range Interpretation Comments A/G Ratio (test code = A/G Ratio) 0.5 0.7-1.6 [place] 267116-09-19 09:45:00 Test Item Value Reference Range Interpretation Comments Calcium Lvl (test code = Calcium Lvl) 9.0 8.5-10.5 [place] 267116-09-19 09:45:00 Test Item Value Reference Range Interpretation Comments Glucose Lvl (test code = Glucose Lvl) 109 70-99 [facility]2016-09-19 09:45:00 Test Item Value Reference Range Interpretation Comments CO2 (test code = CO2) 24 24-32 [place] 267116-09-19 09:45:00 Test Item Value Reference Range Interpretation Comments Chloride Lvl (test code = Chloride Lvl) 101 95-109 [place] 267116-09-19 09:45:00 Test Item Value Reference Range Interpretation Comments BUN (test code = BUN) 17 7-22 [facility]2016-09-19 09:45:00 Test Item Value Reference Range Interpretation Comments Potassium Lvl (test code = Potassium 4.1 3.5-5.1 Lvl) [facility]2016-09-19 09:45:00 Test Item Value Reference Range Interpretation Comments AGAP (test code = AGAP) 14.1 10.0-20.0 [facility]2016-09-19 09:45:00 Test Item Value Reference Range Interpretation Comments Albumin Lvl (test code = Albumin Lvl) 2.3 3.5-5.0 [facility]2016-09-19 09:45:00 Test Item Value Reference Range Interpretation Comments Total Protein (test code = Total 7.1 6.4-8.4 Protein) [facility]2016-09-19 09:45:00 Test Item Value Reference Range Interpretation Comments Creatinine Lvl (test code = Creatinine 1.55 0.50-1.40 Lvl) [facility]2016-09-19 09:45:00 Test Item Value Reference Range Interpretation Comments Sodium Lvl (test code = Sodium Lvl) 135 135-145 [facility]2016-09-19 09:45:00 Test Item Value Reference Range Interpretation Comments B/C Ratio (test code = B/C Ratio) 11 6-25 [facility] NorthwestJzkfvahYGXINUDYPQ4478-34-32 09:45:00 Test Item Value Reference Range Interpretation Comments MPV (test code = MPV) 7.7 7.4-10.4 [facility] NorthwestCfbdwpsDHUETJMPOT7419-15-41 09:45:00 Test Item Value Reference Range Interpretation Comments Hct (test code = Hct) 25.4 42.0-54.0 [facility] NorthwestNgxmhxrHZOEOAOTUU6720-99-26 09:45:00 Test Item Value Reference Range Interpretation Comments MCH (test code = MCH) 32.7 pg 27.0-31.0 [facility] NorthwestKlxkitjPTCMUMWOVI2695-52-06 09:45:00 Test Item Value Reference Range Interpretation Comments MCV (test code = MCV) 96.6 80.0-94.0 [place] 868756-09-19 09:45:00 Test Item Value Reference Range Interpretation Comments Platelet (test code = Platelet) 296 133-450 [facility] NorthwestJfaugcmLUNTMFPMCA6529-81-72 09:45:00 Test Item Value Reference Range Interpretation Comments RDW (test code = RDW) 14.7 11.5-14.5 [facility] NorthwestIxakeioGDHLFKOZSZ8822-35-79 09:45:00 Test Item Value Reference Range Interpretation Comments MCHC (test code = MCHC) 33.8 32.0-36.0 [facility] NorthwestSemhoryHZYOYDQLRT2270-50-13 09:45:00 Test Item Value Reference Range Interpretation Comments WBC (test code = WBC) 8.4 3.7-10.4 [facility] NorthwestRgsbegcSAYAHEEXBY0926-67-03 09:45:00 Test Item Value Reference Range Interpretation Comments Hgb (test code = Hgb) 8.6 14.0-18.0 [facility] NorthwestUxbhhskDEFFHOYNLX5484-58-32 09:45:00 Test Item Value Reference Range Interpretation Comments RBC (test code = RBC) 2.63 4.70-6.10 [facility] NorthwestFevkouyPQGWPAIVLM3278-15-61 09:45:00 Test Item Value Reference Range Interpretation Comments Lymphocytes # (test code = Lymphocytes 1.5 1.0-5.5 #) [facility] NorthwestEmkgazyXGMEJEOLPQ4805-09-94 09:45:00 Test Item Value Reference Range Interpretation Comments Eosinophils # (test code 0.2 See_Comment [A utomated message] The = Eosinophils #) system whic h generated this result tra nsmitted reference range : <=0.5. The reference r lance was not used to int erpret this result as normal/abnormal . [facility] NorthwestTjwkvylTDYTJUKIWJ3338-19-29 09:45:00 Test Item Value Reference Range Interpretation Comments Monocytes # (test code 0.8 See_Comment [Aut omated message] The = Monocytes #) system which generated this result tra nsmitted reference range : <=0.8. The reference r lance was not used to int erpret this result as normal/abnormal . [facility] NorthwestAjhxknbEVEVEIDGGN0827-07-06 09:45:00 Test Item Value Reference Range Interpretation Comments Basophils # (test code 0.1 See_Comment [Aut omated message] The = Basophils #) system which generated this result tra nsmitted reference range : <=0.2. The reference r lance was not used to int erpret this result as normal/abnormal . [place] 868756-09-19 09:45:00 Test Item Value Reference Range Interpretation Comments Monocytes (test code = Monocytes) 9.9 2.0-12.0 [facility] NorthwestVmkkyxwMPDGGLGPEQ5317-73-52 09:45:00 Test Item Value Reference Range Interpretation Comments Lymphocytes (test code = Lymphocytes) 17.2 20.0-40.0 [facility] NorthwestMzbblzgJKZGXVNQGJ8868-36-25 09:45:00 Test Item Value Reference Range Interpretation Comments Segs (test code = Segs) 69.8 45.0-75.0 [facility] NorthwestXimjzugTKQZJQXGNR5552-84-35 09:45:00 Test Item Value Reference Range Interpretation Comments Eosinophils (test code = 2.2 See_Comment [A utomated message] The Eosinophils) system which ge nerated this result tra nsmitted reference range : <=4.0. The reference r lance was not used to int erpret this result as normal/abnormal . [facility] NorthwestBuswfvmFLCRVQCNIE2230-57-33 09:45:00 Test Item Value Reference Range Interpretation Comments Segs-Bands # (test code = Segs-Bands #) 5.9 1.5-8.1 [facility] NorthwestElhifcePKIDZPVUTO5873-43-16 09:45:00 Test Item Value Reference Range Interpretation Comments Basophils (test code = 0.9 See_Comment [Aut omated message] The Basophils) system which ge nerated this result tra nsmitted reference range : <=1.0. The reference r lance was not used to int erpret this result as normal/abnormal . [facility]RbbjytrIFKAXYSYYH0080-57-73 09:45:00 Test Item Value Reference Range Interpretation Comments Vanco Tr (test code = Vanco Tr) 14.8 [facility]LimewvoOQSGFMKWXX7639-60-51 09:45:00 Test Item Value Reference Range Interpretation Comments Vanco Tr TND (test code = Vanco Tr TND) TBD [facility] [id number] 09:54:00 Test Item Value Reference Range Interpretation Comments Total Protein (test code = Total 6.3 6.4-8.4 Protein) [facility] [id number] 09:54:00 Test Item Value Reference Range Interpretation Comments A/G Ratio (test code = A/G Ratio) 0.7 0.7-1.6 [place] 267116-09-18 09:54:00 Test Item Value Reference Range Interpretation Comments B/C Ratio (test code = B/C Ratio) 12 6-25 [place] 267116-09-18 09:54:00 Test Item Value Reference Range Interpretation Comments Globulin (test code = Globulin) 3.8 2.7-4.2 [place] 267116-09-18 09:54:00 Test Item Value Reference Range Interpretation Comments AST (test code = AST) 12 See_Comment [Auto mated message] The system which ge nerated this result transmit roseann reference range : <=37. The reference range was not used to interpr et this result as reggie l/abnormal. [place] 267116-09-18 09:54:00 Test Item Value Reference Range Interpretation Comments Alk Phos (test code = Alk Phos) 61 39-136 [facility]2016-09-18 09:54:00 Test Item Value Reference Range Interpretation Comments Albumin Lvl (test code = Albumin Lvl) 2.5 3.5-5.0 [facility]2016-09-18 09:54:00 Test Item Value Reference Range Interpretation Comments ALT (test code = ALT) 26 See_Comment [Auto mated message] The system which ge nerated this result transmit roseann reference range : <=65. The reference range was not used to interpr et this result as reggie l/abnormal. [place] 267116-09-18 09:54:00 Test Item Value Reference Range Interpretation Comments Bili Total (test code = Bili Total) 0.4 0.2-1.3 [place] 267116-09-18 09:54:00 Test Item Value Reference Range Interpretation Comments AGAP (test code = AGAP) 13.5 10.0-20.0 [facility] [id number] 09:54:00 Test Item Value Reference Range Interpretation Comments eGFR (test code = eGFR) 57 [facility]2016-09-18 09:54:00 Test Item Value Reference Range Interpretation Comments CO2 (test code = CO2) 27 24-32 [place] 267116-09-18 09:54:00 Test Item Value Reference Range Interpretation Comments Calcium Lvl (test code = Calcium Lvl) 8.7 8.5-10.5 [facility]2016-09-18 09:54:00 Test Item Value Reference Range Interpretation Comments Chloride Lvl (test code = Chloride Lvl) 100 95-109 [facility]2016-09-18 09:54:00 Test Item Value Reference Range Interpretation Comments Potassium Lvl (test code = Potassium 4.5 3.5-5.1 Lvl) [facility]2016-09-18 09:54:00 Test Item Value Reference Range Interpretation Comments Creatinine Lvl (test code = Creatinine 1.42 0.50-1.40 Lvl) [facility]2016-09-18 09:54:00 Test Item Value Reference Range Interpretation Comments Sodium Lvl (test code = Sodium Lvl) 136 135-145 [facility]2016-09-18 09:54:00 Test Item Value Reference Range Interpretation Comments Glucose Lvl (test code = Glucose Lvl) 105 70-99 [facility]2016-09-18 09:54:00 Test Item Value Reference Range Interpretation Comments BUN (test code = BUN) 17 - [place] [id number] 09:54:00 Test Item Value Reference Range Interpretation Comments Vanco Tr TND (test code = Vanco Tr TND) TBD [place] [id number] 09:54:00 Test Item Value Reference Range Interpretation Comments Vanco Tr (test code = Vanco Tr) 9.3 [facility]2016-09-18 09:54:00 Test Item Value Reference Range Interpretation Comments Total Protein (test code = Total 6.3 6.4-8.4 Protein) [facility]2016-09-18 09:54:00 Test Item Value Reference Range Interpretation Comments A/G Ratio (test code = A/G Ratio) 0.7 0.7-1.6 [facility]2016-09-18 09:54:00 Test Item Value Reference Range Interpretation Comments B/C Ratio (test code = B/C Ratio) 12 6- [facility]2016-09-18 09:54:00 Test Item Value Reference Range Interpretation Comments Globulin (test code = Globulin) 3.8 2.7-4.2 [facility]2016-09-18 09:54:00 Test Item Value Reference Range Interpretation Comments AST (test code = AST) 12 See_Comment [Auto mated message] The system which ge nerated this result transmit roseann reference range : <=37. The reference range was not used to interpr et this result as reggie l/abnormal. [facility]2016-09-18 09:54:00 Test Item Value Reference Range Interpretation Comments Alk Phos (test code = Alk Phos) 61 39-136 [facility]2016-09-18 09:54:00 Test Item Value Reference Range Interpretation Comments Albumin Lvl (test code = Albumin Lvl) 2.5 3.5-5.0 [facility]2016-09-18 09:54:00 Test Item Value Reference Range Interpretation Comments ALT (test code = ALT) 26 See_Comment [Auto mated message] The system which ge nerated this result transmit roseann reference range : <=65. The reference range was not used to interpr et this result as reggie l/abnormal. [facility]2016-09-18 09:54:00 Test Item Value Reference Range Interpretation Comments Bili Total (test code = Bili Total) 0.4 0.2-1.3 [place] 267116-09-18 09:54:00 Test Item Value Reference Range Interpretation Comments AGAP (test code = AGAP) 13.5 10.0-20.0 [place] 267116-09-18 09:54:00 Test Item Value Reference Range Interpretation Comments eGFR (test code = eGFR) 57 [facility]2016-09-18 09:54:00 Test Item Value Reference Range Interpretation Comments CO2 (test code = CO2) 27 24-32 [place] 267116-09-18 09:54:00 Test Item Value Reference Range Interpretation Comments Calcium Lvl (test code = Calcium Lvl) 8.7 8.5-10.5 [place] 267116-09-18 09:54:00 Test Item Value Reference Range Interpretation Comments Chloride Lvl (test code = Chloride Lvl) 100 95-109 [place] 267116-09-18 09:54:00 Test Item Value Reference Range Interpretation Comments Potassium Lvl (test code = Potassium 4.5 3.5-5.1 Lvl) [facility]2016-09-18 09:54:00 Test Item Value Reference Range Interpretation Comments Creatinine Lvl (test code = Creatinine 1.42 0.50-1.40 Lvl) [facility]2016-09-18 09:54:00 Test Item Value Reference Range Interpretation Comments Sodium Lvl (test code = Sodium Lvl) 136 135-145 [place] 267116-09-18 09:54:00 Test Item Value Reference Range Interpretation Comments Glucose Lvl (test code = Glucose Lvl) 105 70-99 [place] 267116-09-18 09:54:00 Test Item Value Reference Range Interpretation Comments BUN (test code = BUN) 17 7-22 [place] 565206-09-18 09:54:00 Test Item Value Reference Range Interpretation Comments Vanco Tr TND (test code = Vanco Tr TND) TBD [place] [id number] 09:54:00 Test Item Value Reference Range Interpretation Comments Vanco Tr (test code = Vanco Tr) 9.3 [facility]2016-09-17 17:04:00 Test Item Value Reference Range Interpretation Comments Phosphorus (test code = Phosphorus) 4.9 2.5-4.5 [facility]2016-09-17 17:04:00 Test Item Value Reference Range Interpretation Comments Magnesium Lvl (test code = Magnesium 1.8 1.8-2.4 Lvl) [facility] NorthwestKwpwdbjJALKUYNFKD9623-68-82 17:04:00 Test Item Value Reference Range Interpretation Comments Segs (test code = Segs) 70.5 45.0-75.0 [facility] NorthwestThxosxxEXERXDTKVS6539-15-31 17:04:00 Test Item Value Reference Range Interpretation Comments Lymphocytes (test code = Lymphocytes) 18.0 20.0-40.0 [facility] NorthwestBexryyxTITZUWILVR7203-65-32 17:04:00 Test Item Value Reference Range Interpretation Comments Monocytes (test code = Monocytes) 9.7 2.0-12.0 [facility] NorthwestVyhcpbsYBKKZNFWZU1527-56-71 17:04:00 Test Item Value Reference Range Interpretation Comments Segs-Bands # (test code = Segs-Bands #) 6.4 1.5-8.1 [place] [id number] 17:04:00 Test Item Value Reference Range Interpretation Comments Lymphocytes # (test code = Lymphocytes 1.6 1.0-5.5 #) [facility] NorthwestHwitfpbSVEOVBUCRC8184-92-89 17:04:00 Test Item Value Reference Range Interpretation Comments Basophils (test code = 0.5 See_Comment [Aut omated message] The Basophils) system which ge nerated this result tra nsmitted reference range : <=1.0. The reference r lance was not used to int erpret this result as normal/abnormal . [facility] NorthwestCrxijxfELWMGCLVFM9578-95-63 17:04:00 Test Item Value Reference Range Interpretation Comments Eosinophils (test code = 1.3 See_Comment [A utomated message] The Eosinophils) system which ge nerated this result tra nsmitted reference range : <=4.0. The reference r lance was not used to int erpret this result as normal/abnormal . [facility] NorthwestTwtocsjFUICVJZXDR1278-60-19 17:04:00 Test Item Value Reference Range Interpretation Comments Monocytes # (test code 0.9 See_Comment [Aut omated message] The = Monocytes #) system which generated this result tra nsmitted reference range : <=0.8. The reference r lance was not used to int erpret this result as normal/abnormal . [facility] NorthwestWmdlekbVMVMOARNNM7179-35-40 17:04:00 Test Item Value Reference Range Interpretation Comments Eosinophils # (test code 0.1 See_Comment [A utomated message] The = Eosinophils #) system whic h generated this result tra nsmitted reference range : <=0.5. The reference r lance was not used to int erpret this result as normal/abnormal . [facility] NorthwestWiwzitaCTYHWBNZHE2442-58-04 17:04:00 Test Item Value Reference Range Interpretation Comments Platelet (test code = Platelet) 307 133-450 [facility] NorthwestXtaqqhxPWCZIJCVRA1627-15-07 17:04:00 Test Item Value Reference Range Interpretation Comments MPV (test code = MPV) 6.9 7.4-10.4 [facility] NorthwestCkytpvuUDDJVMXQNG7567-37-36 17:04:00 Test Item Value Reference Range Interpretation Comments MCHC (test code = MCHC) 33.9 32.0-36.0 [facility] NorthwestTqfhdlzOLFDQSDLPY0313-27-82 17:04:00 Test Item Value Reference Range Interpretation Comments RDW (test code = RDW) 15.1 11.5-14.5 [facility] NorthwestNapqdxzGSAJRYPJXN6151-62-38 17:04:00 Test Item Value Reference Range Interpretation Comments RBC (test code = RBC) 2.69 4.70-6.10 [facility] NorthwestWzdcpxaQZQDEUPUQK1741-37-13 17:04:00 Test Item Value Reference Range Interpretation Comments MCV (test code = MCV) 96.5 80.0-94.0 [facility] NorthwestIvfrrjjKKJJWVKZPY0492-54-88 17:04:00 Test Item Value Reference Range Interpretation Comments WBC (test code = WBC) 9.1 3.7-10.4 [facility] NorthwestMozvspgLHMFSFKNNQ2310-67-12 17:04:00 Test Item Value Reference Range Interpretation Comments Hgb (test code = Hgb) 8.8 14.0-18.0 [facility] NorthwestYosxgosCGYPICYLXS8668-03-23 17:04:00 Test Item Value Reference Range Interpretation Comments Hct (test code = Hct) 26.0 42.0-54.0 [facility] NorthwestUaiocjlYAOABVTUFA9675-66-47 17:04:00 Test Item Value Reference Range Interpretation Comments MCH (test code = MCH) 32.7 pg 27.0-31.0 [facility]11 17:04:00 Test Item Value Reference Range Interpretation Comments Phosphorus (test code = Phosphorus) 4.9 2.5-4.5 [facility] VVWUX6871-19-00 17:04:00 Test Item Value Reference Range Interpretation Comments Magnesium Lvl (test code = Magnesium 1.8 1.8-2.4 Lvl) [facility] NorthwestCexyfaiPQIYAZJCTL1824-21-80 17:04:00 Test Item Value Reference Range Interpretation Comments Segs (test code = Segs) 70.5 45.0-75.0 [facility] NorthwestWyumsvbTCOLWXXGSJ1427-20-47 17:04:00 Test Item Value Reference Range Interpretation Comments Lymphocytes (test code = Lymphocytes) 18.0 20.0-40.0 [facility] NorthwestUcasrpuVSYBLAEOXM2151-20-91 17:04:00 Test Item Value Reference Range Interpretation Comments Monocytes (test code = Monocytes) 9.7 2.0-12.0 [facility] NorthwestElymhgyBUIORAQZPT6324-35-31 17:04:00 Test Item Value Reference Range Interpretation Comments Segs-Bands # (test code = Segs-Bands #) 6.4 1.5-8.1 [facility] NorthwestVlawkhmTNZKOGXHYE1450-07-30 17:04:00 Test Item Value Reference Range Interpretation Comments Lymphocytes # (test code = Lymphocytes 1.6 1.0-5.5 #) [facility] NorthwestUqogvbjAYPPCKIREC2494-44-52 17:04:00 Test Item Value Reference Range Interpretation Comments Basophils (test code = 0.5 See_Comment [Aut omated message] The Basophils) system which ge nerated this result tra nsmitted reference range : <=1.0. The reference r lance was not used to int erpret this result as normal/abnormal . [facility] NorthwestNzairwrDAAHDVSBEQ8126-80-53 17:04:00 Test Item Value Reference Range Interpretation Comments Eosinophils (test code = 1.3 See_Comment [A utomated message] The Eosinophils) system which ge nerated this result tra nsmitted reference range : <=4.0. The reference r lance was not used to int erpret this result as normal/abnormal . [facility] NorthwestTlhiifpHMKQSXVXDY2919-45-81 17:04:00 Test Item Value Reference Range Interpretation Comments Monocytes # (test code 0.9 See_Comment [Aut omated message] The = Monocytes #) system which generated this result tra nsmitted reference range : <=0.8. The reference r lance was not used to int erpret this result as normal/abnormal . [facility] NorthwestQexwzuaLJCDMDIREQ6075-98-36 17:04:00 Test Item Value Reference Range Interpretation Comments Eosinophils # (test code 0.1 See_Comment [A utomated message] The = Eosinophils #) system [facility] generated this result tra nsmitted reference range : <=0.5. The reference r lance was not used to int erpret this result as normal/abnormal . [facility] NorthwestGvecmcdIQRINMVMPM7449-88-61 17:04:00 Test Item Value Reference Range Interpretation Comments Platelet (test code = Platelet) 307 133-450 [facility] NorthwestRnnxpcvQKZFMBIIPV4013-27-72 17:04:00 Test Item Value Reference Range Interpretation Comments MPV (test code = MPV) 6.9 7.4-10.4 [facility] NorthwestGttzqblPQAABKRQCL4004-53-33 17:04:00 Test Item Value Reference Range Interpretation Comments MCHC (test code = MCHC) 33.9 32.0-36.0 [facility] NorthwestUwmpplmHCDCATTUHC7793-40-02 17:04:00 Test Item Value Reference Range Interpretation Comments RDW (test code = RDW) 15.1 11.5-14.5 [facility] NorthwestBcwgaqaYLZSOLDXRX6300-92-98 17:04:00 Test Item Value Reference Range Interpretation Comments RBC (test code = RBC) 2.69 4.70-6.10 [facility] NorthwestYxhoqacBBWBXJVHBI6667-54-00 17:04:00 Test Item Value Reference Range Interpretation Comments MCV (test code = MCV) 96.5 80.0-94.0 [facility] NorthwestErpqhvrSBYDIGQPDG8868-42-56 17:04:00 Test Item Value Reference Range Interpretation Comments WBC (test code = WBC) 9.1 3.7-10.4 [facility] NorthwestLcgzmotDILGVHNGMF7974-91-16 17:04:00 Test Item Value Reference Range Interpretation Comments Hgb (test code = Hgb) 8.8 14.0-18.0 [facility] NorthwestHoowbyxZYSVVRLXAU4033-87-20 17:04:00 Test Item Value Reference Range Interpretation Comments Hct (test code = Hct) 26.0 42.0-54.0 [facility] NorthwestFtbgitaCLHKAYPERZ0479-47-98 17:04:00 Test Item Value Reference Range Interpretation Comments MCH (test code = MCH) 32.7 pg 27.0-31.0 [facility] NorthwestZdncplgHXOCYTGEZK5251-58-01 08:18:00 Test Item Value Reference Range Interpretation Comments Segs-Bands # (test code = Segs-Bands #) 7.7 1.5-8.1 [facility] NorthwestDawxyimAUXDDUUKAK8523-19-45 08:18:00 Test Item Value Reference Range Interpretation Comments Basophils (test code = 1.5 See_Comment [Aut omated message] The Basophils) system which ge nerated this result tra nsmitted reference range : <=1.0. The reference r lance was not used to int erpret this result as normal/abnormal . [facility] NorthwestGwpsgegZHHOGYGCFY4807-92-61 08:18:00 Test Item Value Reference Range Interpretation Comments Basophils # (test code 0.2 See_Comment [Aut omated message] The = Basophils #) system which generated this result tra nsmitted reference range : <=0.2. The reference r lance was not used to int erpret this result as normal/abnormal . [facility] NorthwestRduptjuGPZWCPBJRE7372-69-49 08:18:00 Test Item Value Reference Range Interpretation Comments Eosinophils # (test code 0.2 See_Comment [A utomated message] The = Eosinophils #) system whic h generated this result tra nsmitted reference range : <=0.5. The reference r lance was not used to int erpret this result as normal/abnormal . [facility] NorthwestJwjbeyvGKJYPEWKKQ3365-51-89 08:18:00 Test Item Value Reference Range Interpretation Comments Monocytes # (test code 1.2 See_Comment [Aut omated message] The = Monocytes #) system which generated this result tra nsmitted reference range : <=0.8. The reference r lance was not used to int erpret this result as normal/abnormal . [facility] NorthwestMyifsoyJFCUANSJWS6271-34-87 08:18:00 Test Item Value Reference Range Interpretation Comments Segs (test code = Segs) 69.4 45.0-75.0 [facility] NorthwestTtrbubrEOKYDXBURB7824-96-87 08:18:00 Test Item Value Reference Range Interpretation Comments Monocytes (test code = Monocytes) 10.5 2.0-12.0 [facility] NorthwestMpuwbluWALCDYSXIA7527-86-26 08:18:00 Test Item Value Reference Range Interpretation Comments Eosinophils (test code = 1.6 See_Comment [A utomated message] The Eosinophils) system which ge nerated this result tra nsmitted reference range : <=4.0. The reference r lance was not used to int erpret this result as normal/abnormal . [facility] NorthwestDdrvtxdIDZJOCGOXJ3289-15-70 08:18:00 Test Item Value Reference Range Interpretation Comments Lymphocytes # (test code = Lymphocytes 1.9 1.0-5.5 #) [facility] NorthwestCphoveiWEPTGXSXYK9717-81-64 08:18:00 Test Item Value Reference Range Interpretation Comments Lymphocytes (test code = Lymphocytes) 17.0 20.0-40.0 [facility] NorthwestVaclyxfUQKYMQCQEF2086-77-78 08:18:00 Test Item Value Reference Range Interpretation Comments Hct (test code = Hct) 28.9 42.0-54.0 [facility] NorthwestJoorxwzGOJNZJKYVA4742-58-13 08:18:00 Test Item Value Reference Range Interpretation Comments MCHC (test code = MCHC) 33.6 32.0-36.0 [facility] NorthwestTmakmetPRWYSSRYKO0465-90-23 08:18:00 Test Item Value Reference Range Interpretation Comments RDW (test code = RDW) 14.6 11.5-14.5 [facility] NorthwestChkcaefOCTFBWIPOK6837-86-65 08:18:00 Test Item Value Reference Range Interpretation Comments MCV (test code = MCV) 96.6 80.0-94.0 [facility] NorthwestEpnsuefTEZIJQUMLW9428-14-12 08:18:00 Test Item Value Reference Range Interpretation Comments MCH (test code = MCH) 32.4 pg 27.0-31.0 [facility] NorthwestXgmjikiTPTAUOOQLM7646-80-88 08:18:00 Test Item Value Reference Range Interpretation Comments Hgb (test code = Hgb) 9.7 14.0-18.0 [facility] NorthwestJfhmmscKCBIPKBVEB2430-42-99 08:18:00 Test Item Value Reference Range Interpretation Comments WBC (test code = WBC) 11.1 3.7-10.4 [facility] NorthwestLnutgptNVSSONCUUH5608-84-94 08:18:00 Test Item Value Reference Range Interpretation Comments RBC (test code = RBC) 2.99 4.70-6.10 [place] 868756-09-17 08:18:00 Test Item Value Reference Range Interpretation Comments Platelet (test code = Platelet) 360 133-450 [facility] NorthwestQbjiwbjROLVGAWWZE9513-72-70 08:18:00 Test Item Value Reference Range Interpretation Comments MPV (test code = MPV) 7.4 7.4-10.4 [facility] NorthwestQppzpcaXQEOGZZVIS6080-78-29 08:18:00 Test Item Value Reference Range Interpretation Comments Segs-Bands # (test code = Segs-Bands #) 7.7 1.5-8.1 [place] [id number] 08:18:00 Test Item Value Reference Range Interpretation Comments Basophils (test code = 1.5 See_Comment [Aut omated message] The Basophils) system which ge nerated this result tra nsmitted reference range : <=1.0. The reference r lance was not used to int erpret this result as normal/abnormal . [facility] NorthwestVpgenrpSGKESWVFDN4529-69-24 08:18:00 Test Item Value Reference Range Interpretation Comments Basophils # (test code 0.2 See_Comment [Aut omated message] The = Basophils #) system which generated this result tra nsmitted reference range : <=0.2. The reference r lance was not used to int erpret this result as normal/abnormal . [facility] NorthwestMdrssogCYDWZHJQBK2817-06-04 08:18:00 Test Item Value Reference Range Interpretation Comments Eosinophils # (test code 0.2 See_Comment [A utomated message] The = Eosinophils #) system whic h generated this result tra nsmitted reference range : <=0.5. The reference r lance was not used to int erpret this result as normal/abnormal . [facility] NorthwestIuhuvlpCOJCOBUAOH4208-85-78 08:18:00 Test Item Value Reference Range Interpretation Comments Monocytes # (test code 1.2 See_Comment [Aut omated message] The = Monocytes #) system which generated this result tra nsmitted reference range : <=0.8. The reference r lance was not used to int erpret this result as normal/abnormal . [facility] NorthwestCdodenaTWJMUCSBDC8417-18-97 08:18:00 Test Item Value Reference Range Interpretation Comments Segs (test code = Segs) 69.4 45.0-75.0 [facility] NorthwestNtbzlegCPZOXSIVJY1058-50-63 08:18:00 Test Item Value Reference Range Interpretation Comments Monocytes (test code = Monocytes) 10.5 2.0-12.0 [facility] NorthwestKieaimnFUAWFEDKAZ3994-98-22 08:18:00 Test Item Value Reference Range Interpretation Comments Eosinophils (test code = 1.6 See_Comment [A utomated message] The Eosinophils) system which ge nerated this result tra nsmitted reference range : <=4.0. The reference r lance was not used to int erpret this result as normal/abnormal . [facility] NorthwestVfflckyYDCTNFNAID5588-20-09 08:18:00 Test Item Value Reference Range Interpretation Comments Lymphocytes # (test code = Lymphocytes 1.9 1.0-5.5 #) [facility] NorthwestTkdndvpGBOBEWRTJB5458-13-15 08:18:00 Test Item Value Reference Range Interpretation Comments Lymphocytes (test code = Lymphocytes) 17.0 20.0-40.0 [facility] NorthwestGfnhryqOFPHTKFXSS1681-21-53 08:18:00 Test Item Value Reference Range Interpretation Comments Hct (test code = Hct) 28.9 42.0-54.0 [facility] NorthwestUmfeokgFCVRKAXFXQ9011-59-77 08:18:00 Test Item Value Reference Range Interpretation Comments MCHC (test code = MCHC) 33.6 32.0-36.0 [facility] NorthwestPqwevxfCKTMKZUXFB7854-82-45 08:18:00 Test Item Value Reference Range Interpretation Comments RDW (test code = RDW) 14.6 11.5-14.5 [facility] NorthwestEyujmlbAXZMGCTPUK1979-94-19 08:18:00 Test Item Value Reference Range Interpretation Comments MCV (test code = MCV) 96.6 80.0-94.0 [facility] NorthwestYgcixiiXYBNJOWQEV1900-49-30 08:18:00 Test Item Value Reference Range Interpretation Comments MCH (test code = MCH) 32.4 pg 27.0-31.0 [facility] NorthwestKpkphxrKMGCUQAHAO8255-42-13 08:18:00 Test Item Value Reference Range Interpretation Comments Hgb (test code = Hgb) 9.7 14.0-18.0 [facility] NorthwestYuakhkhSUNDAEVTPM5373-27-81 08:18:00 Test Item Value Reference Range Interpretation Comments WBC (test code = WBC) 11.1 3.7-10.4 [facility] NorthwestZkszbcxIHJPZRFOHC3119-13-80 08:18:00 Test Item Value Reference Range Interpretation Comments RBC (test code = RBC) 2.99 4.70-6.10 [facility] NorthwestHexjqenAWKZAIJUMI3533-76-57 08:18:00 Test Item Value Reference Range Interpretation Comments Platelet (test code = Platelet) 360 133-450 [facility] NorthwestYazlhucDCOVQTWGMT5383-43-59 08:18:00 Test Item Value Reference Range Interpretation Comments MPV (test code = MPV) 7.4 7.4-10.4 [place] [id number] 09:02:00 Test Item Value Reference Range Interpretation Comments Vanco Tr (test code = Vanco Tr) 10.9 [facility]zeytvxJWRPPVRFIT0121-85-86 09:02:00 Test Item Value Reference Range Interpretation Comments Vanco Tr TND (test code = Vanco Tr TND) [facility]BD [facility]LqyxmyrEGAEQBSXVX8834-22-51 09:02:00 Test Item Value Reference Range Interpretation Comments Vanco Tr (test code = Vanco Tr) 10.9 [facility]OqibsggZYOXNCXJAH3645-20-94 09:02:00 Test Item Value Reference Range Interpretation Comments Vanco Tr TND (test code = Vanco Tr TND) TBD [facility] NorthwestUvgkcijSXNOPOSOSA9580-25-27 08:14:00 Test Item Value Reference Range Interpretation Comments Basophils # (test code 0.1 See_Comment [Aut omated message] The = Basophils #) system which generated this result tra nsmitted reference range : <=0.2. The reference r lance was not used to int erpret this result as normal/abnormal . [facility] CenterTyaiaiyKMVYJIFHBY2840-44-81 08:14:00 Test Item Value Reference Range Interpretation Comments Vanco Lvl (test code = Vanco Lvl) 14.1 [facility] NorthwestViqiuhaYBUKFZGZZT1323-58-55 08:14:00 Test Item Value Reference Range Interpretation Comments Basophils # (test code 0.1 See_Comment [Aut omated message] The = Basophils #) system which generated this result tra nsmitted reference range : <=0.2. The reference r lance was not used to int erpret this result as normal/abnormal . [place] [id number] 08:14:00 Test Item Value Reference Range Interpretation Comments Vanco Lvl (test code = Vanco Lvl) 14.1 [facility] HospitalNlfjxfjVIXCAGOJIJ0219-14-37 18:46:00 Test Item Value Reference Range Interpretation Comments Sed Rate (test code = no gt See_Comment [Auto mated message] The Sed Rate) system which ge nerated this result transmit roseann reference range : <=15. The reference range was not used to interpr et this result as reggie l/abnormal. [facility] HospitalUekhqpjEZHJYZGQEY0731-58-61 18:46:00 Test Item Value Reference Range Interpretation Comments Sed Rate (test code = no gt See_Comment [Auto mated message] The Sed Rate) system which ge nerated this result transmit roseann reference range : <=15. The reference range was not used to interpr et this result as reggie l/abnormal. [facility] [employer] [id number] 10:38:00 Test Item Value Reference Range Interpretation Comments Antibody Scrn (test Negative (02/08/16 5:38 code = Antibody Scrn) AM) [facility] [employer] [id number] 10:38:00 Test Item Value Reference Range Interpretation Comments ABO/Rh (test code = ABO/Rh) B POS [facility] [employer] [id number] 10:38:00 Test Item Value Reference Range Interpretation Comments Procalcitonin Lvl (test 0.11 See_Comment [Au tomated message] code = Procalcitonin Lvl) Th e system which generated this result transmitted ref erence range: <=0.10. The reference range was not used to interpr et this result as normal/abnormal . [facility] [id number] 10:38:00 Test Item Value Reference Range Interpretation Comments Antibody Scrn (test Negative (02/08/16 5:38 code = Antibody Scrn) AM) [facility] [id number] 10:38:00 Test Item Value Reference Range Interpretation Comments ABO/Rh (test code = ABO/Rh) B POS [facility]CHE[facility] [id number] 10:38:00 Test Item Value Reference Range Interpretation Comments Procalcitonin Lvl (test 0.11 See_Comment [Au tomated message] code = Procalcitonin Lvl) Th e system which generated this result transmitted ref erence range: <=0.10. The reference range was not used to interpr et this result as normal/abnormal . [facility] [id number] 05:36:00 Test Item Value Reference Range Interpretation Comments UA Sq Epi (test code = UA Sq Epi) None [facility]en [facility] AND [id number] 05:36:00 Test Item Value Reference Range Interpretation Comments UA Urobilinogen (test code = UA <=1.0 mg/dL 0.1-1.0 Urobilinogen) [facility] [id number] 05:36:00 Test Item Value Reference Range Interpretation Comments UA Leuk Est (test Negative (02/05/16 12:36 code = UA Leuk Est) AM) [facility] [id number] 05:36:00 Test Item Value Reference Range Interpretation Comments UA Bacteria (test code = UA Occasional /HPF Bacteria) [facility] [id number] 05:36:00 Test Item Value Reference Range Interpretation Comments UA WBC (test code = 1 See_Comment [Automa roseann message] The UA WBC) system which ge nerated this result transmit roseann reference range : <=5. The reference range was not used to interpr et this result as reggie l/abnormal. [facility] AND [id number] 05:36:00 Test Item Value Reference Range Interpretation Comments UA Blood (test code = Negative (02/05/16 12:36 UA Blood) AM) [facility] AND [id number] 05:36:00 Test Item Value Reference Range Interpretation Comments UA Bili (test code = Negative *NA*(02/05/16 UA Bili) 12:36 AM) [facility] AND [id number] 05:36:00 Test Item Value Reference Range Interpretation Comments UA Nitrite (test code Negative (02/05/16 12:36 = UA Nitrite) AM) [facility] AND [id number] 05:36:00 Test Item Value Reference Range Interpretation Comments UA Glucose (test code = UA Negative mg/dL Glucose) [facility] AND [id number] 05:36:00 Test Item Value Reference Range Interpretation Comments UA Protein (test code = UA Negative mg/dL Protein) [facility] AND [id number] 05:36:00 Test Item Value Reference Range Interpretation Comments UA Turbidity (test code = Clear (02/05/16 12:36 UA Turbidity) AM) [facility] AND [id number] 05:36:00 Test Item Value Reference Range Interpretation Comments UA pH (test code = UA pH) 6.0 5.0-8.0 [facility] AND [id number] 05:36:00 Test Item Value Reference Range Interpretation Comments UA Color (test code = Light Yellow UA Color) *NA*(02/05/16 12:36 AM) [facility] AND [id number] 05:36:00 Test Item Value Reference Range Interpretation Comments UA Ketones (test code = UA Negative mg/dL Ketones) [facility] AND [id number] 05:36:00 Test Item Value Reference Range Interpretation Comments UA Spec Grav (test code = UA Spec Grav) 1.006 [facility] AND [id number] 05:36:00 Test Item Value Reference Range Interpretation Comments UA Sq Epi (test code = UA Sq Epi) None Seen [facility] AND [id number] 05:36:00 Test Item Value Reference Range Interpretation Comments UA Urobilinogen (test code = UA <=1.0 mg/dL 0.1-1.0 Urobilinogen) [facility] [facility] [id number] 05:36:00 Test Item Value Reference Range Interpretation Comments UA Leuk Est (test Negative (02/05/16 12:36 code = UA Leuk Est) AM) [facility] AND [id number] 05:36:00 Test Item Value Reference Range Interpretation Comments UA Bacteria (test code = UA Occasional /HPF Bacteria) [facility] AND [id number] 05:36:00 Test Item Value Reference Range Interpretation Comments UA WBC (test code = 1 See_Comment [Automa roseann message] The UA WBC) system which ge nerated this result transmit roseann reference range : <=5. The reference range was not used to interpr et this result as reggie l/abnormal. [facility] AND [id number] 05:36:00 Test Item Value Reference Range Interpretation Comments UA Blood (test code = Negative (02/05/16 12:36 UA Blood) AM) [facility] AND [id number] 05:36:00 Test Item Value Reference Range Interpretation Comments UA Bili (test code = Negative *NA*(02/05/16 UA Bili) 12:36 AM) [facility] AND [id number] 05:36:00 Test Item Value Reference Range Interpretation Comments UA Nitrite (test code Negative (02/05/16 12:36 = UA Nitrite) AM) [facility] AND [id number] 05:36:00 Test Item Value Reference Range Interpretation Comments UA Glucose (test code = UA Negative mg/dL Glucose) [facility] AND [id number] 05:36:00 Test Item Value Reference Range Interpretation Comments UA Protein (test code = UA Negative mg/dL Protein) [facility] AND [id number] 05:36:00 Test Item Value Reference Range Interpretation Comments UA Turbidity (test code = Clear (02/05/16 12:36 UA Turbidity) AM) [facility] AND [id number] 05:36:00 Test Item Value Reference Range Interpretation Comments UA pH (test code = UA pH) 6.0 5.0-8.0 [facility] AND [id number] 05:36:00 Test Item Value Reference Range Interpretation Comments UA Color (test code = Light Yellow UA Color) *NA*(02/05/16 12:36 AM) [facility] AND [id number] 05:36:00 Test Item Value Reference Range Interpretation Comments UA Ketones (test code = UA Negative mg/dL Ketones) [facility] AND [id number] 05:36:00 Test Item Value Reference Range Interpretation Comments UA Spec Grav (test code = UA Spec Grav) 1.006 [facility] AND [id number] 21:31:00 Test Item Value Reference Range Interpretation Comments UA Sq Epi (test code = UA Sq Epi) None Seen [facility] AND [id number] 21:31:00 Test Item Value Reference Range Interpretation Comments UA Urobilinogen (test code = UA <=1.0 mg/dL 0.1-1.0 Urobilinogen) [facility] AND [id number] 21:31:00 Test Item Value Reference Range Interpretation Comments UA Blood (test code = Negative (02/01/16 4:31 UA Blood) PM) [facility] AND [id number] 21:31:00 Test Item Value Reference Range Interpretation Comments UA Nitrite (test code Negative (02/01/16 4:31 = UA Nitrite) PM) [facility] AND [id number] 21:31:00 Test Item Value Reference Range Interpretation Comments UA Leuk Est (test Negative (02/01/16 4:31 code = UA Leuk Est) PM) [facility] AND [id number] 21:31:00 Test Item Value Reference Range Interpretation Comments UA WBC (test code = 1 See_Comment [Automa roseann message] The UA WBC) system which ge nerated this result transmit roseann reference range : <=5. The reference range was not used to interpr et this result as reggie l/abnormal. [facility] AND [id number] 21:31:00 Test Item Value Reference Range Interpretation Comments UA Hyal Cast (test 3 See_Comment [Automat ed message] The code = UA Hyal Cast) system which generated this result transmit roseann reference range : <=2. The reference range was not used to interpr et this result as reggie l/abnormal. [facility] AND [id number] 21:31:00 Test Item Value Reference Range Interpretation Comments UA pH (test code = UA pH) 5.5 5.0-8.0 [facility] AND [id number] 21:31:00 Test Item Value Reference Range Interpretation Comments UA Glucose (test code = UA Negative mg/dL Glucose) [facility] AND [id number] 21:31:00 Test Item Value Reference Range Interpretation Comments UA Ketones (test code = UA Negative mg/dL Ketones) [facility] AND [id number] 21:31:00 Test Item Value Reference Range Interpretation Comments UA Bili (test code = Negative *NA*(02/01/16 UA Bili) 4:31 PM) [facility] AND [id number] 21:31:00 Test Item Value Reference Range Interpretation Comments UA Protein (test code = UA Negative mg/dL Protein) [facility] AND [id number] 21:31:00 Test Item Value Reference Range Interpretation Comments UA Color (test code = Yellow *NA*(02/01/16 4:31 UA Color) PM) [facility] AND [id number] 21:31:00 Test Item Value Reference Range Interpretation Comments UA Turbidity (test code = Clear (02/01/16 4:31 UA Turbidity) PM) [facility] AND [id number] 21:31:00 Test Item Value Reference Range Interpretation Comments UA Spec Grav (test code = UA Spec Grav) 1.007 [facility]2016-09-06 21:31:00 Test Item Value Reference Range Interpretation Comments U Chloride (test code = U Chloride) 41 [facility]2016-09-06 21:31:00 Test Item Value Reference Range Interpretation Comments U Creatinine (test code = U Creatinine) 70.40 [facility]2016-09-06 21:31:00 Test Item Value Reference Range Interpretation Comments U Sodium (test code = U Sodium) 38 [facility] AND [id number] 21:31:00 Test Item Value Reference Range Interpretation Comments UA Sq Epi (test code = UA Sq Epi) None Seen [facility] AND [id number] 21:31:00 Test Item Value Reference Range Interpretation Comments UA Urobilinogen (test code = UA <=1.0 mg/dL 0.1-1.0 Urobilinogen) [facility] AND [id number] 21:31:00 Test Item Value Reference Range Interpretation Comments UA Blood (test code = Negative (02/01/16 4:31 UA Blood) PM) [facility] AND [id number] 21:31:00 Test Item Value Reference Range Interpretation Comments UA Nitrite (test code Negative (02/01/16 4:31 = UA Nitrite) PM) [facility] AND [id number] 21:31:00 Test Item Value Reference Range Interpretation Comments UA Leuk Est (test Negative (02/01/16 4:31 code = UA Leuk Est) PM) [facility] AND [id number] 21:31:00 Test Item Value Reference Range Interpretation Comments UA WBC (test code = 1 See_Comment [Automa roseann message] The UA WBC) system which ge nerated this result transmit roseann reference range : <=5. The reference range was not used to interpr et this result as reggie l/abnormal. [facility] AND [id number] 21:31:00 Test Item Value Reference Range Interpretation Comments UA Hyal Cast (test 3 See_Comment [Automat ed message] The code = UA Hyal Cast) system which generated this result transmit roseann reference range : <=2. The reference range was not used to interpr et this result as reggie l/abnormal. [facility] AND [id number] 21:31:00 Test Item Value Reference Range Interpretation Comments UA pH (test code = UA pH) 5.5 5.0-8.0 [facility] AND [id number] 21:31:00 Test Item Value Reference Range Interpretation Comments UA Glucose (test code = UA Negative mg/dL Glucose) [facility] AND [id number] 21:31:00 Test Item Value Reference Range Interpretation Comments UA Ketones (test code = UA Negative mg/dL Ketones) [facility] AND [id number] 21:31:00 Test Item Value Reference Range Interpretation Comments UA Bili (test code = Negative *NA*(02/01/16 UA Bili) 4:31 PM) [facility] AND [id number] 21:31:00 Test Item Value Reference Range Interpretation Comments UA Protein (test code = UA Negative mg/dL Protein) [facility] [id number] 21:31:00 Test Item Value Reference Range Interpretation Comments UA Color (test code = Yellow *NA*(02/01/16 4:31 UA Color) PM) [facility] AND [id number] 21:31:00 Test Item Value Reference Range Interpretation Comments UA Turbidity (test code = Clear (02/01/16 4:31 UA Turbidity) PM) [facility] AND [id number] 21:31:00 Test Item Value Reference Range Interpretation Comments UA Spec Grav (test code = UA Spec Grav) 1.007 [facility] [id number] 21:31:00 Test Item Value Reference Range Interpretation Comments U Chloride (test code = U Chloride) 41 [facility] [id number] 21:31:00 Test Item Value Reference Range Interpretation Comments U Creatinine (test code = U Creatinine) 70.40 [facility] [id number] 21:31:00 Test Item Value Reference Range Interpretation Comments U Sodium (test code = U Sodium) 38 [facility] [id number] 20:44:00 Test Item Value Reference Range Interpretation Comments Troponin-I (test code no gt See_Comment [Auto mated message] The = Troponin-I) system which g enerated this result transmit roseann reference range : <=0.40. The reference r lance was not used to interpr et this result as reggie l/abnormal. [facility] [id number] 20:44:00 Test Item Value Reference Range Interpretation Comments Procalcitonin Lvl (test 0.13 See_Comment [Au tomated message] code = Procalcitonin Lvl) Th e system which generated this result transmitted ref erence range: <=0.10. The reference range was not used to interpr et this result as normal/abnormal . [facility] [id number] 20:44:00 Test Item Value Reference Range Interpretation Comments Lactic Acid Lvl (test code = Lactic 1.7 0.5-2.2 Acid Lvl) [facility] [id number] 20:44:00 Test Item Value Reference Range Interpretation Comments Bili Total (test code = Bili Total) 0.4 0.2-1.3 [place] [id number] 20:44:00 Test Item Value Reference Range Interpretation Comments Total Protein (test code = Total 7.7 6.4-8.4 Protein) [place] [id number] 20:44:00 Test Item Value Reference Range Interpretation Comments AST (test code = AST) 19 See_Comment [Auto mated message] The system which ge nerated this result transmit roseann reference range : <=37. The reference range was not used to interpr et this result as reggie l/abnormal. [place] [id number] 20:44:00 Test Item Value Reference Range Interpretation Comments ALT (test code = ALT) 23 See_Comment [Auto mated message] The system which ge nerated this result transmit roseann reference range : <=65. The reference range was not used to interpr et this result as reggie l/abnormal. [place] [id number] 20:44:00 Test Item Value Reference Range Interpretation Comments Alk Phos (test code = Alk Phos) 58 39-136 [place] 267116-09-05 20:44:00 Test Item Value Reference Range Interpretation Comments Albumin Lvl (test code = Albumin Lvl) 2.8 3.5-5.0 [place] 267116-09-05 20:44:00 Test Item Value Reference Range Interpretation Comments A/G Ratio (test code = A/G Ratio) 0.6 0.7-1.6 [place] 267116-09-05 20:44:00 Test Item Value Reference Range Interpretation Comments Globulin (test code = Globulin) 4.9 2.7-4.2 [facility] [id number] 20:44:00 Test Item Value Reference Range Interpretation Comments B/C Ratio (test code = B/C Ratio) 15 6-25 [place] [id number] 20:44:00 Test Item Value Reference Range Interpretation Comments PTT (test code = PTT) 42.4 s 22.9-35.8 [place] [id number] 20:44:00 Test Item Value Reference Range Interpretation Comments PT (test code = PT) 14.6 s 12.0-14.7 [facility] [id number] 20:44:00 Test Item Value Reference Range Interpretation Comments INR (test code = INR) 1.11 0.85-1.17 [facility] [id number] 20:44:00 Test Item Value Reference Range Interpretation Comments Troponin-I (test code no gt See_Comment [Auto mated message] The = Troponin-I) system which g enerated this result transmit roseann reference range : <=0.40. The reference r lance was not used to interpr et this result as reggie l/abnormal. [facility] [id number] 20:44:00 Test Item Value Reference Range Interpretation Comments Procalcitonin Lvl (test 0.13 See_Comment [Au tomated message] code = Procalcitonin Lvl) Th e system which generated this result transmitted ref erence range: <=0.10. The reference range was not used to interpr et this result as normal/abnormal . [facility] [id number] 20:44:00 Test Item Value Reference Range Interpretation Comments Lactic Acid Lvl (test code = Lactic 1.7 0.5-2.2 Acid Lvl) [facility]2016-09-05 20:44:00 Test Item Value Reference Range Interpretation Comments Bili Total (test code = Bili Total) 0.4 0.2-1.3 [facility]2016-09-05 20:44:00 Test Item Value Reference Range Interpretation Comments Total Protein (test code = Total 7.7 6.4-8.4 Protein) [facility]2016-09-05 20:44:00 Test Item Value Reference Range Interpretation Comments AST (test code = AST) 19 See_Comment [Auto mated message] The system which ge nerated this result transmit roseann reference range : <=37. The reference range was not used to interpr et this result as reggie l/abnormal. [facility] [id number] 20:44:00 Test Item Value Reference Range Interpretation Comments ALT (test code = ALT) 23 See_Comment [Auto mated message] The system which ge nerated this result transmit roseann reference range : <=65. The reference range was not used to interpr et this result as reggie l/abnormal. [facility]2016-09-05 20:44:00 Test Item Value Reference Range Interpretation Comments Alk Phos (test code = Alk Phos) 58 39-136 [facility]2016-09-05 20:44:00 Test Item Value Reference Range Interpretation Comments Albumin Lvl (test code = Albumin Lvl) 2.8 3.5-5.0 [facility]2016-09-05 20:44:00 Test Item Value Reference Range Interpretation Comments A/G Ratio (test code = A/G Ratio) 0.6 0.7-1.6 [facility]2016-09-05 20:44:00 Test Item Value Reference Range Interpretation Comments Globulin (test code = Globulin) 4.9 2.7-4.2 [facility]2016-09-05 20:44:00 Test Item Value Reference Range Interpretation Comments B/C Ratio (test code = B/C Ratio) 15 6-25 [facility] No[id number] 20:44:00 Test Item Value Reference Range Interpretation Comments PTT (test code = PTT) 42.4 s 22.9-35.8 [facility] [id number] 20:44:00 Test Item Value Reference Range Interpretation Comments PT (test code = PT) 14.6 s 12.0-14.7 [facility] NorthwestIitockbBWNZRZQASM1466-30-01 20:44:00 Test Item Value Reference Range Interpretation Comments INR (test code = INR) 1.11 0.85-1.17 [id number] 05:00:00 Test Item Value Reference Range Interpretation Comments VLDL (test code = VLDL) 77 [facility] [id number] 05:00:00 Test Item Value Reference Range Interpretation Comments HDL (test code = HDL) 29 [facility] HospitalXaudcegQEUTNP9952-15-16 05:00:00 Test Item Value Reference Range Interpretation Comments Chol (test code = Chol) 222 [facility] [id number] 05:00:00 Test Item Value Reference Range Interpretation Comments CHD Risk (test code = CHD Risk) 7.66 4.00-7.30 [facility] [id number] 05:00:00 Test Item Value Reference Range Interpretation Comments Trig (test code = Trig) 384 [facility] AustinWkhbyoqZQWGSH0797-49-60 05:00:00 Test Item Value Reference Range Interpretation Comments LDL (Calculated) (test code = LDL 116 (Calculated)) [facility] AustinXujpxqpTUWTSI6301-26-43 05:00:00 Test Item Value Reference Range Interpretation Comments VLDL (test code = VLDL) 77 [facility] [id number] 05:00:00 Test Item Value Reference Range Interpretation Comments HDL (test code = HDL) 29 [facility] [id number] 05:00:00 Test Item Value Reference Range Interpretation Comments Chol (test code = Chol) 222 [facility] [id number] 05:00:00 Test Item Value Reference Range Interpretation Comments CHD Risk (test code = CHD Risk) 7.66 4.00-7.30 [facility] AustinKntmimrHPXMTH6209-82-52 05:00:00 Test Item Value Reference Range Interpretation Comments Trig (test code = Trig) 384 [facility] [id number] 05:00:00 Test Item Value Reference Range Interpretation Comments LDL (Calculated) (test code = LDL 116 (Calculated)) [facility] AustinAutoMedxCARDIAC [id number] 04:23:00 Test Item Value Reference Range Interpretation Comments CK MB Index (test 0.8 See_Comment [Automate d message] The code = CK MB Index) system w [facility] generated this result transmit roseann reference range : <=2.5. The reference range was not used to interpr et this result as reggie l/abnormal. [facility] AustinAutoMedxCARDIAC [id number] 04:23:00 Test Item Value Reference Range Interpretation Comments CK MB (test code = CK MB) 0.6 0.5-3.6 [facility] AustinAutoMedxCARGraphScienceAC [id number] 04:23:00 Test Item Value Reference Range Interpretation Comments Troponin-I (test code no gt See_Comment [Auto mated message] The = Troponin-I) system which g enerated this result transmit roseann reference range : <=0.40. The reference r lance was not used to interpr et this result as reggie l/abnormal. [facility] FjuulCARDIAC [id number] 04:23:00 Test Item Value Reference Range Interpretation Comments Total CK (test code = Total CK) 76 12-191 [facility] [employer]2015-09-22 04:23:00 Test Item Value Reference Range Interpretation Comments CK MB Index (test 0.8 See_Comment [Automate d message] The code = CK MB Index) system w [employer] generated this result transmit roseann reference range : <=2.5. The reference range was not used to interpr et this result as reggie l/abnormal. [facility] [employer]2015-09-22 04:23:00 Test Item Value Reference Range Interpretation Comments CK MB (test code = CK MB) 0.6 0.5-3.6 [facility] [employer]2015-09-22 04:23:00 Test Item Value Reference Range Interpretation Comments Troponin-I (test code no gt See_Comment [Auto mated message] The = Troponin-I) system which g enerated this result transmit roseann reference range : <=0.40. The reference r lance was not used to interpr et this result as reggie l/abnormal. [facility] [employer]2015-09-22 04:23:00 Test Item Value Reference Range Interpretation Comments Total CK (test code = Total CK) 76 191 [facility] [employer]2015-09-22 00:27:00 Test Item Value Reference Range Interpretation Comments Troponin-I (test code no gt See_Comment [Auto mated message] The = Troponin-I) system which g enerated this result transmit roseann reference range : <=0.40. The reference r lance was not used to interpr et this result as reggie l/abnormal. [facility] [employer]2015-09-22 00:27:00 Test Item Value Reference Range Interpretation Comments Total CK (test code = Total CK) 89 12191 [facility] [employer]2015-09-22 00:27:00 Test Item Value Reference Range Interpretation Comments CK MB Index (test 1.0 See_Comment [Automate d message] The code = CK MB Index) system w [employer] generated this result transmit roseann reference range : <=2.5. The reference range was not used to interpr et this result as reggie l/abnormal. [employer]2015-09-22 00:27:00 Test Item Value Reference Range Interpretation Comments CK MB (test code = CK MB) 0.9 0.5-3.6 [facility] PerfectaannTHYROID [id number] 00:27:00 Test Item Value Reference Range Interpretation Comments TSH (test code = TSH) 2.000 0.360-3.740 [facility] [employer] [id number] 00:27:00 Test Item Value Reference Range Interpretation Comments Troponin-I (test code no gt See_Comment [Auto mated message] The = Troponin-I) system which g enerated this result transmit roseann reference range : <=0.40. The reference r lance was not used to interpr et this result as reggie l/abnormal. [facility] [employer] [id number] 00:27:00 Test Item Value Reference Range Interpretation Comments Total CK (test code = Total CK) 89 12-191 [facility] [employer]2015-09-22 00:27:00 Test Item Value Reference Range Interpretation Comments CK MB Index (test 1.0 See_Comment [Automate d message] The code = CK MB Index) system w [employer] generated this result transmit roseann reference range : <=2.5. The reference range was not used to interpr et this result as reggie l/abnormal. [facility] [employer]2015-09-22 00:27:00 Test Item Value Reference Range Interpretation Comments CK MB (test code = CK MB) 0.9 0.5-3.6 [facility] FjuulTHYROID [id number] 00:27:00 Test Item Value Reference Range Interpretation Comments TSH (test code = TSH) 2.000 0.360-3.740 [facility] [employer]2015-09-21 19:22:00 Test Item Value Reference Range Interpretation Comments CK MB Index (test 0.8 See_Comment [Automate d message] The code = CK MB Index) system w [employer] generated this result transmit roseann reference range : <=2.5. The reference range was not used to interpr et this result as reggie l/abnormal. [employer]2015-09-21 19:22:00 Test Item Value Reference Range Interpretation Comments Troponin-I (test code no gt See_Comment [Auto mated message] The = Troponin-I) system which g enerated this result transmit roseann reference range : <=0.40. The reference r lance was not used to interpr et this result as reggie l/abnormal. [facility]GraphScienceG[facility] [id number] 19:22:00 Test Item Value Reference Range Interpretation Comments Total CK (test code = Total CK) 111 12-191 [facility] [id number] 19:22:00 Test Item Value Reference Range Interpretation Comments CK MB (test code = CK MB) 0.9 0.5-3.6 [facility] [id number] 19:22:00 Test Item Value Reference Range Interpretation Comments eGFR (test code = eGFR) 70 [facility] [id number] 19:22:00 Test Item Value Reference Range Interpretation Comments Alk Phos (test code = Alk Phos) 87 39-136 [facility] [id number] 19:22:00 Test Item Value Reference Range Interpretation Comments AST (test code = AST) 23 See_Comment [Auto mated message] The system which ge nerated this result transmit roseann reference range : <=37. The reference range was not used to interpr et this result as reggie l/abnormal. [facility] AustinOn[facility] [id number] 19:22:00 Test Item Value Reference Range Interpretation Comments ALT (test code = ALT) 27 See_Comment [Auto mated message] The system which ge nerated this result transmit roseann reference range : <=65. The reference range was not used to interpr et this result as reggie l/abnormal. [facility]On[facility] [id number] 19:22:00 Test Item Value Reference Range Interpretation Comments Albumin Lvl (test code = Albumin Lvl) 3.4 3.5-5.0 [facility] [id number] 19:22:00 Test Item Value Reference Range Interpretation Comments Total Protein (test code = Total 7.7 6.4-8.4 Protein) [facility] [id number] 19:22:00 Test Item Value Reference Range Interpretation Comments A/G Ratio (test code = A/G Ratio) 0.8 0.7-1.6 [facility] [id number] 19:22:00 Test Item Value Reference Range Interpretation Comments Globulin (test code = Globulin) 4.3 2.0-4.0 [facility]2015-09-21 19:22:00 Test Item Value Reference Range Interpretation Comments B/C Ratio (test code = B/C Ratio) 6 6- [facility]2015-09-21 19:22:00 Test Item Value Reference Range Interpretation Comments AGAP (test code = AGAP) 11.8 10.0-20.0 [facility]2015-09-21 19:22:00 Test Item Value Reference Range Interpretation Comments Bili Total (test code = Bili Total) 0.4 0.2-1.3 [facility]2015-09-21 19:22:00 Test Item Value Reference Range Interpretation Comments Calcium Lvl (test code = Calcium Lvl) 9.2 8.5-10.5 [facility]2015-09-21 19:22:00 Test Item Value Reference Range Interpretation Comments CO2 (test code = CO2) 25 24-32 [facility]2015-09-21 19:22:00 Test Item Value Reference Range Interpretation Comments Glucose Lvl (test code = Glucose Lvl) 88 70-99 [facility]2015-09-21 19:22:00 Test Item Value Reference Range Interpretation Comments Chloride Lvl (test code = Chloride Lvl) 106 95-109 [facility]2015-09-21 19:22:00 Test Item Value Reference Range Interpretation Comments Potassium Lvl (test code = Potassium 4.8 3.5-5.1 Lvl) [facility]2015-09-21 19:22:00 Test Item Value Reference Range Interpretation Comments Sodium Lvl (test code = Sodium Lvl) 138 135-145 [facility]2015-09-21 19:22:00 Test Item Value Reference Range Interpretation Comments Creatinine Lvl (test code = Creatinine 1.2 0.5-1.4 Lvl) [facility]2015-09-21 19:22:00 Test Item Value Reference Range Interpretation Comments BUN (test code = BUN) 7 12-16 [facility]2015-09-21 19:22:00 Test Item Value Reference Range Interpretation Comments Magnesium Lvl (test code = Magnesium 2.0 1.8-2.4 Lvl) [facility] NorthwestEudmsdaFHKBFZRYLY0231-85-94 19:22:00 Test Item Value Reference Range Interpretation Comments Eosinophils # (test code 0.4 See_Comment [A utomated message] The = Eosinophils #) system whic h generated this result tra nsmitted reference range : <=0.5. The reference r lance was not used to int erpret this result as normal/abnormal . [facility] Northwe[id number] 19:22:00 Test Item Value Reference Range Interpretation Comments Basophils # (test code 0.0 See_Comment [Aut omated message] The = Basophils #) system which generated this result tra nsmitted reference range : <=0.2. The reference r lance was not used to int erpret this result as normal/abnormal . [facility] NorthwestYexrrjhAEAATXXMYT3737-48-54 19:22:00 Test Item Value Reference Range Interpretation Comments Segs-Bands # (test code = Segs-Bands #) 4.6 1.5-8.1 [facility] NorthwestQbditbkLXTYXQNZMU6278-66-24 19:22:00 Test Item Value Reference Range Interpretation Comments Monocytes # (test code 0.8 See_Comment [Aut omated message] The = Monocytes #) system which generated this result tra nsmitted reference range : <=0.8. The reference r lance was not used to int erpret this result as normal/abnormal . [facility] NorthwestEviqnooSWEKMANQXP7910-89-74 19:22:00 Test Item Value Reference Range Interpretation Comments Monocytes (test code = Monocytes) 10.3 2.0-12.0 [facility] No[id number] 19:22:00 Test Item Value Reference Range Interpretation Comments Eosinophils (test code = 5.0 See_Comment [A utomated message] The Eosinophils) system which ge nerated this result tra nsmitted reference range : <=4.0. The reference r lance was not used to int erpret this result as normal/abnormal . [facility] NorthwestKkalhhqAUQDNNYGRW5415-80-20 19:22:00 Test Item Value Reference Range Interpretation Comments Basophils (test code = 0.4 See_Comment [Aut omated message] The Basophils) system which ge nerated this result tra nsmitted reference range : <=1.0. The reference r lance was not used to int erpret this result as normal/abnormal . [facility] NorthwestMyfviufRSPLGELAGA7338-88-97 19:22:00 Test Item Value Reference Range Interpretation Comments Lymphocytes (test code = Lymphocytes) 25.7 20.0-40.0 [facility] NorthwestCppjpfqOVGODDDAUJ3016-60-45 19:22:00 Test Item Value Reference Range Interpretation Comments Lymphocytes # (test code = Lymphocytes 2.0 1.0-5.5 #) [facility] NorthwestGrllsppRTMLHXTWAS3355-22-17 19:22:00 Test Item Value Reference Range Interpretation Comments Segs (test code = Segs) 58.6 45.0-75.0 [facility] NorthwestSxzpckrEPAHZZJYKA4556-64-86 19:22:00 Test Item Value Reference Range Interpretation Comments INR (test code = INR) 1.00 0.85-1.17 [facility] NorthwestDmwofojIOKHKHIPUW3203-93-52 19:22:00 Test Item Value Reference Range Interpretation Comments PT (test code = PT) 13.5 s 12.0-14.7 [facility] NorthwestWmbiqwbIFXIFYVZYL2262-81-35 19:22:00 Test Item Value Reference Range Interpretation Comments PTT (test code = PTT) 33.7 s 22.9-35.8 [facility] NorthwestCfjvsczZHKLIMGNHL8864-57-06 19:22:00 Test Item Value Reference Range Interpretation Comments Platelet (test code = Platelet) 170 133-450 [facility] NorthwestNqcrebgIHHPQZEATR3798-95-14 19:22:00 Test Item Value Reference Range Interpretation Comments WBC (test code = WBC) 7.8 3.7-10.4 [facility] NorthwestUsoywheANGEFUTPYK5770-58-60 19:22:00 Test Item Value Reference Range Interpretation Comments MCH (test code = MCH) 33.3 pg 27.0-31.0 [facility] NorthwestVvoibuzZLXSOVWMOK3267-73-69 19:22:00 Test Item Value Reference Range Interpretation Comments RBC (test code = RBC) 4.62 4.70-6.10 [facility] NorthwestMbbhpdqETZNMUEHUR3142-79-18 19:22:00 Test Item Value Reference Range Interpretation Comments MCV (test code = MCV) 97.4 80.0-94.0 [facility] NorthwestEgfezsfBWAPAILFZB5208-31-27 19:22:00 Test Item Value Reference Range Interpretation Comments Hgb (test code = Hgb) 15.4 14.0-18.0 [facility] NorthwestYoozhriLUVYKHNSHH9739-72-96 19:22:00 Test Item Value Reference Range Interpretation Comments Hct (test code = Hct) 45.0 42.0-54.0 [facility] NorthwestFhaqkypMDVGODASEL8545-80-78 19:22:00 Test Item Value Reference Range Interpretation Comments MCHC (test code = MCHC) 34.2 32.0-36.0 [facility]PzuebsiDWYOJASYQQ1690-71-91 19:22:00 Test Item Value Reference Range Interpretation Comments MPV (test code = MPV) 7.0 7.4-10.4 [facility] AustinGemlejuROKXNPHFPR7674-66-35 19:22:00 Test Item Value Reference Range Interpretation Comments RDW (test code = RDW) 16.0 11.5-14.5 [facility]2015-09-21 19:22:00 Test Item Value Reference Range Interpretation Comments CK MB Index (test 0.8 See_Comment [Automate d message] The code = CK MB Index) system [facility] generated this result transmit roseann reference range : <=2.5. The reference range was not used to interpr et this result as reggie l/abnormal. [facility]-21 19:22:00 Test Item Value Reference Range Interpretation Comments Troponin-I (test code no gt See_Comment [Auto mated message] The = Troponin-I) system which g enerated this result transmit roseann reference range : <=0.40. The reference r lance was not used to interpr et this result as reggie l/abnormal. [facility]2015-09-21 19:22:00 Test Item Value Reference Range Interpretation Comments Total CK (test code = Total CK) 111 12-191 [facility]2015-09-21 19:22:00 Test Item Value Reference Range Interpretation Comments CK MB (test code = CK MB) 0.9 0.5-3.6 [facility] [employer]2015-09-21 19:22:00 Test Item Value Reference Range Interpretation Comments eGFR (test code = eGFR) 70 [facility] [employer]2015-09-21 19:22:00 Test Item Value Reference Range Interpretation Comments Alk Phos (test code = Alk Phos) 87 39-136 [facility] [employer] [id number] 19:22:00 Test Item Value Reference Range Interpretation Comments AST (test code = AST) 23 See_Comment [Auto mated message] The system which ge nerated this result transmit roseann reference range : <=37. The reference range was not used to interpr et this result as reggie l/abnormal. [facility]2015-09-21 19:22:00 Test Item Value Reference Range Interpretation Comments ALT (test code = ALT) 27 See_Comment [Auto mated message] The system which ge nerated this result transmit roseann reference range : <=65. The reference range was not used to interpr et this result as reggie l/abnormal. [facility]2015-09-21 19:22:00 Test Item Value Reference Range Interpretation Comments Albumin Lvl (test code = Albumin Lvl) 3.4 3.5-5.0 [facility]2015-09-21 19:22:00 Test Item Value Reference Range Interpretation Comments Total Protein (test code = Total 7.7 6.4-8.4 Protein) [place] 267115-09-21 19:22:00 Test Item Value Reference Range Interpretation Comments A/G Ratio (test code = A/G Ratio) 0.8 0.7-1.6 [place] 267115-09-21 19:22:00 Test Item Value Reference Range Interpretation Comments Globulin (test code = Globulin) 4.3 2.0-4.0 [facility]2015-09-21 19:22:00 Test Item Value Reference Range Interpretation Comments B/C Ratio (test code = B/C Ratio) 6 6-25 [facility]2015-09-21 19:22:00 Test Item Value Reference Range Interpretation Comments AGAP (test code = AGAP) 11.8 10.0-20.0 [facility]2015-09-21 19:22:00 Test Item Value Reference Range Interpretation Comments Bili Total (test code = Bili Total) 0.4 0.2-1.3 [facility]2015-09-21 19:22:00 Test Item Value Reference Range Interpretation Comments Calcium Lvl (test code = Calcium Lvl) 9.2 8.5-10.5 [facility]2015-09-21 19:22:00 Test Item Value Reference Range Interpretation Comments CO2 (test code = CO2) 25 24-32 [place] 267115-09-21 19:22:00 Test Item Value Reference Range Interpretation Comments Glucose Lvl (test code = Glucose Lvl) 88 70-99 [facility]2015-09-21 19:22:00 Test Item Value Reference Range Interpretation Comments Chloride Lvl (test code = Chloride Lvl) 106 95-109 [facility]2015-09-21 19:22:00 Test Item Value Reference Range Interpretation Comments Potassium Lvl (test code = Potassium 4.8 3.5-5.1 Lvl) [facility]2015-09-21 19:22:00 Test Item Value Reference Range Interpretation Comments Sodium Lvl (test code = Sodium Lvl) 138 135-145 [facility]2015-09-21 19:22:00 Test Item Value Reference Range Interpretation Comments Creatinine Lvl (test code = Creatinine 1.2 0.5-1.4 Lvl) [facility]2015-09-21 19:22:00 Test Item Value Reference Range Interpretation Comments BUN (test code = BUN) 7 7-22 [facility]2015-09-21 19:22:00 Test Item Value Reference Range Interpretation Comments Magnesium Lvl (test code = Magnesium 2.0 1.8-2.4 Lvl) [facility] NorthwestGghusdkJTGPVUMXSQ6117-92-29 19:22:00 Test Item Value Reference Range Interpretation Comments Eosinophils # (test code 0.4 See_Comment [A utomated message] The = Eosinophils #) system ic h generated this result tra nsmitted reference range : <=0.5. The reference r lance was not used to int erpret this result as normal/abnormal . [facility] NorthwestQwoekryPMBRITFJYU7866-50-18 19:22:00 Test Item Value Reference Range Interpretation Comments Basophils # (test code 0.0 See_Comment [Aut omated message] The = Basophils #) system which generated this result tra nsmitted reference range : <=0.2. The reference r lance was not used to int erpret this result as normal/abnormal . [facility] NorthwestJjrkqqxMKXBSIQKNV9729-41-11 19:22:00 Test Item Value Reference Range Interpretation Comments Segs-Bands # (test code = Segs-Bands #) 4.6 1.5-8.1 [place] 868755-09-21 19:22:00 Test Item Value Reference Range Interpretation Comments Monocytes # (test code 0.8 See_Comment [Aut omated message] The = Monocytes #) system which generated this result tra nsmitted reference range : <=0.8. The reference r lance was not used to int erpret this result as normal/abnormal . [facility] NorthwestQiiwplyXMXCZUQIFU1123-72-70 19:22:00 Test Item Value Reference Range Interpretation Comments Monocytes (test code = Monocytes) 10.3 2.0-12.0 [facility] NorthwestPxljnphCJHTAKFHVV0328-94-52 19:22:00 Test Item Value Reference Range Interpretation Comments Eosinophils (test code = 5.0 See_Comment [A utomated message] The Eosinophils) system which ge nerated this result tra nsmitted reference range : <=4.0. The reference r lance was not used to int erpret this result as normal/abnormal . [facility] NorthwestKjvczylRDNZCWIARI5250-54-22 19:22:00 Test Item Value Reference Range Interpretation Comments Basophils (test code = 0.4 See_Comment [Aut omated message] The Basophils) system which ge nerated this result tra nsmitted reference range : <=1.0. The reference r lance was not used to int erpret this result as normal/abnormal . [facility] NorthwestNakqyhxJHFPDRKGTF9487-11-48 19:22:00 Test Item Value Reference Range Interpretation Comments Lymphocytes (test code = Lymphocytes) 25.7 20.0-40.0 [facility] NorthwestOpbiqbtNAIZSERLCN7245-13-02 19:22:00 Test Item Value Reference Range Interpretation Comments Lymphocytes # (test code = Lymphocytes 2.0 1.0-5.5 #) [facility] NorthwestOufcvmwDMZIYYLNRM6519-43-24 19:22:00 Test Item Value Reference Range Interpretation Comments Segs (test code = Segs) 58.6 45.0-75.0 [facility] NorthwestNmlqowwNCIJIUEYIU4568-51-64 19:22:00 Test Item Value Reference Range Interpretation Comments INR (test code = INR) 1.00 0.85-1.17 [facility] NorthwestSksovltIYKSUTYQOR4022-87-86 19:22:00 Test Item Value Reference Range Interpretation Comments PT (test code = PT) 13.5 s 12.0-14.7 [facility] NorthwestWzulwazGROURPVYPI2902-32-12 19:22:00 Test Item Value Reference Range Interpretation Comments PTT (test code = PTT) 33.7 s 22.9-35.8 [place] 868755-09-21 19:22:00 Test Item Value Reference Range Interpretation Comments Platelet (test code = Platelet) 170 133-450 [facility] NorthwestRakvahrTKFJHZBIEZ3857-23-33 19:22:00 Test Item Value Reference Range Interpretation Comments WBC (test code = WBC) 7.8 3.7-10.4 [facility] NorthwestArbefulACOFTCQVOP1484-58-38 19:22:00 Test Item Value Reference Range Interpretation Comments MCH (test code = MCH) 33.3 pg 27.0-31.0 [facility] NorthwestPhsyfvlQEZSWVXQTH7283-96-11 19:22:00 Test Item Value Reference Range Interpretation Comments RBC (test code = RBC) 4.62 4.70-6.10 [facility] NorthwestLdrzxbbNMXNTVPGCJ7306-30-77 19:22:00 Test Item Value Reference Range Interpretation Comments MCV (test code = MCV) 97.4 80.0-94.0 [facility] NorthwestAmbhpquQXXAQZLHMM7392-30-83 19:22:00 Test Item Value Reference Range Interpretation Comments Hgb (test code = Hgb) 15.4 14.0-18.0 [facility] NorthwestJuzgbbbQARIKZURHU1058-29-11 19:22:00 Test Item Value Reference Range Interpretation Comments Hct (test code = Hct) 45.0 42.0-54.0 [facility] NorthwestUoffkfuJBLMBOKTLV1416-77-56 19:22:00 Test Item Value Reference Range Interpretation Comments MCHC (test code = MCHC) 34.2 32.0-36.0 [facility] NorthwestHtmotlkDESHBHJDAI0815-19-07 19:22:00 Test Item Value Reference Range Interpretation Comments MPV (test code = MPV) 7.0 7.4-10.4 [facility] NorthwestZvfjjqdZQZTCVFIZE2505-01-37 19:22:00 Test Item Value Reference Range Interpretation Comments RDW (test code = RDW) 16.0 11.5-14.5 [id number]00 Test Item Value Reference Range Interpretation Comments U Cocaine Scr (test Negative *NA*(01/23/15 code = U Cocaine Scr) 3:10 PM) [facility] [id number] 20:10:00 Test Item Value Reference Range Interpretation Comments U Opiate Scr (test Negative *NA*(01/23/15 code = U Opiate Scr) 3:10 PM) [facility] [id number] 20:10:00 Test Item Value Reference Range Interpretation Comments U Cannab Scr (test Negative *NA*(01/23/15 code = U Cannab Scr) 3:10 PM) [facility] [id number] 20:10:00 Test Item Value Reference Range Interpretation Comments U Phencyc Scr (test Negative *NA*(01/23/15 code = U Phencyc Scr) 3:10 PM) [facility] [id number] 20:10:00 Test Item Value Reference Range Interpretation Comments UDS Note (test code = See Note (01/23/15 3:10 UDS Note) PM) [facility] [id number] 20:10:00 Test Item Value Reference Range Interpretation Comments U Shoshana Scr (test code Negative *NA*(01/23/15 = U Shoshana Scr) 3:10 PM) [facility] [id number] 20:10:00 Test Item Value Reference Range Interpretation Comments U Benzodia Scr (test Positive *ABN*(01/23/15 code = U Benzodia Scr) 3:10 PM[facility] [id number] 20:10:00 Test Item Value Reference Range Interpretation Comments U Amph Scr (test code Negative *NA*(01/23/15 = U Amph Scr) 3:10 PM) [facility] [id number] 20:10:00 Test Item Value Reference Range Interpretation Comments UA Urobilinogen (test code = UA <=1.0 mg/dL 0.1-1.0 Urobilinogen) [facility] [id number] 20:10:00 Test Item Value Reference Range Interpretation Comments UA Glucose (test code = UA Negative mg/dL Glucose) [facility] [id number] 20:10:00 Test Item Value Reference Range Interpretation Comments UA Sq Epi (test code = UA Sq Epi) Few /LPF [facility] [id number] 20:10:00 Test Item Value Reference Range Interpretation Comments UA Leuk Est (test Negative (01/23/15 3:10 code = UA Leuk Est) PM) [facility] [id number] 20:10:00 Test Item Value Reference Range Interpretation Comments UA Nitrite (test code Negative (01/23/15 3:10 = UA Nitrite) PM) [facility] AND [id number] 20:10:00 Test Item Value Reference Range Interpretation Comments UA Bacteria (test code = UA Occasional /HPF Bacteria) [facility] AND [id number] 20:10:00 Test Item Value Reference Range Interpretation Comments UA RBC (test code = 3 See_Comment [Automa roseann message] The UA RBC) system which ge nerated this result transmit roseann reference range : <=2. The reference range was not used to interpr et this result as reggie l/abnormal. [facility] AND [id number] 20:10:00 Test Item Value Reference Range Interpretation Comments UA WBC (test code = no gt See_Comment [Automa roseann message] The UA WBC) system which ge nerated this result transmit roseann reference range : <=5. The reference range was not used to interpr et this result as reggie l/abnormal. [facility] AND [id number] 20:10:00 Test Item Value Reference Range Interpretation Comments UA Hyal Cast (test 5 See_Comment [Automat ed message] The code = UA Hyal Cast) system which generated this result transmit roseann reference range : <=2. The reference range was not used to interpr et this result as reggie l/abnormal. [facility] AND [id number] 20:10:00 Test Item Value Reference Range Interpretation Comments UA Amorph Brisa (test code = Occasional /HPF UA Amorph Brisa) [facility] AND [id number] 20:10:00 Test Item Value Reference Range Interpretation Comments UA Mucus (test code = UA Mucus) Few /LPF [facility] AND [id number] 20:10:00 Test Item Value Reference Range Interpretation Comments UA Color (test code = Yellow *NA*(01/23/15 UA Color) 3:10 PM) [facility] AND [id number] 20:10:00 Test Item Value Reference Range Interpretation Comments UA Protein (test code = UA Protein) 200 mg/dL [facility] AND [id number] 20:10:00 Test Item Value Reference Range Interpretation Comments UA pH (test code = UA pH) 6.0 5.0-8.0 [facility] AND [id number] 20:10:00 Test Item Value Reference Range Interpretation Comments UA Spec Grav (test code = UA Spec Grav) 1.017 [facility] [id number] 20:10:00 Test Item Value Reference Range Interpretation Comments UA Turbidity (test code Slight *ABN*(01/23/15 = UA Turbidity) 3:10 PM) [facility] [id number] 20:10:00 Test Item Value Reference Range Interpretation Comments UA Blood (test code = Moderate *ABN*(01/23/15 UA Blood) 3:10 PM) [facility] [id number] 20:10:00 Test Item Value Reference Range Interpretation Comments UA Bili (test code = Negative *NA*(01/23/15 UA Bili) 3:10 PM) [facility] [id number] 20:10:00 Test Item Value Reference Range Interpretation Comments UA Ketones (test code = UA Trace mg/dL Ketones) [facility] [id number] 20:10:00 Test Item Value Reference Range Interpretation Comments UA Sperm (test code = UA Occasional /HPF Sperm) [facility] [id number] 20:10:00 Test Item Value Reference Range Interpretation Comments U Cocaine Scr (test Negative *NA*(01/23/15 code = U Cocaine Scr) 3:10 PM) [facility] [id number] 20:10:00 Test Item Value Reference Range Interpretation Comments U Opiate Scr (test Negative *NA*(01/23/15 code = U Opiate Scr) 3:10 PM) [facility] [id number] 20:10:00 Test Item Value Reference Range Interpretation Comments U Cannab Scr (test Negative *NA*(01/23/15 code = U Cannab Scr) 3:10 PM) [facility] [id number] 20:10:00 Test Item Value Reference Range Interpretation Comments U Phencyc Scr (test Negative *NA*(01/23/15 code = U Phencyc Scr) 3:10 PM) [facility] [id number] 20:10:00 Test Item Value Reference Range Interpretation Comments UDS Note (test code = See Note (01/23/15 3:10 UDS Note) PM) [facility] [id number] 20:10:00 Test Item Value Reference Range Interpretation Comments U Shoshana Scr (test code Negative *NA*(01/23/15 = U Shoshana Scr) 3:10 PM) [facility] [id number] 20:10:00 Test Item Value Reference Range Interpretation Comments U Benzodia Scr (test Positive *ABN*(01/23/15 code = U Benzodia Scr) 3:10 PM) [facility] [id number] 20:10:00 Test Item Value Reference Range Interpretation Comments U Amph Scr (test code Negative *NA*(01/23/15 = U Amph Scr) 3:10 PM) [facility] [id number] 20:10:00 Test Item Value Reference Range Interpretation Comments UA Urobilinogen (test code = UA <=1.0 mg/dL 0.1-1.0 Urobilinogen) [facility] AND [id number] 20:10:00 Test Item Value Reference Range Interpretation Comments UA Glucose (test code = UA Negative mg/dL Glucose) [facility] AND [id number] 20:10:00 Test Item Value Reference Range Interpretation Comments UA Sq Epi (test code = UA Sq Epi) Few /LPF [facility] AND [id number] 20:10:00 Test Item Value Reference Range Interpretation Comments UA Leuk Est (test Negative (01/23/15 3:10 code = UA Leuk Est) PM) [facility] AND [id number] 20:10:00 Test Item Value Reference Range Interpretation Comments UA Nitrite (test code Negative (01/23/15 3:10 = UA Nitrite) PM) [facility] [id number] 20:10:00 Test Item Value Reference Range Interpretation Comments UA Bacteria (test code = UA Occasional /HPF Bacteria) [facility] AND [id number] 20:10:00 Test Item Value Reference Range Interpretation Comments UA RBC (test code = 3 See_Comment [Automa roseann message] The UA RBC) system which ge nerated this result transmit roseann reference range : <=2. The reference range was not used to interpr et this result as reggie l/abnormal. [facility] AND [id number] 20:10:00 Test Item Value Reference Range Interpretation Comments UA WBC (test code = no gt See_Comment [Automa roseann message] The UA WBC) system which ge nerated this result transmit roseann reference range : <=5. The reference range was not used to interpr et this result as reggie l/abnormal. [facility] AND [id number] 20:10:00 Test Item Value Reference Range Interpretation Comments UA Hyal Cast (test 5 See_Comment [Automat ed message] The code = UA Hyal Cast) system which generated this result transmit roseann reference range : <=2. The reference range was not used to interpr et this result as reggie l/abnormal. [facility] AND [id number] 20:10:00 Test Item Value Reference Range Interpretation Comments UA Amorph Brisa (test code = Occasional /HPF UA Amorph Brisa) [facility] AND [id number] 20:10:00 Test Item Value Reference Range Interpretation Comments UA Mucus (test code = UA Mucus) Few /LPF [facility] AND [id number] 20:10:00 Test Item Value Reference Range Interpretation Comments UA Color (test code = Yellow *NA*(01/23/15 UA Color) 3:10 PM) [facility] AND [id number] 20:10:00 Test Item Value Reference Range Interpretation Comments UA Protein (test code = UA Protein) 200 mg/dL [facility] AND [id number] 20:10:00 Test Item Value Reference Range Interpretation Comments UA pH (test code = UA pH) 6.0 5.0-8.0 [facility] AND [id number] 20:10:00 Test Item Value Reference Range Interpretation Comments UA Spec Grav (test code = UA Spec Grav) 1.017 [facility] AND [id number] 20:10:00 Test Item Value Reference Range Interpretation Comments UA Turbidity (test code Slight *ABN*(01/23/15 = UA Turbidity) 3:10 PM) [facility] AND [id number] 20:10:00 Test Item Value Reference Range Interpretation Comments UA Blood (test code = Moderate *ABN*(01/23/15 UA Blood) 3:10 PM) [facility] AND [id number] 20:10:00 Test Item Value Reference Range Interpretation Comments UA Bili (test code = Negative *NA*(01/23/15 UA Bili) 3:10 PM) [facility] [id number] 20:10:00 Test Item Value Reference Range Interpretation Comments UA Ketones (test code = UA Trace mg/dL Ketones) [facility] [id number] 20:10:00 Test Item Value Reference Range Interpretation Comments UA Sperm (test code = UA Occasional /HPF Sperm) [facility] [id number] 19:55:00 Test Item Value Reference Range Interpretation Comments CK MB Index (test 0.7 See_Comment [Automate d message] The code = CK MB Index) system w [employer] generated this result transmit roseann reference range : <=2.5. The reference range was not used to interpr et this result as reggie l/abnormal. [facility]2015-08-29 19:55:00 Test Item Value Reference Range Interpretation Comments Troponin-I (test code no gt See_Comment [Auto mated message] The = Troponin-I) system which g enerated this result transmit roseann reference range : <=0.40. The reference r lance was not used to interpr et this result as reggie l/abnormal. [facility] [employer] [id number] 19:55:00 Test Item Value Reference Range Interpretation Comments Total CK (test code = Total CK) 170 12-191 [facility] [employer] [id number] 19:55:00 Test Item Value Reference Range Interpretation Comments CK MB (test code = CK MB) 1.2 0.5-3.6 [facility] [employer] [id number] 19:55:00 Test Item Value Reference Range Interpretation Comments eGFR (test code = eGFR) 54 [facility] [employer] [id number] 19:55:00 Test Item Value Reference Range Interpretation Comments A/G Ratio (test code = A/G Ratio) 1.0 0.7-1.6 [facility] [employer] [id number] 19:55:00 Test Item Value Reference Range Interpretation Comments AST (test code = AST) 23 See_Comment [Auto mated message] The system which ge nerated this result transmit roseann reference range : <=37. The reference range was not used to interpr et this result as reggie l/abnormal. [facility] [id number] 19:55:00 Test Item Value Reference Range Interpretation Comments Albumin Lvl (test code = Albumin Lvl) 4.3 3.5-5.0 [facility]2015-08-29 19:55:00 Test Item Value Reference Range Interpretation Comments ALT (test code = ALT) 39 See_Comment [Auto mated message] The system which ge nerated this result transmit roseann reference range : <=65. The reference range was not used to interpr et this result as reggie l/abnormal. [facility]2015-08-29 19:55:00 Test Item Value Reference Range Interpretation Comments Total Protein (test code = Total 8.8 6.4-8.4 Protein) [facility]2015-08-29 19:55:00 Test Item Value Reference Range Interpretation Comments Calcium Lvl (test code = Calcium Lvl) 9.3 8.5-10.5 [facility]2015-08-29 19:55:00 Test Item Value Reference Range Interpretation Comments AGAP (test code = AGAP) 20.5 10.0-20.0 [facility]2015-08-29 19:55:00 Test Item Value Reference Range Interpretation Comments Globulin (test code = Globulin) 4.5 2.0-4.0 [facility]2015-08-29 19:55:00 Test Item Value Reference Range Interpretation Comments B/C Ratio (test code = B/C Ratio) 10 6-25 [facility] [id number] 19:55:00 Test Item Value Reference Range Interpretation Comments Bili Total (test code = Bili Total) 0.5 0.2-1.3 [facility] [id number] 19:55:00 Test Item Value Reference Range Interpretation Comments Alk Phos (test code = Alk Phos) 88 39-136 [facility]2015-08-29 19:55:00 Test Item Value Reference Range Interpretation Comments Potassium Lvl (test code = Potassium 4.5 3.5-5.1 Lvl) [facility]2015-08-29 19:55:00 Test Item Value Reference Range Interpretation Comments Sodium Lvl (test code = Sodium Lvl) 139 135-145 [facility]2015-08-29 19:55:00 Test Item Value Reference Range Interpretation Comments CO2 (test code = CO2) 17 24-32 [facility]2015-08-29 19:55:00 Test Item Value Reference Range Interpretation Comments Chloride Lvl (test code = Chloride Lvl) 106 95-109 [facility]2015-08-29 19:55:00 Test Item Value Reference Range Interpretation Comments Glucose Lvl (test code = Glucose Lvl) 114 70-99 [facility]2015-08-29 19:55:00 Test Item Value Reference Range Interpretation Comments Creatinine Lvl (test code = Creatinine 1.5 0.5-1.4 Lvl) [facility]2015-08-29 19:55:00 Test Item Value Reference Range Interpretation Comments BUN (test code = BUN) 15 7-22 [facility] NorthwestWvgpxcfTNFCJKSYDX3374-03-83 19:55:00 Test Item Value Reference Range Interpretation Comments Segs (test code = Segs) 89.7 45.0-75.0 [facility] NorthwestNgrgnegWTVONXKSDF2798-27-60 19:55:00 Test Item Value Reference Range Interpretation Comments Segs-Bands # (test code = Segs-Bands #) 11.6 1.5-8.1 [facility] NorthwestLsmfzkoFGXSJZEEKO8497-38-13 19:55:00 Test Item Value Reference Range Interpretation Comments Lymphocytes # (test code = Lymphocytes 0.8 1.0-5.5 #) [facility] NorthwestCwyhafiMORGXRUUYI8874-34-01 19:55:00 Test Item Value Reference Range Interpretation Comments Lymphocytes (test code = Lymphocytes) 6.5 20.0-40.0 [facility] NorthwestWyrwvqbYRVKTEUQYM7954-50-89 19:55:00 Test Item Value Reference Range Interpretation Comments Monocytes (test code = Monocytes) 3.2 2.0-12.0 [facility] NorthwestNrrztchHBLFGHZGIW5965-27-51 19:55:00 Test Item Value Reference Range Interpretation Comments Monocytes # (test code 0.4 See_Comment [Aut omated message] The = Monocytes #) system which generated this result tra nsmitted reference range : <=0.8. The reference r lance was not used to int erpret this result as normal/abnormal . [place] [id number] 19:55:00 Test Item Value Reference Range Interpretation Comments Eosinophils # (test code 0.0 See_Comment [A utomated message] The = Eosinophils #) system whic h generated this result tra nsmitted reference range : <=0.5. The reference r lance was not used to int erpret this result as normal/abnormal . [facility] NorthwestSrrgaeaOBYMMDOGGW8346-10-60 19:55:00 Test Item Value Reference Range Interpretation Comments Basophils # (test code 0.1 See_Comment [Aut omated message] The = Basophils #) system which generated this result tra nsmitted reference range : <=0.2. The reference r lance was not used to int erpret this result as normal/abnormal . [facility] NorthwestHbzwhwaHCGVMADEVH1237-14-48 19:55:00 Test Item Value Reference Range Interpretation Comments Eosinophils (test code = 0.2 See_Comment [A utomated message] The Eosinophils) system which ge nerated this result tra nsmitted reference range : <=4.0. The reference r lance was not used to int erpret this result as normal/abnormal . [facility] NorthwestFceodruOEFYQHHUAE9949-89-61 19:55:00 Test Item Value Reference Range Interpretation Comments Basophils (test code = 0.4 See_Comment [Aut omated message] The Basophils) system which ge nerated this result tra nsmitted reference range : <=1.0. The reference r lance was not used to int erpret this result as normal/abnormal . [facility] NorthwestAeskklnORGVEYIPFI2249-30-44 19:55:00 Test Item Value Reference Range Interpretation Comments PT (test code = PT) 14.2 s 12.0-14.7 [facility] NorthwestFbxtvgmKFWFFATVHS7264-26-98 19:55:00 Test Item Value Reference Range Interpretation Comments INR (test code = INR) 1.07 0.85-1.17 [facility] NorthwestHvgcttePRJZQWTXOI3810-62-72 19:55:00 Test Item Value Reference Range Interpretation Comments PTT (test code = PTT) 31.2 s 22.9-35.8 [facility] NorthwestYgwlctgRTDRPXQWRG5121-18-69 19:55:00 Test Item Value Reference Range Interpretation Comments MPV (test code = MPV) 8.3 7.4-10.4 [facility] NorthwestKtvcyodOADLYFQFMP8753-90-12 19:55:00 Test Item Value Reference Range Interpretation Comments MCHC (test code = MCHC) 32.8 32.0-36.0 [facility]JvvxvacRRGNXTBIBT6738-93-69 19:55:00 Test Item Value Reference Range Interpretation Comments RDW (test code = RDW) 17.0 11.5-14.5 [facility]fsdgumHBTYDBYLAW6295-91-70 19:55:00 Test Item Value Reference Range Interpretation Comments Platelet (test code = Platelet) 202 133-450 [facility] HospitalGecduinSZHYLHRNTQ8093-97-63 19:55:00 Test Item Value Reference Range Interpretation Comments Hct (test code = Hct) 51.7 42.0-54.0 [facility] AustinUqhatomYIVGONBVTG1103-84-10 19:55:00 Test Item Value Reference Range Interpretation Comments MCV (test code = MCV) 97.9 80.0-94.0 [facility] HospitalXtrornpIUZMHLCJRF5098-53-95 19:55:00 Test Item Value Reference Range Interpretation Comments MCH (test code = MCH) 32.1 pg 27.0-31.0 [facility] HospitalBwbkjwkVQNOPEKCDU0436-58-44 19:55:00 Test Item Value Reference Range Interpretation Comments Hgb (test code = Hgb) 17.0 14.0-18.0 [facility] AustinYdpnzhcZXGXISZMAV6027-26-15 19:55:00 Test Item Value Reference Range Interpretation Comments WBC (test code = WBC) 12.9 3.7-10.4 [facility] HospitalWkgjmcwBUHAVBMPHU3716-64-09 19:55:00 Test Item Value Reference Range Interpretation Comments RBC (test code = RBC) 5.28 4.70-6.10 [facility]AxrpltkLJCVQGLUTI2112-87-93 19:55:00 Test Item Value Reference Range Interpretation Comments Etoh (%) (test code = Etoh (%)) no gt [facility] AustinLpdofjyKYLNJCBLBB2020-23-90 19:55:00 Test Item Value Reference Range Interpretation Comments Ethanol Lvl (test code = Ethanol Lvl) no gt [facility] AustinannCARDIAC [id number] 19:55:00 Test Item Value Reference Range Interpretation Comments CK MB Index (test 0.7 See_Comment [Automate d message] The code = CK MB Index) system [facility] generated this result transmit roseann reference range : <=2.5. The reference range was not used to interpr et this result as reggie l/abnormal. [facility] [employer] [id number] 19:55:00 Test Item Value Reference Range Interpretation Comments Troponin-I (test code no gt See_Comment [Auto mated message] The = Troponin-I) system which g enerated this result transmit roseann reference range : <=0.40. The reference r lance was not used to interpr et this result as reggie l/abnormal. [facility] [employer] [id number] 19:55:00 Test Item Value Reference Range Interpretation Comments Total CK (test code = Total CK) 170 12-191 [facility] [employer] [id number] 19:55:00 Test Item Value Reference Range Interpretation Comments CK MB (test code = CK MB) 1.2 0.5-3.6 [facility] [employer] [id number] 19:55:00 Test Item Value Reference Range Interpretation Comments eGFR (test code = eGFR) 54 [facility] [employer] [id number] 19:55:00 Test Item Value Reference Range Interpretation Comments A/G Ratio (test code = A/G Ratio) 1.0 0.7-1.6 [facility] [employer] [id number] 19:55:00 Test Item Value Reference Range Interpretation Comments AST (test code = AST) 23 See_Comment [Auto mated message] The system which ge nerated this result transmit roseann reference range : <=37. The reference range was not used to interpr et this result as reggie l/abnormal. [facility] [employer] [id number] 19:55:00 Test Item Value Reference Range Interpretation Comments Albumin Lvl (test code = Albumin Lvl) 4.3 3.5-5.0 [facility] [employer] [id number] 19:55:00 Test Item Value Reference Range Interpretation Comments ALT (test code = ALT) 39 See_Comment [Auto mated message] The system which ge nerated this result transmit roseann reference range : <=65. The reference range was not used to interpr et this result as reggie l/abnormal. [facility] [employer] [id number] 19:55:00 Test Item Value Reference Range Interpretation Comments Total Protein (test code = Total 8.8 6.4-8.4 Protein) [facility]2015-08-29 19:55:00 Test Item Value Reference Range Interpretation Comments Calcium Lvl (test code = Calcium Lvl) 9.3 8.5-10.5 [facility]2015-08-29 19:55:00 Test Item Value Reference Range Interpretation Comments AGAP (test code = AGAP) 20.5 10.0-20.0 [facility]2015-08-29 19:55:00 Test Item Value Reference Range Interpretation Comments Globulin (test code = Globulin) 4.5 2.0-4.0 [facility]2015-08-29 19:55:00 Test Item Value Reference Range Interpretation Comments B/C Ratio (test code = B/C Ratio) 10 6-25 [facility]2015-08-29 19:55:00 Test Item Value Reference Range Interpretation Comments Bili Total (test code = Bili Total) 0.5 0.2-1.3 [facility]2015-08-29 19:55:00 Test Item Value Reference Range Interpretation Comments Alk Phos (test code = Alk Phos) 88 39-136 [facility]2015-08-29 19:55:00 Test Item Value Reference Range Interpretation Comments Potassium Lvl (test code = Potassium 4.5 3.5-5.1 Lvl) [facility]2015-08-29 19:55:00 Test Item Value Reference Range Interpretation Comments Sodium Lvl (test code = Sodium Lvl) 139 135-145 [facility]2015-08-29 19:55:00 Test Item Value Reference Range Interpretation Comments CO2 (test code = CO2) 17 24-32 [facility]2015-08-29 19:55:00 Test Item Value Reference Range Interpretation Comments Chloride Lvl (test code = Chloride Lvl) 106 95-109 [facility]2015-08-29 19:55:00 Test Item Value Reference Range Interpretation Comments Glucose Lvl (test code = Glucose Lvl) 114 70-99 [facility]2015-08-29 19:55:00 Test Item Value Reference Range Interpretation Comments Creatinine Lvl (test code = Creatinine 1.5 0.5-1.4 Lvl) [facility]2015-08-29 19:55:00 Test Item Value Reference Range Interpretation Comments BUN (test code = BUN) 15 7-22 [facility] NorthwestQcpjgafTHCDNHUZPN3375-65-68 19:55:00 Test Item Value Reference Range Interpretation Comments Segs (test code = Segs) 89.7 45.0-75.0 [facility] NorthwestBxdsuvzUUZHWCUHQZ7842-26-92 19:55:00 Test Item Value Reference Range Interpretation Comments Segs-Bands # (test code = Segs-Bands #) 11.6 1.5-8.1 [facility] NorthwestEdsxtoeKIUAUMKALU8816-55-13 19:55:00 Test Item Value Reference Range Interpretation Comments Lymphocytes # (test code = Lymphocytes 0.8 1.0-5.5 #) [facility] NorthwestRrkrmdqDTMMGMOOIH8101-78-58 19:55:00 Test Item Value Reference Range Interpretation Comments Lymphocytes (test code = Lymphocytes) 6.5 20.0-40.0 [facility] NorthwestAlkxomvHCTWVRXFLV2132-96-14 19:55:00 Test Item Value Reference Range Interpretation Comments Monocytes (test code = Monocytes) 3.2 2.0-12.0 [facility] NorthwestWjtgwzuERUZHPLBJZ4295-55-63 19:55:00 Test Item Value Reference Range Interpretation Comments Monocytes # (test code 0.4 See_Comment [Aut omated message] The = Monocytes #) system which generated this result tra nsmitted reference range : <=0.8. The reference r lance was not used to int erpret this result as normal/abnormal . [facility] NorthwestActxsrnHOCIHBBKCQ0693-70-64 19:55:00 Test Item Value Reference Range Interpretation Comments Eosinophils # (test code 0.0 See_Comment [A utomated message] The = Eosinophils #) system ic h generated this result tra nsmitted reference range : <=0.5. The reference r lance was not used to int erpret this result as normal/abnormal . [facility] NorthwestWqieqokSANILZMQCZ6284-72-14 19:55:00 Test Item Value Reference Range Interpretation Comments Basophils # (test code 0.1 See_Comment [Aut omated message] The = Basophils #) system which generated this result tra nsmitted reference range : <=0.2. The reference r lance was not used to int erpret this result as normal/abnormal . [facility] NorthwestQbzpzuzJKSZSAPNXZ6117-60-19 19:55:00 Test Item Value Reference Range Interpretation Comments Eosinophils (test code = 0.2 See_Comment [A utomated message] The Eosinophils) system which ge nerated this result tra nsmitted reference range : <=4.0. The reference r lance was not used to int erpret this result as normal/abnormal . [facility] NorthwestOxujjssWSKUFACTCS8222-54-09 19:55:00 Test Item Value Reference Range Interpretation Comments Basophils (test code = 0.4 See_Comment [Aut omated message] The Basophils) system which ge nerated this result tra nsmitted reference range : <=1.0. The reference r lance was not used to int erpret this result as normal/abnormal . [facility] NorthwestZrwymzeNOIRMIJJAQ5158-51-92 19:55:00 Test Item Value Reference Range Interpretation Comments PT (test code = PT) 14.2 s 12.0-14.7 [facility] NorthwestHmrhgqvJARUULTFTP4605-51-45 19:55:00 Test Item Value Reference Range Interpretation Comments INR (test code = INR) 1.07 0.85-1.17 [facility] NorthwestSesdnyyPVPAKARXXV8089-31-19 19:55:00 Test Item Value Reference Range Interpretation Comments PTT (test code = PTT) 31.2 s 22.9-35.8 [facility] NorthwestYoriqtzEOYHNQOFMV6751-64-28 19:55:00 Test Item Value Reference Range Interpretation Comments MPV (test code = MPV) 8.3 7.4-10.4 [facility] NorthwestAfegbskUWOYYDCJNQ7760-59-62 19:55:00 Test Item Value Reference Range Interpretation Comments MCHC (test code = MCHC) 32.8 32.0-36.0 [facility] NorthwestOpfcwmeFOZMWTPXSE3313-79-84 19:55:00 Test Item Value Reference Range Interpretation Comments RDW (test code = RDW) 17.0 11.5-14.5 [facility] NorthwestCvyfsaqGDDVLKKIRC5905-97-12 19:55:00 Test Item Value Reference Range Interpretation Comments Platelet (test code = Platelet) 202 133-450 [facility] NorthwestDnkxsghWBFVPMFTBZ4034-86-65 19:55:00 Test Item Value Reference Range Interpretation Comments Hct (test code = Hct) 51.7 42.0-54.0 [facility] NorthwestYaylsfxFBYPXTCFYU7122-26-71 19:55:00 Test Item Value Reference Range Interpretation Comments MCV (test code = MCV) 97.9 80.0-94.0 [facility] NorthwestWwjdcfnSORMHIIGZV4039-53-10 19:55:00 Test Item Value Reference Range Interpretation Comments MCH (test code = MCH) 32.1 pg 27.0-31.0 [facility] NorthwestFgbfhvvINLAYBYXFX3053-97-83 19:55:00 Test Item Value Reference Range Interpretation Comments Hgb (test code = Hgb) 17.0 14.0-18.0 [facility] NorthwestDwaeocdQOFBEVODRY7357-04-71 19:55:00 Test Item Value Reference Range Interpretation Comments WBC (test code = WBC) 12.9 3.7-10.4 [facility] NorthwestJotfevpJQUSHUTWFA6002-05-77 19:55:00 Test Item Value Reference Range Interpretation Comments RBC (test code = RBC) 5.28 4.70-6.10 [place] [id number] 19:55:00 Test Item Value Reference Range Interpretation Comments Etoh (%) (test code = Etoh (%)) no gt [place] [id number] 19:55:00 Test Item Value Reference Range Interpretation Comments Ethanol Lvl (test code = Ethanol Lvl) no gt [facility]2014-06-26 17:07:00 Test Item Value Reference Range Interpretation Comments eGFR (test code = eGFR) 71 [facility]2014-06-26 17:07:00 Test Item Value Reference Range Interpretation Comments Bili Total (test code = Bili Total) 0.3 0.2-1.3 [facility]2014-06-26 17:07:00 Test Item Value Reference Range Interpretation Comments AST (test code = AST) 18 See_Comment [Auto mated message] The system which ge nerated this result transmit roseann reference range : <=37. The reference range was not used to interpr et this result as reggie l/abnormal. [facility] [id number] 17:07:00 Test Item Value Reference Range Interpretation Comments Alk Phos (test code = Alk Phos) 88 39-136 [facility]2014-06-26 17:07:00 Test Item Value Reference Range Interpretation Comments ALT (test code = ALT) 36 See_Comment [Auto mated message] The system which ge nerated this result transmit roseann reference range : <=65. The reference range was not used to interpr et this result as reggie l/abnormal. [facility]2014-06-26 17:07:00 Test Item Value Reference Range Interpretation Comments Albumin Lvl (test code = Albumin Lvl) 4.0 3.5-5.0 [facility]2014-06-26 17:07:00 Test Item Value Reference Range Interpretation Comments Total Protein (test code = Total 8.8 6.4-8.4 Protein) [facility]2014-06-26 17:07:00 Test Item Value Reference Range Interpretation Comments CO2 (test code = CO2) 22 24-32 [facility]2014-06-26 17:07:00 Test Item Value Reference Range Interpretation Comments Calcium Lvl (test code = Calcium Lvl) 9.5 8.5-10.5 [facility]2014-06-26 17:07:00 Test Item Value Reference Range Interpretation Comments Chloride Lvl (test code = Chloride Lvl) 103 95-109 [facility]2014-06-26 17:07:00 Test Item Value Reference Range Interpretation Comments Sodium Lvl (test code = Sodium Lvl) 135 135-145 [facility]2014-06-26 17:07:00 Test Item Value Reference Range Interpretation Comments Potassium Lvl (test code = Potassium 4.2 3.5-5.1 Lvl) [facility]2014-06-26 17:07:00 Test Item Value Reference Range Interpretation Comments Creatinine Lvl (test code = Creatinine 1.2 0.5-1.4 Lvl) [facility]2014-06-26 17:07:00 Test Item Value Reference Range Interpretation Comments Glucose Lvl (test code = Glucose Lvl) 110 70-99 [facility]2014-06-26 17:07:00 Test Item Value Reference Range Interpretation Comments BUN (test code = BUN) 7 7-22 [facility]2014-06-26 17:07:00 Test Item Value Reference Range Interpretation Comments Globulin (test code = Globulin) 4.8 2.0-4.0 [facility]2014-06-26 17:07:00 Test Item Value Reference Range Interpretation Comments A/G Ratio (test code = A/G Ratio) 0.8 0.7-1.6 [facility]2014-06-26 17:07:00 Test Item Value Reference Range Interpretation Comments B/C Ratio (test code = B/C Ratio) 6 6-25 [facility]2014-06-26 17:07:00 Test Item Value Reference Range Interpretation Comments AGAP (test code = AGAP) 14.2 10.0-20.0 [facility] NorthwestNhuehflCYCGQRKSJA5152-71-67 17:07:00 Test Item Value Reference Range Interpretation Comments Eosinophils (test code = 3.2 See_Comment [A utomated message] The Eosinophils) system which ge nerated this result tra nsmitted reference range : <=4.0. The reference r lance was not used to int erpret this result as normal/abnormal . [facility] NorthwestItfbstwBALDWDKCJE4879-46-96 17:07:00 Test Item Value Reference Range Interpretation Comments Lymphocytes (test code = Lymphocytes) 16.7 20.0-40.0 [facility] NorthwestOemrxypODCCPCJMDJ7027-20-94 17:07:00 Test Item Value Reference Range Interpretation Comments Monocytes (test code = Monocytes) 6.2 2.0-12.0 [facility] NorthwestFoixwgoQBAWPQZLSQ1863-88-88 17:07:00 Test Item Value Reference Range Interpretation Comments Segs (test code = Segs) 73.3 45.0-75.0 [facility] NorthwestWgvhsjcTRXVCIPTEG7213-85-42 17:07:00 Test Item Value Reference Range Interpretation Comments Basophils (test code = 0.6 See_Comment [Aut omated message] The Basophils) system which ge nerated this result tra nsmitted reference range : <=1.0. The reference r lance was not used to int erpret this result as normal/abnormal . [facility] NorthwestBnpgyysVPJMDYEFXI2357-81-60 17:07:00 Test Item Value Reference Range Interpretation Comments Basophils # (test code 0.1 See_Comment [Aut omated message] The = Basophils #) system which generated this result tra nsmitted reference range : <=0.2. The reference r lance was not used to int erpret this result as normal/abnormal . [facility] NorthwestCvfqvjyRHCTOWMFYU6443-76-12 17:07:00 Test Item Value Reference Range Interpretation Comments Eosinophils # (test code 0.3 See_Comment [A utomated message] The = Eosinophils #) system [facility] h generated this result tra nsmitted reference range : <=0.5. The reference r lance was not used to int erpret this result as normal/abnormal . [facility] NorthwestDelwxcoTXSGWTDSCL2317-74-47 17:07:00 Test Item Value Reference Range Interpretation Comments Monocytes # (test code 0.6 See_Comment [Aut omated message] The = Monocytes #) system which generated this result tra nsmitted reference range : <=0.8. The reference r lance was not used to int erpret this result as normal/abnormal . [facility] NorthwestPxhrimmIMCDFSNVAX3441-31-82 17:07:00 Test Item Value Reference Range Interpretation Comments Lymphocytes # (test code = Lymphocytes 1.6 1.0-5.5 #) [facility] NorthwestTtvqsugAAMSVTOVOC7266-89-08 17:07:00 Test Item Value Reference Range Interpretation Comments Segs-Bands # (test code = Segs-Bands #) 6.8 1.5-8.1 [facility] NorthwestDkutmeoDYXTAQYZEN4547-58-25 17:07:00 Test Item Value Reference Range Interpretation Comments Platelet (test code = Platelet) 170 133-450 [facility] NorthwestZropwqnXVKTMSYZAE6535-25-42 17:07:00 Test Item Value Reference Range Interpretation Comments MPV (test code = MPV) 7.6 7.4-10.4 [facility] NorthwestSgmvokkXRZOAVXEPY7422-99-65 17:07:00 Test Item Value Reference Range Interpretation Comments MCHC (test code = MCHC) 33.8 32.0-36.0 [facility] NorthwestKuagoboXFQBJWWBGA7271-51-28 17:07:00 Test Item Value Reference Range Interpretation Comments RDW (test code = RDW) 14.2 11.5-14.5 [facility] NorthwestTlyrmyzZDPVDDOWLO8945-07-02 17:07:00 Test Item Value Reference Range Interpretation Comments MCH (test code = MCH) 33.1 pg 27.0-31.0 [facility] NorthwestNhgoudnVWGDJNDLSL4084-51-80 17:07:00 Test Item Value Reference Range Interpretation Comments MCV (test code = MCV) 97.9 80.0-94.0 [facility] NorthwestQtwtguwYNXBUDZJXE8681-16-97 17:07:00 Test Item Value Reference Range Interpretation Comments Hgb (test code = Hgb) 14.2 14.0-18.0 [facility] NorthwestThvxxvwVEYGEVBGTS4651-12-54 17:07:00 Test Item Value Reference Range Interpretation Comments Hct (test code = Hct) 42.1 42.0-54.0 [facility] NorthwestIinugqhUITIBTYQAO7000-57-05 17:07:00 Test Item Value Reference Range Interpretation Comments WBC (test code = WBC) 9.3 3.7-10.4 [facility] NorthwestOnriskzRDEAGBUFHR3286-05-32 17:07:00 Test Item Value Reference Range Interpretation Comments RBC (test code = RBC) 4.30 4.70-6.10 [place] 18453014-06-26 17:07:00 Test Item Value Reference Range Interpretation Comments Vanco Tr TND (test code = Vanco Tr unknown TND) [place] 565204-06-26 17:07:00 Test Item Value Reference Range Interpretation Comments Vanco Tr (test code = Vanco Tr) 7.7 [facility]2014-06-26 17:07:00 Test Item Value Reference Range Interpretation Comments eGFR (test code = eGFR) 71 [facility]2014-06-26 17:07:00 Test Item Value Reference Range Interpretation Comments Bili Total (test code = Bili Total) 0.3 0.2-1.3 [facility]2014-06-26 17:07:00 Test Item Value Reference Range Interpretation Comments AST (test code = AST) 18 See_Comment [Auto mated message] The system which ge nerated this result transmit roseann reference range : <=37. The reference range was not used to interpr et this result as reggie l/abnormal. [facility]2014-06-26 17:07:00 Test Item Value Reference Range Interpretation Comments Alk Phos (test code = Alk Phos) 88 39-136 [facility]2014-06-26 17:07:00 Test Item Value Reference Range Interpretation Comments ALT (test code = ALT) 36 See_Comment [Auto mated message] The system which ge nerated this result transmit roseann reference range : <=65. The reference range was not used to interpr et this result as reggie l/abnormal. [facility]2014-06-26 17:07:00 Test Item Value Reference Range Interpretation Comments Albumin Lvl (test code = Albumin Lvl) 4.0 3.5-5.0 [facility]2014-06-26 17:07:00 Test Item Value Reference Range Interpretation Comments Total Protein (test code = Total 8.8 6.4-8.4 Protein) [facility]2014-06-26 17:07:00 Test Item Value Reference Range Interpretation Comments CO2 (test code = CO2) 22 24-32 [facility]2014-06-26 17:07:00 Test Item Value Reference Range Interpretation Comments Calcium Lvl (test code = Calcium Lvl) 9.5 8.5-10.5 [facility]2014-06-26 17:07:00 Test Item Value Reference Range Interpretation Comments Chloride Lvl (test code = Chloride Lvl) 103 95-109 [facility]2014-06-26 17:07:00 Test Item Value Reference Range Interpretation Comments Sodium Lvl (test code = Sodium Lvl) 135 135-145 [facility]2014-06-26 17:07:00 Test Item Value Reference Range Interpretation Comments Potassium Lvl (test code = Potassium 4.2 3.5-5.1 Lvl) [facility]2014-06-26 17:07:00 Test Item Value Reference Range Interpretation Comments Creatinine Lvl (test code = Creatinine 1.2 0.5-1.4 Lvl) [facility]2014-06-26 17:07:00 Test Item Value Reference Range Interpretation Comments Glucose Lvl (test code = Glucose Lvl) 110 70-99 [facility]2014-06-26 17:07:00 Test Item Value Reference Range Interpretation Comments BUN (test code = BUN) 7 7-22 [facility]2014-06-26 17:07:00 Test Item Value Reference Range Interpretation Comments Globulin (test code = Globulin) 4.8 2.0-4.0 [facility]2014-06-26 17:07:00 Test Item Value Reference Range Interpretation Comments A/G Ratio (test code = A/G Ratio) 0.8 0.7-1.6 [facility]2014-06-26 17:07:00 Test Item Value Reference Range Interpretation Comments B/C Ratio (test code = B/C Ratio) 6 6-25 [facility]2014-06-26 17:07:00 Test Item Value Reference Range Interpretation Comments AGAP (test code = AGAP) 14.2 10.0-20.0 [facility] NorthwestVpypzqzZUAWMOJQUR6341-99-95 17:07:00 Test Item Value Reference Range Interpretation Comments Eosinophils (test code = 3.2 See_Comment [A utomated message] The Eosinophils) system which ge nerated this result tra nsmitted reference range : <=4.0. The reference r lance was not used to int erpret this result as normal/abnormal . [facility] NorthwestGgpuidlPOOEZLVKYC1561-54-91 17:07:00 Test Item Value Reference Range Interpretation Comments Lymphocytes (test code = Lymphocytes) 16.7 20.0-40.0 [facility] NorthwestKahkupeVHKGFHLCUJ5775-45-47 17:07:00 Test Item Value Reference Range Interpretation Comments Monocytes (test code = Monocytes) 6.2 2.0-12.0 [facility] NorthwestFtqzmxkQLEGBMTCHY7605-63-00 17:07:00 Test Item Value Reference Range Interpretation Comments Segs (test code = Segs) 73.3 45.0-75.0 [facility] NorthwestBwtoyzbNCVPDLWWAQ1521-42-05 17:07:00 Test Item Value Reference Range Interpretation Comments Basophils (test code = 0.6 See_Comment [Aut omated message] The Basophils) system which ge nerated this result tra nsmitted reference range : <=1.0. The reference r lance was not used to int erpret this result as normal/abnormal . [facility] NorthwestDllfollMLNMJHUGNM7328-33-99 17:07:00 Test Item Value Reference Range Interpretation Comments Basophils # (test code 0.1 See_Comment [Aut omated message] The = Basophils #) system which generated this result tra nsmitted reference range : <=0.2. The reference r lance was not used to int erpret this result as normal/abnormal . [facility] NorthwestPpdcvhuRAYCLGDYVW2549-30-87 17:07:00 Test Item Value Reference Range Interpretation Comments Eosinophils # (test code 0.3 See_Comment [A utomated message] The = Eosinophils #) system whic h generated this result tra nsmitted reference range : <=0.5. The reference r lance was not used to int erpret this result as normal/abnormal . [facility] NorthwestCnyzhoeGNUBKPXAMI5990-50-71 17:07:00 Test Item Value Reference Range Interpretation Comments Monocytes # (test code 0.6 See_Comment [Aut omated message] The = Monocytes #) system which generated this result tra nsmitted reference range : <=0.8. The reference r lance was not used to int erpret this result as normal/abnormal . [facility] NorthwestIqvsezfVYHHYJSBBB3007-74-35 17:07:00 Test Item Value Reference Range Interpretation Comments Lymphocytes # (test code = Lymphocytes 1.6 1.0-5.5 #) [facility] NorthwestKefrhvwPDTUSYZTLD6991-74-16 17:07:00 Test Item Value Reference Range Interpretation Comments Segs-Bands # (test code = Segs-Bands #) 6.8 1.5-8.1 [facility] NorthwestNusjiqbVLIOWHLIZD4659-17-97 17:07:00 Test Item Value Reference Range Interpretation Comments Platelet (test code = Platelet) 170 133-450 [facility] NorthwestUfqcyvcYFZNKOZLAV3490-73-11 17:07:00 Test Item Value Reference Range Interpretation Comments MPV (test code = MPV) 7.6 7.4-10.4 [facility] NorthwestTojtvdfPOEDOZOTRN9432-01-29 17:07:00 Test Item Value Reference Range Interpretation Comments MCHC (test code = MCHC) 33.8 32.0-36.0 [facility] NorthwestBmeggbuIMRUVKWWQY9802-38-16 17:07:00 Test Item Value Reference Range Interpretation Comments RDW (test code = RDW) 14.2 11.5-14.5 [facility] NorthwestIkuhwloKXUYSHUHUW3792-47-37 17:07:00 Test Item Value Reference Range Interpretation Comments MCH (test code = MCH) 33.1 pg 27.0-31.0 [facility] NorthwestHlonsygXYQNWYRJAS4870-02-41 17:07:00 Test Item Value Reference Range Interpretation Comments MCV (test code = MCV) 97.9 80.0-94.0 [facility] NorthwestEatzycjPYLDUBKOFO0529-22-43 17:07:00 Test Item Value Reference Range Interpretation Comments Hgb (test code = Hgb) 14.2 14.0-18.0 [facility] NorthwestScjqbtqFXVHVYRKQO9414-42-71 17:07:00 Test Item Value Reference Range Interpretation Comments Hct (test code = Hct) 42.1 42.0-54.0 [facility] NorthwestZqfvwgqUEZDWPBMLP8015-63-44 17:07:00 Test Item Value Reference Range Interpretation Comments WBC (test code = WBC) 9.3 3.7-10.4 [facility] NorthwestIgnbbnhFUUJWUFXBP0050-35-20 17:07:00 Test Item Value Reference Range Interpretation Comments RBC (test code = RBC) 4.30 4.70-6.10 [facility]WFCDTZPGKY25[facility] 17:07:00 Test Item Value Reference Range Interpretation Comments Vanco Tr TND (test code = Vanco Tr unknown TND) [facility]QxzlcqeQEXLASHVUE8769-42-64 17:07:00 Test Item Value Reference Range Interpretation Comments Vanco Tr (test code = Vanco Tr) 7.7 [facility]2014-06-23 19:25:00 Test Item Value Reference Range Interpretation Comments eGFR (test code = eGFR) 47 [facility] OGNJF2732-52-62 19:25:00 Test Item Value Reference Range Interpretation Comments Creatinine Lvl (test code = Creatinine 1.7 0.5-1.4 Lvl) [facility] UASXX7773-55-40 19:25:00 Test Item Value Reference Range Interpretation Comments BUN (test code = BUN) 14 [facility]XvcfqymQPEICBBTNUZZ8145-44-46 19:25:00 Test Item Value Reference Range Interpretation Comments Potassium Lvl (test code = Potassium 4.3 3.5-5.1 Lvl) [facility]ZOGBWTC5012-[facility] 19:25:00 Test Item Value Reference Range Interpretation Comments Hct (test code = Hct) 36.8 42.0-54.0 [facility] NorthwestBmvaosnRTAZXIRWHW7862-02-35 19:25:00 Test Item Value Reference Range Interpretation Comments MCV (test code = MCV) 97.6 80.0-94.0 [facility] NorthwestZqolrghJGCKHSKHNA7485-35-52 19:25:00 Test Item Value Reference Range Interpretation Comments MCH (test code = MCH) 33.2 pg 27.0-31.0 [facility]FebelmdHGJDPNTDTY4775-24-64 19:25:00 Test Item Value Reference Range Interpretation Comments Hgb (test code = Hgb) 12.5 14.0-18.0 [facility] HospitalCslshftHGHLOMJUWD4501-45-06 19:25:00 Test Item Value Reference Range Interpretation Comments WBC (test code = WBC) 7.7 3.7-10.4 [facility] HospitalBghnaulXFSNKNYQKQ2030-16-69 19:25:00 Test Item Value Reference Range Interpretation Comments RBC (test code = RBC) 3.77 4.70-6.10 [facility] NorthwestYnkyottERTUGKWEDX7034-56-43 19:25:00 Test Item Value Reference Range Interpretation Comments RDW (test code = RDW) 14.0 11.5-14.5 [facility] NorthwestHzuszqwEAPMTBDLED7839-23-26 19:25:00 Test Item Value Reference Range Interpretation Comments Platelet (test code = Platelet) 155 133-450 [facility] NorthwestTcavvckSGQCQFAIJS6592-53-25 19:25:00 Test Item Value Reference Range Interpretation Comments MPV (test code = MPV) 7.7 7.4-10.4 [facility] NorthwestHmiebnzXRWPKLQSNM0893-89-73 19:25:00 Test Item Value Reference Range Interpretation Comments MCHC (test code = MCHC) 34.0 32.0-36.0 [facility] NorthwestKzunasgTMPANYCFZM4407-66-75 19:25:00 Test Item Value Reference Range Interpretation Comments Segs-Bands # (test code = Segs-Bands #) 5.7 1.5-8.1 [facility] NorthwestMprlrzrSYJVFLEZEP3707-15-93 19:25:00 Test Item Value Reference Range Interpretation Comments Eosinophils (test code = 4.3 See_Comment [A utomated message] The Eosinophils) system which ge nerated this result tra nsmitted reference range : <=4.0. The reference r lance was not used to int erpret this result as normal/abnormal . [facility] NorthwestYbrzoebCGFSOARUUL2864-73-39 19:25:00 Test Item Value Reference Range Interpretation Comments Basophils # (test code 0.0 See_Comment [Aut omated message] The = Basophils #) system which generated this result tra nsmitted reference range : <=0.2. The reference r lance was not used to int erpret this result as normal/abnormal . [facility] NorthwestQpjmsjtTUIMGQLZBU8230-59-72 19:25:00 Test Item Value Reference Range Interpretation Comments Basophils (test code = 0.3 See_Comment [Aut omated message] The Basophils) system which ge nerated this result tra nsmitted reference range : <=1.0. The reference r lance was not used to int erpret this result as normal/abnormal . [facility] NorthwestVmnmdgtTKSNMAZRKX1627-88-11 19:25:00 Test Item Value Reference Range Interpretation Comments Monocytes (test code = Monocytes) 5.1 2.0-12.0 [facility] NorthwestEayjnunELJNBVXORK2365-59-00 19:25:00 Test Item Value Reference Range Interpretation Comments Lymphocytes (test code = Lymphocytes) 16.3 20.0-40.0 [facility] NorthwestRamzzggPCJQKLLTAE2902-95-15 19:25:00 Test Item Value Reference Range Interpretation Comments Lymphocytes # (test code = Lymphocytes 1.2 1.0-5.5 #) [facility] NorthwestMpablehOTLYGRDWKS3535-20-20 19:25:00 Test Item Value Reference Range Interpretation Comments Eosinophils # (test code 0.3 See_Comment [A utomated message] The = Eosinophils #) system whic h generated this result tra nsmitted reference range : <=0.5. The reference r lance was not used to int erpret this result as normal/abnormal . [facility] NorthwestJeiclgzXWUUGTBTZZ2376-45-65 19:25:00 Test Item Value Reference Range Interpretation Comments Monocytes # (test code 0.4 See_Comment [Aut omated message] The = Monocytes #) system which generated this result tra nsmitted reference range : <=0.8. The reference r lance was not used to int erpret this result as normal/abnormal . [facility] NorthwestOjkeatiHXGIFZJJAN6646-77-00 19:25:00 Test Item Value Reference Range Interpretation Comments Segs (test code = Segs) 74.0 45.0-75.0 [facility]XhywmryJXLWWYAVCH6429-09-18 19:25:00 Test Item Value Reference Range Interpretation Comments Vanco Tr TND (test code = Vanco Tr unknown TND) [facility]wayWoqellkGXLPXKFYUJ9857-74-17 19:25:00 Test Item Value Reference Range Interpretation Comments Vanco Tr (test code = Vanco Tr) 24.4 [facility] WONOZ7745-04-10 19:25:00 Test Item Value Reference Range Interpretation Comments eGFR (test code = eGFR) 47 [facility] QVVVH1619-62-91 19:25:00 Test Item Value Reference Range Interpretation Comments Creatinine Lvl (test code = Creatinine 1.7 0.5-1.4 Lvl) [facility] NHOWC1343-99-60 19:25:00 Test Item Value Reference Range Interpretation Comments BUN (test code = BUN) 14 7-22 [facility]VjwfaspQPQOFBIGRRTR8102-39-70 19:25:00 Test Item Value Reference Range Interpretation Comments Potassium Lvl (test code = Potassium 4.3 3.5-5.1 Lvl) [facility] NorthwestWjhuyvrYSSRUBANDD4606-13-21 19:25:00 Test Item Value Reference Range Interpretation Comments Hct (test code = Hct) 36.8 42.0-54.0 [facility] NorthwestLuljuuvVLKNZXTGFU9764-01-36 19:25:00 Test Item Value Reference Range Interpretation Comments MCV (test code = MCV) 97.6 80.0-94.0 [facility] NorthwestPzkbllaNRMCAQTKFJ6438-88-29 19:25:00 Test Item Value Reference Range Interpretation Comments MCH (test code = MCH) 33.2 pg 27.0-31.0 [facility] NorthwestBrzbjwwUCBDIIFBVO9613-02-51 19:25:00 Test Item Value Reference Range Interpretation Comments Hgb (test code = Hgb) 12.5 14.0-18.0 [facility] NorthwestRoszzslQBIVLVIWAL0855-69-62 19:25:00 Test Item Value Reference Range Interpretation Comments WBC (test code = WBC) 7.7 3.7-10.4 [facility] NorthwestFjlubjsWRTMOCXOBS3072-80-10 19:25:00 Test Item Value Reference Range Interpretation Comments RBC (test code = RBC) 3.77 4.70-6.10 [facility] NorthwestFnccaqhHCBZWPPXDW9754-51-14 19:25:00 Test Item Value Reference Range Interpretation Comments RDW (test code = RDW) 14.0 11.5-14.5 [facility] NorthwestRbnayuhGYHJNUMYTA4233-61-99 19:25:00 Test Item Value Reference Range Interpretation Comments Platelet (test code = Platelet) 155 133-450 [facility] NorthwestTkaetcpRRPYTWDSSA8252-03-31 19:25:00 Test Item Value Reference Range Interpretation Comments MPV (test code = MPV) 7.7 7.4-10.4 [facility] NorthwestJnycahhDRPNYIYFGA5604-76-47 19:25:00 Test Item Value Reference Range Interpretation Comments MCHC (test code = MCHC) 34.0 32.0-36.0 [facility] NorthwestKlcuatiWBTHAGDFED3153-56-63 19:25:00 Test Item Value Reference Range Interpretation Comments Segs-Bands # (test code = Segs-Bands #) 5.7 1.5-8.1 [facility] NorthwestWxddsnhDMGBUVMVLO9867-23-50 19:25:00 Test Item Value Reference Range Interpretation Comments Eosinophils (test code = 4.3 See_Comment [A utomated message] The Eosinophils) system which ge nerated this result tra nsmitted reference range : <=4.0. The reference r lance was not used to int erpret this result as normal/abnormal . [facility] NorthwestEbblweoFKQWCHQEPE5727-33-17 19:25:00 Test Item Value Reference Range Interpretation Comments Basophils # (test code 0.0 See_Comment [Aut omated message] The = Basophils #) system which generated this result tra nsmitted reference range : <=0.2. The reference r lance was not used to int erpret this result as normal/abnormal . [facility] NorthwestNkcjzwkKZXSDEBEQI5013-37-17 19:25:00 Test Item Value Reference Range Interpretation Comments Basophils (test code = 0.3 See_Comment [Aut omated message] The Basophils) system which ge nerated this result tra nsmitted reference range : <=1.0. The reference r lance was not used to int erpret this result as normal/abnormal . [facility] NorthwestXwllkisGESPBHJHKM1084-89-65 19:25:00 Test Item Value Reference Range Interpretation Comments Monocytes (test code = Monocytes) 5.1 2.0-12.0 [facility] NorthwestWpreqtkOSSFIDUQQS2214-36-70 19:25:00 Test Item Value Reference Range Interpretation Comments Lymphocytes (test code = Lymphocytes) 16.3 20.0-40.0 [facility] NorthwestQutwynzFVUYMOBTQQ1331-40-63 19:25:00 Test Item Value Reference Range Interpretation Comments Lymphocytes # (test code = Lymphocytes 1.2 1.0-5.5 #) [facility] NorthwestTttshxkPTDFQPVKJA1015-02-91 19:25:00 Test Item Value Reference Range Interpretation Comments Eosinophils # (test code 0.3 See_Comment [A utomated message] The = Eosinophils #) system [facility] h generated this result tra nsmitted reference range : <=0.5. The reference r lance was not used to int erpret this result as normal/abnormal . [facility] NorthwestQuxahqqHCPWUZVAAQ1006-23-05 19:25:00 Test Item Value Reference Range Interpretation Comments Monocytes # (test code 0.4 See_Comment [Aut omated message] The = Monocytes #) system which generated this result tra nsmitted reference range : <=0.8. The reference r lance was not used to int erpret this result as normal/abnormal . [facility]IzlaaesUWGOSTUZTY1444-76-19 19:25:00 Test Item Value Reference Range Interpretation Comments Segs (test code = Segs) 74.0 45.0-75.0 [facility]FotmjmbABQOLJVBZE4654-38-80 19:25:00 Test Item Value Reference Range Interpretation Comments Vanco Tr TND (test code = Vanco Tr unknown TND) [facility]wayPlsowmcXRAKATEIZX4473-05-61 19:25:00 Test Item Value Reference Range Interpretation Comments Vanco Tr (test code = Vanco Tr) 24.4 [facility] KBTUW2626-47-37 18:20:00 Test Item Value Reference Range Interpretation Comments eGFR (test code = eGFR) 54 [facility] SXCMP7737-12-65 18:20:00 Test Item Value Reference Range Interpretation Comments Creatinine Lvl (test code = Creatinine 1.5 0.5-1.4 Lvl) [facility] RPGNE1890-40-96 18:20:00 Test Item Value Reference Range Interpretation Comments BUN (test code = BUN) 11 7-22 [facility] AustinZqbsmyjMRHIAVODOPTS4984-42-78 18:20:00 Test Item Value Reference Range Interpretation Comments Potassium Lvl (test code = Potassium 4.5 3.5-5.1 Lvl) [facility]62[facility]68[facility] 18:20:00 Test Item Value Reference Range Interpretation Comments MCH (test code = MCH) 32.7 pg 27.0-31.0 [facility]wHFXMGGZIHE2841-53-13 18:20:00 Test Item Value Reference Range Interpretation Comments MCHC (test code = MCHC) 33.6 32.0-36.0 [facility]ZvivmkpNMKTQUCAPZ7353-64-24 18:20:00 Test Item Value Reference Range Interpretation Comments Platelet (test code = Platelet) 186 133-450 [facility]FfwjdxzPVNDRQKMST2379-88-98 18:20:00 Test Item Value Reference Range Interpretation Comments RDW (test code = RDW) 14.0 11.5-14.5 [facility]UqupruoMVWLDIBIQH4255-69-25 18:20:00 Test Item Value Reference Range Interpretation Comments MPV (test code = MPV) 7.4 7.4-10.4 [facility]WfmtyfrQHUWVVOAXL0587-86-94 18:20:00 Test Item Value Reference Range Interpretation Comments Hgb (test code = Hgb) 12.2 14.0-18.0 [facility]JlixmmlIOAVBOKGUY7855-26-00 18:20:00 Test Item Value Reference Range Interpretation Comments RBC (test code = RBC) 3.73 4.70-6.10 [facility] NorthwestMvmshfqOZUMYRXPWP7152-49-55 18:20:00 Test Item Value Reference Range Interpretation Comments MCV (test code = MCV) 97.6 80.0-94.0 [facility] NorthwestCazpmtrKMAHLOVOMI9386-51-96 18:20:00 Test Item Value Reference Range Interpretation Comments Hct (test code = Hct) 36.4 42.0-54.0 [facility] NorthwestFrddevcVOEMFIABRX9060-42-76 18:20:00 Test Item Value Reference Range Interpretation Comments WBC (test code = WBC) 9.7 3.7-10.4 [facility] NorthwestTysewplGHJVNFVDYH3443-17-73 18:20:00 Test Item Value Reference Range Interpretation Comments Basophils # (test code 0.1 See_Comment [Aut omated message] The = Basophils #) system which generated this result tra nsmitted reference range : <=0.2. The reference r lance was not used to int erpret this result as normal/abnormal . [facility] NorthwestLkqtkwpRJVBOZJKVD5809-65-48 18:20:00 Test Item Value Reference Range Interpretation Comments Lymphocytes # (test code = Lymphocytes 2.0 1.0-5.5 #) [facility] NorthwestRsryrqwGHVJPCPYGE9532-83-63 18:20:00 Test Item Value Reference Range Interpretation Comments Monocytes # (test code 0.7 See_Comment [Aut omated message] The = Monocytes #) system which generated this result tra nsmitted reference range : <=0.8. The reference r lance was not used to int erpret this result as normal/abnormal . [facility] NorthwestArxynvsNTYYTMMIXJ2740-17-53 18:20:00 Test Item Value Reference Range Interpretation Comments Eosinophils # (test code 0.4 See_Comment [A utomated message] The = Eosinophils #) system whic h generated this result tra nsmitted reference range : <=0.5. The reference r lance was not used to int erpret this result as normal/abnormal . [facility] NorthwestGrujgftOFFWVIZKYE2002-27-44 18:20:00 Test Item Value Reference Range Interpretation Comments Basophils (test code = 0.6 See_Comment [Aut omated message] The Basophils) system which ge nerated this result tra nsmitted reference range : <=1.0. The reference r lance was not used to int erpret this result as normal/abnormal . [facility] NorthwestHziksfaWBSKHZMKDM2650-27-74 18:20:00 Test Item Value Reference Range Interpretation Comments Segs-Bands # (test code = Segs-Bands #) 6.6 1.5-8.1 [facility] NorthwestCpgyppwPVNFHRUDHA4141-48-47 18:20:00 Test Item Value Reference Range Interpretation Comments Lymphocytes (test code = Lymphocytes) 20.5 20.0-40.0 [facility] NorthwestYbfjedsJJMCIXERXU4206-06-45 18:20:00 Test Item Value Reference Range Interpretation Comments Monocytes (test code = Monocytes) 7.3 2.0-12.0 [facility] NorthwestQqndwepXZICIUKSWP5520-26-71 18:20:00 Test Item Value Reference Range Interpretation Comments Eosinophils (test code = 3.7 See_Comment [A utomated message] The Eosinophils) system which ge nerated this result tra nsmitted reference range : <=4.0. The reference r lance was not used to int erpret this result as normal/abnormal . [facility] NorthwestXujqnyiNSJNKVRJEW9939-34-35 18:20:00 Test Item Value Reference Range Interpretation Comments Segs (test code = Segs) 67.9 45.0-75.0 [facility]ressYgsawpqCUVHQDEOVK0090-09-11 18:20:00 Test Item Value Reference Range Interpretation Comments Vanco Tr TND (test code = Vanco Tr TND) NA [place] [id number] 18:20:00 Test Item Value Reference Range Interpretation Comments Vanco Tr (test code = Vanco Tr) 24.1 [facility] [id number] 18:20:00 Test Item Value Reference Range Interpretation Comments eGFR (test code = eGFR) 54 [facility]2014-06-19 18:20:00 Test Item Value Reference Range Interpretation Comments Creatinine Lvl (test code = Creatinine 1.5 0.5-1.4 Lvl) [facility]2014-06-19 18:20:00 Test Item Value Reference Range Interpretation Comments BUN (test code = BUN) 11 7[facility]ocngkpZAKZCDTFPGLS7684-37-19 18:20:00 Test Item Value Reference Range Interpretation Comments Potassium Lvl (test code = Potassium 4.5 3.5-5.1 Lvl) [facility]JplecjxQDSOOAWPOJ9982-33-34 18:20:00 Test Item Value Reference Range Interpretation Comments MCH (test code = MCH) 32.7 pg 27.0-31.0 [facility]SsjucxuAIVBXJPUBA6338-68-49 18:20:00 Test Item Value Reference Range Interpretation Comments MCHC (test code = MCHC) 33.6 32.0-36.0 [facility] NorthwestNkfikjcNLAKDLQAEK1745-61-10 18:20:00 Test Item Value Reference Range Interpretation Comments Platelet (test code = Platelet) 186 133-450 [facility] NorthwestTtshykiWDURSYSPYQ9015-97-47 18:20:00 Test Item Value Reference Range Interpretation Comments RDW (test code = RDW) 14.0 11.5-14.5 [facility] NorthwestVftfnjbYRGTHGMYUP2469-35-39 18:20:00 Test Item Value Reference Range Interpretation Comments MPV (test code = MPV) 7.4 7.4-10.4 [facility] NorthwestTgtesrfIMEWWDDXEQ7741-49-77 18:20:00 Test Item Value Reference Range Interpretation Comments Hgb (test code = Hgb) 12.2 14.0-18.0 [facility] NorthwestCzetrqlYFAFUJUDNL8330-98-01 18:20:00 Test Item Value Reference Range Interpretation Comments RBC (test code = RBC) 3.73 4.70-6.10 [facility] NorthwestAvjscvdVKCPOEVZGI9236-48-52 18:20:00 Test Item Value Reference Range Interpretation Comments MCV (test code = MCV) 97.6 80.0-94.0 [facility] NorthwestMuileevFCOSIJOIPW5157-46-70 18:20:00 Test Item Value Reference Range Interpretation Comments Hct (test code = Hct) 36.4 42.0-54.0 [facility] NorthwestPitlxmmORDUOOYSVW9126-52-56 18:20:00 Test Item Value Reference Range Interpretation Comments WBC (test code = WBC) 9.7 3.7-10.4 [facility] NorthwestYpurybaZFHUHDNPMF1041-22-39 18:20:00 Test Item Value Reference Range Interpretation Comments Basophils # (test code 0.1 See_Comment [Aut omated message] The = Basophils #) system which generated this result tra nsmitted reference range : <=0.2. The reference r lance was not used to int erpret this result as normal/abnormal . [facility] NorthwestMhaftvxKLUTJVVOPJ7633-20-97 18:20:00 Test Item Value Reference Range Interpretation Comments Lymphocytes # (test code = Lymphocytes 2.0 1.0-5.5 #) [facility] NorthwestCzgkkkrUMANMJSTVH7934-63-97 18:20:00 Test Item Value Reference Range Interpretation Comments Monocytes # (test code 0.7 See_Comment [Aut omated message] The = Monocytes #) system which generated this result tra nsmitted reference range : <=0.8. The reference r lance was not used to int erpret this result as normal/abnormal . [facility] NorthwestGbmpskhXRLCCIPXKD9426-01-12 18:20:00 Test Item Value Reference Range Interpretation Comments Eosinophils # (test code 0.4 See_Comment [A utomated message] The = Eosinophils #) system whic h generated this result tra nsmitted reference range : <=0.5. The reference r lance was not used to int erpret this result as normal/abnormal . [facility] NorthwestNeeqaimICWABAYRDL4796-58-86 18:20:00 Test Item Value Reference Range Interpretation Comments Basophils (test code = 0.6 See_Comment [Aut omated message] The Basophils) system which ge nerated this result tra nsmitted reference range : <=1.0. The reference r lance was not used to int erpret this result as normal/abnormal . [facility] NorthwestZykbehiGPFJYLYVLH0435-28-49 18:20:00 Test Item Value Reference Range Interpretation Comments Segs-Bands # (test code = Segs-Bands #) 6.6 1.5-8.1 [facility] NorthwestW[id number] 18:20:00 Test Item Value Reference Range Interpretation Comments Lymphocytes (test code = Lymphocytes) 20.5 20.0-40.0 [facility] NorthwestZfltrekQBMVPCNUAF9975-01-49 18:20:00 Test Item Value Reference Range Interpretation Comments Monocytes (test code = Monocytes) 7.3 2.0-12.0 [facility] NorthwestLngnpmiQXZKHMEXFW9085-76-63 18:20:00 Test Item Value Reference Range Interpretation Comments Eosinophils (test code = 3.7 See_Comment [A utomated message] The Eosinophils) system which ge nerated this result tra nsmitted reference range : <=4.0. The reference r lance was not used to int erpret this result as normal/abnormal . [facility]SnrwbkiUIZZUYBFKS3029-03-37 18:20:00 Test Item Value Reference Range Interpretation Comments Segs (test code = Segs) 67.9 45.0-75.0 [facility]HgsccbmPTUVSPQIVV8974-51-76 18:20:00 Test Item Value Reference Range Interpretation Comments Shankar Arredondo TND (test code = Lorenzoo Tr TND) NA [place] [id number] 18:20:00 Test Item Value Reference Range Interpretation Comments Shankar Tr (test code = Vanco Tr) 24.1 [facility]
[2022-02-10 20:54] LABS: Absolute Lymphocytes (CBC) 1.9 K/uL (0.7-4.9); Hematocrit 44.7 % (39.6-49.0); MCV 98.2 fL (80-100); MPV 6.8 fL (7.6-11.3); RBC Red Blood Cell Count 4.55 M/uL (4.33-5.43)
[2022-02-10 20:58] LABS: Protime INR 1.04
[2022-02-10 21:03] LABS: Urine Blood Trace-intact (Negative); Urine Glucose Negative (Negative); Urine Protein 1+ (Negative); Urine Specific Gravity 1.015 (1.005-1.030)
[2022-02-10 21:11] LABS: Barbiturates NEGATIVE (NEGATIVE); Benzodiazepines NEGATIVE (NEGATIVE); Cocaine NEGATIVE (NEGATIVE); METHAMPHETAM NEGATIVE (NEGATIVE); Methadone NEGATIVE (NEGATIVE); Opiates NEGATIVE (NEGATIVE); Phencyclidine NEGATIVE (NEGATIVE); THC Cannibis NEGATIVE (NEGATIVE)
[2022-02-10] MEDS ORDERED: VALPROATE NA 500 MG/5 ML INJ IV ONE (21:16)
[2022-02-10] MEDS ORDERED: LEVETIRACETAM 500 MG/5 ML VIAL IV ONE (21:16)
[2022-02-10] MEDS ORDERED: ONDANSETRON 4 MG/2 ML VIAL ONE (21:16)
[2022-02-10] MEDS ORDERED: MORPHINE 4 MG/ML SYR ONE (21:16)
[2022-02-10] MEDS ORDERED: LORazepam 2 MG/ML VIAL ONE (21:18)
--- NOTE | 2022-02-10 21:29 | RAD REPORT ---
EXAM DESCRIPTION: CT - Head C Spine Cap Wo Con - 02/10/2022 9:16 pm CLINICAL HISTORY: Trauma, head and neck injury. Chest, abdomen and pelvis pain. fall COMPARISON: Head C Spine Cap Wo Con dated 12/27/2021; Head C Spine Cap Wo Con dated 11/30/2020; Head C S pine Cap Wo Con dated 10/03/2020 TECHNIQUE: CT head without contrast. CT cervical spine without contrast with coronal and sagittal reformatted images. CT chest, abdomen and pelvis with coronal and sagittal reformatted images of the spine. All CT scans are performed using dose optimization technique as appropriate and may include automated exposure control or mA/KV adjustment according to patient size. FINDINGS: CT HEAD WITHOUT CONTRAST: No intracranial hemorrhage, hydrocephalus or extra-axial fluid collection. No acute large vascular te rritory infarct. Chronic small vessel ischemic changes. The paranasal sinuses and mastoids are clear. The calvarium is intact. Lamellated calcified stone in the region of the right submandibular duct. CT CERVICAL SPINE WITHOUT CONTRAST: No fracture or subluxation. The prevertebral soft tissues are normal in thickness.Multilevel degenerative changes are present in the spine. CT CHEST, ABDOMEN, PELVIS: Thorax: Chest Wall: No abnormal mass Lungs: No acute abnormality. Minimal paraseptal emphysema. Pleura: No effusions or pneumothorax. Rowan/Mediastinum: No lymphadenopathy. Circumferential thickening of distal esophagus. Aorta/Pulmonary Arteries: Unremarkable Heart: Normal size. Multi-vessel coronary artery disease. Abdomen/Pelvis: Liver: Hepatic steatosis Biliary: Cholelithiasis without CT evidence of acute cholecystitis. Stomach: No significant focal abnormality. Duodenum: No significant focal abnormality. Pancreas: No significant abnormality. Spleen: No significant abnormality. Adrenal: No suspicious lesions. Kidney/ureter: No hydronephrosis. No renal calculi. Bilateral renal artery calcifications. Retroperitoneum: No retroperitoneal adenopathy. Vascular: No aneurysm. Atherosclerosis. Bowel: No significant focal abnormality. Normal appendix. Peritoneum: No ascites or free air. Bladder: Grossly unremarkable. Reproductive: No adnexal masses. Bones: Chronically dislocated left shoulder. Multilevel degenerate disc disease. No fractures identif ied. Other: n/a IMPRESSION: Negative for acute traumatic findings. Incidental findings as noted above.
[2022-02-10] MEDS ORDERED: NA CHLORIDE 0.9% 200 ML ONE (21:31)
[2022-02-10 21:36] LABS: ALT/SGPT 37 U/L (12-78); AST/SGOT 45 U/L (15-37); Albumin 3.4 g/dL (3.4-5.0); Alkaline Phosphatase 98 U/L (45-117); BUN Blood Urea Nitrogen 9 mg/dL (7-18); Bicarbonate 23 mmol/L (21-32); Bilirubin Direct < 0.1 mg/dL (0-0.2); Bilirubin Total 0.3 mg/dL (0.2-1.0); Glomerular Filtration Rate 75 ml/min (=/>90); Glucose Level 82 mg/dL (74-106); Protein, Total 8.3 g/dL (6.4-8.2); Sodium Level 128 mmol/L (136-145)
--- NOTE | 2022-02-10 22:21 | ER ---
Nurse's Notes [facility] Name: Karlos Leblanc Age: 56 yrs Sex: Male : 1965 Arrival Date: 02/10/2022 Time: 20:00 Bed 8 Private MD: Diagnosis: Epileptic seizures related to external causes, not intractable;Alcohol abuse with intoxication;Hypo-osmolality and hyponatremia Presentation: 02/10 20:00 Chief complaint: EMS states: Toned out for episode of seizure, patient has previous ke1 seizures last week as well. Coronavirus screen: Vaccine status: Patient reports receiving the 2nd dose of the covid vaccine. Ebola Screen: No symptoms or risks identified at this time. Initial Sepsis Screen: Does the patient meet any 2 criteria? Yes Does the patient have a suspected source of infection? No. Patient's initial sepsis screen is negative. Risk Assessment: Do you want to hurt yourself or someone else? Patient reports no desire to harm self or others. Onset of symptoms was February 10, 2022 at 19:15. 20:00 Method Of Arrival: EMS: [facility] 20:00 Acuity: KENIA 3 ke1 Triage Assessment: 20:12 General: Appears in no apparent distress. Behavior is appropriate for age. Pain: ke1 Complains of pain in back Pain currently is 9 out of 10 on a pain scale. Quality of pain is described as aching. Neuro: Level of Consciousness is awake, Oriented to person, place, time, situation, Moves all extremities. Respiratory: Respiratory effort is even, unlabored, Respiratory pattern is regular, symmetrical. Derm: Skin Staple back of the head previous fall. Musculoskeletal: Range of motion: intact in all extremities. Historical: - Allergies: 20:12 NKDA; ke1 - PMHx: 20:12 Hypertension; Seizures; ke1 - PSHx: 20:12 cardiac stents; ke1 - Immunization history:: Adult Immunizations Client reports receiving the 2nd dose of the Covid vaccine. - Social history:: Smoking status: Patient reports the use of cigarette tobacco products, smokes two packs cigarettes per day. - Family history:: not pertinent. Screenin:14 Abuse screen: Denies threats or abuse. Nutritional screening: No deficits noted. ke1 Tuberculosis screening: No symptoms or risk factors identified. Fall Risk Fall in past 12 months (25 points). Secondary diagnosis (15 points) seizures, IV access (20 points). Ambulatory Aid- None/Bed Rest/Nurse Assist (0 pts). Gait- Normal/Bed Rest/Wheelchair (0 pts) Mental Status- Oriented to own ability (0 pts). Total Mota Fall Scale indicates High Risk Score (45 or more points). Fall prevention measures have been instituted. Side Rails Up X 2 Frequent Obs/Assessments Occuring. Assessment: 21:00 Pain: Complains of pain in back Pain currently is 7 out of 10 on a pain scale. ke1 21:10 Neuro: Pérez Agitation-Sedation Scale (RASS): 0 - Alert and Calm. ke1 21:30 Neuro: Pérez Agitation-Sedation Scale (RASS): 0 - Alert and Calm. ke1 21:35 Reassessment: Patient is alert, oriented x 3, equal unlabored respirations, skin ke1 warm/dry/pink. Patient states symptoms have improved. Vital Signs: 20:00 BP 136 / 76; Pulse 89; Resp 19; Temp 98.7(O); Pulse Ox 98% on R/A; Weight 82.1 kg; ke1 Height 6 ft. 1 in. (185.42 cm); Pain 9/10; 21:20 Pain 0/10; ke1 20:00 Body Mass Index 23.88 (82.10 kg, 185.42 cm) ke1 ED Course: 20:00 Patient arrived in ED. [facility] 20:00 Aaron Pichardo MD is Attending Physician. [facility] 20:00 Deric Mendez RN is Primary Nurse. ke1 20:00 Maintain EMS IV. Site clean \T\ dry. Gauge \T\ site: 20 g LFA. ke 1 20:12 Triage completed. ke1 20:14 Bed in low position. Call light in reach. Side rails up X 1. Side rails up X2. Seizure ke1 precautions initiated. 21:17 CT Traumagram (Head C Spine CAP wo con) In Process Unspecified. EDMS 21:34 Arm band placed on left wrist. ke1 22:20 Anibal Escobar MD is Referral Physician. [facility] Administered Medications: 21:05 Drug: morphine 4 mg Route: IVP; Infused Over: 4 mins; Site: left forearm; ke1 21:20 Follow up: Pain 0/10 Adult; Response: Pain is decreased ke1 21:05 Drug: Zofran (Ondansetron) 4 mg Route: IVP; Site: left forearm; ke1 21:20 Follow up: Response: No adverse reaction ke1 21:10 Drug: Ativan (LORazepam) 1 mg Route: IVP; Site: left forearm; ke1 21:30 Follow up: Response: Other; Other no seizure ke1 21:15 Drug: Keppra (levETIRAcetam) 500 mg Route: IV; Rate: per protocol; Site: left forearm; ke1 21:25 Drug: Depacon (valproic acid) 1000 mg Volume: 5 ml; Route: IV; Rate: calculated rate; ke1 Site: left forearm; Outcome: 22:20 Discharge ordered by MD. ritter 23:09 Patient left the ED. ke1 Signatures: Dispatcher [employer] Aaron Schumacher MD MD cha Ebrottie, Kouassi RN RN ke1
--- NOTE | 2022-02-10 22:21 | EDPHYS ---
Physician Documentation [facility] Name: Karlos Leblanc Age: 56 yrs Sex: Male : 1965 Arrival Date: 02/10/2022 Time: 20:00 Bed 8 Private MD: ED Physician Aaron Pichardo HPI: 02/10 21:03 This 56 yrs old Male presents to ER via EMS with complaints of seizures, not riya well controlled. 21:03 Trauma demographics: County: The injury occurred in [place] Location of Injury: The riya injury occurred at a friend's home. Mechanism of injury: Fall: and struck a carpeted surface. Associated injuries: The patient sustained injury to the head, injury to the low back, decreased range of motion, pain. Onset: The symptoms/episode began/occurred just prior to arrival. The patient presents after having a single isolated seizure, that lasted an unknown period of time. Character of seizure(s): Loss of consciousness: the patient experienced loss of consciousness, Motor activity: generalized, Incontinence: incontinent of bladder, Apnea: the patient did not experience apnea, Circulation: the patient did not experience evidence of pulse disturbance. Seizure onset: this morning. Context: the seizure(s) was witnessed, by family, occurred at home, occurred while the patient was walking. Seizure Hx: Cause: unknown, Last seizure: The patient's last seizure was approximately 1 day(s) ago, Usual frequency: roughly every 1 week(s), Seizure medications: Keppra. Associated injury: Head/face: Back:. EMS care: none. Historical: - Allergies: 20:12 NKDA; ke1 - PMHx: 20:12 Hypertension; Seizures; ke1 - PSHx: 20:12 cardiac stents; ke1 - Immunization history:: Adult Immunizations Client reports receiving the 2nd dose of the Covid vaccine. - Social history:: Smoking status: Patient reports the use of cigarette tobacco products, smokes two packs cigarettes per day. - Family history:: not pertinent. ROS: 21:03 Constitutional: Negative for fever, chills, and weight loss, Eyes: Negative for injury, riya pain, redness, and discharge, ENT: Negative for injury, pain, and discharge, Neck: Negative for injury, pain, and swelling, Cardiovascular: Negative for chest pain, palpitations, and edema, Respiratory: Negative for shortness of breath, cough, wheezing, and pleuritic chest pain, Abdomen/GI: Negative for abdominal pain, nausea, vomiting, diarrhea, and constipation, Back: Negative for injury and pain, : Negative for injury, bleeding, discharge, and swelling, MS/Extremity: Negative for injury and deformity, Skin: Negative for injury, rash, and discoloration, Neuro: Negative for headache, weakness, numbness, tingling, and seizure, Psych: Negative for depression, anxiety, suicide ideation, homicidal ideation, and hallucinations, Allergy/Immunology: Negative for hives, rash, and allergies, Endocrine: Negative for neck swelling, polydipsia, polyuria, polyphagia, and marked weight changes, Hematologic/Lymphatic: Negative for swollen nodes, abnormal bleeding, and unusual bruising. Exam: 21:03 Constitutional: This is a well developed, well nourished patient who is awake, alert, riya and in no acute distress. Head/Face: Normocephalic, atraumatic. Eyes: Pupils equal round and reactive to light, extra-ocular motions intact. Lids and lashes normal. Conjunctiva and sclera are non-icteric and not injected. Cornea within normal limits. Periorbital areas with no swelling, redness, or edema. ENT: Nares patent. No nasal discharge, no septal abnormalities noted. Tympanic membranes are normal and external auditory canals are clear. Oropharynx with no redness, swelling, or masses, exudates, or evidence of obstruction, uvula midline. Mucous membranes moist. Neck: Trachea midline, no thyromegaly or masses palpated, and no cervical lymphadenopathy. Supple, full range of motion without nuchal rigidity, or vertebral point tenderness. No Meningismus. Chest/axilla: Normal chest wall appearance and motion. Nontender with no deformity. No lesions are appreciated. Cardiovascular: Regular rate and rhythm with a normal S1 and S2. No gallops, murmurs, or rubs. Normal PMI, no JVD. No pulse deficits. Respiratory: Lungs have equal breath sounds bilaterally, clear to auscultation and percussion. No rales, rhonchi or wheezes noted. No increased work of breathing, no retractions or nasal flaring. Abdomen/GI: Soft, non-tender, with normal bowel sounds. No distension or tympany. No guarding or rebound. No evidence of tenderness throughout. Back: No spinal tenderness. No costovertebral tenderness. Full range of motion. Male : Normal genitalia with no discharge or lesions. Skin: Warm, dry with normal turgor. Normal color with no rashes, no lesions, and no evidence of cellulitis. MS/ Extremity: Pulses equal, no cyanosis. Neurovascular intact. Full, normal range of motion. Neuro: Awake and alert, GCS 15, oriented to person, place, time, and situation. Cranial nerves II-XII grossly intact. Motor strength 5/5 in all extremities. Sensory grossly intact. Cerebellar exam normal. Normal gait. Psych: Awake, alert, with orientation to person, place and time. Behavior, mood, and affect are within normal limits. 21:15 ECG was reviewed by the Attending Physician. [facility] 21:32 ECG was reviewed by the Attending Physician. [facility] Vital Signs: 20:00 BP 136 / 76; Pulse 89; Resp 19; Temp 98.7(O); Pulse Ox 98% on R/A; Weight 82.1 kg; ke1 Height 6 ft. 1 in. (185.42 cm); Pain 9/10; 21:20 Pain 0/10; ke1 20:00 Body Mass Index 23.88 (82.10 kg, 185.42 cm) ke1 MDM: 20:00 Patient medically screened. [facility] 21:03 Differential diagnosis: closed head injury, T spine fracture, L spine fracture. riya Differential diagnosis: cerebral vascular accident, drug overdose, cardiac arrhythmia, seizure. Data reviewed: vital signs, nurses notes. 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 Test interpretation: by ED physician or midlevel provider: ECG, plain radiologic studies. Counseling: I had a detailed discussion with the patient and/or guardian regarding: the historical points, exam findings, and any diagnostic results supporting the discharge/admit diagnosis, lab results, radiology results, the need for outpatient follow up, for definitive care, a family practitioner, a neurologist. Physician consultation: Anibal Escobar MD and will see patient in office, next week. 02/10 20:04 Order name: Acetaminophen; Complete Time: 22:19 [facility] 02/10 20:04 Order name: Basic Metabolic Panel; Complete Time: :19 [facility] 02/10 20:04 Order name: CBC with Diff; Complete Time: 22:19 [facility] 02/10 20:04 Order name: ETOH Level; Complete Time: 22:19 [facility] 02/10 20:04 Order name: Hepatic Function; Complete Time: 22:19 [facility] 02/10 20:04 Order name: PT-INR; Complete Time: 21:03 [facility] 02/10 20:04 Order name: Ptt, Activated; Complete Time: 21:03 [facility] 02/10 20:04 Order name: Salicylate; Complete Time: 22:19 [facility] 02/10 20:04 Order name: Urine Drug Screen; Complete Time: 22:19 [facility] 02/10 20:04 Order name: CT Traumagram (Head C Spine CAP wo con); Complete Time: 22:19 [facility] 02/10 21:04 Order name: Urine Dipstick-Ancillary; Complete Time: 22:19 [facility] 02/10 20:04 Order name: EKG; Complete Time: 20:06 [facility] 02/10 20:04 Order name: EKG - Nurse/Tech; Complete Time: 21:32 [facility] 02/10 20:04 Order name: IV Saline Lock; Complete Time: 21:32 [facility] 02/10 20:04 Order name: Labs collected and sent; Complete Time: 20:43 [facility] 02/10 20:04 Order name: Suicide Screening ([place]); Complete Time: 20:43 [facility] 02/10 20:04 Order name: Urine Dipstick-Ancillary (obtain specimen); Complete Time: 21:32 [facility] 02/10 20:04 Order name: Seizure Precautions; Complete Time: 20:43 [facility] EC:32 Rate is 78 beats/min. Rhythm is regular. QRS [place] is Normal. ME interval is normal. QRS riya interval is normal. QT interval is normal. No Q waves. T waves are Normal. No ST changes noted. Clinical impression: NSR w/ Non-specific ST/T Changes and No evidence of ischemia. Interpreted by me. Reviewed by me. Administered Medications: 21:05 Drug: morphine 4 mg Route: IVP; Infused Over: 4 mins; Site: left forearm; ke1 21:20 Follow up: Pain 0/10 Adult; Response: Pain is decreased ke1 21:05 Drug: Zofran (Ondansetron) 4 mg Route: IVP; Site: left forearm; ke1 21:20 Follow up: Response: No adverse reaction ke1 21:10 Drug: Ativan (LORazepam) 1 mg Route: IVP; Site: left forearm; ke1 21:30 Follow up: Response: Other; Other no seizure ke1 21:15 Drug: Keppra (levETIRAcetam) 500 mg Route: IV; Rate: per protocol; Site: left forearm; ke1 21:25 Drug: Depacon (valproic acid) 1000 mg Volume: 5 ml; Route: IV; Rate: calculated rate; ke1 Site: left forearm; Disposition Summary: 02/10/22 22:20 Discharge Ordered Location: Home riya Problem: new riya Symptoms: have improved riya Condition: Stable riya Diagnosis - Epileptic seizures related to external causes, not intractable riya - Alcohol abuse with intoxication riya - Hypo-osmolality and hyponatremia riya Followup: riya - With: Private Physician - When: 2 - 3 days - Reason: Recheck today's complaints, Continuance of care, Re-evaluation by your physician Followup: riya - With: - When: 2 - 3 days - Reason: Recheck today's complaints, Continuance of care, Re-evaluation by your physician Discharge Instructions: - Discharge Summary Sheet riya - Alcohol Intoxication riya - Head Injury, Adult riya - Fall Prevention in the Home, Adult riya - Seizure, Adult riya - Alcohol Use Disorder riya - Seizure, Adult, [id number] riya - Fall Prevention in the Home, Adult, Ibzu-pj-[id number] riya - Head Injury, Adult, [id number] riya - Alcohol Intoxication, Euvu-ul-Nuls riya - Hyponatremia, Jirn-oc-Wugx riya - Alcohol Abuse and Dependence Information, Adult [facility] Forms: - Medication Reconciliation Form [facility] - Thank You Letter riya - Antibiotic Education riya - Prescription Opioid Use [facility] Prescriptions: - Depakote 500 mg Oral Tablet - take 1 tablet by ORAL route every 12 hours; 60 tablet; Refills: 0, Product riya Selection Permitted - Keppra 500 mg Oral Tablet - take 2 tablet by ORAL route every 12 hours; 60 tablet; Refills: 0, Product riya Selection Permitted Signatures: Dispatcher [employer] Aaron Schumacher MD MD cha Ebrottie, Kouassi RN RN ke1 Corrections: (The following items were deleted from the chart) 21:32 21:15 Rate is 74 beats/min. Rhythm is regular. QRS [place] is Normal. ME interval is riya normal. QRS interval is normal. QT interval is normal. No Q waves. T waves are Normal. No ST changes noted. Clinical impression: NSR w/ Non-specific ST/T Changes and No evidence of ischemia. Interpreted by me. Reviewed by me. riya
[2022-02-12 07:15] VITALS: BP 136/76; TEMP 98.7; O2SAT 98
--- NOTE | 2022-02-12 15:58 | EKG ---
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
== END 2022-02-10 23:09 | disposition home or self-care (01) ==
LOC: ER 19:45
DX: G40.509 Epileptic seizures related to external causes, not intractable, without status epilepticus (principal); F10.129 Alcohol abuse with intoxication, unspecified; E87.1 Hypo-osmolality and hyponatremia; F17.210 Nicotine dependence, cigarettes, uncomplicated; I10 Essential (primary) hypertension
CPT/HCPCS: 93005; 85025; 80048; 36415; 80320; 80329 ×2; 85610; 80076; 85730; 81003; 80307; 70450; 71250; 72125; 96375; 96374; 99283; J1953; J2405

== ENCOUNTER 2023-06-21 02:18 | Inpatient (IN) | payer OTHER, SELFPAY ==
[2023-06-21] MEDS ORDERED: ONDANSETRON 4 MG/2 ML VIAL ONE (02:52)
[2023-06-21] MEDS ORDERED: VANCOMYCIN 1 GM/VIAL ONE ×3 (02:52→19:46)
[2023-06-21] MEDS ORDERED: LEVETIRACETAM 500 MG/5 ML VIAL IV ONE (02:53)
[2023-06-21] MEDS ORDERED: MORPHINE 4 MG/ML SYR ONE ×2 (02:53→04:13)
[2023-06-21] MEDS ORDERED: NA CHLORIDE 0.9% 250 ML ONE ×2 (02:53→08:01)
[2023-06-21] MEDS ORDERED: ASPIRIN 81 MG CHEWABLE TABLET ONE (02:53)
[2023-06-21] MEDS ORDERED: NA CHLORIDE 0.9% 200 ML ONE (02:54)
[2023-06-21] MEDS ORDERED: NA CHLORIDE 0.9% 0 ML ONE (02:54)
[2023-06-21] MEDS ORDERED: PIPERACIL/TAZO 3.375 GM VIAL IV ONE (02:55)
[2023-06-21 03:54] LABS: Absolute Lymphocytes (CBC) 2.6 K/uL (0.7-4.9); Hematocrit 39.8 % (39.6-49.0); Lymphocytes % 40.1 % (15.3-44.8); MPV 6.9 fL (7.6-11.3); Platelets 247 thou/uL (152-406); RBC Red Blood Cell Count 4.11 M/uL (4.33-5.43)
[2023-06-21 04:09] LABS: Protime INR 1.1
[2023-06-21 04:11] LABS: ALT/SGPT 37 U/L (16-61); AST/SGOT 29 U/L (15-37); Albumin 2.7 g/dL (3.4-5.0); Alkaline Phosphatase 99 U/L (45-117); BUN Blood Urea Nitrogen 6 mg/dL (7-18); Bicarbonate 26 mEq/L (21-32); Bilirubin Direct < 0.1 mg/dL (0-0.2); Bilirubin Indirect, Calculated ND mg/dL (0.2-0.8); Bilirubin Total 0.2 mg/dL (0.2-1.0); Glomerular Filtration Rate 101 ml/min (=/>90); Glucose Level 89 mg/dL (74-106); Magnesium 2.4 mg/dL (1.6-2.4); NT PRO-BNP 238 pg/mL (<125); Potassium 3.5 mEq/L (3.5-5.1); Protein, Total 9.4 g/dL (6.4-8.2); Sodium Level 133 mEq/L (136-145)
[2023-06-21] MEDS ORDERED: METOCLOPRAMIDE 10 MG/2mL INJ ONE (04:12)
--- NOTE | 2023-06-21 04:51 | EDPHYS ---
Physician Documentation [facility] Name: Karlos Leblanc Age: 57 yrs Sex: Male : 1965 Arrival Date: 06/21/2023 Time: 02:18 Bed IW10 Private MD: ED Physician Neto Cornelius HPI: 06/21 02:25 This 57 yrs old Male presents to ER via Unassigned with complaints of right sp4 lower extremity pain , and seizure . 02:26 Allergies: NKDA; PMHx: Hypertension; Seizures; PSHx: cardiac stents;. sp4 04:38 Patient is a 57-year-old male with history of seizures also peripheral arterial disease sp4 also COPD also OK. He presented with acute onset seizures associated with headache. Patient takes Keppra at home. Additional complaint is right lower extremity redness and pain swelling worse in the last 2 days. Patient requested pain medicine on arrival. Patient has history of left lower extremity below-knee amputation for similar problems in the past. Right leg has history of right foot transmetatarsal amputation secondary to history of infection was found peripheral arterial disease. . Historical: - Allergies: 02:28 NKDA; jw7 - Home Meds: 02:28 amlodipine oral [Active]; Aspirin Oral [Active]; atorvastatin oral [Active]; jw7 clopidogrel oral [Active]; escitalopram oxalate oral [Active]; levetiracetam oral [Active]; Methocarbamol Oral [Active]; sertraline oral [Active]; - PMHx: 02:28 Hypertension; Seizures; Chronic obstructive lung disease; Myocardial infarction; jw7 - PSHx: 02:28 cardiac stents; Left Leg Amputation (below the knee) (cardiac stents); Right Toes jw7 Amputation (cardiac stents); - Immunization history:: Adult Immunizations up to date, Client reports receiving the 2nd dose of the Covid vaccine, Last tetanus immunization: < 5 years ago Flu vaccine is up to date. - Social history:: Smoking status: Patient reports the use of cigarette tobacco products, smokes one pack cigarettes per day. Patient uses alcohol, on a daily basis. Patient/guardian denies using street drugs, IV drugs. - Family history:: not pertinent. ROS: 04:38 Constitutional: Negative for fever, chills, and weight loss, positive seizure, positive sp4 right lower extremity pain and the redness. 04:38 All other systems are negative, Exam: 04:38 Constitutional: This is a well developed, well nourished patient who is awake, alert, sp4 and in no acute distress. Appears to have physical debility, right transmetatarsal remote foot amputation and left below-knee amputation. Head/Face: Normocephalic, atraumatic. Eyes: Pupils equal round and reactive to light, extra-ocular motions intact. Lids and lashes normal. Conjunctiva and sclera are not injected. Cornea within normal limits. Periorbital areas with no swelling, redness, or edema. ENT: Nares patent. No nasal discharge, no septal abnormalities noted. Tympanic membranes are normal and external auditory canals are clear. Oropharynx with no redness, swelling, or masses, exudates, or evidence of obstruction, uvula midline. Mucous membranes moist. Neck: Trachea midline, no thyromegaly or masses palpated, and no cervical lymphadenopathy. Supple, full range of motion without nuchal rigidity, or vertebral point tenderness. Chest/axilla: Normal chest wall appearance and motion. Nontender with no deformity. No lesions are appreciated. Cardiovascular: Regular rate and rhythm with a normal S1 and S2. No gallops, murmurs, or rubs. Normal PMI, no JVD. No pulse deficits. Respiratory: Lungs have equal breath sounds bilaterally, clear to auscultation and percussion. No rales, rhonchi or wheezes noted. No increased work of breathing, no retractions or nasal flaring. Abdomen/GI: Soft, non-tender, with normal bowel sounds. No distension or tympany. No guarding or rebound. No evidence of tenderness throughout. Back: No spinal tenderness. No costovertebral tenderness. Male : Normal genitalia with no discharge or lesions. Skin: Warm, dry with normal turgor. Right lower extremity chronic scheming skin changes, right lower extremity cellulitis with redness pain tenderness MS/ Extremity: Pulses equal, no cyanosis upper extremities, there is left lower extremity below-knee amputation with healed stump, there is a right transmetatarsal foot amputation with 3 right foot ulcers with right lower extremity redness pain tenderness appearance of cellulitis right lower extremity tracking to just below the right knee. Neuro: Awake and alert, GCS 15, oriented to person, place, time, and situation. Cranial nerves II-XII grossly intact. Motor strength 5/5 in all extremities. Sensory grossly intact. Psych: Awake, alert, with orientation to person, place and time. Behavior, mood, and affect are within normal limits 04:38 ECG was reviewed by the Attending Physician. KG at 0256 normal sinus rhythm at the rate of 82 Vital Signs: 02:22 BP 137 / 77; Pulse 89; Resp 18 S; Temp 98.1(O); Pulse Ox 97% on R/A; Weight 104.33 kg; jw7 Height 6 ft. 1 in. ; Pain 8/10; 03:38 BP 138 / 93; Pulse 78; Resp 22 S; Pulse Ox 97% on R/A; jw7 04:00 BP 138 / 70; Pulse 91; Resp 19 S; Pulse Ox 97% on R/A; jw7 05:00 BP 118 / 64; Pulse 79; Resp 22 S; Pulse Ox 97% on R/A; 7 02:22 Body Mass Index 30.34 (104.33 kg, 185.42 cm) [facility] 02:22 Pain Scale: Adult jw7 MDM: 02:25 Patient medically screened. sp4 04:37 ED course: EXAMINATION: US LOWER EXTREMITYARTERIES LIMITED FOLLOW-UP UNILATERAL sp4 INDICATION: Male, 57 years old, ischemia COMPARISON(S): None. TECHNIQUE: Grayscale and color/spectral Doppler ultrasound of the right lower extremity. FINDINGS: Several arterial branches were not evaluated. Technologist exam comments are not available. Maximal velocities (cm/s): Common femoral: 93 Deep femoral: Not measured Superficial femoral: 140 Popliteal: 41 Anterior tibial: Not measured Posterior tibial: 20 Peroneal: Not measured Dorsalis pedis: 21 Other findings: Monophasic waveforms throughout, with spectral broadening in the distal SFA and distally. IMPRESSION: Monophasic waveforms throughout the assessed right lower extremity. Peak systolic velocity of 140 cm/s in the superficial femoral artery. Findings consistent with moderate to severe stenosis. . 04:48 Differential Diagnosis altered mental status, sepsis, flu. Data reviewed: vital signs, sp4 nurses notes, EMS record, old medical records, lab test result(s), EKG, radiologic studies, doppler, plain films. Consideration of Admission/Observation Patient was admitted/placed on observation. Escalation of care including admission/observation considered. Management of patient was discussed with the following: Hospitalist: Keli POSADAS . Fancy Sewer: Justin POSADAS . ED course: EXAM: XR Chest, 1 View CLINICAL HISTORY: The patient is 57 years old and is Male; CHEST PAIN TECHNIQUE: Frontal view of the chest. COMPARISON: No relevant prior studies available. FINDINGS: Lungs: Unremarkable. No consolidation. Pleural space: Unremarkable. No pneumothorax. Heart: Unremarkable. Mediastinum: Unremarkable. Normal mediastinal contour. Bones/joints: No acute findings. IMPRESSION: No acute findings in the chest. . ED course: EXAM: XR FOOT 3 OR MORE VIEWS RIGHT CLINICAL DATA: 57 years Male eval for osteomyelitis TECHNICAL DATA: Three x-ray views of the right foot were performed on 06/21/2023 at 2:38 AM. COMPARISONS: No prior studies were available for comparison. FINDINGS: There are remote postsurgical changes consistent with transmetatarsal amputation of all digits of the right foot. There is no evidence of acute fracture or dislocation. No pathologic lytic or sclerotic bone lesions are identified. On the oblique view there does appear to be cortical thinning and irregularity along the distal aspects of the remaining metatarsals. There is a small plantar calcaneal spur. Bone mineralization is decreased. There is a soft tissue defect along the anterolateral aspect of the right foot. No definite subcutaneous emphysema is identified. IMPRESSION: 1. Remote transmetatarsal amputation of all digits of the right foot. 2. Soft tissue defect along the anterolateral aspect of the right foot. 3. On the oblique view there does appear to be cortical thinning and irregularity along the distal aspects of the residual metatarsals. Osteomyelitis is difficult to exclude on this examination. . 04:52 ED course: Right lower extremity reveals had a mild transmetatarsal right foot sp4 amputation, infected appearing right foot pressure ulcers, also cellulitic changes to right lower extremity. Ischemic skin changes that are chronic. Patient has significant the right lower extremity right foot ischemia and associated nonhealing pressure ulcers with associated cellulitis. . 06/21 02:23 Order name: Basic Metabolic Panel; Complete Time: 04:52 sp4 06/21 02:23 Order name: CBC with Diff; Complete Time: 04:10 sp4 06/21 02:23 Order name: LFT's; Complete Time: sp4 06/21 02:23 Order name: Magnesium; Complete Time: 04:52 sp4 06/21 02:23 Order name: NT PRO-BNP; Complete Time: 04:52 sp4 06/21 02:23 Order name: PT-INR; Complete Time: 04:10 sp06/21 02:23 Order name: Troponin HS; Complete Time: 04:52 sp06/21 02:25 Order name: Blood Culture Adult (2) 4 06/21 03:00 Order name: Lactate w/ 2H reflex if indic.; Complete Time: 04:10 jw7 06/21 04:52 Order name: SARS RAPID sp4 06/21 05:09 Order name: Urinalysis w/ reflexes EDMS 06/21 05:09 Order name: CBC with Automated Diff EDMS 06/21 05:09 Order name: CBC with Automated Diff EDMS 06/21 05:09 Order name: Comprehensive Metabolic Panel EDMS 06/21 05:09 Order name: Comprehensive Metabolic Panel EDMS 06/21 05:09 Order name: Magnesium EDMS 06/21 05:09 Order name: Magnesium EDMS 06/21 05:09 Order name: Phosphorus EDMS 06/21 05:09 Order name: Phosphorus EDMS 06/21 05:13 Order name: Vancomycin Level Trough EDMS 06/21 02:23 Order name: XRAY Chest (1 view) 4 06/21 02:24 Order name: Lower Extremity Artery Uni Ltd US 4 06/21 02:25 Order name: Foot Right 3 View XRAY 4 06/21 02:23 Order name: EKG; Complete Time: 02:23 sp4 06/21 02:23 Order name: Cardiac monitoring; Complete Time: 02:38 06/21 02:23 Order name: EKG - Nurse/Tech; Complete Time: 02:59 06/21 02:23 Order name: IV Saline Lock; Complete Time: 03:40 sp06/21 02:23 Order name: Labs collected and sent; Complete Time: 03:40 06/21 02:23 Order name: O2 Per Protocol; Complete Time: 02:38 06/21 02:23 Order name: O2 Sat Monitoring; Complete Time: 02:38 EC:38 Rate is 82 beats/min. Rhythm is regular, Normal Sinus Rhythm. QRS Esmond is Normal. CT sp4 interval is normal. QRS interval is normal. QT interval is normal. No Q waves. T waves are Normal. No ST changes noted. Clinical impression: Normal ECG. Interpreted by me. Reviewed by me. Administered Medications: 03:20 Drug: Keppra IV 1000 mg IV at calculated rate once Route: IV; Rate: calculated rate; jw7 Site: right forearm; 06:01 Follow up: Response: No adverse reaction; IV Status: Completed infusion; IV Intake: jw7 100ml 03:20 Drug: Aspirin PO Chewable Tablet 81 mg PO once Route: PO; jw7 06:01 Follow up: Response: No adverse reaction jw7 03:20 Drug: NS 0.9% IV 1000 ml IV at 125 ml/hr continuous Route: IV; Rate: 125 ml/hr; Site: [facility] right forearm; 06:02 Follow up: Response: No adverse reaction; IV Status: Infusion continued upon admission; jw IV Intake: 375ml 03:41 Drug: morphine IVP or IV 4 mg IVP once over 4 mins Route: IVP; Infused Over: 4 mins; jw7 Site: right forearm; 06:01 Follow up: Response: No adverse reaction; Marked relief of symptoms jw7 03:41 Drug: Ondansetron IVP 4 mg IVP once; over 2 minutes Route: IVP; Site: right forearm; jw7 06:01 Follow up: Response: No adverse reaction jw7 03:41 Drug: Piperacillin-Tazobactam IVPB 3.375 grams IVPB once over 60 mins; (mix in NS 100 jw7 mL) Route: IVPB; Infused Over: 60 mins; Site: right forearm; 06:02 Follow up: Response: No adverse reaction; IV Status: Completed infusion; IV Intake: jw7 100ml 04:13 Drug: vancoMYCIN IVPB 1 grams IVPB once over 2 hrs Route: IVPB; Infused Over: 2 hrs; jw7 Site: right forearm; 04:29 Drug: morphine IVP or IV 4 mg IVP once over 4 mins Route: IVP; Infused Over: 4 mins; jw7 Site: right forearm; 06:02 Follow up: Response: No adverse reaction jw7 04:29 Drug: metoCLOPramide IVP 10 mg IVP once; over 1 to 2 minutes Route: IVP; Site: right jw forearm; 06:02 Follow up: Response: No adverse reaction jw Disposition Summary: 06/21/23 04:51 Hospitalization Ordered Notes: Hospitalization Status: Inpatient Admission sp4 Provider: Anita Dickey sp4 Condition: Stable sp4 Problem: new sp4 Symptoms: have improved sp4 Bed/Room Type: Standard sp4 Location: Telemetry/MedSurg (Inpatient)(06/21/23 17:16) em1 Room Assignment: 207(06/21/23 17:16) em1 Diagnosis - Cellulitis of right lower limb sp4 - Lower extremity ischemic pain, right lower extremity peripheral arterial disease, sp4 right lower extremity pressure ulcer risk, right fourth infected pressure ulcer. - Seizure disorder, breakthrough seizure, acute head ache sp4 Forms: - Medication Reconciliation Form sp4 - SBAR form sp4 - Leadership Thank You Letter sp4 Signatures: Dispatcher [employer] Jay Barraza em1 Elida Navarrete, RN RN jw7 María Martinez RN RN kb3 Neto Cornelius MD MD sp4 Corrections: (The following items were deleted from the chart) 07:08 04:51 Telemetry/MedSurg (Inpatient) sp4 kb3 07:08 04:51 sp4 kb3 17:16 07:08 [facility] ER HOLD kb3 em1 17:16 07:08 ERHOLD- kb3 em1
--- NOTE | 2023-06-21 04:51 | ER ---
Nurse's Notes [facility] Name: Karlos Leblanc Age: 57 yrs Sex: Male : 1965 Arrival Date: 06/21/2023 Time: 02:18 Bed IW10 Private MD: Diagnosis: Cellulitis of right lower limb;Lower extremity ischemic pain, right lower extremity peripheral arterial disease, right lower extremity pressure ulcer risk, right fourth infected pressure ulcer.;Seizure disorder, breakthrough seizure, acute head ache Presentation: 06/21 02:22 Chief complaint: Patient states: "I had a seizure this afternoon that started with an jw7 extreme headache, and that is not normal for me". Coronavirus screen: At this time, the client does not indicate any symptoms associated with coronavirus-19. Ebola Screen: No symptoms or risks identified at this time. Initial Sepsis Screen: Does the patient meet any 2 criteria? No. Patient's initial sepsis screen is negative. Does the patient have a suspected source of infection? No. Patient's initial sepsis screen is negative. Risk Assessment: Do you want to hurt yourself or someone else? Patient reports no desire to harm self or others. Onset of symptoms was June 21, 2023. Activity prior to arrival: seizure. 02:22 Method Of Arrival: EMS: [facility] jw7 02:22 Acuity: KENIA 3 jw7 Triage Assessment: 02:28 General: Appears in no apparent distress. uncomfortable, Behavior is calm, cooperative. jw7 Pain: Complains of pain in right lower leg Pain does not radiate. Pain currently is 8 out of 10 on a pain scale. Quality of pain is described as sharp, throbbing, Pain began gradually, Is continuous. EENT: No deficits noted. No signs and/or symptoms were reported regarding the EENT system. Neuro: Pérez Agitation-Sedation Scale (RASS): 0 - Alert and Calm Level of Consciousness is awake, alert, obeys commands, Oriented to person, place, time, situation. Cardiovascular: Capillary refill < 3 seconds Clubbing of nail beds is absent JVD is absent Patient's skin is warm and dry. Respiratory: Airway is patent Trachea midline Respiratory effort is even, unlabored, Respiratory pattern is regular, symmetrical. GI: Abdomen is round non-distended, Bowel sounds present X 4 quads. : No deficits noted. No signs and/or symptoms were reported regarding the genitourinary system. Derm: Skin is healthy with good turgor, Skin is dry, Skin is normal, Skin temperature is warm Wound noted Right foot, and ankle Wound is Red, swollen with open wounds. Musculoskeletal: Amputation of Left lower leg (below the knee); and Right Toes. Historical: - Allergies: 02:28 NKDA; jw7 - Home Meds: 02:28 amlodipine oral [Active]; Aspirin Oral [Active]; atorvastatin oral [Active]; jw7 clopidogrel oral [Active]; escitalopram oxalate oral [Active]; levetiracetam oral [Active]; Methocarbamol Oral [Active]; sertraline oral [Active]; - PMHx: :28 Hypertension; Seizures; Chronic obstructive lung disease; Myocardial infarction; jw7 - PSHx: :28 cardiac stents; Left Leg Amputation (below the knee) (cardiac stents); Right Toes jw7 Amputation (cardiac stents); - Immunization history:: Adult Immunizations up to date, Client reports receiving the 2nd dose of the Covid vaccine, Last tetanus immunization: < 5 years ago Flu vaccine is up to date. - Social history:: Smoking status: Patient reports the use of cigarette tobacco products, smokes one pack cigarettes per day. Patient uses alcohol, on a daily basis. Patient/guardian denies using street drugs, IV drugs. - Family history:: not pertinent. Screenin:37 [facility] ED Fall Risk Assessment (Adult) History of falling in the last 3 months, jw7 including since admission Yes- single mechanical fall (1 pt) Confusion or Disorientation No (0 pts) Intoxicated or Sedated No (0 pts) Impaired Gait Yes (1 pt) Mobility Assist Device Used Yes (1 pt) Altered Elimination No (0 pt) Score/Fall Risk Level 3 or more points = High Risk Oriented to surroundings, Maintained a safe environment, Educated pt \\T\\ family on fall prevention, incl call for assistance when getting out of bed, Assessed \\T\\ reinforced patient's understanding of fall precautions. Abuse screen: Denies threats or abuse. Denies injuries from another. Nutritional screening: No deficits noted. Tuberculosis screening: No symptoms or risk factors identified. Assessment: 02:30 General: See Triage Assessment. jw7 03:38 Reassessment: Patient appears in no apparent distress at this time. No changes from jw7 previously documented assessment. Patient and/or family updated on plan of care and expected duration. Pain level reassessed. Patient is alert, oriented x 3, equal unlabored respirations, skin warm/dry/pink. 04:42 Reassessment: Patient appears in no apparent distress at this time. Patient and/or jw7 family updated on plan of care and expected duration. Pain level reassessed. Patient is alert, oriented x 3, equal unlabored respirations, skin warm/dry/pink. Patient states symptoms have improved. 05:30 Reassessment: Patient appears in no apparent distress at this time. No changes from jw7 previously documented assessment. Patient and/or family updated on plan of care and expected duration. Pain level reassessed. Patient is alert, oriented x 3, equal unlabored respirations, skin warm/dry/pink. Vital Signs: 02:22 BP 137 / 77; Pulse 89; Resp 18 S; Temp 98.1(O); Pulse Ox 97% on R/A; Weight 104.33 kg; jw7 Height 6 ft. 1 in. ; Pain 8/10; 03:38 BP 138 / 93; Pulse 78; Resp 22 S; Pulse Ox 97% on R/A; jw7 04:00 BP 138 / 70; Pulse 91; Resp 19 S; Pulse Ox 97% on R/A; jw7 05:00 BP 118 / 64; Pulse 79; Resp 22 S; Pulse Ox 97% on R/A; jw7 02:22 Body Mass Index 30.34 (104.33 kg, 185.42 cm) jw7 02:22 Pain Scale: Adult jw7 ED Course: 02:22 Patient arrived in ED. jw7 02:22 Elida Navarrete, RN is Primary Nurse. jw7 02:22 Neto Cornelius MD is Attending Physician. sp4 02:28 Triage completed. jw7 02:37 Patient has correct armband on for positive identification. Bed in low position. Call [facility] light in reach. Side rails up X2. 02:37 Arm band placed on. jw7 02:49 XRAY Chest (1 view) In Process Unspecified. EDMS 02:49 Foot Right 3 View XRAY In Process Unspecified. EDMS 03:00 Initial lab(s) drawn, by me, sent to lab. EKG done, by ED staff, reviewed by Neto Cornelius MD. 03:00 Inserted saline lock: 20 gauge in right forearm, using aseptic technique. Blood jw7 collected. 03:01 Lower Extremity Artery Uni Ltd US In Process Unspecified. EDMS 03:05 First set of blood cultures drawn by me. jw7 03:20 Second set of blood cultures drawn by me. jw7 03:40 Blood Culture Adult (2) Sent. jw7 03:40 Lactate w/ 2H reflex if indic. Sent. jw7 03:40 Basic Metabolic Panel Sent. jw7 03:40 CBC with Diff Sent. jw7 03:40 LFT's Sent. jw7 03:40 Magnesium Sent. jw7 03:40 NT PRO-BNP Sent. jw7 03:40 PT-INR Sent. jw7 03:40 Troponin HS Sent. jw7 04:50 Anita Dickey MD is Hospitalizing Provider. sp4 06:04 No provider procedures requiring assistance completed. jw7 06:04 Patient admitted, IV remains in place. jw7 06:05 Provided Education on: need for admit. jw7 08:20 SARS RAPID Sent. [email or web address] Administered Medications: 03:20 Drug: Keppra IV 1000 mg IV at calculated rate once Route: IV; Rate: calculated rate; jw7 Site: right forearm; 06:01 Follow up: Response: No adverse reaction; IV Status: Completed infusion; IV Intake: jw7 100ml 03:20 Drug: Aspirin PO Chewable Tablet 81 mg PO once Route: PO; jw7 06:01 Follow up: Response: No adverse reaction jw7 03:20 Drug: NS 0.9% IV 1000 ml IV at 125 ml/hr continuous Route: IV; Rate: 125 ml/hr; Site: [facility] right forearm; 06:02 Follow up: Response: No adverse reaction; IV Status: Infusion continued upon admission; jw7 IV Intake: 375ml 03:41 Drug: morphine IVP or IV 4 mg IVP once over 4 mins Route: IVP; Infused Over: 4 mins; jw7 Site: right forearm; 06:01 Follow up: Response: No adverse reaction; Marked relief of symptoms jw7 03:41 Drug: Ondansetron IVP 4 mg IVP once; over 2 minutes Route: IVP; Site: right forearm; jw7 06:01 Follow up: Response: No adverse reaction jw7 03:41 Drug: Piperacillin-Tazobactam IVPB 3.375 grams IVPB once over 60 mins; (mix in NS 100 jw7 mL) Route: IVPB; Infused Over: 60 mins; Site: right forearm; 06:02 Follow up: Response: No adverse reaction; IV Status: Completed infusion; IV Intake: jw7 100ml 04:13 Drug: vancoMYCIN IVPB 1 grams IVPB once over 2 hrs Route: IVPB; Infused Over: 2 hrs; jw7 Site: right forearm; 04:29 Drug: morphine IVP or IV 4 mg IVP once over 4 mins Route: IVP; Infused Over: 4 mins; jw7 Site: right forearm; 06:02 Follow up: Response: No adverse reaction jw7 04:29 Drug: metoCLOPramide IVP 10 mg IVP once; over 1 to 2 minutes Route: IVP; Site: right jw7 forearm; 06:02 Follow up: Response: No adverse reaction jw7 Medication: 06:04 VIS not applicable for this client. jw7 Intake: 06:01 IV: 100ml; Total: 100ml. jw7 06:02 IV: 375ml; Total: 475ml. jw7 06:02 IV: 100ml; Total: 575ml. jw7 Outcome: 04:51 Decision to Hospitalize by Provider. sp4 17:35 Admitted to Med/surg accompanied by tech, room 207, with chart, Report called to meGuillermo Grossman RN 17:35 Condition: stable 19:19 Patient left the ED. md1 Signatures: Dispatcher [employer] EDAK Elida Navarrete RN RN jw7 Potepalov, Sergey, MD MD sp4 Estefani Camacho RN RN me1 Piyush Centeno jg11 Corrections: (The following items were deleted from the chart) 03:39 03:37 Initial lab(s) drawn, by md, sent to lab. EKG done, by ED staff, reviewed by hazel oliva 03:40 03:37 Inserted saline lock: 20 gauge in right forearm, using aseptic technique. Blood jw7 collected. hazel
[2023-06-21] MEDS ORDERED: ONDANSETRON 4 MG/2 ML VIAL IV PRN (05:04)
--- NOTE | 2023-06-21 05:19 | P.HP ---
Certification for Inpatient With expected LOS: >2 Midnights Practitioner: I am a practitioner with admitting privileges, knowledge of patient current condition, hospital course, and medical plan of care. Services: Services provided to patient in accordance with Admission requirements found in Title 42 Section 412.3 of the Code of Federal Regulations Patient History Date of Service: 06/21/23 Reason for admission: Right stump cellulitis History of Present Illness: 57-year-old male with seizure disorder, coronary artery disease with stent, COPD, hypertension and peripheral vascular disease s/p Lt BKA and Rt TMA was brought to the ED after he had a breakthrough seizure this afternoon along with headache. Patient states that he usually has breakthrough seizures but this time he had extreme headache which is not normal for him. When he arrived to the ED his vital signs are within normal limits and labs were benign except with findings of Na 133 and BNP 238. He was loaded with IV Keppra 1 g. On further evaluation he was found with multiple ulcers on his right lower extremity stump along with redness and some mild swelling of the lower extremity. He denies any fever or GI symptoms. Lower extremity arterial Doppler showed monophasic waveforms throughout the right lower extremity consistent with moderate to severe stenosis. X-ray of the right foot showed soft tissue defect on the anter ior lateral aspect of the right foot and cortical thinning/irregularity at the distal aspects metatarsal, osteomyelitis difficult to exclude on this examination. Patient also received aspirin, Zofran, IV morphine, 10 mg IV Reglan and vancomycin and Zosyn. General surgeon Dr. Anderson has been consulted and will see the patient. Allergies No Known Allergies Allergy (Verified 12/28/21 01:33) Home Medications: Levetiracetam [Keppra] 1,000 mg PO BID #60 12/28/21 - Past Medical/Surgical History Diabetic: No -: HTN -: CHF, diastolic dysfunction -: COPD -: CAD -: PVD -: Left & right partial foot amputation -: History of osteomyelitis -: History of drug use -: Alcohol abuse -: Tobacco abuse -: GERD -: Rt great toe & 2nd toe amputated-Dec 2015 -: Left partial foot amputation-January 2019 -: right partial foot amputation Psychosocial/ Personal History: Patient currently lives in a trailer - Family History Father -: Cancer Mother -: Cancer - Social History Alcohol use: No CD- Drugs: No Caffeine use: No Review of Systems 10-point ROS is otherwise unremarkable Physical Examination - Physical Exam General: Alert, In no apparent distress, Oriented x3 HEENT: Atraumatic, Normocephalic, PERRLA, Mucous membr. moist/pink Neck: Supple, JVD not distended Respiratory: Clear to auscultation bilaterally, Normal air movement Cardiovascular: Regular rate/rhythm Gastrointestinal: Normal bowel sounds, Soft and benign, Non-distended, No tenderness Musculoskeletal: Swelling, Erythema (3 cm ulcers on anterior-lateral and posterior medial aspects of the stump), Warmth Neurological: Normal speech, Sensation intact - Studies Laboratory Data (last 24 hrs) 06/21/23 06/21/23 06/21/23 03:05 03:05 03:05 WBC 6.40 Hgb 13.9 Hct 39.8 Plt Count 247 PT 12.1 INR 1.10 Sodium 133 L Potassium 3.5 BUN 6 L Creatinine 0.84 Glucose 89 Magnesium 2.4 Total Bilirubin 0.2 AST 29 ALT 37 Alkaline Phosphatase 99 Assessment and Plan - Plan Right lower extremity cellulitis Possible osteomyelitis IV antibiotics with vancomycin and cefepime Difficult to exclude osteomyelitis on x-ray foot Follow-up blood cultures General surgery to evaluate Seizure disorder S/p IV Keppra load for breakthrough seizure Resume 1 g Keppra twice a day Peripheral artery disease s/p Lt BKA and Rt TMA Right stump ulcers Arterial Doppler with moderate to severe stenosis Continue aspirin and Plavix COPD without exacerbation PRN DuoNebs Coronary artery disease with stent Aspirin and atorvastatin Hold Plavix pending surgery evaluation Hypertension On amlodipine - Advance Directives Does patient have a Living Will: No Does patient have a Durable POA for Healthcare: No
[2023-06-21] MEDS ORDERED: VANCOMYCIN 750 MG in NA CHLORIDE 0.9% 250 ML IVPB ONE (06:00)
[2023-06-21 06:43] VITALS: BMI 30.3
[2023-06-21] MEDS ORDERED: VANCOMYCIN 1 GM in NA CHLORIDE 0.9% 250 ML IVPB ONE (07:30)
[2023-06-21] MEDS ORDERED: CEFEPIME 2 GM VIAL ONE (08:00)
[2023-06-21] MEDS ORDERED: levETIRAcetam 500 MG TAB ONE (08:00)
[2023-06-21] MEDS ORDERED: HEPARIN 5000 UNIT/ML 1 ML VIAL ONE (08:01)
[2023-06-21] MEDS ORDERED: NA CHLORIDE 0.9% 100 ML ONE (08:01)
[2023-06-21] MEDS: HEPARIN 5000 UNIT/ML 1 ML VIAL SQ SCH ×2 (08:14→20:05)
[2023-06-21] MEDS: levETIRAcetam 500 MG TAB PO SCH ×2 (08:14→20:05)
[2023-06-21 08:41] LABS: SARS-CoV-2 Antigen Rapid Res Negative (Negative)
[2023-06-21] MEDS: CEFEPIME 2 GM in NA CHLORIDE 0.9% 100 ML IV SCH ×2 (09:00→20:06)
--- NOTE | 2023-06-21 10:40 | RAD REPORT ---
EXAM DESCRIPTION: RAD - Foot Right 3 View - 06/21/2023 2:47 am CLINICAL HISTORY: 57 years Male eval for osteomyelitis TECHNIQUE: Three x-ray views of the right foot were performed on 06/21/2023 at 2:38 AM. COMPARISON: No prior studies were available for comparison. FINDINGS: There are remote postsurgical changes consistent with transmetatarsal amputation of all di gits of the right foot. There is no evidence of acute fracture or dislocation. No pathologic lytic or sclerotic bone lesions are identified. On the oblique view there does appear to be cortical thinning and irregularity along the distal aspects of the remaining metatarsals. There is a small plantar c alcaneal spur. Bone mineralization is decreased. There is a soft tissue defect along the anterolateral aspect of the right foot. No definite subcutane ous emphysema is identified. IMPRESSION: 1. Remote transmetatarsal amputation of all digits of the right foot. 2. Soft tissue defect along the anterolateral aspect of the right foot. 3. On the oblique view there does appear to be cortical thinning and irregularity along the distal aspects of the residual metatarsals. Osteomyelitis is difficult to exclude on this examination. Electronically signed by: Melody Londono DO 06/21/2023 03:38 AM INSTRUCTIONAL COACH Due to temporary technical issues with the PACS/Fluency reporting system, reports are being signed by the in house radiologist without review as a courtesy to ensure prompt reporting. The interpreting r adiologist is fully responsible for the content of the report.
[2023-06-21] MEDS ORDERED: ACETAMINOPHEN 325 MG TABLET ONE ×2 (11:38→17:00)
[2023-06-21] MEDS: ACETAMINOPHEN 325 MG TABLET PO PRN ×2 (11:40→17:02)
[2023-06-21] MEDS ORDERED: NA CHLORIDE 0.9% 1,000 ML ONE (13:11)
--- NOTE | 2023-06-21 14:26 | RAD REPORT ---
EXAM DESCRIPTION: RAD - Chest Single View - 06/21/2023 2:47 am CLINICAL HISTORY: The patient is 57 years old and is Male; CHEST PAIN TECHNIQUE: Frontal view of the chest. COMPARISON: No relevant prior studies available. FINDINGS: Lungs: Unremarkable. No consolidation. Pleural space: Unremarkable. No pneumothorax. Heart: Unremarkable. Mediastinum: Unremarkable. Normal mediastinal contour. Bones/joints: No acute findings. IMPRESSION: No acute findings in the chest. Electronically signed by: Jaciel Franco MD 06/21/2023 03:25 AM ELECTROMECHANICAL ASSEMBLY TECHNICIAN Due to temporary technical issues with the PACS/Fluency reporting system, reports are being signed by the in house radiologist without review as a courtesy to ensure prompt reporting. The interpreting r adiologist is fully responsible for the content of the report.
--- NOTE | 2023-06-21 14:27 | RAD REPORT ---
EXAM DESCRIPTION: US - Lower Extremity Artery Uni Ltd - 06/21/2023 2:59 am CLINICAL HISTORY: Male, 57 years old, ischemia COMPARISON: None. TECHNIQUE: Grayscale and color/spectral Doppler ultrasound of the right lower extremity. FINDINGS: Several arterial branches were not evaluated. Technologist exam comments are not available . Maximal velocities (cm/s): Common femoral: 93 Deep femoral: Not measured Superficial femoral: 140 Popliteal: 41 Anterior tibial: Not measured Posterior tibial: 20 Peroneal: Not measured Dorsalis pedis: 21 Other findings: Monophasic waveforms throughout, with spectral broadening in the distal SFA and dista lly. IMPRESSION: Monophasic waveforms throughout the assessed right lower extremity. Peak systolic veloci ty of 140 cm/s in the superficial femoral artery. Findings consistent with moderate to severe stenosi s. Electronically signed by: Harish Garner MD 06/21/2023 04:27 AM SECURITY ALARM INSTALLER Due to temporary technical issues with the PACS/Fluency reporting system, reports are being signed by the in house radiologist without review as a courtesy to ensure prompt reporting. The interpreting r adiologist is fully responsible for the content of the report.
[2023-06-21] MEDS ORDERED: VANCOMYCIN 1 GM in NA CHLORIDE 0.9% 250 ML IVPB SCH (15:00)
--- NOTE | 2023-06-21 16:25 | EKG ---
Test Date: 2023-06-21 Test Time: 02:56:11 Stain Dipper: TAMAR MEASUREMENT RESULTS: Intervals: Rate: 82 NH: 156 QRSD: 90 QT: 406 QTc: 474 [place]: P: 65 NH: 156 QRS: 58 T: 69 INTERPRETIVE STATEMENTS: Normal sinus rhythm Normal ECG Compared to ECG 02/27/2022 18:05:43 No significant changes Electronically Signed On 06-21-23 16:24:54 DIRECTOR SECURITY RISK MANAGEMENT by Jose Angel Wharton
[2023-06-21] MEDS: VANCOMYCIN 1.75 GM in NA CHLORIDE 0.9% 500 ML IVPB SCH (18:00)
[2023-06-21] MEDS: OXYCODONE HCL 5 MG TAB PO PRN (19:44)
[2023-06-21] MEDS ORDERED: NA CHLORIDE 0.9% 500 ML ONE (19:50)
[2023-06-21 21:35] VITALS: O2SAT 97
[2023-06-22] MEDS: OXYCODONE HCL 5 MG TAB PO PRN ×2 (02:01→21:05)
[2023-06-22] MEDS ORDERED: VANCOMYCIN 1 GM/VIAL ONE (05:09)
[2023-06-22] MEDS ORDERED: NA CHLORIDE 0.9% 500 ML ONE (05:10)
[2023-06-22] MEDS: VANCOMYCIN 1.75 GM in NA CHLORIDE 0.9% 500 ML IVPB SCH (05:24)
[2023-06-22 06:14] LABS: Absolute Lymphocytes (CBC) 1.5 K/uL (0.7-4.9); Hematocrit 35.5 % (39.6-49.0); MCV 96.3 fL (80-100); MPV 6.7 fL (7.6-11.3); Platelets 201 thou/uL (152-406); RBC Red Blood Cell Count 3.69 M/uL (4.33-5.43)
[2023-06-22 06:28] LABS: Specific Gravity 1.011 (1.005-1.030); Urine Bilirubin NEGATIVE (Negative); Urine Blood Negative (Negative); Urine Clarity Clear (Clear); Urine Color Colorless (Yellow); Urine Glucose NEGATIVE (Negative); Urine Protein NEGATIVE (Negative); Urine Urobilinogen Normal (Normal)
[2023-06-22 06:35] LABS: Albumin 2.2 g/dL (3.4-5.0); Bilirubin Total 0.3 mg/dL (0.2-1.0); Magnesium 2.3 mg/dL (1.6-2.4); Phosphorus 2.8 mg/dL (2.5-4.9); Potassium 3.9 mEq/L (3.5-5.1); Protein, Total 7.4 g/dL (6.4-8.2)
[2023-06-22] MEDS: levETIRAcetam 500 MG TAB PO SCH ×2 (08:37→21:05)
[2023-06-22] MEDS: HEPARIN 5000 UNIT/ML 1 ML VIAL SQ SCH ×2 (08:37→21:05)
[2023-06-22] MEDS: CEFEPIME 2 GM in NA CHLORIDE 0.9% 100 ML IV SCH ×2 (08:56→21:06)
[2023-06-22] MEDS: HYDROMORPHONE HCL 0.5 MG/0.5 ML INJ IV PRN ×3 (10:19→22:32)
--- NOTE | 2023-06-22 15:53 | P.CNS ---
Date of Consult: 06/20/23 Chief Complaint: Right leg cellulitis History of Present Illness: case of 57y/owith h/o PVDm with cellulitis of right leg. Pt has h/o transmet foot amputation with chronic foot ulcers with no specific actual treatment. PT also has history of Left BKA. Pt noticed redness over the leg and came for evaluation. Allergies No Known Allergies Allergy (Verified 12/28/21 01:33) Home Medications: Amlodipine [Norvasc*] 10 mg PO DAILY 06/22/23 Aspirin [Aspirin EC 81 MG] 81 mg PO DAILY 06/22/23 Atorvastatin Calcium 40 mg PO DAILY 06/22/23 Buspirone HCl 2 tab PO BID 06/22/23 Clopidogrel Bisulfate [Plavix*] 75 mg PO DAILY 06/22/23 Escitalopram Oxalate 20 mg PO DAILY 06/22/23 Levetiracetam [Keppra] 1.5 tab PO BID 06/22/23 Multivit-Min/Iron/Folic Acid/K [Multi-Day Plus Minerals Tablet] 1 tab PO DAILY 06/22/23 Sertraline [Zoloft*] 100 mg PO DAILY 06/22/23 methocarbamoL [Methocarbamol] 500 mg PO TID 06/22/23 - Past Medical/Surgical History Diabetic: No -: HTN -: CHF, diastolic dysfunction -: COPD -: CAD -: PVD -: Left & right partial foot amputation -: History of osteomyelitis -: History of drug use -: Alcohol abuse -: Tobacco abuse -: GERD -: Rt great toe & 2nd toe amputated-Dec 2015 -: Left partial foot amputation-January 2019 -: right partial foot amputation Psychosocial/ Personal History: Patient currently lives in a trailer - Family History Father Medical History: Cancer Mother Medical History: Cancer - Social History Smoking Status: Current every day smoker Alcohol use: No CD- Drugs: No Caffeine use: No Place of Residence: Home Review of Systems Respiratory: Unremarkable Gastrointestinal: Unremarkable Musculoskeletal: Unremarkable Integumentary: As per HPI Neurological: Other (peripheral neuropathy) Physical Examination Temp Pulse Resp BP Pulse Ox 98.0 F 74 17 144/67 H 96 06/22/23 12:00 06/22/23 12:00 06/22/23 12:00 06/22/23 12:00 06/22/23 12:00 General: Alert, In no apparent distress, Oriented x3, Cooperative HEENT: PERRLA, EOMI Neck: Supple Gastrointestinal: Soft and benign, No rebound, No guarding Musculoskeletal: Erythema, Tenderness, Warmth Integumentary: Tenderness/swelling, Erythema, Warmth, Pressure ulcer, Arterial ulcer Neurological: Normal speech Conclusions/Impression: santyl wet to dry vascular work up to see the chance of healing ulcers and /or osteo. off loading
[2023-06-22] MEDS: COLLAGENASE 30 GM OINTMENT TOP SCH (17:15)
--- NOTE | 2023-06-22 20:03 | PN ---
Date of Progress Note: 06/22/2023 Reason For Service: Followup for a right leg cellulitis. Subjective: This is the case of a male who came to us with the peripheral vascular disease, cellulit is of the right leg region. He has 2 large ulcers in the metatarsal region, lateral and medial. Shadia ashley like it has been there for a long time. Cannot rule out osteomyelitis, but he comes with redness on the leg. Started on IV antibiotics. He feels better. Objective: Chest: Clear. Abdomen: Soft and depressible. Extremities: Once again, no dorsalis pedis pulses. Transmetatarsal amputation in the past with nonh ealing surgical wounds. Plan: He has been treated for the cellulitis. Once cellulitis improves, Vascular workup will help t o determine if his ulcers have a chance for healing or if cellulitis has a chance of healing. If not , he may have to have the same decision he made for the opposite leg which is a below knee or above k nee, depends on what the Vascular workup say. In the meantime, if he gets discharged from this insti tution, we have advised him the importance of coming [facility]. CASEY/RENATO Voice ID: [id number] Report ID: [id number]
[2023-06-23] MEDS: OXYCODONE HCL 5 MG TAB PO PRN ×2 (03:15→08:29)
[2023-06-23] MEDS: HYDROMORPHONE HCL 0.5 MG/0.5 ML INJ IV PRN ×2 (04:37→09:57)
[2023-06-23] MEDS ORDERED: VANCOMYCIN 1.75 GM in NA CHLORIDE 0.9% 500 ML IVPB SCH (06:00)
[2023-06-23] MEDS: CEFEPIME 2 GM in NA CHLORIDE 0.9% 100 ML IV SCH (08:29)
[2023-06-23] MEDS: levETIRAcetam 500 MG TAB PO SCH (08:29)
[2023-06-23] MEDS: HEPARIN 5000 UNIT/ML 1 ML VIAL SQ SCH (08:29)
[2023-06-23] MEDS: COLLAGENASE 30 GM OINTMENT TOP SCH (08:39)
--- NOTE | 2023-06-23 09:01 | P.PN ---
Subjective Date of Service: 06/23/23 Chief Complaint: Right leg cellulitis no reported fever, RLE pain 8/10 pain. prn analgesic increaesed percocet 7.5 q6 prn - Physical Exam General: Alert, In no apparent distress, Oriented x3 HEENT: Atraumatic, Normocephalic, PERRLA, Mucous membr. moist/pink Neck: Supple, JVD not distended Respiratory: Clear to auscultation bilaterally, Normal air movement Cardiovascular: Regular rate/rhythm Gastrointestinal: Normal bowel sounds, Soft and benign, Non-distended, No tenderness Musculoskeletal: Swelling, Erythema (3 cm ulcers on anterior-lateral and posterior medial aspects of the stump), Warmth Neurological: Normal speech, Sensation intact Review of Systems per HPI Physical Examination - Vital Signs Temperature: 98.7 F Blood Pressure: 141/72 Pulse: 82 Respirations: 15 Pulse Ox (%): 98 Assessment And Plan - Plan - Plan Right lower extremity cellulitis Possible osteomyelitis Intractable RLE pain secondard severe PAD IV antibiotics with vancomycin and cefepime Difficult to exclude osteomyelitis on x-ray foot Follow-up blood cultures PRN analgesics, prn stool softeners wound care consult General surgery Extremities: Once again, no dorsalis pedis pulses. Transmetatarsal amputation in the past with nonhealing surgical wounds. Plan: He has been treated for the cellulitis. Once cellulitis improves, Vascular workup will help to determine if his ulcers have a chance for healing or if cellulitis has a chance of healing. If not, he may have to have the same decision he made for the opposite leg which is a below knee or above knee, depends on what the Vascular workup say. In the meantime, if he gets discharged from this institution, we have advised him the importance of coming to the [facility] weekly. DopplerIMPRESSION: Monophasic waveforms throughout the assessed right lower extremity. Peak systolic velocity of 140 cm/s in the superficial femoral artery. Findings consistent with moderate to severe stenosis Foot x-ray IMPRESSION: 1. Remote transmetatarsal amputation of all digits of the right foot. 2. Soft tissue defect along the anterolateral aspect of the right foot. 3. On the oblique view there does appear to be cortical thinning and irre gularity along the distal aspects of the residual metatarsals. Osteomyelitis is difficult to exclude on this examination. Seizure disorder S/p IV Keppra load for breakthrough seizure Resume 1 g Keppra twice a day Peripheral artery disease s/p Lt BKA and Rt TMA Right stump ulcers Arterial Doppler with moderate to severe stenosis Continue aspirin and Plavix COPD without exacerbation PRN DuoNebs Coronary artery disease with stent Aspirin and atorvastatin Hold Plavix pending surgery evaluation Hypertension On amlodipine Full code Diet DVT Disposition plan longterm facility vs Home w HH, w op weekly wound care Discharge Plan: Home - Code Status/Comfort Care Code Status: Full Code Critical Care: No Time Spent Managing PTS Care (In Minutes): 35
[2023-06-23] MEDS ORDERED: HYDROCODONE/APAP 7.5/325 MG TAB PO PRN (12:00)
[2023-06-23] MEDS ORDERED: SENOSIDES 8.6 MG TAB PO PRN (12:03)
[2023-06-23 15:56] VITALS: BP 141/72; TEMP 98.7
[2023-06-23] MEDS ORDERED: COLLAGENASE 30 GM OINTMENT TOP SCH (16:00)
== END 2023-06-23 14:10 | disposition home health service (06) | DRG 565 ==
LOC: ER 02:18 → ERHOLD 05:03 → 2ND 17:32
PROVIDERS: ADMIT Internal Medicine; ATTEND Hospitalist
DX: T87.43 Infection of amputation stump, right lower extremity (principal); I50.32 Chronic diastolic (congestive) heart failure; L03.115 Cellulitis of right lower limb; L97.819 Non-pressure chronic ulcer of other part of right lower leg with unspecified severity; M86.8X6 Other osteomyelitis, lower leg; I11.0 Hypertensive heart disease with heart failure; I73.9 Peripheral vascular disease, unspecified; J44.9 Chronic obstructive pulmonary disease, unspecified; K21.9 Gastro-esophageal reflux disease without esophagitis; G40.909 Epilepsy, unspecified, not intractable, without status epilepticus; I25.10 Atherosclerotic heart disease of native coronary artery without angina pectoris; F17.210 Nicotine dependence, cigarettes, uncomplicated; I25.2 Old myocardial infarction; Z95.5 Presence of coronary angioplasty implant and graft; Z11.52 Encounter for screening for COVID-19; Z79.02 Long term (current) use of antithrombotics/antiplatelets; Z79.82 Long term (current) use of aspirin; Z79.899 Other long term (current) drug therapy; Z89.612 Acquired absence of left leg above knee; Z89.421 Acquired absence of other right toe(s); Y84.8 Other medical procedures as the cause of abnormal reaction of the patient, or of later complication, without mention of misadventure at the time of the procedure
CPT/HCPCS: 36415; 71045; 80048; 80053; 80076; 80202; 81003; 83605; 83735; 83880; 84100; 84484; 85025; 85610; 87040; 87811; 93005; 93926; 96365; 96366; 96368; 96375; 99285; J0692; J1170; J1644; J1953; J2405; J2543; J2765; J3590; J7030; J7040; J7050

== ENCOUNTER 2023-06-30 12:55 | Inpatient (IN) | payer OTHER ==
[2023-06-30 13:27] LABS: Absolute Lymphocytes (CBC) 1.1 K/uL (0.7-4.9); Lymphocytes % 9.3 % (15.3-44.8); Platelets 245 thou/uL (152-406); RBC Red Blood Cell Count 4.28 M/uL (4.33-5.43)
[2023-06-30] MEDS: levETIRAcetam 1,000 MG in NA CHLORIDE 0.9% 100 ML IV ONE (13:30)
[2023-06-30] MEDS ORDERED: LORazepam 2 MG/ML VIAL ONE (13:34)
--- NOTE | 2023-06-30 13:35 | RAD REPORT ---
EXAM DESCRIPTION: CT - Head Brain Wo Cont - 06/30/2023 1:24 pm CLINICAL HISTORY: AMS, seizures Drowsiness, seizure COMPARISON: Head Brain Wo Cont dated 01/27/2022; Head Brain Wo Cont dated 02/14/2021 TECHNIQUE: All CT scans are performed using dose optimization technique as appropriate and may inclu de automated exposure control or mA/KV adjustment according to patient size. FINDINGS: No intracranial hemorrhage, hydrocephalus or extra-axial fluid collection.Mild generalized brain atrophy is present with mild periventricular and deep white matter chronic microvascular ische javier changes.No areas of brain edema or evidence of midline shift. The paranasal sinuses and mastoids are clear. The calvarium is intact. IMPRESSION: No acute intracranial abnormality.
[2023-06-30 13:51] LABS: ALT/SGPT 34 U/L (16-61); AST/SGOT 29 U/L (15-37); Albumin 2.9 g/dL (3.4-5.0); Alkaline Phosphatase 89 U/L (45-117); BUN Blood Urea Nitrogen 8 mg/dL (7-18); Bicarbonate 24 mEq/L (21-32); Bilirubin Direct 0.1 mg/dL (0-0.2); Bilirubin Indirect, Calculated 0.1 mg/dL (0.2-0.8); Bilirubin Total 0.2 mg/dL (0.2-1.0); Glomerular Filtration Rate 96 ml/min (=/>90); Glucose Level 135 mg/dL (74-106); Potassium 4.3 mEq/L (3.5-5.1); Protein, Total 8.5 g/dL (6.4-8.2); Sodium Level 135 mEq/L (136-145); Troponin High Sensitivity 13.9 pg/mL (<58.9)
[2023-06-30 14:16] LABS: Magnesium 2.1 mg/dL (1.6-2.4); Phosphorus 3.2 mg/dL (2.5-4.9)
--- NOTE | 2023-06-30 14:24 | EDPHYS ---
Physician Documentation [facility] Name: Karlos Leblanc Age: 57 yrs Sex: Male : 1965 Arrival Date: 06/30/2023 Time: 12:55 Bed 7 Private MD: ED Physician Kyle Kennedy HPI: 06/30 13:11 This 57 yrs old Male presents to ER via EMS with complaints of seizure, altered mental sp3 status. 13:11 . 57-year-old male with history of COPD, DE, seizures, hypertension, prior alcohol sp3 abuse now presents to the ED status post 2 seizures at home as documented by the home health nurse. EMS was initially called but then did not transport and then called again after the second seizure with a found the patient at the end of the seizure and then subsequent postictal period. Patient has had decreased mental status for them. Blood sugar for EMS was 100. No signs of trauma noted. Review of systems, history and physical limited secondary to altered mental status.. Historical: - Allergies: 13:09 NKDA; hb - PMHx: 13:09 Chronic obstructive lung disease; Myocardial infarction; Seizures; Hypertension; hb - PSHx: 13:09 cardiac stents; Left Leg Amputation (below the knee) (c ); Right toes amputation (c ); hb - Immunization history:: Adult Immunizations up to date. - Social history:: Smoking status: Patient denies any tobacco usage or history of. Patient/guardian denies using alcohol. ROS: 13:13 Unable to obtain ROS due to altered mental status, sp3 Exam: 13:13 Head/Face: Normocephalic, atraumatic. Eyes: Pupils equal round and reactive to light, sp3 extra-ocular motions intact. Lids and lashes normal. Conjunctiva and sclera are non-icteric and not injected. Cornea within normal limits. Periorbital areas with no swelling, redness, or edema. Neck: Trachea midline, no thyromegaly or masses palpated, and no cervical lymphadenopathy. Supple, full range of motion without nuchal rigidity, or vertebral point tenderness. No Meningismus. Chest/axilla: Normal chest wall appearance and motion. Nontender with no deformity. No lesions are appreciated. Cardiovascular: Regular rate and rhythm with a normal S1 and S2. No gallops, murmurs, or rubs. Normal PMI, no JVD. No pulse deficits. Respiratory: Lungs have equal breath sounds bilaterally, clear to auscultation and percussion. No rales, rhonchi or wheezes noted. No increased work of breathing, no retractions or nasal flaring. Abdomen/GI: Soft, non-tender, with normal bowel sounds. No distension or tympany. No guarding or rebound. No evidence of tenderness throughout. Skin: Warm, dry with normal turgor. Normal color with no rashes, no lesions, and no evidence of cellulitis. 13:13 Neuro: Patient may still be postictal. However patient withdraws to painful stimuli. No gross deficits noted however patient's mental status is not at baseline. Remainder of neuroexam unable to be performed., 13:24 ECG was reviewed by the Attending Physician. EKG demonstrates sinus tachycardia at 106 sp3 bpm with normal intervals, normal QRS, normal axis, normal ST's ST changes without evidence of acute ischemia. Vital Signs: 13:06 BP 166 / 82; Pulse 94; Resp 16; Temp 98.9(A); Pulse Ox 96% on R/A; hb 13:22 BP 166 / 79; ld1 14:10 BP 143 / 88; Pulse 102; Resp 17; Pulse Ox 97% ; tl4 14:30 BP 165 / 91; Pulse 121; Resp 18; Pulse Ox 100% on R/A; ld1 MDM: 13:00 Patient medically screened. sp3 13:14 Data reviewed: vital signs, nurses notes, EMS record, old medical records, lab test sp3 result(s), EKG, radiologic studies. ED course: 57-year-old male with altered mental status and PMH above. Differential diagnosis includes seizure, intracranial pathology including bleed, EtOH induced seizure, EtOH abuse, drug abuse, electrolyte abnormality, ACS, among others. Workup will include CT scan of the head, chest x-ray, EKG, laboratory values along with UDS. Disposition pending workup and patient course.. 13:34 ED course: Patient having recurrent seizure in the ED. 2 mg of Ativan have been sp3 ordered.. 14:19 ED course: Patient still not at baseline mental status. Laboratory values reviewed. sp3 Will place patient in ICU for general observation and seizure precautions.. 14:22 ED course: Will defer antibiotics to inpatient team who is here at bedside seeing sp3 patient.. 06/30 13:07 Order name: Acetaminophen; Complete Time: 14:14 sp3 06/30 13:07 Order name: Basic Metabolic Panel; Complete Time: 14:14 sp3 06/30 13:07 Order name: CBC with Diff; Complete Time: 13:39 sp3 06/30 13:07 Order name: ETOH Level; Complete Time: 13:47 sp3 06/30 13:07 Order name: Hepatic Function; Complete Time: 14:14 sp3 06/30 13:07 Order name: PT-INR 3 06/30 13:07 Order name: Salicylate; Complete Time: 14:14 sp3 06/30 13:07 Order name: Urine Drug Screen 3 06/30 13:07 Order name: Troponin High Sensitivity; Complete Time: 14:14 3 06/30 13:41 Order name: Magnesium; Complete Time: 14:21 pa1 06/30 13:41 Order name: Phosphorus; Complete Time: 14:21 pa1 06/30 15:01 Order name: Blood Culture Adult (2) pa1 06/30 15:01 Order name: Lactate w/ 2H reflex if indic. la1 06/30 13:07 Order name: CT Head Brain wo Cont; Complete Time: 13:39 3 06/30 13:07 Order name: EKG; Complete Time: 13:08 3 06/30 15:05 Order name: CONS Physician Consult [facility] 06/30 13:07 Order name: EKG - Nurse/Tech; Complete Time: 13:18 3 06/30 13:07 Order name: IV Saline Lock; Complete Time: 13:21 3 06/30 13:07 Order name: Labs collected and sent; Complete Time: 13:21 3 06/30 13:47 Order name: Seizure Precautions; Complete Time: 14:13 sp3 Administered Medications: 13:40 Drug: Ativan IVP 2 mg IVP once Route: IVP; Site: right forearm; tl4 14:09 Follow up: Response: No adverse reaction tl4 13:41 Drug: Keppra IV 1000 mg IV at calculated rate once Route: IV; Rate: calculated rate; tl4 Infused Over: 15 mins; Site: right forearm; 14:09 Follow up: Response: No adverse reaction; IV Status: Completed infusion; IV Intake: tl4 100ml Disposition Summary: 06/30/23 14:23 Hospitalization Ordered Notes: Hospitalization Status: Inpatient Admission sp3 Provider: Dionicio Guerin sp3 Location: Intensive Care Unit sp3 Condition: Stable sp3 Problem: an acute exacerbation sp3 Symptoms: have worsened sp3 Bed/Room Type: Standard sp3 Room Assignment: 4-(06/30/23 15:08) eb Diagnosis - Altered mental status, multiple seizures sp3 Forms: - Medication Reconciliation Form sp3 - SBAR form sp3 - Leadership Thank You Letter sp3 Signatures: Dispatcher [employer] EDMS Jose Cochran, FINANCIAL MANAGEMENT-C FINANCIAL MANAGEMENT-Cla1 Latia Haney, RN RN Mary Paiz Lauren, RN RN ld1 Kyle Kennedy MD MD sp3 Tate Manriquez RN RN tl4 Corrections: (The following items were deleted from the chart) 15:08 14:23 sp3 eb
--- NOTE | 2023-06-30 14:24 | ER ---
Nurse's Notes [facility] Mark Name: Karlos Leblanc Age: 57 yrs Sex: Male : 1965 Arrival Date: 06/30/2023 Time: 12:55 Bed 7 Private MD: Diagnosis: Altered mental status, multiple seizures Presentation: 06/30 13:06 Chief complaint: EMS states: Home health called for witnessed seizure this morning, pt hb refused transport, was called out again by home health for witness seizure. VS WNL, BGL 100, pt postictal. Smells of ETOH. Coronavirus screen: At this time, the client does not indicate any symptoms associated with coronavirus-19. Ebola Screen: No symptoms or risks identified at this time. Initial Sepsis Screen: Does the patient meet any 2 criteria? No. Patient's initial sepsis screen is negative. Does the patient have a suspected source of infection? No. Patient's initial sepsis screen is negative. Risk Assessment: Do you want to hurt yourself or someone else? Patient reports no desire to harm self or others. Onset of symptoms was June 30, 2023. 13:06 Method Of Arrival: EMS: [facility] 13:06 Acuity: KENIA 2 hb Historical: - Allergies: 13:09 NKDA; hb - PMHx: 13:09 Chronic obstructive lung disease; Myocardial infarction; Seizures; Hypertension; hb - PSHx: 13:09 cardiac stents; Left Leg Amputation (below the knee) (c ); Right toes amputation (c ); hb - Immunization history:: Adult Immunizations up to date. - Social history:: Smoking status: Patient denies any tobacco usage or history of. Patient/guardian denies using alcohol. Screenin:22 [facility] ED Fall Risk Assessment (Adult) History of falling in the last 3 months, ld1 including since admission No falls in past 3 months (0 pts). Abuse screen: Denies threats or abuse. Denies injuries from another. Nutritional screening: No deficits noted. Tuberculosis screening: No symptoms or risk factors identified. Assessment: 13:22 General: Appears in no apparent distress. comfortable, Behavior is calm, cooperative, ld1 appropriate for age. Pain: Denies pain. Neuro: Level of Consciousness is obeys commands, lethargic, Oriented to person, place, Appropriate for age. Cardiovascular: Capillary refill < 3 seconds Patient's skin is warm and dry. Cardiovascular: Rhythm is sinus bradycardia. Respiratory: Airway is patent Respiratory effort is even, unlabored. GI: Abdomen is round non-distended. : No signs and/or symptoms were reported regarding the genitourinary system. EENT: No signs and/or symptoms were reported regarding the EENT system. Derm: No signs and/or symptoms reported regarding the dermatologic system. Musculoskeletal: No signs and/or symptoms reported regarding the musculoskeletal system. 15:31 Reassessment: Patient appears in no apparent distress at this time. No changes from ld1 previously documented assessment. Patient and/or family updated on plan of care and expected duration. Pain level reassessed. Patient is alert, oriented x 3, equal unlabored respirations, skin warm/dry/pink. Vital Signs: 13:06 BP 166 / 82; Pulse 94; Resp 16; Temp 98.9(A); Pulse Ox 96% on R/A; hb 13:22 BP 166 / 79; ld1 14:10 BP 143 / 88; Pulse 102; Resp 17; Pulse Ox 97% ; tl4 14:30 BP 165 / 91; Pulse 121; Resp 18; Pulse Ox 100% on R/A; ld1 ED Course: 12:58 Patient arrived in ED. eb 12:59 Kyle Kennedy MD is Attending Physician. sp3 13:09 Triage completed. hb 13:09 Arm band placed on left wrist. hb 13:21 Lise Zheng, RN is Primary Nurse. ld1 13:21 EKG done, by ED staff, reviewed by Kyle Kennedy MD. em1 13:21 Inserted saline lock: 20 gauge in right wrist, using aseptic technique. Blood collected.ld1 13:22 Patient has correct armband on for positive identification. Placed in gown. Bed in low ld1 position. Call light in reach. Side rails up X2. cardiac monitor technician on. Pulse ox on. NIBP on. Door closed. Noise minimized. Warm blanket given. 13:22 No provider procedures requiring assistance completed. ld1 13:26 CT Head Brain wo Cont In Process Unspecified. EDMS 14:22 Dionicio Guerin MD is Hospitalizing Provider. sp3 15:30 Lactate w/ 2H reflex if indic. Sent. tl4 15:30 Blood Culture Adult (2) Sent. tl4 15:32 Patient admitted, IV remains in place. ld1 Administered Medications: 13:40 Drug: Ativan IVP 2 mg IVP once Route: IVP; Site: right forearm; tl4 14:09 Follow up: Response: No adverse reaction tl4 13:41 Drug: Keppra IV 1000 mg IV at calculated rate once Route: IV; Rate: calculated rate; tl4 Infused Over: 15 mins; Site: right forearm; 14:09 Follow up: Response: No adverse reaction; IV Status: Completed infusion; IV Intake: tl4 100ml Medication: 13:22 VIS not applicable for this client. ld1 Intake: 14:09 IV: 100ml; Total: 100ml. tl4 Outcome: 14:23 Decision to Hospitalize by Provider. sp3 15:31 Admitted to ICU accompanied by nurse, via stretcher, room icu 5, Report called to ld1 TAVO Connolly 15:31 Condition: stable 15:31 Instructed on the need for admit, 15:32 Patient left the ED. ld1 Signatures: Dispatcher [employer] Jay Barraza em1 Latia Haney, RN RN Mary Paiz Lauren, RN RN ld1 Kyle Kennedy MD MD sp3 Tate Manriquez RN RN tl4
[2023-06-30 15:06] LABS: Protime INR 1.07
[2023-06-30] MEDS ORDERED: NA CHLORIDE 0.9% 250 ML ONE (15:09)
[2023-06-30] MEDS ORDERED: VANCOMYCIN 1 GM/VIAL ONE (15:09)
[2023-06-30] MEDS ORDERED: NA CHLORIDE 0.9% 100 ML ONE ×3 (15:10→20:56)
[2023-06-30] MEDS ORDERED: CEFEPIME 1 GM/VIAL ONE ×2 (15:10→20:51)
[2023-06-30] MEDS ORDERED: ONDANSETRON 4 MG/2 ML VIAL IV PRN (15:35)
[2023-06-30] MEDS ORDERED: LORazepam 2 MG/ML VIAL IV PRN (15:35)
--- NOTE | 2023-06-30 15:37 | P.HP ---
Certification for Inpatient Patient admitted to: Inpatient With expected LOS: >2 Midnights Patient will require the following post-hospital care: None Practitioner: I am a practitioner with admitting privileges, knowledge of patient current condition, hospital course, and medical plan of care. Services: Services provided to patient in accordance with Admission requirements found in Title 42 Section 412.3 of the Code of Federal Regulations <Jose Cochran - Last Filed: 06/30/23 15:23> Patient History Date of Service: 06/30/23 Reason for admission: Seizures, lower extremity cellulitis History of Present Illness: 57-year-old male with history of seizure disorder, CAD, COPD, hypertension, PVD status post left BKA and right TMA presented to the emergency department with chief complaint of seizure. Apparently home health nurse was visiting him and found him to be having a seizure, EMS was called and evaluated the patient he declined transfer to the hospital that time. He had a second seizure, EMS was called back out and then transferred him to the hospital. Upon arrival to the emergency department patient was evaluated in the emergency department during his stay in the emergency department he had a third witnessed seizure and was given 2 mg of Ativan IV. Of note he was admitted to the hospital on 06/21/2023 and subsequently discharged on 06/23/2023 for right lower extremity stump cellulitis and seizures. Patient was treated with IV antibiotics during hospitalization and discharged on oral antibiotics. Per chart review patient has not had prescription for Keppra since December 2022. He was taking 1500 mg twice daily at that time. Wounds to left lower extremity are present with surrounding erythema extending up the leg concerning for possible infection, also noted to have leukocytosis and tachycardia. SIRS anterior met blood cultures lactate also obtained in ED. Started on antibiotics. - Past Medical/Surgical History Diabetic: No -: HTN -: CHF, diastolic dysfunction -: COPD -: CAD -: PVD -: Left & right partial foot amputation -: History of osteomyelitis -: History of drug use -: Alcohol abuse -: Tobacco abuse -: GERD -: Rt great toe & 2nd toe amputated-Dec 2015 -: Left partial foot amputation-January 2019 -: right partial foot amputation Psychosocial/ Personal History: Patient currently lives in a trailer - Family History Father -: Cancer Mother -: Cancer - Social History Alcohol use: No CD- Drugs: No Caffeine use: No Place of Residence: Home <Jose Cochran Hermes Morrison - Last Filed: 06/30/23 15:23> Date of Service: 06/30/23 <Dionicio Guerin - Last Filed: 06/30/23 16:09> Allergies No Known Allergies Allergy (Verified 12/28/21 01:33) Home Medications: Amlodipine [Norvasc*] 10 mg PO DAILY 06/22/23 Aspirin [Aspirin EC 81 MG] 81 mg PO DAILY 06/22/23 Atorvastatin Calcium 40 mg PO DAILY 06/22/23 Buspirone HCl 2 tab PO BID 06/22/23 Clopidogrel Bisulfate [Plavix*] 75 mg PO DAILY 06/22/23 Escitalopram Oxalate 20 mg PO DAILY 06/22/23 Levetiracetam [Keppra] 1.5 tab PO BID 06/22/23 Multivit-Min/Iron/Folic Acid/K [Multi-Day Plus Minerals Tablet] 1 tab PO DAILY 06/22/23 Sertraline [Zoloft*] 100 mg PO DAILY 06/22/23 methocarbamoL [Methocarbamol] 500 mg PO TID 06/22/23 Collagenase [Santyl Ointment*] 1 appl TOP DAILY #1 tube 06/23/23 Hydrocodone 7.5/APAP 325 [[place] 7.5/325 mg*] 1 tab PO Q6H PRN #20 tab 06/23/23 Review of Systems 10-point ROS is otherwise unremarkable Neurological: Seizures, Other <Jose Cochran Hermes Morrison - Last Filed: 06/30/23 15:23> Physical Examination - Physical Exam General: Alert, In no apparent distress, Oriented x3, Other (drowsy) HEENT: Atraumatic, PERRLA, Mucous membr. moist/pink Neck: Supple, 2+ carotid pulse no bruit, No LAD Respiratory: Clear to auscultation bilaterally, Normal air movement Cardiovascular: Regular rate/rhythm, Normal S1 S2 Gastrointestinal: Normal bowel sounds, No tenderness Musculoskeletal: No tenderness, Other (left BKA, Rt TMA) Integumentary: Other (Ulcerations with surrounding erythmea noted to RLE distal stump/TMA) Neurological: Normal speech, Normal affect - Studies Laboratory Data (last 24 hrs) 06/30/23 06/30/23 06/30/23 13:15 13:15 13:15 WBC 12.30 H Hgb 14.2 Hct 42.0 Plt Count 245 PT 11.8 INR 1.07 Sodium Potassium BUN Creatinine Glucose Phosphorus 3.2 Magnesium 2.1 Total Bilirubin AST ALT Alkaline Phosphatase 06/30/23 13:15 WBC Hgb Hct Plt Count PT INR Sodium 135 L Potassium 4.3 BUN 8 Creatinine 0.92 Glucose 135 H Phosphorus Magnesium Total Bilirubin 0.2 AST 29 ALT 34 Alkaline Phosphatase 89 <Jose Cochran - Last Filed: 06/30/23 15:23> - Studies Laboratory Data (last 24 hrs) 06/30/23 06/30/23 06/30/23 13:15 13:15 13:15 WBC 12.30 H Hgb 14.2 Hct 42.0 Plt Count 245 PT 11.8 INR 1.07 Sodium Potassium BUN Creatinine Glucose Phosphorus 3.2 Magnesium 2.1 Total Bilirubin AST ALT Alkaline Phosphatase 06/30/23 13:15 WBC Hgb Hct Plt Count PT INR Sodium 135 L Potassium 4.3 BUN 8 Creatinine 0.92 Glucose 135 H Phosphorus Magnesium Total Bilirubin 0.2 AST 29 ALT 34 Alkaline Phosphatase 89 <Dionicio Guerin - Last Filed: 06/30/23 16:09> Assessment and Plan - Plan Assessment: Seizure-history of seizure disorder with medication noncompliance Left lower extremity erythema-ulcerations Hypertension COPD PAD CAD Chronic diastolic congestive heart failure GERD History of alcohol abuse Plan: Seizure-history of seizure disorder with medication noncompliance Per pharmacy review patient has not filled the prescription for Keppra since December 2022 Loaded with IV Keppra in ED-resume Keppra 1500 mg by mouth twice daily Seizure precautions in place will monitor in ICU given frequency of seizures, patient still drowsy Neurology consulted/Case discussed Left lower extremity erythema-ulcerations Patient with recent admission for left lower extremity cellulitis Erythema present surrounding ulcerations although unclear if this is acute SIRS criteria present including leukocytosis, tachycardia although these are likely reactive from seizure Monitor CBC daily, watch for signs of fever Empiric antibiotics with vancomycin/cefepime Blood cultures and lactate have been obtained Chronic diastolic congestive heart failure Does not appear overloaded at this time Monitor volume status closely Hypertension COPD PAD CAD GERD Obtain and continue medications History of alcohol abuse Discussed further with patient when more alert DVT PPX: Lovenox Code status: Full Discharge Plan: Home Plan to discharge in: 72 Hours - Advance Directives Does patient have a Living Will: No Does patient have a Durable POA for Healthcare: No - Code Status/Comfort Care Code Status Assessed: Yes (Full code) Critical Care: No Time Spent Managing Pts Care (In Minutes): 70 <Jose Cochran - Last Filed: 06/30/23 15:23> - Plan Patient seen and examined on admission with ASSET MANAGEMENT ANALYST Sammie. Agree with plan as noted above with the following additions/corrections: Patient arousable, nods yes/no to questions before closing eyes. Not answering all the time. 2 seizures prior to ER, and a 3rd witnessed in ER. Reportedly without return to baseline consciousness between seizures. Pt has h/o seizures with frequent breakthrough seizure activity. per EMR review, last prescription filled was >6 months ago. He was recently hospitalized for a few days - discharged 06/23/23 for breakthrough seizure and RLE cellulitis, with concern for possible osteomyelitis. Dr. [facility] was consulted at that time. He was noted to have moderate PAD if prescription history accurate, patient has not been taking his keppra. meets sirs criteria, which is most likely secondary to seizures however given recent hospitalization / cellulitis, and erythema of foot, will cover for possible cellulitis and monitor. Photos obtained 2/3 in ED of RLE wounds <Dionicio Guerin - Last Filed: 06/30/23 16:09>
[2023-06-30] MEDS: CEFEPIME 2 GM in NA CHLORIDE 0.9% 100 ML IV SCH ×2 (15:44→20:58)
[2023-06-30] MEDS ORDERED: NA CHLORIDE 0.9% 1,000 ML ONE (15:47)
[2023-06-30] MEDS: NA CHLORIDE 0.9% 1,000 ML IV SCH (15:48)
[2023-06-30] MEDS ORDERED: ENOXAPARIN 40 MG/0.4 ML SQ ONE (15:49)
[2023-06-30] MEDS: ENOXAPARIN 40 MG/0.4 ML SQ SCH (15:50)
[2023-06-30 16:44] VITALS: BMI 27.8
[2023-06-30] MEDS: levETIRAcetam 500 MG TAB PO SCH (17:11)
[2023-06-30] MEDS ORDERED: VANCOMYCIN 500 MG/VIAL ONE (18:41)
[2023-06-30] MEDS: VANCOMYCIN 500 MG in NA CHLORIDE 0.9% 100 ML IVPB ONE (18:43)
[2023-06-30] MEDS ORDERED: CEFEPIME 2 GM VIAL ONE (20:56)
[2023-07-01] MEDS ORDERED: NA CHLORIDE 0.9% 1,000 ML ONE (03:14)
[2023-07-01 05:03] LABS: Absolute Lymphocytes (CBC) 1.9 K/uL (0.7-4.9); Hematocrit 37.4 % (39.6-49.0); Lymphocytes % 16.7 % (15.3-44.8); MPV 6.9 fL (7.6-11.3); Platelets 240 thou/uL (152-406); RBC Red Blood Cell Count 3.86 M/uL (4.33-5.43)
[2023-07-01 05:36] LABS: Albumin 2.5 g/dL (3.4-5.0); Bilirubin Total 0.5 mg/dL (0.2-1.0); Potassium 3.5 mEq/L (3.5-5.1); Protein, Total 7.3 g/dL (6.4-8.2); Thyroid Stimulating Hormone 2.1 uIU/mL (0.358-3.740)
[2023-07-01] MEDS ORDERED: VANCOMYCIN 1 GM/VIAL ONE (05:49)
[2023-07-01] MEDS ORDERED: VANCOMYCIN 500 MG/VIAL ONE (05:49)
[2023-07-01] MEDS ORDERED: NA CHLORIDE 0.9% 0 ML ONE ×2 (05:50→08:13)
[2023-07-01] MEDS ORDERED: NA CHLORIDE 0.9% 500 ML ONE (05:58)
[2023-07-01] MEDS: VANCOMYCIN 1.5 GM in NA CHLORIDE 0.9% 500 ML IVPB SCH (06:00)
[2023-07-01] MEDS ORDERED: HYDROCODONE/APAP 7.5/325 MG TAB ONE ×3 (07:37→23:00)
[2023-07-01] MEDS ORDERED: POTASSIUM CL SA 10 MEQ TAB PO ONE (07:37)
[2023-07-01] MEDS: HYDROCODONE/APAP 7.5/325 MG TAB PO PRN (07:45)
[2023-07-01] MEDS: POTASSIUM CL SA 10 MEQ TAB PO ONE (07:45)
[2023-07-01] MEDS ORDERED: CEFEPIME 2 GM VIAL ONE ×2 (08:12→21:02)
[2023-07-01] MEDS ORDERED: levETIRAcetam 500 MG TAB ONE (08:13)
[2023-07-01] MEDS ORDERED: ENOXAPARIN 40 MG/0.4 ML SQ ONE (08:13)
[2023-07-01 08:29] LABS: Barbiturates NEGATIVE (NEGATIVE); Benzodiazepines NEGATIVE (NEGATIVE); Cocaine NEGATIVE (NEGATIVE); METHAMPHETAM NEGATIVE (NEGATIVE); Methadone NEGATIVE (NEGATIVE); Opiates NEGATIVE (NEGATIVE); Phencyclidine NEGATIVE (NEGATIVE); THC Cannibis NEGATIVE (NEGATIVE)
[2023-07-01] MEDS: VANCOMYCIN 1 GM in NA CHLORIDE 0.9% 250 ML IVPB SCH (09:00)
--- NOTE | 2023-07-01 09:33 | P.PN ---
Date of Service: 07/01/23 Subjective: No further seizures overnight More alert/oriented, no other acute events overnight oriented ROS: 10 point ROS as noted above, otherwise negative Physical exam GEN: Alert, oriented, NAD HEENT: Normal conjunctiva, sclera anicteric CV: Regular rate and rhythm, no edema Pulm: Nonlabored respirations on room air ABD: Soft, nontender, nondistended MSK: No joint tenderness, left BKA, right TMA-ulcerations present distal aspect right TMA, slight erythema noted to right lower extremity proximal to ulcerations Integumentary: No rashes Neuro: Normal speech, normal affect Vitals reviewed Problem List Seizures-history of seizure disorder Left lower extremity erythema-ulcerations Hypertension COPD PAD CAD Chronic diastolic congestive heart failure GERD History of alcohol abuse Plan: Seizure-history of seizure disorder No further seizures overnight Patient reports he has been compliant with his Keppra at home-1500 mg twice daily Seizure precautions continued Will need to discuss with neurology for possible dose titration/second agent Also possible infectious process lowering seizure threshold Left lower extremity erythema-ulcerations Patient with recent admission for left lower extremity cellulitis Erythema present surrounding ulcerations although unclear if this is acute SIRS criteria present including leukocytosis, tachycardia although these are likely reactive from seizure Monitor CBC daily no fevers thus far Empiric antibiotics with vancomycin/cefepime Blood cultures obtained and pending Initial lactate 2.1-downtrending Chronic diastolic congestive heart failure Does not appear overloaded at this time Monitor volume status closely Hypertension COPD PAD CAD GERD Obtain and continue medications History of alcohol abuse Discussed further with patient when more alert DVT PPX: Lovenox Code status: Full Discharge Plan: Home Plan to discharge in: 48 Hours Time Spent Managing Pts Care (In Minutes): 35 <Jose Cochran - Last Filed: 07/01/23 09:31> Patient seen and examined on rounds this morning with POT FLUXER Sammie. Agree with plan of care as noted above with following additions/corrections: no seizure activity overnight feeling better states he has keppra at home, although when we query prescriptions filled at pharmacies - he should have run out continue keppra continue antibiotics leg looks slightly better, no drainage <Dionicio Guerin - Last Filed: 07/01/23 14:54>
[2023-07-01] MEDS ORDERED: ATORVASTATIN 40 MG TAB PO SCH (12:00)
[2023-07-01] MEDS ORDERED: CLOPIDOGREL 75 MG TABLET ONE (12:04)
[2023-07-01] MEDS ORDERED: MULTIVITAMIN TAB PO ONE (12:04)
[2023-07-01] MEDS ORDERED: methocarbamoL 500 MG TAB ONE ×2 (12:05→21:02)
[2023-07-01] MEDS: COLLAGENASE 30 GM OINTMENT TOP SCH (12:33)
[2023-07-01] MEDS: AMLODIPINE 10 MG TAB PO SCH (12:33)
[2023-07-01] MEDS: MULTIVITAMIN TAB PO SCH (12:33)
[2023-07-01] MEDS: ESCITALOPRAM 20 MG TAB PO SCH (12:33)
[2023-07-01] MEDS: SERTRALINE HCL 100 MG TAB PO SCH (12:33)
[2023-07-01] MEDS: BUSPIRONE HCL 15 MG TABLET PO SCH (12:33)
[2023-07-01] MEDS: CLOPIDOGREL 75 MG TABLET PO SCH (12:33)
[2023-07-01] MEDS: methocarbamoL 500 MG TAB PO SCH (12:34)
[2023-07-01] MEDS: ATORVASTATIN 40 MG TAB PO SCH (20:57)
[2023-07-01] MEDS ORDERED: BUSPIRONE HCL 7.5 MG PO SCH (21:00)
[2023-07-01] MEDS ORDERED: NA CHLORIDE 0.9% 100 ML ONE ×2 (21:03→21:05)
[2023-07-01 23:56] VITALS: TEMP 97.9; O2SAT 96
[2023-07-02] MEDS ORDERED: NA CHLORIDE 0.9% 1,000 ML ONE (02:13)
[2023-07-02 02:50] LABS: C.diff Antigen/Toxin Ag neg : Tox neg (NEG : NEG)
[2023-07-02] MEDS ORDERED: HYDROCODONE/APAP 7.5/325 MG TAB ONE ×2 (05:07→11:00)
[2023-07-02 05:47] LABS: Absolute Lymphocytes (CBC) 2.3 K/uL (0.7-4.9); Hematocrit 35.8 % (39.6-49.0); Lymphocytes % 31.6 % (15.3-44.8); MCV 97.3 fL (80-100); MPV 7.2 fL (7.6-11.3); Platelets 211 thou/uL (152-406); RBC Red Blood Cell Count 3.68 M/uL (4.33-5.43)
[2023-07-02 05:55] LABS: Albumin 2.5 g/dL (3.4-5.0); Bilirubin Total 0.3 mg/dL (0.2-1.0); Magnesium 2.2 mg/dL (1.6-2.4); Potassium 3.8 mEq/L (3.5-5.1); Protein, Total 7.1 g/dL (6.4-8.2)
[2023-07-02] MEDS ORDERED: CLOPIDOGREL 75 MG TABLET ONE (08:53)
[2023-07-02] MEDS ORDERED: MULTIVITAMIN TAB PO ONE (08:53)
[2023-07-02] MEDS ORDERED: ASPIRIN EC 81 MG TAB PO ONE (08:53)
[2023-07-02] MEDS ORDERED: IRON PO SCH (09:00)
[2023-07-02] MEDS ORDERED: MULTIVIT MIN PO SCH (09:00)
[2023-07-02] MEDS ORDERED: [UNRECOGNIZED DRUG - OTHER] PO SCH (09:00)
[2023-07-02] MEDS ORDERED: HOME MED 1 EA UNK (Escitalopram Oxalate [Escitalopram Oxalate] 10 MG Tablet) PO SCH (09:00)
[2023-07-02] MEDS ORDERED: FOLIC ACID PO SCH (09:00)
[2023-07-02] MEDS ORDERED: CEFEPIME 2 GM VIAL ONE (09:34)
[2023-07-02] MEDS ORDERED: methocarbamoL 500 MG TAB ONE (09:35)
[2023-07-02] MEDS ORDERED: PHENYTOIN ER 100 MG CAP PO ONE (09:35)
[2023-07-02] MEDS ORDERED: NA CHLORIDE 0.9% 100 ML ONE (09:36)
--- NOTE | 2023-07-02 09:39 | P.DS ---
Admission Date: 06/30/23 Discharge Date: 07/02/23 Disposition: ROUTINE DISCHARGE Discharge Condition: GOOD Reason for Admission: Seizures, lower extremity cellulitis Consultations: Dr. Escobar-Neuro Brief History of Present Illness: 57-year-old male with history of seizure disorder, CAD, COPD, hypertension, PVD status post left BKA and right TMA presented to the emergency department with chief complaint of seizure. Apparently home health nurse was visiting him and found him to be having a seizure, EMS was called and evaluated the patient he declined transfer to the hospital that time. He had a second seizure, EMS was called back out and then transferred him to the hospital. Upon arrival to the emergency department patient was evaluated in the emergency department during his stay in the emergency department he had a third witnessed seizure and was given 2 mg of Ativan IV. Of note he was admitted to the hospital on 06/21/2023 and subsequently discharged on 06/23/2023 for right lower extremity stump cellulitis and seizures. Patient was treated with IV antibiotics during hospitalization and discharged on oral antibiotics. Per chart review patient has not had prescription for Keppra since December 2022. He was taking 1500 mg twice daily at that time. Wounds to left lower extremity are present with surrounding erythema extending up the leg concerning for possible infection, also noted to have leukocytosis and tachycardia. SIRS anterior met blood cultures lactate also obtained in ED. Started on antibiotics. Hospital Course: Problem List Seizures-history of seizure disorder Left lower extremity erythema-ulcerations Hypertension COPD PAD CAD Chronic diastolic congestive heart failure GERD History of alcohol abuse Patient was admitted to the hospital for breakthrough seizures, concern for possible infection of the right lower extremity. At home he takes Keppra 1,500 mg twice daily which she reports has been compliant with. He was loaded with IV Keppra in the emergency department and Keppra 1500 mg twice daily was resumed, he had no further seizure activity. Given his reported compliance with his Keppra and breakthrough seizures Case was discussed with his neurologist Dr. Escobar who recommends addition of Dilantin 100 mg daily for now, he will need to follow-up with Dr. Escobar in the office ideally within 1 to 2 weeks for further titration of the Dilantin. In regards to possible infection of the lower extremity, it is believed that the leukocytosis is primarily reactive to his seizures, no significant infectious process currently ongoing. Given his open wounds and borderline erythema of the lower extremity he will be treated with oral antibiotics for 1 week with Augmentin and doxycycline. We will resume his home health at discharge for further wound care. Recommend following up with his primary care doctor in the next 1 to 2 weeks as well. New medications will include: Dilantin 100 mg daily Augmentin 875 mg by mouth twice daily for 1 week Doxycycline 100 mg by mouth twice daily for 1 week Please follow-up with neurologyDr. Escobar in 1 to 2 weeks Please also follow-up with your primary care doctor in 1 to 2 weeks Vital Signs/Physical Exam: Temp Pulse Resp BP Pulse Ox 97.9 F 81 16 132/72 95 07/01/23 23:55 07/02/23 08:59 07/02/23 05:09 07/02/23 08:59 07/02/23 05:09 General: Alert, In no apparent distress, Oriented x3 HEENT: Atraumatic, PERRLA Neck: Supple, JVD not distended Respiratory: Clear to auscultation bilaterally, Normal air movement Cardiovascular: Regular rate/rhythm, Normal S1 S2 Gastrointestinal: Normal bowel sounds Musculoskeletal: Other (left BKA, right TMA with ulcerations-fibrous tissue present) Integumentary: No rashes Neurological: Normal speech Laboratory Data at Discharge: WBC 7.20 thou/uL (4.3-10.9) 07/02/23 05:30 Hgb 12.2 g/dL (13.6-17.9) L 07/02/23 05:30 Hct 35.8 % (39.6-49.0) L 07/02/23 05:30 Plt Count 211 thou/uL (152-406) 07/02/23 05:30 PT 11.8 SECONDS (9.5-12.5) 06/30/23 13:15 INR 1.07 06/30/23 13:15 Sodium 137 mEq/L (136-145) 07/02/23 05:30 Potassium 3.8 mEq/L (3.5-5.1) 07/02/23 05:30 BUN 10 mg/dL (7-18) 07/02/23 05:30 Creatinine 0.83 mg/dL (0.70-1.30) 07/02/23 05:30 Glucose 96 mg/dL (74-106) 07/02/23 05:30 Phosphorus 3.2 mg/dL (2.5-4.9) 06/30/23 13:15 Magnesium 2.2 mg/dL (1.6-2.4) 07/02/23 05:30 Total Bilirubin 0.3 mg/dL (0.2-1.0) 07/02/23 05:30 AST 20 U/L (15-37) 07/02/23 05:30 ALT 26 U/L (16-61) 07/02/23 05:30 Alkaline Phosphatase 70 U/L (45-117) 07/02/23 05:30 Home Medications: Amlodipine [Norvasc*] 10 mg PO DAILY 06/22/23 Aspirin [Aspirin EC 81 MG] 81 mg PO DAILY 06/22/23 Atorvastatin Calcium 40 mg PO BEDTIME 06/22/23 Buspirone HCl 2 tab PO BID 06/22/23 Clopidogrel Bisulfate [Plavix*] 75 mg PO DAILY 06/22/23 Escitalopram Oxalate 20 mg PO DAILY 06/22/23 Levetiracetam [Keppra] 1.5 tab PO BID 06/22/23 Multivit-Min/Iron/Folic Acid/K [Multi-Day Plus Minerals Tablet] 1 tab PO DAILY 06/22/23 Sertraline [Zoloft*] 100 mg PO DAILY 06/22/23 methocarbamoL [Methocarbamol] 500 mg PO TID 06/22/23 Collagenase [Santyl Ointment*] 1 appl TOP DAILY #1 tube 06/23/23 Hydrocodone 7.5/APAP 325 [[place] 7.5/325 mg*] 1 tab PO Q6H PRN #20 tab 06/23/23 Amox/Clavulanate [Augmentin 875-125 Tab] 875 mg PO BID 7 Days #14 tab 07/02/23 Doxycycline Hyclate 100 mg PO BID 7 Days #14 cap 07/02/23 PHENYTOIN ER Cap [Dilantin ER Cap] 100 mg PO DAILY #30 cap 07/02/23 New Medications: Amox/Clavulanate [Augmentin 875-125 Tab] 875 mg PO BID 7 Days #14 tab PHENYTOIN ER Cap [Dilantin ER Cap] 100 mg PO DAILY #30 cap Doxycycline Hyclate 100 mg PO BID 7 Days #14 cap Physician Discharge Instructions: Patient was admitted to the hospital for breakthrough seizures, concern for possible infection of the right lower extremity. At home he takes Keppra 1,500 mg twice daily which she reports has been compliant with. He was loaded with IV Keppra in the emergency department and Keppra 1500 mg twice daily was resumed, he had no further seizure activity. Given his reported compliance with his Keppra and breakthrough seizures Case was discussed with his neurologist Dr. Escobar who recommends addition of Dilantin 100 mg daily for now, he will need to follow-up with Dr. Escobar in the office ideally within 1 to 2 weeks for further titration of the Dilantin. In regards to possible infection of the lower extremity, it is believed that the leukocytosis is primarily reactive to his seizures, no significant infectious process currently ongoing. Given his open wounds and borderline erythema of the lower extremity he will be treated with oral antibiotics for 1 week with Augmentin and doxycycline. We will resume his home health at discharge for further wound care. Recommend following up with his primary care doctor in the next 1 to 2 weeks as well. New medications will include: Dilantin 100 mg daily Augmentin 875 mg by mouth twice daily for 1 week Doxycycline 100 mg by mouth twice daily for 1 week Please follow-up with neurologyDr. Escobar in 1 to 2 weeks Please also follow-up with your primary care doctor in 1 to 2 weeks Diet: ADA Activity: Fall precautions Followup: Anibal Escobar MD [ASSOCIATE-ACTIVE - CAN ADMIT] - 1 Week OOTRONN [Primary Care Provider] - 1-2 Weeks Time spent managing pt's care (in minutes): 35
[2023-07-02] MEDS: ASPIRIN EC 81 MG TAB PO SCH (09:44)
[2023-07-02] MEDS: PHENYTOIN ER 100 MG CAP PO ONE (09:45)
[2023-07-02 13:57] VITALS: BP 138/93
--- NOTE | 2023-07-02 15:05 | EKG ---
Test Date: 2023-06-30 Test Time: 13:17:19 Environmental Safety Specialist: NICOLETTE MEASUREMENT RESULTS: Intervals: Rate: 106 AR: 160 QRSD: 86 QT: 336 QTc: 446 [place]: P: 70 AR: 160 QRS: 49 T: 62 INTERPRETIVE STATEMENTS: Sinus tachycardia Otherwise normal ECG Compared to ECG 06/21/2023 02:56:11 Sinus rhythm no longer present Electronically Signed On 07-02-23 15:00:22 PIGGERY WORKER by Jose Angel Wharton
[2023-07-02] MEDS ORDERED: VANCOMYCIN 1.5 GM in NA CHLORIDE 0.9% 500 ML IVPB SCH (22:00)
== END 2023-07-02 13:00 | disposition home health service (06) | DRG 101 ==
LOC: ER 12:55 → 3RD-ICU 15:02
PROVIDERS: ADMIT Hospitalist; ATTEND Internal Medicine
DX: G40.909 Epilepsy, unspecified, not intractable, without status epilepticus (principal); R65.10 Systemic inflammatory response syndrome (SIRS) of non-infectious origin without acute organ dysfunction; I50.32 Chronic diastolic (congestive) heart failure; Z59.01 Sheltered homelessness; L97.929 Non-pressure chronic ulcer of unspecified part of left lower leg with unspecified severity; I11.0 Hypertensive heart disease with heart failure; K21.9 Gastro-esophageal reflux disease without esophagitis; J44.9 Chronic obstructive pulmonary disease, unspecified; I25.10 Atherosclerotic heart disease of native coronary artery without angina pectoris; I25.2 Old myocardial infarction; Z95.5 Presence of coronary angioplasty implant and graft; Z79.82 Long term (current) use of aspirin; Z79.02 Long term (current) use of antithrombotics/antiplatelets; Z89.612 Acquired absence of left leg above knee; Z89.421 Acquired absence of other right toe(s); Z89.411 Acquired absence of right great toe; Z89.432 Acquired absence of left foot; Z89.431 Acquired absence of right foot; Z79.899 Other long term (current) drug therapy; Z91.148 Patient's other noncompliance with medication regimen for other reason
CPT/HCPCS: 36415; 70450; 80048; 80053; 80076; 80143; 80179; 80202; 80307; 82077; 83605; 83735; 84100; 84439; 84443; 84484; 85025; 85610; 87040; 87324; 93005; 96365; 96375; 99285; J0692; J1650; J1953; J3590; J7030; J7040; J7050

== ENCOUNTER 2023-08-26 21:49 | Emergency (ER) | payer OTHER ==
[2023-08-26] MEDS ORDERED: LORazepam 2 MG/ML VIAL ONE (22:19)
[2023-08-26] MEDS ORDERED: ONDANSETRON 4 MG/2 ML VIAL ONE (22:24)
[2023-08-26] MEDS ORDERED: FOSPHENYTOIN PE 100 MG/2 ML VIAL ONE (22:24)
[2023-08-26] MEDS ORDERED: NA CHLORIDE 0.9% 50 ML ONE (22:24)
[2023-08-26 22:44] LABS: Absolute Lymphocytes (CBC) 1.4 K/uL (0.7-4.9); Absolute Neutrophil 14.7 K/uL (1.8-8.0); Basophils % 1.1 % (0-1.3); Eosinophils % 0.1 % (0-4.4); Hematocrit 46.3 % (39.6-49.0); Hemoglobin 15.8 g/dL (13.6-17.9); Lymphocytes % 7.8 % (15.3-44.8); MCH 32.8 pg (27.0-35.0); MCHC 34.1 g/dL (32.0-36.0); MCV 96.1 fL (80-100); MPV 7.4 fL (7.6-11.3); Monocytes % 8.8 % (3.3-12.3); Neutrophils % 82.2 % (41.7-73.7); Platelets 246 thou/uL (152-406); RBC Red Blood Cell Count 4.81 M/uL (4.33-5.43); Red Cell Distribution Width 14.2 % (12.1-15.2)
[2023-08-26 22:45] LABS: Absolute Basophils 0.2 K/uL (0-0.5); Absolute Monocytes 1.6 K/uL (0.1-1.3)
--- NOTE | 2023-08-26 22:59 | RAD REPORT ---
EXAM DESCRIPTION: CT - CTFB CLINICAL HISTORY: PAIN COMPARISON: No comparisons TECHNIQUE: Axial 2 mm thick images of the face were obtained with sagittal and coronal reconstructio n images. All CT scans are performed using dose optimization technique as appropriate and may include automated exposure control or mA/KV adjustment according to patient size. FINDINGS: Favored acute nondisplaced right nasal bone fracture. The mandible is intact. The globes and orbital contents are grossly unremarkable.Paranasal sinus thickening involving the max illary sinuses, ethmoid air cells, frontal sinuses, and sphenoid sinuses. Right facial laceration. Forehead hematoma. IMPRESSION: Nondisplaced right nasal bone fracture. Chronic pansinusitis. .
[2023-08-26 23:02] LABS: ALT/SGPT 43 U/L (16-61); AST/SGOT 47 U/L (15-37); Albumin 3.5 g/dL (3.4-5.0); Albumin/Globulin Ratio 0.7 (1.1-1.8); Alkaline Phosphatase 98 U/L (45-117); Anion Gap 17.9 mEq/L (5.0-15.0); BUN Blood Urea Nitrogen 13 mg/dL (7-18); Bicarbonate 17 mEq/L (21-32); Bilirubin Direct 0.2 mg/dL (0-0.2); Bilirubin Indirect, Calculated 0.2 mg/dL (0.2-0.8); Bilirubin Total 0.4 mg/dL (0.2-1.0); Creatine Phosphokinase 880 U/L (39-308); Globulin 5.3 g/dL (2.3-3.5); Glomerular Filtration Rate 57 ml/min (=/>90); Glucose Level 145 mg/dL (74-106); Magnesium 3.1 mg/dL (1.6-2.4); NT PRO-BNP 330 pg/mL (<125); Potassium 3.9 mEq/L (3.5-5.1); Protein, Total 8.8 g/dL (6.4-8.2); Sodium Level 130 mEq/L (136-145); Troponin High Sensitivity 19.7 pg/mL (<58.9)
[2023-08-26 23:04] LABS: PT Prothrombin Time 11.2 SECONDS (9.5-12.5); PTT, Activated Partial Thromb 40.2 SECONDS (24.3-36.9); Protime INR 1.02
[2023-08-26] MEDS ORDERED: TDAP (DIPHTH,PERTUSS(ACELL),TET VAC) 0.5 ML VIAL IMVAC ONE (23:06)
--- NOTE | 2023-08-26 23:06 | RAD REPORT ---
EXAM DESCRIPTION: CT - Head C Spine Cap Wo Con - 08/26/2023 10:53 pm CLINICAL HISTORY: Trauma, head and neck injury. Chest, abdomen and pelvis pain. fall COMPARISON: Head C Spine Cap Wo Con dated 02/27/2022; Head C Spine Cap Wo Con dated 02/10/2022; Head C Spine Cap Wo Con dated 12/27/2021 TECHNIQUE: CT head without contrast. CT cervical spine without contrast with coronal and sagittal reformatted images. CT chest, abdomen and pelvis without contrast with coronal and sagittal reformatted images of the [facility] ne. All CT scans are performed using dose optimization technique as appropriate and may include automated exposure control or mA/KV adjustment according to patient size. FINDINGS: CT HEAD WITHOUT CONTRAST: No intracranial hemorrhage, hydrocephalus or extra-axial fluid collection. No areas of brain edema o r midline shift. Chronic small vessel ischemic changes. The paranasal sinuses and mastoids are clear. The calvarium is intact. CT CERVICAL SPINE WITHOUT CONTRAST: No fracture or subluxation. The prevertebral soft tissues are normal in thickness.Multilevel degener ative changes are present in the spine. Varying degrees of neural foraminal narrowing. CT CHEST, ABDOMEN, PELVIS WITHOUT CONTRAST: NOTE: Lack of contrast is a significant limitation in the assessment of trauma related findings. Spec ifically, solid organ, vascular and bowel evaluation is significantly limited. The lungs are clear.No pneumothorax or pericardial/pleural fluid. Multi-vessel coronary disease. Aort ic valve calcifications. No evidence of intra-abdominal visceral injury, free fluid or free air is seen within the above detai led limitations. Cooper catheter in bladder. Atherosclerosis nonobstructing stones versus vascular mari cifications in the kidneys. Hepatic steatosis. No concerning pelvic findings. No fractures. Multilevel degenerative changes are present in the spine. Chronically dislocated left s houlder. IMPRESSION: Negative for acute traumatic findings within the above detailed limitations.
[2023-08-26 23:18] LABS: Barbiturates NEGATIVE (NEGATIVE); Benzodiazepines NEGATIVE (NEGATIVE); Cocaine POSITIVE (NEGATIVE); METHAMPHETAM POSITIVE (NEGATIVE); Methadone NEGATIVE (NEGATIVE); Opiates NEGATIVE (NEGATIVE); Phencyclidine NEGATIVE (NEGATIVE); THC Cannibis NEGATIVE (NEGATIVE)
[2023-08-26 23:19] LABS: Specific Gravity 1.013 (1.005-1.030); Sqamous Epithelial <5 /HPF (None Seen); Urine Bacteria <20 /HPF (<20); Urine Bilirubin NEGATIVE (Negative); Urine Blood 3+ (Negative); Urine Clarity Extremely Turbid (Clear); Urine Color Light-Yellow (Yellow); Urine Culture Reflex Order NOT NEEDED; Urine Glucose NEGATIVE (Negative); Urine Ketones NEGATIVE (Negative); Urine Microscopic Reflex YN ORDER UMIC; Urine Mucus Slight /HPF (None Seen); Urine Nitrite NEGATIVE (Negative); Urine Protein 2+ (Negative); Urine RBC <5 /HPF (None Seen); Urine Urobilinogen Normal (Normal); Urine WBC <5 /HPF (<5)
[2023-08-27] MEDS ORDERED: NA CHLORIDE 0.9% 1,000 ML ONE (00:50)
--- NOTE | 2023-08-27 03:05 | EDPHYS ---
Physician Documentation [facility] Name: Karlos Leblanc Age: 57 yrs Sex: Male : 1965 Arrival Date: 08/26/2023 Time: 21:49 Bed 18 Private MD: ED Physician German Guerin HPI: 08/25 22:15 This 57 yrs old Male presents to ER via EMS with complaints of Seizure. cp 22:15 The patient presents after having a single isolated seizure, that lasted an unknown cp period of time. 22:15 Seizure onset: today, about 1300. cp 22:15 Context: occurred at home, Contributing factors: unknown. Seizure Hx: Seizure cp medications: Keppra. Associated injury: Head/face: abrasion, contusion, swelling, tenderness, Left upper extremity: left hand, abrasion. EMS care: none. Current symptoms: Currently, the patient is not experiencing any symptoms, no decreased level of consciousness. Patient reports seizure this afternoon about 1300. Found on ground and EMS called. Historical: - Allergies: 23:33 NKDA; rv - PMHx: 23:33 Chronic obstructive lung disease; Hypertension; Myocardial infarction; Seizures; rv - PSHx: 23:33 cardiac stents; Left Leg Amputation (below the knee); Right toes amputation; rv - Immunization history:: Adult Immunizations up to date. - Social history:: Smoking status: unknown. ROS: 22:20 Constitutional: Negative for fever, cp 22:20 Eyes: Negative for injury, pain, redness, and discharge, cp 22:20 ENT: Negative for drainage from ear(s), ear pain, sore throat, difficulty swallowing, difficulty handling secretions, 22:20 Cardiovascular: Negative for chest pain, 22:20 Respiratory: Negative for cough, shortness of breath, wheezing, 22:20 Abdomen/GI: Negative for vomiting, diarrhea, constipation, 22:20 : Negative for urinary symptoms, 22:20 Neuro: Positive for history of seizure, Negative for altered mental status, dizziness, 22:20 All other systems are negative, Exam: 22:25 Constitutional: The patient appears in no acute distress, alert, awake, cp non-diaphoretic, non-toxic, well developed, well nourished, unkempt, 22:25 Head/face: Noted is abrasion(s), that are mild, of the forehead, right cheek, nose and cp left cheek, contusion, that is superficial, of the forehead and left adventism, swelling, that is mild, of the forehead and left adventism, 22:25 Eyes: Periorbital structures: appear normal, Pupils: pinpoint, bilaterally, Extraocular movements: intact throughout, Conjunctiva: normal, no exudate, no injection, Sclera: no appreciated abnormality, Lids and lashes: appear normal, bilaterally, 22:25 ENT: External ear(s): are unremarkable, Ear canal(s): are normal, clear, TM's: dullness, bilaterally, Nose: External nose: swelling is noted, Nasal septum: is midline, no septal hematoma appreciated, bleeding, and is minimal, Mouth: Lips: moist, Oral mucosa: moist, Posterior pharynx: Airway: no evidence of obstruction, patent, 22:25 Neck: C-spine: vertebral tenderness, is not appreciated, crepitus, is not appreciated, 22:25 Chest/axilla: Inspection: normal, Palpation: crepitus, is not appreciated, tenderness, is not appreciated, 22:25 Cardiovascular: Rate: normal, Rhythm: regular, Edema: is not appreciated, JVD: is not appreciated, 22:25 Respiratory: the patient does not display signs of respiratory distress, Respirations: normal, no use of accessory muscles, no retractions, Breath sounds: are clear throughout, no decreased breath sounds, no stridor, no wheezing, 22:25 Abdomen/GI: Inspection: abdomen appears normal, Palpation: abdomen is soft and non-tender, in all quadrants, 22:25 Musculoskeletal/extremity: left lower extremity amputation and right foot partial amputation. 22:25 Skin: chronic wounds noted to right foot with no acute cellulitis. 22:25 Neuro: Orientation: to person, place \T\ time. Mentation: able to follow commands, slow to respond, Motor: moves all fours, no focal deficits, Sensation: no obvious gross deficits, Vital Signs: 22:00 BP 188 / 80; Pulse 95; Resp 18; Temp 98; Pulse Ox 100% ; rv 23:35 BP 171 / 82; Pulse 103; Resp 20; Pulse Ox 96% on R/A; rv 08/26 00:00 BP 157 / 79; Pulse 103; Resp 24; Pulse Ox 96% ; rv 01:00 BP 160 / 77; Pulse 102; Resp 24; Pulse Ox 97% on R/A; rv 02:00 BP 167 / 85; Pulse 96; Resp 22; Pulse Ox 97% on R/A; rv 03:00 BP 139 / 74; Pulse 95; Resp 17; Pulse Ox 96% ; rv 04:00 BP 141 / 70; Pulse 94; Resp 18; Pulse Ox 96% on R/A; rv 05:00 BP 137 / 71; Pulse 97; Resp 16; Pulse Ox 97% on R/A; rv [place] Coma Score: 08/25 23:36 Eye Response: to voice(3). Motor Response: localizes pain(5). Verbal Response: rv confused(4). Total: 12. 08/26 04:00 Eye Response: spontaneous(4). Motor Response: obeys commands(6). Verbal Response: rv oriented(5). Total: 15. 05:00 Eye Response: spontaneous(4). Motor Response: obeys commands(6). Verbal Response: rv oriented(5). Total: 15. MDM: 08/25 22:08 Patient medically screened. cp 08/26 02:40 Data reviewed: vital signs, nurses notes, lab test result(s), EKG, radiologic studies, cp CT scan, plain films. 02:40 Differential diagnosis: cerebral vascular accident, drug overdose, cardiac arrhythmia, cp seizure. Consideration of Admission/Observation Escalation of care including admission/observation considered. I considered the following discharge prescriptions or medication management in the emergency department Medications were administered in the Emergency Department. See MAR. Independent interpretation of the following test(s) in the Emergency Department EKG: See my EKG interpretation above. Care significantly affected by the following chronic conditions: Hypertension, seizure disorder. Counseling: I had a detailed discussion with the patient and/or guardian regarding the historical points, exam findings, and any diagnostic results supporting the discharge/admit diagnosis, lab results, radiology results, to return to the emergency department if symptoms worsen or persist or if there are any questions or concerns that arise at home. Response to treatment: the patient's symptoms have markedly improved after treatment, and as a result, I will discharge patient. 08/25 22:07 Order name: Basic Metabolic Panel; Complete Time: 23:24 cp 08/25 23:26 Interpretation: Normal except: NA 130; CO2 17; ANION GAP 17.9; GLUC 145; CRE 1.42; GFR cp 57. 08/25 22:07 Order name: CBC with Diff; Complete Time: 23:24 08/25 23:25 Interpretation: Normal except: WBC 17.90; MPV 7.4; NERY% 82.2; LYM% 7.8; NEUT A 14.7; cp MNA 1.6. 08/25 22:07 Order name: LFT's; Complete Time: 23:24 08/25 23:26 Interpretation: Normal except: AST 47; TP 8.8; GLOB 5.3; A/G 0.7. 08/25 22:07 Order name: Magnesium; Complete Time: 23:24 08/25 22:07 Order name: NT PRO-BNP; Complete Time: 23:24 08/26 01:01 Interpretation: Reviewed. 08/25 22:07 Order name: PT-INR; Complete Time: 23:24 08/25 22:07 Order name: Troponin HS; Complete Time: 23:24 08/25 22:07 Order name: Acetaminophen; Complete Time: 23:24 08/25 22:07 Order name: ETOH Level; Complete Time: 23:24 08/25 22:07 Order name: Ptt, Activated; Complete Time: 23:24 08/25 22:07 Order name: Salicylate; Complete Time: 23:24 08/25 22:07 Order name: Urinalysis w/ reflexes; Complete Time: 23:24 08/25 22:07 Order name: Urine Drug Screen; Complete Time: 23:24 08/26 02:34 Interpretation: Normal except: ASHLEY POSITIVE; METHAMPHETAMINE POSITIVE. 08/25 22:07 Order name: CK; Complete Time: 23:24 cp 08/26 02:35 Interpretation: Abnormal: CPK 880. 08/25 22:07 Order name: XRAY Chest (1 view) 08/25 22:07 Order name: CT Facial Bones W/O Con; Complete Time: 23:24 cp 08/25 22:07 Order name: CT Traumagram (Head C Spine CAP wo con); Complete Time: 23:24 08/25 22:07 Order name: EKG; Complete Time: 22:08 08/25 22:07 Order name: Cardiac monitoring; Complete Time: 22:56 cp 08/25 22:07 Order name: EKG - Nurse/Tech; Complete Time: 22:56 cp 08/25 22:07 Order name: IV Saline Lock; Complete Time: 22:56 cp 08/25 22:07 Order name: Labs collected and sent; Complete Time: 22:56 cp 08/25 22:07 Order name: O2 Per Protocol; Complete Time: 22:56 cp 08/25 22:07 Order name: O2 Sat Monitoring; Complete Time: 22:56 cp 08/25 23:35 Order name: Cooper; Complete Time: 23:35 rv Administered Medications: 08/25 22:24 Drug: Ativan IVP 2 mg IVP once Route: IVP; Site: right wrist; rv 23:30 Follow up: Response: No adverse reaction; Marked relief of symptoms rv 22:30 Drug: Fosphenytoin IVPB 1 grams IVPB once; (mix in 50 to 100mL NS) Route: IVPB; Site: rv right hand; 23:30 Follow up: Response: No adverse reaction; Marked relief of symptoms; IV Status: rv Completed infusion; IV Intake: 50ml 23:29 Not Given (Product Out of Stock): tetanus-diphtheria toxoidadult 0.5 ml IM once; rv Provide Vaccine Information Statement (VIS). 23:30 Drug: NS 0.9% IV 1000 ml IV at 1 bolus Per protocol; 1000 mL bolus Route: IV; Rate: 1 rv bolus; Site: right hand; 23:30 Drug: Boostrix Tdap IM 0.5 ml IM once; as a single dose Route: IM; Site: left deltoid; rv 08/26 01:04 Drug: NS 0.9% IV 1000 ml IV at 1 bolus Per protocol; 1000 mL bolus Route: IV; Rate: 1 rv bolus; Site: right hand; Disposition Summary: 08/27/23 03:04 Discharge Ordered Notes: Location: Home cp Problem: an acute exacerbation cp Symptoms: have improved cp Condition: Stable cp Diagnosis - Other seizures cp - Adverse effect of amphetamines cp - Cocaine abuse cp - Fracture of nasal bones cp - Contusion of unspecified part of head, initial encounter cp Followup: cp - With: Private Physician - When: 1 - 2 days - Reason: Recheck today's complaints Discharge Instructions: - Discharge Summary Sheet cp - Cocaine Use Disorder cp - Facial or Scalp Contusion cp - Head Injury, Adult cp - Nasal Fracture cp - Seizure, Adult cp - Methamphetamines Use Disorder cp Forms: - Medication Reconciliation Form cp - Thank You Letter cp - Antibiotic Education cp - Prescription Opioid Use cp - Patient Portal Instructions cp - Leadership Thank You Letter cp Prescriptions: - Augmentin 875-125 mg Oral Tablet - take 1 tablet ORAL route every 12 hours for 10 days; 20 tablet; Refills: 0, cp Product Selection Permitted Signatures: Dispatcher [employer] EDMS German Guerin MD MD rn Page, Corey, PA PA cp Chava Lux RN RN rv Corrections: (The following items were deleted from the chart) 08/25 22:08 22:08 BASIC METABOLIC PANEL+C.LAB.BRZ ordered. EDMS EDMS 22:08 22:08 CBC+H.LAB.BRZ ordered. EDMS EDMS 22:08 22:08 HEPATIC FUNCTION+C.LAB.BRZ ordered. EDMS EDMS 22:08 22:08 MAGNESIUM+C.LAB.BRZ ordered. EDMS EDMS 22:08 22:08 PROBNP+C.LAB.BRZ ordered. EDMS EDMS 22:08 22:08 PROTIME (+INR)+COAG.LAB.BRZ ordered. EDMS EDMS 22:08 22:08 Troponin High Sensitivity+C.LAB.BRZ ordered. EDMS EDMS 22:09 22:08 ACETAMINOPHEN+C.LAB.BRZ ordered. EDMS EDMS 22:09 22:08 ETHANOL+C.LAB.BRZ ordered. EDMS EDMS 22: 22:08 PTT, ACTIVATED+COAG.LAB.BRZ ordered. EDMS EDMS 22:09 22:08 SALICYLATE+C.LAB.BRZ ordered. EDMS EDMS 22:09 22:08 Urinalysis+U.LAB.BRZ ordered. EDMS EDMS 22:09 22:08 URINE DRUG SCREEN+UC.LAB.BRZ ordered. EDMS EDMS 22: 22:08 CREATINE PHOSPHOKINASE+C.LAB.BRZ ordered. EDMS EDMS
--- NOTE | 2023-08-27 03:05 | ER ---
Nurse's Notes [facility] Name: Karlos Leblanc Age: 57 yrs Sex: Male : 1965 Arrival Date: 08/26/2023 Time: 21:49 Bed 18 Private MD: Diagnosis: Other seizures;Adverse effect of amphetamines;Cocaine abuse;Fracture of nasal bones;Contusion of unspecified part of head, initial encounter Presentation: 08/25 22:00 Chief complaint: EMS states: TONED OUT FOR POSSIBLE SEIZURE, PT FOUND ON THE GROUND AT HOME, NOTED BLEEDING ON THE FACE AND EXTREMITIES. PT ADMITTED DRINKING A 6 PACK OF BEER TODAY. 22:00 Coronavirus screen: At this time, the client does not indicate any symptoms associated rv with coronavirus-19. Ebola Screen: No symptoms or risks identified at this time. Initial Sepsis Screen: Does the patient meet any 2 criteria? No. Patient's initial sepsis screen is negative. Does the patient have a suspected source of infection? No. Patient's initial sepsis screen is negative. Risk Assessment: Do you want to hurt yourself or someone else? Patient reports no desire to harm self or others. Onset of symptoms was August 26, 2023. 22:00 Method Of Arrival: EMS: [facility] 22:00 Acuity: KENIA 2 rv Triage Assessment: 22:00 General: Appears ill, Behavior is calm, cooperative. Pain: Denies pain. Neuro: Level of rv Consciousness is awake, obeys commands, Oriented to person, place, time, situation. 22:00 Cardiovascular: Capillary refill < 3 seconds Patient's skin is warm and dry. rv Respiratory: Airway is patent Respiratory effort is even, unlabored. Derm: Wound noted right arm and left arm. Historical: - Allergies: 23:33 NKDA; rv - PMHx: 23:33 Chronic obstructive lung disease; Hypertension; Myocardial infarction; Seizures; rv - PSHx: 23:33 cardiac stents; Left Leg Amputation (below the knee); Right toes amputation; rv - Immunization history:: Adult Immunizations up to date. - Social history:: Smoking status: unknown. Screenin:34 [facility] ED Fall Risk Assessment (Adult) History of falling in the last 3 months, rv including since admission Yes- fall prone (multiple falls) (3 pts) Score/Fall Risk Level 3 or more points = High Risk Oriented to surroundings, Maintained a safe environment, Educated pt \T\ family on fall prevention, incl call for assistance when getting out of bed, Assessed \T\ reinforced patient's understanding of fall precautions. Abuse screen: Denies threats or abuse. Denies injuries from another. Nutritional screening: No deficits noted. Tuberculosis screening: No symptoms or risk factors identified. Assessment: 22:56 Reassessment: pt had seizure episode in the ED. IV established. medication given as rv ordered. suctioned secretions orally. placed on oxygen mask. elevated head of bed. seizure pads applied to both sides. vs monitoring. 08/26 07:31 Reassessment: Patient appears in no apparent distress at this time. Patient and/or ph family updated on plan of care and expected duration. Pain level reassessed. Pt asleep w/ equal and unlabored respirations. Vital Signs: 08/25 22:00 BP 188 / 80; Pulse 95; Resp 18; Temp 98; Pulse Ox 100% ; rv 23:35 BP 171 / 82; Pulse 103; Resp 20; Pulse Ox 96% on R/A; rv 04 00:00 BP 157 / 79; Pulse 103; Resp 24; Pulse Ox 96% ; rv 01:00 BP 160 / 77; Pulse 102; Resp 24; Pulse Ox 97% on R/A; rv 02:00 BP 167 / 85; Pulse 96; Resp 22; Pulse Ox 97% on R/A; rv 03:00 BP 139 / 74; Pulse 95; Resp 17; Pulse Ox 96% ; rv 04:00 BP 141 / 70; Pulse 94; Resp 18; Pulse Ox 96% on R/A; rv 05:00 BP 137 / 71; Pulse 97; Resp 16; Pulse Ox 97% on R/A; rv [place] Coma Score: 08/25 23:36 Eye Response: to voice(3). Motor Response: localizes pain(5). Verbal Response: rv confused(4). Total: 12. 08/26 04:00 Eye Response: spontaneous(4). Motor Response: obeys commands(6). Verbal Response: rv oriented(5). Total: 15. 05:00 Eye Response: spontaneous(4). Motor Response: obeys commands(6). Verbal Response: rv oriented(5). Total: 15. ED Course: 08/25 21:56 Patient arrived in ED. pf1 22:00 Arm band placed on left wrist. rv 22:06 Aaron Meek PA is PHCP. cp 22:06 German Guerin MD is Attending Physician. cp 22:20 Wound care: to abrasion, located on face was cleaned with Hibiclens, debrided using. kmf 22:20 Inserted saline lock: 20 gauge in right hand, using aseptic technique. Blood collected. rv 22:54 CT Facial Bones W/O Con In Process Unspecified. EDMS 22:54 CT Traumagram (Head C Spine CAP wo con) In Process Unspecified. EDMS 23:02 XRAY Chest (1 view) In Process Unspecified. EDMS 23:33 Triage completed. rv 23:34 No provider procedures requiring assistance completed. Cooper cath inserted, using rv sterile technique, 16 Fr., by wi, balloon inflated, to gravity drainage, urine specimen collected. returned clear yellow urine. Patient tolerated well. 23:34 Patient has correct armband on for positive identification. Client placed on continuous rv cardiac and pulse oximetry monitoring. NIBP monitoring applied. bus driver/monitor on. 08/26 07:28 Kelsey Contreras, RN is Primary Nurse. ph Administered Medications: 08/25 22:24 Drug: Ativan IVP 2 mg IVP once Route: IVP; Site: right wrist; rv 23:30 Follow up: Response: No adverse reaction; Marked relief of symptoms rv 22:30 Drug: Fosphenytoin IVPB 1 grams IVPB once; (mix in 50 to 100mL NS) Route: IVPB; Site: rv right hand; 23:30 Follow up: Response: No adverse reaction; Marked relief of symptoms; IV Status: rv Completed infusion; IV Intake: 50ml 23:29 Not Given (Product Out of Stock): tetanus-diphtheria toxoidadult 0.5 ml IM once; rv Provide Vaccine Information Statement (VIS). 23:30 Drug: NS 0.9% IV 1000 ml IV at 1 bolus Per protocol; 1000 mL bolus Route: IV; Rate: 1 rv bolus; Site: right hand; 23:30 Drug: Boostrix Tdap IM 0.5 ml IM once; as a single dose Route: IM; Site: left deltoid; rv 08/26 01:04 Drug: NS 0.9% IV 1000 ml IV at 1 bolus Per protocol; 1000 mL bolus Route: IV; Rate: 1 rv bolus; Site: right hand; Medication: 08/25 23:34 Vaccine Information Statement (VIS) provided today. Questions and/or concerns rv addressed. VIS edition date: August 26, 2023. Intake: 23:30 IV: 50ml; Total: 50ml. rv Outcome: 08/26 03:04 Discharge ordered by MD. santillan 10:25 Patient left the ED. ll1 Signatures: Dispatcher [employer] EDKelsey Noe, RN RN ph Aaron Meek PA PA Chava Pena RN RN rv Phil Cabral RN RN ll1 Majo Lopez RN RN [facility] Damaris Roman [facility]
--- NOTE | 2023-08-27 13:16 | RAD REPORT ---
EXAM DESCRIPTION: RAD - Chest Single View - 08/26/2023 11:00 pm CLINICAL HISTORY: 57 years, Male, seizure COMPARISON: None FINDINGS: 1 views of the chest was obtained. Prior films were compared. There is slight decreased lung volume. Mediastinum: The cardiomediastinal silhouette appears normal in size and shape. Lungs: No areas of consolidations or masses are identified. Heart: The heart is normal in size. Thoracic aorta: The thoracic aorta demonstrate to be normal. Pulmonary vasculature: The pulmonary vasculature is normal in distribution. Pleura: The costophrenic angles demonstrate to be sharp. Osseous structures: The bony structures demonstrate to be within normal limits. Other: None. IMPRESSION: No acute cardiopulmonary disease is seen Electronically signed by: Anatoliy Chatman MD 08/26/2023 11:09 PM CDT Due to temporary technical issues with the PACS/Fluency reporting system, reports are being signed by the in house radiologist without review as a courtesy to ensure prompt reporting. The interpreting r adiologist is fully responsible for the content of the report.
--- NOTE | 2023-08-27 13:39 | EKG ---
Test Date: 2023-08-26 Test Time: 22:03:09 Sole Buffer: RV MEASUREMENT RESULTS: Intervals: Rate: 106 [place]: 156 QRSD: 88 QT: 354 QTc: 470 [place]: P: 71 [place]: 156 QRS: 50 T: 66 INTERPRETIVE STATEMENTS: Sinus tachycardia Otherwise normal ECG Compared to ECG 06/30/2023 13:17:19 No significant changes Electronically Signed On 08-27-23 13:36:18 CDT by Jose Angel Wharton
[2023-08-27 14:25] VITALS: BP 137/71; TEMP 98; O2SAT 97
== END 2023-08-27 10:25 | disposition home or self-care (01) ==
LOC: ER 21:49
DX: G40.89 Other seizures (principal); F14.10 Cocaine abuse, uncomplicated; T43.625A Adverse effect of amphetamines, initial encounter; S02.2XXA Fracture of nasal bones, initial encounter for closed fracture; I10 Essential (primary) hypertension; J44.9 Chronic obstructive pulmonary disease, unspecified; Z95.818 Presence of other cardiac implants and grafts; Z89.512 Acquired absence of left leg below knee
CPT/HCPCS: 96365; 93005; 85025; 81001; 80048; 36415; 83735; 82550; 85610; 80076; 85730; 84484; 83880; 80307; 70450; 71250; 72125; 70486; 76377; 71045; 51702; 96375; 96372; 99285; 80143; 80179; 82077; Q2009; J2405; J7030

== ENCOUNTER 2023-09-24 16:05 | Emergency (ER) | payer OTHER ==
[2023-09-24] MEDS ORDERED: LEVETIRACETAM 500 MG/5 ML VIAL IV ONE (16:33)
[2023-09-24] MEDS ORDERED: NA CHLORIDE 0.9% 100 ML ONE (16:34)
--- NOTE | 2023-09-24 17:21 | EDPHYS ---
Physician Documentation [facility] Name: Karlos Leblanc Age: 57 yrs Sex: Male : 1965 Arrival Date: 09/24/2023 Time: 16:05 Bed 7 Private MD: ED Physician German Guerin HPI: 09/23 17:15 This 57 yrs old Male presents to ER via EMS with complaints of Seizure. rn 17:15 The patient presents with a history of multiple seizures, a total of 2. Seizure onset: rn just prior to arrival. Associated injury: The patient did not suffer any apparent associated injury. Current symptoms: headache. The patient has experienced similar episodes in the past. EMS brought patient in after neighbor witnessed seizure and called 911. Patient reports takes Keppra and has not missed any doses. States still has breakthrough seizures several times a month despite taking his Keppra. No changes in dosage. Patient states feels like had a seizure but otherwise feels pretty much back to normal. Denies recent illness. No chest pain or shortness of breath. No pain from trauma or fall.. Historical: - Allergies: 16:14 NKDA; ph - Home Meds: 16:14 amlodipine oral [Active]; Aspirin Oral [Active]; atorvastatin oral [Active]; ph clopidogrel oral [Active]; escitalopram oxalate oral [Active]; levetiracetam oral [Active]; Methocarbamol Oral [Active]; sertraline oral [Active]; - PMHx: 16:14 Chronic obstructive lung disease; Hypertension; Myocardial infarction; Seizures; ph - PSHx: 16:14 cardiac stents; Left Leg Amputation (below the knee); Right toes amputation; ph - Immunization history:: Adult Immunizations unknown. - Infectious Disease History:: Denies. - Social history:: Smoking status: Patient reports the use of cigarette tobacco products, smokes one-half pack cigarettes per day. - Family history:: not pertinent. - Hospitalizations: : No recent hospitalization is reported. ROS: 17:15 Constitutional: Negative for fever, chills, and weight loss, Eyes: Negative for injury, rn pain, redness, and discharge, Neck: Negative for injury, pain, and swelling, Cardiovascular: Negative for chest pain, palpitations, and edema, Respiratory: Negative for shortness of breath, cough, wheezing, and pleuritic chest pain, Abdomen/GI: Negative for abdominal pain, nausea, vomiting, diarrhea, and constipation, MS/Extremity: Negative for injury and deformity, Skin: Negative for injury, rash, and discoloration, Neuro: Positive for seizure Exam: 17:15 Constitutional: This is a well developed, well nourished patient who is awake, alert, rn and in no acute distress. Head/Face: Normocephalic, atraumatic. Eyes: Pupils equal round and reactive to light, extra-ocular motions intact. Lids and lashes normal. Conjunctiva and sclera are non-icteric and not injected. Cornea within normal limits. Periorbital areas with no swelling, redness, or edema. Neck: Trachea midline, no masses palpated, and no cervical lymphadenopathy. Supple, full range of motion without nuchal rigidity, or vertebral point tenderness. No Meningismus. Cardiovascular: Regular rate and rhythm. No pulse deficits. Respiratory: No increased work of breathing, no retractions or nasal flaring. Abdomen/GI: Soft, nontender Neuro: Awake and alert, GCS 15, oriented to person, place, time, and situation. Cranial nerves II-XII grossly intact. Motor strength 5/5 in all extremities. Sensory grossly intact. Vital Signs: 16:08 BP 143 / 80; Pulse 92; Resp 18; Temp 98.2; Pulse Ox 96% on R/A; Weight 88.45 kg; Height ph 6 ft. 1 in. ; 17:45 BP 158 / 78; Pulse 87; Resp 18; Temp 97.8; Pulse Ox 99% on R/A; ph 16:08 Body Mass Index 25.73 (88.45 kg, 185.42 cm) ph MDM: 16:16 Patient medically screened. rn 17:15 Differential diagnosis: seizure. Data reviewed: vital signs, nurses notes, and as a rn result, I will discharge patient. 17:18 Counseling: I had a detailed discussion with the patient and/or guardian regarding the rn historical points, exam findings, and any diagnostic results supporting the discharge/admit diagnosis, the need for outpatient follow up, to return to the emergency department if symptoms worsen or persist or if there are any questions or concerns that arise at home. Special discussion: I discussed with the patient/guardian in detail that at this point there is no indication for admission to the hospital. It is understood, however, that if the symptoms persist or worsen the patient needs to return immediately for re-evaluation. Based on the history and exam findings, there is no indication for further emergent testing or inpatient evaluation. I discussed with the patient/guardian the need to see the neurologist for further evaluation of the symptoms. 17:18 ED course: Patient feels back to baseline, loaded with Keppra, patient does not want rn any further workup. Patient states this feels identical to previous seizures and is feeling much better. Will discharge home with return precautions. Patient states has refills of all of his medication at [facility] and will go to [facility] to get his medication refilled.. Administered Medications: 17:08 Drug: Keppra IV 1000 mg IV at calculated rate once Route: IV; Rate: calculated rate; ph Site: right antecubital; 17:35 Follow up: Response: No adverse reaction; IV Status: Completed infusion; IV Intake: ph 100ml Disposition Summary: 09/24/23 17:20 Discharge Ordered Notes: Location: Home rn Problem: chronic rn Symptoms: have improved rn Condition: Stable rn Diagnosis - Epileptic seizures related to external causes, not intractable, without status rn epilepticus Followup: rn - With: Private Physician - When: As needed - Reason: Recheck today's complaints, Re-evaluation by your physician Discharge Instructions: - Discharge Summary Sheet rn - Epilepsy rn - Seizure, Adult rn Forms: - Medication Reconciliation Form rn - Antibiotic web development intern - Prescription Opioid Use rn - Patient Portal Instructions rn - Leadership Thank You Letter rn Signatures: Germna Guerin MD MD rn MilanKelsey RN RN
--- NOTE | 2023-09-24 17:21 | ER ---
Nurse's Notes [facility] Name: Karlos Leblanc Age: 57 yrs Sex: Male : 1965 Arrival Date: 09/24/2023 Time: 16:05 Bed 7 Private MD: Diagnosis: Epileptic seizures related to external causes, not intractable, without status epilepticus Presentation: 09/23 16:08 Chief complaint: EMS states: EMS called for seizure, pt hx of seizures, had 2 today, ph was post-ictal on scene, A\T\O x 4 upon arrival to ED. Coronavirus screen: Vaccine status: Patient reports being unvaccinated. Ebola Screen: No symptoms or risks identified at this time. Initial Sepsis Screen: Does the patient meet any 2 criteria? No. Patient's initial sepsis screen is negative. Does the patient have a suspected source of infection? No. Patient's initial sepsis screen is negative. Risk Assessment: Do you want to hurt yourself or someone else? Patient reports no desire to harm self or others. Onset of symptoms was September 24, 2023. 16:08 Method Of Arrival: EMS: [facility] 16:08 Acuity: KENIA 3 ph Historical: - Allergies: 16:14 NKDA; ph - Home Meds: 16:14 amlodipine oral [Active]; Aspirin Oral [Active]; atorvastatin oral [Active]; ph clopidogrel oral [Active]; escitalopram oxalate oral [Active]; levetiracetam oral [Active]; Methocarbamol Oral [Active]; sertraline oral [Active]; - PMHx: 16:14 Chronic obstructive lung disease; Hypertension; Myocardial infarction; Seizures; ph - PSHx: 16:14 cardiac stents; Left Leg Amputation (below the knee); Right toes amputation; ph - Immunization history:: Adult Immunizations unknown. - Infectious Disease History:: Denies. - Social history:: Smoking status: Patient reports the use of cigarette tobacco products, smokes one-half pack cigarettes per day. - Family history:: not pertinent. - Hospitalizations: : No recent hospitalization is reported. Screenin:15 [facility] ED Fall Risk Assessment (Adult) History of falling in the last 3 months, ph including since admission No falls in past 3 months (0 pts) Confusion or Disorientation No (0 pts) Intoxicated or Sedated No (0 pts) Impaired Gait No (0 pts) Mobility Assist Device Used No (0 pt) Altered Elimination No (0 pt) Score/Fall Risk Level 0 - 2 = Low Risk Oriented to surroundings, Maintained a safe environment. Abuse screen: Denies threats or abuse. Denies injuries from another. Nutritional screening: No deficits noted. Tuberculosis screening: No symptoms or risk factors identified. Assessment: 16:30 General: Appears in no apparent distress. comfortable, Behavior is calm, cooperative, ph appropriate for age. Pain: Denies pain. Neuro: Level of Consciousness is awake, alert, obeys commands, Oriented to person, place, time, situation. Neuro: Seizure activity reported prior to arrival. Cardiovascular: Capillary refill < 3 seconds in bilateral fingers Patient's skin is warm and dry. Respiratory: Airway is patent Respiratory effort is even, unlabored. Derm: Skin is pink, warm \T\ dry. Vital Signs: 16:08 BP 143 / 80; Pulse 92; Resp 18; Temp 98.2; Pulse Ox 96% on R/A; Weight 88.45 kg; Height ph 6 ft. 1 in. ; 17:45 BP 158 / 78; Pulse 87; Resp 18; Temp 97.8; Pulse Ox 99% on R/A; ph 16:08 Body Mass Index 25.73 (88.45 kg, 185.42 cm) ph ED Course: 16:07 Patient arrived in ED. ph 16:14 Triage completed. ph 16:16 German Guerin MD is Attending Physician. rn 16:17 Arm band placed on Patient placed in an exam room, on a stretcher. ph 16:27 Kelsey Contreras, TAVO is Primary Nurse. ph 16:57 Inserted saline lock: 20 gauge in right antecubital area, using aseptic technique. bc6 17:00 Seizure precautions initiated. Pulse ox on. NIBP on. ph 17:50 No provider procedures requiring assistance completed. IV discontinued, intact, ph bleeding controlled, No redness/swelling at site. Pressure dressing applied. Administered Medications: 17:08 Drug: Keppra IV 1000 mg IV at calculated rate once Route: IV; Rate: calculated rate; ph Site: right antecubital; 17:35 Follow up: Response: No adverse reaction; IV Status: Completed infusion; IV Intake: ph 100ml Medication: 17:35 VIS not applicable for this client. ph Intake: 17:35 IV: 100ml; Total: 100ml. ph Outcome: 17:20 Discharge ordered by . rn 17:51 Patient left the ED. iw 17:51 Discharged to home via wheelchair, ph 17:51 Condition: good 17:51 Discharge instructions given to patient, Instructed on discharge instructions, follow up and referral plans. Demonstrated understanding of instructions, follow-up care, Signatures: Ella Talavera RN RN iw German Guerin MD MD rn Hall, Patricia, RN RN Shirley Villafana [facility]
[2023-09-24 18:19] VITALS: BP 143/80; TEMP 98.2; O2SAT 96
== END 2023-09-24 17:51 | disposition home or self-care (01) ==
LOC: ER 16:05
DX: G40.509 Epileptic seizures related to external causes, not intractable, without status epilepticus (principal); F17.210 Nicotine dependence, cigarettes, uncomplicated; Z95.818 Presence of other cardiac implants and grafts; Z79.82 Long term (current) use of aspirin; Z89.512 Acquired absence of left leg below knee
CPT/HCPCS: 96365; 99284; J1953

== ENCOUNTER 2024-01-11 13:36 | Inpatient (IN) | payer OTHER ==
[2024-01-11 14:24] LABS: Absolute Basophils 0.1 K/uL (0-0.5); Absolute Eosinophils 0.6 K/uL (0-0.5); Absolute Lymphocytes (CBC) 1.7 K/uL (0.7-4.9); Absolute Monocytes 0.6 K/uL (0.1-1.3); Absolute Neutrophil 5.5 K/uL (1.8-8.0); Eosinophils % 6.6 % (0-4.4); Hematocrit 36.2 % (39.6-49.0); Hemoglobin 12.1 g/dL (13.6-17.9); Lymphocytes % 20.3 % (15.3-44.8); MCH 30.9 pg (27.0-35.0); MCHC 33.4 g/dL (32.0-36.0); MCV 92.4 fL (80-100); MPV 7.7 fL (7.6-11.3); Monocytes % 7.3 % (3.3-12.3); Neutrophils % 64.8 % (41.7-73.7); Platelets 142 thou/uL (152-406); RBC Red Blood Cell Count 3.92 M/uL (4.33-5.43); Red Cell Distribution Width 16.4 % (12.1-15.2)
[2024-01-11 14:32] LABS: Anion Gap 7.8 mEq/L (5.0-15.0); Potassium 4.8 mEq/L (3.5-5.1)
--- NOTE | 2024-01-11 14:55 | ER ---
Nurse's Notes [facility] Name: Karlos Leblanc Age: 58 yrs Sex: Male : 1965 Arrival Date: 01/11/2024 Time: 13:36 Bed 14 Private MD: Diagnosis: LE wound infection Presentation: 01/10 13:51 Chief complaint: EMS states: Referred here by primary care for chronic infections to rs5 wounds on lower extremities bilat. Coronavirus screen: At this time, the client does not indicate any symptoms associated with coronavirus-19. Ebola Screen: No symptoms or risks identified at this time. Initial Sepsis Screen: Does the patient meet any 2 criteria? No. Patient's initial sepsis screen is negative. Does the patient have a suspected source of infection? No. Patient's initial sepsis screen is negative. Risk Assessment: Do you want to hurt yourself or someone else? Patient reports no desire to harm self or others. Onset of symptoms was January 11, 2024. 13:51 Method Of Arrival: EMS: [facility] rs 13:51 Acuity: KENIA 3 rs5 Historical: - Allergies: 13:49 NKDA; rs5 - PMHx: 13:49 Hypertension; Myocardial infarction; Seizures; Chronic obstructive lung disease; rs5 - PSHx: 13:49 Left Leg Amputation (below the knee); cardiac stents; Right toes amputation; rs5 - Immunization history:: Adult Immunizations up to date. - Infectious Disease History:: Denies. - Social history:: Smoking status: Patient/guardian denies using tobacco, but has a distant history of tobacco abuse. Screenin:46 [facility] ED Fall Risk Assessment (Adult) History of falling in the last 3 months, rs5 including since admission No falls in past 3 months (0 pts) Confusion or Disorientation No (0 pts) Intoxicated or Sedated No (0 pts) Impaired Gait Yes (1 pt) Mobility Assist Device Used Yes (1 pt) Altered Elimination No (0 pt) Score/Fall Risk Level 0 - 2 = Low Risk Oriented to surroundings, Maintained a safe environment. Abuse screen: Denies threats or abuse. Nutritional screening: No deficits noted. Tuberculosis screening: No symptoms or risk factors identified. Assessment: 13:46 General: Appears in no apparent distress. uncomfortable, Behavior is cooperative. Pain: rs5 Complains of pain in lower extremitities bilat Pain does not radiate. Pain currently is 9 out of 10 on a pain scale. Quality of pain is described as aching, Is continuous. Neuro: Level of Consciousness is awake, alert, obeys commands, Oriented to person, place, time, situation. Cardiovascular: Patient's skin is warm and dry. 13:46 Respiratory: Airway is patent Respiratory effort is even, unlabored, Respiratory rs5 pattern is regular, symmetrical. GI: Abdomen is round non-distended, Abd is soft and non tender X 4 quads. : No signs and/or symptoms were reported regarding the genitourinary system. EENT: No signs and/or symptoms were reported regarding the EENT system. 13:46 Derm: Skin is intact, Skin is pink, warm \T\ dry. Wound noted five quarter inch wounds rs5 noted to anterior and posterior aspects of pt's lower extremitity no drainage noted from wounds. 13:46 Musculoskeletal: Amputation of Other: above right ankle amputation of right lower rs5 extremity. 14:30 Reassessment: Patient and/or family updated on plan of care and expected duration. Pain rs5 level reassessed. Patient is alert, oriented x 3, equal unlabored respirations, skin warm/dry/pink. to bedside, wounds cleansed with antiseptic Vashe wound solution. pt tolerated wound care well. 15:59 Reassessment: Patient and/or family updated on plan of care and expected duration. Pain rs5 level reassessed. Patient is alert, oriented x 3, equal unlabored respirations, skin warm/dry/pink. Patient states feeling better. Patient states symptoms have improved. 16:20 Reassessment: Patient and/or family updated on plan of care and expected duration. Pain rs5 level reassessed. Patient is alert, oriented x 3, equal unlabored respirations, skin warm/dry/pink. Vital Signs: 13:51 BP 123 / 63; Pulse 78; Resp 17; Temp 98(O); Pulse Ox 98% on R/A; rs5 16:03 BP 125 / 68; Pulse 70; Resp 17; Pulse Ox 98% on R/A; rs5 16:30 BP 127 / 72; Pulse 73; Resp 17; Pulse Ox 98% on R/A; rs5 ED Course: 13:45 Patient arrived in ED. rs5 13:45 Aaron Meek PA is PHCP. cp 13:46 German Guerin MD is Attending Physician. cp 13:46 Patient has correct armband on for positive identification. Placed in gown. Bed in low rs5 position. Call light in reach. Side rails up X2. 13:47 Attending Physician role handed off by German Guerin MD ms3 13:47 Isaiah Zheng DO is Attending Physician. ms3 13:49 Junior Morales RN is Primary Nurse. rs5 13:53 Triage completed. rs5 14:00 No provider procedures requiring assistance completed. Inserted saline lock: 20 gauge rs5 in right forearm, using aseptic technique. Blood collected. Flushed with 10 mL NS. 14:54 Dionicio Guerin MD is Hospitalizing Provider. ms3 15:34 1523 CM received message from Mary Ann from [facility] that they were already in the ane process of getting him into [facility] for Wound Care, that [facility] has sent records to [facility]. 16:45 IV discontinued, intact, bleeding controlled, No redness/swelling at site. Pressure rs5 dressing applied. Administered Medications: 13:50 Drug: vancoMYCIN IVPB 1.5 grams IVPB at calculated rate once Route: IVPB; Rate: rs5 calculated rate; Site: right forearm; 14:10 Follow up: Response: No adverse reaction rs5 15:01 Follow up: IV Status: Completed infusion rs5 14:55 Drug: morphine IVP or IV 4 mg IVP once over 4 mins Route: IVP; Infused Over: 4 mins; rs5 Site: right forearm; 15:20 Follow up: Response: No adverse reaction; Pain is decreased rs5 15:23 Drug: vosh 1 application Topical once {Note: lower extremitites bilat .} Route: rs5 Topical; Site: wound; 15:40 Follow up: Response: No adverse reaction rs5 Medication: 14:22 VIS not applicable for this client. rs5 Outcome: 14:54 Decision to Hospitalize by Provider. ms3 16:45 Admitted to Med/surg accompanied by tech, rs5 16:45 Condition: stable 16:45 Instructed on the need for admit, Demonstrated understanding of instructions, 16:50 Patient left the ED. rs5 Signatures: Aaron Meek PA PA cp Isaiah Zheng DO DO ms3 Junior Morales RN RN rs5 Demetria Salazar RN RN ane Corrections: (The following items were deleted from the chart) 13:51 13:49 Social history: Smoking status: Patient denies any tobacco usage or history of. rs5 rs5 17:54 17:31 BP 122 / 72; Pulse 73bpm; Resp 17bpm; Pulse Ox 98% RA; rs5 rs5
--- NOTE | 2024-01-11 14:55 | EDPHYS ---
Physician Documentation [facility] Name: Karlos Leblanc Age: 58 yrs Sex: Male : 1965 Arrival Date: 01/11/2024 Time: 13:36 Bed 14 Private MD: ED Physician Isaiah Zheng HPI: 01/10 13:54 This 58 yrs old Male presents to ER via EMS with complaints of Wound Infection. ms3 13:54 58-year-old male with past medical history of hypertension, myocardial infarction, ms3 seizures, COPD presents to the emergency department for right foot infection. Patient states he has additional wounds.. Historical: - Allergies: 13:49 NKDA; rs5 - PMHx: 13:49 Hypertension; Myocardial infarction; Seizures; Chronic obstructive lung disease; rs5 - PSHx: 13:49 Left Leg Amputation (below the knee); cardiac stents; Right toes amputation; rs5 - Immunization history:: Adult Immunizations up to date. - Infectious Disease History:: Denies. - Social history:: Smoking status: Patient/guardian denies using tobacco, but has a distant history of tobacco abuse. ROS: 13:55 Constitutional: Negative for fever, and chills. Neck: Negative for injury, pain, and ms3 swelling, Cardiovascular: Negative for chest pain, and palpitations. Respiratory: Negative for shortness of breath, cough, wheezing, and pleuritic chest pain, Abdomen/GI: Negative for abdominal pain, nausea, vomiting, diarrhea, and constipation, 13:55 Skin: Positive for Ulcerations, Exam: 17:21 Constitutional: This is a well developed, well nourished patient who is awake, alert, ms3 and in no acute distress. Neck: Trachea midline, no cervical lymphadenopathy. Supple, full range of motion without nuchal rigidity, or vertebral point tenderness. No Meningismus. Chest/axilla: Normal chest wall appearance and motion. Nontender with no deformity. Cardiovascular: Regular rate and rhythm with a normal S1 and S2. No gallops, murmurs, or rubs. Normal PMI, no JVD. No pulse deficits. Respiratory: Lungs have equal breath sounds bilaterally, clear to auscultation and percussion. No rales, rhonchi or wheezes noted. No increased work of breathing, no retractions or nasal flaring. Abdomen/GI: Soft, non-tender, with normal bowel sounds. No distension or tympany. No guarding or rebound. No evidence of tenderness throughout. 17:21 Skin: cellulitis, that is moderate, on the Right lower leg, Ulcerations of right lower leg with central ulceration having purulence in the center with discoloration.. Vital Signs: 13:51 BP 123 / 63; Pulse 78; Resp 17; Temp 98(O); Pulse Ox 98% on R/A; rs5 16:03 BP 125 / 68; Pulse 70; Resp 17; Pulse Ox 98% on R/A; rs5 16:30 BP 127 / 72; Pulse 73; Resp 17; Pulse Ox 98% on R/A; rs5 MDM: 13:46 Patient medically screened. cp 17:21 Differential diagnosis: Venous stasis ulcers versus chronic ulcers for cellulitis. Data ms3 reviewed: vital signs, nurses notes, lab test result(s), and as a result, I will discharge patient. Management of patient was discussed with the following: Hospitalist: Dr Guerin. Material Analyst: Dr Lay. I considered the following discharge prescriptions or medication management in the emergency department Medications were administered in the Emergency Department. See MAR. Historians other than the Patient: EMS: [facility]. Counseling: I had a detailed discussion with the patient and/or guardian regarding the historical points, exam findings, and any diagnostic results supporting the discharge/admit diagnosis, lab results, the need for further work-up and treatment in the hospital. ED course: Discussed case with Dr. Lay and Dr Guerin. Dr. Guerin accepts patient for admission. All questions were answered. Discussed plan for admission with patient and he understands and agrees with plan.. 01/10 13:48 Order name: CBC with Diff; Complete Time: 14:50 ms3 01/10 13:48 Order name: BMP; Complete Time: 14:50 ms3 01/10 13:48 Order name: Blood Culture Adult (2) ms3 Administered Medications: 13:50 Drug: vancoMYCIN IVPB 1.5 grams IVPB at calculated rate once Route: IVPB; Rate: rs5 calculated rate; Site: right forearm; 14:10 Follow up: Response: No adverse reaction rs5 15:01 Follow up: IV Status: Completed infusion rs5 14:55 Drug: morphine IVP or IV 4 mg IVP once over 4 mins Route: IVP; Infused Over: 4 mins; rs5 Site: right forearm; 15:20 Follow up: Response: No adverse reaction; Pain is decreased rs5 15:23 Drug: vosh 1 application Topical once {Note: lower extremitites bilat .} Route: rs5 Topical; Site: wound; 15:40 Follow up: Response: No adverse reaction rs5 Disposition Summary: 01/11/24 14:54 Hospitalization Ordered Notes: Hospitalization Status: Inpatient Admission ms3 Provider: Dionicio Guerin ms3 Location: Telemetry/MedSurg (Inpatient) ms3 Condition: Stable ms3 Problem: new ms3 Symptoms: are unchanged ms3 Bed/Room Type: Standard ms3 Room Assignment: [facility](01/11/24 16:17) em1 Diagnosis - LE wound infection ms3 Forms: - Medication Reconciliation Form ms3 - SBAR form ms3 - Leadership Thank You Letter ms3 Signatures: Dispatcher [employer] EDJay Omalley em1 Aaron Meek PA PA cp Sims, Marcus, DO DO ms3 Junior Morales RN RN rs5 Corrections: (The following items were deleted from the chart) 13:51 13:49 Social history: Smoking status: Patient denies any tobacco usage or history of. rs5 rs5 13:56 13:54 58-year-old male with past medical history of hypertension, myocardial ms3 infarction, seizures, COPD presents to the emergency department for foot infection.. ms3 16:02 14:54 ms3 em1 16:17 16:02 207 em1 em1
[2024-01-11] MEDS: VANCOMYCIN 1.5 GM in NA CHLORIDE 0.9% 500 ML IVPB ONE (15:00)
[2024-01-11] MEDS ORDERED: MORPHINE 4 MG/ML SYR ONE (15:05)
--- NOTE | 2024-01-11 16:38 | P.HP ---
Certification for Inpatient Patient admitted to: Inpatient With expected LOS: >2 Midnights Patient will require the following post-hospital care: None Practitioner: I am a practitioner with admitting privileges, knowledge of patient current condition, hospital course, and medical plan of care. Services: Services provided to patient in accordance with Admission requirements found in Title 42 Section 412.3 of the Code of Federal Regulations Patient History Date of Service: 01/11/24 Reason for admission: Right foot cellulitis/ulcerations History of Present Illness: 58-year-old male with history of seizures, nonhealing right foot ulcers with history of osteomyelitis, severe peripheral artery disease, chronic CHFunknown EF, COPD, CAD with previous PCI, hypertension, tobacco use disorder presents emergency department with chief complaint of infected wounds. He was at our hospital from 11/16 through 12/09 with treatment for right foot osteomyelitis. He recently completed a course of Levaquin/vancomycin on 01/01. He was sent over from group home [facility] to reevaluate his right foot wounds as they appear to be infected. Patient was evaluated in the emergency department his labs are significant for hemoglobin 12.1 hematocrit 36.2 platelet count 142 blood cultures were were obtained in the ER, general surgery evaluated patient in ER and recommends admission for likely debridement tomorrow morning Allergies No Known Allergies Allergy (Verified 11/17/23 03:52) Home Medications: Aspirin [Aspirin EC 81 MG] 81 mg PO DAILY 06/22/23 Atorvastatin Calcium 40 mg PO BEDTIME 06/22/23 Buspirone HCl 2 tab PO BID 06/22/23 Clopidogrel Bisulfate [Plavix*] 75 mg PO DAILY 06/22/23 Escitalopram Oxalate 20 mg PO DAILY 06/22/23 Levetiracetam [Keppra] 1.5 tab PO BID 06/22/23 Multivit-Min/Iron/Folic Acid/K [Multi-Day Plus Minerals Tablet] 1 tab PO DAILY 06/22/23 Sertraline [Zoloft*] 100 mg PO DAILY 06/22/23 methocarbamoL [Methocarbamol] 500 mg PO TID 06/22/23 PHENYTOIN ER Cap [Dilantin ER Cap*] 100 mg PO DAILY #30 cap 07/02/23 Gabapentin [Neurontin*] 200 mg PO TID #0 cap 12/10/23 Hydrocodone 7.5/APAP 325 [Thayne 7.5/325 mg*] 1 tab PO Q4H PRN #15 tab 12/10/23 Medihoney [Medihoney Woundcare Gel*] 1 appl TOP DAILY tube 12/10/23 - Past Medical/Surgical History Diabetic: No -: HTN -: CHF, diastolic dysfunction -: COPD -: CAD -: PVD -: Left & right partial foot amputation -: History of osteomyelitis -: History of drug use -: Alcohol abuse -: Tobacco abuse -: GERD -: Rt great toe & 2nd toe amputated-Dec 2015 -: Left partial foot amputation-January 2019 -: right partial foot amputation Psychosocial/ Personal History: Currently stays at [facility] under SNF - Family History Father -: Cancer Mother -: Cancer - Social History Smoking Status: Current every day smoker Alcohol use: No CD- Drugs: No Caffeine use: No Place of Residence: Home Review of Systems 10-point ROS is otherwise unremarkable Musculoskeletal: Leg Pain Physical Examination - Physical Exam General: Alert, In no apparent distress, Oriented x3 HEENT: Atraumatic, PERRLA, EOMI Neck: Supple, 2+ carotid pulse no bruit, No LAD Respiratory: Clear to auscultation bilaterally, Normal air movement Cardiovascular: Regular rate/rhythm, Normal S1 S2 Gastrointestinal: Normal bowel sounds, No tenderness Musculoskeletal: No tenderness, Other (Left BKA, right TMA) Integumentary: Other (Right foot stump erythematous with multiple ulcerations, necrotic tissue present) Neurological: Normal speech, Normal strength at 5/5 x4 extr, Normal tone, Normal affect - Studies Laboratory Data (last 24 hrs) 01/11/24 01/11/24 14:08 14:08 WBC 8.40 Hgb 12.1 L Hct 36.2 L Plt Count 142 L Sodium 136 Potassium 4.8 BUN 13 Creatinine 0.96 Glucose 132 H Assessment and Plan - Plan Assessment: RLE cellultis/ulcerations-history of nonhealing ulcerations, osteomyelitis in affected foot Seizure disorder Severe PAD Chronic diastolic congestive heart failure History of CAD with prior PCI History of COPD Hypertension Hyperlipidemia GERD Tobacco use disorder Plan: RLE cellultis/ulcerations-history of nonhealing ulcerations, osteomyelitis in affected foot NPO after midnight in anticipation of surgical intervention [facility] Continue antibioticsvancomycin Await further input from surgery after debridement Will get x-ray of right foot and arterial Doppler of lower extremities as well Seizure disorder Keppra and Dilantin continued Severe PAD Will obtain arterial Doppler, continue medications when verified/cleared by surgery Chronic diastolic congestive heart failure History of CAD with prior PCI History of COPD Hypertension Hyperlipidemia GERD Continue home medications once verified Tobacco use disorder Counseled on need for tobacco cessation will provide NicoDerm patch DVT PPX: SCD Code status: Full Discharge Plan: Home Plan to discharge in: Greater than 2 days - Advance Directives Does patient have a Living Will: No Does patient have a Durable POA for Healthcare: No - Code Status/Comfort Care Code Status Assessed: Yes (full code) Critical Care: No Time Spent Managing Pts Care (In Minutes): 60
[2024-01-11] MEDS ORDERED: ONDANSETRON 4 MG/2 ML VIAL IV PRN (17:02)
[2024-01-11 17:44] VITALS: BMI 26.1
[2024-01-11] MEDS: NICOTINE 14 MG/PAT TD SCH (17:56)
[2024-01-11] MEDS: MORPHINE 2 MG/ML SYR IV PRN (17:56)
[2024-01-11] MEDS: NA CHLORIDE 0.9% 1,000 ML IV SCH (17:56)
[2024-01-11] MEDS: levETIRAcetam 500 MG TAB PO SCH (20:05)
[2024-01-12] MEDS: VANCOMYCIN 1.5 GM in NA CHLORIDE 0.9% 500 ML IVPB SCH (00:08)
--- NOTE | 2024-01-12 08:05 | RAD REPORT ---
EXAM DESCRIPTION: US - Lower Extremity Arterial Bilat - 01/12/2024 6:55 am CLINICAL HISTORY: eval for pad COMPARISON: Lower Ext Angio dated 11/18/2023 FINDINGS: Color Doppler, grayscale, and spectral analysis was performed. Monophasic flow present in the right common femoral artery, superficial femoral artery, popliteal art xiao, posterior tibial artery, and dorsalis pedis artery. No occlusions identified. Monophasic flow present in the left common femoral artery and superficial femoral artery. The patient has had a prior below the knee amputation on the left. IMPRESSION: Monophasic flow throughout the right and left lower extremity arteries consistent with m oderate to severe peripheral vascular disease. Reference lower extremity runoff from 11/18/2023 for m ore detailed findings regarding the location of arterial stenoses.
[2024-01-12 08:13] LABS: Absolute Basophils 0.1 K/uL (0-0.5); Absolute Eosinophils 0.8 K/uL (0-0.5); Absolute Lymphocytes (CBC) 1.8 K/uL (0.7-4.9); Absolute Monocytes 0.9 K/uL (0.1-1.3); Absolute Neutrophil 4.6 K/uL (1.8-8.0); Eosinophils % 9.5 % (0-4.4); Hematocrit 34.9 % (39.6-49.0); Hemoglobin 11.5 g/dL (13.6-17.9); Lymphocytes % 22.5 % (15.3-44.8); MCH 30.6 pg (27.0-35.0); MCV 92.8 fL (80-100); Monocytes % 10.8 % (3.3-12.3); Neutrophils % 56.2 % (41.7-73.7); Platelets 146 thou/uL (152-406); RBC Red Blood Cell Count 3.76 M/uL (4.33-5.43); Red Cell Distribution Width 16.2 % (12.1-15.2)
[2024-01-12 08:21] LABS: Anion Gap 8.8 mEq/L (5.0-15.0); Potassium 4.8 mEq/L (3.5-5.1)
[2024-01-12] MEDS: PHENYTOIN ER 100 MG CAP PO SCH (08:37)
[2024-01-12] MEDS: NA CHLORIDE 0.9% 1,000 ML ONE ×2 (09:00→11:37)
[2024-01-12] MEDS: LIDOCAINE HCL/EPINEPHRINE 20 ML MDV ONE (09:51)
[2024-01-12] MEDS ORDERED: FENTANYL CITR 100 MCG/2 ML ONE (10:00)
[2024-01-12] MEDS ORDERED: MIDAZOLAM HCL 2 MG/2 ML INJ ONE (10:00)
[2024-01-12] MEDS ORDERED: propofoL 200 MG/20 ML VIAL IV ONE (10:00)
--- NOTE | 2024-01-12 10:48 | P.OP ---
Preoperative diagnosis: Multiple RIGHT lower extremity chronic wounds Postoperative diagnosis: Multiple RIGHT lower extremity chronic wounds Primary procedure: Excisional Debridement of Multiple RIGHT lower extremity chronic wounds Anesthesia: GETA + Local Estimated blood loss: <5cc Specimen: Cultures, Debridement Tissue Findings: Necrotic extensor tendons Complications: None Transferred to: Recovery Room Condition: Good
--- NOTE | 2024-01-12 11:00 | P.CNS ---
Date of Consult: 01/11/24 Date of Consultation: 01/12/2024 Brief History Of Present Illness: The patient is a 57-year-old man, who presents to the hospital with complaints of pain, swelling in his right foot chronic wounds, which he states has been treated for many months and continues to have pain, swelling, drainage, and chronic multiple wounds of this area without significant improvement. Past Medical History: Includes COPD, CHF with diastolic dysfunction, hypertension, coronary artery disease, peripheral vascular disease, left and right partial foot amputations, history of osteomyelitis, history of drug abuse, alcohol abuse, tobacco use, GERD. He has had right great toe and second toe amputations in 2016, left partial foot amputation in January 2019, right partial foot amputation. He had a left BKA in the past as well. Allergies: NO KNOWN DRUG ALLERGIES. Home Medications: Include Norvasc, aspirin, atorvastatin, BuSpar, Plavix, escitalopram, Keppra, Zoloft, methocarbamol, Santyl, Dawson 7.5, Augmentin, doxycycline, phenytoin. Family History: Significant for cancer. Social History: He denies current alcohol use, but does still smoke cigarettes. Review of Systems: A 10-point review of systems other than HPI, denies. Physical Examination: General: He is awake, alert, and oriented. Psychiatric: He is appropriate, conversive. HEENT: He is normocephalic, but he does have what appears to be a skin cancer lesion on the right cheek area below the right eye, which he states was previou sly excised and believes it was cancer, but not melanoma. Oropharynx is clear. He has very poor dentition with multiple teeth missing. Neck: Supple without JVD. Chest: Normal expansion and excursion. Cardiovascular: Regular rate and rhythm. Pulmonary: Clear to auscultation bilaterally. Abdomen: Soft, nontender. Extremities: On examination of the extremities, left lower extremity BKA is in place. Right lower extremity, he has discoloration cellulitis around the lower extremity below the knee, most significant around the foot area where there were multiple wounds along the first metatarsal region with exposed necrotic tendon on the lateral foot and on the medial foot. These 4 wounds are all open with fibrin necrosis superficially and some granulation tissue. There appears to be some discolored drainage from these, but no obvious drainable collections. Skin: He has multiple small abrasions elsewhere on his extremities, which were small. Ultrasound Vascular IMPRESSION: Monophasic flow throughout the right and left lower extremity arteries consistent with moderate to severe peripheral vascular disease. Reference lower extremity runoff from 11/18/2023 for more detailed findings regarding the location of arterial stenoses. Assessment And Plan: This is a 57-year-old man, who comes in with multiple medical problems and skin lesion of his face, which could be skin cancer. 1. Continue medical management with antibiotic coverage. 2. We will recommend ENT consultation for regarding a biopsy/resection of possible skin cancer of his right cheek region. 3. Continue antibiotic coverage and local wound care with Vashe, wraps, elevation of lower extremity. 4. Arterial venous duplex ultrasound of lower extremity for possible need for re-intervention from a vascular standpoint. 5. The patient will require debridement; I have explained the risks, benefits, and alternatives of the above-stated plan. The patient agreed to proceed as indicated.
[2024-01-12] MEDS: KETOROLAC 30 MG/ML INJ ONE (11:17)
--- NOTE | 2024-01-12 11:21 | OP ---
Date of Procedure: 01/12/2024 Surgeon: Roseann Lay MD, Preoperative Diagnosis: Multiple right lower extremity chronic wounds. Postoperative Diagnosis: Multiple right lower extremity chronic wounds. Procedure Performed: Excisional debridement of multiple right lower extremity chronic wounds. Anesthesia: General endotracheal. Estimated Blood Loss: 5 cc. Specimen: Culture sent for both aerobic, anaerobic speciation and debridement tissue. Findings: There were necrotic extensor compartment tendons and multiple other open wounds, approxima tely 4 open wounds, each measuring approximately 3 cm x 2 cm. There were at least 4 of these type wo unds over the dorsal foot and medial and lateral foot. Complications: None. Disposition: The patient was transferred to recovery room in good condition. Procedure In Detail: After informed consent was obtained, the patient was brought to the operating r oom, prepped and draped in the usual sterile fashion. After adequate anesthesia was achieved, I proc eeded first by taking down all the other previous chronic wounds that had significant slough and supe rficial necrosis using a curette down to good bleeding tissue. On the medial aspect, there was expos ed tendon as well, but it appeared viable at this time. I then proceeded to look at the proximal ext ensor tendons, which were obviously necrotic and had discharge consistent with infected necrosis. I cultured this first for aerobic, anaerobic speciation and then circumferentially sharply debrided the se necrotic tendons out until I got down to good, healthy, viable tissue and circumferentially dissec roseann the area with a 15 blade until all nonviable tissue was removed. The area was copiously irrigate d and hemostasis easily achieved with minimal electrocautery. All wounds with tissue exposure only a nd granulation tissue had been packed with Vashe and the 2 exposed tendon areas had Xeroform and sali ne damp to dry placed in these areas and the foot was wrapped with a sterile dressing and an Alvaro band age. The patient tolerated the procedure without incident or complication and transferred to PACU in good condition. All counts were correct at the end of the case. TK/MODL Voice ID: [id number] Report ID: [id number]
[2024-01-12] MEDS: FENTANYL CITR 100 MCG/2 ML ONE (11:23)
--- NOTE | 2024-01-12 13:43 | P.PN ---
Date of Service: 01/12/24 Subjective: No acute events overnight Plan for debridement today of right foot wound ROS: 10 point ROS as noted above, otherwise negative Physical exam GEN: Alert, oriented, NAD HEENT: Normal conjunctiva, sclera anicteric CV: Regular rate and rhythm, no edema Pulm: Nonlabored respirations on room air ABD: Soft, nontender, nondistended MSK: No joint tenderness left BKA, Integumentary: Erythema of the right foot with multiple ulcerations present including necrotic tissue Neuro: Normal speech, normal affect Vitals reviewed Assessment: RLE cellultis/ulcerations-history of nonhealing ulcerations, osteomyelitis in affected foot Seizure disorder Severe PAD Chronic diastolic congestive heart failure History of CAD with prior PCI History of COPD Hypertension Hyperlipidemia GERD Tobacco use disorder Plan: RLE cellultis/ulcerations-history of nonhealing ulcerations, osteomyelitis in affected foot [facility] Continue antibioticsvancomycin Plan for debridement of the right lower extremity today Seizure disorder Keppra and Dilantin continued Severe PAD Monophasic flow throughout the right and left lower extremity arteries consistent with moderate to severe peripheral vascular disease. Chronic diastolic congestive heart failure History of CAD with prior PCI History of COPD Hypertension Hyperlipidemia GERD Continue home medications once verified Tobacco use disorder Counseled on need for tobacco cessation will provide NicoDerm patch DVT PPX: SCD Code status: Full Discharge Plan: Home Plan to discharge in: Greater than 2 days Time Spent Managing Pts Care (In Minutes): 35
--- NOTE | 2024-01-12 14:45 | RAD REPORT ---
EXAM DESCRIPTION: RAD - Foot Right 3 View - 01/12/2024 2:27 pm CLINICAL HISTORY: eval right foot infection COMPARISON: Foot Right Wo Cont dated 11/19/2023; Foot Right 3 View dated 11/16/2023 FINDINGS/IMPRESSION: Partial amputation at the level of the proximal third of the metatarsals. Soft tissue wounds along the ventral aspect of the ankle. No evidence of osteomyelitis. Calcaneal spurs. M idfoot and hindfoot degenerative changes. Osteopenia .
[2024-01-13 05:41] LABS: Absolute Basophils 0.1 K/uL (0-0.5); Absolute Eosinophils 0.7 K/uL (0-0.5); Absolute Lymphocytes (CBC) 2.3 K/uL (0.7-4.9); Absolute Monocytes 0.7 K/uL (0.1-1.3); Absolute Neutrophil 3.8 K/uL (1.8-8.0); Basophils % 1.1 % (0-1.3); Eosinophils % 9.3 % (0-4.4); Hematocrit 32.9 % (39.6-49.0); Hemoglobin 11.1 g/dL (13.6-17.9); MCH 31.2 pg (27.0-35.0); MCHC 33.6 g/dL (32.0-36.0); MCV 92.9 fL (80-100); MPV 8.2 fL (7.6-11.3); Monocytes % 9.7 % (3.3-12.3); Neutrophils % 49.9 % (41.7-73.7); Nucleated Red Blood Cells % 0.1 % (0-0); Platelets 122 thou/uL (152-406); RBC Red Blood Cell Count 3.54 M/uL (4.33-5.43); Red Cell Distribution Width 16.4 % (12.1-15.2)
[2024-01-13 05:55] LABS: Anion Gap 10.7 mEq/L (5.0-15.0); Potassium 4.7 mEq/L (3.5-5.1)
--- NOTE | 2024-01-13 14:34 | P.PN ---
Date of Service: 01/13/24 Subjective: No acute events overnight Plan for debridement today of right foot wound ROS: 10 point ROS as noted above, otherwise negative Physical exam GEN: Alert, oriented, NAD HEENT: Normal conjunctiva, sclera anicteric CV: Regular rate and rhythm, no edema Pulm: Nonlabored respirations on room air ABD: Soft, nontender, nondistended MSK: No joint tenderness left BKA, Integumentary: Erythema of the right foot with multiple ulcerations present including necrotic tissue Neuro: Normal speech, normal affect Vitals reviewed Assessment: RLE cellultis/ulcerations-history of nonhealing ulcerations, osteomyelitis in affected foot S/P debridement 01/11 Seizure disorder Severe PAD Chronic diastolic congestive heart failure History of CAD with prior PCI History of COPD Hypertension Hyperlipidemia GERD Tobacco use disorder Plan: RLE cellultis/ulcerations-history of nonhealing ulcerations, osteomyelitis in affected foot S/P debridement 01/11 Blood cultures with no growth in 24 hours Continue antibioticsvancomycin Right foot x-ray not concerning for osteomyelitis at this time Had debridement on 01/[address] Lay No further surgical intervention is planned Wound care as ordered by surgery Should be okay for p.o. antibiotics Possible discharge tomorrow Seizure disorder Keppra and Dilantin continued Severe PAD Monophasic flow throughout the right and left lower extremity arteries consistent with moderate to severe peripheral vascular disease. Outpatient follow-up Chronic diastolic congestive heart failure History of CAD with prior PCI History of COPD Hypertension Hyperlipidemia GERD Continue home medications once verified Tobacco use disorder Counseled on need for tobacco cessation will provide NicoDerm patch DVT PPX: Will start Lovenox Code status: Full Discharge Plan: Home Plan to discharge in: 1-2 days Time Spent Managing Pts Care (In Minutes): 35
[2024-01-13] MEDS: VANCOMYCIN 1.5 GM in NA CHLORIDE 0.9% 500 ML IVPB SCH (18:02)
[2024-01-14 05:31] LABS: Absolute Eosinophils 0.7 K/uL (0-0.5); Absolute Lymphocytes (CBC) 1.9 K/uL (0.7-4.9); Absolute Monocytes 0.7 K/uL (0.1-1.3); Absolute Neutrophil 3.9 K/uL (1.8-8.0); Basophils % 0.7 % (0-1.3); Eosinophils % 9.3 % (0-4.4); Hematocrit 33.3 % (39.6-49.0); Hemoglobin 11.2 g/dL (13.6-17.9); Lymphocytes % 26.6 % (15.3-44.8); MCH 31.1 pg (27.0-35.0); MCHC 33.7 g/dL (32.0-36.0); MCV 92.1 fL (80-100); MPV 8.1 fL (7.6-11.3); Monocytes % 10.3 % (3.3-12.3); Neutrophils % 53.1 % (41.7-73.7); Nucleated Red Blood Cells % 0.1 % (0-0); Platelets 135 thou/uL (152-406); RBC Red Blood Cell Count 3.61 M/uL (4.33-5.43); Red Cell Distribution Width 16.1 % (12.1-15.2)
[2024-01-14 05:52] LABS: Anion Gap 11.5 mEq/L (5.0-15.0); Potassium 4.5 mEq/L (3.5-5.1)
[2024-01-14] MEDS: ENOXAPARIN 40 MG/0.4 ML SQ SCH (08:37)
--- NOTE | 2024-01-14 12:09 | P.PN ---
Date of Service: 01/14/24 Subjective: No acute events overnight Doing well postoperatively Complains of pain to right foot area ROS: 10 point ROS as noted above, otherwise negative Physical exam GEN: Alert, oriented, NAD HEENT: Normal conjunctiva, sclera anicteric CV: Regular rate and rhythm, no edema Pulm: Nonlabored respirations on room air ABD: Soft, nontender, nondistended MSK: No joint tenderness left BKA, Integumentary: Erythema of the right foot with multiple ulcerations present including necrotic tissue, dressing in place Neuro: Normal speech, normal affect Vitals reviewed Assessment: RLE cellultis/ulcerations-history of nonhealing ulcerations, osteomyelitis in affected foot S/P debridement 01/11 Seizure disorder Severe PAD Chronic diastolic congestive heart failure History of CAD with prior PCI History of COPD Hypertension Hyperlipidemia GERD Tobacco use disorder Plan: RLE cellultis/ulcerations-history of nonhealing ulcerations, osteomyelitis in affected foot S/P debridement 01/11 Blood cultures with no growth in 24 hours Continue antibioticsvancomycin Right foot x-ray not concerning for osteomyelitis at this time Had debridement on 01/[address] Lay No further surgical intervention is planned Wound care as ordered by surgery Proceed with discharge planning-okay for oral antibiotics per Dr. Lay Patient was previously at [facility]-ran out of fdc days, will not be able to return there He is working on long-term placement at [facility] but still needs to supply of financials Will likely need to be discharged to his brother's house versus [facility] Would benefit with home health/fdc/PT once he has a confirmed place to stay Seizure disorder Jimmy continued Severe PAD Monophasic flow throughout the right and left lower extremity arteries consistent with moderate to severe peripheral vascular disease. Outpatient follow-up Chronic diastolic congestive heart failure History of CAD with prior PCI History of COPD Hypertension Hyperlipidemia GERD Continue home medications once verified Tobacco use disorder Counseled on need for tobacco cessation will provide NicoDerm patch DVT PPX: Will start Lovenox Code status: Full Discharge Plan: Home Plan to discharge in: 1-2 days Time Spent Managing Pts Care (In Minutes): 35
[2024-01-15 05:27] LABS: Absolute Basophils 0.1 K/uL (0-0.5); Absolute Eosinophils 0.6 K/uL (0-0.5); Absolute Lymphocytes (CBC) 2.3 K/uL (0.7-4.9); Absolute Monocytes 0.7 K/uL (0.1-1.3); Absolute Neutrophil 3.4 K/uL (1.8-8.0); Basophils % 1.1 % (0-1.3); Eosinophils % 8.8 % (0-4.4); Hematocrit 32.7 % (39.6-49.0); Hemoglobin 11.1 g/dL (13.6-17.9); Lymphocytes % 32.1 % (15.3-44.8); MCH 31.3 pg (27.0-35.0); MCHC 33.9 g/dL (32.0-36.0); MCV 92.3 fL (80-100); Platelets 148 thou/uL (152-406); RBC Red Blood Cell Count 3.54 M/uL (4.33-5.43); Red Cell Distribution Width 15.6 % (12.1-15.2)
[2024-01-15 05:47] LABS: Anion Gap 12.5 mEq/L (5.0-15.0); Potassium 4.5 mEq/L (3.5-5.1)
[2024-01-15] MEDS: levoFLOXacin 750 MG TAB PO SCH (10:42)
[2024-01-15] MEDS: DOXYCYCLINE 100 MG CAP PO SCH (12:22)
--- NOTE | 2024-01-15 13:06 | P.PN ---
Date of Service: 01/15/24 Subjective: Out of bed and in the hallway in his wheel chair c/o foot pain ROS: 10 point ROS as noted above, otherwise negative Physical exam GEN: Alert and oriente3, NAD, afebrile HEENT: Normal conjunctiva, sclera anicteric CV: RRR, S1S2 present, no edema Pulm: Nonlabored respirations on room air, symmentrical chest wall movement ABD: Soft and benign on palpation, NT/ND MSK: No joint tenderness left BKA, right foot dressing CDI Integumentary: Erythema of the right foot with multiple ulcerations present including necrotic tissue, dressing in place CDI Neuro: Normal speech, normal affect Vitals reviewed Assessment: RLE cellultis/ulcerations-history of nonhealing ulcerations, osteomyelitis in affected foot S/P debridement 01/11 Seizure disorder Severe PAD Chronic diastolic congestive heart failure History of CAD with prior PCI History of COPD Hypertension Hyperlipidemia GERD Tobacco use disorder Plan: RLE cellultis/ulcerations-history of nonhealing ulcerations, osteomyelitis in affected foot S/P debridement 01/11 Blood cultures with no growth in 24 hours Right foot x-ray not concerning for osteomyelitis at this time Had debridement on 01/[address] Lay No further surgical intervention is planned Wound care as ordered by surgery Proceed with discharge planning-okay for oral antibiotics per Dr. Lay wound cultures growing gram positive and negative Stop vancomycin and started Doxy/Levaquin p.o. (01/14) Patient was previously at [facility]-ran out of jail days, will not be able to return there He is working on long-term placement at [place] but still needs to supply of financials Will likely need to be discharged to his brother's house versus [facility] Would benefit with home health/jail/PT once he has a confirmed place to stay Seizure disorder Keppra and Dilantin continued Severe PAD Monophasic flow throughout the right and left lower extremity arteries consistent with moderate to severe peripheral vascular disease. Outpatient follow-up Chronic diastolic congestive heart failure History of CAD with prior PCI History of COPD Hypertension Hyperlipidemia GERD Continue home medications once verified Tobacco use disorder Counseled on need for tobacco cessation will provide NicoDerm patch DVT PPX: Will start Lovenox Code status: Full Discharge Plan: Home Plan to discharge in: unclear concerning placement
[2024-01-16] MEDS: levoFLOXacin 750 MG TAB PO SCH (09:05)
--- NOTE | 2024-01-16 14:42 | P.PN ---
Date of Service: 01/16/24 Subjective: Sleeping, states he is being disturbed and wanted to sleep No acute events overnight no new complaints Apartment is available on Sunday ROS: 10 point ROS as noted above, otherwise negative Physical exam GEN: Alert and oriented x 3, no acute distress, afebrile HEENT: Normal conjunctiva, sclera anicteric CV: Regular rate and rhythm, S1 S2 present, no edema Pulm: clear breath sounds bilaterally, on room air, symmentrical chest wall movement ABD: Soft on palpation, NT/ND, bowel sounds present MSK: No joint tenderness left BKA, right foot dressing CDI Integumentary: Erythema of the right foot with multiple ulcerations present including necrotic tissue, dressing in place CDI Neuro: Normal speech, normal affect Vitals reviewed Assessment: RLE cellultis/ulcerations-history of nonhealing ulcerations, osteomyelitis in affected foot S/P debridement 01/11 Seizure disorder Severe PAD Chronic diastolic congestive heart failure History of CAD with prior PCI History of COPD Hypertension Hyperlipidemia GERD Tobacco use disorder Plan: RLE cellultis/ulcerations-history of nonhealing ulcerations, osteomyelitis in affected foot S/P debridement 01/11 Blood cultures with no growth in 24 hours Right foot x-ray not concerning for osteomyelitis at this time Had debridement on 01/[address] Lay No further surgical intervention is planned Wound care as ordered by surgery Proceed with discharge planning-okay for oral antibiotics per Dr. Lay wound cultures growing gram positive and negative Stop vancomycin and started Doxy/Levaquin p.o. (01/14) Patient was previously at [facility]-ran out of penitentiary days, will not be able to return there He is working on long-term placement at [place] but still needs to supply of financials Apartment will be available on Sunday Would benefit with home health/penitentiary/PT once he has a confirmed place to stay Seizure disorder continued Keppra and Dilantin Severe PAD Monophasic flow throughout the right and left lower extremity arteries consistent with moderate to severe peripheral vascular disease. Outpatient follow-up Chronic diastolic congestive heart failure History of CAD with prior PCI History of COPD Hypertension Hyperlipidemia GERD Continue home medications once verified Tobacco use disorder Counseled on need for tobacco cessation will provide NicoDerm patch DVT PPX: Will start Lovenox Code status: Full Discharge Plan: Home Plan to discharge in: Apartment available on Sunday
--- NOTE | 2024-01-17 11:04 | P.PN ---
Date of Service: 01/17/24 Subjective: Awake and feeling well no new complaints Apartment is available on Sunday ROS: 10 point ROS as noted above, otherwise negative Physical exam GEN: Awake, Alert, and oriented x 3, NAD, afebrile HEENT: Normal conjunctiva, sclera anicteric CV: NSR, S1 S2 present, no edema Pulm: clear breath sounds bilaterally, on RA, normal air movement ABD: Soft and Benign on palpation, normal active bowel sounds, NT/ND MSK: No joint tenderness left BKA, right foot dressing CDI Integumentary: Erythema of the right foot with multiple ulcerations present including necrotic tissue, dressing in place CDI Neuro: Normal speech, normal affect Vitals reviewed Assessment: RLE cellultis/ulcerations-history of nonhealing ulcerations, osteomyelitis in affected foot S/P debridement 01/11 Seizure disorder Severe PAD Chronic diastolic congestive heart failure History of CAD with prior PCI History of COPD Hypertension Hyperlipidemia GERD Tobacco use disorder Plan: RLE cellultis/ulcerations-history of nonhealing ulcerations, osteomyelitis in affected foot S/P debridement 01/11 Blood cultures with no growth in 24 hours Right foot x-ray not concerning for osteomyelitis at this time Had debridement on 01/[address] Lay No further surgical intervention is planned Wound care as ordered by surgery Proceed with discharge planning-okay for oral antibiotics per Dr. Lay wound cultures growing presumptive Bacteroides Fragilis (01/14) Stop vancomycin (01/14) Continue Doxy/Levaquin p.o. (01/14), added flagyl (01/15) Patient was previously at [facility]-ran out of intermediate days, will not be able to return there He is working on long-term placement at [place] but still needs to supply of financials Apartment will be available on Sunday (01/17) Would benefit with home health/intermediate/PT once he has a confirmed place to stay Seizure disorder continued Keppra and Dilantin Severe PAD Monophasic flow throughout the right and left lower extremity arteries consistent with moderate to severe peripheral vascular disease. Outpatient follow-up Chronic diastolic congestive heart failure History of CAD with prior PCI History of COPD Hypertension Hyperlipidemia GERD Continue home medications once verified Tobacco use disorder Counseled on need for tobacco cessation will provide NicoDerm patch DVT PPX: Lovenox started 01/13 Code status: Full Discharge Plan: Home Plan to discharge in: Apartment available on Sunday
[2024-01-17] MEDS: metroNIDAZOLE 500 MG TABLET PO SCH (13:32)
--- NOTE | 2024-01-18 18:48 | P.PN ---
Date of Service: 01/18/24 Subjective: Sleeping and conversing with his eyes closed No new complaints Waiting for Apartment confirmation ROS: 10 point ROS as noted above, otherwise negative Physical exam GEN: AAO x 3, NAD, afebrile HEENT: Normal conjunctiva, sclera anicteric CV: RRR, S1 S2 present, no edema Pulm: clear breath sounds bilaterally, on RA, normal air movement ABD: Soft on palpation, normal active bowel sounds, NT/ND MSK: No joint tenderness left BKA, right foot dressing CDI Integumentary: Erythema of the right foot, dressing in place CDI Neuro: Normal speech, normal affect Vitals reviewed Assessment: RLE cellultis/ulcerations-history of nonhealing ulcerations, osteomyelitis in affected foot S/P debridement 01/11 Seizure disorder Severe PAD Chronic diastolic congestive heart failure History of CAD with prior PCI History of COPD Hypertension Hyperlipidemia GERD Tobacco use disorder Plan: RLE cellultis/ulcerations-history of nonhealing ulcerations, osteomyelitis in affected foot S/P debridement 01/11 Blood cultures with no growth in 24 hours Right foot x-ray not concerning for osteomyelitis at this time Had debridement on 01/[address] Lay No further surgical intervention is planned Wound care as ordered by surgery Proceed with discharge planning-okay for oral antibiotics per Dr. Lay wound cultures growing presumptive Bacteroides Fragilis (01/14) Stop vancomycin (01/14) Continue Doxy/Levaquin p.o. (01/14), added flagyl (01/15) Patient was previously at [facility]-ran out of custodial days, will not be able to return there He is working on long-term placement at [place] but still needs to supply of financials Apartment will be available on Sunday (01/17) Would benefit with home health/custodial/PT once he has a confirmed place to stay Seizure disorder continued Keppra and Dilantin Severe PAD Monophasic flow throughout the right and left lower extremity arteries consistent with moderate to severe peripheral vascular disease. Outpatient follow-up Chronic diastolic congestive heart failure History of CAD with prior PCI History of COPD Hypertension Hyperlipidemia GERD Continue home medications once verified Tobacco use disorder Counseled on need for tobacco cessation, NicoDerm patch provided DVT PPX: Lovenox started 01/13 Code status: Full Discharge Plan: Home Plan to discharge in: Apartment available on Sunday
[2024-01-19 10:22] LABS: Absolute Basophils 0.1 K/uL (0-0.5); Absolute Eosinophils 0.7 K/uL (0-0.5); Absolute Lymphocytes (CBC) 1.9 K/uL (0.7-4.9); Absolute Monocytes 0.9 K/uL (0.1-1.3); Absolute Neutrophil 5.8 K/uL (1.8-8.0); Basophils % 1.2 % (0-1.3); Eosinophils % 7.6 % (0-4.4); Hematocrit 37.2 % (39.6-49.0); Hemoglobin 12.2 g/dL (13.6-17.9); Lymphocytes % 19.7 % (15.3-44.8); MCH 30.5 pg (27.0-35.0); MCHC 32.8 g/dL (32.0-36.0); MCV 93.1 fL (80-100); MPV 7.6 fL (7.6-11.3); Monocytes % 9.6 % (3.3-12.3); Neutrophils % 61.9 % (41.7-73.7); Nucleated Red Blood Cells % 0.1 % (0-0); Platelets 188 thou/uL (152-406); RBC Red Blood Cell Count 3.99 M/uL (4.33-5.43); Red Cell Distribution Width 16.1 % (12.1-15.2)
[2024-01-19 10:37] LABS: Anion Gap 10.5 mEq/L (5.0-15.0); Magnesium 1.9 mg/dL (1.6-2.4); Phosphorus 3.3 mg/dL (2.5-4.9); Potassium 4.5 mEq/L (3.5-5.1)
--- NOTE | 2024-01-19 13:40 | P.DS ---
Admission Date: 01/11/24 Discharge Date: 01/21/24 Disposition: DC HOME/HOME HEALTH CARE Discharge Condition: FAIR Reason for Admission: Right foot cellulitis/ulcerations Brief History of Present Illness: Diagnosis RLE cellultis/ulcerations-history of nonhealing ulcerations, osteomyelitis in affected foot S/P debridement 01/11 Seizure disorder Severe PAD Chronic diastolic congestive heart failure History of CAD with prior PCI History of COPD Hypertension Hyperlipidemia GERD Tobacco use disorder HPI 01/11/24 Karlos Leblanc is a 58-year-old male with history of seizures, nonhealing right foot ulcers with history of osteomyelitis, severe peripheral artery disease, chronic CHFunknown EF, COPD, CAD with previous PCI, hypertension, tobacco use disorder presents emergency department with chief complaint of infected wounds. He was at our hospital from 11/16 through 12/09 with treatment for right foot osteomyelitis. He recently completed a course of Levaquin/vancomycin on 01/01. He was sent over from [facility] to reevaluate his right foot wounds as they appear to be infected. Patient was evaluated in the emergency department his labs are significant for hemoglobin 12.1 hematocrit 36.2 platelet count 142 blood cultures were were obtained in the ER, general surgery evaluated patient in ER and recommends admission for likely debridement tomorrow morning Hospital Course: Karlos Leblanc is a pleasant 58 year old with a past medical history significant for seizures, nonhealing right foot ulcers with history of osteomyelitis, severe peripheral artery disease, chronic CHFunknown EF, COPD, CAD with previous PCI, hypertension, tobacco use disorder who was admitted to [facility] on 01/11/24 for nonhealing right foot wound. [facility] nonhealing right foot wound having completed IV antibiotics on 01/01. Dr. Lay evaluated and performed an excisional debridement of miltiple right lower extremity chronic wounds on 01/11. He has tolerated IV antibiotics and transitioned to PO antibiotics. He has tolerated daily dressing changes. He is on RA, independently transferring to his wheelchair and able to be mobile. Daily dressing changes: Medial aspect with tendon exposed cover with Xeroform damp to dry with saline. Dorsal exposed tendons also get Xeroform daily with damp to dry saline. All other wounds get Vashe damp to dry wrap with Kerlix Alvaro and elevate. On 01/21/24, Karlos was seen on morning rounds and deemed medically stable for discharge to [facility] with HH. Karlos was discharged with instructions to schedule follow-up appointments with PCP and DR. Lay. Karlos was provided prescriptions for doxycycline, Flagyl, Levaquin. Physical exam GEN: Alert and oriented x 3, NAD, afebrile HEENT: Normal conjunctiva, sclera anicteric CV: Regular rate and rhythm, S1 S2 present, no murmur noted no edema Pulm: clear breath sounds bilaterally, no chest wall movement, on room air ABD: Soft on palpation, bowel sounds present, NT/ND MSK: No joint tenderness left BKA, right foot dressing (CDI) Integumentary: Erythema of the right foot Neuro: Normal speech, normal affect Vital Signs/Physical Exam: Temp Pulse Resp BP Pulse Ox 97.8 F 71 16 127/61 100 01/19/24 12:00 01/19/24 12:00 01/19/24 12:00 01/19/24 12:00 01/19/24 12:00 Laboratory Data at Discharge: WBC 9.40 thou/uL (4.3-10.9) 01/19/24 10:17 Hgb 12.2 g/dL (13.6-17.9) L 01/19/24 10:17 Hct 37.2 % (39.6-49.0) L 01/19/24 10:17 Plt Count 188 thou/uL (152-406) 01/19/24 10:17 Sodium 136 mEq/L (136-145) 01/19/24 10:17 Potassium 4.5 mEq/L (3.5-5.1) 01/19/24 10:17 BUN 25 mg/dL (7-18) H 01/19/24 10:17 Creatinine 1.04 mg/dL (0.70-1.30) 01/19/24 10:17 Glucose 100 mg/dL (74-106) 01/19/24 10:17 Phosphorus 3.3 mg/dL (2.5-4.9) 01/19/24 10:17 Magnesium 1.9 mg/dL (1.6-2.4) 01/19/24 10:17 Home Medications: Medihoney [Medihoney Woundcare Gel*] 1 appl TOP DAILY tube 12/10/23 Doxycycline Hyclate 100 mg PO BID 21 Days #42 tab 01/19/24 levoFLOXacin [Levaquin*] 750 mg PO DAILY 21 Days #21 tab 01/19/24 metroNIDAZOLE [Flagyl*] 500 mg PO TID 21 Days #63 tab 01/19/24 Aspirin [Aspirin EC 81 MG] 81 mg PO DAILY #30 tab 01/21/24 Atorvastatin Calcium 40 mg PO BEDTIME #30 tab 01/21/24 Buspirone HCl 2 tab PO BID #60 tab 01/21/24 Clopidogrel Bisulfate [Plavix*] 75 mg PO DAILY #30 tab 01/21/24 Escitalopram Oxalate 20 mg PO DAILY #30 tab 01/21/24 Gabapentin [Neurontin*] 200 mg PO TID #120 cap 01/21/24 Hydrocodone 7.5/APAP 325 [Pacifica 7.5/325 mg*] 1 tab PO Q4H PRN #20 tab 01/21/24 Multivit-Min/Iron/Folic Acid/K [Multi-Day Plus Minerals Tablet] 1 tab PO DAILY #30 tab 01/21/24 PHENYTOIN ER Cap [Dilantin ER Cap*] 100 mg PO DAILY #30 cap 01/21/24 Sertraline [Zoloft*] 100 mg PO DAILY #30 tab 01/21/24 levETIRAcetam [Keppra*] 1,500 mg PO BID #180 tab 01/21/24 methocarbamoL [Methocarbamol] 500 mg PO TID #90 tab 01/21/24 New Medications: Aspirin [Aspirin EC 81 MG] 81 mg PO DAILY #30 tab Atorvastatin Calcium 40 mg PO BEDTIME #30 tab Buspirone HCl 2 tab PO BID #60 tab PHENYTOIN ER Cap [Dilantin ER Cap*] 100 mg PO DAILY #30 cap Doxycycline Hyclate 100 mg PO BID 21 Days #42 tab Escitalopram Oxalate 20 mg PO DAILY #30 tab metroNIDAZOLE [Flagyl*] 500 mg PO TID 21 Days #63 tab levETIRAcetam [Keppra*] 1,500 mg PO BID #180 tab levoFLOXacin [Levaquin*] 750 mg PO DAILY 21 Days #21 tab methocarbamoL [Methocarbamol] 500 mg PO TID #90 tab Multivit-Min/Iron/Folic Acid/K [Multi-Day Plus Minerals Tablet] 1 tab PO DAILY #30 tab Gabapentin [Neurontin*] 200 mg PO TID #120 cap Hydrocodone 7.5/APAP 325 [Pacifica 7.5/325 mg*] 1 tab PO Q4H PRN #20 tab PRN Reason: Pain Scale 8-10 (Severe) Clopidogrel Bisulfate [Plavix*] 75 mg PO DAILY #30 tab Sertraline [Zoloft*] 100 mg PO DAILY #30 tab Physician Discharge Instructions: Daily dressing changes: Medial aspect with tendon exposed cover with Xeroform damp to dry with saline. Dorsal exposed tendons also get Xeroform daily with damp to dry saline. All other wounds get Vashe damp to dry wrap with Kerlix Alvaro and elevate. 1. Please call and schedule a follow-up appointment with your PCP in 3-5 days - Please follow-up with your PCP for medication refills/adjustments 2. Please call and schedule a follow-up appointment with Dr. Lay in one week -Extensive necrosis and inflammation found on right foot -Dressing changed and antibiotics for 21 days as listed below 3. Continue regular diet 4. activity restrictions , fall precautions 5. Return to the ED if symptoms worsen New medications Doxycycline 100 mg p.o. twice daily x 21 days Flagyl 500 mg p.o. 3 times daily x 21 days Levaquin 750 mg p.o. daily x 21 days Activity: Non-weight bearing Followup: Faizan Lay MD [ACTIVE - CAN ADMIT] - Capo Gan MD [Primary Care Provider] -
--- NOTE | 2024-01-19 15:23 | P.PN ---
Date of Service: 01/19/24 Subjective: Doing well, in his wheelchair in the hallway No new complaints Unable to discharge, apartment will be ready on Sunday ROS: 10 point ROS as noted above, otherwise negative Physical exam GEN: Alert and oriented x 3, NAD, afebrile HEENT: Normal conjunctiva, sclera anicteric CV: Regular rate and rhythm, S1 S2 present, no edema Pulm: clear breath sounds bilaterally, symmetrical chest wall movement, on room air ABD: Soft on palpation, normal active bowel sounds, NT/ND MSK: No joint tenderness left BKA, right foot dressing CDI Integumentary: Erythema of the right foot Neuro: Normal speech, normal affect Vitals reviewed Assessment: RLE cellultis/ulcerations-history of nonhealing ulcerations, osteomyelitis in affected foot S/P debridement 01/11 Seizure disorder Severe PAD Chronic diastolic congestive heart failure History of CAD with prior PCI History of COPD Hypertension Hyperlipidemia GERD Tobacco use disorder Plan: RLE cellultis/ulcerations-history of nonhealing ulcerations, osteomyelitis in affected foot S/P debridement 01/11 Blood cultures with no growth in 24 hours Right foot x-ray not concerning for osteomyelitis at this time Had debridement on 01/[address] Lay No further surgical intervention is planned Wound care as ordered by surgery Proceed with discharge planning-okay for oral antibiotics per Dr. Lay wound cultures growing presumptive Bacteroides Fragilis (01/14) Stopped vancomycin (01/14) Continue Doxy/Levaquin p.o. (01/14), added flagyl (01/15)- total of four weekd to be completed Patient was previously at [facility]-ran out of assisted days, will not be able to return there He is working on long-term placement at [place] but still needs to supply of financials Apartment will be available on Sunday (01/17) Would benefit with home health/assisted/PT once he has a confirmed place to stay Seizure disorder continued Keppra and Dilantin Severe PAD Monophasic flow throughout the right and left lower extremity arteries consistent with moderate to severe peripheral vascular disease. Outpatient follow-up Chronic diastolic congestive heart failure History of CAD with prior PCI History of COPD Hypertension Hyperlipidemia GERD Continue home medications once verified Tobacco use disorder Counseled on need for tobacco cessation, NicoDerm patch provided DVT PPX: Lovenox started 01/13 Code status: Full Discharge Plan: Home Plan to discharge in: Apartment will be available Sunday
[2024-01-19] MEDS: HYDROCODONE/APAP 5/325 MG TAB PO PRN (15:26)
--- NOTE | 2024-01-20 19:45 | P.PN ---
Date of Service: 01/20/24 Subjective: Sleeping, no acute distress No new complaints apartment will be ready on Sunday ROS: 10 point ROS as noted above, otherwise negative Physical exam GEN: AAO x 3, NAD, afebrile HEENT: Normal conjunctiva, sclera anicteric CV: RRR, S1 S2 present, no edema Pulm: clear breath sounds bilaterally, normal air movement, on room air ABD: Soft on palpation, bowel sounds present, NT/ND MSK: No joint tenderness left BKA, right foot dressing CDI Integumentary: Erythema of the right foot Neuro: Normal speech, normal affect Vitals reviewed Assessment: RLE cellultis/ulcerations-history of nonhealing ulcerations, osteomyelitis in affected foot S/P debridement 01/11 Seizure disorder Severe PAD Chronic diastolic congestive heart failure History of CAD with prior PCI History of COPD Hypertension Hyperlipidemia GERD Tobacco use disorder Plan: RLE cellultis/ulcerations-history of nonhealing ulcerations, osteomyelitis in affected foot S/P debridement 01/11 Blood cultures with no growth in 24 hours Right foot x-ray not concerning for osteomyelitis at this time Had debridement on 01/[address] Lay No further surgical intervention is planned Wound care as ordered by surgery Proceed with discharge planning-okay for oral antibiotics per Dr. Lya wound cultures growing presumptive Bacteroides Fragilis (01/14) Stopped vancomycin (01/14) Continue Doxy/Levaquin p.o. (01/14), added flagyl (01/15)- total of four weeks to be completed Patient was previously at [facility]-ran out of group home days, will not be able to return there He is working on long-term placement at [place] but still needs to supply of financials Apartment will be available on Sunday (01/17) Would benefit with home health/group home/PT once he has a confirmed place to stay Seizure disorder continued Keppra and Dilantin Severe PAD Monophasic flow throughout the right and left lower extremity arteries consistent with moderate to severe peripheral vascular disease. Outpatient follow-up Chronic diastolic congestive heart failure History of CAD with prior PCI History of COPD Hypertension Hyperlipidemia GERD Continue home medications once verified Tobacco use disorder Counseled on need for tobacco cessation, NicoDerm patch provided DVT PPX: Lovenox started 01/13 Code status: Full Discharge Plan: Home Plan to discharge in: Apartment will be available Sunday
[2024-01-21 06:34] LABS: Absolute Basophils 0.1 K/uL (0-0.5); Absolute Eosinophils 0.8 K/uL (0-0.5); Absolute Lymphocytes (CBC) 2.5 K/uL (0.7-4.9); Basophils % 1.3 % (0-1.3); Eosinophils % 9.6 % (0-4.4); Hematocrit 36.6 % (39.6-49.0); Hemoglobin 12.1 g/dL (13.6-17.9); Lymphocytes % 29.3 % (15.3-44.8); MCH 30.8 pg (27.0-35.0); MCHC 33.1 g/dL (32.0-36.0); MCV 92.8 fL (80-100); MPV 7.8 fL (7.6-11.3); Monocytes % 11.8 % (3.3-12.3); Platelets 183 thou/uL (152-406); RBC Red Blood Cell Count 3.94 M/uL (4.33-5.43); Red Cell Distribution Width 15.8 % (12.1-15.2)
[2024-01-21 06:49] LABS: Anion Gap 9.1 mEq/L (5.0-15.0); Magnesium 2.1 mg/dL (1.6-2.4); Phosphorus 4.2 mg/dL (2.5-4.9); Potassium 4.1 mEq/L (3.5-5.1)
[2024-01-21 09:38] VITALS: BP 116/50; TEMP 97.6; O2SAT 97
== END 2024-01-21 11:38 | disposition home health service (06) | DRG 264 ==
LOC: ER 13:36 → ERHOLD 15:53 → 2ND 16:45
PROVIDERS: ADMIT Hospitalist; ATTEND Internal Medicine
PROC: 0JBN0ZZ Excision of Right Lower Leg Subcutaneous Tissue and Fascia, Open Approach (ICD-10-PCS; principal; 2024-01-12 10:30)
DX: I96 Gangrene, not elsewhere classified (principal); L03.115 Cellulitis of right lower limb; I50.32 Chronic diastolic (congestive) heart failure; L97.519 Non-pressure chronic ulcer of other part of right foot with unspecified severity; I11.0 Hypertensive heart disease with heart failure; J44.9 Chronic obstructive pulmonary disease, unspecified; E78.5 Hyperlipidemia, unspecified; K21.9 Gastro-esophageal reflux disease without esophagitis; I25.10 Atherosclerotic heart disease of native coronary artery without angina pectoris; I25.2 Old myocardial infarction; Z71.6 Tobacco abuse counseling; Z95.1 Presence of aortocoronary bypass graft; Z95.5 Presence of coronary angioplasty implant and graft; Z79.82 Long term (current) use of aspirin; Z79.890 Hormone replacement therapy; Z89.421 Acquired absence of other right toe(s); Z89.512 Acquired absence of left leg below knee; F17.200 Nicotine dependence, unspecified, uncomplicated; G40.909 Epilepsy, unspecified, not intractable, without status epilepticus
CPT/HCPCS: 36415; 80048; 80202; 82947; 83735; 84100; 85025; 87040; 87070; 87075; 87185; 87205; 88304; 93925; 96365; 96375; 99285; J1650; J2250; J2270; J2704; J3010; J7030; J7040

== ENCOUNTER 2024-01-27 17:12 | Inpatient (IN) | payer OTHER ==
--- NOTE | 2024-01-27 18:27 | RAD REPORT ---
EXAM DESCRIPTION: CT - [id number] - 01/27/2024 6:20 pm CLINICAL HISTORY: Trauma, head and neck injury. SEIZURE COMPARISON: <Comparisons> TECHNIQUE: Axial 5 mm thick images of the head were obtained. Axial 2 mm thick images of the cervical spine were obtained with sagittal and coronal reconstruction images generated and reviewed. All CT scans are performed using dose optimization technique as appropriate and may include automated exposure control or mA/KV adjustment according to patient size. FINDINGS: CT HEAD WITHOUT CONTRAST: No acute hemorrhage, hydrocephalus or extra-axial collection is identified.Mild generalized brain atr ophy is present with mild periventricular and deep white matter chronic microvascular ischemic change s.No areas of brain edema or midline shift. The paranasal sinuses and mastoids are essentially clear.The calvarium is intact. CT CERVICAL SPINE WITHOUT CONTRAST: No fracture or subluxation.Moderate lower cervical degenerative changes.No prevertebral soft tissues swelling is identified. Moderate atherosclerosis of both carotid systems. Enlarged 21 mm stone is see n in the right submandibular region. IMPRESSION: No acute intracranial or cervical spine findings. Large calculus suspected in the right submandibular region.
[2024-01-27 18:33] LABS: Absolute Lymphocytes (CBC) 0.6 K/uL (0.7-4.9); Absolute Monocytes 0.9 K/uL (0.1-1.3); Absolute Neutrophil 14.7 K/uL (1.8-8.0); Basophils % 0.1 % (0-1.3); Hematocrit 40.9 % (39.6-49.0); Hemoglobin 13.9 g/dL (13.6-17.9); MCH 30.4 pg (27.0-35.0); MCHC 33.9 g/dL (32.0-36.0); MCV 89.8 fL (80-100); MPV 7.3 fL (7.6-11.3); Monocytes % 5.4 % (3.3-12.3); Neutrophils % 90.5 % (41.7-73.7); Platelets 271 thou/uL (152-406); RBC Red Blood Cell Count 4.55 M/uL (4.33-5.43); Red Cell Distribution Width 15.5 % (12.1-15.2)
[2024-01-27 18:39] LABS: PT Prothrombin Time 11.8 SECONDS (9.4-12.5); PTT, Activated Partial Thromb 39.3 SECONDS (24.3-36.9); Protime INR 1.06; Specific Gravity 1.011 (1.005-1.030); Sqamous Epithelial <5 /HPF (None Seen); Urine Bacteria None Seen /HPF (<20); Urine Bilirubin NEGATIVE (Negative); Urine Blood 2+ (Negative); Urine Clarity Turbid (Clear); Urine Color Colorless (Yellow); Urine Culture Reflex Order NOT NEEDED; Urine Glucose TRACE (Negative); Urine Ketones NEGATIVE (Negative); Urine Microscopic Reflex YN ORDER UMIC; Urine Mucus Slight /HPF (None Seen); Urine Nitrite NEGATIVE (Negative); Urine Protein 2+ (Negative); Urine RBC <5 /HPF (None Seen); Urine Urobilinogen Normal (Normal); Urine WBC <5 /HPF (<5)
[2024-01-27 18:43] LABS: Barbiturates NEGATIVE (NEGATIVE); Benzodiazepines NEGATIVE (NEGATIVE); Cocaine NEGATIVE (NEGATIVE); METHAMPHETAM NEGATIVE (NEGATIVE); Methadone NEGATIVE (NEGATIVE); Opiates NEGATIVE (NEGATIVE); Phencyclidine NEGATIVE (NEGATIVE); THC Cannibis NEGATIVE (NEGATIVE)
[2024-01-27 18:52] LABS: ALT/SGPT 45 U/L (16-61); AST/SGOT 45 U/L (15-37); Albumin 3.5 g/dL (3.4-5.0); Albumin/Globulin Ratio 0.6 (1.1-1.8); Alkaline Phosphatase 103 U/L (45-117); Anion Gap 13.5 mEq/L (5.0-15.0); BUN Blood Urea Nitrogen 11 mg/dL (7-18); Bicarbonate 19 mEq/L (21-32); Bilirubin Total 0.3 mg/dL (0.2-1.0); Globulin 5.5 g/dL (2.3-3.5); Glomerular Filtration Rate 66 ml/min (=/>90); Glucose Level 132 mg/dL (74-106); Potassium 3.5 mEq/L (3.5-5.1); Sodium Level 135 mEq/L (136-145)
--- NOTE | 2024-01-27 18:52 | RAD REPORT ---
EXAM DESCRIPTION: RAD - Chest Single View - 01/27/2024 6:44 pm CLINICAL HISTORY: seizure Chest pain. COMPARISON: <Comparisons> FINDINGS: Portable technique limits examination quality. The lungs are grossly clear. The heart is normal in size. No displaced fractures.Chronic appearing de formity to the left shoulder. IMPRESSION: No acute intrathoracic process suspected.
--- NOTE | 2024-01-27 18:53 | RAD REPORT ---
EXAM DESCRIPTION: RAD - Ankle Right 2 View - 01/27/2024 6:44 pm CLINICAL HISTORY: PAIN COMPARISON: <Comparisons> FINDINGS: Previous midfoot amputation noted. Large soft tissue ulceration seen along the central asp ect of the distal leg. Soft tissue ulceration also noted along the stump laterally. Mild cortical thi ckening is present in the region which could indicate chronic osteomyelitis. Small plantar calcaneal spur. No acute fracture.
[2024-01-27] MEDS ORDERED: NA CHLORIDE 0.9% 0 ML ONE (18:54)
[2024-01-27 18:57] LABS: Albumin 3.6 g/dL (3.4-5.0); Albumin/Globulin Ratio 0.7 (1.1-1.8); Anion Gap 13.7 mEq/L (5.0-15.0); Bilirubin Total 0.3 mg/dL (0.2-1.0); Globulin 5.1 g/dL (2.3-3.5); Protein, Total 8.7 g/dL (6.4-8.2)
[2024-01-27 18:58] LABS: Bilirubin Direct < 0.2 mg/dL (0-0.2); Bilirubin Indirect, Calculated 0.1 mg/dL (0.2-0.8); Potassium 3.7 mEq/L (3.5-5.1)
[2024-01-27] MEDS ORDERED: VANCOMYCIN 500 MG/VIAL ONE (20:18)
[2024-01-27] MEDS ORDERED: CEFEPIME 2 GM VIAL ONE (20:18)
[2024-01-27] MEDS ORDERED: VANCOMYCIN 1 GM/VIAL ONE (20:18)
[2024-01-27] MEDS ORDERED: NA CHLORIDE 0.9% 250 ML ONE (20:19)
--- NOTE | 2024-01-27 20:19 | EDPHYS ---
Physician Documentation [facility] Name: Karlos Leblanc Age: 58 yrs Sex: Male : 1965 Arrival Date: 01/27/2024 Time: 17:12 Bed 20 Private MD: ED Physician Niles Alexander HPI: 01/26 17:35 This 58 yrs old Male presents to ER via EMS with complaints of Seizure, Head cp Injury-Adult. 17:35 The patient presents after having a single isolated seizure, that lasted an unknown cp period of time. Character of seizure(s): Loss of consciousness: the patient experienced loss of consciousness, Motor activity: generalized. 17:35 Seizure Hx: hx of seizure disorder. cp 17:35 Associated injury: The patient did not suffer any apparent associated injury. EMS care: cp C-collar. Current symptoms: headache, that is mild. Historical: - Allergies: 17:17 NKDA; hb - Home Meds: 17:17 amlodipine oral [Active]; Aspirin Oral [Active]; atorvastatin oral [Active]; hb clopidogrel oral [Active]; escitalopram oxalate oral [Active]; levetiracetam oral [Active]; Methocarbamol Oral [Active]; sertraline oral [Active]; - PMHx: 17:17 Chronic obstructive lung disease; Myocardial infarction; Hypertension; Seizures; hb - PSHx: 17:17 cardiac stents; Left Leg Amputation (below the knee); Right toes amputation; hb - Immunization history:: Adult Immunizations up to date. - Infectious Disease History:: Denies. - Social history:: Smoking status: . ROS: 17:40 Neuro: Positive for hx of seizure, cp 17:40 Eyes: Negative for injury, pain, redness, and discharge, cp 17:40 Constitutional: Negative for body aches, chills, fever, 17:40 Cardiovascular: Negative for chest pain, 17:40 Respiratory: Negative for cough, shortness of breath, wheezing, 17:40 Abdomen/GI: Negative for abdominal pain, vomiting, diarrhea, constipation, black/tarry stool, rectal bleeding, 17:40 All other systems are negative, Exam: 17:45 Constitutional: The patient appears in no acute distress, alert, awake, cp non-diaphoretic, non-toxic, well developed, well nourished, afebrile 17:45 Head/face: Noted is contusion, that is superficial, of the scalp, cp 17:45 Eyes: Periorbital structures: appear normal, Pupils: equal, round, and reactive to light and accomodation, Conjunctiva: normal, no exudate, no injection, Sclera: no appreciated abnormality, Lids and lashes: appear normal, bilaterally, 17:45 ENT: External ear(s): are unremarkable, Ear canal(s): are normal, clear, TM's: dullness, bilaterally, Nose: is normal, Mouth: Lips: moist, Oral mucosa: pink and intact, moist, Posterior pharynx: Airway: no evidence of obstruction, patent, 17:45 Neck: C-spine: vertebral tenderness, is not appreciated, crepitus, is not appreciated, 17:45 Chest/axilla: Inspection: normal, Palpation: is normal, no crepitus, no tenderness, 17:45 Cardiovascular: Rate: normal, Rhythm: regular, Edema: is not appreciated, JVD: is not cp appreciated, 17:45 Respiratory: the patient does not display signs of respiratory distress, Respirations: shallow respirations, that is mild, Breath sounds: are clear throughout, no decreased breath sounds, no stridor, no wheezing, 17:45 Abdomen/GI: Inspection: abdomen appears normal, Bowel sounds: active, all quadrants, Palpation: soft, in all quadrants, mild abdominal tenderness, in all quadrants, 17:45 Neuro: Orientation: to person, place \T\ time. Mentation: able to follow commands, slow to respond, Motor: moves all fours, no focal deficits, Sensation: no obvious gross deficits, 17:45 Musculoskeletal/extremity: left below the knee amputation. partial amputation of right cp foot. 17:45 Skin: multiple open wounds to right lower leg and right foot with erythema. 18:03 ECG was reviewed by the Attending Physician. cp Vital Signs: 17:14 BP 167 / 95; Pulse 106; Resp 16; Temp 97.5(TE); Pulse Ox 100% on R/A; Weight 104.33 kg; hb Height 6 ft. 11 in. ; Pain 5/10; 18:15 BP 173 / 65; Pulse 95; Resp 17; Pulse Ox 95% ; bp 19:05 BP 154 / 83; Pulse 103; Resp 18; Pulse Ox 98% ; rg5 20:37 BP 211 / 92; Pulse 125; Resp 19; Pulse Ox 96% on R/A; rg5 20:57 BP 189 / 98; Pulse 118; Resp 18; Pulse Ox 98% on 3 lpm NC; rg5 21:33 BP 161 / 73; Pulse 94; Resp 19; Temp 98(A); Pulse Ox 97% on 3 lpm NC; Pain 0/10; rg5 17:14 Body Mass Index 23.47 (104.33 kg, 210.82 cm) hb 17:14 Pain Scale: Adult hb 21:33 Pain Scale: Adult rg5 [place] Coma Score: 17:15 Eye Response: spontaneous(4). Motor Response: obeys commands(6). Verbal Response: bp oriented(5). Total: 15. MDM: 17:14 Patient medically screened. cp 18:00 Differential diagnosis: seizure, sepsis, osteomyelitis, cardiac arrythmia. 20:15 Data reviewed: vital signs, nurses notes, lab test result(s), EKG, radiologic studies, cp CT scan, plain films, and as a result, I will admit patient, administer antibiotics vancomycin, cefepime. 20:15 I considered the following discharge prescriptions or medication management in the emergency department Medications were administered in the Emergency Department. See MAR. Independent interpretation of the following test(s) in the Emergency Department EKG: See my EKG interpretation above. Care significantly affected by the following chronic conditions: Hypertension, Chronic Obstructive Pulmonary Disease. Counseling: I had a detailed discussion with the patient and/or guardian regarding the historical points, exam findings, and any diagnostic results supporting the discharge/admit diagnosis, lab results, the need for further work-up and treatment in the hospital. 20:45 Post IV fluid administration reassessment for Sepsis: Client prescribed 30 mL/kg IVF. Heart: Regular rate/rhythm noted. Lungs: Noted to be clear bilaterally. Current vital signs reviewed: Yes. 01/26 17:33 Order name: Acetaminophen; Complete Time: 19:39 01/26 19:39 Interpretation: Reviewed. 01/26 17:33 Order name: Basic Metabolic Panel; Complete Time: 19:39 01/26 19:39 Interpretation: Normal except: NA 135; CO2 19; GLUC 132; GFR 66. 01/26 17:33 Order name: CBC with Diff; Complete Time: 19:39 cp 01/26 19:40 Interpretation: Normal except: WBC 16.20; RDW 15.5; MPV 7.3; NERY% 90.5; LYM% 4.0; NEUT cp A 14.7; LYMA 0.6. 01/26 17:33 Order name: ETOH Level; Complete Time: 19:39 cp 01/26 17:33 Order name: Hepatic Function; Complete Time: 19:39 cp 01/26 19:40 Interpretation: Normal except: AST 45; IBILI, CALC 0.1; TP 9.0; GLOB 5.5; A/G 0.6. cp 01/26 17:33 Order name: PT-INR; Complete Time: 19:39 cp 01/26 17:33 Order name: Ptt, Activated; Complete Time: 19:39 cp 01/26 17:33 Order name: Salicylate; Complete Time: 19:39 cp 01/26 17:33 Order name: Urinalysis w/ reflexes; Complete Time: 19:39 cp 01/26 19:41 Interpretation: Normal except: UCLA Turbid; UGLUC TRACE; UBLD 2+; UPROT 2+. cp 01/26 17:33 Order name: Urine Drug Screen; Complete Time: 19:39 cp 01/26 17:33 Order name: Blood Culture Adult (2) cp 01/26 17:33 Order name: CMP; Complete Time: 19:39 cp 01/26 19:40 Interpretation: Normal except: NA 135; CO2 19; GLUC 135; GFR 65; AST 45; TP 8.7; GLOB cp 5.1; A/G 0.7. 01/26 17:33 Order name: Lactate w/ 2H reflex if indic.; Complete Time: 20:12 cp 01/26 20:51 Order name: KEPPRA (LEVETIRACETAM) EDLA 01/26 20:58 Order name: Creatine Phosphokinase EDMS 01/26 20:58 Order name: Thyroid Stimulating Hormone EDLA 01/26 20:58 Order name: C-Reactive Protein EDMS 01/26 20:58 Order name: C-Reactive Protein EDMS 01/26 20:58 Order name: CBC with Automated Diff EDMS 01/26 20:58 Order name: CBC with Automated Diff EDMS 01/26 20:58 Order name: CBC with Automated Diff EDMS 01/26 20:58 Order name: CBC with Automated Diff EDMS 01/26 20:58 Order name: Comprehensive Metabolic Panel EDMS 01/26 20:58 Order name: Comprehensive Metabolic Panel EDMS 01/26 20:58 Order name: Comprehensive Metabolic Panel EDMS 01/26 20:58 Order name: Comprehensive Metabolic Panel EDMS 01/26 20:58 Order name: Comprehensive Metabolic Panel EDMS 01/26 20:58 Order name: Lipid Profile EDMS 01/26 20:58 Order name: Lipid Profile EDMS 01/26 20:58 Order name: Magnesium EDMS 01/26 20:58 Order name: Magnesium EDMS 01/26 20:58 Order name: Magnesium EDMS 01/26 20:58 Order name: Magnesium EDMS 01/26 20:59 Order name: Wound Culture EDMS 01/26 20:59 Order name: Blood Culture EDMS 01/26 21:47 Order name: Ghost Lactate-NO COLLECT Timer EDMS 01/26 17:33 Order name: Chest Single View XRAY; Complete Time: 19:39 cp 01/26 17:38 Order name: CT Head C Spine; Complete Time: 19:39 cp 01/26 19:41 Interpretation: Reviewed report. cp 01/26 17:39 Order name: XRAY Ankle RIGHT 2 view; Complete Time: 19:39 cp 01/26 20:58 Order name: MRA Foot Right EDLA 01/26 17:33 Order name: EKG; Complete Time: 17:34 cp 01/26 20:58 Order name: CONS Physician Consult EDMS 01/26 20:58 Order name: CONS [facility] Cons EDMS 01/26 17:33 Order name: EKG - Nurse/Tech; Complete Time: 18:23 cp 01/26 17:33 Order name: IV Saline Lock; Complete Time: 18:23 cp 01/26 17:33 Order name: Labs collected and sent; Complete Time: 18:23 cp 01/26 17:33 Order name: Suicide Screening ([place]); Complete Time: 17:39 cp 01/26 17:33 Order name: Accucheck; Complete Time: 18:23 cp 01/26 17:33 Order name: Cardiac monitoring; Complete Time: 18:23 cp 01/26 17:33 Order name: IV Saline Lock - Large Bore; Complete Time: 18:23 cp 01/26 17:33 Order name: O2 Per Protocol; Complete Time: 17:38 cp 01/26 17:33 Order name: O2 Sat Monitoring; Complete Time: 17:38 cp 01/26 17:33 Order name: Vital Signs; Complete Time: 17:38 cp EC:03 Rate is 95 beats/min. Rhythm is regular. TX interval is normal. QRS interval is normal. cp QT interval is normal. T waves are Inverted in lead aVR. Interpreted by me. Reviewed by me. Administered Medications: 18:45 Drug: NS 0.9% IV 1000 ml IV at 1 bolus Per protocol; 1000 mL bolus Route: IV; Rate: 1 bp bolus; Site: right forearm; 20:00 Drug: NS 0.9% IV (30 ml/kg) 30 ml/kg IV at bolus once; Sepsis Protocol Route: IV; Rate: rg5 bolus; Site: right antecubital; 20:15 Drug: Cefepime IVPB 2 grams IVPB at 200 ml/hr once over 30 mins; (mix in NS 100 mL) rg5 Route: IVPB; Rate: 200 ml/hr; Infused Over: 30 mins; Site: right antecubital; 21:36 Follow up: Response: No adverse reaction rg5 20:45 Drug: vancoMYCIN IVPB 1.5 grams IVPB at calculated rate once Route: IVPB; Rate: rg5 calculated rate; Site: left antecubital; 20:45 Drug: Ativan IVP 2 mg IVP once Route: IVP; Site: right forearm; rg5 21:35 Follow up: Response: No adverse reaction rg5 21:06 Drug: Keppra IV 1000 mg IV at calculated rate once Route: IV; Rate: calculated rate; rg5 Site: left antecubital; 21:35 Follow up: Response: No adverse reaction rg5 21:35 Follow up: Response: No adverse reaction rg5 Disposition Summary: 01/27/24 20:18 Hospitalization Ordered Notes: Hospitalization Status: Inpatient Admission cp Provider: Hugo Castle cp Location: Telemetry/MedSurg (Inpatient) cp Condition: Stable cp Problem: an ongoing problem cp Symptoms: have improved cp Bed/Room Type: Standard cp Room Assignment: 430(01/27/24 21:03) sp Diagnosis - Osteomyelitis, unspecified cp - Severe sepsis with septic shock cp - Other seizures cp Forms: - Medication Reconciliation Form cp - SBAR form cp - Leadership Thank You Letter cp Addendum: 02/03/2024 20:31 I was immediately available for consultation during this patient's visit. I did not e c2 personally see the patient or discuss the patient with the CHARO. . Signatures: Dispatcher [employer] EDMS Ameena Herron Corey, PA PA cp Latia Haney, RN RN hb Narciso Concepcion RN RN bp Niles Alexander MD MD ec2 Edu Barnes RN RN rg5 Daphne Alcala, RN RN pc2 Corrections: (The following items were deleted from the chart) 01/26 17:34 17:34 ACETAMINOPHEN+C.LAB.BRZ ordered. EDMS EDMS 17:34 17:34 BASIC METABOLIC PANEL+C.LAB.BRZ ordered. EDMS EDMS 17:34 17:34 CBC+H.LAB.BRZ ordered. EDMS EDMS 17:34 17:34 ETHANOL+C.LAB.BRZ ordered. EDMS EDMS 17:34 17:34 HEPATIC FUNCTION+C.LAB.BRZ ordered. EDMS EDMS 17:34 17:34 PROTIME (+INR)+COAG.LAB.BRZ ordered. EDMS EDMS 17:34 17:34 PTT, ACTIVATED+COAG.LAB.BRZ ordered. EDMS EDMS 17:34 17:34 SALICYLATE+C.LAB.BRZ ordered. EDMS EDMS 17:34 17:34 Urinalysis+U.LAB.BRZ ordered. EDMS EDMS 17:34 17:34 URINE DRUG SCREEN+UC.LAB.BRZ ordered. EDMS EDMS 17:34 17:34 BLOOD CULTURE*+BA.LAB.BRZ ordered. EDMS EDMS 17:34 17:34 COMPREHENSIVE METABOLIC PANEL+C.LAB.BRZ ordered. EDMS EDMS 17:34 17:34 LACTATE+C.LAB.BRZ ordered. EDMS EDMS 21:03 20:18 cp sp 01/27 20:46 01/26 17:45 Neck: C-spine: vertebral tenderness, is not appreciated, appreciated at C1 cp and C2, crepitus, is not appreciated, cp
--- NOTE | 2024-01-27 20:19 | ER ---
Nurse's Notes [facility] Name: Karlos Leblanc Age: 58 yrs Sex: Male : 1965 Arrival Date: 01/27/2024 Time: 17:12 Bed 20 Private MD: Diagnosis: Osteomyelitis, unspecified;Severe sepsis with septic shock;Other seizures Presentation: 01/26 17:14 Chief complaint: EMS states: Was sitting on mattress, fell backwards hitting head on hb hardwood floor. Friend reports seizure activity + loss of bladder. C collar in place, laceration to back of head dressed with Kerlix. Bleeding controlled. Coronavirus screen: At this time, the client does not indicate any symptoms associated with coronavirus-19. Ebola Screen: No symptoms or risks identified at this time. Initial Sepsis Screen: Does the patient meet any 2 criteria? No. Patient's initial sepsis screen is negative. Does the patient have a suspected source of infection? No. Patient's initial sepsis screen is negative. Risk Assessment: Do you want to hurt yourself or someone else? Patient reports no desire to harm self or others. Onset of symptoms was January 27, 2024. 17:14 Method Of Arrival: EMS: [facility] 17:14 Acuity: KENIA 3 hb Triage Assessment: 17:15 General: Appears in no apparent distress. ill, Behavior is calm, cooperative. Neuro: bp Reports SZ LIKE ACTIVITY. Historical: - Allergies: 17:17 NKDA; hb - Home Meds: 17:17 amlodipine oral [Active]; Aspirin Oral [Active]; atorvastatin oral [Active]; hb clopidogrel oral [Active]; escitalopram oxalate oral [Active]; levetiracetam oral [Active]; Methocarbamol Oral [Active]; sertraline oral [Active]; - PMHx: 17:17 Chronic obstructive lung disease; Myocardial infarction; Hypertension; Seizures; hb - PSHx: 17:17 cardiac stents; Left Leg Amputation (below the knee); Right toes amputation; hb - Immunization history:: Adult Immunizations up to date. - Infectious Disease History:: Denies. - Social history:: Smoking status: . Screenin:30 [facility] ED Fall Risk Assessment (Adult) History of falling in the last 3 months, bp including since admission Yes- physiologic fall (2 pts) Confusion or Disorientation No (0 pts) Intoxicated or Sedated No (0 pts) Impaired Gait Yes (1 pt) Mobility Assist Device Used No (0 pt) Altered Elimination No (0 pt) Score/Fall Risk Level 3 or more points = High Risk Oriented to surroundings. Abuse screen: Denies threats or abuse. Denies injuries from another. Nutritional screening: No deficits noted. Tuberculosis screening: No symptoms or risk factors identified. Assessment: 17:30 General: Appears unkempt, Behavior is calm, cooperative. Pain: Denies pain. Neuro: bp Level of Consciousness is awake, alert, obeys commands, Oriented to Appropriate for age. Cardiovascular: Rhythm is sinus tachycardia. Respiratory: No deficits noted. GI: No signs and/or symptoms were reported involving the gastrointestinal system. Injury Description: MX OPEN LESIONS ON BLE, MAGGOTS NOTED IN DRESSING. 19:10 Reassessment: No changes from previously documented assessment. Patient is alert, rg5 oriented x 3, equal unlabored respirations, skin warm/dry/pink. 20:30 Reassessment: No changes from previously documented assessment. Patient and/or family rg5 updated on plan of care and expected duration. Pain level reassessed. Patient is alert, oriented x 3, equal unlabored respirations, skin warm/dry/pink. Vital Signs: 17:14 BP 167 / 95; Pulse 106; Resp 16; Temp 97.5(TE); Pulse Ox 100% on R/A; Weight 104.33 kg; hb Height 6 ft. 11 in. ; Pain 5/10; 18:15 BP 173 / 65; Pulse 95; Resp 17; Pulse Ox 95% ; bp 19:05 BP 154 / 83; Pulse 103; Resp 18; Pulse Ox 98% ; rg5 20:37 BP 211 / 92; Pulse 125; Resp 19; Pulse Ox 96% on R/A; rg5 20:57 BP 189 / 98; Pulse 118; Resp 18; Pulse Ox 98% on 3 lpm NC; rg5 21:33 BP 161 / 73; Pulse 94; Resp 19; Temp 98(A); Pulse Ox 97% on 3 lpm NC; Pain 0/10; rg5 17:14 Body Mass Index 23.47 (104.33 kg, 210.82 cm) hb 17:14 Pain Scale: Adult hb 21:33 Pain Scale: Adult rg5 [place] Coma Score: 17:15 Eye Response: spontaneous(4). Motor Response: obeys commands(6). Verbal Response: bp oriented(5). Total: 15. ED Course: 17:13 Patient arrived in ED. hb 17:14 Narciso Concepcion, RN is Primary Nurse. bp 17:14 Aaron Meek PA is PHCP. cp 17:14 Kyle Kennedy MD is Attending Physician. cp 17:16 Triage completed. hb 17:21 Arm band placed on. hb 17:30 Patient has correct armband on for positive identification. Bed in low position. bp 18:15 Initial lab(s) drawn, by me, sent to lab. First set of blood cultures drawn by me, bp Second set of blood cultures drawn by me, Urine collected: clean catch specimen, clear, EKG done, by ED staff, reviewed by Aaron BACA. Inserted saline lock: 20 gauge in right forearm, using aseptic technique. Blood collected. 18:22 CT Head C Spine In Process Unspecified. EDMS 18:46 Chest Single View XRAY In Process Unspecified. EDMS 18:46 XRAY Ankle RIGHT 2 view In Process Unspecified. EDMS 19:14 Niles Alexander MD is Attending Physician. cp 19:30 Allergy band placed. rg5 19:30 Provided Education on: need for admit. rg5 19:30 Seizure precautions initiated. rg5 19:48 Warm blanket given. oe 19:48 Placed in gown. Side rails up X2. oe 19:49 Linen changed. oe 20:16 Hugo Castle MD is Hospitalizing Provider. cp 20:30 Awaiting bed assignment. rg5 20:30 No provider procedures requiring assistance completed. Inserted saline lock: 20 gauge rg5 in left forearm, using aseptic technique. Flushed with 10 mL NS Patient admitted, IV remains in place. Administered Medications: 18:45 Drug: NS 0.9% IV 1000 ml IV at 1 bolus Per protocol; 1000 mL bolus Route: IV; Rate: 1 bp bolus; Site: right forearm; 20:00 Drug: NS 0.9% IV (30 ml/kg) 30 ml/kg IV at bolus once; Sepsis Protocol Route: IV; Rate: rg5 bolus; Site: right antecubital; 20:15 Drug: Cefepime IVPB 2 grams IVPB at 200 ml/hr once over 30 mins; (mix in NS 100 mL) rg5 Route: IVPB; Rate: 200 ml/hr; Infused Over: 30 mins; Site: right antecubital; 21:36 Follow up: Response: No adverse reaction rg5 20:45 Drug: vancoMYCIN IVPB 1.5 grams IVPB at calculated rate once Route: IVPB; Rate: rg5 calculated rate; Site: left antecubital; 20:45 Drug: Ativan IVP 2 mg IVP once Route: IVP; Site: right forearm; rg5 21:35 Follow up: Response: No adverse reaction rg5 21:06 Drug: Keppra IV 1000 mg IV at calculated rate once Route: IV; Rate: calculated rate; rg5 Site: left antecubital; 21:35 Follow up: Response: No adverse reaction rg5 21:35 Follow up: Response: No adverse reaction rg5 Medication: 17:30 VIS not applicable for this client. bp Outcome: 20:18 Decision to Hospitalize by Provider. cp 21:39 Admitted to Tele accompanied by nurse, with oxygen, with chart, rg5 21:39 Condition: stable 21:39 Demonstrated understanding of 22:06 Patient left the ED. pc2 Signatures: Dispatcher [employer] EDMS Aaron Meek PA PA cp Latia Haney, RN RN Hunter Webb Brian, RN RN bp Edu Barnes RN RN rg5 Daphne Alcala, RN RN pc2
[2024-01-27] MEDS ORDERED: NA CHLORIDE 0.9% 100 ML ONE ×2 (20:20→20:48)
[2024-01-27] MEDS ORDERED: NA CHLORIDE 0.9% 2,000 ML ONE (20:20)
[2024-01-27] MEDS ORDERED: LORazepam 2 MG/ML VIAL ONE (20:43)
[2024-01-27] MEDS ORDERED: LEVETIRACETAM 500 MG/5 ML VIAL IV ONE (20:46)
[2024-01-27] MEDS ORDERED: ALBUTEROL 2.5 MG/3 ML NEB SOL NEB PRN (20:50)
[2024-01-27] MEDS ORDERED: ACETAMINOPHEN 500 MG TAB PO PRN (20:50)
[2024-01-27] MEDS ORDERED: ONDANSETRON 4 MG/2 ML VIAL IV PRN (20:50)
[2024-01-27] MEDS ORDERED: LORazepam 2 MG/ML VIAL IV PRN (20:56)
[2024-01-27] MEDS: VANCOMYCIN 1 GM in NA CHLORIDE 0.9% 250 ML IVPB SCH (21:00)
--- NOTE | 2024-01-27 21:05 | P.HP ---
Certification for Inpatient Patient admitted to: Inpatient With expected LOS: >2 Midnights Patient will require the following post-hospital care: None Practitioner: I am a practitioner with admitting privileges, knowledge of patient current condition, hospital course, and medical plan of care. Services: Services provided to patient in accordance with Admission requirements found in Title 42 Section 412.3 of the Code of Federal Regulations Patient History Date of Service: 01/27/24 Reason for admission: Seizure activity History of Present Illness: 58-year-old male with past medical history of HTN, COPD, PVD status post left BKA as well as a right foot partial amputation, chronic right stump wound, seizure disorder on Keppra as well as Dilantin who developed a weakness seizure activity this afternoon. Episode was witnessed by friend.. Described as patient started to have tonic-clonic activity as well as falling down and hitting the head against the wall. Patient also reportedly have bladder incontinence also . EMS was activated and patient was brought to the ED. patient was initially awake and able to give response in the emergency room. On arrival in the ED patient vital signs were stable except for mild tachycardia to 106. He was afebrile. Patient had dressing over the right foot wound, on removal of the dressing by the ER team, and maggots were noted in the wound . Head CT shows no acute abnormality except for chronic calculus of the submandibular region. Ankle and foot x-ray shows chronic ulcers of the midfoot as well as stump area with changes suggestive of osteomyelitis. Laboratory workup shows elevated WBC of 16,000 with 90% neutrophilia, lactic acid was elevated at 4.1, BMP was unremarkable. Patient is being admitted for acute seizure activity as well as a right foot cellulitis with possible osteomyelitis. Patient had another episode of seizure while in the emergency room, witnessed by the nursing staff, IV Ativan given. Keppra loading dose initiated. At the time interview patient is very drowsy, difficult to arouse due to the sedation from Ativan and not able to give any history. History obtained from review of ER records and discussion with ER nursing staff Allergies No Known Allergies Allergy (Verified 11/17/23 03:52) Home Medications: Medihoney [Medihoney Woundcare Gel*] 1 appl TOP DAILY tube 12/10/23 Doxycycline Hyclate 100 mg PO BID 21 Days #42 tab 01/19/24 levoFLOXacin [Levaquin*] 750 mg PO DAILY 21 Days #21 tab 01/19/24 metroNIDAZOLE [Flagyl*] 500 mg PO TID 21 Days #63 tab 01/19/24 Aspirin [Aspirin EC 81 MG] 81 mg PO DAILY #30 tab 01/21/24 Atorvastatin Calcium 40 mg PO BEDTIME #30 tab 01/21/24 Buspirone HCl 2 tab PO BID #60 tab 01/21/24 Clopidogrel Bisulfate [Plavix*] 75 mg PO DAILY #30 tab 01/21/24 Escitalopram Oxalate 20 mg PO DAILY #30 tab 01/21/24 Gabapentin [Neurontin*] 200 mg PO TID #120 cap 01/21/24 Hydrocodone 7.5/APAP 325 [Edison 7.5/325 mg*] 1 tab PO Q4H PRN #20 tab 01/21/24 Multivit-Min/Iron/Folic Acid/K [Multi-Day Plus Minerals Tablet] 1 tab PO DAILY #30 tab 01/21/24 PHENYTOIN ER Cap [Dilantin ER Cap*] 100 mg PO DAILY #30 cap 01/21/24 Sertraline [Zoloft*] 100 mg PO DAILY #30 tab 01/21/24 levETIRAcetam [Keppra*] 1,500 mg PO BID #180 tab 01/21/24 methocarbamoL [Methocarbamol] 500 mg PO TID #90 tab 01/21/24 - Past Medical/Surgical History Diabetic: No -: HTN -: CHF, diastolic dysfunction -: COPD -: CAD -: PVD -: Left & right partial foot amputation -: History of osteomyelitis -: History of drug use -: Alcohol abuse -: Tobacco abuse -: GERD -: Rt great toe & 2nd toe amputated-Dec 2015 -: Left partial foot amputation-January 2019 -: right partial foot amputation Psychosocial/ Personal History: Currently stays at [facility] under SNF - Family History Father -: Cancer Mother -: Cancer - Social History Smoking Status: Light Tobacco smoker (1-9 cigarettes/day) Smoking therapy provided: Yes Patient receptive to therapy: No Alcohol use: No CD- Drugs: No Caffeine use: No Place of Residence: Home Review of Systems Integumentary: Other (Ulcers of the right foot) Neurological: Weakness Physical Examination - Physical Exam General: Other (Sedated, drowsy, on nasal cannula O2) HEENT: Atraumatic, Normocephalic, PERRLA Neck: Supple, 2+ carotid pulse no bruit, JVD not distended Respiratory: Clear to auscultation bilaterally, Normal air movement Cardiovascular: Normal pulses, Regular rate/rhythm, Normal S1 S2 Gastrointestinal: Normal bowel sounds, Soft and benign, Non-distended, No ascites, No tenderness Musculoskeletal: Other (Left BKA, right ray amputation stump lateral and anterior ulcers, multiple over right avalos also) Integumentary: Skin breakdown, Arterial ulcer (multiple circular ulcers over right avalos, lateral and anetrior right stump -degranulated base) Neurological: Sensation intact, Cranial nerves 3-12 intact (No pronator drift), Other (sedated, arouse but drowsy ) - Studies Laboratory Data (last 24 hrs) 01/27/24 01/27/24 01/27/24 18:15 18:15 18:15 WBC 16.20 H Hgb 13.9 Hct 40.9 Plt Count 271 PT 11.8 INR 1.06 APTT 39.3 H Sodium 135 L Potassium 3.7 BUN 11 Creatinine 1.27 Glucose 135 H Total Bilirubin 0.3 AST 45 H ALT 44 Alkaline Phosphatase 98 01/27/24 18:15 WBC Hgb Hct Plt Count PT INR APTT Sodium 135 L Potassium 3.5 BUN 11 Creatinine 1.26 Glucose 132 H Total Bilirubin 0.3 AST 45 H ALT 45 Alkaline Phosphatase 103 Assessment and Plan - Problems (Diagnosis) (1) COPD (chronic obstructive pulmonary disease) Current Visit: No Status: Acute (2) Seizure disorder Current Visit: No Status: Acute (3) Alcohol abuse Onset Date: 01/07/16 Current Visit: No Status: Chronic (4) Non-healing surgical wound Current Visit: No Status: Chronic Qualifiers: Encounter type: sequela Qualified Code(s): T81.89XS - Other complications of procedures, not elsewhere classified, sequela (5) PAD (peripheral artery disease) Current Visit: No Status: Chronic (6) Tobacco abuse Onset Date: 11/12/17 Current Visit: No Status: Chronic (7) Ulcer of right foot Current Visit: No Status: Resolved - Plan Impression Acute seizure activitymay be due to medication noncompliance Acute sepsis Leukocytosis Right foot wound cellulitisrule out osteomyelitis Left BKA Right partial amputation History of PVD History of alcohol usedenied daily drinking Self-neglect/failure to thrive Plan Will admit patient to inpatient will manage for the following # Acute seizure activityrecurrent, may be due to medication noncompliance Unclear if actually on both Keppra and Dilantin although noted on previous med reconciliation Follow Keppra level, also follow Dilantin level Status post IV Keppra 1 g loading in the ER today Resume Dilantin, load with 500 mg IV x1 today after level drawn Neurology consult in a.m. Seizure precautions Neurochecks Q6 #Acute sepsislikely due to right foot wound with cellulitis Obtain MRI of the foot to rule out osteomyelitis of the stump Start empirical Vanco/cefepime Start gentle IV fluid Monitor WBC trend Wound care consult obtain # History of PVDchronic tobacco usetobacco cessation, add nicotine patch #History of alcohol abuseAtivan as needed, monitor for withdrawal although patient reportedly denies daily drinking # Self-neglectgiven presence of maggots in wound suggesting chronic self- neglect May need case management for home status evaluation May need psych eval #Advance directivefull code #DVT prophylaxissubcutaneous Lovenox #Dispo possible hospital stay for more than 48 hours - Advance Directives Does patient have a Living Will: No Does patient have a Durable POA for Healthcare: No
[2024-01-27] MEDS ORDERED: LABETALOL 20 MG/4ML SYRINGE IV ONE (21:22)
[2024-01-27] MEDS ORDERED: LABETALOL 20 MG/4ML SYRINGE IV PRN (21:40)
[2024-01-27] MEDS: PHENYTOIN NA 100 MG/2 ML IV ONE (23:07)
[2024-01-27] MEDS: ATORVASTATIN 40 MG TAB PO SCH (23:08)
[2024-01-27] MEDS: NA CHLORIDE 0.9% 1,000 ML IV SCH (23:08)
[2024-01-27 23:47] VITALS: BMI 23.4
[2024-01-28 00:49] LABS: Magnesium 2.6 mg/dL (1.6-2.4); Thyroid Stimulating Hormone 0.795 uIU/mL (0.358-3.740)
[2024-01-28] MEDS: VANCOMYCIN 1 GM in NA CHLORIDE 0.9% 250 ML IVPB ONE (01:40)
[2024-01-28] MEDS: HYDRALAZINE HCL 20 MG/ML VIAL IV PRN (01:41)
[2024-01-28 05:40] LABS: Absolute Basophils 0.2 K/uL (0-0.5); Absolute Lymphocytes (CBC) 2.1 K/uL (0.7-4.9); Absolute Neutrophil 9.9 K/uL (1.8-8.0); Basophils % 1.2 % (0-1.3); Eosinophils % 0.3 % (0-4.4); Hematocrit 35.2 % (39.6-49.0); Hemoglobin 12.1 g/dL (13.6-17.9); MCH 30.4 pg (27.0-35.0); MCHC 34.4 g/dL (32.0-36.0); MCV 88.5 fL (80-100); MPV 7.2 fL (7.6-11.3); Monocytes % 7.6 % (3.3-12.3); Neutrophils % 74.9 % (41.7-73.7); Platelets 251 thou/uL (152-406); RBC Red Blood Cell Count 3.98 M/uL (4.33-5.43); Red Cell Distribution Width 15.4 % (12.1-15.2)
[2024-01-28 06:03] LABS: Albumin 3.1 g/dL (3.4-5.0); Albumin/Globulin Ratio 0.7 (1.1-1.8); Anion Gap 10.9 mEq/L (5.0-15.0); Bilirubin Total 0.6 mg/dL (0.2-1.0); C-Reactive Protein 48.1 mg/L (<3.00); Globulin 4.5 g/dL (2.3-3.5); Potassium 2.9 mEq/L (3.5-5.1); Protein, Total 7.6 g/dL (6.4-8.2)
[2024-01-28] MEDS: ENOXAPARIN 40 MG/0.4 ML SQ SCH (08:11)
[2024-01-28] MEDS: levETIRAcetam 500 MG TAB PO SCH (08:11)
[2024-01-28] MEDS: CEFEPIME 1 GM in NA CHLORIDE 0.9% 100 ML IV SCH (08:11)
[2024-01-28] MEDS: PHENYTOIN ER 100 MG CAP PO SCH (08:11)
[2024-01-28] MEDS: ASPIRIN EC 81 MG TAB PO SCH (08:11)
[2024-01-28] MEDS: CLOPIDOGREL 75 MG TABLET PO SCH (08:11)
[2024-01-28] MEDS: VANCOMYCIN 1.5 GM in NA CHLORIDE 0.9% 500 ML IVPB SCH (08:52)
[2024-01-28] MEDS ORDERED: VANCOMYCIN 1.75 GM in NA CHLORIDE 0.9% 500 ML IVPB SCH (09:00)
--- NOTE | 2024-01-28 09:34 | P.PN ---
Date of Service: 01/28/24 subjective Right foot ulcer, generalized weakness N.p.o. for surgery to eval Review of Systems 10 point review of system negative unless listed in HPI Physical Examination - Physical Exam Vital signs Reviewed General: Other response to verbal, no acute distress HEENT: Atraumatic, Normocephalic, PERRLA Neck: Supple, 2+ carotid pulse no bruit, JVD not distended Respiratory: Clear to auscultation bilaterally, Normal air movement Cardiovascular: Normal pulses, Regular rate/rhythm, Normal S1 S2 Gastrointestinal: Normal bowel sounds, Soft and benign, Non-distended, No ascites, No tenderness Musculoskeletal: Other (Left BKA, right ray amputation stump lateral and anterior ulcers, multiple over right avalos also) Integumentary: Skin breakdown, Arterial ulcer (multiple circular ulcers over right avalos, lateral and anetrior right stump -degranulated base) Neurological: Sensation intact, Cranial nerves 3-12 intact Assessment and Plan - Problems (Diagnosis) Acute seizure disorder Acute treatment noncompliance Will admit patient to inpatient will manage for the following # Acute seizure activityrecurrent, may be due to medication noncompliance Unclear if actually on both Keppra and Dilantin although noted on previous med reconciliation Follow Keppra level, also follow Dilantin level Status post IV Keppra 1 g loading in the ER today Resume Dilantin, load with 500 mg IV x1 today after level drawn Neurology consult in a.m. Seizure precautions Neurochecks Q6 Acute non-healing surgical wound Acute SIRS sepsis Acute leukocytosis Lactic acidosis Acute right foot wound with cellulitis rule out osteomyelitis Acute sepsislikely due to right foot wound with cellulitis Obtain MRI of the foot to rule out osteomyelitis of the stump Start empirical Vanco/cefepime Start gentle IV fluid Monitor WBC trend Wound care consult obtain X-ray FINDINGS: Previous midfoot amputation noted. Large soft tissue ulceration seen along the central aspect of the distal leg. Soft tissue ulceration also noted along the stump laterally. Mild cortical thickening is present in the region which could indicate chronic osteomyelitis. Small plantar calcaneal spur. No acute fracture. Chronic alcohol abuse History of alcohol abuseAtivan as needed, monitor for withdrawal although patient reportedly denies daily drinking Self-neglectgiven presence of maggots in wound suggesting chronic self-neglect May need case management for home status evaluation May need psych eval Peripheral arterial disease Chronic left BKA Chronic right partial amputation chronic Tobacco abuse Current Visit: No Status: Chronic Qualifiers: Encounter type: sequela Qualified Code(s): T81.89XS - Other complications of procedures, not elsewhere classified, sequela # History of PVDchronic tobacco usetobacco cessation, add nicotine patch Left BKA fall precaution Right partial amputation History of PVD History of alcohol usedenied daily drinking Self-neglect/failure to thrive Advance directivefull code DVT prophylaxissubcutaneous Lovenox Dispo possible hospital stay for more than 48 hours Time spent with patient 30-minute - Advance Directives Does patient have a Living Will: No Does patient have a Durable POA for Healthcare: No <Annelise Knight - Last Filed: 01/30/24 14:45> Chart has been reviewed. Events of the last 24 hours have been noted. Case discussed with CHARO. I performed a substantial part of the MDM during this patient's care today. I personally made or approved the documented management plan and acknowledge its risk of complications. I agree with the findings and documentation provided in the CHARO's notes Continue with antiepileptics. Outpatient neurology follow-up. Counseled regarding alcohol cessation. <Fili Ramirez - Last Filed: 02/08/24 02:31>
[2024-01-28] MEDS: POTASSIUM CL SA 10 MEQ TAB PO ONE (11:16)
[2024-01-28] MEDS: MORPHINE 2 MG/ML SYR IV PRN (11:17)
[2024-01-28] MEDS: KCL 20 MEQ/100 mL IVPB 20 MEQ/100 ML BAG IV SCH (11:39)
--- NOTE | 2024-01-28 22:56 | CON ---
Reason For Consultation: Consultation called because of seizure activity. History Of Present Illness: Mr. Leblanc is a 58-year-old patient with hypertension, COPD, peripheral vascular disease, status post right above-ankle amputation and left below-knee amputation, who has ch ronic right stump infection and has seizures and treated with Keppra and Dilantin. The patient repor tedly developed more weakness and seizure activity on the afternoon of 01/27/2024. It was witnessed by a friend. He reportedly started to have the tonoclonic activity, fell down, hit his head against the wall and had bladder incontinence. The Emergency Medical Services came. By the time they got th ere, the patient was awake and able to give a response to the Emergency Services. At [facility], the patient was mildly tachycardic, but was able to respond, had the dressing over the right wound manag ed. There were reportedly maggots noted in the wound. Head CT scan showed no acute abnormalities. There was chronic calculus in the submandibular region. The ankle and foot x-ray showed chronic ulce rs in the mid foot as well as the stump. There was finding suggestive of osteomyelitis. Blood work showed white blood cell count of 16,000, 90% neutrophils. Lactic acid elevated at 4. BMP unremarkab le. He was admitted to continue with management of his osteomyelitis and seizures. It is noted that the patient apparently had another witnessed seizure while in the emergency room. He was given the IV Ativan and Keppra loading, at that time was then done. He was somewhat drowsy after and the Keppr a was continued. Since the patient has been hospitalized, reported no additional seizures overnight. He continues to be on cefepime 1 g every 12 hours along with Keppra 1500 mg twice daily and Dilanti n 100 mg daily. His antibiotics include vancomycin 1.5 g every 12 hours along with cefepime 1 g ever y 12 hours. In addition, he is on stroke risk reduction with aspirin 81 mg daily, Plavix 75 mg daily , he has DVT risk reduction with Lovenox 40 mg daily, has Trandate, Apresoline for his blood pressure control. Past Medical History: As noted above. Allergies: NO KNOWN DRUG ALLERGIES. Current Laboratory Studies: White blood cell count 13.6, hemoglobin 12.1, platelets 251. INR 1.06. Sodium 138, potassium 2.9, chloride 111, BUN 10, creatinine 0.99, lactic acid today 2.2, glucose 121 , calcium 8.7, magnesium 2.6. Creatine kinase is 905. AST 45, ALT 36, alkaline phosphatase 75, LDL cholesterol 80, HDL 59, TSH 0.795. Urinalysis, trace glucose, 2+ blood, 2+ protein, turbid clarity. Urine toxicology screen is negative. Dilantin level is 2.1, significantly low. Review of Systems: As noted, the infection stabilized in the right foot. There is mild to moderate pain there and he di d deny, however, fevers or chills. He has myalgias and arthralgias. Physical Examination: Vital Signs: Blood pressure 135/63, pulse 84, respiratory rate 16, temperature 98.4, oxygen saturati on 98%. Extremities: Note, he has left voujb-ddr-eemz amputation and right [id number]-[id number] amputation. He d oes have significant ulcerations and various stages of infected-appearing wounds and the right foot i s open. Neuro: In terms of his cranial nerves, he does appear much older than his stated age of 58. Imaging Data: CT scan trauma series shows a large calculus suspected in the right submandibular ashok on. His ankle x-ray that is the right shows a midfoot amputation, large soft tissue ulcerations seen elmer g the central aspect of the distal leg and along with stump. Mild cortical thickening present which indicates chronic osteomyelitis. Small plantar calcaneal spur, and no acute fractures. Assessment: Mr. Leblanc is a 58-year-old patient with seizures in the setting of osteomyelitis and el ectrolyte derangement including hypokalemia of 2.9. He has the lactic acidosis from likely his infec tion in addition to potentially following a seizure. He has slightly elevated AST, elevated C-reacti ve protein. Plan: Continue the phenytoin and Keppra as indicated. Continue with his treatment of osteomyelitis as noted. Continue with Plavix, aspirin, and statin for stroke risk reduction. The patient will req uire likely physical therapy given his issues, but may require surgery prior to that. He does have a lready left vuhar-csq-aurb and will likely have right xcnsv-hjf-vace surgery. He is seeing Dr. Jj baptiste. SAM/RENATO Voice ID: [id number] Report ID: [id number]
--- NOTE | 2024-01-29 08:05 | P.PN ---
Date of Service: 01/29/24 subjective Right foot ulcer, pain controlled with as needed analgesics, afebrile Review of Systems 10 point review of system negative unless listed in HPI Physical Examination - Physical Exam Vital signs Reviewed General: Resting in bed with eyes closed, responds to verbal, no acute complaints, HEENT: Atraumatic, Normocephalic, PERRLA Neck: Supple, 2+ carotid pulse no bruit, JVD not distended Respiratory: Clear to auscultation bilaterally, Normal air movement Cardiovascular: Normal pulses, Regular rate/rhythm, Normal S1 S2 Gastrointestinal: Normal bowel sounds, Soft and benign, Non-distended, No ascites, No tenderness Musculoskeletal: Other (Left BKA, right ray amputation stump lateral and anterior ulcers, multiple over right avalos also) Integumentary: Skin breakdown, Arterial ulcer (multiple circular ulcers over right avalos, lateral and anetrior right stump -degranulated base) Neurological: Sensation intact, Cranial nerves 3-12 intact Assessment and Plan - Problems (Diagnosis) Acute seizure disorder improved Acute treatment noncompliance Will admit patient to inpatient will manage for the following # Acute seizure activityrecurrent, may be due to medication noncompliance Unclear if actually on both Keppra and Dilantin although noted on previous med reconciliation Follow Keppra level, also follow Dilantin level Status post IV Keppra 1 g loading in the ER today Resume Dilantin, load with 500 mg IV x1 today after level drawn Neurology consult in a.m. Seizure precautions Neurochecks Q6 Educated on medication compliance Acute non-healing surgical wound Acute SIRS sepsis Acute leukocytosis Lactic acidosis Acute right foot wound with cellulitis rule out osteomyelitis Acute sepsislikely due to right foot wound with cellulitis Obtain MRI of the foot to rule out osteomyelitis of the stump Start empirical Vanco/cefepime Start gentle IV fluid Monitor WBC trend Wound care consult obtain X-ray FINDINGS: Previous midfoot amputation noted. Large soft tissue ulceration seen along the central aspect of the distal leg. Soft tissue ulceration also noted along the stump laterally. Mild cortical thickening is present in the region which could indicate chronic osteomyelitis. Small plantar calcaneal spur. No acute fracture. 01/28 I&D of 5 right lower extremity wounds, educated on medication compliance with antibiotic Plan to discharge with home health with daily dressing changes with PT, nursing Chronic alcohol abuse History of alcohol abuseAtivan as needed, monitor for withdrawal although patient reportedly denies daily drinking Self-neglectgiven presence of maggots in wound suggesting chronic self-neglect May need case management for home status evaluation May need psych eval Peripheral arterial disease Chronic left BKA Chronic right partial amputation chronic Tobacco abuse Current Visit: No Status: Chronic Qualifiers: Encounter type: sequela Qualified Code(s): T81.89XS - Other complications of procedures, not elsewhere classified, sequela # History of PVDchronic tobacco usetobacco cessation, add nicotine patch Left BKA fall precaution Right partial amputation History of PVD History of alcohol usedenied daily drinking Self-neglect/failure to thrive Advance directivefull code DVT prophylaxissubcutaneous Lovenox Dispo possible hospital stay for more than 48 hours Time spent with patient 30-minute - Advance Directives Does patient have a Living Will: No Does patient have a Durable POA for Healthcare: No <Annelise Knight - Last Filed: 01/30/24 14:46> Chart has been reviewed. Events of the last 24 hours have been noted. Case discussed with CHARO. I performed a substantial part of the MDM during this patient's care today. I personally made or approved the documented management plan and acknowledge its risk of complications. I agree with the findings and documentation provided in the CHARO's notes Patient doing much better. Patient's clinical symptoms have improved. Anticipate discharge in the morning. <Fili Ramirez - Last Filed: 02/08/24 02:32>
[2024-01-29 09:01] LABS: Absolute Eosinophils 0.4 K/uL (0-0.5); Absolute Monocytes 0.6 K/uL (0.1-1.3); Absolute Neutrophil 4.8 K/uL (1.8-8.0); Basophils % 0.5 % (0-1.3); Eosinophils % 5.5 % (0-4.4); Hematocrit 33.8 % (39.6-49.0); Hemoglobin 11.3 g/dL (13.6-17.9); Lymphocytes % 25.6 % (15.3-44.8); MCH 30.4 pg (27.0-35.0); MCHC 33.5 g/dL (32.0-36.0); MCV 90.8 fL (80-100); MPV 7.5 fL (7.6-11.3); Monocytes % 7.3 % (3.3-12.3); Neutrophils % 61.1 % (41.7-73.7); Platelets 173 thou/uL (152-406); RBC Red Blood Cell Count 3.72 M/uL (4.33-5.43); Red Cell Distribution Width 15.7 % (12.1-15.2)
[2024-01-29 09:21] LABS: Albumin 2.8 g/dL (3.4-5.0); Albumin/Globulin Ratio 0.7 (1.1-1.8); Anion Gap 4.1 mEq/L (5.0-15.0); Bilirubin Total 0.4 mg/dL (0.2-1.0); Globulin 4.1 g/dL (2.3-3.5); Potassium 3.1 mEq/L (3.5-5.1); Protein, Total 6.9 g/dL (6.4-8.2)
[2024-01-29] MEDS: Ringers Lactate 1,000 ML IV ONE (12:25)
--- NOTE | 2024-01-29 12:40 | EKG ---
Test Date: 2024-01-27 Test Time: 17:57:02 Sane Rn: BP MEASUREMENT RESULTS: Intervals: Rate: 95 AZ: 154 QRSD: 82 QT: 370 QTc: 464 [place]ong: P: 67 AZ: 154 QRS: 20 T: 47 INTERPRETIVE STATEMENTS: Normal sinus rhythm Normal ECG Compared to ECG 08/26/2023 22:03:09 Sinus tachycardia no longer present Electronically Signed On 01-29-24 12:37:33 CDT by Jeff Rehman
[2024-01-29] MEDS ORDERED: LIDOCAINE 1% MPF 5 ML VIAL ONE (12:57)
[2024-01-29] MEDS ORDERED: propofoL 200 MG/20 ML VIAL IV ONE (12:57)
[2024-01-29] MEDS ORDERED: MIDAZOLAM HCL 2 MG/2 ML INJ ONE (12:58)
[2024-01-29] MEDS: FOSPHENYTOIN PE 100 MG/2 ML VIAL IV SCH (13:00)
[2024-01-29] MEDS: levETIRAcetam 1,000 MG in NA CHLORIDE 0.9% 100 ML IV SCH (13:00)
[2024-01-29] MEDS ORDERED: FENTANYL CITR 100 MCG/2 ML ONE (13:21)
[2024-01-29] MEDS: LIDOCAINE HCL/EPINEPHRINE 20 ML MDV ONE (13:31)
[2024-01-29] MEDS ORDERED: ONDANSETRON 4 MG/2 ML VIAL ONE (13:32)
--- NOTE | 2024-01-29 13:41 | P.OP ---
Preoperative diagnosis: RIGHT Foot Chronic Wounds Postoperative diagnosis: RIGHT Foot Chronic Wounds Primary procedure: Debridement of Multiple ~ 5 Wounds of the RIGHT Foot Anesthesia: GETA Estimated blood loss: <5cc Specimen: Debridement Tissue Findings: Soft Tissue necrosis Complications: None Transferred to: Recovery Room Condition: Good
--- NOTE | 2024-01-29 14:09 | OP ---
Date of Procedure: 01/29/2024 Surgeon: Faizan Lay MD, Preoperative Diagnosis: Right foot chronic wounds. Postoperative Diagnosis: Right foot chronic wounds. Procedure Performed: Debridement of multiple approximately 5 wounds of the right foot. Anesthesia: General endotracheal. Estimated Blood Loss: 5 cc. Specimen Removed: Debridement of tissue. Findings: Soft tissue necrosis over multiple wounds of the right foot. Complications: None. Disposition: The patient transferred to recovery room in good condition. Procedure In Detail: After informed consent was obtained, patient was brought to the operating room, prepped and draped in the usual sterile fashion. After adequate anesthesia was achieved, I inspecte d the area of the right foot which had obvious necrosis to both tendinous connections as well as soft tissue in the anterior foot, lateral foot and medial foot. The patient had a previous transmetatars al amputation of this area and there were approximately 5 wounds in this area for a total surface are a of approximately 20 sq cm. These areas were debrided with a combination of a curette as well as sh jessie dissection using scissors and after this was debrided, hemostasis was achieved with electrocauter y. The areas were copiously irrigated and then dried and a sterile dressing placed over top. The pa daniel tolerated procedure without incident or complication, and transferred to PACU in good condition. All counts were correct at the end of the case. ANNA/RENATO Voice ID: [id number] Report ID: [id number]
[2024-01-29] MEDS: FENTANYL CITR 100 MCG/2 ML ONE ×2 (14:13→14:23)
[2024-01-30 01:26] VITALS: O2SAT 96
[2024-01-30 08:04] LABS: Absolute Basophils 0.1 K/uL (0-0.5); Absolute Eosinophils 0.5 K/uL (0-0.5); Absolute Lymphocytes (CBC) 2.1 K/uL (0.7-4.9); Absolute Monocytes 0.6 K/uL (0.1-1.3); Absolute Neutrophil 4.9 K/uL (1.8-8.0); Basophils % 1.1 % (0-1.3); Eosinophils % 6.3 % (0-4.4); Hematocrit 32.9 % (39.6-49.0); Hemoglobin 11.1 g/dL (13.6-17.9); Lymphocytes % 25.5 % (15.3-44.8); MCH 30.6 pg (27.0-35.0); MCHC 33.6 g/dL (32.0-36.0); MPV 7.4 fL (7.6-11.3); Monocytes % 7.6 % (3.3-12.3); Neutrophils % 59.5 % (41.7-73.7); Platelets 162 thou/uL (152-406); RBC Red Blood Cell Count 3.62 M/uL (4.33-5.43); Red Cell Distribution Width 15.6 % (12.1-15.2)
[2024-01-30 08:18] LABS: Albumin 2.8 g/dL (3.4-5.0); Albumin/Globulin Ratio 0.7 (1.1-1.8); Anion Gap 11.5 mEq/L (5.0-15.0); Bilirubin Total 0.3 mg/dL (0.2-1.0); Globulin 4.1 g/dL (2.3-3.5); Magnesium 1.9 mg/dL (1.6-2.4); Potassium 3.5 mEq/L (3.5-5.1); Protein, Total 6.9 g/dL (6.4-8.2)
[2024-01-30] MEDS: VANCOMYCIN 2 GM in NA CHLORIDE 0.9% 500 ML IVPB SCH (11:32)
--- NOTE | 2024-01-30 14:36 | P.DS ---
Admission Date: 01/27/24 Discharge Date: 01/30/24 Reason for Admission: Seizure activity Consultations: 58-year-old male with past medical history of HTN, COPD, PVD status post left BKA as well as a right foot partial amputation, chronic right stump wound, seizure disorder on Keppra as well as Dilantin who developed a weakness seizure activity this afternoon. Episode was witnessed by friend.. Described as patient started to have tonic-clonic activity as well as falling down and hitting the head against the wall. Patient also reportedly have bladder incontinence also . EMS was activated and patient was brought to the ED. patient was initially awake and able to give response in the emergency room. On arrival in the ED patient vital signs were stable except for mild tachycardia to 106. He was afebrile. Patient had dressing over the right foot wound, on removal of the dressing by the ER team, and maggots were noted in the wound . Head CT shows no acute abnormality except for chronic calculus of the submandibular region. Ankle and foot x-ray shows chronic ulcers of the midfoot as well as stump area with changes suggestive of osteomyelitis. Laboratory workup shows elevated WBC of 16,000 with 90% neutrophilia, lactic acid was elevated at 4.1, BMP was unremarkable. Patient is being admitted for acute seizure activity as well as a right foot cellulitis with possible osteomyelitis. General: Other (Sedated, drowsy, on nasal cannula O2) HEENT: Atraumatic, Normocephalic, PERRLA Neck: Supple, 2+ carotid pulse no bruit, JVD not distended Respiratory: Clear to auscultation bilaterally, Normal air movement Cardiovascular: Normal pulses, Regular rate/rhythm, Normal S1 S2 Gastrointestinal: Normal bowel sounds, Soft and benign, Non-distended, No ascites, No tenderness Musculoskeletal: Other (Left BKA, right ray amputation stump lateral and anterior ulcers, multiple over right avalos also) Integumentary: Skin breakdown, Arterial ulcer (multiple circular ulcers over right avalos, lateral and anetrior right stump -degranulated base) Neurological: Sensation intact, Cranial nerves 3-12 intact Brief History of Present Illness: 58-year-old male with past medical history of HTN, COPD, PVD status post left BKA as well as a right foot partial amputation, chronic right stump wound, seizure disorder on Keppra as well as Dilantin who developed a weakness seizure activity this afternoon. Episode was witnessed by friend.. Described as patient started to have tonic-clonic activity as well as falling down and hitting the head against the wall. Patient also reportedly have bladder incontinence also . EMS was activated and patient was brought to the ED. patient was initially awake and able to give response in the emergency room. - Physical Exam General: Other oriented x 3 HEENT: Atraumatic, Normocephalic, PERRLA Neck: Supple, 2+ carotid pulse no bruit, JVD not distended Respiratory: Clear to auscultation bilaterally, Normal air movement Cardiovascular: Normal pulses, Regular rate/rhythm, Normal S1 S2 Gastrointestinal: Normal bowel sounds, Soft and benign, Non-distended, No ascites, No tenderness Musculoskeletal: Other (Left BKA, right ray amputation stump lateral and anterior ulcers, multiple over right avalos also) Integumentary: Skin breakdown, Arterial ulcer (multiple circular ulcers over right avalos, lateral and anetrior right stump -degranulated base) dressing to the lower extremity Neurological: Sensation intact, Cranial nerves 3-12 intact Hospital Course: 58-year-old male with past medical history of HTN, COPD, PVD status post left BKA as well as a right foot partial amputation, chronic right stump wound, seizure disorder on Keppra as well as Dilantin who developed a weakness seizure activity this afternoon. He was started on seizure medications, he was evaluated by surgery had I&D of the right lower extremity with surgery. He is tolerating diet, stable to discharge home with home health. Assessment Right lower extremity chronic foot wound Peripheral arterial disease Status post incision and drainage debridement ebridement of Multiple ~ 5 Wounds of the RIGHT Foot plan to discharge home with home health, daily wound changes, Discharge, as needed analgesics, as needed antiemetics. History right foot wound cellulitisrule out osteomyelitis Left BKA Right partial amputation History of EtOH, alcohol abuse disorder Seizure disorder on Keppra, noncompliance with seizure medication educated on medication compliance X-ray of the ankle FINDINGS: Previous midfoot amputation noted. Large soft tissue ulceration seen along the central aspect of the distal leg. Soft tissue ulceration also noted along the stump laterally. Mild cortical thickening is present in the region which could indicate chronic osteomyelitis. Small plantar calcaneal spur. No acute fracture. Continue home medicines as previously prescribed GOAL: Clear understanding of disease process INSTRUCTIONS: Physician Discharge Instructions: -Follow-up with Dr. Lay Surgery, call office for appt -Follow-up with PCP in 1 to 2 weeks -Please call Dr. Ramirez at [phone] if any questions regarding hospital stay -Please call nursing station at [phone] if any nursing or medication questions -Return to the emergency room if symptoms worsen Diet: ADA, low sodium Activity: Fall precautions <Annelise Knight - Last Filed: 01/30/24 14:54> Admission Date: 01/27/24 Discharge Date: 01/30/24 Hospital Course: Chart has been reviewed. Events of the last 24 hours have been noted. Case discussed with CHARO. I performed a substantial part of the MDM during this patient's care today. I personally made or approved the documented management plan and acknowledge its risk of complications. I agree with the findings and documentation provided in the CHARO's notes Continue with IV antibiotic therapy. Continue with wound care. Patient status post debridement of the foot. Continue with antibiotic regimen. <Fili Ramirez - Last Filed: 02/08/24 02:33> Disposition: [place] HOME/HOME HEALTH CARE Vital Signs/Physical Exam: Temp Pulse Resp BP Pulse Ox 97.0 F 84 15 107/65 94 01/30/24 08:00 01/30/24 08:00 01/30/24 08:00 01/30/24 08:00 01/30/24 08:00 Laboratory Data at Discharge: WBC 8.20 thou/uL (4.3-10.9) 01/30/24 07:41 Hgb 11.1 g/dL (13.6-17.9) L 01/30/24 07:41 Hct 32.9 % (39.6-49.0) L 01/30/24 07:41 Plt Count 162 thou/uL (152-406) 01/30/24 07:41 PT 11.8 SECONDS (9.4-12.5) 01/27/24 18:15 INR 1.06 01/27/24 18:15 APTT 39.3 SECONDS (24.3-36.9) H 01/27/24 18:15 Sodium 139 mEq/L (136-145) 01/30/24 07:41 Potassium 3.5 mEq/L (3.5-5.1) 01/30/24 07:41 BUN 8 mg/dL (7-18) 01/30/24 07:41 Creatinine 0.92 mg/dL (0.70-1.30) 01/30/24 07:41 Glucose 130 mg/dL (74-106) H 01/30/24 07:41 Magnesium 1.9 mg/dL (1.6-2.4) 01/30/24 07:41 Total Bilirubin 0.3 mg/dL (0.2-1.0) 01/30/24 07:41 AST 45 U/L (15-37) H 01/30/24 07:41 ALT 30 U/L (16-61) 01/30/24 07:41 Alkaline Phosphatase 71 U/L (45-117) 01/30/24 07:41 Triglycerides 113 mg/dL (<150) 01/28/24 04:53 Cholesterol 162 mg/dL (<200) 01/28/24 04:53 HDL Cholesterol 59 mg/dL (40-60) 01/28/24 04:53 Cholesterol/HDL Ratio 2.75 01/28/24 04:53 <Annelise Knight - Last Filed: 01/30/24 14:54> Vital Signs/Physical Exam: Temp Pulse Resp BP Pulse Ox 97.9 F 77 16 195/77 H 97 01/30/24 12:00 01/30/24 12:00 01/30/24 12:00 01/30/24 12:00 01/30/24 12:00 Laboratory Data at Discharge: WBC 8.20 thou/uL (4.3-10.9) 01/30/24 07:41 Hgb 11.1 g/dL (13.6-17.9) L 01/30/24 07:41 Hct 32.9 % (39.6-49.0) L 01/30/24 07:41 Plt Count 162 thou/uL (152-406) 01/30/24 07:41 PT 11.8 SECONDS (9.4-12.5) 01/27/24 18:15 INR 1.06 01/27/24 18:15 APTT 39.3 SECONDS (24.3-36.9) H 01/27/24 18:15 Sodium 139 mEq/L (136-145) 01/30/24 07:41 Potassium 3.5 mEq/L (3.5-5.1) 01/30/24 07:41 BUN 8 mg/dL (7-18) 01/30/24 07:41 Creatinine 0.92 mg/dL (0.70-1.30) 01/30/24 07:41 Glucose 130 mg/dL (74-106) H 01/30/24 07:41 Magnesium 1.9 mg/dL (1.6-2.4) 01/30/24 07:41 Total Bilirubin 0.3 mg/dL (0.2-1.0) 01/30/24 07:41 AST 45 U/L (15-37) H 01/30/24 07:41 ALT 30 U/L (16-61) 01/30/24 07:41 Alkaline Phosphatase 71 U/L (45-117) 01/30/24 07:41 Triglycerides 113 mg/dL (<150) 01/28/24 04:53 Cholesterol 162 mg/dL (<200) 01/28/24 04:53 HDL Cholesterol 59 mg/dL (40-60) 01/28/24 04:53 Cholesterol/HDL Ratio 2.75 01/28/24 04:53 <Fili Ramirez - Last Filed: 02/08/24 02:33> Time spent managing pt's care (in minutes): 55 <Annelise Knight - Last Filed: 01/30/24 14:54> <Fili Ramirez - Last Filed: 02/08/24 02:33> Home Medications: Medihoney [Medihoney Woundcare Gel*] 1 appl TOP DAILY tube 12/10/23 Doxycycline Hyclate 100 mg PO BID 21 Days #42 tab 01/19/24 levoFLOXacin [Levaquin*] 750 mg PO DAILY 21 Days #21 tab 01/19/24 metroNIDAZOLE [Flagyl*] 500 mg PO TID 21 Days #63 tab 01/19/24 Aspirin [Aspirin EC 81 MG] 81 mg PO DAILY #30 tab 01/21/24 Atorvastatin Calcium 40 mg PO BEDTIME #30 tab 01/21/24 Buspirone HCl 2 tab PO BID #60 tab 01/21/24 Clopidogrel Bisulfate [Plavix*] 75 mg PO DAILY #30 tab 01/21/24 Escitalopram Oxalate 20 mg PO DAILY #30 tab 01/21/24 Gabapentin [Neurontin*] 200 mg PO TID #120 cap 01/21/24 Multivit-Min/Iron/Folic Acid/K [Multi-Day Plus Minerals Tablet] 1 tab PO DAILY #30 tab 01/21/24 PHENYTOIN ER Cap [Dilantin ER Cap*] 100 mg PO DAILY #30 cap 01/21/24 Sertraline [Zoloft*] 100 mg PO DAILY #30 tab 01/21/24 levETIRAcetam [Keppra*] 1,500 mg PO BID #180 tab 01/21/24 methocarbamoL [Methocarbamol] 500 mg PO TID #90 tab 01/21/24 Hydrocodone 7.5/APAP 325 [[place] 7.5/325 mg*] 1 tab PO Q6HP PRN #30 tab 01/30/24 New Medications: Hydrocodone 7.5/APAP 325 [[place] 7.5/325 mg*] 1 tab PO Q6HP PRN #30 tab PRN Reason: Pain Scale 8-10 (Severe) Physician Discharge Instructions: 58-year-old male with past medical history of HTN, COPD, PVD status post left B KA as well as a right foot partial amputation, chronic right stump wound, seizure disorder on Keppra as well as Dilantin who developed a weakness seizure activity this afternoon. He was started on seizure medications, he was evaluated by surgery had I&D of the right lower extremity with surgery. He is tolerating diet, stable to discharge home with home health. Assessment Right lower extremity chronic foot wound Peripheral arterial disease Status post incision and drainage debridement ebridement of Multiple ~ 5 Wounds of the RIGHT Foot plan to discharge home with home health, daily wound changes, Discharge, as needed analgesics, as needed antiemetics. History right foot wound cellulitisrule out osteomyelitis Left BKA Right partial amputation History of EtOH, alcohol abuse disorder Seizure disorder on Keppra, noncompliance with seizure medication educated on medication compliance X-ray of the ankle FINDINGS: Previous midfoot amputation noted. Large soft tissue ulceration seen along the central aspect of the distal leg. Soft tissue ulceration also noted along the stump laterally. Mild cortical thickening is present in the region which could indicate chronic osteomyelitis. Small plantar calcaneal spur. No acute fracture. Continue home medicines as previously prescribed GOAL: Clear understanding of disease process INSTRUCTIONS: Physician Discharge Instructions: -Follow-up with Dr. Lay Surgery, call office for appt -Follow-up with PCP in 1 to 2 weeks -Please call Dr. Ramirez at [phone] if any questions regarding hospital stay -Please call nursing station at [phone] if any nursing or medication questions -Return to the emergency room if symptoms worsen Diet: ADA, low sodium Activity: Fall precautions Discharge medication Followup: NONE,NONE [Primary Care Provider] -
[2024-01-30 14:47] VITALS: BP 195/77; TEMP 97.9
== END 2024-01-30 16:01 | disposition home health service (06) | DRG 853 ==
LOC: ER 17:12 → 4TH 20:50
PROVIDERS: ADMIT Internal Medicine; ATTEND Hospitalist
PROC: 0JBQ0ZZ Excision of Right Foot Subcutaneous Tissue and Fascia, Open Approach (ICD-10-PCS; principal; 2024-01-29 13:15)
DX: A41.9 Sepsis, unspecified organism (principal); R65.21 Severe sepsis with septic shock; M86.172 Other acute osteomyelitis, left ankle and foot; L97.419 Non-pressure chronic ulcer of right heel and midfoot with unspecified severity; L03.115 Cellulitis of right lower limb; I50.32 Chronic diastolic (congestive) heart failure; E87.20 Acidosis, unspecified; I96 Gangrene, not elsewhere classified; I11.0 Hypertensive heart disease with heart failure; E87.6 Hypokalemia; K21.9 Gastro-esophageal reflux disease without esophagitis; J44.9 Chronic obstructive pulmonary disease, unspecified; G40.909 Epilepsy, unspecified, not intractable, without status epilepticus; I25.2 Old myocardial infarction; I25.10 Atherosclerotic heart disease of native coronary artery without angina pectoris; T81.89XS Other complications of procedures, not elsewhere classified, sequela; F17.210 Nicotine dependence, cigarettes, uncomplicated; R62.7 Adult failure to thrive; Z95.5 Presence of coronary angioplasty implant and graft; Z79.82 Long term (current) use of aspirin; Z68.23 Body mass index [BMI] 23.0-23.9, adult; Z79.02 Long term (current) use of antithrombotics/antiplatelets; Z79.899 Other long term (current) drug therapy; Z89.421 Acquired absence of other right toe(s); Z89.512 Acquired absence of left leg below knee; Z89.411 Acquired absence of right great toe; Z91.148 Patient's other noncompliance with medication regimen for other reason
CPT/HCPCS: 36415; 70450; 71045; 72125; 80048; 80053; 80061; 80076; 80143; 80177; 80179; 80185; 80202; 80307; 81001; 82077; 82550; 82947; 83605; 83735; 84443; 85025; 85610; 85730; 86140; 87040; 87070; 87077; 87186; 87205; 88304; 93005; 99285; J0360; J0692; J1165; J1650; J1953; J2001; J2250; J2270; J2405; J2704; J3010; J3480; J7030; J7040; J7050; J7120; Q2009

== ENCOUNTER 2024-02-01 22:56 | Emergency (ER) | payer OTHER ==
[2024-02-01] MEDS ORDERED: DIAZEPAM 5 MG TABLET ONE (23:31)
--- NOTE | 2024-02-02 05:11 | EDPHYS ---
Physician Documentation [facility] Name: Karlos Leblanc Age: 58 yrs Sex: Male : 1965 Arrival Date: 02/01/2024 Time: 22:56 Bed 20 Private MD: ED Physician Neto Cornelius HPI: 01/31 23:06 This 58 yrs old Male presents to ER via Unassigned with complaints of Skin sp4 Infection. 02/01 01:05 Patient presents with complaint of right lower extremity redness and chronic ischemic sp4 ulcers. Patient has history of recent admission 01/27/2024 01/30/2024 patient has history of hypertension, COPD, PVD, left below-knee amputation, right foot transmetatarsal amputation, chronic right stump wound with infection, seizure disorder, on Keppra and Dilantin, and otherwise poor mobility. Patient was admitted for right chronic lower extremity cellulitis, history of EtOH abuse, and seizure disorder. Medications at this time include Medihoney, doxycycline, levofloxacin, Flagyl, aspirin, atorvastatin, buspirone, clopidogrel, escitalopram, gabapentin, hydrocodone as needed, multivitamin, phenytoin, sertraline, Keppra, methocarbamol 500 3 times daily. Was apparently just discharged from assisted living facility from across the [address]. . Historical: - Allergies: 01/31 23:22 NKDA; ss - PMHx: 23:22 Chronic obstructive lung disease; Hypertension; Myocardial infarction; Seizures; ss - PSHx: 23:22 cardiac stents; Right toes amputation; Left Leg Amputation (below the knee); ss - Immunization history:: Adult Immunizations up to date. - Infectious Disease History:: Denies. - Social history:: Smoking status: Patient reports the use of cigarette tobacco products, smokes one-half pack cigarettes per day, Patient uses alcohol, claims drinking about a 6 pack/day. - Family history:: not pertinent. ROS: 02/01 01:05 Constitutional: Negative for fever, chills, and weight loss, positive right lower sp4 extremity redness and chronic ischemic ulcers Eyes: Negative for injury, pain, redness, and discharge, All other systems are negative, Exam: 01:05 Constitutional: This is a well developed, well nourished patient who is awake, alert, sp4 and in no acute distress patient is physically debilitated male, with left below-knee amputation in the right foot transmetatarsal amputation. Chronic right lower extremity ulcerations with redness and some mild cellulitis. This appears chronic. Head/Face: Normocephalic, atraumatic. Eyes: Pupils equal round and reactive to light, extra-ocular motions intact. Lids and lashes normal. Conjunctiva and sclera are not injected. Cornea within normal limits. Periorbital areas with no swelling, redness, or edema. ENT: Nares patent. No nasal discharge, no septal abnormalities noted. Tympanic membranes are normal and external auditory canals are clear. Oropharynx with no redness, swelling, or masses, exudates, or evidence of obstruction, uvula midline. Mucous membranes moist. Neck: Trachea midline, no thyromegaly or masses palpated, and no cervical lymphadenopathy. Supple, full range of motion without nuchal rigidity, or vertebral point tenderness. Chest/axilla: Normal chest wall appearance and motion. Nontender with no deformity. No lesions are appreciated. Cardiovascular: Regular rate and rhythm with a normal S1 and S2. No gallops, murmurs, or rubs. Normal PMI, no JVD. No pulse deficits. Respiratory: Lungs have equal breath sounds bilaterally, clear to auscultation and percussion. No rales, rhonchi or wheezes noted. No increased work of breathing, no retractions or nasal flaring. Abdomen/GI: Soft, with normal bowel sounds. No distension or tympany. No guarding or rebound. No evidence of tenderness throughout. Back: No spinal tenderness. No costovertebral tenderness. Skin: Warm, dry with normal turgor. Normal color with no rashes, no lesions, and no evidence of cellulitis. MS/ Extremity: Pulses equal, no cyanosis. Left below-knee amputation with healthy appearing stump , there is a right transmetatarsal foot amputation with several chronic appearing ischemic appearing ulcers, mild degree cellulitis Neuro: Awake and alert, GCS 15, oriented to person, place, time, and situation. Cranial nerves II-XII grossly intact. Motor strength 5/5 in all extremities. Sensory grossly intact. Psych: Awake, alert, with orientation to person, place and time. Behavior, mood, and affect are within normal limits Vital Signs: 01/31 23:19 BP 148 / 64; Pulse 89; Resp 20; Temp 98.6(O); Pulse Ox 100% on R/A; Weight 104.33 kg; ss Height 6 ft. 1 in. ; Pain 10; 02/01 00:30 BP 124 / 44; Pulse 81; Resp 18; Pulse Ox 95% ; cp4 01:30 BP 125 / 45; Pulse 74; Resp 18; Pulse Ox 95% ; cp4 01/31 23:19 Body Mass Index 30.34 (104.33 kg, 185.42 cm) ss 01/31 23:19 Pain Scale: Adult ss Patricia Coma Score: 01:05 Eye Response: spontaneous(4). Motor Response: obeys commands(6). Verbal Response: sp4 oriented(5). Total: 15. MDM: 01/31 23:26 Patient medically screened. sp4 02/01 01:05 Differential Diagnosis altered mental status, sepsis, flu. Data reviewed: vital signs, sp4 nurses notes, old medical records. ED course: Was advised to continue his prescribed medications that are doxycycline, Flagyl, and levofloxacin. 01/31 23:25 Order name: Wound Care; Complete Time: 23:29 sp4 Administered Medications: 01/31 23:37 Drug: Diazepam PO 5 mg PO once Route: PO; cp4 02/01 05:23 Follow up: Response: No adverse reaction ss Disposition Summary: 02/02/24 05:10 Discharge Ordered Notes: Location: Home sp4 Problem: new sp4 Symptoms: have improved sp4 Condition: Stable sp4 Diagnosis - Cellulitis of right lower limb sp4 - Chronic infected ulcer right lower extremity sp4 Followup: sp4 - With: Private Physician - When: 7 - 10 days - Reason: Recheck today's complaints Discharge Instructions: - Discharge Summary Sheet sp4 - Cellulitis, Adult sp4 Forms: - Patient Portal Instructions sp4 Signatures: Natalya Maldonado RN RN Neto Cornelius MD MD [facility] Petra Crouch [facility]
--- NOTE | 2024-02-02 05:11 | ER ---
Nurse's Notes [facility] Name: Karlos Leblanc Age: 58 yrs Sex: Male : 1965 Arrival Date: 02/01/2024 Time: 22:56 Bed 20 Private MD: Diagnosis: Cellulitis of right lower limb;Chronic infected ulcer right lower extremity Presentation: 01/31 23:19 Chief complaint: Patient states: Here for a wound recheck to R stump. Coronavirus ss screen: Client denies travel out of the [place] in the last 14 days. Ebola Screen: Patient denies exposure to infectious person. Patient denies travel to an Ebola-affected area in the 21 days before illness onset. Initial Sepsis Screen: Does the patient meet any 2 criteria? No. Patient's initial sepsis screen is negative. Does the patient have a suspected source of infection? No. Patient's initial sepsis screen is negative. Risk Assessment: Do you want to hurt yourself or someone else? Patient reports no desire to harm self or others. Onset of symptoms is unknown. 23:19 Method Of Arrival: Ambulatory ss 23:19 Acuity: KENIA 3 ss Triage Assessment: 23:22 General: Appears uncomfortable, Behavior is calm, Smells of alcohol. Neuro: Level of ss Consciousness is awake, alert, obeys commands. Respiratory: Airway is patent Respiratory effort is even, unlabored, Respiratory pattern is regular, symmetrical. Historical: - Allergies: 23:22 NKDA; ss - PMHx: 23:22 Chronic obstructive lung disease; Hypertension; Myocardial infarction; Seizures; ss - PSHx: 23:22 cardiac stents; Right toes amputation; Left Leg Amputation (below the knee); ss - Immunization history:: Adult Immunizations up to date. - Infectious Disease History:: Denies. - Social history:: Smoking status: Patient reports the use of cigarette tobacco products, smokes one-half pack cigarettes per day, Patient uses alcohol, claims drinking about a 6 pack/day. - Family history:: not pertinent. Screenin:37 [facility] ED Fall Risk Assessment (Adult) History of falling in the last 3 months, cp4 including since admission Yes- single mechanical fall (1 pt) Confusion or Disorientation No (0 pts) Intoxicated or Sedated No (0 pts) Impaired Gait Yes (1 pt) Mobility Assist Device Used Yes (1 pt) Altered Elimination No (0 pt) Score/Fall Risk Level 3 or more points = High Risk Oriented to surroundings, Maintained a safe environment, Assessed \T\ reinforced patient's understanding of fall precautions, Hourly rounding (assess needs \T\ fall precautionary measures) done, Used ambulatory aids as needed (educated on \T\ assisted with), Implemented a Fall Risk Plan of Care. Abuse screen: Denies threats or abuse. Nutritional screening: No deficits noted. Tuberculosis screening: No symptoms or risk factors identified. Assessment: 23:01 Reassessment: Called from ER lobby to exam room. No answer. Unable to locate patient. ss Joselyn, ED registrar states that patient stated he needed to step outside. 23:37 General: Appears in no apparent distress. comfortable, Behavior is calm, cooperative, cp4 appropriate for age. Pain: Denies pain. Neuro: Level of Consciousness is awake, alert, obeys commands, Oriented to person, place, time, situation. Cardiovascular: Patient's skin is warm and dry. Respiratory: Airway is patent Respiratory effort is even, unlabored. GI: No signs and/or symptoms were reported involving the gastrointestinal system. : No signs and/or symptoms were reported regarding the genitourinary system. EENT: No signs and/or symptoms were reported regarding the EENT system. Derm: No signs and/or symptoms reported regarding the dermatologic system. Derm: Reports wound to the right lower leg. Musculoskeletal: No signs and/or symptoms reported regarding the musculoskeletal system. 23:48 General: Smells of alcohol. cp4 02/01 00:30 Reassessment: Patient appears in no apparent distress at this time. Patient and/or cp4 family updated on plan of care and expected duration. Pain level reassessed. Patient is alert, oriented x 3, equal unlabored respirations, skin warm/dry/pink. 01:30 Reassessment: Patient appears in no apparent distress at this time. Patient and/or cp4 family updated on plan of care and expected duration. Pain level reassessed. Patient is alert, oriented x 3, equal unlabored respirations, skin warm/dry/pink. 02:30 Reassessment: Patient appears in no apparent distress at this time. Patient and/or cp4 family updated on plan of care and expected duration. Pain level reassessed. Patient is alert, oriented x 3, equal unlabored respirations, skin warm/dry/pink. 05:22 Reassessment: Patient appears in no apparent distress at this time. Neuro: Level of ss Consciousness is awake, alert, obeys commands. Respiratory: Respiratory effort is even, unlabored. Vital Signs: 01/31 23:19 BP 148 / 64; Pulse 89; Resp 20; Temp 98.6(O); Pulse Ox 100% on R/A; Weight 104.33 kg; Height 6 ft. 1 in. ; Pain 8/10; 02/01 00:30 BP 124 / 44; Pulse 81; Resp 18; Pulse Ox 95% ; cp4 01:30 BP 125 / 45; Pulse 74; Resp 18; Pulse Ox 95% ; cp4 01/31 23:19 Body Mass Index 30.34 (104.33 kg, 185.42 cm) 01/31 23:19 Pain Scale: Adult [place] Coma Score: 01:05 Eye Response: spontaneous(4). Motor Response: obeys commands(6). Verbal Response: sp4 oriented(5). Total: 15. ED Course: 01/31 23:00 Patient arrived in ED. mr 23:04 Petra Crouch is Primary Nurse. cp4 23:06 Neto Cornelius MD is Attending Physician. sp4 23:22 Triage completed. 23:22 Arm band placed on right wrist. 23:37 Bed in low position. Call light in reach. Side rails up X2. cp4 23:37 No provider procedures requiring assistance completed. Patient did not have IV access cp4 during this emergency room visit. Administered Medications: 23:37 Drug: Diazepam PO 5 mg PO once Route: PO; cp4 02/01 05:23 Follow up: Response: No adverse reaction ss Medication: 01/31 23:37 VIS not applicable for this client. cp4 Outcome: 02/01 05:10 Discharge ordered by . sp4 05:22 Discharged to home via wheelchair, 05:22 Condition: good 05:22 Discharge instructions given to patient, Instructed on discharge instructions, follow up and referral plans. Demonstrated understanding of instructions, follow-up care, 05:23 Patient left the ED. Signatures: Joselyn Torres, Reg Reg Natalya Maldonado, TAVO RN Neto Cornelius MD MD sp4 Petra Crouch cp4
[2024-02-02 05:28] VITALS: TEMP 98.6
[2024-02-02 05:29] VITALS: O2SAT 95
[2024-02-02 05:30] VITALS: BP 125/45
== END 2024-02-02 05:23 | disposition home or self-care (01) ==
LOC: ER 22:56
DX: L03.115 Cellulitis of right lower limb (principal); Z89.421 Acquired absence of other right toe(s); Z89.512 Acquired absence of left leg below knee
CPT/HCPCS: 99283

== ENCOUNTER 2024-03-10 17:15 | Inpatient (IN) | payer OTHER ==
[2024-03-10 18:17] LABS: Albumin 3.4 g/dL (3.4-5.0); Albumin/Globulin Ratio 0.6 (1.1-1.8); Bilirubin Total 0.4 mg/dL (0.2-1.0); Globulin 5.4 g/dL (2.3-3.5); Magnesium 2.2 mg/dL (1.6-2.4); Protein, Total 8.8 g/dL (6.4-8.2)
--- NOTE | 2024-03-10 18:58 | RAD REPORT ---
EXAM: CT brain without contrast HISTORY: PAIN COMPARISON: None TECHNIQUE: Multiple contiguous axial images were obtained and a CT of the brain without contrast. Sag ittal and coronal reformats were performed. FINDINGS:No evidence of hydrocephalus, intracranial hemorrhage, or extra-axial fluid collection. Moderate brain atrophy with moderate periventricular and deep white matter chronic microvascular isc hemic changes present. The calvarium is intact. The visualized paranasal sinuses and mastoid air cells are essentially clear . IMPRESSION: No evidence of acute intracranial abnormality. EXAM: CT of the cervical spine without contrast HISTORY: PAIN COMPARISON: None TECHNIQUE: Multiple contiguous axial images were obtained in a CT of the cervical spine without contr ast. Sagittal and coronal reformats were performed. FINDINGS: The vertebral bodies demonstrate normal height and alignment. No evidence of acute fracture or subluxation.. Multilevel moderate degenerative changes. No prevertebral soft tissue swelling is seen. The posterior facets are well aligned. Normal alignment of the skull base with the cervical spine is seen. The lung apices are unremarkable. Calcific ovoid 2.1 cm density, in the right buccal region, may be related to the superior aspect of t he right submandibular gland, stable in appearance, may represent a calculus. IMPRESSION: No evidence of acute osseous abnormality of the cervical spine. Chronic findings as above.
[2024-03-10 19:04] LABS: Absolute Basophils 0.1 K/uL (0-0.5); Absolute Eosinophils 0.1 K/uL (0-0.5); Absolute Lymphocytes (CBC) 1.8 K/uL (0.7-4.9); Absolute Monocytes 0.7 K/uL (0.1-1.3); Absolute Neutrophil 7.9 K/uL (1.8-8.0); Basophils % 1.2 % (0-1.3); Eosinophils % 0.9 % (0-4.4); Hematocrit 42.6 % (39.6-49.0); Hemoglobin 14.5 g/dL (13.6-17.9); Lymphocytes % 16.8 % (15.3-44.8); MCV 94.3 fL (80-100); MPV 7.3 fL (7.6-11.3); Monocytes % 6.8 % (3.3-12.3); Neutrophils % 74.3 % (41.7-73.7); Platelets 180 thou/uL (152-406); RBC Red Blood Cell Count 4.52 M/uL (4.33-5.43); Red Cell Distribution Width 16.8 % (12.1-15.2)
--- NOTE | 2024-03-10 19:05 | RAD REPORT ---
EXAM: CT CHEST, ABDOMEN AND PELVIS WITHOUT CONTRAST CLINICAL INDICATION: Male, 58 years old. [facility] MAIN PAIN Bed Name: 18 TECHNIQUE: CT chest, abdomen and pelvis was performed, without IV contrast, as per department protoco l. Axial, sagittal and coronal reconstructions were obtained. One or more of the following dose reduction techniques were used: Automated exposure control, adjustment of the mA and/or kV according to the patient size, and/or iterative reconstruction. Unless otherwise specified, incidental findings do not require dedicated imaging follow-up. COMPARISON: No prior exam. FINDINGS: The lack of intravenous contrast limits the sensitivity of this exam for evaluation of solid visceral organs, vascular structures, and retroperitoneum. Chest: LOWER NECK/CHEST WALL: Visualized thyroid gland and soft tissues are normal. LUNGS AND AIRWAYS: Airways are clear. No evidence of airspace or interstitial process. No nodules. PLEURA: No pleural effusion. No pneumothorax. Hemidiaphragms are normally positioned. MEDIASTINUM AND LYMPH NODES: No mediastinal mass or fluid collection. Normal size mediastinal, hilar, and axillary lymph nodes. THORACIC AORTA: Normal caliber and configuration. PULMONARY ARTERIES: Normal caliber. HEART: Unremarkable. Abdomen/Pelvis LIVER: Normal in size and contour. No focal lesion. GALLBLADDER/BILE DUCTS: Mild gallbladder layering sludge. PANCREAS: No mass, ductal dilation, or lianet-pancreatic fluid. SPLEEN: Normal size. No focal lesion. ADRENALS: Normal; no mass. KIDNEYS AND URETERS: Normal size and contour. No hydronephrosis. Punctate left renal pelvis radiodens ities, largest 4 mm, suggesting small nonobstructing calculi. GASTROINTESTINAL TRACT: Stomach is non-dilated. Small bowel has normal course and caliber. Fluid fill ing of distended small bowel, nonspecific. No colonic wall thickening or pericolonic inflammatory changes. PERITONEUM: No free fluid. LYMPH NODES: No lymphadenopathy. ABDOMINAL AORTA AND OTHER VESSELS: Normal caliber aorta and IVC. URINARY BLADDER: Normal contour. REPRODUCTIVE ORGANS: No pathologic process. MUSCULOSKELETAL: No acute or suspicious osseous abnormality. ADDITIONAL FINDINGS: None IMPRESSION: Nonspecific fluid filling of nondistended small bowel loops, may suggest diarrheal state. Nonobstructing small left renal calculi largest measuring 4 mm. No other acute or significant abnormalities in the chest, abdomen, or pelvis.
--- NOTE | 2024-03-10 19:19 | EDPHYS ---
Physician Documentation [facility] Name: Karlos Leblanc Age: 58 yrs Sex: Male : 1965 Arrival Date: 03/10/2024 Time: 17:15 Bed 18 Private MD: ED Physician Niles Alexander HPI: 03/10 19:16 This 58 yrs old Male presents to ER via EMS with complaints of Fall Injury. kb 19:16 Pt is a 58 year old male who presents for pain all over after falling out of wheelchair kb 2 days ago and landing on his porch. States he was unable to get up so he has been laying on his porch since the fall. Reports everything hurts, but more pain to head, left elbow and bilateral knees. . Historical: - Allergies: 17:27 NKDA; rs5 - PMHx: 17:27 Chronic obstructive lung disease; Myocardial infarction; Seizures; Hypertension; rs5 vascular disease (Right toes amputation ); - PSHx: 17:27 Left Leg Amputation (below the knee); cardiac stents; Right toes amputation; rs5 - Immunization history:: Adult Immunizations unknown. - Infectious Disease History:: Denies. - Social history:: Smoking status: Patient reports the use of cigarette tobacco products, denies chronic smoking, but will smoke occasionally. ROS: 17:58 Constitutional: As per HPI kb Exam: 17:57 ECG was reviewed by the Attending Physician. kb 19:13 Constitutional: This is a well developed, well nourished patient who is awake, alert, kb and in no acute distress. Head/Face: Normocephalic, atraumatic. ENT: Moist Mucous membranes Chest/axilla: Normal chest wall appearance and motion. Cardiovascular: Regular rate Respiratory: Respirations even and unlabored. No increased work of breathing. Talking in full sentences Back: No spinal tenderness. No costovertebral tenderness. Full range of motion. Neuro: Awake and alert, GCS 15, oriented to person, place, time, and situation. 19:13 Neck: External neck: tenderness, that is mild, of the left mid cervical area, right mid cervical area, left trapezius, lower cervical area and right trapezius, 19:13 Abdomen/GI: Inspection: abdomen appears normal, Bowel sounds: normal, Palpation: soft, in all quadrants, mild abdominal tenderness, in all quadrants, 19:13 Skin: scabs to left posterior scalp, left elbow, bilateral knees. Vital Signs: 17:28 BP 139 / 73; Pulse 77; Resp 17; Temp 97.9; Pulse Ox 99% on R/A; rs5 18:35 BP 135 / 77; Pulse 70; Resp 17; Pulse Ox 99% on R/A; rs5 19:37 BP 137 / 75; Pulse 78; Resp 16; Pulse Ox 97% ; dd2 21:15 BP 139 / 75; Pulse 75; Resp 17; Pulse Ox 98% ; dd2 MDM: 17:25 Medical Screening Exam initiated kb 19:15 Differential diagnosis: closed head injury, contusion, fracture, rhabdomyolysis, kb dehydration. Data reviewed: vital signs, nurses notes. Consideration of Admission/Observation Patient was admitted/placed on observation. Escalation of care including admission/observation considered. Management of patient was discussed with the following: Hospitalist: Dr Gil accepts pt for admission. Historians other than the Patient: EMS: [facility]. Counseling: I had a detailed discussion with the patient and/or guardian regarding the historical points, exam findings, and any diagnostic results supporting the discharge/admit diagnosis, lab results, radiology results, the need for further work-up and treatment in the hospital. 03/10 17:31 Order name: CBC with Diff; Complete Time: 19:08 kb 03/10 17:31 Order name: Magnesium; Complete Time: 18:23 kb 03/10 17:31 Order name: Troponin HS; Complete Time: 18:23 kb 03/10 17:31 Order name: CMP; Complete Time: 18:23 kb 03/10 17:31 Order name: CPK; Complete Time: 18:23 kb 03/10 19:30 Order name: Urinalysis w/ reflexes EDMS 03/10 19:30 Order name: CBC with Automated Diff EDMS 03/10 19:30 Order name: CBC with Automated Diff EDMS 03/10 19:30 Order name: Comprehensive Metabolic Panel EDMS 03/10 19:30 Order name: Comprehensive Metabolic Panel EDMS 03/10 19:30 Order name: Troponin High Sensitivity EDMS 03/10 19:30 Order name: Troponin High Sensitivity EDMS 03/10 19:30 Order name: Troponin High Sensitivity EDMS 03/10 19:30 Order name: Troponin High Sensitivity EDMS 03/10 17:31 Order name: CT Head C Spine; Complete Time: 19:02 kb 03/10 17:31 Order name: CT Chest Abdomen Pelvis W/O Contrast; Complete Time: 19:08 kb 03/10 17:31 Order name: EKG; Complete Time: 17:32 kb 03/10 17:31 Order name: Cardiac monitoring; Complete Time: 18:35 kb 03/10 17:31 Order name: EKG - Nurse/Tech; Complete Time: 18:35 kb 03/10 17:31 Order name: IV Saline Lock; Complete Time: 18:35 kb 03/10 17:31 Order name: Labs collected and sent; Complete Time: 18:35 kb 03/10 17:31 Order name: O2 Per Protocol; Complete Time: 18:35 kb 03/10 17:31 Order name: O2 Sat Monitoring; Complete Time: 18:35 kb EC:57 Rate is 92 beats/min. Rhythm is regular. QRS [place] is Normal. VT interval is normal at kb 128 msec. QRS interval is normal at 80 msec. QT interval is normal at 477 msec. Administered Medications: 21:12 Drug: NS 0.9% IV 1000 ml IV at 1000 ml once; to be given as a bolus over 60 minutes dd2 Route: IV; Rate: 1000 ml; Site: right antecubital; 21:27 Follow up: Response: No adverse reaction; IV Status: Infusion continued upon admission dd2 21:12 Drug: Ondansetron IVP 4 mg IVP once; over 2 minutes Route: IVP; Site: right antecubital;dd2 21:27 Follow up: Response: No adverse reaction dd2 21:12 Drug: morphine IVP or IV 2 mg IVP once over 4 mins Route: IVP; Infused Over: 4 mins; dd2 Site: right antecubital; 21:27 Follow up: Response: No adverse reaction dd2 Disposition Summary: 03/10/24 19:18 Hospitalization Ordered Notes: Hospitalization Status: Observation kb Provider: Noah Gil Location: Telemetry/MedSurg (observation) kb Condition: Stable kb Problem: new kb Symptoms: are unchanged kb Bed/Room Type: Standard Room Assignment: 403(03/10/24 20:54) vk Diagnosis - Fall from non-moving wheelchair kb - Weakness kb - Elevated troponin kb - Acute pain due to trauma kb Forms: - Medication Reconciliation Form kb - SBAR form kb - Leadership Thank You Letter kb Signatures: Dispatcher [employer] EDMS Seema Nguyen, ORDER CONTROL CLERK BLOOD BANK-C ORDER CONTROL CLERK BLOOD BANK-Junior Thompson, RN RN rs5 Annabelle Lewis DIANA RN RN dd2 Corrections: (The following items were deleted from the chart) 17:32 17:32 Head C Spine MPR Wo Con+CT.RAD.BRZ ordered. EDMS EDMS 17:32 17:32 Chest Abdomen Pelvis Wo Con+CT.RAD.BRZ ordered. EDMS EDMS 17:32 17:32 CBC+H.LAB.BRZ ordered. EDMS EDMS 17:32 17:32 MAGNESIUM+C.LAB.BRZ ordered. EDMS EDMS 17:32 17:32 Troponin High Sensitivity+C.LAB.BRZ ordered. EDMS EDMS 17:32 17:32 COMPREHENSIVE METABOLIC PANEL+C.LAB.BRZ ordered. EDMS EDMS 17:32 17:32 CREATINE PHOSPHOKINASE+C.LAB.BRZ ordered. EDMS EDMS 19:53 19:18 kb vk 20:54 19:53 [facility]
--- NOTE | 2024-03-10 19:19 | ER ---
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 Care prior to arrival: None. 17:24 Acuity: KENIA 3 rs5 17:24 Method Of Arrival: EMS: [facility] rs5 17:30 Coronavirus screen: At this time, the client does not indicate any symptoms associated rs5 with coronavirus-19. Ebola Screen: No symptoms or risks identified at this time. 17:30 Initial Sepsis Screen: Does the patient meet any 2 criteria? No. Patient's initial rs5 sepsis screen is negative. Does the patient have a suspected source of infection? No. Patient's initial sepsis screen is negative. Risk Assessment: Do you want to hurt yourself or someone else? Patient reports no desire to harm self or others. Onset of symptoms was March 10, 2024. Historical: - Allergies: 17:27 NKDA; rs5 - PMHx: 17:27 Chronic obstructive lung disease; Myocardial infarction; Seizures; Hypertension; rs5 vascular disease (Right toes amputation ); - PSHx: 17:27 Left Leg Amputation (below the knee); cardiac stents; Right toes amputation; rs5 - Immunization history:: Adult Immunizations unknown. - Infectious Disease History:: Denies. - Social history:: Smoking status: Patient reports the use of cigarette tobacco products, denies chronic smoking, but will smoke occasionally. Screenin:25 [facility] ED Fall Risk Assessment (Adult) History of falling in the last 3 months, rs5 including since admission No falls in past 3 months (0 pts) Confusion or Disorientation No (0 pts) Intoxicated or Sedated No (0 pts) Impaired Gait Yes (1 pt) Mobility Assist Device Used Yes (1 pt) Altered Elimination No (0 pt) Score/Fall Risk Level 0 - 2 = Low Risk Oriented to surroundings, Maintained a safe environment. Abuse screen: Denies threats or abuse. Nutritional screening: No deficits noted. Tuberculosis screening: No symptoms or risk factors identified. Assessment: 17:25 General: Appears in no apparent distress. uncomfortable, Behavior is calm, cooperative, rs5 Smells of urine. 17:25 Pain: Complains of pain in all over Pain currently is 10 out of 10 on a pain scale. rs5 Quality of pain is described as aching, Is continuous. Neuro: Level of Consciousness is awake, alert, obeys commands, Oriented to person, place, time, situation. Cardiovascular: Patient's skin is warm and dry. Respiratory: Airway is patent Respiratory effort is even, unlabored, Respiratory pattern is regular, symmetrical. GI: Abdomen is round non-distended, Abd is soft and non tender X 4 quads. : No signs and/or symptoms were reported regarding the genitourinary system. EENT: No signs and/or symptoms were reported regarding the EENT system. Derm: abrasion noted to right inner forearm, right cheek, and left knee. no active bleeding noted. Injury Description: Amputation sustained to below the knee amputation left leg. amputation to all toes on right foot. 18:35 Reassessment: Patient and/or family updated on plan of care and expected duration. Pain rs5 level reassessed. Patient is alert, oriented x 3, equal unlabored respirations, skin warm/dry/pink. Vital Signs: 17:28 BP 139 / 73; Pulse 77; Resp 17; Temp 97.9; Pulse Ox 99% on R/A; rs5 18:35 BP 135 / 77; Pulse 70; Resp 17; Pulse Ox 99% on R/A; rs5 19:37 BP 137 / 75; Pulse 78; Resp 16; Pulse Ox 97% ; dd2 21:15 BP 139 / 75; Pulse 75; Resp 17; Pulse Ox 98% ; dd2 ED Course: 17:24 Patient arrived in ED. rs5 17:24 Seema [facility]C [facility] kb 17:24 Niles Alexander MD is Attending Physician. kb 17:25 Patient has correct armband on for positive identification. Bed in low position. Call rs5 light in reach. Side rails up X2. 17:27 Triage completed. rs5 17:28 Morales, Junior, RN is Primary Nurse. rs5 17:37 No provider procedures requiring assistance completed. rs5 18:06 CT Head C Spine In Process Unspecified. EDMS 18:07 CT Chest Abdomen Pelvis W/O Contrast In Process Unspecified. EDMS 19:18 Noah Gil MD is Hospitalizing Provider. kb 20:25 IV is patent, with fluids infusing freely, with good blood return. dd2 21:39 Patient admitted, IV remains in place. dd2 21:40 Provided Education on: MEDICATIONS AND ADMISSION. dd2 Administered Medications: 21:12 Drug: NS 0.9% IV 1000 ml IV at 1000 ml once; to be given as a bolus over 60 minutes dd2 Route: IV; Rate: 1000 ml; Site: right antecubital; 21:27 Follow up: Response: No adverse reaction; IV Status: Infusion continued upon admission dd2 21:12 Drug: Ondansetron IVP 4 mg IVP once; over 2 minutes Route: IVP; Site: right antecubital;dd2 21:27 Follow up: Response: No adverse reaction dd2 21:12 Drug: morphine IVP or IV 2 mg IVP once over 4 mins Route: IVP; Infused Over: 4 mins; dd2 Site: right antecubital; 21:27 Follow up: Response: No adverse reaction dd2 Medication: 18:36 VIS not applicable for this client. rs5 Outcome: 19:18 Decision to Hospitalize by Provider. kb 21:39 Admitted to Med/surg accompanied by tech, via stretcher, room 411, with chart, dd2 21:39 Condition: stable 21:39 Instructed on the need for admit, 21:44 Patient left the ED. dd2 Signatures: Dispatcher [employer] EDMS Seema Nguyen, VP DELIVERY-C VP DELIVERY-Junior Thompson, RN RN rs5 LUCY RICCI RN RN dd2
[2024-03-10] MEDS ORDERED: ONDANSETRON 4 MG/2 ML VIAL IV PRN (19:25)
[2024-03-10] MEDS ORDERED: ACETAMINOPHEN 325 MG TABLET PO PRN (19:25)
--- NOTE | 2024-03-10 19:30 | P.HP ---
Certification for Inpatient Patient admitted to: Observation With expected LOS: <2 Midnights Practitioner: I am a practitioner with admitting privileges, knowledge of patient current condition, hospital course, and medical plan of care. Services: Services provided to patient in accordance with Admission requirements found in Title 42 Section 412.3 of the Code of Federal Regulations Patient History Date of Service: 03/12/24 Reason for admission: Fall History of Present Illness: 58 yrs old Male with past medical history of COPD, CAD status post stents, hypertension, hyperlipidemia, seizure disorder, peripheral artery disease status post left BKA amputation,, right toe amputation, brought to ER with fall. Patient had a fall apparently 2 days ago out of wheelchair and landing in his porch. He was not able to get up and has been laying on the porch since the fall. Complains of generalized body pain. Pain in the area and as well as left elbow and bilateral knees. No fever or chills. Denies any chest pain or shortness of breath. No nausea vomiting or diarrhea. Patient was assessed in the ER and is admitted for further management of rhabdomyolysis. He was also found to have NSTEMI Allergies No Known Allergies Allergy (Verified 11/17/23 03:52) Home medications list reviewed: Yes Home Medications: Medihoney [Medihoney Woundcare Gel*] 1 appl TOP DAILY tube 12/10/23 Doxycycline Hyclate 100 mg PO BID 21 Days #42 tab 01/19/24 levoFLOXacin [Levaquin*] 750 mg PO DAILY 21 Days #21 tab 01/19/24 metroNIDAZOLE [Flagyl*] 500 mg PO TID 21 Days #63 tab 01/19/24 Aspirin [Aspirin EC 81 MG] 81 mg PO DAILY #30 tab 01/21/24 Atorvastatin Calcium 40 mg PO BEDTIME #30 tab 01/21/24 Buspirone HCl 2 tab PO BID #60 tab 01/21/24 Clopidogrel Bisulfate [Plavix*] 75 mg PO DAILY #30 tab 01/21/24 Escitalopram Oxalate 20 mg PO DAILY #30 tab 01/21/24 Gabapentin [Neurontin*] 200 mg PO TID #120 cap 01/21/24 Multivit-Min/Iron/Folic Acid/K [Multi-Day Plus Minerals Tablet] 1 tab PO DAILY #30 tab 01/21/24 PHENYTOIN ER Cap [Dilantin ER Cap*] 100 mg PO DAILY #30 cap 01/21/24 Sertraline [Zoloft*] 100 mg PO DAILY #30 tab 01/21/24 levETIRAcetam [Keppra*] 1,500 mg PO BID #180 tab 01/21/24 methocarbamoL [Methocarbamol] 500 mg PO TID #90 tab 01/21/24 Hydrocodone 7.5/APAP 325 [[place] 7.5/325 mg*] 1 tab PO Q6HP PRN #30 tab 01/30/24 - Past Medical/Surgical History Diabetic: No Past Medical History: Reviewed- Non-Contributory -: HTN -: CHF, diastolic dysfunction -: COPD -: CAD -: PVD -: Left & right partial foot amputation -: History of osteomyelitis -: History of drug use -: Alcohol abuse -: Tobacco abuse -: GERD Past Surgical History: Reviewed- Non-Contributory -: Rt great toe & 2nd toe amputated-Dec 2015 -: Left partial foot amputation-January 2019 -: right partial foot amputation Psychosocial/ Personal History: Currently stays at [facility] - Family History Family History: Reviewed- Non-Contributory - Family History Father -: Cancer Mother -: Cancer - Social History Smoking Status: Former smoker Alcohol use: No CD- Drugs: No Caffeine use: No Review of Systems 10-point ROS is otherwise unremarkable Physical Examination - Vital Signs Temperature: 97.4 F Blood Pressure: 170/72 Pulse: 98 Respirations: 18 Pulse Ox (%): 95 - Physical Exam General: Alert, Oriented x3, Mild distress HEENT: Atraumatic, Normocephalic Neck: Supple, No Thyromegaly Respiratory: Clear to auscultation bilaterally, Normal air movement Cardiovascular: Regular rate/rhythm, Normal S1 S2 Capillary refill: <2 Seconds Gastrointestinal: Soft and benign, Non-distended, W/out hepatosplenomegaly Musculoskeletal: No clubbing, No warmth, Erythema, Tenderness Integumentary: Tenderness/swelling, Erythema, Other (Abrasions) Neurological: Normal speech, Normal strength at 5/5 x4 extr, Normal affect Lymphatics: No axilla or inguinal lymphadenopathy - Studies Laboratory Data (last 24 hrs) 03/10/24 03/10/24 18:54 17:45 WBC 10.60 Hgb 14.5 Hct 42.6 Plt Count 180 Sodium 130 L Potassium 4.0 BUN 7 Creatinine 0.84 Glucose 77 Magnesium 2.2 Total Bilirubin 0.4 AST 46 H ALT 49 Alkaline Phosphatase 101 Assessment and Plan - Plan Rhabdomyolysis Monitor closely on telemetry IV hydration Monitor CK levels Monitor renal parameters Pain control Hyponatremia IV hydration NSTEMI possibly type II due to rhabdomyolysis Will trend cardiac enzymes Will monitor telemetry Started on aspirin EKG did not show any acute changes suggestive of ischemia Patient denies any chest pain Cardiology consult if troponins trending high Hypertension Hyperlipidemia CAD status post AL/stents Continue home medications cetirizine as needed GI/DVT prophylaxis Advanced directive full code Discharge Plan: Home Plan to discharge in: 48 Hours - Advance Directives Does patient have a Living Will: No Does patient have a Durable POA for Healthcare: No - Code Status/Comfort Care Code Status: Full Code Time Spent Managing Pts Care (In Minutes): 48
[2024-03-10] MEDS ORDERED: ONDANSETRON 4 MG/2 ML VIAL ONE (20:33)
[2024-03-10] MEDS ORDERED: NA CHLORIDE 0.9% 1,000 ML ONE (20:34)
[2024-03-10] MEDS ORDERED: MORPHINE 2 MG/ML SYR ONE (20:34)
[2024-03-10 22:05] VITALS: BMI 30.3
[2024-03-10] MEDS: ATORVASTATIN 40 MG TAB PO SCH (22:14)
[2024-03-10] MEDS: NA CHLORIDE 0.9% 1,000 ML IV SCH (22:14)
[2024-03-11 02:07] VITALS: O2SAT 98
[2024-03-11 06:57] LABS: Absolute Basophils 0.1 K/uL (0-0.5); Absolute Eosinophils 0.1 K/uL (0-0.5); Absolute Lymphocytes (CBC) 1.8 K/uL (0.7-4.9); Absolute Monocytes 0.9 K/uL (0.1-1.3); Absolute Neutrophil 6.3 K/uL (1.8-8.0); Basophils % 0.7 % (0-1.3); Eosinophils % 1.5 % (0-4.4); Hematocrit 37.9 % (39.6-49.0); Hemoglobin 12.8 g/dL (13.6-17.9); Lymphocytes % 19.4 % (15.3-44.8); MCH 31.8 pg (27.0-35.0); MCHC 33.9 g/dL (32.0-36.0); MCV 93.9 fL (80-100); MPV 7.4 fL (7.6-11.3); Neutrophils % 68.4 % (41.7-73.7); Nucleated Red Blood Cells % 0.1 % (0-0); Platelets 162 thou/uL (152-406); RBC Red Blood Cell Count 4.04 M/uL (4.33-5.43)
[2024-03-11 07:17] LABS: Albumin 2.6 g/dL (3.4-5.0); Albumin/Globulin Ratio 0.7 (1.1-1.8); Bilirubin Total 0.4 mg/dL (0.2-1.0); Globulin 3.9 g/dL (2.3-3.5); Protein, Total 6.5 g/dL (6.4-8.2)
[2024-03-11] MEDS: ENOXAPARIN 40 MG/0.4 ML SQ SCH (10:10)
[2024-03-11] MEDS: ASPIRIN EC 81 MG TAB PO SCH (10:10)
[2024-03-11] MEDS: HYDROCODONE/APAP 5/325 MG TAB PO PRN (10:14)
--- NOTE | 2024-03-11 11:46 | P.CNS ---
Date of Consult: 03/11/24 Chief Complaint: Fall History of Present Illness: Patient with PMH of CAD, PAD, HTN, HLD presented to hospital after he had a fall from his wheelchair and left on the ground for 2 days, denies any chest pain, no SOB, no palpitations,no syncope. Allergies No Known Allergies Allergy (Verified 11/17/23 03:52) Home medications list reviewed: Yes Home Medications: Medihoney [Medihoney Woundcare Gel*] 1 appl TOP DAILY tube 12/10/23 Doxycycline Hyclate 100 mg PO BID 21 Days #42 tab 01/19/24 levoFLOXacin [Levaquin*] 750 mg PO DAILY 21 Days #21 tab 01/19/24 metroNIDAZOLE [Flagyl*] 500 mg PO TID 21 Days #63 tab 01/19/24 Aspirin [Aspirin EC 81 MG] 81 mg PO DAILY #30 tab 01/21/24 Atorvastatin Calcium 40 mg PO BEDTIME #30 tab 01/21/24 Buspirone HCl 2 tab PO BID #60 tab 01/21/24 Clopidogrel Bisulfate [Plavix*] 75 mg PO DAILY #30 tab 01/21/24 Escitalopram Oxalate 20 mg PO DAILY #30 tab 01/21/24 Gabapentin [Neurontin*] 200 mg PO TID #120 cap 01/21/24 Multivit-Min/Iron/Folic Acid/K [Multi-Day Plus Minerals Tablet] 1 tab PO DAILY #30 tab 01/21/24 PHENYTOIN ER Cap [Dilantin ER Cap*] 100 mg PO DAILY #30 cap 01/21/24 Sertraline [Zoloft*] 100 mg PO DAILY #30 tab 01/21/24 levETIRAcetam [Keppra*] 1,500 mg PO BID #180 tab 01/21/24 methocarbamoL [Methocarbamol] 500 mg PO TID #90 tab 01/21/24 Hydrocodone 7.5/APAP 325 [[place] 7.5/325 mg*] 1 tab PO Q6HP PRN #30 tab 01/30/24 - Past Medical/Surgical History Diabetic: No -: HTN -: CHF, diastolic dysfunction -: COPD -: CAD -: PVD -: Left & right partial foot amputation -: History of osteomyelitis -: History of drug use -: Alcohol abuse -: Tobacco abuse -: GERD -: Rt great toe & 2nd toe amputated-Dec 2015 -: Left partial foot amputation-January 2019 -: right partial foot amputation Psychosocial/ Personal History: Currently stays at [facility] under SNF - Family History Father Medical History: Cancer Mother Medical History: Cancer - Social History Smoking Status: Current some day smoker Alcohol use: No CD- Drugs: No Caffeine use: No Place of Residence: Homeless Review of Systems 10-point ROS is otherwise unremarkable Physical Examination Temp Pulse Resp BP Pulse Ox 77 F L 80 18 128/73 95 03/11/24 08:00 03/11/24 08:00 03/11/24 10:14 03/11/24 08:00 03/11/24 10:14 General: Alert, In no apparent distress HEENT: Atraumatic, PERRLA, Mucous membr. moist/pink, EOMI, Sclerae nonicteric Neck: Supple, 2+ carotid pulse no bruit, No LAD, Without JVD or thyroid abnormality Respiratory: Clear to auscultation bilaterally, Normal air movement Cardiovascular: Regular rate/rhythm, Normal S1 S2 Gastrointestinal: Normal bowel sounds, No tenderness Musculoskeletal: No tenderness Integumentary: No rashes Neurological: Normal gait, Normal speech, Normal tone, Normal affect Lymphatics: No axilla or inguinal lymphadenopathy Laboratory Data (last 24 hrs) 03/10/24 03/10/24 18:54 17:45 WBC 10.60 Hgb 14.5 Hct 42.6 Plt Count 180 Sodium 130 L Potassium 4.0 BUN 7 Creatinine 0.84 Glucose 77 Magnesium 2.2 Total Bilirubin 0.4 AST 46 H ALT 49 Alkaline Phosphatase 101 - Problems (1) Type 2 LA (myocardial infarction) Current Visit: Yes Status: Acute Plan: Patient got mild troponin leak, with no chest pain, no EKG changes it is type 2 LA from recent fall, No further cardiac work up needed continue ASA, Plavix and Lipitor Cardiology will sign off.
--- NOTE | 2024-03-11 15:13 | P.PN ---
Subjective Date of Service: 03/11/24 Chief Complaint: Fall Patient report pain all over because of his fall. He denies any chest pain or shortness of breath. Physical Examination - Vital Signs Temperature: 98.2 F Blood Pressure: 128/70 Pulse: 78 Respirations: 20 Pulse Ox (%): 98 - Studies Laboratory Data (last 24 hrs) 03/10/24 03/10/24 18:54 17:45 WBC 10.60 Hgb 14.5 Hct 42.6 Plt Count 180 Sodium 130 L Potassium 4.0 BUN 7 Creatinine 0.84 Glucose 77 Magnesium 2.2 Total Bilirubin 0.4 AST 46 H ALT 49 Alkaline Phosphatase 101 Assessment And Plan - Plan Physical examination General: Alert and oriented x3, NAD, HEENT: Conjunctiva not pale, anicteric sclera Neck: Supple, no elevated JVD Heart: Heart sounds 1 and 2 normal, regular rhythm, normal rate, no pedal edema Lungs: Clear to auscultation bilaterally, adequate breath sounds bilaterally, no rhonchi or crackles. Abdomen: Soft, nondistended, nontender, normal bowel sounds. Extremities: No tenderness, right transmetatarsal amputation, left BKA. Skin: Normal skin turgor, multiple areas of old bruises with scabs on bilateral knees and elbows, abrasion-left temporal region of face. Neuro: No focal motor deficit. Normal speech. Psychiatry: Normal mood, no agitation. Assessment and plan NSTEMI possibly type II Troponin trended flat Patient denies any chest pain Cardiology input appreciated. Continue home dose aspirin, Plavix and Lipitor Fall Seizure Patient with a history of fall. He thinks he fell from his wheelchair He has history of seizures and breakthrough seizures not ruled out. Obtain EEG. Case discussed with neurology Dr. Escobar who recommended increasing patient's phenytoin dose to 300 mg at bedtime and decrease Keppra dose from 1500 mg twice daily to 1000 mg twice a day. Check Dilantin and Keppra level. Hyponatremia Resolved with IV NS. Discontinue IV fluid. Hypertension Hyperlipidemia CAD status post IA/stents Continue home medications. DVT prophylaxis: Lovenox Advanced directive: full code
[2024-03-11] MEDS ORDERED: HYDROCODONE/APAP 7.5/325 MG TAB PO PRN (15:14)
[2024-03-11] MEDS: SERTRALINE HCL 100 MG TAB PO SCH (16:12)
[2024-03-11] MEDS: ESCITALOPRAM 20 MG TAB PO SCH (16:12)
[2024-03-11] MEDS: GABAPENTIN 100 MG CAP PO SCH (20:09)
[2024-03-11] MEDS: PHENYTOIN ER 100 MG CAP PO SCH (20:10)
[2024-03-11] MEDS: ATORVASTATIN 40 MG TAB PO SCH (20:10)
[2024-03-11] MEDS: levETIRAcetam 500 MG TAB PO SCH (20:10)
[2024-03-11] MEDS ORDERED: levETIRAcetam 500 MG TAB PO SCH (21:00)
[2024-03-12] MEDS: CLOPIDOGREL 75 MG TABLET PO SCH (07:20)
--- NOTE | 2024-03-12 07:29 | ECHO ---
HEIGHT: 6 ft 1 in WEIGHT: 230 lb 0 oz DATE OF STUDY: 03/11/[address]: Jose Miguel Gil DO 2-DIMENSIONAL: YES M.MODE: YES DOPPLER: YES COLOR FLOW: YES TDS: YES PORTABLE: YES DEFINITY: BUBBLE STUDY: DIAGNOSIS: NON ST ELEVATION MYOCARDIAL INFARCTION CARDIAC HISTORY: CATHERIZATION: SURGERY: PROSTHETIC VALVE: PACEMAKER: MEASUREMENTS (cm) DIASTOLIC (NORMALS) SYSTOLIC (NORMALS) IVSd 1.1 (0.6-1.2) LA Diam 4.6 (1.9-4.0) LVEF 60% LVIDd 5.0 (3.5-5.7) LVIDs 3.1 (2.0-3.5) %FS 37% LVPWd 1.2 (0.6-1.2) Ao Diam 3.1 (2.0-3.7) 2 DIMENSIONAL ASSESSMENT: RIGHT ATRIUM: NORMAL LEFT ATRIUM: MILD DILATED RIGHT VENTRICLE: NORMAL LEFT VENTRICLE: NORMAL TRICUSPID VALVE: TRACE TRICUSPID REGURGITATION MITRAL VALVE: NORMAL PULMONIC VALVE: NORMAL AORTIC VALVE: NORMAL PERICARDIAL EFFUSION: NONE AORTIC ROOT: NORMAL LEFT VENTRICULAR WALL MOTION: NORMAL DOPPLER/COLOR FLOW: NORMAL COMMENTS: 1. NORMAL LEFT VENTRICULAR SYSTOLIC FUNCTION, EJECTION FRACTION 60%, NORMAL WALL MOTION 2. NORMAL DIASTOLIC FUNCTION 3. NORMAL FILLING PRESSURE TECHNOLOGIST: KANG GARCIA
[2024-03-12] MEDS ORDERED: PHENYTOIN ER 100 MG CAP PO SCH (09:00)
[2024-03-12] MEDS ORDERED: HOME MED 1 EA UNK (Escitalopram Oxalate [Escitalopram Oxalate] 10 MG Tablet) PO SCH (09:00)
[2024-03-12 17:47] VITALS: BP 164/79; TEMP 98.2
--- NOTE | 2024-03-12 18:10 | P.DS ---
Admission Date: 03/11/24 Discharge Date: 03/12/24 Disposition: DC HOME/HOME HEALTH CARE Discharge Condition: FAIR Reason for Admission: Fall Brief History of Present Illness: 58 yrs old Male with past medical history of COPD, CAD status post stents, hypertension, hyperlipidemia, seizure disorder, peripheral artery disease status post left BKA amputation, right toe amputation, brought to ER for a fall. Patient reports falling from his wheelchair 2 days prior, he stated he rammed his wheelchair and fell from it. He was not able to get up and laid on his porch for a couple of days. He was complaining of generalized body pain, more pain in his left elbow and bilateral knees. No fever or chills. He denied any any chest pain or shortness of breath. Patient was assessed in the ER and found to have elevated troponin. Patient was hospitalized for further management. Hospital Course: Patient admitted to the medical floor and the following medical problems addressed: NSTEMI possibly type II Troponin trended flat Patient denies any chest pain Cardiology input appreciated. No further intervention per cardiology Continued home dose aspirin, Plavix and Lipitor Fall Seizure Patient with a history of fall. He reported falling from his wheelchair He has history of seizures and breakthrough seizures not ruled out. Case discussed with neurology Dr. Escobar who recommended increasing patient's phenytoin dose to 300 mg at bedtime and decrease Keppra dose from 1500 mg twice daily to 1000 mg twice a day. Patient had low Dilantin level. Keppra level is pending. No seizures during the hospital stay. Patient discharged to follow-up with neurology as outpatient. Hyponatremia Resolved with IV NS. Hypertension Hyperlipidemia CAD status post CA/stents Continued home medications. Right lower extremity amputation stump ulcers Wound reassessed and appeared to be clean. Surgery Dr. Lay recommend wound dressing with Vashe, Santyl and follow-up with him in the office. Patient completed 3 weeks of oral Levaquin and Flagyl. He is prescribed 10 more days of antibiotics. Vital Signs/Physical Exam: Temp Pulse Resp BP Pulse Ox 98.2 F 82 18 164/79 H 97 03/12/24 16:00 03/12/24 16:00 03/12/24 16:00 03/12/24 16:00 03/12/24 16:00 General: Alert, In no apparent distress, Oriented x3 HEENT: Mucous membr. moist/pink Neck: JVD not distended Respiratory: Clear to auscultation bilaterally, Normal air movement Cardiovascular: No edema, Regular rate/rhythm, Normal S1 S2 Gastrointestinal: Normal bowel sounds, Soft and benign, Non-distended Musculoskeletal: Other (Right BKA) Integumentary: Other (Multiple clean ulcers on right BKA amputations stump) Laboratory Data at Discharge: WBC 9.30 thou/uL (4.3-10.9) 03/11/24 06:19 Hgb 12.8 g/dL (13.6-17.9) L D 03/11/24 06:19 Hct 37.9 % (39.6-49.0) L 03/11/24 06:19 Plt Count 162 thou/uL (152-406) 03/11/24 06:19 Sodium 138 mEq/L (136-145) D 03/11/24 06:19 Potassium 4.0 mEq/L (3.5-5.1) 03/11/24 06:19 BUN 8 mg/dL (7-18) 03/11/24 06:19 Creatinine 0.73 mg/dL (0.70-1.30) 03/11/24 06:19 Glucose 95 mg/dL (74-106) 03/11/24 06:19 Magnesium 2.2 mg/dL (1.6-2.4) 03/10/24 17:45 Total Bilirubin 0.4 mg/dL (0.2-1.0) 03/11/24 06:19 AST 34 U/L (15-37) 03/11/24 06:19 ALT 35 U/L (16-61) 03/11/24 06:19 Alkaline Phosphatase 74 U/L (45-117) D 03/11/24 06:19 Home Medications: Medihoney [Medihoney Woundcare Gel*] 1 appl TOP DAILY tube 12/10/23 Doxycycline Hyclate 100 mg PO BID 21 Days #42 tab 01/19/24 Aspirin [Aspirin EC 81 MG] 81 mg PO DAILY #30 tab 01/21/24 Atorvastatin Calcium 40 mg PO BEDTIME #30 tab 01/21/24 Buspirone HCl 2 tab PO BID #60 tab 01/21/24 Clopidogrel Bisulfate [Plavix*] 75 mg PO DAILY #30 tab 01/21/24 Escitalopram Oxalate 20 mg PO DAILY #30 tab 01/21/24 Gabapentin [Neurontin*] 200 mg PO TID #120 cap 01/21/24 Multivit-Min/Iron/Folic Acid/K [Multi-Day Plus Minerals Tablet] 1 tab PO DAILY #30 tab 01/21/24 Sertraline [Zoloft*] 100 mg PO DAILY #30 tab 01/21/24 methocarbamoL [Methocarbamol] 500 mg PO TID #90 tab 01/21/24 Collagenase [Santyl Ointment*] 1 appl TOP DAILY #1 tube 03/12/24 Hydrocodone 7.5/APAP 325 [[place] 7.5/325 mg*] 1 tab PO Q6HP PRN #20 tab 03/12/24 PHENYTOIN ER Cap [Dilantin ER Cap*] 300 mg PO BEDTIME #90 cap 03/12/24 levETIRAcetam [Keppra*] 1,000 mg PO BID #120 tab 03/12/24 levoFLOXacin [Levaquin*] 750 mg PO DAILY 21 Days #10 tab 03/12/24 metroNIDAZOLE [Flagyl*] 500 mg PO TID 21 Days #30 tab 03/12/24 New Medications: Hydrocodone 7.5/APAP 325 [[place] 7.5/325 mg*] 1 tab PO Q6HP PRN #20 tab PRN Reason: Pain Scale 8-10 (Severe) PHENYTOIN ER Cap [Dilantin ER Cap*] 300 mg PO BEDTIME #90 cap metroNIDAZOLE [Flagyl*] 500 mg PO TID 21 Days #30 tab levETIRAcetam [Keppra*] 1,000 mg PO BID #120 tab levoFLOXacin [Levaquin*] 750 mg PO DAILY 21 Days #10 tab Collagenase [Santyl Ointment*] 1 appl TOP DAILY #1 tube Physician Discharge Instructions: Established Home Health: [facility] [place] P:[phone] F:[phone] Wound care: Wet to dry dressing: Clean wound with Vashe solution, apply Santyl ointment, pack wound with gauze, apply Alvaro wrap. Please avoid drinking alcohol as much as possible. Diet: ADA Activity: Fall precautions Followup: Faizan Lay MD [ACTIVE - CAN ADMIT] - 1-2 Days NONE,NONE [Primary Care Provider] - 1-2 Weeks Time spent managing pt's care (in minutes): 37
[2024-03-13] MEDS ORDERED: COLLAGENASE 30 GM OINTMENT TOP SCH (09:00)
--- NOTE | 2024-03-13 12:02 | EKG ---
Test Date: 2024-03-10 Test Time: 17:43:55 Automobile Service Advisor: TARIK MEASUREMENT RESULTS: Intervals: Rate: 92 RI: 128 QRSD: 80 QT: 386 QTc: 477 [place]: P: 24 RI: 128 QRS: 48 T: 144 INTERPRETIVE STATEMENTS: Normal sinus rhythm ST & T wave abnormality, consider anterolateral ischemia Prolonged QT Abnormal ECG Compared to ECG 01/27/2024 17:57:02 ST (T wave) deviation now present Possible ischemia now present Prolonged QT interval now present Electronically Signed On 03-13-24 11:54:32 CDT by Jeff Rehman
== END 2024-03-12 20:11 | disposition home health service (06) | DRG 557 ==
LOC: ER 17:15 → ERHOLD 19:25 → 4TH 21:35 → OBSVTOIN 03-11 15:59
PROVIDERS: ADMIT Family Medicine; ATTEND Internal Medicine
DX: M62.82 Rhabdomyolysis (principal); I21.A1 Myocardial infarction type 2; E87.1 Hypo-osmolality and hyponatremia; I50.32 Chronic diastolic (congestive) heart failure; L97.819 Non-pressure chronic ulcer of other part of right lower leg with unspecified severity; I11.0 Hypertensive heart disease with heart failure; E78.5 Hyperlipidemia, unspecified; I73.9 Peripheral vascular disease, unspecified; K21.9 Gastro-esophageal reflux disease without esophagitis; I25.2 Old myocardial infarction; J44.9 Chronic obstructive pulmonary disease, unspecified; I25.10 Atherosclerotic heart disease of native coronary artery without angina pectoris; F17.210 Nicotine dependence, cigarettes, uncomplicated; R79.89 Other specified abnormal findings of blood chemistry; Z95.5 Presence of coronary angioplasty implant and graft; Z79.82 Long term (current) use of aspirin; Z79.02 Long term (current) use of antithrombotics/antiplatelets; Z89.421 Acquired absence of other right toe(s); Z89.512 Acquired absence of left leg below knee; Z79.899 Other long term (current) drug therapy
CPT/HCPCS: 36415; 70450; 71250; 72125; 74176; 80053; 80177; 80185; 82550; 82947; 83735; 84484; 85025; 93005; 93306; 95819; 96374; 96375; 99285; G0378; J1650; J2270; J2405; J7030

== ENCOUNTER 2024-03-31 11:16 | Observation (INO) | payer OTHER ==
[2024-03-31] MEDS ORDERED: LEVETIRACETAM 500 MG/5 ML VIAL IV ONE (12:31)
[2024-03-31] MEDS ORDERED: MORPHINE 4 MG/ML SYR ONE (12:31)
[2024-03-31] MEDS ORDERED: ONDANSETRON 4 MG/2 ML VIAL ONE (12:31)
[2024-03-31] MEDS ORDERED: NA CHLORIDE 0.9% 1,000 ML ONE ×2 (12:31→14:52)
[2024-03-31] MEDS ORDERED: NA CHLORIDE 0.9% 100 ML ONE (12:32)
--- NOTE | 2024-03-31 13:17 | RAD REPORT ---
EXAMINATION: ONE VIEW CHEST XR CLINICAL INDICATION: Male, 58 years old.,COUGH TECHNIQUE: Frontal chest projection is submitted. Examination is limited by patient positioning and t echnique. COMPARISON: 01/27/2024 FINDINGS: The lungs are well inflated and clear. No pneumothorax or sizable effusion. Evaluation somewhat limi roseann by noninclusion of the most peripheral left costophrenic angle due to technical difficulties. The heart is normal in size. Mediastinal contours are unremarkable. IMPRESSION: No acute intrathoracic abnormalities.
--- NOTE | 2024-03-31 13:37 | RAD REPORT ---
EXAM: CT brain without contrast HISTORY: Pain;Trauma COMPARISON: 03/10/2024 TECHNIQUE: Multiple contiguous axial images were obtained and a CT of the brain without contrast. Sag ittal and coronal reformats were performed. FINDINGS: No evidence of hydrocephalus, intracranial hemorrhage, or extra-axial fluid collection. Stable moderate brain atrophy with moderate periventricular and deep white matter chronic microvascu lar ischemic changes present. The calvarium is intact. The visualized paranasal sinuses and mastoid air cells are essentially clear . IMPRESSION: No evidence of acute intracranial abnormality. EXAM: CT of the cervical spine without contrast HISTORY: Pain;Trauma COMPARISON: None TECHNIQUE: Multiple contiguous axial images were obtained in a CT of the cervical spine without contr ast. Sagittal and coronal reformats were performed. FINDINGS: The vertebral bodies demonstrate normal height and alignment. No evidence of acute fracture or subluxation.. Stable multilevel degenerative changes are present. No prevertebral soft tissue swelling is seen. The posterior facets are well aligned. Normal alignment of the skull base with the cervical spine is seen. 1.9 cm calcified ovoid structure near the right buccal cavity, suggesting a sialolith, stable. The lung apices are unremarkable. IMPRESSION: No evidence of acute osseous abnormality of the cervical spine. Stable findings as above.
--- NOTE | 2024-03-31 13:43 | RAD REPORT ---
EXAM: CT CHEST, ABDOMEN AND PELVIS WITHOUT CONTRAST CLINICAL INDICATION: Male, 58 years old. HS MAIN Pain;Trauma Bed Name: 8 TECHNIQUE: CT chest, abdomen and pelvis was performed, without IV contrast, as per department protoco l. Axial, sagittal and coronal reconstructions were obtained. One or more of the following dose reduction techniques were used: Automated exposure control, adjustment of the mA and/or kV according to the patient size, and/or iterative reconstruction. Unless otherwise specified, incidental findings do not require dedicated imaging follow-up. COMPARISON: 03/10/2024 FINDINGS: The lack of intravenous contrast limits the sensitivity of this exam for evaluation of solid visceral organs, vascular structures, and retroperitoneum. Chest: LOWER NECK/CHEST WALL: Visualized thyroid gland and soft tissues are normal. LUNGS AND AIRWAYS: Airways are clear. No evidence of airspace or interstitial process. No nodules. PLEURA: No pleural effusion. No pneumothorax. Hemidiaphragms are normally positioned. MEDIASTINUM AND LYMPH NODES: No mediastinal mass or fluid collection. Normal size mediastinal, hilar, and axillary lymph nodes. THORACIC AORTA: Normal caliber and configuration. PULMONARY ARTERIES: Normal caliber. HEART: Unremarkable. Abdomen/Pelvis LIVER: Normal in size and contour. No focal lesion. GALLBLADDER/BILE DUCTS: Mildly hyperdense dependent small stones near the gallbladder neck. PANCREAS: No mass, ductal dilation, or lianet-pancreatic fluid. SPLEEN: Normal size. No focal lesion. ADRENALS: Normal; no mass. KIDNEYS AND URETERS: Normal size and contour. No hydronephrosis. Stable calcific densities in the lovely al tamar bilaterally, favored to be vascular. GASTROINTESTINAL TRACT: Fluid opacification of nondistended proximal colon, as well as rectosigmoid. Stomach is non-dilated. Small bowel has normal course and caliber. No colonic wall thickening or pericolonic inflammatory changes. PERITONEUM: No free fluid. LYMPH NODES: No lymphadenopathy. ABDOMINAL AORTA AND OTHER VESSELS: Normal caliber aorta and IVC. URINARY BLADDER: Normal contour. REPRODUCTIVE ORGANS: No pathologic process. MUSCULOSKELETAL: No acute or suspicious osseous abnormality. ADDITIONAL FINDINGS: None IMPRESSION: Fluid opacification of nondistended ascending through transverse as well as rectosigmoid large bowel, nonspecific, but may relate to diarrheal state. Cholelithiasis. No other acute or significant abnormalities in the chest, abdomen, or pelvis. Other stable incidental findings as above.
--- NOTE | 2024-03-31 13:49 | RAD REPORT ---
EXAMINATION: XR Foot Right 3 View CLINICAL INDICATION: Male, 58 years old. PAIN Bed Name: 8 TECHNIQUE: 3 view radiographs of the left foot were obtained. COMPARISON: No prior exam. FINDINGS: No evidence of fracture or dislocation. Sequelae of amputation at the level of the metatars al bases again seen. Diffuse osteopenia. Moderate calcaneal spur. No suspicious focal bone lesion. No soft tissue gas or significant swelling. Scattered up to moderate degenerative changes. IMPRESSION: Sequelae of amputation as above, with no osseous destructive changes. There is concern for acute oste omyelitis, additional evaluation by MRI with provide improved sensitivity.
[2024-03-31 13:56] LABS: Absolute Eosinophils 0.3 K/uL (0-0.5); Absolute Lymphocytes (CBC) 2.6 K/uL (0.7-4.9); Absolute Monocytes 0.6 K/uL (0.1-1.3); Absolute Neutrophil 5.1 K/uL (1.8-8.0); Basophils % 0.2 % (0-1.3); Eosinophils % 2.9 % (0-4.4); Hematocrit 40.4 % (39.6-49.0); Hemoglobin 13.3 g/dL (13.6-17.9); Lymphocytes % 30.2 % (15.3-44.8); MCHC 32.9 g/dL (32.0-36.0); MCV 97.3 fL (80-100); MPV 7.6 fL (7.6-11.3); Monocytes % 7.3 % (3.3-12.3); Neutrophils % 59.4 % (41.7-73.7); Platelets 257 thou/uL (152-406); RBC Red Blood Cell Count 4.15 M/uL (4.33-5.43); Red Cell Distribution Width 16.7 % (12.1-15.2)
[2024-03-31 13:59] LABS: PT Prothrombin Time 15.2 SECONDS (9.4-12.5); Protime INR 1.37
[2024-03-31 14:15] LABS: Albumin 3.4 g/dL (3.4-5.0); Albumin/Globulin Ratio 0.7 (1.1-1.8); Bilirubin Direct 0.2 mg/dL (0-0.2); Bilirubin Indirect, Calculated 0.2 mg/dL (0.2-0.8); Bilirubin Total 0.4 mg/dL (0.2-1.0); C-Reactive Protein 12.6 mg/L (<3.00); Globulin 4.6 g/dL (2.3-3.5); Magnesium 2.3 mg/dL (1.6-2.4); Troponin High Sensitivity 12.3 pg/mL (<58.9)
[2024-03-31] MEDS ORDERED: PIPERACIL/TAZO 3.375 GM VIAL IV ONE (14:52)
[2024-03-31 15:32] LABS: Specific Gravity < 1.005 (1.005-1.030); Urine Bilirubin NEGATIVE (Negative); Urine Blood Negative (Negative); Urine Clarity Clear (Clear); Urine Color Colorless (Yellow); Urine Glucose NEGATIVE (Negative); Urine Ketones NEGATIVE (Negative); Urine Microscopic Reflex YN NO UMIC; Urine Nitrite NEGATIVE (Negative); Urine Protein NEGATIVE (Negative); Urine Urobilinogen Normal (Normal); Urine pH 5.5 (5.0-7.0)
--- NOTE | 2024-03-31 15:44 | EDPHYS ---
Physician Documentation [facility] Name: Karlos Leblanc Age: 58 yrs Sex: Male : 1965 Arrival Date: 03/31/2024 Time: 11:16 Bed 8 Private MD: ED Physician Aaron Pichardo HPI: 03/31 12:14 This 58 yrs old Male presents to ER via EMS with complaints of riya Nausea/Vomiting, Foot Pain. 12:14 The patient presents to the emergency department with nausea, vomiting. riya Historical: - Allergies: 11:23 NKDA; ko1 - Home Meds: 11:23 amlodipine oral [Active]; Aspirin Oral [Active]; clopidogrel oral [Active]; ko1 escitalopram oxalate oral [Active]; atorvastatin oral [Active]; Methocarbamol Oral [Active]; levetiracetam oral [Active]; sertraline oral [Active]; - PMHx: 11:23 Chronic obstructive lung disease; Seizures; Myocardial infarction; Hypertension; ko1 vascular disease (Right toes amputati); - PSHx: 11:23 cardiac stents; Left Leg Amputation (below the knee); Right toes amputation; ko1 - Immunization history:: Adult Immunizations up to date. - Infectious Disease History:: Denies. - Social history:: Smoking status: Patient reports the use of cigarette tobacco products, smokes one pack cigarettes per day. ROS: 12:15 MS/extremity: Positive for decreased range of motion, of the right foot, riya 12:15 Constitutional: Negative for fever, chills, and weight loss, Eyes: Negative for injury, pain, redness, and discharge, ENT: Negative for injury, pain, and discharge, Neck: Negative for injury, pain, and swelling, Cardiovascular: Negative for chest pain, palpitations, and edema, Respiratory: Negative for shortness of breath, cough, wheezing, and pleuritic chest pain, Abdomen/GI: Negative for abdominal pain, nausea, vomiting, diarrhea, and constipation, : Negative for injury, bleeding, discharge, and swelling, Skin: Negative for injury, rash, and discoloration, Neuro: Negative for headache, weakness, numbness, tingling, and seizure, Psych: Negative for depression, anxiety, suicide ideation, homicidal ideation, and hallucinations, Allergy/Immunology: Negative for hives, rash, and allergies, Endocrine: Negative for neck swelling, polydipsia, polyuria, polyphagia, and marked weight changes, Hematologic/Lymphatic: Negative for swollen nodes, abnormal bleeding, and unusual bruising, 12:15 Back: Positive for injury or acute deformity, decreased range of motion, pain at rest, pain with movement, flank pain, radiated pain, 12:15 MS/extremity: Positive for pain, swelling, tenderness, of the right foot, Exam: 12:15 Constitutional: This is a well developed, well nourished patient who is awake, alert, riya and in no acute distress. Head/Face: Normocephalic, atraumatic. Eyes: Pupils equal round and reactive to light, extra-ocular motions intact. Lids and lashes normal. Conjunctiva and sclera are non-icteric and not injected. Cornea within normal limits. Periorbital areas with no swelling, redness, or edema. ENT: Nares patent. No nasal discharge, no septal abnormalities noted. Tympanic membranes are normal and external auditory canals are clear. Oropharynx with no redness, swelling, or masses, exudates, or evidence of obstruction, uvula midline. Mucous membranes moist. Neck: Trachea midline, no thyromegaly or masses palpated, and no cervical lymphadenopathy. Supple, full range of motion without nuchal rigidity, or vertebral point tenderness. No Meningismus. Chest/axilla: Normal chest wall appearance and motion. Nontender with no deformity. No lesions are appreciated. Cardiovascular: Regular rate and rhythm with a normal S1 and S2. No gallops, murmurs, or rubs. Normal PMI, no JVD. No pulse deficits. Respiratory: Lungs have equal breath sounds bilaterally, clear to auscultation and percussion. No rales, rhonchi or wheezes noted. No increased work of breathing, no retractions or nasal flaring. Male : Normal genitalia with no discharge or lesions. Skin: Warm, dry with normal turgor. Normal color with no rashes, no lesions, and no evidence of cellulitis. MS/ Extremity: Pulses equal, no cyanosis. Neurovascular intact. Full, normal range of motion. Neuro: Awake and alert, GCS 15, oriented to person, place, time, and situation. Cranial nerves II-XII grossly intact. Motor strength 5/5 in all extremities. Sensory grossly intact. Cerebellar exam normal. Normal gait. Psych: Awake, alert, with orientation to person, place and time. Behavior, mood, and affect are within normal limits. 12:15 Abdomen/GI: Inspection: abdomen appears normal, Bowel sounds: normal, Palpation: moderate abdominal tenderness, in the anterior aspect of left lateral abdomen, posterior aspect of left lateral abdomen, left upper quadrant and left lower quadrant, Liver: no appreciated palpable abnormalities, Hernia: not appreciated, 12:15 Musculoskeletal/extremity: ROM: limited active range of motion due to pain, limited passive range of motion due to pain, Circulation is intact in all extremities. decreased sensation, Compartment Syndrome exam of affected extremity: is normal. Weight bearing: is unable to bear weight, DVT Exam: no swelling, no appreciated bluish discoloration, no increased warmth, pain, tenderness, erythema, Vital Signs: 11:22 BP 128 / 62; Pulse 78; Resp 15; Temp 97.8; Pulse Ox 98% ; ko1 13:54 BP 136 / 59; Pulse 81; Resp 15; Pulse Ox 100% ; jl7 15:00 BP 114 / 73; Pulse 75; Resp 16; Pulse Ox 100% ; jl7 16:29 BP 166 / 66; Pulse 83; Resp 15; Pulse Ox 100% ; jl7 MDM: 11:20 Medical Screening Exam initiated riya 12:18 Differential diagnosis: intra-abdominal injury, closed head injury, C spine fracture, T riya spine fracture, L spine fracture, fracture, sprain, arthritis, cellulitis, Nonspecific abd pain. Data reviewed: vital signs, nurses notes, lab test result(s). Consideration of Admission/Observation Escalation of care including admission/observation considered. I considered the following discharge prescriptions or medication management in the emergency department Medications were administered in the Emergency Department. See MAR. Independent interpretation of the following test(s) in the Emergency Department EKG: See my EKG interpretation above CT Scan: My interpretation is ct trauma. Test considered but Not performed: MRI: no mri. Historians other than the Patient: EMS: ems well informed. Care significantly affected by the following chronic conditions: Hypertension, Congestive Heart Failure, Chronic Obstructive Pulmonary Disease, Chronic Kidney Disease. 03/31 11:33 Order name: Basic Metabolic Panel; Complete Time: 14:22 [facility] 03/31 11:33 Order name: CBC with Diff; Complete Time: 14:22 [facility] 03/31 11:33 Order name: LFT's; Complete Time: 14:22 [facility] 03/31 11:33 Order name: Magnesium; Complete Time: 14:22 [facility] 03/31 11:33 Order name: NT PRO-BNP; Complete Time: 14:22 [facility] 03/31 11:33 Order name: PT-INR; Complete Time: 14:22 [facility] 03/31 11:33 Order name: Troponin HS; Complete Time: 14:22 [facility] 03/31 11:33 Order name: Urinalysis w/ reflexes; Complete Time: 15:43 [facility] 03/31 11:34 Order name: CRP; Complete Time: 14:22 [facility] 03/31 11:34 Order name: Blood Culture Adult (2) [facility] 03/31 11:34 Order name: Lactate w/ 2H reflex if indic.; Complete Time: 14:22 [facility] 03/31 15:47 Order name: ETOH Level; Complete Time: 16:31 [facility] 03/31 16:14 Order name: Ghost Lactate-NO COLLECT Timer; Complete Time: 16:31 [facility] 03/31 17:04 Order name: Lactate Sepsis 2 HR Follow-up [facility] 03/31 11:33 Order name: XRAY Chest (1 view); Complete Time: 14:22 [facility] 03/31 11:34 Order name: Foot Right 3 View XRAY; Complete Time: 14:22 [facility] 03/31 12:13 Order name: CT Head C Spine; Complete Time: 14:22 [facility] 03/31 12:13 Order name: CT Chest Abdomen Pelvis W/O Contrast; Complete Time: 14:22 [facility] 03/31 11:33 Order name: Cardiac monitoring; Complete Time: 13:45 [facility] 03/31 11:33 Order name: EKG - Nurse/Tech; Complete Time: 14:24 [facility] 03/31 11:33 Order name: IV Saline Lock; Complete Time: 13:45 [facility] 03/31 11:33 Order name: Labs collected and sent; Complete Time: 13:45 [facility] 03/31 11:33 Order name: O2 Per Protocol; Complete Time: 13:45 [facility] 03/31 11:33 Order name: O2 Sat Monitoring; Complete Time: 13:45 [facility] 03/31 11:33 Order name: Seizure Precautions; Complete Time: 14:05 [facility] Administered Medications: 13:50 Drug: NS 0.9% IV 1000 ml IV at 125 ml/hr continuous Route: IV; Rate: 125 ml/hr; Site: [facility] right antecubital; 16:36 Follow up: IV Status: Infusion continued upon admission ko1 13:50 Drug: morphine IVP or IV 4 mg IVP once over 4 mins Route: IVP; Infused Over: 4 mins; [facility] Site: right antecubital; 14:05 Follow up: Response: No adverse reaction ko1 13:50 Drug: Ondansetron IVP 4 mg IVP once; over 2 minutes Route: IVP; Site: right antecubital;[facility] 14:05 Follow up: Response: No adverse reaction ko1 13:55 Drug: Keppra IV 1000 mg IV at per protocol once Route: IV; Rate: per protocol; Site: [facility] right antecubital; 14:10 Follow up: Response: No adverse reaction; IV Status: Completed infusion; IV Intake: ko1 100ml 14:55 Drug: NS 0.9% IV 1000 ml IV at 1000 ml once; to be given as a bolus over 60 minutes ko1 Route: IV; Rate: 1000 ml; Site: right antecubital; 16:35 Follow up: Response: No adverse reaction; IV Status: Completed infusion; IV Intake: ko1 1000ml 14:55 Drug: Piperacillin-Tazobactam IVPB 3.375 grams IVPB once over 60 mins; (mix in NS 100 ko1 mL) Route: IVPB; Infused Over: 60 mins; Site: right antecubital; 15:59 Follow up: Response: No adverse reaction; IV Status: Completed infusion; IV Intake: ko1 100ml 15:59 Drug: Potassium PO Effervescent Tablet 50 mEq PO once; dissolve in 4 ounces of water or ko1 juice Route: PO; 16:35 Follow up: Response: No adverse reaction ko1 Disposition Summary: 03/31/24 15:44 Hospitalization Ordered Notes: Hospitalization Status: Observation riya Provider: Nik Angel cha Location: Telemetry/MedSurg (observation) riya Condition: Fair riya Problem: new riya Symptoms: have improved riya Bed/Room Type: Standard riya Room Assignment: 229(03/31/24 16:12) bd Diagnosis - Fall from non-moving wheelchair riya - Disruption of wound, unspecified - WORSENING riya - Hypokalemia riya - Tobacco abuse counseling riya - Tobacco use riya - Alcohol abuse riya - Abnormal finding of blood chemistry, unspecified - ELEVATED LACTATE riya Forms: - Medication Reconciliation Form riya - SBAR form riya - Leadership Thank You Letter riya Signatures: Dispatcher [employer] EDMS Josiane Douglas Corey, MD MD cha Attema, Lee, AIRPLANE AND ENGINE INSPECTOR-C AIRPLANE AND ENGINE INSPECTOR-Cla1 Davy Garza, RN RN jl7 Cheryl Taylor RN RN ko1 Corrections: (The following items were deleted from the chart) 11:33 11:33 Chest Single View+RAD.RAD.BRZ ordered. EDMS EDMS 11:34 11:34 C-REACTIVE PROTEIN+C.LAB.BRZ ordered. EDMS EDMS 11:34 11:34 BLOOD CULTURE*+BA.LAB.BRZ ordered. EDMS EDMS 11:34 11:34 LACTATE+C.LAB.BRZ ordered. EDMS EDMS 16:12 15:44 [facility]
--- NOTE | 2024-03-31 15:44 | ER ---
Nurse's Notes [facility] Name: Karlos Leblanc Age: 58 yrs Sex: Male : 1965 Arrival Date: 03/31/2024 Time: 11:16 Bed 8 Private MD: Diagnosis: Fall from non-moving wheelchair;Disruption of wound, unspecified-WORSENING;Hypokalemia;Tobacco abuse counseling;Tobacco use;Alcohol abuse;Abnormal finding of blood chemistry, unspecified-ELEVATED LACTATE Presentation: 03/31 11:22 Chief complaint: EMS states: patient called for "foot pain" and nausea and vomiting. ko1 Coronavirus screen: At this time, the client does not indicate any symptoms associated with coronavirus-19. Ebola Screen: No symptoms or risks identified at this time. Initial Sepsis Screen: Does the patient meet any 2 criteria? No. Patient's initial sepsis screen is negative. Does the patient have a suspected source of infection? No. Patient's initial sepsis screen is negative. Risk Assessment: Do you want to hurt yourself or someone else? Patient reports no desire to harm self or others. Onset of symptoms was March 31, 2024. 11:22 Method Of Arrival: EMS: [facility] ko1 11:22 Acuity: KENIA 3 ko1 Triage Assessment: 11:23 General: Appears unkempt, Behavior is calm, cooperative, appropriate for age. Pain: ko1 Complains of pain in right avalos. GI: Reports nausea. Historical: - Allergies: 11:23 NKDA; ko1 - Home Meds: 11:23 amlodipine oral [Active]; Aspirin Oral [Active]; clopidogrel oral [Active]; ko1 escitalopram oxalate oral [Active]; atorvastatin oral [Active]; Methocarbamol Oral [Active]; levetiracetam oral [Active]; sertraline oral [Active]; - PMHx: 11:23 Chronic obstructive lung disease; Seizures; Myocardial infarction; Hypertension; ko1 vascular disease (Right toes amputati); - PSHx: 11:23 cardiac stents; Left Leg Amputation (below the knee); Right toes amputation; ko1 - Immunization history:: Adult Immunizations up to date. - Infectious Disease History:: Denies. - Social history:: Smoking status: Patient reports the use of cigarette tobacco products, smokes one pack cigarettes per day. Screenin:00 [facility] ED Fall Risk Assessment (Adult) History of falling in the last 3 months, jl7 including since admission No falls in past 3 months (0 pts) Confusion or Disorientation No (0 pts) Intoxicated or Sedated No (0 pts) Impaired Gait No (0 pts) Mobility Assist Device Used Yes (1 pt) Altered Elimination No (0 pt) Score/Fall Risk Level 0 - 2 = Low Risk Oriented to surroundings, Maintained a safe environment. Abuse screen: Denies threats or abuse. Denies injuries from another. Nutritional screening: No deficits noted. Tuberculosis screening: No symptoms or risk factors identified. Assessment: 12:30 General: Appears in no apparent distress. uncomfortable, Behavior is calm, cooperative, jl7 appropriate for age. Pain: Denies pain. Neuro: Level of Consciousness is awake, alert, obeys commands, Oriented to person, place, time, situation. Cardiovascular: Patient's skin is warm and dry. Respiratory: Airway is patent Respiratory effort is even, unlabored, Respiratory pattern is regular, symmetrical. GI: Abdomen is non-distended, Reports nausea, vomiting. : No signs and/or symptoms were reported regarding the genitourinary system. Derm: Skin is pink, warm \\T\\ dry. Musculoskeletal: bilateral feet amputation. 13:30 Reassessment: Patient appears in no apparent distress at this time. No changes from jl7 previously documented assessment. Patient and/or family updated on plan of care and expected duration. Pain level reassessed. Patient is alert, oriented x 3, equal unlabored respirations, skin warm/dry/pink. 14:30 Reassessment: Patient appears in no apparent distress at this time. No changes from jl7 previously documented assessment. Patient and/or family updated on plan of care and expected duration. Pain level reassessed. Patient is alert, oriented x 3, equal unlabored respirations, skin warm/dry/pink. 15:30 Reassessment: Patient appears in no apparent distress at this time. No changes from jl7 previously documented assessment. Patient and/or family updated on plan of care and expected duration. Pain level reassessed. Patient is alert, oriented x 3, equal unlabored respirations, skin warm/dry/pink. Vital Signs: 11:22 BP 128 / 62; Pulse 78; Resp 15; Temp 97.8; Pulse Ox 98% ; ko1 13:54 BP 136 / 59; Pulse 81; Resp 15; Pulse Ox 100% ; jl7 15:00 BP 114 / 73; Pulse 75; Resp 16; Pulse Ox 100% ; jl7 16:29 BP 166 / 66; Pulse 83; Resp 15; Pulse Ox 100% ; jl7 ED Course: 11:18 Patient arrived in ED. ko1 11:20 Aaron Pichardo MD is Attending Physician. riya 11:23 Triage completed. ko1 11:23 Arm band placed on right wrist. Patient placed in an exam room, on a stretcher, on ko1 pulse oximetry, Patient notified of wait time. 12:27 Davy Garza, TAVO is Primary Nurse. jl7 12:30 XRAY Chest (1 view) In Process Unspecified. EDMS 12:30 Foot Right 3 View XRAY In Process Unspecified. EDMS 12:30 CT Head C Spine In Process Unspecified. EDMS 12:31 CT Chest Abdomen Pelvis W/O Contrast In Process Unspecified. EDMS 13:32 Initial lab(s) drawn, by az, sent to lab. First set of blood cultures drawn by az. jl7 13:41 Inserted saline lock: 20 gauge in right antecubital area, using aseptic technique. jl7 Blood collected. Flushed with 10 mL NS. 13:41 Second set of blood cultures drawn by az. jl7 14:00 EKG done, by ED staff, reviewed by Aaron Pichardo MD. jl7 15:00 Patient has correct armband on for positive identification. Bed in low position. Call jl7 light in reach. Side rails up X2. Provided Education on: use of call marino. Client placed on continuous cardiac and pulse oximetry monitoring. NIBP monitoring applied. 15:41 Nik Angel is Hospitalizing Provider. riya 16:26 ETOH Level Sent. ko1 16:31 No provider procedures requiring assistance completed. Patient admitted, IV remains in jl7 place. intact, No redness/swelling at site. 16:34 Repeat lab(s) drawn. by me, sent to lab. ko1 Administered Medications: 13:50 Drug: NS 0.9% IV 1000 ml IV at 125 ml/hr continuous Route: IV; Rate: 125 ml/hr; Site: [facility] right antecubital; 16:36 Follow up: IV Status: Infusion continued upon admission ko1 13:50 Drug: morphine IVP or IV 4 mg IVP once over 4 mins Route: IVP; Infused Over: 4 mins; jl7 Site: right antecubital; 14:05 Follow up: Response: No adverse reaction ko1 13:50 Drug: Ondansetron IVP 4 mg IVP once; over 2 minutes Route: IVP; Site: right antecubital;jl7 14:05 Follow up: Response: No adverse reaction ko1 13:55 Drug: Keppra IV 1000 mg IV at per protocol once Route: IV; Rate: per protocol; Site: [facility] right antecubital; 14:10 Follow up: Response: No adverse reaction; IV Status: Completed infusion; IV Intake: ko1 100ml 14:55 Drug: NS 0.9% IV 1000 ml IV at 1000 ml once; to be given as a bolus over 60 minutes ko1 Route: IV; Rate: 1000 ml; Site: right antecubital; 16:35 Follow up: Response: No adverse reaction; IV Status: Completed infusion; IV Intake: ko1 1000ml 14:55 Drug: Piperacillin-Tazobactam IVPB 3.375 grams IVPB once over 60 mins; (mix in NS 100 ko1 mL) Route: IVPB; Infused Over: 60 mins; Site: right antecubital; 15:59 Follow up: Response: No adverse reaction; IV Status: Completed infusion; IV Intake: ko1 100ml 15:59 Drug: Potassium PO Effervescent Tablet 50 mEq PO once; dissolve in 4 ounces of water or ko1 juice Route: PO; 16:35 Follow up: Response: No adverse reaction ko1 Medication: 15:30 VIS not applicable for this client. jl7 Intake: 14:10 IV: 100ml; Total: 100ml. ko1 15:59 IV: 100ml; Total: 200ml. ko1 16:35 IV: 1000ml; Total: 1200ml. ko1 Outcome: 15:44 Decision to Hospitalize by Provider. riya 16:39 Admitted to Tele accompanied by tech, via wheelchair, room 229, with chart, jl7 16:39 Condition: stable 16:39 Discharge instructions given to patient, Instructed on the need for admit, Demonstrated understanding of instructions, 17:21 Patient left the ED. jl7 Signatures: Dispatcher [employer] EDAaron De Jesus MD MD riya Garza, Jahala, RN RN jl7 Cheryl Taylor RN RN ko1
[2024-03-31] MEDS ORDERED: POTASSIUM 25 MEQ EFFERV TAB ONE (15:53)
--- NOTE | 2024-03-31 16:31 | P.HP ---
Certification for Inpatient Patient admitted to: Observation With expected LOS: <2 Midnights Patient will require the following post-hospital care: None Practitioner: I am a practitioner with admitting privileges, knowledge of patient current condition, hospital course, and medical plan of care. Services: Services provided to patient in accordance with Admission requirements found in Title 42 Section 412.3 of the Code of Federal Regulations Patient History Date of Service: 03/31/24 Reason for admission: Seizures, elevated lactate History of Present Illness: 58-year-old male with history of alcohol use disorder, tobacco use disorder, PAD, seizure disorder, hypertension, hyperlipidemia, CAD, previous left BKA, right toe imitation presents emergency department chief complaint of seizure, fall, foot pain. He reports that has been having seizures more frequently his last 1 was on Sunday, had another 1 today resulting in a fall out of his wheelch air. Patient was evaluated in the emergency department his labs were significant for an elevated lactate level 3.6 sodium 133 potassium 3.0 bicarb 19 x-ray of the right foot showed sequela of amputation. CT head/C-spine, chest abdomen pelvis were negative for acute traumatic findings. ED prior wishes to admit patient under observation for further evaluation management of seizures, foot pain, el evated lactate Allergies No Known Allergies Allergy (Verified 11/17/23 03:52) Home Medications: Medihoney [Medihoney Woundcare Gel*] 1 appl TOP DAILY tube 12/10/23 Doxycycline Hyclate 100 mg PO BID 21 Days #42 tab 01/19/24 Aspirin [Aspirin EC 81 MG] 81 mg PO DAILY #30 tab 01/21/24 Atorvastatin Calcium 40 mg PO BEDTIME #30 tab 01/21/24 Buspirone HCl 2 tab PO BID #60 tab 01/21/24 Clopidogrel Bisulfate [Plavix*] 75 mg PO DAILY #30 tab 01/21/24 Escitalopram Oxalate 20 mg PO DAILY #30 tab 01/21/24 Gabapentin [Neurontin*] 200 mg PO TID #120 cap 01/21/24 Multivit-Min/Iron/Folic Acid/K [Multi-Day Plus Minerals Tablet] 1 tab PO DAILY #30 tab 01/21/24 Sertraline [Zoloft*] 100 mg PO DAILY #30 tab 01/21/24 methocarbamoL [Methocarbamol] 500 mg PO TID #90 tab 01/21/24 Collagenase [Santyl Ointment*] 1 appl TOP DAILY #1 tube 03/12/24 Hydrocodone 7.5/APAP 325 [[place] 7.5/325 mg*] 1 tab PO Q6HP PRN #20 tab 03/12/24 PHENYTOIN ER Cap [Dilantin ER Cap*] 300 mg PO BEDTIME #90 cap 03/12/24 levETIRAcetam [Keppra*] 1,000 mg PO BID #120 tab 03/12/24 levoFLOXacin [Levaquin*] 750 mg PO DAILY 21 Days #10 tab 03/12/24 metroNIDAZOLE [Flagyl*] 500 mg PO TID 21 Days #30 tab 03/12/24 - Past Medical/Surgical History Diabetic: No -: HTN -: CHF, diastolic dysfunction -: COPD -: CAD -: PVD -: Left & right partial foot amputation -: History of osteomyelitis -: History of drug use -: Alcohol abuse -: Tobacco abuse -: GERD -: Rt great toe & 2nd toe amputated-Dec 2015 -: Left partial foot amputation-January 2019 -: right partial foot amputation Psychosocial/ Personal History: Currently stays at [facility] under SNF - Family History Father -: Cancer Mother -: Cancer - Social History Smoking Status: Current every day smoker Alcohol use: No CD- Drugs: No Caffeine use: No Place of Residence: Home Review of Systems 10-point ROS is otherwise unremarkable Musculoskeletal: Foot Pain Neurological: Seizures Physical Examination - Physical Exam General: Alert, In no apparent distress, Oriented x3 HEENT: Atraumatic, PERRLA, Mucous membr. moist/pink, EOMI Neck: Supple, 2+ carotid pulse no bruit, No LAD Respiratory: Clear to auscultation bilaterally, Normal air movement Cardiovascular: Regular rate/rhythm, Normal S1 S2 Gastrointestinal: Normal bowel sounds, No tenderness Musculoskeletal: No tenderness Integumentary: No rashes Neurological: Normal speech, Normal strength at 5/5 x4 extr, Normal tone, Normal affect - Studies Laboratory Data (last 24 hrs) 03/31/24 03/31/24 03/31/24 13:41 13:41 13:41 WBC 8.60 Hgb 13.3 L Hct 40.4 Plt Count 257 PT 15.2 H INR 1.37 Sodium 133 L Potassium 3.0 L BUN 7 Creatinine 1.05 Glucose 89 Magnesium 2.3 Total Bilirubin 0.4 AST 29 ALT 33 Alkaline Phosphatase 101 Assessment and Plan - Plan Assessment: Seizures Elevated lactate Hyponatremia Hypokalemia History of PAD, CAD Hypertension Hyperlipidemia History of left BKA History of right TMA with right foot pain Alcohol use disorder Tobacco use disorder Plan: Seizures Elevated lactate Hyponatremia Hypokalemia Reports possible changes medication recently for seizures Will need to confirm home medications Received loading dose of Keppra in ED, restart Keppra Seizure precautions Suspect elevated lactate is from seizures, dehydration Continue IV fluids overnight Potassium protocol in place History of PAD, CAD Hypertension Hyperlipidemia Continue home medications when verified History of left BKA History of right TMA with right foot pain Continue empiric antibiotic General Surgery consultation Alcohol use disorder Tobacco use disorder Counseled on need for cessation DVT PPX: Lovenox Code status: Full Discharge Plan: Home Plan to discharge in: 24 Hours - Advance Directives Does patient have a Living Will: No Does patient have a Durable POA for Healthcare: No - Code Status/Comfort Care Code Status Assessed: Yes (Full code) Critical Care: No Time Spent Managing Pts Care (In Minutes): 61
[2024-03-31] MEDS ORDERED: ONDANSETRON 4 MG/2 ML VIAL IV PRN (17:50)
[2024-03-31] MEDS: NA CHLORIDE 0.9% 1,000 ML IV SCH (17:50)
[2024-03-31 17:57] VITALS: O2SAT 98
[2024-03-31 18:15] VITALS: BMI 26.4
[2024-03-31] MEDS ORDERED: PIPER TAZO 3.375 GM in NA CHLORIDE 0.9% 100 ML IV SCH (20:00)
[2024-03-31] MEDS ORDERED: HYDROCODONE/APAP 5/325 MG TAB PO PRN (20:55)
[2024-03-31] MEDS: levETIRAcetam 500 MG TAB PO SCH (21:37)
[2024-03-31] MEDS: MORPHINE 2 MG/ML SYR IV PRN (21:37)
[2024-03-31] MEDS: ATORVASTATIN 40 MG TAB PO SCH (21:37)
[2024-03-31] MEDS: PIPER TAZO 3.375 GM in NA CHLORIDE 0.9% 100 ML IV SCH (23:18)
[2024-04-01 05:00] LABS: Absolute Eosinophils 0.6 K/uL (0-0.5); Absolute Monocytes 0.7 K/uL (0.1-1.3); Absolute Neutrophil 4.4 K/uL (1.8-8.0); Basophils % 0.3 % (0-1.3); Eosinophils % 7.5 % (0-4.4); Hematocrit 34.4 % (39.6-49.0); Hemoglobin 11.5 g/dL (13.6-17.9); Lymphocytes % 25.9 % (15.3-44.8); MCH 32.2 pg (27.0-35.0); MCHC 33.5 g/dL (32.0-36.0); MCV 96.2 fL (80-100); MPV 7.8 fL (7.6-11.3); Monocytes % 8.7 % (3.3-12.3); Neutrophils % 57.6 % (41.7-73.7); Platelets 208 thou/uL (152-406); RBC Red Blood Cell Count 3.57 M/uL (4.33-5.43); Red Cell Distribution Width 17.1 % (12.1-15.2)
[2024-04-01 05:13] LABS: Albumin 2.5 g/dL (3.4-5.0); Albumin/Globulin Ratio 0.7 (1.1-1.8); Bilirubin Total 0.3 mg/dL (0.2-1.0); Globulin 3.4 g/dL (2.3-3.5); Protein, Total 5.9 g/dL (6.4-8.2)
[2024-04-01] MEDS ORDERED: Levofloxacin500mg IV 500 MG/100 ML BAG IV SCH (09:00)
[2024-04-01] MEDS: ASPIRIN EC 81 MG TAB PO SCH (09:11)
[2024-04-01] MEDS: ENOXAPARIN 40 MG/0.4 ML SQ SCH (09:11)
[2024-04-01] MEDS: CLOPIDOGREL 75 MG TABLET PO SCH (09:11)
[2024-04-01 12:10] VITALS: BP 121/69; TEMP 97.3
--- NOTE | 2024-04-01 12:20 | EKG ---
Test Date: 2024-03-31 Test Time: 14:09:42 Cloth Folder Hand: KHOA MEASUREMENT RESULTS: Intervals: Rate: 76 OH: 150 QRSD: 84 QT: 414 QTc: 465 [place]: P: 79 OH: 150 QRS: 58 T: 90 INTERPRETIVE STATEMENTS: Normal sinus rhythm Nonspecific T wave abnormality Prolonged QT Abnormal ECG Compared to ECG 03/10/2024 17:43:55 T-wave abnormality now present ST (T wave) deviation no longer present Possible ischemia no longer present Electronically Signed On 04-01-24 12:17:03 NARCOTICS INVESTIGATOR by Jeff Rehman
[2024-04-01] MEDS: COLLAGENASE 30 GM OINTMENT TOP SCH (14:14)
--- NOTE | 2024-04-01 14:14 | P.DS ---
Admission Date: 03/31/24 Discharge Date: 04/01/24 Disposition: ROUTINE DISCHARGE Discharge Condition: GOOD Reason for Admission: Seizures, elevated lactate Brief History of Present Illness: 58-year-old male with history of alcohol use disorder, tobacco use disorder, PAD, seizure disorder, hypertension, hyperlipidemia, CAD, previous left BKA, right toe imitation presents emergency department chief complaint of seizure, fall, foot pain. He reports that has been having seizures more frequently his last 1 was on Sunday, had another 1 today resulting in a fall out of his wheelchair. Patient was evaluated in the emergency department his labs were significant for an elevated lactate level 3.6 sodium 133 potassium 3.0 bicarb 19 x-ray of the right foot showed sequela of amputation. CT head/C-spine, chest abdomen pelvis were negative for acute traumatic findings. ED prior wishes to admit patient under observation for further evaluation management of seizures, foot pain, elevated lactate Hospital Course: Assessment: Seizures Elevated lactate Hyponatremia Hypokalemia History of PAD, CAD Hypertension Hyperlipidemia History of left BKA History of right TMA with right foot pain Alcohol use disorder Tobacco use disorder Patient was admitted to the hospital for seizure, elevated lactate, foot wound. He was started back on his Keppra 1000 mg by mouth twice daily and Dilantin 300 mg at bedtime and had no further seizure-like activity. He does admit to drinking occasionally, did have a few beers before this seizure. He was counseled to avoid alcohol as it lowers the seizure threshold. He also has a known wound to his right foot where the previous TMA. This wound was evaluated by his general surgeon Dr. Lay who recommends using Santyl and Vashe for now but instructed patient to call his clinic to set up an appointment to switch over to daily mesalt. General surgery also recommended 1 week of p.o. antibiotics which will be sent to his pharmacy clindamycin 300 mg by mouth 3 times daily Please continue your other home medications as previously prescribed Please call Dr. Lay's office to set up an appointment Please follow-up with your neurologist/provider that prescribes your seizure medications. Avoid drinking alcohol as this can lower your seizure threshold Vital Signs/Physical Exam: Temp Pulse Resp BP Pulse Ox 97.3 F 93 H 17 121/69 98 04/01/24 12:00 04/01/24 12:00 04/01/24 12:00 04/01/24 12:00 04/01/24 12:00 General: Alert, In no apparent distress, Oriented x3 HEENT: Atraumatic, PERRLA Neck: Supple, JVD not distended Respiratory: Clear to auscultation bilaterally, Normal air movement Cardiovascular: Regular rate/rhythm, Normal S1 S2 Gastrointestinal: Normal bowel sounds, No tenderness Musculoskeletal: No tenderness, Other (Rigth BKA, left TMA) Integumentary: No rashes Neurological: Normal speech, Normal tone, Normal affect Laboratory Data at Discharge: WBC 7.60 thou/uL (4.3-10.9) 04/01/24 04:35 Hgb 11.5 g/dL (13.6-17.9) L D 04/01/24 04:35 Hct 34.4 % (39.6-49.0) L 04/01/24 04:35 Plt Count 208 thou/uL (152-406) 04/01/24 04:35 PT 15.2 SECONDS (9.4-12.5) H 03/31/24 13:41 INR 1.37 03/31/24 13:41 Sodium 144 mEq/L (136-145) D 04/01/24 04:35 Potassium 4.0 mEq/L (3.5-5.1) D 04/01/24 04:35 BUN 8 mg/dL (7-18) 04/01/24 04:35 Creatinine 0.96 mg/dL (0.70-1.30) 04/01/24 04:35 Glucose 99 mg/dL (74-106) 04/01/24 04:35 Magnesium 2.3 mg/dL (1.6-2.4) 03/31/24 13:41 Total Bilirubin 0.3 mg/dL (0.2-1.0) 04/01/24 04:35 AST 40 U/L (15-37) H 04/01/24 04:35 ALT 33 U/L (16-61) 04/01/24 04:35 Alkaline Phosphatase 75 U/L (45-117) D 04/01/24 04:35 Home Medications: Aspirin [Aspirin EC 81 MG] 81 mg PO DAILY #30 tab 01/21/24 Atorvastatin Calcium 40 mg PO BEDTIME #30 tab 01/21/24 Buspirone HCl 2 tab PO BID #60 tab 01/21/24 Clopidogrel Bisulfate [Plavix*] 75 mg PO DAILY #30 tab 01/21/24 Escitalopram Oxalate 20 mg PO DAILY #30 tab 01/21/24 Gabapentin [Neurontin*] 200 mg PO TID #120 cap 01/21/24 Multivit-Min/Iron/Folic Acid/K [Multi-Day Plus Minerals Tablet] 1 tab PO DAILY #30 tab 01/21/24 Sertraline [Zoloft*] 100 mg PO DAILY #30 tab 01/21/24 methocarbamoL [Methocarbamol] 500 mg PO TID #90 tab 01/21/24 Collagenase [Santyl Ointment*] 1 appl TOP DAILY #1 tube 03/12/24 Hydrocodone 7.5/APAP 325 [[place] 7.5/325 mg*] 1 tab PO Q6HP PRN #20 tab 03/12/24 PHENYTOIN ER Cap [Dilantin ER Cap*] 300 mg PO BEDTIME #90 cap 03/12/24 levETIRAcetam [Keppra*] 1,000 mg PO BID #120 tab 03/12/24 clindamycin HCL [Clindamycin HCl] 300 mg PO TID #21 cap 04/01/24 New Medications: clindamycin HCL [Clindamycin HCl] 300 mg PO TID #21 cap Physician Discharge Instructions: Patient was admitted to the hospital for seizure, elevated lactate, foot wound. He was started back on his Keppra 1000 mg by mouth twice daily and Dilantin 300 mg at bedtime and had no further seizure-like activity. He does admit to drinking occasionally, did have a few beers before this seizure. He was counseled to avoid alcohol as it lowers the seizure threshold. He also has a known wound to his right foot where the previous TMA. This wound was evaluated by his general surgeon Dr. Lay who recommends using Santyl and Vashe for now but instructed patient to call his clinic to set up an appointment to switch over to daily mesalt. General surgery also recommended 1 week of p.o. antibiotics which will be sent to his pharmacy clindamycin 300 mg by mouth 3 times daily Please continue your other home medications as previously prescribed Please call Dr. Lay's office to set up an appointment Please follow-up with your neurologist/provider that prescribes your seizure medications. Avoid drinking alcohol as this can lower your seizure threshold Diet: Regular Activity: Wheelchair Followup: Faizan Lay MD [ACTIVE - CAN ADMIT] - 2-3 Days NONE,NONE [Primary Care Provider] - 1 Week Time spent managing pt's care (in minutes): 37
[2024-04-01] MEDS ORDERED: PHENYTOIN ER 100 MG CAP PO SCH (21:00)
[2024-04-02] MEDS ORDERED: COLLAGENASE 30 GM OINTMENT TOP SCH (13:10)
== END 2024-04-01 16:48 | disposition home or self-care (01) ==
LOC: ER 11:16 → ERHOLD 16:20 → 2ND 17:01
PROVIDERS: ADMIT Internal Medicine; ATTEND Hospitalist
DX: R56.9 Unspecified convulsions (principal); E87.1 Hypo-osmolality and hyponatremia; E87.6 Hypokalemia; R74.02 Elevation of levels of lactic acid dehydrogenase [LDH]; I25.10 Atherosclerotic heart disease of native coronary artery without angina pectoris; I10 Essential (primary) hypertension; E78.5 Hyperlipidemia, unspecified; R11.2 Nausea with vomiting, unspecified; F10.90 Alcohol use, unspecified, uncomplicated; S91.301A Unspecified open wound, right foot, initial encounter; M79.671 Pain in right foot; Y93.9 Activity, unspecified; W05.0XXA Fall from non-moving wheelchair, initial encounter; Z72.0 Tobacco use; Z89.512 Acquired absence of left leg below knee; Z71.6 Tobacco abuse counseling
CPT/HCPCS: 93005; 87040 ×2; 85025 ×2; 80048; 36415; 83735; 85610; 80076; 83605 ×2; 81003; 84484; 80053; 83880; 86140; 70450; 71250; 72125; 74176; 71045; 73630; 82077; J3590; J1953; J2543 ×3; J1650; J2270 ×2; J2405; J7030 ×3; 96361; 96365; 96375; 99285; G0378

== ENCOUNTER 2024-04-16 10:56 | Inpatient (IN) | payer OTHER ==
[2024-04-16 12:57] LABS: Absolute Lymphocytes (CBC) 1.1 K/uL (0.7-4.9); Absolute Monocytes 1.2 K/uL (0.1-1.3); Absolute Neutrophil 10.6 K/uL (1.8-8.0); Basophils % 0.2 % (0-1.3); Hematocrit 40.3 % (39.6-49.0); Hemoglobin 13.6 g/dL (13.6-17.9); Lymphocytes % 8.6 % (15.3-44.8); MCH 32.5 pg (27.0-35.0); MCHC 33.7 g/dL (32.0-36.0); MCV 96.4 fL (80-100); MPV 8.3 fL (7.6-11.3); Monocytes % 9.1 % (3.3-12.3); Neutrophils % 82.1 % (41.7-73.7); Platelets 170 thou/uL (152-406); RBC Red Blood Cell Count 4.18 M/uL (4.33-5.43); Red Cell Distribution Width 16.3 % (12.1-15.2)
[2024-04-16 13:01] LABS: PT Prothrombin Time 13.6 SECONDS (9.4-12.5); PTT, Activated Partial Thromb 40.8 SECONDS (24.3-36.9); Protime INR 1.22
--- NOTE | 2024-04-16 13:19 | RAD REPORT ---
Exam:Foot Right 3 View CLINICAL HISTORY: Right foot pain FINDINGS: No fracture or dislocation seen Amputation involves digits. Soft tissue ulceration anterior foot. Bones are osteoporotic. No bony destructive lesion seen. If patient continues to have symptoms to suggest osteomyelitis MRI would be recommended
[2024-04-16 13:25] LABS: Albumin 3.5 g/dL (3.4-5.0); Albumin/Globulin Ratio 0.7 (1.1-1.8); Anion Gap 9.2 mEq/L (5.0-15.0); Bilirubin Total 0.6 mg/dL (0.2-1.0); Globulin 5.2 g/dL (2.3-3.5); Potassium 4.2 mEq/L (3.5-5.1); Protein, Total 8.7 g/dL (6.4-8.2)
--- NOTE | 2024-04-16 14:03 | EDPHYS ---
Physician Documentation [facility] Name: Karlos Leblanc Age: 58 yrs Sex: Male : 1965 Arrival Date: 04/16/2024 Time: 10:56 Bed 17 Private MD: ED Physician German Guerin HPI: 04/16 12:20 This 58 yrs old Male presents to ER via EMS with complaints of Wound Check. rn 12:20 Patient presents to ED for recheck of: Open wound. The affected area is on the right rn foot. The patient has experienced similar episodes in the past. Patient reports worsening wound to the right foot. Has required multiple debridements and antibiotics. Reports increase in drainage and smell. Reports subjective fever and chills.. Historical: - Allergies: 11:35 NKDA; jl7 - PMHx: 11:35 Chronic obstructive lung disease; Hypertension; Myocardial infarction; Seizures; jl7 vascular disease (Right toes amputati); - PSHx: 11:35 cardiac stents; Left Leg Amputation (below the knee); Right toes amputation; jl7 - Immunization history:: Adult Immunizations unknown. - Infectious Disease History:: Denies. - Social history:: Smoking status: Patient reports the use of cigarette tobacco products, smokes one-half pack cigarettes per day. - Family history:: not pertinent. - Hospitalizations: : No recent hospitalization is reported. ROS: 12:20 Constitutional: Negative for fever, chills, and weight loss, Cardiovascular: Negative rn for chest pain, palpitations, and edema, Respiratory: Negative for shortness of breath, cough, wheezing, and pleuritic chest pain, Abdomen/GI: Negative for abdominal pain, nausea, vomiting, diarrhea, and constipation, MS/Extremity: Negative for injury and deformity, Skin: Positive for worsening wound with drainage and smell to the right foot Neuro: Negative for headache, weakness, numbness, tingling, and seizure, Exam: 12:20 Constitutional: Disheveled male, no acute distress Cardiovascular: Tachycardic, rn regular Respiratory: No increased work of breathing, no retractions or nasal flaring. MS/ Extremity: No cyanosis, moderate wound to plantar right foot with purulence and foul smell. Vital Signs: 11:32 BP 132 / 67; Pulse 109; Resp 17; Temp 99.4; Pulse Ox 99% ; Weight 81.65 kg; Height 6 jl7 ft. 1 in. ; Pain 10/10; 13:11 BP 130 / 63; Pulse 100; Resp 16; Temp 99.1(O); Pulse Ox 100% on R/A; Pain 8/10; le1 14:38 BP 110 / 54; Pulse 107; Resp 21; Temp 101.7(O); Pulse Ox 97% on R/A; Pain 8/10; le1 17:12 BP 116 / 54; Pulse 79; Resp 21; Temp 98.4(O); Pulse Ox 99% on R/A; le1 18:23 BP 106 / 58; Pulse 94; Resp 20; Pulse Ox 98% on R/A; le1 11:32 Body Mass Index 23.75 (81.65 kg, 185.42 cm) jl7 11:32 Pain Scale: Adult jl7 13:11 Pain Scale: Adult le1 14:38 Pain Scale: Adult le1 MDM: 11:03 Medical Screening Exam initiated rn 13:56 Differential diagnosis: cellulitis. Differential diagnosis: osteomyelitis. Data rn reviewed: vital signs, nurses notes, lab test result(s), radiologic studies, plain films, and as a result, I will admit patient. Consideration of Admission/Observation Patient was admitted/placed on observation. Escalation of care including admission/observation considered. Counseling: I had a detailed discussion with the patient and/or guardian regarding the historical points, exam findings, and any diagnostic results supporting the discharge/admit diagnosis, lab results, radiology results, the need for further work-up and treatment in the hospital. ED course: Patient with severe sepsis, no shock, elevated lactic acid and WBC. Antibiotics ordered after blood cultures. No indication for 30 mL/kg bolus due to absence of shock. Will admit to hospitalist service for further care and antibiotics. 04/16 11:30 Order name: Blood Culture Adult (2) rn 04/16 11:30 Order name: CBC with Diff; Complete Time: 13:52 rn 04/16 11:30 Order name: CMP; Complete Time: 13:52 rn 04/16 11:30 Order name: Lactate w/ 2H reflex if indic.; Complete Time: 13:52 rn 04/16 11:30 Order name: Protime (+inr); Complete Time: 13:52 rn 04/16 11:30 Order name: Ptt, Activated; Complete Time: 13:52 rn 04/16 13:21 Order name: Glucose, Ancillary Testing; Complete Time: 13:52 EDMS 04/16 15:17 Order name: Ghost Lactate-NO COLLECT Timer; Complete Time: 15:33 EDMS 04/16 15:28 Order name: Glucose, Ancillary Testing; Complete Time: 15:33 EDMS 04/16 15:38 Order name: KEPPRA (LEVETIRACETAM) EDMS 04/16 15:38 Order name: Phenytoin (Dilantin) Level EDMS 04/16 15:38 Order name: ETOH Level la1 04/16 15:38 Order name: UDS la1 04/16 11:30 Order name: XRAY Foot RIGHT 3 View; Complete Time: 13:52 rn 04/16 11:30 Order name: Accucheck; Complete Time: 13:10 rn 04/16 11:30 Order name: Cardiac monitoring; Complete Time: 13:10 rn 04/16 11:30 Order name: EKG - Nurse/Tech; Complete Time: 13:10 rn 04/16 11:30 Order name: IV Saline Lock - Large Bore; Complete Time: 12:51 rn 04/16 11:30 Order name: Labs collected and sent; Complete Time: 13:32 rn 04/16 11:30 Order name: O2 Per Protocol; Complete Time: 12:51 rn 04/16 11:30 Order name: O2 Sat Monitoring; Complete Time: 12:51 rn 04/16 11:30 Order name: Vital Signs; Complete Time: 12:51 rn Administered Medications: 14:27 Drug: vancoMYCIN IVPB 1 grams IVPB once over 2 hrs Route: IVPB; Infused Over: 2 hrs; le1 Site: right wrist; 16:58 Follow up: Response: No adverse reaction; IV Status: Completed infusion le1 14:28 Drug: morphine IVP or IV 4 mg IVP once over 4 mins Route: IVP; Infused Over: 4 mins; le1 Site: right wrist; 16:29 Follow up: Response: Pain is unchanged, physician notified le1 14:43 Drug: Acetaminophen PO 1000 mg PO once Route: PO; le1 16:28 Follow up: Response: Temperature is decreased le1 17:09 Drug: Keppra IV 1000 mg IV at calculated rate once Route: IV; Rate: calculated rate; le1 Site: right wrist; 17:10 Follow up: IV Status: Completed infusion le1 Disposition Summary: 04/16/24 14:03 Hospitalization Ordered Notes: Hospitalization Status: Inpatient Admission rn Provider: Dionicio Guerin rn Condition: Stable rn Problem: new rn Symptoms: have improved rn Bed/Room Type: Standard rn Location: Intensive Care Unit(04/16/24 18:10) Room Assignment: 6-(04/16/24 18:10) Diagnosis - Severe sepsis without septic shock rn - Cellulitis of left lower limb rn Forms: - Medication Reconciliation Form rn - SBAR form rn - Leadership Thank You Letter rn Signatures: Dispatcher [employer] EDMS German Guerin MD MD rn Blanchard, Shelby, RN RN ss Attema, Lee, DATABASE REPORTING CONSULTANT-C DATABASE REPORTING CONSULTANT-Cla1 Davy Garza RN RN jl7 Loki Pat RN RN le1 Corrections: (The following items were deleted from the chart) 11:30 11:30 BLOOD CULTURE*+BA.LAB.BRZ ordered. EDMS EDMS 11:30 11:30 CBC+H.LAB.BRZ ordered. EDMS EDMS 11:30 11:30 COMPREHENSIVE METABOLIC PANEL+C.LAB.BRZ ordered. EDMS EDMS 11:30 11:30 LACTATE+C.LAB.BRZ ordered. EDMS EDMS 11:30 11:30 PROTIME (+INR)+COAG.LAB.BRZ ordered. EDMS EDMS 11:30 11:30 PTT, ACTIVATED+COAG.LAB.BRZ ordered. EDMS EDMS 12:27 12:20 Constitutional: Disheveled male, no acute distress Cardiovascular: Tachycardic, rn regular Respiratory: No increased work of breathing, no retractions or nasal flaring. MS/ Extremity: No cyanosis, moderate wound to right foot with purulence and foul smell. rn 18:10 14:03 Telemetry/MedSurg (Inpatient) rn ss 18:10 14:03 rn ss
--- NOTE | 2024-04-16 14:03 | ER ---
Nurse's Notes [facility] [place] Name: Karlos Leblanc Age: 58 yrs Sex: Male : 1965 Arrival Date: 04/16/2024 Time: 10:56 Bed 17 Private MD: Diagnosis: Severe sepsis without septic shock;Cellulitis of left lower limb Presentation: 04/16 11:30 Note PT WITH PERSONAL WHEELCHAIR ON ARRIVAL FROM EMS, WHEELCHAIR REMAINS WITH PATIENT. jl7 11:32 Chief complaint: EMS states: Toned out for chronic wounds to right lower extremity. jl7 Recent eviction from home, home health nurse cannot see patient without a residence. Coronavirus screen: At this time, the client does not indicate any symptoms associated with coronavirus-19. Ebola Screen: No symptoms or risks identified at this time. Initial Sepsis Screen: Does the patient meet any 2 criteria? No. Patient's initial sepsis screen is negative. Does the patient have a suspected source of infection? No. Patient's initial sepsis screen is negative. Risk Assessment: Do you want to hurt yourself or someone else? Patient reports no desire to harm self or others. Onset of symptoms is unknown. Care prior to arrival: None. 11:32 Acuity: KENIA 3 jl7 11:32 Method Of Arrival: EMS: [facility] jl7 Triage Assessment: 11:35 General: Appears in no apparent distress. uncomfortable, unkempt, Behavior is calm, jl7 cooperative, appropriate for age. Pain: Complains of pain in right leg Pain currently is 10 out of 10 on a pain scale. Derm: Wound noted right foot. Historical: - Allergies: 11:35 NKDA; jl7 - PMHx: 11:35 Chronic obstructive lung disease; Hypertension; Myocardial infarction; Seizures; jl7 vascular disease (Right toes amputati); - PSHx: 11:35 cardiac stents; Left Leg Amputation (below the knee); Right toes amputation; jl7 - Immunization history:: Adult Immunizations unknown. - Infectious Disease History:: Denies. - Social history:: Smoking status: Patient reports the use of cigarette tobacco products, smokes one-half pack cigarettes per day. - Family history:: not pertinent. - Hospitalizations: : No recent hospitalization is reported. Screenin:32 [facility] ED Fall Risk Assessment (Adult) History of falling in the last 3 months, le1 including since admission No falls in past 3 months (0 pts) Confusion or Disorientation No (0 pts) Intoxicated or Sedated No (0 pts) Impaired Gait Yes (1 pt) Mobility Assist Device Used Yes (1 pt) Altered Elimination No (0 pt) Score/Fall Risk Level 0 - 2 = Low Risk Oriented to surroundings, Maintained a safe environment, Educated pt \T\ family on fall prevention, incl call for assistance when getting out of bed, Assessed \T\ reinforced patient's understanding of fall precautions, Hourly rounding (assess needs \T\ fall precautionary measures) done, Used ambulatory aids as needed (educated on \T\ assisted with). Abuse screen: Denies threats or abuse. Nutritional screening: No deficits noted. Tuberculosis screening: No symptoms or risk factors identified. Assessment: 12:31 General: Appears in no apparent distress. unkempt, Behavior is calm, cooperative. le1 Neuro: No deficits noted. Respiratory: No deficits noted. GI: No deficits noted. : No deficits noted. EENT: No deficits noted. Musculoskeletal: Amputation of R toes, L BKA. 18:34 General: Attempted to call report to ICU. Answering person stated nurse had not arrived le1 yet and they will have to call me back.. Vital Signs: 11:32 BP 132 / 67; Pulse 109; Resp 17; Temp 99.4; Pulse Ox 99% ; Weight 81.65 kg; Height 6 jl7 ft. 1 in. ; Pain 10/10; 13:11 BP 130 / 63; Pulse 100; Resp 16; Temp 99.1(O); Pulse Ox 100% on R/A; Pain 8/10; le1 14:38 BP 110 / 54; Pulse 107; Resp 21; Temp 101.7(O); Pulse Ox 97% on R/A; Pain 8/10; le1 17:12 BP 116 / 54; Pulse 79; Resp 21; Temp 98.4(O); Pulse Ox 99% on R/A; le1 18:23 BP 106 / 58; Pulse 94; Resp 20; Pulse Ox 98% on R/A; le1 11:32 Body Mass Index 23.75 (81.65 kg, 185.42 cm) jl7 11:32 Pain Scale: Adult jl7 13:11 Pain Scale: Adult le1 14:38 Pain Scale: Adult le1 ED Course: 10:58 Patient arrived in ED. jl7 11:03 German Guerin MD is Attending Physician. rn 11:35 Triage completed. jl7 11:35 Arm band placed on right wrist. Patient placed in waiting room, Patient notified of jl7 wait time. 11:51 Patient placed in an exam room, on a stretcher. ll1 12:29 Loki Pat, RN is Primary Nurse. le1 12:33 Patient has correct armband on for positive identification. Bed in low position. Call le1 light in reach. Side rails up X2. Provided Education on: Informed patient to use call light if needing assistance. 12:45 Initial lab(s) drawn, by ED staff, sent to lab. First set of blood cultures drawn by ED le1 staff. 12:51 Inserted saline lock: 20 gauge in right wrist, using aseptic technique. Blood collected.le1 12:58 XRAY Foot RIGHT 3 View In Process Unspecified. EDMS 13:12 EKG done, by ED staff, reviewed by German Guerin MD. le1 13:16 Notified ED physician of a critical lab result(s). lactate 2.3. kc6 13:47 Inserted saline lock: 20 gauge in left antecubital area, using aseptic technique. Blood le1 collected. Flushed with 10 mL NS. 13:48 Second set of blood cultures drawn by ED staff. le1 14:00 Dionicio Guerin MD is Hospitalizing Provider. rn 16:16 1616 CM attempted initial assessment, patient was incontinent of stool and nurse was at ane the bedside, delivering care. 17:20 Urine collected: void. le1 18:35 No provider procedures requiring assistance completed. le1 19:45 Patient admitted, IV remains in place. le1 Administered Medications: 14:27 Drug: vancoMYCIN IVPB 1 grams IVPB once over 2 hrs Route: IVPB; Infused Over: 2 hrs; le1 Site: right wrist; 16:58 Follow up: Response: No adverse reaction; IV Status: Completed infusion le1 14:28 Drug: morphine IVP or IV 4 mg IVP once over 4 mins Route: IVP; Infused Over: 4 mins; le1 Site: right wrist; 16:29 Follow up: Response: Pain is unchanged, physician notified le1 14:43 Drug: Acetaminophen PO 1000 mg PO once Route: PO; le1 16:28 Follow up: Response: Temperature is decreased le1 17:09 Drug: Keppra IV 1000 mg IV at calculated rate once Route: IV; Rate: calculated rate; le1 Site: right wrist; 17:10 Follow up: IV Status: Completed infusion le1 Medication: 12:33 VIS not applicable for this client. le1 Outcome: 14:03 Decision to Hospitalize by Provider. rn 19:45 Admitted to ICU accompanied by nurse, via stretcher, room 6, on monitor, with chart, le1 Report called to 1330 19:45 Condition: stable 19:45 Instructed on the need for admit, Demonstrated understanding of instructions, 19:46 Patient left the ED. le1 Signatures: Dispatcher [employer] EDMS German Guerin MD MD rn Leal, Jahala, RN RN [email or web address] Phil Cabral RN RN ll1 Christie Shearer RN RN [email or web address] Loki Pat RN RN [email or web address] Demetria Salazar RN RN ane Corrections: (The following items were deleted from the chart) 12:34 12:31 Musculoskeletal: Amputation of R foot, L BKA. le1 le1 18:24 18:23 BP 106 / 58; Pulse 94bpm; Resp 27bpm; Pulse Ox 98% RA; le1 le1
[2024-04-16] MEDS ORDERED: NA CHLORIDE 0.9% 250 ML ONE (14:23)
[2024-04-16] MEDS ORDERED: VANCOMYCIN 1 GM/VIAL ONE (14:23)
[2024-04-16] MEDS ORDERED: MORPHINE 4 MG/ML SYR ONE (14:27)
[2024-04-16] MEDS ORDERED: ACETAMINOPHEN 500 MG TAB ONE (14:42)
[2024-04-16] MEDS ORDERED: LEVETIRACETAM 500 MG/5 ML VIAL IV ONE (16:59)
[2024-04-16 17:24] LABS: Barbiturates NEGATIVE (NEGATIVE); Benzodiazepines NEGATIVE (NEGATIVE); Cocaine NEGATIVE (NEGATIVE); METHAMPHETAM NEGATIVE (NEGATIVE); Methadone NEGATIVE (NEGATIVE); Opiates POSITIVE (NEGATIVE); Phencyclidine NEGATIVE (NEGATIVE); THC Cannibis NEGATIVE (NEGATIVE)
--- NOTE | 2024-04-16 17:48 | P.HP ---
Certification for Inpatient Patient admitted to: Inpatient With expected LOS: >2 Midnights Patient will require the following post-hospital care: None Practitioner: I am a practitioner with admitting privileges, knowledge of patient current condition, hospital course, and medical plan of care. Services: Services provided to patient in accordance with Admission requirements found in Title 42 Section 412.3 of the Code of Federal Regulations Patient History Date of Service: 04/16/24 Reason for admission: Sepsis, seizure History of Present Illness: 58-year-old male with history of alcohol use disorder, tobacco use disorder, PAD, seizure disorder, hypertension, hyperlipidemia, CAD, previous left BKA, right TMA amputation presents emergency department chief complaint of foot pain and seizure. He was having increasing pain to his right foot and foot reason came to the emergency department, he was evaluated in the emergency department and found to have an elevated white blood cell count of 12.9, initial lactic acid of 2.3 fever to 101. Patient was seen in the ED, complains of pain to that right foot, will be admitted for further evaluation and management of suspected cellulitis/sepsis of the right foot with seizures. Allergies No Known Allergies Allergy (Verified 11/17/23 03:52) Home Medications: Aspirin [Aspirin EC 81 MG] 81 mg PO DAILY #30 tab 01/21/24 Atorvastatin Calcium 40 mg PO BEDTIME #30 tab 01/21/24 Buspirone HCl 2 tab PO BID #60 tab 01/21/24 Clopidogrel Bisulfate [Plavix*] 75 mg PO DAILY #30 tab 01/21/24 Escitalopram Oxalate 20 mg PO DAILY #30 tab 01/21/24 Gabapentin [Neurontin*] 200 mg PO TID #120 cap 01/21/24 Multivit-Min/Iron/Folic Acid/K [Multi-Day Plus Minerals Tablet] 1 tab PO DAILY #30 tab 01/21/24 Sertraline [Zoloft*] 100 mg PO DAILY #30 tab 01/21/24 methocarbamoL [Methocarbamol] 500 mg PO TID #90 tab 01/21/24 Collagenase [Santyl Ointment*] 1 appl TOP DAILY #1 tube 03/12/24 Hydrocodone 7.5/APAP 325 [[place] 7.5/325 mg*] 1 tab PO Q6HP PRN #20 tab 03/12/24 PHENYTOIN ER Cap [Dilantin ER Cap*] 300 mg PO BEDTIME #90 cap 03/12/24 levETIRAcetam [Keppra*] 1,000 mg PO BID #120 tab 03/12/24 clindamycin HCL [Clindamycin HCl] 300 mg PO TID #21 cap 04/01/24 Hydrocodone 5/APAP 325 [[place] 5/325*] 1 tab PO Q8H PRN #10 tab 04/02/24 - Past Medical/Surgical History Diabetic: No -: HTN -: CHF, diastolic dysfunction -: COPD -: CAD -: PVD -: Left & right partial foot amputation -: History of osteomyelitis -: History of drug use -: Alcohol abuse -: Tobacco abuse -: GERD -: Rt great toe & 2nd toe amputated-Dec 2015 -: Left partial foot amputation-January 2019 -: right partial foot amputation Psychosocial/ Personal History: Was previously staying at home in [place], reportedly recently evicted - Family History Father -: Cancer Mother -: Cancer - Social History Alcohol use: Yes CD- Drugs: No Caffeine use: Yes Review of Systems 10-point ROS is otherwise unremarkable Musculoskeletal: Foot Pain Neurological: Seizures Physical Examination - Physical Exam General: Alert, In no apparent distress, Oriented x3 HEENT: Atraumatic, PERRLA, Mucous membr. moist/pink Neck: Supple, 2+ carotid pulse no bruit, No LAD Respiratory: Clear to auscultation bilaterally, Normal air movement Cardiovascular: Regular rate/rhythm, Normal S1 S2 Gastrointestinal: Normal bowel sounds, No tenderness Musculoskeletal: No tenderness Integumentary: Erythema (Erythema present to right foot, with wounds present) Neurological: Normal gait, Normal speech, Normal strength at 5/5 x4 extr, Normal tone, Normal affect Lymphatics: No axilla or inguinal lymphadenopathy - Studies Laboratory Data (last 24 hrs) 04/16/24 04/16/24 04/16/24 12:40 12:40 12:40 WBC 12.90 H Hgb 13.6 Hct 40.3 Plt Count 170 PT 13.6 H INR 1.22 APTT 40.8 H Sodium 131 L Potassium 4.2 BUN 11 Creatinine 1.08 Glucose 107 H Total Bilirubin 0.6 AST 17 ALT 18 Alkaline Phosphatase 79 Assessment and Plan - Plan Assessment: Suspected severe sepsis secondary to right foot cellulitis chronic wounds Seizureshistory of seizures Chronic diastolic ingestive heart failure Hypertension Hyperlipidemia PAD Tobacco use disorder Plan: Suspected severe sepsis secondary to right foot cellulitis chronic wounds Blood cultures obtained in ED Wounds do not look to be grossly infected at this time Possible cellulitis to the right foot With blood cultures, continue IV antibiotics with vancomycin Seizureshistory of seizures Continue Dilantin, Keppra Loaded with Keppra in ED Will discuss case with neurology Check Dilantin, Keppra levels Check EtOH/UDS Seizure precautions Chronic diastolic ingestive heart failure Hypertension Hyperlipidemia PAD Tobacco use disorder Continue home medications, counseled on need for tobacco cessation DVT PPX: Lovenox Code status: Full Discharge Plan: Home Plan to discharge in: 48 Hours - Advance Directives Does patient have a Living Will: No Does patient have a Durable POA for Healthcare: No - Code Status/Comfort Care Code Status Assessed: Yes (Full code) Critical Care: No Time Spent Managing Pts Care (In Minutes): 56
[2024-04-16] MEDS: NA CHLORIDE 0.9% 1,000 ML IV SCH (20:52)
[2024-04-16] MEDS: ATORVASTATIN 40 MG TAB PO SCH (20:53)
[2024-04-16] MEDS: PHENYTOIN ER 100 MG CAP PO SCH (20:53)
[2024-04-16] MEDS: levETIRAcetam 500 MG TAB PO SCH (20:53)
[2024-04-16] MEDS: HYDROCODONE/APAP 5/325 MG TAB PO PRN (20:54)
[2024-04-16] MEDS: VANCOMYCIN 500 MG in NA CHLORIDE 0.9% 100 ML IVPB ONE (20:56)
[2024-04-16 22:29] VITALS: BMI 22.8
[2024-04-16] MEDS: MORPHINE 2 MG/ML SYR IV PRN (23:13)
[2024-04-17 05:50] LABS: Absolute Basophils 0.1 K/uL (0-0.5); Absolute Eosinophils 0.1 K/uL (0-0.5); Absolute Lymphocytes (CBC) 1.4 K/uL (0.7-4.9); Absolute Monocytes 0.8 K/uL (0.1-1.3); Absolute Neutrophil 6.5 K/uL (1.8-8.0); Basophils % 0.7 % (0-1.3); Eosinophils % 1.3 % (0-4.4); Hematocrit 29.9 % (39.6-49.0); Hemoglobin 10.4 g/dL (13.6-17.9); Lymphocytes % 15.4 % (15.3-44.8); MCH 33.3 pg (27.0-35.0); MCHC 34.9 g/dL (32.0-36.0); MCV 95.3 fL (80-100); MPV 8.4 fL (7.6-11.3); Monocytes % 9.4 % (3.3-12.3); Neutrophils % 73.2 % (41.7-73.7); Platelets 132 thou/uL (152-406); RBC Red Blood Cell Count 3.14 M/uL (4.33-5.43)
[2024-04-17 06:16] LABS: Anion Gap 7.6 mEq/L (5.0-15.0); Potassium 3.6 mEq/L (3.5-5.1); Thyroid Stimulating Hormone 0.989 uIU/mL (0.358-3.740)
[2024-04-17] MEDS: ENOXAPARIN 40 MG/0.4 ML SQ SCH (08:42)
[2024-04-17] MEDS: CLOPIDOGREL 75 MG TABLET PO SCH (08:43)
[2024-04-17] MEDS: ASPIRIN EC 81 MG TAB PO SCH (08:43)
[2024-04-17] MEDS: VANCOMYCIN 1.5 GM in NA CHLORIDE 0.9% 500 ML IVPB SCH (08:43)
[2024-04-17] MEDS ORDERED: VANCOMYCIN 1 GM in NA CHLORIDE 0.9% 250 ML IVPB SCH (09:00)
--- NOTE | 2024-04-17 15:49 | P.PN ---
Date of Service: 04/17/24 Subjective: Doing better today C/O pain to right foot No further seizure like activity since admission ROS: 10 point ROS as noted above, otherwise negative Physical exam GEN: Alert, oriented, NAD HEENT: Normal conjunctiva, sclera anicteric CV: Regular rate and rhythm, no edema Pulm: Nonlabored respirations on room air ABD: Soft, nontender, nondistended MSK: No joint tenderness, left bka, right TMA Integumentary: No rashes, mild erythema RLE Neuro: Normal speech, normal affect Vitals reviewed Assessment: Suspected severe sepsis secondary to right foot cellulitis with chronic wounds Seizureshistory of seizures Chronic diastolic ingestive heart failure Hypertension Hyperlipidemia PAD Tobacco use disorder Plan: Suspected severe sepsis secondary to right foot cellulitis with chronic wounds Blood cultures obtained in ED- no growth in 24 hours Wounds do not look to be grossly infected at this time Possible cellulitis to the right foot With blood cultures, continue IV antibiotics with vancomycin Seizureshistory of seizures Continue Dilantin, Keppra Loaded with Keppra in ED Will discuss case with neurology Check Dilantin, Keppra levels Dilantin level low, patient reports he is compliant with meds, will discuss with neuro Check EtOH/UDS-only+ for opiates Seizure precautions Chronic diastolic ingestive heart failure Hypertension Hyperlipidemia PAD Tobacco use disorder Continue home medications, counseled on need for tobacco cessation DVT PPX: Lovenox Code status: Full Discharge Plan: Home Plan to discharge in: 48 Hours Time Spent Managing Pts Care (In Minutes): 35
[2024-04-18 06:05] LABS: Absolute Basophils 0.1 K/uL (0-0.5); Absolute Eosinophils 0.1 K/uL (0-0.5); Absolute Lymphocytes (CBC) 1.7 K/uL (0.7-4.9); Absolute Monocytes 0.9 K/uL (0.1-1.3); Absolute Neutrophil 6.4 K/uL (1.8-8.0); Basophils % 0.9 % (0-1.3); Eosinophils % 1.4 % (0-4.4); Hematocrit 28.5 % (39.6-49.0); Hemoglobin 9.6 g/dL (13.6-17.9); Lymphocytes % 18.5 % (15.3-44.8); MCH 32.6 pg (27.0-35.0); MCHC 33.5 g/dL (32.0-36.0); MCV 97.3 fL (80-100); MPV 8.6 fL (7.6-11.3); Monocytes % 9.8 % (3.3-12.3); Neutrophils % 69.4 % (41.7-73.7); Platelets 113 thou/uL (152-406); RBC Red Blood Cell Count 2.93 M/uL (4.33-5.43)
[2024-04-18 06:24] LABS: Anion Gap 7.7 mEq/L (5.0-15.0); Magnesium 2.2 mg/dL (1.6-2.4); Phosphorus 3.2 mg/dL (2.5-4.9); Potassium 3.7 mEq/L (3.5-5.1)
[2024-04-18] MEDS: LIDOCAINE HCL/EPINEPHRINE 20 ML MDV ONE (13:06)
[2024-04-18] MEDS: Ringers Lactate 1,000 ML IV ONE (13:30)
[2024-04-18] MEDS ORDERED: propofoL 200 MG/20 ML VIAL IV ONE (14:25)
[2024-04-18] MEDS ORDERED: FENTANYL CITR 100 MCG/2 ML ONE (14:25)
[2024-04-18] MEDS ORDERED: LIDOCAINE 1% MPF 5 ML VIAL ONE (14:25)
--- NOTE | 2024-04-18 14:33 | P.PN ---
Date of Service: 04/18/24 Subjective: Doing better today C/O pain to right foot No further seizure like activity since admission Going down for debridement with general surgery today ROS: 10 point ROS as noted above, otherwise negative Physical exam GEN: Alert, oriented, NAD HEENT: Normal conjunctiva, sclera anicteric CV: Regular rate and rhythm, no edema Pulm: Nonlabored respirations on room air ABD: Soft, nontender, nondistended MSK: No joint tenderness, left bka, right TMA Integumentary: No rashes, mild erythema RLE Neuro: Normal speech, normal affect Vitals reviewed Assessment: Suspected severe sepsis secondary to right foot cellulitis with chronic wounds Seizureshistory of seizures Chronic diastolic ingestive heart failure Hypertension Hyperlipidemia PAD Tobacco use disorder Plan: Suspected severe sepsis secondary to right foot cellulitis with chronic wounds Blood cultures obtained in ED- no growth in 24 hours Wounds do not look to be grossly infected at this time Will have debridement of foot wound today Possible cellulitis to the right foot With blood cultures, continue IV antibiotics with vancomycin Seizureshistory of seizures Continue Dilantin, Keppra Loaded with Keppra in ED Will discuss case with neurology Check Dilantin, Keppra levels Dilantin level low, patient reports he is compliant with meds, will discuss with neuro Check EtOH/UDS-only+ for opiates Seizure precautions Chronic diastolic ingestive heart failure Hypertension Hyperlipidemia PAD Tobacco use disorder Continue home medications, counseled on need for tobacco cessation DVT PPX: Lovenox Code status: Full Discharge Plan: Home Plan to discharge in: 48 Hours Time Spent Managing Pts Care (In Minutes): 35
[2024-04-18] MEDS ORDERED: Phenylephrine HCl 10 MG/ML 1 ML VIAL ONE (14:54)
--- NOTE | 2024-04-18 15:07 | P.OP ---
Preoperative diagnosis: Multiple RIGHT foot wounds Postoperative diagnosis: Multiple RIGHT foot wounds Primary procedure: Debridement of Multiple RIGHT foot wounds Anesthesia: GETA Estimated blood loss: <2cc Specimen: Debridement Tissue Findings: Necrosis @ plantar foot wound ~ 3cm round to adipose, multiple dorsal wound Transferred to: Recovery Room Condition: Good
[2024-04-18] MEDS: VANCOMYCIN 500 MG/VIAL ONE (21:23)
[2024-04-18] MEDS: VANCOMYCIN 1 GM/VIAL ONE (21:33)
[2024-04-18] MEDS: NA CHLORIDE 0.9% 500 ML ONE (21:33)
--- NOTE | 2024-04-19 01:43 | OP ---
Date of Procedure: 04/18/2024 Surgeon: Faizan Lay MD, Preoperative Diagnosis: Multiple right foot wounds. Postoperative Diagnosis: Multiple right foot wounds. Procedures: Debridement of multiple right foot wounds. Anesthesia: General endotracheal. Estimated Blood Loss: 2 cc. Specimen Removed: Tissue. Findings: Necrotic plantar foot wound approximately 3 cm, round extending to the adipose tissue and multiple dorsal foot wounds, approximately 3. Condition: Transferred to recovery room in good condition. Procedure In Detail: After informed consent was obtained, the patient was brought to the operating r oom, prepped in the usual fashion. After adequate anesthesia was achieved, I debrided multiple wound s of the dorsal aspect of the right foot. There were 3, approximately 1 cm circumferential necrotic wounds, which were curetted clean down to good healthy granulation tissue. They were electrocauteriz ed at this point and a sterile dressing was placed over top. I then turned my attention to a plantar foot wound, which was approximately 3 cm in size and extending down to the subcutaneous fat. This w as debrided with a combination of sharp and curette-type dissection circumferentially around to remov e all the nonviable tissue. Culture sent for aerobic and anaerobic speciation. The area was copious ly irrigated. Hemostasis achieved with electrocautery. The wound was then packed with sterile dress ing. The patient tolerated the procedure without incident or complication, transferred back in good condition. All counts were ashley ect at the end of the case. ANNA/RENATO Voice ID: [id number] Report ID: [id number]
[2024-04-19 06:22] LABS: Absolute Basophils 0.1 K/uL (0-0.5); Absolute Lymphocytes (CBC) 1.5 K/uL (0.7-4.9); Absolute Monocytes 0.9 K/uL (0.1-1.3); Absolute Neutrophil 6.5 K/uL (1.8-8.0); Basophils % 0.9 % (0-1.3); Eosinophils % 0.5 % (0-4.4); Hemoglobin 9.4 g/dL (13.6-17.9); Lymphocytes % 16.8 % (15.3-44.8); MCH 33.4 pg (27.0-35.0); MCHC 34.7 g/dL (32.0-36.0); MCV 96.3 fL (80-100); MPV 8.9 fL (7.6-11.3); Monocytes % 10.1 % (3.3-12.3); Neutrophils % 71.7 % (41.7-73.7); Platelets 130 thou/uL (152-406); RBC Red Blood Cell Count 2.81 M/uL (4.33-5.43); Red Cell Distribution Width 15.6 % (12.1-15.2)
[2024-04-19 06:27] LABS: Anion Gap 9.7 mEq/L (5.0-15.0); Magnesium 2.2 mg/dL (1.6-2.4); Phosphorus 3.4 mg/dL (2.5-4.9); Potassium 3.7 mEq/L (3.5-5.1)
[2024-04-19] MEDS: POTASSIUM CL SA 10 MEQ TAB PO ONE (08:52)
--- NOTE | 2024-04-19 09:39 | P.PN ---
Date of Service: 04/19/24 Subjective: Doing better today C/O pain to right foot No further seizure like activity since admission S/P debridement yesterday to multiple right foot wounds ROS: 10 point ROS as noted above, otherwise negative Physical exam GEN: Alert, oriented, NAD HEENT: Normal conjunctiva, sclera anicteric CV: Regular rate and rhythm, no edema Pulm: Nonlabored respirations on room air ABD: Soft, nontender, nondistended MSK: No joint tenderness, left bka, right TMA Integumentary: No rashes, mild erythema RLE Neuro: Normal speech, normal affect Vitals reviewed Assessment: Suspected severe sepsis secondary to right foot cellulitis with chronic wounds Seizureshistory of seizures Chronic diastolic ingestive heart failure Hypertension Hyperlipidemia PAD Tobacco use disorder Plan: Suspected severe sepsis secondary to right foot cellulitis with chronic wounds Blood cultures obtained in ED- no growth in 24 hours Wounds do not look to be grossly infected at this time S/P debridement of chronic wounds with necrotic tissue present 04/18 Possible cellulitis to the right foot With blood cultures, continue IV antibiotics with vancomycin Seizureshistory of seizures Continue Dilantin, Keppra Loaded with Keppra in ED Discussed with neuro who significantly doubts compliance Dilantin level low, patient reports he is compliant with meds Counseled on importance of compliance with seizure meds Recommend repeat dilantin level ~one week after DC Check EtOH/UDS-only+ for opiates Seizure precautions Chronic diastolic ingestive heart failure Hypertension Hyperlipidemia PAD Tobacco use disorder Continue home medications, counseled on need for tobacco cessation DVT PPX: Lovenox Code status: Full Discharge Plan: Home Plan to discharge in: 24 hours Time Spent Managing Pts Care (In Minutes): 35
[2024-04-19] MEDS: VANCOMYCIN 1 GM in NA CHLORIDE 0.9% 250 ML IVPB SCH (10:00)
[2024-04-20 05:04] LABS: Anion Gap 9.7 mEq/L (5.0-15.0); Potassium 3.7 mEq/L (3.5-5.1)
[2024-04-20] MEDS: MORPHINE 2 MG/ML SYR IV PRN (10:31)
[2024-04-20] MEDS: POTASSIUM CL SA 10 MEQ TAB PO ONE (10:36)
[2024-04-20] MEDS: Meropenem 1,000 MG in NA CHLORIDE 0.9% 100 ML IV SCH (10:37)
--- NOTE | 2024-04-20 10:55 | P.PN ---
Date of Service: 04/20/24 Subjective: Doing better today C/O pain to right foot No further seizure like activity since admission ROS: 10 point ROS as noted above, otherwise negative Physical exam GEN: Alert, oriented, NAD HEENT: Normal conjunctiva, sclera anicteric CV: Regular rate and rhythm, no edema Pulm: Nonlabored respirations on room air ABD: Soft, nontender, nondistended MSK: No joint tenderness, left bka, right TMA Integumentary: No rashes, mild erythema RLE Neuro: Normal speech, normal affect Vitals reviewed Assessment: Suspected severe sepsis secondary to right foot cellulitis with chronic wounds Seizureshistory of seizures Chronic diastolic ingestive heart failure Hypertension Hyperlipidemia PAD Tobacco use disorder Plan: Suspected severe sepsis secondary to right foot cellulitis with chronic wounds Blood cultures obtained in ED- no growth in 24 hours S/P debridement of chronic wounds with necrotic tissue present 04/18 Possible cellulitis to the right foot Wound culture grew E. coli ESBL-switched to [place] 04/20 Infectious disease consult Seizureshistory of seizures Continue Dilantin, Keppra Loaded with Keppra in ED Discussed with neuro who significantly doubts compliance Dilantin level low, patient reports he is compliant with meds Counseled on importance of compliance with seizure meds Recommend repeat dilantin level ~one week after DC Check EtOH/UDS-only+ for opiates Seizure precautions Chronic diastolic ingestive heart failure Hypertension Hyperlipidemia PAD Tobacco use disorder Continue home medications, counseled on need for tobacco cessation DVT PPX: Lovenox Code status: Full Discharge Plan: Home Plan to discharge in: 48 hours Time Spent Managing Pts Care (In Minutes): 35
--- NOTE | 2024-04-20 12:20 | CON ---
Date of Consultation: 04/17/2024 Brief History Of Present Illness: Patient is a 58-year-old male known to me from previous admissions with a history of alcohol use disorder, tobacco use disorder, peripheral arterial disease, seizure d isorder, hypertension, hyperlipidemia, coronary artery disease, status post left BKA and right TMA am putation, who I debrided his TMA before in the past. He had significant improvement, had been seeing him in the clinic with significant improvement. However, he had some issues with his living situati on and was originally living in a home by himself in an apartment. However, he lost that recently. His wounds were significantly improved since he got kicked out of his apartment by his report. He gutiérrez s had difficult living situation and has had worsening of his wounds. He has ignored his wound care and done no wound care since that happened several weeks ago. He now comes in with a new wound on hi s TMA site as well as worsening of his other previous wounds to some degree. He also states that he believes he has been having worsening seizures. Past Medical History: Hypertension, CHF, diastolic dysfunction, COPD, CAD, PVD, left BKA and right T MA amputations, history of osteomyelitis, drug abuse, alcohol abuse, tobacco abuse, GERD. He was [facility] at [place] before, but recently evicted as described above. Allergies: NO KNOWN DRUG ALLERGIES. Home Medication: Include aspirin, atorvastatin, BuSpar, Plavix, Neurontin, Zoloft, methoc arbamol, Santyl, [place], Ventolin, Keppra, clindamycin. Social History: He still continues to smoke daily approximately a pack per day. Denies recreational drug use at this point. Family History: Significant for cancer, both father and mother. Review of Systems: Ten-point review of systems other than HPI, he admits to seizures and foot pain on his TMA site on th e right. Physical Examination: General: At the time of my examination, he is awake, alert, and oriented. Psychiatric: Appropriate. Conversive. HEENT: He is normocephalic. Sclerae icteric. Mucous membranes moist. Oropharynx clear. Neck: Supple without JVD. He does have an on the right side lesion concerning for an exo phytic type lesion consistent with a possible basal squamous cell skin cancer. He was instructed to follow up for this on multiple occasions and has not done so at this point. Abdomen: Soft. Extremities: Focused examination BKA on the left. His right TMA site has a new wound on the lateral aspect of the TMA site which has necrosis, breakdown, slough, drainage. His previous dorsal wounds are small, but have slough and fibrinous buildup, but not significant change in size with good granul ation tissue under the slough. Laboratory Data: He had laboratory exam which revealed a white blood count of 8.8, hemoglobin 10.4, hematocrit of 29.9, platelet count was 132, neutrophils 73%. Sodium 136, potassium 3.6, chloride 101 , carbon dioxide 22, BUN 14, creatinine 0.8, glucose 136. He had x-ray of the foot, which was offici ally read on 04/16/2024 as right foot. No fracture dislocation. Amputations noted. Soft tissue ulc eration of anterior foot. Assessment And Plan: This is a 58-year-old male known to me with chronic foot wound of the right TMA site. 1.IV fluid hydration. 2.Antibiotic coverage. 3.Local wound care. 4.I have explained risks, benefits, and alternatives of debridement of the wound, including but not limited to bleeding, infection, damage to surrounding tissues, need for further operative procedures, the importance of offloading as well has been reiterated and smoking cessation. Thank you for this interesting consult. ANNA/RENATO Voice ID: [id number] Report ID: [id number]
[2024-04-20] MEDS: HYDROCODONE/APAP 7.5/325 MG TAB PO PRN (20:10)
--- NOTE | 2024-04-20 21:56 | CON ---
History Of Present Illness: This is a 58-year-old male. I was consulted for ESBL infection of the r ight foot. The patient has significant past medical history of peripheral arterial disease and left BKA, right TMA, coronary artery disease, hypertension, hyperlipidemia, seizure disorder, tobacco and alcohol use disorder, coming in with increasing pain to his right foot to the emergency room where hi s white blood cell count was 12.9. The patient was admitted for further management and treatment of his right foot TMA wound. The patient is currently being treated with IV meropenem. He was also giv en vancomycin which has been discontinued on as the patient has history of ESBL E. coli infectio n as his culture grew ESBL E. coli. Past Medical History: Hypertension, COPD, congestive heart failure, peripheral arterial disease, cor onary artery disease, left BKA, right TMA, history of osteomyelitis, history of drug use, alcohol abu se, and tobacco abuse, gastroesophageal reflux disease. Family History: Mother and father, history of cancer. Social History: Tobacco, positive. Alcohol, positive. Review of Systems: A 10-point review was performed. Physical Examination: General: This is a 58-year-old male, sitting in easy chair, not in any acute cardiopulmonary distres s. Vital Signs: Temperature 98, pulse 94, respiration 20, blood pressure 121/56. HEENT: Unremarkable. Neck: Supple. Lungs: Basal crackles. Heart: S1, S2. Regular. Abdomen: Soft, nontender. Bowel sounds present. Extremities: Right foot in surgical dressing. Laboratory Data: Shows WBC 9.1, down from 12.9, hemoglobin 9.4, platelets are 130. Chemistry shows BUN of 11, creatinine 0.8. Urine drug screen shows opiate positive. Assessment And Plan: This is a 58-year-old male with significant history of COPD, peripheral arteria l disease, tobacco abuse and alcohol abuse and history of drug use, coming in with right foot TMA sit e infection with E. coli ESBL positive, currently being treated with meropenem. We will recommend to continue treatment total course of 42 days. Keep leg elevated when possible. Local wound care per surgical team. Prognosis is guarded. We will follow the patient as needed. NF/MODL Voice ID: [id number] Report ID: [id number]
[2024-04-21 06:53] LABS: Hematocrit 26.5 % (39.6-49.0); Hemoglobin 9.3 g/dL (13.6-17.9); MCH 33.6 pg (27.0-35.0); MCV 96.1 fL (80-100); MPV 8.2 fL (7.6-11.3); Platelets 155 thou/uL (152-406); RBC Red Blood Cell Count 2.76 M/uL (4.33-5.43); Red Cell Distribution Width 15.5 % (12.1-15.2)
[2024-04-21 07:04] LABS: Anion Gap 9.2 mEq/L (5.0-15.0); Potassium 4.2 mEq/L (3.5-5.1)
[2024-04-21] MEDS: Mupirocin NASAL 2 APPL/1 GM TUBE NAS SCH (09:10)
--- NOTE | 2024-04-21 09:42 | P.PN ---
Date of Service: 04/21/24 Subjective: Doing better today C/O pain to right foot No further seizure like activity since admission S/P debridement yesterday to multiple right foot wounds ROS: 10 point ROS as noted above, otherwise negative Physical exam GEN: Alert, oriented, NAD HEENT: Normal conjunctiva, sclera anicteric CV: Regular rate and rhythm, no edema Pulm: Nonlabored respirations on room air ABD: Soft, nontender, nondistended MSK: No joint tenderness, left bka, right TMA Integumentary: No rashes, mild erythema RLE Neuro: Normal speech, normal affect Vitals reviewed Assessment: Suspected severe sepsis secondary to right foot cellulitis with chronic wounds Seizureshistory of seizures Chronic diastolic ingestive heart failure Hypertension Hyperlipidemia PAD Tobacco use disorder Plan: Suspected severe sepsis secondary to right foot cellulitis with chronic wounds Blood cultures obtained in ED- no growth in 24 hours S/P debridement of chronic wounds with necrotic tissue present 04/18 Possible cellulitis to the right foot With blood cultures, continue IV antibiotics with vancomycin Seizureshistory of seizures Continue Dilantin, Keppra Loaded with Keppra in ED Discussed with neuro who significantly doubts compliance Dilantin level low, patient reports he is compliant with meds Counseled on importance of compliance with seizure meds Recommend repeat dilantin level ~one week after DC Check EtOH/UDS-only+ for opiates Seizure precautions Chronic diastolic ingestive heart failure Hypertension Hyperlipidemia PAD Tobacco use disorder Continue home medications, counseled on need for tobacco cessation DVT PPX: Lovenox Code status: Full Discharge Plan: Home Plan to discharge in: 24 hours Time Spent Managing Pts Care (In Minutes): 35
--- NOTE | 2024-04-21 09:44 | P.PN ---
Date of Service: 04/21/24 Subjective: Doing well today C/O pain to right foot No further seizure like activity since admission ROS: 10 point ROS as noted above, otherwise negative Physical exam GEN: Alert, oriented, NAD HEENT: Normal conjunctiva, sclera anicteric CV: Regular rate and rhythm, no edema Pulm: Nonlabored respirations on room air ABD: Soft, nontender, nondistended MSK: No joint tenderness, left bka, right TMA Integumentary: No rashes, mild erythema RLE Neuro: Normal speech, normal affect Vitals reviewed Assessment: Suspected severe sepsis secondary to right foot cellulitis with chronic wounds Seizureshistory of seizures Chronic diastolic ingestive heart failure Hypertension Hyperlipidemia PAD Tobacco use disorder Plan: Suspected severe sepsis secondary to right foot cellulitis with chronic wounds Blood cultures obtained in ED- no growth in 24 hours S/P debridement of chronic wounds with necrotic tissue present 04/18 Cellulitis to the right foot Wound culture grew E. coli ESBL-switched to Merrem 04/20 Infectious disease consult-recommend 6 weeks of IV antibiotics with meropenem PT consult Possible SNF Seizureshistory of seizures Continue Dilantin, Keppra Loaded with Keppra in ED Discussed with neuro who significantly doubts compliance Dilantin level low, patient reports he is compliant with meds Counseled on importance of compliance with seizure meds Recommend repeat dilantin level ~one week after DC Check EtOH/UDS-only+ for opiates Seizure precautions Chronic diastolic ingestive heart failure Hypertension Hyperlipidemia PAD Tobacco use disorder Continue home medications, counseled on need for tobacco cessation DVT PPX: Lovenox Code status: Full Discharge Plan: Home Plan to discharge in: 48 hours Time Spent Managing Pts Care (In Minutes): 35
--- NOTE | 2024-04-21 12:12 | EKG ---
Test Date: 2024-04-16 Test Time: 13:05:56 [employer]: [id number] MEASUREMENT RESULTS: Intervals: Rate: 104 RI: 130 QRSD: 76 QT: 340 QTc: 447 Orient: P: 6 RI: 130 QRS: 21 T: 60 INTERPRETIVE STATEMENTS: Sinus tachycardia Otherwise normal ECG Compared to ECG 03/31/2024 14:09:42 Sinus rhythm no longer present T-wave abnormality no longer present Prolonged QT interval no longer present Electronically Signed On 04-21-24 12:05:40 LOADER DEMOLDER by eJff Rehman
--- NOTE | 2024-04-21 17:58 | RAD REPORT ---
EXAMINATION: ONE VIEW CHEST XR CLINICAL INDICATION: Male, 58 years old.,PICC line placement TECHNIQUE: Frontal chest projection is submitted. Examination is limited by patient positioning and t echnique. COMPARISON: 03/31/2024 FINDINGS: Right arm PICC, with catheter tip at the superior caval atrial junction. The lungs are well inflated and clear. No pneumothorax or sizable effusion. The heart is normal in size. Mediastinal contours are unremarkable. IMPRESSION: Satisfactory right arm PICC placement. No acute intrathoracic abnormalities.
[2024-04-22] MEDS: ONDANSETRON 4 MG/2 ML VIAL IV PRN (02:35)
[2024-04-22 07:52] LABS: Hematocrit 27.5 % (39.6-49.0); Hemoglobin 9.2 g/dL (13.6-17.9); MCH 32.6 pg (27.0-35.0); MCHC 33.6 g/dL (32.0-36.0); MCV 97.2 fL (80-100); MPV 8.3 fL (7.6-11.3); Platelets 164 thou/uL (152-406); RBC Red Blood Cell Count 2.83 M/uL (4.33-5.43); Red Cell Distribution Width 15.6 % (12.1-15.2)
--- NOTE | 2024-04-22 09:06 | P.PN ---
Date of Service: 04/22/24 Subjective: Doing well today C/O pain to right foot No further seizure like activity since admission ROS: 10 point ROS as noted above, otherwise negative Physical exam GEN: Alert, oriented, NAD HEENT: Normal conjunctiva, sclera anicteric CV: Regular rate and rhythm, no edema Pulm: Nonlabored respirations on room air ABD: Soft, nontender, nondistended MSK: No joint tenderness, left bka, right TMA Integumentary: No rashes, mild erythema RLE Neuro: Normal speech, normal affect Vitals reviewed Assessment: Suspected severe sepsis secondary to right foot cellulitis with chronic wounds Seizureshistory of seizures Chronic diastolic ingestive heart failure Hypertension Hyperlipidemia PAD Tobacco use disorder Plan: Suspected severe sepsis secondary to right foot cellulitis with chronic wounds Blood cultures obtained in ED- no growth in 24 hours S/P debridement of chronic wounds with necrotic tissue present 04/18 Cellulitis to the right foot Wound culture grew E. coli ESBL-switched to Merrem 04/20 Infectious disease consult-recommend 6 weeks of IV antibiotics with meropenem PT consult Possible SNF-Awaiting options Seizureshistory of seizures Continue Dilantin, Keppra Loaded with Keppra in ED Discussed with neuro who significantly doubts compliance Dilantin level low, patient reports he is compliant with meds Counseled on importance of compliance with seizure meds Recommend repeat dilantin level ~one week after DC Check EtOH/UDS-only+ for opiates Seizure precautions Chronic diastolic ingestive heart failure Hypertension Hyperlipidemia PAD Tobacco use disorder Continue home medications, counseled on need for tobacco cessation DVT PPX: Lovenox Code status: Full Discharge Plan: Home Plan to discharge in: 48 hours Time Spent Managing Pts Care (In Minutes): 35
--- NOTE | 2024-04-22 13:56 | PN ---
Subjective: This patient lying in bed. No new acute event. Chart reviewed. Objective: Vital Signs: Temperature 98, pulse 72, respirations 16, blood pressure 111/52. Lungs: Basal crackles. Heart: S1, S2. Regular. Abdomen: Soft, nontender. Bowel sounds present. Extremities: Right foot wound noted. Laboratory Data: Shows WBC 6.1, hemoglobin 9.0, platelets are 164. Chemistry shows BUN of 15, creat inine 0.8. Right foot wound, E coli ESBL. Patient is currently getting meropenem. Assessment And Plan: Right foot ulceration, status post debridement. Continue antibiotic for 42 day s. Patient with history of alcohol and tobacco abuse and drug abuse. Recurrent right foot TMA infec tion, most likely secondary to noncompliance, peripheral arterial disease. Continue supportive care and wound care. Surgical team will follow the patient as needed. NF/MODL Voice ID: [id number] Report ID: [id number]
[2024-04-23 06:24] LABS: Hematocrit 27.6 % (39.6-49.0); Hemoglobin 9.4 g/dL (13.6-17.9); MCH 32.8 pg (27.0-35.0); MCHC 34.1 g/dL (32.0-36.0); MCV 96.1 fL (80-100); MPV 7.8 fL (7.6-11.3); Platelets 190 thou/uL (152-406); RBC Red Blood Cell Count 2.87 M/uL (4.33-5.43); Red Cell Distribution Width 15.7 % (12.1-15.2)
[2024-04-23 06:41] LABS: Anion Gap 7.7 mEq/L (5.0-15.0); Potassium 3.7 mEq/L (3.5-5.1)
--- NOTE | 2024-04-23 13:21 | P.PN ---
Date of Service: 04/23/24 Subjective: Still on IV antibiotics No acute events overnight No further seizure activity Pain well-controlled ROS: 10 point ROS as noted above, otherwise negative Physical exam GEN: Alert, oriented, NAD HEENT: Normal conjunctiva, sclera anicteric CV: Regular rate and rhythm, no edema Pulm: Nonlabored respirations on room air ABD: Soft, nontender, nondistended MSK: No joint tenderness, left bka, right TMA Integumentary: No rashes, mild erythema RLE Neuro: Normal speech, normal affect Vitals reviewed Assessment: Suspected severe sepsis secondary to right foot cellulitis with chronic wounds Seizureshistory of seizures Chronic diastolic ingestive heart failure Hypertension Hyperlipidemia PAD Tobacco use disorder Plan: Suspected severe sepsis secondary to right foot cellulitis with chronic wounds Blood cultures obtained in ED- no growth in 24 hours S/P debridement of chronic wounds with necrotic tissue present 04/18 Cellulitis to the right foot Wound culture grew E. coli ESBL-switched to Merrem 04/20 Infectious disease consult-recommend 6 weeks of IV antibiotics with meropenem which would be through 06/01/2024 PT consult Possible SNF-Awaiting options Seizureshistory of seizures Continue Dilantin, Keppra Loaded with Keppra in ED Discussed with neuro who significantly doubts compliance Dilantin level low, patient reports he is compliant with meds Counseled on importance of compliance with seizure meds Recommend repeat dilantin level ~one week after DC Check EtOH/UDS-only+ for opiates Seizure precautions Chronic diastolic ingestive heart failure Hypertension Hyperlipidemia PAD Tobacco use disorder Continue home medications, counseled on need for tobacco cessation DVT PPX: Lovenox Code status: Full Discharge Plan: Home Plan to discharge in: 48 hours Time Spent Managing Pts Care (In Minutes): 35
--- NOTE | 2024-04-23 14:38 | PN ---
Subjective: Patient sitting in wheelchair, not in any acute distress. Denies any headache, nausea, vomiting, chest pain, abdominal pain, constipation, or diarrhea. Objective: Vital Signs: Temperature 98, pulse 70, respirations 16, blood pressure 90/46. Lungs: Basal crackles. Heart: S1, S2. Regular. Abdomen: Soft, nontender. Bowel sounds present. Extremities: No edema. Laboratory Data: Shows WBC 5, hemoglobin 9.4, platelets are 190. Chemistry shows BUN of 19, creatin ine 0.9. Micro data shows E coli ESBL in the right foot wound. 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 Continue an tibiotics. Supportive care. Monitor signs of infection with WBC and fever trends. Anemia of chroni c disease. Peripheral vascular disease. Tobacco and alcohol abuse history. History of drug abuse. We will follow the patient as needed. NF/MODL Voice ID: [id number] Report ID: [id number]
--- NOTE | 2024-04-24 08:58 | P.PN ---
Date of Service: 04/24/24 Subjective: Still on IV antibiotics No acute events overnight No further seizure activity Pain well-controlled ROS: 10 point ROS as noted above, otherwise negative Physical exam GEN: Alert, oriented, NAD HEENT: Normal conjunctiva, sclera anicteric CV: Regular rate and rhythm, no edema Pulm: Nonlabored respirations on room air ABD: Soft, nontender, nondistended MSK: No joint tenderness, left bka, right TMA Integumentary: No rashes, mild erythema RLE Neuro: Normal speech, normal affect Vitals reviewed Assessment: Suspected severe sepsis secondary to right foot cellulitis with chronic wounds Seizureshistory of seizures Chronic diastolic ingestive heart failure Hypertension Hyperlipidemia PAD Tobacco use disorder Plan: Suspected severe sepsis secondary to right foot cellulitis with chronic wounds Blood cultures obtained in ED- no growth in 24 hours S/P debridement of chronic wounds with necrotic tissue present 04/18 Cellulitis to the right foot Wound culture grew E. coli ESBL-switched to Merrem 04/20 Infectious disease consult-recommend 6 weeks of IV antibiotics with meropenem which would be through 06/01/2024 PT consult Possible SNF-Awaiting options Also discussing low cost apartments with case management Seizureshistory of seizures Continue Dilantin, Keppra Loaded with Keppra in ED Discussed with neuro who significantly doubts compliance Dilantin level low, patient reports he is compliant with meds Counseled on importance of compliance with seizure meds Recommend repeat dilantin level ~one week after DC Check EtOH/UDS-only+ for opiates Seizure precautions Chronic diastolic ingestive heart failure Hypertension Hyperlipidemia PAD Tobacco use disorder Continue home medications, counseled on need for tobacco cessation DVT PPX: Lovenox Code status: Full Discharge Plan: Home Plan to discharge in: 48 hours Time Spent Managing Pts Care (In Minutes): 35
--- NOTE | 2024-04-25 12:29 | PN ---
Subjective: The patient is lying in bed, somnolent, not in any acute distress. Objective: Vital signs: Reviewed. Lungs: Basal crackles. Heart: S1, S2. Regular. Abdomen: Soft, nontender. Bowel sounds present. Extremities: No edema. Foot wound noted. Laboratory Data: Reviewed. Assessment And Plan: Right foot cellulitis with possible osteo. Continue antibiotic for total of 42 days, seizure disorder, history of tobacco and alcohol abuse, anemia of chronic disease. We will fo llow the patient as needed. NF/MODL Voice ID: [id number] Report ID: [id number]
--- NOTE | 2024-04-25 14:15 | P.PN ---
Date of Service: 04/25/24 Subjective: Sleeping but awakens easily tolerating Iv antibiotics no new complaints ROS: 10 point ROS as noted above, otherwise negative Physical exam GEN: Alert and oriented x3, NAD HEENT: Normal conjunctiva, sclera anicteric CV: RRR, S1 S2 present, no edema Pulm: Nonlabored respirations, symmetrical chest wall movement on room air ABD: Soft and benign on palpation, ND/NT MSK: No joint tenderness, left bka, right TMA Integumentary: No rashes, mild erythema RLE Neuro: Normal speech, normal affect Vitals reviewed Assessment: Suspected severe sepsis secondary to right foot cellulitis with chronic wounds Seizureshistory of seizures Chronic diastolic ingestive heart failure Hypertension Hyperlipidemia PAD Tobacco use disorder Plan: Suspected severe sepsis secondary to right foot cellulitis with chronic wounds Blood cultures obtained in ED- no growth in 24 hours S/P debridement of chronic wounds with necrotic tissue present 04/18 Cellulitis to the right foot Wound culture grew E. coli ESBL-switched to Merrem 04/20 Infectious disease consult-recommend 6 weeks of IV antibiotics with meropenem which would be through 06/01/2024 PT consult Possible SNF-Awaiting options Also discussing low cost apartments with case management Seizureshistory of seizures Continue Dilantin, Keppra Loaded with Keppra in ED Discussed with neuro who significantly doubts compliance Dilantin level low, patient reports he is compliant with meds Counseled on importance of compliance with seizure meds Recommend repeat dilantin level ~one week after DC Check EtOH/UDS-only+ for opiates Seizure precautions Chronic diastolic ingestive heart failure Hypertension Hyperlipidemia PAD Tobacco use disorder Continue home medications, counseled on need for tobacco cessation DVT PPX: Lovenox Code status: Full Discharge Plan: Home vs [facility] Plan to discharge in: 48 hours
--- NOTE | 2024-04-26 07:53 | P.PN ---
Date of Service: 04/26/24 Subjective: Awake, sitting in his wheel chair c/o pain to right lower extremity Awaiting placement for continued IV antibiotics ROS: 10 point ROS as noted above, otherwise negative Physical exam GEN: Awake, alert, and oriented x3, NAD HEENT: Normal conjunctiva, sclera anicteric CV: Regular rate and rhythm, S1 S2 present, no edema Pulm: Nonlabored respirations, symmetrical chest wall movement on room air ABD: Soft and benign on palpation, ND/NT MSK: No joint tenderness, left bka, right TMA, dressing CDI Integumentary: No rashes, mild erythema RLE Neuro: Normal speech, normal affect Vitals reviewed Assessment: Suspected severe sepsis secondary to right foot cellulitis with chronic wounds Seizureshistory of seizures Chronic diastolic ingestive heart failure Hypertension Hyperlipidemia PAD Tobacco use disorder Plan: Suspected severe sepsis secondary to right foot cellulitis with chronic wounds Blood cultures obtained in ED- no growth in 24 hours S/P debridement of chronic wounds with necrotic tissue present 04/18 Wound culture grew E. coli ESBL-switched to Merrem 04/20 Infectious disease consult-recommend 6 weeks of IV antibiotics with meropenem which would be through 06/01/2024 PT consult Possible SNF-Awaiting options Also discussing low cost apartments with case management Seizureshistory of seizures Continue Dilantin, Keppra Loaded with Keppra in ED Discussed with neuro who significantly doubts compliance Dilantin level low, patient reports he is compliant with meds Counseled on importance of compliance with seizure meds Recommend repeat dilantin level ~one week after DC Check EtOH/UDS-only+ for opiates Seizure precautions Chronic diastolic ingestive heart failure Hypertension Hyperlipidemia PAD Tobacco use disorder Continue home medications, counseled on need for tobacco cessation DVT PPX: Lovenox Code status: Full Discharge Plan: Home vs [facility] Plan to discharge in: 48 hours
[2024-04-26] MEDS: POTASSIUM 25 MEQ EFFERV TAB PO ONE (13:58)
[2024-04-26] MEDS: HYDROCODONE/APAP 10/325 TAB PO PRN (17:00)
[2024-04-27 05:48] LABS: Absolute Basophils 0.1 K/uL (0-0.5); Absolute Eosinophils 0.3 K/uL (0-0.5); Absolute Lymphocytes (CBC) 2.1 K/uL (0.7-4.9); Absolute Monocytes 0.5 K/uL (0.1-1.3); Absolute Neutrophil 3.8 K/uL (1.8-8.0); Basophils % 0.9 % (0-1.3); Hematocrit 30.4 % (39.6-49.0); Lymphocytes % 31.1 % (15.3-44.8); MCHC 32.7 g/dL (32.0-36.0); MCV 97.7 fL (80-100); Monocytes % 7.6 % (3.3-12.3); Neutrophils % 55.4 % (41.7-73.7); Platelets 269 thou/uL (152-406); RBC Red Blood Cell Count 3.12 M/uL (4.33-5.43); Red Cell Distribution Width 15.7 % (12.1-15.2)
[2024-04-27 06:02] LABS: Magnesium 2.2 mg/dL (1.6-2.4); Phosphorus 4.7 mg/dL (2.5-4.9)
[2024-04-27] MEDS: COLLAGENASE 30 GM OINTMENT TOP SCH (15:12)
--- NOTE | 2024-04-27 15:32 | P.PN ---
Date of Service: 04/27/24 Subjective: no new complaints Awaiting placement ROS: 10 point ROS as noted above, otherwise negative Physical exam GEN: AAO x3, NAD HEENT: Normal conjunctiva, sclera anicteric CV: RRR, S1 S2 present, no edema Pulm: Nonlabored respirations, Clear BBS, on room air ABD: Soft and benign on palpation, ND/NT MSK: No joint tenderness, left bka, right TMA, dressing CDI Integumentary: No rashes, mild erythema RLE Neuro: Normal speech, normal affect Vitals reviewed Assessment: Suspected severe sepsis secondary to right foot cellulitis with chronic wounds Seizureshistory of seizures Chronic diastolic ingestive heart failure Hypertension Hyperlipidemia PAD Tobacco use disorder Plan: Suspected severe sepsis secondary to right foot cellulitis with chronic wounds Blood cultures obtained in ED- no growth in 24 hours S/P debridement of chronic wounds with necrotic tissue present 04/18 Wound culture grew E. coli ESBL-switched to Merrem 04/20 Infectious disease consult-recommend 6 weeks of IV antibiotics with meropenem which would be through 06/01/2024 PT consult Possible SNF-Awaiting options Also discussing low cost apartments with case management Seizureshistory of seizures Continue Dilantin, Keppra Loaded with Keppra in ED Discussed with neuro who significantly doubts compliance Dilantin level low, patient reports he is compliant with meds Counseled on importance of compliance with seizure meds Recommend repeat dilantin level ~one week after DC Check EtOH/UDS-only+ for opiates Seizure precautions Chronic diastolic ingestive heart failure Hypertension Hyperlipidemia PAD Tobacco use disorder Continue home medications, counseled on need for tobacco cessation DVT PPX: Lovenox Code status: Full Discharge Plan: Home vs [facility] Plan to discharge in: 48 hours
[2024-04-28 06:03] LABS: Absolute Basophils 0.1 K/uL (0-0.5); Absolute Eosinophils 0.3 K/uL (0-0.5); Absolute Lymphocytes (CBC) 2.2 K/uL (0.7-4.9); Absolute Monocytes 0.6 K/uL (0.1-1.3); Absolute Neutrophil 3.8 K/uL (1.8-8.0); Basophils % 0.9 % (0-1.3); Eosinophils % 4.3 % (0-4.4); Hematocrit 30.9 % (39.6-49.0); Hemoglobin 10.3 g/dL (13.6-17.9); Lymphocytes % 31.8 % (15.3-44.8); MCH 32.4 pg (27.0-35.0); MCHC 33.3 g/dL (32.0-36.0); MCV 97.2 fL (80-100); MPV 7.8 fL (7.6-11.3); Monocytes % 8.3 % (3.3-12.3); Neutrophils % 54.7 % (41.7-73.7); Nucleated Red Blood Cells % 0.1 % (0-0); Platelets 304 thou/uL (152-406); RBC Red Blood Cell Count 3.18 M/uL (4.33-5.43); Red Cell Distribution Width 15.9 % (12.1-15.2)
[2024-04-28 06:19] LABS: Anion Gap 7.7 mEq/L (5.0-15.0); Magnesium 2.4 mg/dL (1.6-2.4); Phosphorus 3.9 mg/dL (2.5-4.9); Potassium 4.7 mEq/L (3.5-5.1)
[2024-04-28 12:24] VITALS: O2SAT 99
[2024-04-28] MEDS ORDERED: COLLAGENASE 30 GM OINTMENT TOP SCH (14:00)
--- NOTE | 2024-04-28 18:42 | PN ---
Subjective: The patient sitting in wheelchair, not in any acute distress. Objective: Vital Signs: Temperature 98, pulse 60, respiration 12, blood pressure 135/52. Lungs: Basal crackles. Heart: S1, S2, regular. Abdomen: Soft, nontender. Bowel sounds present. Extremities: No edema. Wound noted. Lab Data: WBC 7, hemoglobin 10.3, platelets 304. BUN of 19, creatinine 0.6. Current antibiotics include meropenem. Wound care per surgical team. Assessment And Plan: Right foot TMA osteomyelitis with ulceration, status post debridement, E coli E SBL infection. Continue meropenem total of 42 days. Anemia of chronic disease. Continue supportive care. Keep legs elevated when possible. History of seizure disorder, hyperlipidemia, peripheral [place] disease, tobacco abuse, alcohol abuse. We will follow the patient as needed. NF/MODL Voice ID: [id number] Report ID: [id number]
--- NOTE | 2024-04-28 21:29 | P.PN ---
Date of Service: 04/28/24 Subjective: Awake and able to perform ADLs no new complaints Awaiting placement ROS: 10 point ROS as noted above, otherwise negative Physical exam GEN: Alert and oriented x3, NAD HEENT: Normal conjunctiva, sclera anicteric CV: Regular rate and rhythm, S1 S2 present, no edema Pulm: symetrical chest wall movement, Clear BBS, on room air ABD: Soft on palpation, ND/NT, normal active Bowel sounds MSK: No joint tenderness, left bka, right TMA, dressing CDI Integumentary: No rashes, mild erythema RLE Neuro: Normal speech, normal affect Vitals reviewed Assessment: Suspected severe sepsis secondary to right foot cellulitis with chronic wounds Seizureshistory of seizures Chronic diastolic ingestive heart failure Hypertension Hyperlipidemia PAD Tobacco use disorder Plan: Suspected severe sepsis secondary to right foot cellulitis with chronic wounds Blood cultures obtained in ED- no growth in 24 hours S/P debridement of chronic wounds with necrotic tissue present 04/18 Wound culture grew E. coli ESBL-switched to Merrem 04/20 Infectious disease consult-recommend 6 weeks of IV antibiotics with meropenem which would be through 06/01/2024 PT consult Possible SNF-Awaiting [facility] Also discussing low cost apartments with case management Seizureshistory of seizures-Stable Continue Dilantin, Keppra Loaded with Keppra in ED Discussed with neuro who significantly doubts compliance Dilantin level low, patient reports he is compliant with meds Counseled on importance of compliance with seizure meds Recommend repeat dilantin level ~one week after DC Check EtOH/UDS-only+ for opiates Seizure precautions Chronic diastolic ingestive heart failure Hypertension Hyperlipidemia PAD Tobacco use disorder Continue home medications, counseled on need for tobacco cessation DVT PPX: Lovenox Code status: Full Discharge Plan: Home vs [facility] Plan to discharge in: 48 hours
[2024-04-29 05:17] LABS: Anion Gap 7.7 mEq/L (5.0-15.0); Magnesium 2.5 mg/dL (1.6-2.4); Phosphorus 4.9 mg/dL (2.5-4.9); Potassium 4.7 mEq/L (3.5-5.1)
[2024-04-29 07:35] LABS: Absolute Eosinophils 0.3 K/uL (0-0.5); Absolute Lymphocytes (CBC) 2.4 K/uL (0.7-4.9); Absolute Monocytes 0.6 K/uL (0.1-1.3); Absolute Neutrophil 3.9 K/uL (1.8-8.0); Basophils % 0.4 % (0-1.3); Eosinophils % 3.6 % (0-4.4); Hematocrit 32.3 % (39.6-49.0); Hemoglobin 10.5 g/dL (13.6-17.9); Lymphocytes % 33.2 % (15.3-44.8); MCH 31.7 pg (27.0-35.0); MCHC 32.4 g/dL (32.0-36.0); MCV 97.9 fL (80-100); MPV 7.8 fL (7.6-11.3); Monocytes % 8.7 % (3.3-12.3); Neutrophils % 54.1 % (41.7-73.7); Nucleated Red Blood Cells % 0.1 % (0-0); Platelets 313 thou/uL (152-406); Red Cell Distribution Width 15.5 % (12.1-15.2)
--- NOTE | 2024-04-29 11:09 | PN ---
Subjective: Patient sitting in bed, not in any acute distress. Denies any problems other than pain in his legs. Objective: Vital Signs: Temperature 97, pulse 68, respirations 18, blood pressure 150/65. Lungs: Basal crackles. Heart: S1, S2. Regular. Abdomen: Soft, nontender. Bowel sounds present. Extremities: No edema. Wound noted. Laboratory Data: Shows WBC 7, hemoglobin 10, platelets are 313. Chemistry shows BUN of 20, creatini ne 0.7. Micro data: No new cultures are available. Assessment And Plan: Right foot TMA with ESBL wound infection and osteomyelitis. Continue meropenem total of 42 days. Peripheral arterial disease. History of tobacco use and alcohol use and drug use . History of seizure disorder. Continue supportive care and wound care per surgical team. We will follow the patient as needed. NF/MODL Voice ID: [id number] Report ID: [id number]
--- NOTE | 2024-04-29 13:48 | P.PN ---
Date of Service: 04/29/24 Subjective: In his wheelchair in the hallway Calm and cooperative no new complaints [facility] remains pending ROS: 10 point ROS as noted above, otherwise negative Physical exam GEN: Alert and oriented x3, NAD HEENT: Normal conjunctiva, sclera anicteric CV: RRR, S1 S2 present, no edema Pulm: nonlaborded breathing, Clear BBS, on room air ABD: ND/NT, normal active Bowel sounds MSK: No joint tenderness, left bka, right TMA, dressing CDI Integumentary: No rashes, mild erythema RLE Neuro: Normal speech, normal affect Vitals reviewed Assessment: Suspected severe sepsis secondary to right foot cellulitis with chronic wounds Seizureshistory of seizures Chronic diastolic ingestive heart failure Hypertension Hyperlipidemia PAD Tobacco use disorder Plan: Suspected severe sepsis secondary to right foot cellulitis with chronic wounds Blood cultures obtained in ED- no growth in 24 hours S/P debridement of chronic wounds with necrotic tissue present 04/18 Wound culture grew E. coli ESBL-switched to Merrem 04/20 Infectious disease consult-recommend 6 weeks of IV antibiotics with meropenem which would be through 06/01/2024 PT consult Possible SNF-[facility]waiting [facility] Also discussing low cost apartments with case management Seizureshistory of seizures-Stable Continue Dilantin, Keppra Loaded with Keppra in ED Discussed with neuro who significantly doubts compliance Dilantin level low, patient reports he is compliant with meds Counseled on importance of compliance with seizure meds Recommend repeat dilantin level ~one week after DC Check EtOH/UDS-only+ for opiates Seizure precautions Chronic diastolic ingestive heart failure Hypertension Hyperlipidemia PAD Tobacco use disorder Continue home medications, counseled on need for tobacco cessation DVT PPX: Lovenox Code status: Full Discharge Plan: Home vs [facility] Plan to discharge in: 48 hours
[2024-04-29] MEDS: MORPHINE 2 MG/ML SYR IV PRN (21:12)
[2024-04-29] MEDS: WATER FOR INJ,STERILE 10 ML ONE (21:18)
[2024-04-29] MEDS: ALTEPLASE 2 MG/VIAL IV SCH (21:18)
[2024-04-30 04:26] LABS: Absolute Basophils 0.1 K/uL (0-0.5); Absolute Eosinophils 0.3 K/uL (0-0.5); Absolute Lymphocytes (CBC) 2.6 K/uL (0.7-4.9); Absolute Monocytes 0.6 K/uL (0.1-1.3); Absolute Neutrophil 3.7 K/uL (1.8-8.0); Basophils % 1.4 % (0-1.3); Eosinophils % 3.9 % (0-4.4); Hematocrit 31.4 % (39.6-49.0); Hemoglobin 10.5 g/dL (13.6-17.9); Lymphocytes % 35.8 % (15.3-44.8); MCH 32.7 pg (27.0-35.0); MCHC 33.6 g/dL (32.0-36.0); MCV 97.4 fL (80-100); MPV 7.4 fL (7.6-11.3); Monocytes % 8.1 % (3.3-12.3); Neutrophils % 50.8 % (41.7-73.7); Platelets 367 thou/uL (152-406); RBC Red Blood Cell Count 3.22 M/uL (4.33-5.43); Red Cell Distribution Width 15.9 % (12.1-15.2)
[2024-04-30 04:38] LABS: Anion Gap 6.8 mEq/L (5.0-15.0); Magnesium 2.7 mg/dL (1.6-2.4); Potassium 4.8 mEq/L (3.5-5.1)
--- NOTE | 2024-04-30 13:20 | P.PN ---
Date of Service: 04/30/24 Subjective: Calm and cooperative no new complaints [facility] remains pending ROS: 10 point ROS as noted above, otherwise negative Physical exam GEN: Alert and oriented x3, NAD HEENT: Normal conjunctiva, sclera anicteric CV: RRR, S1 S2 present, no edema Pulm: nonlaborded breathing, Clear BBS, on room air ABD: ND/NT, normal active Bowel sounds MSK: No joint tenderness, left bka, right TMA, dressing CDI Integumentary: No rashes, mild erythema RLE Neuro: Normal speech, normal affect Vitals reviewed Assessment: Suspected severe sepsis secondary to right foot cellulitis with chronic wounds Seizureshistory of seizures Chronic diastolic ingestive heart failure Hypertension Hyperlipidemia PAD Tobacco use disorder Plan: Suspected severe sepsis secondary to right foot cellulitis with chronic wounds Blood cultures obtained in ED- no growth in 24 hours S/P debridement of chronic wounds with necrotic tissue present 04/18 Wound culture grew E. coli ESBL-switched to Merrem 04/20 Infectious disease consult-recommend 6 weeks of IV antibiotics with meropenem which would be through 06/01/2024 PT consult Possible SNF-[facility]wait[facility] Also discussing low cost apartments with case management Seizureshistory of seizures-Stable Continue Dilantin, Keppra Loaded with Keppra in ED Discussed with neuro who significantly doubts compliance Dilantin level low, patient reports he is compliant with meds Counseled on importance of compliance with seizure meds Recommend repeat dilantin level ~one week after DC Check EtOH/UDS-only+ for opiates Seizure precautions Chronic diastolic ingestive heart failure Hypertension Hyperlipidemia PAD Tobacco use disorder Continue home medications, counseled on need for tobacco cessation DVT PPX: Lovenox Code status: Full Discharge Plan: Home vs [facility] Plan to discharge in: 48 hours
[2024-05-01 05:50] LABS: Absolute Basophils 0.1 K/uL (0-0.5); Absolute Eosinophils 0.4 K/uL (0-0.5); Absolute Lymphocytes (CBC) 2.9 K/uL (0.7-4.9); Absolute Monocytes 0.7 K/uL (0.1-1.3); Absolute Neutrophil 3.8 K/uL (1.8-8.0); Basophils % 1.3 % (0-1.3); Eosinophils % 5.2 % (0-4.4); Hemoglobin 10.3 g/dL (13.6-17.9); MCH 32.6 pg (27.0-35.0); MCHC 33.3 g/dL (32.0-36.0); MCV 97.8 fL (80-100); MPV 7.6 fL (7.6-11.3); Monocytes % 8.2 % (3.3-12.3); Neutrophils % 48.3 % (41.7-73.7); Platelets 347 thou/uL (152-406); RBC Red Blood Cell Count 3.17 M/uL (4.33-5.43); Red Cell Distribution Width 15.9 % (12.1-15.2)
[2024-05-01 06:10] LABS: Anion Gap 8.4 mEq/L (5.0-15.0); Magnesium 2.6 mg/dL (1.6-2.4); Phenytoin (Dilantin) Level 4.6 mcg/mL (10.0-20.0); Potassium 4.4 mEq/L (3.5-5.1)
--- NOTE | 2024-05-01 08:02 | PN ---
Subjective: The patient sitting in wheelchair, not in any acute distress. Objective: Vital signs: Reviewed. Lungs: Basal crackles. Heart: S1, S2, regular. Abdomen: Soft, nontender. Bowel sounds present. Extremities: No edema. A foot wound noted. Labs: Reviewed. Assessment And Plan: Cellulitis and foot ulcer, status post TMA to the right foot. Peripheral arter ial disease. Continue antibiotic and supportive care for 6 weeks, total 42 days. We will follow the patient as needed. NF/MODL Voice ID: [id number] Report ID: [id number]
--- NOTE | 2024-05-01 08:56 | P.PN ---
Date of Service: 05/01/24 Subjective: Calm and cooperative no new complaints [facility] remains pending ROS: 10 point ROS as noted above, otherwise negative Physical exam GEN: Alert and oriented x3, NAD HEENT: Normal conjunctiva, sclera anicteric CV: RRR, S1 S2 present, no edema Pulm: nonlaborded breathing, Clear BBS, on room air ABD: ND/NT, normal active Bowel sounds MSK: No joint tenderness, left bka, right TMA, dressing CDI Integumentary: No rashes, mild erythema RLE Neuro: Normal speech, normal affect Vitals reviewed Assessment: Suspected severe sepsis secondary to right foot cellulitis with chronic wounds Seizureshistory of seizures Chronic diastolic ingestive heart failure Hypertension Hyperlipidemia PAD Tobacco use disorder Plan: Suspected severe sepsis secondary to right foot cellulitis with chronic wounds Blood cultures obtained in ED- no growth in 24 hours S/P debridement of chronic wounds with necrotic tissue present 04/18 Wound culture grew E. coli ESBL-switched to Merrem 04/20 Infectious disease consult-recommend 6 weeks of IV antibiotics with meropenem which would be through 06/01/2024 PT consult Possible SNF-Awaiting [facility] auth-still pending Also discussing low cost apartments with case management Seizureshistory of seizures-Stable Continue Dilantin, Keppra Loaded with Keppra in ED Discussed with neuro who significantly doubts compliance Dilantin level low, patient reports he is compliant with meds Dilantin level repeated, up to 4.6 Keppra level was therapeutic Counseled on importance of compliance with seizure meds Recommend repeat dilantin level ~one week after DC Seizure precautions Chronic diastolic ingestive heart failure Hypertension Hyperlipidemia PAD Tobacco use disorder Continue home medications, counseled on need for tobacco cessation DVT PPX: Lovenox Code status: Full Discharge Plan: Home vs [facility] Plan to discharge in: 48 hours
--- NOTE | 2024-05-01 14:24 | P.DS ---
Admission Date: 04/16/24 Discharge Date: 05/01/24 Disposition: TRANSFER TO SNF - REHAB Discharge Condition: GOOD Reason for Admission: Sepsis, seizure Brief History of Present Illness: 58-year-old male with history of alcohol use disorder, tobacco use disorder, PAD, seizure disorder, hypertension, hyperlipidemia, CAD, previous left BKA, right TMA amputation presents emergency department chief complaint of foot pain and seizure. He was having increasing pain to his right foot and foot reason came to the emergency department, he was evaluated in the emergency department and found to have an elevated white blood cell count of 12.9, initial lactic acid of 2.3 fever to 101. Patient was seen in the ED, complains of pain to that right foot, will be admitted for further evaluation and management of suspected cellulitis/sepsis of the right foot with seizures. Hospital Course: Assessment: Suspected severe sepsis secondary to right foot cellulitis with chronic wounds Seizureshistory of seizures Chronic diastolic ingestive heart failure Hypertension Hyperlipidemia PAD Tobacco use disorder Patient was admitted to the hospital for seizure, concern for infection of the right foot. He underwent debridement on 04/18/2024, wound culture from that surgery grew E. coli ESBL. Patient was seen by infectious disease recommended total of 6 weeks of IV antibiotics with meropenem. Best option for patient to receive antibiotics ended up being long term facility, patient was ultimately accepted to [facility] in [facility]. In regards to his seizures his Dilantin level was checked on 04/16 and found to be 1, he was given Dilantin through his hospitalization and his level was rechecked on 05/01 and increased to 4.6. Recommend he continue the Dilantin 300 mg at bedtime as well as the Keppra 1500 mg by mouth twice daily. He had no further seizure activity during hospitalization. His level of compliance with a Dilantin outpatient is unclear, he states that he is totally compliant and he does have the prescription bottles with him but difficult to explain the very low levels of Dilantin. UDS/EtOH negative. Continue home medications Patient would benefit with tobacco cessation Will need to continue to receive IV antibiotics through 06/01/2024 with IV meropenem. Patient stable for transfer to SNF at this time Vital Signs/Physical Exam: Temp Pulse Resp BP Pulse Ox 97.9 F 83 18 103/54 L 99 05/01/24 12:00 05/01/24 12:00 05/01/24 12:00 05/01/24 12:00 05/01/24 12:00 General: Alert, In no apparent distress, Oriented x3 HEENT: Atraumatic, PERRLA Neck: Supple, JVD not distended Respiratory: Clear to auscultation bilaterally, Normal air movement Cardiovascular: Regular rate/rhythm, Normal S1 S2 Gastrointestinal: Normal bowel sounds, No tenderness Musculoskeletal: Other (Left BKA, right TMA, dressing in place) Integumentary: No rashes Neurological: Normal speech, Normal tone, Normal affect Laboratory Data at Discharge: WBC 8.00 thou/uL (4.3-10.9) 05/01/24 05:29 Hgb 10.3 g/dL (13.6-17.9) L 05/01/24 05:29 Hct 31.0 % (39.6-49.0) L 05/01/24 05:29 Plt Count 347 thou/uL (152-406) 05/01/24 05:29 PT 13.6 SECONDS (9.4-12.5) H 04/16/24 12:40 INR 1.22 04/16/24 12:40 APTT 40.8 SECONDS (24.3-36.9) H 04/16/24 12:40 Sodium 135 mEq/L (136-145) L 05/01/24 05:29 Potassium 4.4 mEq/L (3.5-5.1) 05/01/24 05:29 BUN 16 mg/dL (7-18) 05/01/24 05:29 Creatinine 0.77 mg/dL (0.70-1.30) 05/01/24 05:29 Glucose 97 mg/dL (74-106) 05/01/24 05:29 Phosphorus 4.0 mg/dL (2.5-4.9) 05/01/24 05:29 Magnesium 2.6 mg/dL (1.6-2.4) H 05/01/24 05:29 Total Bilirubin 0.6 mg/dL (0.2-1.0) 04/16/24 12:40 AST 17 U/L (15-37) 04/16/24 12:40 ALT 18 U/L (16-61) 04/16/24 12:40 Alkaline Phosphatase 79 U/L (45-117) 04/16/24 12:40 Home Medications: Buspirone HCl 2 tab PO BID #60 tab 01/21/24 Escitalopram Oxalate 20 mg PO DAILY #30 tab 01/21/24 Gabapentin [Neurontin*] 200 mg PO TID #120 cap 01/21/24 Multivit-Min/Iron/Folic Acid/K [Multi-Day Plus Minerals Tablet] 1 tab PO DAILY #30 tab 01/21/24 Sertraline [Zoloft*] 100 mg PO DAILY #30 tab 01/21/24 methocarbamoL [Methocarbamol] 500 mg PO TID #90 tab 01/21/24 Collagenase [Santyl Ointment*] 1 appl TOP DAILY #1 tube 03/12/24 Hydrocodone 7.5/APAP 325 [[place] 7.5/325 mg*] 1 tab PO Q6HP PRN #20 tab 03/12/24 Aspirin [Aspirin EC 81 MG] 81 mg PO DAILY 04/16/24 Atorvastatin Calcium 40 mg PO BEDTIME 04/16/24 Clopidogrel Bisulfate [Plavix] 75 mg PO DAILY 04/16/24 PHENYTOIN ER Cap [Dilantin ER Cap*] 300 mg PO BEDTIME 04/16/24 levETIRAcetam [Keppra*] 1,500 mg PO BID 04/16/24 Collagenase [Santyl Ointment*] 1 appl TOP DAILY tube 05/01/24 Hydrocodone 10/APAP 325 [[place] 10/325*] 1 tab PO Q6H PRN tab 05/01/24 Physician Discharge Instructions: Patient was admitted to the hospital for seizure, concern for infection of the right foot. He underwent debridement on 04/18/2024, wound culture from that surgery grew E. coli ESBL. Patient was seen by infectious disease recommended total of 6 weeks of IV antibiotics with meropenem. Best option for patient to receive antibiotics ended up being long term facility, patient was ultimately accepted to [facility] in [facility]. In regards to his seizures his Dilantin level was checked on 04/16 and found to be 1, he was given Dilantin through his hospitalization and his level was rechecked on 05/01 and increased to 4.6. Recommend he continue the Dilantin 300 mg at bedtime as well as the Keppra 1500 mg by mouth twice daily. He had no fur ther seizure activity during hospitalization. His level of compliance with a Dilantin outpatient is unclear, he states that he is totally compliant and he does have the prescription bottles with him but difficult to explain the very low levels of Dilantin. UDS/EtOH negative. Continue home medications Patient would benefit with tobacco cessation Will need to continue to receive IV antibiotics through 06/01/2024 with IV meropenem. Patient stable for transfer to SNF at this time Diet: Regular Activity: Non-weight bearing Followup: Faizan Lay MD [Primary Care Provider] - 1-2 Weeks Time spent managing pt's care (in minutes): 36
[2024-05-02] MEDS: MORPHINE 2 MG/ML SYR IV PRN (10:13)
--- NOTE | 2024-05-02 16:48 | P.PN ---
Date of Service: 05/02/24 Subjective: Calm and cooperative no new complaints accepted at [facility] in [place] Appealed discharge-denied Does not want to go to [place] as its "too far away" No closer options as patient has had bad experiences elsewhere ROS: 10 point ROS as noted above, otherwise negative Physical exam GEN: Alert and oriented x3, NAD HEENT: Normal conjunctiva, sclera anicteric CV: RRR, S1 S2 present, no edema Pulm: nonlaborded breathing, Clear BBS, on room air ABD: ND/NT, normal active Bowel sounds MSK: No joint tenderness, left bka, right TMA, dressing CDI Integumentary: No rashes, mild erythema RLE Neuro: Normal speech, normal affect Vitals reviewed Assessment: Suspected severe sepsis secondary to right foot cellulitis with chronic wounds Seizureshistory of seizures Chronic diastolic ingestive heart failure Hypertension Hyperlipidemia PAD Tobacco use disorder Plan: Suspected severe sepsis secondary to right foot cellulitis with chronic wounds Blood cultures obtained in ED- no growth in 24 hours S/P debridement of chronic wounds with necrotic tissue present 04/18 Wound culture grew E. coli ESBL-switched to Merrem 04/20 Infectious disease consult-recommend 6 weeks of IV antibiotics with meropenem which would be through 06/01/2024 PT consult SNF approved Also discussing low cost apartments with case management Seizureshistory of seizures-Stable Continue Dilantin, Keppra Loaded with Keppra in ED Discussed with neuro who significantly doubts compliance Dilantin level low, patient reports he is compliant with meds Dilantin level repeated, up to 4.6 Keppra level was therapeutic Counseled on importance of compliance with seizure meds Recommend repeat dilantin level ~one week after DC Seizure precautions Chronic diastolic ingestive heart failure Hypertension Hyperlipidemia PAD Tobacco use disorder Continue home medications, counseled on need for tobacco cessation DVT PPX: Lovenox Code status: Full Discharge Plan: Home vs [facility] Plan to discharge in: 48 hours
[2024-05-03 08:42] VITALS: BP 126/58; TEMP 97.6
--- NOTE | 2024-05-03 14:09 | P.PN ---
Date of Service: 05/03/24 Subjective: Patient now agreeable to going to SNF [facility] See DC summary completed on 05/01 for further details on dispo ROS: 10 point ROS as noted above, otherwise negative Physical exam GEN: Alert and oriented x3, NAD HEENT: Normal conjunctiva, sclera anicteric CV: RRR, S1 S2 present, no edema Pulm: nonlaborded breathing, Clear BBS, on room air ABD: ND/NT, normal active Bowel sounds MSK: No joint tenderness, left bka, right TMA, dressing CDI Integumentary: No rashes, mild erythema RLE Neuro: Normal speech, normal affect Vitals reviewed Assessment: Suspected severe sepsis secondary to right foot cellulitis with chronic wounds Seizureshistory of seizures Chronic diastolic ingestive heart failure Hypertension Hyperlipidemia PAD Tobacco use disorder Plan: Suspected severe sepsis secondary to right foot cellulitis with chronic wounds Blood cultures obtained in ED- no growth in 24 hours S/P debridement of chronic wounds with necrotic tissue present 04/18 Wound culture grew E. coli ESBL-switched to Merrem 04/20 Infectious disease consult-recommend 6 weeks of IV antibiotics with meropenem which would be through 06/01/2024 [facility] approved Seizureshistory of seizures-Stable Continue Dilantin, Keppra Loaded with Keppra in ED Discussed with neuro who significantly doubts compliance Dilantin level low, patient reports he is compliant with meds Dilantin level repeated, up to 4.6 Keppra level was therapeutic Counseled on importance of compliance with seizure meds Seizure precautions Chronic diastolic ingestive heart failure Hypertension Hyperlipidemia PAD Tobacco use disorder Continue home medications, counseled on need for tobacco cessation DVT PPX: Lovenox Code status: Full Discharge Plan: [facility] Plan to discharge in: now
--- NOTE | 2024-05-12 18:51 | P.PN ---
Subjective Date of Service: 11/26/23 Chief Complaint: Sepsis, seizure Patient denies any complaint. He reports good sleep. He is tolerating diet. Physical Examination - Vital Signs Temperature: 97.6 F Blood Pressure: 126/58 Pulse: 69 Respirations: 16 Pulse Ox (%): 97 Assessment And Plan - Plan Physical Exam: GEN: Alert, oriented, NAD HEENT: Sclera anicteric. CV: Regular rate and rhythm, no murmur Pulm: Nonlabored respirations on room air, clear bilaterally ABD: Soft, nontender, nondistended Musculoskeletal: Right BKA with clean dressing vitals reviewed Problem List: Multiple nonhealing right foot ulcers, complicated by osteomyelitis hx recurrent osteomyelitis Severe Peripheral Artery Disease CODY, resolved hx squamous cell carcinoma Seizure disorder chronic CHF Chronic COPD hx CAD s/p prior PCI Hypertension GERD hx alcohol abuse tobacco dependance Multiple nonhealing right foot ulcers, presumed osteomyelitis hx recurrent osteomyelitis Severe Peripheral Artery Disease History of multiple worsening nonhealing foot wounds since July. History of noncompliance with wound care visits. Prior hx of osteomyelitis of both lower extremities as far back as 2012, again in 2018. +Multiple hospitalizations for gangrenous wounds/cellulitis over the past few years Most recent Doppler u/s (06/21/23): Monophasic waveforms throughout RLE consistent with moderate-severe stenosis h/o b/l lower extremity stents ~3-4 yrs ago - [facility] lower extremity (11/17): Severe PAD. RLE with severe stenosis present at R ext iliac artery and right SFA. Popliteal artery has short-segmented occlusion and is diminutive. Runoff vessels have some stenoses proximally and both the anterior and posterior tibial arteries are patent into the foot. -Nonvascular findings: cholelithiasis partially visualized. Dr. Izaguirre consulted 11/18 and scheduled patient for angiogram 11/20 but could not be done because the machine was down. Foot xray (11/15): Notable demineralization seen of remnant stump of first meta tarsal which could indicate osteomyelitis. MRI R foot (11/18): Confirmed osteomyelitis involving the remaining base of the first metatarsal and the medial cuneiform, with osseous destructive changes surrounding the first tarsometatarsal articulation. Dr. Lay, general surgeon performed debridement of all the wounds 11/18 Prolonged antibiotics recommended. continue empiric levaquin / vanc. Patient slated for 6 weeks of IV antibiotic. blood cx (11/15): NGTD wound cx (11/16): Proteus Vulgaris, 2+ beta hemolytic strep grp B prelim afebrile, no leukocytosis, CRP worse (11/18) Deep tissue wound culture growing Staph aureus. He needs daily wound care and physician assessments Hyperbaric oxygen treatments for chronic nonhealing wounds recommended. Dr. Vyas performed angiogram and noted under percent occlusion of the left external iliac artery, PCI was unsuccessful. Dr. Izaguirre I have recommended follow-up with him in [facility] for another attempt as outpatient. Infectious disease Dr. Conroy's is following Patient is slated for LTAC placement CODY Prerenal Resolved. Monitor renal function hx squamous cell carcinoma Had 6x3cm right hand mass removed 01/30/17 - found to be Squamous cell carcinoma Follow-up with ENT as outpatient. Seizure disorder Continue home dose keppra and dilantin chronic CHF Chronic COPD hx CAD s/p prior PCI Hypertension GERD hx alcohol abuse Stable Continue home meds tobacco dependance On nicotine patch. VTE: lovenox Code: Full Dispo: LTAC
== END 2024-05-03 13:59 | DRG 854 ==
LOC: ER 10:56 → ERHOLD 15:36 → 3RD-ICU 18:38 → 2ND 04-18 12:05
PROVIDERS: ADMIT Hospitalist; ATTEND Hospitalist
PROC: 0JBQ0ZZ Excision of Right Foot Subcutaneous Tissue and Fascia, Open Approach (ICD-10-PCS; principal; 2024-04-18 15:30)
PROC: 02HV33Z Insertion of Infusion Device into Superior Vena Cava, Percutaneous Approach (ICD-10-PCS; 2024-04-21)
DX: A41.51 Sepsis due to Escherichia coli [E. coli] (principal); E87.1 Hypo-osmolality and hyponatremia; L03.116 Cellulitis of left lower limb; I50.32 Chronic diastolic (congestive) heart failure; I96 Gangrene, not elsewhere classified; Z16.12 Extended spectrum beta lactamase (ESBL) resistance; M86.8X7 Other osteomyelitis, ankle and foot; N17.9 Acute kidney failure, unspecified; R65.20 Severe sepsis without septic shock; I11.0 Hypertensive heart disease with heart failure; E78.5 Hyperlipidemia, unspecified; D63.8 Anemia in other chronic diseases classified elsewhere; K21.9 Gastro-esophageal reflux disease without esophagitis; J44.9 Chronic obstructive pulmonary disease, unspecified; L97.519 Non-pressure chronic ulcer of other part of right foot with unspecified severity; I25.10 Atherosclerotic heart disease of native coronary artery without angina pectoris; G40.909 Epilepsy, unspecified, not intractable, without status epilepticus; F17.210 Nicotine dependence, cigarettes, uncomplicated; I25.2 Old myocardial infarction; Z71.6 Tobacco abuse counseling; Z95.5 Presence of coronary angioplasty implant and graft; Z88.8 Allergy status to other drugs, medicaments and biological substances; Z79.82 Long term (current) use of aspirin; Z79.02 Long term (current) use of antithrombotics/antiplatelets; Z89.421 Acquired absence of other right toe(s); Z79.899 Other long term (current) drug therapy; Z89.512 Acquired absence of left leg below knee
CPT/HCPCS: 36415; 71045; 80048; 80053; 80177; 80185; 80202; 80307; 82077; 82550; 82947; 83605; 83735; 84100; 84439; 84443; 85025; 85027; 85610; 85730; 87040; 87070; 87075; 87077; 87186; 87205; 93005; 96365; 96366; 96375; 97161; 99285; J1650; J1953; J2003; J2185; J2270; J2371; J2405; J2704; J2997; J3010; J3590; J7030; J7040; J7050; J7120

== ENCOUNTER 2024-06-26 16:07 | Emergency (ER) | payer OTHER ==
[2024-06-26] MEDS ORDERED: HYDROCODONE/APAP 7.5/325 MG TAB ONE (16:28)
[2024-06-26] MEDS ORDERED: NA CHLORIDE 0.9% 1,000 ML ONE (16:29)
--- NOTE | 2024-06-26 17:15 | RAD REPORT ---
EXAMINATION: CT HEAD WITHOUT CONTRAST CT CERVICAL SPINE WITHOUT CONTRAST CLINICAL INDICATION: Syncope. Head and neck injury status post fall. Head and neck pain TECHNIQUE: Axial CT images from the skull base to the vertex without intravenous contrast. Axial CT i mages through the cervical spine were obtained without intravenous contrast. Sagittal and coronal reformatted images were created from the data set. Coronal and sagittal reformatted images were creat ed from the data set. One or more of the following dose reduction techniques were used: Automated exposure control, adjustment of the mA and/or kV according to patient size, and/or iterative reconstr uction. Unless otherwise specified, incidental findings do not require dedicated imaging follow-up. [id number]. Comparison: March 2024 FINDINGS: An intracranial bleed is not seen. Ventricles are normal in caliber. Mild to moderate low-density paraventricular, deep and subcortical white matter likely ischemic allen es secondary to small vessel disease. No extra-axial fluid collection. No fluid within the sinuses/mastoids No fracture or dislocation is seen involving the cervical spine. 2.3 cm calculus right submandibular gland. IMPRESSION: No acute intracranial abnormality noted A cervical fracture is not seen. If the patient continues to have symptoms to suggest acute [employer]/spinal pathology then MRI would be rec ommended
--- NOTE | 2024-06-26 17:19 | RAD REPORT ---
Procedure: Chest Single View HISTORY: Syncope COMPARISON: February 2024 FINDINGS: Medial right base mildly hazy. Left lung appears clear of acute infiltrate. No significant pleural effusion noted. The heart is normal size. IMPRESSION: Medial right base mildly hazy which may indicate mild pneumonia
[2024-06-26 17:23] LABS: Absolute Basophils 0.1 K/uL (0-0.5); Absolute Eosinophils 0.5 K/uL (0-0.5); Absolute Lymphocytes (CBC) 2.3 K/uL (0.7-4.9); Absolute Neutrophil 6.3 K/uL (1.8-8.0); Basophils % 0.9 % (0-1.3); Eosinophils % 5.2 % (0-4.4); Hematocrit 33.3 % (39.6-49.0); Hemoglobin 11.5 g/dL (13.6-17.9); Lymphocytes % 22.8 % (15.3-44.8); MCH 30.8 pg (27.0-35.0); MCHC 34.4 g/dL (32.0-36.0); MCV 89.4 fL (80-100); MPV 7.4 fL (7.6-11.3); Monocytes % 9.4 % (3.3-12.3); Neutrophils % 61.7 % (41.7-73.7); Nucleated Red Blood Cells % 0.1 % (0-0); Platelets 228 thou/uL (152-406); RBC Red Blood Cell Count 3.72 M/uL (4.33-5.43); Red Cell Distribution Width 16.1 % (12.1-15.2)
[2024-06-26 17:36] LABS: ALT/SGPT 32 U/L (16-61); AST/SGOT 20 U/L (15-37); Albumin/Globulin Ratio 0.6 (1.1-1.8); Alkaline Phosphatase 89 U/L (45-117); Anion Gap 12.4 mEq/L (5.0-15.0); BUN Blood Urea Nitrogen 16 mg/dL (7-18); Bicarbonate 22 mEq/L (21-32); Bilirubin Total 0.3 mg/dL (0.2-1.0); Globulin 5.2 g/dL (2.3-3.5); Glomerular Filtration Rate 84 ml/min (=/>90); Glucose Level 90 mg/dL (74-106); Potassium 4.4 mEq/L (3.5-5.1); Protein, Total 8.2 g/dL (6.4-8.2); Sodium Level 136 mEq/L (136-145); Troponin High Sensitivity 4.7 pg/mL (<58.9)
[2024-06-26 17:44] LABS: Bilirubin Direct < 0.2 mg/dL (0-0.2); Bilirubin Indirect, Calculated 0.1 mg/dL (0.2-0.8)
--- NOTE | 2024-06-26 18:46 | ER ---
Nurse's Notes [facility] Name: Karlos Leblanc Age: 58 yrs Sex: Male : 1965 Arrival Date: 06/26/2024 Time: 16:07 Bed 5 Private MD: Diagnosis: syncope;community acquired pneumonia Presentation: 06/26 16:09 Chief complaint: EMS states: Toned out for syncope while sitting on the bus, pt denies jl7 and discomfort. Coronavirus screen: At this time, the client does not indicate any symptoms associated with coronavirus-19. Ebola Screen: No symptoms or risks identified at this time. Risk Assessment: Do you want to hurt yourself or someone else? Patient reports no desire to harm self or others. Onset of symptoms was June 26, 2024. 16:09 Method Of Arrival: EMS: [facility] jl7 16:09 Acuity: KENIA 2 jl7 06/27 03:02 Initial Sepsis Screen: Does the patient meet any 2 criteria? No. Patient's initial bm8 sepsis screen is negative. Does the patient have a suspected source of infection? No. Patient's initial sepsis screen is negative. Triage Assessment: 06/26 16:11 General: Appears in no apparent distress. uncomfortable, Behavior is calm, cooperative, jl7 appropriate for age. Pain: Complains of pain in right foot. Neuro: Reports a syncopal episode. Historical: - Allergies: 16:11 NKDA; jl7 - PMHx: 16:11 vascular disease (Right toes amputati); Seizures; Myocardial infarction; Hypertension; jl7 Chronic obstructive lung disease; - PSHx: 16:11 Right toes amputation; Left Leg Amputation (below the knee); cardiac stents; jl7 - Immunization history:: Adult Immunizations unknown. - Infectious Disease History:: Denies. - Social history:: Smoking status: Patient reports the use of cigarette tobacco products. - Family history:: not pertinent. Screenin:36 [facility] ED Fall Risk Assessment (Adult) History of falling in the last 3 months, ko1 including since admission No falls in past 3 months (0 pts) Confusion or Disorientation No (0 pts) Intoxicated or Sedated No (0 pts) Impaired Gait No (0 pts) Mobility Assist Device Used No (0 pt) Altered Elimination No (0 pt) Score/Fall Risk Level 0 - 2 = Low Risk Oriented to surroundings, Maintained a safe environment, Educated pt \\T\\ family on fall prevention, incl call for assistance when getting out of bed, Assessed \\T\\ reinforced patient's understanding of fall precautions, Provided non-skid footwear, Hourly rounding (assess needs \\T\\ fall precautionary measures) done. Abuse screen: Denies threats or abuse. Denies injuries from another. Nutritional screening: No deficits noted. Tuberculosis screening: No symptoms or risk factors identified. Assessment: 16:36 General: Appears in no apparent distress. Behavior is calm, cooperative, appropriate ko1 for age. Pain: Complains of pain in right foot. Neuro: Level of Consciousness is awake, alert, obeys commands. Cardiovascular: Reports syncope, Rhythm is sinus rhythm. Respiratory: No deficits noted. GI: No deficits noted. No signs and/or symptoms were reported involving the gastrointestinal system. : No deficits noted. No signs and/or symptoms were reported regarding the genitourinary system. EENT: No deficits noted. No signs and/or symptoms were reported regarding the EENT system. Derm: No deficits noted. No signs and/or symptoms reported regarding the dermatologic system. Musculoskeletal: Amputation of left foot and right foot. 18:30 Reassessment: Patient is alert, oriented x 3, equal unlabored respirations, skin aa5 warm/dry/pink. Pt given food as requested, warm blankets, and extra pillow. . 19:11 Reassessment: called leigh ann at [facility] and spoke with Judy. Gave report to her and [facility] informed her Pt needed a ride home. She stated that she would call for an ambulance and call back with an ETA. PT will remain in room until transportation arrives. 20:08 Reassessment: Patient appears in no apparent distress at this time. No changes from bm8 previously documented assessment. Patient and/or family updated on plan of care and expected duration. Pain level reassessed. Patient is alert, oriented x 3, equal unlabored respirations, skin warm/dry/pink. Patient states feeling better. Patient states symptoms have improved. 20:27 Reassessment: Another individual from [employer] called to explain that they do not setup bm8 transportation because their tractor trailer moving van driver is gone for the evening. I explained in return that this pt is not bed bound and the hospital is not responsible for setting up transportation for this pt. She stated that she would call her AOC and see what could be done. Charge Nurse Lucille informed of situation. 20:40 General: called and spoke to [facility] director, per facility director, PT signed lg3 himself out of facility today, therefor facility is not responsible for pt transport. 20:47 General: person to notify (Brother Yoseph) was notified. per Brother, he does not have lg3 a vehicle and unable to facilitate transport for pt . 21:00 General: Spoke to Son, explained that family was responsible for getting pt back to [facility] facility. He stated he was out of town but would try to find transportation and would call back.. 21:48 General: attempted to contact son for update. no answer. voice mail left.. lg3 06/27 00:00 Reassessment: Patient appears in no apparent distress at this time. No changes from bm8 previously documented assessment. Patient and/or family updated on plan of care and expected duration. Pain level reassessed. no success of achieving ride for pt. Patient denies pain at this time. Patient states feeling better. Patient states symptoms have improved. Vital Signs: 06/26 16:09 Temp 98.1; jl7 18:54 BP 133 / 63; Pulse 77; Resp 15; Pulse Ox 99% on R/A; ko1 20:08 BP 135 / 62; Pulse 78; Resp 17; Temp 98.1; Pulse Ox 99% ; Pain 0/10; bm8 06/27 00:00 BP 127 / 67; Pulse 73; Resp 17; Temp 98.4; Pulse Ox 99% ; Pain 0/10; bm8 02:58 BP 137 / 63; Pulse 72; Resp 16; Temp 98.2; Pulse Ox 99% ; Pain 0/10; bm8 20:08 Pain Scale: Adult bm8 06/27 00:00 Pain Scale: Adult bm8 02:58 Pain Scale: Adult bm8 Patricia Coma Score: 06/26 20:08 Eye Response: spontaneous(4). Motor Response: obeys commands(6). Verbal Response: bm8 oriented(5). Total: 15. 06/27 00:00 Eye Response: spontaneous(4). Motor Response: obeys commands(6). Verbal Response: bm8 oriented(5). Total: 15. 02:58 Eye Response: spontaneous(4). Motor Response: obeys commands(6). Verbal Response: bm8 oriented(5). Total: 15. ED Course: 06/26 16:09 Patient arrived in ED. jl7 16:11 Triage completed. jl7 16:11 Cheryl Taylor, RN is Primary Nurse. ko1 16:11 Miko Tamez MD is Attending Physician. rt 16:11 Arm band placed on right wrist. jl7 16:36 Patient has correct armband on for positive identification. Bed in low position. Call ko1 light in reach. Side rails up X2. Provided Education on: labs. Client placed on continuous cardiac and pulse oximetry monitoring. NIBP monitoring applied. color shop helper on. Door closed. Noise minimized. Lights dimmed. Warm blanket given. Pillow given. 16:36 EKG done, by ED staff, reviewed by Miko Tamez MD. ko1 16:41 XRAY Chest (1 view) In Process Unspecified. EDMS 16:57 CT Head C Spine In Process Unspecified. EDMS 17:13 Initial lab(s) drawn, by me, sent to lab. Inserted saline lock: 22 gauge in right ko1 forearm, using aseptic technique. Blood collected. Flushed with 10 mL NS. 18:54 No provider procedures requiring assistance completed. ko1 18:54 IV discontinued, intact, bleeding controlled, No redness/swelling at site. Pressure ko1 dressing applied. 20:08 Primary Nurse role handed off by Cheryl Taylor, RN bm8 20:08 Kiel Lewis RN is Primary Nurse. bm8 23:58 Attempted to contact [employer], again to facilitate transportation for patient, no rv1 answer. Charge Nurse notified. 06/27 07:00 Attending Physician role handed off by Miko Tamez MD eb 07:02 Report received from TAVO Dyson. ld1 07:51 Primary Nurse role handed off by Kiel Lewis RN eb 08:10 called [facility] to arrange transport- per the nurse caring for the patient at [facility] eb " I'm the new day nurse and i'm not really sure what to do with this, supervisor concrete stone fabricating did tell me but i'll have to speak with the hire car driver and call ya'll back". Administered Medications: 06/26 16:30 Drug: Hydrocodone-Acetaminophen PO (7.5 mg-325 mg) 1 tabs PO once Route: PO; ko1 17:00 Follow up: Response: No adverse reaction ko1 17:21 Drug: NS 0.9% IV 1000 ml IV at 1000 ml once; to be given as a bolus over 60 minutes ko1 Route: IV; Rate: 1000 ml; Site: right forearm; 18:15 Follow up: Response: No adverse reaction; IV Status: Completed infusion; IV Intake: ko1 1000ml Medication: 16:36 VIS not applicable for this client. ko1 Intake: 18:15 IV: 1000ml; Total: 1000ml. ko1 Outcome: 18:46 Discharge ordered by . rt 06/27 02:58 Discharged to Home w/ Home Health bm8 Condition: stable Discharge instructions given to patient, retirement, Instructed on discharge instructions, follow up and referral plans. medication usage, safety practices, Demonstrated understanding of instructions, follow-up care, medications, Prescriptions given X 2, 03:03 Patient left the ED. bm8 09:43 Patient left the ED. ll1 Signatures: Dispatcher [employer] EDMS Scarlet Washignton, RN RN aa5 Davy Garza RN RN jl7 Mary Paiz Lacie, RN RN lg3 Phil Cabral, RN RN ll1 Lise Zheng, RN RN ld1 Cheryl Taylor, RN RN ko1 Miko Tamez MD MD rt Vira Scott rv1 Kiel Lewis, RN RN bm8 Corrections: (The following items were deleted from the chart) 06/26 22:44 22:40 General: called and spoke to [facility] director, per facility director, PT signed lg3 himself out of facility today, therefor facility is not responsible for pt transport. lg3 22:44 22:44 General: lg3 lg3 22:50 22:44 General: lg3 lg3 23:04 20:59 General: Spoke to Son, explained that family was responsible for getting pt back lg3 to facility. He stated he was out of town but would try to find transportation and would call back.. lg3
--- NOTE | 2024-06-26 18:46 | EDPHYS ---
Physician Documentation [facility] Name: Karlos Leblanc Age: 58 yrs Sex: Male : 1965 Arrival Date: 06/26/2024 Time: 16:07 Bed 5 Private MD: ED Physician HPI: 06/26 16:51 This 58 yrs old Male presents to ER via EMS with complaints of Syncope. rt 16:51 Patient presents to the ED with reported syncopal event versus seizure. Patient does rt report having history of seizures. He believes that he hit his head as he has a headache. Denies other symptoms, acute complaints at this, symptoms are moderate severity, no other aggravating or elevating factors.. Historical: - Allergies: 16:11 NKDA; jl7 - PMHx: 16:11 vascular disease (Right toes amputati); Seizures; Myocardial infarction; Hypertension; jl7 Chronic obstructive lung disease; - PSHx: 16:11 Right toes amputation; Left Leg Amputation (below the knee); cardiac stents; jl7 - Immunization history:: Adult Immunizations unknown. - Infectious Disease History:: Denies. - Social history:: Smoking status: Patient reports the use of cigarette tobacco products. - Family history:: not pertinent. ROS: 16:51 Constitutional: Negative for fever, chills, and weight loss, Cardiovascular: Negative rt for chest pain, palpitations, and edema, Respiratory: Negative for shortness of breath, cough, wheezing, and pleuritic chest pain, Abdomen/GI: Negative for abdominal pain, nausea, vomiting, diarrhea, and constipation, MS/Extremity: Negative for injury and deformity, Skin: Negative for injury, rash, and discoloration, 16:51 Neuro: Positive for loss of consciousness, syncope, Negative for Exam: 16:51 Constitutional: This is a well developed, well nourished patient who is awake, alert, rt and in no acute distress. Head/Face: Normocephalic, atraumatic. Chest/axilla: Normal chest wall appearance and motion. Nontender with no deformity. No lesions are appreciated. Cardiovascular: Regular rate and rhythm with a normal S1 and S2. No gallops, murmurs, or rubs. Normal PMI, no JVD. No pulse deficits. Respiratory: Lungs have equal breath sounds bilaterally, clear to auscultation and percussion. No rales, rhonchi or wheezes noted. No increased work of breathing, no retractions or nasal flaring. Abdomen/GI: Soft, non-tender, with normal bowel sounds. No distension or tympany. No guarding or rebound. No evidence of tenderness throughout. Skin: Warm, dry with normal turgor. Normal color with no rashes, no lesions, and no evidence of cellulitis. MS/ Extremity: Pulses equal, no cyanosis. Neurovascular intact. Full, normal range of motion. Neuro: Awake and alert, GCS 15, oriented to person, place, time, and situation. Cranial nerves II-XII grossly intact. Motor strength 5/5 in all extremities. Sensory grossly intact. Cerebellar exam normal. Normal gait. 16:51 ECG was reviewed by the Attending Physician. Vital Signs: 16:09 Temp 98.1; jl7 18:54 BP 133 / 63; Pulse 77; Resp 15; Pulse Ox 99% on R/A; ko1 20:08 BP 135 / 62; Pulse 78; Resp 17; Temp 98.1; Pulse Ox 99% ; Pain 0/10; bm8 06/27 00:00 BP 127 / 67; Pulse 73; Resp 17; Temp 98.4; Pulse Ox 99% ; Pain 0/10; bm8 02:58 BP 137 / 63; Pulse 72; Resp 16; Temp 98.2; Pulse Ox 99% ; Pain 0/10; bm8 20:08 Pain Scale: Adult bm8 06/27 00:00 Pain Scale: Adult bm8 02:58 Pain Scale: Adult bm8 Patricia Coma Score: 06/26 20:08 Eye Response: spontaneous(4). Motor Response: obeys commands(6). Verbal Response: bm8 oriented(5). Total: 15. 06/27 00:00 Eye Response: spontaneous(4). Motor Response: obeys commands(6). Verbal Response: bm8 oriented(5). Total: 15. 02:58 Eye Response: spontaneous(4). Motor Response: obeys commands(6). Verbal Response: bm8 oriented(5). Total: 15. MDM: 06/26 16:13 Medical Screening Exam initiated rt 18:56 Differential Diagnosis: Syncope, seizure, dehydration, dysrhythmia. Data reviewed: rt vital signs, nurses notes, lab test result(s), EKG, radiologic studies. Consideration of Admission/Observation Escalation of care including admission/observation considered. Patient with incidentally found community-acquired pneumonia, is not hypoxic, labs are benign. Believe this is amenable to outpatient management. Unclear if patient had seizure versus syncopal episode, however, workup is benign. Not likely to benefit from admission to the hospital, return precautions were discussed. I considered the following discharge prescriptions or medication management in the emergency department Medications were administered in the Emergency Department. See MAR. Independent interpretation of the following test(s) in the Emergency Department CT Scan: My interpretation is No intracranial hemorrhage seen on interpretation of CT scan images. Care significantly affected by the following chronic conditions: Seizure disorder. Counseling: I had a detailed discussion with the patient and/or guardian regarding the historical points, exam findings, and any diagnostic results supporting the discharge/admit diagnosis, lab results, radiology results, the need for outpatient follow up, to return to the emergency department if symptoms worsen or persist or if there are any questions or concerns that arise at home. Response to treatment: the patient's symptoms have mildly improved after treatment. 06/26 16:17 Order name: Basic Metabolic Panel; Complete Time: 17:46 rt 06/26 16:17 Order name: CBC with Diff; Complete Time: 17:46 rt 06/26 16:17 Order name: LFT's; Complete Time: 17:46 rt 06/26 16:17 Order name: Troponin HS; Complete Time: 17:46 rt 06/26 16:17 Order name: XRAY Chest (1 view); Complete Time: 17:20 rt 06/26 16:17 Order name: CT Head C Spine; Complete Time: 17:20 rt 06/26 16:17 Order name: EKG; Complete Time: 16:18 rt 06/26 16:17 Order name: Cardiac monitoring; Complete Time: 16:20 rt 06/26 16:17 Order name: EKG - Nurse/Tech; Complete Time: 16:27 rt 06/26 16:17 Order name: IV Saline Lock; Complete Time: 16:36 rt 06/26 16:17 Order name: Labs collected and sent; Complete Time: 16:36 rt 06/26 16:17 Order name: O2 Per Protocol; Complete Time: 16: rt 06/26 16:17 Order name: O2 Sat Monitoring; Complete Time: 16:20 rt EC:51 Rate is 76 beats/min. Rhythm is regular, Normal Sinus Rhythm with No ectopy. QRS [place] rt is Normal. CA interval is normal. QRS interval is normal. QT interval is normal. No Q waves. T waves are Normal. No ST changes noted. Interpreted by me. Administered Medications: 16:30 Drug: Hydrocodone-Acetaminophen PO (7.5 mg-325 mg) 1 tabs PO once Route: PO; ko1 17:00 Follow up: Response: No adverse reaction ko1 17:21 Drug: NS 0.9% IV 1000 ml IV at 1000 ml once; to be given as a bolus over 60 minutes ko1 Route: IV; Rate: 1000 ml; Site: right forearm; 18:15 Follow up: Response: No adverse reaction; IV Status: Completed infusion; IV Intake: ko1 1000ml Disposition Summary: 06/26/24 18:46 Discharge Ordered Notes: Location: Home rt Problem: new rt Symptoms: have improved rt Condition: Stable rt Diagnosis - syncope rt - community acquired pneumonia rt Followup: rt - With: Private Physician - When: 2 - 3 days - Reason: Discharge Instructions: - Discharge Summary Sheet rt - Community-Acquired Pneumonia, Adult rt - Syncope rt Forms: - Medication Reconciliation Form rt - Antibiotic Education rt - Prescription Opioid Use rt - Patient Portal Instructions rt - Leadership Thank You Letter rt Prescriptions: - Doxycycline Hyclate 100 mg Oral Tablet - take 1 tablet ORAL route every 12 hours; 20 tablet; Refills: 0, Product rt Selection Permitted Signatures: Dispatcher [employer] EDDavy Morris RN RN jl7 Cheryl Taylor RN RN ko1 Miko Tamez MD MD rt Corrections: (The following items were deleted from the chart) 16:18 16:18 BASIC METABOLIC PANEL+C.LAB.BRZ ordered. EDMS EDMS 16:18 16:18 CBC+H.LAB.BRZ ordered. EDMS EDMS 16:18 16:18 HEPATIC FUNCTION+C.LAB.BRZ ordered. EDMS EDMS 16:18 16:18 Troponin High Sensitivity+C.LAB.BRZ ordered. EDMS EDMS
[2024-06-27 09:21] VITALS: O2SAT 99
[2024-06-27 09:25] VITALS: BP 137/63; TEMP 98.2
== END 2024-06-27 09:43 | disposition home or self-care (01) ==
LOC: ER 16:07
DX: J18.9 Pneumonia, unspecified organism (principal); Z72.0 Tobacco use
CPT/HCPCS: 85025; 80048; 36415; 80076; 84484; 70450; 72125; 71045; 96360; 99285; J7030; 93005

== ENCOUNTER 2024-08-16 21:36 | Inpatient (IN) | payer OTHER ==
--- NOTE | 2024-08-16 22:31 | RAD REPORT ---
Procedure: Chest Single View HISTORY: Congestion COMPARISON: May 2024 FINDINGS: Medial right base mildly hazy. The remainder of the lungs appear clear. No significant pleural effusion noted. The heart is normal size. IMPRESSION: Medial right base is mildly hazy. This may represent a mild infiltrate or confluence of ribs and vess els. PA and lateral chest series may be helpful for further evaluation
--- NOTE | 2024-08-16 22:33 | RAD REPORT ---
Exam:Foot Right 3 View CLINICAL HISTORY: Right foot pain FINDINGS: Amputation involves almost all of each metatarsal. An ulceration involves the soft tissue lateral foot. An erosion involves the residual fifth metatarsal suspicious for osteomyelitis
[2024-08-16 22:50] LABS: Absolute Basophils 0.1 K/uL (0-0.5); Absolute Eosinophils 0.4 K/uL (0-0.5); Absolute Lymphocytes (CBC) 2.2 K/uL (0.7-4.9); Absolute Monocytes 0.8 K/uL (0.1-1.3); Absolute Neutrophil 7.1 K/uL (1.8-8.0); Eosinophils % 3.3 % (0-4.4); Hematocrit 33.5 % (39.6-49.0); Hemoglobin 11.6 g/dL (13.6-17.9); Lymphocytes % 20.7 % (15.3-44.8); MCH 31.6 pg (27.0-35.0); MCHC 34.8 g/dL (32.0-36.0); MCV 90.9 fL (80-100); MPV 6.9 fL (7.6-11.3); Monocytes % 7.5 % (3.3-12.3); Neutrophils % 67.5 % (41.7-73.7); Platelets 176 thou/uL (152-406); RBC Red Blood Cell Count 3.69 M/uL (4.33-5.43); Red Cell Distribution Width 16.5 % (12.1-15.2)
[2024-08-16] MEDS ORDERED: IPRATROPIUM BROM 0.5MG/2.5ML ONE (22:52)
[2024-08-16] MEDS ORDERED: METHYLPREDNISOLONE 125 MG INJ ONE (22:52)
[2024-08-16] MEDS ORDERED: MORPHINE 4 MG/ML SYR ONE (22:52)
[2024-08-16] MEDS ORDERED: VANCOMYCIN 1 GM/VIAL ONE (22:52)
[2024-08-16] MEDS ORDERED: ONDANSETRON 4 MG/2 ML VIAL ONE (22:52)
[2024-08-16] MEDS ORDERED: ALBUTEROL 2.5 MG/3 ML NEB SOL ONE (22:52)
[2024-08-16] MEDS ORDERED: MORPHINE 2 MG/ML SYR ONE (22:53)
[2024-08-16] MEDS ORDERED: NA CHLORIDE 0.9% 1,000 ML ONE (22:53)
[2024-08-16] MEDS ORDERED: NA CHLORIDE 0.9% 250 ML ONE (22:53)
[2024-08-16 22:59] LABS: PT Prothrombin Time 12.4 SECONDS (10-13.0); Protime INR 1.09
[2024-08-16] MEDS ORDERED: BENZONATATE 100 MG CAP PO ONE (23:00)
[2024-08-16] MEDS ORDERED: CEFEPIME 2 GM VIAL ONE (23:00)
[2024-08-16] MEDS ORDERED: NA CHLORIDE 0.9% 100 ML ONE (23:00)
[2024-08-16] MEDS ORDERED: GUAIFENESIN/DM 5 ML UCUP ONE (23:00)
[2024-08-16] MEDS ORDERED: NA CHLORIDE 0.9% 500 ML ONE (23:04)
[2024-08-16 23:09] LABS: ALT/SGPT 33 U/L (16-61); AST/SGOT 39 U/L (15-37); Albumin 2.9 g/dL (3.4-5.0); Albumin/Globulin Ratio 0.6 (1.1-1.8); Alkaline Phosphatase 86 U/L (45-117); Anion Gap 13.9 mEq/L (5.0-15.0); BUN Blood Urea Nitrogen 13 mg/dL (7-18); Bicarbonate 19 mEq/L (21-32); Bilirubin Total 0.2 mg/dL (0.2-1.0); Creatine Phosphokinase 491 U/L (39-308); Globulin 4.7 g/dL (2.3-3.5); Glomerular Filtration Rate 103 ml/min (=/>90); Glucose Level 101 mg/dL (74-106); Lipase 69 U/L (13-75); Magnesium 2.3 mg/dL (1.6-2.4); NT PRO-BNP 123 pg/mL (<125); Potassium 2.9 mEq/L (3.5-5.1); Protein, Total 7.6 g/dL (6.4-8.2); Sodium Level 128 mEq/L (136-145)
[2024-08-16 23:10] LABS: Bilirubin Direct < 0.2 mg/dL (0-0.2)
--- NOTE | 2024-08-16 23:49 | EDPHYS ---
Physician Documentation [facility] Name: Karlos Leblanc Age: 58 yrs Sex: Male : 1965 Arrival Date: 08/16/2024 Time: 21:36 Bed 12 Private MD: ED Physician Neto Cornelius HPI: 08/16 23:14 This 58 yrs old Male presents to ER via EMS with complaints of Probable sp4 Seizure. 08/17 22:15 Patient is a very pleasant 58-year-old male with history of COPD, history of PR, sp4 history of hypertension, history of peripheral vascular disease who presents with moderate to severe cough associated with right lower extremity redness swelling and draining pressure ulcer. Patient has history of right foot transmetatarsal amputation and also left lower extremity below-knee amputation. Left lower extremity below-knee amputation site is non problematic. Right foot transmetatarsal amputation has site of draining ulceration associated with surrounding cellulitic changes tracking above the right ankle. . Historical: - Allergies: 08/16 21:44 NKDA; me1 - PMHx: 21:44 Chronic obstructive lung disease; Myocardial infarction; Hypertension; vascular disease me1 (Right toes amputati); Seizures; - PSHx: 21:44 cardiac stents; Right toes amputation; Left Leg Amputation (below the knee); me1 - Immunization history:: Adult Immunizations unknown. - Infectious Disease History:: MRSA (w/in 1 year), "flesh eating disease". - Social history:: Smoking status: Patient reports the use of cigarette tobacco products, smokes one pack cigarettes per day. - Family history:: not pertinent. ROS: 08/17 22:15 Constitutional: Negative for fever, chills, and weight loss, positive cough and sp4 dyspnea, positive right lower extremity cellulitis and draining pressure ulcer All other systems are negative, Exam: 22:15 Constitutional: There is debilitated male who is having COPD body habitus, right sp4 lower extremity transmetatarsal amputation appears cellulitic with draining pressure ulcer. Pressure ulcer at the distal lateral location, patient has left below-knee amputation, signs of prolonged immobility and physical deconditioning Head/Face: Normocephalic, atraumatic. Eyes: Pupils equal round and reactive to light, extra-ocular motions intact. Lids and lashes normal. Conjunctiva and sclera are not injected. Cornea within normal limits. Periorbital areas with no swelling, redness, or edema. ENT: Nares patent. No nasal discharge, no septal abnormalities noted. Tympanic membranes are normal and external auditory canals are clear. Oropharynx with no redness, swelling, or masses, exudates, or evidence of obstruction, uvula midline. Mucous membranes moist. Neck: Trachea midline, no thyromegaly or masses palpated, and no cervical lymphadenopathy. Supple, full range of motion without nuchal rigidity, or vertebral point tenderness. Chest/axilla: Normal chest wall appearance and motion. Nontender with no deformity. No lesions are appreciated. Cardiovascular: Regular rate and rhythm with a normal S1 and S2. No gallops, murmurs, or rubs. Normal PMI, no JVD. No pulse deficits. Respiratory: Lungs have equal breath sounds bilaterally, positive bilateral expiratory wheezing. Positive bilateral expiratory crackles. Positive dyspnea and tachypnea persistent cough on exam. Abdomen/GI: Soft, with normal bowel sounds. No distension or tympany. No guarding or rebound. No evidence of tenderness throughout. Back: No spinal tenderness. No costovertebral tenderness. Skin: Warm, dry with normal turgor. Normal color with no rashes, no lesions, and no evidence of cellulitis. MS/ Extremity: Pulses equal, no cyanosis. Neurovascular intact. Full, normal range of motion. Neuro: Awake and alert, GCS 15, oriented to person, place, time, and situation. Cranial nerves II-XII grossly intact. Motor strength 5/5 in all extremities. Sensory grossly intact. Psych: Awake, alert, with orientation to person, place and time. Behavior, mood, and affect are within normal limits Vital Signs: 08/16 21:39 BP 153 / 82; Pulse 111; Resp 20; Temp 98.4; Pulse Ox 100% ; Weight 104.33 kg; Height 6 me1 ft. 1 in. ; Pain 7/10; 22:00 BP 127 / 75; Pulse 99; Resp 20; Pulse Ox 100% ; me1 23:00 BP 118 / 69; Pulse 102; Resp 20; Pulse Ox 100% ; me1 23:30 BP 115 / 89; Pulse 100; Resp 19; Pulse Ox 100% ; me1 08/17 01:25 BP 129 / 94; Pulse 89; Resp 18 S; Temp 97.1(TE); Pulse Ox 100% on R/A; br2 08/16 21:39 Body Mass Index 30.34 (104.33 kg, 185.42 cm) me1 08/16 21:39 Pain Scale: Adult me1 [place] Coma Score: 08/16 21:44 Eye Response: spontaneous(4). Motor Response: obeys commands(6). Verbal Response: me1 oriented(5). Total: 15. 08/17 22:15 Eye Response: spontaneous(4). Motor Response: obeys commands(6). Verbal Response: sp4 oriented(5). Total: 15. MDM: 08/16 21:49 Medical Screening Exam initiated sp4 23:14 ED course: Procedure: Chest Single View HISTORY: Congestion COMPARISON: May 2024 sp4 FINDINGS: Medial right base mildly hazy. The remainder of the lungs appear clear. No significant pleural effusion noted. The heart is normal size. IMPRESSION: Medial right base is mildly hazy. This may represent a mild infiltrate or confluence of ribs and vessels. PA and lateral chest series may be helpful for further evaluation . ED course: Exam:Foot Right 3 View CLINICAL HISTORY: Right foot pain FINDINGS: Amputation involves almost all of each metatarsal. An ulceration involves the soft tissue lateral foot. An erosion involves the residual fifth metatarsal suspicious for osteomyelitis. 23:50 Differential diagnosis: cardiac arrhythmia, seizure, TIA, Sepsis. Data reviewed: vital sp4 signs, nurses notes, EMS record, old medical records, lab test result(s), radiologic studies, plain films. Consideration of Admission/Observation Patient was admitted/placed on observation. Escalation of care including admission/observation considered. Management of patient was discussed with the following: Hospitalist: Jeffery POSADAS . Software Engineer Intern: Justin Gonsalves MD General Surgery . ED course: Stable for admission for the diagnosis listed below.. 08/16 21:56 Order name: BMP; Complete Time: 23:45 sp4 08/16 21:56 Order name: Blood Culture Adult (2) sp4 08/16 21:56 Order name: CBC with Diff; Complete Time: 23:11 sp4 08/16 21:56 Order name: CPK; Complete Time: 23:45 sp4 08/16 21:56 Order name: Hepatic Function; Complete Time: 23:45 sp4 08/16 21:56 Order name: Lipase; Complete Time: 23:45 sp4 08/16 21:56 Order name: Magnesium; Complete Time: 23:45 sp4 08/16 21:56 Order name: NT PRO-BNP; Complete Time: 23:45 4 08/16 21:56 Order name: PT-INR; Complete Time: 23:11 4 08/16 21:56 Order name: Ptt, Activated; Complete Time: 23:11 4 08/16 21:56 Order name: Lactate w/ 2H reflex if indic.; Complete Time: 23:45 4 08/16 21:56 Order name: CRP; Complete Time: 23:45 4 08/16 23:11 Order name: Ghost Lactate-NO COLLECT Timer EDMS 08/17 00:27 Order name: Urinalysis w/ reflexes EDMS 08/17 00:27 Order name: CBC with Automated Diff EDMS 08/17 00:27 Order name: CBC with Automated Diff EDMS 08/17 00:27 Order name: Comprehensive Metabolic Panel EDMS 08/17 00:27 Order name: Comprehensive Metabolic Panel EDIA 08/17 02:36 Order name: Lactate Sepsis 2 HR Follow-up EDMS 08/16 21:56 Order name: XRAY CXR (1 view); Complete Time: 23:11 [facility] 08/16 21:56 Order name: Foot Right 3 View XRAY; Complete Time: 23:11 [facility] 08/16 21:49 Order name: Saline Lock; Complete Time: 22:09 4 08/16 21:56 Order name: IV Saline Lock; Complete Time: 23:06 [facility] 08/16 21:56 Order name: Labs collected and sent; Complete Time: 22:09 4 08/16 21:56 Order name: O2 Per Protocol; Complete Time: 22:09 4 08/16 21:56 Order name: O2 Sat Monitoring; Complete Time: 22:09 4 08/16 23:57 Order name: Misc. Order: please draw repeat lactate at 0108 kb Administered Medications: 23:07 Drug: Albuterol Inhalation 2.5 mg Inhalation every 20 minutes x3 Route: Inhalation; me1 23:07 Drug: Ipratropium Inhalation Aerosol 0.5 mg Inhalation once; Every 20 min for a total me1 of 3 treatments x3 Route: Inhalation; 23:07 Drug: MethylPrednisoLONE IVP 125 mg IVP once Route: IVP; Site: right forearm; me1 23:48 Follow up: Response: No adverse reaction me1 23:07 Drug: NS 0.9% IV 1000 ml IV at 1000 ml once; to be given as a bolus over 60 minutes me1 Route: IV; Rate: 1000 ml; Site: right forearm; 23:07 Drug: morphine IVP or IV 6 mg IVP once over 4 mins Route: IVP; Infused Over: 4 mins; me1 Site: right forearm; 23:44 Follow up: Response: No adverse reaction; Pain is decreased me1 23:07 Drug: Ondansetron IVP 4 mg IVP once; over 2 minutes Route: IVP; Site: right forearm; me1 23:44 Follow up: Response: No adverse reaction; Nausea is decreased me1 23:07 Drug: Cefepime IVPB 2 grams IVPB at 200 ml/hr once over 30 mins; (mix in NS 100 mL) me1 Route: IVPB; Rate: 200 ml/hr; Infused Over: 30 mins; Site: right forearm; 23:43 Follow up: Response: No adverse reaction; IV Status: Completed infusion me1 23:08 Drug: Dextromethorphan-Guaifenesin PO Liquid 10 mg-100 mg/5 mL 10 ml PO once Route: PO; me1 23:44 Follow up: Response: No adverse reaction me1 23:08 Drug: Tessalon Perle PO 200 mg PO once Route: PO; me1 23:44 Follow up: Response: No adverse reaction me1 23:27 Drug: Albuterol Inhalation 2.5 mg Inhalation every 20 minutes x3 Route: Inhalation; br2 23:27 Drug: Ipratropium Inhalation Aerosol 0.5 mg Inhalation once; Every 20 min for a total me1 of 3 treatments x3 Route: Inhalation; 23:44 Drug: vancoMYCIN IVPB 2 grams IVPB at calculated rate once Route: IVPB; Rate: me1 calculated rate; Site: right forearm; 08/17 02:49 Follow up: Response: No adverse reaction; IV Status: Infusion continued upon admission; br2 IV Intake: 400ml 08/16 23:47 Drug: Albuterol Inhalation 2.5 mg Inhalation every 20 minutes x3 Route: Inhalation; me1 23:47 Drug: Ipratropium Inhalation Aerosol 0.5 mg Inhalation once; Every 20 min for a total me1 of 3 treatments x3 Route: Inhalation; 23:52 Drug: Potassium PO Effervescent Tablet 50 mEq PO once; dissolve in 4 ounces of water or me1 juice Route: PO; 08/17 00:08 Follow up: Response: No adverse reaction br2 Disposition: 22:21 Chart complete. sp4 Disposition Summary: 08/16/24 23:50 Hospitalization Ordered Notes: Hospitalization Status: Inpatient Admission sp4 Provider: Naoh Gil sp4 Location: Telemetry/MedSurg (Inpatient)(08/16/24 23:50) sp4 Condition: Stable(08/16/24 23:50) sp4 Problem: new(08/16/24 23:50) sp4 Symptoms: have improved(08/16/24 23:50) sp4 Bed/Room Type: Standard sp4 Room Assignment: 403(08/17/24 01:02) [facility] Diagnosis - Osteomyelitis, unspecified(08/16/24 23:50) sp4 - COPD/ Chronic obstructive pulmonary disease with (acute) exacerbation(08/16/24 sp4 23:50) - History of transmetatarsal right foot amputation, chronic right foot pressure sp4 ulcer, infected right foot pressure ulcer, acute osteomyelitis of right foot, acute right lower extremity cellulitis Forms: - Medication Reconciliation Form sp4 - SBAR form sp4 - Leadership Thank You Letter sp4 Critical care time excluding procedures: 22:21 Critical care time: Bedside Care: 36 minutes, Consultation: 12 minutes. Total time: 48 sp4 minutes Signatures: Dispatcher [employer] Seema Amezcua FNP-Neto Powell MD MD sp4 Estefani Camacho, RN RN me1 Damaris Roman [facility] Jen Betancur RN RN br2 Corrections: (The following items were deleted from the chart) 08/16 21:57 21:57 BASIC METABOLIC PANEL+C.LAB.BRZ ordered. EDIA EDMS 21:57 21:57 BLOOD CULTURE*+BA.LAB.BRZ ordered. EDMS EDMS 21:57 21:57 CBC+H.LAB.BRZ ordered. EDMS EDMS 21:57 21:57 CREATINE PHOSPHOKINASE+C.LAB.BRZ ordered. EDMS EDMS 21:57 21:57 HEPATIC FUNCTION+C.LAB.BRZ ordered. EDMS EDMS 21:57 21:57 LIPASE+C.LAB.BRZ ordered. EDMS EDMS 21:57 21:57 MAGNESIUM+C.LAB.BRZ ordered. EDMS EDMS 21:57 21:57 PROBNP+C.LAB.BRZ ordered. EDMS EDMS 21:57 21:57 PROTIME (+INR)+COAG.LAB.BRZ ordered. EDMS EDMS 21:57 21:57 PTT, ACTIVATED+COAG.LAB.BRZ ordered. EDMS EDMS 21:57 21:57 Chest Single View+RAD.RAD.BRZ ordered. EDMS EDMS 21:57 21:57 LACTATE+C.LAB.BRZ ordered. EDMS EDMS 21:57 21:57 C-REACTIVE PROTEIN+C.LAB.BRZ ordered. EDMS EDMS 21:57 21:57 Foot Right 3 View+RAD.RAD.BRZ ordered. EDMS EDMS 22:16 21:44 Infectious Disease History: Denies. me1 me1 23:48 23:48 Home sp4 sp4 23:48 23:48 new sp4 sp4 23:48 23:48 have improved sp4 sp4 23:48 23:48 Stable sp4 sp4 23:48 23:48 Osteomyelitis, unspecified sp4 sp4 23:48 23:48 COPD/ Chronic obstructive pulmonary disease with (acute) exacerbation sp4 sp4 23:48 23:48 Right lower extremity cellulitis, history of right foot transmetatarsal sp4 amputation, chronic right foot pressure ulcer, right foot osteomyelitis, infected right foot pressure ulcer sp4 08/17 01:02 08/16 23:50 sp4 kmf
--- NOTE | 2024-08-16 23:49 | ER ---
Nurse's Notes [facility] Name: Karlos Leblanc Age: 58 yrs Sex: Male : 1965 Arrival Date: 08/16/2024 Time: 21:36 Bed 12 Private MD: Diagnosis: Osteomyelitis, unspecified;COPD/ Chronic obstructive pulmonary disease with (acute) exacerbation;History of transmetatarsal right foot amputation, chronic right foot pressure ulcer, infected right foot pressure ulcer, acute osteomyelitis of right foot, acute right lower extremity cellulitis Presentation: 08/16 21:39 Chief complaint: EMS states: toned out to motel for seizures over the past couple of me1 days. Patient reports he has had a lot of anxiety/stress that is causing the seizures. States he recently got kicked out of [facility] and is living in a motel. Has chronic wounds to both legs that have MRSA and "flesh eating disease in them". Hx amputation of all toes on Right foot and a Left BKA. Patient has been incontinent of bowel. States pain is 7/10 to bilateral legs. Coronavirus screen: Vaccine status: Patient reports receiving the 2nd dose of the covid vaccine. Ebola Screen: No symptoms or risks identified at this time. Initial Sepsis Screen: Does the patient meet any 2 criteria? HR > 90 bpm. Risk Assessment: Do you want to hurt yourself or someone else? Patient reports no desire to harm self or others. Onset of symptoms is unknown. 21:39 Method Of Arrival: EMS: [facility] or1 21:39 Acuity: KENIA 3 me1 Triage Assessment: 21:44 General: Appears unkempt, Behavior is cooperative, appropriate for age, agitated. Pain: me1 Complains of pain in right leg and left leg Pain does not radiate. Pain currently is 7 out of 10 on a pain scale. Quality of pain is described as aching, Pain began years ago. Is continuous. EENT: No signs and/or symptoms were reported regarding the EENT system. Neuro: Level of Consciousness is awake, alert, obeys commands, Oriented to person, place, time, situation, Appropriate for age Seizure activity reported prior to arrival. patient reports he has been having seizures over the past couple of days due to increased stress. Cardiovascular: Patient's skin is warm and dry. Respiratory: Airway is patent Respiratory effort is even, unlabored, Respiratory pattern is regular, symmetrical. Derm: Wound noted right leg and left leg. Musculoskeletal: Amputation of left below the knee and right transmetatarsal amputation. 21:44 GI: incontinent of stool before arrival. : No signs and/or symptoms were reported me1 regarding the genitourinary system. Historical: - Allergies: 21:44 NKDA; me1 - PMHx: 21:44 Chronic obstructive lung disease; Myocardial infarction; Hypertension; vascular disease me1 (Right toes amputati); Seizures; - PSHx: 21:44 cardiac stents; Right toes amputation; Left Leg Amputation (below the knee); me1 - Immunization history:: Adult Immunizations unknown. - Infectious Disease History:: MRSA (w/in 1 year), "flesh eating disease". - Social history:: Smoking status: Patient reports the use of cigarette tobacco products, smokes one pack cigarettes per day. - Family history:: not pertinent. Screenin:48 [facility] Fall Risk Assessment (Adult) History of falling in the last 3 months, me1 including since admission No falls in past 3 months (0 pts) Confusion or Disorientation No (0 pts) Intoxicated or Sedated No (0 pts) Impaired Gait Yes (1 pt) Mobility Assist Device Used Yes (1 pt) Altered Elimination Yes (1 pt) Score/Fall Risk Level 3 or more points = High Risk Maintained a safe environment, Provided non-skid footwear, Hourly rounding (assess needs \\T\\ fall precautionary measures) done. Abuse screen: Denies threats or abuse. Nutritional screening: No deficits noted. Tuberculosis screening: No symptoms or risk factors identified. Assessment: 21:48 General: See triage assessment. me1 08/17 00:45 Reassessment: Patient and/or family updated on plan of care and expected duration. Pain br2 level reassessed. Patient is alert, oriented x 3, equal unlabored respirations, skin warm/dry/pink. Patient states feeling better. Patient states symptoms have improved. Vital Signs: 08/16 21:39 BP 153 / 82; Pulse 111; Resp 20; Temp 98.4; Pulse Ox 100% ; Weight 104.33 kg; Height 6 me1 ft. 1 in. ; Pain 7/10; 22:00 BP 127 / 75; Pulse 99; Resp 20; Pulse Ox 100% ; me1 23:00 BP 118 / 69; Pulse 102; Resp 20; Pulse Ox 100% ; me1 23:30 BP 115 / 89; Pulse 100; Resp 19; Pulse Ox 100% ; me1 08/17 01:25 BP 129 / 94; Pulse 89; Resp 18 S; Temp 97.1(TE); Pulse Ox 100% on R/A; br2 08/16 21:39 Body Mass Index 30.34 (104.33 kg, 185.42 cm) me1 08/16 21:39 Pain Scale: Adult me1 [facility] Coma Score: 08/16 21:44 Eye Response: spontaneous(4). Motor Response: obeys commands(6). Verbal Response: me1 oriented(5). Total: 15. 08/17 22:15 Eye Response: spontaneous(4). Motor Response: obeys commands(6). Verbal Response: sp4 oriented(5). Total: 15. ED Course: 08/16 21:38 Patient arrived in ED. me1 21:43 Triage completed. me1 21:44 Arm band placed on Patient placed in an exam room. me1 21:48 Patient has correct armband on for positive identification. Bed in low position. Call [facility] light in reach. Side rails up X2. Seizure precautions initiated. Provided Education on: POC. Verbalized understanding.. 21:48 No provider procedures requiring assistance completed. me1 21:49 Neto Cornelius MD is Attending Physician. sp4 22:03 Estefani Camacho, TAVO is Primary Nurse. me1 22:26 XRAY CXR (1 view) In Process Unspecified. EDMS 22:26 Foot Right 3 View XRAY In Process Unspecified. EDMS 22:34 Initial lab(s) drawn, by or, sent to lab. First set of blood cultures drawn by or. me1 22:39 Inserted saline lock: 22 gauge in right forearm, using aseptic technique. me1 22:43 Second set of blood cultures drawn by or. me1 23:47 Noah Gil MD is Referral Physician. sp4 23:49 Noah Gil MD is Hospitalizing Provider. sp4 08/17 00:09 Diet tray given. br2 02:48 Patient admitted, IV remains in place. br2 Administered Medications: 08/16 23:07 Drug: Albuterol Inhalation 2.5 mg Inhalation every 20 minutes x3 Route: Inhalation; me1 23:07 Drug: Ipratropium Inhalation Aerosol 0.5 mg Inhalation once; Every 20 min for a total me1 of 3 treatments x3 Route: Inhalation; 23:07 Drug: MethylPrednisoLONE IVP 125 mg IVP once Route: IVP; Site: right forearm; me1 23:48 Follow up: Response: No adverse reaction me1 23:07 Drug: NS 0.9% IV 1000 ml IV at 1000 ml once; to be given as a bolus over 60 minutes me1 Route: IV; Rate: 1000 ml; Site: right forearm; 23:07 Drug: morphine IVP or IV 6 mg IVP once over 4 mins Route: IVP; Infused Over: 4 mins; me1 Site: right forearm; 23:44 Follow up: Response: No adverse reaction; Pain is decreased me1 23:07 Drug: Ondansetron IVP 4 mg IVP once; over 2 minutes Route: IVP; Site: right forearm; me1 23:44 Follow up: Response: No adverse reaction; Nausea is decreased me1 23:07 Drug: Cefepime IVPB 2 grams IVPB at 200 ml/hr once over 30 mins; (mix in NS 100 mL) me1 Route: IVPB; Rate: 200 ml/hr; Infused Over: 30 mins; Site: right forearm; 23:43 Follow up: Response: No adverse reaction; IV Status: Completed infusion me1 23:08 Drug: Dextromethorphan-Guaifenesin PO Liquid 10 mg-100 mg/5 mL 10 ml PO once Route: PO; me1 23:44 Follow up: Response: No adverse reaction me1 23:08 Drug: Tessalon Perle PO 200 mg PO once Route: PO; me1 23:44 Follow up: Response: No adverse reaction me1 23:27 Drug: Albuterol Inhalation 2.5 mg Inhalation every 20 minutes x3 Route: Inhalation; br2 23:27 Drug: Ipratropium Inhalation Aerosol 0.5 mg Inhalation once; Every 20 min for a total me1 of 3 treatments x3 Route: Inhalation; 23:44 Drug: vancoMYCIN IVPB 2 grams IVPB at calculated rate once Route: IVPB; Rate: me1 calculated rate; Site: right forearm; 08/17 02:49 Follow up: Response: No adverse reaction; IV Status: Infusion continued upon admission; br2 IV Intake: 400ml 08/16 23:47 Drug: Albuterol Inhalation 2.5 mg Inhalation every 20 minutes x3 Route: Inhalation; me1 23:47 Drug: Ipratropium Inhalation Aerosol 0.5 mg Inhalation once; Every 20 min for a total me1 of 3 treatments x3 Route: Inhalation; 23:52 Drug: Potassium PO Effervescent Tablet 50 mEq PO once; dissolve in 4 ounces of water or me1 juice Route: PO; 08/17 00:08 Follow up: Response: No adverse reaction br2 Medication: 08/16 21:48 VIS not applicable for this client. me1 Intake: 08/17 02:49 IV: 400ml; Total: 400ml. br2 Output: 00:09 Urine: 400ml (Voided); Total: 400ml. br2 Outcome: 08/16 23:48 Discharge ordered by . sp4 23:50 Decision to Hospitalize by Provider. sp4 08/17 02:15 Admitted to Med/surg accompanied by tech, via stretcher, room 403, br2 Condition: improved Instructed on the need for admit, 02:48 Patient left the ED. br2 Signatures: Dispatcher [employer] EDNeto Brar MD MD sp4 Estefani Camacho RN RN me1 Jen Betancur RN RN br2 Corrections: (The following items were deleted from the chart) 08/16 21:44 21:39 Chief complaint: EMS states: toned out to motel for seizures over the past couple me1 of days. States he recently got kicked out of [facility] and is living in a motel. Has chronic wounds to both legs that have MRSA and "flesh eating disease in them". Hx amputation of all toes on Right foot and a Left BKA. Patient has been incontinent of bowel. States pain is 7/10 to bilateral legs me1 21:48 21:44 GI: No signs and/or symptoms were reported involving the gastrointestinal system. me1 me1 21:48 21:44 : No signs and/or symptoms were reported regarding the genitourinary system. me1me1 22:16 21:44 Infectious Disease History: Denies. me1 me1
[2024-08-16] MEDS ORDERED: POTASSIUM 25 MEQ EFFERV TAB ONE (23:51)
--- NOTE | 2024-08-17 00:13 | P.HP ---
Certification for Inpatient Patient admitted to: Inpatient With expected LOS: >2 Midnights Practitioner: I am a practitioner with admitting privileges, knowledge of patient current condition, hospital course, and medical plan of care. Services: Services provided to patient in accordance with Admission requirements found in Title 42 Section 412.3 of the Code of Federal Regulations Patient History Date of Service: 08/17/24 Reason for admission: Right foot pain History of Present Illness: 58 yrs old Male history of alcohol use disorder, tobacco use disorder, PAD, seizure disorder, hypertension, hyperlipidemia, CAD, previous left BKA, right TMA amputation, history of CAD status post PCI, COPD presents emergency department chief complaint of foot pain and shortness of breath. Patient denies any chest pain. Denies any fever or chills. No nausea vomiting or diarrhea. He was having increasing pain to his right foot and came to the emergency department, he was evaluated in the emergency department and found to have an elevated lactic acid and admitted for further evaluation and management of suspected cellulitis/sepsis of the right foot Allergies No Known Allergies Allergy (Verified 11/17/23 03:52) Home medications list reviewed: Yes Home Medications: Buspirone HCl 2 tab PO BID #60 tab 01/21/24 Escitalopram Oxalate 20 mg PO DAILY #30 tab 01/21/24 Gabapentin [Neurontin*] 200 mg PO TID #120 cap 01/21/24 Multivit-Min/Iron/Folic Acid/K [Multi-Day Plus Minerals Tablet] 1 tab PO DAILY #30 tab 01/21/24 Sertraline [Zoloft*] 100 mg PO DAILY #30 tab 01/21/24 methocarbamoL [Methocarbamol] 500 mg PO TID #90 tab 01/21/24 Collagenase [Santyl Ointment*] 1 appl TOP DAILY #1 tube 03/12/24 Hydrocodone 7.5/APAP 325 [[place] 7.5/325 mg*] 1 tab PO Q6HP PRN #20 tab 03/12/24 Aspirin [Aspirin EC 81 MG] 81 mg PO DAILY 04/16/24 Atorvastatin Calcium 40 mg PO BEDTIME 04/16/24 Clopidogrel Bisulfate [Plavix] 75 mg PO DAILY 04/16/24 PHENYTOIN ER Cap [Dilantin ER Cap*] 300 mg PO BEDTIME 04/16/24 levETIRAcetam [Keppra*] 1,500 mg PO BID 04/16/24 Collagenase [Santyl Ointment*] 1 appl TOP DAILY tube 05/01/24 Hydrocodone 10/APAP 325 [[place] 10325*] 1 tab PO Q6H PRN tab 05/01/24 - Past Medical/Surgical History Diabetic: No Past Medical History: Reviewed- Non-Contributory -: HTN -: CHF, diastolic dysfunction -: COPD -: CAD -: PVD -: Left & right partial foot amputation -: History of osteomyelitis -: History of drug use -: Alcohol abuse -: Tobacco abuse -: GERD Past Surgical History: Reviewed- Non-Contributory -: Rt great toe & 2nd toe amputated-Dec 2015 -: Left partial foot amputation-January 2019 -: right partial foot amputation Psychosocial/ Personal History: Was previously staying at home in [place], reportedly recently evicted - Family History Family History: Reviewed- Non-Contributory - Family History Father -: Cancer Mother -: Cancer - Social History Smoking Status: Current some day smoker Alcohol use: No CD- Drugs: No Caffeine use: Yes Review of Systems 10-point ROS is otherwise unremarkable Physical Examination - Vital Signs Temperature: 97.8 F Blood Pressure: 138/76 Pulse: 78 Respirations: 18 Pulse Ox (%): 94 - Physical Exam General: Alert, Oriented x3, Mild distress HEENT: Atraumatic, Normocephalic Neck: Supple Respiratory: Clear to auscultation bilaterally, Expiratory wheezes Cardiovascular: Regular rate/rhythm, Normal S1 S2 Capillary refill: <2 Seconds Gastrointestinal: Soft and benign, W/out hepatosplenomegaly, No tenderness Musculoskeletal: No clubbing, No swelling Integumentary: No rashes, Tenderness/swelling, Erythema, Warmth, Other (Status post BKA left, TMA right) Neurological: Other (Alert awake nonfocal) Lymphatics: No axilla or inguinal lymphadenopathy - Studies Laboratory Data (last 24 hrs) 08/16/24 08/16/24 08/16/24 22:34 22:34 22:34 WBC 10.50 Hgb 11.6 L Hct 33.5 L Plt Count 176 PT 12.4 INR 1.09 APTT 34.0 Sodium 128 L Potassium 2.9 L BUN 13 Creatinine 0.77 Glucose 101 Magnesium 2.3 Total Bilirubin 0.2 AST 39 H ALT 33 Alkaline Phosphatase 86 Lipase 69 Assessment and Plan - Plan Right foot cellulitis with possible osteomyelitis Status post TMA amputation Start on IV antibiotic Pain control Monitor closely on telemetry Will obtain cultures Surgical consult COPD in mild exacerbation Bronchodilators Monitor closely Oxygen supplementation as needed Will continue home medications and titrate as needed Chronic diastolic ingestive heart failure Hypertension Hyperlipidemia PAD Tobacco use disorder Continue home medications, counseled on need for tobacco cessation DVT PPX: Lovenox Code status: Full Discharge Plan: Home Plan to discharge in: 48 Hours - Advance Directives Does patient have a Living Will: No Does patient have a Durable POA for Healthcare: No - Code Status/Comfort Care Code Status: Full Code Time Spent Managing Pts Care (In Minutes): 54
[2024-08-17] MEDS ORDERED: ALBUTEROL 2.5 MG/3 ML NEB SOL NEB PRN (00:20)
[2024-08-17] MEDS ORDERED: ACETAMINOPHEN 325 MG TABLET PO PRN (00:20)
[2024-08-17] MEDS ORDERED: ONDANSETRON 4 MG/2 ML VIAL IV PRN (00:20)
[2024-08-17] MEDS ORDERED: IPRATROPIUM BROM 0.5MG/2.5ML NEB PRN (00:20)
[2024-08-17] MEDS ORDERED: VANCOMYCIN 1 GM in NA CHLORIDE 0.9% 250 ML IVPB SCH (01:00)
[2024-08-17] MEDS ORDERED: VANCOMYCIN 2 GM in NA CHLORIDE 0.9% 500 ML IVPB SCH ×2 (01:00→09:00)
[2024-08-17] MEDS: NS KCL 40MEQ 40 MEQ/1,000 ML BAG IV SCH (01:00)
[2024-08-17] MEDS: NS KCL 20MEQ 1,000 ML IV ONE (02:39)
[2024-08-17] MEDS: MORPHINE 2 MG/ML SYR IV PRN (02:48)
[2024-08-17 03:14] VITALS: BMI 29.8
[2024-08-17] MEDS: NS KCL 20MEQ 20 MEQ/1,000 ML BAG IV SCH ×2 (03:20→21:00)
[2024-08-17] MEDS ORDERED: CEFEPIME 1 GM in NA CHLORIDE 0.9% 100 ML IV SCH (09:00)
[2024-08-17] MEDS: CEFEPIME 2 GM in NA CHLORIDE 0.9% 100 ML IV SCH (09:17)
[2024-08-17] MEDS: VANCOMYCIN 1.75 GM in NA CHLORIDE 0.9% 500 ML IVPB SCH (09:17)
[2024-08-17] MEDS: KCL 20 MEQ/100 mL IVPB 20 MEQ/100 ML BAG IV SCH (09:44)
[2024-08-17] MEDS: HYDROCODONE/APAP 5/325 MG TAB PO PRN (14:37)
[2024-08-17] MEDS: levETIRAcetam 500 MG TAB PO SCH (20:26)
[2024-08-17] MEDS: PHENYTOIN ER 100 MG CAP PO SCH (20:27)
--- NOTE | 2024-08-17 20:48 | P.PN ---
Subjective Date of Service: 08/17/24 Patient is clinically doing well. Patient denies being suicidal. Patient had a one-to-one sitter put out discontinued this. Patient is stating that he is trying to get arranged to go to [facility] as he has been talking to the administrators there. Patient will need debridement of his foot. Keep n.p.o. after midnight. Review of Systems 10-point ROS is otherwise unremarkable Physical Examination - Vital Signs Temperature: 98.2 F Blood Pressure: 158/83 Pulse: 110 Respirations: 18 Pulse Ox (%): 99 - Physical Exam General: Alert, In no apparent distress, Oriented x3 HEENT: EOMI Respiratory: Clear to auscultation bilaterally, Normal air movement Cardiovascular: Regular rate/rhythm, Normal S1 S2 Gastrointestinal: Normal bowel sounds, No tenderness Musculoskeletal: No tenderness Integumentary: No rashes Neurological: Normal speech, Normal tone, Normal affect Lymphatics: No axilla or inguinal lymphadenopathy - Studies Laboratory Data (last 24 hrs) 08/16/24 08/16/24 08/16/24 22:34 22:34 22:34 WBC 10.50 Hgb 11.6 L Hct 33.5 L Plt Count 176 PT 12.4 INR 1.09 APTT 34.0 Sodium 128 L Potassium 2.9 L BUN 13 Creatinine 0.77 Glucose 101 Magnesium 2.3 Total Bilirubin 0.2 AST 39 H ALT 33 Alkaline Phosphatase 86 Lipase 69 Medications List Reviewed: Yes Assessment & Plan - Problems (Diagnosis) (1) Osteomyelitis Current Visit: No Status: Acute (2) COPD (chronic obstructive pulmonary disease) Current Visit: No Status: Acute (3) Depression Current Visit: No Status: Acute (4) Hypokalemia Onset Date: 11/12/17 Current Visit: No Status: Acute (5) Peripheral neuropathy Onset Date: 01/07/16 Current Visit: No Status: Acute (6) Seizure disorder Current Visit: No Status: Acute (7) Anemia Onset Date: 01/07/16 Current Visit: No Status: Chronic Qualifiers: Anemia type: other cause (8) CAD (coronary artery disease) Onset Date: 03/15/17 Current Visit: No Status: Chronic Qualifiers: Coronary Disease-Associated Artery/Lesion type: unspecified vessel or lesion type [place] vs. transplanted heart: [place] heart Associated angina: without angina Qualified Code(s): I25.10 - Atherosclerotic heart disease of [place] coronary artery without angina pectoris (9) CHF (congestive heart failure) Onset Date: 03/15/17 Current Visit: No Status: Chronic (10) COPD (chronic obstructive pulmonary disease) Onset Date: 03/15/17 Current Visit: No Status: Chronic Qualifiers: COPD type: chronic bronchitis Chronic bronchitis type: unspecified Qualified Code(s): J42 - Unspecified chronic bronchitis (11) Hyperlipemia Current Visit: No Status: Chronic Qualifiers: Hyperlipidemia type: unspecified Qualified Code(s): E78.5 - Hyperlipidemia, unspecified (12) Hypertension Onset Date: 01/07/16 Current Visit: No Status: Chronic Qualifiers: Hypertension type: essential hypertension Qualified Code(s): I10 - Essential (primary) hypertension (13) Atherosclerosis of [place] artery of leg with ulceration of foot Current Visit: No Status: Ruled-out - Plan Plan: 1. Osteomyelitis of the right leg/foot; continue with IV antibiotics and pain control. General surgery consultation for debridement in a.m. 2. Diabetic foot wound with neuropathy; continue with gabapentin and continue with strict blood sugar control 3. COPD; continue with inhaler therapy 4. CHF; continue with cardiac meds 5. CAD; continue with antiplatelet therapy and statin therapy 6. Chronic kidney disease; continue monitoring renal function 7. GI and DVT prophylax Discharge Plan: [facility] Plan to discharge in: Greater than 2 days - Advance Directives Does patient have a Living Will: No Does patient have a Durable POA for Healthcare: No - Code Status/Comfort Care Code Status: Full Code Critical Care: No Time Spent Managing PTS Care (In Minutes): 35
[2024-08-17] MEDS: POTASSIUM CL SA 10 MEQ TAB PO SCH (20:58)
[2024-08-17] MEDS: SPIRONOLACTONE 25 MG TABLET PO SCH (20:58)
[2024-08-17] MEDS: SODIUM BICARB 325 MG TAB PO SCH (20:58)
[2024-08-17] MEDS: NA CHLORIDE 0.9% 500 ML IV ONE (20:59)
[2024-08-18 07:59] LABS: Absolute Basophils 0.1 K/uL (0-0.5); Absolute Eosinophils 0.2 K/uL (0-0.5); Absolute Monocytes 0.8 K/uL (0.1-1.3); Absolute Neutrophil 4.9 K/uL (1.8-8.0); Basophils % 0.7 % (0-1.3); Eosinophils % 2.9 % (0-4.4); Hematocrit 32.8 % (39.6-49.0); Hemoglobin 11.3 g/dL (13.6-17.9); Lymphocytes % 25.3 % (15.3-44.8); MCH 31.6 pg (27.0-35.0); MCHC 34.4 g/dL (32.0-36.0); MCV 91.7 fL (80-100); MPV 6.9 fL (7.6-11.3); Monocytes % 10.2 % (3.3-12.3); Neutrophils % 60.9 % (41.7-73.7); Platelets 178 thou/uL (152-406); RBC Red Blood Cell Count 3.57 M/uL (4.33-5.43); Red Cell Distribution Width 16.8 % (12.1-15.2)
[2024-08-18 08:30] LABS: Albumin 2.9 g/dL (3.4-5.0); Albumin/Globulin Ratio 0.6 (1.1-1.8); Bilirubin Total 0.3 mg/dL (0.2-1.0); Globulin 4.5 g/dL (2.3-3.5); Magnesium 1.8 mg/dL (1.6-2.4); Protein, Total 7.4 g/dL (6.4-8.2)
[2024-08-18] MEDS: ESCITALOPRAM 20 MG TAB PO SCH (08:42)
[2024-08-18] MEDS: Ringers Lactate 1,000 ML IV ONE (12:30)
[2024-08-18] MEDS ORDERED: ONDANSETRON 4 MG/2 ML VIAL ONE (12:33)
[2024-08-18] MEDS ORDERED: KETOROLAC 30 MG/ML INJ ONE (12:33)
[2024-08-18] MEDS ORDERED: dexAMETHasone 10 MG/ML VIAL ONE (12:33)
[2024-08-18] MEDS ORDERED: MIDAZOLAM HCL 2 MG/2 ML INJ ONE (12:33)
[2024-08-18] MEDS ORDERED: propofoL 200 MG/20 ML VIAL IV ONE (12:33)
[2024-08-18] MEDS ORDERED: FENTANYL CITR 100 MCG/2 ML ONE (12:33)
[2024-08-18] MEDS ORDERED: LIDOCAINE 2% MPF 5 ML VIAL ONE (12:33)
[2024-08-18] MEDS: LIDOCAINE HCL/EPINEPHRINE 20 ML MDV ONE (12:54)
--- NOTE | 2024-08-18 13:59 | P.OP ---
Preoperative diagnosis: RIGHT Foot 5th Toe Osteomyelitis Postoperative diagnosis: RIGHT Foot 5th Toe Osteomyelitis Primary procedure: Debridement of RIGHT Foot 5th Toe Anesthesia: GETA Estimated blood loss: <2cc Specimen: Cultures, Debridement Tissue Findings: Exposed metatarsal @ 5th Digit Complications: None Transferred to: Recovery Room Condition: Good
--- NOTE | 2024-08-18 15:18 | OP ---
Date of Procedure: 08/18/2024 Surgeon: Faizan Lay MD, Preoperative Diagnosis: Right foot fifth toe osteomyelitis. Postoperative Diagnosis: Right foot fifth toe osteomyelitis. Procedure Performed: Debridement of the right foot fifth metatarsal. Anesthesia: General endotracheal. Estimated Blood Loss: Less than 2 cc. Specimens: Culture sent for aerobic and anaerobic speciation and debridement tissue. Findings: Exposed metatarsal at the fifth digit. Complications: None. Disposition: The patient transferred to recovery room in good condition. Brief History Of Present Illness: The patient is a 58-year-old male known to me from previous admiss ions. He had a previous transmetatarsal amputation, which he developed chronic wounds from. He had had some issues with being homeless for temporary periods of time. He was hospitalized and placed in multiple different facilities, and received wound care and multiple debridements with significant im provement, thereafter. However, he would go to other facilities, and for whatever reason, his wounds would recur during the convalescence at those particular facilities. He was most recently at [facility] when he developed worsening pains, redness, swelling, tenderness of his fifth metatarsal. He is unsure of his wound care plan while being at the facility. He now presents for that above issu e. X-ray confirmed osteomyelitis of the exposed fifth digit. He has had a BKA on the contralateral leg. Procedure In Detail: After informed consent was obtained, the patient was prepped and draped in the usual sterile fashion after adequate anesthesia was achieved. I essentially trimmed off all nonviabl e tissue circumferentially around the area. There was a cap of necrotic tissue over the exposed fift h metatarsal bone which I ultimately using combination of sharp dissection and some blunt d issection ultimately removing this cap of nonviable bone. It was cultured for both aerobic and anaer obic speciation, sent off for pathologic examination. The area was copiously irrigated and I debride d down using a combination of rasp, rongeur to get down to good bleeding healthy bone. The bone was osteoporotic as a whole. The patient stated he does not want any higher level amputations and only agree to localize debridement of this area as described. As such, I did not proceed with much deeper dissection given the patient's wishes. At this point, the area was copiously irrigated. All tissue was left viable and bleeding healthy at the end of the procedure. At this point, electrocautery was used to minimally achieve hemostasis in the soft tissue. All the bleeding was controlled with simpl e pressure. The wound was then packed with sterile dressing and I wrapped, elevated. The patient to lerated the procedure without incident or complication and transferred to PACU in good condition. Al l counts were correct at the end of the case. ANNA/RENATO Voice ID: [id number] Report ID: [id number]
[2024-08-18] MEDS: VANCOMYCIN 1.25 GM in NA CHLORIDE 0.9% 250 ML IVPB SCH (21:11)
--- NOTE | 2024-08-19 06:21 | P.PN ---
Date of Service: 08/18/24 Subjective Patient scheduled to go to the OR today. Wound debridement and afterwards going to custodial facility possibly at [facility]. Physical Examination - Vital Signs Reviewed - Physical Exam General: Alert, In no apparent distress, Oriented x3 Respiratory: Clear to auscultation bilaterally Cardiovascular: Regular rate/rhythm, Normal S1 S2 Gastrointestinal: Normal bowel sounds, No tenderness Musculoskeletal: No tenderness Integumentary: wound to the foot Neurological: neuropathy Assessment & Plan - Problems (Diagnosis) (1) Osteomyelitis Current Visit: No Status: Acute (2) COPD (chronic obstructive pulmonary disease) Current Visit: No Status: Acute (3) Depression Current Visit: No Status: Acute (4) Hypokalemia Onset Date: 11/12/17 Current Visit: No Status: Acute (5) Peripheral neuropathy Onset Date: 01/07/16 Current Visit: No Status: Acute (6) Seizure disorder Current Visit: No Status: Acute (7) Anemia Onset Date: 01/07/16 Current Visit: No Status: Chronic Qualifiers: Anemia type: other cause (8) CAD (coronary artery disease) Onset Date: 03/15/17 Current Visit: No Status: Chronic Qualifiers: Coronary Disease-Associated Artery/Lesion type: unspecified vessel or lesion type [place] vs. transplanted heart: [place] heart Associated angina: without angina Qualified Code(s): I25.10 - Atherosclerotic heart disease of [place] coronary artery without angina pectoris (9) CHF (congestive heart failure) Onset Date: 03/15/17 Current Visit: No Status: Chronic (10) COPD (chronic obstructive pulmonary disease) Onset Date: 03/15/17 Current Visit: No Status: Chronic Qualifiers: COPD type: chronic bronchitis Chronic bronchitis type: unspecified Qualified Code(s): J42 - Unspecified chronic bronchitis (11) Hyperlipemia Current Visit: No Status: Chronic Qualifiers: Hyperlipidemia type: unspecified Qualified Code(s): E78.5 - Hyperlipidemia, unspecified (12) Hypertension Onset Date: 01/07/16 Current Visit: No Status: Chronic Qualifiers: Hypertension type: essential hypertension Qualified Code(s): I10 - Essential (primary) hypertension (13) Atherosclerosis of [place] artery of leg with ulceration of foot Current Visit: No Status: Ruled-out - Plan Continue with plan of care as mentioned below: 1. Osteomyelitis of the right leg/foot; continue with IV antibiotics and pain control. s/p debridement today 2. Diabetic foot wound with neuropathy; continue with gabapentin and continue with strict blood sugar control; ID consult 3. COPD; continue with inhaler therapy 4. CHF; continue with cardiac meds 5. CAD; continue with antiplatelet therapy and statin therapy 6. Chronic kidney disease; continue monitoring renal function 7. GI and DVT prophylaxis Discharge Plan: Skilled Nursing Plan to discharge in: Greater than 2 days - Advance Directives Does patient have a Living Will: No Does patient have a Durable POA for Healthcare: No - Code Status/Comfort Care Code Status: Full Code Critical Care: No Time Spent Managing PTS Care (In Minutes): 35
--- NOTE | 2024-08-19 14:53 | CON ---
Date of Consultation: 08/18/2024 History Of Present Illness: The patient was seen for osteomyelitis of the foot. The patient is know n to me from previous admissions. He has significant history of alcohol disorder and tobacco use dis order, peripheral arterial disease, seizure disorder, hypertension, hyperlipidemia, coronary artery d isease, left BKA, right TMA, with coronary artery disease, COPD, coming to the emergency room with th e right foot pain and shortness of breath. Denies any other problems. The patient currently on vanc omycin and cefepime. X-ray of his foot done on 08/16 shows the patient has amputation involving almo st all of each metatarsal and ulceration involving the soft tissue lateral foot and erosion involving the residual fifth metatarsal suspicious of osteomyelitis. Past Medical History: As per HPI. Social History: Tobacco positive. Alcohol positive. Family History: Noncontributory. Medications: Cefepime, vancomycin. See MARs for other medications. Allergies: NO KNOWN DRUG ALLERGIES. Review of Systems: A 10-point review was performed. Physical Examination: General: This is a 58-year-old male, lying in bed, not in any acute cardiopulmonary distress. Vital Signs: Temperature 98, pulse 112, respirations 19, blood pressure 117/65. HEENT: Unremarkable. Neck: Supple. Lungs: Basal crackles. Heart: S1, S2. Regular. Abdomen: Soft, nontender. Bowel sounds present. Extremities: No edema. Right foot wound noted. Laboratory Data: Shows WBC 8.8, hemoglobin 11.3, platelets are 178. Chemistry shows BUN of 7, creat inine 0.7. Lactic acid 5.4, albumin is 2.9. Assessment And Plan: 1. Right foot osteomyelitis, status post transmetatarsal amputation, peripheral vascular disease and arterial ulcers. 2. Chronic obstructive pulmonary disease. 3. Peripheral neuropathy. 4. Seizure disorder. 5. Anemia of chronic disease. 6. Lactic acidosis. 7. Moderate protein-calorie malnourishment. Continue current treatment with vancomycin and cefepime. We will follow the patient as needed. Thank you, Dr. Ramirez, for consult. NF/MODL Voice ID: [id number] Report ID: [id number]
--- NOTE | 2024-08-19 15:41 | P.PN ---
Subjective Date of Service: 08/19/24 Chief Complaint: Right foot pain Subjective: No chest pain or shortness of breath. No nausea or vomiting. No abdominal pain. No obvious bleeding. Looks comfortable in the bed. Objective: General appearance: Alert and comfortable CVS: Normal S1 and S2 Lungs: Clear to auscultation bilaterally Abdomen: Soft, bowel sounds present, no tenderness Extremities: No lower extremity edema. Wound on the right foot, seems to be healing well. Physical Examination - Vital Signs Temperature: 99 F Blood Pressure: 101/64 Pulse: 105 Respirations: 16 Pulse Ox (%): 100 - Studies Medications List Reviewed: Yes Assessment And Plan - Plan 1. Osteomyelitis of the right leg/foot; continue with IV antibiotics and pain control. s/p debridement. ID consult requested 2. Diabetic foot wound with neuropathy; continue with gabapentin and continue with strict blood sugar control 3. COPD; continue with inhaler therapy 4. CHF, CAD: continue with cardiac meds 5. Hypertension: Continue home medications. 6. Depression: Continue home meds. 7. Seizure Disorder: Continue Keppra. 8. Chronic anemia: Monitor closely. Plan discussed with The patient and case management team.
--- NOTE | 2024-08-19 18:53 | PN ---
Subjective: The patient lying in bed. Has a wound VAC to his foot after surgical debridement by robert gical team. Objective: Vital Signs: Temperature 97, pulse 85, respirations 18, blood pressure 127/60. Lungs: Basal crackles. Heart: S1, S2. Regular. Abdomen: Soft, nontender. Bowel sounds present. Extremities: No edema. Wound VAC in place. Laboratory Data: Reviewed. Assessment And Plan: Wound cultures are growing 3+ gram-negative rods. Patient currently on cefepim e and vancomycin. Peripheral vascular disease. Peripheral neuropathy. Anemia of chronic disease. Lactic acidosis. Continue current treatment for total of 6 weeks. We will follow the patient as needed. [facility]. NF/MODL Voice ID: [id number] Report ID: [id number]
[2024-08-20 08:01] LABS: Absolute Basophils 0.1 K/uL (0-0.5); Absolute Eosinophils 0.4 K/uL (0-0.5); Absolute Lymphocytes (CBC) 2.7 K/uL (0.7-4.9); Absolute Monocytes 0.6 K/uL (0.1-1.3); Absolute Neutrophil 2.6 K/uL (1.8-8.0); Basophils % 1.9 % (0-1.3); Eosinophils % 6.2 % (0-4.4); Hematocrit 33.2 % (39.6-49.0); Hemoglobin 11.2 g/dL (13.6-17.9); MCH 31.6 pg (27.0-35.0); MCHC 33.8 g/dL (32.0-36.0); MCV 93.5 fL (80-100); Monocytes % 9.7 % (3.3-12.3); Neutrophils % 40.2 % (41.7-73.7); Platelets 193 thou/uL (152-406); RBC Red Blood Cell Count 3.55 M/uL (4.33-5.43); Red Cell Distribution Width 16.3 % (12.1-15.2)
[2024-08-20 08:14] LABS: Anion Gap 8.5 mEq/L (5.0-15.0); Magnesium 2.2 mg/dL (1.6-2.4); Potassium 4.5 mEq/L (3.5-5.1)
[2024-08-20] MEDS: VANCOMYCIN 1 GM in NA CHLORIDE 0.9% 250 ML IVPB SCH (09:05)
[2024-08-20] MEDS: Meropenem 1,000 MG in NA CHLORIDE 0.9% 100 ML IV SCH (09:11)
[2024-08-20] MEDS ORDERED: VANCOMYCIN 1.5 GM in NA CHLORIDE 0.9% 500 ML IVPB SCH (11:00)
--- NOTE | 2024-08-20 14:09 | P.PN ---
Subjective Date of Service: 08/20/24 Chief Complaint: Right foot pain Subjective: No new changes, No C/O voiced, Tolerating diet, Improving, Doing well Review of Systems 10-point ROS is otherwise unremarkable Physical Examination - Vital Signs Temperature: 98 F Blood Pressure: 141/68 Pulse: 75 Respirations: 16 Pulse Ox (%): 98 - Physical Exam General: Alert, Oriented x3 HEENT: Atraumatic, Normocephalic, PERRLA, EOMI Neck: Supple, JVD not distended Respiratory: Clear to auscultation bilaterally Cardiovascular: Regular rate/rhythm Capillary refill: <2 Seconds Gastrointestinal: Normal bowel sounds, Non-distended Integumentary: Other (wound vac to right foot) Neurological: Normal speech, Normal tone - Studies Laboratory Results WBC 10.50 thou/uL (4.3-10.9) 08/16/24 22:34 RBC 3.69 M/uL (4.33-5.43) L 08/16/24 22:34 Hgb 11.6 g/dL (13.6-17.9) L 08/16/24 22:34 Hct 33.5 % (39.6-49.0) L 08/16/24 22:34 MCV 90.9 fL (80-100) 08/16/24 22:34 MCH 31.6 pg (27.0-35.0) 08/16/24 22:34 MCHC 34.8 g/dL (32.0-36.0) 08/16/24 22:34 RDW 16.5 % (12.1-15.2) H 08/16/24 22:34 Plt Count 176 thou/uL (152-406) 08/16/24 22:34 MPV 6.9 fL (7.6-11.3) L 08/16/24 22:34 Neutrophils % 67.5 % (41.7-73.7) 08/16/24 22:34 Lymphocytes % 20.7 % (15.3-44.8) 08/16/24 22:34 Monocytes % 7.5 % (3.3-12.3) 08/16/24 22:34 Eosinophils % 3.3 % (0-4.4) 08/16/24 22:34 Basophils % 1.0 % (0-1.3) 08/16/24 22:34 Absolute Neutrophils 7.1 K/uL (1.8-8.0) 08/16/24:34 Absolute Lymphocytes 2.2 K/uL (0.7-4.9) 08/16/24: Absolute Monocytes 0.8 K/uL (0.1-1.3) 08/16/24 22: Absolute Eosinophils 0.4 K/uL (0-0.5) 08/16/24: Absolute Basophils 0.1 K/uL (0-0.5) 08/16/24 22: PT 12.4 SECONDS (10-13.0) 08/16/24: INR 1.09 08/16/24: APTT 34.0 SECONDS (27.2-37.4) 08/16/24 22:34 Sodium 128 mEq/L (136-145) L 08/16/24 22: Potassium 2.9 mEq/L (3.5-5.1) L 08/16/24: Chloride 98 mEq/L (98-107) 08/16/24: Carbon Dioxide 19 mEq/L (21-32) L 08/16/24: Anion Gap 13.9 mEq/L (5.0-15.0) 08/16/24 22: BUN 13 mg/dL (7-18) 08/16/24 22: Creatinine 0.77 mg/dL (0.70-1.30) 08/16/24 22:34 Est GFR (CKD-EPI) 103 ml/min (=/>90) 08/16/24: Glucose 101 mg/dL (74-106) 08/16/24 22: Lactic Acid 3.8 mmol/L (0.4-2.0) H* 08/16/24: Lactic Acid F/U @ 2Hr Reorder 08/16/24 23:08 Calcium 8.3 mg/dL (8.5-10.1) L 08/16/24: Magnesium 2.3 mg/dL (1.6-2.4) 08/16/24 22:34 Total Bilirubin 0.2 mg/dL (0.2-1.0) 08/16/24: Direct Bilirubin < 0.2 mg/dL (0-0.2) 08/16/24 22:34 Indirect Bilirubin 0.0 mg/dL (0.2-0.8) L 08/16/24 22:34 AST 39 U/L (15-37) H 08/16/24 22:34 ALT 33 U/L (16-61) 08/16/24 22:34 Alkaline Phosphatase 86 U/L (45-117) 08/16/24 22:34 Creatine Kinase 491 U/L (39-308) H 08/16/24 22:34 C-Reactive Protein 70.90 mg/L (<3.00) H 08/16/24 22:34 NT-Pro-B Natriuret Pep 123 pg/mL (<125) 08/16/24 22:34 Serum Total Protein 7.6 g/dL (6.4-8.2) 08/16/24 22:34 Albumin 2.9 g/dL (3.4-5.0) L 08/16/24 22:34 Globulin 4.7 g/dL (2.3-3.5) H 08/16/24 22:34 Albumin/Globulin Ratio 0.6 (1.1-1.8) L 08/16/24 22:34 Lipase 69 U/L (13-75) 08/16/24 22:34 Laboratory Tests 08/16/24 08/16/24 08/16/24 22:34 22:34 22:34 WBC 10.50 RBC 3.69 L Hgb 11.6 L Hct 33.5 L MCV 90.9 MCH 31.6 MCHC 34.8 RDW 16.5 H Plt Count 176 MPV 6.9 L Neutrophils % 67.5 Lymphocytes % 20.7 Monocytes % 7.5 Eosinophils % 3.3 Basophils % 1.0 Absolute Neutrophils 7.1 Absolute Lymphocytes 2.2 Absolute Monocytes 0.8 Absolute Eosinophils 0.4 Absolute Basophils 0.1 PT 12.4 INR 1.09 APTT 34.0 Sodium 128 L Potassium 2.9 L Chloride 98 Carbon Dioxide 19 L Anion Gap 13.9 BUN 13 Creatinine 0.77 Est GFR (CKD-EPI) 103 Glucose 101 Lactic Acid Lactic Acid F/U @ 2Hr Calcium 8.3 L Magnesium 2.3 Total Bilirubin 0.2 Direct Bilirubin < 0.2 Indirect Bilirubin 0.0 L AST 39 H ALT 33 Alkaline Phosphatase 86 Creatine Kinase 491 H C-Reactive Protein 70.90 H NT-Pro-B Natriuret Pep 123 Serum Total Protein 7.6 Albumin 2.9 L Globulin 4.7 H Albumin/Globulin Ratio 0.6 L Lipase 69 08/16/24 08/16/24 22:34 23:08 WBC RBC Hgb Hct MCV MCH MCHC RDW Plt Count MPV Neutrophils % Lymphocytes % Monocytes % Eosinophils % Basophils % Absolute Neutrophils Absolute Lymphocytes Absolute Monocytes Absolute Eosinophils Absolute Basophils PT INR APTT Sodium Potassium Chloride Carbon Dioxide Anion Gap BUN Creatinine Est GFR (CKD-EPI) Glucose Lactic Acid 3.8 H* Lactic Acid F/U @ 2Hr Reorder Calcium Magnesium Total Bilirubin Direct Bilirubin Indirect Bilirubin AST ALT Alkaline Phosphatase Creatine Kinase C-Reactive Protein NT-Pro-B Natriuret Pep Serum Total Protein Albumin Globulin Albumin/Globulin Ratio Lipase Imagings Data: Laboratory Results pathology report on 08/18/24 Right foot wound, debridement tissue: -Skin with ulceration, inflamed granulation tissue and chronic reactive changes -mall bone fragments consistent with osteomyelitis Xray right foot on 08/16/24 Amputation involves almost all of each metatarsal. An ulceration involves the soft tissue lateral foot. An erosion involves the residual fifth metatarsal suspicious for osteomyelitis Medications List Reviewed: Yes Assessment And Plan - Current Problems (Diagnosis) (1) Osteomyelitis Current Visit: No Status: Acute Qualifiers: Osteomyelitis location: foot Laterality: right - Plan Wound cultures are growing 3+ gram-negative rods with Proteus Mirailis ESBL. Will treat with meropenum for a total of 6 weeks Monitor WBC, fever Case discussed with DR. Conroy during round in agreement
--- NOTE | 2024-08-20 14:19 | RAD REPORT ---
Procedure: Chest Single View HISTORY: PICC line placement FINDINGS: A PICC line has been placed into the SVC
--- NOTE | 2024-08-20 14:53 | P.PN ---
Subjective Date of Service: 08/20/24 Chief Complaint: Right foot pain Subjective: No chest pain or shortness of breath. No nausea or vomiting. No abdominal pain. No obvious bleeding. Looks comfortable in the bed. Objective: General appearance: Alert and comfortable CVS: Normal S1 and S2 Lungs: Clear to auscultation bilaterally Abdomen: Soft, bowel sounds present, no tenderness Extremities: No right lower extremity edema. Wound on the right foot, dressing present. left leg amputation Physical Examination - Vital Signs Temperature: 98 F Blood Pressure: 141/68 Pulse: 75 Respirations: 16 Pulse Ox (%): 98 - Studies Medications List Reviewed: Yes Assessment And Plan - Plan 1. Osteomyelitis of the right leg/foot; continue with IV antibiotics and pain control. s/p debridement. ID consult requested, will need 6 weeks of IV ABX, PICC placed today 2. Diabetic foot wound with neuropathy; continue with gabapentin and continue with strict blood sugar control 3. COPD; continue with inhaler therapy 4. CHF, CAD: continue with cardiac meds 5. Hypertension: Continue home medications. 6. Depression: Continue home meds. 7. Seizure Disorder: Continue Keppra. 8. Chronic anemia: Monitor closely. Plan discussed with The patient and case management team.
[2024-08-20] MEDS: Mupirocin NASAL 2 APPL/1 GM TUBE NAS SCH (19:13)
[2024-08-21 06:24] LABS: Absolute Basophils 0.1 K/uL (0-0.5); Absolute Eosinophils 0.4 K/uL (0-0.5); Absolute Lymphocytes (CBC) 2.8 K/uL (0.7-4.9); Absolute Monocytes 0.8 K/uL (0.1-1.3); Basophils % 0.8 % (0-1.3); Eosinophils % 6.4 % (0-4.4); Lymphocytes % 39.6 % (15.3-44.8); MCH 31.4 pg (27.0-35.0); MCHC 34.3 g/dL (32.0-36.0); MCV 91.8 fL (80-100); MPV 7.3 fL (7.6-11.3); Monocytes % 10.6 % (3.3-12.3); Neutrophils % 42.6 % (41.7-73.7); Platelets 181 thou/uL (152-406); RBC Red Blood Cell Count 3.49 M/uL (4.33-5.43); Red Cell Distribution Width 16.7 % (12.1-15.2)
[2024-08-21 06:33] LABS: Anion Gap 7.7 mEq/L (5.0-15.0); Potassium 4.7 mEq/L (3.5-5.1)
--- NOTE | 2024-08-21 13:47 | P.PN ---
Subjective Date of Service: 08/21/24 Chief Complaint: Right foot pain Subjective: No chest pain or shortness of breath. No nausea or vomiting. No abdominal pain. No obvious bleeding. Looks comfortable in the bed. Denies any foot pain. Objective: General appearance: Alert and comfortable CVS: Normal S1 and S2 Lungs: Clear to auscultation bilaterally Abdomen: Soft, bowel sounds present, no tenderness Extremities: No right lower extremity edema. Wound on the right foot, dressing present. left leg amputation Physical Examination - Vital Signs Temperature: 97.7 F Blood Pressure: 122/61 Pulse: 85 Respirations: 20 Pulse Ox (%): 97 - Studies Medications List Reviewed: Yes Assessment And Plan - Plan 1. Osteomyelitis of the right leg/foot; continue with IV antibiotics and pain control. s/p debridement. -ID consult on board, appreciate recommendations, will need 6 weeks of IV ABX, PICC placed 08/20 2. Diabetic foot wound with neuropathy; continue with gabapentin and continue with strict blood sugar control 3. COPD; continue with inhaler therapy 4. CHF, CAD: continue with cardiac meds 5. Hypertension: Continue home medications. 6. Depression: Continue home meds. 7. Seizure Disorder: Continue Keppra. 8. Chronic anemia: Monitor closely. Plan discussed with The patient and case management team. He will be a difficult placement as per case management team. Continue antibiotics at this time.
--- NOTE | 2024-08-21 19:25 | PN ---
Subjective: Patient is lying in bed. No new complaints. Denies any other problems except for right foot pain. Objective: Vital Signs: Reviewed. Lungs: Basal crackles. Heart: S1, S2. Regular. Abdomen: Soft, nontender. Bowel sounds present. Extremities: Right foot wound noted with wound VAC in place. Laboratory Data: WBC 7.1, hemoglobin 11, platelets 181. BUN 18, creatinine 0.8. Wound cultures reece wing Proteus mirabilis, ESBL. Currently on meropenem. Assessment And Plan: 1. Right foot osteomyelitis, status post debridement of the wound. Continue meropenem for 6 weeks. Monitor signs of infection with WBC and fever trends. 2. Anemia of chronic disease. 3. Diabetes mellitus. 4. Tobacco use. We will follow the patient as needed. NF/MODL Voice ID: [id number] Report ID: [id number]
[2024-08-21] MEDS: ATORVASTATIN 40 MG TAB PO SCH (20:48)
[2024-08-22 06:38] LABS: Absolute Eosinophils 0.4 K/uL (0-0.5); Absolute Lymphocytes (CBC) 2.7 K/uL (0.7-4.9); Absolute Monocytes 0.7 K/uL (0.1-1.3); Absolute Neutrophil 3.2 K/uL (1.8-8.0); Basophils % 0.4 % (0-1.3); Eosinophils % 6.4 % (0-4.4); Hematocrit 31.8 % (39.6-49.0); Hemoglobin 10.8 g/dL (13.6-17.9); Lymphocytes % 37.9 % (15.3-44.8); MCH 31.3 pg (27.0-35.0); MCHC 33.9 g/dL (32.0-36.0); MCV 92.4 fL (80-100); MPV 7.1 fL (7.6-11.3); Monocytes % 9.8 % (3.3-12.3); Neutrophils % 45.5 % (41.7-73.7); Platelets 151 thou/uL (152-406); RBC Red Blood Cell Count 3.44 M/uL (4.33-5.43); Red Cell Distribution Width 16.5 % (12.1-15.2)
[2024-08-22 06:53] LABS: Anion Gap 8.7 mEq/L (5.0-15.0); Potassium 4.7 mEq/L (3.5-5.1)
[2024-08-22] MEDS: Meropenem 1000 MG/VIAL IV ONE (08:47)
[2024-08-22] MEDS: ASPIRIN EC 81 MG TAB PO SCH (09:09)
--- NOTE | 2024-08-22 15:33 | P.PN ---
Subjective Date of Service: 08/22/24 Chief Complaint: Right foot pain Subjective: No chest pain or shortness of breath. No nausea or vomiting. No abdominal pain. No obvious bleeding. Looks comfortable in the bed. Denies any foot pain. Objective: General appearance: Alert and comfortable CVS: Normal S1 and S2 Lungs: Clear to auscultation bilaterally Abdomen: Soft, bowel sounds present, no tenderness Extremities: No right lower extremity edema. Wound on the right foot, dressing present. left leg amputation Physical Examination - Vital Signs Temperature: 98.1 F Blood Pressure: 103/51 Pulse: 83 Respirations: 18 Pulse Ox (%): 99 - Studies Microbiology Data (last 24 hrs): 08/16/24 22:43 Blood - Blood Aerobic Blood Culture - Final No growth in 5 days. 08/16/24 22:43 Blood - Blood Anaerobic Blood Culture - Final No growth in 5 days. 08/16/24 22:34 Blood - Blood Aerobic Blood Culture - Final No growth in 5 days. 08/16/24 22:34 Blood - Blood Anaerobic Blood Culture - Final No growth in 5 days. Medications List Reviewed: Yes Assessment And Plan - Plan 1. Osteomyelitis of the right leg/foot; continue with IV antibiotics and pain control. s/p debridement. -ID consult on board, appreciate recommendations, will need 6 weeks of IV ABX, PICC placed 08/20 2. Diabetic foot wound with neuropathy; continue with gabapentin and continue with strict blood sugar control 3. COPD; continue with inhaler therapy 4. CHF, CAD: continue with cardiac meds 5. Hypertension: Continue home medications. 6. Depression: Continue home meds. 7. Seizure Disorder: Continue Keppra. 8. Chronic anemia: Monitor closely. Plan discussed with The patient and case management team. He will be a diff icult placement as per case management team. Continue antibiotics at this time.
--- NOTE | 2024-08-22 21:39 | P.PN ---
Date of Service: 08/22/24 Subjective: Patient is lying in bed. No new complaints. Denies any new complaints Objective: Temp Pulse Resp BP Pulse Ox 98.3 F 85 18 113/85 100 08/22/24 16:00 08/22/24 21:26 08/22/24 21:26 08/22/24 21:26 08/22/24 21:26 General: Alert, Oriented x3 HEENT: Atraumatic, Normocephalic, PERRLA, EOMI Neck: Supple, JVD not distended Respiratory: Clear to auscultation bilaterally Cardiovascular: Regular rate/rhythm Capillary refill: <2 Seconds Gastrointestinal: Normal bowel sounds, Non-distended Integumentary: wound vac to right foot Neurological: Normal speech, Normal tone Laboratory Results 08/16/24 22:43 Blood - Blood Aerobic Blood Culture - Final No growth in 5 days. Abx: Meropenum Laboratory Data today: WBC 7.0, hemoglobin 10.8 , platelets 151. BUN 18, creatinine 0.9. Microbiology: Wound cultures to right foot growing Proteus mirabilis, ESBL. Assessment And Plan: 1. Right foot osteomyelitis, status post debridement of the wound. Monitor signs of infection with WBC and fever trends. continue meropenum for 6 weeks. stop date 09/30/24 2. Anemia of chronic disease. defer to primary 3. Diabetes mellitus. defer to primary Case discussed with DR. Conroy during round in agreement
[2024-08-23] MEDS: MORPHINE 2 MG/ML SYR IV PRN (03:02)
[2024-08-23 06:02] LABS: Absolute Basophils 0.1 K/uL (0-0.5); Absolute Eosinophils 0.4 K/uL (0-0.5); Absolute Lymphocytes (CBC) 2.9 K/uL (0.7-4.9); Absolute Monocytes 0.7 K/uL (0.1-1.3); Absolute Neutrophil 4.2 K/uL (1.8-8.0); Basophils % 1.2 % (0-1.3); Eosinophils % 4.5 % (0-4.4); Hematocrit 33.2 % (39.6-49.0); Hemoglobin 11.3 g/dL (13.6-17.9); Lymphocytes % 35.1 % (15.3-44.8); MCH 31.5 pg (27.0-35.0); MCHC 33.9 g/dL (32.0-36.0); MCV 93.1 fL (80-100); MPV 6.8 fL (7.6-11.3); Monocytes % 8.7 % (3.3-12.3); Neutrophils % 50.5 % (41.7-73.7); Platelets 183 thou/uL (152-406); RBC Red Blood Cell Count 3.57 M/uL (4.33-5.43); Red Cell Distribution Width 16.4 % (12.1-15.2)
[2024-08-23 06:10] LABS: Anion Gap 10.8 mEq/L (5.0-15.0); Potassium 4.8 mEq/L (3.5-5.1)
[2024-08-23 08:47] LABS: White Blood Cell Scan OK (OK)
[2024-08-23 08:48] LABS: Blood Morphology Comment NOT SEEN (NOT SEEN); Platelet Estimate ADEQ
[2024-08-23] MEDS: ALTEPLASE 2 MG/VIAL IV PRN ×2 (09:13→11:56)
[2024-08-23] MEDS: COLLAGENASE 30 GM OINTMENT TOP SCH (11:56)
--- NOTE | 2024-08-23 13:33 | P.PN ---
Subjective Date of Service: 08/23/24 Chief Complaint: Right foot pain Subjective: No chest pain or shortness of breath. No nausea or vomiting. No abdominal pain. No obvious bleeding. Looks comfortable in the bed. Denies any foot pain. Objective: General appearance: Alert and comfortable CVS: Normal S1 and S2 Lungs: Clear to auscultation bilaterally Abdomen: Soft, bowel sounds present, no tenderness Extremities: No right lower extremity edema. right foot has dressing. left leg amputation Physical Examination - Vital Signs Temperature: 98.2 F Blood Pressure: 105/55 Pulse: 81 Respirations: 16 Pulse Ox (%): 96 - Studies Medications List Reviewed: Yes Assessment And Plan - Plan 1. Osteomyelitis of the right leg/foot; continue with IV antibiotics and pain control. s/p debridement. -ID consult on board, appreciate recommendations, will need 6 weeks of IV ABX, PICC placed 08/20 2. Diabetic foot wound with neuropathy; continue with gabapentin and continue with strict blood sugar control 3. COPD; continue with inhaler therapy 4. CHF, CAD: continue with cardiac meds 5. Hypertension: Continue home medications. 6. Depression: Continue home meds. 7. Seizure Disorder: Continue Keppra. 8. Chronic anemia: Monitor closely. Plan discussed with The patient and nursing staff. He will be a difficult placement as per case management team. Continue antibiotics at this time. Wating for placement.
--- NOTE | 2024-08-23 15:26 | CON ---
Date of Consultation: 08/17/2024 Brief History Of Present Illness: The patient is a 58-year-old male known to me from previous admiss ions in surgical debridements who had a history of alcohol use disorder, tobacco use disorder, luci moseley smoking half a pack to a pack per day of cigarettes, peripheral arterial disease, seizure disorde r, hypertension, hyperlipidemia, coronary artery disease, previous left [id number] amputation, an d a right TMA amputation performed at an outside hospital, who has had multiple debridements of his r ight foot chronic wounds by myself on multiple occasions. Also history of coronary artery stents, po st PCI, COPD, presents to emergency room with chief complaint of foot pain, shortness of breath, whic h is similar to previous issues. He was at an outside facility and he states his wound care was subo ptimal, at that point, which he has had issues before in the past, ultimately leading to incomplete d ressing changes and decreased wound care to the area and he states he has had difficulty with complia nce with the wound care instructions as well, and as such, he has recurrence of the wounds with worse emre enlargement on the medial and lateral aspects of his TMA on the right residual TMA sites. He gutiérrez s exposed bone in these areas now, which is a significant worsening from his previous encounters and the area is red, tender, swollen, and painful. There has been no drainage, however, he is aware of. Past Medical History: Alcohol abuse, tobacco use, peripheral arterial disease, seizure disorder, hyp ertension, hyperlipidemia, coronary artery disease with status post PCI, COPD, GERD, CHF with diastol ic dysfunction, history of osteomyelitis, history of drug abuse. Past Surgical History: Includes a right great toe and second toe amputation in 2015, a left partial foot amputation in January 2019, a right partial foot amputation as well as multiple foot debrideme nts. He has had a PCI coronary intervention for his coronary artery disease. Allergies: NO KNOWN DRUG ALLERGIES. Home Medications: Include buspirone, escitalopram, gabapentin, Zoloft, methocarbamol, hydrocodone, a spirin, atorvastatin, Plavix, phenytoin/Dilantin, Keppra. Social History: He was staying at home in [place], reportedly recently evicted from there. He smok es every day approximately half a pack to a pack per day depending on the day. Denies current alcoho l or recreational drug use. Family History: Cancer in his father and mother. Review of Systems: Ten-point review of systems other than above, denies. Physical Examination: General: At the time of my examination, he is awake, alert, and oriented. Psychiatric: He is appropriate and conversive. HEENT. His head is normocephalic. He does have a right infraorbital skin lesion which looks similar to previous encounters. Neck: Supple without JVD. Chest: Normal to expansion and excursion. Cardiovascular: Regular rate and rhythm. Pulmonary: Clear to auscultation bilaterally. Abdomen: Soft. Extremities: Focused examination of lower extremities, he has a left BKA. His right foot has cellul itis, swelling, tenderness, exposed bone, increased slough and some superficial necrosis of the media l and lateral aspects of the TMA approximately 2.5 to 3 cm in size on both of these individually. Th ere is swelling to the foot as described. No other areas of major concern. However, there are some dry eschar skin flaking to the remainder of the leg extending up to below the knee. Laboratory Data: Revealed white blood cell count of 10.5, hemoglobin 11.6, hematocrit of 33.5, plate let count is 176. His PT 12.4, INR 1.09, PTT is 34.0, sodium 128, potassium 2.9, chloride 98, carbon dioxide is 19, BUN 13, creatinine 0.77, glucose was 101. Lactic acid on admission was 3.8, calcium 8.3, total bilirubin 0.2, AST 39, ALT 33, alkaline phosphatase is 86. His lipase is 69. He had imag ing performed, which included an x-ray of the foot, officially read as 08/16/2024 as amputation invol ves almost all of each metatarsal, ulceration of all soft tissue of the lateral foot erosion involvin g the residual fifth metatarsal suspicious for osteomyelitis. Assessment And Plan: This is a 58-year-old male who comes in with signs and symptoms of worsening in fection/osteomyelitis of his residual right TMA site. 1. IV fluid hydration. 2. Antibiotic coverage. 3. Electrolyte correction. 4. Continue medical optimization prior to any surgical intervention. 5. I have explained the risks, benefits, and alternatives of debridement versus amputation of this ar ea. The patient refuses any amputations and would only agree to a debridement of these areas in an a ttempt to save the residual amount of foot that he has. I have explained that this is going to be ch allenging given the obvious osteomyelitis. However, there must be some bony involvement and therefor e I must remove portions of the bone that are involved with osteomyelitis and do debridement and he a grees to this at this point and said that he would like to proceed. After given the risks, benefits, and alternatives, which included, but not limited to, bleeding, infection, damage to surrounding tis sues, need for further operative procedures, limb loss, and other unforeseen complications of the per ioperative period including heart attack, blood clots, strokes, and other unforeseen complications re lated to anesthesia, non-anesthesia related issues. The patient displayed understanding of above sta roseann plan, agrees to proceed as indicated. ANNA/RENATO Voice ID: [id number] Report ID: [id number]
[2024-08-24] MEDS: HYDROCODONE/APAP 5/325 MG TAB PO PRN (01:10)
[2024-08-24 05:22] LABS: Absolute Basophils 0.1 K/uL (0-0.5); Absolute Eosinophils 0.4 K/uL (0-0.5); Absolute Lymphocytes (CBC) 2.8 K/uL (0.7-4.9); Absolute Monocytes 0.7 K/uL (0.1-1.3); Absolute Neutrophil 4.2 K/uL (1.8-8.0); Basophils % 1.5 % (0-1.3); Hematocrit 31.9 % (39.6-49.0); Hemoglobin 10.7 g/dL (13.6-17.9); Lymphocytes % 34.6 % (15.3-44.8); MCH 31.5 pg (27.0-35.0); MCHC 33.6 g/dL (32.0-36.0); MCV 93.5 fL (80-100); MPV 7.3 fL (7.6-11.3); Monocytes % 8.3 % (3.3-12.3); Neutrophils % 50.6 % (41.7-73.7); Nucleated Red Blood Cells % 0.1 % (0-0); Platelets 168 thou/uL (152-406); RBC Red Blood Cell Count 3.42 M/uL (4.33-5.43); Red Cell Distribution Width 16.7 % (12.1-15.2)
[2024-08-24 05:38] LABS: Anion Gap 6.4 mEq/L (5.0-15.0); Potassium 3.4 mEq/L (3.5-5.1)
[2024-08-24] MEDS: CALCIUM GLUCONATE 1 GM IVPB 1 GM/50 ML BAG IV ONE ×2 (06:18→08:35)
[2024-08-24] MEDS: POTASSIUM CL SA 10 MEQ TAB PO ONE (06:34)
--- NOTE | 2024-08-24 12:22 | P.PN ---
Subjective Date of Service: 08/24/24 Chief Complaint: Right foot pain Subjective: No chest pain or shortness of breath. No nausea or vomiting. No abdominal pain. No obvious bleeding. Looks comfortable in the bed. Denies any foot pain. Objective: General appearance: Alert and comfortable CVS: Normal S1 and S2 Lungs: Clear to auscultation bilaterally Abdomen: Soft, bowel sounds present, no tenderness Extremities: No right lower extremity edema. right foot has dressing. left leg amputation Physical Examination - Vital Signs Temperature: 97.8 F Blood Pressure: 108/58 Pulse: 70 Respirations: 20 Pulse Ox (%): 96 - Studies Medications List Reviewed: Yes Assessment And Plan - Plan 58-year-old patient with right foot infection status post debridement, currently on IV antibiotics, has a PICC line placed, needs 6 weeks of IV antibiotics, waiting for ABX set up and placement. 1. Osteomyelitis of the right leg/foot; continue with IV antibiotics and pain control. s/p debridement. -ID consult on board, appreciate recommendations, will need 6 weeks of IV ABX, PICC placed 08/20 2. Diabetic foot wound with neuropathy; continue with gabapentin and continue with strict blood sugar control 3. COPD; continue with inhaler therapy 4. CHF, CAD: continue with cardiac meds 5. Hypertension: Continue home medications. 6. Depression: Continue home meds. 7. Seizure Disorder: Continue Keppra. 8. Chronic anemia: Monitor closely. 9. Hypokalemia, hypocalcemia: Replace and monitor. Plan discussed with The patient and nursing staff. He will be a difficult placement as per case management team. Continue antibiotics at this time. Wating for placement.
[2024-08-25 05:54] LABS: Absolute Basophils 0.1 K/uL (0-0.5); Absolute Eosinophils 0.4 K/uL (0-0.5); Absolute Lymphocytes (CBC) 2.7 K/uL (0.7-4.9); Absolute Monocytes 0.7 K/uL (0.1-1.3); Absolute Neutrophil 4.2 K/uL (1.8-8.0); Basophils % 0.9 % (0-1.3); Hematocrit 33.6 % (39.6-49.0); Hemoglobin 11.3 g/dL (13.6-17.9); Lymphocytes % 33.5 % (15.3-44.8); MCH 31.2 pg (27.0-35.0); MCHC 33.6 g/dL (32.0-36.0); MCV 92.8 fL (80-100); MPV 7.4 fL (7.6-11.3); Monocytes % 8.9 % (3.3-12.3); Neutrophils % 51.7 % (41.7-73.7); Nucleated Red Blood Cells % 0.1 % (0-0); Platelets 171 thou/uL (152-406); RBC Red Blood Cell Count 3.62 M/uL (4.33-5.43)
[2024-08-25 06:01] LABS: Anion Gap 6.3 mEq/L (5.0-15.0); Magnesium 2.6 mg/dL (1.6-2.4); Phosphorus 3.5 mg/dL (2.5-4.9); Potassium 4.3 mEq/L (3.5-5.1)
--- NOTE | 2024-08-25 14:07 | P.PN ---
Date of Service: 08/25/24 Subjective: Patient is on w/x. No new complaints. Denied fever/N/V/D Objective: Temp Pulse Resp BP Pulse Ox 97.8 F 78 20 119/61 97 08/25/24 11:55 08/25/24 11:55 08/25/24 11:55 08/25/24 11:55 08/25/24 11:55 General: Alert, Oriented x3 HEENT: Atraumatic, Normocephalic, PERRLA, EOMI Neck: Supple, JVD not distended Respiratory: Clear to auscultation bilaterally Cardiovascular: Regular rate/rhythm Capillary refill: <2 Seconds Gastrointestinal: Normal bowel sounds, Non-distended Integumentary: wound vac to right foot Neurological: Normal speech, Normal tone Laboratory Results 08/16/24 22:43 Blood - Blood Aerobic Blood Culture - Final No growth in 5 days. Abx: Meropenum Laboratory Data today: WBC 8.1, hemoglobin 11.3 , platelets 171. BUN 22, creatinine 0.9. Microbiology: Wound cultures to right foot growing Proteus mirabilis, ESBL 08/18/24 Assessment And Plan: 1. Right foot osteomyelitis, status post debridement of the wound. Monitor signs of infection with WBC and fever trends. continue meropenum for 6 weeks. stop date 09/30/24 2. Anemia of chronic disease. defer to primary 3. Diabetes mellitus. defer to primary Case discussed with DR. Conroy during round in agreement
[2024-08-25] MEDS: AMINO ACIDS/PROTEIN HYDROLYS 30 ML LIQUID.PKT PO SCH (20:00)
[2024-08-26 06:47] LABS: Absolute Basophils 0.1 K/uL (0-0.5); Absolute Eosinophils 0.3 K/uL (0-0.5); Absolute Lymphocytes (CBC) 2.5 K/uL (0.7-4.9); Absolute Monocytes 0.7 K/uL (0.1-1.3); Basophils % 1.6 % (0-1.3); Eosinophils % 4.6 % (0-4.4); Hematocrit 32.4 % (39.6-49.0); Hemoglobin 10.9 g/dL (13.6-17.9); Lymphocytes % 32.6 % (15.3-44.8); MCH 31.4 pg (27.0-35.0); MCHC 33.7 g/dL (32.0-36.0); MCV 93.2 fL (80-100); MPV 7.1 fL (7.6-11.3); Monocytes % 9.4 % (3.3-12.3); Neutrophils % 51.8 % (41.7-73.7); Nucleated Red Blood Cells % 0.1 % (0-0); Platelets 176 thou/uL (152-406); RBC Red Blood Cell Count 3.48 M/uL (4.33-5.43)
[2024-08-26 07:19] LABS: Anion Gap 8.3 mEq/L (5.0-15.0); Potassium 4.3 mEq/L (3.5-5.1)
--- NOTE | 2024-08-26 15:59 | PN ---
Subjective: The patient lying in bed. No new acute event. Chart reviewed. Objective: Vital signs: Reviewed. Lungs: Basal crackles. Heart: S1, S2 regular. Abdomen: Soft, nontender. Bowel sounds present. Extremities: No edema. The patient currently on meropenem. Wound culture positive for Proteus ESBL. Assessment And Plan: 1. Osteomyelitis of right foot. Continue Merrem for 42 days. 2. Anemia of chronic disease. 3. Peripheral vascular disease. 4. Continue supportive care and wound care. We will follow the patient as needed. NF/MODL Voice ID: [id number] Report ID: [id number]
[2024-08-27] MEDS ORDERED: IPRATROPIUM BROM 0.5MG/2.5ML NEB PRN (07:25)
[2024-08-27 08:43] LABS: Absolute Basophils 0.1 K/uL (0-0.5); Absolute Eosinophils 0.4 K/uL (0-0.5); Absolute Lymphocytes (CBC) 2.8 K/uL (0.7-4.9); Absolute Monocytes 0.6 K/uL (0.1-1.3); Absolute Neutrophil 4.2 K/uL (1.8-8.0); Basophils % 1.2 % (0-1.3); Eosinophils % 5.3 % (0-4.4); Hemoglobin 11.3 g/dL (13.6-17.9); Lymphocytes % 34.6 % (15.3-44.8); MCH 31.1 pg (27.0-35.0); MCHC 33.3 g/dL (32.0-36.0); MCV 93.4 fL (80-100); MPV 7.3 fL (7.6-11.3); Monocytes % 7.5 % (3.3-12.3); Neutrophils % 51.4 % (41.7-73.7); Platelets 195 thou/uL (152-406); RBC Red Blood Cell Count 3.64 M/uL (4.33-5.43); Red Cell Distribution Width 15.8 % (12.1-15.2)
[2024-08-27 08:56] LABS: Anion Gap 9.6 mEq/L (5.0-15.0); Potassium 4.6 mEq/L (3.5-5.1)
--- NOTE | 2024-08-27 18:47 | P.PN ---
Date of Service: 08/27/24 Subjective: Patient is seen in bed. No new complaints. Denied fever/N/V/D Objective: Temp Pulse Resp BP Pulse Ox 98.0 F 76 18 113/62 97 08/27/24 16:00 08/27/24 16:00 08/27/24 16:53 08/27/24 16:00 08/27/24 16:53 General: Alert, Oriented x3 HEENT: Atraumatic, Normocephalic, PERRLA, EOMI Neck: Supple, JVD not distended Respiratory: Clear to auscultation bilaterally Cardiovascular: Regular rate/rhythm Capillary refill: <2 Seconds Gastrointestinal: Normal bowel sounds, Non-distended Integumentary: wound vac to right foot Neurological: Normal speech, Normal tone Laboratory Results 08/16/24 22:43 Blood - Blood Aerobic Blood Culture - Final No growth in 5 days. Abx: Meropenum Laboratory Data today: WBC 8.1, hemoglobin 11.3 , platelets 195. BUN 19, creatinine 0.79. Microbiology: Wound cultures to right foot growing Proteus mirabilis, ESBL 08/18/24 Assessment And Plan: 1. Right foot osteomyelitis, status post debridement of the wound. Monitor signs of infection with WBC and fever trends. continue meropenum for 6 weeks. stop date 09/30/24 continue supportive care and wound care 2. Anemia of chronic disease. defer to primary 3. Diabetes mellitus. defer to primary 4. Periperal vascular disease Case discussed with DR. Conroy during round in agreement
[2024-08-28 06:18] LABS: Absolute Basophils 0.1 K/uL (0-0.5); Absolute Eosinophils 0.4 K/uL (0-0.5); Absolute Lymphocytes (CBC) 2.4 K/uL (0.7-4.9); Absolute Monocytes 0.7 K/uL (0.1-1.3); Absolute Neutrophil 3.5 K/uL (1.8-8.0); Basophils % 1.4 % (0-1.3); Eosinophils % 5.9 % (0-4.4); Hematocrit 32.7 % (39.6-49.0); Hemoglobin 10.9 g/dL (13.6-17.9); Lymphocytes % 33.8 % (15.3-44.8); MCH 30.8 pg (27.0-35.0); MCHC 33.5 g/dL (32.0-36.0); MCV 91.9 fL (80-100); MPV 7.4 fL (7.6-11.3); Monocytes % 9.5 % (3.3-12.3); Neutrophils % 49.4 % (41.7-73.7); Nucleated Red Blood Cells % 0.1 % (0-0); Platelets 194 thou/uL (152-406); RBC Red Blood Cell Count 3.55 M/uL (4.33-5.43)
[2024-08-28 06:32] LABS: Anion Gap 7.1 mEq/L (5.0-15.0); Magnesium 2.5 mg/dL (1.6-2.4); Phosphorus 4.5 mg/dL (2.5-4.9); Potassium 4.1 mEq/L (3.5-5.1)
[2024-08-29] MEDS: MORPHINE 2 MG/ML SYR IV PRN (06:34)
[2024-08-29 06:52] LABS: Absolute Eosinophils 0.4 K/uL (0-0.5); Absolute Lymphocytes (CBC) 2.3 K/uL (0.7-4.9); Absolute Monocytes 0.7 K/uL (0.1-1.3); Absolute Neutrophil 3.8 K/uL (1.8-8.0); Basophils % 0.7 % (0-1.3); Eosinophils % 5.9 % (0-4.4); Hematocrit 31.3 % (39.6-49.0); Hemoglobin 10.6 g/dL (13.6-17.9); Lymphocytes % 31.1 % (15.3-44.8); MCH 31.2 pg (27.0-35.0); MCHC 33.8 g/dL (32.0-36.0); MCV 92.2 fL (80-100); MPV 7.9 fL (7.6-11.3); Monocytes % 9.8 % (3.3-12.3); Neutrophils % 52.5 % (41.7-73.7); Nucleated Red Blood Cells % 0.2 % (0-0); Platelets 168 thou/uL (152-406); Red Cell Distribution Width 15.8 % (12.1-15.2)
[2024-08-29 07:25] LABS: Anion Gap 6.4 mEq/L (5.0-15.0); Potassium 4.4 mEq/L (3.5-5.1)
--- NOTE | 2024-08-29 16:45 | P.PN ---
Date of Service: 08/29/24 Subjective: Patient is seen in bed. No new complaints. Denied fever/N/V/D Objective: Temp Pulse Resp BP Pulse Ox 98.5 F 72 18 132/66 97 08/29/24 12:00 08/29/24 12:00 08/29/24 12:00 08/29/24 12:00 08/29/24 12:00 General: Alert, Oriented x3 HEENT: Atraumatic, Normocephalic, PERRLA, EOMI Neck: Supple, JVD not distended Respiratory: Clear to auscultation bilaterally Cardiovascular: Regular rate/rhythm Capillary refill: <2 Seconds Gastrointestinal: Normal bowel sounds, Non-distended Integumentary: right foot dressing. no drainage noted Neurological: Normal speech, Normal tone Laboratory Results 08/16/24 22:43 Blood - Blood Aerobic Blood Culture - Final No growth in 5 days. Abx: Meropenum Laboratory Data today: WBC 7.3, hemoglobin 10.6 , platelets 168. BUN 27, creatinine 0.74. Microbiology: Wound cultures to right foot growing Proteus mirabilis, ESBL 08/18/24 Assessment And Plan: 1. Right foot osteomyelitis, status post debridement of the wound. Monitor signs of infection with WBC and fever trends. continue meropenum for 6 weeks. stop date 09/30/24 continue supportive care and wound care 2. Anemia of chronic disease. defer to primary 3. Diabetes mellitus. defer to primary 4. Periperal vascular disease Case discussed with DR. Conroy during round in agreement
--- NOTE | 2024-08-30 00:41 | P.PN ---
Date of Service: 08/25/24 Subjective Patient does not have any identification. Unable to set up home health for wound care and IV antibiotics until we get identification. Physical Examination - Vital Signs Reviewed - Physical Exam General: Alert, In no apparent distress, Oriented x3 Respiratory: Clear to auscultation bilaterally Cardiovascular: Regular rate/rhythm, Normal S1 S2 Gastrointestinal: Normal bowel sounds, No tenderness Musculoskeletal: No tenderness; muscular atrophy Integumentary: wound to the right lower extremity Neurological: Lower extremity neuropathy; upper extremity strength is within normal limits Assessment & Plan - Problems (Diagnosis) (1) Osteomyelitis of the right 5th toe; status post debridement Current Visit: No Status: Acute (2) COPD (chronic obstructive pulmonary disease) Current Visit: No Status: Acute (3) Depression Current Visit: No Status: Acute (4) Hypokalemia Onset Date: 11/12/17 Current Visit: No Status: Acute (5) Peripheral neuropathy Onset Date: 01/07/16 Current Visit: No Status: Acute (6) Seizure disorder Current Visit: No Status: Acute (7) Anemia Onset Date: 01/07/16 Current Visit: No Status: Chronic Qualifiers: Anemia type: other cause (8) CAD (coronary artery disease) Onset Date: 03/15/17 Current Visit: No Status: Chronic Qualifiers: Coronary Disease-Associated Artery/Lesion type: unspecified vessel or lesion type [place] vs. transplanted heart: [place] heart Associated angina: without angina Qualified Code(s): I25.10 - Atherosclerotic heart disease of [place] coronary artery without angina pectoris (9) CHF (congestive heart failure) Onset Date: 03/15/17 Current Visit: No Status: Chronic (10) Hyperlipemia Current Visit: No Status: Chronic Qualifiers: Hyperlipidemia type: unspecified Qualified Code(s): E78.5 - Hyperlipidemia, unspecified (11) Hypertension Onset Date: 01/07/16 Current Visit: No Status: Chronic Qualifiers: Hypertension type: essential hypertension Qualified Code(s): I10 - Essential (primary) hypertension (12) Atherosclerosis of [place] artery of leg with ulceration of foot /PAD Current Visit: No Status: Ruled-out - Plan Continue with plan of care as mentioned below: 1. Osteomyelitis of the right leg/foot; continue with IV antibiotics and pain control. s/p debridement during hospitalization. Continue with wound care and arrange for IV antibiotics as an outpatient. Waiting for address and identification. 2. Diabetic foot wound with neuropathy; continue with gabapentin and continue with strict blood sugar control; ID consult 3. COPD; continue with inhaler therapy 4. CHF; continue with cardiac meds 5. CAD; continue with antiplatelet therapy and statin therapy 6. Chronic kidney disease; continue monitoring renal function 7. GI and DVT prophylaxis Discharge Plan: Custodial Plan to discharge in: Greater than 2 days - Advance Directives Does patient have a Living Will: No Does patient have a Durable POA for Healthcare: No - Code Status/Comfort Care Code Status: Full Code Critical Care: No Time Spent Managing PTS Care (In Minutes): 30 Patient is stable for discharge. Unfortunately we have not been able to locate any identification for the patient. Without identification unable to set up home health. Patient does need the IV antibiotics and we have expressed the urgency of patient given does records so we can identify him and we can make arrangements for discharge planning. Unfortunately he has not been that helpful and in getting this accomplished.
--- NOTE | 2024-08-30 00:43 | P.PN ---
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 However, it is . And we are unable to use this to set up IV antibiotics and wound care. General surgeon will just wants wet-to-dry dressings at this time he does not want a wound VAC placed as patient does not have a safe place to go at this time. Patient still needs an additional 4 weeks of IV antibiotics. Patient has not been helpful and getting arrangements made for discharge and we have no identification. Physical Examination - Vital Signs Reviewed - Physical Exam General: Alert, In no apparent distress, Oriented x3 Respiratory: Clear to auscultation bilaterally Cardiovascular: Regular rate/rhythm, Normal S1 S2 Gastrointestinal: Normal bowel sounds, No tenderness Musculoskeletal: No tenderness; muscular atrophy Integumentary: wound to the right lower extremity Neurological: Lower extremity neuropathy; upper extremity strength is within normal limits Assessment & Plan - Problems (Diagnosis) (1) Osteomyelitis of the right 5th toe; status post debridement Current Visit: No Status: Acute (2) COPD (chronic obstructive pulmonary disease) Current Visit: No Status: Acute (3) Depression Current Visit: No Status: Acute (4) Hypokalemia Onset Date: 11/12/17 Current Visit: No Status: Acute (5) Peripheral neuropathy Onset Date: 01/07/16 Current Visit: No Status: Acute (6) Seizure disorder Current Visit: No Status: Acute (7) Anemia Onset Date: 01/07/16 Current Visit: No Status: Chronic Qualifiers: Anemia type: other cause (8) CAD (coronary artery disease) Onset Date: 03/15/17 Current Visit: No Status: Chronic Qualifiers: Coronary Disease-Associated Artery/Lesion type: unspecified vessel or lesion type [place] vs. transplanted heart: [place] heart Associated angina: without angina Qualified Code(s): I25.10 - Atherosclerotic heart disease of [place] coronary artery without angina pectoris (9) CHF (congestive heart failure) Onset Date: 03/15/17 Current Visit: No Status: Chronic (10) Hyperlipemia Current Visit: No Status: Chronic Qualifiers: Hyperlipidemia type: unspecified Qualified Code(s): E78.5 - Hyperlipidemia, unspecified (11) Hypertension Onset Date: 01/07/16 Current Visit: No Status: Chronic Qualifiers: Hypertension type: essential hypertension Qualified Code(s): I10 - Essential (primary) hypertension (12) Atherosclerosis of [place] artery of leg with ulceration of foot /PAD Current Visit: No Status: Ruled-out - Plan Continue with plan of care as mentioned below: 1. Osteomyelitis of the right leg/foot; continue with IV antibiotics and pain control. s/p debridement during hospitalization. Continue with wound care and arrange for IV antibiotics as an outpatient. Waiting for address and identification. 2. Diabetic foot wound with neuropathy; continue with gabapentin and continue with strict blood sugar control; ID consult 3. COPD; continue with inhaler therapy 4. CHF; continue with cardiac meds 5. CAD; continue with antiplatelet therapy and statin therapy 6. Chronic kidney disease; continue monitoring renal function 7. GI and DVT prophylaxis Discharge Plan: Custodial Plan to discharge in: Greater than 2 days - Advance Directives Does patient have a Living Will: No Does patient have a Durable POA for Healthcare: No - Code Status/Comfort Care Code Status: Full Code Critical Care: No Time Spent Managing PTS Care (In Minutes): 30 Patient is stable for discharge. Unfortunately we have not been able to locate any identification for the patient. Without identification unable to set up home health. Patient does need the IV antibiotics and we have expressed the urgency of patient given does records so we can identify him and we can make arrangements for discharge planning. Unfortunately he has not been that helpful and in getting this accomplished.
--- NOTE | 2024-08-30 00:45 | P.PN ---
Date of Service: 08/27/24 Subjective Patient with no significant changes. Continue with wound care. Continue with IV antibiotics. 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 Unfortunately patient has not been able to help us do any of this. We may need to work on discharge planning and discharging home with home health and will allow him to call us when he gets all this arranged. 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 However, it is . And we are unable to use this to set up IV antibiotics and wound care. General surgeon will just wants wet-to-dry dressings at this time he does not want a wound VAC placed as patient does not have a safe place to go at this time. Patient still needs an additional 4 weeks of IV antibiotics. Patient has not been helpful and getting arrangements made for discharge and we have no identification. Physical Examination - Vital Signs Reviewed - Physical Exam General: Alert, In no apparent distress, Oriented x3 Respiratory: Clear to auscultation bilaterally Cardiovascular: Regular rate/rhythm, Normal S1 S2 Gastrointestinal: Normal bowel sounds, No tenderness Musculoskeletal: No tenderness; muscular atrophy Integumentary: wound to the right lower extremity Neurological: Lower extremity neuropathy; upper extremity strength is within normal limits Assessment & Plan - Problems (Diagnosis) (1) Osteomyelitis of the right 5th toe; status post debridement Current Visit: No Status: Acute (2) COPD (chronic obstructive pulmonary disease) Current Visit: No Status: Acute (3) Depression Current Visit: No Status: Acute (4) Hypokalemia Onset Date: 11/12/17 Current Visit: No Status: Acute (5) Peripheral neuropathy Onset Date: 01/07/16 Current Visit: No Status: Acute (6) Seizure disorder Current Visit: No Status: Acute (7) Anemia Onset Date: 01/07/16 Current Visit: No Status: Chronic Qualifiers: Anemia type: other cause (8) CAD (coronary artery disease) Onset Date: 03/15/17 Current Visit: No Status: Chronic Qualifiers: Coronary Disease-Associated Artery/Lesion type: unspecified vessel or lesion type [place] vs. transplanted heart: [place] heart Associated angina: without angina Qualified Code(s): I25.10 - Atherosclerotic heart disease of [place] coronary artery without angina pectoris (9) CHF (congestive heart failure) Onset Date: 10/19/17 Current Visit: No Status: Chronic (10) Hyperlipemia Current Visit: No Status: Chronic Qualifiers: Hyperlipidemia type: unspecified Qualified Code(s): E78.5 - Hyperlipidemia, unspecified (11) Hypertension Onset Date: 01/07/16 Current Visit: No Status: Chronic Qualifiers: Hypertension type: essential hypertension Qualified Code(s): I10 - Essential (primary) hypertension (12) Atherosclerosis of [place] artery of leg with ulceration of foot /PAD Current Visit: No Status: Ruled-out - Plan Continue with plan of care as mentioned below: 1. Osteomyelitis of the right leg/foot; continue with IV antibiotics and pain control. s/p debridement during hospitalization. Continue with wound care and arrange for IV antibiotics as an outpatient. Waiting for address and identification. 2. Diabetic foot wound with neuropathy; continue with gabapentin and continue with strict blood sugar control; ID consult 3. COPD; continue with inhaler therapy 4. CHF; continue with cardiac meds 5. CAD; continue with antiplatelet therapy and statin therapy 6. Chronic kidney disease; continue monitoring renal function 7. GI and DVT prophylaxis Discharge Plan: [facility] Plan to discharge in: Greater than 2 days - Advance Directives Does patient have a Living Will: No Does patient have a Durable POA for Healthcare: No - Code Status/Comfort Care Code Status: Full Code Critical Care: No Time Spent Managing PTS Care (In Minutes): 30 Patient is stable for discharge. Unfortunately we have not been able to locate any identification for the patient. Without identification unable to set up home health. Patient does need the IV antibiotics and we have expressed the urgency of patient given does records so we can identify him and we can make arrangements for discharge planning. Unfortunately he has not been that helpful and in getting this accomplished.
--- NOTE | 2024-08-30 00:46 | P.PN ---
Date of Service: 08/28/24 Subjective Patient is still not able to give us identification. Continue with IV antibiotics and wound care. Working on discharge planning. 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 However, it is . And we are unable to use this to set up IV antibiotics and wound care. General surgeon will just wants wet-to-dry dressings at this time he does not want a wound VAC placed as patient does not have a safe place to go at this time. Patient still needs an additional 4 weeks of IV antibiotics. Patient has not been helpful and getting arrangements made for discharge and we have no identification. Physical Examination - Vital Signs Reviewed - Physical Exam General: Alert, In no apparent distress, Oriented x3 Respiratory: Clear to auscultation bilaterally Cardiovascular: Regular rate/rhythm, Normal S1 S2 Gastrointestinal: Normal bowel sounds, No tenderness Musculoskeletal: No tenderness; muscular atrophy Integumentary: wound to the right lower extremity Neurological: Lower extremity neuropathy; upper extremity strength is within normal limits Assessment & Plan - Problems (Diagnosis) (1) Osteomyelitis of the right 5th toe; status post debridement Current Visit: No Status: Acute (2) COPD (chronic obstructive pulmonary disease) Current Visit: No Status: Acute (3) Depression Current Visit: No Status: Acute (4) Hypokalemia Onset Date: 11/12/17 Current Visit: No Status: Acute (5) Peripheral neuropathy Onset Date: 01/07/16 Current Visit: No Status: Acute (6) Seizure disorder Current Visit: No Status: Acute (7) Anemia Onset Date: 01/07/16 Current Visit: No Status: Chronic Qualifiers: Anemia type: other cause (8) CAD (coronary artery disease) Onset Date: 03/15/17 Current Visit: No Status: Chronic Qualifiers: Coronary Disease-Associated Artery/Lesion type: unspecified vessel or lesion type [place] vs. transplanted heart: [place] heart Associated angina: without angina Qualified Code(s): I25.10 - Atherosclerotic heart disease of [place] coronary artery without angina pectoris (9) CHF (congestive heart failure) Onset Date: 03/15/17 Current Visit: No Status: Chronic (10) Hyperlipemia Current Visit: No Status: Chronic Qualifiers: Hyperlipidemia type: unspecified Qualified Code(s): E78.5 - Hyperlipidemia, unspecified (11) Hypertension Onset Date: 08/12/16 Current Visit: No Status: Chronic Qualifiers: Hypertension type: essential hypertension Qualified Code(s): I10 - Essential (primary) hypertension (12) 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 Osteomyelitis of the right leg/foot; continue with IV antibiotics and pain control. s/p debridement during hospitalization. Continue with wound care and arrange for IV antibiotics as an outpatient. Waiting for address and identification. 2. Diabetic foot wound with neuropathy; continue with gabapentin and continue with strict blood sugar control; ID consult 3. COPD; continue with inhaler therapy 4. CHF; continue with cardiac meds 5. CAD; continue with antiplatelet therapy and statin therapy 6. Chronic kidney disease; continue monitoring renal function 7. GI and DVT prophylaxis Discharge Plan: [facility] Plan to discharge in: Greater than 2 days - Advance Directives Does patient have a Living Will: No Does patient have a Durable POA for Healthcare: No - Code Status/Comfort Care Code Status: Full Code Critical Care: No Time Spent Managing PTS Care (In Minutes): 30 Patient is stable for discharge. Unfortunately we have not been able to locate any identification for the patient. Without identification unable to set up home health. Patient does need the IV antibiotics and we have expressed the urgency of patient given does records so we can identify him and we can make arrangements for discharge planning. Unfortunately he has not been that helpful and in getting this accomplished.
--- NOTE | 2024-08-30 00:54 | P.PN ---
Date of Service: 08/29/24 Subjective Patient left the hospital for over an hour and a half. When I was notified I spoke to the residential supervisor and patient had pretty much eloped. However, nurses called and stated that he admitted back to his room after 90 minutes. [place] [facility] [place] Spoke to patient about leaving his room again and if that was the case he would need to be discharged. 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 However, it is . And we are unable to use this to set up IV antibiotics and wound care. General surgeon will just wants wet-to-dry dressings at this time he does not want a wound VAC placed as patient does not have a safe place to go at this time. Patient still needs an additional 4 weeks of IV antibiotics. Patient has not been helpful and getting arrangements made for discharge and we have no identification. Physical Examination - Vital Signs Reviewed - Physical Exam General: Alert, In no apparent distress, Oriented x3 Respiratory: Clear to auscultation bilaterally Cardiovascular: Regular rate/rhythm, Normal S1 S2 Gastrointestinal: Normal bowel sounds, No tenderness Musculoskeletal: No tenderness; muscular atrophy Integumentary: wound to the right lower extremity Neurological: Lower extremity neuropathy; upper extremity strength is within normal limits Assessment & Plan - Problems (Diagnosis) (1) Osteomyelitis of the right 5th toe; status post debridement Current Visit: No Status: Acute (2) COPD (chronic obstructive pulmonary disease) Current Visit: No Status: Acute (3) Depression Current Visit: No Status: Acute (4) Hypokalemia Onset Date: 11/12/17 Current Visit: No Status: Acute (5) Peripheral neuropathy Onset Date: 01/07/16 Current Visit: No Status: Acute (6) Seizure disorder Current Visit: No Status: Acute (7) Anemia Onset Date: 01/07/16 Current Visit: No Status: Chronic Qualifiers: Anemia type: other cause (8) CAD (coronary artery disease) Onset Date: 03/15/17 Current Visit: No Status: Chronic Qualifiers: Coronary Disease-Associated Artery/Lesion type: unspecified vessel or lesion type [place] vs. transplanted heart: [place] heart Associated angina: without angina Qualified Code(s): I25.10 - Atherosclerotic heart disease of [place] coronary artery without angina pectoris (9) CHF (congestive heart failure) Onset Date: 03/15/17 Current Visit: No Status: Chronic (10) Hyperlipemia Current Visit: No Status: Chronic Qualifiers: Hyperlipidemia type: unspecified Qualified Code(s): E78.5 - Hyperlipidemia, unspecified (11) Hypertension Onset Date: 01/07/16 Current Visit: No Status: Chronic Qualifiers: Hypertension type: essential hypertension Qualified Code(s): I10 - Essential (primary) hypertension (12) Atherosclerosis of [place] artery of leg with ulceration of foot /PAD Current Visit: No Status: Ruled-out - Plan Continue with plan of care as mentioned below: 1. Osteomyelitis of the right leg/foot; continue with IV antibiotics and pain control. s/p debridement during hospitalization. Continue with wound care and arrange for IV antibiotics as an outpatient. Waiting for address and identification. 2. Diabetic foot wound with neuropathy; continue with gabapentin and continue with strict blood sugar control; ID consult 3. COPD; continue with inhaler therapy 4. CHF; continue with cardiac meds 5. CAD; continue with antiplatelet therapy and statin therapy 6. Chronic kidney disease; continue monitoring renal function 7. GI and DVT prophylaxis Discharge Plan: [facility] Plan to discharge in: Greater than 2 days - Advance Directives Does patient have a Living Will: No Does patient have a Durable POA for Healthcare: No - Code Status/Comfort Care Code Status: Full Code Critical Care: No Time Spent Managing PTS Care (In Minutes): 30 Patient is stable for discharge. Unfortunately we have not been able to locate any identification for the patient. Without identification unable to set up home health. Patient does need the IV antibiotics and we have expressed the urgency of patient given does records so we can identify him and we can make arrangements for discharge planning. Unfortunately he has not been that helpful and in getting this accomplished.
--- NOTE | 2024-08-30 12:54 | P.PN ---
Subjective Date of Service: 08/30/24 Chief Complaint: Right foot pain Subjective: No chest pain or shortness of breath. No nausea or vomiting. No abdominal pain. No obvious bleeding. Looks comfortable in the bed. Right foot pain ok. Objective: General appearance: Alert and comfortable CVS: Normal S1 and S2 Lungs: Clear to auscultation bilaterally Abdomen: Soft, bowel sounds present, no tenderness Extremities: No right lower extremity edema. right foot has dressing. left leg amputation Physical Examination - Vital Signs Temperature: 98 F Blood Pressure: 117/62 Pulse: 87 Respirations: 15 Pulse Ox (%): 96 - Studies Medications List Reviewed: Yes Assessment And Plan - Plan 58-year-old patient with right foot infection status post debridement, currently on IV antibiotics, has a PICC line placed, needs 6 weeks of IV antibiotics, waiting for ABX set up and placement. 1. Osteomyelitis of the right leg/foot; continue with IV antibiotics and pain control. s/p debridement. -ID consult on board, appreciate recommendations, will need 6 weeks of IV ABX, PICC placed 08/20 2. Diabetic foot wound with neuropathy; continue with gabapentin and continue with strict blood sugar control 3. COPD; continue with inhaler therapy 4. CHF, CAD: continue with cardiac meds 5. Hypertension: Continue home medications. 6. Depression: Continue home meds. 7. Seizure Disorder: Continue Keppra. 8. Chronic anemia: Monitor closely. 9. Hypokalemia, hypocalcemia: Replaced, monitor. Plan discussed with The patient and nursing staff. Wating for placement.
[2024-08-30] MEDS: HYDROCODONE/APAP 5/325 MG TAB PO PRN (23:15)
--- NOTE | 2024-08-31 12:33 | P.PN ---
Subjective Date of Service: 08/31/24 Chief Complaint: Right foot pain Subjective: No chest pain or shortness of breath. No nausea or vomiting. No abdominal pain. No obvious bleeding. Looks comfortable in the bed. Right foot pain ok. Objective: General appearance: Alert and comfortable CVS: Normal S1 and S2 Lungs: Clear to auscultation bilaterally Abdomen: Soft, bowel sounds present, no tenderness Extremities: No right lower extremity edema. right foot has dressing. left leg amputation Physical Examination - Vital Signs Temperature: 97.6 F Blood Pressure: 98/54 Pulse: 67 Respirations: 20 Pulse Ox (%): 98 - Studies Medications List Reviewed: Yes Assessment And Plan - Plan 58-year-old patient with right foot infection status post debridement, currently on IV antibiotics, has a PICC line placed, needs 6 weeks of IV antibiotics, waiting for ABX set up and placement. 1. Osteomyelitis of the right leg/foot; continue with IV antibiotics and pain control. s/p debridement. -ID consult on board, appreciate recommendations, will need 6 weeks of IV ABX, PICC placed 08/20 2. Diabetic foot wound with neuropathy; continue with gabapentin and continue with strict blood sugar control 3. COPD; continue with inhaler therapy 4. CHF, CAD: continue with cardiac meds 5. Hypertension: Continue home medications. 6. Depression: Continue home meds. 7. Seizure Disorder: Continue Keppra. 8. Chronic anemia: Monitor closely. 9. Hypokalemia, hypocalcemia: Replaced, monitor. Plan discussed with The patient and nursing staff. Wating for placement.
[2024-08-31] MEDS: MORPHINE 2 MG/ML SYR IV PRN (16:04)
[2024-08-31 23:23] VITALS: O2SAT 98
[2024-09-01 05:58] LABS: Absolute Basophils 0.1 K/uL (0-0.5); Absolute Eosinophils 0.6 K/uL (0-0.5); Absolute Lymphocytes (CBC) 2.4 K/uL (0.7-4.9); Absolute Monocytes 0.7 K/uL (0.1-1.3); Absolute Neutrophil 3.8 K/uL (1.8-8.0); Basophils % 1.5 % (0-1.3); Eosinophils % 7.8 % (0-4.4); Hematocrit 32.9 % (39.6-49.0); Hemoglobin 11.1 g/dL (13.6-17.9); Lymphocytes % 31.9 % (15.3-44.8); MCH 30.9 pg (27.0-35.0); MCHC 33.6 g/dL (32.0-36.0); MCV 91.9 fL (80-100); MPV 7.9 fL (7.6-11.3); Monocytes % 9.3 % (3.3-12.3); Neutrophils % 49.5 % (41.7-73.7); Nucleated Red Blood Cells % 0.1 % (0-0); Platelets 167 thou/uL (152-406); RBC Red Blood Cell Count 3.58 M/uL (4.33-5.43); Red Cell Distribution Width 16.3 % (12.1-15.2)
[2024-09-01 06:13] LABS: Anion Gap 8.4 mEq/L (5.0-15.0); Potassium 4.4 mEq/L (3.5-5.1)
--- NOTE | 2024-09-01 13:46 | P.PN ---
Subjective Date of Service: 09/01/24 Chief Complaint: Right foot pain Subjective: No chest pain or shortness of breath. No nausea or vomiting. No abdominal pain. No obvious bleeding. Looks comfortable in the bed. Right foot pain ok. Objective: General appearance: Alert and comfortable CVS: Normal S1 and S2 Lungs: Clear to auscultation bilaterally Abdomen: Soft, bowel sounds present, no tenderness Extremities: No right lower extremity edema. right foot has dressing. left leg amputation Physical Examination - Vital Signs Temperature: 98.5 F Blood Pressure: 98/40 Pulse: 75 Respirations: 17 Pulse Ox (%): 96 - Studies Medications List Reviewed: Yes Assessment And Plan - Plan 58-year-old patient with right foot infection status post debridement, currently on IV antibiotics, has a PICC line placed, needs 6 weeks of IV antibiotics, waiting for ABX set up and home placement. 1. Osteomyelitis of the right leg/foot; continue with IV antibiotics and pain control. s/p debridement. -ID consult on board, appreciate recommendations, will need 6 weeks of IV ABX, PICC placed 08/20 2. Diabetic foot wound with neuropathy; continue with gabapentin and continue with strict blood sugar control 3. COPD; continue with inhaler therapy 4. CHF, CAD: continue with cardiac meds 5. H/o hypertension: BP soft, not on meds 6. Depression: Continue home meds. 7. Seizure Disorder: Continue Keppra. 8. Chronic anemia: Monitor closely. 9. Hypokalemia, hypocalcemia: Replaced, monitor. Plan discussed with The patient and nursing staff. d/w CM team. [place] for placement, ?he may find an apartment soon.
--- NOTE | 2024-09-01 16:46 | P.PN ---
Date of Service: 09/01/24 Subjective: Patient is seen in bed. No new complaints. Denied fever/N/V/D Objective: Temp Pulse Resp BP Pulse Ox 98.5 F 75 16 98/40 L 95 09/01/24 13:46 09/01/24 13:46 09/01/24 14:18 09/01/24 13:46 09/01/24 14:18 General: Alert, Oriented x3 HEENT: Atraumatic, Normocephalic, PERRLA, EOMI Neck: Supple, JVD not distended Respiratory: Clear to auscultation bilaterally Cardiovascular: Regular rate/rhythm Capillary refill: <2 Seconds Gastrointestinal: Normal bowel sounds, Non-distended Integumentary: right foot dressing. no drainage noted Neurological: Normal speech, Normal tone Laboratory Results 08/16/24 22:43 Blood - Blood Aerobic Blood Culture - Final No growth in 5 days. Abx: Meropenum Laboratory Data today: WBC 7.6, hemoglobin 11.1 , platelets 167. BUN 24, creatinine 0.69. Microbiology: Wound cultures to right foot growing Proteus mirabilis, ESBL 08/18/24 Assessment And Plan: 1. Right foot osteomyelitis, status post debridement of the wound. Monitor signs of infection with WBC and fever trends. continue meropenum for 6 weeks. stop date 09/30/24 continue supportive care and wound care 2. Anemia of chronic disease. defer to primary 3. Diabetes mellitus. defer to primary 4. Periperal vascular disease Case discussed with DR. Conroy during round in agreement
[2024-09-02 04:50] LABS: Absolute Basophils 0.1 K/uL (0-0.5); Absolute Eosinophils 0.6 K/uL (0-0.5); Absolute Lymphocytes (CBC) 2.5 K/uL (0.7-4.9); Absolute Monocytes 0.7 K/uL (0.1-1.3); Absolute Neutrophil 4.3 K/uL (1.8-8.0); Basophils % 1.8 % (0-1.3); Eosinophils % 7.5 % (0-4.4); Hematocrit 32.7 % (39.6-49.0); Hemoglobin 11.1 g/dL (13.6-17.9); Lymphocytes % 30.1 % (15.3-44.8); MCH 30.9 pg (27.0-35.0); MCHC 33.9 g/dL (32.0-36.0); MCV 91.1 fL (80-100); MPV 8.1 fL (7.6-11.3); Monocytes % 8.5 % (3.3-12.3); Neutrophils % 52.1 % (41.7-73.7); Nucleated Red Blood Cells % 0.1 % (0-0); Platelets 194 thou/uL (152-406); RBC Red Blood Cell Count 3.59 M/uL (4.33-5.43); Red Cell Distribution Width 16.2 % (12.1-15.2)
[2024-09-02 05:12] LABS: Anion Gap 8.3 mEq/L (5.0-15.0); Potassium 4.3 mEq/L (3.5-5.1)
--- NOTE | 2024-09-02 16:03 | PN ---
Subjective: The patient lying in bed. No new acute event. Chart reviewed. Objective: Vital Signs: Reviewed. Lungs: Basal crackles. Heart: S1, S2. Regular. Abdomen: Soft, nontender. Bowel sounds present. Extremities: Wound noted. Laboratory Data: WBC 8.3, hemoglobin 11.9, platelets 194. Assessment And Plan: 1. Osteomyelitis of the right foot. 2. Anemia of chronic disease. 3. Peripheral vascular disease. 4. Chronic obstructive pulmonary disease. 5. Diabetic foot ulcer. Continue antibiotics, total of 6 weeks. Wound culture with Proteus mirabilis, ESBL. We will follow the patient as needed. NF/MODL Voice ID: [id number] Report ID: [id number]
[2024-09-02] MEDS: MORPHINE 2 MG/ML SYR IV PRN (17:24)
--- NOTE | 2024-09-02 18:29 | P.PN ---
Subjective Date of Service: 09/02/24 Chief Complaint: Right foot pain Subjective: No new changes No complaints Review of Systems 10-point ROS is otherwise unremarkable Physical Examination - Vital Signs Temperature: 97.7 F Blood Pressure: 132/65 Pulse: 74 Respirations: 18 Pulse Ox (%): 99 - Physical Exam General: Alert, In no apparent distress HEENT: Atraumatic, Normocephalic Neck: Supple Respiratory: Clear to auscultation bilaterally Cardiovascular: No edema Gastrointestinal: Normal bowel sounds Musculoskeletal: No clubbing Neurological: Normal gait Lymphatics: No axilla or inguinal lymphadenopathy - Studies Medications List Reviewed: Yes Assessment And Plan - Plan 58-year-old patient with right foot infection status post debridement, currently on IV antibiotics, has a PICC line placed, needs 6 weeks of IV antibiotics, waiting for ABX set up and home placement. 1. Osteomyelitis of the right leg/foot; continue with IV antibiotics and pain control. s/p debridement. -ID consult on board, appreciate recommendations, will need 6 weeks of IV ABX, PICC placed 08/20 2. Diabetic foot wound with neuropathy; continue with gabapentin and continue with strict blood sugar control 3. COPD; continue with inhaler therapy 4. CHF, CAD: continue with cardiac meds 5. H/o hypertension: BP soft, not on meds 6. Depression: Continue home meds. 7. Seizure Disorder: Continue Keppra. 8. Chronic anemia: Monitor closely. 9. Hypokalemia, hypocalcemia: Replaced, monitor. Plan discussed with The patient and nursing staff. d/w CM team. [place] for placement, ?he may find an apartment soon.
[2024-09-03 05:57] LABS: Absolute Eosinophils 0.7 K/uL (0-0.5); Absolute Lymphocytes (CBC) 2.6 K/uL (0.7-4.9); Absolute Monocytes 0.8 K/uL (0.1-1.3); Absolute Neutrophil 3.7 K/uL (1.8-8.0); Basophils % 0.6 % (0-1.3); Eosinophils % 9.2 % (0-4.4); Hematocrit 33.6 % (39.6-49.0); Hemoglobin 11.3 g/dL (13.6-17.9); Lymphocytes % 33.3 % (15.3-44.8); MCH 30.7 pg (27.0-35.0); MCHC 33.6 g/dL (32.0-36.0); MCV 91.3 fL (80-100); MPV 8.4 fL (7.6-11.3); Monocytes % 10.2 % (3.3-12.3); Neutrophils % 46.7 % (41.7-73.7); Nucleated Red Blood Cells % 0.1 % (0-0); Platelets 155 thou/uL (152-406); RBC Red Blood Cell Count 3.68 M/uL (4.33-5.43); Red Cell Distribution Width 15.9 % (12.1-15.2)
[2024-09-03 08:57] LABS: Anion Gap 6.6 mEq/L (5.0-15.0); Potassium 4.6 mEq/L (3.5-5.1)
--- NOTE | 2024-09-03 11:32 | P.PN ---
Subjective Date of Service: 09/03/24 Chief Complaint: Right foot pain No complaints Physical Examination - Vital Signs Temperature: 97.9 F Blood Pressure: 140/56 Pulse: 69 Respirations: 16 Pulse Ox (%): 96 - Physical Exam General: Alert HEENT: Atraumatic Neck: Supple Respiratory: Clear to auscultation bilaterally Cardiovascular: No edema, Normal pulses, Regular rate/rhythm Gastrointestinal: Normal bowel sounds, Hypoactive, Soft and benign, Non- distended Musculoskeletal: No clubbing, No swelling, No contractures Neurological: Normal gait - Studies Medications List Reviewed: Yes Assessment And Plan - Plan 58-year-old patient with right foot infection status post debridement, currently on IV antibiotics, has a PICC line placed, needs 6 weeks of IV antibiotics, waiting for ABX set up and home placement. 1. Osteomyelitis of the right leg/foot; continue with IV antibiotics and pain control. s/p debridement. -ID consult on board, appreciate recommendations, will need 6 weeks of IV ABX, PICC placed 08/20 2. Diabetic foot wound with neuropathy; continue with gabapentin and continue with strict blood sugar control 3. COPD; continue with inhaler therapy 4. CHF, CAD: continue with cardiac meds 5. H/o hypertension: BP soft, not on meds 6. Depression: Continue home meds. 7. Seizure Disorder: Continue Keppra. 8. Chronic anemia: Monitor closely. 9. Hypokalemia, hypocalcemia: Replaced, monitor. Plan discussed with The patient and nursing staff. d/w CM team. [place] for placement, ?he may find an apartment soon.
--- NOTE | 2024-09-03 15:49 | P.PN ---
Date of Service: 09/03/24 Subjective: Patient is seen in w/c. No new complaints. Denied fever/N/V/D Objective: Temp Pulse Resp BP Pulse Ox 98.5 F 83 16 112/67 96 09/03/24 12:00 09/03/24 12:00 09/03/24 14:30 09/03/24 12:00 09/03/24 14:30 General: Alert, Oriented x3 HEENT: Atraumatic, Normocephalic, PERRLA, EOMI Neck: Supple, JVD not distended Respiratory: Clear to auscultation bilaterally Cardiovascular: Regular rate/rhythm Capillary refill: <2 Seconds Gastrointestinal: Normal bowel sounds, Non-distended Integumentary: right foot dressing. no drainage noted Neurological: Normal speech, Normal tone Laboratory Results Culture 08/18/24: right foot wound: proteus mirabilis ESBL 08/16/24 22:43 Blood negative. Abx: Meropenum Laboratory Data today: WBC 7.9, hemoglobin 11.3 , platelets 155. BUN 27, creatinine 0.70 Assessment And Plan: 1. Right foot osteomyelitis, status post debridement of the wound. Monitor signs of infection with WBC and fever trends. continue meropenum for 6 weeks. stop date 09/30/24 continue supportive care and wound care 2. Anemia of chronic disease. defer to primary 3. Diabetes mellitus. defer to primary 4. Periperal vascular disease Case discussed with DR. Conroy during round in agreement
[2024-09-04 05:53] LABS: Absolute Basophils 0.1 K/uL (0-0.5); Absolute Eosinophils 0.9 K/uL (0-0.5); Absolute Lymphocytes (CBC) 2.5 K/uL (0.7-4.9); Absolute Monocytes 0.8 K/uL (0.1-1.3); Absolute Neutrophil 3.6 K/uL (1.8-8.0); Basophils % 1.3 % (0-1.3); Eosinophils % 11.3 % (0-4.4); Hematocrit 32.2 % (39.6-49.0); Lymphocytes % 31.8 % (15.3-44.8); MCH 30.9 pg (27.0-35.0); MCHC 34.1 g/dL (32.0-36.0); MCV 90.5 fL (80-100); Monocytes % 9.7 % (3.3-12.3); Neutrophils % 45.9 % (41.7-73.7); Platelets 169 thou/uL (152-406); RBC Red Blood Cell Count 3.56 M/uL (4.33-5.43); Red Cell Distribution Width 16.1 % (12.1-15.2)
[2024-09-04 06:06] LABS: Anion Gap 9.5 mEq/L (5.0-15.0); Potassium 4.5 mEq/L (3.5-5.1)
--- NOTE | 2024-09-04 10:43 | P.PN ---
Subjective Date of Service: 09/04/24 Chief Complaint: Right foot pain No complaints Review of Systems 10-point ROS is otherwise unremarkable Physical Examination - Vital Signs Temperature: 97.6 F Blood Pressure: 127/61 Pulse: 77 Respirations: 17 Pulse Ox (%): 98 - Physical Exam General: Alert, Oriented x3 HEENT: Atraumatic Neck: Supple Respiratory: Clear to auscultation bilaterally Cardiovascular: No edema Gastrointestinal: Normal bowel sounds, Soft and benign Musculoskeletal: Other (Left BKA, right TMA) Neurological: Normal gait, Normal speech, Normal strength at 5/5 x4 extr - Studies Medications List Reviewed: Yes Assessment And Plan - Plan 58-year-old patient with right foot infection status post debridement, currently on IV antibiotics, has a PICC line placed, needs 6 weeks of IV antibiotics, waiting for ABX set up and home placement. 1. Osteomyelitis of the right leg/foot; continue with IV antibiotics and pain control. s/p debridement. -ID consult on board, appreciate recommendations, will need 6 weeks of IV ABX, PICC placed 08/20 2. Diabetic foot wound with neuropathy; continue with gabapentin and continue with strict blood sugar control 3. COPD; continue with inhaler therapy 4. CHF, CAD: continue with cardiac meds 5. H/o hypertension: BP soft, not on meds 6. Depression: Continue home meds. 7. Seizure Disorder: Continue Keppra. 8. Chronic anemia: Monitor closely. 9. Hypokalemia, hypocalcemia: Replaced, monitor. Plan discussed with The patient and nursing staff. d/w CM team. [place] for placement, ?he may find an apartment soon.
[2024-09-04] MEDS: HYDROCODONE/APAP 5/325 MG TAB PO PRN (17:22)
--- NOTE | 2024-09-04 22:55 | PN ---
Date of Progress Note: 09/04/2024 Subjective: The patient is sitting in wheelchair. Denies any headache, nausea, vomiting, chest pain , abdominal pain, constipation, or diarrhea. Objective: Vital signs: Reviewed. Lungs: Basal crackles. Heart: S1, S2. Regular. Abdomen: Soft, nontender. Bowel sounds present. Extremities: Wound noted. Laboratory Data: WBC 7.9, hemoglobin 11, platelets are 169. BUN of 23, creatinine 0.7. Assessment And Plan: 1. Right foot osteomyelitis, status post debridement of the wound. The patient is doing well. 2. Anemia of chronic disease. 3. Diabetes mellitus. 4. Peripheral vascular disease. 5. Continue to monitor signs of infection with WBC and fever trends. NF/MODL Voice ID: [id number] Report ID: [id number]
[2024-09-05 07:44] LABS: Absolute Basophils 0.1 K/uL (0-0.5); Absolute Eosinophils 0.9 K/uL (0-0.5); Absolute Lymphocytes (CBC) 2.5 K/uL (0.7-4.9); Absolute Monocytes 0.8 K/uL (0.1-1.3); Absolute Neutrophil 3.4 K/uL (1.8-8.0); Basophils % 0.9 % (0-1.3); Eosinophils % 11.5 % (0-4.4); Hematocrit 33.2 % (39.6-49.0); Hemoglobin 11.2 g/dL (13.6-17.9); Lymphocytes % 32.6 % (15.3-44.8); MCH 30.6 pg (27.0-35.0); MCHC 33.6 g/dL (32.0-36.0); MCV 91.1 fL (80-100); MPV 8.1 fL (7.6-11.3); Monocytes % 10.6 % (3.3-12.3); Neutrophils % 44.4 % (41.7-73.7); Nucleated Red Blood Cells % 0.1 % (0-0); Platelets 176 thou/uL (152-406); RBC Red Blood Cell Count 3.65 M/uL (4.33-5.43); Red Cell Distribution Width 15.7 % (12.1-15.2)
[2024-09-05 08:11] LABS: Anion Gap 13.5 mEq/L (5.0-15.0); Magnesium 2.5 mg/dL (1.6-2.4); Potassium 4.5 mEq/L (3.5-5.1)
[2024-09-05 09:34] LABS: Phosphorus 4.2 mg/dL (2.5-4.9)
[2024-09-05 11:57] VITALS: BP 145/76; TEMP 97.8
[2024-09-05] MEDS: ERTAPENEM NA 1 GM in NA CHLORIDE 0.9% 100 ML IVPB SCH (14:18)
--- NOTE | 2024-09-05 17:39 | P.DS ---
Admission Date: 08/17/24 Discharge Date: 09/05/24 Disposition: ROUTINE DISCHARGE Discharge Condition: GOOD Reason for Admission: Right foot pain Brief History of Present Illness: 58 yrs old Male history of alcohol use disorder, tobacco use disorder, PAD, seizure disorder, hypertension, hyperlipidemia, CAD, previous left BKA, right TMA amputation, history of CAD status post PCI, COPD presents emergency department chief complaint of foot pain and shortness of breath. Patient denies any chest pain. Denies any fever or chills. No nausea vomiting or diarrhea. He was having increasing pain to his right foot and came to the emergency department, he was evaluated in the emergency department and found to have an elevated lactic acid and admitted for further evaluation and management of suspected cellulitis/sepsis of the right foot Hospital Course: 58-year-old patient with history of diabetes, depression, seizure disorder, left BKA, COPD, initially admitted for right foot osteomyelitis. Underwent right foot debridement, with cultures positive ESBL Proteus. Was on meropenem in- house seen by infectious disease specialist recommended 6 weeks of IV antibiotics, Ertepenem. PICC line also placed. Patient had a protracted hospital stay due to difficulty arranging outpatient IV antibiotics due to his unstable living situation. Eventually this was resolved the patient was then discharged. Vital Signs/Physical Exam: Temp Pulse Resp BP Pulse Ox 97.8 F 90 17 145/76 H 99 09/05/24 11:56 09/05/24 11:56 09/05/24 11:56 09/05/24 11:56 09/05/24 11:56 General: Alert HEENT: Atraumatic Neck: Supple Respiratory: Diminished Cardiovascular: No edema, Regular rate/rhythm, Normal S1 S2 Gastrointestinal: Normal bowel sounds, Non-distended Neurological: Normal gait, Normal tone Laboratory Data at Discharge: WBC 7.70 thou/uL (4.3-10.9) 09/05/24 07:22 Hgb 11.2 g/dL (13.6-17.9) L 09/05/24 07:22 Hct 33.2 % (39.6-49.0) L 09/05/24 07:22 Plt Count 176 thou/uL (152-406) 09/05/24 07:22 PT 12.4 SECONDS (10-13.0) 08/16/24 22:34 INR 1.09 08/16/24 22:34 APTT 34.0 SECONDS (27.2-37.4) 08/16/24 22:34 Sodium 139 mEq/L (136-145) 09/05/24 07:22 Potassium 4.5 mEq/L (3.5-5.1) 09/05/24 07:22 BUN 24 mg/dL (7-18) H 09/05/24 07:22 Creatinine 0.72 mg/dL (0.70-1.30) 09/05/24 07:22 Glucose 80 mg/dL (74-106) 09/05/24 07:22 Phosphorus 4.2 mg/dL (2.5-4.9) 09/05/24 07:22 Magnesium 2.5 mg/dL (1.6-2.4) H 09/05/24 07:22 Total Bilirubin 0.3 mg/dL (0.2-1.0) 08/18/24 07:51 AST 23 U/L (15-37) 08/18/24 07:51 ALT 31 U/L (16-61) 08/18/24 07:51 Alkaline Phosphatase 73 U/L (45-117) 08/18/24 07:51 Lipase 69 U/L (13-75) 08/16/24 22:34 Home Medications: Buspirone HCl 2 tab PO BID #60 tab 01/21/24 Escitalopram Oxalate 20 mg PO DAILY #30 tab 01/21/24 Multivit-Min/Iron/Folic Acid/K [Multi-Day Plus Minerals Tablet] 1 tab PO DAILY #30 tab 01/21/24 Sertraline [Zoloft*] 100 mg PO DAILY #30 tab 01/21/24 methocarbamoL [Methocarbamol] 500 mg PO TID #90 tab 01/21/24 Collagenase [Santyl Ointment*] 1 appl TOP DAILY #1 tube 03/12/24 Aspirin [Aspirin EC 81 MG] 81 mg PO DAILY 04/16/24 Atorvastatin Calcium 40 mg PO BEDTIME 04/16/24 PHENYTOIN ER Cap [Dilantin ER Cap*] 300 mg PO BEDTIME 04/16/24 levETIRAcetam [Keppra*] 1,500 mg PO BID 04/16/24 Clopidogrel Bisulfate [Plavix] 75 mg PO DAILY #30 tab 08/26/24 Gabapentin [Neurontin*] 200 mg PO TID #120 cap 08/26/24 Hydrocodone 10/APAP 325 [[place] 10/325*] 1 tab PO Q6H PRN #30 tab 08/26/24 New Medications: Gabapentin [Neurontin*] 200 mg PO TID #120 cap Hydrocodone 10/APAP 325 [[place] 10/325*] 1 tab PO Q6H PRN #30 tab PRN Reason: Pain Scale 5-7 (Moderate) Clopidogrel Bisulfate [Plavix] 75 mg PO DAILY #30 tab Physician Discharge Instructions: - DC home -Follow-up with PCP in 1 to 2 weeks -Please call Dr. Ramirez at [phone] if any questions regarding hospital stay -Please call nursing station at [phone] if any nursing or medication questions -Return to the emergency room if symptoms worsen Diet: ADA Activity: Fall precautions Followup: Faizan Lay MD [ACTIVE - CAN ADMIT] - 1-2 Weeks NONE,NONE [Primary Care Provider] -
[2024-09-06] MEDS ORDERED: ERTAPENEM SODIUM 1 GM VIAL IM ONE (12:38)
== END 2024-09-05 16:10 | disposition home or self-care (01) | DRG 854 ==
LOC: ER 21:36 → ERHOLD 08-17 00:20 → 4TH 08-17 02:07
PROVIDERS: ADMIT Family Medicine; ATTEND Internal Medicine
PROC: 0JBQ0ZZ Excision of Right Foot Subcutaneous Tissue and Fascia, Open Approach (ICD-10-PCS; principal; 2024-08-18 14:30)
PROC: 02HV33Z Insertion of Infusion Device into Superior Vena Cava, Percutaneous Approach (ICD-10-PCS; 2024-08-20)
DX: A41.9 Sepsis, unspecified organism (principal); E11.52 Type 2 diabetes mellitus with diabetic peripheral angiopathy with gangrene; I13.0 Hypertensive heart and chronic kidney disease with heart failure and stage 1 through stage 4 chronic kidney disease, or unspecified chronic kidney disease; J44.1 Chronic obstructive pulmonary disease with (acute) exacerbation; L03.115 Cellulitis of right lower limb; M86.171 Other acute osteomyelitis, right ankle and foot; I50.32 Chronic diastolic (congestive) heart failure; Z16.12 Extended spectrum beta lactamase (ESBL) resistance; E87.20 Acidosis, unspecified; E44.0 Moderate protein-calorie malnutrition; E11.42 Type 2 diabetes mellitus with diabetic polyneuropathy; E11.69 Type 2 diabetes mellitus with other specified complication; E11.621 Type 2 diabetes mellitus with foot ulcer; L97.519 Non-pressure chronic ulcer of other part of right foot with unspecified severity; E78.5 Hyperlipidemia, unspecified; E87.6 Hypokalemia; N18.9 Chronic kidney disease, unspecified; E11.22 Type 2 diabetes mellitus with diabetic chronic kidney disease; D63.1 Anemia in chronic kidney disease; F32.A Depression, unspecified; E83.51 Hypocalcemia; G40.909 Epilepsy, unspecified, not intractable, without status epilepticus; I25.2 Old myocardial infarction; I25.10 Atherosclerotic heart disease of native coronary artery without angina pectoris; F17.210 Nicotine dependence, cigarettes, uncomplicated; B96.4 Proteus (mirabilis) (morganii) as the cause of diseases classified elsewhere; Z95.5 Presence of coronary angioplasty implant and graft; Z89.421 Acquired absence of other right toe(s); Z89.512 Acquired absence of left leg below knee; Z86.14 Personal history of Methicillin resistant Staphylococcus aureus infection; Z79.82 Long term (current) use of aspirin; Z79.899 Other long term (current) drug therapy; Z68.29 Body mass index [BMI] 29.0-29.9, adult
CPT/HCPCS: 36415; 36569; 71045; 80048; 80053; 80076; 80202; 82533; 82550; 82947; 83605; 83690; 83735; 83880; 84100; 84145; 85025; 85610; 85730; 86140; 87040; 87070; 87075; 87077; 87186; 87205; 88304; 94760; 96365; 96366; 96367; 96375; 99285; J0612; J0692; J1100; J1335; J2003; J2185; J2250; J2270; J2405; J2704; J2919; J2997; J3010; J3370; J3480; J3590; J7030; J7040; J7050; J7120; J7613; J7644

== ENCOUNTER 2024-09-09 17:11 | Emergency (ER) | payer OTHER ==
[2024-09-09] MEDS ORDERED: LORazepam 2 MG/ML VIAL ONE ×2 (17:18→19:11)
--- NOTE | 2024-09-09 18:24 | RAD REPORT ---
EXAMINATION: ONE VIEW CHEST XR CLINICAL INDICATION: seziure TECHNIQUE: Frontal chest projection is submitted. Examination is limited by patient positioning and t echnique. COMPARISON: 07/23/2024 FINDINGS: The right-sided PICC line tip appears to have flipped cephalad into the jugular vein. Interstitial op acities and reticular opacities in both lung bases noted,. The heart is mildly prominent.
[2024-09-09] MEDS ORDERED: NA CHLORIDE 0.9% 100 ML ONE ×2 (18:59→20:46)
[2024-09-09] MEDS ORDERED: LEVETIRACETAM 500 MG/5 ML VIAL IV ONE (18:59)
[2024-09-09 19:08] LABS: Absolute Basophils 0.1 K/uL (0-0.5); Absolute Eosinophils 0.1 K/uL (0-0.5); Absolute Lymphocytes (CBC) 0.8 K/uL (0.7-4.9); Absolute Neutrophil 11.9 K/uL (1.8-8.0); Basophils % 0.6 % (0-1.3); Eosinophils % 0.5 % (0-4.4); Hematocrit 39.7 % (39.6-49.0); Hemoglobin 13.6 g/dL (13.6-17.9); Lymphocytes % 5.6 % (15.3-44.8); MCH 30.4 pg (27.0-35.0); MCHC 34.4 g/dL (32.0-36.0); MCV 88.3 fL (80-100); MPV 7.9 fL (7.6-11.3); Monocytes % 7.6 % (3.3-12.3); Neutrophils % 85.7 % (41.7-73.7); Platelets 202 thou/uL (152-406); RBC Red Blood Cell Count 4.49 M/uL (4.33-5.43); Red Cell Distribution Width 15.8 % (12.1-15.2)
[2024-09-09 19:22] LABS: ALT/SGPT 39 U/L (16-61); AST/SGOT 22 U/L (15-37); Albumin 3.5 g/dL (3.4-5.0); Albumin/Globulin Ratio 0.7 (1.1-1.8); Alkaline Phosphatase 131 U/L (45-117); Anion Gap 9.7 mEq/L (5.0-15.0); BUN Blood Urea Nitrogen 15 mg/dL (7-18); Bicarbonate 23 mEq/L (21-32); Bilirubin Total 0.3 mg/dL (0.2-1.0); Globulin 5.1 g/dL (2.3-3.5); Glomerular Filtration Rate 101 ml/min (=/>90); Glucose Level 113 mg/dL (74-106); Magnesium 2.3 mg/dL (1.6-2.4); Potassium 5.7 mEq/L (3.5-5.1); Protein, Total 8.6 g/dL (6.4-8.2); Sodium Level 133 mEq/L (136-145); Troponin High Sensitivity 13.4 pg/mL (<58.9)
[2024-09-09 19:27] LABS: Bilirubin Direct < 0.2 mg/dL (0-0.2); Bilirubin Indirect, Calculated 0.1 mg/dL (0.2-0.8)
--- NOTE | 2024-09-09 20:21 | ER ---
Nurse's Notes [facility] Name: Karlos Leblanc Age: 58 yrs Sex: Male : 1965 Arrival Date: 09/09/2024 Time: 17:11 Bed 2 Private MD: Diagnosis: Epileptic seizures related to external causes, not intractable, with status epilepticus Presentation: 09/09 17:11 Chief complaint: Patient states: probable seizure. EMS reports patient was post ictal ss at his motel room upon arrival. Incontinent of bowel and bladder. Coronavirus screen: Client denies travel out of the [place] in the last 14 days. Initial Sepsis Screen: Does the patient meet any 2 criteria? HR > 90 bpm. Does the patient have a suspected source of infection? No. Patient's initial sepsis screen is negative. Risk Assessment: Do you want to hurt yourself or someone else? Patient reports no desire to harm self or others. Onset of symptoms is unknown. 17:11 Method Of Arrival: EMS: [facility] ss 17:11 Acuity: KENIA 2 ss Historical: - Allergies: 17:16 NKDA; ph - PMHx: 17:16 Chronic obstructive lung disease; Hypertension; Myocardial infarction; Seizures; ph vascular disease (Right toes amputati); - PSHx: 17:16 cardiac stents; Left Leg Amputation (below the knee); Right toes amputation; ph - Family history:: not pertinent. Screenin:54 Abuse screen: Denies threats or abuse. Nutritional screening: No deficits noted. ap3 Tuberculosis screening: No symptoms or risk factors identified. 19:50 [facility] ED Fall Risk Assessment (Adult) History of falling in the last 3 months, al5 including since admission No falls in past 3 months (0 pts) Confusion or Disorientation Yes (5 pts) Intoxicated or Sedated No (0 pts) Impaired Gait Yes (1 pt) Mobility Assist Device Used Yes (1 pt) Altered Elimination Yes (1 pt) Score/Fall Risk Level 3 or more points = High Risk Maintained a safe environment, Hourly rounding (assess needs \T\ fall precautionary measures) done. Assessment: 17:20 Reassessment: Seizure activity noted at this time. Dr. Tamez at bedside, O2 VIA ss nonrebreather \T\ 15L placed. Ativan ordered and given as administered. 17:22 Reassessment: seizure activity stopped. Pt is post ictal at this time. Respiratory: ss Airway is patent Respiratory effort is even, unlabored. 17:30 Reassessment: PT cleaned of bowel and bladder incontinence. Redness/ excoriation noted ss to groin/ gluteal cleft. 17:30 Reassessment: NRB removed. Respiratory: Airway is patent 98% on RA Respiratory effort ss is even, unlabored. 19:15 Reassessment: seizure activity notedO2 via NRB at 15 liters placed on patient. ERP ap3 notified, Ativan IV ordered and given. 19:20 General: Appears in no apparent distress. comfortable, Behavior is unresponsive. Pain: al5 Unable to use pain scale. Patient is unresponsive. Neuro: Level of Consciousness is unresponsive, Oriented to none. Cardiovascular: Capillary refill < 3 seconds Patient's skin is warm and dry. Rhythm is sinus tachycardia. Respiratory: Airway is patent Respiratory effort is even, unlabored, Respiratory pattern is regular, symmetrical. GI: Abdomen is non-distended. : No signs and/or symptoms were reported regarding the genitourinary system. EENT: No signs and/or symptoms were reported regarding the EENT system. Derm: Skin is healthy with good turgor, Skin is pink, warm \T\ dry. normal. Musculoskeletal: patient has post op boot on R leg. 21:29 Reassessment: Patient appears in no apparent distress at this time. No changes from al5 previously documented assessment. Patient and/or family updated on plan of care and expected duration. Pain level reassessed. Patient is alert, oriented x 3, equal unlabored respirations, skin warm/dry/pink. patient more responsive, is alert to verbal stimuli. changed patient into clean brief and placed bailey. patient experiencing bright red rectal bleeding with minimal bleeding. notified provider, provider aware. 21:40 Reassessment: report given to corie alves. ha1 Vital Signs: 17:11 BP 154 / 63; Pulse 114; Resp 17; Temp 98.7(A); Pulse Ox 97% on R/A; ss 18:55 BP 152 / 90; Pulse 117; Resp 18; Pulse Ox 95% on R/A; ap3 19:00 BP 175 / 103; Pulse 115; Resp 20; Pulse Ox 98% on 15 lpm Non-rebreather mask; al5 19:30 BP 177 / 90; Pulse 121; Resp 28; Pulse Ox 96% on 15 lpm Non-rebreather mask; al5 19:45 BP 160 / 84; Pulse 118; Resp 27; Pulse Ox 97% on 15 lpm Non-rebreather mask; al5 20:00 BP 163 / 83; Pulse 118; Resp 26; Pulse Ox 98% on 15 lpm Non-rebreather mask; al5 20:30 BP 155 / 85; Pulse 113; Resp 22; Pulse Ox 97% on 15 lpm Non-rebreather mask; al5 21:25 BP 161 / 77; Pulse 107; Resp 23; Pulse Ox 97% on 15 lpm Non-rebreather mask; al5 22:00 BP 145 / 69; Pulse 101; Resp 25; Pulse Ox 96% on 15 lpm Non-rebreather mask; al5 Patricia Coma Score: 19:50 Eye Response: to voice(3). Motor Response: obeys commands(6). Verbal Response: al5 confused(4). Total: 13. ED Course: 17:15 Patient arrived in ED. ph 17:16 Miko Tamez MD is Attending Physician. rt 17:33 Radiology exam delayed due to pt is being changed. az 17:40 Triage completed. ss 17:45 field handyman on. Pulse ox on. NIBP on. ss 17:51 Becka Fritz, RN is Primary Nurse. ap3 18:18 XRAY Chest (1 view) In Process Unspecified. EDMS 18:52 Initial lab(s) drawn, by me, sent to lab. Inserted saline lock: 22 gauge in left ap3 antecubital area, using aseptic technique. Blood collected. Flushed with 10 mL NS. 18:53 Patient has correct armband on for positive identification. Placed in gown. Bed in low ap3 position. Call light in reach. Side rails up X2. Seizure precautions initiated. Door closed. Noise minimized. Warm blanket given. 18:54 Arm band placed on left wrist. ap3 19:00 EKG done, by ED staff, reviewed by Miko Tamez MD. af3 19:45 Report given to Forest RN. ap3 20:18 Attending Physician role handed off by Miko Tamez MD riya 20:18 Aaron Pichardo MD is Attending Physician. riya 20:38 Initiated transfer with [facility] - 2037. kmf 20:50 CT Head Brain wo Cont In Process Unspecified. EDMS 20:58 Chest Abd Pelvis Wo Con In Process Unspecified. EDMS 21:27 Bailey cath inserted, using sterile technique, 16 Fr., by dc, balloon inflated, to al5 gravity drainage, urine specimen collected. Patient tolerated well. 21:40 Provided Education on: need for transfer. al5 22:15 No provider procedures requiring assistance completed. Patient transferred, IV remains al5 in place. 23:40 pt was accepting to [facility] \T\[id number]. accepting Dr. Pierce, S \T\ 2229. Admin approval danae Avery J \[id number]. [facility] to transfer pt once nurse to nurse is complete. Administered Medications: 17:20 Drug: Ativan IVP 2 mg IVP once Route: IVP; Site: PICC; ph 18:53 Follow up: Response: No adverse reaction ap3 19:00 Drug: Keppra IV 1000 mg IV at calculated rate once Route: IV; Rate: calculated rate; ap3 Site: left antecubital; 21:26 Follow up: Response: No adverse reaction; IV Status: Completed infusion; IV Intake: al5 100ml 21:26 Drug: Fosphenytoin IVPB 1 grams IVPB once; (mix in 50 to 100mL NS) Route: IVPB; Site: al5 left antecubital; 22:00 Follow up: Response: No adverse reaction; IV Status: Completed infusion; IV Intake: al5 100ml Medication: 19:50 VIS not applicable for this client. al5 Intake: 21:26 IV: 100ml; Total: 100ml. al5 22:00 IV: 100ml; Total: 200ml. al5 Outcome: 20:21 ER care complete, transfer ordered by . riya 22:24 Transferred by ground [facility]. al5 22:24 Condition: stable 22:24 Instructed on the need for transfer, 23:00 Patient left the ED. vc1 Signatures: Dispatcher [employer] Aaron Schumacher MD MD cha Blanchard, Shelby, RN RN Kelsey Contreras RN RN Becka Fritz RN RN ap3 Donna Orellana Vanessa, RN RN vc1 Nori Soria, RN RN ha1 Miko Tamez MD MD rt Forrester, Kelsey Maroul [facility] Becka Marcus RN RN al5 Milla Avery3 Corrections: (The following items were deleted from the chart) 18:53 07:20 Ativan IVP 2 mg IVP in PICC ph ph 21:29 19:20 Derm: Skin is intact, is healthy with good turgor, Skin is pink, warm \T\ dry. al5 normal, al5
--- NOTE | 2024-09-09 20:21 | EDPHYS ---
Physician Documentation [facility] Name: Karlos Leblanc Age: 58 yrs Sex: Male : 1965 Arrival Date: 09/09/2024 Time: 17:11 Bed 2 Private MD: ED Physician Aaron Pichardo HPI: 09/09 17:58 This 58 yrs old Male presents to ER via EMS with complaints of Seizure. rt 17:58 Patient with history of seizure disorder presents to the ED with a seizure, the patient rt was recently admitted here for prolonged time for osteomyelitis, was discharged to a hotel room. He reportedly reported compliance with his antiepileptic regiment. Patient has had a seizure, when evaluated the patient, still actively seizing. No further history could be obtained, symptoms are moderate severity, no other aggravating or being factors.. Historical: - Allergies: 17:16 NKDA; ph - PMHx: 17:16 Chronic obstructive lung disease; Hypertension; Myocardial infarction; Seizures; ph vascular disease (Right toes amputati); - PSHx: 17:16 cardiac stents; Left Leg Amputation (below the knee); Right toes amputation; ph - Family history:: not pertinent. ROS: 17:58 Unable to obtain ROS due to altered mental status, rt Exam: 17:58 Head/Face: Normocephalic, atraumatic. Chest/axilla: Normal chest wall appearance and rt motion. Nontender with no deformity. No lesions are appreciated. Cardiovascular: Regular rate and rhythm with a normal S1 and S2. No gallops, murmurs, or rubs. Normal PMI, no JVD. No pulse deficits. Respiratory: Lungs have equal breath sounds bilaterally, clear to auscultation and percussion. No rales, rhonchi or wheezes noted. No increased work of breathing, no retractions or nasal flaring. Abdomen/GI: Soft, non-tender, with normal bowel sounds. No distension or tympany. No guarding or rebound. No evidence of tenderness throughout. MS/ Extremity: Pulses equal, no cyanosis. Neurovascular intact. Full, normal range of motion. 17:58 Neuro: Actively seizing, 20:01 ECG was reviewed by the Attending Physician. rt Vital Signs: 17:11 BP 154 / 63; Pulse 114; Resp 17; Temp 98.7(A); Pulse Ox 97% on R/A; ss 18:55 BP 152 / 90; Pulse 117; Resp 18; Pulse Ox 95% on R/A; ap3 19:00 BP 175 / 103; Pulse 115; Resp 20; Pulse Ox 98% on 15 lpm Non-rebreather mask; al5 19:30 BP 177 / 90; Pulse 121; Resp 28; Pulse Ox 96% on 15 lpm Non-rebreather mask; al5 19:45 BP 160 / 84; Pulse 118; Resp 27; Pulse Ox 97% on 15 lpm Non-rebreather mask; al5 20:00 BP 163 / 83; Pulse 118; Resp 26; Pulse Ox 98% on 15 lpm Non-rebreather mask; al5 20:30 BP 155 / 85; Pulse 113; Resp 22; Pulse Ox 97% on 15 lpm Non-rebreather mask; al5 21:25 BP 161 / 77; Pulse 107; Resp 23; Pulse Ox 97% on 15 lpm Non-rebreather mask; al5 22:00 BP 145 / 69; Pulse 101; Resp 25; Pulse Ox 96% on 15 lpm Non-rebreather mask; al5 [place] Coma Score: 19:50 Eye Response: to voice(3). Motor Response: obeys commands(6). Verbal Response: al5 confused(4). Total: 13. MDM: 17:16 Medical Screening Exam initiated rt 20:57 Differential diagnosis: cerebral vascular accident, drug overdose, cardiac arrhythmia, riya seizure. Data reviewed: vital signs, nurses notes, lab test result(s), EKG, radiologic studies, CT scan, plain films. Consideration of Admission/Observation Escalation of care including admission/observation considered. I considered the following discharge prescriptions or medication management in the emergency department Medications were administered in the Emergency Department. See MAR. Independent interpretation of the following test(s) in the Emergency Department EKG: See my EKG interpretation above. Test considered but Not performed: MRI: no mri brain. Historians other than the Patient: EMS: ems well informed. Care significantly affected by the following chronic conditions: Hypertension, Chronic Obstructive Pulmonary Disease, pvd, mi. 09/09 17:22 Order name: Basic Metabolic Panel; Complete Time: 19:28 rt 09/09 17:22 Order name: CBC with Diff; Complete Time: 20:57 rt 09/09 17:22 Order name: LFT's; Complete Time: 19:28 rt 09/09 17:22 Order name: Magnesium; Complete Time: 19:28 rt 09/09 17:22 Order name: Troponin HS; Complete Time: 19:28 rt 09/09 20:30 Order name: CBC Smear Scan; Complete Time: 20:57 EDMS 09/09 17:22 Order name: XRAY Chest (1 view); Complete Time: 18:27 rt 09/09 19:28 Order name: CT Head Brain wo Cont rt 09/09 20:52 Order name: Chest Abd Pelvis Wo Con EDMS 09/09 17:22 Order name: EKG; Complete Time: 17:23 rt 09/09 17:22 Order name: Cardiac monitoring; Complete Time: 17:48 rt 09/09 17:22 Order name: EKG - Nurse/Tech; Complete Time: 19:00 rt 09/09 17:22 Order name: IV Saline Lock; Complete Time: 18:52 rt 09/09 17:22 Order name: Labs collected and sent; Complete Time: 18:52 rt 09/09 17:22 Order name: O2 Per Protocol; Complete Time: 17:48 rt 09/09 17:22 Order name: O2 Sat Monitoring; Complete Time: 17:48 rt 09/09 20:22 Order name: Seizure Precautions; Complete Time: 20:42 riya 09/09 21:26 Order name: Cooper; Complete Time: 21:26 al5 EC:01 Rate is 118 beats/min. Rhythm is regular, Sinus tachycardia with No ectopy. QRS Tyro is rt Normal. CT interval is normal. QRS interval is normal. QT interval is normal. No Q waves. T waves are Normal. No ST changes noted. Interpreted by me. Administered Medications: 17:20 Drug: Ativan IVP 2 mg IVP once Route: IVP; Site: PICC; ph 18:53 Follow up: Response: No adverse reaction ap3 19:00 Drug: Keppra IV 1000 mg IV at calculated rate once Route: IV; Rate: calculated rate; ap3 Site: left antecubital; 21:26 Follow up: Response: No adverse reaction; IV Status: Completed infusion; IV Intake: al5 100ml 21:26 Drug: Fosphenytoin IVPB 1 grams IVPB once; (mix in 50 to 100mL NS) Route: IVPB; Site: al5 left antecubital; 22:00 Follow up: Response: No adverse reaction; IV Status: Completed infusion; IV Intake: al5 100ml Disposition Summary: 09/09/24 20:21 Transfer Ordered Notes: Transfer Location: [facility] riya Reason: Higher level of care riya Condition: Stable riya Problem: new riya Symptoms: have improved riya Accepting Physician: to [facility](09/09/24 23:00) vc1 Diagnosis - Epileptic seizures related to external causes, not intractable, with status riya epilepticus Forms: - Medication Reconciliation Form riya - SBAR form riya Critical care time excluding procedures: 21:00 Critical care time: Bedside Care: 25 minutes, Consultation: 15 minutes, Family riya Intervention: 10 minutes. Total time: 50 minutes Signatures: Dispatcher [employer] Aaron Schumacher MD MD cha Hall, Patricia RN RN Becka Lan RN RN ap3 Erica Lino RN RN vc1 Miko Tamez MD MD rt Becka Marcus RN RN al5 Corrections: (The following items were deleted from the chart) 17:23 17:23 BASIC METABOLIC PANEL+C.LAB.BRZ ordered. EDMS EDMS 17:23 17:23 CBC+H.LAB.BRZ ordered. EDMS EDMS 17:23 17:23 HEPATIC FUNCTION+C.LAB.BRZ ordered. EDMS EDMS 17:23 17:23 MAGNESIUM+C.LAB.BRZ ordered. EDMS EDMS 17:23 17:23 Troponin High Sensitivity+C.LAB.BRZ ordered. EDMS EDMS 20:21 20:19 Seizure Precautions ordered. riya riya 23:00 20:21 to [facility] riya vc1
[2024-09-09 20:29] LABS: Platelet Estimate ADEQ; White Blood Cell Scan OK (OK)
[2024-09-09 20:30] LABS: Blood Morphology Comment NOT SEEN (NOT SEEN)
[2024-09-09] MEDS ORDERED: FOSPHENYTOIN PE 500 MG/10 ML VIAL ONE (20:44)
--- NOTE | 2024-09-09 21:01 | RAD REPORT ---
EXAM: CT brain without contrast HISTORY: status COMPARISON: 06/30/2023 TECHNIQUE: Multiple contiguous axial images were obtained and a CT of the brain without contrast. Sag ittal and coronal reformats were performed. One or more of the following dose reduction techniques were used: Automated exposure control, adjust ment of the mA and/or kV according to patient size, and/or iterative reconstruction. FINDINGS: No evidence of hydrocephalus, intracranial hemorrhage, or extra-axial fluid collection. Moderate brain atrophy with moderate periventricular and deep white matter chronic microvascular isc hemic changes present. No evidence of midline shift or areas of brain edema. The calvarium is intact. The visualized paranasal sinuses and mastoid air cells are essentially clear . IMPRESSION: No evidence of acute intracranial abnormality.
--- NOTE | 2024-09-09 21:05 | RAD REPORT ---
EXAM: CT CHEST, ABDOMEN AND PELVIS WITHOUT CONTRAST CLINICAL INDICATION: POST SEIZURE TECHNIQUE: CT chest, abdomen and pelvis was performed without contrast, as per department protocol. A xial, sagittal and coronal reconstructions were obtained. One or more of the following dose reduction techniques were used: Automated exposure control, adjustment of the mA and/or kV according to patient size, and/or iterative reconstruction. Unless otherwise specified, incidental findings do not require dedicated imaging follow-up. Examination is limited by the lack of intravenous contrast material. COMPARISON: No prior exam. FINDINGS: LUNGS: Mild linear atelectasis is seen in both posterior lung bases. Lungs otherwise clear. PLEURA: No pleural effusion. No pneumothorax. MEDIASTINUM AND LYMPH NODES: No mediastinal mass or fluid collection. Normal size mediastinal, hilar, and axillary lymph nodes. OSSEOUS STRUCTURES AND CHEST WALL: Intact. LIVER: Normal in size and contour. No focal lesion or biliary dilatation. Cholelithiasis. PANCREAS: No mass, ductal dilation, or lianet-pancreatic fluid. SPLEEN: Normal size. No focal lesion. ADRENALS: Normal; no mass. KIDNEYS: Normal size and contour. No hydronephrosis. URINARY BLADDER: Normal contour. GASTROINTESTINAL TRACT: No bowel obstruction, free air, significant free fluid or abscess. Moderate stool is retained throughout the colon. APPENDIX: Normal appendix. LYMPH NODES: No lymphadenopathy. MUSCULOSKELETAL: Moderate multilevel lumbar degenerative changes. OTHER: Aortoiliac atherosclerotic calcifications. IMPRESSION: Cholelithiasis
[2024-09-09 23:24] VITALS: TEMP 98.7
[2024-09-09 23:32] VITALS: O2SAT 97
[2024-09-09 23:33] VITALS: BP 161/77
== END 2024-09-09 23:00 | disposition short-term general hospital (02) ==
LOC: ER 17:11
DX: G40.501 Epileptic seizures related to external causes, not intractable, with status epilepticus (principal)
CPT/HCPCS: 93005; 85025; 80048; 36415; 83735; 80076; 84484; 70450; 71250; 74176; 71045; Q2009; J1953

== ENCOUNTER 2024-12-30 02:36 | Inpatient (IN) | payer OTHER ==
[2024-12-30] MEDS ORDERED: MULTIVITAMINS 10 ML VIAL (INJ) IV ONE (02:57)
[2024-12-30] MEDS ORDERED: LORazepam 2 MG/ML VIAL ONE ×2 (02:57→03:01)
[2024-12-30] MEDS ORDERED: THIAMINE 200 MG/2 ML INJ ONE (02:57)
[2024-12-30] MEDS ORDERED: FOLIC ACID 5 MG/ML VIAL ONE (02:58)
[2024-12-30] MEDS ORDERED: NA CHLORIDE 0.9% 1,000 ML ONE (02:59)
[2024-12-30] MEDS ORDERED: NA CHLORIDE 0.9% 500 ML ONE (02:59)
[2024-12-30] MEDS ORDERED: LEVETIRACETAM 500 MG/5 ML VIAL IV ONE (03:03)
[2024-12-30] MEDS ORDERED: NA CHLORIDE 0.9% 100 ML ONE ×2 (03:03→03:35)
[2024-12-30 03:18] LABS: Absolute Lymphocytes (CBC) 3.0 K/uL (0.7-4.9); Hematocrit 36.5 % (39.6-49.0); Hemoglobin 12.4 g/dL (13.6-17.9); MCH 31.1 pg (27.0-35.0); MCHC 34.1 g/dL (32.0-36.0); MCV 91.3 fL (80-100); MPV 7.4 fL (7.6-11.3); Nucleated RBC Absolute Count 0.0 (0-0); Nucleated Red Blood Cells % 0.2 % (0-0); RBC Red Blood Cell Count 4.00 M/uL (4.33-5.43); White Blood Count 11.10 thou/uL (4.3-10.9)
[2024-12-30 03:31] LABS: PT Prothrombin Time 13.8 SECONDS (10-13.0); PTT, Activated Partial Thromb 35.7 SECONDS (27.2-37.4); Protime INR 1.23
[2024-12-30] MEDS ORDERED: FAMOTIDINE 20 MG/2 ML VIAL IV ONE (03:33)
[2024-12-30] MEDS ORDERED: FOSPHENYTOIN PE 500 MG/10 ML VIAL ONE (03:35)
[2024-12-30] MEDS ORDERED: Magnesium Sulfate 2gm IVPB 2 G/50 ML BAG IV ONE (03:44)
[2024-12-30 03:58] LABS: ALT/SGPT 26 U/L (16-61); AST/SGOT 22 U/L (15-37); Albumin 3.0 g/dL (3.4-5.0); Albumin/Globulin Ratio 0.7 (1.1-1.8); Alkaline Phosphatase 117 U/L (45-117); Anion Gap 22.3 mEq/L (5.0-15.0); BUN Blood Urea Nitrogen 8 mg/dL (7-18); Globulin 4.6 g/dL (2.3-3.5); Glucose Level 101 mg/dL (74-106); Lipase 51 U/L (13-75); Magnesium 2.3 mg/dL (1.6-2.4); NT PRO-BNP 441 pg/mL (<125); Potassium 3.3 mEq/L (3.5-5.1); Troponin High Sensitivity 10.8 pg/mL (<58.9)
[2024-12-30 03:58] LABS: METHAMPHETAM NEGATIVE (NEGATIVE); THC Cannibis NEGATIVE (NEGATIVE)
[2024-12-30 03:59] LABS: Bilirubin Indirect, Calculated 0.0 mg/dL (0.2-0.8)
--- NOTE | 2024-12-30 04:01 | EDPHYS ---
Physician Documentation [facility] Name: Karlos Leblanc Age: 59 yrs Sex: Male : 1965 Arrival Date: 12/30/2024 Time: 02:36 Bed 3 Private MD: Aaron Barker HPI: 12/30 03:51 This 59 yrs old Male presents to ER via Unassigned with complaints of Seizure.riya 03:51 The patient presents with a history of multiple seizures, an unknown number. Character riya of seizure(s): Loss of consciousness: the patient experienced loss of consciousness, Motor activity: generalized, Incontinence: none, Apnea: the patient experienced apnea, Circulation: the patient did not experience evidence of pulse disturbance. Seizure onset: just prior to arrival, today. Context: the seizure(s) was witnessed, by family. Seizure Hx: Original onset: unknown, Cause: unknown, Last seizure: The patient's last seizure "not sure". Associated injury: The patient did not suffer any apparent associated injury. Current symptoms: alert and oriented. The patient has experienced similar episodes in the past, multiple times. Historical: - Allergies: 04:07 NKDA; bm8 - Home Meds: 04:25 lisinopril 10 mg Oral tablet 1 tab daily [Active]; metformin 500 mg Oral tablet 1 tab 2 bm8 times per day [Active]; multivitamin oral tablet [Active]; sertraline 100 mg oral tablet 1 tab daily [Active]; thiamine HCl (vitamin B1) 100 mg Oral tablet 1 tab daily [Active]; escitalopram oxalate 20 mg oral tablet 1 tab daily [Active]; folic acid 0.8 mg Oral capsule 1 cap daily [Active]; levetiracetam 1,000 mg oral tablet 1.5 tabs 2 times per day [Active]; gabapentin 100 mg oral capsule 2 caps daily [Active]; clopidogrel 75 mg oral tablet 1 tab daily [Active]; carvedilol 6.25 mg oral tablet 1 tab daily [Active]; aspirin 81 mg Oral tablet daily [Active]; buspirone 7.5 mg Oral capsule 1 cap daily [Active]; phenytoin 100 mg Oral tablet,chewable 4 tabs daily [Active]; oxycodone 5 mg Oral capsule 1 caps q6 hrs PRN for pain [Active]; tramadol 50 mg Oral tablet 1 tab q 6hrs PRN as needed for breathrough pain [Active]; lovastatin 20 mg Oral tablet 1 tab every evening [Active]; Tessalon Perles Oral 100 mg every 8 hours for Cough and Congestion [Active]; Ventolin 108mcg/act Nebulizer 1 puff 1 puff q8 hrs PRN SOB [Active]; lidocaine cream 5%, apply to right foot during bandage change M,W,F [Active]; ipratropium-albuterol 0.5 mg-3 mg(2.5 mg base)/3 mL Inhl Solution for Nebulization 3 mL 4 times per day [Active]; Narcan 4 mg/actuation intranasal spray, non-aerosol 1 spray every 2 to 3 minutes for opioid overdose [Active]; lorazepam 2 mg/mL injection Syringe 0.5 mL inject IM as needed for seizures [Active]; - PMHx: 04:07 Chronic obstructive lung disease; Hypertension; Myocardial infarction; Seizures; bm8 vascular disease (Right toes amputati); - PSHx: 04:07 cardiac stents; Left Leg Amputation (below the knee); Right toes amputation; bm8 - Immunization history:: Adult Immunizations up to date. - Infectious Disease History:: Denies. - Family history:: not pertinent. - Social history:: Smoking status: Patient reports the use of cigarette tobacco products, Patient uses alcohol, admits to "couple of beers" a day. ROS: 03:51 Constitutional: Negative for fever, chills, and weight loss, Eyes: Negative for injury, riya pain, redness, and discharge, ENT: Negative for injury, pain, and discharge, Neck: Negative for injury, pain, and swelling, Cardiovascular: Negative for chest pain, palpitations, and edema, Respiratory: Negative for shortness of breath, cough, wheezing, and pleuritic chest pain, Abdomen/GI: Negative for abdominal pain, nausea, vomiting, diarrhea, and constipation, Back: Negative for injury and pain, : Negative for injury, bleeding, discharge, and swelling, MS/Extremity: Negative for injury and deformity, Skin: Negative for injury, rash, and discoloration, Allergy/Immunology: Negative for hives, rash, and allergies, Endocrine: Negative for neck swelling, polydipsia, polyuria, polyphagia, and marked weight changes, 03:51 Neuro: Positive for seizure activity, weakness, generalized in the room, Exam: 03:51 Constitutional: This is a well developed, well nourished patient who is awake, alert, riya and in no acute distress. Head/Face: Normocephalic, atraumatic. Eyes: Pupils equal round and reactive to light, extra-ocular motions intact. Lids and lashes normal. Conjunctiva and sclera are non-icteric and not injected. Cornea within normal limits. Periorbital areas with no swelling, redness, or edema. ENT: Nares patent. No nasal discharge, no septal abnormalities noted. Tympanic membranes are normal and external auditory canals are clear. Oropharynx with no redness, swelling, or masses, exudates, or evidence of obstruction, uvula midline. Mucous membranes moist. Neck: Trachea midline, no thyromegaly or masses palpated, and no cervical lymphadenopathy. Supple, full range of motion without nuchal rigidity, or vertebral point tenderness. No Meningismus. Chest/axilla: Normal chest wall appearance and motion. Nontender with no deformity. No lesions are appreciated. Cardiovascular: Regular rate and rhythm with a normal S1 and S2. No gallops, murmurs, or rubs. Normal PMI, no JVD. No pulse deficits. Respiratory: Lungs have equal breath sounds bilaterally, clear to auscultation and percussion. No rales, rhonchi or wheezes noted. No increased work of breathing, no retractions or nasal flaring. Abdomen/GI: Soft, non-tender, with normal bowel sounds. No distension or tympany. No guarding or rebound. No evidence of tenderness throughout. Back: No spinal tenderness. No costovertebral tenderness. Full range of motion. Male : Normal genitalia with no discharge or lesions. Skin: Warm, dry with normal turgor. Normal color with no rashes, no lesions, and no evidence of cellulitis. MS/ Extremity: Pulses equal, no cyanosis. Neurovascular intact. Full, normal range of motion., bilateral aka Psych: Awake, alert, with orientation to person, place and time. Behavior, mood, and affect are within normal limits. 03:51 Neuro: Orientation: is normal, appropriate for stated age, no acute changes, Mentation: is normal, appropriate for stated age, no acute changes, Memory: is normal, appropriate for stated age, no acute changes, Cerebellar function: is grossly normal, is grossly normal based on the patient's age, Motor: is normal, Sensation: is normal, no obvious gross deficits, appropriate Gait: not tested. seizure activity, grand mal type is displayed, Vital Signs: 02:37 BP 147 / 77; Pulse 109; Resp 20; Temp 98.1; Pulse Ox 98% on R/A; Weight 96.16 kg; bm8 Height 6 ft. 1 in. ; Pain 0/10; 04:13 BP 120 / 70; Pulse 108; Resp 20; Temp 98; Pulse Ox 96% on R/A; Pain 0/10; bm8 04:43 BP 127 / 73; Pulse 108; Resp 22; Temp 98; Pulse Ox 95% on R/A; Pain 0/10; bm8 05:17 BP 143 / 76; Pulse 98; Resp 23; Pulse Ox 100% ; ss12 02:37 Body Mass Index 27.97 (96.16 kg, 185.42 cm) bm8 02:37 Pain Scale: Adult bm8 04:13 Pain Scale: Adult bm8 04:43 Pain Scale: Adult bm8 Patricia Coma Score: 02:45 Eye Response: to voice(3). Motor Response: obeys commands(6). Verbal Response: bm8 oriented(5). Total: 14. 03:51 Eye Response: spontaneous(4). Motor Response: obeys commands(6). Verbal Response: riya oriented(5). Total: 15. 04:13 Eye Response: to pain(2). Motor Response: localizes pain(5). Verbal Response: bm8 confused(4). Total: 11. 04:43 Eye Response: to pain(2). Motor Response: localizes pain(5). Verbal Response: bm8 confused(4). Total: 11. MDM: 02:47 Medical Screening Exam initiated riya 04:01 Differential diagnosis: cerebral vascular accident, drug overdose, cardiac arrhythmia, riya seizure, TIA. Data reviewed: vital signs, nurses notes, EMS record, lab test result(s), EKG, radiologic studies, plain films. Consideration of Admission/Observation Patient was admitted/placed on observation. Escalation of care including admission/observation considered. I considered the following discharge prescriptions or medication management in the emergency department Medications were administered in the Emergency Department. See MAR. Independent interpretation of the following test(s) in the Emergency Department EKG: See my EKG interpretation above. Test considered but Not performed: CT: no ct head. Historians other than the Patient: EMS: ems well informeed. Care significantly affected by the following chronic conditions: Congestive Heart Failure, Obesity. Counseling: I had a detailed discussion with the patient and/or guardian regarding the historical points, exam findings, and any diagnostic results supporting the discharge/admit diagnosis, the presence of at least one elevated blood pressure reading (>120/80) during this emergency department visit, lab results, radiology results, the need for further work-up and treatment in the hospital. 12/30 02:49 Order name: Basic Metabolic Panel; Complete Time: 04:00 [facility] 12/30 02:49 Order name: CBC with Diff; Complete Time: 03:39 12/30 02:49 Order name: LFT's; Complete Time: 04:00 12/30 02:49 Order name: Magnesium; Complete Time: 04:00 riya 12/30 02:49 Order name: NT PRO-BNP; Complete Time: 04:00 12/30 02:49 Order name: PT-INR; Complete Time: 03:39 12/30 02:49 Order name: Troponin HS; Complete Time: 04:00 12/30 02:49 Order name: Acetaminophen; Complete Time: 04:00 riya 12/30 02:49 Order name: ETOH Level; Complete Time: 03:39 12/30 02:49 Order name: Ptt, Activated; Complete Time: 03:39 12/30 02:49 Order name: Salicylate; Complete Time: 03:55 12/30 02:49 Order name: Urine Drug Screen; Complete Time: 04:00 12/30 02:49 Order name: Lipase; Complete Time: 04:00 12/30 02:49 Order name: UA Rfx Phuc Cult if indicated 12/30 03:10 Order name: Dilantin; Complete Time: 03:39 [facility] 12/30 02:49 Order name: XRAY Chest (1 view) 12/30 02:49 Order name: EKG; Complete Time: 02:50 12/30 02:49 Order name: Cardiac monitoring; Complete Time: 03:12 12/30 02:49 Order name: EKG - Nurse/Tech; Complete Time: 03:12 [facility] 12/30 02:49 Order name: IV Saline Lock; Complete Time: 03:12 riya 12/30 02:49 Order name: Labs collected and sent; Complete Time: 03:12 [facility] 12/30 02:49 Order name: O2 Per Protocol; Complete Time: 03:12 riya 12/30 02:49 Order name: O2 Sat Monitoring; Complete Time: 03:12 [facility] 12/30 02:49 Order name: Suicide Screening (Drift); Complete Time: 03:52 [facility] 12/30 02:49 Order name: Seizure Precautions; Complete Time: 03:12 [facility] 12/30 02:58 Order name: IV Saline Lock - Large Bore; Complete Time: 03:51 [facility] Administered Medications: 02:57 Not Given (Duplicate Order): ativan1 mg IVP once [facility] 03:05 Drug: Ativan IVP 2 mg IVP once Route: IVP; Site: right forearm; bm8 03:53 Follow up: Response: No adverse reaction bm8 03:20 Drug: NS 0.9% IV 500 ml 500 ml IV at 1 bolus once; to be given as a bolus over 30 bm8 minutes Volume: 500 ml; Route: IV; Rate: 1 bolus; Site: right forearm; 04:44 Follow up: Response: No adverse reaction; IV Status: Completed infusion bm8 03:20 Drug: Keppra IV 2000 mg IV at per protocol once Route: IV; Rate: per protocol; Site: 8 right forearm; 04:11 Follow up: Response: No adverse reaction; IV Status: Completed infusion bm8 03:51 Drug: Magnesium Sulfate IVPB 2 grams IVPB once over 2 hrs Route: IVPB; Infused Over: 2 bm8 hrs; Site: right forearm; 04:12 Follow up: Response: No adverse reaction; IV Status: Completed infusion bm8 03:51 Drug: Famotidine IVP 20 mg IVP once; dilute with 10 mL 0.9% NaCl; give over 2 minutes bm8 Route: IVP; Site: right forearm; 03:54 Follow up: Response: No adverse reaction bm8 03:51 Drug: Fosphenytoin IVPB 1 grams IVPB once; (mix in 50 to 100mL NS) Route: IVPB; Site: 8 right forearm; 04:11 Follow up: Response: No adverse reaction; IV Status: Completed infusion bm8 03:52 Drug: Thiamine IV 100 mg IV at per protocol once Route: IV; Rate: per protocol; Site: bm8 right forearm; 04:11 Follow up: Response: No adverse reaction; IV Status: Completed infusion bm8 03:52 Drug: Banana Bag - (Multivitamin IV 1 amp, NS 0.9% IV 1000 ml, Thiamine IV 100 mg, bm8 foLIC Acid IVPB 1 mg) IV at 125 ml/hr once Route: IV; Rate: 125 ml/hr; Site: right forearm; 04:44 Follow up: Response: No adverse reaction; IV Status: Infusion continued upon admission bm8 04:44 Not Given (Physician Discretion): ativan1 mg IVP once bm8 Disposition Summary: 12/30/24 04:00 Hospitalization Ordered Notes: Hospitalization Status: Inpatient Admission riya Provider: Fili Ramirez cha Location: Telemetry/MedSurg (Inpatient) riya Condition: Fair riya Problem: new riya Symptoms: have improved riya Bed/Room Type: Standard riya Room Assignment: 215(12/30/24 04:41) vk Diagnosis - Epileptic seizures related to external causes, not intractable, without status riya epilepticus - Abnormal level of other drugs, medicaments and biological substances in specimens riya from other organs, systems and tissues - Alcohol abuse riya - Alcohol abuse with intoxication riya - Hypokalemia riya Forms: - Medication Reconciliation Form riya - SBAR form riya - Leadership Thank You Letter riya Signatures: Dispatcher [employer] EDMS Aaron Pichardo MD MD cha Kruse, Vivian vk McDonald, Brad RN RN bm8 Corrections: (The following items were deleted from the chart) 02:50 02:50 BASIC METABOLIC PANEL+C.LAB.BRZ ordered. EDMS EDMS 02:50 02:50 CBC+H.LAB.BRZ ordered. EDMS EDMS 02:50 02:50 HEPATIC FUNCTION+C.LAB.BRZ ordered. EDMS EDMS 02:50 02:50 MAGNESIUM+C.LAB.BRZ ordered. EDMS EDMS 02:50 02:50 PROBNP+C.LAB.BRZ ordered. EDMS EDMS 02:50 02:50 PROTIME (+INR)+COAG.LAB.BRZ ordered. EDMS EDMS 02:50 02:50 Troponin High Sensitivity+C.LAB.BRZ ordered. EDMS EDMS 02:50 02:50 ACETAMINOPHEN+C.LAB.BRZ ordered. EDMS EDMS 02:50 02:50 ETHANOL+C.LAB.BRZ ordered. EDMS EDMS 02:50 02:50 PTT, ACTIVATED+COAG.LAB.BRZ ordered. EDMS EDMS 02:50 02:50 SALICYLATE+C.LAB.BRZ ordered. EDMS EDMS 02:50 02:50 URINE DRUG SCREEN+UC.LAB.BRZ ordered. EDMS EDMS 02:50 02:50 LIPASE+C.LAB.BRZ ordered. EDMS EDMS 02:50 02:50 UA Rfx Phuc Cult if indicated+U.LAB.BRZ ordered. EDMS EDMS 04:41 04:00 riya vk
[2024-12-30 04:11] LABS: Sqamous Epithelial None Seen /HPF (None Seen); Urine Culture Reflex Order NOT NEEDED; Urine Microscopic Reflex YN ORDER UMIC
[2024-12-30] MEDS ORDERED: ONDANSETRON 4 MG/2 ML VIAL IV PRN (04:35)
--- NOTE | 2024-12-30 05:34 | ER ---
Nurse's Notes [facility] Name: Karlos Leblanc Age: 59 yrs Sex: Male : 1965 Arrival Date: 12/30/2024 Time: 02:36 Bed 3 Private MD: Diagnosis: Epileptic seizures related to external causes, not intractable, without status epilepticus;Abnormal level of other drugs, medicaments and biological substances in specimens from other organs, systems and tissues;Alcohol abuse;Alcohol abuse with intoxication;Hypokalemia Presentation: 12/30 02:37 Chief complaint: EMS states: family called for what looked like a seizure. family bm8 stated that he had been drinking, then started seizing for about a min. 02:37 Coronavirus screen: At this time, the client does not indicate any symptoms associated bm8 with coronavirus-19. Ebola Screen: No symptoms or risks identified at this time. Initial Sepsis Screen: Does the patient meet any 2 criteria? Does the patient have a suspected source of infection? No. Patient's initial sepsis screen is negative. Risk Assessment: Do you want to hurt yourself or someone else? Patient reports no desire to harm self or others. Onset of symptoms was December 30, 2024 at 01:50. 02:37 Method Of Arrival: EMS: [facility] bm8 02:37 Acuity: KENIA 2 bm8 Triage Assessment: 02:45 General: Appears in no apparent distress. comfortable, obese, unkempt, Behavior is bm8 cooperative, Smells of alcohol, urine, feces. Pain: Denies pain. EENT: No deficits noted. No signs and/or symptoms were reported regarding the EENT system. Neuro: Level of Consciousness is awake, obeys commands, Oriented to person, place, time, situation, Appropriate for age Coiled Tubing Operator are equal bilaterally Speech is normal, Facial symmetry appears normal, Pupils are PERRLA, Pupil Size: 3 mm sluggish, Reports weakness in generalized. Cardiovascular: Denies chest pain, Heart tones S1 S2 present Capillary refill < 3 seconds in bilateral fingers Patient's skin is warm and dry. Rhythm is sinus tachycardia. Respiratory: Airway is patent Respiratory effort is even, unlabored, Respiratory pattern is regular, symmetrical, Breath sounds are clear bilaterally. GI: No signs and/or symptoms were reported involving the gastrointestinal system. : No signs and/or symptoms were reported regarding the genitourinary system. Derm: No signs and/or symptoms reported regarding the dermatologic system. Musculoskeletal: Reports weakness in generalized. Historical: - Allergies: 04:07 NKDA; bm8 - Home Meds: 04:25 lisinopril 10 mg Oral tablet 1 tab daily [Active]; metformin 500 mg Oral tablet 1 tab 2 bm8 times per day [Active]; multivitamin oral tablet [Active]; sertraline 100 mg oral tablet 1 tab daily [Active]; thiamine HCl (vitamin B1) 100 mg Oral tablet 1 tab daily [Active]; escitalopram oxalate 20 mg oral tablet 1 tab daily [Active]; folic acid 0.8 mg Oral capsule 1 cap daily [Active]; levetiracetam 1,000 mg oral tablet 1.5 tabs 2 times per day [Active]; gabapentin 100 mg oral capsule 2 caps daily [Active]; clopidogrel 75 mg oral tablet 1 tab daily [Active]; carvedilol 6.25 mg oral tablet 1 tab daily [Active]; aspirin 81 mg Oral tablet daily [Active]; buspirone 7.5 mg Oral capsule 1 cap daily [Active]; phenytoin 100 mg Oral tablet,chewable 4 tabs daily [Active]; oxycodone 5 mg Oral capsule 1 caps q6 hrs PRN for pain [Active]; tramadol 50 mg Oral tablet 1 tab q 6hrs PRN as needed for breathrough pain [Active]; lovastatin 20 mg Oral tablet 1 tab every evening [Active]; Tessalon Perles Oral 100 mg every 8 hours for Cough and Congestion [Active]; Ventolin 108mcg/act Nebulizer 1 puff 1 puff q8 hrs PRN SOB [Active]; lidocaine cream 5%, apply to right foot during bandage change M,W,F [Active]; ipratropium-albuterol 0.5 mg-3 mg(2.5 mg base)/3 mL Inhl Solution for Nebulization 3 mL 4 times per day [Active]; Narcan 4 mg/actuation intranasal spray, non-aerosol 1 spray every 2 to 3 minutes for opioid overdose [Active]; lorazepam 2 mg/mL injection Syringe 0.5 mL inject IM as needed for seizures [Active]; - PMHx: 04:07 Chronic obstructive lung disease; Hypertension; Myocardial infarction; Seizures; bm8 vascular disease (Right toes amputati); - PSHx: 04:07 cardiac stents; Left Leg Amputation (below the knee); Right toes amputation; bm8 - Immunization history:: Adult Immunizations up to date. - Infectious Disease History:: Denies. - Family history:: not pertinent. - Social history:: Smoking status: Patient reports the use of cigarette tobacco products, Patient uses alcohol, admits to "couple of beers" a day. Screenin:13 [facility] ED Fall Risk Assessment (Adult) History of falling in the last 3 months, bm8 including since admission No falls in past 3 months (0 pts) Confusion or Disorientation Yes (5 pts) Intoxicated or Sedated Yes (3 pts) Impaired Gait Yes (1 pt) Mobility Assist Device Used Yes (1 pt) Altered Elimination Yes (1 pt) Score/Fall Risk Level 3 or more points = High Risk Oriented to surroundings, Maintained a safe environment, Educated pt \\T\\ family on fall prevention, incl call for assistance when getting out of bed, Assessed \\T\\ reinforced patient's understanding of fall precautions, Hourly rounding (assess needs \\T\\ fall precautionary measures) done, Used ambulatory aids as needed (educated on \\T\\ assisted with), Used gait belt as appropriate Implemented a Fall Risk Plan of Care. Abuse screen: Denies threats or abuse. Nutritional screening: No deficits noted. Tuberculosis screening: No symptoms or risk factors identified. Assessment: 03:02 Reassessment: Pt had a 30 sec long seizure. provider notified and new orders received. bm8 04:13 Reassessment: Patient appears in no apparent distress at this time. Patient and/or bm8 family updated on plan of care and expected duration. Pain level reassessed. Reassessment: pt has been cleaned, purwic applied, placed in diaper and linen was changed. General: Appears in no apparent distress. comfortable, Behavior is drowsy. Neuro: Level of Consciousness is post ictal. Derm: pt has stage one pressure over on entire buttocks areas, skin breakdown noted due to incontience. 04:43 Reassessment: Patient appears in no apparent distress at this time. No changes from bm8 previously documented assessment. Patient and/or family updated on plan of care and expected duration. Pain level reassessed. Patient states symptoms have improved. 05:18 Reassessment: Patient appears in no apparent distress at this time. No changes from ss12 previously documented assessment. Patient and/or family updated on plan of care and expected duration. Pain level reassessed. Vital Signs: 02:37 BP 147 / 77; Pulse 109; Resp 20; Temp 98.1; Pulse Ox 98% on R/A; Weight 96.16 kg; bm8 Height 6 ft. 1 in. ; Pain 0/10; 04:13 BP 120 / 70; Pulse 108; Resp 20; Temp 98; Pulse Ox 96% on R/A; Pain 0/10; bm8 04:43 BP 127 / 73; Pulse 108; Resp 22; Temp 98; Pulse Ox 95% on R/A; Pain 0/10; bm8 05:17 BP 143 / 76; Pulse 98; Resp 23; Pulse Ox 100% ; ss12 02:37 Body Mass Index 27.97 (96.16 kg, 185.42 cm) bm8 02:37 Pain Scale: Adult bm8 04:13 Pain Scale: Adult bm8 04:43 Pain Scale: Adult bm8 Patricia Coma Score: 02:45 Eye Response: to voice(3). Motor Response: obeys commands(6). Verbal Response: bm8 oriented(5). Total: 14. 03:51 Eye Response: spontaneous(4). Motor Response: obeys commands(6). Verbal Response: riya oriented(5). Total: 15. 04:13 Eye Response: to pain(2). Motor Response: localizes pain(5). Verbal Response: bm8 confused(4). Total: 11. 04:43 Eye Response: to pain(2). Motor Response: localizes pain(5). Verbal Response: bm8 confused(4). Total: 11. ED Course: 02:37 Patient arrived in ED. [id number] 02:45 Patient has correct armband on for positive identification. Bed in low position. Call bm8 light in reach. Side rails up X2. Adult w/ patient. Seizure precautions initiated. 02:45 Client placed on continuous cardiac and pulse oximetry monitoring. NIBP monitoring bm8 applied. residential monitor on. Pulse ox on. NIBP on. Door closed. Noise minimized. Warm blanket given. Pillow given. Verbal reassurance given. Head of bed elevated. Turned to right side. 02:45 Inserted saline lock: 18 gauge in right forearm, using aseptic technique. Blood bm8 collected. Flushed with 10 mL NS. 02:45 Initial lab(s) drawn, by ak, sent to lab. Urine collected: clean catch specimen, clear, bm8 EKG done, by ED staff, reviewed by Aaron Pichardo MD. 02:47 Aaron Pichardo MD is Attending Physician. [facility] 02:49 Lan Montenegro, RN is Primary Nurse. ss12 03:05 Oxygen administration via non-rebreather mask \\T\\ 15L/min Response to oxygen therapy: bm8 symptoms improved. 03:34 XRAY Chest (1 view) In Process Unspecified. EDMS 03:55 Fili Ramirez MD is Hospitalizing Provider. riya 04:07 Triage completed. bm8 04:18 No provider procedures requiring assistance completed. bm8 04:20 Patient maintains SpO2 saturation greater than 95% on room air. bm8 04:43 Provided Education on: need for admission. bm8 04:43 Patient admitted, IV remains in place. bm8 Administered Medications: 02:57 Not Given (Duplicate Order): ativan1 mg IVP once riya 03:05 Drug: Ativan IVP 2 mg IVP once Route: IVP; Site: right forearm; bm8 03:53 Follow up: Response: No adverse reaction bm8 03:20 Drug: NS 0.9% IV 500 ml 500 ml IV at 1 bolus once; to be given as a bolus over 30 bm8 minutes Volume: 500 ml; Route: IV; Rate: 1 bolus; Site: right forearm; 04:44 Follow up: Response: No adverse reaction; IV Status: Completed infusion bm8 03:20 Drug: Keppra IV 2000 mg IV at per protocol once Route: IV; Rate: per protocol; Site: bm8 right forearm; 04:11 Follow up: Response: No adverse reaction; IV Status: Completed infusion bm8 03:51 Drug: Magnesium Sulfate IVPB 2 grams IVPB once over 2 hrs Route: IVPB; Infused Over: 2 bm8 hrs; Site: right forearm; 04:12 Follow up: Response: No adverse reaction; IV Status: Completed infusion bm8 03:51 Drug: Famotidine IVP 20 mg IVP once; dilute with 10 mL 0.9% NaCl; give over 2 minutes bm8 Route: IVP; Site: right forearm; 03:54 Follow up: Response: No adverse reaction bm8 03:51 Drug: Fosphenytoin IVPB 1 grams IVPB once; (mix in 50 to 100mL NS) Route: IVPB; Site: 8 right forearm; 04:11 Follow up: Response: No adverse reaction; IV Status: Completed infusion bm8 03:52 Drug: Thiamine IV 100 mg IV at per protocol once Route: IV; Rate: per protocol; Site: 8 right forearm; 04:11 Follow up: Response: No adverse reaction; IV Status: Completed infusion bm8 03:52 Drug: Banana Bag - (Multivitamin IV 1 amp, NS 0.9% IV 1000 ml, Thiamine IV 100 mg, bm8 foLIC Acid IVPB 1 mg) IV at 125 ml/hr once Route: IV; Rate: 125 ml/hr; Site: right forearm; 04:44 Follow up: Response: No adverse reaction; IV Status: Infusion continued upon admission bm8 04:44 Not Given (Physician Discretion): ativan1 mg IVP once bm8 Medication: 04:13 VIS not applicable for this client. bm8 Outcome: 04:00 Decision to Hospitalize by Provider. [facility] 05:33 Patient left the ED. 8 Signatures: Dispatcher [employer] EDMS Aaron Pichardo MD MD cha Jeffries, Jennifer [email or web address] McDonald, Brad, RN RN 8 Lan Montenegro RN RN ss12 Corrections: (The following items were deleted from the chart) 03:52 03:52 Thiamine IV 100 mg IV at per protocol in left forearm bm8 bm8 03:53 03:51 Fosphenytoin IVPB 1 grams IVPB in left forearm 8 bm8 03:53 03:51 Famotidine IVP 20 mg IVP in left forearm 8 bm8 03:53 03:51 Magnesium Sulfate IVPB 2 grams IVPB in left forearm over 2 hrs 8 bm8 03:53 03:20 Keppra IV 2000 mg IV at per protocol in left forearm 8 bm8 03:53 03:52 Banana Bag - (NS 0.9% IV 1000 ml, foLIC Acid IVPB 1 mg, Thiamine IV 100 mg, bm8 Multivitamin IV 1 amp) IV at 125 ml/hr in left forearm 8 04:19 04:18 Inserted saline lock: 18 gauge in right forearm, using aseptic technique. Blood bm8 collected. Flushed with 10 mL NS bm8
[2024-12-30] MEDS ORDERED: LORazepam 2 MG/ML VIAL IV PRN (05:44)
--- NOTE | 2024-12-30 06:02 | P.HP ---
Certification for Inpatient Patient admitted to: Inpatient With expected LOS: >2 Midnights Patient will require the following post-hospital care: None Practitioner: I am a practitioner with admitting privileges, knowledge of patient current condition, hospital course, and medical plan of care. Services: Services provided to patient in accordance with Admission requirements found in Title 42 Section 412.3 of the Code of Federal Regulations Patient History Date of Service: 12/30/24 Reason for admission: Acute seizure with alcohol use disorder. History of Present Illness: Patient is a 59-year-old male with past medical history of type 2 diabetes mellitus, essential hypertension, alcohol use disorder, depression, seizure disorder, CVA, bilateral lower extremities PVD, wound right foot with recent toes amputation currently has dressing on the wound, brought to the ER today after having a seizure activity at home. Upon arrival to ER, patient had had another seizure. During admission assessment, patient was not able to answer any questions because he was in the postictal phase of the seizure that he had in ER, he was deep asleep, patient vital signs stable. My H&P is based on report received from ER Dr. Pichardo, the ER nurse, and from patient EMR. Full report received states [facility] after having amputations right foot that currently still has dressing on it. Patient also has left below-knee amputation remote. During assessment, it appears patient had been drinking alcohol at home, could smell alcohol on him during assessment. It appears patient also has some alcohol use disorder. According to report received from the nurse, he states when patient arrived to ER, he was fully awake and alert x 3, was able to communicate appropriately and follow all commands appropriately. Allergies No Known Allergies Allergy (Verified 11/17/23 03:52) Home Medications: Buspirone HCl 2 tab PO BID #60 tab 01/21/24 Escitalopram Oxalate 20 mg PO DAILY #30 tab 01/21/24 Multivit-Min/Iron/Folic Acid/K [Multi-Day Plus Minerals Tablet] 1 tab PO DAILY #30 tab 01/21/24 Sertraline [Zoloft*] 100 mg PO DAILY #30 tab 01/21/24 methocarbamoL [Methocarbamol] 500 mg PO TID #90 tab 01/21/24 Collagenase [Santyl Ointment*] 1 appl TOP DAILY #1 tube 03/12/24 Aspirin [Aspirin EC 81 MG] 81 mg PO DAILY 04/16/24 Atorvastatin Calcium 40 mg PO BEDTIME 04/16/24 PHENYTOIN ER Cap [Dilantin ER Cap*] 300 mg PO BEDTIME 04/16/24 levETIRAcetam [Keppra*] 1,500 mg PO BID 04/16/24 Clopidogrel Bisulfate [Plavix] 75 mg PO DAILY #30 tab 08/26/24 Gabapentin [Neurontin*] 200 mg PO TID #120 cap 08/26/24 Hydrocodone 10/APAP 325 [[place] 10/325*] 1 tab PO Q6H PRN #30 tab 08/26/24 - Past Medical/Surgical History Diabetic: No -: HTN -: CHF, diastolic dysfunction -: COPD -: CAD -: PVD -: Left & right partial foot amputation -: History of osteomyelitis -: History of drug use -: Alcohol abuse -: Tobacco abuse -: GERD -: seizures -: Rt great toe & 2nd toe amputated-Dec 2015 -: Left partial foot amputation-January 2019 -: right partial foot amputation Psychosocial/ Personal History: Was previously staying at home in [place], reportedly recently evicted - Family History Father -: Cancer Mother -: Cancer - Social History Smoking Status: Current every day smoker Alcohol use: No CD- Drugs: No Caffeine use: Yes Place of Residence: Home Review of Systems is unable to be obtained Neurological: Seizures (Postictal), Other Physical Examination - Physical Exam General: Other (Postictal and sleeping.) HEENT: Atraumatic, Normocephalic, PERRLA, Sclerae nonicteric Neck: Supple, No LAD, Without JVD or thyroid abnormality Respiratory: Clear to auscultation bilaterally, Normal air movement Cardiovascular: Normal pulses, Normal S1 S2, No gallops, No rubs, No murmurs Gastrointestinal: Normal bowel sounds, No masses, No rebound, No guarding Musculoskeletal: Other (Right foot toes amputation, removal left below-knee amputation.) Integumentary: Skin breakdown, Other (Right foot toes amputation with current dressing.) Neurological: Other (Unable to assess at this time due to patient postictal phase.) - Studies Laboratory Data (last 24 hrs) 12/30/24 12/30/24 12/30/24 03:02 03:02 03:02 WBC 11.10 H Hgb 12.4 L Hct 36.5 L Plt Count 202 PT 13.8 H INR 1.23 APTT 35.7 Sodium 133 L Potassium 3.3 L BUN 8 Creatinine 0.92 Glucose 101 Magnesium 2.3 Total Bilirubin 0.2 AST 22 ALT 26 Alkaline Phosphatase 117 Lipase 51 Male Exam - Male Exam Inguinal exam: No hernias Assessment and Plan - Plan Patient admitted inpatient with diagnosis of seizure disorder, and alcohol use disorder. Patient brought to the ER after having multiple seizure activities at home. (1) Keppra 500 mg IV twice daily. Reviewing patient current medications that [facility] was [facility] with, shows that patient was taking Keppra p.o. Patient received a loading dose of Keppra, and Dilantin ER, patient Dilantin level was 1.2. -Keppra 500 mg IV twice daily. Patient medication may need to be optimized if seizure continues. - Consult neurologist Dr. Escobar. - Order EEG. - Ativan 2 mg IV as needed every 2 hours for seizure and alcohol withdrawal. (2)Acohol use disorder. - CIWA as needed for change of condition. -Thiamine 100 mg IV daily. -Folic acid 1 mg p.o. daily. (3)Chronic type 2 diabetes mellitus. - ACHS with moderate sliding scale coverage. Discharge Plan: Home - Advance Directives Does patient have a Living Will: No Does patient have a Durable POA for Healthcare: No - Code Status/Comfort Care Code Status Assessed: No Code Status: Full Code Critical Care: No Time Spent Managing Pts Care (In Minutes): 55
--- NOTE | 2024-12-30 06:12 | RAD REPORT ---
INDICATION: COUGH COMPARISON: Chest radiograph July 12, 2024 FINDINGS: Single frontal view of the chest was obtained. SUPPORT DEVICES: None HEART/MEDIASTINUM: Cardiomediastinal contours are normal. LUNGS/PLEURA: Lungs are clear. No pleural effusion or pneumothorax. OTHER: No other significant findings. IMPRESSION: No acute findings. Electronically signed by: Shaggy Monte DO 12/30/2024 03:39 AM CDT RP NR Due to temporary technical issues with the PACS[employer] reporting system, reports are being nydia d by the in-house radiologist without review as a courtesy to ensure prompt reporting the interpreting radiologist is fully responsible for the content of the report. Transcribed Date/Time: 12/30/2024 6:11 AM
[2024-12-30] MEDS: INSULIN REGULAR (HUMAN) 100 UNIT/ML SQ SCH (07:30)
[2024-12-30] MEDS: FOLIC ACID 1 MG TABLET PO SCH (09:00)
[2024-12-30] MEDS: THIAMINE 200 MG/2 ML INJ IVP SCH (09:38)
[2024-12-30] MEDS: D5 0.45 NS 1,000 ML IV SCH (09:38)
[2024-12-30] MEDS: levETIRAcetam 500 MG in NA CHLORIDE 0.9% 100 ML IV SCH (09:38)
[2024-12-30 10:45] VITALS: BMI 27.9
[2024-12-30] MEDS: KCL 20 MEQ/100 mL IVPB 20 MEQ/100 ML BAG IV SCH ×2 (12:14→14:40)
[2024-12-31 07:19] LABS: Absolute Lymphocytes (CBC) 1.8 K/uL (0.7-4.9); Hematocrit 33.6 % (39.6-49.0); Hemoglobin 11.7 g/dL (13.6-17.9); MCH 31.4 pg (27.0-35.0); MCHC 34.9 g/dL (32.0-36.0); MCV 90.2 fL (80-100); MPV 7.4 fL (7.6-11.3); Nucleated RBC Absolute Count 0.0 (0-0); Nucleated Red Blood Cells % 0.1 % (0-0); RBC Red Blood Cell Count 3.73 M/uL (4.33-5.43); White Blood Count 7.80 thou/uL (4.3-10.9)
[2024-12-31 07:40] LABS: ALT/SGPT 30.0 U/L (16-61); AST/SGOT 29.0 U/L (15-37); Albumin 2.8 g/dL (3.4-5.0); Albumin/Globulin Ratio 0.7 (1.1-1.8); Alkaline Phosphatase 100.0 U/L (45-117); Anion Gap 14.9 mEq/L (5.0-15.0); BUN Blood Urea Nitrogen 6.0 mg/dL (7-18); Globulin 4.2 g/dL (2.3-3.5); Glucose Level 110.0 mg/dL (74-106); Potassium 3.9 mEq/L (3.5-5.1)
[2024-12-31] MEDS ORDERED: ZINC OXIDE 20% OINTMENT 60gm TOP PRN (12:04)
[2024-12-31] MEDS: DIPHENOX/ATROP SULF 1 TAB PO ONE (12:44)
[2024-12-31] MEDS: GABAPENTIN 100 MG CAP PO SCH (12:44)
[2024-12-31] MEDS: TRAMADOL HCL 50 MG TAB PO PRN (20:04)
[2024-12-31] MEDS: BUSPIRONE HCL 5 MG TABLET PO SCH (20:05)
[2024-12-31] MEDS: levETIRAcetam 500 MG TAB PO SCH (20:05)
[2024-12-31] MEDS: POTASSIUM CL SA 10 MEQ TAB PO ONE (20:05)
[2025-01-01 06:19] LABS: ALT/SGPT 31.0 U/L (16-61); Albumin 2.8 g/dL (3.4-5.0); Albumin/Globulin Ratio 0.6 (1.1-1.8); Alkaline Phosphatase 93.0 U/L (45-117); Anion Gap 10.3 mEq/L (5.0-15.0); BUN Blood Urea Nitrogen 16.0 mg/dL (7-18); Globulin 4.4 g/dL (2.3-3.5); Glucose Level 101.0 mg/dL (74-106)
[2025-01-01 06:20] LABS: AST/SGOT 37.0 U/L (15-37); Potassium 4.3 mEq/L (3.5-5.1)
[2025-01-01 06:43] LABS: Absolute Lymphocytes (CBC) 2.6 K/uL (0.7-4.9); Hematocrit 33.2 % (39.6-49.0); Hemoglobin 11.4 g/dL (13.6-17.9); MCH 31.2 pg (27.0-35.0); MCHC 34.4 g/dL (32.0-36.0); MCV 90.7 fL (80-100); MPV 8.1 fL (7.6-11.3); Nucleated RBC Absolute Count 0.0 (0-0); Nucleated Red Blood Cells % 0.2 % (0-0); RBC Red Blood Cell Count 3.66 M/uL (4.33-5.43); White Blood Count 8.80 thou/uL (4.3-10.9)
[2025-01-01] MEDS ORDERED: HOME MED 1 EA UNK (Folic Acid [Folic Acid] 0.8 MG Capsule) PO SCH (09:00)
[2025-01-01] MEDS: COLLAGENASE 30 GM OINTMENT TOP SCH (09:00)
[2025-01-01 09:19] VITALS: O2SAT 96
[2025-01-01] MEDS: ASPIRIN EC 81 MG TAB PO SCH (10:01)
[2025-01-01] MEDS: ESCITALOPRAM 20 MG TAB PO SCH (10:01)
[2025-01-01 17:31] VITALS: BP 135/62; TEMP 98
--- NOTE | 2025-01-02 09:09 | EEG ---
CHART: [id number] TEST ID#: [id number] DATE OF STUDY: 12/30/2024 THE EEG WAS RECORDED PORTABLE IN THE PATIENT'S ROOM ON A 17 CHANNEL MACHINE. ELECTRODES WERE APPLIED IN THE USUAL MANNER USING THE INTERNATIONAL 10-20 SYSTEM. THE WAKING BACKGROUND RHYTHM IN THIS RECORD CONSISTS OF FAIRLY WELL DEVELOPED AND FAIRLY WELL ORGANIZED WAVES OF 8.5-9 HZ., MAXIMAL IN THE POSTERIOR HEAD REGIONS WHICH ATTENUATE NORMALLY WITH EYE OPENING. LOW-VOLTAGE 18-22 HZ ACTIVITY IS EXPRESSED IN THE FRONTAL REGIONS. THERE ARE NO FOCAL OR LATERALIZING FEATURES. NO EPILEPTIFORM ACTIVITY APPEARS. SLEEP OCCURRED NATURALLY. IN ADDITION TO NORMAL SLEEP PATTERNS ARE PRESENT. HYPERVENTILATION WAS NOT PERFORMED. PHOTIC STIMULATION PRODUCED NO DRIVING BILATERALLY. IMPRESSION: NORMAL EEG FOR THE AGE OF THE PATIENT IN [place], DROWSINESS AND SLEEP.
== END 2025-01-01 17:33 | disposition home or self-care (01) | DRG 101 ==
LOC: ER 02:36 → ERHOLD 04:30 → 2ND 04:56
PROVIDERS: ADMIT Hospitalist; ATTEND Hospitalist
DX: G40.909 Epilepsy, unspecified, not intractable, without status epilepticus (principal); E87.6 Hypokalemia; F10.129 Alcohol abuse with intoxication, unspecified; Z79.899 Other long term (current) drug therapy; Z79.84 Long term (current) use of oral hypoglycemic drugs; Z79.02 Long term (current) use of antithrombotics/antiplatelets; Z79.82 Long term (current) use of aspirin; Z79.891 Long term (current) use of opiate analgesic; Z79.51 Long term (current) use of inhaled steroids; J44.9 Chronic obstructive pulmonary disease, unspecified; I10 Essential (primary) hypertension; I25.2 Old myocardial infarction; Z89.421 Acquired absence of other right toe(s); Z98.890 Other specified postprocedural states; Z86.73 Personal history of transient ischemic attack (TIA), and cerebral infarction without residual deficits; E11.51 Type 2 diabetes mellitus with diabetic peripheral angiopathy without gangrene; Z89.512 Acquired absence of left leg below knee; Z72.0 Tobacco use; Z89.432 Acquired absence of left foot; Z89.431 Acquired absence of right foot; F32.A Depression, unspecified; K21.9 Gastro-esophageal reflux disease without esophagitis; Y90.3 Blood alcohol level of 60-79 mg/100 ml
CPT/HCPCS: 36415; 71045; 80048; 80053; 80076; 80143; 80179; 80185; 80307; 81001; 82077; 82947; 83690; 83735; 83880; 84484; 85025; 85610; 85730; 93005; 95819; 96365; 96367; 96375; 99285; J1953; J3411; J3475; J3480; J3590; J7030; J7040; J7799; Q2009

== ENCOUNTER 2025-01-06 21:18 | Inpatient (IN) | payer OTHER ==
[2025-01-06 22:20] LABS: PT Prothrombin Time 13.0 SECONDS (10-13.0); PTT, Activated Partial Thromb 41.5 SECONDS (27.2-37.4); Protime INR 1.16
--- NOTE | 2025-01-06 22:25 | RAD REPORT ---
EXAMINATION: ONE VIEW CHEST XR CLINICAL INDICATION: Male, 59 years old.,sepsis TECHNIQUE: Frontal chest projection is submitted. Examination is limited by patient positioning and t echnique. COMPARISON: 12/30/2024 FINDINGS: The lungs are well inflated. Developing medial right basal airspace opacity. No pneumothorax or siza ble effusion. The heart is normal in size. Mediastinal contours are unremarkable. IMPRESSION: Developing medial right basal airspace opacity, could reflect atelectasis or developing pneumonia.
[2025-01-06 22:27] LABS: Absolute Lymphocytes (CBC) 0.7 K/uL (0.7-4.9); Hematocrit 36.4 % (39.6-49.0); Hemoglobin 12.7 g/dL (13.6-17.9); MCH 31.7 pg (27.0-35.0); MCHC 34.7 g/dL (32.0-36.0); MCV 91.2 fL (80-100); MPV 8.1 fL (7.6-11.3); Nucleated RBC Absolute Count 0.0 (0-0); Nucleated Red Blood Cells % 0.1 % (0-0); RBC Red Blood Cell Count 3.99 M/uL (4.33-5.43); White Blood Count 16.00 thou/uL (4.3-10.9)
--- NOTE | 2025-01-06 22:30 | RAD REPORT ---
EXAMINATION: XR Foot Right 3 View CLINICAL INDICATION: Male, 59 years old. [facility] MAIN cellulitis Bed Name: [id number] TECHNIQUE: 3 view radiographs of the right foot were obtained. COMPARISON: No prior exam. FINDINGS: Stable osseous irregularity and early erosion at the fourth and fifth metatarsal stumps. Di ffuse osteopenia limits evaluation. Lateral soft tissue defect at the midfoot amputation stump again seen. IMPRESSION: Stable findings as above, concerning for ongoing osteomyelitis at the fourth and fifth metatarsal doni mps.
--- NOTE | 2025-01-06 22:31 | RAD REPORT ---
EXAMINATION: XR Tib Fib Right CLINICAL INDICATION: Male, 59 years old. leg pain TECHNIQUE: 2 view radiograph of the right tibia and fibula were obtained. COMPARISON: No prior exam. FINDINGS: No evidence of fracture or dislocation. Sequelae of midfoot amputation, with overlying soft tissue irregularity. Moderate calcaneal spur. Normal alignment. Diffuse osteopenia limits evaluation. Moderate degenerative changes of the knee. Vascular calcifications. IMPRESSION: Sequelae of midfoot amputation with overlying soft tissue irregularity. Moderate degenerative changes of the knee.
[2025-01-06 22:32] LABS: ALT/SGPT 30.0 U/L (16-61); AST/SGOT 44.0 U/L (15-37); Albumin 2.7 g/dL (3.4-5.0); Albumin/Globulin Ratio 0.5 (1.1-1.8); Alkaline Phosphatase 75.0 U/L (45-117); Anion Gap 15.5 mEq/L (5.0-15.0); BUN Blood Urea Nitrogen 56.0 mg/dL (7-18); Globulin 5.8 g/dL (2.3-3.5); Glucose Level 134.0 mg/dL (74-106); NT PRO-BNP 2411.0 pg/mL (<125); Potassium 3.5 mEq/L (3.5-5.1); Troponin High Sensitivity 33.4 pg/mL (<58.9)
[2025-01-06] MEDS ORDERED: ONDANSETRON 4 MG/2 ML VIAL ONE (22:40)
[2025-01-06] MEDS ORDERED: MORPHINE 4 MG/ML SYR ONE (22:41)
[2025-01-06] MEDS ORDERED: ACETAMINOPHEN 500 MG TAB ONE (22:41)
[2025-01-06] MEDS ORDERED: KETOROLAC 30 MG/ML INJ ONE (22:41)
[2025-01-06] MEDS ORDERED: NA CHLORIDE 0.9% 3,000 ML ONE (22:42)
[2025-01-06] MEDS ORDERED: CEFEPIME 2 GM VIAL ONE (22:42)
[2025-01-06] MEDS ORDERED: VANCOMYCIN 1 GM/VIAL ONE (22:42)
[2025-01-06] MEDS ORDERED: NA CHLORIDE 0.9% 500 ML ONE (22:43)
[2025-01-06] MEDS ORDERED: NA CHLORIDE 0.9% 100 ML ONE (22:43)
--- NOTE | 2025-01-06 23:31 | EDPHYS ---
Physician Documentation [facility] Name: Karlos Leblanc Age: 59 yrs Sex: Male : 1965 Arrival Date: 01/06/2025 Time: 21:18 Bed 28 Private MD: ED Physician Neto Cornelius HPI: 01/06 21:25 This 59 yrs old Male presents to ER via Unassigned with complaints of Right sp4 leg pain . 01/07 01:27 Patient is 59-year-old male who is having difficult socioeconomic situation arrives sp4 with EMS for persistent pain in the right lower extremity. EMS reports that patient's neighbors have called EMS secondary to the fact that patient resides in unsanitary conditions and is having progressively worsening pain in the right lower extremity. Patient was found in deplorable conditions. Primary complaint right lower extremity pain and history of prior right lower extremity transmetatarsal amputation. Additionally patient has poor mobility and history of left below-knee amputation.. 01:29 Extensive past medical history including type 2 diabetes, essential hypertension, sp4 alcoholism, depression, seizure disorder, CVA, bilateral lower extremity peripheral vascular disease, right foot transmetatarsal amputation, right foot osteomyelitis, left lower extremity below-knee amputation, medications include buspirone 10 mg p.o. twice daily, escitalopram 20 mg p.o. daily, multivitamin daily, Zoloft daily, methocarbamol 3 times daily, collagenase daily, aspirin 81 mg daily, atorvastatin 40 mg bedtime, phenytoin ER 300 mg p.o. bedtime, Keppra 1500 mg p.o. twice daily, clopidogrel 75 mg p.o. daily. Gabapentin 200 mg p.o. 3 times daily, hydrocodone 10 as needed pain. Further history includes hypertension, CHF, diastolic dysfunction, COPD, CAD, peripheral vascular disease, history of osteomyelitis, history of drug use, alcohol abuse, tobacco use, GERD, seizures, current everyday smoker. Historical: - Allergies: 01/06 21:21 NKDA; jb4 - Home Meds: 21:21 aspirin 81 mg Oral tablet daily [Active]; buspirone 7.5 mg Oral capsule 1 cap daily jb4 [Active]; carvedilol 6.25 mg Oral tablet 1 tab daily [Active]; clopidogrel 75 mg Oral tablet 1 tab daily [Active]; escitalopram oxalate 20 mg Oral tablet 1 tab daily [Active]; folic acid 0.8 mg Oral capsule 1 cap daily [Active]; gabapentin 100 mg Oral capsule 2 caps daily [Active]; ipratropium-albuterol 0.5 mg-3 mg(2.5 mg base)/3 mL Inhl Solution for Nebulization 3 mL 4 times per day [Active]; levetiracetam 1 Oral tablet 1.5 tabs 2 times per day [Active]; lidocaine cream 5% [Active]; lisinopril 10 mg Oral tablet 1 tab daily [Active]; lorazepam 2 mg/mL injection Syringe 0.5 mL inject IM as needed for seizures [Active]; lovastatin 20 mg Oral tablet 1 tab every evening [Active]; metformin 500 mg Oral tablet 1 tab 2 times per day [Active]; multivitamin Oral tablet [Active]; Narcan 4 mg/actuation intranasal spray 1 spray every 2 to 3 minutes for opioid overdose [Active]; oxycodone 5 mg Oral capsule 1 caps q6 hrs PRN for pain [Active]; phenytoin 100 mg Oral tablet 4 tabs daily [Active]; sertraline 100 mg Oral tablet 1 tab daily [Active]; Tessalon Perles Oral 100 mg every 8 hours for Cough and Congestion [Active]; thiamine HCl (vitamin B1) 100 mg Oral tablet 1 tab daily [Active]; tramadol 50 mg Oral tablet 1 tab q 6hrs PRN as needed for breathrough pain [Active]; Ventolin 108mcg/act Nebulizer 1 puff 1 puff q8 hrs PRN SOB [Active]; - PMHx: 21:21 Chronic obstructive lung disease; Hypertension; vascular disease (Right toes amputati); jb4 Seizures; Myocardial infarction; - PSHx: 21:21 Left Leg Amputation (below the knee); cardiac stents; Right toes amputation; jb4 - Social history:: The patient is unemployed. - Family history:: not pertinent. ROS: 01/07 01:32 Constitutional: Negative for fever, chills, and weight loss, positive for right lower sp4 extremity pain and chronic right foot ulcerations All other systems are negative, Exam: 01:32 Constitutional: Patient arrives with EMS with very poor hygiene , essentially covered sp4 in fecal matter. Clothing saturated in fecal matter and urine. Left below-knee amputation with well-healed stump, right lower extremity foot status post transmetatarsal amputation. Significant skin ulcerations. And also bandage which is saturated in fecal matter. Signs of moderate physical debility. Head/Face: Normocephalic, atraumatic. Eyes: Pupils equal round and reactive to light, extra-ocular motions intact. Lids and lashes normal. Conjunctiva and sclera are not injected. Cornea within normal limits. Periorbital areas with no swelling, redness, or edema. ENT: Nares patent. No nasal discharge, no septal abnormalities noted. Tympanic membranes are normal and external auditory canals are clear. Oropharynx with no redness, swelling, or masses, exudates, or evidence of obstruction, uvula midline. Mucous membranes moist. Neck: Trachea midline, no thyromegaly or masses palpated, and no cervical lymphadenopathy. Supple, full range of motion without nuchal rigidity, or vertebral point tenderness. Chest/axilla: Normal chest wall appearance and motion. Nontender with no deformity. No lesions are appreciated. Cardiovascular: Regular rate and rhythm with a normal S1 and S2. No gallops, murmurs, or rubs. No pulse deficits. Respiratory: Lungs have equal breath sounds bilaterally, clear to auscultation and percussion. No rales, rhonchi or wheezes noted. No increased work of breathing, no retractions or nasal flaring. Abdomen/GI: Soft, with normal bowel sounds. No distension or tympany. No guarding or rebound. No evidence of tenderness throughout. Back: No spinal tenderness. No costovertebral tenderness. Male : Normal genitalia with no discharge or lesions. There is scrotal redness secondary to irritation from poor hygiene. No signs of scrotal cellulitis or abscess. Skin: Warm, dry with normal turgor. Normal color very poor hygiene and irritation secondary to unclean environment MS/ Extremity: Pulses equal, no cyanosis. Neurovascular intact. Left lower extremity below-knee amputation with well-healed stump, right lower extremity transmetatarsal amputation with multiple skin ulcers. Neuro: Awake and alert, GCS 15, oriented to person, place, time, and situation. Cranial nerves II-XII grossly intact. No changes from baseline exam Psych: Awake, alert, with orientation to person, place and time. Behavior, mood, and affect are within normal limits 01:32 ECG was reviewed by the Attending Physician. EKG at 2203 sinus tachycardia rate 119, otherwise unremarkable Vital Signs: 01/06 21:32 BP 129 / 71; Pulse 126; Resp 24; Temp 99.2(O); Pulse Ox 100% on R/A; Weight 104.33 kg jb4 (R); Height 6 ft. 1 in. (R); 23:15 BP 92 / 64; Pulse 134; Resp 24; Pulse Ox 100% on R/A; jb4 01/07 00:31 BP 96 / 58; Pulse 94; Resp 20; Pulse Ox 100% on R/A; jb4 01:40 BP 121 / 65; Pulse 94; Resp 20; Pulse Ox 100% on R/A; jb4 01/06 21:32 Body Mass Index 30.34 (104.33 kg, 185.42 cm) jb4 Patricia Coma Score: 01:32 Eye Response: spontaneous(4). Motor Response: obeys commands(6). Verbal Response: sp4 oriented(5). Total: 15. MDM: 01/06 23:06 Medical Screening Exam initiated sp4 23:20 ED course: CLINICAL INDICATION: Male, 59 years old. [facility] cellulitis Bed Name: 28 sp4 TECHNIQUE: 3 view radiographs of the right foot were obtained. COMPARISON: No prior exam. FINDINGS: Stable osseous irregularity and early erosion at the fourth and fifth metatarsal stumps. Diffuse osteopenia limits evaluation. Lateral soft tissue defect at the midfoot amputation stump again seen. IMPRESSION: Stable findings as above, concerning for ongoing osteomyelitis at the fourth and fifth metatarsal stumps. . ED course: CLINICAL INDICATION: Male, 59 years old. leg pain TECHNIQUE: 2 view radiograph of the right tibia and fibula were obtained. COMPARISON: No prior exam. FINDINGS: No evidence of fracture or dislocation. Sequelae of midfoot amputation, with overlying soft tissue irregularity. Moderate calcaneal spur. Normal alignment. Diffuse osteopenia limits evaluation. Moderate degenerative changes of the knee. Vascular calcifications. IMPRESSION: Sequelae of midfoot amputation with overlying soft tissue irregularity. Moderate degenerative changes of the knee. . ED course: EXAMINATION: ONE VIEW CHEST XR CLINICAL INDICATION: Male, 59 years old.,sepsis TECHNIQUE: Frontal chest projection is submitted. Examination is limited by patient positioning and technique. COMPARISON: 12/30/2024 FINDINGS: The lungs are well inflated. Developing medial right basal airspace opacity. No pneumothorax or sizable effusion. The heart is normal in size. Mediastinal contours are unremarkable. IMPRESSION: Developing medial right basal airspace opacity, could reflect atelectasis or developing pneumonia. . 01/07 01:27 ED course: Sepsis reevaluation completed, patient was given full 30 mL per kg septic sp4 fluid bolus.. 01:36 Differential diagnosis: closed fracture, contusion, abrasion, tendonitis, Cellulitis, sp4 osteomyelitis. Data reviewed: vital signs, nurses notes, EMS record, old medical records, lab test result(s), EKG, radiologic studies, plain films. Consideration of Admission/Observation Escalation of care including admission/observation considered. Management of patient was discussed with the following: Hospitalist: Jeffery POSADAS . [employer] Grade Teacher: Rosanne POSADAS General Surgery . 01/06 21:26 Order name: BNP; Complete Time: 22:48 sp4 01/06 21:26 Order name: Blood Culture Adult (2) sp4 01/06 21:26 Order name: CBC with Diff sp4 01/06 21:26 Order name: CMP; Complete Time: 22:48 sp4 01/06 21:26 Order name: Lactate w/ 2H reflex if indic.; Complete Time: 22:48 sp4 01/06 21:26 Order name: Protime (+inr); Complete Time: 22:48 sp4 01/06 21:26 Order name: Ptt, Activated; Complete Time: 22:48 sp4 01/06 21:26 Order name: Troponin HS; Complete Time: 22:48 sp4 01/06 22:31 Order name: Manual Differential EDMS 01/06 22:37 Order name: Ghost Lactate-NO COLLECT Timer EDMS 01/06 23:53 Order name: CBC with Automated Diff EDMS 01/06 23:53 Order name: CBC with Automated Diff EDMS 01/06 23:53 Order name: Comprehensive Metabolic Panel EDMS 01/06 23:53 Order name: Comprehensive Metabolic Panel EDMS 01/06 21:25 Order name: Foot Right 3 View XRAY; Complete Time: 22:48 sp4 01/06 21:25 Order name: Tib Fib Right XRAY; Complete Time: 22:48 sp4 01/06 21:26 Order name: Chest Single View XRAY; Complete Time: 22:48 sp4 01/06 23:53 Order name: CONS Physician Consult EDTN 01/06 21:26 Order name: Cardiac monitoring; Complete Time: 22:09 sp4 01/06 21:26 Order name: EKG - Nurse/Tech; Complete Time: 22:09 sp4 01/06 21:26 Order name: IV Saline Lock - Large Bore; Complete Time: 22:09 sp4 01/06 21:26 Order name: Labs collected and sent; Complete Time: 21:37 sp4 01/06 21:26 Order name: O2 Per Protocol; Complete Time: 21:37 sp4 01/06 21:26 Order name: O2 Sat Monitoring; Complete Time: 21:37 sp4 01/06 21:26 Order name: Vital Signs; Complete Time: 21:37 sp4 EC/12 22:03 Rate is 119 beats/min. Rhythm is regular, Sinus tachycardia. QRS [place] is Normal. AL sp4 interval is normal. QRS interval is normal. QT interval is normal. No Q waves. T waves are Normal. No ST changes noted. Clinical impression: No evidence of ischemia. Interpreted by me. Administered Medications: 23:08 Drug: Acetaminophen PO 1000 mg PO once Route: PO; 23:08 Drug: morphine IVP or IV 4 mg IVP once over 4 mins Route: IVP; Infused Over: 4 mins; 4 Site: left antecubital; 01/07 00:00 Follow up: Response: No adverse reaction; Marked relief of symptoms; Pain is decreased; [facility] RASS: Alert and Calm (0) 01/06 23:08 Drug: Ketorolac IVP 30 mg IVP once Route: IVP; Site: left antecubital; 4 01/07 00:00 Follow up: Response: No adverse reaction; Marked relief of symptoms; Pain is decreased [facility] 01/06 23:08 Drug: Ondansetron IVP 4 mg IVP once; over 2 minutes Route: IVP; Site: left antecubital; 4 01/07 00:00 Follow up: Response: No adverse reaction [facility] 01/06 23:08 Drug: vancoMYCIN IVPB 2 grams IVPB at calculated rate once Route: IVPB; Rate: jb4 calculated rate; Site: left antecubital; 01/07 01:08 Follow up: Response: No adverse reaction; IV Status: Completed infusion; IV Intake: jb4 500ml 01/06 23:08 Drug: Droperidol IVP 2.5 mg IVP once Route: IVP; Site: left antecubital; [facility] 01/07 00:00 Follow up: Response: No adverse reaction; Marked relief of symptoms; Pain is decreased [facility] 01/06 23:08 Drug: NS 0.9% IV 2000 ml IV at 1 bolus Per protocol; to be given as a bolus over 60 jb4 minutes Route: IV; Rate: 1 bolus; Site: left antecubital; 23:08 Drug: NS 0.9% IV 1000 ml IV at 125 ml/hr Per protocol Route: IV; Rate: 125 ml/hr; Site: [facility] left antecubital; 01/07 01:41 Follow up: Response: No adverse reaction; IV Status: Infusion continued upon admission [facility] 01/06 23:18 Drug: NS 0.9% IV 2000 ml IV at 1 bolus Per protocol; to be given as a bolus over 60 jb4 minutes Route: IV; Rate: 1 bolus; Site: left hand; 01/07 00:20 Follow up: Response: No adverse reaction; IV Status: Completed infusion; IV Intake: jb4 2000ml 01/06 23:20 Drug: Cefepime IVPB 2 grams IVPB at 200 ml/hr once over 30 mins; (mix in NS 100 mL) [facility] Route: IVPB; Rate: 200 ml/hr; Infused Over: 30 mins; Site: left hand; 23:50 Follow up: Response: No adverse reaction; IV Status: Completed infusion; IV Intake: jb4 100ml 23:30 Not Given (Other Intervention Used): ns 0.9% (30 ml/kg) 30 ml/kg IV at bolus once; [facility] Sepsis Protocol; to be given as a bolus over 90 minutes Disposition Summary: 01/06/25 23:31 Hospitalization Ordered Notes: Hospitalization Status: Inpatient Admission sp4 [facility]: [facility] sp4 Condition: Stable sp4 Problem: new sp4 Symptoms: have improved sp4 Bed/Room Type: Standard sp4 Room Assignment: 232(01/07/25 00:08) cg Diagnosis - Other pneumonia, unspecified organism sp4 - Acute right lower lung pneumonia, subacute right foot osteomyelitis, acute renal sp4 failure, moderate dehydration, sepsis without septic shock, - Severe sepsis without septic shock sp4 Forms: - Medication Reconciliation Form sp4 - SBAR form sp4 - Leadership Thank You Letter sp4 Critical care time excluding procedures: 01/07 01:39 Critical care time: Bedside Care: 36 minutes, Consultation: 12 minutes, Family sp4 Intervention: 12 minutes. Total time: 60 minutes Signatures: Dispatcher [employer] Minerva Ram, RN RN Jason Cross RN RN jb4 Neto Cornelius MD MD sp4 Corrections: (The following items were deleted from the chart) 01/06 21:26 21:26 Tib Fib Right+RAD.RAD.BRZ ordered. EDMS EDMS 21:26 21:26 PROBNP+C.LAB.BRZ ordered. EDMS EDMS 21:26 21:26 BLOOD CULTURE*+BA.LAB.BRZ ordered. EDMS EDMS 21:26 21:26 CBC+H.LAB.BRZ ordered. EDMS EDMS 21:26 21:26 COMPREHENSIVE METABOLIC PANEL+C.LAB.BRZ ordered. EDMS EDMS 21:26 21:26 LACTATE+C.LAB.BRZ ordered. EDMS EDMS 21:26 21:26 PROTIME (+INR)+COAG.LAB.BRZ ordered. EDMS EDMS 21:26 21:26 PTT, ACTIVATED+COAG.LAB.BRZ ordered. EDMS EDMS 21:26 21:26 Troponin High Sensitivity+C.LAB.BRZ ordered. EDMS EDMS 21:26 21:26 Chest Single View+RAD.RAD.BRZ ordered. EDMS EDMS 23:31 21:26 Accucheck ordered. sp4 jb4 01/07 00:08 01/06 23:31 sp4 cg
--- NOTE | 2025-01-06 23:31 | ER ---
Nurse's Notes [facility] Name: Karlos Leblanc Age: 59 yrs Sex: Male : 1965 Arrival Date: 01/06/2025 Time: 21:18 Bed 28 Private MD: Diagnosis: Other pneumonia, unspecified organism;Acute right lower lung pneumonia, subacute right foot osteomyelitis, acute renal failure, moderate dehydration, sepsis without septic shock, ;Severe sepsis without septic shock Presentation: 01/06 21:32 Chief complaint: EMS states: :Pt reports right foot pain. Coronavirus screen: At this jb4 time, the client does not indicate any symptoms associated with coronavirus-19. Ebola Screen: No symptoms or risks identified at this time. Initial Sepsis Screen: Does the patient meet any 2 criteria? RR > 20 per min. HR > 90 bpm. Yes Does the patient have a suspected source of infection? No. Patient's initial sepsis screen is negative. Risk Assessment: Do you want to hurt yourself or someone else? Patient reports no desire to harm self or others. Onset of symptoms was January 06, 2025. Transition of care: patient was not received from another setting of care. 21:32 Method Of Arrival: EMS: [facility] jb4 21:32 Acuity: KENIA 2 jb4 Historical: - Allergies: 21:21 NKDA; jb4 - Home Meds: 21:21 aspirin 81 mg Oral tablet daily [Active]; buspirone 7.5 mg Oral capsule 1 cap daily jb4 [Active]; carvedilol 6.25 mg Oral tablet 1 tab daily [Active]; clopidogrel 75 mg Oral tablet 1 tab daily [Active]; escitalopram oxalate 20 mg Oral tablet 1 tab daily [Active]; folic acid 0.8 mg Oral capsule 1 cap daily [Active]; gabapentin 100 mg Oral capsule 2 caps daily [Active]; ipratropium-albuterol 0.5 mg-3 mg(2.5 mg base)/3 mL Inhl Solution for Nebulization 3 mL 4 times per day [Active]; levetiracetam 1 Oral tablet 1.5 tabs 2 times per day [Active]; lidocaine cream 5% [Active]; lisinopril 10 mg Oral tablet 1 tab daily [Active]; lorazepam 2 mg/mL injection Syringe 0.5 mL inject IM as needed for seizures [Active]; lovastatin 20 mg Oral tablet 1 tab every evening [Active]; metformin 500 mg Oral tablet 1 tab 2 times per day [Active]; multivitamin Oral tablet [Active]; Narcan 4 mg/actuation intranasal spray 1 spray every 2 to 3 minutes for opioid overdose [Active]; oxycodone 5 mg Oral capsule 1 caps q6 hrs PRN for pain [Active]; phenytoin 100 mg Oral tablet 4 tabs daily [Active]; sertraline 100 mg Oral tablet 1 tab daily [Active]; Tessalon Perles Oral 100 mg every 8 hours for Cough and Congestion [Active]; thiamine HCl (vitamin B1) 100 mg Oral tablet 1 tab daily [Active]; tramadol 50 mg Oral tablet 1 tab q 6hrs PRN as needed for breathrough pain [Active]; Ventolin 108mcg/act Nebulizer 1 puff 1 puff q8 hrs PRN SOB [Active]; - PMHx: 21:21 Chronic obstructive lung disease; Hypertension; vascular disease (Right toes amputati); jb4 Seizures; Myocardial infarction; - PSHx: 21:21 Left Leg Amputation (below the knee); cardiac stents; Right toes amputation; jb4 - Social history:: The patient is unemployed. - Family history:: not pertinent. Screenin:35 [facility] ED Fall Risk Assessment (Adult) History of falling in the last 3 months, jb4 including since admission No falls in past 3 months (0 pts) Confusion or Disorientation No (0 pts) Intoxicated or Sedated No (0 pts) Impaired Gait Yes (1 pt) Mobility Assist Device Used Yes (1 pt) Altered Elimination Yes (1 pt) Score/Fall Risk Level 3 or more points = High Risk Oriented to surroundings, Maintained a safe environment. Abuse screen: Denies threats or abuse. Nutritional screening: No deficits noted. Tuberculosis screening: No symptoms or risk factors identified. Assessment: 21:35 General: Appears in no apparent distress. comfortable, Behavior is calm, cooperative, jb4 appropriate for age. Pain: Complains of pain in dorsum of right foot Pain does not radiate. Pain currently is 10 out of 10 on a pain scale. Neuro: Level of Consciousness is awake, alert, obeys commands, Oriented to person, place, time, situation. Cardiovascular: Patient's skin is warm and dry. Respiratory: Airway is patent Respiratory effort is even, unlabored, Respiratory pattern is regular, symmetrical. Derm: Skin is pink, warm \T\ dry. Wound noted lateral aspect of right calf, right calf, medial aspect of right calf and right avalos. Musculoskeletal: Circulation, motion, and sensation intact. Range of motion: intact in all extremities. 23:00 Reassessment: Patient appears in no apparent distress at this time. Patient and/or jb4 family updated on plan of care and expected duration. Pain level reassessed. Patient is alert, oriented x 3, equal unlabored respirations, skin warm/dry/pink. 01/07 00:00 Reassessment: Patient appears in no apparent distress at this time. Patient and/or jb4 family updated on plan of care and expected duration. Pain level reassessed. Patient is alert, oriented x 3, equal unlabored respirations, skin warm/dry/pink. 01:00 Reassessment: Patient appears in no apparent distress at this time. Patient and/or jb4 family updated on plan of care and expected duration. Pain level reassessed. Patient is alert, oriented x 3, equal unlabored respirations, skin warm/dry/pink. 01:40 Reassessment: Patient appears in no apparent distress at this time. Patient and/or jb4 family updated on plan of care and expected duration. Pain level reassessed. Patient is alert, oriented x 3, equal unlabored respirations, skin warm/dry/pink. Vital Signs: 01/06 21:32 BP 129 / 71; Pulse 126; Resp 24; Temp 99.2(O); Pulse Ox 100% on R/A; Weight 104.33 kg 4 (R); Height 6 ft. 1 in. (R); 23:15 BP 92 / 64; Pulse 134; Resp 24; Pulse Ox 100% on R/A; 4 01/07 00:31 BP 96 / 58; Pulse 94; Resp 20; Pulse Ox 100% on R/A; [facility] 01:40 BP 121 / 65; Pulse 94; Resp 20; Pulse Ox 100% on R/A; 4 01/06 21:32 Body Mass Index 30.34 (104.33 kg, 185.42 cm) 4 Patricia Coma Score: 01:32 Eye Response: spontaneous(4). Motor Response: obeys commands(6). Verbal Response: sp4 oriented(5). Total: 15. ED Course: 01/05 21:55 Inserted saline lock: 18 gauge in left antecubital area, using aseptic technique. Blood jb4 collected. 01/06 21:21 Patient arrived in ED. jb4 21:21 Arm band placed on right wrist. jb4 21:24 Neto Cornelius MD is Attending Physician. sp4 21:35 Triage completed. jb4 21:35 Patient has correct armband on for positive identification. Bed in low position. Call jb4 light in reach. Side rails up X 1. Provided Education on: plan of care. 22:09 BNP Sent. jb4 22:09 Blood Culture Adult (2) Sent. jb4 22:09 CBC with Diff Sent. jb4 22:09 CMP Sent. jb4 22:09 Protime (+inr) Sent. jb4 22:09 Lactate w/ 2H reflex if indic. Sent. jb4 22:09 Ptt, Activated Sent. jb4 22:09 Troponin HS Sent. jb4 22:20 Foot Right 3 View XRAY In Process Unspecified. EDMS 22:20 Tib Fib Right XRAY In Process Unspecified. EDMS 22:20 Chest Single View XRAY In Process Unspecified. EDMS 22:38 Jason Cabrera, RN is Primary Nurse. jb4 23:10 Inserted saline lock: 22 gauge in left hand, using aseptic technique. jb4 23:25 Noah Gil MD is Hospitalizing Provider. sp4 01/07 00:30 No provider procedures requiring assistance completed. Patient admitted, IV remains in jb4 place. Administered Medications: 01/06 23:08 Drug: Acetaminophen PO 1000 mg PO once Route: PO; jb4 23:08 Drug: morphine IVP or IV 4 mg IVP once over 4 mins Route: IVP; Infused Over: 4 mins; jb4 Site: left antecubital; 01/07 00:00 Follow up: Response: No adverse reaction; Marked relief of symptoms; Pain is decreased; jb4 RASS: Alert and Calm (0) 01/06 23:08 Drug: Ketorolac IVP 30 mg IVP once Route: IVP; Site: left antecubital; jb4 01/07 00:00 Follow up: Response: No adverse reaction; Marked relief of symptoms; Pain is decreased jb4 01/06 23:08 Drug: Ondansetron IVP 4 mg IVP once; over 2 minutes Route: IVP; Site: left antecubital; [facility] 01/07 00:00 Follow up: Response: No adverse reaction [facility] 01/06 23:08 Drug: vancoMYCIN IVPB 2 grams IVPB at calculated rate once Route: IVPB; Rate: jb4 calculated rate; Site: left antecubital; 01/07 01:08 Follow up: Response: No adverse reaction; IV Status: Completed infusion; IV Intake: jb4 500ml 01/06 23:08 Drug: Droperidol IVP 2.5 mg IVP once Route: IVP; Site: left antecubital; [facility] 01/07 00:00 Follow up: Response: No adverse reaction; Marked relief of symptoms; Pain is decreased [facility] 01/06 23:08 Drug: NS 0.9% IV 2000 ml IV at 1 bolus Per protocol; to be given as a bolus over 60 jb4 minutes Route: IV; Rate: 1 bolus; Site: left antecubital; 23:08 Drug: NS 0.9% IV 1000 ml IV at 125 ml/hr Per protocol Route: IV; Rate: 125 ml/hr; [facility]; 01/07 01:41 Follow up: Response: No adverse reaction; IV Status: Infusion continued upon admission [facility] 01/06 23:18 Drug: NS 0.9% IV 2000 ml IV at 1 bolus Per protocol; to be given as a bolus over 60 jb4 minutes Route: IV; Rate: 1 bolus; Site: left hand; 01/07 00:20 Follow up: Response: No adverse reaction; IV Status: Completed infusion; IV Intake: jb4 2000ml 01/06 23:20 Drug: Cefepime IVPB 2 grams IVPB at 200 ml/hr once over 30 mins; (mix in NS 100 mL) [facility] Route: IVPB; Rate: 200 ml/hr; Infused Over: 30 mins; Site: left hand; 23:50 Follow up: Response: No adverse reaction; IV Status: Completed infusion; IV Intake: jb4 100ml 23:30 Not Given (Other Intervention Used): ns 0.9% (30 ml/kg) 30 ml/kg IV at bolus once; [facility] Sepsis Protocol; to be given as a bolus over 90 minutes Medication: 21:35 VIS not applicable for this client. jb4 Intake: 23:50 IV: 100ml; Total: 100ml. jb4 01/07 00:20 IV: 2000ml; Total: 2100ml. jb4 01:08 IV: 500ml; Total: 2600ml. jb4 Outcome: 01/06 23:31 Decision to Hospitalize by Provider. sp4 01/07 00:30 Admitted to Med/surg accompanied by tech, via stretcher, room 232, with chart, jb4 Condition: stable Discharge instructions given to patient, Instructed on the need for admit, Demonstrated understanding of instructions, 01:48 Patient left the ED. jb4 Signatures: Dispatcher [employer] Jason Rios RN RN jb4 Neto Cornelius MD MD sp4
[2025-01-06 23:34] LABS: Differential Total Cells Count 100; Segmented Neutrophils 56 % (40-80)
[2025-01-06 23:35] LABS: Blood Morphology Comment NOT SEEN (NOT SEEN)
[2025-01-06] MEDS ORDERED: ONDANSETRON 4 MG/2 ML VIAL IV PRN (23:49)
--- NOTE | 2025-01-06 23:50 | P.HP ---
Certification for Inpatient Patient admitted to: Inpatient With expected LOS: >2 Midnights Practitioner: I am a practitioner with admitting privileges, knowledge of patient current condition, hospital course, and medical plan of care. Services: Services provided to patient in accordance with Admission requirements found in Title 42 Section 412.3 of the Code of Federal Regulations Patient History Date of Service: 01/07/25 Reason for admission: Right leg pain History of Present Illness: 59-year-old male with past medical history of type 2 diabetes mellitus, hypertension, alcohol use disorder, depression, seizure disorder, CVA, bilateral lower extremities PVD, wound right foot with recent toes amputation brought to ER with persistent pain in the right lower extremity. Patient is a poor historian hence most of the history is obtained from the chart review and also document the ER physician. Apparently patient's neighbors called EMS secondary to the fact that patient resides in unsanitary conditions. He also has worsening pain in the right lower extremity. He has a recent transmetatarsal amputation of right lower extremity. He has left lower extremity below-knee amputation as well. Patient was assessed in the ER and was admitted for further management of right lower extremity cellulitis. Allergies No Known Allergies Allergy (Verified 11/17/23 03:52) Home medications list reviewed: Yes Home Medications: Escitalopram Oxalate 20 mg PO DAILY #30 tab 01/21/24 Aspirin [Aspirin EC 81 MG] 81 mg PO DAILY 04/16/24 levETIRAcetam [Keppra*] 1,000 mg PO BID 04/16/24 Clopidogrel Bisulfate [Plavix] 75 mg PO DAILY #30 tab 08/26/24 Buspirone HCl 1 tab PO BID 12/30/24 Folic Acid 1 cap PO DAILY 12/30/24 Gabapentin [Neurontin*] 100 mg PO TID 12/30/24 Ipratropium/Albuterol Sulfate [Iprat-Albut 0.5-3(2.5) mg/3 ml] 1 amp IH Q4HR PRN 12/30/24 Lidocaine 5% [Lidocaine HCl] 1 shabana TOP M,W,F 12/30/24 Lisinopril [Zestril] 1 tab PO DAILY 12/30/24 carvediloL [Carvedilol] 6.25 mg PO DAILY 12/30/24 traMADol HCL [Ultram*] 1 tab PO Q6HR PRN 12/30/24 Collagenase [Santyl Ointment*] 1 appl TOP DAILY #1 tube 01/01/25 Thiamine HCl [Vitamin B-1*] 100 mg PO BID #60 tablet 01/01/25 Zinc Oxide [Zinc Oxide 20%*] 1 appl TOP Q6HP PRN #1 tube 01/01/25 chlordiazePOXIDE HCl [Chlordiazepoxide HCl] 10 mg PO TID #40 cap 01/01/25 - Past Medical/Surgical History Diabetic: No Past Medical History: Reviewed- Non-Contributory -: HTN -: CHF, diastolic dysfunction -: COPD -: CAD -: PVD -: Left & right partial foot amputation -: History of osteomyelitis -: History of drug use -: Alcohol abuse -: Tobacco abuse -: GERD -: seizures Past Surgical History: Reviewed- Non-Contributory -: Rt great toe & 2nd toe amputated-Dec 2015 -: Left partial foot amputation-January 2019 -: right partial foot amputation Psychosocial/ Personal History: Was previously staying at home in [place], reportedly recently evicted - Family History Father -: Cancer Mother -: Cancer - Social History Smoking Status: Former smoker Alcohol use: Yes CD- Drugs: No Caffeine use: Yes Review of Systems is unable to be obtained Physical Examination - Vital Signs Temperature: 99.2 F Blood Pressure: 129/71 Pulse: 126 Respirations: 18 Pulse Ox (%): 98 - Physical Exam General: Alert, Moderate distress HEENT: Atraumatic, Normocephalic Neck: Supple Respiratory: Clear to auscultation bilaterally, Normal air movement Cardiovascular: Regular rate/rhythm, Normal S1 S2 Gastrointestinal: Soft and benign, W/out hepatosplenomegaly Musculoskeletal: No clubbing, Tenderness Integumentary: No rashes, No breakdown Neurological: Other (Alert awake nonfocal) Lymphatics: No axilla or inguinal lymphadenopathy - Studies Laboratory Data (last 24 hrs) 01/06/25 01/06/25 01/06/25 21:55 21:55 21:55 WBC 16.00 H Hgb 12.7 L Hct 36.4 L Plt Count 187 PT 13.0 INR 1.16 APTT 41.5 H Sodium 130 L Potassium 3.5 BUN 56 H Creatinine 2.55 H Glucose 134 H Total Bilirubin 0.5 AST 44 H ALT 30 Alkaline Phosphatase 75 Assessment and Plan - Plan Right lower extremity cellulitis History of transmetatarsal amputation Lactic acidosis Acute kidney injury Hyponatremia Leukocytosis Right foot cellulitis with possible osteomyelitis Status post TMA amputation Start on IV antibiotic Pain control Monitor closely on telemetry Will obtain cultures Surgical consult Hypertension Antihypertensives titrated Continue home medications and titrate as needed Hyperlipidemia Continue statin Acute kidney injury on CKD stage II Monitor renal parameters Electrolytes monitor and replace accordingly Diabetes Insulin sliding scale Accu-Chek before every meal and at bedtime PAD Tobacco use disorder Continue home medications, counseled on need for tobacco cessation GI/DVT prophylaxis Advanced directive full code - Advance Directives Does patient have a Living Will: No Does patient have a Durable POA for Healthcare: No
[2025-01-07] MEDS: NA CHLORIDE 0.9% 1,000 ML IV SCH (03:00)
[2025-01-07] MEDS ORDERED: VANCOMYCIN 2 GM in NA CHLORIDE 0.9% 500 ML IVPB SCH (03:00)
[2025-01-07] MEDS ORDERED: VANCOMYCIN 1 GM in NA CHLORIDE 0.9% 250 ML IVPB SCH (03:00)
[2025-01-07] MEDS: MORPHINE 2 MG/ML SYR IV PRN (03:01)
[2025-01-07 06:06] LABS: Absolute Lymphocytes (CBC) 0.8 K/uL (0.7-4.9); Hematocrit 27.9 % (39.6-49.0); Hemoglobin 9.8 g/dL (13.6-17.9); MCH 31.9 pg (27.0-35.0); MCHC 35.1 g/dL (32.0-36.0); MCV 91.0 fL (80-100); MPV 8.2 fL (7.6-11.3); Nucleated RBC Absolute Count 0.0 (0-0); Nucleated Red Blood Cells % 0.0 % (0-0); RBC Red Blood Cell Count 3.06 M/uL (4.33-5.43); White Blood Count 10.90 thou/uL (4.3-10.9)
[2025-01-07 06:40] LABS: ALT/SGPT 21.0 U/L (16-61); AST/SGOT 34.0 U/L (15-37); Albumin 1.9 g/dL (3.4-5.0); Albumin/Globulin Ratio 0.4 (1.1-1.8); Alkaline Phosphatase 51.0 U/L (45-117); Anion Gap 13.3 mEq/L (5.0-15.0); BUN Blood Urea Nitrogen 61.0 mg/dL (7-18); Globulin 4.3 g/dL (2.3-3.5); Glucose Level 164.0 mg/dL (74-106); Potassium 3.3 mEq/L (3.5-5.1)
[2025-01-07] MEDS: POTASSIUM CL SA 10 MEQ TAB PO ONE (07:31)
[2025-01-07] MEDS: CEFEPIME 1 GM in NA CHLORIDE 0.9% 100 ML IV SCH (07:31)
[2025-01-07 10:27] LABS: Blood Morphology Comment NOT SEEN (NOT SEEN); Differential Total Cells Count 100; Segmented Neutrophils 79 % (40-80)
--- NOTE | 2025-01-07 14:54 | P.PN ---
Date of Service: 01/07/25 Subjective: Resting over the side of his bed. Discussed possible surgery in the a.m. Endorses pain Review of system 10 point review of systems otherwise - Physical Exam General: Alert, Moderate distress HEENT: Atraumatic, Normocephalic Neck: Supple Respiratory: Clear to auscultation bilaterally, Normal air movement Cardiovascular: Regular rate/rhythm, Normal S1 S2 Gastrointestinal: Soft and benign, W/out hepatosplenomegaly Musculoskeletal: No clubbing, Tenderness Integumentary: No rashes, No breakdown Neurological: Other (Alert awake nonfocal) Lymphatics: No axilla or inguinal lymphadenopathy - Studies Laboratory Data (last 24 hrs) 01/06/25 01/06/25 01/06/25 21:55 21:55 21:55 WBC 16.00 H Hgb 12.7 L Hct 36.4 L Plt Count 187 PT 13.0 INR 1.16 APTT 41.5 H Sodium 130 L Potassium 3.5 BUN 56 H Creatinine 2.55 H Glucose 134 H Total Bilirubin 0.5 AST 44 H ALT 30 Alkaline Phosphatase 75 Assessment and Plan - Plan Right lower extremity cellulitis History of transmetatarsal amputation Lactic acidosis Acute kidney injury Hyponatremia Leukocytosis Right foot cellulitis with possible osteomyelitis n.p.o. at midnight for surgery in the a.m. Continue cefepime and vancomycin, defer antibiotics to infectious disease Was previously on ertapenem and completed a 6 weeks course in August Pain control Monitor closely on telemetry Will obtain cultures Surgical consult, Dr. Lay, Hypertension Antihypertensives titrated Continue home medications and titrate as needed Hyperlipidemia Continue statin Acute kidney injury on CKD stage II Monitor renal parameters Electrolytes monitor and replace accordingly Diabetes Insulin sliding scale Accu-Chek before every meal and at bedtime PAD Tobacco use disorder Continue home medications, counseled on need for tobacco cessation GI/DVT prophylaxis Advanced directive full code - Advance Directives Does patient have a Living Will: No Does patient have a Durable POA for Healthcare: No
[2025-01-07] MEDS: ACETAMINOPHEN 325 MG TABLET PO PRN (18:38)
[2025-01-08] MEDS ORDERED: VANCOMYCIN 2 GM in NA CHLORIDE 0.9% 500 ML IVPB SCH ×2 (09:00→21:00)
[2025-01-08 09:32] LABS: Absolute Lymphocytes (CBC) 0.5 K/uL (0.7-4.9); Hematocrit 27.1 % (39.6-49.0); Hemoglobin 9.3 g/dL (13.6-17.9); MCH 31.4 pg (27.0-35.0); MCHC 34.3 g/dL (32.0-36.0); MCV 91.5 fL (80-100); MPV 7.8 fL (7.6-11.3); Nucleated RBC Absolute Count 0.0 (0-0); Nucleated Red Blood Cells % 0.1 % (0-0); RBC Red Blood Cell Count 2.97 M/uL (4.33-5.43); White Blood Count 9.20 thou/uL (4.3-10.9)
[2025-01-08 09:55] LABS: Anion Gap 11.5 mEq/L (5.0-15.0); BUN Blood Urea Nitrogen 46.0 mg/dL (7-18); Glucose Level 93.0 mg/dL (74-106); Potassium 3.5 mEq/L (3.5-5.1)
--- NOTE | 2025-01-08 10:29 | P.PN ---
Date of Service: 01/08/25 Subjective: Going for debridement today. Denies fevers and chills. Overall doing better Review of system 10 point review of systems otherwise - Physical Exam General: Alert, Moderate distress HEENT: Atraumatic, Normocephalic Neck: Supple Respiratory: Clear to auscultation bilaterally, Normal air movement Cardiovascular: Regular rate/rhythm, Normal S1 S2 Gastrointestinal: Soft and benign, W/out hepatosplenomegaly Musculoskeletal: No clubbing, Tenderness Integumentary: No rashes, No breakdown Neurological: Other (Alert awake nonfocal) Lymphatics: No axilla or inguinal lymphadenopathy - Studies Laboratory Data (last 24 hrs) 01/06/25 01/06/25 01/06/25 21:55 21:55 21:55 WBC 16.00 H Hgb 12.7 L Hct 36.4 L Plt Count 187 PT 13.0 INR 1.16 APTT 41.5 H Sodium 130 L Potassium 3.5 BUN 56 H Creatinine 2.55 H Glucose 134 H Total Bilirubin 0.5 AST 44 H ALT 30 Alkaline Phosphatase 75 Assessment and Plan - Plan Right lower extremity cellulitis History of transmetatarsal amputation Lactic acidosis Acute kidney injury Hyponatremia Leukocytosis Right foot cellulitis with possible osteomyelitis Dr. Lay following for debridement this morning Appreciate infectious disease recommendations Switch to Merrem due to history of ESBL from wound Continue vancomycin Was previously on ertapenem and completed a 6 weeks course in August Pain control Monitor closely on telemetry Will obtain cultures Surgical consult, Dr. Lay Hypertension Antihypertensives titrated Continue home medications and titrate as needed Hyperlipidemia Continue statin Acute kidney injury on CKD stage II Improving Monitor renal parameters Electrolytes monitor and replace accordingly Diabetes Insulin sliding scale Accu-Chek before every meal and at bedtime PAD Tobacco use disorder Continue home medications, counseled on need for tobacco cessation GI/DVT prophylaxis Advanced directive full code - Advance Directives Does patient have a Living Will: No Does patient have a Durable POA for Healthcare: No
[2025-01-08] MEDS: COLLAGENASE 30 GM OINTMENT TOP ONE (10:43)
[2025-01-08] MEDS: LIDOCAINE HCL/EPINEPHRINE 20 ML MDV ONE (10:44)
[2025-01-08] MEDS: Ringers Lactate 1,000 ML IV ONE (11:05)
[2025-01-08] MEDS ORDERED: ONDANSETRON 4 MG/2 ML VIAL ONE ×2 (11:07→12:16)
[2025-01-08] MEDS ORDERED: FENTANYL CITR 100 MCG/2 ML ONE ×3 (11:07→12:25)
[2025-01-08] MEDS ORDERED: MIDAZOLAM HCL 2 MG/2 ML INJ ONE (11:07)
[2025-01-08] MEDS ORDERED: LIDOCAINE 2% MPF 5 ML VIAL ONE ×3 (11:07→11:44)
--- NOTE | 2025-01-08 11:47 | P.CNS ---
Date of Consult: 01/07/25 Date of Consultation: 01-08-2025 Brief History Of Present Illness: The patient is a 58-year-old male known to me from previous admissions in surgical debridements who had a history of alcohol use disorder, tobacco use disorder, currently smoking half a pack to a pack per day of cigarettes, peripheral arterial disease, seizure disorder, hypertension, hyperlipidemia, coronary artery disease, previous left [id number] amputation, and a right TMA amputation performed at an outside hospital, who has had multiple debridements of his right foot chronic wounds by myself on multiple occasions. Also history of coronary artery stents, post PCI, COPD, presents to emergency room with chief complaint of foot pain, shortness of breath, which is similar to previous issues. He was at an outside facility and he states his wound care was suboptimal, at that point, which he has had issues before in the past, ultimately leading to incomplete dressing changes and decreased wound care to the area and he states he has had difficulty with compliance with the wound care instructions as well, and as such, he has recurrence of the wounds with worsening enlargement on the medial and lateral aspects of his TMA on the right residual TMA sites. He has exposed bone in these areas now, which is a significant worsening from his previous encounters and the area is red, tender, swollen, and painful. There has been no drainage, however, he is aware of. Patient also notes some 3 redness that extended up the right lower extremity and new wounds multiple located circumferentially around the leg on the right. Past Medical History: Alcohol abuse, tobacco use, peripheral arterial disease, seizure disorder, hypertension, hyperlipidemia, coronary artery disease with status post PCI, COPD, GERD, CHF with diastolic dysfunction, history of osteomyelitis, history of drug abuse. Past Surgical History: Includes a right great toe and second toe amputation in 2015, a left partial foot amputation in January 2019, a right partial foot amputation as well as multiple foot debridements. He has had a PCI coronary intervention for his coronary artery disease. Allergies: NO KNOWN DRUG ALLERGIES. Home Medications: Include buspirone, escitalopram, gabapentin, Zoloft, methocarbamol, hydrocodone, aspirin, atorvastatin, Plavix, phenytoin/Dilantin, Keppra. Social History: He was staying at home in [place], reportedly recently evicted from there. He smokes every day approximately half a pack to a pack per day depending on the day. Denies current alcohol or recreational drug use. Family History: Cancer in his father and mother. Review of Systems: Ten-point review of systems other than above, denies. Physical Examination: General: At the time of my examination, he is awake, alert, and oriented. Psychiatric: He is appropriate and conversive. HEENT. His head is normocephalic. He does have a right infraorbital skin lesion which looks similar to previous encounters. Neck: Supple without JVD. Chest: Normal to expansion and excursion. Cardiovascular: Regular rate and rhythm. Pulmonary: Clear to auscultation bilaterally. Abdomen: Soft. Extremities: Focused examination of lower extremities, he has a left BKA. His right foot has cellulitis, swelling, tenderness, exposed bone, increased slough and some superficial necrosis of the medial and lateral aspects of the TMA approximately 2.5 to 3 cm in size on both of these individually. There is swelling to the foot as described. No other areas of major concern. However, there are some dry eschar skin flaking to the remainder of the leg extending up to below the knee. Patient has new areas of redness swelling tenderness and multiple open wounds circumferentially around the leg have different size and a complex stellate type orientation. Laboratory Data: Revealed white blood cell count of 10.5, hemoglobin 11.6, hematocrit of 33.5, platelet count is 176. His PT 12.4, INR 1.09, PTT is 34.0, sodium 128, potassium 2.9, chloride 98, carbon dioxide is 19, BUN 13, creatinine 0.77, glucose was 101. Lactic acid on admission was 3.8, calcium 8.3, total bilirubin 0.2, AST 39, ALT 33, alkaline phosphatase is 86. His lipase is 69. He had imaging performed, which included an x-ray of the foot, officially read as 08/16/2024 as amputation involves almost all of each metatarsal, ulceration of all soft tissue of the lateral foot erosion involving the residual fifth metatarsal suspicious for osteomyelitis. Assessment And Plan: This is a 58-year-old male who comes in with signs and symptoms of worsening infection/osteomyelitis of his residual right TMA site and lower extremity 1. IV fluid hydration. 2. Antibiotic coverage. 3. Electrolyte correction. 4. Continue medical optimization prior to any surgical intervention. 5. I have explained the risks, benefits, and alternatives of debridement versus amputation of this area. The patient refuses any amputations and would only agree to a debridement of these areas including the TMA site and right lower extremity multiple wounds. In an attempt to save the residual amount of foot that he has. I have explained that this is going to be challenging given the obvious osteomyelitis. However, there must be some bony involvement and therefore I must remove portions of the bone that are involved with osteomyelitis and do debridement and he agrees to this at this point and said that he would like to proceed. After given the risks, benefits, and alternatives, which included, but not limited to, bleeding, infection, damage to surrounding tissues, need for further operative procedures, limb loss, and other unforeseen complications of the perioperative period including heart attack, blood clots, strokes, and other unforeseen complications related to anesthesia, non-anesthesia related issues. The patient displayed understanding of above stated plan, agrees to proceed as indicated.
[2025-01-08] MEDS ORDERED: METOCLOPRAMIDE 10 MG/2mL INJ ONE (12:16)
--- NOTE | 2025-01-08 12:35 | P.OP ---
Preoperative diagnosis: RIGHT foot and lower extremity chronic wounds Postoperative diagnosis: RIGHT foot and lower extremity chronic wounds Primary procedure: Debridement of RIGHT foot and lower extremity chronic wounds Anesthesia: GETA Estimated blood loss: <2cc Specimen: Cultures / Debridement Tissue Findings: Multiple RIGHT foot and lower extremity chronic wounds 30sq cm Complications: None Transferred to: Recovery Room Condition: Good
[2025-01-08] MEDS: HYDROMORPHONE HCL 1 MG/ML INJ ONE (12:56)
[2025-01-08] MEDS: FENTANYL CITR 100 MCG/2 ML ONE (13:15)
--- NOTE | 2025-01-08 13:16 | OP ---
Date of Procedure: 01/08/2025 Surgeon: Faizan Lay MD, Preoperative Diagnosis: Right foot and lower extremity necrotic wounds. Postoperative Diagnosis: Right foot and lower extremity necrotic wounds. Procedure Performed: Debridement of right foot and lower extremity necrotic wounds. Anesthesia: General endotracheal. Estimated Blood Loss: Less than 2 cc. Specimens: Culture sent for both aerobic and anaerobic speciation, and debridement of tissue. Findings: Multiple right foot and right lower extremity necrotic wounds similar to previous. Only n ew wounds appreciated on the lower extremity approximately 30 total square centimeters stage I wounds . Complications: None. Disposition: The patient was transferred to recovery room in good condition. Procedure In Detail: After informed consent was obtained, the patient was brought to the operating r oom, prepped and draped in the usual sterile fashion. After adequate anesthesia was achieved, I used a curette to clean off all nonviable tissue with combination of sharp dissection as well as curette and blunt dissection was used to clean all the infected wounds of which there were multiple small pun ctate wounds ranging in size from 1 cm to 3 cm along the lower extremity and in the transmetatarsal a mputation site. These were all debrided down to good healthy viable tissue stage I for these wounds. Ultimately, the area was copiously irrigated and then sterile dressing was placed over top. The pa tient tolerated the procedure without incident or complication, transferred to PACU in good condition . All counts were correct at the end of the case. ANNA/RENATO Voice ID: [id number] Report ID: [id number]
[2025-01-08] MEDS: MORPHINE 4 MG/ML SYR IV PRN (22:17)
[2025-01-08] MEDS: Meropenem 1,000 MG in NA CHLORIDE 0.9% 100 ML IV SCH (22:18)
[2025-01-09] MEDS: VANCOMYCIN 2 GM in NA CHLORIDE 0.9% 500 ML IVPB SCH ×2 (00:08→23:55)
[2025-01-09 04:38] LABS: Absolute Lymphocytes (CBC) 0.9 K/uL (0.7-4.9); Hematocrit 23.8 % (39.6-49.0); Hemoglobin 8.3 g/dL (13.6-17.9); MCH 32.2 pg (27.0-35.0); MCHC 34.9 g/dL (32.0-36.0); MCV 92.1 fL (80-100); MPV 7.6 fL (7.6-11.3); Nucleated RBC Absolute Count 0.0 (0-0); Nucleated Red Blood Cells % 0.0 % (0-0); RBC Red Blood Cell Count 2.58 M/uL (4.33-5.43); White Blood Count 7.50 thou/uL (4.3-10.9)
[2025-01-09] MEDS: HYDROCODONE/APAP 5/325 MG TAB PO PRN (12:47)
[2025-01-09] MEDS: SILVER SULFADIAZINE 1% 25 GM TOP ONE (13:43)
[2025-01-09] MEDS: COLLAGENASE 30 GM OINTMENT TOP SCH (14:18)
[2025-01-09] MEDS: SILVER SULFADIAZINE 1% 50 GM TOP SCH (14:19)
--- NOTE | 2025-01-09 14:42 | P.PN ---
Date of Service: 01/09/25 subjective: no concern or complaints. VS stable. WBC WNL. Pt tolerating abx with no issue. states is in pain. nurse just gave pain med recently before doing dressing change Objective - Physical Exam General: Alert and oriented x 3 HEENT: Atraumatic, Normocephalic, PERRLA Neck: Supple Respiratory: Clear to auscultation bilaterally Cardiovascular: Regular rate/rhythm, Normal S1 S2 Gastrointestinal: Soft and benign, NT, ND Integumentary: right foot cellulitis with OM Microbiology 01/06/25 21:40 Blood - Blood Aerobic Blood Culture - Preliminary No growth in 24 hours. 01/06/25 21:40 Blood - Blood Anaerobic Blood Culture - Preliminary No growth in 24 hours. 01/06/25 21:55 Blood - Blood Aerobic Blood Culture - Preliminary No growth in 24 hours. 01/06/25 21:55 Blood - Blood Anaerobic Blood Culture - Preliminary No growth in 24 hours. labs wbc 7.5, hgb 8.3, plt count 115, bun 46, cr 1.33, albumin 1.9 assessment and planning right foot cellulitis with OM s/p debridement 01/08 acute kidney injury on CKD stage 2 DM2 PAD severe protein calories malnourishment Pt declined amputations, only want debridement continue merrem and vanco empirically until culture result come back. anticipating 6 weeks of abx duration therapy wound culture pending blood culture neg case discussed and in agreement with Dr Conroy
--- NOTE | 2025-01-09 15:29 | P.PN ---
Subjective Date of Service: 01/09/25 Chief Complaint: Right leg pain Patient has no new complaint except intermittent pain in the right foot. No recorded fever. Patient is tolerating diet. Physical Examination - Vital Signs Temperature: 98.2 F Blood Pressure: 119/67 Pulse: 89 Respirations: 17 Pulse Ox (%): 98 Assessment And Plan - Plan Physical examination General: Alert and oriented x 3, NAD, Neck: No elevated JVD Heart: Heart sounds 1 and 2 normal, regular rhythm, normal rate, no pedal edema Lungs: Clear to auscultation bilaterally, adequate breath sounds bilaterally, no rhonchi or crackles. Abdomen: Soft, nondistended, nontender, normal bowel sounds. Extremities: No tenderness, left partial foot amputation, right partial foot potation. Skin: Right foot wound with clean dressing. Neuro: No focal motor deficit. Normal speech. Psychiatry: Normal mood, no agitation. Diagnosis Right lower extremity cellulitis History of transmetatarsal amputation Lactic acidosis Acute kidney injury Hyponatremia Leukocytosis Right foot cellulitis with possible osteomyelitis Surgery Dr. Lay performed debridement of the wound Infectious diseases following and considering treatment for osteomyelitis Patient currently on IV meropenem and vancomycin Infectious disease recommending 6 weeks of IV antibiotics. Pain control Monitor closely on telemetry Hypertension Continue home medications. Acute kidney injury on CKD stage II Renal function improved Continue to monitor renal function Monitor electrolytes and replace accordingly Diabetes Insulin sliding scale Accu-Chek before every meal and at bedtime PAD Tobacco use disorder Continue aspirin and Plavix and statins. DVT prophylaxis: heparin Advanced directive full code
[2025-01-09] MEDS: levETIRAcetam 500 MG TAB PO SCH (20:21)
[2025-01-09] MEDS: ATORVASTATIN 10 MG TAB PO SCH (20:21)
[2025-01-09] MEDS ORDERED: HOME MED 1 EA UNK (Lovastatin [Lovastatin] 20 MG Tablet) PO SCH (21:00)
--- NOTE | 2025-01-09 22:17 | CON ---
Date of Consultation: 01/08/2025 History Of Present Illness: The patient is seen for osteomyelitis. The patient has significant past medical history of diabetes mellitus, hypertension, alcohol use disorder, depression, seizure disord er, stroke, bilateral lower extremity peripheral vascular disease, right foot wound with recent toe a mputation. The patient was brought into the emergency room with right lower extremity pain. The pat zelalem feels much better now after being on antibiotic and pain medications. He is currently being giv en vancomycin and meropenem and tolerating antibiotic without any problem. Past Medical History: As per HPI. Social History: Nonsmoker, nondrinker. Tobacco positive. Alcohol positive. Family History: Noncontributory. Medications: Vancomycin and meropenem. See MARs for other medications. Allergies: NO KNOWN DRUG ALLERGIES. Review of Systems: A 10-point review was performed. Physical Examination: General: This is a 59-year-old male, lying in bed, not in any acute cardiopulmonary distress. Vital Signs: Temperature 98, pulse 100, respiration 20, blood pressure 117/58. HEENT: Unremarkable. Neck: Supple. Lungs: Basal crackles. Heart: S1, S2. Regular. Abdomen: Soft, nontender. Bowel sounds present. Extremities: Erythematous changes noted, right. Laboratory Data: WBC 9.2, hemoglobin 9.3, platelets 124, BUN of 46, creatinine 1.33. Assessment And Plan: This is a 59-year-old male with significant past medical history of diabetes me llitus and peripheral arterial disease, coming in with right foot cellulitis with osteomyelitis, stat us post debridement on January 08. 1. Acute kidney injury on CKD stage 2. 2. Severe protein-calorie malnourishment, currently on vancomycin and meropenem. Continue current tr eatment. No other recommendation at this time. Thank you Dr. Garcia for consult. NF/MODL Voice ID: [id number] Report ID: [id number]
[2025-01-10 05:43] LABS: Absolute Lymphocytes (CBC) 1.3 K/uL (0.7-4.9); Hematocrit 24.7 % (39.6-49.0); Hemoglobin 8.5 g/dL (13.6-17.9); MCH 31.9 pg (27.0-35.0); MCHC 34.3 g/dL (32.0-36.0); MCV 92.8 fL (80-100); MPV 8.3 fL (7.6-11.3); Nucleated RBC Absolute Count 0.0 (0-0); Nucleated Red Blood Cells % 0.0 % (0-0); RBC Red Blood Cell Count 2.67 M/uL (4.33-5.43); White Blood Count 7.20 thou/uL (4.3-10.9)
[2025-01-10 06:09] LABS: Anion Gap 11.0 mEq/L (5.0-15.0); BUN Blood Urea Nitrogen 17.0 mg/dL (7-18); Glucose Level 109.0 mg/dL (74-106); Potassium 3.0 mEq/L (3.5-5.1)
[2025-01-10] MEDS: KCL 20 MEQ/100 mL IVPB 20 MEQ/100 ML BAG IV SCH (06:34)
[2025-01-10] MEDS: ESCITALOPRAM 20 MG TAB PO SCH (08:51)
[2025-01-10] MEDS: SERTRALINE HCL 100 MG TAB PO SCH (08:51)
[2025-01-10] MEDS: GABAPENTIN 100 MG CAP PO SCH (08:51)
[2025-01-10] MEDS: CLOPIDOGREL 75 MG TABLET PO SCH (08:52)
[2025-01-10] MEDS: BUSPIRONE HCL 5 MG TABLET PO SCH (08:52)
[2025-01-10] MEDS: FUROSEMIDE 20 MG TABLET PO SCH (08:52)
[2025-01-10] MEDS: PHENYTOIN ER 100 MG CAP PO SCH (09:00)
--- NOTE | 2025-01-10 13:33 | P.PN ---
Subjective Date of Service: 01/10/25 Chief Complaint: Right leg pain Patient has no new complaints. He has been working out of his room periodically. No recorded fever. Physical Examination - Vital Signs Temperature: 98.0 F Blood Pressure: 109/56 Pulse: 91 Respirations: 19 Pulse Ox (%): 99 Assessment And Plan - Plan Physical examination General: Alert and oriented x 3, NAD, Neck: No elevated JVD Heart: Heart sounds 1 and 2 normal, regular rhythm, normal rate. Lungs: Clear to auscultation bilaterally, adequate breath sounds bilaterally, no rhonchi or crackles. Abdomen: Soft, nondistended, nontender, normal bowel sounds. Extremities: left partial foot amputation, right partial foot potation. Skin: Right foot wound with clean dressing. Neuro: No focal motor deficit. Diagnosis Right lower extremity cellulitis History of transmetatarsal amputation Lactic acidosis Acute kidney injury Hyponatremia Leukocytosis Right foot cellulitis with possible osteomyelitis Surgery Dr. Lay performed debridement of the wound Infectious diseases following and considering treatment for osteomyelitis Patient currently on IV meropenem and vancomycin Infectious disease recommending 6 weeks of IV antibiotics. Pain control Monitor closely on telemetry Hypertension Continue home medications. Acute kidney injury on CKD stage II Renal function improved Continue to monitor renal function Monitor electrolytes and replace accordingly Diabetes Insulin sliding scale Accu-Chek before every meal and at bedtime PAD Tobacco use disorder Continue aspirin and Plavix and statins. 01/10 Status post debridement. Continue wound care Osteomyelitis suspected. 6 weeks of IV antibiotics for osteomyelitis per infectious disease Continue IV meropenem and vancomycin director of business services following for arrangement for outpatient IV antibiotics. DVT prophylaxis: heparin Advanced directive full code
--- NOTE | 2025-01-10 17:02 | PN ---
Subjective: The patient lying in bed. No new acute event. Chart reviewed. Objective: Vital Signs: Reviewed. Temperature 98, pulse 91, respirations 19, blood pressure 109/56 . Lungs: Basal crackles. Heart: S1, S2. Regular. Abdomen: Soft, nontender. Bowel sounds present. Extremities: Trace edema. Wound noted. Laboratory Data: WBC 7.2, hemoglobin 8.5, platelets 134, BUN 17, creatinine 0.7. Cultures are pendi ng, negative for 24 hours from the blood cultures. Assessment And Plan: Right foot cellulitis with osteomyelitis, status post debridement on January 08. Acute kidney injury with chronic kidney disease. Diabetes mellitus. Diabetic neuropathy. Peripheral arterial disease. Severe protein-calorie malnourishment. Anemia of chronic disease. Consider long-term acute care. Continue IV antibiotic and supportive care. We will follow the patie nt as needed. NF/MODL Voice ID: [id number] Report ID: [id number]
[2025-01-11] MEDS: KCL 20 MEQ/100 mL IVPB 20 MEQ/100 ML BAG IV SCH (02:09)
[2025-01-11 07:33] LABS: Absolute Lymphocytes (CBC) 1.0 K/uL (0.7-4.9); Hematocrit 22.5 % (39.6-49.0); Hemoglobin 7.8 g/dL (13.6-17.9); MCH 32.0 pg (27.0-35.0); MCHC 34.7 g/dL (32.0-36.0); MCV 92.3 fL (80-100); MPV 8.0 fL (7.6-11.3); Nucleated RBC Absolute Count 0.0 (0-0); Nucleated Red Blood Cells % 0.0 % (0-0); RBC Red Blood Cell Count 2.44 M/uL (4.33-5.43); White Blood Count 6.40 thou/uL (4.3-10.9)
[2025-01-11 11:23] LABS: Anion Gap 11.2 mEq/L (5.0-15.0); BUN Blood Urea Nitrogen 11.0 mg/dL (7-18); Glucose Level 158.0 mg/dL (74-106); Potassium 3.2 mEq/L (3.5-5.1)
[2025-01-11] MEDS: POTASSIUM CL SA 10 MEQ TAB PO ONE (13:16)
--- NOTE | 2025-01-11 15:35 | P.PN ---
Subjective Date of Service: 01/11/25 Chief Complaint: Right leg pain Patient denies any new complaint. He has been afebrile, eating well. He is mobile with his wheelchair. Physical Examination - Vital Signs Temperature: 98.1 F Blood Pressure: 107/52 Pulse: 81 Respirations: 18 Pulse Ox (%): 98 Assessment And Plan - Plan Physical examination General: Alert and oriented x 3, NAD, Neck: No elevated JVD Heart: Heart sounds 1 and 2 normal, regular rhythm, normal rate. Lungs: Clear to auscultation bilaterally, adequate breath sounds bilaterally, no rhonchi or crackles. Abdomen: Soft, nondistended, nontender, normal bowel sounds. Extremities: left partial foot amputation, right partial foot potation. Skin: Right foot wound with clean dressing. Neuro: No focal motor deficit. Diagnosis Right lower extremity cellulitis History of transmetatarsal amputation Lactic acidosis Acute kidney injury Hyponatremia Leukocytosis Right foot cellulitis with possible osteomyelitis Surgery Dr. Lay performed debridement of the wound Infectious diseases following and considering treatment for osteomyelitis Patient currently on IV meropenem and vancomycin Infectious disease recommending 6 weeks of IV antibiotics. Pain control Monitor closely on telemetry Hypertension Continue home medications. Acute kidney injury on CKD stage II Renal function improved Continue to monitor renal function Monitor electrolytes and replace accordingly Diabetes Insulin sliding scale Accu-Chek before every meal and at bedtime PAD Tobacco use disorder Continue aspirin and Plavix and statins. 01/10 Status post debridement. Continue wound care Osteomyelitis suspected. 6 weeks of IV antibiotics for osteomyelitis per infectious disease Continue IV meropenem and vancomycin field services manager following for arrangement for outpatient IV antibiotics. 01/11 Deep tissue wound culture growing gram-positive cocci Continue local wound care Patient plan for 6 weeks of IV antibiotics for osteomyelitis Continue IV meropenem vancomycin Infectious disease to follow. Hemoglobin has been dropping slowly since admission. No active bleeding Monitor and transfuse as needed for hemoglobin less than 7 Monitor for melena DVT prophylaxis: heparin Advanced directive full code
[2025-01-12 06:17] LABS: Absolute Lymphocytes (CBC) 1.5 K/uL (0.7-4.9); Hematocrit 24.3 % (39.6-49.0); Hemoglobin 8.5 g/dL (13.6-17.9); MCH 32.1 pg (27.0-35.0); MCHC 35.1 g/dL (32.0-36.0); MCV 91.6 fL (80-100); MPV 7.6 fL (7.6-11.3); Nucleated RBC Absolute Count 0.0 (0-0); Nucleated Red Blood Cells % 0.0 % (0-0); RBC Red Blood Cell Count 2.65 M/uL (4.33-5.43); White Blood Count 9.20 thou/uL (4.3-10.9)
[2025-01-12 06:32] LABS: Anion Gap 11.6 mEq/L (5.0-15.0); BUN Blood Urea Nitrogen 14.0 mg/dL (7-18); Glucose Level 121.0 mg/dL (74-106); Potassium 3.6 mEq/L (3.5-5.1)
[2025-01-12] MEDS ORDERED: POTASSIUM CL SA 10 MEQ TAB PO ONE (13:25)
[2025-01-12] MEDS: POTASSIUM CL SA 10 MEQ TAB PO ONE (13:26)
--- NOTE | 2025-01-12 14:24 | P.PN ---
Date of Service: 01/12/25 subjective: no concern or complaints. VS stable. WBC WNL. Pt tolerating abx with no issue. Objective - Physical Exam General: Alert and oriented x 3 HEENT: Atraumatic, Normocephalic, PERRLA Neck: Supple Respiratory: Clear to auscultation bilaterally Cardiovascular: Regular rate/rhythm, Normal S1 S2 Gastrointestinal: Soft and benign, NT, ND Integumentary: right foot cellulitis with OM Microbiology 01/06/25 21:40 Blood - Blood Aerobic Blood Culture - Preliminary No growth in 24 hours. 01/06/25 21:40 Blood - Blood Anaerobic Blood Culture - Preliminary No growth in 24 hours. 01/06/25 21:55 Blood - Blood Aerobic Blood Culture - Preliminary No growth in 24 hours. 01/06/25 21:55 Blood - Blood Anaerobic Blood Culture - Preliminary No growth in 24 hours. labs wbc 9.2, hgb 8.5, plt count 257, bun 14, cr 0.71, albumin 1.9 assessment and planning right foot cellulitis with OM s/p debridement 01/08 acute kidney injury on CKD stage 2 DM2 PAD severe protein calories malnourishment Pt declined amputations, only want debridement right foot wound grew MRSA. continue vancomycin x 6 weeks wound culture pending blood culture neg case discussed and in agreement with Dr Conroy
[2025-01-13 04:47] LABS: Anion Gap 9.3 mEq/L (5.0-15.0); BUN Blood Urea Nitrogen 9.0 mg/dL (7-18); Glucose Level 93.0 mg/dL (74-106); Potassium 3.3 mEq/L (3.5-5.1)
[2025-01-13] MEDS: POTASSIUM CL SA 10 MEQ TAB PO ONE (09:34)
--- NOTE | 2025-01-13 22:40 | PN ---
Subjective: The patient is lying in bed, somnolent, not in any acute distress. Objective: Vital Signs: Temperature 98, pulse 86, respiration 12, blood pressure 112/56. Lungs: Basal crackles. Heart: S1, S2. Regular. Abdomen: Soft, nontender. Bowel sounds present. Extremities: Trace edema. Laboratory Data: BUN 9, creatinine 0.5, WBC 9.2, hemoglobin 8.5, platelets 257. The patient is curr ently on vancomycin. Assessment And Plan: 1. Right foot MRSA infection. 2. Right foot cellulitis with osteomyelitis, status post debridement on January 08. 3. Acute kidney injury. 4. Diabetes mellitus. 5. Peripheral arterial disease. 6. Severe protein-calorie malnourishment. 7. Continue antibiotic and wound care for 6 weeks. We will follow the patient as needed. NF/MODL Voice ID: [id number] Report ID: [id number]
[2025-01-13 23:04] VITALS: O2SAT 97
[2025-01-14 04:28] LABS: Absolute Lymphocytes (CBC) 1.5 K/uL (0.7-4.9); Hematocrit 22.5 % (39.6-49.0); Hemoglobin 7.7 g/dL (13.6-17.9); MCH 32.1 pg (27.0-35.0); MCHC 34.4 g/dL (32.0-36.0); MCV 93.3 fL (80-100); MPV 7.3 fL (7.6-11.3); Nucleated RBC Absolute Count 0.0 (0-0); Nucleated Red Blood Cells % 0.1 % (0-0); RBC Red Blood Cell Count 2.41 M/uL (4.33-5.43); White Blood Count 7.60 thou/uL (4.3-10.9)
[2025-01-14 04:45] LABS: ALT/SGPT 130.0 U/L (16-61); AST/SGOT 153.0 U/L (15-37); Albumin 1.8 g/dL (3.4-5.0); Albumin/Globulin Ratio 0.4 (1.1-1.8); Alkaline Phosphatase 71.0 U/L (45-117); Anion Gap 8.6 mEq/L (5.0-15.0); BUN Blood Urea Nitrogen 8.0 mg/dL (7-18); Globulin 4.5 g/dL (2.3-3.5); Glucose Level 90.0 mg/dL (74-106); Potassium 3.6 mEq/L (3.5-5.1)
[2025-01-14] MEDS: POTASSIUM CL SA 10 MEQ TAB PO ONE (06:21)
--- NOTE | 2025-01-14 13:40 | P.PN ---
Date of Service: 01/14/25 subjective:pt report pain to right foot, already had pain med. VS stable. WBC WNL. Pt tolerating abx with no issue. Objective - Physical Exam General: Alert and oriented x 3 HEENT: Atraumatic, Normocephalic, PERRLA Neck: Supple Respiratory: Clear to auscultation bilaterally Cardiovascular: Regular rate/rhythm, Normal S1 S2 Gastrointestinal: Soft and benign, NT, ND Integumentary: right foot cellulitis with OM Microbiology 01/06/25 21:40 Blood - Blood Aerobic Blood Culture - Preliminary No growth in 24 hours. 01/06/25 21:40 Blood - Blood Anaerobic Blood Culture - Preliminary No growth in 24 hours. 01/06/25 21:55 Blood - Blood Aerobic Blood Culture - Preliminary No growth in 24 hours. 01/06/25 21:55 Blood - Blood Anaerobic Blood Culture - Preliminary No growth in 24 hours. labs wbc 7.6, hgb 7.7, plt count 273, bun 8, cr 0.61, albumin 1.8 assessment and planning right foot cellulitis with OM s/p debridement 01/08 acute kidney injury on CKD stage 2 DM2 PAD severe protein calories malnourishment Pt declined amputations, only want debridement right foot wound grew MRSA. continue vancomycin x 6 weeks blood culture neg will continue to f/u as needed case discussed and in agreement with Dr Conroy
[2025-01-14] MEDS: HYDROCODONE/APAP 7.5/325 MG TAB PO ONE (20:42)
[2025-01-15 01:09] VITALS: BMI 30.4
[2025-01-15 09:00] LABS: Absolute Lymphocytes (CBC) 1.2 K/uL (0.7-4.9); Hematocrit 23.9 % (39.6-49.0); Hemoglobin 8.2 g/dL (13.6-17.9); MCH 32.3 pg (27.0-35.0); MCHC 34.3 g/dL (32.0-36.0); MCV 94.1 fL (80-100); MPV 7.9 fL (7.6-11.3); Nucleated RBC Absolute Count 0.0 (0-0); Nucleated Red Blood Cells % 0.0 % (0-0); RBC Red Blood Cell Count 2.54 M/uL (4.33-5.43); White Blood Count 7.10 thou/uL (4.3-10.9)
[2025-01-15 09:12] LABS: ALT/SGPT 104.0 U/L (16-61); AST/SGOT 91.0 U/L (15-37); Albumin 1.9 g/dL (3.4-5.0); Albumin/Globulin Ratio 0.4 (1.1-1.8); Alkaline Phosphatase 67.0 U/L (45-117); Anion Gap 10.8 mEq/L (5.0-15.0); BUN Blood Urea Nitrogen 8.0 mg/dL (7-18); Globulin 4.8 g/dL (2.3-3.5); Glucose Level 112.0 mg/dL (74-106); Potassium 3.8 mEq/L (3.5-5.1)
[2025-01-15] MEDS: BUSPIRONE HCL 5 MG TABLET PO SCH (13:43)
--- NOTE | 2025-01-15 19:10 | RAD REPORT ---
EXAM: Chest Single View HISTORY: 59 years Male PICC line insertion COMPARISON: 01/06/2025 FINDINGS: LUNGS/PLEURA: Mild opacities in the right lung base again noted. This may reflect atelectasis.. No ot her acute process identified. CARDIAC/MEDIASTINUM: Stable size and configuration. UPPER ABDOMEN: No significant abnormality. BONES: No acute abnormality. LINES/TUBES/OTHER: Right subclavian approach PICC with tip overlying the SVC in satisfactory position . IMPRESSION: Similar mild opacities in the right lung base which could reflect atelectasis. PICC in satisfactory p osition.
[2025-01-15] MEDS: Mupirocin NASAL 2 APPL/1 GM TUBE NAS SCH (19:43)
--- NOTE | 2025-01-15 22:44 | PN ---
Subjective: The patient lying in bed. No new acute event. Chart reviewed. Denies any headache, na usea, vomiting, chest pain, abdominal pain, constipation, or diarrhea. Objective: Vital Signs: Temperature 98, pulse 95, respirations 18, blood pressure 104/51. Lungs: Basal crackles. Heart: S1, S2. Regular. Abdomen: Soft, nontender. Bowel sounds present. Extremities: Wound noted. Laboratory Data: Shows WBC 7.1, hemoglobin 8.2, platelets 252, BUN 8, creatinine 0.6, albumin level is 1.9. Wound cultures from right leg shows MRSA. Assessment And Plan: 1. Right foot MRSA infection with cellulitis and osteomyelitis. 2. Acute kidney injury. 3. Diabetes mellitus and neuropathy. 4. Peripheral arterial disease. 5. Severe protein-calorie malnourishment. Continue antibiotic for 6 weeks. Prognosis guarded. We will follow the patient as needed. NF/MODL Voice ID: [id number] Report ID: [id number]
--- NOTE | 2025-01-16 13:01 | P.PN ---
Date of Service: 01/16/25 subjective:pt report pain to right foot, already had pain med. VS stable. WBC WNL. Pt tolerating abx with no issue. Objective - Physical Exam General: Alert and oriented x 3 HEENT: Atraumatic, Normocephalic, PERRLA Neck: Supple Respiratory: Clear to auscultation bilaterally Cardiovascular: Regular rate/rhythm, Normal S1 S2 Gastrointestinal: Soft and benign, NT, ND Integumentary: right foot cellulitis with OM Microbiology 01/06/25 21:40 Blood - Blood Aerobic Blood Culture - Preliminary No growth in 24 hours. 01/06/25 21:40 Blood - Blood Anaerobic Blood Culture - Preliminary No growth in 24 hours. 01/06/25 21:55 Blood - Blood Aerobic Blood Culture - Preliminary No growth in 24 hours. 01/06/25 21:55 Blood - Blood Anaerobic Blood Culture - Preliminary No growth in 24 hours. labs wbc 7.1, hgb 8.2, plt count 252, bun 8, cr 0.65, albumin 1.9 assessment and planning right foot cellulitis with OM s/p debridement 01/08 acute kidney injury on CKD stage 2 DM2 PAD severe protein calories malnourishment Pt declined amputations, only want debridement right foot wound grew MRSA. continue vancomycin x 6 weeks blood culture neg will continue to f/u as needed case discussed and in agreement with Dr Conroy
[2025-01-16] MEDS: VANCOMYCIN 2 GM in NA CHLORIDE 0.9% 500 ML IVPB SCH (15:07)
[2025-01-16 17:25] VITALS: TEMP 98.7
[2025-01-16 18:20] VITALS: BP 110/54
== END 2025-01-16 20:58 | disposition home health service (06) | DRG 853 ==
LOC: ER 21:18 → ERHOLD 23:49 → 2ND 01-07 00:35
PROVIDERS: ADMIT Family Medicine; ATTEND Hospitalist
PROC: 0JBQ0ZZ Excision of Right Foot Subcutaneous Tissue and Fascia, Open Approach (ICD-10-PCS; principal; 2025-01-08 11:30)
PROC: 02HV33Z Insertion of Infusion Device into Superior Vena Cava, Percutaneous Approach (ICD-10-PCS; 2025-01-15)
DX: A41.9 Sepsis, unspecified organism (principal); E43 Unspecified severe protein-calorie malnutrition; J18.9 Pneumonia, unspecified organism; E87.20 Acidosis, unspecified; I50.32 Chronic diastolic (congestive) heart failure; N17.9 Acute kidney failure, unspecified; J44.0 Chronic obstructive pulmonary disease with (acute) lower respiratory infection; M86.271 Subacute osteomyelitis, right ankle and foot; L03.115 Cellulitis of right lower limb; E87.1 Hypo-osmolality and hyponatremia; I13.0 Hypertensive heart and chronic kidney disease with heart failure and stage 1 through stage 4 chronic kidney disease, or unspecified chronic kidney disease; R65.20 Severe sepsis without septic shock; N18.2 Chronic kidney disease, stage 2 (mild); E11.22 Type 2 diabetes mellitus with diabetic chronic kidney disease; E11.69 Type 2 diabetes mellitus with other specified complication; E11.51 Type 2 diabetes mellitus with diabetic peripheral angiopathy without gangrene; D63.1 Anemia in chronic kidney disease; E86.0 Dehydration; E78.5 Hyperlipidemia, unspecified; K21.9 Gastro-esophageal reflux disease without esophagitis; I25.10 Atherosclerotic heart disease of native coronary artery without angina pectoris; F17.210 Nicotine dependence, cigarettes, uncomplicated; B95.62 Methicillin resistant Staphylococcus aureus infection as the cause of diseases classified elsewhere; Z56.0 Unemployment, unspecified; Z95.5 Presence of coronary angioplasty implant and graft; Z79.82 Long term (current) use of aspirin; Z79.02 Long term (current) use of antithrombotics/antiplatelets; Z86.73 Personal history of transient ischemic attack (TIA), and cerebral infarction without residual deficits; Z79.899 Other long term (current) drug therapy; Z89.512 Acquired absence of left leg below knee; Z68.30 Body mass index [BMI] 30.0-30.9, adult
CPT/HCPCS: 36415; 36569; 71045; 80048; 80053; 80202; 83605; 83880; 84132; 84484; 85025; 85610; 85730; 87040; 87070; 87075; 87077; 87186; 87205; 93005; 99285; J0692; J1100; J1171; J1790; J2003; J2185; J2250; J2270; J2405; J2704; J2765; J3010; J3370; J3480; J3590; J7030; J7040; J7120

== ENCOUNTER 2025-02-01 21:33 | Inpatient (IN) | payer OTHER ==
[2025-02-01] MEDS ORDERED: HYDROMORPHONE HCL 1 MG/ML INJ ONE (22:59)
[2025-02-01] MEDS ORDERED: LORazepam 2 MG/ML VIAL ONE (22:59)
[2025-02-01] MEDS ORDERED: ONDANSETRON 4 MG/2 ML VIAL ONE (22:59)
[2025-02-01] MEDS ORDERED: NA CHLORIDE 0.9% 500 ML ONE (23:00)
[2025-02-01] MEDS ORDERED: NA CHLORIDE 0.9% 100 ML ONE (23:23)
[2025-02-01] MEDS ORDERED: PIPERACIL/TAZO 3.375 GM VIAL IV ONE (23:24)
[2025-02-01 23:32] LABS: Absolute Lymphocytes (CBC) 3.2 K/uL (0.7-4.9); Hematocrit 31.4 % (39.6-49.0); Hemoglobin 10.5 g/dL (13.6-17.9); MCH 30.7 pg (27.0-35.0); MCHC 33.6 g/dL (32.0-36.0); MCV 91.4 fL (80-100); MPV 7.1 fL (7.6-11.3); Nucleated RBC Absolute Count 0.0 (0-0); Nucleated Red Blood Cells % 0.0 % (0-0); RBC Red Blood Cell Count 3.43 M/uL (4.33-5.43); White Blood Count 14.70 thou/uL (4.3-10.9)
[2025-02-01 23:38] LABS: PT Prothrombin Time 14.6 SECONDS (10-13.0); Protime INR 1.3
[2025-02-01 23:53] LABS: ALT/SGPT 66 U/L (16-61); AST/SGOT 39 U/L (15-37); Albumin 2.4 g/dL (3.4-5.0); Albumin/Globulin Ratio 0.4 (1.1-1.8); Alkaline Phosphatase 83 U/L (45-117); Anion Gap 12.5 mEq/L (5.0-15.0); BUN Blood Urea Nitrogen 43 mg/dL (7-18); Globulin 6.2 g/dL (2.3-3.5); Glucose Level 90 mg/dL (74-106); Lipase 149 U/L (13-75); Magnesium 2.4 mg/dL (1.6-2.4); NT PRO-BNP 1291 pg/mL (<125); Potassium 3.5 mEq/L (3.5-5.1); Troponin High Sensitivity 8.5 pg/mL (<58.9)
[2025-02-01 23:54] LABS: Bilirubin Indirect, Calculated 0.0 mg/dL (0.2-0.8)
[2025-02-02] MEDS ORDERED: FOSPHENYTOIN PE 500 MG/10 ML VIAL ONE (00:35)
[2025-02-02] MEDS ORDERED: NA CHLORIDE 0.9% 50 ML ONE (00:35)
--- NOTE | 2025-02-02 00:38 | EDPHYS ---
Physician Documentation [facility] Name: Karlos Leblanc Age: 59 yrs Sex: Male : 1965 Arrival Date: 02/01/2025 Time: 21:33 Bed 8 Private MD: TINY Physician Aaron Pichardo HPI: 02/01 23:10 This 59 yrs old Male presents to ER via Ambulatory with complaints of Leg riya Pain, Doesn't Feel Right, port problem. 23:10 The patient presents with decreased range of motion, pain, tenderness. The complaints riya affect the lateral aspect of right calf, right ankle, lateral aspect of right foot, right calf, right Achilles, right heel, right avalos, anterior aspect of right ankle and dorsum of right foot. Context: The problem was sustained at an unknown site, resulted from a mis-step, a penetrating injury, the patient tripping, twisting of the extremity, an unknown cause, n , long hx PVD , TOBACCO ABUSE. Modifying factors: The symptoms are alleviated by nothing. remaining still, the symptoms are aggravated by movement, bending knee. Associated signs and symptoms: The patient has no apparent associated signs or symptoms. Severity of symptoms: At their worst the symptoms were moderate, in the emergency department the symptoms are unchanged. The patient has experienced similar episodes in the past, multiple times. Historical: - Allergies: 21:52 NKDA; hm5 - PMHx: 21:52 Chronic obstructive lung disease; Hypertension; Myocardial infarction; Seizures; hm5 vascular disease (Right toes amputati); - PSHx: 21:52 cardiac stents; Left Leg Amputation (below the knee); Right toes amputation; hm5 - Immunization history:: Adult Immunizations up to date. - Infectious Disease History:: Denies. - Social history:: Smoking status: Patient reports the use of cigarette tobacco products, Patient uses alcohol, but reports only rare drinking. Patient/guardian denies using street drugs, IV drugs. - Family history:: not pertinent. ROS: 23:10 Constitutional: Negative for fever, chills, and weight loss, Eyes: Negative for injury, riya pain, redness, and discharge, ENT: Negative for injury, pain, and discharge, Neck: Negative for injury, pain, and swelling, Cardiovascular: Negative for chest pain, palpitations, and edema, Abdomen/GI: Negative for abdominal pain, nausea, vomiting, diarrhea, and constipation, Back: Negative for injury and pain, : Negative for injury, bleeding, discharge, and swelling, Skin: Negative for injury, rash, and discoloration, Neuro: Negative for headache, weakness, numbness, tingling, and seizure, Psych: Negative for depression, anxiety, suicide ideation, homicidal ideation, and hallucinations, Allergy/Immunology: Negative for hives, rash, and allergies, Endocrine: Negative for neck swelling, polydipsia, polyuria, polyphagia, and marked weight changes, Hematologic/Lymphatic: Negative for swollen nodes, abnormal bleeding, and unusual bruising, 23:10 Respiratory: Positive for cough, shortness of breath, 23:10 MS/extremity: Positive for ecchymosis, pain, warmth, of the lateral aspect of right foot, right Achilles, right heel, medial aspect of right calf, right ankle, medial aspect of right foot, right avalos, anterior aspect of right ankle and dorsum of right foot, Exam: 23:10 Constitutional: This is a well developed, well nourished patient who is awake, alert, riya and in no acute distress. Head/Face: Normocephalic, atraumatic. Eyes: Pupils equal round and reactive to light, extra-ocular motions intact. Lids and lashes normal. Conjunctiva and sclera are non-icteric and not injected. Cornea within normal limits. Periorbital areas with no swelling, redness, or edema. ENT: Nares patent. No nasal discharge, no septal abnormalities noted. Tympanic membranes are normal and external auditory canals are clear. Oropharynx with no redness, swelling, or masses, exudates, or evidence of obstruction, uvula midline. Mucous membranes moist. Neck: Trachea midline, no thyromegaly or masses palpated, and no cervical lymphadenopathy. Supple, full range of motion without nuchal rigidity, or vertebral point tenderness. No Meningismus. Chest/axilla: Normal chest wall appearance and motion. Nontender with no deformity. No lesions are appreciated. Cardiovascular: Regular rate and rhythm with a normal S1 and S2. No gallops, murmurs, or rubs. Normal PMI, no JVD. No pulse deficits. Respiratory: Lungs have equal breath sounds bilaterally, clear to auscultation and percussion. No rales, rhonchi or wheezes noted. No increased work of breathing, no retractions or nasal flaring. Abdomen/GI: Soft, non-tender, with normal bowel sounds. No distension or tympany. No guarding or rebound. No evidence of tenderness throughout. Back: No spinal tenderness. No costovertebral tenderness. Full range of motion. Male : Normal genitalia with no discharge or lesions. Neuro: Awake and alert, GCS 15, oriented to person, place, time, and situation. Cranial nerves II-XII grossly intact. Motor strength 5/5 in all extremities. Sensory grossly intact. Cerebellar exam normal. Normal gait. Psych: Awake, alert, with orientation to person, place and time. Behavior, mood, and affect are within normal limits. 23:10 Musculoskeletal/extremity: ROM: limited active range of motion, limited passive range of motion, limited active range of motion due to pain, limited passive range of motion due to pain, Pulses: noted to be 2+ in the right posterior tibial artery and right dorsalis pedis artery, 23:10 Neuro: Orientation: is normal, appropriate for stated age, Mentation: is normal, Memory: is normal, appropriate for stated age, no acute changes, Cranial nerves: grossly normal, is grossly normal based on the patient's age, no acute changes, Cerebellar function: is grossly normal based on the patient's age, no acute changes, Motor: moves all fours, strength is normal, Sensation: light touch is decreased in the right leg and left leg, Gait: not tested. 02/02 00:15 ECG was reviewed by the Attending Physician. riya Vital Signs: 02/01 21:49 BP 117 / 68; Pulse 98; Resp 19; Temp 98.1(O); Pulse Ox 100% on R/A; Weight 104.33 kg; hm5 Height 6 ft. 1 in. ; Pain 10/10; 23:41 BP 149 / 63; Pulse 88; Resp 16 S; Pulse Ox 97% on R/A; lg3 02/02 01:06 BP 147 / 84; Pulse 87; Resp 16 S; Pulse Ox 100% on R/A; lg3 02:08 BP 119 / 57; Pulse 80; Resp 16 S; Pulse Ox 99% on R/A; lg3 05:00 BP 124 / 62; Pulse 84; Resp 16; Pulse Ox 99% ; cp4 02/01 21:49 Body Mass Index 30.34 (104.33 kg, 185.42 cm) hm5 02/01 21:49 Pain Scale: Adult 5 MDM: 02/01 22:06 Medical Screening Exam initiated riya 23:14 Differential diagnosis: closed fracture, contusion, abrasion, tendonitis. [facility]: vital signs, nurses notes, lab test result(s), EKG, radiologic studies, CT scan, plain films. Consideration of Admission/Observation Patient was admitted/placed on observation. Escalation of care including admission/observation considered. I considered the following discharge prescriptions or medication management in the emergency department Medications were administered in the Emergency Department. See MAR. Independent interpretation of the following test(s) in the Emergency Department EKG: See my EKG interpretation above. Test considered but Not performed: Ultrasound NO ARTERIAL DOPPLER. Care significantly affected by the following chronic conditions: Hypertension, Chronic Obstructive Pulmonary Disease, PVD, SEIZURE, [place], CAD. 02/01 22:53 Order name: Basic Metabolic Panel; Complete [facility]: [facility]:17 [facility] 02/01 22:53 Order name: CBC with Diff; Complete Time: 00:17 [facility] 02/01 22:53 Order name: LFT's; Complete Time: 00:17 [facility] 02/01 22:53 Order name: Magnesium; Complete Time[facility] 00:17 [facility] 02/01 22:53 Order name: NT PRO-BNP; Complete Time: 00:17 [facility] 02/01 22:53 Order name: PT-INR; Complete Time: 00:17 [facility] 02/01 22:53 Order name: Troponin HS; Complete Time: 00:17 [facility] 02/01 22:53 Order name: Dilantin; Complete Time: 00:17 [facility] 02/01 22:53 Order name: UA Rfx Phuc Cult if indicated [facility] 02/01 22:53 Order name: Lipase; Complete Time: 00:17 [facility] 02/02 03:33 Order name: UA Rfx Phuc Cult if indicated [facility] 02/02 03:33 Order name: Basic Metabolic Panel [facility] 02/02 03:33 Order name: Basic Metabolic Panel [facility] 02/02 03:33 Order name: CBC with Automated Diff [facility] 02/02 03:33 Order name: CBC with Automated Diff [facility] 02/02 03:36 Order name: Urine Drug Screen [facility] 02/01 22:53 Order name: XRAY Chest (1 view) [facility] 02/01 23:02 Order name: Head C Spine Mpr Wo Con [facility] 02/01 23:03 Order name: Chest Abd Pelvis Wo Con [facility] 02/01 23:09 Order name: Foot Right 3 View XRAY [facility] 02/02 03:33 Order name: CONS Physician Consult [facility] 02/01 22:53 Order name: Cardiac monitoring; Complete Time: 23:26 [facility] 02/01 22:53 Order name: EKG - Nurse/Tech; Complete Time: 23:26 [facility] 02/01 22:53 Order name: IV Saline Lock; Complete Time: 23:24 [facility] 02/01 22:53 Order name: Labs collected and sent; Complete Time: 23:24 [facility] 02/01 22:53 Order name: O2 Per Protocol; Complete Time: 23:24 [facility] 02/01 22:53 Order name: O2 Sat Monitoring; Complete Time: 23:26 [facility] 02/01 23:08 Order name: Wound Care: right leg; Complete Time: 01:06 [facility] EC/08 00:15 Rate is 81 beats/min. Rhythm is regular. QRS Lee is Normal. TN interval is normal. QRS riya interval is normal. QT interval is prolonged at 490 msec. No Q waves. T waves are Normal. No ST changes noted. Clinical impression: NSR w/ Non-specific ST/T Changes and No evidence of ischemia. Interpreted by me. Reviewed by me. Administered Medications: 02/01 23:40 Drug: HYDROmorphone IVP 1 mg IVP once Route: IVP; Site: left forearm; [facility] 02/02 01:04 Follow up: Response: No adverse reaction; Marked relief of symptoms [facility] 02/01 23:40 Drug: Ondansetron IVP 8 mg IVP once; over 2 minutes Route: IVP; Site: left forearm; [facility] 02/02 01:04 Follow up: Response: No adverse reaction; Marked relief of symptoms [facility] 02/01 23:40 Drug: Ativan IVP 1 mg IVP once Route: IVP; Site: left forearm; [facility] 02/02 01:04 Follow up: Response: No adverse reaction; Marked relief of symptoms; RASS: Drowsy (-1) [facility] 02/01 23:40 Drug: Piperacillin-Tazobactam IVPB 3.375 grams IVPB once over 60 mins; (mix in NS 100 lg3 mL) Route: IVPB; Infused Over: 60 mins; Site: left forearm; 02/02 01:04 Follow up: Response: No adverse reaction; IV Status: Completed infusion; IV Intake: lg3 100ml 02/01 23:41 Drug: NS 0.9% IV 500 ml 500 ml IV at 1 bolus once; to be given as a bolus over 30 lg3 minutes Volume: 500 ml; Route: IV; Rate: 1 bolus; Site: left forearm; 02/02 01:04 Follow up: Response: No adverse reaction; IV Status: Completed infusion; IV Intake: lg3 500ml 00:47 Drug: Fosphenytoin IVPB 1 grams IVPB once; (mix in 50 to 100mL NS) Route: IVPB; Site: lg3 left forearm; 01:05 Follow up: Response: No adverse reaction; IV Status: Completed infusion; IV Intake: [id number] 01:08 Not Given (Physician Discretion): ativan1 mg IVP once lg3 Disposition Summary: 02/02/25 00:37 Hospitalization Ordered Notes: Hospitalization Status: Inpatient Admission riya Provider: Fili Ramirez cha [facility] riya Condition: Fair riya Problem: new riya Symptoms: have improved riya Bed[facility] Room Assignment: 208(02/02/25 03:37) [facility] Diagnosis - Cellulitis and acute lymphangitis of other parts of limb - right lower extremitysp riya wound revision, kovacev - Elevated white blood cell count riya - Other seizures - hx of , subtheraputic Dilantin level riya - Chronic kidney disease, unspecified riya - Peripheral vascular disease, unspecified riya - Tobacco abuse counseling riya - Tobacco use riya Forms: - Medication Reconciliation Form riya - SBAR form riya - Leadership Thank You Letter riya Signatures: Dispatcher [employer] Aaron Schumacher MD MD cha Able, Lacie, RN RN 3 Damaris Roman [facility] Latia Rose, TAVO RN 5 Corrections: (The following items were deleted from the chart) 02/01 22:54 22:54 BASIC METABOLIC PANEL+C.LAB.BRZ ordered. EDMS EDMS 22:54 22:54 CBC+H.LAB.BRZ ordered. EDMS EDMS 22:54 22:54 HEPATIC FUNCTION+C.LAB.BRZ ordered. EDMS EDMS 22:54 22:54 MAGNESIUM+C.LAB.BRZ ordered. EDMS EDMS 22:54 22:54 PROBNP+C.LAB.BRZ ordered. EDMS EDMS 22:54 22:54 PROTIME (+INR)+COAG.LAB.BRZ ordered. EDMS EDMS 22:54 22:54 Troponin High Sensitivity+C.LAB.BRZ ordered. EDMS EDMS 22:54 22:54 PHENYTOIN (DILANTIN)+C.LAB.BRZ ordered. EDMS EDMS 22:54 22:54 UA Rfx Phuc Cult if indicated+U.LAB.BRZ ordered. EDMS EDMS 22:54 22:54 LIPASE+C.LAB.BRZ ordered. EDMS EDMS 22:54 22:54 Chest Single View+RAD.RAD.BRZ ordered. EDMS EDMS 22:54 22:54 Head C Spine Cap Wo Con+CT.RAD.BRZ ordered. EDMS EDMS 02/02 03:37 00:37 riya kmf
--- NOTE | 2025-02-02 00:38 | ER ---
Nurse's Notes [facility] Name: Karlos Leblanc Age: 59 yrs Sex: Male : 1965 Arrival Date: 02/01/2025 Time: 21:33 Bed 8 Private MD: Diagnosis: Cellulitis and acute lymphangitis of other parts of limb-right lower extremitysp wound revision, kovacev;Elevated white blood cell count;Other seizures-hx of , subtheraputic Dilantin level;Chronic kidney disease, unspecified;Peripheral vascular disease, unspecified;Tobacco abuse counseling;Tobacco use Presentation: 02/01 21:49 Chief complaint: Patient states: lower back pain, right leg pain, right foot pain hm5 approx 4-5 days ago. pt reports he had a recent debridement on right foot about 1wk ago. denies nausea, vomiting, fever. reports chills. Coronavirus screen: Vaccine status: Patient reports receiving the 2nd dose of the covid vaccine. Client denies travel out of the [place] in the last 14 days. At this time, the client does not indicate any symptoms associated with coronavirus-19. Ebola Screen: Patient negative for fever greater than or equal to 101.5 degrees Fahrenheit, and additional compatible Ebola Virus Disease symptoms Patient denies exposure to infectious person. Patient denies travel to an Ebola-affected area in the 21 days before illness onset. Initial Sepsis Screen: Does the patient meet any 2 criteria? No. Patient's initial sepsis screen is negative. Does the patient have a suspected source of infection? No. Patient's initial sepsis screen is negative. Risk Assessment: Do you want to hurt yourself or someone else? Patient reports no desire to harm self or others. Onset of symptoms was January 28, 2025. 21:49 Method Of Arrival: Ambulatory [facility] 21:49 Acuity: KENIA 3 5 Triage Assessment: 21:54 General: Appears in no apparent distress. uncomfortable, unkempt, well developed, well 5 nourished, Behavior is calm, cooperative. Pain: Complains of pain in right leg, right foot, lower back Pain currently is 10 out of 10 on a pain scale. Neuro: No deficits noted. Cardiovascular: No deficits noted. Respiratory: No deficits noted. GI: No deficits noted. No signs and/or symptoms were reported involving the gastrointestinal system. : No deficits noted. No signs and/or symptoms were reported regarding the genitourinary system. Derm: No deficits noted. No signs and/or symptoms reported regarding the dermatologic system. Musculoskeletal: Reports pain in right leg, right foot, lower back. Historical: - Allergies: 21:52 NKDA; hm5 - PMHx: 21:52 Chronic obstructive lung disease; Hypertension; Myocardial infarction; Seizures; 5 vascular disease (Right toes amputati); - PSHx: 21:52 cardiac stents; Left Leg Amputation (below the knee); Right toes amputation; 5 - Immunization history:: Adult Immunizations up to date. - Infectious Disease History:: Denies. - Social history:: Smoking status: Patient reports the use of cigarette tobacco products, Patient uses alcohol, but reports only rare drinking. Patient/guardian denies using street drugs, IV drugs. - Family history:: not pertinent. Screenin:06 [facility] ED Fall Risk Assessment (Adult) History of falling in the last 3 months, [facility] including since admission No falls in past 3 months (0 pts) Confusion or Disorientation No (0 pts) Intoxicated or Sedated No (0 pts) Impaired Gait Yes (1 pt) Mobility Assist Device Used Yes (1 pt) Altered Elimination No (0 pt) Score/Fall Risk Level 0 - 2 = Low Risk. Abuse screen: Denies threats or abuse. Denies injuries from another. Nutritional screening: No deficits noted. Tuberculosis screening: No symptoms or risk factors identified. Assessment: 21:58 General: patient sts he wishes to wait outside to be called back to see MD/get a bed.. [facility] 23:41 General: Appears in no apparent distress. uncomfortable, unkempt, Behavior is calm, lg3 cooperative. Pain: Complains of pain in right leg. Neuro: No deficits noted. Pérez Agitation-Sedation Scale (RASS): 0 - Alert and Calm Level of Consciousness is awake, alert, obeys commands, Oriented to person, place, time, situation. Cardiovascular: No deficits noted. Denies chest pain, shortness of breath, Capillary refill < 3 seconds Clubbing of nail beds is absent JVD is absent Patient's skin is warm and dry. Respiratory: No deficits noted. Airway is patent Respiratory effort is even, unlabored, Respiratory pattern is regular, symmetrical. GI: No deficits noted. No signs and/or symptoms were reported involving the gastrointestinal system. Abdomen is round non-distended. : No signs and/or symptoms were reported regarding the genitourinary system. EENT: No deficits noted. No signs and/or symptoms were reported regarding the EENT system. Derm: Wound noted face, back, right arm, left arm, right leg and left leg. Musculoskeletal: Amputation of left BKA, right partial foot. Reports pain in right leg and left leg. 02/02 01:05 Reassessment: Patient appears in no apparent distress at this time. No changes from lg3 previously documented assessment. Patient and/or family updated on plan of care and expected duration. Pain level reassessed. Patient is alert, oriented x 3, equal unlabored respirations, skin warm/dry/pink. Patient states feeling better. Patient states symptoms have improved. 02:08 Reassessment: Patient appears in no apparent distress at this time. No changes from lg3 previously documented assessment. Patient and/or family updated on plan of care and expected duration. Pain level reassessed. Patient is alert, oriented x 3, equal unlabored respirations, skin warm/dry/pink. Patient states feeling better. Patient states symptoms have improved. Vital Signs: 02/01 21:49 BP 117 / 68; Pulse 98; Resp 19; Temp 98.1(O); Pulse Ox 100% on R/A; Weight 104.33 kg; 5 Height 6 ft. 1 in. ; Pain 10/10; 23:41 BP 149 / 63; Pulse 88; Resp 16 S; Pulse Ox 97% on R/A; lg3 02/02 01:06 BP 147 / 84; Pulse 87; Resp 16 S; Pulse Ox 100% on R/A; lg3 02:08 BP 119 / 57; Pulse 80; Resp 16 S; Pulse Ox 99% on R/A; lg3 05:00 BP 124 / 62; Pulse 84; Resp 16; Pulse Ox 99% ; cp4 02/01 21:49 Body Mass Index 30.34 (104.33 kg, 185.42 cm) [facility] 02/01 21:49 Pain Scale: Adult [facility] ED Course: 02/01 21:39 Patient arrived in ED. am2 21:52 Triage completed. [facility] 22:06 Aaron Pichardo MD is Attending Physician. riya 22:06 Arm band placed on left wrist. hm5 22:06 No provider procedures requiring assistance completed. hm5 22:07 Patient has correct armband on for positive identification. Provided Education on: plan hm5 of care and necessity to stay in [facility] to be seen by MD/to complete orders/be called back to bed. pt verbalized understanding and sts he wants to wait outside. pt in wheelchair.. 23:08 XRAY Chest (1 view) In Process Unspecified. EDMS 23:16 Inserted saline lock: 20 gauge in left forearm, using aseptic technique. Blood lg3 collected. Flushed with 10 mL NS. 23:23 Initial lab(s) drawn, by me, sent to lab. sa1 23:24 Basic Metabolic Panel Sent. sa1 23:24 CBC with Diff Sent. sa1 23:24 NT PRO-BNP Sent. sa1 23:24 PT-INR Sent. sa1 23:24 Troponin HS Sent. sa1 23:25 LFT's Sent. sa1 23:25 Lipase Sent. sa1 23:41 Client placed on continuous cardiac and pulse oximetry monitoring. NIBP monitoring lg3 applied. instructor business education on. Door closed. Noise minimized. Warm blanket given. Pillow given. 23:46 Lucille Rod, RN is Primary Nurse. lg3 02/02 00:03 Foot Right 3 View XRAY In Process Unspecified. EDMS 00:34 Fili Ramirez MD is Hospitalizing Provider. riya 00:44 Head C Spine Mpr Wo Con In Process Unspecified. EDMS 00:44 Chest Abd Pelvis Wo Con In Process Unspecified. EDMS 01:05 Wound care: to decubitus located on right leg was cleaned with soap and water, dressed lg3 with 4X4s, Kerlix, vashe. 05:12 Cleaned of incontinence. Linen changed. cp4 05:14 Patient admitted, IV remains in place. cp4 Administered Medications: 02/01 23:40 Drug: HYDROmorphone IVP 1 mg IVP once Route: IVP; Site: left forearm; lg3 02/02 01:04 Follow up: Response: No adverse reaction; Marked relief of symptoms [facility] 02/01 23:40 Drug: Ondansetron IVP 8 mg IVP once; over 2 minutes Route: IVP; Site: left forearm; lg3 02/02 01:04 Follow up: Response: No adverse reaction; Marked relief of symptoms [facility] 02/01 23:40 Drug: Ativan IVP 1 mg IVP once Route: IVP; Site: left forearm; 3 02/02 01:04 Follow up: Response: No adverse reaction; Marked relief of symptoms; RASS: Drowsy (-1) [facility] 02/01 23:40 Drug: Piperacillin-Tazobactam IVPB 3.375 grams IVPB once over 60 mins; (mix in NS 100 lg3 mL) Route: IVPB; Infused Over: 60 mins; Site: left forearm; 02/02 01:04 Follow up: Response: No adverse reaction; IV Status: Completed infusion; IV Intake: lg3 100ml 02/01 23:41 Drug: NS 0.9% IV 500 ml 500 ml IV at 1 bolus once; to be given as a bolus over 30 lg3 minutes Volume: 500 ml; Route: IV; Rate: 1 bolus; Site: left forearm; 02/02 01:04 Follow up: Response: No adverse reaction; IV Status: Completed infusion; IV Intake: lg3 500ml 00:47 Drug: Fosphenytoin IVPB 1 grams IVPB once; (mix in 50 to 100mL NS) Route: IVPB; Site: lg3 left forearm; 01:05 Follow up: Response: No adverse reaction; IV Status: Completed infusion; IV Intake: [id number] 01:08 Not Given (Physician Discretion): ativan1 mg IVP once lg3 Medication: 02/01 22:06 VIS not applicable for this client. hm5 Intake: 02/02 01:04 IV: 500ml; Total: 500ml. lg3 01:04 IV: 100ml; Total: 600ml. lg3 01:05 IV: 50ml; Total: 650ml. lg3 Outcome: 00:37 Decision to Hospitalize by Provider. riya 05:14 Admitted to Med/surg accompanied by tech, via wheelchair, cp4 05:14 Condition: stable 05:14 Instructed on the need for admit, Demonstrated understanding of instructions, 05:14 Patient left the ED. cp4 Signatures: Dispatcher [employer] EDTX Aaron Pichardo MD MD cha Moreno, Amanda am2 Lucille Rod RN RN lg3 Petra Crouch cp4 Sultan Francisco J 1 Latia Rose, RN RN hm5 Corrections: (The following items were deleted from the chart) 02/01 23:40 23:16 Inserted saline lock: 20 gauge in right forearm, using aseptic technique. Blood lg3 collected. Flushed with 10 mL NS sa1
--- NOTE | 2025-02-02 01:34 | RAD REPORT ---
Clinical Indication: Bed Name: 8; PAIN Comparison: September 09, 2024 TECHNIQUE: CT images were obtained from the foramen magnum to the vertex without the use of intraveno us contrast on a multidetector CT. Coronal and sagittal reformats were performed and provided as separate series. All CT scans at this location are performed using dose optimization techniques as appropriate to perf orm the study. Radiation dose reduction technique was utilized including one or more of the following: Automated exp osure control, adjustment of the mA and/or kV according to patient size and use of iterative reconstruction technique. CT Radiation Dose DLP 1308 mGy-cm FINDINGS: BRAIN PARENCHYMA: There is generalized brain parenchymal atrophy related to the patient's age. Modera te nonspecific periventricular white matter disease changes are noted. There are no focal mass lesions on this noncontrast head CT. There is no mass effect, midline shift or edema. There are no in tra-axial or extra-axial fluid collections, intraventricular or intraparenchymal hemorrhage. There is no noncontrast CT evidence of a subacute stroke. The pineal, sellar, brainstem, cerebellum and sku ll base regions appear unremarkable. VENTRICLES: The lateral ventricles, third and fourth ventricles appear unremarkable. The basilar cist erns are normal. ORBITS, MASTOIDS AND PARANASAL SINUSES: The visualized orbits and paranasal sinuses are unremarkable. The mastoid air cells are clear. SKULL: There are no calvarial abnormalities seen. If there is further concern for intracranial pathology or acute stroke, MRI of the brain may be perfo rmed for complete assessment. IMPRESSION: 1. No acute intracranial abnormality is noted. 2. Chronic small vessel ischemic changes in the periventricular white matter. Clinical Indication: Bed Name: 8; PAIN Comparison: None Technique: Multi-detector CT imaging of the cervical spine is performed. Coronal and sagittal reconst ructions were performed and provided as separate series. All CT scans at this location are performed using dose optimization techniques as appropriate to perf orm the study. Radiation dose reduction technique was utilized including one or more of the following: Automated exp osure control, adjustment of the mA and/or kV according to patient size and use of iterative reconstruction technique. CT Radiation Dose DLP 256.6 mGy-cm FINDINGS: ALIGNMENT AND GENERAL ASSESSMENT: There is normal alignment of the cervical spine. There are no acute fractures or subluxations. The craniocervical junction is normal. The atlanto-dental alignment appears unremarkable. The posterior elements and spinous processes are unremarkable. The facet joint, spinolaminar and spinous process alignment are normal. DISK SPACES AND SOFT TISSUES: The prevertebral soft tissues are normal. There are multilevel degenerative changes throughout the cervical spine with anterior and posterior osteophytes, disk bulges as well as bilateral uncovertebral and facet hypertrophy. There is no osseous spinal or foraminal stenosis. MRI is the gold standard to assess for disk disease. VISUALIZED LUNG APICES: Unremarkable. CT myelogram or MRI of the cervical spine may be performed, if there is further concern. IMPRESSION: Degenerative changes within the cervical spine without acute fractures or subluxations. Electronically signed by: Gus Cooney MD 02/02/2025 01:20 AM CDT RP Due to temporary technical issues with the PACS/[employer] reporting system, reports are being nydia d by the in-house radiologist without review as a courtesy to ensure prompt reporting the interpreting radiologist is fully responsible for the content of the report. Transcribed Date/Time: 02/02/2025 1:34 AM
--- NOTE | 2025-02-02 02:06 | RAD REPORT ---
Clinical Indication: ; PAIN Comparison: September 09, 2024 TECHNIQUE: Sequential trans-axial images were obtained through the chest, abdomen and pelvis without iodinated contrast or oral contrast. Coronal and sagittal reconstructions were obtained and provided as separate series. All CT scans at this location are performed using dose optimization techniques as appropriate to perf orm the study. Radiation dose reduction technique was utilized including one or more of the following: Automated exp osure control, adjustment of the mA and/or kV according to patient size and use of iterative reconstruction technique. CT Radiation Dose DLP 2854 mGy-cm FINDINGS: CT CHEST: LUNG PARENCHYMA AND PLEURA: No pulmonary opacities are noted. . There are no lung nodules. There is n o significant interstitial lung disease. There are no pleural effusions. There is no pneumothorax. AIRWAY: The central airway is patent MEDIASTINUM: No mediastinal lymphadenopathy is noted. HEART: The heart is normal in size.. There is no pericardial effusion. VASCULAR STRUCTURES: The pulmonary arteries and great vessels are normal in caliber. The thoracic a allyson is normal in caliber. The superior vena cava is unremarkable. OSSEOUS STRUCTURES: There are no acute osseous abnormalities seen. No sternal fractures are noted. No thoracic spine fractures are seen. No rib fractures are noted. Study is slightly degraded due to motion artifact. ESOPHAGUS: No gross abnormalities. CT ABDOMEN/PELVIS: NON-CONTRAST ENHANCED SOLID ORGANS: LIVER: Unremarkable. GALLBLADDER: Small calcified stones are noted in the dependent neck of the gallbladder. No surroundin g inflammatory changes are noted. INTRAHEPATIC BILE DUCT AND EXTRAHEPATIC BILE DUCT: Unremarkable. PANCREAS: Unremarkable. SPLEEN: Unremarkable. ADRENALS: Unremarkable. KIDNEYS: The renal contours are normal. There is no hydronephrosis. No calcified renal stones a re noted. No surrounding fat stranding is noted. Extensive vascular calcifications are noted within the renal arteries. No definite renal stones are noted. STOMACH: Evaluation of the stomach and bowel is limited due to lack of oral contrast. No gross abno rmalities of the stomach are noted. BOWEL: The non-contrast opacified small bowel loops in the abdomen and pelvis appear unremarkable. Th e noncontrast opacified colonic loops in the abdomen and pelvis appear unremarkable. APPENDIX: The appendix is normal in caliber without surrounding inflammatory changes. PERITONEUM AND RETROPERITONEUM: No ascites or free air. No loculated fluid collection noted. The abdo amelia aorta is normal in caliber. Moderate atherosclerotic disease is noted in the aortoiliac vessels. LYMPH NODES: Unremarkable. PELVIS: No pelvic mass or adenopathy. . The prostate is unremarkable. BLADDER: The urinary bladder is moderately distended. OSSEOUS STRUCTURES: No acute abnormality seen. Degenerative changes are noted in the thoracolumbar sp ine. SOFT TISSUES: Unremarkable. IMPRESSION: 1. Chest CT without contrast within normal limits. 2. No acute abnormality seen on the non-contrast abdomen and pelvis CT. 3. Cholelithiasis without CT evidence of acute cholecystitis. Electronically signed by: Gus Cooney MD 02/02/2025 01:37 AM CDT RP Due to temporary technical issues with the PACS/[employer] reporting system, reports are being nydia d by the in-house radiologist without review as a courtesy to ensure prompt reporting the interpreting radiologist is fully responsible for the content of the report. Transcribed Date/Time: 02/02/2025 2:05 AM
[2025-02-02] MEDS ORDERED: ONDANSETRON 4 MG/2 ML VIAL IV PRN (03:31)
[2025-02-02] MEDS ORDERED: FLUMAZENIL 0.1 MG/ML (5 mL VIAL) IV PRN (03:31)
[2025-02-02] MEDS ORDERED: VANCOMYCIN 1 GM in NA CHLORIDE 0.9% 250 ML IVPB SCH (04:00)
--- NOTE | 2025-02-02 04:38 | P.HP ---
Certification for Inpatient With expected LOS: >2 Midnights Patient will require the following post-hospital care: [facility] Practitioner: I am a practitioner with admitting privileges, knowledge of patient current condition, hospital course, and medical plan of care. Services: Services provided to patient in accordance with Admission requirements found in Title 42 Section 412.3 of the Code of Federal Regulations <Kyrie Mosley - Last Filed: 02/02/25 04:32> Patient History Date of Service: 02/02/25 Reason for admission: Lower extremity wound/osteomyelitis History of Present Illness: Patient is a 59-year-old male with past medical history of PVD, CAD, CHF, diabetes type 2, COPD, Left BKA, right lower extremity cellulitis/osteomyelitis and toe amputation, and seizures who reports to the ED with increased pain to the right lower extremity x 1 day. Patient appears to be a poor historian during evaluation after receiving IV Ativan in the ED. Patient is s/p RLE debridement with on 01/08. Patient smelled of alcohol and appeared to be unkept with saturated wound dressings upon arrival to the ED. ED workup included head/spine CT with no acute abnormality, CT abd/pelvis Cholelithiasis without CT evidence of acute cholecystitis, sodium 133, creatinine 1.95, BNP 1291, and lipase 149. Patient received IV fluids, Ativan and Zosyn while in the ED and is now being admitted to medicine service for the possible need for repeat debridement at this time. Home medications list reviewed: Yes - Past Medical/Surgical History Diabetic: No -: HTN -: CHF, diastolic dysfunction -: COPD -: CAD -: PVD -: Left & right partial foot amputation -: History of osteomyelitis -: History of drug use -: Alcohol abuse -: Tobacco abuse -: GERD -: seizures -: Rt great toe & 2nd toe amputated-Dec 2015 -: Left partial foot amputation-January 2019 -: right partial foot amputation Psychosocial/ Personal History: Was previously staying at home in [place], reportedly recently evicted - Family History Father -: Cancer Mother -: Cancer - Social History Smoking Status: Current every day smoker Alcohol use: Yes CD- Drugs: No Caffeine use: Yes <Kyrie Mosley - Last Filed: 02/02/25 04:32> Date of Service: 02/02/25 <JoseInocencio - Last Filed: 02/02/25 07:11> Date of Service: 02/02/25 <Fili Ramirez - Last Filed: 02/15/25 23:07> Allergies No Known Allergies Allergy (Verified 11/17/23 03:52) Home Medications: Escitalopram Oxalate 20 mg PO DAILY #30 tab 01/21/24 levETIRAcetam [Keppra*] 1,500 mg PO BID 04/16/24 Clopidogrel Bisulfate [Plavix] 75 mg PO DAILY #30 tab 08/26/24 Buspirone HCl 1 tab PO DAILY 12/30/24 Gabapentin [Neurontin*] 200 mg PO DAILY 12/30/24 Lisinopril [Zestril] 1 tab PO DAILY 12/30/24 carvediloL [Carvedilol] 6.25 mg PO DAILY 12/30/24 traMADol HCL [Ultram*] 1 tab PO Q6HR PRN 12/30/24 Benzonatate 100 mg PO Q8HR PRN 01/07/25 Lovastatin 20 mg PO BEDTIME 01/07/25 Metformin HCl 500 mg PO BID 01/07/25 PHENYTOIN ER Cap [Dilantin ER Cap*] 400 mg PO DAILY 01/07/25 Sertraline [Zoloft*] 100 mg PO DAILY 01/07/25 Vancomycin/0.9 % Sod Chloride [Vanco 2 Gram/500 ml-0.9% NaCl] 2 gm IV DAILY #35 bag 01/16/25 Review of Systems General: Weakness Musculoskeletal: Leg Pain Integumentary: Bruising, Other (Multiple chronic wounds) <Kyrie Mosley - Last Filed: 02/02/25 04:32> Physical Examination - Physical Exam General: Oriented x2, Disheveled, Confused HEENT: Atraumatic, PERRLA, Mucous membr. moist/pink Neck: Supple, 2+ carotid pulse no bruit, No LAD Respiratory: Clear to auscultation bilaterally, Normal air movement Cardiovascular: Regular rate/rhythm, Normal S1 S2 Capillary refill: <2 Seconds Gastrointestinal: Normal bowel sounds, No tenderness Musculoskeletal: Tenderness, Warmth, Other (Left BKA, lower extremity wound/ne crosis) Integumentary: No rashes, Skin breakdown, Tenderness/swelling, Erythema, Warmth, Diabetic ulcer, Venous stasis ulcer Neurological: Normal speech, Normal strength at 5/5 x4 extr, Normal tone, Abnormal affect Lymphatics: No axilla or inguinal lymphadenopathy - Studies Laboratory Data (last 24 hrs) 02/01/25 02/01/25 02/01/25 23:16 23:16 23:16 WBC 14.70 H Hgb 10.5 L Hct 31.4 L Plt Count 327 PT 14.6 H INR 1.30 Sodium 133 L Potassium 3.5 BUN 43 H Creatinine 1.95 H Glucose 90 Magnesium 2.4 Total Bilirubin 0.2 AST 39 H ALT 66 H Alkaline Phosphatase 83 Lipase 149 H <Kyrie Mosley - Last Filed: 02/02/25 04:32> - Studies Laboratory Data (last 24 hrs) 02/01/25 02/01/25 02/01/25 23:16 23:16 23:16 WBC 14.70 H Hgb 10.5 L Hct 31.4 L Plt Count 327 PT 14.6 H INR 1.30 Sodium 133 L Potassium 3.5 BUN 43 H Creatinine 1.95 H Glucose 90 Magnesium 2.4 Total Bilirubin 0.2 AST 39 H ALT 66 H Alkaline Phosphatase 83 Lipase 149 H <Inocencio Garcia - Last Filed: 02/02/25 07:11> Assessment and Plan - Plan Left Lower Extremity Osteomyelitis - S/p debridement 01/[address] Lay - Previous chart review/admit shows patient was on vancomycin - Zosyn/vancomycin for now, de-escalate when appropriate - Wound care consult needed - WBC 14.7, CRP ordered - Consult placed to Dr. Lay, follow-up needed in morning - Received pain control IV Dilaudid while in ED - Consider infectious disease consult - CM/SW consult needed for possible placement C/F Alcohol Abuse Elevated LFTs, mild - CIWA protocol - Multivitamin, thiamine, folic acid - NS IV fluids received in the ED - Received one-time dose of IV Ativan while in ED - AST 39, ALT 66, Lipase 149 - CT abd/pelvis showed Cholelithiasis without CT evidence of acute cholecystitis - Continue IV fluids NS @100mL/hr for now Renal insufficiency - Most likely secondary to dehydration - Creatinine 1.95 - Continue IV fluids for now - Continue to monitor renal function - Renal/pharmacy dose Vancomycin History of seizure - Continue home medication once verified - Dilantin level ordered in ED; 1.9 - Consider EEG/neuro consult if suspected seizure - Seizure precautions History of diabetes type 2 - Blood glucose monitoring ACHS - A1c ordered - Insulin sliding scale, mild - Carb controlled diet Hx of CHF Hx of CAD - Continue home meds when appropriate and verified - Monitor for fluid overload - Cardiac diet Hx of COPD - Satting well on room air - Continue to monitor respiratory status - Continue home meds once verified DVT Ppx: Heparin Code Status: Full Code Discharge Plan: Retirement Plan to discharge in: 72 Hours - Advance Directives Does patient have a Living Will: No Does patient have a Durable POA for Healthcare: No - Code Status/Comfort Care Code Status Assessed: Yes (Full code) Critical Care: No Time Spent Managing Pts Care (In Minutes): 37 <Kyrie Mosley - Last Filed: 02/02/25 04:32> Physician Review: Patient Assessed, Agree with Above Assessment and Plan <Inocencio Garcia - Last Filed: 02/02/25 07:11> Date of Service: 02/02/25 Patient was seen and examined. Events of the last 24 hours have been noted. Spoke with with CHARO regarding patient's clinical picture after evaluating and examining the patient independently. I performed a substantial part of the MDM during this patient's care today. I personally made or approved the documented management plan and acknowledge its risk of complications. I agree with the findings and documentation provided in the CHARO's notes. <Fili Ramirez - Last Filed: 02/15/25 23:07>
[2025-02-02] MEDS: VANCOMYCIN 1 GM/VIAL ONE (05:21)
[2025-02-02] MEDS: NA CHLORIDE 0.9% 500 ML ONE (05:23)
--- NOTE | 2025-02-02 05:37 | RAD REPORT ---
Clinical Indication: Bed Name: 8; PAIN Comparison: None FINDINGS: Right foot 3 views The 3 views of the right foot show amputation to the level of the tarsals. Soft tissue defect is note d distally and could be consistent with ulceration along the lateral aspect of the stump. Heterogeneous sclerosing of the talus, calcaneus and tarsal bones is noted. No definite bony erosion or resorption is seen. No gas densities are noted within the soft tissues. Mild soft tissue swelling is noted. If there is further concern, recommend follow-up radiographs, CT or MRI for complete assessment. IMPRESSION: 1. No acute radiographic abnormality of the right foot. 2. Soft tissue defect extending down to the level of the lateral tarsals. Correlation for osteomyelit is may be helpful. 3. No gas densities noted in the soft tissues. Electronically signed by: Gus Cooney MD 02/02/2025 12:57 AM CDT Due to temporary technical issues with the PACS/[employer] reporting system, reports are being nydia d by the in-house radiologist without review as a courtesy to ensure prompt reporting the interpreting radiologist is fully responsible for the content of the report. Transcribed Date/Time: 02/02/2025 5:37 AM
--- NOTE | 2025-02-02 05:37 | RAD REPORT ---
INDICATION: COUGH COMPARISON: Chest radiograph July 11, 2024 FINDINGS: Two frontal views of the chest were obtained. SUPPORT DEVICES: None HEART/MEDIASTINUM: Cardiomediastinal contours are normal. LUNGS/PLEURA: Small right pleural effusion with right basilar opacity. Upper lungs are clear. No pneu mothorax. OTHER: No other significant findings. IMPRESSION: Small right pleural effusion with right basilar atelectasis versus airspace disease. Electronically signed by: Shaggy Monte DO 02/01/2025 11:55 PM CDT NR Due to temporary technical issues with the PACS/[employer] reporting system, reports are being nydia d by the in-house radiologist without review as a courtesy to ensure prompt reporting the interpreting radiologist is fully responsible for the content of the report. Transcribed Date/Time: 02/02/2025 5:36 AM
[2025-02-02] MEDS: NA CHLORIDE 0.9% 1,000 ML IV SCH (06:17)
[2025-02-02] MEDS: VANCOMYCIN 2 GM in NA CHLORIDE 0.9% 500 ML IVPB SCH (06:18)
[2025-02-02] MEDS: INSULIN LISPRO 100 UNIT/1 ML SQ SCH (07:30)
[2025-02-02] MEDS: ACETAMINOPHEN 500 MG TAB PO PRN (08:37)
[2025-02-02] MEDS: FOLIC ACID 1 MG TABLET PO SCH (08:38)
[2025-02-02] MEDS: MULTIVITAMIN TAB PO SCH (08:38)
[2025-02-02] MEDS: THIAMINE HCL 100 MG TABLET PO SCH (08:38)
[2025-02-02] MEDS: PIPER TAZO 3.375 GM in NA CHLORIDE 0.9% 100 ML IV SCH (08:38)
[2025-02-02] MEDS: HEPARIN 5000 UNIT/ML 1 ML VIAL SQ SCH (08:41)
[2025-02-02] MEDS ORDERED: PIPER TAZO 3.375 GM in NA CHLORIDE 0.9% 100 ML IV SCH (09:00)
[2025-02-03 04:46] LABS: Absolute Lymphocytes (CBC) 2.2 K/uL (0.7-4.9); Hematocrit 27.9 % (39.6-49.0); Hemoglobin 9.3 g/dL (13.6-17.9); MCH 30.4 pg (27.0-35.0); MCHC 33.3 g/dL (32.0-36.0); MCV 91.4 fL (80-100); MPV 6.9 fL (7.6-11.3); Nucleated RBC Absolute Count 0.0 (0-0); Nucleated Red Blood Cells % 0.0 % (0-0); RBC Red Blood Cell Count 3.05 M/uL (4.33-5.43); White Blood Count 9.90 thou/uL (4.3-10.9)
[2025-02-03] MEDS: VANCOMYCIN 2 GM in NA CHLORIDE 0.9% 500 ML IVPB SCH (05:00)
[2025-02-03 05:02] LABS: Anion Gap 9.2 mEq/L (5.0-15.0); BUN Blood Urea Nitrogen 28.0 mg/dL (7-18); Glucose Level 100.0 mg/dL (74-106); Potassium 4.2 mEq/L (3.5-5.1)
[2025-02-03] MEDS: HYDROMORPHONE HCL 1 MG/ML INJ IV PRN (11:44)
[2025-02-03] MEDS: COLLAGENASE 30 GM OINTMENT TOP SCH (14:30)
--- NOTE | 2025-02-03 14:49 | P.PN ---
Date of Service: 02/03/25 Subjective: Endorses pain. Overall he states he feels slightly better. Denies fevers and chills Review of Systems General: Weakness Musculoskeletal: Leg Pain Integumentary: Bruising, Other (Multiple chronic wounds) Physical Examination - Physical Exam General: Oriented x2, Disheveled, Confused HEENT: Atraumatic, PERRLA, Mucous membr. moist/pink Neck: Supple, 2+ carotid pulse no bruit, No LAD Respiratory: Clear to auscultation bilaterally, Normal air movement Cardiovascular: Regular rate/rhythm, Normal S1 S2 Capillary refill: <2 Seconds Gastrointestinal: Normal bowel sounds, No tenderness Musculoskeletal: Tenderness, Warmth, Other (Left BKA, lower extremity wound/necrosis) Integumentary: No rashes, Skin breakdown, Tenderness/swelling, Erythema, Warmth, Diabetic ulcer, Venous stasis ulcer Neurological: Normal speech, Normal strength at 5/5 x4 extr, Normal tone, Abnormal affect Lymphatics: No axilla or inguinal lymphadenopathy - Studies Laboratory Data (last 24 hrs) 02/01/25 02/01/25 02/01/25 23:16 23:16 23:16 WBC 14.70 H Hgb 10.5 L Hct 31.4 L Plt Count 327 PT 14.6 H INR 1.30 Sodium 133 L Potassium 3.5 BUN 43 H Creatinine 1.95 H Glucose 90 Magnesium 2.4 Total Bilirubin 0.2 AST 39 H ALT 66 H Alkaline Phosphatase 83 Lipase 149 H - Studies Laboratory Data (last 24 hrs) 02/01/25 02/01/25 02/01/25 23:16 23:16 23:16 WBC 14.70 H Hgb 10.5 L Hct 31.4 L Plt Count 327 PT 14.6 H INR 1.30 Sodium 133 L Potassium 3.5 BUN 43 H Creatinine 1.95 H Glucose 90 Magnesium 2.4 Total Bilirubin 0.2 AST 39 H ALT 66 H Alkaline Phosphatase 83 Lipase 149 H Assessment and Plan - Plan Left Lower Extremity Osteomyelitis - S/p debridement 01/[address] Lay - Possible right BKA later this admission, however patient declined this last admission - Continue Zosyn and vancomycin - Wound care consult needed - WBC 14.7, CRP ordered - Consult placed to Dr. Lay, follow-up needed in morning - Awaiting infectious disease recommendations - Add Dilaudid 1 mg and [place] for pain control C/F Alcohol Abuse Elevated LFTs, mild - CIWA protocol - Multivitamin, thiamine, folic acid - NS IV fluids received in the ED - Received one-time dose of IV Ativan while in ED - AST 39, ALT 66, Lipase 149 - CT abd/pelvis showed Cholelithiasis without CT evidence of acute cholecystitis - Continue IV fluids NS @100mL/hr for now Renal insufficiency - Creatinine improving - Continue IV fluids for now - Continue to monitor renal function - Renal/pharmacy dose Vancomycin History of seizure - Continue home medication once verified - Dilantin level ordered in ED; 1.9 - Consider EEG/neuro consult if suspected seizure - Seizure precautions History of diabetes type 2 - Blood glucose monitoring ACHS - A1c ordered - Insulin sliding scale, mild - Carb controlled diet Hx of CHF Hx of CAD - Continue home meds when appropriate and verified - Monitor for fluid overload - Cardiac diet Hx of COPD - Satting well on room air - Continue to monitor respiratory status - Continue home meds once verified DVT Ppx: Heparin Code Status: Full Code Discharge Plan: Long Term Plan to discharge in: 72 Hours - Advance Directives Does patient have a Living Will: No Does patient have a Durable POA for Healthcare: No
[2025-02-03] MEDS: HYDROCODONE/APAP 7.5/325 MG TAB PO PRN (22:18)
--- NOTE | 2025-02-03 23:35 | CON ---
History Of Present Illness: This is a known patient to me from previous multiple admissions. The pa tient coming in with left lower extremity osteomyelitis and cellulitis. The patient is currently dmitry ng treated with vancomycin and Zosyn. He has history of MRSA infection in the past, peripheral vascu lar disease, coronary artery disease, congestive heart failure, diabetes mellitus, COPD with left BKA . The patient feels slightly better today. Denies any other problems. Tolerating antibiotic withou t any problem. Past Medical History: Hypertension, CHF, COPD, coronary artery disease, peripheral vascular disease, left and right partial foot amputation, history of osteomyelitis, history of drug use, alcohol abuse and tobacco abuse, gastroesophageal reflux disease, seizure disorder. Social History: Tobacco and alcohol positive. Family History: Noncontributory. Medications: Vancomycin and Zosyn. See MAR for other medications. Allergies: NO KNOWN DRUG ALLERGIES. Review of Systems: A 10-point review was performed. Physical Examination: General: This is a 59-year-old male, lying in bed, not in any acute cardiopulmonary distress. Vital signs: Temperature 98, pulse 82, respirations 18, blood pressure 148/64. HEENT: Unremarkable. Neck: Supple. Lungs: Basal crackles. Heart: S1, S2. Regular. Abdomen: Soft, nontender. Bowel sounds present. Extremities: Trace edema. Wounds noted. Laboratory Data: Shows WBC 9.9, hemoglobin 9.3, platelets 263. BUN 28, creatinine 1.6. Assessment And Plan: A 59-year-old male with significant past medical history of diabetes mellitus, chronic obstructive pulmonary disease, noncompliance, alcohol and tobacco abuse, peripheral vascular disease, coming in with left lower extremity osteomyelitis. 1. Leukocytosis. 2. Renal insufficiency. 3. Anemia of chronic disease. 4. Moderate protein-calorie malnourishment. 5. Prognosis guarded. Continue supportive care and wound care. Because of recurrent infection, we w ill recommend considering prior amputation. We will follow the patient as needed. Thank you Dr. Garcia for consult. NF/BLANEL Voice ID: [id number] Report ID: [id number]
[2025-02-04] MEDS: HYDROCODONE/APAP 7.5/325 MG TAB PO PRN (09:57)
[2025-02-04] MEDS ORDERED: VANCOMYCIN 1 GM in NA CHLORIDE 0.9% 250 ML IVPB SCH (12:00)
[2025-02-04] MEDS: HYDROMORPHONE HCL 2 MG/ML inj IV PRN (13:04)
--- NOTE | 2025-02-04 15:33 | P.PN ---
Date of Service: 02/04/25 subjective: pt report no cproblem with abx. WBC WNL, No fever/chill. denied NVD. surgeon recommended amputation to RLE but pt is still considering doing abx first. objective: Temp Pulse Resp BP Pulse Ox 98.3 F 86 18 131/62 97 02/04/25 12:00 02/04/25 12:00 02/04/25 12:00 02/04/25 12:00 02/04/25 12:00 - Physical Exam General: Oriented x2 HEENT: Atraumatic, PERRLA, Neck: Supple Respiratory: Clear to auscultation bilaterally Cardiovascular:RRR Gastrointestinal: Normal bowel sounds, No tenderness, ND Integumentary: RLE wounds, left BKA labs: wbc 9.9, hgb 9.3, bun 28, cr 1.60, albumin 2.4 assessment and planning Right foot stump infection with OM anemia of chronic disease renal insufficiency alcohol and tobacco abuse DM2 moderate protein calorie malnourishment patient was explained that amputation is needed but patient is still contemplating and want to try abx first continue wound care per surgeon order continue zosyn and vancomycin will continue to see patient as needed case discussed and in agreement with Dr Conroy
--- NOTE | 2025-02-04 16:26 | P.PN ---
Date of Service: 02/04/25 Subjective: Continues to endorse extreme pain. I explained to him the amputation is one of his last options. Possible BKA on Sunday. He denies fevers and chills Review of Systems General: Weakness Musculoskeletal: Leg Pain Integumentary: Bruising, Other (Multiple chronic wounds) Physical Examination - Physical Exam General: Oriented x2, Disheveled, Confused HEENT: Atraumatic, PERRLA, Mucous membr. moist/pink Neck: Supple, 2+ carotid pulse no bruit, No LAD Respiratory: Clear to auscultation bilaterally, Normal air movement Cardiovascular: Regular rate/rhythm, Normal S1 S2 Capillary refill: <2 Seconds Gastrointestinal: Normal bowel sounds, No tenderness Musculoskeletal: Tenderness, Warmth, Other (Left BKA, lower extremity wound/necrosis) Integumentary: No rashes, Skin breakdown, Tenderness/swelling, Erythema, Warmth, Diabetic ulcer, Venous stasis ulcer Neurological: Normal speech, Normal strength at 5/5 x4 extr, Normal tone, Abnormal affect Lymphatics: No axilla or inguinal lymphadenopathy - Studies Laboratory Data (last 24 hrs) 02/01/25 02/01/25 02/01/25 23:16 23:16 23:16 WBC 14.70 H Hgb 10.5 L Hct 31.4 L Plt Count 327 PT 14.6 H INR 1.30 Sodium 133 L Potassium 3.5 BUN 43 H Creatinine 1.95 H Glucose 90 Magnesium 2.4 Total Bilirubin 0.2 AST 39 H ALT 66 H Alkaline Phosphatase 83 Lipase 149 H - Studies Laboratory Data (last 24 hrs) 02/01/25 02/01/25 02/01/25 23:16 23:16 23:16 WBC 14.70 H Hgb 10.5 L Hct 31.4 L Plt Count 327 PT 14.6 H INR 1.30 Sodium 133 L Potassium 3.5 BUN 43 H Creatinine 1.95 H Glucose 90 Magnesium 2.4 Total Bilirubin 0.2 AST 39 H ALT 66 H Alkaline Phosphatase 83 Lipase 149 H Assessment and Plan - Plan Left Lower Extremity Osteomyelitis - S/p debridement 01/[address] Lay - Possible right BKA later this admission, possibly this Sunday - Continue Zosyn and vancomycin - Wound care consult needed - WBC 14.7, CRP ordered - Consult placed to Dr. Lay, follow-up needed in morning - Awaiting infectious disease recommendations - Add Dilaudid 1 mg and [place] for pain control C/F Alcohol Abuse Elevated LFTs, mild - CIWA protocol - Multivitamin, thiamine, folic acid - NS IV fluids received in the ED - Received one-time dose of IV Ativan while in ED - AST 39, ALT 66, Lipase 149 - CT abd/pelvis showed Cholelithiasis without CT evidence of acute cholecystitis - Continue IV fluids NS @100mL/hr for now Renal insufficiency - Creatinine improving - Continue IV fluids for now - Continue to monitor renal function - Renal/pharmacy dose Vancomycin History of seizure - Continue home medication once verified - Dilantin level ordered in ED; 1.9 - Consider EEG/neuro consult if suspected seizure - Seizure precautions History of diabetes type 2 - Blood glucose monitoring ACHS - A1c ordered - Insulin sliding scale, mild - Carb controlled diet Hx of CHF Hx of CAD - Continue home meds when appropriate and verified - Monitor for fluid overload - Cardiac diet Hx of COPD - Satting well on room air - Continue to monitor respiratory status - Continue home meds once verified DVT Ppx: Heparin Code Status: Full Code Discharge Plan: Senior Living Plan to discharge in: 72 Hours - Advance Directives Does patient have a Living Will: No Does patient have a Durable POA for Healthcare: No
[2025-02-04] MEDS: VANCOMYCIN 1.5 GM in NA CHLORIDE 0.9% 500 ML IVPB SCH (18:00)
[2025-02-05] MEDS: VANCOMYCIN 1.5 GM in NA CHLORIDE 0.9% 500 ML IVPB SCH (05:18)
[2025-02-05 07:32] LABS: Absolute Lymphocytes (CBC) 2.0 K/uL (0.7-4.9); Hematocrit 24.7 % (39.6-49.0); Hemoglobin 8.2 g/dL (13.6-17.9); MCH 30.6 pg (27.0-35.0); MCHC 33.1 g/dL (32.0-36.0); MCV 92.5 fL (80-100); MPV 7.9 fL (7.6-11.3); Nucleated RBC Absolute Count 0.0 (0-0); Nucleated Red Blood Cells % 0.0 % (0-0); RBC Red Blood Cell Count 2.67 M/uL (4.33-5.43); White Blood Count 6.80 thou/uL (4.3-10.9)
[2025-02-05 07:45] LABS: ALT/SGPT 28.0 U/L (16-61); AST/SGOT 18.0 U/L (15-37); Albumin 1.9 g/dL (3.4-5.0); Albumin/Globulin Ratio 0.4 (1.1-1.8); Alkaline Phosphatase 55.0 U/L (45-117); Anion Gap 9.0 mEq/L (5.0-15.0); BUN Blood Urea Nitrogen 17.0 mg/dL (7-18); Globulin 5.2 g/dL (2.3-3.5); Glucose Level 74.0 mg/dL (74-106); Potassium 4.0 mEq/L (3.5-5.1)
[2025-02-05] MEDS: DICLOFENAC SODIUM TOP ONE (09:46)
--- NOTE | 2025-02-05 16:12 | P.PN ---
Date of Service: 02/05/25 Subjective: Sleeping on arrival and easily awakened. Continues to endorse pain. We discussed due to the extreme level of pain his only option would be a right BKA. He states he would like to wait till Sunday to see if the IV antibiotics worked. Review of Systems General: Weakness Musculoskeletal: Leg Pain Integumentary: Bruising, Other (Multiple chronic wounds) Physical Examination - Physical Exam General: Oriented x2, Disheveled, Confused HEENT: Atraumatic, PERRLA, Mucous membr. moist/pink Neck: Supple, 2+ carotid pulse no bruit, No LAD Respiratory: Clear to auscultation bilaterally, Normal air movement Cardiovascular: Regular rate/rhythm, Normal S1 S2 Capillary refill: <2 Seconds Gastrointestinal: Normal bowel sounds, No tenderness Musculoskeletal: Tenderness, Warmth, Other (Left BKA, lower extremity wound/necrosis) Integumentary: No rashes, Skin breakdown, Tenderness/swelling, Erythema, Warmth, Diabetic ulcer, Venous stasis ulcer Neurological: Normal speech, Normal strength at 5/5 x4 extr, Normal tone, Abnormal affect Lymphatics: No axilla or inguinal lymphadenopathy - Studies Laboratory Data (last 24 hrs) 02/01/25 02/01/25 02/01/25 23:16 23:16 23:16 WBC 14.70 H Hgb 10.5 L Hct 31.4 L Plt Count 327 PT 14.6 H INR 1.30 Sodium 133 L Potassium 3.5 BUN 43 H Creatinine 1.95 H Glucose 90 Magnesium 2.4 Total Bilirubin 0.2 AST 39 H ALT 66 H Alkaline Phosphatase 83 Lipase 149 H - Studies Laboratory Data (last 24 hrs) 02/01/25 02/01/25 02/01/25 23:16 23:16 23:16 WBC 14.70 H Hgb 10.5 L Hct 31.4 L Plt Count 327 PT 14.6 H INR 1.30 Sodium 133 L Potassium 3.5 BUN 43 H Creatinine 1.95 H Glucose 90 Magnesium 2.4 Total Bilirubin 0.2 AST 39 H ALT 66 H Alkaline Phosphatase 83 Lipase 149 H Assessment and Plan - Plan Left Lower Extremity Osteomyelitis - S/p debridement 01/[address] Lay - Possible right BKA later this admission - Continue Zosyn and vancomycin - Leukocytosis resolved - Continue Vanco, Zosyn - Increased pain control to Dilaudid 2 mg and oxycodone extended release twice daily C/F Alcohol Abuse Elevated LFTs, mild - CIWA protocol - Multivitamin, thiamine, folic acid - NS IV fluids received in the ED - Received one-time dose of IV Ativan while in ED - AST 39, ALT 66, Lipase 149 - CT abd/pelvis showed Cholelithiasis without CT evidence of acute cholecystitis - Continue IV fluids NS @100mL/hr for now Renal insufficiency - Creatinine close to baseline - Continue to monitor renal function - Renal/pharmacy dose Vancomycin - Stop IV fluids History of seizure - Continue home medication once verified - Dilantin level ordered in ED; 1.9 - Consider EEG/neuro consult if suspected seizure - Seizure precautions History of diabetes type 2 - Blood glucose monitoring ACHS - A1c ordered - Insulin sliding scale, mild - Carb controlled diet Hx of CHF Hx of CAD - Continue home meds when appropriate and verified - Monitor for fluid overload - Cardiac diet Hx of COPD - Satting well on room air - Continue to monitor respiratory status - Continue home meds once verified DVT Ppx: Heparin Code Status: Full Code Discharge Plan: [facility] Plan to discharge in: 72 Hours - Advance Directives Does patient have a Living Will: No Does patient have a Durable POA for Healthcare: No
--- NOTE | 2025-02-05 19:31 | PN ---
Subjective: The patient is somnolent, not in any acute distress. Objective: Vital Signs: Temperature 98, pulse 73, respirations 16, blood pressure 127/59. Lungs: Basal crackles. Heart: S1, S2. Regular. Abdomen: Soft, nontender. Bowel sounds present. Extremities: Trace edema. Wounds noted. Laboratory Data: Shows WBC 6.8, hemoglobin 8.2, platelets 237. BUN 17, creatinine 1.3, albumin 1.9. Assessment And Plan: 1. Right foot stump infection with osteomyelitis. 2. Anemia of chronic disease. 3. Heavy alcohol and tobacco use. 4. Diabetes mellitus. 5. Moderate protein-calorie malnourishment. 6. Peripheral vascular disease. 7. Diabetic neuropathy. We will follow the patient as needed. Continue antibiotic and supportive care and wound care. NF/MODL Voice ID: [id number] Report ID: [id number]
[2025-02-05] MEDS: OXYCODONE *CR* 20 MG TAB PO SCH (21:18)
[2025-02-06] MEDS: VANCOMYCIN 1.5 GM in NA CHLORIDE 0.9% 500 ML IVPB SCH (05:51)
--- NOTE | 2025-02-06 14:06 | P.PN ---
Date of Service: 02/06/25 subjective: pt report no problem with abx. WBC WNL, No fever/chill. denied NVD. surgeon recommended amputation to RLE but pt is still considering doing abx first. objective: Temp Pulse Resp BP Pulse Ox 98.3 F 86 18 131/62 97 02/04/25 12:00 02/04/25 12:00 02/04/25 12:00 02/04/25 12:00 02/04/25 12:00 - Physical Exam General: Oriented x2 HEENT: Atraumatic, PERRLA, Neck: Supple Respiratory: Clear to auscultation bilaterally Cardiovascular:RRR Gastrointestinal: Normal bowel sounds, No tenderness, ND Integumentary: RLE wounds, left BKA labs: wbc 6.8, hgb 8.2, bun 17, cr 1.36, albumin 1.9 assessment and planning Right foot stump infection with OM anemia of chronic disease renal insufficiency alcohol and tobacco abuse DM2 severe protein calorie malnourishment patient was explained that amputation is needed but patient declined amputation continue wound care per surgeon order if no amputation, continue vancomycin x 6 weeks. chavo sargent. will continue to see patient as needed case discussed and in agreement with Dr Conroy
--- NOTE | 2025-02-06 14:57 | P.PN ---
Date of Service: 02/06/25 Subjective: Continues to endorse pain. We discussed having a BKA as his only option. He declines. Review of Systems General: Weakness Musculoskeletal: Leg Pain Integumentary: Bruising, Other (Multiple chronic wounds) Physical Examination - Physical Exam General: Oriented x2, Disheveled, Confused HEENT: Atraumatic, PERRLA, Mucous membr. moist/pink Neck: Supple, 2+ carotid pulse no bruit, No LAD Respiratory: Clear to auscultation bilaterally, Normal air movement Cardiovascular: Regular rate/rhythm, Normal S1 S2 Capillary refill: <2 Seconds Gastrointestinal: Normal bowel sounds, No tenderness Musculoskeletal: Tenderness, Warmth, Other (Left BKA, lower extremity wound/necrosis) Integumentary: No rashes, Skin breakdown, Tenderness/swelling, Erythema, Warmth, Diabetic ulcer, Venous stasis ulcer Neurological: Normal speech, Normal strength at 5/5 x4 extr, Normal tone, Abnormal affect Lymphatics: No axilla or inguinal lymphadenopathy - Studies Laboratory Data (last 24 hrs) 02/01/25 02/01/25 02/01/25 23:16 23:16 23:16 WBC 14.70 H Hgb 10.5 L Hct 31.4 L Plt Count 327 PT 14.6 H INR 1.30 Sodium 133 L Potassium 3.5 BUN 43 H Creatinine 1.95 H Glucose 90 Magnesium 2.4 Total Bilirubin 0.2 AST 39 H ALT 66 H Alkaline Phosphatase 83 Lipase 149 H - Studies Laboratory Data (last 24 hrs) 02/01/25 02/01/25 02/01/25 23:16 23:16 23:16 WBC 14.70 H Hgb 10.5 L Hct 31.4 L Plt Count 327 PT 14.6 H INR 1.30 Sodium 133 L Potassium 3.5 BUN 43 H Creatinine 1.95 H Glucose 90 Magnesium 2.4 Total Bilirubin 0.2 AST 39 H ALT 66 H Alkaline Phosphatase 83 Lipase 149 H Assessment and Plan 02/06 - Arrange for outpatient antibiotics, due to concern for drug use, will switch to oral medication and remove PICC line/midline - Discussed with infectious disease and general surgery Dr. Lay - Continue pain control with oxycodone and Dilaudid - Creatinine continues to improve Left Lower Extremity Osteomyelitis - S/p debridement 01/[address] Lay - Possible right BKA later this admission - Continue Zosyn and vancomycin - Leukocytosis resolved - Continue Vanco, Zosyn - Increased pain control to Dilaudid 2 mg and oxycodone extended release twice daily C/F Alcohol Abuse Elevated LFTs, mild - CIWA protocol - Multivitamin, thiamine, folic acid - NS IV fluids received in the ED - Received one-time dose of IV Ativan while in ED - AST 39, ALT 66, Lipase 149 - CT abd/pelvis showed Cholelithiasis without CT evidence of acute cholecystitis - Continue IV fluids NS @100mL/hr for now Renal insufficiency - Creatinine close to baseline - Continue to monitor renal function - Renal/pharmacy dose Vancomycin - Stop IV fluids History of seizure - Continue home medication once verified - Dilantin level ordered in ED; 1.9 - Consider EEG/neuro consult if suspected seizure - Seizure precautions History of diabetes type 2 - Blood glucose monitoring ACHS - A1c ordered - Insulin sliding scale, mild - Carb controlled diet Hx of CHF Hx of CAD - Continue home meds when appropriate and verified - Monitor for fluid overload - Cardiac diet Hx of COPD - Satting well on room air - Continue to monitor respiratory status - Continue home meds once verified DVT Ppx: Heparin Code Status: Full Code Discharge Plan: Shelter Plan to discharge in: 72 Hours - Advance Directives Does patient have a Living Will: No Does patient have a Durable POA for Healthcare: No
[2025-02-07 07:56] LABS: Absolute Lymphocytes (CBC) 1.7 K/uL (0.7-4.9); Hematocrit 24.7 % (39.6-49.0); Hemoglobin 8.3 g/dL (13.6-17.9); MCH 31.2 pg (27.0-35.0); MCHC 33.7 g/dL (32.0-36.0); MCV 92.4 fL (80-100); MPV 7.6 fL (7.6-11.3); Nucleated RBC Absolute Count 0.0 (0-0); Nucleated Red Blood Cells % 0.0 % (0-0); RBC Red Blood Cell Count 2.67 M/uL (4.33-5.43); White Blood Count 6.90 thou/uL (4.3-10.9)
[2025-02-07 08:38] LABS: Anion Gap 8.9 mEq/L (5.0-15.0); BUN Blood Urea Nitrogen 19.0 mg/dL (7-18); Glucose Level 101.0 mg/dL (74-106); Magnesium 2.2 mg/dL (1.6-2.4); Potassium 3.9 mEq/L (3.5-5.1)
--- NOTE | 2025-02-07 13:06 | PN ---
Subjective: The patient lying in bed. No new acute event. Chart reviewed. Vital signs reviewed. Denies any problems with antibiotic. Objective: Vital Signs: Temperature 98, pulse 80, respiration 12, blood pressure 139/63. Lungs: Basal crackles. Heart: S1, S2 regular. Abdomen: Soft, nontender. Bowel sounds present. Extremities: Wound noted. Lab: WBC 6.9, hemoglobin 8.3, platelets 246. BUN 19, creatinine 1.2. The patient is currently on v ancomycin. Assessment And Plan: 1. Right foot stump infection with osteomyelitis. Continue antibiotic and supportive care total of 6 weeks. 2. Diabetes mellitus and diabetic neuropathy. 3. Alcohol and tobacco abuse. 4. Severe protein-calorie malnourishment. 5. Renal insufficiency. 6. Anemia of chronic disease. 7. Monitor signs of infection with WBC and fever trends. NF/MODL Voice ID: [id number] Report ID: [id number]
--- NOTE | 2025-02-07 14:42 | P.PN ---
Date of Service: 02/07/25 Subjective: No new issues. His pain is under better control now. We discussed the need for BKA otherwise he has to go home with oral antibiotics. He understands his options. He denies fevers and chills Review of Systems General: Weakness Musculoskeletal: Leg Pain Integumentary: Bruising, Other (Multiple chronic wounds) Physical Examination - Physical Exam General: Oriented x2, Disheveled, Confused HEENT: Atraumatic, PERRLA, Mucous membr. moist/pink Neck: Supple, 2+ carotid pulse no bruit, No LAD Respiratory: Clear to auscultation bilaterally, Normal air movement Cardiovascular: Regular rate/rhythm, Normal S1 S2 Capillary refill: <2 Seconds Gastrointestinal: Normal bowel sounds, No tenderness Musculoskeletal: Tenderness, Warmth, Other (Left BKA, lower extremity wound/necrosis) Integumentary: No rashes, Skin breakdown, Tenderness/swelling, Erythema, Warmth, Diabetic ulcer, Venous stasis ulcer Neurological: Normal speech, Normal strength at 5/5 x4 extr, Normal tone, Abnormal affect Lymphatics: No axilla or inguinal lymphadenopathy - Studies Laboratory Data (last 24 hrs) 02/01/25 02/01/25 02/01/25 23:16 23:16 23:16 WBC 14.70 H Hgb 10.5 L Hct 31.4 L Plt Count 327 PT 14.6 H INR 1.30 Sodium 133 L Potassium 3.5 BUN 43 H Creatinine 1.95 H Glucose 90 Magnesium 2.4 Total Bilirubin 0.2 AST 39 H ALT 66 H Alkaline Phosphatase 83 Lipase 149 H - Studies Laboratory Data (last 24 hrs) 02/01/25 02/01/25 02/01/25 23:16 23:16 23:16 WBC 14.70 H Hgb 10.5 L Hct 31.4 L Plt Count 327 PT 14.6 H INR 1.30 Sodium 133 L Potassium 3.5 BUN 43 H Creatinine 1.95 H Glucose 90 Magnesium 2.4 Total Bilirubin 0.2 AST 39 H ALT 66 H Alkaline Phosphatase 83 Lipase 149 H Assessment and Plan 02/07 - Home with oral antibiotics for 6 weeks if he decides not to pursue BKA - He cannot leave with an IV due to concern for drug use - Discussed plan of care and options moving forward - He is now homeless 02/06 - Arrange for outpatient antibiotics, due to concern for drug use, will switch to oral medication and remove PICC line/midline - Discussed with infectious disease and general surgery Dr. Lay - Continue pain control with oxycodone and Dilaudid - Creatinine continues to improve Left Lower Extremity Osteomyelitis - S/p debridement 01/[address] Lay - Possible right BKA later this admission - Continue Zosyn and vancomycin - Leukocytosis resolved - Continue Vanco, Zosyn - Increased pain control to Dilaudid 2 mg and oxycodone extended release twice daily C/F Alcohol Abuse Elevated LFTs, mild - CIWA protocol - Multivitamin, thiamine, folic acid - NS IV fluids received in the ED - Received one-time dose of IV Ativan while in ED - AST 39, ALT 66, Lipase 149 - CT abd/pelvis showed Cholelithiasis without CT evidence of acute cholecystitis - Continue IV fluids NS @100mL/hr for now Renal insufficiency - Creatinine close to baseline - Continue to monitor renal function - Renal/pharmacy dose Vancomycin - Stop IV fluids History of seizure - Continue home medication once verified - Dilantin level ordered in ED; 1.9 - Consider EEG/neuro consult if suspected seizure - Seizure precautions History of diabetes type 2 - Blood glucose monitoring ACHS - A1c ordered - Insulin sliding scale, mild - Carb controlled diet Hx of CHF Hx of CAD - Continue home meds when appropriate and verified - Monitor for fluid overload - Cardiac diet Hx of COPD - Satting well on room air - Continue to monitor respiratory status - Continue home meds once verified DVT Ppx: Heparin Code Status: Full Code Discharge Plan: Shelter Plan to discharge in: 72 Hours - Advance Directives Does patient have a Living Will: No Does patient have a Durable POA for Healthcare: No
--- NOTE | 2025-02-08 14:44 | P.PN ---
Date of Service: 02/08/25 Subjective: He wants to have his BKA tomorrow. He states the pain is very severe. Review of Systems General: Weakness Musculoskeletal: Leg Pain Integumentary: Bruising, Other (Multiple chronic wounds) Physical Examination - Physical Exam General: Oriented x2, Disheveled, Confused HEENT: Atraumatic, PERRLA, Mucous membr. moist/pink Neck: Supple, 2+ carotid pulse no bruit, No LAD Respiratory: Clear to auscultation bilaterally, Normal air movement Cardiovascular: Regular rate/rhythm, Normal S1 S2 Capillary refill: <2 Seconds Gastrointestinal: Normal bowel sounds, No tenderness Musculoskeletal: Tenderness, Warmth, Other (Left BKA, lower extremity wound/necrosis) Integumentary: No rashes, Skin breakdown, Tenderness/swelling, Erythema, Warmth, Diabetic ulcer, Venous stasis ulcer Neurological: Normal speech, Normal strength at 5/5 x4 extr, Normal tone, Abnormal affect Lymphatics: No axilla or inguinal lymphadenopathy - Studies Laboratory Data (last 24 hrs) 02/01/25 02/01/25 02/01/25 23:16 23:16 23:16 WBC 14.70 H Hgb 10.5 L Hct 31.4 L Plt Count 327 PT 14.6 H INR 1.30 Sodium 133 L Potassium 3.5 BUN 43 H Creatinine 1.95 H Glucose 90 Magnesium 2.4 Total Bilirubin 0.2 AST 39 H ALT 66 H Alkaline Phosphatase 83 Lipase 149 H - Studies Laboratory Data (last 24 hrs) 02/01/25 02/01/25 02/01/25 23:16 23:16 23:16 WBC 14.70 H Hgb 10.5 L Hct 31.4 L Plt Count 327 PT 14.6 H INR 1.30 Sodium 133 L Potassium 3.5 BUN 43 H Creatinine 1.95 H Glucose 90 Magnesium 2.4 Total Bilirubin 0.2 AST 39 H ALT 66 H Alkaline Phosphatase 83 Lipase 149 H Assessment and Plan 02/08 - Scheduled for BKA in the morning - N.p.o. at midnight - Labs reviewed, CBC CMP 02/07 - Home with oral antibiotics for 6 weeks if he decides not to pursue BKA - He cannot leave with an IV due to concern for drug use - Discussed plan of care and options moving forward - He is now homeless 02/06 - Arrange for outpatient antibiotics, due to concern for drug use, will switch to oral medication and remove PICC line/midline - Discussed with infectious disease and general surgery Dr. Lay - Continue pain control with oxycodone and Dilaudid - Creatinine continues to improve Left Lower Extremity Osteomyelitis - S/p debridement 01/[address] Lay - Possible right BKA later this admission - Continue Zosyn and vancomycin - Leukocytosis resolved - Continue Vanco, Zosyn - Increased pain control to Dilaudid 2 mg and oxycodone extended release twice daily C/F Alcohol Abuse Elevated LFTs, mild - CIWA protocol - Multivitamin, thiamine, folic acid - NS IV fluids received in the ED - Received one-time dose of IV Ativan while in ED - AST 39, ALT 66, Lipase 149 - CT abd/pelvis showed Cholelithiasis without CT evidence of acute cholecystitis - Continue IV fluids NS @100mL/hr for now Renal insufficiency - Creatinine close to baseline - Continue to monitor renal function - Renal/pharmacy dose Vancomycin - Stop IV fluids History of seizure - Continue home medication once verified - Dilantin level ordered in ED; 1.9 - Consider EEG/neuro consult if suspected seizure - Seizure precautions History of diabetes type 2 - Blood glucose monitoring ACHS - A1c ordered - Insulin sliding scale, mild - Carb controlled diet Hx of CHF Hx of CAD - Continue home meds when appropriate and verified - Monitor for fluid overload - Cardiac diet Hx of COPD - Satting well on room air - Continue to monitor respiratory status - Continue home meds once verified DVT Ppx: Heparin Code Status: Full Code Discharge Plan: Group Home Plan to discharge in: 72 Hours - Advance Directives Does patient have a Living Will: No Does patient have a Durable POA for Healthcare: No
[2025-02-09] MEDS: DIPHENHYDRAMINE 25 MG TAB/CAP PO PRN (01:02)
[2025-02-09] MEDS: NA CHLORIDE 0.9% 1,000 ML ONE ×2 (10:55→14:59)
[2025-02-09] MEDS ORDERED: ONDANSETRON 4 MG/2 ML VIAL ONE (11:06)
[2025-02-09] MEDS ORDERED: LIDOCAINE 2% MPF 5 ML VIAL ONE (11:06)
[2025-02-09] MEDS ORDERED: FENTANYL CITR 100 MCG/2 ML ONE (11:07)
[2025-02-09] MEDS ORDERED: MIDAZOLAM HCL 2 MG/2 ML INJ ONE (11:08)
[2025-02-09] MEDS: EPHEDRINE SULF 50 MG/ML VIAL IV ONE (12:19)
[2025-02-09] MEDS: LIDOCAINE HCL/EPINEPHRINE 20 ML MDV ONE (12:39)
[2025-02-09] MEDS: FENTANYL CITR 100 MCG/2 ML IV ONE ×2 (12:54→13:18)
[2025-02-09] MEDS: BUPIVACAINE 0.25% PF 30 ML VIAL ONE (14:00)
--- NOTE | 2025-02-09 14:12 | P.OP ---
Resident Service Coordinator: Annelise Rai Preoperative diagnosis: RIGHT Foot Chronic Osteomyelitis Postoperative diagnosis: RIGHT Foot Chronic Osteomyelitis Primary procedure: RIGHT Below the Knee Amputation Anesthesia: GETA + Local Estimated blood loss: <20cc Specimen: RIGHT Lower Extremity Findings: Osteomyelitis of RIGHT Foot Complications: None Drain(s): SOFIE drain (7Fr, Flat SOFIE) Implants: Surgicel Sheet Transferred to: Recovery Room Condition: Good
--- NOTE | 2025-02-09 14:16 | P.PN ---
Date of Service: 02/09/25 did not see patient today. Pt was out for surgery for his right BKA
[2025-02-09] MEDS: HYDROMORPHONE HCL 1 MG/ML INJ ONE ×4 (14:25→14:55)
--- NOTE | 2025-02-09 17:22 | CON ---
Date of Consultation: 02/02/2025 Brief Hpi: The patient is a 59-year-old male with past medical history of peripheral vascular diseas e, coronary artery disease, CHF, diabetes, COPD, left vbeos-lyq-kyty amputation, right lower extremit y cellulitis, osteomyelitis, and multiple toe amputations before in the past. The patient has multip le amputations not by myself. I performed debridements on the patient, however, he developed osteomy elitis due to noncompliance, being homeless different times, ultimately denying any surgical interven tion other than debridements. He did not want any higher level amputations which were offered on mul tiple occasions for in the past. He continued to develop osteomyelitis, was treated with antibiotics and multiple wound care episodes. He, however, continues to have worsening his wound and I have rec ommended a pycga-igi-rzgs amputation as the patient continues to have worsening of his wound without any significant improvement in his osteomyelitis, which is corroborated with multiple imaging reports in the past. He now is ready to proceed with ahmcw-yhx-agby amputation as he has worsening pain. T he wounds are much larger, much more tender, much more drainage and he is ready to proceed with below -the-knee amputation at this point. Past Medical History: Hypertension, CHF, COPD, peripheral vascular disease, coronary artery disease, history of osteomyelitis, drug abuse, alcohol use, currently tobacco abuse with a pack per day, GERD , seizures, left xxpyp-hcv-qlyu amputation, right amputation of his toes in 2016 with other surgeons. I have debrided multiple times before in the past. Social History: He continues to smoke a pack per day. Drinks alcohol recreationally. Denies recrea tional drug use. Review of Systems: Ten-point review of systems other than HPI, denies. Allergies: NO KNOWN DRUG ALLERGIES. Home Medications: Include Keppra, escitalopram, Plavix, BuSpar, Neurontin, Zestril, carvedilol, Ultr am, Benzonatate, furosemide, lovastatin, metformin, Dilantin, Zoloft, Santyl, Bactroban, oxycodone, S ilvadene, vancomycin. Physical Examination: General: At the time of my examination, he is awake, alert, oriented. Psychiatric: Appropriate, conversive. HEENT: He is normocephalic. His sclerae are anicteric. His mucous membranes are moist. He has poor dentition. He has a lesion on his face which I have referred to Dr. Dong to see him for looks sa me as previously with excoriation of skin. Neck: Supple. No JVD. Chest: Normal to expansion and excursion. Cardiovascular: Regular rate and rhythm. Pulmonary: Clear to auscultation bilaterally. Abdomen: Soft. Extremities: Focused examination of the lower extremity, his BKA on the left, he has a multiple open wounds of the right lower extremity extending up to the mid foot with redness, drainage, tenderness, exposed bone and tendon consistent with osteomyelitis infection. He had imaging performed, which wa s officially read on this admission as soft tissue defect extending down to the level lateral tarsal correlate for osteomyelitis may be helpful. Assessment And Plan: This is a 59-year-old man who comes in with recurrent ongoing osteomyelitis of the right lower extremity. 1. IV fluid hydration. 2. Antibiotic coverage. 3. I have explained the risks, benefits, and alternatives of loqnd-mph-crad amputation including but not limited to bleeding, infection, damage to surrounding tissue, need for further operation, phantom limb pain, difficulty with mobility, need for ongoing wound care, need for additional surgical proce dures. Patient displayed understanding of the above stated plan, agrees to proceed as indicated at t his point. 4. Continue medical management per primary team. ANNA/RENATO Voice ID: [id number] Report ID: [id number]
[2025-02-09 22:15] LABS: Sqamous Epithelial <5 /HPF (None Seen); Urine Culture Reflex Order NOT NEEDED; Urine Microscopic Reflex YN ORDER UMIC
[2025-02-09 22:22] LABS: METHAMPHETAM NEGATIVE (NEGATIVE); THC Cannibis NEGATIVE (NEGATIVE)
--- NOTE | 2025-02-10 00:48 | OP ---
Date of Procedure: 02/09/2025 Surgeon: Faizan Lay MD, Ornithology Teacher: Annelise Padilla. Preoperative Diagnosis: Right foot chronic osteomyelitis. Postoperative Diagnosis: Right foot chronic osteomyelitis. Procedure Performed: Right gygap-kgw-flzz amputation. Anesthesia: General endotracheal plus local, 0.25% Marcaine without epinephrine. Estimated Blood Loss: Less than 5 cc. Specimen: Right lower extremity. Findings: Osteomyelitis of the right foot. Complications: None. Implants: Surgicel sheet. Drains: 7-Lithuanian flat SOFIE drain. Disposition: The patient was transferred to recovery room in good condition. Procedure In Detail: After informed consent was obtained, the patient was brought to the operating r oom, prepped and draped in the usual sterile fashion. After adequate anesthesia was achieved, I made a curvilinear incision based on the posterior gastroc flap after marking the area based on the poste rior gastroc flap 2 cm below the tibial plateau with a marking pen. There were significant open woun ds on multiple aspects of the leg, which included portions of the below-knee site; however, I was abl e to demarcate the area close to the wound, but not involving it on the posterior flap. At this poin t, I used an Esmarch to exsanguinate the right lower extremity and the tourniquet was applied with 25 0 mmHg. Total tourniquet time was 28 minutes of the case. After the tourniquet was applied, the Esm arch was removed. I then proceeded to cut down with a 10 blade down to subcutaneous tissues followin g the previously placed robertson. I then used electrocautery, dissected down circumferentially around t he same area down to subcutaneous tissues, using the LigaSure to ligate the saphenous veins. I then proceeded to dissect down through the anterior compartment along the tibia. I continued circumferent ially around, removing the anterior and lateral compartments as well as medial compartment circumfere ntially around using electrocautery. I then entered the interosseous space, dissected this free and peeled back all muscular attachments and connections to the tibia using a periosteal elevator. At th is point, I also pulled back the fibula approximately 1-1/2 to 2 cm above the transection point of th e tibia, pushing back the periosteum also back with the periosteal elevator at this point. At this p oint, I then brought in a laparotomy pad behind the tibia, swept back all tissue from the proximal di stal aspect of this using the bone saw and then I ligated the tibia followed by the fibula in a simil ar fashion. The fibula was transected approximately 1-1/2 to 2 cm above the transection point of the tibia. At this point, I proceeded to use the LigaSure to remove all muscular tissues exposing the a nterior tibial neurovascular bundle. This was individually ligated using 2-0 silk ties in stick-tie fashion followed by LigaSure device in the distal aspect. Then the posterior tibial neurovascular bu ndle was similarly dissected free, individually ligated with the same said 2-0 silk sutures and ligat ed using LigaSure device and then the peroneal neurovascular bundle in a similar fashion was swept ba ck, individually ligated with the same said 2-0 silk suture and ligated the distal aspect using the s leonel said LigaSure device. At this point, the nerve tissue was all injected with 0.25% Marcaine, pull ed down and allowed to retract back approximately. At this point, I used the Arabella knife to remove the tissues off the posterior aspect of the tibia and fibula. The specimen was then passed off after being ligated. At this point, I used a LigaSure device to ligate some small saphenous vessels on th e posterior flap. I then the soleus tissue and left the gastrocnemius flap in place. I re moved all the muscular tissue using a LigaSure device ultimately removing this in setting of patholog ic examination with the same said specimen. At this point, the area was irrigated. Hemostasis was a chieved. The tourniquet was put down at this time for 28 minutes total tourniquet time. At this poi nt, minimal muscular bleeding was appreciated, mostly on the medial aspect. At this point, I brought out a 7-Lithuanian flat SOFIE drain through a separate stab incision on the lateral aspect and placed it ne ar the interosseous position. At this point, I proceeded to bevel the edges of the tibia and fibula. The tissues were irrigated copiously at this point. There was some muscular bleeding on the latera l aspect. A piece of Surgicel was placed here as it was muscular in origin. At this point, good hem ostasis was achieved. I then brought the gastrocnemius flap anteriorly and placed it over the tibia and fibula on the anterior fascia at this point, securing it with a combination of 2-0 and 0 Vicryl s utures in an interrupted fashion, good approximation of the tissues. I irrigated the area once again and brought the skin together at the skin flap using a combination of 2-0 and 3-0 nylon sutures and interrupted alina. The area was copiously irrigated at this point, and sterile dressing placed ove r top in addition to knee immobilizer. The patient tolerated the procedure well without incident or complication and transferred to PACU in good condition. All counts were correct at the end of the ca se. TK/MODL Voice ID: [id number] Report ID: [id number]
[2025-02-10 06:23] LABS: Anion Gap 9.7 mEq/L (5.0-15.0); BUN Blood Urea Nitrogen 10.0 mg/dL (7-18); Glucose Level 104.0 mg/dL (74-106); Potassium 3.7 mEq/L (3.5-5.1)
[2025-02-10 07:48] LABS: Absolute Lymphocytes (CBC) 1.4 K/uL (0.7-4.9); Hematocrit 24.3 % (39.6-49.0); Hemoglobin 8.3 g/dL (13.6-17.9); MCH 31.5 pg (27.0-35.0); MCHC 34.2 g/dL (32.0-36.0); MCV 92.1 fL (80-100); MPV 8.1 fL (7.6-11.3); Nucleated RBC Absolute Count 0.0 (0-0); Nucleated Red Blood Cells % 0.0 % (0-0); RBC Red Blood Cell Count 2.64 M/uL (4.33-5.43); White Blood Count 8.20 thou/uL (4.3-10.9)
[2025-02-10] MEDS: AMINO ACIDS/PROTEIN HYDROLYS 30 ML LIQUID.PKT PO SCH (09:00)
[2025-02-10] MEDS: POTASSIUM CL SA 10 MEQ TAB PO ONE (09:22)
[2025-02-10] MEDS: HYDROMORPHONE HCL 2 MG/ML inj IV PRN (10:39)
--- NOTE | 2025-02-10 11:08 | P.PN ---
Date of Service: 02/09/25 Subjective: Scheduled for BKA today. Work on discharge planning afterwards. They will be very complicated as patient does not really have a lot of skilled nurse facility days remaining. As far as his pain goes he has complaining of pain diffusely. We use a multimodal approach for his pain control. Need to limit the narcotic use. Review of Systems Patient with pain. Will need multimodal pain modalities to treat pain and keep using too much narcotics Physical Examination - Vitals: reviewed - Physical Exam General: Oriented x2, Disheveled, Confused HEENT: Atraumatic, PERRLA, Mucous membr. moist/pink Neck: Supple, 2+ carotid pulse no bruit, No LAD Respiratory: Clear to auscultation bilaterally, Normal air movement Cardiovascular: Regular rate/rhythm, Normal S1 S2 Gastrointestinal: Normal bowel sounds, No tenderness Musculoskeletal: Tenderness, Warmth, Other (Left BKA, lower extremity wound/necrosis) Integumentary: No rashes, Skin breakdown, Tenderness/swelling, Erythema, Warmth, Diabetic ulcer, Venous stasis ulcer Neurological: Normal speech, Normal strength at 5/5 x4 extr, Normal tone, Abnormal affect Assessment and Plan 02/09 - Scheduled for BKA. Will use multimodal pain modality to treat his pain; arranging for physical therapy. Depending on how this goes we will need to arrange for discharge planning to care home facility or inpatient rehab. Long-term prognosis is very poor we need to keep him off narcotics so he can get back to living as close to a normal life as possible. 02/08 - Scheduled for BKA in the morning - N.p.o. at midnight - Labs reviewed, CBC CMP 02/07 - Home with oral antibiotics for 6 weeks if he decides not to pursue BKA - He cannot leave with an IV due to concern for drug use - Discussed plan of care and options moving forward - He is now homeless 02/06 - Arrange for outpatient antibiotics, due to concern for drug use, will switch to oral medication and remove PICC line/midline - Discussed with infectious disease and general surgery Dr. Lay - Continue pain control with oxycodone and Dilaudid - Creatinine continues to improve Left Lower Extremity Osteomyelitis - S/p debridement 01/[address] Lay - Possible right BKA later this admission - Continue Zosyn and vancomycin - Leukocytosis resolved - Continue Vanco, Zosyn - Increased pain control to Dilaudid 2 mg and oxycodone extended release twice daily C/F Alcohol Abuse Elevated LFTs, mild - CIWA protocol - Multivitamin, thiamine, folic acid - NS IV fluids received in the ED - Received one-time dose of IV Ativan while in ED - AST 39, ALT 66, Lipase 149 - CT abd/pelvis showed Cholelithiasis without CT evidence of acute cholecystitis - Continue IV fluids NS @100mL/hr for now Renal insufficiency - Creatinine close to baseline - Continue to monitor renal function - Renal/pharmacy dose Vancomycin - Stop IV fluids History of seizure - Continue home medication once verified - Dilantin level ordered in ED; 1.9 - Consider EEG/neuro consult if suspected seizure - Seizure precautions History of diabetes type 2 - Blood glucose monitoring ACHS - A1c ordered - Insulin sliding scale, mild - Carb controlled diet Hx of CHF Hx of CAD - Continue home meds when appropriate and verified - Monitor for fluid overload - Cardiac diet Hx of COPD - Satting well on room air - Continue to monitor respiratory status - Continue home meds once verified DVT Ppx: Heparin Code Status: Full Code Discharge Plan: Half-Way Plan to discharge in: 72 Hours - Advance Directives Does patient have a Living Will: No Does patient have a Durable POA for Healthcare: No
--- NOTE | 2025-02-10 11:09 | P.PN ---
Date of Service: 02/10/25 Subjective: Status post BKA. Physical therapy and Occupational Therapy consultation. As far as his pain goes he has complaining of pain diffusely. We use a multimodal approach for his pain control. Need to limit the narcotic use. Physical Examination - Vitals: reviewed - Physical Exam General: Oriented x2, Disheveled, Confused Respiratory: Clear to auscultation bilaterally, Normal air movement Cardiovascular: Regular rate/rhythm, Normal S1 S2 Gastrointestinal: Normal bowel sounds, No tenderness Musculoskeletal: Bilateral BKA s/p SOFIE drain Integumentary: Bilateral BKA s/p SOFIE drain Neurological: No focal deficits Assessment and Plan 02/10 - Postop day 1.; continue with multimodal pain modalities to treat his pain. Continue with PT and occupational therapy. Working on inpatient rehab placement. 02/09 - Scheduled for BKA today. Will use multimodal pain modality to treat his pain; arranging for physical therapy. Depending on how this goes we will need to arrange for discharge planning. Long-term prognosis is very poor we need to keep him off narcotics so he can get back to living as close to a normal life as possible. 02/08 - Scheduled for BKA in the morning - N.p.o. at midnight - Labs reviewed, CBC CMP 02/07 - Home with oral antibiotics for 6 weeks if he decides not to pursue BKA - He cannot leave with an IV due to concern for drug use - Discussed plan of care and options moving forward - He is now homeless 02/06 - Arrange for outpatient antibiotics, due to concern for drug use, will switch to oral medication and remove PICC line/midline - Discussed with infectious disease and general surgery Dr. Lay - Continue pain control with oxycodone and Dilaudid - Creatinine continues to improve Left Lower Extremity Osteomyelitis - S/p debridement 01/[address] Lay - Possible right BKA later this admission - Continue Zosyn and vancomycin - Leukocytosis resolved - Continue Vanco, Zosyn - Increased pain control to Dilaudid 2 mg and oxycodone extended release twice daily C/F Alcohol Abuse Elevated LFTs, mild - CIWA protocol - Multivitamin, thiamine, folic acid - NS IV fluids received in the ED - Received one-time dose of IV Ativan while in ED - AST 39, ALT 66, Lipase 149 - CT abd/pelvis showed Cholelithiasis without CT evidence of acute cholecystitis - Continue IV fluids NS @100mL/hr for now Renal insufficiency - Creatinine close to baseline - Continue to monitor renal function - Renal/pharmacy dose Vancomycin - Stop IV fluids History of seizure - Continue home medication once verified - Dilantin level ordered in ED; 1.9 - Consider EEG/neuro consult if suspected seizure - Seizure precautions History of diabetes type 2 - Blood glucose monitoring ACHS - A1c ordered - Insulin sliding scale, mild - Carb controlled diet Hx of CHF Hx of CAD - Continue home meds when appropriate and verified - Monitor for fluid overload - Cardiac diet Hx of COPD - Satting well on room air - Continue to monitor respiratory status - Continue home meds once verified DVT Ppx: Heparin Code Status: Full Code Discharge Plan: [facility] Plan to discharge in: 72 Hours - Advance Directives Does patient have a Living Will: No Does patient have a Durable POA for Healthcare: No
--- NOTE | 2025-02-10 13:02 | P.PN ---
Subjective Date of Service: 02/10/25 Chief Complaint: Lower extremity wound/osteomyelitis Subjective: Improving (Patient feels significant symptomatic improvement.) Physical Examination - Vital Signs Temperature: 98.0 F Blood Pressure: 121/56 Pulse: 79 Respirations: 18 Pulse Ox (%): 99 - Physical Exam General: Alert, In no apparent distress, Oriented x3, Cooperative Musculoskeletal: Other (BKA site is wrapped appropriately, minimal dark blood in SOFIE drain at this time. No bleeding through dressings or discharge.) Assessment And Plan - Plan Patient is a 59-year-old man status post right below the knee amputation. - Continue current treatment plan with rapid elevation continued SFOIE drain at this time -Continue medical management per primary team. Physician Review: Patient Assessed, Agree with Above Assessment and Plan
[2025-02-10] MEDS: HYDROMORPHONE HCL 1 MG/ML INJ IV PRN (14:30)
--- NOTE | 2025-02-10 20:43 | PN ---
Subjective: The patient is sitting in bed. Family friend is by the bedside. Denies any headache, n ausea, vomiting, chest pain, abdominal pain, constipation, diarrhea, status post right below-knee amp utation. Objective: Vital Signs: Temperature 98, pulse 104, respirations 16, blood pressure 113/73. Lungs: Basal crackles. Heart: S1, S2. Regular. Abdomen: Soft, nontender. Bowel sounds present. Extremities: Right below-knee amputation site in surgical dressing. Laboratory Data: Shows WBC 8.2, hemoglobin 8.3, platelets 299. Chemistry shows BUN of 10, creatinin e 1.2. Assessment And Plan: 1. Status post below-knee amputation for recurrent osteomyelitis and methicillin-resistant Staphyloco ccus aureus infection. The patient is doing well, afebrile in good spirits. 2. History of alcohol abuse and elevated liver enzyme. 3. Diabetes mellitus. 4. Severe protein-calorie malnourishment. 5. Anemia of chronic disease. Continue antibiotic and wound care as per surgical team. We will follow the patient as needed. NF/MODL Voice ID: [id number] Report ID: [id number]
[2025-02-11 05:58] LABS: Absolute Lymphocytes (CBC) 1.6 K/uL (0.7-4.9); Hematocrit 24.5 % (39.6-49.0); Hemoglobin 8.2 g/dL (13.6-17.9); MCH 30.7 pg (27.0-35.0); MCHC 33.3 g/dL (32.0-36.0); MCV 92.0 fL (80-100); MPV 7.3 fL (7.6-11.3); Nucleated RBC Absolute Count 0.0 (0-0); Nucleated Red Blood Cells % 0.0 % (0-0); RBC Red Blood Cell Count 2.67 M/uL (4.33-5.43); White Blood Count 6.20 thou/uL (4.3-10.9)
[2025-02-11 06:13] LABS: Anion Gap 10.5 mEq/L (5.0-15.0); BUN Blood Urea Nitrogen 11.0 mg/dL (7-18); Glucose Level 100.0 mg/dL (74-106); Potassium 3.5 mEq/L (3.5-5.1)
[2025-02-11] MEDS: POTASSIUM CL SA 10 MEQ TAB PO ONE (10:10)
--- NOTE | 2025-02-11 13:31 | P.PN ---
Date of Service: 02/11/25 subjective: pt report no problem with abx. WBC WNL, No fever/chill. denied NVD. pt just had right BKA two days ago objective: Temp Pulse Resp BP Pulse Ox 98.1 F 79 15 142/63 H 96 02/11/25 08:00 02/11/25 08:00 02/11/25 08:00 02/11/25 08:00 02/11/25 08:00 - Physical Exam General: Oriented x2 HEENT: Atraumatic, PERRLA, Neck: Supple Respiratory: Clear to auscultation bilaterally Cardiovascular:RRR Gastrointestinal: Normal bowel sounds, No tenderness, ND Integumentary: right BKA with dressing and SOFIE drain with minimal dark red drainage, left BKA labs: wbc 6.2, hgb 8.2, bun 11, cr 1.325, albumin 1.9 assessment and planning Right foot stump infection with OM s/p right BKA 02/09 anemia of chronic disease renal insufficiency alcohol and tobacco abuse DM2 severe protein calorie malnourishment continue wound care per surgeon order continue vancomycin will continue to see patient as needed case discussed and in agreement with Dr Conroy
[2025-02-11] MEDS ORDERED: BENZONATATE 100 MG CAP PO PRN (21:04)
[2025-02-12 05:14] LABS: Anion Gap 8.6 mEq/L (5.0-15.0); BUN Blood Urea Nitrogen 14.0 mg/dL (7-18); Glucose Level 98.0 mg/dL (74-106); Potassium 3.6 mEq/L (3.5-5.1)
[2025-02-12] MEDS: METFORMIN HCL 500 MG TAB PO SCH (08:00)
[2025-02-12] MEDS: levETIRAcetam 500 MG TAB PO SCH (10:00)
[2025-02-12] MEDS: ESCITALOPRAM OXALATE 10 MG TABLET PO SCH (10:01)
[2025-02-12] MEDS: POTASSIUM CL SA 10 MEQ TAB PO ONE (10:01)
[2025-02-12] MEDS: CLOPIDOGREL 75 MG TABLET PO SCH (10:01)
[2025-02-12] MEDS: GABAPENTIN 100 MG CAP PO SCH (10:01)
[2025-02-12] MEDS: PHENYTOIN ER 100 MG CAP PO SCH (10:01)
[2025-02-12] MEDS: SERTRALINE HCL 100 MG TAB PO SCH (10:02)
[2025-02-12] MEDS: BUSPIRONE HCL 15 MG TABLET PO SCH (10:02)
[2025-02-12] MEDS: ATORVASTATIN 10 MG TAB PO SCH (21:08)
--- NOTE | 2025-02-12 21:23 | PN ---
Subjective: The patient lying in bed. No new acute event. Continued to have pain at the surgical s ite. Objective: Vital Signs: Temperature 98, pulse 75, respirations 15, blood pressure 93/53. Lungs: Basal crackles. Heart: S1, S2. Regular. Abdomen: Soft, nontender. Bowel sounds present. Extremities: Right knee surgical wound noted. Arsenio are in place. SOFIE drain in place. Laboratory Data: Reviewed. Assessment And Plan: 1. Status post right below-knee amputation for recurrent osteomyelitis and methicillin-resistant Stap hylococcus aureus. 2. infection. 3. History of alcohol abuse with elevated liver enzymes. 4. Moderate protein-calorie malnourishment. 5. Anemia of chronic disease. The patient's A1c is below 5, and according to staff, he is not getting any diabetic medications exce pt which he has not been receiving and metformin. Monitor signs of infection. We will fo llow the patient as needed. Consider discontinuing vancomycin. We will follow the patient as needed . NF/MODL Voice ID: [id number] Report ID: [id number]
[2025-02-13] MEDS: ALBUTEROL INHALER 200 PUFF/6.7 GM IH PRN (01:26)
[2025-02-13 06:46] LABS: Anion Gap 10.0 mEq/L (5.0-15.0); BUN Blood Urea Nitrogen 11.0 mg/dL (7-18); Glucose Level 96.0 mg/dL (74-106); Potassium 4.0 mEq/L (3.5-5.1)
--- NOTE | 2025-02-13 13:05 | P.PN ---
Date of Service: 02/13/25 subjective: pt report no problem with abx. WBC WNL, No fever/chill. denied NVD. objective: Temp Pulse Resp BP Pulse Ox 98.2 F 69 18 99/58 L 97 02/13/25 12:00 02/13/25 12:00 02/13/25 12:00 02/13/25 12:00 02/13/25 12:00 - Physical Exam General: Oriented x2 HEENT: Atraumatic, PERRLA, Neck: Supple Respiratory: Clear to auscultation bilaterally Cardiovascular:RRR Gastrointestinal: Normal bowel sounds, No tenderness, ND Integumentary: right BKA with dressing and SOFIE drain with minimal dark red drainage, left BKA labs: wbc 6.2, hgb 8.2, bun 11, cr 1.325, albumin 1.9 assessment and planning Right foot stump infection with OM s/p right BKA 02/09 anemia of chronic disease renal insufficiency alcohol and tobacco abuse DM2 severe protein calorie malnourishment continue wound care per surgeon order dc vancomycin today will continue to see patient as needed case discussed and in agreement with Dr Conroy
[2025-02-14] MEDS ORDERED: VANCOMYCIN 1.75 GM in NA CHLORIDE 0.9% 500 ML IVPB SCH (06:00)
[2025-02-14] MEDS: TRAMADOL 37.5mg/APAP 325mg PER TAB PO PRN (14:20)
[2025-02-14] MEDS: HYDROMORPHONE HCL 1 MG/ML INJ IV ONE (14:20)
[2025-02-14] MEDS: GABAPENTIN 300 MG CAP PO SCH (21:09)
[2025-02-14] MEDS: HYDROMORPHONE HCL 0.5 MG/0.5 ML INJ IV PRN (21:16)
[2025-02-15] MEDS: OXYCODONE HCL 5 MG TAB PO PRN (03:30)
[2025-02-15 04:48] VITALS: BMI 23.2
[2025-02-15 16:01] LABS: Absolute Lymphocytes (CBC) 1.5 K/uL (0.7-4.9); Hematocrit 29.0 % (39.6-49.0); Hemoglobin 9.5 g/dL (13.6-17.9); MCH 30.2 pg (27.0-35.0); MCHC 32.8 g/dL (32.0-36.0); MCV 92.2 fL (80-100); MPV 7.3 fL (7.6-11.3); Nucleated RBC Absolute Count 0.0 (0-0); Nucleated Red Blood Cells % 0.1 % (0-0); RBC Red Blood Cell Count 3.14 M/uL (4.33-5.43); White Blood Count 6.00 thou/uL (4.3-10.9)
[2025-02-15 16:15] LABS: ALT/SGPT 20.0 U/L (16-61); AST/SGOT 18.0 U/L (15-37); Albumin 2.4 g/dL (3.4-5.0); Albumin/Globulin Ratio 0.4 (1.1-1.8); Alkaline Phosphatase 77.0 U/L (45-117); Anion Gap 10.2 mEq/L (5.0-15.0); BUN Blood Urea Nitrogen 14.0 mg/dL (7-18); Globulin 5.5 g/dL (2.3-3.5); Glucose Level 119.0 mg/dL (74-106); Magnesium 2.3 mg/dL (1.6-2.4); Potassium 4.2 mEq/L (3.5-5.1)
--- NOTE | 2025-02-15 22:23 | P.PN ---
Date of Service: 02/15/25 Subjective: Status post right BKA POD #6. Physical therapy and Occupational Therapy consultation appreciated; not approved for IPR; pt participating with OT and PT- since pt without without prosthesis and will only need upper body therapy IPR was not approved-recommend continued SNF x 1 week per insurance physician. Multi-modal pain modality and control Physical Examination - Vitals: reviewed - Physical Exam General: Oriented x2-3, following commands-uoset because of pain control Respiratory: Clear to auscultation bilaterally, Normal air movement Cardiovascular: Regular rate/rhythm, Normal S1 S2 Gastrointestinal: Normal bowel sounds, No tenderness Musculoskeletal: Tenderness, Warmth, Other (Left BKA, lower extremity wound/necrosis) Integumentary: below-knee amputation as mentioned above, Diabetic ulcer, Venous stasis ulcer Neurological: No focal deficits Assessment and Plan Right Lower Extremity Osteomyelitis s/p right BKA POD #6 - s/p right BKA; now with bilateral BKA-requiring upper body strengthening- insurance recommending SNF per OT notes where patient is optimized with transferring to wheelchair - no longer needing IV abx; - pain control; only oral meds at this time h/o of Alcohol Abuse -continue with cessation Renal insufficiency; CKD Stage III - GFR stage III; stable History of seizure - Continue home medication History of diabetes type 2 - Blood glucose monitoring ACHS - Insulin sliding scale, mild - Carb controlled diet Hx of CHF Hx of CAD - Continue home meds when appropriate and verified - Monitor for fluid overload - Cardiac diet Hx of COPD - Continue with room air - Continue to monitor respiratory status - Continue home meds once verified DVT Ppx: Heparin Code Status: Full Code Discharge Plan: Care Home-SNF vs Home with HH Plan to discharge in: once SNF accepted or denied - Advance Directives Does patient have a Living Will: No Does patient have a Durable POA for Healthcare: No
--- NOTE | 2025-02-15 22:31 | P.PN ---
Date of Service: 02/14/25 Subjective: Status post right BKA POD #5. Physical therapy and Occupational Therapy consultation appreciated; not approved for IPR yesterday per Insurance company; pt participating with OT and PT-since pt without without prosthesis and will only need upper body therapy IPR was not approved-recommend continued SNF x 1 week per insurance physician. Multi-modal pain modality and control Physical Examination - Vitals: reviewed - Physical Exam General: Oriented x2-3, following commands-uoset because of pain control Respiratory: Clear to auscultation bilaterally, Normal air movement Cardiovascular: Regular rate/rhythm, Normal S1 S2 Gastrointestinal: Normal bowel sounds, No tenderness Musculoskeletal: Tenderness, Warmth, Other (Left BKA, lower extremity wound/necrosis) Integumentary: below-knee amputation as mentioned above, Diabetic ulcer, Venous stasis ulcer Neurological: No focal deficits Assessment and Plan Right Lower Extremity Osteomyelitis s/p right BKA POD #5 - s/p right BKA; now with bilateral BKA-requiring upper body strengthening- insurance recommending SNF per OT notes where patient is optimized with transferring to wheelchair - no longer needing IV abx; - pain control; only oral meds at this time h/o of Alcohol Abuse -continue with cessation Renal insufficiency; CKD Stage III - GFR stage III; stable History of seizure - Continue home medication History of diabetes type 2 - Blood glucose monitoring ACHS - Insulin sliding scale, mild - Carb controlled diet Hx of CHF Hx of CAD - Continue home meds when appropriate and verified - Monitor for fluid overload - Cardiac diet Hx of COPD - Continue with room air - Continue to monitor respiratory status - Continue home meds once verified DVT Ppx: Heparin Code Status: Full Code Discharge Plan: [facility]-SNF vs Home with HH Plan to discharge in: once SNF accepted or denied - Advance Directives Does patient have a Living Will: No Does patient have a Durable POA for Healthcare: No
--- NOTE | 2025-02-15 22:32 | P.PN ---
Date of Service: 02/13/25 Subjective: Pt doing well with no new complaints; POD #4 Physical Examination - Vitals: reviewed - Physical Exam General: Oriented x2-3, following commands-uoset because of pain control Respiratory: Clear to auscultation bilaterally, Normal air movement Cardiovascular: Regular rate/rhythm, Normal S1 S2 Gastrointestinal: Normal bowel sounds, No tenderness Musculoskeletal: Tenderness, Warmth, Other (Left BKA, lower extremity wound/necrosis) Integumentary: below-knee amputation as mentioned above, Diabetic ulcer, Venous stasis ulcer Neurological: No focal deficits Assessment and Plan Right Lower Extremity Osteomyelitis s/p right BKA POD #4 - s/p right BKA; now with bilateral BKA-requiring upper body strengthening- insurance denied after peer to peer per OT notes; recommending SNF since OT notes state patient is optimized with transferring to wheelchair and just needs assistance in transferring with a board to wheelchair - no longer needing IV abx; - pain control; only oral meds at this time h/o of Alcohol Abuse -continue with cessation Renal insufficiency; CKD Stage III - GFR stage III; stable History of seizure - Continue home medication History of diabetes type 2 - Blood glucose monitoring ACHS - Insulin sliding scale, mild - Carb controlled diet Hx of CHF Hx of CAD - Continue home meds when appropriate and verified - Monitor for fluid overload - Cardiac diet Hx of COPD - Continue with room air - Continue to monitor respiratory status - Continue home meds once verified DVT Ppx: Heparin Code Status: Full Code Discharge Plan: Shelter-SNF vs Home with Plan to discharge in: once SNF accepted or denied - Advance Directives Does patient have a Living Will: No Does patient have a Durable POA for Healthcare: No
--- NOTE | 2025-02-15 22:35 | P.PN ---
Date of Service: 02/12/25 Subjective: Pt doing well with no new complaints; POD #3; pain still poorly controlled; working well with PT/OT-going downstairs to smoke on his own without any asst Physical Examination - Vitals: reviewed - Physical Exam General: Oriented x2-3, following commands; pain poorly controlled Respiratory: Clear to auscultation bilaterally, Normal air movement Cardiovascular: Regular rate/rhythm, Normal S1 S2 Gastrointestinal: Normal bowel sounds, No tenderness Musculoskeletal: bilateral BKA Integumentary: below-knee amputation as mentioned above Neurological: No focal deficits Assessment and Plan Right Lower Extremity Osteomyelitis s/p right BKA POD #4 - s/p right BKA; now with bilateral BKA-requiring upper body strengthening- insurance for IPR pending - no longer needing IV abx; - pain control; only oral meds at this time h/o of Alcohol Abuse -continue with cessation Renal insufficiency; CKD Stage III - GFR stage III; stable History of seizure - Continue home medication History of diabetes type 2 - Blood glucose monitoring ACHS - Insulin sliding scale, mild - Carb controlled diet Hx of CHF Hx of CAD - Continue home meds when appropriate and verified - Monitor for fluid overload - Cardiac diet Hx of COPD - Continue with room air - Continue to monitor respiratory status - Continue home meds once verified DVT Ppx: Heparin Code Status: Full Code Discharge Plan: Longterm-SNF vs Home with HH Plan to discharge in: once SNF accepted or denied - Advance Directives Does patient have a Living Will: No Does patient have a Durable POA for Healthcare: No
--- NOTE | 2025-02-15 22:44 | P.PN ---
Date of Service: 02/11/25 Subjective: Pt doing well with no new complaints; POD #2; pain poorly controlled; working with PT/OT; OOB and to wheelchair with transfer boards. Physical Examination - Vitals: reviewed - Physical Exam General: Oriented x2-3, following commands; pain poorly controlled Respiratory: Clear to auscultation bilaterally, Normal air movement Cardiovascular: Regular rate/rhythm, Normal S1 S2 Gastrointestinal: Normal bowel sounds, No tenderness Musculoskeletal: bilateral BKA Integumentary: below-knee amputation as mentioned above; SOFIE drain in place Neurological: No focal deficits Assessment and Plan Right Lower Extremity Osteomyelitis s/p right BKA POD #4 - s/p right BKA; now with bilateral BKA-requiring upper body strengthening- insurance for IPR pending; monitoring output - no longer needing IV abx; - pain control; only oral meds at this time h/o of Alcohol Abuse -continue with cessation Renal insufficiency; CKD Stage III - GFR stage III; stable History of seizure - Continue home medication History of diabetes type 2 - Blood glucose monitoring ACHS - Insulin sliding scale, mild - Carb controlled diet Hx of CHF Hx of CAD - Continue home meds when appropriate and verified - Monitor for fluid overload - Cardiac diet Hx of COPD - Continue with room air - Continue to monitor respiratory status - Continue home meds once verified DVT Ppx: Heparin Code Status: Full Code Discharge Plan: IPR Plan to discharge in: IPR - Advance Directives Does patient have a Living Will: No Does patient have a Durable POA for Healthcare: No
--- NOTE | 2025-02-16 10:30 | P.PN ---
Date of Service: 02/16/25 subjective: pt is off of abx. WBC WNL, No fever/chill. denied NVD. objective: Temp Pulse Resp BP Pulse Ox 98.0 F 65 16 112/51 L 99 02/16/25 08:00 02/16/25 09:00 02/16/25 09:24 02/16/25 09:00 02/16/25 09:24 - Physical Exam General: Oriented x2 HEENT: Atraumatic, PERRLA, Neck: Supple Respiratory: Clear to auscultation bilaterally Cardiovascular:RRR Gastrointestinal: Normal bowel sounds, No tenderness, ND Integumentary: right BKA with dressing labs: wbc 6, hgb 9.5, bun 14, cr 1.39, albumin 2.4 assessment and planning Right foot stump infection with OM s/p right BKA 02/09 anemia of chronic disease renal insufficiency alcohol and tobacco abuse DM2 severe protein calorie malnourishment continue wound care per surgeon order off of abx will continue to see patient as needed case discussed and in agreement with Dr Conroy
--- NOTE | 2025-02-16 15:55 | P.PN ---
Date of Service: 02/16/25 Subjective: Assuming care today. Endorsing uncontrolled pain. We discussed staying off IV pain meds in preparation for discharge. He rates his pain at a 10 out of 10. He denies fevers and chills. He is tolerating his diet. He is voiding and having regular bowel movements. Review of Systems General: Weakness Musculoskeletal: Leg Pain Integumentary: Bruising, Other (Multiple chronic wounds) Physical Examination - Physical Exam General: Oriented x2, Disheveled, Confused HEENT: Atraumatic, PERRLA, Mucous membr. moist/pink Neck: Supple, 2+ carotid pulse no bruit, No LAD Respiratory: Clear to auscultation bilaterally, Normal air movement Cardiovascular: Regular rate/rhythm, Normal S1 S2 Capillary refill: <2 Seconds Gastrointestinal: Normal bowel sounds, No tenderness Musculoskeletal: Tenderness, Warmth, Other (Left BKA, lower extremity wound/necrosis) Integumentary: No rashes, Skin breakdown, Tenderness/swelling, Erythema, Warmth, Diabetic ulcer, Venous stasis ulcer Neurological: Normal speech, Normal strength at 5/5 x4 extr, Normal tone, Abnormal affect Lymphatics: No axilla or inguinal lymphadenopathy - Studies Laboratory Data (last 24 hrs) 02/01/25 02/01/25 02/01/25 23:16 23:16 23:16 WBC 14.70 H Hgb 10.5 L Hct 31.4 L Plt Count 327 PT 14.6 H INR 1.30 Sodium 133 L Potassium 3.5 BUN 43 H Creatinine 1.95 H Glucose 90 Magnesium 2.4 Total Bilirubin 0.2 AST 39 H ALT 66 H Alkaline Phosphatase 83 Lipase 149 H - Studies Laboratory Data (last 24 hrs) 02/01/25 02/01/25 02/01/25 23:16 23:16 23:16 WBC 14.70 H Hgb 10.5 L Hct 31.4 L Plt Count 327 PT 14.6 H INR 1.30 Sodium 133 L Potassium 3.5 BUN 43 H Creatinine 1.95 H Glucose 90 Magnesium 2.4 Total Bilirubin 0.2 AST 39 H ALT 66 H Alkaline Phosphatase 83 Lipase 149 H Assessment and Plan Left Lower Extremity Osteomyelitis - s/p right BKA; now with bilateral BKA-requiring upper body strengthening- insurance recommending SNF per OT notes where patient is optimized with transferring to wheelchair - no longer needing IV abx - pain control; only oral meds at this time, increase oxycodone to 20 mg twice daily - S/p debridement 01/[address] Lay - Completed Zosyn and vancomycin - Leukocytosis resolved -Off of IV pain meds and will increase oral pain med C/F Alcohol Abuse Elevated LFTs, mild - CIWA protocol - Multivitamin, thiamine, folic acid - NS IV fluids received in the ED - Received one-time dose of IV Ativan while in ED - AST 39, ALT 66, Lipase 149 - CT abd/pelvis showed Cholelithiasis without CT evidence of acute cholecystitis - Continue IV fluids NS @100mL/hr for now Renal insufficiency - Creatinine close to baseline - Continue to monitor renal function - Renal/pharmacy dose Vancomycin - Stop IV fluids History of seizure - Continue home medication once verified - Dilantin level ordered in ED; 1.9 - Consider EEG/neuro consult if suspected seizure - Seizure precautions History of diabetes type 2 - Blood glucose monitoring ACHS - A1c ordered - Insulin sliding scale, mild - Carb controlled diet Hx of CHF Hx of CAD - Continue home meds when appropriate and verified - Monitor for fluid overload - Cardiac diet Hx of COPD - Satting well on room air - Continue to monitor respiratory status - Continue home meds once verified DVT Ppx: Heparin Code Status: Full Code [facility] Plan to discharge in: 72 Hours - Advance Directives Does patient have a Living Will: No Does patient have a Durable POA for Healthcare: No
[2025-02-16] MEDS: OXYCODONE *CR* 20 MG TAB PO SCH (21:01)
[2025-02-17 08:23] LABS: Absolute Lymphocytes (CBC) 2.4 K/uL (0.7-4.9); Hematocrit 25.7 % (39.6-49.0); Hemoglobin 8.7 g/dL (13.6-17.9); MCH 30.5 pg (27.0-35.0); MCHC 33.6 g/dL (32.0-36.0); MCV 90.7 fL (80-100); MPV 7.0 fL (7.6-11.3); Nucleated RBC Absolute Count 0.0 (0-0); Nucleated Red Blood Cells % 0.1 % (0-0); RBC Red Blood Cell Count 2.84 M/uL (4.33-5.43); White Blood Count 7.30 thou/uL (4.3-10.9)
[2025-02-17 08:43] LABS: ALT/SGPT 19.0 U/L (16-61); AST/SGOT 24.0 U/L (15-37); Albumin 2.4 g/dL (3.4-5.0); Albumin/Globulin Ratio 0.5 (1.1-1.8); Alkaline Phosphatase 73.0 U/L (45-117); Anion Gap 6.2 mEq/L (5.0-15.0); BUN Blood Urea Nitrogen 16.0 mg/dL (7-18); Globulin 4.7 g/dL (2.3-3.5); Glucose Level 100.0 mg/dL (74-106); Potassium 4.2 mEq/L (3.5-5.1)
--- NOTE | 2025-02-17 08:44 | RAD REPORT ---
EXAMINATION: XR PELVIS, BILATERAL HIPS CLINICAL INDICATION: Male, 59 years old. [facility] MAIN fall TECHNIQUE: AP Pelvis radiograph was obtained. Frog leg views of the bilateral were obtained. COMPARISON: No prior exam. FINDINGS: No evidence of fracture or dislocation. Normal alignment. Mild bilateral hip joint degenera tive changes. Vascular calcifications. No evidence of AVN. Soft tissues are otherwise unremarkable. IMPRESSION: No acute osseous abnormalities. Bilateral hip joint degenerative changes.
--- NOTE | 2025-02-17 08:45 | RAD REPORT ---
EXAM: XR Knee Left 2 View HISTORY: [facility] MAIN fall COMPARISON: None TECHNIQUE: 3 views of the left knee were obtained. FINDINGS: No knee effusion is seen. Status post below knee amputation. No osseous erosion. There is n o evidence of acute fracture or dislocation. Mild to moderate degenerative changes, although suboptimal positioning limits evaluation of the joint spaces. No soft tissue swelling. Vascular calci fications. IMPRESSION: No evidence of acute osseous abnormality. Findings as above
--- NOTE | 2025-02-17 08:45 | RAD REPORT ---
EXAM: XR Knee Right 2 View HISTORY: [facility] MAIN Fall COMPARISON: None TECHNIQUE: 3 views of the right knee were obtained. FINDINGS: No knee effusion is seen. Status post below knee amputation. No osseous erosion. There is n o evidence of acute fracture or dislocation. No significant degenerative changes are seen. No soft tissue swelling. Vascular calcifications.. IMPRESSION: No evidence of acute osseous abnormality. Findings as above.
--- NOTE | 2025-02-17 16:05 | P.PN ---
Date of Service: 02/17/25 Subjective: No new events. Sleeping on arrival. Denies fevers and chills Review of Systems General: Weakness Musculoskeletal: Leg Pain Integumentary: Bruising, Other (Multiple chronic wounds) Physical Examination - Physical Exam General: Oriented x2, Disheveled, Confused HEENT: Atraumatic, PERRLA, Mucous membr. moist/pink Neck: Supple, 2+ carotid pulse no bruit, No LAD Respiratory: Clear to auscultation bilaterally, Normal air movement Cardiovascular: Regular rate/rhythm, Normal S1 S2 Capillary refill: <2 Seconds Gastrointestinal: Normal bowel sounds, No tenderness Musculoskeletal: Tenderness, Warmth, Other (Left BKA, lower extremity wound/necrosis) Integumentary: No rashes, Skin breakdown, Tenderness/swelling, Erythema, Warmth, Diabetic ulcer, Venous stasis ulcer Neurological: Normal speech, Normal strength at 5/5 x4 extr, Normal tone, Abnormal affect Lymphatics: No axilla or inguinal lymphadenopathy - Studies Laboratory Data (last 24 hrs) 02/01/25 02/01/25 02/01/25 23:16 23:16 23:16 WBC 14.70 H Hgb 10.5 L Hct 31.4 L Plt Count 327 PT 14.6 H INR 1.30 Sodium 133 L Potassium 3.5 BUN 43 H Creatinine 1.95 H Glucose 90 Magnesium 2.4 Total Bilirubin 0.2 AST 39 H ALT 66 H Alkaline Phosphatase 83 Lipase 149 H - Studies Laboratory Data (last 24 hrs) 02/01/25 02/01/25 02/01/25 23:16 23:16 23:16 WBC 14.70 H Hgb 10.5 L Hct 31.4 L Plt Count 327 PT 14.6 H INR 1.30 Sodium 133 L Potassium 3.5 BUN 43 H Creatinine 1.95 H Glucose 90 Magnesium 2.4 Total Bilirubin 0.2 AST 39 H ALT 66 H Alkaline Phosphatase 83 Lipase 149 H Assessment and Plan 02/17 - Discharge planning - Patient is currently homeless, awaiting resources - Hemoglobin stable. - Continue pain control and wean as able Left Lower Extremity Osteomyelitis - s/p right BKA; now with bilateral BKA-requiring upper body strengthening- insurance recommending SNF per OT notes where patient is optimized with transfer ring to wheelchair - no longer needing IV abx - pain control; only oral meds at this time, increase oxycodone to 20 mg twice daily - S/p debridement 01/[address] Lay - Completed Zosyn and vancomycin - Leukocytosis resolved -Off of IV pain meds and will increase oral pain med C/F Alcohol Abuse Elevated LFTs, mild - CIWA protocol - Multivitamin, thiamine, folic acid - NS IV fluids received in the ED - Received one-time dose of IV Ativan while in ED - AST 39, ALT 66, Lipase 149 - CT abd/pelvis showed Cholelithiasis without CT evidence of acute cholecystitis - Continue IV fluids NS @100mL/hr for now Renal insufficiency - Creatinine close to baseline - Continue to monitor renal function - Renal/pharmacy dose Vancomycin - Stop IV fluids History of seizure - Continue home medication once verified - Dilantin level ordered in ED; 1.9 - Consider EEG/neuro consult if suspected seizure - Seizure precautions History of diabetes type 2 - Blood glucose monitoring ACHS - A1c ordered - Insulin sliding scale, mild - Carb controlled diet Hx of CHF Hx of CAD - Continue home meds when appropriate and verified - Monitor for fluid overload - Cardiac diet Hx of COPD - Satting well on room air - Continue to monitor respiratory status - Continue home meds once verified DVT Ppx: Heparin Code Status: Full Code [facility] Plan: [facility] Plan to discharge in: 72 Hours - Advance Directives Does patient have a Living Will: No Does patient have a Durable POA for Healthcare: No
--- NOTE | 2025-02-17 20:36 | PN ---
Subjective: The patient sitting in wheelchair. Denies any other problems. Had a fall yesterday. A s per nursing staff, patient tried to get out of the bed causing contusion to bilateral BKA area and back and wrist. Had x-ray of hip, pelvis, and knee. No other complaints. Objective: Vital Signs: Temperature 98, pulse 70, respirations 16, blood pressure 112/53. Lungs: Basal crackles. Heart: S1, S2. Regular. Abdomen: Soft, nontender. Bowel sounds present. Extremities: Wound noted. Laboratory Data: Shows WBC 7, hemoglobin 8.7, platelets 314. BUN of 16, creatinine 1.2, albumin lev el of 2.4. Assessment And Plan: 1. Right foot stump infection with osteomyelitis, status post right below-knee amputation on . 2. Anemia of chronic disease. 3. Severe protein-calorie malnourishment. 4. Diabetes mellitus. 5. Renal insufficiency. 6. Alcohol and tobacco abuse. Continue supportive care and wound care. The patient is off antibiotic. Afebrile. NF/MODL Voice ID: [id number] Report ID: [id number]
[2025-02-17 23:26] VITALS: O2SAT 99
--- NOTE | 2025-02-18 12:19 | P.PN ---
Date of Service: 02/18/25 subjective: pt is off of abx. WBC WNL, No fever/chill. denied NVD. objective: Temp Pulse Resp BP Pulse Ox 98.2 F 76 16 108/51 L 100 02/18/25 08:00 02/18/25 08:58 02/18/25 08:00 02/18/25 08:58 02/18/25 08:00 - Physical Exam General: Oriented x2 HEENT: Atraumatic, PERRLA, Neck: Supple Respiratory: Clear to auscultation bilaterally Cardiovascular:RRR Gastrointestinal: Normal bowel sounds, No tenderness, ND Integumentary: right BKA with dressing labs: wbc 7.3, hgb 8.7, bun 16, cr 1.29, albumin 2.4 assessment and planning Right foot stump infection with OM s/p right BKA 02/09 anemia of chronic disease renal insufficiency alcohol and tobacco abuse DM2 severe protein calorie malnourishment continue wound care per surgeon order off of abx will continue to see patient as needed case discussed and in agreement with Dr Conroy
[2025-02-18] MEDS: OXYCODONE *CR* 20 MG TAB PO SCH (17:08)
--- NOTE | 2025-02-18 17:42 | P.PN ---
Date of Service: 02/18/25 Subjective: Endorses uncontrolled pain. Denies fevers and chills. No acute events overnight Review of Systems General: Weakness Musculoskeletal: Leg Pain Integumentary: Bruising, Other (Multiple chronic wounds) Physical Examination - Physical Exam General: Oriented x2, Disheveled, Confused HEENT: Atraumatic, PERRLA, Mucous membr. moist/pink Neck: Supple, 2+ carotid pulse no bruit, No LAD Respiratory: Clear to auscultation bilaterally, Normal air movement Cardiovascular: Regular rate/rhythm, Normal S1 S2 Capillary refill: <2 Seconds Gastrointestinal: Normal bowel sounds, No tenderness Musculoskeletal: Tenderness, Warmth, Other (Left BKA, lower extremity wound/necrosis) Integumentary: No rashes, Skin breakdown, Tenderness/swelling, Erythema, Warmth, Diabetic ulcer, Venous stasis ulcer Neurological: Normal speech, Normal strength at 5/5 x4 extr, Normal tone, Abnormal affect Lymphatics: No axilla or inguinal lymphadenopathy - Studies Laboratory Data (last 24 hrs) 02/01/25 02/01/25 02/01/25 23:16 23:16 23:16 WBC 14.70 H Hgb 10.5 L Hct 31.4 L Plt Count 327 PT 14.6 H INR 1.30 Sodium 133 L Potassium 3.5 BUN 43 H Creatinine 1.95 H Glucose 90 Magnesium 2.4 Total Bilirubin 0.2 AST 39 H ALT 66 H Alkaline Phosphatase 83 Lipase 149 H - Studies Laboratory Data (last 24 hrs) 02/01/25 02/01/25 02/01/25 23:16 23:16 23:16 WBC 14.70 H Hgb 10.5 L Hct 31.4 L Plt Count 327 PT 14.6 H INR 1.30 Sodium 133 L Potassium 3.5 BUN 43 H Creatinine 1.95 H Glucose 90 Magnesium 2.4 Total Bilirubin 0.2 AST 39 H ALT 66 H Alkaline Phosphatase 83 Lipase 149 H Assessment and Plan 02/18 - Discharge today. Patient is appealing discharge - Increased pain control every 8 hours - Hemoglobin stable at 8.7, other labs reviewed 02/17 - Discharge planning - Patient is currently homeless, awaiting resources - Hemoglobin stable. - Continue pain control and wean as able Left Lower Extremity Osteomyelitis - s/p right BKA; now with bilateral BKA-requiring upper body strengthening- insurance recommending SNF per OT notes where patient is optimized with transferring to wheelchair - no longer needing IV abx - pain control; only oral meds at this time, increase oxycodone to 20 mg twice daily - S/p debridement 01/[address] Lay - Completed Zosyn and vancomycin - Leukocytosis resolved -Off of IV pain meds and will increase oral pain med C/F Alcohol Abuse Elevated LFTs, mild - CIWA protocol - Multivitamin, thiamine, folic acid - NS IV fluids received in the ED - Received one-time dose of IV Ativan while in ED - AST 39, ALT 66, Lipase 149 - CT abd/pelvis showed Cholelithiasis without CT evidence of acute cholecystitis - Continue IV fluids NS @100mL/hr for now Renal insufficiency - Creatinine close to baseline - Continue to monitor renal function - Renal/pharmacy dose Vancomycin - Stop IV fluids History of seizure - Continue home medication once verified - Dilantin level ordered in ED; 1.9 - Consider EEG/neuro consult if suspected seizure - Seizure precautions History of diabetes type 2 - Blood glucose monitoring ACHS - A1c ordered - Insulin sliding scale, mild - Carb controlled diet Hx of CHF Hx of CAD - Continue home meds when appropriate and verified - Monitor for fluid overload - Cardiac diet Hx of COPD - Satting well on room air - Continue to monitor respiratory status - Continue home meds once verified DVT Ppx: Heparin Code Status: Full Code Discharge Plan: [facility] Plan to discharge in: 72 Hours - Advance Directives Does patient have a Living Will: No Does patient have a Durable POA for Healthcare: No
[2025-02-19 11:57] LABS: Absolute Lymphocytes (CBC) 2.1 K/uL (0.7-4.9); Hematocrit 24.7 % (39.6-49.0); Hemoglobin 8.4 g/dL (13.6-17.9); MCH 31.0 pg (27.0-35.0); MCHC 34.0 g/dL (32.0-36.0); MCV 91.3 fL (80-100); MPV 7.3 fL (7.6-11.3); Nucleated RBC Absolute Count 0.0 (0-0); Nucleated Red Blood Cells % 0.0 % (0-0); RBC Red Blood Cell Count 2.71 M/uL (4.33-5.43); White Blood Count 6.80 thou/uL (4.3-10.9)
[2025-02-19 12:13] LABS: Anion Gap 10.1 mEq/L (5.0-15.0); BUN Blood Urea Nitrogen 23.0 mg/dL (7-18); Glucose Level 131.0 mg/dL (74-106); Potassium 4.1 mEq/L (3.5-5.1)
[2025-02-19 13:32] VITALS: BP 117/81; TEMP 97.8
--- NOTE | 2025-02-19 16:24 | P.PN ---
Date of Service: 02/19/25 Subjective: E vital stable overnight. Sleeping on arrival Review of Systems General: Weakness Musculoskeletal: Leg Pain Integumentary: Bruising, Other (Multiple chronic wounds) Physical Examination - Physical Exam General: Oriented x2, Disheveled, Confused HEENT: Atraumatic, PERRLA, Mucous membr. moist/pink Neck: Supple, 2+ carotid pulse no bruit, No LAD Respiratory: Clear to auscultation bilaterally, Normal air movement Cardiovascular: Regular rate/rhythm, Normal S1 S2 Capillary refill: <2 Seconds Gastrointestinal: Normal bowel sounds, No tenderness Musculoskeletal: Tenderness, Warmth, Other (Left BKA, lower extremity wound/necrosis) Integumentary: No rashes, Skin breakdown, Tenderness/swelling, Erythema, Warmth, Diabetic ulcer, Venous stasis ulcer Neurological: Normal speech, Normal strength at 5/5 x4 extr, Normal tone, Abnormal affect Lymphatics: No axilla or inguinal lymphadenopathy - Studies Laboratory Data (last 24 hrs) 02/01/25 02/01/25 02/01/25 23:16 23:16 23:16 WBC 14.70 H Hgb 10.5 L Hct 31.4 L Plt Count 327 PT 14.6 H INR 1.30 Sodium 133 L Potassium 3.5 BUN 43 H Creatinine 1.95 H Glucose 90 Magnesium 2.4 Total Bilirubin 0.2 AST 39 H ALT 66 H Alkaline Phosphatase 83 Lipase 149 H - Studies Laboratory Data (last 24 hrs) 02/01/25 02/01/25 02/01/25 23:16 23:16 23:16 WBC 14.70 H Hgb 10.5 L Hct 31.4 L Plt Count 327 PT 14.6 H INR 1.30 Sodium 133 L Potassium 3.5 BUN 43 H Creatinine 1.95 H Glucose 90 Magnesium 2.4 Total Bilirubin 0.2 AST 39 H ALT 66 H Alkaline Phosphatase 83 Lipase 149 H Assessment and Plan 02/19 - No new events - CBC and CMP reviewed - Encourage oral hydration 02/18 - Discharge today. Patient is appealing discharge - Increased pain control every 8 hours - Hemoglobin stable at 8.7, other labs reviewed 02/17 - Discharge planning - Patient is currently homeless, awaiting resources - Hemoglobin stable. - Continue pain control and wean as able Left Lower Extremity Osteomyelitis - s/p right BKA; now with bilateral BKA-requiring upper body strengthening- insurance recommending SNF per OT notes where patient is optimized with transferring to wheelchair - no longer needing IV abx - pain control; only oral meds at this time, increase oxycodone to 20 mg twice daily - S/p debridement 01/[address] Lay - Completed Zosyn and vancomycin - Leukocytosis resolved -Off of IV pain meds and will increase oral pain med C/F Alcohol Abuse Elevated LFTs, mild - CIWA protocol - Multivitamin, thiamine, folic acid - NS IV fluids received in the ED - Received one-time dose of IV Ativan while in ED - AST 39, ALT 66, Lipase 149 - CT abd/pelvis showed Cholelithiasis without CT evidence of acute cholecystitis - Continue IV fluids NS @100mL/hr for now Renal insufficiency - Creatinine close to baseline - Continue to monitor renal function - Renal/pharmacy dose Vancomycin - Stop IV fluids History of seizure - Continue home medication once verified - Dilantin level ordered in ED; 1.9 - Consider EEG/neuro consult if suspected seizure - Seizure precautions History of diabetes type 2 - Blood glucose monitoring ACHS - A1c ordered - Insulin sliding scale, mild - Carb controlled diet Hx of CHF Hx of CAD - Continue home meds when appropriate and verified - Monitor for fluid overload - Cardiac diet Hx of COPD - Satting well on room air - Continue to monitor respiratory status - Continue home meds once verified DVT Ppx: Heparin Code Status: Full Code Discharge Plan: [facility] Plan to discharge in: 72 Hours - Advance Directives Does patient have a Living Will: No Does patient have a Durable POA for Healthcare: No
--- NOTE | 2025-02-19 16:54 | P.DS ---
Admission Date: 02/02/25 Discharge Date: 02/19/25 Disposition: TRANSFER TO INPATIENT REHAB Discharge Condition: GOOD Reason for Admission: Lower extremity wound/osteomyelitis Brief History of Present Illness: Patient is a 59-year-old male with past medical history of PVD, CAD, CHF, diabetes type 2, COPD, Left BKA, right lower extremity cellulitis/osteomyelitis and toe amputation, and seizures who reports to the ED with increased pain to the right lower extremity x 1 day. Patient appears to be a poor historian during evaluation after receiving IV Ativan in the ED. Patient is s/p RLE debridement with on 01/08. Patient smelled of alcohol and appeared to be unkept with saturated wound dressings upon arrival to the ED. ED workup included head/spine CT with no acute abnormality, CT abd/pelvis Cholelithiasis without CT evidence of acute cholecystitis, sodium 133, creatinine 1.95, BNP 1291, and lipase 149. Patient received IV fluids, Ativan and Zosyn while in the ED and is now being admitted to medicine service for the possible need for repeat debridement at this time. Hospital Course: Review of Systems General: Weakness Musculoskeletal: Leg Pain Integumentary: Bruising, Other (Multiple chronic wounds) Physical Examination - Physical Exam General: Oriented x2, Disheveled, Confused HEENT: Atraumatic, PERRLA, Mucous membr. moist/pink Neck: Supple, 2+ carotid pulse no bruit, No LAD Respiratory: Clear to auscultation bilaterally, Normal air movement Cardiovascular: Regular rate/rhythm, Normal S1 S2 Capillary refill: <2 Seconds Gastrointestinal: Normal bowel sounds, No tenderness Musculoskeletal: Tenderness, Warmth, Other (Left BKA, lower extremity wound/necrosis) Integumentary: No rashes, Skin breakdown, Tenderness/swelling, Erythema, Warmth, Diabetic ulcer, Venous stasis ulcer Neurological: Normal speech, Normal strength at 5/5 x4 extr, Normal tone, Abnormal affect Lymphatics: No axilla or inguinal lymphadenopathy - Studies Laboratory Data (last 24 hrs) 02/01/25 02/01/25 02/01/25 23:16 23:16 23:16 WBC 14.70 H Hgb 10.5 L Hct 31.4 L Plt Count 327 PT 14.6 H INR 1.30 Sodium 133 L Potassium 3.5 BUN 43 H Creatinine 1.95 H Glucose 90 Magnesium 2.4 Total Bilirubin 0.2 AST 39 H ALT 66 H Alkaline Phosphatase 83 Lipase 149 H - Studies Laboratory Data (last 24 hrs) 02/01/25 02/01/25 02/01/25 23:16 23:16 23:16 WBC 14.70 H Hgb 10.5 L Hct 31.4 L Plt Count 327 PT 14.6 H INR 1.30 Sodium 133 L Potassium 3.5 BUN 43 H Creatinine 1.95 H Glucose 90 Magnesium 2.4 Total Bilirubin 0.2 AST 39 H ALT 66 H Alkaline Phosphatase 83 Lipase 149 H Assessment and Plan 02/19 - No new events - CBC and CMP reviewed - Encourage oral hydration 02/18 - Discharge today. Patient is appealing discharge - Increased pain control every 8 hours - Hemoglobin stable at 8.7, other labs reviewed 02/17 - Discharge planning - Patient is currently homeless, awaiting resources - Hemoglobin stable. - Continue pain control and wean as able Left Lower Extremity Osteomyelitis - s/p right BKA; now with bilateral BKA-requiring upper body strengthening- insurance recommending SNF per OT notes where patient is optimized with transf erring to wheelchair - no longer needing IV abx - pain control; only oral meds at this time, increase oxycodone to 20 mg twice daily - S/p debridement 01/[address] Lay - Completed Zosyn and vancomycin - Leukocytosis resolved -Off of IV pain meds and will increase oral pain med C/F Alcohol Abuse Elevated LFTs, mild - CIWA protocol - Multivitamin, thiamine, folic acid - NS IV fluids received in the ED - Received one-time dose of IV Ativan while in ED - AST 39, ALT 66, Lipase 149 - CT abd/pelvis showed Cholelithiasis without CT evidence of acute cholecystitis - Continue IV fluids NS @100mL/hr for now Renal insufficiency - Creatinine close to baseline - Continue to monitor renal function - Renal/pharmacy dose Vancomycin - Stop IV fluids History of seizure - Continue home medication once verified - Dilantin level ordered in ED; 1.9 - Consider EEG/neuro consult if suspected seizure - Seizure precautions History of diabetes type 2 - Blood glucose monitoring ACHS - A1c ordered - Insulin sliding scale, mild - Carb controlled diet Hx of CHF Hx of CAD - Continue home meds when appropriate and verified - Monitor for fluid overload - Cardiac diet Hx of COPD - Satting well on room air - Continue to monitor respiratory status - Continue home meds once verified DVT Ppx: Heparin Code Status: Full Code Discharge Plan: Long-Term Plan to discharge in: 72 Hours - Advance Directives Does patient have a Living Will: No Does patient have a Durable POA for Healthcare: No Vital Signs/Physical Exam: Temp Pulse Resp BP Pulse Ox 97.8 F 70 16 117/81 99 02/19/25 13:00 02/19/25 13:00 02/19/25 13:00 02/19/25 13:00 02/19/25 13:00 Laboratory Data at Discharge: WBC 6.80 thou/uL (4.3-10.9) 02/19/25 11:39 Hgb 8.4 g/dL (13.6-17.9) L 02/19/25 11:39 Hct 24.7 % (39.6-49.0) L 02/19/25 11:39 Plt Count 273 thou/uL (152-406) 02/19/25 11:39 PT 14.6 SECONDS (10-13.0) H 02/01/25 23:16 INR 1.30 02/01/25 23:16 Sodium 137 mEq/L (136-145) 02/19/25 11:39 Potassium 4.1 mEq/L (3.5-5.1) 02/19/25 11:39 BUN 23 mg/dL (7-18) H 02/19/25 11:39 Creatinine 1.41 mg/dL (0.70-1.30) H 02/19/25 11:39 Glucose 131 mg/dL (74-106) H 02/19/25 11:39 Phosphorus 3.6 mg/dL (2.5-4.9) 02/15/25 15:45 Magnesium 2.3 mg/dL (1.6-2.4) 02/15/25 15:45 Total Bilirubin 0.4 mg/dL (0.2-1.0) 02/17/25 08:16 AST 24 U/L (15-37) 02/17/25 08:16 ALT 19 U/L (16-61) 02/17/25 08:16 Alkaline Phosphatase 73 U/L (45-117) 02/17/25 08:16 Lipase 149 U/L (13-75) H 02/01/25 23:16 Home Medications: Escitalopram Oxalate 20 mg PO DAILY #30 tab 01/21/24 levETIRAcetam [Keppra*] 1,500 mg PO BID 04/16/24 Clopidogrel Bisulfate [Plavix] 75 mg PO DAILY #30 tab 08/26/24 Buspirone HCl 1 tab PO DAILY 12/30/24 Gabapentin [Neurontin*] 200 mg PO DAILY 12/30/24 Lisinopril [Zestril] 1 tab PO DAILY 12/30/24 carvediloL [Carvedilol] 6.25 mg PO DAILY 12/30/24 traMADol HCL [Ultram*] 1 tab PO Q6HR PRN 12/30/24 Benzonatate 100 mg PO Q8HR PRN 01/07/25 Lovastatin 20 mg PO BEDTIME 01/07/25 Metformin HCl 500 mg PO BID 01/07/25 PHENYTOIN ER Cap [Dilantin ER Cap*] 400 mg PO DAILY 01/07/25 Sertraline [Zoloft*] 100 mg PO DAILY 01/07/25 Diet: ADA Activity: Non-weight bearing Followup: Faizan Lay MD [ACTIVE - CAN ADMIT] - 1-2 Weeks Chaka Kennedy DO [Primary Care Provider] - 1-2 Weeks
== END 2025-02-19 16:38 | DRG 239 ==
LOC: ER 21:33 → 2ND 02-02 03:23
PROVIDERS: ADMIT Hospitalist; ATTEND Family Medicine
PROC: 0Y6H0Z1 Detachment at Right Lower Leg, High, Open Approach (ICD-10-PCS; principal; 2025-02-09 12:00)
DX: E11.52 Type 2 diabetes mellitus with diabetic peripheral angiopathy with gangrene (principal); E43 Unspecified severe protein-calorie malnutrition; G92.8 Other toxic encephalopathy; T87.43 Infection of amputation stump, right lower extremity; L03.115 Cellulitis of right lower limb; N17.9 Acute kidney failure, unspecified; M86.18 Other acute osteomyelitis, other site; Z59.00 Homelessness unspecified; I50.32 Chronic diastolic (congestive) heart failure; I13.0 Hypertensive heart and chronic kidney disease with heart failure and stage 1 through stage 4 chronic kidney disease, or unspecified chronic kidney disease; N18.30 Chronic kidney disease, stage 3 unspecified; E11.22 Type 2 diabetes mellitus with diabetic chronic kidney disease; E11.40 Type 2 diabetes mellitus with diabetic neuropathy, unspecified; D63.1 Anemia in chronic kidney disease; E86.0 Dehydration; F10.10 Alcohol abuse, uncomplicated; K21.9 Gastro-esophageal reflux disease without esophagitis; J44.9 Chronic obstructive pulmonary disease, unspecified; I83.029 Varicose veins of left lower extremity with ulcer of unspecified site; K80.20 Calculus of gallbladder without cholecystitis without obstruction; I25.10 Atherosclerotic heart disease of native coronary artery without angina pectoris; I25.2 Old myocardial infarction; T40.605A Adverse effect of unspecified narcotics, initial encounter; B95.62 Methicillin resistant Staphylococcus aureus infection as the cause of diseases classified elsewhere; F17.210 Nicotine dependence, cigarettes, uncomplicated; R79.89 Other specified abnormal findings of blood chemistry; Z71.6 Tobacco abuse counseling; Z95.5 Presence of coronary angioplasty implant and graft; Z68.23 Body mass index [BMI] 23.0-23.9, adult; Z79.02 Long term (current) use of antithrombotics/antiplatelets; Z86.14 Personal history of Methicillin resistant Staphylococcus aureus infection; Z89.421 Acquired absence of other right toe(s); Z89.512 Acquired absence of left leg below knee; Z79.899 Other long term (current) drug therapy; Z91.199 Patient's noncompliance with other medical treatment and regimen due to unspecified reason
CPT/HCPCS: 36415; 70450; 71045; 71250; 72125; 73521; 74176; 80048; 80053; 80076; 80185; 80202; 80307; 81001; 82947; 83036; 83690; 83735; 83880; 84100; 84484; 85025; 85610; 86140; 88307; 88311; 93005; 96365; 96375; 97161; 97165; 97530; 97542; 99285; J1171; J1644; J2003; J2250; J2405; J2543; J2704; J3010; J3370; J3590; J7030; J7040; Q2009

== ENCOUNTER 2025-02-19 13:39 | Inpatient (IN) | payer OTHER ==
[2025-02-19 17:27] VITALS: BMI 23.2
[2025-02-19] MEDS ORDERED: ALBUTEROL INHALER 200 PUFF/6.7 GM IH PRN (18:35)
[2025-02-19] MEDS ORDERED: ONDANSETRON 4 MG (ODT) TAB PO PRN (18:36)
[2025-02-19] MEDS: levETIRAcetam 500 MG TAB PO SCH (19:39)
[2025-02-19] MEDS: ATORVASTATIN 10 MG TAB PO SCH (19:40)
[2025-02-19] MEDS: GABAPENTIN 300 MG CAP PO SCH (19:40)
[2025-02-19] MEDS: OXYCODONE *CR* 10 MG TAB PO ONE (19:55)
[2025-02-19] MEDS: AMINO ACIDS/PROTEIN HYDROLYS 30 ML LIQUID.PKT PO SCH (20:00)
[2025-02-19] MEDS: TRAMADOL 37.5mg/APAP 325mg PER TAB PO PRN (21:36)
[2025-02-20] MEDS: OXYCODONE *CR* 20 MG TAB PO SCH (01:00)
[2025-02-20 05:33] LABS: Absolute Lymphocytes (CBC) 2.4 K/uL (0.7-4.9); Hematocrit 25.2 % (39.6-49.0); Hemoglobin 8.5 g/dL (13.6-17.9); MCH 30.7 pg (27.0-35.0); MCHC 33.6 g/dL (32.0-36.0); MCV 91.5 fL (80-100); MPV 7.5 fL (7.6-11.3); Nucleated RBC Absolute Count 0.0 (0-0); Nucleated Red Blood Cells % 0.0 % (0-0); RBC Red Blood Cell Count 2.76 M/uL (4.33-5.43); White Blood Count 7.10 thou/uL (4.3-10.9)
[2025-02-20 05:56] LABS: Albumin 2.5 g/dL (3.4-5.0); Anion Gap 10.8 mEq/L (5.0-15.0); BUN Blood Urea Nitrogen 25.0 mg/dL (7-18); Glucose Level 89.0 mg/dL (74-106); Magnesium 2.5 mg/dL (1.6-2.4); Potassium 4.8 mEq/L (3.5-5.1); Prealbumin 22.8 mg/dL (20-40)
[2025-02-20] MEDS ORDERED: FOLIC ACID 1 MG TABLET ONE (06:37)
[2025-02-20] MEDS ORDERED: FOLIC ACID 1 MG in NA CHLORIDE 0.9% 50 ML IV SCH (08:00)
[2025-02-20] MEDS: PHENYTOIN ER 100 MG CAP PO SCH (09:34)
[2025-02-20] MEDS: THIAMINE HCL 100 MG TABLET PO SCH (09:35)
[2025-02-20] MEDS: CLOPIDOGREL 75 MG TABLET PO SCH (09:35)
[2025-02-20] MEDS: SERTRALINE HCL 100 MG TAB PO SCH (09:35)
[2025-02-20] MEDS: MULTIVITAMIN TAB PO SCH (09:36)
[2025-02-20] MEDS: ESCITALOPRAM 20 MG TAB PO SCH (09:36)
[2025-02-20] MEDS: BUSPIRONE HCL 15 MG TABLET PO SCH (09:36)
[2025-02-20] MEDS: FOLIC ACID 1 MG TABLET PO SCH (09:36)
[2025-02-20] MEDS: TRAMADOL HCL 50 MG TAB PO PRN (11:42)
--- NOTE | 2025-02-20 13:54 | P.RH.PN ---
Estimated Length of Stay: 12 Expected Discharge Date: 03/03/25 Discharge Disposition Plan: Home Family Support: Yes [facility] Goal: Mobility, Transfers, Self Care Vital Signs: Last Vital Signs Temp 97.7 F 02/20/25 07:03 Pulse 72 02/20/25 09:35 Resp 15 02/20/25 12:42 BP 132/61 02/20/25 09:35 Pulse Ox 98 02/20/25 07:03 Laboratory: Laboratory Last Values WBC 7.10 thou/uL (4.3-10.9) 02/20/25 04:51 RBC 2.76 M/uL (4.33-5.43) L 02/20/25 04:51 Hgb 8.5 g/dL (13.6-17.9) L 02/20/25 04:51 Hct 25.2 % (39.6-49.0) L 02/20/25 04:51 MCV 91.5 fL (80-100) 02/20/25 04:51 MCH 30.7 pg (27.0-35.0) 02/20/25 04:51 MCHC 33.6 g/dL (32.0-36.0) 02/20/25 04:51 RDW 15.6 % (12.1-15.2) H 02/20/25 04:51 Plt Count 310 thou/uL (152-406) 02/20/25 04:51 MPV 7.5 fL (7.6-11.3) L 02/20/25 04:51 Neutrophils % 48.3 % (41.7-73.7) 02/20/25 04:51 Lymphocytes % 33.3 % (15.3-44.8) 02/20/25 04:51 Monocytes % 9.0 % (3.3-12.3) 02/20/25 04:51 Eosinophils % 8.5 % (0-4.4) H 02/20/25 04:51 Basophils % 0.9 % (0-1.3) 02/20/25 04:51 Absolute Neutrophils 3.4 K/uL (1.8-8.0) 02/20/25 04:51 Absolute Lymphocytes 2.4 K/uL (0.7-4.9) 02/20/25 04:51 Absolute Monocytes 0.6 K/uL (0.1-1.3) 02/20/25 04:51 Absolute Eosinophils 0.6 K/uL (0-0.5) H 02/20/25 04:51 Absolute Basophils 0.1 K/uL (0-0.5) 02/20/25 04:51 Sodium 137 mEq/L (136-145) 02/20/25 04:51 Potassium 4.8 mEq/L (3.5-5.1) D 02/20/25 04:51 Chloride 107 mEq/L (98-107) 02/20/25 04:51 Carbon Dioxide 24 mEq/L (21-32) 02/20/25 04:51 Anion Gap 10.8 mEq/L (5.0-15.0) 02/20/25 04:51 BUN 25 mg/dL (7-18) H 02/20/25 04:51 Creatinine 1.18 mg/dL (0.70-1.30) 02/20/25 04:51 Est GFR (CKD-EPI) 71 ml/min (=/>90) L 02/20/25 04:51 Glucose 89 mg/dL (74-106) 02/20/25 04:51 Calcium 8.2 mg/dL (8.5-10.1) L 02/20/25 04:51 Magnesium 2.5 mg/dL (1.6-2.4) H 02/20/25 04:51 Albumin 2.5 g/dL (3.4-5.0) L 02/20/25 04:51 Prealbumin 22.8 mg/dL (20-40) 02/20/25 04:51 Weight: 176 lb Wound Present: Yes Closed Surgical Incision Present: Yes Physician Update: Labs reviewed. His right stump has good hemostasis. SBA bed mobility, mod assist slide board transfer. WC 80' independent with shoulder and leg pain. He need mod to max assist for transfers and ADLs. Summary: Patient's care plan and [facility] goals have been reviewed and revised as necessary. Please see the Rehabilitation Signature page for all necessary signatures.
[2025-02-20] MEDS: DULOXETINE 20 MG CAP PO SCH (20:18)
--- NOTE | 2025-02-20 22:53 | HP ---
Date of Admission: 02/19/2025 Time: 1:00 p.m. Chief Complaint: "I had my other leg cut off. I need to be able to get around." History Of Present Illness: Mr. Leblanc is a 59-year-old patient with diabetes mellitus type 2, conge stive heart failure with low ejection fraction, COPD, coronary artery disease, renal insufficiency, s eizures, and alcohol use disorder in addition to right and left below the knee amputation, who has be en prior to coming to the inpatient rehabilitation unit, in and out of many hospitals over 3 months d ue to worsening right lower extremity osteomyelitis and that was initially managed by debridement and IV antibiotics. He was seen on 01/08 and had worsening right lower extremity pain and despite conse rvative treatment, the patient's wound did not improve. He was eventually seen by the surgical servi ce and ID Service and ultimately had a right below-knee amputation on 02/09/2025. Following amputati on, he was kept on IV antibiotics, IV fluids, pain control, wound management, and had wound care prot ocol followed with carb controlled diet for his diabetes mellitus, seizure precautions, fluid restric tion based on cardiac function, and again pain managed. His course further complicated by requiring significant medication for pain, following his labs on an ongoing basis, managing the infection, and addressing issues of self-limiting behaviors. Prior to the patient's recent admission, he did live independently in a wheelchair level at the [facility] in a non-ADA compliant department. However, he lost his housing and is currently requiring [employer] for bed mobilization, transfers and minimal assistance for dressing upper and lower body, marsha dby assistance for grooming and hygiene. He was again previously independent with wheelchair, now de pendent. He is referred for inpatient rehabilitation and is now admitted to inpatient rehabilitation unit for physical, occupational, and speech therapy while his comorbid conditions are addressed incl uding the stump management with Wound Care, his risk of infection, his diabetes mellitus, congestive heart failure, blood pressure, and the need for antibiotics. He will have physical, occupational, an d speech therapy while he is in hospital. Past Medical History: Hypertension, diastolic CHF, COPD, coronary artery disease, peripheral vascula r disease, prior amputations of the foot, now bilateral below the knee amputation, history of alcohol abuse, tobacco abuse, seizures. Past Surgical History: Right great and second toe amputation, January 10; left partial foot amputatio n, February 13; and right partial foot amputation subsequently; and now bilateral below the knee amp utation. Imaging Studies: Chest x-ray on 02/01/2025 shows small right pleural effusion with right basilar ate lectasis versus airspace disease. CT of the head and C-spine on 02/01 shows no acute intracranial ab normalities. There is chronic small vessel ischemic disease in the periventricular white matter. CT of the abdomen and pelvis and chest on 02/01/2025 without contrast is normal study. No acute abnorm alities identified. There is cholelithiasis without CT evidence of cholecystitis. Foot x-ray on 11/2024 shows soft tissue defect extending down to the level of the lateral metatarsals, f or osteomyelitis. No gas densities noted. Hip and pelvic x-ray on 02/16/2025, no acute osseous proc ess. Bilateral hip joint degenerative changes seen. The x-ray on 02/16/2025, no evidence of acute o sseous abnormalities. Laboratory Studies: White blood cell count 7.1, hemoglobin 8.5, platelets 310. Sodium 137, potassiu m 4.0, chloride 107, carbon dioxide 24, BUN 25, creatinine 1.18, glucose 89, calcium 8.2. Magnesium 2.5. Albumin 2.5 as well. Prealbumin 22.8. Medications: Ventolin inhaler 2 puffs every 6 hours as needed for shortness of breath, amino acids, ProSource 30 mL twice daily, Lipitor 10 mg at bedtime, Tessalon Perles 100 mg 3 times daily as needed for cough, buspirone 7.5 mg daily, Coreg 6.25 mg daily, Plavix 75 mg daily, Cymbalta 20 mg twice tess ly. Also, on Lexapro 20 mg daily. The Lexapro will likely be discontinued. He is also on Dilantin 400 mg extended release daily, Zofran 4 mg every 6 hours as needed, multivitamin, Centrum 1 tablet da temi, thiamine 100 mg daily, Zoloft 100 mg daily, tramadol 50 mg every 6 hours as needed. Review of Systems: He does report significant pain in his lower extremities, back, and the right buttock region, also in the left shoulder and right shoulder. At one point, he did fall impacting the shoulder. There were imaging studies done showed no fractures there. Otherwise, he reports some myalgias, arthralgias. No rash. Some features of depression he admits to. Otherwise, no other positives on the systems rev iew. Family History: Noncontributory. Social History: The patient with history of alcohol or tobacco use. Current Level Of Functioning: Setup assistance for grooming, maximum assistance for bathing, moderat e assistance for upper and lower body dressing and donning and doffing footwear. For toileting, supe rvision; transfers from bed, chair, wheelchair, supervision; toilet transfers, supervision. Ambulati on, unable to ambulate. He has bilateral amputations in the lower extremities. Wheelchair mobilizat ion 75 feet with independence. Physical Examination: Vital Signs: Blood pressure 132/61, pulse 72, respiratory rate 14, temperature is 97.7, oxygen satur ation 98%. General: Mr. Leblanc is lying in bed in mild distress at one point, but pain level is currently 0. H e is somewhat disheveled, appears older than stated age, . HEENT: Normocephalic, atraumatic. Sclerae anicteric. Oropharynx moist. EXTREMITIES: He has below-knee amputations with good hemostasis at stump sites. Rehab And Medical Assessment And Plan: Mr. Leblanc is a 59-year-old patient admitted to the inpatient rehabilitation unit with impairment category 10, amputation of lower extremity. Impairment group co de is 05.7 bilateral lower limb below the knee amputation. Comorbid conditions are decreased mobility, which is significant; decreased physical functioning in a ddition to hypertension, diastolic CHF, COPD, coronary artery disease, peripheral vascular disease, s eizures, alcohol abuse, GE reflux, tobacco abuse, and multiple amputations, now below the knee amputa tion bilaterally. Also, depression. Plan for the patient will be to have physical, occupational, and speech therapy 3.5 hours, 5 of 7 day s. He has comorbid conditions, which have been mentioned. He will have tramadol for pain, thiamine to reduce the risk of alcohol withdrawal, Zoloft is also on board for depression, Dilantin for seizur e risk reduction, Zofran for nausea, Centrum Silver on board as well. He has methocarbamol muscle re laxant on board for muscle spasms, Prinivil for hypertension, Keppra 1500 mg twice daily for seizure frequency reduction. He has gabapentin 300 mg 3 times daily for neuropathic pain, folic acid 1 mg da temi, Lexapro 10 mg daily, duloxetine 20 mg twice daily, Plavix 75 mg daily, Coreg 6.25 mg daily, busp irone 7.5 mg daily, Tessalon Perles 100 mg 3 times daily, Lipitor 10 mg at bedtime, Ventolin inhaler, amino acids, ProSource. Comorbidities That Are Impacting His Rehabilitation: He apparently has bilateral below-knee amputati on. The patient will be transferring by sliding board using arms getting from bed to wheelchair, to commode, to shower. He does have a significant risk of falling and injury at this point. He does gutiérrez ve the amputation close to his knees, making it difficult for him at this point to be easily mobilize and transfer; however, with proper technique and motivation, he is likely to do very well given his young age of 59. He does have diabetes, hypertension, CHF, which will also have to be continuously m onitored and optimized to reduce his risk of worsening. Will have incentive spirometry, glucose a.c. and at bedtime and parameters were set for very elevated blood pressure of greater than 170 or very low blood pressures as well for intervention such as with clonidine or Florinef or midodrine if neede d. Rehab Specific Plan: Mr. Leblanc will have physical, occupational, and speech therapy 3.5 hours, 5 of 7 days to improve his ability to transfer, likely with sliding board from bed to chair, to toilet, t o shower, to get in and out of the shower and on and off the toilet, to dress upper and lower body as well. He will have occupational therapy for activities of daily living and speech to help with his situation awareness, plan and execute safely transfers and mobilization to minimize the risk of falli ng, and to work on cognition as well. Mr. Leblanc has a good understanding of the process of admission to the inpatient rehabilitation unit and how he will benefit from physical, occupational, and if need be speech therapy. He will have 24 hours a day, 7 days a week skilled rehabilitation nursing, daily physician evaluation and management, and social sciences research scientist evaluation and management for discharge planning, home equipment, and to continu e therapy after his discharge. If need be, the hospitalist service and the orthopedic service will b e consulted. Barriers To Discharge: He is a below-knee amputee bilaterally. His apartment he is now currently ev icted from and needs to be in a facility that has [employer] compliance. The pa daniel will potentially have to go into a snf after his discharge as there is no immediate family available and he again has been evicted from his current residence. That may pose a challenge in the patient's discharge. Length Of Stay: About 14 days. Disposition: Again, patient potentially may have to go to a snf and work on being able to contin ue with therapy as possible . Prognosis: Fair. Code Status: Full code. Rehab Specific Goals: 1. Become independent with upper and lower body dressing. 2. Become independent with transferring by sliding board from bed to chair, to wheelchair, to toilet. 3. Mobilize a wheelchair 250 feet and be able to get up from the floor with independence. 4. He is expected to perform cognitive functioning independently and safety awareness issues as well. The above goals were reviewed with Mr. Leblanc and he is in agreement. By signing this document, I acknowledge I personally performed a full physical examination on Mr. Bonnie sanchez no later than 24 hours after his admission to the inpatient rehabilitation unit and determined he is able to tolerate the above course of treatment at an intensive level for reasonable period of arianna e. A detailed individualized plan of care for him will be completed by hospital day 4 based on the p readmission screen, history and physical, and therapy evaluations. HINA Voice ID: [id number]
[2025-02-21 03:46] LABS: Urine Microscopic Reflex YN NO UMIC
[2025-02-23] MEDS: LIDOCAINE 4% PATCH TOP SCH (09:00)
[2025-02-23] MEDS ORDERED: LOPERAMIDE HCL 2 MG CAPSULE ONE (09:16)
--- NOTE | 2025-02-23 23:05 | PN ---
Date of Progress Note: 02/23/2025 Time: 1:10 p.m. Subjective: Mr. Leblanc is resting comfortably. He reports bilateral lower extremity ampu tations, but still pain in his right shoulder and back. He otherwise is progressing fairl y well in terms of how he feels about his progress. Objective: No fevers or chills. No myalgias, arthralgias, mild stomach pain, back pain as noted. Physical Examination: Vital Signs: Blood pressure 120/56, pulse 79, respiratory rate 18, temperature 98.0, oxygen saturati on 98%. bilateral amputations with BMI 23.2. General: Mr. Leblanc is resting well movement. Abdomen: Soft. Extremities: Bilateral lower extremities of course amputated. Right lower extremity got good hemost asis. Laboratory Studies: White blood cell count is 7.1, hemoglobin 8.5, platelets are 310. Sodium 137, p otassium 4.8, chloride 107, carbon dioxide 24, BUN 25, creatinine 1.18, magnesium 2.5, albumin 2.5, p realbumin 22.8, calcium 8.2. Urinalysis is unremarkable. X-ray/imaging: No new x-rays or imaging. Medications: Albuterol inhaler 2 puffs every 6 hours as needed for shortness of breath, amino acids, ProSource 30 mL twice daily, Lipitor 10 mg at bedtime, Tessalon Perles 100 mg 3 times daily for coug h, buspirone 7.5 mg daily, Coreg 6.25 mg daily, Plavix 75 mg daily, duloxetine 20 mg twice daily, fol ic acid 1 mg daily, gabapentin 300 mg 3 times daily, Keppra 1500 mg twice daily, lidocaine patch appl y topically daily, Prinivil 10 mg daily, Loperamide or Imodium 2 mg every 6 hours. The patient jerry lewis did have some episodes of loose stools right after protein intake, but that has stopped after the Imodium, last one actually at the time of my evaluation about 5 hours previously. Robaxin 500 mg 3 times daily, Centrum Silver 1 tablet daily, mg daily, Zoloft 100 mg daily, thiamine 100 mg daily, tramadol 50 mg 6 hours as needed new. He is progressed with physical and occupational therapy. With physical therapy, he did complete bed mobility, standby assistance supervision, completed multiple [id number] transfers with contact guar d assistance for safety awareness wheelchair mobilization 250 feet twice with modified ind ependent with modified independence. With occupational therapy, transferred us ing an assistive device, sliding board. He did bilateral upper extremity exercises with Thera-Band, work on deltoids, triceps, biceps. Assessment And Plan: Mr. Leblanc is a 59-year-old patient with right lower extremity osteomyelitis, s tatus post right below-knee amputation and chronic left below-knee amputation. He has multiple comor bid conditions including decreased mobility, decreased physical functioning, alcohol related issues, on medication for prophylaxis. He has epilepsy on multiple medications, Robaxin for muscle spasms. Continue with blood pressure control, duloxetine for depression, Plavix for stroke risk reduction, __ Ventolin inhaler for shortness of breath, Tessalon Perles for cough. His plan will be to co ntinue with physical and occupational therapy 3 hours a day, 5/7 days. Continue with use of comorbid condition medications. The patient does have some challenges as to where he is going to go after [facility]. SAM/RENATO Voice ID: [id number] Report ID: [id number]
[2025-02-24] MEDS: LOPERAMIDE HCL 2 MG CAPSULE PO PRN (22:14)
[2025-02-25] MEDS: BENZONATATE 100 MG CAP PO PRN (01:10)
--- NOTE | 2025-02-25 01:16 | PN ---
Date of Progress Note: 02/24/2025 Time Of Service: 1:10. Subjective: Mr. Leblanc was sitting in a wheelchair beside his bed and he is feeling much better toda y. Still has some phantom limb pain in the right lower extremity. He has the left below the knee am putation and does have some pain in the buttocks area and in the shoulders from mobilizing the wheelc hair. Review of Systems: Again, mild myalgias, arthralgias. No rash. No psychiatric complaints. No other positives on the s ystems review. Physical Examination: Vital Signs: Blood pressure 130/59, pulse 79, respiratory rate 18, temperature 98.1, oxygen saturati on 97%. General: Mr. Leblanc is sitting in a chair beside the bed. HEENT: He appears normocephalic, atraumatic. Sclerae anicteric. Extremities: He has bilateral below-knee amputation, the right is more recent. The patient in terms of where he has to go, potentially may end up at [facility] or at a [facility]. He does have a friend who may be able to help him as he currently is in a homeless state. Laboratory Studies: He has no new laboratory studies except blood sugars today ranged up to 94. X-ray/imaging: No new x-rays or imaging. Medications: Have been reviewed and are unchanged. Progress Made With Physical And Occupational Therapy: With physical therapy today, bed mobility, tico moreno cuing for correct hand placements, did multiple. Stand pivot transfers, standby assistance. Cont inued to refuse sliding board transfers and actually did toilet transfers independently. Mobilized a wheelchair 250 feet 3 times independently and did outdoors on even surfaces as well as with inclined ramp. With his occupational therapy, independent for bxmknn-rn-jyk transfers, did have again pain i n the buttocks, left shoulder as noted. He was incontinent with bowel movement and for toileting, he was dependent for toilet hygiene. Supervision for upper body dressing, and lower body dr sy. Assessment And Plan: Mr. Leblanc is a 59-year-old patient in the rehabilitation unit with right lower extremity osteomyelitis, status post right below the knee amputation. He already has a left below t he knee amputation. He has decreased mobility; decreased physical functioning; dyslipidemia; protein malnutrition; cough, that has resolved; and risk of stroke. He is on Plavix for stroke risk reducti on. He has Cymbalta for depression, Coreg for blood pressure control, gabapentin for neuropathic анна n, Keppra and phenytoin for seizure risk reduction. He has thiamine 100 mg daily for alcohol withdra wal, which is highly unlikely at this point. Has methocarbamol for muscle spasms, tramadol for pain. Plan will be to continue with physical and occupational therapy 3 hours a day, 5 of 7 days. Continue his medications for comorbid conditions. In terms of his disposition, as patient is currently hom[facility], he is planning on perhaps [facility] or [facility] and will have a friend help with dr sy of his right lower extremity stump. The patient at that facility will not likely be able to g et Home Health as this not his physical address. If he is able to a home with an address that is therapy that may likely be able to resume. SAM/RENATO Voice ID: [id number] Report ID: [id number]
[2025-02-25] MEDS: LOPERAMIDE HCL 2 MG CAPSULE PO STA (13:52)
[2025-02-25] MEDS: TRAMADOL HCL 50 MG TAB PO PRN (13:52)
--- NOTE | 2025-02-26 02:02 | PN ---
Date of Progress Note: 02/25/2025 Time: 1:10. Subjective: Mr. Leblanc is feeling better about his therapy. He still has some pain in the right leg where he is status post amputation below the knee. Does have a chronic left below-knee amputation a nd did request an adjustment of his pain medications and that was done including [place], tramadol, and gabapentin. Review of Systems: He denies any fevers, chills. Reports the pain as noted in his right lower extremity. Otherwise, he is feeling good about his therapy so far. He still does not have a place to go once he leaves the ospital and may end up again going to [facility] or [facility] or assisted facility. Physical Examination: Vital Signs: Blood pressure is 138/64, pulse 88, respiratory rate of 16, temperature 98.6, oxygen sa turation 99%. General: Mr. Leblanc is sitting in a chair, waiting to do therapy. HEENT: He is normocephalic, atraumatic. Sclerae anicteric. Oropharynx pink. Extremities: Lower extremities, amputations bilaterally. Good hemostasis at the right. The surgica l site of the right below the knee stump, there are [address] and good hemostasis noted. Laboratory Studies: No new laboratory studies. X-ray/imaging: No new x-rays or imaging. Medications: Noted he has had adjustment of medications including Crossville 5/325 every 4 hours as neede d for severe pain. He has tramadol scheduled. Also, gabapentin 300 mg 3 times daily, lidocaine patc h also on board in addition to his Dilantin for seizure prophylaxis along with Keppra and thiamine fo r potential seizures and alcohol withdrawal. we will continue with physical and occupational therapy. Continue his list of medications for comorbid conditions and his again pain medications were adjusted. Progress Made With Physical, Occupational Therapy, And Speech Therapy: With physical therapy today, he did complete wheelchair mobilization 500 feet independently and additional 250 feet independently and that was subsequently in afternoon session. With bed mobility, he was able to do that with modif ied independence. Multiple yzqded-fy-syg transfers with supervision to modified independence. With occupational therapy, he did propel from the wheelchair to the gym independently, self propelled in the room and outside independently and was able to change clothes, wash off in bed after transferring at the end of this session. He did have education provided by Speech Therapy. Assessment And Plan: Mr. Benji tomas is a 59-year-old patient with right lower extremity osteomyeli tis, status post amputation. He has a chronic left below the knee amputation. He has multiple comor bid conditions, but is making great progress with mobilization via his wheelchair. He has medication for seizure prophylaxis, for hypertension. He has neuropathic pain medications along with Crossville and tramadol and lidocaine patch. He has Lipitor for dyslipidemia. He is continuing on protein supplem entation for protein malnutrition. He will continue with all therapy as noted that is physical, occu pational, and speech therapy 3.5 hours, 5 of 7 days. LB/MODL Voice ID: [id number] Report ID: [id number]
[2025-02-26 06:51] LABS: Absolute Lymphocytes (CBC) 2.2 K/uL (0.7-4.9); Hematocrit 28.3 % (39.6-49.0); Hemoglobin 9.5 g/dL (13.6-17.9); MCH 30.7 pg (27.0-35.0); MCHC 33.7 g/dL (32.0-36.0); MCV 91.1 fL (80-100); MPV 7.8 fL (7.6-11.3); Nucleated RBC Absolute Count 0.0 (0-0); Nucleated Red Blood Cells % 0.0 % (0-0); RBC Red Blood Cell Count 3.10 M/uL (4.33-5.43); White Blood Count 7.30 thou/uL (4.3-10.9)
[2025-02-26 07:14] LABS: Albumin 2.8 g/dL (3.4-5.0); Anion Gap 8.7 mEq/L (5.0-15.0); BUN Blood Urea Nitrogen 26.0 mg/dL (7-18); Glucose Level 92.0 mg/dL (74-106); Magnesium 2.5 mg/dL (1.6-2.4); Potassium 4.7 mEq/L (3.5-5.1); Prealbumin 30.2 mg/dL (20-40)
[2025-02-26] MEDS: TRAMADOL HCL 50 MG TAB PO SCH (08:12)
[2025-02-26] MEDS: LIDOCAINE 4% PATCH TOP SCH (08:13)
[2025-02-26] MEDS: LOPERAMIDE HCL 2 MG CAPSULE PO ONE ×2 (09:54→10:29)
[2025-02-26] MEDS: GABAPENTIN 300 MG CAP PO SCH (14:46)
[2025-02-26] MEDS: ALPRAZOLAM 0.25 MG TABLET PO PRN (16:25)
[2025-02-26] MEDS: LIDOCAINE 5% OINT 30 GM TUBE TOP SCH (20:00)
[2025-02-26] MEDS: levETIRAcetam 500 MG TAB PO SCH (20:50)
--- NOTE | 2025-02-26 22:26 | PN ---
Date of Progress Note: 02/26/2025 Time: 1:25. Subjective: Mr. Leblanc is doing well about his therapy. He has bilateral amputations rig ht lower extremity due to worsening osteomyelitis. He is still worried about exactly where he will g o after his discharge. He is still working with friends to be able to go to a safe place. Objective: No fevers, chills. Moderate pain in the stump of the right lower extremity and did reque st some adjustment of his pain medications to help deal with pain he is experiencing. Physical Examination: Vital Signs: Blood pressure 133/71, pulse up to 89, respiratory rate 16-18, temperature 98.6, oxygen saturation 98%. General: Mr. Leblanc is resting in a chair. HEENT: He is normocephalic, atraumatic. Sclerae anicteric. Oropharynx moist. He has good hemostas is at the stump site on his right and his chronic left stump site from both below the knee amputation s. Laboratory Studies: White blood cell count 7.3, hemoglobin 9.5, platelets 200. Sodium 137, potassiu m 4.7, chloride 112, carbon dioxide 21, BUN 26, creatinine 1.12, glucose 9.2, calcium 9.1, magnesium 2.5, albumin 2.8, prealbumin 30.2. X-ray/imaging: No new x-rays or imaging. Medications: Medications have been adjusted. The gabapentin dosage has been increased to 600 mg 3 t imes daily from 300 mg 3 times daily. His Keppra dosage was decreased to 750 mg twice daily from 150 0 mg twice daily. It is noted the patient did have some significant loose stools and his magnesium s upplementation was discontinued and the Keppra was cut in half. The gabapentin was increased. In ad dition, he does have a Imodium on board 4 mg q.4 and that will be continued. He has tramadol that is scheduled 50 mg daily to help mitigate the pain. Progress Made With Physical, Occupational, And Speech Therapy: With physical therapy today, he did c omplete bed mobility by scooting and rolling independently, perform multiple vjabrt-bq-fdm transfers independently, and did bed to mat and wheelchair transfer with contact guard assistance. Mobilized w heelchair 40 feet, 250 feet, 125 feet, and 175 feet independently and mobilized a wheelchair later on , another 770 feet outside of the land on even surfaces. With occupational therapy, propelled a whee lchair backwards to improve his control and mobility, self propel a wheelchair to the gym. Did also go from gym to outside, all independently. Assessment And Plan: Mr. Leblanc is a 59-year-old patient in the rehabilitation unit with right lower extremity osteomyelitis, status post amputation. He has a right below-knee amputation and left belo w-knee amputation is chronic. He had several loose stools in the last few days and multiple medicati ons have been adjusted. He will address that issue and has Imodium on board, magnesium discontinued, protein supplementation is continued. He does have gabapentin for neuropathic pain. tram adol also. His comorbid condition medications will continue including thiamine and Dilantin on board . He has methocarbamol for muscle relaxation. Prinivil for hypertension control and Keppra dose has been decreased. Gabapentin 600 mg 3 times daily for neuropathic pain. He also has duloxetine for p ain and depression, Plavix for stroke risk reduction, Coreg for heart rate and blood pressure control , and again [employer] has not given. He has Xanax for anxiety and Ventolin inhaler. Plan , he will continue with physical and occupational therapy 3 hours a week, 5 of 7 days. He will christy nue with the list of medications. Continued to address the loose stools as well as noted. SAM/RENATO Voice ID: [id number] Report ID: [id number]
--- NOTE | 2025-02-27 13:33 | P.RH.PN ---
Estimated Length of Stay: 10 Expected Discharge Date: 03/04/25 Discharge Disposition Plan: Home Family Support: Yes Group Home Goal: Mobility, Transfers, Self Care Vital Signs: Last Vital Signs Temp 97.7 F 02/27/25 07:54 Pulse 78 02/27/25 07:54 Resp 16 02/27/25 07:54 BP 116/69 02/27/25 07:54 Pulse Ox 98 02/27/25 07:54 Laboratory: Laboratory Last Values WBC 7.30 thou/uL (4.3-10.9) 02/26/25 06:19 RBC 3.10 M/uL (4.33-5.43) L 02/26/25 06:19 Hgb 9.5 g/dL (13.6-17.9) L 02/26/25 06:19 Hct 28.3 % (39.6-49.0) L 02/26/25 06:19 MCV 91.1 fL (80-100) 02/26/25 06:19 MCH 30.7 pg (27.0-35.0) 02/26/25 06:19 MCHC 33.7 g/dL (32.0-36.0) 02/26/25 06:19 RDW 16.1 % (12.1-15.2) H 02/26/25 06:19 Plt Count 200 thou/uL (152-406) 02/26/25 06:19 MPV 7.8 fL (7.6-11.3) 02/26/25 06:19 Neutrophils % 52.4 % (41.7-73.7) 02/26/25 06:19 Lymphocytes % 30.5 % (15.3-44.8) 02/26/25 06:19 Monocytes % 9.2 % (3.3-12.3) 02/26/25 06:19 Eosinophils % 6.7 % (0-4.4) H 02/26/25 06:19 Basophils % 1.2 % (0-1.3) 02/26/25 06:19 Absolute Neutrophils 3.8 K/uL (1.8-8.0) 02/26/25 06:19 Absolute Lymphocytes 2.2 K/uL (0.7-4.9) 02/26/25 06:19 Absolute Monocytes 0.7 K/uL (0.1-1.3) 02/26/25 06:19 Absolute Eosinophils 0.5 K/uL (0-0.5) 02/26/25 06:19 Absolute Basophils 0.1 K/uL (0-0.5) 02/26/25 06:19 Sodium 137 mEq/L (136-145) 02/26/25 06:19 Potassium 4.7 mEq/L (3.5-5.1) 02/26/25 06:19 Chloride 112 mEq/L (98-107) H 02/26/25 06:19 Carbon Dioxide 21 mEq/L (21-32) 02/26/25 06:19 Anion Gap 8.7 mEq/L (5.0-15.0) 02/26/25 06:19 BUN 26 mg/dL (7-18) H 02/26/25 06:19 Creatinine 1.12 mg/dL (0.70-1.30) 02/26/25 06:19 Est GFR (CKD-EPI) 75 ml/min (=/>90) L 02/26/25 06:19 Glucose 92 mg/dL (74-106) 02/26/25 06:19 POC Glucose 94 mg/dL (65-120) 02/24/25 19:33 Calcium 9.1 mg/dL (8.5-10.1) 02/26/25 06:19 Magnesium 2.5 mg/dL (1.6-2.4) H 02/26/25 06:19 Albumin 2.8 g/dL (3.4-5.0) L 02/26/25 06:19 Prealbumin 30.2 mg/dL (20-40) 02/26/25 06:19 Urine Color Colorless (Yellow) 02/21/25 03:35 Urine Clarity Clear (Clear) 02/21/25 03:35 Urine pH 7.0 (5.0-7.0) 02/21/25 03:35 Ur Specific [place] 1.012 (1.005-1.030) 02/21/25 03:35 Glucose (UA)(Auto) Negative (Negative) 02/21/25 03:35 Urine Ketones Negative (Negative) 02/21/25 03:35 Urine Blood Negative (Negative) 02/21/25 03:35 Urine Nitrite Negative (Negative) 02/21/25 03:35 Urine Bilirubin Negative (Negative) 02/21/25 03:35 Urine Urobilinogen Normal (Normal) 02/21/25 03:35 Ur Leukocyte Esterase Negative Cassia/uL (Negative) 02/21/25 03:35 Urine Total Protein Negative (Negative) 02/21/25 03:35 Weight: 176 lb Wound Present: No Closed Surgical Incision Present: Yes Physician Update: Labs are stable. Pain up to 7/10 at the left leg. Loss of bowel and bladder control but he is drinking 5-6 Ensure bottles daily. Independent bed mobility, CGA bet to chair transfers.WC 775' independent. Met all OT goals and is independent. His pain is managed. Summary: Patient's care plan and terminal clerk goals have been reviewed and revised as necessary. Please see the Rehabilitation Signature page for all necessary signatures.
[2025-03-01] MEDS: HYDROCODONE/APAP 5/325 MG TAB PO PRN (19:17)
--- NOTE | 2025-03-03 00:18 | PN ---
Date of Progress Note: 03/02/2025 Time: 1 p.m. Subjective: Mr. Leblanc is mobilizing independently in his wheelchair. He is reporting, however, ro e mild pain and swelling in the right pfjru-olz-dswj amputation stump, the lateral end when looking t oward the patient on the left. However, the incision is slightly open. [place] however are still pr esent. There is good hemostasis. Granulation tissue seen. The patient is being evaluated on ongoin g basis by Wound Care Service. Dr. Anderson is evaluating the patient. The patient is concerned amelia t he is discharged that the wound would not be attended to and he is asking for extension of his stay . Objective: Again some mild pain and mild swelling noticed per patient. He thought there was some wa rmth in the right lower extremity stump. Otherwise, no additional complaints. Physical Examination: Vital Signs: Blood pressure 113/54, pulse of 94, respiratory rate 16, temperature 98.1, oxygen satur ation 96%. General: Mr. Leblanc again is resting in bed. He does report pain radiating for up to 8 in the right lower below the knee stump. Otherwise, the patient is smelling of cigarette smoke. He is going out side to smoke on a frequent basis. Neuro: He has no focal upper extremity neurological deficits. Chest: Good air movement. Laboratory Studies: No new laboratory studies. X-ray/imaging: No new x-rays or imaging. Medications: Have been reviewed and are unchanged. Progress Made With Physical, Occupational, And Speech Therapy: With physical therapy today, he was a ble to do bed mobility, scooting, rolling independently, perform multiple qfavue-gs-yth transfers ind ependently, multiple bed to mat transfers and wheelchair independently, mobilized a wheelchair 750 fe et and 125 feet and another 1750 feet independently. With occupational therapy, propel a wheelchair from room to gym 250 back, slow pace, and around the first floor and did go down to grab sugar packet s for tea and did very well and did so independently. Did exercise with upper extremities with 4-marvin nd dumbbells to improve his strength. Assessment And Plan: Mr. Leblanc is a 59-year-old patient with a right below-knee amputation. He has a chronic left below-knee amputation. He is doing excellent in terms of his progress with physical and occupational therapy. Still is very worried about the right below-knee stump. He does not have a place to go at this point and is looking to go to a correction, but is very worried. He will be unabl e to manage his wound and have the therapy continue. He is also somewhat anxious about the possibili ty of being put out of the hospital and having I guess no place to go. In terms of his plan, we will continue with physical and occupational therapy while hospitalized. Continue with gabapentin 600 mg 3 times daily, which is helpful for his neuropathic pain. Continue with his stool softener. He is holding laxatives, but bowel movements have slowed down. No evidence of ongoing diarrhea. Still has anxiety, hypertension, risk of seizures present, but no seizures while hospitalized. He will contin ue again with all comorbid condition medications and therapy until a place for him is determined if h e may be able to be discharged. SAM/RENATO Voice ID: [id number] Report ID: [id number]
--- NOTE | 2025-03-03 23:38 | PN ---
Date of Progress Note: 03/03/2025 Time: 1:10 p.m. Subjective: Mr. Leblanc is resting in his room. He had come back from going down to smoke. He was t old multiple times not to smoke, but he still insists on smoking on a daily basis multiple times. He is very worried about being discharged even though he is doing well. He is doing very well with his therapy, independent with activities such as transferring, getting in and out of bed, mobilizing 100 s of feet at a time, actually about 1000 feet as going down to smoke and coming back up. He does not have a place to go to and is awaiting on a friend to potentially help him and he did have an appeal to stay in hospital. Appeal may be denied and he would be ready for discharge tomorrow. Review of Systems: No fevers or chills. No myalgias, arthralgias. Does report persistent pain in the right lower extre mity stump. He also has left below-knee amputation that is healed, chronic procedure. Physical Examination: Vital Signs: Blood pressure 130/53, pulse 92, respiratory rate 16, temperature 98.1, oxygen saturati on 99%. General: Mr. Leblanc is again sitting in a chair. He is in no acute distress. HEENT: Normocephalic, atraumatic. Sclerae anicteric. Extremities: He does have fair healing noted in the right lower extremity below the knee amputation stump. He has the alina removed. Laboratory Studies: No new laboratory studies. X-ray/imaging: No new x-rays or imaging. Medications: Have been reviewed and are unchanged. Progress Made With Physical And Occupational Therapy: With physical therapy today, he did bed mobili ty, scooting in bed, rolling independently, performed multiple iumhjl-ua-aqa transfers independently, and did a bed to wheelchair transfer independently. He ambulated 1000 feet, another 2000 feet, 125 feet, and 1500 feet independently. Did backwards and forward mobilization independently. With occup ational therapy, independent to self propulsion to the gym with a wheelchair 250 feet independently a nd around the unit, all independent, doing all his activities independently. Assessment And Plan: Mr. Leblanc is a 59-year-old patient in rehabilitation unit with right lower ext remity osteomyelitis, status post right below-knee amputation. He does have a chronic left below the knee amputation. He is doing excellent with his therapy. Still has dyslipidemia, protein malnutrit ion, resolved cough depression, neuropathic pain, and risk of seizures. He has hypertension, muscle spasms. He has pain managed by multiple modalities. Plan: Mr. Leblanc again is as noted above, has the right lower extremity osteomyelitis. He does not have a place to go to as he is currently homeless, working on going to a group home with a friend. He i s slated, however, to continue with wound care to manage the wound in the right leg and eventually to work on getting prosthesis for both legs. The patient did have an appeal to remain in hospital and if it is denied, patient will have a discharge placed tomorrow. SAM/RENATO Voice ID: [id number] Report ID: [id number]
--- NOTE | 2025-03-05 00:34 | PN ---
Date of Progress Note: 03/04/2025 Time: 1:10 p.m. Subjective: Mr. Leblanc is doing very well. He is in a chair and is very happy, but still does not h ave a place to go after his discharge. Review of Systems: No new complaints. Still going down to smoke on a regular basis. Physical Examination: Vital Signs: Blood pressure is 118/58 pulse 88, respiratory rate 16, temperature 98.2, oxygen satura tion 99%. General: Mr. Leblanc is sitting in a chair. He is mobilizing around the unit very well, independentl y. HEENT: He is normocephalic, atraumatic. Sclerae anicteric, Extremities: He has good hemostasis at the right below the knee surgical amputation site. Dressings in place. Laboratory Studies: No new laboratory studies. X-ray/imaging: No new x-rays and imaging. Medications: Have been reviewed and are unchanged. Progress Made With Physical And Occupational Therapy: With physical therapy today, he mobilized indo ors and outdoors 1000 feet, 1500 feet independently with wheelchair, mobilized also 2500 feet outside surfaces, forwards and backwards very independently. With his occupational therapy, arlene pendently self propelled from wheelchair to outside, to shower independently; performing activities, transferring, bathing, doing very well, all independently; IADLs and ADLs, all independent. Assessment And Plan: Mr. Leblanc is a 59-year-old patient in the rehabilitation unit with the left lo wer extremity osteomyelitis and has been treated with amputation below the knee. He is doing very we ll. No evidence of any decreased mobility or physical functioning. Still has tobacco dependency, go es out to smoke on a daily basis in spite of being admonished to stop. He is improving his nutrition al status. Blood pressure is controlled. Pain is managed. He has risk of seizures, but that is yelena y minimal and has pain again that is managed well. Plan will be to continue with physical and occupa tional therapy his discharge and await to see the outcome of the appeal for him to stay in the unit for an extended time. Otherwise, the patient may be discharged to halfway and continue fol lowup with Wound Care, Dr. Anderson, as scheduled. LB/MODL Voice ID: [id number] Report ID: [id number]
[2025-03-05 06:55] VITALS: BP 122/58; TEMP 97.9
== END 2025-03-05 13:00 | disposition home health service (06) | DRG 560 ==
LOC: 5TH 16:35
PROVIDERS: ADMIT Psychiatry & Neurology Neurology with Special Qualifications in Child Neurology; ATTEND Psychiatry & Neurology Neurology with Special Qualifications in Child Neurology
DX: Z47.81 Encounter for orthopedic aftercare following surgical amputation (principal); E46 Unspecified protein-calorie malnutrition; I50.30 Unspecified diastolic (congestive) heart failure; Z59.00 Homelessness unspecified; Z89.512 Acquired absence of left leg below knee; Z89.511 Acquired absence of right leg below knee; G54.6 Phantom limb syndrome with pain; M25.512 Pain in left shoulder; M25.511 Pain in right shoulder; M62.838 Other muscle spasm; M54.9 Dorsalgia, unspecified; E11.40 Type 2 diabetes mellitus with diabetic neuropathy, unspecified; I73.9 Peripheral vascular disease, unspecified; G40.909 Epilepsy, unspecified, not intractable, without status epilepticus; I11.0 Hypertensive heart disease with heart failure; J44.9 Chronic obstructive pulmonary disease, unspecified; F10.10 Alcohol abuse, uncomplicated; F32.A Depression, unspecified; I25.10 Atherosclerotic heart disease of native coronary artery without angina pectoris; K21.9 Gastro-esophageal reflux disease without esophagitis; R10.9 Unspecified abdominal pain; R05.9 Cough, unspecified; E78.5 Hyperlipidemia, unspecified; F41.9 Anxiety disorder, unspecified; Z68.23 Body mass index [BMI] 23.0-23.9, adult; F17.210 Nicotine dependence, cigarettes, uncomplicated
CPT/HCPCS: 36415; 80048; 81003; 82040; 82947; 83735; 84134; 85025; 87070; 87077; 87186; 87205; 92523; 97110; 97112; 97161; 97165; 97530; 97542; J2003

== ENCOUNTER 2025-03-18 13:06 | Emergency (ER) | payer OTHER ==
[2025-03-18] MEDS ORDERED: HYDROCODONE/APAP 7.5/325 MG TAB ONE (13:29)
--- NOTE | 2025-03-18 14:25 | RAD REPORT ---
EXAMINATION: Tib Fib Left CLINICAL INDICATION: Leg pain FINDINGS: Below the knee amputation. No fracture visualized
--- NOTE | 2025-03-18 14:25 | RAD REPORT ---
EXAMINATION: Tib Fib Right CLINICAL INDICATION: Leg pain FINDINGS: Below the knee amputation. Osteoporosis No fracture visualized.
--- NOTE | 2025-03-18 14:26 | RAD REPORT ---
Exam:Shoulder Left 2+ Views HISTORY: Left shoulder pain FINDINGS: Anterior dislocation left shoulder. 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
--- NOTE | 2025-03-18 14:27 | RAD REPORT ---
Exam:Shoulder Right 2+ Views History: Right shoulder pain Findings: No fracture seen. The humeral head is high riding likely secondary to chronic rotator cuff tear
--- NOTE | 2025-03-18 14:29 | ER ---
Nurse's Notes [facility] Name: Karlos Leblanc Age: 59 yrs Sex: Male : 1965 Arrival Date: 03/18/2025 Time: 13:06 Bed 7 Private MD: Diagnosis: Fall (on)(from) incline Presentation: 03/18 13:12 Chief complaint: EMS states: home healthcare toned us out for a fall that occurred last zm night due to a seizure, pt c/o pain in shoulder and lower extremities being red and inflammed. Coronavirus screen: Vaccine status: Patient reports receiving the 2nd dose of the covid vaccine. Client denies travel out of the [place] in the last 14 days. At this time, the client does not indicate any symptoms associated with coronavirus-19. Ebola Screen: Patient denies travel to an Ebola-affected area in the 21 days before illness onset. No symptoms or risks identified at this time. Initial Sepsis Screen: Does the patient meet any 2 criteria? No. Patient's initial sepsis screen is negative. Does the patient have a suspected source of infection? No. Patient's initial sepsis screen is negative. Risk Assessment: Do you want to hurt yourself or someone else? Patient reports no desire to harm self or others. Onset of symptoms was March 17, 2025. 13:12 Method Of Arrival: EMS: [facility] 13:12 Acuity: KENIA 3 zm Triage Assessment: 13:17 General: Appears in no apparent distress. uncomfortable, Behavior is calm, cooperative. zm Pain: Complains of pain in right knee, left knee and back Pain currently is 8 out of 10 on a pain scale. Pain began 1 day ago. Aggravated by movement. EENT: No signs and/or symptoms were reported regarding the EENT system. Neuro: Level of Consciousness is awake, alert, obeys commands, Oriented to person, place, time, situation. Cardiovascular: Patient's skin is warm and dry. Respiratory: Airway is patent Respiratory effort is even, unlabored, Respiratory pattern is regular, symmetrical. GI: No signs and/or symptoms were reported involving the gastrointestinal system. : No signs and/or symptoms were reported regarding the genitourinary system. Musculoskeletal: Amputation of Bilateral BKA. Historical: - Allergies: 13:17 NKDA; zm - PMHx: 13:17 Chronic obstructive lung disease; Hypertension; Myocardial infarction; vascular disease zm (Right toes amputati); Seizures; - PSHx: 13:17 cardiac stents; Left Leg Amputation (below the knee); Right leg amputation (BKA); zm - Immunization history:: Adult Immunizations up to date. - Infectious Disease History:: Denies. - Social history:: Smoking status: unknown. Screenin:21 [facility] ED Fall Risk Assessment (Adult) History of falling in the last 3 months, zm including since admission Yes- physiologic fall (2 pts) Confusion or Disorientation No (0 pts) Intoxicated or Sedated No (0 pts) Impaired Gait Yes (1 pt) Mobility Assist Device Used Yes (1 pt) Altered Elimination Yes (1 pt) Score/Fall Risk Level 3 or more points = High Risk Oriented to surroundings, Maintained a safe environment, Educated pt \T\ family on fall prevention, incl call for assistance when getting out of bed, Assessed \T\ reinforced patient's understanding of fall precautions, Hourly rounding (assess needs \T\ fall precautionary measures) done, Used ambulatory aids as needed (educated on \T\ assisted with), Implemented a Fall Risk Plan of Care, Remained w/in arm's length of patient and in sight while toileting, Offered frequent toileting (1:1 observation). Abuse screen: Denies threats or abuse. Denies injuries from another. Nutritional screening: No deficits noted. Tuberculosis screening: No symptoms or risk factors identified. Assessment: 13:21 Reassessment: see triage assessment. zm 16:00 Reassessment: Patient appears in no apparent distress at this time. Patient and/or cm10 family updated on plan of care and expected duration. Pain level reassessed. Patient is alert, oriented x 3, equal unlabored respirations, skin warm/dry/pink. Vital Signs: 13:12 BP 128 / 72; Pulse 85; Resp 18; Temp 97.8(O); Pulse Ox 100% on R/A; Weight 108.86 kg; zm Height 6 ft. 1 in. ; Pain 8/10; 15:00 BP 141 / 66; Pulse 66; Resp 17; Pulse Ox 100% on R/A; cm10 16:00 BP 149 / 68; Pulse 70; Resp 17; Pulse Ox 100% on R/A; cm10 13:12 Body Mass Index 31.66 (108.86 kg, 185.42 cm) zm 13:12 Pain Scale: Adult zm ED Course: 13:08 Patient arrived in ED. cm10 13:10 Martha Mendez PA-C is PHCP. sb4 13:10 Aaron Pichardo MD is Attending Physician. sb4 13:12 Erum Anderson, RN is Primary Nurse. zm 13:16 Triage completed. zm 13:17 Arm band placed on right wrist. zm 13:21 Patient has correct armband on for positive identification. Placed in gown. Bed in low zm position. Call light in reach. Side rails up X2. Provided Education on: call light use. Client placed on continuous cardiac and pulse oximetry monitoring. NIBP monitoring applied. Door closed. Noise minimized. Lights dimmed. Warm blanket given. Verbal reassurance given. 13:21 No provider procedures requiring assistance completed. zm 13:38 Cleaned of incontinence. cm10 14:10 Tib Fib Left XRAY In Process Unspecified. EDMS 14:10 Tib Fib Right XRAY In Process Unspecified. EDMS 14:10 Shoulder Left (2 View) XRAY In Process Unspecified. EDMS 14:10 Shoulder Right (2 View) XRAY In Process Unspecified. EDMS 16:29 Patient did not have IV access during this emergency room visit. cm10 Administered Medications: 13:37 Drug: Hydrocodone-Acetaminophen PO (7.5 mg-325 mg) 1 tabs PO once Route: PO; zm 14:07 Follow up: Response: No adverse reaction; Pain is decreased cm10 Medication: 13:21 VIS not applicable for this client. Outcome: 14:29 Discharge ordered by . sb4 16:29 Discharged to home via wheelchair, with friend, cm10 16:29 Condition: good 16:29 Discharge instructions given to patient, Instructed on discharge instructions, follow up and referral plans. Demonstrated understanding of instructions, follow-up care, 16:30 Patient left the ED. cm10 Signatures: Dispatcher [employer] Erum Barraza, RN TAVO Martha Mendez PA-C PA-C sb4 Martinez, Clarissa, RN RN cm10 Corrections: (The following items were deleted from the chart) 13:18 13:17 PSHx: Right toes amputation; zm
--- NOTE | 2025-03-18 14:29 | EDPHYS ---
Physician Documentation [facility] Name: Karlos Leblanc Age: 59 yrs Sex: Male : 1965 Arrival Date: 03/18/2025 Time: 13:06 Bed 7 Private MD: ED Physician Aaron Pichardo HPI: 03/18 14:35 This 59 yrs old Male presents to ER via EMS with complaints of Fall Injury. sb4 14:35 Patient with history of seizures, states he had 1 last night and fell out of bed. EMS sb4 initially came out but he refused transport. He was complaining of pain in his arms and legs today so [facility] called EMS again and he agreed to came. Is complaining of pain in bilateral stumps of bilateral shoulders. No other injuries. Historical: - Allergies: 13:17 NKDA; zm - PMHx: 13:17 Chronic obstructive lung disease; Hypertension; Myocardial infarction; vascular disease zm (Right toes amputati); Seizures; - PSHx: 13:17 cardiac stents; Left Leg Amputation (below the knee); Right leg amputation (BKA); zm - Immunization history:: Adult Immunizations up to date. - Infectious Disease History:: Denies. - Social history:: Smoking status: unknown. ROS: 14:35 Constitutional: Negative for fever, chills, and weight loss, sb4 14:35 MS/extremity: Positive for per HPI, 14:35 All other systems are negative, Exam: 14:35 Head/Face: Normocephalic, atraumatic. Eyes: Extra-ocular motions intact. Periorbital sb4 areas with no swelling, redness, or edema. Respiratory: No increased work of breathing, no retractions or nasal flaring. Skin: Warm, dry with normal turgor. Normal color with no rashes, no lesions, and no evidence of cellulitis. 14:35 Constitutional: The patient appears alert, awake, unkempt, 14:35 Musculoskeletal/extremity: Bilateral BKA's. 14:35 Skin: injury, is not appreciated, Vital Signs: 13:12 BP 128 / 72; Pulse 85; Resp 18; Temp 97.8(O); Pulse Ox 100% on R/A; Weight 108.86 kg; zm Height 6 ft. 1 in. ; Pain 8/10; 15:00 BP 141 / 66; Pulse 66; Resp 17; Pulse Ox 100% on R/A; cm10 16:00 BP 149 / 68; Pulse 70; Resp 17; Pulse Ox 100% on R/A; cm10 13:12 Body Mass Index 31.66 (108.86 kg, 185.42 cm) zm 13:12 Pain Scale: Adult zm MDM: 13:10 Medical Screening Exam initiated sb4 14:35 Differential diagnosis: contusion, fracture. Data reviewed: vital signs, nurses notes, sb4 EMS record, radiologic studies, and as a result, I will discharge patient. Care significantly affected by the following chronic conditions: Hypertension, Chronic Obstructive Pulmonary Disease. Counseling: I had a detailed discussion with the patient and/or guardian regarding the historical points, exam findings, and any diagnostic results supporting the discharge/admit diagnosis, radiology results, the need for outpatient follow up, for definitive care, to return to the emergency department if symptoms worsen or persist or if there are any questions or concerns that arise at home. 03/18 13:19 Order name: Tib Fib Left XRAY; Complete Time: 14:27 sb4 03/18 13:19 Order name: Tib Fib Right XRAY; Complete Time: 14:25 sb4 03/18 13:19 Order name: Shoulder Left (2 View) XRAY; Complete Time: 14:27 sb4 03/18 13:19 Order name: Shoulder Right (2 View) XRAY; Complete Time: 14:28 sb4 Administered Medications: 13:37 Drug: Hydrocodone-Acetaminophen PO (7.5 mg-325 mg) 1 tabs PO once Route: PO; zm 14:07 Follow up: Response: No adverse reaction; Pain is decreased cm10 Disposition Summary: 03/18/25 14:29 Discharge Ordered Notes: Location: Home sb4 Problem: new sb4 Symptoms: have improved sb4 Condition: Stable sb4 Diagnosis - Fall (on)(from) incline sb4 Followup: sb4 - With: Private Physician - When: As needed - Reason: Recheck today's complaints, Re-evaluation by your physician Discharge Instructions: - Discharge Summary Sheet sb4 - Fall Prevention in the Home, Adult sb4 Forms: - Patient Portal Instructions sb4 - Leadership Thank You Letter sb4 Signatures: Dispatcher [employer] Erum Barraza RN Martha Monique PA-C PA-C sb4 Thi Anderson RN cm10 Corrections: (The following items were deleted from the chart) 13: 13:17 PSHx: Right toes amputation; chivo waldron 13: 13:19 Tib Fib Left+RAD.RAD.BRZ ordered. EDMS EDMS 13: 13:19 Tib Fib Right+RAD.RAD.BRZ ordered. EDMS EDMS 13: 13:20 Shoulder Left 2 View+RAD.RAD.BRZ ordered. EDMS EDMS 13:20 13:20 Shoulder Right 2 View+RAD.RAD.BRZ ordered. EDMS EDMS
[2025-03-18 19:00] VITALS: TEMP 97.8; O2SAT 100
[2025-03-18 19:03] VITALS: BP 149/68
== END 2025-03-18 16:30 | disposition home or self-care (01) ==
LOC: ER 13:06
DX: S49.92XA Unspecified injury of left shoulder and upper arm, initial encounter (principal); S49.91XA Unspecified injury of right shoulder and upper arm, initial encounter; S79.922A Unspecified injury of left thigh, initial encounter; S79.921A Unspecified injury of right thigh, initial encounter; J44.9 Chronic obstructive pulmonary disease, unspecified; I10 Essential (primary) hypertension; I25.2 Old myocardial infarction; R56.9 Unspecified convulsions; W06.XXXA Fall from bed, initial encounter; Y93.9 Activity, unspecified; Y92.013 Bedroom of single-family (private) house as the place of occurrence of the external cause; Z89.512 Acquired absence of left leg below knee; Z89.511 Acquired absence of right leg below knee; Z95.5 Presence of coronary angioplasty implant and graft
CPT/HCPCS: 99284